=== PATIENT | female | born 1995 | race Caucasian/White ===

== ENCOUNTER 2023-01-29 16:23 | Emergency (ER) | payer OTHER, SELFPAY ==
[2023-01-29 16:30] VITALS: BP 129/72; PULSE 99; RESP 18; TEMP 36.5; O2SAT 100; BMI 31.0
--- NOTE | 2023-01-29 16:39 | ED_ITS ---
HPI - Ear Problem General Chief complaint: Ear Stated complaint: EAR PAIN Time Seen by Provider: 01/29/23 16:25 Source: patient Mode of arrival: walk-in History of Present Illness HPI Narrative: Patient is a 27-year-old female who presents to the emergency department for one day history of left ear pain. She states the area behind her left ear swollen. She has had no objective fevers or upper respiratory symptoms. There has been no drainage from the left ear. She states her pain is radiating into her jaw. She is currently breast-feeding. Related Data Previous Rx's Medication Instructions Recorded ibuprofen 800 mg tablet 800 mg PO Q8H PRN pain #15 tabs 01/29/23 Allergies Allergy/AdvReac Type Severity Reaction Status Date / Time No Known Drug Allergies Allergy Verified 01/29/23 16:30 Review of Systems ROS Constitutional Denies: fever or chills Ears, nose, mouth, and throat Denies: throat pain Cardiovascular Denies: chest pain Respiratory Denies: shortness of breath or cough Gastrointestinal Denies: nausea or vomiting Musculoskeletal Denies: back pain Integumentary/Breast Denies: rash Neurological Reports: headache Exam Narrative Exam Narrative: Gen.: Awake, alert, in no distress Head: Normocephalic, atraumatic ENT: Moist mucous membranes, small auricular lymph node noted, no overlying erythema or fluctuance. No mastoid tenderness. Bilateral tympanic membranes are clear, left external canal is tender and minimally edematous. No drainage noted. No bleeding noted. No visible dental abscess, pharynx is normal with uvula midline and clear speech. Respiratory: No respiratory distress Extremities: Moves extremities equally Psych: Normal mood and affect Neuro: No focal neuro deficit Skin: Warm, dry, intact Constitutional Vital Signs, click to edit/add: Last Vital Signs Temp 97.7 F 01/29/23 16:30 Pulse 99 H 01/29/23 16:30 Resp 18 01/29/23 16:30 BP 129/72 01/29/23 16:30 Pulse Ox 100 01/29/23 16:30 O2 Del Method Room Air 01/29/23 16:30 Course Vital Signs Vital signs: Vital Signs Temperature 97.7 F 01/29/23 16:30 Pulse Rate 99 H 01/29/23 16:30 Respiratory Rate 18 01/29/23 16:30 Blood Pressure 129/72 01/29/23 16:30 Pulse Oximetry 100 01/29/23 16:30 Oxygen Delivery Method Room Air 01/29/23 16:30 Temperature 97.7 F 01/29/23 16:30 Pulse Rate 99 H 01/29/23 16:30 Respiratory Rate 18 01/29/23 16:30 Blood Pressure 129/72 01/29/23 16:30 Pulse Oximetry 100 01/29/23 16:30 Oxygen Delivery Method Room Air 01/29/23 16:30 Medical Decision Making MDM Narrative Medical decision making narrative: Exam is consistent with a radicular lymphadenopathy and early otitis externa although at this time there is no severe infection or evidence of mastoiditis noted. Patient prescribed ibuprofen for pain and swelling as she is breast- feeding. Ciprodex drops given for the left ear. Follow-up with PCP and return to the Emergency Room if symptoms change or worsen. Medical Records Medical records reviewed: Yes I reviewed the patient's medical records Discharge Plan Discharge Chief Complaint: Ear Clinical Impression: Left otitis externa Patient Disposition: Home, Self-Care Time of Disposition Decision: 16:38 Condition: Good Prescriptions / Home Meds: New ibuprofen 800 mg tablet 800 mg PO Q8H PRN (Reason: pain) Qty: 15 0RF Instructions: [facility] (ED) Stand Alone Forms: Portal Instructions Referrals: DUARTE VALDERRAMA [Primary Care Provider] - 1 week
[2023-01-29] MEDS: CIPROFLOXACIN HCL/DEXAMETH 0.3%/0.1% OTIC SUSP 150 DROP/7.5 ML BOTTLE OT (16:48)
== END 2023-01-29 16:49 | disposition home or self-care (01) ==
PROVIDERS: Emergency Provider Student in an Organized Health Care Education/Training Program; PCP Nurse Practitioner Family
DX: H60.92 Unspecified otitis externa, left ear (principal)
CPT/HCPCS: 99282

== ENCOUNTER 2023-01-30 13:30 | Outpatient (OUT) | payer OTHER, SELFPAY ==
[2023-01-30 14:40] LABS: HCG Quantitative 1 mIU/mL
== END 2023-01-30 13:31 | disposition home or self-care (01) ==
LOC: LAB 13:33
PROVIDERS: PCP Nurse Practitioner Family; Visit Provider Obstetrics & Gynecology
DX: N92.6 Irregular menstruation, unspecified (principal)
CPT/HCPCS: 36415; 84702

== ENCOUNTER 2023-02-01 10:03 | Outpatient (OUT) | payer OTHER, SELFPAY ==
[2023-02-01 10:37] LABS: Bilirubin Urine NEGATIVE (NEGATIVE); Blood Urine TRACE-I (NEGATIVE); Clarity Urine CLEAR (CLEAR); Color Urine YELLOW (YELLOW); Glucose Urine UA NEGATIVE (NEGATIVE); Ketones Urine NEGATIVE (NEGATIVE); Leukocyte Esterase Urine NEGATIVE (NEGATIVE); Nitrite Urine POSITIVE (NEGATIVE); Protein Urine NEGATIVE (NEG/TRACE); Specific Gravity Urine 1.025 (1.005-1.025); pH Urine 6.5 (5.0-9.0)
[2023-02-01 10:41] LABS: Basophils Absolute Auto 0.1 10^3/uL (0.0-0.1); Eosinophils Absolute Auto 0.2 10^3/uL (0.0-0.7); Eosinophils Percent Auto 3.8 % (0.9-7.0); Immature Granulocytes Abs Auto 0.02 10^3/uL (0.00-0.03); Immature Granulocytes Pct Auto 0.3 % (0.0-0.5); Lymphocytes Absolute Auto 2.3 10^3/uL (1.2-3.8); Lymphocytes Percent Auto 36.9 % (20.5-60.0); Mean Corpuscular HGB Conc 33.3 g/dL (29.9-35.2); Mean Corpuscular Volume 87.1 fL (81.0-99.0); Mean Platelet Volume 9.5 fL (9.5-13.5); Monocytes Absolute Auto 0.5 10^3/uL (0.3-0.8); Monocytes Percent Auto 8.5 % (1.7-12.0); Neutrophils Percent Auto 49.5 % (43.0-75.0); Platelet Count 328 10^3/uL (150-450); Red Blood Count 4.48 10^6/uL (4.20-5.40); Red Cell Distribution Width 13.9 % (11.0-15.0); White Blood Count 6.1 10^3/uL (4.0-11.0)
[2023-02-01 10:57] LABS: Estimated Average Glucose 94 mg/dL; Glycohemoglobin A1C 4.9 % (4.5-6.2)
[2023-02-01 11:26] LABS: Alanine Aminotransferase 63 U/L (14-59); Albumin Globulin Ratio 1.1; Albumin Level 3.9 g/dL (3.4-5.0); Alkaline Phosphatase 124 U/L (46-116); Anion Gap 11.8; Aspartate Amino Transferase 28 U/L (15-37); BUN Creatinine Ratio 13.8; Bilirubin Total 0.9 mg/dL (0.2-1.0); Calcium 8.7 mg/dL (8.5-10.1); Carbon Dioxide 27.4 mmol/L (21.0-32.0); Chloride 105 mmol/L (98-107); Chol HDL Ratio 2.6; Cholesterol 176 mg/dL (<=200); Estimated GFR (African America >60 (>=60); Estimated GFR (Non-African Ame >60 (>=60); Free T3 2.97 pg/mL (2.18-3.98); Globulin 3.4 g/dL; Glucose 101 mg/dL (74-106); HDL Cholesterol 67 mg/dL (40-60); Potassium 4.2 mmol/L (3.5-5.1); Sodium 140 mmol/L (136-145); Thyroid Stimulating Hormone 1.714 uIU/mL (0.358-3.740); Total Protein 7.3 g/dL (6.4-8.2); Triglycerides 39 mg/dL (<=150); VLDL CHOLESTEROL 7.8 mg/dL
[2023-02-02 11:09] LABS: Insulin 14.2 uIU/mL (2.6-24.9)
== END 2023-02-01 10:04 | disposition home or self-care (01) ==
LOC: LAB 10:03
PROVIDERS: PCP Nurse Practitioner Family; Visit Provider Nurse Practitioner Family
DX: Z00.00 Encounter for general adult medical examination without abnormal findings (principal); R30.0 Dysuria; N92.6 Irregular menstruation, unspecified
CPT/HCPCS: 36415; 80053; 80061; 81003; 82306; 83036; 83525; 83540; 84436; 84443; 84481; 84702; 85025; 87086

== ENCOUNTER 2023-02-01 10:06 | Outpatient (OUT) | payer OTHER, SELFPAY ==
[2023-02-01 11:24] LABS: HCG Quantitative <1 mIU/mL
== END 2023-02-01 10:07 | disposition home or self-care (01) ==
PROVIDERS: PCP Nurse Practitioner Family; Visit Provider Obstetrics & Gynecology
DX: N92.6 Irregular menstruation, unspecified (principal)
CPT/HCPCS: 36415; 84702

== ENCOUNTER 2023-03-19 20:23 | Emergency (ER) | payer OTHER, SELFPAY ==
[2023-03-19 20:26] VITALS: BP 137/81; PULSE 100; RESP 18; TEMP 36.8; O2SAT 99; BMI 30.9
[2023-03-19 20:33] VITALS: O2SAT 99
--- NOTE | 2023-03-19 20:36 | US_ITS ---
The [address] [address] Patient Name: SANDY GODINEZ MRN: [id number] date: 1995 Sex: F Assigned Patient Location: ER Current Patient Location: ED.MAIN Accession/Order Number: [id number] Exam Date: 03/19/2023 20:59 Report Date: 03/19/2023 21:57 At the request of: DAYO ALVES Procedure: US pelvis transvaginal US pelvis transvaginal HISTORY: Left ovarian torsion COMPARISONS: CT pelvis dated 01/15/2022. TECHNIQUE: Transvaginal sonography of the pelvis was performed. FINDINGS: UTERUS: Normal in size and echogenicity. The uterus measures 8.3 x 4.1 x 4.3 cm. MYOMETRIUM:Unremarkable. ENDOMETRIUM: The endometrium is slightly thickened and heterogeneous in echogenicity measuring 1.77 cm. RIGHT OVARY: Within normal limits without suspicious masses or cyst. There is normal blood flow. The right ovary measures 1.9 x 1.6 x 1.4 cm. LEFT OVARY: Within normal limits without suspicious masses or cyst. There is normal blood flow. The left ovary measures 2.6 x 1.6 x 1.8 cm. OTHER:There is no significant free fluid in the pelvis. There are prominent vessels in the left adnexa. US/US pelvis transvaginal IMPRESSION: 1. No evidence of ovarian torsion. 2. Thickened endometrium demonstrating slight heterogeneity. 3. Prominent left adnexal vessels may be seen in a setting of pelvic congestion syndrome. Electronically authenticated by: NERI SPENCER Date: 03/19/2023 21:57
--- NOTE | 2023-03-19 20:39 | ED_ITS ---
HPI - Female Genitourinary General Chief complaint: Abdominal Pain Stated complaint: Cramping, Bleedling, Shooting pain down leg Time Seen by Provider: 03/19/23 20:25 Source: patient Mode of arrival: walk-in History of Present Illness HPI Narrative: patient is a 27-year-old female who presents to the emergency department for pelvic pain. Patient states she is five days late for her regular menstrual period. She states today she noticed brown spotting this morning and has now developed significant pelvic pain, primarily on the left side. She states the pain is shooting down her leg. She states she feels dizzy, nauseous and does not feel right. She is only noticing bleeding when she urinates, she has not had any dysuria. No fevers or vomiting. She is unsure if she may be . No medications taken prior to arrival. Related Data Previous Rx's Medication Instructions Recorded ibuprofen 800 mg tablet 800 mg PO Q8H PRN pain #15 tabs 01/29/23 ibuprofen 600 mg tablet 600 mg PO QID PRN pain #20 tabs 03/19/23 ondansetron 4 mg disintegrating 4 mg PO Q6H PRN nausea and 03/19/23 tablet vomiting #12 tabs Allergies Allergy/AdvReac Type Severity Reaction Status Date / Time No Known Drug Allergies Allergy Verified 01/29/23 16:30 Review of Systems ROS Constitutional Denies: fever or chills Cardiovascular Denies: chest pain Respiratory Denies: shortness of breath or cough Gastrointestinal Reports: abdominal pain and nausea; Denies: vomiting or diarrhea Genitourinary Denies: painful urination Musculoskeletal Denies: back pain Integumentary/Breast Denies: rash Neurological Reports: dizziness Hematologic/Lymphatic Denies: easy bruising Exam Narrative Exam Narrative: Gen.: Awake, alert, in no distress Head: Normocephalic, atraumatic ENT: Moist mucous membranes Respiratory: No respiratory distress Gastrointestinal: Abdomen is soft, nondistended and tender to palpation in the left lower quadrant, voluntary guarding with no rebound; no right lower quadrant tenderness or McBurney's point tenderness, no flank or CVA tenderness Extremities: Moves extremities equally Psych: Normal mood and affect Neuro: No focal neuro deficit Skin: Warm, dry, intact Constitutional Vital Signs, click to edit/add: Last Vital Signs Temp 98.3 F 03/19/23 20:26 Pulse 100 H 03/19/23 20:26 Resp 18 03/19/23 20:26 BP 137/81 03/19/23 20:26 Pulse Ox 99 03/19/23 20:33 O2 Del Method Room Air 03/19/23 20:33 Course Vital Signs Vital signs: Vital Signs Temperature 98.3 F 03/19/23 20:26 Pulse Rate 100 H 03/19/23 20:26 Respiratory Rate 18 03/19/23 20:26 Blood Pressure 137/81 03/19/23 20:26 Pulse Oximetry 99 03/19/23 20:26 Oxygen Delivery Method Room Air 03/19/23 20:26 Temperature 98.3 F 03/19/23 20:26 Pulse Rate 100 H 03/19/23 20:26 Respiratory Rate 18 03/19/23 20:26 Blood Pressure 137/81 03/19/23 20:26 Pulse Oximetry 99 03/19/23 20:33 Oxygen Delivery Method Room Air 03/19/23 20:33 MDM - Female Genitourinary MDM Narrative Medical decision making narrative: her patient was given IV fluids, she declined morphine and was given Toradol and Zofran. Lab studies are unremarkable, test is negative. Urine specimen shows blood with no evidence of infection. Ultrasound shows no evidence of ovarian torsion or ruptured cyst. 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 Zofran and ibuprofen given for home. Return to the Emergency Room if symptoms change or worsen. Medical Records Attestation: I reviewed the patient's medical records. Lab Data Attestation: I reviewed the patient's lab results. Labs: Lab Results 03/19/23 03/19/23 Range/Units 20:40 20:46 WBC 6.2 (4.0-11.0) 10^3/uL RBC 4.30 (4.20-5.40) 10^6/uL Hgb 12.5 (12.0-16.0) g/dL Hct 38.1 (36.0-48.0) % MCV 88.6 (81.0-99.0) fL MCH 29.1 (26.7-34.0) pg MCHC 32.8 (29.9-35.2) g/dL RDW 13.0 (11.0-15.0) % Plt Count 310 (150-450) 10^3/uL MPV 9.5 (9.5-13.5) fL Neut % (Auto) 60.3 (43.0-75.0) % Lymph % (Auto) 18.8 L (20.5-60.0) % [place] % (Auto) 16.1 H (1.7-12.0) % Eos % (Auto) 3.4 (0.9-7.0) % Baso % (Auto) 1.1 (0.2-2.0) % Neut # (Auto) 3.8 (1.4-6.5) 10^3/uL Lymph # (Auto) 1.2 (1.2-3.8) 10^3/uL [place] # (Auto) 1.0 H (0.3-0.8) 10^3/uL Eos # (Auto) 0.2 (0.0-0.7) 10^3/uL Baso # (Auto) 0.1 (0.0-0.1) 10^3/uL Abs Immat Gran (auto) 0.02 (0.00-0.03) 10^3/uL Imm/Tot Granulo (auto) 0.3 (0.0-0.5) % Sodium 136 (136-145) mmol/L Potassium 3.2 L (3.5-5.1) mmol/L Chloride 102 (98-107) mmol/L Carbon Dioxide 27.7 (21.0-32.0) mmol/L Anion Gap 9.5 BUN 7.0 (7.0-18.0) mg/dL Creatinine 0.69 (0.55-1.02) mg/dL Est GFR ( Amer) >60 (>=60) Est GFR (Non-Af Amer) >60 (>=60) BUN/Creatinine Ratio 10.1 Glucose 97 (74-106) mg/dL Calcium 8.9 (8.5-10.1) mg/dL Total Bilirubin 0.5 (0.2-1.0) mg/dL AST 15 (15-37) U/L ALT 32 (14-59) U/L Alkaline Phosphatase 114 (46-116) U/L Total Protein 7.6 (6.4-8.2) g/dL Albumin 3.9 (3.4-5.0) g/dL Globulin 3.7 g/dL Albumin/Globulin Ratio 1.1 Serum HCG, Qual Negative (NEGATIVE) Urine Color Lt. yellow (YELLOW) Urine Clarity Clear (CLEAR) Urine pH 7.0 (5.0-9.0) Ur Specific [place] <=1.005 A (1.005-1.025) Urine Protein Negative (NEG/TRACE) mg/dL Urine Glucose (UA) Negative (NEGATIVE) mg/dL Urine Ketones Negative (NEGATIVE) mg/dL Urine Occult Blood Large A (NEGATIVE) Urine Nitrite Negative (NEGATIVE) Urine Bilirubin Negative (NEGATIVE) Urine Urobilinogen 0.2 (0.2-1.0) EU/dL Ur Leukocyte Esterase Negative (NEGATIVE) Urine RBC 2-5 A (0-2) #/HPF Urine WBC 0-2 A (NONE SEEN) #/HPF Ur Squamous Epith Cells Few A (NONE/RARE) #/LPF Urine Crystals None seen (None Seen) #/HPF Urine Bacteria Small A (NONE SEEN) #/HPF Urine Casts None seen (NONE SEEN) #/LPF Urine Mucus None seen (NONE SEEN) Ur Culture Indicated? No Imaging Data US pelvis: Attestation: I have reviewed the pertinent imaging results. Discharge Plan Discharge Chief Complaint: Abdominal Pain Clinical Impression: Pelvic pain, Nausea Patient Disposition: Home, Self-Care Time of Disposition Decision: 21:51 Condition: Good Prescriptions / Home Meds: New ibuprofen 600 mg tablet 600 mg PO QID PRN (Reason: pain) Qty: 20 0RF ondansetron 4 mg tablet,disintegrating 4 mg PO Q6H PRN (Reason: nausea and vomiting) Qty: 12 0RF No Action ibuprofen 800 mg tablet 800 mg PO Q8H PRN (Reason: pain) Qty: 15 0RF Instructions: Pelvic Pain in Women (ED) Stand Alone Forms: Portal Instructions Referrals: Edward Campuzano DO [Physician] - 1 week DUARTE VALDERRAMA [Primary Care Provider] - 1 week
[2023-03-19] MEDS: ONDANSETRON PF 4 MG/2 ML VIAL IV (20:50)
[2023-03-19] MEDS: 0.9 % SODIUM CHLORIDE 1,000 ML 999 ML IV (20:54)
[2023-03-19 20:57] LABS: Basophils Absolute Auto 0.1 10^3/uL (0.0-0.1); Basophils Percent Auto 1.1 % (0.2-2.0); Eosinophils Absolute Auto 0.2 10^3/uL (0.0-0.7); Eosinophils Percent Auto 3.4 % (0.9-7.0); Hematocrit 38.1 % (36.0-48.0); Hemoglobin 12.5 g/dL (12.0-16.0); Immature Granulocytes Abs Auto 0.02 10^3/uL (0.00-0.03); Immature Granulocytes Pct Auto 0.3 % (0.0-0.5); Lymphocytes Absolute Auto 1.2 10^3/uL (1.2-3.8); Lymphocytes Percent Auto 18.8 % (20.5-60.0); Mean Corpuscular HGB Conc 32.8 g/dL (29.9-35.2); Mean Corpuscular Hemoglobin 29.1 pg (26.7-34.0); Mean Corpuscular Volume 88.6 fL (81.0-99.0); Mean Platelet Volume 9.5 fL (9.5-13.5); Monocytes Percent Auto 16.1 % (1.7-12.0); Neutrophils Absolute Auto 3.8 10^3/uL (1.4-6.5); Neutrophils Percent Auto 60.3 % (43.0-75.0); Platelet Count 310 10^3/uL (150-450); White Blood Count 6.2 10^3/uL (4.0-11.0)
[2023-03-19 20:58] LABS: Bilirubin Urine NEGATIVE (NEGATIVE); Blood Urine LARGE (NEGATIVE); Clarity Urine CLEAR (CLEAR); Color Urine LT. YELLOW (YELLOW); Glucose Urine UA NEGATIVE (NEGATIVE); Ketones Urine NEGATIVE (NEGATIVE); Leukocyte Esterase Urine NEGATIVE (NEGATIVE); Nitrite Urine NEGATIVE (NEGATIVE); Protein Urine NEGATIVE (NEG/TRACE); Specific Gravity Urine <=1.005 (1.005-1.025); Urobilinogen Urine 0.2 EU/dL (0.2-1.0)
[2023-03-19 20:59] LABS: Urine Microscopic Indicated YES
[2023-03-19 21:06] LABS: Bacteria Urine SMALL #/HPF (NONE SEEN); Cast Seen? NONE SEEN #/LPF (NONE SEEN); Crystals Seen? None Seen #/HPF (None Seen); Mucus Urine NONE SEEN (NONE SEEN); Squamous Epithelial Cell Urine FEW #/LPF (NONE/RARE); Urine Culture Indicated NO; WBC Urine 0-2 #/HPF (NONE SEEN)
[2023-03-19 21:07] LABS: HCG Qualitative NEGATIVE (NEGATIVE)
[2023-03-19 21:11] LABS: Alanine Aminotransferase 32 U/L (14-59); Albumin Globulin Ratio 1.1; Albumin Level 3.9 g/dL (3.4-5.0); Alkaline Phosphatase 114 U/L (46-116); Anion Gap 9.5; Aspartate Amino Transferase 15 U/L (15-37); BUN Creatinine Ratio 10.1; Bilirubin Total 0.5 mg/dL (0.2-1.0); Calcium 8.9 mg/dL (8.5-10.1); Carbon Dioxide 27.7 mmol/L (21.0-32.0); Chloride 102 mmol/L (98-107); Estimated GFR (African America >60 (>=60); Estimated GFR (Non-African Ame >60 (>=60); Globulin 3.7 g/dL; Glucose 97 mg/dL (74-106); Potassium 3.2 mmol/L (3.5-5.1); Sodium 136 mmol/L (136-145); Total Protein 7.6 g/dL (6.4-8.2)
[2023-03-19] MEDS: KETOROLAC TROMETHAMINE 30 MG/ML VIAL IVP (21:50)
[2023-03-19] MEDS: ACETAMINOPHEN 325 MG TABLET 650 MG PO (23:01)
[2023-03-19] MEDS: POTASSIUM CHLORIDE 10 MEQ ER TABLET 40 MEQ PO (23:02)
== END 2023-03-19 23:07 | disposition home or self-care (01) ==
PROVIDERS: Physician Assistant; Emergency Provider Student in an Organized Health Care Education/Training Program; PCP Nurse Practitioner Family
DX: R10.2 Pelvic and perineal pain (principal); R11.0 Nausea
CPT/HCPCS: 36415; 76830; 80053; 81001; 84703; 85025; 96361; 96374; 96375; 99285

== ENCOUNTER 2023-06-29 11:26 | Emergency (ER) | payer OTHER, SELFPAY ==
[2023-06-29 11:29] VITALS: BP 152/85; PULSE 89; RESP 18; TEMP 36.8; O2SAT 98; BMI 29.2
--- NOTE | 2023-06-29 11:48 | US_ITS ---
The [address] [address] Patient Name: SANDY GODINEZ MRN: [id number] date: 1995 Sex: F Assigned Patient Location: ER Current Patient Location: ER Accession/Order Number: [id number] Exam Date: 06/29/2023 12:11 Report Date: 06/29/2023 13:41 At the request of: MAYNOR REYES Procedure: US OB transvaginal EXAM: Ultrasound OB pelvis INDICATION: 27 years old Female presenting with left-sided pelvic pain x1 day. COMPARISON: Transvaginal ultrasound 03/19/2023 TECHNIQUE: Transvaginal Grayscale and color Doppler imaging of the pelvis. FINDINGS: No beta hCG value available at the time of this dictation. Anteflexed uterus. Normal appearing intrauterine gestational sac and yolk sac. MSD: 0.9 cm. No pole visualized. 1.2 x 1.5 x 0.7 cm subchorionic hematoma. Closed cervix 3.3 cm in length. Right ovary not visualized. Left ovary: 2.0 x 2.1 x 2.0 cm. No free fluid in the pelvis. US/US OB transvaginal IMPRESSION: 1. Single intrauterine gestational sac with small subchorionic hematoma. No pole visualized at this time likely secondary to early gestational age. Electronically authenticated by: JUDY TALLEY Date: 06/29/2023 13:41
[2023-06-29 12:01] LABS: Bilirubin Urine SMALL (NEGATIVE); Blood Urine SMALL (NEGATIVE); Clarity Urine SL CLOUDY (CLEAR); Color Urine YELLOW (YELLOW); Glucose Urine UA NEGATIVE (NEGATIVE); Ketones Urine TRACE mg/dL (NEGATIVE); Leukocyte Esterase Urine SMALL (NEGATIVE); Nitrite Urine NEGATIVE (NEGATIVE); Protein Urine NEGATIVE (NEG/TRACE); Specific Gravity Urine 1.025 (1.005-1.025)
[2023-06-29 12:02] LABS: Basophils Absolute Auto 0.1 10^3/uL (0.0-0.1); Basophils Percent Auto 1.1 % (0.2-2.0); Eosinophils Absolute Auto 0.2 10^3/uL (0.0-0.7); Eosinophils Percent Auto 3.1 % (0.9-7.0); Hematocrit 40.5 % (36.0-48.0); Hemoglobin 13.1 g/dL (12.0-16.0); Immature Granulocytes Abs Auto 0.03 10^3/uL (0.00-0.03); Immature Granulocytes Pct Auto 0.5 % (0.0-0.5); Lymphocytes Absolute Auto 2.1 10^3/uL (1.2-3.8); Lymphocytes Percent Auto 32.2 % (20.5-60.0); Mean Corpuscular HGB Conc 32.3 g/dL (29.9-35.2); Mean Corpuscular Hemoglobin 28.5 pg (26.7-34.0); Mean Platelet Volume 9.9 fL (9.5-13.5); Monocytes Absolute Auto 0.5 10^3/uL (0.3-0.8); Monocytes Percent Auto 8.1 % (1.7-12.0); Neutrophils Absolute Auto 3.5 10^3/uL (1.4-6.5); Platelet Count 308 10^3/uL (150-450); Red Cell Distribution Width 13.4 % (11.0-15.0); White Blood Count 6.4 10^3/uL (4.0-11.0)
[2023-06-29 12:04] LABS: Urine Microscopic Indicated YES
[2023-06-29] MEDS: ACETAMINOPHEN 325 MG TABLET 650 MG PO (12:04)
[2023-06-29 12:08] LABS: Bacteria Urine LARGE #/HPF (NONE SEEN); Cast Seen? NONE SEEN #/LPF (NONE SEEN); Crystals Seen? None Seen #/HPF (None Seen); Mucus Urine MODERATE (NONE SEEN); Squamous Epithelial Cell Urine MODERATE #/LPF (NONE/RARE); Urine Culture Indicated YES
[2023-06-29 12:16] LABS: Alanine Aminotransferase 126 U/L (14-59); Albumin Globulin Ratio 0.9; Albumin Level 3.6 g/dL (3.4-5.0); Alkaline Phosphatase 121 U/L (46-116); Anion Gap 13.4; Aspartate Amino Transferase 40 U/L (15-37); BUN Creatinine Ratio 10.1; Carbon Dioxide 25.2 mmol/L (21.0-32.0); Chloride 102 mmol/L (98-107); Estimated GFR (African America >60 (>=60); Estimated GFR (Non-African Ame >60 (>=60); Globulin 3.8 g/dL; Glucose 110 mg/dL (74-106); Potassium 3.6 mmol/L (3.5-5.1); Sodium 137 mmol/L (136-145); Total Protein 7.4 g/dL (6.4-8.2)
[2023-06-29 12:26] VITALS: BP 144/71
[2023-06-29 12:42] LABS: HCG Quantitative 16294 mIU/mL
--- NOTE | 2023-06-29 15:14 | ED.FEMALEGU1 ---
HPI - Female Genitourinary General Chief complaint: Urogenital-Female Stated complaint: PELVIC PAIN 6 WEEKS Time Seen by Provider: 06/29/23 11:48 Source: patient Mode of arrival: walk-in Limitations: no limitations History of Present Illness HPI Narrative: The patient is 6 weeks coming to the ER with a left groin pain she mentioned that this is her third and she did had some hip pain before with but not as much as today. No fever no chills no change in bowel movement no abdominal pain and she does have some nausea. She did not have her follow-up with the [employer] doctor yet. No vaginal bleeding and the patient is O- blood group Related Data Previous Rx's Medication Instructions Recorded amoxicillin 875 mg-potassium 1 tab PO Q12H #14 tabs 06/29/23 clavulanate 125 mg tablet Allergies Allergy/AdvReac Type Severity Reaction Status Date / Time No Known Drug Allergies Allergy Verified 01/29/23 16:30 Review of Systems ROS Status of ROS 10 or more systems reviewed and unremarkable except as noted in history and below PFSH [facility] Social History Smoking status: Never smoker Exam Narrative Exam Narrative: Nurses notes and vital signs reviewed and patient is not hypoxic. General: Well-appearing and in no apparent distress. Skin: Warm, dry, no pallor noted. No rash. Head: Normocephalic, atraumatic. Neck: Supple, non-tender. Eye: Pupils are equal, round and EOMI. No scleral icterus. Ears, Nose, Mouth, and Throat: TM are clear, no nasal mucosal hypertrophy. Oral mucosa is moist, no posterior oropharynx erythema, uvula is mid-line Cardiovascular: Regular Rate and Rhythm without murmur, gallop or rub. Respiratory: No accessory muscle use or respiratory distress. Lungs are clear to auscultation, no wheezing, rales or rhonchi Chest Wall: no tenderness Back: No midline thoracic or lumbar vertebral tenderness. No CVA tenderness Musculoskeletal: normal ROM, no calf or popliteal tenderness, no lower extremity edema/swelling, the patient have some left groin pain with no hernia or any swelling noted GI: Abdomen is soft, non-distended. Normal bowel sounds. No masses appreciated. No tenderness to palpation. No rebound, guarding, or rigidity noted. Neurological: A&O x4. No cranial nerve dysfunction observed. No truncal ataxia. Moves all extremities. Sensation intact. Psychiatric: Cooperative and interactive. Normal mood and affect. Constitutional Vital Signs, click to edit/add: Last Vital Signs Temp 98.2 F 06/29/23 11:29 Pulse 89 06/29/23 11:29 Resp 18 06/29/23 11:29 BP 144/71 H 06/29/23 12:26 Pulse Ox 98 06/29/23 11:29 O2 Del Method Room Air 06/29/23 11:29 Course Vital Signs Vital signs: Vital Signs Temperature 98.2 F 06/29/23 11:29 Pulse Rate 89 06/29/23 11:29 Respiratory Rate 18 06/29/23 11:29 Blood Pressure 152/85 H 06/29/23 11:29 Pulse Oximetry 98 06/29/23 11:29 Oxygen Delivery Method Room Air 06/29/23 11:29 Temperature 98.2 F 06/29/23 11:29 Pulse Rate 89 06/29/23 11:29 Respiratory Rate 18 06/29/23 11:29 Blood Pressure 144/71 H 06/29/23 12:26 Pulse Oximetry 98 06/29/23 11:29 Oxygen Delivery Method Room Air 06/29/23 11:29 MDM - Female Genitourinary MDM Narrative Medical decision making narrative: CBC and chemistry showed no acute significant pathology it was noted that the patient blood pressure was elevated mildly but when repeated reading it was normal. And also was noted that the patient liver enzymes were mildly elevated she was instructed that she need to follow-up with her primary care doctor for further evaluation of that in 1 week. The patient also had a ultrasound pelvic that shows that the patient have intrauterine with a small subchorionic hematoma I did speak with the OB compensation specialist Dr Campuzano , and he did not recommend any treatment with RhoGam . The patient urine shows some bacteriuria that would be covered with Augmentin and the patient will follow-up with her OB doctor within a week she will take Tylenol as supportive care and monitor her symptoms The patient is to follow up with primary care physician in next 2-3 days or to return to the emergency department should any of the signs or symptoms worsen or new symptoms develop. The patient agrees with the following Diagnosis and Treatment plan and the patient will be discharged home. Lab Data Labs: Lab Results 06/29/23 06/29/23 Range/Units 11:35 11:51 WBC 6.4 (4.0-11.0) 10^3/uL RBC 4.60 (4.20-5.40) 10^6/uL Hgb 13.1 (12.0-16.0) g/dL Hct 40.5 (36.0-48.0) % MCV 88.0 (81.0-99.0) fL MCH 28.5 (26.7-34.0) pg MCHC 32.3 (29.9-35.2) g/dL RDW 13.4 (11.0-15.0) % Plt Count 308 (150-450) 10^3/uL MPV 9.9 (9.5-13.5) fL Neut % (Auto) 55.0 (43.0-75.0) % Lymph % (Auto) 32.2 (20.5-60.0) % [place] % (Auto) 8.1 (1.7-12.0) % Eos % (Auto) 3.1 (0.9-7.0) % Baso % (Auto) 1.1 (0.2-2.0) % Neut # (Auto) 3.5 (1.4-6.5) 10^3/uL Lymph # (Auto) 2.1 (1.2-3.8) 10^3/uL [place] # (Auto) 0.5 (0.3-0.8) 10^3/uL Eos # (Auto) 0.2 (0.0-0.7) 10^3/uL Baso # (Auto) 0.1 (0.0-0.1) 10^3/uL Abs Immat Gran (auto) 0.03 (0.00-0.03) 10^3/uL Imm/Tot Granulo (auto) 0.5 (0.0-0.5) % Sodium 137 (136-145) mmol/L Potassium 3.6 (3.5-5.1) mmol/L Chloride 102 (98-107) mmol/L Carbon Dioxide 25.2 (21.0-32.0) mmol/L Anion Gap 13.4 BUN 7.0 (7.0-18.0) mg/dL Creatinine 0.69 (0.55-1.02) mg/dL Est GFR ( Amer) >60 (>=60) Est GFR (Non-Af Amer) >60 (>=60) BUN/Creatinine Ratio 10.1 Glucose 110 H (74-106) mg/dL Calcium 9.0 (8.5-10.1) mg/dL Total Bilirubin 1.0 (0.2-1.0) mg/dL AST 40 H (15-37) U/L ALT 126 H (14-59) U/L Alkaline Phosphatase 121 H (46-116) U/L Total Protein 7.4 (6.4-8.2) g/dL Albumin 3.6 (3.4-5.0) g/dL Globulin 3.8 g/dL Albumin/Globulin Ratio 0.9 HCG, Quant 74516 mIU/mL Urine Color Yellow (YELLOW) Urine Clarity Sl cloudy (CLEAR) Urine pH 6.0 (5.0-9.0) Ur Specific [place] 1.025 (1.005-1.025) Urine Protein Negative (NEG/TRACE) mg/dL Urine Glucose (UA) Negative (NEGATIVE) mg/dL Urine Ketones Trace A (NEGATIVE) mg/dL Urine Occult Blood Small A (NEGATIVE) Urine Nitrite Negative (NEGATIVE) Urine Bilirubin Small A (NEGATIVE) Urine Urobilinogen 1.0 (0.2-1.0) EU/dL Ur Leukocyte Esterase Small A (NEGATIVE) Urine RBC 2-5 A (0-2) #/HPF Urine WBC 5-10 A (NONE SEEN) #/HPF Ur Squamous Epith Cells Moderate A (NONE/RARE) #/LPF Urine Crystals None seen (None Seen) #/HPF Urine Bacteria Large A (NONE SEEN) #/HPF Urine Casts None seen (NONE SEEN) #/LPF Urine Mucus Moderate A (NONE SEEN) Ur Culture Indicated? Yes Discharge Plan Discharge Chief Complaint: Urogenital-Female Clinical Impression: Pelvic pain, Asymptomatic bacteriuria Patient Disposition: Home, Self-Care Time of Disposition Decision: 14:37 Condition: Good Mode of Transportation: Private Vehicle Prescriptions / Home Meds: New amoxicillin-pot clavulanate 875-125 mg tablet 1 tab PO Q12H Qty: 14 0RF Instructions: Urinary Tract Infection in (ED), Pelvic Pain (ED) Stand Alone Forms: Portal Instructions Referrals: Edward Campuzano DO [Physician] - 1 week DUARTE VALDERRAMA [Primary Care Provider] - 1 week Discharge Date/Time: 06/29/23 14:44
== END 2023-06-29 14:44 | disposition home or self-care (01) ==
PROVIDERS: Emergency Provider Emergency Medicine; PCP Nurse Practitioner Family
DX: O26.891 Other specified pregnancy related conditions, first trimester (principal); R10.2 Pelvic and perineal pain; R82.71 Bacteriuria; Z3A.01 Less than 8 weeks gestation of pregnancy
CPT/HCPCS: 36415; 76817; 80053; 81001; 84702; 85025; 87086; 99285

== ENCOUNTER 2023-07-19 08:27 | Outpatient (OUT) | payer OTHER, SELFPAY ==
--- NOTE | 2023-07-19 08:30 | US_ITS ---
[address] [address] Patient Name: SANDY GODINEZ MRN: [id number] date: 1995 Sex: F Assigned Patient Location: [facility] Current [facility] Accession/Order Number: [id number] Exam Date: 07/19/2023 08:30 Report Date: 07/19/2023 09:02 At the request of: JOSE MIGUEL BOATENG Procedure: US OB transvaginal EXAMINATION: US OB transvaginal HISTORY: MISSED MENSES COMPARISON: Ultrasound OB transvaginal 06/29/2023 FINDINGS: GESTATIONAL SAC: Present and normal appearing. YOLK SAC: Present and normal appearing. POLE: Present and normal appearing. CARDIAC: Present. UTERUS: Small subchorionic hematoma, 1.5 cm. OVARIES: Right: Normal. Left: Normal. CERVIX: 3.5 cm in length and closed. CUL-DE-SAC: Normal. OTHER: None. AGE BY LMP: 9 weeks 0 days NOVA BY LMP: 02/21/2024 AGE BY US CRL: 8 weeks 3 days NOVA BY US CRL: 02/25/2024 US/US OB transvaginal IMPRESSION: 1. Single live intrauterine . Electronically authenticated by: DAVID BLACKMON Date: 07/19/2023 09:02
--- OUTSIDE RECORDS SUMMARY | 2023-07-19 08:33 | XMS_ITS | CCD ---
Author Name Unknown Address [address] [address] [place] [address] Organization [facility] Care Team Providers Care Pest Technician Name Role Phone Farrah Garcia Primary Care Provider VIBHA JOHNSON Attending Unavailable VIBHA JOHNSON Referring Unavailable FARRAH GARCIA Primary Care Unavailable Kelli Oliver Primary Care Physician MISElias, DR LORENZANA Primary Care Unavailable MANOJ CUNNINGHAM Consulting Unavailable MANOJ CUNNINGHAM Admitting Unavailable MANOJ CUNNINGHAM Attending Unavailable ILIR JUAREZ Consulting Unavailable KILO, DR GILLESPIE Attending Unavailable KILO, DR GILLESPIE Admitting Unavailable KARBELIA, DR MIMS Consulting Unavailable REQUEST, NONE LISTED Primary Care Unavaila naina BOATENG, DR GILLESPIE Consulting Unavailable KILO, DR GILLESPIE Procedure Practitioner Unavailab KRISTINA Keller Attending Unavailable KRISTINA VELEZ Consulting Unavailable KRISTINA VELEZ Admitting Unavailable SHRUTI, DR LORENZANA Primary Care Unavailable DAMIAN, DR LYLA Sanchez Consulting Unavailable DAMIAN, DR LYLA Sanchez Admitting Unavailable DAMIAN, DR LYLA Sanchez Attending Unavailable REQUEST, NONE LISTED Primary Care UnavailGagandeep Faustin Consulting Unavailable KILO, DR GILLESPIE Consulting Unavailable MISElias, DR LORENZANA Primary Care Unavailable KILO, DR GILLESPIE Attending Unavailable KILO, DR GILLESPIE Admitting Unavailable MISElias, DR LORENZANA Primary Care Unavailable KRISTINA VELEZ Attending Unavailable KRISTINA VELEZ Consulting Unavailable KRISTINA VELEZ Admitting Unavailable KARASIMilka, DR MIMS Attending Unavailable KARASIK, DR MIMS Consulting Unavailable KARBELIA, DR MIMS Admitting Unavailable MISC, DR LORENZANA Primary Care Unavailable KILO, DR GILLESPIE Consulting Unavailable ZIEBER, DR DAVID Sanchez Consulting Unavailable NILL, DR GARLAND Consulting Unavailable IGOR DIAZ Consulting Unavailable TROTTI GIROLAADALID Consulting Unavailable KILO, DR GILLESPIE Consulting Unavailable KILO, DR GILLESPIE Admitting Unavailable KILO, DR GILLESPIE Attending Unavailable LAVELLE, DUARTE Primary Care Unavailable LAVELLE, DUARTE Attending Unavailable LAVELLE, DUARTE Consulting Unavailable LAVELLE, DUARTE Primary Care Unavailable LAVELLE, DUARTE Admitting Unavailable MISC, DR LORENZANA Primary Care Unavailable KILO, DR GILLESPIE Consulting Unavailable KILO, DR GILLESPIE Admitting Unavailable KILO, DR GILLESPIE Attending Unavailable MISC, DR LORENZANA Primary Care Unavailable KILO, DR GILLESPIE Consulting Unavailable KILO, DR GILLESPIE Attending Unavailable KILO, DR GILLESPIE Admitting Unavailable KARASIK, DR MIMS Attending Unavailable KARASIK, DR MIMS Consulting Unavailable KARASIK, DR MIMS Admitting Unavailable MISC, DR LORENZANA Primary Care Unavailable KARASIK, DR MIMS Attending Unavailable KARASIK, DR MIMS Consulting Unavailable KARASIK, DR MIMS Admitting Unavailable MISC, DR LORENZANA Primary Care Unavailable MISC, DR LORENZANA Primary Care Unavailable KARASIK, DR MIMS Consulting Unavailable KARASIK, DR MIMS Admitting Unavailable KARASIK, DR MIMS Attending Unavailable KILO, DR GILLESPIE Consulting Unavailable KILO, DR GILLESPIE Admitting Unavailable KILO, DR GILLESPIE Attending Unavailable REQUEST, DR NONE LISTED Primary Care Unavaila ble ZIEBER, DR DAVID Sanchez Consulting Unavailable MISC, DR LORENZANA Primary Care Unavailable KILO, DR GILLESPIE Consulting Unavailable KILO, DR GILLESPIE Admitting Unavailable KILO, DR GILLESPIE Attending Unavailable ZIEBER, DR DAVID Sanchez Consulting Unavailable KILO, DR GILLESPIE Consulting Unavailable KILO, DR GILLESPIE Admitting Unavailable KILO, DR GILLESPIE Attending Unavailable MISC, DR LORENZANA Primary Care Unavailable ILIR JUAREZ Consulting Unavailable ANN, ILIR Admitting Unavailable ILIR JUAREZ Attending Unavailable FARRAH GARCIA Primary Care Unavailable LAVELLE, DUARTE Consulting Unavailable LAVELLE, DUARTE Primary Care Unavailable LAVELLE, DUARTE Admitting Unavailable LAVELLE, DUARTE Attending Unavailable KILO, DR GILLESPIE Consulting Unavailable KILO, DR GILLESPIE Admitting Unavailable KILO, DR GILLESPIE Attending Unavailable REQUEST, DR NONE LISTED Primary Care Unavaila ble ZIEBJESS, DR DAVID Sanchez Consulting Unavailable KILO, DR GILLESPIE Attending Unavailable WEST, DR KIRK Johnosn Consulting Unavailable KILO, DR JOSE MIGUEL Admitting Unavailable DR HARRIETT BAHENA Primary Care Unavailable DR JOSE MIGUEL BOATENG Consulting Unavailable JOSE MIGUEL BOATENG Attending Unavailable Royer Simmons Attending Unavailab Royer Watts Admitting Unavailab [facility], Yasir Guillen Primary Care Unavailable Allergies Allergy Classification Reported Allergen(s) Allergy Type Date of Onset Reaction(s) Facility (1 source) Desonide Drug Allergy 08-24-2018 [facility] Medications Current Medications Medication Drug Class(es) Dates Sig (Normalized) Sig (Original) predniSONE (1 source) Start: 03-13-2013 predniSONE Ora l, Daily, Refills(s) 0 Start Date: 03/13/13 Status: Ordered Completed/Discontinued Medications Medication Drug Class(es) Dates Sig (Normalized) Sig (Original) cephalexin 500 mg oral capsule (1 source) Cephalosporin Antibacterial Start: 01-16-2021 take 1 capsule by mouth three times daily Keflex 500 mg Cap 500 mg = 1 cap(s), Oral, TID, Take one capsule by mouth three times a day for ten days, # 30 cap(s), Refills(s) 0 Start Date: 01/16/21 Status: Ordered naproxen 375 mg oral tablet (1 source) Nonsteroidal Anti-inflammatory Drug Start: 03-13-2013 take 1 tablet by mouth twice daily Naprosyn 375 mg Tab 375 mg = 1 tab(s), Oral, BID, Take one by mouth two times a day, # 21 tab(s), Refills(s) 0, 0, Print Requisition Start Date: 03/13/13 Status: Ordered Problems Active Problems Problem Classification Problem Date Documented Da te Episodic/Chronic Deficiency and other anemia (5 sources) Anemia, unspecified; 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: [ANEMIA UNSPECIFIED] Onset: 04-23-2022 Episodic Esophageal disorders (1 source) Gastro-esophageal reflux disease without esophagitis; 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: [GERD WITHOUT ESOPHAGITIS] Onset: 02-05-2022 Chronic Mood disorders (1 source) Bipolar disorder, unspecified; 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: [BIPOLAR DISORDER UNSPECIFIED] Onset: 02-05-2022 Chronic Other complications of (1 source) A/N care: poor obstetric history; 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: [Supervision of with other poor reproductive or obstetric history, unspecified trimester] Episodic Other screening for suspected conditions (not mental disorders or infectious disease) (13 sources) Encounter for screening for malignant neoplasm of cervix; 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: [Encounter for screening for diabetes mellitus] Onset: 09-28-2021 Episodic Spondylosis; intervertebral disc disorders; other back problems (1 source) Chronic low back pain; 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: [Chronic low back pain, unspecified back pain laterality, unspecified whether sciatica present] Episodic Unclassified (1 source) CONTACT W/AND (SUSP) EXPOS COVID-19; 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: [CONTACT W/AND (SUSP) EXPOS COVID-19] Onset: 02-15-2022 Past or Other Problems Problem Classification Problem Date Documented Date Episodic/Chronic Abdominal pain (6 sources) Left lower quadrant pain; 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: [Pelvic and perineal pain] Onset: 11-27-2021 Episodic Diabetes mellitus without complication (1 source) Other abnormal glucose; 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: [OTHER ABNORMAL GLUCOSE] Onset: 04-23-2022 Episodic E Codes: Fall (1 source) Fall (on) (from) unspecified stairs and steps, initial encounter; 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: [FALL ON FROM UNS STAIRS STEPS INIT] Onset: 09-18-2021 Episodic Early or threatened labor (9 sources) False labor at or after 37 completed weeks of gestation; 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: [ labor without delivery, third trimester] Onset: 12-30-2021 Episodic Immunizations and screening for infectious disease (5 sources) Encounter for screening for infections with a predominantly sexual mode of transmission; 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: [ENC SCREEN INFECTIONS SEXL TRANSMS] Onset: 10-26-2021 Episodic Influenza (1 source) Influenza due to other identified influenza virus with other respiratory manifestations; 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: [FLU D/T OTH ID FLU VIR OTH RSP MANF] Onset: 10-26-2021 Episodic Malaise and fatigue (4 sources) Other fatigue; 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: [OTHER FATIGUE] Onset: 04-18-2022 Episodic Nausea and vomiting (5 sources) Nausea; 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: [Nausea with vomiting, unspecified] Onset: 10-24-2021 Episodic Nonspecific chest pain (4 sources) Precordial pain; 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: [Chest pain, unspecified] Onset: 02-10-2022 Episodic OB-related trauma to perineum and vulva (1 source) First degree perineal laceration during delivery; 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: [FIRST DEG PERINEAL LAC DUR DELIV] Onset: 02-15-2022 Episodic Other aftercare (1 source) Other penitentiary (current) 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; 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: [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 THERAPY] Onset: 02-05-2022 Episodic Other complications of ; puerperium affecting management of mother (2 sources) Other complications of the puerperium, not elsewhere classified; 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: [OTHER COMPLICATIONS PUERPERIUM NEC] Onset: 02-13-2022 Episodic Other complications of (2 sources) Decreased movements, unspecified trimester, not applicable or unspecified; 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: [DECR MOVEMENTS UNS TRI NA/UNS] Onset: 02-08-2022 Episodic Other complications of (5 sources) Other specified related conditions, third trimester; 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: [OTH SPEC PREG RELATED COND 3RD TRI] Onset: 12-29-2021 Episodic Other complications of (3 sources) Decreased movements, third trimester, not applicable or unspecified; 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: [DECR MOVEMENTS 3RD TRI NA/UNS] Onset: 02-06-2022 Episodic Other complications of (5 sources) Other specified related conditions, second trimester; 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: [OTH SPEC PREG RELATED COND 2ND TRI] Onset: 10-26-2021 Episodic Other complications of (1 source) Other viral diseases complicating , second trimester; 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: [OTH VIRAL DZ COMP PREG SECOND TRI] Onset: 10-26-2021 Episodic Other complications of (1 source) Injury, poisoning and certain other consequences of external causes complicating , second trimester; 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: [INJ POISON OTH EXT COMP PG 2ND TRI] Onset: 09-18-2021 Episodic Other connective tissue disease (1 source) Fibromyalgia; 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: [FIBROMYALGIA] Onset: 02-05-2022 Episodic Other female genital disorders (5 sources) Other specified noninflammatory disorders of vagina; 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: [OTH SPEC NONINFLAMMATORY D/O VAGINA] Onset: 10-26-2021 Episodic Other inflammatory condition of skin (5 sources) Pruritus, unspecified; 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: [PRURITUS UNSPECIFIED] Onset: 10-31-2021 Episodic Other non-traumatic joint disorders (3 sources) Pain in right ankle and joints of right foot; 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: [PAIN IN RIGHT ANKLE] Onset: 09-16-2021 Episodic Other and delivery including normal (1 source) Single live ; 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: [SINGLE LIVE ] Onset: 02-15-2022 Episodic Other skin disorders (3 sources) Rash and other nonspecific skin eruption; 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: [RASH OTH NONSPECIFIC SKIN ERUPTION] Onset: 10-29-2021 Episodic Residual codes; unclassified (1 source) Type O blood, Rh negative; 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: [TYPE O BLOOD RH NEGATIVE] Onset: 02-15-2022 Episodic Residual codes; unclassified (1 source) 39 weeks gestation of ; 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: [39 WEEKS GESTATION OF ] Onset: 02-15-2022 Episodic Residual codes; unclassified (1 source) 38 weeks gestation of ; 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: [38 WEEKS GESTATION OF ] Onset: 02-06-2022 Episodic Residual codes; unclassified (1 source) 37 weeks gestation of ; 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: [37 WEEKS GESTATION OF ] Onset: 01-26-2022 Episodic Residual codes; unclassified (1 source) 35 weeks gestation of ; 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: [35 WEEKS GESTATION OF ] Onset: 01-22-2022 Episodic Residual codes; unclassified (1 source) 33 weeks gestation of ; 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: [33 WEEKS GESTATION OF ] Onset: 01-08-2022 Episodic Residual codes; unclassified (1 source) 31 weeks gestation of ; 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: [31 WEEKS GESTATION OF ] Onset: 12-22-2021 Episodic Residual codes; unclassified (1 source) Unspecified blood type, Rh negative; 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: [UNSPECIFIED BLOOD TYPE RH NEGATIVE] Onset: 11-29-2021 Episodic Residual codes; unclassified (1 source) 28 weeks gestation of ; 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: [28 WEEKS GESTATION OF ] Onset: 11-29-2021 Episodic Residual codes; unclassified (1 source) 27 weeks gestation of ; 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: [27 WEEKS GESTATION OF ] Onset: 11-27-2021 Episodic Residual codes; unclassified (1 source) 26 weeks gestation of ; 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: [26 WEEKS GESTATION OF ] Onset: 10-31-2021 Episodic Residual codes; unclassified (1 source) 23 weeks gestation of ; 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: [23 WEEKS GESTATION OF ] Onset: 10-26-2021 Episodic Residual codes; unclassified (1 source) 18 weeks gestation of ; 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: [18 WEEKS GESTATION OF ] Onset: 09-18-2021 Episodic Sprains and strains (1 source) Sprain of unspecified ligament of right ankle, initial encounter; 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: [SPRAIN UNS LIGAMENT RT ANKLE INIT] Onset: 09-18-2021 Episodic Results Test Name Value Interpretation Reference Range Facility In office Testingon 09-07-19 23 In office Testing [id number] 1.00CD:127 Normal [facility] CBC AUTO DIFFon 07-30-2022 BASO # 0.1 103/ul Normal 0.0-0.1 [facility] Comment on above: Performed By: #### U RCX #### [facility] [address] [place] [address] Dr. Caitlin Martinez Basophils/100 WBC (Bld) 1.1 % Normal 0.2-2.0 [facility] Comment on above: Performed By: #### U RCX #### [facility] [address] [place] [address] Dr. Caitlin Martinez EO # 0.3 103/ul Normal 0.0-0.7 [facility] Comment on above: Performed By: #### U RCX #### [facility] [address] [place] [address] Dr. Caitlin Martinez Eosinophils/100 WBC (Bld) 4.7 % Normal 0.9-7.0 [facility] Comment on above: Performed By: #### U RCX #### [facility] [address] [place] [address] Dr. Caitlin Martinez Erythrocyte distribution width (RBC) [Ratio] 14.7 % Normal 11.0-15.0 [facility] Comment on above: Performed By: #### U RCX #### [facility] [address] [place] [address] Dr. Caitlin Martinez Hematocrit (Bld) [Volume fraction] 39.3 % Normal 36.0-48.0 [facility] Comment on above: Performed By: #### U RCX #### [facility] [address] [place] [address] Dr. Caitlin Martinez Hemoglobin (Bld) [Mass/Vol] 12.7 g/dL Normal 12.0-16.0 [facility] Comment on above: Performed By: #### U RCX #### [facility] [address] [place] [address] Dr. Caitlin Martinez IG # 0.02 10e3/ul Normal 0.00-0.03 [facility] Comment on above: Performed By: #### U RCX #### [facility] [address] [place] [address] Dr. Caitlin Martinez IG % 0.3 % Normal 0.0-0.5 [facility] Comment on above: Performed By: #### U RCX #### [facility] [address] [place] [address] Dr. Caitlin Martinez LYMPH # 2.5 103/ul Normal 1.2-3.8 [facility] Comment on above: Performed By: #### U RCX #### [facility] [address] [place] [address] Dr. Caitlin Martinez Lymphocytes/100 WBC (Bld) 34.5 % Normal 20.5-60.0 [facility] Comment on above: Performed By: #### U RCX #### [facility] [address] [place] [address] Dr. Caitlin Martinez MANUAL DIFF REQ NO Normal [facility] Comment on above: Performed By: #### U RCX #### [facility] [address] [place] [address] Dr. Caitlin Martinez MCH (RBC) [Entitic mass] 27.3 pg Normal 26.7-34.0 [facility] Comment on above: Performed By: #### U RCX #### [facility] [address] [place] [address] Dr. Caitlin Martinez MCHC (RBC) [Mass/Vol] 32.3 g/dL Normal 29.9-35.2 [facility] Comment on above: Performed By: #### U RCX #### [facility] [address] [place] [address] Dr. Caitlin Martinez MCV (RBC) [Entitic vol] 84.5 fL Normal 81.0-99.0 [facility] Comment on above: Performed By: #### U RCX #### [facility] [address] [place] [address] Dr. Caitlin Martinez MONO # 0.5 103/ul Normal 0.3-0.8 [facility] Comment on above: Performed By: #### U RCX #### [facility] [address] [place] [address] Dr. Caitlin Martinez Monocytes/100 WBC (Bld) 7.3 % Normal 1.7-12.0 [facility] Comment on above: Performed By: #### U RCX #### [facility] [address] [place] [address] Dr. Caitlin Martinez NEUT # 3.8 103/ul Normal 1.4-6.5 [facility] Comment on above: Performed By: #### U RCX #### [facility] [address] [place] [address] Dr. Caitlin Martinez Neutrophils/100 WBC (Bld) 52.1 % Normal 43.0-75.0 [facility] Comment on above: Performed By: #### U RCX #### [facility] [address] [place] [address] Dr. Caitlin Martinez Platelet mean volume (Bld) [Entitic vol] 9.0 fL Critically low 9.5-13.5 [facility] Comment on above: Performed By: #### U RCX #### [facility] [address] [place] [address] Dr. Caitlin Martinez PLT 368 103/ul Normal 150-450 [facility] Comment on above: Performed By: #### U RCX #### [facility] [address] [place] [address] Dr. Caitlin Martinez RBC 4.65 106/ul Normal 4.20-5.40 [facility] Comment on above: Performed By: #### U RCX #### [facility] [address] [place] [address] Dr. Caitlin Martinez WBC 7.2 103/ul Normal 4.0-11.0 [facility] Comment on above: Performed By: #### U RCX #### [facility] [address] [address] [address] Caitlin Martinez IRONon 07-30-2022 Iron [Mass/Vol] 43.0 ug/dL Critically low 50.0-170.0 [facility] Comment on above: Performed By: #### U RCX #### [facility] [address] [place] [address] Dr. Caitlin Martinez PAP ACOG PANEL 2: 21 to 29on 07-30-2022 . . Normal [facility] Comment on above: Performed By: #### U RCX #### [facility] [address] [place] [address] Dr. Caitlin Martinez Age Gdln ACOG Testing [facility] Comment on above: Performed By: #### U RCX #### [facility] [address] [place] [address] Dr. Caitlin Martinez DIAGNOSIS: Comment [facility] Comment on above: Result Comment: NEGA TIVE FOR INTRAEPITHELIAL LESION OR MALIGNANCY. Performed By: #### U RCX #### [facility] [address] [place] [address] Dr. Caitlin Martinez Methodology: Comment [facility] Comment on above: Result Comment: This liquid based ThinPrep(R) pap test was screened with the use of an image guided system. Performed By: #### U RCX #### [facility] [address] [place] [address] Dr. Caitlin Martinez Note: Comment [facility] Comment on above: Result Comment: The Pap smear is a screening test designed to aid in the detection of premalignant and malignant conditions of the uterine cervix. It is not a diagnostic procedure and should not be used as the sole means of detecting cervical cancer. Both false-positive and false-negative reports do occur. . Performed By: #### U RCX #### [facility] [address] [place] [address] Dr. Caitlin Martinez Performed by: Comment Normal [facility] Comment on above: Result Comment: Bhavna Cormier, Connection Worker (ASCP) Performed By: #### U RCX #### [facility] [address] [place] [address] Dr. Caitlin Martinez Reflex Criteria: Comment Normal [facility] Comment on above: Result Comment: The HPV DNA reflex criteria were not met with this specimen result therefore, no HPV testing was performed. . Performed By: #### U RCX #### [facility] [address] [place] [address] Dr. Caitlin Martinez Specimen adequacy: Comment Normal [facility] Comment on above: Result Comment: Sati sfactory for evaluation. Endocervical and/or squamous metaplastic cells (endocervical component) are present. Performed By: #### U RCX #### [facility] [address] [place] [address] Dr. Caitlin Martinez INSULINon 04-19-2022 Insulin 9.1 uIU/mL Normal 2.6-24.9 [facility] Comment on above: Performed By: #### I HORACIO #### [facility] [address] [place] [address] Dr. Caitlin Martinez CBC AUTO DIFFon 04-18-2022 BASO # 0.1 103/ul Normal 0.0-0.1 [facility] Comment on above: Performed By: #### U RCX #### [facility] [address] [place] [address] Dr. Caitlin Martinez Basophils/100 WBC (Bld) 1.0 % Normal 0.2-2.0 [facility] Comment on above: Performed By: #### U RCX #### [facility] [address] [place] [address] Dr. Caitlin Martinez EO # 0.3 103/ul Normal 0.0-0.7 [facility] Comment on above: Performed By: #### U RCX #### [facility] [address] [place] [address] Dr. Caitlin Martinez Eosinophils/100 WBC (Bld) 4.1 % Normal 0.9-7.0 [facility] Comment on above: Performed By: #### U RCX #### [facility] [address] [address] [address] Caitlin Martinez Erythrocyte distribution width (RBC) [Ratio] 16.0 % Critically high 11.0-15.0 [facility] Comment on above: Performed By: #### U RCX #### [facility] [address] [address] [address] Caitlin Martinez Hematocrit (Bld) [Volume fraction] 35.7 % Critically low 36.0-48.0 [facility] Comment on above: Performed By: #### U RCX #### [facility] [address] [place] [address] Dr. Caitlin Martinez Hemoglobin (Bld) [Mass/Vol] 10.9 g/dL Critically low 12.0-16.0 [facility] Comment on above: Performed By: #### U RCX #### [facility] [address] [place] [address] Dr. Caitlin Martinez IG # 0.07 10e3/ul Critically high 0.00-0.03 [facility] Comment on above: Performed By: #### U RCX #### [facility] [address] [address] [address] Caitlin Martinez IG % 1.0 % Critically high 0.0-0.5 [facility] Comment on above: Performed By: #### U RCX #### [facility] [address] [place] [address] Dr. Caitlin Martinez LYMPH # 2.3 103/ul Normal 1.2-3.8 [facility] Comment on above: Performed By: #### U RCX #### [facility] [address] [place] [address] Dr. Cailtin Martinez Lymphocytes/100 WBC (Bld) 31.4 % Normal 20.5-60.0 [facility] Comment on above: Performed By: #### U RCX #### [facility] [address] [place] [address] Dr. Caitlin Martinez MANUAL DIFF REQ NO Normal [facility] Comment on above: Performed By: #### U RCX #### [facility] [address] [address] [address] Caitlin Martinez MCH (RBC) [Entitic mass] 24.8 pg Critically low 26.7-34.0 [facility] Comment on above: Performed By: #### U RCX #### [facility] [address] [place] [address] Dr. Caitlin Martinez MCHC (RBC) [Mass/Vol] 30.5 g/dL Normal 29.9-35.2 [facility] Comment on above: Performed By: #### U RCX #### [facility] [address] [place] [address] Dr. Caitlin Martinez MCV (RBC) [Entitic vol] 81.1 fL Normal 81.0-99.0 [facility] Comment on above: Performed By: #### U RCX #### [facility] [address] [place] [address] Dr. Caitlin Martinez MONO # 0.5 103/ul Normal 0.3-0.8 [facility] Comment on above: Performed By: #### U RCX #### [facility] [address] [place] [address] Dr. Caitlin Martinez Monocytes/100 WBC (Bld) 6.6 % Normal 1.7-12.0 [facility] Comment on above: Performed By: #### U RCX #### [facility] [address] [place] [address] Dr. Caitlin Martinez NEUT # 4.1 103/ul Normal 1.4-6.5 [facility] Comment on above: Performed By: #### U RCX #### [facility] [address] [place] [address] Dr. Caitlin Martinez Neutrophils/100 WBC (Bld) 55.9 % Normal 43.0-75.0 [facility] Comment on above: Performed By: #### U RCX #### [facility] [address] [place] [address] Dr. Caitlin Martinez Platelet mean volume (Bld) [Entitic vol] 9.4 fL Critically low 9.5-13.5 [facility] Comment on above: Performed By: #### U RCX #### [facility] [address] [address] [address] Caitlin Martinez PLT 369 103/ul Normal 150-450 [facility] Comment on above: Performed By: #### U RCX #### [facility] [address] [address] [address] Caitlin Martinez RBC 4.40 106/ul Normal 4.20-5.40 [facility] Comment on above: Performed By: #### U RCX #### [facility] [address] [address] [address] Caitlin Martinez WBC 7.3 103/ul Normal 4.0-11.0 [facility] Comment on above: Performed By: #### U RCX #### [facility] [address] [address] [address] Caitlin Martinez FREE THYROXINE INDEX T7on FTI 2.20 Normal 1.30-4.50 [facility] Comment on above: Performed By: #### I HORACIO #### [facility] [address] [address] [address] Caitlin Martinez T3U 29.0 % Critically low 30.0-39.0 [facility] Comment on above: Performed By: #### I HORACIO #### [facility] [address] [address] [address] Caitlin Martinez T4 [Mass/Vol] 7.60 ug/dL Normal 4.80-13.90 [facility] Comment on above: Performed By: #### I HORACIO #### [facility] [address] [address] [address] Caitlin Martinez GLYCOHEMOGLOBIN A1Con 2021 ADA RECOMMENDATION SEE BELOW Normal The [facility] Comment on above: Result Comment: ADA RECOMMENDED LIMIT 4.0 - 6.0 ADA THERAPEUTIC TARGET < 7.0 ACTION SUGGESTED > 7.0 Performed By: #### U RCX #### [facility] [address] [address] [address] Caitlin Martinez Glucose [Mass/Vol] 97 mg/dL Normal [facility] Comment on above: Performed By: #### U RCX #### [facility] [address] [address] [address] Caitlin Martinez HbA1c (Bld) [Mass fraction] 5.0 % Normal 4.5-6.2 [facility] Comment on above: Performed By: #### U RCX #### [facility] [address] [address] [address] Caitlin Martinez IRONon 04-18-2022 Iron [Mass/Vol] 35.0 ug/dL Critically low 50.0-170.0 [facility] Comment on above: Performed By: #### I HORACIO #### [facility] [address] [place] [address] Dr. Caitlin Martinez LIPID PROFILEon 04-18-2022 CHOL-HDL RATIO NORM SEE BELOW Normal [facility] Comment on above: Result Comment: 3.3 - 4.4 LOW RISK 4.4 - 7.1 AVERAGE RISK 7.1 - 11.0 MODERATE RISK >11.0 HIGH RISK Performed By: #### I HORACIO #### [facility] [address] [place] [address] Dr. Caitlin Martinez Cholesterol [Mass/Vol] 221 mg/dL Critically high <=200 [facility] Comment on above: Performed By: #### I HORACIO #### [facility] [address] [place] [address] Dr. Caitlin Martinez Cholesterol in HDL [Mass/Vol] 67 mg/dL Critically high 40-60 [facility] Comment on above: Performed By: #### I HORACIO #### [facility] [address] [address] [address] Caitlin Martinez Cholesterol in LDL [Mass/Vol] 142.4 mg/dL Normal [facility] Comment on above: Performed By: #### I HORACIO #### [facility] [address] [place] [address] Dr. Caitlin Martinez Cholesterol.total/Cho lesterol in HDL [Mass ratio] 3.3 {ratio} Normal [facility] Comment on above: Performed By: #### I HORACIO #### [facility] [address] [address] [address] Caitlin Martinez HDL NORMAL > or = 60 mg/dl - LO W CARDIOVASCULAR RISK <40 mg/dl - HIGH CARDIOVASCULAR RISK Normal [facility] Comment on above: Performed By: #### I HORACIO #### [facility] [address] [address] [address] Caitlin Martinez LDL CALC NORMAL SEE BELOW Normal [facility] Comment on above: Result Comment: <100 mg/dl OPTIMAL 100 - 129 mg/dl NEAR OR ABOVE OPTIMAL 130 - 159 mg/dl BORDERLINE HIGH 160 - 189 mg/dl HIGH >190 mg/dl VERY HIGH Performed By: #### I HORACIO #### [facility] [address] [address] [address] Caitlin Martinez Triglyceride [Mass/Vol] 58 mg/dL Normal <=150 [facility] Comment on above: Performed By: #### I HORACIO #### [facility] [address] [address] [address] Caitlin Martinez VLDL CALC 11.6 mg/dL Normal [facility] Comment on above: Performed By: #### I HORACIO #### [facility] [address] [address] [address] Caitlin Martinez PROF 14(COMP METB)on 022 Albumin [Mass/Vol] 3.8 g/dL Normal 3.4-5.0 [facility] Comment on above: Performed By: #### I HORACIO #### [facility] [address] [address] [address] Caitlin Martinez Albumin/Globulin [Mass ratio] 1.1 {ratio} Normal [facility] Comment on above: Performed By: #### I HORACIO #### [facility] [address] [address] [address] Caitlin Martinez ALP [Catalytic activity/Vol] 132 U/L Critically high 46-116 [facility] Comment on above: Performed By: #### I HORACIO #### [facility] [address] [place] [address] Dr. Caitlin Martinez ALT [Catalytic activity/Vol] 55 U/L Normal 14-59 [facility] Comment on above: Performed By: #### I HORACIO #### [facility] [address] [address] [address] Caitlin Martinez Anion gap [Moles/Vol] 12.6 mmol/L Normal [facility] Comment on above: Performed By: #### I HORACIO #### [facility] [address] [address] [address] Caitlin Martinez AST [Catalytic activity/Vol] 27 U/L Normal 15-37 [facility] Comment on above: Performed By: #### I HORACIO #### [facility] [address] [address] [address] Caitlin Martinez Bilirubin [Mass/Vol] 0.6 mg/dL Normal 0.2-1.0 [facility] Comment on above: Performed By: #### I HORACIO #### [facility] [address] [place] [address] Dr. Caitlin Martinez Calcium [Mass/Vol] 9.1 mg/dL Normal 8.5-10.1 [facility] Comment on above: Performed By: #### I HORACIO #### [facility] [address] [address] [address] Caitlin Martinez Chloride [Moles/Vol] 106 mmol/L Normal 98-107 [facility] Comment on above: Performed By: #### I HORACIO #### [facility] [address] [address] [address] Caitlin Martinez CO2 [Moles/Vol] 26.5 mmol/L Normal 21.0-32.0 [facility] Comment on above: Performed By: #### I HORACIO #### [facility] [address] [address] [address] Caitlin Martinez Creatinine [Mass/Vol] 0.63 mg/dL Normal 0.55-1.02 [facility] Comment on above: Performed By: #### I HORACIO #### [facility] [address] [address] [address] Caitlin Martinez EGFR-AF LIBERIAN >60 Normal >=60 [facility] Comment on above: Performed By: #### I HORACIO #### [facility] [address] [place] [address] Dr. Caitlin Martinez EGFR-NON AF LIBERIAN >60 Normal >=60 [facility] Comment on above: Performed By: #### I HORACIO #### [facility] [address] [place] [address] Dr. Caitlin Martinez Globulin (S) [Mass/Vol] 3.6 g/dL Normal [facility] Comment on above: Performed By: #### I HORACIO #### [facility] [address] [address] [address] Caitlin Martinez Glucose [Mass/Vol] 98 mg/dL Normal 74-106 [facility] Comment on above: Performed By: #### I HORACIO #### [facility] [address] [place] [address] Dr. Caitlin Martinez Potassium [Moles/Vol] 4.1 mmol/L Normal 3.5-5.1 [facility] Comment on above: Performed By: #### I HORACIO #### [facility] [address] [place] [address] Dr. Caitlin Martinez Protein [Mass/Vol] 7.4 g/dL Normal 6.4-8.2 [facility] Comment on above: Performed By: #### I HORACIO #### [facility] [address] [place] [address] Dr. Caitlin Martinez Sodium [Moles/Vol] 141 mmol/L Normal 136-145 [facility] Comment on above: Performed By: #### I HORACIO #### [facility] [address] [place] [address] Dr. Caitlin Martinez Urea nitrogen [Mass/Vol] 9.0 mg/dL Normal 7.0-18.0 [facility] Comment on above: Performed By: #### I HORACIO #### [facility] [address] [place] [address] Dr. Caitlin Martinez Urea nitrogen/Creatinine [Mass ratio] 14.3 mg/mg Normal [facility] Comment on above: Performed By: #### I HORACIO #### [facility] [address] [place] [address] Dr. Caitlin Martinez TSHon 04-18-2022 TSH 1.349 uIU/mL Normal 0.358-3.740 [facility] Comment on above: Performed By: #### I HORACIO #### [facility] [address] [place] [address] Dr. Caitlin Martinez ANTIBODY ID PANELon 02-15-20 22 ANTIBODY ID PANEL Antibody ID Anti-D Blood Bank Notes most likely due to Rhogam given on 12/01/21 [facility] Comment on above: Performed By: #### D IRCMB, ABID #### [facility] [address] [place] [address] Dr. Caitlin Martinez CTA CHEST WO W CONon 022 CTA CHEST WO W CON EXAM: CTA chest. CLINICAL SYMPTOMS: Female, 26 years, CHEST PAIN, UNSPECIFIED. COMPARISONS: Chest radiograph, same date. TECHNIQUE: Helical CTA of the pulmonary arteries was performed following rapid injection of intravenous contrast with coronal and sagittal MIP images following the administration of IV contrast. Dose reduction techniques were achieved by using automated exposure control and/or adjustment of mA and/or KVP according to patient size and/or use of iterative reconstruction technique. CTA: There are no filling defects identified in the pulmonary arteries to suggest pulmonary embolism. There is no thoracic aortic dissection or aneurysm identified. The thoracic aorta is normal. CT CHEST: The lung parenchyma is normal. There is no pleural effusion. No mediastinal or hilar adenopathy. Heart size is normal. The visualized portion of the abdomen is unremarkable. IMPRESSION: No evidence for pulmonary embolism or aortic dissection. The lungs are clear. Electronically authenticated by: GAGANDEEP WHEELER Date: 2022-02-10 22:55 Normal [facility] CBC AUTO DIFFon 02-10-2022 BASO # 0.1 103/ul Normal 0.0-0.1 [facility] Comment on above: Performed By: #### C BC #### [facility] [address] [place] [address] Dr. Caitlin Martinez Basophils/100 WBC (Bld) 0.4 % Normal 0.2-2.0 [facility] Comment on above: Performed By: #### C BC #### [facility] [address] [place] [address] Dr. Caitlin Martinez EO # 0.5 103/ul Normal 0.0-0.7 [facility] Comment on above: Performed By: #### C BC #### [facility] [address] [place] [address] Dr. Caitlin Martinez Eosinophils/100 WBC (Bld) 4.2 % Normal 0.9-7.0 [facility] Comment on above: Performed By: #### C BC #### [facility] [address] [place] [address] Dr. Caitlin Martinez Erythrocyte distribution width (RBC) [Ratio] 14.7 % Normal 11.0-15.0 [facility] Comment on above: Performed By: #### C BC #### [facility] [address] [place] [address] Dr. Caitlin Martinez Hematocrit (Bld) [Volume fraction] 31.1 % Critically low 36.0-48.0 [facility] Comment on above: Performed By: #### C BC #### [facility] [address] [place] [address] Dr. Caitlin Martinez Hemoglobin (Bld) [Mass/Vol] 9.6 g/dL Critically low 12.0-16.0 [facility] Comment on above: Performed By: #### C BC #### [facility] [address] [place] [address] Dr. Caitlin Martinez IG # 0.28 10e3/ul Critically high 0.00-0.03 [facility] Comment on above: Performed By: #### C BC #### [facility] [address] [place] [address] Dr. Caitlin Martinez IG % 2.3 % Critically high 0.0-0.5 [facility] Comment on above: Performed By: #### C BC #### [facility] [address] [place] [address] Dr. Caitlin Martinez LYMPH # 3.3 103/ul Normal 1.2-3.8 [facility] Comment on above: Performed By: #### C BC #### [facility] [address] [place] [address] Dr. Caitlin Martinez Lymphocytes/100 WBC (Bld) 26.9 % Normal 20.5-60.0 [facility] Comment on above: Performed By: #### C BC #### [facility] [address] [place] [address] Dr. Caitlin Martinez MANUAL DIFF REQ NO Normal [facility] Comment on above: Performed By: #### C BC #### [facility] [address] [place] [address] Dr. Caitlin Martinez MCH (RBC) [Entitic mass] 26.2 pg Critically low 26.7-34.0 [facility] Comment on above: Performed By: #### C BC #### [facility] [address] [place] [address] Dr. Caitlin Martinez MCHC (RBC) [Mass/Vol] 30.9 g/dL Normal 29.9-35.2 [facility] Comment on above: Performed By: #### C BC #### [facility] [address] [place] [address] Dr. Caitlin Martinez MCV (RBC) [Entitic vol] 84.7 fL Normal 81.0-99.0 [facility] Comment on above: Performed By: #### C BC #### [facility] [address] [place] [address] Dr. Caitlin Martinez MONO # 1.1 103/ul Critically high 0.3-0.8 [facility] Comment on above: Performed By: #### C BC #### [facility] [address] [place] [address] Dr. Caitlin Martinez Monocytes/100 WBC (Bld) 8.7 % Normal 1.7-12.0 [facility] Comment on above: Performed By: #### C BC #### [facility] [address] [place] [address] Dr. Caitlin Martinez NEUT # 7.0 103/ul Critically high 1.4-6.5 [facility] Comment on above: Performed By: #### C BC #### [facility] [address] [place] [address] Dr. Caitlin Martinez Neutrophils/100 WBC (Bld) 57.5 % Normal 43.0-75.0 [facility] Comment on above: Performed By: #### C BC #### [facility] [address] [place] [address] Dr. Caitlin Martinez Platelet mean volume (Bld) [Entitic vol] 9.1 fL Critically low 9.5-13.5 [facility] Comment on above: Performed By: #### C BC #### [facility] [address] [place] [address] Dr. Caitlin Martinez PLT 437 103/ul Normal 150-450 [facility] Comment on above: Performed By: #### C BC #### [facility] [address] [place] [address] Dr. Caitlin Martinez RBC 3.67 106/ul Critically low 4.20-5.40 [facility] Comment on above: Performed By: #### C BC #### [facility] [address] [place] [address] Dr. Caitlin Martinez WBC 12.3 103/ul Critically high 4.0-11.0 [facility] Comment on above: Performed By: #### C BC #### [facility] [address] [place] [address] Dr. Caitlin Martinez Covid-19 PCR ([facility])on 01-16 SARS-CoV-2 (COVID-19) RNA JONATAN+probe Ql (Unsp spec) Not detected Normal NOT DETECTED [facility] Comment on above: Result Comment: When diagnostic testing is negative, the possibility of a false negative should be considered in the context of a patient's recent exposures and the presence of clinical signs and symptoms consistent with SARS-CoV-2. This test is not yet approved or cleared by the [place] FDA. When there are no FDA-approved or cleared tests available, and other criteria are met, FDA can make tests available under an emergency access mechanism called an Emergency Use Authorization (EUA). The EUA for this test is supported by the [employer] Engine [employer] Manager of Health and Human Service's declaration that circumstances exist to justify the emergency use of in vitro diagnostics for the detection and/or diagnosis of the virus that causes COVID-19. This EUA will remain in effect for the duration of the COVID-19 declaration justifying emergency of IVDs, unless it is terminated or revoked by the FDA (after which the test may no longer be used). Performed By: #### C VDTBH #### [facility] [address] [place] [address] Dr. Caitlin Martinez PROF 14(COMP METB)on 022 Albumin [Mass/Vol] 2.1 g/dL Critically low 3.4-5.0 [facility] Comment on above: Performed By: #### U RCX #### [facility] [address] [place] [address] Dr. Caitlin Martinez Albumin/Globulin [Mass ratio] 0.5 {ratio} Normal [facility] Comment on above: Performed By: #### U RCX #### [facility] [address] [place] [address] Dr. Caitlin Martinez ALP [Catalytic activity/Vol] 202 U/L Critically high 46-116 [facility] Comment on above: Performed By: #### U RCX #### [facility] [address] [place] [address] Dr. Caitlin Martinez ALT [Catalytic activity/Vol] 20 U/L Normal 14-59 [facility] Comment on above: Performed By: #### U RCX #### [facility] [address] [place] [address] Dr. Caitlin Martinez Anion gap [Moles/Vol] 11.6 mmol/L Normal [facility] Comment on above: Performed By: #### U RCX #### [facility] [address] [place] [address] Dr. Caitlin Martinez AST [Catalytic activity/Vol] 17 U/L Normal 15-37 [facility] Comment on above: Performed By: #### U RCX #### [facility] [address] [place] [address] Dr. Caitlin Martinez Bilirubin [Mass/Vol] 0.3 mg/dL Normal 0.2-1.0 [facility] Comment on above: Performed By: #### U RCX #### [facility] [address] [address] [address] Caitlin Martinez Calcium [Mass/Vol] 9.2 mg/dL Normal 8.5-10.1 [facility] Comment on above: Performed By: #### U RCX #### [facility] [address] [address] [address] Caitlin Martinez Chloride [Moles/Vol] 104 mmol/L Normal 98-107 [facility] Comment on above: Performed By: #### U RCX #### [facility] [address] [address] [address] Caitlin Martinez CO2 [Moles/Vol] 26.9 mmol/L Normal 21.0-32.0 [facility] Comment on above: Performed By: #### U RCX #### [facility] [address] [place] [address] Dr. Caitlin Martinez Creatinine [Mass/Vol] 0.56 mg/dL Normal 0.55-1.02 [facility] Comment on above: Performed By: #### U RCX #### [facility] [address] [address] [address] Caitlin Martinez EGFR-AF LIBERIAN >60 Normal >=60 [facility] Comment on above: Performed By: #### U RCX #### [facility] [address] [place] [address] Dr. Caitlin Martinez EGFR-NON AF LIBERIAN >60 Normal >=60 [facility] Comment on above: Performed By: #### U RCX #### [facility] [address] [address] [address] Caitlin Martinez Globulin (S) [Mass/Vol] 4.4 g/dL Normal [facility] Comment on above: Performed By: #### U RCX #### [facility] [address] [place] [address] Dr. Caitlin Martinez Glucose [Mass/Vol] 108 mg/dL Critically high 74-106 [facility] Comment on above: Performed By: #### U RCX #### [facility] [address] [place] [address] Dr. Caitlin Martinez Potassium [Moles/Vol] 3.5 mmol/L Normal 3.5-5.1 [facility] Comment on above: Performed By: #### U RCX #### [facility] [address] [address] [address] Caitlin Martinez Protein [Mass/Vol] 6.5 g/dL Normal 6.4-8.2 [facility] Comment on above: Performed By: #### U RCX #### [facility] [address] [address] [address] Caitlin Martinez Sodium [Moles/Vol] 139 mmol/L Normal 136-145 [facility] Comment on above: Performed By: #### U RCX #### [facility] [address] [place] [address] Dr. Caitlin Martinez Urea nitrogen [Mass/Vol] 7.0 mg/dL Normal 7.0-18.0 [facility] Comment on above: Performed By: #### U RCX #### [facility] [address] [place] [address] Dr. Caitlin Martinez Urea nitrogen/Creatinine [Mass ratio] 12.5 mg/mg Normal [facility] Comment on above: Performed By: #### U RCX #### [facility] [address] [place] [address] Dr. Caitlin Martinez TROPONIN, HIGH SENSITIVITYon 02-10-2022 HSTROP <4.0 Normal 4.0-51.3 [facility] Comment on above: Result Comment: CUT- OFF POINTS HAVE BEEN ESTABLISHED BASED ON THE FOURTH UNIVERSAL DEFINITIONS OF MYOCARDIAL INFARCTION. THE UPPER REFERENCE LIMIT (URL) OF TROPONIN, DEFINED THE 99TH PERCENTILE OF cTnI DISTRIBUTION IN A REFERENCE POPULATION, HAS BEEN CONFIRMED THE DECISION THRESHOLD FOR VA DIAGNOSIS. Performed By: #### U RCX #### [facility] [address] [place] [address] Dr. Caitlin Martinez CBC AUTO DIFFon 02-09-2022 BASO # 0.1 103/ul Normal 0.0-0.1 [facility] Comment on above: Performed By: #### U RCX #### [facility] [address] [address] [address] Caitlin Martinez Basophils/100 WBC (Bld) 0.6 % Normal 0.2-2.0 [facility] Comment on above: Performed By: #### U RCX #### [facility] [address] [place] [address] Dr. Caitlin Martinez EO # 0.3 103/ul Normal 0.0-0.7 [facility] Comment on above: Performed By: #### U RCX #### [facility] [address] [place] [address] Dr. Caitlin Martinez Eosinophils/100 WBC (Bld) 2.3 % Normal 0.9-7.0 [facility] Comment on above: Performed By: #### U RCX #### [facility] [address] [place] [address] Dr. Caitlin Martinez Erythrocyte distribution width (RBC) [Ratio] 14.6 % Normal 11.0-15.0 [facility] Comment on above: Performed By: #### U RCX #### [facility] [address] [place] [address] Dr. Caitlin Martinez Hematocrit (Bld) [Volume fraction] 28.8 % Critically low 36.0-48.0 [facility] Comment on above: Performed By: #### U RCX #### [facility] [address] [place] [address] Dr. Caitlin Martinez Hemoglobin (Bld) [Mass/Vol] 9.0 g/dL Critically low 12.0-16.0 [facility] Comment on above: Performed By: #### U RCX #### [facility] [address] [place] [address] Dr. Caitlin Martinez IG # 0.20 10e3/ul Critically high 0.00-0.03 [facility] [place] Comment on above: Performed By: #### U RCX #### [facility] [address] [place] [address] Dr. Caitlin Martinez IG % 1.5 % Critically high 0.0-0.5 [facility] Comment on above: Performed By: #### U RCX #### [facility] [address] [address] [address] Caitlin Martinez LYMPH # 3.0 103/ul Normal 1.2-3.8 [facility] Comment on above: Performed By: #### U RCX #### [facility] [address] [address] [address] Caitlin Martinez Lymphocytes/100 WBC (Bld) 22.2 % Normal 20.5-60.0 [facility] Comment on above: Performed By: #### U RCX #### [facility] [address] [address] [address] Caitlin Martinez MANUAL DIFF REQ NO Normal [facility] Comment on above: Performed By: #### U RCX #### [facility] [address] [place] [address] Dr. Caitlin Martinez MCH (RBC) [Entitic mass] 26.2 pg Critically low 26.7-34.0 [facility] Comment on above: Performed By: #### U RCX #### [facility] [address] [place] [address] Dr. Caitlin Martinez MCHC (RBC) [Mass/Vol] 31.3 g/dL Normal 29.9-35.2 [facility] Comment on above: Performed By: #### U RCX #### [facility] [address] [place] [address] Dr. Caitlin Martinez MCV (RBC) [Entitic vol] 83.7 fL Normal 81.0-99.0 [facility] Comment on above: Performed By: #### U RCX #### [facility] [address] [address] [address] Caitlin Martinez MONO # 1.3 103/ul Critically high 0.3-0.8 [facility] Comment on above: Performed By: #### U RCX #### [facility] [address] [place] [address] Dr. Caitlin Martinez Monocytes/100 WBC (Bld) 9.8 % Normal 1.7-12.0 [facility] Comment on above: Performed By: #### U RCX #### [facility] [address] [address] [address] Caitlin Martinez NEUT # 8.5 103/ul Critically high 1.4-6.5 [facility] Comment on above: Performed By: #### U RCX #### [facility] [address] [address] [address] Caitlin Martinez Neutrophils/100 WBC (Bld) 63.6 % Normal 43.0-75.0 [facility] Comment on above: Performed By: #### U RCX #### [facility] [address] [address] [address] Caitlin Martinez Platelet mean volume (Bld) [Entitic vol] 9.1 fL Critically low 9.5-13.5 [facility] Comment on above: Performed By: #### U RCX #### [facility] [address] [place] [address] Dr. Caitlin Martinez PLT 355 103/ul Normal 150-450 [facility] Comment on above: Performed By: #### U RCX #### [facility] [address] [address] [address] Caitlin Martinez RBC 3.44 106/ul Critically low 4.20-5.40 [facility] Comment on above: Performed By: #### U RCX #### [facility] [address] [address] [address] Caitlin Martinez WBC 13.3 103/ul Critically high 4.0-11.0 [facility] Comment on above: Performed By: #### U RCX #### [facility] [address] [place] [address] Dr. Caitlin Martinez SCREENon 02-09-2022 SCREEN Negative Normal [facility] Comment on above: Performed By: #### F ETSCRN #### [facility] [address] [address] [address] Caitlin Martinez CBC AUTO DIFFon 02-08-2022 BASO # 0.1 103/ul Normal 0.0-0.1 [facility] Comment on above: Performed By: #### U RCX #### [facility] [address] [address] [address] Caitlin Martinez Basophils/100 WBC (Bld) 0.4 % Normal 0.2-2.0 [facility] Comment on above: Performed By: #### U RCX #### [facility] [address] [address] [address] Caitlin Martinez EO # 0.3 103/ul Normal 0.0-0.7 [facility] Comment on above: Performed By: #### U RCX #### [facility] [address] [place] [address] Dr. Caitlin Martinez Eosinophils/100 WBC (Bld) 2.6 % Normal 0.9-7.0 [facility] Comment on above: Performed By: #### U RCX #### [facility] [address] [place] [address] Dr. Caitlin Martinez Erythrocyte distribution width (RBC) [Ratio] 14.7 % Normal 11.0-15.0 [facility] Comment on above: Performed By: #### U RCX #### [facility] [address] [place] [address] Dr. Caitlin Martinez Hematocrit (Bld) [Volume fraction] 30.6 % Critically low 36.0-48.0 [facility] Comment on above: Performed By: #### U RCX #### [facility] [address] [place] [address] Dr. Caitlin Martinez Hemoglobin (Bld) [Mass/Vol] 9.7 g/dL Critically low 12.0-16.0 [facility] Comment on above: Performed By: #### U RCX #### [facility] [address] [place] [address] Dr. Caitlin Martinez IG # 0.15 10e3/ul Critically high 0.00-0.03 [facility] Comment on above: Performed By: #### U RCX #### [facility] [address] [place] [address] Dr. Caitlin Martinez IG % 1.3 % Critically high 0.0-0.5 [facility] Comment on above: Performed By: #### U RCX #### [facility] [address] [address] [address] Caitlin Martinez LYMPH # 2.8 103/ul Normal 1.2-3.8 [facility] Comment on above: Performed By: #### U RCX #### [facility] [address] [address] [address] Caitlin Martinez Lymphocytes/100 WBC (Bld) 24.8 % Normal 20.5-60.0 [facility] Comment on above: Performed By: #### U RCX #### [facility] [address] [address] [address] Caitlin Martinez MANUAL DIFF REQ NO Normal [facility] Comment on above: Performed By: #### U RCX #### [facility] [address] [place] [address] Dr. Caitlin Martinez MCH (RBC) [Entitic mass] 26.6 pg Critically low 26.7-34.0 [facility] Comment on above: Performed By: #### U RCX #### [facility] [address] [address] [address] Caitlin Martinez MCHC (RBC) [Mass/Vol] 31.7 g/dL Normal 29.9-35.2 [facility] Comment on above: Performed By: #### U RCX #### [facility] [address] [place] [address] Dr. Caitlin Martinez MCV (RBC) [Entitic vol] 83.8 fL Normal 81.0-99.0 [facility] Comment on above: Performed By: #### U RCX #### [facility] [address] [address] [address] Caitlin Martinez MONO # 1.0 103/ul Critically high 0.3-0.8 [facility] Comment on above: Performed By: #### U RCX #### [facility] [address] [address] [address] Caitlin Martinez Monocytes/100 WBC (Bld) 8.7 % Normal 1.7-12.0 [facility] Comment on above: Performed By: #### U RCX #### [facility] [address] [address] [address] Caitlin Martinez NEUT # 7.0 103/ul Critically high 1.4-6.5 [facility] Comment on above: Performed By: #### U RCX #### [facility] [address] [address] [address] Caitlin Martinez Neutrophils/100 WBC (Bld) 62.2 % Normal 43.0-75.0 [facility] Comment on above: Performed By: #### U RCX #### [facility] [address] [address] [address] Caitlin Martinez Platelet mean volume (Bld) [Entitic vol] 9.0 fL Critically low 9.5-13.5 [facility] Comment on above: Performed By: #### U RCX #### [facility] [address] [place] [address] Dr. Caitlin Martinez PLT 373 103/ul Normal 150-450 [facility] Comment on above: Performed By: #### U RCX #### [facility] [address] [address] [address] Caitlin Martinez RBC 3.65 106/ul Critically low 4.20-5.40 [facility] Comment on above: Performed By: #### U RCX #### [facility] [address] [place] [address] Dr. Caitlin Martinez WBC 11.3 103/ul Critically high 4.0-11.0 [facility] Comment on above: Performed By: #### U RCX #### [facility] [address] [place] [address] Dr. Caitlin Martinez Covid-19 PCR ([facility])on 01-16 SARS-CoV-2 (COVID-19) RNA JONATAN+probe Ql (Unsp spec) Not detected Normal NOT DETECTED [facility] Comment on above: Result Comment: When diagnostic testing is negative, the possibility of a false negative should be considered in the context of a patient's recent exposures and the presence of clinical signs and symptoms consistent with SARS-CoV-2. This test is not yet approved or cleared by the [place] FDA. When there are no FDA-approved or cleared tests available, and other criteria are met, FDA can make tests available under an emergency access mechanism called an Emergency Use Authorization (EUA). The EUA for this test is supported by the [employer] Manager of Health and Human Service's declaration that circumstances exist to justify the emergency use of in vitro diagnostics for the detection and/or diagnosis of the virus that causes COVID-19. This EUA will remain in effect for the duration of the COVID-19 declaration justifying emergency of IVDs, unless it is terminated or revoked by the FDA (after which the test may no longer be used). Performed By: #### C BC #### [facility] [address] [place] [address] Dr. Caitlin Martinez DIRECT COOMBSon 02-08-2022 DIRECT EDWINA Negative Normal [facility] Comment on above: Performed By: #### D IRCMB, ABID #### [facility] [address] [place] [address] Dr. Caitlin Martinez DRUG SCREEN RAPID (URINE)on 02-08-2022 AMP Negative Normal NEGATIVE [facility] Comment on above: Performed By: #### C BC #### [facility] [address] [place] [address] Dr. Caitlin Martinez BAR Negative Normal NEGATIVE [facility] Comment on above: Performed By: #### C BC #### [facility] [address] [place] [address] Dr. Caitlin Martinez BUP Negative Normal NEGATIVE [facility] Comment on above: Performed By: #### C BC #### [facility] [address] [place] [address] Dr. Caitlin Martinez BZO Negative Normal NEGATIVE [facility] Comment on above: Performed By: #### C BC #### [facility] [address] [place] [address] Dr. Caitlin Martinez JEANNA Negative Normal NEGATIVE [facility] Comment on above: Performed By: #### C BC #### [facility] [address] [place] [address] Dr. Caitlin Martinez CUT-OFFS SEE BELOW Normal [facility] Comment on above: Result Comment: AMP (Amphetamine): 500ng/mL, BAR (Barbituates): 200 ng/mL, BZO (Benzodiazepines): 150 ng/mL, BUP (Buprenorphine): 10 ng/mL, JEANNA (Cocaine): 150 ng/mL, mAMP (Methamphetamine): 500 ng/mL, MTD (Methadone): 200 ng/mL, OPI (Opiates): 100 ng/mL, OXY (Oxycodone): 100 ng/mL, PCP (Phencyclidine): 25 ng/mL, PPX (Propoxyphene): 300 ng/mL, THC (Cannabinoids): 50 ng/mL, TCA (Trycyclic Antidepressants): 300 ng/mL Performed By: #### C BC #### [facility] [address] [place] [address] Dr. Caitlin Martinez DRUG CUT HEADER DRUG CLASS TEST SYSTEM CUT-OFF CONCENTRATIONS ARE FOLLOWS: Normal [facility] Comment on above: Performed By: #### C BC #### [facility] [address] [place] [address] Dr. Caitlin Martinez mAMP Negative Normal NEGATIVE [facility] Comment on above: Performed By: #### C BC #### [facility] [address] [place] [address] Dr. Caitlin Martinez MTD Negative Normal NEGATIVE [facility] Comment on above: Performed By: #### C BC #### [facility] [address] [place] [address] Dr. Caitlin Martinez OPI Negative Normal NEGATIVE [facility] Comment on above: Performed By: #### C BC #### [facility] [address] [place] [address] Dr. Caitlin Martinez OXY Negative Normal NEGATIVE [facility] Comment on above: Performed By: #### C BC #### [facility] [address] [place] [address] Dr. Caitlin Martinez PCP Negative Normal NEGATIVE [facility] Comment on above: Performed By: #### C BC #### [facility] [address] [place] [address] Dr. Caitlin Martinez PPX Negative Normal NEGATIVE [facility] Comment on above: Performed By: #### C BC #### [facility] [address] [place] [address] Dr. Caitlin Martinez TCA Negative Normal NEGATIVE [facility] Comment on above: Performed By: #### C BC #### [facility] [address] [place] [address] Dr. Caitlin Martinez THC Negative Normal NEGATIVE [facility] Comment on above: Performed By: #### C BC #### [facility] [address] [place] [address] Dr. Caitlin Martinez TYPE AND SCREENon 02-08-2022 TYPE AND SCREEN Negative Normal [facility] Comment on above: Performed By: #### I HORACIO #### [facility] [address] [place] [address] Dr. Caitlin Martinez US PREG BIOPHY W NON STRESSo n 02-05-2022 US PREG BIOPHY W NON STRESS EXAMINATION: US PREG BIOPHY W NON STRESS HISTORY: Patient currently COMPARISON: Ultrasound the biophysical 01/16/2022 TECHNIQUE: Ultrasound biophysical profile was performed. FINDINGS: BREATHING MOVEMENTS: 2.0 GROSS BODY MOVEMENTS: 2.0 TONE: 2.0 QUALITATIVE AMNIOTIC FLUID VOLUME: 2.0 PRESENTATION: CEPHALIC HEART RATE: 126.8 bpm bpm. AMNIOTIC FLUID VOLUME: 19.0 cm GESTATIONAL AGE: 38 weeks 4 days CONCLUSION: Total biophysical profile score 8.0. Electronically authenticated by: DAVID BLACKMON Date: 2022-02-05 16:28 Normal [facility] AMNISUREon 01-25-2022 AMNISURE Negative Normal NEGATIVE [facility] Comment on above: Performed By: #### A MNI #### [facility] [address] [place] [address] Dr. Caitlin Martinez CULTURE URINEon 01-25-2022 CULTURE URINE Culture Observations : No growth Normal [facility] Comment on above: Performed By: #### U RCX #### [facility] [address] [place] [address] Dr. Caitlin Martinez UA (CLEAN/CATCH) HOSPITALITY JOB TITLES/MICRO I F IND.on 01-25-2022 Bilirubin Ql (U) Negative Normal NEGATIVE [facility] Comment on above: Performed By: #### C VDTBH #### [facility] [address] [place] [address] Dr. Caitlin Martinez Clarity (U) SL CLOUDY Abnormal CLEAR [facility] Comment on above: Performed By: #### C VDTBH #### [facility] [address] [place] [address] Dr. Caitlin Martinez Color (U) LT. YELLOW Normal YELLOW [facility] Comment on above: Performed By: #### C VDTBH #### [facility] [address] [place] [address] Dr. Caitlin Martinez Glucose Ql (U) Negative Normal NEGATIVE [facility] Comment on above: Performed By: #### C VDTBH #### [facility] [address] [place] [address] Dr. Caitlin Martinez Hemoglobin Ql (U) TRACE-INTACT Abnormal NEGATIVE [facility] Comment on above: Performed By: #### C VDTBH #### [facility] [address] [place] [address] Dr. Caitlin Martinez Ketones Ql (U) Negative Normal NEGATIVE [facility] Comment on above: Performed By: #### C VDTBH #### [facility] [address] [place] [address] Dr. Caitlin Martinez LEUKOCYTES TRACE Abnormal NEGATIVE [facility] Comment on above: Performed By: #### C VDTBH #### [facility] [address] [place] [address] Dr. Caitlin Martinez Nitrite Ql (U) Negative Normal NEGATIVE [facility] Comment on above: Performed By: #### C VDTBH #### [facility] [address] [place] [address] Dr. Caitlin Martinez pH (U) 6.5 [pH] Normal 5-9 [facility] Comment on above: Performed By: #### C VDTBH #### [facility] [address] [place] [address] Dr. Caitlin Martinez SPEC GRAVITY 1.020 Normal 1.005-<=1.025 [facility] Comment on above: Performed By: #### C VDTBH #### [facility] [address] [place] [address] Dr. Caitlin Martinez UA PROTEIN Negative Normal NEGATIVE/ TRACE [facility] Comment on above: Performed By: #### C VDTBH #### [facility] [address] [place] [address] Dr. Caitlin Martinez UR MICRO IND INDICATED Normal [facility] Comment on above: Performed By: #### C VDTBH #### [facility] [address] [place] [address] Dr. Caitlin Martinez Urobilinogen Qn (U) 0.2 {Barbara'U}/dL Normal 0.2 - 1. 0 [facility] Comment on above: Performed By: #### C VDTBH #### [facility] [address] [place] [address] Dr. Caitlin Martinez URINE MICROSCOPIC ONLYon BACTERIA MODERATE Abnormal NONE SEEN [facility] Comment on above: Performed By: #### C VDTBH #### [facility] [address] [place] [address] Dr. Caitlin Martinez Bacteria identified Cx Nom (U) INDICATED Normal [facility] Comment on above: Performed By: #### C VDTBH #### [facility] [address] [place] [address] Dr. Caitlin Martinez CAST NONE SEEN Normal NONE SEEN [facility] Comment on above: Performed By: #### C VDTBH #### [facility] [address] [place] [address] Dr. Caitlin Martinez Crystals LM Nom (Urine sed) NONE SEEN Normal NONE SEEN [facility] Comment on above: Performed By: #### C VDTBH #### [facility] [address] [place] [address] Dr. Caitlin Martinez Epithelial cells LM Ql (Urine sed) FEW Abnormal NONE SEEN /RARE [facility] Comment on above: Performed By: #### C VDTBH #### [facility] [address] [place] [address] Dr. Caitlin Martinez MUCOUS TRACE Abnormal NONE SEEN [facility] Comment on above: Performed By: #### C VDTBH #### [facility] [address] [place] [address] Dr. Caitlin Martinez RBC 2-5 Abnormal 0-2 [facility] Comment on above: Performed By: #### C VDTBH #### [facility] [address] [place] [address] Dr. Caitlin Martinez WBC 0-2 Abnormal NONE SEEN [facility] Comment on above: Performed By: #### C VDTBH #### [facility] [address] [place] [address] Dr. Caitlin Martinez AMYLASEon 01-16-2022 Amylase [Catalytic activity/Vol] 49 U/L Normal 25-115 [facility] Comment on above: Performed By: #### C VDTBH #### [facility] [address] [place] [address] Dr. Caitlin Martinez BUNon 01-16-2022 Urea nitrogen [Mass/Vol] 3.0 mg/dL Critically low 7.0-18.0 [facility] Comment on above: Performed By: #### C BC #### [facility] [address] [place] [address] Dr. Caitlin Martinez CBC AUTO DIFFon 01-16-2022 BASO # 0.1 103/ul Normal 0.0-0.1 [facility] Comment on above: Performed By: #### U RCX #### [facility] [address] [place] [address] Dr. Caitlin Martinez Basophils/100 WBC (Bld) 0.6 % Normal 0.2-2.0 [facility] Comment on above: Performed By: #### U RCX #### [facility] [address] [place] [address] Dr. Caitlin Martinez EO # 0.3 103/ul Normal 0.0-0.7 [facility] Comment on above: Performed By: #### U RCX #### [facility] [address] [place] [address] Dr. Caitlin Martinez Eosinophils/100 WBC (Bld) 2.6 % Normal 0.9-7.0 [facility] Comment on above: Performed By: #### U RCX #### [facility] [address] [address] [address] Caitlin Martinez Erythrocyte distribution width (RBC) [Ratio] 14.4 % Normal 11.0-15.0 [facility] Comment on above: Performed By: #### U RCX #### [facility] [address] [place] [address] Dr. Caitlin Martinez Hematocrit (Bld) [Volume fraction] 28.4 % Critically low 36.0-48.0 [facility] Comment on above: Performed By: #### U RCX #### [facility] [address] [place] [address] Dr. Caitlin Martinez Hemoglobin (Bld) [Mass/Vol] 9.0 g/dL Critically low 12.0-16.0 [facility] Comment on above: Performed By: #### U RCX #### [facility] [address] [place] [address] Dr. Caitlin Martinez IG # 0.11 10e3/ul Critically high 0.00-0.03 [facility] Comment on above: Performed By: #### U RCX #### [facility] [address] [place] [address] Dr. Caitlin Martinez IG % 1.1 % Critically high 0.0-0.5 [facility] Comment on above: Performed By: #### U RCX #### [facility] [address] [place] [address] Dr. Caitlin Martinez LYMPH # 2.2 103/ul Normal 1.2-3.8 [facility] Comment on above: Performed By: #### U RCX #### [facility] [address] [place] [address] Dr. Caitlin Martinez Lymphocytes/100 WBC (Bld) 21.0 % Normal 20.5-60.0 [facility] Comment on above: Performed By: #### U RCX #### [facility] [address] [place] [address] Dr. Caitlin Martinez MANUAL DIFF REQ NO Normal [facility] Comment on above: Performed By: #### U RCX #### [facility] [address] [address] [address] Caitlin Martinez MCH (RBC) [Entitic mass] 28.2 pg Normal 26.7-34.0 [facility] Comment on above: Performed By: #### U RCX #### [facility] [address] [place] [address] Dr. Caitlin Martinez MCHC (RBC) [Mass/Vol] 31.7 g/dL Normal 29.9-35.2 [facility] Comment on above: Performed By: #### U RCX #### [facility] [address] [address] [address] Caitlin Martinez MCV (RBC) [Entitic vol] 89.0 fL Normal 81.0-99.0 [facility] Comment on above: Performed By: #### U RCX #### [facility] [address] [place] [address] Dr. Caitlin Martinez MONO # 0.9 103/ul Critically high 0.3-0.8 [facility] Comment on above: Performed By: #### U RCX #### [facility] [address] [place] [address] Dr. Caitlin Martinez Monocytes/100 WBC (Bld) 8.9 % Normal 1.7-12.0 [facility] Comment on above: Performed By: #### U RCX #### [facility] [address] [place] [address] Dr. Caitlin Martinez NEUT # 6.8 103/ul Critically high 1.4-6.5 [facility] Comment on above: Performed By: #### U RCX #### [facility] [address] [address] [address] Ciatlin aMrtinez Neutrophils/100 WBC (Bld) 65.8 % Normal 43.0-75.0 [facility] Comment on above: Performed By: #### U RCX #### [facility] [address] [place] [address] Dr. Caitlin Martinez Platelet mean volume (Bld) [Entitic vol] 8.6 fL Critically low 9.5-13.5 [facility] Comment on above: Performed By: #### U RCX #### [facility] Laboratory [address] [place] [address] Dr. Caitlin Martinez PLT 322 103/ul Normal 150-450 [facility] Comment on above: Performed By: #### U RCX #### [facility] [address] [address] [address] Caitlin Martinez RBC 3.19 106/ul Critically low 4.20-5.40 [facility] Comment on above: Performed By: #### U RCX #### [facility] [address] [address] [address] Caitlin Martinez WBC 10.3 103/ul Normal 4.0-11.0 [facility] Comment on above: Performed By: #### U RCX #### [facility] [address] [place] [address] Dr. Caitlin Martinez CREATININEon 01-16-2022 Creatinine [Mass/Vol] 0.55 mg/dL Normal 0.55-1.02 [facility] Comment on above: Performed By: #### C VDTBH #### [facility] [address] [place] [address] Dr. Caitlin Martinez EGFR-AF LIBERIAN >60 Normal >=60 [facility] Comment on above: Performed By: #### C VDTBH #### [facility] [address] [place] [address] Dr. Caitlin Martinez EGFR-NON AF LIBERIAN >60 Normal >=60 [facility] Comment on above: Performed By: #### C VDTBH #### [facility] [address] [place] [address] Dr. Caitlin Martinez ELECTROLYTESon 01-16-2022 Anion gap [Moles/Vol] 13.6 mmol/L Normal [facility] Comment on above: Performed By: #### C VDTBH #### [facility] [address] [place] [address] Dr. Caitlin Martinez Chloride [Moles/Vol] 106 mmol/L Normal 98-107 [facility] Comment on above: Performed By: #### C VDTBH #### [facility] [address] [place] [address] Dr. Caitlin Martinez CO2 [Moles/Vol] 22.9 mmol/L Normal 21.0-32.0 [facility] Comment on above: Performed By: #### C VDTBH #### [facility] [address] [place] [address] Dr. Caitlin Martinez Potassium [Moles/Vol] 3.5 mmol/L Normal 3.5-5.1 [facility] Comment on above: Performed By: #### C VDTBH #### [facility] [address] [place] [address] Dr. Caitlin Martinez Sodium [Moles/Vol] 139 mmol/L Normal 136-145 [facility] Comment on above: Performed By: #### C VDTBH #### [facility] [address] [place] [address] Dr. Caitlin Martinez LIPASEon 01-16-2022 Lipase [Catalytic activity/Vol] 66.0 U/L Critically low 73.0-393.0 [facility] Comment on above: Performed By: #### C BC #### [facility] [address] [place] [address] Dr. Catilin Martinez SGOTon 01-16-2022 AST [Catalytic activity/Vol] 12 U/L Critically low 15-37 [facility] Comment on above: Performed By: #### C VDTBH #### [facility] [address] [place] [address] Dr. Caitlin Martinez SGPTon 01-16-2022 ALT [Catalytic activity/Vol] 9 U/L Critically low 14-59 [facility] Comment on above: Performed By: #### C VDTBH #### [facility] [address] [place] [address] Dr. Caitlin Martinez CBC AUTO DIFFon 01-15-2022 BASO # 0.1 103/ul Normal 0.0-0.1 [facility] Comment on above: Performed By: #### C VDTBH #### [facility] [address] [place] [address] Dr. Caitlin Martinez Basophils/100 WBC (Bld) 0.4 % Normal 0.2-2.0 [facility] Comment on above: Performed By: #### C VDTBH #### [facility] [address] [place] [address] Dr. Caitlin Martinez EO # 0.2 103/ul Normal 0.0-0.7 [facility] Comment on above: Performed By: #### C VDTBH #### [facility] [address] [place] [address] Dr. Caitlin Martinez Eosinophils/100 WBC (Bld) 1.4 % Normal 0.9-7.0 [facility] Comment on above: Performed By: #### C VDTBH #### [facility] [address] [place] [address] Dr. Caitlin Martinez Erythrocyte distribution width (RBC) [Ratio] 14.1 % Normal 11.0-15.0 [facility] Comment on above: Performed By: #### C VDTBH #### [facility] [address] [place] [address] Dr. Caitlin Martinez Hematocrit (Bld) [Volume fraction] 28.4 % Critically low 36.0-48.0 [facility] Comment on above: Performed By: #### C VDTBH #### [facility] [address] [place] [address] Dr. Caitlin Martinez Hemoglobin (Bld) [Mass/Vol] 9.0 g/dL Critically low 12.0-16.0 [facility] Comment on above: Performed By: #### C VDTBH #### [facility] [address] [place] [address] Dr. Caitlin Martinez IG # 0.18 10e3/ul Critically high 0.00-0.03 [facility] Comment on above: Performed By: #### C VDTBH #### [facility] [address] [place] [address] Dr. Caitlin Martinez IG % 1.3 % Critically high 0.0-0.5 [facility] Comment on above: Performed By: #### C VDTBH #### [facility] [address] [address] [address] Caitlin Martinez LYMPH # 2.4 103/ul Normal 1.2-3.8 [facility] Comment on above: Performed By: #### C VDTBH #### [facility] [address] [address] [address] Caitlin Martinez Lymphocytes/100 WBC (Bld) 16.8 % Critically low 20.5-60.0 [facility] Comment on above: Performed By: #### C VDTBH #### [facility] [address] [address] [address] Caitlin Martinez MANUAL DIFF REQ NO Normal [facility] Comment on above: Performed By: #### C VDTBH #### [facility] [address] [place] [address] Dr. Caitlin Martinez MCH (RBC) [Entitic mass] 27.9 pg Normal 26.7-34.0 [facility] Comment on above: Performed By: #### C VDTBH #### [facility] [address] [address] [address] Caitlin Martinez MCHC (RBC) [Mass/Vol] 31.7 g/dL Normal 29.9-35.2 [facility] Comment on above: Performed By: #### C VDTBH #### [facility] [address] [address] [address] Caitlin Martinez MCV (RBC) [Entitic vol] 87.9 fL Normal 81.0-99.0 [facility] Comment on above: Performed By: #### C VDTBH #### [facility] [address] [address] [address] Caitlin Martinez MONO # 0.9 103/ul Critically high 0.3-0.8 [facility] Comment on above: Performed By: #### C VDTBH #### [facility] [address] [address] [address] Caitlin Martinez Monocytes/100 WBC (Bld) 6.7 % Normal 1.7-12.0 [facility] Comment on above: Performed By: #### C VDTBH #### [facility] [address] [address] [address] Caitlin Martinez NEUT # 10.3 103/ul Critically high 1.4-6.5 [facility] Comment on above: Performed By: #### C VDTBH #### [facility] [address] [address] [address] Caitlin Martinez Neutrophils/100 WBC (Bld) 73.4 % Normal 43.0-75.0 [facility] Comment on above: Performed By: #### C VDTBH #### [facility] [address] [place] [address] Dr. Caitlin Martinez Platelet mean volume (Bld) [Entitic vol] 9.0 fL Critically low 9.5-13.5 [facility] Comment on above: Performed By: #### C VDTBH #### [facility] [address] [place] [address] Dr. Caitlin Martinez PLT 318 103/ul Normal 150-450 [facility] Comment on above: Performed By: #### C VDTBH #### [facility] [address] [place] [address] Dr. Catilin Martinez RBC 3.23 106/ul Critically low 4.20-5.40 [facility] Comment on above: Performed By: #### C VDTBH #### [facility] [address] [place] [address] Dr. Caitlin Martinez WBC 14.0 103/ul Critically high 4.0-11.0 [facility] Comment on above: Performed By: #### C VDTBH #### [facility] [address] [place] [address] ABD/PELVIS WO CONon 01-15 CT ABD/PELVIS WO CON EXAMINATION: CT ABD/PELVIS WO CON HISTORY: UNSPECIFIED ABDOMINAL PAIN , left lower quadrant pain COMPARISON: No relevant comparison available. TECHNIQUE: Axial, Coronal, and Sagittal images were created without IV contrast. Dose reduction techniques were achieved by using automated exposure control and/or adjustment of mA and/or kV according to patient size and/or use of iterative reconstruction technique. FINDINGS: LUNG BASES: No visible pulmonary or pleural disease. LIVER: No enlargement, atrophy, suspicious density, or significant focal lesion. BILIARY: Tiny stone within noninflamed gallbladder. PANCREAS: No lesion, fluid collection, or abnormal duct dilatation. SPLEEN: No enlargement or focal lesion. ADRENALS: No mass or enlargement. KIDNEYS: No mass, obstruction, or calcification. BOWEL/MESENTERY: No visible mass, obstruction, or bowel wall thickening. Normal appendix. AORTA/VASCULAR: No aneurysm or dissection. RETROPERITONEUM: No mass or adenopathy. LYMPH NODES: No adenopathy. URINARY BLADDER: No visible focal wall thickening, lesion, or calculus. PELVIC ORGANS: Patient is 35 weeks ; no appreciable abnormality. ABDOMINAL WALL: No mass or hernia. BONES: No bony lesion or fracture. OTHER: Negative. IMPRESSION: 1. Patient's 35 weeks . 2. No acute or suspicious findings to account for patient's left lower quadrant symptoms. 3. Normal appendix. Electronically authenticated by: DAVID BLACKMON Date: 2022-01-15 16:31 Normal [facility] CULTURE URINEon 01-15-2022 CULTURE URINE Culture Observations : LIGHT GROWTH OF MIXED GENITAL COSME. NO POTENTIAL PATHOGENS SEEN. Normal [facility] Comment on above: Performed By: #### U RCX #### [facility] [address] [place] [address] Dr. Caitlin Martinez UA (CLEAN/CATCH) HOSPITALITY JOB TITLES/MICRO I F IND.on 01-15-2022 Bilirubin Ql (U) Negative Normal NEGATIVE [facility] Comment on above: Performed By: #### C BC #### [facility] [address] [place] [address] Dr. Caitlin Martinez Clarity (U) CLEAR Normal CLEAR [facility] Comment on above: Performed By: #### C BC #### [facility] [address] [place] [address] Dr. Caitlin Martinez Color (U) LT. YELLOW Normal YELLOW [facility] Comment on above: Performed By: #### C BC #### [facility] [address] [place] [address] Dr. Caitlin Martinez Glucose Ql (U) Negative Normal NEGATIVE [facility] Comment on above: Performed By: #### C BC #### [facility] [address] [place] [address] Dr. Caitlin Mratinez Hemoglobin Ql (U) Negative Normal NEGATIVE [facility] Comment on above: Performed By: #### C BC #### [facility] [address] [place] [address] Dr. Caitlin Martinez Ketones Ql (U) Negative Normal NEGATIVE [facility] Comment on above: Performed By: #### C BC #### [facility] [address] [place] [address] Dr. Caitlin Martinez LEUKOCYTES TRACE Abnormal NEGATIVE [facility] Comment on above: Performed By: #### C BC #### [facility] [address] [place] [address] Dr. Caitlin Martinez Nitrite Ql (U) Negative Normal NEGATIVE [facility] Comment on above: Performed By: #### C BC #### [facility] [address] [place] [address] Dr. Caitlin Martinez pH (U) 7.0 [pH] Normal 5-9 [facility] Comment on above: Performed By: #### C BC #### [facility] [address] [place] [address] Dr. Caitlin Martinez SPEC GRAVITY 1.010 Normal 1.005-<=1.025 [facility] Comment on above: Performed By: #### C BC #### [facility] [address] [place] [address] Dr. Caitlin Martinez UA PROTEIN Negative Normal NEGATIVE/ TRACE [facility] Comment on above: Performed By: #### C BC #### [facility] [address] [place] [address] Dr. Caitlin Martinez UR MICRO IND INDICATED Normal [facility] Comment on above: Performed By: #### C BC #### [facility] [address] [place] [address] Dr. Caitlin Martinez Urobilinogen Qn (U) 0.2 {Barbara'U}/dL Normal 0.2 - 1. 0 [facility] Comment on above: Performed By: #### C BC #### [facility] [address] [place] [address] Dr. Caitlin Martinez URINE MICROSCOPIC ONLYon BACTERIA MODERATE Abnormal NONE SEEN [facility] Comment on above: Performed By: #### C BC #### [facility] [address] [place] [address] Dr. Caitlin Martinez Bacteria identified Cx Nom (U) INDICATED Normal [facility] Comment on above: Performed By: #### C BC #### [facility] [address] [place] [address] Dr. Caitlin Martinez CAST NONE SEEN Normal NONE SEEN [facility] Comment on above: Performed By: #### C BC #### [facility] [address] [place] [address] Dr. Caitlin Martinez Crystals LM Nom (Urine sed) NONE SEEN Normal NONE SEEN [facility] Comment on above: Performed By: #### C BC #### [facility] [address] [place] [address] Dr. Caitlin Martinez Epithelial cells LM Ql (Urine sed) MODERATE Abnormal NONE SEEN /RARE [facility] Comment on above: Performed By: #### C BC #### [facility] [address] [place] [address] Dr. Caitlin Martinez MUCOUS NONE SEEN Normal NONE SEEN [facility] Comment on above: Performed By: #### C BC #### [facility] [address] [place] [address] Dr. Caitlin Martinez RBC NONE SEEN Abnormal 0-2 [facility] Comment on above: Performed By: #### C BC #### [facility] [address] [place] [address] Dr. Caitlin Martinez WBC 2-5 Abnormal NONE SEEN [facility] Comment on above: Performed By: #### C BC #### [facility] [address] [place] [address] Dr. Caitlin Martinez US APPENDIXon 01-15-2022 US APPENDIX EXAM: US APPENDIX HISTORY: pain , contractions COMPARISON: None. TECHNIQUE: Transabdominal ultrasound evaluation of right lower quadrant. FINDINGS: No identifiable appendix, abnormally dilated bowel, free fluid, or enlarged lymph nodes. IMPRESSION: 1. The appendix could not be identified within the right lower quadrant. 2. No secondary suspicious findings to suggest appendicitis. Electronically authenticated by: DAVID BLACKMON Date: 2022-01-15 14:14 Normal [facility] US PREG GROWTHon 01-15-2022 US PREG GROWTH EXAMINATION: US PREG GROWTH HISTORY: pain COMPARISON: No relevant comparison available. FINDINGS: Heart Rate: 144.4 bpm Number: 1.0 Position: CEPHALIC Amniotic Fluid Volume: 11.9 cm Maximum Vertical Pocket: 5.2 cm BIOMETRY: BPD: 8.6 cm cm; 34 weeks 5 days; 32% HC: 32.4 cmcm; 36 weeks 5 days; 46% AC: 31.1 cm cm; 35 weeks 0 days; 42% FL: 6.5 cm cm; 33 weeks 4 days; 6 % EFW: 2511.7 grams; 27% FL/AC: 20.9 FL/BPD: 75.6 HC/AC: 1.0 GESTATIONAL AGE: Age by EDC: 35 weeks 4 days NOVA by EDC: 02/15/2022 Age by US: 35 weeks, 0 days NOVA by US: 02/19/2022 IMPRESSION: 1. Single live intrauterine with growth detailed above. 2. No suspicious findings to account for patient's symptoms. Electronically authenticated by: DAVID BLACKMON Date: 2022-01-15 10:59 Normal [facility] US PREG PLACENTAon US PREG PLACENTA EXAMINATION: US PREG PLACENTA HISTORY: pain ; left lower quadrant pain and contractions COMPARISON: Ultrasound anatomy 09/28/2021 FINDINGS: PLACENTA: Left lateral-anterior. No evidence of abruption or subchorionic hematoma. CERVIX LENGTH: Not measured. HEART RATE: 144 bpm Presentation: Cephalic OTHER: None. IMPRESSION: 1. Single live intrauterine . 2. No placental abruption or subchorionic hematoma. Electronically authenticated by: DAVID BLACKMON Date: 2022-01-15 10:57 Normal [facility] UA (CLEAN/CATCH) HOSPITALITY JOB TITLES/MICRO I F IND.on 12-29-2021 Bilirubin Ql (U) Negative Normal NEGATIVE [facility] Comment on above: Performed By: #### C BC #### [facility] [address] [place], [place] [id number] Dr. Caitlin Martinez Clarity (U) CLEAR Normal CLEAR [facility] Comment on above: Performed By: #### C BC #### [facility] [address] [place] [address] Dr. Caitlin Martinez Color (U) LT. YELLOW Normal YELLOW [facility] Comment on above: Performed By: #### C BC #### [facility] [address] [place] [address] Dr. Caitlin Martinez Glucose Ql (U) Negative Normal NEGATIVE [facility] Comment on above: Performed By: #### C BC #### [facility] [address] [place] [address] Dr. Caitlin Martinez Hemoglobin Ql (U) Negative Normal NEGATIVE [facility] Comment on above: Performed By: #### C BC #### [facility] [address] [place] [address] Dr. Caitlin Martinez Ketones Ql (U) Negative Normal NEGATIVE [facility] Comment on above: Performed By: #### C BC #### [facility] [address] [place] [address] Dr. Caitlin Martinez LEUKOCYTES Negative Normal NEGATIVE [facility] Comment on above: Performed By: #### C BC #### [facility] [address] [place] [address] Dr. Caitlin Martinez Nitrite Ql (U) Negative Normal NEGATIVE [facility] Comment on above: Performed By: #### C BC #### [facility] [address] [place] [address] Dr. Caitlin Martinez pH (U) 6.5 [pH] Normal 5-9 [facility] Comment on above: Performed By: #### C BC #### [facility] [address] [place] [address] Dr. Caitlin Martinez SPEC GRAVITY 1.020 Normal 1.005-<=1.025 [facility] Comment on above: Performed By: #### C BC #### [facility] [address] [place] [address] Dr. Caitlin Martinez UA PROTEIN Negative Normal NEGATIVE/ TRACE [facility] Comment on above: Performed By: #### C BC #### [facility] [address] [place] [address] Dr. Caitlin Martinez UR MICRO IND NOT INDICATED Normal [facility] Comment on above: Performed By: #### C BC #### [facility] [address] [place] [address] Dr. Caitlin Martinez Urobilinogen Qn (U) 1.0 {Barbara'U}/dL Normal 0.2 - 1. 0 [facility] Comment on above: Performed By: #### C BC #### [facility] [address] [place] [address] Dr. Caitlin Martinez US PREG CERVICAL LENGTHon US PREG CERVICAL LENGTH EXAMINATION: US PREG CERVICAL LENGTH HISTORY: Patient currently COMPARISON: No relevant comparison available. FINDINGS: position: Cephalic presentation, longitudinal lie Heart rate: 144 bpm Cervix: Closed, 3.2 cm. The cervix is stable with fundal pressure and Valsalva measuring 3.1 and 3.0 cm respectively IMPRESSION: Closed cervix measuring 3.2 cm in length Electronically authenticated by: KIRK OATES Date: 2021-12-29 15:53 Normal [facility] UA (CLEAN/CATCH) HOSPITALITY JOB TITLES/MICRO I F IND.on 12-18-2021 Bilirubin Ql (U) Negative Normal NEGATIVE [facility] Comment on above: Performed By: #### C BC #### [facility] [address] [place] [address] Dr. Caitlin Martinez Clarity (U) CLEAR Normal CLEAR [facility] Comment on above: Performed By: #### C BC #### [facility] [address] [place] [address] Dr. Caitlin Martinez Color (U) YELLOW Normal YELLOW [facility] Comment on above: Performed By: #### C BC #### [facility] [address] [place] [address] Dr. Caitlin Martinez Glucose Ql (U) Negative Normal NEGATIVE [facility] Comment on above: Performed By: #### C BC #### [facility] [address] [place] [address] Dr. Caitlin Martinez Hemoglobin Ql (U) Negative Normal NEGATIVE [facility] Comment on above: Performed By: #### C BC #### [facility] [address] [place] [address] Dr. Caitlin Martinez Ketones Ql (U) TRACE Abnormal NEGATIVE [facility] Comment on above: Performed By: #### C BC #### [facility] [address] [place] [address] Dr. Caitlin Martinez LEUKOCYTES Negative Normal NEGATIVE [facility] Comment on above: Performed By: #### C BC #### [facility] [address] [place] [address] Dr. Caitlin Martinez Nitrite Ql (U) Negative Normal NEGATIVE [facility] Comment on above: Performed By: #### C BC #### [facility] [address] [place] [address] Dr. Caitlin Martinez pH (U) 6.0 [pH] Normal 5-9 [facility] Comment on above: Performed By: #### C BC #### [facility] [address] [place] [address] Dr. Caitlin Martinez SPEC GRAVITY 1.025 Normal 1.005-<=1.025 [facility] Comment on above: Performed By: #### C BC #### [facility] [address] [place] [address] Dr. Caitlin Martinez UA PROTEIN Negative Normal NEGATIVE/ TRACE [facility] Comment on above: Performed By: #### C BC #### [facility] [address] [place] [address] Dr. Caitlin Martinez UR MICRO IND NOT INDICATED Normal [facility] Comment on above: Performed By: #### C BC #### [facility] [address] [place] [address] Dr. Caitlin Martinez Urobilinogen Qn (U) 4 {Barbara'U}/dL Abnormal 0.2 - 1.0 [facility] Comment on above: Performed By: #### C BC #### [facility] [address] [place] [address] Dr. Caitlin Martinez RHOGAMon 11-28-2021 RHOGAM Status Information Issued Quantity 1 Product ID Rh Immune Globulin Lot Number [id number] Issue Date/Time [id number] Normal [facility] Comment on above: Performed By: #### I HORACIO #### [facility] [address] [place] [address] Dr. Caitlin Martinez TYPE AND SCREENon 11-27-2021 TYPE AND SCREEN Negative Normal [facility] Comment on above: Performed By: #### T NS #### [facility] [address] [place] [address] Dr. Caitlin Martinez CULTURE URINEon 11-23-2021 CULTURE URINE Culture Observations : No growth Normal [facility] Comment on above: Performed By: #### I HORACIO #### [facility] [address] [place] [address] Dr. Caitlin Martinez UA (CLEAN/CATCH) HOSPITALITY JOB TITLES/MICRO I F IND.on 11-23-2021 Bilirubin Ql (U) Negative Normal NEGATIVE [facility] Comment on above: Performed By: #### U RCX #### [facility] [address] [place] [address] Dr. Caitlin Martinez Clarity (U) CLEAR Normal CLEAR [facility] Comment on above: Performed By: #### U RCX #### [facility] [address] [place] [address] Dr. Caitlin Martinez Color (U) LT. YELLOW Normal YELLOW [facility] Comment on above: Performed By: #### U RCX #### [facility] [address] [place] [address] Dr. Caitlin Martinez Glucose Ql (U) Negative Normal NEGATIVE [facility] Comment on above: Performed By: #### U RCX #### [facility] [address] [place] [address] Dr. Caitlin Martinez Hemoglobin Ql (U) Negative Normal NEGATIVE [facility] Comment on above: Performed By: #### U RCX #### [facility] [address] [place] [address] Dr. Caitlin Martinez Ketones Ql (U) Negative Normal NEGATIVE [facility] Comment on above: Performed By: #### U RCX #### [facility] [address] [address] [address] Caitlin Martinez LEUKOCYTES SMALL Abnormal NEGATIVE [facility] Comment on above: Performed By: #### U RCX #### [facility] [address] [address] [address] Caitlin Martinez Nitrite Ql (U) Negative Normal NEGATIVE [facility] Comment on above: Performed By: #### U RCX #### [facility] [address] [place] [address] Dr. Caitlin Martinez pH (U) 6.5 [pH] Normal 5-9 [facility] Comment on above: Performed By: #### U RCX #### [facility] [address] [place] [address] Dr. Caitlin Martinez SPEC GRAVITY 1.010 Normal 1.005-<=1.025 [facility] Comment on above: Performed By: #### U RCX #### [facility] [address] [place] [address] Dr. Caitlin Martinez UA PROTEIN Negative Normal NEGATIVE/ TRACE [facility] Comment on above: Performed By: #### U RCX #### [facility] [address] [place] [address] Dr. Caitlin Martinez UR MICRO IND INDICATED Normal [facility] Comment on above: Performed By: #### U RCX #### [facility] [address] [place] [address] Dr. Caitlin Martinez Urobilinogen Qn (U) 0.2 {Barbara'U}/dL Normal 0.2 - 1. 0 [facility] Comment on above: Performed By: #### U RCX #### [facility] [address] [place] [address] Dr. Caitlin Martinez URINE MICROSCOPIC ONLYon BACTERIA TRACE Abnormal NONE SEEN [facility] Comment on above: Performed By: #### U RCX #### [facility] [address] [place] [address] Dr. Caitlin Martinez Bacteria identified Cx Nom (U) INDICATED Normal [facility] Comment on above: Performed By: #### U RCX #### [facility] [address] [address] [address] Caitlin Martinez CAST SEEN Abnormal NONE SEEN [facility] Comment on above: Performed By: #### U RCX #### [facility] [address] [address] [address] Caitlin Martinez Crystals LM Nom (Urine sed) SEEN Abnormal NONE SEEN [facility] Comment on above: Performed By: #### U RCX #### [facility] [address] [place] [address] Dr. Caitlin Martinez Epithelial cells LM Ql (Urine sed) RARE Normal NONE SEEN /RARE [facility] Comment on above: Performed By: #### U RCX #### [facility] [address] [place] [address] Dr. Caitlin Martinez MUCOUS TRACE Abnormal NONE SEEN [facility] Comment on above: Performed By: #### U RCX #### [facility] [address] [place] [address] Dr. Caitlin Martinez RBC 0-2 Normal 0-2 [facility] Comment on above: Performed By: #### U RCX #### [facility] [address] [place] [address] Dr. Caitlin Martinez WBC 2-5 Abnormal NONE SEEN [facility] Comment on above: Performed By: #### U RCX #### [facility] [address] [place] [address] Dr. Caitlin Martinez GLUCOSE - 1HRon 11-06-2021 Glucose [Mass/Vol] 131 mg/dL Critically high 74-106 [facility] Comment on above: Performed By: #### I HORACIO #### [facility] [address] [place] [address] Dr. Caitlin Martinez HEMOGRAM AND PLATELon 2021 Hematocrit (Bld) [Volume fraction] 34.2 % Critically low 36.0-48.0 [facility] Comment on above: Performed By: #### C BC #### [facility] [address] [place] [address] Dr. Caitlin Martinez Hemoglobin (Bld) [Mass/Vol] 11.3 g/dL Critically low 12.0-16.0 [facility] Comment on above: Performed By: #### C BC #### [facility] [address] [place] [address] Dr. Caitlin Martinez MCH (RBC) [Entitic mass] 31.7 pg Normal 26.7-34.0 [facility] Comment on above: Performed By: #### C BC #### [facility] [address] [place] [address] Dr. Caitlin Martinez MCHC (RBC) [Mass/Vol] 33.0 g/dL Normal 29.9-35.2 [facility] Comment on above: Performed By: #### C BC #### [facility] [address] [place] [address] Dr. Caitlin Martinez MCV (RBC) [Entitic vol] 96.1 fL Normal 81.0-99.0 [facility] Comment on above: Performed By: #### C BC #### [facility] [address] [place] [address] Dr. Caitlin Martinez PLT 372 103/ul Normal 150-450 [facility] Comment on above: Performed By: #### C BC #### [facility] [address] [place] [address] Dr. Caitlin Martinez RBC 3.56 106/ul Critically low 4.20-5.40 [facility] Comment on above: Performed By: #### C BC #### [facility] [address] [place] [address] Dr. Caitlin Martinez WBC 10.1 103/ul Normal 4.0-11.0 [facility] Comment on above: Performed By: #### C BC #### [facility] [address] [place] [address] Dr. Caitlin Martinez CHLAMYDIA/GONOCOCCUS JONATAN ( AB/URINE/PAPon 10-31-2021 Chlamydia trachomatis, JONATAN Negative Normal Negative [facility] Comment on above: Performed By: #### C BC #### [facility] [address] [place] [address] Dr. Caitlin Martinez Neisseria gonorrhoeae, JONATAN Negative Normal Negative [facility] Comment on above: Performed By: #### C BC #### [facility] [address] [address] [address] Catilin Martinez VAGINITIS/VAGINOSIS DNA PROB Paramjit 10-29-2021 Selena species Negative Normal Negative [facility] Comment on above: Performed By: #### U RCX #### [facility] [address] [address] [address] Caitlin Martinez Gardnerella vaginalis Negative Normal Negative [facility] Comment on above: Performed By: #### U RCX #### [facility] [address] [address] [address] Caitlin Martinez Trichomonas vaginalis Negative Normal Negative [facility] Comment on above: Performed By: #### U RCX #### [facility] [address] [place] [address] Dr. Caitlin Martinez US PREG INCOMPLETE ANATOMYon 10-26-2021 US PREG INCOMPLETE ANATOMY EXAMINATION: US PREG INCOMPLETE ANATOMY HISTORY: screening COMPARISON: Ultrasound anatomy 09/28/2021 FINDINGS: Heart rate: 135 bpm Presentation: Cephalic Anatomy: Spine, lateral ventricles, cerebellum, and orbits evaluated; no appreciable abnormality. Gestational age: 24 weeks, 0 days NOVA: 02/15/2022 IMPRESSION: 1. Single live intrauterine . 2. Adequate visualization of the spine and intracranial structures; no appreciable abnormality. Electronically authenticated by: DAVID BLACKMON Date: 2021-10-26 12:05 Normal [facility] CBC W MANUAL DIFFon 10-25-19 22 ATYPICAL LYMPH # Normal [facility] Comment on above: Performed By: #### U RCX #### [facility] [address] [place] [address] Dr. Caitlin Martinez ATYPICAL LYMPH % Normal [facility] Comment on above: Performed By: #### U RCX #### [facility] [address] [place] [address] Dr. Caitlin Martinez BAND # 0.1 103/ul Normal 0.0-0.3 [facility] Comment on above: Performed By: #### U RCX #### [facility] [address] [place] [address] Dr. Caitlin Martinez BAND % 1 % Normal 0-5 [facility] Comment on above: Performed By: #### U RCX #### [facility] [address] [place] [address] Dr. Caitlin Martinez BASOM # 0.00 103/ul Normal 0.00-0.10 [facility] Comment on above: Performed By: #### U RCX #### [facility] [address] [place] [address] Dr. Caitlin Martinez BASOM % 0.0 % Critically low 0.2-2.0 [facility] Comment on above: Performed By: #### U RCX #### [facility] [address] [place] [address] Dr. Caitlin Martinez BLAST # Normal [facility] Comment on above: Performed By: #### U RCX #### [facility] [address] [place] [address] Dr. Caitlin Martinez BLAST % Normal [facility] Comment on above: Performed By: #### U RCX #### [facility] [address] [place] [address] Dr. Caitlin Martinez CORRECTED WBC Normal 4.0-11.0 [facility] Comment on above: Performed By: #### U RCX #### [facility] [address] [place] [address] Dr. Caitlin Martinez EOS # 0.12 103/ul Normal 0.00-0.70 [facility] Comment on above: Performed By: #### U RCX #### [facility] [address] [place] [address] Dr. Caitlin Martinez EOS% 1.0 % Normal 0.9-7.0 [facility] Comment on above: Performed By: #### U RCX #### [facility] [address] [place] [address] Dr. Caitlin Martinez HCT 31.5 % Critically low 36.0-48.0 [facility] Comment on above: Performed By: #### U RCX #### [facility] [address] [place] [address] Dr. Caitlin Martinez HGB 10.5 g/dl Critically low 12.0-16.0 [facility] Comment on above: Performed By: #### U RCX #### [facility] [address] [place] [address] Dr. Caitlin Martinez LYMPHM # 0.37 103/ul Critically low 1.20-3.80 [facility] Comment on above: Performed By: #### U RCX #### [facility] [address] [place] [address] Dr. Caitlin Martinez LYMPHM% 3.0 % Critically low 20.5-60.0 [facility] Comment on above: Performed By: #### U RCX #### [facility] [address] [place] [address] Dr. Caitlin Martinez MCH 31.8 pg Normal 26.7-34.0 [facility] Comment on above: Performed By: #### U RCX #### [facility] [address] [place] [address] Dr. Caitlin Martinez MCHC 33.3 g/dl Normal 29.9-35.2 [facility] Comment on above: Performed By: #### U RCX #### [facility] [address] [place] [address] Dr. Caitlin Martinez MCV 95.5 fL Normal 81.0-99.0 [facility] Comment on above: Performed By: #### U RCX #### [facility] [address] [place] [address] Dr. Caitlin Martinez METAMYELOCYTE # Normal [facility] Comment on above: Performed By: #### U RCX #### [facility] [address] [place] [address] Dr. Caitlin Martinez METAMYELOCYTE % Normal [facility] Comment on above: Performed By: #### U RCX #### [facility] [address] [place] [address] Dr. Caitlin Martinez MONOM# 0.73 103/ul Normal 0.30-0.80 [facility] Comment on above: Performed By: #### U RCX #### [facility] [address] [address] [address] Caitlin Martinez MONOM% 6.0 % Normal 1.7-12.0 [facility] Comment on above: Performed By: #### U RCX #### [facility] [address] [address] [address] Caitlin Martinez MPV 9.5 fL Normal 9.5-13.5 [facility] Comment on above: Performed By: #### U RCX #### [facility] [address] [address] [address] Caitlin Martinez MYELOCYTE # Normal [facility] Comment on above: Performed By: #### U RCX #### [facility] [address] [address] [address] Caitlin Martinez MYELOCYTE % Normal [facility] Comment on above: Performed By: #### U RCX #### [facility] [address] [place] [address] Dr. Caitlin Martinez NRBC Normal [facility] Comment on above: Performed By: #### U RCX #### [facility] [address] [address] [address] Caitlin Martinez PLT 275 103/ul Normal 150-450 [facility] Comment on above: Performed By: #### U RCX #### [facility] [address] [place] [address] Dr. Caitlin Martinez RBC 3.30 106/ul Critically low 4.20-5.40 [facility] Comment on above: Performed By: #### U RCX #### [facility] [address] [address] [address] Caitlin Martinez RDW 13.6 % Normal 11.0-15.0 [facility] Comment on above: Performed By: #### U RCX #### [facility] [address] [address] [address] Caitlin Martinez SEG # 10.86 103/ul Critically high 1.40-6.50 [facility] Comment on above: Performed By: #### U RCX #### [facility] [address] [place] [address] Dr. Caitlin Martinez SEG % 89.0 % Critically high 43.0-75.0 [facility] Comment on above: Performed By: #### U RCX #### [facility] [address] [place] [address] Dr. Caitlin Martinez WBC 12.2 103/ul Critically high 4.0-11.0 [facility] Comment on above: Performed By: #### U RCX #### [facility] [address] [place] [address] Dr. Caitlin Martinez ER URINE PROFILEon 2 Bilirubin Ql (U) Negative Normal NEGATIVE [facility] Comment on above: Performed By: #### C VDTBH #### [facility] [address] [place] [address] Dr. Caitlin Martinez Clarity (U) SL CLOUDY Abnormal CLEAR [facility] Comment on above: Performed By: #### C VDTBH #### [facility] [address] [place] [address] Dr. Caitlin Martinez Color (U) YELLOW Normal YELLOW [facility] Comment on above: Performed By: #### C VDTBH #### [facility] [address] [place] [address] Dr. Caitlin PRICE A micrscopic examination will be performed if indicated. Normal [facility] Comment on above: Performed By: #### C VDTBH #### [facility] [address] [place] [address] Dr. Caitlin Martinez Glucose Ql (U) Negative Normal NEGATIVE [facility] Comment on above: Performed By: #### C VDTBH #### [facility] [address] [place] [address] Dr. Caitlin Martinez Hemoglobin Ql (U) Negative Normal NEGATIVE [facility] Comment on above: Performed By: #### C VDTBH #### [facility] [address] [place] [address] Dr. Caitlin Martinez Ketones Ql (U) >=80 Abnormal NEGATIVE [facility] Comment on above: Performed By: #### C VDTBH #### [facility] [address] [place] [address] Dr. Caitlin Martinez LEUKOCYTES Negative Normal NEGATIVE [facility] Comment on above: Performed By: #### C VDTBH #### [facility] [address] [place] [address] Dr. Caitlin Martinez Nitrite Ql (U) Negative Normal NEGATIVE [facility] Comment on above: Performed By: #### C VDTBH #### [facility] [address] [place] [address] Dr. Caitlin Martinez pH (U) 6.0 [pH] Normal 5-9 [facility] Comment on above: Performed By: #### C VDTBH #### [facility] [address] [place] [address] Dr. Caitlin Martinez SPEC GRAVITY 1.020 Normal 1.005-<=1.025 [facility] Comment on above: Performed By: #### C VDTBH #### [facility] [address] [place] [address] Dr. Caitlin Martinez UA PROTEIN Negative Normal NEGATIVE/ TRACE [facility] Comment on above: Performed By: #### C VDTBH #### [facility] [address] [place] [address] Dr. Caitlin Martinez UR MICRO IND NOT INDICATED Normal [facility] Comment on above: Performed By: #### C VDTBH #### [facility] [address] [place] [address] Dr. Caitlin Martinez Urobilinogen Qn (U) 1.0 {Barbara'U}/dL Normal 0.2 - 1. 0 [facility] Comment on above: Performed By: #### C VDTBH #### [facility] [address] [place] [address] Dr. Caitlin Martinez INFLUENZA A AND B AGon 10-[facility] Normal [facility] Comment on above: Result Comment: Nega tive for Flu B protein antigen. Infection due to Flu B cannot be ruled out. Flu B antigen in the sample may be below the detection limit of the test. Performed By: #### C VDTBH #### [facility] [address] [address] [address] Caitlin Martinez INFLUENZA A AG Positive Abnormal NEGATIVE SEE COMMENT [facility] Comment on above: Performed By: #### C VDTBH #### [facility] [address] [address] [address] Caitlin Martinez INFLUENZA B AG Negative Normal NEGATIVE SEE COMMENT [facility] Comment on above: Performed By: #### C VDTBH #### [facility] [address] [place] [address] Dr. Caitlin Martinez INFLUPOSH SEE BELOW Normal [facility] Comment on above: Result Comment: NOTE : Live attenuated influenzae vaccine viruses can cause a positive result for a rapid influenza diagnostic test if administered up to 7 days prior to rapid testing. Performed By: #### C VDTBH #### [facility] [address] [place] [address] Dr. Caitlin Martinez INTERNAL CONTROLS Within Normal Limits Normal Wi thin Normal Limits [facility] Comment on above: Performed By: #### C VDTBH #### [facility] [address] [place] [address] Dr. Caitlin Martinez PROF CHEM 8 (BAS METB)on Anion gap [Moles/Vol] 14.4 mmol/L Normal [facility] Comment on above: Performed By: #### D IRCMB, ABID #### [facility] [address] [place] [address] Dr. Caitlin Martinez Calcium [Mass/Vol] 8.4 mg/dL Critically low 8.5-10.1 [facility] Comment on above: Performed By: #### D IRCMB, ABID #### [facility] [address] [place] [address] Dr. Caitlin Martinez Chloride [Moles/Vol] 101 mmol/L Normal 98-107 [facility] Comment on above: Performed By: #### D IRCMB, ABID #### [facility] [address] [place] [address] Dr. Caitlin Martinez CO2 [Moles/Vol] 19.7 mmol/L Critically low 21.0-32.0 [facility] Comment on above: Performed By: #### D IRCMB, ABID #### [facility] [address] [address] [address] Caitlin Martinez Creatinine [Mass/Vol] 0.55 mg/dL Normal 0.55-1.02 [facility] Comment on above: Performed By: #### D IRCMB, ABID #### [facility] [address] [address] [address] Caitlin Martinez EGFR-AF LIBERIAN >60 Normal >=60 [facility] Comment on above: Performed By: #### D IRCMB, ABID #### [facility] [address] [place] [address] Dr. Caitlin Martinez EGFR-NON AF LIBERIAN >60 Normal >=60 [facility] Comment on above: Performed By: #### D IRCMB, ABID #### [facility] [address] [place] [address] Dr. Caitlin Martinez Glucose [Mass/Vol] 91 mg/dL Normal 74-106 [facility] Comment on above: Performed By: #### D IRCMB, ABID #### [facility] [address] [place] [address] Dr. Caitlin Martinez Potassium [Moles/Vol] 3.1 mmol/L Critically low 3.5-5.1 [facility] Comment on above: Performed By: #### D IRCMB, ABID #### [facility] [address] [address] [address] Caitlin Martinez Sodium [Moles/Vol] 132 mmol/L Critically low 136-[address] [facility] Comment on above: Performed By: #### D IRCMB, ABID #### [facility] [address] [place] [address] Dr. Caitlin Martinez Urea nitrogen [Mass/Vol] 7.0 mg/dL Normal 7.0-18.0 [facility] Comment on above: Performed By: #### D IRCMB, ABID #### [facility] [address] [address] [address] Caitlin Martinez Urea nitrogen/Creatinine [Mass ratio] 12.7 mg/mg Normal [facility] Comment on above: Performed By: #### D IRCMB, ABID #### [facility] [address] [address] [address] Caitlin Martinez US PREG ANATOMY SINGLEon US PREG ANATOMY SINGLE EXAMINATION: US PREG ANATOMY SINGLE HISTORY: anatomy study COMPARISON: No relevant comparison available. TECHNIQUE: Transabdominal sonographic examination was performed for obstetrical and evaluation. FINDINGS: Number: 1 Heart Rate: 145.0 bpm H.B. /min Amniotic Fluid Volume: Subjectively normal Placental Location: POSTERIOR with lower margin 6.4 cm from os. Cervix Length: 4.2 cm; closed. ANATOMY: Normal Structures - Orbits, midline falx, hard palate, four-chamber heart, RVOT, LVOT, stomach, kidneys, bladder, umbilical cord insertion into abdomen, three-vessel cord, right upper extremity, left upper extremity, right lower extremity, left lower extremity. SUBOPTIMALLY SEEN: Lateral ventricles, cerebellum, posterior fossa, spine ABNORMALITIES: None BIOMETRY: BPD: 4.6 cm 19 weeks 5 days HC: 17.3 cm 19 weeks 6 days AC: 13.8 cm 19 weeks 2 days FL: 2.9 cm 18 weeks 5 days EFW:275.1 grams; 19% FL/AC: 20.7 FL/BPD: 62.7 HC/AC: 1.3 GESTATIONAL AGE: Age by EDC: 20 weeks 0 days NOVA by EDC: 02/15/2022 Age by current US: 19 weeks 3 days NOVA by current US: 02/19/2022 IMPRESSION: 1. Single live intrauterine with growth detailed above. 2. Suboptimal visualization of the head structures and spine due to active fetus and low position within the pelvis. Electronically authenticated by: DAVID BLACKMON Date: 2021-09-28 09:17 Normal [facility] CHEMISTRYOrdered By: SYSTEM SYSTEM on 06-21-2021 [place] [address] m[IU]/mL High 1 - 3 mIU/mL [facility] Remisol XR LUMBAR SPINE 2-3 VIEWS (S TANDARD)on 03-05-2020 XR LUMBAR SPINE 2-3 VIEWS (STANDARD) EXAMINATION: XR LUMBAR SPINE 2-3 VIEWS (STANDARD) 03/05/2020 2:46 pm HISTORY: ORDERING SYSTEM PROVIDED HISTORY: PAIN, TECHNOLOGIST PROVIDED HISTORY: Illness/Other Reason for exam: low back pain Cancer History: n Surgery, RadiationHistory: n Encounter Type: Initial Additional signs and symptoms: fibromyalgia ORDERING SYSTEM PROVIDED DIAGNOSIS CODES: M54.5 Chronic low back pain, unspecified back pain laterality, unspecified whether sciatica present G89.29 Chronic low back pain, unspecified back pain laterality, unspecified whether sciatica present COMPARISON: None FINDINGS: On the lateral view, the lumbar alignment is preserved. The vertebral body heights are grossly preserved. Minimal endplate deformity at L3 is likely related to prominent Schmorl node. No malalignment. No acute compression deformity. The bowel gas pattern is nonobstructive. There is a jjofecpo-[id number]-[id number] amount of stool burden. IMPRESSION: No malalignment. No acute compression deformity. Pgjcnbhg-[id number]-ylpsb amount of stool burden. Q-Bot Workstation ID: [id number] Dictated by: LUBA GARCÍA on [facility] Mar 05, 2020 4:09:51 PM EDT Transcribed by: KELVIN GUADALUPE on [facility] Mar 05, 2020 4:17:18 PM EDT Finalized by: LUBA GARCÍA on [facility] Mar 05, 2020 7:52:11 PM EDT [facility] Comment on above: Order Comment: Injur y/Trauma or Illness?:Illness/Other How long have you had these symptoms (acute/chronic)?:Chronic Reason for exam?:low back pain History of cancer?:n Surgeries, chemotherapy, or radiation?:n Type of Exam?:Initial Additional signs and symptoms?:fibromyalgia XR Lumbar Spine 2-3 Views (S tandard)on 03-05-2020 No malalignment. No acute compression deformity. Fwtxcycl-ok-rzjyv amount of stool burden. Q-Bot Workstation ID: [id number] [facility] EXAMINATION: XR LUMBAR SPINE 2-3 VIEWS (STANDARD) 03/05/2020 2:46 pm HISTORY: ORDERING SYSTEM PROVIDED HISTORY: PAIN, TECHNOLOGIST PROVIDED HISTORY: Illness/Other Reason for exam: low back pain Cancer History: n Surgery, RadiationHistory: n Encounter Type: Initial Additional signs and symptoms: fibromyalgia ORDERING SYSTEM PROVIDED DIAGNOSIS CODES: M54.5 Chronic low back pain, unspecified back pain laterality, unspecified whether sciatica present G89.29 Chronic low back pain, unspecified back pain laterality, unspecified whether sciatica present COMPARISON: None FINDINGS: On the lateral view, the lumbar alignment is preserved. The vertebral body heights are grossly preserved. Minimal endplate deformity at L3 is likely related to prominent Schmorl node. No malalignment. No acute compression deformity. The bowel gas pattern is nonobstructive. There is a xmsmbmid-ra-lbtkc amount of stool burden. [facility] Interface, Rad In Fuji Speechq - 03/05/2020 7:55 PM EDT EXAMINATION: XR LUMBAR SPINE 2-3 VIEWS (STANDARD) 03/05/2020 2:46 pm HISTORY: ORDERING SYSTEM PROVIDED HISTORY: PAIN, TECHNOLOGIST PROVIDED HISTORY: Illness/Other Reason for exam: low back pain Cancer History: n Surgery, RadiationHistory: n Encounter Type: Initial Additional signs and symptoms: fibromyalgia ORDERING SYSTEM PROVIDED DIAGNOSIS CODES: M54.5 Chronic low back pain, unspecified back pain laterality, unspecified whether sciatica present G89.29 Chronic low back pain, unspecified back pain laterality, unspecified whether sciatica present COMPARISON: None FINDINGS: On the lateral view, the lumbar alignment is preserved. The vertebral body heights are grossly preserved. Minimal endplate deformity at L3 is likely related to prominent Schmorl node. No malalignment. No acute compression deformity. The bowel gas pattern is nonobstructive. There is a oekorzuu-oh-lhvwa amount of stool burden. IMPRESSION: No malalignment. No acute compression deformity. Kqtknujs-ei-cxfvr amount of stool burden. Q-Bot Workstation ID: [id number] [facility] CNOVon 10-28-2018 CNOV Office Visit (VASSMN ) SANDY GODINEZ ([id number]) 1995 F Date Time Provider Department 10/28/18 12:00 PM WARREN RODRIGUEZ During your visit today, we recorded the following information about you: Temperature Pulse Respiration Blood pressure 98.8 degrees 101/minute 16/minute 116/64 Weight Height 59 kg 1.626 m Warren Rodriguez MD 10/29/2018 3:03 PM Signed VASCULAR SURGERY INITIAL CONSULT SERVICE DATE: 10/28/2018 SERVICE TIME: 12:44 PM PRIMARY CARE PHYSICIAN: Farrah Garcia MD REFERRING PROVIDER: Farrah Garcia MD [address] [facility] [address] Consult requested for an opinion regarding the evaluation and treatment of the above. My final impression and recommendations will be communicated back to the requesting physician by way of the shared medical record or letter via US mail. CHIEF COMPLAINT/HISTORY OF PRESENT ILLNESS: Chief Complaint: right carotid stenosis History of Present Illness: Sandy Godinez is a 23 year old right handed female 21 weeks presenting for evaluation of right carotid stenosis. Patient recently evaluated in OSH ED after she became dizzy and light headed while walking on 08/22/18 causing her to drop to her knee. Denies loss of consciousness. Denies head or neck trauma, states that she caught herself before hitting the ground. In the ED the physician heard a bruit on the right side of her neck. A carotid duplex was subsequently performed and demonstrated flow velocities to suggest 50-69% stenosis of proximal R ICA. No records or images available for review from OSH. Denies history of stroke, weakness, vision loss, aphasia, or sensory loss. No history of FMD or migraines. Was evaluated for dizziness about a year ago and was diagnosed with vertigo which resolved spontaneously. Denies history of smoking, DM, chest pain, or SOB. No known cardiac disease. No history of neck trauma. PAST MEDICAL/SURGICAL/FAMI LY/SOCIAL HISTORY No past medical history on file. PAST SURGICAL HISTORY Procedure Laterality Date - TONSILLECTOMY HX Bilateral 05/09/2015 No family history on file. SOCIAL HISTORYSocial History Socioeconomic History Marital status: Spouse name: Not on file Number of children: Not on file Years of education: Not on file Highest education level: Not on file Social Needs Financial resource strain: Not on file Food insecurity - worry: Not on file Food insecurity - inability: Not on file Transportation needs - medical: Not on file Transportation needs - non-medical: Not on file Occupational History Not on file Tobacco Use Smoking status: Passive Smoke Exposure - Never Smoker Smokeless tobacco: Never Used Tobacco comment: mom and dad in and outside Substance and Sexual Activity Alcohol use: Not on file Drug use: Not on file Sexual activity: Not on file Other Topics Concerns: Not on file Social History Narrative Not on file MEDICATIONS/ALLERGIES Current Outpatient Medications: VITAMIN PLUS LOW IRON 27 mg iron- 1 mg tab Take 1 tablet by mouth once daily. Disp: Rfl: 11 No current facility-administered medications for this visit. ALLERGIES No Known Allergies REVIEW OF SYSTEMS Constitutional: No weight loss, malaise or fevers. HEENT: Negative for frequent or significant headaches, No changes in hearing or vision, no nose bleeds or other nasal problems Respiratory: Negative for cough, wheezing, or shortness of breath Cardiovascular: Negative for chest pain, leg swelling or palpitations Gatrointestinal: Negative for abdominal discomfort, blood in stools or black stools or change in bowel habits Genitourinary: No history of dysuria, frequency, or incontinence Musculoskeletal: Negative for joint pain or swelling, back pain or muscle pain Endocrine: Negative for cold or heat intolerance, polyuria, polydipsia and goiter Hematology/Lymphatic: Negative for prolonged bleeding, bruising easily or swollen nodes. + bleeding during early Neurologic: No history or headaches, syncope, paralysis, seizures or tremors. + dizziness, + hx of vertigo Integumentary: Negative for lesions, rash, and itching. PHYSICAL EXAM VITALS: BP 116/64 Pulse 101 Temp (Src) 98.8 (Temporal) Resp 16 Ht 5' 4 (1.63m) Wt 130 lb (59.0kg) SpO2 99% BMI 22.30 kg/(m2). General: Alert and oriented, Healthy appearance Integumentary: Normal color, no rash, no lesions. HEENT: EOM, pupils equal, round and reactive. + Right neck bruit Cardiovascular: Normal S1 AND S2, no rubs, murmurs or gallops. No JVD., Pulse regular. Lungs: Normal breath sounds, no wheezes or crackles. Abdomen: , fundal height consistent with 21 wks gestation. Neurological: Normal cognition and motor skills. Gait normal. No weakness or sensory deficit. Vascular: bilateral radial palpable Carotid Duplex 10/28/18 RIGHT SIDE Common carotid artery: Origin: PSV: 183 cm/s. EDV: 23 cm/s. Proximal: PSV: 182 cm/s. EDV: 17 cm/s. Mid: PSV: 191 cm/s. EDV: 23 cm/s. Distal: PSV: 154 cm/s. EDV: 25 cm/s. ? Internal carotid artery: Origin: PSV: 128 cm/s. EDV: 23 cm/s. Proximal: PSV: 123 cm/s. EDV: 17 cm/s. Mid: PSV: 104 cm/s. EDV: 35 cm/s. Distal: PSV: 91 cm/s. EDV: 23 cm/s. RIGHT SIDE ? Internal carotid artery: Elevated velocities noted but no plaque is visualized; likely normal study. Velocities slightly elevated origin to proximal. ? Vertebral artery: Patent and antegrade flow noted. LEFT SIDE ? Internal carotid artery: Elevated velocities noted but no plaque is visualized; likely normal study. Velocities slightly elevated origin to proximal. ? Vertebral artery: Patent and antegrade flow noted. ASSESSMENT 23 year old healthy right handed female with no evidence of carotid disease. Diagnostic tests reviewed for today's visit: Most recent imaging Carotid Duplex PLAN/RECOMMENDATIONS - no indication for intervention - no contraindication to natural child from carotid artery standpoint - no follow up needed unless new issues arise SIGNATURE: Warren Rodriguez MD PATIENT NAME: Sandy Godinez DATE: October 28, 2018 TIME: 12:44 PM Referring Provider: FARRAH GARCIA [[id number]] Allergies As of Date: 10/28/2018 (No Known Allergies) Date Reviewed: 10/28/2018 Reviewed by: Eulalia Mcgovern LPN - Fully Assessed Reason for Visit: New Patient [172] Primary Visit Diagnosis:Spine pain [M54.9] Prescriptions as of 10/28/2018 Sig: VITAMINS PLUS LOW IR* Take 1 tablet by mouth once d* Problem List As Of Date 10/28/2018 Noted Resolved Spine pain [M54.9] INVALID FOR* Medications Discontinued During This Encounter ergocalciferol, vitamin D2, (VITAMIN* 8 ca* 0 02/25/2015 10/28/2018 Route: ORAL Sig: Take 1 capsule by mouth twice a week. With a meal Disc: Course of therapy completed vit,say 74/iron/folic (PREN* 10/28/2018 Class: Historical Med Route: ORAL Sig: Take by mouth once daily. Disc: Discontinued by another Health Care Provider Disposition: Return if symptoms worsen or fail to improve. Follow-up and Disposition History Recorded Encounter Status:Closed by WARREN RODRIGUEZ MD on 10/29/18 Normal [facility] PROGRESSon 10-28-2018 Protein mass conc HNO ID: [id number] Author: Warren Rodriguez Service: ? Author Type: Physician Type: Progress Notes Filed: 10/29/2018 3:03 PM Note Text: VASCULAR SURGERY INITIAL CONSULT SERVICE DATE: 10/28/2018 SERVICE TIME: 12:44 PM PRIMARY CARE PHYSICIAN: Farrah Garcia MD REFERRING PROVIDER: Farrah Garcia MD [address] [facility] [address] Consult requested for an opinion regarding the evaluation and treatment of the above. My final impression and recommendations will be communicated back to the requesting physician by way of the shared medical record or letter via US mail. CHIEF COMPLAINT/HISTORY OF PRESENT ILLNESS: Chief Complaint: right carotid stenosis History of Present Illness: Sandy Godinez is a 23 year old right handed female 21 weeks presenting for evaluation of right carotid stenosis. Patient recently evaluated in OSH ED after she became dizzy and light headed while walking on 08/22/18 causing her to drop to her knee. Denies loss of consciousness. Denies head or neck trauma, states that she caught herself before hitting the ground. In the ED the physician heard a bruit on the right side of her neck. A carotid duplex was subsequently performed and demonstrated flow velocities to suggest 50-69% stenosis of proximal R ICA. No records or images available for review from OSH. Denies history of stroke, weakness, vision loss, aphasia, or sensory loss. No history of FMD or migraines. Was evaluated for dizziness about a year ago and was diagnosed with vertigo which resolved spontaneously. Denies history of smoking, DM, chest pain, or SOB. No known cardiac disease. No history of neck trauma. PAST MEDICAL/SURGICAL/FAMI LY/SOCIAL HISTORY No past medical history on file. PAST SURGICAL HISTORY Procedure Laterality Date - TONSILLECTOMY HX Bilateral 05/09/2015 No family history on file. SOCIAL HISTORYSocial History Socioeconomic History Marital status: Spouse name: Not on file Number of children: Not on file Years of education: Not on file Highest education level: Not on file Social Needs Financial resource strain: Not on file Food insecurity - worry: Not on file Food insecurity - inability: Not on file Transportation needs - medical: Not on file Transportation needs - non-medical: Not on file Occupational History Not on file Tobacco Use Smoking status: Passive Smoke Exposure - Never Smoker Smokeless tobacco: Never Used Tobacco comment: mom and dad in and outside Substance and Sexual Activity Alcohol use: Not on file Drug use: Not on file Sexual activity: Not on file Other Topics Concerns: Not on file Social History Narrative Not on file MEDICATIONS/ALLERGIES Current Outpatient Medications: VITAMIN PLUS LOW IRON 27 mg iron- 1 mg tab Take 1 tablet by mouth once daily. Disp: Rfl: 11 No current facility-administered medications for this visit. ALLERGIES No Known Allergies REVIEW OF SYSTEMS Constitutional: No weight loss, malaise or fevers. HEENT: Negative for frequent or significant headaches, No changes in hearing or vision, no nose bleeds or other nasal problems Respiratory: Negative for cough, wheezing, or shortness of breath Cardiovascular: Negative for chest pain, leg swelling or palpitations Gatrointestinal: Negative for abdominal discomfort, blood in stools or black stools or change in bowel habits Genitourinary: No history of dysuria, frequency, or incontinence Musculoskeletal: Negative for joint pain or swelling, back pain or muscle pain Endocrine: Negative for cold or heat intolerance, polyuria, polydipsia and goiter Hematology/Lymphatic: Negative for prolonged bleeding, bruising easily or swollen nodes. + bleeding during early Neurologic: No history or headaches, syncope, paralysis, seizures or tremors. + dizziness, + hx of vertigo Integumentary: Negative for lesions, rash, and itching. PHYSICAL EXAM VITALS: BP 116/64 Pulse 101 Temp (Src) 98.8 (Temporal) Resp 16 Ht 5' 4 (1.63m) Wt 130 lb (59.0kg) SpO2 99% BMI 22.30 kg/(m2). General: Alert and oriented, Healthy appearance Integumentary: Normal color, no rash, no lesions. HEENT: EOM, pupils equal, round and reactive. + Right neck bruit Cardiovascular: Normal S1 AND S2, no rubs, murmurs or gallops. No JVD., Pulse regular. Lungs: Normal breath sounds, no wheezes or crackles. Abdomen: , fundal height consistent with 21 wks gestation. Neurological: Normal cognition and motor skills. Gait normal. No weakness or sensory deficit. Vascular: bilateral radial palpable Carotid Duplex 10/28/18 RIGHT SIDE Common carotid artery: Origin: PSV: 183 cm/s. EDV: 23 cm/s. Proximal: PSV: 182 cm/s. EDV: 17 cm/s. Mid: PSV: 191 cm/s. EDV: 23 cm/s. Distal: PSV: 154 cm/s. EDV: 25 cm/s. ? Internal carotid artery: Origin: PSV: 128 cm/s. EDV: 23 cm/s. Proximal: PSV: 123 cm/s. EDV: 17 cm/s. Mid: PSV: 104 cm/s. EDV: 35 cm/s. Distal: PSV: 91 cm/s. EDV: 23 cm/s. RIGHT SIDE ? Internal carotid artery: Elevated velocities noted but no plaque is visualized; likely normal study. Velocities slightly elevated origin to proximal. ? Vertebral artery: Patent and antegrade flow noted. LEFT SIDE ? Internal carotid artery: Elevated velocities noted but no plaque is visualized; likely normal study. Velocities slightly elevated origin to proximal. ? Vertebral artery: Patent and antegrade flow noted. ASSESSMENT 23 year old healthy right handed female with no evidence of carotid disease. Diagnostic tests reviewed for today's visit: Most recent imaging Carotid Duplex PLAN/RECOMMENDATIONS - no indication for intervention - no contraindication to natural child from carotid artery standpoint - no follow up needed unless new issues arise SIGNATURE: Warren Rodriguez MD PATIENT NAME: Sandy Godinez DATE: October 28, 2018 TIME: 12:44 PM Normal [facility] Encounters Encounter Date Encounter Type Care Provider Facility Start: 07-02-2023 End: 07-02-2023 ambulatory JOSE MIGUEL BOATENG Not Available Start: 05-02-2023 ambulatory Royer Layne acility:[facility] Start: 07-30-2022 End: 07-31-2022 ambulatory DUARTE VALDERRAMA Facility:[facility] Start: 07-23-2022 End: 07-23-[address] JOSE MIGUEL BOATENG Facility:[facility] Start: 04-18-2022 End: 04-19-2022 ambulatory DUARTE VALDERRAMA Facility:[facility] Start: 02-10-2022 End: 02-11-[address] LYLA SALGADO Facility:[facility] Start: 02-08-2022 End: 02-10-2022 Evaluation and management of inpatient DR JOSE MIGUEL BOATENG Facility:[facility] Start: 02-05-2022 End: 02-05-[address] JOSE MIGUEL BOATENG Facility:[facility] Start: 02-03-2022 End: 02-03-2022 ambulatory KRISTINA VELEZ Facility:[facility] Start: 01-25-2022 End: 01-26-[address] PRASANNA KAMINSKI Facility:[facility] Start: 01-15-2022 End: 01-17-[address] PRASANNA KAMINSKI Facility:[facility] Start: 12-30-2021 End: 12-30-[address] JOSE MIGUEL BOATENG Facility:[facility] Start: 12-29-2021 End: 12-29-[address] JOSE MIGUEL BOATENG Facility:[facility] Start: 12-18-2021 End: 12-18-[address] PRASANNA KAMINSKI Facility:[facility] Start: 11-27-2021 End: 11-28-[address] JOSE MIGUEL BOATENG Facility:[facility] Start: 11-23-2021 End: 11-23-[address] DOCTOR MAGANAC Facility:[facility] Start: 11-06-2021 End: 11-07-[address] LORENZANA MISC Facility:[facility] Start: 10-29-2021 End: 10-29-[address] LORENZANA MISC Facility:[facility] Start: 10-26-2021 End: 10-26-[address] MISC Facility:[facility] Start: 10-26-2021 End: 10-27-[address] DOCTOR MISC Facility:[facility] Start: 10-24-2021 End: 10-24-[address] LORENZANA MISC Facility:[facility] Start: 09-28-2021 End: 09-29-[address] JOSE MIGUEL BOATENG Facility:[facility] Start: 09-16-2021 End: 09-16-2021 ambulatory ILIR JUAREZ Facility:[facility] Start: 06-21-2021 End: 09-19-20[address] [facility] Start: 03-05-2020 End: 03-06-2020 Patient encounter procedure VIBAH JOHNSON [facility] Start: 03-05-2020 End: 03-05-2020 Subsequent hospital visit by physician Vibha Johnson Work Phone: [facility] Comment on above: Chronic low back sharon n, unspecified back pain laterality, unspecified whether sciatica present Procedures Date Procedure Procedure Detail Performing Clinician Start: 02-08-2022 Delivery of Products of Conception, External Approach DR DOCTOR BAHENA Start: 02-08-2022 Drainage of Amniotic Fluid, Therapeutic from Products of Conception, Via Natural or Artificial Opening DR DOCTOR BAHENA Start: 02-08-2022 Introduction of Othe r Hormone into Peripheral Vein, Percutaneous Approach DR DOCTOR BAHENA Start: 02-08-2022 Repair Perineum Skin , External Approach DR DOCTOR BAHENA Start: 03-05-2020 Radex spine lumbosac ral 2/3 views External Transcribed Plan of Treatment Date Care Activity Detail Author Start: 02-16-2020 Influenza vaccination given Se quential Influenza Vaccine (#1) [facility] Start: 2014 Hepatitis C antibody , confirmatory test Hepatitis C Screening [facility] Start: 08-31-2011 HIV screening HIV Screening [facility] Start: 08-31-2007 Vaccination for [place] papillomavirus HPV Vaccines (1 - 2-dose series) [facility] Start: 08-31-1999 History and physical examination, annual for health maintenance Wellness Visit [facility] Start: 1996 Screening for Chlamy tristan trachomatis Chlamydia Screening [facility] Start: 1996 Screening for malign ant neoplasm of cervix Pap Smear [facility] Start: 1996 Tetanus vaccination Tetanus: Every 1 0yrs [facility] Payers Date Payer Category Payer Self-pay 1995 Unknown [id number] 1996 Unknown [id number] 2..[id number] 1996 Unknown [id number] 2..840.1.062342.3.579.2.593 1996 Unknown [id number] 2.16.840.1.291387.3.579.2.593 1996 Unknown [id number] 2.16.840.1.244604.3.579.2.593 1996 Unknown [id number] 2.16.840.1.976272.3.579.2.593 1996 Unknown [id number] 2.16.840.1.648933.3.579.2.593 1996 Unknown [id number] 2.16.840.1.747385.3.579.2.593 1996 Unknown [id number] 2.16.840.1.049761.3.579.2.593 1996 Unknown [id number] 2.16.840.1.536979.3.579.2.593 1996 Unknown [id number] 2.16.840.1.024264.3.579.2.593 1996 Unknown [id number] 2.16.840.1.818975.3.579.2.593 1996 Unknown [id number] 2.16.840.1.217618.3.579.2.593 1996 Unknown [id number] 2.16.840.1.337770.3.579.2.593 1996 Unknown [id number] 2.16.840.1.758251.3.579.2.593 1996 Unknown [id number] 2.16.840.1.026800.3.579.2.593 1996 Unknown [id number] 2.16.840.1.644215.3.579.2.593 1996 Unknown [id number] 2.16.840.1.667200.3.579.2.593 1996 Unknown [id number] 2.16.840.1.518383.3.579.2.593 1996 Unknown [id number] 2.16.840.1.644682.3.579.2.593 1996 Unknown [id number] 2.16.840.1.397212.3.579.2.593 1996 Unknown [id number] 2.16.840.1.005926.3.579.2.593 1996 Unknown [id number] 2.16.840.1.930464.3.579.2.1259 1959 Unknown [id number] 1959 Unknown [id number] Unknown COMMERCIAL COMME RCIAL MISCELLANEOUS [id number] Effective for all dates [id number]. [id number] Unknown [id number] Unknown [id number] 2.16.840.1.079071.3.579.2.531 Social History Date Type Detail Facility Tobacco smoking status NHIS Unknown if ev er smoked [facility] Sex Assigned At Not on file [facility] Sex Assigned At Female [facility] Clinical Note 01-16-2022 Note Date & Type Note Facility 01-16-2022 Note OB ultrasound for bi ophysical profile and evaluation of the placenta, 01/16/2022 4:48 PM EDT COMPARISON: Placental ultrasound, 01/15/2022. CLINICAL HISTORY: GENERALIZED ABDOMINAL PAIN patient is approximately 35 weeks and 5 days . Biophysical profile ultrasound: Biophysical profile is scored: breathing score 2 out of 2. tone score 2 out of 2. movements score 2 out of 2. Qualitative amniotic fluid amount score 2 out of 2. reactivity was not performed or the results are not known at time of examination. This gives a total of 8 out of 8. The position is cephalic. The heart rate is 137 beats per minute. Amniotic fluid index is 10.9 cm. Deepest vertical pocket measures 3.7 cm. Placental ultrasound: position is cephalic with longitudinal lie. Placenta is located anteriorly and has a normal sonographic appearance with a grade of 1. IMPRESSION: 1. A score of 8 of 8 is noted. 2. The heart rate is 137 beats per minute. 3. The position is cephalic with longitudinal lie. Amniotic fluid index 10.9 cm. 4. Placenta is located anteriorly and has a normal sonographic appearance with a grade of 1. Electronically authenticated by: Cecelia FOOTE Date: 2022-01-16 21:33 [facility] Clinical Note 01-16-2022 Note Date & Type Note Facility 01-16-2022 Note OB ultrasound for bi ophysical profile and evaluation of the placenta, 01/16/2022 4:48 PM EDT COMPARISON: Placental ultrasound, 01/15/2022. CLINICAL HISTORY: GENERALIZED ABDOMINAL PAIN patient is approximately 35 weeks and 5 days . Biophysical profile ultrasound: Biophysical profile is scored: breathing score 2 out of 2. tone score 2 out of 2. movements score 2 out of 2. Qualitative amniotic fluid amount score 2 out of 2. reactivity was not performed or the results are not known at time of examination. This gives a total of 8 out of 8. The position is cephalic. The heart rate is 137 beats per minute. Amniotic fluid index is 10.9 cm. Deepest vertical pocket measures 3.7 cm. Placental ultrasound: position is cephalic with longitudinal lie. Placenta is located anteriorly and has a normal sonographic appearance with a grade of 1. IMPRESSION: 1. A score of 8 of 8 is noted. 2. The heart rate is 137 beats per minute. 3. The position is cephalic with longitudinal lie. Amniotic fluid index 10.9 cm. 4. Placenta is located anteriorly and has a normal sonographic appearance with a grade of 1. Electronically authenticated by: Cecelia FOOTE Date: 2022-01-16 21:33 [facility] Clinical Note 01-15-2022 Note Date & Type Note Facility 01-15-2022 Note PROCEDURE: US KIDNEY S, 01/15/2022, 7:44 AM EDT CLINICAL INDICATIONS: Left lower quadrant abdominal pain for one day, third trimester , 35 weeks 5 days, contractions. COMPARISON: None TECHNIQUE: Renal sonogram, grayscale and color assessment. FINDINGS: Right kidney: 12.0 x 5.1 x 5.5 cm Left kidney: 13.4 x 5.9 x 5.6 cm Prevoid bladder volume: 567 mL Postvoid bladder volume: 0 mL Renal parenchyma is normal in echogenicity and cortical thickness. Shadowing calculus or focal renal abnormality is not evident. There is mild left pelvocaliectasis, not significantly changed on post void evaluation. Urinary bladder abnormality is not evident. Ureteral jets intact bilaterally. IMPRESSION: 1. Mild left hydronephrosis or pelvocaliectasis. Ureteral jets are intact. No sign of complete obstructive uropathy is evident. Differential considerations include partial left obstructive uropathy versus physiologic distention of . 2. No shadowing calculus or focal renal abnormality. 3. No post void bladder residual. Electronically authenticated by: IGOR DIAZ Date: 2022-01-15 10:10 [facility] Evaluation + Plan note Note Date & Type Note Facility Evaluation + Plan note No data available for this section [facility] Hospital Discharge instructions Note Date & Type Note Facility Hospital Discharge instructions No data available for this section [facility] Summary Purpose Family History No Family History Records FoundNo Family History Records FoundNo Family History Records FoundNo Family History Records FoundNo Family History Records FoundNo Family History Records Found Advance Directives No Advanced Directives Records FoundDocuments on File Type Date Recorded Patient Issuer Expl anation Advance Directives and Livin g Will 03/05/2020 2:18 PM Assessments Diagnosis Chronic low back pain, unspecified back pain laterality, unspecified whether sciatica present Additional Source Comments INFORMATION SOURCE (unrecogn ized section and content) DATE CREATED AUTHOR 11/08/2018 [facility] DATE CREATED AUTHOR AUTHOR'S ORGANIZ ATION 03/21/2020 [facility] DATE CREATED AUTHOR AUTHOR'S ORGANIZ ATION 08/04/2022 [facility] DATE CREATED AUTHOR AUTHOR'S ORGANIZ ATION 09/06/2022 [facility] DATE CREATED AUTHOR AUTHOR'S ORGANIZ ATION 07/03/2023 [facility] DATE CREATED AUTHOR AUTHOR'S ORGANIZ ATION 07/13/2023 [facility] FOR RECORDS PERTAINING TO PATIENTS WHO ARE OR HAVE BEEN ENROLLED IN A CHEMICAL DEPENDENCY/SUBSTANCEABUSE PROGRAM, SOME INFORMATION MAY BE OMITTED. This clinical summary was aggregated from multiple sources. Caution should be exercised in using it in the provision of clinical care. This summary normalizes information from multiple sources, and as a consequence, information in this document may materially change the coding, format and clinical context of patient data. In addition, data may be omitted in some cases. CLINICAL DECISIONS SHOULD BE BASED ON THE PRIMARY CLINICAL RECORDS. [facility] [employer] [facility]. provides no warranty or guarantee of the accuracy or completeness of information in this document.
== END 2023-07-19 08:28 | disposition home or self-care (01) ==
LOC: NOMS 08:28
PROVIDERS: PCP Nurse Practitioner Family; Visit Provider Obstetrics & Gynecology
DX: Z34.91 Encounter for supervision of normal pregnancy, unspecified, first trimester (principal); Z3A.08 8 weeks gestation of pregnancy; N92.6 Irregular menstruation, unspecified
CPT/HCPCS: 76817

== ENCOUNTER 2023-07-25 15:37 | Outpatient (OUT) | payer OTHER, SELFPAY ==
--- OUTSIDE RECORDS SUMMARY | 2023-07-25 15:48 | XMS_ITS | CCD ---
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 Name Role Phone Farrah Garcia Primary Care Provider VIBHA JOHNSON Attending Unavailable VIBHA JOHNSON Referring Unavailable FARRAH GARCIA Primary Care Unavailable Kelli Oliver Primary Care Physician MISC, DR LORENZANA Primary Care Unavailable MANOJ CUNNINGHAM Consulting Unavailable MANOJ CUNNINGHAM Admitting Unavailable MANOJ CUNNINGHAM Attending Unavailable ILIR JUAREZ Consulting Unavailable JUSTEN, DR GILLESPIE Attending Unavailable JUSTEN, DR GILLESPIE Admitting Unavailable KARBELIA, DR MIMS Consulting Unavailable REQUEST, NONE LISTED Primary Care Unavaila naina CAMPUZANO, DR GILLESPIE Consulting Unavailable JUSTEN, DR GILLESPIE Procedure Practitioner Unavailab KRISTINA Keller Attending Unavailable KRISTINA VELEZ Consulting Unavailable KRISTINA VELEZ Admitting Unavailable HSRUTI, DR LORENZANA Primary Care Unavailable DAMIAN, DR LYLA Sanchez Consulting Unavailable DAMIAN, DR LYLA Sanchez Admitting Unavailable DAMIAN, DR LYLA Sanchez Attending Unavailable REQUEST, NONE LISTED Primary Care Unavaila Gagandeep Ferreira Consulting Unavailable JUSTEN, DR GILLESPIE Consulting Unavailable SHRUTI, DR LORENZANA Primary Care Unavailable JUSTEN, DR GILLESPIE Attending Unavailable JUSTEN, DR GILLESPIE Admitting Unavailable MISC, DR LORENZANA Primary Care Unavailable KRISTINA VELEZ Attending Unavailable KRISTINA VELEZ Consulting Unavailable KRISTINA VELEZ Admitting Unavailable KARASIK, DR MIMS Attending Unavailable KARASIK, DR MIMS Consulting Unavailable YAMILEX, DR MIMS Admitting Unavailable MISC, DR LORENZANA Primary Care Unavailable JUSTEN, DR GILLESPIE Consulting Unavailable ZIEBER, DR DAVID Sanchez Consulting Unavailable NILL, DR GARLAND Consulting Unavailable KONSTIGOR HERNANDEZ Consulting Unavailable TROTTI, LUISITO Consulting Unavailable JUSTEN, DR GILLESPIE Consulting Unavailable JUSTEN, DR GILLESPIE Admitting Unavailable JUSTEN, DR GILLESPIE Attending Unavailable LAVELLE, DUARTE Primary Care Unavailable LAVELLE, DUARTE Attending Unavailable LAVELLE, DUARTE Consulting Unavailable LAVELLE, DUARTE Primary Care Unavailable LAVELLE, DUARTE Admitting Unavailable MISC, DR LORENZANA Primary Care Unavailable JUSTEN, DR GILLESPIE Consulting Unavailable JUSTEN, DR GILLESPIE Admitting Unavailable JUSTEN, DR GILLESPIE Attending Unavailable MISC, DR LORENZANA Primary Care Unavailable JUSTEN, DR GILLESPIE Consulting Unavailable JUSTEN, DR GILLESPIE Attending Unavailable JUSTEN, DR GILLESPIE Admitting Unavailable KARASIK, DR MIMS [...] Admitting Unavailable KARASIK, DR MIMS Attending Unavailable JUSTEN, DR GILLESPIE Consulting Unavailable JUSTEN, DR GILLESPIE Admitting Unavailable JUSTEN, DR GILLESPIE Attending Unavailable REQUEST, DR NONE LISTED Primary Care Unavaila ble ZIEBER, DR DAVID Sanchez Consulting Unavailable MISC, DR LORENZANA Primary Care Unavailable JUSTEN, DR GILLESPIE Consulting Unavailable JUSTEN, DR GILLESPIE Admitting Unavailable JUSTEN, DR GILLESPIE Attending Unavailable ZIEBER, DR DAVID Sanchez Consulting Unavailable JUSTEN, DR GILLESPIE Consulting Unavailable JUSTEN, DR GILLESPIE Admitting Unavailable JUSTEN, DR GILLESPIE Attending Unavailable MISC, DR LORENZANA Primary Care Unavailable ILIR JUAREZ Consulting Unavailable ANN, ILIR Admitting Unavailable ILIR JUAREZ Attending Unavailable FARRAH GARCIA Primary Care Unavailable LAVELLE, DUARTE Consulting Unavailable LAVELLE, DUARTE Primary Care Unavailable LAVELLE, DUARTE Admitting Unavailable LAVELLE, DUARTE Attending Unavailable JUSTEN, DR GILLESPIE Consulting Unavailable JUSTEN, DR GILLESPIE Admitting Unavailable JUSTEN, DR GILLESPIE Attending Unavailable REQUEST, DR NONE LISTED Primary Care Unavaila ble ZIEBER, DR DAVID Sanchez Consulting Unavailable JUSTEN, DR JOSE MIGUEL Attending Unavailable [place], DR KIRK Johnson Consulting Unavailable DR JOSE MIGUEL CAMPUZANO Admitting Unavailable [facility] LORENZANA Primary Care Unavailable DR JOSE MIGUEL CAMPUZANO Consulting Unavailable Royer Simmons Attending Unavailab Royer Watts Admitting Unavailab [facility] Primary Care Unavailable Unavailable Primary Care Provider UnavailJOSE MIGUEL Barreto Attending Unavailable Allergies Allergy Classification Reported Allergen(s) Allergy Type Date of Onset Reaction(s) Facility (1 source) Desonide Drug Allergy 9 [facility] Repository (1 source) Wound Dressing Adhesive Drug Intolerance 2 Itching [facility] Work Phone: Medications Current Medications Medication Drug Class(es) Dates Sig (Normalized) Sig (Original) ferrous sulfate 325 mg oral tablet (1 source) Start: 09-27-2022 take 1 tablet by mouth in the morning ferrous sulfate 325 (65 Fe) MG tablet Take 1 tablet by mouth in the morning and 1 tablet before bedtime. 0 09/27/2022 Active ondansetron 4 mg disintegrating oral tablet (2 sources) Serotonin-3 Receptor Antagonist Start: 03-20-2023 End: 10-17-2023 take 1 tablet by mouth every six hours as needed for nausea and vomiting and nausea and nausea ondansetron ODT (Zofran-ODT) 4 MG disintegrating tablet Indications: Nausea Take 1 tablet (4 mg) by mouth every 6 (six) hours if needed for nausea or vomiting 30 tablet 2 07/19/2023 10/17/2023 Active predniSONE (1 source) Start: 03-13-2013 predniSONE Oral, Daily, Refills(s) 0 Start Date: 03/13/13 Status: Ordered valACYclovir 500 mg oral tablet (1 source) Herpesvirus Nucleoside Analog DNA Polymerase Inhibitor, Herpes Simplex Virus Nucleoside Analog DNA Polymerase Inhibitor, Herpes Zoster Virus Nucleoside Analog DNA Polymerase Inhibitor Start: 09-15-2022 take 1 tablet by mouth in the morning valACYclovir (Valtrex) 500 MG tablet Take 500 mg by mouth in the morning. 0 09/15/2022 Active Completed/Discontinued Medications Medication Drug Class(es) Dates Sig [...] 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: [GERD WITHOUT ESOPHAGITIS] Onset: 02-05-2022 Chronic Menstrual disorders (1 source) Missed period; 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: [Irregular menstruation, unspecified] 07-17-2023 Chronic Mood disorders (1 source) Bipolar disorder, unspecified; 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: [BIPOLAR DISORDER UNSPECIFIED] Onset: 02-05-2022 Chronic Nausea and vomiting (6 sources) Nausea; 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: [Nausea with vomiting, unspecified] Onset: 10-24-2021 Episodic Other complications of (1 source) A/N care: [...] fatigue; 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: [OTHER FATIGUE] Onset: 04-18-2022 Episodic Nonspecific chest pain (4 sources) Precordial pain; 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: [Chest pain, unspecified] Onset: 02-10-2022 Episodic OB-related trauma to perineum and vulva (1 source) First degree perineal laceration during delivery; 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: [FIRST DEG PERINEAL LAC DUR DELIV] Onset: 02-15-2022 Episodic Other aftercare (1 source) 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; 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: [OTH SKILLED NURSING CURRENT DRUG THERAPY] Onset: 02-05-2022 Episodic Other [...] Test Name Value Interpretation Reference Range Facility HCG ( test) Ql (U)o n 07-19-2023 Interpretation and review of laboratory results Abnormal [facility] Preg Test, Ur Positive [facility] Urinalysis macro (dipstick) panel (U)on 07-19-2023 Bilirubin, UA Negative Negative - 4(70) +++ mg/dL [facility] Blood, UA Positive Negative - 50 Anselmo/mcL [facility] Comment on above: moderate Clarity, UA Clear [facility] Color, UA [place] [facility] Glucose, UA Negative Negative - 1999(110) ++++ mg/dL [facility] Interpretation and review of laboratory results Abnormal [facility] Ketones, UA Positive Negative - 160(16) ++++ mg/dL [facility] Comment on above: trace Leukocytes, UA Positive Negative - 500+++ Monik/mcL [facility] Comment on above: small Nitrite, UA Negative Negative - Positive [facility] pH, UA 6.0 5 - 9 [facility] Protein, UA Positive Negative - 1999(20) ++++ mg/dL [facility] Comment on above: 30 Spec Grav, UA 1.030 1 - 1.03 [facility] Urobilinogen, UA 1.0 0.2 - 12 mg/dL [facility] In office Testingon 09-06- 23 In office Testing [id number] 1.00CD:[address] [facility] CBC AUTO DIFFon 07-30-2022 BASO # 0.1 103/ul Normal 0.0-0.1 [facility] Comment on above: Performed By: #### U RCX #### [facility] [address] [place] [address] Dr. Caitlin Martinez Basophils/100 WBC (Bld) 1.1 % Normal 0.2-2.0 [facility] Comment on above: Performed By: #### U RCX #### [facility] [address] [place] [address] Dr. Caitlin Martinez EO # 0.3 103/ul Normal 0.0-0.7 [facility] Comment on above: Performed By: #### U RCX #### [facility] [address] [address] [address] Caitlin Martinez Eosinophils/100 WBC (Bld) 4.7 % Normal 0.9-7.0 [facility] Comment on above: Performed By: #### U RCX #### [facility] [address] [place] [address] Dr. Caitlin Martinez Erythrocyte distribution width (RBC) [Ratio] 14.7 % Normal 11.0-15.0 [facility] Comment on above: Performed By: #### U RCX #### [facility] [address] [place] [address] Dr. Caitlin Martinez Hematocrit (Bld) [Volume fraction] 39.3 % Normal 36.0-48.0 [facility] Comment on above: Performed By: #### U RCX #### [facility] [address] [place] [address] Dr. Caitlin Martinez Hemoglobin (Bld) [Mass/Vol] 12.7 g/dL Normal 12.0-16.0 [facility] Comment on above: Performed By: #### U RCX #### [facility] [address] [place] [address] Dr. Caitlin Martinez IG # 0.02 10e3/ul Normal 0.00-0.03 [facility] Comment on above: Performed By: #### U RCX #### [facility] [address] [place] [address] Dr. Caitlin Martinez IG % 0.3 % Normal 0.0-0.5 [facility] Comment on above: Performed By: #### U RCX #### [facility] [address] [place] [address] Dr. Caitlin Martinez LYMPH # 2.5 103/ul Normal 1.2-3.8 [facility] Comment on above: Performed By: #### U RCX #### [facility] [address] [place] [address] Dr. Caitlin Martinez Lymphocytes/100 WBC (Bld) 34.5 % Normal 20.5-60.0 [facility] Comment on above: Performed By: #### U RCX #### [facility] [address] [place] [address] Dr. Caitlin Martinez MANUAL DIFF REQ NO Normal [facility] Comment on above: Performed By: #### U RCX #### [facility] [address] [place] [address] Dr. Caitlin Martinez MCH (RBC) [Entitic mass] 27.3 pg Normal 26.7-34.0 [facility] Comment on above: Performed By: #### U RCX #### [facility] [address] [address] [address] Caitlin Martinez MCHC (RBC) [Mass/Vol] 32.3 g/dL Normal 29.9-35.2 [facility] Comment on above: Performed By: #### U RCX #### [facility] [address] [address] [address] Caitlin Martinez MCV (RBC) [Entitic vol] 84.5 fL Normal 81.0-99.0 [facility] Comment on above: Performed By: #### U RCX #### [facility] [address] [place] [address] Dr. Caitlin Martinez MONO # 0.5 103/ul Normal 0.3-0.8 [facility] Comment on above: Performed By: #### U RCX #### [facility] [address] [place] [address] Dr. Caitlin Martinez Monocytes/100 WBC (Bld) 7.3 % Normal 1.7-12.0 [facility] Comment on above: Performed By: #### U RCX #### [facility] [address] [place] [address] Dr. Caitlin Martinez NEUT # 3.8 103/ul Normal 1.4-6.5 [facility] Comment on above: Performed By: #### U RCX #### [facility] [address] [place] [address] Dr. Caitlin Martinez Neutrophils/100 WBC (Bld) 52.1 % Normal 43.0-75.0 [facility] Comment on above: Performed By: #### U RCX #### [facility] [address] [place] [address] Dr. Caitlin Martinez Platelet mean volume (Bld) [Entitic vol] 9.0 fL Critically low 9.5-13.5 [facility] Comment on above: Performed By: #### U RCX #### [facility] [address] [place] [address] Dr. Caitlin Martinez PLT 368 103/ul Normal 150-450 [facility] Comment on above: Performed By: #### U RCX #### [facility] [address] [address] [address] Caitlin Martinez RBC 4.65 106/ul Normal 4.20-5.40 [facility] Comment on above: Performed By: #### U RCX #### [facility] [address] [address] [address] Caitlin Martinez WBC 7.2 103/ul Normal 4.0-11.0 [facility] Comment on above: Performed By: #### U RCX #### [facility] [address] [place] [address] Dr. Caitlin Martinez IRONon 07-30-2022 Iron [Mass/Vol] 43.0 ug/dL Critically low 50.0-170.0 [facility] Comment on above: Performed By: #### U RCX #### [facility] [address] [place] [address] Dr. Caitlin Martinez PAP ACOG PANEL 2: 21 to 30on 07-30-2022 . . Normal [facility] Comment on above: Performed By: #### U RCX #### [facility] [address] [place] [address] Dr. Caitlin Martinez Age Gdln ACOG Testing - [facility] Comment on above: Performed By: #### U RCX #### [facility] [address] [place] [address] Dr. Caitlin Martinez DIAGNOSIS: Comment Normal [facility] Comment on above: Result Comment: NEGA TIVE FOR INTRAEPITHELIAL LESION OR MALIGNANCY. Performed By: #### U RCX #### [facility] [address] [place] [address] Dr. Caitlin Martinez Methodology: Comment Normal [facility] Comment on above: Result Comment: This liquid based ThinPrep(R) pap test was screened with the use of an image guided system. Performed By: #### U RCX #### [facility] [address] [place] [address] Dr. Caitlin Martinez Note: Comment Normal [facility] Comment on above: Result Comment: The Pap smear is a screening test designed to aid in the detection of premalignant and malignant conditions of the uterine cervix. It is not a diagnostic procedure and should not be used as the sole means of detecting cervical cancer. Both false-positive and false-negative reports do occur. . Performed By: #### U RCX #### [facility] [address] [place] [address] Dr. Caitlin Martinez Performed by: Comment Normal [facility] Comment on above: Result Comment: Bhavna Cormier, Level Designer (ASCP) Performed By: #### U RCX #### [facility] [address] [place] [address] Dr. Caitlin Martinez Reflex Criteria: Comment Normal [facility] Comment on above: Result Comment: The HPV DNA reflex criteria were not met with this specimen result therefore, no HPV testing was performed. . Performed By: #### U RCX #### [facility] [address] [place] [address] Dr. Caitlin Martinez Specimen adequacy: Comment Normal [facility] Comment on above: Result Comment: Sati sfactory for evaluation. Endocervical and/or squamous metaplastic cells (endocervical component) are present. Performed By: #### U RCX #### [facility] [address] [place] [address] Dr. Caitlin Martinez INSULINon 04-19-2022 Insulin 9.1 uIU/mL Normal 2.6-24.9 [facility] Comment on above: Performed By: #### I HORACIO #### [facility] [address] [place] [address] Dr. Caitlin Martinez CBC AUTO DIFFon 04-18-2022 BASO # 0.1 103/ul Normal 0.0-0.1 [facility] Comment on above: Performed By: #### U RCX #### [facility] [address] [place] [address] Dr. Caitlin Martinez Basophils/100 WBC (Bld) 1.0 % Normal 0.2-2.0 [facility] Comment on above: Performed By: #### U RCX #### [facility] [address] [place] [address] Dr. Caitlin Martinez EO # 0.3 103/ul Normal 0.0-0.7 [facility] Comment on above: Performed By: #### U RCX #### [facility] [address] [place] [address] Dr. Caitlin Martinez Eosinophils/100 WBC (Bld) 4.1 % Normal 0.9-7.0 [facility] Comment on above: Performed By: #### U RCX #### [facility] [address] [place] [address] Dr. Caitlin Martinez Erythrocyte distribution width (RBC) [Ratio] 16.0 % Critically high 11.0-15.0 [facility] Comment on above: Performed By: #### U RCX #### [facility] [address] [place] [address] Dr. Caitlin Martinez Hematocrit (Bld) [Volume fraction] 35.7 % Critically low 36.0-48.0 [facility] Comment on above: Performed By: #### U RCX #### [facility] [address] [place] [address] Dr. Caitlin Martinez Hemoglobin (Bld) [Mass/Vol] 10.9 g/dL Critically low 12.0-16.0 [facility] Comment on above: Performed By: #### U RCX #### [facility] [address] [place] [address] Dr. Caitlin Martinez IG # 0.07 10e3/ul Critically high 0.00-0.03 [facility] Comment on above: Performed By: #### U RCX #### [facility] [address] [place] [address] Dr. Caitlin Martinez IG % 1.0 % Critically high 0.0-0.[address] [facility] Comment on above: Performed By: #### U RCX #### [facility] [address] [place] [address] Dr. Caitlin Martinez LYMPH # 2.3 103/ul Normal 1.2-3.8 [facility] Comment on above: Performed By: #### U RCX #### [facility] [address] [place] [address] Dr. Caitlin Martinez Lymphocytes/100 WBC (Bld) 31.4 % Normal 20.5-60.0 [facility] Comment on above: Performed By: #### U RCX #### [facility] [address] [place] [address] Dr. Caitlin Martinez MANUAL DIFF REQ NO Normal [facility] Comment on above: Performed By: #### U RCX #### [facility] [address] [place] [address] Dr. Caitlin Martinez MCH (RBC) [Entitic mass] 24.8 pg Critically low 26.7-34.0 [facility] Comment on above: Performed By: #### U RCX #### [facility] [address] [place] [address] Dr. Caitlin Martinez MCHC (RBC) [Mass/Vol] 30.5 g/dL Normal 29.9-35.2 [facility] Comment on above: Performed By: #### U RCX #### [facility] [address] [place] [address] Dr. Caitlin Martinez MCV (RBC) [Entitic vol] 81.1 fL Normal 81.0-99.0 [facility] Comment on above: Performed By: #### U RCX #### [facility] [address] [place] [address] Dr. Caitlin Martinez MONO # 0.5 103/ul Normal 0.3-0.8 [facility] Comment on above: Performed By: #### U RCX #### [facility] [address] [place] [address] Dr. Caitlin Martinez Monocytes/100 WBC (Bld) 6.6 % Normal 1.7-12.0 [facility] Comment on above: Performed By: #### U RCX #### [facility] [address] [place] [address] Dr. Caitlin Martinez NEUT # 4.1 103/ul Normal 1.4-6.5 [facility] Comment on above: Performed By: #### U RCX #### [facility] [address] [place] [address] Dr. Caitlin Martinez Neutrophils/100 WBC (Bld) 55.9 % Normal 43.0-75.0 [facility] Comment on above: Performed By: #### U RCX #### [facility] [address] [place] [address] Dr. Caitlin Martinez Platelet mean volume (Bld) [Entitic vol] 9.4 fL Critically low 9.5-13.5 [facility] Comment on above: Performed By: #### U RCX #### [facility] [address] [place] [address] Dr. Caitlin Martinez PLT 369 103/ul Normal 150-450 [facility] Comment on above: Performed By: #### U RCX #### [facility] [address] [place] [address] Dr. Caitlin Martinez RBC 4.40 106/ul Normal 4.20-5.40 [facility] Comment on above: Performed By: #### U RCX #### [facility] [address] [place] [address] Dr. Caitlin Martinez WBC 7.3 103/ul Normal 4.0-11.0 [facility] Comment on above: Performed By: #### U RCX #### [facility] [address] [place] [address] Dr. Caitlin Martinez FREE THYROXINE INDEX T7on FTI 2.20 Normal 1.30-4.50 [facility] Comment on above: Performed By: #### I HORACIO #### [facility] [address] [place] [address] Dr. Caitlin Martinez T3U 29.0 % Critically low 30.0-39.0 [facility] Comment on above: Performed By: #### I HORACIO #### [facility] [address] [place] [address] Dr. Caitlin Martinez T4 [Mass/Vol] 7.60 ug/dL Normal 4.80-13.90 [facility] Comment on above: Performed By: #### I HORACIO #### [facility] [address] [place] [address] Dr. Caitlin Martinez GLYCOHEMOGLOBIN A1Con 2021 ADA RECOMMENDATION SEE BELOW Normal [facility] Comment on above: Result Comment: ADA RECOMMENDED LIMIT 4.0 - 6.0 ADA THERAPEUTIC TARGET < 7.0 ACTION SUGGESTED > 7.0 Performed By: #### U RCX #### [facility] [address] [address] [address] Caitlin Martinez Glucose [Mass/Vol] 97 mg/dL Normal [facility] Comment on above: Performed By: #### U RCX #### [facility] [address] [address] [address] Caitlin Martinez HbA1c (Bld) [Mass fraction] 5.0 % Normal 4.5-6.2 [facility] Comment on above: Performed By: #### U RCX #### [facility] [address] [place] [address] Dr. Caitlin Martinez IRONon 04-18-2022 Iron [Mass/Vol] 35.0 ug/dL Critically low 50.0-170.0 [facility] Comment on above: Performed By: #### I HORACIO #### [facility] [address] [place] [address] Dr. Caitlin Martinez LIPID PROFILEon 04-18-2022 CHOL-HDL RATIO NORM SEE BELOW Normal [facility] Comment on above: Result Comment: 3.3 - 4.4 LOW RISK 4.4 - 7.1 AVERAGE RISK 7.1 - 11.0 MODERATE RISK >11.0 HIGH RISK Performed By: #### I HORACIO #### [facility] [address] [address] [address] Caitlin Martinez Cholesterol [Mass/Vol] 221 mg/dL Critically high <=200 [facility] Comment on above: Performed By: #### I HORACIO #### [facility] [address] [place] [address] Dr. Caitlin Martinez Cholesterol in HDL [Mass/Vol] 67 mg/dL Critically high 40-60 [facility] Comment on above: Performed By: #### I HORACIO #### [facility] [address] [address] [address] Caitlin Martinez Cholesterol in LDL [Mass/Vol] 142.4 mg/dL Normal [facility] Comment on above: Performed By: #### I HORACIO #### [facility] [address] [address] [address] Caitlin Martinez Cholesterol.total/Cho lesterol in HDL [Mass ratio] 3.3 {ratio} Normal [facility] Comment on above: Performed By: #### I HORACIO #### [facility] [address] [address] [address] Caitlin Martinez HDL NORMAL > or = 60 mg/dl - LO W CARDIOVASCULAR RISK <40 mg/dl - HIGH CARDIOVASCULAR RISK Normal [facility] Comment on above: Performed By: #### I HORACIO #### [facility] [address] [address] [address] Caitlin Martinez LDL CALC NORMAL SEE BELOW Normal [facility] Comment on above: Result Comment: <100 mg/dl OPTIMAL 100 - 129 mg/dl NEAR OR ABOVE OPTIMAL 130 - 159 mg/dl BORDERLINE HIGH 160 - 189 mg/dl HIGH >190 mg/dl VERY HIGH Performed By: #### I HORACIO #### [facility] [address] [address] [address] Caitlin Martinez Triglyceride [Mass/Vol] 58 mg/dL Normal <=150 [facility] Comment on above: Performed By: #### I HORACIO #### [facility] [address] [place] [address] Dr. Caitlin Martinez VLDL CALC 11.6 mg/dL Normal [facility] Comment on above: Performed By: #### I HORACIO #### [facility] [address] [place] [address] Dr. Caitlin Martinez PROF 14(COMP METB)on 022 Albumin [Mass/Vol] 3.8 g/dL Normal 3.4-5.0 [facility] Comment on above: Performed By: #### I HORACIO #### [facility] [address] [place] [address] Dr. Caitlin Martinez Albumin/Globulin [Mass ratio] 1.1 {ratio} Normal [facility] Comment on above: Performed By: #### I HORACIO #### [facility] [address] [address] [address] Caitlin Martinez ALP [Catalytic activity/Vol] 132 U/L Critically high 46-116 [facility] Comment on above: Performed By: #### I HORACIO #### [facility] [address] [place] [address] Dr. Caitlin Martinez ALT [Catalytic activity/Vol] 55 U/L Normal 14-59 [facility] Comment on above: Performed By: #### I HORACIO #### [facility] [address] [place] [address] Dr. Caitlin Martinez Anion gap [Moles/Vol] 12.6 mmol/L Normal [facility] Comment on above: Performed By: #### I HORACIO #### [facility] [address] [place] [address] Dr. Caitlin Martinez AST [Catalytic activity/Vol] 27 U/L Normal 15-37 [facility] Comment on above: Performed By: #### I HORACIO #### [facility] [address] [place] [address] Dr. Caitlin Martinez Bilirubin [Mass/Vol] 0.6 mg/dL Normal 0.2-1.0 [facility] Comment on above: Performed By: #### I HORACIO #### [facility] [address] [place] [address] Dr. Caitlin Martinez Calcium [Mass/Vol] 9.1 mg/dL Normal 8.5-10.1 [facility] Comment on above: Performed By: #### I HORACIO #### [facility] [address] [place] [address] Dr. Caitlin Martinez Chloride [Moles/Vol] 106 mmol/L Normal 98-107 [facility] Comment on above: Performed By: #### I HORACIO #### [facility] [address] [place] [address] Dr. Caitlin Martinez CO2 [Moles/Vol] 26.5 mmol/L Normal 21.0-32.0 [facility] Comment on above: Performed By: #### I HORACIO #### [facility] [address] [place] [address] Dr. Caitlin Martinez Creatinine [Mass/Vol] 0.63 mg/dL Normal 0.55-1.02 [facility] Comment on above: Performed By: #### I HORACIO #### [facility] [address] [address] [address] Caitlin Martinez EGFR-AF [place] >60 Normal >=60 [facility] Comment on above: Performed By: #### I HORACIO #### [facility] [address] [address] [address] Caitlin Martinez EGFR-NON AF [place] >60 Normal >=60 [facility] Comment on above: Performed By: #### I HORACIO #### [facility] [address] [address] [address] Caitlin Martinez Globulin (S) [Mass/Vol] 3.6 g/dL Normal [facility] Comment on above: Performed By: #### I HORACIO #### [facility] [address] [address] [address] Caitlin Martinez Glucose [Mass/Vol] 98 mg/dL Normal 74-106 [facility] Comment on above: Performed By: #### I HORACIO #### [facility] [address] [address] [address] Caitlin Martinez Potassium [Moles/Vol] 4.1 mmol/L Normal 3.5-5.1 [facility] Comment on above: Performed By: #### I HORACIO #### [facility] [address] [address] [address] Caitlin Martinez Protein [Mass/Vol] 7.4 g/dL Normal 6.4-8.2 [facility] Comment on above: Performed By: #### I HORACIO #### [facility] [address] [address] [address] Caitlin Martinez Sodium [Moles/Vol] 141 mmol/L Normal 136-145 [facility] Comment on above: Performed By: #### I HORACIO #### [facility] [address] [address] [address] Caitlin Martinez Urea nitrogen [Mass/Vol] 9.0 mg/dL Normal 7.0-18.0 [facility] Comment on above: Performed By: #### I HORACIO #### [facility] [address] [place], [place] [address] Dr. Caitlin Martinez Urea nitrogen/Creatinine [Mass ratio] 14.3 mg/mg Normal [facility] Comment on above: Performed By: #### I HORACIO #### [facility] [address] [place], [place] [address] Dr. Caitlin Martinez TSHon 04-18-2022 TSH 1.349 uIU/mL Normal 0.358-3.740 [facility] Comment on above: Performed By: #### I HORACIO #### [facility] [address] [address] [address] Caitlin Martinez ANTIBODY ID PANELon 02-15-20 22 ANTIBODY ID PANEL Antibody ID Anti-D Blood Bank Notes most likely due to Rhogam given on 12/01/21 Normal [facility] Comment on above: Performed By: #### D IRCMB, ABID #### [facility] [address] [address] [address] Caitlin Martinez CTA CHEST WO W [...] GAGANDEEP WHEELER Date: 2022-02-10 22:55 Normal [facility] CBC AUTO DIFFon 02-10-2022 BASO # 0.1 103/ul Normal 0.0-0.1 [facility] Comment on above: Performed By: #### C BC #### [facility] [address] [address] [address] Caitlin Martinez Basophils/100 WBC (Bld) 0.4 % Normal 0.2-2.0 [facility] Comment on above: Performed By: #### C BC #### [facility] [address] [address] [address] Caitlin Martinez EO # 0.5 103/ul Normal 0.0-0.7 [facility] Comment on above: Performed By: #### C BC #### [facility] [address] [address] [address] Caitlin Martinez Eosinophils/100 WBC (Bld) 4.2 % Normal 0.9-7.0 [facility] Comment on above: Performed By: #### C BC #### [facility] [address] [address] [address] Caitlin Martinez Erythrocyte distribution width (RBC) [Ratio] 14.7 % Normal 11.0-15.0 [facility] Comment on above: Performed By: #### C BC #### [facility] [address] [address] [address] Caitlin Martinez Hematocrit (Bld) [Volume fraction] 31.1 % Critically low 36.0-48.0 [facility] Comment on above: Performed By: #### C BC #### [facility] [address] [address] [address] Caitlin Martinez Hemoglobin (Bld) [Mass/Vol] 9.6 g/dL Critically low 12.0-16.0 [facility] Comment on above: Performed By: #### C BC #### [facility] [address] [address] [address] Caitlin Martinez IG # 0.28 10e3/ul Critically high 0.00-0.03 [facility] Comment on above: Performed By: #### C BC #### [facility] [address] [address] [address] Caitlin Martinez IG % 2.3 % Critically high 0.0-0.[address] [facility] Comment on above: Performed By: #### C BC #### [facility] [address] [address] [address] Caitlin Martinez LYMPH # 3.3 103/ul Normal 1.2-3.8 [facility] Comment on above: Performed By: #### C BC #### [facility] [address] [place] [address] Dr. Caitlin Martinez Lymphocytes/100 WBC (Bld) 26.9 % Normal 20.5-60.0 [facility] Comment on above: Performed By: #### C BC #### [facility] [address] [place] [address] Dr. Caitlin Martinez MANUAL DIFF REQ NO Normal [facility] Comment on above: Performed By: #### C BC #### [facility] [address] [place] [address] Dr. Caitlin Martinez MCH (RBC) [Entitic mass] 26.2 pg Critically low 26.7-34.0 [facility] Comment on above: Performed By: #### C BC #### [facility] [address] [place] [address] Dr. Caitlin Martinez MCHC (RBC) [Mass/Vol] 30.9 g/dL Normal 29.9-35.2 [facility] Comment on above: Performed By: #### C BC #### [facility] [address] [place] [address] Dr. Caitlin Martinez MCV (RBC) [Entitic vol] 84.7 fL Normal 81.0-99.0 [facility] Comment on above: Performed By: #### C BC #### [facility] [address] [place] [address] Dr. Caitlin Martinez MONO # 1.1 103/ul Critically high 0.3-0.[address] [facility] Comment on above: Performed By: #### C BC #### [facility] [address] [place] [address] Dr. Caitlin Martinez Monocytes/100 WBC (Bld) 8.7 % Normal 1.7-12.0 [facility] Comment on above: Performed By: #### C BC #### [facility] [address] [address] [address] Caitlin Martinez NEUT # 7.0 103/ul Critically high 1.4-6.5 [facility] Comment on above: Performed By: #### C BC #### [facility] [address] [address] [address] Caitlin Martinez Neutrophils/100 WBC (Bld) 57.5 % Normal 43.0-75.0 [facility] Comment on above: Performed By: #### C BC #### [facility] [address] [place] [address] Dr. Caitlin Martinez Platelet mean volume (Bld) [Entitic vol] 9.1 fL Critically low 9.5-13.5 [facility] Comment on above: Performed By: #### C BC #### [facility] [address] [place] [address] Dr. Caitlin Martinez PLT 437 103/ul Normal 150-450 [facility] Comment on above: Performed By: #### C BC #### [facility] [address] [place] [address] Dr. Caitlin Martinez RBC 3.67 106/ul Critically low 4.20-5.[address] [facility] Comment on above: Performed By: #### C BC #### [facility] [address] [place] [address] Dr. Caitlin Martinez WBC 12.3 103/ul Critically high 4.0-11.0 [facility] Comment on above: Performed By: #### C BC #### [facility] [address] [place] [address] Dr. Caitlin Martinez [facility]16 SARS-CoV-2 (COVID-19) RNA JONATAN+probe Ql (Unsp spec) Not detected Normal NOT DETECTED [facility] Comment on above: Result Comment: When [...] for this test is supported by the [employer] of [employer] and Human Service's declaration that [...] longer be used). Performed By: #### C VDTB #### [facility] [address] [place] [address] Dr. Caitlin Martinez PROF 14(COMP METB)on 022 Albumin [Mass/Vol] 2.1 g/dL Critically low 3.4-5.0 [facility] Comment on above: Performed By: #### U RCX #### [facility] [address] [place] [address] Dr. Caitlin Martinez Albumin/Globulin [Mass ratio] 0.5 {ratio} Normal [facility] Comment on above: Performed By: #### U RCX #### [facility] [address] [place] [address] Dr. Caitlin Martinez ALP [Catalytic activity/Vol] 202 U/L Critically high 46-116 [facility] Comment on above: Performed By: #### U RCX #### [facility] [address] [place] [address] Dr. Caitlin Martinez ALT [Catalytic activity/Vol] 20 U/L Normal 14-59 [facility] Comment on above: Performed By: #### U RCX #### [facility] [address] [place] [address] Dr. Caitlin Martinez Anion gap [Moles/Vol] 11.6 mmol/L Normal [facility] Comment on above: Performed By: #### U RCX #### [facility] [address] [place] [address] Dr. Caitlin Martinez AST [Catalytic activity/Vol] 17 U/L Normal 15-37 [facility] Comment on above: Performed By: #### U RCX #### [facility] [address] [place] [address] Dr. Caitlin Martinez Bilirubin [Mass/Vol] 0.3 mg/dL Normal 0.2-1.0 [facility] Comment on above: Performed By: #### U RCX #### [facility] [address] [place] [address] Dr. Caitlin Martinez Calcium [Mass/Vol] 9.2 mg/dL Normal 8.5-10.1 [facility] Comment on above: Performed By: #### U RCX #### [facility] [address] [place] [address] Dr. Caitlin Martinez Chloride [Moles/Vol] 104 mmol/L Normal 98-107 [facility] Comment on above: Performed By: #### U RCX #### [facility] [address] [place] [address] Dr. Caitlin Martinez CO2 [Moles/Vol] 26.9 mmol/L Normal 21.0-32.0 [facility] Comment on above: Performed By: #### U RCX #### [facility] [address] [place] [address] Dr. Caitlin Martinez Creatinine [Mass/Vol] 0.56 mg/dL Normal 0.55-1.02 [facility] Comment on above: Performed By: #### U RCX #### [facility] [address] [place] [address] Dr. Caitlin Martinez EGFR-AF [place] >60 Normal >=60 [facility] Comment on above: Performed By: #### U RCX #### [facility] [address] [place] [address] Dr. Caitlin Martinez EGFR-NON AF [place] >60 Normal >=60 [facility] Comment on above: Performed By: #### U RCX #### [facility] [address] [place] [address] Dr. Caitlin Martinez Globulin (S) [Mass/Vol] 4.4 g/dL Normal [facility] Comment on above: Performed By: #### U RCX #### [facility] [address] [address] [address] Caitlin Martinez Glucose [Mass/Vol] 108 mg/dL Critically high 74-106 [facility] Comment on above: Performed By: #### U RCX #### [facility] [address] [address] [address] Caitlin Martinez Potassium [Moles/Vol] 3.5 mmol/L Normal 3.5-5.1 [facility] Comment on above: Performed By: #### U RCX #### [facility] [address] [address] [address] Caitlin Martinez Protein [Mass/Vol] 6.5 g/dL Normal 6.4-8.2 [facility] Comment on above: Performed By: #### U RCX #### [facility] [address] [address] [address] Caitlin Martinez Sodium [Moles/Vol] 139 mmol/L Normal 136-145 [facility] Comment on above: Performed By: #### U RCX #### [facility] [address] [address] [address] Caitlin Martinez Urea nitrogen [Mass/Vol] 7.0 mg/dL Normal 7.0-18.0 [facility] Comment on above: Performed By: #### U RCX #### [facility] [address] [address] [address] Caitlin Martinez Urea nitrogen/Creatinine [Mass ratio] 12.5 mg/mg Normal [facility] Comment on above: Performed By: #### U RCX #### [facility] [address] [address] [address] Caitlin Martinez TROPONIN, HIGH SENSITIVITYon 02-10-2022 HSTROP <4.0 Normal 4.0-51.3 [facility] Comment on above: Result Comment: CUT- OFF POINTS HAVE BEEN ESTABLISHED BASED ON THE FOURTH UNIVERSAL DEFINITIONS OF MYOCARDIAL INFARCTION. THE UPPER REFERENCE LIMIT (URL) OF TROPONIN, DEFINED THE 99TH PERCENTILE OF cTnI DISTRIBUTION IN A REFERENCE POPULATION, HAS BEEN CONFIRMED THE DECISION THRESHOLD FOR WI DIAGNOSIS. Performed By: #### U RCX #### [facility] [address] [place] [address] Dr. Caitlin Martinez CBC AUTO DIFFon 02-09-2022 BASO # 0.1 103/ul Normal 0.0-0.1 [facility] Comment on above: Performed By: #### U RCX #### [facility] [address] [place] [address] Dr. Caitlin Martinez Basophils/100 WBC (Bld) 0.6 % Normal 0.2-2.0 [facility] Comment on above: Performed By: #### U RCX #### [facility] [address] [place] [address] Dr. Caitlin Martinez EO # 0.3 103/ul Normal 0.0-0.7 [facility] Comment on above: Performed By: #### U RCX #### [facility] [address] [place] [address] Dr. Caitlin Martinez Eosinophils/100 WBC (Bld) 2.3 % Normal 0.9-7.0 [facility] Comment on above: Performed By: #### U RCX #### [facility] [address] [place] [address] Dr. Caitlin Martinez Erythrocyte distribution width (RBC) [Ratio] 14.6 % Normal 11.0-15.0 [facility] Comment on above: Performed By: #### U RCX #### [facility] [address] [place] [address] Dr. Caitlin Martinez Hematocrit (Bld) [Volume fraction] 28.8 % Critically low 36.0-48.0 [facility] Comment on above: Performed By: #### U RCX #### [facility] [address] [place] [address] Dr. Caitlin Martinez Hemoglobin (Bld) [Mass/Vol] 9.0 g/dL Critically low 12.0-16.0 [facility] Comment on above: Performed By: #### U RCX #### [facility] [address] [place] [address] Dr. Caitlin Martinez IG # 0.20 10e3/ul Critically high 0.00-0.03 [facility] Comment on above: Performed By: #### U RCX #### [facility] [address] [place] [address] Dr. Caitlin Martinez IG % 1.5 % Critically high 0.0-0.5 [facility] Comment on above: Performed By: #### U RCX #### [facility] [address] [place] [address] Dr. Caitlin Martinez LYMPH # 3.0 103/ul Normal 1.2-3.8 [facility] Comment on above: Performed By: #### U RCX #### [facility] [address] [place] [address] Dr. Caitlin Martinez Lymphocytes/100 WBC (Bld) 22.2 % Normal 20.5-60.0 [facility] Comment on above: Performed By: #### U RCX #### [facility] [address] [place] [address] Dr. Caitlin Martinez MANUAL DIFF REQ NO Normal [facility] Comment on above: Performed By: #### U RCX #### [facility] [address] [place] [address] Dr. Caitlin Martinez MCH (RBC) [Entitic mass] 26.2 pg Critically low 26.7-34.0 [facility] Comment on above: Performed By: #### U RCX #### [facility] [address] [place] [address] Dr. Caitlin Martinez MCHC (RBC) [Mass/Vol] 31.3 g/dL Normal 29.9-35.2 [facility] Comment on above: Performed By: #### U RCX #### [facility] [address] [place] [address] Dr. Caitlin Martinez MCV (RBC) [Entitic vol] 83.7 fL Normal 81.0-99.0 [facility] Comment on above: Performed By: #### U RCX #### [facility] [address] [place] [address] Dr. Caitlin Martinez MONO # 1.3 103/ul Critically high 0.3-0.[address] [facility] Comment on above: Performed By: #### U RCX #### [facility] [address] [place] [address] Dr. Caitlin Martinez Monocytes/100 WBC (Bld) 9.8 % Normal 1.7-12.0 [facility] Comment on above: Performed By: #### U RCX #### [facility] [address] [place] [address] Dr. Caitlin Martinez NEUT # 8.5 103/ul Critically high 1.4-6.[address] [facility] Comment on above: Performed By: #### U RCX #### [facility] [address] [place] [address] Dr. Caitlin Martinez Neutrophils/100 WBC (Bld) 63.6 % Normal 43.0-75.0 [facility] Comment on above: Performed By: #### U RCX #### [facility] [address] [place] [address] Dr. Caitlin Martinez Platelet mean volume (Bld) [Entitic vol] 9.1 fL Critically low 9.5-13.5 [facility] Comment on above: Performed By: #### U RCX #### [facility] [address] [place] [address] Dr. Caitlin Martinez PLT 355 103/ul Normal 150-450 [facility] Comment on above: Performed By: #### U RCX #### [facility] [address] [place] [address] Dr. Caitlin Martinez RBC 3.44 106/ul Critically low 4.20-5.[address] [facility] Comment on above: Performed By: #### U RCX #### [facility] [address] [place] [address] Dr. Caitlin Martinez WBC 13.3 103/ul Critically high 4.0-11.0 [facility] Comment on above: Performed By: #### U RCX #### [facility] [address] [place] [address] Dr. Caitlin Martinez SCREENon 02-09-2022 SCREEN Negative Normal [facility] Comment on above: Performed By: #### F ETSCRN #### [facility] [address] [place] [address] Dr. Caitlin Martinez CBC AUTO DIFFon 02-08-2022 BASO # 0.1 103/ul Normal 0.0-0.1 [facility] Comment on above: Performed By: #### U RCX #### [facility] [address] [place] [address] Dr. Caitlin Martinez Basophils/100 WBC (Bld) 0.4 % Normal 0.2-2.0 [facility] Comment on above: Performed By: #### U RCX #### [facility] [address] [place] [address] Dr. Caitlin Martinez EO # 0.3 103/ul Normal 0.0-0.7 [facility] Comment on above: Performed By: #### U RCX #### [facility] [address] [place] [address] Dr. Caitlin Martinez Eosinophils/100 WBC (Bld) 2.6 % Normal 0.9-7.0 [facility] Comment on above: Performed By: #### U RCX #### [facility] [address] [place] [address] Dr. Caitlin Martinez Erythrocyte distribution width (RBC) [Ratio] 14.7 % Normal 11.0-15.0 [facility] Comment on above: Performed By: #### U RCX #### [facility] [address] [place] [address] Dr. Caitlin Martinez Hematocrit (Bld) [Volume fraction] 30.6 % Critically low 36.0-48.0 [facility] Comment on above: Performed By: #### U RCX #### [facility] [address] [place] [address] Dr. Caitlin Martinez Hemoglobin (Bld) [Mass/Vol] 9.7 g/dL Critically low 12.0-16.0 [facility] Comment on above: Performed By: #### U RCX #### [facility] [address] [place] [address] Dr. Caitlin Martinez IG # 0.15 10e3/ul Critically high 0.00-0.03 [facility] Comment on above: Performed By: #### U RCX #### [facility] [address] [place] [address] Dr. Caitlin Martinez IG % 1.3 % Critically high 0.0-0.5 [facility] Comment on above: Performed By: #### U RCX #### [facility] [address] [address] [address] Caitlin Martinez LYMPH # 2.8 103/ul Normal 1.2-3.8 [facility] Comment on above: Performed By: #### U RCX #### [facility] [address] [place] [address] Dr. Caitlin Martinez Lymphocytes/100 WBC (Bld) 24.8 % Normal 20.5-60.0 [facility] Comment on above: Performed By: #### U RCX #### [facility] [address] [place] [address] Dr. Caitlin Martinez MANUAL DIFF REQ NO Normal [facility] Comment on above: Performed By: #### U RCX #### [facility] [address] [place] [address] Dr. Caitlin Martinez MCH (RBC) [Entitic mass] 26.6 pg Critically low 26.7-34.0 [facility] Comment on above: Performed By: #### U RCX #### [facility] [address] [place] [address] Dr. Caitlin Martinez MCHC (RBC) [Mass/Vol] 31.7 g/dL Normal 29.9-35.2 [facility] Comment on above: Performed By: #### U RCX #### [facility] [address] [place] [address] Dr. Caitlin Martinez MCV (RBC) [Entitic vol] 83.8 fL Normal 81.0-99.0 [facility] Comment on above: Performed By: #### U RCX #### [facility] [address] [place] [address] Dr. Caitlin Martinez MONO # 1.0 103/ul Critically high 0.3-0.[address] [facility] Comment on above: Performed By: #### U RCX #### [facility] [address] [place] [address] Dr. Caitlin Martinez Monocytes/100 WBC (Bld) 8.7 % Normal 1.7-12.0 [facility] Comment on above: Performed By: #### U RCX #### [facility] [address] [place] [address] Dr. Caitlin Martinez NEUT # 7.0 103/ul Critically high 1.4-6.[address] [facility] Comment on above: Performed By: #### U RCX #### [facility] [address] [place] [address] Dr. Caitlin Martinez Neutrophils/100 WBC (Bld) 62.2 % Normal 43.0-75.0 [facility] Comment on above: Performed By: #### U RCX #### [facility] [address] [place] [address] Dr. Caitlin Martinez Platelet mean volume (Bld) [Entitic vol] 9.0 fL Critically low 9.5-13.5 [facility] Comment on above: Performed By: #### U RCX #### [facility] [address] [place] [address] Dr. Caitlin Martinez PLT 373 103/ul Normal 150-450 [facility] Comment on above: Performed By: #### U RCX #### [facility] [address] [place] [address] Dr. Caitlin Martinez RBC 3.65 106/ul Critically low 4.20-5.[address] [facility] Comment on above: Performed By: #### U RCX #### [facility] [address] [place] [address] Dr. Caitlin Martinez WBC 11.3 103/ul Critically high 4.0-11.0 [facility] Comment on above: Performed By: #### U RCX #### [facility] [address] [place] [address] Dr. Caitlin Martinez Covid-19 PCR (CVDTB)on 01-16 SARS-CoV-2 (COVID-19) RNA JONATAN+probe Ql (Unsp spec) Not detected Normal NOT DETECTED [facility] Comment on above: Result Comment: When [...] for this test is supported by the [place] of Health and Human Service's declaration that [...] used). Performed By: #### C BC #### [facility] [address] [place] [address] Dr. Caitlin Martinez DIRECT COOMBSon 02-08-2022 DIRECT EDWINA Negative Normal [facility] Comment on above: Performed By: #### D IRCMB, ABID #### [facility] [address] [address] [address] Caitlin Martinez DRUG SCREEN RAPID (URINE)on 02-08-2022 AMP Negative Normal NEGATIVE [facility] Comment on above: Performed By: #### C BC #### [facility] [address] [address] [address] Caitlin Martinez BAR Negative Normal NEGATIVE [facility] Comment on above: Performed By: #### C BC #### [facility] [address] [address] [address] Caitlin Martinez BUP Negative Normal NEGATIVE [facility] Comment on above: Performed By: #### C BC #### [facility] [address] [address] [address] Caitlin Martinez BZO Negative Normal NEGATIVE [facility] Comment on above: Performed By: #### C BC #### [facility] [address] [address] [address] Caitlin Martinez JEANNA Negative Normal NEGATIVE [facility] Comment on above: Performed By: #### C BC #### [facility] [address] [address] [address] Caitlin Martinez CUT-OFFS SEE BELOW Normal [facility] Comment on above: Result Comment: AMP [...] ng/mL Performed By: #### C BC #### [facility] [address] [place] [address] Dr. Caitlin Martinez DRUG CUT HEADER DRUG CLASS TEST SYSTEM CUT-OFF CONCENTRATIONS ARE FOLLOWS: Normal [facility] Comment on above: Performed By: #### C BC #### [facility] [address] [place] [address] Dr. Caitlin Martinez mAMP Negative Normal NEGATIVE [facility] Comment on above: Performed By: #### C BC #### [facility] [address] [address] [address] Caitlin Martinez MTD Negative Normal NEGATIVE [facility] Comment on above: Performed By: #### C BC #### [facility] [address] [place] [address] Dr. Caitlin Martinez OPI Negative Normal NEGATIVE [facility] Comment on above: Performed By: #### C BC #### [facility] [address] [place] [address] Dr. Caitlin Martinez OXY Negative Normal NEGATIVE [facility] Comment on above: Performed By: #### C BC #### [facility] [address] [address] [address] Caitlin Martinez PCP Negative Normal NEGATIVE [facility] Comment on above: Performed By: #### C BC #### [facility] [address] [address] [address] Caitlin Martinez PPX Negative Normal NEGATIVE [facility] Comment on above: Performed By: #### C BC #### [facility] [address] [address] [address] Caitlin Martinez TCA Negative Normal NEGATIVE [facility] Comment on above: Performed By: #### C BC #### [facility] [address] [place] [address] Dr. Caitlin Martinez THC Negative Normal NEGATIVE [facility] Comment on above: Performed By: #### C BC #### [facility] [address] [place] [address] Dr. Caitlin Martinez TYPE AND SCREENon 02-08-2022 TYPE AND SCREEN Negative Normal [facility] Comment on above: Performed By: #### I HORACIO #### [facility] [address] [place] [address] Dr. Caitlin Martinez US PREG BIOPHY W [...] DAVID BLACKMON Date: 2022-02-05 16:28 Normal [facility] AMNISUREon 01-25-2022 AMNISURE Negative Normal NEGATIVE [facility] Comment on above: Performed By: #### A MNI #### [facility] [address] [place] [address] Dr. Caitlin Martinez CULTURE URINEon 01-25-2022 CULTURE URINE Culture Observations : No growth Normal [facility] Comment on above: Performed By: #### U RCX #### [facility] [address] [place] [address] Dr. Caitlin Martinez UA (CLEAN/CATCH) MOBILE LAB TECHNICIAN/MICRO I F IND.on 01-25-2022 Bilirubin Ql (U) Negative Normal NEGATIVE [facility] Comment on above: Performed By: #### C VDTBH #### [facility] [address] [place] [address] Dr. Caitlin Martinez Clarity (U) SL CLOUDY Abnormal CLEAR [facility] Comment on above: Performed By: #### C VDTBH #### [facility] [address] [place] [address] Dr. Caitlin Martinez Color (U) LT. YELLOW Normal YELLOW [facility] Comment on above: Performed By: #### C VDTBH #### [facility] [address] [place] [address] Dr. Caitlin Martinez Glucose Ql (U) Negative Normal NEGATIVE [facility] Comment on above: Performed By: #### C VDTBH #### [facility] [address] [place] [address] Dr. Caitlin Martinez Hemoglobin Ql (U) TRACE-INTACT Abnormal NEGATIVE [facility] Comment on above: Performed By: #### C VDTBH #### [facility] [address] [place] [address] Dr. Caitlin Martinez Ketones Ql (U) Negative Normal NEGATIVE [facility] Comment on above: Performed By: #### C VDTBH #### [facility] [address] [place] [address] Dr. Caitlin Martinez LEUKOCYTES TRACE Abnormal NEGATIVE [facility] Comment on above: Performed By: #### C VDTBH #### [facility] [address] [place] [address] Dr. Caitlin Martinez Nitrite Ql (U) Negative Normal NEGATIVE [facility] Comment on above: Performed By: #### C VDTBH #### [facility] [address] [place] [address] Dr. Caitlin Martinez pH (U) 6.5 [pH] Normal 5-9 [facility] Comment on above: Performed By: #### C VDTBH #### [facility] [address] [place] [address] Dr. Caitlin Martinez SPEC GRAVITY 1.020 Normal 1.005-<=1.[address] [facility] Comment on above: Performed By: #### C VDTBH #### [facility] [address] [place] [address] Dr. Caitlin Martinez UA PROTEIN Negative Normal NEGATIVE/ TRACE [facility] Comment on above: Performed By: #### C VDTBH #### [facility] [address] [place] [address] Dr. Caitlin Martinez UR MICRO IND INDICATED Normal [facility] Comment on above: Performed By: #### C VDTBH #### [facility] [address] [place] [address] Dr. Caitlin Martinez Urobilinogen Qn (U) 0.2 {Barbara'U}/dL Normal 0.2 - 1. 0 [facility] Comment on above: Performed By: #### C VDTBH #### [facility] [address] [place] [address] Dr. Caitlin Martinez URINE MICROSCOPIC ONLYon BACTERIA MODERATE Abnormal NONE SEEN [facility] Comment on above: Performed By: #### C VDTBH #### [facility] [address] [place] [address] Dr. Caitlin Martinez Bacteria identified Cx Nom (U) INDICATED Normal [facility] Comment on above: Performed By: #### C VDTBH #### [facility] [address] [place] [address] Dr. Caitlin Martinez CAST NONE SEEN Normal NONE SEEN [facility] Comment on above: Performed By: #### C VDTBH #### [facility] [address] [place] [address] Dr. Caitlin Martinez Crystals LM Nom (Urine sed) NONE SEEN Normal NONE SEEN [facility] Comment on above: Performed By: #### C VDTBH #### [facility] [address] [place] [address] Dr. Caitlin Martinez Epithelial cells LM Ql (Urine sed) FEW Abnormal NONE SEEN /RARE [facility] Comment on above: Performed By: #### C VDTBH #### [facility] [address] [place] [address] Dr. Caitlin Martinez MUCOUS TRACE Abnormal NONE SEEN [facility] Comment on above: Performed By: #### C VDTBH #### [facility] [address] [place] [address] Dr. Caitlin Martinez RBC 2-5 Abnormal 0-2 [facility] Comment on above: Performed By: #### C VDTBH #### [facility] [address] [place] [address] Dr. Caitlin Martinez WBC 0-2 Abnormal NONE SEEN [facility] Comment on above: Performed By: #### C VDTBH #### [facility] [address] [place] [address] Dr. Caitlin Martinez AMYLASEon 01-16-2022 Amylase [Catalytic activity/Vol] 49 U/L Normal 25-115 [facility] Comment on above: Performed By: #### C VDTBH #### [facility] [address] [place] [address] Dr. Caitlin Martinez BUNon 01-16-2022 Urea nitrogen [Mass/Vol] 3.0 mg/dL Critically low 7.0-18.0 [facility] Comment on above: Performed By: #### C BC #### [facility] [address] [place] [address] Dr. Caitlin Martinez CBC AUTO DIFFon 01-16-2022 BASO # 0.1 103/ul Normal 0.0-0.1 [facility] Comment on above: Performed By: #### U RCX #### [facility] [address] [place] [address] Dr. Caitlin Martinez Basophils/100 WBC (Bld) 0.6 % Normal 0.2-2.0 [facility] Comment on above: Performed By: #### U RCX #### [facility] [address] [address] [address] Caitlin Martinez EO # 0.3 103/ul Normal 0.0-0.7 [facility] Comment on above: Performed By: #### U RCX #### [facility] [address] [place] [address] Dr. Caitlin Martinez Eosinophils/100 WBC (Bld) 2.6 % Normal 0.9-7.0 [facility] Comment on above: Performed By: #### U RCX #### [facility] [address] [place] [address] Dr. Caitlin Mratinez Erythrocyte distribution width (RBC) [Ratio] 14.4 % Normal 11.0-15.0 [facility] Comment on above: Performed By: #### U RCX #### [facility] [address] [place] [address] Dr. Caitlin Martinez Hematocrit (Bld) [Volume fraction] 28.4 % Critically low 36.0-48.0 [facility] Comment on above: Performed By: #### U RCX #### [facility] [address] [place] [address] Dr. Caitlin Martinez Hemoglobin (Bld) [Mass/Vol] 9.0 g/dL Critically low 12.0-16.0 [facility] Comment on above: Performed By: #### U RCX #### [facility] [address] [place] [address] Dr. Caitlin Martinez IG # 0.11 10e3/ul Critically high 0.00-0.03 [facility] Comment on above: Performed By: #### U RCX #### [facility] [address] [place] [address] Dr. Caitlin Martinez IG % 1.1 % Critically high 0.0-0.[address] [facility] Comment on above: Performed By: #### U RCX #### [facility] [address] [place] [address] Dr. Caitlin Martinez LYMPH # 2.2 103/ul Normal 1.2-3.8 [facility] Comment on above: Performed By: #### U RCX #### [facility] [address] [address] [address] Caitlin Martinez Lymphocytes/100 WBC (Bld) 21.0 % Normal 20.5-60.0 [facility] Comment on above: Performed By: #### U RCX #### [facility] [address] [address] [address] Caitlin Martinez MANUAL DIFF REQ NO Normal [facility] Comment on above: Performed By: #### U RCX #### [facility] [address] [address] [address] Caitlin Martinez MCH (RBC) [Entitic mass] 28.2 pg Normal 26.7-34.0 [facility] Comment on above: Performed By: #### U RCX #### [facility] [address] [place] [address] Dr. Caitlin Martinez MCHC (RBC) [Mass/Vol] 31.7 g/dL Normal 29.9-35.2 [facility] Comment on above: Performed By: #### U RCX #### [facility] [address] [place] [address] Dr. Caitlin Martinez MCV (RBC) [Entitic vol] 89.0 fL Normal 81.0-99.0 [facility] Comment on above: Performed By: #### U RCX #### [facility] [address] [place] [address] Dr. Caitlin Martinez MONO # 0.9 103/ul Critically high 0.3-0.[address] [facility] Comment on above: Performed By: #### U RCX #### [facility] [address] [place] [address] Dr. Caitlin Martinez Monocytes/100 WBC (Bld) 8.9 % Normal 1.7-12.0 [facility] Comment on above: Performed By: #### U RCX #### [facility] [address] [place] [address] Dr. Caitlin Martinez NEUT # 6.8 103/ul Critically high 1.4-6.[address] [facility] Comment on above: Performed By: #### U RCX #### [facility] [address] [address] [address] Caitlin Martinez Neutrophils/100 WBC (Bld) 65.8 % Normal 43.0-75.0 [facility] Comment on above: Performed By: #### U RCX #### [facility] [address] [address] [address] Caitlin Martinez Platelet mean volume (Bld) [Entitic vol] 8.6 fL Critically low 9.5-13.5 [facility] Comment on above: Performed By: #### U RCX #### [facility] [address] [address] [address] Caitlin Martinez PLT 322 103/ul Normal 150-450 [facility] Comment on above: Performed By: #### U RCX #### [facility] [address] [place] [address] Dr. Caitlin Martinez RBC 3.19 106/ul Critically low 4.20-5.[address] [facility] Comment on above: Performed By: #### U RCX #### [facility] [address] [place] [address] Dr. Caitlin Martinez WBC 10.3 103/ul Normal 4.0-11.0 [facility] Comment on above: Performed By: #### U RCX #### [facility] [address] [place] [address] Dr. Caitlin Martinez CREATININEon 01-16-2022 Creatinine [Mass/Vol] 0.55 mg/dL Normal 0.55-1.02 [facility] Comment on above: Performed By: #### C VDTBH #### [facility] [address] [place] [address] Dr. Caitlin Martinez EGFR-AF [place] >60 Normal >=60 [facility] Comment on above: Performed By: #### C VDTBH #### [facility] [address] [place] [address] Dr. Caitlin Martinez EGFR-NON AF [place] >60 Normal >=60 [facility] Comment on above: Performed By: #### C VDTBH #### [facility] [address] [address] [address] Caitlin Martinez ELECTROLYTESon 01-16-2022 Anion gap [Moles/Vol] 13.6 mmol/L Normal [facility] Comment on above: Performed By: #### C VDTBH #### [facility] [address] [place] [address] Dr. Caitlin Martinez Chloride [Moles/Vol] 106 mmol/L Normal 98-107 [facility] Comment on above: Performed By: #### C VDTBH #### [facility] [address] [place] [address] Dr. Caitlin Martinez CO2 [Moles/Vol] 22.9 mmol/L Normal 21.0-32.0 [facility] Comment on above: Performed By: #### C VDTBH #### [facility] [address] [place] [address] Dr. Caitlin Martinez Potassium [Moles/Vol] 3.5 mmol/L Normal 3.5-5.1 [facility] Comment on above: Performed By: #### C VDTBH #### [facility] [address] [place] [address] Dr. Caitlin Martinez Sodium [Moles/Vol] 139 mmol/L Normal 136-145 [facility] Comment on above: Performed By: #### C VDTBH #### [facility] [address] [place] [address] Dr. Caitlin Martinez LIPASEon 01-16-2022 Lipase [Catalytic activity/Vol] 66.0 U/L Critically low 73.0-393.0 [facility] Comment on above: Performed By: #### C BC #### [facility] [address] [place] [address] Dr. Caitlin Martinez SGOTon 01-16-2022 AST [Catalytic activity/Vol] 12 U/L Critically low 15-37 [facility] Comment on above: Performed By: #### C VDTBH #### [facility] [address] [place] [address] Dr. Caitlin Martinez SGPTon 01-16-2022 ALT [Catalytic activity/Vol] 9 U/L Critically low 14-59 [facility] Comment on above: Performed By: #### C VDTBH #### [facility] [address] [place] [address] Dr. Caitlin Mratinez CBC AUTO DIFFon 01-15-2022 BASO # 0.1 103/ul Normal 0.0-0.1 [facility] Comment on above: Performed By: #### C VDTBH #### [facility] [address] [place] [address] Dr. Caitlin Martinez Basophils/100 WBC (Bld) 0.4 % Normal 0.2-2.0 [facility] Comment on above: Performed By: #### C VDTBH #### [facility] [address] [place] [address] Dr. Caitlin Martinez EO # 0.2 103/ul Normal 0.0-0.7 [facility] Comment on above: Performed By: #### C VDTBH #### [facility] [address] [place] [address] Dr. Caitlin Martinez Eosinophils/100 WBC (Bld) 1.4 % Normal 0.9-7.0 [facility] Comment on above: Performed By: #### C VDTBH #### [facility] [address] [place] [address] Dr. Caitlin Martinez Erythrocyte distribution width (RBC) [Ratio] 14.1 % Normal 11.0-15.0 [facility] Comment on above: Performed By: #### C VDTBH #### [facility] [address] [place] [address] Dr. Caitlin Martinez Hematocrit (Bld) [Volume fraction] 28.4 % Critically low 36.0-48.0 [facility] Comment on above: Performed By: #### C VDTBH #### [facility] [address] [place] [address] Dr. Caitlin Martinez Hemoglobin (Bld) [Mass/Vol] 9.0 g/dL Critically low 12.0-16.0 [facility] Comment on above: Performed By: #### C VDTBH #### [facility] [address] [address] [address] Caitlin Martinez IG # 0.18 10e3/ul Critically high 0.00-0.03 [facility] Comment on above: Performed By: #### C VDTBH #### [facility] [address] [place] [address] Dr. Caitlin Martinez IG % 1.3 % Critically high 0.0-0.[address] [facility] Comment on above: Performed By: #### C VDTBH #### [facility] [address] [place] [address] Dr. Caitlin Martinez LYMPH # 2.4 103/ul Normal 1.2-3.8 [facility] Comment on above: Performed By: #### C VDTBH #### [facility] [address] [place] [address] Dr. Caitlin Martinez Lymphocytes/100 WBC (Bld) 16.8 % Critically low 20.5-60.0 [facility] Comment on above: Performed By: #### C VDTBH #### [facility] [address] [place] [address] Dr. Caitlin Martinez MANUAL DIFF REQ NO Normal [facility] Comment on above: Performed By: #### C VDTBH #### [facility] [address] [place] [address] Dr. Caitlin Martinez MCH (RBC) [Entitic mass] 27.9 pg Normal 26.7-34.0 [facility] Comment on above: Performed By: #### C VDTBH #### [facility] [address] [place] [address] Dr. Caitlin Martinez MCHC (RBC) [Mass/Vol] 31.7 g/dL Normal 29.9-35.2 [facility] Comment on above: Performed By: #### C VDTBH #### [facility] [address] [place] [address] Dr. Caitlin Martinez MCV (RBC) [Entitic vol] 87.9 fL Normal 81.0-99.0 [facility] Comment on above: Performed By: #### C VDTBH #### [facility] [address] [address] [address] Caitlin Martinez MONO # 0.9 103/ul Critically high 0.3-0.[address] [facility] Comment on above: Performed By: #### C VDTBH #### [facility] [address] [address] [address] Caitlin Martinez Monocytes/100 WBC (Bld) 6.7 % Normal 1.7-12.0 [facility] Comment on above: Performed By: #### C VDTBH #### [facility] [address] [address] [address] Caitlin Martinez NEUT # 10.3 103/ul Critically high 1.4-6.5 [facility] Comment on above: Performed By: #### C VDTBH #### [facility] [address] [place] [address] Dr. Caitlin Martinez Neutrophils/100 WBC (Bld) 73.4 % Normal 43.0-75.0 [facility] Comment on above: Performed By: #### C VDTBH #### [facility] [address] [place] [address] Dr. Caitlin Martinez Platelet mean volume (Bld) [Entitic vol] 9.0 fL Critically low 9.5-13.5 [facility] Comment on above: Performed By: #### C VDTBH #### [facility] [address] [place] [address] Dr. Caitlin Martinez PLT 318 103/ul Normal 150-450 [facility] Comment on above: Performed By: #### C VDTBH #### [facility] [address] [place] [address] Dr. Caitlin Martinez RBC 3.23 106/ul Critically low 4.20-5.[address] [facility] Comment on above: Performed By: #### C VDTBH #### [facility] [address] [place] [address] Dr. Caitlin Martinez WBC 14.0 103/ul Critically high 4.0-11.0 [facility] Comment on above: Performed By: #### C VDTBH #### [facility] [address] [address] [address] ABD/PELVIS WO CONon [...] DAVID BLACKMON Date: 2022-01-15 16:31 Normal [facility] CULTURE URINEon 01-15-2022 CULTURE URINE Culture Observations : LIGHT GROWTH OF MIXED GENITAL COSME. NO POTENTIAL PATHOGENS SEEN. Normal [facility] Comment on above: Performed By: #### U RCX #### [facility] [address] [address] [address] Caitlin Martinez UA (CLEAN/CATCH) MOBILE LAB TECHNICIAN/MICRO I F IND.on 01-15-2022 Bilirubin Ql (U) Negative Normal NEGATIVE [facility] Comment on above: Performed By: #### C BC #### [facility] [address] [address] [address] Caitlin Martinez Clarity (U) CLEAR Normal CLEAR [facility] Comment on above: Performed By: #### C BC #### [facility] [address] [place] [address] Dr. Caitlin Martinez Color (U) LT. YELLOW Normal YELLOW [facility] Comment on above: Performed By: #### C BC #### [facility] [address] [place] [address] Dr. Caitlin Martinez Glucose Ql (U) Negative Normal NEGATIVE [facility] Comment on above: Performed By: #### C BC #### [facility] [address] [place] [address] Dr. Caitlin Martinez Hemoglobin Ql (U) Negative Normal NEGATIVE [facility] Comment on above: Performed By: #### C BC #### [facility] [address] [place] [address] Dr. Caitlin Martinez Ketones Ql (U) Negative Normal NEGATIVE [facility] Comment on above: Performed By: #### C BC #### [facility] [address] [place] [address] Dr. Caitlin Martinez LEUKOCYTES TRACE Abnormal NEGATIVE [facility] Comment on above: Performed By: #### C BC #### [facility] [address] [place] [address] Dr. Caitlin Martinez Nitrite Ql (U) Negative Normal NEGATIVE [facility] Comment on above: Performed By: #### C BC #### [facility] [address] [place] [address] Dr. Caitlin Martinez pH (U) 7.0 [pH] Normal 5-9 [facility] Comment on above: Performed By: #### C BC #### [facility] [address] [place] [address] Dr. Caitlin Martinez SPEC GRAVITY 1.010 Normal 1.005-<=1.[address] [facility] Comment on above: Performed By: #### C BC #### [facility] [address] [place] [address] Dr. Caitlin Martinez UA PROTEIN Negative Normal NEGATIVE/ TRACE [facility] Comment on above: Performed By: #### C BC #### [facility] [address] [place] [address] Dr. Caitlin Martinez UR MICRO IND INDICATED Normal [facility] Comment on above: Performed By: #### C BC #### [facility] [address] [place] [address] Dr. Caitlin Martinez Urobilinogen Qn (U) 0.2 {Barbara'U}/dL Normal 0.2 - 1. 0 [facility] Comment on above: Performed By: #### C BC #### [facility] [address] [place] [address] Dr. Caitlin Martinez URINE MICROSCOPIC ONLYon BACTERIA MODERATE Abnormal NONE SEEN [facility] Comment on above: Performed By: #### C BC #### [facility] [address] [place] [address] Dr. Caitlin Martinez Bacteria identified Cx Nom (U) INDICATED Normal [facility] Comment on above: Performed By: #### C BC #### [facility] [address] [place] [address] Dr. Caitlin Martinez CAST NONE SEEN Normal NONE SEEN [facility] Comment on above: Performed By: #### C BC #### [facility] [address] [place] [address] Dr. Caitlin Martinez Crystals LM Nom (Urine sed) NONE SEEN Normal NONE SEEN [facility] Comment on above: Performed By: #### C BC #### [facility] [address] [place] [address] Dr. Caitlin Martinez Epithelial cells LM Ql (Urine sed) MODERATE Abnormal NONE SEEN /RARE [facility] Comment on above: Performed By: #### C BC #### [facility] [address] [place] [address] Dr. Caitlin Martinez MUCOUS NONE SEEN Normal NONE SEEN [facility] Comment on above: Performed By: #### C BC #### [facility] [address] [place] [address] Dr. Caitlin Martinez RBC NONE SEEN Abnormal 0-2 [facility] Comment on above: Performed By: #### C BC #### [facility] [address] [place] [address] Dr. Caitlin Martinez WBC 2-5 Abnormal NONE SEEN [facility] Comment on above: Performed By: #### C BC #### [facility] [address] [address] [address] Caitlin Martinez US APPENDIXon 01-15-2022 US [...] DAVID BLACKMON Date: 2022-01-15 14:14 Normal [facility] US PREG GROWTHon 01-15-2022 US PREG [...] DAVID BLACKMON Date: 2022-01-15 10:59 Normal [facility] US PREG PLACENTAon 2 US PREG PLACENTA EXAMINATION: US PREG PLACENTA HISTORY: pain ; left lower quadrant pain and contractions COMPARISON: Ultrasound anatomy 09/28/2021 FINDINGS: PLACENTA: Left lateral-anterior. No evidence of abruption or subchorionic hematoma. CERVIX LENGTH: Not measured. HEART RATE: 144 bpm Presentation: Cephalic OTHER: None. IMPRESSION: 1. Single live intrauterine . 2. No placental abruption or subchorionic hematoma. Electronically authenticated by: DAVID ZIABIJESS Date: 2022-01-15 10:57 Normal [facility] UA (CLEAN/CATCH) MOBILE LAB TECHNICIAN/MICRO I F IND.on 12-29-2021 Bilirubin Ql (U) Negative Normal NEGATIVE [facility] Comment on above: Performed By: #### C BC #### [facility] [address] [place] [address] Dr. Caitlin Martinez Clarity (U) CLEAR Normal CLEAR [facility] Comment on above: Performed By: #### C BC #### [facility] [address] [place] [address] Dr. Caitlin Martinez Color (U) LT. YELLOW Normal YELLOW [facility] Comment on above: Performed By: #### C BC #### [facility] [address] [place] [address] Dr. Caitlin Martinez Glucose Ql (U) Negative Normal NEGATIVE [facility] Comment on above: Performed By: #### C BC #### [facility] [address] [place] [address] Dr. Caitlin Martinez Hemoglobin Ql (U) Negative Normal NEGATIVE [facility] Comment on above: Performed By: #### C BC #### [facility] [address] [place] [address] Dr. Caitlin Martinez Ketones Ql (U) Negative Normal NEGATIVE [facility] Comment on above: Performed By: #### C BC #### [facility] [address] [place] [address] Dr. Caitlin Martinez LEUKOCYTES Negative Normal NEGATIVE [facility] Comment on above: Performed By: #### C BC #### [facility] [address] [place] [address] Dr. Caitlin Martinez Nitrite Ql (U) Negative Normal NEGATIVE [facility] Comment on above: Performed By: #### C BC #### [facility] [address] [place] [address] Dr. Caitlin Martinez pH (U) 6.5 [pH] Normal 5-9 [facility] Comment on above: Performed By: #### C BC #### [facility] [address] [place] [address] Dr. Caitlin Martinez SPEC GRAVITY 1.020 Normal 1.005-<=1.[address] [facility] Comment on above: Performed By: #### C BC #### [facility] [address] [place] [address] Dr. Caitlin Martinez UA PROTEIN Negative Normal NEGATIVE/ TRACE [facility] Comment on above: Performed By: #### C BC #### [facility] [address] [place] [address] Dr. Caitlin Martinez UR MICRO IND NOT INDICATED Normal [facility] Comment on above: Performed By: #### C BC #### [facility] [address] [place] [address] Dr. Caitlin Martinez Urobilinogen Qn (U) 1.0 {Barbara'U}/dL Normal 0.2 - 1. 0 [facility] Comment on above: Performed By: #### C BC #### [facility] [address] [place] [address] Dr. Caitlin Martinez US PREG CERVICAL LENGTHon [...] KIRK OATES Date: 2021-12-29 15:53 Normal [facility] UA (CLEAN/CATCH) MOBILE LAB TECHNICIAN/MICRO I F IND.on 12-18-2021 Bilirubin Ql (U) Negative Normal NEGATIVE [facility] Comment on above: Performed By: #### C BC #### [facility] [address] [place] [address] Dr. Caitlin Martinez Clarity (U) CLEAR Normal CLEAR [facility] Comment on above: Performed By: #### C BC #### [facility] [address] [place] [address] Dr. Caitlin Martinez Color (U) YELLOW Normal YELLOW [facility] Comment on above: Performed By: #### C BC #### [facility] [address] [address] [address] Caitlin Martinez Glucose Ql (U) Negative Normal NEGATIVE [facility] Comment on above: Performed By: #### C BC #### [facility] [address] [place] [address] Dr. Caitlin Martinez Hemoglobin Ql (U) Negative Normal NEGATIVE [facility] Comment on above: Performed By: #### C BC #### [facility] [address] [place] [address] Dr. Caitlin Martinez Ketones Ql (U) TRACE Abnormal NEGATIVE [facility] Comment on above: Performed By: #### C BC #### [facility] [address] [place] [address] Dr. Caitlin Martinez LEUKOCYTES Negative Normal NEGATIVE [facility] Comment on above: Performed By: #### C BC #### [facility] [address] [place] [address] Dr. Caitlin Martinez Nitrite Ql (U) Negative Normal NEGATIVE [facility] Comment on above: Performed By: #### C BC #### [facility] [address] [place] [address] Dr. Caitlin Martinez pH (U) 6.0 [pH] Normal 5-9 [facility] Comment on above: Performed By: #### C BC #### [facility] [address] [place] [address] Dr. Caitlin Martinez SPEC GRAVITY 1.025 Normal 1.005-<=1.[address] [facility] Comment on above: Performed By: #### C BC #### [facility] [address] [place] [address] Dr. Caitlin Martinez UA PROTEIN Negative Normal NEGATIVE/ TRACE [facility] Comment on above: Performed By: #### C BC #### [facility] [address] [place] [address] Dr. Caitlin Martinez UR MICRO IND NOT INDICATED Normal [facility] Comment on above: Performed By: #### C BC #### [facility] [address] [place] [address] Dr. Caitlin Martinez Urobilinogen Qn (U) 4 {Barbara'U}/dL Abnormal 0.2 - 1.0 [facility] Comment on above: Performed By: #### C BC #### [facility] [address] [place] [address] Dr. Caitlin Martinez RHOGAMon 11-28-2021 RHOGAM Status Information Issued Quantity 1 Product ID Rh Immune Globulin Lot Number [id number] Issue Date/Time [id number] Normal [facility] Comment on above: Performed By: #### I HORACIO #### [facility] [address] [place] [address] Dr. Caitlin Martinez TYPE AND SCREENon 11-27-2021 TYPE AND SCREEN Negative Normal [facility] Comment on above: Performed By: #### T NS #### [facility] [address] [place] [address] Dr. Caitlin Martinez CULTURE URINEon 11-23-2021 CULTURE URINE Culture Observations : No growth Normal [facility] Comment on above: Performed By: #### I HORACIO #### [facility] [address] [place] [address] Dr. Caitlin Martinez UA (CLEAN/CATCH) MOBILE LAB TECHNICIAN/MICRO I F IND.on 11-23-2021 Bilirubin Ql (U) Negative Normal NEGATIVE [facility] Comment on above: Performed By: #### U RCX #### [facility] [address] [place] [address] Dr. Caitlin Martinez Clarity (U) CLEAR Normal CLEAR [facility] Comment on above: Performed By: #### U RCX #### [facility] [address] [place] [address] Dr. Caitlin Martinez Color (U) LT. YELLOW Normal YELLOW [facility] Comment on above: Performed By: #### U RCX #### [facility] [address] [place] [address] Dr. Caitlin Martinez Glucose Ql (U) Negative Normal NEGATIVE [facility] Comment on above: Performed By: #### U RCX #### [facility] [address] [place] [address] Dr. Caitlin Martinez Hemoglobin Ql (U) Negative Normal NEGATIVE [facility] Comment on above: Performed By: #### U RCX #### [facility] [address] [address] [address] Caitlin Martinez Ketones Ql (U) Negative Normal NEGATIVE [facility] Comment on above: Performed By: #### U RCX #### [facility] [address] [address] [address] Caitlin Martinez LEUKOCYTES SMALL Abnormal NEGATIVE [facility] Comment on above: Performed By: #### U RCX #### [facility] [address] [address] [address] Caitlin Martinez Nitrite Ql (U) Negative Normal NEGATIVE [facility] Comment on above: Performed By: #### U RCX #### [facility] [address] [place] [address] Dr. Caitlin Martinez pH (U) 6.5 [pH] Normal 5-9 [facility] Comment on above: Performed By: #### U RCX #### [facility] [address] [place] [address] Dr. Caitlin Martinez SPEC GRAVITY 1.010 Normal 1.005-<=1.025 [facility] Comment on above: Performed By: #### U RCX #### [facility] [address] [place] [address] Dr. Caitlin Martinez UA PROTEIN Negative Normal NEGATIVE/ TRACE [facility] Comment on above: Performed By: #### U RCX #### [facility] [address] [place] [address] Dr. Caitlin Martinez UR MICRO IND INDICATED Normal [facility] Comment on above: Performed By: #### U RCX #### [facility] [address] [place] [address] Dr. Caitlin Martinez Urobilinogen Qn (U) 0.2 {Barbara'U}/dL Normal 0.2 - 1. 0 [facility] Comment on above: Performed By: #### U RCX #### [facility] [address] [place] [address] Dr. Caitlin Martinez URINE MICROSCOPIC ONLYon BACTERIA TRACE Abnormal NONE SEEN [facility] Comment on above: Performed By: #### U RCX #### [facility] [address] [place] [address] Dr. Caitlin Martinez Bacteria identified Cx Nom (U) INDICATED Normal [facility] Comment on above: Performed By: #### U RCX #### [facility] [address] [place] [address] Dr. Caitlin Martinez CAST SEEN Abnormal NONE SEEN [facility] Comment on above: Performed By: #### U RCX #### [facility] [address] [place] [address] Dr. Caitlin Martinez Crystals LM Nom (Urine sed) SEEN Abnormal NONE SEEN [facility] Comment on above: Performed By: #### U RCX #### [facility] [address] [place] [address] Dr. Caitlin Martinez Epithelial cells LM Ql (Urine sed) RARE Normal NONE SEEN /RARE [facility] Comment on above: Performed By: #### U RCX #### [facility] [address] [place] [address] Dr. Caitlin Martinez MUCOUS TRACE Abnormal NONE SEEN [facility] Comment on above: Performed By: #### U RCX #### [facility] [address] [place] [address] Dr. Caitlin Martinez RBC 0-2 Normal 0-2 [facility] Comment on above: Performed By: #### U RCX #### [facility] [address] [place] [address] Dr. Caitlin Martinez WBC 2-5 Abnormal NONE SEEN [facility] Comment on above: Performed By: #### U RCX #### [facility] [address] [place] [address] Dr. Caitlin Martinez GLUCOSE - 1HRon 11-06-2021 Glucose [Mass/Vol] 131 mg/dL Critically high 74-106 [facility] Comment on above: Performed By: #### I HORACIO #### [facility] [address] [place] [address] Dr. Caitlin Martinez HEMOGRAM AND PLATELon 2021 Hematocrit (Bld) [Volume fraction] 34.2 % Critically low 36.0-48.0 [facility] Comment on above: Performed By: #### C BC #### [facility] [address] [place] [address] Dr. Caitlin Martinez Hemoglobin (Bld) [Mass/Vol] 11.3 g/dL Critically low 12.0-16.0 [facility] Comment on above: Performed By: #### C BC #### [facility] [address] [place] [address] Dr. Caitlin Martinez MCH (RBC) [Entitic mass] 31.7 pg Normal 26.7-34.0 [facility] Comment on above: Performed By: #### C BC #### [facility] [address] [place] [address] Dr. Caitlin Martinez MCHC (RBC) [Mass/Vol] 33.0 g/dL Normal 29.9-35.2 [facility] Comment on above: Performed By: #### C BC #### [facility] [address] [place] [address] Dr. Caitlin Martinez MCV (RBC) [Entitic vol] 96.1 fL Normal 81.0-99.0 [facility] Comment on above: Performed By: #### C BC #### [facility] [address] [place] [address] Dr. Caitlin Martinez PLT 372 103/ul Normal 150-450 [facility] Comment on above: Performed By: #### C BC #### [facility] [address] [place] [address] Dr. Caitlin Martinez RBC 3.56 106/ul Critically low 4.20-5.[address] [facility] Comment on above: Performed By: #### C BC #### [facility] [address] [place] [address] Dr. Caitlin Martinez WBC 10.1 103/ul Normal 4.0-11.0 [facility] Comment on above: Performed By: #### C BC #### [facility] [address] [address] [address] Caitlin Martinez CHLAMYDIA/GONOCOCCUS JONATAN (SW AB/URINE/PAPon 10-31-2021 Chlamydia trachomatis, JONATAN Negative Normal Negative [facility] Comment on above: Performed By: #### C BC #### [facility] [address] [address] [address] Caitlin aMrtinez Neisseria gonorrhoeae, JONATAN Negative Normal Negative [facility] Comment on above: Performed By: #### C BC #### [facility] [address] [address] [address] Caitlin Martinez VAGINITIS/VAGINOSIS DNA PROB Paramjit 10-29-2021 Selena species Negative Normal Negative [facility] Comment on above: Performed By: #### U RCX #### [facility] [address] [place] [address] Dr. Caitlin Martinez Gardnerella vaginalis Negative Normal Negative [facility] Comment on above: Performed By: #### U RCX #### [facility] [address] [address] [address] Caitlin Martinez Trichomonas vaginalis Negative Normal Negative [facility] Comment on above: Performed By: #### U RCX #### [facility] [address] [place] [address] Dr. Caitlin Martinez US PREG INCOMPLETE ANATOMYon [...] DAVID BLACKMON Date: 2021-10-26 12:05 Normal [facility] CBC W MANUAL DIFFon 10-25-19 22 ATYPICAL LYMPH # Normal [facility] Comment on above: Performed By: #### U RCX #### [facility] [address] [place] [address] Dr. Caitlin Martinez ATYPICAL LYMPH % Normal [facility] Comment on above: Performed By: #### U RCX #### [facility] [address] [address] [address] Caitlin Martinez BAND # 0.1 103/ul Normal 0.0-0.3 [facility] Comment on above: Performed By: #### U RCX #### [facility] [address] [place] [address] Dr. Caitlin Martinez BAND % 1 % Normal 0-5 [facility] Comment on above: Performed By: #### U RCX #### [facility] [address] [place] [address] Dr. Caitlin Martinez BASOM # 0.00 103/ul Normal 0.00-0.10 [facility] Comment on above: Performed By: #### U RCX #### [facility] [address] [place] [address] Dr. Caitlin Martinez BASOM % 0.0 % Critically low 0.2-2.0 [facility] Comment on above: Performed By: #### U RCX #### [facility] [address] [place] [address] Dr. Caitlin Martinez BLAST # Normal [facility] Comment on above: Performed By: #### U RCX #### [facility] [address] [place] [address] Dr. Caitlin Martinez BLAST % Normal [facility] Comment on above: Performed By: #### U RCX #### [facility] [address] [place] [address] Dr. Caitlin Martinez CORRECTED WBC Normal 4.0-11.[address] [facility] Comment on above: Performed By: #### U RCX #### [facility] [address] [place] [address] Dr. Caitlin Martinez EOS # 0.12 103/ul Normal 0.00-0.70 [facility] Comment on above: Performed By: #### U RCX #### [facility] [address] [place] [address] Dr. Caitlin Martinez EOS% 1.0 % Normal 0.9-7.0 [facility] Comment on above: Performed By: #### U RCX #### [facility] [address] [address] [address] Caitlin Martinez HCT 31.5 % Critically low 36.0-48.0 [facility] Comment on above: Performed By: #### U RCX #### [facility] [address] [address] [address] Caitlin Martinez HGB 10.5 g/dl Critically low 12.0-16.0 [facility] Comment on above: Performed By: #### U RCX #### [facility] [address] [address] [address] Caitlin Martinez LYMPHM # 0.37 103/ul Critically low 1.20-3.80 [facility] Comment on above: Performed By: #### U RCX #### [facility] [address] [address] [address] Caitlin Martinez LYMPHM% 3.0 % Critically low 20.5-60.0 [facility] Comment on above: Performed By: #### U RCX #### [facility] [address] [address] [address] Caitlin Martinez MCH 31.8 pg Normal 26.7-34.0 [facility] Comment on above: Performed By: #### U RCX #### [facility] [address] [address] [address] Caitlin Martinez MCHC 33.3 g/dl Normal 29.9-35.2 [facility] Comment on above: Performed By: #### U RCX #### [facility] [address] [address] [address] Caitlin Martinez MCV 95.5 fL Normal 81.0-99.0 [facility] Comment on above: Performed By: #### U RCX #### [facility] [address] [address] [address] Caitlin Martinez METAMYELOCYTE # Normal [facility] Comment on above: Performed By: #### U RCX #### [facility] [address] [place] [address] Dr. Caitlin Martinez METAMYELOCYTE % Normal [facility] Comment on above: Performed By: #### U RCX #### [facility] [address] [place] [address] Dr. Caitlin Martinez MONOM# 0.73 103/ul Normal 0.30-0.80 [facility] Comment on above: Performed By: #### U RCX #### [facility] [address] [place] [address] Dr. Caitlin Martinez MONOM% 6.0 % Normal 1.7-12.0 [facility] Comment on above: Performed By: #### U RCX #### [facility] [address] [place] [address] Dr. Caitlin Martinez MPV 9.5 fL Normal 9.5-13.5 [facility] Comment on above: Performed By: #### U RCX #### [facility] [address] [place] [address] Dr. Caitlin Martinez MYELOCYTE # Normal [facility] Comment on above: Performed By: #### U RCX #### [facility] [address] [place] [address] Dr. Caitlin Martinez MYELOCYTE % Normal [facility] Comment on above: Performed By: #### U RCX #### [facility] [address] [place] [address] Dr. Caitlin Martinez NRBC Normal [facility] Comment on above: Performed By: #### U RCX #### [facility] [address] [place] [address] Dr. Caitlin Martinez PLT 275 103/ul Normal 150-450 [facility] Comment on above: Performed By: #### U RCX #### [facility] [address] [place] [address] Dr. Caitlin Martinez RBC 3.30 106/ul Critically low 4.20-5.40 [facility] Comment on above: Performed By: #### U RCX #### [facility] [address] [place] [address] Dr. Caitlin Martinez RDW 13.6 % Normal 11.0-15.0 [facility] Comment on above: Performed By: #### U RCX #### [facility] [address] [place] [address] Dr. Caitlin Martinez SEG # 10.86 103/ul Critically high 1.40-6.50 [facility] Comment on above: Performed By: #### U RCX #### [facility] [address] [place] [address] Dr. Caitlin Martinez SEG % 89.0 % Critically high 43.0-75.0 [facility] Comment on above: Performed By: #### U RCX #### [facility] [address] [place] [address] Dr. Caitlin Martinez WBC 12.2 103/ul Critically high 4.0-11.0 [facility] Comment on above: Performed By: #### U RCX #### [facility] [address] [place] [address] Dr. Caitlin Martinez ER URINE PROFILEon 2 Bilirubin Ql (U) Negative Normal NEGATIVE [facility] Comment on above: Performed By: #### C VDTBH #### [facility] [address] [place] [address] Dr. Caitlin Martinez Clarity (U) SL CLOUDY Abnormal CLEAR [facility] Comment on above: Performed By: #### C VDTBH #### [facility] [address] [place] [address] Dr. Caitlin Martinez Color (U) YELLOW Normal YELLOW [facility] Comment on above: Performed By: #### C VDTBH #### [facility] [address] [place] [address] Dr. Caitlin Martinez ERUAHD A micrscopic examination will be performed if indicated. Normal [facility] Comment on above: Performed By: #### C VDTBH #### [facility] [address] [place] [address] Dr. Caitlin Martinez Glucose Ql (U) Negative Normal NEGATIVE [facility] Comment on above: Performed By: #### C VDTBH #### [facility] [address] [place] [address] Dr. Caitlin Martinez Hemoglobin Ql (U) Negative Normal NEGATIVE [facility] Comment on above: Performed By: #### C VDTBH #### [facility] [address] [place] [address] Dr. Caitlin Martinez Ketones Ql (U) >=80 Abnormal NEGATIVE [facility] Comment on above: Performed By: #### C VDTBH #### [facility] [address] [place] [address] Dr. Caitlin Martinez LEUKOCYTES Negative Normal NEGATIVE [facility] Comment on above: Performed By: #### C VDTBH #### [facility] [address] [place] [address] Dr. Caitlin Martinez Nitrite Ql (U) Negative Normal NEGATIVE [facility] Comment on above: Performed By: #### C VDTBH #### [facility] [address] [place] [address] Dr. Caitlin Martinez pH (U) 6.0 [pH] Normal 5-9 [facility] Comment on above: Performed By: #### C VDTB #### [facility] [address] [place] [address] Dr. Caitlin Martinez SPEC GRAVITY 1.020 Normal 1.005-<=1.025 [facility] Comment on above: Performed By: #### C VDTB #### [facility] [address] [place] [address] Dr. Caitlin Martinez UA PROTEIN Negative Normal NEGATIVE/ TRACE [facility] Comment on above: Performed By: #### C VDTBH #### [facility] [address] [place] [address] Dr. Caitlin Martinez UR MICRO IND NOT INDICATED Normal [facility] Comment on above: Performed By: #### C VDTBH #### [facility] [address] [place] [address] Dr. Caitlin Martinez Urobilinogen Qn (U) 1.0 {Barbara'U}/dL Normal 0.2 - 1. 0 [facility] Comment on above: Performed By: #### C VDTBH #### [facility] [address] [place] [address] Dr. Caitlin Martinez INFL[facility]ENZA A [facility] Normal [facility] Comment on above: Result Comment: Nega tive for Flu B protein antigen. Infection due to Flu B cannot be ruled out. Flu B antigen in the sample may be below the detection limit of the test. Performed By: #### C VDTBH #### [facility] [address] [place] [address] Dr. Caitlin Martinez INFLUENZA A AG Positive Abnormal NEGATIVE SEE COMMENT [facility] Comment on above: Performed By: #### C VDTBH #### [facility] [address] [place] [address] Dr. Caitlin Martinez INFLUENZA B AG Negative Normal NEGATIVE SEE COMMENT [facility] Comment on above: Performed By: #### C VDTBH #### [facility] [address] [place] [address] Dr. Caitlin Martinez INFLUPOS SEE BELOW Normal [facility] Comment on above: Result Comment: NOTE : Live attenuated influenzae vaccine viruses can cause a positive result for a rapid influenza diagnostic test if administered up to 7 days prior to rapid testing. Performed By: #### C VDTBH #### [facility] [address] [place] [address] Dr. Caitlin Martinez INTERNAL CONTROLS Within Normal Limits Normal Wi thin Normal Limits [facility] Comment on above: Performed By: #### C VDTBH #### [facility] [address] [place] [address] Dr. Caitlin Martinez PROF CHEM 8 (BAS METB)on Anion gap [Moles/Vol] 14.4 mmol/L Normal Th [facility] Comment on above: Performed By: #### D IRCMB, ABID #### [facility] [address] [place] [address] Dr. Caitlin Martinez Calcium [Mass/Vol] 8.4 mg/dL Critically low 8.5-10.1 [facility] Comment on above: Performed By: #### D IRCMB, ABID #### [facility] [address] [address] [address] Caitlin Martinez Chloride [Moles/Vol] 101 mmol/L Normal 98-107 [facility] Comment on above: Performed By: #### D IRCMB, ABID #### [facility] [address] [address] [address] Caitlin Martinez CO2 [Moles/Vol] 19.7 mmol/L Critically low 21.0-32.0 [facility] Comment on above: Performed By: #### D IRCMB, ABID #### [facility] [address] [address] [address] Caitlin Martinez Creatinine [Mass/Vol] 0.55 mg/dL Normal 0.55-1.02 [facility] Comment on above: Performed By: #### D IRCMB, ABID #### [facility] [address] [address] [address] Caitlin Martinez EGFR-AF [place]IZ[place] >60 Normal >=60 [facility] Comment on above: Performed By: #### D IRCMB, ABID #### [facility] [address] [address] [address] Caitlin Martinez EGFR-NON AF [place]IZ[place] >60 Normal >=60 [facility] Comment on above: Performed By: #### D IRCMB, ABID #### [facility] [address] [address] [address] Caitlin Martinez Glucose [Mass/Vol] 91 mg/dL Normal 74-106 [facility] Comment on above: Performed By: #### D IRCMB, ABID #### [facility] [address] [address] [address] Caitlin Martinez Potassium [Moles/Vol] 3.1 mmol/L Critically low 3.5-5.1 [facility] Comment on above: Performed By: #### D IRCMB, ABID #### [facility] [address] [address] [address] Caitlin Martinez Sodium [Moles/Vol] 132 mmol/L Critically low 136-145 Th [facility] Comment on above: Performed By: #### D IRCMB, ABID #### [facility] [address] [place] [address] [address]. Caitlin Martinez Urea nitrogen [Mass/Vol] 7.0 mg/dL Normal 7.0-18.0 [facility] Comment on above: Performed By: #### D IRCMB, ABID #### [facility] [address] [id number] Caitlin Martinez Urea nitrogen/Creatinine [Mass ratio] 12.7 mg/mg Normal [facility] Comment on above: Performed By: #### D IRCMB, ABID #### [facility] [address] [address] [address] Caitlin Martinez US PREG ANATOMY SINGLEon [...] by: DAVID BLACKMON Date: 2021-09-28 09:17 Normal [facility] CHEMISTRYOrdered By: SYSTEM SYSTEM on 06-21-2021 [place] [address] m[IU]/mL High 1 - 3 mIU/mL [facility] Remisol XR LUMBAR SPINE 2-3 VIEWS (S [...] gas pattern is nonobstructive. There is a ntehhimz-hi-dxfvz amount of stool burden. IMPRESSION: No malalignment. No acute compression deformity. Naqtjxbh-qo-aqeku amount of stool burden. /formerly [facility] Workstation ID: [id number] Dictated by: LUBA GARCÍA on [facility] Mar 05, 2020 4:09:51 PM EDT Transcribed by: KELVIN GUADALUPE on [facility] Mar 05, 2020 4:17:18 PM EDT Finalized by: LUBA GARCÍA on [facility] Mar 05, 2020 7:52:11 PM EDT Normal [facility] Comment on above: Order Comment: Injur y/Trauma or Illness?:Illness/Other How long have you had these symptoms (acute/chronic)?:Chronic Reason for exam?:low back pain History of cancer?:n Surgeries, chemotherapy, or radiation?:n Type of Exam?:Initial Additional signs and symptoms?:fibromyalgia XR Lumbar Spine 2-3 Views (S tandard)on 03-05-2020 No malalignment. No acute compression deformity. Pqahazgb-ao-vyuuz amount of stool burden. [facility] Workstation ID: [id number] [facility] EXAMINATION: XR LUMBAR SPINE 2-3 VIEWS (STANDARD) [...] gas pattern is nonobstructive. There is a fwztcvjh-yp-pwtkv amount of stool burden. [facility], Rad In [facility] - 03/05/2020 7:55 PM EDT EXAMINATION: XR [...] gas pattern is nonobstructive. There is a cikvjzti-qq-kiwei amount of stool burden. IMPRESSION: No malalignment. No acute compression deformity. Xdlikbmb-qx-dpoxx amount of stool burden. [facility] Workstation ID: [id number] [facility] CNOVon 10-28-2018 CNOV Office Visit (VASSMN ) SANDY GODINEZ ([id number]) 1995 F Date Time Provider Department 10/28/18 [...] REFERRING PROVIDER: Farrah Garcia MD [address] [facility] [id number] Consult requested for an opinion regarding the [...] TIME: 12:44 PM Referring Provider: FARRAH GARCIA [[id number]] Allergies As of Date: 10/28/2018 (No Known [...] by WARREN RODRIGUEZ MD on 10/29/[address] [facility] PROGRESSon 10-28-2018 Protein mass conc HNO ID: [id number] Author: Warren Rodriguez Service: ? Author Type: Physician Type: Progress Notes Filed: 10/29/2018 3:03 PM Note Text: VASCULAR SURGERY INITIAL CONSULT SERVICE DATE: 10/28/2018 SERVICE TIME: 12:44 PM PRIMARY CARE PHYSICIAN: Farrah Garcia MD REFERRING PROVIDER: Farrah Garcia MD [address] [facility] [id number] Consult requested for an opinion regarding the [...] right carotid stenosis. Patient recently evaluated in [facility] ED after she became dizzy and light [...] October 28, 2018 TIME: 12:44 PM Normal [facility] Vital Signs Date Time Vital Sign Value Performing Clinician Faci nik 07-19-2023 09:31-0500 Body mass index (BMI) [Ratio] 26.79 kg/m2 [facility] 07-19-2023 09:31-0500 Body weight 73.03 kg [facility] 07-19-2023 09:31-0500 Diastolic blood pressure 72 mm[Hg] [facility] 07-19-2023 09:31-0500 Systolic blood pressure 118 mm[Hg] [facility] Encounters Encounter Date Encounter Type Care Provider Facility Start: 07-19-2023 End: 07-19-2023 ambulatory JOSE MIGUEL CAMPUZANO Not Available Start: 07-19-2023 End: 07-19-2023 Office outpatient visit 5 minutes [facility] Comment on above: GA: 9w0d Start: 07-02-2023 End: 07-02-2023 ambulatory JOSE MIGUEL CAMPUZANO Not Available Start: 05-02-2023 ambulatory Royer Layne acility:[facility] Start: 07-30-2022 End: 07-31-2022 ambulatory DUARTE VALDERRAMA Facility:[facility] Start: 07-23-2022 End: 07-23-[address] JOSE MIGUEL CAMPUZANO Facility:[facility] Start: 04-18-2022 End: 04-19-2022 ambulatory DUARTE VALDERRAMA Facility:[facility] Start: 02-10-2022 End: 02-11-[address] LYLA SALGADO Facility:[facility] Start: 02-08-2022 End: 02-10-2022 Evaluation and management of inpatient DR JOSE MIGUEL CAMPUZANO Facility:[facility] Start: 02-05-2022 End: 02-05-[address] JOSE MIGUEL CAMPUZANO Facility:[facility] Start: 02-03-2022 End: 02-03-2022 ambulatory KRISTINA VELEZ Facility:[facility] Start: 01-25-2022 End: 01-26-[address] PRASANNA KAMINSKI Facility:[facility] Start: 01-15-2022 End: 01-17-[address] PRASANNA KAMINSKI Facility:[facility] Start: 12-30-2021 End: 12-30-[address] JOSE MIGUEL CAMPUZANO Facility:[facility] Start: 12-29-2021 End: 12-29-[address] JOSE MIGUEL CAMPUZANO Facility:[facility] Start: 12-18-2021 End: 12-18-[address] PRASANNA KAMINSKI Facility:[facility] Start: 11-27-2021 End: 11-28-[address] JOSE MIGUEL CAMPUZANO Facility:[facility] Start: 11-23-2021 End: 11-23-[address] DOCTOR BAHENA Facility:[facility] Start: 11-06-2021 End: 11-07-[address] DOCTOR BAHENA Facility:[facility] Start: 10-29-2021 End: 10-29-[address] DOCTOR BAHENA Facility:[facility] Start: 10-26-2021 End: 10-26-[address] DOCTOR BAHENA Facility:[facility] Start: 10-26-2021 End: 10-27-[address] DOCTOR BAHENA Facility:[facility] Start: 10-24-2021 End: 10-24-[address] DOCTOR BAHENA Facility:[facility] Start: 09-28-2021 End: 09-29-[address] JOSE MIGUEL CAMPUZANO Facility:[facility] Start: 09-16-2021 End: 09-16-2021 ambulatory ILIR JUAREZ Facility:[facility] Start: 06-21-2021 End: 09-19-2021 Recurring Jose Miguel CAMPUZANO [facility] Start: 03-05-2020 End: 03-06-2020 Patient encounter procedure [facility] Start: 03-05-2020 End: 03-05-2020 Subsequent hospital visit by physician [facility] Work Phone: [facility] Comment on above: Chronic low back sharon n, unspecified back pain laterality, unspecified whether sciatica present Procedures Date Procedure Procedure Detail Performing Clinician Start: 07-19-2023 End: 07-19-2023 Urnls dip stick/tablet rgnt non-auto w/o micrscp Jose Miguel Campuzano DO Work Phone: Start: 02-08-2022 Delivery of Products of Conception, [...] Treatment Date Care Activity Detail Author Start: 08-19-2023 End: 08-19-2023 Patient encounter procedure 08/19/2023 11:10 AM EST Routine [facility] [address] [place] [id number] Jose Miguel Campuzano, DO [address] [place] [address] [facility] Start: 07-19-2023 End: 07-19-2024 ABO/Rh ABO/Rh Lab Routine Missed menses Expected: 07/19/2023 (Approximate), Expires: 07/19/2024 [facility] Comment on above: Expected: 07/19/2023 (Approximate), Expires: 07/19/2024 Start: 07-19-2023 End: 07-19-2024 Blood type and Indirect antibody screen panel - Blood Type and screen Lab Routine Missed menses Expected: 07/19/2023 (Approximate), Expires: 07/19/2024 [facility] Work Phone: Comment on above: Expected: 07/19/2023 (Approximate), Expires: 07/19/2024 Start: 07-19-2023 End: 07-19-2024 US Pelvis transvaginal US OB transvaginal Imaging Routine Missed menses Expected: 07/19/2023 (Approximate), Expires: 07/19/2024 [facility] Comment on above: Expected: 07/19/2023 (Approximate), Expires: 07/19/2024 Start: 02-16-2020 Influenza vaccinatio n given Sequential Influenza Vaccine (#1) [facility] Start: 2014 Hepatitis C antibody , confirmatory test Hepatitis C Screening [facility] Start: 08-31-2011 HIV screening HIV Screening [facility] Start: 08-31-2007 Vaccination for [place] papillomavirus HPV Vaccines (1 - 2-dose series) [facility] Start: 08-31-1999 History and physical examination, annual for health maintenance Wellness Visit [facility] Start: 1996 Screening for Chlamy tristan trachomatis Chlamydia Screening [facility] Start: 1996 Screening for malign ant neoplasm of cervix Pap Smear [facility] Start: 1996 Tetanus vaccination Tetanus: Every 1 0yrs [facility] Bacteria identified in Urine by Culture Urine culture Microbiology Routine Missed menses Ordered: 07/19/2023 [facility] Comment on above: Ordered: 07/19/2023 CBC W Auto Different ial panel - Blood CBC and differential Lab Routine Missed menses Ordered: 07/19/2023 [facility] Comment on above: Ordered: 07/19/2023 Hemoglobin A1c measurement Hemoglobin A1c Lab Routine Missed menses Ordered: 07/19/2023 [facility] Comment on above: Ordered: 07/19/2023 Hepatitis B virus knight rface Ag [Presence] in Serum or Plasma by Immunoassay Hepatitis B surface antigen Lab Routine Missed menses Ordered: 07/19/2023 [facility] Comment on above: Ordered: 07/19/2023 Hepatitis C virus Ab [Presence] in Serum or Plasma by Immunoassay Hepatitis C antibody Lab Routine Missed menses Ordered: 07/19/2023 [facility] Comment on above: Ordered: 07/19/2023 HIV-1/HIV-2 antigen/antibody combination immunoassay HIV-1 and HIV-2 antibodies Lab Routine Missed menses Ordered: 07/19/2023 [facility] Comment on above: Ordered: 07/19/2023 Reagin Ab [Presence] in Serum by RPR RPR Lab Routine Missed menses Ordered: 07/19/2023 [facility] Comment on above: Ordered: 07/19/2023 Rubella antibody, IgG Rubella an tibody, IgG Lab Routine Missed menses Ordered: 07/19/2023 [facility] Comment on above: Ordered: 07/19/2023 Payers Date Payer Category Payer Self-pay 2022 Medicaid [employer] [place] [id number] 2022-Present [address] [place] [address] [id number] 1995 Unknown [id number] [id number]3 1995 Unknown [id number] 2.16.840.1.333228.3.579.2.593 1996 Unknown [id number] 2.16.840.1.627017.3.579.2.593 1996 Unknown [id number] 2.16.840.1.132690.3.579.2.593 1996 Unknown [id number] 2.16.840.1.040891.3.579.2.593 1996 Unknown [id number] 2.16.840.1.816635.3.579.2.593 1996 Unknown [id number] 2.16.840.1.646699.3.579.2.593 1996 Unknown [id number] 2.16.840.1.710879.3.579.2.593 1996 Unknown [id number] 2.16.840.1.357965.3.579.2.593 1996 Unknown [id number] 2.16.840.1.541835.3.579.2.593 1996 Unknown [id number] 2.16.840.1.841219.3.579.2.593 1996 Unknown [id number] 2.16.840.1.918051.3.579.2.593 1996 Unknown [id number] 2.16.840.1.523035.3.579.2.593 1996 Unknown [id number] 2.16.840.1.435654.3.579.2.593 1996 Unknown [id number] 2.16.840.1.897172.3.579.2.593 1996 Unknown [id number] 2.16.840.1.690928.3.579.2.593 1996 Unknown [id number] 2.16.840.1.758744.3.579.2.593 1996 Unknown [id number] 2.16.840.1.664482.3.579.2.593 1996 Unknown [id number] 2.16.840.1.344224.3.579.2.593 1996 Unknown [id number] 2.16.840.1.730283.3.579.2.593 1996 Unknown [id number] 2.16.840.1.759523.3.579.2.593 1996 Unknown [id number] 2.16.840.1.231348.3.579.2.593 1996 Unknown [id number] 2.16.840.1.106904.3.579.2.1259 1996 Unknown [id number] 2.16.840.1.962229.3.579.2.1259 1959 Unknown [id number] 1959 Unknown [id number] Unknown COMMERCIAL COMME RCIAL MISCELLANEOUS [id number] Effective for all dates [id number]. [id number] Unknown [id number] Unknown [id number] 2.16.840.1.660484.3.579.2.531 Social History Date Type Detail Facility Tobacco smoking stat [facility] Unknown if ever smoked [facility] Sex Assigned At Not on file [facility] Start: 12-07-2022 Sex Assigned At Female [facility] Start: 12-07-2022 Tobacco smoking status PAIS Never smoked tobacco [facility] Start: 07-19-2023 Alcohol intake Current drinker of alcohol (finding) [facility] Start: 12-07-2022 History of Social function [facility] Start: 12-07-2022 Alcohol Comment 1-2 drinks less than monthly in the past year [facility] Start: 05-31-2023 [facility] Start: 1995 Sex Assigned At Female [facility] Start: 11-29-2022 Gender identity Identifies as female gender (finding) [facility] Start: 11-29-2022 Sexual orientation Heterosexual (finding) [facility] History of Present illness Narrative 07-19-2023 Cori DanielCELINA - 07/19/2023 9:00 AM EST Note Date & Type Note Facility 07-19-2023 History of Presen t illness Narrative Reason for Appointment: Patient ID: Sandy Godinez is a 27 y.o. female who presents for Initial Visit Patient presents today for a Nurse OB Intake appointment. Patient is 9w0d with a Estimated Date of Delivery: 02/21/24 OB History Para Term AB Living 4 2 1 2 SAB IAB Ectopic Multiple Live Births # Outcome Date GA Lbr Ricky/2nd Weight Sex Delivery Anes PTL Lv 4 Current 3 Para 02/08/22 6 lb 13 oz M Vag-Spont 2 Para 02/27/19 7 lb 3 oz F Vag-Spont 1 AB 07/2017 Comments: Blighted ovum . D/C with [facility] Comments Last pap smear 12/26/2020 neg Current Medications: has a current medication list which includes the following prescription(s): ferrous sulfate, ondansetron odt, and valacyclovir. Medical History: Active Ambulatory Problems Diagnosis Date Noted No Active Ambulatory Problems Resolved Ambulatory Problems Diagnosis Date Noted No Resolved Ambulatory Problems Past Medical History: Diagnosis Date 6 weeks follow-up Acute depression (CMS/HCC) BMI 30.0-30.9,adult Breast lump on right side at 7 o'clock position Fibromyalgia Genital herpes Hematuria Hip pain, right Insomnia, idiopathic Miscarriage 2018 Spondyloarthropathy Family History Problem Relation Name Age of Onset Hypertension Mother Cancer Mother either hodgkin's or non-hodgkin's lymphoma , thyroid cancer Mental illness Father ADD / ADHD Brother Hypertension Maternal Grandmother Heart disease Maternal Grandmother Hypertension Maternal Grandfather Hypertension Paternal Grandmother Mental illness Paternal Grandmother Social History Tobacco Use Smoking status: Never Smokeless tobacco: Not on file Substance Use Topics Alcohol use: Yes Comment: 1-2 drinks less than monthly in the past year Drug use: Never Past Surgical History: Procedure Laterality Date DILATION AND CURETTAGE 2018 RI TONSILLECTOMY & ADENOIDECTOMY AGE 13/> 2015 WISDOM TOOTH EXTRACTION Allergies Allergen Reactions Wound Dressing Adhesive Itching Vitals: Estimated body mass index is 27.46 kg/m as calculated from the following: Height as of 12/04/22: 5' 5 . Weight as of 07/02/23: 165 lb. BP: Patient's last menstrual period was 05/17/2023 (exact date). Assessment/Plan Diagnoses and all orders for this visit: Missed menses - Type and screen; Future - ABO/Rh; Future - CBC and differential - Hemoglobin A1c - RPR - Rubella antibody, IgG - Hepatitis B surface antigen - Hepatitis C antibody - HIV-1 and HIV-2 antibodies - Urine culture - US OB transvaginal; Future - POCT , urine manually resulted - POCT urinalysis dipstick manually resulted Nurse Note: Pt complaining of nausea and constipation. Pt was advised to drink 8+ glasses of water along with colace. Rx was sent for nausea to pharmacy. Pt desires [facility] and understands to have it done at 10 weeks along w/her labs. Follow Up: Patient is to have labs drawn at directed and return to office for initial OB appointment with provider. Patient may call office as needed with any concerns or questions. Nurse Visit Completed by: Cori Daniel MA documented in this encounter [facility] Clinical Note 01-16-2022 Note Date & [...] by: Cecelia FOOTE Date: 2022-01-16 21:33 [facility] Clinical Note 01-16-2022 Note Date & [...] by: Cecelia FOOTE Date: 2022-01-16 21:33 [facility] Clinical Note 01-15-2022 Note Date & [...] authenticated by: IGOR DIAZ Date: 2022-01-15 10:10 [facility] Evaluation + Plan note Note Date & Type Note Facility Evaluation + Plan note No data available for this section [facility] Evaluation note Note Date & Type Note Facility Evaluation note Diagnosis Missed menses Nausea Nausea alone documented in this encounter [facility] Hospital Discharge instructions Note Date & Type Note Facility Hospital Discharge instructions No data available for this section 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 DATE CREATED AUTHOR AUTHOR'S ORGANIZ ATION 03/21/2020 [facility] DATE CREATED AUTHOR AUTHOR'S ORGANIZ ATION 08/04/2022 [facility] DATE CREATED AUTHOR AUTHOR'S ORGANIZ ATION 09/06/2022 [facility] DATE CREATED AUTHOR AUTHOR'S ORGANIZ ATION 07/13/2023 [facility] DATE CREATED AUTHOR AUTHOR'S ORGANIZ ATION 07/20/2023 [facility] EPIC Reason for Visit (unrecogniz ed section and content) Reason Comments Initial Visit FOR RECORDS PERTAINING TO PATIENTS WHO ARE [...] BE BASED ON THE PRIMARY CLINICAL RECORDS. [facility] [employer] [facility]. provides no warranty or guarantee of the accuracy or completeness of information in this document.
[2023-07-25 16:14] LABS: Basophils Absolute Auto 0.1 10^3/uL (0.0-0.1); Basophils Percent Auto 0.7 % (0.2-2.0); Eosinophils Absolute Auto 0.2 10^3/uL (0.0-0.7); Eosinophils Percent Auto 2.6 % (0.9-7.0); Hemoglobin 12.8 g/dL (12.0-16.0); Immature Granulocytes Abs Auto 0.01 10^3/uL (0.00-0.03); Immature Granulocytes Pct Auto 0.1 % (0.0-0.5); Lymphocytes Absolute Auto 2.2 10^3/uL (1.2-3.8); Lymphocytes Percent Auto 26.1 % (20.5-60.0); Mean Corpuscular HGB Conc 32.8 g/dL (29.9-35.2); Mean Corpuscular Hemoglobin 28.6 pg (26.7-34.0); Mean Corpuscular Volume 87.2 fL (81.0-99.0); Mean Platelet Volume 10.1 fL (9.5-13.5); Monocytes Absolute Auto 0.5 10^3/uL (0.3-0.8); Monocytes Percent Auto 5.7 % (1.7-12.0); Neutrophils Absolute Auto 5.5 10^3/uL (1.4-6.5); Neutrophils Percent Auto 64.8 % (43.0-75.0); Platelet Count 340 10^3/uL (150-450); Red Blood Count 4.47 10^6/uL (4.20-5.40); Red Cell Distribution Width 13.4 % (11.0-15.0); White Blood Count 8.4 10^3/uL (4.0-11.0)
[2023-07-25 16:17] LABS: Estimated Average Glucose 97 mg/dL
[2023-07-25 16:40] LABS: Thyroid Stimulating Hormone 0.378 uIU/mL (0.358-3.740)
[2023-07-25 16:50] LABS: BOX Test Sent Out Y
[2023-07-27 08:11] LABS: HBsAg Screen Negative (Negative); HIV Ab/p24 Ag Screen Non Reactive (Non Reactive)
[2023-07-27 09:11] LABS: HCV Ab Non Reactive (Non Reactive)
[2023-07-27 10:11] LABS: Rapid Plasma Reagin, Quant Non Reactive titer (NonRea<1:1); Rubella Antibodies, IgG 6.21 index (Immune >0.99)
== END 2023-07-25 15:38 | disposition home or self-care (01) ==
LOC: LAB 15:39
PROVIDERS: PCP Nurse Practitioner Family; Visit Provider Obstetrics & Gynecology
DX: N92.6 Irregular menstruation, unspecified (principal); Z36.0 Encounter for antenatal screening for chromosomal anomalies
CPT/HCPCS: 36415; 83036; 84443; 85025; 86592; 86762; 86803; 86850; 86900; 86901; 87086; 87340; 87389

== ENCOUNTER 2023-08-01 14:30 | Emergency (ER) | payer OTHER, SELFPAY ==
[2023-08-01 14:43] VITALS: BP 132/71; PULSE 89; RESP 20; TEMP 36.8; O2SAT 99; BMI 28.2
--- NOTE | 2023-08-01 14:52 | ECG_ITS ---
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
--- NOTE | 2023-08-01 14:53 | ED_ITS ---
HPI - General Chief complaint: Abdominal Pain Stated complaint: DIZZINESS/BACK PAIN 11 WKS Time Seen by Provider: 08/01/23 14:36 Source: patient Mode of arrival: walk-in Limitations: no limitations History of Present Illness HPI Narrative: 27-year-old female presents for low back pain and dizziness. She has felt this way for 3 days. She is about 11 weeks and has had no vaginal bleeding. She does not complain of lower abdominal pain. No trauma or fever. No vomiting or diarrhea. Symptoms are continuous. She called her office services associate's office and they sent her here. Related Data Home Medications Medication Instructions Recorded Confirmed ondansetron 4 mg disintegrating 4 mg PO Q6H PRN nausea and vomiting 08/01/23 08/01/23 tablet Previous Rx's Medication Instructions Recorded amoxicillin 875 mg-potassium 1 tab PO Q12H #14 tabs 06/29/23 clavulanate 125 mg tablet Allergies Allergy/AdvReac Type Severity Reaction Status Date / Time No Known Drug Allergies Allergy Verified 01/29/23 16:30 Review of Systems ROS Narrative A ten point review of systems is negative except as noted above. PFSH PFSH Social History Smoking status: Never smoker Exam Narrative Exam Narrative: Nurses note and vital signs reviewed and patient is not hypoxic. General: The patient appears well and in no apparent distress. Patient is resting comfortably on cart. Skin: Warm, dry, no pallor noted. There is no rash noted. Head: Normocephalic, atraumatic Eye: Normal conjunctiva, no drainage Ears, Nose, Mouth, and Throat: oral mucosa is moist. Nares patent. Cardiovascular: Regular Rate and Rhythm Respiratory: Patient is in no distress, no accessory muscle use, lungs are clear to auscultation, no wheezing, rales or rhonchi Back: non-tender, no bruise or rash. No swelling in the pilonidal region. No erythema. GI: no tenderness to palpation, no masses appreciated. No rebound, guarding, or rigidity noted. Musculoskeletal: The patient has no evidence of calf tenderness, no pitting edema, symmetrical pulses noted bilaterally Neurological: A&O, normal speech Psychiatric: Cooperative Constitutional Vital Signs, click to edit/add: Last Vital Signs Temp 98.3 F 08/01/23 14:43 Pulse 89 08/01/23 14:43 Resp 20 08/01/23 14:43 BP 132/71 08/01/23 14:43 Pulse Ox 99 08/01/23 14:43 O2 Del Method Nasal Cannula 08/01/23 14:43 Course Vital Signs Vital signs: Vital Signs Temperature 98.3 F 08/01/23 14:43 Pulse Rate 89 08/01/23 14:43 Respiratory Rate 20 08/01/23 14:43 Blood Pressure 132/71 08/01/23 14:43 Pulse Oximetry 99 08/01/23 14:43 Oxygen Delivery Method Nasal Cannula 08/01/23 14:43 Temperature 98.3 F 08/01/23 14:43 Pulse Rate 89 08/01/23 14:43 Respiratory Rate 20 08/01/23 14:43 Blood Pressure 132/71 08/01/23 14:43 Pulse Oximetry 99 08/01/23 14:43 Oxygen Delivery Method Nasal Cannula 08/01/23 14:43 MDM - OB/Uterine Contractions MDM Narrative Medical decision making narrative: The workup here is negative. She has a normal physical exam and no evidence of UTI. There is no evidence of pilonidal abscess. I have discussed the case with Dr. Campuzano and his office will see her tomorrow. Treatment diagnosis and follow- up were discussed with the patient. She has no vaginal bleeding. She has had a previous ultrasound during this which showed a 1.5 cm subchorionic hematoma. There is no indication for emergent ultrasound. Differential Diagnosis Differential diagnosis: Likely other (Musculoskeletal pain, pilonidal abscess, UTI) Lab Data Attestation: I reviewed the patient's lab results. Labs: Lab Results 08/01/23 08/01/23 08/01/23 Range/Units 14:53 14:55 15:55 WBC 8.0 (4.0-11.0) 10^3/uL RBC 4.54 (4.20-5.40) 10^6/uL Hgb 13.1 (12.0-16.0) g/dL Hct 40.1 (36.0-48.0) % MCV 88.3 (81.0-99.0) fL MCH 28.9 (26.7-34.0) pg MCHC 32.7 (29.9-35.2) g/dL RDW 13.9 (11.0-15.0) % Plt Count 316 (150-450) 10^3/uL MPV 10.3 (9.5-13.5) fL Neut % (Auto) 57.4 (43.0-75.0) % Lymph % (Auto) 30.6 (20.5-60.0) % [place] % (Auto) 7.8 (1.7-12.0) % Eos % (Auto) 3.0 (0.9-7.0) % Baso % (Auto) 0.9 (0.2-2.0) % Neut # (Auto) 4.6 (1.4-6.5) 10^3/uL Lymph # (Auto) 2.4 (1.2-3.8) 10^3/uL [place] # (Auto) 0.6 (0.3-0.8) 10^3/uL Eos # (Auto) 0.2 (0.0-0.7) 10^3/uL Baso # (Auto) 0.1 (0.0-0.1) 10^3/uL Abs Immat Gran (auto) 0.02 (0.00-0.03) 10^3/uL Imm/Tot Granulo (auto) 0.3 (0.0-0.5) % Sodium 139 (136-145) mmol/L Potassium 3.7 (3.5-5.1) mmol/L Chloride 102 (98-107) mmol/L Carbon Dioxide 27.2 (21.0-32.0) mmol/L Anion Gap 13.5 BUN 4.0 L (7.0-18.0) mg/dL Creatinine 0.47 L (0.55-1.02) mg/dL Est GFR ( Amer) >60 (>=60) Est GFR (Non-Af Amer) >60 (>=60) BUN/Creatinine Ratio 8.5 Glucose 82 (74-106) mg/dL Calcium 9.2 (8.5-10.1) mg/dL Urine Color Lt. yellow (YELLOW) Urine Clarity Clear (CLEAR) Urine pH 6.5 (5.0-9.0) Ur Specific [place] 1.010 (1.005-1.025) Urine Protein Negative (NEG/TRACE) mg/dL Urine Glucose (UA) Negative (NEGATIVE) mg/dL Urine Ketones Negative (NEGATIVE) mg/dL Urine Occult Blood Trace-i (NEGATIVE) Urine Nitrite Negative (NEGATIVE) Urine Bilirubin Negative (NEGATIVE) Urine Urobilinogen 1.0 (0.2-1.0) EU/dL Ur Leukocyte Esterase Trace A (NEGATIVE) Urine RBC 0-2 (0-2) #/HPF Urine WBC None seen (NONE SEEN) #/HPF Ur Squamous Epith Cells Few A (NONE/RARE) #/LPF Urine Crystals None seen (None Seen) #/HPF Urine Bacteria Small A (NONE SEEN) #/HPF Urine Casts None seen (NONE SEEN) #/LPF Urine Mucus None seen (NONE SEEN) Influenza Type A Ag Negative Influenza Type B Ag Negative SARS-CoV-2 Ag (CV2AG) Negative (NEGATIVE) Discharge Plan Discharge Chief Complaint: Abdominal Pain Clinical Impression: Low back pain Patient Disposition: Home, Self-Care Time of Disposition Decision: 16:27 Condition: Good Mode of Transportation: Private Vehicle Prescriptions / Home Meds: No Action amoxicillin-pot clavulanate 875-125 mg tablet 1 tab PO Q12H Qty: 14 0RF ondansetron 4 mg tablet,disintegrating 4 mg PO Q6H PRN (Reason: nausea and vomiting) Instructions: Acute Low Back Pain (ED) Additional Instructions: Dr. Campuzano's office will see you tomorrow. Call to determine the time. Stand Alone Forms: Portal Instructions Referrals: DUARTE VALDERRAMA [Primary Care Provider] - 1 week
[2023-08-01] MEDS: 0.9 % SODIUM CHLORIDE 1,000 ML 1000 ML IV (15:13)
[2023-08-01 15:30] LABS: Basophils Absolute Auto 0.1 10^3/uL (0.0-0.1); Basophils Percent Auto 0.9 % (0.2-2.0); Eosinophils Absolute Auto 0.2 10^3/uL (0.0-0.7); Hematocrit 40.1 % (36.0-48.0); Hemoglobin 13.1 g/dL (12.0-16.0); Immature Granulocytes Abs Auto 0.02 10^3/uL (0.00-0.03); Immature Granulocytes Pct Auto 0.3 % (0.0-0.5); Lymphocytes Absolute Auto 2.4 10^3/uL (1.2-3.8); Lymphocytes Percent Auto 30.6 % (20.5-60.0); Mean Corpuscular HGB Conc 32.7 g/dL (29.9-35.2); Mean Corpuscular Hemoglobin 28.9 pg (26.7-34.0); Mean Corpuscular Volume 88.3 fL (81.0-99.0); Mean Platelet Volume 10.3 fL (9.5-13.5); Monocytes Absolute Auto 0.6 10^3/uL (0.3-0.8); Monocytes Percent Auto 7.8 % (1.7-12.0); Neutrophils Absolute Auto 4.6 10^3/uL (1.4-6.5); Neutrophils Percent Auto 57.4 % (43.0-75.0); Platelet Count 316 10^3/uL (150-450); Red Blood Count 4.54 10^6/uL (4.20-5.40); Red Cell Distribution Width 13.9 % (11.0-15.0)
[2023-08-01 15:32] VITALS: PULSE 79
[2023-08-01 15:38] LABS: Anion Gap 13.5; BUN Creatinine Ratio 8.5; Calcium 9.2 mg/dL (8.5-10.1); Carbon Dioxide 27.2 mmol/L (21.0-32.0); Chloride 102 mmol/L (98-107); Estimated GFR (African America >60 (>=60); Estimated GFR (Non-African Ame >60 (>=60); Glucose 82 mg/dL (74-106); Potassium 3.7 mmol/L (3.5-5.1); Sodium 139 mmol/L (136-145)
[2023-08-01 15:45] LABS: Bilirubin Urine NEGATIVE (NEGATIVE); Blood Urine TRACE-I (NEGATIVE); Clarity Urine CLEAR (CLEAR); Color Urine LT. YELLOW (YELLOW); Glucose Urine UA NEGATIVE (NEGATIVE); Ketones Urine NEGATIVE (NEGATIVE); Leukocyte Esterase Urine TRACE (NEGATIVE); Nitrite Urine NEGATIVE (NEGATIVE); Protein Urine NEGATIVE (NEG/TRACE); pH Urine 6.5 (5.0-9.0)
[2023-08-01 15:58] LABS: Bacteria Urine SMALL #/HPF (NONE SEEN); Cast Seen? NONE SEEN #/LPF (NONE SEEN); Crystals Seen? None Seen #/HPF (None Seen); Mucus Urine NONE SEEN (NONE SEEN); RBC Urine 0-2 #/HPF (0-2); Squamous Epithelial Cell Urine FEW #/LPF (NONE/RARE); WBC Urine NONE SEEN #/HPF (NONE SEEN)
[2023-08-01 16:14] LABS: Influenza Virus A Antigen Negative; Influenza Virus B Antigen Negative; Internal Control Within Normal Limits
[2023-08-01 16:15] LABS: SARS-CoV-2 Ag NEGATIVE (NEGATIVE)
== END 2023-08-01 16:36 | disposition home or self-care (01) ==
PROVIDERS: Emergency Provider Emergency Medicine; PCP Nurse Practitioner Family
DX: O26.891 Other specified pregnancy related conditions, first trimester (principal); M54.50 Low back pain, unspecified; Z3A.11 11 weeks gestation of pregnancy; Z20.822 Contact with and (suspected) exposure to COVID-19
CPT/HCPCS: 36415; 80048; 81001; 85025; 87804; 87811; 93005; 99285

== ENCOUNTER 2023-08-06 10:48 | Outpatient (OUT) | payer OTHER, SELFPAY ==
--- NOTE | 2023-08-06 10:51 | US_ITS ---
[address] [address] Patient Name: SANDY GODINEZ MRN: [id number] date: 1995 Sex: F Assigned Patient Location: US Current Patient Location: US Accession/Order Number: [id number] Exam Date: 08/06/2023 11:00 Report Date: 08/06/2023 11:31 At the request of: JOSE MIGUEL BOATENG Procedure: US OB transvaginal EXAMINATION: US OB transvaginal HISTORY: subchorionic hematoma in first trimester O41.8X10 COMPARISON: Ultrasound OB transvaginal 07/19/2023 TECHNIQUE: Transvaginal sonographic examination was performed for obstetrical and evaluation. FINDINGS: Number: 1 Heart Rate: 164.6 bpm Cervix Length: 4.0 cm, closed. Other: None GESTATIONAL AGE: Age by EDC: 11 weeks 4 days NOVA by EDC: 02/21/2024 US/US OB transvaginal IMPRESSION: 1. Single live intrauterine . 2. No subchorionic hematoma. Electronically authenticated by: DAVID BLACKMON Date: 08/06/2023 11:31
--- OUTSIDE RECORDS SUMMARY | 2023-08-06 10:53 | XMS_ITS | CCD ---
Author Name Unknown Address 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 Role Phone Farrah Garcia Primary Care [...] Care Unavailable JUSTEN, DR GILLESPIE Consulting Unavailable JSUTEN, DR GILLESPIE Admitting Unavailable JUSTEN, DR GILLESPIE [...] Unavailable JUSTEN, DR JOSE MIGUEL Attending Unavailable BUCHANAN DAM, DR KIRK Johnson Consulting Unavailable DR JOSE MIGUEL CAMPUZANO Admitting Unavailable [facility] [place] [place], DR LORENZANA Primary Care Unavailable DR JOSE MIGUEL CAMPUZANO Consulting Unavailable Royer Simmons Attending Unavailab Royer Watts Admitting Unavailab [facility] Primary Care Unavailable Unavailable Primary Care Provider UnavailJOSE MIGUEL Barreto Attending Unavailable Allergies Allergy Classification Reported Allergen(s) Allergy Type Date of Onset Reaction(s) Facility (1 source) Desonide Drug Allergy 9 [facility] Repository (2 sources) Wound Dressing Adhesive Drug Intolerance 2 Itching [facility] Work Phone: Medications Current Medications Medication Drug Class(es) Dates Sig (Normalized) Sig (Original) ferrous sulfate 325 mg oral tablet (2 sources) Start: 09-27-2022 take 1 tablet by mouth in the morning ferrous sulfate 325 (65 Fe) MG tablet Take 1 tablet by mouth in the morning and 1 tablet before bedtime. 0 09/27/2022 Active ondansetron 4 mg disintegrating oral tablet (4 sources) Serotonin-3 Receptor Antagonist Start: 03-20-2023 End: [...] Refills(s) 0 Start Date: 03/13/13 Status: Ordered terconazole 4 mg/ml vaginal cream (1 source) Azole Antifungal Start: 07-24-2023 End: 07-31-2023 terconazole (Terazol 7) 0.4 % vaginal cream Indications: Yeast infection Insert 1 applicator into the vagina at bedtime for 7 days 45 g 0 07/24/2023 07/31/2023 Active valACYclovir 500 mg oral tablet (2 sources) Herpesvirus Nucleoside Analog DNA Polymerase Inhibitor, Herpes [...] 02-15-2022 Episodic Other aftercare (1 source) Other jail (current) 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; 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: [OTH [employer]IL [employer] 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] Onset: 02-05-2022 Episodic Other [...] Test Name Value Interpretation Reference Range Facility ALL CBC WITH AUTO DIFFon BASOPHILS ABSOLUTE AUTO 0.1 [facility] Basophils/100 WBC (Bld) 0.7 % 0.2 - 2.0 % [facility] Eosinophils/100 WBC (Bld) 2.6 % 0.9 - 7.0 % [facility] Erythrocyte distribution width (RBC) [Ratio] 13.4 % 11.0 - 15.0 % [facility] Hematocrit (Bld) [Volume fraction] 39.0 % 36.0 - 48.0 % [facility] Hemoglobin (Bld) [Mass/Vol] 12.8 g/dL 12.0 - 16.0 g/dL [facility] IMMATURE GRANULOCYTES ABS AUTO 0.01 [facility] Immature granulocytes/100 WBC (Bld) 0.1 % 0.0 - 0.5 % [facility] LYMPHOCYTES ABSOLUTE AUTO 2.2 [facility] Lymphocytes/100 WBC (Bld) 26.1 % 20.5 - 60.0 % [facility] MCH (RBC) [Entitic mass] 28.6 pg 26.7 - 34.0 pg [facility] MCHC (RBC) [Mass/Vol] 32.8 g/dL 29.9 - 35.2 g/dL [facility] MCV (RBC) [Entitic vol] 87.2 fL 81.0 - 99.0 fL [facility] MONOCYTES ABSOLUTE AUTO 0.5 [facility] Monocytes/100 WBC (Bld) 5.7 % 1.7 - 12.0 % [facility] NEUTROPHILS ABSOLUTE AUTO 5.5 [facility] Neutrophils/100 WBC (Bld) 64.8 % 43.0 - 75.0 % [facility] Platelet mean volume (Bld) [Entitic vol] 10.1 fL 9.5 - 13.5 fL [facility] EO # 0.2 [facility] PLT 340 [facility] RBC 4.47 [facility] WBC 8.4 [facility] HCG ( test) Ql (U)o n 07-19-2023 Interpretation and review of laboratory results Abnormal [facility] Preg Test, Ur Positive Counts include 234 beds at the [facility] Urinalysis macro (dipstick) panel (U)on 07-19-2023 Bilirubin, UA Negative Negative - 4(70) +++ mg/dL [facility] Blood, UA Positive Negative - 50 Anselmo/mcL [facility] Comment on above: moderate Clarity, UA Clear [facility] Color, UA [place] [facility] Glucose, UA Negative Negative - 1999(110) ++++ mg/dL [facility] Interpretation and review of laboratory results Abnormal [facility] Ketones, UA Positive Negative - 160(16) ++++ mg/dL [facility] Comment on above: trace Leukocytes, UA Positive Negative - 500+++ Monik/mcL [facility] Comment on above: small Nitrite, UA Negative Negative - Positive [facility] pH, UA 6.0 5 - 9 [facility] Protein, UA Positive Negative - 1999(20) ++++ mg/dL [facility] Comment on above: 30 Spec Grav, UA 1.030 1 - 1.03 [facility] Urobilinogen, UA 1.0 0.2 - 12 mg/dL Counts include 234 beds at the [facility] In office Testingon 09-06- 23 In office Testing [id number]# 1.00CD:127 Normal [facility] CBC AUTO DIFFon 07-30-2022 BASO # 0.1 103/ul Normal 0.0-0.1 [facility] Comment on above: Performed By: #### U RCX #### [facility] [address] [place] [address] Dr. Caitlin Martinez Basophils/100 WBC (Bld) 1.1 % Normal 0.2-2.0 [facility] Comment on above: Performed By: #### U RCX #### [facility] [address] [place] [address] Dr. Caitlin Martinez EO # 0.3 103/ul Normal 0.0-0.7 [facility] Comment on above: Performed By: #### U RCX #### [facility] [address] [address] [address] Caitlin Martinez Eosinophils/100 WBC (Bld) 4.7 % Normal 0.9-7.0 [facility] Comment on above: Performed By: #### U RCX #### [facility] [address] [place] [address] Dr. Caitlin Martinez Erythrocyte distribution width (RBC) [Ratio] 14.7 % Normal 11.0-15.0 [facility] Comment on above: Performed By: #### U RCX #### [facility] [address] [address] [address] Caitlin Martinez Hematocrit (Bld) [Volume fraction] 39.3 % Normal 36.0-48.0 [facility] Comment on above: Performed By: #### U RCX #### [facility] [address] [address] [address] Caitlin Martinez Hemoglobin (Bld) [Mass/Vol] 12.7 g/dL Normal 12.0-16.0 [facility] Comment on above: Performed By: #### U RCX #### [facility] [address] [place] [address] Dr. Caitlin Martinez IG # 0.02 10e3/ul Normal 0.00-0.03 [facility] Comment on above: Performed By: #### U RCX #### [facility] [address] [place] [address] Dr. Caitlin Martinez IG % 0.3 % Normal 0.0-0.5 [facility] Comment on above: Performed By: #### U RCX #### [facility] [address] [place] [address] Dr. Caitlin Martinez LYMPH # 2.5 103/ul Normal 1.2-3.8 [facility] Comment on above: Performed By: #### U RCX #### [facility] [address] [place] [address] Dr. Caitlin Martinez Lymphocytes/100 WBC (Bld) 34.5 % Normal 20.5-60.0 [facility] Comment on above: Performed By: #### U RCX #### [facility] [address] [place] [address] Dr. Caitlin Martinez MANUAL DIFF REQ NO Normal [facility] Comment on above: Performed By: #### U RCX #### [facility] [address] [place] [address] Dr. Caitlin Martinez MCH (RBC) [Entitic mass] 27.3 pg Normal 26.7-34.0 [facility] Comment on above: Performed By: #### U RCX #### [facility] [address] [address] [address] Caitlin Martinez MCHC (RBC) [Mass/Vol] 32.3 g/dL Normal 29.9-35.2 [facility] Comment on above: Performed By: #### U RCX #### [facility] [address] [address] [address] Caitlin Martinez MCV (RBC) [Entitic vol] 84.5 fL Normal 81.0-99.0 [facility] Comment on above: Performed By: #### U RCX #### [facility] [address] [address] [address] Caitlin Martinez MONO # 0.5 103/ul Normal 0.3-0.8 [facility] Comment on above: Performed By: #### U RCX #### [facility] [address] [place] [address] Dr. Caitlin Martinez Monocytes/100 WBC (Bld) 7.3 % Normal 1.7-12.0 [facility] Comment on above: Performed By: #### U RCX #### [facility] [address] [place] [address] Dr. Caitlin Martinez NEUT # 3.8 103/ul Normal 1.4-6.5 [facility] Comment on above: Performed By: #### U RCX #### [facility] [address] [place] [address] Dr. Caitlin Martinez Neutrophils/100 WBC (Bld) 52.1 % Normal 43.0-75.0 [facility] Comment on above: Performed By: #### U RCX #### [facility] [address] [place] [address] Dr. Caitlin Martinez Platelet mean volume (Bld) [Entitic vol] 9.0 fL Critically low 9.5-13.5 [facility] Comment on above: Performed By: #### U RCX #### [facility] [address] [place] [address] Dr. Caitlin Martinez PLT 368 103/ul Normal 150-450 [facility] Comment on above: Performed By: #### U RCX #### [facility] [address] [address] [address] Caitlin Martinez RBC 4.65 106/ul Normal 4.20-5.40 [facility] Comment on above: Performed By: #### U RCX #### [facility] [address] [address] [address] Caitlin Martinez WBC 7.2 103/ul Normal 4.0-11.0 [facility] Comment on above: Performed By: #### U RCX #### [facility] [address] [place] [address] Dr. Caitlin Martinez IRONon 07-30-2022 Iron [Mass/Vol] 43.0 ug/dL Critically low 50.0-170.0 [facility] Comment on above: Performed By: #### U RCX #### [facility] [address] [place] [address] Dr. Caitlin Martinez PAP ACOG PANEL 2: 22 to on 07-30-2022 . . Normal [facility] Comment on above: Performed By: #### U RCX #### [facility] [address] [place] [address] Dr. Caitlin Martinez Age Gdln ACOG Testing - [facility] Comment on above: Performed By: #### U RCX #### [facility] [address] [place] [address] Dr. Caitlin Martinez DIAGNOSIS: Comment Normal [facility] Comment on above: Result Comment: NEGA TIVE FOR INTRAEPITHELIAL LESION OR MALIGNANCY. Performed By: #### U RCX #### [facility] [address] [place] [address] Dr. Caitlin Martinez Methodology: Comment Normal [facility] Comment on above: Result Comment: This liquid based ThinPrep(R) pap test was screened with the use of an image guided system. Performed By: #### U RCX #### [facility] [address] [place] [address] Dr. Caitlin Martinez Note: Comment Normal [facility] Comment on above: Result Comment: The Pap smear is a screening test designed to aid in the detection of premalignant and malignant conditions of the uterine cervix. It is not a diagnostic procedure and should not be used as the sole means of detecting cervical cancer. Both false-positive and false-negative reports do occur. . Performed By: #### U RCX #### [facility] [address] [place] [address] Dr. Caitlin Martinez Performed by: Comment Normal [facility] Comment on above: Result Comment: Bhavna Cormier, Circulation Tender (ASCP) Performed By: #### U RCX #### [facility] [address] [place] [address] Dr. Caitlin Martinez Reflex Criteria: Comment Normal [facility] Comment on above: Result Comment: The HPV DNA reflex criteria were not met with this specimen result therefore, no HPV testing was performed. . Performed By: #### U RCX #### [facility] [address] [place] [address] Dr. Caitlin Martinez Specimen adequacy: Comment Normal [facility] Comment on above: Result Comment: Sati sfactory for evaluation. Endocervical and/or squamous metaplastic cells (endocervical component) are present. Performed By: #### U RCX #### [facility] [address] [place] [address] Dr. Caitlin Martinez INSULINon 04-19-2022 Insulin 9.1 uIU/mL Normal 2.6-24.9 [facility] Comment on above: Performed By: #### I HORACIO #### [facility] [address] [place] [address] Dr. Caitlin Martinez CBC AUTO DIFFon 04-18-2022 BASO # 0.1 103/ul Normal 0.0-0.1 [facility] Comment on above: Performed By: #### U RCX #### [facility] [address] [place] [address] Dr. Caitlin Martinez Basophils/100 WBC (Bld) 1.0 % Normal 0.2-2.0 [facility] Comment on above: Performed By: #### U RCX #### [facility] [address] [place] [address] Dr. Caitlin Martinez EO # 0.3 103/ul Normal 0.0-0.7 [facility] Comment on above: Performed By: #### U RCX #### [facility] [address] [place] [address] Dr. Caitlin Martinez Eosinophils/100 WBC (Bld) 4.1 % Normal 0.9-7.0 [facility] Comment on above: Performed By: #### U RCX #### [facility] [address] [place] [address] Dr. Caitlin Martinez Erythrocyte distribution width (RBC) [Ratio] 16.0 % Critically high 11.0-15.0 [facility] Comment on above: Performed By: #### U RCX #### [facility] [address] [place] [address] Dr. Caitlin Martinez Hematocrit (Bld) [Volume fraction] 35.7 % Critically low 36.0-48.0 [facility] Comment on above: Performed By: #### U RCX #### [facility] [address] [place] [address] Dr. Caitlin Martinez Hemoglobin (Bld) [Mass/Vol] 10.9 g/dL Critically low 12.0-16.0 [facility] Comment on above: Performed By: #### U RCX #### [facility] [address] [place] [address] Dr. Caitlin Martinez IG # 0.07 10e3/ul Critically high 0.00-0.[address] [facility] Comment on above: Performed By: #### U RCX #### [facility] [address] [place] [address] Dr. Caitlin Martinez IG % 1.0 % Critically high 0.0-0.5 [facility] Comment on above: Performed By: #### U RCX #### [facility] [address] [place] [address] Dr. Caitlin Martinez LYMPH # 2.3 103/ul Normal 1.2-3.8 [facility] Comment on above: Performed By: #### U RCX #### [facility] [address] [place] [address] Dr. Caitlin Martinez Lymphocytes/100 WBC (Bld) 31.4 % Normal 20.5-60.0 [facility] Comment on above: Performed By: #### U RCX #### [facility] [address] [place] [address] Dr. Caitlin Martinez MANUAL DIFF REQ NO Normal [facility] Comment on above: Performed By: #### U RCX #### [facility] [address] [place] [address] Dr. Caitlin Martinez MCH (RBC) [Entitic mass] 24.8 pg Critically low 26.7-34.0 [facility] Comment on above: Performed By: #### U RCX #### [facility] [address] [place] [address] Dr. Caitlin Martinez MCHC (RBC) [Mass/Vol] 30.5 g/dL Normal 29.9-35.2 [facility] Comment on above: Performed By: #### U RCX #### [facility] [address] [place] [address] Dr. Caitlin Martinez MCV (RBC) [Entitic vol] 81.1 fL Normal 81.0-99.0 [facility] Comment on above: Performed By: #### U RCX #### [facility] [address] [place] [address] Dr. Caitlin Martinez MONO # 0.5 103/ul Normal 0.3-0.8 [facility] Comment on above: Performed By: #### U RCX #### [facility] [address] [place] [address] Dr. Caitlin Martinez Monocytes/100 WBC (Bld) 6.6 % Normal 1.7-12.0 [facility] Comment on above: Performed By: #### U RCX #### [facility] [address] [place] [address] Dr. Caitlin Martinez NEUT # 4.1 103/ul Normal 1.4-6.5 [facility] Comment on above: Performed By: #### U RCX #### [facility] [address] [place] [address] Dr. Caitlin Martinez Neutrophils/100 WBC (Bld) 55.9 % Normal 43.0-75.0 [facility] Comment on above: Performed By: #### U RCX #### [facility] [address] [place] [address] Dr. Caitlin Martinez Platelet mean volume (Bld) [Entitic vol] 9.4 fL Critically low 9.5-13.5 [facility] Comment on above: Performed By: #### U RCX #### [facility] [address] [place] [address] Dr. Caitlin Martinez PLT 369 103/ul Normal 150-450 [facility] Comment on above: Performed By: #### U RCX #### [facility] [address] [place] [address] Dr. Caitlin Martinez RBC 4.40 106/ul Normal 4.20-5.40 [facility] Comment on above: Performed By: #### U RCX #### [facility] [address] [place] [address] Dr. Caitlin Martinez WBC 7.3 103/ul Normal 4.0-11.0 [facility] Comment on above: Performed By: #### U RCX #### [facility] [address] [place] [address] Dr. Caitlin Martinez FREE THYROXINE INDEX T7on FTI 2.20 Normal 1.30-4.50 [facility] Comment on above: Performed By: #### I HORACIO #### [facility] [address] [place] [address] Dr. Caitlin Martinez T3U 29.0 % Critically low 30.0-39.[address] [facility] Comment on above: Performed By: #### I HORACIO #### [facility] [address] [place] [address] Dr. Caitlin Martinez T4 [Mass/Vol] 7.60 ug/dL Normal 4.80-13.90 [facility] Comment on above: Performed By: #### I HORACIO #### [facility] [address] [place] [address] Dr. Caitlin Martinez GLYCOHEMOGLOBIN A1Con 2021 ADA RECOMMENDATION SEE BELOW Normal [facility] Comment on above: Result Comment: ADA RECOMMENDED LIMIT 4.0 - 6.0 ADA THERAPEUTIC TARGET < 7.0 ACTION SUGGESTED > 7.0 Performed By: #### U RCX #### [facility] [address] [address] [address] Caitlin Martinez Glucose [Mass/Vol] 97 mg/dL Normal [facility] Comment on above: Performed By: #### U RCX #### [facility] [address] [address] [address] Caitlin Martinez HbA1c (Bld) [Mass fraction] 5.0 % Normal 4.5-6.2 [facility] Comment on above: Performed By: #### U RCX #### [facility] [address] [place] [address] Dr. Caitlin Martinez IRONon 04-18-2022 Iron [Mass/Vol] 35.0 ug/dL Critically low 50.0-170.0 [facility] Comment on above: Performed By: #### I HORACIO #### [facility] [address] [place] [address] Dr. Caitlin Martinez LIPID PROFILEon 04-18-2022 CHOL-HDL RATIO NORM SEE BELOW Normal [facility] Comment on above: Result Comment: 3.3 - 4.4 LOW RISK 4.4 - 7.1 AVERAGE RISK 7.1 - 11.0 MODERATE RISK >11.0 HIGH RISK Performed By: #### I HORACIO #### [facility] [address] [address] [address] Caitlin Martinez Cholesterol [Mass/Vol] 221 mg/dL Critically high <=200 [facility] Comment on above: Performed By: #### I HORACIO #### [facility] [address] [place] [address] Dr. Caitlin Martinez Cholesterol in HDL [Mass/Vol] 67 mg/dL Critically high 40-60 [facility] Comment on above: Performed By: #### I HORACIO #### [facility] [address] [address] [address] Caitlin Martinez Cholesterol in LDL [Mass/Vol] 142.4 mg/dL Normal [facility] Comment on above: Performed By: #### I HORACIO #### [facility] [address] [address] [address] Caitlin Martinze Cholesterol.total/Cho lesterol in HDL [Mass ratio] 3.3 {ratio} Normal [facility] Comment on above: Performed By: #### I HORACIO #### [facility] [address] [address] [address] Caitlin Martinez HDL NORMAL > or = 60 mg/dl - LO W CARDIOVASCULAR RISK <40 mg/dl - HIGH CARDIOVASCULAR RISK Normal [facility] Comment on above: Performed By: #### I HORACIO #### [facility] [address] [place] [address] Dr. Caitlin Martinez LDL CALC NORMAL SEE BELOW Normal [facility] Comment on above: Result Comment: <100 mg/dl OPTIMAL 100 - 129 mg/dl NEAR OR ABOVE OPTIMAL 130 - 159 mg/dl BORDERLINE HIGH 160 - 189 mg/dl HIGH >190 mg/dl VERY HIGH Performed By: #### I HORACIO #### [facility] [address] [place] [address] Dr. Caitiln Martinez Triglyceride [Mass/Vol] 58 mg/dL Normal <=150 [facility] Comment on above: Performed By: #### I HORACIO #### [facility] [address] [place] [address] Dr. Caitlin Martinez VLDL CALC 11.6 mg/dL Normal [facility] Comment on above: Performed By: #### I HORACIO #### [facility] [address] [address] [address] Caitlin Martinez PROF 14(COMP METB)on 022 Albumin [Mass/Vol] 3.8 g/dL Normal 3.4-5.0 [facility] Comment on above: Performed By: #### I HORACIO #### [facility] [address] [place] [address] Dr. Caitlin Martinez Albumin/Globulin [Mass ratio] 1.1 {ratio} Normal [facility] Comment on above: Performed By: #### I HORACIO #### [facility] [address] [place] [address] Dr. Caitlin Martinez ALP [Catalytic activity/Vol] 132 U/L Critically high 46-116 [facility] Comment on above: Performed By: #### I HORACIO #### [facility] [address] [place] [address] Dr. Caitlin Martinez ALT [Catalytic activity/Vol] 55 U/L Normal 14-59 [facility] Comment on above: Performed By: #### I HORACIO #### [facility] [address] [place] [address] Dr. Caitlin Martinez Anion gap [Moles/Vol] 12.6 mmol/L Normal [facility] Comment on above: Performed By: #### I HORACIO #### [facility] [address] [place] [address] Dr. Caitlin Martinez AST [Catalytic activity/Vol] 27 U/L Normal 15-37 [facility] Comment on above: Performed By: #### I HORACIO #### [facility] [address] [place] [address] Dr. Caitlin Martinez Bilirubin [Mass/Vol] 0.6 mg/dL Normal 0.2-1.0 [facility] Comment on above: Performed By: #### I HORACIO #### [facility] [address] [place] [address] Dr. Caitlin Martinez Calcium [Mass/Vol] 9.1 mg/dL Normal 8.5-10.1 [facility] Comment on above: Performed By: #### I HORACIO #### [facility] [address] [place] [address] Dr. Caitlin Martinez Chloride [Moles/Vol] 106 mmol/L Normal 98-107 [facility] Comment on above: Performed By: #### I HORACIO #### [facility] [address] [place] [address] Dr. Caitlin Martinez CO2 [Moles/Vol] 26.5 mmol/L Normal 21.0-32.0 [facility] Comment on above: Performed By: #### I HORACIO #### [facility] [address] [place] [address] Dr. Caitlin Martinze Creatinine [Mass/Vol] 0.63 mg/dL Normal 0.55-1.02 [facility] Comment on above: Performed By: #### I HORACIO #### [facility] [address] [address] [address] Caitlin Martinez EGFR-AF ALGERIAN >60 Normal >=60 [facility] Comment on above: Performed By: #### I HORACIO #### [facility] [address] [address] [address] Caitlin Martinez EGFR-NON AF ALGERIAN >60 Normal >=60 [facility] Comment on above: Performed By: #### I HORACIO #### [facility] [address] [address] [address] Caitlin Martinez Globulin (S) [Mass/Vol] 3.6 g/dL Normal [facility] Comment on above: Performed By: #### I HORACIO #### [facility] [address] [address] [address] Caitlin Martinez Glucose [Mass/Vol] 98 mg/dL Normal 74-106 [facility] Comment on above: Performed By: #### I HORACIO #### [facility] [address] [address] [address] Caitlin Martinez Potassium [Moles/Vol] 4.1 mmol/L Normal 3.5-5.1 [facility] Comment on above: Performed By: #### I HORACIO #### [facility] [address] [address] [address] Caitlin Martinez Protein [Mass/Vol] 7.4 g/dL Normal 6.4-8.2 [facility] Comment on above: Performed By: #### I HORACIO #### [facility] [address] [address] [address] Caitlin Martinez Sodium [Moles/Vol] 141 mmol/L Normal 136-145 [facility] Comment on above: Performed By: #### I HORACIO #### [facility] [address] [address] [address] Caitlin Martinez Urea nitrogen [Mass/Vol] 9.0 mg/dL Normal 7.0-18.0 [facility] Comment on above: Performed By: #### I HORACIO #### [facility] [address] [place], [place] [address] Dr. Caitlin Martinez Urea nitrogen/Creatinine [Mass ratio] 14.3 mg/mg Normal [facility] Comment on above: Performed By: #### I HORACIO #### [facility] [address] [place], [place] [address] Dr. Caitlin Martinez TSHon 04-18-2022 TSH 1.349 uIU/mL Normal 0.358-3.740 [facility] Comment on above: Performed By: #### I HORACIO #### [facility] [address] [address] [address] Caitlin Martinez ANTIBODY ID PANELon 02-15-20 22 ANTIBODY ID PANEL Antibody ID Anti-D Blood Bank Notes most likely due to Rhogam given on 12/01/21 Normal [facility] Comment on above: Performed By: #### D IRCMB, ABID #### [facility] [address] [address] [address] Caitlin Martinez CTA CHEST WO W [...] GAGANDEEP WHEELER Date: 2022-02-10 22:55 Normal [facility] CBC AUTO DIFFon 02-10-2022 BASO # 0.1 103/ul Normal 0.0-0.1 [facility] Comment on above: Performed By: #### C BC #### [facility] [address] [address] [address] Caitlin Martinez Basophils/100 WBC (Bld) 0.4 % Normal 0.2-2.0 [facility] Comment on above: Performed By: #### C BC #### [facility] [address] [address] [address] Caitlin Martinez EO # 0.5 103/ul Normal 0.0-0.7 [facility] Comment on above: Performed By: #### C BC #### [facility] [address] [address] [address] Caitlin Martinez Eosinophils/100 WBC (Bld) 4.2 % Normal 0.9-7.0 [facility] Comment on above: Performed By: #### C BC #### [facility] [address] [address] [address] Caitlin Martinez Erythrocyte distribution width (RBC) [Ratio] 14.7 % Normal 11.0-15.0 [facility] Comment on above: Performed By: #### C BC #### [facility] [address] [address] [address] Caitlin Martinez Hematocrit (Bld) [Volume fraction] 31.1 % Critically low 36.0-48.0 [facility] Comment on above: Performed By: #### C BC #### [facility] [address] [address] [address] Caitlin Martinez Hemoglobin (Bld) [Mass/Vol] 9.6 g/dL Critically low 12.0-16.0 [facility] Comment on above: Performed By: #### C BC #### [facility] [address] [address] [address] Caitlin Martinez IG # 0.28 10e3/ul Critically high 0.00-0.[address] [facility] Comment on above: Performed By: #### C BC #### [facility] [address] [address] [address] Caitlin Martinez IG % 2.3 % Critically high 0.0-0.5 [facility] Comment on above: Performed By: #### C BC #### [facility] [address] [address] [address] Caitlin Martinez LYMPH # 3.3 103/ul Normal 1.2-3.8 [facility] Comment on above: Performed By: #### C BC #### [facility] [address] [place] [address] Dr. Caitlin Martinez Lymphocytes/100 WBC (Bld) 26.9 % Normal 20.5-60.0 [facility] Comment on above: Performed By: #### C BC #### [facility] [address] [place] [address] Dr. Caitlin Martinez MANUAL DIFF REQ NO Normal [facility] Comment on above: Performed By: #### C BC #### [facility] [address] [place] [address] Dr. Caitlin Martinez MCH (RBC) [Entitic mass] 26.2 pg Critically low 26.7-34.0 [facility] Comment on above: Performed By: #### C BC #### [facility] [address] [place] [address] Dr. Caitlin Martinez MCHC (RBC) [Mass/Vol] 30.9 g/dL Normal 29.9-35.2 [facility] Comment on above: Performed By: #### C BC #### [facility] [address] [place] [address] Dr. Caitlin Martinez MCV (RBC) [Entitic vol] 84.7 fL Normal 81.0-99.0 [facility] Comment on above: Performed By: #### C BC #### [facility] [address] [place] [address] Dr. Caitlin Martinez MONO # 1.1 103/ul Critically high 0.3-0.8 [facility] Comment on above: Performed By: #### C BC #### [facility] [address] [place] [address] Dr. Caitlin Martinez Monocytes/100 WBC (Bld) 8.7 % Normal 1.7-12.0 [facility] Comment on above: Performed By: #### C BC #### [facility] [address] [address] [address] Caitlin Martinez NEUT # 7.0 103/ul Critically high 1.4-6.5 [facility] Comment on above: Performed By: #### C BC #### [facility] [address] [address] [address] Caitlin Martinez Neutrophils/100 WBC (Bld) 57.5 % Normal 43.0-75.0 [facility] Comment on above: Performed By: #### C BC #### [facility] [address] [place] [address] Dr. Caitlin Martinez Platelet mean volume (Bld) [Entitic vol] 9.1 fL Critically low 9.5-13.5 [facility] Comment on above: Performed By: #### C BC #### [facility] [address] [place] [address] Dr. Caitlin Martinez PLT 437 103/ul Normal 150-450 [facility] Comment on above: Performed By: #### C BC #### [facility] [address] [place] [address] Dr. Caitlin Martinez RBC 3.67 106/ul Critically low 4.20-5.40 [facility] Comment on above: Performed By: #### C BC #### [facility] [address] [place] [address] Dr. Caitlin Martinez WBC 12.3 103/ul Critically high 4.0-11.0 [facility] Comment on above: Performed By: #### C BC #### [facility] [address] [place] [address] Dr. Caitlin Martinez Covid-19 PCR ([facility])on 01-16 SARS-CoV-2 (COVID-19) RNA JONATAN+probe Ql (Unsp spec) Not detected Normal NOT DETECTED [facility] Comment on above: Result Comment: When [...] for this test is supported by the [employer]'s declaration that [...] used). Performed By: #### C VDTB #### [facility] [address] [place] [address] Dr. Caitlin Martinez PROF 14(COMP METB)on 022 Albumin [Mass/Vol] 2.1 g/dL Critically low 3.4-5.0 [facility] Comment on above: Performed By: #### U RCX #### [facility] [address] [place] [address] Dr. Caitlin Martinez Albumin/Globulin [Mass ratio] 0.5 {ratio} Normal [facility] Comment on above: Performed By: #### U RCX #### [facility] [address] [place] [address] Dr. Caitlin Martinez ALP [Catalytic activity/Vol] 202 U/L Critically high 46-116 [facility] Comment on above: Performed By: #### U RCX #### [facility] [address] [place] [address] Dr. Caitlin Martinez ALT [Catalytic activity/Vol] 20 U/L Normal 14-59 [facility] Comment on above: Performed By: #### U RCX #### [facility] [address] [place] [address] Dr. Caitlin Martinez Anion gap [Moles/Vol] 11.6 mmol/L Normal [facility] Comment on above: Performed By: #### U RCX #### [facility] [address] [place] [address] Dr. Caitlin Martinez AST [Catalytic activity/Vol] 17 U/L Normal 15-37 [facility] Comment on above: Performed By: #### U RCX #### [facility] [address] [place] [address] Dr. Caitlin Martinez Bilirubin [Mass/Vol] 0.3 mg/dL Normal 0.2-1.0 [facility] Comment on above: Performed By: #### U RCX #### [facility] [address] [place] [address] Dr. Caitlin Martinez Calcium [Mass/Vol] 9.2 mg/dL Normal 8.5-10.1 [facility] Comment on above: Performed By: #### U RCX #### [facility] [address] [place] [address] Dr. Caitlin Martinez Chloride [Moles/Vol] 104 mmol/L Normal 98-107 [facility] Comment on above: Performed By: #### U RCX #### [facility] [address] [place] [address] Dr. Caitlin Martinez CO2 [Moles/Vol] 26.9 mmol/L Normal 21.0-32.0 [facility] Comment on above: Performed By: #### U RCX #### [facility] [address] [place] [address] Dr. Caitlin Martinez Creatinine [Mass/Vol] 0.56 mg/dL Normal 0.55-1.02 [facility] Comment on above: Performed By: #### U RCX #### [facility] [address] [place] [address] Dr. Caitlin Martinez EGFR-AF ALGERIAN >60 Normal >=60 [facility] Comment on above: Performed By: #### U RCX #### [facility] [address] [place] [address] Dr. Caitlin Martinez EGFR-NON AF ALGERIAN >60 Normal >=60 [facility] Comment on above: Performed By: #### U RCX #### [facility] [address] [place] [address] Dr. Caitlin Martinez Globulin (S) [Mass/Vol] 4.4 g/dL Normal [facility] Comment on above: Performed By: #### U RCX #### [facility] [address] [address] [address] Caitlin Martinez Glucose [Mass/Vol] 108 mg/dL Critically high 74-106 [facility] Comment on above: Performed By: #### U RCX #### [facility] [address] [address] [address] Caitlin Martinez Potassium [Moles/Vol] 3.5 mmol/L Normal 3.5-5.1 [facility] Comment on above: Performed By: #### U RCX #### [facility] [address] [address] [address] Caitlin Martinez Protein [Mass/Vol] 6.5 g/dL Normal 6.4-8.2 [facility] Comment on above: Performed By: #### U RCX #### [facility] [address] [address] [address] Caitlin Martinez Sodium [Moles/Vol] 139 mmol/L Normal 136-145 [facility] Comment on above: Performed By: #### U RCX #### [facility] [address] [address] [address] Caitlin Martinez Urea nitrogen [Mass/Vol] 7.0 mg/dL Normal 7.0-18.0 [facility] Comment on above: Performed By: #### U RCX #### [facility] [address] [address] [address] Caitlin Martinez Urea nitrogen/Creatinine [Mass ratio] 12.5 mg/mg Normal [facility] Comment on above: Performed By: #### U RCX #### [facility] [address] [address] [address] Caitlin Martinez TROPONIN, HIGH SENSITIVITYon 02-10-2022 HSTROP <4.0 Normal 4.0-51.3 [facility] Comment on above: Result Comment: CUT- OFF POINTS HAVE BEEN ESTABLISHED BASED ON THE FOURTH UNIVERSAL DEFINITIONS OF MYOCARDIAL INFARCTION. THE UPPER REFERENCE LIMIT (URL) OF TROPONIN, DEFINED THE 99TH PERCENTILE OF cTnI DISTRIBUTION IN A REFERENCE POPULATION, HAS BEEN CONFIRMED THE DECISION THRESHOLD FOR IA DIAGNOSIS. Performed By: #### U RCX #### [facility] [address] [place] [address] Dr. Caitlin Martinez CBC AUTO DIFFon 02-09-2022 BASO # 0.1 103/ul Normal 0.0-0.1 [facility] Comment on above: Performed By: #### U RCX #### [facility] [address] [place] [address] Dr. Caitlin Martinez Basophils/100 WBC (Bld) 0.6 % Normal 0.2-2.0 [facility] Comment on above: Performed By: #### U RCX #### [facility] [address] [place] [address] Dr. Caitlin Martinez EO # 0.3 103/ul Normal 0.0-0.7 [facility] Comment on above: Performed By: #### U RCX #### [facility] [address] [place] [address] Dr. Caitlin Martinez Eosinophils/100 WBC (Bld) 2.3 % Normal 0.9-7.0 [facility] Comment on above: Performed By: #### U RCX #### [facility] [address] [place] [address] Dr. Caitlin Martinez Erythrocyte distribution width (RBC) [Ratio] 14.6 % Normal 11.0-15.0 [facility] Comment on above: Performed By: #### U RCX #### [facility] [address] [place] [address] Dr. Caitlin Martinez Hematocrit (Bld) [Volume fraction] 28.8 % Critically low 36.0-48.0 [facility] Comment on above: Performed By: #### U RCX #### [facility] [address] [place] [address] Dr. Caitlin Martinez Hemoglobin (Bld) [Mass/Vol] 9.0 g/dL Critically low 12.0-16.0 [facility] Comment on above: Performed By: #### U RCX #### [facility] [address] [place] [address] Dr. Caitlin Martinez IG # 0.20 10e3/ul Critically high 0.00-0.[address] [facility] Comment on above: Performed By: #### U RCX #### [facility] [address] [place] [address] Dr. Caitlin Martinez IG % 1.5 % Critically high 0.0-0.5 [facility] Comment on above: Performed By: #### U RCX #### [facility] [address] [place] [address] Dr. Caitlin Martinez LYMPH # 3.0 103/ul Normal 1.2-3.8 [facility] Comment on above: Performed By: #### U RCX #### [facility] [address] [place] [address] Dr. Caitlin Martinez Lymphocytes/100 WBC (Bld) 22.2 % Normal 20.5-60.0 [facility] Comment on above: Performed By: #### U RCX #### [facility] [address] [place] [address] Dr. Caitlin Martinez MANUAL DIFF REQ NO Normal [facility] Comment on above: Performed By: #### U RCX #### [facility] [address] [place] [address] Dr. Caitlin Martinez MCH (RBC) [Entitic mass] 26.2 pg Critically low 26.7-34.0 [facility] Comment on above: Performed By: #### U RCX #### [facility] [address] [place] [address] Dr. Caitlin Martinez MCHC (RBC) [Mass/Vol] 31.3 g/dL Normal 29.9-35.2 [facility] Comment on above: Performed By: #### U RCX #### [facility] [address] [place] [address] Dr. Caitlin Martinez MCV (RBC) [Entitic vol] 83.7 fL Normal 81.0-99.0 [facility] Comment on above: Performed By: #### U RCX #### [facility] [address] [place] [address] Dr. Caitlin Martinez MONO # 1.3 103/ul Critically high 0.3-0.8 [facility] Comment on above: Performed By: #### U RCX #### [facility] [address] [place] [address] Dr. Caitlin Martinez Monocytes/100 WBC (Bld) 9.8 % Normal 1.7-12.0 [facility] Comment on above: Performed By: #### U RCX #### [facility] [address] [place] [address] Dr. Caitlin Martinez NEUT # 8.5 103/ul Critically high 1.4-6.5 [facility] Comment on above: Performed By: #### U RCX #### [facility] [address] [place] [address] Dr. Caitlin Matrinez Neutrophils/100 WBC (Bld) 63.6 % Normal 43.0-75.0 [facility] Comment on above: Performed By: #### U RCX #### [facility] [address] [place] [address] Dr. Caitlin Martinez Platelet mean volume (Bld) [Entitic vol] 9.1 fL Critically low 9.5-13.5 [facility] Comment on above: Performed By: #### U RCX #### [facility] [address] [place] [address] Dr. Caitlin Martinez PLT 355 103/ul Normal 150-450 [facility] Comment on above: Performed By: #### U RCX #### [facility] [address] [place] [address] Dr. Caitlin Martinez RBC 3.44 106/ul Critically low 4.20-5.40 [facility] Comment on above: Performed By: #### U RCX #### [facility] [address] [place] [address] Dr. Caitlin Martinez WBC 13.3 103/ul Critically high 4.0-11.0 [facility] Comment on above: Performed By: #### U RCX #### [facility] [address] [place] [address] Dr. Caitlin Martinez SCREENon 02-09-2022 SCREEN Negative Normal [facility] Comment on above: Performed By: #### F ETSCRN #### [facility] [address] [place] [address] Dr. Caitlin Martinez CBC AUTO DIFFon 02-08-2022 BASO # 0.1 103/ul Normal 0.0-0.1 [facility] Comment on above: Performed By: #### U RCX #### [facility] [address] [place] [address] Dr. Caitlin Martinez Basophils/100 WBC (Bld) 0.4 % Normal 0.2-2.0 [facility] Comment on above: Performed By: #### U RCX #### [facility] [address] [place] [address] Dr. Caitlin Martinez EO # 0.3 103/ul Normal 0.0-0.7 [facility] Comment on above: Performed By: #### U RCX #### [facility] [address] [place] [address] Dr. Caitlin Martinez Eosinophils/100 WBC (Bld) 2.6 % Normal 0.9-7.0 [facility] Comment on above: Performed By: #### U RCX #### [facility] [address] [place] [address] Dr. Caitlin Martinez Erythrocyte distribution width (RBC) [Ratio] 14.7 % Normal 11.0-15.0 [facility] Comment on above: Performed By: #### U RCX #### [facility] [address] [place] [address] Dr. Caitlin Martinez Hematocrit (Bld) [Volume fraction] 30.6 % Critically low 36.0-48.0 [facility] Comment on above: Performed By: #### U RCX #### [facility] [address] [place] [address] Dr. Caitlin Martinez Hemoglobin (Bld) [Mass/Vol] 9.7 g/dL Critically low 12.0-16.0 [facility] Comment on above: Performed By: #### U RCX #### [facility] [address] [place] [address] Dr. Caitlin Martinez IG # 0.15 10e3/ul Critically high 0.00-0.[address] [facility] Comment on above: Performed By: #### U RCX #### [facility] [address] [place] [address] Dr. Caitlin Martinez IG % 1.3 % Critically high 0.0-0.5 [facility] Comment on above: Performed By: #### U RCX #### [facility] [address] [place] [address] Dr. Caitlin Martinez LYMPH # 2.8 103/ul Normal 1.2-3.8 [facility] Comment on above: Performed By: #### U RCX #### [facility] [address] [place] [address] Dr. Caitlin Martinez Lymphocytes/100 WBC (Bld) 24.8 % Normal 20.5-60.0 [facility] Comment on above: Performed By: #### U RCX #### [facility] [address] [place] [address] Dr. Caitlin Martinez MANUAL DIFF REQ NO Normal [facility] Comment on above: Performed By: #### U RCX #### [facility] [address] [place] [address] Dr. Caitlin Martinez MCH (RBC) [Entitic mass] 26.6 pg Critically low 26.7-34.0 [facility] Comment on above: Performed By: #### U RCX #### [facility] [address] [place] [address] Dr. Caitlin Martinez MCHC (RBC) [Mass/Vol] 31.7 g/dL Normal 29.9-35.2 [facility] Comment on above: Performed By: #### U RCX #### [facility] [address] [place] [address] Dr. Caitlin Martinez MCV (RBC) [Entitic vol] 83.8 fL Normal 81.0-99.0 [facility] Comment on above: Performed By: #### U RCX #### [facility] [address] [place] [address] Dr. Caitlin Martinez MONO # 1.0 103/ul Critically high 0.3-0.8 [facility] Comment on above: Performed By: #### U RCX #### [facility] [address] [place] [address] Dr. Caitlin Martinez Monocytes/100 WBC (Bld) 8.7 % Normal 1.7-12.0 [facility] Comment on above: Performed By: #### U RCX #### [facility] [address] [address] [address] Caitlin Martinez NEUT # 7.0 103/ul Critically high 1.4-6.5 [facility] Comment on above: Performed By: #### U RCX #### [facility] [address] [place] [address] Dr. Caitlin Martinez Neutrophils/100 WBC (Bld) 62.2 % Normal 43.0-75.0 [facility] Comment on above: Performed By: #### U RCX #### [facility] [address] [place] [address] Dr. Caitlin Martinez Platelet mean volume (Bld) [Entitic vol] 9.0 fL Critically low 9.5-13.5 [facility] Comment on above: Performed By: #### U RCX #### [facility] [address] [place] [address] Dr. Caitlin Martinez PLT 373 103/ul Normal 150-450 [facility] Comment on above: Performed By: #### U RCX #### [facility] [address] [place] [address] Dr. Caitlin Martinez RBC 3.65 106/ul Critically low 4.20-5.40 [facility] Comment on above: Performed By: #### U RCX #### [facility] [address] [place] [address] Dr. Caitlin Martinez WBC 11.3 103/ul Critically high 4.0-11.0 [facility] Comment on above: Performed By: #### U RCX #### [facility] [address] [place] [address] Dr. Caitlin Martinez Covid-19 PCR (CVDTBH)on 01-16 SARS-CoV-2 (COVID-19) RNA JONATAN+probe Ql (Unsp spec) Not detected Normal NOT DETECTED [facility] Comment on above: Result Comment: When [...] for this test is supported by the [employer] of [employer]'s declaration that [...] used). Performed By: #### C BC #### [facility] [address] [place] [address] Dr. Caitlin Martinez DIRECT COOMBSon 02-08-2022 DIRECT EDWINA Negative Normal [facility] Comment on above: Performed By: #### D IRCMB, ABID #### [facility] [address] [place] [address] Dr. Caitlin Martinez DRUG SCREEN RAPID (URINE)on 02-08-2022 AMP Negative Normal NEGATIVE [facility] Comment on above: Performed By: #### C BC #### [facility] [address] [place] [address] Dr. Caitlin Martinez BAR Negative Normal NEGATIVE [facility] Comment on above: Performed By: #### C BC #### [facility] [address] [place] [address] Dr. Caitlin Martinez BUP Negative Normal NEGATIVE [facility] Comment on above: Performed By: #### C BC #### [facility] [address] [place] [address] Dr. Caitlin Martinez BZO Negative Normal NEGATIVE [facility] Comment on above: Performed By: #### C BC #### [facility] [address] [address] [address] Caitlin Martinez JEANNA Negative Normal NEGATIVE [facility] Comment on above: Performed By: #### C BC #### [facility] [address] [address] [address] Caitlin Martinez CUT-OFFS SEE BELOW Normal [facility] Comment on above: Result Comment: AMP (Amphetamine): 500ng/mL, BAR (Barbituates): 200 ng/mL, BZO (Benzodiazepines): 150 ng/mL, BUP (Buprenorphine): 10 ng/mL, JEANNA (Cocaine): 150 ng/mL, mAMP (Methamphetamine): 500 ng/mL, MTD (Methadone): 200 ng/mL, OPI (Opiates): 100 ng/mL, OXY (Oxycodone): 100 ng/mL, PCP (Phencyclidine): 25 ng/mL, PPX (Propoxyphene): 300 ng/mL, THC (Cannabinoids): 50 ng/mL, TCA (Trycyclic Antidepressants): 300 ng/mL Performed By: #### C BC #### [facility] [address] [place] [address] Dr. Caitlin Martinez DRUG CUT HEADER DRUG CLASS TEST SYSTEM CUT-OFF CONCENTRATIONS ARE FOLLOWS: Normal [facility] Comment on above: Performed By: #### C BC #### [facility] [address] [place] [address] Dr. Caitlin Martinez mAMP Negative Normal NEGATIVE [facility] Comment on above: Performed By: #### C BC #### [facility] [address] [place] [address] Dr. Caitlin Martinez MTD Negative Normal NEGATIVE [facility] Comment on above: Performed By: #### C BC #### [facility] [address] [place] [address] Dr. Caitlin Martinez OPI Negative Normal NEGATIVE [facility] Comment on above: Performed By: #### C BC #### [facility] [address] [address] [address] Caitlin Martinez OXY Negative Normal NEGATIVE [facility] Comment on above: Performed By: #### C BC #### [facility] [address] [address] [address] Caitlin Martinez PCP Negative Normal NEGATIVE [facility] Comment on above: Performed By: #### C BC #### [facility] [address] [address] [address] Caitlin Martinez PPX Negative Normal NEGATIVE [facility] Comment on above: Performed By: #### C BC #### [facility] [address] [address] [address] Caitlin Martinez TCA Negative Normal NEGATIVE [facility] Comment on above: Performed By: #### C BC #### [facility] [address] [place] [address] Dr. Caitlin Martinez THC Negative Normal NEGATIVE [facility] Comment on above: Performed By: #### C BC #### [facility] [address] [place] [address] Dr. Caitlin Martinez TYPE AND SCREENon 02-08-2022 TYPE AND SCREEN Negative Normal [facility] Comment on above: Performed By: #### I HORACIO #### [facility] [address] [place] [address] Dr. Caitlin Martinez US PREG BIOPHY W [...] DAVID BLACKMON Date: 2022-02-05 16:28 Normal [facility] AMNISUREon 01-25-2022 AMNISURE Negative Normal NEGATIVE [facility] Comment on above: Performed By: #### A MNI #### [facility] [address] [place] [address] Dr. Caitlin Martinez CULTURE URINEon 01-25-2022 CULTURE URINE Culture Observations : No growth Normal [facility] Comment on above: Performed By: #### U RCX #### [facility] [address] [place] [address] Dr. Caitlin Martinez UA (CLEAN/CATCH) TEST DESK SUPERVISOR/MICRO I F IND.on 01-25-2022 Bilirubin Ql (U) Negative Normal NEGATIVE [facility] Comment on above: Performed By: #### C VDTBH #### [facility] [address] [place] [address] Dr. Caitlin Martinez Clarity (U) SL CLOUDY Abnormal CLEAR [facility] Comment on above: Performed By: #### C VDTBH #### [facility] [address] [place] [address] Dr. Caitlin Martinez Color (U) LT. YELLOW Normal YELLOW [facility] Comment on above: Performed By: #### C VDTBH #### [facility] [address] [place] [address] Dr. Caitlin Martinez Glucose Ql (U) Negative Normal NEGATIVE [facility] Comment on above: Performed By: #### C VDTBH #### [facility] [address] [place] [address] Dr. Caitlin Martinez Hemoglobin Ql (U) TRACE-INTACT Abnormal NEGATIVE [facility] Comment on above: Performed By: #### C VDTBH #### [facility] [address] [place] [address] Dr. Caitlin Martinez Ketones Ql (U) Negative Normal NEGATIVE [facility] Comment on above: Performed By: #### C VDTBH #### [facility] [address] [place] [address] Dr. Caitlin Martinez LEUKOCYTES TRACE Abnormal NEGATIVE [facility] Comment on above: Performed By: #### C VDTBH #### [facility] [address] [place] [address] Dr. Caitlin Martinez Nitrite Ql (U) Negative Normal NEGATIVE [facility] Comment on above: Performed By: #### C VDTBH #### [facility] [address] [place] [address] Dr. Caitlin Martinez pH (U) 6.5 [pH] Normal 5-9 [facility] Comment on above: Performed By: #### C VDTBH #### [facility] [address] [place] [address] Dr. Caitlin Martinez SPEC GRAVITY 1.020 Normal 1.005-<=1.025 [facility] Comment on above: Performed By: #### C VDTBH #### [facility] [address] [place] [address] Dr. Caitlin Martinez UA PROTEIN Negative Normal NEGATIVE/ TRACE [facility] Comment on above: Performed By: #### C VDTBH #### [facility] [address] [place] [address] Dr. Caitlin Martinez UR MICRO IND INDICATED Normal [facility] Comment on above: Performed By: #### C VDTBH #### [facility] [address] [place] [address] Dr. Caitlin Martinez Urobilinogen Qn (U) 0.2 {Barbara'U}/dL Normal 0.2 - 1. 0 [facility] Comment on above: Performed By: #### C VDTBH #### [facility] [address] [place] [address] Dr. Caitlin Martinez URINE MICROSCOPIC ONLYon BACTERIA MODERATE Abnormal NONE SEEN [facility] Comment on above: Performed By: #### C VDTBH #### [facility] [address] [place] [address] Dr. Caitlin Martinez Bacteria identified Cx Nom (U) INDICATED Normal [facility] Comment on above: Performed By: #### C VDTBH #### [facility] [address] [place] [address] Dr. Caitlin Martinez CAST NONE SEEN Normal NONE SEEN [facility] Comment on above: Performed By: #### C VDTBH #### [facility] [address] [place] [address] Dr. Caitlin Martinez Crystals LM Nom (Urine sed) NONE SEEN Normal NONE SEEN [facility] Comment on above: Performed By: #### C VDTBH #### [facility] [address] [place] [address] Dr. Caitlin Martinez Epithelial cells LM Ql (Urine sed) FEW Abnormal NONE SEEN /RARE [facility] Comment on above: Performed By: #### C VDTBH #### [facility] [address] [place] [address] Dr. Caitlin Martinez MUCOUS TRACE Abnormal NONE SEEN [facility] Comment on above: Performed By: #### C VDTBH #### [facility] [address] [place] [address] Dr. Caitlin Martinez RBC 2-5 Abnormal 0-2 [facility] Comment on above: Performed By: #### C VDTBH #### [facility] [address] [place] [address] Dr. Caitlin Martinez WBC 0-2 Abnormal NONE SEEN [facility] Comment on above: Performed By: #### C VDTBH #### [facility] [address] [place] [address] Dr. Caitlin Martinez AMYLASEon 01-16-2022 Amylase [Catalytic activity/Vol] 49 U/L Normal 25-115 [facility] Comment on above: Performed By: #### C VDTBH #### [facility] [address] [place] [address] Dr. Caitlin Martinez BUNon 01-16-2022 Urea nitrogen [Mass/Vol] 3.0 mg/dL Critically low 7.0-18.0 [facility] Comment on above: Performed By: #### C BC #### [facility] [address] [place] [address] Dr. Caitlin Martinez CBC AUTO DIFFon 01-16-2022 BASO # 0.1 103/ul Normal 0.0-0.1 [facility] Comment on above: Performed By: #### U RCX #### [facility] [address] [place] [address] Dr. Caitlin Martinez Basophils/100 WBC (Bld) 0.6 % Normal 0.2-2.0 [facility] Comment on above: Performed By: #### U RCX #### [facility] [address] [address] [address] Caitlin Martinez EO # 0.3 103/ul Normal 0.0-0.7 [facility] Comment on above: Performed By: #### U RCX #### [facility] [address] [address] [address] Caitlin Martinez Eosinophils/100 WBC (Bld) 2.6 % Normal 0.9-7.0 [facility] Comment on above: Performed By: #### U RCX #### [facility] [address] [place] [address] Dr. Caitlin Martinez Erythrocyte distribution width (RBC) [Ratio] 14.4 % Normal 11.0-15.0 [facility] Comment on above: Performed By: #### U RCX #### [facility] [address] [place] [address] Dr. Caitlin Martinez Hematocrit (Bld) [Volume fraction] 28.4 % Critically low 36.0-48.0 [facility] Comment on above: Performed By: #### U RCX #### [facility] [address] [place] [address] Dr. Caitlin Martinez Hemoglobin (Bld) [Mass/Vol] 9.0 g/dL Critically low 12.0-16.0 [facility] Comment on above: Performed By: #### U RCX #### [facility] [address] [place] [address] Dr. Caitlin Martinez IG # 0.11 10e3/ul Critically high 0.00-0.03 [facility] Comment on above: Performed By: #### U RCX #### [facility] [address] [place] [address] Dr. Caitlin Martinez IG % 1.1 % Critically high 0.0-0.5 [facility] Comment on above: Performed By: #### U RCX #### [facility] [address] [place] [address] Dr. Caitlin Martinez LYMPH # 2.2 103/ul Normal 1.2-3.8 [facility] Comment on above: Performed By: #### U RCX #### [facility] [address] [address] [address] Caitlin Martinez Lymphocytes/100 WBC (Bld) 21.0 % Normal 20.5-60.0 [facility] Comment on above: Performed By: #### U RCX #### [facility] [address] [address] [address] Caitlin Martinez MANUAL DIFF REQ NO Normal [facility] Comment on above: Performed By: #### U RCX #### [facility] [address] [address] [address] Caitlin Martinez MCH (RBC) [Entitic mass] 28.2 pg Normal 26.7-34.0 [facility] Comment on above: Performed By: #### U RCX #### [facility] [address] [place] [address] Dr. Caitlin Martinez MCHC (RBC) [Mass/Vol] 31.7 g/dL Normal 29.9-35.2 [facility] Comment on above: Performed By: #### U RCX #### [facility] [address] [address] [address] Caitlin Martinez MCV (RBC) [Entitic vol] 89.0 fL Normal 81.0-99.0 [facility] Comment on above: Performed By: #### U RCX #### [facility] [address] [address] [address] Caitlin Martinez MONO # 0.9 103/ul Critically high 0.3-0.8 [facility] Comment on above: Performed By: #### U RCX #### [facility] [address] [place] [address] Dr. Caitlin Matrinez Monocytes/100 WBC (Bld) 8.9 % Normal 1.7-12.0 [facility] Comment on above: Performed By: #### U RCX #### [facility] [address] [address] [address] Caitlin Martinez NEUT # 6.8 103/ul Critically high 1.4-6.5 [facility] Comment on above: Performed By: #### U RCX #### [facility] [address] [address] [address] Caitlin Martinez Neutrophils/100 WBC (Bld) 65.8 % Normal 43.0-75.0 [facility] Comment on above: Performed By: #### U RCX #### [facility] [address] [address] [address] Caitlin Martinez Platelet mean volume (Bld) [Entitic vol] 8.6 fL Critically low 9.5-13.5 [facility] Comment on above: Performed By: #### U RCX #### [facility] [address] [address] [address] Caitlin Martinez PLT 322 103/ul Normal 150-450 [facility] Comment on above: Performed By: #### U RCX #### [facility] [address] [place] [address] Dr. Caitlin Martinez RBC 3.19 106/ul Critically low 4.20-5.40 [facility] Comment on above: Performed By: #### U RCX #### [facility] [address] [place] [address] Dr. Caitlin Martinez WBC 10.3 103/ul Normal 4.0-11.0 [facility] Comment on above: Performed By: #### U RCX #### [facility] [address] [place] [address] Dr. Caitlin Martinez CREATININEon 01-16-2022 Creatinine [Mass/Vol] 0.55 mg/dL Normal 0.55-1.02 [facility] Comment on above: Performed By: #### C VDTBH #### [facility] [address] [place] [address] Dr. Caitlin Martinez EGFR-AF ALGERIAN >60 Normal >=60 [facility] Comment on above: Performed By: #### C VDTBH #### [facility] [address] [place] [address] Dr. Caitlin Martinez EGFR-NON AF ALGERIAN >60 Normal >=60 [facility] Comment on above: Performed By: #### C VDTBH #### [facility] [address] [place] [address] Dr. Caitlin Martinez ELECTROLYTESon 01-16-2022 Anion gap [Moles/Vol] 13.6 mmol/L Normal [facility] Comment on above: Performed By: #### C VDTBH #### [facility] [address] [place] [address] Dr. Caitlin Martinez Chloride [Moles/Vol] 106 mmol/L Normal 98-107 [facility] Comment on above: Performed By: #### C VDTBH #### [facility] [address] [place] [address] Dr. Caitlin Martinez CO2 [Moles/Vol] 22.9 mmol/L Normal 21.0-32.0 [facility] Comment on above: Performed By: #### C VDTBH #### [facility] [address] [place] [address] Dr. Caitlin Martinez Potassium [Moles/Vol] 3.5 mmol/L Normal 3.5-5.1 [facility] Comment on above: Performed By: #### C VDTBH #### [facility] [address] [address] [address] Caitlin Martinez Sodium [Moles/Vol] 139 mmol/L Normal 136-145 [facility] Comment on above: Performed By: #### C VDTBH #### [facility] [address] [place] [address] Dr. Caitlin Martinez LIPASEon 01-16-2022 Lipase [Catalytic activity/Vol] 66.0 U/L Critically low 73.0-393.0 [facility] Comment on above: Performed By: #### C BC #### [facility] [address] [address] [address] Caitlin Martinez SGOTon 01-16-2022 AST [Catalytic activity/Vol] 12 U/L Critically low 15-37 [facility] Comment on above: Performed By: #### C VDTBH #### [facility] [address] [place] [address] Dr. Caitlin Martinez SGPTon 01-16-2022 ALT [Catalytic activity/Vol] 9 U/L Critically low 14-59 [facility] Comment on above: Performed By: #### C VDTBH #### [facility] [address] [place] [address] Dr. Caitlin Martinez CBC AUTO DIFFon 01-15-2022 BASO # 0.1 103/ul Normal 0.0-0.1 [facility] Comment on above: Performed By: #### C VDTBH #### [facility] [address] [place] [address] Dr. Caitlin Martinez Basophils/100 WBC (Bld) 0.4 % Normal 0.2-2.0 [facility] Comment on above: Performed By: #### C VDTBH #### [facility] [address] [place] [address] Dr. Caitlin Martinez EO # 0.2 103/ul Normal 0.0-0.7 [facility] Comment on above: Performed By: #### C VDTBH #### [facility] [address] [place] [address] Dr. Caitlin Martinez Eosinophils/100 WBC (Bld) 1.4 % Normal 0.9-7.0 [facility] Comment on above: Performed By: #### C VDTBH #### [facility] [address] [place] [address] Dr. Caitlin Martinez Erythrocyte distribution width (RBC) [Ratio] 14.1 % Normal 11.0-15.0 [facility] Comment on above: Performed By: #### C VDTBH #### [facility] [address] [place] [address] Dr. Caitlin Martinez Hematocrit (Bld) [Volume fraction] 28.4 % Critically low 36.0-48.0 [facility] Comment on above: Performed By: #### C VDTBH #### [facility] [address] [place] [address] Dr. Caitlin Martinez Hemoglobin (Bld) [Mass/Vol] 9.0 g/dL Critically low 12.0-16.0 [facility] Comment on above: Performed By: #### C VDTBH #### [facility] [address] [place] [address] Dr. Caitlin Martinez IG # 0.18 10e3/ul Critically high 0.00-0.[address] [facility] Comment on above: Performed By: #### C VDTBH #### [facility] [address] [place] [address] Dr. Caitlin Martinez IG % 1.3 % Critically high 0.0-0.5 [facility] Comment on above: Performed By: #### C VDTBH #### [facility] [address] [address] [address] Caitlin Martinez LYMPH # 2.4 103/ul Normal 1.2-3.8 [facility] Comment on above: Performed By: #### C VDTBH #### [facility] [address] [place] [address] Dr. Caitlin Martinez Lymphocytes/100 WBC (Bld) 16.8 % Critically low 20.5-60.0 [facility] Comment on above: Performed By: #### C VDTBH #### [facility] [address] [place] [address] Dr. Caitlin Martinez MANUAL DIFF REQ NO Normal [facility] Comment on above: Performed By: #### C VDTBH #### [facility] [address] [place] [address] Dr. Caitlin Martinez MCH (RBC) [Entitic mass] 27.9 pg Normal 26.7-34.0 [facility] Comment on above: Performed By: #### C VDTBH #### [facility] [address] [address] [address] Caitlin Martinez MCHC (RBC) [Mass/Vol] 31.7 g/dL Normal 29.9-35.2 [facility] Comment on above: Performed By: #### C VDTBH #### [facility] [address] [place] [address] Dr. Caitlin Martinez MCV (RBC) [Entitic vol] 87.9 fL Normal 81.0-99.0 [facility] Comment on above: Performed By: #### C VDTBH #### [facility] [address] [address] [address] Caitlin Martinez MONO # 0.9 103/ul Critically high 0.3-0.8 [facility] Comment on above: Performed By: #### C VDTBH #### [facility] [address] [place] [address] Dr. Caitlin Martinez Monocytes/100 WBC (Bld) 6.7 % Normal 1.7-12.0 [facility] Comment on above: Performed By: #### C VDTBH #### [facility] [address] [place] [address] Dr. Caitlin Martinez NEUT # 10.3 103/ul Critically high 1.4-6.5 [facility] Comment on above: Performed By: #### C VDTBH #### [facility] [address] [place] [address] Dr. Caitlin Martinez Neutrophils/100 WBC (Bld) 73.4 % Normal 43.0-75.0 [facility] Comment on above: Performed By: #### C VDTBH #### [facility] [address] [place] [address] Dr. Caitlin Martinez Platelet mean volume (Bld) [Entitic vol] 9.0 fL Critically low 9.5-13.5 [facility] Comment on above: Performed By: #### C VDTBH #### [facility] [address] [place] [address] Dr. Caitlin Martinez PLT 318 103/ul Normal 150-450 [facility] Comment on above: Performed By: #### C VDTBH #### [facility] [address] [place] [address] Dr. Caitlin Martinez RBC 3.23 106/ul Critically low 4.20-5.40 [facility] Comment on above: Performed By: #### C VDTBH #### [facility] [address] [place] [address] Dr. Caitlin Martinez WBC 14.0 103/ul Critically high 4.0-11.0 [facility] Comment on above: Performed By: #### C VDTBH #### [facility] [address] [address] [address] ABD/PELVIS WO CONon [...] DAVID BLACKMON Date: 2022-01-15 16:31 Normal [facility] CULTURE URINEon 01-15-2022 CULTURE URINE Culture Observations : LIGHT GROWTH OF MIXED GENITAL COSME. NO POTENTIAL PATHOGENS SEEN. Normal [facility] Comment on above: Performed By: #### U RCX #### [facility] [address] [address] [address] Caitlin Martinez UA (CLEAN/CATCH) TEST DESK SUPERVISOR/MICRO I F IND.on 01-15-2022 Bilirubin Ql (U) Negative Normal NEGATIVE [facility] Comment on above: Performed By: #### C BC #### [facility] [address] [address] [address] Caitlin Martinez Clarity (U) CLEAR Normal CLEAR [facility] Comment on above: Performed By: #### C BC #### [facility] [address] [place] [address] Dr. Caitlin Martinez Color (U) LT. YELLOW Normal YELLOW [facility] Comment on above: Performed By: #### C BC #### [facility] [address] [place] [address] Dr. Caitlin Martinez Glucose Ql (U) Negative Normal NEGATIVE [facility] Comment on above: Performed By: #### C BC #### [facility] [address] [place] [address] Dr. Caitlin Martinez Hemoglobin Ql (U) Negative Normal NEGATIVE [facility] Comment on above: Performed By: #### C BC #### [facility] [address] [place] [address] Dr. Caitlin Martinez Ketones Ql (U) Negative Normal NEGATIVE [facility] Comment on above: Performed By: #### C BC #### [facility] [address] [place] [address] Dr. Caitlin Martinez LEUKOCYTES TRACE Abnormal NEGATIVE [facility] Comment on above: Performed By: #### C BC #### [facility] [address] [place] [address] Dr. Caitlin Martinez Nitrite Ql (U) Negative Normal NEGATIVE [facility] Comment on above: Performed By: #### C BC #### [facility] [address] [place] [address] Dr. Caitlin Martinez pH (U) 7.0 [pH] Normal 5-9 [facility] Comment on above: Performed By: #### C BC #### [facility] [address] [place] [address] Dr. Caitlin Martinez SPEC GRAVITY 1.010 Normal 1.005-<=1.025 [facility] Comment on above: Performed By: #### C BC #### [facility] [address] [place] [address] Dr. Caitlin Martinez UA PROTEIN Negative Normal NEGATIVE/ TRACE [facility] Comment on above: Performed By: #### C BC #### [facility] [address] [place] [address] Dr. Caitlin Martinez UR MICRO IND INDICATED Normal [facility] Comment on above: Performed By: #### C BC #### [facility] [address] [place] [address] Dr. Caitlin Martinez Urobilinogen Qn (U) 0.2 {Barbara'U}/dL Normal 0.2 - 1. 0 [facility] Comment on above: Performed By: #### C BC #### [facility] [address] [place] [address] Dr. Caitlin Martinez URINE MICROSCOPIC ONLYon BACTERIA MODERATE Abnormal NONE SEEN [facility] Comment on above: Performed By: #### C BC #### [facility] [address] [place] [address] Dr. Caitlin Martinez Bacteria identified Cx Nom (U) INDICATED Normal [facility] Comment on above: Performed By: #### C BC #### [facility] [address] [place] [address] Dr. Caitlin Martinez CAST NONE SEEN Normal NONE SEEN [facility] Comment on above: Performed By: #### C BC #### [facility] [address] [place] [address] Dr. Caitlin Martinez Crystals LM Nom (Urine sed) NONE SEEN Normal NONE SEEN [facility] Comment on above: Performed By: #### C BC #### [facility] [address] [place] [address] Dr. Caitlin Martinez Epithelial cells LM Ql (Urine sed) MODERATE Abnormal NONE SEEN /RARE [facility] Comment on above: Performed By: #### C BC #### [facility] [address] [place] [address] Dr. Caitlin Martinez MUCOUS NONE SEEN Normal NONE SEEN [facility] Comment on above: Performed By: #### C BC #### [facility] [address] [place] [address] Dr. Caitlin Martinez RBC NONE SEEN Abnormal 0-2 [facility] Comment on above: Performed By: #### C BC #### [facility] [address] [place] [address] Dr. Caitlin Martinez WBC 2-5 Abnormal NONE SEEN [facility] Comment on above: Performed By: #### C BC #### [facility] [address] [address] [address] Caitlin Martinez US APPENDIXon 01-15-2022 US [...] DAVID BLACKMON Date: 2022-01-15 14:14 Normal [facility] US PREG GROWTHon 01-15-2022 US PREG [...] DAVID BLACKMON Date: 2022-01-15 10:59 Normal [facility] US PREG PLACENTAon US PREG PLACENTA [...] DAVID BLACKMON Date: 2022-01-15 10:57 Normal [facility] UA (CLEAN/CATCH) TEST DESK SUPERVISOR/MICRO I F IND.on 12-29-2021 Bilirubin Ql (U) Negative Normal NEGATIVE [facility] Comment on above: Performed By: #### C BC #### [facility] [address] [place] [address] Dr. Caitlin Martinez Clarity (U) CLEAR Normal CLEAR [facility] Comment on above: Performed By: #### C BC #### [facility] [address] [place] [address] Dr. Caitlin Martinez Color (U) LT. YELLOW Normal YELLOW [facility] Comment on above: Performed By: #### C BC #### [facility] [address] [place] [address] Dr. Caitlin Martinez Glucose Ql (U) Negative Normal NEGATIVE [facility] Comment on above: Performed By: #### C BC #### [facility] [address] [place] [address] Dr. Caitlin Martinez Hemoglobin Ql (U) Negative Normal NEGATIVE [facility] Comment on above: Performed By: #### C BC #### [facility] [address] [place] [address] Dr. Caitlin Martinez Ketones Ql (U) Negative Normal NEGATIVE [facility] Comment on above: Performed By: #### C BC #### [facility] [address] [place] [address] Dr. Caitlin Martinez LEUKOCYTES Negative Normal NEGATIVE [facility] Comment on above: Performed By: #### C BC #### [facility] [address] [place] [address] Dr. Caitlin Martinez Nitrite Ql (U) Negative Normal NEGATIVE [facility] Comment on above: Performed By: #### C BC #### [facility] [address] [place] [address] Dr. Caitlin Martinez pH (U) 6.5 [pH] Normal 5-9 [facility] Comment on above: Performed By: #### C BC #### [facility] [address] [place] [address] Dr. Caitlin Martinez SPEC GRAVITY 1.020 Normal 1.005-<=1.025 [facility] Comment on above: Performed By: #### C BC #### [facility] [address] [place] [address] Dr. Caitlin Martinez UA PROTEIN Negative Normal NEGATIVE/ TRACE [facility] Comment on above: Performed By: #### C BC #### [facility] [address] [place] [address] Dr. Caitlin Martinez UR MICRO IND NOT INDICATED Normal [facility] Comment on above: Performed By: #### C BC #### [facility] [address] [place] [address] Dr. Caitlin Martinez Urobilinogen Qn (U) 1.0 {Barbara'U}/dL Normal 0.2 - 1. 0 [facility] Comment on above: Performed By: #### C BC #### [facility] [address] [place] [address] Dr. Caitlin Martinez US PREG CERVICAL LENGTHon [...] KIRK OATES Date: 2021-12-29 15:53 Normal [facility] UA (CLEAN/CATCH) TEST DESK SUPERVISOR/MICRO I F IND.on 12-18-2021 Bilirubin Ql (U) Negative Normal NEGATIVE [facility] Comment on above: Performed By: #### C BC #### [facility] [address] [place] [address] Dr. Caitlin Martinez Clarity (U) CLEAR Normal CLEAR [facility] Comment on above: Performed By: #### C BC #### [facility] [address] [place] [address] Dr. Caitlin Martinez Color (U) YELLOW Normal YELLOW [facility] Comment on above: Performed By: #### C BC #### [facility] [address] [address] [address] Caitlin Martinez Glucose Ql (U) Negative Normal NEGATIVE [facility] Comment on above: Performed By: #### C BC #### [facility] [address] [address] [address] Caitlin Martinez Hemoglobin Ql (U) Negative Normal NEGATIVE [facility] Comment on above: Performed By: #### C BC #### [facility] [address] [address] [address] Caitlin Martinez Ketones Ql (U) TRACE Abnormal NEGATIVE [facility] Comment on above: Performed By: #### C BC #### [facility] [address] [place] [address] Dr. Caitlin Martinez LEUKOCYTES Negative Normal NEGATIVE [facility] Comment on above: Performed By: #### C BC #### [facility] [address] [place] [address] Dr. Caitlin Martinez Nitrite Ql (U) Negative Normal NEGATIVE [facility] Comment on above: Performed By: #### C BC #### [facility] [address] [place] [address] Dr. Caitlin Martinez pH (U) 6.0 [pH] Normal 5-9 [facility] Comment on above: Performed By: #### C BC #### [facility] [address] [place] [address] Dr. Caitlin Martinez SPEC GRAVITY 1.025 Normal 1.005-<=1.025 [facility] Comment on above: Performed By: #### C BC #### [facility] [address] [place] [address] Dr. Caitlin Martinez UA PROTEIN Negative Normal NEGATIVE/ TRACE [facility] Comment on above: Performed By: #### C BC #### [facility] [address] [place] [address] Dr. Caitlin Martinez UR MICRO IND NOT INDICATED Normal [facility] Comment on above: Performed By: #### C BC #### [facility] [address] [place] [address] Dr. Caitlin Martinez Urobilinogen Qn (U) 4 {Barbara'U}/dL Abnormal 0.2 - 1.0 [facility] Comment on above: Performed By: #### C BC #### [facility] [address] [place] [address] Dr. Caitlin Martinez RHOGAMon 11-28-2021 RHOGAM Status Information Issued Quantity 1 Product ID Rh Immune Globulin Lot Number [id number] Issue Date/Time [id number] Normal [facility] Comment on above: Performed By: #### I HORACIO #### [facility] [address] [place] [address] Dr. Caitlin Martinez TYPE AND SCREENon 11-27-2021 TYPE AND SCREEN Negative Normal [facility] Comment on above: Performed By: #### T NS #### [facility] [address] [place] [address] Dr. Caitlin Martinez CULTURE URINEon 11-23-2021 CULTURE URINE Culture Observations : No growth Normal [facility] Comment on above: Performed By: #### I HORACIO #### [facility] [address] [place] [address] Dr. Caitlin Martinez UA (CLEAN/CATCH) TEST DESK SUPERVISOR/MICRO I F IND.on 11-23-2021 Bilirubin Ql (U) Negative Normal NEGATIVE [facility] Comment on above: Performed By: #### U RCX #### [facility] [address] [place] [address] Dr. Caitlin Martinez Clarity (U) CLEAR Normal CLEAR [facility] Comment on above: Performed By: #### U RCX #### [facility] [address] [place] [address] Dr. Caitlin Martinez Color (U) LT. YELLOW Normal YELLOW [facility] Comment on above: Performed By: #### U RCX #### [facility] [address] [place] [address] Dr. Caitlin Martinez Glucose Ql (U) Negative Normal NEGATIVE [facility] Comment on above: Performed By: #### U RCX #### [facility] [address] [place] [address] Dr. Caitlin Martinez Hemoglobin Ql (U) Negative Normal NEGATIVE [facility] Comment on above: Performed By: #### U RCX #### [facility] [address] [place] [address] Dr. Caitlin Martinez Ketones Ql (U) Negative Normal NEGATIVE [facility] Comment on above: Performed By: #### U RCX #### [facility] [address] [place] [address] Dr. Caitlin Martinez LEUKOCYTES SMALL Abnormal NEGATIVE [facility] Comment on above: Performed By: #### U RCX #### [facility] [address] [place] [address] Dr. Caitlin Martinez Nitrite Ql (U) Negative Normal NEGATIVE [facility] Comment on above: Performed By: #### U RCX #### [facility] [address] [place] [address] Dr. Caitlin Martinez pH (U) 6.5 [pH] Normal 5-9 [facility] Comment on above: Performed By: #### U RCX #### [facility] [address] [place] [address] Dr. Caitlin Martinez SPEC GRAVITY 1.010 Normal 1.005-<=1.025 [facility] Comment on above: Performed By: #### U RCX #### [facility] [address] [place] [address] Dr. Caitlin Martinez UA PROTEIN Negative Normal NEGATIVE/ TRACE [facility] Comment on above: Performed By: #### U RCX #### [facility] [address] [place] [address] Dr. Caitlin Martinez UR MICRO IND INDICATED Normal [facility] Comment on above: Performed By: #### U RCX #### [facility] [address] [place] [address] Dr. Caitlin Martinez Urobilinogen Qn (U) 0.2 {Barbara'U}/dL Normal 0.2 - 1. 0 [facility] Comment on above: Performed By: #### U RCX #### [facility] [address] [place] [address] Dr. Caitlin Martinez URINE MICROSCOPIC ONLYon BACTERIA TRACE Abnormal NONE SEEN [facility] Comment on above: Performed By: #### U RCX #### [facility] [address] [place] [address] Dr. Caitlin Martinez Bacteria identified Cx Nom (U) INDICATED Normal [facility] Comment on above: Performed By: #### U RCX #### [facility] [address] [place] [address] Dr. Caitlin Martinez CAST SEEN Abnormal NONE SEEN [facility] Comment on above: Performed By: #### U RCX #### [facility] [address] [place] [address] Dr. Caitlin Martinez Crystals LM Nom (Urine sed) SEEN Abnormal NONE SEEN [facility] Comment on above: Performed By: #### U RCX #### [facility] [address] [place] [address] Dr. Caitlin Martinez Epithelial cells LM Ql (Urine sed) RARE Normal NONE SEEN /RARE [facility] Comment on above: Performed By: #### U RCX #### [facility] [address] [place] [address] Dr. Caitlin Martinez MUCOUS TRACE Abnormal NONE SEEN [facility] Comment on above: Performed By: #### U RCX #### [facility] [address] [place] [address] Dr. Caitlin Martinez RBC 0-2 Normal 0-2 [facility] Comment on above: Performed By: #### U RCX #### [facility] [address] [place] [address] Dr. Caitlin Martinez WBC 2-5 Abnormal NONE SEEN [facility] Comment on above: Performed By: #### U RCX #### [facility] [address] [place] [address] Dr. Caitlin Martinez GLUCOSE - 1HRon 11-06-2021 Glucose [Mass/Vol] 131 mg/dL Critically high 74-106 T [facility] Comment on above: Performed By: #### I HORACIO #### [facility] [address] [place] [address] Dr. Caitlin Martinez HEMOGRAM AND PLATELon 2021 Hematocrit (Bld) [Volume fraction] 34.2 % Critically low 36.0-48.0 [facility] Comment on above: Performed By: #### C BC #### [facility] [address] [place] [address] Dr. Caitlin Martinez Hemoglobin (Bld) [Mass/Vol] 11.3 g/dL Critically low 12.0-16.0 [facility] Comment on above: Performed By: #### C BC #### [facility] [address] [place] [address] Dr. Caitlin Martinez MCH (RBC) [Entitic mass] 31.7 pg Normal 26.7-34.0 [facility] Comment on above: Performed By: #### C BC #### [facility] [address] [place] [address] Dr. Caitlin Martinez MCHC (RBC) [Mass/Vol] 33.0 g/dL Normal 29.9-35.2 [facility] Comment on above: Performed By: #### C BC #### [facility] [address] [place] [address] Dr. Caitlin Martinez MCV (RBC) [Entitic vol] 96.1 fL Normal 81.0-99.0 [facility] Comment on above: Performed By: #### C BC #### [facility] [address] [place] [address] Dr. Caitlin Martinez PLT 372 103/ul Normal 150-450 [facility] Comment on above: Performed By: #### C BC #### [facility] [address] [place] [address] Dr. Caitlin Martinez RBC 3.56 106/ul Critically low 4.20-5.40 [facility] Comment on above: Performed By: #### C BC #### [facility] [address] [place] [address] Dr. Caitlin Martinez WBC 10.1 103/ul Normal 4.0-11.0 [facility] Comment on above: Performed By: #### C BC #### [facility] [address] [place] [address] Dr. Caitlin Martinez CHLAMYDIA/GONOCOCCUS JONATAN (SW AB/URINE/PAPon 10-31-2021 Chlamydia trachomatis, JONATAN Negative Normal Negative [facility] Comment on above: Performed By: #### C BC #### [facility] [address] [address] [address] Caitlin Martinez Neisseria gonorrhoeae, JONATAN Negative Normal Negative [facility] Comment on above: Performed By: #### C BC #### [facility] [address] [address] [address] Caitlin Martinez VAGINITIS/VAGINOSIS DNA PROB Paramjit 10-29-2021 Selena species Negative Normal Negative [facility] Comment on above: Performed By: #### U RCX #### [facility] [address] [address] [address] Caitlin Martinez Gardnerella vaginalis Negative Normal Negative [facility] Comment on above: Performed By: #### U RCX #### [facility] [address] [address] [address] Caitlin Martinez Trichomonas vaginalis Negative Normal Negative [facility] Comment on above: Performed By: #### U RCX #### [facility] [address] [address] [address] Caitlin Martinez US PREG INCOMPLETE ANATOMYon [...] DAVID BLACKMON Date: 2021-10-26 12:05 Normal [facility] CBC W MANUAL DIFFon 10-25-19 22 ATYPICAL LYMPH # Normal [facility] Comment on above: Performed By: #### U RCX #### [facility] [address] [address] [address] Caitlin Martinez ATYPICAL LYMPH % Normal [facility] Comment on above: Performed By: #### U RCX #### [facility] [address] [address] [address] Caitlin Martinez BAND # 0.1 103/ul Normal 0.0-0.3 [facility] Comment on above: Performed By: #### U RCX #### [facility] [address] [address] [address] Caitlin Martinez BAND % 1 % Normal 0-5 [facility] Comment on above: Performed By: #### U RCX #### [facility] [address] [address] [address] Caitlin Martinez BASOM # 0.00 103/ul Normal 0.00-0.10 [facility] Comment on above: Performed By: #### U RCX #### [facility] [address] [place] [address] Dr. Caitlin Martinez BASOM % 0.0 % Critically low 0.2-2.0 [facility] Comment on above: Performed By: #### U RCX #### [facility] [address] [place] [address] Dr. Caitlin Martinez BLAST # Normal [facility] Comment on above: Performed By: #### U RCX #### [facility] [facility] [address] [place] [address] Dr. Caitlin Martinez BLAST % Normal [facility] Comment on above: Performed By: #### U RCX #### [facility] [address] [address] [address] Caitlin Martinez CORRECTED WBC Normal 4.0-11.0 [facility] Comment on above: Performed By: #### U RCX #### [facility] [address] [address] [address] Caitlin Martinez EOS # 0.12 103/ul Normal 0.00-0.70 [facility] Comment on above: Performed By: #### U RCX #### [facility] [address] [place] [address] Dr. Caitlin Martinez EOS% 1.0 % Normal 0.9-7.0 [facility] Comment on above: Performed By: #### U RCX #### [facility] [address] [address] [address] Caitlin Martinez HCT 31.5 % Critically low 36.0-48.0 [facility] Comment on above: Performed By: #### U RCX #### [facility] [address] [address] [address] Caitlin Martinez HGB 10.5 g/dl Critically low 12.0-16.0 [facility] Comment on above: Performed By: #### U RCX #### [facility] [address] [address] [address] Caitlin Martinez LYMPHM # 0.37 103/ul Critically low 1.20-3.80 [facility] Comment on above: Performed By: #### U RCX #### [facility] [address] [address] [address] Caitlin Martinez LYMPHM% 3.0 % Critically low 20.5-60.0 [facility] Comment on above: Performed By: #### U RCX #### [facility] [address] [address] [address] Caitlin Martinez MCH 31.8 pg Normal 26.7-34.0 [facility] Comment on above: Performed By: #### U RCX #### [facility] [address] [address] [address] Caitlin Martinez MCHC 33.3 g/dl Normal 29.9-35.2 [facility] Comment on above: Performed By: #### U RCX #### [facility] [address] [address] [address] Caitlin Martinez MCV 95.5 fL Normal 81.0-99.0 [facility] Comment on above: Performed By: #### U RCX #### [facility] [address] [address] [address] Caitlin Martinez METAMYELOCYTE # Normal [facility] Comment on above: Performed By: #### U RCX #### [facility] [address] [place] [address] Dr. Caitlin Martinez METAMYELOCYTE % Normal [facility] Comment on above: Performed By: #### U RCX #### [facility] [address] [place] [address] Dr. Caitlin Martinez MONOM# 0.73 103/ul Normal 0.30-0.80 [facility] Comment on above: Performed By: #### U RCX #### [facility] [address] [place] [address] Dr. Caitlin Martinez MONOM% 6.0 % Normal 1.7-12.0 [facility] Comment on above: Performed By: #### U RCX #### [facility] [address] [place] [address] Dr. Caitlin Martinez MPV 9.5 fL Normal 9.5-13.5 [facility] Comment on above: Performed By: #### U RCX #### [facility] [address] [place] [address] Dr. Caitlin Martinez MYELOCYTE # Normal [facility] Comment on above: Performed By: #### U RCX #### [facility] [address] [place] [address] Dr. Caitlin Martinez MYELOCYTE % Normal [facility] Comment on above: Performed By: #### U RCX #### [facility] [address] [place] [address] Dr. Caitlin Martinez NRBC Normal [facility] Comment on above: Performed By: #### U RCX #### [facility] [address] [place] [address] Dr. Caitlin Martinez PLT 275 103/ul Normal 150-450 [facility] Comment on above: Performed By: #### U RCX #### [facility] [address] [place] [address] Dr. Caitlin Martinez RBC 3.30 106/ul Critically low 4.20-5.40 [facility] Comment on above: Performed By: #### U RCX #### [facility] [address] [place] [address] Dr. Caitlin Martinez RDW 13.6 % Normal 11.0-15.0 [facility] Comment on above: Performed By: #### U RCX #### [facility] [address] [address] [address] Caitlin Martinez SEG # 10.86 103/ul Critically high 1.40-6.[address] [facility] Comment on above: Performed By: #### U RCX #### [facility] [address] [place] [address] Dr. Caitlin Martinez SEG % 89.0 % Critically high 43.0-75.0 [facility] Comment on above: Performed By: #### U RCX #### [facility] [address] [place] [address] Dr. Caitlin Martinez WBC 12.2 103/ul Critically high 4.0-11.0 [facility] Comment on above: Performed By: #### U RCX #### [facility] [address] [place] [address] Dr. Caitlin Martinez ER URINE PROFILEon 2 Bilirubin Ql (U) Negative Normal NEGATIVE [facility] Comment on above: Performed By: #### C VDTBH #### [facility] [address] [place] [address] Dr. Caitlin Martinez Clarity (U) SL CLOUDY Abnormal CLEAR [facility] Comment on above: Performed By: #### C VDTBH #### [facility] [address] [address] [address] Caitlin Martinez Color (U) YELLOW Normal YELLOW [facility] Comment on above: Performed By: #### C VDTBH #### [facility] [address] [place] [address] Dr. Caitlin Martinez ERUAHD A micrscopic examination will be performed if indicated. Normal [facility] Comment on above: Performed By: #### C VDTBH #### [facility] [address] [address] [address] Caitlin Martinez Glucose Ql (U) Negative Normal NEGATIVE The [facility] Comment on above: Performed By: #### C VDTBH #### [facility] [address] [place] [address] Dr. Caitlin Martinez Hemoglobin Ql (U) Negative Normal NEGATIVE [facility] Comment on above: Performed By: #### C VDTBH #### [facility] [address] [place] [address] Dr. Caitlin Martinez Ketones Ql (U) >=80 Abnormal NEGATIVE The [facility] Comment on above: Performed By: #### C VDTBH #### [facility] [address] [place] [address] Dr. Caitlin Martinez LEUKOCYTES Negative Normal NEGATIVE [facility] Comment on above: Performed By: #### C VDTBH #### [facility] [address] [place] [address] Dr. Caitlin Martinez Nitrite Ql (U) Negative Normal NEGATIVE [facility] Comment on above: Performed By: #### C VDTBH #### [facility] [address] [place] [address] Dr. Caitlin Martinez pH (U) 6.0 [pH] Normal 5-9 [facility] Comment on above: Performed By: #### C VDTBH #### [facility] [address] [place] [address] Dr. Caitlin Martinez SPEC GRAVITY 1.020 Normal 1.005-<=1.025 [facility] Comment on above: Performed By: #### C VDTBH #### [facility] [address] [place] [address] Dr. Caitlin Martinez UA PROTEIN Negative Normal NEGATIVE/ TRACE [facility] Comment on above: Performed By: #### C VDTBH #### [facility] [address] [place] [address] Dr. Caitlin Martinez UR MICRO IND NOT INDICATED Normal [facility] Comment on above: Performed By: #### C VDTBH #### [facility] [address] [place] [address] Dr. Caitlin Martinez Urobilinogen Qn (U) 1.0 {Barbara'U}/dL Normal 0.2 - 1. 0 [facility] Comment on above: Performed By: #### C VDTBH #### [facility] [address] [place] [address] Dr. Caitlin Martinez INFLUENZA A AND B [facility]on 10-[facility] Normal [facility] Comment on above: Result Comment: Nega tive for Flu B protein antigen. Infection due to Flu B cannot be ruled out. Flu B antigen in the sample may be below the detection limit of the test. Performed By: #### C VDTBH #### [facility] [address] [place] [address] Dr. Caitlin Martinez INFLUENZA A AG Positive Abnormal NEGATIVE SEE COMMENT [facility] Comment on above: Performed By: #### C VDTBH #### [facility] [address] [place] [address] Dr. Caitlin Martinez INFLUENZA B AG Negative Normal NEGATIVE SEE COMMENT [facility] Comment on above: Performed By: #### C VDTBH #### [facility] [address] [place] [address] Dr. Caitlin Martinez INFLUPOS SEE BELOW Normal [facility] Comment on above: Result Comment: NOTE : Live attenuated influenzae vaccine viruses can cause a positive result for a rapid influenza diagnostic test if administered up to 7 days prior to rapid testing. Performed By: #### C VDTBH #### [facility] [address] [place] [address] Dr. Caitlin Martinez INTERNAL CONTROLS Within Normal Limits Normal Wi thin Normal Limits [facility] Comment on above: Performed By: #### C VDTBH #### [facility] [address] [place] [address] Dr. Caitlin Martinez PROF CHEM 8 (BAS METB)on Anion gap [Moles/Vol] 14.4 mmol/L Normal [facility] Comment on above: Performed By: #### D IRCMB, ABID #### [facility] [address] [place] [address] Dr. Caitlin Martinez Calcium [Mass/Vol] 8.4 mg/dL Critically low 8.5-10.[address] [facility] Comment on above: Performed By: #### D IRCMRhina, ABID #### [facility] [address] [address] [address] Caitlin Martinez Chloride [Moles/Vol] 101 mmol/L Normal 98-107 [facility] Comment on above: Performed By: #### D IRCMB, ABID #### [facility] [address] [address] [address] Caitlin Martinez CO2 [Moles/Vol] 19.7 mmol/L Critically low 21.0-32.0 [facility] Comment on above: Performed By: #### D IRCMB, ABID #### [facility] [address] [address] [address] Caitlin Martinez Creatinine [Mass/Vol] 0.55 mg/dL Normal 0.55-1.02 [facility] Comment on above: Performed By: #### D IRCMB, ABID #### [facility] [address] [address] [address] Caitlin Martinez EGFR-AF ALGERIAN >60 Normal >=60 [facility] Comment on above: Performed By: #### D IRCMB, ABID #### [facility] [address] [address] [address] Caitlin Martinez EGFR-NON AF ALGERIAN >60 Normal >=60 [facility] Comment on above: Performed By: #### D IRCMB, ABID #### [facility] [address] [address] [address] Caitlin Martinez Glucose [Mass/Vol] 91 mg/dL Normal 74-106 [facility] Comment on above: Performed By: #### D IRCMB, ABID #### [facility] [address] [address] [address] Caitlin Martinez Potassium [Moles/Vol] 3.1 mmol/L Critically low 3.5-5.1 [facility] Comment on above: Performed By: #### D IRCMB, ABID #### [facility] [address] [address] [address] Caitlin Martinez Sodium [Moles/Vol] 132 mmol/L Critically low 136-[address] [facility] Comment on above: Performed By: #### D IRCMB, ABID #### [facility] [address] [place], [place] [address] Dr. Caitlin Martinez Urea nitrogen [Mass/Vol] 7.0 mg/dL Normal 7.0-18.0 [facility] Comment on above: Performed By: #### D IRCMB, ABID #### [facility] [address] [address] [address] Caitlin Martinez Urea nitrogen/Creatinine [Mass ratio] 12.7 mg/mg Normal [facility] Comment on above: Performed By: #### D IRCMB, ABID #### [facility] [address] [address] [address] Caitlin Martinez US PREG ANATOMY SINGLEon [...] DAVID BLACKMON Date: 2021-09-28 09:17 Normal [facility] CHEMISTRYOrdered By: SYSTEM SYSTEM on 06-21-2021 [place] [address] m[IU]/mL High 1 - 3 mIU/mL [facility] Remisol XR LUMBAR SPINE 2-3 VIEWS (S [...] gas pattern is nonobstructive. There is a hyuttkua-xl-padpw amount of stool burden. IMPRESSION: No malalignment. No acute compression deformity. Pavmfmzn-xb-akrzu amount of stool burden. [employer] Workstation ID: [id number] Dictated by: LUBA GARCÍA on [facility] Mar 05, 2020 4:09:51 PM EDT Transcribed by: KELVIN GUADALUPE on [facility] Mar 05, 2020 4:17:18 PM EDT Finalized by: LUBA GARCÍA on [facility] Mar 05, 2020 7:52:11 PM EDT Normal [facility] Comment on above: Order Comment: Injur y/Trauma or Illness?:Illness/Other How long have you had these symptoms (acute/chronic)?:Chronic Reason for exam?:low back pain History of cancer?:n Surgeries, chemotherapy, or radiation?:n Type of Exam?:Initial Additional signs and symptoms?:fibromyalgia XR Lumbar Spine 2-3 Views (S tandard)on 03-05-2020 No malalignment. No acute compression deformity. Utwqnade-iv-jngit amount of stool burden. [employer] Workstation ID: [id number] [facility] EXAMINATION: XR LUMBAR SPINE 2-3 VIEWS (STANDARD) [...] gas pattern is nonobstructive. There is a tytpiusg-gs-csblc amount of stool burden. [facility] In [facility] Speechq - 03/05/2020 7:55 PM EDT EXAMINATION: [...] gas pattern is nonobstructive. There is a cwftnwst-dw-bvmfg amount of stool burden. IMPRESSION: No malalignment. No acute compression deformity. Xoueltzq-vx-hmnoz amount of stool burden. [employer] Workstation ID: [id number] [facility] CNOVon 10-28-2018 CNOV Office Visit (VASSMN ) SANDY GODINEZ ([id number]) 1995 F Date Time Provider Department 10/28/18 [...] REFERRING PROVIDER: Farrah Garcia MD [address] [facility] [id number] Consult requested for an opinion regarding the [...] TIME: 12:44 PM Referring Provider: FARRAH GARCIA [[id number]] Allergies As of Date: 10/28/2018 (No Known [...] by WARREN RODRIGUEZ MD on 10/29/18 Normal [facility] PROGRESSon 10-28-2018 Protein mass conc HNO ID: [id number] Author: Warren Rodriguez Service: ? Author Type: Physician Type: Progress Notes Filed: 10/29/2018 3:03 PM Note Text: VASCULAR SURGERY INITIAL CONSULT SERVICE DATE: 10/28/2018 SERVICE TIME: 12:44 PM PRIMARY CARE PHYSICIAN: Farrah Garcia MD REFERRING PROVIDER: Farrah Garcia MD [address] [facility] [id number] Consult requested for an opinion regarding the [...] needed unless new issues arise SIGNATURE: Warren Rodrigeuz MD PATIENT NAME: Sandy Godinez DATE: October 28, 2018 TIME: 12:44 PM Normal [facility] Vital Signs Date Time Vital Sign Value Performing Clinician Faci christyy 07-19-2023 09:31-0500 Body mass index (BMI) [Ratio] 26.79 kg/m2 [facility] 07-19-2023 09:31-0500 Body weight 73.03 kg [facility] 07-19-2023 09:31-0500 Diastolic blood pressure 72 mm[Hg] [facility] 07-19-2023 09:31-0500 Systolic blood pressure 118 mm[Hg] [facility] Encounters Encounter Date Encounter Type Care Provider Facility Start: 07-25-2023 Clinisync Result Encounter Jose Miguel Justen DO Work Phone: [facility] Unsolicited Start: 07-25-2023 Clinisync Result Encounter Jose Miguel Justen DO Work Phone: [facility] Unsolicited Start: 07-19-2023 End: 07-19-2023 ambulatory JOSE MIGUEL JUSTEN Not Available Start: 07-19-2023 End: 07-19-2023 Office outpatient visit 5 minutes [facility] Justen Nurse [facility] Comment on above: GA: [id number] Start: 07-02-2023 End: 07-02-2023 ambulatory JOSE MIGUEL JUSTEN Not Available Start: 05-02-2023 ambulatory Royer Layne acility:[facility] Start: 07-30-2022 End: 07-31-2022 ambulatory DUARTE VALDERRAMA [...] Facility:[facility] Start: 10-26-2021 End: 10-26-[address] LORENZANA MISC Facility:[facility] Start: 10-26-2021 End: 10-27-[address] LORENZANA MISC Facility:[facility] Start: 10-24-2021 End: 10-24-[address] LORENZANA MISC Facility:[facility] Start: 09-28-2021 End: 09-29-[address] JOSE MIGUEL CAMPUZANO Facility:[facility] Start: 09-16-2021 End: 09-16-2021 ambulatory ILIR JUAREZ Facility:[facility] Start: 06-21-2021 End: 09-19-2021 Recurring Jose Miguel CAMPUZANO [facility] Start: 03-05-2020 End: 03-06-2020 Patient encounter procedure [facility] Start: 03-05-2020 End: 03-05-2020 Subsequent hospital visit by physician [facility] Work Phone: [facility] Comment on above: Chronic low back sharon n, unspecified back pain laterality, unspecified whether sciatica present Procedures Date Procedure Procedure Detail Performing Clinician Start: 07-25-2023 ALL CBC WITH AUTO DIFF Jose Miguel Campuzano DO Work Phone: Start: 07-19-2023 End: 07-19-2023 Urnls dip stick/tablet [...] encounter procedure 08/19/2023 11:10 AM EST Routine [facility] [address] [place] [place] [id number] Jose Miguel Campuzano, DO [address] [place] [address] [facility] Start: 07-19-2023 End: 07-19-2024 ABO/Rh ABO/Rh Lab Routine Missed menses Expected: 07/19/2023 (Approximate), Expires: 07/19/2024 [facility] Comment on above: Expected: 07/19/2023 (Approximate), Expires: 07/19/2024 Start: 07-19-2023 End: 07-19-2024 Blood type and Indirect antibody screen panel - Blood Type and screen Lab Routine Missed menses Expected: 07/19/2023 (Approximate), Expires: 07/19/2024 [facility] Work Phone: Comment on above: Expected: 07/19/2023 (Approximate), Expires: 07/19/2024 Start: 07-19-2023 End: 07-19-2024 US Pelvis transvaginal US OB transvaginal Imaging Routine Missed menses Expected: 07/19/2023 (Approximate), Expires: 07/19/2024 [facility] Comment on above: Expected: 07/19/2023 (Approximate), Expires: 07/19/2024 Start: 02-16-2020 Influenza vaccinatio n given Sequential Influenza Vaccine (#1) [facility] Start: 2014 Hepatitis C antibody , confirmatory test Hepatitis C Screening [facility] Start: 08-31-2011 HIV screening HIV Screening [facility] Start: 08-31-2007 Vaccination for [place] papillomavirus HPV Vaccines (1 - 2-dose series) [facility] Start: 08-31-1999 History and physical examination, annual for health maintenance Wellness Visit [facility] Start: 1996 Screening for Chlamy tristan trachomatis Chlamydia Screening [facility] Start: 1996 Screening for malign ant neoplasm of cervix Pap Smear [facility] Start: 1996 Tetanus vaccination Tetanus: Every 1 0yrs [facility] Bacteria identified in Urine by Culture Urine culture Microbiology Routine Missed menses Ordered: 07/19/2023 [facility] Comment on above: Ordered: 07/19/2023 CBC W Auto Different ial panel - Blood CBC and differential Lab Routine Missed menses Ordered: 07/19/2023 [facility] Comment on above: Ordered: 07/19/2023 Hemoglobin A1c measurement Hemoglobin A1c Lab Routine Missed menses Ordered: 07/19/2023 [facility] Comment on above: Ordered: 07/19/2023 Hepatitis B virus knight rface Ag [Presence] in Serum or Plasma by Immunoassay Hepatitis B surface antigen Lab Routine Missed menses Ordered: 07/19/2023 [facility] Comment on above: Ordered: 07/19/2023 Hepatitis C virus Ab [Presence] in Serum or Plasma by Immunoassay Hepatitis C antibody Lab Routine Missed menses Ordered: 07/19/2023 [facility] Comment on above: Ordered: 07/19/2023 HIV-1/HIV-2 antigen/antibody combination immunoassay HIV-1 and HIV-2 antibodies Lab Routine Missed menses Ordered: 07/19/2023 [facility] Comment on above: Ordered: 07/19/2023 Reagin Ab [Presence] in Serum by RPR RPR Lab Routine Missed menses Ordered: 07/19/2023 [facility] Comment on above: Ordered: 07/19/2023 Rubella antibody, IgG Rubella an tibody, IgG Lab Routine Missed menses Ordered: 07/19/2023 [facility] Comment on above: Ordered: 07/19/2023 Payers Date Payer Category Payer Self-pay 2022 Medicaid [employer] [place] [id number] 2022-Present [address] [place] [address] [id number] 1995 Unknown [id number] 2.16.840.1.519782.3.579.2.903 1996 Unknown [id number] 2.16.840.1.769045.3.579.2.593 1996 Unknown [id number] 2.16.840.1.065247.3.579.2.593 1996 Unknown [id number] 2.16.840.1.608793.3.579.2.593 1996 Unknown [id number] 2.16.840.1.527232.3.579.2.593 1996 Unknown [id number] 2.16.840.1.388796.3.579.2.593 1996 Unknown [id number] 2.16.840.1.634338.3.579.2.593 1996 Unknown [id number] 2.16.840.1.758714.3.579.2.593 1996 Unknown [id number] 2.16.840.1.020097.3.579.2.593 1996 Unknown [id number] 2.16.840.1.737713.3.579.2.593 1996 Unknown [id number] 2.16.840.1.483233.3.579.2.593 1996 Unknown [id number] 2.16.840.1.717718.3.579.2.593 1996 Unknown [id number] 2.16.840.1.788463.3.579.2.593 1996 Unknown [id number] 2.16.840.1.057960.3.579.2.593 1996 Unknown [id number] 2.16.840.1.306887.3.579.2.593 1996 Unknown [id number] 2.16.840.1.048682.3.579.2.593 1996 Unknown [id number] 2.16.840.1.974343.3.579.2.593 1996 Unknown [id number] 2.16.840.1.724945.3.579.2.593 1996 Unknown [id number] 2.16.840.1.297552.3.579.2.593 1996 Unknown [id number] 2.16.840.1.200843.3.579.2.593 1996 Unknown [id number] 2.16.840.1.985786.3.579.2.593 1996 Unknown [id number] 2.16.840.1.452822.3.579.2.593 1996 Unknown [id number] 2.16.840.1.541324.3.579.2.1259 1996 Unknown [id number] 2.16.840.1.906215.3.579.2.1259 1959 Unknown [id number] 1959 Unknown [id number] Unknown COMMERCIAL COMME RCIAL MISCELLANEOUS [id number] Effective for all dates [id number].7.3. [id number] Unknown [id number] Unknown [id number] 2.16.840.1.428138.3.579.2.531 Social History Date Type Detail Facility Tobacco smoking stat [facility] Unknown if ever smoked [facility] Sex Assigned At Not on file [facility] Start: 12-07-2022 Sex Assigned At Female Nixon Dory Gutierrez [facility] Start: 12-07-2022 Tobacco smoking status NHIS Never smoked tobacco [facility] Start: 07-19-2023 Alcohol intake Current drinker of alcohol (finding) [facility] Start: 12-07-2022 History of Social function [facility] Start: 12-07-2022 Alcohol Comment 1-2 drinks less than monthly in the past year [facility] Start: 05-31-2023 [facility] Start: 1995 Sex Assigned At Female [facility] Start: 11-29-2022 Gender identity Identifies as female gender (finding) [facility] Healthcare Start: 11-29-2022 Sexual orientation Heterosexual (finding) [facility] History of Present illness Narrative 07-19-2023 Cori Daniel MA - 07/19/2023 9:00 AM EST Note Date [...] Procedure Laterality Date DILATION AND CURETTAGE 2018 OR TONSILLECTOMY & ADENOIDECTOMY AGE 13/> 2015 WISDOM [...] sent for nausea to pharmacy. Pt desires [place] [address] and understands to have it done at 10 weeks along w/her labs. Follow Up: Patient is to have labs drawn at directed and return to office for initial OB appointment with provider. Patient may call office as needed with any concerns or questions. Nurse Visit Completed by: Cori Daniel MA documented in this encounter [facility] Clinical Note 01-16-2022 Note Date & Type [...] by: Cecelia FOOTE Date: 2022-01-16 21:33 [facility] Clinical Note 01-16-2022 Note Date & [...] by: Cecelia FOOTE Date: 2022-01-16 21:33 [facility] Clinical Note 01-15-2022 Note Date & [...] authenticated by: IGOR DIAZ Date: 2022-01-15 10:10 [facility] Evaluation + Plan note Note Date & Type Note Facility Evaluation + Plan note No data available for this section [facility] Evaluation note Note Date & Type Note Facility Evaluation note Diagnosis Missed menses Nausea Nausea alone documented in this encounter [facility] Discharge instructions Note Date & Type Note Facility Hospital Discharge instructions No data available for this section [facility] Summary Purpose Family History No Family History Records FoundNo Family History Records FoundNo Family History Records FoundNo Family History Records FoundNo Family History Records FoundNo Family History Records Found Advance Directives Documents on File Type Date Recorded 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 Advance Directives and Livin g Will 03/05/2020 2:18 PM Assessments Diagnosis Chronic low back pain, unspecified back pain laterality, unspecified whether sciatica present Additional Source Comments INFORMATION SOURCE (unrecogn ized section and content) DATE CREATED AUTHOR 11/08/2018 [facility] DATE CREATED AUTHOR AUTHOR'S ORGANIZ ATION 03/21/2020 [facility] DATE CREATED AUTHOR AUTHOR'S ORGANIZ ATION 08/04/2022 [facility] DATE CREATED AUTHOR AUTHOR'S ORGANIZ ATION 09/06/2022 [facility] DATE CREATED AUTHOR AUTHOR'S ORGANIZ ATION 07/13/2023 [facility] DATE CREATED AUTHOR AUTHOR'S ORGANIZ ATION 07/20/2023 [facility] EPIC Reason for Visit (unrecogniz [...] BE BASED ON THE PRIMARY CLINICAL RECORDS. [facility] [email or web address] [facility]. provides no warranty or guarantee of the accuracy or completeness of information in this document.
== END 2023-08-06 10:49 | disposition home or self-care (01) ==
LOC: US 10:48
PROVIDERS: PCP Nurse Practitioner Family; Visit Provider Obstetrics & Gynecology
DX: O41.8X10 Other specified disorders of amniotic fluid and membranes, first trimester, not applicable or unspecified (principal); O46.8X1 Other antepartum hemorrhage, first trimester; Z3A.11 11 weeks gestation of pregnancy
CPT/HCPCS: 76817

== ENCOUNTER 2023-08-20 14:20 | Outpatient (OUT) | payer OTHER, SELFPAY ==
--- NOTE | 2023-08-20 14:23 | US_ITS ---
[address] [address] Patient Name: SANDY GODINEZ MRN: [id number] date: 1995 Sex: F Assigned Patient Location: [facility] Current Patient Location: [facility] Accession/Order Number: [id number] Exam Date: 08/20/2023 14:24 Report Date: 08/20/2023 15:48 At the request of: JOSE MIGUEL BOATENG Procedure: US OB cervical length EXAMINATION: US OB cervical length HISTORY: VAGINAL DISCHARGE, HEMATURIA COMPARISON: No relevant comparison available. FINDINGS: The cervix is closed measuring 3.8 cm in length Heart rate: 150 beats minute Gestational age: 30 weeks 4 days US/US OB cervical length IMPRESSION: Closed cervix measuring 3.8 cm Electronically authenticated by: KIRK OATES Date: 08/20/2023 15:48
== END 2023-08-20 14:21 | disposition home or self-care (01) ==
LOC: NOMS 14:20
PROVIDERS: PCP Nurse Practitioner Family; Visit Provider Obstetrics & Gynecology
DX: Z36.86 Encounter for antenatal screening for cervical length (principal); Z3A.30 30 weeks gestation of pregnancy
CPT/HCPCS: 76817

== ENCOUNTER 2023-09-17 20:21 | Outpatient (REF) | payer OTHER, SELFPAY ==
--- OUTSIDE RECORDS SUMMARY | 2023-09-17 20:27 | XMS_ITS | CCD ---
Author Organization [facility] Care Team Providers Care Lead Electrical Engineer Name Role Phone Farrah Garcia Primary Care Provider VIBHA JOHNSON Attending Unavailable VIBHA JOHNSON Referring Unavailable FARRAH GARCIA Primary Care Unavailable Kelli Oliver Primary Care Physician MISC, DR LORENZANA Primary Care Unavailable MANOJ CUNNINGHAM Consulting Unavailable MANOJ CUNNINGHAM Admitting Unavailable MANOJ CUNNINGHAM Attending Unavailable ILIR JUAREZ Consulting Unavailable JUSTEN, DR GILLESPIE Attending Unavailable JUSTEN, DR GILLESPIE Admitting Unavailable KARASIK, DR MIMS Consulting Unavailable REQUEST, NONE LISTED Primary Care Unavaila ble JUSTEN, DR GILLESPIE Consulting Unavailable JUSTEN, DR GILLESPIE Procedure Practitioner Unavailab KRISTINA Keller Attending Unavailable KRISTINA VELEZ Consulting Unavailable KRISTINA VELEZ Admitting Unavailable MISC, DR LORENZANA Primary Care Unavailable DAMIAN, DR LYLA Sanchez Consulting Unavailable DAMIAN, DR LYLA Sanchez Admitting Unavailable DAMIAN, DR LYLA Sanchez Attending Unavailable REQUEST, NONE LISTED Primary Care Unavaila Gagandeep Ferreira Consulting Unavailable JUSTEN, DR GILLESPIE Consulting Unavailable MISC, DR LORENZANA Primary Care [...] GARLAND Consulting Unavailable IGOR DIAZ Consulting Unavailable TROTTI, GIROLAMO Consulting Unavailable JUSTEN, DR GILLESPIE Consulting Unavailable [...] Primary Care Unavailable ILIR JUAREZ Consulting Unavailable ILIR JUAREZ Admitting Unavailable ILIR JUAREZ Attending Unavailable FARRAH GARCIA Primary Care Unavailable LAVELLE, DUARTE Consulting Unavailable LAVELLE, DUARTE Primary Care Unavailable LAVELLE, DUARTE Admitting Unavailable LAVELLE, DUARTE Attending Unavailable JUSTEN, DR GILLESPIE Consulting Unavailable JUSTEN, DR GILLESPIE Admitting Unavailable JUSTEN, DR GILLESPIE Attending Unavailable REQUEST, DR NONE LISTED Primary Care Unavaila ble ZIEBJESS, DR DAVID Sanchez Consulting Unavailable JUSTEN, DR GILLESPIE Attending Unavailable WEST, DR KIRK Johnson Consulting Unavailable JUSTEN, DR GILLESPIE Admitting Unavailable MISDR HARRIETT Griffin Primary Care Unavailable DR JOSE MIGUEL CAMPUZANO Consulting Unavailable Royer Simmons Attending Unavailab Royer Watts Admitting [facility] Unavailable Unavailable Primary Care Provider UnavailJOSE MIGUEL Barreto Attending Unavailable JOSE MIGUEL CAMPUZANO Attending Unavailable Allergies Allergy Classification Reported Allergen(s) Allergy Type Date of Onset Reaction(s) Facility (1 source) Desonide Drug Allergy 9 [facility] Repository (2 sources) Wound Dressing Adhesive [...] Virus Nucleoside Analog DNA Polymerase Inhibitor Start: 04-01-2023 take 1 tablet by mouth in the [...] 02-15-2022 Episodic Other aftercare (1 source) Other fdc (current) 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; 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: [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] Onset: 02-05-2022 Episodic Other [...] WITH AUTO DIFFon BASOPHILS ABSOLUTE AUTO 0.1 [facility] Basophils/100 WBC (Bld) 0.7 % 0.2 - 2.0 % [facility] Eosinophils/100 WBC (Bld) 2.6 % 0.9 - 7.0 % [facility] Erythrocyte distribution width (RBC) [Ratio] 13.4 % 11.0 - 15.0 % [facility] Hematocrit (Bld) [Volume fraction] 39.0 % 36.0 - 48.0 % [facility] Hemoglobin (Bld) [Mass/Vol] 12.8 g/dL 12.0 - 16.0 g/dL [facility] IMMATURE GRANULOCYTES ABS AUTO 0.01 [facility] Immature granulocytes/100 WBC (Bld) 0.1 % 0.0 - 0.5 % [facility] LYMPHOCYTES ABSOLUTE AUTO 2.2 [facility] Lymphocytes/100 WBC (Bld) 26.1 % 20.5 - 60.0 % [facility] MCH (RBC) [Entitic mass] 28.6 pg 26.7 - 34.0 pg [facility] MCHC (RBC) [Mass/Vol] 32.8 g/dL 29.9 - 35.2 g/dL [facility] MCV (RBC) [Entitic vol] 87.2 fL 81.0 - 99.0 fL [facility] MONOCYTES ABSOLUTE AUTO 0.5 [facility] Monocytes/100 WBC (Bld) 5.7 % 1.7 - 12.0 % [facility] NEUTROPHILS ABSOLUTE AUTO 5.5 [facility] Neutrophils/100 WBC (Bld) 64.8 % 43.0 - 75.0 % [facility] Platelet mean volume (Bld) [Entitic vol] 10.1 fL 9.5 - 13.5 [facility]L [facility] PLT 340 [facility] RBC 4.47 [facility] WBC 8.4 [facility] HCG ( test) Ql (U)o n 07-19-2023 Interpretation and review of laboratory results Abnormal [facility] Preg Test, Ur Positive [facility] Urinalysis macro (dipstick) panel (U)on 07-19-2023 Bilirubin, UA Negative Negative - 4(70) +++ mg/dL [facility] Blood, UA Positive Negative - 50 Anselmo/mcL [facility] Comment on above: moderate Clarity, UA Clear [facility] Color, UA [place] [facility] Glucose, UA Negative Negative - 2000(110) ++++ mg/dL [facility] Interpretation and review of laboratory results Abnormal [facility] Ketones, UA Positive Negative - 160(16) ++++ mg/dL [facility] Comment on above: trace Leukocytes, UA Positive Negative - 500+++ Monik/mcL [facility] Comment on above: small Nitrite, UA Negative Negative - Positive [facility] pH, UA 6.0 5 - 9 [facility] Protein, UA Positive Negative - 2000(20) ++++ mg/dL [facility] Comment on above: 30 Spec Grav, UA 1.030 1 - 1.03 [facility] Urobilinogen, UA 1.0 0.2 - 12 mg/dL [facility] In office Testingon 09-07-19 23 In office Testing [id number] 0 [id number] 1.00CD:127 Normal [facility] CBC AUTO DIFFon 07-30-2022 BASO # 0.1 103/ul Normal 0.0-0.1 [facility] Comment on above: Performed By: #### U RCX #### [facility] [address] [place] [address] Dr. Caitlin Martinez Basophils/100 WBC (Bld) 1.1 % Normal 0.2-2.0 [facility] Comment on above: Performed By: #### U RCX #### [facility] [address] [place] [address] Dr. Caitlin Martinez EO # 0.3 103/ul Normal 0.0-0.7 [facility] Comment on above: Performed By: #### U RCX #### [facility] [address] [place] [address] Dr. Caitlin Martinez Eosinophils/100 WBC (Bld) 4.7 % Normal 0.9-7.0 [facility] Comment on above: Performed By: #### U RCX #### [facility] [address] [place] [address] Dr. Caitlin Martinez Erythrocyte distribution width (RBC) [Ratio] 14.7 % Normal 11.0-15.0 [facility] Comment on above: Performed By: #### U RCX #### [facility] [address] [place] [address] Dr. Caitlin Martinez Hematocrit (Bld) [Volume fraction] 39.3 % Normal 36.0-48.0 [facility] Comment on above: Performed By: #### U RCX #### [facility] [address] [place] [address] Dr. Caitlin Martinez Hemoglobin (Bld) [Mass/Vol] 12.7 g/dL Normal 12.0-16.0 [facility] Comment on above: Performed By: #### U RCX #### [facility] [address] [place] [address] Dr. Caitlin Martinez IG # 0.02 10e3/ul Normal 0.00-0.03 [facility] Comment on above: Performed By: #### U RCX #### [facility] [address] [place] [address] Dr. Caitlin Martinez IG % 0.3 % Normal 0.0-0.5 [facility] Comment on above: Performed By: #### U RCX #### [facility] [address] [place] [address] Dr. Caitlin Martinez LYMPH # 2.5 103/ul Normal 1.2-3.8 [facility] Comment on above: Performed By: #### U RCX #### [facility] [address] [place] [address] Dr. Caitlin Martinez Lymphocytes/100 WBC (Bld) 34.5 % Normal 20.5-60.0 [facility] Comment on above: Performed By: #### U RCX #### [facility] [address] [place] [address] Dr. Caitlin Martinez MANUAL DIFF REQ NO Normal [facility] Comment on above: Performed By: #### U RCX #### [facility] [address] [place] [address] Dr. Caitlin Martinez MCH (RBC) [Entitic mass] 27.3 pg Normal 26.7-34.0 [facility] Comment on above: Performed By: #### U RCX #### [facility] [address] [place] [address] Dr. Caitlin Martinez MCHC (RBC) [Mass/Vol] 32.3 g/dL Normal 29.9-35.2 [facility] Comment on above: Performed By: #### U RCX #### [facility] [address] [address] [address] Caitlin Martinez MCV (RBC) [Entitic vol] 84.5 fL Normal 81.0-99.0 [facility] Comment on above: Performed By: #### U RCX #### [facility] [address] [place] [address] Dr. Caitlin Martinez MONO # 0.5 103/ul Normal 0.3-0.8 [facility] Comment on above: Performed By: #### U RCX #### [facility] [address] [place] [address] Dr. Caitlin Martinez Monocytes/100 WBC (Bld) 7.3 % Normal 1.7-12.0 [facility] Comment on above: Performed By: #### U RCX #### [facility] [address] [place] [address] Dr. Caitlin Martinez NEUT # 3.8 103/ul Normal 1.4-6.5 [facility] Comment on above: Performed By: #### U RCX #### [facility] [address] [place] [address] Dr. Caitlin Martinez Neutrophils/100 WBC (Bld) 52.1 % Normal 43.0-75.0 [facility] Comment on above: Performed By: #### U RCX #### [facility] [address] [place] [address] Dr. Caitlin Martinez Platelet mean volume (Bld) [Entitic vol] 9.0 fL Critically low 9.5-13.5 [facility] Comment on above: Performed By: #### U RCX #### [facility] [address] [place] [address] Dr. Caitlin Martinez PLT 368 103/ul Normal 150-450 [facility] Comment on above: Performed By: #### U RCX #### [facility] [address] [place] [address] Dr. Caitlin Martinez RBC 4.65 106/ul Normal 4.20-5.40 [facility] Comment on above: Performed By: #### U RCX #### [facility] [address] [address] [address] Caitlin Martinez WBC 7.2 103/ul Normal 4.0-11.0 [facility] Comment on above: Performed By: #### U RCX #### [facility] [address] [place] [address] Dr. Caitlin Martinez IRONon 07-30-2022 Iron [Mass/Vol] 43.0 ug/dL Critically low 50.0-170.0 [facility] Comment on above: Performed By: #### U RCX #### [facility] [address] [place] [address] Dr. Caitlin Martinez PAP ACOG PANEL 2: 21 to 29on 07-30-2022 . . Normal [facility] Comment on above: Performed By: #### U RCX #### [facility] [address] [place] [address] Dr. Caitlin Martinez Age Gdln ACOG Testing - [facility] Comment on above: Performed By: #### U RCX #### [facility] [address] [place] [address] Dr. Caitlin Martinez DIAGNOSIS: Comment Normal [facility] Comment on above: Result Comment: NEGA TIVE FOR INTRAEPITHELIAL LESION OR MALIGNANCY. Performed By: #### U RCX #### [facility] [address] [place] [address] Dr. Caitlin Martinez Methodology: Comment Normal [facility] Comment on above: Result Comment: This liquid based ThinPrep(R) pap test was screened with the use of an image guided system. Performed By: #### U RCX #### [facility] [address] [place] [address] Dr. Caitlin Martinez Note: Comment Normal [facility] Comment on above: Result Comment: The Pap smear is a screening test designed to aid in the detection of premalignant and malignant conditions of the uterine cervix. It is not a diagnostic procedure and should not be used as the sole means of detecting cervical cancer. Both false-positive and false-negative reports do occur. . Performed By: #### U RCX #### [facility] [address] [place] [address] Dr. Caitlin Martinez Performed by: Comment Normal [facility] Comment on above: Result Comment: Bhavna Cormier, Cloth Washer Back Tender (ASCP) Performed By: #### U RCX #### [facility] [address] [place] [address] Dr. Caitlin Martinez Reflex Criteria: Comment Normal [facility] Comment on above: Result Comment: The HPV DNA reflex criteria were not met with this specimen result therefore, no HPV testing was performed. . Performed By: #### U RCX #### [facility] [address] [place] [address] Dr. Caitlin Martinez Specimen adequacy: Comment Normal [facility] Comment on above: Result Comment: Sati sfactory for evaluation. Endocervical and/or squamous metaplastic cells (endocervical component) are present. Performed By: #### U RCX #### [facility] [address] [place] [address] Dr. Caitlin Martinez INSULINon 04-19-2022 Insulin 9.1 uIU/mL Normal 2.6-24.9 [facility] Comment on above: Performed By: #### I HORACIO #### [facility] [address] [place] [address] Dr. Caitlin Martinez CBC AUTO DIFFon 04-18-2022 BASO # 0.1 103/ul Normal 0.0-0.1 [facility] Comment on above: Performed By: #### U RCX #### [facility] [address] [place] [address] Dr. Caitlin Martinez Basophils/100 WBC (Bld) 1.0 % Normal 0.2-2.0 [facility] Comment on above: Performed By: #### U RCX #### [facility] [address] [place] [address] Dr. Caitlin Martinez EO # 0.3 103/ul Normal 0.0-0.7 [facility] Comment on above: Performed By: #### U RCX #### [facility] [address] [address] [address] Caitlin Martinez Eosinophils/100 WBC (Bld) 4.1 % Normal 0.9-7.0 [facility] Comment on above: Performed By: #### U RCX #### [facility] [address] [address] [address] Caitlin Martinez Erythrocyte distribution width (RBC) [Ratio] 16.0 % Critically high 11.0-15.0 [facility] Comment on above: Performed By: #### U RCX #### [facility] [address] [place] [address] Dr. Caitlin Martinez Hematocrit (Bld) [Volume fraction] 35.7 % Critically low 36.0-48.0 [facility] Comment on above: Performed By: #### U RCX #### [facility] [address] [place] [address] Dr. Caitlin Martinez Hemoglobin (Bld) [Mass/Vol] 10.9 g/dL Critically low 12.0-16.0 [facility] Comment on above: Performed By: #### U RCX #### [facility] [address] [place] [address] Dr. Caitlin Martinez IG # 0.07 10e3/ul Critically high 0.00-0.03 [facility] Comment on above: Performed By: #### U RCX #### [facility] [address] [place] [address] Dr. Caitlin Martinez IG % 1.0 % Critically high 0.0-0.5 [facility] Comment on above: Performed By: #### U RCX #### [facility] [address] [place] [address] Dr. Caitlin Martinez LYMPH # 2.3 103/ul Normal 1.2-3.8 [facility] Comment on above: Performed By: #### U RCX #### [facility] [address] [place] [address] Dr. Caitlin Martinez Lymphocytes/100 WBC (Bld) 31.4 % Normal 20.5-60.0 [facility] Comment on above: Performed By: #### U RCX #### [facility] [address] [place] [address] Dr. Caitlin Martinez MANUAL DIFF REQ NO Normal [facility] Comment on above: Performed By: #### U RCX #### [facility] [address] [place] [address] Dr. Caitlin Martinez MCH (RBC) [Entitic mass] 24.8 pg Critically low 26.7-34.0 [facility] Comment on above: Performed By: #### U RCX #### [facility] [address] [place] [address] Dr. Caitlin Martinez MCHC (RBC) [Mass/Vol] 30.5 g/dL Normal 29.9-35.2 [facility] Comment on above: Performed By: #### U RCX #### [facility] [address] [place] [address] Dr. Caitlin Martinez MCV (RBC) [Entitic vol] 81.1 fL Normal 81.0-99.0 [facility] Comment on above: Performed By: #### U RCX #### [facility] [address] [place] [address] Dr. Caitlin Martinez MONO # 0.5 103/ul Normal 0.3-0.8 [facility] Comment on above: Performed By: #### U RCX #### [facility] [address] [place] [address] Dr. Caitlin Martinez Monocytes/100 WBC (Bld) 6.6 % Normal 1.7-12.0 [facility] Comment on above: Performed By: #### U RCX #### [facility] [address] [place] [address] Dr. Caitlin Martinez NEUT # 4.1 103/ul Normal 1.4-6.5 [facility] Comment on above: Performed By: #### U RCX #### [facility] [address] [place] [address] Dr. Caitlin Martinez Neutrophils/100 WBC (Bld) 55.9 % Normal 43.0-75.0 [facility] Comment on above: Performed By: #### U RCX #### [facility] [address] [address] [address] Caitlin Martinez Platelet mean volume (Bld) [Entitic vol] 9.4 fL Critically low 9.5-13.5 [facility] Comment on above: Performed By: #### U RCX #### [facility] [address] [address] [address] Caitlin Martinez PLT 369 103/ul Normal 150-450 [facility] Comment on above: Performed By: #### U RCX #### [facility] [address] [address] [address] Caitlin Martinez RBC 4.40 106/ul Normal 4.20-5.40 [facility] Comment on above: Performed By: #### U RCX #### [facility] [address] [address] [address] Caitlin Martinez WBC 7.3 103/ul Normal 4.0-11.0 [facility] Comment on above: Performed By: #### U RCX #### [facility] [address] [address] [address] Caitlin Martinez FREE THYROXINE INDEX T7on FTI 2.20 Normal 1.30-4.50 [facility] Comment on above: Performed By: #### I HORACIO #### [facility] [address] [place] [address] Dr. Caitlin Martinez T3U 29.0 % Critically low 30.0-39.0 [facility] Comment on above: Performed By: #### I HORACIO #### [facility] [address] [address] [address] Caitlin Martinez T4 [Mass/Vol] 7.60 ug/dL Normal 4.80-13.90 [facility] Comment on above: Performed By: #### I HORACIO #### [facility] [address] [place] [address] Dr. Caitlin Martinez GLYCOHEMOGLOBIN A1Con 2021 ADA RECOMMENDATION SEE BELOW Normal [facility] Comment on above: Result Comment: ADA RECOMMENDED LIMIT 4.0 - 6.0 ADA THERAPEUTIC TARGET < 7.0 ACTION SUGGESTED > 7.0 Performed By: #### U RCX #### [facility] [address] [place] [address] Dr. Caitlin Martinez Glucose [Mass/Vol] 97 mg/dL Normal [facility] Comment on above: Performed By: #### U RCX #### [facility] [address] [place] [address] Dr. Caitlin Martinez HbA1c (Bld) [Mass fraction] 5.0 % Normal 4.5-6.2 [facility] Comment on above: Performed By: #### U RCX #### [facility] [address] [place] [address] Dr. Caitlin Martinez IRONon 04-18-2022 Iron [Mass/Vol] 35.0 ug/dL Critically low 50.0-170.0 [facility] Comment on above: Performed By: #### I HORACIO #### [facility] [address] [place] [address] Dr. Caitlin Martinez LIPID PROFILEon 04-18-2022 CHOL-HDL RATIO NORM SEE BELOW Normal [facility] Comment on above: Result Comment: 3.3 - 4.4 LOW RISK 4.4 - 7.1 AVERAGE RISK 7.1 - 11.0 MODERATE RISK >11.0 HIGH RISK Performed By: #### I HORACIO #### [facility] [address] [place] [address] Dr. Caitlin Martinez Cholesterol [Mass/Vol] 221 mg/dL Critically high <=200 [facility] Comment on above: Performed By: #### I HORACIO #### [facility] [address] [place] [address] Dr. Caitlin Martinez Cholesterol in HDL [Mass/Vol] 67 mg/dL Critically high 40-60 [facility] Comment on above: Performed By: #### I HORACIO #### [facility] [address] [place] [address] Dr. Caitlin Martinez Cholesterol in LDL [Mass/Vol] 142.4 mg/dL Normal [facility] Comment on above: Performed By: #### I HORACIO #### [facility] [address] [address] [address] Caitlin Martinez Cholesterol.total/Cho lesterol in HDL [Mass ratio] 3.3 {ratio} Normal [facility] Comment on above: Performed By: #### I HORACIO #### [facility] [address] [address] [address] Caitlin Martinez HDL NORMAL > or = 60 mg/dl - LO W CARDIOVASCULAR RISK <40 mg/dl - HIGH CARDIOVASCULAR RISK Normal [facility] Comment on above: Performed By: #### I HORACIO #### [facility] [address] [address] [address] Caitlin Martinez LDL CALC NORMAL SEE BELOW Normal [facility] Comment on above: Result Comment: <100 mg/dl OPTIMAL 100 - 129 mg/dl NEAR OR ABOVE OPTIMAL 130 - 159 mg/dl BORDERLINE HIGH 160 - 189 mg/dl HIGH >190 mg/dl VERY HIGH Performed By: #### I HROACIO #### [facility] [address] [place] [address] Dr. Caitlin Martinez Triglyceride [Mass/Vol] 58 mg/dL Normal <=150 [facility] Comment on above: Performed By: #### I HORACIO #### [facility] [address] [address] [address] Caitlin Martinez VLDL CALC 11.6 mg/dL Normal [facility] Comment on above: Performed By: #### I HORACIO #### [facility] [address] [place] [address] Dr. Caitlin Martinez PROF 14(COMP METB)on 022 Albumin [Mass/Vol] 3.8 g/dL Normal 3.4-5.0 [facility] Comment on above: Performed By: #### I HORACIO #### [facility] [address] [place] [address] Dr. Caitlin Martinez Albumin/Globulin [Mass ratio] 1.1 {ratio} Normal [facility] Comment on above: Performed By: #### I HORACIO #### [facility] [address] [place] [address] Dr. Caitlin Martinez ALP [Catalytic activity/Vol] 132 U/L Critically high 46-116 [facility] Comment on above: Performed By: #### I HORACIO #### [facility] [address] [place] [address] Dr. Caitlin Martinez ALT [Catalytic activity/Vol] 55 U/L Normal 14-59 [facility] Comment on above: Performed By: #### I HORACIO #### [facility] [address] [address] [address] Caitlin Martinez Anion gap [Moles/Vol] 12.6 mmol/L Normal [facility] Comment on above: Performed By: #### I HORACIO #### [facility] [address] [place] [address] Dr. Caitlin Martinez AST [Catalytic activity/Vol] 27 U/L Normal 15-37 [facility] Comment on above: Performed By: #### I HORACIO #### [facility] [address] [place] [address] Dr. Caitlin Martinez Bilirubin [Mass/Vol] 0.6 mg/dL Normal 0.2-1.0 [facility] Comment on above: Performed By: #### I HORACIO #### [facility] [address] [place] [address] Dr. Caitlin Martinez Calcium [Mass/Vol] 9.1 mg/dL Normal 8.5-10.1 [facility] Comment on above: Performed By: #### I HORACIO #### [facility] [address] [place] [address] Dr. Caitlin Martinez Chloride [Moles/Vol] 106 mmol/L Normal 98-107 [facility] Comment on above: Performed By: #### I HORACIO #### [facility] [address] [place] [address] Dr. Caitlin Martinez CO2 [Moles/Vol] 26.5 mmol/L Normal 21.0-32.0 [facility] Comment on above: Performed By: #### I HORACIO #### [facility] [address] [place] [address] Dr. Caitlin Martinez Creatinine [Mass/Vol] 0.63 mg/dL Normal 0.55-1.02 [facility] Comment on above: Performed By: #### I HORACIO #### [facility] [address] [address] [address] Caitlin Martinez EGFR-AF MACANESE >60 Normal >=60 [facility] Comment on above: Performed By: #### I HORACIO #### [facility] [address] [address] [address] Caitlin Martinez EGFR-NON AF MACANESE >60 Normal >=60 [facility] Comment on above: Performed By: #### I HORACIO #### [facility] [address] [address] [address] Caitlin Martinez Globulin (S) [Mass/Vol] 3.6 g/dL Normal [facility] Comment on above: Performed By: #### I HORACIO #### [facility] [address] [place] [address] Dr. Caitlin Martinez Glucose [Mass/Vol] 98 mg/dL Normal 74-106 [facility] Comment on above: Performed By: #### I HORACIO #### [facility] [address] [address] [address] Caitlin Martinez Potassium [Moles/Vol] 4.1 mmol/L Normal 3.5-5.1 [facility] Comment on above: Performed By: #### I HORACIO #### [facility] [address] [place] [address] Dr. Caitlin Martinez Protein [Mass/Vol] 7.4 g/dL Normal 6.4-8.2 [facility] Comment on above: Performed By: #### I HORACIO #### [facility] [address] [address] [address] Caitlin Martinez Sodium [Moles/Vol] 141 mmol/L Normal 136-145 [facility] Comment on above: Performed By: #### I HORACIO #### [facility] [address] [address] [address] Caitlin Martinez Urea nitrogen [Mass/Vol] 9.0 mg/dL Normal 7.0-18.0 [facility] Comment on above: Performed By: #### I HORACIO #### [facility] [address] [address] [address] Caitlin Martinez Urea nitrogen/Creatinine [Mass ratio] 14.3 mg/mg Normal [facility] Comment on above: Performed By: #### I HORACIO #### [facility] [address] [address] [address] Caitlin Martinez TSHon 04-18-2022 TSH 1.349 uIU/mL Normal 0.358-3.740 [facility] Comment on above: Performed By: #### I HORACIO #### [facility] [address] [address] [address] Caitlin Martinez ANTIBODY ID PANELon 02-15-20 22 ANTIBODY ID PANEL Antibody ID Anti-D Blood Bank Notes most likely due to Rhogam given on 12/01/21 [facility] Comment on above: Performed By: #### D IRCMB, ABID #### [facility] [address] [address] [address] Caitlin Martinez CTA CHEST WO W [...] GAGANDEEP WHEELER Date: 2022-02-10 22:55 Normal [facility] CBC AUTO DIFFon 02-10-2022 BASO # 0.1 103/ul Normal 0.0-0.1 [facility] Comment on above: Performed By: #### C BC #### [facility] [address] [address] [address] Caitlin Martinez Basophils/100 WBC (Bld) 0.4 % Normal 0.2-2.0 [facility] Comment on above: Performed By: #### C BC #### [facility] [address] [address] [address] Caitlin Martinez EO # 0.5 103/ul Normal 0.0-0.7 [facility] Comment on above: Performed By: #### C BC #### [facility] [address] [address] [address] Caitlin Martinez Eosinophils/100 WBC (Bld) 4.2 % Normal 0.9-7.0 [facility] Comment on above: Performed By: #### C BC #### [facility] [address] [place] [address] Dr. Caitlin Martinez Erythrocyte distribution width (RBC) [Ratio] 14.7 % Normal 11.0-15.0 [facility] Comment on above: Performed By: #### C BC #### [facility] [address] [place] [address] Dr. Caitlin Martinez Hematocrit (Bld) [Volume fraction] 31.1 % Critically low 36.0-48.0 [facility] Comment on above: Performed By: #### C BC #### [facility] [address] [place] [address] Dr. Caitlin Martinez Hemoglobin (Bld) [Mass/Vol] 9.6 g/dL Critically low 12.0-16.0 [facility] Comment on above: Performed By: #### C BC #### [facility] [address] [address] [address] Caitlin Martinez IG # 0.28 10e3/ul Critically high 0.00-0.03 [facility] Comment on above: Performed By: #### C BC #### [facility] [address] [address] [address] Caitlin Martinez IG % 2.3 % Critically high 0.0-0.5 [facility] Comment on above: Performed By: #### C BC #### [facility] [address] [address] [address] Caitlin Martinez LYMPH # 3.3 103/ul Normal 1.2-3.8 [facility] Comment on above: Performed By: #### C BC #### [facility] [address] [address] [address] Caitlin Martinez Lymphocytes/100 WBC (Bld) 26.9 % Normal 20.5-60.0 [facility] Comment on above: Performed By: #### C BC #### [facility] [address] [place] [address] Dr. Caitlin Martinez MANUAL DIFF REQ NO Normal [facility] Comment on above: Performed By: #### C BC #### [facility] [address] [place] [address] Dr. Caitlin Martinez MCH (RBC) [Entitic mass] 26.2 pg Critically low 26.7-34.0 [facility] Comment on above: Performed By: #### C BC #### [facility] [address] [place] [address] Dr. Caitlin Martinez MCHC (RBC) [Mass/Vol] 30.9 g/dL Normal 29.9-35.2 [facility] Comment on above: Performed By: #### C BC #### [facility] [address] [place] [address] Dr. Caitlin Martinez MCV (RBC) [Entitic vol] 84.7 fL Normal 81.0-99.0 [facility] Comment on above: Performed By: #### C BC #### [facility] [address] [place] [address] Dr. Caitlin Martinez MONO # 1.1 103/ul Critically high 0.3-0.8 [facility] Comment on above: Performed By: #### C BC #### [facility] [address] [place] [address] Dr. Caitlin Martinez Monocytes/100 WBC (Bld) 8.7 % Normal 1.7-12.0 [facility] Comment on above: Performed By: #### C BC #### [facility] [address] [address] [address] Caitlin Martinez NEUT # 7.0 103/ul Critically high 1.4-6.5 [facility] Comment on above: Performed By: #### C BC #### [facility] [address] [address] [address] Caitlin Martinez Neutrophils/100 WBC (Bld) 57.5 % Normal 43.0-75.0 [facility] Comment on above: Performed By: #### C BC #### [facility] [address] [place] [address] Dr. Caitlin Martinez Platelet mean volume (Bld) [Entitic vol] 9.1 fL Critically low 9.5-13.5 [facility] Comment on above: Performed By: #### C BC #### [facility] [address] [place] [address] Dr. Caitlin Martinez PLT 437 103/ul Normal 150-450 [facility] Comment on above: Performed By: #### C BC #### [facility] [address] [place] [address] Dr. Caitlin Martinez RBC 3.67 106/ul Critically low 4.20-5.40 [facility] Comment on above: Performed By: #### C BC #### [facility] [address] [place] [address] Dr. Caitlin Martinez WBC 12.3 103/ul Critically high 4.0-11.0 [facility] Comment on above: Performed By: #### C BC #### [facility] [address] [place] [address] Dr. Caitlin Martinez [facility]16 SARS-CoV-2 (COVID-19) RNA JONATAN+probe Ql (Unsp spec) Not detected Normal NOT DETECTED [facility] Comment on above: Result Comment: When [...] for this test is supported by the Adjunct Instructor In [employer] of [employer] and Human Service's declaration that [...] used). Performed By: #### C VDTBH #### [facility] [address] [place] [address] Dr. Caitlin Martinez PROF 14(COMP METB)on 022 Albumin [Mass/Vol] 2.1 g/dL Critically low 3.4-5.0 [facility] Comment on above: Performed By: #### U RCX #### [facility] [address] [place] [address] Dr. Caitlin Martinez Albumin/Globulin [Mass ratio] 0.5 {ratio} Normal [facility] Comment on above: Performed By: #### U RCX #### [facility] [address] [place] [address] Dr. Caitlin Martinez ALP [Catalytic activity/Vol] 202 U/L Critically high 46-116 [facility] Comment on above: Performed By: #### U RCX #### [facility] [address] [place] [address] Dr. Caitlin Martinez ALT [Catalytic activity/Vol] 20 U/L Normal 14-59 [facility] Comment on above: Performed By: #### U RCX #### [facility] [address] [place] [address] Dr. Caitlin Martinez Anion gap [Moles/Vol] 11.6 mmol/L Normal [facility] Comment on above: Performed By: #### U RCX #### [facility] [address] [place] [address] Dr. Caitlin Martinez AST [Catalytic activity/Vol] 17 U/L Normal 15-37 [facility] Comment on above: Performed By: #### U RCX #### [facility] [address] [address] [address] Caitlin Martinez Bilirubin [Mass/Vol] 0.3 mg/dL Normal 0.2-1.0 [facility] Comment on above: Performed By: #### U RCX #### [facility] [address] [address] [address] Caitlin Martinez Calcium [Mass/Vol] 9.2 mg/dL Normal 8.5-10.1 [facility] Comment on above: Performed By: #### U RCX #### [facility] [address] [address] [address] Caitlin Martinez Chloride [Moles/Vol] 104 mmol/L Normal 98-107 [facility] Comment on above: Performed By: #### U RCX #### [facility] [address] [place] [address] Dr. Caitlin Martinez CO2 [Moles/Vol] 26.9 mmol/L Normal 21.0-32.0 [facility] Comment on above: Performed By: #### U RCX #### [facility] [address] [address] [address] Caitlin Martinez Creatinine [Mass/Vol] 0.56 mg/dL Normal 0.55-1.02 [facility] Comment on above: Performed By: #### U RCX #### [facility] [address] [address] [address] Caitlin Martinez EGFR-AF MACANESE >60 Normal >=60 [facility] Comment on above: Performed By: #### U RCX #### [facility] [address] [address] [address] Caitlin Martinez EGFR-NON AF MACANESE >60 Normal >=60 [facility] Comment on above: Performed By: #### U RCX #### [facility] [address] [place] [address] Dr. Caitlin Martinez Globulin (S) [Mass/Vol] 4.4 g/dL Normal [facility] Comment on above: Performed By: #### U RCX #### [facility] [address] [address] [address] Caitlin Martinez Glucose [Mass/Vol] 108 mg/dL Critically high 74-106 [facility] Comment on above: Performed By: #### U RCX #### [facility] [address] [address] [address] Caitlin Martinez Potassium [Moles/Vol] 3.5 mmol/L Normal 3.5-5.1 [facility] Comment on above: Performed By: #### U RCX #### [facility] [address] [address] [address] Caitlin Martinez Protein [Mass/Vol] 6.5 g/dL Normal 6.4-8.2 [facility] Comment on above: Performed By: #### U RCX #### [facility] [address] [address] [address] Caitlin Martinez Sodium [Moles/Vol] 139 mmol/L Normal 136-145 [facility] Comment on above: Performed By: #### U RCX #### [facility] [address] [address] [address] Caitlin Martinez Urea nitrogen [Mass/Vol] 7.0 mg/dL Normal 7.0-18.0 [facility] Comment on above: Performed By: #### U RCX #### [facility] [address] [address] [address] Caitlin Martinez Urea nitrogen/Creatinine [Mass ratio] 12.5 mg/mg Normal [facility] Comment on above: Performed By: #### U RCX #### [facility] [address] [address] [address] Caitlin Martinez TROPONIN, HIGH SENSITIVITYon 02-10-2022 HSTROP <4.0 Normal 4.0-51.3 [facility] Comment on above: Result Comment: CUT- OFF POINTS HAVE BEEN ESTABLISHED BASED ON THE FOURTH UNIVERSAL DEFINITIONS OF MYOCARDIAL INFARCTION. THE UPPER REFERENCE LIMIT (URL) OF TROPONIN, DEFINED THE 99TH PERCENTILE OF cTnI DISTRIBUTION IN A REFERENCE POPULATION, HAS BEEN CONFIRMED THE DECISION THRESHOLD FOR CT DIAGNOSIS. Performed By: #### U RCX #### [facility] [address] [address] [address] Caitlin Martinez CBC AUTO DIFFon 02-09-2022 BASO # 0.1 103/ul Normal 0.0-0.1 [facility] Comment on above: Performed By: #### U RCX #### [facility] [address] [place] [address] Dr. Caitlin Martinez Basophils/100 WBC (Bld) 0.6 % Normal 0.2-2.0 [facility] Comment on above: Performed By: #### U RCX #### [facility] [address] [place] [address] Dr. Caitlin Martinez EO # 0.3 103/ul Normal 0.0-0.7 [facility] Comment on above: Performed By: #### U RCX #### [facility] [address] [place] [address] Dr. Caitlin Martinez Eosinophils/100 WBC (Bld) 2.3 % Normal 0.9-7.0 [facility] Comment on above: Performed By: #### U RCX #### [facility] [address] [place] [address] Dr. Caitlin Martinez Erythrocyte distribution width (RBC) [Ratio] 14.6 % Normal 11.0-15.0 [facility] Comment on above: Performed By: #### U RCX #### [facility] [address] [place] [address] Dr. Caitlin Martinez Hematocrit (Bld) [Volume fraction] 28.8 % Critically low 36.0-48.0 [facility] Comment on above: Performed By: #### U RCX #### [facility] [address] [place] [address] Dr. Caitlin Martinez Hemoglobin (Bld) [Mass/Vol] 9.0 g/dL Critically low 12.0-16.0 [facility] Comment on above: Performed By: #### U RCX #### [facility] [address] [place] [address] Dr. Caitlin Martinez IG # 0.20 10e3/ul Critically high 0.00-0.03 [facility] Comment on above: Performed By: #### U RCX #### [facility] [address] [address] [address] Caitlin Martinez IG % 1.5 % Critically high 0.0-0.5 [facility] Comment on above: Performed By: #### U RCX #### [facility] [address] [address] [address] Caitlin Martinez LYMPH # 3.0 103/ul Normal 1.2-3.8 [facility] Comment on above: Performed By: #### U RCX #### [facility] [address] [address] [address] Caitlin Martinez Lymphocytes/100 WBC (Bld) 22.2 % Normal 20.5-60.0 [facility] Comment on above: Performed By: #### U RCX #### [facility] [address] [address] [address] Caitlin Martinez MANUAL DIFF REQ NO Normal [facility] Comment on above: Performed By: #### U RCX #### [facility] [address] [address] [address] Caitlin Martinez MCH (RBC) [Entitic mass] 26.2 pg Critically low 26.7-34.0 [facility] Comment on above: Performed By: #### U RCX #### [facility] [address] [address] [address] Caitlin Martinez MCHC (RBC) [Mass/Vol] 31.3 g/dL Normal 29.9-35.2 [facility] Comment on above: Performed By: #### U RCX #### [facility] [address] [address] [address] Caitlin Martinez MCV (RBC) [Entitic vol] 83.7 fL Normal 81.0-99.0 [facility] Comment on above: Performed By: #### U RCX #### [facility] [address] [address] [address] Caitlin Martinez MONO # 1.3 103/ul Critically high 0.3-0.8 [facility] Comment on above: Performed By: #### U RCX #### [facility] [address] [address] [address] Caitlin Martinez Monocytes/100 WBC (Bld) 9.8 % Normal 1.7-12.0 [facility] Comment on above: Performed By: #### U RCX #### [facility] [address] [address] [address] Caitlin Martinez NEUT # 8.5 103/ul Critically high 1.4-6.5 [facility] Comment on above: Performed By: #### U RCX #### [facility] [address] [address] [address] Caitlin Martinez Neutrophils/100 WBC (Bld) 63.6 % Normal 43.0-75.0 [facility] Comment on above: Performed By: #### U RCX #### [facility] [address] [address] [address] Caitlin Martinez Platelet mean volume (Bld) [Entitic vol] 9.1 fL Critically low 9.5-13.5 [facility] Comment on above: Performed By: #### U RCX #### [facility] [address] [address] [address] Caitlin Martinez PLT 355 103/ul Normal 150-450 [facility] Comment on above: Performed By: #### U RCX #### [facility] [address] [address] [address] Caitlin Martinez RBC 3.44 106/ul Critically low 4.20-5.40 [facility] Comment on above: Performed By: #### U RCX #### [facility] [address] [address] [address] Caitlin Martinez WBC 13.3 103/ul Critically high 4.0-11.0 [facility] Comment on above: Performed By: #### U RCX #### [facility] [address] [address] [address] Caitlin Martinez SCREENon 02-09-2022 SCREEN Negative Normal [facility] Comment on above: Performed By: #### F ETSCRN #### [facility] [address] [address] [address] Caitlin Martinez CBC AUTO DIFFon 02-08-2022 BASO # 0.1 103/ul Normal 0.0-0.1 [facility] Comment on above: Performed By: #### U RCX #### [facility] [address] [address] [address] Caitlin Martinez Basophils/100 WBC (Bld) 0.4 % Normal 0.2-2.0 [facility] Comment on above: Performed By: #### U RCX #### [facility] [address] [place] [address] Dr. Caitlin Martinez EO # 0.3 103/ul Normal 0.0-0.7 [facility] Comment on above: Performed By: #### U RCX #### [facility] [address] [place] [address] Dr. Caitlin Martinez Eosinophils/100 WBC (Bld) 2.6 % Normal 0.9-7.0 [facility] Comment on above: Performed By: #### U RCX #### [facility] [address] [place] [address] Dr. Caitlin Martinez Erythrocyte distribution width (RBC) [Ratio] 14.7 % Normal 11.0-15.0 [facility] Comment on above: Performed By: #### U RCX #### [facility] [address] [address] [address] Caitlin Martinez Hematocrit (Bld) [Volume fraction] 30.6 % Critically low 36.0-48.0 [facility] Comment on above: Performed By: #### U RCX #### [facility] [address] [address] [address] Caitlin Martinez Hemoglobin (Bld) [Mass/Vol] 9.7 g/dL Critically low 12.0-16.0 [facility] Comment on above: Performed By: #### U RCX #### [facility] [address] [address] [address] Caitlin Martinez IG # 0.15 10e3/ul Critically high 0.00-0.03 [facility] Comment on above: Performed By: #### U RCX #### [facility] [address] [address] [address] Caitlin Martinez IG % 1.3 % Critically high 0.0-0.5 [facility] Comment on above: Performed By: #### U RCX #### [facility] [address] [address] [address] Caitlin Martinez LYMPH # 2.8 103/ul Normal 1.2-3.8 [facility] Comment on above: Performed By: #### U RCX #### [facility] [address] [address] [address] Caitlin Martinez Lymphocytes/100 WBC (Bld) 24.8 % Normal 20.5-60.0 [facility] Comment on above: Performed By: #### U RCX #### [facility] [address] [place] [address] Dr. Caitlin Martinez MANUAL DIFF REQ NO Normal [facility] Comment on above: Performed By: #### U RCX #### [facility] [address] [address] [address] Caitlin Martinez MCH (RBC) [Entitic mass] 26.6 pg Critically low 26.7-34.0 [facility] Comment on above: Performed By: #### U RCX #### [facility] [address] [address] [address] Caitlin Martinez MCHC (RBC) [Mass/Vol] 31.7 g/dL Normal 29.9-35.2 [facility] Comment on above: Performed By: #### U RCX #### [facility] [address] [address] [address] Caitlin Martinez MCV (RBC) [Entitic vol] 83.8 fL Normal 81.0-99.0 [facility] Comment on above: Performed By: #### U RCX #### [facility] [address] [address] [address] Caitlin Martinez MONO # 1.0 103/ul Critically high 0.3-0.8 [facility] Comment on above: Performed By: #### U RCX #### [facility] [address] [address] [address] Caitlin Martinez Monocytes/100 WBC (Bld) 8.7 % Normal 1.7-12.0 [facility] Comment on above: Performed By: #### U RCX #### [facility] [address] [address] [address] Caitlin Martinez NEUT # 7.0 103/ul Critically high 1.4-6.5 [facility] Comment on above: Performed By: #### U RCX #### [facility] [address] [place] [address] Dr. Caitlin Martinez Neutrophils/100 WBC (Bld) 62.2 % Normal 43.0-75.0 [facility] Comment on above: Performed By: #### U RCX #### [facility] [address] [place] [address] Dr. Caitlin Martinez Platelet mean volume (Bld) [Entitic vol] 9.0 fL Critically low 9.5-13.5 [facility] Comment on above: Performed By: #### U RCX #### [facility] [address] [place] [address] Dr. Caitlin Martinez PLT 373 103/ul Normal 150-450 [facility] Comment on above: Performed By: #### U RCX #### [facility] [address] [place] [address] Dr. Caitlin Maritnez RBC 3.65 106/ul Critically low 4.20-5.40 [facility] Comment on above: Performed By: #### U RCX #### [facility] [address] [place] [address] Dr. Caitlin Martinez WBC 11.3 103/ul Critically high 4.0-11.0 [facility] Comment on above: Performed By: #### U RCX #### [facility] [address] [place] [address] Dr. Caitlin Martinez [facility]16 SARS-CoV-2 (COVID-19) RNA JONATAN+probe Ql (Unsp spec) Not detected Normal NOT DETECTED [facility] Comment on above: Result Comment: When [...] for this test is supported by the [place] of [employer] and Human Service's declaration that [...] used). Performed By: #### C BC #### [facility] [address] [place] [address] Dr. Caitlin Martinez DIRECT COOMBSon 02-08-2022 DIRECT EDWINA Negative Normal [facility] Comment on above: Performed By: #### D IRCMB, ABID #### [facility] [address] [place] [address] Dr. Caitlin Martinez DRUG SCREEN RAPID (URINE)on 02-08-2022 AMP Negative Normal NEGATIVE [facility] Comment on above: Performed By: #### C BC #### [facility] [address] [place] [address] Dr. Caitlin Martinez BAR Negative Normal NEGATIVE [facility] Comment on above: Performed By: #### C BC #### [facility] [address] [place] [address] Dr. Caitlin Martinez BUP Negative Normal NEGATIVE [facility] Comment on above: Performed By: #### C BC #### [facility] [address] [place] [address] Dr. Caitlin Martinez BZO Negative Normal NEGATIVE [facility] Comment on above: Performed By: #### C BC #### [facility] [address] [address] [address] Caitlin Martinez JEANNA Negative Normal NEGATIVE [facility] Comment on above: Performed By: #### C BC #### [facility] [address] [address] [address] Caitlin Martinez CUT-OFFS SEE BELOW Normal [facility] Comment on above: Result Comment: AMP (Amphetamine): 500ng/mL, BAR (Barbituates): 200 ng/mL, BZO (Benzodiazepines): 150 ng/mL, BUP (Buprenorphine): 10 ng/mL, JEANNA (Cocaine): 150 ng/mL, mAMP (Methamphetamine): 500 ng/mL, MTD (Methadone): 200 ng/mL, OPI (Opiates): 100 ng/mL, OXY (Oxycodone): 100 ng/mL, PCP (Phencyclidine): 25 ng/mL, PPX (Propoxyphene): 300 ng/mL, THC (Cannabinoids): 50 ng/mL, TCA (Trycyclic Antidepressants): 300 ng/mL Performed By: #### C BC #### [facility] [address] [place] [address] Dr. Caitlin Martinez DRUG CUT HEADER DRUG CLASS TEST SYSTEM CUT-OFF CONCENTRATIONS ARE FOLLOWS: Normal [facility] Comment on above: Performed By: #### C BC #### [facility] [address] [place] [address] Dr. Caitlin Martinez mAMP Negative Normal NEGATIVE [facility] Comment on above: Performed By: #### C BC #### [facility] [address] [address] [address] Caitlin Martinez MTD Negative Normal NEGATIVE [facility] Comment on above: Performed By: #### C BC #### [facility] [address] [address] [address] Caitlin Martinez OPI Negative Normal NEGATIVE [facility] Comment on above: Performed By: #### C BC #### [facility] [address] [address] [address] Caitlin Martinez OXY Negative Normal NEGATIVE [facility] Comment on above: Performed By: #### C BC #### [facility] [address] [address] [address] Caitlin Martinez PCP Negative Normal NEGATIVE [facility] Comment on above: Performed By: #### C BC #### [facility] [address] [address] [address] Caitlin Martinez PPX Negative Normal NEGATIVE [facility] Comment on above: Performed By: #### C BC #### [facility] [address] [place] [address] Dr. Caitlin Martinez TCA Negative Normal NEGATIVE [facility] Comment on above: Performed By: #### C BC #### [facility] [address] [place] [address] Dr. Caitlin Martinez THC Negative Normal NEGATIVE [facility] Comment on above: Performed By: #### C BC #### [facility] [address] [place] [address] Dr. Caitlin Martinez TYPE AND SCREENon 02-08-2022 TYPE AND SCREEN Negative Normal [facility] Comment on above: Performed By: #### I HORACIO #### [facility] [address] [place] [address] Dr. Caitlin Martinez US PREG BIOPHY W [...] DAVID BLACKMON Date: 2022-02-05 16:28 Normal [facility] AMNISUREon 01-25-2022 AMNISURE Negative Normal NEGATIVE [facility] Comment on above: Performed By: #### A MNI #### [facility] [address] [place] [address] Dr. Caitlin Martinez CULTURE URINEon 01-25-2022 CULTURE URINE Culture Observations : No growth Normal [facility] Comment on above: Performed By: #### U RCX #### [facility] [address] [place] [address] Dr. Caitlin Martinez UA (CLEAN/CATCH) SILVERWARE BUFFER/MICRO I F IND.on 01-25-2022 Bilirubin Ql (U) Negative Normal NEGATIVE [facility] Comment on above: Performed By: #### C VDTBH #### [facility] [address] [place] [address] Dr. Caitlin Martinez Clarity (U) SL CLOUDY Abnormal CLEAR [facility] Comment on above: Performed By: #### C VDTBH #### [facility] [address] [place] [address] Dr. Caitlin Martinez Color (U) LT. YELLOW Normal YELLOW [facility] Comment on above: Performed By: #### C VDTBH #### [facility] [address] [place] [address] Dr. Caitlin Martinez Glucose Ql (U) Negative Normal NEGATIVE [facility] Comment on above: Performed By: #### C VDTBH #### [facility] [address] [place] [address] Dr. Caitlin Martinez Hemoglobin Ql (U) TRACE-INTACT Abnormal NEGATIVE [facility] Comment on above: Performed By: #### C VDTBH #### [facility] [address] [place] [address] Dr. Caitlin Martinez Ketones Ql (U) Negative Normal NEGATIVE [facility] Comment on above: Performed By: #### C VDTBH #### [facility] [address] [place] [address] Dr. Caitlin Martinez LEUKOCYTES TRACE Abnormal NEGATIVE [facility] Comment on above: Performed By: #### C VDTBH #### [facility] [address] [place] [address] Dr. Caitlin Martinez Nitrite Ql (U) Negative Normal NEGATIVE [facility] Comment on above: Performed By: #### C VDTBH #### [facility] [address] [place] [address] Dr. Caitlin Martinez pH (U) 6.5 [pH] Normal 5-9 [facility] Comment on above: Performed By: #### C VDTBH #### [facility] [address] [place] [address] Dr. Caitlin Martinez SPEC GRAVITY 1.020 Normal 1.005-<=1.025 [facility] Comment on above: Performed By: #### C VDTBH #### [facility] [address] [place] [address] Dr. Caitlin Martinez UA PROTEIN Negative Normal NEGATIVE/ TRACE [facility] Comment on above: Performed By: #### C VDTBH #### [facility] [address] [place] [address] Dr. Caitlin Martinez UR MICRO IND INDICATED Normal [facility] Comment on above: Performed By: #### C VDTBH #### [facility] [address] [place] [address] Dr. Caitlin Martinez Urobilinogen Qn (U) 0.2 {Barbara'U}/dL Normal 0.2 - 1. 0 [facility] Comment on above: Performed By: #### C VDTBH #### [facility] [address] [place] [address] Dr. Caitlin Martinez URINE MICROSCOPIC ONLYon BACTERIA MODERATE Abnormal NONE SEEN [facility] Comment on above: Performed By: #### C VDTBH #### [facility] [address] [place] [address] Dr. Caitlin Martinez Bacteria identified Cx Nom (U) INDICATED Normal [facility] Comment on above: Performed By: #### C VDTBH #### [facility] [address] [place] [address] Dr. Caitlin Martinez CAST NONE SEEN Normal NONE SEEN [facility] Comment on above: Performed By: #### C VDTBH #### [facility] [address] [place] [address] Dr. Caitlin Martinez Crystals LM Nom (Urine sed) NONE SEEN Normal NONE SEEN [facility] Comment on above: Performed By: #### C VDTBH #### [facility] [address] [place] [address] Dr. Caitlin Martinez Epithelial cells LM Ql (Urine sed) FEW Abnormal NONE SEEN /RARE [facility] Comment on above: Performed By: #### C VDTBH #### [facility] [address] [place] [address] Dr. Caitlin Martinez MUCOUS TRACE Abnormal NONE SEEN [facility] Comment on above: Performed By: #### C VDTBH #### [facility] [address] [place] [address] Dr. Caitlin Martinez RBC 2-5 Abnormal 0-2 [facility] Comment on above: Performed By: #### C VDTBH #### [facility] [address] [place] [address] Dr. Caitlin Martinez WBC 0-2 Abnormal NONE SEEN [facility] Comment on above: Performed By: #### C VDTBH #### [facility] [address] [place] [address] Dr. Caitlin Martinez AMYLASEon 01-16-2022 Amylase [Catalytic activity/Vol] 49 U/L Normal 25-115 [facility] Comment on above: Performed By: #### C VDTBH #### [facility] [address] [place] [address] Dr. Caitlin Martinez BUNon 01-16-2022 Urea nitrogen [Mass/Vol] 3.0 mg/dL Critically low 7.0-18.0 [facility] Comment on above: Performed By: #### C BC #### [facility] [address] [place] [address] Dr. Caitlin Martinez CBC AUTO DIFFon 01-16-2022 BASO # 0.1 103/ul Normal 0.0-0.1 [facility] Comment on above: Performed By: #### U RCX #### [facility] [address] [place] [address] Dr. Caitlin Martinez Basophils/100 WBC (Bld) 0.6 % Normal 0.2-2.0 [facility] Comment on above: Performed By: #### U RCX #### [facility] [address] [place] [address] Dr. Caitlin Martinez EO # 0.3 103/ul Normal 0.0-0.7 [facility] Comment on above: Performed By: #### U RCX #### [facility] [address] [place] [address] Dr. Caitlin Martinez Eosinophils/100 WBC (Bld) 2.6 % Normal 0.9-7.0 [facility] Comment on above: Performed By: #### U RCX #### [facility] [address] [place] [address] Dr. Caitlin Martinez Erythrocyte distribution width (RBC) [Ratio] 14.4 % Normal 11.0-15.0 [facility] Comment on above: Performed By: #### U RCX #### [facility] [address] [place] [address] Dr. Caitlin Martinez Hematocrit (Bld) [Volume fraction] 28.4 % Critically low 36.0-48.0 [facility] Comment on above: Performed By: #### U RCX #### [facility] [address] [place] [address] Dr. Caitlin Martinez Hemoglobin (Bld) [Mass/Vol] 9.0 g/dL Critically low 12.0-16.0 [facility] Comment on above: Performed By: #### U RCX #### [facility] [address] [place] [address] Dr. Caitlin Martinez IG # 0.11 10e3/ul Critically high 0.00-0.03 [facility] Comment on above: Performed By: #### U RCX #### [facility] [address] [place] [address] Dr. Caitlin Martinez IG % 1.1 % Critically high 0.0-0.5 [facility] Comment on above: Performed By: #### U RCX #### [facility] [address] [place] [address] Dr. Caitlin Martinez LYMPH # 2.2 103/ul Normal 1.2-3.8 [facility] Comment on above: Performed By: #### U RCX #### [facility] [address] [place] [address] Dr. Caitlin Martinez Lymphocytes/100 WBC (Bld) 21.0 % Normal 20.5-60.0 [facility] Comment on above: Performed By: #### U RCX #### [facility] [address] [place] [address] Dr. Caitlin Martinez MANUAL DIFF REQ NO Normal [facility] Comment on above: Performed By: #### U RCX #### [facility] [address] [place] [address] Dr. Caitlin Martinez MCH (RBC) [Entitic mass] 28.2 pg Normal 26.7-34.0 [facility] Comment on above: Performed By: #### U RCX #### [facility] [address] [place] [address] Dr. Caitlin Martinez MCHC (RBC) [Mass/Vol] 31.7 g/dL Normal 29.9-35.2 [facility] Comment on above: Performed By: #### U RCX #### [facility] [address] [place] [address] Dr. Caitlin Martinez MCV (RBC) [Entitic vol] 89.0 fL Normal 81.0-99.0 [facility] Comment on above: Performed By: #### U RCX #### [facility] [address] [place] [address] Dr. Caitlin Martinez MONO # 0.9 103/ul Critically high 0.3-0.8 [facility] Comment on above: Performed By: #### U RCX #### [facility] [address] [place] [address] Dr. Caitlin Martinez Monocytes/100 WBC (Bld) 8.9 % Normal 1.7-12.0 [facility] Comment on above: Performed By: #### U RCX #### [facility] [address] [place] [address] Dr. Caitlin Martinez NEUT # 6.8 103/ul Critically high 1.4-6.5 [facility] Comment on above: Performed By: #### U RCX #### [facility] [address] [place] [address] Dr. Caitlin Martinez Neutrophils/100 WBC (Bld) 65.8 % Normal 43.0-75.0 [facility] Comment on above: Performed By: #### U RCX #### [facility] [address] [place] [address] Dr. Caitlin Martinez Platelet mean volume (Bld) [Entitic vol] 8.6 fL Critically low 9.5-13.5 [facility] Comment on above: Performed By: #### U RCX #### [facility] [address] [place] [address] Dr. Caitlin Martinez PLT 322 103/ul Normal 150-450 [facility] Comment on above: Performed By: #### U RCX #### [facility] [address] [place] [address] Dr. Caitlin Martinez RBC 3.19 106/ul Critically low 4.20-5.40 [facility] Comment on above: Performed By: #### U RCX #### [facility] [address] [place] [address] Dr. Caitlin Martinez WBC 10.3 103/ul Normal 4.0-11.0 [facility] Comment on above: Performed By: #### U RCX #### [facility] [address] [place] [address] Dr. Caitlin Martinez CREATININEon 01-16-2022 Creatinine [Mass/Vol] 0.55 mg/dL Normal 0.55-1.02 [facility] Comment on above: Performed By: #### C VDTBH #### [facility] [address] [place] [address] Dr. Caitlin Martinez EGFR-AF MACANESE >60 Normal >=60 [facility] Comment on above: Performed By: #### C VDTBH #### [facility] [address] [place] [address] Dr. Caitlin Martinez EGFR-NON AF MACANESE >60 Normal >=60 [facility] Comment on above: Performed By: #### C VDTBH #### [facility] [address] [place] [address] Dr. Caitlin Martinez ELECTROLYTESon 01-16-2022 Anion gap [Moles/Vol] 13.6 mmol/L Normal [facility] Comment on above: Performed By: #### C VDTBH #### [facility] [address] [place] [address] Dr. Caitlin Martinez Chloride [Moles/Vol] 106 mmol/L Normal 98-107 [facility] Comment on above: Performed By: #### C VDTBH #### [facility] [address] [place] [address] Dr. Caitlin Martinez CO2 [Moles/Vol] 22.9 mmol/L Normal 21.0-32.0 [facility] Comment on above: Performed By: #### C VDTBH #### [facility] [address] [place] [address] Dr. Caitlin Martinez Potassium [Moles/Vol] 3.5 mmol/L Normal 3.5-5.1 [facility] Comment on above: Performed By: #### C VDTBH #### [facility] [address] [place] [address] Dr. Caitlin Martinez Sodium [Moles/Vol] 139 mmol/L Normal 136-145 [facility] Comment on above: Performed By: #### C VDTBH #### [facility] [address] [place] [address] Dr. Caitlin Martinez LIPASEon 01-16-2022 Lipase [Catalytic activity/Vol] 66.0 U/L Critically low 73.0-393.0 [facility] Comment on above: Performed By: #### C BC #### [facility] [address] [place] [address] Dr. Caitlin Martinez SGOTon 01-16-2022 AST [Catalytic activity/Vol] 12 U/L Critically low 15-37 [facility] Comment on above: Performed By: #### C VDTBH #### [facility] [address] [place] [address] Dr. Caitlin Martinez SGPTon 01-16-2022 ALT [Catalytic activity/Vol] 9 U/L Critically low 14-59 [facility] Comment on above: Performed By: #### C VDTBH #### [facility] [address] [place] [address] Dr. Caitlin Martinez CBC AUTO DIFFon 01-15-2022 BASO # 0.1 103/ul Normal 0.0-0.1 [facility] Comment on above: Performed By: #### C VDTBH #### [facility] [address] [place] [address] Dr. Caitlin Martinez Basophils/100 WBC (Bld) 0.4 % Normal 0.2-2.0 [facility] Comment on above: Performed By: #### C VDTBH #### [facility] [address] [place] [address] Dr. Caitlin Martinez EO # 0.2 103/ul Normal 0.0-0.7 [facility] Comment on above: Performed By: #### C VDTBH #### [facility] [address] [place] [address] Dr. Caitlin Martinez Eosinophils/100 WBC (Bld) 1.4 % Normal 0.9-7.0 [facility] Comment on above: Performed By: #### C VDTBH #### [facility] [address] [place] [address] Dr. Caitlin Martinez Erythrocyte distribution width (RBC) [Ratio] 14.1 % Normal 11.0-15.0 [facility] Comment on above: Performed By: #### C VDTBH #### [facility] [address] [place] [address] Dr. Caitlin Martinez Hematocrit (Bld) [Volume fraction] 28.4 % Critically low 36.0-48.0 [facility] Comment on above: Performed By: #### C VDTBH #### [facility] [address] [place] [address] Dr. Caitlin Martinez Hemoglobin (Bld) [Mass/Vol] 9.0 g/dL Critically low 12.0-16.0 [facility] Comment on above: Performed By: #### C VDTBH #### [facility] [address] [place] [address] Dr. Caitlin Martinez IG # 0.18 10e3/ul Critically high 0.00-0.03 [facility] Comment on above: Performed By: #### C VDTBH #### [facility] [address] [place] [address] Dr. Caitlin Martinez IG % 1.3 % Critically high 0.0-0.5 [facility] Comment on above: Performed By: #### C VDTBH #### [facility] [address] [place] [address] Dr. Caitlin Martinez LYMPH # 2.4 103/ul Normal 1.2-3.8 [facility] Comment on above: Performed By: #### C VDTBH #### [facility] [address] [place] [address] Dr. Caitlin Martinez Lymphocytes/100 WBC (Bld) 16.8 % Critically low 20.5-60.0 [facility] Comment on above: Performed By: #### C VDTBH #### [facility] [address] [place] [address] Dr. Caitlin Martinez MANUAL DIFF REQ NO Normal [facility] Comment on above: Performed By: #### C VDTBH #### [facility] [address] [place] [address] Dr. Caitlin Martinez MCH (RBC) [Entitic mass] 27.9 pg Normal 26.7-34.0 [facility] Comment on above: Performed By: #### C VDTBH #### [facility] [address] [place] [address] Dr. Caitlin Martinez MCHC (RBC) [Mass/Vol] 31.7 g/dL Normal 29.9-35.2 [facility] Comment on above: Performed By: #### C VDTBH #### [facility] [address] [place] [address] Dr. Caitlin Martinez MCV (RBC) [Entitic vol] 87.9 fL Normal 81.0-99.0 [facility] Comment on above: Performed By: #### C VDTBH #### [facility] [address] [place] [address] Dr. Caitlin Martinez MONO # 0.9 103/ul Critically high 0.3-0.8 [facility] Comment on above: Performed By: #### C VDTBH #### [facility] [address] [place] [address] Dr. Caitlin Martinez Monocytes/100 WBC (Bld) 6.7 % Normal 1.7-12.0 [facility] Comment on above: Performed By: #### C VDTBH #### [facility] [address] [place] [address] Dr. Caitlin Martinez NEUT # 10.3 103/ul Critically high 1.4-6.5 [facility] Comment on above: Performed By: #### C VDTBH #### [facility] [facility] [address] [place] [address] Dr. Caitlin Martinez Neutrophils/100 WBC (Bld) 73.4 % Normal 43.0-75.0 [facility] Comment on above: Performed By: #### C VDTBH #### [facility] [address] [place] [address] Dr. Caitlin Martinez Platelet mean volume (Bld) [Entitic vol] 9.0 fL Critically low 9.5-13.5 [facility] Comment on above: Performed By: #### C VDTBH #### [facility] [address] [place] [address] Dr. Caitlin Martinez PLT 318 103/ul Normal 150-450 [facility] Comment on above: Performed By: #### C VDTBH #### [facility] [address] [place] [address] Dr. Caitlin Martinez RBC 3.23 106/ul Critically low 4.20-5.40 [facility] Comment on above: Performed By: #### C VDTBH #### [facility] [address] [place] [address] Dr. Caitlin Martinez WBC 14.0 103/ul Critically high 4.0-11.0 [facility] Comment on above: Performed By: #### C VDTBH #### [facility] [address] [place] [address] ABD/PELVIS WO CONon [...] DAVID BLACKMON Date: 2022-01-15 16:31 Normal [facility] CULTURE URINEon 01-15-2022 CULTURE URINE Culture Observations : LIGHT GROWTH OF MIXED GENITAL COSME. NO POTENTIAL PATHOGENS SEEN. Normal [facility] Comment on above: Performed By: #### U RCX #### [facility] [address] [address] [address] Caitlin Martinez UA (CLEAN/CATCH) SILVERWARE BUFFER/MICRO I F IND.on 01-15-2022 Bilirubin Ql (U) Negative Normal NEGATIVE [facility] Comment on above: Performed By: #### C BC #### [facility] [address] [place], [place] [address] Dr. Caitlin Martinez Clarity (U) CLEAR Normal CLEAR [facility] Comment on above: Performed By: #### C BC #### [facility] [address] [place] [address] Dr. Caitlin Martinez Color (U) LT. YELLOW Normal YELLOW [facility] Comment on above: Performed By: #### C BC #### [facility] [address] [place] [address] Dr. Caitlin Martinez Glucose Ql (U) Negative Normal NEGATIVE [facility] Comment on above: Performed By: #### C BC #### [facility] [address] [place] [address] Dr. Caitlin Martinez Hemoglobin Ql (U) Negative Normal NEGATIVE [facility] Comment on above: Performed By: #### C BC #### [facility] [address] [place] [address] Dr. Caitlin Martinez Ketones Ql (U) Negative Normal NEGATIVE [facility] Comment on above: Performed By: #### C BC #### [facility] [address] [place] [address] Dr. Caitlin Martinez LEUKOCYTES TRACE Abnormal NEGATIVE [facility] Comment on above: Performed By: #### C BC #### [facility] [address] [place] [address] Dr. Caitlin Martinez Nitrite Ql (U) Negative Normal NEGATIVE [facility] Comment on above: Performed By: #### C BC #### [facility] [address] [place] [address] Dr. Caitlin Martinez pH (U) 7.0 [pH] Normal 5-9 [facility] Comment on above: Performed By: #### C BC #### [facility] [address] [place] [address] Dr. Caitlin Martinez SPEC GRAVITY 1.010 Normal 1.005-<=1.025 [facility] Comment on above: Performed By: #### C BC #### [facility] [address] [place] [address] Dr. Caitlin Martinez UA PROTEIN Negative Normal NEGATIVE/ TRACE [facility] Comment on above: Performed By: #### C BC #### [facility] [address] [place] [address] Dr. Caitlin Martinez UR MICRO IND INDICATED Normal [facility] Comment on above: Performed By: #### C BC #### [facility] [address] [place] [address] Dr. Caitlin Martinez Urobilinogen Qn (U) 0.2 {Barbara'U}/dL Normal 0.2 - 1. 0 [facility] Comment on above: Performed By: #### C BC #### [facility] [address] [place] [address] Dr. Caitlin Martinez URINE MICROSCOPIC ONLYon BACTERIA MODERATE Abnormal NONE SEEN [facility] Comment on above: Performed By: #### C BC #### [facility] [address] [place] [address] Dr. Caitlin Martinez Bacteria identified Cx Nom (U) INDICATED Normal [facility] Comment on above: Performed By: #### C BC #### [facility] [address] [place] [address] Dr. Caitlin Martinez CAST NONE SEEN Normal NONE SEEN [facility] Comment on above: Performed By: #### C BC #### [facility] [address] [place] [address] Dr. Caitlin Martinez Crystals LM Nom (Urine sed) NONE SEEN Normal NONE SEEN [facility] Comment on above: Performed By: #### C BC #### [facility] [address] [place] [address] Dr. Caitlin Martinez Epithelial cells LM Ql (Urine sed) MODERATE Abnormal NONE SEEN /RARE [facility] Comment on above: Performed By: #### C BC #### [facility] [address] [place] [address] Dr. Caitlin Martinez MUCOUS NONE SEEN Normal NONE SEEN [facility] Comment on above: Performed By: #### C BC #### [facility] [address] [place] [address] Dr. Caitlin Martinez RBC NONE SEEN Abnormal 0-2 [facility] Comment on above: Performed By: #### C BC #### [facility] [address] [place] [address] Dr. Caitlin Martinez WBC 2-5 Abnormal NONE SEEN [facility] Comment on above: Performed By: #### C BC #### [facility] [address] [address] [address] Caitlin Martinez US APPENDIXon 01-15-2022 US [...] by: DAVID BLACKMON Date: 2022-01-15 14:14 Normal [facility] US PREG GROWTHon 01-15-2022 US PREG GROWTH [...] by: DAVID BLACKMON Date: 2022-01-15 10:59 Normal [facility] US PREG PLACENTAon US PREG PLACENTA EXAMINATION: [...] DAVID BLACKMON Date: 2022-01-15 10:57 Normal [facility] UA (CLEAN/CATCH) SILVERWARE BUFFER/MICRO I F IND.on 12-29-2021 Bilirubin Ql (U) Negative Normal NEGATIVE [facility] Comment on above: Performed By: #### C BC #### [facility] [address] [place] [address] Dr. Caitlin Martinez Clarity (U) CLEAR Normal CLEAR [facility] Comment on above: Performed By: #### C BC #### [facility] [address] [place] [address] Dr. Caitlin Martinez Color (U) LT. YELLOW Normal YELLOW [facility] Comment on above: Performed By: #### C BC #### [facility] [address] [place] [address] Dr. Caitlin Martinez Glucose Ql (U) Negative Normal NEGATIVE [facility] Comment on above: Performed By: #### C BC #### [facility] [address] [place] [address] Dr. Caitlin Martinez Hemoglobin Ql (U) Negative Normal NEGATIVE [facility] Comment on above: Performed By: #### C BC #### [facility] [address] [place] [address] Dr. Caitlin Martinez Ketones Ql (U) Negative Normal NEGATIVE [facility] Comment on above: Performed By: #### C BC #### [facility] [address] [place] [address] Dr. Caitlin Martinez LEUKOCYTES Negative Normal NEGATIVE [facility] Comment on above: Performed By: #### C BC #### [facility] [address] [place] [address] Dr. Caitlin Martinez Nitrite Ql (U) Negative Normal NEGATIVE [facility] Comment on above: Performed By: #### C BC #### [facility] [address] [place] [address] Dr. Caitlin Martinez pH (U) 6.5 [pH] Normal 5-9 [facility] Comment on above: Performed By: #### C BC #### [facility] [address] [place] [address] Dr. Caitlin Martinez SPEC GRAVITY 1.020 Normal 1.005-<=1.025 [facility] Comment on above: Performed By: #### C BC #### [facility] [address] [place] [address] Dr. Caitlin Martinez UA PROTEIN Negative Normal NEGATIVE/ TRACE [facility] Comment on above: Performed By: #### C BC #### [facility] [address] [place] [address] Dr. Caitlin Martinez UR MICRO IND NOT INDICATED Normal [facility] Comment on above: Performed By: #### C BC #### [facility] [address] [place] [address] Dr. Caitlin Martinez Urobilinogen Qn (U) 1.0 {Barbara'U}/dL Normal 0.2 - 1. 0 [facility] Comment on above: Performed By: #### C BC #### [facility] [address] [place] [address] Dr. Caitlin Martinez US PREG CERVICAL LENGTHon [...] KIRK OATES Date: 2021-12-29 15:53 Normal [facility] UA (CLEAN/CATCH) SILVERWARE BUFFER/MICRO I F IND.on 12-18-2021 Bilirubin Ql (U) Negative Normal NEGATIVE [facility] Comment on above: Performed By: #### C BC #### [facility] [address] [place] [address] Dr. Caitlin Martinez Clarity (U) CLEAR Normal CLEAR [facility] Comment on above: Performed By: #### C BC #### [facility] [address] [place] [address] Dr. Caitlin Martinez Color (U) YELLOW Normal YELLOW [facility] Comment on above: Performed By: #### C BC #### [facility] [address] [place] [address] Dr. Caitlin Martinez Glucose Ql (U) Negative Normal NEGATIVE The [facility] Comment on above: Performed By: #### C BC #### [facility] [address] [place] [address] Dr. Caitlin Martinez Hemoglobin Ql (U) Negative Normal NEGATIVE [facility] Comment on above: Performed By: #### C BC #### [facility] [address] [place] [address] Dr. Caitlin Martinez Ketones Ql (U) TRACE Abnormal NEGATIVE The [facility] Comment on above: Performed By: #### C BC #### [facility] [address] [place] [address] Dr. Caitlin Martinez LEUKOCYTES Negative Normal NEGATIVE [facility] Comment on above: Performed By: #### C BC #### [facility] [address] [place] [address] Dr. Caitlin Martinez Nitrite Ql (U) Negative Normal NEGATIVE [facility] Comment on above: Performed By: #### C BC #### [facility] [address] [place] [address] Dr. Caitlin Martinez pH (U) 6.0 [pH] Normal 5-9 [facility] Comment on above: Performed By: #### C BC #### [facility] [address] [place] [address] Dr. Caitlin Martinez SPEC GRAVITY 1.025 Normal 1.005-<=1.025 [facility] Comment on above: Performed By: #### C BC #### [facility] [address] [place] [address] Dr. Caitlin Martinez UA PROTEIN Negative Normal NEGATIVE/ TRACE [facility] Comment on above: Performed By: #### C BC #### [facility] [address] [place] [address] Dr. Caitlin Martinez UR MICRO IND NOT INDICATED Normal [facility] Comment on above: Performed By: #### C BC #### [facility] [address] [place] [address] Dr. Caitlin Martinez Urobilinogen Qn (U) 4 {Barbara'U}/dL Abnormal 0.2 - 1.0 [facility] Comment on above: Performed By: #### C BC #### [facility] [address] [place] [address] Dr. Caitlin Martinez RHOGAMon 11-28-2021 RHOGAM Status Information Issued Quantity 1 Product ID Rh Immune Globulin Lot Number [id number] Issue Date/Time [id number] Normal [facility] Comment on above: Performed By: #### I HORACIO #### [facility] [address] [place] [address] Dr. Caitlin Martinez TYPE AND SCREENon 11-27-2021 TYPE AND SCREEN Negative Normal [facility] Comment on above: Performed By: #### T NS #### [facility] [address] [place] [address] Dr. Caitlin Martinez CULTURE URINEon 11-23-2021 CULTURE URINE Culture Observations : No growth Normal [facility] Comment on above: Performed By: #### I HORACIO #### [facility] [address] [place] [address] Dr. Caitlin Martinez UA (CLEAN/CATCH) SILVERWARE BUFFER/MICRO I F IND.on 11-23-2021 Bilirubin Ql (U) Negative Normal NEGATIVE [facility] Comment on above: Performed By: #### U RCX #### [facility] [address] [place] [address] Dr. Caitlin Martinez Clarity (U) CLEAR Normal CLEAR [facility] Comment on above: Performed By: #### U RCX #### [facility] [address] [place] [address] Dr. Caitlin Martinez Color (U) LT. YELLOW Normal YELLOW [facility] Comment on above: Performed By: #### U RCX #### [facility] [address] [place] [address] Dr. Caitlin Martinez Glucose Ql (U) Negative Normal NEGATIVE The [facility] Comment on above: Performed By: #### U RCX #### [facility] [address] [place] [address] Dr. Caitlin Martinez Hemoglobin Ql (U) Negative Normal NEGATIVE [facility] Comment on above: Performed By: #### U RCX #### [facility] [address] [address] [address] Caitlin Martinez Ketones Ql (U) Negative Normal NEGATIVE The [facility] Comment on above: Performed By: #### U RCX #### [facility] [address] [place] [address] Dr. Caitlin Martinez LEUKOCYTES SMALL Abnormal NEGATIVE [facility] Comment on above: Performed By: #### U RCX #### [facility] [address] [address] [address] Caitlin Martinez Nitrite Ql (U) Negative Normal NEGATIVE The [facility] Comment on above: Performed By: #### U RCX #### [facility] [address] [place] [address] Dr. Caitlin Martinez pH (U) 6.5 [pH] Normal 5-9 [facility] Comment on above: Performed By: #### U RCX #### [facility] [address] [place] [address] Dr. Caitlin Martinez SPEC GRAVITY 1.010 Normal 1.005-<=1.025 [facility] Comment on above: Performed By: #### U RCX #### [facility] [address] [place] [address] Dr. Caitlin Martinez UA PROTEIN Negative Normal NEGATIVE/ TRACE [facility] Comment on above: Performed By: #### U RCX #### [facility] [address] [place] [address] Dr. Caitlin Martinez UR MICRO IND INDICATED Normal [facility] Comment on above: Performed By: #### U RCX #### [facility] [address] [place] [address] Dr. Caitlin Martinez Urobilinogen Qn (U) 0.2 {Barbara'U}/dL Normal 0.2 - 1. 0 [facility] Comment on above: Performed By: #### U RCX #### [facility] [address] [place] [address] Dr. Caitlin Martinez URINE MICROSCOPIC ONLYon BACTERIA TRACE Abnormal NONE SEEN [facility] Comment on above: Performed By: #### U RCX #### [facility] [address] [place] [address] Dr. Caitlin Martinez Bacteria identified Cx Nom (U) INDICATED Normal [facility] Comment on above: Performed By: #### U RCX #### [facility] [address] [place] [address] Dr. Caitlin Martinez CAST SEEN Abnormal NONE SEEN [facility] Comment on above: Performed By: #### U RCX #### [facility] [address] [place] [address] Dr. Caitlin Martinez Crystals LM Nom (Urine sed) SEEN Abnormal NONE SEEN [facility] Comment on above: Performed By: #### U RCX #### [facility] [address] [place] [address] Dr. Caitlin Martinez Epithelial cells LM Ql (Urine sed) RARE Normal NONE SEEN /RARE [facility] Comment on above: Performed By: #### U RCX #### [facility] [address] [place] [address] Dr. Caitlin Martinez MUCOUS TRACE Abnormal NONE SEEN [facility] Comment on above: Performed By: #### U RCX #### [facility] [address] [place] [address] Dr. Caitlin Martinez RBC 0-2 Normal 0-2 [facility] Comment on above: Performed By: #### U RCX #### [facility] [address] [place] [address] Dr. Caitlin Martinez WBC 2-5 Abnormal NONE SEEN [facility] Comment on above: Performed By: #### U RCX #### [facility] [address] [place] [address] Dr. Caitlin Martinez GLUCOSE - 1HRon 11-06-2021 Glucose [Mass/Vol] 131 mg/dL Critically high 74-106 [facility] Comment on above: Performed By: #### I HORACIO #### [facility] [address] [place] [address] Dr. Caitlin Martinez HEMOGRAM AND PLATELon 05-23- 2022 Hematocrit (Bld) [Volume fraction] 34.2 % Critically low 36.0-48.0 [facility] Comment on above: Performed By: #### C BC #### [facility] [address] [place] [address] Dr. Caitlin Martinez Hemoglobin (Bld) [Mass/Vol] 11.3 g/dL Critically low 12.0-16.0 [facility] Comment on above: Performed By: #### C BC #### [facility] [address] [place] [address] Dr. Caitlin Martinez MCH (RBC) [Entitic mass] 31.7 pg Normal 26.7-34.0 [facility] Comment on above: Performed By: #### C BC #### [facility] [address] [place] [address] Dr. Caitlin Martinez MCHC (RBC) [Mass/Vol] 33.0 g/dL Normal 29.9-35.2 [facility] Comment on above: Performed By: #### C BC #### [facility] [address] [place] [address] Dr. Caitlin Martinez MCV (RBC) [Entitic vol] 96.1 fL Normal 81.0-99.0 [facility] Comment on above: Performed By: #### C BC #### [facility] [address] [place] [address] Dr. Caitlin Martinez PLT 372 103/ul Normal 150-450 [facility] Comment on above: Performed By: #### C BC #### [facility] [address] [place] [address] Dr. Caitlin Martinez RBC 3.56 106/ul Critically low 4.20-5.40 [facility] Comment on above: Performed By: #### C BC #### [facility] [address] [place] [address] Dr. Caitlin Martinez WBC 10.1 103/ul Normal 4.0-11.0 [facility] Comment on above: Performed By: #### C BC #### [facility] [address] [place] [address] Dr. Caitlin Martinez CHLAMYDIA/GONOCOCCUS JONATAN (SW AB/URINE/PAPon 10-31-2021 Chlamydia trachomatis, JONATAN Negative Normal Negative [facility] Comment on above: Performed By: #### C BC #### [facility] [address] [place] [address] Dr. Caitlin Martinez Neisseria gonorrhoeae, JONATAN Negative Normal Negative [facility] Comment on above: Performed By: #### C BC #### [facility] [address] [place] [address] Dr. Caitlin Martinez VAGINITIS/VAGINOSIS DNA PROB Paramjit 10-29-2021 Selena species Negative Normal Negative [facility] Comment on above: Performed By: #### U RCX #### [facility] [address] [place] [address] Dr. Caitlin Martinez Gardnerella vaginalis Negative Normal Negative [facility] Comment on above: Performed By: #### U RCX #### [facility] [address] [place] [address] Dr. Caitlin Martinez Trichomonas vaginalis Negative Normal Negative [facility] Comment on above: Performed By: #### U RCX #### [facility] [address] [place] [address] Dr. Caitlin Martinez US PREG INCOMPLETE ANATOMYon 10-26-2021 PREG INCOMPLETE ANATOMY EXAMINATION: US PREG INCOMPLETE [...] DAVID BLACKMON Date: 2021-10-26 12:05 Normal [facility] CBC W MANUAL DIFFon 10-25-19 22 ATYPICAL LYMPH # Normal [facility] Comment on above: Performed By: #### U RCX #### [facility] [address] [place] [address] Dr. Caitlin Martinez ATYPICAL LYMPH % Normal [facility] Comment on above: Performed By: #### U RCX #### [facility] [address] [place] [address] Dr. Caitlin Martinez BAND # 0.1 103/ul Normal 0.0-0.3 [facility] Comment on above: Performed By: #### U RCX #### [facility] [address] [place] [address] Dr. Caitlin Martinez BAND % 1 % Normal 0-5 [facility] Comment on above: Performed By: #### U RCX #### [facility] [address] [place] [address] Dr. Caitlin Martinez BASOM # 0.00 103/ul Normal 0.00-0.10 [facility] Comment on above: Performed By: #### U RCX #### [facility] [address] [place] [address] Dr. Caitlin Martinez BASOM % 0.0 % Critically low 0.2-2.0 [facility] Comment on above: Performed By: #### U RCX #### [facility] [address] [place] [address] Dr. Caitlin Martinez BLAST # Normal [facility] Comment on above: Performed By: #### U RCX #### [facility] [address] [place] [address] Dr. Caitlin Martinez BLAST % Normal [facility] Comment on above: Performed By: #### U RCX #### [facility] [address] [place] [address] Dr. Caitlin Martinez CORRECTED WBC Normal 4.0-11.0 [facility] Comment on above: Performed By: #### U RCX #### [facility] [address] [place] [address] Dr. Caitlin Martinez EOS # 0.12 103/ul Normal 0.00-0.70 [facility] Comment on above: Performed By: #### U RCX #### [facility] [address] [place] [address] Dr. Caitlin Martinez EOS% 1.0 % Normal 0.9-7.0 [facility] Comment on above: Performed By: #### U RCX #### [facility] [address] [address] [address] Caitlin Martinez HCT 31.5 % Critically low 36.0-48.0 [facility] Comment on above: Performed By: #### U RCX #### [facility] [address] [address] Dr. Caitlin Martinez HGB 10.5 g/dl Critically low 12.0-16.0 The [facility] Comment on above: Performed By: #### U RCX #### [facility] [address] [address] [address] Caitlin Martinez LYMPHM # 0.37 103/ul Critically low 1.20-3.80 [facility] Comment on above: Performed By: #### U RCX #### [facility] [address] [place] [address] Dr. Caitlin Martinez LYMPHM% 3.0 % Critically low 20.5-60.0 [facility] Comment on above: Performed By: #### U RCX #### [facility] [address] [address] [address] Caitlin Martinez MCH 31.8 pg Normal 26.7-34.0 [facility] Comment on above: Performed By: #### U RCX #### [facility] [address] [address] [address] Caitlin Martinez MCHC 33.3 g/dl Normal 29.9-35.2 [facility] Comment on above: Performed By: #### U RCX #### [facility] [address] [address] [address] Caitlin Martinez MCV 95.5 fL Normal 81.0-99.0 [facility] Comment on above: Performed By: #### U RCX #### [facility] [address] [place] [address] Dr. Caitlin Martinez METAMYELOCYTE # Normal The [facility] Comment on above: Performed By: #### U RCX #### [facility] [address] [place] [address] Dr. Caitlin Martinez METAMYELOCYTE % Normal [facility] Comment on above: Performed By: #### U RCX #### [facility] [address] [address] [address] Caitlin Martinez MONOM# 0.73 103/ul Normal 0.30-0.80 [facility] Comment on above: Performed By: #### U RCX #### [facility] [address] [address] [address] Caitlin Martinez MONOM% 6.0 % Normal 1.7-12.0 [facility] Comment on above: Performed By: #### U RCX #### [facility] [address] [address] [address] Caitlin Martinez MPV 9.5 fL Normal 9.5-13.5 [facility] Comment on above: Performed By: #### U RCX #### [facility] [address] [place] [address] Dr. Caitlin Martinez MYELOCYTE # Normal [facility] Comment on above: Performed By: #### U RCX #### [facility] [address] [place] [address] Dr. Caitlin Martinez MYELOCYTE % Normal [facility] Comment on above: Performed By: #### U RCX #### [facility] [address] [place] [address] Dr. Caitlin Martinez NRBC Normal [facility] Comment on above: Performed By: #### U RCX #### [facility] [address] [place] [address] Dr. Caitlin Martinez PLT 275 103/ul Normal 150-450 [facility] Comment on above: Performed By: #### U RCX #### [facility] [address] [place] [address] Dr. Caitlin Martinez RBC 3.30 106/ul Critically low 4.20-5.40 [facility] Comment on above: Performed By: #### U RCX #### [facility] [address] [place] [address] Dr. Caitlin Martinez RDW 13.6 % Normal 11.0-15.0 [facility] Comment on above: Performed By: #### U RCX #### [facility] [address] [address] [address] Caitlin Martinez SEG # 10.86 103/ul Critically high 1.40-6.50 [facility] Comment on above: Performed By: #### U RCX #### [facility] [address] [place] [address] Dr. Caitlin Martinez SEG % 89.0 % Critically high 43.0-75.0 [facility] Comment on above: Performed By: #### U RCX #### [facility] [address] [address] [address] Caitlin Martinez WBC 12.2 103/ul Critically high 4.0-11.0 [facility] Comment on above: Performed By: #### U RCX #### [facility] [address] [place] [address] Dr. Caitlin Martinez ER URINE PROFILEon 2 Bilirubin Ql (U) Negative Normal NEGATIVE [facility] Comment on above: Performed By: #### C VDTBH #### [facility] [address] [place] [address] Dr. Caitlin Martinez Clarity (U) SL CLOUDY Abnormal CLEAR [facility] Comment on above: Performed By: #### C VDTBH #### [facility] [address] [place] [address] Dr. Caitlin Martinez Color (U) YELLOW Normal YELLOW [facility] Comment on above: Performed By: #### C VDTBH #### [facility] [address] [place] [address] Dr. Caitlin Martinez ERUAHNadine A micrscopic examination will be performed if indicated. Normal [facility] Comment on above: Performed By: #### C VDTBH #### [facility] [address] [place] [address] Dr. Caitlin Martinez Glucose Ql (U) Negative Normal NEGATIVE The [facility] Comment on above: Performed By: #### C VDTBH #### [facility] [address] [place] [address] Dr. Caitlin Martinez Hemoglobin Ql (U) Negative Normal NEGATIVE [facility] Comment on above: Performed By: #### C VDTBH #### [facility] [address] [place] [address] Dr. Caitlin Martinez Ketones Ql (U) >=80 Abnormal NEGATIVE The [facility] Comment on above: Performed By: #### C VDTBH #### [facility] [address] [place] [address] Dr. Caitlin Martinez LEUKOCYTES Negative Normal NEGATIVE [facility] Comment on above: Performed By: #### C VDTBH #### [facility] [address] [place] [address] Dr. Caitlin Martinez Nitrite Ql (U) Negative Normal NEGATIVE [facility] Comment on above: Performed By: #### C VDTBH #### [facility] [address] [place] [address] Dr. Caitlin Martinez pH (U) 6.0 [pH] Normal 5-9 [facility] Comment on above: Performed By: #### C VDTBH #### [facility] [address] [place] [address] Dr. Caitlin Martinez SPEC GRAVITY 1.020 Normal 1.005-<=1.025 [facility] Comment on above: Performed By: #### C VDTBH #### [facility] [address] [place] [address] Dr. Caitlin Martinez UA PROTEIN Negative Normal NEGATIVE/ TRACE [facility] Comment on above: Performed By: #### C VDTBH #### [facility] [address] [place] [address] Dr. Caitlin Martinez UR MICRO IND NOT INDICATED Normal [facility] Comment on above: Performed By: #### C VDTBH #### [facility] [address] [place] [address] Dr. Caitlin Martinez Urobilinogen Qn (U) 1.0 {Barbara'U}/dL Normal 0.2 - 1. 0 [facility] Comment on above: Performed By: #### C VDTBH #### [facility] [address] [place] [address] Dr. Caitlin Martinez INFLUENZA A AND B AGon 10-24 INFLUBNEG SEE BELOW Normal [facility] Comment on above: Result Comment: Nega tive for Flu B protein antigen. Infection due to Flu B cannot be ruled out. Flu B antigen in the sample may be below the detection limit of the test. Performed By: #### C VDTBH #### [facility] [address] [place] [address] Dr. Caitlin Martinez INFLUENZA A AG Positive Abnormal NEGATIVE SEE COMMENT [facility] Comment on above: Performed By: #### C VDTBH #### [facility] [address] [place] [address] Dr. Caitlin Martinez INFLUENZA B AG Negative Normal NEGATIVE SEE COMMENT [facility] Comment on above: Performed By: #### C VDTBH #### [facility] [address] [place] [address] Dr. Caitlin Martinez INFLUPOSH SEE BELOW Normal [facility] Comment on above: Result Comment: NOTE : Live attenuated influenzae vaccine viruses can cause a positive result for a rapid influenza diagnostic test if administered up to 7 days prior to rapid testing. Performed By: #### C VDTBH #### [facility] [address] [place] [address] Dr. Caitlin Martinez INTERNAL CONTROLS Within Normal Limits Normal Wi thin Normal Limits [facility] Comment on above: Performed By: #### C VDTBH #### [facility] [address] [place] [address] Dr. Caitlin Martinez PROF CHEM 8 (BAS METB)on Anion gap [Moles/Vol] 14.4 mmol/L Normal [facility] Comment on above: Performed By: #### D IRCMB, ABID #### [facility] [address] [place] [address] Dr. Caitlin Martinez Calcium [Mass/Vol] 8.4 mg/dL Critically low 8.5-10.1 [facility] Comment on above: Performed By: #### D IRCMRhina, ABID #### [facility] [address] [place] [address] Dr. Caitlin Martinez Chloride [Moles/Vol] 101 mmol/L Normal 98-107 [facility] Comment on above: Performed By: #### D IRCMB, ABID #### [facility] [address] [address] [address] Caitlin Martinez CO2 [Moles/Vol] 19.7 mmol/L Critically low 21.0-32.0 [facility] Comment on above: Performed By: #### D IRCMB, ABID #### [facility] [address] [address] [address] Caitlin Martinez Creatinine [Mass/Vol] 0.55 mg/dL Normal 0.55-1.02 [facility] Comment on above: Performed By: #### D IRCMB, ABID #### [facility] [address] [address] [address] Caitlin Martinez EGFR-AF MACANESE >60 Normal >=60 [facility] Comment on above: Performed By: #### D IRCMB, ABID #### [facility] [address] [place] [address] Dr. Caitlin Martinez EGFR-NON AF MACANESE >60 Normal >=60 [facility] Comment on above: Performed By: #### D IRCMB, ABID #### [facility] [address] [address] [address] Caitlin Martinez Glucose [Mass/Vol] 91 mg/dL Normal 74-106 [facility] Comment on above: Performed By: #### D IRCMB, ABID #### [facility] [address] [address] [address] Caitlin Martinez Potassium [Moles/Vol] 3.1 mmol/L Critically low 3.5-5.1 [facility] Comment on above: Performed By: #### D IRCMB, ABID #### [facility] [address] [address] [address] Caitlin Martinez Sodium [Moles/Vol] 132 mmol/L Critically low 136-145 [facility] Comment on above: Performed By: #### D IRCMB, ABID #### [facility] [address] [place], [place] [address] Dr. Caitlin Martinez Urea nitrogen [Mass/Vol] 7.0 mg/dL Normal 7.0-18.0 [facility] Comment on above: Performed By: #### D IRCMB, ABID #### [facility] [address] [place], [place] [address] Dr. Caitlin Martinez Urea nitrogen/Creatinine [Mass ratio] 12.7 mg/mg Normal [facility] Comment on above: Performed By: #### D IRCMB, ABID #### [facility] [address] [place], [place] [address] Dr. Caitlin Martinez US PREG ANATOMY SINGLEon [...] by: DAVID BLACKMON Date: 2021-09-28 09:17 Normal [facility] CHEMISTRYOrdered By: SYSTEM SYSTEM on 06-21-2021 [place] [address] m[IU]/mL High 1 - 3 mIU/mL [facility] Remisol XR LUMBAR SPINE 2-3 VIEWS (S [...] gas pattern is nonobstructive. There is a iqiykljd-ce-rldkj amount of stool burden. IMPRESSION: No malalignment. No acute compression deformity. Htvxcnuf-yh-pypbg amount of stool burden. [employer] Workstation ID: [id number] Dictated by: LUBA GARCÍA on [facility] Mar 05, 2020 4:09:51 PM EDT Transcribed by: KELVIN GUADALUPE on [facility] Mar 05, 2020 4:17:18 PM EDT Finalized by: LUBA GARCÍA on [facility] Mar 05, 2020 7:52:11 PM EDT Normal [facility] Comment on above: Order Comment: Injur y/Trauma or Illness?:Illness/Other How long have you had these symptoms (acute/chronic)?:Chronic Reason for exam?:low back pain History of cancer?:n Surgeries, chemotherapy, or radiation?:n Type of Exam?:Initial Additional signs and symptoms?:fibromyalgia XR Lumbar Spine 2-3 Views (S tandard)on 03-05-2020 No malalignment. No acute compression deformity. Fxhjphen-cg-bzpod amount of stool burden. [employer] Workstation ID: [id number] [facility] EXAMINATION: XR LUMBAR SPINE 2-3 VIEWS [...] gas pattern is nonobstructive. There is a tfdltghj-np-tbkze amount of stool burden. [facility] Interface, Rad In Jose Luis Speechq - 03/05/2020 7:55 PM EDT EXAMINATION: [...] gas pattern is nonobstructive. There is a lldlhghr-gb-iletq amount of stool burden. IMPRESSION: No malalignment. No acute compression deformity. Azesaqut-xz-cthnk amount of stool burden. [employer] Workstation ID: [id number] [facility] CNOVon 10-28-2018 CNOV Office Visit (VASSMN ) SANDY GODINEZ ([id number]) 1995 F Date Time Provider Department 10/28/18 [...] CARE PHYSICIAN: Farrah Garcia MD REFERRING PROVIDER: aFrrah Garcia MD [address] [id number] Consult requested for an opinion regarding the [...] TIME: 12:44 PM Referring Provider: FARRAH GARCIA [[id number]] Allergies As of Date: 10/28/2018 (No Known [...] by WARREN RODRIGUEZ MD on 10/29/18 Normal [facility] PROGRESSon 10-28-2018 Protein mass conc HNO ID: [id number] Author: Warren Rodriguez Service: ? Author Type: Physician Type: Progress Notes Filed: 10/29/2018 3:03 PM Note Text: VASCULAR SURGERY INITIAL CONSULT SERVICE DATE: 10/28/2018 SERVICE TIME: 12:44 PM PRIMARY CARE PHYSICIAN: Farrah Garcia MD REFERRING PROVIDER: Farrah Garcia MD [address] [id number] Consult requested for an opinion regarding the [...] October 28, 2018 TIME: 12:44 PM Normal [facility] Vital Signs Date Time Vital Sign Value Performing Clinician Faci lity 07-19-2023 09:31-0500 Body mass index (BMI) [Ratio] 26.79 kg/m2 [facility] Nurse [facility] 07-19-2023 09:31-0500 Body weight 73.03 kg [facility] 07-19-2023 [id number] Diastolic blood pressure 72 mm[Hg] [facility] 07-19-2023 [id number] Systolic blood pressure 118 mm[Hg] [facility] Encounters Encounter Date Encounter Type Care Provider Facility Start: 08-19-2023 End: 08-19-2023 ambulatory JOSE MIGUEL JUSTEN Not Available Start: 07-25-2023 Clinisync Result Encounter Jose Miguel [...] Not Available Start: 05-02-2023 ambulatory Royer Layne acility:[facility] Start: 07-30-2022 End: 07-31-2022 ambulatory DUARTE VALDERRAMA [...] Facility:[facility] Start: 11-23-2021 End: 11-23-[address] LORENZANA MISC Facility:[facility] Start: 11-06-2021 End: 11-07-[address] LORENZANA MISC Facility:[facility] Start: 10-29-2021 End: 10-29-2021 ambulatory DOCTOR MISC Facility:[facility] Start: 10-26-2021 End: 10-26-[address] LORENZANA MISC Facility:[facility] Start: 10-26-2021 End: 10-27-[address] LORENZANA MISC Facility:[facility] Start: 10-24-2021 End: 10-24-[address] LORENZANA MISC Facility:[facility] Start: 09-28-2021 End: 09-29-[address] JOSE MIGUEL CAMPUZANO Facility:[facility] Start: 09-16-2021 End: 09-16-2021 ambulatory ILIR JUAREZ Facility:[facility] Start: 06-21-2021 End: 09-19-2021 Recurring Jose Miguel CAMPUZANO [facility] Start: 03-05-2020 End: 03-06-2020 Patient encounter procedure [facility] Start: 03-05-2020 End: 03-05-2020 [facility] Work Phone: [facility] Comment on above: Chronic [...] encounter procedure 08/19/2023 11:10 AM EST Routine [facility] [address] [place] [id number] Jose Miguel Campuzano, DO [address] [place] [address] [facility] Start: 07-19-2023 End: 07-19-2024 ABO/Rh ABO/Rh Lab Routine Missed menses Expected: 07/19/2023 (Approximate), Expires: 07/19/2024 [facility] Comment on above: Expected: 07/19/2023 (Approximate), Expires: 07/19/2024 Start: 07-19-2023 End: 07-19-2024 Blood type and Indirect antibody screen panel - Blood Type and screen Lab Routine Missed menses Expected: 07/19/2023 (Approximate), Expires: 07/19/2024 [facility] Work Phone: Comment on above: Expected: 07/19/2023 (Approximate), Expires: 07/19/2024 Start: 07-19-2023 End: 07-19-2024 US Pelvis transvaginal US OB transvaginal Imaging Routine Missed menses Expected: 07/19/2023 (Approximate), Expires: 07/19/2024 [facility] Comment on above: Expected: 07/19/2023 (Approximate), Expires: 07/19/2024 Start: 02-16-2020 Influenza vaccinatio n given Sequential Influenza Vaccine (#1) [facility] Start: 2014 Hepatitis C antibody , confirmatory test Hepatitis C Screening [facility] Start: 08-31-2011 HIV screening HIV Screening [facility] Start: 08-31-2007 Vaccination for [place] papillomavirus HPV Vaccines (1 - 2-dose series) [facility] Start: 08-31-1999 History and physical examination, annual for health maintenance Wellness Visit [facility] Start: 1995 Screening for Chlamy tristan trachomatis Chlamydia Screening [facility] Start: 1996 Screening for malign ant neoplasm of cervix Pap Smear [facility] Start: 1996 Tetanus vaccination Tetanus: Every 1 0yrs [facility] Bacteria identified in Urine by Culture Urine culture Microbiology Routine Missed menses Ordered: 07/19/2023 [facility] Comment on above: Ordered: 07/19/2023 CBC W Auto Different ial panel - Blood CBC and differential Lab Routine Missed menses Ordered: 07/19/2023 [facility] Comment on above: Ordered: 07/19/2023 Hemoglobin A1c measurement Hemoglobin A1c Lab Routine Missed menses Ordered: 07/19/2023 [facility] Comment on above: Ordered: 07/19/2023 Hepatitis B virus knight rface Ag [Presence] in Serum or Plasma by Immunoassay Hepatitis B surface antigen Lab Routine Missed menses Ordered: 07/19/2023 [facility] Comment on above: Ordered: 07/19/2023 Hepatitis C virus Ab [Presence] in Serum or Plasma by Immunoassay Hepatitis C antibody Lab Routine Missed menses Ordered: 07/19/2023 [facility] Comment on above: Ordered: 07/19/2023 HIV-1/HIV-2 antigen/antibody combination immunoassay HIV-1 and HIV-2 antibodies Lab Routine Missed menses Ordered: 07/19/2023 [facility] Comment on above: Ordered: 07/19/2023 Reagin Ab [Presence] in Serum by RPR RPR Lab Routine Missed menses Ordered: 07/19/2023 [facility] Comment on above: Ordered: 07/19/2023 Rubella antibody, IgG Rubella an tibody, IgG Lab Routine Missed menses Ordered: 07/19/2023 [facility] Comment on above: Ordered: 07/19/2023 Payers Date Payer Category Payer Self-pay 2022 Medicaid [employer] [place] [id number] 2022-Present [address] [place] [address] [id number] 1995 Unknown [id number] 2.16.840.1.395308.3.579.2.903 1995 Unknown [id number] 2.16.840.1.788323.3.579.2.593 1996 Unknown [id number] 2.16.840.1.861903.3.579.2.593 1996 Unknown [id number] 2.16.840.1.628434.3.579.2.593 1996 Unknown [id number] 2.16.840.1.693102.3.579.2.593 1996 Unknown [id number] 2.16.840.1.971581.3.579.2.593 1996 Unknown [id number] 2.16.840.1.550934.3.579.2.593 1996 Unknown [id number] 2.16.840.1.413172.3.579.2.593 1996 Unknown [id number] 2.16.840.1.673228.3.579.2.593 1996 Unknown [id number] 2.16.840.1.024535.3.579.2.593 1996 Unknown [id number] 2.16.840.1.508024.3.579.2.593 1996 Unknown [id number] 2.16.840.1.759685.3.579.2.593 1996 Unknown [id number] 2.16.840.1.080240.3.579.2.593 1996 Unknown [id number] 2.16.840.1.369918.3.579.2.593 1996 Unknown [id number] 2.16.840.1.449332.3.579.2.593 1996 Unknown [id number] 2.16.840.1.780548.3.579.2.593 1996 Unknown [id number] 2.16.840.1.087760.3.579.2.593 1996 Unknown [id number] 2.16.840.1.817606.3.579.2.593 1996 Unknown [id number] 2.16.840.1.169023.3.579.2.593 1996 Unknown [id number] 2.16.840.1.540559.3.579.2.593 1996 Unknown [id number] 2.16.840.1.991536.3.579.2.593 1996 Unknown [id number] 2.16.840.1.443538.3.579.2.593 1996 Unknown [id number] 2.16.840.1.521761.3.579.2.1259 1996 Unknown [id number] 2.16.840.1.587085.3.579.2.1259 1996 Unknown [id number] 2.16.840.1.072519.3.579.2.1259 1959 Unknown [id number] 1959 Unknown [id number] Unknown COMMERCIAL COMME RCIAL MISCELLANEOUS [id number] Effective for all dates [id number] 1.2.840.714863.1.13.385.2.7.3. 284140.315 Unknown [id number] Unknown [id number] 2.16.840.1.777205.3.579.2.531 Social History Date Type Detail Facility Tobacco smoking stat us NHIS Unknown if ever smoked [facility] Sex Assigned At Not on file [facility] Start: 12-07-2022 Sex Assigned At Female Hussain Ngo [facility] Start: 12-07-2022 Tobacco smoking status NHIS Never smoked tobacco [facility] Start: 07-19-2023 Alcohol intake Current drinker of alcohol (finding) [facility] Start: 12-07-2022 History of Social function [facility] Start: 12-07-2022 Alcohol Comment 1-2 drinks less than monthly in the past year [facility] Start: 05-31-2023 [facility] Start: 1995 Sex Assigned At Female [facility] Start: 11-29-2022 Gender identity Identifies as female gender (finding) [facility] Start: 11-29-2022 Sexual orientation Heterosexual (finding) [facility] History of Present illness Narrative 07-19-2023 [...] Procedure Laterality Date DILATION AND CURETTAGE 2018 DE TONSILLECTOMY & ADENOIDECTOMY AGE 12/2014 WISDOM TOOTH EXTRACTION Allergies Allergen Reactions Wound [...] sent for nausea to pharmacy. Pt desires [place] [facility] and understands to have it done at 10 weeks along w/her labs. Follow Up: Patient is to have labs drawn at directed and return to office for initial OB appointment with provider. Patient may call office as needed with any concerns or questions. Nurse Visit Completed by: Cori Daniel MA documented in this encounter [facility] Clinical Note 01-16-2022 Note Date & [...] by: Cecelia FOOTE Date: 2022-01-16 21:33 [facility] Clinical Note 01-16-2022 Note Date & [...] by: Cecelia FOOTE Date: 2022-01-16 21:33 [facility] Clinical Note 01-15-2022 Note Date & [...] by: IGOR DIAZ Date: 2022-01-15 10:10 [facility] Evaluation + Plan note Note Date & Type Note Facility Evaluation + Plan note No data available for this section [facility] Evaluation note Note Date & Type Note Facility Evaluation note Diagnosis Missed menses Nausea Nausea alone documented in this encounter [facility] Hospital Discharge instructions Note Date & Type Note Facility Hospital Discharge instructions No data available for this section [facility] Summary Purpose Family History No Family History Records FoundNo Family History Records FoundNo Family History Records FoundNo Family History Records FoundNo Family History Records FoundNo Family History Records Found Advance Directives No Advanced Directives Records FoundDocuments on File Type Date Recorded Patient [employer] Expl anation Advance Directives and Rita torres Will 03/05/2020 2:18 PM Assessments Diagnosis Chronic low back pain, unspecified back pain laterality, unspecified whether sciatica present Additional Source Comments INFORMATION SOURCE (unrecogn ized section and content) DATE CREATED AUTHOR 11/08/2018 [facility] DATE CREATED AUTHOR AUTHOR'S ORGANIZ ATION 03/21/2020 [facility] DATE CREATED AUTHOR AUTHOR'S ORGANIZ ATION 08/04/2022 [facility] DATE CREATED AUTHOR AUTHOR'S ORGANIZ ATION 09/06/2022 Hussain Matt [facility] DATE CREATED AUTHOR AUTHOR'S ORGANIZ ATION 07/13/2023 [facility] DATE CREATED AUTHOR AUTHOR'S ORGANIZ ATION 08/19/2023 [facility] EPIC Reason for Visit [...] BE BASED ON THE PRIMARY CLINICAL RECORDS. [employer] provides no warranty or guarantee of the accuracy or completeness of information in this document.
[2023-09-23 12:09] LABS: Age Gdln ACOG Testing Note (.); IGP, rfx Aptima HPV ASCU Note (.)
== END 2023-09-17 20:22 | disposition home or self-care (01) ==
LOC: LAB 20:21
PROVIDERS: PCP Nurse Practitioner Family; Visit Provider Physician Assistant
DX: Z01.419 Encounter for gynecological examination (general) (routine) without abnormal findings (principal)
CPT/HCPCS: G0145

== ENCOUNTER 2023-10-15 08:29 | Outpatient (OUT) | payer OTHER, SELFPAY ==
--- NOTE | 2023-10-15 08:31 | US_ITS ---
[address] [address] Patient Name: SANDY GODINEZ MRN: [id number] date: 1995 Sex: F Assigned Patient Location: [facility] Current Patient Location: [facility] Accession/Order Number: [id number] Exam Date: 10/15/2023 08:32 Report Date: 10/15/2023 09:56 At the request of: JOSE MIGUEL BOATENG Procedure: US OB anatomy EXAMINATION: US OB cervical length, US OB anatomy HISTORY: CERVICAL LENGTH COMPARISON: No relevant comparison available. TECHNIQUE: Transabdominal sonographic examination was performed for obstetrical and evaluation. FINDINGS: Number: 1 Heart Rate: 145.0 bpm Amniotic Fluid Volume: Subjectively normal position: Cephalic presentation, longitudinal lie Placental Location: ANTERIOR, the placental edge is 7.0 cm from the internal os Cervix Length: 4.4 cm , closed Normal anatomy: Lateral ventricles, cerebellum, posterior fossa, nose, lips, orbits, four-chamber heart, RVOT, LVOT, diaphragm, stomach, kidneys, abdominal cord insertion, bladder, umbilical arteries, spine, extremities Abnormal anatomy: Two-vessel cord BIOMETRY: BPD: 5.1 cm 21 weeks 3 days , 39% HC: 18.8 cm 21 weeks 1 days, 21% AC: 15.8 cm 20 weeks 6 days, 23% FL: 3.5 cm 21 weeks 1 days , 25% EFW:394.3 grams; 14 ounces, 20% FL/AC: 22.3 FL/BPD: 69.4 HC/AC: 1.2 GESTATIONAL AGE: Age by EDC: 21 weeks 4 days NOVA by EDC: 02/21/2024 Age by current US: 21 weeks 1 days NOVA by current US: 02/24/2024 US/US OB anatomy IMPRESSION: 2 vessel umbilical cord Otherwise normal anatomy scan Closed cervix measuring 4.4 cm in length *Reference: [employer] Practice Guideline for the performance of Obstetric Ultrasound Examinations, March 17, 2007. Electronically authenticated by: KIRK OATES Date: 10/15/2023 09:56
--- NOTE | 2023-10-15 08:31 | US_ITS ---
[address] [address] Patient Name: SANDY GODINEZ MRN: [id number] date: 1995 Sex: F Assigned Patient Location: [facility] Current Patient Location: [facility] Accession/Order Number: [id number] Exam Date: 10/15/2023 08:32 Report Date: 10/15/2023 09:56 At the request of: JOSE MIGUEL BOATENG Procedure: US OB cervical length EXAMINATION: US OB cervical length, US OB anatomy HISTORY: CERVICAL LENGTH COMPARISON: No relevant comparison available. TECHNIQUE: Transabdominal sonographic examination was performed for obstetrical and evaluation. FINDINGS: Number: 1 Heart Rate: 145.0 bpm Amniotic Fluid Volume: Subjectively normal position: Cephalic presentation, longitudinal lie Placental Location: ANTERIOR, the placental edge is 7.0 cm from the internal os Cervix Length: 4.4 cm , closed Normal anatomy: Lateral ventricles, cerebellum, posterior fossa, nose, lips, orbits, four-chamber heart, RVOT, LVOT, diaphragm, stomach, kidneys, abdominal cord insertion, bladder, umbilical arteries, spine, extremities Abnormal anatomy: Two-vessel cord BIOMETRY: BPD: 5.1 cm 21 weeks 3 days , 39% HC: 18.8 cm 21 weeks 1 days, 21% AC: 15.8 cm 20 weeks 6 days, 23% FL: 3.5 cm 21 weeks 1 days , 25% EFW:394.3 grams; 14 ounces, 20% FL/AC: 22.3 FL/BPD: 69.4 HC/AC: 1.2 GESTATIONAL AGE: Age by EDC: 21 weeks 4 days NOVA by EDC: 02/21/2024 Age by current US: 21 weeks 1 days NOVA by current US: 02/24/2024 US/US OB cervical length IMPRESSION: 2 vessel umbilical cord Otherwise normal anatomy scan Closed cervix measuring 4.4 cm in length *Reference: [employer] Practice Guideline for the performance of Obstetric Ultrasound Examinations, March 17, 2007. Electronically authenticated by: KIRK OATES Date: 10/15/2023 09:56
== END 2023-10-15 08:30 | disposition home or self-care (01) ==
LOC: NOMS 08:29
PROVIDERS: PCP Nurse Practitioner Family; Visit Provider Obstetrics & Gynecology
DX: Z36.89 Encounter for other specified antenatal screening (principal); Z3A.21 21 weeks gestation of pregnancy
CPT/HCPCS: 76805; 76817

== ENCOUNTER 2023-11-03 19:44 | Observation (INO) | payer OTHER, SELFPAY ==
--- OUTSIDE RECORDS SUMMARY | 2023-11-03 19:49 | XMS_ITS | CCD ---
Author Organization [facility] Care Team Providers Care Cash Applications Coordinator Name Role Phone Farrah Garcia Primary Care Provider [phone] VIBHA JOHNSON Attending Unavailable VIBHA JOHNSON Referring Unavailable FARRAH GARCIA Primary Care Unavailable Kelli Oliver Primary Care Physician MISC, DR LORENZANA Primary Care Unavailable MANOJ CUNNINGHAM Consulting Unavailable MANOJ CUNNINGHAM Admitting Unavailable MANOJ CUNNINGHAM Attending Unavailable ILIR JUAREZ Consulting Unavailable JUSTEN, DR GILLESPIE Attending Unavailable JUSTEN, DR GILLESPIE Admitting Unavailable KARASIK, DR MIMS Consulting Unavailable REQUEST, DR NONE LISTED Primary Care Unavaila ble JUSTEN, DR GILLESPIE Consulting Unavailable JUSTEN, DR GILLESPIE Procedure Practitioner Unavailab KRISTINA Keller Attending Unavailable KRISTINA VELEZ Consulting Unavailable KRISTINA VELEZ Admitting Unavailable MISC, DR LORENZANA Primary Care Unavailable DAMIAN, DR LYLA Sanchez Consulting Unavailable DAMIAN, DR LYLA Sanchez Admitting Unavailable DAMIAN, DR LYLA Sanchez Attending Unavailable REQUEST, DR NONE LISTED Primary Care UnavailGagandeep Faustin Consulting Unavailable JUSTEN, DR GILLESPIE Consulting Unavailable MISC, DR LORENZANA Primary Care Unavailable JUSTEN, DR GILLESPIE Attending Unavailable JUSTEN, DR GILLESPIE Admitting Unavailable MISC, DR LORENZANA Primary Care Unavailable KRISTINA VELEZ Attending Unavailable KRISTINA VELEZ Consulting Unavailable KRISTINA VELEZ Admitting Unavailable KARASIK, DR MIMS Attending Unavailable KARBELIA, DR MIMS Consulting Unavailable YAMILEX, DR MIMS Admitting Unavailable MISC, DR LORENZANA Primary Care Unavailable JUSTEN, DR GILLESPIE Consulting Unavailable ZIEBER, DR DAVID Sanchez Consulting Unavailable NILL, DR GARLAND Consulting Unavailable IGOR DIAZ Consulting Unavailable LUISITO FOOTE Consulting Unavailable JUSTEN, DR GILLESPIE Consulting Unavailable [...] Unavailable MISC, DR LORENZANA Primary Care Unavailable JUSTNE, DR GILLESPIE Consulting Unavailable JUSTEN, DR GILLESPIE Admitting Unavailable JUSTEN, DR GILLESPIE Attending Unavailable ZIEBER, DR DAVID Sanchez Consulting Unavailable JUSTEN, DR GILLESPIE Consulting Unavailable JUSTEN, DR GILLESPIE Admitting Unavailable JUSTEN, DR GILLESPIE Attending Unavailable MISC, DR LORENZANA Primary Care Unavailable ILIR JUAREZ Consulting Unavailable ANN, ILIR Admitting Unavailable ANN, ILIR Attending Unavailable FARRAH GARCIA Primary Care Unavailable LAVELLE, DUARTE Consulting Unavailable LAVELLE, DUARTE Primary Care Unavailable LAVELLE, DUARTE Admitting Unavailable LAVELLE, DUARTE Attending Unavailable JUSTEN, DR GILLESPIE Consulting Unavailable JUSTEN, DR GILLESPIE Admitting Unavailable JUSTEN, DR GILLESPIE Attending Unavailable REQUEST, DR NONE LISTED Primary Care Unavaila ble ZIEBER, DR DAVID Sanchez Consulting Unavailable JUSTEN, DR GILLESPIE Attending Unavailable STOW, DR KIRK Johnson Consulting Unavailable JUSTEN, DR GILLESPIE Admitting Unavailable MISC, DR LORENZANA Primary Care Unavailable JUSTEN, DR GILLESPIE Consulting Unavailable Unavailable Primary Care Provider UnavailRoyer Thompson Attending Unavailab Royer Watts Admitting Unavailab [facility] Primary Care Unavailable JOSE MIGUEL CAMPUZANO Attending Unavailable JOSE MIGUEL CAMPUZANO Attending Unavailable MICHAEL CHAN Attending Unavailable JOSE MIGUEL CAMPUZANO Attending Unavailable Allergies Allergy Classification Reported Allergen(s) Allergy Type Date of Onset Reaction(s) Facility (1 source) Desonide Drug Allergy 9 [facility] Repository (2 sources) Wound Dressing Adhesive [...] 02-15-2022 Episodic Other aftercare (1 source) Other long-term (current) 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; 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: [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] Onset: 02-05-2022 Episodic Other [...] WITH AUTO DIFFon BASOPHILS ABSOLUTE AUTO 0.1 [facility] Basophils/100 WBC (Bld) 0.7 % 0.2 - 2.0 % [facility] Eosinophils/100 WBC (Bld) 2.6 % 0.9 - 7.0 % [facility] Erythrocyte distribution width (RBC) [Ratio] 13.4 % 11.0 - 15.0 % [facility] Hematocrit (Bld) [Volume fraction] 39.0 % 36.0 - 48.0 % [facility] Hemoglobin (Bld) [Mass/Vol] 12.8 g/dL 12.0 - 16.0 g/dL [facility] IMMATURE GRANULOCYTES ABS AUTO 0.01 [facility] Immature granulocytes/100 WBC (Bld) 0.1 % 0.0 - 0.5 % [facility] LYMPHOCYTES ABSOLUTE AUTO 2.2 [facility] Lymphocytes/100 WBC (Bld) 26.1 % 20.5 - 60.0 % [facility] MCH (RBC) [Entitic mass] 28.6 pg 26.7 - 34.0 pg [facility] MCHC (RBC) [Mass/Vol] 32.8 g/dL 29.9 - 35.2 g/dL [facility] MCV (RBC) [Entitic vol] 87.2 fL 81.0 - 99.0 fL [facility] MONOCYTES ABSOLUTE AUTO 0.5 [facility] Monocytes/100 WBC (Bld) 5.7 % 1.7 - 12.0 % [facility] NEUTROPHILS ABSOLUTE AUTO 5.5 [facility] Neutrophils/100 WBC (Bld) 64.8 % 43.0 - 75.0 % [facility] Platelet mean volume (Bld) [Entitic vol] 10.1 fL 9.5 - 13.5 [facility]L [facility]2 [facility] PLT 340 [facility] RBC 4.47 [facility] WBC 8.4 [facility] HCG ( test) Ql (U)o n 07-19-2023 Interpretation and review of laboratory results Abnormal [facility] Preg Test, Ur Positive [facility] Urinalysis macro (dipstick) panel (U)on 07-19-2023 Bilirubin, UA Negative Negative - 4(70) +++ mg/dL [facility] Blood, UA Positive Negative - 50 Anselmo/mcL [facility] Comment on above: moderate Clarity, UA Clear [facility] Color, UA [place] [facility] Glucose, UA Negative Negative - 2000(110) ++++ mg/dL [facility] Interpretation and review of laboratory results Abnormal [facility] Ketones, UA Positive Negative - 160(16) ++++ mg/dL [facility] Comment on above: trace Leukocytes, UA Positive Negative - 500+++ Monik/mcL [facility] Comment on above: small Nitrite, UA Negative Negative - Positive [facility] pH, UA 6.0 5 - 9 [facility] Protein, UA Positive Negative - 2000(20) ++++ mg/dL [facility] Comment on above: 30 Spec Grav, UA 1.030 1 - 1.03 [facility] Urobilinogen, UA 1.0 0.2 - 12 mg/dL [facility] In office Testingon 09-07-19 23 In office Testing [id number] 1.00CD:127 Normal [facility] CBC AUTO DIFFon 07-30-2022 BASO # 0.1 103/ul Normal 0.0-0.1 [facility] Comment on above: Performed By: #### U RCX #### [facility] [address] [place] [address] Dr. Caitlin Martinez Basophils/100 WBC (Bld) 1.1 % Normal 0.2-2.0 [facility] Comment on above: Performed By: #### U RCX #### [facility] [address] [place] [address] Dr. Caitlin Martinez EO # 0.3 103/ul Normal 0.0-0.7 [facility] Comment on above: Performed By: #### U RCX #### [facility] [address] [place] [address] Dr. Caitlin Martinez Eosinophils/100 WBC (Bld) 4.7 % Normal 0.9-7.0 [facility] Comment on above: Performed By: #### U RCX #### [facility] [address] [place] [address] Dr. Caitlin Martinez Erythrocyte distribution width (RBC) [Ratio] 14.7 % Normal 11.0-15.0 [facility] Comment on above: Performed By: #### U RCX #### [facility] [address] [place] [address] Dr. Caitlin Martinez Hematocrit (Bld) [Volume fraction] 39.3 % Normal 36.0-48.0 [facility] Comment on above: Performed By: #### U RCX #### [facility] [address] [place] [address] Dr. Caitlin Martinez Hemoglobin (Bld) [Mass/Vol] 12.7 g/dL Normal 12.0-16.0 [facility] Comment on above: Performed By: #### U RCX #### [facility] [address] [place] [address] Dr. Caitlin Martinez IG # 0.02 10e3/ul Normal 0.00-0.03 [facility] Comment on above: Performed By: #### U RCX #### [facility] [address] [place] [address] Dr. Caitlin Martinez IG % 0.3 % Normal 0.0-0.5 [facility] Comment on above: Performed By: #### U RCX #### [facility] [address] [place] [address] Dr. Caitlin Martinez LYMPH # 2.5 103/ul Normal 1.2-3.8 [facility] Comment on above: Performed By: #### U RCX #### [facility] [address] [place] [address] Dr. Caitlin Martinez Lymphocytes/100 WBC (Bld) 34.5 % Normal 20.5-60.0 [facility] Comment on above: Performed By: #### U RCX #### [facility] [address] [place] [address] Dr. Caitlin Martinez MANUAL DIFF REQ NO Normal [facility] Comment on above: Performed By: #### U RCX #### [facility] [address] [place] [address] Dr. Caitlin Martinez MCH (RBC) [Entitic mass] 27.3 pg Normal 26.7-34.0 [facility] Comment on above: Performed By: #### U RCX #### [facility] [address] [place] [address] Dr. Caitlin Martinez MCHC (RBC) [Mass/Vol] 32.3 g/dL Normal 29.9-35.2 [facility] Comment on above: Performed By: #### U RCX #### [facility] [address] [address] [address] Caitlin Martinez MCV (RBC) [Entitic vol] 84.5 fL Normal 81.0-99.0 [facility] Comment on above: Performed By: #### U RCX #### [facility] [address] [place] [address] Dr. Caitlin Martinez MONO # 0.5 103/ul Normal 0.3-0.8 [facility] Comment on above: Performed By: #### U RCX #### [facility] [address] [place] [address] Dr. Caitlin Martinez Monocytes/100 WBC (Bld) 7.3 % Normal 1.7-12.0 [facility] Comment on above: Performed By: #### U RCX #### [facility] [address] [place] [address] Dr. Caitlin Martinez NEUT # 3.8 103/ul Normal 1.4-6.5 [facility] Comment on above: Performed By: #### U RCX #### [facility] [address] [place] [address] Dr. Caitlin Martinez Neutrophils/100 WBC (Bld) 52.1 % Normal 43.0-75.0 [facility] Comment on above: Performed By: #### U RCX #### [facility] [address] [place] [address] Dr. Caitlin Martinez Platelet mean volume (Bld) [Entitic vol] 9.0 fL Critically low 9.5-13.5 [facility] Comment on above: Performed By: #### U RCX #### [facility] [address] [place] [address] Dr. Caitlin Martinez PLT 368 103/ul Normal 150-450 [facility] Comment on above: Performed By: #### U RCX #### [facility] [address] [place] [address] Dr. Caitlin Martinez RBC 4.65 106/ul Normal 4.20-5.40 [facility] Comment on above: Performed By: #### U RCX #### [facility] [address] [address] [address] Caitlin Martinez WBC 7.2 103/ul Normal 4.0-11.0 [facility] Comment on above: Performed By: #### U RCX #### [facility] [address] [place] [address] Dr. Caitlin Martinez IRONon 07-30-2022 Iron [Mass/Vol] 43.0 ug/dL Critically low 50.0-170.0 [facility] Comment on above: Performed By: #### U RCX #### [facility] [address] [place] [address] Dr. Caitlin Martinez PAP ACOG PANEL 2: 21 to 30on 07-30-2022 . . Normal [facility] Comment on above: Performed By: #### U RCX #### [facility] [address] [place] [address] Dr. Caitlin Martinez Age Gdln ACOG Testing - [facility] Comment on above: Performed By: #### U RCX #### [facility] [address] [place] [address] Dr. Caitlin Martinez DIAGNOSIS: Comment Normal [facility] Comment on above: Result Comment: NEGA TIVE FOR INTRAEPITHELIAL LESION OR MALIGNANCY. Performed By: #### U RCX #### [facility] [address] [place] [address] Dr. Caitlin Martinez Methodology: Comment Normal [facility] Comment on above: Result Comment: This liquid based ThinPrep(R) pap test was screened with the use of an image guided system. Performed By: #### U RCX #### [facility] [address] [place] [address] Dr. Caitlin Martinez Note: Comment Normal [facility] Comment on above: Result Comment: The Pap smear is a screening test designed to aid in the detection of premalignant and malignant conditions of the uterine cervix. It is not a diagnostic procedure and should not be used as the sole means of detecting cervical cancer. Both false-positive and false-negative reports do occur. . Performed By: #### U RCX #### [facility] [address] [place] [address] Dr. Caitlin Martinez Performed by: Comment Normal [facility] Comment on above: Result Comment: Bhavna Cormier, Wagon Driver Salesperson (ASCP) Performed By: #### U RCX #### [facility] [address] [place] [address] Dr. Caitlin Martinez Reflex Criteria: Comment Normal [facility] Comment on above: Result Comment: The HPV DNA reflex criteria were not met with this specimen result therefore, no HPV testing was performed. . Performed By: #### U RCX #### [facility] [address] [place] [address] Dr. Caitlin Martinez Specimen adequacy: Comment Normal [facility] Comment on above: Result Comment: Sati sfactory for evaluation. Endocervical and/or squamous metaplastic cells (endocervical component) are present. Performed By: #### U RCX #### [facility] [address] [place] [address] Dr. Caitlin Martinez INSULINon 04-19-2022 Insulin 9.1 uIU/mL Normal 2.6-24.9 [facility] Comment on above: Performed By: #### I HORACIO #### [facility] [address] [place] [address] Dr. Caitlin Martinez CBC AUTO DIFFon 04-18-2022 BASO # 0.1 103/ul Normal 0.0-0.1 [facility] Comment on above: Performed By: #### U RCX #### [facility] [address] [place] [address] Dr. Caitlin Martinez Basophils/100 WBC (Bld) 1.0 % Normal 0.2-2.0 [facility] Comment on above: Performed By: #### U RCX #### [facility] [address] [place] [address] Dr. Caitlin Martinez EO # 0.3 103/ul Normal 0.0-0.7 [facility] Comment on above: Performed By: #### U RCX #### [facility] [address] [address] [address] Caitlin Martinez Eosinophils/100 WBC (Bld) 4.1 % Normal 0.9-7.0 [facility] Comment on above: Performed By: #### U RCX #### [facility] [address] [address] [address] Caitlin Martinez Erythrocyte distribution width (RBC) [Ratio] 16.0 % Critically high 11.0-15.0 [facility] Comment on above: Performed By: #### U RCX #### [facility] [address] [place] [address] Dr. Caitlin Martinez Hematocrit (Bld) [Volume fraction] 35.7 % Critically low 36.0-48.0 [facility] Comment on above: Performed By: #### U RCX #### [facility] [address] [place] [address] Dr. Caitlin Martinez Hemoglobin (Bld) [Mass/Vol] 10.9 g/dL Critically low 12.0-16.0 [facility] Comment on above: Performed By: #### U RCX #### [facility] [address] [place] [address] Dr. Caitlin Martinez IG # 0.07 10e3/ul Critically high 0.00-0.03 [facility] Comment on above: Performed By: #### U RCX #### [facility] [address] [place] [address] Dr. Caitlin Martinez IG % 1.0 % Critically high 0.0-0.5 [facility] Comment on above: Performed By: #### U RCX #### [facility] [address] [place] [address] Dr. Caitlin Martinez LYMPH # 2.3 103/ul Normal 1.2-3.8 [facility] Comment on above: Performed By: #### U RCX #### [facility] [address] [place] [address] Dr. Caitlin Martinez Lymphocytes/100 WBC (Bld) 31.4 % Normal 20.5-60.0 [facility] Comment on above: Performed By: #### U RCX #### [facility] [address] [place] [address] Dr. Caitlin Martinez MANUAL DIFF REQ NO Normal [facility] Comment on above: Performed By: #### U RCX #### [facility] [address] [place] [address] Dr. Caitlin Martinez MCH (RBC) [Entitic mass] 24.8 pg Critically low 26.7-34.0 [facility] Comment on above: Performed By: #### U RCX #### [facility] [address] [place] [address] Dr. Caitlin Martinez MCHC (RBC) [Mass/Vol] 30.5 g/dL Normal 29.9-35.2 [facility] Comment on above: Performed By: #### U RCX #### [facility] [address] [place] [address] Dr. Caitlin Martinez MCV (RBC) [Entitic vol] 81.1 fL Normal 81.0-99.0 [facility] Comment on above: Performed By: #### U RCX #### [facility] [address] [place] [address] Dr. Caitlin Martinez MONO # 0.5 103/ul Normal 0.3-0.8 [facility] Comment on above: Performed By: #### U RCX #### [facility] [address] [place] [address] Dr. Caitlin Martinez Monocytes/100 WBC (Bld) 6.6 % Normal 1.7-12.0 [facility] Comment on above: Performed By: #### U RCX #### [facility] [address] [place] [address] Dr. Caitlin Martinez NEUT # 4.1 103/ul Normal 1.4-6.5 [facility] Comment on above: Performed By: #### U RCX #### [facility] [address] [place] [address] Dr. Caitlin Martinez Neutrophils/100 WBC (Bld) 55.9 % Normal 43.0-75.0 [facility] Comment on above: Performed By: #### U RCX #### [facility] [address] [address] [address] Caitlin Martinez Platelet mean volume (Bld) [Entitic vol] 9.4 fL Critically low 9.5-13.5 [facility] Comment on above: Performed By: #### U RCX #### [facility] [address] [address] [address] Caitlin Martinez PLT 369 103/ul Normal 150-450 [facility] Comment on above: Performed By: #### U RCX #### [facility] [address] [address] [address] Caitlin Martinez RBC 4.40 106/ul Normal 4.20-5.40 [facility] Comment on above: Performed By: #### U RCX #### [facility] [address] [address] [address] Caitlin Martinez WBC 7.3 103/ul Normal 4.0-11.0 [facility] Comment on above: Performed By: #### U RCX #### [facility] [address] [address] [address] Caitlin Martinez FREE THYROXINE INDEX T7on FTI 2.20 Normal 1.30-4.50 [facility] Comment on above: Performed By: #### I HORACIO #### [facility] [address] [place] [address] Dr. Caitlin Martinez T3U 29.0 % Critically low 30.0-39.0 [facility] Comment on above: Performed By: #### I HORACIO #### [facility] [address] [address] [address] Caitlin Martinez T4 [Mass/Vol] 7.60 ug/dL Normal 4.80-13.90 [facility] Comment on above: Performed By: #### I HORACIO #### [facility] [address] [place] [address] Dr. Caitlin Martinez GLYCOHEMOGLOBIN A1Con 2021 ADA RECOMMENDATION SEE BELOW Normal [facility] Comment on above: Result Comment: ADA RECOMMENDED LIMIT 4.0 - 6.0 ADA THERAPEUTIC TARGET < 7.0 ACTION SUGGESTED > 7.0 Performed By: #### U RCX #### [facility] [address] [place] [address] Dr. Caitlin Martinez Glucose [Mass/Vol] 97 mg/dL Normal [facility] Comment on above: Performed By: #### U RCX #### [facility] [address] [place] [address] Dr. Caitlin Martinez HbA1c (Bld) [Mass fraction] 5.0 % Normal 4.5-6.2 [facility] Comment on above: Performed By: #### U RCX #### [facility] [address] [place] [address] Dr. Caitlin Martinez IRONon 04-18-2022 Iron [Mass/Vol] 35.0 ug/dL Critically low 50.0-170.0 [facility] Comment on above: Performed By: #### I HORACIO #### [facility] [address] [place] [address] Dr. Caitlin Martinez LIPID PROFILEon 04-18-2022 CHOL-HDL RATIO NORM SEE BELOW Normal [facility] Comment on above: Result Comment: 3.3 - 4.4 LOW RISK 4.4 - 7.1 AVERAGE RISK 7.1 - 11.0 MODERATE RISK >11.0 HIGH RISK Performed By: #### I HORACIO #### [facility] [address] [place] [address] Dr. Caitlin Martinez Cholesterol [Mass/Vol] 221 mg/dL Critically high <=200 [facility] Comment on above: Performed By: #### I HORACIO #### [facility] [address] [place] [address] Dr. Caitlin Martinez Cholesterol in HDL [Mass/Vol] 67 mg/dL Critically high 40-60 [facility] Comment on above: Performed By: #### I HORACIO #### [facility] [address] [place] [address] Dr. Caitlin Martinez Cholesterol in LDL [Mass/Vol] 142.4 mg/dL Normal [facility] Comment on above: Performed By: #### I HORACIO #### [facility] [address] [address] [address] Caitlin Martinez Cholesterol.total/Cho lesterol in HDL [Mass ratio] 3.3 {ratio} Normal [facility] Comment on above: Performed By: #### I HORACIO #### [facility] [address] [address] [address] Caitlin Martinez HDL NORMAL > or = 60 mg/dl - LO W CARDIOVASCULAR RISK <40 mg/dl - HIGH CARDIOVASCULAR RISK Normal [facility] Comment on above: Performed By: #### I HORACIO #### [facility] [address] [address] [address] Caitlin Martinez LDL CALC NORMAL SEE BELOW Normal [facility] Comment on above: Result Comment: <100 mg/dl OPTIMAL 100 - 129 mg/dl NEAR OR ABOVE OPTIMAL 130 - 159 mg/dl BORDERLINE HIGH 160 - 189 mg/dl HIGH >190 mg/dl VERY HIGH Performed By: #### I HORACIO #### [facility] [address] [place] [address] Dr. Caitlin Martinez Triglyceride [Mass/Vol] 58 mg/dL Normal <=150 [facility] Comment on above: Performed By: #### I HORACIO #### [facility] [address] [address] [address] Caitlin Martinez VLDL CALC 11.6 mg/dL Normal [facility] Comment on above: Performed By: #### I HORACIO #### [facility] [address] [place] [address] Dr. Caitlin Martinez PROF 14(COMP METB)on 022 Albumin [Mass/Vol] 3.8 g/dL Normal 3.4-5.0 [facility] Comment on above: Performed By: #### I HORACIO #### [facility] [address] [place] [address] Dr. Caitlin Martinez Albumin/Globulin [Mass ratio] 1.1 {ratio} Normal [facility] Comment on above: Performed By: #### I HORACIO #### [facility] [address] [place] [address] Dr. Caitlin Martinez ALP [Catalytic activity/Vol] 132 U/L Critically high 46-116 [facility] Comment on above: Performed By: #### I HORACIO #### [facility] [address] [place] [address] Dr. Caitlin Martinez ALT [Catalytic activity/Vol] 55 U/L Normal 14-59 [facility] Comment on above: Performed By: #### I HORACIO #### [facility] [address] [address] [address] Caitlin Martinez Anion gap [Moles/Vol] 12.6 mmol/L Normal Th [facility] Comment on above: Performed By: #### I HORACIO #### [facility] [address] [place] [address] Dr. Caitlin Martinez AST [Catalytic activity/Vol] 27 U/L Normal 15-37 [facility] Comment on above: Performed By: #### I HORACIO #### [facility] [address] [place] [address] Dr. Caitlin Martinez Bilirubin [Mass/Vol] 0.6 mg/dL Normal 0.2-1.0 [facility] Comment on above: Performed By: #### I HORACIO #### [facility] [address] [place] [address] Dr. Caitlin Martinez Calcium [Mass/Vol] 9.1 mg/dL Normal 8.5-10.1 [facility] Comment on above: Performed By: #### I HORACIO #### [facility] [address] [place] [address] Dr. Caitlin Martinez Chloride [Moles/Vol] 106 mmol/L Normal 98-107 [facility] Comment on above: Performed By: #### I HORACIO #### [facility] [address] [place] [address] Dr. Caitlin Martinez CO2 [Moles/Vol] 26.5 mmol/L Normal 21.0-32.0 [facility] Comment on above: Performed By: #### I HORACIO #### [facility] [address] [place] [address] Dr. Caitlin Martinez Creatinine [Mass/Vol] 0.63 mg/dL Normal 0.55-1.02 [facility] Comment on above: Performed By: #### I HORACIO #### [facility] [address] [address] [address] Caitlin Martinez EGFR-AF EAST [place] >60 Normal >=60 [facility] Comment on above: Performed By: #### I HORACIO #### [facility] [address] [address] [address] Caitlin Martinez EGFR-NON AF EAST [place] >60 Normal >=60 [facility] Comment on above: Performed By: #### I HORACIO #### [facility] [address] [address] [address] Caitlin Martinez Globulin (S) [Mass/Vol] 3.6 g/dL Normal [facility] Comment on above: Performed By: #### I HORACIO #### [facility] [address] [place] [address] Dr. Caitlin Martinez Glucose [Mass/Vol] 98 mg/dL Normal 74-106 [facility] Comment on above: Performed By: #### I HORACIO #### [facility] [address] [address] [address] Caitlin Martinez Potassium [Moles/Vol] 4.1 mmol/L Normal 3.5-5.1 [facility] Comment on above: Performed By: #### I HORACIO #### [facility] [address] [place] [address] Dr. Caitlin Martinez Protein [Mass/Vol] 7.4 g/dL Normal 6.4-8.2 [facility] Comment on above: Performed By: #### I HORACIO #### [facility] [address] [address] [address] Caitlin Martinez Sodium [Moles/Vol] 141 mmol/L Normal 136-145 [facility] Comment on above: Performed By: #### I HORACIO #### [facility] [address] [address] [address] Caitlin Martinez Urea nitrogen [Mass/Vol] 9.0 mg/dL Normal 7.0-18.0 [facility] Comment on above: Performed By: #### I HORACIO #### [facility] [address] [address] [address] Caitlin Martinez Urea nitrogen/Creatinine [Mass ratio] 14.3 mg/mg Normal [facility] Comment on above: Performed By: #### I HORACIO #### [facility] [address] [address] [address] Caitlin Martinez TSHon 04-18-2022 TSH 1.349 uIU/mL Normal 0.358-3.740 [facility] Comment on above: Performed By: #### I HORACIO #### [facility] [address] [address] [address] Caitlin Martinez ANTIBODY ID PANELon 02-15-20 22 ANTIBODY ID PANEL Antibody ID Anti-D Blood Bank Notes most likely due to Rhogam given on 12/01/21 [facility] Comment on above: Performed By: #### D IRCMB, ABID #### [facility] [address] [address] [address] Caitlin Martinez CTA CHEST WO W [...] GAGANDEEP WHEELER Date: 2022-02-10 22:55 Normal [facility] CBC AUTO DIFFon 02-10-2022 BASO # 0.1 103/ul Normal 0.0-0.1 [facility] Comment on above: Performed By: #### C BC #### [facility] [address] [address] [address] Caitlin Martinez Basophils/100 WBC (Bld) 0.4 % Normal 0.2-2.0 [facility] Comment on above: Performed By: #### C BC #### [facility] [address] [address] [address] Caitlin Martinez EO # 0.5 103/ul Normal 0.0-0.7 [facility] Comment on above: Performed By: #### C BC #### [facility] [address] [address] [address] Caitlin Martinez Eosinophils/100 WBC (Bld) 4.2 % Normal 0.9-7.0 [facility] Comment on above: Performed By: #### C BC #### [facility] [address] [place] [address] Dr. Caitlin Martinez Erythrocyte distribution width (RBC) [Ratio] 14.7 % Normal 11.0-15.0 [facility] Comment on above: Performed By: #### C BC #### [facility] [address] [place] [address] Dr. Caitlin Martinez Hematocrit (Bld) [Volume fraction] 31.1 % Critically low 36.0-48.0 [facility] Comment on above: Performed By: #### C BC #### [facility] [address] [place] [address] Dr. Caitlin Martinez Hemoglobin (Bld) [Mass/Vol] 9.6 g/dL Critically low 12.0-16.0 [facility] Comment on above: Performed By: #### C BC #### [facility] [address] [address] [address] Caitlin Martinez IG # 0.28 10e3/ul Critically high 0.00-0.03 [facility] Comment on above: Performed By: #### C BC #### [facility] [address] [address] [address] Caitlin Martinez IG % 2.3 % Critically high 0.0-0.5 [facility] Comment on above: Performed By: #### C BC #### [facility] [address] [address] [address] Caitlin Martinez LYMPH # 3.3 103/ul Normal 1.2-3.8 [facility] Comment on above: Performed By: #### C BC #### [facility] [address] [address] [address] Caitlin Martinez Lymphocytes/100 WBC (Bld) 26.9 % Normal 20.5-60.0 [facility] Comment on above: Performed By: #### C BC #### [facility] [address] [place] [address] Dr. Caitlin Martinez MANUAL DIFF REQ NO Normal [facility] Comment on above: Performed By: #### C BC #### [facility] [address] [place] [address] Dr. Caitlin Martinez MCH (RBC) [Entitic mass] 26.2 pg Critically low 26.7-34.0 [facility] Comment on above: Performed By: #### C BC #### [facility] [address] [place] [address] Dr. Caitlin Martinez MCHC (RBC) [Mass/Vol] 30.9 g/dL Normal 29.9-35.2 [facility] Comment on above: Performed By: #### C BC #### [facility] [address] [place] [address] Dr. Caitlin Martinez MCV (RBC) [Entitic vol] 84.7 fL Normal 81.0-99.0 [facility] Comment on above: Performed By: #### C BC #### [facility] [address] [place] [address] Dr. Caitlin Martinez MONO # 1.1 103/ul Critically high 0.3-0.8 [facility] Comment on above: Performed By: #### C BC #### [facility] [address] [place] [address] Dr. Caitlin Martinez Monocytes/100 WBC (Bld) 8.7 % Normal 1.7-12.0 [facility] Comment on above: Performed By: #### C BC #### [facility] [address] [address] [address] Caitlin Martinez NEUT # 7.0 103/ul Critically high 1.4-6.5 [facility] Comment on above: Performed By: #### C BC #### [facility] [address] [address] [address] Caitlin Martinez Neutrophils/100 WBC (Bld) 57.5 % Normal 43.0-75.0 [facility] Comment on above: Performed By: #### C BC #### [facility] [address] [place] [address] Dr. Caitlin Martinez Platelet mean volume (Bld) [Entitic vol] 9.1 fL Critically low 9.5-13.5 [facility] Comment on above: Performed By: #### C BC #### [facility] [address] [place] [address] Dr. Caitlin Martinez PLT 437 103/ul Normal 150-450 [facility] Comment on above: Performed By: #### C BC #### [facility] [address] [place] [address] Dr. Caitlin Martinez RBC 3.67 106/ul Critically low 4.20-5.40 [facility] Comment on above: Performed By: #### C BC #### [facility] [address] [place] [address] Dr. Caitlin Martinez WBC 12.3 103/ul Critically high 4.0-11.0 [facility] Comment on above: Performed By: #### C BC #### [facility] [address] [place] [address] Dr. Caitlin Martinez [facility] SARS-CoV-2 (COVID-19) RNA JONATAN+probe Ql (Unsp spec) Not detected Normal NOT DETECTED [facility] Comment on above: Result Comment: When [...] for this test is supported by the [employer] Coordinator of Health and Human Service's declaration that [...] used). Performed By: #### C VDTBH #### [facility] [address] [place] [address] Dr. Caitlin Martinez PROF 14(COMP METB)on 022 Albumin [Mass/Vol] 2.1 g/dL Critically low 3.4-5.0 [facility] Comment on above: Performed By: #### U RCX #### [facility] [address] [place] [address] Dr. Caitlin Martinez Albumin/Globulin [Mass ratio] 0.5 {ratio} Normal [facility] Comment on above: Performed By: #### U RCX #### [facility] [address] [place] [address] Dr. Caitlin Martinez ALP [Catalytic activity/Vol] 202 U/L Critically high 46-116 [facility] Comment on above: Performed By: #### U RCX #### [facility] [address] [place] [address] Dr. Caitlin Martinez ALT [Catalytic activity/Vol] 20 U/L Normal 14-59 [facility] Comment on above: Performed By: #### U RCX #### [facility] [address] [place] [address] Dr. Caitlin Martinez Anion gap [Moles/Vol] 11.6 mmol/L Normal [facility] Comment on above: Performed By: #### U RCX #### [facility] [address] [place] [address] Dr. Caitlin Martinez AST [Catalytic activity/Vol] 17 U/L Normal 15-37 [facility] Comment on above: Performed By: #### U RCX #### [facility] [address] [address] [address] Caitlin Martinez Bilirubin [Mass/Vol] 0.3 mg/dL Normal 0.2-1.0 [facility] Comment on above: Performed By: #### U RCX #### [facility] [address] [address] [address] Caitlin Martinez Calcium [Mass/Vol] 9.2 mg/dL Normal 8.5-10.1 [facility] Comment on above: Performed By: #### U RCX #### [facility] [address] [address] [address] Caitlin Martinez Chloride [Moles/Vol] 104 mmol/L Normal 98-107 [facility] Comment on above: Performed By: #### U RCX #### [facility] [address] [place] [address] Dr. Caitlin Martinez CO2 [Moles/Vol] 26.9 mmol/L Normal 21.0-32.0 [facility] Comment on above: Performed By: #### U RCX #### [facility] [address] [address] [address] Caitlin Martinez Creatinine [Mass/Vol] 0.56 mg/dL Normal 0.55-1.02 [facility] Comment on above: Performed By: #### U RCX #### [facility] [address] [address] [address] Caitlin Martinez EGFR-AF [place] >60 Normal >=60 [facility] Comment on above: Performed By: #### U RCX #### [facility] [address] [address] [address] Caitlin Martinez EGFR-NON AF [place] >60 Normal >=60 [facility] Comment on above: Performed By: #### U RCX #### [facility] [address] [place] [address] Dr. Caitlin Martinez Globulin (S) [Mass/Vol] 4.4 g/dL Normal [facility] Comment on above: Performed By: #### U RCX #### [facility] [address] [address] [address] Caitlin Martinez Glucose [Mass/Vol] 108 mg/dL Critically high 74-106 [facility] Comment on above: Performed By: #### U RCX #### [facility] [address] [address] [address] Caitlin Martinez Potassium [Moles/Vol] 3.5 mmol/L Normal 3.5-5.1 [facility] Comment on above: Performed By: #### U RCX #### [facility] [address] [address] [address] Caitlin Martinez Protein [Mass/Vol] 6.5 g/dL Normal 6.4-8.2 [facility] Comment on above: Performed By: #### U RCX #### [facility] [address] [address] [address] Caitlin Martinez Sodium [Moles/Vol] 139 mmol/L Normal 136-145 [facility] Comment on above: Performed By: #### U RCX #### [facility] [address] [address] [address] Caitlin Martinez Urea nitrogen [Mass/Vol] 7.0 mg/dL Normal 7.0-18.0 [facility] Comment on above: Performed By: #### U RCX #### [facility] [address] [address] [address] Caitlin Martinez Urea nitrogen/Creatinine [Mass ratio] 12.5 mg/mg Normal [facility] Comment on above: Performed By: #### U RCX #### [facility] [address] [address] [address] Caitlin Martinez TROPONIN, HIGH SENSITIVITYon 02-10-2022 HSTROP <4.0 Normal 4.0-51.3 [facility] Comment on above: Result Comment: CUT- OFF POINTS HAVE BEEN ESTABLISHED BASED ON THE FOURTH UNIVERSAL DEFINITIONS OF MYOCARDIAL INFARCTION. THE UPPER REFERENCE LIMIT (URL) OF TROPONIN, DEFINED THE 99TH PERCENTILE OF cTnI DISTRIBUTION IN A REFERENCE POPULATION, HAS BEEN CONFIRMED THE DECISION THRESHOLD FOR OR DIAGNOSIS. Performed By: #### U RCX #### [facility] [address] [address] [address] Caitlin Martinez CBC AUTO DIFFon 02-09-2022 BASO # 0.1 103/ul Normal 0.0-0.1 [facility] Comment on above: Performed By: #### U RCX #### [facility] [address] [place] [address] Dr. Caitlin Martinez Basophils/100 WBC (Bld) 0.6 % Normal 0.2-2.0 [facility] Comment on above: Performed By: #### U RCX #### [facility] [address] [place] [address] Dr. Caitlin Martinez EO # 0.3 103/ul Normal 0.0-0.7 [facility] Comment on above: Performed By: #### U RCX #### [facility] [address] [place] [address] Dr. Caitlin Martinez Eosinophils/100 WBC (Bld) 2.3 % Normal 0.9-7.0 [facility] Comment on above: Performed By: #### U RCX #### [facility] [address] [place] [address] Dr. Caitlin Martinez Erythrocyte distribution width (RBC) [Ratio] 14.6 % Normal 11.0-15.0 [facility] Comment on above: Performed By: #### U RCX #### [facility] [address] [place] [address] Dr. Caitlin Martinez Hematocrit (Bld) [Volume fraction] 28.8 % Critically low 36.0-48.0 [facility] Comment on above: Performed By: #### U RCX #### [facility] [address] [place] [address] Dr. Caitlin Martinez Hemoglobin (Bld) [Mass/Vol] 9.0 g/dL Critically low 12.0-16.0 [facility] Comment on above: Performed By: #### U RCX #### [facility] [address] [place] [address] Dr. Caitlin Martinez IG # 0.20 10e3/ul Critically high 0.00-0.03 [facility] Comment on above: Performed By: #### U RCX #### [facility] [address] [address] [address] Caitlin Martinez IG % 1.5 % Critically high 0.0-0.5 [facility] Comment on above: Performed By: #### U RCX #### [facility] [address] [address] [address] Caitlin Martinez LYMPH # 3.0 103/ul Normal 1.2-3.8 [facility] Comment on above: Performed By: #### U RCX #### [facility] [address] [address] [address] Caitlin Martinez Lymphocytes/100 WBC (Bld) 22.2 % Normal 20.5-60.0 [facility] Comment on above: Performed By: #### U RCX #### [facility] [address] [address] [address] Caitlin Martinez MANUAL DIFF REQ NO Normal [facility] Comment on above: Performed By: #### U RCX #### [facility] [address] [address] [address] Caitlin Martinez MCH (RBC) [Entitic mass] 26.2 pg Critically low 26.7-34.0 [facility] Comment on above: Performed By: #### U RCX #### [facility] [address] [address] [address] Caitlin Martinez MCHC (RBC) [Mass/Vol] 31.3 g/dL Normal 29.9-35.2 [facility] Comment on above: Performed By: #### U RCX #### [facility] [address] [address] [address] Caitlin Martinez MCV (RBC) [Entitic vol] 83.7 fL Normal 81.0-99.0 [facility] Comment on above: Performed By: #### U RCX #### [facility] [address] [address] [address] Caitlin Martinez MONO # 1.3 103/ul Critically high 0.3-0.8 [facility] Comment on above: Performed By: #### U RCX #### [facility] [address] [address] [address] Caitlin Martinez Monocytes/100 WBC (Bld) 9.8 % Normal 1.7-12.0 [facility] Comment on above: Performed By: #### U RCX #### [facility] [address] [address] [address] Caitlin Martinez NEUT # 8.5 103/ul Critically high 1.4-6.5 [facility] Comment on above: Performed By: #### U RCX #### [facility] [address] [address] [address] Caitlin Martinez Neutrophils/100 WBC (Bld) 63.6 % Normal 43.0-75.0 [facility] Comment on above: Performed By: #### U RCX #### [facility] [address] [address] [address] Caitlin Martinez Platelet mean volume (Bld) [Entitic vol] 9.1 fL Critically low 9.5-13.5 [facility] Comment on above: Performed By: #### U RCX #### [facility] [address] [address] [address] Caitlin Martinez PLT 355 103/ul Normal 150-450 [facility] Comment on above: Performed By: #### U RCX #### [facility] [address] [address] [address] Caitlin Martinez RBC 3.44 106/ul Critically low 4.20-5.40 [facility] Comment on above: Performed By: #### U RCX #### [facility] [address] [address] [address] Caitlin Martinez WBC 13.3 103/ul Critically high 4.0-11.0 [facility] Comment on above: Performed By: #### U RCX #### [facility] [address] [address] [address] Caitlin Martinez SCREENon 02-09-2022 SCREEN Negative Normal [facility] Comment on above: Performed By: #### F ETSCRN #### [facility] [address] [address] [address] Caitlin Martinez CBC AUTO DIFFon 02-08-2022 BASO # 0.1 103/ul Normal 0.0-0.1 [facility] Comment on above: Performed By: #### U RCX #### [facility] [address] [address] [address] Caitlin Martinez Basophils/100 WBC (Bld) 0.4 % Normal 0.2-2.0 [facility] Comment on above: Performed By: #### U RCX #### [facility] [address] [place] [address] Dr. Caitlin Martinez EO # 0.3 103/ul Normal 0.0-0.7 [facility] Comment on above: Performed By: #### U RCX #### [facility] [address] [place] [address] Dr. Caitlin Martinez Eosinophils/100 WBC (Bld) 2.6 % Normal 0.9-7.0 [facility] Comment on above: Performed By: #### U RCX #### [facility] [address] [place] [address] Dr. Caitlin Martinez Erythrocyte distribution width (RBC) [Ratio] 14.7 % Normal 11.0-15.0 [facility] Comment on above: Performed By: #### U RCX #### [facility] [address] [address] [address] Caitlin Martinez Hematocrit (Bld) [Volume fraction] 30.6 % Critically low 36.0-48.0 [facility] Comment on above: Performed By: #### U RCX #### [facility] [address] [address] [address] Caitlin Martinez Hemoglobin (Bld) [Mass/Vol] 9.7 g/dL Critically low 12.0-16.0 [facility] Comment on above: Performed By: #### U RCX #### [facility] [address] [address] [address] Caitlin Martinez IG # 0.15 10e3/ul Critically high 0.00-0.03 [facility] Comment on above: Performed By: #### U RCX #### [facility] [address] [address] [address] Caitlin Martinez IG % 1.3 % Critically high 0.0-0.5 [facility] Comment on above: Performed By: #### U RCX #### [facility] [address] [address] [address] Caitlin Martinez LYMPH # 2.8 103/ul Normal 1.2-3.8 [facility] Comment on above: Performed By: #### U RCX #### [facility] [address] [address] [address] Caitlin Martinez Lymphocytes/100 WBC (Bld) 24.8 % Normal 20.5-60.0 [facility] Comment on above: Performed By: #### U RCX #### [facility] [address] [place] [address] Dr. Caitlin Martinez MANUAL DIFF REQ NO Normal [facility] Comment on above: Performed By: #### U RCX #### [facility] [address] [address] [address] Caitlin Martinez MCH (RBC) [Entitic mass] 26.6 pg Critically low 26.7-34.0 [facility] Comment on above: Performed By: #### U RCX #### [facility] [address] [address] [address] Caitlin Martinez MCHC (RBC) [Mass/Vol] 31.7 g/dL Normal 29.9-35.2 [facility] Comment on above: Performed By: #### U RCX #### [facility] [address] [address] [address] Caitlin Martinez MCV (RBC) [Entitic vol] 83.8 fL Normal 81.0-99.0 [facility] Comment on above: Performed By: #### U RCX #### [facility] [address] [address] [address] Caitlin Martinez MONO # 1.0 103/ul Critically high 0.3-0.8 [facility] Comment on above: Performed By: #### U RCX #### [facility] [address] [address] [address] Caitlin Martinez Monocytes/100 WBC (Bld) 8.7 % Normal 1.7-12.0 [facility] Comment on above: Performed By: #### U RCX #### [facility] [address] [address] [address] Caitlin Martinez NEUT # 7.0 103/ul Critically high 1.4-6.5 [facility] Comment on above: Performed By: #### U RCX #### [facility] [address] [place] [address] Dr. Caitlin Martinez Neutrophils/100 WBC (Bld) 62.2 % Normal 43.0-75.0 [facility] Comment on above: Performed By: #### U RCX #### [facility] [address] [place] [address] Dr. Caitlin Martinez Platelet mean volume (Bld) [Entitic vol] 9.0 fL Critically low 9.5-13.5 [facility] Comment on above: Performed By: #### U RCX #### [facility] [address] [place] [address] Dr. Caitlin Martinez PLT 373 103/ul Normal 150-450 [facility] Comment on above: Performed By: #### U RCX #### [facility] [address] [place] [place] [address] Dr. Caitlin Martinez RBC 3.65 106/ul Critically low 4.20-5.40 [facility] Comment on above: Performed By: #### U RCX #### [facility] [address] [place] [address] Dr. Caitlin Martinez WBC 11.3 103/ul Critically high 4.0-11.0 [facility] Comment on above: Performed By: #### U RCX #### [facility] [address] [place] [address] Dr. Caitlin Martinez [facility] SARS-CoV-2 (COVID-19) RNA JONATAN+probe Ql (Unsp spec) Not detected Normal NOT DETECTED [facility] Comment on above: Result Comment: When [...] for this test is supported by the [place] of Health and Human Service's declaration that [...] used). Performed By: #### C BC #### [facility] [address] [place] [address] Dr. Caitlin Martinez DIRECT COOMBSon 02-08-2022 DIRECT EDWINA Negative Normal [facility] Comment on above: Performed By: #### D IRCMB, ABID #### [facility] [address] [place] [address] Dr. Caitlin Martinez DRUG SCREEN RAPID (URINE)on 02-08-2022 AMP Negative Normal NEGATIVE [facility] Comment on above: Performed By: #### C BC #### [facility] [address] [place] [address] Dr. Caitlin Martinez BAR Negative Normal NEGATIVE [facility] Comment on above: Performed By: #### C BC #### [facility] [address] [place] [address] Dr. Caitlin Martinez BUP Negative Normal NEGATIVE [facility] Comment on above: Performed By: #### C BC #### [facility] [address] [place] [address] Dr. Caitlin Martinez BZO Negative Normal NEGATIVE [facility] Comment on above: Performed By: #### C BC #### [facility] [address] [address] [address] Caitlin Martinez JEANNA Negative Normal NEGATIVE [facility] Comment on above: Performed By: #### C BC #### [facility] [address] [address] [address] Caitlin Martinez CUT-OFFS SEE BELOW Normal [facility] Comment on above: Result Comment: AMP [...] ng/mL Performed By: #### C BC #### [facility] [address] [place] [address] Dr. Caitlin Martinez DRUG CUT HEADER DRUG CLASS TEST SYSTEM CUT-OFF CONCENTRATIONS ARE FOLLOWS: Normal [facility] Comment on above: Performed By: #### C BC #### [facility] [address] [place] [address] Dr. Caitlin Martinez mAMP Negative Normal NEGATIVE [facility] Comment on above: Performed By: #### C BC #### [facility] [address] [address] [address] Caitlin Martinez MTD Negative Normal NEGATIVE [facility] Comment on above: Performed By: #### C BC #### [facility] [address] [address] [address] Caitlin Martinez OPI Negative Normal NEGATIVE [facility] Comment on above: Performed By: #### C BC #### [facility] [address] [address] [address] Caitlin Martinez OXY Negative Normal NEGATIVE [facility] Comment on above: Performed By: #### C BC #### [facility] [address] [address] [address] Caitlin Martinez PCP Negative Normal NEGATIVE [facility] Comment on above: Performed By: #### C BC #### [facility] [address] [address] [address] Caitlin Martinez PPX Negative Normal NEGATIVE [facility] Comment on above: Performed By: #### C BC #### [facility] [address] [place] [address] Dr. Caitlin Martinez TCA Negative Normal NEGATIVE [facility] Comment on above: Performed By: #### C BC #### [facility] [address] [place] [address] Dr. Caitlin Martinez THC Negative Normal NEGATIVE [facility] Comment on above: Performed By: #### C BC #### [facility] [address] [place] [address] Dr. Caitlin Martinez TYPE AND SCREENon 02-08-2022 TYPE AND SCREEN Negative Normal [facility] Comment on above: Performed By: #### I HORACIO #### [facility] [address] [place] [address] Dr. Caitlin Martinez US PREG BIOPHY W [...] DAVID BLACKMON Date: 2022-02-05 16:28 Normal [facility] AMNISUREon 01-25-2022 AMNISURE Negative Normal NEGATIVE [facility] Comment on above: Performed By: #### A MNI #### [facility] [address] [place] [address] Dr. Caitlin Martinez CULTURE URINEon 01-25-2022 CULTURE URINE Culture Observations : No growth Normal [facility] Comment on above: Performed By: #### U RCX #### [facility] [address] [place] [address] Dr. Caitlin Martinez UA (CLEAN/CATCH) SURGERY NURSE/MICRO I F IND.on 01-25-2022 Bilirubin Ql (U) Negative Normal NEGATIVE [facility] Comment on above: Performed By: #### C VDTBH #### [facility] [address] [place] [address] Dr. Caitlin Martinez Clarity (U) SL CLOUDY Abnormal CLEAR [facility] Comment on above: Performed By: #### C VDTBH #### [facility] [address] [place] [address] Dr. Caitlin Martinez Color (U) LT. YELLOW Normal YELLOW [facility] Comment on above: Performed By: #### C VDTBH #### [facility] [address] [place] [address] Dr. Caitlin Martinez Glucose Ql (U) Negative Normal NEGATIVE [facility] Comment on above: Performed By: #### C VDTBH #### [facility] [address] [place] [address] Dr. Caitlin Martinez Hemoglobin Ql (U) TRACE-INTACT Abnormal NEGATIVE [facility] Comment on above: Performed By: #### C VDTBH #### [facility] [address] [place] [address] Dr. Caitlin Martinez Ketones Ql (U) Negative Normal NEGATIVE [facility] Comment on above: Performed By: #### C VDTBH #### [facility] [address] [place] [address] Dr. Caitlin Martinez LEUKOCYTES TRACE Abnormal NEGATIVE [facility] Comment on above: Performed By: #### C VDTBH #### [facility] [address] [place] [address] Dr. Caitlin Martinez Nitrite Ql (U) Negative Normal NEGATIVE [facility] Comment on above: Performed By: #### C VDTBH #### [facility] [address] [place] [address] Dr. Caitlin Martinez pH (U) 6.5 [pH] Normal 5-9 [facility] Comment on above: Performed By: #### C VDTBH #### [facility] [address] [place] [address] Dr. Caitlin Martinez SPEC GRAVITY 1.020 Normal 1.005-<=1.025 [facility] Comment on above: Performed By: #### C VDTBH #### [facility] [address] [place] [address] Dr. Caitlin Martinez UA PROTEIN Negative Normal NEGATIVE/ TRACE [facility] Comment on above: Performed By: #### C VDTBH #### [facility] [address] [place] [address] Dr. Caitlin Martinez UR MICRO IND INDICATED Normal [facility] Comment on above: Performed By: #### C VDTBH #### [facility] [address] [place] [address] Dr. Caitlin Martinez Urobilinogen Qn (U) 0.2 {Barbara'U}/dL Normal 0.2 - 1. 0 [facility] Comment on above: Performed By: #### C VDTBH #### [facility] [address] [place] [address] Dr. Caitlin Martinez URINE MICROSCOPIC ONLYon BACTERIA MODERATE Abnormal NONE SEEN [facility] Comment on above: Performed By: #### C VDTBH #### [facility] [address] [place] [address] Dr. Caitlin Martinez Bacteria identified Cx Nom (U) INDICATED Normal [facility] Comment on above: Performed By: #### C VDTBH #### [facility] [address] [place] [address] Dr. Caitlin Martinez CAST NONE SEEN Normal NONE SEEN [facility] Comment on above: Performed By: #### C VDTBH #### [facility] [address] [place] [address] Dr. Caitlin Martinez Crystals LM Nom (Urine sed) NONE SEEN Normal NONE SEEN [facility] Comment on above: Performed By: #### C VDTBH #### [facility] [address] [place] [address] Dr. Caitlin Martinez Epithelial cells LM Ql (Urine sed) FEW Abnormal NONE SEEN /RARE [facility] Comment on above: Performed By: #### C VDTBH #### [facility] [address] [place] [address] Dr. Caitlin Martinez MUCOUS TRACE Abnormal NONE SEEN [facility] Comment on above: Performed By: #### C VDTBH #### [facility] [address] [place] [address] Dr. Caitlin Martinez RBC 2-5 Abnormal 0-2 [facility] Comment on above: Performed By: #### C VDTBH #### [facility] [address] [place] [address] Dr. Caitlin Martinez WBC 0-2 Abnormal NONE SEEN [facility] Comment on above: Performed By: #### C VDTBH #### [facility] [address] [place] [address] Dr. Caitlin Martinez AMYLASEon 01-16-2022 Amylase [Catalytic activity/Vol] 49 U/L Normal 25-115 [facility] Comment on above: Performed By: #### C VDTBH #### [facility] [address] [place] [address] Dr. Caitlin Martinez BUNon 01-16-2022 Urea nitrogen [Mass/Vol] 3.0 mg/dL Critically low 7.0-18.0 [facility] Comment on above: Performed By: #### C BC #### [facility] [address] [place] [address] Dr. Caitlin Martinez CBC AUTO DIFFon 01-16-2022 BASO # 0.1 103/ul Normal 0.0-0.1 [facility] Comment on above: Performed By: #### U RCX #### [facility] [address] [place] [address] Dr. Caitlin Martinez Basophils/100 WBC (Bld) 0.6 % Normal 0.2-2.0 [facility] Comment on above: Performed By: #### U RCX #### [facility] [address] [place] [address] Dr. Caitlin Martinez EO # 0.3 103/ul Normal 0.0-0.7 [facility] Comment on above: Performed By: #### U RCX #### [facility] [address] [place] [address] Dr. Caitlin Martinez Eosinophils/100 WBC (Bld) 2.6 % Normal 0.9-7.0 [facility] Comment on above: Performed By: #### U RCX #### [facility] [address] [place] [address] Dr. Caitlin Martinez Erythrocyte distribution width (RBC) [Ratio] 14.4 % Normal 11.0-15.0 [facility] Comment on above: Performed By: #### U RCX #### [facility] [address] [place] [address] Dr. Caitlin Martinez Hematocrit (Bld) [Volume fraction] 28.4 % Critically low 36.0-48.0 [facility] Comment on above: Performed By: #### U RCX #### [facility] [address] [place] [address] Dr. Caitlin Martinez Hemoglobin (Bld) [Mass/Vol] 9.0 g/dL Critically low 12.0-16.0 [facility] Comment on above: Performed By: #### U RCX #### [facility] [address] [place] [address] Dr. Caitlin Martinez IG # 0.11 10e3/ul Critically high 0.00-0.03 [facility] Comment on above: Performed By: #### U RCX #### [facility] [address] [place] [address] Dr. Caitlin Martinez IG % 1.1 % Critically high 0.0-0.5 [facility] Comment on above: Performed By: #### U RCX #### [facility] [address] [place] [address] Dr. Caitlin Martinez LYMPH # 2.2 103/ul Normal 1.2-3.8 [facility] Comment on above: Performed By: #### U RCX #### [facility] [address] [place] [address] Dr. Caitlin Martinez Lymphocytes/100 WBC (Bld) 21.0 % Normal 20.5-60.0 [facility] Comment on above: Performed By: #### U RCX #### [facility] [address] [place] [address] Dr. Caitlin Martinez MANUAL DIFF REQ NO Normal [facility] Comment on above: Performed By: #### U RCX #### [facility] [address] [place] [address] Dr. Caitlin Martinez MCH (RBC) [Entitic mass] 28.2 pg Normal 26.7-34.0 [facility] Comment on above: Performed By: #### U RCX #### [facility] [address] [place] [address] Dr. Caitlin Martinez MCHC (RBC) [Mass/Vol] 31.7 g/dL Normal 29.9-35.2 [facility] Comment on above: Performed By: #### U RCX #### [facility] [address] [place] [address] Dr. Caitlin Martinez MCV (RBC) [Entitic vol] 89.0 fL Normal 81.0-99.0 [facility] Comment on above: Performed By: #### U RCX #### [facility] [address] [place] [address] Dr. Caitlin Martinez MONO # 0.9 103/ul Critically high 0.3-0.8 [facility] Comment on above: Performed By: #### U RCX #### [facility] [address] [place] [address] Dr. Caitlin Martinez Monocytes/100 WBC (Bld) 8.9 % Normal 1.7-12.0 [facility] Comment on above: Performed By: #### U RCX #### [facility] [address] [place] [address] Dr. Caitlin Martinez NEUT # 6.8 103/ul Critically high 1.4-6.5 [facility] Comment on above: Performed By: #### U RCX #### [facility] [address] [place] [address] Dr. Caitlin Martinez Neutrophils/100 WBC (Bld) 65.8 % Normal 43.0-75.0 [facility] Comment on above: Performed By: #### U RCX #### [facility] [address] [place] [address] Dr. Caitlin Martinez Platelet mean volume (Bld) [Entitic vol] 8.6 fL Critically low 9.5-13.5 [facility] Comment on above: Performed By: #### U RCX #### [facility] [address] [place] [address] Dr. Caitlin Martinez PLT 322 103/ul Normal 150-450 [facility] Comment on above: Performed By: #### U RCX #### [facility] [address] [place] [address] Dr. Caitlin Martinez RBC 3.19 106/ul Critically low 4.20-5.40 [facility] Comment on above: Performed By: #### U RCX #### [facility] [address] [place] [address] Dr. Caitlin Martinez WBC 10.3 103/ul Normal 4.0-11.0 [facility] Comment on above: Performed By: #### U RCX #### [facility] [address] [place] [address] Dr. Caitlin Martinez CREATININEon 01-16-2022 Creatinine [Mass/Vol] 0.55 mg/dL Normal 0.55-1.02 [facility] Comment on above: Performed By: #### C VDTBH #### [facility] [address] [place] [address] Dr. Caitlin Martinez EGFR-AF [place] >60 Normal >=60 [facility] Comment on above: Performed By: #### C VDTBH #### [facility] [address] [place] [address] Dr. Caitlin Martinez EGFR-NON AF [place] >60 Normal >=60 [facility] Comment on above: Performed By: #### C VDTBH #### [facility] [address] [place] [address] Dr. Caitlin Martinez ELECTROLYTESon 01-16-2022 Anion gap [Moles/Vol] 13.6 mmol/L Normal Th e [facility] Comment on above: Performed By: #### C VDTBH #### [facility] [address] [place] [address] Dr. Caitlin Martinez Chloride [Moles/Vol] 106 mmol/L Normal 98-107 [facility] Comment on above: Performed By: #### C VDTBH #### [facility] [address] [place] [address] Dr. Caitlin Martinez CO2 [Moles/Vol] 22.9 mmol/L Normal 21.0-32.0 [facility] Comment on above: Performed By: #### C VDTBH #### [facility] [address] [place] [address] Dr. Caitlin Martinez Potassium [Moles/Vol] 3.5 mmol/L Normal 3.5-5.1 [facility] Comment on above: Performed By: #### C VDTBH #### [facility] [address] [place] [address] Dr. Caitlin Martinez Sodium [Moles/Vol] 139 mmol/L Normal 136-145 [facility] Comment on above: Performed By: #### C VDTBH #### [facility] [address] [place] [address] Dr. Caitlin Martinez LIPASEon 01-16-2022 Lipase [Catalytic activity/Vol] 66.0 U/L Critically low 73.0-393.0 [facility] Comment on above: Performed By: #### C BC #### [facility] [address] [place] [address] Dr. Caitlin Martinez SGOTon 01-16-2022 AST [Catalytic activity/Vol] 12 U/L Critically low 15-37 [facility] Comment on above: Performed By: #### C VDTBH #### [facility] [address] [place] [address] Dr. Caitlin Martinez SGPTon 01-16-2022 ALT [Catalytic activity/Vol] 9 U/L Critically low 14-59 [facility] Comment on above: Performed By: #### C VDTBH #### [facility] [address] [place] [address] Dr. Caitlin Martinez CBC AUTO DIFFon 01-15-2022 BASO # 0.1 103/ul Normal 0.0-0.1 [facility] Comment on above: Performed By: #### C VDTBH #### [facility] [address] [place] [address] Dr. Caitlin Martinez Basophils/100 WBC (Bld) 0.4 % Normal 0.2-2.0 [facility] Comment on above: Performed By: #### C VDTBH #### [facility] [address] [place] [address] Dr. Caitlin Martinez EO # 0.2 103/ul Normal 0.0-0.7 [facility] Comment on above: Performed By: #### C VDTBH #### [facility] [address] [place] [address] Dr. Caitlin Martinez Eosinophils/100 WBC (Bld) 1.4 % Normal 0.9-7.0 [facility] Comment on above: Performed By: #### C VDTBH #### [facility] [address] [place] [address] Dr. Caitlin Martinez Erythrocyte distribution width (RBC) [Ratio] 14.1 % Normal 11.0-15.0 [facility] Comment on above: Performed By: #### C VDTBH #### [facility] [address] [place] [address] Dr. Caitlin Martinez Hematocrit (Bld) [Volume fraction] 28.4 % Critically low 36.0-48.0 [facility] Comment on above: Performed By: #### C VDTBH #### [facility] [address] [place] [address] Dr. Caitlin Martinez Hemoglobin (Bld) [Mass/Vol] 9.0 g/dL Critically low 12.0-16.0 [facility] Comment on above: Performed By: #### C VDTBH #### [facility] [address] [place] [address] Dr. Caitlin Martinez IG # 0.18 10e3/ul Critically high 0.00-0.03 [facility] Comment on above: Performed By: #### C VDTBH #### [facility] [address] [place] [address] Dr. Caitlin Martinez IG % 1.3 % Critically high 0.0-0.5 [facility] Comment on above: Performed By: #### C VDTBH #### [facility] [address] [place] [address] Dr. Caitlin Martinez LYMPH # 2.4 103/ul Normal 1.2-3.8 [facility] Comment on above: Performed By: #### C VDTBH #### [facility] [address] [place] [address] Dr. Caitlin Martinez Lymphocytes/100 WBC (Bld) 16.8 % Critically low 20.5-60.0 [facility] Comment on above: Performed By: #### C VDTBH #### [facility] [address] [place] [address] Dr. Caitlin Martinez MANUAL DIFF REQ NO Normal [facility] Comment on above: Performed By: #### C VDTBH #### [facility] [address] [place] [address] Dr. Caitlin Martinez MCH (RBC) [Entitic mass] 27.9 pg Normal 26.7-34.0 [facility] Comment on above: Performed By: #### C VDTBH #### [facility] [address] [place] [address] Dr. Caitlin Martinez MCHC (RBC) [Mass/Vol] 31.7 g/dL Normal 29.9-35.2 [facility] Comment on above: Performed By: #### C VDTBH #### [facility] [address] [place] [address] Dr. Caitlin Martinez MCV (RBC) [Entitic vol] 87.9 fL Normal 81.0-99.0 [facility] Comment on above: Performed By: #### C VDTBH #### [facility] [address] [place] [address] Dr. Caitlin Martinez MONO # 0.9 103/ul Critically high 0.3-0.8 [facility] Comment on above: Performed By: #### C VDTBH #### [facility] [address] [place] [address] Dr. Caitlin Martinez Monocytes/100 WBC (Bld) 6.7 % Normal 1.7-12.0 [facility] Comment on above: Performed By: #### C VDTBH #### [facility] [address] [place] [address] Dr. Caitlin Martinez NEUT # 10.3 103/ul Critically high 1.4-6.5 [facility] Comment on above: Performed By: #### C VDTBH #### [facility] [address] [place] [address] Dr. Caitlin Martinez Neutrophils/100 WBC (Bld) 73.4 % Normal 43.0-75.0 [facility] Comment on above: Performed By: #### C VDTBH #### [facility] [address] [place] [address] Dr. Caitlin Martinez Platelet mean volume (Bld) [Entitic vol] 9.0 fL Critically low 9.5-13.5 [facility] Comment on above: Performed By: #### C VDTBH #### [facility] [address] [place] [address] Dr. Caitlin Martinez PLT 318 103/ul Normal 150-450 [facility] Comment on above: Performed By: #### C VDTBH #### [facility] [address] [place] [address] Dr. Caitlin Martinez RBC 3.23 106/ul Critically low 4.20-5.40 [facility] Comment on above: Performed By: #### C VDTBH #### [facility] [address] [place] [address] Dr. Caitlin aMrtinez WBC 14.0 103/ul Critically high 4.0-11.0 [facility] Comment on above: Performed By: #### C VDTBH #### [facility] [address] [place] [address] ABD/PELVIS WO CONon [...] DAVID BLACKMON Date: 2022-01-15 16:31 Normal [facility] CULTURE URINEon 01-15-2022 CULTURE URINE Culture Observations : LIGHT GROWTH OF MIXED GENITAL COSME. NO POTENTIAL PATHOGENS SEEN. Normal [facility] Comment on above: Performed By: #### U RCX #### [facility] [address] [address] [address] Caitlin Martinez UA (CLEAN/CATCH) SURGERY NURSE/MICRO I F IND.on 01-15-2022 Bilirubin Ql (U) Negative Normal NEGATIVE [facility] Comment on above: Performed By: #### C BC #### [facility] [address] [place], [place] [address] Dr. Caitlin Martinez Clarity (U) CLEAR Normal CLEAR [facility] Comment on above: Performed By: #### C BC #### [facility] [address] [place] [address] Dr. Caitlin Martinez Color (U) LT. YELLOW Normal YELLOW [facility] Comment on above: Performed By: #### C BC #### [facility] [address] [place] [address] Dr. Caitlin Martinez Glucose Ql (U) Negative Normal NEGATIVE [facility] Comment on above: Performed By: #### C BC #### [facility] [address] [place] [address] Dr. Caitlin Martinez Hemoglobin Ql (U) Negative Normal NEGATIVE [facility] Comment on above: Performed By: #### C BC #### [facility] [address] [place] [address] Dr. Caitlin Martinez Ketones Ql (U) Negative Normal NEGATIVE [facility] Comment on above: Performed By: #### C BC #### [facility] [address] [place] [address] Dr. Caitlin Martinez LEUKOCYTES TRACE Abnormal NEGATIVE [facility] Comment on above: Performed By: #### C BC #### [facility] [address] [place] [address] Dr. Caitlin Martinez Nitrite Ql (U) Negative Normal NEGATIVE [facility] Comment on above: Performed By: #### C BC #### [facility] [address] [place] [address] Dr. Caitlin Martinez pH (U) 7.0 [pH] Normal 5-9 [facility] Comment on above: Performed By: #### C BC #### [facility] [address] [place] [address] Dr. Caitiln Martinez SPEC GRAVITY 1.010 Normal 1.005-<=1.025 [facility] Comment on above: Performed By: #### C BC #### [facility] [address] [place] [address] Dr. Caitlin Martinez UA PROTEIN Negative Normal NEGATIVE/ TRACE [facility] Comment on above: Performed By: #### C BC #### [facility] [address] [place] [address] Dr. Caitlin Martinez UR MICRO IND INDICATED Normal [facility] Comment on above: Performed By: #### C BC #### [facility] [address] [place] [address] Dr. Caitlin Martinez Urobilinogen Qn (U) 0.2 {Barbara'U}/dL Normal 0.2 - 1. 0 [facility] Comment on above: Performed By: #### C BC #### [facility] [address] [place] [address] Dr. Caitlin Martinez URINE MICROSCOPIC ONLYon BACTERIA MODERATE Abnormal NONE SEEN [facility] Comment on above: Performed By: #### C BC #### [facility] [address] [place] [address] Dr. Caitlin Martinez Bacteria identified Cx Nom (U) INDICATED Normal [facility] Comment on above: Performed By: #### C BC #### [facility] [address] [place] [address] Dr. Caitlin Martinez CAST NONE SEEN Normal NONE SEEN [facility] Comment on above: Performed By: #### C BC #### [facility] [address] [place] [address] Dr. Caitlin Martinez Crystals LM Nom (Urine sed) NONE SEEN Normal NONE SEEN [facility] Comment on above: Performed By: #### C BC #### [facility] [address] [place] [address] Dr. Caitlin Martinez Epithelial cells LM Ql (Urine sed) MODERATE Abnormal NONE SEEN /RARE [facility] Comment on above: Performed By: #### C BC #### [facility] [address] [place] [address] Dr. Caitlin Martinez MUCOUS NONE SEEN Normal NONE SEEN [facility] Comment on above: Performed By: #### C BC #### [facility] [address] [place] [address] Dr. Caitlin Martinez RBC NONE SEEN Abnormal 0-2 [facility] Comment on above: Performed By: #### C BC #### [facility] [address] [place] [address] Dr. Caitlin Martinez WBC 2-5 Abnormal NONE SEEN [facility] Comment on above: Performed By: #### C BC #### [facility] [address] [address] [address] Caitlin Martinez US APPENDIXon 01-15-2022 US [...] by: DAVID BLACKMON Date: 2022-01-15 14:14 Normal [facility] US PREG GROWTHon 01-15-2022 US PREG [...] by: DAVID BLACKMON Date: 2022-01-15 10:59 Normal [facility] US PREG PLACENTAon US PREG PLACENTA [...] DAVID BLACKMON Date: 2022-01-15 10:57 Normal [facility] UA (CLEAN/CATCH) SURGERY NURSE/MICRO I F IND.on 12-29-2021 Bilirubin Ql (U) Negative Normal NEGATIVE [facility] Comment on above: Performed By: #### C BC #### [facility] [address] [place] [address] Dr. Caitlin Martinez Clarity (U) CLEAR Normal CLEAR [facility] Comment on above: Performed By: #### C BC #### [facility] [address] [place] [address] Dr. Caitlin Martinez Color (U) LT. YELLOW Normal YELLOW [facility] Comment on above: Performed By: #### C BC #### [facility] [address] [place] [address] Dr. Caitlin Martinez Glucose Ql (U) Negative Normal NEGATIVE [facility] Comment on above: Performed By: #### C BC #### [facility] [address] [place] [address] Dr. Caitlin Martinez Hemoglobin Ql (U) Negative Normal NEGATIVE [facility] Comment on above: Performed By: #### C BC #### [facility] [address] [place] [address] Dr. Caitlin Martinez Ketones Ql (U) Negative Normal NEGATIVE [facility] Comment on above: Performed By: #### C BC #### [facility] [address] [place] [address] Dr. Caitlin Martinez LEUKOCYTES Negative Normal NEGATIVE [facility] Comment on above: Performed By: #### C BC #### [facility] [address] [place] [address] Dr. Caitlin Martinez Nitrite Ql (U) Negative Normal NEGATIVE [facility] Comment on above: Performed By: #### C BC #### [facility] [address] [place] [address] Dr. Caitlin Martinez pH (U) 6.5 [pH] Normal 5-9 [facility] Comment on above: Performed By: #### C BC #### [facility] [address] [place] [address] Dr. Caitlin Martinez SPEC GRAVITY 1.020 Normal 1.005-<=1.025 [facility] Comment on above: Performed By: #### C BC #### [facility] [address] [place] [address] Dr. Caitlin Martinez UA PROTEIN Negative Normal NEGATIVE/ TRACE [facility] Comment on above: Performed By: #### C BC #### [facility] [address] [place] [address] Dr. Caitlin Martinez UR MICRO IND NOT INDICATED Normal [facility] Comment on above: Performed By: #### C BC #### [facility] [address] [place] [address] Dr. Caitlin Martinez Urobilinogen Qn (U) 1.0 {Barbara'U}/dL Normal 0.2 - 1. 0 [facility] Comment on above: Performed By: #### C BC #### [facility] [address] [place] [address] Dr. Caitlin Martinez US PREG CERVICAL LENGTHon [...] KIRK OATES Date: 2021-12-29 15:53 Normal [facility] UA (CLEAN/CATCH) SURGERY NURSE/MICRO I F IND.on 12-18-2021 Bilirubin Ql (U) Negative Normal NEGATIVE [facility] Comment on above: Performed By: #### C BC #### [facility] [address] [place] [address] Dr. Caitlin Martinez Clarity (U) CLEAR Normal CLEAR [facility] Comment on above: Performed By: #### C BC #### [facility] [address] [place] [address] Dr. Caitlin Martinez Color (U) YELLOW Normal YELLOW [facility] Comment on above: Performed By: #### C BC #### [facility] [address] [place] [address] Dr. Caitlin Martinez Glucose Ql (U) Negative Normal NEGATIVE [facility] Comment on above: Performed By: #### C BC #### [facility] [address] [place] [address] Dr. Caitlin Martinez Hemoglobin Ql (U) Negative Normal NEGATIVE [facility] Comment on above: Performed By: #### C BC #### [facility] [address] [place] [address] Dr. Caitlin Martinez Ketones Ql (U) TRACE Abnormal NEGATIVE [facility] Comment on above: Performed By: #### C BC #### [facility] [address] [place] [address] Dr. Caitlin Martinez LEUKOCYTES Negative Normal NEGATIVE [facility] Comment on above: Performed By: #### C BC #### [facility] [address] [place] [address] Dr. Caitlin Martinez Nitrite Ql (U) Negative Normal NEGATIVE [facility] Comment on above: Performed By: #### C BC #### [facility] [address] [place] [address] Dr. Caitlin Martinez pH (U) 6.0 [pH] Normal 5-9 [facility] Comment on above: Performed By: #### C BC #### [facility] [address] [place] [address] Dr. Caitlin Martinez SPEC GRAVITY 1.025 Normal 1.005-<=1.025 [facility] Comment on above: Performed By: #### C BC #### [facility] [address] [place] [address] Dr. Caitlin Martinez UA PROTEIN Negative Normal NEGATIVE/ TRACE [facility] Comment on above: Performed By: #### C BC #### [facility] [address] [place] [address] Dr. Caitlin Martinez UR MICRO IND NOT INDICATED Normal [facility] Comment on above: Performed By: #### C BC #### [facility] [address] [place] [address] Dr. Caitlin Martinez Urobilinogen Qn (U) 4 {Barbara'U}/dL Abnormal 0.2 - 1.0 [facility] Comment on above: Performed By: #### C BC #### [facility] [address] [place] [address] Dr. Caitlin Martinez RHOGAMon 11-28-2021 RHOGAM Status Information Issued Quantity 1 Product ID Rh Immune Globulin Lot Number [id number] Issue Date/Time [id number] Normal [facility] Comment on above: Performed By: #### I HORACIO #### [facility] [address] [place] [address] Dr. Caitlin Martinez TYPE AND SCREENon 11-27-2021 TYPE AND SCREEN Negative Normal [facility] Comment on above: Performed By: #### T NS #### [facility] [address] [place] [address] Dr. Caitlin Martinez CULTURE URINEon 11-23-2021 CULTURE URINE Culture Observations : No growth Normal [facility] Comment on above: Performed By: #### I HORACIO #### [facility] [address] [place] [address] Dr. Caitlin Martinez UA (CLEAN/CATCH) SURGERY NURSE/MICRO I F IND.on 11-23-2021 Bilirubin Ql (U) Negative Normal NEGATIVE [facility] Comment on above: Performed By: #### U RCX #### [facility] [address] [place] [address] Dr. Caitlin Martinez Clarity (U) CLEAR Normal CLEAR [facility] Comment on above: Performed By: #### U RCX #### [facility] [address] [place] [address] Dr. Caitlin Martinez Color (U) LT. YELLOW Normal YELLOW [facility] Comment on above: Performed By: #### U RCX #### [facility] [address] [place] [address] Dr. Caitlin Martinez Glucose Ql (U) Negative Normal NEGATIVE [facility] Comment on above: Performed By: #### U RCX #### [facility] [address] [place] [address] Dr. Caitlin Martinez Hemoglobin Ql (U) Negative Normal NEGATIVE [facility] Comment on above: Performed By: #### U RCX #### [facility] [address] [address] [address] Caitlin Martinez Ketones Ql (U) Negative Normal NEGATIVE [facility] Comment on above: Performed By: #### U RCX #### [facility] [address] [place] [address] Dr. Caitlin Martinez LEUKOCYTES SMALL Abnormal NEGATIVE [facility] Comment on above: Performed By: #### U RCX #### [facility] [address] [address] [address] Caitlin Martinez Nitrite Ql (U) Negative Normal NEGATIVE [facility] Comment on above: Performed By: #### U RCX #### [facility] [address] [place] [address] Dr. Caitlin Martinez pH (U) 6.5 [pH] Normal 5-9 [facility] Comment on above: Performed By: #### U RCX #### [facility] [address] [place] [address] Dr. Caitlin Martinez SPEC GRAVITY 1.010 Normal 1.005-<=1.025 [facility] Comment on above: Performed By: #### U RCX #### [facility] [address] [place] [address] Dr. Caitlin Martinez UA PROTEIN Negative Normal NEGATIVE/ TRACE [facility] Comment on above: Performed By: #### U RCX #### [facility] [address] [place] [address] Dr. Caitlin Martinez UR MICRO IND INDICATED Normal [facility] Comment on above: Performed By: #### U RCX #### [facility] [address] [place] [address] Dr. Caitlin Martinez Urobilinogen Qn (U) 0.2 {Barbara'U}/dL Normal 0.2 - 1. 0 [facility] Comment on above: Performed By: #### U RCX #### [facility] [address] [place] [address] Dr. Caitlin Martinez URINE MICROSCOPIC ONLYon BACTERIA TRACE Abnormal NONE SEEN [facility] Comment on above: Performed By: #### U RCX #### [facility] [address] [place] [address] Dr. Caitlin Martinez Bacteria identified Cx Nom (U) INDICATED Normal [facility] Comment on above: Performed By: #### U RCX #### [facility] [address] [place] [address] Dr. Caitlin Martinez CAST SEEN Abnormal NONE SEEN [facility] Comment on above: Performed By: #### U RCX #### [facility] [address] [place] [address] Dr. Caitlin Martinez Crystals LM Nom (Urine sed) SEEN Abnormal NONE SEEN [facility] Comment on above: Performed By: #### U RCX #### [facility] [address] [place] [address] Dr. Caitlin Martinez Epithelial cells LM Ql (Urine sed) RARE Normal NONE SEEN /RARE [facility] Comment on above: Performed By: #### U RCX #### [facility] [address] [place] [address] Dr. Caitlin Martinez MUCOUS TRACE Abnormal NONE SEEN [facility] Comment on above: Performed By: #### U RCX #### [facility] [address] [place] [address] Dr. Caitlin Martinez RBC 0-2 Normal 0-2 [facility] Comment on above: Performed By: #### U RCX #### [facility] [address] [place] [address] Dr. Caitlin Martinez WBC 2-5 Abnormal NONE SEEN [facility] Comment on above: Performed By: #### U RCX #### [facility] [address] [place] [address] Dr. Caitlin Martinez GLUCOSE - 1HRon 11-06-2021 Glucose [Mass/Vol] 131 mg/dL Critically high 74-106 T [facility] Comment on above: Performed By: #### I HORACIO #### [facility] [address] [place] [address] Dr. Caitlin Martinez HEMOGRAM AND PLATELon 05-23- 2022 Hematocrit (Bld) [Volume fraction] 34.2 % Critically low 36.0-48.0 [facility] Comment on above: Performed By: #### C BC #### [facility] [address] [place] [address] Dr. Caitlin Martinez Hemoglobin (Bld) [Mass/Vol] 11.3 g/dL Critically low 12.0-16.0 [facility] Comment on above: Performed By: #### C BC #### [facility] [address] [place] [address] Dr. Caitlin Martinez MCH (RBC) [Entitic mass] 31.7 pg Normal 26.7-34.0 [facility] Comment on above: Performed By: #### C BC #### [facility] [address] [place] [address] Dr. Caitlin Martinez MCHC (RBC) [Mass/Vol] 33.0 g/dL Normal 29.9-35.2 [facility] Comment on above: Performed By: #### C BC #### [facility] [address] [place] [address] Dr. Caitlin Martinez MCV (RBC) [Entitic vol] 96.1 fL Normal 81.0-99.0 [facility] Comment on above: Performed By: #### C BC #### [facility] [address] [place] [address] Dr. Caitlin Martinez PLT 372 103/ul Normal 150-450 [facility] Comment on above: Performed By: #### C BC #### [facility] [address] [place] [address] Dr. Caitlin Martinez RBC 3.56 106/ul Critically low 4.20-5.40 [facility] Comment on above: Performed By: #### C BC #### [facility] [address] [place] [address] Dr. Caitlin Martinez WBC 10.1 103/ul Normal 4.0-11.0 [facility] Comment on above: Performed By: #### C BC #### [facility] [address] [place] [address] Dr. Caitlin Martinez CHLAMYDIA/GONOCOCCUS JONATAN (SW AB/URINE/PAPon 10-31-2021 Chlamydia trachomatis, JONATAN Negative Normal Negative [facility] Comment on above: Performed By: #### C BC #### [facility] [address] [place] [address] Dr. Caitlin Martinez Neisseria gonorrhoeae, JONATAN Negative Normal Negative [facility] Comment on above: Performed By: #### C BC #### [facility] [address] [place] [address] Dr. Caitlin Martinez VAGINITIS/VAGINOSIS DNA PROB Paramjit 10-29-2021 Selena species Negative Normal Negative [facility] Comment on above: Performed By: #### U RCX #### [facility] [address] [place] [address] Dr. Caitlin Martinez Gardnerella vaginalis Negative Normal Negative [facility] Comment on above: Performed By: #### U RCX #### [facility] [address] [place] [address] Dr. Caitlin Martinez Trichomonas vaginalis Negative Normal Negative [facility] Comment on above: Performed By: #### U RCX #### [facility] [address] [place] [address] Dr. Caitlin Martinez US PREG INCOMPLETE ANATOMYon [...] DAVID BLACKMON Date: 2021-10-26 12:05 Normal [facility] CBC W MANUAL DIFFon 10-25-19 22 ATYPICAL LYMPH # Normal [facility] Comment on above: Performed By: #### U RCX #### [facility] [address] [place] [address] Dr. Caitlin Martinez ATYPICAL LYMPH % Normal [facility] Comment on above: Performed By: #### U RCX #### [facility] [address] [place] [address] Dr. Caitlin Martinez BAND # 0.1 103/ul Normal 0.0-0.3 [facility] Comment on above: Performed By: #### U RCX #### [facility] [address] [place] [address] Dr. Caitlin Martinez BAND % 1 % Normal 0-5 [facility] Comment on above: Performed By: #### U RCX #### [facility] [address] [place] [address] Dr. Caitlin Martinez BASOM # 0.00 103/ul Normal 0.00-0.10 [facility] Comment on above: Performed By: #### U RCX #### [facility] [address] [place] [address] Dr. Caitlin Martinez BASOM % 0.0 % Critically low 0.2-2.0 [facility] Comment on above: Performed By: #### U RCX #### [facility] [address] [place] [address] Dr. Caitlin Martinez BLAST # Normal [facility] Comment on above: Performed By: #### U RCX #### [facility] [address] [place] [address] Dr. Caitlin Martinez BLAST % Normal [facility] Comment on above: Performed By: #### U RCX #### [facility] [address] [place] [address] Dr. Caitlin Martinez CORRECTED WBC Normal 4.0-11.0 [facility] Comment on above: Performed By: #### U RCX #### [facility] [address] [place] [address] Dr. Caitlin Martinez EOS # 0.12 103/ul Normal 0.00-0.70 [facility] Comment on above: Performed By: #### U RCX #### [facility] [address] [place] [address] Dr. Caitlin Martinez EOS% 1.0 % Normal 0.9-7.0 [facility] Comment on above: Performed By: #### U RCX #### [facility] [address] [address] [address] Caitlin Martinez HCT 31.5 % Critically low 36.0-48.0 [facility] Comment on above: Performed By: #### U RCX #### [facility] [address] [address] [address] Caitlin Martinez HGB 10.5 g/dl Critically low 12.0-16.0 [facility] Comment on above: Performed By: #### U RCX #### [facility] [address] [address] [address] Caitlin Martinez LYMPHM # 0.37 103/ul Critically low 1.20-3.80 [facility] Comment on above: Performed By: #### U RCX #### [facility] [address] [place] [address] Dr. Caitlin Martinez LYMPHM% 3.0 % Critically low 20.5-60.0 [facility] Comment on above: Performed By: #### U RCX #### [facility] [address] [address] [address] Caitlin Martinez MCH 31.8 pg Normal 26.7-34.0 [facility] Comment on above: Performed By: #### U RCX #### [facility] [address] [address] [address] Caitlin Martinez MCHC 33.3 g/dl Normal 29.9-35.2 [facility] Comment on above: Performed By: #### U RCX #### [facility] [address] [address] [address] Caitlin Martinez MCV 95.5 fL Normal 81.0-99.0 [facility] Comment on above: Performed By: #### U RCX #### [facility] [address] [place] [address] Dr. Caitlin Martinez METAMYELOCYTE # Normal [facility] Comment on above: Performed By: #### U RCX #### [facility] [address] [place] [address] Dr. Caitlin Martinez METAMYELOCYTE % Normal [facility] Comment on above: Performed By: #### U RCX #### [facility] [address] [address] [address] Caitlin Martinez MONOM# 0.73 103/ul Normal 0.30-0.80 [facility] Comment on above: Performed By: #### U RCX #### [facility] [address] [address] [address] Caitlin Martinez MONOM% 6.0 % Normal 1.7-12.0 [facility] Comment on above: Performed By: #### U RCX #### [facility] [address] [address] [address] Caitlin Martinez MPV 9.5 fL Normal 9.5-13.5 [facility] Comment on above: Performed By: #### U RCX #### [facility] [address] [place] [address] Dr. Caitlin Martinez MYELOCYTE # Normal [facility] Comment on above: Performed By: #### U RCX #### [facility] [address] [place] [address] Dr. Caitlin Martinez MYELOCYTE % Normal [facility] Comment on above: Performed By: #### U RCX #### [facility] [address] [place] [address] Dr. Caitlin Martinez NRBC Normal [facility] Comment on above: Performed By: #### U RCX #### [facility] [address] [place] [address] Dr. Caitlin Martinez PLT 275 103/ul Normal 150-450 [facility] Comment on above: Performed By: #### U RCX #### [facility] [address] [place] [address] Dr. Caitlin Martinez RBC 3.30 106/ul Critically low 4.20-5.40 [facility] Comment on above: Performed By: #### U RCX #### [facility] [address] [place] [address] Dr. Caitlin Martinez RDW 13.6 % Normal 11.0-15.0 [facility] Comment on above: Performed By: #### U RCX #### [facility] [address] [address] [address] Caitlin Martinez SEG # 10.86 103/ul Critically high 1.40-6.50 [facility] Comment on above: Performed By: #### U RCX #### [facility] [address] [place] [address] Dr. Caitlin Martinez SEG % 89.0 % Critically high 43.0-75.0 [facility] Comment on above: Performed By: #### U RCX #### [facility] [address] [address] [address] Caitlin Martinez WBC 12.2 103/ul Critically high 4.0-11.0 [facility] Comment on above: Performed By: #### U RCX #### [facility] [address] [place] [address] Dr. Caitlin Martinez ER URINE PROFILEon 2 Bilirubin Ql (U) Negative Normal NEGATIVE [facility] Comment on above: Performed By: #### C VDTBH #### [facility] [address] [place] [address] Dr. Caitlin Martinez Clarity (U) SL CLOUDY Abnormal CLEAR [facility] Comment on above: Performed By: #### C VDTBH #### [facility] [address] [place] [address] Dr. Caitlin Martinez Color (U) YELLOW Normal YELLOW [facility] Comment on above: Performed By: #### C VDTBH #### [facility] [address] [place] [address] Dr. Caitlin Martinez ERUAHNadine A micrscopic examination will be performed if indicated. Normal [facility] Comment on above: Performed By: #### C VDTBH #### [facility] [address] [place] [address] Dr. Caitlin Martinez Glucose Ql (U) Negative Normal NEGATIVE [facility] Comment on above: Performed By: #### C VDTBH #### [facility] [address] [place] [address] Dr. Caitlin Martinez Hemoglobin Ql (U) Negative Normal NEGATIVE [facility] Comment on above: Performed By: #### C VDTBH #### [facility] [address] [place] [address] Dr. Caitlin Martinez Ketones Ql (U) >=80 Abnormal NEGATIVE [facility] Comment on above: Performed By: #### C VDTBH #### [facility] [address] [place] [address] Dr. Caitlin Martinez LEUKOCYTES Negative Normal NEGATIVE [facility] Comment on above: Performed By: #### C VDTBH #### [facility] [address] [place] [address] Dr. Caitlin Martinez Nitrite Ql (U) Negative Normal NEGATIVE [facility] Comment on above: Performed By: #### C VDTBH #### [facility] [address] [place] [address] Dr. Caitlin Martinez pH (U) 6.0 [pH] Normal 5-9 [facility] Comment on above: Performed By: #### C VDTBH #### [facility] [address] [place] [address] Dr. Caitlin Martinez SPEC GRAVITY 1.020 Normal 1.005-<=1.025 [facility] Comment on above: Performed By: #### C VDTBH #### [facility] [address] [place] [address] Dr. Caitlin Martinez UA PROTEIN Negative Normal NEGATIVE/ TRACE [facility] Comment on above: Performed By: #### C VDTBH #### [facility] [address] [place] [address] Dr. Caitlin Martinez UR MICRO IND NOT INDICATED Normal [facility] Comment on above: Performed By: #### C VDTBH #### [facility] [address] [place] [address] Dr. Caitlin Martinez Urobilinogen Qn (U) 1.0 {Barbara'U}/dL Normal 0.2 - 1. 0 [facility] Comment on above: Performed By: #### C VDTBH #### [facility] [address] [place] [address] Dr. Caitlin Martinez INFLUENZA A AND B AGon 10-24 INFLUBNEG SEE BELOW Normal [facility] Comment on above: Result Comment: Nega tive for Flu B protein antigen. Infection due to Flu B cannot be ruled out. Flu B antigen in the sample may be below the detection limit of the test. Performed By: #### C VDTBH #### [facility] [address] [place] [address] Dr. Caitlin Martinez INFLUENZA A AG Positive Abnormal NEGATIVE SEE COMMENT [facility] Comment on above: Performed By: #### C VDTBH #### [facility] [address] [place] [address] Dr. Caitlin Martinez INFLUENZA B AG Negative Normal NEGATIVE SEE COMMENT [facility] Comment on above: Performed By: #### C VDTBH #### [facility] [address] [place] [address] Dr. Caitlin Martinez INFLUPOSH SEE BELOW Normal [facility] Comment on above: Result Comment: NOTE : Live attenuated influenzae vaccine viruses can cause a positive result for a rapid influenza diagnostic test if administered up to 7 days prior to rapid testing. Performed By: #### C VDTBH #### [facility] [address] [place] [address] Dr. Caitlin Martinez INTERNAL CONTROLS Within Normal Limits Normal Wi thin Normal Limits [facility] Comment on above: Performed By: #### C VDTBH #### [facility] [address] [place] [address] Dr. Caitlin Martinez PROF CHEM 8 (BAS METB)on Anion gap [Moles/Vol] 14.4 mmol/L Normal Th [facility] Comment on above: Performed By: #### D IRCMB, ABID #### [facility] [address] [place] [address] Dr. Caitlin Martinez Calcium [Mass/Vol] 8.4 mg/dL Critically low 8.5-10.1 Th [facility] Comment on above: Performed By: #### D IRCMRhina, ABID #### [facility] [address] [place] [address] Dr. Caitlin Martinez Chloride [Moles/Vol] 101 mmol/L Normal 98-107 [facility] Comment on above: Performed By: #### D IRCMB, ABID #### [facility] [address] [address] [address] Caitlin Martinez CO2 [Moles/Vol] 19.7 mmol/L Critically low 21.0-32.0 [facility] Comment on above: Performed By: #### D IRCMB, ABID #### [facility] [address] [address] [address] Caitlin Martinez Creatinine [Mass/Vol] 0.55 mg/dL Normal 0.55-1.02 [facility] Comment on above: Performed By: #### D IRCMB, ABID #### [facility] [address] [address] [address] Caitlin Martinez EGFR-AF [place] >60 Normal >=60 [facility] Comment on above: Performed By: #### D IRCMB, ABID #### [facility] [address] [place] [address] Dr. Caitlin Martinez EGFR-NON AF [place] >60 Normal >=60 [facility] Comment on above: Performed By: #### D IRCMB, ABID #### [facility] [address] [address] [address] Caitlin Martinez Glucose [Mass/Vol] 91 mg/dL Normal 74-106 [facility] Comment on above: Performed By: #### D IRCMB, ABID #### [facility] [address] [address] [address] Caitlin Martinez Potassium [Moles/Vol] 3.1 mmol/L Critically low 3.5-5.1 [facility] Comment on above: Performed By: #### D IRCMB, ABID #### [facility] [address] [address] [address] Caitlin Martinez Sodium [Moles/Vol] 132 mmol/L Critically low 136-145 Th [facility] Comment on above: Performed By: #### D IRCMB, ABID #### [facility] [address] [place], [place] [address] Dr. Caitlin Martinez Urea nitrogen [Mass/Vol] 7.0 mg/dL Normal 7.0-18.0 [facility] Comment on above: Performed By: #### D IRCMB, ABID #### [facility] [address] [place], [place] [address] Dr. Caitlin Martinez Urea nitrogen/Creatinine [Mass ratio] 12.7 mg/mg Normal [facility] Comment on above: Performed By: #### D IRCMB, ABID #### [facility] [address] [place], [place] [address] Dr. Caitlin Martinez US PREG ANATOMY SINGLEon [...] by: DAVID BLACKMON Date: 2021-09-28 09:17 Normal [facility] CHEMISTRYOrdered By: SYSTEM SYSTEM on 06-21-2021 [place] [address] m[IU]/mL High 1 - 3 mIU/mL [facility] [place]R LUMBAR SPINE 2-3 [...] gas pattern is nonobstructive. There is a wycxeqwb-bw-jsfzd amount of stool burden. IMPRESSION: No malalignment. No acute compression deformity. Jbbqkqvj-jj-tqqgl amount of stool burden. [employer] Workstation ID: [id number] Dictated by: LUBA GARCÍA on [facility] Mar 05, 2020 4:09:51 PM EDT Transcribed by: KELVIN GUADALUPE on [facility] Mar 05, 2020 4:17:18 PM EDT Finalized by: LUBA GARCÍA on [facility] Mar 05, 2020 7:52:11 PM EDT Normal [facility] Comment on above: Order Comment: Injur y/Trauma or Illness?:Illness/Other How long have you had these symptoms (acute/chronic)?:Chronic Reason for exam?:low back pain History of cancer?:n Surgeries, chemotherapy, or radiation?:n Type of Exam?:Initial Additional signs and symptoms?:fibromyalgia XR Lumbar Spine 2-3 Views (S tandard)on 03-05-2020 No malalignment. No acute compression deformity. Gptgbwpf-fc-krkox amount of stool burden. [employer] Workstation ID: [id number] [facility] EXAMINATION: XR LUMBAR SPINE 2-3 [...] gas pattern is nonobstructive. There is a puarlrfv-zw-lywws amount of stool burden. [facility] Interface, Rad In Jose Luis Speechq - [...] gas pattern is nonobstructive. There is a dzvxfled-vw-smfpy amount of stool burden. IMPRESSION: No malalignment. No acute compression deformity. Crzqfhje-le-vykmm amount of stool burden. [employer] Workstation ID: [id number] [facility] CNOVon 10-28-2018 CNOV Office Visit (VASSMN ) SANDY GODINEZ ([id number]) 1995 F Date Time Provider Department 10/28/18 [...] Garcia MD REFERRING PROVIDER: Farrah Garcia MD [address] [facility] [address] Consult requested for an opinion regarding the [...] TIME: 12:44 PM Referring Provider: FARRAH GARCIA [[id number]] Allergies As of Date: 10/28/2018 (No Known [...] by WARREN RODRIGUEZ MD on 10/29/18 Normal [facility] PROGRESSon 10-28-2018 Protein mass conc HNO ID: [id number] Author: Warren Rodriguez Service: ? Author Type: Physician Type: Progress Notes Filed: 10/29/2018 3:03 PM Note Text: VASCULAR SURGERY INITIAL CONSULT SERVICE DATE: 10/28/2018 SERVICE TIME: 12:44 PM PRIMARY CARE PHYSICIAN: Farrah Garcia MD REFERRING PROVIDER: Farrah Garcia MD [address] [facility] [address] Consult requested for an opinion regarding the [...] October 28, 2018 TIME: 12:44 PM Normal [facility] Vital Signs Date Time Vital Sign Value Performing Clinician Faci lity 07-19-2023 09:31-0500 Body mass index (BMI) [Ratio] 26.79 kg/m2 [facility] Nurse [facility] 07-19-2023 09:31-0500 Body weight 73.03 kg [facility] Nurse [facility] 07-19-2023 09:31-0500 Diastolic blood pressure 72 mm[Hg] [facility] Nurse [facility] 07-19-2023 09:31-0500 Systolic blood pressure 118 mm[Hg] [facility] Nurse [facility] Encounters Encounter Date Encounter Type Care Provider Facility Start: 10-15-2023 End: 10-15-2023 ambulatory JOSE MIGUEL JUSTEN Not Available Start: 09-17-2023 End: 09-17-2023 ambulatory MICHAEL CHAN Not Available Start: 08-19-2023 End: 08-19-2023 ambulatory JOSE MIGUEL [...] OB Comment on above: GA: 9w0d Start: 07-08-2023 ambulatory Royer Layne acility:[facility] Start: 07-02-2023 End: 07-02-2023 ambulatory JOSE MIGUEL JUSTEN Not Available Start: 07-30-2022 End: 07-31-2022 ambulatory DUARTE VALDERRAMA [...] Start: 10-26-2021 End: 10-26-[address] LORENZANA MISElias Facility:[facility] Start: 10-26-2021 End: 10-27-[address] LORENZANA MISC Facility:[facility] Start: 10-24-2021 End: 10-24-[address] LORENZANA MISC Facility:[facility] Start: 09-28-2021 End: 09-29-[address] JOSE MIGUEL CAMPUZANO Facility:[facility] Start: 09-16-2021 End: 09-16-2021 ambulatory ILIR JUAREZ Facility:[facility] Start: 06-21-2021 End: 09-19-2021 Recurring [facility] Start: 03-05-2020 End: 03-06-2020 Patient encounter procedure [facility] Start: 03-05-2020 End: 03-05-2020 [facility] Work Phone: [facility] Diagnostics Comment on above: Chronic [...] encounter procedure 08/19/2023 11:10 AM EST Routine [facility] [address] [place] [id number] Jose Miguel Campuzano, DO [address] [place] [address] [facility] Start: 07-19-2023 End: 07-19-2024 ABO/Rh ABO/Rh Lab Routine Missed menses Expected: 07/19/2023 (Approximate), Expires: 07/19/2024 [facility] Comment on above: Expected: 07/19/2023 (Approximate), Expires: 07/19/2024 Start: 07-19-2023 End: 07-19-2024 Blood type and Indirect antibody screen panel - Blood Type and screen Lab Routine Missed menses Expected: 07/19/2023 (Approximate), Expires: 07/19/2024 [facility] Work Phone: Comment on above: Expected: 07/19/2023 (Approximate), Expires: 07/19/2024 Start: 07-19-2023 End: 07-19-2024 US Pelvis transvaginal US OB transvaginal Imaging Routine Missed menses Expected: 07/19/2023 (Approximate), Expires: 07/19/2024 [facility] Comment on above: Expected: 07/19/2023 (Approximate), Expires: 07/19/2024 Start: 02-16-2020 Influenza vaccinatio n given Sequential Influenza Vaccine (#1) [facility] Start: 2014 Hepatitis C antibody , confirmatory test Hepatitis C Screening [facility] Start: 08-31-2011 HIV screening HIV Screening [facility] Start: 08-31-2007 Vaccination for [place] papillomavirus HPV Vaccines (1 - 2-dose series) [facility] Start: 08-31-1999 History and physical examination, annual for health maintenance Wellness Visit [facility] Start: 1996 Screening for Chlamy tristan trachomatis Chlamydia Screening [facility] Start: 1996 Screening for malign ant neoplasm of cervix Pap Smear [facility] Start: 1996 Tetanus vaccination Tetanus: Every 1 0yrs [facility] Bacteria identified in Urine by Culture Urine culture Microbiology Routine Missed menses Ordered: 07/19/2023 [facility] Comment on above: Ordered: 07/19/2023 CBC W Auto Different ial panel - Blood CBC and differential Lab Routine Missed menses Ordered: 07/19/2023 [facility] Comment on above: Ordered: 07/19/2023 Hemoglobin A1c measurement Hemoglobin A1c Lab Routine Missed menses Ordered: 07/19/2023 [facility] Comment on above: Ordered: 07/19/2023 Hepatitis B virus knight rface Ag [Presence] in Serum or Plasma by Immunoassay Hepatitis B surface antigen Lab Routine Missed menses Ordered: 07/19/2023 [facility] Comment on above: Ordered: 07/19/2023 Hepatitis C virus Ab [Presence] in Serum or Plasma by Immunoassay Hepatitis C antibody Lab Routine Missed menses Ordered: 07/19/2023 [facility] Comment on above: Ordered: 07/19/2023 HIV-1/HIV-2 antigen/antibody combination immunoassay HIV-1 and HIV-2 antibodies Lab Routine Missed menses Ordered: 07/19/2023 [facility] Comment on above: Ordered: 07/19/2023 Reagin Ab [Presence] in Serum by RPR RPR Lab Routine Missed menses Ordered: 07/19/2023 [facility] Comment on above: Ordered: 07/19/2023 Rubella antibody, IgG Rubella an tibody, IgG Lab Routine Missed menses Ordered: 07/19/2023 [facility] Comment on above: Ordered: 07/19/2023 Payers Date Payer Category Payer Self-pay 2022 Medicaid [employer] [place] [id number] 2022-Present [address] [place] [address] [id number] 1995 Unknown [id number] 2.16.840.1.296210.3.579.2.903 1995 Unknown [id number] 2.16.840.1.229533.3.579.2.593 1996 Unknown [id number] 2.16.840.1.298607.3.579.2.593 1996 Unknown [id number] 2.16.840.1.472998.3.579.2.593 1996 Unknown [id number] 2.16.840.1.348663.3.579.2.593 1996 Unknown [id number] 2.16.840.1.301385.3.579.2.593 1996 Unknown [id number] 2.16.840.1.740928.3.579.2.593 1996 Unknown [id number] 2.16.840.1.930866.3.579.2.593 1996 Unknown [id number] 2.16.840.1.833301.3.579.2.593 1996 Unknown [id number] 2.16.840.1.332027.3.579.2.593 1996 Unknown [id number] 2.16.840.1.371999.3.579.2.593 1996 Unknown [id number] 2.16.840.1.629768.3.579.2.593 1996 Unknown [id number] 2.16.840.1.227844.3.579.2.593 1996 Unknown [id number] 2.16.840.1.476625.3.579.2.593 1996 Unknown [id number] 2.16.840.1.159630.3.579.2.593 1996 Unknown [id number] 2.16.840.1.204303.3.579.2.593 1996 Unknown [id number] 2.16.840.1.824042.3.579.2.593 1996 Unknown [id number] 2.16.840.1.128303.3.579.2.593 1996 Unknown [id number] 2.16.840.1.502767.3.579.2.593 1996 Unknown [id number] 2.16.840.1.784094.3.579.2.593 1996 Unknown [id number] 2.16.840.1.375039.3.579.2.593 1996 Unknown [id number] 2.16.840.1.178095.3.579.2.593 1996 Unknown [id number] 2.16.840.1.790093.3.579.2.1259 1996 Unknown [id number] 2.16.840.1.936024.3.579.2.1259 1996 Unknown [id number] 2.16.840.1.201847.3.579.2.1259 1996 Unknown [id number] 2.16.840.1.438041.3.579.2.1259 1996 Unknown [id number] 2.16.840.1.942088.3.579.2.1259 1959 Unknown [id number] 1959 Unknown [id number] Unknown COMMERCIAL COMME RCIAL MISCELLANEOUS [id number] Effective for all dates [id number] 1.2.840.394764.1.13.385.2.7.3. [id number] Unknown [id number] Unknown [id number] 2.16.840.1.222632.3.579.2.531 Social History Date Type Detail Facility [facility] Start: 12-07-[facility]22 [facility] Start: 12-07-2022 Tobacco smoking status NHIS Never smoked tobacco [facility] Start: 07-19-2023 Alcohol intake Current drinker of alcohol (finding) [facility] Start: 12-07-2022 History of Social function [facility] Start: 12-07-2022 Alcohol Comment 1-2 drinks less than monthly in the past year [facility] Start: 05-31-2023 [facility] Start: 1995 Sex Assigned At Female [facility] Start: 11-29-2022 Gender identity Identifies as female gender (finding) [facility] Start: 11-29-2022 Sexual orientation Heterosexual (finding) [facility] History of Present illness Narrative 07-19-2023 Cori [...] Procedure Laterality Date DILATION AND CURETTAGE 2018 [place] TONSILLECTOMY & ADENOIDECTOMY AGE 13/> 2015 WISDOM [...] sent for nausea to pharmacy. Pt desires [place] [facility] and understands to have it done at 10 weeks along w/her labs. Follow Up: Patient is to have labs drawn at directed and return to office for initial OB appointment with provider. Patient may call office as needed with any concerns or questions. Nurse Visit Completed by: Cori Daniel MA documented in this encounter [facility] Clinical Note 01-16-2022 Note Date & [...] by: Cecelia FOOTE Date: 2022-01-16 21:33 [facility] Clinical Note 01-16-2022 Note Date & [...] by: Cecelia FOOTE Date: 2022-01-16 21:33 [facility] Clinical Note 01-15-2022 Note Date & [...] authenticated by: IGOR DIAZ Date: 2022-01-15 10:10 [facility] Evaluation + Plan note Note Date & Type Note Facility Evaluation + Plan note No data available for this [facility] Evaluation [facility] Note Date & Type Note Facility Evaluation note Diagnosis Missed menses Nausea Nausea alone documented in this encounter [facility] Hospital Discharge instructions Note Date & Type Note Facility Hospital Discharge instructions No data available for this [facility] Summary Purpose Family History No Family History Records FoundNo Family History Records FoundNo Family History Records FoundNo Family History Records FoundNo Family History Records FoundNo Family History Records Found Advance Directives No Advanced Directives Records FoundDocuments on File Type Date Recorded 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 DATE CREATED AUTHOR AUTHOR'S ORGANIZ ATION 09/17/2023 [facility] DATE CREATED AUTHOR AUTHOR'S ORGANIZ ATION 10/16/2023 [facility] EPIC Reason for [...] BE BASED ON THE PRIMARY CLINICAL RECORDS. [email or web address] provides no warranty or guarantee of the accuracy or completeness of information in this document.
[2023-11-03 20:02] LABS: Bilirubin Urine NEGATIVE (NEGATIVE); Blood Urine NEGATIVE (NEGATIVE); Clarity Urine CLEAR (CLEAR); Color Urine LT. YELLOW (YELLOW); Glucose Urine UA NEGATIVE (NEGATIVE); Ketones Urine NEGATIVE (NEGATIVE); Leukocyte Esterase Urine TRACE (NEGATIVE); Nitrite Urine NEGATIVE (NEGATIVE); Protein Urine NEGATIVE (NEG/TRACE)
[2023-11-03 20:03] VITALS: BP 127/69; PULSE 83; TEMP 36.8
[2023-11-03 20:03] LABS: Urine Microscopic Indicated YES
[2023-11-03 20:09] LABS: Amorphous Sediment Urine MANY; Bacteria Urine LARGE #/HPF (NONE SEEN); Cast Seen? NONE SEEN #/LPF (NONE SEEN); Crystals Seen? Seen #/HPF (None Seen); Mucus Urine NONE SEEN (NONE SEEN); RBC Urine 0-2 #/HPF (0-2); Squamous Epithelial Cell Urine FEW #/LPF (NONE/RARE); Urine Culture Indicated YES; WBC Urine 0-2 #/HPF (NONE SEEN)
== END 2023-11-03 20:35 | disposition home or self-care (01) ==
PROVIDERS: Admitting Provider Obstetrics & Gynecology Gynecology; PCP Nurse Practitioner Family; Visit Provider Obstetrics & Gynecology Gynecology
DX: O26.893 Other specified pregnancy related conditions, third trimester (principal); R10.9 Unspecified abdominal pain; Z3A.24 24 weeks gestation of pregnancy
CPT/HCPCS: 59025; 81001; 87086; G0378; G0379

== ENCOUNTER 2023-11-18 12:20 | Observation (INO) | payer OTHER, SELFPAY ==
[2023-11-18 12:50] VITALS: BP 108/61; PULSE 73
[2023-11-18 13:35] LABS: Bilirubin Urine NEGATIVE (NEGATIVE); Blood Urine NEGATIVE (NEGATIVE); Clarity Urine CLEAR (CLEAR); Color Urine LT. YELLOW (YELLOW); Glucose Urine UA NEGATIVE (NEGATIVE); Ketones Urine NEGATIVE (NEGATIVE); Leukocyte Esterase Urine SMALL (NEGATIVE); Nitrite Urine NEGATIVE (NEGATIVE); Protein Urine NEGATIVE (NEG/TRACE)
[2023-11-18 13:45] LABS: Urine Microscopic Indicated YES
[2023-11-18 13:46] LABS: Bacteria Urine MODERATE #/HPF (NONE SEEN); Mucus Urine NONE SEEN (NONE SEEN); RBC Urine NONE SEEN #/HPF (0-2); Squamous Epithelial Cell Urine FEW #/LPF (NONE/RARE)
[2023-11-18 13:47] LABS: Urine Culture Indicated YES
[2023-11-18] MEDS: 0.9 % SODIUM CHLORIDE 500 ML 1000 ML IV (14:39)
[2023-11-18] MEDS: CEFAZOLIN SODIUM/DEXTROSE,ISO 2 GM/50 ML PIGGYBACK IV (14:41)
--- NOTE | 2023-11-18 15:01 | PC.NURSE ---
Pt arrives to [facility] at this time c/o front abdominal pain that radiates into chest and heart at times. Pt states she experiences abdominal tightness with pain at times. Pt rates pain 5/10. Pt denies pain with palpation. Pt states she experiences the feeling like she is going to pass out and feels hot with pain. Pt denies current chest pain or SOB. Pt states pain comes and go but sometimes is every 10min. Pt last bowel movement was the AM. Sexual intercourse 2 days. Pt denies urinary s/s. Pt reports active movement. Pt denies cxt's, leaking of fluid, and denies vaginal bleeding.
[2023-11-18] MEDS: 0.9 % SODIUM CHLORIDE 1,000 ML 125 ML IV (15:11)
[2023-11-18 15:53] LABS: Basophils Absolute Auto 0.1 10^3/uL (0.0-0.1); Basophils Percent Auto 0.6 % (0.2-2.0); Eosinophils Absolute Auto 0.2 10^3/uL (0.0-0.7); Eosinophils Percent Auto 2.3 % (0.9-7.0); Hematocrit 31.8 % (36.0-48.0); Hemoglobin 10.5 g/dL (12.0-16.0); Immature Granulocytes Abs Auto 0.05 10^3/uL (0.00-0.03); Immature Granulocytes Pct Auto 0.6 % (0.0-0.5); Lymphocytes Percent Auto 22.4 % (20.5-60.0); Mean Corpuscular Hemoglobin 30.8 pg (26.7-34.0); Mean Corpuscular Volume 93.3 fL (81.0-99.0); Mean Platelet Volume 9.3 fL (9.5-13.5); Monocytes Absolute Auto 0.6 10^3/uL (0.3-0.8); Monocytes Percent Auto 6.1 % (1.7-12.0); Neutrophils Absolute Auto 6.1 10^3/uL (1.4-6.5); Platelet Count 289 10^3/uL (150-450); Red Blood Count 3.41 10^6/uL (4.20-5.40); Red Cell Distribution Width 13.5 % (11.0-15.0)
--- NOTE | 2023-11-18 16:39 | US_ITS ---
[address] [id number] Patient Name: SANDY GODINEZ MRN: [id number] date: 1995 Sex: F Assigned Patient Location: [facility] Current Patient Location: Accession/Order Number: [id number] Exam Date: 11/18/2023 17:30 Report Date: 11/18/2023 20:46 At the request of: JOSE MIGUEL BOATENG Procedure: US right upper quadrant EXAM: US right upper quadrant HISTORY: Right upper quadrant pain, 26 weeks TECHNIQUE: Ultrasound of the right upper quadrant abdomen. COMPARISON: CT abdomen and pelvis 01/15/2022 FINDINGS: Pancreas is not well visualized. Liver: Normal in size, contour and echogenicity. No intrahepatic biliary ductal dilatation. Main portal vein is patent with appropriate direction of flow. Gallbladder: There is a stone seen near the gallbladder neck measuring up to 0.9 centimeters. No associated wall thickening or pericholecystic fluid Common bile duct: Normal in diameter, measuring cm. Right kidney: Normal in size and echogenicity measuring 10.8 cm. No hydronephrosis or renal calculus. Miscellaneous:Sonographic Manning's sign is absent US/US right upper quadrant IMPRESSION: Stone seen near the gallbladder neck measuring up to 0.9 centimeters which may represent an impacted stone. No associated wall thickening or pericholecystic fluid. No sonographic Manning's sign. No convincing evidence of acute cholecystitis at this time. Recommend close clinical follow-up. Electronically authenticated by: CHYNA SANDOVAL Date: 11/18/2023 20:46
[2023-11-18 16:55] VITALS: BP 108/59; PULSE 67; TEMP 36.6
[2023-11-18] MEDS: ACETAMINOPHEN 500 MG TABLET 1000 MG PO (17:22)
== END 2023-11-18 19:29 | disposition home or self-care (01) ==
PROVIDERS: Admitting Provider Obstetrics & Gynecology; PCP Nurse Practitioner Family; Visit Provider Obstetrics & Gynecology
DX: O26.892 Other specified pregnancy related conditions, second trimester (principal); R10.9 Unspecified abdominal pain; Z3A.26 26 weeks gestation of pregnancy
CPT/HCPCS: 36415; 59025; 76705; 81001; 85025; 87086; 96365; G0378; G0379

== ENCOUNTER 2023-11-22 08:34 | Outpatient (OUT) | payer OTHER, SELFPAY ==
[2023-11-22 10:13] LABS: Basophils Absolute Auto 0.1 10^3/uL (0.0-0.1); Basophils Percent Auto 0.6 % (0.2-2.0); Eosinophils Absolute Auto 0.3 10^3/uL (0.0-0.7); Hematocrit 32.8 % (36.0-48.0); Hemoglobin 10.5 g/dL (12.0-16.0); Immature Granulocytes Abs Auto 0.06 10^3/uL (0.00-0.03); Immature Granulocytes Pct Auto 0.6 % (0.0-0.5); Lymphocytes Absolute Auto 2.3 10^3/uL (1.2-3.8); Lymphocytes Percent Auto 23.4 % (20.5-60.0); Mean Corpuscular Hemoglobin 29.6 pg (26.7-34.0); Mean Corpuscular Volume 92.4 fL (81.0-99.0); Mean Platelet Volume 9.6 fL (9.5-13.5); Monocytes Absolute Auto 0.7 10^3/uL (0.3-0.8); Neutrophils Absolute Auto 6.4 10^3/uL (1.4-6.5); Neutrophils Percent Auto 65.4 % (43.0-75.0); Platelet Count 339 10^3/uL (150-450); Red Blood Count 3.55 10^6/uL (4.20-5.40); Red Cell Distribution Width 13.3 % (11.0-15.0); White Blood Count 9.8 10^3/uL (4.0-11.0)
[2023-11-22 11:38] LABS: Glucose 1 Hour 113 mg/dL (<130)
== END 2023-11-22 08:35 | disposition home or self-care (01) ==
LOC: LAB 08:35
PROVIDERS: PCP Nurse Practitioner Family; Visit Provider Obstetrics & Gynecology
DX: Z13.1 Encounter for screening for diabetes mellitus (principal)
CPT/HCPCS: 36415; 82950; 85025

== ENCOUNTER 2023-11-29 07:38 | Outpatient (RCR) | payer OTHER, SELFPAY ==
[2023-11-29 11:10] VITALS: BP 114/67; PULSE 89; O2SAT 97
[2023-11-29] MEDS: RHO(D) IMMUNE GLOBULIN 1,500 UNIT SYRINGE 1500 UNIT IM (11:12)
--- NOTE | 2023-11-29 11:24 | PC.NURSE ---
Patient is here for Rhogam, Rh negative, vitals obtained and stable. She tolerated injection well and denies any issues or complaints. She was discharged home ambulatory.
== END 2023-11-29 11:27 | disposition home or self-care (01) ==
LOC: INF 07:38
PROVIDERS: PCP Nurse Practitioner Family; Visit Provider Obstetrics & Gynecology
DX: O26.893 Other specified pregnancy related conditions, third trimester (principal); Z67.91 Unspecified blood type, Rh negative; Z3A.00 Weeks of gestation of pregnancy not specified
CPT/HCPCS: 36415; 86850; 86900; 86901; 96372; J2790

== ENCOUNTER 2023-12-05 08:54 | Outpatient (OUT) | payer OTHER, SELFPAY ==
--- NOTE | 2023-12-05 08:57 | US_ITS ---
[address] [address] Patient Name: SANDY GODINEZ MRN: [id number] date: 1995 Sex: F Assigned Patient Location: [facility] Current Patient Location: [facility] Accession/Order Number: [id number] Exam Date: 12/05/2023 08:57 Report Date: 12/05/2023 13:40 At the request of: JOSE MIGUEL BOATENG Procedure: US OB growth EXAMINATION: US OB growth HISTORY: 2 VESSEL CORD COMPARISON: Ultrasound OB anatomy 10/15/2023 FINDINGS: Heart Rate: 130 bpm Amniotic Fluid Volume: 17.0 cm Number: 1 Position: Cephalic BIOMETRY: BPD: 7.0 cm; 28 weeks 1 day; 16% HC: 26.1 cm; 28 weeks 2 days; 9% AC: 23.9 cm; 28 weeks 1 day; 23% FL: 5.3 cm; 20 weeks 2 days; 20% EFW: 1192 g; 17.3% FL/AC: 22.35 FL/BPD: 76.25 HC/AC: 1.0 GESTATIONAL AGE: Age by EDC: 20 weeks 6 days NOVA by EDC: 02/21/2024 Age by US: 20 weeks 2 days NOVA by US: 02/25/2024 US/US OB growth IMPRESSION: 1. Single live intrauterine with growth detailed above. Electronically authenticated by: DAVID BLACKMON Date: 12/05/2023 13:40
--- OUTSIDE RECORDS SUMMARY | 2023-12-05 09:12 | XMS_ITS | CCD ---
Author Organization [facility] Care Team Providers Care State Historical [employer] Director Name Role Phone Farrah Garcia Primary Care [...] Admitting Unavailable KARASIMilka, DR MIMS Attending Unavailable KARASIMilka, DR MIMS Consulting Unavailable KARBELIA, DR MIMS Admitting Unavailable MISC, DR LORENZANA Primary Care Unavailable JUSTEN, DR GILLESPIE Consulting Unavailable ZIEBER, DR DAVID Sanchez Consulting Unavailable NILL, DR GARLAND Consulting Unavailable GIOR DIAZ Consulting Unavailable TROTTI, GIROLAMO Consulting Unavailable [...] DR LORENZANA Primary Care Unavailable JUSTEN, DR JOSE MIGUEL Consulting Unavailable Unavailable Primary Care Provider UnavailRoyer Thompson Attending Unavailab Royer Watts Admitting [facility]availab [facility] Unavailable JOSE MIGUEL CAMPUZANO Referring Unavailable BERT RDZ Attending Unavailable JOSE MIGUEL CAMPUZANO Referring Unavailable JOSE MIGUEL CAMPUZANO Attending Unavailable JOSE MIGUEL CAMPUZANO Attending Unavailable MICHAEL CHAN Attending Unavailable JOSE MIGUEL CAMPUZANO Attending Unavailable JOSE MIGUEL CAMPUZANO Attending Unavailable Allergies Allergy Classification Reported Allergen(s) Allergy Type Date of Onset Reaction(s) Facility Unclassified (1 source) ADHESIVE TAPE-SILICONES; 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: [ADHESIVE TAPE-SILICONES] Propensity to adverse reactions to drug (disorder) 4 [facility] (1 source) [facility] Drug Allergy 9 [facility] Repository (2 sources) Wound Dressing Adhesive Drug [...] Classification Problem Date Documented Da te Episodic/Chronic Cardiac and circulatory congenital anomalies (1 source) Congenital absence and hypoplasia of umbilical artery; 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 Deficiency and other anemia (5 sources) Anemia, [...] unspecified] Onset: 10-24-2021 Episodic Other complications of ; puerperium affecting management of mother (1 source) Maternal care for (suspected) abnormality and damage, unspecified, not applicable or unspecified; 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: [Maternal care for (suspected) abnormality and damage, unspecified, not applicable or unspecified] Onset: 11-07-2023 Episodic Other complications of (1 source) A/N care: poor obstetric history; 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: [Supervision of with other poor reproductive or obstetric history, unspecified trimester] Episodic Other complications of (1 source) Malformation of placenta, unspecified, unspecified trimester; 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: [Malformation of placenta, unspecified, unspecified trimester] Onset: 11-07-2023 Episodic Other screening for suspected conditions (not mental disorders or infectious disease) (14 sources) Encounter for screening for malignant neoplasm of cervix; 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: [Encounter for screening for diabetes mellitus] Onset: 09-28-2021 Episodic Residual codes; unclassified (1 source) 24 weeks gestation of ; 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: [24 weeks gestation of ] Onset: 11-07-2023 Episodic Residual codes; unclassified (1 source) Family history of other endocrine, nutritional and metabolic diseases; 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: [Family history of other endocrine, nutritional and metabolic diseases] Onset: 11-07-2023 Episodic Spondylosis; intervertebral disc disorders; other back problems (1 source) Chronic low back pain; 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: [Chronic low back pain, unspecified back pain laterality, unspecified whether sciatica present] Episodic Unclassified (1 source) CONTACT W/AND (SUSP) EXPOS COVID-19; 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: [CONTACT W/AND (SUSP) EXPOS COVID-19] Onset: 02-15-2022 Unclassified (1 source) Vessel cord Onset: 11-07-2023 Past or Other Problems Problem Classification Problem [...] 02-15-2022 Episodic Other aftercare (1 source) Other 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 (current) 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; 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] Onset: 02-05-2022 Episodic Other [...] WITH AUTO DIFFon BASOPHILS ABSOLUTE AUTO 0.1 [facility] Basophils/100 WBC (Bld) 0.7 % 0.2 - 2.0 % [facility] Eosinophils/100 WBC (Bld) 2.6 % 0.9 - 7.0 % [facility] Erythrocyte distribution width (RBC) [Ratio] 13.4 % 11.0 - 15.0 % [facility] Hematocrit (Bld) [Volume fraction] 39.0 % 36.0 - 48.0 % [facility] Hemoglobin (Bld) [Mass/Vol] 12.8 g/dL 12.0 - 16.0 g/dL [facility] IMMATURE GRANULOCYTES ABS AUTO 0.01 [facility] Immature granulocytes/100 WBC (Bld) 0.1 % 0.0 - 0.5 % [facility] LYMPHOCYTES ABSOLUTE AUTO 2.2 [facility] Lymphocytes/100 WBC (Bld) 26.1 % 20.5 - 60.0 % [facility] MCH (RBC) [Entitic mass] 28.6 pg 26.7 - 34.0 pg [facility] MCHC (RBC) [Mass/Vol] 32.8 g/dL 29.9 - 35.2 g/dL [facility] MCV (RBC) [Entitic vol] 87.2 fL 81.0 - 99.0 fL [facility] MONOCYTES ABSOLUTE AUTO 0.5 [facility] Monocytes/100 WBC (Bld) 5.7 % 1.7 - 12.0 % [facility] NEUTROPHILS ABSOLUTE AUTO 5.5 [facility] Neutrophils/100 WBC (Bld) 64.8 % 43.0 - 75.0 % [facility] Platelet mean volume (Bld) [Entitic vol] 10.1 fL 9.5 - 13.5 fL [facility] TBH EO # 0.2 [facility] PLT 340 [facility] RBC 4.47 [facility] WBC 8.4 [facility] HCG ( test) Ql (U)o n 07-19-2023 Interpretation and review of laboratory results Abnormal [facility] Preg Test, Ur Positive [facility] Urinalysis macro (dipstick) panel (U)on 07-19-2023 Bilirubin, UA Negative Negative - 4(70) +++ mg/dL [facility] Blood, UA Positive Negative - 50 Anselmo/mcL [facility] Comment on above: moderate Clarity, UA Clear [facility] Color, UA [place] [facility] Glucose, UA Negative Negative - 1999(110) ++++ mg/dL [facility] Interpretation and review of laboratory results Abnormal [facility] Ketones, UA Positive Negative - 160(16) ++++ mg/dL [facility] Comment on above: trace Leukocytes, UA Positive Negative - 500+++ Monik/mcL [facility] Comment on above: small Nitrite, UA Negative Negative - Positive [facility] pH, UA 6.0 5 - 9 [facility] Protein, UA Positive Negative - 1999(20) ++++ mg/dL [facility] Comment on above: 30 Spec Grav, UA 1.030 1 - 1.03 [facility] Urobilinogen, UA 1.0 0.2 - 12 mg/dL [facility] In office Testingon 09-07-19 23 In office Testing [id number]# 1.00CD:127 [facility] CBC AUTO DIFFon 07-30-2022 BASO # 0.1 103/ul Normal 0.0-0.1 [facility] Comment on above: Performed By: #### U RCX #### [facility] [address] [place] [address] Dr. Caitlin Martinez Basophils/100 WBC (Bld) 1.1 % Normal 0.2-2.0 [facility] Comment on above: Performed By: #### U RCX #### [facility] [address] [place] [address] Dr. Caitlin Martinez EO # 0.3 103/ul Normal 0.0-0.7 [facility] Comment on above: Performed By: #### U RCX #### [facility] [address] [place] [address] Dr. Caitlin Martinez Eosinophils/100 WBC (Bld) 4.7 % Normal 0.9-7.0 [facility] Comment on above: Performed By: #### U RCX #### [facility] [address] [place] [address] Dr. Caitlin Martinez Erythrocyte distribution width (RBC) [Ratio] 14.7 % Normal 11.0-15.0 [facility] Comment on above: Performed By: #### U RCX #### [facility] [address] [place] [address] Dr. Caitlin Martinez Hematocrit (Bld) [Volume fraction] 39.3 % Normal 36.0-48.0 [facility] Comment on above: Performed By: #### U RCX #### [facility] [address] [place] [address] Dr. Caitlin Martinez Hemoglobin (Bld) [Mass/Vol] 12.7 g/dL Normal 12.0-16.0 [facility] Comment on above: Performed By: #### U RCX #### [facility] [address] [place] [address] Dr. Caitlin Martinez IG # 0.02 10e3/ul Normal 0.00-0.03 [facility] Comment on above: Performed By: #### U RCX #### [facility] [address] [place] [address] Dr. Caitlin Martinez IG % 0.3 % Normal 0.0-0.5 [facility] Comment on above: Performed By: #### U RCX #### [facility] [address] [address] [address] Caitlin Martinez LYMPH # 2.5 103/ul Normal 1.2-3.8 [facility] Comment on above: Performed By: #### U RCX #### [facility] [address] [place] [address] Dr. Caitlin Martinez Lymphocytes/100 WBC (Bld) 34.5 % Normal 20.5-60.0 [facility] Comment on above: Performed By: #### U RCX #### [facility] [address] [place] [address] Dr. Caitlin Martinez MANUAL DIFF REQ NO Normal [facility] Comment on above: Performed By: #### U RCX #### [facility] [address] [place] [address] Dr. Caitlin Martinez MCH (RBC) [Entitic mass] 27.3 pg Normal 26.7-34.0 [facility] Comment on above: Performed By: #### U RCX #### [facility] [address] [place] [address] Dr. Caitlin Martinez MCHC (RBC) [Mass/Vol] 32.3 g/dL Normal 29.9-35.2 [facility] Comment on above: Performed By: #### U RCX #### [facility] [address] [place] [address] Dr. Caitlin Martinez MCV (RBC) [Entitic vol] 84.5 fL Normal 81.0-99.0 [facility] Comment on above: Performed By: #### U RCX #### [facility] [address] [place] [address] Dr. Caitlin Martinez MONO # 0.5 103/ul Normal 0.3-0.8 [facility] Comment on above: Performed By: #### U RCX #### [facility] [address] [address] [address] Caitlin Martinez Monocytes/100 WBC (Bld) 7.3 % Normal 1.7-12.0 [facility] Comment on above: Performed By: #### U RCX #### [facility] [address] [address] [address] Caitlin Martinez NEUT # 3.8 103/ul Normal 1.4-6.5 [facility] Comment on above: Performed By: #### U RCX #### [facility] [address] [address] [address] Caitlin Martinez Neutrophils/100 WBC (Bld) 52.1 % Normal 43.0-75.0 [facility] Comment on above: Performed By: #### U RCX #### [facility] [address] [place] [address] Dr. Caitlin Martinez Platelet mean volume (Bld) [Entitic vol] 9.0 fL Critically low 9.5-13.5 [facility] Comment on above: Performed By: #### U RCX #### [facility] [address] [place] [address] Dr. Caitlin Martinez PLT 368 103/ul Normal 150-450 [facility] Comment on above: Performed By: #### U RCX #### [facility] [address] [place] [address] Dr. Caitlin Martinez RBC 4.65 106/ul Normal 4.20-5.40 [facility] Comment on above: Performed By: #### U RCX #### [facility] [address] [place] [address] Dr. Caitlin Martinez WBC 7.2 103/ul Normal 4.0-11.0 [facility] Comment on above: Performed By: #### U RCX #### [facility] [address] [place] [address] Dr. Caitlin Martinez IRONon 07-30-2022 Iron [Mass/Vol] 43.0 ug/dL Critically low 50.0-170.0 [facility] Comment on above: Performed By: #### U RCX #### [facility] [address] [address] [address] Caitlin Martinez PAP ACOG PANEL 2: 21 to 30on 07-30-2022 . . Normal [facility] Comment on above: Performed By: #### U RCX #### [facility] [address] [address] [address] Caitlin Martinez Age Gdln ACOG Testing 21-29 [facility] Comment on above: Performed By: #### U RCX #### [facility] [address] [address] [address] Caitlin Martinez DIAGNOSIS: Comment [facility] Comment on above: Result Comment: NEGA TIVE FOR INTRAEPITHELIAL LESION OR MALIGNANCY. Performed By: #### U RCX #### [facility] [address] [place] [address] Dr. Caitlin Martinez Methodology: Comment [facility] Comment on above: Result Comment: This liquid based ThinPrep(R) pap test was screened with the use of an image guided system. Performed By: #### U RCX #### [facility] [address] [place] [address] Dr. Caitlin Martinez Note: Comment [facility] Comment on above: Result Comment: The Pap smear is a screening test designed to aid in the detection of premalignant and malignant conditions of the uterine cervix. It is not a diagnostic procedure and should not be used as the sole means of detecting cervical cancer. Both false-positive and false-negative reports do occur. . Performed By: #### U RCX #### [facility] [address] [address] [address] Caitlin Martinez Performed by: Comment Normal [facility] Comment on above: Result Comment: Bhavna Cormier, Bilingual Instructor (ASCP) Performed By: #### U RCX #### [facility] [address] [place] [address] Dr. Caitlin Martinez Reflex Criteria: Comment [facility] Comment on above: Result Comment: The HPV DNA reflex criteria were not met with this specimen result therefore, no HPV testing was performed. . Performed By: #### U RCX #### [facility] [address] [place] [address] Dr. Caitlin Martinez Specimen adequacy: Comment Normal [facility] Comment on above: Result Comment: Sati sfactory for evaluation. Endocervical and/or squamous metaplastic cells (endocervical component) are present. Performed By: #### U RCX #### [facility] [address] [place] [address] Dr. Caitlin Martinez INSULINon 04-19-2022 Insulin 9.1 uIU/mL Normal 2.6-24.9 [facility] Comment on above: Performed By: #### I HORACIO #### [facility] [address] [place] [address] Dr. Caitlin Martinez CBC AUTO DIFFon 04-18-2022 BASO # 0.1 103/ul Normal 0.0-0.1 [facility] Comment on above: Performed By: #### U RCX #### [facility] [address] [place] [address] Dr. Caitlin Martinez Basophils/100 WBC (Bld) 1.0 % Normal 0.2-2.0 [facility] Comment on above: Performed By: #### U RCX #### [facility] [address] [place] [address] Dr. Caitlin Martinez EO # 0.3 103/ul Normal 0.0-0.7 [facility] Comment on above: Performed By: #### U RCX #### [facility] [address] [place] [address] Dr. Caitlin Martinez Eosinophils/100 WBC (Bld) 4.1 % Normal 0.9-7.0 [facility] Comment on above: Performed By: #### U RCX #### [facility] [address] [place] [address] Dr. Caitlin Martinez Erythrocyte distribution width (RBC) [Ratio] 16.0 % Critically high 11.0-15.0 [facility] Comment on above: Performed By: #### U RCX #### [facility] [address] [place] [address] Dr. Caitlin Martinez Hematocrit (Bld) [Volume fraction] 35.7 % Critically low 36.0-48.0 [facility] Comment on above: Performed By: #### U RCX #### [facility] [address] [place] [address] Dr. Caitlin Martinez Hemoglobin (Bld) [Mass/Vol] 10.9 g/dL Critically low 12.0-16.0 [facility] Comment on above: Performed By: #### U RCX #### [facility] [address] [address] [address] Caitlin Martinez IG # 0.07 10e3/ul Critically high 0.00-0.03 [facility] Comment on above: Performed By: #### U RCX #### [facility] [address] [place] [address] Dr. Caitlin Martinez IG % 1.0 % Critically high 0.0-0.5 [facility] Comment on above: Performed By: #### U RCX #### [facility] [address] [place] [address] Dr. Caitlin Martinez LYMPH # 2.3 103/ul Normal 1.2-3.8 [facility] Comment on above: Performed By: #### U RCX #### [facility] [address] [place] [address] Dr. Caitlin Martinez Lymphocytes/100 WBC (Bld) 31.4 % Normal 20.5-60.0 [facility] Comment on above: Performed By: #### U RCX #### [facility] [address] [place] [address] Dr. Caitlin Martinez MANUAL DIFF REQ NO Normal [facility] Comment on above: Performed By: #### U RCX #### [facility] [address] [place] [address] Dr. Caitlin Martinez MCH (RBC) [Entitic mass] 24.8 pg Critically low 26.7-34.0 [facility] Comment on above: Performed By: #### U RCX #### [facility] [address] [place] [address] Dr. Caitlin Martinez MCHC (RBC) [Mass/Vol] 30.5 g/dL Normal 29.9-35.2 [facility] Comment on above: Performed By: #### U RCX #### [facility] [address] [place] [address] Dr. Caitlin Martinez MCV (RBC) [Entitic vol] 81.1 fL Normal 81.0-99.0 [facility] Comment on above: Performed By: #### U RCX #### [facility] [address] [place] [address] Dr. Caitlin Martinez MONO # 0.5 103/ul Normal 0.3-0.8 [facility] Comment on above: Performed By: #### U RCX #### [facility] [address] [place] [address] Dr. Caitlin Martinez Monocytes/100 WBC (Bld) 6.6 % Normal 1.7-12.0 [facility] Comment on above: Performed By: #### U RCX #### [facility] [address] [place] [address] Dr. Caitlin Martinez NEUT # 4.1 103/ul Normal 1.4-6.5 [facility] Comment on above: Performed By: #### U RCX #### [facility] [address] [place] [address] Dr. Caitlin Martinez Neutrophils/100 WBC (Bld) 55.9 % Normal 43.0-75.0 [facility] Comment on above: Performed By: #### U RCX #### [facility] [address] [place] [address] Dr. Catilin Martinez Platelet mean volume (Bld) [Entitic vol] 9.4 fL Critically low 9.5-13.5 [facility] Comment on above: Performed By: #### U RCX #### [facility] [address] [place] [address] Dr. Caitlin Martinez PLT 369 103/ul Normal 150-450 [facility] Comment on above: Performed By: #### U RCX #### [facility] [address] [place] [address] Dr. Caitlin Martinez RBC 4.40 106/ul Normal 4.20-5.40 [facility] Comment on above: Performed By: #### U RCX #### [facility] [address] [place] [address] Dr. Caitlin Martinez WBC 7.3 103/ul Normal 4.0-11.0 [facility] Comment on above: Performed By: #### U RCX #### [facility] [address] [place] [address] Dr. Caitlin Martinez FREE THYROXINE INDEX T7on FTI 2.20 Normal 1.30-4.50 [facility] Comment on above: Performed By: #### I HORACIO #### [facility] [address] [place] [address] Dr. Caitlin Martinez T3U 29.0 % Critically low 30.0-39.[address] [facility] Comment on above: Performed By: #### I HORACIO #### [facility] [address] [place] [address] Dr. Caitlin Martinez T4 [Mass/Vol] 7.60 ug/dL Normal 4.80-13.90 [facility] Comment on above: Performed By: #### I HORACIO #### [facility] [address] [place] [address] Dr. Caitlin Martinez GLYCOHEMOGLOBIN A1Con 2021 ADA RECOMMENDATION SEE BELOW Normal [facility] Comment on above: Result Comment: ADA RECOMMENDED LIMIT 4.0 - 6.0 ADA THERAPEUTIC TARGET < 7.0 ACTION SUGGESTED > 7.0 Performed By: #### U RCX #### [facility] [address] [place] [address] Dr. Caitlin Martinez Glucose [Mass/Vol] 97 mg/dL Normal [facility] Comment on above: Performed By: #### U RCX #### [facility] [address] [place] [address] Dr. Caitlin Martinez HbA1c (Bld) [Mass fraction] 5.0 % Normal 4.5-6.2 [facility] Comment on above: Performed By: #### U RCX #### [facility] [address] [address] [address] Caitlin Martinez IRONon 04-18-2022 Iron [Mass/Vol] 35.0 ug/dL Critically low 50.0-170.0 [facility] Comment on above: Performed By: #### I HORACIO #### [facility] [address] [address] [address] Caitlin Martinez LIPID PROFILEon 04-18-2022 CHOL-HDL RATIO NORM SEE BELOW Normal [facility] Comment on above: Result Comment: 3.3 - 4.4 LOW RISK 4.4 - 7.1 AVERAGE RISK 7.1 - 11.0 MODERATE RISK >11.0 HIGH RISK Performed By: #### I HORACIO #### [facility] [address] [address] [address] Caitlin Martinez Cholesterol [Mass/Vol] 221 mg/dL Critically high <=200 [facility] Comment on above: Performed By: #### I HORACIO #### [facility] [address] [address] [address] Caitlin Martinez Cholesterol in HDL [Mass/Vol] 67 mg/dL Critically high 40-60 [facility] Comment on above: Performed By: #### I HORACIO #### [facility] [address] [address] [address] Caitlin Martinez Cholesterol in LDL [Mass/Vol] 142.4 mg/dL Normal [facility] Comment on above: Performed By: #### I HORACIO #### [facility] [address] [address] [address] Caitlin Martinez Cholesterol.total/Cho lesterol in HDL [Mass ratio] 3.3 {ratio} Normal [facility] Comment on above: Performed By: #### I HORACIO #### [facility] [address] [address] [address] Caitlin Martinez HDL NORMAL > or = 60 mg/dl - LO W CARDIOVASCULAR RISK <40 mg/dl - HIGH CARDIOVASCULAR RISK Normal [facility] Comment on above: Performed By: #### I HORACIO #### [facility] [address] [address] [address] Caitlin Martinez LDL CALC NORMAL SEE BELOW Normal [facility] Comment on above: Result Comment: <100 mg/dl OPTIMAL 100 - 129 mg/dl NEAR OR ABOVE OPTIMAL 130 - 159 mg/dl BORDERLINE HIGH 160 - 189 mg/dl HIGH >190 mg/dl VERY HIGH Performed By: #### I HORACIO #### [facility] [address] [address] [address] Caitlin Martinez Triglyceride [Mass/Vol] 58 mg/dL Normal <=150 [facility] Comment on above: Performed By: #### I HORACIO #### [facility] [address] [address] [address] Caitlin Martinez VLDL CALC 11.6 mg/dL Normal [facility] Comment on above: Performed By: #### I HORACIO #### [facility] [address] [place] [address] Dr. Caitlin Martinez PROF 14(COMP METB)on 022 Albumin [Mass/Vol] 3.8 g/dL Normal 3.4-5.0 [facility] Comment on above: Performed By: #### I HORACIO #### [facility] [address] [place] [address] Dr. Caitlin Martinez Albumin/Globulin [Mass ratio] 1.1 {ratio} Normal [facility] Comment on above: Performed By: #### I HORACIO #### [facility] [address] [place] [address] Dr. Caitlin Martinez ALP [Catalytic activity/Vol] 132 U/L Critically high 46-116 [facility] Comment on above: Performed By: #### I HORACIO #### [facility] [address] [place] [address] Dr. Caitlin Martinez ALT [Catalytic activity/Vol] 55 U/L Normal 14-59 [facility] Comment on above: Performed By: #### I HORACIO #### [facility] [address] [place] [address] Dr. Caitlin Martinez Anion gap [Moles/Vol] 12.6 mmol/L Normal [place] Comment on above: Performed By: #### I HORACIO #### [facility] [address] [place] [address] Dr. Caitlin Martinez AST [Catalytic activity/Vol] 27 U/L Normal 15-37 [facility] Comment on above: Performed By: #### I HORACIO #### [facility] [address] [address] [address] Caitlin Martinez Bilirubin [Mass/Vol] 0.6 mg/dL Normal 0.2-1.0 [facility] Comment on above: Performed By: #### I HORACIO #### [facility] [address] [address] [address] Caitlin Martinez Calcium [Mass/Vol] 9.1 mg/dL Normal 8.5-10.1 [facility] Comment on above: Performed By: #### I HORACIO #### [facility] [address] [place] [address] Dr. Caitlin Martinez Chloride [Moles/Vol] 106 mmol/L Normal 98-107 [facility] Comment on above: Performed By: #### I HORACIO #### [facility] [address] [place] [address] Dr. Caitlin Martinez CO2 [Moles/Vol] 26.5 mmol/L Normal 21.0-32.0 [facility] Comment on above: Performed By: #### I HORACIO #### [facility] [address] [place] [address] Dr. Caitlin Martinez Creatinine [Mass/Vol] 0.63 mg/dL Normal 0.55-1.02 [facility] Comment on above: Performed By: #### I HORACIO #### [facility] [address] [place] [address] Dr. Caitlin Martinez EGFR-AF BARBADIAN >60 Normal >=60 [facility] Comment on above: Performed By: #### I HORACIO #### [facility] [address] [place] [address] Dr. Caitlin Martinez EGFR-NON AF BARBADIAN >60 Normal >=60 [facility] Comment on above: Performed By: #### I HORACIO #### [facility] [address] [place] [address] Dr. Caitlin Martinez Globulin (S) [Mass/Vol] 3.6 g/dL Normal [facility] Comment on above: Performed By: #### I HORACIO #### [facility] [address] [address] [address] Caitlin Martinez Glucose [Mass/Vol] 98 mg/dL Normal 74-106 [facility] Comment on above: Performed By: #### I HORACIO #### [facility] [address] [address] [address] Caitlin Martinez Potassium [Moles/Vol] 4.1 mmol/L Normal 3.5-5.1 [facility] Comment on above: Performed By: #### I HORACIO #### [facility] [address] [address] [address] Caitlin Martinez Protein [Mass/Vol] 7.4 g/dL Normal 6.4-8.2 [facility] Comment on above: Performed By: #### I HORACIO #### [facility] [address] [address] [address] Caitlin Martinez Sodium [Moles/Vol] 141 mmol/L Normal 136-145 [facility] Comment on above: Performed By: #### I HORACIO #### [facility] [address] [address] [address] Caitlin Martinez Urea nitrogen [Mass/Vol] 9.0 mg/dL Normal 7.0-18.0 [facility] Comment on above: Performed By: #### I HORACIO #### [facility] [address] [address] [address] Caitlin Martinez Urea nitrogen/Creatinine [Mass ratio] 14.3 mg/mg Normal [facility] Comment on above: Performed By: #### I HORACIO #### [facility] [address] [address] [address] Caitlin Martinez TSHon 04-18-2022 TSH 1.349 uIU/mL Normal 0.358-3.740 [facility] Comment on above: Performed By: #### I HORACIO #### [facility] [address] [address] [address] Caitlin Martinez ANTIBODY ID PANELon 02-15-20 22 ANTIBODY ID PANEL Antibody ID Anti-D Blood Bank Notes most likely due to Rhogam given on 12/01/21 Normal [facility] Comment on above: Performed By: #### D IRCMB, ABID #### [facility] [address] [place] [address] Dr. Caitlin Martinez CTA CHEST WO W [...] GAGANDEEP WHEELER Date: 2022-02-10 22:55 Normal [facility] CBC AUTO DIFFon 02-10-2022 BASO # 0.1 103/ul Normal 0.0-0.1 [facility] Comment on above: Performed By: #### C BC #### [facility] [address] [place] [address] Dr. Caitlin Martinez Basophils/100 WBC (Bld) 0.4 % Normal 0.2-2.0 [facility] Comment on above: Performed By: #### C BC #### [facility] [id number] Caitlin Martinez EO # 0.5 103/ul Normal 0.0-0.7 [facility] Comment on above: Performed By: #### C BC #### [facility] [address] [place] [address] Dr. Caitlin Martinez Eosinophils/100 WBC (Bld) 4.2 % Normal 0.9-7.0 [facility] Comment on above: Performed By: #### C BC #### [facility] [address] [address] [address] Caitlin Martinez Erythrocyte distribution width (RBC) [Ratio] 14.7 % Normal 11.0-15.0 [facility] Comment on above: Performed By: #### C BC #### [facility] [address] [place] [address] Dr. Caitlin Matrinez Hematocrit (Bld) [Volume fraction] 31.1 % Critically low 36.0-48.0 [facility] Comment on above: Performed By: #### C BC #### [facility] [address] [place] [address] Dr. Caitlin Martinez Hemoglobin (Bld) [Mass/Vol] 9.6 g/dL Critically low 12.0-16.0 [facility] Comment on above: Performed By: #### C BC #### [facility] [address] [place] [address] Dr. Caitlin Martinez IG # 0.28 10e3/ul Critically high 0.00-0.03 [facility] Comment on above: Performed By: #### C BC #### [facility] [address] [place] [address] Dr. Caitlin Martinez IG % 2.3 % Critically high 0.0-0.5 [facility] Comment on above: Performed By: #### C BC #### [facility] [address] [place] [address] Dr. Caitlin Martinez LYMPH # 3.3 103/ul Normal 1.2-3.8 [facility] Comment on above: Performed By: #### C BC #### [facility] [address] [place] [address] Dr. Caitlin Martinez Lymphocytes/100 WBC (Bld) 26.9 % Normal 20.5-60.0 [facility] Comment on above: Performed By: #### C BC #### [facility] [address] [place] [address] Dr. Caitlin Martinez MANUAL DIFF REQ NO Normal [facility] Comment on above: Performed By: #### C BC #### [facility] [address] [address] [address] Caitlin Martinez MCH (RBC) [Entitic mass] 26.2 pg Critically low 26.7-34.0 [facility] Comment on above: Performed By: #### C BC #### [facility] [address] [place] [address] Dr. Caitlin Martinez MCHC (RBC) [Mass/Vol] 30.9 g/dL Normal 29.9-35.2 [facility] Comment on above: Performed By: #### C BC #### [facility] [address] [place] [address] Dr. Caitlin Martinez MCV (RBC) [Entitic vol] 84.7 fL Normal 81.0-99.0 [facility] Comment on above: Performed By: #### C BC #### [facility] [address] [place] [address] Dr. Caitlin Martinez MONO # 1.1 103/ul Critically high 0.3-0.8 [facility] Comment on above: Performed By: #### C BC #### [facility] [address] [place] [address] Dr. Caitlin Martinez Monocytes/100 WBC (Bld) 8.7 % Normal 1.7-12.0 [facility] Comment on above: Performed By: #### C BC #### [facility] [address] [place] [address] Dr. Caitlin Martinez NEUT # 7.0 103/ul Critically high 1.4-6.5 [facility] Comment on above: Performed By: #### C BC #### [facility] [address] [place] [address] Dr. Caitlin Martinez Neutrophils/100 WBC (Bld) 57.5 % Normal 43.0-75.0 [facility] Comment on above: Performed By: #### C BC #### [facility] [address] [place] [address] Dr. Caitlin Martinez Platelet mean volume (Bld) [Entitic vol] 9.1 fL Critically low 9.5-13.5 [facility] Comment on above: Performed By: #### C BC #### [facility] [address] [address] [address] Caitlin Martinez PLT 437 103/ul Normal 150-450 [facility] Comment on above: Performed By: #### C BC #### [facility] [id number] Caitlin Martinez RBC 3.67 106/ul Critically low 4.20-5.40 [facility] Comment on above: Performed By: #### C BC #### [facility] [id number] Caitlin Martinez WBC 12.3 103/ul Critically high 4.0-11.0 [facility] Comment on above: Performed By: #### C BC #### [facility] [address] [address] [address] Caitlin Martinez Covid-19 PCR (CVDTB)on 01-16 SARS-CoV-2 (COVID-19) RNA JONATAN+probe Ql (Unsp spec) Not detected Normal NOT DETECTED [facility] Comment on above: Result Comment: When diagnostic [...] for this test is supported by the Supervisor [employer] Service's declaration that [...] used). Performed By: #### C VDTBH #### [facility] [address] [address] [address] Caitlin Martinez PROF 14(COMP METB)on 022 Albumin [Mass/Vol] 2.1 g/dL Critically low 3.4-5.0 [place] Comment on above: Performed By: #### U RCX #### [facility] [address] [place] [address] Dr. Caitlin Martinez Albumin/Globulin [Mass ratio] 0.5 {ratio} Normal [facility] Comment on above: Performed By: #### U RCX #### [facility] [address] [address] [address] Caitlin Martinez ALP [Catalytic activity/Vol] 202 U/L Critically high 46-116 [facility] Comment on above: Performed By: #### U RCX #### [facility] [address] [place] [address] Dr. Caitlin Martinez ALT [Catalytic activity/Vol] 20 U/L Normal 14-59 [facility] Comment on above: Performed By: #### U RCX #### [facility] [address] [place] [address] Dr. Caitlin Martinez Anion gap [Moles/Vol] 11.6 mmol/L Normal [place] Comment on above: Performed By: #### U RCX #### [facility] [address] [place] [address] Dr. Caitlin Martinez AST [Catalytic activity/Vol] 17 U/L Normal 15-37 [facility] Comment on above: Performed By: #### U RCX #### [facility] [address] [place] [address] Dr. Caitlin Martinez Bilirubin [Mass/Vol] 0.3 mg/dL Normal 0.2-1.0 [facility] Comment on above: Performed By: #### U RCX #### [facility] [address] [place] [address] Dr. Caitlin Martinez Calcium [Mass/Vol] 9.2 mg/dL Normal 8.5-10.1 [facility] Comment on above: Performed By: #### U RCX #### [facility] [address] [place] [address] Dr. Caitlin Martinez Chloride [Moles/Vol] 104 mmol/L Normal 98-107 [facility] Comment on above: Performed By: #### U RCX #### [facility] [address] [address] [address] Caitlin Martinez CO2 [Moles/Vol] 26.9 mmol/L Normal 21.0-32.0 [facility] Comment on above: Performed By: #### U RCX #### [facility] [address] [address] [address] Caitlin Martinez Creatinine [Mass/Vol] 0.56 mg/dL Normal 0.55-1.02 [facility] Comment on above: Performed By: #### U RCX #### [facility] [address] [address] [address] Caitlin Martinez EGFR-AF BARBADIAN >60 Normal >=60 [facility] Comment on above: Performed By: #### U RCX #### [facility] [address] [address] [address] Caitlin Martinez EGFR-NON AF BARBADIAN >60 Normal >=60 [facility] Comment on above: Performed By: #### U RCX #### [facility] [address] [address] [address] Caitlin Martinez Globulin (S) [Mass/Vol] 4.4 g/dL Normal [facility] Comment on above: Performed By: #### U RCX #### [facility] [address] [address] [address] Caitlin Martinez Glucose [Mass/Vol] 108 mg/dL Critically high 74-106 [facility] Comment on above: Performed By: #### U RCX #### [facility] [address] [address] [address] Caitlin Martinez Potassium [Moles/Vol] 3.5 mmol/L Normal 3.5-5.1 [facility] Comment on above: Performed By: #### U RCX #### [facility] [address] [address] [address] Caitlin Martinez Protein [Mass/Vol] 6.5 g/dL Normal 6.4-8.2 [facility] Comment on above: Performed By: #### U RCX #### [facility] [address] [address] [address] Caitlin Martinez Sodium [Moles/Vol] 139 mmol/L Normal 136-145 [facility] Comment on above: Performed By: #### U RCX #### [facility] [address] [address] [address] Caitlin Martinez Urea nitrogen [Mass/Vol] 7.0 mg/dL Normal 7.0-18.0 [facility] Comment on above: Performed By: #### U RCX #### [facility] [address] [address] [address] Caitlin Martinez Urea nitrogen/Creatinine [Mass ratio] 12.5 mg/mg Normal [facility] Comment on above: Performed By: #### U RCX #### [facility] [address] [address] [address] Caitlin Martinez TROPONIN, HIGH SENSITIVITYon 02-10-2022 HSTROP <4.0 Normal 4.0-51.3 [facility] Comment on above: Result Comment: CUT- OFF POINTS HAVE BEEN ESTABLISHED BASED ON THE FOURTH UNIVERSAL DEFINITIONS OF MYOCARDIAL INFARCTION. THE UPPER REFERENCE LIMIT (URL) OF TROPONIN, DEFINED THE 99TH PERCENTILE OF cTnI DISTRIBUTION IN A REFERENCE POPULATION, HAS BEEN CONFIRMED THE DECISION THRESHOLD FOR MO DIAGNOSIS. Performed By: #### U RCX #### [facility] [address] [place] [address] Dr. Caitlin Martinez CBC AUTO DIFFon 02-09-2022 BASO # 0.1 103/ul Normal 0.0-0.1 [facility] Comment on above: Performed By: #### U RCX #### [facility] [address] [address] [address] Caitlin Martinez Basophils/100 WBC (Bld) 0.6 % Normal 0.2-2.0 [facility] Comment on above: Performed By: #### U RCX #### [facility] [address] [address] [address] Caitlin Martinez EO # 0.3 103/ul Normal 0.0-0.7 [facility] Comment on above: Performed By: #### U RCX #### [facility] [address] [address] [address] Caitlin Martinez Eosinophils/100 WBC (Bld) 2.3 % Normal 0.9-7.0 [facility] Comment on above: Performed By: #### U RCX #### [facility] [address] [place] [address] Dr. Caitlin Martinez Erythrocyte distribution width (RBC) [Ratio] 14.6 % Normal 11.0-15.0 [facility] Comment on above: Performed By: #### U RCX #### [facility] [address] [place] [address] Dr. Caitlin Martinez Hematocrit (Bld) [Volume fraction] 28.8 % Critically low 36.0-48.0 [facility] Comment on above: Performed By: #### U RCX #### [facility] [address] [place] [address] Dr. Caitlin Martinez Hemoglobin (Bld) [Mass/Vol] 9.0 g/dL Critically low 12.0-16.0 [facility] Comment on above: Performed By: #### U RCX #### [facility] [address] [place] [address] Dr. Caitlin Martinez IG # 0.20 10e3/ul Critically high 0.00-0.03 [facility] Comment on above: Performed By: #### U RCX #### [facility] [address] [place] [address] Dr. Caitlin Martinez IG % 1.5 % Critically high 0.0-0.5 [facility] Comment on above: Performed By: #### U RCX #### [facility] [address] [place] [address] Dr. Caitlin Martinez LYMPH # 3.0 103/ul Normal 1.2-3.8 [facility] Comment on above: Performed By: #### U RCX #### [facility] [address] [place] [address] Dr. Caitlin Martinez Lymphocytes/100 WBC (Bld) 22.2 % Normal 20.5-60.0 [facility] Comment on above: Performed By: #### U RCX #### [facility] [address] [place] [address] Dr. Caitlin Martinez MANUAL DIFF REQ NO Normal [facility] Comment on above: Performed By: #### U RCX #### [facility] [address] [place] [address] Dr. Caitlin Martinez MCH (RBC) [Entitic mass] 26.2 pg Critically low 26.7-34.0 [facility] Comment on above: Performed By: #### U RCX #### [facility] [address] [place] [address] Dr. Caitlin Martinez MCHC (RBC) [Mass/Vol] 31.3 g/dL Normal 29.9-35.2 [facility] Comment on above: Performed By: #### U RCX #### [facility] [address] [place] [address] Dr. Caitlin Martinez MCV (RBC) [Entitic vol] 83.7 fL Normal 81.0-99.0 [facility] Comment on above: Performed By: #### U RCX #### [facility] [address] [place] [address] Dr. Caitlin Martinez MONO # 1.3 103/ul Critically high 0.3-0.8 [facility] Comment on above: Performed By: #### U RCX #### [facility] [address] [place] [address] Dr. Caitlin Martinez Monocytes/100 WBC (Bld) 9.8 % Normal 1.7-12.0 [facility] Comment on above: Performed By: #### U RCX #### [facility] [address] [place] [address] Dr. Caitlin Martinez NEUT # 8.5 103/ul Critically high 1.4-6.5 [facility] Comment on above: Performed By: #### U RCX #### [facility] [address] [place] [address] Dr. Caitlin Martinez Neutrophils/100 WBC (Bld) 63.6 % Normal 43.0-75.0 [facility] Comment on above: Performed By: #### U RCX #### [facility] [address] [place] [address] Dr. Caitlin Martinez Platelet mean volume (Bld) [Entitic vol] 9.1 fL Critically low 9.5-13.5 [facility] Comment on above: Performed By: #### U RCX #### [facility] [address] [place] [address] Dr. Caitlin Martinez PLT 355 103/ul Normal 150-450 [facility] Comment on above: Performed By: #### U RCX #### [facility] [address] [place] [address] Dr. Caitlin Martinez RBC 3.44 106/ul Critically low 4.20-5.40 [facility] Comment on above: Performed By: #### U RCX #### [facility] [address] [place] [address] Dr. Caitlin Martinez WBC 13.3 103/ul Critically high 4.0-11.0 [facility] Comment on above: Performed By: #### U RCX #### [facility] [address] [place] [address] Dr. Caitlin Martinez SCREENon 02-09-2022 SCREEN Negative Normal [facility] Comment on above: Performed By: #### F ETSCRN #### [facility] [address] [place] [address] Dr. Caitlin Martinez CBC AUTO DIFFon 02-08-2022 BASO # 0.1 103/ul Normal 0.0-0.1 [facility] Comment on above: Performed By: #### U RCX #### [facility] [address] [place] [address] Dr. Caitlin Martinez Basophils/100 WBC (Bld) 0.4 % Normal 0.2-2.0 [facility] Comment on above: Performed By: #### U RCX #### [facility] [address] [place] [address] Dr. Caitlin Martinez EO # 0.3 103/ul Normal 0.0-0.7 [facility] Comment on above: Performed By: #### U RCX #### [facility] [address] [place] [address] Dr. Caitlin Martinez Eosinophils/100 WBC (Bld) 2.6 % Normal 0.9-7.0 [facility] Comment on above: Performed By: #### U RCX #### [facility] [address] [place] [address] Dr. Caitlin Martinez Erythrocyte distribution width (RBC) [Ratio] 14.7 % Normal 11.0-15.0 [facility] Comment on above: Performed By: #### U RCX #### [facility] [address] [place] [address] Dr. Caitlin Martinez Hematocrit (Bld) [Volume fraction] 30.6 % Critically low 36.0-48.0 [facility] Comment on above: Performed By: #### U RCX #### [facility] [address] [place] [address] Dr. Caitlin Martinez Hemoglobin (Bld) [Mass/Vol] 9.7 g/dL Critically low 12.0-16.0 [facility] Comment on above: Performed By: #### U RCX #### [facility] [address] [place] [address] Dr. Caitlin Martinez IG # 0.15 10e3/ul Critically high 0.00-0.03 [facility] Comment on above: Performed By: #### U RCX #### [facility] [address] [place] [address] Dr. Caitlin Martinez IG % 1.3 % Critically high 0.0-0.5 [facility] Comment on above: Performed By: #### U RCX #### [facility] [address] [place] [address] Dr. Caitlin Martinez LYMPH # 2.8 103/ul Normal 1.2-3.8 [facility] Comment on above: Performed By: #### U RCX #### [facility] [address] [place] [address] Dr. Caitlin Martinez Lymphocytes/100 WBC (Bld) 24.8 % Normal 20.5-60.0 [facility] Comment on above: Performed By: #### U RCX #### [facility] [address] [place] [address] Dr. Caitlin Martinez MANUAL DIFF REQ NO Normal [facility] Comment on above: Performed By: #### U RCX #### [facility] [address] [place] [address] Dr. Caitlin Martinez MCH (RBC) [Entitic mass] 26.6 pg Critically low 26.7-34.0 [facility] Comment on above: Performed By: #### U RCX #### [facility] [address] [place] [address] Dr. Caitlin Martinez MCHC (RBC) [Mass/Vol] 31.7 g/dL Normal 29.9-35.2 [facility] Comment on above: Performed By: #### U RCX #### [facility] [address] [place] [address] Dr. Caitlin Martinez MCV (RBC) [Entitic vol] 83.8 fL Normal 81.0-99.0 [facility] Comment on above: Performed By: #### U RCX #### [facility] [facility] [address] [place] [address] Dr. Caitlin Martinez MONO # 1.0 103/ul Critically high 0.3-0.8 [facility] Comment on above: Performed By: #### U RCX #### [facility] [address] [place] [address] Dr. Caitlin Martinez Monocytes/100 WBC (Bld) 8.7 % Normal 1.7-12.0 [facility] Comment on above: Performed By: #### U RCX #### [facility] [address] [place] [address] Dr. Caitlin Martinez NEUT # 7.0 103/ul Critically high 1.4-6.5 [facility] Comment on above: Performed By: #### U RCX #### [facility] [address] [place] [address] Dr. Caitlin Martinez Neutrophils/100 WBC (Bld) 62.2 % Normal 43.0-75.0 [facility] Comment on above: Performed By: #### U RCX #### [facility] [address] [place] [address] Dr. Caitlin Martinez Platelet mean volume (Bld) [Entitic vol] 9.0 fL Critically low 9.5-13.5 [facility] Comment on above: Performed By: #### U RCX #### [facility] [address] [address] [address] Caitlin Martinez PLT 373 103/ul Normal 150-450 [facility] Comment on above: Performed By: #### U RCX #### [facility] [address] [place] [address] Dr. Caitlin Martinez RBC 3.65 106/ul Critically low 4.20-5.40 [facility] Comment on above: Performed By: #### U RCX #### [facility] [address] [address] [address] Caitlin Martinez WBC 11.3 103/ul Critically high 4.0-11.0 [facility] Comment on above: Performed By: #### U RCX #### [facility] [address] [place] [address] Dr. Caitlin Martinez Covid-19 PCR ([facility])on 01-16 SARS-CoV-2 (COVID-19) RNA JONATAN+probe Ql (Unsp spec) Not detected Normal NOT DETECTED [facility] Comment on above: Result Comment: When diagnostic [...] for this test is supported by the [place] of Health and Human Service's declaration that [...] used). Performed By: #### C BC #### [facility] [address] [place] [address] Dr. Caitlin Martinez DIRECT COOMBSon 02-08-2022 DIRECT EDWINA Negative Normal [facility] Comment on above: Performed By: #### D IRCMB, ABID #### [facility] [address] [place] [address] Dr. Caitlin Martinez DRUG SCREEN RAPID (URINE)on 02-08-2022 AMP Negative Normal NEGATIVE [facility] Comment on above: Performed By: #### C BC #### [facility] [address] [place] [address] Dr. Caitlin Martinez BAR Negative Normal NEGATIVE [facility] Comment on above: Performed By: #### C BC #### [facility] [address] [place] [address] Dr. Caitlin Martinez BUP Negative Normal NEGATIVE [facility] Comment on above: Performed By: #### C BC #### [facility] [address] [place] [address] Dr. Caitlin Martinez BZO Negative Normal NEGATIVE [facility] Comment on above: Performed By: #### C BC #### [facility] [address] [place] [address] Dr. Caitlin Martinez JEANNA Negative Normal NEGATIVE [facility] Comment on above: Performed By: #### C BC #### [facility] [address] [place] [address] Dr. Caitlin Martinez CUT-OFFS SEE BELOW Normal [facility] Comment on above: Result Comment: AMP (Amphetamine): 500ng/mL, BAR (Barbituates): 200 ng/mL, BZO (Benzodiazepines): 150 ng/mL, BUP (Buprenorphine): 10 ng/mL, JEANNA (Cocaine): 150 ng/mL, mAMP (Methamphetamine): 500 ng/mL, MTD (Methadone): 200 ng/mL, OPI (Opiates): 100 ng/mL, OXY (Oxycodone): 100 ng/mL, PCP (Phencyclidine): 25 ng/mL, PPX (Propoxyphene): 300 ng/mL, THC (Cannabinoids): 50 ng/mL, TCA (Trycyclic Antidepressants): 300 ng/mL Performed By: #### C BC #### [facility] [address] [place] [address] Dr. Caitlin Martinez DRUG CUT HEADER DRUG CLASS TEST SYSTEM CUT-OFF CONCENTRATIONS ARE FOLLOWS: Normal [facility] Comment on above: Performed By: #### C BC #### [facility] [address] [place] [address] Dr. Caitlin Martinez mAMP Negative Normal NEGATIVE [facility] Comment on above: Performed By: #### C BC #### [facility] [address] [place] [address] Dr. Caitlin Martinez MTD Negative Normal NEGATIVE [facility] Comment on above: Performed By: #### C BC #### [facility] [address] [place] [address] Dr. Caitlin Martinez OPI Negative Normal NEGATIVE [facility] Comment on above: Performed By: #### C BC #### [facility] [address] [place] [address] Dr. Caitlin Martinez OXY Negative Normal NEGATIVE [facility] Comment on above: Performed By: #### C BC #### [facility] [address] [place] [address] Dr. Caitlin Martinez PCP Negative Normal NEGATIVE [facility] Comment on above: Performed By: #### C BC #### [facility] [address] [place] [address] Dr. Caitlin Martinez PPX Negative Normal NEGATIVE [facility] Comment on above: Performed By: #### C BC #### [facility] [address] [place] [address] Dr. Caitlin Martinez TCA Negative Normal NEGATIVE [facility] Comment on above: Performed By: #### C BC #### [facility] [address] [place] [address] Dr. Caitlin Martinez THC Negative Normal NEGATIVE [facility] Comment on above: Performed By: #### C BC #### [facility] [address] [place] [address] Dr. Caitlin Martinez TYPE AND SCREENon 02-08-2022 TYPE AND SCREEN Negative Normal [facility] Comment on above: Performed By: #### I HORACIO #### [facility] [address] [place] [address] Dr. Caitlin Martinez US PREG BIOPHY W [...] DAVID BLACKMON Date: 2022-02-05 16:28 Normal [facility] AMNISUREon 01-25-2022 AMNISURE Negative Normal NEGATIVE [facility] Comment on above: Performed By: #### A MNI #### [facility] [address] [place] [address] Dr. Caitlin Martinez CULTURE URINEon 01-25-2022 CULTURE URINE Culture Observations : No growth Normal [facility] Comment on above: Performed By: #### U RCX #### [facility] [address] [place] [address] Dr. Caitlin Martinez UA (CLEAN/CATCH) FLAMER SEALER/MICRO I F IND.on 01-25-2022 Bilirubin Ql (U) Negative Normal NEGATIVE [facility] Comment on above: Performed By: #### C VDTBH #### [facility] [address] [place] [address] Dr. Caitlin Martinez Clarity (U) SL CLOUDY Abnormal CLEAR [facility] Comment on above: Performed By: #### C VDTBH #### [facility] [address] [place] [address] Dr. Caitlin Martinez Color (U) LT. YELLOW Normal YELLOW [facility] Comment on above: Performed By: #### C VDTBH #### [facility] [address] [place] [address] Dr. Caitlin Martinez Glucose Ql (U) Negative Normal NEGATIVE [facility] Comment on above: Performed By: #### C VDTBH #### [facility] [address] [place] [address] Dr. Caitlin Martinez Hemoglobin Ql (U) TRACE-INTACT Abnormal NEGATIVE [facility] Comment on above: Performed By: #### C VDTBH #### [facility] [address] [place] [address] Dr. Caitlin Martinez Ketones Ql (U) Negative Normal NEGATIVE [facility] Comment on above: Performed By: #### C VDTBH #### [facility] [address] [place] [address] Dr. Caitlin Martinez LEUKOCYTES TRACE Abnormal NEGATIVE [facility] Comment on above: Performed By: #### C VDTBH #### [facility] [address] [place] [address] Dr. Caitlin Martinez Nitrite Ql (U) Negative Normal NEGATIVE [facility] Comment on above: Performed By: #### C VDTBH #### [facility] [address] [place] [address] Dr. Caitlin Martinez pH (U) 6.5 [pH] Normal 5-9 [facility] Comment on above: Performed By: #### C VDTBH #### [facility] [address] [place] [address] Dr. Caitlin Martinez SPEC GRAVITY 1.020 Normal 1.005-<=1.025 [facility] Comment on above: Performed By: #### C VDTBH #### [facility] [address] [place] [address] Dr. Caitlin Martinez UA PROTEIN Negative Normal NEGATIVE/ TRACE [facility] Comment on above: Performed By: #### C VDTBH #### [facility] [address] [place] [address] Dr. Caitlin Martinez UR MICRO IND INDICATED Normal [facility] Comment on above: Performed By: #### C VDTBH #### [facility] [address] [place] [address] Dr. Caitlin Martinez Urobilinogen Qn (U) 0.2 {Barbara'U}/dL Normal 0.2 - 1. 0 [facility] Comment on above: Performed By: #### C VDTBH #### [facility] [address] [place] [address] Dr. Caitlin Martinez URINE MICROSCOPIC ONLYon BACTERIA MODERATE Abnormal NONE SEEN [facility] Comment on above: Performed By: #### C VDTBH #### [facility] [address] [place] [address] Dr. Caitlin Martinez Bacteria identified Cx Nom (U) INDICATED Normal [facility] Comment on above: Performed By: #### C VDTBH #### [facility] [address] [place] [address] Dr. Caitlin Martinez CAST NONE SEEN Normal NONE SEEN [facility] Comment on above: Performed By: #### C VDTBH #### [facility] [address] [place] [address] Dr. Caitlin Martinez Crystals LM Nom (Urine sed) NONE SEEN Normal NONE SEEN [facility] Comment on above: Performed By: #### C VDTBH #### [facility] [address] [place] [address] Dr. Caitlin Martinez Epithelial cells LM Ql (Urine sed) FEW Abnormal NONE SEEN /RARE [facility] Comment on above: Performed By: #### C VDTBH #### [facility] [address] [place] [address] Dr. Caitlin Martinez MUCOUS TRACE Abnormal NONE SEEN [facility] Comment on above: Performed By: #### C VDTBH #### [facility] [address] [place] [address] Dr. Caitlin Martinez RBC 2-5 Abnormal 0-2 [facility] Comment on above: Performed By: #### C VDTBH #### [facility] [address] [place] [address] Dr. Caitlin Martinez WBC 0-2 Abnormal NONE SEEN [facility] Comment on above: Performed By: #### C VDTBH #### [facility] [address] [place] [address] Dr. Caitlin Martinez AMYLASEon 01-16-2022 Amylase [Catalytic activity/Vol] 49 U/L Normal 25-115 [facility] Comment on above: Performed By: #### C VDTBH #### [facility] [address] [place] [address] Dr. Caitlin Martinez BUNon 01-16-2022 Urea nitrogen [Mass/Vol] 3.0 mg/dL Critically low 7.0-18.0 [facility] Comment on above: Performed By: #### C BC #### [facility] [address] [place] [address] Dr. Caitlin Martinez CBC AUTO DIFFon 01-16-2022 BASO # 0.1 103/ul Normal 0.0-0.1 [facility] Comment on above: Performed By: #### U RCX #### [facility] [address] [place] [address] Dr. Caitlin Martinez Basophils/100 WBC (Bld) 0.6 % Normal 0.2-2.0 [facility] Comment on above: Performed By: #### U RCX #### [facility] [address] [place] [address] Dr. Caitlin Martinez EO # 0.3 103/ul Normal 0.0-0.7 [facility] Comment on above: Performed By: #### U RCX #### [facility] [address] [place] [address] Dr. Caitlin Martinez Eosinophils/100 WBC (Bld) 2.6 % Normal 0.9-7.0 [facility] Comment on above: Performed By: #### U RCX #### [facility] [address] [place] [address] Dr. Caitlin Martinez Erythrocyte distribution width (RBC) [Ratio] 14.4 % Normal 11.0-15.0 [facility] Comment on above: Performed By: #### U RCX #### [facility] [address] [address] [address] Caitlin Martinez Hematocrit (Bld) [Volume fraction] 28.4 % Critically low 36.0-48.0 [facility] Comment on above: Performed By: #### U RCX #### [facility] [address] [place] [address] Dr. Caitlin Martinez Hemoglobin (Bld) [Mass/Vol] 9.0 g/dL Critically low 12.0-16.0 [facility] Comment on above: Performed By: #### U RCX #### [facility] [address] [address] [address] Caitlin Martinez IG # 0.11 10e3/ul Critically high 0.00-0.03 [facility] Comment on above: Performed By: #### U RCX #### [facility] [address] [place] [address] Dr. Caitlin Martinez IG % 1.1 % Critically high 0.0-0.5 [facility] Comment on above: Performed By: #### U RCX #### [facility] [address] [place] [address] Dr. Caitlin Martinez LYMPH # 2.2 103/ul Normal 1.2-3.8 [facility] Comment on above: Performed By: #### U RCX #### [facility] [address] [place] [address] Dr. Caitlin Martinez Lymphocytes/100 WBC (Bld) 21.0 % Normal 20.5-60.0 [facility] Comment on above: Performed By: #### U RCX #### [facility] [address] [place] [address] Dr. Caitlin Martinez MANUAL DIFF REQ NO Normal [facility] Comment on above: Performed By: #### U RCX #### [facility] [address] [place] [address] Dr. Caitlin Martinez MCH (RBC) [Entitic mass] 28.2 pg Normal 26.7-34.0 [facility] Comment on above: Performed By: #### U RCX #### [facility] [address] [place], [place] [id number] Dr. Caitlin Martinez MCHC (RBC) [Mass/Vol] 31.7 g/dL Normal 29.9-35.2 [facility] Comment on above: Performed By: #### U RCX #### [facility] [address] [place] [address] Dr. Caitlin Martinez MCV (RBC) [Entitic vol] 89.0 fL Normal 81.0-99.0 [facility] Comment on above: Performed By: #### U RCX #### [facility] [address] [address] [address] Caitlin Martinez MONO # 0.9 103/ul Critically high 0.3-0.8 [facility] Comment on above: Performed By: #### U RCX #### [facility] [address] [place] [address] Dr. Caitlin Martinez Monocytes/100 WBC (Bld) 8.9 % Normal 1.7-12.0 [facility] Comment on above: Performed By: #### U RCX #### [facility] [address] [address] [address] Caitlin Martinez NEUT # 6.8 103/ul Critically high 1.4-6.5 [facility] Comment on above: Performed By: #### U RCX #### [facility] [address] [place] [address] Dr. Caitlin Martinez Neutrophils/100 WBC (Bld) 65.8 % Normal 43.0-75.0 [facility] Comment on above: Performed By: #### U RCX #### [facility] [address] [address] [address] Caitlin Martinez Platelet mean volume (Bld) [Entitic vol] 8.6 fL Critically low 9.5-13.5 [facility] Comment on above: Performed By: #### U RCX #### [facility] [address] [address] [address] Caitlin Martinez PLT 322 103/ul Normal 150-450 [facility] Comment on above: Performed By: #### U RCX #### [facility] [address] [address] [address] Caitlin Martinez RBC 3.19 106/ul Critically low 4.20-5.40 [facility] Comment on above: Performed By: #### U RCX #### [facility] [address] [place] [address] Dr. Caitlin Martinez WBC 10.3 103/ul Normal 4.0-11.0 [facility] Comment on above: Performed By: #### U RCX #### [facility] [address] [place] [address] Dr. Caitlin Martinez CREATININEon 01-16-2022 Creatinine [Mass/Vol] 0.55 mg/dL Normal 0.55-1.02 [facility] Comment on above: Performed By: #### C VDTBH #### [facility] [address] [place] [address] Dr. Caitlin Martinez EGFR-AF BARBADIAN >60 Normal >=60 [facility] Comment on above: Performed By: #### C VDTBH #### [facility] [address] [place] [address] Dr. Caitlin Martinez EGFR-NON AF BARBADIAN >60 Normal >=60 [facility] Comment on above: Performed By: #### C VDTBH #### [facility] [address] [place] [address] Dr. Caitlin Martinez ELECTROLYTESon 01-16-2022 Anion gap [Moles/Vol] 13.6 mmol/L Normal [place] Comment on above: Performed By: #### C VDTBH #### [facility] [address] [place] [address] Dr. Caitlin Martinez Chloride [Moles/Vol] 106 mmol/L Normal 98-107 [facility] Comment on above: Performed By: #### C VDTBH #### [facility] [address] [place] [address] Dr. Caitlin Martinez CO2 [Moles/Vol] 22.9 mmol/L Normal 21.0-32.0 [facility] Comment on above: Performed By: #### C VDTBH #### [facility] [address] [place] [address] Dr. Caitlin Martinez Potassium [Moles/Vol] 3.5 mmol/L Normal 3.5-5.1 [facility] Comment on above: Performed By: #### C VDTBH #### [facility] [address] [place] [address] Dr. Caitlin Martinez Sodium [Moles/Vol] 139 mmol/L Normal 136-145 [facility] Comment on above: Performed By: #### C VDTBH #### [facility] [address] [place] [address] Dr. Caitlin Martinez LIPASEon 01-16-2022 Lipase [Catalytic activity/Vol] 66.0 U/L Critically low 73.0-393.0 [facility] Comment on above: Performed By: #### C BC #### [facility] [address] [place] [address] Dr. Caitlin Martinez SGOTon 01-16-2022 AST [Catalytic activity/Vol] 12 U/L Critically low 15-37 [facility] Comment on above: Performed By: #### C VDTBH #### [facility] [address] [place] [address] Dr. Caitlin Martinez SGPTon 01-16-2022 ALT [Catalytic activity/Vol] 9 U/L Critically low 14-59 [facility] Comment on above: Performed By: #### C VDTBH #### [facility] [address] [place] [address] Dr. Caitlin Martinez CBC AUTO DIFFon 01-15-2022 BASO # 0.1 103/ul Normal 0.0-0.1 [facility] Comment on above: Performed By: #### C VDTBH #### [facility] [address] [place] [address] Dr. Caitlin Martinez Basophils/100 WBC (Bld) 0.4 % Normal 0.2-2.0 [facility] Comment on above: Performed By: #### C VDTBH #### [facility] [address] [place] [address] Dr. Caitlin Martinez EO # 0.2 103/ul Normal 0.0-0.7 [facility] Comment on above: Performed By: #### C VDTBH #### [facility] [address] [place] [address] Dr. Caitlin Martinez Eosinophils/100 WBC (Bld) 1.4 % Normal 0.9-7.0 [facility] Comment on above: Performed By: #### C VDTBH #### [facility] [address] [place] [address] Dr. Caitlin Martinez Erythrocyte distribution width (RBC) [Ratio] 14.1 % Normal 11.0-15.0 [facility] Comment on above: Performed By: #### C VDTBH #### [facility] [address] [place] [address] Dr. Caitlin Martinez Hematocrit (Bld) [Volume fraction] 28.4 % Critically low 36.0-48.0 [facility] Comment on above: Performed By: #### C VDTBH #### [facility] [address] [place] [address] Dr. Caitlin Martinez Hemoglobin (Bld) [Mass/Vol] 9.0 g/dL Critically low 12.0-16.0 [facility] Comment on above: Performed By: #### C VDTBH #### [facility] [address] [place] [address] Dr. Caitlin Martinez IG # 0.18 10e3/ul Critically high 0.00-0.03 [facility] Comment on above: Performed By: #### C VDTBH #### [facility] [address] [place] [address] Dr. Caitlin Martinez IG % 1.3 % Critically high 0.0-0.5 [facility] Comment on above: Performed By: #### C VDTBH #### [facility] [address] [place] [address] Dr. Caitlin Martinez LYMPH # 2.4 103/ul Normal 1.2-3.8 [facility] Comment on above: Performed By: #### C VDTBH #### [facility] [address] [place] [address] Dr. Caitlin Martinez Lymphocytes/100 WBC (Bld) 16.8 % Critically low 20.5-60.0 [facility] Comment on above: Performed By: #### C VDTBH #### [facility] [address] [place] [address] Dr. Caitlin Martinez MANUAL DIFF REQ NO Normal [facility] Comment on above: Performed By: #### C VDTBH #### [facility] [address] [place] [address] Dr. Ciatlin Martinez MCH (RBC) [Entitic mass] 27.9 pg Normal 26.7-34.0 [facility] Comment on above: Performed By: #### C VDTBH #### [facility] [address] [place] [address] Dr. Caitlin Martinez MCHC (RBC) [Mass/Vol] 31.7 g/dL Normal 29.9-35.2 [facility] Comment on above: Performed By: #### C VDTBH #### [facility] [address] [place] [address] Dr. Caitlin Martinez MCV (RBC) [Entitic vol] 87.9 fL Normal 81.0-99.0 [facility] Comment on above: Performed By: #### C VDTBH #### [facility] [address] [place] [address] Dr. Caitlin Martinez MONO # 0.9 103/ul Critically high 0.3-0.8 [facility] Comment on above: Performed By: #### C VDTBH #### [facility] [address] [place] [address] Dr. Caitlin Martinez Monocytes/100 WBC (Bld) 6.7 % Normal 1.7-12.0 [facility] Comment on above: Performed By: #### C VDTBH #### [facility] [address] [place] [address] Dr. Caitlin Martinez NEUT # 10.3 103/ul Critically high 1.4-6.5 [facility] Comment on above: Performed By: #### C VDTBH #### [facility] [address] [address] [address] Caitlin Martinez Neutrophils/100 WBC (Bld) 73.4 % Normal 43.0-75.0 [facility] Comment on above: Performed By: #### C VDTBH #### [facility] [address] [address] [address] Caitlin Martinez Platelet mean volume (Bld) [Entitic vol] 9.0 fL Critically low 9.5-13.5 [facility] Comment on above: Performed By: #### C VDTBH #### [facility] [address] [address] [address] Caitlin Martinez PLT 318 103/ul Normal 150-450 [facility] Comment on above: Performed By: #### C VDTBH #### [facility] [address] [address] [address] Caitlin Martinez RBC 3.23 106/ul Critically low 4.20-5.40 [facility] Comment on above: Performed By: #### C VDTBH #### [facility] [address] [address] [address] Caitlin Martinez WBC 14.0 103/ul Critically high 4.0-11.0 [facility] Comment on above: Performed By: #### C VDTBH #### [facility] [address] [address] [address] ABD/PELVIS WO CONon [...] DAVID BLACKMON Date: 2022-01-15 16:31 Normal [facility] CULTURE URINEon 01-15-2022 CULTURE URINE Culture Observations : LIGHT GROWTH OF MIXED GENITAL COSME. NO POTENTIAL PATHOGENS SEEN. Normal [facility] Comment on above: Performed By: #### U RCX #### [facility] [address] [place] [address] Dr. Caitlin Martinez UA (CLEAN/CATCH) FLAMER SEALER/MICRO I F IND.on 01-15-2022 Bilirubin Ql (U) Negative Normal NEGATIVE [facility] Comment on above: Performed By: #### C BC #### [facility] [address] [place] [address] Dr. Caitlin Martinez Clarity (U) CLEAR Normal CLEAR [facility] Comment on above: Performed By: #### C BC #### [facility] [address] [place] [address] Dr. Caitlin Martinez Color (U) LT. YELLOW Normal YELLOW [facility] Comment on above: Performed By: #### C BC #### [facility] [address] [place] [address] Dr. Caitlin Martinez Glucose Ql (U) Negative Normal NEGATIVE [facility] Comment on above: Performed By: #### C BC #### [facility] [address] [place] [address] Dr. Caitlin Martinez Hemoglobin Ql (U) Negative Normal NEGATIVE [facility] Comment on above: Performed By: #### C BC #### [facility] [address] [place] [address] Dr. Caitlin Martinez Ketones Ql (U) Negative Normal NEGATIVE [facility] Comment on above: Performed By: #### C BC #### [facility] [address] [place] [address] Dr. Caitlin Martinez LEUKOCYTES TRACE Abnormal NEGATIVE [facility] Comment on above: Performed By: #### C BC #### [facility] [address] [place] [address] Dr. Caitlin Martinez Nitrite Ql (U) Negative Normal NEGATIVE [facility] Comment on above: Performed By: #### C BC #### [facility] [address] [place] [address] Dr. Caitlin Martinez pH (U) 7.0 [pH] Normal 5-9 [facility] Comment on above: Performed By: #### C BC #### [facility] [address] [place] [address] Dr. Caitlin Martinez SPEC GRAVITY 1.010 Normal 1.005-<=1.025 [facility] Comment on above: Performed By: #### C BC #### [facility] [address] [place] [address] Dr. Caitlin Martinez UA PROTEIN Negative Normal NEGATIVE/ TRACE [facility] Comment on above: Performed By: #### C BC #### [facility] [address] [place] [address] Dr. Caitlin Martinez UR MICRO IND INDICATED Normal [facility] Comment on above: Performed By: #### C BC #### [facility] [address] [place] [address] Dr. Caitlin Martinez Urobilinogen Qn (U) 0.2 {Barbara'U}/dL Normal 0.2 - 1. 0 [facility] Comment on above: Performed By: #### C BC #### [facility] [address] [place] [address] Dr. Caitlin Martinez URINE MICROSCOPIC ONLYon BACTERIA MODERATE Abnormal NONE SEEN [facility] Comment on above: Performed By: #### C BC #### [facility] [address] [place] [address] Dr. Caitlin Martinez Bacteria identified Cx Nom (U) INDICATED Normal [facility] Comment on above: Performed By: #### C BC #### [facility] [address] [place] [address] Dr. Caitlin Martinez CAST NONE SEEN Normal NONE SEEN [facility] Comment on above: Performed By: #### C BC #### [facility] [address] [place] [address] Dr. Caitlin Martinez Crystals LM Nom (Urine sed) NONE SEEN Normal NONE SEEN [facility] Comment on above: Performed By: #### C BC #### [facility] [address] [place] [address] Dr. Caitlin Martinez Epithelial cells LM Ql (Urine sed) MODERATE Abnormal NONE SEEN /RARE [facility] Comment on above: Performed By: #### C BC #### [facility] [address] [place] [address] Dr. Caitlin Martinez MUCOUS NONE SEEN Normal NONE SEEN [facility] Comment on above: Performed By: #### C BC #### [facility] [address] [place] [address] Dr. Caitlin Martinez RBC NONE SEEN Abnormal 0-2 [facility] Comment on above: Performed By: #### C BC #### [facility] [address] [place] [address] Dr. Caitlin Martinez WBC 2-5 Abnormal NONE SEEN [facility] Comment on above: Performed By: #### C BC #### [facility] [address] [place] [address] Dr. Caitlin Martinez US APPENDIXon 01-15-2022 US [...] DAVID BLACKMON Date: 2022-01-15 14:14 Normal [facility] US PREG GROWTHon 01-15-2022 US PREG GROWTH [...] DAVID BLACKMON Date: 2022-01-15 10:59 Normal [facility] US PREG PLACENTAon US PREG PLACENTA EXAMINATION: [...] DAVID BLACKMON Date: 2022-01-15 10:57 Normal [facility] UA (CLEAN/CATCH) FLAMER SEALER/MICRO I F IND.on 12-29-2021 Bilirubin Ql (U) Negative Normal NEGATIVE [facility] Comment on above: Performed By: #### C BC #### [facility] [address] [address] [address] Caitlin Martinez Clarity (U) CLEAR Normal CLEAR [facility] Comment on above: Performed By: #### C BC #### [facility] [address] [address] [address] Caitlin Martinez Color (U) LT. YELLOW Normal YELLOW [facility] Comment on above: Performed By: #### C BC #### [facility] [address] [place] [address] Dr. Caitlin Martinez Glucose Ql (U) Negative Normal NEGATIVE [facility] Comment on above: Performed By: #### C BC #### [facility] [address] [place] [address] Dr. Caitlin Martinez Hemoglobin Ql (U) Negative Normal NEGATIVE [facility] Comment on above: Performed By: #### C BC #### [facility] [address] [place] [address] Dr. Caitlin Martinez Ketones Ql (U) Negative Normal NEGATIVE [facility] Comment on above: Performed By: #### C BC #### [facility] [address] [place] [address] Dr. Caitlin Martinez LEUKOCYTES Negative Normal NEGATIVE [facility] Comment on above: Performed By: #### C BC #### [facility] [address] [place] [address] Dr. Caitlin Martinez Nitrite Ql (U) Negative Normal NEGATIVE [facility] Comment on above: Performed By: #### C BC #### [facility] [address] [place] [address] Dr. Caitlin Martinez pH (U) 6.5 [pH] Normal 5-9 [facility] Comment on above: Performed By: #### C BC #### [facility] [address] [place] [address] Dr. Caitlin Martinez SPEC GRAVITY 1.020 Normal 1.005-<=1.025 [facility] Comment on above: Performed By: #### C BC #### [facility] [address] [place] [address] Dr. Caitlin Martinez UA PROTEIN Negative Normal NEGATIVE/ TRACE [facility] Comment on above: Performed By: #### C BC #### [facility] [address] [place] [address] Dr. Caitlin Martinez UR MICRO IND NOT INDICATED Normal [facility] Comment on above: Performed By: #### C BC #### [facility] [address] [place] [address] Dr. Caitlin Martinez Urobilinogen Qn (U) 1.0 {Barbara'U}/dL Normal 0.2 - 1. 0 [facility] Comment on above: Performed By: #### C BC #### [facility] [address] [place] [address] Dr. Caitlin Martinez US PREG CERVICAL LENGTHon [...] KIRK OATES Date: 2021-12-29 15:53 Normal [facility] UA (CLEAN/CATCH) FLAMER SEALER/MICRO I F IND.on 12-18-2021 Bilirubin Ql (U) Negative Normal NEGATIVE [facility] Comment on above: Performed By: #### C BC #### [facility] [address] [place] [address] Dr. Caitlin Martinez Clarity (U) CLEAR Normal CLEAR [facility] Comment on above: Performed By: #### C BC #### [facility] [address] [place] [address] Dr. Caitlin Martinez Color (U) YELLOW Normal YELLOW [facility] Comment on above: Performed By: #### C BC #### [facility] [address] [place] [address] Dr. Caitlin Martinez Glucose Ql (U) Negative Normal NEGATIVE [facility] Comment on above: Performed By: #### C BC #### [facility] [address] [place] [address] Dr. Caitlin Martinez Hemoglobin Ql (U) Negative Normal NEGATIVE [facility] Comment on above: Performed By: #### C BC #### [facility] [address] [place] [address] Dr. Caitlin Martinez Ketones Ql (U) TRACE Abnormal NEGATIVE [facility] Comment on above: Performed By: #### C BC #### [facility] [address] [place] [address] Dr. Caitlin Martinez LEUKOCYTES Negative Normal NEGATIVE [facility] Comment on above: Performed By: #### C BC #### [facility] [address] [place] [address] Dr. Caitlin Martinez Nitrite Ql (U) Negative Normal NEGATIVE [facility] Comment on above: Performed By: #### C BC #### [facility] [address] [place] [address] Dr. Caitlin Martinez pH (U) 6.0 [pH] Normal 5-9 [facility] Comment on above: Performed By: #### C BC #### [facility] [address] [place] [address] Dr. Caitlin Martinez SPEC GRAVITY 1.025 Normal 1.005-<=1.025 [facility] Comment on above: Performed By: #### C BC #### [facility] [address] [place] [address] Dr. Caitlin Martinez UA PROTEIN Negative Normal NEGATIVE/ TRACE [facility] Comment on above: Performed By: #### C BC #### [facility] [address] [place] [address] Dr. Caitlin Martinez UR MICRO IND NOT INDICATED Normal [facility] Comment on above: Performed By: #### C BC #### [facility] [address] [place] [address] Dr. Caitlin Martinez Urobilinogen Qn (U) 4 {Barbara'U}/dL Abnormal 0.2 - 1.0 [facility] Comment on above: Performed By: #### C BC #### [facility] [address] [place] [address] Dr. Caitlin Martinez RHOGAMon 11-28-2021 RHOGAM Status Information Issued Quantity 1 Product ID Rh Immune Globulin Lot Number [id number] Issue Date/Time [id number] Normal [facility] Comment on above: Performed By: #### I HORACIO #### [facility] [address] [place] [address] Dr. Caitlin Martinez TYPE AND SCREENon 11-27-2021 TYPE AND SCREEN Negative Normal [facility] Comment on above: Performed By: #### T NS #### [facility] [address] [place] [address] Dr. Caitlin Martinez CULTURE URINEon 11-23-2021 CULTURE URINE Culture Observations : No growth Normal [facility] Comment on above: Performed By: #### I HORACIO #### [facility] [address] [place] [address] Dr. Caitlin Martinez UA (CLEAN/CATCH) FLAMER SEALER/MICRO I F IND.on 11-23-2021 Bilirubin Ql (U) Negative Normal NEGATIVE [facility] Comment on above: Performed By: #### U RCX #### [facility] [address] [place] [address] Dr. Caitlin Martinez Clarity (U) CLEAR Normal CLEAR [facility] Comment on above: Performed By: #### U RCX #### [facility] [address] [place] [address] Dr. Caitlin Martinez Color (U) LT. YELLOW Normal YELLOW [facility] Comment on above: Performed By: #### U RCX #### [facility] [address] [place] [address] Dr. Caitlin Martinez Glucose Ql (U) Negative Normal NEGATIVE [facility] Comment on above: Performed By: #### U RCX #### [facility] [address] [place] [address] Dr. Caitlin Martinez Hemoglobin Ql (U) Negative Normal NEGATIVE [facility] Comment on above: Performed By: #### U RCX #### [facility] [address] [place] [address] Dr. Caitlin Martinez Ketones Ql (U) Negative Normal NEGATIVE [facility] Comment on above: Performed By: #### U RCX #### [facility] [address] [place] [address] Dr. Caitlin Martinez LEUKOCYTES SMALL Abnormal NEGATIVE [facility] Comment on above: Performed By: #### U RCX #### [facility] [address] [place] [address] Dr. Caitlin Martinez Nitrite Ql (U) Negative Normal NEGATIVE [facility] Comment on above: Performed By: #### U RCX #### [facility] [address] [place] [address] Dr. Caitlin Martinez pH (U) 6.5 [pH] Normal 5-9 [facility] Comment on above: Performed By: #### U RCX #### [facility] [address] [place] [address] Dr. Caitlin Martinez SPEC GRAVITY 1.010 Normal 1.005-<=1.025 [facility] Comment on above: Performed By: #### U RCX #### [facility] [address] [place] [address] Dr. Caitlin Martinez UA PROTEIN Negative Normal NEGATIVE/ TRACE [facility] Comment on above: Performed By: #### U RCX #### [facility] [address] [place] [address] Dr. Caitlin Martinez UR MICRO IND INDICATED Normal [facility] Comment on above: Performed By: #### U RCX #### [facility] [address] [place] [address] Dr. Caitlin Martinez Urobilinogen Qn (U) 0.2 {Barbara'U}/dL Normal 0.2 - 1. 0 [facility] Comment on above: Performed By: #### U RCX #### [facility] [address] [place] [address] Dr. Caitlin Martinez URINE MICROSCOPIC ONLYon BACTERIA TRACE Abnormal NONE SEEN [facility] Comment on above: Performed By: #### U RCX #### [facility] [address] [place] [address] Dr. Caitlin Martinez Bacteria identified Cx Nom (U) INDICATED Normal [facility] Comment on above: Performed By: #### U RCX #### [facility] [address] [place] [address] Dr. Caitlin Martinez CAST SEEN Abnormal NONE SEEN [facility] Comment on above: Performed By: #### U RCX #### [facility] [address] [place] [address] Dr. Caitlin Martinez Crystals LM Nom (Urine sed) SEEN Abnormal NONE SEEN [facility] Comment on above: Performed By: #### U RCX #### [facility] [address] [place] [address] Dr. Caitlin Martinez Epithelial cells LM Ql (Urine sed) RARE Normal NONE SEEN /RARE [facility] Comment on above: Performed By: #### U RCX #### [facility] [address] [place] [address] Dr. Caitlin Martinez MUCOUS TRACE Abnormal NONE SEEN [facility] Comment on above: Performed By: #### U RCX #### [facility] [address] [place] [address] Dr. Caitlin Martinez RBC 0-2 Normal 0-2 [facility] Comment on above: Performed By: #### U RCX #### [facility] [address] [place] [address] Dr. Caitlin Martinez WBC 2-5 Abnormal NONE SEEN [facility] Comment on above: Performed By: #### U RCX #### [facility] [address] [place] [address] Dr. Caitlin Martinez GLUCOSE - 1HRon 11-06-2021 Glucose [Mass/Vol] 131 mg/dL Critically high 74-106 [facility] Comment on above: Performed By: #### I HORACIO #### [facility] [address] [place] [address] Dr. Caitlin Martienz HEMOGRAM AND PLATELon 2021 Hematocrit (Bld) [Volume fraction] 34.2 % Critically low 36.0-48.0 [facility] Comment on above: Performed By: #### C BC #### [facility] [address] [place] [address] Dr. Caitlin Martinez Hemoglobin (Bld) [Mass/Vol] 11.3 g/dL Critically low 12.0-16.0 [facility] Comment on above: Performed By: #### C BC #### [facility] [address] [place] [address] Dr. Caitlin Martinez MCH (RBC) [Entitic mass] 31.7 pg Normal 26.7-34.0 [facility] Comment on above: Performed By: #### C BC #### [facility] [address] [place] [address] Dr. Caitlin Martinez MCHC (RBC) [Mass/Vol] 33.0 g/dL Normal 29.9-35.2 [facility] Comment on above: Performed By: #### C BC #### [facility] [address] [place] [address] Dr. Caitlin Martinez MCV (RBC) [Entitic vol] 96.1 fL Normal 81.0-99.0 [facility] Comment on above: Performed By: #### C BC #### [facility] [address] [place] [address] Dr. Caitlin Martinez PLT 372 103/ul Normal 150-450 [facility] Comment on above: Performed By: #### C BC #### [facility] [address] [place] [address] Dr. Caitlin Martinez RBC 3.56 106/ul Critically low 4.20-5.40 [facility] Comment on above: Performed By: #### C BC #### [facility] [address] [place] [address] Dr. Caitlin Martinez WBC 10.1 103/ul Normal 4.0-11.0 [facility] Comment on above: Performed By: #### C BC #### [facility] [address] [place] [address] Dr. Caitlin Martinez CHLAMYDIA/GONOCOCCUS JONATAN ( AB/URINE/PAPon 10-31-2021 Chlamydia trachomatis, JONATAN Negative Normal Negative [facility] Comment on above: Performed By: #### C BC #### [facility] [address] [place] [address] Dr. Caitlin Martinez Neisseria gonorrhoeae, JONATAN Negative Normal Negative [facility] Comment on above: Performed By: #### C BC #### [facility] [address] [place] [address] Dr. Caitlin Martinez VAGINITIS/VAGINOSIS DNA PROB Paramjit 10-29-2021 Selena species Negative Normal Negative [facility] Comment on above: Performed By: #### U RCX #### [facility] [address] [place], [place] [id number] Dr. Caitlin Martinez Gardnerella vaginalis Negative Normal Negative [facility] Comment on above: Performed By: #### U RCX #### [facility] [address] [place] [address] Dr. Caitlin Martinez Trichomonas vaginalis Negative Normal Negative [facility] Comment on above: Performed By: #### U RCX #### [facility] [address] [place] [address] Dr. Caitlin Martienz US PREG INCOMPLETE ANATOMYon 10-26-2021 US PREG [...] DAVID BLACKMON Date: 2021-10-26 12:05 Normal [facility] CBC W MANUAL DIFFon 10-25-19 22 ATYPICAL LYMPH # Normal [facility] Comment on above: Performed By: #### U RCX #### [facility] [address] [place] [address] Dr. Caitlin Martinez ATYPICAL LYMPH % Normal [facility] Comment on above: Performed By: #### U RCX #### [facility] [address] [place] [address] Dr. Caitlin Martinez BAND # 0.1 103/ul Normal 0.0-0.3 [facility] Comment on above: Performed By: #### U RCX #### [facility] [address] [place] [address] Dr. Caitlin Martinez BAND % 1 % Normal 0-5 [facility] Comment on above: Performed By: #### U RCX #### [facility] [address] [place] [address] Dr. Caitlin Martinez BASOM # 0.00 103/ul Normal 0.00-0.10 [facility] Comment on above: Performed By: #### U RCX #### [facility] [address] [address] [address] Caitlin Martinez BASOM % 0.0 % Critically low 0.2-2.[address] [facility] Comment on above: Performed By: #### U RCX #### [facility] [address] [address] [address] Caitlin Martinez BLAST # Normal [facility] Comment on above: Performed By: #### U RCX #### [facility] [address] [address] [address] Caitlin Martinez BLAST % Normal [facility] Comment on above: Performed By: #### U RCX #### [facility] [address] [place] [address] Dr. Caitlin Martinez CORRECTED WBC Normal 4.0-11.0 [facility] Comment on above: Performed By: #### U RCX #### [facility] [address] [place] [address] Dr. Caitlin Martinez EOS # 0.12 103/ul Normal 0.00-0.70 [facility] Comment on above: Performed By: #### U RCX #### [facility] [address] [place] [address] Dr. Caitlin Martinez EOS% 1.0 % Normal 0.9-7.0 [facility] Comment on above: Performed By: #### U RCX #### [facility] [address] [place] [address] Dr. Caitlin Martinez HCT 31.5 % Critically low 36.0-48.0 [facility] Comment on above: Performed By: #### U RCX #### [facility] [address] [address] [address] Caitlin Martinez HGB 10.5 g/dl Critically low 12.0-16.[address] [facility] Comment on above: Performed By: #### U RCX #### [facility] [address] [place] [address] Dr. Caitlin Martinez LYMPHM # 0.37 103/ul Critically low 1.20-3.80 [facility] Comment on above: Performed By: #### U RCX #### [facility] [address] [address] [address] Caitlin Martinez LYMPHM% 3.0 % Critically low 20.5-60.0 [facility] Comment on above: Performed By: #### U RCX #### [facility] [address] [address] [address] Caitlin Martinez MCH 31.8 pg Normal 26.7-34.0 [facility] Comment on above: Performed By: #### U RCX #### [facility] [address] [address] [address] Caitlin Martinez MCHC 33.3 g/dl Normal 29.9-35.2 [facility] Comment on above: Performed By: #### U RCX #### [facility] [address] [place] [address] Dr. Caitlin Martinez MCV 95.5 fL Normal 81.0-99.0 [facility] Comment on above: Performed By: #### U RCX #### [facility] [address] [address] [address] Caitlin Martinez METAMYELOCYTE # Normal [facility] Comment on above: Performed By: #### U RCX #### [facility] [address] [place] [address] Dr. Caitlin Martinez METAMYELOCYTE % Normal [facility] Comment on above: Performed By: #### U RCX #### [facility] [address] [address] [address] Caitlin Martinez MONOM# 0.73 103/ul Normal 0.30-0.80 [facility] Comment on above: Performed By: #### U RCX #### [facility] [address] [place] [address] Dr. Caitlin Martinez MONOM% 6.0 % Normal 1.7-12.0 [facility] Comment on above: Performed By: #### U RCX #### [facility] [address] [place] [address] Dr. Caitlin Martinez MPV 9.5 fL Normal 9.5-13.5 [facility] Comment on above: Performed By: #### U RCX #### [facility] [address] [place] [address] Dr. Caitlin Martinez MYELOCYTE # Normal [facility] Comment on above: Performed By: #### U RCX #### [facility] [address] [place] [address] Dr. Caitlin Martinez MYELOCYTE % Normal [facility] Comment on above: Performed By: #### U RCX #### [facility] [address] [address] [address] Caitlin Martinez NRBC Normal [facility] Comment on above: Performed By: #### U RCX #### [facility] [address] [place] [address] Dr. Caitlin Martinez PLT 275 103/ul Normal 150-450 [facility] Comment on above: Performed By: #### U RCX #### [facility] [address] [place] [address] Dr. Caitlin Martinez RBC 3.30 106/ul Critically low 4.20-5.40 [facility] Comment on above: Performed By: #### U RCX #### [facility] [address] [place] [address] Dr. Caitlin Martinez RDW 13.6 % Normal 11.0-15.0 [facility] Comment on above: Performed By: #### U RCX #### [facility] [address] [place] [address] Dr. Caitlin Martinez SEG # 10.86 103/ul Critically high 1.40-6.50 [facility] Comment on above: Performed By: #### U RCX #### [facility] [address] [place] [address] Dr. Caitlin Martinez SEG % 89.0 % Critically high 43.0-75.0 [facility] Comment on above: Performed By: #### U RCX #### [facility] [address] [address] [address] Caitlin Martinez WBC 12.2 103/ul Critically high 4.0-11.0 [facility] Comment on above: Performed By: #### U RCX #### [facility] [address] [address] [address] Caitlin MERCADO URINE PROFILEon 2 Bilirubin Ql (U) Negative Normal NEGATIVE [facility] Comment on above: Performed By: #### C VDTBH #### [facility] [address] [place] [address] Dr. Caitlin Martinez Clarity (U) SL CLOUDY Abnormal CLEAR [facility] Comment on above: Performed By: #### C VDTBH #### [facility] [address] [place] [address] Dr. Caitlin Martinez Color (U) YELLOW Normal YELLOW [facility] Comment on above: Performed By: #### C VDTBH #### [facility] [address] [place] [address] Dr. Caitlin Martinez ERUAHNadine A micrscopic examination will be performed if indicated. Normal [facility] Comment on above: Performed By: #### C VDTBH #### [facility] [address] [place] [address] Dr. Caitlin Martinez Glucose Ql (U) Negative Normal NEGATIVE [facility] Comment on above: Performed By: #### C VDTBH #### [facility] [address] [place] [address] Dr. Caitlin Martinez Hemoglobin Ql (U) Negative Normal NEGATIVE [facility] Comment on above: Performed By: #### C VDTBH #### [facility] [address] [place] [address] Dr. Caitlin Martinez Ketones Ql (U) >=80 Abnormal NEGATIVE [facility] Comment on above: Performed By: #### C VDTBH #### [facility] [address] [place] [address] Dr. Caitlin Martinez LEUKOCYTES Negative Normal NEGATIVE [facility] Comment on above: Performed By: #### C VDTBH #### [facility] [address] [place] [address] Dr. Caitlin Martinez Nitrite Ql (U) Negative Normal NEGATIVE [facility] Comment on above: Performed By: #### C VDTBH #### [facility] [address] [place] [address] Dr. Caitlin Martinez pH (U) 6.0 [pH] Normal 5-9 [facility] Comment on above: Performed By: #### C VDTBH #### [facility] [address] [place] [address] Dr. Caitlin Martinez SPEC GRAVITY 1.020 Normal 1.005-<=1.025 [facility] Comment on above: Performed By: #### C VDTBH #### [facility] [address] [place] [address] Dr. Caitlin Martinez UA PROTEIN Negative Normal NEGATIVE/ TRACE [facility] Comment on above: Performed By: #### C VDTBH #### [facility] [address] [place] [address] Dr. Caitlin Martinez UR MICRO IND NOT INDICATED Normal [facility] Comment on above: Performed By: #### C VDTBH #### [facility] [address] [place] [address] Dr. Caitlin Martinez Urobilinogen Qn (U) 1.0 {Barbara'U}/dL Normal 0.2 - 1. 0 [facility] Comment on above: Performed By: #### C VDTBH #### [facility] [address] [place] [address] Dr. Caitlin Martinez INFLUENZA A AND B AGon 10-24 [facility] SEE BELOW Normal [facility] Comment on above: Result Comment: Nega tive for Flu B protein antigen. Infection due to Flu B cannot be ruled out. Flu B antigen in the sample may be below the detection limit of the test. Performed By: #### C VDTBH #### [facility] [address] [place] [address] Dr. Caitlin Martinez INFLUENZA A AG Positive Abnormal NEGATIVE SEE COMMENT [facility] Comment on above: Performed By: #### C VDTBH #### [facility] [address] [place] [address] Dr. Caitlin Martinez INFLUENZA B AG Negative Normal NEGATIVE SEE COMMENT [facility] Comment on above: Performed By: #### C VDTBH #### [facility] [address] [place] [address] Dr. Caitlin Martinez INFLUPOSH SEE BELOW Normal [facility] Comment on above: Result Comment: NOTE : Live attenuated influenzae vaccine viruses can cause a positive result for a rapid influenza diagnostic test if administered up to 7 days prior to rapid testing. Performed By: #### C VDTBH #### [facility] [address] [place] [address] Dr. Caitlin Matrinez INTERNAL CONTROLS Within Normal Limits Normal Wi thin Normal Limits [facility] Comment on above: Performed By: #### C VDTBH #### [facility] [address] [place] [address] Dr. Caitlin Martinez PROF CHEM 8 (BAS METB)on Anion gap [Moles/Vol] 14.4 mmol/L Normal [place] Comment on above: Performed By: #### D IRCMB, ABID #### [facility] [address] [place] [address] Dr. Caitlin Martinez Calcium [Mass/Vol] 8.4 mg/dL Critically low 8.5-10.1 [facility] Comment on above: Performed By: #### D IRCMB, ABID #### [facility] [address] [place] [address] Dr. Caitlin Martinez Chloride [Moles/Vol] 101 mmol/L Normal 98-107 [facility] Comment on above: Performed By: #### D IRCMB, ABID #### [facility] [address] [place] [address] Dr. Caitlin Martinez CO2 [Moles/Vol] 19.7 mmol/L Critically low 21.0-32.0 [facility] Comment on above: Performed By: #### D IRCMB, ABID #### [facility] [address] [place] [address] Dr. Caitlin Martinez Creatinine [Mass/Vol] 0.55 mg/dL Normal 0.55-1.02 [facility] Comment on above: Performed By: #### D IRCMB, ABID #### [facility] [address] [address] [address] Caitlin Martinez EGFR-AF BARBADIAN >60 Normal >=60 [facility] Comment on above: Performed By: #### D IRCMB, ABID #### [facility] [address] [address] [address] Caitlin Martinez EGFR-NON AF BARBADIAN >60 Normal >=60 [facility] Comment on above: Performed By: #### D IRCMB, ABID #### [facility] [address] [address] [address] Caitlin Martinez Glucose [Mass/Vol] 91 mg/dL Normal 74-106 [facility] Comment on above: Performed By: #### D IRCMB, ABID #### [facility] [address] [address] [address] Caitlin Martinez Potassium [Moles/Vol] 3.1 mmol/L Critically low 3.5-5.1 [facility] Comment on above: Performed By: #### D IRCMB, ABID #### [facility] [address] [address] [address] Caitlin Martinez Sodium [Moles/Vol] 132 mmol/L Critically low 136-145 [facility] Comment on above: Performed By: #### D IRCMB, ABID #### [facility] [address] [address] [address] Caitlin Martinez Urea nitrogen [Mass/Vol] 7.0 mg/dL Normal 7.0-18.0 [facility] Comment on above: Performed By: #### D IRCMB, ABID #### [facility] [address] [address] [address] Caitlin Martinez Urea nitrogen/Creatinine [Mass ratio] 12.7 mg/mg [facility] Comment on above: Performed By: #### D IRCMB, ABID #### [facility] [address] [address] [address] Caitlin Martinez US PREG ANATOMY SINGLEon 04- 14-2022 US PREG ANATOMY SINGLE EXAMINATION: US PREG [...] by: DAVID BLACKMON Date: 2021-09-28 09:17 Normal [facility] CHEMISTRYOrdered By: SYSTEM SYSTEM on 06-21-2021 [place] [address] m[IU]/mL High 1 - 3 mIU/mL [facility] Remisol XR LUMBAR SPINE 2-3 VIEWS (S [...] gas pattern is nonobstructive. There is a xsvhgozl-ya-yhzcv amount of stool burden. IMPRESSION: No malalignment. No acute compression deformity. Vhnwqmgz-dx-evizi amount of stool burden. [employer] Workstation ID: [id number] Dictated by: LUBA GARCÍA on [facility] Mar 05, 2020 4:09:51 PM EDT Transcribed by: KELVIN GUADALUPE on [facility] Mar 05, 2020 4:17:18 PM EDT Finalized by: LUBA GARCÍA on [facility] Mar 05, 2020 7:52:11 PM EDT [facility] Comment on above: Order Comment: Injur y/Trauma or Illness?:Illness/Other How long have you had these symptoms (acute/chronic)?:Chronic Reason for exam?:low back pain History of cancer?:n Surgeries, chemotherapy, or radiation?:n Type of Exam?:Initial Additional signs and symptoms?:fibromyalgia XR Lumbar Spine 2-3 Views (S tandard)on 03-05-2020 No malalignment. No acute compression deformity. Bcabmjaf-qk-ojnvr amount of stool burden. [employer] Workstation ID: [id number] [facility] EXAMINATION: XR LUMBAR SPINE 2-3 VIEWS [...] gas pattern is nonobstructive. There is a syngygqf-px-iaaxc amount of stool burden. [facility] Interface, Rad In Jose Luis Speechq [...] gas pattern is nonobstructive. There is a nuexuvre-je-ojvgu amount of stool burden. IMPRESSION: No malalignment. No acute compression deformity. Jdevbrgk-zz-ucgto amount of stool burden. [employer] Workstation ID: [id number] [facility] CNOVon 10-28-2018 CNOV Office Visit (VASSMN ) SANDY GODINEZ ([id number]) 1995 F Date Time Provider Department 10/28/18 [...] REFERRING PROVIDER: Farrah Garcia [facility] [address] [facility] [address] Consult requested for an opinion regarding the [...] TIME: 12:44 PM Referring Provider: FARRAH GARCIA [[id number]] Allergies As of Date: 10/28/2018 (No Known [...] by WARREN RODRIGUEZ MD on 10/29/18 Normal [facility] PROGRESSon 10-28-2018 Protein mass conc HNO ID: [id number] Author: Warren Rodriguez Service: ? Author Type: Physician Type: Progress Notes Filed: 10/29/2018 3:03 PM Note Text: VASCULAR SURGERY INITIAL CONSULT SERVICE DATE: 10/28/2018 SERVICE TIME: 12:44 PM PRIMARY CARE PHYSICIAN: Farrah Garcia MD REFERRING PROVIDER: Farrah Garcia MD [address] [place] [address] Consult requested for an opinion regarding the [...] October 28, 2018 TIME: 12:44 PM Normal [facility] Vital Signs Date Time Vital Sign Value Performing Clinician Chiquis zaragoza 07-19-2023 09:31-0500 Body mass index (BMI) [Ratio] 26.79 kg/m2 Nom Nurse [facility] 07-19-2023 09:31-0500 Body weight 73.03 kg Noms Nurse [facility] 07-19-2023 09:31-0500 Diastolic blood pressure 72 mm[Hg] [facility] Nurse [facility] 07-19-2023 09:31-0500 Systolic blood pressure 118 mm[Hg] [facility] Nurse [facility] Healthcare Encounters Encounter Date Encounter Type Care Provider Facility Start: 11-12-2023 End: 11-12-2023 ambulatory JOSE MIGUEL JUSTEN Not Available Start: 11-07-2023 End: 11-08-2023 ambulatory JOSE MIGUEL CAMPUZANO [facility] Start: 10-15-2023 End: 10-15-2023 ambulatory JOSE MIGUEL CAMPUZANO Not Available Start: 09-17-2023 End: 09-17-2023 ambulatory MICHAEL CHAN Not Available Start: 08-19-2023 End: 08-19-2023 ambulatory JOSE MIGUEL LORAO Not Available Start: 07-25-2023 Clinisync Result Encounter [...] GA: 9w0d Start: 07-08-2023 ambulatory Royer Layne acility:[facility] Start: 07-02-2023 End: 07-02-2023 ambulatory JOSE MIGUEL [...] 06-21-2021 End: 09-19-2021 Recurring Jose Miguel CAMPUZANO [facility] Start: 03-05-2020 End: 03-06-2020 Patient encounter procedure [facility] Start: 03-05-2020 End: 03-05-2020 Subsequent hospital visit by physician [facility] Work Phone: [facility] Comment on above: Chronic [...] encounter procedure 08/19/2023 11:10 AM EST Routine [facility] [address] [id number] Jose Miguel Campuzano, DO [address] [place] [address] [facility] Start: 07-19-2023 End: 07-19-2024 ABO/Rh ABO/Rh Lab Routine Missed menses Expected: 07/19/2023 (Approximate), Expires: 07/19/2024 [facility] Comment on above: Expected: 07/19/2023 (Approximate), Expires: 07/19/2024 Start: 07-19-2023 End: 07-19-2024 Blood type and Indirect antibody screen panel - Blood Type and screen Lab Routine Missed menses Expected: 07/19/2023 (Approximate), Expires: 07/19/2024 [facility] Work Phone: Comment on above: Expected: 07/19/2023 (Approximate), Expires: 07/19/2024 Start: 07-19-2023 End: 07-19-2024 US Pelvis transvaginal US OB transvaginal Imaging Routine Missed menses Expected: 07/19/2023 (Approximate), Expires: 07/19/2024 [facility] Comment on above: Expected: 07/19/2023 (Approximate), Expires: 07/19/2024 Start: 02-16-2020 Influenza vaccinatio n given Sequential Influenza Vaccine (#1) [facility] Start: 2014 Hepatitis C antibody , confirmatory test Hepatitis C Screening [facility] Start: 08-31-2011 HIV screening HIV Screening [facility] Start: 08-31-2007 Vaccination for [place] papillomavirus HPV Vaccines (1 - 2-dose series) [facility] Start: 08-31-1999 History and physical examination, annual for health maintenance Wellness Visit [facility] Start: 1996 Screening for Chlamy tristan trachomatis Chlamydia Screening [facility] Start: 1996 Screening for malign ant neoplasm of cervix Pap Smear [facility] Start: 1996 Tetanus vaccination Tetanus: Every 1 0yrs [facility] Bacteria identified in Urine by Culture Urine culture Microbiology Routine Missed menses Ordered: 07/19/2023 [facility] Comment on above: Ordered: 07/19/2023 CBC W Auto Different ial panel - Blood CBC and differential Lab Routine Missed menses Ordered: 07/19/2023 [facility] Comment on above: Ordered: 07/19/2023 Hemoglobin A1c measurement Hemoglobin A1c Lab Routine Missed menses Ordered: 07/19/2023 [facility] Comment on above: Ordered: 07/19/2023 Hepatitis B virus knight rface Ag [Presence] in Serum or Plasma by Immunoassay Hepatitis B surface antigen Lab Routine Missed menses Ordered: 07/19/2023 [facility] Comment on above: Ordered: 07/19/2023 Hepatitis C virus Ab [Presence] in Serum or Plasma by Immunoassay Hepatitis C antibody Lab Routine Missed menses Ordered: 07/19/2023 [facility] Comment on above: Ordered: 07/19/2023 HIV-1/HIV-2 antigen/antibody combination immunoassay HIV-1 and HIV-2 antibodies Lab Routine Missed menses Ordered: 07/19/2023 [facility] Comment on above: Ordered: 07/19/2023 Reagin Ab [Presence] in Serum by RPR RPR Lab Routine Missed menses Ordered: 07/19/2023 [facility] Comment on above: Ordered: 07/19/2023 Rubella antibody, IgG Rubella an tibody, IgG Lab Routine Missed menses Ordered: 07/19/2023 [facility] Comment on above: Ordered: 07/19/2023 Payers Date Payer Category Payer Self-pay 2022 Medicaid [employer] [place] [id number] 2022-Present [address] [place] [address] [id number] 1995 Unknown [id number] 2.16.840.1.675565.3.579.2.903 1995 Unknown [id number] 2.16.840.1.191044.3.579.2.593 1996 Unknown [id number] 2.16.840.1.239828.3.579.2.593 1996 Unknown [id number] 2.16.840.1.949402.3.579.2.593 1996 Unknown [id number] 2.16.840.1.091482.3.579.2.593 1996 Unknown [id number] 2.16.840.1.020947.3.579.2.593 1996 Unknown [id number] 2.16.840.1.354643.3.579.2.593 1996 Unknown [id number] 2.16.840.1.771854.3.579.2.593 1996 Unknown [id number] 2.16.840.1.584710.3.579.2.593 1996 Unknown [id number] 2.16.840.1.485220.3.579.2.593 1996 Unknown [id number] 2.16.840.1.068080.3.579.2.593 1996 Unknown [id number] 2.16.840.1.618157.3.579.2.593 1996 Unknown [id number] 2.16.840.1.753909.3.579.2.593 1996 Unknown [id number] 2.16.840.1.970522.3.579.2.593 1996 Unknown [id number] 2.16.840.1.932273.3.579.2.593 1996 Unknown [id number] 2.16.840.1.294132.3.579.2.593 1996 Unknown [id number] 2.16.840.1.482072.3.579.2.593 1996 Unknown [id number] 2.16.840.1.846297.3.579.2.593 1996 Unknown [id number] 2.16.840.1.304082.3.579.2.593 1996 Unknown [id number] 2.16.840.1.685748.3.579.2.593 1996 Unknown [id number] 2.16.840.1.143355.3.579.2.593 1996 Unknown [id number] 2.16.840.1.581393.3.579.2.593 1996 Unknown [id number] 2.16.840.1.819542.3.579.2.1286 1996 Unknown [id number] 2.16.840.1.929360.3.579.2.1286 1996 Unknown [id number] 2.16.840.1.807299.3.579.2.1259 1996 Unknown [id number] 2.16.840.1.012714.3.579.2.1259 1996 Unknown [id number] 2.16.840.1.191634.3.579.2.1259 1996 Unknown [id number] 2.16.840.1.448198.3.579.2.1259 1996 Unknown [id number] 2.16.840.1.129686.3.579.2.9 1996 Unknown [id number] 2.16.840.1.379038.3.579.2.1259 1959 Unknown [id number] 1959 Unknown [id number] Unknown [employer]ERCIAL [employer]ME RCIAL MISCELLANEOUS [id number] Effective for all dates [id number] 1.2.840.944519.1.13.385.2.7.3. [id number] Unknown [id number] Unknown [id number] 2.16.840.1.306907.3.579.2.531 Social History Date Type Detail Facility Tobacco smoking stat us [facility]igned At Not on file [facility] Start: 12-07-2022 Sex Assigned At Female [facility] Start: 12-07-2022 Tobacco smoking status NHIS Never smoked tobacco [facility] Start: 07-19-2023 Alcohol intake Current drinker of alcohol (finding) [facility] Start: 12-07-2022 History of Social function [facility] Start: 12-07-2022 Alcohol Comment 1-2 drinks less than monthly in the past year [facility] Start: 05-31-2023 [facility] Start: 1995 Sex Assigned At Female [facility] Start: 11-29-2022 Gender identity Identifies as female gender (finding) [facility] Start: 11-29-2022 Sexual orientation Heterosexual (finding) [facility] History of Present illness Narrative [...] Procedure Laterality Date DILATION AND CURETTAGE 2018 [place] TONSILLECTOMY & ADENOIDECTOMY AGE 13/> 2014 WISDOM TOOTH EXTRACTION Allergies Allergen Reactions Wound [...] sent for nausea to pharmacy. Pt desires [place] [address] and understands to have it done at 10 weeks along w/her labs. Follow Up: Patient is to have labs drawn at directed and return to office for initial OB appointment with provider. Patient may call office as needed with any concerns or questions. Nurse Visit Completed by: Cori Daniel MA documented in this encounter [facility] Clinical Note 01-16-2022 Note Date & [...] by: Cecelia FOOTE Date: 2022-01-16 21:33 [facility] Clinical Note 01-16-2022 Note Date & Type [...] by: Cecelia FOOTE Date: 2022-01-16 21:33 [facility] Clinical Note 01-15-2022 Note Date & Type [...] by: IGOR DIAZ Date: 2022-01-15 10:10 [facility] Evaluation + Plan note Note Date & Type Note Facility Evaluation + Plan note No data available for this section [facility] Evaluation note Note Date & Type Note Facility Evaluation note Diagnosis Missed menses Nausea Nausea alone documented in this encounter [facility] Hospital Discharge instructions Note Date & Type Note Facility Hospital Discharge instructions No data available for this section [facility] Summary Purpose Family History No Family History Records FoundNo Family History Records FoundNo Family History Records FoundNo Family History Records FoundNo Family History Records FoundNo Family History Records FoundNo Family History Records Found Advance Directives No Advanced Directives Records FoundDocuments on File Type Date Recorded 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 Advance Directives and Rita torres Will 03/05/2020 2:18 PM Assessments Diagnosis Chronic low back pain, unspecified back pain laterality, unspecified whether sciatica present Additional Source Comments INFORMATION SOURCE (unrecogn ized section and content) DATE CREATED AUTHOR 11/08/2018 [facility] DATE CREATED AUTHOR AUTHOR'S ORGANIZ ATION 03/21/2020 [facility] DATE CREATED AUTHOR AUTHOR'S ORGANIZ ATION 08/04/2022 [facility] DATE CREATED AUTHOR AUTHOR'S ORGANIZ ATION 09/06/2022 [facility] DATE CREATED AUTHOR AUTHOR'S ORGANIZ ATION 09/17/2023 [facility] DATE CREATED AUTHOR AUTHOR'S ORGANIZ ATION 11/09/2023 [facility] DATE CREATED AUTHOR AUTHOR'S ORGANIZ ATION 11/12/2023 [facility] EPIC Reason for Visit (unrecogniz ed [...] BE BASED ON THE PRIMARY CLINICAL RECORDS. [employer] provides no warranty or guarantee of the accuracy or completeness of information in this document.
== END 2023-12-05 08:55 | disposition home or self-care (01) ==
LOC: NOMS 08:55
PROVIDERS: PCP Nurse Practitioner Family; Visit Provider Obstetrics & Gynecology
DX: O43.112 Circumvallate placenta, second trimester (principal); Q27.0 Congenital absence and hypoplasia of umbilical artery; Z3A.20 20 weeks gestation of pregnancy
CPT/HCPCS: 76816

== ENCOUNTER 2023-12-07 10:35 | Emergency (ER) | payer OTHER, SELFPAY ==
[2023-12-07 10:42] VITALS: BP 121/83; PULSE 90; TEMP 36.7; O2SAT 100; BMI 32.2
--- NOTE | 2023-12-07 10:42 | XR_ITS ---
The [address] [address] Patient Name: SANDY GODINEZ MRN: [id number] date: 1995 Sex: F Assigned Patient Location: ED.MAIN Current Patient Location: Accession/Order Number: [id number] Exam Date: 12/07/2023 11:06 Report Date: 12/07/2023 12:12 At the request of: MARGI ZULUAGA Procedure: XR ankle LT min 3V EXAM: XR ankle LT min 3V HISTORY: Trauma; technologist notes state lateral ankle pain following a sprain falling off of a curb. COMPARISON: None. TECHNIQUE: AP, mortise and lateral views of the left ankle performed. FINDINGS: The bony alignment and mineralization are within normal limits. There is no fracture. The plafond and talar dome are smoothly marginated. The ankle mortise is anatomic. The joint spaces are normal. There is mild soft tissue prominence at the ankle. Correlate with the clinical examination to differentiate the patient's body habitus from soft tissue swelling. XR/XR ankle LT min 3V IMPRESSION: There is no acute fracture or malalignment. Mild soft tissue prominence at the ankle. Correlate with the clinical examination to differentiate the patient's body habitus from soft tissue swelling. Electronically authenticated by: YONATAN SULLIVAN Date: 12/07/2023 12:12
--- NOTE | 2023-12-07 10:43 | ED.LOWEXI1 ---
HPI HPI - Extremity Injury (Lower) General Chief Complaint: Extremity Injury, Lower Stated Complaint: LOWER EXTREMITY INJURY Time Seen by Provider: 12/07/23 10:42 History of Present Illness HPI Narrative: Patient is here complaining of injuring her ankle. Injury occurred just shortly before arrival here today. She is 29 weeks but denies any abdominal or pelvic discomfort since her fall. She has a minor abrasion over the right knee but says it really does not hurt. She does have pain over the lateral aspect of her left ankle. She has no pain over the lateral knee or the left knee at all it is asymptomatic. She was evaluated by myself on arrival here and the only imaging that is necessary would be her left ankle. Related Data Home Medications ?Medication ?Instructions ?Recorded ?Confirmed ondansetron 4 mg disintegrating 4 mg PO Q6H PRN nausea and vomiting 08/01/23 08/01/23 tablet Previous Rx's ?Medication ?Instructions ?Recorded amoxicillin 875 mg-potassium 1 tab PO Q12H #14 tabs 06/29/23 clavulanate 125 mg tablet Allergies Allergy/AdvReac Type Severity Reaction Status Date / Time No Known Drug Allergies Allergy Verified 01/29/23 16:30 Opioid HPI Opioid Management Most Recent Pain and Opioid Data: Last Pain Scale 6 12/07/23 10:54 Last ED Pain Assessment 12/07/23 10:53 PFSH PFS Social History Smoking status: Never smoker Exam Narrative Exam Narrative: Awake alert pleasant. Vitals as noted. Her right knee has complete unrestricted range of motion with no tenderness over the bony landmarks and there is extremely minor abrasion. Moving to her left ankle most of her discomfort is over the lateral malleolus and fifth metatarsal. She has no obvious effusion ecchymosis or hematomas are not seen at this time. She has no discomfort in her left knee. She has no complaints of abdominal discomfort. MDM - Extremity Injury (Lower) MDM Narrative Medical decision making narrative: My preliminary review of the ankle x-ray shows no acute bony abnormality. These findings are consistent with a grade 2 ankle sprain. She is not so we will consider use of crutches to help facilitate her ambulatory activities at home. Nothing other than ice elevation rest and Tylenol were advised Discharge Plan Discharge Stand Alone Forms: Portal Instructions Chief Complaint: Extremity Injury, Lower Clinical Impression: Ankle sprain and strain Patient Disposition: Home, Self-Care Time of Disposition Decision: 11:30 Prescriptions / Home Meds: No Action amoxicillin-pot clavulanate 875-125 mg tablet 1 tab PO Q12H Qty: 14 0RF ondansetron 4 mg tablet,disintegrating 4 mg PO Q6H PRN (Reason: nausea and vomiting) Print Language: Luxembourgish Additional Instructions: Ice elevate crutches Referrals: DUARTE VALDERRAMA [Primary Care Provider] - 1 week
--- OUTSIDE RECORDS SUMMARY | 2023-12-07 10:47 | XMS_ITS | CCD ---
Author Organization [facility] Care Team Providers Care Adolescent Psychiatrist Name Role Phone Farrah Garcia Primary Care Provider VIBHA JOHNSON Attending Unavailable VIBHA JOHNSON Referring Unavailable FARRAH GARCIA Primary Care Unavailable Kelli Oliver Primary Care Physician MISC, DR LORENZANA Primary Care Unavailable MANOJ CUNNINGHAM Consulting Unavailable MANOJ CUNNINGHAM Admitting Unavailable MANOJ CUNNINGHAM Attending Unavailable ILIR JUAERZ Consulting Unavailable JUSTEN, DR GILLESPIE Attending Unavailable [...] [facility] Unavailable JUSTEN, JOSE MIGUEL R Referring Unavailable BERT RDZ Attending Unavailable JUSTEN, JOSE MIGUEL R Referring Unavailable JUSTEN, JOSE MIGUEL Attending Unavailable JUSTEN, JOSE MIGUEL Attending Unavailable MICHAEL CHAN Attending Unavailable JUSTEN, JOSE MIGUEL Attending Unavailable JUSTEN, JOSE MIGUEL Attending Unavailable JUSTEN, JOSE MIGUEL Attending Unavailable JUSTEN, JOSE MIGUEL Attending Unavailable Allergies Allergy Classification Reported Allergen(s) Allergy Type Date of Onset Reaction(s) Facility Unclassified (1 source) ADHESIVE TAPE-SILICONES; 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: [ADHESIVE TAPE-SILICONES] Propensity to adverse reactions to drug (disorder) 4 [facility] (1 source) [facility] Allergy 9 [facility] (2 sources) Wound Dressing Adhesive Drug [...] 02-15-2022 Episodic Other aftercare (1 source) Other fci (current) 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; 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: [OTH METAL OFF BEARER CURRENT DRUG THERAPY] Onset: 02-05-2022 Episodic Other [...] WITH AUTO DIFFon BASOPHILS ABSOLUTE AUTO 0.1 [facility] Basophils/100 WBC (Bld) 0.7 % 0.2 - 2.0 % [facility] Eosinophils/100 WBC (Bld) 2.6 % 0.9 - 7.0 % [facility] Erythrocyte distribution width (RBC) [Ratio] 13.4 % 11.0 - 15.0 % [facility] Hematocrit (Bld) [Volume fraction] 39.0 % 36.0 - 48.0 % [facility] Hemoglobin (Bld) [Mass/Vol] 12.8 g/dL 12.0 - 16.0 g/dL [facility] IMMATURE GRANULOCYTES ABS AUTO 0.01 [facility] Immature granulocytes/100 WBC (Bld) 0.1 % 0.0 - 0.5 % [facility] LYMPHOCYTES ABSOLUTE AUTO 2.2 [facility] Lymphocytes/100 WBC (Bld) 26.1 % 20.5 - 60.0 % [facility] MCH (RBC) [Entitic mass] 28.6 pg 26.7 - 34.0 pg [facility] MCHC (RBC) [Mass/Vol] 32.8 g/dL 29.9 - 35.2 g/dL [facility] MCV (RBC) [Entitic vol] 87.2 fL 81.0 - 99.0 fL [facility] MONOCYTES ABSOLUTE AUTO 0.5 [facility] Monocytes/100 WBC (Bld) 5.7 % 1.7 - 12.0 % [facility] NEUTROPHILS ABSOLUTE AUTO 5.5 [facility] Neutrophils/100 WBC (Bld) 64.8 % 43.0 - 75.0 % [facility] Platelet mean volume (Bld) [Entitic vol] 10.1 fL 9.5 - 13.5 fL [facility] TBH EO # 0.2 [facility] PLT 340 [facility] RBC 4.47 [facility] WBC 8.4 [facility] HCG ( test) Ql (U)o n 07-19-2023 Interpretation and review of laboratory results Abnormal [facility] Preg Test, Ur Positive [facility] Urinalysis macro (dipstick) panel (U)on 07-19-2023 Bilirubin, UA Negative Negative - 4(70) +++ mg/dL [facility] Blood, UA Positive Negative - 50 Anselmo/mcL [facility] Comment on above: moderate Clarity, UA Clear [facility] Color, UA Sharp [facility] Glucose, UA Negative Negative - 2000(110) ++++ mg/dL [facility] Interpretation and review of laboratory results Abnormal [facility] Ketones, UA Positive Negative - 160(16) ++++ mg/dL [facility] Comment on above: trace Leukocytes, UA Positive Negative - 500+++ Monik/mcL [facility] Comment on above: small Nitrite, UA Negative Negative - Positive [facility] pH, UA 6.0 5 - 9 [facility] Protein, UA Positive Negative - 1999(20) ++++ mg/dL [facility] Comment on above: 30 Spec Grav, UA 1.030 1 - 1.03 [facility] Urobilinogen, UA 1.0 0.2 - 12 mg/dL [facility] In office Testingon 09-06-20 23 In office Testing [id number] 1.00CD:127 Normal [facility] CBC AUTO DIFFon 07-30-2022 BASO # 0.1 103/ul Normal 0.0-0.1 [facility] Comment on above: Performed By: #### U RCX #### [facility] [address] [address] [address] Caitlin Martinez Basophils/100 WBC (Bld) 1.1 % Normal 0.2-2.0 [facility] Comment on above: Performed By: #### U RCX #### [facility] [address] [address] [address] Caitlin Martinez EO # 0.3 103/ul Normal 0.0-0.7 [facility] Comment on above: Performed By: #### U RCX #### [facility] [address] [place] [address] Dr. Caitlin Martinez Eosinophils/100 WBC (Bld) 4.7 % Normal 0.9-7.0 [facility] Comment on above: Performed By: #### U RCX #### [facility] [address] [place] [address] Dr. Caitlin Martinez Erythrocyte distribution width (RBC) [Ratio] 14.7 % Normal 11.0-15.0 [facility] Comment on above: Performed By: #### U RCX #### [facility] [address] [place] [address] Dr. Caitlin Martinez Hematocrit (Bld) [Volume fraction] 39.3 % Normal 36.0-48.0 [facility] Comment on above: Performed By: #### U RCX #### [facility] [address] [address] [address] Caitlin Martinez Hemoglobin (Bld) [Mass/Vol] 12.7 g/dL Normal 12.0-16.0 [facility] Comment on above: Performed By: #### U RCX #### [facility] [address] [place] [address] Dr. Caitlin Martinez IG # 0.02 10e3/ul Normal 0.00-0.03 [facility] Comment on above: Performed By: #### U RCX #### [facility] [address] [place] [address] Dr. Caitlin Martinez IG % 0.3 % Normal 0.0-0.5 [facility] Comment on above: Performed By: #### U RCX #### [facility] [address] [address] [address] Caitlin Martinez LYMPH # 2.5 103/ul Normal 1.2-3.8 [facility] Comment on above: Performed By: #### U RCX #### [facility] [address] [place] [address] Dr. Caitlin Martinez Lymphocytes/100 WBC (Bld) 34.5 % Normal 20.5-60.0 [facility] Comment on above: Performed By: #### U RCX #### [facility] [address] [place] [address] Dr. Caitlin Martinez MANUAL DIFF REQ NO Normal [facility] Comment on above: Performed By: #### U RCX #### [facility] [address] [place] [address] Dr. Caitlin Martinez MCH (RBC) [Entitic mass] 27.3 pg Normal 26.7-34.0 [facility] Comment on above: Performed By: #### U RCX #### [facility] [address] [place] [address] Dr. Caitlin Martinez MCHC (RBC) [Mass/Vol] 32.3 g/dL Normal 29.9-35.2 [facility] Comment on above: Performed By: #### U RCX #### [facility] [address] [place] [address] Dr. Caitlin Martinez MCV (RBC) [Entitic vol] 84.5 fL Normal 81.0-99.0 [facility] Comment on above: Performed By: #### U RCX #### [facility] [address] [place] [address] Dr. Caitlin Martinez MONO # 0.5 103/ul Normal 0.3-0.8 [facility] Comment on above: Performed By: #### U RCX #### [facility] [address] [address] [address] Caitlin Martinez Monocytes/100 WBC (Bld) 7.3 % Normal 1.7-12.0 [facility] Comment on above: Performed By: #### U RCX #### [facility] [address] [address] [address] Caitlin Martinez NEUT # 3.8 103/ul Normal 1.4-6.5 [facility] Comment on above: Performed By: #### U RCX #### [facility] [address] [address] [address] Caitlin Martinez Neutrophils/100 WBC (Bld) 52.1 % Normal 43.0-75.0 [facility] Comment on above: Performed By: #### U RCX #### [facility] [address] [place] [address] Dr. Caitlin Martinez Platelet mean volume (Bld) [Entitic vol] 9.0 fL Critically low 9.5-13.5 [facility] Comment on above: Performed By: #### U RCX #### [facility] [address] [place] [address] Dr. Caitlin Martinez PLT 368 103/ul Normal 150-450 [facility] Comment on above: Performed By: #### U RCX #### [facility] [address] [address] [address] Caitlin Martinez RBC 4.65 106/ul Normal 4.20-5.40 [facility] Comment on above: Performed By: #### U RCX #### [facility] [address] [address] [address] Caitlin Martinez WBC 7.2 103/ul Normal 4.0-11.0 [facility] Comment on above: Performed By: #### U RCX #### [facility] [address] [place] [address] Dr. Caitlin Martinez IRONon 07-30-2022 Iron [Mass/Vol] 43.0 ug/dL Critically low 50.0-170.0 [facility] Comment on above: Performed By: #### U RCX #### [facility] [address] [address] [address] Caitlin Martinez PAP ACOG PANEL 2: 22 to 30on 07-30-2022 . . Normal [facility] Comment on above: Performed By: #### U RCX #### [facility] [address] [address] [address] Caitlin Martinez Age Gdln ACOG Testing 22- [facility] Comment on above: Performed By: #### U RCX #### [facility] [address] [address] [address] Caitlin Martinez DIAGNOSIS: Comment [facility] Comment on above: Result Comment: NEGA TIVE FOR INTRAEPITHELIAL LESION OR MALIGNANCY. Performed By: #### U RCX #### [facility] [address] [place] [address] Dr. Caitlin Martinez Methodology: Comment [facility] Comment on above: Result Comment: This liquid based ThinPrep(R) pap test was screened with the use of an image guided system. Performed By: #### U RCX #### [facility] [address] [place] [address] Dr. Caitlin Martinez Note: Comment [facility] Comment on above: Result Comment: The Pap smear is a screening test designed to aid in the detection of premalignant and malignant conditions of the uterine cervix. It is not a diagnostic procedure and should not be used as the sole means of detecting cervical cancer. Both false-positive and false-negative reports do occur. . Performed By: #### U RCX #### [facility] [address] [address] [address] Caitlin Martinez Performed by: Comment Normal [facility] Comment on above: Result Comment: Bhavna Cormier, Nephrology Nurse (ASCP) Performed By: #### U RCX #### [facility] [address] [address] [address] Caitlin Martinez Reflex Criteria: Comment [facility] Comment on above: Result Comment: The HPV DNA reflex criteria were not met with this specimen result therefore, no HPV testing was performed. . Performed By: #### U RCX #### [facility] [address] [place] [address] Dr. Caitlin Martinez Specimen adequacy: Comment Normal [facility] Comment on above: Result Comment: Sati sfactory for evaluation. Endocervical and/or squamous metaplastic cells (endocervical component) are present. Performed By: #### U RCX #### [facility] [address] [place] [address] Dr. Caitlin Martinez INSULINon 04-19-2022 Insulin 9.1 uIU/mL Normal 2.6-24.9 [facility] Comment on above: Performed By: #### I HORACIO #### [facility] [address] [place] [address] Dr. Caitlin Martinez CBC AUTO DIFFon 04-18-2022 BASO # 0.1 103/ul Normal 0.0-0.1 [facility] Comment on above: Performed By: #### U RCX #### [facility] [address] [place] [address] Dr. Caitlin Martinez Basophils/100 WBC (Bld) 1.0 % Normal 0.2-2.0 [facility] Comment on above: Performed By: #### U RCX #### [facility] [address] [place] [address] Dr. Caitlin Martinez EO # 0.3 103/ul Normal 0.0-0.7 [facility] Comment on above: Performed By: #### U RCX #### [facility] [address] [place] [address] Dr. Caitlin Martinez Eosinophils/100 WBC (Bld) 4.1 % Normal 0.9-7.0 [facility] Comment on above: Performed By: #### U RCX #### [facility] [address] [place] [address] Dr. Caitlin Martinez Erythrocyte distribution width (RBC) [Ratio] 16.0 % Critically high 11.0-15.0 [facility] Comment on above: Performed By: #### U RCX #### [facility] [address] [address] [address] Caitlin Martinez Hematocrit (Bld) [Volume fraction] 35.7 % Critically low 36.0-48.0 [facility] Comment on above: Performed By: #### U RCX #### [facility] [address] [address] [address] Caitlin Martinez Hemoglobin (Bld) [Mass/Vol] 10.9 g/dL Critically low 12.0-16.0 [facility] Comment on above: Performed By: #### U RCX #### [facility] [address] [address] [address] Caitlin Martinez IG # 0.07 10e3/ul Critically high 0.00-0.03 [facility] Comment on above: Performed By: #### U RCX #### [facility] [address] [place] [address] Dr. Caitlin Martinez IG % 1.0 % Critically high 0.0-0.5 [facility] Comment on above: Performed By: #### U RCX #### [facility] [address] [place] [address] Dr. Caitlin Martinez LYMPH # 2.3 103/ul Normal 1.2-3.8 [facility] Comment on above: Performed By: #### U RCX #### [facility] [address] [place] [address] Dr. Caitlin Martinez Lymphocytes/100 WBC (Bld) 31.4 % Normal 20.5-60.0 [facility] Comment on above: Performed By: #### U RCX #### [facility] [address] [place] [address] Dr. Caitlin Martinez MANUAL DIFF REQ NO Normal [facility] Comment on above: Performed By: #### U RCX #### [facility] [address] [place] [address] Dr. Caitlin Martinez MCH (RBC) [Entitic mass] 24.8 pg Critically low 26.7-34.0 [facility] Comment on above: Performed By: #### U RCX #### [facility] [address] [address] [address] Caitlin Martinez MCHC (RBC) [Mass/Vol] 30.5 g/dL Normal 29.9-35.2 [facility] Comment on above: Performed By: #### U RCX #### [facility] [address] [address] [address] Caitlin Martinez MCV (RBC) [Entitic vol] 81.1 fL Normal 81.0-99.0 [facility] Comment on above: Performed By: #### U RCX #### [facility] [address] [address] [address] Caitlin Martinez MONO # 0.5 103/ul Normal 0.3-0.8 [facility] Comment on above: Performed By: #### U RCX #### [facility] [address] [place] [address] Dr. Caitlin Martinez Monocytes/100 WBC (Bld) 6.6 % Normal 1.7-12.0 [facility] Comment on above: Performed By: #### U RCX #### [facility] [address] [address] [address] Caitlin Martinez NEUT # 4.1 103/ul Normal 1.4-6.5 [facility] Comment on above: Performed By: #### U RCX #### [facility] [address] [place] [address] Dr. Caitlin Martinez Neutrophils/100 WBC (Bld) 55.9 % Normal 43.0-75.0 [facility] Comment on above: Performed By: #### U RCX #### [facility] [address] [address] [address] Caitlin Martinez Platelet mean volume (Bld) [Entitic vol] 9.4 fL Critically low 9.5-13.5 [facility] Comment on above: Performed By: #### U RCX #### [facility] [address] [place] [address] Dr. Caitlin Martinez PLT 369 103/ul Normal 150-450 [facility] Comment on above: Performed By: #### U RCX #### [facility] [address] [address] [address] Caitlin Martinez RBC 4.40 106/ul Normal 4.20-5.40 [facility] Comment on above: Performed By: #### U RCX #### [facility] [address] [address] [address] Caitlin Martinez WBC 7.3 103/ul Normal 4.0-11.0 [facility] Comment on above: Performed By: #### U RCX #### [facility] [address] [address] [address] Caitlin Martinez FREE THYROXINE INDEX T7on FTI 2.20 Normal 1.30-4.50 [facility] Comment on above: Performed By: #### I HORACIO #### [facility] [address] [place] [address] Dr. Caitlin Martinez T3U 29.0 % Critically low 30.0-39.0 [facility] Comment on above: Performed By: #### I HORACIO #### [facility] [address] [place] [address] Dr. Caitlin Martinez T4 [Mass/Vol] 7.60 ug/dL Normal 4.80-13.90 [facility] Comment on above: Performed By: #### I HORACIO #### [facility] [address] [place] [address] Dr. Caitlin Martinez GLYCOHEMOGLOBIN A1Con 2021 ADA RECOMMENDATION SEE BELOW Normal [facility] Comment on above: Result Comment: ADA RECOMMENDED LIMIT 4.0 - 6.0 ADA THERAPEUTIC TARGET < 7.0 ACTION SUGGESTED > 7.0 Performed By: #### U RCX #### [facility] [address] [place] [address] Dr. Caitlin Martinez Glucose [Mass/Vol] 97 mg/dL Normal [facility] Comment on above: Performed By: #### U RCX #### [facility] [address] [place] [address] Dr. Caitlin Martinez HbA1c (Bld) [Mass fraction] 5.0 % Normal 4.5-6.2 [facility] Comment on above: Performed By: #### U RCX #### [facility] [address] [address] [address] Caitlin Martinez IRONon 04-18-2022 Iron [Mass/Vol] 35.0 ug/dL Critically low 50.0-170.0 [facility] Comment on above: Performed By: #### I HORACIO #### [facility] [address] [address] [address] Caitlin Martinez LIPID PROFILEon 04-18-2022 CHOL-HDL RATIO NORM SEE BELOW Normal [facility] Comment on above: Result Comment: 3.3 - 4.4 LOW RISK 4.4 - 7.1 AVERAGE RISK 7.1 - 11.0 MODERATE RISK >11.0 HIGH RISK Performed By: #### I HORACIO #### [facility] [address] [place] [address] Dr. Caitlin Martinez Cholesterol [Mass/Vol] 221 mg/dL Critically high <=200 [facility] Comment on above: Performed By: #### I HORACIO #### [facility] [address] [place] [address] Dr. Caitlin Matrinez Cholesterol in HDL [Mass/Vol] 67 mg/dL Critically high 40-60 [facility] Comment on above: Performed By: #### I HORACIO #### [facility] [address] [place] [address] Dr. Caitlin Martinez Cholesterol in LDL [Mass/Vol] 142.4 mg/dL Normal [facility] Comment on above: Performed By: #### I HORACIO #### [facility] [address] [address] [address] Caitlin Martinez Cholesterol.total/Cho lesterol in HDL [Mass ratio] 3.3 {ratio} Normal [facility] Comment on above: Performed By: #### I HORACIO #### [facility] [address] [place] [address] Dr. Caitlin Martinez HDL NORMAL > or = 60 mg/dl - LO W CARDIOVASCULAR RISK <40 mg/dl - HIGH CARDIOVASCULAR RISK Normal [facility] Comment on above: Performed By: #### I HORACIO #### [facility] [address] [place] [address] Dr. Caitlin Martinez LDL CALC NORMAL SEE BELOW Normal [facility] Comment on above: Result Comment: <100 mg/dl OPTIMAL 100 - 129 mg/dl NEAR OR ABOVE OPTIMAL 130 - 159 mg/dl BORDERLINE HIGH 160 - 189 mg/dl HIGH >190 mg/dl VERY HIGH Performed By: #### I HORACIO #### [facility] [address] [address] [address] Caitlin Martinez Triglyceride [Mass/Vol] 58 mg/dL Normal <=150 [facility] Comment on above: Performed By: #### I HORACIO #### [facility] [address] [address] [address] Caitlin Martinez VLDL CALC 11.6 mg/dL Normal [facility] Comment on above: Performed By: #### I HORACIO #### [facility] [address] [address] [address] Caitlin Martinez PROF 14(COMP METB)on 022 Albumin [Mass/Vol] 3.8 g/dL Normal 3.4-5.0 [facility] Comment on above: Performed By: #### I HORACIO #### [facility] [address] [address] [address] Caitlin Martinez Albumin/Globulin [Mass ratio] 1.1 {ratio} Normal [facility] Comment on above: Performed By: #### I HORACIO #### [facility] [address] [address] [address] Caitlin Martinez ALP [Catalytic activity/Vol] 132 U/L Critically high 46-116 [facility] Comment on above: Performed By: #### I HORACIO #### [facility] [address] [address] [address] Caitlin Martinez ALT [Catalytic activity/Vol] 55 U/L Normal 14-59 [facility] Comment on above: Performed By: #### I HORACIO #### [facility] [address] [address] [address] Caitlin Martinez Anion gap [Moles/Vol] 12.6 mmol/L Normal [facility] Comment on above: Performed By: #### I HORACIO #### [facility] [address] [place] [address] Dr. Caitlin Martinez AST [Catalytic activity/Vol] 27 U/L Normal 15-37 [facility] Comment on above: Performed By: #### I HORACIO #### [facility] [address] [place] [address] Dr. Caitlin Martinez Bilirubin [Mass/Vol] 0.6 mg/dL Normal 0.2-1.0 [facility] Comment on above: Performed By: #### I HORACIO #### [facility] [address] [place] [address] Dr. Caitlin Martinez Calcium [Mass/Vol] 9.1 mg/dL Normal 8.5-10.1 [facility] Comment on above: Performed By: #### I HORACIO #### [facility] [address] [place] [address] Dr. Caitlin Martinez Chloride [Moles/Vol] 106 mmol/L Normal 98-107 [facility] Comment on above: Performed By: #### I HORACIO #### [facility] [address] [place] [address] Dr. Caitlin Martinez CO2 [Moles/Vol] 26.5 mmol/L Normal 21.0-32.0 [facility] Comment on above: Performed By: #### I HORACIO #### [facility] [address] [place] [address] Dr. Caitlin Martinez Creatinine [Mass/Vol] 0.63 mg/dL Normal 0.55-1.02 [facility] Comment on above: Performed By: #### I HORACIO #### [facility] [address] [place] [address] Dr. Caitlin Martinez EGFR-AF JAPANESE >60 Normal >=60 [facility] Comment on above: Performed By: #### I HORACIO #### [facility] [address] [place] [address] Dr. Caitlin Martinez EGFR-NON AF JAPANESE >60 Normal >=60 [facility] Comment on above: Performed By: #### I HORACIO #### [facility] [address] [place] [address] Dr. Caitlin Martinez Globulin (S) [Mass/Vol] 3.6 g/dL Normal [facility] Comment on above: Performed By: #### I HORACIO #### [facility] [address] [place] [address] Dr. Caitlin Martinez Glucose [Mass/Vol] 98 mg/dL Normal 74-106 [facility] Comment on above: Performed By: #### I HORACIO #### [facility] [address] [address] [address] Caitlin Martinez Potassium [Moles/Vol] 4.1 mmol/L Normal 3.5-5.1 [facility] Comment on above: Performed By: #### I HORACIO #### [facility] [address] [place] [address] Dr. Caitlin Martinez Protein [Mass/Vol] 7.4 g/dL Normal 6.4-8.2 [facility] Comment on above: Performed By: #### I HORACIO #### The [facility] [address] [place] [address] Dr. Caitlin Martinze Sodium [Moles/Vol] 141 mmol/L Normal 136-145 [facility] Comment on above: Performed By: #### I HORACIO #### [facility] [address] [place] [address] Dr. Caitlin Martinez Urea nitrogen [Mass/Vol] 9.0 mg/dL Normal 7.0-18.0 [facility] Comment on above: Performed By: #### I HORACIO #### [facility] [address] [place] [address] Dr. Caitlin Martinez Urea nitrogen/Creatinine [Mass ratio] 14.3 mg/mg Normal [facility] Comment on above: Performed By: #### I HORACIO #### [facility] [address] [place] [address] Dr. Caitlin Martinez TSHon 04-18-2022 TSH 1.349 uIU/mL Normal 0.358-3.740 [facility] Comment on above: Performed By: #### I HORACIO #### [facility] [address] [place] [address] Dr. Caitlin Martinez ANTIBODY ID PANELon 02-15-20 22 ANTIBODY ID PANEL Antibody ID Anti-D Blood Bank Notes most likely due to Rhogam given on 12/01/21 Normal The [facility] Comment on above: Performed By: #### D IRCMBTRACY #### [facility] [address] [place] [address] Dr. Caitlin Martinez CTA CHEST WO W [...] GAGANDEEP WHEELER Date: 2022-02-10 22:55 Normal The [facility] CBC AUTO DIFFon 02-10-2022 BASO # 0.1 103/ul Normal 0.0-0.1 [facility] Comment on above: Performed By: #### C BC #### [facility] [address] [place] [address] Dr. Caitlin Martinez Basophils/100 WBC (Bld) 0.4 % Normal 0.2-2.0 [facility] Comment on above: Performed By: #### C BC #### [facility] [address] [place] [address] Dr. Caitlin Martinez EO # 0.5 103/ul Normal 0.0-0.7 [facility] Comment on above: Performed By: #### C BC #### [facility] [address] [place] [address] Dr. Caitlin Martinez Eosinophils/100 WBC (Bld) 4.2 % Normal 0.9-7.0 [facility] Comment on above: Performed By: #### C BC #### [facility] [address] [place] [address] Dr. Caitlin Martinez Erythrocyte distribution width (RBC) [Ratio] 14.7 % Normal 11.0-15.0 [facility] Comment on above: Performed By: #### C BC #### [facility] [address] [place] [address] Dr. Caitlin Martinez Hematocrit (Bld) [Volume fraction] 31.1 % Critically low 36.0-48.0 [facility] Comment on above: Performed By: #### C BC #### [facility] [address] [place] [address] Dr. Caitlin Martinez Hemoglobin (Bld) [Mass/Vol] 9.6 g/dL Critically low 12.0-16.0 [facility] Comment on above: Performed By: #### C BC #### [facility] [address] [place] [address] Dr. Caitlin Martinez IG # 0.28 10e3/ul Critically high 0.00-0.03 [facility] Comment on above: Performed By: #### C BC #### [facility] [address] [place] [address] Dr. Caitlin Martinez IG % 2.3 % Critically high 0.0-0.5 [facility] Comment on above: Performed By: #### C BC #### [facility] [address] [place] [address] Dr. Caitlin Martinez LYMPH # 3.3 103/ul Normal 1.2-3.8 [facility] Comment on above: Performed By: #### C BC #### [facility] [address] [place] [address] Dr. Caitlin Martinez Lymphocytes/100 WBC (Bld) 26.9 % Normal 20.5-60.0 [facility] Comment on above: Performed By: #### C BC #### [facility] [address] [place] [address] Dr. Caitlin Martinez MANUAL DIFF REQ NO Normal [facility] Comment on above: Performed By: #### C BC #### [facility] [address] [address] [address] Caitlin Martinez MCH (RBC) [Entitic mass] 26.2 pg Critically low 26.7-34.0 [facility] Comment on above: Performed By: #### C BC #### [facility] [address] [place] [address] Dr. Caitlin Martinez MCHC (RBC) [Mass/Vol] 30.9 g/dL Normal 29.9-35.2 [facility] Comment on above: Performed By: #### C BC #### [facility] [address] [place] [address] Dr. Caitlin Martinez MCV (RBC) [Entitic vol] 84.7 fL Normal 81.0-99.0 [facility] Comment on above: Performed By: #### C BC #### [facility] [address] [place] [address] Dr. Caitlin Martinez MONO # 1.1 103/ul Critically high 0.3-0.8 [facility] Comment on above: Performed By: #### C BC #### [facility] [address] [place] [address] Dr. Caitlin Martinez Monocytes/100 WBC (Bld) 8.7 % Normal 1.7-12.0 [facility] Comment on above: Performed By: #### C BC #### [facility] [address] [place] [address] Dr. Caitlin Martinez NEUT # 7.0 103/ul Critically high 1.4-6.5 [facility] Comment on above: Performed By: #### C BC #### [facility] [address] [place] [address] Dr. Caitlin Martinez Neutrophils/100 WBC (Bld) 57.5 % Normal 43.0-75.0 [facility] Comment on above: Performed By: #### C BC #### [facility] [address] [place] [address] Dr. Caitlin Martinez Platelet mean volume (Bld) [Entitic vol] 9.1 fL Critically low 9.5-13.5 [facility] Comment on above: Performed By: #### C BC #### [facility] [address] [address] [address] Caitlin Martinez PLT 437 103/ul Normal 150-450 [facility] Comment on above: Performed By: #### C BC #### [facility] [address] [address] [address] Caitlin Martinez RBC 3.67 106/ul Critically low 4.20-5.40 [facility] Comment on above: Performed By: #### C BC #### [facility] [address] [address] [address] Caitlin Martinez WBC 12.3 103/ul Critically high 4.0-11.0 [facility] Comment on above: Performed By: #### C BC #### [facility] [address] [place] [address] Dr. Caitlin Martinez Covid-19 PCR ([facility])on 01-16 SARS-CoV-2 (COVID-19) RNA JONATAN+probe Ql (Unsp spec) Not detected Normal NOT DETECTED The [facility] Comment on above: Result Comment: When diagnostic [...] for this test is supported by the [employer] of [employer] and Human Service's declaration that [...] used). Performed By: #### C VDTBH #### [facility] [address] [place] [address] Dr. Caitlin Martinez PROF 14(COMP METB)on 022 Albumin [Mass/Vol] 2.1 g/dL Critically low 3.4-5.0 [facility] Comment on above: Performed By: #### U RCX #### [facility] [address] [place] [address] Dr. Caitlin Martinez Albumin/Globulin [Mass ratio] 0.5 {ratio} Normal [facility] Comment on above: Performed By: #### U RCX #### [facility] [address] [place] [address] Dr. Caitlin Martinez ALP [Catalytic activity/Vol] 202 U/L Critically high 46-116 [facility] Comment on above: Performed By: #### U RCX #### [facility] [address] [place] [address] Dr. Caitlin Martinez ALT [Catalytic activity/Vol] 20 U/L Normal 14-59 [facility] Comment on above: Performed By: #### U RCX #### [facility] [address] [place] [address] Dr. Caitlin Martinez Anion gap [Moles/Vol] 11.6 mmol/L Normal [facility] Comment on above: Performed By: #### U RCX #### [facility] [address] [place] [address] Dr. Caitlin Martinez AST [Catalytic activity/Vol] 17 U/L Normal 15-37 [facility] Comment on above: Performed By: #### U RCX #### [facility] [address] [place] [address] Dr. Caitlin Martinez Bilirubin [Mass/Vol] 0.3 mg/dL Normal 0.2-1.0 [facility] Comment on above: Performed By: #### U RCX #### [facility] [address] [place] [address] Dr. Caitlin Martinez Calcium [Mass/Vol] 9.2 mg/dL Normal 8.5-10.1 [facility] Comment on above: Performed By: #### U RCX #### [facility] [address] [place] [address] Dr. Caitlin Martinez Chloride [Moles/Vol] 104 mmol/L Normal 98-107 [facility] Comment on above: Performed By: #### U RCX #### [facility] [address] [address] [address] Caitlin Martinez CO2 [Moles/Vol] 26.9 mmol/L Normal 21.0-32.0 [facility] Comment on above: Performed By: #### U RCX #### [facility] [address] [address] [address] Caitlin Martinez Creatinine [Mass/Vol] 0.56 mg/dL Normal 0.55-1.02 [facility] Comment on above: Performed By: #### U RCX #### [facility] [address] [place] [address] Dr. Caitlin Martinez EGFR-AF JAPANESE >60 Normal >=60 [facility] Comment on above: Performed By: #### U RCX #### [facility] [address] [place] [address] Dr. Caitlin Martinez EGFR-NON AF JAPANESE >60 Normal >=60 [facility] Comment on above: Performed By: #### U RCX #### [facility] [address] [place] [address] Dr. Caitlin Martinez Globulin (S) [Mass/Vol] 4.4 g/dL Normal [facility] Comment on above: Performed By: #### U RCX #### [facility] [address] [place] [address] Dr. Caitlin Martinez Glucose [Mass/Vol] 108 mg/dL Critically high 74-106 [facility] Comment on above: Performed By: #### U RCX #### [facility] [address] [address] [address] Caitlin Martinez Potassium [Moles/Vol] 3.5 mmol/L Normal 3.5-5.1 [facility] Comment on above: Performed By: #### U RCX #### [facility] [address] [place] [address] Dr. Caitlin Martinez Protein [Mass/Vol] 6.5 g/dL Normal 6.4-8.2 [facility] Comment on above: Performed By: #### U RCX #### [facility] [address] [place] [address] Dr. Caitlin Martinez Sodium [Moles/Vol] 139 mmol/L Normal 136-[address] [facility] Comment on above: Performed By: #### U RCX #### [facility] [address] [place] [address] Dr. Caitlin Martinez Urea nitrogen [Mass/Vol] 7.0 mg/dL Normal 7.0-18.0 [facility] Comment on above: Performed By: #### U RCX #### [facility] [address] [place] [address] Dr. Caitlin Martinez Urea nitrogen/Creatinine [Mass ratio] 12.5 mg/mg Normal [facility] Comment on above: Performed By: #### U RCX #### [facility] [address] [place] [address] Dr. Caitlin Martinez TROPONIN, HIGH SENSITIVITYon 02-10-2022 HSTROP <4.0 Normal 4.0-51.3 [facility] Comment on above: Result Comment: CUT- OFF POINTS HAVE BEEN ESTABLISHED BASED ON THE FOURTH UNIVERSAL DEFINITIONS OF MYOCARDIAL INFARCTION. THE UPPER REFERENCE LIMIT (URL) OF TROPONIN, DEFINED THE 99TH PERCENTILE OF cTnI DISTRIBUTION IN A REFERENCE POPULATION, HAS BEEN CONFIRMED THE DECISION THRESHOLD FOR CA DIAGNOSIS. Performed By: #### U RCX #### [facility] [address] [place] [address] Dr. Caitlin Martinez CBC AUTO DIFFon 02-09-2022 BASO # 0.1 103/ul Normal 0.0-0.1 [facility] Comment on above: Performed By: #### U RCX #### [facility] [address] [place] [address] Dr. Caitlin Martinez Basophils/100 WBC (Bld) 0.6 % Normal 0.2-2.0 [facility] Comment on above: Performed By: #### U RCX #### [facility] [address] [place] [address] Dr. Caitlin Martinez EO # 0.3 103/ul Normal 0.0-0.7 [facility] Comment on above: Performed By: #### U RCX #### [facility] [address] [place] [address] Dr. Caitlin Martinez Eosinophils/100 WBC (Bld) 2.3 % Normal 0.9-7.0 [facility] Comment on above: Performed By: #### U RCX #### [facility] [address] [place] [address] Dr. Caitlin Martinez Erythrocyte distribution width (RBC) [Ratio] 14.6 % Normal 11.0-15.0 [facility] Comment on above: Performed By: #### U RCX #### [facility] [address] [place] [address] Dr. Caitlin Martinez Hematocrit (Bld) [Volume fraction] 28.8 % Critically low 36.0-48.0 [facility] Comment on above: Performed By: #### U RCX #### [facility] [address] [place] [address] Dr. Caitlin Martinez Hemoglobin (Bld) [Mass/Vol] 9.0 g/dL Critically low 12.0-16.0 [facility] Comment on above: Performed By: #### U RCX #### [facility] [address] [place] [address] Dr. Caitlin Martinez IG # 0.20 10e3/ul Critically high 0.00-0.03 [facility] Comment on above: Performed By: #### U RCX #### [facility] [address] [place] [address] Dr. Caitlin Martinez IG % 1.5 % Critically high 0.0-0.5 [facility] Comment on above: Performed By: #### U RCX #### [facility] [address] [place] [address] Dr. Caitlin Martinez LYMPH # 3.0 103/ul Normal 1.2-3.8 The [facility] Comment on above: Performed By: #### U RCX #### [facility] [address] [place] [address] Dr. Caitlin Martinez Lymphocytes/100 WBC (Bld) 22.2 % Normal 20.5-60.0 The [facility] Comment on above: Performed By: #### U RCX #### [facility] [address] [place] [address] Dr. Caitlin Martinez MANUAL DIFF REQ NO Normal [facility] Comment on above: Performed By: #### U RCX #### [facility] [address] [place] [address] Dr. Caitlin Martinez MCH (RBC) [Entitic mass] 26.2 pg Critically low 26.7-34.0 The [facility] Comment on above: Performed By: #### U RCX #### [facility] [address] [place] [address] Dr. Caitlin Martinez MCHC (RBC) [Mass/Vol] 31.3 g/dL Normal 29.9-35.2 The [facility] Comment on above: Performed By: #### U RCX #### [facility] [address] [place] [address] Dr. Caitlin Martinez MCV (RBC) [Entitic vol] 83.7 fL Normal 81.0-99.0 The [facility] Comment on above: Performed By: #### U RCX #### [facility] [address] [place] [address] Dr. Caitlin Martinez MONO # 1.3 103/ul Critically high 0.3-0.8 [facility] Comment on above: Performed By: #### U RCX #### [facility] [address] [place] [address] Dr. Caitlin Martinez Monocytes/100 WBC (Bld) 9.8 % Normal 1.7-12.0 The [facility] Comment on above: Performed By: #### U RCX #### [facility] [address] [place] [address] Dr. Caitlin Martinez NEUT # 8.5 103/ul Critically high 1.4-6.5 [facility] Comment on above: Performed By: #### U RCX #### [facility] [address] [place] [address] Dr. Caitlin Martinez Neutrophils/100 WBC (Bld) 63.6 % Normal 43.0-75.0 [facility] Comment on above: Performed By: #### U RCX #### [facility] [address] [place] [address] Dr. Caitlin Martinez Platelet mean volume (Bld) [Entitic vol] 9.1 fL Critically low 9.5-13.5 The [facility] Comment on above: Performed By: #### U RCX #### [facility] [address] [place] [address] Dr. Caitlin Martinez PLT 355 103/ul Normal 150-450 [facility] Comment on above: Performed By: #### U RCX #### [facility] [address] [place] [address] Dr. Caitlin Martinez RBC 3.44 106/ul Critically low 4.20-5.40 [facility] Comment on above: Performed By: #### U RCX #### [facility] [address] [place] [address] Dr. Caitlin Martinez WBC 13.3 103/ul Critically high 4.0-11.0 The [facility] Comment on above: Performed By: #### U RCX #### [facility] [address] [place] [address] Dr. Caitlin Martinez SCREENon 02-09-2022 SCREEN Negative Normal [facility] Comment on above: Performed By: #### F ETSCRN #### [facility] [address] [place] [address] Dr. Caitlin Martinez CBC AUTO DIFFon 02-08-2022 BASO # 0.1 103/ul Normal 0.0-0.1 [facility] Comment on above: Performed By: #### U RCX #### [facility] [address] [place] [address] Dr. Caitlin Martinez Basophils/100 WBC (Bld) 0.4 % Normal 0.2-2.0 The [facility] Comment on above: Performed By: #### U RCX #### [facility] [address] [place] [address] Dr. Caitlin Martinez EO # 0.3 103/ul Normal 0.0-0.7 [facility] Comment on above: Performed By: #### U RCX #### [facility] [address] [address] [address] Caitlin Martinez Eosinophils/100 WBC (Bld) 2.6 % Normal 0.9-7.0 [facility] Comment on above: Performed By: #### U RCX #### [facility] [address] [address] [address] Caitlin Martinez Erythrocyte distribution width (RBC) [Ratio] 14.7 % Normal 11.0-15.0 [facility] Comment on above: Performed By: #### U RCX #### [facility] [address] [place] [address] Dr. Caitlin Martinez Hematocrit (Bld) [Volume fraction] 30.6 % Critically low 36.0-48.0 [facility] Comment on above: Performed By: #### U RCX #### [facility] [address] [place] [address] Dr. Caitlin Martinez Hemoglobin (Bld) [Mass/Vol] 9.7 g/dL Critically low 12.0-16.0 [facility] Comment on above: Performed By: #### U RCX #### [facility] [address] [place] [address] Dr. Caitlin Martinez IG # 0.15 10e3/ul Critically high 0.00-0.03 [facility] Comment on above: Performed By: #### U RCX #### [facility] [address] [place] [address] Dr. Caitlin Martinez IG % 1.3 % Critically high 0.0-0.5 [facility] Comment on above: Performed By: #### U RCX #### [facility] [address] [place] [address] Dr. Caitlin Martinez LYMPH # 2.8 103/ul Normal 1.2-3.8 The [facility] Comment on above: Performed By: #### U RCX #### [facility] [address] [place] [address] Dr. Caitlin Martinez Lymphocytes/100 WBC (Bld) 24.8 % Normal 20.5-60.0 The [facility] Comment on above: Performed By: #### U RCX #### [facility] [address] [place] [address] Dr. Caitlin Martinez MANUAL DIFF REQ NO Normal [facility] Comment on above: Performed By: #### U RCX #### [facility] [address] [address] [address] Caitlin Martinez MCH (RBC) [Entitic mass] 26.6 pg Critically low 26.7-34.0 The [facility] Comment on above: Performed By: #### U RCX #### [facility] [address] [place] [address] Dr. Caitlin Martinez MCHC (RBC) [Mass/Vol] 31.7 g/dL Normal 29.9-35.2 The [facility] Comment on above: Performed By: #### U RCX #### [facility] [address] [place] [address] Dr. Caitlin Martinez MCV (RBC) [Entitic vol] 83.8 fL Normal 81.0-99.0 The [facility] Comment on above: Performed By: #### U RCX #### [facility] [address] [place] [address] Dr. Caitlin Martinez MONO # 1.0 103/ul Critically high 0.3-0.8 [facility] Comment on above: Performed By: #### U RCX #### [facility] [address] [place] [address] Dr. Caitlin Martinez Monocytes/100 WBC (Bld) 8.7 % Normal 1.7-12.0 The [facility] Comment on above: Performed By: #### U RCX #### [facility] [address] [place] [address] Dr. Caitlin Martinez NEUT # 7.0 103/ul Critically high 1.4-6.5 [facility] Comment on above: Performed By: #### U RCX #### [facility] [address] [address] [address] Caitlin Martinez Neutrophils/100 WBC (Bld) 62.2 % Normal 43.0-75.0 [facility] Comment on above: Performed By: #### U RCX #### [facility] [address] [address] [address] Caitlin Martinez Platelet mean volume (Bld) [Entitic vol] 9.0 fL Critically low 9.5-13.5 [facility] Comment on above: Performed By: #### U RCX #### [facility] [address] [address] [address] Caitlin Martinez PLT 373 103/ul Normal 150-450 [facility] Comment on above: Performed By: #### U RCX #### [facility] [address] [address] [address] Caitlin Martinez RBC 3.65 106/ul Critically low 4.20-5.40 [facility] Comment on above: Performed By: #### U RCX #### [facility] [address] [address] [address] Caitlin Martinez WBC 11.3 103/ul Critically high 4.0-11.0 [facility] Comment on above: Performed By: #### U RCX #### [facility] [address] [address] [address] Caitlin Martinez [facility] SARS-CoV-2 (COVID-19) RNA JONATAN+probe Ql (Unsp spec) Not detected Normal NOT DETECTED The [facility] Comment on above: Result Comment: When diagnostic [...] for this test is supported by the [employer] of [employer] and Human Service's declaration that [...] used). Performed By: #### C BC #### [facility] [address] [place] [address] Dr. Caitlin Martinez DIRECT COOMBSon 02-08-2022 DIRECT EDWINA Negative Normal [facility] Comment on above: Performed By: #### D IRCMB, ABID #### [facility] [address] [place] [address] Dr. Caitlin Martinez DRUG SCREEN RAPID (URINE)on 02-08-2022 AMP Negative Normal NEGATIVE [facility] Comment on above: Performed By: #### C BC #### [facility] [address] [place] [address] Dr. Caitlin Martinez BAR Negative Normal NEGATIVE [facility] Comment on above: Performed By: #### C BC #### [facility] [address] [place] [address] Dr. Caitlin Martinez BUP Negative Normal NEGATIVE [facility] Comment on above: Performed By: #### C BC #### [facility] [address] [place] [address] Dr. Caitlin Martinez BZO Negative Normal NEGATIVE [facility] Comment on above: Performed By: #### C BC #### [facility] [address] [place] [address] Dr. Caitlin Martinez JEANNA Negative Normal NEGATIVE [facility] Comment on above: Performed By: #### C BC #### [facility] [address] [place] [address] Dr. Caitlin Martinez CUT-OFFS SEE BELOW Normal [facility] Comment on above: Result Comment: AMP [...] ng/mL Performed By: #### C BC #### [facility] [address] [place] [address] Dr. Caitlin Martinez DRUG CUT HEADER DRUG CLASS TEST SYSTEM CUT-OFF CONCENTRATIONS ARE FOLLOWS: Normal [facility] Comment on above: Performed By: #### C BC #### [facility] [address] [place] [address] Dr. Caitlin Martinez mAMP Negative Normal NEGATIVE [facility] Comment on above: Performed By: #### C BC #### [facility] [address] [place] [address] Dr. Caitlin Martinez MTD Negative Normal NEGATIVE [facility] Comment on above: Performed By: #### C BC #### [facility] [address] [place] [address] Dr. Caitlin Martinez OPI Negative Normal NEGATIVE [facility] Comment on above: Performed By: #### C BC #### [facility] [address] [place] [address] Dr. Caitlin Martinez OXY Negative Normal NEGATIVE [facility] Comment on above: Performed By: #### C BC #### [facility] [address] [place] [address] Dr. Caitlin Martinez PCP Negative Normal NEGATIVE [facility] Comment on above: Performed By: #### C BC #### [facility] [address] [place] [address] Dr. Caitlin Martinez PPX Negative Normal NEGATIVE [facility] Comment on above: Performed By: #### C BC #### [facility] [address] [place] [address] Dr. Caitlin Martinez TCA Negative Normal NEGATIVE [facility] Comment on above: Performed By: #### C BC #### [facility] [address] [place] [address] Dr. Caitlin Martinez THC Negative Normal NEGATIVE [facility] Comment on above: Performed By: #### C BC #### [facility] [address] [place] [address] Dr. Caitlin Martinez TYPE AND SCREENon 02-08-2022 TYPE AND SCREEN Negative Normal [facility] Comment on above: Performed By: #### I HORACIO #### [facility] [address] [place] [address] Dr. Caitlin Martinez US PREG BIOPHY W [...] DAVID BLACKMON Date: 2022-02-05 16:28 Normal The [facility] AMNISUREon 01-25-2022 AMNISURE Negative Normal NEGATIVE [facility] Comment on above: Performed By: #### A MNI #### [facility] [address] [place] [address] Dr. Caitlin Martinez CULTURE URINEon 01-25-2022 CULTURE URINE Culture Observations : No growth Normal [facility] Comment on above: Performed By: #### U RCX #### [facility] [address] [place] [address] Dr. Caitlin Martinez UA (CLEAN/CATCH) COMMUNITY EDUCATION COORDINATOR/MICRO I F IND.on 01-25-2022 Bilirubin Ql (U) Negative Normal NEGATIVE The [facility] Comment on above: Performed By: #### C VDTBH #### [facility] [address] [place] [address] Dr. Caitlin Martinez Clarity (U) SL CLOUDY Abnormal CLEAR [facility] Comment on above: Performed By: #### C VDTBH #### [facility] [address] [place] [address] Dr. Caitlin Martinez Color (U) LT. YELLOW Normal YELLOW [facility] Comment on above: Performed By: #### C VDTBH #### [facility] [address] [place] [address] Dr. Caitlin Martinez Glucose Ql (U) Negative Normal NEGATIVE [facility] Comment on above: Performed By: #### C VDTBH #### [facility] [address] [place] [address] Dr. Caitlin Martinez Hemoglobin Ql (U) TRACE-INTACT Abnormal NEGATIVE [facility] Comment on above: Performed By: #### C VDTBH #### [facility] [address] [place] [address] Dr. Caitlin Martinez Ketones Ql (U) Negative Normal NEGATIVE [facility] Comment on above: Performed By: #### C VDTBH #### [facility] [address] [place] [address] Dr. Caitlin Martinez LEUKOCYTES TRACE Abnormal NEGATIVE [facility] Comment on above: Performed By: #### C VDTBH #### [facility] [address] [place] [address] Dr. Caitlin Martinez Nitrite Ql (U) Negative Normal NEGATIVE [facility] Comment on above: Performed By: #### C VDTBH #### [facility] [address] [place] [address] Dr. Caitlin Martinez pH (U) 6.5 [pH] Normal 5-9 [facility] Comment on above: Performed By: #### C VDTBH #### [facility] [address] [place] [address] Dr. Caitlin Martinez SPEC GRAVITY 1.020 Normal 1.005-<=1.025 [facility] Comment on above: Performed By: #### C VDTBH #### [facility] [address] [place] [address] Dr. Caitlin Martinez UA PROTEIN Negative Normal NEGATIVE/ TRACE [facility] Comment on above: Performed By: #### C VDTBH #### [facility] [address] [place] [address] Dr. Caitlin Martinez UR MICRO IND INDICATED Normal [facility] Comment on above: Performed By: #### C VDTBH #### [facility] [address] [place] [address] Dr. Caitlin Martinez Urobilinogen Qn (U) 0.2 {Barbara'U}/dL Normal 0.2 - 1. 0 The [facility] Comment on above: Performed By: #### C VDTBH #### [facility] [address] [place] [address] Dr. Caitlin Martinez URINE MICROSCOPIC ONLYon BACTERIA MODERATE Abnormal NONE SEEN The [facility] Comment on above: Performed By: #### C VDTBH #### [facility] [address] [place] [address] Dr. Caitlin Martinez Bacteria identified Cx Nom (U) INDICATED Normal [facility] Comment on above: Performed By: #### C VDTBH #### [facility] [address] [place] [address] Dr. Caitlin Martinez CAST NONE SEEN Normal NONE SEEN [facility] Comment on above: Performed By: #### C VDTBH #### [facility] [address] [place] [address] Dr. Caitlin Martinez Crystals LM Nom (Urine sed) NONE SEEN Normal NONE SEEN The [facility] Comment on above: Performed By: #### C VDTBH #### [facility] [address] [place] [address] Dr. Caitlin Martinez Epithelial cells LM Ql (Urine sed) FEW Abnormal NONE SEEN /RARE [facility] Comment on above: Performed By: #### C VDTBH #### [facility] [address] [place] [address] Dr. Caitlin Martinez MUCOUS TRACE Abnormal NONE SEEN The [facility] Comment on above: Performed By: #### C VDTBH #### [facility] [address] [place] [address] Dr. Caitlin Martinez RBC 2-5 Abnormal 0-2 [facility] Comment on above: Performed By: #### C VDTBH #### [facility] [address] [place] [address] Dr. Caitlin Martinez WBC 0-2 Abnormal NONE SEEN The [facility] Comment on above: Performed By: #### C VDTBH #### [facility] [address] [place] [address] Dr. Caitlin Martinez AMYLASEon 01-16-2022 Amylase [Catalytic activity/Vol] 49 U/L Normal 25-115 [facility] Comment on above: Performed By: #### C VDTBH #### [facility] [address] [place] [address] Dr. Caitlin Martinez BUNon 01-16-2022 Urea nitrogen [Mass/Vol] 3.0 mg/dL Critically low 7.0-18.0 [facility] Comment on above: Performed By: #### C BC #### [facility] [address] [place] [address] Dr. Caitlin Martinez CBC AUTO DIFFon 01-16-2022 BASO # 0.1 103/ul Normal 0.0-0.1 [facility] Comment on above: Performed By: #### U RCX #### [facility] [address] [place] [address] Dr. Caitlin Martinez Basophils/100 WBC (Bld) 0.6 % Normal 0.2-2.0 [facility] Comment on above: Performed By: #### U RCX #### [facility] [address] [place] [address] Dr. Caitlin Martinez EO # 0.3 103/ul Normal 0.0-0.7 [facility] Comment on above: Performed By: #### U RCX #### [facility] [address] [place] [address] Dr. Caitlin Martinez Eosinophils/100 WBC (Bld) 2.6 % Normal 0.9-7.0 [facility] Comment on above: Performed By: #### U RCX #### [facility] [address] [place] [address] Dr. Caitlin Martinez Erythrocyte distribution width (RBC) [Ratio] 14.4 % Normal 11.0-15.0 [facility] Comment on above: Performed By: #### U RCX #### [facility] [address] [address] [address] Caitlin Martinez Hematocrit (Bld) [Volume fraction] 28.4 % Critically low 36.0-48.0 [facility] Comment on above: Performed By: #### U RCX #### [facility] [address] [place] [address] Dr. Caitlin Martinez Hemoglobin (Bld) [Mass/Vol] 9.0 g/dL Critically low 12.0-16.0 [facility] Comment on above: Performed By: #### U RCX #### [facility] [address] [place] [address] Dr. Caitlin Martinez IG # 0.11 10e3/ul Critically high 0.00-0.03 [facility] Comment on above: Performed By: #### U RCX #### [facility] [address] [place] [address] Dr. Caitlin Martinez IG % 1.1 % Critically high 0.0-0.5 [facility] Comment on above: Performed By: #### U RCX #### [facility] [address] [address] [address] Caitlin Martinez LYMPH # 2.2 103/ul Normal 1.2-3.8 [facility] Comment on above: Performed By: #### U RCX #### [facility] [address] [place] [address] Dr. Caitlin Martinez Lymphocytes/100 WBC (Bld) 21.0 % Normal 20.5-60.0 [facility] Comment on above: Performed By: #### U RCX #### [facility] [address] [place] [address] Dr. Caitlin Martinez MANUAL DIFF REQ NO Normal [facility] Comment on above: Performed By: #### U RCX #### [facility] [address] [place] [address] Dr. Caitlin Martinez MCH (RBC) [Entitic mass] 28.2 pg Normal 26.7-34.0 [facility] Comment on above: Performed By: #### U RCX #### [facility] [address] [address] [address] Caitlin Martinez MCHC (RBC) [Mass/Vol] 31.7 g/dL Normal 29.9-35.2 [facility] Comment on above: Performed By: #### U RCX #### [facility] [address] [address] [address] Caitlin Martinez MCV (RBC) [Entitic vol] 89.0 fL Normal 81.0-99.0 [facility] Comment on above: Performed By: #### U RCX #### [facility] [address] [address] [address] Caitlin Martinez MONO # 0.9 103/ul Critically high 0.3-0.8 [facility] Comment on above: Performed By: #### U RCX #### [facility] [address] [place] [address] Dr. Caitlin Martinez Monocytes/100 WBC (Bld) 8.9 % Normal 1.7-12.0 [facility] Comment on above: Performed By: #### U RCX #### [facility] [address] [address] [address] Caitlin Martinez NEUT # 6.8 103/ul Critically high 1.4-6.5 [facility] Comment on above: Performed By: #### U RCX #### [facility] [address] [place] [address] Dr. Caitlin Martinez Neutrophils/100 WBC (Bld) 65.8 % Normal 43.0-75.0 The [facility] Comment on above: Performed By: #### U RCX #### [facility] [address] [address] [address] Caitlin Martinez Platelet mean volume (Bld) [Entitic vol] 8.6 fL Critically low 9.5-13.5 [facility] Comment on above: Performed By: #### U RCX #### [facility] [address] [address] [address] Caitlin Martinez PLT 322 103/ul Normal 150-450 [facility] Comment on above: Performed By: #### U RCX #### [facility] [address] [address] [address] Caitlin Martinez RBC 3.19 106/ul Critically low 4.20-5.40 [facility] Comment on above: Performed By: #### U RCX #### [facility] [address] [place] [address] Dr. Caitlin Martinez WBC 10.3 103/ul Normal 4.0-11.0 [facility] Comment on above: Performed By: #### U RCX #### [facility] [address] [address] [address] Caitlin Martinez CREATININEon 01-16-2022 Creatinine [Mass/Vol] 0.55 mg/dL Normal 0.55-1.02 [facility] Comment on above: Performed By: #### C VDTBH #### [facility] [address] [place] [address] Dr. Caitlin Martinez EGFR-AF JAPANESE >60 Normal >=60 [facility] Comment on above: Performed By: #### C VDTBH #### [facility] [address] [place] [address] Dr. Caitlin Martinez EGFR-NON AF JAPANESE >60 Normal >=60 [facility] Comment on above: Performed By: #### C VDTBH #### [facility] [address] [place] [address] Dr. Caitlin Martinez ELECTROLYTESon 01-16-2022 Anion gap [Moles/Vol] 13.6 mmol/L Normal [facility] Comment on above: Performed By: #### C VDTBH #### [facility] [address] [place] [address] Dr. Caitlin Martinez Chloride [Moles/Vol] 106 mmol/L Normal 98-107 [facility] Comment on above: Performed By: #### C VDTBH #### [facility] [address] [place] [address] Dr. Caitlin Martinez CO2 [Moles/Vol] 22.9 mmol/L Normal 21.0-32.0 [facility] Comment on above: Performed By: #### C VDTBH #### [facility] [address] [place] [address] Dr. Caitlin Martinez Potassium [Moles/Vol] 3.5 mmol/L Normal 3.5-5.1 [facility] Comment on above: Performed By: #### C VDTBH #### [facility] [address] [place] [address] Dr. Caitlin Martinez Sodium [Moles/Vol] 139 mmol/L Normal 136-145 [facility] Comment on above: Performed By: #### C VDTBH #### [facility] [address] [place] [address] Dr. Caitlin Martinez LIPASEon 01-16-2022 Lipase [Catalytic activity/Vol] 66.0 U/L Critically low 73.0-393.0 [facility] Comment on above: Performed By: #### C BC #### [facility] [address] [place] [address] Dr. Caitlin Martinez SGOTon 01-16-2022 AST [Catalytic activity/Vol] 12 U/L Critically low 15-37 [facility] Comment on above: Performed By: #### C VDTBH #### [facility] [address] [place] [address] Dr. Caitlin Martinez SGPTon 01-16-2022 ALT [Catalytic activity/Vol] 9 U/L Critically low 14-59 [facility] Comment on above: Performed By: #### C VDTBH #### [facility] [address] [place] [address] Dr. Caitlin Martinez CBC AUTO DIFFon 01-15-2022 BASO # 0.1 103/ul Normal 0.0-0.1 [facility] Comment on above: Performed By: #### C VDTBH #### [facility] [address] [place] [address] Dr. Caitlin Martinez Basophils/100 WBC (Bld) 0.4 % Normal 0.2-2.0 [facility] Comment on above: Performed By: #### C VDTBH #### [facility] [address] [place] [address] Dr. Caitlin Martinez EO # 0.2 103/ul Normal 0.0-0.7 [facility] Comment on above: Performed By: #### C VDTBH #### [facility] [address] [place] [address] Dr. Caitlin Martinez Eosinophils/100 WBC (Bld) 1.4 % Normal 0.9-7.0 [facility] Comment on above: Performed By: #### C VDTBH #### [facility] [address] [place] [address] Dr. Caitlin Martinez Erythrocyte distribution width (RBC) [Ratio] 14.1 % Normal 11.0-15.0 [facility] Comment on above: Performed By: #### C VDTBH #### [facility] [address] [place] [address] Dr. Caitlin Martinez Hematocrit (Bld) [Volume fraction] 28.4 % Critically low 36.0-48.0 [facility] Comment on above: Performed By: #### C VDTBH #### [facility] [address] [place] [address] Dr. Caitlin Martinez Hemoglobin (Bld) [Mass/Vol] 9.0 g/dL Critically low 12.0-16.0 [facility] Comment on above: Performed By: #### C VDTBH #### [facility] [address] [place] [address] Dr. Caitlin Martinez IG # 0.18 10e3/ul Critically high 0.00-0.03 [facility] Comment on above: Performed By: #### C VDTBH #### [facility] [address] [place] [address] Dr. Caitlin Martinez IG % 1.3 % Critically high 0.0-0.5 [facility] Comment on above: Performed By: #### C VDTBH #### [facility] [address] [place] [address] Dr. Caitlin Martinez LYMPH # 2.4 103/ul Normal 1.2-3.8 [facility] Comment on above: Performed By: #### C VDTBH #### [facility] [address] [place] [address] Dr. Caitlin Martinez Lymphocytes/100 WBC (Bld) 16.8 % Critically low 20.5-60.0 [facility] Comment on above: Performed By: #### C VDTBH #### [facility] [address] [place] [address] Dr. Caitlin Martinez MANUAL DIFF REQ NO Normal [facility] Comment on above: Performed By: #### C VDTBH #### [facility] [address] [place] [address] Dr. Caitlin Martinez MCH (RBC) [Entitic mass] 27.9 pg Normal 26.7-34.0 [facility] Comment on above: Performed By: #### C VDTBH #### [facility] [address] [place] [address] Dr. Caitlin Martinez MCHC (RBC) [Mass/Vol] 31.7 g/dL Normal 29.9-35.2 [facility] Comment on above: Performed By: #### C VDTBH #### [facility] [address] [place] [address] Dr. Caitlin Martinez MCV (RBC) [Entitic vol] 87.9 fL Normal 81.0-99.0 [facility] Comment on above: Performed By: #### C VDTBH #### [facility] [address] [place] [address] Dr. Caitlin Martinez MONO # 0.9 103/ul Critically high 0.3-0.8 [facility] Comment on above: Performed By: #### C VDTBH #### [facility] [address] [place] [address] Dr. Caitlin Martinez Monocytes/100 WBC (Bld) 6.7 % Normal 1.7-12.0 [facility] Comment on above: Performed By: #### C VDTBH #### [facility] [address] [place] [address] Dr. Caitlin Martinez NEUT # 10.3 103/ul Critically high 1.4-6.5 [facility] Comment on above: Performed By: #### C VDTBH #### [facility] [address] [address] [address] Caitlin Martinez Neutrophils/100 WBC (Bld) 73.4 % Normal 43.0-75.0 [facility] Comment on above: Performed By: #### C VDTBH #### [facility] [address] [address] [address] Caitlin Martinez Platelet mean volume (Bld) [Entitic vol] 9.0 fL Critically low 9.5-13.5 [facility] Comment on above: Performed By: #### C VDTBH #### [facility] [address] [address] [address] Caitlin Martinez PLT 318 103/ul Normal 150-450 [facility] Comment on above: Performed By: #### C VDTBH #### [facility] [address] [address] [address] Caitlin Martinez RBC 3.23 106/ul Critically low 4.20-5.40 [facility] Comment on above: Performed By: #### C VDTBH #### [facility] [address] [address] [address] Caitlin Martinez WBC 14.0 103/ul Critically high 4.0-11.0 [facility] Comment on above: Performed By: #### C VDTBH #### [facility] [address] [address] [address] ABD/PELVIS WO CONon [...] DAVID BLACKMON Date: 2022-01-15 16:31 Normal The [facility] CULTURE URINEon 01-15-2022 CULTURE URINE Culture Observations : LIGHT GROWTH OF MIXED GENITAL COSME. NO POTENTIAL PATHOGENS SEEN. Normal The [facility] Comment on above: Performed By: #### U RCX #### [facility] [address] [place] [address] Dr. Caitlin Martniez UA (CLEAN/CATCH) COMMUNITY EDUCATION COORDINATOR/MICRO I F IND.on 01-15-2022 Bilirubin Ql (U) Negative Normal NEGATIVE [facility] Comment on above: Performed By: #### C BC #### [facility] [address] [place] [address] Dr. Caitlin Martinez Clarity (U) CLEAR Normal CLEAR [facility] Comment on above: Performed By: #### C BC #### [facility] [address] [place] [address] Dr. Caitlin Martinez Color (U) LT. YELLOW Normal YELLOW [facility] Comment on above: Performed By: #### C BC #### [facility] [address] [place] [address] Dr. Caitlin Martinez Glucose Ql (U) Negative Normal NEGATIVE [facility] Comment on above: Performed By: #### C BC #### [facility] [address] [place] [address] Dr. Caitlin Martinez Hemoglobin Ql (U) Negative Normal NEGATIVE [facility] Comment on above: Performed By: #### C BC #### [facility] [address] [place] [address] Dr. Caitlin Martinez Ketones Ql (U) Negative Normal NEGATIVE [facility] Comment on above: Performed By: #### C BC #### [facility] [address] [place] [address] Dr. Caitlin Martinez LEUKOCYTES TRACE Abnormal NEGATIVE The [facility] Comment on above: Performed By: #### C BC #### [facility] [address] [place] [address] Dr. Caitlin Martinez Nitrite Ql (U) Negative Normal NEGATIVE [facility] Comment on above: Performed By: #### C BC #### [facility] [address] [place] [address] Dr. Caitlin Martinez pH (U) 7.0 [pH] Normal 5-9 [facility] Comment on above: Performed By: #### C BC #### [facility] [address] [place] [address] Dr. Caitlin Martinez SPEC GRAVITY 1.010 Normal 1.005-<=1.025 [facility] Comment on above: Performed By: #### C BC #### [facility] [address] [place] [address] Dr. Caitlin Martinez UA PROTEIN Negative Normal NEGATIVE/ TRACE [facility] Comment on above: Performed By: #### C BC #### [facility] [address] [place] [address] Dr. Caitlin Martinez UR MICRO IND INDICATED Normal [facility] Comment on above: Performed By: #### C BC #### [facility] [address] [place] [address] Dr. Caitlin Martinez Urobilinogen Qn (U) 0.2 {Barbara'U}/dL Normal 0.2 - 1. 0 The [facility] Comment on above: Performed By: #### C BC #### [facility] [address] [place] [address] Dr. Caitlin Martinez URINE MICROSCOPIC ONLYon BACTERIA MODERATE Abnormal NONE SEEN The [facility] Comment on above: Performed By: #### C BC #### [facility] [address] [place] [address] Dr. Caitlin Martinez Bacteria identified Cx Nom (U) INDICATED Normal [facility] Comment on above: Performed By: #### C BC #### [facility] [address] [place] [address] Dr. Caitlin Martinez CAST NONE SEEN Normal NONE SEEN The [facility] Comment on above: Performed By: #### C BC #### [facility] [address] [place] [address] Dr. Caitlin Martinez Crystals LM Nom (Urine sed) NONE SEEN Normal NONE SEEN The [facility] Comment on above: Performed By: #### C BC #### [facility] [address] [place] [address] Dr. Caitlin Martinez Epithelial cells LM Ql (Urine sed) MODERATE Abnormal NONE SEEN /RARE The [facility] Comment on above: Performed By: #### C BC #### [facility] [address] [place] [address] Dr. Caitlin Martinez MUCOUS NONE SEEN Normal NONE SEEN The [facility] Comment on above: Performed By: #### C BC #### [facility] [address] [place] [address] Dr. Caitlin Martinez RBC NONE SEEN Abnormal 0-2 [facility] Comment on above: Performed By: #### C BC #### [facility] [address] [place] [address] Dr. Caitlin Martinez WBC 2-5 Abnormal NONE SEEN The [facility] Comment on above: Performed By: #### C BC #### [facility] [address] [place] [address] Dr. Caitlin Martinez US APPENDIXon 01-15-2022 US APPENDIX EXAM: US APPENDIX HISTORY: pain , contractions COMPARISON: None. TECHNIQUE: Transabdominal ultrasound evaluation of right lower quadrant. FINDINGS: No identifiable appendix, abnormally dilated bowel, free fluid, or enlarged lymph nodes. IMPRESSION: 1. The appendix could not be identified within the right lower quadrant. 2. No secondary suspicious findings to suggest appendicitis. Electronically authenticated by: ADVID BLACKMON Date: 2022-01-15 14:14 Normal The [facility] US PREG GROWTHon 01-15-2022 US PREG GROWTH [...] DAVID BLACKMON Date: 2022-01-15 10:59 Normal The [facility] US PREG PLACENTAon 2 US PREG PLACENTA [...] DAVID BLACKMON Date: 2022-01-15 10:57 Normal The [facility] UA (CLEAN/CATCH) COMMUNITY EDUCATION COORDINATOR/MICRO I F IND.on 12-29-2021 Bilirubin Ql (U) Negative Normal NEGATIVE The [facility] Comment on above: Performed By: #### C BC #### [facility] [address] [address] [address] Caitlin Martinze Clarity (U) CLEAR Normal CLEAR The [facility] Comment on above: Performed By: #### C BC #### [facility] [address], [place] [address] Dr. Caitlin Martinez Color (U) LT. YELLOW Normal YELLOW The [facility] Comment on above: Performed By: #### C BC #### [facility] [address] [address] [address] Caitlin Martinez Glucose Ql (U) Negative Normal NEGATIVE [facility] Comment on above: Performed By: #### C BC #### [facility] [address] [address] [address] Caitlin Martinez Hemoglobin Ql (U) Negative Normal NEGATIVE [facility] Comment on above: Performed By: #### C BC #### [facility] [address] [place] [address] Dr. Caitlin Martinez Ketones Ql (U) Negative Normal NEGATIVE [facility] Comment on above: Performed By: #### C BC #### [facility] [address] [place] [address] Dr. Caitlin Martinez LEUKOCYTES Negative Normal NEGATIVE [facility] Comment on above: Performed By: #### C BC #### [facility] [address] [place] [address] Dr. Caitlin Martinez Nitrite Ql (U) Negative Normal NEGATIVE [facility] Comment on above: Performed By: #### C BC #### [facility] [address] [place] [address] Dr. Caitlin Martinez pH (U) 6.5 [pH] Normal 5-9 [facility] Comment on above: Performed By: #### C BC #### [facility] [address] [place] [address] Dr. Caitlin Martinez SPEC GRAVITY 1.020 Normal 1.005-<=1.025 [facility] Comment on above: Performed By: #### C BC #### [facility] [address] [place] [address] Dr. Caitlin Martinez UA PROTEIN Negative Normal NEGATIVE/ TRACE The [facility] Comment on above: Performed By: #### C BC #### [facility] [address] [place] [address] Dr. Caitlin Martinez UR MICRO IND NOT INDICATED Normal [facility] Comment on above: Performed By: #### C BC #### [facility] [address] [place] [address] Dr. Caitlin Martinez Urobilinogen Qn (U) 1.0 {Barbara'U}/dL Normal 0.2 - 1. 0 [facility] Comment on above: Performed By: #### C BC #### [facility] [address] [place] [address] Dr. Caitlin Martinez US PREG CERVICAL LENGTHon [...] KIRK OATES Date: 2021-12-29 15:53 Normal The [facility] UA (CLEAN/CATCH) COMMUNITY EDUCATION COORDINATOR/MICRO I F IND.on 12-18-2021 Bilirubin Ql (U) Negative Normal NEGATIVE The [facility] Comment on above: Performed By: #### C BC #### [facility] [address] [place] [address] Dr. Caitlin Martinez Clarity (U) CLEAR Normal CLEAR [facility] Comment on above: Performed By: #### C BC #### [facility] [address] [place] [address] Dr. Caitlin Martienz Color (U) YELLOW Normal YELLOW The [facility] Comment on above: Performed By: #### C BC #### [facility] [address] [place] [address] Dr. Caitlin Martinez Glucose Ql (U) Negative Normal NEGATIVE [facility] Comment on above: Performed By: #### C BC #### [facility] [address] [place] [address] Dr. Caitlin Martinez Hemoglobin Ql (U) Negative Normal NEGATIVE The [facility] Comment on above: Performed By: #### C BC #### [facility] [address] [place] [address] Dr. Caitlin Martinez Ketones Ql (U) TRACE Abnormal NEGATIVE [facility] Comment on above: Performed By: #### C BC #### [facility] [address] [place] [address] Dr. Caitlin Martinez LEUKOCYTES Negative Normal NEGATIVE [facility] Comment on above: Performed By: #### C BC #### [facility] [address] [place] [address] Dr. Caitlin Martinez Nitrite Ql (U) Negative Normal NEGATIVE [facility] Comment on above: Performed By: #### C BC #### [facility] [address] [place] [address] Dr. Caitlin Martinez pH (U) 6.0 [pH] Normal 5-9 [facility] Comment on above: Performed By: #### C BC #### [facility] [address] [place] [address] Dr. Caitlin Martinez SPEC GRAVITY 1.025 Normal 1.005-<=1.025 [facility] Comment on above: Performed By: #### C BC #### [facility] [address] [place] [address] Dr. Caitlin Martinez UA PROTEIN Negative Normal NEGATIVE/ TRACE The [facility] Comment on above: Performed By: #### C BC #### [facility] [address] [place] [address] Dr. Caitlin Martinez UR MICRO IND NOT INDICATED Normal [facility] Comment on above: Performed By: #### C BC #### [facility] [address] [place] [address] Dr. Caitlin Martinez Urobilinogen Qn (U) 4 {Barbara'U}/dL Abnormal 0.2 - 1.0 [facility] Comment on above: Performed By: #### C BC #### [facility] [address] [place] [address] Dr. Caitlin Martinez RHOGAMon 11-28-2021 RHOGAM Status Information Issued Quantity 1 Product ID Rh Immune Globulin Lot Number [id number] Issue Date/Time [id number] Normal [facility] Comment on above: Performed By: #### I HORACIO #### [facility] [address] [place] [address] Dr. Caitlin Martinez TYPE AND SCREENon 11-27-2021 TYPE AND SCREEN Negative Normal [facility] Comment on above: Performed By: #### T NS #### [facility] [address] [place] [address] Dr. Caitlin Martinez CULTURE URINEon 11-23-2021 CULTURE URINE Culture Observations : No growth Normal [facility] Comment on above: Performed By: #### I HORACIO #### [facility] [address] [place] [address] Dr. Caitlin Martinez UA (CLEAN/CATCH) COMMUNITY EDUCATION COORDINATOR/MICRO I F IND.on 11-23-2021 Bilirubin Ql (U) Negative Normal NEGATIVE [facility] Comment on above: Performed By: #### U RCX #### [facility] [address] [place] [address] Dr. Caitlin Martinez Clarity (U) CLEAR Normal CLEAR [facility] Comment on above: Performed By: #### U RCX #### [facility] [address] [place] [address] Dr. Caitlin Martinez Color (U) LT. YELLOW Normal YELLOW [facility] Comment on above: Performed By: #### U RCX #### [facility] [address] [place] [address] Dr. Caitlin Martinez Glucose Ql (U) Negative Normal NEGATIVE [facility] Comment on above: Performed By: #### U RCX #### [facility] [address] [place] [address] Dr. Caitlin Martinez Hemoglobin Ql (U) Negative Normal NEGATIVE [facility] Comment on above: Performed By: #### U RCX #### [facility] [address] [place] [address] Dr. Caitlin Martinez Ketones Ql (U) Negative Normal NEGATIVE [facility] Comment on above: Performed By: #### U RCX #### [facility] [address] [place] [address] Dr. Caitlin Martinez LEUKOCYTES SMALL Abnormal NEGATIVE [facility] Comment on above: Performed By: #### U RCX #### [facility] [address] [place] [address] Dr. Caitlin Martinez Nitrite Ql (U) Negative Normal NEGATIVE [facility] Comment on above: Performed By: #### U RCX #### [facility] [address] [address] [address] Caitlin Martinez pH (U) 6.5 [pH] Normal 5-9 The [facility] Comment on above: Performed By: #### U RCX #### [facility] [address] [place] [address] Dr. Caitlin Martinez SPEC GRAVITY 1.010 Normal 1.005-<=1.025 [facility] Comment on above: Performed By: #### U RCX #### [facility] [address] [place] [address] Dr. Caitlin Martinez UA PROTEIN Negative Normal NEGATIVE/ TRACE The [facility] Comment on above: Performed By: #### U RCX #### [facility] [address] [place] [address] Dr. Caitlin Martinez UR MICRO IND INDICATED Normal The [facility] Comment on above: Performed By: #### U RCX #### [facility] [address] [place] [address] Dr. Caitlin Martinez Urobilinogen Qn (U) 0.2 {Barbara'U}/dL Normal 0.2 - 1. 0 [facility] Comment on above: Performed By: #### U RCX #### [facility] [address] [place] [address] Dr. Caitlin Martinez URINE MICROSCOPIC ONLYon BACTERIA TRACE Abnormal NONE SEEN The [facility] Comment on above: Performed By: #### U RCX #### [facility] [address] [place] [address] Dr. Caitlin Martinez Bacteria identified Cx Nom (U) INDICATED Normal [facility] Comment on above: Performed By: #### U RCX #### [facility] [address] [place] [address] Dr. Caitlin Martinez CAST SEEN Abnormal NONE SEEN The [facility] Comment on above: Performed By: #### U RCX #### [facility] [address] [place] [address] Dr. Caitlin Martinez Crystals LM Nom (Urine sed) SEEN Abnormal NONE SEEN The [facility] Comment on above: Performed By: #### U RCX #### [facility] [address] [place] [address] Dr. Caitlin Martinez Epithelial cells LM Ql (Urine sed) RARE Normal NONE SEEN /RARE The [facility] Comment on above: Performed By: #### U RCX #### [facility] [address] [place] [address] Dr. Caitlin Martinez MUCOUS TRACE Abnormal NONE SEEN The [facility] Comment on above: Performed By: #### U RCX #### [facility] [address] [place] [address] Dr. Caitlin Martinez RBC 0-2 Normal 0-2 [facility] Comment on above: Performed By: #### U RCX #### [facility] [address] [place] [address] Dr. Caitlin Martinez WBC 2-5 Abnormal NONE SEEN The [facility] Comment on above: Performed By: #### U RCX #### [facility] [address] [place] [address] Dr. Caitlin Martinez GLUCOSE - 1HRon 11-06-2021 Glucose [Mass/Vol] 131 mg/dL Critically high 74-106 T [facility] Comment on above: Performed By: #### I HORACIO #### [facility] [address] [place] [address] Dr. Caitlin Martinez HEMOGRAM AND PLATELon 2021 Hematocrit (Bld) [Volume fraction] 34.2 % Critically low 36.0-48.0 [facility] Comment on above: Performed By: #### C BC #### [facility] [address] [place] [address] Dr. Caitlin Martinez Hemoglobin (Bld) [Mass/Vol] 11.3 g/dL Critically low 12.0-16.0 [facility] Comment on above: Performed By: #### C BC #### [facility] [address] [place] [address] Dr. Caitlin Martinez MCH (RBC) [Entitic mass] 31.7 pg Normal 26.7-34.0 [facility] Comment on above: Performed By: #### C BC #### [facility] [address] [place] [address] Dr. Caitlin Martinez MCHC (RBC) [Mass/Vol] 33.0 g/dL Normal 29.9-35.2 [facility] Comment on above: Performed By: #### C BC #### [facility] [address] [place] [address] Dr. Caitlin Martinez MCV (RBC) [Entitic vol] 96.1 fL Normal 81.0-99.0 [facility] Comment on above: Performed By: #### C BC #### [facility] [address] [place] [address] Dr. Caitlin Martinez PLT 372 103/ul Normal 150-450 [facility] Comment on above: Performed By: #### C BC #### [facility] [address] [place] [address] Dr. Caitlin Martinez RBC 3.56 106/ul Critically low 4.20-5.40 [facility] Comment on above: Performed By: #### C BC #### [facility] [address] [place] [address] Dr. Caitlin Martinez WBC 10.1 103/ul Normal 4.0-11.0 [facility] Comment on above: Performed By: #### C BC #### [facility] [address] [place] [address] Dr. Caitlin Martinez CHLAMYDIA/GONOCOCCUS JONATAN ( AB/URINE/PAPon 10-31-2021 Chlamydia trachomatis, JONATAN Negative Normal Negative The [facility] Comment on above: Performed By: #### C BC #### [facility] [address] [place] [address] Dr. Caitlin Martinez Neisseria gonorrhoeae, JONATAN Negative Normal Negative The [facility] Comment on above: Performed By: #### C BC #### [facility] [address] [place] [address] Dr. Caitlin Martinez VAGINITIS/VAGINOSIS DNA PROB Paramjit 10-29-2021 Selena species Negative Normal Negative [facility] Comment on above: Performed By: #### U RCX #### [facility] [address] [place] [address] Dr. Caitlin Martinez Gardnerella vaginalis Negative Normal Negative The [facility] Comment on above: Performed By: #### U RCX #### [facility] [address] [place] [address] Dr. Caitlin Martinez Trichomonas vaginalis Negative Normal Negative The [facility] Comment on above: Performed By: #### U RCX #### [facility] [address] [place] [address] Dr. Caitlin Martinez US PREG INCOMPLETE ANATOMYon [...] DAVID BLACKMON Date: 2021-10-26 12:05 Normal The [facility] CBC W MANUAL DIFFon 10-25-19 22 ATYPICAL LYMPH # Normal [facility] Comment on above: Performed By: #### U RCX #### [facility] [address] [place] [address] Dr. Caitlin Martinez ATYPICAL LYMPH % Normal [facility] Comment on above: Performed By: #### U RCX #### [facility] [address] [place] [address] Dr. Caitlin Martinez BAND # 0.1 103/ul Normal 0.0-0.3 The [facility] Comment on above: Performed By: #### U RCX #### [facility] [address] [place] [address] Dr. Caitlin Martinez BAND % 1 % Normal 0-5 The [facility] Comment on above: Performed By: #### U RCX #### [facility] [address] [place] [address] Dr. Caitlin Martinez BASOM # 0.00 103/ul Normal 0.00-0.10 The [facility] Comment on above: Performed By: #### U RCX #### [facility] [address] [address] [address] Caitlin Martinez BASOM % 0.0 % Critically low 0.2-2.0 [facility] Comment on above: Performed By: #### U RCX #### [facility] [address] [address] [address] Caitlin Martinez BLAST # Normal [facility] Comment on above: Performed By: #### U RCX #### [facility] [address] [address] [address] Caitlin Martinez BLAST % Normal [facility] Comment on above: Performed By: #### U RCX #### [facility] [address] [place] [address] Dr. Caitlin Martinez CORRECTED WBC Normal 4.0-11.0 [facility] Comment on above: Performed By: #### U RCX #### [facility] [address] [place] [address] Dr. Caitlin Martinez EOS # 0.12 103/ul Normal 0.00-0.70 [facility] Comment on above: Performed By: #### U RCX #### [facility] [address] [place] [address] Dr. Caitlin Martinez EOS% 1.0 % Normal 0.9-7.0 [facility] Comment on above: Performed By: #### U RCX #### [facility] [address] [place] [address] Dr. Caitlin Martinez HCT 31.5 % Critically low 36.0-48.0 [facility] Comment on above: Performed By: #### U RCX #### [facility] [address] [place] [address] Dr. Caitlin Martinez HGB 10.5 g/dl Critically low 12.0-16.0 [facility] Comment on above: Performed By: #### U RCX #### [facility] [address] [place] [address] Dr. Caitlin Martinez LYMPHM # 0.37 103/ul Critically low 1.20-3.80 [facility] Comment on above: Performed By: #### U RCX #### [facility] [address] [place] [address] Dr. Caitlin Martinez LYMPHM% 3.0 % Critically low 20.5-60.0 [facility] Comment on above: Performed By: #### U RCX #### [facility] [address] [place] [address] Dr. Caitlin Martinez MCH 31.8 pg Normal 26.7-34.0 [facility] Comment on above: Performed By: #### U RCX #### [facility] [address] [place] [address] Dr. Caitlin Martinez MCHC 33.3 g/dl Normal 29.9-35.2 [facility] Comment on above: Performed By: #### U RCX #### [facility] [address] [place] [address] Dr. Caitlin Martinez MCV 95.5 fL Normal 81.0-99.0 [facility] Comment on above: Performed By: #### U RCX #### [facility] [address] [place] [address] Dr. Caitlin Martinez METAMYELOCYTE # Normal [facility] Comment on above: Performed By: #### U RCX #### [facility] [address] [place] [address] Dr. Caitlin Martinez METAMYELOCYTE % Normal [facility] Comment on above: Performed By: #### U RCX #### [facility] [address] [place] [address] Dr. Caitlin Martinez MONOM# 0.73 103/ul Normal 0.30-0.80 [facility] Comment on above: Performed By: #### U RCX #### [facility] [address] [place] [address] Dr. Caitlin Martinez MONOM% 6.0 % Normal 1.7-12.0 [facility] Comment on above: Performed By: #### U RCX #### [facility] [address] [place], [place] [id number] Dr. Caitlin Martinez MPV 9.5 fL Normal 9.5-13.5 [facility] Comment on above: Performed By: #### U RCX #### [facility] [address] [place] [address] Dr. Ciatlin Martinez MYELOCYTE # Normal [facility] Comment on above: Performed By: #### U RCX #### [facility] [address] [place] [address] Dr. Caitlin Martinez MYELOCYTE % Normal [facility] Comment on above: Performed By: #### U RCX #### [facility] [address] [place] [address] Dr. Caitlin Martinez NRBC Normal [facility] Comment on above: Performed By: #### U RCX #### [facility] [address] [place] [address] Dr. Caitlin Martinez PLT 275 103/ul Normal 150-450 [facility] Comment on above: Performed By: #### U RCX #### [facility] [address] [place] [address] Dr. Caitlin Martinez RBC 3.30 106/ul Critically low 4.20-5.40 [facility] Comment on above: Performed By: #### U RCX #### [facility] [address] [place] [address] Dr. Caitlin Martinez RDW 13.6 % Normal 11.0-15.0 [facility] Comment on above: Performed By: #### U RCX #### [facility] [address] [place] [address] Dr. Caitlin Martinez SEG # 10.86 103/ul Critically high 1.40-6.50 [facility] Comment on above: Performed By: #### U RCX #### [facility] [address] [place] [address] Dr. Caitlin Martinez SEG % 89.0 % Critically high 43.0-75.0 [facility] Comment on above: Performed By: #### U RCX #### [facility] [address] [place] [address] Dr. Caitlin Martinez WBC 12.2 103/ul Critically high 4.0-11.0 [facility] Comment on above: Performed By: #### U RCX #### [facility] [address] [place] [address] Dr. Caitlin Martinez ER URINE PROFILEon 2 Bilirubin Ql (U) Negative Normal NEGATIVE [facility] Comment on above: Performed By: #### C VDTBH #### [facility] [address] [address] [address] Caitlin Martinez Clarity (U) SL CLOUDY Abnormal CLEAR The [facility] Comment on above: Performed By: #### C VDTBH #### [facility] [address] [place] [address] Dr. Caitlin Martinez Color (U) YELLOW Normal YELLOW [facility] Comment on above: Performed By: #### C VDTBH #### [facility] [address] [place] [address] Dr. Caitlin PRICE A micrscopic examination will be performed if indicated. Normal The [facility] Comment on above: Performed By: #### C VDTBH #### [facility] [address] [place] [address] Dr. Caitlin Martinez Glucose Ql (U) Negative Normal NEGATIVE [facility] Comment on above: Performed By: #### C VDTBH #### [facility] [address] [place] [address] Dr. Caitlin Martinez Hemoglobin Ql (U) Negative Normal NEGATIVE [facility] Comment on above: Performed By: #### C VDTBH #### [facility] [address] [place] [address] Dr. Caitlin Martinez Ketones Ql (U) >=80 Abnormal NEGATIVE [facility] Comment on above: Performed By: #### C VDTBH #### [facility] [address] [place] [address] Dr. Caitlin Martinez LEUKOCYTES Negative Normal NEGATIVE [facility] Comment on above: Performed By: #### C VDTBH #### [facility] [address] [place] [address] Dr. Caitlin Martinez Nitrite Ql (U) Negative Normal NEGATIVE [facility] Comment on above: Performed By: #### C VDTBH #### [facility] [address] [place] [address] Dr. Caitlin Martinez pH (U) 6.0 [pH] Normal 5-9 [facility] Comment on above: Performed By: #### C VDTBH #### [facility] [address] [place] [address] Dr. Caitlin Martinez SPEC GRAVITY 1.020 Normal 1.005-<=1.025 [facility] Comment on above: Performed By: #### C VDTBH #### [facility] [address] [place] [address] Dr. Caitlin Martinez UA PROTEIN Negative Normal NEGATIVE/ TRACE The [facility] Comment on above: Performed By: #### C VDTBH #### [facility] [address] [place] [address] Dr. Caitlin Martinez UR MICRO IND NOT INDICATED Normal [facility] Comment on above: Performed By: #### C VDTBH #### [facility] [address] [place] [address] Dr. Caitlin Martinez Urobilinogen Qn (U) 1.0 {Barbara'U}/dL Normal 0.2 - 1. 0 [facility] Comment on above: Performed By: #### C VDTBH #### [facility] [address] [place] [address] Dr. Caitlin Martinez INFLUENZA A AND B AGon 10-24 INFLUBNEG SEE BELOW Normal [facility] Comment on above: Result Comment: Nega tive for Flu B protein antigen. Infection due to Flu B cannot be ruled out. Flu B antigen in the sample may be below the detection limit of the test. Performed By: #### C VDTBH #### [facility] [address] [place] [address] Dr. Caitlin Martinez INFLUENZA A AG Positive Abnormal NEGATIVE SEE COMMENT [facility] Comment on above: Performed By: #### C VDTBH #### [facility] [address] [address] [address] Caitlin Martinez INFLUENZA B AG Negative Normal NEGATIVE SEE COMMENT The [facility] Comment on above: Performed By: #### C VDTBH #### [facility] [address] [place] [address] Dr. Caitlin Martinez INFLUPOSH SEE BELOW Normal [facility] [facility] Comment on above: Result Comment: NOTE : Live attenuated influenzae vaccine viruses can cause a positive result for a rapid influenza diagnostic test if administered up to 7 days prior to rapid testing. Performed By: #### C VDTBH #### [facility] [address] [place] [address] Dr. Caitlin Martinez INTERNAL CONTROLS Within Normal Limits Normal Wi thin Normal Limits [facility] Comment on above: Performed By: #### C VDTBH #### [facility] [address] [place] [address] Dr. Caitlin Martinez PROF CHEM 8 (BAS METB)on Anion gap [Moles/Vol] 14.4 mmol/L Normal [facility] Comment on above: Performed By: #### D IRCMB, ABID #### [facility] [address] [place] [address] Dr. Caitlin Martinez Calcium [Mass/Vol] 8.4 mg/dL Critically low 8.5-10.1 [facility] Comment on above: Performed By: #### D IRCMB, ABID #### [facility] [address] [place] [address] Dr. Caitlin Martinez Chloride [Moles/Vol] 101 mmol/L Normal 98-107 [facility] Comment on above: Performed By: #### D IRCMB, ABID #### [facility] [address] [place] [address] Dr. Caitlin Martinez CO2 [Moles/Vol] 19.7 mmol/L Critically low 21.0-32.0 [facility] Comment on above: Performed By: #### D IRCMB, ABID #### [facility] [address] [place] [address] Dr. Caitlin Martinez Creatinine [Mass/Vol] 0.55 mg/dL Normal 0.55-1.02 [facility] Comment on above: Performed By: #### D IRCMB, ABID #### [facility] [address] [place] [address] Dr. Caitlin Martinez EGFR-AF JAPANESE >60 Normal >=60 [facility] Comment on above: Performed By: #### D IRCMB, ABID #### [facility] [address] [place] [address] Dr. Caitlin Martinez EGFR-NON AF JAPANESE >60 Normal >=60 [facility] Comment on above: Performed By: #### D IRCMB, ABID #### [facility] [address] [place] [address] Dr. Caitlin Martinez Glucose [Mass/Vol] 91 mg/dL Normal 74-106 [facility] Comment on above: Performed By: #### D IRCMB, ABID #### [facility] [address] [place] [address] Dr. Caitlin Martinez Potassium [Moles/Vol] 3.1 mmol/L Critically low 3.5-5.1 [facility] Comment on above: Performed By: #### D IRCMB, ABID #### [facility] [address] [place] [address] Dr. Caitlin Martinez Sodium [Moles/Vol] 132 mmol/L Critically low 136-145 [facility] Comment on above: Performed By: #### D IRCMB, ABID #### [facility] [address] [place] [address] Dr. Caitlin Martinez Urea nitrogen [Mass/Vol] 7.0 mg/dL Normal 7.0-18.0 [facility] Comment on above: Performed By: #### D IRCMB, ABID #### [facility] [address] [place] [address] Dr. Caitlin Martinez Urea nitrogen/Creatinine [Mass ratio] 12.7 mg/mg Normal [facility] Comment on above: Performed By: #### D IRCMB, ABID #### [facility] [address] [place] [address] Dr. Caitlin Martinez US PREG ANATOMY SINGLEon [...] by: DAVID BLACKMON Date: 2021-09-28 09:17 Normal [facility] CHEMISTRYOrdered By: SYSTEM SYSTEM on 06-21-2021 [place] [address] m[IU]/mL High 1 - 3 mIU/mL [facility] Remisol XR LUMBAR SPINE [...] gas pattern is nonobstructive. There is a bjdidrib-ag-apbar amount of stool burden. IMPRESSION: No malalignment. No acute compression deformity. Gtmliyie-pm-eeysp amount of stool burden. [employer] Workstation ID: [id number] Dictated by: LUBA GARCÍA on [facility] Mar 05, 2020 4:09:51 PM EDT Transcribed by: KELVIN GUADALUPE on [facility] Mar 05, 2020 4:17:18 PM EDT Finalized by: LUBA GARCÍA on [facility] Mar 05, 2020 7:52:11 PM EDT [facility] Comment on above: Order Comment: Injur y/Trauma or Illness?:Illness/Other How long have you had these symptoms (acute/chronic)?:Chronic Reason for exam?:low back pain History of cancer?:n Surgeries, chemotherapy, or radiation?:n Type of Exam?:Initial Additional signs and symptoms?:fibromyalgia XR Lumbar Spine 2-3 Views (S tandard)on 03-05-2020 No malalignment. No acute compression deformity. Stinrpif-ix-yvuow amount of stool burden. [employer] Workstation ID: [id number] [facility] EXAMINATION: XR LUMBAR SPINE 2-3 [...] gas pattern is nonobstructive. There is a bqhrhtof-gv-dmkkr amount of stool burden. [facility] Interface, Rad In [place] Speechq - 03/05/2020 7:55 PM EDT EXAMINATION: [...] gas pattern is nonobstructive. There is a wpinytal-jl-gnkqu amount of stool burden. IMPRESSION: No malalignment. No acute compression deformity. Cdcjgfkw-tj-xawnr amount of stool burden. [employer] Workstation ID: [id number] [facility] CNOVon 10-28-2018 CNOV Office Visit (LOUN ) SANDY GODINEZ ([id number]) 1995 F Date Time Provider Department 10/28/18 [...] Farrah Garcia MD [address] [place] [address] Consult requested for an opinion regarding the [...] TIME: 12:44 PM Referring Provider: FARRAH GARCIA [[id number]] Allergies As of Date: 10/28/2018 (No Known [...] by WARREN RODRIGUEZ MD on 10/29/18 Normal [facility] PROGRESSon 10-28-2018 Protein mass conc HNO ID: [id number] Author: Warren Rodriguez Service: ? Author Type: Physician Type: Progress Notes Filed: 10/29/2018 3:03 PM Note Text: VASCULAR SURGERY INITIAL CONSULT SERVICE DATE: 10/28/2018 SERVICE TIME: 12:44 PM PRIMARY CARE PHYSICIAN: Farrah Garcia MD REFERRING PROVIDER: Farrah Garcia MD [address] [place] [address] Consult requested for an opinion regarding the [...] October 28, 2018 TIME: 12:44 PM Normal [facility] Vital Signs Date Time Vital Sign Value Performing Clinician Chiquis zaragoza 07-19-2023 09:31-0500 Body mass index (BMI) [Ratio] 26.79 kg/m2 [facility] 07-19-2023 09:31-0500 Body weight 73.03 kg [facility] 07-19-2023 09:31-0500 Diastolic blood pressure 72 mm[Hg] [facility] 07-19-2023 09:31-0500 Systolic blood pressure 118 mm[Hg] [facility] Nurse [facility] Encounters Encounter Date Encounter Type Care Provider Facility Start: 12-05-2023 End: 12-05-2023 ambulatory JOSE MIGUEL JUSTEN Not Available Start: 11-25-2023 End: 11-25-2023 ambulatory JOSE MIGUEL JUSTEN Not Available Start: 11-12-2023 End: 11-12-2023 ambulatory JOSE MIGUEL JUSTEN Not Available Start: 11-07-2023 End: 11-08-2023 ambulatory JOSE MIGUEL Laura CAMPUZANO [facility] Start: 10-15-2023 End: 10-15-2023 ambulatory [...] External Department Unsolicited Start: 07-19-2023 End: 07-19-2023 Office outpatient visit 5 minutes [facility] Comment on above: GA: 9w0d Start: 07-19-2023 End: 07-19-2023 ambulatory JOSE MIGUEL JUSTEN Not Available Start: 07-08-2023 ambulatory Royer Layne acility:[facility] Start: 07-02-2023 End: 07-02-2023 ambulatory JOSE MIGUEL LORAO Not Available Start: 07-30-2022 End: 07-31-2022 ambulatory [...] Miguel CAMPUZANO [facility] Start: 03-05-2020 End: 03-06-2020 Patient encounter procedure [facility] Start: 03-05-2020 End: 03-05-2020 Subsequent hospital visit by physician [facility] Work Phone: [facility] Comment on above: Chronic low back [...] encounter procedure 08/19/2023 11:10 AM EST Routine [facility] [address] [place] [id number] Jose Miguel Campuzano, DO [address] [place] [address] [facility] Start: 07-19-2023 End: 07-19-2024 ABO/Rh ABO/Rh Lab Routine Missed menses Expected: 07/19/2023 (Approximate), Expires: 07/19/2024 [facility] Comment on above: Expected: 07/19/2023 (Approximate), Expires: 07/19/2024 Start: 07-19-2023 End: 07-19-2024 Blood type and Indirect antibody screen panel - Blood Type and screen Lab Routine Missed menses Expected: 07/19/2023 (Approximate), Expires: 07/19/2024 [facility] Work Phone: Comment on above: Expected: 07/19/2023 (Approximate), Expires: 07/19/2024 Start: 07-19-2023 End: 07-19-2024 US Pelvis transvaginal US OB transvaginal Imaging Routine Missed menses Expected: 07/19/2023 (Approximate), Expires: 07/19/2024 [facility] Comment on above: Expected: 07/19/2023 (Approximate), Expires: 07/19/2024 Start: 02-16-2020 Influenza vaccinatio n given Sequential Influenza Vaccine (#1) [facility] Start: 2014 Hepatitis C antibody , confirmatory test Hepatitis C Screening [facility] Start: 08-31-2011 HIV screening HIV Screening [facility] Start: 08-31-2007 Vaccination for [place] papillomavirus HPV Vaccines (1 - 2-dose series) [facility] Start: 08-31-1999 History and physical examination, annual for health maintenance Wellness Visit [facility] Start: 1996 Screening for Chlamy tristan trachomatis Chlamydia Screening [facility] Start: 1996 Screening for malign ant neoplasm of cervix Pap Smear [facility] Start: 1996 Tetanus vaccination Tetanus: Every 1 0yrs [facility] Bacteria identified in Urine by Culture Urine culture Microbiology Routine Missed menses Ordered: 07/19/2023 [facility] Comment on above: Ordered: 07/19/2023 CBC W Auto Different ial panel - Blood CBC and differential Lab Routine Missed menses Ordered: 07/19/2023 [facility] Comment on above: Ordered: 07/19/2023 Hemoglobin A1c measurement Hemoglobin A1c Lab Routine Missed menses Ordered: 07/19/2023 [facility] Comment on above: Ordered: 07/19/2023 Hepatitis B virus knight rface Ag [Presence] in Serum or Plasma by Immunoassay Hepatitis B surface antigen Lab Routine Missed menses Ordered: 07/19/2023 [facility] Comment on above: Ordered: 07/19/2023 Hepatitis C virus Ab [Presence] in Serum or Plasma by Immunoassay Hepatitis C antibody Lab Routine Missed menses Ordered: 07/19/2023 [facility] Comment on above: Ordered: 07/19/2023 HIV-1/HIV-2 antigen/antibody combination immunoassay HIV-1 and HIV-2 antibodies Lab Routine Missed menses Ordered: 07/19/2023 [facility] Comment on above: Ordered: 07/19/2023 Reagin Ab [Presence] in Serum by RPR RPR Lab Routine Missed menses Ordered: 07/19/2023 [facility] Comment on above: Ordered: 07/19/2023 Rubella antibody, IgG Rubella an tibody, IgG Lab Routine Missed menses Ordered: 07/19/2023 [facility] Comment on above: Ordered: 07/19/2023 Payers Date Payer Category Payer Self-pay 2022 Medicaid [employer] [place] [id number] 2022-Present [address] [place] [address] [id number] 1995 Unknown [id number] 2.16.840.1.712192.3.579.2.903 1995 Unknown [id number] 2.16.840.1.560260.3.579.2.593 1996 Unknown [id number] 2.16.840.1.990877.3.579.2.593 1996 Unknown [id number] 2.16.840.1.945188.3.579.2.593 1996 Unknown [id number] 2.16.840.1.145621.3.579.2.593 1996 Unknown [id number] 2.16.840.1.994207.3.579.2.593 1996 Unknown [id number] 2.16.840.1.825196.3.579.2.593 1996 Unknown [id number] 2.16.840.1.173465.3.579.2.593 1996 Unknown [id number] 2.16.840.1.848936.3.579.2.593 1996 Unknown [id number] 2.16.840.1.796682.3.579.2.593 1996 Unknown [id number] 2.16.840.1.217847.3.579.2.593 1996 Unknown [id number] 2.16.840.1.916614.3.579.2.593 1996 Unknown [id number] 2.16.840.1.404906.3.579.2.593 1996 Unknown [id number] 2.16.840.1.942890.3.579.2.593 1996 Unknown [id number] 2.16.840.1.382036.3.579.2.593 1996 Unknown [id number] 2.16.840.1.680868.3.579.2.593 1996 Unknown [id number] 2.16.840.1.680505.3.579.2.593 1996 Unknown [id number] 2.16.840.1.353818.3.579.2.593 1996 Unknown [id number] 2.16.840.1.953640.3.579.2.593 1996 Unknown [id number] 2.16.840.1.998081.3.579.2.593 1996 Unknown [id number] 2.16.840.1.410255.3.579.2.593 1996 Unknown [id number] 2.16.840.1.768553.3.579.2.593 1996 Unknown [id number] 2.16.840.1.613909.3.579.2.1286 1996 Unknown [id number] 2.16.840.1.621914.3.579.2.1286 1996 Unknown [id number] 2.16.840.1.370981.3.579.2.1259 1996 Unknown [id number] 2.16.840.1.034070.3.579.2.1259 1996 Unknown [id number] 2.16.840.1.858918.3.579.2.1259 1996 Unknown [id number] 2.16.840.1.257872.3.579.2.1259 1996 Unknown [id number] 2.16.840.1.551069.3.579.2.1259 1996 Unknown [id number] 2.16.840.1.695953.3.579.2.1259 1996 Unknown [id number] 2.16.840.1.452856.3.579.2.1259 1996 Unknown [id number] 2.16.840.1.788122.3.579.2.1259 1959 Unknown [id number] 1959 Unknown [id number] Unknown COMMERCIAL [employer]ME RCIAL MISCELLANEOUS [id number] Effective for all dates [id number] 1.2.840.027900.1.13.385.2.7.3. 803306.315 Unknown [id number] Unknown [id number] 2.16.840.1.202428.3.579.2.531 Social History Date Type Detail Facility Tobacco smoking stat [facility] Unknown if ever smoked [facility] Sex Assigned At Not on file [facility] Start: 12-07-2022 Sex Assigned At Female [facility] Start: 12-07-2022 Tobacco smoking status NHIS Never smoked tobacco [facility] Start: 07-19-2023 Alcohol intake Current drinker of alcohol (finding) [facility] Start: 12-07-2022 History of Social function [facility] Start: 12-07-2022 Alcohol Comment 1-2 drinks less than monthly in the past year [facility] Start: 05-31-2023 [facility] Start: 1995 Sex Assigned At Female [facility] Start: 11-29-2022 Gender identity Identifies as female gender (finding) [facility] Start: 11-29-2022 Sexual orientation Heterosexual (finding) [facility] History of Present illness Narrative 07-19-2023 [...] Procedure Laterality Date DILATION AND CURETTAGE 2018 CA TONSILLECTOMY & ADENOIDECTOMY AGE 13/> 2015 WISDOM [...] sent for nausea to pharmacy. Pt desires [facility] and understands to have it done at 10 weeks along w/her labs. Follow Up: Patient is to have labs drawn at directed and return to office for initial OB appointment with provider. Patient may call office as needed with any concerns or questions. Nurse Visit Completed by: Cori Daniel MA documented in this encounter [facility] Clinical Note 01-16-2022 Note Date & [...] by: Cecelia FOOTE Date: 2022-01-16 21:33 [facility] Note 01-16-2022 Note Date & Type [...] authenticated by: Cecelia FOOTE Date: 2022-01-16 21:33 [facility] Clinical Note 01-15-2022 Note Date & [...] by: IGOR DIAZ Date: 2022-01-15 10:10 [facility] Evaluation + Plan note Note Date & Type Note Facility Evaluation + Plan note No data available for this section [facility] Evaluation note Note Date & Type Note Facility Evaluation note Diagnosis Missed menses Nausea Nausea alone documented in this encounter [facility] Hospital Discharge instructions Note Date & Type Note Facility Hospital Discharge instructions No data available for this section [facility] Summary Purpose Family History No Family History Records FoundNo Family History Records FoundNo Family History Records FoundNo Family History Records FoundNo Family History Records FoundNo Family History Records FoundNo Family History Records Found Advance Directives No Advanced Directives Records FoundDocuments on File Type Date Recorded 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 Advance Directives and Livin g Will 03/05/2020 2:18 PM Assessments Diagnosis Chronic low back pain, unspecified back pain laterality, unspecified whether sciatica present Additional Source Comments INFORMATION SOURCE (unrecogn ized section and content) DATE CREATED AUTHOR 11/08/2018 [facility] DATE CREATED AUTHOR AUTHOR'S ORGANIZ ATION 03/21/2020 [facility] DATE CREATED AUTHOR AUTHOR'S ORGANIZ ATION 08/04/2022 [facility] DATE CREATED AUTHOR AUTHOR'S ORGANIZ ATION 09/06/2022 [facility] DATE CREATED AUTHOR AUTHOR'S ORGANIZ ATION 09/17/2023 [facility] DATE CREATED AUTHOR AUTHOR'S ORGANIZ ATION 11/09/2023 [facility] DATE CREATED AUTHOR AUTHOR'S ORGANIZ ATION 12/06/2023 [facility] EPIC Reason for Visit (unrecogniz [...] BE BASED ON THE PRIMARY CLINICAL RECORDS. [employer] provides no warranty or guarantee of the accuracy or completeness of information in this document.
== END 2023-12-07 11:53 | disposition home or self-care (01) ==
PROVIDERS: Emergency Provider Emergency Medicine Emergency Medical Services; PCP Nurse Practitioner Family
DX: O9A.213 Injury, poisoning and certain other consequences of external causes complicating pregnancy, third trimester (principal); S93.402A Sprain of unspecified ligament of left ankle, initial encounter; S96.912A Strain of unspecified muscle and tendon at ankle and foot level, left foot, initial encounter; Z3A.29 29 weeks gestation of pregnancy; W10.1XXA Fall (on)(from) sidewalk curb, initial encounter
CPT/HCPCS: 73610; 99283

== ENCOUNTER 2023-12-17 22:29 | Observation (INO) | payer OTHER, SELFPAY ==
--- OUTSIDE RECORDS SUMMARY | 2023-12-17 22:36 | XMS_ITS | CCD ---
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; 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: [OTH LONGTERM CURRENT DRUG THERAPY] Onset: 02-05-2022 Episodic Other [...] WITH AUTO DIFFon BASOPHILS ABSOLUTE AUTO 0.1 [facility] Basophils/100 WBC (Bld) 0.7 % 0.2 - 2.0 % [facility] Eosinophils/100 WBC (Bld) 2.6 % 0.9 - 7.0 % [facility] Erythrocyte distribution width (RBC) [Ratio] 13.4 % 11.0 - 15.0 % [facility] Hematocrit (Bld) [Volume fraction] 39.0 % 36.0 - 48.0 % [facility] Hemoglobin (Bld) [Mass/Vol] 12.8 g/dL 12.0 - 16.0 g/dL [facility] IMMATURE GRANULOCYTES ABS AUTO 0.01 [facility] Immature granulocytes/100 WBC (Bld) 0.1 % 0.0 - 0.5 % [facility] LYMPHOCYTES ABSOLUTE AUTO 2.2 [facility] Lymphocytes/100 WBC (Bld) 26.1 % 20.5 - 60.0 % [facility] MCH (RBC) [Entitic mass] 28.6 pg 26.7 - 34.0 pg [facility] MCHC (RBC) [Mass/Vol] 32.8 g/dL 29.9 - 35.2 g/dL [facility] MCV (RBC) [Entitic vol] 87.2 fL 81.0 - 99.0 fL [facility] MONOCYTES ABSOLUTE AUTO 0.5 [facility] Monocytes/100 WBC (Bld) 5.7 % 1.7 - 12.0 % [facility] NEUTROPHILS ABSOLUTE AUTO 5.5 [facility] Neutrophils/100 WBC (Bld) 64.8 % 43.0 - 75.0 % [facility] Platelet mean volume (Bld) [Entitic vol] 10.1 fL 9.5 - 13.5 fL [facility] TBH EO # 0.2 [facility] PLT 340 [facility] RBC 4.47 [facility] WBC 8.4 [facility] HCG ( test) Ql (U)o n 07-19-2023 Interpretation and review of laboratory results Abnormal [facility] Preg Test, Ur Positive [facility] Urinalysis macro (dipstick) panel (U)on 07-19-2023 Bilirubin, UA Negative Negative - 4(70) +++ mg/dL [facility] Blood, UA Positive Negative - 50 Anselmo/mcL [facility] Comment on above: moderate Clarity, UA Clear [facility] Color, UA [place] [facility] Glucose, UA Negative Negative - 2000(110) ++++ mg/dL [facility] Interpretation and review of laboratory results Abnormal [facility] Ketones, UA Positive Negative - 160(16) ++++ mg/dL [facility] Comment on above: trace Leukocytes, UA Positive Negative - 500+++ Monik/mcL [facility] Comment on above: small Nitrite, UA Negative Negative - Positive [facility] pH, UA 6.0 5 - 9 [facility] Protein, UA Positive Negative - 1999(20) ++++ mg/dL [facility] Comment on above: 30 Spec Grav, UA 1.030 1 - 1.03 [facility] Urobilinogen, UA 1.0 0.2 - 12 mg/dL [facility] In office Testingon 09-06-20 23 In office Testing [id number] 1.00CD:127 Normal [facility] CBC AUTO DIFFon 07-30-2022 BASO # 0.1 103/ul Normal 0.0-0.1 [facility] Comment on above: Performed By: #### U RCX #### [facility] [address] [address] [address] Caitlin Martinez Basophils/100 WBC (Bld) 1.1 % Normal 0.2-2.0 [facility] Comment on above: Performed By: #### U RCX #### [facility] [address] [address] [address] Caitlin Martinez EO # 0.3 103/ul Normal 0.0-0.7 [facility] Comment on above: Performed By: #### U RCX #### [facility] [address] [place] [address] Dr. Caitlin Martinez Eosinophils/100 WBC (Bld) 4.7 % Normal 0.9-7.0 [facility] Comment on above: Performed By: #### U RCX #### [facility] [address] [place] [address] Dr. Caitlin Martinez Erythrocyte distribution width (RBC) [Ratio] 14.7 % Normal 11.0-15.0 [facility] Comment on above: Performed By: #### U RCX #### [facility] [address] [place] [address] Dr. Caitlin Martinez Hematocrit (Bld) [Volume fraction] 39.3 % Normal 36.0-48.0 [facility] Comment on above: Performed By: #### U RCX #### [facility] [address] [address] [address] Caitlin Martinez Hemoglobin (Bld) [Mass/Vol] 12.7 g/dL Normal 12.0-16.0 [facility] Comment on above: Performed By: #### U RCX #### [facility] [address] [place] [address] Dr. Caitlin Martinez IG # 0.02 10e3/ul Normal 0.00-0.03 [facility] Comment on above: Performed By: #### U RCX #### [facility] [address] [place] [address] Dr. Caitlin Martinez IG % 0.3 % Normal 0.0-0.5 [facility] Comment on above: Performed By: #### U RCX #### [facility] [address] [address] [address] Caitlin Martinez LYMPH # 2.5 103/ul Normal 1.2-3.8 [facility] Comment on above: Performed By: #### U RCX #### [facility] [address] [place] [address] Dr. Caitlin Martinez Lymphocytes/100 WBC (Bld) 34.5 % Normal 20.5-60.0 [facility] Comment on above: Performed By: #### U RCX #### [facility] [address] [place] [address] Dr. Caitlin Martinez MANUAL DIFF REQ NO Normal [facility] Comment on above: Performed By: #### U RCX #### [facility] [address] [place] [address] Dr. Caitlin Martinez MCH (RBC) [Entitic mass] 27.3 pg Normal 26.7-34.0 [facility] Comment on above: Performed By: #### U RCX #### [facility] [address] [place] [address] Dr. Caitlin Martinez MCHC (RBC) [Mass/Vol] 32.3 g/dL Normal 29.9-35.2 [facility] Comment on above: Performed By: #### U RCX #### [facility] [address] [place] [address] Dr. Caitlin Martinez MCV (RBC) [Entitic vol] 84.5 fL Normal 81.0-99.0 [facility] Comment on above: Performed By: #### U RCX #### [facility] [address] [place] [address] Dr. Caitlin Martinez MONO # 0.5 103/ul Normal 0.3-0.8 [facility] Comment on above: Performed By: #### U RCX #### [facility] [address] [address] [address] Caitlin Martinez Monocytes/100 WBC (Bld) 7.3 % Normal 1.7-12.0 [facility] Comment on above: Performed By: #### U RCX #### [facility] [address] [address] [address] Caitlin Martinez NEUT # 3.8 103/ul Normal 1.4-6.5 [facility] Comment on above: Performed By: #### U RCX #### [facility] [address] [address] [address] Caitlin Martinez Neutrophils/100 WBC (Bld) 52.1 % Normal 43.0-75.0 [facility] Comment on above: Performed By: #### U RCX #### [facility] [address] [place] [address] Dr. Caitlin Martinez Platelet mean volume (Bld) [Entitic vol] 9.0 fL Critically low 9.5-13.5 [facility] Comment on above: Performed By: #### U RCX #### [facility] [address] [place] [address] Dr. Caitlin Martinez PLT 368 103/ul Normal 150-450 [facility] Comment on above: Performed By: #### U RCX #### [facility] [address] [address] [address] Caitlin Martinez RBC 4.65 106/ul Normal 4.20-5.40 [facility] Comment on above: Performed By: #### U RCX #### [facility] [address] [address] [address] Caitlin Martinez WBC 7.2 103/ul Normal 4.0-11.0 [facility] Comment on above: Performed By: #### U RCX #### [facility] [address] [place] [address] Dr. Caitlin Martinez IRONon 07-30-2022 Iron [Mass/Vol] 43.0 ug/dL Critically low 50.0-170.0 [facility] Comment on above: Performed By: #### U RCX #### [facility] [address] [address] [address] Caitlin Martinez PAP ACOG PANEL 2: 22 to 30on 07-30-2022 . . Normal [facility] Comment on above: Performed By: #### U RCX #### [facility] [address] [address] [address] Caitlin Martinez Age Gdln ACOG Testing 22- [facility] Comment on above: Performed By: #### U RCX #### [facility] [address] [address] [address] Caitlin Martinez DIAGNOSIS: Comment [facility] Comment on above: Result Comment: NEGA TIVE FOR INTRAEPITHELIAL LESION OR MALIGNANCY. Performed By: #### U RCX #### [facility] [address] [place] [address] Dr. Caitlin Martinez Methodology: Comment [facility] Comment on above: Result Comment: This liquid based ThinPrep(R) pap test was screened with the use of an image guided system. Performed By: #### U RCX #### [facility] [address] [place] [address] Dr. Caitlin Martinez Note: Comment [facility] Comment on above: Result Comment: The Pap smear is a screening test designed to aid in the detection of premalignant and malignant conditions of the uterine cervix. It is not a diagnostic procedure and should not be used as the sole means of detecting cervical cancer. Both false-positive and false-negative reports do occur. . Performed By: #### U RCX #### [facility] [address] [address] [address] Caitlin Martinez Performed by: Comment Normal [facility] Comment on above: Result Comment: Bhavna Cormier, Pattern Worker (ASCP) Performed By: #### U RCX #### [facility] [address] [address] [address] Caitlin Martinez Reflex Criteria: Comment [facility] Comment on above: Result Comment: The HPV DNA reflex criteria were not met with this specimen result therefore, no HPV testing was performed. . Performed By: #### U RCX #### [facility] [address] [place] [address] Dr. Caitlin Martinez Specimen adequacy: Comment Normal [facility] Comment on above: Result Comment: Sati sfactory for evaluation. Endocervical and/or squamous metaplastic cells (endocervical component) are present. Performed By: #### U RCX #### [facility] [address] [place] [address] Dr. Caitlin Martinez INSULINon 04-19-2022 Insulin 9.1 uIU/mL Normal 2.6-24.9 [facility] Comment on above: Performed By: #### I HORACIO #### [facility] [address] [place] [address] Dr. Caitlin Martinez CBC AUTO DIFFon 04-18-2022 BASO # 0.1 103/ul Normal 0.0-0.1 [facility] Comment on above: Performed By: #### U RCX #### [facility] [address] [place] [address] Dr. Caitlin Martinez Basophils/100 WBC (Bld) 1.0 % Normal 0.2-2.0 [facility] Comment on above: Performed By: #### U RCX #### [facility] [address] [place] [address] Dr. Caitlin Martinez EO # 0.3 103/ul Normal 0.0-0.7 [facility] Comment on above: Performed By: #### U RCX #### [facility] [address] [place] [address] Dr. Caitlin Martinez Eosinophils/100 WBC (Bld) 4.1 % Normal 0.9-7.0 [facility] Comment on above: Performed By: #### U RCX #### [facility] [address] [place] [address] Dr. Caitlin Martinez Erythrocyte distribution width (RBC) [Ratio] 16.0 % Critically high 11.0-15.0 [facility] Comment on above: Performed By: #### U RCX #### [facility] [address] [address] [address] Caitlin Martinez Hematocrit (Bld) [Volume fraction] 35.7 % Critically low 36.0-48.0 [facility] Comment on above: Performed By: #### U RCX #### [facility] [address] [address] [address] Caitlin Martinez Hemoglobin (Bld) [Mass/Vol] 10.9 g/dL Critically low 12.0-16.0 [facility] Comment on above: Performed By: #### U RCX #### [facility] [address] [address] [address] Caitlin Martinez IG # 0.07 10e3/ul Critically high 0.00-0.03 [facility] Comment on above: Performed By: #### U RCX #### [facility] [address] [place] [address] Dr. Caitlin Martinez IG % 1.0 % Critically high 0.0-0.5 [facility] Comment on above: Performed By: #### U RCX #### [facility] [address] [place] [address] Dr. Caitlin Martinez LYMPH # 2.3 103/ul Normal 1.2-3.8 [facility] Comment on above: Performed By: #### U RCX #### [facility] [address] [place] [address] Dr. Caitlin Martinez Lymphocytes/100 WBC (Bld) 31.4 % Normal 20.5-60.0 [facility] Comment on above: Performed By: #### U RCX #### [facility] [address] [place] [address] Dr. Caitlin Martinez MANUAL DIFF REQ NO Normal [facility] Comment on above: Performed By: #### U RCX #### [facility] [address] [place] [address] Dr. Caitlin Martinez MCH (RBC) [Entitic mass] 24.8 pg Critically low 26.7-34.0 [facility] Comment on above: Performed By: #### U RCX #### [facility] [address] [address] [address] Caitlin Martinez MCHC (RBC) [Mass/Vol] 30.5 g/dL Normal 29.9-35.2 [facility] Comment on above: Performed By: #### U RCX #### [facility] [address] [address] [address] Caitlin Martinez MCV (RBC) [Entitic vol] 81.1 fL Normal 81.0-99.0 [facility] Comment on above: Performed By: #### U RCX #### [facility] [address] [address] [address] Caitlin Martinez MONO # 0.5 103/ul Normal 0.3-0.8 [facility] Comment on above: Performed By: #### U RCX #### [facility] [address] [place] [address] Dr. Caitlin Martinez Monocytes/100 WBC (Bld) 6.6 % Normal 1.7-12.0 [facility] Comment on above: Performed By: #### U RCX #### [facility] [address] [address] [address] Caitlin Martinez NEUT # 4.1 103/ul Normal 1.4-6.5 [facility] Comment on above: Performed By: #### U RCX #### [facility] [address] [place] [address] Dr. Caitlin Martinez Neutrophils/100 WBC (Bld) 55.9 % Normal 43.0-75.0 [facility] Comment on above: Performed By: #### U RCX #### [facility] [address] [address] [address] Caitlin Martienz Platelet mean volume (Bld) [Entitic vol] 9.4 fL Critically low 9.5-13.5 [facility] Comment on above: Performed By: #### U RCX #### [facility] [address] [place] [address] Dr. Caitlin Martinez PLT 369 103/ul Normal 150-450 [facility] Comment on above: Performed By: #### U RCX #### [facility] [address] [address] [address] Caitlin Martinez RBC 4.40 106/ul Normal 4.20-5.40 [facility] Comment on above: Performed By: #### U RCX #### [facility] [address] [address] [address] Caitlin Martinez WBC 7.3 103/ul Normal 4.0-11.0 [facility] Comment on above: Performed By: #### U RCX #### [facility] [address] [address] [address] Caitlni Martinez FREE THYROXINE INDEX T7on FTI 2.20 Normal 1.30-4.50 [facility] Comment on above: Performed By: #### I HORACIO #### [facility] [address] [place] [address] Dr. Caitlin Martinez T3U 29.0 % Critically low 30.0-39.0 [facility] Comment on above: Performed By: #### I HORACIO #### [facility] [address] [place] [address] Dr. Caitlin Martinez T4 [Mass/Vol] 7.60 ug/dL Normal 4.80-13.90 [facility] Comment on above: Performed By: #### I HORACIO #### [facility] [address] [place] [address] Dr. Caitlin Martinez GLYCOHEMOGLOBIN A1Con 2021 ADA RECOMMENDATION SEE BELOW Normal [facility] Comment on above: Result Comment: ADA RECOMMENDED LIMIT 4.0 - 6.0 ADA THERAPEUTIC TARGET < 7.0 ACTION SUGGESTED > 7.0 Performed By: #### U RCX #### [facility] [address] [place] [address] Dr. Caitlin Martinez Glucose [Mass/Vol] 97 mg/dL Normal [facility] Comment on above: Performed By: #### U RCX #### [facility] [address] [place] [address] Dr. Caitlin Martinez HbA1c (Bld) [Mass fraction] 5.0 % Normal 4.5-6.2 [facility] Comment on above: Performed By: #### U RCX #### [facility] [address] [address] [address] Caitlin Martinez IRONon 04-18-2022 Iron [Mass/Vol] 35.0 ug/dL Critically low 50.0-170.0 [facility] Comment on above: Performed By: #### I HORACIO #### [facility] [address] [address] [address] Caitlin Mratinez LIPID PROFILEon 04-18-2022 CHOL-HDL RATIO NORM SEE BELOW Normal [facility] Comment on above: Result Comment: 3.3 - 4.4 LOW RISK 4.4 - 7.1 AVERAGE RISK 7.1 - 11.0 MODERATE RISK >11.0 HIGH RISK Performed By: #### I HORACIO #### [facility] [address] [place] [address] Dr. Caitlin Martinez Cholesterol [Mass/Vol] 221 mg/dL Critically high <=200 [facility] Comment on above: Performed By: #### I HORACIO #### [facility] [address] [place] [address] Dr. Caitlin Martinez Cholesterol in HDL [Mass/Vol] 67 mg/dL Critically high 40-60 [facility] Comment on above: Performed By: #### I HORACIO #### [facility] [address] [place] [address] Dr. Caitlin Martinez Cholesterol in LDL [Mass/Vol] 142.4 mg/dL Normal [facility] Comment on above: Performed By: #### I HORACIO #### [facility] [address] [address] [address] Caitlin Martinez Cholesterol.total/Cho lesterol in HDL [Mass ratio] 3.3 {ratio} Normal [facility] Comment on above: Performed By: #### I HORACIO #### [facility] [address] [place] [address] Dr. Caitlin Martinez HDL NORMAL > or = 60 mg/dl - LO W CARDIOVASCULAR RISK <40 mg/dl - HIGH CARDIOVASCULAR RISK Normal [facility] Comment on above: Performed By: #### I HORACIO #### [facility] [address] [place] [address] Dr. Caitlin Martinez LDL CALC NORMAL SEE BELOW Normal [facility] Comment on above: Result Comment: <100 mg/dl OPTIMAL 100 - 129 mg/dl NEAR OR ABOVE OPTIMAL 130 - 159 mg/dl BORDERLINE HIGH 160 - 189 mg/dl HIGH >190 mg/dl VERY HIGH Performed By: #### I HORACIO #### [facility] [address] [address] [address] Caitlin Martinez Triglyceride [Mass/Vol] 58 mg/dL Normal <=150 [facility] Comment on above: Performed By: #### I HORACIO #### [facility] [address] [address] [address] Caitlin Martinez VLDL CALC 11.6 mg/dL Normal [facility] Comment on above: Performed By: #### I HORACIO #### [facility] [address] [address] [address] Caitlin Martinez PROF 14(COMP METB)on 022 Albumin [Mass/Vol] 3.8 g/dL Normal 3.4-5.0 [facility] Comment on above: Performed By: #### I HORACIO #### [facility] [address] [address] [address] aCitlin Martinez Albumin/Globulin [Mass ratio] 1.1 {ratio} Normal [facility] Comment on above: Performed By: #### I HORACIO #### [facility] [address] [address] [address] Caitlin Martinez ALP [Catalytic activity/Vol] 132 U/L Critically high 46-116 [facility] Comment on above: Performed By: #### I HORACIO #### [facility] [address] [address] [address] Caitlin Martinez ALT [Catalytic activity/Vol] 55 U/L Normal 14-59 [facility] Comment on above: Performed By: #### I HORACIO #### [facility] [address] [address] [address] Caitlin Martinez Anion gap [Moles/Vol] 12.6 mmol/L Normal [facility] Comment on above: Performed By: #### I HORACIO #### [facility] [address] [place] [address] Dr. Caitlin Martinez AST [Catalytic activity/Vol] 27 U/L Normal 15-37 [facility] Comment on above: Performed By: #### I HORACIO #### [facility] [address] [place] [address] Dr. Caitlin Martinez Bilirubin [Mass/Vol] 0.6 mg/dL Normal 0.2-1.0 [facility] Comment on above: Performed By: #### I HORACIO #### [facility] [address] [place] [address] Dr. Caitlin Martinez Calcium [Mass/Vol] 9.1 mg/dL Normal 8.5-10.1 [facility] Comment on above: Performed By: #### I HORACIO #### [facility] [address] [place] [address] Dr. Caitlin Martinez Chloride [Moles/Vol] 106 mmol/L Normal 98-107 [facility] Comment on above: Performed By: #### I HORACIO #### [facility] [address] [place] [address] Dr. Caitlin Martinez CO2 [Moles/Vol] 26.5 mmol/L Normal 21.0-32.0 [facility] Comment on above: Performed By: #### I HORACIO #### [facility] [address] [place] [address] Dr. Caitlin Martinez Creatinine [Mass/Vol] 0.63 mg/dL Normal 0.55-1.02 [facility] Comment on above: Performed By: #### I HORACIO #### [facility] [address] [place] [address] Dr. Caitlin Martinez EGFR-AF MALDIVIAN >60 Normal >=60 [facility] Comment on above: Performed By: #### I HORACIO #### [facility] [address] [place] [address] Dr. Caitlin Martinez EGFR-NON AF MALDIVIAN >60 Normal >=60 [facility] Comment on above: Performed By: #### I HORACIO #### [facility] [address] [place] [address] Dr. Caitlin Martinez Globulin (S) [Mass/Vol] 3.6 g/dL Normal [facility] Comment on above: Performed By: #### I HORACIO #### [facility] [address] [place] [address] Dr. Caitlin Martinez Glucose [Mass/Vol] 98 mg/dL Normal 74-106 [facility] Comment on above: Performed By: #### I HORACIO #### [facility] [address] [address] [address] Caitlin Martinez Potassium [Moles/Vol] 4.1 mmol/L Normal 3.5-5.1 [facility] Comment on above: Performed By: #### I HORACIO #### [facility] [address] [place] [address] Dr. Caitlin Martinez Protein [Mass/Vol] 7.4 g/dL Normal 6.4-8.2 [facility] Comment on above: Performed By: #### I HORACIO #### [facility] [address] [place] [address] Dr. Caitlin Martinez Sodium [Moles/Vol] 141 mmol/L Normal 136-145 [facility] Comment on above: Performed By: #### I HORACIO #### [facility] [address] [place] [address] Dr. Caitlin Martinez Urea nitrogen [Mass/Vol] 9.0 mg/dL Normal 7.0-18.0 [facility] Comment on above: Performed By: #### I HORACIO #### [facility] [address] [place] [address] Dr. Caitlin Martinez Urea nitrogen/Creatinine [Mass ratio] 14.3 mg/mg Normal [facility] Comment on above: Performed By: #### I HORACIO #### [facility] [address] [place] [address] Dr. Caitlin Martinez TSHon 04-18-2022 TSH 1.349 uIU/mL Normal 0.358-3.740 [facility] Comment on above: Performed By: #### I HORACIO #### [facility] [address] [place] [address] Dr. Caitlin Martinez ANTIBODY ID PANELon 02-15-20 22 ANTIBODY ID PANEL Antibody ID Anti-D Blood Bank Notes most likely due to Rhogam given on 12/01/21 Normal [facility] Comment on above: Performed By: #### D IRCMBTRACY #### [facility] [address] [place] [address] Dr. Caitlin Martinez CTA CHEST WO W [...] GAGANDEEP WHEELER Date: 2022-02-10 22:55 Normal [facility] CBC AUTO DIFFon 02-10-2022 BASO # 0.1 103/ul Normal 0.0-0.1 [facility] Comment on above: Performed By: #### C BC #### [facility] [address] [place] [address] Dr. Caitlin Martinez Basophils/100 WBC (Bld) 0.4 % Normal 0.2-2.0 [facility] Comment on above: Performed By: #### C BC #### [facility] [address] [place] [address] Dr. Caitlin Martinez EO # 0.5 103/ul Normal 0.0-0.7 [facility] Comment on above: Performed By: #### C BC #### [facility] [address] [place] [address] Dr. Caitlin Martinez Eosinophils/100 WBC (Bld) 4.2 % Normal 0.9-7.0 [facility] Comment on above: Performed By: #### C BC #### [facility] [address] [place] [address] Dr. Caitlin Martinez Erythrocyte distribution width (RBC) [Ratio] 14.7 % Normal 11.0-15.0 [facility] Comment on above: Performed By: #### C BC #### [facility] [address] [place] [address] Dr. Caitlin Martinez Hematocrit (Bld) [Volume fraction] 31.1 % Critically low 36.0-48.0 [facility] Comment on above: Performed By: #### C BC #### [facility] [address] [place] [address] Dr. Caitlin Martinez Hemoglobin (Bld) [Mass/Vol] 9.6 g/dL Critically low 12.0-16.0 [facility] Comment on above: Performed By: #### C BC #### [facility] [address] [place] [address] Dr. Caitlin Martinez IG # 0.28 10e3/ul Critically high 0.00-0.03 [facility] Comment on above: Performed By: #### C BC #### [facility] [address] [place] [address] Dr. Caitlin Martinez IG % 2.3 % Critically high 0.0-0.5 [facility] Comment on above: Performed By: #### C BC #### [facility] [address] [place] [address] Dr. Caitlin Martinez LYMPH # 3.3 103/ul Normal 1.2-3.8 [facility] Comment on above: Performed By: #### C BC #### [facility] [address] [place] [address] Dr. Caitlin Martinez Lymphocytes/100 WBC (Bld) 26.9 % Normal 20.5-60.0 [facility] Comment on above: Performed By: #### C BC #### [facility] [address] [place] [address] Dr. Caitlin Martinez MANUAL DIFF REQ NO Normal [facility] Comment on above: Performed By: #### C BC #### [facility] [address] [address] [address] Caitlin Martinez MCH (RBC) [Entitic mass] 26.2 pg Critically low 26.7-34.0 [facility] Comment on above: Performed By: #### C BC #### [facility] [address] [place] [address] Dr. Caitlin Martinez MCHC (RBC) [Mass/Vol] 30.9 g/dL Normal 29.9-35.2 [facility] Comment on above: Performed By: #### C BC #### [facility] [address] [place] [address] Dr. Caitlin Martinez MCV (RBC) [Entitic vol] 84.7 fL Normal 81.0-99.0 [facility] Comment on above: Performed By: #### C BC #### [facility] [address] [place] [address] Dr. Caitlin Martinez MONO # 1.1 103/ul Critically high 0.3-0.8 [facility] Comment on above: Performed By: #### C BC #### [facility] [address] [place] [address] Dr. Caitlin Martinez Monocytes/100 WBC (Bld) 8.7 % Normal 1.7-12.0 [facility] Comment on above: Performed By: #### C BC #### [facility] [address] [place] [address] Dr. Caitlin Martinez NEUT # 7.0 103/ul Critically high 1.4-6.5 [facility] Comment on above: Performed By: #### C BC #### [facility] [address] [place] [address] Dr. Caitlin Martinez Neutrophils/100 WBC (Bld) 57.5 % Normal 43.0-75.0 [facility] Comment on above: Performed By: #### C BC #### [facility] [address] [place] [address] Dr. Caitlin Martinez Platelet mean volume (Bld) [Entitic vol] 9.1 fL Critically low 9.5-13.5 [facility] Comment on above: Performed By: #### C BC #### [facility] [address] [address] [address] Caitlin Martinez PLT 437 103/ul Normal 150-450 [facility] Comment on above: Performed By: #### C BC #### [facility] [address] [address] [address] Caitlin Martinez RBC 3.67 106/ul Critically low 4.20-5.40 [facility] Comment on above: Performed By: #### C BC #### [facility] [address] [address] [address] Caitlin Martinez WBC 12.3 103/ul Critically high 4.0-11.0 [facility] Comment on above: Performed By: #### C BC #### [facility] [address] [place] [address] Dr. Caitlin Martinez Covid-19 PCR ([facility])on 01-16 SARS-CoV-2 (COVID-19) RNA JONATAN+probe Ql (Unsp spec) Not detected Normal NOT DETECTED [facility] Comment on above: Result Comment: When [...] for this test is supported by the Lapper of Health and Human Service's declaration that [...] used). Performed By: #### C VDTBH #### [facility] [address] [place] [address] Dr. Caitlin Martinez PROF 14(COMP METB)on 022 Albumin [Mass/Vol] 2.1 g/dL Critically low 3.4-5.0 [facility] Comment on above: Performed By: #### U RCX #### [facility] [address] [place] [address] Dr. Caitlin Martinez Albumin/Globulin [Mass ratio] 0.5 {ratio} Normal [facility] Comment on above: Performed By: #### U RCX #### [facility] [address] [place] [address] Dr. Caitlin Martinez ALP [Catalytic activity/Vol] 202 U/L Critically high 46-116 [facility] Comment on above: Performed By: #### U RCX #### [facility] [address] [place] [address] Dr. Caitlin Martinez ALT [Catalytic activity/Vol] 20 U/L Normal 14-59 [facility] Comment on above: Performed By: #### U RCX #### [facility] [address] [place] [address] Dr. Caitlin Martinez Anion gap [Moles/Vol] 11.6 mmol/L Normal [facility] Comment on above: Performed By: #### U RCX #### [facility] [address] [place] [address] Dr. Caitlin Martinez AST [Catalytic activity/Vol] 17 U/L Normal 15-37 [facility] Comment on above: Performed By: #### U RCX #### [facility] [address] [place] [address] Dr. Caitlin Martinez Bilirubin [Mass/Vol] 0.3 mg/dL Normal 0.2-1.0 [facility] Comment on above: Performed By: #### U RCX #### [facility] [address] [place] [address] Dr. Caitlin Martinez Calcium [Mass/Vol] 9.2 mg/dL Normal 8.5-10.1 [facility] Comment on above: Performed By: #### U RCX #### [facility] [address] [place] [address] Dr. Caitlin Martinez Chloride [Moles/Vol] 104 mmol/L Normal 98-107 [facility] Comment on above: Performed By: #### U RCX #### [facility] [address] [address] [address] Caitlin Martinez CO2 [Moles/Vol] 26.9 mmol/L Normal 21.0-32.0 [facility] Comment on above: Performed By: #### U RCX #### [facility] [address] [address] [address] Caitlin Martinez Creatinine [Mass/Vol] 0.56 mg/dL Normal 0.55-1.02 [facility] Comment on above: Performed By: #### U RCX #### [facility] [address] [place] [address] Dr. Caitlin Martinez EGFR-AF MALDIVIAN >60 Normal >=60 [facility] Comment on above: Performed By: #### U RCX #### [facility] [address] [place] [address] Dr. Caitlin Martinez EGFR-NON AF MALDIVIAN >60 Normal >=60 [facility] Comment on above: Performed By: #### U RCX #### [facility] [address] [place] [address] Dr. Caitlin Martinez Globulin (S) [Mass/Vol] 4.4 g/dL Normal [facility] Comment on above: Performed By: #### U RCX #### [facility] [address] [place] [address] Dr. Caitlin Martinez Glucose [Mass/Vol] 108 mg/dL Critically high 74-106 [facility] Comment on above: Performed By: #### U RCX #### [facility] [address] [address] [address] Caitlin Martinez Potassium [Moles/Vol] 3.5 mmol/L Normal 3.5-5.1 [facility] Comment on above: Performed By: #### U RCX #### [facility] [address] [place] [address] Dr. Caitlin Martinez Protein [Mass/Vol] 6.5 g/dL Normal 6.4-8.2 [facility] Comment on above: Performed By: #### U RCX #### [facility] [address] [place] [address] Dr. Caitlin Martinez Sodium [Moles/Vol] 139 mmol/L Normal 136-145 [facility] Comment on above: Performed By: #### U RCX #### [facility] [address] [place] [address] Dr. Caitlin Martinez Urea nitrogen [Mass/Vol] 7.0 mg/dL Normal 7.0-18.0 [facility] Comment on above: Performed By: #### U RCX #### [facility] [address] [place] [address] Dr. Caitlin Martinez Urea nitrogen/Creatinine [Mass ratio] 12.5 mg/mg Normal [facility] Comment on above: Performed By: #### U RCX #### [facility] [address] [place] [address] Dr. Caitlin Martinez TROPONIN, HIGH SENSITIVITYon 02-10-2022 HSTROP <4.0 Normal 4.0-51.3 [facility] Comment on above: Result Comment: CUT- OFF POINTS HAVE BEEN ESTABLISHED BASED ON THE FOURTH UNIVERSAL DEFINITIONS OF MYOCARDIAL INFARCTION. THE UPPER REFERENCE LIMIT (URL) OF TROPONIN, DEFINED THE 99TH PERCENTILE OF cTnI DISTRIBUTION IN A REFERENCE POPULATION, HAS BEEN CONFIRMED THE DECISION THRESHOLD FOR LA DIAGNOSIS. Performed By: #### U RCX #### [facility] [address] [place] [address] Dr. Caitlin Martinez CBC AUTO DIFFon 02-09-2022 BASO # 0.1 103/ul Normal 0.0-0.1 [facility] Comment on above: Performed By: #### U RCX #### [facility] [address] [place] [address] Dr. Caitlin Martinez Basophils/100 WBC (Bld) 0.6 % Normal 0.2-2.0 [facility] Comment on above: Performed By: #### U RCX #### [facility] [address] [place] [address] Dr. Caitlin Martinez EO # 0.3 103/ul Normal 0.0-0.7 [facility] Comment on above: Performed By: #### U RCX #### [facility] [address] [place] [address] Dr. Caitlin Martinez Eosinophils/100 WBC (Bld) 2.3 % Normal 0.9-7.0 [facility] Comment on above: Performed By: #### U RCX #### [facility] [address] [place] [address] Dr. Caitlin Martinez Erythrocyte distribution width (RBC) [Ratio] 14.6 % Normal 11.0-15.0 [facility] Comment on above: Performed By: #### U RCX #### [facility] [address] [place] [address] Dr. Caitlin Martinez Hematocrit (Bld) [Volume fraction] 28.8 % Critically low 36.0-48.0 [facility] Comment on above: Performed By: #### U RCX #### [facility] [address] [place] [address] Dr. Caitlin Martinez Hemoglobin (Bld) [Mass/Vol] 9.0 g/dL Critically low 12.0-16.0 [facility] Comment on above: Performed By: #### U RCX #### [facility] [address] [place] [address] Dr. Caitlin Martinez IG # 0.20 10e3/ul Critically high 0.00-0.03 [facility] Comment on above: Performed By: #### U RCX #### [facility] [address] [place] [address] Dr. Caitlin Martinez IG % 1.5 % Critically high 0.0-0.5 [facility] Comment on above: Performed By: #### U RCX #### [facility] [address] [place] [address] Dr. Caitlin Martinez LYMPH # 3.0 103/ul Normal 1.2-3.8 [facility] Comment on above: Performed By: #### U RCX #### [facility] [address] [place] [address] Dr. Caitlin Martinez Lymphocytes/100 WBC (Bld) 22.2 % Normal 20.5-60.0 [facility] Comment on above: Performed By: #### U RCX #### [facility] [address] [place] [address] Dr. Caitlin Martinez MANUAL DIFF REQ NO Normal [facility] Comment on above: Performed By: #### U RCX #### [facility] [address] [place] [address] Dr. Caitlin Martinez MCH (RBC) [Entitic mass] 26.2 pg Critically low 26.7-34.0 [facility] Comment on above: Performed By: #### U RCX #### [facility] [address] [place] [address] Dr. Caitlin Martinez MCHC (RBC) [Mass/Vol] 31.3 g/dL Normal 29.9-35.2 [facility] Comment on above: Performed By: #### U RCX #### [facility] [address] [place] [address] Dr. Caitlin Martinez MCV (RBC) [Entitic vol] 83.7 fL Normal 81.0-99.0 [facility] Comment on above: Performed By: #### U RCX #### [facility] [address] [place] [address] Dr. Caitlin Martinez MONO # 1.3 103/ul Critically high 0.3-0.8 [facility] Comment on above: Performed By: #### U RCX #### [facility] [address] [place] [address] Dr. Caitlin Martinez Monocytes/100 WBC (Bld) 9.8 % Normal 1.7-12.0 [facility] Comment on above: Performed By: #### U RCX #### [facility] [address] [place] [address] Dr. Caitlin Martinez NEUT # 8.5 103/ul Critically high 1.4-6.5 [facility] Comment on above: Performed By: #### U RCX #### [facility] [address] [place] [address] Dr. Caitlin Martinez Neutrophils/100 WBC (Bld) 63.6 % Normal 43.0-75.0 [facility] Comment on above: Performed By: #### U RCX #### [facility] [address] [place] [address] Dr. Caitlin Martinez Platelet mean volume (Bld) [Entitic vol] 9.1 fL Critically low 9.5-13.5 [facility] Comment on above: Performed By: #### U RCX #### [facility] [address] [place] [address] Dr. Caitlin Martinez PLT 355 103/ul Normal 150-450 [facility] Comment on above: Performed By: #### U RCX #### [facility] [address] [place] [address] Dr. Caitlin Martinez RBC 3.44 106/ul Critically low 4.20-5.40 [facility] Comment on above: Performed By: #### U RCX #### [facility] [address] [place] [address] Dr. Caitlin Martinez WBC 13.3 103/ul Critically high 4.0-11.0 [facility] Comment on above: Performed By: #### U RCX #### [facility] [address] [place] [address] Dr. Caitlin Martinez SCREENon 02-09-2022 SCREEN Negative Normal [facility] Comment on above: Performed By: #### F ETSCRN #### [facility] [address] [place] [address] Dr. Caitlin Martinez CBC AUTO DIFFon 02-08-2022 BASO # 0.1 103/ul Normal 0.0-0.1 [facility] Comment on above: Performed By: #### U RCX #### [facility] [address] [place] [address] Dr. Caitlin Martinez Basophils/100 WBC (Bld) 0.4 % Normal 0.2-2.0 [facility] Comment on above: Performed By: #### U RCX #### [facility] [address] [place] [address] Dr. Caitlin Martinez EO # 0.3 103/ul Normal 0.0-0.7 [facility] Comment on above: Performed By: #### U RCX #### [facility] [address] [address] [address] Caitlin Martinez Eosinophils/100 WBC (Bld) 2.6 % Normal 0.9-7.0 [facility] Comment on above: Performed By: #### U RCX #### [facility] [address] [address] [address] Caitlin Martinez Erythrocyte distribution width (RBC) [Ratio] 14.7 % Normal 11.0-15.0 [facility] Comment on above: Performed By: #### U RCX #### [facility] [address] [place] [address] Dr. Caitlin Martinez Hematocrit (Bld) [Volume fraction] 30.6 % Critically low 36.0-48.0 [facility] Comment on above: Performed By: #### U RCX #### [facility] [address] [place] [address] Dr. Caitlin Martinez Hemoglobin (Bld) [Mass/Vol] 9.7 g/dL Critically low 12.0-16.0 [facility] Comment on above: Performed By: #### U RCX #### [facility] [address] [place] [address] Dr. Caitlin Martinez IG # 0.15 10e3/ul Critically high 0.00-0.03 [facility] Comment on above: Performed By: #### U RCX #### [facility] [address] [place] [address] Dr. Caitlin Martinez IG % 1.3 % Critically high 0.0-0.5 [facility] Comment on above: Performed By: #### U RCX #### [facility] [address] [place] [address] Dr. Caitlin Martinez LYMPH # 2.8 103/ul Normal 1.2-3.8 [facility] Comment on above: Performed By: #### U RCX #### [facility] [address] [place] [address] Dr. Caitlin Martinez Lymphocytes/100 WBC (Bld) 24.8 % Normal 20.5-60.0 [facility] Comment on above: Performed By: #### U RCX #### [facility] [address] [place] [address] Dr. Caitlin Martinez MANUAL DIFF REQ NO Normal [facility] Comment on above: Performed By: #### U RCX #### [facility] [address] [address] [address] Caitlin Martinez MCH (RBC) [Entitic mass] 26.6 pg Critically low 26.7-34.0 [facility] Comment on above: Performed By: #### U RCX #### [facility] [address] [place] [address] Dr. Caitlin Martinez MCHC (RBC) [Mass/Vol] 31.7 g/dL Normal 29.9-35.2 [facility] Comment on above: Performed By: #### U RCX #### [facility] [address] [place] [address] Dr. Caitlin Martinez MCV (RBC) [Entitic vol] 83.8 fL Normal 81.0-99.0 [facility] Comment on above: Performed By: #### U RCX #### [facility] [address] [place] [address] Dr. Caitlin Martinez MONO # 1.0 103/ul Critically high 0.3-0.8 [facility] Comment on above: Performed By: #### U RCX #### [facility] [address] [place] [address] Dr. Caitlin Martinez Monocytes/100 WBC (Bld) 8.7 % Normal 1.7-12.0 [facility] Comment on above: Performed By: #### U RCX #### [facility] [address] [place] [address] Dr. Caitlin Martinez NEUT # 7.0 103/ul Critically high 1.4-6.5 [facility] Comment on above: Performed By: #### U RCX #### [facility] [address] [address] [address] Caitlin Martinez Neutrophils/100 WBC (Bld) 62.2 % Normal 43.0-75.0 [facility] Comment on above: Performed By: #### U RCX #### [facility] [address] [address] [address] Caitlin Martinez Platelet mean volume (Bld) [Entitic vol] 9.0 fL Critically low 9.5-13.5 [facility] Comment on above: Performed By: #### U RCX #### [facility] [address] [address] [address] Caitlin Martinez PLT 373 103/ul Normal 150-450 [facility] Comment on above: Performed By: #### U RCX #### [facility] [address] [address] [address] Caitlin Martinez RBC 3.65 106/ul Critically low 4.20-5.40 [facility] [facility] Comment on above: Performed By: #### U RCX #### [facility] [address] [address] [address] Caitlin Martinez WBC 11.3 103/ul Critically high 4.0-11.0 [facility] Comment on above: Performed By: #### U RCX #### [facility] [address] [address] [address] Caitlin Martinez [facility]16 SARS-CoV-2 (COVID-19) RNA JONATAN+probe Ql (Unsp spec) Not detected Normal NOT DETECTED [facility] Comment on above: Result Comment: When [...] for this test is supported by the [place] [employer] and Human Service's declaration that [...] used). Performed By: #### C BC #### [facility] [address] [place] [address] Dr. Caitlin Martinez DIRECT COOMBSon 02-08-2022 DIRECT EDWINA Negative Normal [facility] Comment on above: Performed By: #### D IRCMB, ABID #### [facility] [address] [place] [address] Dr. Caitlin Martinez DRUG SCREEN RAPID (URINE)on 02-08-2022 AMP Negative Normal NEGATIVE [facility] Comment on above: Performed By: #### C BC #### [facility] [address] [place] [address] Dr. Caitlin Martinez BAR Negative Normal NEGATIVE [facility] Comment on above: Performed By: #### C BC #### [facility] [address] [place] [address] Dr. Caitlin Martinez BUP Negative Normal NEGATIVE [facility] Comment on above: Performed By: #### C BC #### [facility] [address] [place] [address] Dr. Caitlin Martinez BZO Negative Normal NEGATIVE [facility] Comment on above: Performed By: #### C BC #### [facility] [address] [place] [address] Dr. Caitlin Martinez JEANNA Negative Normal NEGATIVE [facility] Comment on above: Performed By: #### C BC #### [facility] [address] [place] [address] Dr. Caitlin Martinez CUT-OFFS SEE BELOW Normal [facility] Comment on above: Result Comment: AMP (Amphetamine): 500ng/mL, BAR (Barbituates): 200 ng/mL, BZO (Benzodiazepines): 150 ng/mL, BUP (Buprenorphine): 10 ng/mL, JEANNA (Cocaine): 150 ng/mL, mAMP (Methamphetamine): 500 ng/mL, MTD (Methadone): 200 ng/mL, OPI (Opiates): 100 ng/mL, OXY (Oxycodone): 100 ng/mL, PCP (Phencyclidine): 25 ng/mL, PPX (Propoxyphene): 300 ng/mL, THC (Cannabinoids): 50 ng/mL, TCA (Trycyclic Antidepressants): 300 ng/mL Performed By: #### C BC #### [facility] [address] [place] [address] Dr. Caitlin Martinez DRUG CUT HEADER DRUG CLASS TEST SYSTEM CUT-OFF CONCENTRATIONS ARE FOLLOWS: Normal [facility] Comment on above: Performed By: #### C BC #### [facility] [address] [place] [address] Dr. Caitlin Martinez mAMP Negative Normal NEGATIVE [facility] Comment on above: Performed By: #### C BC #### [facility] [address] [place] [address] Dr. Caitlin Martinez MTD Negative Normal NEGATIVE [facility] Comment on above: Performed By: #### C BC #### [facility] [address] [place] [address] Dr. Caitlin Martinez OPI Negative Normal NEGATIVE [facility] Comment on above: Performed By: #### C BC #### [facility] [address] [place] [address] Dr. Caitlin Martinez OXY Negative Normal NEGATIVE [facility] Comment on above: Performed By: #### C BC #### [facility] [address] [place] [address] Dr. Caitlin Martinez PCP Negative Normal NEGATIVE [facility] Comment on above: Performed By: #### C BC #### [facility] [address] [place] [address] Dr. Caitlin Martinez PPX Negative Normal NEGATIVE [facility] Comment on above: Performed By: #### C BC #### [facility] [address] [place] [address] Dr. Caitlin Martinez TCA Negative Normal NEGATIVE [facility] Comment on above: Performed By: #### C BC #### [facility] [address] [place] [address] Dr. Caitlin Martinez THC Negative Normal NEGATIVE [facility] Comment on above: Performed By: #### C BC #### [facility] [address] [place] [address] Dr. Caitlin Martinez TYPE AND SCREENon 02-08-2022 TYPE AND SCREEN Negative Normal [facility] Comment on above: Performed By: #### I HORACIO #### [facility] [address] [place] [address] Dr. Caitlin Martinez US PREG BIOPHY W [...] DAVID BLACKMON Date: 2022-02-05 16:28 Normal [facility] AMNISUREon 01-25-2022 AMNISURE Negative Normal NEGATIVE [facility] Comment on above: Performed By: #### A MNI #### [facility] [address] [place] [address] Dr. Caitlin Martinez CULTURE URINEon 01-25-2022 CULTURE URINE Culture Observations : No growth Normal [facility] Comment on above: Performed By: #### U RCX #### [facility] [address] [place] [address] Dr. Caitlin Martinez UA (CLEAN/CATCH) VALVER/MICRO I F IND.on 01-25-2022 Bilirubin Ql (U) Negative Normal NEGATIVE [facility] Comment on above: Performed By: #### C VDTBH #### [facility] [address] [place] [address] Dr. Caitlin Martinez Clarity (U) SL CLOUDY Abnormal CLEAR [facility] Comment on above: Performed By: #### C VDTBH #### [facility] [address] [place] [address] Dr. Caitlin Martinez Color (U) LT. YELLOW Normal YELLOW [facility] Comment on above: Performed By: #### C VDTBH #### [facility] [address] [place] [address] Dr. Caitlin Martinez Glucose Ql (U) Negative Normal NEGATIVE [facility] Comment on above: Performed By: #### C VDTBH #### [facility] [address] [place] [address] Dr. Caitlin Martinez Hemoglobin Ql (U) TRACE-INTACT Abnormal NEGATIVE [facility] Comment on above: Performed By: #### C VDTBH #### [facility] [address] [place] [address] Dr. Caitlin Martinez Ketones Ql (U) Negative Normal NEGATIVE [facility] Comment on above: Performed By: #### C VDTBH #### [facility] [address] [place] [address] Dr. Caitlin Martinez LEUKOCYTES TRACE Abnormal NEGATIVE [facility] Comment on above: Performed By: #### C VDTBH #### [facility] [address] [place] [address] Dr. Caitlin Martinez Nitrite Ql (U) Negative Normal NEGATIVE [facility] Comment on above: Performed By: #### C VDTBH #### [facility] [address] [place] [address] Dr. Caitlin Martinez pH (U) 6.5 [pH] Normal 5-9 [facility] Comment on above: Performed By: #### C VDTBH #### [facility] [address] [place] [address] Dr. Caitlin Martinez SPEC GRAVITY 1.020 Normal 1.005-<=1.025 [facility] Comment on above: Performed By: #### C VDTBH #### [facility] [address] [place] [address] Dr. Caitlin Martinez UA PROTEIN Negative Normal NEGATIVE/ TRACE [facility] Comment on above: Performed By: #### C VDTBH #### [facility] [address] [place] [address] Dr. Caitlin Martinez UR MICRO IND INDICATED Normal [facility] Comment on above: Performed By: #### C VDTBH #### [facility] [address] [place] [address] Dr. Caitlin Martinez Urobilinogen Qn (U) 0.2 {Barbara'U}/dL Normal 0.2 - 1. 0 [facility] Comment on above: Performed By: #### C VDTBH #### [facility] [address] [place] [address] Dr. Caitlin Martinez URINE MICROSCOPIC ONLYon BACTERIA MODERATE Abnormal NONE SEEN [facility] Comment on above: Performed By: #### C VDTBH #### [facility] [address] [place] [address] Dr. Caitlin Martinez Bacteria identified Cx Nom (U) INDICATED Normal [facility] Comment on above: Performed By: #### C VDTBH #### [facility] [address] [place] [address] Dr. Caitlin Martinez CAST NONE SEEN Normal NONE SEEN [facility] Comment on above: Performed By: #### C VDTBH #### [facility] [address] [place] [address] Dr. Caitlin Martinez Crystals LM Nom (Urine sed) NONE SEEN Normal NONE SEEN [facility] Comment on above: Performed By: #### C VDTBH #### [facility] [address] [place] [address] Dr. Caitlin Martinez Epithelial cells LM Ql (Urine sed) FEW Abnormal NONE SEEN /RARE [facility] Comment on above: Performed By: #### C VDTBH #### [facility] [address] [place] [address] Dr. Caitlin Martinez MUCOUS TRACE Abnormal NONE SEEN [facility] Comment on above: Performed By: #### C VDTBH #### [facility] [address] [place] [address] Dr. Caitlin Martinez RBC 2-5 Abnormal 0-2 [facility] Comment on above: Performed By: #### C VDTBH #### [facility] [address] [place] [address] Dr. Caitlin Martinez WBC 0-2 Abnormal NONE SEEN [facility] Comment on above: Performed By: #### C VDTBH #### [facility] [address] [place] [address] Dr. Caitlin Martinez AMYLASEon 01-16-2022 Amylase [Catalytic activity/Vol] 49 U/L Normal 25-115 [facility] Comment on above: Performed By: #### C VDTBH #### [facility] [address] [place] [address] Dr. Caitlin Martinez BUNon 01-16-2022 Urea nitrogen [Mass/Vol] 3.0 mg/dL Critically low 7.0-18.0 [facility] Comment on above: Performed By: #### C BC #### [facility] [address] [place] [address] Dr. Caitlin Martinez CBC AUTO DIFFon 01-16-2022 BASO # 0.1 103/ul Normal 0.0-0.1 [facility] Comment on above: Performed By: #### U RCX #### [facility] [address] [place] [address] Dr. Caitlin Martinez Basophils/100 WBC (Bld) 0.6 % Normal 0.2-2.0 [facility] Comment on above: Performed By: #### U RCX #### [facility] [address] [place] [address] Dr. Caitlin Martinez EO # 0.3 103/ul Normal 0.0-0.7 [facility] Comment on above: Performed By: #### U RCX #### [facility] [address] [place] [address] Dr. Caitlin Martinez Eosinophils/100 WBC (Bld) 2.6 % Normal 0.9-7.0 [facility] Comment on above: Performed By: #### U RCX #### [facility] [address] [place] [address] Dr. Caitlin Martinez Erythrocyte distribution width (RBC) [Ratio] 14.4 % Normal 11.0-15.0 [facility] Comment on above: Performed By: #### U RCX #### [facility] [address] [address] [address] Caitlin Martinez Hematocrit (Bld) [Volume fraction] 28.4 % Critically low 36.0-48.0 [facility] Comment on above: Performed By: #### U RCX #### [facility] [address] [place] [address] Dr. Caitlin Martinez Hemoglobin (Bld) [Mass/Vol] 9.0 g/dL Critically low 12.0-16.0 [facility] Comment on above: Performed By: #### U RCX #### [facility] [address] [place] [address] Dr. Caitlin Martinez IG # 0.11 10e3/ul Critically high 0.00-0.03 [facility] Comment on above: Performed By: #### U RCX #### [facility] [address] [place] [address] Dr. Caitlin Martinez IG % 1.1 % Critically high 0.0-0.5 [facility] Comment on above: Performed By: #### U RCX #### [facility] [address] [address] [address] Caitlin Martinez LYMPH # 2.2 103/ul Normal 1.2-3.8 [facility] Comment on above: Performed By: #### U RCX #### [facility] [address] [place] [address] Dr. Caitlin Martinez Lymphocytes/100 WBC (Bld) 21.0 % Normal 20.5-60.0 [facility] Comment on above: Performed By: #### U RCX #### [facility] [address] [place] [address] Dr. Caitlin Martinez MANUAL DIFF REQ NO Normal [facility] Comment on above: Performed By: #### U RCX #### [facility] [address] [place] [address] Dr. Caitlin Martinez MCH (RBC) [Entitic mass] 28.2 pg Normal 26.7-34.0 [facility] Comment on above: Performed By: #### U RCX #### [facility] [address] [address] [address] Caitlin Martinez MCHC (RBC) [Mass/Vol] 31.7 g/dL Normal 29.9-35.2 [facility] Comment on above: Performed By: #### U RCX #### [facility] [address] [address] [address] Caitlin Martinez MCV (RBC) [Entitic vol] 89.0 fL Normal 81.0-99.0 [facility] Comment on above: Performed By: #### U RCX #### [facility] [address] [address] [address] Caitlin Martinez MONO # 0.9 103/ul Critically high 0.3-0.8 [facility] Comment on above: Performed By: #### U RCX #### [facility] [address] [place] [address] Dr. Caitlin Martinez Monocytes/100 WBC (Bld) 8.9 % Normal 1.7-12.0 [facility] Comment on above: Performed By: #### U RCX #### [facility] [address] [address] [address] Caitlin Martinez NEUT # 6.8 103/ul Critically high 1.4-6.5 [facility] Comment on above: Performed By: #### U RCX #### [facility] [address] [place] [address] Dr. Caitlin Martinez Neutrophils/100 WBC (Bld) 65.8 % Normal 43.0-75.0 [facility] Comment on above: Performed By: #### U RCX #### [facility] [address] [address] [address] Caitlin Martinez Platelet mean volume (Bld) [Entitic vol] 8.6 fL Critically low 9.5-13.5 [facility] Comment on above: Performed By: #### U RCX #### [facility] [address] [address] [address] Caitlin Martinez PLT 322 103/ul Normal 150-450 [facility] Comment on above: Performed By: #### U RCX #### [facility] [address] [address] [address] Caitlin Martinez RBC 3.19 106/ul Critically low 4.20-5.40 [facility] Comment on above: Performed By: #### U RCX #### [facility] [address] [place] [address] Dr. Caitlin Martinez WBC 10.3 103/ul Normal 4.0-11.0 [facility] Comment on above: Performed By: #### U RCX #### [facility] [address] [address] [address] Caitlin Martinez CREATININEon 01-16-2022 Creatinine [Mass/Vol] 0.55 mg/dL Normal 0.55-1.02 [facility] Comment on above: Performed By: #### C VDTBH #### [facility] [address] [place] [address] Dr. Caitlin Martinez EGFR-AF MALDIVIAN >60 Normal >=60 [facility] Comment on above: Performed By: #### C VDTBH #### [facility] [address] [place] [address] Dr. Caitlin Martinez EGFR-NON AF MALDIVIAN >60 Normal >=60 [facility] Comment on above: Performed By: #### C VDTBH #### [facility] [address] [place] [address] Dr. Caitlin Martinez ELECTROLYTESon 01-16-2022 Anion gap [Moles/Vol] 13.6 mmol/L Normal [facility] Comment on above: Performed By: #### C VDTBH #### [facility] [address] [place] [address] Dr. Caitlin Martinez Chloride [Moles/Vol] 106 mmol/L Normal 98-107 [facility] Comment on above: Performed By: #### C VDTBH #### [facility] [address] [place] [address] Dr. Caitlin Mratinez CO2 [Moles/Vol] 22.9 mmol/L Normal 21.0-32.0 [facility] Comment on above: Performed By: #### C VDTBH #### [facility] [address] [place] [address] Dr. Caitlin Martinez Potassium [Moles/Vol] 3.5 mmol/L Normal 3.5-5.1 [facility] Comment on above: Performed By: #### C VDTBH #### [facility] [address] [place] [address] Dr. Caitlin Martinez Sodium [Moles/Vol] 139 mmol/L Normal 136-145 [facility] Comment on above: Performed By: #### C VDTBH #### [facility] [address] [place] [address] Dr. Caitlin Martinez LIPASEon 01-16-2022 Lipase [Catalytic activity/Vol] 66.0 U/L Critically low 73.0-393.0 [facility] Comment on above: Performed By: #### C BC #### [facility] [address] [place] [address] Dr. Caitlin Martinez SGOTon 01-16-2022 AST [Catalytic activity/Vol] 12 U/L Critically low 15-37 [facility] Comment on above: Performed By: #### C VDTBH #### [facility] [address] [place] [address] Dr. Caitlin Martinez SGPTon 01-16-2022 ALT [Catalytic activity/Vol] 9 U/L Critically low 14-59 [facility] Comment on above: Performed By: #### C VDTBH #### [facility] [address] [place] [address] Dr. Caitlin Martinez CBC AUTO DIFFon 01-15-2022 BASO # 0.1 103/ul Normal 0.0-0.1 [facility] Comment on above: Performed By: #### C VDTBH #### [facility] [address] [place] [address] Dr. Caitlin Martinez Basophils/100 WBC (Bld) 0.4 % Normal 0.2-2.0 [facility] Comment on above: Performed By: #### C VDTBH #### [facility] [address] [place] [address] Dr. Caitlin Martinez EO # 0.2 103/ul Normal 0.0-0.7 [facility] Comment on above: Performed By: #### C VDTBH #### [facility] [address] [place] [address] Dr. Caitlin Martinez Eosinophils/100 WBC (Bld) 1.4 % Normal 0.9-7.0 [facility] Comment on above: Performed By: #### C VDTBH #### [facility] [address] [place] [address] Dr. Caitlin Martinez Erythrocyte distribution width (RBC) [Ratio] 14.1 % Normal 11.0-15.0 [facility] Comment on above: Performed By: #### C VDTBH #### [facility] [address] [place] [address] Dr. Caitlin Martinez Hematocrit (Bld) [Volume fraction] 28.4 % Critically low 36.0-48.0 [facility] Comment on above: Performed By: #### C VDTBH #### [facility] [address] [place] [address] Dr. Caitlin Martinez Hemoglobin (Bld) [Mass/Vol] 9.0 g/dL Critically low 12.0-16.0 [facility] Comment on above: Performed By: #### C VDTBH #### [facility] [address] [place] [address] Dr. Caitlin Martinez IG # 0.18 10e3/ul Critically high 0.00-0.03 [facility] Comment on above: Performed By: #### C VDTBH #### [facility] [address] [place] [address] Dr. Caitlin Martinez IG % 1.3 % Critically high 0.0-0.5 [facility] Comment on above: Performed By: #### C VDTBH #### [facility] [address] [place] [address] Dr. Caitlin Martinez LYMPH # 2.4 103/ul Normal 1.2-3.8 [facility] Comment on above: Performed By: #### C VDTBH #### [facility] [address] [place] [address] Dr. Caitlin Martinez Lymphocytes/100 WBC (Bld) 16.8 % Critically low 20.5-60.0 [facility] Comment on above: Performed By: #### C VDTBH #### [facility] [address] [place] [address] Dr. Caitlin Martinez MANUAL DIFF REQ NO Normal [facility] Comment on above: Performed By: #### C VDTBH #### [facility] [address] [place] [address] Dr. Caitlin Martinez MCH (RBC) [Entitic mass] 27.9 pg Normal 26.7-34.0 [facility] Comment on above: Performed By: #### C VDTBH #### [facility] [address] [place] [address] Dr. Caitlin Martinez MCHC (RBC) [Mass/Vol] 31.7 g/dL Normal 29.9-35.2 [facility] Comment on above: Performed By: #### C VDTBH #### [facility] [address] [place] [address] Dr. Caitlin Martinez MCV (RBC) [Entitic vol] 87.9 fL Normal 81.0-99.0 [facility] Comment on above: Performed By: #### C VDTBH #### [facility] [address] [place] [address] Dr. Caitlin Martinez MONO # 0.9 103/ul Critically high 0.3-0.8 [facility] Comment on above: Performed By: #### C VDTBH #### [facility] [address] [place] [address] Dr. Caitlin Martinez Monocytes/100 WBC (Bld) 6.7 % Normal 1.7-12.0 [facility] Comment on above: Performed By: #### C VDTBH #### [facility] [address] [place] [address] Dr. Caitlin Martinez NEUT # 10.3 103/ul Critically high 1.4-6.5 [facility] Comment on above: Performed By: #### C VDTBH #### [facility] [address] [address] [address] Caitlin Martinez Neutrophils/100 WBC (Bld) 73.4 % Normal 43.0-75.0 [facility] Comment on above: Performed By: #### C VDTBH #### [facility] [address] [address] [address] Caitlin Martinez Platelet mean volume (Bld) [Entitic vol] 9.0 fL Critically low 9.5-13.5 [facility] Comment on above: Performed By: #### C VDTBH #### [facility] [address] [address] [address] Caitlin Martinez PLT 318 103/ul Normal 150-450 [facility] Comment on above: Performed By: #### C VDTBH #### [facility] [address] [address] [address] Caitlin Martinez RBC 3.23 106/ul Critically low 4.20-5.40 [facility] Comment on above: Performed By: #### C VDTBH #### [facility] [address] [address] [address] Caitlin Martinez WBC 14.0 103/ul Critically high 4.0-11.0 [facility] Comment on above: Performed By: #### C VDTBH #### [facility] [address] [address] [address] ABD/PELVIS WO CONon [...] DAVID BLACKMON Date: 2022-01-15 16:31 Normal [facility] CULTURE URINEon 01-15-2022 CULTURE URINE Culture Observations : LIGHT GROWTH OF MIXED GENITAL COSME. NO POTENTIAL PATHOGENS SEEN. Normal [facility] Comment on above: Performed By: #### U RCX #### [facility] [address] [place] [address] Dr. Caitlin Martinez UA (CLEAN/CATCH) VALVER/MICRO I F IND.on 01-15-2022 Bilirubin Ql (U) Negative Normal NEGATIVE [facility] Comment on above: Performed By: #### C BC #### [facility] [address] [place] [address] Dr. Caitlin Martinez Clarity (U) CLEAR Normal CLEAR [facility] Comment on above: Performed By: #### C BC #### [facility] [address] [place] [address] Dr. Caitlin Martinez Color (U) LT. YELLOW Normal YELLOW [facility] Comment on above: Performed By: #### C BC #### [facility] [address] [place] [address] Dr. Caitlin Martinez Glucose Ql (U) Negative Normal NEGATIVE [facility] Comment on above: Performed By: #### C BC #### [facility] [address] [place] [address] Dr. Caitlin Martinez Hemoglobin Ql (U) Negative Normal NEGATIVE [facility] Comment on above: Performed By: #### C BC #### [facility] [address] [place] [address] Dr. Caitlin Martinez Ketones Ql (U) Negative Normal NEGATIVE [facility] Comment on above: Performed By: #### C BC #### [facility] [address] [place] [address] Dr. Caitlin Martinez LEUKOCYTES TRACE Abnormal NEGATIVE [facility] Comment on above: Performed By: #### C BC #### [facility] [address] [place] [address] Dr. Caitlin Martinez Nitrite Ql (U) Negative Normal NEGATIVE [facility] Comment on above: Performed By: #### C BC #### [facility] [address] [place] [address] Dr. Caitlin Martinez pH (U) 7.0 [pH] Normal 5-9 [facility] Comment on above: Performed By: #### C BC #### [facility] [address] [place] [address] Dr. aCitlin Martinez SPEC GRAVITY 1.010 Normal 1.005-<=1.025 [facility] Comment on above: Performed By: #### C BC #### [facility] [address] [place] [address] Dr. Caitlin Martinez UA PROTEIN Negative Normal NEGATIVE/ TRACE [facility] Comment on above: Performed By: #### C BC #### [facility] [address] [place] [address] Dr. Caitlin Martinez UR MICRO IND INDICATED Normal [facility] Comment on above: Performed By: #### C BC #### [facility] [address] [place] [address] Dr. Caitlin Martinez Urobilinogen Qn (U) 0.2 {Barbara'U}/dL Normal 0.2 - 1. 0 [facility] Comment on above: Performed By: #### C BC #### [facility] [address] [place] [address] Dr. Caitlin Martinez URINE MICROSCOPIC ONLYon BACTERIA MODERATE Abnormal NONE SEEN [facility] Comment on above: Performed By: #### C BC #### [facility] [address] [place] [address] Dr. Caitlin Martinez Bacteria identified Cx Nom (U) INDICATED Normal [facility] Comment on above: Performed By: #### C BC #### [facility] [address] [place] [address] Dr. Caitlin Martinez CAST NONE SEEN Normal NONE SEEN [facility] Comment on above: Performed By: #### C BC #### [facility] [address] [place] [address] Dr. Caitlin Martinez Crystals LM Nom (Urine sed) NONE SEEN Normal NONE SEEN [facility] Comment on above: Performed By: #### C BC #### [facility] [address] [place] [address] Dr. Caitlin Martinez Epithelial cells LM Ql (Urine sed) MODERATE Abnormal NONE SEEN /RARE [facility] Comment on above: Performed By: #### C BC #### [facility] [address] [place] [address] Dr. Caitlin Martinez MUCOUS NONE SEEN Normal NONE SEEN [facility] Comment on above: Performed By: #### C BC #### [facility] [address] [place] [address] Dr. Caitlin Martinez RBC NONE SEEN Abnormal 0-2 [facility] Comment on above: Performed By: #### C BC #### [facility] [address] [place] [address] Dr. Caitlin Martinez WBC 2-5 Abnormal NONE SEEN [facility] Comment on above: Performed By: #### C BC #### [facility] [address] [place] [address] Dr. Caitlin Martinez US APPENDIXon 01-15-2022 US [...] DAVID BLACKMON Date: 2022-01-15 14:14 Normal [facility] US PREG GROWTHon 01-15-2022 US PREG [...] DAVID BLACKMON Date: 2022-01-15 10:59 Normal [facility] US PREG PLACENTAon 2 US PREG [...] DAVID BLACKMON Date: 2022-01-15 10:57 Normal [facility] UA (CLEAN/CATCH) VALVER/MICRO I F IND.on 12-29-2021 Bilirubin Ql (U) Negative Normal NEGATIVE [facility] Comment on above: Performed By: #### C BC #### [facility] [address] [address] [address] Caitlin Martinez Clarity (U) CLEAR Normal CLEAR [facility] Comment on above: Performed By: #### C BC #### [facility] [address] [place], [place] [address] Dr. Caitlin Martinez Color (U) LT. YELLOW Normal YELLOW [facility] Comment on above: Performed By: #### C BC #### [facility] [address] [address] [address] Caitlin Martinez Glucose Ql (U) Negative Normal NEGATIVE [facility] Comment on above: Performed By: #### C BC #### [facility] [address] [address] [address] Caitlin Martinez Hemoglobin Ql (U) Negative Normal NEGATIVE [facility] Comment on above: Performed By: #### C BC #### [facility] [address] [place] [address] Dr. Caitlin Martinez Ketones Ql (U) Negative Normal NEGATIVE [facility] Comment on above: Performed By: #### C BC #### [facility] [address] [place] [address] Dr. Caitlin Martinez LEUKOCYTES Negative Normal NEGATIVE [facility] Comment on above: Performed By: #### C BC #### [facility] [address] [place] [address] Dr. Caitlin Martinez Nitrite Ql (U) Negative Normal NEGATIVE [facility] Comment on above: Performed By: #### C BC #### [facility] [address] [place] [address] Dr. Caitlin Martinez pH (U) 6.5 [pH] Normal 5-9 [facility] Comment on above: Performed By: #### C BC #### [facility] [address] [place] [address] Dr. Caitlin Martinez SPEC GRAVITY 1.020 Normal 1.005-<=1.025 [facility] Comment on above: Performed By: #### C BC #### [facility] [address] [place] [address] Dr. Caitlin Martinez UA PROTEIN Negative Normal NEGATIVE/ TRACE [facility] Comment on above: Performed By: #### C BC #### [facility] [address] [place] [address] Dr. Caitlin Martinez UR MICRO IND NOT INDICATED Normal [facility] Comment on above: Performed By: #### C BC #### [facility] [address] [place] [address] Dr. Caitlin Martinez Urobilinogen Qn (U) 1.0 {Barbara'U}/dL Normal 0.2 - 1. 0 [facility] Comment on above: Performed By: #### C BC #### [facility] [address] [place] [address] Dr. Caitlin Martinez US PREG CERVICAL LENGTHon [...] KIRK OATES Date: 2021-12-29 15:53 Normal [facility] UA (CLEAN/CATCH) VALVER/MICRO I F IND.on 12-18-2021 Bilirubin Ql (U) Negative Normal NEGATIVE [facility] Comment on above: Performed By: #### C BC #### [facility] [address] [place] [address] Dr. Caitlin Martinez Clarity (U) CLEAR Normal CLEAR [facility] Comment on above: Performed By: #### C BC #### [facility] [address] [place] [address] Dr. Caitlin Martinez Color (U) YELLOW Normal YELLOW [facility] Comment on above: Performed By: #### C BC #### [facility] [address] [place] [address] Dr. Caitlin Martinez Glucose Ql (U) Negative Normal NEGATIVE [facility] Comment on above: Performed By: #### C BC #### [facility] [address] [place] [address] Dr. Caitlin Martinez Hemoglobin Ql (U) Negative Normal NEGATIVE [facility] Comment on above: Performed By: #### C BC #### [facility] [address] [place] [address] Dr. Caitlin Martinez Ketones Ql (U) TRACE Abnormal NEGATIVE [facility] Comment on above: Performed By: #### C BC #### [facility] [address] [place] [address] Dr. Caitlin Martinez LEUKOCYTES Negative Normal NEGATIVE [facility] Comment on above: Performed By: #### C BC #### [facility] [address] [place] [address] Dr. Caitlin Martinez Nitrite Ql (U) Negative Normal NEGATIVE [facility] Comment on above: Performed By: #### C BC #### [facility] [address] [place] [address] Dr. Caitlin Martinez pH (U) 6.0 [pH] Normal 5-9 [facility] Comment on above: Performed By: #### C BC #### [facility] [address] [place] [address] Dr. Caitlin Martinez SPEC GRAVITY 1.025 Normal 1.005-<=1.025 [facility] Comment on above: Performed By: #### C BC #### [facility] [address] [place] [address] Dr. Caitlin Martinez UA PROTEIN Negative Normal NEGATIVE/ TRACE [facility] Comment on above: Performed By: #### C BC #### [facility] [address] [place] [address] Dr. Caitlin Martinez UR MICRO IND NOT INDICATED Normal [facility] Comment on above: Performed By: #### C BC #### [facility] [address] [place] [address] Dr. Caitlin Martinez Urobilinogen Qn (U) 4 {Barbara'U}/dL Abnormal 0.2 - 1.0 [facility] Comment on above: Performed By: #### C BC #### [facility] [address] [place] [address] Dr. Caitlin Martinez RHOGAMon 11-28-2021 RHOGAM Status Information Issued Quantity 1 Product ID Rh Immune Globulin Lot Number [id number] Issue Date/Time [id number] Normal [facility] Comment on above: Performed By: #### I HORACIO #### [facility] [address] [place] [address] Dr. Caitlin Martinez TYPE AND SCREENon 11-27-2021 TYPE AND SCREEN Negative Normal [facility] Comment on above: Performed By: #### T NS #### [facility] [address] [place] [address] Dr. Caitlin Martinez CULTURE URINEon 11-23-2021 CULTURE URINE Culture Observations : No growth Normal [facility] Comment on above: Performed By: #### I HORACIO #### [facility] [address] [place] [address] Dr. Caitlin Martinez UA (CLEAN/CATCH) VALVER/MICRO I F IND.on 11-23-2021 Bilirubin Ql (U) Negative Normal NEGATIVE [facility] Comment on above: Performed By: #### U RCX #### [facility] [address] [place] [address] Dr. Caitlin Martinez Clarity (U) CLEAR Normal CLEAR [facility] Comment on above: Performed By: #### U RCX #### [facility] [address] [place] [address] Dr. Caitlin Martinez Color (U) LT. YELLOW Normal YELLOW [facility] Comment on above: Performed By: #### U RCX #### [facility] [address] [place] [address] Dr. Caitlin Martinez Glucose Ql (U) Negative Normal NEGATIVE [facility] Comment on above: Performed By: #### U RCX #### [facility] [address] [place] [address] Dr. Caitlin Martinez Hemoglobin Ql (U) Negative Normal NEGATIVE [facility] Comment on above: Performed By: #### U RCX #### [facility] [address] [place] [address] Dr. Caitlin Martinez Ketones Ql (U) Negative Normal NEGATIVE [facility] Comment on above: Performed By: #### U RCX #### [facility] [address] [place] [address] Dr. Caitlin Martinez LEUKOCYTES SMALL Abnormal NEGATIVE [facility] Comment on above: Performed By: #### U RCX #### [facility] [address] [place] [address] Dr. Caitlin Martinez Nitrite Ql (U) Negative Normal NEGATIVE [facility] Comment on above: Performed By: #### U RCX #### [facility] [address] [address] [address] Caitlin Martinez pH (U) 6.5 [pH] Normal 5-9 [facility] Comment on above: Performed By: #### U RCX #### [facility] [address] [place] [address] Dr. Caitlin Martinez SPEC GRAVITY 1.010 Normal 1.005-<=1.025 [facility] Comment on above: Performed By: #### U RCX #### [facility] [address] [place] [address] Dr. Caitlin Martinez UA PROTEIN Negative Normal NEGATIVE/ TRACE [facility] Comment on above: Performed By: #### U RCX #### [facility] [address] [place] [address] Dr. Caitlin Martinez UR MICRO IND INDICATED Normal [facility] Comment on above: Performed By: #### U RCX #### [facility] [address] [place] [address] Dr. Caitlin Martinez Urobilinogen Qn (U) 0.2 {Barbara'U}/dL Normal 0.2 - 1. 0 [facility] Comment on above: Performed By: #### U RCX #### [facility] [address] [place] [address] Dr. Caitlin Martinez URINE MICROSCOPIC ONLYon BACTERIA TRACE Abnormal NONE SEEN [facility] Comment on above: Performed By: #### U RCX #### [facility] [address] [place] [address] Dr. Caitlin Martinez Bacteria identified Cx Nom (U) INDICATED Normal [facility] Comment on above: Performed By: #### U RCX #### [facility] [address] [place] [address] Dr. Caitlin Martinez CAST SEEN Abnormal NONE SEEN [facility] Comment on above: Performed By: #### U RCX #### [facility] [address] [place] [address] Dr. Caitlin Martinez Crystals LM Nom (Urine sed) SEEN Abnormal NONE SEEN [facility] Comment on above: Performed By: #### U RCX #### [facility] [address] [place] [address] Dr. Caitlin Martinez Epithelial cells LM Ql (Urine sed) RARE Normal NONE SEEN /RARE [facility] Comment on above: Performed By: #### U RCX #### [facility] [address] [place] [address] Dr. Caitlin Martinez MUCOUS TRACE Abnormal NONE SEEN [facility] Comment on above: Performed By: #### U RCX #### [facility] [address] [place] [address] Dr. Caitlin Martinez RBC 0-2 Normal 0-2 [facility] Comment on above: Performed By: #### U RCX #### [facility] [address] [place] [address] Dr. Caitlin Martinez WBC 2-5 Abnormal NONE SEEN [facility] Comment on above: Performed By: #### U RCX #### [facility] [address] [place] [address] Dr. Caitlin Martinez GLUCOSE - 1HRon 11-06-2021 Glucose [Mass/Vol] 131 mg/dL Critically high 74-106 [facility] Comment on above: Performed By: #### I HORACIO #### [facility] [address] [place] [address] Dr. Caitlin Martinez HEMOGRAM AND PLATELon 2021 Hematocrit (Bld) [Volume fraction] 34.2 % Critically low 36.0-48.0 [facility] Comment on above: Performed By: #### C BC #### [facility] [address] [place] [address] Dr. Caitlin Martinez Hemoglobin (Bld) [Mass/Vol] 11.3 g/dL Critically low 12.0-16.0 [facility] Comment on above: Performed By: #### C BC #### [facility] [address] [place] [address] Dr. Caitlin Martinez MCH (RBC) [Entitic mass] 31.7 pg Normal 26.7-34.0 [facility] Comment on above: Performed By: #### C BC #### [facility] [address] [place] [address] Dr. Caitlin Martinez MCHC (RBC) [Mass/Vol] 33.0 g/dL Normal 29.9-35.2 [facility] Comment on above: Performed By: #### C BC #### [facility] [address] [place] [address] Dr. Caitlin Martinez MCV (RBC) [Entitic vol] 96.1 fL Normal 81.0-99.0 [facility] Comment on above: Performed By: #### C BC #### [facility] [address] [place] [address] Dr. Caitlin Martinez PLT 372 103/ul Normal 150-450 [facility] Comment on above: Performed By: #### C BC #### [facility] [address] [place] [address] Dr. Caitlin Martinez RBC 3.56 106/ul Critically low 4.20-5.40 [facility] Comment on above: Performed By: #### C BC #### [facility] [address] [place] [address] Dr. Caitlin Martinez WBC 10.1 103/ul Normal 4.0-11.0 [facility] Comment on above: Performed By: #### C BC #### [facility] [address] [place] [address] Dr. Caitlin Martinez CHLAMYDIA/GONOCOCCUS JONATAN ( AB/URINE/PAPon 10-31-2021 Chlamydia trachomatis, JONATAN Negative Normal Negative [facility] Comment on above: Performed By: #### C BC #### [facility] [address] [place] [address] Dr. Caitlin Martinez Neisseria gonorrhoeae, JONATAN Negative Normal Negative [facility] Comment on above: Performed By: #### C BC #### [facility] [address] [place] [address] Dr. Caitlin Martinez VAGINITIS/VAGINOSIS DNA PROB Paramjit 10-29-2021 Selena species Negative Normal Negative [facility] Comment on above: Performed By: #### U RCX #### [facility] [address] [place] [address] Dr. Caitlin Martinez Gardnerella vaginalis Negative Normal Negative [facility] Comment on above: Performed By: #### U RCX #### [facility] [address] [place] [address] Dr. Caitlin Martinez Trichomonas vaginalis Negative Normal Negative [facility] Comment on above: Performed By: #### U RCX #### [facility] [address] [place] [address] Dr. Caitlin Martinez US PREG INCOMPLETE ANATOMYon [...] DAVID BLACKMON Date: 2021-10-26 12:05 Normal [facility] CBC W MANUAL DIFFon 10-25-19 22 ATYPICAL LYMPH # Normal [facility] Comment on above: Performed By: #### U RCX #### [facility] [address] [place] [address] Dr. Caitlin Martinez ATYPICAL LYMPH % Normal [facility] Comment on above: Performed By: #### U RCX #### [facility] [address] [place] [address] Dr. Caitlin Martinez BAND # 0.1 103/ul Normal 0.0-0.3 [facility] Comment on above: Performed By: #### U RCX #### [facility] [address] [place] [address] Dr. Caitlin Martinez BAND % 1 % Normal 0-5 [facility] Comment on above: Performed By: #### U RCX #### [facility] [address] [place] [address] Dr. Caitlin Martinez BASOM # 0.00 103/ul Normal 0.00-0.10 [facility] Comment on above: Performed By: #### U RCX #### [facility] [address] [address] [address] Caitlin Martinez BASOM % 0.0 % Critically low 0.2-2.0 [facility] Comment on above: Performed By: #### U RCX #### [facility] [address] [address] [address] Caitlin Martinez BLAST # Normal [facility] Comment on above: Performed By: #### U RCX #### [facility] [address] [address] [address] Caitlin Martinez BLAST % Normal [facility] Comment on above: Performed By: #### U RCX #### [facility] [address] [place] [address] Dr. Caitlin Martinez CORRECTED WBC Normal 4.0-11.0 [facility] Comment on above: Performed By: #### U RCX #### [facility] [address] [place] [address] Dr. Caitlin Martinez EOS # 0.12 103/ul Normal 0.00-0.70 [facility] Comment on above: Performed By: #### U RCX #### [facility] [address] [place] [address] Dr. Caitlin Martinez EOS% 1.0 % Normal 0.9-7.0 [facility] Comment on above: Performed By: #### U RCX #### [facility] [address] [place] [address] Dr. Caitlin Martinez HCT 31.5 % Critically low 36.0-48.0 [facility] Comment on above: Performed By: #### U RCX #### [facility] [address] [place] [address] Dr. Caitlin Martinez HGB 10.5 g/dl Critically low 12.0-16.0 [facility] Comment on above: Performed By: #### U RCX #### [facility] [address] [place] [address] Dr. Caitlin Martinez LYMPHM # 0.37 103/ul Critically low 1.20-3.80 [facility] Comment on above: Performed By: #### U RCX #### [facility] [address] [place] [address] Dr. Caitlin Martinez LYMPHM% 3.0 % Critically low 20.5-60.0 [facility] Comment on above: Performed By: #### U RCX #### [facility] [address] [place] [address] Dr. Caitlin Martinez MCH 31.8 pg Normal 26.7-34.0 [facility] Comment on above: Performed By: #### U RCX #### [facility] [address] [place] [address] Dr. Caitlin Martinez MCHC 33.3 g/dl Normal 29.9-35.2 [facility] Comment on above: Performed By: #### U RCX #### [facility] [address] [place] [address] Dr. Caitlin Martinez MCV 95.5 fL Normal 81.0-99.0 [facility] Comment on above: Performed By: #### U RCX #### [facility] [address] [place] [address] Dr. Caitlin Martinez METAMYELOCYTE # Normal [facility] Comment on above: Performed By: #### U RCX #### [facility] [address] [place] [address] Dr. Caitlin Martinez METAMYELOCYTE % Normal [facility] Comment on above: Performed By: #### U RCX #### [facility] [address] [place] [address] Dr. Caitlin Martinez MONOM# 0.73 103/ul Normal 0.30-0.80 [facility] Comment on above: Performed By: #### U RCX #### [facility] [address] [place] [address] Dr. Caitlin Martinez MONOM% 6.0 % Normal 1.7-12.0 [facility] Comment on above: Performed By: #### U RCX #### [facility] [address] [place], [place] [id number] Dr. Caitlin Martinez MPV 9.5 fL Normal 9.5-13.5 [facility] Comment on above: Performed By: #### U RCX #### [facility] [address] [place] [address] Dr. Caitlin Martinez MYELOCYTE # Normal [facility] Comment on above: Performed By: #### U RCX #### [facility] [address] [place] [address] Dr. Caitlin Martinez MYELOCYTE % Normal [facility] Comment on above: Performed By: #### U RCX #### [facility] [address] [place] [address] Dr. Caitlin Martinez NRBC Normal [facility] Comment on above: Performed By: #### U RCX #### [facility] [address] [place] [address] Dr. Caitlin Martinez PLT 275 103/ul Normal 150-450 [facility] Comment on above: Performed By: #### U RCX #### [facility] [address] [place] [address] Dr. Caitlin Martinez RBC 3.30 106/ul Critically low 4.20-5.40 [facility] Comment on above: Performed By: #### U RCX #### [facility] [address] [place] [address] Dr. Caitlin Martinez RDW 13.6 % Normal 11.0-15.0 [facility] Comment on above: Performed By: #### U RCX #### [facility] [address] [place] [address] Dr. Caitlin Martinez SEG # 10.86 103/ul Critically high 1.40-6.50 [facility] Comment on above: Performed By: #### U RCX #### [facility] [address] [place] [address] Dr. Caitlin Martinez SEG % 89.0 % Critically high 43.0-75.0 [facility] Comment on above: Performed By: #### U RCX #### [facility] [address] [place] [address] Dr. Caitlin Martinez WBC 12.2 103/ul Critically high 4.0-11.0 [facility] Comment on above: Performed By: #### U RCX #### [facility] [address] [place] [address] Dr. Caitlin Martinez ER URINE PROFILEon 2 Bilirubin Ql (U) Negative Normal NEGATIVE [facility] Comment on above: Performed By: #### C VDTBH #### [facility] [address] [address] [address] Caitlin Martinez Clarity (U) SL CLOUDY Abnormal CLEAR [facility] Comment on above: Performed By: #### C VDTBH #### [facility] [address] [place] [address] Dr. Caitlin Martinez Color (U) YELLOW Normal YELLOW [facility] Comment on above: Performed By: #### C VDTBH #### [facility] [address] [place] [address] Dr. Caitlin PRICE A micrscopic examination will be performed if indicated. Normal [facility] Comment on above: Performed By: #### C VDTBH #### [facility] [address] [place] [address] Dr. Caitlin Martinez Glucose Ql (U) Negative Normal NEGATIVE [facility] Comment on above: Performed By: #### C VDTBH #### [facility] [address] [place] [address] Dr. Caitlin Martinez Hemoglobin Ql (U) Negative Normal NEGATIVE [facility] Comment on above: Performed By: #### C VDTBH #### [facility] [address] [place] [address] Dr. Caitiln Martinez Ketones Ql (U) >=80 Abnormal NEGATIVE [facility] Comment on above: Performed By: #### C VDTBH #### [facility] [address] [place] [address] Dr. Caitlin Martinez LEUKOCYTES Negative Normal NEGATIVE [facility] Comment on above: Performed By: #### C VDTBH #### [facility] [address] [place] [address] Dr. Caitlin Martinez Nitrite Ql (U) Negative Normal NEGATIVE [facility] Comment on above: Performed By: #### C VDTBH #### [facility] [address] [place] [address] Dr. Caitlin Martinez pH (U) 6.0 [pH] Normal 5-9 [facility] Comment on above: Performed By: #### C VDTBH #### [facility] [address] [place] [address] Dr. Caitlin Martinez SPEC GRAVITY 1.020 Normal 1.005-<=1.025 [facility] Comment on above: Performed By: #### C VDTBH #### [facility] [address] [place] [address] Dr. Caitlin Martinez UA PROTEIN Negative Normal NEGATIVE/ TRACE [facility] Comment on above: Performed By: #### C VDTBH #### [facility] [address] [place] [address] Dr. Caitlin Martinez UR MICRO IND NOT INDICATED Normal [facility] Comment on above: Performed By: #### C VDTBH #### [facility] [address] [place] [address] Dr. Caitlin Martinez Urobilinogen Qn (U) 1.0 {Barbara'U}/dL Normal 0.2 - 1. 0 [facility] Comment on above: Performed By: #### C VDTBH #### [facility] [address] [place] [address] Dr. Caitlin Martinez INFLUENZA A AND B AGon 10-24 INFLUBNEG SEE BELOW Normal [facility] Comment on above: Result Comment: Nega tive for Flu B protein antigen. Infection due to Flu B cannot be ruled out. Flu B antigen in the sample may be below the detection limit of the test. Performed By: #### C VDTBH #### [facility] [address] [place] [address] Dr. Caitlin Martinez INFLUENZA A AG Positive Abnormal NEGATIVE SEE COMMENT [facility] Comment on above: Performed By: #### C VDTBH #### [facility] [address] [address] [address] Caitlin Martinez INFLUENZA B AG Negative Normal NEGATIVE SEE COMMENT [facility] Comment on above: Performed By: #### C VDTBH #### [facility] [address] [place] [address] Dr. Caitlin Martinez INFLUPOSH SEE BELOW Normal [facility] Comment on above: Result Comment: NOTE : Live attenuated influenzae vaccine viruses can cause a positive result for a rapid influenza diagnostic test if administered up to 7 days prior to rapid testing. Performed By: #### C VDTBH #### [facility] [address] [place] [address] Dr. Caitlin Martinez INTERNAL CONTROLS Within Normal Limits Normal Wi thin Normal Limits [facility] Comment on above: Performed By: #### C VDTBH #### [facility] [address] [place] [address] Dr. Caitlin Martinez PROF CHEM 8 (BAS METB)on Anion gap [Moles/Vol] 14.4 mmol/L Normal [facility] Comment on above: Performed By: #### D IRCMB, ABID #### [facility] [address] [place] [address] Dr. Caitlin Martinez Calcium [Mass/Vol] 8.4 mg/dL Critically low 8.5-10.1 [facility] Comment on above: Performed By: #### D IRCMB, ABID #### [facility] [address] [place] [address] Dr. Caitlin Martinez Chloride [Moles/Vol] 101 mmol/L Normal 98-107 [facility] Comment on above: Performed By: #### D IRCMB, ABID #### [facility] [address] [place] [address] Dr. Caitlin Martinez CO2 [Moles/Vol] 19.7 mmol/L Critically low 21.0-32.0 [facility] Comment on above: Performed By: #### D IRCMB, ABID #### [facility] [address] [place] [address] Dr. Caitlin Martinez Creatinine [Mass/Vol] 0.55 mg/dL Normal 0.55-1.02 [facility] Comment on above: Performed By: #### D IRCMB, ABID #### [facility] [address] [place] [address] Dr. Caitlin Martinez EGFR-AF MALDIVIAN >60 Normal >=60 [facility] Comment on above: Performed By: #### D IRCMB, ABID #### [facility] [address] [place] [address] Dr. Caitlin Martinez EGFR-NON AF MALDIVIAN >60 Normal >=60 [facility] Comment on above: Performed By: #### D IRCMB, ABID #### [facility] [address] [place] [address] Dr. Caitlin Martinez Glucose [Mass/Vol] 91 mg/dL Normal 74-106 [facility] Comment on above: Performed By: #### D IRCMB, ABID #### [facility] [address] [place] [address] Dr. Caitlin Martinez Potassium [Moles/Vol] 3.1 mmol/L Critically low 3.5-5.1 [facility] Comment on above: Performed By: #### D IRCMB, ABID #### [facility] [address] [place] [address] Dr. Caitlin Martinez Sodium [Moles/Vol] 132 mmol/L Critically low 136-145 [facility] Comment on above: Performed By: #### D IRCMB, ABID #### [facility] [address] [place] [address] Dr. Caitlin Martinez Urea nitrogen [Mass/Vol] 7.0 mg/dL Normal 7.0-18.0 [facility] Comment on above: Performed By: #### D IRCMB, ABID #### [facility] [address] [place] [address] Dr. Caitlin Martinez Urea nitrogen/Creatinine [Mass ratio] 12.7 mg/mg Normal [facility] Comment on above: Performed By: #### D IRCMB, ABID #### [facility] [address] [place] [address] Dr. Caitlin Martinez US PREG ANATOMY SINGLEon [...] BLACKMON Date: 2021-09-28 09:17 Normal [facility] CHEMISTRYOrdered By: SYSTEM SYSTEM on 06-21-2021 [place] [address] m[IU]/mL High 1 - 3 mIU/mL [facility] Remisol XR LUMBAR SPINE 2-3 VIEWS (S [...] gas pattern is nonobstructive. There is a wynmnoky-mr-lidwl amount of stool burden. IMPRESSION: No malalignment. No acute compression deformity. Vpfuhiwz-pa-xxwyi amount of stool burden. [employer] Workstation ID: [id number] Dictated by: LUBA GARCÍA on [facility] Mar 05, 2020 4:09:51 PM EDT Transcribed by: KELVIN GUADALUPE on [facility] Mar 05, 2020 4:17:18 PM EDT Finalized by: LUBA GARCÍA on [facility] Mar 05, 2020 7:52:11 PM EDT [facility] Comment on above: Order Comment: Injur y/Trauma or Illness?:Illness/Other How long have you had these symptoms (acute/chronic)?:Chronic Reason for exam?:low back pain History of cancer?:n Surgeries, chemotherapy, or radiation?:n Type of Exam?:Initial Additional signs and symptoms?:fibromyalgia XR Lumbar Spine 2-3 Views (S tandard)on 03-05-2020 No malalignment. No acute compression deformity. Zxcoexys-du-qwvcg amount of stool burden. [employer] Workstation ID: [id number] [facility] EXAMINATION: XR LUMBAR SPINE 2-3 VIEWS [...] gas pattern is nonobstructive. There is a hsgzxhdg-bl-vkuet amount of stool burden. [facility] Interface, Rad In [place] Speechq - 03/05/2020 [...] gas pattern is nonobstructive. There is a ycuxyqxj-mi-njzqb amount of stool burden. IMPRESSION: No malalignment. No acute compression deformity. Qwbgtbbc-km-fwfia amount of stool burden. [employer] Workstation ID: [id number] [facility] CNOVon 10-28-2018 CNOV Office Visit (LOUN ) SANDY GODINEZ ([id number]) 1995 F Date Time Provider Department 10/28/18 [...] Farrah Garcia MD [address] [place] [address] Consult requested for an opinion regarding the [...] TIME: 12:44 PM Referring Provider: FARRAH GARCIA [[id number]] Allergies As of Date: 10/28/2018 (No Known [...] by WARREN RODRIGUEZ MD on 10/29/18 Normal [facility] PROGRESSon 10-28-2018 Protein mass conc HNO ID: [id number] Author: Warren Rodriguez Service: ? Author Type: Physician Type: Progress Notes Filed: 10/29/2018 3:03 PM Note Text: VASCULAR SURGERY INITIAL CONSULT SERVICE DATE: 10/28/2018 SERVICE TIME: 12:44 PM PRIMARY CARE PHYSICIAN: Farrah Garcia MD REFERRING PROVIDER: Farrah Garcia MD [address] [place] [address] Consult requested for an opinion regarding the [...] October 28, 2018 TIME: 12:44 PM Normal [facility] Vital Signs Date Time Vital Sign Value Performing Clinician Chiquis zaragoza 07-19-2023 09:31-0500 Body mass index (BMI) [Ratio] 26.79 kg/m2 [facility] 07-19-2023 09:31-0500 Body weight 73.03 kg [facility] 07-19-2023 09:31-0500 Diastolic blood pressure 72 mm[Hg] [facility] 07-19-2023 09:31-0500 Systolic blood pressure 118 mm[Hg] [facility] Nurse [facility] Encounters Encounter Date Encounter Type Care Provider Facility Start: 12-05-2023 End: 12-05-2023 ambulatory JOSE MIGUEL JUSTEN Not Available Start: 11-25-2023 End: 11-25-2023 ambulatory JOSE MIGUEL JUSTEN Not Available Start: 11-12-2023 End: 11-12-2023 ambulatory JOSE MIGUEL JUSTEN Not Available Start: 11-07-2023 End: 11-08-2023 ambulatory JOSE MIGUEL Laura CAMPUZANO [facility] Start: 10-15-2023 End: 10-15-2023 ambulatory JOSE MIGUEL [...] Not Available Start: 07-08-2023 ambulatory Royer Layne acility:[facility] Start: 07-02-2023 End: 07-02-2023 ambulatory JOSE [...] Facility:[facility] Start: 10-24-2021 End: 10-24-[address] LROENZANA MISC Facility:[facility] Start: 09-28-2021 End: 09-29-[address] JOSE MIGUEL CAMPUZANO Facility:[facility] Start: 09-16-2021 End: 09-16-2021 ambulatory ILIR JUAREZ Facility:[facility] Start: 06-21-2021 End: 09-19-2021 Recurring Jose Miguel CAMPUZANO [facility] Start: 03-05-2020 End: 03-06-2020 Patient encounter procedure [facility] Start: 03-05-2020 End: 03-05-2020 Subsequent hospital visit by physician [facility] Work Phone: [facility] Comment on above: Chronic low back [...] encounter procedure 08/19/2023 11:10 AM EST Routine [facility] B[facility] OB [address] [id number] Jose Miguel Campuzano, DO [address] [place] [address] [facility] OB Start: 07-19-2023 End: 07-19-2024 ABO/Rh ABO/Rh Lab Routine Missed menses Expected: 07/19/2023 (Approximate), Expires: 07/19/2024 [facility] Comment on above: Expected: 07/19/2023 (Approximate), Expires: 07/19/2024 Start: 07-19-2023 End: 07-19-2024 Blood type and Indirect antibody screen panel - Blood Type and screen Lab Routine Missed menses Expected: 07/19/2023 (Approximate), Expires: 07/19/2024 [facility] Work Phone: Comment on above: Expected: 07/19/2023 (Approximate), Expires: 07/19/2024 Start: 07-19-2023 End: 07-19-2024 US Pelvis transvaginal US OB transvaginal Imaging Routine Missed menses Expected: 07/19/2023 (Approximate), Expires: 07/19/2024 [facility] Comment on above: Expected: 07/19/2023 (Approximate), Expires: 07/19/2024 Start: 02-16-2020 Influenza vaccinatio n given Sequential Influenza Vaccine (#1) [facility] Start: 2014 Hepatitis C antibody , confirmatory test Hepatitis C Screening [facility] Start: 08-31-2011 HIV screening HIV Screening [facility] Start: 08-31-2007 Vaccination for [place] papillomavirus HPV Vaccines (1 - 2-dose series) [facility] Start: 08-31-1999 History and physical examination, annual for health maintenance Wellness Visit [facility] Start: 1996 Screening for Chlamy tristan trachomatis Chlamydia Screening [facility] Start: 1996 Screening for malign ant neoplasm of cervix Pap Smear [facility] Start: 1996 Tetanus vaccination Tetanus: Every 1 0yrs [facility] Bacteria identified in Urine by Culture Urine culture Microbiology Routine Missed menses Ordered: 07/19/2023 [facility] Comment on above: Ordered: 07/19/2023 CBC W Auto Different ial panel - Blood CBC and differential Lab Routine Missed menses Ordered: 07/19/2023 [facility] Comment on above: Ordered: 07/19/2023 Hemoglobin A1c measurement Hemoglobin A1c Lab Routine Missed menses Ordered: 07/19/2023 [facility] Comment on above: Ordered: 07/19/2023 Hepatitis B virus knight rface Ag [Presence] in Serum or Plasma by Immunoassay Hepatitis B surface antigen Lab Routine Missed menses Ordered: 07/19/2023 [facility] Comment on above: Ordered: 07/19/2023 Hepatitis C virus Ab [Presence] in Serum or Plasma by Immunoassay Hepatitis C antibody Lab Routine Missed menses Ordered: 07/19/2023 [facility] Comment on above: Ordered: 07/19/2023 HIV-1/HIV-2 antigen/antibody combination immunoassay HIV-1 and HIV-2 antibodies Lab Routine Missed menses Ordered: 07/19/2023 [facility] Comment on above: Ordered: 07/19/2023 Reagin Ab [Presence] in Serum by RPR RPR Lab Routine Missed menses Ordered: 07/19/2023 [facility] Comment on above: Ordered: 07/19/2023 Rubella antibody, IgG Rubella an tibody, IgG Lab Routine Missed menses Ordered: 07/19/2023 [facility] Comment on above: Ordered: 07/19/2023 Payers Date Payer Category Payer Self-pay 2022 Medicaid [employer] [place] [id number] 2022-Present [address] [place] [address] [id number] 1995 Unknown [id number] 2.16.840.1.739996.3.579.2.903 1995 Unknown [id number] 2.16.840.1.173285.3.579.2.593 1996 Unknown [id number] 2.16.840.1.525175.3.579.2.593 1996 Unknown [id number] 2.16.840.1.274941.3.579.2.593 1996 Unknown [id number] 2.16.840.1.317870.3.579.2.593 1996 Unknown [id number] 2.16.840.1.132571.3.579.2.593 1996 Unknown [id number] 2.16.840.1.650282.3.579.2.593 1996 Unknown [id number] 2.16.840.1.838714.3.579.2.593 1996 Unknown [id number] 2.16.840.1.218883.3.579.2.593 1996 Unknown [id number] 2.16.840.1.191595.3.579.2.593 1996 Unknown [id number] 2.16.840.1.016353.3.579.2.593 1996 Unknown [id number] 2.16.840.1.896749.3.579.2.593 1996 Unknown [id number] 2.16.840.1.392313.3.579.2.593 1996 Unknown [id number] 2.16.840.1.916429.3.579.2.593 1996 Unknown [id number] 2.16.840.1.474429.3.579.2.593 1996 Unknown [id number] 2.16.840.1.157093.3.579.2.593 1996 Unknown [id number] 2.16.840.1.449483.3.579.2.593 1996 Unknown [id number] 2.16.840.1.860914.3.579.2.593 1996 Unknown [id number] 2.16.840.1.106273.3.579.2.593 1996 Unknown [id number] 2.16.840.1.741583.3.579.2.593 1996 Unknown [id number] 2.16.840.1.679425.3.579.2.593 1996 Unknown [id number] 2.16.840.1.202717.3.579.2.593 1996 Unknown [id number] 2.16.840.1.246717.3.579.2.1286 1996 Unknown [id number] 2.16.840.1.373514.3.579.2.1286 1996 Unknown [id number] 2.16.840.1.813582.3.579.2.1259 1996 Unknown [id number] 2.16.840.1.421870.3.579.2.1259 1996 Unknown [id number] 2.16.840.1.072296.3.579.2.1259 1996 Unknown [id number] 2.16.840.1.850373.3.579.2.1259 1996 Unknown [id number] 2.16.840.1.379412.3.579.2.1259 1996 Unknown [id number] 2.16.840.1.025133.3.579.2.1259 1996 Unknown [id number] 2.16.840.1.824373.3.579.2.1259 1996 Unknown [id number] 2.16.840.1.677415.3.579.2.1259 1959 Unknown [id number] 1959 Unknown [id number] Unknown COMMERCIAL COMME RCIAL MISCELLANEOUS [id number] Effective for all dates [id number] 1.2.840.847012.1.13.385.2.7.3. [id number] Unknown [id number] Unknown [id number] 2.16.840.1.018903.3.579.2.531 Social History Date Type Detail Facility Tobacco smoking stat [facility] Unknown if ever smoked [facility] Sex Assigned At Not on file [facility] Start: 12-07-2022 Sex Assigned At Female [facility] Start: 12-07-2022 Tobacco smoking status NHIS Never smoked tobacco [facility] Start: 07-19-2023 Alcohol intake Current drinker of alcohol (finding) [facility] Start: 12-07-2022 History of Social function [facility] Start: 12-07-2022 Alcohol Comment 1-2 drinks less than monthly in the past year [facility] Start: 05-31-2023 [facility] Start: 1995 Sex Assigned At Female [facility] Start: 11-29-2022 Gender identity Identifies as female gender (finding) [facility] Start: 11-29-2022 Sexual orientation Heterosexual (finding) [facility] History of Present illness [...] Procedure Laterality Date DILATION AND CURETTAGE 2018 [place] TONSILLECTOMY & ADENOIDECTOMY AGE 13/> 2015 WISDOM [...] sent for nausea to pharmacy. Pt desires [place] 22 and understands to have it done at 10 weeks along w/her labs. Follow Up: Patient is to have labs drawn at directed and return to office for initial OB appointment with provider. Patient may call office as needed with any concerns or questions. Nurse Visit Completed by: Cori Daniel MA documented in this encounter [facility] Clinical Note 01-16-2022 Note Date & [...] by: Cecelia FOOTE Date: 2022-01-16 21:33 [facility] Clinical Note 01-16-2022 Note Date & [...] authenticated by: Cecelia FOOTE Date: 2022-01-16 21:33 [facility] Clinical Note 01-15-2022 Note Date & Type [...] by: IGOR DIAZ Date: 2022-01-15 10:10 [facility] Evaluation + Plan note Note Date & Type Note Facility Evaluation + Plan note No data available for this section [facility] Evaluation note Note Date & Type Note Facility Evaluation note Diagnosis Missed menses Nausea Nausea alone documented in this encounter [facility] Hospital Discharge instructions Note Date & Type Note Facility Hospital Discharge instructions No data available for this section [facility] Summary Purpose Family History No Family History Records FoundNo Family History Records FoundNo Family History Records FoundNo Family History Records FoundNo Family History Records FoundNo Family History Records FoundNo Family History Records Found Advance Directives No Advanced Directives Records FoundDocuments on File Type Date Recorded 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 Advance Directives and Livin g Will 03/05/2020 2:18 PM Assessments Diagnosis Chronic low back pain, unspecified back pain laterality, unspecified whether sciatica present Additional Source Comments INFORMATION SOURCE (unrecogn ized section and content) DATE CREATED AUTHOR 11/08/2018 [facility] DATE CREATED AUTHOR AUTHOR'S ORGANIZ ATION 03/21/2020 [facility] DATE CREATED AUTHOR AUTHOR'S ORGANIZ ATION 08/04/2022 [facility] DATE CREATED AUTHOR AUTHOR'S ORGANIZ ATION 09/06/2022 [facility] DATE CREATED AUTHOR AUTHOR'S ORGANIZ ATION 09/17/2023 [facility] DATE CREATED AUTHOR AUTHOR'S ORGANIZ ATION 11/09/2023 [facility] DATE CREATED AUTHOR AUTHOR'S ORGANIZ ATION 12/06/2023 [facility] EPIC Reason for Visit [...] BE BASED ON THE PRIMARY CLINICAL RECORDS. [employer] provides no warranty or guarantee of the accuracy or completeness of information in this document.
[2023-12-17 22:53] VITALS: BP 123/64; PULSE 90
[2023-12-17 22:58] LABS: Bilirubin Urine NEGATIVE (NEGATIVE); Blood Urine NEGATIVE (NEGATIVE); Clarity Urine CLEAR (CLEAR); Color Urine LT. YELLOW (YELLOW); Glucose Urine UA NEGATIVE (NEGATIVE); Ketones Urine NEGATIVE (NEGATIVE); Leukocyte Esterase Urine TRACE (NEGATIVE); Nitrite Urine NEGATIVE (NEGATIVE); Protein Urine NEGATIVE (NEG/TRACE); pH Urine 7.5 (5.0-9.0)
[2023-12-17 22:59] LABS: Urine Microscopic Indicated YES
[2023-12-17 23:04] LABS: Bacteria Urine TRACE #/HPF (NONE SEEN); Mucus Urine NONE SEEN (NONE SEEN); RBC Urine NONE SEEN #/HPF (0-2); WBC Urine 0-2 #/HPF (NONE SEEN)
[2023-12-17 23:05] LABS: Amorphous Sediment Urine MANY; Cast Seen? NONE SEEN #/LPF (NONE SEEN); Crystals Seen? None Seen #/HPF (None Seen); Squamous Epithelial Cell Urine MODERATE #/LPF (NONE/RARE); Urine Culture Indicated NO
[2023-12-18 00:16] VITALS: BP 123/64
[2023-12-18] MEDS: NIFEdipine 10 MG CAPSULE 20 MG PO (00:16)
[2023-12-18] MEDS: 0.9 % SODIUM CHLORIDE 1,000 ML 999 ML IV (00:19)
== END 2023-12-18 01:40 | disposition home or self-care (01) ==
PROVIDERS: Admitting Provider Obstetrics & Gynecology; PCP Nurse Practitioner Family; Visit Provider Obstetrics & Gynecology
DX: O47.03 False labor before 37 completed weeks of gestation, third trimester (principal); Z3A.30 30 weeks gestation of pregnancy
CPT/HCPCS: 59025; 81001; G0378; G0379

== ENCOUNTER 2023-12-24 11:54 | Outpatient (OUT) | payer OTHER, SELFPAY ==
--- NOTE | 2023-12-24 11:57 | US_ITS ---
[address] [address] Patient Name: SANDY GODINEZ MRN: [id number] date: 1995 Sex: F Assigned Patient Location: US Current Patient Location: Accession/Order Number: [id number] Exam Date: 12/24/2023 12:00 Report Date: 12/24/2023 12:20 At the request of: JOSE MIGUEL BOATENG Procedure: US OB cervical length EXAMINATION: US OB cervical length HISTORY: Pelvic Pain In COMPARISON: 12/05/2023 FINDINGS: position: Cephalic presentation, longitudinal lie Amniotic fluid volume: Subjectively normal Heart rate 155 beats minute Cervix: 3.6 cm in length, closed Clinical age: 31 weeks 4 days Clinical NOVA: 02/21/2024 US/US OB cervical length IMPRESSION: Closed cervix measuring 3.6 cm in length Electronically authenticated by: KIRK OATES Date: 12/24/2023 12:20
== END 2023-12-24 11:55 | disposition home or self-care (01) ==
LOC: US 11:54
PROVIDERS: PCP Nurse Practitioner Family; Visit Provider Obstetrics & Gynecology
DX: O26.893 Other specified pregnancy related conditions, third trimester (principal); Z36.86 Encounter for antenatal screening for cervical length; R10.2 Pelvic and perineal pain; Z3A.31 31 weeks gestation of pregnancy
CPT/HCPCS: 76817

== ENCOUNTER 2023-12-30 07:11 | Outpatient (OUT) | payer OTHER, SELFPAY ==
--- NOTE | 2023-12-30 10:51 | US_ITS ---
[place] [id number] Patient Name: SANDY GODINEZ MRN: [id number] date: 1995 Sex: F Assigned Patient Location: US Current Patient Location: Accession/Order Number: [id number] Exam Date: 12/30/2023 10:52 Report Date: 12/30/2023 12:39 At the request of: JOSE MIGUEL BOATENG Procedure: US OB BPP w non-stress EXAMINATION: US OB BPP w non-stress HISTORY: Circumvallate placenta O43.112 COMPARISON: No relevant comparison available. TECHNIQUE: Ultrasound biophysical profile was performed in the radiology department. FINDINGS: BREATHING MOVEMENTS: 2 GROSS BODY MOVEMENTS: 2 TONE: 2 QUALITATIVE AMNIOTIC FLUID VOLUME: 2 PRESENTATION: Cephalic HEART RATE: 136 AMNIOTIC FLUID VOLUME: 14.8 GESTATIONAL AGE: 22 weeks 3 days US/US OB BPP w non-stress IMPRESSION: Total biophysical profile score: 8/8 Electronically authenticated by: KIRK OATES Date: 12/30/2023 12:39
--- NOTE | 2023-12-30 10:51 | US_ITS ---
[address] [address] Patient Name: SANDY GODINEZ MRN: [id number] date: 1995 Sex: F Assigned Patient Location: [facility] Current Patient Location: [facility] Accession/Order Number: [id number] Exam Date: 12/30/2023 10:52 Report Date: 12/30/2023 12:40 At the request of: JOSE MIGUEL BOATENG Procedure: US OB growth EXAMINATION: US OB growth HISTORY: Circumvallate placenta O43.112 COMPARISON: No relevant comparison available. FINDINGS: Heart Rate: 135.68 bpm Amniotic Fluid Volume: 14.8 cm, largest fluid pocket 5.1 cm Number: 1 Position: Cephalic presentation, longitudinal lie BIOMETRY: BPD: 8.19 cm cm; 32 weeks 6 days; 56.80 %% HC: 29.74 cm cm; 32 weeks 6 days; 24.80 %% AC: 26.64 cm cm; 30 weeks 5 days; 9.30 %% FL: 5.89 cm cm; 30 weeks 5 days; 5.90 %% EFW: 1706.20 g; 9.80 %, 3 lbs. 12 oz. FL/AC: 22.12 FL/BPD: 71.99 HC/AC: 1.12 GESTATIONAL AGE: Age by EDC: 32 weeks 3 days NOVA by EDC: 2024-02-21 Age by US: 31 weeks 6 days NOVA by US: 2024-02-25 US/US OB growth IMPRESSION: Estimated weight 10th percentile Electronically authenticated by: KIRK OATES Date: 12/30/2023 12:40
[2023-12-30 11:24] VITALS: BP 108/65; PULSE 88
--- NOTE | 2023-12-30 12:10 | US_ITS ---
[address] [address] Patient Name: SANDY GODINEZ MRN: [id number] date: 1995 Sex: F Assigned Patient Location: [facility] Current Patient Location: Accession/Order Number: [id number] Exam Date: 12/30/2023 12:15 Report Date: 12/30/2023 13:17 At the request of: JOSE MIGUEL BOATENG Procedure: US OB umbilical artery EXAMINATION: US OB umbilical artery HISTORY: 2 vessel cord COMPARISON: No relevant comparison available. TECHNIQUE: Duplex Doppler evaluation of the umbilical arteries. FINDINGS: Gestational age: 32 weeks 3 days Heart rate: 146 beats minute Proximal umbilical artery: PSV/EDV 133/51 cm/s. Resistive index 0.62. Ratio 2.6 Mid umbilical artery PSV/EDV 114/52 cm/s. Resistive index 0.55. Ratio 2.2 Distal umbilical artery PSV/EDV: 85/43 cm/s. Resistive index 0.49. Ratio 2.0 Forward flow identified throughout diastole US/US OB umbilical artery IMPRESSION: Normal exam. Class 0 Umbilical Artery: Class 0 = Normal umbilical artery blood velocity Class I = increased RI or PI, but still forward flow in diastole Class II = Absent end diastolic flow (AEDF) Class III = Reversal of end diastolic flow (REDF) Resistive Index (RI)<1 Systolic/Diastolic ratio (S:D): An S:D ratio of 2-3 after 34 wks is normal Systolic/Diastolic ratio (S:D): Age 16: 3.01 for the 10th percentile, 4.25 for the 50th percentile, 6.07 for the 90th percentile Age 20: 3.16 for the 10th percentile, 4.04 for the 50th percentile, 5.24 for the 90th percentile Age 24: 2.70 for the 10th percentile, 3.50 for the 50th percentile, 4.75 for the 90th percentile Age 28: 2.41 for the 10th percentile, 3.02 for the 50th percentile, 3.97 for the 90th percentile Age 30: 2.43 for the 10th percentile, 3.04 for the 50th percentile, 3.80 for the 90th percentile Age 32: 2.27 for the 10th percentile, 2.73 for the 50th percentile, 3.57 for the 90th percentile Age 34: 2.08 for the 10th percentile, 2.52 for the 50th percentile, 3.41 for the 90th percentile Age 36: 1.96 for the 10th percentile, 2.35 for the 50th percentile, 3.15 for the 90th percentile Age 38: 1.89 for the 10th percentile, 2.24 for the 50th percentile, 3.10 for the 90th percentile Age 40: 1.88 for the 10th percentile, 2.22 for the 50th percentile, 2.68 for the 90th percentile Age 41: 1.93 for the 10th percentile, 2.21 for the 50th percentile, 2.55 for the 90th percentile Age 42: 1.91 for the 10th percentile, 2.51 for the 50th percentile, 3.21 for the 90th percentile Uteroplacental Artery: Resistive Index (RI): Normal=<0.55 High Resistance=Bilateral notches (after 26 wks) and RI>0.55. Unilateral notches (after 26 wks) and RI>0.65 Systolic/Diastolic ratio (S:D) = 2-3 is normal after 32 weeks. Electronically authenticated by: KIRK OATES Date: 12/30/2023 13:17
== END 2023-12-30 13:06 | disposition home or self-care (01) ==
LOC: US 07:11 → FBC 10:44
PROVIDERS: PCP Nurse Practitioner Family; Visit Provider Obstetrics & Gynecology
DX: O43.113 Circumvallate placenta, third trimester (principal); Q27.0 Congenital absence and hypoplasia of umbilical artery; Z3A.32 32 weeks gestation of pregnancy
CPT/HCPCS: 76816; 76818; 76820

== ENCOUNTER 2024-01-02 07:01 | Outpatient (OUT) | payer OTHER, SELFPAY ==
--- OUTSIDE RECORDS SUMMARY | 2024-01-02 07:03 | XMS_ITS | CCD ---
Author Organization [facility] Care Team Providers Care Exhibit Artist Name Role Phone Farrah Garcia Primary Care Provider [phone] VIBHA JOHNSON Attending Unavailable VIBHA JOHNSON Referring Unavailable FARRAH GARCIA Primary Care Unavailable Kelli Oliver Primary Care Physician [phone] MISC, DR LORENZANA Primary Care Unavailable MANOJ [...] JUSTEN, DR GILLESPIE Consulting Unavailable JUSTEN, DR GILLSEPIE Admitting Unavailable JUSTEN, DR GILLESPIE Attending Unavailable [...] [facility]onide Drug Allergy 9 [facility] Repository (2 sources) Wound Dressing Adhesive [...] 02-15-2022 Episodic Other aftercare (1 source) 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; 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] Onset: 02-05-2022 Episodic Other [...] WITH AUTO DIFFon BASOPHILS ABSOLUTE AUTO 0.1 [facility] Basophils/100 WBC (Bld) 0.7 % 0.2 - 2.0 % [facility] Eosinophils/100 WBC (Bld) 2.6 % 0.9 - 7.0 % [facility] Erythrocyte distribution width (RBC) [Ratio] 13.4 % 11.0 - 15.0 % [facility] Hematocrit (Bld) [Volume fraction] 39.0 % 36.0 - 48.0 % [facility] Hemoglobin (Bld) [Mass/Vol] 12.8 g/dL 12.0 - 16.0 g/dL [facility] IMMATURE GRANULOCYTES ABS AUTO 0.01 [facility] Immature granulocytes/100 WBC (Bld) 0.1 % 0.0 - 0.5 % [facility] LYMPHOCYTES ABSOLUTE AUTO 2.2 [facility] Lymphocytes/100 WBC (Bld) 26.1 % 20.5 - 60.0 % [facility] MCH (RBC) [Entitic mass] 28.6 pg 26.7 - 34.0 pg [facility] MCHC (RBC) [Mass/Vol] 32.8 g/dL 29.9 - 35.2 g/dL [facility] MCV (RBC) [Entitic vol] 87.2 fL 81.0 - 99.0 fL [facility] MONOCYTES ABSOLUTE AUTO 0.5 [facility] Monocytes/100 WBC (Bld) 5.7 % 1.7 - 12.0 % [facility] NEUTROPHILS ABSOLUTE AUTO 5.5 [facility] Neutrophils/100 WBC (Bld) 64.8 % 43.0 - 75.0 % [facility] Platelet mean volume (Bld) [Entitic vol] 10.1 fL 9.5 - 13.5 fL [facility] TBH EO # 0.2 [facility] PLT 340 [facility] RBC 4.47 [facility] WBC 8.4 [facility] HCG ( test) Ql (U)o n 07-19-2023 Interpretation and review of laboratory results Abnormal [facility] Preg Test, Ur Positive [facility] Urinalysis macro (dipstick) panel (U)on 07-19-2023 Bilirubin, UA Negative Negative - 4(70) +++ mg/dL [facility] Blood, UA Positive Negative - 50 Anselmo/mcL [facility] Comment on above: moderate Clarity, UA Clear [facility] Color, UA [place]ether [facility] Glucose, UA Negative Negative - 1999(110) ++++ mg/dL [facility] Interpretation and review of laboratory results Abnormal [facility] Ketones, UA Positive Negative - 160(16) ++++ mg/dL [facility] Comment on above: trace Leukocytes, UA Positive Negative - 500+++ Monik/mcL [facility] Comment on above: small Nitrite, UA Negative Negative - Positive [facility] pH, UA 6.0 5 - 9 [facility] Protein, UA Positive Negative - 1999(20) ++++ mg/dL [facility] Comment on above: 30 Spec Grav, UA 1.030 1 - 1.03 [facility] Urobilinogen, UA 1.0 0.2 - 12 mg/dL [facility] In office Testingon 03-23-20 23 In office Testing [id number] 1.00CD:[address] [facility] CBC AUTO DIFFon 07-30-2022 BASO # 0.1 103/ul Normal 0.0-0.1 [facility] Comment on above: Performed By: #### U RCX #### [facility] [address] [place] [address] Dr. Caitlin Martinez Basophils/100 WBC (Bld) 1.1 % Normal 0.2-2.0 [facility] Comment on above: Performed By: #### U RCX #### [facility] [address] [place] [address] Dr. Caitlin Martinez EO # 0.3 103/ul Normal 0.0-0.7 [facility] Comment on above: Performed By: #### U RCX #### [facility] [address] [place] [address] Dr. Catilin Martinez Eosinophils/100 WBC (Bld) 4.7 % Normal 0.9-7.0 [facility] Comment on above: Performed By: #### U RCX #### [facility] [address] [place] [address] Dr. Caitlin Martinez Erythrocyte distribution width (RBC) [Ratio] 14.7 % Normal 11.0-15.0 [facility] Comment on above: Performed By: #### U RCX #### [facility] [address] [place] [address] Dr. Caitlin Martinez Hematocrit (Bld) [Volume fraction] 39.3 % Normal 36.0-48.0 [facility] Comment on above: Performed By: #### U RCX #### [facility] [address] [place] [address] Dr. Caitlin Martinez Hemoglobin (Bld) [Mass/Vol] 12.7 g/dL Normal 12.0-16.0 [facility] Comment on above: Performed By: #### U RCX #### [facility] [address] [place] [address] Dr. Caitlin Martinez IG # 0.02 10e3/ul Normal 0.00-0.03 [facility] Comment on above: Performed By: #### U RCX #### [facility] [address] [place] [address] Dr. Caitlin Martinez IG % 0.3 % Normal 0.0-0.5 [facility] Comment on above: Performed By: #### U RCX #### [facility] [address] [place] [address] Dr. Caitlin Martinez LYMPH # 2.5 103/ul Normal 1.2-3.8 [facility] Comment on above: Performed By: #### U RCX #### [facility] [address] [place] [address] Dr. Caitlin Martinez Lymphocytes/100 WBC (Bld) 34.5 % Normal 20.5-60.0 [facility] Comment on above: Performed By: #### U RCX #### [facility] [address] [place] [address] Dr. Caitlin Martinez MANUAL DIFF REQ NO Normal [facility] Comment on above: Performed By: #### U RCX #### [facility] [address] [place] [address] Dr. Caitlin Martinez MCH (RBC) [Entitic mass] 27.3 pg Normal 26.7-34.0 [facility] Comment on above: Performed By: #### U RCX #### [facility] [address] [place] [address] Dr. Caitlin Martinez MCHC (RBC) [Mass/Vol] 32.3 g/dL Normal 29.9-35.2 [facility] Comment on above: Performed By: #### U RCX #### [facility] [address] [place] [address] Dr. Caitlin Martinez MCV (RBC) [Entitic vol] 84.5 fL Normal 81.0-99.0 [facility] Comment on above: Performed By: #### U RCX #### [facility] [address] [place] [address] Dr. Caitlin Martinez MONO # 0.5 103/ul Normal 0.3-0.8 [facility] Comment on above: Performed By: #### U RCX #### [facility] [address] [place] [address] Dr. Caitlin Martinez Monocytes/100 WBC (Bld) 7.3 % Normal 1.7-12.0 [facility] Comment on above: Performed By: #### U RCX #### [facility] [address] [place] [address] Dr. Caitlin Martinez NEUT # 3.8 103/ul Normal 1.4-6.5 [facility] Comment on above: Performed By: #### U RCX #### [facility] [address] [place] [address] Dr. Caitlin Martniez Neutrophils/100 WBC (Bld) 52.1 % Normal 43.0-75.0 [facility] Comment on above: Performed By: #### U RCX #### [facility] [address] [place] [address] Dr. Caitlin Martinez Platelet mean volume (Bld) [Entitic vol] 9.0 fL Critically low 9.5-13.5 [facility] Comment on above: Performed By: #### U RCX #### [facility] [address] [place] [address] Dr. Caitlin Martinez PLT 368 103/ul Normal 150-450 [facility] Comment on above: Performed By: #### U RCX #### [facility] [address] [place] [address] Dr. Caitlin Martinez RBC 4.65 106/ul Normal 4.20-5.40 [facility] Comment on above: Performed By: #### U RCX #### [facility] [address] [place] [address] Dr. Caitlin Martinez WBC 7.2 103/ul Normal 4.0-11.0 [facility] Comment on above: Performed By: #### U RCX #### [facility] [address] [place] [address] Dr. Caitlin Martinez IRONon 07-30-2022 Iron [Mass/Vol] 43.0 ug/dL Critically low 50.0-170.0 [facility] Comment on above: Performed By: #### U RCX #### [facility] [address] [place] [address] Dr. Caitlin Martinez PAP ACOG PANEL 2: 21 to 30on 07-30-2022 . . Normal [facility] Comment on above: Performed By: #### U RCX #### [facility] [address] [place] [address] Dr. Caitlin Martinez Age Gdln ACOG Testing - [facility] Comment on above: Performed By: #### U RCX #### [facility] [address] [address] [address] Caitlin Martinez DIAGNOSIS: Comment [facility] Comment on above: Result Comment: NEGA TIVE FOR INTRAEPITHELIAL LESION OR MALIGNANCY. Performed By: #### U RCX #### [facility] [address] [place] [address] Dr. Caitlin Martinez Methodology: Comment [facility] Comment on above: Result Comment: This liquid based ThinPrep(R) pap test was screened with the use of an image guided system. Performed By: #### U RCX #### [facility] [address] [place] [address] Dr. Caitlin Martinez Note: Comment [facility] Comment on above: Result Comment: The Pap smear is a screening test designed to aid in the detection of premalignant and malignant conditions of the uterine cervix. It is not a diagnostic procedure and should not be used as the sole means of detecting cervical cancer. Both false-positive and false-negative reports do occur. . Performed By: #### U RCX #### [facility] [address] [place] [address] Dr. Caitlin Martinez Performed by: Comment Normal [facility] Comment on above: Result Comment: Bhavna Cormier, [employer] Certified Supervisor (ASCP) Performed By: #### U RCX #### [facility] [address] [place] [address] Dr. Caitlin Martinez Reflex Criteria: Comment Normal [facility] Comment on above: Result Comment: The HPV DNA reflex criteria were not met with this specimen result therefore, no HPV testing was performed. . Performed By: #### U RCX #### [facility] [address] [place] [address] Dr. Caitlin Martinez Specimen adequacy: Comment Normal [facility] Comment on above: Result Comment: Sati sfactory for evaluation. Endocervical and/or squamous metaplastic cells (endocervical component) are present. Performed By: #### U RCX #### [facility] [address] [place] [address] Dr. Caitlin Martinez INSULINon 04-19-2022 Insulin 9.1 uIU/mL Normal 2.6-24.9 [facility] Comment on above: Performed By: #### I HORACIO #### [facility] [address] [place] [address] Dr. Caitlin Martinez CBC AUTO DIFFon 04-18-2022 BASO # 0.1 103/ul Normal 0.0-0.1 [facility] Comment on above: Performed By: #### U RCX #### [facility] [address] [place] [address] Dr. Caitlin Martinez Basophils/100 WBC (Bld) 1.0 % Normal 0.2-2.0 [facility] Comment on above: Performed By: #### U RCX #### [facility] [address] [place] [address] Dr. Caitlin Martinez EO # 0.3 103/ul Normal 0.0-0.7 [facility] Comment on above: Performed By: #### U RCX #### [facility] [address] [place] [address] Dr. Caitlin Martinez Eosinophils/100 WBC (Bld) 4.1 % Normal 0.9-7.0 [facility] Comment on above: Performed By: #### U RCX #### [facility] [address] [place] [address] Dr. Caitlin Martinez Erythrocyte distribution width (RBC) [Ratio] 16.0 % Critically high 11.0-15.0 [facility] Comment on above: Performed By: #### U RCX #### [facility] [address] [place] [address] Dr. Caitlin Martinez Hematocrit (Bld) [Volume fraction] 35.7 % Critically low 36.0-48.0 [facility] Comment on above: Performed By: #### U RCX #### [facility] [address] [place] [address] Dr. Caitlin Martinez Hemoglobin (Bld) [Mass/Vol] 10.9 g/dL Critically low 12.0-16.0 [facility] Comment on above: Performed By: #### U RCX #### [facility] [address] [place] [address] Dr. Caitlin Martinez IG # 0.07 10e3/ul Critically high 0.00-0.03 [facility] Comment on above: Performed By: #### U RCX #### [facility] [address] [place] [address] Dr. Caitlin Martinez IG % 1.0 % Critically high 0.0-0.5 [facility] Comment on above: Performed By: #### U RCX #### [facility] [address] [place] [address] Dr. Caitlin Martinez LYMPH # 2.3 103/ul Normal 1.2-3.8 [facility] Comment on above: Performed By: #### U RCX #### [facility] [address] [place] [address] Dr. Caitlin Martinez Lymphocytes/100 WBC (Bld) 31.4 % Normal 20.5-60.0 [facility] Comment on above: Performed By: #### U RCX #### [facility] [address] [place] [address] Dr. Caitlin Martinez MANUAL DIFF REQ NO Normal [facility] Comment on above: Performed By: #### U RCX #### [facility] [address] [place] [address] Dr. Caitlin Martinez MCH (RBC) [Entitic mass] 24.8 pg Critically low 26.7-34.0 [facility] Comment on above: Performed By: #### U RCX #### [facility] [address] [address] [address] Caitlin Martinez MCHC (RBC) [Mass/Vol] 30.5 g/dL Normal 29.9-35.2 [facility] Comment on above: Performed By: #### U RCX #### [facility] [address] [address] [address] Caitlin Martinez MCV (RBC) [Entitic vol] 81.1 fL Normal 81.0-99.0 [facility] Comment on above: Performed By: #### U RCX #### [facility] [address] [address] [address] Caitlin Martinez MONO # 0.5 103/ul Normal 0.3-0.8 [facility] Comment on above: Performed By: #### U RCX #### [facility] [address] [place] [address] Dr. Caitlin Martinez Monocytes/100 WBC (Bld) 6.6 % Normal 1.7-12.0 [facility] Comment on above: Performed By: #### U RCX #### [facility] [address] [place] [address] Dr. Caitlin Martinez NEUT # 4.1 103/ul Normal 1.4-6.5 [facility] Comment on above: Performed By: #### U RCX #### [facility] [address] [place] [address] Dr. Caitlin Martinez Neutrophils/100 WBC (Bld) 55.9 % Normal 43.0-75.0 [facility] Comment on above: Performed By: #### U RCX #### [facility] [address] [place] [address] Dr. Caitlin Martinez Platelet mean volume (Bld) [Entitic vol] 9.4 fL Critically low 9.5-13.5 [facility] Comment on above: Performed By: #### U RCX #### [facility] [address] [place] [address] Dr. Caitlin Martinez PLT 369 103/ul Normal 150-450 [facility] Comment on above: Performed By: #### U RCX #### [facility] [address] [address] [address] Caitlin Martinez RBC 4.40 106/ul Normal 4.20-5.40 [facility] Comment on above: Performed By: #### U RCX #### [facility] [address] [address] [address] Caitlin Martinez WBC 7.3 103/ul Normal 4.0-11.0 [facility] Comment on above: Performed By: #### U RCX #### [facility] [address] [address] [address] Caitlin Martinez FREE THYROXINE INDEX T7on FTI 2.20 Normal 1.30-4.50 [facility] Comment on above: Performed By: #### I HORACIO #### [facility] [address] [address] [address] Caitlin Martinez T3U 29.0 % Critically low 30.0-39.0 [facility] Comment on above: Performed By: #### I HORACIO #### [facility] [address] [address] [address] Caitlin Martinez T4 [Mass/Vol] 7.60 ug/dL Normal 4.80-13.90 [facility] Comment on above: Performed By: #### I HORACIO #### [facility] [address] [address] [address] Caitlin Martinez GLYCOHEMOGLOBIN A1Con 2021 ADA RECOMMENDATION SEE BELOW Normal [facility] Comment on above: Result Comment: ADA RECOMMENDED LIMIT 4.0 - 6.0 ADA THERAPEUTIC TARGET < 7.0 ACTION SUGGESTED > 7.0 Performed By: #### U RCX #### [facility] [address] [address] [address] Caitlin Martinez Glucose [Mass/Vol] 97 mg/dL Normal [facility] Comment on above: Performed By: #### U RCX #### [facility] [address] [address] [address] Caitlin Martinez HbA1c (Bld) [Mass fraction] 5.0 % Normal 4.5-6.2 [facility] Comment on above: Performed By: #### U RCX #### [facility] [address] [address] [address] Caitlin Martinez IRONon 04-18-2022 Iron [Mass/Vol] 35.0 ug/dL Critically low 50.0-170.0 [facility] Comment on above: Performed By: #### I HORACIO #### [facility] [address] [address] [address] Caitlin Martinez LIPID PROFILEon 04-18-2022 CHOL-HDL RATIO NORM SEE BELOW Normal [facility] Comment on above: Result Comment: 3.3 - 4.4 LOW RISK 4.4 - 7.1 AVERAGE RISK 7.1 - 11.0 MODERATE RISK >11.0 HIGH RISK Performed By: #### I HORACIO #### [facility] [address] [place] [address] Dr. Caitlin Martinez Cholesterol [Mass/Vol] 221 mg/dL Critically high <=200 [facility] Comment on above: Performed By: #### I HORACIO #### [facility] [address] [address] [address] Caitlin Martinez Cholesterol in HDL [Mass/Vol] 67 mg/dL Critically high 40-60 [facility] Comment on above: Performed By: #### I HORACIO #### [facility] [address] [place] [address] Dr. Caitlin Martinez Cholesterol in LDL [Mass/Vol] 142.4 mg/dL Normal [facility] Comment on above: Performed By: #### I HORACIO #### [facility] [address] [address] [address] Caitlin Martinez Cholesterol.total/Cho lesterol in HDL [Mass ratio] 3.3 {ratio} Normal [facility] Comment on above: Performed By: #### I HORACIO #### [facility] [address] [place] [address] Dr. Caitlin Martinez HDL NORMAL > or = 60 mg/dl - LO W CARDIOVASCULAR RISK <40 mg/dl - HIGH CARDIOVASCULAR RISK Normal [facility] Comment on above: Performed By: #### I HORACIO #### [facility] [address] [address] [address] Caitlin Martinez LDL CALC NORMAL SEE BELOW Normal [facility] Comment on above: Result Comment: <100 mg/dl OPTIMAL 100 - 129 mg/dl NEAR OR ABOVE OPTIMAL 130 - 159 mg/dl BORDERLINE HIGH 160 - 189 mg/dl HIGH >190 mg/dl VERY HIGH Performed By: #### I HORACIO #### [facility] [address] [address] [address] Caitlin Martinez Triglyceride [Mass/Vol] 58 mg/dL Normal <=150 [facility] Comment on above: Performed By: #### I HORACIO #### [facility] [address] [address] [address] Caitlin Martinez VLDL CALC 11.6 mg/dL Normal [facility] Comment on above: Performed By: #### I HORACIO #### [facility] [address] [place] [address] Dr. Caitlin Martinez PROF 14(COMP METB)on 022 Albumin [Mass/Vol] 3.8 g/dL Normal 3.4-5.0 [facility] Comment on above: Performed By: #### I HORACIO #### [facility] [address] [place] [address] Dr. Caitlin Martinez Albumin/Globulin [Mass ratio] 1.1 {ratio} Normal [facility] Comment on above: Performed By: #### I HORACIO #### [facility] [address] [address] [address] Caitlin Martinez ALP [Catalytic activity/Vol] 132 U/L Critically high 46-116 [facility] Comment on above: Performed By: #### I HORACIO #### [facility] [address] [address] [address] Caitlin Martinez ALT [Catalytic activity/Vol] 55 U/L Normal 14-59 [facility] Comment on above: Performed By: #### I HORACIO #### [facility] [address] [place] [address] Dr. Caitlin Martinez Anion gap [Moles/Vol] 12.6 mmol/L Normal [facility] Comment on above: Performed By: #### I HORACIO #### [facility] [address] [address] [address] Caitlin Martinez AST [Catalytic activity/Vol] 27 U/L Normal 15-37 [facility] Comment on above: Performed By: #### I HORACIO #### [facility] [address] [address] [address] Caitlin Martinez Bilirubin [Mass/Vol] 0.6 mg/dL Normal 0.2-1.0 [facility] Comment on above: Performed By: #### I HORACIO #### [facility] [address] [address] [address] Caitlin Martinez Calcium [Mass/Vol] 9.1 mg/dL Normal 8.5-10.1 [facility] Comment on above: Performed By: #### I HORACIO #### [facility] [address] [address] [address] Caitlin Martinez Chloride [Moles/Vol] 106 mmol/L Normal 98-107 [facility] Comment on above: Performed By: #### I HORACIO #### [facility] [address] [address] [address] Caitlin Martinez CO2 [Moles/Vol] 26.5 mmol/L Normal 21.0-32.0 [facility] Comment on above: Performed By: #### I HORACIO #### [facility] [address] [address] [address] Caitlin Martinez Creatinine [Mass/Vol] 0.63 mg/dL Normal 0.55-1.02 [facility] Comment on above: Performed By: #### I HORACIO #### [facility] [address] [address] [address] Caitlin Martinez EGFR-AF WELSH >60 Normal >=60 [facility] Comment on above: Performed By: #### I HORACIO #### [facility] [address] [address] [address] Caitlin Martinez EGFR-NON AF WELSH >60 Normal >=60 [facility] Comment on above: Performed By: #### I HORACIO #### [facility] [address] [address] [address] Caitlin Martinez Globulin (S) [Mass/Vol] 3.6 g/dL Normal [facility] Comment on above: Performed By: #### I HORACIO #### [facility] [address] [address] [address] Caitlin Martinez Glucose [Mass/Vol] 98 mg/dL Normal 74-106 [facility] Comment on above: Performed By: #### I HORACIO #### [facility] [address] [place] [address] Dr. Caitlin Martinez Potassium [Moles/Vol] 4.1 mmol/L Normal 3.5-5.1 [facility] Comment on above: Performed By: #### I HORACIO #### [facility] [address] [place] [address] Dr. Caitlin Martinez Protein [Mass/Vol] 7.4 g/dL Normal 6.4-8.2 [facility] Comment on above: Performed By: #### I HORACIO #### [facility] [address] [place] [address] Dr. Caitlin Martinez Sodium [Moles/Vol] 141 mmol/L Normal 136-145 [facility] Comment on above: Performed By: #### I HORACIO #### [facility] [address] [place] [address] Dr. Caitlin Martinez Urea nitrogen [Mass/Vol] 9.0 mg/dL Normal 7.0-18.0 [facility] Comment on above: Performed By: #### I HORACIO #### [facility] [address] [place] [address] Dr. Caitlin Martinez Urea nitrogen/Creatinine [Mass ratio] 14.3 mg/mg Normal [facility] Comment on above: Performed By: #### I HORACIO #### [facility] [address] [place] [address] Dr. Caitlin Martinez TSHon 04-18-2022 TSH 1.349 uIU/mL Normal 0.358-3.740 [facility] Comment on above: Performed By: #### I HORACIO #### [facility] [address] [place] [address] Dr. Caitlin Martinez ANTIBODY ID PANELon 02-15-20 22 ANTIBODY ID PANEL Antibody ID Anti-D Blood Bank Notes most likely due to Rhogam given on 12/01/21 Normal [facility] Comment on above: Performed By: #### D IRCMB, ABINadine #### [facility] [address] [place] [address] [id number] [address] Caitlin Martinez CTA CHEST WO W [...] Date: 2022-02-10 22:55 Normal [facility] CBC AUTO DIFFon 02-10-2022 BASO # 0.1 103/ul Normal 0.0-0.1 [facility] Comment on above: Performed By: #### C BC #### [facility] [address] [place] [address] Dr. Caitlin Martinez Basophils/100 WBC (Bld) 0.4 % Normal 0.2-2.0 [facility] Comment on above: Performed By: #### C BC #### [facility] [address] [place] [address] Dr. Caitlin Martinez EO # 0.5 103/ul Normal 0.0-0.7 [facility] Comment on above: Performed By: #### C BC #### [facility] [address] [place] [address] Dr. Caitlin Martinez Eosinophils/100 WBC (Bld) 4.2 % Normal 0.9-7.0 [facility] Comment on above: Performed By: #### C BC #### [facility] [address] [place] [address] Dr. Caitlin Martinez Erythrocyte distribution width (RBC) [Ratio] 14.7 % Normal 11.0-15.0 [facility] Comment on above: Performed By: #### C BC #### [facility] [address] [place] [address] Dr. Caitlin Martinez Hematocrit (Bld) [Volume fraction] 31.1 % Critically low 36.0-48.0 [facility] Comment on above: Performed By: #### C BC #### [facility] [address] [place] [address] Dr. Caitlin Martinez Hemoglobin (Bld) [Mass/Vol] 9.6 g/dL Critically low 12.0-16.0 [facility] Comment on above: Performed By: #### C BC #### [facility] [address] [place] [address] Dr. Caitlin Martinez IG # 0.28 10e3/ul Critically high 0.00-0.03 [facility] Comment on above: Performed By: #### C BC #### [facility] [address] [place] [address] Dr. Caitlin Martinez IG % 2.3 % Critically high 0.0-0.5 [facility] Comment on above: Performed By: #### C BC #### [facility] [address] [place] [address] Dr. Caitlin Martinez LYMPH # 3.3 103/ul Normal 1.2-3.8 [facility] Comment on above: Performed By: #### C BC #### [facility] [address] [place] [address] Dr. Caitlin Martinez Lymphocytes/100 WBC (Bld) 26.9 % Normal 20.5-60.0 [facility] Comment on above: Performed By: #### C BC #### [facility] [address] [place] [address] Dr. Caitiln Martinez MANUAL DIFF REQ NO Normal [facility] Comment on above: Performed By: #### C BC #### [facility] [address] [place] [address] Dr. Caitlin Martinez MCH (RBC) [Entitic mass] 26.2 pg Critically low 26.7-34.0 [facility] Comment on above: Performed By: #### C BC #### [facility] [address] [place] [address] Dr. Caitlin Martinez MCHC (RBC) [Mass/Vol] 30.9 g/dL Normal 29.9-35.2 [facility] Comment on above: Performed By: #### C BC #### [facility] [address] [place] [address] Dr. Caitlin Martinez MCV (RBC) [Entitic vol] 84.7 fL Normal 81.0-99.0 [facility] Comment on above: Performed By: #### C BC #### [facility] [address] [place] [address] Dr. Caitlin Martinez MONO # 1.1 103/ul Critically high 0.3-0.8 [facility] Comment on above: Performed By: #### C BC #### [facility] [address] [place] [address] Dr. Caitlin Martinez Monocytes/100 WBC (Bld) 8.7 % Normal 1.7-12.0 [facility] Comment on above: Performed By: #### C BC #### [facility] [address] [place] [address] Dr. Caitlin Martinez NEUT # 7.0 103/ul Critically high 1.4-6.5 [facility] Comment on above: Performed By: #### C BC #### [facility] [address] [place] [address] Dr. Caitlin Martinez Neutrophils/100 WBC (Bld) 57.5 % Normal 43.0-75.0 [facility] Comment on above: Performed By: #### C BC #### [facility] [address] [place] [address] Dr. Caitlin Martinez Platelet mean volume (Bld) [Entitic vol] 9.1 fL Critically low 9.5-13.5 [facility] Comment on above: Performed By: #### C BC #### [facility] [address] [address] [address] Caitlin Martinez PLT 437 103/ul Normal 150-450 [facility] Comment on above: Performed By: #### C BC #### [facility] [address] [address] [address] Caitlin Martinez RBC 3.67 106/ul Critically low 4.20-5.40 [facility] Comment on above: Performed By: #### C BC #### [facility] [address] [address] [address] Caitlin Martinez WBC 12.3 103/ul Critically high 4.0-11.0 [facility] Comment on above: Performed By: #### C BC #### [facility] [address] [place] [address] Dr. Caitlin Martinez Covid-19 PCR (CVDTB)on 01-16 SARS-CoV-2 (COVID-19) RNA JONATAN+probe Ql (Unsp spec) Not detected Normal NOT DETECTED [facility] Comment on above: Result Comment: When [...] for this test is supported by the [place] of Health and Human Service's declaration that [...] used). Performed By: #### C VDTBH #### [facility] [address] [address] [address] Caitlin Martinez PROF 14(COMP METB)on 022 Albumin [Mass/Vol] 2.1 g/dL Critically low 3.4-5.0 [facility] Comment on above: Performed By: #### U RCX #### [facility] [address] [place] [address] Dr. Caitlin Martinez Albumin/Globulin [Mass ratio] 0.5 {ratio} Normal [facility] Comment on above: Performed By: #### U RCX #### [facility] [address] [place] [address] Dr. Caitlin Martinez ALP [Catalytic activity/Vol] 202 U/L Critically high 46-116 [facility] Comment on above: Performed By: #### U RCX #### [facility] [address] [place] [address] Dr. Caitlin Martinez ALT [Catalytic activity/Vol] 20 U/L Normal 14-59 [facility] Comment on above: Performed By: #### U RCX #### [facility] [address] [place] [address] Dr. Caitlin Martinez Anion gap [Moles/Vol] 11.6 mmol/L Normal [facility] Comment on above: Performed By: #### U RCX #### [facility] [address] [place] [address] Dr. Caitlin Martinez AST [Catalytic activity/Vol] 17 U/L Normal 15-37 [facility] Comment on above: Performed By: #### U RCX #### [facility] [address] [place] [address] Dr. Caitlin Martinez Bilirubin [Mass/Vol] 0.3 mg/dL Normal 0.2-1.0 [facility] Comment on above: Performed By: #### U RCX #### [facility] [address] [place] [address] Dr. Caitlin Martinez Calcium [Mass/Vol] 9.2 mg/dL Normal 8.5-10.1 [facility] Comment on above: Performed By: #### U RCX #### [facility] [address] [address] [address] Caitlin Martienz Chloride [Moles/Vol] 104 mmol/L Normal 98-107 [facility] Comment on above: Performed By: #### U RCX #### [facility] [address] [place] [address] Dr. Caitlin Martinez CO2 [Moles/Vol] 26.9 mmol/L Normal 21.0-32.0 [facility] Comment on above: Performed By: #### U RCX #### [facility] [address] [address] [address] Caitlin Martinez Creatinine [Mass/Vol] 0.56 mg/dL Normal 0.55-1.02 [facility] Comment on above: Performed By: #### U RCX #### [facility] [address] [place] [address] Dr. Caitlin Martinez EGFR-AF WELSH >60 Normal >=60 [facility] Comment on above: Performed By: #### U RCX #### [facility] [address] [place] [address] Dr. Caitlin Martinez EGFR-NON AF WELSH >60 Normal >=60 [facility] Comment on above: Performed By: #### U RCX #### [facility] [address] [address] [address] Caitlin Martinez Globulin (S) [Mass/Vol] 4.4 g/dL Normal [facility] Comment on above: Performed By: #### U RCX #### [facility] [address] [address] [address] Caitlin Martinez Glucose [Mass/Vol] 108 mg/dL Critically high 74-106 [facility] Comment on above: Performed By: #### U RCX #### [facility] [address] [place] [address] Dr. Caitlin Martinez Potassium [Moles/Vol] 3.5 mmol/L Normal 3.5-5.1 [facility] Comment on above: Performed By: #### U RCX #### [facility] [address] [place] [address] Dr. Caitlin Martinez Protein [Mass/Vol] 6.5 g/dL Normal 6.4-8.2 [facility] Comment on above: Performed By: #### U RCX #### [facility] [address] [place] [address] Dr. Caitlin Martinez Sodium [Moles/Vol] 139 mmol/L Normal 136-145 [facility] Comment on above: Performed By: #### U RCX #### [facility] [address] [address] [address] Caitlin Martinez Urea nitrogen [Mass/Vol] 7.0 mg/dL Normal 7.0-18.0 [facility] Comment on above: Performed By: #### U RCX #### [facility] [address] [place] [address] Dr. Caitlin Martinez Urea nitrogen/Creatinine [Mass ratio] 12.5 mg/mg Normal [facility] Comment on above: Performed By: #### U RCX #### [facility] [address] [place] [address] Dr. Caitlin Martinez TROPONIN, HIGH SENSITIVITYon 02-10-2022 HSTROP <4.0 Normal 4.0-51.3 [facility] Comment on above: Result Comment: CUT- OFF POINTS HAVE BEEN ESTABLISHED BASED ON THE FOURTH UNIVERSAL DEFINITIONS OF MYOCARDIAL INFARCTION. THE UPPER REFERENCE LIMIT (URL) OF TROPONIN, DEFINED THE 99TH PERCENTILE OF cTnI DISTRIBUTION IN A REFERENCE POPULATION, HAS BEEN CONFIRMED THE DECISION THRESHOLD FOR NM DIAGNOSIS. Performed By: #### U RCX #### [facility] [address] [place] [address] Dr. Caitlin Martinez CBC AUTO DIFFon 02-09-2022 BASO # 0.1 103/ul Normal 0.0-0.1 [facility] Comment on above: Performed By: #### U RCX #### [facility] [address] [place] [address] Dr. Caitlin Martinez Basophils/100 WBC (Bld) 0.6 % Normal 0.2-2.0 [facility] Comment on above: Performed By: #### U RCX #### [facility] [address] [place] [address] Dr. Caitlin Martinez EO # 0.3 103/ul Normal 0.0-0.7 [facility] Comment on above: Performed By: #### U RCX #### [facility] [address] [address] [address] Caitlin Martinez Eosinophils/100 WBC (Bld) 2.3 % Normal 0.9-7.0 [facility] Comment on above: Performed By: #### U RCX #### [facility] [address] [address] [address] Caitlin Martinez Erythrocyte distribution width (RBC) [Ratio] 14.6 % Normal 11.0-15.0 [facility] Comment on above: Performed By: #### U RCX #### [facility] [address] [place] [address] Dr. Caitlin Martinez Hematocrit (Bld) [Volume fraction] 28.8 % Critically low 36.0-48.0 [facility] Comment on above: Performed By: #### U RCX #### [facility] [address] [place] [address] Dr. Caitlin Martinez Hemoglobin (Bld) [Mass/Vol] 9.0 g/dL Critically low 12.0-16.0 [facility] Comment on above: Performed By: #### U RCX #### [facility] [address] [place] [address] Dr. Caitlin Martinez IG # 0.20 10e3/ul Critically high 0.00-0.03 [facility] Comment on above: Performed By: #### U RCX #### [facility] [address] [place] [address] Dr. Caitlin Martinez IG % 1.5 % Critically high 0.0-0.5 [facility] Comment on above: Performed By: #### U RCX #### [facility] [address] [place] [address] Dr. Caitlin Martinez LYMPH # 3.0 103/ul Normal 1.2-3.8 [facility] Comment on above: Performed By: #### U RCX #### [facility] [address] [place] [address] Dr. Caitlin Martinez Lymphocytes/100 WBC (Bld) 22.2 % Normal 20.5-60.0 [facility] Comment on above: Performed By: #### U RCX #### [facility] [address] [place] [address] Dr. Caitlin Martinez MANUAL DIFF REQ NO Normal [facility] Comment on above: Performed By: #### U RCX #### [facility] [address] [place] [address] Dr. Caitlin Martinez MCH (RBC) [Entitic mass] 26.2 pg Critically low 26.7-34.0 [facility] Comment on above: Performed By: #### U RCX #### [facility] [address] [place] [address] Dr. Caitlin Martinez MCHC (RBC) [Mass/Vol] 31.3 g/dL Normal 29.9-35.2 [facility] Comment on above: Performed By: #### U RCX #### [facility] [address] [place] [address] Dr. Caitlin Martinez MCV (RBC) [Entitic vol] 83.7 fL Normal 81.0-99.0 [facility] Comment on above: Performed By: #### U RCX #### [facility] [address] [place] [address] Dr. Caitlin Martinez MONO # 1.3 103/ul Critically high 0.3-0.8 [facility] Comment on above: Performed By: #### U RCX #### [facility] [address] [place] [address] Dr. Caitlin Martinez Monocytes/100 WBC (Bld) 9.8 % Normal 1.7-12.0 [facility] Comment on above: Performed By: #### U RCX #### [facility] [address] [place] [address] Dr. Caitlin Martinez NEUT # 8.5 103/ul Critically high 1.4-6.5 [facility] Comment on above: Performed By: #### U RCX #### [facility] [address] [address] [address] Caitlin Martinez Neutrophils/100 WBC (Bld) 63.6 % Normal 43.0-75.0 [facility] Comment on above: Performed By: #### U RCX #### [facility] [address] [address] [address] Caitlin Martinez Platelet mean volume (Bld) [Entitic vol] 9.1 fL Critically low 9.5-13.5 [facility] Comment on above: Performed By: #### U RCX #### [facility] [address] [address] [address] Caitlin Martinez PLT 355 103/ul Normal 150-450 [facility] Comment on above: Performed By: #### U RCX #### [facility] [address] [place] [address] Dr. Caitlin Martinez RBC 3.44 106/ul Critically low 4.20-5.40 [facility] Comment on above: Performed By: #### U RCX #### [facility] [address] [address] [address] Caitlin Martinez WBC 13.3 103/ul Critically high 4.0-11.0 [facility] Comment on above: Performed By: #### U RCX #### [facility] [address] [place] [address] Dr. Caitlin Martinez SCREENon 02-09-2022 SCREEN Negative Normal [facility] Comment on above: Performed By: #### F ETSCRN #### [facility] [address] [address] [address] Caitlin Martinez CBC AUTO DIFFon 02-08-2022 BASO # 0.1 103/ul Normal 0.0-0.1 [facility] Comment on above: Performed By: #### U RCX #### [facility] [address] [address] [address] Caitlin Martinez Basophils/100 WBC (Bld) 0.4 % Normal 0.2-2.0 [facility] Comment on above: Performed By: #### U RCX #### [facility] [address] [address] [address] Caitlin Martinez EO # 0.3 103/ul Normal 0.0-0.7 [facility] Comment on above: Performed By: #### U RCX #### [facility] [address] [place] [address] Dr. Caitlin Martinez Eosinophils/100 WBC (Bld) 2.6 % Normal 0.9-7.0 [facility] Comment on above: Performed By: #### U RCX #### [facility] [address] [place] [address] Dr. Caitlin Martinez Erythrocyte distribution width (RBC) [Ratio] 14.7 % Normal 11.0-15.0 [facility] Comment on above: Performed By: #### U RCX #### [facility] [address] [place] [address] Dr. Caitlin Martinez Hematocrit (Bld) [Volume fraction] 30.6 % Critically low 36.0-48.0 [facility] Comment on above: Performed By: #### U RCX #### [facility] [address] [place] [address] Dr. Caitlin Martinez Hemoglobin (Bld) [Mass/Vol] 9.7 g/dL Critically low 12.0-16.0 [facility] Comment on above: Performed By: #### U RCX #### [facility] [address] [place] [address] Dr. Caitlin Martinez IG # 0.15 10e3/ul Critically high 0.00-0.03 [facility] Comment on above: Performed By: #### U RCX #### [facility] [address] [place] [address] Dr. Caitlin Martinez IG % 1.3 % Critically high 0.0-0.5 [facility] Comment on above: Performed By: #### U RCX #### [facility] [address] [place] [address] Dr. Caitlin Martinez LYMPH # 2.8 103/ul Normal 1.2-3.8 [facility] Comment on above: Performed By: #### U RCX #### [facility] [address] [address] [address] Caitlin Martinez Lymphocytes/100 WBC (Bld) 24.8 % Normal 20.5-60.0 [facility] Comment on above: Performed By: #### U RCX #### [facility] [address] [address] [address] Caitlin Martinez MANUAL DIFF REQ NO Normal [facility] Comment on above: Performed By: #### U RCX #### [facility] [address] [address] [address] Caitlin Martinez MCH (RBC) [Entitic mass] 26.6 pg Critically low 26.7-34.0 [facility] Comment on above: Performed By: #### U RCX #### [facility] [address] [place] [address] Dr. Caitlin Martinez MCHC (RBC) [Mass/Vol] 31.7 g/dL Normal 29.9-35.2 [facility] Comment on above: Performed By: #### U RCX #### [facility] [address] [place] [address] Dr. Caitlin Martinez MCV (RBC) [Entitic vol] 83.8 fL Normal 81.0-99.0 [facility] Comment on above: Performed By: #### U RCX #### [facility] [address] [place] [address] Dr. Caitlin Martinez MONO # 1.0 103/ul Critically high 0.3-0.8 [facility] Comment on above: Performed By: #### U RCX #### [facility] [address] [place] [address] Dr. Caitlin Martinez Monocytes/100 WBC (Bld) 8.7 % Normal 1.7-12.0 [facility] Comment on above: Performed By: #### U RCX #### [facility] [address] [place] [address] Dr. Caitlin Martinez NEUT # 7.0 103/ul Critically high 1.4-6.5 [facility] Comment on above: Performed By: #### U RCX #### [facility] [address] [address] [address] Caitlin Martinez Neutrophils/100 WBC (Bld) 62.2 % Normal 43.0-75.0 [facility] Comment on above: Performed By: #### U RCX #### [facility] [address] [address] [address] Caitlin Martinez Platelet mean volume (Bld) [Entitic vol] 9.0 fL Critically low 9.5-13.5 [facility] Comment on above: Performed By: #### U RCX #### [facility] [address] [address] [address] Caitlin Martinez PLT 373 103/ul Normal 150-450 [facility] Comment on above: Performed By: #### U RCX #### [facility] [address] [place] [address] Dr. Caitlin Martinez RBC 3.65 106/ul Critically low 4.20-5.40 [facility] Comment on above: Performed By: #### U RCX #### [facility] [address] [address] [address] Caitlin Martinez WBC 11.3 103/ul Critically high 4.0-11.0 [facility] Comment on above: Performed By: #### U RCX #### [facility] [address] [place] [address] Dr. Caitlin Martinez Covid-19 PCR ([facility]on 01-16 SARS-CoV-2 (COVID-19) RNA JONATAN+probe Ql (Unsp spec) Not detected Normal NOT DETECTED [facility] Comment on above: Result Comment: When [...] for this test is supported by the [place] [place] of Health and Human Service's declaration that [...] By: #### C BC #### [facility] [address] [place] [address] Dr. Caitlin Martinez DIRECT COOMBSon 02-08-2022 DIRECT EDWINA Negative Normal [facility] Comment on above: Performed By: #### D IRCMB, ABID #### [facility] [address] [place] [address] Dr. Caitlin Martinez DRUG SCREEN RAPID (URINE)on 02-08-2022 AMP Negative Normal NEGATIVE [facility] Comment on above: Performed By: #### C BC #### [facility] [address] [place] [address] Dr. Caitlin Martinez BAR Negative Normal NEGATIVE [facility] Comment on above: Performed By: #### C BC #### [facility] [address] [place] [address] Dr. Caitlin Martinez BUP Negative Normal NEGATIVE [facility] Comment on above: Performed By: #### C BC #### [facility] [address] [place] [address] Dr. Caitlin Martinez BZO Negative Normal NEGATIVE [facility] Comment on above: Performed By: #### C BC #### [facility] [address] [place] [address] Dr. Caitlin Martinez JEANNA Negative Normal NEGATIVE [facility] Comment on above: Performed By: #### C BC #### [facility] [address] [place] [address] Dr. Caitlin Martinez CUT-OFFS SEE BELOW Normal [facility] Comment on above: Result Comment: AMP [...] By: #### C BC #### [facility] [address] [place] [address] Dr. Caitlin Martinez DRUG CUT HEADER DRUG CLASS TEST SYSTEM CUT-OFF CONCENTRATIONS ARE FOLLOWS: Normal [facility] Comment on above: Performed By: #### C BC #### [facility] [address] [place] [address] Dr. Caitlin Martinez mAMP Negative Normal NEGATIVE [facility] Comment on above: Performed By: #### C BC #### [facility] [address] [place] [address] Dr. Caitlin Martinez MTD Negative Normal NEGATIVE [facility] Comment on above: Performed By: #### C BC #### [facility] [address] [place] [address] Dr. Caitlin Martinez OPI Negative Normal NEGATIVE [facility] Comment on above: Performed By: #### C BC #### [facility] [address] [place] [address] Dr. Caitlin Martinez OXY Negative Normal NEGATIVE [facility] Comment on above: Performed By: #### C BC #### [facility] [address] [place] [address] Dr. Caitlin Martinez PCP Negative Normal NEGATIVE [facility] Comment on above: Performed By: #### C BC #### [facility] [address] [place] [address] Dr. Caitlin Martinez PPX Negative Normal NEGATIVE [facility] Comment on above: Performed By: #### C BC #### [facility] [address] [place] [address] Dr. Caitlin Martinez TCA Negative Normal NEGATIVE [facility] Comment on above: Performed By: #### C BC #### [facility] [address] [place] [address] Dr. Caitlin Martinez THC Negative Normal NEGATIVE [facility] Comment on above: Performed By: #### C BC #### [facility] [address] [place] [address] Dr. Caitlin Martinez TYPE AND SCREENon 02-08-2022 TYPE AND SCREEN Negative Normal [facility] Comment on above: Performed By: #### I HORACIO #### [facility] [address] [place] [address] Dr. Caitlin Martinez US PREG BIOPHY W [...] Date: 2022-02-05 16:28 Normal [facility] AMNISUREon 01-25-2022 AMNISURE Negative Normal NEGATIVE [facility] Comment on above: Performed By: #### A MNI #### [facility] [address] [place] [address] Dr. Caitlin Martinez CULTURE URINEon 01-25-2022 CULTURE URINE Culture Observations : No growth Normal [facility] Comment on above: Performed By: #### U RCX #### [facility] [address] [place] [address] Dr. Caitlin Martinez UA (CLEAN/CATCH) SOFTWARE SUPPORT ENGINEER/MICRO I F IND.on 01-25-2022 Bilirubin Ql (U) Negative Normal NEGATIVE [facility] Comment on above: Performed By: #### C VDTBH #### [facility] [address] [place] [address] Dr. Caitlin Martinez Clarity (U) SL CLOUDY Abnormal CLEAR [facility] Comment on above: Performed By: #### C VDTBH #### [facility] [address] [address] [address] Caitlin Martinez Color (U) LT. YELLOW Normal YELLOW [facility] Comment on above: Performed By: #### C VDTBH #### [facility] [address] [place] [address] Dr. Caitlin Martinez Glucose Ql (U) Negative Normal NEGATIVE [facility] Comment on above: Performed By: #### C VDTBH #### [facility] [address] [address] [address] Caitlin Martinez Hemoglobin Ql (U) TRACE-INTACT Abnormal NEGATIVE [facility] Comment on above: Performed By: #### C VDTBH #### [facility] [address] [place] [address] Dr. Caitlin Martinez Ketones Ql (U) Negative Normal NEGATIVE [facility] Comment on above: Performed By: #### C VDTBH #### [facility] [address] [place] [address] Dr. Caitlin Martinez LEUKOCYTES TRACE Abnormal NEGATIVE [facility] Comment on above: Performed By: #### C VDTBH #### [facility] [address] [place] [address] Dr. Caitlin Martinez Nitrite Ql (U) Negative Normal NEGATIVE [facility] Comment on above: Performed By: #### C VDTBH #### [facility] [address] [place] [address] Dr. Caitlin Martinez pH (U) 6.5 [pH] Normal 5-9 [facility] Comment on above: Performed By: #### C VDTBH #### [facility] [address] [place] [address] Dr. Caitlin Martinez SPEC GRAVITY 1.020 Normal 1.005-<=1.025 [facility] Comment on above: Performed By: #### C VDTBH #### [facility] [address] [place] [address] Dr. Caitlin Martinez UA PROTEIN Negative Normal NEGATIVE/ TRACE [facility] Comment on above: Performed By: #### C VDTBH #### [facility] [address] [place] [address] Dr. Caitlin Martinez UR MICRO IND INDICATED Normal [facility] Comment on above: Performed By: #### C VDTBH #### [facility] [address] [place] [address] Dr. Caitlin Martinez Urobilinogen Qn (U) 0.2 {Barbara'U}/dL Normal 0.2 - 1. 0 [facility] Comment on above: Performed By: #### C VDTBH #### [facility] [address] [place] [address] Dr. Caitlin Martinez URINE MICROSCOPIC ONLYon BACTERIA MODERATE Abnormal NONE SEEN [facility] Comment on above: Performed By: #### C VDTBH #### [facility] [address] [place] [address] Dr. Caitlin Martinez Bacteria identified Cx Nom (U) INDICATED Normal [facility] Comment on above: Performed By: #### C VDTBH #### [facility] [address] [place] [address] Dr. Caitlin Martinez CAST NONE SEEN Normal NONE SEEN [facility] Comment on above: Performed By: #### C VDTBH #### [facility] [address] [place] [address] Dr. Caitlin Martinez Crystals LM Nom (Urine sed) NONE SEEN Normal NONE SEEN [facility] Comment on above: Performed By: #### C VDTBH #### [facility] [address] [place] [address] Dr. Caitlin Martinez Epithelial cells LM Ql (Urine sed) FEW Abnormal NONE SEEN /RARE [facility] Comment on above: Performed By: #### C VDTBH #### [facility] [address] [place] [address] Dr. Caitlin Martinez MUCOUS TRACE Abnormal NONE SEEN [facility] Comment on above: Performed By: #### C VDTBH #### [facility] [address] [place] [address] Dr. Caitlin Martinez RBC 2-5 Abnormal 0-2 [facility] Comment on above: Performed By: #### C VDTBH #### [facility] [address] [place] [address] Dr. Caitlin Martinez WBC 0-2 Abnormal NONE SEEN [facility] Comment on above: Performed By: #### C VDTBH #### [facility] [address] [place] [address] Dr. Caitlin Martinez AMYLASEon 01-16-2022 Amylase [Catalytic activity/Vol] 49 U/L Normal 25-115 [facility] Comment on above: Performed By: #### C VDTBH #### [facility] [address] [place] [address] Dr. Caitlin Martinez BUNon 01-16-2022 Urea nitrogen [Mass/Vol] 3.0 mg/dL Critically low 7.0-18.0 [facility] Comment on above: Performed By: #### C BC #### [facility] [address] [place] [address] Dr. Caitlin Martinez CBC AUTO DIFFon 01-16-2022 BASO # 0.1 103/ul Normal 0.0-0.1 [facility] Comment on above: Performed By: #### U RCX #### [facility] [address] [place] [address] Dr. Caitlin Martinez Basophils/100 WBC (Bld) 0.6 % Normal 0.2-2.0 [facility] Comment on above: Performed By: #### U RCX #### [facility] [address] [place] [address] Dr. Caitlin Martinez EO # 0.3 103/ul Normal 0.0-0.7 [facility] Comment on above: Performed By: #### U RCX #### [facility] [address] [place] [address] Dr. Caitlin Martinez Eosinophils/100 WBC (Bld) 2.6 % Normal 0.9-7.0 [facility] Comment on above: Performed By: #### U RCX #### [facility] [address] [place] [address] Dr. Caitlin Martinez Erythrocyte distribution width (RBC) [Ratio] 14.4 % Normal 11.0-15.0 [facility] Comment on above: Performed By: #### U RCX #### [facility] [address] [address] [address] Caitlin Martinez Hematocrit (Bld) [Volume fraction] 28.4 % Critically low 36.0-48.0 [facility] Comment on above: Performed By: #### U RCX #### [facility] [address] [address] [address] Caitlin Martinez Hemoglobin (Bld) [Mass/Vol] 9.0 g/dL Critically low 12.0-16.0 [facility] Comment on above: Performed By: #### U RCX #### [facility] [address] [place] [address] Dr. Caitlin Martinez IG # 0.11 10e3/ul Critically high 0.00-0.03 [facility] Comment on above: Performed By: #### U RCX #### [facility] [address] [place] [address] Dr. Caitlin Martinez IG % 1.1 % Critically high 0.0-0.5 [facility] Comment on above: Performed By: #### U RCX #### [facility] [address] [place] [address] Dr. Caitlin Martinez LYMPH # 2.2 103/ul Normal 1.2-3.8 [facility] Comment on above: Performed By: #### U RCX #### [facility] [address] [place] [address] Dr. Caitlin Martinez Lymphocytes/100 WBC (Bld) 21.0 % Normal 20.5-60.0 [facility] Comment on above: Performed By: #### U RCX #### [facility] [address] [place] [address] Dr. Caitlin Martinez MANUAL DIFF REQ NO Normal [facility] Comment on above: Performed By: #### U RCX #### [facility] [address] [place] [address] Dr. Caitlin Martinez MCH (RBC) [Entitic mass] 28.2 pg Normal 26.7-34.0 [facility] Comment on above: Performed By: #### U RCX #### [facility] [address] [address] [address] Caitlin Martinez MCHC (RBC) [Mass/Vol] 31.7 g/dL Normal 29.9-35.2 [facility] Comment on above: Performed By: #### U RCX #### [facility] [address] [address] [address] Caitlin Martinez MCV (RBC) [Entitic vol] 89.0 fL Normal 81.0-99.0 [facility] Comment on above: Performed By: #### U RCX #### [facility] [address] [address] [address] Caitlin Martinez MONO # 0.9 103/ul Critically high 0.3-0.8 [facility] Comment on above: Performed By: #### U RCX #### [facility] [address] [address] [address] Caitlin Martinez Monocytes/100 WBC (Bld) 8.9 % Normal 1.7-12.0 [facility] Comment on above: Performed By: #### U RCX #### [facility] [address] [address] [address] Caitlin Martinez NEUT # 6.8 103/ul Critically high 1.4-6.5 [facility] Comment on above: Performed By: #### U RCX #### [facility] [address] [address] [address] Caitlin Martinez Neutrophils/100 WBC (Bld) 65.8 % Normal 43.0-75.0 [facility] Comment on above: Performed By: #### U RCX #### [facility] [address] [address] [address] Caitlin Martinez Platelet mean volume (Bld) [Entitic vol] 8.6 fL Critically low 9.5-13.5 [facility] Comment on above: Performed By: #### U RCX #### [facility] [address] [address] [address] Caitlin Martinez PLT 322 103/ul Normal 150-450 [facility] Comment on above: Performed By: #### U RCX #### [facility] [address] [address] [address] Caitlin Martinez RBC 3.19 106/ul Critically low 4.20-5.40 [facility] Comment on above: Performed By: #### U RCX #### [facility] [address] [address] [address] Caitlin Martinez WBC 10.3 103/ul Normal 4.0-11.0 [facility] Comment on above: Performed By: #### U RCX #### [facility] [address] [address] [address] Caitlin Martinez CREATININEon 01-16-2022 Creatinine [Mass/Vol] 0.55 mg/dL Normal 0.55-1.02 [facility] Comment on above: Performed By: #### C VDTBH #### [facility] [address] [address] [address] Caitlin Martinez EGFR-AF WELSH >60 Normal >=60 [facility] Comment on above: Performed By: #### C VDTBH #### [facility] [address] [address] [address] Caitlin Martinez EGFR-NON AF WELSH >60 Normal >=60 [facility] Comment on above: Performed By: #### C VDTBH #### [facility] [address] [address] [address] Caitlin Martinez ELECTROLYTESon 01-16-2022 Anion gap [Moles/Vol] 13.6 mmol/L Normal [facility] Comment on above: Performed By: #### C VDTBH #### [facility] [address] [address] [address] Caitlin Martinez Chloride [Moles/Vol] 106 mmol/L Normal 98-107 [facility] Comment on above: Performed By: #### C VDTBH #### [facility] [address] [address] [address] Caitlin Martinez CO2 [Moles/Vol] 22.9 mmol/L Normal 21.0-32.0 [facility] Comment on above: Performed By: #### C VDTBH #### [facility] [address] [place] [address] Dr. Caitlin Martinez Potassium [Moles/Vol] 3.5 mmol/L Normal 3.5-5.1 [facility] Comment on above: Performed By: #### C VDTBH #### [facility] [address] [place] [address] Dr. Caitlin Martinez Sodium [Moles/Vol] 139 mmol/L Normal 136-145 [facility] Comment on above: Performed By: #### C VDTBH #### [facility] [address] [place] [address] Dr. Caitlin Martinez LIPASEon 01-16-2022 Lipase [Catalytic activity/Vol] 66.0 U/L Critically low 73.0-393.0 [facility] Comment on above: Performed By: #### C BC #### [facility] [address] [place] [address] Dr. Caitlin Martinez SGOTon 01-16-2022 AST [Catalytic activity/Vol] 12 U/L Critically low 15-37 [facility] Comment on above: Performed By: #### C VDTBH #### [facility] [address] [place] [address] Dr. Caitlin Martinez SGPTon 01-16-2022 ALT [Catalytic activity/Vol] 9 U/L Critically low 14-59 [facility] Comment on above: Performed By: #### C VDTBH #### [facility] [address] [place] [address] Dr. Caitlin Martinez CBC AUTO DIFFon 01-15-2022 BASO # 0.1 103/ul Normal 0.0-0.1 [facility] Comment on above: Performed By: #### C VDTBH #### [facility] [address] [place] [address] Dr. Caitlin Martinez Basophils/100 WBC (Bld) 0.4 % Normal 0.2-2.0 [facility] Comment on above: Performed By: #### C VDTBH #### [facility] [address] [place] [address] Dr. Caitlin Martinez EO # 0.2 103/ul Normal 0.0-0.7 [facility] Comment on above: Performed By: #### C VDTBH #### [facility] [address] [place] [address] Dr. Caitlin Martinez Eosinophils/100 WBC (Bld) 1.4 % Normal 0.9-7.0 [facility] Comment on above: Performed By: #### C VDTBH #### [facility] [address] [place] [address] Dr. Caitlin Martinez Erythrocyte distribution width (RBC) [Ratio] 14.1 % Normal 11.0-15.0 [facility] Comment on above: Performed By: #### C VDTBH #### [facility] [address] [place] [address] Dr. Caitlin Martinez Hematocrit (Bld) [Volume fraction] 28.4 % Critically low 36.0-48.0 [facility] Comment on above: Performed By: #### C VDTBH #### [facility] [address] [place] [address] Dr. Caitlin Martinez Hemoglobin (Bld) [Mass/Vol] 9.0 g/dL Critically low 12.0-16.0 [facility] Comment on above: Performed By: #### C VDTBH #### [facility] [address] [place] [address] Dr. Caitlin Martinez IG # 0.18 10e3/ul Critically high 0.00-0.03 [facility] Comment on above: Performed By: #### C VDTBH #### [facility] [address] [place] [address] Dr. Caitlin Martinez IG % 1.3 % Critically high 0.0-0.5 [facility] Comment on above: Performed By: #### C VDTBH #### [facility] [address] [place] [address] Dr. Caitlin Martinez LYMPH # 2.4 103/ul Normal 1.2-3.8 [facility] Comment on above: Performed By: #### C VDTBH #### [facility] [address] [place] [address] Dr. Caitlin Martinez Lymphocytes/100 WBC (Bld) 16.8 % Critically low 20.5-60.0 [facility] Comment on above: Performed By: #### C VDTBH #### [facility] [address] [place] [address] Dr. Caitlin Martinez MANUAL DIFF REQ NO Normal [facility] Comment on above: Performed By: #### C VDTBH #### [facility] [address] [place] [address] Dr. Caitlin Martinez MCH (RBC) [Entitic mass] 27.9 pg Normal 26.7-34.0 [facility] Comment on above: Performed By: #### C VDTBH #### [facility] [address] [place] [address] Dr. Caitlin Martinez MCHC (RBC) [Mass/Vol] 31.7 g/dL Normal 29.9-35.2 [facility] Comment on above: Performed By: #### C VDTBH #### [facility] [address] [place] [address] Dr. Caitlin Martinez MCV (RBC) [Entitic vol] 87.9 fL Normal 81.0-99.0 [facility] Comment on above: Performed By: #### C VDTBH #### [facility] [address] [place] [address] Dr. Caitlin Martinez MONO # 0.9 103/ul Critically high 0.3-0.8 [facility] Comment on above: Performed By: #### C VDTBH #### [facility] [address] [place] [address] Dr. Caitlin Martinez Monocytes/100 WBC (Bld) 6.7 % Normal 1.7-12.0 [facility] Comment on above: Performed By: #### C VDTBH #### [facility] [address] [place] [address] Dr. Caitlin Martinez NEUT # 10.3 103/ul Critically high 1.4-6.5 [facility] Comment on above: Performed By: #### C VDTBH #### [facility] [address] [address] [address] Caitlin Martinez Neutrophils/100 WBC (Bld) 73.4 % Normal 43.0-75.0 [facility] Comment on above: Performed By: #### C VDTBH #### [facility] [address] [address] [address] Caitlin Martinez Platelet mean volume (Bld) [Entitic vol] 9.0 fL Critically low 9.5-13.5 [facility] Comment on above: Performed By: #### C VDTBH #### [facility] [address] [address] [address] Caitlin Martinez PLT 318 103/ul Normal 150-450 [facility] Comment on above: Performed By: #### C VDTBH #### [facility] [address] [address] [address] Caitlin Martinez RBC 3.23 106/ul Critically low 4.20-5.40 [facility] Comment on above: Performed By: #### C VDTBH #### [facility] [address] [address] [address] Caitlin Martinez WBC 14.0 103/ul Critically high 4.0-11.0 [facility] Comment on above: Performed By: #### C VDTBH #### [facility] [address] [address] [address] ABD/PELVIS WO CONon [...] Date: 2022-01-15 16:31 Normal [facility] CULTURE URINEon 01-15-2022 CULTURE URINE Culture Observations : LIGHT GROWTH OF MIXED GENITAL COSME. NO POTENTIAL PATHOGENS SEEN. Normal [facility] Comment on above: Performed By: #### U RCX #### [facility] [address] [place] [address] Dr. Caitlin Martinez UA (CLEAN/CATCH) SOFTWARE SUPPORT ENGINEER/MICRO I F IND.on 01-15-2022 Bilirubin Ql (U) Negative Normal NEGATIVE [facility] Comment on above: Performed By: #### C BC #### [facility] [address] [place] [address] Dr. Caitlin Martinez Clarity (U) CLEAR Normal CLEAR [facility] Comment on above: Performed By: #### C BC #### [facility] [address] [place] [address] Dr. Caitlin Martinez Color (U) LT. YELLOW Normal YELLOW [facility] Comment on above: Performed By: #### C BC #### [facility] [address] [place] [address] Dr. Caitlin Martinez Glucose Ql (U) Negative Normal NEGATIVE [facility] Comment on above: Performed By: #### C BC #### [facility] [address] [place] [address] Dr. Caitlin Martinez Hemoglobin Ql (U) Negative Normal NEGATIVE [facility] Comment on above: Performed By: #### C BC #### [facility] [address] [place] [address] Dr. Caitlin Martinez Ketones Ql (U) Negative Normal NEGATIVE [facility] Comment on above: Performed By: #### C BC #### [facility] [address] [place] [address] Dr. Caitlin Martinez LEUKOCYTES TRACE Abnormal NEGATIVE [facility] Comment on above: Performed By: #### C BC #### [facility] [address] [place] [address] Dr. Caitlin Martinze Nitrite Ql (U) Negative Normal NEGATIVE [facility] Comment on above: Performed By: #### C BC #### [facility] [address] [place] [address] Dr. Caitlin Martinez pH (U) 7.0 [pH] Normal 5-9 [facility] Comment on above: Performed By: #### C BC #### [facility] [address] [place] [address] Dr. Caitlin Martinez SPEC GRAVITY 1.010 Normal 1.005-<=1.025 [facility] Comment on above: Performed By: #### C BC #### [facility] [address] [place] [address] Dr. Caitlin Martinez UA PROTEIN Negative Normal NEGATIVE/ TRACE [facility] Comment on above: Performed By: #### C BC #### [facility] [address] [place] [address] Dr. Caitlin Martinez UR MICRO IND INDICATED Normal [facility] Comment on above: Performed By: #### C BC #### [facility] [address] [place] [address] Dr. Caitlin Martinez Urobilinogen Qn (U) 0.2 {Barbara'U}/dL Normal 0.2 - 1. 0 [facility] Comment on above: Performed By: #### C BC #### [facility] [address] [place] [address] Dr. Caitlin Martinez URINE MICROSCOPIC ONLYon BACTERIA MODERATE Abnormal NONE SEEN [facility] Comment on above: Performed By: #### C BC #### [facility] [address] [place] [address] Dr. Caitlin Martinez Bacteria identified Cx Nom (U) INDICATED Normal [facility] Comment on above: Performed By: #### C BC #### [facility] [facility] [address] [place] [address] Dr. Caitlin Martinez CAST NONE SEEN Normal NONE SEEN [facility] Comment on above: Performed By: #### C BC #### [facility] [address] [place] [address] Dr. Caitlin Martinez Crystals LM Nom (Urine sed) NONE SEEN Normal NONE SEEN [facility] Comment on above: Performed By: #### C BC #### [facility] [address] [place] [address] Dr. Caitlin Martinez Epithelial cells LM Ql (Urine sed) MODERATE Abnormal NONE SEEN /RARE [facility] Comment on above: Performed By: #### C BC #### [facility] [address] [place] [address] Dr. Caitlin Martinez MUCOUS NONE SEEN Normal NONE SEEN [facility] Comment on above: Performed By: #### C BC #### [facility] [address] [place] [address] Dr. Caitlin Martinez RBC NONE SEEN Abnormal 0-2 [facility] Comment on above: Performed By: #### C BC #### [facility] [address] [place] [address] Dr. Caitlin Martinez WBC 2-5 Abnormal NONE SEEN [facility] Comment on above: Performed By: #### C BC #### [facility] [address] [place] [address] Dr. Caitlin Martinez US APPENDIXon 01-15-2022 US [...] Date: 2022-01-15 14:14 Normal [facility] US PREG GROWTHon 01-15-2022 US PREG [...] Date: 2022-01-15 10:59 Normal [facility] US PREG PLACENTAon US PREG PLACENTA [...] DAVID BLACKMON Date: 2022-01-15 10:57 Normal [facility] UA (CLEAN/CATCH) SOFTWARE SUPPORT ENGINEER/MICRO I F IND.on 12-29-2021 Bilirubin Ql (U) Negative Normal NEGATIVE [facility] Comment on above: Performed By: #### C BC #### [facility] [address] [place] [address] Dr. Caitlin Martinez Clarity (U) CLEAR Normal CLEAR [facility] Comment on above: Performed By: #### C BC #### [facility] [address] [place], [place] [address] Dr. Caitlin Martinez Color (U) LT. YELLOW Normal YELLOW [facility] Comment on above: Performed By: #### C BC #### [facility] [address] [address] [address] Caitlin Martinez Glucose Ql (U) Negative Normal NEGATIVE [facility] Comment on above: Performed By: #### C BC #### [facility] [address] [place] [address] Dr. Caitlin Martinez Hemoglobin Ql (U) Negative Normal NEGATIVE [facility] Comment on above: Performed By: #### C BC #### [facility] [address] [address] [address] Caitlin Martinez Ketones Ql (U) Negative Normal NEGATIVE [facility] Comment on above: Performed By: #### C BC #### [facility] [address] [place] [address] Dr. Caitlin Martinez LEUKOCYTES Negative Normal NEGATIVE [facility] Comment on above: Performed By: #### C BC #### [facility] [address] [place] [address] Dr. Caitlin Martinez Nitrite Ql (U) Negative Normal NEGATIVE [facility] Comment on above: Performed By: #### C BC #### [facility] [address] [place] [address] Dr. Caitlin Martinez pH (U) 6.5 [pH] Normal 5-9 [facility] Comment on above: Performed By: #### C BC #### [facility] [address] [place] [address] Dr. Caitlin Martinez SPEC GRAVITY 1.020 Normal 1.005-<=1.025 [facility] Comment on above: Performed By: #### C BC #### [facility] [address] [place] [address] Dr. Caitlin Martinez UA PROTEIN Negative Normal NEGATIVE/ TRACE [facility] Comment on above: Performed By: #### C BC #### [facility] [address] [place] [address] Dr. Caitlin Martinez UR MICRO IND NOT INDICATED Normal [facility] Comment on above: Performed By: #### C BC #### [facility] [address] [place] [address] Dr. Caitlin Martinez Urobilinogen Qn (U) 1.0 {Barbara'U}/dL Normal 0.2 - 1. 0 [facility] Comment on above: Performed By: #### C BC #### [facility] [address] [place] [address] Dr. Caitlin Martinez US PREG CERVICAL LENGTHon [...] Date: 2021-12-29 15:53 Normal [facility] UA (CLEAN/CATCH) SOFTWARE SUPPORT ENGINEER/MICRO I F IND.on 12-18-2021 Bilirubin Ql (U) Negative Normal NEGATIVE [facility] Comment on above: Performed By: #### C BC #### [facility] [address] [place] [address] Dr. Caitlin Martinez Clarity (U) CLEAR Normal CLEAR [facility] Comment on above: Performed By: #### C BC #### [facility] [address] [place] [address] Dr. Caitlin Martinez Color (U) YELLOW Normal YELLOW [facility] Comment on above: Performed By: #### C BC #### [facility] [address] [place] [address] Dr. Caitlin Martinez Glucose Ql (U) Negative Normal NEGATIVE [facility] Comment on above: Performed By: #### C BC #### [facility] [address] [place] [address] Dr. Caitlin Martinez Hemoglobin Ql (U) Negative Normal NEGATIVE [facility] Comment on above: Performed By: #### C BC #### [facility] [address] [place] [address] Dr. Caitlin Martinez Ketones Ql (U) TRACE Abnormal NEGATIVE [facility] Comment on above: Performed By: #### C BC #### [facility] [address] [place] [address] Dr. Caitlin Martinez LEUKOCYTES Negative Normal NEGATIVE [facility] Comment on above: Performed By: #### C BC #### [facility] [address] [place] [address] Dr. Caitlin Martinez Nitrite Ql (U) Negative Normal NEGATIVE [facility] Comment on above: Performed By: #### C BC #### [facility] [address] [place] [address] Dr. Caitlin Martinez pH (U) 6.0 [pH] Normal 5-9 [facility] Comment on above: Performed By: #### C BC #### [facility] [address] [place] [address] Dr. Caitlin Martinez SPEC GRAVITY 1.025 Normal 1.005-<=1.025 [facility] Comment on above: Performed By: #### C BC #### [facility] [address] [place] [address] Dr. Caitlin Martinez UA PROTEIN Negative Normal NEGATIVE/ TRACE [facility] Comment on above: Performed By: #### C BC #### [facility] [address] [place] [address] Dr. Caitlin Martinez UR MICRO IND NOT INDICATED Normal [facility] Comment on above: Performed By: #### C BC #### [facility] [address] [place] [address] Dr. Caitlin Martinez Urobilinogen Qn (U) 4 {Barbara'U}/dL Abnormal 0.2 - 1.0 [facility] Comment on above: Performed By: #### C BC #### [facility] [address] [place] [address] Dr. Caitlin Martinez RHOGAMon 11-28-2021 RHOGAM Status Information Issued Quantity 1 Product ID Rh Immune Globulin Lot Number [id number] Issue Date/Time [id number] Normal [facility] Comment on above: Performed By: #### I HORACIO #### [facility] [address] [place] [address] Dr. Caitlin Martinez TYPE AND SCREENon 11-27-2021 TYPE AND SCREEN Negative Normal [facility] Comment on above: Performed By: #### T NS #### [facility] [address] [place] [address] Dr. Caitlin Martinez CULTURE URINEon 11-23-2021 CULTURE URINE Culture Observations : No growth Normal [facility] Comment on above: Performed By: #### I HORACIO #### [facility] [address] [place] [address] Dr. Caitlin Martinez UA (CLEAN/CATCH) SOFTWARE SUPPORT ENGINEER/MICRO I F IND.on 11-23-2021 Bilirubin Ql (U) Negative Normal NEGATIVE [facility] Comment on above: Performed By: #### U RCX #### [facility] [address] [place] [address] Dr. Caitlin Martinez Clarity (U) CLEAR Normal CLEAR [facility] Comment on above: Performed By: #### U RCX #### [facility] [address] [place] [address] Dr. Caitlin Martinez Color (U) LT. YELLOW Normal YELLOW [facility] Comment on above: Performed By: #### U RCX #### [facility] [address] [place] [address] Dr. Caitlin Martinez Glucose Ql (U) Negative Normal NEGATIVE [facility] Comment on above: Performed By: #### U RCX #### [facility] [address] [place] [address] Dr. Caitlin Martinez Hemoglobin Ql (U) Negative Normal NEGATIVE [facility] Comment on above: Performed By: #### U RCX #### [facility] [address] [place] [address] Dr. Caitlin Martinez Ketones Ql (U) Negative Normal NEGATIVE [facility] Comment on above: Performed By: #### U RCX #### [facility] [address] [place] [address] Dr. Caitlin Martinez LEUKOCYTES SMALL Abnormal NEGATIVE [facility] Comment on above: Performed By: #### U RCX #### [facility] [address] [place] [address] Dr. Caitlin Martinez Nitrite Ql (U) Negative Normal NEGATIVE [facility] Comment on above: Performed By: #### U RCX #### [facility] [address] [place] [address] Dr. Caitlin Martinez pH (U) 6.5 [pH] Normal 5-9 [facility] Comment on above: Performed By: #### U RCX #### [facility] [address] [place] [address] Dr. Caitlin Matrinez SPEC GRAVITY 1.010 Normal 1.005-<=1.025 [facility] Comment on above: Performed By: #### U RCX #### [facility] [address] [place] [address] Dr. Caitlin Martinez UA PROTEIN Negative Normal NEGATIVE/ TRACE [facility] Comment on above: Performed By: #### U RCX #### [facility] [address] [place] [address] Dr. Caitlin Martinez UR MICRO IND INDICATED Normal [facility] Comment on above: Performed By: #### U RCX #### [facility] [address] [place] [address] Dr. Caitlin Martinez Urobilinogen Qn (U) 0.2 {Barbara'U}/dL Normal 0.2 - 1. 0 [facility] Comment on above: Performed By: #### U RCX #### [facility] [address] [place] [address] Dr. Caitlin Martinez URINE MICROSCOPIC ONLYon BACTERIA TRACE Abnormal NONE SEEN [facility] Comment on above: Performed By: #### U RCX #### [facility] [address] [place] [address] Dr. Caitlin Martinez Bacteria identified Cx Nom (U) INDICATED Normal [facility] Comment on above: Performed By: #### U RCX #### [facility] [address] [place] [address] Dr. Caitlin Martinez CAST SEEN Abnormal NONE SEEN [facility] Comment on above: Performed By: #### U RCX #### [facility] [address] [place] [address] Dr. Catilin Martinez Crystals LM Nom (Urine sed) SEEN Abnormal NONE SEEN [facility] Comment on above: Performed By: #### U RCX #### [facility] [address] [place] [address] Dr. Caitlin Martinez Epithelial cells LM Ql (Urine sed) RARE Normal NONE SEEN /RARE [facility] Comment on above: Performed By: #### U RCX #### [facility] [address] [place] [address] Dr. Caitlin Martinez MUCOUS TRACE Abnormal NONE SEEN [facility] Comment on above: Performed By: #### U RCX #### [facility] [address] [place] [address] Dr. Caitlin Martinez RBC 0-2 Normal 0-2 [facility] Comment on above: Performed By: #### U RCX #### [facility] [address] [place] [address] Dr. Caitlin Martinez WBC 2-5 Abnormal NONE SEEN [facility] Comment on above: Performed By: #### U RCX #### [facility] [address] [place] [address] Dr. Caitlin Martinez GLUCOSE - 1HRon 11-06-2021 Glucose [Mass/Vol] 131 mg/dL Critically high 74-106 [facility] Comment on above: Performed By: #### I HORACIO #### [facility] [address] [place] [address] Dr. Caitlin Martinez HEMOGRAM AND PLATELon 2021 Hematocrit (Bld) [Volume fraction] 34.2 % Critically low 36.0-48.0 [facility] Comment on above: Performed By: #### C BC #### [facility] [address] [place] [address] Dr. Caitlin Martinez Hemoglobin (Bld) [Mass/Vol] 11.3 g/dL Critically low 12.0-16.0 [facility] Comment on above: Performed By: #### C BC #### [facility] [address] [place] [address] Dr. Caitlin Martinez MCH (RBC) [Entitic mass] 31.7 pg Normal 26.7-34.0 [facility] Comment on above: Performed By: #### C BC #### [facility] [address] [place] [address] Dr. Caitlin Martinez MCHC (RBC) [Mass/Vol] 33.0 g/dL Normal 29.9-35.2 [facility] Comment on above: Performed By: #### C BC #### [facility] [address] [place] [address] Dr. Caitlin Martinez MCV (RBC) [Entitic vol] 96.1 fL Normal 81.0-99.0 [facility] Comment on above: Performed By: #### C BC #### [facility] [address] [place] [address] Dr. Caitlin Martinez PLT 372 103/ul Normal 150-450 [facility] Comment on above: Performed By: #### C BC #### [facility] [address] [place] [address] Dr. Caitlin Martinez RBC 3.56 106/ul Critically low 4.20-5.40 [facility] Comment on above: Performed By: #### C BC #### [facility] [address] [place] [address] Dr. Caitlin Martinez WBC 10.1 103/ul Normal 4.0-11.0 [facility] Comment on above: Performed By: #### C BC #### [facility] [address] [place] [address] Dr. Caitlin Martinez CHLAMYDIA/GONOCOCCUS JONATAN (SW AB/URINE/PAPon 10-31-2021 Chlamydia trachomatis, JONATAN Negative Normal Negative [facility] Comment on above: Performed By: #### C BC #### [facility] [address] [place] [address] Dr. Caitlin Martinez Neisseria gonorrhoeae, JONATAN Negative Normal Negative [facility] Comment on above: Performed By: #### C BC #### [facility] [address] [place] [address] Dr. Caitlin Martinez VAGINITIS/VAGINOSIS DNA PROB Paramjit 10-29-2021 Selena species Negative Normal Negative [facility] Comment on above: Performed By: #### U RCX #### [facility] [address] [address] [address] Caitlin Martinez Gardnerella vaginalis Negative Normal Negative [facility] Comment on above: Performed By: #### U RCX #### [facility] [address] [place] [address] Dr. Caitlin Martinez Trichomonas vaginalis Negative Normal Negative [facility] Comment on above: Performed By: #### U RCX #### [facility] [address] [place] [address] Dr. Caitlin Martinez US PREG INCOMPLETE ANATOMYon [...] Date: 2021-10-26 12:05 Normal [facility] CBC W MANUAL DIFFon 10-25-19 22 ATYPICAL LYMPH # Normal [facility] Comment on above: Performed By: #### U RCX #### [facility] [address] [place] [address] Dr. Caitlin Martinez ATYPICAL LYMPH % Normal [facility] Comment on above: Performed By: #### U RCX #### [facility] [address] [place] [address] Dr. Caitlin Martinez BAND # 0.1 103/ul Normal 0.0-0.3 [facility] Comment on above: Performed By: #### U RCX #### [facility] [address] [place] [address] Dr. Caitlin Martinez BAND % 1 % Normal 0-5 [facility] Comment on above: Performed By: #### U RCX #### [facility] [address] [place] [address] Dr. Caitlin Martinez BASOM # 0.00 103/ul Normal 0.00-0.10 [facility] Comment on above: Performed By: #### U RCX #### [facility] [address] [place] [address] Dr. Caitlin Martinez BASOM % 0.0 % Critically low 0.2-2.0 [facility] Comment on above: Performed By: #### U RCX #### [facility] [address] [place] [address] Dr. Caitlin Martinez BLAST # Normal [facility] Comment on above: Performed By: #### U RCX #### [facility] [address] [place] [address] Dr. Caitlin Martinez BLAST % Normal [facility] Comment on above: Performed By: #### U RCX #### [facility] [address] [place] [address] Dr. Caitlin Martinez CORRECTED WBC Normal 4.0-11.0 [facility] Comment on above: Performed By: #### U RCX #### [facility] [address] [place] [address] Dr. Caitlin Martinez EOS # 0.12 103/ul Normal 0.00-0.70 [facility] Comment on above: Performed By: #### U RCX #### [facility] [address] [place] [address] Dr. Caitlin Martinez EOS% 1.0 % Normal 0.9-7.0 [facility] Comment on above: Performed By: #### U RCX #### [facility] [address] [place] [address] Dr. Caitlin Martinez HCT 31.5 % Critically low 36.0-48.0 [facility] Comment on above: Performed By: #### U RCX #### [facility] [address] [place] [address] Dr. Caitlin Martinez HGB 10.5 g/dl Critically low 12.0-16.0 [facility] Comment on above: Performed By: #### U RCX #### [facility] [address] [place] [address] Dr. Caitlin Martinez LYMPHM # 0.37 103/ul Critically low 1.20-3.80 [facility] Comment on above: Performed By: #### U RCX #### [facility] [address] [place] [address] Dr. Caitlin Martinez LYMPHM% 3.0 % Critically low 20.5-60.0 [facility] Comment on above: Performed By: #### U RCX #### [facility] [address] [place] [address] Dr. Caitlin Martinez MCH 31.8 pg Normal 26.7-34.0 [facility] Comment on above: Performed By: #### U RCX #### [facility] [address] [place] [address] Dr. Caitlin Martinez MCHC 33.3 g/dl Normal 29.9-35.2 [facility] Comment on above: Performed By: #### U RCX #### [facility] [address] [place] [address] Dr. Caitlin Martinez MCV 95.5 fL Normal 81.0-99.0 [facility] Comment on above: Performed By: #### U RCX #### [facility] [address] [place] [address] Dr. Caitlin Martinez METAMYELOCYTE # Normal [facility] Comment on above: Performed By: #### U RCX #### [facility] [address] [place] [address] Dr. Caitlin Martinez METAMYELOCYTE % Normal [facility] Comment on above: Performed By: #### U RCX #### [facility] [address] [place] [address] Dr. Caitlin Martinez MONOM# 0.73 103/ul Normal 0.30-0.80 [facility] Comment on above: Performed By: #### U RCX #### [facility] [address] [place] [address] Dr. Caitlin Martinez MONOM% 6.0 % Normal 1.7-12.0 [facility] Comment on above: Performed By: #### U RCX #### [facility] [address] [address] [address] Caitlin Martinez MPV 9.5 fL Normal 9.5-13.5 [facility] Comment on above: Performed By: #### U RCX #### [facility] [address] [place] [address] Dr. Caitlin Martinez MYELOCYTE # Normal [facility] Comment on above: Performed By: #### U RCX #### [facility] [address] [address] [address] Caitlin Martinez MYELOCYTE % Normal [facility] Comment on above: Performed By: #### U RCX #### [facility] [address] [address] [address] Caitlin Martinez NRBC Normal [facility] Comment on above: Performed By: #### U RCX #### [facility] [address] [place] [address] Dr. Caitlin Martinez PLT 275 103/ul Normal 150-450 [facility] Comment on above: Performed By: #### U RCX #### [facility] [address] [place] [address] Dr. Caitlin Martinez RBC 3.30 106/ul Critically low 4.20-5.40 [facility] Comment on above: Performed By: #### U RCX #### [facility] [address] [place] [address] Dr. Caitlin Martinez RDW 13.6 % Normal 11.0-15.0 [facility] Comment on above: Performed By: #### U RCX #### [facility] [address] [place] [address] Dr. Caitlin Martinez SEG # 10.86 103/ul Critically high 1.40-6.50 [facility] Comment on above: Performed By: #### U RCX #### [facility] [address] [place] [address] Dr. Caitlin Martinez SEG % 89.0 % Critically high 43.0-75.0 [facility] Comment on above: Performed By: #### U RCX #### [facility] [address] [place] [address] Dr. Caitlin Martinez WBC 12.2 103/ul Critically high 4.0-11.0 [facility] Comment on above: Performed By: #### U RCX #### [facility] [address] [place] [address] Dr. Caitlin Martinez ER URINE PROFILEon 2 Bilirubin Ql (U) Negative Normal NEGATIVE [facility] Comment on above: Performed By: #### C VDTBH #### [facility] [address] [place] [address] Dr. Caitlin Martinez Clarity (U) SL CLOUDY Abnormal CLEAR [facility] Comment on above: Performed By: #### C VDTBH #### [facility] [address] [place] [address] Dr. Cailtin Martinez Color (U) YELLOW Normal YELLOW [facility] Comment on above: Performed By: #### C VDTBH #### [facility] [address] [place] [address] Dr. Caitlin Martinez ERUAHNadine A micrscopic examination will be performed if indicated. Normal [facility] Comment on above: Performed By: #### C VDTBH #### [facility] [address] [place] [address] Dr. Caitlin Martinez Glucose Ql (U) Negative Normal NEGATIVE [facility] Comment on above: Performed By: #### C VDTBH #### [facility] [address] [place] [address] Dr. Caitlin Martinez Hemoglobin Ql (U) Negative Normal NEGATIVE [facility] Comment on above: Performed By: #### C VDTBH #### [facility] [address] [place] [address] Dr. Caitlin Martinez Ketones Ql (U) >=80 Abnormal NEGATIVE [facility] Comment on above: Performed By: #### C VDTBH #### [facility] [facility] [address] [place] [address] Dr. Caitlin Martinez LEUKOCYTES Negative Normal NEGATIVE [facility] Comment on above: Performed By: #### C VDTBH #### [facility] [address] [place] [address] Dr. Caitlin Martinez Nitrite Ql (U) Negative Normal NEGATIVE [facility] Comment on above: Performed By: #### C VDTBH #### [facility] [address] [place] [address] Dr. Caitlin Martinez pH (U) 6.0 [pH] Normal 5-9 [facility] Comment on above: Performed By: #### C VDTBH #### [facility] [address] [place] [address] Dr. Caitlin Martinez SPEC GRAVITY 1.020 Normal 1.005-<=1.025 [facility] Comment on above: Performed By: #### C VDTBH #### [facility] [address] [place] [address] Dr. Caitlin Martinez UA PROTEIN Negative Normal NEGATIVE/ TRACE [facility] Comment on above: Performed By: #### C VDTBH #### [facility] [address] [place] [address] Dr. Caitlin Martinez UR MICRO IND NOT INDICATED Normal [facility] Comment on above: Performed By: #### C VDTBH #### [facility] [address] [place] [address] Dr. Caitlin Martinez Urobilinogen Qn (U) 1.0 {Barbara'U}/dL Normal 0.2 - 1. 0 [facility] Comment on above: Performed By: #### C VDTBH #### [facility] [address] [place] [address] Dr. Caitlin Martinez INFLUENZA A AND B AGon 10-24 INFLUBNEG SEE BELOW Normal [facility] Comment on above: Result Comment: Nega tive for Flu B protein antigen. Infection due to Flu B cannot be ruled out. Flu B antigen in the sample may be below the detection limit of the test. Performed By: #### C VDTBH #### [facility] [address] [place] [address] Dr. Caitlin Martinez INFLUENZA A AG Positive Abnormal NEGATIVE SEE COMMENT [facility] Comment on above: Performed By: #### C VDTBH #### [facility] [address] [place] [address] Dr. Caitlin Martinez INFLUENZA B AG Negative Normal NEGATIVE SEE COMMENT [facility] Comment on above: Performed By: #### C VDTBH #### [facility] [address] [place] [address] Dr. Caitlin Martinez INFLUPOSH SEE BELOW Normal [facility] Comment on above: Result Comment: NOTE : Live attenuated influenzae vaccine viruses can cause a positive result for a rapid influenza diagnostic test if administered up to 7 days prior to rapid testing. Performed By: #### C VDTBH #### [facility] [address] [place] [address] Dr. Caitlin Martinez INTERNAL CONTROLS Within Normal Limits Normal Wi thin Normal Limits [facility] Comment on above: Performed By: #### C VDTBH #### [facility] [address] [place] [address] Dr. Caitlin Martinez PROF CHEM 8 (BAS METB)on Anion gap [Moles/Vol] 14.4 mmol/L Normal [facility] Comment on above: Performed By: #### D IRCMB, ABID #### [facility] [address] [place] [address] Dr. Caitlin Martinez Calcium [Mass/Vol] 8.4 mg/dL Critically low 8.5-10.1 [facility] Comment on above: Performed By: #### D IRCMB, ABID #### [facility] [address] [place] [address] Dr. Caitlin Martinez Chloride [Moles/Vol] 101 mmol/L Normal 98-107 [facility] Comment on above: Performed By: #### D IRCMB, ABID #### [facility] [address] [place] [address] Dr. Caitlin Martinez CO2 [Moles/Vol] 19.7 mmol/L Critically low 21.0-32.0 [facility] Comment on above: Performed By: #### D IRCMB, ABID #### [facility] [address] [place] [address] Dr. Caitlin Martinez Creatinine [Mass/Vol] 0.55 mg/dL Normal 0.55-1.02 [facility] Comment on above: Performed By: #### D IRCMB, ABID #### [facility] [address] [place] [address] Dr. Caitlin Martinez EGFR-AF WELSH >60 Normal >=60 [facility] Comment on above: Performed By: #### D IRCMB, ABID #### [facility] [address] [place] [address] Dr. Caitlin Martinez EGFR-NON AF WELSH >60 Normal >=60 [facility] Comment on above: Performed By: #### D IRCMB, ABID #### [facility] [address] [place] [address] Dr. Caitlin Martinez Glucose [Mass/Vol] 91 mg/dL Normal 74-106 [facility] Comment on above: Performed By: #### D IRCMB, ABID #### [facility] [address] [place] [address] Dr. Caitlin Martinez Potassium [Moles/Vol] 3.1 mmol/L Critically low 3.5-5.1 [facility] Comment on above: Performed By: #### D IRCMB, ABID #### [facility] [address] [place] [address] Dr. Caitlin Martinez Sodium [Moles/Vol] 132 mmol/L Critically low 136-145 [facility] Comment on above: Performed By: #### D IRCMB, ABID #### [facility] [address] [place] [address] Dr. Caitlin Martinez Urea nitrogen [Mass/Vol] 7.0 mg/dL Normal 7.0-18.0 [facility] Comment on above: Performed By: #### D IRCMB, ABID #### [facility] [address] [place] [address] Dr. Caitlin Martinez Urea nitrogen/Creatinine [Mass ratio] 12.7 mg/mg Normal [facility] Comment on above: Performed By: #### D IRCMB, ABID #### [facility] [address] [place] [address] Dr. Caitlin Martinez US PREG ANATOMY SINGLEon [...] by: DAVID BLACKMON Date: 2021-09-28 09:17 Normal [facility] CHEMISTRYOrdered By: SYSTEM SYSTEM on 06-21-2021 [place] [address] m[IU]/mL High 1 - 3 mIU/mL [facility] Remisol XR LUMBAR SPINE 2-3 VIEWS (S [...] gas pattern is nonobstructive. There is a wjgteova-ao-sbixe amount of stool burden. IMPRESSION: No malalignment. No acute compression deformity. Ulovhkrn-bv-rbafr amount of stool burden. [employer] Workstation ID: [id number] Dictated by: LUBA GARCÍA on [facility] Mar 05, 2020 4:09:51 PM EDT Transcribed by: KELVIN GUADALUPE on [facility] Mar 05, 2020 4:17:18 PM EDT Finalized by: LUBA GARCÍA on [facility] Mar 05, 2020 7:52:11 PM EDT [facility] Comment on above: Order Comment: Injur y/Trauma or Illness?:Illness/Other How long have you had these symptoms (acute/chronic)?:Chronic Reason for exam?:low back pain History of cancer?:n Surgeries, chemotherapy, or radiation?:n Type of Exam?:Initial Additional signs and symptoms?:fibromyalgia XR Lumbar Spine 2-3 Views (S tandard)on 03-05-2020 No malalignment. No acute compression deformity. Scmfyvbn-vk-muudf amount of stool burden. [employer] Workstation ID: [id number] [facility] EXAMINATION: XR LUMBAR SPINE 2-3 VIEWS (STANDARD) [...] gas pattern is nonobstructive. There is a robxyfdv-vm-juyzk amount of stool burden. [facility] Interface, Rad In Jose Luis Speechq - [...] gas pattern is nonobstructive. There is a ofghwodu-xn-nrwru amount of stool burden. IMPRESSION: No malalignment. No acute compression deformity. Xueajgnv-re-zvkvx amount of stool burden. [employer] Workstation ID: [id number] [facility] CNOVon 10-28-2018 CNOV Office Visit (LOUN ) SANDY GODINEZ ([id number]) 1995 F Date Time Provider Department 10/28/18 [...] PROVIDER: Farrah Garcia MD [address] [facility] [id number] Consult requested for an opinion regarding the [...] TIME: 12:44 PM Referring Provider: FARRAH GARCIA [[id number]] Allergies As of Date: 10/28/2018 (No Known [...] PROGRESSon 10-28-2018 Protein mass conc HNO ID: [id number] Author: Warren Rodriguez Service: ? Author Type: Physician Type: Progress Notes Filed: 10/29/2018 3:03 PM Note Text: VASCULAR SURGERY INITIAL CONSULT SERVICE DATE: 10/28/2018 SERVICE TIME: 12:44 PM PRIMARY CARE PHYSICIAN: Farrah Garcia MD REFERRING PROVIDER: Farrah Garcia MD [address] [facility] [id number] Consult requested for an opinion regarding the [...] index (BMI) [Ratio] 26.79 kg/m2 Nom Nurse [facility] 07-19-2023 09:31-0500 Body weight 73.03 kg Nom Nurse [facility] 07-19-2023 09:31-0500 Diastolic blood pressure 72 mm[Hg] Noms Nurse [facility] 07-19-2023 09:31-0500 Systolic blood pressure 118 mm[Hg] [facility] Nurse [facility] Healthcare Encounters Encounter Date Encounter Type Care Provider Facility Start: 12-23-2023 End: 12-23-2023 ambulatory JOSE MIGUEL JUSTEN Not Available Start: 12-05-2023 End: 12-05-2023 ambulatory JOSE MIGUEL JUSTEN Not Available Start: 11-25-2023 End: 11-25-2023 ambulatory JOSE MIGUEL JUSTEN Not Available Start: 11-12-2023 End: 11-12-2023 ambulatory JOSE MIGUEL JUSTEN Not Available Start: 11-07-2023 End: 11-08-2023 ambulatory JOSE MIGUEL R JUSTEN [facility] Start: 10-15-2023 End: 10-15-2023 ambulatory JOSE MIGUEL JUTSEN Not Available Start: 09-17-2023 End: 09-17-2023 ambulatory [...] Not Available Start: 07-08-2023 ambulatory Royer Layne acility:[facility] Start: 07-02-2023 End: 07-02-2023 ambulatory JOSE [...] 09-19-2021 Recurring Jose Miguel CAMPUZANO [facility] Start: 03-05-2020 End: 03-06-2020 Patient encounter procedure [facility] Start: 03-05-2020 End: 03-05-2020 Subsequent hospital visit by physician Vibha Johnson Work Phone: [facility] Comment on above: Chronic low [...] encounter procedure 08/19/2023 11:10 AM EST Routine [facility] [address] [place] [id number] Jose Miguel Campuzano, DO [address] [place] [address] [facility] Start: 07-19-2023 End: 07-19-2024 ABO/Rh ABO/Rh Lab Routine Missed menses Expected: 07/19/2023 (Approximate), Expires: 07/19/2024 [facility] Comment on above: Expected: 07/19/2023 (Approximate), Expires: 07/19/2024 Start: 07-19-2023 End: 07-19-2024 Blood type and Indirect antibody screen panel - Blood Type and screen Lab Routine Missed menses Expected: 07/19/2023 (Approximate), Expires: 07/19/2024 [facility] Work Phone: Comment on above: Expected: 07/19/2023 (Approximate), Expires: 07/19/2024 Start: 07-19-2023 End: 07-19-2024 US Pelvis transvaginal US OB transvaginal Imaging Routine Missed menses Expected: 07/19/2023 (Approximate), Expires: 07/19/2024 [facility] Comment on above: Expected: 07/19/2023 (Approximate), Expires: 07/19/2024 Start: 02-16-2020 Influenza vaccinatio n given Sequential Influenza Vaccine (#1) [facility] Start: 2014 Hepatitis C antibody , confirmatory test Hepatitis C Screening [facility] Start: 08-31-2011 HIV screening HIV Screening [facility] Start: 08-31-2007 Vaccination for [place] papillomavirus HPV Vaccines (1 - 2-dose series) [facility] Start: 08-31-1999 History and physical examination, annual for health maintenance Wellness Visit [facility] Start: 1996 Screening for Chlamy tristan trachomatis Chlamydia Screening [facility] Start: 1996 Screening for malign ant neoplasm of cervix Pap Smear [facility] Start: 1996 Tetanus vaccination Tetanus: Every 1 0yrs [facility] Bacteria identified in Urine by Culture Urine culture Microbiology Routine Missed menses Ordered: 07/19/2023 [facility] Comment on above: Ordered: 07/19/2023 CBC W Auto Different ial panel - Blood CBC and differential Lab Routine Missed menses Ordered: 07/19/2023 [facility] Comment on above: Ordered: 07/19/2023 Hemoglobin A1c measurement Hemoglobin A1c Lab Routine Missed menses Ordered: 07/19/2023 [facility] Comment on above: Ordered: 07/19/2023 Hepatitis B virus knight rface Ag [Presence] in Serum or Plasma by Immunoassay Hepatitis B surface antigen Lab Routine Missed menses Ordered: 07/19/2023 [facility] Comment on above: Ordered: 07/19/2023 Hepatitis C virus Ab [Presence] in Serum or Plasma by Immunoassay Hepatitis C antibody Lab Routine Missed menses Ordered: 07/19/2023 [facility] Comment on above: Ordered: 07/19/2023 HIV-1/HIV-2 antigen/antibody combination immunoassay HIV-1 and HIV-2 antibodies Lab Routine Missed menses Ordered: 07/19/2023 [facility] Comment on above: Ordered: 07/19/2023 Reagin Ab [Presence] in Serum by RPR RPR Lab Routine Missed menses Ordered: 07/19/2023 [facility] Comment on above: Ordered: 07/19/2023 Rubella antibody, IgG Rubella an tibody, IgG Lab Routine Missed menses Ordered: 07/19/2023 [facility] Comment on above: Ordered: 07/19/2023 Payers Date Payer Category Payer Self-pay 2022 Medicaid [employer] [place] [id number] 2022-Present [address] [place] [address] [id number] 1995 Unknown [id number] 2.16.840.1.003894.3.579.2.903 1995 Unknown [id number] 2.16.840.1.237617.3.579.2.593 1996 Unknown [id number] 2.16.840.1.488712.3.579.2.593 1996 Unknown [id number] 2.16.840.1.924451.3.579.2.593 1996 Unknown [id number] 2.16.840.1.021439.3.579.2.593 1996 Unknown [id number] 2.16.840.1.143086.3.579.2.593 1996 Unknown [id number] 2.16.840.1.559264.3.579.2.593 1996 Unknown [id number] 2.16.840.1.953016.3.579.2.593 1996 Unknown [id number] 2.16.840.1.977275.3.579.2.593 1996 Unknown [id number] 2.16.840.1.636649.3.579.2.593 1996 Unknown [id number] 2.16.840.1.130732.3.579.2.593 1996 Unknown [id number] 2.16.840.1.711692.3.579.2.593 1996 Unknown [id number] 2.16.840.1.486148.3.579.2.593 1996 Unknown [id number] 2.16.840.1.260801.3.579.2.593 1996 Unknown [id number] 2.16.840.1.261184.3.579.2.593 1996 Unknown [id number] 2.16.840.1.854599.3.579.2.593 1996 Unknown [id number] 2.16.840.1.879149.3.579.2.593 1996 Unknown [id number] 2.16.840.1.484726.3.579.2.593 1996 Unknown [id number] 2.16.840.1.553939.3.579.2.593 1996 Unknown [id number] 2.16.840.1.367510.3.579.2.593 1996 Unknown [id number] 2.16.840.1.050242.3.579.2.593 1996 Unknown [id number] 2.16.840.1.886552.3.579.2.593 1996 Unknown [id number] 2.16.840.1.631533.3.579.2.1286 1996 Unknown [id number] 2.16.840.1.413134.3.579.2.1286 1996 Unknown [id number] 2.16.840.1.877209.3.579.2.1259 1996 Unknown [id number] 2.16.840.1.697765.3.579.2.1259 1996 Unknown [id number] 2.16.840.1.007414.3.579.2.1259 1996 Unknown [id number] 2.16.840.1.620520.3.579.2.1259 1996 Unknown [id number] 2.16.840.1.072331.3.579.2.1259 1996 Unknown [id number] 2.16840.1.453238.3.579.2.9 1996 Unknown [id number] 2.16840.1.602341.3.579.2.1259 1996 Unknown [id number] 2.16840.1.689012.3.579.2.9 1996 Unknown [id number] 2.16840.1.504994.3.579.2.1259 1959 Unknown [id number] 1959 Unknown [id number] Unknown COMMERCIAL COMME RCIAL MISCELLANEOUS [id number] Effective for all dates [id number] 1.2.840.157255.1.13.385.2.7.3. 631420.315 Unknown [id number] Unknown [id number] 2..840.1.761413.3.579.2.531 Social History Date Type Detail Facility Tobacco smoking stat [facility] Unknown if ever smoked [facility] Sex Assigned At Not on file [facility] Start: 12-07-2022 Sex Assigned At Female [facility] Start: 12-07-2022 Tobacco smoking status CAIS Never smoked tobacco [facility] Start: 07-19-2023 Alcohol intake Current drinker of alcohol (finding) [facility] Start: 12-07-2022 History of Social function [facility] Start: 12-07-2022 Alcohol Comment 1-2 drinks less than monthly in the past year [facility] Start: 05-31-2023 [facility] Start: 1995 Sex Assigned At Female [facility] Start: 11-29-2022 Gender identity Identifies as female gender (finding) [facility] Start: 11-29-2022 Sexual orientation Heterosexual (finding) [facility] History of Present illness Narrative 07-19-2023 [...] Procedure Laterality Date DILATION AND CURETTAGE 2018 CT TONSILLECTOMY & ADENOIDECTOMY AGE 13/> 2015 WISDOM [...] sent for nausea to pharmacy. Pt desires [place] [facility] and understands to have it done at 10 weeks along w/her labs. Follow Up: Patient is to have labs drawn at directed and return to office for initial OB appointment with provider. Patient may call office as needed with any concerns or questions. Nurse Visit Completed by: Cori Daniel MA documented in this encounter [facility] Clinical Note 01-16-2022 Note Date & Type [...] authenticated by: Cecelia FOOTE Date: 2022-01-16 21:33 [facility] Clinical Note 01-16-2022 Note Date [...] authenticated by: Cecelia FOOTE Date: 2022-01-16 21:33 [facility] Clinical Note 01-15-2022 Note Date & [...] by: IGOR DIAZ Date: 2022-01-15 10:10 [facility] Evaluation + Plan note Note Date & Type Note Facility Evaluation + Plan note No data available for this section [facility] Evaluation note Note Date & Type Note Facility Evaluation note Diagnosis Missed menses Nausea Nausea alone documented in this encounter [facility] Hospital Discharge instructions Note Date & Type Note Facility Hospital Discharge instructions No data available for this section [facility] Summary Purpose Family History No Family History Records FoundNo Family History Records FoundNo Family History Records FoundNo Family History Records FoundNo Family History Records FoundNo Family History Records FoundNo Family History Records Found Advance Directives No Advanced Directives Records FoundDocuments on File Type Date Recorded Patient Chipper Expl anation Advance Directives and Livin g Will 03/05/2020 2:18 PM Assessments Diagnosis Chronic low back pain, unspecified back pain laterality, unspecified whether sciatica present Additional Source Comments INFORMATION SOURCE (unrecogn ized section and content) DATE CREATED AUTHOR 11/08/2018 [facility] DATE CREATED AUTHOR AUTHOR'S ORGANIZ ATION 03/21/2020 [facility] DATE CREATED AUTHOR AUTHOR'S ORGANIZ ATION 08/04/2022 [facility] DATE CREATED AUTHOR AUTHOR'S ORGANIZ ATION 09/06/2022 [facility] DATE CREATED AUTHOR AUTHOR'S ORGANIZ ATION 09/17/2023 [facility] DATE CREATED AUTHOR AUTHOR'S ORGANIZ ATION 11/09/2023 [facility] DATE CREATED AUTHOR AUTHOR'S ORGANIZ ATION 12/23/2023 [facility] EPIC Reason for Visit (unrecogniz ed [...] BE BASED ON THE PRIMARY CLINICAL RECORDS. [employer] [facility]. provides no warranty or guarantee of the accuracy or completeness of information in this document.
== END 2024-01-02 11:36 | disposition home or self-care (01) ==
LOC: FBCO 07:01 → FBC 11:03
PROVIDERS: PCP Nurse Practitioner Family; Visit Provider Obstetrics & Gynecology
DX: O43.899 Other placental disorders, unspecified trimester (principal)
CPT/HCPCS: 59025

== ENCOUNTER 2024-01-04 12:37 | Outpatient (OUT) | payer OTHER, SELFPAY ==
--- OUTSIDE RECORDS SUMMARY | 2024-01-04 12:41 | XMS_ITS | CCD ---
Author Organization [facility] Care Team Providers Care Pipelaying Fitter Name Role Phone Farrah Garcia Primary Care Provider [phone] VIBHA JOHNSON Attending Unavailable VIBHA JOHNSON Referring Unavailable FARRAH GARCIA Primary Care Unavailable Kelli Oliver Primary Care Physician [phone] MISC, DR LORENZANA Primary Care Unavailable MANOJ [...] Consulting Unavailable JUSTEN, DR GILLESPIE Consulting Unavailable JUSTNE, DR GILLESPIE Admitting Unavailable JUSTEN, DR GILLESPIE [...] (1 source) Desonide Drug Allergy 9 [facility] Repository (2 sources) Wound Dressing Adhesive [...] 02-15-2022 Episodic Other aftercare (1 source) 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 Basophils/100 WBC (Bld) 0.7 % 0.2 - 2.0 % [facility] Eosinophils/100 WBC (Bld) 2.6 % 0.9 - 7.0 % [facility] Erythrocyte distribution width (RBC) [Ratio] 13.4 % 11.0 - 15.0 % [facility] Hematocrit (Bld) [Volume fraction] 39.0 % 36.0 - 48.0 % [facility] Hemoglobin (Bld) [Mass/Vol] 12.8 g/dL 12.0 - 16.0 g/dL [facility] IMMATURE GRANULOCYTES ABS AUTO 0.[address] [facility] Immature granulocytes/100 WBC (Bld) 0.1 % 0.0 - 0.5 % [facility] LYMPHOCYTES ABSOLUTE AUTO 2.[address] [facility] Lymphocytes/100 WBC (Bld) 26.1 % 20.5 - 60.0 % [facility] MCH (RBC) [Entitic mass] 28.6 pg 26.7 - 34.[address] [facility] MCHC (RBC) [Mass/Vol] 32.8 g/dL 29.9 - 35.2 g/dL [facility] MCV (RBC) [Entitic vol] 87.2 fL 81.0 - 99.[address] [facility] MONOCYTES ABSOLUTE AUTO 0.[address] [facility] Monocytes/100 WBC (Bld) 5.7 % 1.7 - 12.0 % [facility] NEUTROPHILS ABSOLUTE AUTO 5.[address] [facility] Neutrophils/100 WBC (Bld) 64.8 % 43.0 - 75.0 % [facility] Platelet mean volume (Bld) [Entitic vol] 10.1 fL 9.5 - 13.[address] [facility] TBH EO # 0.2 [facility] PLT 340 [facility] RBC 4.47 [facility] WBC 8.[address] [facility] HCG ( test) Ql (U)o n 07-19-2023 Interpretation and review of laboratory results Abnormal [facility] Preg Test, Ur Positive [facility] Urinalysis macro (dipstick) panel (U)on 07-19-2023 Bilirubin, UA Negative Negative - 4(70) +++ mg/dL [facility] Blood, UA Positive Negative - 50 Anselmo/mcL [facility] Comment on above: moderate Clarity, UA Clear [facility] Color, UA [place] [facility] Glucose, UA Negative Negative - 1999(110) ++++ mg/dL [facility] Interpretation and review of laboratory results Abnormal [facility] Ketones, UA Positive Negative - 160(16) ++++ mg/dL [facility] Comment on above: trace Leukocytes, UA Positive Negative - 500+++ Monik/mcL [facility] Comment on above: small Nitrite, UA Negative Negative - Positive [facility] pH, UA 6.0 5 - [address] [facility] Protein, UA Positive Negative - 1999(20) ++++ mg/dL [facility] Comment on above: 30 Spec Grav, UA 1.030 1 - 1.[address] [facility] Urobilinogen, UA 1.0 0.2 - 12 mg/dL [facility] In office Testingon 03-23-20 23 In office Testing [id number]# 1.00CD:127 Normal [facility] [place] CBC AUTO DIFFon 07-30-2022 BASO # 0.1 103/ul Normal 0.0-0.1 [facility] Comment on above: Performed By: #### U RCX #### [facility] [address] [place] [address] Dr. Caitlin Martinez Basophils/100 WBC (Bld) 1.1 % Normal 0.2-2.0 [facility] Comment on above: Performed By: #### U RCX #### [facility] [address] [place] [address] Dr. Caitlin Martinez EO # 0.3 103/ul Normal 0.0-0.7 [facility] Comment on above: Performed By: #### U RCX #### [facility] [address] [place] [address] Dr. Caitlin Martinez Eosinophils/100 WBC (Bld) 4.7 % Normal 0.9-7.0 [facility] Comment on above: Performed By: #### U RCX #### [facility] [address] [place] [address] Dr. Caitlin Martinez Erythrocyte distribution width (RBC) [Ratio] 14.7 % Normal 11.0-15.0 [facility] Comment on above: Performed By: #### U RCX #### [facility] [address] [place] [address] Dr. Caitlin Martinez Hematocrit (Bld) [Volume fraction] 39.3 % Normal 36.0-48.0 [facility] Comment on above: Performed By: #### U RCX #### [facility] [address] [place] [address] Dr. Caitlin Martinez Hemoglobin (Bld) [Mass/Vol] 12.7 g/dL Normal 12.0-16.0 [facility] Comment on above: Performed By: #### U RCX #### [facility] [address] [place] [address] Dr. Caitlin Martinez IG # 0.02 10e3/ul Normal 0.00-0.03 [facility] Comment on above: Performed By: #### U RCX #### [facility] [address] [place] [address] Dr. Caitlin Martinez IG % 0.3 % Normal 0.0-0.5 [facility] Comment on above: Performed By: #### U RCX #### [facility] [address] [place] [address] Dr. Caitlin Martinez LYMPH # 2.5 103/ul Normal 1.2-3.8 [facility] Comment on above: Performed By: #### U RCX #### [facility] [address] [place] [address] Dr. Caitlin Martinez Lymphocytes/100 WBC (Bld) 34.5 % Normal 20.5-60.0 [facility] Comment on above: Performed By: #### U RCX #### [facility] [address] [place] [address] Dr. Caitlin Martinez MANUAL DIFF REQ NO Normal [facility] Comment on above: Performed By: #### U RCX #### [facility] [address] [place] [address] Dr. Caitlin Martinez MCH (RBC) [Entitic mass] 27.3 pg Normal 26.7-34.0 [facility] Comment on above: Performed By: #### U RCX #### [facility] [address] [place] [address] Dr. Caitlin Martinez MCHC (RBC) [Mass/Vol] 32.3 g/dL Normal 29.9-35.2 [facility] Comment on above: Performed By: #### U RCX #### [facility] [address] [place] [address] Dr. Caitlin Martinez MCV (RBC) [Entitic vol] 84.5 fL Normal 81.0-99.0 [facility] Comment on above: Performed By: #### U RCX #### [facility] [address] [place] [address] Dr. Caitlin Martinez MONO # 0.5 103/ul Normal 0.3-0.8 [facility] Comment on above: Performed By: #### U RCX #### [facility] [address] [place] [address] Dr. Caitlin Martinez Monocytes/100 WBC (Bld) 7.3 % Normal 1.7-12.0 [facility] Comment on above: Performed By: #### U RCX #### [facility] [address] [place] [address] Dr. Caitlin Martinez NEUT # 3.8 103/ul Normal 1.4-6.5 [facility] Comment on above: Performed By: #### U RCX #### [facility] [address] [place] [address] Dr. Caitlin Martinez Neutrophils/100 WBC (Bld) 52.1 % Normal 43.0-75.0 [facility] Comment on above: Performed By: #### U RCX #### [facility] [address] [place] [address] Dr. Caitlin Martinez Platelet mean volume (Bld) [Entitic vol] 9.0 fL Critically low 9.5-13.5 [facility] Comment on above: Performed By: #### U RCX #### [facility] [address] [place] [address] Dr. Caitlin Martinez PLT 368 103/ul Normal 150-450 [facility] Comment on above: Performed By: #### U RCX #### [facility] [address] [place] [address] Dr. Caitlin Martinez RBC 4.65 106/ul Normal 4.20-5.40 [facility] Comment on above: Performed By: #### U RCX #### [facility] [address] [place] [address] Dr. Caitlin Martinez WBC 7.2 103/ul Normal 4.0-11.0 [facility] Comment on above: Performed By: #### U RCX #### [facility] [address] [place] [address] Dr. Caitlin Martinez IRONon 07-30-2022 Iron [Mass/Vol] 43.0 ug/dL Critically low 50.0-170.0 [facility] Comment on above: Performed By: #### U RCX #### [facility] [address] [place] [address] Dr. Caitlin Martinez PAP ACOG PANEL 2: 21 to 30on 07-30-2022 . . Normal [facility] Comment on above: Performed By: #### U RCX #### [facility] [address] [place] [address] Dr. Caitlin Martinez Age Gdln ACOG Testing - [facility] Comment on above: Performed By: #### U RCX #### [facility] [address] [address] [address] Caitlin Martinez DIAGNOSIS: Comment [facility] Comment on above: Result Comment: NEGA TIVE FOR INTRAEPITHELIAL LESION OR MALIGNANCY. Performed By: #### U RCX #### [facility] [address] [place] [address] Dr. Caitlin Martinez Methodology: Comment [facility] Comment on above: Result Comment: This liquid based ThinPrep(R) pap test was screened with the use of an image guided system. Performed By: #### U RCX #### [facility] [address] [place] [address] Dr. Caitlin Martinez Note: Comment [facility] Comment on above: Result Comment: The Pap smear is a screening test designed to aid in the detection of premalignant and malignant conditions of the uterine cervix. It is not a diagnostic procedure and should not be used as the sole means of detecting cervical cancer. Both false-positive and false-negative reports do occur. . Performed By: #### U RCX #### [facility] [address] [place] [address] Dr. Caitlin Martinez Performed by: Comment Normal [facility] Comment on above: Result Comment: Bhavna Cormier, [employer] Administrator (ASCP) Performed By: #### U RCX #### [facility] [address] [place] [address] Dr. Caitlin Martinez Reflex Criteria: Comment Normal [facility] Comment on above: Result Comment: The HPV DNA reflex criteria were not met with this specimen result therefore, no HPV testing was performed. . Performed By: #### U RCX #### [facility] [address] [place] [address] Dr. Caitlin Martinez Specimen adequacy: Comment Normal [facility] Comment on above: Result Comment: Sati sfactory for evaluation. Endocervical and/or squamous metaplastic cells (endocervical component) are present. Performed By: #### U RCX #### [facility] [address] [place] [address] Dr. Caitlin Martinez INSULINon 04-19-2022 Insulin 9.1 uIU/mL Normal 2.6-24.9 [facility] Comment on above: Performed By: #### I HORACIO #### [facility] [address] [place] [address] Dr. Caitlin Martinez CBC AUTO DIFFon 04-18-2022 BASO # 0.1 103/ul Normal 0.0-0.1 [facility] Comment on above: Performed By: #### U RCX #### [facility] [address] [place] [address] Dr. Caitlin Martinez Basophils/100 WBC (Bld) 1.0 % Normal 0.2-2.0 [facility] Comment on above: Performed By: #### U RCX #### [facility] [address] [place] [address] Dr. Caitlin Martinez EO # 0.3 103/ul Normal 0.0-0.7 [facility] Comment on above: Performed By: #### U RCX #### [facility] [address] [place] [address] Dr. Caitlin Martinez Eosinophils/100 WBC (Bld) 4.1 % Normal 0.9-7.0 [facility] Comment on above: Performed By: #### U RCX #### [facility] [address] [place] [address] Dr. Caitlin Martinez Erythrocyte distribution width (RBC) [Ratio] 16.0 % Critically high 11.0-15.0 [facility] Comment on above: Performed By: #### U RCX #### [facility] [address] [place] [address] Dr. Caitlin Martinez Hematocrit (Bld) [Volume fraction] 35.7 % Critically low 36.0-48.0 [facility] Comment on above: Performed By: #### U RCX #### [facility] [address] [place] [address] Dr. Caitlin Martinez Hemoglobin (Bld) [Mass/Vol] 10.9 g/dL Critically low 12.0-16.0 [facility] Comment on above: Performed By: #### U RCX #### [facility] [address] [place] [address] Dr. Caitlin Martinez IG # 0.07 10e3/ul Critically high 0.00-0.03 [facility] Comment on above: Performed By: #### U RCX #### [facility] [address] [place] [address] Dr. Caitlin Martinez IG % 1.0 % Critically high 0.0-0.5 [facility] Comment on above: Performed By: #### U RCX #### [facility] [address] [place] [address] Dr. Caitlin Martinez LYMPH # 2.3 103/ul Normal 1.2-3.8 [facility] Comment on above: Performed By: #### U RCX #### [facility] [address] [place] [address] Dr. Caitlin Martinez Lymphocytes/100 WBC (Bld) 31.4 % Normal 20.5-60.0 [facility] Comment on above: Performed By: #### U RCX #### [facility] [address] [place] [address] Dr. Caitlin Martinez MANUAL DIFF REQ NO Normal [facility] Comment on above: Performed By: #### U RCX #### [facility] [address] [place] [address] Dr. Caitlin Martinez MCH (RBC) [Entitic mass] 24.8 pg Critically low 26.7-34.0 [facility] Comment on above: Performed By: #### U RCX #### [facility] [address] [address] [address] Caitlin Martinez MCHC (RBC) [Mass/Vol] 30.5 g/dL Normal 29.9-35.2 [facility] Comment on above: Performed By: #### U RCX #### [facility] [address] [address] [address] Caitlin Martinez MCV (RBC) [Entitic vol] 81.1 fL Normal 81.0-99.0 [facility] Comment on above: Performed By: #### U RCX #### [facility] [address] [address] [address] Caitlin Martinez MONO # 0.5 103/ul Normal 0.3-0.8 [facility] Comment on above: Performed By: #### U RCX #### [facility] [address] [place] [address] Dr. Caitlin Martinez Monocytes/100 WBC (Bld) 6.6 % Normal 1.7-12.0 [facility] Comment on above: Performed By: #### U RCX #### [facility] [address] [place] [address] Dr. Caitlin Martinez NEUT # 4.1 103/ul Normal 1.4-6.5 [facility] Comment on above: Performed By: #### U RCX #### [facility] [address] [place] [address] Dr. Caitlin Martinez Neutrophils/100 WBC (Bld) 55.9 % Normal 43.0-75.0 [facility] Comment on above: Performed By: #### U RCX #### [facility] [address] [place] [address] Dr. Caitlin Martinez Platelet mean volume (Bld) [Entitic vol] 9.4 fL Critically low 9.5-13.5 [facility] Comment on above: Performed By: #### U RCX #### [facility] [address] [place] [address] Dr. Caitlin Martinez PLT 369 103/ul Normal 150-450 [facility] Comment on above: Performed By: #### U RCX #### [facility] [address] [address] [address] Caitlin Martinez RBC 4.40 106/ul Normal 4.20-5.40 [facility] Comment on above: Performed By: #### U RCX #### [facility] [address] [address] [address] Caitlin Martinez WBC 7.3 103/ul Normal 4.0-11.0 [facility] Comment on above: Performed By: #### U RCX #### [facility] [address] [address] [address] Caitlin Martinez FREE THYROXINE INDEX T7on FTI 2.20 Normal 1.30-4.50 [facility] Comment on above: Performed By: #### I HORACIO #### [facility] [address] [address] [address] Caitlin Martinez T3U 29.0 % Critically low 30.0-39.0 [facility] Comment on above: Performed By: #### I HORACIO #### [facility] [address] [address] [address] Caitlin Martinez T4 [Mass/Vol] 7.60 ug/dL Normal 4.80-13.90 [facility] Comment on above: Performed By: #### I HORACIO #### [facility] [address] [address] [address] Caitlin Martinez GLYCOHEMOGLOBIN A1Con 2021 ADA RECOMMENDATION SEE BELOW Normal [facility] Comment on above: Result Comment: ADA RECOMMENDED LIMIT 4.0 - 6.0 ADA THERAPEUTIC TARGET < 7.0 ACTION SUGGESTED > 7.0 Performed By: #### U RCX #### [facility] [address] [address] [address] Caitlin Martinez Glucose [Mass/Vol] 97 mg/dL Normal [facility] Comment on above: Performed By: #### U RCX #### [facility] [address] [address] [address] Caitlin Martinez HbA1c (Bld) [Mass fraction] 5.0 % Normal 4.5-6.2 [facility] Comment on above: Performed By: #### U RCX #### [facility] [address] [address] [address] Caitlin Martinez IRONon 04-18-2022 Iron [Mass/Vol] 35.0 ug/dL Critically low 50.0-170.0 [facility] Comment on above: Performed By: #### I HORACIO #### [facility] [address] [address] [address] Caitlin Martinez LIPID PROFILEon 04-18-2022 CHOL-HDL RATIO NORM SEE BELOW Normal [facility] Comment on above: Result Comment: 3.3 - 4.4 LOW RISK 4.4 - 7.1 AVERAGE RISK 7.1 - 11.0 MODERATE RISK >11.0 HIGH RISK Performed By: #### I HORACIO #### [facility] [address] [place] [address] Dr. Caitlin Martinez Cholesterol [Mass/Vol] 221 mg/dL Critically high <=200 [facility] Comment on above: Performed By: #### I HORACIO #### [facility] [address] [address] [address] Caitlin Martinez Cholesterol in HDL [Mass/Vol] 67 mg/dL Critically high 40-60 [facility] Comment on above: Performed By: #### I HORACIO #### [facility] [address] [place] [address] Dr. Caitlin Martinez Cholesterol in LDL [Mass/Vol] 142.4 mg/dL Normal [facility] Comment on above: Performed By: #### I HORACIO #### [facility] [address] [address] [address] Caitlin Martinez Cholesterol.total/Cho lesterol in HDL [Mass ratio] 3.3 {ratio} Normal [facility] Comment on above: Performed By: #### I HORACIO #### [facility] [address] [place] [address] Dr. Caitlin Martinez HDL NORMAL > or = 60 mg/dl - LO W CARDIOVASCULAR RISK <40 mg/dl - HIGH CARDIOVASCULAR RISK Normal [facility] Comment on above: Performed By: #### I HORACIO #### [facility] [address] [address] [address] Caitlin Martinez LDL CALC NORMAL SEE BELOW Normal [facility] Comment on above: Result Comment: <100 mg/dl OPTIMAL 100 - 129 mg/dl NEAR OR ABOVE OPTIMAL 130 - 159 mg/dl BORDERLINE HIGH 160 - 189 mg/dl HIGH >190 mg/dl VERY HIGH Performed By: #### I HORACIO #### [facility] [address] [address] [address] Caitlin Martinez Triglyceride [Mass/Vol] 58 mg/dL Normal <=150 [facility] Comment on above: Performed By: #### I HORACIO #### [facility] [address] [address] [address] Caitlin Martinez VLDL CALC 11.6 mg/dL Normal [facility] Comment on above: Performed By: #### I HORACIO #### [facility] [address] [place] [address] Dr. Caitlin Martinez PROF 14(COMP METB)on 022 Albumin [Mass/Vol] 3.8 g/dL Normal 3.4-5.0 [facility] Comment on above: Performed By: #### I HORACIO #### [facility] [address] [place] [address] Dr. Caitlin Martinez Albumin/Globulin [Mass ratio] 1.1 {ratio} Normal [facility] Comment on above: Performed By: #### I HORACIO #### [facility] [address] [address] [address] Caitlin Martinez ALP [Catalytic activity/Vol] 132 U/L Critically high 46-116 [facility] Comment on above: Performed By: #### I HORACIO #### [facility] [address] [address] [address] Caitlin Martinez ALT [Catalytic activity/Vol] 55 U/L Normal 14-59 [facility] Comment on above: Performed By: #### I HORACIO #### [facility] [address] [place] [address] Dr. Caitlin Martinez Anion gap [Moles/Vol] 12.6 mmol/L Normal [facility] Comment on above: Performed By: #### I HORACIO #### [facility] [address] [address] [address] Caitlin Martinez AST [Catalytic activity/Vol] 27 U/L Normal 15-37 [facility] Comment on above: Performed By: #### I HORACIO #### [facility] [address] [address] [address] Caitlin Martinez Bilirubin [Mass/Vol] 0.6 mg/dL Normal 0.2-1.0 [facility] Comment on above: Performed By: #### I HORACIO #### [facility] [address] [address] [address] Caitlin Martinez Calcium [Mass/Vol] 9.1 mg/dL Normal 8.5-10.1 [facility] Comment on above: Performed By: #### I HORACIO #### [facility] [address] [address] [address] Caitlin Martinez Chloride [Moles/Vol] 106 mmol/L Normal 98-107 [facility] Comment on above: Performed By: #### I HORACIO #### [facility] [address] [address] [address] Caitlin Martinez CO2 [Moles/Vol] 26.5 mmol/L Normal 21.0-32.0 [facility] Comment on above: Performed By: #### I HORACIO #### [facility] [address] [address] [address] Caitlin Martinez Creatinine [Mass/Vol] 0.63 mg/dL Normal 0.55-1.02 [facility] Comment on above: Performed By: #### I HORACIO #### [facility] [address] [address] [address] Caitlin Martinez EGFR-AF OMANI >60 Normal >=60 [facility] Comment on above: Performed By: #### I HORACIO #### [facility] [address] [address] [address] Caitlin Martinez EGFR-NON AF OMANI >60 Normal >=60 [facility] Comment on above: Performed By: #### I HORACIO #### [facility] [address] [address] [address] Caitlin Martinez Globulin (S) [Mass/Vol] 3.6 g/dL Normal [facility] Comment on above: Performed By: #### I HORACIO #### [facility] [address] [address] [address] Caitlin Martinez Glucose [Mass/Vol] 98 mg/dL Normal 74-106 [facility] Comment on above: Performed By: #### I HORACIO #### [facility] [address] [place] [address] Dr. Caitlin Martinez Potassium [Moles/Vol] 4.1 mmol/L Normal 3.5-5.1 [facility] Comment on above: Performed By: #### I HORACIO #### [facility] [address] [place] [address] Dr. Caitlin Martinez Protein [Mass/Vol] 7.4 g/dL Normal 6.4-8.2 [facility] [facility] Comment on above: Performed By: #### I HORACIO #### [facility] [address] [place] [address] Dr. Caitlin Martinez Sodium [Moles/Vol] 141 mmol/L Normal 136-145 [facility] Comment on above: Performed By: #### I HORACIO #### [facility] [address] [place] [address] Dr. Caitlin Martinez Urea nitrogen [Mass/Vol] 9.0 mg/dL Normal 7.0-18.0 [facility] Comment on above: Performed By: #### I HORACIO #### [facility] [address] [place] [address] Dr. Caitlin Martinez Urea nitrogen/Creatinine [Mass ratio] 14.3 mg/mg Normal [facility] Comment on above: Performed By: #### I HORACIO #### [facility] [address] [place] [address] Dr. Caitlin Martinez TSHon 04-18-2022 TSH 1.349 uIU/mL Normal 0.358-3.740 [facility] Comment on above: Performed By: #### I HORACIO #### [facility] [address] [place] [address] Dr. Caitlin Martinez ANTIBODY ID PANELon 02-15-20 22 ANTIBODY ID PANEL Antibody ID Anti-D Blood Bank Notes most likely due to Rhogam given on 12/01/21 Normal [facility] Comment on above: Performed By: #### D IRCMB, ABINadine #### [facility] [address] [place] [address] [id number] [address] Caitlin Martinez CTA CHEST WO W [...] GAGANDEEP WHEELER Date: 2022-02-10 22:55 Normal [facility] CBC AUTO DIFFon 02-10-2022 BASO # 0.1 103/ul Normal 0.0-0.1 [facility] Comment on above: Performed By: #### C BC #### [facility] [address] [place] [address] Dr. Caitlin Martinez Basophils/100 WBC (Bld) 0.4 % Normal 0.2-2.0 [facility] Comment on above: Performed By: #### C BC #### [facility] [address] [place] [address] Dr. Caitlin Martinez EO # 0.5 103/ul Normal 0.0-0.7 [facility] Comment on above: Performed By: #### C BC #### [facility] [address] [place] [address] Dr. Caitlin Martinez Eosinophils/100 WBC (Bld) 4.2 % Normal 0.9-7.0 [facility] Comment on above: Performed By: #### C BC #### [facility] [address] [place] [address] Dr. Caitlin Martinez Erythrocyte distribution width (RBC) [Ratio] 14.7 % Normal 11.0-15.0 [facility] Comment on above: Performed By: #### C BC #### [facility] [address] [place] [address] Dr. Caitlin Martinez Hematocrit (Bld) [Volume fraction] 31.1 % Critically low 36.0-48.0 [facility] Comment on above: Performed By: #### C BC #### [facility] [address] [place] [address] Dr. Caitlin Martinez Hemoglobin (Bld) [Mass/Vol] 9.6 g/dL Critically low 12.0-16.0 [facility] Comment on above: Performed By: #### C BC #### [facility] [address] [place] [address] Dr. Caitlin Martinez IG # 0.28 10e3/ul Critically high 0.00-0.03 [facility] Comment on above: Performed By: #### C BC #### [facility] [address] [place] [address] Dr. Caitlin Martinez IG % 2.3 % Critically high 0.0-0.5 [facility] Comment on above: Performed By: #### C BC #### [facility] [address] [place] [address] Dr. Caitlin Martinez LYMPH # 3.3 103/ul Normal 1.2-3.8 [facility] Comment on above: Performed By: #### C BC #### [facility] [address] [place] [address] Dr. Caitlin Martinez Lymphocytes/100 WBC (Bld) 26.9 % Normal 20.5-60.0 [facility] Comment on above: Performed By: #### C BC #### [facility] [address] [place] [address] Dr. Caitlin Martinez MANUAL DIFF REQ NO Normal [facility] Comment on above: Performed By: #### C BC #### [facility] [address] [place] [address] Dr. Caitlin Martinez MCH (RBC) [Entitic mass] 26.2 pg Critically low 26.7-34.0 [facility] Comment on above: Performed By: #### C BC #### [facility] [address] [place] [address] Dr. Caitiln Martinez MCHC (RBC) [Mass/Vol] 30.9 g/dL Normal 29.9-35.2 [facility] Comment on above: Performed By: #### C BC #### [facility] [address] [place] [address] Dr. Caitlin Martinez MCV (RBC) [Entitic vol] 84.7 fL Normal 81.0-99.0 [facility] Comment on above: Performed By: #### C BC #### [facility] [address] [place] [address] Dr. Caitlin Martinez MONO # 1.1 103/ul Critically high 0.3-0.8 [facility] Comment on above: Performed By: #### C BC #### [facility] [address] [place] [address] Dr. Caitlin Martinez Monocytes/100 WBC (Bld) 8.7 % Normal 1.7-12.0 [facility] Comment on above: Performed By: #### C BC #### [facility] [address] [place] [address] Dr. Caitlin Martinez NEUT # 7.0 103/ul Critically high 1.4-6.5 [facility] Comment on above: Performed By: #### C BC #### [facility] [address] [place] [address] Dr. Caitlin Martinez Neutrophils/100 WBC (Bld) 57.5 % Normal 43.0-75.0 [facility] Comment on above: Performed By: #### C BC #### [facility] [address] [place] [address] Dr. Caitlin Martinez Platelet mean volume (Bld) [Entitic vol] 9.1 fL Critically low 9.5-13.5 [facility] Comment on above: Performed By: #### C BC #### [facility] [address] [address] [address] Caitlin Martinez PLT 437 103/ul Normal 150-450 [facility] Comment on above: Performed By: #### C BC #### [facility] [address] [address] [address] Caitlin Martinez RBC 3.67 106/ul Critically low 4.20-5.40 [facility] Comment on above: Performed By: #### C BC #### [facility] [address] [address] [address] Caitlin Martinez WBC 12.3 103/ul Critically high 4.0-11.0 [facility] Comment on above: Performed By: #### C BC #### [facility] [address] [place] [address] Dr. Caitlin Martinez Covid-19 PCR (CVDTB)on 01-16 SARS-CoV-2 (COVID-19) RNA JONATAN+probe Ql (Unsp spec) Not detected Normal NOT DETECTED [facility] Comment on above: Result Comment: When [...] for this test is supported by the [place] of [employer] and Human Service's declaration that [...] used). Performed By: #### C VDTBH #### [facility] [address] [address] [address] Caitlin Martinez PROF 14(COMP METB)on 022 Albumin [Mass/Vol] 2.1 g/dL Critically low 3.4-5.0 [facility] Comment on above: Performed By: #### U RCX #### [facility] [address] [place] [address] Dr. Caitlin Martinez Albumin/Globulin [Mass ratio] 0.5 {ratio} Normal [facility] Comment on above: Performed By: #### U RCX #### [facility] [address] [place] [address] Dr. Caitlin Martinez ALP [Catalytic activity/Vol] 202 U/L Critically high 46-116 [facility] Comment on above: Performed By: #### U RCX #### [facility] [address] [place] [address] Dr. Caitlin Martinez ALT [Catalytic activity/Vol] 20 U/L Normal 14-59 [facility] Comment on above: Performed By: #### U RCX #### [facility] [address] [place] [address] Dr. Caitlin Martinez Anion gap [Moles/Vol] 11.6 mmol/L Normal [facility] Comment on above: Performed By: #### U RCX #### [facility] [address] [place] [address] Dr. Caitlin Martinez AST [Catalytic activity/Vol] 17 U/L Normal 15-37 [facility] Comment on above: Performed By: #### U RCX #### [facility] [address] [place] [address] Dr. Caitlin Martinez Bilirubin [Mass/Vol] 0.3 mg/dL Normal 0.2-1.0 [facility] Comment on above: Performed By: #### U RCX #### [facility] [address] [place] [address] Dr. Caitlin Martinez Calcium [Mass/Vol] 9.2 mg/dL Normal 8.5-10.1 [facility] Comment on above: Performed By: #### U RCX #### [facility] [address] [address] [address] Caitlin Martinez Chloride [Moles/Vol] 104 mmol/L Normal 98-107 [facility] Comment on above: Performed By: #### U RCX #### [facility] [address] [place] [address] Dr. Caitlin Martinez CO2 [Moles/Vol] 26.9 mmol/L Normal 21.0-32.0 [facility] Comment on above: Performed By: #### U RCX #### [facility] [address] [address] [address] Caitlin Martinez Creatinine [Mass/Vol] 0.56 mg/dL Normal 0.55-1.02 [facility] Comment on above: Performed By: #### U RCX #### [facility] [address] [place] [address] Dr. Caitlin Martinez EGFR-AF OMANI >60 Normal >=60 [facility] Comment on above: Performed By: #### U RCX #### [facility] [address] [place] [address] Dr. Caitlin Martinez EGFR-NON AF OMANI >60 Normal >=60 [facility] Comment on above: Performed By: #### U RCX #### [facility] [address] [address] [address] Caitlin Martinez Globulin (S) [Mass/Vol] 4.4 g/dL Normal [facility] Comment on above: Performed By: #### U RCX #### [facility] [address] [address] [address] Caitlin Martinez Glucose [Mass/Vol] 108 mg/dL Critically high 74-106 [facility] Comment on above: Performed By: #### U RCX #### [facility] [address] [place] [address] Dr. Caitlin Martinez Potassium [Moles/Vol] 3.5 mmol/L Normal 3.5-5.1 [facility] Comment on above: Performed By: #### U RCX #### [facility] [address] [place] [address] Dr. Caitlin Martinez Protein [Mass/Vol] 6.5 g/dL Normal 6.4-8.2 [facility] Comment on above: Performed By: #### U RCX #### [facility] [address] [place] [address] Dr. Caitlin Martinez Sodium [Moles/Vol] 139 mmol/L Normal 136-145 [facility] Comment on above: Performed By: #### U RCX #### [facility] [address] [address] [address] Caitlin Martinez Urea nitrogen [Mass/Vol] 7.0 mg/dL Normal 7.0-18.0 [facility] Comment on above: Performed By: #### U RCX #### [facility] [address] [place] [address] Dr. Caitlin Martinez Urea nitrogen/Creatinine [Mass ratio] 12.5 mg/mg Normal [facility] Comment on above: Performed By: #### U RCX #### [facility] [address] [place] [address] Dr. Caitlin Martinez TROPONIN, HIGH SENSITIVITYon 02-10-2022 HSTROP <4.0 Normal 4.0-51.3 [facility] Comment on above: Result Comment: CUT- OFF POINTS HAVE BEEN ESTABLISHED BASED ON THE FOURTH UNIVERSAL DEFINITIONS OF MYOCARDIAL INFARCTION. THE UPPER REFERENCE LIMIT (URL) OF TROPONIN, DEFINED THE 99TH PERCENTILE OF cTnI DISTRIBUTION IN A REFERENCE POPULATION, HAS BEEN CONFIRMED THE DECISION THRESHOLD FOR DE DIAGNOSIS. Performed By: #### U RCX #### [facility] [address] [place] [address] Dr. Caitlin Martinez CBC AUTO DIFFon 02-09-2022 BASO # 0.1 103/ul Normal 0.0-0.1 [facility] Comment on above: Performed By: #### U RCX #### [facility] [address] [place] [address] Dr. Caitlin Martinez Basophils/100 WBC (Bld) 0.6 % Normal 0.2-2.0 [facility] Comment on above: Performed By: #### U RCX #### [facility] [address] [place] [address] Dr. Caitlin Martinez EO # 0.3 103/ul Normal 0.0-0.7 [facility] Comment on above: Performed By: #### U RCX #### [facility] [address] [address] [address] Caitlin Martinez Eosinophils/100 WBC (Bld) 2.3 % Normal 0.9-7.0 [facility] Comment on above: Performed By: #### U RCX #### [facility] [address] [address] [address] Caitlin Martinez Erythrocyte distribution width (RBC) [Ratio] 14.6 % Normal 11.0-15.0 [facility] Comment on above: Performed By: #### U RCX #### [facility] [address] [place] [address] Dr. Caitlin Martinez Hematocrit (Bld) [Volume fraction] 28.8 % Critically low 36.0-48.0 [facility] Comment on above: Performed By: #### U RCX #### [facility] [address] [place] [address] Dr. Caitlin Martinez Hemoglobin (Bld) [Mass/Vol] 9.0 g/dL Critically low 12.0-16.0 [facility] Comment on above: Performed By: #### U RCX #### [facility] [address] [place] [address] Dr. Caitlin Martinez IG # 0.20 10e3/ul Critically high 0.00-0.03 [facility] Comment on above: Performed By: #### U RCX #### [facility] [address] [place] [address] Dr. Caitlin Martinez IG % 1.5 % Critically high 0.0-0.5 [facility] Comment on above: Performed By: #### U RCX #### [facility] [address] [place] [address] Dr. Caitlin Martinez LYMPH # 3.0 103/ul Normal 1.2-3.8 [facility] Comment on above: Performed By: #### U RCX #### [facility] [address] [place] [address] Dr. Caitlin Martinez Lymphocytes/100 WBC (Bld) 22.2 % Normal 20.5-60.0 [facility] Comment on above: Performed By: #### U RCX #### [facility] [address] [place] [address] Dr. Caitlin Martinez MANUAL DIFF REQ NO Normal [facility] Comment on above: Performed By: #### U RCX #### [facility] [address] [place] [address] Dr. Caitlin Martinez MCH (RBC) [Entitic mass] 26.2 pg Critically low 26.7-34.0 [facility] Comment on above: Performed By: #### U RCX #### [facility] [address] [place] [address] Dr. Caitlin Martinez MCHC (RBC) [Mass/Vol] 31.3 g/dL Normal 29.9-35.2 [facility] Comment on above: Performed By: #### U RCX #### [facility] [address] [place] [address] Dr. Caitlin Martinez MCV (RBC) [Entitic vol] 83.7 fL Normal 81.0-99.0 [facility] Comment on above: Performed By: #### U RCX #### [facility] [address] [place] [address] Dr. Caitlin Martinez MONO # 1.3 103/ul Critically high 0.3-0.8 [facility] Comment on above: Performed By: #### U RCX #### [facility] [address] [place] [address] Dr. Caitlin Martinez Monocytes/100 WBC (Bld) 9.8 % Normal 1.7-12.0 [facility] Comment on above: Performed By: #### U RCX #### [facility] [address] [place] [address] Dr. Caitlin Martinez NEUT # 8.5 103/ul Critically high 1.4-6.5 [facility] Comment on above: Performed By: #### U RCX #### [facility] [address] [address] [address] Caitlin Martinez Neutrophils/100 WBC (Bld) 63.6 % Normal 43.0-75.0 [facility] Comment on above: Performed By: #### U RCX #### [facility] [address] [address] [address] Caitlin Martinez Platelet mean volume (Bld) [Entitic vol] 9.1 fL Critically low 9.5-13.5 [facility] Comment on above: Performed By: #### U RCX #### [facility] [address] [address] [address] Caitlin Martinez PLT 355 103/ul Normal 150-450 [facility] Comment on above: Performed By: #### U RCX #### [facility] [address] [place] [address] Dr. Caitlin Martinez RBC 3.44 106/ul Critically low 4.20-5.40 [facility] Comment on above: Performed By: #### U RCX #### [facility] [address] [address] [address] Caitlin Martinez WBC 13.3 103/ul Critically high 4.0-11.0 [facility] Comment on above: Performed By: #### U RCX #### [facility] [address] [place] [address] Dr. Caitlin Martinez SCREENon 02-09-2022 SCREEN Negative Normal [facility] Comment on above: Performed By: #### F ETSCRN #### [facility] [address] [address] [address] Caitlin Martinez CBC AUTO DIFFon 02-08-2022 BASO # 0.1 103/ul Normal 0.0-0.1 [facility] Comment on above: Performed By: #### U RCX #### [facility] [address] [address] [address] Caitlin Martinez Basophils/100 WBC (Bld) 0.4 % Normal 0.2-2.0 [facility] Comment on above: Performed By: #### U RCX #### [facility] [address] [address] [address] Caitlin Martinez EO # 0.3 103/ul Normal 0.0-0.7 [facility] Comment on above: Performed By: #### U RCX #### [facility] [address] [place] [address] Dr. Caitlin Martinez Eosinophils/100 WBC (Bld) 2.6 % Normal 0.9-7.0 [facility] Comment on above: Performed By: #### U RCX #### [facility] [address] [place] [address] Dr. Caitlin Martinez Erythrocyte distribution width (RBC) [Ratio] 14.7 % Normal 11.0-15.0 [facility] Comment on above: Performed By: #### U RCX #### [facility] [address] [place] [address] Dr. Caitlin Martinez Hematocrit (Bld) [Volume fraction] 30.6 % Critically low 36.0-48.0 [facility] Comment on above: Performed By: #### U RCX #### [facility] [address] [place] [address] Dr. Caitlin Martinez Hemoglobin (Bld) [Mass/Vol] 9.7 g/dL Critically low 12.0-16.0 [facility] Comment on above: Performed By: #### U RCX #### [facility] [address] [place] [address] Dr. Caitlin Martinez IG # 0.15 10e3/ul Critically high 0.00-0.03 [facility] Comment on above: Performed By: #### U RCX #### [facility] [address] [place] [address] Dr. Caitlin Martinez IG % 1.3 % Critically high 0.0-0.5 [facility] Comment on above: Performed By: #### U RCX #### [facility] [address] [place] [address] Dr. Caitlin Martinez LYMPH # 2.8 103/ul Normal 1.2-3.8 [facility] Comment on above: Performed By: #### U RCX #### [facility] [address] [address] [address] Caitlin Martinez Lymphocytes/100 WBC (Bld) 24.8 % Normal 20.5-60.0 [facility] Comment on above: Performed By: #### U RCX #### [facility] [address] [address] [address] Caitlin Martienz MANUAL DIFF REQ NO Normal [facility] Comment on above: Performed By: #### U RCX #### [facility] [address] [address] [address] Caitlin Martinez MCH (RBC) [Entitic mass] 26.6 pg Critically low 26.7-34.0 [facility] Comment on above: Performed By: #### U RCX #### [facility] [address] [place] [address] Dr. Caitlin Martinez MCHC (RBC) [Mass/Vol] 31.7 g/dL Normal 29.9-35.2 [facility] Comment on above: Performed By: #### U RCX #### [facility] [address] [place] [address] Dr. Caitlin Martinez MCV (RBC) [Entitic vol] 83.8 fL Normal 81.0-99.0 [facility] Comment on above: Performed By: #### U RCX #### [facility] [address] [place] [address] Dr. Caitlin Martinez MONO # 1.0 103/ul Critically high 0.3-0.8 [facility] Comment on above: Performed By: #### U RCX #### [facility] [address] [place] [address] Dr. Caitlin Martinez Monocytes/100 WBC (Bld) 8.7 % Normal 1.7-12.0 [facility] Comment on above: Performed By: #### U RCX #### [facility] [address] [place] [address] Dr. Caitlin Martinez NEUT # 7.0 103/ul Critically high 1.4-6.5 [facility] Comment on above: Performed By: #### U RCX #### [facility] [address] [address] [address] Caitlin Martinez Neutrophils/100 WBC (Bld) 62.2 % Normal 43.0-75.0 [facility] Comment on above: Performed By: #### U RCX #### [facility] [address] [address] [address] Caitlin Martinez Platelet mean volume (Bld) [Entitic vol] 9.0 fL Critically low 9.5-13.5 [facility] Comment on above: Performed By: #### U RCX #### [facility] [address] [address] [address] Caitlin Martinez PLT 373 103/ul Normal 150-450 [facility] Comment on above: Performed By: #### U RCX #### [facility] [address] [place] [address] Dr. Caitlin Martinez RBC 3.65 106/ul Critically low 4.20-5.40 [facility] Comment on above: Performed By: #### U RCX #### [facility] [address] [address] [address] Caitlin Martinez WBC 11.3 103/ul Critically high 4.0-11.0 [facility] Comment on above: Performed By: #### U RCX #### [facility] [address] [place] [address] Dr. Caitlin Martinez [facility] SARS-CoV-2 (COVID-19) RNA JONATAN+probe Ql (Unsp spec) Not detected Normal NOT DETECTED [facility] Comment on above: Result Comment: When [...] for this test is supported by the [employer] of Health and Human Service's declaration [...] used). Performed By: #### C BC #### [facility] [address] [place] [address] Dr. Caitlin Martinez DIRECT COOMBSon 02-08-2022 DIRECT EDWINA Negative Normal [facility] Comment on above: Performed By: #### D IRCMB, ABID #### [facility] [address] [place] [address] Dr. Caitlin Martinez DRUG SCREEN RAPID (URINE)on 02-08-2022 AMP Negative Normal NEGATIVE [facility] Comment on above: Performed By: #### C BC #### [facility] [address] [place] [address] Dr. Caitlin Martinez BAR Negative Normal NEGATIVE [facility] Comment on above: Performed By: #### C BC #### [facility] [address] [place] [address] Dr. Caitlin Martinez BUP Negative Normal NEGATIVE [facility] Comment on above: Performed By: #### C BC #### [facility] [address] [place] [address] Dr. Caitlin Martinez BZO Negative Normal NEGATIVE [facility] Comment on above: Performed By: #### C BC #### [facility] [address] [place] [address] Dr. Caitlin Martinez JEANNA Negative Normal NEGATIVE [facility] Comment on above: Performed By: #### C BC #### [facility] [address] [place] [address] Dr. Caitlin Martinez CUT-OFFS SEE BELOW Normal [facility] Comment on above: Result Comment: AMP [...] ng/mL Performed By: #### C BC #### [facility] [address] [place] [address] Dr. Caitlin Martinez DRUG CUT HEADER DRUG CLASS TEST SYSTEM CUT-OFF CONCENTRATIONS ARE FOLLOWS: Normal [facility] Comment on above: Performed By: #### C BC #### [facility] [address] [place] [address] Dr. Caitlin Martinez mAMP Negative Normal NEGATIVE [facility] Comment on above: Performed By: #### C BC #### [facility] [address] [place] [address] Dr. Caitlin Martinez MTD Negative Normal NEGATIVE [facility] Comment on above: Performed By: #### C BC #### [facility] [address] [place] [address] Dr. Caitlin Martinez OPI Negative Normal NEGATIVE [facility] Comment on above: Performed By: #### C BC #### [facility] [address] [place] [address] Dr. aCitlin Martinez OXY Negative Normal NEGATIVE [facility] Comment on above: Performed By: #### C BC #### [facility] [address] [place] [address] Dr. Caitlin Martinez PCP Negative Normal NEGATIVE [facility] Comment on above: Performed By: #### C BC #### [facility] [address] [place] [address] Dr. Caitlin Martinez PPX Negative Normal NEGATIVE [facility] Comment on above: Performed By: #### C BC #### [facility] [address] [place] [address] Dr. Caitlin Martinez TCA Negative Normal NEGATIVE [facility] Comment on above: Performed By: #### C BC #### [facility] [address] [place] [address] Dr. Caitlin Martinez THC Negative Normal NEGATIVE [facility] Comment on above: Performed By: #### C BC #### [facility] [address] [place] [address] Dr. Caitlin Martinez TYPE AND SCREENon 02-08-2022 TYPE AND SCREEN Negative Normal [facility] Comment on above: Performed By: #### I HORACIO #### [facility] [address] [place] [address] Dr. Caitlin Martinez US PREG BIOPHY W [...] DAVID BLACKMON Date: 2022-02-05 16:28 Normal [facility] AMNISUREon 01-25-2022 AMNISURE Negative Normal NEGATIVE [facility] Comment on above: Performed By: #### A MNI #### [facility] [address] [place] [address] Dr. Caitlin Martinez CULTURE URINEon 01-25-2022 CULTURE URINE Culture Observations : No growth Normal [facility] Comment on above: Performed By: #### U RCX #### [facility] [address] [place] [address] Dr. Caitlin Martinez UA (CLEAN/CATCH) ONCOLOGY SOCIAL WORK/MICRO I F IND.on 01-25-2022 Bilirubin Ql (U) Negative Normal NEGATIVE [facility] Comment on above: Performed By: #### C VDTBH #### [facility] [address] [place] [address] Dr. Caitlin Martinez Clarity (U) SL CLOUDY Abnormal CLEAR [facility] Comment on above: Performed By: #### C VDTBH #### [facility] [address] [address] [address] Caitlin Martinez Color (U) LT. YELLOW Normal YELLOW [facility] Comment on above: Performed By: #### C VDTBH #### [facility] [address] [place] [address] Dr. Caitlin Martinez Glucose Ql (U) Negative Normal NEGATIVE [facility] Comment on above: Performed By: #### C VDTBH #### [facility] [address] [address] [address] Caitlin Martinez Hemoglobin Ql (U) TRACE-INTACT Abnormal NEGATIVE [facility] Comment on above: Performed By: #### C VDTBH #### [facility] [address] [place] [address] Dr. Caitlin Martinez Ketones Ql (U) Negative Normal NEGATIVE [facility] Comment on above: Performed By: #### C VDTBH #### [facility] [address] [place] [address] Dr. Caitlin Martinez LEUKOCYTES TRACE Abnormal NEGATIVE [facility] Comment on above: Performed By: #### C VDTBH #### [facility] [address] [place] [address] Dr. Caitlin Martinez Nitrite Ql (U) Negative Normal NEGATIVE [facility] Comment on above: Performed By: #### C VDTBH #### [facility] [address] [place] [address] Dr. Caitlin Martinez pH (U) 6.5 [pH] Normal 5-9 [facility] Comment on above: Performed By: #### C VDTBH #### [facility] [address] [place] [address] Dr. Caitlin Martinez SPEC GRAVITY 1.020 Normal 1.005-<=1.025 [facility] Comment on above: Performed By: #### C VDTBH #### [facility] [address] [place] [address] Dr. Caitlin Martinez UA PROTEIN Negative Normal NEGATIVE/ TRACE [facility] Comment on above: Performed By: #### C VDTBH #### [facility] [address] [place] [address] Dr. Caitlin Martinez UR MICRO IND INDICATED Normal [facility] Comment on above: Performed By: #### C VDTBH #### [facility] [address] [place] [address] Dr. Caitlin Martinez Urobilinogen Qn (U) 0.2 {Barbara'U}/dL Normal 0.2 - 1. 0 [facility] Comment on above: Performed By: #### C VDTBH #### [facility] [address] [place] [address] Dr. Caitlin Martinez URINE MICROSCOPIC ONLYon BACTERIA MODERATE Abnormal NONE SEEN [facility] Comment on above: Performed By: #### C VDTBH #### [facility] [address] [place] [address] Dr. Caitlin Martinez Bacteria identified Cx Nom (U) INDICATED Normal [facility] Comment on above: Performed By: #### C VDTBH #### [facility] [address] [place] [address] Dr. Caitlin Martinez CAST NONE SEEN Normal NONE SEEN [facility] Comment on above: Performed By: #### C VDTBH #### [facility] [address] [place] [address] Dr. Caitlin Martinez Crystals LM Nom (Urine sed) NONE SEEN Normal NONE SEEN [facility] Comment on above: Performed By: #### C VDTBH #### [facility] [address] [place] [address] Dr. Caitlin Martinez Epithelial cells LM Ql (Urine sed) FEW Abnormal NONE SEEN /RARE [facility] Comment on above: Performed By: #### C VDTBH #### [facility] [address] [place] [address] Dr. Caitlin Martinez MUCOUS TRACE Abnormal NONE SEEN [facility] Comment on above: Performed By: #### C VDTBH #### [facility] [address] [place] [address] Dr. Caitlin Martinez RBC 2-5 Abnormal 0-2 [facility] Comment on above: Performed By: #### C VDTBH #### [facility] [address] [place] [address] Dr. Caitlin Martinez WBC 0-2 Abnormal NONE SEEN [facility] Comment on above: Performed By: #### C VDTBH #### [facility] [address] [place] [address] Dr. Caitlin Martinez AMYLASEon 01-16-2022 Amylase [Catalytic activity/Vol] 49 U/L Normal 25-115 [facility] Comment on above: Performed By: #### C VDTBH #### [facility] [address] [place] [address] Dr. Caitlin Martinez BUNon 01-16-2022 Urea nitrogen [Mass/Vol] 3.0 mg/dL Critically low 7.0-18.0 [facility] Comment on above: Performed By: #### C BC #### [facility] [address] [place] [address] Dr. Caitlin Martinez CBC AUTO DIFFon 01-16-2022 BASO # 0.1 103/ul Normal 0.0-0.1 [facility] Comment on above: Performed By: #### U RCX #### [facility] [address] [place] [address] Dr. Caitlin Martinez Basophils/100 WBC (Bld) 0.6 % Normal 0.2-2.0 [facility] Comment on above: Performed By: #### U RCX #### [facility] [address] [place] [address] Dr. Caitlin Martinez EO # 0.3 103/ul Normal 0.0-0.7 [facility] Comment on above: Performed By: #### U RCX #### [facility] [address] [place] [address] Dr. Caitlin Martinez Eosinophils/100 WBC (Bld) 2.6 % Normal 0.9-7.0 [facility] Comment on above: Performed By: #### U RCX #### [facility] [address] [place] [address] Dr. Caitlin Martinez Erythrocyte distribution width (RBC) [Ratio] 14.4 % Normal 11.0-15.0 [facility] Comment on above: Performed By: #### U RCX #### [facility] [address] [address] [address] Caitlin Martinez Hematocrit (Bld) [Volume fraction] 28.4 % Critically low 36.0-48.0 [facility] Comment on above: Performed By: #### U RCX #### [facility] [address] [address] [address] Caitlin Martinez Hemoglobin (Bld) [Mass/Vol] 9.0 g/dL Critically low 12.0-16.0 [facility] Comment on above: Performed By: #### U RCX #### [facility] [address] [place] [address] Dr. Caitlin Martinez IG # 0.11 10e3/ul Critically high 0.00-0.03 [facility] Comment on above: Performed By: #### U RCX #### [facility] [address] [place] [address] Dr. Caitlin Martinez IG % 1.1 % Critically high 0.0-0.5 [facility] Comment on above: Performed By: #### U RCX #### [facility] [address] [place] [address] Dr. Caitlin Martinez LYMPH # 2.2 103/ul Normal 1.2-3.8 [facility] Comment on above: Performed By: #### U RCX #### [facility] [address] [place] [address] Dr. Caitlin Martinez Lymphocytes/100 WBC (Bld) 21.0 % Normal 20.5-60.0 [facility] Comment on above: Performed By: #### U RCX #### [facility] [address] [place] [address] Dr. Caitlin Martinez MANUAL DIFF REQ NO Normal [facility] Comment on above: Performed By: #### U RCX #### [facility] [address] [place] [address] Dr. Caitlin Martinez MCH (RBC) [Entitic mass] 28.2 pg Normal 26.7-34.0 [facility] Comment on above: Performed By: #### U RCX #### [facility] [address] [address] [address] Caitlin Martinez MCHC (RBC) [Mass/Vol] 31.7 g/dL Normal 29.9-35.2 [facility] Comment on above: Performed By: #### U RCX #### [facility] [address] [address] [address] Caitlin Martinez MCV (RBC) [Entitic vol] 89.0 fL Normal 81.0-99.0 [facility] Comment on above: Performed By: #### U RCX #### [facility] [address] [address] [address] Caitlin Martinez MONO # 0.9 103/ul Critically high 0.3-0.8 [facility] Comment on above: Performed By: #### U RCX #### [facility] [address] [address] [address] Caitlin Martinez Monocytes/100 WBC (Bld) 8.9 % Normal 1.7-12.0 [facility] Comment on above: Performed By: #### U RCX #### [facility] [address] [address] [address] Caitlin Martinez NEUT # 6.8 103/ul Critically high 1.4-6.5 [facility] Comment on above: Performed By: #### U RCX #### [facility] [address] [address] [address] Caitlin Martinez Neutrophils/100 WBC (Bld) 65.8 % Normal 43.0-75.0 [facility] Comment on above: Performed By: #### U RCX #### [facility] [address] [address] [address] Caitlin Martinez Platelet mean volume (Bld) [Entitic vol] 8.6 fL Critically low 9.5-13.5 [facility] Comment on above: Performed By: #### U RCX #### [facility] [address] [address] [address] Caitlin Martinez PLT 322 103/ul Normal 150-450 [facility] Comment on above: Performed By: #### U RCX #### [facility] [address] [address] [address] Caitlin Martinez RBC 3.19 106/ul Critically low 4.20-5.40 [facility] Comment on above: Performed By: #### U RCX #### [facility] [address] [address] [address] Caitlin Martinez WBC 10.3 103/ul Normal 4.0-11.0 [facility] Comment on above: Performed By: #### U RCX #### [facility] [address] [address] [address] Caitlin Martinez CREATININEon 01-16-2022 Creatinine [Mass/Vol] 0.55 mg/dL Normal 0.55-1.02 [facility] Comment on above: Performed By: #### C VDTBH #### [facility] [address] [address] [address] Caitlin Martinez EGFR-AF OMANI >60 Normal >=60 [facility] Comment on above: Performed By: #### C VDTBH #### [facility] [address] [address] [address] Caitlin Martinez EGFR-NON AF OMANI >60 Normal >=60 [facility] Comment on above: Performed By: #### C VDTBH #### [facility] [address] [address] [address] Caitlin Martinez ELECTROLYTESon 01-16-2022 Anion gap [Moles/Vol] 13.6 mmol/L Normal [facility] Comment on above: Performed By: #### C VDTBH #### [facility] [address] [address] [address] Caitlin Martinez Chloride [Moles/Vol] 106 mmol/L Normal 98-107 [facility] Comment on above: Performed By: #### C VDTBH #### [facility] [address] [address] [address] Caitlin Martinez CO2 [Moles/Vol] 22.9 mmol/L Normal 21.0-32.0 [facility] Comment on above: Performed By: #### C VDTBH #### [facility] [address] [place] [address] Dr. Caitlin Martinez Potassium [Moles/Vol] 3.5 mmol/L Normal 3.5-5.1 [facility] Comment on above: Performed By: #### C VDTBH #### [facility] [address] [place] [address] Dr. Caitlin Martinez Sodium [Moles/Vol] 139 mmol/L Normal 136-145 [facility] Comment on above: Performed By: #### C VDTBH #### [facility] [address] [place] [address] Dr. Caitlin Martinez LIPASEon 01-16-2022 Lipase [Catalytic activity/Vol] 66.0 U/L Critically low 73.0-393.0 [facility] Comment on above: Performed By: #### C BC #### [facility] [address] [place] [address] Dr. Caitlin Martinez SGOTon 01-16-2022 AST [Catalytic activity/Vol] 12 U/L Critically low 15-37 [facility] Comment on above: Performed By: #### C VDTBH #### [facility] [address] [place] [address] Dr. Caitlin Martinez SGPTon 01-16-2022 ALT [Catalytic activity/Vol] 9 U/L Critically low 14-59 [facility] Comment on above: Performed By: #### C VDTBH #### [facility] [address] [place] [address] Dr. Caitlin Martinez CBC AUTO DIFFon 01-15-2022 BASO # 0.1 103/ul Normal 0.0-0.1 [facility] Comment on above: Performed By: #### C VDTBH #### [facility] [address] [place] [address] Dr. Caitlin Martinez Basophils/100 WBC (Bld) 0.4 % Normal 0.2-2.0 [facility] Comment on above: Performed By: #### C VDTBH #### [facility] [address] [place] [address] Dr. Caitlin Martinez EO # 0.2 103/ul Normal 0.0-0.7 [facility] Comment on above: Performed By: #### C VDTBH #### [facility] [address] [place] [address] Dr. Caitlin Martinez Eosinophils/100 WBC (Bld) 1.4 % Normal 0.9-7.0 [facility] Comment on above: Performed By: #### C VDTBH #### [facility] [address] [place] [address] Dr. Caitlin Martinez Erythrocyte distribution width (RBC) [Ratio] 14.1 % Normal 11.0-15.0 [facility] Comment on above: Performed By: #### C VDTBH #### [facility] [address] [place] [address] Dr. Caitlin Martinez Hematocrit (Bld) [Volume fraction] 28.4 % Critically low 36.0-48.0 [facility] Comment on above: Performed By: #### C VDTBH #### [facility] [address] [place] [address] Dr. Caitlin Martinez Hemoglobin (Bld) [Mass/Vol] 9.0 g/dL Critically low 12.0-16.0 [facility] Comment on above: Performed By: #### C VDTBH #### [facility] [address] [place] [address] Dr. Caitlin Martinez IG # 0.18 10e3/ul Critically high 0.00-0.03 [facility] Comment on above: Performed By: #### C VDTBH #### [facility] [address] [place] [address] Dr. Caitlin Martinez IG % 1.3 % Critically high 0.0-0.5 [facility] Comment on above: Performed By: #### C VDTBH #### [facility] [address] [place] [address] Dr. Caitlin Martinez LYMPH # 2.4 103/ul Normal 1.2-3.8 [facility] Comment on above: Performed By: #### C VDTBH #### [facility] [address] [place] [address] Dr. Caitlin Martinez Lymphocytes/100 WBC (Bld) 16.8 % Critically low 20.5-60.0 [facility] Comment on above: Performed By: #### C VDTBH #### [facility] [address] [place] [address] Dr. Caitlin Martinez MANUAL DIFF REQ NO Normal [facility] Comment on above: Performed By: #### C VDTBH #### [facility] [address] [place] [address] Dr. Caitlin Martinez MCH (RBC) [Entitic mass] 27.9 pg Normal 26.7-34.0 [facility] Comment on above: Performed By: #### C VDTBH #### [facility] [address] [place] [address] Dr. Caitlin Martinez MCHC (RBC) [Mass/Vol] 31.7 g/dL Normal 29.9-35.2 [facility] Comment on above: Performed By: #### C VDTBH #### [facility] [address] [place] [address] Dr. Caitlin Martinez MCV (RBC) [Entitic vol] 87.9 fL Normal 81.0-99.0 [facility] Comment on above: Performed By: #### C VDTBH #### [facility] [address] [place] [address] Dr. Caitlin Martinez MONO # 0.9 103/ul Critically high 0.3-0.8 [facility] Comment on above: Performed By: #### C VDTBH #### [facility] [address] [place] [address] Dr. Caitlin Martinez Monocytes/100 WBC (Bld) 6.7 % Normal 1.7-12.0 [facility] Comment on above: Performed By: #### C VDTBH #### [facility] [address] [place] [address] Dr. Caitlin Martinez NEUT # 10.3 103/ul Critically high 1.4-6.5 [facility] Comment on above: Performed By: #### C VDTBH #### [facility] [address] [address] [address] Caitlin Martinez Neutrophils/100 WBC (Bld) 73.4 % Normal 43.0-75.0 [facility] Comment on above: Performed By: #### C VDTBH #### [facility] [address] [address] [address] Caitlin Martinez Platelet mean volume (Bld) [Entitic vol] 9.0 fL Critically low 9.5-13.5 [facility] Comment on above: Performed By: #### C VDTBH #### [facility] [address] [address] [address] Caitlin Martinez PLT 318 103/ul Normal 150-450 [facility] Comment on above: Performed By: #### C VDTBH #### [facility] [address] [address] [address] Caitlin Martinez RBC 3.23 106/ul Critically low 4.20-5.40 [facility] Comment on above: Performed By: #### C VDTBH #### [facility] [address] [address] [address] Caitlin Martinez WBC 14.0 103/ul Critically high 4.0-11.0 [facility] Comment on above: Performed By: #### C VDTBH #### [facility] [address] [address] [address] ABD/PELVIS WO CONon [...] DAVID BLACKMON Date: 2022-01-15 16:31 Normal [facility] CULTURE URINEon 01-15-2022 CULTURE URINE Culture Observations : LIGHT GROWTH OF MIXED GENITAL COSME. NO POTENTIAL PATHOGENS SEEN. Normal [facility] Comment on above: Performed By: #### U RCX #### [facility] [address] [place] [address] Dr. Caitlin Martinez UA (CLEAN/CATCH) ONCOLOGY SOCIAL WORK/MICRO I F IND.on 01-15-2022 Bilirubin Ql (U) Negative Normal NEGATIVE [facility] Comment on above: Performed By: #### C BC #### [facility] [address] [place] [address] Dr. Caitlin Martinez Clarity (U) CLEAR Normal CLEAR [facility] Comment on above: Performed By: #### C BC #### [facility] [address] [place] [address] Dr. Caitlin Martinez Color (U) LT. YELLOW Normal YELLOW [facility] Comment on above: Performed By: #### C BC #### [facility] [address] [place] [address] Dr. Caitlin Martinez Glucose Ql (U) Negative Normal NEGATIVE [facility] Comment on above: Performed By: #### C BC #### [facility] [address] [place] [address] Dr. Caitlin Martinez Hemoglobin Ql (U) Negative Normal NEGATIVE [facility] Comment on above: Performed By: #### C BC #### [facility] [address] [place] [address] Dr. Caitlin Martinez Ketones Ql (U) Negative Normal NEGATIVE [facility] Comment on above: Performed By: #### C BC #### [facility] [address] [place] [address] Dr. Caitlin Martinez LEUKOCYTES TRACE Abnormal NEGATIVE [facility] Comment on above: Performed By: #### C BC #### [facility] [address] [place] [address] Dr. Caitlin Martinez Nitrite Ql (U) Negative Normal NEGATIVE [facility] Comment on above: Performed By: #### C BC #### [facility] [address] [place] [address] Dr. Caitlin Martinez pH (U) 7.0 [pH] Normal 5-9 [facility] Comment on above: Performed By: #### C BC #### [facility] [address] [place] [address] Dr. Caitlin Martinez SPEC GRAVITY 1.010 Normal 1.005-<=1.025 [facility] Comment on above: Performed By: #### C BC #### [facility] [address] [place] [address] Dr. Caitlin Martinez UA PROTEIN Negative Normal NEGATIVE/ TRACE [facility] Comment on above: Performed By: #### C BC #### [facility] [address] [place] [address] Dr. Caitlin Martinez UR MICRO IND INDICATED Normal [facility] Comment on above: Performed By: #### C BC #### [facility] [address] [place] [address] Dr. Caitlin Martinez Urobilinogen Qn (U) 0.2 {Barbara'U}/dL Normal 0.2 - 1. 0 [facility] Comment on above: Performed By: #### C BC #### [facility] [address] [place] [address] Dr. Caitlin Martinez URINE MICROSCOPIC ONLYon BACTERIA MODERATE Abnormal NONE SEEN [facility] Comment on above: Performed By: #### C BC #### [facility] [address] [place] [address] Dr. Caitlin Martinez Bacteria identified Cx Nom (U) INDICATED Normal [facility] Comment on above: Performed By: #### C BC #### [facility] [address] [place] [address] Dr. Caitlin Martinez CAST NONE SEEN Normal NONE SEEN [facility] [facility] Comment on above: Performed By: #### C BC #### [facility] [address] [place] [address] Dr. Caitlin Martinez Crystals LM Nom (Urine sed) NONE SEEN Normal NONE SEEN [facility] Comment on above: Performed By: #### C BC #### [facility] [address] [place] [address] Dr. Caitlin Martinez Epithelial cells LM Ql (Urine sed) MODERATE Abnormal NONE SEEN /RARE [facility] Comment on above: Performed By: #### C BC #### [facility] [address] [place] [address] Dr. Caitlin Martinez MUCOUS NONE SEEN Normal NONE SEEN [facility] Comment on above: Performed By: #### C BC #### [facility] [address] [place] [address] Dr. Caitlin Martinez RBC NONE SEEN Abnormal 0-2 [facility] Comment on above: Performed By: #### C BC #### [facility] [address] [place] [address] Dr. Caitlin Martinez WBC 2-5 Abnormal NONE SEEN [facility] Comment on above: Performed By: #### C BC #### [facility] [address] [place] [address] Dr. Caitlin Martinez US APPENDIXon 01-15-2022 US [...] DAVID BLACKMON Date: 2022-01-15 14:14 Normal [facility] US PREG GROWTHon 01-15-2022 US PREG [...] DAVID BLACKMON Date: 2022-01-15 10:59 Normal [facility] US PREG PLACENTAon US PREG PLACENTA [...] DAVID BLACKMON Date: 2022-01-15 10:57 Normal [facility] UA (CLEAN/CATCH) ONCOLOGY SOCIAL WORK/MICRO I F IND.on 12-29-2021 Bilirubin Ql (U) Negative Normal NEGATIVE [facility] Comment on above: Performed By: #### C BC #### [facility] [address] [place] [address] Dr. Caitlin Martinez Clarity (U) CLEAR Normal CLEAR [facility] Comment on above: Performed By: #### C BC #### [facility] [address] [place], [place] [address] Dr. Caitlin Martinez Color (U) LT. YELLOW Normal YELLOW [facility] Comment on above: Performed By: #### C BC #### [facility] [address] [address] [address] Caitlin Martinez Glucose Ql (U) Negative Normal NEGATIVE [facility] Comment on above: Performed By: #### C BC #### [facility] [address] [place] [address] Dr. Caitlin Martinez Hemoglobin Ql (U) Negative Normal NEGATIVE [facility] Comment on above: Performed By: #### C BC #### [facility] [address] [address] [address] Caitlin Martniez Ketones Ql (U) Negative Normal NEGATIVE [facility] Comment on above: Performed By: #### C BC #### [facility] [address] [place] [address] Dr. Caitlin Martinez LEUKOCYTES Negative Normal NEGATIVE [facility] Comment on above: Performed By: #### C BC #### [facility] [address] [place] [address] Dr. Caitlin Martinez Nitrite Ql (U) Negative Normal NEGATIVE [facility] Comment on above: Performed By: #### C BC #### [facility] [address] [place] [address] Dr. Caitlin Martinez pH (U) 6.5 [pH] Normal 5-9 [facility] Comment on above: Performed By: #### C BC #### [facility] [address] [place] [address] Dr. Caitlin Martinez SPEC GRAVITY 1.020 Normal 1.005-<=1.025 [facility] Comment on above: Performed By: #### C BC #### [facility] [address] [place] [address] Dr. Caitlin Martinez UA PROTEIN Negative Normal NEGATIVE/ TRACE [facility] Comment on above: Performed By: #### C BC #### [facility] [address] [place] [address] Dr. Caitlin Martinez UR MICRO IND NOT INDICATED Normal [facility] Comment on above: Performed By: #### C BC #### [facility] [address] [place] [address] Dr. Caitlin Martinez Urobilinogen Qn (U) 1.0 {Barbara'U}/dL Normal 0.2 - 1. 0 [facility] Comment on above: Performed By: #### C BC #### [facility] [address] [place] [address] Dr. Caitlin Martinez US PREG CERVICAL LENGTHon [...] KIRK OATES Date: 2021-12-29 15:53 Normal [facility] UA (CLEAN/CATCH) ONCOLOGY SOCIAL WORK/MICRO I F IND.on 12-18-2021 Bilirubin Ql (U) Negative Normal NEGATIVE [facility] Comment on above: Performed By: #### C BC #### [facility] [address] [place] [address] Dr. Caitlin Martinez Clarity (U) CLEAR Normal CLEAR [facility] Comment on above: Performed By: #### C BC #### [facility] [address] [place] [address] Dr. Caitlin Martinez Color (U) YELLOW Normal YELLOW [facility] Comment on above: Performed By: #### C BC #### [facility] [address] [place] [address] Dr. Caitlin Martinez Glucose Ql (U) Negative Normal NEGATIVE [facility] Comment on above: Performed By: #### C BC #### [facility] [address] [place] [address] Dr. Caitlin Martinez Hemoglobin Ql (U) Negative Normal NEGATIVE [facility] Comment on above: Performed By: #### C BC #### [facility] [address] [place] [address] Dr. Caitlin Martinez Ketones Ql (U) TRACE Abnormal NEGATIVE [facility] Comment on above: Performed By: #### C BC #### [facility] [address] [place] [address] Dr. Caitlin Martinez LEUKOCYTES Negative Normal NEGATIVE [facility] Comment on above: Performed By: #### C BC #### [facility] [address] [place] [address] Dr. Caitlin Martinez Nitrite Ql (U) Negative Normal NEGATIVE [facility] Comment on above: Performed By: #### C BC #### [facility] [address] [place] [address] Dr. Caitlin Martinez pH (U) 6.0 [pH] Normal 5-9 [facility] Comment on above: Performed By: #### C BC #### [facility] [address] [place] [address] Dr. Caitlin Martinez SPEC GRAVITY 1.025 Normal 1.005-<=1.025 [facility] Comment on above: Performed By: #### C BC #### [facility] [address] [place] [address] Dr. Caitlin Martinez UA PROTEIN Negative Normal NEGATIVE/ TRACE [facility] Comment on above: Performed By: #### C BC #### [facility] [address] [place] [address] Dr. Caitlin Martinez UR MICRO IND NOT INDICATED Normal [facility] Comment on above: Performed By: #### C BC #### [facility] [address] [place] [address] Dr. Caitlin Martinez Urobilinogen Qn (U) 4 {Barbara'U}/dL Abnormal 0.2 - 1.0 [facility] Comment on above: Performed By: #### C BC #### [facility] [address] [place] [address] Dr. Caitlin Martinez RHOGAMon 11-28-2021 RHOGAM Status Information Issued Quantity 1 Product ID Rh Immune Globulin Lot Number [id number] Issue Date/Time [id number] Normal [facility] Comment on above: Performed By: #### I HORACIO #### [facility] [address] [place] [address] Dr. Caitlin Martinez TYPE AND SCREENon 11-27-2021 TYPE AND SCREEN Negative Normal [facility] Comment on above: Performed By: #### T NS #### [facility] [address] [place] [address] Dr. Caitlin Martinez CULTURE URINEon 11-23-2021 CULTURE URINE Culture Observations : No growth Normal [facility] Comment on above: Performed By: #### I HORACIO #### [facility] [address] [place] [address] Dr. Caitlin Martinez UA (CLEAN/CATCH) ONCOLOGY SOCIAL WORK/MICRO I F IND.on 11-23-2021 Bilirubin Ql (U) Negative Normal NEGATIVE [facility] Comment on above: Performed By: #### U RCX #### [facility] [address] [place] [address] Dr. Caitlin Martinez Clarity (U) CLEAR Normal CLEAR [facility] Comment on above: Performed By: #### U RCX #### [facility] [address] [place] [address] Dr. Caitlin Martinez Color (U) LT. YELLOW Normal YELLOW [facility] Comment on above: Performed By: #### U RCX #### [facility] [address] [place] [address] Dr. Caitlin Martniez Glucose Ql (U) Negative Normal NEGATIVE [facility] Comment on above: Performed By: #### U RCX #### [facility] [address] [place] [address] Dr. Caitlin Martinez Hemoglobin Ql (U) Negative Normal NEGATIVE [facility] Comment on above: Performed By: #### U RCX #### [facility] [address] [place] [address] Dr. Caitlin Martinez Ketones Ql (U) Negative Normal NEGATIVE [facility] Comment on above: Performed By: #### U RCX #### [facility] [address] [place] [address] Dr. Caitlin Martinez LEUKOCYTES SMALL Abnormal NEGATIVE [facility] Comment on above: Performed By: #### U RCX #### [facility] [address] [place] [address] Dr. Caitlin Martinez Nitrite Ql (U) Negative Normal NEGATIVE [facility] Comment on above: Performed By: #### U RCX #### [facility] [address] [place] [address] Dr. Caitlin Martinez pH (U) 6.5 [pH] Normal 5-9 [facility] Comment on above: Performed By: #### U RCX #### [facility] [address] [place] [address] Dr. Caitlin Martinez SPEC GRAVITY 1.010 Normal 1.005-<=1.025 [facility] Comment on above: Performed By: #### U RCX #### [facility] [address] [place] [address] Dr. Caitlin Martinez UA PROTEIN Negative Normal NEGATIVE/ TRACE [facility] Comment on above: Performed By: #### U RCX #### [facility] [address] [place] [address] Dr. Caitlin Martinez UR MICRO IND INDICATED Normal [facility] Comment on above: Performed By: #### U RCX #### [facility] [address] [place] [address] Dr. Caitlin Martinez Urobilinogen Qn (U) 0.2 {Barbara'U}/dL Normal 0.2 - 1. 0 [facility] Comment on above: Performed By: #### U RCX #### [facility] [address] [place] [address] Dr. Caitlin Martinez URINE MICROSCOPIC ONLYon BACTERIA TRACE Abnormal NONE SEEN [facility] Comment on above: Performed By: #### U RCX #### [facility] [address] [place] [address] Dr. Caitlin Martinez Bacteria identified Cx Nom (U) INDICATED Normal [facility] Comment on above: Performed By: #### U RCX #### [facility] [address] [place] [address] Dr. Caitlin Martinez CAST SEEN Abnormal NONE SEEN [facility] Comment on above: Performed By: #### U RCX #### [facility] [address] [place] [address] Dr. Caitlin Martinez Crystals LM Nom (Urine sed) SEEN Abnormal NONE SEEN [facility] Comment on above: Performed By: #### U RCX #### [facility] [address] [place] [address] Dr. Caitlin Martinez Epithelial cells LM Ql (Urine sed) RARE Normal NONE SEEN /RARE [facility] Comment on above: Performed By: #### U RCX #### [facility] [address] [place] [address] Dr. Caitlin Martinez MUCOUS TRACE Abnormal NONE SEEN [facility] Comment on above: Performed By: #### U RCX #### [facility] [address] [place] [address] Dr. Caitlin Martinez RBC 0-2 Normal 0-2 [facility] Comment on above: Performed By: #### U RCX #### [facility] [address] [place] [address] Dr. Caitlin Martinez WBC 2-5 Abnormal NONE SEEN [facility] Comment on above: Performed By: #### U RCX #### [facility] [address] [place] [address] Dr. Caitlin Martinez GLUCOSE - 1HRon 11-06-2021 Glucose [Mass/Vol] 131 mg/dL Critically high 74-106 [facility] Comment on above: Performed By: #### I HORACIO #### [facility] [address] [place] [address] Dr. Caitlin Martinez HEMOGRAM AND PLATELon 2021 Hematocrit (Bld) [Volume fraction] 34.2 % Critically low 36.0-48.0 [facility] Comment on above: Performed By: #### C BC #### [facility] [address] [place] [address] Dr. Caitlin Martinez Hemoglobin (Bld) [Mass/Vol] 11.3 g/dL Critically low 12.0-16.0 [facility] Comment on above: Performed By: #### C BC #### [facility] [address] [place] [address] Dr. Caitlin Martinez MCH (RBC) [Entitic mass] 31.7 pg Normal 26.7-34.0 [facility] Comment on above: Performed By: #### C BC #### [facility] [address] [place] [address] Dr. Caitlin Martinez MCHC (RBC) [Mass/Vol] 33.0 g/dL Normal 29.9-35.2 [facility] Comment on above: Performed By: #### C BC #### [facility] [address] [place] [address] Dr. Caitlin Martinez MCV (RBC) [Entitic vol] 96.1 fL Normal 81.0-99.0 [facility] Comment on above: Performed By: #### C BC #### [facility] [address] [place] [address] Dr. Caitlin Martinez PLT 372 103/ul Normal 150-450 [facility] Comment on above: Performed By: #### C BC #### [facility] [address] [place] [address] Dr. Caitlin Martinez RBC 3.56 106/ul Critically low 4.20-5.40 [facility] Comment on above: Performed By: #### C BC #### [facility] [address] [place] [address] Dr. Caitlin Martinez WBC 10.1 103/ul Normal 4.0-11.0 [facility] Comment on above: Performed By: #### C BC #### [facility] [address] [place] [address] Dr. Caitlin Martinez CHLAMYDIA/GONOCOCCUS JONATAN (SW AB/URINE/PAPon 10-31-2021 Chlamydia trachomatis, JONATAN Negative Normal Negative [facility] Comment on above: Performed By: #### C BC #### [facility] [address] [place] [address] Dr. Caitlin Martinez Neisseria gonorrhoeae, JONATAN Negative Normal Negative [facility] Comment on above: Performed By: #### C BC #### [facility] [address] [place] [address] Dr. Caitlin Martinez VAGINITIS/VAGINOSIS DNA PROB Paramjit 10-29-2021 Selena species Negative Normal Negative [facility] Comment on above: Performed By: #### U RCX #### [facility] [address] [address] [address] Caitlin Martinez Gardnerella vaginalis Negative Normal Negative [facility] Comment on above: Performed By: #### U RCX #### [facility] [address] [place] [address] Dr. Caitlin Martinez Trichomonas vaginalis Negative Normal Negative [facility] Comment on above: Performed By: #### U RCX #### [facility] [address] [place] [address] Dr. Caitlin Martinez US PREG INCOMPLETE ANATOMYon [...] DAVID BLACKMON Date: 2021-10-26 12:05 Normal [facility] CBC W MANUAL DIFFon 10-25-19 22 ATYPICAL LYMPH # Normal [facility] Comment on above: Performed By: #### U RCX #### [facility] [address] [place] [address] Dr. Caitlin Martinez ATYPICAL LYMPH % Normal [facility] Comment on above: Performed By: #### U RCX #### [facility] [address] [place] [address] Dr. Caitlin Martinez BAND # 0.1 103/ul Normal 0.0-0.3 [facility] Comment on above: Performed By: #### U RCX #### [facility] [address] [place] [address] Dr. Caitlin Martinez BAND % 1 % Normal 0-5 [facility] Comment on above: Performed By: #### U RCX #### [facility] [address] [place] [address] Dr. Caitlin Martinez BASOM # 0.00 103/ul Normal 0.00-0.10 [facility] Comment on above: Performed By: #### U RCX #### [facility] [address] [place] [address] Dr. Caitlin Martinez BASOM % 0.0 % Critically low 0.2-2.0 [facility] Comment on above: Performed By: #### U RCX #### [facility] [address] [place] [address] Dr. Caitlin Martinez BLAST # Normal [facility] Comment on above: Performed By: #### U RCX #### [facility] [address] [place] [address] Dr. Caitlin Martienz BLAST % Normal [facility] Comment on above: Performed By: #### U RCX #### [facility] [address] [place] [address] Dr. Caitlin Martinez CORRECTED WBC Normal 4.0-11.0 [facility] Comment on above: Performed By: #### U RCX #### [facility] [address] [place] [address] Dr. Caitlin Martinez EOS # 0.12 103/ul Normal 0.00-0.70 [facility] Comment on above: Performed By: #### U RCX #### [facility] [address] [place] [address] Dr. Caitlin Martinez EOS% 1.0 % Normal 0.9-7.0 [facility] Comment on above: Performed By: #### U RCX #### [facility] [address] [place] [address] Dr. Caitlin Martinez HCT 31.5 % Critically low 36.0-48.0 [facility] Comment on above: Performed By: #### U RCX #### [facility] [address] [place] [address] Dr. Caitlin Martinez HGB 10.5 g/dl Critically low 12.0-16.0 [facility] Comment on above: Performed By: #### U RCX #### [facility] [address] [place] [address] Dr. Caitlin Martinez LYMPHM # 0.37 103/ul Critically low 1.20-3.80 [facility] Comment on above: Performed By: #### U RCX #### [facility] [address] [place] [address] Dr. Caitlin Martinez LYMPHM% 3.0 % Critically low 20.5-60.0 [facility] Comment on above: Performed By: #### U RCX #### [facility] [address] [place] [address] Dr. Caitlin Martinez MCH 31.8 pg Normal 26.7-34.0 [facility] Comment on above: Performed By: #### U RCX #### [facility] [address] [place] [address] Dr. Caitlin Martinez MCHC 33.3 g/dl Normal 29.9-35.2 [facility] Comment on above: Performed By: #### U RCX #### [facility] [address] [place] [address] Dr. Caitlin Martinez MCV 95.5 fL Normal 81.0-99.0 [facility] Comment on above: Performed By: #### U RCX #### [facility] [address] [place] [address] Dr. Caitlin Martinez METAMYELOCYTE # Normal [facility] Comment on above: Performed By: #### U RCX #### [facility] [address] [place] [address] Dr. Caitlin Martinez METAMYELOCYTE % Normal [facility] Comment on above: Performed By: #### U RCX #### [facility] [address] [place] [address] Dr. Caitlin Martinez MONOM# 0.73 103/ul Normal 0.30-0.80 [facility] Comment on above: Performed By: #### U RCX #### [facility] [address] [place] [address] Dr. Caitlin Martinez MONOM% 6.0 % Normal 1.7-12.0 [facility] Comment on above: Performed By: #### U RCX #### [facility] [address] [address] [address] Caitlin Martinez MPV 9.5 fL Normal 9.5-13.5 [facility] Comment on above: Performed By: #### U RCX #### [facility] [address] [place] [address] Dr. Caitlin Martinez MYELOCYTE # Normal [facility] Comment on above: Performed By: #### U RCX #### [facility] [address] [address] [address] Caitlin Martinez MYELOCYTE % Normal [facility] Comment on above: Performed By: #### U RCX #### [facility] [address] [address] [address] Caitlin Martinez NRBC Normal [facility] Comment on above: Performed By: #### U RCX #### [facility] [address] [place] [address] Dr. Caitlin Martinez PLT 275 103/ul Normal 150-450 [facility] Comment on above: Performed By: #### U RCX #### [facility] [address] [place] [address] Dr. Caitlin Martinez RBC 3.30 106/ul Critically low 4.20-5.40 [facility] Comment on above: Performed By: #### U RCX #### [facility] [address] [place] [address] Dr. Caitlin Martinez RDW 13.6 % Normal 11.0-15.0 [facility] Comment on above: Performed By: #### U RCX #### [facility] [address] [place] [address] Dr. Caitlin Martinez SEG # 10.86 103/ul Critically high 1.40-6.50 [facility] Comment on above: Performed By: #### U RCX #### [facility] [address] [place] [address] Dr. Caitlin Martinez SEG % 89.0 % Critically high 43.0-75.0 [facility] Comment on above: Performed By: #### U RCX #### [facility] [address] [place] [address] Dr. Caitlin Martinez WBC 12.2 103/ul Critically high 4.0-11.0 [facility] Comment on above: Performed By: #### U RCX #### [facility] [address] [place] [address] Dr. Caitlin Martinez ER URINE PROFILEon 2 Bilirubin Ql (U) Negative Normal NEGATIVE [facility] Comment on above: Performed By: #### C VDTBH #### [facility] [address] [place] [address] Dr. Caitlin Martinez Clarity (U) SL CLOUDY Abnormal CLEAR [facility] Comment on above: Performed By: #### C VDTBH #### [facility] [address] [place] [address] Dr. Caitlin Martinez Color (U) YELLOW Normal YELLOW [facility] Comment on above: Performed By: #### C VDTBH #### [facility] [address] [place] [address] Dr. Caitlin Martinez ERUAHNadine A micrscopic examination will be performed if indicated. Normal [facility] Comment on above: Performed By: #### C VDTBH #### [facility] [address] [place] [address] Dr. Caitlin Martinez Glucose Ql (U) Negative Normal NEGATIVE [facility] Comment on above: Performed By: #### C VDTBH #### [facility] [address] [place] [address] Dr. Caitlin Martinez Hemoglobin Ql (U) Negative Normal NEGATIVE [facility] Comment on above: Performed By: #### C VDTBH #### [facility] [address] [place] [address] Dr. Caitlin Martinez Ketones Ql (U) >=80 Abnormal NEGATIVE [facility] Comment on above: Performed By: #### C VDTBH #### [facility] [address] [place] [address] Dr. Caitlin Martinez LEUKOCYTES Negative Normal NEGATIVE [facility] Comment on above: Performed By: #### C VDTBH #### [facility] [address] [place] [address] Dr. Caitlin Martinez Nitrite Ql (U) Negative Normal NEGATIVE [facility] Comment on above: Performed By: #### C VDTBH #### [facility] [address] [place] [address] Dr. Caitlin Martinez pH (U) 6.0 [pH] Normal 5-9 [facility] Comment on above: Performed By: #### C VDTBH #### [facility] [address] [place] [address] Dr. Caitlin Martinez SPEC GRAVITY 1.020 Normal 1.005-<=1.025 [facility] Comment on above: Performed By: #### C VDTBH #### [facility] [address] [place] [address] Dr. Caitlin Martinez UA PROTEIN Negative Normal NEGATIVE/ TRACE [facility] Comment on above: Performed By: #### C VDTBH #### [facility] [address] [place] [address] Dr. Caitlin Martinez UR MICRO IND NOT INDICATED Normal [facility] Comment on above: Performed By: #### C VDTBH #### [facility] [address] [place] [address] Dr. Caitlin Martinez Urobilinogen Qn (U) 1.0 {Barbara'U}/dL Normal 0.2 - 1. 0 [facility] Comment on above: Performed By: #### C VDTBH #### [facility] [address] [place] [address] Dr. Caitlin Martinez INFLUENZA A AND B AGon 10-24 INFLUBNEG SEE BELOW Normal [facility] Comment on above: Result Comment: Nega tive for Flu B protein antigen. Infection due to Flu B cannot be ruled out. Flu B antigen in the sample may be below the detection limit of the test. Performed By: #### C VDTBH #### [facility] [address] [place] [address] Dr. Caitlin Martinez INFLUENZA A AG Positive Abnormal NEGATIVE SEE COMMENT [facility] Comment on above: Performed By: #### C VDTBH #### [facility] [address] [place] [address] Dr. Caitlin Martinez INFLUENZA B AG Negative Normal NEGATIVE SEE COMMENT [facility] Comment on above: Performed By: #### C VDTBH #### [facility] [address] [place] [address] Dr. Caitlin Martinez INFLUPOSH SEE BELOW Normal [facility] Comment on above: Result Comment: NOTE : Live attenuated influenzae vaccine viruses can cause a positive result for a rapid influenza diagnostic test if administered up to 7 days prior to rapid testing. Performed By: #### C VDTBH #### [facility] [address] [place] [address] Dr. Caitlin Martinez INTERNAL CONTROLS Within Normal Limits Normal Wi thin Normal Limits [facility] Comment on above: Performed By: #### C VDTBH #### [facility] [address] [place] [address] Dr. Caitlin Martinez PROF CHEM 8 (BAS METB)on Anion gap [Moles/Vol] 14.4 mmol/L Normal [facility] Comment on above: Performed By: #### D IRCMB, ABID #### [facility] [address] [place] [address] Dr. Catilin Martinez Calcium [Mass/Vol] 8.4 mg/dL Critically low 8.5-10.1 [facility] Comment on above: Performed By: #### D IRCMB, ABID #### [facility] [address] [place] [address] Dr. Caitlin Martinez Chloride [Moles/Vol] 101 mmol/L Normal 98-107 [facility] Comment on above: Performed By: #### D IRCMB, ABID #### [facility] [address] [place] [address] Dr. Caitlin Martinez CO2 [Moles/Vol] 19.7 mmol/L Critically low 21.0-32.0 [facility] Comment on above: Performed By: #### D IRCMB, ABID #### [facility] [address] [place] [address] Dr. Caitlin Martinez Creatinine [Mass/Vol] 0.55 mg/dL Normal 0.55-1.02 [facility] Comment on above: Performed By: #### D IRCMB, ABID #### [facility] [address] [place] [address] Dr. Caitlin Martinez EGFR-AF OMANI >60 Normal >=60 [facility] Comment on above: Performed By: #### D IRCMB, ABID #### [facility] [address] [place] [address] Dr. Caitlin Martinez EGFR-NON AF OMANI >60 Normal >=60 [facility] Comment on above: Performed By: #### D IRCMB, ABID #### [facility] [address] [place] [address] Dr. Caitlin Martinez Glucose [Mass/Vol] 91 mg/dL Normal 74-106 [facility] Comment on above: Performed By: #### D IRCMB, ABID #### [facility] [address] [place] [address] Dr. Caitlin Martinez Potassium [Moles/Vol] 3.1 mmol/L Critically low 3.5-5.1 [facility] Comment on above: Performed By: #### D IRCMB, ABID #### [facility] [address] [place] [address] Dr. Caitlin Martinez Sodium [Moles/Vol] 132 mmol/L Critically low 136-145 [facility] Comment on above: Performed By: #### D IRCMB, ABID #### [facility] [address] [place] [address] Dr. Caitlin Martinez Urea nitrogen [Mass/Vol] 7.0 mg/dL Normal 7.0-18.0 [facility] Comment on above: Performed By: #### D IRCMB, ABID #### [facility] [address] [place] [address] Dr. Caitlin Martinez Urea nitrogen/Creatinine [Mass ratio] 12.7 mg/mg Normal [facility] Comment on above: Performed By: #### D IRCMB, ABID #### [facility] [address] [place] [address] Dr. Caitlin Martinez US PREG ANATOMY SINGLEon [...] DAVID BLACKMON Date: 2021-09-28 09:17 Normal [facility] CHEMISTRYOrdered By: SYSTEM SYSTEM on 06-21-2021 [place] [address] m[IU]/mL High 1 - 3 mIU/mL [facility] Remisol XR LUMBAR SPINE 2-3 VIEWS (S [...] gas pattern is nonobstructive. There is a htxexjet-cs-alaco amount of stool burden. IMPRESSION: No malalignment. No acute compression deformity. Eokkgxxt-hx-qfyjg amount of stool burden. [employer] Workstation ID: [id number] Dictated by: LUBA GARCÍA on [facility] Mar 05, 2020 4:09:51 PM EDT Transcribed by: KELVIN GUADALUPE on [facility] Mar 05, 2020 4:17:18 PM EDT Finalized by: LUBA GRACÍA on [facility] Mar 05, 2020 7:52:11 PM EDT [facility] Comment on above: Order Comment: Injur y/Trauma or Illness?:Illness/Other How long have you had these symptoms (acute/chronic)?:Chronic Reason for exam?:low back pain History of cancer?:n Surgeries, chemotherapy, or radiation?:n Type of Exam?:Initial Additional signs and symptoms?:fibromyalgia XR Lumbar Spine 2-3 Views (S tandard)on 03-05-2020 No malalignment. No acute compression deformity. Frkajfpm-ad-urowx amount of stool burden. [employer] Workstation ID: [id number] [facility] EXAMINATION: XR LUMBAR SPINE 2-3 VIEWS (STANDARD) [...] gas pattern is nonobstructive. There is a uqttqfro-ns-lnggx amount of stool burden. [facility] Interface, Rad In Jose Luis Speechq - [...] gas pattern is nonobstructive. There is a qtrfzopz-ct-fovlo amount of stool burden. IMPRESSION: No malalignment. No acute compression deformity. Cxprocrj-uu-zihhk amount of stool burden. [employer] Workstation ID: [id number] [facility] CNOVon 10-28-2018 CNOV Office Visit (LOUN ) SANDY GODINEZ ([id number]) 1995 F Date Time Provider Department 10/28/18 [...] Farrah Garcia MD [address] [facility] [address] Consult requested for an opinion regarding the [...] TIME: 12:44 PM Referring Provider: FARRAH GARCIA [[id number]] Allergies As of Date: 10/28/2018 (No Known [...] by WARREN RODRIGUEZ MD on 10/29/18 Normal [facility] PROGRESSon 10-28-2018 Protein mass conc HNO ID: [id number] Author: Warren Rodriguez Service: ? Author Type: Physician Type: Progress Notes Filed: 10/29/2018 3:03 PM Note Text: VASCULAR SURGERY INITIAL CONSULT SERVICE DATE: 10/28/2018 SERVICE TIME: 12:44 PM PRIMARY CARE PHYSICIAN: Farrah Garcia MD REFERRING PROVIDER: Farrah Garcia MD [address] [facility] [id number] Consult requested for an opinion regarding the [...] October 28, 2018 TIME: 12:44 PM Normal [facility] Vital Signs Date Time Vital Sign Value Performing Clinician Chiquis zaragoza 07-19-2023 09:31-0500 Body mass index (BMI) [Ratio] 26.79 kg/m2 Nom Nurse [facility] 07-19-2023 09:31-0500 Body weight 73.03 kg Nom Nurse [facility] 07-19-2023 09:31-0500 Diastolic blood pressure 72 mm[Hg] Noms Nurse [facility] 07-19-2023 09:31-0500 Systolic blood pressure 118 mm[Hg] [facility] Nurse [facility] Healthcare Encounters Encounter Date Encounter Type Care Provider Facility Start: 12-23-2023 End: 12-23-2023 ambulatory JOSE MIGUEL JUSTEN Not Available Start: 12-05-2023 End: 12-05-2023 ambulatory JOSE MIGUEL JUSTEN Not Available Start: 11-25-2023 End: 11-25-2023 ambulatory JOSE MIGUEL JUSTEN Not Available Start: 11-12-2023 End: 11-12-2023 ambulatory JOSE MIGUEL JUSTEN Not Available Start: 11-07-2023 End: 11-08-2023 ambulatory JOSE MIGUEL R JUSTEN [facility] Start: 10-15-2023 End: 10-15-2023 [...] Not Available Start: 07-08-2023 ambulatory Royer Layne acility:[facility] Start: 07-02-2023 End: 07-02-2023 ambulatory [...] Start: 03-05-2020 End: 03-06-2020 Patient encounter procedure [facility] Start: 03-05-2020 End: 03-05-2020 Subsequent hospital visit by physician Vibha Johnson Work Phone: [facility] Comment on above: Chronic [...] encounter procedure 08/19/2023 11:10 AM EST Routine [facility] OB [address] [id number] Jose Miguel Campuzano, DO [address] [place] [address] [facility] OB Start: 07-19-2023 End: 07-19-2024 ABO/Rh ABO/Rh Lab Routine Missed menses Expected: 07/19/2023 (Approximate), Expires: 07/19/[address] [facility] Comment on above: Expected: 07/19/2023 (Approximate), Expires: 07/19/2024 Start: 07-19-2023 End: 07-19-2024 Blood type and Indirect antibody screen panel - Blood Type and screen Lab Routine Missed menses Expected: 07/19/2023 (Approximate), Expires: 07/19/[address] [facility] Work Phone: Comment on above: Expected: 07/19/2023 (Approximate), Expires: 07/19/2024 Start: 07-19-2023 End: 07-19-2024 US Pelvis transvaginal US OB transvaginal Imaging Routine Missed menses Expected: 07/19/2023 (Approximate), Expires: 07/19/[address] [facility] Comment on above: Expected: 07/19/2023 (Approximate), Expires: 07/19/2024 Start: 02-16-2020 Influenza vaccinatio n given Sequential Influenza Vaccine (#1) [facility] Start: 2014 Hepatitis C antibody , confirmatory test Hepatitis C Screening [facility] Start: 08-31-2011 HIV screening HIV Screening [facility] Start: 08-31-2007 Vaccination for [place] papillomavirus HPV Vaccines (1 - 2-dose series) [facility] Start: 08-31-1999 History and physical examination, annual for health maintenance Wellness Visit [facility] Start: 1996 Screening for Chlamy tristan trachomatis Chlamydia Screening [facility] Start: 1996 Screening for malign ant neoplasm of cervix Pap Smear [facility] Start: 1996 Tetanus vaccination Tetanus: Every 1 0yrs [facility] Bacteria identified in Urine by Culture Urine culture Microbiology Routine Missed menses Ordered: 07/19/[address] [facility] Comment on above: Ordered: 07/19/2023 CBC W Auto Different ial panel - Blood CBC and differential Lab Routine Missed menses Ordered: 07/19/[address] [facility] Comment on above: Ordered: 07/19/2023 Hemoglobin A1c measurement Hemoglobin A1c Lab Routine Missed menses Ordered: 07/19/[address] [facility] Comment on above: Ordered: 07/19/2023 Hepatitis B virus knight rface Ag [Presence] in Serum or Plasma by Immunoassay Hepatitis B surface antigen Lab Routine Missed menses Ordered: 07/19/[address] [facility] Comment on above: Ordered: 07/19/2023 Hepatitis C virus Ab [Presence] in Serum or Plasma by Immunoassay Hepatitis C antibody Lab Routine Missed menses Ordered: 07/19/[address] [facility] Comment on above: Ordered: 07/19/2023 HIV-1/HIV-2 antigen/antibody combination immunoassay HIV-1 and HIV-2 antibodies Lab Routine Missed menses Ordered: 07/19/[address] [facility] Comment on above: Ordered: 07/19/2023 Reagin Ab [Presence] in Serum by RPR RPR Lab Routine Missed menses Ordered: 07/19/[address] [facility] Comment on above: Ordered: 07/19/2023 Rubella antibody, IgG Rubella an tibody, IgG Lab Routine Missed menses Ordered: 07/19/[address] [facility] Comment on above: Ordered: 07/19/2023 Payers Date Payer Category Payer Self-pay 2022 Medicaid [employer] [place] [id number] 2022-Present [address] [place] [address] [id number] 1995 Unknown [id number] 2.16.840.1.675010.3.579.2.903 1995 Unknown [id number] 2.16.840.1.776086.3.579.2.593 1996 Unknown [id number] 2.16.840.1.059937.3.579.2.593 1996 Unknown [id number] 2.16.840.1.129433.3.579.2.593 1996 Unknown [id number] 2.16.840.1.589037.3.579.2.593 1996 Unknown [id number] 2.16.840.1.443275.3.579.2.593 1996 Unknown [id number] 2.16.840.1.862209.3.579.2.593 1996 Unknown [id number] 2.16.840.1.114276.3.579.2.593 1996 Unknown [id number] 2.16.840.1.396364.3.579.2.593 1996 Unknown [id number] 2.16.840.1.833356.3.579.2.593 1996 Unknown [id number] 2.16.840.1.884487.3.579.2.593 1996 Unknown [id number] 2.16.840.1.235222.3.579.2.593 1996 Unknown [id number] 2.16.840.1.217772.3.579.2.593 1996 Unknown [id number] 2.16.840.1.193570.3.579.2.593 1996 Unknown [id number] 2.16.840.1.297997.3.579.2.593 1996 Unknown [id number] 2.16.840.1.174439.3.579.2.593 1996 Unknown [id number] 2.16.840.1.446423.3.579.2.593 1996 Unknown [id number] 2.16.840.1.951290.3.579.2.593 1996 Unknown [id number] 2.16.840.1.415134.3.579.2.593 1996 Unknown [id number] 2.16.840.1.859492.3.579.2.593 1996 Unknown [id number] 2.16.840.1.629054.3.579.2.593 1996 Unknown [id number] 2.16.840.1.778084.3.579.2.593 1996 Unknown [id number] 2.16.840.1.688432.3.579.2.1286 1996 Unknown [id number] 2.16.840.1.586779.3.579.2.1286 1996 Unknown [id number] 2.16.840.1.048559.3.579.2.1259 1996 Unknown [id number] 2.16.840.1.912078.3.579.2.1259 1996 Unknown [id number] 2.16.840.1.268943.3.579.2.1259 1996 Unknown [id number] 2.16.840.1.851063.3.579.2.1259 1996 Unknown [id number] 2.16.840.1.678186.3.579.2.1259 1996 Unknown [id number] 2.16840.1.780231.3.579.2.9 1996 Unknown [id number] 2.16840.1.525438.3.579.2.1259 1996 Unknown [id number] 2.16840.1.345354.3.579.2.9 1996 Unknown [id number] 2.16840.1.955858.3.579.2.1259 1959 Unknown [id number] 1959 Unknown [id number] Unknown COMMERCIAL COMME RCIAL MISCELLANEOUS [id number] Effective for all dates [id number] 1.2.840.952406.1.13.385.2.7.3. 610534.315 Unknown [id number] Unknown [id number] 2..840.1.293373.3.579.2.531 Social History Date Type Detail Facility Tobacco smoking stat [facility] Unknown if ever smoked [facility] Sex Assigned At Not on file [facility] Start: 12-07-2022 Sex Assigned At Female [facility] Start: 12-07-2022 Tobacco smoking status SCIS Never smoked tobacco [facility] Start: 07-19-2023 Alcohol intake Current drinker of alcohol (finding) [facility] Start: 12-07-2022 History of Social function [facility] Start: 12-07-2022 Alcohol Comment 1-2 drinks less than monthly in the past year [facility] Start: 05-31-2023 [facility] Start: 1995 Sex Assigned At Female [facility] Start: 11-29-2022 Gender identity Identifies [...] Procedure Laterality Date DILATION AND CURETTAGE 2018 NE TONSILLECTOMY & ADENOIDECTOMY AGE 13/> 2015 WISDOM [...] sent for nausea to pharmacy. Pt desires [place] 22 and understands to have it done at 10 weeks along w/her labs. Follow Up: Patient is to have labs drawn at directed and return to office for initial OB appointment with provider. Patient may call office as needed with any concerns or questions. Nurse Visit Completed by: Cori Daniel MA documented in this encounter [facility] Clinical Note 01-16-2022 Note Date & Type [...] by: Cecelia FOOTE Date: 2022-01-16 21:33 [facility] Clinical Note 01-16-2022 Note Date & [...] by: Cecelia FOOTE Date: 2022-01-16 21:33 [facility] Clinical Note 01-15-2022 Note Date & [...] by: IGOR DIAZ Date: 2022-01-15 10:10 [facility] Evaluation + Plan note Note Date & Type Note Facility Evaluation + Plan note No data available for this section [facility] Evaluation note Note Date & Type Note Facility Evaluation note Diagnosis Missed menses Nausea Nausea alone documented in this encounter [facility] Discharge instructions Note Date & Type [...] FoundDocuments on File Type Date Recorded Patient Head Of History Expl anation Advance Directives and Livin g Will 03/05/2020 2:18 PM Assessments Diagnosis Chronic low back pain, unspecified back pain laterality, unspecified whether sciatica present Additional Source Comments INFORMATION SOURCE (unrecogn ized section and content) DATE CREATED AUTHOR 11/08/2018 [facility] DATE CREATED AUTHOR AUTHOR'S ORGANIZ ATION 03/21/2020 [facility] DATE CREATED AUTHOR AUTHOR'S ORGANIZ ATION 08/04/2022 [facility] DATE CREATED AUTHOR AUTHOR'S ORGANIZ ATION 09/06/2022 [facility] DATE CREATED AUTHOR AUTHOR'S ORGANIZ ATION 09/17/2023 [facility] DATE CREATED AUTHOR AUTHOR'S ORGANIZ ATION 11/09/2023 [facility] DATE CREATED AUTHOR AUTHOR'S ORGANIZ ATION 12/23/2023 [facility] EPIC Reason for Visit (unrecogniz ed [...] BE BASED ON THE PRIMARY CLINICAL RECORDS. [facility]. provides no warranty or guarantee of the accuracy or completeness of information in this document.
[2024-01-04 13:01] VITALS: BP 129/75; PULSE 97
[2024-01-04 13:24] LABS: Bilirubin Urine NEGATIVE (NEGATIVE); Blood Urine NEGATIVE (NEGATIVE); Clarity Urine CLEAR (CLEAR); Color Urine LT. YELLOW (YELLOW); Glucose Urine UA NEGATIVE (NEGATIVE); Ketones Urine NEGATIVE (NEGATIVE); Leukocyte Esterase Urine TRACE (NEGATIVE); Nitrite Urine NEGATIVE (NEGATIVE); Protein Urine NEGATIVE (NEG/TRACE); Urobilinogen Urine 0.2 EU/dL (0.2-1.0); pH Urine 7.5 (5.0-9.0)
[2024-01-04 13:25] LABS: Urine Microscopic Indicated YES
[2024-01-04 13:35] LABS: Bacteria Urine SMALL #/HPF (NONE SEEN); Cast Seen? NONE SEEN #/LPF (NONE SEEN); Crystals Seen? None Seen #/HPF (None Seen); Mucus Urine NONE SEEN (NONE SEEN); RBC Urine 0-2 #/HPF (0-2); Squamous Epithelial Cell Urine FEW #/LPF (NONE/RARE); Urine Culture Indicated YES; WBC Urine 0-2 #/HPF (NONE SEEN)
== END 2024-01-04 14:26 | disposition home or self-care (01) ==
LOC: FBCO 12:38 → FBC 12:39
PROVIDERS: PCP Nurse Practitioner Family; Visit Provider Obstetrics & Gynecology
DX: O60.03 Preterm labor without delivery, third trimester (principal); M54.50 Low back pain, unspecified; Z3A.33 33 weeks gestation of pregnancy
CPT/HCPCS: 59025; 81001; 87086

== ENCOUNTER 2024-01-06 07:45 | Outpatient (OUT) | payer OTHER, SELFPAY ==
--- OUTSIDE RECORDS SUMMARY | 2024-01-06 07:52 | XMS_ITS | CCD ---
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; 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: [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] Onset: 02-05-2022 Episodic Other [...] WITH AUTO DIFFon BASOPHILS ABSOLUTE AUTO 0.1 [facility] Basophils/100 WBC (Bld) 0.7 % 0.2 - 2.0 % [facility] Eosinophils/100 WBC (Bld) 2.6 % 0.9 - 7.0 % [facility] Erythrocyte distribution width (RBC) [Ratio] 13.4 % 11.0 - 15.0 % [facility] Hematocrit (Bld) [Volume fraction] 39.0 % 36.0 - 48.0 % [facility] Hemoglobin (Bld) [Mass/Vol] 12.8 g/dL 12.0 - 16.0 g/dL [facility] IMMATURE GRANULOCYTES ABS AUTO 0.01 [facility] Immature granulocytes/100 WBC (Bld) 0.1 % 0.0 - 0.5 % [facility] LYMPHOCYTES ABSOLUTE AUTO 2.2 [facility] Lymphocytes/100 WBC (Bld) 26.1 % 20.5 - 60.0 % [facility] MCH (RBC) [Entitic mass] 28.6 pg 26.7 - 34.0 pg [facility] MCHC (RBC) [Mass/Vol] 32.8 g/dL 29.9 - 35.2 g/dL [facility] MCV (RBC) [Entitic vol] 87.2 fL 81.0 - 99.0 fL [facility] MONOCYTES ABSOLUTE AUTO 0.5 [facility] Monocytes/100 WBC (Bld) 5.7 % 1.7 - 12.0 % [facility] NEUTROPHILS ABSOLUTE AUTO 5.5 [facility] Neutrophils/100 WBC (Bld) 64.8 % 43.0 - 75.0 % [facility] Platelet mean volume (Bld) [Entitic vol] 10.1 fL 9.5 - 13.5 fL [facility]H EO # 0.2 [facility] PLT 340 [facility] RBC 4.47 [facility] WBC 8.4 [facility] HCG ( test) Ql (U)o n 07-19-2023 Interpretation and review of laboratory results Abnormal [facility] Preg Test, Ur Positive [facility] Urinalysis macro (dipstick) panel (U)on 07-19-2023 Bilirubin, UA Negative Negative - 4(70) +++ mg/dL [facility] Blood, UA Positive Negative - 50 Anselmo/mcL [facility] Comment on above: moderate Clarity, UA Clear [facility] Color, UA [place] [facility] Glucose, UA Negative Negative - 1999(110) ++++ mg/dL [facility] Interpretation and review of laboratory results Abnormal [facility] Ketones, UA Positive Negative - 160(16) ++++ mg/dL [facility] Comment on above: trace Leukocytes, UA Positive Negative - 500+++ Monik/mcL [facility] Comment on above: small Nitrite, UA Negative Negative - Positive [facility] pH, UA 6.0 5 - 9 [facility] Protein, UA Positive Negative - 1999(20) ++++ mg/dL [facility] Comment on above: 30 Spec Grav, UA 1.030 1 - 1.03 [facility] Urobilinogen, UA 1.0 0.2 - 12 mg/dL [facility] In office Testingon 03-23-20 23 In office Testing [id number]# 1.00CD:127 Normal [facility] CBC AUTO DIFFon 07-30-2022 BASO # 0.1 103/ul Normal 0.0-0.1 [facility] Comment on above: Performed By: #### U RCX #### [facility] [address] [place] [address] Dr. Caitlin Martinez Basophils/100 WBC (Bld) 1.1 % Normal 0.2-2.0 [facility] Comment on above: Performed By: #### U RCX #### [facility] [address] [place] [address] Dr. Caitlin Martinez EO # 0.3 103/ul Normal 0.0-0.7 [facility] Comment on above: Performed By: #### U RCX #### [facility] [address] [place] [address] Dr. Caitlin Martinez Eosinophils/100 WBC (Bld) 4.7 % Normal 0.9-7.0 [facility] Comment on above: Performed By: #### U RCX #### [facility] [address] [place] [address] Dr. Caitlin Martinez Erythrocyte distribution width (RBC) [Ratio] 14.7 % Normal 11.0-15.0 [facility] Comment on above: Performed By: #### U RCX #### [facility] [address] [place] [address] Dr. Caitlin Martinez Hematocrit (Bld) [Volume fraction] 39.3 % Normal 36.0-48.0 [facility] Comment on above: Performed By: #### U RCX #### [facility] [address] [place] [address] Dr. Caitlin Martinez Hemoglobin (Bld) [Mass/Vol] 12.7 g/dL Normal 12.0-16.0 [facility] Comment on above: Performed By: #### U RCX #### [facility] [address] [place] [address] Dr. Caitlin Martinez IG # 0.02 10e3/ul Normal 0.00-0.03 [facility] Comment on above: Performed By: #### U RCX #### [facility] [address] [place] [address] Dr. Caitlin Martinze IG % 0.3 % Normal 0.0-0.5 [facility] Comment on above: Performed By: #### U RCX #### [facility] [address] [place] [address] Dr. Caitlin Martinez LYMPH # 2.5 103/ul Normal 1.2-3.8 [facility] Comment on above: Performed By: #### U RCX #### [facility] [address] [place] [address] Dr. Caitlin Martinez Lymphocytes/100 WBC (Bld) 34.5 % Normal 20.5-60.0 [facility] Comment on above: Performed By: #### U RCX #### [facility] [address] [place] [address] Dr. Caitlin Martinez MANUAL DIFF REQ NO Normal [facility] Comment on above: Performed By: #### U RCX #### [facility] [address] [place] [address] Dr. Caitlin Martinez MCH (RBC) [Entitic mass] 27.3 pg Normal 26.7-34.0 [facility] Comment on above: Performed By: #### U RCX #### [facility] [address] [place] [address] Dr. Caitlin Martinez MCHC (RBC) [Mass/Vol] 32.3 g/dL Normal 29.9-35.2 [facility] Comment on above: Performed By: #### U RCX #### [facility] [address] [place] [address] Dr. Caitlin Martinez MCV (RBC) [Entitic vol] 84.5 fL Normal 81.0-99.0 [facility] Comment on above: Performed By: #### U RCX #### [facility] [address] [place] [address] Dr. Caitlin Martinez MONO # 0.5 103/ul Normal 0.3-0.8 [facility] Comment on above: Performed By: #### U RCX #### [facility] [address] [place] [address] Dr. Caitlin Martinez Monocytes/100 WBC (Bld) 7.3 % Normal 1.7-12.0 [facility] Comment on above: Performed By: #### U RCX #### [facility] [address] [place] [address] Dr. Caitlin Martinez NEUT # 3.8 103/ul Normal 1.4-6.5 [facility] Comment on above: Performed By: #### U RCX #### [facility] [address] [place] [address] Dr. Caitlin Martinez Neutrophils/100 WBC (Bld) 52.1 % Normal 43.0-75.0 [facility] Comment on above: Performed By: #### U RCX #### [facility] [address] [place] [address] Dr. Caitlin Martinez Platelet mean volume (Bld) [Entitic vol] 9.0 fL Critically low 9.5-13.5 [facility] Comment on above: Performed By: #### U RCX #### [facility] [address] [place] [address] Dr. Caitlin Martinez PLT 368 103/ul Normal 150-450 [facility] Comment on above: Performed By: #### U RCX #### [facility] [address] [place] [address] Dr. Caitlin Martinez RBC 4.65 106/ul Normal 4.20-5.40 [facility] Comment on above: Performed By: #### U RCX #### [facility] [address] [place] [address] Dr. Caitlin Martinez WBC 7.2 103/ul Normal 4.0-11.0 [facility] Comment on above: Performed By: #### U RCX #### [facility] [address] [place] [address] Dr. Caitlin Martinez IRONon 07-30-2022 Iron [Mass/Vol] 43.0 ug/dL Critically low 50.0-170.0 [facility] Comment on above: Performed By: #### U RCX #### [facility] [address] [place] [address] Dr. Caitlin Martinez PAP ACOG PANEL 2: 21 to 30on 07-30-2022 . . Normal [facility] Comment on above: Performed By: #### U RCX #### [facility] [address] [place] [address] Dr. Caitlin Martinez Age Gdln ACOG Testing - [facility] Comment on above: Performed By: #### U RCX #### [facility] [address] [address] [address] Caitlin Martinez DIAGNOSIS: Comment [facility] Comment on above: Result Comment: NEGA TIVE FOR INTRAEPITHELIAL LESION OR MALIGNANCY. Performed By: #### U RCX #### [facility] [address] [place] [address] Dr. Caitlin Martinez Methodology: Comment [facility] Comment on above: Result Comment: This liquid based ThinPrep(R) pap test was screened with the use of an image guided system. Performed By: #### U RCX #### [facility] [address] [place] [address] Dr. Caitlin Martinez Note: Comment [facility] Comment on above: Result Comment: The Pap smear is a screening test designed to aid in the detection of premalignant and malignant conditions of the uterine cervix. It is not a diagnostic procedure and should not be used as the sole means of detecting cervical cancer. Both false-positive and false-negative reports do occur. . Performed By: #### U RCX #### [facility] [address] [place] [address] Dr. Caitlin Martinez Performed by: Comment Normal [facility] Comment on above: Result Comment: Bhavna Cormier, Designer Architect (ASCP) Performed By: #### U RCX #### [facility] [address] [place] [address] Dr. Caitlin Martinez Reflex Criteria: Comment Normal [facility] Comment on above: Result Comment: The HPV DNA reflex criteria were not met with this specimen result therefore, no HPV testing was performed. . Performed By: #### U RCX #### [facility] [address] [place] [address] Dr. Caitlin Martinez Specimen adequacy: Comment Normal [facility] Comment on above: Result Comment: Sati sfactory for evaluation. Endocervical and/or squamous metaplastic cells (endocervical component) are present. Performed By: #### U RCX #### [facility] [address] [place] [address] Dr. Caitlin Martinez INSULINon 04-19-2022 Insulin 9.1 uIU/mL Normal 2.6-24.9 [facility] Comment on above: Performed By: #### I HORACIO #### [facility] [address] [place] [address] Dr. Caitlin Martinez CBC AUTO DIFFon 04-18-2022 BASO # 0.1 103/ul Normal 0.0-0.1 [facility] Comment on above: Performed By: #### U RCX #### [facility] [address] [place] [address] Dr. Caitlin Martinez Basophils/100 WBC (Bld) 1.0 % Normal 0.2-2.0 [facility] Comment on above: Performed By: #### U RCX #### [facility] [address] [place] [address] Dr. Caitlin Martinez EO # 0.3 103/ul Normal 0.0-0.7 [facility] Comment on above: Performed By: #### U RCX #### [facility] [address] [place] [address] Dr. Caitlin Martinez Eosinophils/100 WBC (Bld) 4.1 % Normal 0.9-7.0 [facility] Comment on above: Performed By: #### U RCX #### [facility] [address] [place] [address] Dr. Caitlin Martinez Erythrocyte distribution width (RBC) [Ratio] 16.0 % Critically high 11.0-15.0 [facility] Comment on above: Performed By: #### U RCX #### [facility] [address] [place] [address] Dr. Caitlin Martinez Hematocrit (Bld) [Volume fraction] 35.7 % Critically low 36.0-48.0 [facility] Comment on above: Performed By: #### U RCX #### [facility] [address] [place] [address] Dr. Caitlin Martinez Hemoglobin (Bld) [Mass/Vol] 10.9 g/dL Critically low 12.0-16.0 [facility] Comment on above: Performed By: #### U RCX #### [facility] [address] [place] [address] Dr. Caitlin Martinez IG # 0.07 10e3/ul Critically high 0.00-0.03 [facility] Comment on above: Performed By: #### U RCX #### [facility] [address] [place] [address] Dr. Caitlin Martinez IG % 1.0 % Critically high 0.0-0.5 [facility] Comment on above: Performed By: #### U RCX #### [facility] [address] [place] [address] Dr. Caitlin Martinez LYMPH # 2.3 103/ul Normal 1.2-3.8 [facility] Comment on above: Performed By: #### U RCX #### [facility] [address] [place] [address] Dr. Caitlin Martinez Lymphocytes/100 WBC (Bld) 31.4 % Normal 20.5-60.0 [facility] Comment on above: Performed By: #### U RCX #### [facility] [address] [place] [address] Dr. Caitlin Martinez MANUAL DIFF REQ NO Normal [facility] Comment on above: Performed By: #### U RCX #### [facility] [address] [place] [address] Dr. Caitlin Martinez MCH (RBC) [Entitic mass] 24.8 pg Critically low 26.7-34.0 [facility] Comment on above: Performed By: #### U RCX #### [facility] [address] [address] [address] Caitlin Martinez MCHC (RBC) [Mass/Vol] 30.5 g/dL Normal 29.9-35.2 [facility] Comment on above: Performed By: #### U RCX #### [facility] [address] [address] [address] Caitlin Martinez MCV (RBC) [Entitic vol] 81.1 fL Normal 81.0-99.0 [facility] Comment on above: Performed By: #### U RCX #### [facility] [address] [address] [address] Caitlin Martinez MONO # 0.5 103/ul Normal 0.3-0.8 [facility] Comment on above: Performed By: #### U RCX #### [facility] [address] [place] [address] Dr. Caitlin Martinez Monocytes/100 WBC (Bld) 6.6 % Normal 1.7-12.0 [facility] Comment on above: Performed By: #### U RCX #### [facility] [address] [place] [address] Dr. Caitlin Martinez NEUT # 4.1 103/ul Normal 1.4-6.5 [facility] Comment on above: Performed By: #### U RCX #### [facility] [address] [place] [address] Dr. Caitlin Martinez Neutrophils/100 WBC (Bld) 55.9 % Normal 43.0-75.0 [facility] Comment on above: Performed By: #### U RCX #### [facility] [address] [place] [address] Dr. Caitlin Martinez Platelet mean volume (Bld) [Entitic vol] 9.4 fL Critically low 9.5-13.5 [facility] Comment on above: Performed By: #### U RCX #### [facility] [address] [place] [address] Dr. Caitlin Martinez PLT 369 103/ul Normal 150-450 [facility] Comment on above: Performed By: #### U RCX #### [facility] [address] [address] [address] Caitlin Martinez RBC 4.40 106/ul Normal 4.20-5.40 [facility] Comment on above: Performed By: #### U RCX #### [facility] [address] [address] [address] Caitlin Martinez WBC 7.3 103/ul Normal 4.0-11.0 [facility] Comment on above: Performed By: #### U RCX #### [facility] [address] [address] [address] Caitlin Martinez FREE THYROXINE INDEX T7on FTI 2.20 Normal 1.30-4.50 [facility] Comment on above: Performed By: #### I HORACIO #### [facility] [address] [address] [address] Caitlin Martinez T3U 29.0 % Critically low 30.0-39.0 [facility] Comment on above: Performed By: #### I HORACIO #### [facility] [address] [address] [address] Caitlin Martinez T4 [Mass/Vol] 7.60 ug/dL Normal 4.80-13.90 [facility] Comment on above: Performed By: #### I HORACIO #### [facility] [address] [address] [address] Caitlin Martinez GLYCOHEMOGLOBIN A1Con 2021 ADA RECOMMENDATION SEE BELOW Normal [facility] Comment on above: Result Comment: ADA RECOMMENDED LIMIT 4.0 - 6.0 ADA THERAPEUTIC TARGET < 7.0 ACTION SUGGESTED > 7.0 Performed By: #### U RCX #### [facility] [address] [address] [address] Caitlin Martinez Glucose [Mass/Vol] 97 mg/dL Normal [facility] Comment on above: Performed By: #### U RCX #### [facility] [address] [address] [address] Caitlin Martinez HbA1c (Bld) [Mass fraction] 5.0 % Normal 4.5-6.2 [facility] Comment on above: Performed By: #### U RCX #### [facility] [address] [address] [address] Caitlin Martinez IRONon 04-18-2022 Iron [Mass/Vol] 35.0 ug/dL Critically low 50.0-170.0 [facility] Comment on above: Performed By: #### I HORACIO #### [facility] [address] [address] [address] Caitlin Martinez LIPID PROFILEon 04-18-2022 CHOL-HDL RATIO NORM SEE BELOW Normal [facility] Comment on above: Result Comment: 3.3 - 4.4 LOW RISK 4.4 - 7.1 AVERAGE RISK 7.1 - 11.0 MODERATE RISK >11.0 HIGH RISK Performed By: #### I HORACIO #### [facility] [address] [place] [address] Dr. Caitlin Martinez Cholesterol [Mass/Vol] 221 mg/dL Critically high <=200 [facility] Comment on above: Performed By: #### I HORACIO #### [facility] [address] [address] [address] Caitlin Martinez Cholesterol in HDL [Mass/Vol] 67 mg/dL Critically high 40-60 [facility] Comment on above: Performed By: #### I HORACIO #### [facility] [address] [place] [address] Dr. Caitlin Martinez Cholesterol in LDL [Mass/Vol] 142.4 mg/dL Normal [facility] Comment on above: Performed By: #### I HORACIO #### [facility] [address] [address] [address] Caitlin Martinez Cholesterol.total/Cho lesterol in HDL [Mass ratio] 3.3 {ratio} Normal [facility] Comment on above: Performed By: #### I HORACIO #### [facility] [address] [place] [address] Dr. Caitlin Martinez HDL NORMAL > or = 60 mg/dl - LO W CARDIOVASCULAR RISK <40 mg/dl - HIGH CARDIOVASCULAR RISK Normal [facility] Comment on above: Performed By: #### I HORACIO #### [facility] [address] [address] [address] Caitlin Martinez LDL CALC NORMAL SEE BELOW Normal [facility] Comment on above: Result Comment: <100 mg/dl OPTIMAL 100 - 129 mg/dl NEAR OR ABOVE OPTIMAL 130 - 159 mg/dl BORDERLINE HIGH 160 - 189 mg/dl HIGH >190 mg/dl VERY HIGH Performed By: #### I HORACIO #### [facility] [address] [address] [address] Caitlin Martinez Triglyceride [Mass/Vol] 58 mg/dL Normal <=150 [facility] Comment on above: Performed By: #### I HORACIO #### [facility] [address] [address] [address] Caitlin Martinez VLDL CALC 11.6 mg/dL Normal [facility] Comment on above: Performed By: #### I HORACIO #### [facility] [address] [place] [address] Dr. Caitlin Martinez PROF 14(COMP METB)on 022 Albumin [Mass/Vol] 3.8 g/dL Normal 3.4-5.0 [facility] Comment on above: Performed By: #### I HORACIO #### [facility] [address] [place] [address] Dr. Caitlin Martinez Albumin/Globulin [Mass ratio] 1.1 {ratio} Normal [facility] Comment on above: Performed By: #### I HORACIO #### [facility] [address] [address] [address] Caitlin Martinez ALP [Catalytic activity/Vol] 132 U/L Critically high 46-116 [facility] Comment on above: Performed By: #### I HORACIO #### [facility] [address] [address] [address] Caitlin Martinez ALT [Catalytic activity/Vol] 55 U/L Normal 14-59 [facility] Comment on above: Performed By: #### I HORACIO #### [facility] [address] [place] [address] Dr. Caitlin Martinez Anion gap [Moles/Vol] 12.6 mmol/L Normal [facility] Comment on above: Performed By: #### I HORACIO #### [facility] [address] [address] [address] Caitlin Martinez AST [Catalytic activity/Vol] 27 U/L Normal 15-37 [facility] Comment on above: Performed By: #### I HORACIO #### [facility] [address] [address] [address] Caitlin Martinez Bilirubin [Mass/Vol] 0.6 mg/dL Normal 0.2-1.0 [facility] Comment on above: Performed By: #### I HORACIO #### [facility] [address] [address] [address] Caitlin Martinez Calcium [Mass/Vol] 9.1 mg/dL Normal 8.5-10.1 [facility] Comment on above: Performed By: #### I HORACIO #### [facility] [address] [address] [address] Caitlin Martinez Chloride [Moles/Vol] 106 mmol/L Normal 98-107 [facility] Comment on above: Performed By: #### I HORACIO #### [facility] [address] [address] [address] Caitlin Martinez CO2 [Moles/Vol] 26.5 mmol/L Normal 21.0-32.0 [facility] Comment on above: Performed By: #### I HORACIO #### [facility] [address] [address] [address] Caitlin Martinez Creatinine [Mass/Vol] 0.63 mg/dL Normal 0.55-1.02 [facility] Comment on above: Performed By: #### I HORACIO #### [facility] [address] [address] [address] Caitlin Martinez EGFR-AF ANDORRAN >60 Normal >=60 [facility] Comment on above: Performed By: #### I HORACIO #### [facility] [address] [address] [address] Caitlin Martinez EGFR-NON AF ANDORRAN >60 Normal >=60 [facility] Comment on above: Performed By: #### I HORACIO #### [facility] [address] [address] [address] Caitlin Martinez Globulin (S) [Mass/Vol] 3.6 g/dL Normal [facility] Comment on above: Performed By: #### I HORACIO #### [facility] [address] [address] [address] Caitlin Martinez Glucose [Mass/Vol] 98 mg/dL Normal 74-106 [facility] Comment on above: Performed By: #### I HORACIO #### [facility] [address] [place] [address] Dr. Caitlin Martinez Potassium [Moles/Vol] 4.1 mmol/L Normal 3.5-5.1 [facility] Comment on above: Performed By: #### I HORACIO #### [facility] [address] [place] [address] Dr. Caitlin Martinez Protein [Mass/Vol] 7.4 g/dL Normal 6.4-8.2 [facility] Comment on above: Performed By: #### I HORACIO #### [facility] [address] [place] [address] Dr. Caitlin Martinez Sodium [Moles/Vol] 141 mmol/L Normal 136-145 [facility] Comment on above: Performed By: #### I HORACIO #### [facility] [address] [place] [address] Dr. Caitlin Martinez Urea nitrogen [Mass/Vol] 9.0 mg/dL Normal 7.0-18.0 [facility] Comment on above: Performed By: #### I HORACIO #### [facility] [address] [place] [address] Dr. Caitlin Martinez Urea nitrogen/Creatinine [Mass ratio] 14.3 mg/mg Normal [facility] Comment on above: Performed By: #### I HORACIO #### [facility] [address] [place] [address] Dr. Caitlin Martinez TSHon 04-18-2022 TSH 1.349 uIU/mL Normal 0.358-3.740 [facility] Comment on above: Performed By: #### I HORACIO #### [facility] [address] [place] [address] Dr. Caitlin Martinez ANTIBODY ID PANELon 02-15-20 22 ANTIBODY ID PANEL Antibody ID Anti-D Blood Bank Notes most likely due to Rhogam given on 12/01/21 Normal [facility] Comment on above: Performed By: #### D IRCMB, ABINadine #### [facility] [address] [place] [id number] Caitlin Martinez CTA CHEST WO W [...] GAGANDEEP WHEELER Date: 2022-02-10 22:55 Normal [facility] CBC AUTO DIFFon 02-10-2022 BASO # 0.1 103/ul Normal 0.0-0.1 [facility] Comment on above: Performed By: #### C BC #### [facility] [address] [place] [address] Dr. Caitlin Martinez Basophils/100 WBC (Bld) 0.4 % Normal 0.2-2.0 [facility] Comment on above: Performed By: #### C BC #### [facility] [address] [place] [address] Dr. Caitlin Martinez EO # 0.5 103/ul Normal 0.0-0.7 [facility] Comment on above: Performed By: #### C BC #### [facility] [address] [place] [address] Dr. Caitlin Martinez Eosinophils/100 WBC (Bld) 4.2 % Normal 0.9-7.0 [facility] Comment on above: Performed By: #### C BC #### [facility] [address] [place] [address] Dr. Caitlin Martinez Erythrocyte distribution width (RBC) [Ratio] 14.7 % Normal 11.0-15.0 [facility] Comment on above: Performed By: #### C BC #### [facility] [address] [place] [address] Dr. Caitlin Martinez Hematocrit (Bld) [Volume fraction] 31.1 % Critically low 36.0-48.0 [facility] Comment on above: Performed By: #### C BC #### [facility] [address] [place] [address] Dr. Caitlin Martinez Hemoglobin (Bld) [Mass/Vol] 9.6 g/dL Critically low 12.0-16.0 [facility] Comment on above: Performed By: #### C BC #### [facility] [address] [place] [address] Dr. Caitlin Martinez IG # 0.28 10e3/ul Critically high 0.00-0.03 [facility] Comment on above: Performed By: #### C BC #### [facility] [address] [place] [address] Dr. Caitlin Martinez IG % 2.3 % Critically high 0.0-0.5 [facility] Comment on above: Performed By: #### C BC #### [facility] [address] [place] [address] Dr. Caitlin Martinez LYMPH # 3.3 103/ul Normal 1.2-3.8 [facility] Comment on above: Performed By: #### C BC #### [facility] [address] [place] [address] Dr. Caitlin Martinez Lymphocytes/100 WBC (Bld) 26.9 % Normal 20.5-60.0 [facility] Comment on above: Performed By: #### C BC #### [facility] [address] [place] [address] Dr. Caitlin Martinez MANUAL DIFF REQ NO Normal [facility] Comment on above: Performed By: #### C BC #### [facility] [address] [place] [address] Dr. Caitlin Martinez MCH (RBC) [Entitic mass] 26.2 pg Critically low 26.7-34.0 [facility] Comment on above: Performed By: #### C BC #### [facility] [address] [place] [address] Dr. Caitlin Martinez MCHC (RBC) [Mass/Vol] 30.9 g/dL Normal 29.9-35.2 [facility] Comment on above: Performed By: #### C BC #### [facility] [address] [place] [address] Dr. Caitlin Martinez MCV (RBC) [Entitic vol] 84.7 fL Normal 81.0-99.0 [facility] Comment on above: Performed By: #### C BC #### [facility] [address] [place] [address] Dr. Caitlin Martinez MONO # 1.1 103/ul Critically high 0.3-0.8 [facility] Comment on above: Performed By: #### C BC #### [facility] [address] [place] [address] Dr. Caitlin Martinez Monocytes/100 WBC (Bld) 8.7 % Normal 1.7-12.0 [facility] Comment on above: Performed By: #### C BC #### [facility] [address] [place] [address] Dr. Caitlin Martinez NEUT # 7.0 103/ul Critically high 1.4-6.5 [facility] Comment on above: Performed By: #### C BC #### [facility] [address] [place] [address] Dr. Caitlin Martinez Neutrophils/100 WBC (Bld) 57.5 % Normal 43.0-75.0 [facility] Comment on above: Performed By: #### C BC #### [facility] [address] [place] [address] Dr. Caitlin Martinez Platelet mean volume (Bld) [Entitic vol] 9.1 fL Critically low 9.5-13.5 [facility] Comment on above: Performed By: #### C BC #### [facility] [address] [address] [address] Caitlin Martinez PLT 437 103/ul Normal 150-450 [facility] Comment on above: Performed By: #### C BC #### [facility] [address] [address] [address] Caitlin Martinez RBC 3.67 106/ul Critically low 4.20-5.40 [facility] Comment on above: Performed By: #### C BC #### [facility] [address] [address] [address] Caitlin Martinez WBC 12.3 103/ul Critically high 4.0-11.0 [facility] Comment on above: Performed By: #### C BC #### [facility] [address] [place] [address] Dr. Caitlin Martinez Covid-19 PCR (CVDTB)on 01-16 SARS-CoV-2 (COVID-19) RNA JONATAN+probe Ql (Unsp spec) Not detected Normal NOT DETECTED [facility] Comment on above: Result Comment: When [...] for this test is supported by the [place] of [employer] and Human [employer]'s declaration that [...] used). Performed By: #### C VDTBH #### [facility] [address] [address] [address] Caitlin Martinez PROF 14(COMP METB)on 022 Albumin [Mass/Vol] 2.1 g/dL Critically low 3.4-5.0 [facility] Comment on above: Performed By: #### U RCX #### [facility] [address] [place] [address] Dr. Caitlin Martinez Albumin/Globulin [Mass ratio] 0.5 {ratio} Normal [facility] Comment on above: Performed By: #### U RCX #### [facility] [address] [place] [address] Dr. Caitlin Martinez ALP [Catalytic activity/Vol] 202 U/L Critically high 46-116 [facility] Comment on above: Performed By: #### U RCX #### [facility] [address] [place] [address] Dr. Caitlin Martinez ALT [Catalytic activity/Vol] 20 U/L Normal 14-59 [facility] Comment on above: Performed By: #### U RCX #### [facility] [address] [place] [address] Dr. Caitlin Martinez Anion gap [Moles/Vol] 11.6 mmol/L Normal [facility] Comment on above: Performed By: #### U RCX #### [facility] [address] [place] [address] Dr. Caitlin Martinez AST [Catalytic activity/Vol] 17 U/L Normal 15-37 [facility] Comment on above: Performed By: #### U RCX #### [facility] [address] [place] [address] Dr. Caitlin Martinez Bilirubin [Mass/Vol] 0.3 mg/dL Normal 0.2-1.0 [facility] Comment on above: Performed By: #### U RCX #### [facility] [address] [place] [address] Dr. Caitlin Martinez Calcium [Mass/Vol] 9.2 mg/dL Normal 8.5-10.1 [facility] Comment on above: Performed By: #### U RCX #### [facility] [address] [address] [address] Caitlin Martinez Chloride [Moles/Vol] 104 mmol/L Normal 98-107 [facility] Comment on above: Performed By: #### U RCX #### [facility] [address] [place] [address] Dr. Caitlin Martinez CO2 [Moles/Vol] 26.9 mmol/L Normal 21.0-32.0 [facility] Comment on above: Performed By: #### U RCX #### [facility] [address] [address] [address] Caitlin Martinez Creatinine [Mass/Vol] 0.56 mg/dL Normal 0.55-1.02 [facility] Comment on above: Performed By: #### U RCX #### [facility] [address] [place] [address] Dr. Caitlin Martinez EGFR-AF ANDORRAN >60 Normal >=60 [facility] Comment on above: Performed By: #### U RCX #### [facility] [address] [place] [address] Dr. Caitlin Martinez EGFR-NON AF ANDORRAN >60 Normal >=60 [facility] Comment on above: Performed By: #### U RCX #### [facility] [address] [address] [address] Caitlin Martinez Globulin (S) [Mass/Vol] 4.4 g/dL Normal [facility] Comment on above: Performed By: #### U RCX #### [facility] [address] [address] [address] Caitlin Martinez Glucose [Mass/Vol] 108 mg/dL Critically high 74-106 [facility] Comment on above: Performed By: #### U RCX #### [facility] [address] [place] [address] Dr. Caitlin Martinez Potassium [Moles/Vol] 3.5 mmol/L Normal 3.5-5.1 [facility] Comment on above: Performed By: #### U RCX #### [facility] [address] [place] [address] Dr. Caitlin Martinez Protein [Mass/Vol] 6.5 g/dL Normal 6.4-8.2 [facility] Comment on above: Performed By: #### U RCX #### [facility] [address] [place] [address] Dr. Caitlin Martinez Sodium [Moles/Vol] 139 mmol/L Normal 136-145 [facility] Comment on above: Performed By: #### U RCX #### [facility] [address] [address] [address] Caitlin Martinez Urea nitrogen [Mass/Vol] 7.0 mg/dL Normal 7.0-18.0 [facility] Comment on above: Performed By: #### U RCX #### [facility] [address] [place] [address] Dr. Caitlin Martinez Urea nitrogen/Creatinine [Mass ratio] 12.5 mg/mg Normal [facility] Comment on above: Performed By: #### U RCX #### [facility] [address] [place] [address] Dr. Caitlin Martinez TROPONIN, HIGH SENSITIVITYon 02-10-2022 HSTROP <4.0 Normal 4.0-51.3 [facility] Comment on above: Result Comment: CUT- OFF POINTS HAVE BEEN ESTABLISHED BASED ON THE FOURTH UNIVERSAL DEFINITIONS OF MYOCARDIAL INFARCTION. THE UPPER REFERENCE LIMIT (URL) OF TROPONIN, DEFINED THE 99TH PERCENTILE OF cTnI DISTRIBUTION IN A REFERENCE POPULATION, HAS BEEN CONFIRMED THE DECISION THRESHOLD FOR UT DIAGNOSIS. Performed By: #### U RCX #### [facility] [address] [place] [address] Dr. Caitlin Martinez CBC AUTO DIFFon 02-09-2022 BASO # 0.1 103/ul Normal 0.0-0.1 [facility] Comment on above: Performed By: #### U RCX #### [facility] [address] [place] [address] Dr. Caitlin Martinez Basophils/100 WBC (Bld) 0.6 % Normal 0.2-2.0 [facility] Comment on above: Performed By: #### U RCX #### [facility] [address] [place] [address] Dr. Caitlin Martinez EO # 0.3 103/ul Normal 0.0-0.7 [facility] Comment on above: Performed By: #### U RCX #### [facility] [address] [address] [address] Caitlin Martinez Eosinophils/100 WBC (Bld) 2.3 % Normal 0.9-7.0 [facility] Comment on above: Performed By: #### U RCX #### [facility] [address] [address] [address] Caitlin Martinez Erythrocyte distribution width (RBC) [Ratio] 14.6 % Normal 11.0-15.0 [facility] Comment on above: Performed By: #### U RCX #### [facility] [address] [place] [address] Dr. Caitlin Martinez Hematocrit (Bld) [Volume fraction] 28.8 % Critically low 36.0-48.0 [facility] Comment on above: Performed By: #### U RCX #### [facility] [address] [place] [address] Dr. Caitlin Martinez Hemoglobin (Bld) [Mass/Vol] 9.0 g/dL Critically low 12.0-16.0 [facility] Comment on above: Performed By: #### U RCX #### [facility] [address] [place] [address] Dr. Caitlin Martinez IG # 0.20 10e3/ul Critically high 0.00-0.03 [facility] Comment on above: Performed By: #### U RCX #### [facility] [address] [place] [address] Dr. Caitlin Martinez IG % 1.5 % Critically high 0.0-0.5 [facility] Comment on above: Performed By: #### U RCX #### [facility] [address] [place] [address] Dr. Caitlin Martinez LYMPH # 3.0 103/ul Normal 1.2-3.8 [facility] Comment on above: Performed By: #### U RCX #### [facility] [address] [place] [address] Dr. Caitlin Martinez Lymphocytes/100 WBC (Bld) 22.2 % Normal 20.5-60.0 [facility] Comment on above: Performed By: #### U RCX #### [facility] [address] [place] [address] Dr. Caitlin Martinez MANUAL DIFF REQ NO Normal [facility] Comment on above: Performed By: #### U RCX #### [facility] [address] [place] [address] Dr. Caitlin Martinez MCH (RBC) [Entitic mass] 26.2 pg Critically low 26.7-34.0 [facility] Comment on above: Performed By: #### U RCX #### [facility] [address] [place] [address] Dr. Caitlin Martinez MCHC (RBC) [Mass/Vol] 31.3 g/dL Normal 29.9-35.2 [facility] Comment on above: Performed By: #### U RCX #### [facility] [address] [place] [address] Dr. Caitlin Martinez MCV (RBC) [Entitic vol] 83.7 fL Normal 81.0-99.0 [facility] Comment on above: Performed By: #### U RCX #### [facility] [address] [place] [address] Dr. Caitlin Martinez MONO # 1.3 103/ul Critically high 0.3-0.8 [facility] Comment on above: Performed By: #### U RCX #### [facility] [address] [place] [address] Dr. Caitlin Martinez Monocytes/100 WBC (Bld) 9.8 % Normal 1.7-12.0 [facility] Comment on above: Performed By: #### U RCX #### [facility] [address] [place] [address] Dr. Caitlin Martinez NEUT # 8.5 103/ul Critically high 1.4-6.5 [facility] Comment on above: Performed By: #### U RCX #### [facility] [address] [address] [address] Caitlin Martinez Neutrophils/100 WBC (Bld) 63.6 % Normal 43.0-75.0 [facility] Comment on above: Performed By: #### U RCX #### [facility] [address] [address] [address] Caitlin Martinez Platelet mean volume (Bld) [Entitic vol] 9.1 fL Critically low 9.5-13.5 [facility] Comment on above: Performed By: #### U RCX #### [facility] [address] [address] [address] Caitlin Martinez PLT 355 103/ul Normal 150-450 [facility] Comment on above: Performed By: #### U RCX #### [facility] [address] [place] [address] Dr. Caitlin Martinez RBC 3.44 106/ul Critically low 4.20-5.40 [facility] Comment on above: Performed By: #### U RCX #### [facility] [address] [address] [address] Caitlin Martinez WBC 13.3 103/ul Critically high 4.0-11.0 [facility] Comment on above: Performed By: #### U RCX #### [facility] [address] [place] [address] Dr. Caitlin Martinez SCREENon 02-09-2022 SCREEN Negative Normal [facility] Comment on above: Performed By: #### F ETSCRN #### [facility] [address] [address] [address] Caitlin Martinez CBC AUTO DIFFon 02-08-2022 BASO # 0.1 103/ul Normal 0.0-0.1 [facility] Comment on above: Performed By: #### U RCX #### [facility] [address] [address] [address] Caitlin Martinez Basophils/100 WBC (Bld) 0.4 % Normal 0.2-2.0 [facility] Comment on above: Performed By: #### U RCX #### [facility] [address] [address] [address] Caitlin Martinez EO # 0.3 103/ul Normal 0.0-0.7 [facility] Comment on above: Performed By: #### U RCX #### [facility] [address] [place] [address] Dr. Caitlin Martinez Eosinophils/100 WBC (Bld) 2.6 % Normal 0.9-7.0 [facility] Comment on above: Performed By: #### U RCX #### [facility] [address] [place] [address] Dr. Caitlin Martinez Erythrocyte distribution width (RBC) [Ratio] 14.7 % Normal 11.0-15.0 [facility] Comment on above: Performed By: #### U RCX #### [facility] [address] [place] [address] Dr. Caitlin Martinez Hematocrit (Bld) [Volume fraction] 30.6 % Critically low 36.0-48.0 [facility] Comment on above: Performed By: #### U RCX #### [facility] [address] [place] [address] Dr. Caitlin Martinez Hemoglobin (Bld) [Mass/Vol] 9.7 g/dL Critically low 12.0-16.0 [facility] Comment on above: Performed By: #### U RCX #### [facility] [address] [place] [address] Dr. Caitlin Martinez IG # 0.15 10e3/ul Critically high 0.00-0.03 [facility] Comment on above: Performed By: #### U RCX #### [facility] [address] [place] [address] Dr. Caitlin Martinez IG % 1.3 % Critically high 0.0-0.5 [facility] Comment on above: Performed By: #### U RCX #### [facility] [address] [place] [address] Dr. Caitlin Martinez LYMPH # 2.8 103/ul Normal 1.2-3.8 [facility] Comment on above: Performed By: #### U RCX #### [facility] [address] [address] [address] Caitlin Martinez Lymphocytes/100 WBC (Bld) 24.8 % Normal 20.5-60.0 [facility] Comment on above: Performed By: #### U RCX #### [facility] [address] [address] [address] Caitlin Martinze MANUAL DIFF REQ NO Normal [facility] Comment on above: Performed By: #### U RCX #### [facility] [address] [address] [address] Caitlin Martinez MCH (RBC) [Entitic mass] 26.6 pg Critically low 26.7-34.0 [facility] Comment on above: Performed By: #### U RCX #### [facility] [address] [place] [address] Dr. Caitlin Martinez MCHC (RBC) [Mass/Vol] 31.7 g/dL Normal 29.9-35.2 [facility] Comment on above: Performed By: #### U RCX #### [facility] [address] [place] [address] Dr. Caitlin Martinez MCV (RBC) [Entitic vol] 83.8 fL Normal 81.0-99.0 [facility] Comment on above: Performed By: #### U RCX #### [facility] [address] [place] [address] Dr. Caitlin Martinez MONO # 1.0 103/ul Critically high 0.3-0.8 [facility] Comment on above: Performed By: #### U RCX #### [facility] [address] [place] [address] Dr. Caitlin Martinez Monocytes/100 WBC (Bld) 8.7 % Normal 1.7-12.0 [facility] Comment on above: Performed By: #### U RCX #### [facility] [address] [place] [address] Dr. Caitlin Martinez NEUT # 7.0 103/ul Critically high 1.4-6.5 [facility] Comment on above: Performed By: #### U RCX #### [facility] [address] [address] [address] Caitlin Martinez Neutrophils/100 WBC (Bld) 62.2 % Normal 43.0-75.0 [facility] Comment on above: Performed By: #### U RCX #### [facility] [address] [address] [address] Caitlin Martinez Platelet mean volume (Bld) [Entitic vol] 9.0 fL Critically low 9.5-13.5 [facility] Comment on above: Performed By: #### U RCX #### [facility] [address] [address] [address] Caitlin Martinez PLT 373 103/ul Normal 150-450 [facility] Comment on above: Performed By: #### U RCX #### [facility] [address] [place] [address] Dr. Caitlin Martinez RBC 3.65 106/ul Critically low 4.20-5.40 [facility] Comment on above: Performed By: #### U RCX #### [facility] [address] [address] [address] Caitlin Martinez WBC 11.3 103/ul Critically high 4.0-11.0 [facility] Comment on above: Performed By: #### U RCX #### [facility] [address] [place] [address] Dr. Caitlin Martinez [facility] SARS-CoV-2 (COVID-19) RNA JONATAN+probe Ql (Unsp spec) Not detected Normal NOT DETECTED [facility] Comment on above: Result Comment: When [...] for this test is supported by the [facility] of [facility] and Human Service's declaration that [...] used). Performed By: #### C BC #### [facility] [address] [place] [address] Dr. Caitlin Martinez DIRECT COOMBSon 02-08-2022 DIRECT EDWINA Negative Normal [facility] Comment on above: Performed By: #### D IRCMB, ABID #### [facility] [address] [place] [address] Dr. Caitlin Martinez DRUG SCREEN RAPID (URINE)on 02-08-2022 AMP Negative Normal NEGATIVE [facility] Comment on above: Performed By: #### C BC #### [facility] [address] [place] [address] Dr. Caitlin Martinez BAR Negative Normal NEGATIVE [facility] Comment on above: Performed By: #### C BC #### [facility] [address] [place] [address] Dr. Caitlin Martinez BUP Negative Normal NEGATIVE [facility] Comment on above: Performed By: #### C BC #### [facility] [address] [place] [address] Dr. Caitlin Martinez BZO Negative Normal NEGATIVE [facility] Comment on above: Performed By: #### C BC #### [facility] [address] [place] [address] Dr. Caitlin Martinez JEANNA Negative Normal NEGATIVE [facility] Comment on above: Performed By: #### C BC #### [facility] [address] [place] [address] Dr. Caitlin Martinez CUT-OFFS SEE BELOW Normal [facility] Comment on above: Result Comment: AMP [...] ng/mL Performed By: #### C BC #### [facility] [address] [place] [address] Dr. Caitlin Martinez DRUG CUT HEADER DRUG CLASS TEST SYSTEM CUT-OFF CONCENTRATIONS ARE FOLLOWS: Normal [facility] Comment on above: Performed By: #### C BC #### [facility] [address] [place] [address] Dr. Caitlin Martinez mAMP Negative Normal NEGATIVE [facility] Comment on above: Performed By: #### C BC #### [facility] [address] [place] [address] Dr. Caitlin Martinez MTD Negative Normal NEGATIVE [facility] Comment on above: Performed By: #### C BC #### [facility] [address] [place] [address] Dr. Caitlin Martinez OPI Negative Normal NEGATIVE [facility] Comment on above: Performed By: #### C BC #### [facility] [address] [place] [address] Dr. Caitlin Martinez OXY Negative Normal NEGATIVE [facility] Comment on above: Performed By: #### C BC #### [facility] [address] [place] [address] Dr. Caitlin Martinez PCP Negative Normal NEGATIVE [facility] Comment on above: Performed By: #### C BC #### [facility] [address] [place] [address] Dr. Caitlin Martinez PPX Negative Normal NEGATIVE [facility] Comment on above: Performed By: #### C BC #### [facility] [address] [place] [address] Dr. Caitlin Martinez TCA Negative Normal NEGATIVE [facility] Comment on above: Performed By: #### C BC #### [facility] [address] [place] [address] Dr. Caitlin Martinez THC Negative Normal NEGATIVE [facility] Comment on above: Performed By: #### C BC #### [facility] [address] [place] [address] Dr. Caitlin Martinez TYPE AND SCREENon 02-08-2022 TYPE AND SCREEN Negative Normal [facility] Comment on above: Performed By: #### I HORACIO #### [facility] [address] [place] [address] Dr. Caitlin Martinez US PREG BIOPHY W [...] DAVID BLACKMON Date: 2022-02-05 16:28 Normal [facility] AMNISUREon 01-25-2022 AMNISURE Negative Normal NEGATIVE [facility] Comment on above: Performed By: #### A MNI #### [facility] [address] [place] [address] Dr. Caitlin Martinez CULTURE URINEon 01-25-2022 CULTURE URINE Culture Observations : No growth Normal [facility] Comment on above: Performed By: #### U RCX #### [facility] [address] [place] [address] Dr. Caitlin Martinez UA (CLEAN/CATCH) DIRECT SUPPORT STAFF/MICRO I F IND.on 01-25-2022 Bilirubin Ql (U) Negative Normal NEGATIVE [facility] Comment on above: Performed By: #### C VDTBH #### [facility] [address] [place] [address] Dr. Caitlin Martinez Clarity (U) SL CLOUDY Abnormal CLEAR [facility] Comment on above: Performed By: #### C VDTBH #### [facility] [address] [address] [address] Caitlin Martinez Color (U) LT. YELLOW Normal YELLOW [facility] Comment on above: Performed By: #### C VDTBH #### [facility] [address] [place] [address] Dr. Caitlin Martinez Glucose Ql (U) Negative Normal NEGATIVE [facility] Comment on above: Performed By: #### C VDTBH #### [facility] [address] [address] [address] Caitlin Martinez Hemoglobin Ql (U) TRACE-INTACT Abnormal NEGATIVE [facility] Comment on above: Performed By: #### C VDTBH #### [facility] [address] [place] [address] Dr. Caitlin Martinez Ketones Ql (U) Negative Normal NEGATIVE [facility] Comment on above: Performed By: #### C VDTBH #### [facility] [address] [place] [address] Dr. Caitlin Martinez LEUKOCYTES TRACE Abnormal NEGATIVE [facility] Comment on above: Performed By: #### C VDTBH #### [facility] [address] [place] [address] Dr. Caitlin Martinez Nitrite Ql (U) Negative Normal NEGATIVE [facility] Comment on above: Performed By: #### C VDTBH #### [facility] [address] [place] [address] Dr. Caitlin Martinez pH (U) 6.5 [pH] Normal 5-9 [facility] Comment on above: Performed By: #### C VDTBH #### [facility] [address] [place] [address] Dr. Caitlin Martinez SPEC GRAVITY 1.020 Normal 1.005-<=1.025 [facility] Comment on above: Performed By: #### C VDTBH #### [facility] [address] [place] [address] Dr. Caitlin Martinez UA PROTEIN Negative Normal NEGATIVE/ TRACE [facility] Comment on above: Performed By: #### C VDTBH #### [facility] [address] [place] [address] Dr. Caitlin Martinez UR MICRO IND INDICATED Normal [facility] Comment on above: Performed By: #### C VDTBH #### [facility] [address] [place] [address] Dr. Caitlin Martinez Urobilinogen Qn (U) 0.2 {Barbara'U}/dL Normal 0.2 - 1. 0 [facility] Comment on above: Performed By: #### C VDTBH #### [facility] [address] [place] [address] Dr. Caitlin Martinez URINE MICROSCOPIC ONLYon BACTERIA MODERATE Abnormal NONE SEEN [facility] Comment on above: Performed By: #### C VDTBH #### [facility] [address] [place] [address] Dr. Caitlin Martinez Bacteria identified Cx Nom (U) INDICATED Normal [facility] Comment on above: Performed By: #### C VDTBH #### [facility] [address] [place] [address] Dr. Caitlin Martinez CAST NONE SEEN Normal NONE SEEN [facility] Comment on above: Performed By: #### C VDTBH #### [facility] [address] [place] [address] Dr. Caitlin Martinez Crystals LM Nom (Urine sed) NONE SEEN Normal NONE SEEN [facility] Comment on above: Performed By: #### C VDTBH #### [facility] [address] [place] [address] Dr. Caitlin Martinez Epithelial cells LM Ql (Urine sed) FEW Abnormal NONE SEEN /RARE [facility] Comment on above: Performed By: #### C VDTBH #### [facility] [address] [place] [address] Dr. Caitlin Martinez MUCOUS TRACE Abnormal NONE SEEN [facility] Comment on above: Performed By: #### C VDTBH #### [facility] [address] [place] [address] Dr. Caitlin Martinez RBC 2-5 Abnormal 0-2 [facility] Comment on above: Performed By: #### C VDTBH #### [facility] [address] [place] [address] Dr. Caitlin Martinez WBC 0-2 Abnormal NONE SEEN [facility] Comment on above: Performed By: #### C VDTBH #### [facility] [address] [place] [address] Dr. Caitlin Martinez AMYLASEon 01-16-2022 Amylase [Catalytic activity/Vol] 49 U/L Normal 25-115 [facility] Comment on above: Performed By: #### C VDTBH #### [facility] [address] [place] [address] Dr. Caitlin Martinez BUNon 01-16-2022 Urea nitrogen [Mass/Vol] 3.0 mg/dL Critically low 7.0-18.0 [facility] Comment on above: Performed By: #### C BC #### [facility] [address] [place] [address] Dr. Caitlin Martinez CBC AUTO DIFFon 01-16-2022 BASO # 0.1 103/ul Normal 0.0-0.1 [facility] Comment on above: Performed By: #### U RCX #### [facility] [address] [place] [address] Dr. Caitlin Martinez Basophils/100 WBC (Bld) 0.6 % Normal 0.2-2.0 [facility] Comment on above: Performed By: #### U RCX #### [facility] [address] [place] [address] Dr. Caitlin Martinez EO # 0.3 103/ul Normal 0.0-0.7 [facility] Comment on above: Performed By: #### U RCX #### [facility] [address] [place] [address] Dr. Caitlin aMrtinez Eosinophils/100 WBC (Bld) 2.6 % Normal 0.9-7.0 [facility] Comment on above: Performed By: #### U RCX #### [facility] [address] [place] [address] Dr. Caitlin Martinez Erythrocyte distribution width (RBC) [Ratio] 14.4 % Normal 11.0-15.0 [facility] Comment on above: Performed By: #### U RCX #### [facility] [address] [address] [address] Caitlin Martinez Hematocrit (Bld) [Volume fraction] 28.4 % Critically low 36.0-48.0 [facility] Comment on above: Performed By: #### U RCX #### [facility] [address] [address] [address] Caitlin Martinez Hemoglobin (Bld) [Mass/Vol] 9.0 g/dL Critically low 12.0-16.0 [facility] Comment on above: Performed By: #### U RCX #### [facility] [address] [place] [address] Dr. Caitlin Martinez IG # 0.11 10e3/ul Critically high 0.00-0.03 [facility] Comment on above: Performed By: #### U RCX #### [facility] [address] [place] [address] Dr. Caitlin Martinez IG % 1.1 % Critically high 0.0-0.5 [facility] Comment on above: Performed By: #### U RCX #### [facility] [address] [place] [address] Dr. Caitlin Martinez LYMPH # 2.2 103/ul Normal 1.2-3.8 [facility] Comment on above: Performed By: #### U RCX #### [facility] [address] [place] [address] Dr. Caitlin Martinez Lymphocytes/100 WBC (Bld) 21.0 % Normal 20.5-60.0 [facility] Comment on above: Performed By: #### U RCX #### [facility] [address] [place] [address] Dr. Caitlin Martinez MANUAL DIFF REQ NO Normal [facility] Comment on above: Performed By: #### U RCX #### [facility] [address] [place] [address] Dr. Caitlin Martinez MCH (RBC) [Entitic mass] 28.2 pg Normal 26.7-34.0 [facility] Comment on above: Performed By: #### U RCX #### [facility] [address] [address] [address] Caitlin Martinez MCHC (RBC) [Mass/Vol] 31.7 g/dL Normal 29.9-35.2 [facility] Comment on above: Performed By: #### U RCX #### [facility] [address] [address] [address] Caitlin Martinez MCV (RBC) [Entitic vol] 89.0 fL Normal 81.0-99.0 [facility] Comment on above: Performed By: #### U RCX #### [facility] [address] [address] [address] Caitlin Martinez MONO # 0.9 103/ul Critically high 0.3-0.8 [facility] Comment on above: Performed By: #### U RCX #### [facility] [address] [address] [address] Caitlin Martinez Monocytes/100 WBC (Bld) 8.9 % Normal 1.7-12.0 [facility] Comment on above: Performed By: #### U RCX #### [facility] [address] [address] [address] Caitlin Martinez NEUT # 6.8 103/ul Critically high 1.4-6.5 [facility] Comment on above: Performed By: #### U RCX #### [facility] [address] [address] [address] Caitlin Martinez Neutrophils/100 WBC (Bld) 65.8 % Normal 43.0-75.0 [facility] Comment on above: Performed By: #### U RCX #### [facility] [address] [address] [address] Caitlin Martinez Platelet mean volume (Bld) [Entitic vol] 8.6 fL Critically low 9.5-13.5 [facility] Comment on above: Performed By: #### U RCX #### [facility] [address] [address] [address] Caitlin Martinez PLT 322 103/ul Normal 150-450 [facility] Comment on above: Performed By: #### U RCX #### [facility] [address] [address] [address] Caitlin Martinez RBC 3.19 106/ul Critically low 4.20-5.40 [facility] Comment on above: Performed By: #### U RCX #### [facility] [address] [address] [address] Caitlin Martinez WBC 10.3 103/ul Normal 4.0-11.0 [facility] Comment on above: Performed By: #### U RCX #### [facility] [address] [address] [address] Caitlin Martinez CREATININEon 01-16-2022 Creatinine [Mass/Vol] 0.55 mg/dL Normal 0.55-1.02 [facility] Comment on above: Performed By: #### C VDTBH #### [facility] [address] [address] [address] Caitlin Martinez EGFR-AF ANDORRAN >60 Normal >=60 [facility] Comment on above: Performed By: #### C VDTBH #### [facility] [address] [address] [address] Caitlin Martinez EGFR-NON AF ANDORRAN >60 Normal >=60 [facility] Comment on above: Performed By: #### C VDTBH #### [facility] [address] [address] [address] Caitlin Martinez ELECTROLYTESon 01-16-2022 Anion gap [Moles/Vol] 13.6 mmol/L Normal [facility] Comment on above: Performed By: #### C VDTBH #### [facility] [address] [address] [address] Caitlin Martinez Chloride [Moles/Vol] 106 mmol/L Normal 98-107 [facility] Comment on above: Performed By: #### C VDTBH #### [facility] [address] [address] [address] Caitlin Martinez CO2 [Moles/Vol] 22.9 mmol/L Normal 21.0-32.0 [facility] Comment on above: Performed By: #### C VDTBH #### [facility] [address] [place] [address] Dr. Caitlin Martinez Potassium [Moles/Vol] 3.5 mmol/L Normal 3.5-5.1 [facility] Comment on above: Performed By: #### C VDTBH #### [facility] [address] [place] [address] Dr. Caitlin Martinez Sodium [Moles/Vol] 139 mmol/L Normal 136-145 [facility] Comment on above: Performed By: #### C VDTBH #### [facility] [address] [place] [address] Dr. Caitlin Martinez LIPASEon 01-16-2022 Lipase [Catalytic activity/Vol] 66.0 U/L Critically low 73.0-393.0 [facility] Comment on above: Performed By: #### C BC #### [facility] [address] [place] [address] Dr. Caitlin Martinez SGOTon 01-16-2022 AST [Catalytic activity/Vol] 12 U/L Critically low 15-37 [facility] Comment on above: Performed By: #### C VDTBH #### [facility] [address] [place] [address] Dr. Caitlin Martinez SGPTon 01-16-2022 ALT [Catalytic activity/Vol] 9 U/L Critically low 14-59 [facility] Comment on above: Performed By: #### C VDTBH #### [facility] [address] [place] [address] Dr. Caitlin Martinez CBC AUTO DIFFon 01-15-2022 BASO # 0.1 103/ul Normal 0.0-0.1 [facility] Comment on above: Performed By: #### C VDTBH #### [facility] [address] [place] [address] Dr. Caitlin Martinez Basophils/100 WBC (Bld) 0.4 % Normal 0.2-2.0 [facility] Comment on above: Performed By: #### C VDTBH #### [facility] [address] [place] [address] Dr. Caitlin Martinez EO # 0.2 103/ul Normal 0.0-0.7 [facility] Comment on above: Performed By: #### C VDTBH #### [facility] [address] [place] [address] Dr. Caitlin Martinez Eosinophils/100 WBC (Bld) 1.4 % Normal 0.9-7.0 [facility] Comment on above: Performed By: #### C VDTBH #### [facility] [address] [place] [address] Dr. Caitlin Martinez Erythrocyte distribution width (RBC) [Ratio] 14.1 % Normal 11.0-15.0 [facility] Comment on above: Performed By: #### C VDTBH #### [facility] [address] [place] [address] Dr. Caitlin Martinez Hematocrit (Bld) [Volume fraction] 28.4 % Critically low 36.0-48.0 [facility] Comment on above: Performed By: #### C VDTBH #### [facility] [address] [place] [address] Dr. Caitlin Martinez Hemoglobin (Bld) [Mass/Vol] 9.0 g/dL Critically low 12.0-16.0 [facility] Comment on above: Performed By: #### C VDTBH #### [facility] [address] [place] [address] Dr. Caitlin Martinez IG # 0.18 10e3/ul Critically high 0.00-0.03 [facility] Comment on above: Performed By: #### C VDTBH #### [facility] [address] [place] [address] Dr. Caitlin Martinez IG % 1.3 % Critically high 0.0-0.5 [facility] Comment on above: Performed By: #### C VDTBH #### [facility] [address] [place] [address] Dr. Caitlin Martinez LYMPH # 2.4 103/ul Normal 1.2-3.8 [facility] Comment on above: Performed By: #### C VDTBH #### [facility] [address] [place] [address] Dr. Caitlin Martinez Lymphocytes/100 WBC (Bld) 16.8 % Critically low 20.5-60.0 [facility] Comment on above: Performed By: #### C VDTBH #### [facility] [address] [place] [address] Dr. Caitlin Martinez MANUAL DIFF REQ NO Normal [facility] Comment on above: Performed By: #### C VDTBH #### [facility] [address] [place] [address] Dr. Caitlin Martinez MCH (RBC) [Entitic mass] 27.9 pg Normal 26.7-34.0 [facility] Comment on above: Performed By: #### C VDTBH #### [facility] [address] [place] [address] Dr. Caitlin Martinez MCHC (RBC) [Mass/Vol] 31.7 g/dL Normal 29.9-35.2 [facility] Comment on above: Performed By: #### C VDTBH #### [facility] [address] [place] [address] Dr. Caitlin Martinez MCV (RBC) [Entitic vol] 87.9 fL Normal 81.0-99.0 [facility] Comment on above: Performed By: #### C VDTBH #### [facility] [address] [place] [address] Dr. Caitlin Martinze MONO # 0.9 103/ul Critically high 0.3-0.8 [facility] Comment on above: Performed By: #### C VDTBH #### [facility] [address] [place] [address] Dr. Caitlin Martinez Monocytes/100 WBC (Bld) 6.7 % Normal 1.7-12.0 [facility] Comment on above: Performed By: #### C VDTBH #### [facility] [address] [place] [address] Dr. Caitlin Martinez NEUT # 10.3 103/ul Critically high 1.4-6.5 [facility] Comment on above: Performed By: #### C VDTBH #### [facility] [address] [address] [address] Caitlin Martinez Neutrophils/100 WBC (Bld) 73.4 % Normal 43.0-75.0 [facility] Comment on above: Performed By: #### C VDTBH #### [facility] [address] [address] [address] Ciatlin Martinez Platelet mean volume (Bld) [Entitic vol] 9.0 fL Critically low 9.5-13.5 [facility] Comment on above: Performed By: #### C VDTBH #### [facility] [address] [address] [address] Caitlin Martinez PLT 318 103/ul Normal 150-450 [facility] Comment on above: Performed By: #### C VDTBH #### [facility] [address] [address] [address] Caitlin Martinez RBC 3.23 106/ul Critically low 4.20-5.40 [facility] Comment on above: Performed By: #### C VDTBH #### [facility] [address] [address] [address] Caitlin Martinez WBC 14.0 103/ul Critically high 4.0-11.0 [facility] Comment on above: Performed By: #### C VDTBH #### [facility] [address] [address] [address] ABD/PELVIS WO CONon [...] DAVID BLACKMON Date: 2022-01-15 16:31 Normal [facility] CULTURE URINEon 01-15-2022 CULTURE URINE Culture Observations : LIGHT GROWTH OF MIXED GENITAL COSME. NO POTENTIAL PATHOGENS SEEN. Normal [facility] Comment on above: Performed By: #### U RCX #### [facility] [address] [place] [address] Dr. Caitlin Martinez UA (CLEAN/CATCH) DIRECT SUPPORT STAFF/MICRO I F IND.on 01-15-2022 Bilirubin Ql (U) Negative Normal NEGATIVE [facility] Comment on above: Performed By: #### C BC #### [facility] [address] [place] [address] Dr. Caitlin Martinez Clarity (U) CLEAR Normal CLEAR [facility] Comment on above: Performed By: #### C BC #### [facility] [address] [place] [address] Dr. Caitlin Martinez Color (U) LT. YELLOW Normal YELLOW [facility] Comment on above: Performed By: #### C BC #### [facility] [address] [place] [address] Dr. Caitlin Martinez Glucose Ql (U) Negative Normal NEGATIVE [facility] Comment on above: Performed By: #### C BC #### [facility] [address] [place] [address] Dr. Caitlin Martinez Hemoglobin Ql (U) Negative Normal NEGATIVE [facility] Comment on above: Performed By: #### C BC #### [facility] [address] [place] [address] Dr. Caitlin Martinez Ketones Ql (U) Negative Normal NEGATIVE [facility] Comment on above: Performed By: #### C BC #### [facility] [address] [place] [address] Dr. Caitlin Martinez LEUKOCYTES TRACE Abnormal NEGATIVE [facility] Comment on above: Performed By: #### C BC #### [facility] [address] [place] [address] Dr. Caitlin Martinez Nitrite Ql (U) Negative Normal NEGATIVE [facility] Comment on above: Performed By: #### C BC #### [facility] [address] [place] [address] Dr. Caitlin Martinez pH (U) 7.0 [pH] Normal 5-9 [facility] Comment on above: Performed By: #### C BC #### [facility] [address] [place] [address] Dr. Caitlin Martinez SPEC GRAVITY 1.010 Normal 1.005-<=1.025 [facility] Comment on above: Performed By: #### C BC #### [facility] [address] [place] [address] Dr. Caitlin Martinez UA PROTEIN Negative Normal NEGATIVE/ TRACE [facility] Comment on above: Performed By: #### C BC #### [facility] [address] [place] [address] Dr. Caitlin Martinez UR MICRO IND INDICATED Normal [facility] Comment on above: Performed By: #### C BC #### [facility] [address] [place] [address] Dr. Caitlin Martinez Urobilinogen Qn (U) 0.2 {Barbara'U}/dL Normal 0.2 - 1. 0 [facility] Comment on above: Performed By: #### C BC #### [facility] [address] [place] [address] Dr. Caitlin Martinez URINE MICROSCOPIC ONLYon BACTERIA MODERATE Abnormal NONE SEEN [facility] Comment on above: Performed By: #### C BC #### [facility] [address] [place] [address] Dr. Caitlin Martinez Bacteria identified Cx Nom (U) INDICATED Normal [facility] Comment on above: Performed By: #### C BC #### [facility] [address] [place] [address] Dr. Caitlin Martinez CAST NONE SEEN Normal NONE SEEN [facility] Comment on above: Performed By: #### C BC #### [facility] [address] [place] [address] Dr. Caitlin Martinez Crystals LM Nom (Urine sed) NONE SEEN Normal NONE SEEN [facility] Comment on above: Performed By: #### C BC #### [facility] [address] [place] [address] Dr. Caitlin Martinez Epithelial cells LM Ql (Urine sed) MODERATE Abnormal NONE SEEN /RARE [facility] Comment on above: Performed By: #### C BC #### [facility] [address] [place] [address] Dr. Caitlin Martinez MUCOUS NONE SEEN Normal NONE SEEN [facility] Comment on above: Performed By: #### C BC #### [facility] [address] [place] [address] Dr. Caitlin Martinez RBC NONE SEEN Abnormal 0-2 [facility] Comment on above: Performed By: #### C BC #### [facility] [address] [place] [address] Dr. Caitlin Martinez WBC 2-5 Abnormal NONE SEEN [facility] Comment on above: Performed By: #### C BC #### [facility] [address] [place] [address] Dr. Caitlin Martinez US APPENDIXon 01-15-2022 US [...] DAVID BLACKMON Date: 2022-01-15 14:14 Normal [facility] US PREG GROWTHon 01-15-2022 US PREG [...] DAVID BLACKMON Date: 2022-01-15 10:59 Normal [facility] US PREG PLACENTAon US PREG PLACENTA [...] DAVID BLACKMON Date: 2022-01-15 10:57 Normal [facility] UA (CLEAN/CATCH) DIRECT SUPPORT STAFF/MICRO I F IND.on 12-29-2021 Bilirubin Ql (U) Negative Normal NEGATIVE [facility] Comment on above: Performed By: #### C BC #### [facility] [address] [place] [address] Dr. Caitlin Martinez Clarity (U) CLEAR Normal CLEAR [facility] Comment on above: Performed By: #### C BC #### [facility] [address], [place] [address] Dr. Caitlin Martinez Color (U) LT. YELLOW Normal YELLOW [facility] Comment on above: Performed By: #### C BC #### [facility] [address] [address] [address] Caitlin Martinez Glucose Ql (U) Negative Normal NEGATIVE [facility] Comment on above: Performed By: #### C BC #### [facility] [address] [place] [address] Dr. Caitlin Martinez Hemoglobin Ql (U) Negative Normal NEGATIVE [facility] Comment on above: Performed By: #### C BC #### [facility] [address] [address] [address] Caitlin Martinez Ketones Ql (U) Negative Normal NEGATIVE [facility] Comment on above: Performed By: #### C BC #### [facility] [address] [place] [address] Dr. Caitlin Martinez LEUKOCYTES Negative Normal NEGATIVE [facility] Comment on above: Performed By: #### C BC #### [facility] [address] [place] [address] Dr. Caitlin Martinez Nitrite Ql (U) Negative Normal NEGATIVE [facility] Comment on above: Performed By: #### C BC #### [facility] [address] [place] [address] Dr. Caitlin Martinez pH (U) 6.5 [pH] Normal 5-9 [facility] Comment on above: Performed By: #### C BC #### [facility] [address] [place] [address] Dr. Caitlin Martinez SPEC GRAVITY 1.020 Normal 1.005-<=1.025 [facility] Comment on above: Performed By: #### C BC #### [facility] [address] [place] [address] Dr. Caitlin Martinez UA PROTEIN Negative Normal NEGATIVE/ TRACE [facility] Comment on above: Performed By: #### C BC #### [facility] [address] [place] [address] Dr. Caitlin Maritnez UR MICRO IND NOT INDICATED Normal [facility] Comment on above: Performed By: #### C BC #### [facility] [address] [place] [address] Dr. Caitlin Martinez Urobilinogen Qn (U) 1.0 {Barbara'U}/dL Normal 0.2 - 1. 0 [facility] Comment on above: Performed By: #### C BC #### [facility] [address] [place] [address] Dr. Caitlin Martinez US PREG CERVICAL LENGTHon [...] KIRK OATES Date: 2021-12-29 15:53 Normal [facility] UA (CLEAN/CATCH) DIRECT SUPPORT STAFF/MICRO I F IND.on 12-18-2021 Bilirubin Ql (U) Negative Normal NEGATIVE [facility] Comment on above: Performed By: #### C BC #### [facility] [address] [place] [address] Dr. Caitlin Martinez Clarity (U) CLEAR Normal CLEAR [facility] Comment on above: Performed By: #### C BC #### [facility] [address] [place] [address] Dr. Caitlin Martinez Color (U) YELLOW Normal YELLOW [facility] Comment on above: Performed By: #### C BC #### [facility] [address] [place] [address] Dr. Caitlin Martinez Glucose Ql (U) Negative Normal NEGATIVE [facility] Comment on above: Performed By: #### C BC #### [facility] [address] [place] [address] Dr. Caitlin Martinez Hemoglobin Ql (U) Negative Normal NEGATIVE [facility] Comment on above: Performed By: #### C BC #### [facility] [address] [place] [address] Dr. Caitlin Martinez Ketones Ql (U) TRACE Abnormal NEGATIVE [facility] Comment on above: Performed By: #### C BC #### [facility] [address] [place] [address] Dr. Caitlin Martinez LEUKOCYTES Negative Normal NEGATIVE [facility] Comment on above: Performed By: #### C BC #### [facility] [address] [place] [address] Dr. Caitlin Martinez Nitrite Ql (U) Negative Normal NEGATIVE [facility] Comment on above: Performed By: #### C BC #### [facility] [address] [place] [address] Dr. Caitlin Martinez pH (U) 6.0 [pH] Normal 5-9 [facility] Comment on above: Performed By: #### C BC #### [facility] [address] [place] [address] Dr. Caitlin Martinez SPEC GRAVITY 1.025 Normal 1.005-<=1.025 [facility] Comment on above: Performed By: #### C BC #### [facility] [address] [place] [address] Dr. Caitlin Martinez UA PROTEIN Negative Normal NEGATIVE/ TRACE [facility] Comment on above: Performed By: #### C BC #### [facility] [address] [place] [address] Dr. Caitlin Martinez UR MICRO IND NOT INDICATED Normal [facility] Comment on above: Performed By: #### C BC #### [facility] [address] [place] [address] Dr. Caitlin Martinez Urobilinogen Qn (U) 4 {Barbara'U}/dL Abnormal 0.2 - 1.0 [facility] Comment on above: Performed By: #### C BC #### [facility] [address] [place] [address] Dr. Caitlin Martinez RHOGAMon 11-28-2021 RHOGAM Status Information Issued Quantity 1 Product ID Rh Immune Globulin Lot Number [id number] Issue Date/Time [id number] Normal [facility] Comment on above: Performed By: #### I HORACIO #### [facility] [address] [place] [address] Dr. Caitlin Martinez TYPE AND SCREENon 11-27-2021 TYPE AND SCREEN Negative Normal [facility] Comment on above: Performed By: #### T NS #### [facility] [address] [place] [address] Dr. Caitlin Martinez CULTURE URINEon 11-23-2021 CULTURE URINE Culture Observations : No growth Normal [facility] Comment on above: Performed By: #### I HORACIO #### [facility] [address] [place] [address] Dr. Caitlin Martinez UA (CLEAN/CATCH) DIRECT SUPPORT STAFF/MICRO I F IND.on 11-23-2021 Bilirubin Ql (U) Negative Normal NEGATIVE [facility] Comment on above: Performed By: #### U RCX #### [facility] [address] [place] [address] Dr. Caitlin Martinez Clarity (U) CLEAR Normal CLEAR [facility] Comment on above: Performed By: #### U RCX #### [facility] [address] [place] [address] Dr. Caitlin Martinez Color (U) LT. YELLOW Normal YELLOW [facility] Comment on above: Performed By: #### U RCX #### [facility] [address] [place] [address] Dr. Caitlin Martinez Glucose Ql (U) Negative Normal NEGATIVE [facility] Comment on above: Performed By: #### U RCX #### [facility] [address] [place] [address] Dr. Caitlin Martinez Hemoglobin Ql (U) Negative Normal NEGATIVE [facility] Comment on above: Performed By: #### U RCX #### [facility] [address] [place] [address] Dr. Caitlin Martinez Ketones Ql (U) Negative Normal NEGATIVE [facility] Comment on above: Performed By: #### U RCX #### [facility] [address] [place] [address] Dr. Caitlin Martinez LEUKOCYTES SMALL Abnormal NEGATIVE [facility] Comment on above: Performed By: #### U RCX #### [facility] [address] [place] [address] Dr. Caitlin Martinez Nitrite Ql (U) Negative Normal NEGATIVE [facility] Comment on above: Performed By: #### U RCX #### [facility] [address] [place] [address] Dr. Caitlin Martinez pH (U) 6.5 [pH] Normal 5-9 [facility] Comment on above: Performed By: #### U RCX #### [facility] [address] [place] [address] Dr. Caitlin Martinez SPEC GRAVITY 1.010 Normal 1.005-<=1.025 [facility] Comment on above: Performed By: #### U RCX #### [facility] [address] [place] [address] Dr. Caitlin Martinez UA PROTEIN Negative Normal NEGATIVE/ TRACE [facility] Comment on above: Performed By: #### U RCX #### [facility] [address] [place] [address] Dr. Caitlin Martinez UR MICRO IND INDICATED Normal [facility] Comment on above: Performed By: #### U RCX #### [facility] [address] [place] [address] Dr. Caitlin Martinez Urobilinogen Qn (U) 0.2 {Barbara'U}/dL Normal 0.2 - 1. 0 [facility] Comment on above: Performed By: #### U RCX #### [facility] [address] [place] [address] Dr. Caitlin Martinez URINE MICROSCOPIC ONLYon BACTERIA TRACE Abnormal NONE SEEN [facility] Comment on above: Performed By: #### U RCX #### [facility] [address] [place] [address] Dr. Caitlin Martinez Bacteria identified Cx Nom (U) INDICATED Normal [facility] Comment on above: Performed By: #### U RCX #### [facility] [address] [place] [address] Dr. Caitlin Martinez CAST SEEN Abnormal NONE SEEN [facility] Comment on above: Performed By: #### U RCX #### [facility] [address] [place] [address] Dr. Caitlin Martinez Crystals LM Nom (Urine sed) SEEN Abnormal NONE SEEN [facility] Comment on above: Performed By: #### U RCX #### [facility] [address] [place] [address] Dr. Caitlin Martinez Epithelial cells LM Ql (Urine sed) RARE Normal NONE SEEN /RARE [facility] Comment on above: Performed By: #### U RCX #### [facility] [address] [place] [address] Dr. Caitlin Martinez MUCOUS TRACE Abnormal NONE SEEN [facility] Comment on above: Performed By: #### U RCX #### [facility] [address] [place] [address] Dr. Caitlin Martinez RBC 0-2 Normal 0-2 [facility] Comment on above: Performed By: #### U RCX #### [facility] [address] [place] [address] Dr. Caitlin Martinez WBC 2-5 Abnormal NONE SEEN [facility] Comment on above: Performed By: #### U RCX #### [facility] [address] [place] [address] Dr. Caitlin Martinez GLUCOSE - 1HRon 11-06-2021 Glucose [Mass/Vol] 131 mg/dL Critically high 74-106 T [facility] Comment on above: Performed By: #### I HORACIO #### [facility] [address] [place] [address] Dr. Caitlin Martinez HEMOGRAM AND PLATELon 2021 Hematocrit (Bld) [Volume fraction] 34.2 % Critically low 36.0-48.0 [facility] Comment on above: Performed By: #### C BC #### [facility] [address] [place] [address] Dr. Caitlin Martinez Hemoglobin (Bld) [Mass/Vol] 11.3 g/dL Critically low 12.0-16.0 [facility] Comment on above: Performed By: #### C BC #### [facility] [address] [place] [address] Dr. Caitlin Martinez MCH (RBC) [Entitic mass] 31.7 pg Normal 26.7-34.0 [facility] Comment on above: Performed By: #### C BC #### [facility] [address] [place] [address] Dr. Caitlin Martinez MCHC (RBC) [Mass/Vol] 33.0 g/dL Normal 29.9-35.2 [facility] Comment on above: Performed By: #### C BC #### [facility] [address] [place] [address] Dr. Caitlin Martinez MCV (RBC) [Entitic vol] 96.1 fL Normal 81.0-99.0 [facility] Comment on above: Performed By: #### C BC #### [facility] [address] [place] [address] Dr. Caitlin Martinez PLT 372 103/ul Normal 150-450 [facility] Comment on above: Performed By: #### C BC #### [facility] [address] [place] [address] Dr. Caitlin Martinez RBC 3.56 106/ul Critically low 4.20-5.40 [facility] Comment on above: Performed By: #### C BC #### [facility] [address] [place] [address] Dr. Caitlin Martinez WBC 10.1 103/ul Normal 4.0-11.0 [facility] Comment on above: Performed By: #### C BC #### [facility] [address] [place] [address] Dr. Caitlin Martinez CHLAMYDIA/GONOCOCCUS JONATAN (SW AB/URINE/PAPon 10-31-2021 Chlamydia trachomatis, JONATAN Negative Normal Negative [facility] Comment on above: Performed By: #### C BC #### [facility] [address] [place] [address] Dr. Caitlin Martinez Neisseria gonorrhoeae, JONATAN Negative Normal Negative [facility] Comment on above: Performed By: #### C BC #### [facility] [address] [place] [address] Dr. Caitlin Martinez VAGINITIS/VAGINOSIS DNA PROB Paramjit 10-29-2021 Selena species Negative Normal Negative [facility] Comment on above: Performed By: #### U RCX #### [facility] [address] [address] [address] Caitlin Martinez Gardnerella vaginalis Negative Normal Negative [facility] Comment on above: Performed By: #### U RCX #### [facility] [address] [place] [address] Dr. Caitlin Martinez Trichomonas vaginalis Negative Normal Negative [facility] Comment on above: Performed By: #### U RCX #### [facility] [address] [place] [address] Dr. Caitlin Martinez US PREG INCOMPLETE ANATOMYon [...] DAVID BLACKMON Date: 2021-10-26 12:05 Normal [facility] CBC W MANUAL DIFFon 10-25-19 22 ATYPICAL LYMPH # Normal [facility] Comment on above: Performed By: #### U RCX #### [facility] [address] [place] [address] Dr. Caitlin Martinez ATYPICAL LYMPH % Normal [facility] Comment on above: Performed By: #### U RCX #### [facility] [address] [place] [address] Dr. Caitlin Martinez BAND # 0.1 103/ul Normal 0.0-0.3 [facility] Comment on above: Performed By: #### U RCX #### [facility] [address] [place] [address] Dr. Caitlin Martinez BAND % 1 % Normal 0-5 [facility] Comment on above: Performed By: #### U RCX #### [facility] [address] [place] [address] Dr. Caitlin Martinez BASOM # 0.00 103/ul Normal 0.00-0.10 [facility] Comment on above: Performed By: #### U RCX #### [facility] [address] [place] [address] Dr. Caitlin Martinez BASOM % 0.0 % Critically low 0.2-2.0 [facility] Comment on above: Performed By: #### U RCX #### [facility] [address] [place] [address] Dr. Caitlin Martinez BLAST # Normal [facility] Comment on above: Performed By: #### U RCX #### [facility] [address] [place] [address] Dr. Caitlin Martinez BLAST % Normal [facility] Comment on above: Performed By: #### U RCX #### [facility] [address] [place] [address] Dr. Caitlin Martinez CORRECTED WBC Normal 4.0-11.0 [facility] Comment on above: Performed By: #### U RCX #### [facility] [address] [place] [address] Dr. Caitlin Martinez EOS # 0.12 103/ul Normal 0.00-0.70 [facility] Comment on above: Performed By: #### U RCX #### [facility] [address] [place] [address] Dr. Caitlin Martinez EOS% 1.0 % Normal 0.9-7.0 [facility] Comment on above: Performed By: #### U RCX #### [facility] [address] [place] [address] Dr. Caitlin Martinez HCT 31.5 % Critically low 36.0-48.0 [facility] Comment on above: Performed By: #### U RCX #### [facility] [address] [place] [address] Dr. Caitlin Martinez HGB 10.5 g/dl Critically low 12.0-16.0 [facility] Comment on above: Performed By: #### U RCX #### [facility] [address] [place] [address] Dr. Caitlin Martinez LYMPHM # 0.37 103/ul Critically low 1.20-3.80 [facility] Comment on above: Performed By: #### U RCX #### [facility] [address] [place] [address] Dr. Caitlin Martinez LYMPHM% 3.0 % Critically low 20.5-60.0 [facility] Comment on above: Performed By: #### U RCX #### [facility] [address] [place] [address] Dr. Caitlin Martinez MCH 31.8 pg Normal 26.7-34.0 [facility] Comment on above: Performed By: #### U RCX #### [facility] [address] [place] [address] Dr. Caitlin Martinez MCHC 33.3 g/dl Normal 29.9-35.2 [facility] Comment on above: Performed By: #### U RCX #### [facility] [address] [place] [address] Dr. Caitlin Martinez MCV 95.5 fL Normal 81.0-99.0 [facility] Comment on above: Performed By: #### U RCX #### [facility] [address] [place] [address] Dr. Caitlin Martinez METAMYELOCYTE # Normal [facility] Comment on above: Performed By: #### U RCX #### [facility] [address] [place] [address] Dr. Caitlin Martinez METAMYELOCYTE % Normal [facility] Comment on above: Performed By: #### U RCX #### [facility] [address] [place] [address] Dr. Caitlin Martinez MONOM# 0.73 103/ul Normal 0.30-0.80 [facility] Comment on above: Performed By: #### U RCX #### [facility] [address] [place] [address] Dr. Caitlin Martinez MONOM% 6.0 % Normal 1.7-12.0 [facility] Comment on above: Performed By: #### U RCX #### [facility] [address] [address] [address] Caitlin Martinez MPV 9.5 fL Normal 9.5-13.5 [facility] Comment on above: Performed By: #### U RCX #### [facility] [address] [place] [address] Dr. Caitlin Martinez MYELOCYTE # Normal [facility] Comment on above: Performed By: #### U RCX #### [facility] [address] [address] [address] Caitlin Martinez MYELOCYTE % Normal [facility] Comment on above: Performed By: #### U RCX #### [facility] [address] [address] [address] Caitlin Martinez NRBC Normal [facility] Comment on above: Performed By: #### U RCX #### [facility] [address] [place] [address] Dr. Caitlin Martinez PLT 275 103/ul Normal 150-450 [facility] Comment on above: Performed By: #### U RCX #### [facility] [address] [place] [address] Dr. Caitlin Martinez RBC 3.30 106/ul Critically low 4.20-5.40 [facility] Comment on above: Performed By: #### U RCX #### [facility] [address] [place] [address] Dr. Caitlin Martinez RDW 13.6 % Normal 11.0-15.0 [facility] Comment on above: Performed By: #### U RCX #### [facility] [address] [place] [address] Dr. Caitlin Martinez SEG # 10.86 103/ul Critically high 1.40-6.50 [facility] Comment on above: Performed By: #### U RCX #### [facility] [address] [place] [address] Dr. Caitlin Martinez SEG % 89.0 % Critically high 43.0-75.0 [facility] Comment on above: Performed By: #### U RCX #### [facility] [address] [place] [address] Dr. Caitlin Martinez WBC 12.2 103/ul Critically high 4.0-11.0 [facility] Comment on above: Performed By: #### U RCX #### [facility] [address] [place] [address] Dr. Caitlin Martinez ER URINE PROFILEon 2 Bilirubin Ql (U) Negative Normal NEGATIVE [facility] Comment on above: Performed By: #### C VDTBH #### [facility] [address] [place] [address] Dr. Caitlin Martinez Clarity (U) SL CLOUDY Abnormal CLEAR [facility] Comment on above: Performed By: #### C VDTBH #### [facility] [address] [place] [address] Dr. Caitlin Martinez Color (U) YELLOW Normal YELLOW [facility] Comment on above: Performed By: #### C VDTBH #### [facility] [address] [place] [address] Dr. Caitlin Martinez ERUAHNadine A micrscopic examination will be performed if indicated. Normal [facility] Comment on above: Performed By: #### C VDTBH #### [facility] [address] [place] [address] Dr. Caitlin Martinez Glucose Ql (U) Negative Normal NEGATIVE [facility] Comment on above: Performed By: #### C VDTBH #### [facility] [address] [place] [address] Dr. Caitlin Martinez Hemoglobin Ql (U) Negative Normal NEGATIVE [facility] Comment on above: Performed By: #### C VDTBH #### [facility] [address] [place] [address] Dr. Caitlin Martinez Ketones Ql (U) >=80 Abnormal NEGATIVE [facility] Comment on above: Performed By: #### C VDTBH #### [facility] [address] [place] [address] Dr. Caitlin Martinez LEUKOCYTES Negative Normal NEGATIVE [facility] Comment on above: Performed By: #### C VDTBH #### [facility] [address] [place] [address] Dr. Caitlin Martinez Nitrite Ql (U) Negative Normal NEGATIVE [facility] Comment on above: Performed By: #### C VDTBH #### [facility] [address] [place] [address] Dr. Caitlin Martinez pH (U) 6.0 [pH] Normal 5-9 [facility] Comment on above: Performed By: #### C VDTBH #### [facility] [address] [place] [address] Dr. Caitlin Martinez SPEC GRAVITY 1.020 Normal 1.005-<=1.025 [facility] Comment on above: Performed By: #### C VDTBH #### [facility] [address] [place] [address] Dr. Caitlin Martinez UA PROTEIN Negative Normal NEGATIVE/ TRACE [facility] Comment on above: Performed By: #### C VDTBH #### [facility] [address] [place] [address] Dr. Caitlin Martinez UR MICRO IND NOT INDICATED Normal [facility] Comment on above: Performed By: #### C VDTBH #### [facility] [address] [place] [address] Dr. Caitlin Martinez Urobilinogen Qn (U) 1.0 {Barbara'U}/dL Normal 0.2 - 1. 0 [facility] Comment on above: Performed By: #### C VDTBH #### [facility] [address] [place] [address] Dr. Caitlin Martinez INFLUENZA A AND B AGon 10-24 INFLUBNEG SEE BELOW Normal [facility] Comment on above: Result Comment: Nega tive for Flu B protein antigen. Infection due to Flu B cannot be ruled out. Flu B antigen in the sample may be below the detection limit of the test. Performed By: #### C VDTBH #### [facility] [address] [place] [address] Dr. Caitlin Martinez INFLUENZA A AG Positive Abnormal NEGATIVE SEE COMMENT [facility] Comment on above: Performed By: #### C VDTBH #### [facility] [address] [place] [address] Dr. Caitlin Martinez INFLUENZA B AG Negative Normal NEGATIVE SEE COMMENT [facility] Comment on above: Performed By: #### C VDTBH #### [facility] [address] [place] [address] Dr. Caitlin Martinez INFLUPOSH SEE BELOW Normal [facility] Comment on above: Result Comment: NOTE : Live attenuated influenzae vaccine viruses can cause a positive result for a rapid influenza diagnostic test if administered up to 7 days prior to rapid testing. Performed By: #### C VDTBH #### [facility] [address] [place] [address] Dr. Caitlin Martinez INTERNAL CONTROLS Within Normal Limits Normal Wi thin Normal Limits [facility] Comment on above: Performed By: #### C VDTBH #### [facility] [address] [place] [address] Dr. Caitlin Martinez PROF CHEM 8 (BAS METB)on Anion gap [Moles/Vol] 14.4 mmol/L Normal [facility] Comment on above: Performed By: #### D IRCMB, ABID #### [facility] [address] [place] [address] Dr. Caitlin Martinez Calcium [Mass/Vol] 8.4 mg/dL Critically low 8.5-10.1 [facility] Comment on above: Performed By: #### D IRCMB, ABID #### [facility] [address] [place] [address] Dr. Caitlin Martinez Chloride [Moles/Vol] 101 mmol/L Normal 98-107 [facility] Comment on above: Performed By: #### D IRCMB, ABID #### [facility] [address] [place] [address] Dr. Catilin Martinez CO2 [Moles/Vol] 19.7 mmol/L Critically low 21.0-32.0 [facility] Comment on above: Performed By: #### D IRCMB, ABID #### [facility] [address] [place] [address] Dr. Caitlin Martinez Creatinine [Mass/Vol] 0.55 mg/dL Normal 0.55-1.02 [facility] Comment on above: Performed By: #### D IRCMB, ABID #### [facility] [address] [place] [address] Dr. Caitlin Martinez EGFR-AF ANDORRAN >60 Normal >=60 [facility] Comment on above: Performed By: #### D IRCMB, ABID #### [facility] [address] [place] [address] Dr. Caitlin Martinez EGFR-NON AF ANDORRAN >60 Normal >=60 [facility] Comment on above: Performed By: #### D IRCMB, ABID #### [facility] [address] [place] [address] Dr. Caitlin Martinez Glucose [Mass/Vol] 91 mg/dL Normal 74-106 [facility] Comment on above: Performed By: #### D IRCMB, ABID #### [facility] [address] [place] [address] Dr. Caitlin Martinez Potassium [Moles/Vol] 3.1 mmol/L Critically low 3.5-5.1 [facility] Comment on above: Performed By: #### D IRCMB, ABID #### [facility] [address] [place] [address] Dr. Caitlin Martinez Sodium [Moles/Vol] 132 mmol/L Critically low 136-145 [facility] Comment on above: Performed By: #### D IRCMB, ABID #### [facility] [address] [place] [address] Dr. Caitlin Martinez Urea nitrogen [Mass/Vol] 7.0 mg/dL Normal 7.0-18.0 [facility] Comment on above: Performed By: #### D IRCMB, ABID #### [facility] [address] [place] [address] Dr. Caitlin Martinez Urea nitrogen/Creatinine [Mass ratio] 12.7 mg/mg Normal [facility] Comment on above: Performed By: #### D IRCMB, ABID #### [facility] [address] [place] [address] Dr. Caitlin Martinez US PREG ANATOMY SINGLEon [...] by: DAVID BLACKMON Date: 2021-09-28 09:17 Normal [facility] CHEMISTRYOrdered By: SYSTEM SYSTEM on 06-21-2021 [place] [address] m[IU]/mL High 1 - 3 mIU/mL [facility] Remisol XR LUMBAR SPINE 2-3 VIEWS [...] gas pattern is nonobstructive. There is a dprljxmf-wp-wzgol amount of stool burden. IMPRESSION: No malalignment. No acute compression deformity. Ajabmkwb-lw-zylzg amount of stool burden. [employer] Workstation ID: [id number] Dictated by: LUBA GARCÍA on [facility] Mar 05, 2020 4:09:51 PM EDT Transcribed by: KELVIN GUADALUPE on [facility] Mar 05, 2020 4:17:18 PM EDT Finalized by: LUBA GARCÍA on [facility] Mar 05, 2020 7:52:11 PM EDT [facility] Comment on above: Order Comment: Injur y/Trauma or Illness?:Illness/Other How long have you had these symptoms (acute/chronic)?:Chronic Reason for exam?:low back pain History of cancer?:n Surgeries, chemotherapy, or radiation?:n Type of Exam?:Initial Additional signs and symptoms?:fibromyalgia XR Lumbar Spine 2-3 Views (S tandard)on 03-05-2020 No malalignment. No acute compression deformity. Uwqpxbqi-vm-akpky amount of stool burden. [employer] Workstation ID: [id number] [facility] [...] gas pattern is nonobstructive. There is a lbhtqgty-qm-glcpa amount of stool burden. [facility] [...] gas pattern is nonobstructive. There is a qwzyiphk-ro-xjzog amount of stool burden. IMPRESSION: No malalignment. No acute compression deformity. Kdhibtpm-na-xjded amount of stool burden. [employer] Workstation ID: [id number] [facility] CNOVon 10-28-2018 CNOV Office Visit (LOUN ) SANDY GODINEZ ([id number]) 1995 F Date Time Provider Department 10/28/18 [...] Farrah Garcia MD [address] [facility] [phone] Consult requested for an opinion regarding the [...] TIME: 12:44 PM Referring Provider: FARRAH GARCIA [[id number]] Allergies As of Date: 10/28/2018 (No Known [...] by WARREN RODRIGUEZ MD on 10/29/18 Normal [facility] PROGRESSon 10-28-2018 Protein mass conc HNO ID: [id number] Author: Warren Rodriguez Service: ? Author Type: Physician Type: Progress Notes Filed: 10/29/2018 3:03 PM Note Text: VASCULAR SURGERY INITIAL CONSULT SERVICE DATE: 10/28/2018 SERVICE TIME: 12:44 PM PRIMARY CARE PHYSICIAN: Farrah Garcia MD REFERRING PROVIDER: Farrah Garcia MD [address] [facility] [phone] Consult requested for an opinion regarding the [...] October 28, 2018 TIME: 12:44 PM Normal [facility] Vital Signs Date Time Vital Sign Value Performing Clinician Chiquis zaragoza 07-19-2023 09:31-0500 Body mass index (BMI) [Ratio] 26.79 kg/m2 [facility] 07-19-2023 09:31-0500 Body weight 73.03 kg Nom [facility] 07-19-2023 09:31-0500 Diastolic blood pressure 72 mm[Hg] Noms Nurse [facility] 07-19-2023 09:31-0500 Systolic blood pressure 118 mm[Hg] [facility] Nurse [facility] Healthcare Encounters Encounter Date Encounter Type Care Provider Facility Start: 12-23-2023 End: 12-23-2023 ambulatory JOSE MIGUEL JUSTEN Not Available Start: 12-05-2023 End: 12-05-2023 ambulatory JOSE MIGUEL JUSTEN Not Available Start: 11-25-2023 End: 11-25-2023 ambulatory JOSE MIGUEL JUSTEN Not Available Start: 11-12-2023 End: 11-12-2023 ambulatory JOSE MIGUEL JUSTEN Not Available Start: 11-07-2023 End: 11-08-2023 ambulatory JOSE MIGUEL R JUSTEN [facility] Start: 10-15-2023 End: 10-15-2023 ambulatory [...] Not Available Start: 07-08-2023 ambulatory Royer Layne acility:[facility] Start: 07-02-2023 End: 07-02-2023 ambulatory JOSE MIGUEL [...] Recurring Jose Miguel CAMPUZANO [facility] Start: 03-05-2020 End: 03-06-2020 Patient encounter procedure [facility] Start: 03-05-2020 End: 03-05-2020 Subsequent hospital visit by physician Vibha Johnson Work Phone: [facility] Comment on above: Chronic low back [...] encounter procedure 08/19/2023 11:10 AM EST Routine [facility] [address] [place] [id number] Jose Miguel Campuzano, DO [address] [place] [address] [facility] Start: 07-19-2023 End: 07-19-2024 ABO/Rh ABO/Rh Lab Routine Missed menses Expected: 07/19/2023 (Approximate), Expires: 07/19/2024 [facility] Comment on above: Expected: 07/19/2023 (Approximate), Expires: 07/19/2024 Start: 07-19-2023 End: 07-19-2024 Blood type and Indirect antibody screen panel - Blood Type and screen Lab Routine Missed menses Expected: 07/19/2023 (Approximate), Expires: 07/19/2024 [facility] Work Phone: Comment on above: Expected: 07/19/2023 (Approximate), Expires: 07/19/2024 Start: 07-19-2023 End: 07-19-2024 US Pelvis transvaginal US OB transvaginal Imaging Routine Missed menses Expected: 07/19/2023 (Approximate), Expires: 07/19/2024 [facility] Comment on above: Expected: 07/19/2023 (Approximate), Expires: 07/19/2024 Start: 02-16-2020 Influenza vaccinatio n given Sequential Influenza Vaccine (#1) [facility] Start: 2014 Hepatitis C antibody , confirmatory test Hepatitis C Screening [facility] Start: 08-31-2011 HIV screening HIV Screening [facility] Start: 08-31-2007 Vaccination for [place] [...] culture Microbiology Routine Missed menses Ordered: 07/19/2023 [facility] Comment on above: Ordered: 07/19/2023 CBC W Auto Different ial panel - Blood CBC and differential Lab Routine Missed menses Ordered: 07/19/2023 [facility] Comment on above: Ordered: 07/19/2023 Hemoglobin A1c measurement Hemoglobin A1c Lab Routine Missed menses Ordered: 07/19/2023 [facility] Comment on above: Ordered: 07/19/2023 Hepatitis B virus knight rface Ag [Presence] in Serum or Plasma by Immunoassay Hepatitis B surface antigen Lab Routine Missed menses Ordered: 07/19/2023 [facility] Comment on above: Ordered: 07/19/2023 Hepatitis C virus Ab [Presence] in Serum or Plasma by Immunoassay Hepatitis C antibody Lab Routine Missed menses Ordered: 07/19/2023 [facility] Comment on above: Ordered: 07/19/2023 HIV-1/HIV-2 antigen/antibody combination immunoassay HIV-1 and HIV-2 antibodies Lab Routine Missed menses Ordered: 07/19/2023 [facility] Comment on above: Ordered: 07/19/2023 Reagin Ab [Presence] in Serum by RPR RPR Lab Routine Missed menses Ordered: 07/19/2023 [facility] Comment on above: Ordered: 07/19/2023 Rubella antibody, IgG Rubella an tibody, IgG Lab Routine Missed menses Ordered: 07/19/2023 [facility] Comment on above: Ordered: 07/19/2023 Payers Date Payer Category Payer Self-pay 2022 Medicaid [employer] [place] [id number] 2022-Present [address] [place] [address] [id number] 1995 Unknown [id number] 2.16.840.1.404152.3.579.2.903 1995 Unknown [id number] 2.16.840.1.634185.3.579.2.593 1996 Unknown [id number] 2.16.840.1.641300.3.579.2.593 1996 Unknown [id number] 2.16.840.1.177858.3.579.2.593 1996 Unknown [id number] 2.16.840.1.270945.3.579.2.593 1996 Unknown [id number] 2.16.840.1.896553.3.579.2.593 1996 Unknown [id number] 2.16.840.1.147408.3.579.2.593 1996 Unknown [id number] 2.16.840.1.192080.3.579.2.593 1996 Unknown [id number] 2.16.840.1.141967.3.579.2.593 1996 Unknown [id number] 2.16.840.1.686695.3.579.2.593 1996 Unknown [id number] 2.16.840.1.557100.3.579.2.593 1996 Unknown [id number] 2.16.840.1.367307.3.579.2.593 1996 Unknown [id number] 2.16.840.1.665190.3.579.2.593 1996 Unknown [id number] 2.16.840.1.167232.3.579.2.593 1996 Unknown [id number] 2.16.840.1.104946.3.579.2.593 1996 Unknown [id number] 2.16.840.1.496148.3.579.2.593 1996 Unknown [id number] 2.16.840.1.954581.3.579.2.593 1996 Unknown [id number] 2.16.840.1.110374.3.579.2.593 1996 Unknown [id number] 2.16.840.1.314546.3.579.2.593 1996 Unknown [id number] 2.16.840.1.967348.3.579.2.593 1996 Unknown [id number] 2.16.840.1.646772.3.579.2.593 1996 Unknown [id number] 2.16.840.1.012409.3.579.2.593 1996 Unknown [id number] 2.16.840.1.852374.3.579.2.1286 1996 Unknown [id number] 2.16.840.1.373843.3.579.2.1286 1996 Unknown [id number] 2.16.840.1.358499.3.579.2.1259 1996 Unknown [id number] 2.16.840.1.204991.3.579.2.1259 1996 Unknown [id number] 2.16.840.1.441295.3.579.2.1259 1996 Unknown [id number] 2.16.840.1.546899.3.579.2.1259 1996 Unknown [id number] 2.16.840.1.126173.3.579.2.1259 1996 Unknown [id number] 2.16840.1.508945.3.579.2.9 1996 Unknown [id number] 2.16840.1.681890.3.579.2.1259 1996 Unknown [id number] 2.16840.1.346767.3.579.2.9 1996 Unknown [id number] 2.16840.1.630427.3.579.2.1259 1959 Unknown [id number] 1959 Unknown [id number] Unknown COMMERCIAL COMME RCIAL MISCELLANEOUS [id number] Effective for all dates [id number] 1.2.840.839531.1.13.385.2.7.3. 493082.315 Unknown [id number] Unknown [id number] 2..840.1.593215.3.579.2.531 Social History Date Type Detail Facility Tobacco smoking stat [facility] Unknown if ever smoked [facility] Sex Assigned At Not on file [facility] Start: 12-07-2022 Sex Assigned At Female [facility] Start: 12-07-2022 Tobacco smoking status RIIS Never smoked tobacco [facility] Start: 07-19-2023 Alcohol intake Current drinker of alcohol (finding) [facility] Start: 12-07-2022 History of Social function [facility] Start: 12-07-2022 Alcohol Comment 1-2 drinks less than monthly in the past year [facility] Start: 05-31-2023 [facility] Start: 1995 Sex Assigned At Female [facility] Start: 11-29-2022 Gender identity Identifies [...] Procedure Laterality Date DILATION AND CURETTAGE 2018 MI TONSILLECTOMY & ADENOIDECTOMY AGE 13/> 2015 WISDOM [...] sent for nausea to pharmacy. Pt desires [facility] and understands to have it done at 10 weeks along w/her labs. Follow Up: Patient is to have labs drawn at directed and return to office for initial OB appointment with provider. Patient may call office as needed with any concerns or questions. Nurse Visit Completed by: Cori Daniel MA documented in this encounter [facility] Clinical Note 01-16-2022 Note Date & Type [...] authenticated by: Cecelia FOOTE Date: 2022-01-16 21:33 [facility] Clinical Note 01-16-2022 [...] authenticated by: Cecelia FOOTE Date: 2022-01-16 21:33 [facility] Clinical Note 01-15-2022 [...] by: IGOR DIAZ Date: 2022-01-15 10:10 [facility] Evaluation + Plan note Note Date & Type Note Facility Evaluation + Plan note No data available for this section [facility] Evaluation note Note Date & Type Note Facility Evaluation note Diagnosis Missed menses Nausea Nausea alone documented in this encounter [facility] Discharge instructions Note Date & Type Note Facility Hospital Discharge instructions No data available for this section 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 Advance Directives and Livin g Will 03/05/2020 2:18 PM Assessments Diagnosis Chronic low back pain, unspecified back pain laterality, unspecified whether sciatica present Additional Source Comments INFORMATION SOURCE (unrecogn ized section and content) DATE CREATED AUTHOR 11/08/2018 [facility] DATE CREATED AUTHOR AUTHOR'S ORGANIZ ATION 03/21/2020 [facility] DATE CREATED AUTHOR AUTHOR'S ORGANIZ ATION 08/04/2022 [facility] DATE CREATED AUTHOR AUTHOR'S ORGANIZ ATION 09/06/2022 [facility] DATE CREATED AUTHOR AUTHOR'S ORGANIZ ATION 09/17/2023 [facility] DATE CREATED AUTHOR AUTHOR'S ORGANIZ ATION 11/09/2023 [facility] DATE CREATED AUTHOR AUTHOR'S ORGANIZ ATION 12/23/2023 [facility] EPIC Reason for Visit (unrecogniz ed [...] BE BASED ON THE PRIMARY CLINICAL RECORDS. [facility]. provides no warranty or guarantee of the accuracy or completeness of information in this document.
--- NOTE | 2024-01-06 10:57 | US_ITS ---
[address] [address] Patient Name: SANDY GODINEZ MRN: [id number] date: 1995 Sex: F Assigned Patient Location: [facility] Current Patient Location: Accession/Order Number: [id number] Exam Date: 01/06/2024 11:06 Report Date: 01/06/2024 12:45 At the request of: JOSE MIGUEL BOATENG Procedure: US OB BPP w non-stress EXAMINATION: US OB BPP w non-stress HISTORY: CIRCUMVALLATE PLACENTA O43.112 COMPARISON: No relevant comparison available. TECHNIQUE: Ultrasound biophysical profile was performed in the radiology department. non-reactive stress testing was performed by nursing staff in the birthing center. FINDINGS: BREATHING MOVEMENTS: 2 GROSS BODY MOVEMENTS: 2 TONE: 2 QUALITATIVE AMNIOTIC FLUID VOLUME: 2 PRESENTATION: Cephalic HEART RATE: 137 bpm AMNIOTIC FLUID VOLUME: 21.7 cm GESTATIONAL AGE: 33 weeks 3 days US/US OB BPP w non-stress IMPRESSION: Total biophysical profile score: 8/8 Electronically authenticated by: KIRK OATES Date: 01/06/2024 12:45
[2024-01-06 11:40] VITALS: BP 123/68; PULSE 91
--- NOTE | 2024-01-06 11:41 | US_ITS ---
[address] [address] Patient Name: SANDY GODINEZ MRN: [id number] date: 1995 Sex: F Assigned Patient Location: [facility] Current Patient Location: Accession/Order Number: [id number] Exam Date: 01/06/2024 11:41 Report Date: 01/06/2024 12:56 At the request of: JOSE MIGUEL BOATENG Procedure: US OB umbilical artery EXAMINATION: US OB umbilical artery HISTORY: SINGLE VESSEL OF UMBILICAL CORD Q27.0 COMPARISON: No relevant comparison available. TECHNIQUE: Duplex Doppler evaluation of the umbilical arteries. FINDINGS: position: Cephalic presentation, longitudinal lie Amniotic fluid volume: 21.7 cm, normal Largest fluid pocket: 6 cm Heart rate: 137 bpm Proximal umbilical artery PSV/EDV: 159/62 cm/s, resistive index 0.61. Ratio 2.6 Mid umbilical artery PSV/EDV: 86/48 cm/s. Resistive index 0.44. Ratio 1.8 Distal umbilical artery PSV/EDV: 97/51 cm/s, resistive index 0.4. Ratio 1.9 Forefoot identified throughout diastole Clinical age: 33 weeks 3 days US/US OB umbilical artery IMPRESSION: Normal exam. Class 0 Umbilical Artery: Class 0 = Normal umbilical artery blood velocity Class I = increased RI or PI, but still forward flow in diastole Class II = Absent end diastolic flow (AEDF) Class III = Reversal of end diastolic flow (REDF) Resistive Index (RI)<1 Systolic/Diastolic ratio (S:D): An S:D ratio of 2-3 after 34 wks is normal Systolic/Diastolic ratio (S:D): Age 16: 3.01 for the 10th percentile, 4.25 for the 50th percentile, 6.07 for the 90th percentile Age 20: 3.16 for the 10th percentile, 4.04 for the 50th percentile, 5.24 for the 90th percentile Age 24: 2.70 for the 10th percentile, 3.50 for the 50th percentile, 4.75 for the 90th percentile Age 28: 2.41 for the 10th percentile, 3.02 for the 50th percentile, 3.97 for the 90th percentile Age 30: 2.43 for the 10th percentile, 3.04 for the 50th percentile, 3.80 for the 90th percentile Age 32: 2.27 for the 10th percentile, 2.73 for the 50th percentile, 3.57 for the 90th percentile Age 34: 2.08 for the 10th percentile, 2.52 for the 50th percentile, 3.41 for the 90th percentile Age 36: 1.96 for the 10th percentile, 2.35 for the 50th percentile, 3.15 for the 90th percentile Age 38: 1.89 for the 10th percentile, 2.24 for the 50th percentile, 3.10 for the 90th percentile Age 40: 1.88 for the 10th percentile, 2.22 for the 50th percentile, 2.68 for the 90th percentile Age 41: 1.93 for the 10th percentile, 2.21 for the 50th percentile, 2.55 for the 90th percentile Age 42: 1.91 for the 10th percentile, 2.51 for the 50th percentile, 3.21 for the 90th percentile Uteroplacental Artery: Resistive Index (RI): Normal=<0.55 High Resistance=Bilateral notches (after 26 wks) and RI>0.55. Unilateral notches (after 26 wks) and RI>0.65 Systolic/Diastolic ratio (S:D) = 2-3 is normal after 32 weeks. Electronically authenticated by: KIRK OATES Date: 01/06/2024 12:56
== END 2024-01-06 12:03 | disposition home or self-care (01) ==
LOC: US 07:45 → FBC 10:50
PROVIDERS: PCP Nurse Practitioner Family; Visit Provider Obstetrics & Gynecology
DX: O09.893 Supervision of other high risk pregnancies, third trimester (principal); Z3A.33 33 weeks gestation of pregnancy
CPT/HCPCS: 76818; 76820

== ENCOUNTER 2024-01-09 07:18 | Outpatient (OUT) | payer OTHER, SELFPAY ==
--- OUTSIDE RECORDS SUMMARY | 2024-01-09 07:21 | XMS_ITS | CCD ---
Author Organization [facility] Care Team Providers Care Meter Repairer Name Role Phone Farrah Garcia Primary Care Provider [phone] VIBHA JOHNSON Attending Unavailable VIBHA JOHNSON Referring [...] Attending Unavailable KARASIMilka, DR MIMS Consulting Unavailable YAMILEX, DR MIMS [...] MIGUEL Attending Unavailable MICHAEL CHAN Attending Unavailable Allergies Allergy Classification Reported Allergen(s) Allergy Type Date of Onset Reaction(s) Facility Unclassified (1 source) ADHESIVE TAPE-SILICONES; 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: [ADHESIVE TAPE-SILICONES] Propensity to adverse reactions to drug (disorder) 4 [facility] Repository (1 source) [facility] Drug Allergy 9 [facility] Repository (2 sources) Wound Dressing Adhesive [...] 02-15-2022 Episodic Other aftercare (1 source) Other [facility] (current) 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; 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: [OTH HALFWAY CURRENT DRUG THERAPY] Onset: 02-05-2022 Episodic Other [...] AUTO DIFFon BASOPHILS ABSOLUTE AUTO 0.1 [facility] Basophils/100 WBC (Bld) 0.7 % 0.2 - 2.0 % [facility] Eosinophils/100 WBC (Bld) 2.6 % 0.9 - 7.0 % [facility] Erythrocyte distribution width (RBC) [Ratio] 13.4 % 11.0 - 15.0 % [facility] Hematocrit (Bld) [Volume fraction] 39.0 % 36.0 - 48.0 % [facility] Hemoglobin (Bld) [Mass/Vol] 12.8 g/dL 12.0 - 16.0 g/dL [facility] IMMATURE GRANULOCYTES ABS AUTO 0.01 [facility] Immature granulocytes/100 WBC (Bld) 0.1 % 0.0 - 0.5 % [facility] LYMPHOCYTES ABSOLUTE AUTO 2.2 [facility] Lymphocytes/100 WBC (Bld) 26.1 % 20.5 - 60.0 % [facility] MCH (RBC) [Entitic mass] 28.6 pg 26.7 - 34.0 pg [facility] MCHC (RBC) [Mass/Vol] 32.8 g/dL 29.9 - 35.2 g/dL [facility] MCV (RBC) [Entitic vol] 87.2 fL 81.0 - 99.0 fL [facility] MONOCYTES ABSOLUTE AUTO 0.5 [facility] Monocytes/100 WBC (Bld) 5.7 % 1.7 - 12.0 % [facility] NEUTROPHILS ABSOLUTE AUTO 5.5 [facility] Neutrophils/100 WBC (Bld) 64.8 % 43.0 - 75.0 % [facility] Platelet mean volume (Bld) [Entitic vol] 10.1 fL 9.5 - 13.5 fL [facility] TBH EO # 0.2 [facility] PLT 340 [facility] RBC 4.47 [facility] WBC 8.4 [facility] HCG ( test) Ql (U)o n 07-19-2023 Interpretation and review of laboratory results Abnormal [facility] Preg Test, Ur Positive [facility] Urinalysis macro (dipstick) panel (U)on 07-19-2023 Bilirubin, UA Negative Negative - 4(70) +++ mg/dL [facility] Blood, UA Positive Negative - 50 Anselmo/mcL [facility] Comment on above: moderate Clarity, UA Clear [facility] Color, UA Kittson [facility] Glucose, UA Negative Negative - 1999(110) ++++ mg/dL [facility] Interpretation and review of laboratory results Abnormal [facility] Ketones, UA Positive Negative - 160(16) ++++ mg/dL [facility] Comment on above: trace Leukocytes, UA Positive Negative - 500+++ Monik/mcL [facility] Comment on above: small Nitrite, UA Negative Negative - Positive [facility] pH, UA 6.0 5 - 9 [facility] Protein, UA Positive Negative - 1999(20) ++++ mg/dL [facility] Comment on above: 30 Spec Grav, UA 1.030 1 - 1.03 [facility] Urobilinogen, UA 1.0 0.2 - 12 mg/dL [facility] In office Testingon 09-07-19 23 In office Testing [id number] 1.00CD:127 Normal [facility] CBC AUTO DIFFon 07-30-2022 BASO # 0.1 103/ul Normal 0.0-0.1 [facility] Comment on above: Performed By: #### U RCX #### [facility] [address] [place] [address] Dr. Caitlin Martinez Basophils/100 WBC (Bld) 1.1 % Normal 0.2-2.0 [facility] Comment on above: Performed By: #### U RCX #### [facility] [address] [place] [address] Dr. Caitlin Martinez EO # 0.3 103/ul Normal 0.0-0.7 [facility] Comment on above: Performed By: #### U RCX #### [facility] [address] [place] [address] Dr. Caitlin Martinez Eosinophils/100 WBC (Bld) 4.7 % Normal 0.9-7.0 [facility] Comment on above: Performed By: #### U RCX #### [facility] [address] [place] [address] Dr. Caitlin Martinez Erythrocyte distribution width (RBC) [Ratio] 14.7 % Normal 11.0-15.0 [facility] Comment on above: Performed By: #### U RCX #### [facility] [address] [place] [address] Dr. Caitlin Martinez Hematocrit (Bld) [Volume fraction] 39.3 % Normal 36.0-48.0 [facility] Comment on above: Performed By: #### U RCX #### [facility] [address] [place] [address] Dr. Caitlin Martinez Hemoglobin (Bld) [Mass/Vol] 12.7 g/dL Normal 12.0-16.0 [facility] Comment on above: Performed By: #### U RCX #### [facility] [address] [place] [address] Dr. Caitlin Martinez IG # 0.02 10e3/ul Normal 0.00-0.03 [facility] Comment on above: Performed By: #### U RCX #### [facility] [address] [place] [address] Dr. Caitlin Martinez IG % 0.3 % Normal 0.0-0.5 [facility] Comment on above: Performed By: #### U RCX #### [facility] [address] [place] [address] Dr. Caitlin Martinez LYMPH # 2.5 103/ul Normal 1.2-3.8 [facility] Comment on above: Performed By: #### U RCX #### [facility] [address] [place] [address] Dr. Caitlin Martinez Lymphocytes/100 WBC (Bld) 34.5 % Normal 20.5-60.0 [facility] Comment on above: Performed By: #### U RCX #### [facility] [address] [place] [address] Dr. Caitlin Martinez MANUAL DIFF REQ NO Normal [facility] Comment on above: Performed By: #### U RCX #### [facility] [address] [place] [address] Dr. Caitlin Martinez MCH (RBC) [Entitic mass] 27.3 pg Normal 26.7-34.0 [facility] Comment on above: Performed By: #### U RCX #### [facility] [address] [place] [address] Dr. Caitlin Martinez MCHC (RBC) [Mass/Vol] 32.3 g/dL Normal 29.9-35.2 [facility] Comment on above: Performed By: #### U RCX #### [facility] [address] [place] [address] Dr. Caitlin Martinez MCV (RBC) [Entitic vol] 84.5 fL Normal 81.0-99.0 [facility] Comment on above: Performed By: #### U RCX #### [facility] [address] [place] [address] Dr. Caitlin Martinez MONO # 0.5 103/ul Normal 0.3-0.8 [facility] Comment on above: Performed By: #### U RCX #### [facility] [address] [place] [address] Dr. Caitlin Martinez Monocytes/100 WBC (Bld) 7.3 % Normal 1.7-12.0 [facility] Comment on above: Performed By: #### U RCX #### [facility] [address] [place] [address] Dr. Caitlin Martinez NEUT # 3.8 103/ul Normal 1.4-6.5 [facility] Comment on above: Performed By: #### U RCX #### [facility] [address] [place] [address] Dr. Caitlin Martinez Neutrophils/100 WBC (Bld) 52.1 % Normal 43.0-75.0 [facility] Comment on above: Performed By: #### U RCX #### [facility] [address] [place] [address] Dr. Caitlin Martinez Platelet mean volume (Bld) [Entitic vol] 9.0 fL Critically low 9.5-13.5 [facility] Comment on above: Performed By: #### U RCX #### [facility] [address] [place] [address] Dr. Caitlin Martinez PLT 368 103/ul Normal 150-450 [facility] Comment on above: Performed By: #### U RCX #### [facility] [address] [place] [address] Dr. Caitiln Martinez RBC 4.65 106/ul Normal 4.20-5.40 [facility] Comment on above: Performed By: #### U RCX #### [facility] [address] [place] [address] Dr. Caitlin Martinez WBC 7.2 103/ul Normal 4.0-11.0 [facility] Comment on above: Performed By: #### U RCX #### [facility] [address] [place] [address] Dr. Caitlin Martinez IRONon 07-30-2022 Iron [Mass/Vol] 43.0 ug/dL Critically low 50.0-170.0 [facility] Comment on above: Performed By: #### U RCX #### [facility] [address] [place] [address] Dr. Caitlin Martinez PAP ACOG PANEL 2: 21 to 30on 07-30-2022 . . Normal [facility] Comment on above: Performed By: #### U RCX #### [facility] [address] [place] [address] Dr. Caitlin Martinez Age Gdln ACOG Testing - [facility] Comment on above: Performed By: #### U RCX #### [facility] [address] [place] [address] Dr. Caitlin Martinez DIAGNOSIS: Comment [facility] Comment on above: Result Comment: NEGA TIVE FOR INTRAEPITHELIAL LESION OR MALIGNANCY. Performed By: #### U RCX #### [facility] [address] [place] [address] Dr. Caitlin Martinez Methodology: Comment [facility] Comment on above: Result Comment: This liquid based ThinPrep(R) pap test was screened with the use of an image guided system. Performed By: #### U RCX #### [facility] [address] [place] [address] Dr. Caitlin Martinez Note: Comment [facility] Comment on above: Result Comment: [...] By: #### U RCX #### [facility] [address] [place] [address] Dr. Caitlin Martinez Performed by: Comment [facility] Comment on above: Result Comment: Bhavna Cormier, [employer]othermal Powerplant Mechanic (ASCP) Performed By: #### U RCX #### [facility] [address] [place] [address] Dr. Caitlin Martinez Reflex Criteria: Comment [facility] Comment on above: Result Comment: The HPV DNA reflex criteria were not met with this specimen result therefore, no HPV testing was performed. . Performed By: #### U RCX #### [facility] [address] [place] [address] Dr. Caitlin Martinez Specimen adequacy: Comment Normal [facility] Comment on above: Result Comment: Sati sfactory for evaluation. Endocervical and/or squamous metaplastic cells (endocervical component) are present. Performed By: #### U RCX #### [facility] [address] [place] [address] Dr. Caitlin Martinez INSULINon 04-19-2022 Insulin 9.1 uIU/mL Normal 2.6-24.9 [facility] Comment on above: Performed By: #### I HORACIO #### [facility] [address] [place] [address] Dr. Caitlin Martinez CBC AUTO DIFFon 04-18-2022 BASO # 0.1 103/ul Normal 0.0-0.1 [facility] Comment on above: Performed By: #### U RCX #### [facility] [address] [place] [address] Dr. Caitlin Martinez Basophils/100 WBC (Bld) 1.0 % Normal 0.2-2.0 [facility] Comment on above: Performed By: #### U RCX #### [facility] [address] [place] [address] Dr. Caitlin Martinez EO # 0.3 103/ul Normal 0.0-0.7 [facility] Comment on above: Performed By: #### U RCX #### [facility] [address] [place] [address] Dr. Caitlin Martinez Eosinophils/100 WBC (Bld) 4.1 % Normal 0.9-7.0 [facility] Comment on above: Performed By: #### U RCX #### [facility] [address] [place] [address] Dr. Caitlin Martinez Erythrocyte distribution width (RBC) [Ratio] 16.0 % Critically high 11.0-15.0 [facility] Comment on above: Performed By: #### U RCX #### [facility] [address] [address] [address] Caitlin Martinez Hematocrit (Bld) [Volume fraction] 35.7 % Critically low 36.0-48.0 [facility] Comment on above: Performed By: #### U RCX #### [facility] [address] [place] [address] Dr. Caitlin Martinez Hemoglobin (Bld) [Mass/Vol] 10.9 g/dL Critically low 12.0-16.0 [facility] Comment on above: Performed By: #### U RCX #### [facility] [address] [address] [address] Caitlin Martinez IG # 0.07 10e3/ul Critically high 0.00-0.03 [facility] Comment on above: Performed By: #### U RCX #### [facility] [address] [place] [address] Dr. Caitlin Martinez IG % 1.0 % Critically high 0.0-0.5 [facility] Comment on above: Performed By: #### U RCX #### [facility] [address] [address] [address] Caitlin Martinez LYMPH # 2.3 103/ul Normal 1.2-3.8 [facility] Comment on above: Performed By: #### U RCX #### [facility] [address] [place] [address] Dr. Caitlin Martinez Lymphocytes/100 WBC (Bld) 31.4 % Normal 20.5-60.0 [facility] Comment on above: Performed By: #### U RCX #### [facility] [address] [place] [address] Dr. Caitlin Martinez MANUAL DIFF REQ NO Normal [facility] Comment on above: Performed By: #### U RCX #### [facility] [address] [place] [address] Dr. Caitlin Martinez MCH (RBC) [Entitic mass] 24.8 pg Critically low 26.7-34.0 [facility] Comment on above: Performed By: #### U RCX #### [facility] [address] [address] [address] Caitlin Martinez MCHC (RBC) [Mass/Vol] 30.5 g/dL Normal 29.9-35.2 [facility] Comment on above: Performed By: #### U RCX #### [facility] [address] [address] [address] Caitlin Martinez MCV (RBC) [Entitic vol] 81.1 fL Normal 81.0-99.0 [facility] Comment on above: Performed By: #### U RCX #### [facility] [address] [place] [address] Dr. Caitlin Martinez MONO # 0.5 103/ul Normal 0.3-0.8 [facility] Comment on above: Performed By: #### U RCX #### [facility] [address] [place] [address] Dr. Caitlin Martinez Monocytes/100 WBC (Bld) 6.6 % Normal 1.7-12.0 [facility] Comment on above: Performed By: #### U RCX #### [facility] [address] [place] [address] Dr. Caitlin Martinez NEUT # 4.1 103/ul Normal 1.4-6.5 [facility] Comment on above: Performed By: #### U RCX #### [facility] [address] [place] [address] Dr. Caitlin Martinez Neutrophils/100 WBC (Bld) 55.9 % Normal 43.0-75.0 [facility] Comment on above: Performed By: #### U RCX #### [facility] [address] [place] [address] Dr. Caitlin Martinez Platelet mean volume (Bld) [Entitic vol] 9.4 fL Critically low 9.5-13.5 [facility] Comment on above: Performed By: #### U RCX #### [facility] [address] [place] [address] Dr. Caitlin Martinez PLT 369 103/ul Normal 150-450 [facility] Comment on above: Performed By: #### U RCX #### [facility] [address] [address] [address] Caitlin Martinez RBC 4.40 106/ul Normal 4.20-5.40 [facility] Comment on above: Performed By: #### U RCX #### [facility] [address] [address] [address] Caitlin Martinez WBC 7.3 103/ul Normal 4.0-11.0 [facility] Comment on above: Performed By: #### U RCX #### [facility] [address] [address] [address] Caitlin Martinez FREE THYROXINE INDEX T7on FTI 2.20 Normal 1.30-4.50 [facility] Comment on above: Performed By: #### I HORACIO #### [facility] [address] [place] [address] Dr. Caitlin Martinez T3U 29.0 % Critically low 30.0-39.0 [facility] Comment on above: Performed By: #### I HORACIO #### [facility] [address] [address] [address] Caitlin Martinez T4 [Mass/Vol] 7.60 ug/dL Normal 4.80-13.90 [facility] Comment on above: Performed By: #### I HORACIO #### [facility] [address] [place] [address] Dr. Caitlin Martinez GLYCOHEMOGLOBIN A1Con 2021 ADA RECOMMENDATION SEE BELOW Normal [facility] Comment on above: Result Comment: ADA RECOMMENDED LIMIT 4.0 - 6.0 ADA THERAPEUTIC TARGET < 7.0 ACTION SUGGESTED > 7.0 Performed By: #### U RCX #### [facility] [address] [address] [address] Caitlin Martinez Glucose [Mass/Vol] 97 mg/dL Normal [facility] Comment on above: Performed By: #### U RCX #### [facility] [address] [address] [address] Caitlin Martinez HbA1c (Bld) [Mass fraction] 5.0 % Normal 4.5-6.2 [facility] Comment on above: Performed By: #### U RCX #### [facility] [address] [address] [address] Caitlin Martinez IRONon 04-18-2022 Iron [Mass/Vol] 35.0 ug/dL Critically low 50.0-170.0 [facility] Comment on above: Performed By: #### I HORACIO #### [facility] [address] [address] [address] Caitlin Martinez LIPID PROFILEon 04-18-2022 CHOL-HDL RATIO NORM SEE BELOW Normal [facility] Comment on above: Result Comment: 3.3 - 4.4 LOW RISK 4.4 - 7.1 AVERAGE RISK 7.1 - 11.0 MODERATE RISK >11.0 HIGH RISK Performed By: #### I HORACIO #### [facility] [address] [place] [address] Dr. Caitlin Martinez Cholesterol [Mass/Vol] 221 mg/dL Critically high <=200 [facility] Comment on above: Performed By: #### I HORACIO #### [facility] [address] [place] [address] Dr. Caitlin Martinez Cholesterol in HDL [Mass/Vol] 67 mg/dL Critically high 40-60 [facility] Comment on above: Performed By: #### I HORACIO #### [facility] [address] [place] [address] Dr. Caitlin Martinez Cholesterol in LDL [Mass/Vol] 142.4 mg/dL Normal [facility] Comment on above: Performed By: #### I HORACIO #### [facility] [address] [place] [address] Dr. Caitlin Martinez Cholesterol.total/Cho lesterol in HDL [Mass ratio] 3.3 {ratio} Normal [facility] Comment on above: Performed By: #### I HORACIO #### [facility] [address] [place] [address] Dr. Caitlin Martinez HDL NORMAL > or = 60 mg/dl - LO W CARDIOVASCULAR RISK <40 mg/dl - HIGH CARDIOVASCULAR RISK Normal [facility] Comment on above: Performed By: #### I HORACIO #### [facility] [address] [address] [address] Caitlin Martinez LDL CALC NORMAL SEE BELOW Normal [facility] Comment on above: Result Comment: <100 mg/dl OPTIMAL 100 - 129 mg/dl NEAR OR ABOVE OPTIMAL 130 - 159 mg/dl BORDERLINE HIGH 160 - 189 mg/dl HIGH >190 mg/dl VERY HIGH Performed By: #### I HORACIO #### [facility] [address] [address] [address] Caitlin Martinez Triglyceride [Mass/Vol] 58 mg/dL Normal <=150 [facility] Comment on above: Performed By: #### I HORACIO #### [facility] [address] [address] [address] Caitlin Martinez VLDL CALC 11.6 mg/dL Normal [facility] Comment on above: Performed By: #### I HORACIO #### [facility] [address] [place] [address] Dr. Caitlin Martinez PROF 14(COMP METB)on 022 Albumin [Mass/Vol] 3.8 g/dL Normal 3.4-5.0 [facility] Comment on above: Performed By: #### I HORACIO #### [facility] [address] [place] [address] Dr. Caitlin Martinez Albumin/Globulin [Mass ratio] 1.1 {ratio} Normal [facility] Comment on above: Performed By: #### I HORACIO #### [facility] [address] [place] [address] Dr. Caitlin Martinez ALP [Catalytic activity/Vol] 132 U/L Critically high 46-116 [facility] Comment on above: Performed By: #### I HORACIO #### [facility] [address] [address] [address] Caitlin aMrtinez ALT [Catalytic activity/Vol] 55 U/L Normal 14-59 [facility] Comment on above: Performed By: #### I HORACIO #### [facility] [address] [place] [address] Dr. Caitlin Martinez Anion gap [Moles/Vol] 12.6 mmol/L Normal [facility] Comment on above: Performed By: #### I HORACIO #### [facility] [address] [address] [address] Caitlin Martinez AST [Catalytic activity/Vol] 27 U/L Normal 15-37 [facility] Comment on above: Performed By: #### I HORACIO #### [facility] [address] [address] [address] Caitlin Martinez Bilirubin [Mass/Vol] 0.6 mg/dL Normal 0.2-1.0 [facility] Comment on above: Performed By: #### I HORACIO #### [facility] [address] [address] [address] Caitlin Martinez Calcium [Mass/Vol] 9.1 mg/dL Normal 8.5-10.1 [facility] Comment on above: Performed By: #### I HORACIO #### [facility] [address] [place] [address] Dr. Caitlin Martinez Chloride [Moles/Vol] 106 mmol/L Normal 98-107 [facility] Comment on above: Performed By: #### I HORACIO #### [facility] [address] [address] [address] Caitlin Martinez CO2 [Moles/Vol] 26.5 mmol/L Normal 21.0-32.0 [facility] Comment on above: Performed By: #### I HORACIO #### [facility] [address] [place] [address] Dr. Caitlin Martinez Creatinine [Mass/Vol] 0.63 mg/dL Normal 0.55-1.02 [facility] Comment on above: Performed By: #### I HORACIO #### [facility] [address] [address] [address] Caitlin Martinez EGFR-AF [place] >60 Normal >=60 [facility] Comment on above: Performed By: #### I HORACIO #### [facility] [address] [address] [address] Caitlin Martinez EGFR-NON AF [place] >60 Normal >=60 [facility] Comment on above: Performed By: #### I HORACIO #### [facility] [address] [address] [address] Caitlin Martinez Globulin (S) [Mass/Vol] 3.6 g/dL Normal [facility] Comment on above: Performed By: #### I HORACIO #### [facility] [address] [address] [address] Caitlin Martinez Glucose [Mass/Vol] 98 mg/dL Normal 74-106 [facility] Comment on above: Performed By: #### I HORACIO #### [facility] [address] [address] [address] Caitlin Martinez Potassium [Moles/Vol] 4.1 mmol/L Normal 3.5-5.1 [facility] Comment on above: Performed By: #### I HORACIO #### [facility] [address] [place] [address] Dr. Caitlin Martinez Protein [Mass/Vol] 7.4 g/dL Normal 6.4-8.2 [facility] Comment on above: Performed By: #### I HORACIO #### [facility] [address] [place] [address] Dr. Caitlin Martinez Sodium [Moles/Vol] 141 mmol/L Normal 136-145 [facility] Comment on above: Performed By: #### I HORACIO #### [facility] [address] [place] [address] Dr. Caitlin Martinez Urea nitrogen [Mass/Vol] 9.0 mg/dL Normal 7.0-18.0 [facility] Comment on above: Performed By: #### I HORACIO #### [facility] [address] [place] [address] Dr. Caitlin Martinez Urea nitrogen/Creatinine [Mass ratio] 14.3 mg/mg Normal [facility] Comment on above: Performed By: #### I HORACIO #### [facility] [address] [place] [address] Dr. Caitlin Martinez TSHon 04-18-2022 TSH 1.349 uIU/mL Normal 0.358-3.740 [facility] Comment on above: Performed By: #### I HORACIO #### [facility] [address] [place] [address] Dr. Caitlin Martinez ANTIBODY ID PANELon 02-15-20 22 ANTIBODY ID PANEL Antibody ID Anti-D Blood Bank Notes most likely due to Rhogam given on 12/01/21 Normal [facility] Comment on above: Performed By: #### D IRCMB, ABID #### [facility] [address] [place] [address] Dr. Caitlin Martinez CTA CHEST WO W [...] by: GAGANDEEP WHEELER Date: 2022-02-10 22:55 Normal [facility] CBC AUTO DIFFon 02-10-2022 BASO # 0.1 103/ul Normal 0.0-0.1 [facility] Comment on above: Performed By: #### C BC #### [facility] [address] [place] [address] Dr. Caitlin Martinez Basophils/100 WBC (Bld) 0.4 % Normal 0.2-2.0 [facility] Comment on above: Performed By: #### C BC #### [facility] [address] [place] [address] Dr. Caitlin Martinez EO # 0.5 103/ul Normal 0.0-0.7 [facility] Comment on above: Performed By: #### C BC #### [facility] [address] [place] [address] Dr. Caitlin Martinez Eosinophils/100 WBC (Bld) 4.2 % Normal 0.9-7.0 [facility] Comment on above: Performed By: #### C BC #### [facility] [address] [place] [address] Dr. Caitlin Martinez Erythrocyte distribution width (RBC) [Ratio] 14.7 % Normal 11.0-15.0 [facility] Comment on above: Performed By: #### C BC #### [facility] [address] [place] [address] Dr. Caitlin Martinez Hematocrit (Bld) [Volume fraction] 31.1 % Critically low 36.0-48.0 [facility] Comment on above: Performed By: #### C BC #### [facility] [address] [place] [address] Dr. Caitlin Martinez Hemoglobin (Bld) [Mass/Vol] 9.6 g/dL Critically low 12.0-16.0 [facility] Comment on above: Performed By: #### C BC #### [facility] [address] [place] [address] Dr. Caitlin Martinez IG # 0.28 10e3/ul Critically high 0.00-0.03 [facility] Comment on above: Performed By: #### C BC #### [facility] [address] [place] [address] Dr. Caitlin Martinez IG % 2.3 % Critically high 0.0-0.5 [facility] Comment on above: Performed By: #### C BC #### [facility] [address] [place] [address] Dr. Caitlin Martinez LYMPH # 3.3 103/ul Normal 1.2-3.8 [facility] Comment on above: Performed By: #### C BC #### [facility] [address] [place] [address] Dr. Caitlin Martinez Lymphocytes/100 WBC (Bld) 26.9 % Normal 20.5-60.0 [facility] Comment on above: Performed By: #### C BC #### [facility] [address] [place] [address] Dr. Caitlin Martinez MANUAL DIFF REQ NO Normal [facility] Comment on above: Performed By: #### C BC #### [facility] [address] [place] [address] Dr. Caitlin Martinez MCH (RBC) [Entitic mass] 26.2 pg Critically low 26.7-34.0 [facility] Comment on above: Performed By: #### C BC #### [facility] [address] [place] [address] Dr. Caitlin Martinez MCHC (RBC) [Mass/Vol] 30.9 g/dL Normal 29.9-35.2 [facility] Comment on above: Performed By: #### C BC #### [facility] [address] [place] [address] Dr. Caitlin Martinez MCV (RBC) [Entitic vol] 84.7 fL Normal 81.0-99.0 [facility] Comment on above: Performed By: #### C BC #### [facility] [address] [place] [address] Dr. Caitlin Martinez MONO # 1.1 103/ul Critically high 0.3-0.8 [facility] Comment on above: Performed By: #### C BC #### [facility] [address] [place] [address] Dr. Caitlin Martinez Monocytes/100 WBC (Bld) 8.7 % Normal 1.7-12.0 [facility] Comment on above: Performed By: #### C BC #### [facility] [address] [place] [address] Dr. Caitlin Martinez NEUT # 7.0 103/ul Critically high 1.4-6.5 [facility] Comment on above: Performed By: #### C BC #### [facility] [address] [place] [address] Dr. Caitlin Martinez Neutrophils/100 WBC (Bld) 57.5 % Normal 43.0-75.0 [facility] Comment on above: Performed By: #### C BC #### [facility] [address] [place] [address] Dr. Caitlin Martinez Platelet mean volume (Bld) [Entitic vol] 9.1 fL Critically low 9.5-13.5 [facility] Comment on above: Performed By: #### C BC #### [facility] [address] [place] [address] Dr. Caitlin Martinez PLT 437 103/ul Normal 150-450 [facility] Comment on above: Performed By: #### C BC #### [facility] [address] [place] [address] Dr. Caitlin Martinez RBC 3.67 106/ul Critically low 4.20-5.40 [facility] Comment on above: Performed By: #### C BC #### [facility] [address] [place] [address] Dr. Caitlin Martinez WBC 12.3 103/ul Critically high 4.0-11.0 [facility] Comment on above: Performed By: #### C BC #### [facility] [address] [place] [address] Dr. Caitlin Martinez Covid-19 PCR ([facility])on 01-16 SARS-CoV-2 (COVID-19) RNA JONATAN+probe Ql (Unsp spec) Not detected Normal NOT DETECTED [facility] Comment on above: Result Comment: When [...] for this test is supported by the Appeals Coordinator of Health and Human Service's declaration [...] By: #### C VDTBH #### [facility] [address] [place] [address] Dr. Caitlin Martinez PROF 14(COMP METB)on 022 Albumin [Mass/Vol] 2.1 g/dL Critically low 3.4-5.0 [facility] Comment on above: Performed By: #### U RCX #### [facility] [address] [place] [address] Dr. Caitlin Martinez Albumin/Globulin [Mass ratio] 0.5 {ratio} Normal [facility] Comment on above: Performed By: #### U RCX #### [facility] [address] [place] [address] Dr. Caitlin Martinez ALP [Catalytic activity/Vol] 202 U/L Critically high 46-116 [facility] Comment on above: Performed By: #### U RCX #### [facility] [address] [place] [address] Dr. Caitlin Martinez ALT [Catalytic activity/Vol] 20 U/L Normal 14-59 [facility] Comment on above: Performed By: #### U RCX #### [facility] [address] [place] [address] Dr. Caitlin Martinez Anion gap [Moles/Vol] 11.6 mmol/L Normal [facility] Comment on above: Performed By: #### U RCX #### [facility] [address] [place] [address] Dr. Caitlin Martinez AST [Catalytic activity/Vol] 17 U/L Normal 15-37 [facility] Comment on above: Performed By: #### U RCX #### [facility] [address] [place] [address] Dr. Caitlin Martinez Bilirubin [Mass/Vol] 0.3 mg/dL Normal 0.2-1.0 [facility] Comment on above: Performed By: #### U RCX #### [facility] [address] [place] [address] Dr. Caitlin Martinez Calcium [Mass/Vol] 9.2 mg/dL Normal 8.5-10.1 [facility] Comment on above: Performed By: #### U RCX #### [facility] [address] [address] [address] Caitlin Martinez Chloride [Moles/Vol] 104 mmol/L Normal 98-107 [facility] Comment on above: Performed By: #### U RCX #### [facility] [address] [address] [address] Caitlin Martinez CO2 [Moles/Vol] 26.9 mmol/L Normal 21.0-32.0 [facility] Comment on above: Performed By: #### U RCX #### [facility] [address] [address] [address] Caitlin Martinez Creatinine [Mass/Vol] 0.56 mg/dL Normal 0.55-1.02 [facility] Comment on above: Performed By: #### U RCX #### [facility] [address] [place] [address] Dr. Caitlin Martinez EGFR-AF [place] >60 Normal >=60 [facility] Comment on above: Performed By: #### U RCX #### [facility] [address] [address] [address] Caitlin Martinez EGFR-NON AF [place] >60 Normal >=60 [facility] Comment on above: Performed By: #### U RCX #### [facility] [address] [place] [address] Dr. Caitlin Martinez Globulin (S) [Mass/Vol] 4.4 g/dL Normal [facility] Comment on above: Performed By: #### U RCX #### [facility] [address] [address] [address] Caitlin Martinez Glucose [Mass/Vol] 108 mg/dL Critically high 74-106 [facility] Comment on above: Performed By: #### U RCX #### [facility] [address] [address] [address] Caitlin Martinez Potassium [Moles/Vol] 3.5 mmol/L Normal 3.5-5.1 [facility] Comment on above: Performed By: #### U RCX #### [facility] [address] [place] [address] Dr. Caitlin Martinez Protein [Mass/Vol] 6.5 g/dL Normal 6.4-8.2 [facility] Comment on above: Performed By: #### U RCX #### [facility] [address] [address] [address] Caitlin Martinez Sodium [Moles/Vol] 139 mmol/L Normal 136-145 [facility] Comment on above: Performed By: #### U RCX #### [facility] [address] [address] [address] Caitlin Martinez Urea nitrogen [Mass/Vol] 7.0 mg/dL Normal 7.0-18.0 [facility] Comment on above: Performed By: #### U RCX #### [facility] [address] [place] [address] Dr. Caitlin Martinez Urea nitrogen/Creatinine [Mass ratio] 12.5 mg/mg Normal [facility] Comment on above: Performed By: #### U RCX #### [facility] [address] [place] [address] Dr. Caitlin Martinez TROPONIN, HIGH SENSITIVITYon 02-10-2022 HSTROP <4.0 Normal 4.0-51.3 [facility] Comment on above: Result Comment: CUT- OFF POINTS HAVE BEEN ESTABLISHED BASED ON THE FOURTH UNIVERSAL DEFINITIONS OF MYOCARDIAL INFARCTION. THE UPPER REFERENCE LIMIT (URL) OF TROPONIN, DEFINED THE 99TH PERCENTILE OF cTnI DISTRIBUTION IN A REFERENCE POPULATION, HAS BEEN CONFIRMED THE DECISION THRESHOLD FOR WA DIAGNOSIS. Performed By: #### U RCX #### [facility] [address] [place] [address] Dr. Caitlin Martinez CBC AUTO DIFFon 02-09-2022 BASO # 0.1 103/ul Normal 0.0-0.1 [facility] Comment on above: Performed By: #### U RCX #### [facility] [address] [place] [address] Dr. Caitlin Martinez Basophils/100 WBC (Bld) 0.6 % Normal 0.2-2.0 [facility] Comment on above: Performed By: #### U RCX #### [facility] [address] [address] [address] Caitlin Martinez EO # 0.3 103/ul Normal 0.0-0.7 [facility] Comment on above: Performed By: #### U RCX #### [facility] [address] [place] [address] Dr. Caitlin Martinez Eosinophils/100 WBC (Bld) 2.3 % Normal 0.9-7.0 [facility] Comment on above: Performed By: #### U RCX #### [facility] [address] [place] [address] Dr. Caitlin Martinez Erythrocyte distribution width (RBC) [Ratio] 14.6 % Normal 11.0-15.0 [facility] Comment on above: Performed By: #### U RCX #### [facility] [address] [place] [address] Dr. Caitlin Martinez Hematocrit (Bld) [Volume fraction] 28.8 % Critically low 36.0-48.0 [facility] Comment on above: Performed By: #### U RCX #### [facility] [address] [place] [address] Dr. Caitlin Martinez Hemoglobin (Bld) [Mass/Vol] 9.0 g/dL Critically low 12.0-16.0 [facility] Comment on above: Performed By: #### U RCX #### [facility] [address] [place] [address] Dr. Caitlin Martinez IG # 0.20 10e3/ul Critically high 0.00-0.03 [facility] Comment on above: Performed By: #### U RCX #### [facility] [address] [place] [address] Dr. Caitlin Martinez IG % 1.5 % Critically high 0.0-0.5 [facility] Comment on above: Performed By: #### U RCX #### [facility] [address] [place] [address] Dr. Caitlin Martinez LYMPH # 3.0 103/ul Normal 1.2-3.8 [facility] Comment on above: Performed By: #### U RCX #### [facility] [address] [address] [address] Caitlin Martinez Lymphocytes/100 WBC (Bld) 22.2 % Normal 20.5-60.0 [facility] Comment on above: Performed By: #### U RCX #### [facility] [address] [address] [address] Caitlin Martinez MANUAL DIFF REQ NO Normal [facility] Comment on above: Performed By: #### U RCX #### [facility] [address] [address] [address] Caitlin Martinez MCH (RBC) [Entitic mass] 26.2 pg Critically low 26.7-34.0 [facility] Comment on above: Performed By: #### U RCX #### [facility] [address] [place] [address] Dr. Caitlin Martinez MCHC (RBC) [Mass/Vol] 31.3 g/dL Normal 29.9-35.2 [facility] Comment on above: Performed By: #### U RCX #### [facility] [address] [place] [address] Dr. Caitlin Martinez MCV (RBC) [Entitic vol] 83.7 fL Normal 81.0-99.0 [facility] Comment on above: Performed By: #### U RCX #### [facility] [address] [place] [address] Dr. Caitlin Martinez MONO # 1.3 103/ul Critically high 0.3-0.8 [facility] Comment on above: Performed By: #### U RCX #### [facility] [address] [place] [address] Dr. Caitlin Martinez Monocytes/100 WBC (Bld) 9.8 % Normal 1.7-12.0 [facility] Comment on above: Performed By: #### U RCX #### [facility] [address] [place] [address] Dr. Caitlin Martinez NEUT # 8.5 103/ul Critically high 1.4-6.5 [facility] Comment on above: Performed By: #### U RCX #### [facility] [address] [address] [address] Caitlin Martinez Neutrophils/100 WBC (Bld) 63.6 % Normal 43.0-75.0 [facility] Comment on above: Performed By: #### U RCX #### [facility] [address] [address] [address] Caitlin Martinez Platelet mean volume (Bld) [Entitic vol] 9.1 fL Critically low 9.5-13.5 [facility] Comment on above: Performed By: #### U RCX #### [facility] [address] [address] [address] Caitlin Martinez PLT 355 103/ul Normal 150-450 [facility] Comment on above: Performed By: #### U RCX #### [facility] [address] [place] [address] Dr. Caitlin Martinez RBC 3.44 106/ul Critically low 4.20-5.40 [facility] Comment on above: Performed By: #### U RCX #### [facility] [address] [place] [address] Dr. Caitlin Martinez WBC 13.3 103/ul Critically high 4.0-11.0 [facility] Comment on above: Performed By: #### U RCX #### [facility] [address] [place] [address] Dr. Caitlin Martinez SCREENon 02-09-2022 SCREEN Negative Normal [facility] Comment on above: Performed By: #### F ETSCRN #### [facility] [address] [place] [address] Dr. Caitlin Martinez CBC AUTO DIFFon 02-08-2022 BASO # 0.1 103/ul Normal 0.0-0.1 [facility] Comment on above: Performed By: #### U RCX #### [facility] [address] [place] [address] Dr. Caitlin Martinez Basophils/100 WBC (Bld) 0.4 % Normal 0.2-2.0 [facility] Comment on above: Performed By: #### U RCX #### [facility] [address] [address] [address] Caitlin Martinez EO # 0.3 103/ul Normal 0.0-0.7 [facility] Comment on above: Performed By: #### U RCX #### [facility] [address] [address] [address] Caitlin Martinez Eosinophils/100 WBC (Bld) 2.6 % Normal 0.9-7.0 [facility] Comment on above: Performed By: #### U RCX #### [facility] [address] [place] [address] Dr. Caitlin Martinez Erythrocyte distribution width (RBC) [Ratio] 14.7 % Normal 11.0-15.0 [facility] Comment on above: Performed By: #### U RCX #### [facility] [address] [place] [address] Dr. Caitlin Martinez Hematocrit (Bld) [Volume fraction] 30.6 % Critically low 36.0-48.0 [facility] Comment on above: Performed By: #### U RCX #### [facility] [address] [place] [address] Dr. Caitlin Martinez Hemoglobin (Bld) [Mass/Vol] 9.7 g/dL Critically low 12.0-16.0 [facility] Comment on above: Performed By: #### U RCX #### [facility] [address] [place] [address] Dr. Caitlin Martinez IG # 0.15 10e3/ul Critically high 0.00-0.03 [facility] Comment on above: Performed By: #### U RCX #### [facility] [address] [place] [address] Dr. Caitlin Martinez IG % 1.3 % Critically high 0.0-0.5 [facility] Comment on above: Performed By: #### U RCX #### [facility] [address] [place] [address] Dr. Caitlin Martinez LYMPH # 2.8 103/ul Normal 1.2-3.8 [facility] Comment on above: Performed By: #### U RCX #### [facility] [address] [place] [address] Dr. Caitlin Martinez Lymphocytes/100 WBC (Bld) 24.8 % Normal 20.5-60.0 [facility] Comment on above: Performed By: #### U RCX #### [facility] [address] [place] [address] Dr. Caitlin Martinez MANUAL DIFF REQ NO Normal [facility] Comment on above: Performed By: #### U RCX #### [facility] [address] [place] [address] Dr. Caitlin Martinez MCH (RBC) [Entitic mass] 26.6 pg Critically low 26.7-34.0 [facility] Comment on above: Performed By: #### U RCX #### [facility] [address] [place] [address] Dr. Caitlin Martinez MCHC (RBC) [Mass/Vol] 31.7 g/dL Normal 29.9-35.2 [facility] Comment on above: Performed By: #### U RCX #### [facility] [address] [place] [address] Dr. Caitlin Martinez MCV (RBC) [Entitic vol] 83.8 fL Normal 81.0-99.0 [facility] Comment on above: Performed By: #### U RCX #### [facility] [address] [place] [address] Dr. Caitlin Martinez MONO # 1.0 103/ul Critically high 0.3-0.8 [facility] Comment on above: Performed By: #### U RCX #### [facility] [address] [place] [address] Dr. Caitlin Martinez Monocytes/100 WBC (Bld) 8.7 % Normal 1.7-12.0 [facility] Comment on above: Performed By: #### U RCX #### [facility] [address] [place] [address] Dr. Caitlin Martinez NEUT # 7.0 103/ul Critically high 1.4-6.5 [facility] Comment on above: Performed By: #### U RCX #### [facility] [address] [address] [address] Caitlin Martinez Neutrophils/100 WBC (Bld) 62.2 % Normal 43.0-75.0 [facility] Comment on above: Performed By: #### U RCX #### [facility] [address] [address] [address] Caitlin Martinez Platelet mean volume (Bld) [Entitic vol] 9.0 fL Critically low 9.5-13.5 [facility] [facility] Comment on above: Performed By: #### U RCX #### [facility] [address] [address] [address] Caitlin Martinez PLT 373 103/ul Normal 150-450 [facility] Comment on above: Performed By: #### U RCX #### [facility] [address] [place] [address] Dr. Caitlin Martinez RBC 3.65 106/ul Critically low 4.20-5.40 [facility] Comment on above: Performed By: #### U RCX #### [facility] [address] [address] [address] Caitlin Martinez WBC 11.3 103/ul Critically high 4.0-11.0 [facility] Comment on above: Performed By: #### U RCX #### [facility] [address] [place] [address] Dr. Caitlin Martinez [facility] SARS-CoV-2 (COVID-19) RNA JONATAN+probe Ql (Unsp spec) Not detected Normal NOT DETECTED [facility] Comment on above: Result Comment: When [...] for this test is supported by the Appeals Coordinator of Health and Human Service's declaration [...] By: #### C BC #### [facility] [address] [place] [address] Dr. Caitlin Martinez DIRECT COOMBSon 02-08-2022 DIRECT EDWINA Negative Normal [facility] Comment on above: Performed By: #### D IRCMB, ABID #### [facility] [address] [place] [address] Dr. Caitlin Martinez DRUG SCREEN RAPID (URINE)on 02-08-2022 AMP Negative Normal NEGATIVE [facility] Comment on above: Performed By: #### C BC #### [facility] [address] [place] [address] Dr. Caitlin Martinez BAR Negative Normal NEGATIVE [facility] Comment on above: Performed By: #### C BC #### [facility] [address] [place] [address] Dr. Caitlin Martinez BUP Negative Normal NEGATIVE [facility] Comment on above: Performed By: #### C BC #### [facility] [address] [place] [address] Dr. Caitlin Martinez BZO Negative Normal NEGATIVE [facility] Comment on above: Performed By: #### C BC #### [facility] [address] [place] [address] Dr. Caitlin Martinez JEANNA Negative Normal NEGATIVE [facility] Comment on above: Performed By: #### C BC #### [facility] [address] [place] [address] Dr. Caitlin Martinez CUT-OFFS SEE BELOW Normal [facility] Comment on above: Result Comment: AMP [...] By: #### C BC #### [facility] [address] [place] [address] Dr. Caitlin Martinez DRUG CUT HEADER DRUG CLASS TEST SYSTEM CUT-OFF CONCENTRATIONS ARE FOLLOWS: Normal [facility] Comment on above: Performed By: #### C BC #### [facility] [address] [place] [address] Dr. Caitlin Martinez mAMP Negative Normal NEGATIVE [facility] Comment on above: Performed By: #### C BC #### [facility] [address] [place] [address] Dr. Caitlin Martinez MTD Negative Normal NEGATIVE [facility] Comment on above: Performed By: #### C BC #### [facility] [address] [place] [address] Dr. Caitlin Martinez OPI Negative Normal NEGATIVE [facility] Comment on above: Performed By: #### C BC #### [facility] [address] [place] [address] Dr. Caitlin Martinez OXY Negative Normal NEGATIVE [facility] Comment on above: Performed By: #### C BC #### [facility] [address] [place] [address] Dr. Caitlin Martinez PCP Negative Normal NEGATIVE [facility] Comment on above: Performed By: #### C BC #### [facility] [address] [place] [address] Dr. Caitlin Martinez PPX Negative Normal NEGATIVE [facility] Comment on above: Performed By: #### C BC #### [facility] [address] [place] [address] Dr. Caitlin Martinez TCA Negative Normal NEGATIVE [facility] Comment on above: Performed By: #### C BC #### [facility] [address] [place] [address] Dr. Caitlin Martinez THC Negative Normal NEGATIVE [facility] Comment on above: Performed By: #### C BC #### [facility] [address] [place] [address] Dr. Caitlin Martinez TYPE AND SCREENon 02-08-2022 TYPE AND SCREEN Negative Normal [facility] Comment on above: Performed By: #### I HORACIO #### [facility] [address] [place] [address] Dr. Caitlin Martinez US PREG BIOPHY W [...] Date: 2022-02-05 16:28 Normal [facility] AMNISUREon 01-25-2022 AMNISURE Negative Normal NEGATIVE [facility] Comment on above: Performed By: #### A MNI #### [facility] [address] [place] [address] Dr. Caitlin Martinez CULTURE URINEon 01-25-2022 CULTURE URINE Culture Observations : No growth Normal [facility] Comment on above: Performed By: #### U RCX #### [facility] [address] [place] [address] Dr. Caitlin Martinez UA (CLEAN/CATCH) BIOLOGY RESEARCH ASSISTANT/MICRO I F IND.on 01-25-2022 Bilirubin Ql (U) Negative Normal NEGATIVE [facility] Comment on above: Performed By: #### C VDTBH #### [facility] [address] [place] [address] Dr. Caitlin Martinez Clarity (U) SL CLOUDY Abnormal CLEAR [facility] Comment on above: Performed By: #### C VDTBH #### [facility] [address] [address] [address] Caitlin Martinez Color (U) LT. YELLOW Normal YELLOW [facility] Comment on above: Performed By: #### C VDTBH #### [facility] [address] [address] [address] Caitlin Martinez Glucose Ql (U) Negative Normal NEGATIVE [facility] Comment on above: Performed By: #### C VDTBH #### [facility] [address] [address] [address] Caitlin Martinez Hemoglobin Ql (U) TRACE-INTACT Abnormal NEGATIVE [facility] Comment on above: Performed By: #### C VDTBH #### [facility] [address] [place] [address] Dr. Caitlin Martinez Ketones Ql (U) Negative Normal NEGATIVE [facility] Comment on above: Performed By: #### C VDTBH #### [facility] [address] [place] [address] Dr. Caitlin Martinez LEUKOCYTES TRACE Abnormal NEGATIVE [facility] Comment on above: Performed By: #### C VDTBH #### [facility] [address] [place] [address] Dr. Caitlin Martinez Nitrite Ql (U) Negative Normal NEGATIVE [facility] Comment on above: Performed By: #### C VDTBH #### [facility] [address] [place] [address] Dr. Caitlin Martinez pH (U) 6.5 [pH] Normal 5-9 [facility] Comment on above: Performed By: #### C VDTBH #### [facility] [address] [place] [address] Dr. Caitlin Martinez SPEC GRAVITY 1.020 Normal 1.005-<=1.025 [facility] Comment on above: Performed By: #### C VDTBH #### [facility] [address] [place] [address] Dr. Caitlin Martinez UA PROTEIN Negative Normal NEGATIVE/ TRACE [facility] Comment on above: Performed By: #### C VDTBH #### [facility] [address] [place] [address] Dr. Caitlin Martinez UR MICRO IND INDICATED Normal [facility] Comment on above: Performed By: #### C VDTBH #### [facility] [address] [place] [address] Dr. Caitlin Martinez Urobilinogen Qn (U) 0.2 {Barbara'U}/dL Normal 0.2 - 1. 0 [facility] Comment on above: Performed By: #### C VDTBH #### [facility] [address] [place] [address] Dr. Caitlin Martinez URINE MICROSCOPIC ONLYon BACTERIA MODERATE Abnormal NONE SEEN [facility] Comment on above: Performed By: #### C VDTBH #### [facility] [address] [place] [address] Dr. Caitlin Martinez Bacteria identified Cx Nom (U) INDICATED Normal [facility] Comment on above: Performed By: #### C VDTBH #### [facility] [address] [place] [address] Dr. Caitlin Martinez CAST NONE SEEN Normal NONE SEEN [facility] Comment on above: Performed By: #### C VDTBH #### [facility] [address] [place] [address] Dr. Caitlin Martinez Crystals LM Nom (Urine sed) NONE SEEN Normal NONE SEEN [facility] Comment on above: Performed By: #### C VDTBH #### [facility] [address] [place] [address] Dr. Caitlin Martinez Epithelial cells LM Ql (Urine sed) FEW Abnormal NONE SEEN /RARE [facility] Comment on above: Performed By: #### C VDTBH #### [facility] [address] [place] [address] Dr. Caitlin Martinez MUCOUS TRACE Abnormal NONE SEEN [facility] Comment on above: Performed By: #### C VDTBH #### [facility] [address] [place] [address] Dr. Caitlin Martinez RBC 2-5 Abnormal 0-2 [facility] Comment on above: Performed By: #### C VDTBH #### [facility] [address] [place] [address] Dr. Caitlin Martinez WBC 0-2 Abnormal NONE SEEN [facility] Comment on above: Performed By: #### C VDTBH #### [facility] [address] [place] [address] Dr. Caitlin Martinez AMYLASEon 01-16-2022 Amylase [Catalytic activity/Vol] 49 U/L Normal 25-115 [facility] Comment on above: Performed By: #### C VDTBH #### [facility] [address] [place] [address] Dr. Caitlin Martinez BUNon 01-16-2022 Urea nitrogen [Mass/Vol] 3.0 mg/dL Critically low 7.0-18.0 [facility] Comment on above: Performed By: #### C BC #### [facility] [address] [place] [address] Dr. Caitlin Martinez CBC AUTO DIFFon 01-16-2022 BASO # 0.1 103/ul Normal 0.0-0.1 [facility] Comment on above: Performed By: #### U RCX #### [facility] [address] [place] [address] Dr. Caitlin Martinez Basophils/100 WBC (Bld) 0.6 % Normal 0.2-2.0 [facility] Comment on above: Performed By: #### U RCX #### [facility] [address] [place] [address] Dr. Caitlin Martinez EO # 0.3 103/ul Normal 0.0-0.7 [facility] Comment on above: Performed By: #### U RCX #### [facility] [address] [place] [address] Dr. Caitlin Martinez Eosinophils/100 WBC (Bld) 2.6 % Normal 0.9-7.0 [facility] Comment on above: Performed By: #### U RCX #### [facility] [address] [place] [address] Dr. Caitlin Martinez Erythrocyte distribution width (RBC) [Ratio] 14.4 % Normal 11.0-15.0 [facility] Comment on above: Performed By: #### U RCX #### [facility] [address] [address] [address] Caitlin Martinez Hematocrit (Bld) [Volume fraction] 28.4 % Critically low 36.0-48.0 [facility] Comment on above: Performed By: #### U RCX #### [facility] [address] [place] [address] Dr. Caitlin Martinez Hemoglobin (Bld) [Mass/Vol] 9.0 g/dL Critically low 12.0-16.0 [facility] Comment on above: Performed By: #### U RCX #### [facility] [address] [place] [address] Dr. Caitlin Martinez IG # 0.11 10e3/ul Critically high 0.00-0.03 [facility] Comment on above: Performed By: #### U RCX #### [facility] [address] [place] [address] Dr. Caitlin Martinez IG % 1.1 % Critically high 0.0-0.5 [facility] Comment on above: Performed By: #### U RCX #### [facility] [address] [place] [address] Dr. Caitlin Martinez LYMPH # 2.2 103/ul Normal 1.2-3.8 [facility] Comment on above: Performed By: #### U RCX #### [facility] [address] [place] [address] Dr. Caitlin Martinez Lymphocytes/100 WBC (Bld) 21.0 % Normal 20.5-60.0 [facility] Comment on above: Performed By: #### U RCX #### [facility] [address] [place] [address] Dr. Caitlin Martinez MANUAL DIFF REQ NO Normal [facility] Comment on above: Performed By: #### U RCX #### [facility] [address] [place] [address] Dr. Caitlin Martinez MCH (RBC) [Entitic mass] 28.2 pg Normal 26.7-34.0 [facility] Comment on above: Performed By: #### U RCX #### [facility] [address] [address] [address] Caitlin Martinez MCHC (RBC) [Mass/Vol] 31.7 g/dL Normal 29.9-35.2 [facility] Comment on above: Performed By: #### U RCX #### [facility] [address] [place] [address] Dr. Caitlin Martinez MCV (RBC) [Entitic vol] 89.0 fL Normal 81.0-99.0 [facility] Comment on above: Performed By: #### U RCX #### [facility] [address] [place] [address] Dr. Caitlin Martinez MONO # 0.9 103/ul Critically high 0.3-0.8 [facility] Comment on above: Performed By: #### U RCX #### [facility] [address] [place] [address] Dr. Caitlin Martinez Monocytes/100 WBC (Bld) 8.9 % Normal 1.7-12.0 [facility] Comment on above: Performed By: #### U RCX #### [facility] [address] [place] [address] Dr. Caitlin Martinez NEUT # 6.8 103/ul Critically high 1.4-6.5 [facility] Comment on above: Performed By: #### U RCX #### [facility] [address] [place] [address] Dr. Caitlin Martinez Neutrophils/100 WBC (Bld) 65.8 % Normal 43.0-75.0 [facility] Comment on above: Performed By: #### U RCX #### [facility] [address] [place] [address] Dr. Caitlin Martinez Platelet mean volume (Bld) [Entitic vol] 8.6 fL Critically low 9.5-13.5 [facility] Comment on above: Performed By: #### U RCX #### [facility] [address] [place] [address] Dr. Caitlin Martinez PLT 322 103/ul Normal 150-450 [facility] Comment on above: Performed By: #### U RCX #### [facility] [address] [address] [address] Caitlin Martinez RBC 3.19 106/ul Critically low 4.20-5.40 [facility] Comment on above: Performed By: #### U RCX #### [facility] [address] [address] [address] Caitiln Martinez WBC 10.3 103/ul Normal 4.0-11.0 [facility] Comment on above: Performed By: #### U RCX #### [facility] [address] [address] [address] Caitlin Martinez CREATININEon 01-16-2022 Creatinine [Mass/Vol] 0.55 mg/dL Normal 0.55-1.02 [facility] Comment on above: Performed By: #### C VDTBH #### [facility] [address] [place] [address] Dr. Caitlin Martinez EGFR-AF [place] >60 Normal >=60 [facility] Comment on above: Performed By: #### C VDTBH #### [facility] [address] [place] [address] Dr. Caitlin Martinez EGFR-NON AF [place] >60 Normal >=60 [facility] Comment on above: Performed By: #### C VDTBH #### [facility] [address] [address] [address] Caitlin Martinez ELECTROLYTESon 01-16-2022 Anion gap [Moles/Vol] 13.6 mmol/L Normal [facility] Comment on above: Performed By: #### C VDTBH #### [facility] [address] [address] [address] Caitlin Martinez Chloride [Moles/Vol] 106 mmol/L Normal 98-107 [facility] Comment on above: Performed By: #### C VDTBH #### [facility] [address] [place] [address] Dr. Caitlin Martinez CO2 [Moles/Vol] 22.9 mmol/L Normal 21.0-32.0 [facility] Comment on above: Performed By: #### C VDTBH #### [facility] [address] [place] [address] Dr. Caitlin Martinez Potassium [Moles/Vol] 3.5 mmol/L Normal 3.5-5.1 [facility] Comment on above: Performed By: #### C VDTBH #### [facility] [address] [place] [address] Dr. Caitlin Martinez Sodium [Moles/Vol] 139 mmol/L Normal 136-145 [facility] Comment on above: Performed By: #### C VDTBH #### [facility] [address] [place] [address] Dr. Caitlin Martinez LIPASEon 01-16-2022 Lipase [Catalytic activity/Vol] 66.0 U/L Critically low 73.0-393.0 [facility] Comment on above: Performed By: #### C BC #### [facility] [address] [place] [address] Dr. Caitlin Martinez SGOTon 01-16-2022 AST [Catalytic activity/Vol] 12 U/L Critically low 15-37 [facility] Comment on above: Performed By: #### C VDTBH #### [facility] [address] [place] [address] Dr. Caitlin Martinez SGPTon 01-16-2022 ALT [Catalytic activity/Vol] 9 U/L Critically low 14-59 [facility] Comment on above: Performed By: #### C VDTBH #### [facility] [address] [place] [address] Dr. Caitlin Martinez CBC AUTO DIFFon 01-15-2022 BASO # 0.1 103/ul Normal 0.0-0.1 [facility] Comment on above: Performed By: #### C VDTBH #### [facility] [address] [place] [address] Dr. Caitlin Martinez Basophils/100 WBC (Bld) 0.4 % Normal 0.2-2.0 [facility] Comment on above: Performed By: #### C VDTBH #### [facility] [address] [address] [address] Caitlin Martinez EO # 0.2 103/ul Normal 0.0-0.7 [facility] Comment on above: Performed By: #### C VDTBH #### [facility] [address] [address] [address] Caitlin Martinez Eosinophils/100 WBC (Bld) 1.4 % Normal 0.9-7.0 [facility] Comment on above: Performed By: #### C VDTBH #### [facility] [address] [place] [address] Dr. Caitlin Martinze Erythrocyte distribution width (RBC) [Ratio] 14.1 % Normal 11.0-15.0 [facility] Comment on above: Performed By: #### C VDTBH #### [facility] [address] [place] [address] Dr. Caitlin Martinez Hematocrit (Bld) [Volume fraction] 28.4 % Critically low 36.0-48.0 [facility] Comment on above: Performed By: #### C VDTBH #### [facility] [address] [place] [address] Dr. Caitlin Martinez Hemoglobin (Bld) [Mass/Vol] 9.0 g/dL Critically low 12.0-16.0 [facility] Comment on above: Performed By: #### C VDTBH #### [facility] [address] [place] [address] Dr. Caitlin Martinez IG # 0.18 10e3/ul Critically high 0.00-0.03 [facility] Comment on above: Performed By: #### C VDTBH #### [facility] [address] [place] [address] Dr. Caitlin Martinez IG % 1.3 % Critically high 0.0-0.5 [facility] Comment on above: Performed By: #### C VDTBH #### [facility] [address] [place] [address] Dr. Caitlin Martinez LYMPH # 2.4 103/ul Normal 1.2-3.8 [facility] Comment on above: Performed By: #### C VDTBH #### [facility] [address] [address] [address] Caitlin Martinez Lymphocytes/100 WBC (Bld) 16.8 % Critically low 20.5-60.0 [facility] Comment on above: Performed By: #### C VDTBH #### [facility] [address] [place] [address] Dr. Caitlin Martinez MANUAL DIFF REQ NO Normal [facility] Comment on above: Performed By: #### C VDTBH #### [facility] [address] [place] [address] Dr. Caitlin Martinez MCH (RBC) [Entitic mass] 27.9 pg Normal 26.7-34.0 [facility] Comment on above: Performed By: #### C VDTBH #### [facility] [address] [place] [address] Dr. Caitlin Martinez MCHC (RBC) [Mass/Vol] 31.7 g/dL Normal 29.9-35.2 [facility] Comment on above: Performed By: #### C VDTBH #### [facility] [address] [place] [address] Dr. Caitlin Martinez MCV (RBC) [Entitic vol] 87.9 fL Normal 81.0-99.0 [facility] Comment on above: Performed By: #### C VDTBH #### [facility] [address] [place] [address] Dr. Caitlin Martinez MONO # 0.9 103/ul Critically high 0.3-0.8 [facility] Comment on above: Performed By: #### C VDTBH #### [facility] [address] [place] [address] Dr. Caitlin Martinez Monocytes/100 WBC (Bld) 6.7 % Normal 1.7-12.0 [facility] Comment on above: Performed By: #### C VDTBH #### [facility] [address] [place] [address] Dr. Caitlin Martinez NEUT # 10.3 103/ul Critically high 1.4-6.5 [facility] Comment on above: Performed By: #### C VDTBH #### [facility] [address] [address] [address] Caitlin Martinez Neutrophils/100 WBC (Bld) 73.4 % Normal 43.0-75.0 [facility] Comment on above: Performed By: #### C VDTBH #### [facility] [address] [address] [address] Caitlin Martinez Platelet mean volume (Bld) [Entitic vol] 9.0 fL Critically low 9.5-13.5 [facility] Comment on above: Performed By: #### C VDTBH #### [facility] [address] [place] [address] Dr. Caitlin Martinez PLT 318 103/ul Normal 150-450 [facility] Comment on above: Performed By: #### C VDTBH #### [facility] [address] [place] [address] Dr. Caitlin Martinez RBC 3.23 106/ul Critically low 4.20-5.40 [facility] [facility] Comment on above: Performed By: #### C VDTBH #### [facility] [address] [place] [address] Dr. Caitlin Martinez WBC 14.0 103/ul Critically high 4.0-11.0 [facility] Comment on above: Performed By: #### C VDTBH #### [facility] [address] [place] [address] ABD/PELVIS WO CONon [...] Date: 2022-01-15 16:31 Normal [facility] CULTURE URINEon 01-15-2022 CULTURE URINE Culture Observations : LIGHT GROWTH OF MIXED GENITAL COSME. NO POTENTIAL PATHOGENS SEEN. Normal [facility] Comment on above: Performed By: #### U RCX #### [facility] [address] [place] [address] Dr. Caitlin Martinez UA (CLEAN/CATCH) BIOLOGY RESEARCH ASSISTANT/MICRO I F IND.on 01-15-2022 Bilirubin Ql (U) Negative Normal NEGATIVE [facility] Comment on above: Performed By: #### C BC #### [facility] [address] [place] [address] Dr. Caitlin Martinez Clarity (U) CLEAR Normal CLEAR [facility] Comment on above: Performed By: #### C BC #### [facility] [address] [place] [address] Dr. Caitlin Martinez Color (U) LT. YELLOW Normal YELLOW [facility] Comment on above: Performed By: #### C BC #### [facility] [address] [place] [address] Dr. Caitlin Martinez Glucose Ql (U) Negative Normal NEGATIVE [facility] Comment on above: Performed By: #### C BC #### [facility] [address] [place] [address] Dr. Caitlin Martinez Hemoglobin Ql (U) Negative Normal NEGATIVE [facility] Comment on above: Performed By: #### C BC #### [facility] [address] [place] [address] Dr. Caitlin Martinez Ketones Ql (U) Negative Normal NEGATIVE [facility] Comment on above: Performed By: #### C BC #### [facility] [address] [place] [address] Dr. Caitlin Martinez LEUKOCYTES TRACE Abnormal NEGATIVE [facility] Comment on above: Performed By: #### C BC #### [facility] [address] [place] [address] Dr. Caitlin Martinez Nitrite Ql (U) Negative Normal NEGATIVE [facility] Comment on above: Performed By: #### C BC #### [facility] [address] [place] [address] Dr. Caitlin Martinez pH (U) 7.0 [pH] Normal 5-9 [facility] Comment on above: Performed By: #### C BC #### [facility] [address] [place] [address] Dr. Caitlin Martinez SPEC GRAVITY 1.010 Normal 1.005-<=1.025 [facility] Comment on above: Performed By: #### C BC #### [facility] [address] [place] [address] Dr. Caitlin Martinez UA PROTEIN Negative Normal NEGATIVE/ TRACE [facility] Comment on above: Performed By: #### C BC #### [facility] [address] [place] [address] Dr. Caitlin Martinez UR MICRO IND INDICATED Normal [facility] Comment on above: Performed By: #### C BC #### [facility] [address] [place] [address] Dr. Caitlin Martinez Urobilinogen Qn (U) 0.2 {Barbara'U}/dL Normal 0.2 - 1. 0 [facility] Comment on above: Performed By: #### C BC #### [facility] [address] [place] [address] Dr. Caitlin Martinez URINE MICROSCOPIC ONLYon BACTERIA MODERATE Abnormal NONE SEEN [facility] Comment on above: Performed By: #### C BC #### [facility] [address] [place] [address] Dr. Caitlin Martinez Bacteria identified Cx Nom (U) INDICATED Normal [facility] Comment on above: Performed By: #### C BC #### [facility] [address] [place] [address] Dr. Caitlin Martinez CAST NONE SEEN Normal NONE SEEN [facility] Comment on above: Performed By: #### C BC #### [facility] [address] [place] [address] Dr. Caitlin Martinez Crystals LM Nom (Urine sed) NONE SEEN Normal NONE SEEN [facility] Comment on above: Performed By: #### C BC #### [facility] [address] [place] [address] Dr. Caitlin Martinez Epithelial cells LM Ql (Urine sed) MODERATE Abnormal NONE SEEN /RARE [facility] Comment on above: Performed By: #### C BC #### [facility] [address] [place] [address] Dr. Caitlin Martinez MUCOUS NONE SEEN Normal NONE SEEN [facility] Comment on above: Performed By: #### C BC #### [facility] [address] [place] [address] Dr. Caitlin Martinez RBC NONE SEEN Abnormal 0-2 [facility] Comment on above: Performed By: #### C BC #### [facility] [address] [place] [address] Dr. Caitlin Martinez WBC 2-5 Abnormal NONE SEEN [facility] Comment on above: Performed By: #### C BC #### [facility] [address] [place] [address] Dr. Caitlin Martinez US APPENDIXon 01-15-2022 US [...] DAVID BLACKMON Date: 2022-01-15 14:14 Normal [facility] US PREG GROWTHon 01-15-2022 US PREG [...] DAVID BLACKMON Date: 2022-01-15 10:59 Normal [facility] US PREG PLACENTAon US PREG PLACENTA [...] Date: 2022-01-15 10:57 Normal [facility] UA (CLEAN/CATCH) BIOLOGY RESEARCH ASSISTANT/MICRO I F IND.on 12-29-2021 Bilirubin Ql (U) Negative Normal NEGATIVE [facility] Comment on above: Performed By: #### C BC #### [facility] [address] [place] [address] Dr. Caitlin Martinez Clarity (U) CLEAR Normal CLEAR [facility] Comment on above: Performed By: #### C BC #### [facility] [address] [place] [address] Dr. Caitlin Martinez Color (U) LT. YELLOW Normal YELLOW [facility] Comment on above: Performed By: #### C BC #### [facility] [address] [place] [address] Dr. Caitlin Martinez Glucose Ql (U) Negative Normal NEGATIVE [facility] Comment on above: Performed By: #### C BC #### [facility] [address] [place] [address] Dr. Caitlin Martinez Hemoglobin Ql (U) Negative Normal NEGATIVE [facility] Comment on above: Performed By: #### C BC #### [facility] [address] [place] [address] Dr. Caitlin Martinez Ketones Ql (U) Negative Normal NEGATIVE [facility] Comment on above: Performed By: #### C BC #### [facility] [address] [place] [address] Dr. Caitlin Martinez LEUKOCYTES Negative Normal NEGATIVE [facility] Comment on above: Performed By: #### C BC #### [facility] [address] [place] [address] Dr. Caitlin Martinez Nitrite Ql (U) Negative Normal NEGATIVE [facility] Comment on above: Performed By: #### C BC #### [facility] [address] [place] [address] Dr. Caitlin Martinez pH (U) 6.5 [pH] Normal 5-9 [facility] Comment on above: Performed By: #### C BC #### [facility] [address] [place] [address] Dr. Caitlin Martinez SPEC GRAVITY 1.020 Normal 1.005-<=1.025 [facility] Comment on above: Performed By: #### C BC #### [facility] [address] [place] [address] Dr. Caitlin Martinez UA PROTEIN Negative Normal NEGATIVE/ TRACE [facility] Comment on above: Performed By: #### C BC #### [facility] [address] [place] [address] Dr. Caitlin Martinez UR MICRO IND NOT INDICATED Normal [facility] Comment on above: Performed By: #### C BC #### [facility] [address] [place] [address] Dr. Caitlin Martinez Urobilinogen Qn (U) 1.0 {Barbara'U}/dL Normal 0.2 - 1. 0 [facility] Comment on above: Performed By: #### C BC #### [facility] [address] [place] [address] Dr. Caitlin Martinez US PREG CERVICAL LENGTHon [...] Date: 2021-12-29 15:53 Normal [facility] UA (CLEAN/CATCH) BIOLOGY RESEARCH ASSISTANT/MICRO I F IND.on 12-18-2021 Bilirubin Ql (U) Negative Normal NEGATIVE [facility] Comment on above: Performed By: #### C BC #### [facility] [address] [place] [address] Dr. Caitlin Martinez Clarity (U) CLEAR Normal CLEAR [facility] Comment on above: Performed By: #### C BC #### [facility] [address] [place] [address] Dr. Caitlin Martinez Color (U) YELLOW Normal YELLOW [facility] Comment on above: Performed By: #### C BC #### [facility] [address] [place] [address] Dr. Caitlin Martinez Glucose Ql (U) Negative Normal NEGATIVE [facility] Comment on above: Performed By: #### C BC #### [facility] [address] [place] [address] Dr. Caitlin Martinez Hemoglobin Ql (U) Negative Normal NEGATIVE [facility] Comment on above: Performed By: #### C BC #### [facility] [address] [place] [address] Dr. Caitlin Martinez Ketones Ql (U) TRACE Abnormal NEGATIVE [facility] Comment on above: Performed By: #### C BC #### [facility] [address] [place] [address] Dr. Caitlin Martinez LEUKOCYTES Negative Normal NEGATIVE [facility] Comment on above: Performed By: #### C BC #### [facility] [address] [place] [address] Dr. Caitlin Martinez Nitrite Ql (U) Negative Normal NEGATIVE [facility] Comment on above: Performed By: #### C BC #### [facility] [address] [place] [address] Dr. Caitlin Martinez pH (U) 6.0 [pH] Normal 5-9 [facility] Comment on above: Performed By: #### C BC #### [facility] [address] [place] [address] Dr. Caitlin Martinez SPEC GRAVITY 1.025 Normal 1.005-<=1.025 [facility] Comment on above: Performed By: #### C BC #### [facility] [address] [place] [address] Dr. Caitlin Martinez UA PROTEIN Negative Normal NEGATIVE/ TRACE [facility] Comment on above: Performed By: #### C BC #### [facility] [address] [place] [address] Dr. Caitlin Martinez UR MICRO IND NOT INDICATED Normal [facility] Comment on above: Performed By: #### C BC #### [facility] [address] [place] [address] Dr. Caitlin Martinez Urobilinogen Qn (U) 4 {Barbara'U}/dL Abnormal 0.2 - 1.0 [facility] Comment on above: Performed By: #### C BC #### [facility] [address] [place] [address] Dr. Caitlin Martinez RHOGAMon 11-28-2021 RHOGAM Status Information Issued Quantity 1 Product ID Rh Immune Globulin Lot Number [id number] Issue Date/Time [id number] Normal [facility] Comment on above: Performed By: #### I HORACIO #### [facility] [address] [place] [address] Dr. Caitlin Martinez TYPE AND SCREENon 11-27-2021 TYPE AND SCREEN Negative Normal [facility] Comment on above: Performed By: #### T NS #### [facility] [address] [place] [address] Dr. Caitlin Martinez CULTURE URINEon 11-23-2021 CULTURE URINE Culture Observations : No growth Normal [facility] Comment on above: Performed By: #### I HORACIO #### [facility] [address] [place] [address] Dr. Caitlin Martinez UA (CLEAN/CATCH) BIOLOGY RESEARCH ASSISTANT/MICRO I F IND.on 11-23-2021 Bilirubin Ql (U) Negative Normal NEGATIVE [facility] Comment on above: Performed By: #### U RCX #### [facility] [address] [place] [address] Dr. Caitlin Martinez Clarity (U) CLEAR Normal CLEAR [facility] Comment on above: Performed By: #### U RCX #### [facility] [address] [place] [address] Dr. Caitlin Martinez Color (U) LT. YELLOW Normal YELLOW [facility] Comment on above: Performed By: #### U RCX #### [facility] [address] [place] [address] Dr. Caitlin Martinez Glucose Ql (U) Negative Normal NEGATIVE [facility] Comment on above: Performed By: #### U RCX #### [facility] [address] [place] [address] Dr. Caitlin Martinez Hemoglobin Ql (U) Negative Normal NEGATIVE [facility] Comment on above: Performed By: #### U RCX #### [facility] [address] [place] [address] Dr. Caitlin Martinez Ketones Ql (U) Negative Normal NEGATIVE [facility] Comment on above: Performed By: #### U RCX #### [facility] [address] [place] [address] Dr. Caitlin Martinez LEUKOCYTES SMALL Abnormal NEGATIVE [facility] Comment on above: Performed By: #### U RCX #### [facility] [address] [place] [address] Dr. Caitlin Martinez Nitrite Ql (U) Negative Normal NEGATIVE [facility] Comment on above: Performed By: #### U RCX #### [facility] [address] [place] [address] Dr. Caitlin Martinez pH (U) 6.5 [pH] Normal 5-9 [facility] Comment on above: Performed By: #### U RCX #### [facility] [address] [place] [address] Dr. Caitlin Martinez SPEC GRAVITY 1.010 Normal 1.005-<=1.025 [facility] Comment on above: Performed By: #### U RCX #### [facility] [address] [place] [address] Dr. Caitlin Martinez UA PROTEIN Negative Normal NEGATIVE/ TRACE [facility] Comment on above: Performed By: #### U RCX #### [facility] [address] [place] [address] Dr. Caitlin Martinez UR MICRO IND INDICATED Normal [facility] Comment on above: Performed By: #### U RCX #### [facility] [address] [place] [address] Dr. Caitlin Martinez Urobilinogen Qn (U) 0.2 {Barbara'U}/dL Normal 0.2 - 1. 0 [facility] Comment on above: Performed By: #### U RCX #### [facility] [address] [place] [address] Dr. Caitlin Martinez URINE MICROSCOPIC ONLYon BACTERIA TRACE Abnormal NONE SEEN [facility] Comment on above: Performed By: #### U RCX #### [facility] [address] [place] [address] Dr. Caitlin Martinez Bacteria identified Cx Nom (U) INDICATED Normal [facility] Comment on above: Performed By: #### U RCX #### [facility] [address] [place] [address] Dr. Caitlin Martinez CAST SEEN Abnormal NONE SEEN [facility] Comment on above: Performed By: #### U RCX #### [facility] [address] [place] [address] Dr. Caitlin Martinez Crystals LM Nom (Urine sed) SEEN Abnormal NONE SEEN [facility] Comment on above: Performed By: #### U RCX #### [facility] [address] [place] [address] Dr. Caitlin Martinez Epithelial cells LM Ql (Urine sed) RARE Normal NONE SEEN /RARE [facility] Comment on above: Performed By: #### U RCX #### [facility] [address] [place] [address] Dr. Caitlin Martinez MUCOUS TRACE Abnormal NONE SEEN [facility] Comment on above: Performed By: #### U RCX #### [facility] [address] [place] [address] Dr. Caitlin Martinez RBC 0-2 Normal 0-2 [facility] Comment on above: Performed By: #### U RCX #### [facility] [address] [place] [address] Dr. Caitlin Martinez WBC 2-5 Abnormal NONE SEEN [facility] Comment on above: Performed By: #### U RCX #### [facility] [address] [place] [address] Dr. Caitlin Martinez GLUCOSE - 1HRon 11-06-2021 Glucose [Mass/Vol] 131 mg/dL Critically high 74-106 [facility] Comment on above: Performed By: #### I HORACIO #### [facility] [address] [place] [address] Dr. Caitlin Martinez HEMOGRAM AND PLATELon 2021 Hematocrit (Bld) [Volume fraction] 34.2 % Critically low 36.0-48.0 [facility] Comment on above: Performed By: #### C BC #### [facility] [address] [place] [address] Dr. Caitlin Martinez Hemoglobin (Bld) [Mass/Vol] 11.3 g/dL Critically low 12.0-16.0 [facility] Comment on above: Performed By: #### C BC #### [facility] [address] [place] [address] Dr. Caitlin Martinez MCH (RBC) [Entitic mass] 31.7 pg Normal 26.7-34.0 [facility] Comment on above: Performed By: #### C BC #### [facility] [address] [place] [address] Dr. Caitlin Martinez MCHC (RBC) [Mass/Vol] 33.0 g/dL Normal 29.9-35.2 [facility] Comment on above: Performed By: #### C BC #### [facility] [address] [place] [address] Dr. Caitlin Martinez MCV (RBC) [Entitic vol] 96.1 fL Normal 81.0-99.0 [facility] Comment on above: Performed By: #### C BC #### [facility] [address] [place] [address] Dr. Caitlin Martinez PLT 372 103/ul Normal 150-450 [facility] Comment on above: Performed By: #### C BC #### [facility] [address] [place] [address] Dr. Caitlin Martinez RBC 3.56 106/ul Critically low 4.20-5.40 [facility] Comment on above: Performed By: #### C BC #### [facility] [address] [place] [address] Dr. Caitlin Martinez WBC 10.1 103/ul Normal 4.0-11.0 [facility] Comment on above: Performed By: #### C BC #### [facility] [address] [place] [address] Dr. Caitlin Martinez CHLAMYDIA/GONOCOCCUS JONATAN (SW AB/URINE/PAPon 10-31-2021 Chlamydia trachomatis, JONATAN Negative Normal Negative [facility] Comment on above: Performed By: #### C BC #### [facility] [address] [place] [address] Dr. Caitlin Martinez Neisseria gonorrhoeae, JONATAN Negative Normal Negative [facility] Comment on above: Performed By: #### C BC #### [facility] [address] [place] [address] Dr. Caitlin Martinez VAGINITIS/VAGINOSIS DNA PROB Paramjit 10-29-2021 Selena species Negative Normal Negative [facility] Comment on above: Performed By: #### U RCX #### [facility] [address] [address] [address] Caitlin Martinez Gardnerella vaginalis Negative Normal Negative [facility] Comment on above: Performed By: #### U RCX #### [facility] [address] [address] [address] Caitlin Martinez Trichomonas vaginalis Negative Normal Negative [facility] Comment on above: Performed By: #### U RCX #### [facility] [address] [place] [address] Dr. Caitlin Martinez US PREG INCOMPLETE ANATOMYon [...] Date: 2021-10-26 12:05 Normal [facility] CBC W MANUAL DIFFon 10-25-19 22 ATYPICAL LYMPH # Normal [facility] Comment on above: Performed By: #### U RCX #### [facility] [address] [place] [address] Dr. Caitlin Martinez ATYPICAL LYMPH % Normal [facility] Comment on above: Performed By: #### U RCX #### [facility] [address] [place] [address] Dr. Caitlin Martinez BAND # 0.1 103/ul Normal 0.0-0.3 [facility] Comment on above: Performed By: #### U RCX #### [facility] [address] [place] [address] Dr. Caitlin Martinez BAND % 1 % Normal 0-5 [facility] Comment on above: Performed By: #### U RCX #### [facility] [address] [place] [address] Dr. Caitlin Martinez BASOM # 0.00 103/ul Normal 0.00-0.10 [facility] Comment on above: Performed By: #### U RCX #### [facility] [address] [place] [address] Dr. Caitlin Martinez BASOM % 0.0 % Critically low 0.2-2.0 [facility] Comment on above: Performed By: #### U RCX #### [facility] [address] [place] [address] Dr. Caitlin Martinez BLAST # Normal [facility] Comment on above: Performed By: #### U RCX #### [facility] [address] [place] [address] Dr. Caitlin Martinez BLAST % Normal [facility] Comment on above: Performed By: #### U RCX #### [facility] [address] [place] [address] Dr. Caitlin Martinez CORRECTED WBC Normal 4.0-11.0 [facility] Comment on above: Performed By: #### U RCX #### [facility] [address] [place] [address] Dr. Caitlin Martinez EOS # 0.12 103/ul Normal 0.00-0.70 [facility] Comment on above: Performed By: #### U RCX #### [facility] [address] [place] [address] Dr. Caitlin Martinez EOS% 1.0 % Normal 0.9-7.0 [facility] Comment on above: Performed By: #### U RCX #### [facility] [address] [place] [address] Dr. Caitlin Martinez HCT 31.5 % Critically low 36.0-48.0 [facility] Comment on above: Performed By: #### U RCX #### [facility] [address] [place] [address] Dr. Caitlin Martinez HGB 10.5 g/dl Critically low 12.0-16.0 [facility] Comment on above: Performed By: #### U RCX #### [facility] [address] [place] [address] Dr. Caitlin Martinez LYMPHM # 0.37 103/ul Critically low 1.20-3.80 [facility] Comment on above: Performed By: #### U RCX #### [facility] [address] [address] [address] Caitlin Martinez LYMPHM% 3.0 % Critically low 20.5-60.0 The [facility] Comment on above: Performed By: #### U RCX #### [facility] [address] [address] [address] Caitlin Martinez MCH 31.8 pg Normal 26.7-34.0 [facility] Comment on above: Performed By: #### U RCX #### [facility] [address] [place] [address] Dr. Caitlin Martinez MCHC 33.3 g/dl Normal 29.9-35.2 [facility] Comment on above: Performed By: #### U RCX #### [facility] [address] [place] [address] Dr. Caitlin Martinez MCV 95.5 fL Normal 81.0-99.0 [facility] Comment on above: Performed By: #### U RCX #### [facility] [address] [place] [address] Dr. Caitlin Martinez METAMYELOCYTE # Normal [facility] Comment on above: Performed By: #### U RCX #### [facility] [address] [place] [address] Dr. Caitlin Martinez METAMYELOCYTE % Normal [facility] Comment on above: Performed By: #### U RCX #### [facility] [address] [place] [address] Dr. Caitlin Martinez MONOM# 0.73 103/ul Normal 0.30-0.80 [facility] Comment on above: Performed By: #### U RCX #### [facility] [address] [place] [address] Dr. Caitlin Martinez MONOM% 6.0 % Normal 1.7-12.0 [facility] Comment on above: Performed By: #### U RCX #### [facility] [address] [address] [address] Caitlin Martinez MPV 9.5 fL Normal 9.5-13.5 [facility] Comment on above: Performed By: #### U RCX #### [facility] [address] [address] [address] Caitlin Martinez MYELOCYTE # Normal [facility] Comment on above: Performed By: #### U RCX #### [facility] [address] [address] [address] Caitlin Martinez MYELOCYTE % Normal [facility] Comment on above: Performed By: #### U RCX #### [facility] [address] [place] [address] Dr. Caitlin Martinez NRBC Normal [facility] Comment on above: Performed By: #### U RCX #### [facility] [address] [place] [address] Dr. Caitlin Martinez PLT 275 103/ul Normal 150-450 [facility] Comment on above: Performed By: #### U RCX #### [facility] [address] [address] [address] Caitlin Martinez RBC 3.30 106/ul Critically low 4.20-5.40 [facility] Comment on above: Performed By: #### U RCX #### [facility] [address] [place] [address] Dr. Caitlin Martinez RDW 13.6 % Normal 11.0-15.0 [facility] Comment on above: Performed By: #### U RCX #### [facility] [address] [address] [address] Caitlin Martinez SEG # 10.86 103/ul Critically high 1.40-6.50 [facility] Comment on above: Performed By: #### U RCX #### [facility] [address] [place] [address] Dr. Caitlin Martinez SEG % 89.0 % Critically high 43.0-75.0 [facility] Comment on above: Performed By: #### U RCX #### [facility] [address] [place] [address] Dr. Caitlin Martinez WBC 12.2 103/ul Critically high 4.0-11.0 [facility] Comment on above: Performed By: #### U RCX #### [facility] [address] [place] [address] Dr. Caitlin Martinez ER URINE PROFILEon 2 Bilirubin Ql (U) Negative Normal NEGATIVE [facility] Comment on above: Performed By: #### C VDTBH #### [facility] [address] [place] [address] Dr. Caitlin Martinez Clarity (U) SL CLOUDY Abnormal CLEAR [facility] Comment on above: Performed By: #### C VDTBH #### [facility] [address] [place] [address] Dr. Caitlin Martinez Color (U) YELLOW Normal YELLOW [facility] Comment on above: Performed By: #### C VDTBH #### [facility] [address] [place] [address] Dr. Caitlin Martinez ERUAHNadine A micrscopic examination will be performed if indicated. Normal [facility] Comment on above: Performed By: #### C VDTBH #### [facility] [address] [place] [address] Dr. Caitlin Martinez Glucose Ql (U) Negative Normal NEGATIVE [facility] Comment on above: Performed By: #### C VDTBH #### [facility] [address] [place] [address] Dr. Caitlin Martinez Hemoglobin Ql (U) Negative Normal NEGATIVE [facility] Comment on above: Performed By: #### C VDTBH #### [facility] [address] [place] [address] Dr. Caitlin Maritnez Ketones Ql (U) >=80 Abnormal NEGATIVE [facility] Comment on above: Performed By: #### C VDTBH #### [facility] [address] [place] [address] Dr. Caitlin Martinez LEUKOCYTES Negative Normal NEGATIVE [facility] Comment on above: Performed By: #### C VDTBH #### [facility] [address] [place] [address] Dr. Caitlin Martinez Nitrite Ql (U) Negative Normal NEGATIVE [facility] Comment on above: Performed By: #### C VDTBH #### [facility] [address] [place] [address] Dr. Caitlin Martinez pH (U) 6.0 [pH] Normal 5-9 [facility] Comment on above: Performed By: #### C VDTB #### [facility] [address] [place] [address] Dr. Caitlin Martinez SPEC GRAVITY 1.020 Normal 1.005-<=1.025 [facility] Comment on above: Performed By: #### C VDTB #### [facility] [address] [place] [address] Dr. Caitlin Martinez UA PROTEIN Negative Normal NEGATIVE/ TRACE [facility] Comment on above: Performed By: #### C VDTBH #### [facility] [address] [place] [address] Dr. Caitlin Martinez UR MICRO IND NOT INDICATED Normal [facility] Comment on above: Performed By: #### C VDTBH #### [facility] [address] [place] [address] Dr. Caitlin Martinez Urobilinogen Qn (U) 1.0 {Barbara'U}/dL Normal 0.2 - 1. 0 [facility] Comment on above: Performed By: #### C VDTBH #### [facility] [address] [place] [address] Dr. Caitlin Martinez INFLUENZA A AND B AGon 10-24 INFLUBNFORMERLY [facility] SEE BELOW Normal [facility] Comment on above: Result Comment: Nega tive for Flu B protein antigen. Infection due to Flu B cannot be ruled out. Flu B antigen in the sample may be below the detection limit of the test. Performed By: #### C VDTBH #### [facility] [address] [place] [address] Dr. Caitlin Martinez INFLUENZA A AG Positive Abnormal NEGATIVE SEE COMMENT [facility] Comment on above: Performed By: #### C VDTBH #### [facility] [address] [place] [address] Dr. Caitlin Martinez INFLUENZA B AG Negative Normal NEGATIVE SEE COMMENT [facility] Comment on above: Performed By: #### C VDTBH #### [facility] [address] [place] [address] Dr. Caitlin Martinez INFLUPOSH SEE BELOW Normal [facility] Comment on above: Result Comment: NOTE : Live attenuated influenzae vaccine viruses can cause a positive result for a rapid influenza diagnostic test if administered up to 7 days prior to rapid testing. Performed By: #### C VDTBH #### [facility] [address] [place] [address] Dr. Caitlin Martinez INTERNAL CONTROLS Within Normal Limits Normal Wi thin Normal Limits [facility] Comment on above: Performed By: #### C VDTBH #### [facility] [address] [place] [address] Dr. Caitlin Martinez PROF CHEM 8 (BAS METB)on Anion gap [Moles/Vol] 14.4 mmol/L Normal [facility] Comment on above: Performed By: #### D IRCMB, ABID #### [facility] [address] [place] [address] Dr. Caitlin Martinez Calcium [Mass/Vol] 8.4 mg/dL Critically low 8.5-10.1 [facility] Comment on above: Performed By: #### D IRCMB, ABID #### [facility] [address] [place] [address] Dr. Caitlin Martinez Chloride [Moles/Vol] 101 mmol/L Normal 98-107 [facility] Comment on above: Performed By: #### D IRCMB, ABID #### [facility] [address] [place] [address] Dr. Caitlni Martinez CO2 [Moles/Vol] 19.7 mmol/L Critically low 21.0-32.0 [facility] Comment on above: Performed By: #### D IRCMB, ABID #### [facility] [address] [place] [address] Dr. Caitlin Maritnez Creatinine [Mass/Vol] 0.55 mg/dL Normal 0.55-1.02 [facility] Comment on above: Performed By: #### D IRCMB, ABID #### [facility] [address] [address] [address] Caitlin Martinez EGFR-AF [place] >60 Normal >=60 [facility] Comment on above: Performed By: #### D IRCMB, ABID #### [facility] [address] [address] [address] Caitlin Martinez EGFR-NON AF [place] >60 Normal >=60 [facility] Comment on above: Performed By: #### D IRCMB, ABID #### [facility] [address] [place] [address] Dr. Caitlin Martinez Glucose [Mass/Vol] 91 mg/dL Normal 74-106 [facility] Comment on above: Performed By: #### D IRCMB, ABID #### [facility] [address] [place] [address] Dr. Caitlin Martinez Potassium [Moles/Vol] 3.1 mmol/L Critically low 3.5-5.1 [facility] Comment on above: Performed By: #### D IRCMB, ABID #### [facility] [address] [place] [address] Dr. Caitlin Martinez Sodium [Moles/Vol] 132 mmol/L Critically low 136-145 [facility] Comment on above: Performed By: #### D IRCMB, ABID #### [facility] [address] [place] [address] Dr. Caitlin Martinez Urea nitrogen [Mass/Vol] 7.0 mg/dL Normal 7.0-18.0 [facility] Comment on above: Performed By: #### D IRCMB, ABID #### [facility] [address] [place] [address] Dr. Caitlin Martinez Urea nitrogen/Creatinine [Mass ratio] 12.7 mg/mg Normal [facility] Comment on above: Performed By: #### D IRCMB, ABID #### [facility] [address] [address] [address] Caitlin Martinez US PREG ANATOMY SINGLEon [...] BLACKMON Date: 2021-09-28 09:17 Normal [facility] CHEMISTRYOrdered By: SYSTEM SYSTEM on 06-21-2021 [place] [address] m[IU]/mL High 1 - 3 mIU/mL [facility] Remisol XR LUMBAR [...] gas pattern is nonobstructive. There is a pxxahgzz-wr-wklld amount of stool burden. IMPRESSION: No malalignment. No acute compression deformity. Rprajsed-ld-sivzs amount of stool burden. [employer] Workstation ID: [id number] Dictated by: LUBA GARCÍA on [facility] Mar 05, 2020 4:09:51 PM EDT Transcribed by: KELVIN GUADALUPE on [facility] Mar 05, 2020 4:17:18 PM EDT Finalized by: LUBA GARCÍA on [facility] Mar 05, 2020 7:52:11 PM EDT [facility] Comment on above: Order Comment: Injur y/Trauma or Illness?:Illness/Other How long have you had these symptoms (acute/chronic)?:Chronic Reason for exam?:low back pain History of cancer?:n Surgeries, chemotherapy, or radiation?:n Type of Exam?:Initial Additional signs and symptoms?:fibromyalgia XR Lumbar Spine 2-3 Views (S tandard)on 03-05-2020 No malalignment. No acute compression deformity. Mxuantzu-qm-beovm amount of stool burden. [employer] Workstation ID: [id number] [facility] EXAMINATION: XR LUMBAR SPINE 2-3 [...] gas pattern is nonobstructive. There is a mivobpdu-wb-iwrqj amount of stool burden. [facility] Interface, Rad In Jose Luis [...] gas pattern is nonobstructive. There is a goisdfgm-zb-jfoox amount of stool burden. IMPRESSION: No malalignment. No acute compression deformity. Bqqvgofu-sb-vleor amount of stool burden. [employer] Workstation ID: [id number] [facility] CNOVon 10-28-2018 CNOV Office Visit (OLVIN ) SANDY GODINEZ ([id number]) 1995 F Date Time Provider Department 10/28/18 [...] Garcia MD REFERRING PROVIDER: Farrah Garcia MD [address] [facility] [id number] Consult requested for an opinion regarding the [...] TIME: 12:44 PM Referring Provider: FARRAH GARCIA [[id number]] Allergies As of Date: 10/28/2018 (No Known [...] by WARREN RODRIGUEZ MD on 10/29/18 Normal [facility] PROGRESSon 10-28-2018 Protein mass conc HNO ID: [id number] Author: Warren Reddy Esa Service: ? Author Type: Physician Type: Progress Notes Filed: 10/29/2018 3:03 PM Note Text: VASCULAR SURGERY INITIAL CONSULT SERVICE DATE: 10/28/2018 SERVICE TIME: 12:44 PM PRIMARY CARE PHYSICIAN: Farrah Garcia MD REFERRING PROVIDER: Farrah Garcia MD [address] [facility] [phone] Consult requested for an opinion regarding the [...] October 28, 2018 TIME: 12:44 PM Normal [facility] Vital Signs Date Time Vital Sign Value Performing Clinician Cihquis zaragoza 07-19-2023 09:31-0500 Body mass index (BMI) [Ratio] 26.79 kg/m2 [facility] Nurse [facility] 07-19-2023 09:31-0500 Body weight 73.03 kg [facility] Nurse [facility] 07-19-2023 09:31-0500 Diastolic blood pressure 72 mm[Hg] [facility] Nurse [facility] 07-19-2023 09:31-0500 Systolic blood pressure 118 mm[Hg] [facility] Nurse [facility] Encounters Encounter Date Encounter Type Care Provider Facility Start: 01-06-2024 End: 01-06-2024 ambulatory MICHAEL CHAN Not Available Start: 12-23-2023 End: 12-23-2023 ambulatory JOSE MIGUEL JUSTEN Not Available Start: 12-05-2023 End: 12-05-2023 ambulatory JOSE MIGUEL JUSTEN Not Available Start: 11-25-2023 End: 11-25-2023 ambulatory JOSE MIGUEL JUSTEN Not Available Start: 11-12-2023 End: 11-12-2023 ambulatory JOSE MIGUEL JUSTEN Not Available Start: 11-07-2023 End: 11-08-2023 ambulatory JOSE MIGUEL R JUSTEN [facility] Start: 10-15-2023 End: 10-15-2023 ambulatory JOSE MIGUEL [...] Not Available Start: 07-08-2023 ambulatory Royer Layne acility:[facility] Start: 07-02-2023 End: 07-02-2023 ambulatory JOSE MIGUEL [...] 09-28-2021 End: 09-29-[address] JOSE MIGUEL CAMPUAZNO Facility:[facility] Start: 09-16-2021 End: 09-16-2021 ambulatory ILIR JUAREZ Facility:[facility] Start: 06-21-2021 End: 09-19-2021 Recurring Jose Miguel CAMPUZANO [facility] Start: 03-05-2020 End: 03-06-2020 Patient encounter procedure [facility] Start: 03-05-2020 End: 03-05-2020 Subsequent hospital visit by physician [facility] Work Phone: [facility] Comment on above: Chronic low [...] encounter procedure 08/19/2023 11:10 AM EST Routine [facility] [address] [place] [id number] Jose Miguel Campuzano, DO [address] [place] [address] [facility] Start: 07-19-2023 End: 07-19-2024 ABO/Rh ABO/Rh Lab Routine Missed menses Expected: 07/19/2023 (Approximate), Expires: 07/19/2024 [facility] Comment on above: Expected: 07/19/2023 (Approximate), Expires: 07/19/2024 Start: 07-19-2023 End: 07-19-2024 Blood type and Indirect antibody screen panel - Blood Type and screen Lab Routine Missed menses Expected: 07/19/2023 (Approximate), Expires: 07/19/2024 [facility] Work Phone: Comment on above: Expected: 07/19/2023 (Approximate), Expires: 07/19/2024 Start: 07-19-2023 End: 07-19-2024 US Pelvis transvaginal US OB transvaginal Imaging Routine Missed menses Expected: 07/19/2023 (Approximate), Expires: 07/19/2024 [facility] Comment on above: Expected: 07/19/2023 (Approximate), Expires: 07/19/2024 Start: 02-16-2020 Influenza vaccinatio n given Sequential Influenza Vaccine (#1) [facility] Start: 2014 Hepatitis C antibody , confirmatory test Hepatitis C Screening [facility] Start: 08-31-2011 HIV screening HIV Screening [facility] Start: 08-31-2007 Vaccination for [place] papillomavirus HPV Vaccines (1 - 2-dose series) [facility] Start: 08-31-1999 History and physical examination, annual for health maintenance Wellness Visit [facility] Start: 1996 Screening for Chlamy tristan trachomatis Chlamydia Screening [facility] Start: 1996 Screening for malign ant neoplasm of cervix Pap Smear [facility] Start: 1996 Tetanus vaccination Tetanus: Every 1 0yrs [facility] Bacteria identified in Urine by Culture Urine culture Microbiology Routine Missed menses Ordered: 07/19/2023 [facility] Comment on above: Ordered: 07/19/2023 CBC W Auto Different ial panel - Blood CBC and differential Lab Routine Missed menses Ordered: 07/19/2023 [facility] Comment on above: Ordered: 07/19/2023 Hemoglobin A1c measurement Hemoglobin A1c Lab Routine Missed menses Ordered: 07/19/2023 [facility] Comment on above: Ordered: 07/19/2023 Hepatitis B virus knight rface Ag [Presence] in Serum or Plasma by Immunoassay Hepatitis B surface antigen Lab Routine Missed menses Ordered: 07/19/2023 [facility] Comment on above: Ordered: 07/19/2023 Hepatitis C virus Ab [Presence] in Serum or Plasma by Immunoassay Hepatitis C antibody Lab Routine Missed menses Ordered: 07/19/2023 [facility] Comment on above: Ordered: 07/19/2023 HIV-1/HIV-2 antigen/antibody combination immunoassay HIV-1 and HIV-2 antibodies Lab Routine Missed menses Ordered: 07/19/2023 [facility] Comment on above: Ordered: 07/19/2023 Reagin Ab [Presence] in Serum by RPR RPR Lab Routine Missed menses Ordered: 07/19/2023 [facility] Comment on above: Ordered: 07/19/2023 Rubella antibody, IgG Rubella an tibody, IgG Lab Routine Missed menses Ordered: 07/19/2023 [facility] Comment on above: Ordered: 07/19/2023 Payers Date Payer Category Payer Self-pay 2022 Medicaid [employer] [place] [id number] 2022-Present [address] [place] [address] [id number] 1995 Unknown [id number] 2.16.840.1.019993.3.579.2.903 1996 Unknown [id number] 2.16.840.1.713958.3.579.2.593 1996 Unknown [id number] 2.16.840.1.089687.3.579.2.593 1996 Unknown [id number] 2.16.840.1.301585.3.579.2.593 1996 Unknown [id number] 2.16.840.1.505078.3.579.2.593 1996 Unknown [id number] 2.16.840.1.142669.3.579.2.593 1996 Unknown [id number] 2.16.840.1.260877.3.579.2.593 1996 Unknown [id number] 2.16.840.1.422025.3.579.2.593 1996 Unknown [id number] 2.16.840.1.690296.3.579.2.593 1996 Unknown [id number] 2.16.840.1.535175.3.579.2.593 1996 Unknown [id number] 2.16.840.1.356252.3.579.2.593 1996 Unknown [id number] 2.16.840.1.609913.3.579.2.593 1996 Unknown [id number] 2.16.840.1.020874.3.579.2.593 1996 Unknown [id number] 2.16.840.1.654515.3.579.2.593 1996 Unknown [id number] 2.16.840.1.330733.3.579.2.593 1996 Unknown [id number] 2.16.840.1.599204.3.579.2.593 1996 Unknown [id number] 2.16.840.1.555693.3.579.2.593 1996 Unknown [id number] 2.16.840.1.908244.3.579.2.593 1996 Unknown [id number] 2.16.840.1.814328.3.579.2.593 1996 Unknown [id number] 2.16.840.1.413869.3.579.2.593 1996 Unknown [id number] 2.16.840.1.661546.3.579.2.593 1996 Unknown [id number] 2.16.840.1.256659.3.579.2.593 1996 Unknown [id number] 2.16.840.1.488962.3.579.2.1286 1996 Unknown [id number] 2.16.840.1.788794.3.579.2.1286 1996 Unknown [id number] 2.16.840.1.366490.3.579.2.1259 1996 Unknown [id number] 2.16.840.1.695101.3.579.2.1259 1996 Unknown [id number] 2.16.840.1.456070.3.579.2.1259 1996 Unknown [id number] 2.16.840.1.830319.3.579.2.9 1996 Unknown [id number] 2.16.840.1.989368.3.579.2.9 1996 Unknown [id number] 2.16.840.1.982185.3.579.2.1258 1996 Unknown [id number] 2.16.840.1.734203.3.579.2.1258 1996 Unknown [id number] 2.16.840.1.426058.3.579.2.1258 1996 Unknown [id number] 2.16.840.1.045881.3.579.2.1258 1996 Unknown [id number] 2.16.840.1.587926.3.579.2.1259 1959 Unknown [id number] 1959 Unknown [id number] Unknown COMMERCIAL COMME RCIAL MISCELLANEOUS [id number] Effective for all dates [id number] 1.2.840.208194.1.13.385.2.7.3. [id number] Unknown [id number] Unknown [id number] 2.16.840.1.549499.3.579.2.531 Social History Date Type Detail Facility Tobacco smoking stat [facility] Unknown if ever smoked [facility] Sex Assigned At Not on file [facility] Start: 12-07-2022 Sex Assigned At [facility] Start: 12-07-2022 Tobacco smoking status NHIS Never smoked tobacco [facility] Start: 07-19-2023 Alcohol intake Current drinker of alcohol (finding) [facility] Start: 12-07-2022 History of Social function [facility] Start: 12-07-2022 Alcohol Comment 1-2 drinks less than monthly in the past year [facility] Start: 05-31-2023 [facility] Start: 1995 Sex Assigned At Female [facility] Start: 11-29-2022 Gender identity Identifies as female gender (finding) [facility] Start: 11-29-2022 Sexual orientation Heterosexual (finding) [facility] History of Present illness Narrative [...] CURETTAGE 2018 DE TONSILLECTOMY & ADENOIDECTOMY AGE 13/> 2015 WISDOM [...] sent for nausea to pharmacy. Pt desires Chamisal 21 and understands to have it done at 10 weeks along w/her labs. Follow Up: Patient is to have labs drawn at directed and return to office for initial OB appointment with provider. Patient may call office as needed with any concerns or questions. Nurse Visit Completed by: Cori Daniel MA documented in this encounter [facility] Clinical Note 01-16-2022 Note Date & Type [...] Cecelia FOOTE Date: 2022-01-16 21:33 [facility] Clinical Note 01-16-2022 Note Date & [...] Cecelia FOOTE Date: 2022-01-16 21:33 [facility] Clinical Note 01-15-2022 Note Date & [...] by: IGOR DIAZ Date: 2022-01-15 10:10 [facility] Evaluation + Plan note Note Date & Type Note Facility Evaluation + Plan note No data available for this section [facility] Evaluation note Note Date & Type Note Facility Evaluation note Diagnosis Missed menses Nausea Nausea alone documented in this encounter [facility] Discharge instructions Note Date & Type Note Facility Hospital Discharge instructions No data available for this section [facility] Summary Purpose Family History No Family History Records FoundNo Family History Records FoundNo Family History Records FoundNo Family History Records FoundNo Family History Records FoundNo Family History Records FoundNo Family History Records Found Advance Directives No Advanced Directives Records FoundDocuments on File Type Date Recorded 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 Advance Directives and Livin g Will 03/05/2020 2:18 PM Assessments Diagnosis Chronic low back pain, unspecified back pain laterality, unspecified whether sciatica present Additional Source Comments INFORMATION SOURCE (unrecogn ized section and content) DATE CREATED AUTHOR 11/08/2018 [facility] DATE CREATED AUTHOR AUTHOR'S ORGANIZ ATION 03/21/2020 [facility] DATE CREATED AUTHOR AUTHOR'S ORGANIZ ATION 08/04/2022 [facility] DATE CREATED AUTHOR AUTHOR'S ORGANIZ ATION 09/06/2022 [facility] DATE CREATED AUTHOR AUTHOR'S ORGANIZ ATION 09/17/2023 [facility] DATE CREATED AUTHOR AUTHOR'S ORGANIZ ATION 11/09/2023 [facility] DATE CREATED AUTHOR AUTHOR'S ORGANIZ ATION 01/09/2024 [facility] Reason for Visit (unrecogniz ed section and [...] BE BASED ON THE PRIMARY CLINICAL RECORDS. [facility] [email or web address] [facility] provides no warranty or guarantee of the accuracy or completeness of information in this document.
[2024-01-09 10:43] VITALS: BP 128/84; PULSE 106
== END 2024-01-09 11:35 ==
LOC: FBCO 07:18 → FBC 10:36
PROVIDERS: PCP Nurse Practitioner Family; Visit Provider Obstetrics & Gynecology
DX: O43.899 Other placental disorders, unspecified trimester (principal)
CPT/HCPCS: 59025

== ENCOUNTER 2024-01-11 20:30 | Observation (INO) | payer OTHER, SELFPAY ==
--- OUTSIDE RECORDS SUMMARY | 2024-01-11 20:35 | XMS_ITS | CCD ---
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 Name Role Phone Farrah Garcia Primary [...] Unavailable MISC, DR LORENZANA Primary Care Unavailable DAMINA, DR LYLA Sanchez Consulting Unavailable DAMIAN, DR [...] DUARTE Attending Unavailable LAVELLE, DUARTE Consulting Unavailable LAVELEL, DUARTE Primary Care Unavailable LAVELLE, DUARTE Admitting [...] JUSTEN, JOSE MIGUEL R Referring Unavailable BERT RZD Attending Unavailable JUSTEN, JOSE MIGUEL R Referring [...] (1 source) Desonide Drug Allergy 9 [facility] (2 sources) Wound Dressing Adhesive Drug [...] 02-15-2022 Episodic Other aftercare (1 source) Other intermediate (current) 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; 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: [OTH PENITENTIARY CURRENT DRUG THERAPY] Onset: 02-05-2022 Episodic Other [...] WITH AUTO DIFFon BASOPHILS ABSOLUTE AUTO 0.1 [facility] Basophils/100 WBC (Bld) 0.7 % 0.2 - 2.0 % [facility] Eosinophils/100 WBC (Bld) 2.6 % 0.9 - 7.0 % [facility] Erythrocyte distribution width (RBC) [Ratio] 13.4 % 11.0 - 15.0 % [facility] Hematocrit (Bld) [Volume fraction] 39.0 % 36.0 - 48.0 % [facility] Hemoglobin (Bld) [Mass/Vol] 12.8 g/dL 12.0 - 16.0 g/dL [facility] IMMATURE GRANULOCYTES ABS AUTO 0.01 [facility] Immature granulocytes/100 WBC (Bld) 0.1 % 0.0 - 0.5 % [facility] LYMPHOCYTES ABSOLUTE AUTO 2.2 [facility] Lymphocytes/100 WBC (Bld) 26.1 % 20.5 - 60.0 % [facility] MCH (RBC) [Entitic mass] 28.6 pg 26.7 - 34.0 pg [facility] MCHC (RBC) [Mass/Vol] 32.8 g/dL 29.9 - 35.2 g/dL [facility] MCV (RBC) [Entitic vol] 87.2 fL 81.0 - 99.0 fL [facility] MONOCYTES ABSOLUTE AUTO 0.5 [facility] Monocytes/100 WBC (Bld) 5.7 % 1.7 - 12.0 % [facility] NEUTROPHILS ABSOLUTE AUTO 5.5 [facility] Neutrophils/100 WBC (Bld) 64.8 % 43.0 - 75.0 % [facility] Platelet mean volume (Bld) [Entitic vol] 10.1 fL 9.5 - 13.5 fL [facility] TBH EO # 0.2 [facility] PLT 340 [facility] RBC 4.47 [facility] WBC 8.4 [facility] HCG ( test) Ql (U)o n 07-19-2023 Interpretation and review of laboratory results Abnormal [facility] Preg Test, Ur Positive [facility] Urinalysis macro (dipstick) panel (U)on 07-19-2023 Bilirubin, UA Negative Negative - 4(70) +++ mg/dL [facility] Blood, UA Positive Negative - 50 Anselmo/mcL [facility] Comment on above: moderate Clarity, UA Clear [facility] Color, UA [place] [facility] Glucose, UA Negative Negative - 1999(110) ++++ mg/dL [facility] Interpretation and review of laboratory results Abnormal [facility] Ketones, UA Positive Negative - 160(16) ++++ mg/dL [facility] Comment on above: trace Leukocytes, UA Positive Negative - 500+++ Monik/mcL [facility] Comment on above: small Nitrite, UA Negative Negative - Positive [facility] pH, UA 6.0 5 - 9 [facility] Protein, UA Positive Negative - 1999(20) ++++ mg/dL [facility] Comment on above: 30 Spec Grav, UA 1.030 1 - 1.03 [facility] Urobilinogen, UA 1.0 0.2 - 12 mg/dL [facility] In office Testingon 09-07-19 23 In office Testing [id number]# 1.00CD:127 Normal [facility] CBC AUTO DIFFon 07-30-2022 BASO # 0.1 103/ul Normal 0.0-0.1 [facility] Comment on above: Performed By: #### U RCX #### [facility] [address] [place] [address] Dr. Caitlin Martinez Basophils/100 WBC (Bld) 1.1 % Normal 0.2-2.0 [facility] Comment on above: Performed By: #### U RCX #### [facility] [address] [place] [address] Dr. Caitlin Martinez EO # 0.3 103/ul Normal 0.0-0.7 [facility] Comment on above: Performed By: #### U RCX #### [facility] [address] [place] [address] Dr. Caitlin Martinez Eosinophils/100 WBC (Bld) 4.7 % Normal 0.9-7.0 [facility] Comment on above: Performed By: #### U RCX #### [facility] [address] [place] [address] Dr. Caitlin Martinez Erythrocyte distribution width (RBC) [Ratio] 14.7 % Normal 11.0-15.0 [facility] Comment on above: Performed By: #### U RCX #### [facility] [address] [place] [address] Dr. Caitlin Martinez Hematocrit (Bld) [Volume fraction] 39.3 % Normal 36.0-48.0 [facility] Comment on above: Performed By: #### U RCX #### [facility] [address] [place] [address] Dr. Caitlin Martinez Hemoglobin (Bld) [Mass/Vol] 12.7 g/dL Normal 12.0-16.0 [facility] Comment on above: Performed By: #### U RCX #### [facility] [address] [place] [address] Dr. Caitlin Martinez IG # 0.02 10e3/ul Normal 0.00-0.03 [facility] Comment on above: Performed By: #### U RCX #### [facility] [address] [place] [address] Dr. Caitlin Martinez IG % 0.3 % Normal 0.0-0.5 [facility] Comment on above: Performed By: #### U RCX #### [facility] [address] [place] [address] Dr. Caitlin Martinez LYMPH # 2.5 103/ul Normal 1.2-3.8 [facility] Comment on above: Performed By: #### U RCX #### [facility] [address] [place] [address] Dr. Caitlin Martinez Lymphocytes/100 WBC (Bld) 34.5 % Normal 20.5-60.0 [facility] Comment on above: Performed By: #### U RCX #### [facility] [address] [place] [address] Dr. Caitlin Martinez MANUAL DIFF REQ NO Normal [facility] Comment on above: Performed By: #### U RCX #### [facility] [address] [place] [address] Dr. Caitlin Martinez MCH (RBC) [Entitic mass] 27.3 pg Normal 26.7-34.0 [facility] Comment on above: Performed By: #### U RCX #### [facility] [address] [place] [address] Dr. Caitlin Martinez MCHC (RBC) [Mass/Vol] 32.3 g/dL Normal 29.9-35.2 [facility] Comment on above: Performed By: #### U RCX #### [facility] [address] [place] [address] Dr. Caitlin Martinez MCV (RBC) [Entitic vol] 84.5 fL Normal 81.0-99.0 [facility] Comment on above: Performed By: #### U RCX #### [facility] [address] [place] [address] Dr. Caitlin Martinez MONO # 0.5 103/ul Normal 0.3-0.8 [facility] Comment on above: Performed By: #### U RCX #### [facility] [address] [place] [address] Dr. Caitlin Martinez Monocytes/100 WBC (Bld) 7.3 % Normal 1.7-12.0 [facility] Comment on above: Performed By: #### U RCX #### [facility] [address] [place] [address] Dr. Caitlin Martinez NEUT # 3.8 103/ul Normal 1.4-6.5 [facility] Comment on above: Performed By: #### U RCX #### [facility] [address] [place] [address] Dr. Caitlin Martinez Neutrophils/100 WBC (Bld) 52.1 % Normal 43.0-75.0 [facility] Comment on above: Performed By: #### U RCX #### [facility] [address] [place] [address] Dr. Caitlin Martinez Platelet mean volume (Bld) [Entitic vol] 9.0 fL Critically low 9.5-13.5 [facility] Comment on above: Performed By: #### U RCX #### [facility] [address] [place] [address] Dr. Caitlin Martinez PLT 368 103/ul Normal 150-450 [facility] Comment on above: Performed By: #### U RCX #### [facility] [address] [place] [address] Dr. Caitlin Martinez RBC 4.65 106/ul Normal 4.20-5.40 [facility] Comment on above: Performed By: #### U RCX #### [facility] [address] [place] [address] Dr. Caitlin Martinez WBC 7.2 103/ul Normal 4.0-11.0 [facility] Comment on above: Performed By: #### U RCX #### [facility] [address] [place] [address] Dr. Caitlin Martinez IRONon 07-30-2022 Iron [Mass/Vol] 43.0 ug/dL Critically low 50.0-170.0 [facility] Comment on above: Performed By: #### U RCX #### [facility] [address] [place] [address] Dr. Caitlin Martinez PAP ACOG PANEL 2: 22 to 30on 07-30-[address] [facility] Comment on above: Performed By: #### U RCX #### [facility] [address] [place] [address] Dr. Caitlin Martinez Age Gdln ACOG Testing - [facility] Comment on above: Performed By: #### U RCX #### [facility] [address] [place] [address] Dr. Caitlin Martinez DIAGNOSIS: Comment [facility] Comment on above: Result Comment: NEGA TIVE FOR INTRAEPITHELIAL LESION OR MALIGNANCY. Performed By: #### U RCX #### [facility] [address] [place] [address] Dr. Caitlin Martinez Methodology: Comment [facility] Comment on above: Result Comment: This liquid based ThinPrep(R) pap test was screened with the use of an image guided system. Performed By: #### U RCX #### [facility] [address] [place] [address] Dr. Caitlin Martinez Note: Comment [facility] Comment on above: Result Comment: The Pap smear is a screening test designed to aid in the detection of premalignant and malignant conditions of the uterine cervix. It is not a diagnostic procedure and should not be used as the sole means of detecting cervical cancer. Both false-positive and false-negative reports do occur. . Performed By: #### U RCX #### [facility] [address] [place] [address] Dr. Caitlin Martinez Performed by: Comment [facility] Comment on above: Result Comment: Bhavna Cormier, Ct Manager (ASCP) Performed By: #### U RCX #### [facility] [address] [place] [address] Dr. Caitlin Martinez Reflex Criteria: Comment [facility] Comment on above: Result Comment: The HPV DNA reflex criteria were not met with this specimen result therefore, no HPV testing was performed. . Performed By: #### U RCX #### [facility] [address] [place] [address] Dr. Caitlin Martinez Specimen adequacy: Comment Normal [facility] Comment on above: Result Comment: Sati sfactory for evaluation. Endocervical and/or squamous metaplastic cells (endocervical component) are present. Performed By: #### U RCX #### [facility] [address] [place] [address] Dr. Caitlin Martinez INSULINon 04-19-2022 Insulin 9.1 uIU/mL Normal 2.6-24.9 [facility] Comment on above: Performed By: #### I HORACIO #### [facility] [address] [place] [address] Dr. Caitlin Martinez CBC AUTO DIFFon 04-18-2022 BASO # 0.1 103/ul Normal 0.0-0.1 [facility] Comment on above: Performed By: #### U RCX #### [facility] [address] [place] [address] Dr. Caitlin Martinez Basophils/100 WBC (Bld) 1.0 % Normal 0.2-2.0 [facility] Comment on above: Performed By: #### U RCX #### [facility] [address] [place] [address] Dr. Caitlin Martinez EO # 0.3 103/ul Normal 0.0-0.7 [facility] Comment on above: Performed By: #### U RCX #### [facility] [address] [place] [address] Dr. Caitlin Martinez Eosinophils/100 WBC (Bld) 4.1 % Normal 0.9-7.0 [facility] Comment on above: Performed By: #### U RCX #### [facility] [address] [place] [address] Dr. Caitlin Martinez Erythrocyte distribution width (RBC) [Ratio] 16.0 % Critically high 11.0-15.0 [facility] Comment on above: Performed By: #### U RCX #### [facility] [address] [address] [address] Caitlin Martinez Hematocrit (Bld) [Volume fraction] 35.7 % Critically low 36.0-48.0 [facility] Comment on above: Performed By: #### U RCX #### [facility] [address] [place] [address] Dr. Caitlin Martinez Hemoglobin (Bld) [Mass/Vol] 10.9 g/dL Critically low 12.0-16.0 [facility] Comment on above: Performed By: #### U RCX #### [facility] [address] [address] [address] Caitlin Martinez IG # 0.07 10e3/ul Critically high 0.00-0.03 [facility] Comment on above: Performed By: #### U RCX #### [facility] [address] [place] [address] Dr. Caitlin Martinez IG % 1.0 % Critically high 0.0-0.5 [facility] Comment on above: Performed By: #### U RCX #### [facility] [address] [address] [address] Caitlin Martinez LYMPH # 2.3 103/ul Normal 1.2-3.8 [facility] Comment on above: Performed By: #### U RCX #### [facility] [address] [place] [address] Dr. Caitlin Martinez Lymphocytes/100 WBC (Bld) 31.4 % Normal 20.5-60.0 [facility] Comment on above: Performed By: #### U RCX #### [facility] [address] [place] [address] Dr. Caitlin Martinez MANUAL DIFF REQ NO Normal [facility] Comment on above: Performed By: #### U RCX #### [facility] [address] [place] [address] Dr. Caitlin Martinez MCH (RBC) [Entitic mass] 24.8 pg Critically low 26.7-34.0 [facility] Comment on above: Performed By: #### U RCX #### [facility] [address] [address] [address] Caitlin Martinez MCHC (RBC) [Mass/Vol] 30.5 g/dL Normal 29.9-35.2 [facility] Comment on above: Performed By: #### U RCX #### [facility] [address] [address] [address] Caitlin Martinez MCV (RBC) [Entitic vol] 81.1 fL Normal 81.0-99.0 [facility] Comment on above: Performed By: #### U RCX #### [facility] [address] [place] [address] Dr. Caitlin Martinez MONO # 0.5 103/ul Normal 0.3-0.8 [facility] Comment on above: Performed By: #### U RCX #### [facility] [address] [place] [address] Dr. Caitlin Martinez Monocytes/100 WBC (Bld) 6.6 % Normal 1.7-12.0 [facility] Comment on above: Performed By: #### U RCX #### [facility] [address] [place] [address] Dr. Caitlin Martinez NEUT # 4.1 103/ul Normal 1.4-6.5 [facility] Comment on above: Performed By: #### U RCX #### [facility] [address] [place] [address] Dr. Caitlin Martinez Neutrophils/100 WBC (Bld) 55.9 % Normal 43.0-75.0 [facility] Comment on above: Performed By: #### U RCX #### [facility] [address] [place] [address] Dr. Caitlin Martinez Platelet mean volume (Bld) [Entitic vol] 9.4 fL Critically low 9.5-13.5 [facility] Comment on above: Performed By: #### U RCX #### [facility] [address] [place] [address] Dr. Caitlin Martinez PLT 369 103/ul Normal 150-450 [facility] Comment on above: Performed By: #### U RCX #### [facility] [address] [address] [address] Caitlin Martienz RBC 4.40 106/ul Normal 4.20-5.40 [facility] Comment on above: Performed By: #### U RCX #### [facility] [address] [address] [address] Caitlin Martinez WBC 7.3 103/ul Normal 4.0-11.0 [facility] Comment on above: Performed By: #### U RCX #### [facility] [address] [address] [address] Caitlin Martinez FREE THYROXINE INDEX T7on FTI 2.20 Normal 1.30-4.50 [facility] Comment on above: Performed By: #### I HORACIO #### [facility] [address] [place] [address] Dr. Caitlin Martinez T3U 29.0 % Critically low 30.0-39.0 [facility] Comment on above: Performed By: #### I HORACIO #### [facility] [address] [address] [address] Caitlin Martinez T4 [Mass/Vol] 7.60 ug/dL Normal 4.80-13.90 [facility] Comment on above: Performed By: #### I HORACIO #### [facility] [address] [place] [address] Dr. Caitlin Martinez GLYCOHEMOGLOBIN A1Con 2021 ADA RECOMMENDATION SEE BELOW Normal [facility] Comment on above: Result Comment: ADA RECOMMENDED LIMIT 4.0 - 6.0 ADA THERAPEUTIC TARGET < 7.0 ACTION SUGGESTED > 7.0 Performed By: #### U RCX #### [facility] [address] [address] [address] Caitlin Martinez Glucose [Mass/Vol] 97 mg/dL Normal [facility] Comment on above: Performed By: #### U RCX #### [facility] [address] [address] [address] Caitlin Martinez HbA1c (Bld) [Mass fraction] 5.0 % Normal 4.5-6.2 [facility] Comment on above: Performed By: #### U RCX #### [facility] [address] [address] [address] Caitlin Martinez IRONon 04-18-2022 Iron [Mass/Vol] 35.0 ug/dL Critically low 50.0-170.0 [facility] Comment on above: Performed By: #### I HORACIO #### [facility] [address] [address] [address] Caitlin Martinez LIPID PROFILEon 04-18-2022 CHOL-HDL RATIO NORM SEE BELOW Normal [facility] Comment on above: Result Comment: 3.3 - 4.4 LOW RISK 4.4 - 7.1 AVERAGE RISK 7.1 - 11.0 MODERATE RISK >11.0 HIGH RISK Performed By: #### I HORACIO #### [facility] [address] [place] [address] Dr. Caitlin Martinez Cholesterol [Mass/Vol] 221 mg/dL Critically high <=200 [facility] Comment on above: Performed By: #### I HORACIO #### [facility] [address] [place] [address] Dr. Caitlin Martinez Cholesterol in HDL [Mass/Vol] 67 mg/dL Critically high 40-60 [facility] Comment on above: Performed By: #### I HORACIO #### [facility] [address] [place] [address] Dr. Caitlin Martinez Cholesterol in LDL [Mass/Vol] 142.4 mg/dL Normal [facility] Comment on above: Performed By: #### I HORACIO #### [facility] [address] [place] [address] Dr. Caitlin Martinez Cholesterol.total/Cho lesterol in HDL [Mass ratio] 3.3 {ratio} Normal [facility] Comment on above: Performed By: #### I HORACIO #### [facility] [address] [place] [address] Dr. Caitlin Martinez HDL NORMAL > or = 60 mg/dl - LO W CARDIOVASCULAR RISK <40 mg/dl - HIGH CARDIOVASCULAR RISK Normal [facility] Comment on above: Performed By: #### I HORACIO #### [facility] [address] [address] [address] Caitlin Martinez LDL CALC NORMAL SEE BELOW Normal [facility] Comment on above: Result Comment: <100 mg/dl OPTIMAL 100 - 129 mg/dl NEAR OR ABOVE OPTIMAL 130 - 159 mg/dl BORDERLINE HIGH 160 - 189 mg/dl HIGH >190 mg/dl VERY HIGH Performed By: #### I HORACIO #### [facility] [address] [address] [address] Caitlin Martinez Triglyceride [Mass/Vol] 58 mg/dL Normal <=150 [facility] Comment on above: Performed By: #### I HORACIO #### [facility] [address] [address] [address] Caitlin Martinez VLDL CALC 11.6 mg/dL Normal [facility] Comment on above: Performed By: #### I HORACIO #### [facility] [address] [place] [address] Dr. Caitlin Martinez PROF 14(COMP METB)on 022 Albumin [Mass/Vol] 3.8 g/dL Normal 3.4-5.0 [facility] Comment on above: Performed By: #### I HORACIO #### [facility] [address] [place] [address] Dr. Caitlin Martinez Albumin/Globulin [Mass ratio] 1.1 {ratio} Normal [facility] Comment on above: Performed By: #### I HORACIO #### [facility] [address] [place] [address] Dr. Caitlin Martinez ALP [Catalytic activity/Vol] 132 U/L Critically high 46-116 [facility] Comment on above: Performed By: #### I HORACIO #### [facility] [address] [address] [address] Caitlin Martinez ALT [Catalytic activity/Vol] 55 U/L Normal 14-59 [facility] Comment on above: Performed By: #### I HORACIO #### [facility] [address] [place] [address] Dr. Caitlin Martinez Anion gap [Moles/Vol] 12.6 mmol/L Normal [facility] Comment on above: Performed By: #### I HORACIO #### [facility] [address] [address] [address] Caitlin Martinez AST [Catalytic activity/Vol] 27 U/L Normal 15-37 [facility] Comment on above: Performed By: #### I HORACIO #### [facility] [address] [address] [address] Caitlin Martinez Bilirubin [Mass/Vol] 0.6 mg/dL Normal 0.2-1.0 [facility] Comment on above: Performed By: #### I HORACIO #### [facility] [address] [address] [address] Caitlin Martinez Calcium [Mass/Vol] 9.1 mg/dL Normal 8.5-10.1 [facility] Comment on above: Performed By: #### I HORACIO #### [facility] [address] [place] [address] Dr. Caitlin Martniez Chloride [Moles/Vol] 106 mmol/L Normal 98-107 [facility] Comment on above: Performed By: #### I HORACIO #### [facility] [address] [address] [address] Caitlin Martinez CO2 [Moles/Vol] 26.5 mmol/L Normal 21.0-32.0 [facility] Comment on above: Performed By: #### I HORACIO #### [facility] [address] [place] [address] Dr. Caitlin Martinez Creatinine [Mass/Vol] 0.63 mg/dL Normal 0.55-1.02 [facility] Comment on above: Performed By: #### I HORACIO #### [facility] [address] [address] [address] Caitlin Martinez EGFR-AF ZIMBABWEAN >60 Normal >=60 [facility] Comment on above: Performed By: #### I HORACIO #### [facility] [address] [address] [address] Caitlin Martinez EGFR-NON AF ZIMBABWEAN >60 Normal >=60 [facility] Comment on above: Performed By: #### I HORACIO #### [facility] [address] [address] [address] Caitlin Martinez Globulin (S) [Mass/Vol] 3.6 g/dL Normal [facility] Comment on above: Performed By: #### I HORACIO #### [facility] [address] [address] [address] Caitlin Martinez Glucose [Mass/Vol] 98 mg/dL Normal 74-106 [facility] Comment on above: Performed By: #### I HORACIO #### [facility] [address] [address] [address] Caitlin Martinez Potassium [Moles/Vol] 4.1 mmol/L Normal 3.5-5.1 [facility] Comment on above: Performed By: #### I HORACIO #### [facility] [address] [place] [address] Dr. Caitlin Martinez Protein [Mass/Vol] 7.4 g/dL Normal 6.4-8.2 [facility] Comment on above: Performed By: #### I HORACIO #### [facility] [address] [place] [address] Dr. Caitlin Martinez Sodium [Moles/Vol] 141 mmol/L Normal 136-145 [facility] Comment on above: Performed By: #### I HORACIO #### [facility] [address] [place] [address] Dr. Caitlin Martinez Urea nitrogen [Mass/Vol] 9.0 mg/dL Normal 7.0-18.0 [facility] Comment on above: Performed By: #### I HORACIO #### [facility] [address] [place] [address] Dr. Caitlin Martinez Urea nitrogen/Creatinine [Mass ratio] 14.3 mg/mg Normal [facility] Comment on above: Performed By: #### I HORACIO #### [facility] [address] [place] [address] Dr. Caitlin Martinez TSHon 04-18-2022 TSH 1.349 uIU/mL Normal 0.358-3.740 [facility] Comment on above: Performed By: #### I HORACIO #### [facility] [address] [place] [address] Dr. Caitlin Martinez ANTIBODY ID PANELon 02-15-20 22 ANTIBODY ID PANEL Antibody ID Anti-D Blood Bank Notes most likely due to Rhogam given on 12/01/[address] [facility] Comment on above: Performed By: #### D IRCMB, ABID #### [facility] [address] [place] [address] Dr. Caitlin Martinez CTA CHEST WO W [...] by: GAGANDEEP WHEELER Date: 2022-02-10 22:[address] [facility] CBC AUTO DIFFon 02-10-2022 BASO # 0.1 103/ul Normal 0.0-0.1 [facility] Comment on above: Performed By: #### C BC #### [facility] [address] [place] [address] Dr. Caitlin Martinez Basophils/100 WBC (Bld) 0.4 % Normal 0.2-2.0 [facility] Comment on above: Performed By: #### C BC #### [facility] [address] [place] [address] Dr. Caitlin Martinez EO # 0.5 103/ul Normal 0.0-0.7 [facility] Comment on above: Performed By: #### C BC #### [facility] [address] [place] [address] Dr. Caitlin Martinez Eosinophils/100 WBC (Bld) 4.2 % Normal 0.9-7.0 [facility] Comment on above: Performed By: #### C BC #### [facility] [address] [place] [address] Dr. Caitlin Martinez Erythrocyte distribution width (RBC) [Ratio] 14.7 % Normal 11.0-15.0 [facility] Comment on above: Performed By: #### C BC #### [facility] [address] [place] [address] Dr. Caitlin Martinez Hematocrit (Bld) [Volume fraction] 31.1 % Critically low 36.0-48.0 [facility] Comment on above: Performed By: #### C BC #### [facility] [address] [place] [address] Dr. Caitlin Martinez Hemoglobin (Bld) [Mass/Vol] 9.6 g/dL Critically low 12.0-16.0 [facility] Comment on above: Performed By: #### C BC #### [facility] [address] [place] [address] Dr. Caitlin Martinez IG # 0.28 10e3/ul Critically high 0.00-0.03 [facility] Comment on above: Performed By: #### C BC #### [facility] [address] [place] [address] Dr. Caitlin Martinez IG % 2.3 % Critically high 0.0-0.5 [facility] Comment on above: Performed By: #### C BC #### [facility] [address] [place] [address] Dr. Caitlin Martinez LYMPH # 3.3 103/ul Normal 1.2-3.8 [facility] Comment on above: Performed By: #### C BC #### [facility] [address] [place] [address] Dr. Caitlin Martinez Lymphocytes/100 WBC (Bld) 26.9 % Normal 20.5-60.0 [facility] Comment on above: Performed By: #### C BC #### [facility] [address] [place] [address] Dr. Caitlin Martinez MANUAL DIFF REQ NO Normal [facility] Comment on above: Performed By: #### C BC #### [facility] [address] [place] [address] Dr. Caitlin Martinez MCH (RBC) [Entitic mass] 26.2 pg Critically low 26.7-34.0 [facility] Comment on above: Performed By: #### C BC #### [facility] [address] [place] [address] Dr. Caitlin Martinez MCHC (RBC) [Mass/Vol] 30.9 g/dL Normal 29.9-35.2 [facility] Comment on above: Performed By: #### C BC #### [facility] [address] [place] [address] Dr. Caitlin Martinez MCV (RBC) [Entitic vol] 84.7 fL Normal 81.0-99.0 [facility] Comment on above: Performed By: #### C BC #### [facility] [address] [place] [address] Dr. Caitlin Martinez MONO # 1.1 103/ul Critically high 0.3-0.8 [facility] Comment on above: Performed By: #### C BC #### [facility] [address] [place] [address] Dr. Caitlin Martinez Monocytes/100 WBC (Bld) 8.7 % Normal 1.7-12.0 [facility] Comment on above: Performed By: #### C BC #### [facility] [address] [place] [address] Dr. Caitlin Martinez NEUT # 7.0 103/ul Critically high 1.4-6.5 [facility] Comment on above: Performed By: #### C BC #### [facility] [address] [place] [address] Dr. Caitlin Martinez Neutrophils/100 WBC (Bld) 57.5 % Normal 43.0-75.0 [facility] Comment on above: Performed By: #### C BC #### [facility] [address] [place] [address] Dr. Caitlin Martinez Platelet mean volume (Bld) [Entitic vol] 9.1 fL Critically low 9.5-13.5 [facility] Comment on above: Performed By: #### C BC #### [facility] [address] [place] [address] Dr. Caitlin Martinez PLT 437 103/ul Normal 150-450 [facility] Comment on above: Performed By: #### C BC #### [facility] [address] [place] [address] Dr. Caitlin Martinez RBC 3.67 106/ul Critically low 4.20-5.40 [facility] Comment on above: Performed By: #### C BC #### [facility] [address] [place] [address] Dr. Caitlin Martinez WBC 12.3 103/ul Critically high 4.0-11.0 [facility] Comment on above: Performed By: #### C BC #### [facility] [address] [place] [address] Dr. Caitlin Martinez Covid-19 PCR ([facility])on 01-16 SARS-CoV-2 (COVID-19) RNA JONATAN+probe Ql (Unsp spec) Not detected Normal NOT DETECTED [facility] Comment on above: Result Comment: When diagnostic [...] for this test is supported by the [employer]'s declaration that [...] used). Performed By: #### C VDTBH #### [facility] [address] [place] [address] Dr. Caitlin Martinez PROF 14(COMP METB)on 022 Albumin [Mass/Vol] 2.1 g/dL Critically low 3.4-5.0 [facility] Comment on above: Performed By: #### U RCX #### [facility] [address] [place] [address] Dr. Caitlin Martinez Albumin/Globulin [Mass ratio] 0.5 {ratio} Normal [facility] Comment on above: Performed By: #### U RCX #### [facility] [address] [place] [address] Dr. Caitlin Martinez ALP [Catalytic activity/Vol] 202 U/L Critically high 46-116 [facility] Comment on above: Performed By: #### U RCX #### [facility] [address] [place] [address] Dr. Caitlin Martinez ALT [Catalytic activity/Vol] 20 U/L Normal 14-59 [facility] Comment on above: Performed By: #### U RCX #### [facility] [address] [place] [address] Dr. Caitlin Martinez Anion gap [Moles/Vol] 11.6 mmol/L Normal [facility] Comment on above: Performed By: #### U RCX #### [facility] [address] [place] [address] Dr. Caitlin Martinez AST [Catalytic activity/Vol] 17 U/L Normal 15-37 [facility] Comment on above: Performed By: #### U RCX #### [facility] [address] [place] [address] Dr. Caitlin Martinez Bilirubin [Mass/Vol] 0.3 mg/dL Normal 0.2-1.0 [facility] Comment on above: Performed By: #### U RCX #### [facility] [address] [place] [address] Dr. Caitlin Martinez Calcium [Mass/Vol] 9.2 mg/dL Normal 8.5-10.1 [facility] Comment on above: Performed By: #### U RCX #### [facility] [address] [address] [address] Caitlin Martinez Chloride [Moles/Vol] 104 mmol/L Normal 98-107 [facility] Comment on above: Performed By: #### U RCX #### [facility] [address] [address] [address] Caitlin Martinez CO2 [Moles/Vol] 26.9 mmol/L Normal 21.0-32.0 [facility] Comment on above: Performed By: #### U RCX #### [facility] [address] [address] [address] Caitlin Martinez Creatinine [Mass/Vol] 0.56 mg/dL Normal 0.55-1.02 [facility] Comment on above: Performed By: #### U RCX #### [facility] [address] [place] [address] Dr. Caitlin Martinez EGFR-AF ZIMBABWEAN >60 Normal >=60 [facility] Comment on above: Performed By: #### U RCX #### [facility] [address] [address] [address] Caitlin Martinez EGFR-NON AF ZIMBABWEAN >60 Normal >=60 [facility] Comment on above: Performed By: #### U RCX #### [facility] [address] [place] [address] Dr. Caitlin Martinez Globulin (S) [Mass/Vol] 4.4 g/dL Normal [facility] Comment on above: Performed By: #### U RCX #### [facility] [address] [address] [address] Caitlin Martinez Glucose [Mass/Vol] 108 mg/dL Critically high 74-106 [facility] Comment on above: Performed By: #### U RCX #### [facility] [address] [address] [address] Caitlin Martinez Potassium [Moles/Vol] 3.5 mmol/L Normal 3.5-5.1 [facility] Comment on above: Performed By: #### U RCX #### [facility] [address] [place] [address] Dr. Caitlin Martinez Protein [Mass/Vol] 6.5 g/dL Normal 6.4-8.2 [facility] Comment on above: Performed By: #### U RCX #### [facility] [address] [address] [address] Caitlin Martinez Sodium [Moles/Vol] 139 mmol/L Normal 136-145 [facility] Comment on above: Performed By: #### U RCX #### [facility] [address] [address] [address] Caitlin Martinez Urea nitrogen [Mass/Vol] 7.0 mg/dL Normal 7.0-18.0 [facility] Comment on above: Performed By: #### U RCX #### [facility] [address] [place] [address] Dr. Caitlin Martinez Urea nitrogen/Creatinine [Mass ratio] 12.5 mg/mg Normal [facility] Comment on above: Performed By: #### U RCX #### [facility] [address] [place] [address] Dr. Caitlin Martinez TROPONIN, HIGH SENSITIVITYon 02-10-2022 HSTROP <4.0 Normal 4.0-51.3 [facility] Comment on above: Result Comment: CUT- OFF POINTS HAVE BEEN ESTABLISHED BASED ON THE FOURTH UNIVERSAL DEFINITIONS OF MYOCARDIAL INFARCTION. THE UPPER REFERENCE LIMIT (URL) OF TROPONIN, DEFINED THE 99TH PERCENTILE OF cTnI DISTRIBUTION IN A REFERENCE POPULATION, HAS BEEN CONFIRMED THE DECISION THRESHOLD FOR UT DIAGNOSIS. Performed By: #### U RCX #### [facility] [address] [place] [address] Dr. Caitlin Martinez CBC AUTO DIFFon 02-09-2022 BASO # 0.1 103/ul Normal 0.0-0.1 [facility] Comment on above: Performed By: #### U RCX #### [facility] [address] [place] [address] Dr. Caitlin Martinez Basophils/100 WBC (Bld) 0.6 % Normal 0.2-2.0 [facility] Comment on above: Performed By: #### U RCX #### [facility] [address] [address] [address] Caitlin Martinez EO # 0.3 103/ul Normal 0.0-0.7 [facility] Comment on above: Performed By: #### U RCX #### [facility] [address] [place] [address] Dr. Caitlin Martinez Eosinophils/100 WBC (Bld) 2.3 % Normal 0.9-7.0 [facility] Comment on above: Performed By: #### U RCX #### [facility] [address] [place] [address] Dr. Caitlin Martinez Erythrocyte distribution width (RBC) [Ratio] 14.6 % Normal 11.0-15.0 [facility] Comment on above: Performed By: #### U RCX #### [facility] [address] [place] [address] Dr. Caitlin Martinez Hematocrit (Bld) [Volume fraction] 28.8 % Critically low 36.0-48.0 [facility] Comment on above: Performed By: #### U RCX #### [facility] [address] [place] [address] Dr. Caitlin Martinez Hemoglobin (Bld) [Mass/Vol] 9.0 g/dL Critically low 12.0-16.0 [facility] Comment on above: Performed By: #### U RCX #### [facility] [address] [place] [address] Dr. Caitlin Martinez IG # 0.20 10e3/ul Critically high 0.00-0.03 [facility] Comment on above: Performed By: #### U RCX #### [facility] [address] [place] [address] Dr. Caitlin Martinez IG % 1.5 % Critically high 0.0-0.5 [facility] Comment on above: Performed By: #### U RCX #### [facility] [address] [place] [address] Dr. Caitlin Martinez LYMPH # 3.0 103/ul Normal 1.2-3.8 [facility] Comment on above: Performed By: #### U RCX #### [facility] [address] [address] [address] Caitlin Martinez Lymphocytes/100 WBC (Bld) 22.2 % Normal 20.5-60.0 [facility] Comment on above: Performed By: #### U RCX #### [facility] [address] [address] [address] Caitlin Martinez MANUAL DIFF REQ NO Normal [facility] Comment on above: Performed By: #### U RCX #### [facility] [address] [address] [address] Caitlin Martinez MCH (RBC) [Entitic mass] 26.2 pg Critically low 26.7-34.0 [facility] Comment on above: Performed By: #### U RCX #### [facility] [address] [place] [address] Dr. Caitlin Martinez MCHC (RBC) [Mass/Vol] 31.3 g/dL Normal 29.9-35.2 [facility] Comment on above: Performed By: #### U RCX #### [facility] [address] [place] [address] Dr. Caitlin Martinez MCV (RBC) [Entitic vol] 83.7 fL Normal 81.0-99.0 [facility] Comment on above: Performed By: #### U RCX #### [facility] [address] [place] [address] Dr. Caitlin Martinez MONO # 1.3 103/ul Critically high 0.3-0.8 [facility] Comment on above: Performed By: #### U RCX #### [facility] [address] [place] [address] Dr. Caitlin Martinez Monocytes/100 WBC (Bld) 9.8 % Normal 1.7-12.0 [facility] Comment on above: Performed By: #### U RCX #### [facility] [address] [place] [address] Dr. Caitlin Martinez NEUT # 8.5 103/ul Critically high 1.4-6.5 [facility] Comment on above: Performed By: #### U RCX #### [facility] [address] [address] [address] Caitlin Martinez Neutrophils/100 WBC (Bld) 63.6 % Normal 43.0-75.0 [facility] Comment on above: Performed By: #### U RCX #### [facility] [address] [address] [address] Caitlin Martinez Platelet mean volume (Bld) [Entitic vol] 9.1 fL Critically low 9.5-13.5 [facility] Comment on above: Performed By: #### U RCX #### [facility] [address] [address] [address] Caitlin Martinez PLT 355 103/ul Normal 150-450 [facility] Comment on above: Performed By: #### U RCX #### [facility] [address] [place] [address] Dr. Caitlin Martinez RBC 3.44 106/ul Critically low 4.20-5.40 [facility] Comment on above: Performed By: #### U RCX #### [facility] [address] [place] [address] Dr. Caitlin Martinez WBC 13.3 103/ul Critically high 4.0-11.0 [facility] Comment on above: Performed By: #### U RCX #### [facility] [address] [place] [address] Dr. Caitlin Martinez SCREENon 02-09-2022 SCREEN Negative Normal [facility] Comment on above: Performed By: #### F ETSCRN #### [facility] [address] [place] [address] Dr. Caitlin Martinez CBC AUTO DIFFon 02-08-2022 BASO # 0.1 103/ul Normal 0.0-0.1 [facility] Comment on above: Performed By: #### U RCX #### [facility] [address] [place] [address] Dr. Caitlin Martinez Basophils/100 WBC (Bld) 0.4 % Normal 0.2-2.0 [facility] Comment on above: Performed By: #### U RCX #### [facility] [address] [address] [address] Caitlin Martinez EO # 0.3 103/ul Normal 0.0-0.7 [facility] Comment on above: Performed By: #### U RCX #### [facility] [address] [address] [address] Caitlin Martinez Eosinophils/100 WBC (Bld) 2.6 % Normal 0.9-7.0 [facility] Comment on above: Performed By: #### U RCX #### [facility] [address] [place] [address] Dr. Caitlin Martinez Erythrocyte distribution width (RBC) [Ratio] 14.7 % Normal 11.0-15.0 [facility] Comment on above: Performed By: #### U RCX #### [facility] [address] [place] [address] Dr. Caitlin Martinez Hematocrit (Bld) [Volume fraction] 30.6 % Critically low 36.0-48.0 [facility] Comment on above: Performed By: #### U RCX #### [facility] [address] [place] [address] Dr. Caitlin Martinez Hemoglobin (Bld) [Mass/Vol] 9.7 g/dL Critically low 12.0-16.0 [facility] Comment on above: Performed By: #### U RCX #### [facility] [address] [place] [address] Dr. Caitlin Martinez IG # 0.15 10e3/ul Critically high 0.00-0.03 [facility] Comment on above: Performed By: #### U RCX #### [facility] [address] [place] [address] Dr. Caitlin Martinez IG % 1.3 % Critically high 0.0-0.5 [facility] Comment on above: Performed By: #### U RCX #### [facility] [address] [place] [address] Dr. Caitlin Martinez LYMPH # 2.8 103/ul Normal 1.2-3.8 [facility] Comment on above: Performed By: #### U RCX #### [facility] [address] [place] [address] Dr. Caitlin Martinez Lymphocytes/100 WBC (Bld) 24.8 % Normal 20.5-60.0 [facility] Comment on above: Performed By: #### U RCX #### [facility] [address] [place] [address] Dr. Caitlin Martinez MANUAL DIFF REQ NO Normal [facility] Comment on above: Performed By: #### U RCX #### [facility] [address] [place] [address] Dr. Caitlin Martinez MCH (RBC) [Entitic mass] 26.6 pg Critically low 26.7-34.0 [facility] Comment on above: Performed By: #### U RCX #### [facility] [address] [place] [address] Dr. Caitlin Martinez MCHC (RBC) [Mass/Vol] 31.7 g/dL Normal 29.9-35.2 [facility] Comment on above: Performed By: #### U RCX #### [facility] [address] [place] [address] Dr. Caitlin Martinez MCV (RBC) [Entitic vol] 83.8 fL Normal 81.0-99.0 [facility] Comment on above: Performed By: #### U RCX #### [facility] [address] [place] [address] Dr. Caitlin Martinez MONO # 1.0 103/ul Critically high 0.3-0.8 [facility] Comment on above: Performed By: #### U RCX #### [facility] [address] [place] [address] Dr. Caitlin Martinez Monocytes/100 WBC (Bld) 8.7 % Normal 1.7-12.0 [facility] Comment on above: Performed By: #### U RCX #### [facility] [address] [place] [address] Dr. Caitlin Martinez NEUT # 7.0 103/ul Critically high 1.4-6.5 [facility] Comment on above: Performed By: #### U RCX #### [facility] [address] [address] [address] Caitlin Martinez Neutrophils/100 WBC (Bld) 62.2 % Normal 43.0-75.0 [facility] Comment on above: Performed By: #### U RCX #### [facility] [address] [address] [address] Caitlin Martinez Platelet mean volume (Bld) [Entitic vol] 9.0 fL Critically low 9.5-13.5 [facility] Comment on above: Performed By: #### U RCX #### [facility] [address] [address] [address] Caitlin Martinez PLT 373 103/ul Normal 150-450 [facility] Comment on above: Performed By: #### U RCX #### [facility] [address] [place] [address] Dr. Caitlin Martinez RBC 3.65 106/ul Critically low 4.20-5.40 [facility] Comment on above: Performed By: #### U RCX #### [facility] [address] [address] [address] Caitlin Martinez WBC 11.3 103/ul Critically high 4.0-11.0 [facility] Comment on above: Performed By: #### U RCX #### [facility] [address] [place] [address] Dr. Caitlin Martinez [facility] SARS-CoV-2 (COVID-19) RNA JONATAN+probe Ql (Unsp spec) Not detected Normal NOT DETECTED [facility] Comment on above: Result Comment: When diagnostic [...] for this test is supported by the [employer] and [employer]'s declaration that [...] used). Performed By: #### C BC #### [facility] [address] [place] [address] Dr. Caitlin Martinez DIRECT COOMBSon 02-08-2022 DIRECT EDWINA Negative Normal [facility] Comment on above: Performed By: #### D IRCMB, ABID #### [facility] [address] [place] [address] Dr. Caitlin Martinez DRUG SCREEN RAPID (URINE)on 02-08-2022 AMP Negative Normal NEGATIVE [facility] Comment on above: Performed By: #### C BC #### [facility] [address] [place] [address] Dr. Caitlin Martinez BAR Negative Normal NEGATIVE [facility] Comment on above: Performed By: #### C BC #### [facility] [address] [place] [address] Dr. Caitlin Martinez BUP Negative Normal NEGATIVE [facility] Comment on above: Performed By: #### C BC #### [facility] [address] [place] [address] Dr. Caitlin Martinez BZO Negative Normal NEGATIVE [facility] Comment on above: Performed By: #### C BC #### [facility] [address] [place] [address] Dr. Caitlin Martinez JEANNA Negative Normal NEGATIVE [facility] Comment on above: Performed By: #### C BC #### [facility] [address] [place] [address] Dr. Caitlin Martinez CUT-OFFS SEE BELOW Normal [facility] Comment on above: Result Comment: AMP [...] ng/mL Performed By: #### C BC #### [facility] [address] [place] [address] Dr. Caitlin Martinez DRUG CUT HEADER DRUG CLASS TEST SYSTEM CUT-OFF CONCENTRATIONS ARE FOLLOWS: Normal [facility] Comment on above: Performed By: #### C BC #### [facility] [address] [place] [address] Dr. Caitlin Martinez mAMP Negative Normal NEGATIVE [facility] Comment on above: Performed By: #### C BC #### [facility] [address] [place] [address] Dr. Caitlin Martinez MTD Negative Normal NEGATIVE [facility] Comment on above: Performed By: #### C BC #### [facility] [address] [place] [address] Dr. Caitlin Martinez OPI Negative Normal NEGATIVE [facility] Comment on above: Performed By: #### C BC #### [facility] [address] [place] [address] Dr. Caitlin Martinez OXY Negative Normal NEGATIVE [facility] Comment on above: Performed By: #### C BC #### [facility] [address] [place] [address] Dr. Caitlin Martinez PCP Negative Normal NEGATIVE [facility] Comment on above: Performed By: #### C BC #### [facility] [address] [place] [address] Dr. Caitlin Martinez PPX Negative Normal NEGATIVE [facility] Comment on above: Performed By: #### C BC #### [facility] [address] [place] [address] Dr. Caitlin Martinez TCA Negative Normal NEGATIVE [facility] Comment on above: Performed By: #### C BC #### [facility] [address] [place] [address] Dr. Caitlin Martinez THC Negative Normal NEGATIVE [facility] Comment on above: Performed By: #### C BC #### [facility] [address] [place] [address] Dr. Caitlin Martinez TYPE AND SCREENon 02-08-2022 TYPE AND SCREEN Negative Normal [facility] Comment on above: Performed By: #### I HORACIO #### [facility] [address] [place] [address] Dr. Caitlin Martinez US PREG BIOPHY W [...] DAVID BLACKMON Date: 2022-02-05 16:28 Normal [facility] AMNISUREon 01-25-2022 AMNISURE Negative Normal NEGATIVE [facility] Comment on above: Performed By: #### A MNI #### [facility] [address] [place] [address] Dr. Caitlin Martinez CULTURE URINEon 01-25-2022 CULTURE URINE Culture Observations : No growth Normal [facility] Comment on above: Performed By: #### U RCX #### [facility] [address] [place] [address] Dr. Caitlin Martinez UA (CLEAN/CATCH) UPWARD BOUND DIRECTOR/MICRO I F IND.on 01-25-2022 Bilirubin Ql (U) Negative Normal NEGATIVE [facility] Comment on above: Performed By: #### C VDTBH #### [facility] [address] [place] [address] Dr. Caitlin Martinez Clarity (U) SL CLOUDY Abnormal CLEAR [facility] Comment on above: Performed By: #### C VDTBH #### [facility] [address] [address] [address] Caitlin Martinez Color (U) LT. YELLOW Normal YELLOW [facility] Comment on above: Performed By: #### C VDTBH #### [facility] [address] [address] [address] Caitlin Martinez Glucose Ql (U) Negative Normal NEGATIVE [facility] Comment on above: Performed By: #### C VDTBH #### [facility] [address] [place] [address] Dr. Caitlin Martinez Hemoglobin Ql (U) TRACE-INTACT Abnormal NEGATIVE [facility] Comment on above: Performed By: #### C VDTBH #### [facility] [address] [place] [address] Dr. Caitlin Martinez Ketones Ql (U) Negative Normal NEGATIVE [facility] Comment on above: Performed By: #### C VDTBH #### [facility] [address] [place] [address] Dr. Caitlin Martinez LEUKOCYTES TRACE Abnormal NEGATIVE [facility] Comment on above: Performed By: #### C VDTBH #### [facility] [address] [place] [address] Dr. Caitlin Martinez Nitrite Ql (U) Negative Normal NEGATIVE [facility] Comment on above: Performed By: #### C VDTBH #### [facility] [address] [place] [address] Dr. Caitlin Martinez pH (U) 6.5 [pH] Normal 5-9 [facility] Comment on above: Performed By: #### C VDTBH #### [facility] [address] [place] [address] Dr. Caitlin Martinez SPEC GRAVITY 1.020 Normal 1.005-<=1.025 [facility] Comment on above: Performed By: #### C VDTBH #### [facility] [address] [place] [address] Dr. Caitlin Martinez UA PROTEIN Negative Normal NEGATIVE/ TRACE [facility] Comment on above: Performed By: #### C VDTBH #### [facility] [address] [place] [address] Dr. Caitlin Martinez UR MICRO IND INDICATED Normal [facility] Comment on above: Performed By: #### C VDTBH #### [facility] [address] [place] [address] Dr. Caitlin Martinez Urobilinogen Qn (U) 0.2 {Barbara'U}/dL Normal 0.2 - 1. 0 [facility] Comment on above: Performed By: #### C VDTBH #### [facility] [address] [place] [address] Dr. Caitlin Martinez URINE MICROSCOPIC ONLYon BACTERIA MODERATE Abnormal NONE SEEN [facility] Comment on above: Performed By: #### C VDTBH #### [facility] [address] [place] [address] Dr. Caitlin Martinez Bacteria identified Cx Nom (U) INDICATED Normal [facility] Comment on above: Performed By: #### C VDTBH #### [facility] [address] [place] [address] Dr. Caitlin Martinez CAST NONE SEEN Normal NONE SEEN [facility] Comment on above: Performed By: #### C VDTBH #### [facility] [address] [place] [address] Dr. Caitlin Martinez Crystals LM Nom (Urine sed) NONE SEEN Normal NONE SEEN [facility] Comment on above: Performed By: #### C VDTBH #### [facility] [address] [place] [address] Dr. Caitlin Martinez Epithelial cells LM Ql (Urine sed) FEW Abnormal NONE SEEN /RARE [facility] Comment on above: Performed By: #### C VDTBH #### [facility] [address] [place] [address] Dr. Caitlin Martinez MUCOUS TRACE Abnormal NONE SEEN [facility] Comment on above: Performed By: #### C VDTBH #### [facility] [address] [place] [address] Dr. Caitlin Martinez RBC 2-5 Abnormal 0-2 [facility] Comment on above: Performed By: #### C VDTBH #### [facility] [address] [place] [address] Dr. Caitlin Martinez WBC 0-2 Abnormal NONE SEEN [facility] Comment on above: Performed By: #### C VDTBH #### [facility] [address] [place] [address] Dr. Caitlin Martinez AMYLASEon 01-16-2022 Amylase [Catalytic activity/Vol] 49 U/L Normal 25-115 [facility] Comment on above: Performed By: #### C VDTBH #### [facility] [address] [place] [address] Dr. Caitlin Martinez BUNon 01-16-2022 Urea nitrogen [Mass/Vol] 3.0 mg/dL Critically low 7.0-18.0 [facility] Comment on above: Performed By: #### C BC #### [facility] [address] [place] [address] Dr. Caitlin Martinez CBC AUTO DIFFon 01-16-2022 BASO # 0.1 103/ul Normal 0.0-0.1 [facility] Comment on above: Performed By: #### U RCX #### [facility] [address] [place] [address] Dr. Caitlin Martinez Basophils/100 WBC (Bld) 0.6 % Normal 0.2-2.0 [facility] Comment on above: Performed By: #### U RCX #### [facility] [address] [place] [address] Dr. Caitlin Martinez EO # 0.3 103/ul Normal 0.0-0.7 [facility] Comment on above: Performed By: #### U RCX #### [facility] [address] [place] [address] Dr. Caitlin Martinez Eosinophils/100 WBC (Bld) 2.6 % Normal 0.9-7.0 [facility] Comment on above: Performed By: #### U RCX #### [facility] [address] [place] [address] Dr. Caitlin Martinez Erythrocyte distribution width (RBC) [Ratio] 14.4 % Normal 11.0-15.0 [facility] Comment on above: Performed By: #### U RCX #### [facility] [address] [place] [address] [address] Caitlin Martinez Hematocrit (Bld) [Volume fraction] 28.4 % Critically low 36.0-48.0 [facility] Comment on above: Performed By: #### U RCX #### [facility] [address] [place] [address] Dr. Caitlin Martinez Hemoglobin (Bld) [Mass/Vol] 9.0 g/dL Critically low 12.0-16.0 [facility] Comment on above: Performed By: #### U RCX #### [facility] [address] [place] [address] Dr. Caitlin Martinez IG # 0.11 10e3/ul Critically high 0.00-0.03 [facility] Comment on above: Performed By: #### U RCX #### [facility] [address] [place] [address] Dr. Caitlin Martinez IG % 1.1 % Critically high 0.0-0.5 [facility] Comment on above: Performed By: #### U RCX #### [facility] [address] [place] [address] Dr. Caitlin Martinez LYMPH # 2.2 103/ul Normal 1.2-3.8 [facility] Comment on above: Performed By: #### U RCX #### [facility] [address] [place] [address] Dr. Caitlin Martinez Lymphocytes/100 WBC (Bld) 21.0 % Normal 20.5-60.0 [facility] Comment on above: Performed By: #### U RCX #### [facility] [address] [place] [address] Dr. Caitlin Martinez MANUAL DIFF REQ NO Normal [facility] Comment on above: Performed By: #### U RCX #### [facility] [address] [place] [address] Dr. Caitlin Martinez MCH (RBC) [Entitic mass] 28.2 pg Normal 26.7-34.0 [facility] Comment on above: Performed By: #### U RCX #### [facility] [address] [place] [address] [address] Caitlin Martinez MCHC (RBC) [Mass/Vol] 31.7 g/dL Normal 29.9-35.2 [facility] Comment on above: Performed By: #### U RCX #### [facility] [address] [place] [address] Dr. Caitlin Martinez MCV (RBC) [Entitic vol] 89.0 fL Normal 81.0-99.0 [facility] Comment on above: Performed By: #### U RCX #### [facility] [address] [place] [address] Dr. Caitlin Martinez MONO # 0.9 103/ul Critically high 0.3-0.8 [facility] Comment on above: Performed By: #### U RCX #### [facility] [address] [place] [address] Dr. Caitlin Martinez Monocytes/100 WBC (Bld) 8.9 % Normal 1.7-12.0 [facility] Comment on above: Performed By: #### U RCX #### [facility] [address] [place] [address] Dr. Caitlin Martinez NEUT # 6.8 103/ul Critically high 1.4-6.5 [facility] Comment on above: Performed By: #### U RCX #### [facility] [address] [place] [address] Dr. Caitlin Martinez Neutrophils/100 WBC (Bld) 65.8 % Normal 43.0-75.0 [facility] Comment on above: Performed By: #### U RCX #### [facility] [address] [place] [address] Dr. Caitlin Martinez Platelet mean volume (Bld) [Entitic vol] 8.6 fL Critically low 9.5-13.5 [facility] Comment on above: Performed By: #### U RCX #### [facility] [address] [place] [address] Dr. Caitlin Martinez PLT 322 103/ul Normal 150-450 [facility] Comment on above: Performed By: #### U RCX #### [facility] [address] [place] [address] [address] Caitlin Martinez RBC 3.19 106/ul Critically low 4.20-5.40 [facility] Comment on above: Performed By: #### U RCX #### [facility] [address] [place] [address] [address] Caitlin Martinez WBC 10.3 103/ul Normal 4.0-11.0 [facility] Comment on above: Performed By: #### U RCX #### [facility] [address] [place] [address] [address] Caitlin Martinez CREATININEon 01-16-2022 Creatinine [Mass/Vol] 0.55 mg/dL Normal 0.55-1.02 [facility] Comment on above: Performed By: #### C VDTBH #### [facility] [address] [place] [address] Dr. Caitlin Martinez EGFR-AF ZIMBABWEAN >60 Normal >=60 [facility] Comment on above: Performed By: #### C VDTBH #### [facility] [address] [place] [address] Dr. Caitlin Martinez EGFR-NON AF ZIMBABWEAN >60 Normal >=60 [facility] Comment on above: Performed By: #### C VDTBH #### [facility] [address] [place] [address] [address] Caitlin Martinez ELECTROLYTESon 01-16-2022 Anion gap [Moles/Vol] 13.6 mmol/L Normal [facility] Comment on above: Performed By: #### C VDTBH #### [facility] [address] [place] [address] [address] Caitlin Martinez Chloride [Moles/Vol] 106 mmol/L Normal 98-107 [facility] Comment on above: Performed By: #### C VDTBH #### [facility] [address] [place] [address] Dr. Caitlin Martinez CO2 [Moles/Vol] 22.9 mmol/L Normal 21.0-32.0 [facility] Comment on above: Performed By: #### C VDTBH #### [facility] [address] [place] [address] Dr. Caitlin Martinez Potassium [Moles/Vol] 3.5 mmol/L Normal 3.5-5.1 [facility] Comment on above: Performed By: #### C VDTBH #### [facility] [address] [place] [address] Dr. Caitlin Martinez Sodium [Moles/Vol] 139 mmol/L Normal 136-145 [facility] Comment on above: Performed By: #### C VDTBH #### [facility] [address] [place] [address] Dr. Caitlin Martinez LIPASEon 01-16-2022 Lipase [Catalytic activity/Vol] 66.0 U/L Critically low 73.0-393.0 [facility] Comment on above: Performed By: #### C BC #### [facility] [address] [place] [address] Dr. Caitlin Martinez SGOTon 01-16-2022 AST [Catalytic activity/Vol] 12 U/L Critically low 15-37 [facility] Comment on above: Performed By: #### C VDTBH #### [facility] [address] [place] [address] Dr. Caitlin Martinez SGPTon 01-16-2022 ALT [Catalytic activity/Vol] 9 U/L Critically low 14-59 [facility] Comment on above: Performed By: #### C VDTBH #### [facility] [address] [place] [address] Dr. Caitlin Martinez CBC AUTO DIFFon 01-15-2022 BASO # 0.1 103/ul Normal 0.0-0.1 [facility] Comment on above: Performed By: #### C VDTBH #### [facility] [address] [place] [address] Dr. Caitlin Martinez Basophils/100 WBC (Bld) 0.4 % Normal 0.2-2.0 [facility] Comment on above: Performed By: #### C VDTBH #### [facility] [address] [place] [address] [address] Caitlin Martinez EO # 0.2 103/ul Normal 0.0-0.7 [facility] Comment on above: Performed By: #### C VDTBH #### [facility] [address] [place] [address] [address] Caitlin Martinez Eosinophils/100 WBC (Bld) 1.4 % Normal 0.9-7.0 [facility] Comment on above: Performed By: #### C VDTBH #### [facility] [address] [place] [address] Dr. Caitlin Martinez Erythrocyte distribution width (RBC) [Ratio] 14.1 % Normal 11.0-15.0 [facility] Comment on above: Performed By: #### C VDTBH #### [facility] [address] [place] [address] Dr. Caitlin Martinez Hematocrit (Bld) [Volume fraction] 28.4 % Critically low 36.0-48.0 [facility] Comment on above: Performed By: #### C VDTBH #### [facility] [address] [place] [address] Dr. Caitlin Martinez Hemoglobin (Bld) [Mass/Vol] 9.0 g/dL Critically low 12.0-16.0 [facility] Comment on above: Performed By: #### C VDTBH #### [facility] [address] [place] [address] Dr. Caitlin Martinez IG # 0.18 10e3/ul Critically high 0.00-0.03 [facility] Comment on above: Performed By: #### C VDTBH #### [facility] [address] [place] [address] Dr. Caitlin Martinez IG % 1.3 % Critically high 0.0-0.5 [facility] Comment on above: Performed By: #### C VDTBH #### [facility] [address] [place] [address] Dr. Caitlin Martinez LYMPH # 2.4 103/ul Normal 1.2-3.8 [facility] Comment on above: Performed By: #### C VDTBH #### [facility] [address] [place] [address] [address] Caitlin Martinez Lymphocytes/100 WBC (Bld) 16.8 % Critically low 20.5-60.0 [facility] Comment on above: Performed By: #### C VDTBH #### [facility] [address] [place] [address] Dr. Caitlin Martinez MANUAL DIFF REQ NO Normal [facility] Comment on above: Performed By: #### C VDTBH #### [facility] [address] [place] [address] Dr. Caitlin Martinez MCH (RBC) [Entitic mass] 27.9 pg Normal 26.7-34.0 [facility] Comment on above: Performed By: #### C VDTBH #### [facility] [address] [place] [address] Dr. Caitlin Martinez MCHC (RBC) [Mass/Vol] 31.7 g/dL Normal 29.9-35.2 [facility] Comment on above: Performed By: #### C VDTBH #### [facility] [address] [place] [address] Dr. Caitlin Martinez MCV (RBC) [Entitic vol] 87.9 fL Normal 81.0-99.0 [facility] Comment on above: Performed By: #### C VDTBH #### [facility] [address] [place] [address] Dr. Caitlin Martinez MONO # 0.9 103/ul Critically high 0.3-0.8 [facility] Comment on above: Performed By: #### C VDTBH #### [facility] [address] [place] [address] Dr. Caitlin Martinez Monocytes/100 WBC (Bld) 6.7 % Normal 1.7-12.0 [facility] Comment on above: Performed By: #### C VDTBH #### [facility] [address] [place] [address] Dr. Caitlin Martinez NEUT # 10.3 103/ul Critically high 1.4-6.5 [facility] Comment on above: Performed By: #### C VDTBH #### [facility] [address] [place] [address] [address] Caitlin Martinez Neutrophils/100 WBC (Bld) 73.4 % Normal 43.0-75.0 [facility] Comment on above: Performed By: #### C VDTBH #### [facility] [address] [place] [address] [address] Caitlin Martinez Platelet mean volume (Bld) [Entitic vol] 9.0 fL Critically low 9.5-13.5 [facility] Comment on above: Performed By: #### C VDTBH #### [facility] [address] [place] [address] Dr. Caitlin Martinez PLT 318 103/ul Normal 150-450 [facility] Comment on above: Performed By: #### C VDTBH #### [facility] [address] [place] [address] Dr. Caitlin Martinez RBC 3.23 106/ul Critically low 4.20-5.40 [facility] Comment on above: Performed By: #### C VDTBH #### [facility] [address] [place] [address] Dr. Caitlin Martinez WBC 14.0 103/ul Critically high 4.0-11.0 [facility] Comment on above: Performed By: #### C VDTBH #### [facility] [address] [place] [address] ABD/PELVIS WO CONon [...] DAVID BLACKMON Date: 2022-01-15 16:31 Normal [facility] CULTURE URINEon 01-15-2022 CULTURE URINE Culture Observations : LIGHT GROWTH OF MIXED GENITAL COSME. NO POTENTIAL PATHOGENS SEEN. Normal [facility] Comment on above: Performed By: #### U RCX #### [facility] [address] [place] [address] Dr. Caitlin Martinez UA (CLEAN/CATCH) UPWARD BOUND DIRECTOR/MICRO I F IND.on 01-15-2022 Bilirubin Ql (U) Negative Normal NEGATIVE [facility] Comment on above: Performed By: #### C BC #### [facility] [address] [place] [address] Dr. Caitlin Martinez Clarity (U) CLEAR Normal CLEAR [facility] Comment on above: Performed By: #### C BC #### [facility] [address] [place] [address] Dr. Caitlin Martinez Color (U) LT. YELLOW Normal YELLOW [facility] Comment on above: Performed By: #### C BC #### [facility] [address] [place] [address] Dr. Caitlin Martinez Glucose Ql (U) Negative Normal NEGATIVE [facility] Comment on above: Performed By: #### C BC #### [facility] [address] [place] [address] Dr. Caitlin Martinez Hemoglobin Ql (U) Negative Normal NEGATIVE [facility] Comment on above: Performed By: #### C BC #### [facility] [address] [place] [address] Dr. Caitlin Martinez Ketones Ql (U) Negative Normal NEGATIVE [facility] Comment on above: Performed By: #### C BC #### [facility] [address] [place] [address] Dr. Caitlin Martinez LEUKOCYTES TRACE Abnormal NEGATIVE [facility] Comment on above: Performed By: #### C BC #### [facility] [address] [place] [address] Dr. Caitlin Martinez Nitrite Ql (U) Negative Normal NEGATIVE [facility] Comment on above: Performed By: #### C BC #### [facility] [address] [place] [address] Dr. Caitlin Martinez pH (U) 7.0 [pH] Normal 5-9 [facility] Comment on above: Performed By: #### C BC #### [facility] [address] [place] [address] Dr. Caitlin Martinez SPEC GRAVITY 1.010 Normal 1.005-<=1.025 [facility] Comment on above: Performed By: #### C BC #### [facility] [address] [place] [address] Dr. Caitlin Martinez UA PROTEIN Negative Normal NEGATIVE/ TRACE [facility] Comment on above: Performed By: #### C BC #### [facility] [address] [place] [address] Dr. Caitlin Martinez UR MICRO IND INDICATED Normal [facility] Comment on above: Performed By: #### C BC #### [facility] [address] [place] [address] Dr. Caitlin Martinez Urobilinogen Qn (U) 0.2 {Barbara'U}/dL Normal 0.2 - 1. 0 [facility] Comment on above: Performed By: #### C BC #### [facility] [address] [place] [address] Dr. Caitlin Martinez URINE MICROSCOPIC ONLYon BACTERIA MODERATE Abnormal NONE SEEN [facility] Comment on above: Performed By: #### C BC #### [facility] [address] [place] [address] Dr. Caitlin Martinez Bacteria identified Cx Nom (U) INDICATED Normal [facility] Comment on above: Performed By: #### C BC #### [facility] [address] [place] [address] Dr. Caitlin Martinez CAST NONE SEEN Normal NONE SEEN [facility] Comment on above: Performed By: #### C BC #### [facility] [address] [place] [address] Dr. Caitlin Martinez Crystals LM Nom (Urine sed) NONE SEEN Normal NONE SEEN [facility] Comment on above: Performed By: #### C BC #### [facility] [address] [place] [address] Dr. Caitlin Martinez Epithelial cells LM Ql (Urine sed) MODERATE Abnormal NONE SEEN /RARE [facility] Comment on above: Performed By: #### C BC #### [facility] [address] [place] [address] Dr. Caitlin Martinez MUCOUS NONE SEEN Normal NONE SEEN [facility] Comment on above: Performed By: #### C BC #### [facility] [address] [place] [address] Dr. Caitlin Martinez RBC NONE SEEN Abnormal 0-2 [facility] Comment on above: Performed By: #### C BC #### [facility] [address] [place] [address] Dr. Caitlin Martinez WBC 2-[address] [facility] Comment on above: Performed By: #### C BC #### [facility] [address] [place] [address] Dr. Caitlin Martinez US APPENDIXon 01-15-2022 US [...] DAVID BLACKMON Date: 2022-01-15 14:14 Normal [facility] US PREG GROWTHon 01-15-2022 US PREG GROWTH [...] DAVID BLACKMON Date: 2022-01-15 10:59 Normal [facility] US PREG PLACENTAon US PREG PLACENTA EXAMINATION: [...] DAVID BLACKMON Date: 2022-01-15 10:57 Normal [facility] UA (CLEAN/CATCH) UPWARD BOUND DIRECTOR/MICRO I F IND.on 12-29-2021 Bilirubin Ql (U) Negative Normal NEGATIVE [facility] Comment on above: Performed By: #### C BC #### [facility] [address] [place] [address] Dr. Caitlin Martinez Clarity (U) CLEAR Normal CLEAR [facility] Comment on above: Performed By: #### C BC #### [facility] [address] [place] [address] Dr. Caitlin Martinez Color (U) LT. YELLOW Normal YELLOW [facility] Comment on above: Performed By: #### C BC #### [facility] [address] [place] [address] Dr. Caitlin Martinez Glucose Ql (U) Negative Normal NEGATIVE [facility] Comment on above: Performed By: #### C BC #### [facility] [address] [place] [address] Dr. Caitlin Martinez Hemoglobin Ql (U) Negative Normal NEGATIVE [facility] Comment on above: Performed By: #### C BC #### [facility] [address] [place] [address] Dr. Caitlin Martinez Ketones Ql (U) Negative Normal NEGATIVE [facility] Comment on above: Performed By: #### C BC #### [facility] [address] [place] [address] Dr. Caitlin Martinez LEUKOCYTES Negative Normal NEGATIVE [facility] Comment on above: Performed By: #### C BC #### [facility] [address] [place] [address] Dr. Caitlin Martinez Nitrite Ql (U) Negative Normal NEGATIVE [facility] Comment on above: Performed By: #### C BC #### [facility] [address] [place] [address] Dr. Caitlin Martinez pH (U) 6.5 [pH] Normal 5-9 [facility] Comment on above: Performed By: #### C BC #### [facility] [address] [place] [address] Dr. Caitlin Martinez SPEC GRAVITY 1.020 Normal 1.005-<=1.025 [facility] Comment on above: Performed By: #### C BC #### [facility] [address] [place] [address] Dr. Caitlin Martinez UA PROTEIN Negative Normal NEGATIVE/ TRACE [facility] Comment on above: Performed By: #### C BC #### [facility] [address] [place] [address] Dr. Caitlin Martinez UR MICRO IND NOT INDICATED Normal [facility] Comment on above: Performed By: #### C BC #### [facility] [address] [place] [address] Dr. Caitlin Martinez Urobilinogen Qn (U) 1.0 {Barbara'U}/dL Normal 0.2 - 1. 0 [facility] Comment on above: Performed By: #### C BC #### [facility] [address] [place] [address] Dr. Caitlin Martinez US PREG CERVICAL LENGTHon [...] KIRK OATES Date: 2021-12-29 15:53 Normal [facility] UA (CLEAN/CATCH) UPWARD BOUND DIRECTOR/MICRO I F IND.on 12-18-2021 Bilirubin Ql (U) Negative Normal NEGATIVE [facility] Comment on above: Performed By: #### C BC #### [facility] [address] [place] [address] Dr. Caitlin Martinez Clarity (U) CLEAR Normal CLEAR [facility] Comment on above: Performed By: #### C BC #### [facility] [address] [place] [address] Dr. Caitlin Martinez Color (U) YELLOW Normal YELLOW [facility] Comment on above: Performed By: #### C BC #### [facility] [address] [place] [address] Dr. Caitlin Martinez Glucose Ql (U) Negative Normal NEGATIVE [facility] Comment on above: Performed By: #### C BC #### [facility] [address] [place] [address] Dr. Caitlin Martinez Hemoglobin Ql (U) Negative Normal NEGATIVE [facility] Comment on above: Performed By: #### C BC #### [facility] [address] [place] [address] Dr. Caitlin Martinez Ketones Ql (U) TRACE Abnormal NEGATIVE [facility] Comment on above: Performed By: #### C BC #### [facility] [address] [place] [address] Dr. Caitlin Martinez LEUKOCYTES Negative Normal NEGATIVE [facility] Comment on above: Performed By: #### C BC #### [facility] [address] [place] [address] Dr. Caitlin Martinez Nitrite Ql (U) Negative Normal NEGATIVE [facility] Comment on above: Performed By: #### C BC #### [facility] [address] [place] [address] Dr. Caitlin Martinez pH (U) 6.0 [pH] Normal 5-9 [facility] Comment on above: Performed By: #### C BC #### [facility] [address] [place] [address] Dr. Caitlin Martinez SPEC GRAVITY 1.025 Normal 1.005-<=1.025 [facility] Comment on above: Performed By: #### C BC #### [facility] [address] [place] [address] Dr. Caitlin Martinez UA PROTEIN Negative Normal NEGATIVE/ TRACE [facility] Comment on above: Performed By: #### C BC #### [facility] [address] [place] [address] Dr. Caitlin aMrtinez UR MICRO IND NOT INDICATED Normal [facility] Comment on above: Performed By: #### C BC #### [facility] [address] [place] [address] Dr. Caitlin Martinez Urobilinogen Qn (U) 4 {Barbara'U}/dL Abnormal 0.2 - 1.0 [facility] Comment on above: Performed By: #### C BC #### [facility] [address] [place] [address] Dr. Caitlin Martinez RHOGAMon 11-28-2021 RHOGAM Status Information Issued Quantity 1 Product ID Rh Immune Globulin Lot Number [id number] Issue Date/Time [id number] Normal [facility] Comment on above: Performed By: #### I HORACIO #### [facility] [address] [place] [address] Dr. Caitlin Martinez TYPE AND SCREENon 11-27-2021 TYPE AND SCREEN Negative Normal [facility] Comment on above: Performed By: #### T NS #### [facility] [address] [place] [address] Dr. Caitlin Martinez CULTURE URINEon 11-23-2021 CULTURE URINE Culture Observations : No growth Normal [facility] Comment on above: Performed By: #### I HORACIO #### [facility] [address] [place] [address] Dr. Caitlin Martinez UA (CLEAN/CATCH) UPWARD BOUND DIRECTOR/MICRO I F IND.on 11-23-2021 Bilirubin Ql (U) Negative Normal NEGATIVE [facility] Comment on above: Performed By: #### U RCX #### [facility] [address] [place] [address] Dr. Caitlin Martinez Clarity (U) CLEAR Normal CLEAR [facility] Comment on above: Performed By: #### U RCX #### [facility] [address] [place] [address] Dr. Caitlin Martinez Color (U) LT. YELLOW Normal YELLOW [facility] Comment on above: Performed By: #### U RCX #### [facility] [address] [place] [address] Dr. Caitlin Martinez Glucose Ql (U) Negative Normal NEGATIVE [facility] Comment on above: Performed By: #### U RCX #### [facility] [address] [place] [address] Dr. Caitlin Martinez Hemoglobin Ql (U) Negative Normal NEGATIVE [facility] Comment on above: Performed By: #### U RCX #### [facility] [address] [place] [address] Dr. Catilin Martinez Ketones Ql (U) Negative Normal NEGATIVE [facility] Comment on above: Performed By: #### U RCX #### [facility] [address] [place] [address] Dr. Caitlin Martinez LEUKOCYTES SMALL Abnormal NEGATIVE [facility] Comment on above: Performed By: #### U RCX #### [facility] [address] [place] [address] Dr. Caitlin Martinez Nitrite Ql (U) Negative Normal NEGATIVE [facility] Comment on above: Performed By: #### U RCX #### [facility] [address] [place] [address] Dr. Caitlin Martinez pH (U) 6.5 [pH] Normal 5-9 [facility] Comment on above: Performed By: #### U RCX #### [facility] [address] [place] [address] Dr. Caitlin Martinez SPEC GRAVITY 1.010 Normal 1.005-<=1.025 [facility] Comment on above: Performed By: #### U RCX #### [facility] [address] [place] [address] Dr. Caitlin Martinez UA PROTEIN Negative Normal NEGATIVE/ TRACE [facility] Comment on above: Performed By: #### U RCX #### [facility] [address] [place] [address] Dr. Caitlin Martinez UR MICRO IND INDICATED Normal [facility] Comment on above: Performed By: #### U RCX #### [facility] [address] [place] [address] Dr. Caitlin Martinez Urobilinogen Qn (U) 0.2 {Barbara'U}/dL Normal 0.2 - 1. 0 [facility] Comment on above: Performed By: #### U RCX #### [facility] [address] [place] [address] Dr. Caitlin Martinez URINE MICROSCOPIC ONLYon BACTERIA TRACE Abnormal NONE SEEN [facility] Comment on above: Performed By: #### U RCX #### [facility] [address] [place] [address] Dr. Caitlin Martinez Bacteria identified Cx Nom (U) INDICATED Normal [facility] Comment on above: Performed By: #### U RCX #### [facility] [address] [place] [address] Dr. Caitlin Martinez CAST SEEN Abnormal NONE SEEN [facility] Comment on above: Performed By: #### U RCX #### [facility] [address] [place] [address] Dr. Caitlin Martinez Crystals LM Nom (Urine sed) SEEN Abnormal NONE SEEN [facility] Comment on above: Performed By: #### U RCX #### [facility] [address] [place] [address] Dr. Caitlin Martinez Epithelial cells LM Ql (Urine sed) RARE Normal NONE SEEN /RARE [facility] Comment on above: Performed By: #### U RCX #### [facility] [address] [place] [address] Dr. Caitlin Martinez MUCOUS TRACE Abnormal NONE SEEN [facility] Comment on above: Performed By: #### U RCX #### [facility] [address] [place] [address] Dr. Caitlin Martinez RBC 0-2 Normal 0-2 [facility] Comment on above: Performed By: #### U RCX #### [facility] [address] [place] [address] Dr. Caitlin Martinez WBC 2-[address] [facility] Comment on above: Performed By: #### U RCX #### [facility] [address] [place] [address] Dr. Caitlin Martinez GLUCOSE - 1HRon 11-06-2021 Glucose [Mass/Vol] 131 mg/dL Critically high 74-106 [facility] Comment on above: Performed By: #### I HORACIO #### [facility] [address] [place] [address] Dr. Caitlin Martinez HEMOGRAM AND PLATELon 2021 Hematocrit (Bld) [Volume fraction] 34.2 % Critically low 36.0-48.0 [facility] Comment on above: Performed By: #### C BC #### [facility] [address] [place] [address] Dr. Caitlin Martinez Hemoglobin (Bld) [Mass/Vol] 11.3 g/dL Critically low 12.0-16.0 [facility] Comment on above: Performed By: #### C BC #### [facility] [address] [place] [address] Dr. Caitlin Martinez MCH (RBC) [Entitic mass] 31.7 pg Normal 26.7-34.0 [facility] Comment on above: Performed By: #### C BC #### [facility] [address] [place] [address] Dr. Caitlin Martinez MCHC (RBC) [Mass/Vol] 33.0 g/dL Normal 29.9-35.2 [facility] Comment on above: Performed By: #### C BC #### [facility] [address] [place] [address] Dr. Caitlin Martinez MCV (RBC) [Entitic vol] 96.1 fL Normal 81.0-99.0 [facility] Comment on above: Performed By: #### C BC #### [facility] [address] [place] [address] Dr. Caitlin Martinez PLT 372 103/ul Normal 150-450 [facility] Comment on above: Performed By: #### C BC #### [facility] [address] [place] [address] Dr. Caitlin Martinez RBC 3.56 106/ul Critically low 4.20-5.40 [facility] Comment on above: Performed By: #### C BC #### [facility] [address] [place] [address] Dr. Caitlin Martinez WBC 10.1 103/ul Normal 4.0-11.0 [facility] Comment on above: Performed By: #### C BC #### [facility] [address] [place] [address] Dr. Caitlin Martinez CHLAMYDIA/GONOCOCCUS JONATAN (SW AB/URINE/PAPon 10-31-2021 Chlamydia trachomatis, JONATAN Negative Normal Negative [facility] Comment on above: Performed By: #### C BC #### [facility] [address] [place] [address] Dr. Caitlin Martinez Neisseria gonorrhoeae, JONATAN Negative Normal Negative [facility] Comment on above: Performed By: #### C BC #### [facility] [address] [place] [address] Dr. Caitlin Martinez VAGINITIS/VAGINOSIS DNA PROB Paramjit 10-29-2021 Selena species Negative Normal Negative [facility] Comment on above: Performed By: #### U RCX #### [facility] [address] [address] [address] Caitlin Martinez Gardnerella vaginalis Negative Normal Negative [facility] Comment on above: Performed By: #### U RCX #### [facility] [address] [address] [address] Caitlin Martinez Trichomonas vaginalis Negative Normal Negative [facility] Comment on above: Performed By: #### U RCX #### [facility] [address] [place] [address] Dr. Caitlin Martinez US PREG INCOMPLETE ANATOMYon [...] DAVID BLACKMON Date: 2021-10-26 12:05 Normal [facility] CBC W MANUAL DIFFon 10-25-19 22 ATYPICAL LYMPH # Normal [facility] Comment on above: Performed By: #### U RCX #### [facility] [address] [place] [address] Dr. Caitlin Martinez ATYPICAL LYMPH % Normal [facility] Comment on above: Performed By: #### U RCX #### [facility] [address] [place] [address] Dr. Caitlin Martinez BAND # 0.1 103/ul Normal 0.0-0.3 [facility] Comment on above: Performed By: #### U RCX #### [facility] [address] [place] [address] Dr. Caitlin Martinez BAND % 1 % Normal 0-5 [facility] Comment on above: Performed By: #### U RCX #### [facility] [address] [place] [address] Dr. Caitlin Martinez BASOM # 0.00 103/ul Normal 0.00-0.10 [facility] Comment on above: Performed By: #### U RCX #### [facility] [address] [place] [address] Dr. Caitlin Martinez BASOM % 0.0 % Critically low 0.2-2.0 [facility] Comment on above: Performed By: #### U RCX #### [facility] [address] [place] [address] Dr. Caitlin Martinez BLAST # Normal [facility] Comment on above: Performed By: #### U RCX #### [facility] [address] [place] [address] Dr. Caitlin Martinez BLAST % Normal [facility] Comment on above: Performed By: #### U RCX #### [facility] [address] [place] [address] Dr. Caitlin Martinez CORRECTED WBC Normal 4.0-11.0 [facility] Comment on above: Performed By: #### U RCX #### [facility] [address] [place] [address] Dr. Caitlin Martinez EOS # 0.12 103/ul Normal 0.00-0.70 [facility] Comment on above: Performed By: #### U RCX #### [facility] [address] [place] [address] Dr. Caitlin Martinez EOS% 1.0 % Normal 0.9-7.0 [facility] Comment on above: Performed By: #### U RCX #### [facility] [address] [place] [address] Dr. Caitlin Martinez HCT 31.5 % Critically low 36.0-48.0 [facility] Comment on above: Performed By: #### U RCX #### [facility] [address] [place] [address] Dr. Caitlin Martinez HGB 10.5 g/dl Critically low 12.0-16.0 [facility] Comment on above: Performed By: #### U RCX #### [facility] [address] [place] [address] Dr. Caitlin Martinez LYMPHM # 0.37 103/ul Critically low 1.20-3.80 [facility] Comment on above: Performed By: #### U RCX #### [facility] [address] [address] [address] Caitlin Martinez LYMPHM% 3.0 % Critically low 20.5-60.0 [facility] Comment on above: Performed By: #### U RCX #### [facility] [address] [address] [address] Caitlin Martinez MCH 31.8 pg Normal 26.7-34.0 [facility] Comment on above: Performed By: #### U RCX #### [facility] [address] [place] [address] Dr. Caitlin Martinez MCHC 33.3 g/dl Normal 29.9-35.2 [facility] Comment on above: Performed By: #### U RCX #### [facility] [address] [place] [address] Dr. Caitlin Martinez MCV 95.5 fL Normal 81.0-99.0 [facility] Comment on above: Performed By: #### U RCX #### [facility] [address] [place] [address] Dr. Caitlin Martinez METAMYELOCYTE # Normal [facility] Comment on above: Performed By: #### U RCX #### [facility] [address] [place] [address] Dr. Caitlin Martinez METAMYELOCYTE % Normal [facility] Comment on above: Performed By: #### U RCX #### [facility] [address] [place] [address] Dr. Caitlin Martinez MONOM# 0.73 103/ul Normal 0.30-0.80 [facility] Comment on above: Performed By: #### U RCX #### [facility] [address] [place] [address] Dr. Caitlin Martinez MONOM% 6.0 % Normal 1.7-12.0 [facility] Comment on above: Performed By: #### U RCX #### [facility] [address] [address] [address] Caitlin Martinez MPV 9.5 fL Normal 9.5-13.5 [facility] Comment on above: Performed By: #### U RCX #### [facility] [address] [address] [address] Caitlin Martinez MYELOCYTE # Normal [facility] Comment on above: Performed By: #### U RCX #### [facility] [address] [address] [address] Caitlin Martinez MYELOCYTE % Normal [facility] Comment on above: Performed By: #### U RCX #### [facility] [address] [place] [address] Dr. Caitlin Martinez NRBC Normal [facility] Comment on above: Performed By: #### U RCX #### [facility] [address] [place] [address] Dr. Caitlin Martinez PLT 275 103/ul Normal 150-450 [facility] Comment on above: Performed By: #### U RCX #### [facility] [address] [address] [address] Caitlin Martinez RBC 3.30 106/ul Critically low 4.20-5.40 [facility] Comment on above: Performed By: #### U RCX #### [facility] [address] [place] [address] Dr. Caitlin Martinez RDW 13.6 % Normal 11.0-15.0 [facility] Comment on above: Performed By: #### U RCX #### [facility] [address] [address] [address] Caitlin Martinez SEG # 10.86 103/ul Critically high 1.40-6.50 [facility] Comment on above: Performed By: #### U RCX #### [facility] [address] [place] [address] Dr. Caitlin Martinez SEG % 89.0 % Critically high 43.0-75.0 [facility] Comment on above: Performed By: #### U RCX #### [facility] [address] [place] [address] Dr. Caitlin Martinez WBC 12.2 103/ul Critically high 4.0-11.0 [facility] Comment on above: Performed By: #### U RCX #### [facility] [address] [place] [address] Dr. Caitlin Martinez ER URINE PROFILEon 2 Bilirubin Ql (U) Negative Normal NEGATIVE [facility] Comment on above: Performed By: #### C VDTBH #### [facility] [address] [place] [address] Dr. Caitlin Martinez Clarity (U) SL CLOUDY Abnormal CLEAR [facility] Comment on above: Performed By: #### C VDTBH #### [facility] [address] [place] [address] Dr. Caitlin Martinez Color (U) YELLOW Normal YELLOW [facility] Comment on above: Performed By: #### C VDTBH #### [facility] [address] [place] [address] Dr. Caitlin Martinez ERUAHNadine A micrscopic examination will be performed if indicated. Normal [facility] Comment on above: Performed By: #### C VDTBH #### [facility] [address] [place] [address] Dr. Caitlin Martinez Glucose Ql (U) Negative Normal NEGATIVE [facility] Comment on above: Performed By: #### C VDTBH #### [facility] [address] [place] [address] Dr. Caitlin Martinez Hemoglobin Ql (U) Negative Normal NEGATIVE [facility] Comment on above: Performed By: #### C VDTBH #### [facility] [address] [place] [address] Dr. Caitlin Martinez Ketones Ql (U) >=80 Abnormal NEGATIVE [facility] Comment on above: Performed By: #### C VDTBH #### [facility] [address] [place] [address] Dr. Caitlin Martinez LEUKOCYTES Negative Normal NEGATIVE [facility] Comment on above: Performed By: #### C VDTBH #### [facility] [address] [place] [address] Dr. Caitlin Martinez Nitrite Ql (U) Negative Normal NEGATIVE [facility] Comment on above: Performed By: #### C VDTBH #### [facility] [address] [place] [address] Dr. Caitlin Martinez pH (U) 6.0 [pH] Normal 5-9 [facility] Comment on above: Performed By: #### C VDTB #### [facility] [address] [place] [address] Dr. Caitlin Martinez SPEC GRAVITY 1.020 Normal 1.005-<=1.025 [facility] Comment on above: Performed By: #### C VDTB #### [facility] [address] [place] [address] Dr. Caitlin Martinez UA PROTEIN Negative Normal NEGATIVE/ TRACE [facility] Comment on above: Performed By: #### C VDTBH #### [facility] [address] [place] [address] Dr. Caitlin Martinez UR MICRO IND NOT INDICATED Normal [facility] Comment on above: Performed By: #### C VDTBH #### [facility] [address] [place] [address] Dr. Caitlin Martinez Urobilinogen Qn (U) 1.0 {Barbara'U}/dL Normal 0.2 - 1. 0 [facility] Comment on above: Performed By: #### C VDTBH #### [facility] [address] [place] [address] Dr. Caitlin Martinez INFLUENZA A AND B [facility]on 10[facility] Normal [facility] Comment on above: Result Comment: Nega tive for Flu B protein antigen. Infection due to Flu B cannot be ruled out. Flu B antigen in the sample may be below the detection limit of the test. Performed By: #### C VDTBH #### [facility] [address] [place] [address] Dr. Caitlin Martinez INFLUENZA A AG Positive Abnormal NEGATIVE SEE COMMENT [facility] Comment on above: Performed By: #### C VDTBH #### [facility] [address] [place] [address] Dr. Caitlin Martinez INFLUENZA B AG Negative Normal NEGATIVE SEE COMMENT [facility] Comment on above: Performed By: #### C VDTBH #### [facility] [address] [place] [address] Dr. Caitlin Martinez INFLUPOSH SEE BELOW Normal [facility] Comment on above: Result Comment: NOTE : Live attenuated influenzae vaccine viruses can cause a positive result for a rapid influenza diagnostic test if administered up to 7 days prior to rapid testing. Performed By: #### C VDTBH #### [facility] [address] [place] [address] Dr. Caitlin Martinez INTERNAL CONTROLS Within Normal Limits Normal Wi thin Normal Limits [facility] Comment on above: Performed By: #### C VDTBH #### [facility] [address] [place] [address] Dr. Caitlin Martinez PROF CHEM 8 (BAS METB)on Anion gap [Moles/Vol] 14.4 mmol/L Normal [facility] Comment on above: Performed By: #### D IRCMB, ABID #### [facility] [address] [place] [address] Dr. Caitlin Martinez Calcium [Mass/Vol] 8.4 mg/dL Critically low 8.5-10.1 [facility] Comment on above: Performed By: #### D IRCMB, ABID #### [facility] [address] [place] [address] Dr. Caitlin Martinez Chloride [Moles/Vol] 101 mmol/L Normal 98-107 [facility] Comment on above: Performed By: #### D IRCMB, ABID #### [facility] [address] [place] [address] Dr. Caitlin Martinez CO2 [Moles/Vol] 19.7 mmol/L Critically low 21.0-32.0 [facility] Comment on above: Performed By: #### D IRCMB, ABID #### [facility] [address] [place] [address] Dr. Caitlin Martinez Creatinine [Mass/Vol] 0.55 mg/dL Normal 0.55-1.02 [facility] Comment on above: Performed By: #### D IRCMB, ABID #### [facility] [address] [address] [address] Caitlin Martinez EGFR-AF ZIMBABWEAN >60 Normal >=60 [facility] Comment on above: Performed By: #### D IRCMB, ABID #### [facility] [address] [address] [address] Caitlin Martinez EGFR-NON AF ZIMBABWEAN >60 Normal >=60 [facility] Comment on above: Performed By: #### D IRCMB, ABID #### [facility] [address] [place] [address] Dr. Caitlin Martinez Glucose [Mass/Vol] 91 mg/dL Normal 74-106 [facility] Comment on above: Performed By: #### D IRCMB, ABID #### [facility] [address] [place] [address] Dr. Caitlin Martinez Potassium [Moles/Vol] 3.1 mmol/L Critically low 3.5-5.1 [facility] Comment on above: Performed By: #### D IRCMB, ABID #### [facility] [address] [place] [address] Dr. Caitlin Martinez Sodium [Moles/Vol] 132 mmol/L Critically low 136-145 [facility] Comment on above: Performed By: #### D IRCMB, ABID #### [facility] [address] [place] [address] Dr. Caitlin Martinez Urea nitrogen [Mass/Vol] 7.0 mg/dL Normal 7.0-18.0 [facility] Comment on above: Performed By: #### D IRCMB, ABID #### [facility] [address] [place] [address] Dr. Caitlin Martinez Urea nitrogen/Creatinine [Mass ratio] 12.7 mg/mg Normal [facility] Comment on above: Performed By: #### D IRCMB, ABID #### [facility] [address] [address] [address] Caitlin Martinez US PREG ANATOMY SINGLEon [...] by: DAVID BLACKMON Date: 2021-09-28 09:[address] [facility] CHEMISTRYOrdered By: SYSTEM SYSTEM on 06-21-2021 [place] [address] m[IU]/mL High 1 - 3 mIU/mL [facility] Remisol XR LUMBAR SPINE 2-3 VIEWS (S [...] gas pattern is nonobstructive. There is a cyvoavgp-nk-ifvgm amount of stool burden. IMPRESSION: No malalignment. No acute compression deformity. Aqcknqvo-qx-spugl amount of stool burden. [employer] Workstation ID: [id number] Dictated by: LUBA GARCÍA on [facility] Mar 05, 2020 4:09:51 PM EDT Transcribed by: KELVIN GUADALUPE on [facility] Mar 05, 2020 4:17:18 PM EDT Finalized by: LUBA GARCÍA on [facility] Mar 05, 2020 7:52:11 PM EDT [facility] Comment on above: Order Comment: Injur y/Trauma or Illness?:Illness/Other How long have you had these symptoms (acute/chronic)?:Chronic Reason for exam?:low back pain History of cancer?:n Surgeries, chemotherapy, or radiation?:n Type of Exam?:Initial Additional signs and symptoms?:fibromyalgia XR Lumbar Spine 2-3 Views (S tandard)on 03-05-2020 No malalignment. No acute compression deformity. Ajpszqek-xu-jiexw amount of stool burden. [employer] Workstation ID: [id number] [facility] EXAMINATION: XR LUMBAR SPINE 2-3 VIEWS [...] gas pattern is nonobstructive. There is a yyqutctb-of-rpycx amount of stool burden. [facility] Interface, Rad In [place] Speechq [...] gas pattern is nonobstructive. There is a enxcykue-zo-sraen amount of stool burden. IMPRESSION: No malalignment. No acute compression deformity. Zzlhcqxr-ei-osymh amount of stool burden. [employer] Workstation ID: [id number] [facility] CNOVon 10-28-2018 CNOV Office Visit (OLVIN ) SANDY GODINEZ ([id number]) 1995 F Date Time Provider Department 10/28/18 [...] Garcia MD REFERRING PROVIDER: Farrah Garcia MD [address] [facility] [id number] Consult requested for an opinion regarding the [...] TIME: 12:44 PM Referring Provider: FARRAH GARCIA [[id number]] Allergies As of Date: 10/28/2018 (No Known [...] by WARREN RODRIGUEZ MD on 10/29/18 Normal [facility] PROGRESSon 10-28-2018 Protein mass conc HNO ID: [id number] Author: Warren Reddy Esa Service: ? Author Type: Physician Type: Progress Notes Filed: 10/29/2018 3:03 PM Note Text: VASCULAR SURGERY INITIAL CONSULT SERVICE DATE: 10/28/2018 SERVICE TIME: 12:44 PM PRIMARY CARE PHYSICIAN: Farrah Garcia MD REFERRING PROVIDER: Farrah Garcia MD [address] [facility] [id number] Consult requested for an opinion regarding the [...] October 28, 2018 TIME: 12:44 PM Normal [facility] Vital Signs Date Time Vital Sign Value Performing Clinician Chiquis zaragoza 07-19-2023 09:31-0500 Body mass index (BMI) [Ratio] 26.79 kg/m2 [facility] Nurse [facility] 07-19-2023 09:31-0500 Body weight 73.03 kg [facility] Nurse [facility] 07-19-2023 09:31-0500 Diastolic blood pressure 72 mm[Hg] [facility] Nurse [facility] 07-19-2023 09:31-0500 Systolic blood pressure 118 mm[Hg] [facility] Nurse [facility] Encounters Encounter Date Encounter Type Care Provider [...] End: 11-08-2023 ambulatory JOSE MIGUEL R JUSTEN [facility] Start: 10-15-2023 End: 10-15-2023 ambulatory JOSE MIGUEL [...] Not Available Start: 07-08-2023 ambulatory Royer Layne acility:[facility] Start: 07-02-2023 End: 07-02-2023 ambulatory JOSE MIGUEL [...] 06-21-2021 End: 09-19-2021 Recurring Jose Miguel CAMPUZANO [facility] Start: 03-05-2020 End: 03-06-2020 Patient encounter procedure [facility] Start: 03-05-2020 End: 03-05-2020 Subsequent hospital visit by physician [facility] Work Phone: [facility] Comment on above: Chronic low back [...] encounter procedure 08/19/2023 11:10 AM EST Routine [facility] [address] [place] [id number] Jose Miguel Campuzano, DO [address] [place] [address] [facility] Start: 07-19-2023 End: 07-19-2024 ABO/Rh ABO/Rh Lab Routine Missed menses Expected: 07/19/2023 (Approximate), Expires: 07/19/2024 [facility] Comment on above: Expected: 07/19/2023 (Approximate), Expires: 07/19/2024 Start: 07-19-2023 End: 07-19-2024 Blood type and Indirect antibody screen panel - Blood Type and screen Lab Routine Missed menses Expected: 07/19/2023 (Approximate), Expires: 07/19/2024 [facility] Work Phone: Comment on above: Expected: 07/19/2023 (Approximate), Expires: 07/19/2024 Start: 07-19-2023 End: 07-19-2024 US Pelvis transvaginal US OB transvaginal Imaging Routine Missed menses Expected: 07/19/2023 (Approximate), Expires: 07/19/2024 [facility] Comment on above: Expected: 07/19/2023 (Approximate), Expires: 07/19/2024 Start: 02-16-2020 Influenza vaccinatio n given Sequential Influenza Vaccine (#1) [facility] Start: 2014 Hepatitis C antibody , confirmatory test Hepatitis C Screening [facility] Start: 08-31-2011 HIV screening HIV Screening [facility] Start: 08-31-2007 Vaccination for [place] papillomavirus HPV Vaccines (1 - 2-dose series) [facility] Start: 08-31-1999 History and physical examination, annual for health maintenance Wellness Visit [facility] Start: 1996 Screening for Chlamy tristan trachomatis Chlamydia Screening [facility] Start: 1996 Screening for malign ant neoplasm of cervix Pap Smear [facility] Start: 1996 Tetanus vaccination Tetanus: Every 1 0yrs [facility] Bacteria identified in Urine by Culture Urine culture Microbiology Routine Missed menses Ordered: 07/19/2023 [facility] Comment on above: Ordered: 07/19/2023 CBC W Auto Different ial panel - Blood CBC and differential Lab Routine Missed menses Ordered: 07/19/2023 [facility] Comment on above: Ordered: 07/19/2023 Hemoglobin A1c measurement Hemoglobin A1c Lab Routine Missed menses Ordered: 07/19/2023 [facility] Comment on above: Ordered: 07/19/2023 Hepatitis B virus knight rface Ag [Presence] in Serum or Plasma by Immunoassay Hepatitis B surface antigen Lab Routine Missed menses Ordered: 07/19/2023 [facility] Comment on above: Ordered: 07/19/2023 Hepatitis C virus Ab [Presence] in Serum or Plasma by Immunoassay Hepatitis C antibody Lab Routine Missed menses Ordered: 07/19/2023 [facility] Comment on above: Ordered: 07/19/2023 HIV-1/HIV-2 antigen/antibody combination immunoassay HIV-1 and HIV-2 antibodies Lab Routine Missed menses Ordered: 07/19/2023 [facility] Comment on above: Ordered: 07/19/2023 Reagin Ab [Presence] in Serum by RPR RPR Lab Routine Missed menses Ordered: 07/19/2023 [facility] Comment on above: Ordered: 07/19/2023 Rubella antibody, IgG Rubella an tibody, IgG Lab Routine Missed menses Ordered: 07/19/2023 [facility] Comment on above: Ordered: 07/19/2023 Payers Date Payer Category Payer Self-pay 2022 Medicaid [employer] [place] [id number] 2022-Present [address] [place] [address] [id number]. [id number] 1995 Unknown [id number] 2.16.840.1.288962.3.579.2.903 1995 Unknown [id number] 2.16.840.1.356695.3.579.2.593 1996 Unknown [id number] 2.16.840.1.755406.3.579.2.593 1996 Unknown [id number] 2.16.840.1.731212.3.579.2.593 1996 Unknown [id number] 2.16.840.1.433453.3.579.2.593 1996 Unknown [id number] 2.16.840.1.554567.3.579.2.593 1996 Unknown [id number] 2.16.840.1.909778.3.579.2.593 1996 Unknown [id number] 2.16.840.1.308263.3.579.2.593 1996 Unknown [id number] 2.16.840.1.140807.3.579.2.593 1996 Unknown [id number] 2.16.840.1.547858.3.579.2.593 1996 Unknown [id number] 2.16.840.1.401465.3.579.2.593 1996 Unknown [id number] 2.16.840.1.580096.3.579.2.593 1996 Unknown [id number] 2.16.840.1.074055.3.579.2.593 1996 Unknown [id number] 2.16.840.1.382811.3.579.2.593 1996 Unknown [id number] 2.16.840.1.925217.3.579.2.593 1996 Unknown [id number] 2.16.840.1.421123.3.579.2.593 1996 Unknown [id number] 2.16.840.1.972339.3.579.2.593 1996 Unknown [id number] 2.16.840.1.477867.3.579.2.593 1996 Unknown [id number] 2.16.840.1.803819.3.579.2.593 1996 Unknown [id number] 2.16.840.1.196954.3.579.2.593 1996 Unknown [id number] 2.16.840.1.399136.3.579.2.593 1996 Unknown [id number] 2.16.840.1.727035.3.579.2.593 1996 Unknown [id number] 2.16.840.1.131298.3.579.2.1286 1996 Unknown [id number] 2.16.840.1.524779.3.579.2.1286 1996 Unknown [id number] 2.16.840.1.865388.3.579.2.1259 1996 Unknown [id number] 2.16.840.1.113945.3.579.2.1259 1996 Unknown [id number] 2.16.840.1.434773.3.579.2.1259 1996 Unknown [id number] 2.16.840.1.534094.3.579.2.9 1996 Unknown [id number] 2.16.840.1.446409.3.579.2.9 1996 Unknown [id number] 2.16.840.1.238021.3.579.2.1258 1996 Unknown [id number] 2.16.840.1.975963.3.579.2.1258 1996 Unknown [id number] 2.16.840.1.029536.3.579.2.1258 1996 Unknown [id number] 2.16.840.1.075386.3.579.2.1258 1996 Unknown [id number] 2.16.840.1.897311.3.579.2.1259 1959 Unknown [id number] 1959 Unknown [id number] Unknown COMMERCIAL COMME RCIAL MISCELLANEOUS [id number] Effective for all dates [id number] 1.2.840.147073.1.13.385.2.7.3. 806806.315 Unknown [id number] Unknown [id number] 2.16.840.1.354026.3.579.2.531 Social History Date Type Detail Facility Tobacco smoking stat [facility] Unknown if ever smoked [facility] Sex Assigned At Not on file [facility] Start: 12-07-2022 Sex Assigned At Female [facility] Start: 12-07-2022 Tobacco smoking status NHIS Never smoked tobacco [facility] Start: 07-19-2023 Alcohol intake Current drinker of alcohol (finding) [facility] Start: 12-07-2022 History of Social function [facility] Start: 12-07-2022 Alcohol Comment 1-2 drinks less than monthly in the past year [facility] Start: 05-31-2023 [facility] Start: 1995 Sex Assigned At Female [facility] Start: 11-29-2022 Gender identity Identifies as female gender (finding) [facility] Start: 11-29-2022 Sexual orientation Heterosexual (finding) [facility] History of Present illness Narrative [...] Procedure Laterality Date DILATION AND CURETTAGE 2018 [place] TONSILLECTOMY & ADENOIDECTOMY AGE 13/> 2015 WISDOM [...] sent for nausea to pharmacy. Pt desires [place] [address] and understands to have it done at 10 weeks along w/her labs. Follow Up: Patient is to have labs drawn at directed and return to office for initial OB appointment with provider. Patient may call office as needed with any concerns or questions. Nurse Visit Completed by: Cori Daniel MA documented in this encounter [facility] Clinical Note 01-16-2022 Note Date & [...] authenticated by: Cecelia FOOTE Date: 2022-01-16 21:33 [facility] Clinical Note 01-16-2022 Note Date & [...] authenticated by: Cecelia FOOTE Date: 2022-01-16 21:33 [facility] Clinical Note 01-15-2022 Note Date & [...] by: IGOR DIAZ Date: 2022-01-15 10:10 [facility] Evaluation + Plan note Note Date & Type Note Facility Evaluation + Plan note No data available for this section [facility] Evaluation note Note Date & Type Note Facility Evaluation note Diagnosis Missed menses Nausea Nausea alone documented in this encounter [facility] Hospital Discharge instructions Note Date & Type Note Facility Hospital Discharge instructions No data available for this section [facility] Summary Purpose Family History No Family History Records FoundNo Family History Records FoundNo Family History Records FoundNo Family History Records FoundNo Family History Records FoundNo Family History Records FoundNo Family History Records Found Advance Directives No Advanced Directives Records FoundDocuments on File Type Date Recorded Patient [facility] Expl anation Advance Directives and Livin g Will 03/05/2020 2:18 PM Assessments Diagnosis Chronic low back pain, unspecified back pain laterality, unspecified whether sciatica present Additional Source Comments INFORMATION SOURCE (unrecogn ized section and content) DATE CREATED AUTHOR 11/08/2018 [facility] DATE CREATED AUTHOR AUTHOR'S ORGANIZ ATION 03/21/2020 [facility] DATE CREATED AUTHOR AUTHOR'S ORGANIZ ATION 08/04/2022 [facility] DATE CREATED AUTHOR AUTHOR'S ORGANIZ ATION 09/06/2022 [facility] DATE CREATED AUTHOR AUTHOR'S ORGANIZ ATION 09/17/2023 [facility] DATE CREATED AUTHOR AUTHOR'S ORGANIZ ATION 11/09/2023 [facility] DATE CREATED AUTHOR AUTHOR'S ORGANIZ ATION 01/09/2024 [facility] Special[facility] Reason for Visit (unrecogniz ed section and [...] BE BASED ON THE PRIMARY CLINICAL RECORDS. [facility] provides no warranty or guarantee of the accuracy or completeness of information in this document.
[2024-01-11 20:47] VITALS: BP 130/71; PULSE 109; TEMP 36.5
[2024-01-11 20:59] LABS: Bilirubin Urine NEGATIVE (NEGATIVE); Blood Urine NEGATIVE (NEGATIVE); Clarity Urine CLEAR (CLEAR); Color Urine YELLOW (YELLOW); Glucose Urine UA NEGATIVE (NEGATIVE); Ketones Urine NEGATIVE (NEGATIVE); Leukocyte Esterase Urine NEGATIVE (NEGATIVE); Nitrite Urine NEGATIVE (NEGATIVE); Protein Urine NEGATIVE (NEG/TRACE); Specific Gravity Urine >=1.030 (1.005-1.025); Urine Microscopic Indicated NO
== END 2024-01-11 21:35 | disposition home or self-care (01) ==
LOC: FBC 20:32
PROVIDERS: Admitting Provider Obstetrics & Gynecology; PCP Nurse Practitioner Family; Visit Provider Obstetrics & Gynecology
DX: O47.03 False labor before 37 completed weeks of gestation, third trimester (principal); Z3A.34 34 weeks gestation of pregnancy
CPT/HCPCS: 59025; 81003; G0378; G0379

== ENCOUNTER 2024-01-13 07:02 | Outpatient (OUT) | payer OTHER, SELFPAY ==
--- NOTE | 2024-01-13 | US_ITS ---
[address] [address] Patient Name: SANDY GODINEZ MRN: [id number] date: 1995 Sex: F Assigned Patient Location: US Current Patient Location: Accession/Order Number: [id number] Exam Date: 01/13/2024 11:40 Report Date: 01/13/2024 14:44 At the request of: JOSE MIGUEL BOATENG Procedure: US OB umbilical artery EXAMINATION: US OB umbilical artery HISTORY: Two vessel cord O09.899 COMPARISON: No relevant comparison available. TECHNIQUE: Duplex Doppler evaluation of the umbilical arteries. FINDINGS: HEART RATE: 139 bpm UMBILICAL ARTERIES: 1 GESTATIONAL AGE: 34 weeks 3 days WAVEFORM: Normal upstroke. No notching. Forward flow in diastole. PEAK SYSTOLIC VELOCITY: 126 cm/s END DIASTOLIC VELOCITY: 59 cm/s SYST/DIAST RATIO (S:D): 2.2 RESISTIVE INDEX: 0.53 US/US OB umbilical artery IMPRESSION: 1. Class 0 = Normal umbilical artery blood velocity Electronically authenticated by: DAVID BLACKMON Date: 01/13/2024 14:44
--- OUTSIDE RECORDS SUMMARY | 2024-01-13 07:06 | XMS_ITS | CCD ---
Author Organization [facility] Care Team Providers Care Flight Crew Time Clerk Name Role Phone Farrah Garcia Primary Care [...] (1 source) Desonide Drug Allergy 9 [facility] Repository (2 sources) Wound Dressing Adhesive Drug [...] 02-15-2022 Episodic Other aftercare (1 source) Other fpc (current) 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; 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: [[facility] CURRENT DRUG THERAPY] Onset: 02-05-2022 Episodic Other [...] WITH AUTO DIFFon BASOPHILS ABSOLUTE AUTO 0.1 [facility] Basophils/100 WBC (Bld) 0.7 % 0.2 - 2.0 % [facility] Eosinophils/100 WBC (Bld) 2.6 % 0.9 - 7.0 % [facility] Erythrocyte distribution width (RBC) [Ratio] 13.4 % 11.0 - 15.0 % [facility] Hematocrit (Bld) [Volume fraction] 39.0 % 36.0 - 48.0 % [facility] Hemoglobin (Bld) [Mass/Vol] 12.8 g/dL 12.0 - 16.0 g/dL [facility] IMMATURE GRANULOCYTES ABS AUTO 0.01 [facility] Immature granulocytes/100 WBC (Bld) 0.1 % 0.0 - 0.5 % [facility] LYMPHOCYTES ABSOLUTE AUTO 2.2 [facility] Lymphocytes/100 WBC (Bld) 26.1 % 20.5 - 60.0 % [facility] MCH (RBC) [Entitic mass] 28.6 pg 26.7 - 34.0 pg [facility] MCHC (RBC) [Mass/Vol] 32.8 g/dL 29.9 - 35.2 g/dL [facility] MCV (RBC) [Entitic vol] 87.2 fL 81.0 - 99.0 fL [facility] MONOCYTES ABSOLUTE AUTO 0.5 [facility] Monocytes/100 WBC (Bld) 5.7 % 1.7 - 12.0 % [facility] NEUTROPHILS ABSOLUTE AUTO 5.5 [facility] Neutrophils/100 WBC (Bld) 64.8 % 43.0 - 75.0 % [facility] Platelet mean volume (Bld) [Entitic vol] 10.1 fL 9.5 - 13.5 fL [facility] TBH EO # 0.2 [facility] PLT 340 [facility] RBC 4.47 [facility] WBC 8.4 [facility] HCG ( test) Ql (U)o n 07-19-2023 Interpretation and review of laboratory results Abnormal [facility] Preg Test, Ur Positive [facility] Urinalysis macro (dipstick) panel (U)on 07-19-2023 Bilirubin, UA Negative Negative - 4(70) +++ mg/dL [facility] Blood, UA Positive Negative - 50 Anselmo/mcL [facility] Comment on above: moderate Clarity, UA Clear [facility] Color, UA Rich [facility] Glucose, UA Negative Negative - 1999(110) ++++ mg/dL [facility] Interpretation and review of laboratory results Abnormal [facility] Ketones, UA Positive Negative - 160(16) ++++ mg/dL [facility] Comment on above: trace Leukocytes, UA Positive Negative - 500+++ Monik/mcL [facility] Comment on above: small Nitrite, UA Negative Negative - Positive [facility] pH, UA 6.0 5 - 9 [facility] Protein, UA Positive Negative - 1999(20) ++++ mg/dL [facility] Comment on above: 30 Spec Grav, UA 1.030 1 - 1.03 [facility] Urobilinogen, UA 1.0 0.2 - 12 mg/dL [facility] In office Testingon 09-07-19 23 In office Testing [id number]# 1.00CD:127 Normal [facility] CBC AUTO DIFFon 07-30-2022 BASO # 0.1 103/ul Normal 0.0-0.1 [facility] Comment on above: Performed By: #### U RCX #### [facility] [address] [place] [address] Dr. Caitlin Martinez Basophils/100 WBC (Bld) 1.1 % Normal 0.2-2.0 [facility] Comment on above: Performed By: #### U RCX #### [facility] [address] [place] [address] Dr. Caitlin Martinez EO # 0.3 103/ul Normal 0.0-0.7 [facility] Comment on above: Performed By: #### U RCX #### [facility] [address] [place] [address] Dr. Caitlin Martinez Eosinophils/100 WBC (Bld) 4.7 % Normal 0.9-7.0 [facility] Comment on above: Performed By: #### U RCX #### [facility] [address] [place] [address] Dr. Caitlin Martinez Erythrocyte distribution width (RBC) [Ratio] 14.7 % Normal 11.0-15.0 [facility] Comment on above: Performed By: #### U RCX #### [facility] [address] [place] [address] Dr. Caitlin aMrtinez Hematocrit (Bld) [Volume fraction] 39.3 % Normal 36.0-48.0 [facility] Comment on above: Performed By: #### U RCX #### [facility] [address] [place] [address] Dr. Caitlin Martinez Hemoglobin (Bld) [Mass/Vol] 12.7 g/dL Normal 12.0-16.0 [facility] Comment on above: Performed By: #### U RCX #### [facility] [address] [place] [address] Dr. Caitlin Martinez IG # 0.02 10e3/ul Normal 0.00-0.03 [facility] Comment on above: Performed By: #### U RCX #### [facility] [address] [place] [address] Dr. Caitlin Martinez IG % 0.3 % Normal 0.0-0.5 [facility] Comment on above: Performed By: #### U RCX #### [facility] [address] [place] [address] Dr. Caitlin Martinez LYMPH # 2.5 103/ul Normal 1.2-3.8 [facility] Comment on above: Performed By: #### U RCX #### [facility] [address] [place] [address] Dr. Caitlin Martinez Lymphocytes/100 WBC (Bld) 34.5 % Normal 20.5-60.0 [facility] Comment on above: Performed By: #### U RCX #### [facility] [address] [place] [address] Dr. Caitlin Martinez MANUAL DIFF REQ NO Normal [facility] Comment on above: Performed By: #### U RCX #### [facility] [address] [place] [address] Dr. Caitlin Martinez MCH (RBC) [Entitic mass] 27.3 pg Normal 26.7-34.0 [facility] Comment on above: Performed By: #### U RCX #### [facility] [address] [place] [address] Dr. Caitlin Martinez MCHC (RBC) [Mass/Vol] 32.3 g/dL Normal 29.9-35.2 [facility] Comment on above: Performed By: #### U RCX #### [facility] [address] [place] [address] Dr. Caitlin Martinez MCV (RBC) [Entitic vol] 84.5 fL Normal 81.0-99.0 [facility] Comment on above: Performed By: #### U RCX #### [facility] [address] [place] [address] Dr. Caitlin Martinez MONO # 0.5 103/ul Normal 0.3-0.8 [facility] Comment on above: Performed By: #### U RCX #### [facility] [address] [place] [address] Dr. Caitlin Martinez Monocytes/100 WBC (Bld) 7.3 % Normal 1.7-12.0 [facility] Comment on above: Performed By: #### U RCX #### [facility] [address] [place] [address] Dr. Caitlin Martinez NEUT # 3.8 103/ul Normal 1.4-6.5 [facility] Comment on above: Performed By: #### U RCX #### [facility] [address] [place] [address] Dr. Caitlin Martinez Neutrophils/100 WBC (Bld) 52.1 % Normal 43.0-75.0 [facility] Comment on above: Performed By: #### U RCX #### [facility] [address] [place] [address] Dr. Caitlin Martinez Platelet mean volume (Bld) [Entitic vol] 9.0 fL Critically low 9.5-13.5 [facility] Comment on above: Performed By: #### U RCX #### [facility] [address] [place] [address] Dr. Caitlin Martinez PLT 368 103/ul Normal 150-450 [facility] Comment on above: Performed By: #### U RCX #### [facility] [address] [place] [address] Dr. Caitlin Martinez RBC 4.65 106/ul Normal 4.20-5.40 [facility] Comment on above: Performed By: #### U RCX #### [facility] [address] [place] [address] Dr. Caitlin Martinez WBC 7.2 103/ul Normal 4.0-11.0 [facility] Comment on above: Performed By: #### U RCX #### [facility] [address] [place] [address] Dr. Caitlin Martinez IRONon 07-30-2022 Iron [Mass/Vol] 43.0 ug/dL Critically low 50.0-170.0 [facility] Comment on above: Performed By: #### U RCX #### [facility] [address] [place] [address] Dr. Caitlin Martinez PAP ACOG PANEL 2: 22 to 30on 07-30-2022 . . Normal [facility] Comment on above: Performed By: #### U RCX #### [facility] [address] [place] [address] Dr. Caitlin Martinez Age Gdln ACOG Testing - [facility] Comment on above: Performed By: #### U RCX #### [facility] [address] [place] [address] Dr. Caitlin Martinez DIAGNOSIS: Comment [facility] Comment on above: Result Comment: NEGA TIVE FOR INTRAEPITHELIAL LESION OR MALIGNANCY. Performed By: #### U RCX #### [facility] [address] [place] [address] Dr. Caitlin Martinez Methodology: Comment [facility] Comment on above: Result Comment: This liquid based ThinPrep(R) pap test was screened with the use of an image guided system. Performed By: #### U RCX #### [facility] [address] [place] [address] Dr. Caitlin Martinez Note: Comment [facility] Comment on above: Result Comment: The Pap smear is a screening test designed to aid in the detection of premalignant and malignant conditions of the uterine cervix. It is not a diagnostic procedure and should not be used as the sole means of detecting cervical cancer. Both false-positive and false-negative reports do occur. . Performed By: #### U RCX #### [facility] [address] [place] [address] Dr. Caitlin Martinez Performed by: Comment [facility] Comment on above: Result Comment: Bhavna Cormier, Floor Covering Contractor (ASCP) Performed By: #### U RCX #### [facility] [address] [place] [address] Dr. Caitlin Martinez Reflex Criteria: Comment [facility] Comment on above: Result Comment: The HPV DNA reflex criteria were not met with this specimen result therefore, no HPV testing was performed. . Performed By: #### U RCX #### [facility] [address] [place] [address] Dr. Caitlin Martinez Specimen adequacy: Comment Normal [facility] Comment on above: Result Comment: Sati sfactory for evaluation. Endocervical and/or squamous metaplastic cells (endocervical component) are present. Performed By: #### U RCX #### [facility] [address] [place] [address] Dr. Caitlin Martinez INSULINon 04-19-2022 Insulin 9.1 uIU/mL Normal 2.6-24.9 [facility] Comment on above: Performed By: #### I HORACIO #### [facility] [address] [place] [address] Dr. Caitlin Martinez CBC AUTO DIFFon 04-18-2022 BASO # 0.1 103/ul Normal 0.0-0.1 [facility] Comment on above: Performed By: #### U RCX #### [facility] [address] [place] [address] Dr. Caitlin Martinez Basophils/100 WBC (Bld) 1.0 % Normal 0.2-2.0 [facility] Comment on above: Performed By: #### U RCX #### [facility] [address] [place] [address] Dr. Caitlin Martinez EO # 0.3 103/ul Normal 0.0-0.7 [facility] Comment on above: Performed By: #### U RCX #### [facility] [address] [place] [address] Dr. Caitlin Martinez Eosinophils/100 WBC (Bld) 4.1 % Normal 0.9-7.0 [facility] Comment on above: Performed By: #### U RCX #### [facility] [address] [place] [address] Dr. Caitlin Martinez Erythrocyte distribution width (RBC) [Ratio] 16.0 % Critically high 11.0-15.0 [facility] Comment on above: Performed By: #### U RCX #### [facility] [address] [address] [address] Caitlin Martinez Hematocrit (Bld) [Volume fraction] 35.7 % Critically low 36.0-48.0 [facility] Comment on above: Performed By: #### U RCX #### [facility] [address] [place] [address] Dr. Caitlin Martinez Hemoglobin (Bld) [Mass/Vol] 10.9 g/dL Critically low 12.0-16.0 [facility] Comment on above: Performed By: #### U RCX #### [facility] [address] [address] [address] Caitlin Martinez IG # 0.07 10e3/ul Critically high 0.00-0.03 [facility] Comment on above: Performed By: #### U RCX #### [facility] [address] [place] [address] Dr. Caitlin Martinez IG % 1.0 % Critically high 0.0-0.5 [facility] Comment on above: Performed By: #### U RCX #### [facility] [address] [address] [address] Caitlin Martinez LYMPH # 2.3 103/ul Normal 1.2-3.8 [facility] Comment on above: Performed By: #### U RCX #### [facility] [address] [place] [address] Dr. Caitlin Martinez Lymphocytes/100 WBC (Bld) 31.4 % Normal 20.5-60.0 [facility] Comment on above: Performed By: #### U RCX #### [facility] [address] [place] [address] Dr. Caitlin Martinez MANUAL DIFF REQ NO Normal [facility] Comment on above: Performed By: #### U RCX #### [facility] [address] [place] [address] Dr. Caitlin Martinez MCH (RBC) [Entitic mass] 24.8 pg Critically low 26.7-34.0 [facility] Comment on above: Performed By: #### U RCX #### [facility] [address] [address] [address] Caitlin Martinez MCHC (RBC) [Mass/Vol] 30.5 g/dL Normal 29.9-35.2 [facility] Comment on above: Performed By: #### U RCX #### [facility] [address] [address] [address] Caitlin Martinez MCV (RBC) [Entitic vol] 81.1 fL Normal 81.0-99.0 [facility] Comment on above: Performed By: #### U RCX #### [facility] [address] [place] [address] Dr. Caitlin Martinez MONO # 0.5 103/ul Normal 0.3-0.8 [facility] Comment on above: Performed By: #### U RCX #### [facility] [address] [place] [address] Dr. Caitlin Martinez Monocytes/100 WBC (Bld) 6.6 % Normal 1.7-12.0 [facility] Comment on above: Performed By: #### U RCX #### [facility] [address] [place] [address] Dr. Caitlin Martinez NEUT # 4.1 103/ul Normal 1.4-6.5 [facility] Comment on above: Performed By: #### U RCX #### [facility] [address] [place] [address] Dr. Caitlin Martinez Neutrophils/100 WBC (Bld) 55.9 % Normal 43.0-75.0 [facility] Comment on above: Performed By: #### U RCX #### [facility] [address] [place] [address] Dr. Caitlin Martinez Platelet mean volume (Bld) [Entitic vol] 9.4 fL Critically low 9.5-13.5 [facility] Comment on above: Performed By: #### U RCX #### [facility] [address] [place] [address] Dr. Caitlin Martinez PLT 369 103/ul Normal 150-450 [facility] Comment on above: Performed By: #### U RCX #### [facility] [address] [address] [address] Caitlin Martinez RBC 4.40 106/ul Normal 4.20-5.40 [facility] Comment on above: Performed By: #### U RCX #### [facility] [address] [address] [address] Caitlin Martinez WBC 7.3 103/ul Normal 4.0-11.0 [facility] Comment on above: Performed By: #### U RCX #### [facility] [address] [address] [address] Caitlin Martinez FREE THYROXINE INDEX T7on FTI 2.20 Normal 1.30-4.50 [facility] Comment on above: Performed By: #### I HORACIO #### [facility] [address] [place] [address] Dr. Caitlin Martinez T3U 29.0 % Critically low 30.0-39.0 [facility] Comment on above: Performed By: #### I HORACIO #### [facility] [address] [address] [address] Caitlin Martinez T4 [Mass/Vol] 7.60 ug/dL Normal 4.80-13.90 [facility] Comment on above: Performed By: #### I HORACIO #### [facility] [address] [place] [address] Dr. Caitlin Martinez GLYCOHEMOGLOBIN A1Con 2021 ADA RECOMMENDATION SEE BELOW Normal [facility] Comment on above: Result Comment: ADA RECOMMENDED LIMIT 4.0 - 6.0 ADA THERAPEUTIC TARGET < 7.0 ACTION SUGGESTED > 7.0 Performed By: #### U RCX #### [facility] [address] [address] [address] Caitlin Martinez Glucose [Mass/Vol] 97 mg/dL Normal [facility] Comment on above: Performed By: #### U RCX #### [facility] [address] [address] [address] Caitlin Martinez HbA1c (Bld) [Mass fraction] 5.0 % Normal 4.5-6.2 [facility] Comment on above: Performed By: #### U RCX #### [facility] [address] [address] [address] Caitlin Martinez IRONon 04-18-2022 Iron [Mass/Vol] 35.0 ug/dL Critically low 50.0-170.0 [facility] Comment on above: Performed By: #### I HORACIO #### [facility] [address] [address] [address] Caitlin Martinez LIPID PROFILEon 04-18-2022 CHOL-HDL RATIO NORM SEE BELOW Normal [facility] Comment on above: Result Comment: 3.3 - 4.4 LOW RISK 4.4 - 7.1 AVERAGE RISK 7.1 - 11.0 MODERATE RISK >11.0 HIGH RISK Performed By: #### I HORACIO #### [facility] [address] [place] [address] Dr. Caitlin Martinez Cholesterol [Mass/Vol] 221 mg/dL Critically high <=200 [facility] Comment on above: Performed By: #### I HORACIO #### [facility] [address] [place] [address] Dr. Caitlin Martinez Cholesterol in HDL [Mass/Vol] 67 mg/dL Critically high 40-60 [facility] Comment on above: Performed By: #### I HORACIO #### [facility] [address] [place] [address] Dr. Caitlin Martinez Cholesterol in LDL [Mass/Vol] 142.4 mg/dL Normal [facility] Comment on above: Performed By: #### I HORACIO #### [facility] [address] [place] [address] Dr. Caitlin Martinez Cholesterol.total/Cho lesterol in HDL [Mass ratio] 3.3 {ratio} Normal [facility] Comment on above: Performed By: #### I HORACIO #### [facility] [address] [place] [address] Dr. Caitlin Martinez HDL NORMAL > or = 60 mg/dl - LO W CARDIOVASCULAR RISK <40 mg/dl - HIGH CARDIOVASCULAR RISK Normal [facility] Comment on above: Performed By: #### I HORACIO #### [facility] [address] [address] [address] Caitlin Martinez LDL CALC NORMAL SEE BELOW Normal [facility] Comment on above: Result Comment: <100 mg/dl OPTIMAL 100 - 129 mg/dl NEAR OR ABOVE OPTIMAL 130 - 159 mg/dl BORDERLINE HIGH 160 - 189 mg/dl HIGH >190 mg/dl VERY HIGH Performed By: #### I HORACIO #### [facility] [address] [address] [address] Caitlin Martinez Triglyceride [Mass/Vol] 58 mg/dL Normal <=150 [facility] Comment on above: Performed By: #### I HORACIO #### [facility] [address] [address] [address] Caitlin Martinez VLDL CALC 11.6 mg/dL Normal [facility] Comment on above: Performed By: #### I HORACIO #### [facility] [address] [place] [address] Dr. Caitlin Martinez PROF 14(COMP METB)on 022 Albumin [Mass/Vol] 3.8 g/dL Normal 3.4-5.0 [facility] Comment on above: Performed By: #### I HORACIO #### [facility] [address] [place] [address] Dr. Caitlin Martinez Albumin/Globulin [Mass ratio] 1.1 {ratio} Normal [facility] Comment on above: Performed By: #### I HORACIO #### [facility] [address] [place] [address] Dr. Caitlin Martinez ALP [Catalytic activity/Vol] 132 U/L Critically high 46-116 [facility] Comment on above: Performed By: #### I HORACIO #### [facility] [address] [address] [address] Caitlin Matrinez ALT [Catalytic activity/Vol] 55 U/L Normal 14-59 [facility] Comment on above: Performed By: #### I HORACIO #### [facility] [address] [place] [address] Dr. Caitlin Martinez Anion gap [Moles/Vol] 12.6 mmol/L Normal [facility] Comment on above: Performed By: #### I HORACIO #### [facility] [address] [address] [address] Caitlin Martinez AST [Catalytic activity/Vol] 27 U/L Normal 15-37 [facility] Comment on above: Performed By: #### I HORACIO #### [facility] [address] [address] [address] Caitlin Martinez Bilirubin [Mass/Vol] 0.6 mg/dL Normal 0.2-1.0 [facility] Comment on above: Performed By: #### I HORACIO #### [facility] [address] [address] [address] Caitlin Martinez Calcium [Mass/Vol] 9.1 mg/dL Normal 8.5-10.1 [facility] Comment on above: Performed By: #### I HORACIO #### [facility] [address] [place] [address] Dr. Caitlin Martinez Chloride [Moles/Vol] 106 mmol/L Normal 98-107 [facility] Comment on above: Performed By: #### I HORACIO #### [facility] [address] [address] [address] Caitlin Martinez CO2 [Moles/Vol] 26.5 mmol/L Normal 21.0-32.0 [facility] Comment on above: Performed By: #### I HORACIO #### [facility] [address] [place] [address] Dr. Caitlin Martinez Creatinine [Mass/Vol] 0.63 mg/dL Normal 0.55-1.02 [facility] Comment on above: Performed By: #### I HORACIO #### [facility] [address] [address] [address] Caitlin Martinez EGFR-AF PARAGUAYAN >60 Normal >=60 [facility] Comment on above: Performed By: #### I HORACIO #### [facility] [address] [address] [address] Caitlin Martinez EGFR-NON AF PARAGUAYAN >60 Normal >=60 [facility] [facility] Comment on above: Performed By: #### I HORACIO #### [facility] [address] [address] [address] Caitlin Martinez Globulin (S) [Mass/Vol] 3.6 g/dL Normal [facility] Comment on above: Performed By: #### I HORACIO #### [facility] [address] [address] [address] Caitlin Martinez Glucose [Mass/Vol] 98 mg/dL Normal 74-106 [facility] Comment on above: Performed By: #### I HORACIO #### [facility] [address] [address] [address] Caitlin Martinez Potassium [Moles/Vol] 4.1 mmol/L Normal 3.5-5.1 [facility] Comment on above: Performed By: #### I HORACIO #### [facility] [address] [place] [address] Dr. Caitlin Martinez Protein [Mass/Vol] 7.4 g/dL Normal 6.4-8.2 [facility] Comment on above: Performed By: #### I HORACIO #### [facility] [address] [place] [address] Dr. Caitlin Martinez Sodium [Moles/Vol] 141 mmol/L Normal 136-145 [facility] Comment on above: Performed By: #### I HORACIO #### [facility] [address] [place] [address] Dr. Caitlin Martinez Urea nitrogen [Mass/Vol] 9.0 mg/dL Normal 7.0-18.0 [facility] Comment on above: Performed By: #### I HORACIO #### [facility] [address] [place] [address] Dr. Caitlin Martinez Urea nitrogen/Creatinine [Mass ratio] 14.3 mg/mg Normal [facility] Comment on above: Performed By: #### I HORACIO #### [facility] [address] [place] [address] Dr. Caitlin Martinez TSHon 04-18-2022 TSH 1.349 uIU/mL Normal 0.358-3.740 [facility] Comment on above: Performed By: #### I HORACIO #### [facility] [address] [place] [address] Dr. Caitlin Martinez ANTIBODY ID PANELon 02-15-20 22 ANTIBODY ID PANEL Antibody ID Anti-D Blood Bank Notes most likely due to Rhogam given on 12/01/21 Normal [facility] Comment on above: Performed By: #### D IRCMB, ABID #### [facility] [address] [place] [address] Dr. Caitlin Martinez CTA CHEST WO W [...] by: GAGANDEEP WHEELER Date: 2022-02-10 22:55 Normal [facility] CBC AUTO DIFFon 02-10-2022 BASO # 0.1 103/ul Normal 0.0-0.1 [facility] Comment on above: Performed By: #### C BC #### [facility] [address] [place] [address] Dr. Caitlin Martinez Basophils/100 WBC (Bld) 0.4 % Normal 0.2-2.0 [facility] Comment on above: Performed By: #### C BC #### [facility] [address] [place] [address] Dr. Caitlin Martinez EO # 0.5 103/ul Normal 0.0-0.7 [facility] Comment on above: Performed By: #### C BC #### [facility] [address] [place] [address] Dr. Caitlin Martinez Eosinophils/100 WBC (Bld) 4.2 % Normal 0.9-7.0 [facility] Comment on above: Performed By: #### C BC #### [facility] [address] [place] [address] Dr. Caitlin Martinez Erythrocyte distribution width (RBC) [Ratio] 14.7 % Normal 11.0-15.0 [facility] Comment on above: Performed By: #### C BC #### [facility] [address] [place] [address] Dr. Caitlin Martinez Hematocrit (Bld) [Volume fraction] 31.1 % Critically low 36.0-48.0 [facility] Comment on above: Performed By: #### C BC #### [facility] [address] [place] [address] Dr. Caitlin Martinez Hemoglobin (Bld) [Mass/Vol] 9.6 g/dL Critically low 12.0-16.0 [facility] Comment on above: Performed By: #### C BC #### [facility] [address] [place] [address] Dr. Caitlin Martinez IG # 0.28 10e3/ul Critically high 0.00-0.03 [facility] Comment on above: Performed By: #### C BC #### [facility] [address] [place] [address] Dr. Caitlin Martinez IG % 2.3 % Critically high 0.0-0.5 [facility] Comment on above: Performed By: #### C BC #### [facility] [address] [place] [address] Dr. Caitlin Martinez LYMPH # 3.3 103/ul Normal 1.2-3.8 [facility] Comment on above: Performed By: #### C BC #### [facility] [address] [place] [address] Dr. Caitlin Martinez Lymphocytes/100 WBC (Bld) 26.9 % Normal 20.5-60.0 [facility] Comment on above: Performed By: #### C BC #### [facility] [address] [place] [address] Dr. Caitlin Martinez MANUAL DIFF REQ NO Normal [facility] Comment on above: Performed By: #### C BC #### [facility] [address] [place] [address] Dr. Caitlin Martinez MCH (RBC) [Entitic mass] 26.2 pg Critically low 26.7-34.0 [facility] Comment on above: Performed By: #### C BC #### [facility] [address] [place] [address] Dr. Caitlin Martinez MCHC (RBC) [Mass/Vol] 30.9 g/dL Normal 29.9-35.2 [facility] Comment on above: Performed By: #### C BC #### [facility] [address] [place] [address] Dr. Caitlin Martinez MCV (RBC) [Entitic vol] 84.7 fL Normal 81.0-99.0 [facility] Comment on above: Performed By: #### C BC #### [facility] [address] [place] [address] Dr. Caitlin Martinez MONO # 1.1 103/ul Critically high 0.3-0.8 [facility] Comment on above: Performed By: #### C BC #### [facility] [address] [place] [address] Dr. Caitlin Martinez Monocytes/100 WBC (Bld) 8.7 % Normal 1.7-12.0 [facility] Comment on above: Performed By: #### C BC #### [facility] [address] [place] [address] Dr. Caitlin Martinez NEUT # 7.0 103/ul Critically high 1.4-6.5 [facility] Comment on above: Performed By: #### C BC #### [facility] [address] [place] [address] Dr. Caitlin Martinez Neutrophils/100 WBC (Bld) 57.5 % Normal 43.0-75.0 [facility] Comment on above: Performed By: #### C BC #### [facility] [address] [place] [address] Dr. Caitlin Martinez Platelet mean volume (Bld) [Entitic vol] 9.1 fL Critically low 9.5-13.5 [facility] Comment on above: Performed By: #### C BC #### [facility] [address] [place] [address] Dr. Caitlin Martinez PLT 437 103/ul Normal 150-450 [facility] Comment on above: Performed By: #### C BC #### [facility] [address] [place] [address] Dr. Caitlin Martinez RBC 3.67 106/ul Critically low 4.20-5.40 [facility] Comment on above: Performed By: #### C BC #### [facility] [address] [place] [address] Dr. Caitlin Martinez WBC 12.3 103/ul Critically high 4.0-11.0 [facility] Comment on above: Performed By: #### C BC #### [facility] [address] [place] [address] Dr. Caitlin Martinez Covid-19 PCR ([facility])on 01-16 SARS-CoV-2 (COVID-19) RNA JONATAN+probe Ql (Unsp spec) Not detected Normal NOT DETECTED [facility] Comment on above: Result Comment: When diagnostic [...] for this test is supported by the Mobile Battery Technician of Health and Human Service's declaration that [...] used). Performed By: #### C VDTBH #### [facility] [address] [place] [address] Dr. Caitlin Martinez PROF 14(COMP METB)on 022 Albumin [Mass/Vol] 2.1 g/dL Critically low 3.4-5.0 [facility] Comment on above: Performed By: #### U RCX #### [facility] [address] [place] [address] Dr. Caitlin Martinez Albumin/Globulin [Mass ratio] 0.5 {ratio} Normal [facility] Comment on above: Performed By: #### U RCX #### [facility] [address] [place] [address] Dr. Caitlin Martinez ALP [Catalytic activity/Vol] 202 U/L Critically high 46-116 [facility] Comment on above: Performed By: #### U RCX #### [facility] [address] [place] [address] Dr. Caitlin Martinez ALT [Catalytic activity/Vol] 20 U/L Normal 14-59 [facility] Comment on above: Performed By: #### U RCX #### [facility] [address] [place] [address] Dr. Caitlin Martinez Anion gap [Moles/Vol] 11.6 mmol/L Normal [facility] Comment on above: Performed By: #### U RCX #### [facility] [address] [place] [address] Dr. Caitlin Martinez AST [Catalytic activity/Vol] 17 U/L Normal 15-37 [facility] Comment on above: Performed By: #### U RCX #### [facility] [address] [place] [address] Dr. Caitlin Martinez Bilirubin [Mass/Vol] 0.3 mg/dL Normal 0.2-1.0 [facility] Comment on above: Performed By: #### U RCX #### [facility] [address] [place] [address] Dr. Caitlin Martinez Calcium [Mass/Vol] 9.2 mg/dL Normal 8.5-10.1 [facility] Comment on above: Performed By: #### U RCX #### [facility] [address] [address] [address] Caitlin Martinez Chloride [Moles/Vol] 104 mmol/L Normal 98-107 [facility] Comment on above: Performed By: #### U RCX #### [facility] [address] [address] [address] Caitlin Martinez CO2 [Moles/Vol] 26.9 mmol/L Normal 21.0-32.0 [facility] Comment on above: Performed By: #### U RCX #### [facility] [address] [address] [address] Caitlin Martinez Creatinine [Mass/Vol] 0.56 mg/dL Normal 0.55-1.02 [facility] Comment on above: Performed By: #### U RCX #### [facility] [address] [place] [address] Dr. Caitlin Martinez EGFR-AF PARAGUAYAN >60 Normal >=60 [facility] Comment on above: Performed By: #### U RCX #### [facility] [address] [address] [address] Caitlin Martinez EGFR-NON AF PARAGUAYAN >60 Normal >=60 [facility] Comment on above: Performed By: #### U RCX #### [facility] [address] [place] [address] Dr. Caitlin Martinez Globulin (S) [Mass/Vol] 4.4 g/dL Normal [facility] Comment on above: Performed By: #### U RCX #### [facility] [address] [address] [address] Caitlin Martinez Glucose [Mass/Vol] 108 mg/dL Critically high 74-106 [facility] Comment on above: Performed By: #### U RCX #### [facility] [address] [address] [address] Caitlin Martinez Potassium [Moles/Vol] 3.5 mmol/L Normal 3.5-5.1 [facility] Comment on above: Performed By: #### U RCX #### [facility] [address] [place] [address] Dr. Caitlin Martinez Protein [Mass/Vol] 6.5 g/dL Normal 6.4-8.2 [facility] Comment on above: Performed By: #### U RCX #### [facility] [address] [address] [address] Caitlin Martinez Sodium [Moles/Vol] 139 mmol/L Normal 136-145 [facility] Comment on above: Performed By: #### U RCX #### [facility] [address] [address] [address] Caitlin Martinez Urea nitrogen [Mass/Vol] 7.0 mg/dL Normal 7.0-18.0 [facility] Comment on above: Performed By: #### U RCX #### [facility] [address] [place] [address] Dr. Caitlin Martinez Urea nitrogen/Creatinine [Mass ratio] 12.5 mg/mg Normal [facility] Comment on above: Performed By: #### U RCX #### [facility] [address] [place] [address] Dr. Caitlin Martinez TROPONIN, HIGH SENSITIVITYon 02-10-2022 HSTROP <4.0 Normal 4.0-51.3 [facility] Comment on above: Result Comment: CUT- OFF POINTS HAVE BEEN ESTABLISHED BASED ON THE FOURTH UNIVERSAL DEFINITIONS OF MYOCARDIAL INFARCTION. THE UPPER REFERENCE LIMIT (URL) OF TROPONIN, DEFINED THE 99TH PERCENTILE OF cTnI DISTRIBUTION IN A REFERENCE POPULATION, HAS BEEN CONFIRMED THE DECISION THRESHOLD FOR [place] DIAGNOSIS. Performed By: #### U RCX #### [facility] [address] [place] [address] Dr. Caitlin Martinez CBC AUTO DIFFon 02-09-2022 BASO # 0.1 103/ul Normal 0.0-0.1 [facility] Comment on above: Performed By: #### U RCX #### [facility] [address] [place] [address] Dr. Caitlin Martinez Basophils/100 WBC (Bld) 0.6 % Normal 0.2-2.0 [facility] Comment on above: Performed By: #### U RCX #### [facility] [address] [address] [address] Caitlin Martinez EO # 0.3 103/ul Normal 0.0-0.7 [facility] Comment on above: Performed By: #### U RCX #### [facility] [address] [place] [address] Dr. Caitlin Martinez Eosinophils/100 WBC (Bld) 2.3 % Normal 0.9-7.0 [facility] Comment on above: Performed By: #### U RCX #### [facility] [address] [place] [address] Dr. Caitlin Martinez Erythrocyte distribution width (RBC) [Ratio] 14.6 % Normal 11.0-15.0 [facility] Comment on above: Performed By: #### U RCX #### [facility] [address] [place] [address] Dr. Caitlin Martinez Hematocrit (Bld) [Volume fraction] 28.8 % Critically low 36.0-48.0 [facility] Comment on above: Performed By: #### U RCX #### [facility] [address] [place] [address] Dr. Caitlin Martinez Hemoglobin (Bld) [Mass/Vol] 9.0 g/dL Critically low 12.0-16.0 [facility] Comment on above: Performed By: #### U RCX #### [facility] [address] [place] [address] Dr. Caitlin Martinez IG # 0.20 10e3/ul Critically high 0.00-0.03 [facility] Comment on above: Performed By: #### U RCX #### [facility] [address] [place] [address] Dr. Caitlin Martinez IG % 1.5 % Critically high 0.0-0.5 [facility] Comment on above: Performed By: #### U RCX #### [facility] [address] [place] [address] Dr. Caitlin Martinez LYMPH # 3.0 103/ul Normal 1.2-3.8 [facility] Comment on above: Performed By: #### U RCX #### [facility] [address] [address] [address] Caitlin Martinez Lymphocytes/100 WBC (Bld) 22.2 % Normal 20.5-60.0 [facility] Comment on above: Performed By: #### U RCX #### [facility] [address] [address] [address] Caitlin Martinez MANUAL DIFF REQ NO Normal [facility] Comment on above: Performed By: #### U RCX #### [facility] [address] [address] [address] Caitlin Martinez MCH (RBC) [Entitic mass] 26.2 pg Critically low 26.7-34.0 [facility] Comment on above: Performed By: #### U RCX #### [facility] [address] [place] [address] Dr. Caitlin Martinez MCHC (RBC) [Mass/Vol] 31.3 g/dL Normal 29.9-35.2 [facility] Comment on above: Performed By: #### U RCX #### [facility] [address] [place] [address] Dr. Caitlin Martinez MCV (RBC) [Entitic vol] 83.7 fL Normal 81.0-99.0 [facility] Comment on above: Performed By: #### U RCX #### [facility] [address] [place] [address] Dr. Caitlin Martinez MONO # 1.3 103/ul Critically high 0.3-0.8 [facility] Comment on above: Performed By: #### U RCX #### [facility] [address] [place] [address] Dr. Caitlin Martinez Monocytes/100 WBC (Bld) 9.8 % Normal 1.7-12.0 [facility] Comment on above: Performed By: #### U RCX #### [facility] [address] [place] [address] Dr. Caitlin Martinez NEUT # 8.5 103/ul Critically high 1.4-6.5 [facility] Comment on above: Performed By: #### U RCX #### [facility] [address] [address] [address] Caitlin Martinez Neutrophils/100 WBC (Bld) 63.6 % Normal 43.0-75.0 [facility] Comment on above: Performed By: #### U RCX #### [facility] [address] [address] [address] Caitlin Martinez Platelet mean volume (Bld) [Entitic vol] 9.1 fL Critically low 9.5-13.5 [facility] Comment on above: Performed By: #### U RCX #### [facility] [address] [address] [address] Caitlin Martinez PLT 355 103/ul Normal 150-450 [facility] Comment on above: Performed By: #### U RCX #### [facility] [address] [place] [address] Dr. Caitlin Martinez RBC 3.44 106/ul Critically low 4.20-5.40 [facility] Comment on above: Performed By: #### U RCX #### [facility] [address] [place] [address] Dr. Caitlin Martinez WBC 13.3 103/ul Critically high 4.0-11.0 [facility] Comment on above: Performed By: #### U RCX #### [facility] [address] [place] [address] Dr. Caitlin Martinez SCREENon 02-09-2022 SCREEN Negative Normal [facility] Comment on above: Performed By: #### F ETSCRN #### [facility] [address] [place] [address] Dr. Caitlin Martinez CBC AUTO DIFFon 02-08-2022 BASO # 0.1 103/ul Normal 0.0-0.1 [facility] Comment on above: Performed By: #### U RCX #### [facility] [address] [place] [address] Dr. Caitlin Martinez Basophils/100 WBC (Bld) 0.4 % Normal 0.2-2.0 [facility] Comment on above: Performed By: #### U RCX #### [facility] [address] [address] [address] Caitlin Martinez EO # 0.3 103/ul Normal 0.0-0.7 [facility] Comment on above: Performed By: #### U RCX #### [facility] [address] [address] [address] Caitlin Martinez Eosinophils/100 WBC (Bld) 2.6 % Normal 0.9-7.0 [facility] Comment on above: Performed By: #### U RCX #### [facility] [address] [place] [address] Dr. Caitlin Martinez Erythrocyte distribution width (RBC) [Ratio] 14.7 % Normal 11.0-15.0 [facility] Comment on above: Performed By: #### U RCX #### [facility] [address] [place] [address] Dr. Caitlin Martinez Hematocrit (Bld) [Volume fraction] 30.6 % Critically low 36.0-48.0 [facility] Comment on above: Performed By: #### U RCX #### [facility] [address] [place] [address] Dr. Caitlin Martinez Hemoglobin (Bld) [Mass/Vol] 9.7 g/dL Critically low 12.0-16.0 [facility] Comment on above: Performed By: #### U RCX #### [facility] [address] [place] [address] Dr. Caitlin Martinez IG # 0.15 10e3/ul Critically high 0.00-0.03 [facility] Comment on above: Performed By: #### U RCX #### [facility] [address] [place] [address] Dr. Caitlin Martinez IG % 1.3 % Critically high 0.0-0.5 [facility] Comment on above: Performed By: #### U RCX #### [facility] [address] [place] [address] Dr. Caitlin Martinez LYMPH # 2.8 103/ul Normal 1.2-3.8 [facility] Comment on above: Performed By: #### U RCX #### [facility] [address] [place] [address] Dr. Caitlin Martinez Lymphocytes/100 WBC (Bld) 24.8 % Normal 20.5-60.0 [facility] Comment on above: Performed By: #### U RCX #### [facility] [address] [place] [address] Dr. Caitlin Martinez MANUAL DIFF REQ NO Normal [facility] Comment on above: Performed By: #### U RCX #### [facility] [address] [place] [address] Dr. Caitlin Martinez MCH (RBC) [Entitic mass] 26.6 pg Critically low 26.7-34.0 [facility] Comment on above: Performed By: #### U RCX #### [facility] [address] [place] [address] Dr. Caitlin Martinez MCHC (RBC) [Mass/Vol] 31.7 g/dL Normal 29.9-35.2 [facility] Comment on above: Performed By: #### U RCX #### [facility] [address] [place] [address] Dr. Caitlin Martinez MCV (RBC) [Entitic vol] 83.8 fL Normal 81.0-99.0 [facility] Comment on above: Performed By: #### U RCX #### [facility] [address] [place] [address] Dr. Caitlin Martinez MONO # 1.0 103/ul Critically high 0.3-0.8 [facility] Comment on above: Performed By: #### U RCX #### [facility] [address] [place] [address] Dr. Caitlin Martinez Monocytes/100 WBC (Bld) 8.7 % Normal 1.7-12.0 [facility] Comment on above: Performed By: #### U RCX #### [facility] [address] [place] [address] Dr. Caitlin Martinez NEUT # 7.0 103/ul Critically high 1.4-6.5 [facility] Comment on above: Performed By: #### U RCX #### [facility] [address] [address] [address] Caitlin Martinez Neutrophils/100 WBC (Bld) 62.2 % Normal 43.0-75.0 [facility] Comment on above: Performed By: #### U RCX #### [facility] [address] [address] [address] Caitlin Martinez Platelet mean volume (Bld) [Entitic vol] 9.0 fL Critically low 9.5-13.5 [facility] Comment on above: Performed By: #### U RCX #### [facility] [address] [address] [address] Caitlin Martinez PLT 373 103/ul Normal 150-450 [facility] Comment on above: Performed By: #### U RCX #### [facility] Laboratory [address] [place] [address] Dr. Caitlin Martinez RBC 3.65 106/ul Critically low 4.20-5.40 [facility] Comment on above: Performed By: #### U RCX #### [facility] Laboratory [address] [address] [address] Caitlin Martinez WBC 11.3 103/ul Critically high 4.0-11.0 [facility] Comment on above: Performed By: #### U RCX #### [facility] Laboratory [address] [place] [address] Dr. Caitlin Martinez [facility]16 SARS-CoV-2 (COVID-19) RNA JONATAN+probe Ql (Unsp spec) Not detected Normal NOT DETECTED [facility] Comment on above: Result Comment: When diagnostic [...] for this test is supported by the Mobile Battery Technician of Health and Human Service's declaration that [...] used). Performed By: #### C BC #### [facility] Laboratory [address] [place] [address] Dr. Caitlin Martinez DIRECT COOMBSon 02-08-2022 DIRECT EDWINA Negative Normal [facility] Comment on above: Performed By: #### D IRCMB, ABID #### [facility] Laboratory [address] [place] [address] Dr. Caitlin Martinez DRUG SCREEN RAPID (URINE)on 02-08-2022 AMP Negative Normal NEGATIVE [facility] Comment on above: Performed By: #### C BC #### [facility] Laboratory [address] [place] [address] Dr. Caitlin Martinez BAR Negative Normal NEGATIVE [facility] Comment on above: Performed By: #### C BC #### [facility] [address] [place] [address] Dr. Caitlin Martinez BUP Negative Normal NEGATIVE [facility] Comment on above: Performed By: #### C BC #### [facility] Laboratory [address] [place] [address] Dr. Caitlin Martinez BZO Negative Normal NEGATIVE [facility] Comment on above: Performed By: #### C BC #### [facility] [address] [place] [address] Dr. Caitlin Martinez JEANNA Negative Normal NEGATIVE [facility] Comment on above: Performed By: #### C BC #### [facility] [address] [place] [address] Dr. Caitlin Martinez CUT-OFFS SEE BELOW Normal [facility] Comment [...] ng/mL Performed By: #### C BC #### [facility] Laboratory [address] [place] [address] Dr. Caitlin Martinez DRUG CUT HEADER DRUG CLASS TEST SYSTEM CUT-OFF CONCENTRATIONS ARE FOLLOWS: Normal [facility] Comment on above: Performed By: #### C BC #### [facility] Laboratory [address] [place] [address] Dr. Caitlin Martinez mAMP Negative Normal NEGATIVE [facility] Comment on above: Performed By: #### C BC #### [facility] [address] [place] [address] Dr. Caitlin Martinez MTD Negative Normal NEGATIVE [facility] Comment on above: Performed By: #### C BC #### [facility] [address] [place] [address] Dr. Caitlin Martinez OPI Negative Normal NEGATIVE [facility] Comment on above: Performed By: #### C BC #### [facility] [address] [place] [address] Dr. Caitlin Martinez OXY Negative Normal NEGATIVE [facility] Comment on above: Performed By: #### C BC #### [facility] [address] [place] [address] Dr. Caitlin Martinez PCP Negative Normal NEGATIVE [facility] Comment on above: Performed By: #### C BC #### [facility] [address] [place] [address] Dr. Caitlin Martinez PPX Negative Normal NEGATIVE [facility] Comment on above: Performed By: #### C BC #### [facility] [address] [place] [address] Dr. Caitlin Martinez TCA Negative Normal NEGATIVE [facility] Comment on above: Performed By: #### C BC #### [facility] [address] [place] [address] Dr. Caitlin Martinez THC Negative Normal NEGATIVE [facility] Comment on above: Performed By: #### C BC #### [facility] [address] [place] [address] Dr. Caitlin Martinez TYPE AND SCREENon 02-08-2022 TYPE AND SCREEN Negative Normal [facility] Comment on above: Performed By: #### I HORACIO #### [facility] Laboratory [address] [place] [address] Dr. Caitlin Martinez US PREG BIOPHY W [...] DAVID BLACKMON Date: 2022-02-05 16:28 Normal [facility] AMNISUREon 01-25-2022 AMNISURE Negative Normal NEGATIVE [facility] Comment on above: Performed By: #### A MNI #### [facility] Laboratory [address] [place] [address] Dr. Caitlin Martinez CULTURE URINEon 01-25-2022 CULTURE URINE Culture Observations : No growth Normal [facility] Comment on above: Performed By: #### U RCX #### [facility] [address] [place] [address] Dr. Caitlin Martinez UA (CLEAN/CATCH) GERMAN TUTOR/MICRO I F IND.on 01-25-2022 Bilirubin Ql (U) Negative Normal NEGATIVE [facility] Comment on above: Performed By: #### C VDTBH #### [facility] [address] [place] [address] Dr. Caitlin Martinez Clarity (U) SL CLOUDY Abnormal CLEAR [facility] Comment on above: Performed By: #### C VDTBH #### [facility] [address] [address] [address] Caitlin Martinez Color (U) LT. YELLOW Normal YELLOW [facility] Comment on above: Performed By: #### C VDTBH #### [facility] [address] [address] [address] Caitlin Martinez Glucose Ql (U) Negative Normal NEGATIVE [facility] Comment on above: Performed By: #### C VDTBH #### [facility] [address] [address] [address] Caitlin Martinez Hemoglobin Ql (U) TRACE-INTACT Abnormal NEGATIVE [facility] Comment on above: Performed By: #### C VDTBH #### [facility] [address] [place] [address] Dr. Caitlin Martinez Ketones Ql (U) Negative Normal NEGATIVE [facility] Comment on above: Performed By: #### C VDTBH #### [facility] [address] [place] [address] Dr. Caitlin Martinez LEUKOCYTES TRACE Abnormal NEGATIVE [facility] Comment on above: Performed By: #### C VDTBH #### [facility] [address] [place] [address] Dr. Caitlin Martinez Nitrite Ql (U) Negative Normal NEGATIVE [facility] Comment on above: Performed By: #### C VDTBH #### [facility] [address] [place] [address] Dr. Caitlin Martinez pH (U) 6.5 [pH] Normal 5-9 [facility] Comment on above: Performed By: #### C VDTBH #### [facility] [address] [place] [address] Dr. Caitlin Martinez SPEC GRAVITY 1.020 Normal 1.005-<=1.025 [facility] Comment on above: Performed By: #### C VDTBH #### [facility] [address] [place] [address] Dr. Caitlin Martinez UA PROTEIN Negative Normal NEGATIVE/ TRACE [facility] Comment on above: Performed By: #### C VDTBH #### [facility] [address] [place] [address] Dr. Caitlin Martinez UR MICRO IND INDICATED Normal [facility] Comment on above: Performed By: #### C VDTBH #### [facility] [address] [place] [address] Dr. Caitlin Martinez Urobilinogen Qn (U) 0.2 {Barbara'U}/dL Normal 0.2 - 1. 0 [facility] Comment on above: Performed By: #### C VDTBH #### [facility] [address] [place] [address] Dr. Caitlin Martinez URINE MICROSCOPIC ONLYon BACTERIA MODERATE Abnormal NONE SEEN [facility] Comment on above: Performed By: #### C VDTBH #### [facility] [address] [place] [address] Dr. Caitlin Martinez Bacteria identified Cx Nom (U) INDICATED Normal [facility] Comment on above: Performed By: #### C VDTBH #### [facility] [address] [place] [address] Dr. Caitlin Martinez CAST NONE SEEN Normal NONE SEEN [facility] Comment on above: Performed By: #### C VDTBH #### [facility] [address] [place] [address] Dr. Caitlin Martinez Crystals LM Nom (Urine sed) NONE SEEN Normal NONE SEEN [facility] Comment on above: Performed By: #### C VDTBH #### [facility] [address] [place] [address] Dr. Caitlin Martinez Epithelial cells LM Ql (Urine sed) FEW Abnormal NONE SEEN /RARE [facility] Comment on above: Performed By: #### C VDTBH #### [facility] [address] [place] [address] Dr. Caitlin Martinez MUCOUS TRACE Abnormal NONE SEEN [facility] Comment on above: Performed By: #### C VDTBH #### [facility] [address] [place] [address] Dr. Caitlin Martinez RBC 2-5 Abnormal 0-2 [facility] Comment on above: Performed By: #### C VDTBH #### [facility] [address] [place] [address] Dr. Caitlin Martinez WBC 0-2 Abnormal NONE SEEN [facility] Comment on above: Performed By: #### C VDTBH #### [facility] [address] [place] [address] Dr. Caitlin Martinez AMYLASEon 01-16-2022 Amylase [Catalytic activity/Vol] 49 U/L Normal 25-115 [facility] Comment on above: Performed By: #### C VDTBH #### [facility] [address] [place] [address] Dr. Caitlin Martinez BUNon 01-16-2022 Urea nitrogen [Mass/Vol] 3.0 mg/dL Critically low 7.0-18.0 [facility] Comment on above: Performed By: #### C BC #### [facility] [address] [place] [address] Dr. Caitlin Martinez CBC AUTO DIFFon 01-16-2022 BASO # 0.1 103/ul Normal 0.0-0.1 [facility] Comment on above: Performed By: #### U RCX #### [facility] [address] [place] [address] Dr. Caitlin Martinez Basophils/100 WBC (Bld) 0.6 % Normal 0.2-2.0 [facility] Comment on above: Performed By: #### U RCX #### [facility] [address] [place] [address] Dr. Caitlin Martinez EO # 0.3 103/ul Normal 0.0-0.7 [facility] Comment on above: Performed By: #### U RCX #### [facility] [address] [place] [address] Dr. Caitlin Martinez Eosinophils/100 WBC (Bld) 2.6 % Normal 0.9-7.0 [facility] Comment on above: Performed By: #### U RCX #### [facility] [address] [place] [address] Dr. Caitlin Martinez Erythrocyte distribution width (RBC) [Ratio] 14.4 % Normal 11.0-15.0 [facility] Comment on above: Performed By: #### U RCX #### [facility] [address] [address] [address] Caitlin Martinez Hematocrit (Bld) [Volume fraction] 28.4 % Critically low 36.0-48.0 [facility] Comment on above: Performed By: #### U RCX #### [facility] [address] [place] [address] Dr. Caitlin Martinez Hemoglobin (Bld) [Mass/Vol] 9.0 g/dL Critically low 12.0-16.0 [facility] Comment on above: Performed By: #### U RCX #### [facility] [address] [place] [address] Dr. Caitlin Martinez IG # 0.11 10e3/ul Critically high 0.00-0.03 [facility] Comment on above: Performed By: #### U RCX #### [facility] [address] [place] [address] Dr. Caitlin Martinez IG % 1.1 % Critically high 0.0-0.5 [facility] Comment on above: Performed By: #### U RCX #### [facility] [address] [place] [address] Dr. Caitlin Martinez LYMPH # 2.2 103/ul Normal 1.2-3.8 [facility] Comment on above: Performed By: #### U RCX #### [facility] [address] [place] [address] Dr. Caitlin Martinez Lymphocytes/100 WBC (Bld) 21.0 % Normal 20.5-60.0 [facility] Comment on above: Performed By: #### U RCX #### [facility] [address] [place] [address] Dr. Caitlin Martinez MANUAL DIFF REQ NO Normal [facility] Comment on above: Performed By: #### U RCX #### [facility] [address] [place] [address] Dr. Caitlin Martinez MCH (RBC) [Entitic mass] 28.2 pg Normal 26.7-34.0 [facility] Comment on above: Performed By: #### U RCX #### [facility] [address] [address] [address] Caitlin Martinez MCHC (RBC) [Mass/Vol] 31.7 g/dL Normal 29.9-35.2 [facility] Comment on above: Performed By: #### U RCX #### [facility] [address] [place] [address] Dr. Caitlin Martinez MCV (RBC) [Entitic vol] 89.0 fL Normal 81.0-99.0 [facility] Comment on above: Performed By: #### U RCX #### [facility] [address] [place] [address] Dr. Caitlin Martinez MONO # 0.9 103/ul Critically high 0.3-0.8 [facility] Comment on above: Performed By: #### U RCX #### [facility] [address] [place] [address] Dr. Caitlin Martinez Monocytes/100 WBC (Bld) 8.9 % Normal 1.7-12.0 [facility] Comment on above: Performed By: #### U RCX #### [facility] [address] [place] [address] Dr. Caitlin Martinez NEUT # 6.8 103/ul Critically high 1.4-6.5 [facility] Comment on above: Performed By: #### U RCX #### [facility] [address] [place] [address] Dr. Caitlin Martinez Neutrophils/100 WBC (Bld) 65.8 % Normal 43.0-75.0 [facility] Comment on above: Performed By: #### U RCX #### [facility] [address] [place] [address] Dr. Caitlin Martinez Platelet mean volume (Bld) [Entitic vol] 8.6 fL Critically low 9.5-13.5 [facility] Comment on above: Performed By: #### U RCX #### [facility] [address] [place] [address] Dr. Caitlin Martinez PLT 322 103/ul Normal 150-450 [facility] Comment on above: Performed By: #### U RCX #### [facility] [address] [address] [address] Caitlin Martinez RBC 3.19 106/ul Critically low 4.20-5.40 [facility] Comment on above: Performed By: #### U RCX #### [facility] [address] [address] [address] Caitlin Martinez WBC 10.3 103/ul Normal 4.0-11.0 [facility] Comment on above: Performed By: #### U RCX #### [facility] [address] [address] [address] Caitlin Martinez CREATININEon 01-16-2022 Creatinine [Mass/Vol] 0.55 mg/dL Normal 0.55-1.02 [facility] Comment on above: Performed By: #### C VDTBH #### [facility] [address] [place] [address] Dr. Caitlin Martinez EGFR-AF PARAGUAYAN >60 Normal >=60 [facility] Comment on above: Performed By: #### C VDTBH #### [facility] [address] [place] [address] Dr. Caitlin Martinez EGFR-NON AF PARAGUAYAN >60 Normal >=60 [facility] Comment on above: Performed By: #### C VDTBH #### [facility] [address] [address] [address] Caitlin Martinez ELECTROLYTESon 01-16-2022 Anion gap [Moles/Vol] 13.6 mmol/L Normal [facility] Comment on above: Performed By: #### C VDTBH #### [facility] [address] [address] [address] Caitlin Martinez Chloride [Moles/Vol] 106 mmol/L Normal 98-107 [facility] Comment on above: Performed By: #### C VDTBH #### [facility] [address] [place] [address] Dr. Caitlin Martinez CO2 [Moles/Vol] 22.9 mmol/L Normal 21.0-32.0 [facility] Comment on above: Performed By: #### C VDTBH #### [facility] [address] [place] [address] Dr. Caitlin Martinez Potassium [Moles/Vol] 3.5 mmol/L Normal 3.5-5.1 [facility] Comment on above: Performed By: #### C VDTBH #### [facility] [address] [place] [address] Dr. Caitlin Martinez Sodium [Moles/Vol] 139 mmol/L Normal 136-145 [facility] Comment on above: Performed By: #### C VDTBH #### [facility] [address] [place] [address] Dr. Caitlin Martinez LIPASEon 01-16-2022 Lipase [Catalytic activity/Vol] 66.0 U/L Critically low 73.0-393.0 [facility] Comment on above: Performed By: #### C BC #### [facility] [address] [place] [address] Dr. Caitlin Martinez SGOTon 01-16-2022 AST [Catalytic activity/Vol] 12 U/L Critically low 15-37 [facility] Comment on above: Performed By: #### C VDTBH #### [facility] [address] [place] [address] Dr. Caitlin Martinez SGPTon 01-16-2022 ALT [Catalytic activity/Vol] 9 U/L Critically low 14-59 [facility] Comment on above: Performed By: #### C VDTBH #### [facility] [address] [place] [address] Dr. Caitlin Martinez CBC AUTO DIFFon 01-15-2022 BASO # 0.1 103/ul Normal 0.0-0.1 [facility] Comment on above: Performed By: #### C VDTBH #### [facility] [address] [place] [address] Dr. Caitlin Martinez Basophils/100 WBC (Bld) 0.4 % Normal 0.2-2.0 [facility] Comment on above: Performed By: #### C VDTBH #### [facility] [address] [address] [address] Caitlin Martinez EO # 0.2 103/ul Normal 0.0-0.7 [facility] Comment on above: Performed By: #### C VDTBH #### [facility] [address] [address] [address] Caitlin Martinez Eosinophils/100 WBC (Bld) 1.4 % Normal 0.9-7.0 [facility] Comment on above: Performed By: #### C VDTBH #### [facility] [address] [place] [address] Dr. Caitlin Martinez Erythrocyte distribution width (RBC) [Ratio] 14.1 % Normal 11.0-15.0 [facility] Comment on above: Performed By: #### C VDTBH #### [facility] [address] [place] [address] Dr. Caitlin Martinez Hematocrit (Bld) [Volume fraction] 28.4 % Critically low 36.0-48.0 [facility] Comment on above: Performed By: #### C VDTBH #### [facility] [address] [place] [address] Dr. Caitlin Martinez Hemoglobin (Bld) [Mass/Vol] 9.0 g/dL Critically low 12.0-16.0 [facility] Comment on above: Performed By: #### C VDTBH #### [facility] [address] [place] [address] Dr. Caitlin Martinez IG # 0.18 10e3/ul Critically high 0.00-0.03 [facility] Comment on above: Performed By: #### C VDTBH #### [facility] [address] [place] [address] Dr. Caitlin Martinez IG % 1.3 % Critically high 0.0-0.5 [facility] Comment on above: Performed By: #### C VDTBH #### [facility] [address] [place] [address] Dr. Caitlin Martinez LYMPH # 2.4 103/ul Normal 1.2-3.8 [facility] Comment on above: Performed By: #### C VDTBH #### [facility] [address] [address] [address] Caitlin Martinez Lymphocytes/100 WBC (Bld) 16.8 % Critically low 20.5-60.0 [facility] Comment on above: Performed By: #### C VDTBH #### [facility] [address] [place] [address] Dr. Caitlin Martinez MANUAL DIFF REQ NO Normal [facility] Comment on above: Performed By: #### C VDTBH #### [facility] [address] [place] [address] Dr. Caitlin Martinez MCH (RBC) [Entitic mass] 27.9 pg Normal 26.7-34.0 [facility] Comment on above: Performed By: #### C VDTBH #### [facility] [address] [place] [address] Dr. Caitiln Martinez MCHC (RBC) [Mass/Vol] 31.7 g/dL Normal 29.9-35.2 [facility] Comment on above: Performed By: #### C VDTBH #### [facility] [address] [place] [address] Dr. Caitlin Martinez MCV (RBC) [Entitic vol] 87.9 fL Normal 81.0-99.0 [facility] Comment on above: Performed By: #### C VDTBH #### [facility] [address] [place] [address] Dr. Caitlin Martinez MONO # 0.9 103/ul Critically high 0.3-0.8 [facility] Comment on above: Performed By: #### C VDTBH #### [facility] [address] [place] [address] Dr. Caitlin Martinez Monocytes/100 WBC (Bld) 6.7 % Normal 1.7-12.0 [facility] Comment on above: Performed By: #### C VDTBH #### [facility] [address] [place] [address] Dr. Caitlin Martinez NEUT # 10.3 103/ul Critically high 1.4-6.5 [facility] Comment on above: Performed By: #### C VDTBH #### [facility] [address] [address] [address] Caitlin Martinez Neutrophils/100 WBC (Bld) 73.4 % Normal 43.0-75.0 [facility] Comment on above: Performed By: #### C VDTBH #### [facility] [address] [address] [address] Caitlin Martinez Platelet mean volume (Bld) [Entitic vol] 9.0 fL Critically low 9.5-13.5 [facility] Comment on above: Performed By: #### C VDTBH #### [facility] [address] [place] [address] Dr. Caitlin Martinez PLT 318 103/ul Normal 150-450 [facility] Comment on above: Performed By: #### C VDTBH #### [facility] [address] [place] [address] Dr. Caitlin Martinez RBC 3.23 106/ul Critically low 4.20-5.40 [facility] Comment on above: Performed By: #### C VDTBH #### [facility] [address] [place] [address] Dr. Caitlin Martinez WBC 14.0 103/ul Critically high 4.0-11.0 [facility] Comment on above: Performed By: #### C VDTBH #### [facility] [address] [place] [address] ABD/PELVIS WO CONon [...] DAVID BLACKMON Date: 2022-01-15 16:31 Normal [facility] CULTURE URINEon 01-15-2022 CULTURE URINE Culture Observations : LIGHT GROWTH OF MIXED GENITAL COSME. NO POTENTIAL PATHOGENS SEEN. Normal [facility] Comment on above: Performed By: #### U RCX #### [facility] [address] [place] [address] Dr. Caitlin Martinez UA (CLEAN/CATCH) GERMAN TUTOR/MICRO I F IND.on 01-15-2022 Bilirubin Ql (U) Negative Normal NEGATIVE [facility] Comment on above: Performed By: #### C BC #### [facility] [address] [place] [address] Dr. Caitlin Martinez Clarity (U) CLEAR Normal CLEAR [facility] Comment on above: Performed By: #### C BC #### [facility] [address] [place] [address] Dr. Caitlin Martinez Color (U) LT. YELLOW Normal YELLOW [facility] Comment on above: Performed By: #### C BC #### [facility] [address] [place] [address] Dr. Caitlin Martinez Glucose Ql (U) Negative Normal NEGATIVE [facility] Comment on above: Performed By: #### C BC #### [facility] [address] [place] [address] Dr. Caitlin Martinez Hemoglobin Ql (U) Negative Normal NEGATIVE [facility] Comment on above: Performed By: #### C BC #### [facility] [address] [place] [address] Dr. Caitlin Martinez Ketones Ql (U) Negative Normal NEGATIVE [facility] Comment on above: Performed By: #### C BC #### [facility] [address] [place] [address] Dr. Caitlin Martinez LEUKOCYTES TRACE Abnormal NEGATIVE [facility] Comment on above: Performed By: #### C BC #### [facility] [address] [place] [address] Dr. Caitlin Martinez Nitrite Ql (U) Negative Normal NEGATIVE [facility] Comment on above: Performed By: #### C BC #### [facility] [address] [place] [address] Dr. Caitlin Martinez pH (U) 7.0 [pH] Normal 5-9 [facility] Comment on above: Performed By: #### C BC #### [facility] [address] [place] [address] Dr. Caitlin Martinez SPEC GRAVITY 1.010 Normal 1.005-<=1.025 [facility] Comment on above: Performed By: #### C BC #### [facility] [address] [place] [address] Dr. Caitlin Martinez UA PROTEIN Negative Normal NEGATIVE/ TRACE [facility] Comment on above: Performed By: #### C BC #### [facility] [address] [place] [address] Dr. Caitlin Martinez UR MICRO IND INDICATED Normal [facility] Comment on above: Performed By: #### C BC #### [facility] [address] [place] [address] Dr. Caitlin Martinez Urobilinogen Qn (U) 0.2 {Barbara'U}/dL Normal 0.2 - 1. 0 [facility] Comment on above: Performed By: #### C BC #### [facility] [address] [place] [address] Dr. Caitlin Martinez URINE MICROSCOPIC ONLYon BACTERIA MODERATE Abnormal NONE SEEN [facility] Comment on above: Performed By: #### C BC #### [facility] [address] [place] [address] Dr. Caitlin Martinez Bacteria identified Cx Nom (U) INDICATED Normal [facility] Comment on above: Performed By: #### C BC #### [facility] [address] [place] [address] Dr. Caitlin Martinez CAST NONE SEEN Normal NONE SEEN [facility] Comment on above: Performed By: #### C BC #### [facility] [address] [place] [address] Dr. Caitlin Martinez Crystals LM Nom (Urine sed) NONE SEEN Normal NONE SEEN [facility] Comment on above: Performed By: #### C BC #### [facility] [address] [place] [address] Dr. Caitlin Martinez Epithelial cells LM Ql (Urine sed) MODERATE Abnormal NONE SEEN /RARE [facility] Comment on above: Performed By: #### C BC #### [facility] [address] [place] [address] Dr. Caitlin Martinez MUCOUS NONE SEEN Normal NONE SEEN [facility] Comment on above: Performed By: #### C BC #### [facility] [address] [place] [address] Dr. Caitlin Martinez RBC NONE SEEN Abnormal 0-2 [facility] Comment on above: Performed By: #### C BC #### [facility] [address] [place] [address] Dr. Caitlin Martinez WBC 2-5 Abnormal NONE SEEN [facility] Comment on above: Performed By: #### C BC #### [facility] [address] [place] [address] Dr. Caitlin Martinez US APPENDIXon 01-15-2022 US [...] DAVID BLACKMON Date: 2022-01-15 14:14 Normal [facility] US PREG GROWTHon 01-15-2022 US PREG GROWTH [...] DAVID BLACKMON Date: 2022-01-15 10:59 Normal [facility] US PREG PLACENTAon US PREG PLACENTA EXAMINATION: [...] DAVID BLACKMON Date: 2022-01-15 10:57 Normal [facility] UA (CLEAN/CATCH) GERMAN TUTOR/MICRO I F IND.on 12-29-2021 Bilirubin Ql (U) Negative Normal NEGATIVE [facility] Comment on above: Performed By: #### C BC #### [facility] [address] [place] [address] Dr. Caitlin Martinez Clarity (U) CLEAR Normal CLEAR [facility] Comment on above: Performed By: #### C BC #### [facility] [address] [place] [address] Dr. Caitlin Martinez Color (U) LT. YELLOW Normal YELLOW [facility] Comment on above: Performed By: #### C BC #### [facility] [address] [place] [address] Dr. Caitlin Martinez Glucose Ql (U) Negative Normal NEGATIVE [facility] Comment on above: Performed By: #### C BC #### [facility] [address] [place] [address] Dr. Caitlin Martinez Hemoglobin Ql (U) Negative Normal NEGATIVE [facility] Comment on above: Performed By: #### C BC #### [facility] [address] [place] [address] Dr. Caitlin Martinez Ketones Ql (U) Negative Normal NEGATIVE [facility] Comment on above: Performed By: #### C BC #### [facility] [address] [place] [address] Dr. Caitlin Martinez LEUKOCYTES Negative Normal NEGATIVE [facility] Comment on above: Performed By: #### C BC #### [facility] [address] [place] [address] Dr. Caitlin Martinez Nitrite Ql (U) Negative Normal NEGATIVE [facility] Comment on above: Performed By: #### C BC #### [facility] [address] [place] [address] Dr. Caitlin Martinez pH (U) 6.5 [pH] Normal 5-9 [facility] Comment on above: Performed By: #### C BC #### [facility] [address] [place] [address] Dr. Caitlin Martinez SPEC GRAVITY 1.020 Normal 1.005-<=1.025 [facility] Comment on above: Performed By: #### C BC #### [facility] [address] [place] [address] Dr. Caitlin Martinez UA PROTEIN Negative Normal NEGATIVE/ TRACE [facility] Comment on above: Performed By: #### C BC #### [facility] [address] [place] [address] Dr. Caitlin Martinez UR MICRO IND NOT INDICATED Normal [facility] Comment on above: Performed By: #### C BC #### [facility] [address] [place] [address] Dr. Caitlin Martinez Urobilinogen Qn (U) 1.0 {Barbara'U}/dL Normal 0.2 - 1. 0 [facility] Comment on above: Performed By: #### C BC #### [facility] [address] [place] [address] Dr. Caitlin Martinez US PREG CERVICAL LENGTHon [...] KIRK OATES Date: 2021-12-29 15:53 Normal [facility] UA (CLEAN/CATCH) GERMAN TUTOR/MICRO I F IND.on 12-18-2021 Bilirubin Ql (U) Negative Normal NEGATIVE [facility] Comment on above: Performed By: #### C BC #### [facility] [address] [place] [address] Dr. Caitlin Martinez Clarity (U) CLEAR Normal CLEAR [facility] Comment on above: Performed By: #### C BC #### [facility] [address] [place] [address] Dr. Caitlin Martinez Color (U) YELLOW Normal YELLOW [facility] Comment on above: Performed By: #### C BC #### [facility] [address] [place] [address] Dr. Caitlin Martinez Glucose Ql (U) Negative Normal NEGATIVE [facility] Comment on above: Performed By: #### C BC #### [facility] [address] [place] [address] Dr. Caitlin Martinez Hemoglobin Ql (U) Negative Normal NEGATIVE [facility] Comment on above: Performed By: #### C BC #### [facility] [address] [place] [address] Dr. Caitlin Martinez Ketones Ql (U) TRACE Abnormal NEGATIVE [facility] Comment on above: Performed By: #### C BC #### [facility] [address] [place] [address] Dr. Caitlin Martinez LEUKOCYTES Negative Normal NEGATIVE [facility] Comment on above: Performed By: #### C BC #### [facility] [address] [place] [address] Dr. Caitlin Martinez Nitrite Ql (U) Negative Normal NEGATIVE [facility] Comment on above: Performed By: #### C BC #### [facility] [address] [place] [address] Dr. Caitlin Martinez pH (U) 6.0 [pH] Normal 5-9 [facility] Comment on above: Performed By: #### C BC #### [facility] [address] [place] [address] Dr. Caitlin Mratinez SPEC GRAVITY 1.025 Normal 1.005-<=1.025 [facility] Comment on above: Performed By: #### C BC #### [facility] [address] [place] [address] Dr. Caitlin Martinez UA PROTEIN Negative Normal NEGATIVE/ TRACE [facility] Comment on above: Performed By: #### C BC #### [facility] [address] [place] [address] Dr. Caitlin Martinez UR MICRO IND NOT INDICATED Normal [facility] Comment on above: Performed By: #### C BC #### [facility] [address] [place] [address] Dr. Caitlin Martinez Urobilinogen Qn (U) 4 {Barbara'U}/dL Abnormal 0.2 - 1.0 [facility] Comment on above: Performed By: #### C BC #### [facility] [address] [place] [address] Dr. Caitlin Martinez RHOGAMon 11-28-2021 RHOGAM Status Information Issued Quantity 1 Product ID Rh Immune Globulin Lot Number [id number] Issue Date/Time [id number] Normal [facility] Comment on above: Performed By: #### I HORACIO #### [facility] [address] [place] [address] Dr. Caitlin Martinez TYPE AND SCREENon 11-27-2021 TYPE AND SCREEN Negative Normal [facility] Comment on above: Performed By: #### T NS #### [facility] [address] [place] [address] Dr. Caitlin Martinez CULTURE URINEon 11-23-2021 CULTURE URINE Culture Observations : No growth Normal [facility] Comment on above: Performed By: #### I HORACIO #### [facility] [address] [place] [address] Dr. Caitlin Martinez UA (CLEAN/CATCH) GERMAN TUTOR/MICRO I F IND.on 11-23-2021 Bilirubin Ql (U) Negative Normal NEGATIVE [facility] Comment on above: Performed By: #### U RCX #### [facility] [address] [place] [address] Dr. Caitlin Martinez Clarity (U) CLEAR Normal CLEAR [facility] Comment on above: Performed By: #### U RCX #### [facility] [address] [place] [address] Dr. Caitlin Martinez Color (U) LT. YELLOW Normal YELLOW [facility] Comment on above: Performed By: #### U RCX #### [facility] [address] [place] [address] Dr. Caitlin Martinez Glucose Ql (U) Negative Normal NEGATIVE [facility] Comment on above: Performed By: #### U RCX #### [facility] [address] [place] [address] Dr. Caitlin Martinez Hemoglobin Ql (U) Negative Normal NEGATIVE [facility] Comment on above: Performed By: #### U RCX #### [facility] [address] [place] [address] Dr. Caitlin Martinez Ketones Ql (U) Negative Normal NEGATIVE [facility] Comment on above: Performed By: #### U RCX #### [facility] [address] [place] [address] Dr. Caitlin Martinez LEUKOCYTES SMALL Abnormal NEGATIVE [facility] Comment on above: Performed By: #### U RCX #### [facility] [address] [place] [address] Dr. Caitlin Martinez Nitrite Ql (U) Negative Normal NEGATIVE [facility] Comment on above: Performed By: #### U RCX #### [facility] [address] [place] [address] Dr. Caitlin Martinez pH (U) 6.5 [pH] Normal 5-9 [facility] Comment on above: Performed By: #### U RCX #### [facility] [address] [place] [address] Dr. Caitlin Martinez SPEC GRAVITY 1.010 Normal 1.005-<=1.025 [facility] Comment on above: Performed By: #### U RCX #### [facility] [address] [place] [address] Dr. Caitlin Martinez UA PROTEIN Negative Normal NEGATIVE/ TRACE [facility] Comment on above: Performed By: #### U RCX #### [facility] [address] [place] [address] Dr. Caitlin Martinez UR MICRO IND INDICATED Normal [facility] Comment on above: Performed By: #### U RCX #### [facility] [address] [place] [address] Dr. Caitlin Martinez Urobilinogen Qn (U) 0.2 {Barbara'U}/dL Normal 0.2 - 1. 0 [facility] Comment on above: Performed By: #### U RCX #### [facility] [address] [place] [address] Dr. Caitlin Martinez URINE MICROSCOPIC ONLYon BACTERIA TRACE Abnormal NONE SEEN [facility] Comment on above: Performed By: #### U RCX #### [facility] [address] [place] [address] Dr. Caitlin Martinez Bacteria identified Cx Nom (U) INDICATED Normal [facility] Comment on above: Performed By: #### U RCX #### [facility] [address] [place] [address] Dr. Caitlin Martinez CAST SEEN Abnormal NONE SEEN [facility] Comment on above: Performed By: #### U RCX #### [facility] [address] [place] [address] Dr. Caitlin Martinez Crystals LM Nom (Urine sed) SEEN Abnormal NONE SEEN [facility] Comment on above: Performed By: #### U RCX #### [facility] [address] [place] [address] Dr. Caitlin Martinez Epithelial cells LM Ql (Urine sed) RARE Normal NONE SEEN /RARE [facility] Comment on above: Performed By: #### U RCX #### [facility] [address] [place] [address] Dr. Caitlin Martinez MUCOUS TRACE Abnormal NONE SEEN [facility] Comment on above: Performed By: #### U RCX #### [facility] [address] [place] [address] Dr. Caitlin Martinez RBC 0-2 Normal 0-2 [facility] Comment on above: Performed By: #### U RCX #### [facility] [address] [place] [address] Dr. Caitlin Martinez WBC 2-5 Abnormal NONE SEEN [facility] Comment on above: Performed By: #### U RCX #### [facility] [address] [place] [address] Dr. Caitlin Martinez GLUCOSE - 1HRon 11-06-2021 Glucose [Mass/Vol] 131 mg/dL Critically high 74-106 T [facility] Comment on above: Performed By: #### I HORACIO #### [facility] [address] [place] [address] Dr. Caitlin Martinez HEMOGRAM AND PLATELon 2021 Hematocrit (Bld) [Volume fraction] 34.2 % Critically low 36.0-48.0 [facility] Comment on above: Performed By: #### C BC #### [facility] [address] [place] [address] Dr. Caitlin Martinez Hemoglobin (Bld) [Mass/Vol] 11.3 g/dL Critically low 12.0-16.0 [facility] Comment on above: Performed By: #### C BC #### [facility] [address] [place] [address] Dr. Caitlin Martinez MCH (RBC) [Entitic mass] 31.7 pg Normal 26.7-34.0 [facility] Comment on above: Performed By: #### C BC #### [facility] [address] [place] [address] Dr. Caitlin Martinez MCHC (RBC) [Mass/Vol] 33.0 g/dL Normal 29.9-35.2 [facility] Comment on above: Performed By: #### C BC #### [facility] [address] [place] [address] Dr. Caitlin Martinez MCV (RBC) [Entitic vol] 96.1 fL Normal 81.0-99.0 [facility] Comment on above: Performed By: #### C BC #### [facility] [address] [place] [address] Dr. Caitlin Martinez PLT 372 103/ul Normal 150-450 [facility] Comment on above: Performed By: #### C BC #### [facility] [address] [place] [address] Dr. Caitlin Martinez RBC 3.56 106/ul Critically low 4.20-5.40 [facility] Comment on above: Performed By: #### C BC #### [facility] [address] [place] [address] Dr. Caitlin Martinez WBC 10.1 103/ul Normal 4.0-11.0 [facility] Comment on above: Performed By: #### C BC #### [facility] [address] [place] [address] Dr. Caitlin Martinez CHLAMYDIA/GONOCOCCUS JONATAN (SW AB/URINE/PAPon 10-31-2021 Chlamydia trachomatis, JONATAN Negative Normal Negative [facility] Comment on above: Performed By: #### C BC #### [facility] [address] [place] [address] Dr. Caitlin Martinez Neisseria gonorrhoeae, JONATAN Negative Normal Negative [facility] Comment on above: Performed By: #### C BC #### [facility] [address] [place] [address] Dr. Caitlin Martinez VAGINITIS/VAGINOSIS DNA PROB Paramjit 10-29-2021 Selena species Negative Normal Negative [facility] Comment on above: Performed By: #### U RCX #### [facility] [address] [address] [address] Caitlin Martinez Gardnerella vaginalis Negative Normal Negative [facility] Comment on above: Performed By: #### U RCX #### [facility] [address] [address] [address] Caitlin Martinez Trichomonas vaginalis Negative Normal Negative [facility] Comment on above: Performed By: #### U RCX #### [facility] [address] [place] [address] Dr. Caitlin Martinez US PREG INCOMPLETE ANATOMYon [...] DAVID BLACKMON Date: 2021-10-26 12:05 Normal [facility] CBC W MANUAL DIFFon 10-25-19 22 ATYPICAL LYMPH # Normal [facility] Comment on above: Performed By: #### U RCX #### [facility] [address] [place] [address] Dr. Caitlin Martinez ATYPICAL LYMPH % Normal [facility] Comment on above: Performed By: #### U RCX #### [facility] [address] [place] [address] Dr. Caitlin Martinez BAND # 0.1 103/ul Normal 0.0-0.3 [facility] Comment on above: Performed By: #### U RCX #### [facility] [address] [place] [address] Dr. Caitlin Martinez BAND % 1 % Normal 0-5 [facility] Comment on above: Performed By: #### U RCX #### [facility] [address] [place] [address] Dr. Caitlin Martinez BASOM # 0.00 103/ul Normal 0.00-0.10 [facility] Comment on above: Performed By: #### U RCX #### [facility] [address] [place] [address] Dr. Caitlin Martinez BASOM % 0.0 % Critically low 0.2-2.0 [facility] Comment on above: Performed By: #### U RCX #### [facility] [address] [place] [address] Dr. Caitlin Martinez BLAST # Normal [facility] Comment on above: Performed By: #### U RCX #### [facility] [address] [place] [address] Dr. Caitlin Martinez BLAST % Normal [facility] Comment on above: Performed By: #### U RCX #### [facility] [address] [place] [address] Dr. Caitlin Martinez CORRECTED WBC Normal 4.0-11.0 [facility] Comment on above: Performed By: #### U RCX #### [facility] [address] [place] [address] Dr. Caitlin Martinez EOS # 0.12 103/ul Normal 0.00-0.70 [facility] Comment on above: Performed By: #### U RCX #### [facility] [address] [place] [address] Dr. Caitlin Martinez EOS% 1.0 % Normal 0.9-7.0 [facility] Comment on above: Performed By: #### U RCX #### [facility] [address] [place] [address] Dr. Caitlin Martinez HCT 31.5 % Critically low 36.0-48.0 [facility] Comment on above: Performed By: #### U RCX #### [facility] [address] [place] [address] Dr. Caitlin Martinez HGB 10.5 g/dl Critically low 12.0-16.0 [facility] Comment on above: Performed By: #### U RCX #### [facility] [address] [place] [address] Dr. Caitlin Martinez LYMPHM # 0.37 103/ul Critically low 1.20-3.80 [facility] Comment on above: Performed By: #### U RCX #### [facility] [address] [address] [address] Caitlin Martinez LYMPHM% 3.0 % Critically low 20.5-60.0 [facility] Comment on above: Performed By: #### U RCX #### [facility] [address] [address] [address] Caitlin Martinez MCH 31.8 pg Normal 26.7-34.0 [facility] Comment on above: Performed By: #### U RCX #### [facility] [address] [place] [address] Dr. Caitlin Martinez MCHC 33.3 g/dl Normal 29.9-35.2 [facility] Comment on above: Performed By: #### U RCX #### [facility] [address] [place] [address] Dr. Caitlin Martinez MCV 95.5 fL Normal 81.0-99.0 [facility] Comment on above: Performed By: #### U RCX #### [facility] [address] [place] [address] Dr. Caitlin Martinez METAMYELOCYTE # Normal [facility] Comment on above: Performed By: #### U RCX #### [facility] [address] [place] [address] Dr. Caitlin Martinez METAMYELOCYTE % Normal [facility] Comment on above: Performed By: #### U RCX #### [facility] [address] [place] [address] Dr. Caitlin Martinez MONOM# 0.73 103/ul Normal 0.30-0.80 [facility] Comment on above: Performed By: #### U RCX #### [facility] [address] [place] [address] Dr. Caitlin Martinez MONOM% 6.0 % Normal 1.7-12.0 [facility] Comment on above: Performed By: #### U RCX #### [facility] [address] [address] [address] Caitlin Martinez MPV 9.5 fL Normal 9.5-13.5 [facility] Comment on above: Performed By: #### U RCX #### [facility] [address] [address] [address] Caitlin Martinez MYELOCYTE # Normal [facility] Comment on above: Performed By: #### U RCX #### [facility] [address] [address] [address] Caitlin Martinez MYELOCYTE % Normal [facility] Comment on above: Performed By: #### U RCX #### [facility] [address] [place] [address] Dr. Caitlin Martinez NRBC Normal [facility] Comment on above: Performed By: #### U RCX #### [facility] [address] [place] [address] Dr. Caitlin Martinez PLT 275 103/ul Normal 150-450 [facility] Comment on above: Performed By: #### U RCX #### [facility] [address] [address] [address] Caitlin Martinez RBC 3.30 106/ul Critically low 4.20-5.40 [facility] Comment on above: Performed By: #### U RCX #### [facility] [address] [place] [address] Dr. Caitlin Martinez RDW 13.6 % Normal 11.0-15.0 [facility] Comment on above: Performed By: #### U RCX #### [facility] [address] [address] [address] Caitlin Martinez SEG # 10.86 103/ul Critically high 1.40-6.50 [facility] Comment on above: Performed By: #### U RCX #### [facility] [address] [place] [address] Dr. Caitlin Martinez SEG % 89.0 % Critically high 43.0-75.0 [facility] Comment on above: Performed By: #### U RCX #### [facility] [address] [place] [address] Dr. Caitlin Martinez WBC 12.2 103/ul Critically high 4.0-11.0 [facility] Comment on above: Performed By: #### U RCX #### [facility] [address] [place] [address] Dr. Caitlin Martinez ER URINE PROFILEon 2 Bilirubin Ql (U) Negative Normal NEGATIVE [facility] Comment on above: Performed By: #### C VDTBH #### [facility] [address] [place] [address] Dr. Caitlin Martinez Clarity (U) SL CLOUDY Abnormal CLEAR [facility] Comment on above: Performed By: #### C VDTBH #### [facility] [address] [place] [address] Dr. Caitlin Martinez Color (U) YELLOW Normal YELLOW [facility] Comment on above: Performed By: #### C VDTBH #### [facility] [address] [place] [address] Dr. Caitlin Martinez ERUAHNadine A micrscopic examination will be performed if indicated. Normal [facility] Comment on above: Performed By: #### C VDTBH #### [facility] [address] [place] [address] Dr. Caitlin Martinez Glucose Ql (U) Negative Normal NEGATIVE [facility] Comment on above: Performed By: #### C VDTBH #### [facility] [address] [place] [address] Dr. Caitlin Martinez Hemoglobin Ql (U) Negative Normal NEGATIVE [facility] Comment on above: Performed By: #### C VDTBH #### [facility] [address] [place] [address] Dr. Caitlin Martinez Ketones Ql (U) >=80 Abnormal NEGATIVE [facility] Comment on above: Performed By: #### C VDTBH #### [facility] [address] [place] [address] Dr. Caitlin Martinez LEUKOCYTES Negative Normal NEGATIVE [facility] Comment on above: Performed By: #### C VDTBH #### [facility] [address] [place] [address] Dr. Caitlin Martinez Nitrite Ql (U) Negative Normal NEGATIVE [facility] Comment on above: Performed By: #### C VDTBH #### [facility] [address] [place] [address] Dr. Caitlin Martinez pH (U) 6.0 [pH] Normal 5-9 [facility] Comment on above: Performed By: #### C VDTB #### [facility] [address] [place] [address] Dr. Caitlin Martinez SPEC GRAVITY 1.020 Normal 1.005-<=1.025 [facility] Comment on above: Performed By: #### C VDTB #### [facility] [address] [place] [address] Dr. Caitlin Martinez UA PROTEIN Negative Normal NEGATIVE/ TRACE [facility] Comment on above: Performed By: #### C VDTBH #### [facility] [address] [place] [address] Dr. Caitlin Martinez UR MICRO IND NOT INDICATED Normal [facility] Comment on above: Performed By: #### C VDTBH #### [facility] [address] [place] [address] Dr. Caitlin Martinez Urobilinogen Qn (U) 1.0 {Barbara'U}/dL Normal 0.2 - 1. 0 [facility] Comment on above: Performed By: #### C VDTBH #### [facility] [address] [place] [address] Dr. Caitlin Martinez INFLUENZA A AND B [facility] 10[facility] Normal [facility] Comment on above: Result Comment: Nega tive for Flu B protein antigen. Infection due to Flu B cannot be ruled out. Flu B antigen in the sample may be below the detection limit of the test. Performed By: #### C VDTBH #### [facility] [address] [place] [address] Dr. Caitlin Martinez INFLUENZA A AG Positive Abnormal NEGATIVE SEE COMMENT [facility] Comment on above: Performed By: #### C VDTBH #### [facility] [address] [place] [address] Dr. Caitlin Martinez INFLUENZA B AG Negative Normal NEGATIVE SEE COMMENT [facility] Comment on above: Performed By: #### C VDTBH #### [facility] [address] [place] [address] Dr. Caitlin Martinez INFLUPOSH SEE BELOW Normal [facility] Comment on above: Result Comment: NOTE : Live attenuated influenzae vaccine viruses can cause a positive result for a rapid influenza diagnostic test if administered up to 7 days prior to rapid testing. Performed By: #### C VDTBH #### [facility] [address] [place] [address] Dr. Caitlin Martinez INTERNAL CONTROLS Within Normal Limits Normal Wi thin Normal Limits [facility] Comment on above: Performed By: #### C VDTBH #### [facility] [address] [place] [address] Dr. Caitlin Martinez PROF CHEM 8 (BAS METB)on Anion gap [Moles/Vol] 14.4 mmol/L Normal [facility] Comment on above: Performed By: #### D IRCMB, ABID #### [facility] [address] [place] [address] Dr. Caitlin Martinez Calcium [Mass/Vol] 8.4 mg/dL Critically low 8.5-10.1 [facility] Comment on above: Performed By: #### D IRCMB, ABID #### [facility] [address] [place] [address] Dr. Caitlin Martinez Chloride [Moles/Vol] 101 mmol/L Normal 98-107 [facility] Comment on above: Performed By: #### D IRCMB, ABID #### [facility] [address] [place] [address] Dr. Caitlin Martinez CO2 [Moles/Vol] 19.7 mmol/L Critically low 21.0-32.0 [facility] Comment on above: Performed By: #### D IRCMB, ABID #### [facility] [address] [place] [address] Dr. Caitlin Martinez Creatinine [Mass/Vol] 0.55 mg/dL Normal 0.55-1.02 [facility] Comment on above: Performed By: #### D IRCMB, ABID #### [facility] [address] [address] [address] Caitlin Martinez EGFR-AF PARAGUAYAN >60 Normal >=60 [facility] Comment on above: Performed By: #### D IRCMB, ABID #### [facility] [address] [address] [address] Caitlin Martinez EGFR-NON AF PARAGUAYAN >60 Normal >=60 [facility] Comment on above: Performed By: #### D IRCMB, ABID #### [facility] [address] [place] [address] Dr. Caitlin Martinez Glucose [Mass/Vol] 91 mg/dL Normal 74-106 [facility] Comment on above: Performed By: #### D IRCMB, ABID #### [facility] [address] [place] [address] Dr. Caitlin Martinez Potassium [Moles/Vol] 3.1 mmol/L Critically low 3.5-5.1 [facility] Comment on above: Performed By: #### D IRCMB, ABID #### [facility] [address] [place] [address] Dr. Caitlin Martinez Sodium [Moles/Vol] 132 mmol/L Critically low 136-[address] [facility] Comment on above: Performed By: #### D IRCMB, ABID #### [facility] [address] [place] [address] Dr. Caitlin Martinez Urea nitrogen [Mass/Vol] 7.0 mg/dL Normal 7.0-18.0 [facility] Comment on above: Performed By: #### D IRCMB, ABID #### [facility] [address] [place] [address] Dr. Caitlin Martinez Urea nitrogen/Creatinine [Mass ratio] 12.7 mg/mg Normal [facility] Comment on above: Performed By: #### D IRCMB, ABID #### [facility] [address] [address] [address] Caitlin Martinez US PREG ANATOMY SINGLEon [...] by: DAVID BLACKMON Date: 2021-09-28 09:17 Normal [facility] CHEMISTRYOrdered By: SYSTEM SYSTEM on 06-21-2021 [place] [address] m[IU]/mL High 1 - 3 mIU/mL [facility] Remisol XR LUMBAR SPINE 2-3 VIEWS (S [...] gas pattern is nonobstructive. There is a uqwbzake-gg-cvrhj amount of stool burden. IMPRESSION: No malalignment. No acute compression deformity. Bntlornu-vf-ffqlt amount of stool burden. [employer] Workstation ID: [id number] Dictated by: LUBA GARCÍA on [facility] Mar 05, 2020 4:09:51 PM EDT Transcribed by: KELVIN GUADALUPE on [facility] Mar 05, 2020 4:17:18 PM EDT Finalized by: LUBA GARCÍA on [facility] Mar 05, 2020 7:52:11 PM EDT [facility] Comment on above: Order Comment: Injur y/Trauma or Illness?:Illness/Other How long have you had these symptoms (acute/chronic)?:Chronic Reason for exam?:low back pain History of cancer?:n Surgeries, chemotherapy, or radiation?:n Type of Exam?:Initial Additional signs and symptoms?:fibromyalgia XR Lumbar Spine 2-3 Views (S tandard)on 03-05-2020 No malalignment. No acute compression deformity. Tzpbzigc-me-ynmkg amount of stool burden. [employer] Workstation ID: [id number] [facility] EXAMINATION: XR LUMBAR SPINE 2-3 VIEWS (STANDARD) [...] gas pattern is nonobstructive. There is a apxmkwav-tf-muzmx amount of stool burden. [facility] Interface, Rad In Jose Luis Speechq - [...] gas pattern is nonobstructive. There is a kircjebi-uh-qxroz amount of stool burden. IMPRESSION: No malalignment. No acute compression deformity. Hptyuios-es-ehydq amount of stool burden. [employer] Workstation ID: [id number] [facility] CNOVon 10-28-2018 CNOV Office Visit (OLVIN ) SANDY GODINEZ ([id number]) 1995 F Date Time Provider Department 10/28/18 [...] Garcia MD REFERRING PROVIDER: Farrah Garcia MD [address] [facility] [place] [address] Consult requested for an opinion regarding the [...] TIME: 12:44 PM Referring Provider: FARRAH GARCIA [[id number]] Allergies As of Date: 10/28/2018 (No Known [...] by WARREN RODRIGUEZ MD on 10/29/[address] [facility] PROGRESSon 10-28-2018 Protein mass conc HNO ID: [id number] Author: Warren Reddy Esa Service: ? Author Type: Physician Type: Progress Notes Filed: 10/29/2018 3:03 PM Note Text: VASCULAR SURGERY INITIAL CONSULT SERVICE DATE: 10/28/2018 SERVICE TIME: 12:44 PM PRIMARY CARE PHYSICIAN: Farrah Garcia MD REFERRING PROVIDER: Farrah Garcia MD [address] [facility] [id number] Consult requested for an opinion regarding the [...] October 28, 2018 TIME: 12:[address] [facility] Vital Signs Date Time Vital Sign Value Performing Clinician Chiquis zaragoza 07-19-2023 09:31-0500 Body mass index (BMI) [Ratio] 26.79 kg/m2 [facility] Nurse [facility] 07-19-2023 09:31-0500 Body weight 73.03 kg [facility] Nurse [facility] 07-19-2023 09:31-0500 Diastolic blood pressure 72 mm[Hg] [facility] Nurse [facility] 07-19-2023 09:31-0500 Systolic blood pressure 118 mm[Hg] [facility] Nurse [facility] Encounters Encounter Date Encounter Type [...] End: 11-08-2023 ambulatory JOSE MIGUEL R JUSTEN [facility] Start: 10-15-2023 End: 10-15-2023 ambulatory JOSE MIGUEL JUSTEN Not Available Start: 09-17-2023 End: 09-17-2023 ambulatory MICHAEL CHAN Not Available Start: 08-19-2023 End: 08-19-2023 ambulatory JOSE MIGUEL JUSTEN Not Available Start: 07-25-2023 Clinisync Result Encounter Joes Miguel Justen DO Work Phone: [facility] Unsolicited Start: 07-25-2023 Clinisync Result Encounter Jose Miguel Justen DO Work Phone: [facility] Unsolicited Start: 07-19-2023 End: 07-19-2023 Office outpatient visit 5 minutes [facility] Justen Nurse [facility] Comment on above: GA: [id number] Start: 07-19-2023 End: 07-19-2023 ambulatory JOSE MIGUEL JUSTEN Not Available Start: 07-08-2023 ambulatory Royer Layne acility:[facility] Start: 07-02-2023 End: 07-02-2023 ambulatory [...] 06-21-2021 End: 09-19-2021 Recurring Jose Miguel CAMPUZANO [facility] Start: 03-05-2020 End: 03-06-2020 Patient encounter procedure [facility] Start: 03-05-2020 End: 03-05-2020 Subsequent hospital visit by physician [facility] Work Phone: [facility] Comment on above: Chronic low [...] encounter procedure 08/19/2023 11:10 AM EST Routine [facility] [address] [place] [id number] Jose Miguel Campuzano, DO [address] [place] [address] [facility] Start: 07-19-2023 End: 07-19-2024 ABO/Rh ABO/Rh Lab Routine Missed menses Expected: 07/19/2023 (Approximate), Expires: 07/19/2024 [facility] Comment on above: Expected: 07/19/2023 (Approximate), Expires: 07/19/2024 Start: 07-19-2023 End: 07-19-2024 Blood type and Indirect antibody screen panel - Blood Type and screen Lab Routine Missed menses Expected: 07/19/2023 (Approximate), Expires: 07/19/2024 [facility] Work Phone: Comment on above: Expected: 07/19/2023 (Approximate), Expires: 07/19/2024 Start: 07-19-2023 End: 07-19-2024 US Pelvis transvaginal US OB transvaginal Imaging Routine Missed menses Expected: 07/19/2023 (Approximate), Expires: 07/19/2024 [facility] Comment on above: Expected: 07/19/2023 (Approximate), Expires: 07/19/2024 Start: 02-16-2020 Influenza vaccinatio n given Sequential Influenza Vaccine (#1) [facility] Start: 2014 Hepatitis C antibody , confirmatory test Hepatitis C Screening [facility] Start: 08-31-2011 HIV screening HIV Screening [facility] Start: 08-31-2007 Vaccination for [place] papillomavirus HPV Vaccines (1 - 2-dose series) [facility] Start: 08-31-1999 History and physical examination, annual for health maintenance Wellness Visit [facility] Start: 1996 Screening for Chlamy tristan trachomatis Chlamydia Screening [facility] Start: 1996 Screening for malign ant neoplasm of cervix Pap Smear [facility] Start: 1996 Tetanus vaccination Tetanus: Every 1 0yrs [facility] Bacteria identified in Urine by Culture Urine culture Microbiology Routine Missed menses Ordered: 07/19/2023 [facility] Comment on above: Ordered: 07/19/2023 CBC W Auto Different ial panel - Blood CBC and differential Lab Routine Missed menses Ordered: 07/19/2023 [facility] Comment on above: Ordered: 07/19/2023 Hemoglobin A1c measurement Hemoglobin A1c Lab Routine Missed menses Ordered: 07/19/2023 [facility] Comment on above: Ordered: 07/19/2023 Hepatitis B virus knight rface Ag [Presence] in Serum or Plasma by Immunoassay Hepatitis B surface antigen Lab Routine Missed menses Ordered: 07/19/2023 [facility] Comment on above: Ordered: 07/19/2023 Hepatitis C virus Ab [Presence] in Serum or Plasma by Immunoassay Hepatitis C antibody Lab Routine Missed menses Ordered: 07/19/2023 [facility] Comment on above: Ordered: 07/19/2023 HIV-1/HIV-2 antigen/antibody combination immunoassay HIV-1 and HIV-2 antibodies Lab Routine Missed menses Ordered: 07/19/2023 [facility] Comment on above: Ordered: 07/19/2023 Reagin Ab [Presence] in Serum by RPR RPR Lab Routine Missed menses Ordered: 07/19/2023 [facility] Comment on above: Ordered: 07/19/2023 Rubella antibody, IgG Rubella an tibody, IgG Lab Routine Missed menses Ordered: 07/19/2023 [facility] Comment on above: Ordered: 07/19/2023 Payers Date Payer Category Payer Self-pay 2022 Medicaid [employer] [place] [id number] 2022-Present [address] [place] [address] [id number] 1995 Unknown [id number] 2.16.840.1.750777.3.579.2.903 1996 Unknown [id number] 2.16.840.1.514195.3.579.2.593 1996 Unknown [id number] 2.16.840.1.327011.3.579.2.593 1996 Unknown [id number] 2.16.840.1.391517.3.579.2.593 1996 Unknown [id number] 2.16.840.1.013029.3.579.2.593 1996 Unknown [id number] 2.16.840.1.224862.3.579.2.593 1996 Unknown [id number] 2.16.840.1.312040.3.579.2.593 1996 Unknown [id number] 2.16.840.1.112552.3.579.2.593 1996 Unknown [id number] 2.16.840.1.325757.3.579.2.593 1996 Unknown [id number] 2.16.840.1.813429.3.579.2.593 1996 Unknown [id number] 2.16.840.1.516081.3.579.2.593 1996 Unknown [id number] 2.16.840.1.447916.3.579.2.593 1996 Unknown [id number] 2.16.840.1.961740.3.579.2.593 1996 Unknown [id number] 2.16.840.1.717082.3.579.2.593 1996 Unknown [id number] 2.16.840.1.310824.3.579.2.593 1996 Unknown [id number] 2.16.840.1.262942.3.579.2.593 1996 Unknown [id number] 2.16.840.1.530000.3.579.2.593 1996 Unknown [id number] 2.16.840.1.640454.3.579.2.593 1996 Unknown [id number] 2.16.840.1.288871.3.579.2.593 1996 Unknown [id number] 2.16.840.1.501450.3.579.2.593 1996 Unknown [id number] 2.16.840.1.207910.3.579.2.593 1996 Unknown [id number] 2.16.840.1.662297.3.579.2.593 1996 Unknown [id number] 2.16.840.1.884576.3.579.2.1286 1996 Unknown [id number] 2.16.840.1.770851.3.579.2.1286 1996 Unknown [id number] 2.16.840.1.739618.3.579.2.1259 1996 Unknown [id number] 2.16.840.1.884784.3.579.2.1259 1996 Unknown [id number] 2.16.840.1.054221.3.579.2.1259 1996 Unknown [id number] 2.16.840.1.183976.3.579.2.9 1996 Unknown [id number] 2.16.840.1.118729.3.579.2.9 1996 Unknown [id number] 2.16.840.1.417765.3.579.2.1258 1996 Unknown [id number] 2.16.840.1.984850.3.579.2.1258 1996 Unknown [id number] 2.16.840.1.585839.3.579.2.1258 1996 Unknown [id number] 2.16.840.1.192968.3.579.2.1258 1996 Unknown [id number] 2.16.840.1.423144.3.579.2.1259 1959 Unknown [id number] 1959 Unknown [id number] Unknown COMMERCIAL COMME RCIAL MISCELLANEOUS [id number] Effective for all dates [id number] 1.2.840.292782.1.13.385.2.7.3. 432197.315 Unknown [id number] Unknown [id number] 2.16.840.1.832689.3.579.2.531 Social History Date Type Detail Facility Tobacco smoking stat [facility] Unknown if ever smoked [facility] Sex Assigned At Not on file [facility] Start: 12-07-2022 [facility]igned At [facility] Start: 12-07-2022 Tobacco smoking status NHIS Never smoked tobacco [facility] Start: 07-19-2023 Alcohol intake Current drinker of alcohol (finding) [facility] Start: 12-07-2022 History of Social function [facility] Start: 12-07-2022 Alcohol Comment 1-2 drinks less than monthly in the past year [facility] Start: 05-31-2023 [facility] Start: 1995 Sex Assigned At Female [facility] Start: 11-29-2022 Gender identity Identifies as female gender (finding) [facility] Start: 11-29-2022 Sexual orientation Heterosexual (finding) [facility] History of Present illness Narrative [...] Procedure Laterality Date DILATION AND CURETTAGE 2018 LA TONSILLECTOMY & ADENOIDECTOMY AGE 13/> 2015 WISDOM [...] sent for nausea to pharmacy. Pt desires Page 21 and understands to have it done at 10 weeks along w/her labs. Follow Up: Patient is to have labs drawn at directed and return to office for initial OB appointment with provider. Patient may call office as needed with any concerns or questions. Nurse Visit Completed by: Cori Daniel MA documented in this encounter [facility] Clinical Note 01-16-2022 Note Date [...] authenticated by: Cecelia FOOTE Date: 2022-01-16 21:33 [facility] Clinical Note 01-16-2022 Note Date [...] authenticated by: Cecelia FOOTE Date: 2022-01-16 21:33 [facility] Clinical Note 01-15-2022 Note Date [...] by: IGOR DIAZ Date: 2022-01-15 10:10 [facility] Evaluation + Plan note Note Date & Type Note Facility Evaluation + Plan note No data available for this section [facility] Evaluation note Note Date & Type Note Facility Evaluation note Diagnosis Missed menses Nausea Nausea alone documented in this encounter [facility] Hospital Discharge instructions Note Date & Type Note Facility Hospital Discharge instructions No data available for this section [facility] Summary Purpose Family History No Family History Records FoundNo Family History Records FoundNo Family History Records FoundNo Family History Records FoundNo Family History Records FoundNo Family History Records FoundNo Family History Records Found Advance Directives No Advanced Directives Records FoundDocuments on File Type Date Recorded 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 DATE CREATED AUTHOR AUTHOR'S ORGANIZ ATION 03/21/2020 [facility] DATE CREATED AUTHOR AUTHOR'S ORGANIZ ATION 08/04/2022 [facility] DATE CREATED AUTHOR AUTHOR'S ORGANIZ ATION 09/06/2022 [facility] DATE CREATED AUTHOR AUTHOR'S ORGANIZ ATION 09/17/2023 [facility] DATE CREATED AUTHOR AUTHOR'S ORGANIZ ATION 11/09/2023 [facility] DATE CREATED AUTHOR AUTHOR'S ORGANIZ ATION 01/09/2024 [facility] Reason for Visit (unrecogniz ed section [...] BE BASED ON THE PRIMARY CLINICAL RECORDS. [facility]. provides no warranty or guarantee of the accuracy or completeness of information in this document.
--- NOTE | 2024-01-13 10:56 | US_ITS ---
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 BREATHING MOVEMENTS: 2 GROSS BODY MOVEMENTS: 2 TONE: 2 QUALITATIVE AMNIOTIC FLUID VOLUME: 2 PRESENTATION: CEPHALIC HEART RATE: 152.54 bpm AMNIOTIC FLUID VOLUME: 16.55 cm GESTATIONAL AGE: 34 weeks 3 days US/US OB BPP w non-stress IMPRESSION: Total biophysical profile score: 8 Electronically authenticated by: DAVID BLACKMON Date: 01/13/2024 12:00
[2024-01-13 11:14] VITALS: TEMP 36.3
[2024-01-13 11:15] VITALS: BP 122/63; PULSE 101
== END 2024-01-13 12:04 | disposition home or self-care (01) ==
LOC: US 07:03 → FBC 10:54
PROVIDERS: PCP Nurse Practitioner Family; Visit Provider Obstetrics & Gynecology
DX: O43.113 Circumvallate placenta, third trimester (principal); O09.899 Supervision of other high risk pregnancies, unspecified trimester; Z3A.34 34 weeks gestation of pregnancy
CPT/HCPCS: 76818; 76820

== ENCOUNTER 2024-01-16 07:11 | Outpatient (OUT) | payer OTHER, SELFPAY ==
--- OUTSIDE RECORDS SUMMARY | 2024-01-16 07:14 | XMS_ITS | CCD ---
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; 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: [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] Onset: 02-05-2022 Episodic Other [...] WITH AUTO DIFFon BASOPHILS ABSOLUTE AUTO 0.1 [facility] Basophils/100 WBC (Bld) 0.7 % 0.2 - 2.0 % [facility] Eosinophils/100 WBC (Bld) 2.6 % 0.9 - 7.0 % [facility] Erythrocyte distribution width (RBC) [Ratio] 13.4 % 11.0 - 15.0 % [facility] Hematocrit (Bld) [Volume fraction] 39.0 % 36.0 - 48.0 % [facility] Hemoglobin (Bld) [Mass/Vol] 12.8 g/dL 12.0 - 16.0 g/dL [facility] IMMATURE GRANULOCYTES ABS AUTO 0.01 [facility] Immature granulocytes/100 WBC (Bld) 0.1 % 0.0 - 0.5 % [facility] LYMPHOCYTES ABSOLUTE AUTO 2.2 [facility] Lymphocytes/100 WBC (Bld) 26.1 % 20.5 - 60.0 % [facility] MCH (RBC) [Entitic mass] 28.6 pg 26.7 - 34.0 pg [facility] MCHC (RBC) [Mass/Vol] 32.8 g/dL 29.9 - 35.2 g/dL [facility] MCV (RBC) [Entitic vol] 87.2 fL 81.0 - 99.0 fL [facility] MONOCYTES ABSOLUTE AUTO 0.5 [facility] Monocytes/100 WBC (Bld) 5.7 % 1.7 - 12.0 % [facility] NEUTROPHILS ABSOLUTE AUTO 5.5 [facility] Neutrophils/100 WBC (Bld) 64.8 % 43.0 - 75.0 % [facility] Platelet mean volume (Bld) [Entitic vol] 10.1 fL 9.5 - 13.5 fL [facility] TBH EO # 0.2 [facility] PLT 340 [facility] RBC 4.47 [facility] WBC 8.4 [facility] HCG ( test) Ql (U)o n 07-19-2023 Interpretation and review of laboratory results Abnormal [facility] Preg Test, Ur Positive [facility] Urinalysis macro (dipstick) panel (U)on 07-19-2023 Bilirubin, UA Negative Negative - 4(70) +++ mg/dL [facility] Blood, UA Positive Negative - 50 Anselmo/mcL [facility] Comment on above: moderate Clarity, UA Clear [facility] Color, UA [place] [facility] Glucose, UA Negative Negative - 1999(110) ++++ mg/dL [facility] Interpretation and review of laboratory results Abnormal [facility] Ketones, UA Positive Negative - 160(16) ++++ mg/dL [facility] Comment on above: trace Leukocytes, UA Positive Negative - 500+++ Monik/mcL [facility] Comment on above: small Nitrite, UA Negative Negative - Positive [facility] pH, UA 6.0 5 - 9 [facility] Protein, UA Positive Negative - 1999(20) ++++ mg/dL [facility] Comment on above: 30 Spec Grav, UA 1.030 1 - 1.03 [facility] Urobilinogen, UA 1.0 0.2 - 12 mg/dL [facility] In office Testingon 09-07-19 23 In office Testing [id number] 1.00CD:127 Normal [facility] CBC AUTO DIFFon 07-30-2022 BASO # 0.1 103/ul Normal 0.0-0.1 [facility] Comment on above: Performed By: #### U RCX #### [facility] [address] [place] [address] Dr. Caitlin Martinez Basophils/100 WBC (Bld) 1.1 % Normal 0.2-2.0 [facility] Comment on above: Performed By: #### U RCX #### [facility] [address] [place] [address] Dr. Caitlin Martinez EO # 0.3 103/ul Normal 0.0-0.7 [facility] Comment on above: Performed By: #### U RCX #### [facility] [address] [place] [address] Dr. Caitlin Martinez Eosinophils/100 WBC (Bld) 4.7 % Normal 0.9-7.0 [facility] Comment on above: Performed By: #### U RCX #### [facility] [address] [place] [address] Dr. Caitlin Martinez Erythrocyte distribution width (RBC) [Ratio] 14.7 % Normal 11.0-15.0 [facility] Comment on above: Performed By: #### U RCX #### [facility] [address] [place] [address] Dr. Caitlin Martinez Hematocrit (Bld) [Volume fraction] 39.3 % Normal 36.0-48.0 [facility] Comment on above: Performed By: #### U RCX #### [facility] [address] [place] [address] Dr. Caitlin Martinez Hemoglobin (Bld) [Mass/Vol] 12.7 g/dL Normal 12.0-16.0 [facility] Comment on above: Performed By: #### U RCX #### [facility] [address] [place] [address] Dr. Caitlin Martinez IG # 0.02 10e3/ul Normal 0.00-0.03 [facility] Comment on above: Performed By: #### U RCX #### [facility] [address] [place] [address] Dr. Caitlin Martinez IG % 0.3 % Normal 0.0-0.5 [facility] Comment on above: Performed By: #### U RCX #### [facility] [address] [place] [address] Dr. Caitlin Martinez LYMPH # 2.5 103/ul Normal 1.2-3.8 [facility] Comment on above: Performed By: #### U RCX #### [facility] [address] [place] [address] Dr. Caitlin Martinez Lymphocytes/100 WBC (Bld) 34.5 % Normal 20.5-60.0 [facility] Comment on above: Performed By: #### U RCX #### [facility] [address] [place] [address] Dr. Caitlin Martinez MANUAL DIFF REQ NO Normal [facility] Comment on above: Performed By: #### U RCX #### [facility] [address] [place] [address] Dr. Caitlin Martinez MCH (RBC) [Entitic mass] 27.3 pg Normal 26.7-34.0 [facility] Comment on above: Performed By: #### U RCX #### [facility] [address] [place] [address] Dr. Caitlin Martinez MCHC (RBC) [Mass/Vol] 32.3 g/dL Normal 29.9-35.2 [facility] Comment on above: Performed By: #### U RCX #### [facility] [address] [place] [address] Dr. Caitlin Martinez MCV (RBC) [Entitic vol] 84.5 fL Normal 81.0-99.0 [facility] Comment on above: Performed By: #### U RCX #### [facility] [address] [place] [address] Dr. Caitlin Martinez MONO # 0.5 103/ul Normal 0.3-0.8 [facility] Comment on above: Performed By: #### U RCX #### [facility] [address] [place] [address] Dr. Caitlin Martinez Monocytes/100 WBC (Bld) 7.3 % Normal 1.7-12.0 [facility] Comment on above: Performed By: #### U RCX #### [facility] [address] [place] [address] Dr. Caitlin Martinez NEUT # 3.8 103/ul Normal 1.4-6.5 [facility] Comment on above: Performed By: #### U RCX #### [facility] [address] [place] [address] Dr. Caitlin Martinez Neutrophils/100 WBC (Bld) 52.1 % Normal 43.0-75.0 [facility] Comment on above: Performed By: #### U RCX #### [facility] [address] [place] [address] Dr. Caitlin Martinez Platelet mean volume (Bld) [Entitic vol] 9.0 fL Critically low 9.5-13.5 [facility] Comment on above: Performed By: #### U RCX #### [facility] [address] [place] [address] Dr. Caitlin Martinez PLT 368 103/ul Normal 150-450 [facility] Comment on above: Performed By: #### U RCX #### [facility] [address] [place] [address] Dr. Caitlin Martinez RBC 4.65 106/ul Normal 4.20-5.40 [facility] Comment on above: Performed By: #### U RCX #### [facility] [address] [place] [address] Dr. Caitlin Martinez WBC 7.2 103/ul Normal 4.0-11.0 [facility] Comment on above: Performed By: #### U RCX #### [facility] [address] [place] [address] Dr. Caitlin Martinez IRONon 07-30-2022 Iron [Mass/Vol] 43.0 ug/dL Critically low 50.0-170.0 [facility] Comment on above: Performed By: #### U RCX #### [facility] [address] [place] [address] Dr. Caitlin Martinez PAP ACOG PANEL 2: 21 to 30on 07-30-2022 . . Normal [facility] Comment on above: Performed By: #### U RCX #### [facility] [address] [place] [address] Dr. Caitlin Martinez Age Gdln ACOG Testing - [facility] Comment on above: Performed By: #### U RCX #### [facility] [address] [place] [address] Dr. Caitlin Martinez DIAGNOSIS: Comment [facility] Comment on above: Result Comment: NEGA TIVE FOR INTRAEPITHELIAL LESION OR MALIGNANCY. Performed By: #### U RCX #### [facility] [address] [place] [address] Dr. Caitlin Martinez Methodology: Comment [facility] Comment on above: Result Comment: This liquid based ThinPrep(R) pap test was screened with the use of an image guided system. Performed By: #### U RCX #### [facility] [address] [place] [address] Dr. Ciatlin Martinez Note: Comment [facility] Comment on above: Result Comment: The Pap smear is a screening test designed to aid in the detection of premalignant and malignant conditions of the uterine cervix. It is not a diagnostic procedure and should not be used as the sole means of detecting cervical cancer. Both false-positive and false-negative reports do occur. . Performed By: #### U RCX #### [facility] [address] [place] [address] Dr. Caitlin Martinez Performed by: Comment [facility] Comment on above: Result Comment: Bhavna Cormier, Establishment Guide (ASCP) Performed By: #### U RCX #### [facility] [address] [place] [address] Dr. Caitlin Martinez Reflex Criteria: Comment [facility] Comment on above: Result Comment: The HPV DNA reflex criteria were not met with this specimen result therefore, no HPV testing was performed. . Performed By: #### U RCX #### [facility] [address] [place] [address] Dr. Caitlin Martinez Specimen adequacy: Comment Normal [facility] Comment on above: Result Comment: Sati sfactory for evaluation. Endocervical and/or squamous metaplastic cells (endocervical component) are present. Performed By: #### U RCX #### [facility] [address] [place] [address] Dr. Caitlin Martinez INSULINon 04-19-2022 Insulin 9.1 uIU/mL Normal 2.6-24.9 [facility] Comment on above: Performed By: #### I HORACIO #### [facility] [address] [place] [address] Dr. Caitlin Martinez CBC AUTO DIFFon 04-18-2022 BASO # 0.1 103/ul Normal 0.0-0.1 [facility] Comment on above: Performed By: #### U RCX #### [facility] [address] [place] [address] Dr. Caitlin Martinez Basophils/100 WBC (Bld) 1.0 % Normal 0.2-2.0 [facility] Comment on above: Performed By: #### U RCX #### [facility] [address] [place] [address] Dr. Caitlin Martinez EO # 0.3 103/ul Normal 0.0-0.7 [facility] Comment on above: Performed By: #### U RCX #### [facility] [address] [place] [address] Dr. Caitlin Martinez Eosinophils/100 WBC (Bld) 4.1 % Normal 0.9-7.0 [facility] Comment on above: Performed By: #### U RCX #### [facility] [address] [place] [address] Dr. Caitlin Martinez Erythrocyte distribution width (RBC) [Ratio] 16.0 % Critically high 11.0-15.0 [facility] Comment on above: Performed By: #### U RCX #### [facility] [address] [address] [address] Caitlin Martinez Hematocrit (Bld) [Volume fraction] 35.7 % Critically low 36.0-48.0 [facility] Comment on above: Performed By: #### U RCX #### [facility] [address] [place] [address] Dr. Caitlin Martinez Hemoglobin (Bld) [Mass/Vol] 10.9 g/dL Critically low 12.0-16.0 [facility] Comment on above: Performed By: #### U RCX #### [facility] [address] [address] [address] Caitlin Martinez IG # 0.07 10e3/ul Critically high 0.00-0.03 [facility] Comment on above: Performed By: #### U RCX #### [facility] [address] [place] [address] Dr. Caitlin Martinez IG % 1.0 % Critically high 0.0-0.5 [facility] Comment on above: Performed By: #### U RCX #### [facility] [address] [address] [address] Caitlin Martinez LYMPH # 2.3 103/ul Normal 1.2-3.8 [facility] Comment on above: Performed By: #### U RCX #### [facility] [address] [place] [address] Dr. Caitlin Martinez Lymphocytes/100 WBC (Bld) 31.4 % Normal 20.5-60.0 [facility] Comment on above: Performed By: #### U RCX #### [facility] [address] [place] [address] Dr. Caitlin Martinez MANUAL DIFF REQ NO Normal [facility] Comment on above: Performed By: #### U RCX #### [facility] [address] [place] [address] Dr. Caitlin Martinez MCH (RBC) [Entitic mass] 24.8 pg Critically low 26.7-34.0 [facility] Comment on above: Performed By: #### U RCX #### [facility] [address] [address] [address] Caitlin Martinez MCHC (RBC) [Mass/Vol] 30.5 g/dL Normal 29.9-35.2 [facility] Comment on above: Performed By: #### U RCX #### [facility] [address] [address] [address] Caitlin Martinez MCV (RBC) [Entitic vol] 81.1 fL Normal 81.0-99.0 [facility] Comment on above: Performed By: #### U RCX #### [facility] [address] [place] [address] Dr. Caitlin Martinez MONO # 0.5 103/ul Normal 0.3-0.8 [facility] Comment on above: Performed By: #### U RCX #### [facility] [address] [place] [address] Dr. Caitlin Martinez Monocytes/100 WBC (Bld) 6.6 % Normal 1.7-12.0 [facility] Comment on above: Performed By: #### U RCX #### [facility] [address] [place] [address] Dr. Caitlin Martinez NEUT # 4.1 103/ul Normal 1.4-6.5 [facility] Comment on above: Performed By: #### U RCX #### [facility] [address] [place] [address] Dr. Caitlin Martinez Neutrophils/100 WBC (Bld) 55.9 % Normal 43.0-75.0 [facility] Comment on above: Performed By: #### U RCX #### [facility] [address] [place] [address] Dr. Caitiln Martinez Platelet mean volume (Bld) [Entitic vol] 9.4 fL Critically low 9.5-13.5 [facility] Comment on above: Performed By: #### U RCX #### [facility] [address] [place] [address] Dr. Caitlin Martinez PLT 369 103/ul Normal 150-450 [facility] Comment on above: Performed By: #### U RCX #### [facility] [address] [address] [address] Caitlin Martinez RBC 4.40 106/ul Normal 4.20-5.40 [facility] Comment on above: Performed By: #### U RCX #### [facility] [address] [address] [address] Caitlin Martinez WBC 7.3 103/ul Normal 4.0-11.0 [facility] Comment on above: Performed By: #### U RCX #### [facility] [address] [address] [address] Caitlin Martinez FREE THYROXINE INDEX T7on FTI 2.20 Normal 1.30-4.50 [facility] Comment on above: Performed By: #### I HORACIO #### [facility] [address] [place] [address] Dr. Caitlin Martinez T3U 29.0 % Critically low 30.0-39.0 [facility] Comment on above: Performed By: #### I HORACIO #### [facility] [address] [address] [address] Caitlin Martinez T4 [Mass/Vol] 7.60 ug/dL Normal 4.80-13.90 [facility] Comment on above: Performed By: #### I HORACIO #### [facility] [address] [place] [address] Dr. Caitlin Martinez GLYCOHEMOGLOBIN A1Con 2021 ADA RECOMMENDATION SEE BELOW Normal [facility] Comment on above: Result Comment: ADA RECOMMENDED LIMIT 4.0 - 6.0 ADA THERAPEUTIC TARGET < 7.0 ACTION SUGGESTED > 7.0 Performed By: #### U RCX #### [facility] [address] [address] [address] Caitlin Martinez Glucose [Mass/Vol] 97 mg/dL Normal [facility] Comment on above: Performed By: #### U RCX #### [facility] [address] [address] [address] Caitlin Martinez HbA1c (Bld) [Mass fraction] 5.0 % Normal 4.5-6.2 [facility] Comment on above: Performed By: #### U RCX #### [facility] [address] [address] [address] Caitlin Martinez IRONon 04-18-2022 Iron [Mass/Vol] 35.0 ug/dL Critically low 50.0-170.0 [facility] Comment on above: Performed By: #### I HORACIO #### [facility] [address] [address] [address] Caitlin Martinez LIPID PROFILEon 04-18-2022 CHOL-HDL RATIO NORM SEE BELOW Normal [facility] Comment on above: Result Comment: 3.3 - 4.4 LOW RISK 4.4 - 7.1 AVERAGE RISK 7.1 - 11.0 MODERATE RISK >11.0 HIGH RISK Performed By: #### I HORACIO #### [facility] [address] [place] [address] Dr. Caitlin Martinez Cholesterol [Mass/Vol] 221 mg/dL Critically high <=200 [facility] Comment on above: Performed By: #### I HORACIO #### [facility] [address] [place] [address] Dr. Caitlin Martinez Cholesterol in HDL [Mass/Vol] 67 mg/dL Critically high 40-60 [facility] Comment on above: Performed By: #### I HORACIO #### [facility] [address] [place] [address] Dr. Caitlin Martinez Cholesterol in LDL [Mass/Vol] 142.4 mg/dL Normal [facility] Comment on above: Performed By: #### I HORACIO #### [facility] [address] [place] [address] Dr. Caitlin Martinez Cholesterol.total/Cho lesterol in HDL [Mass ratio] 3.3 {ratio} Normal [facility] Comment on above: Performed By: #### I HORACIO #### [facility] [address] [place] [address] Dr. Caitlin Martinez HDL NORMAL > or = 60 mg/dl - LO W CARDIOVASCULAR RISK <40 mg/dl - HIGH CARDIOVASCULAR RISK Normal [facility] Comment on above: Performed By: #### I HORACIO #### [facility] [address] [address] [address] Caitlin Martinez LDL CALC NORMAL SEE BELOW Normal [facility] Comment on above: Result Comment: <100 mg/dl OPTIMAL 100 - 129 mg/dl NEAR OR ABOVE OPTIMAL 130 - 159 mg/dl BORDERLINE HIGH 160 - 189 mg/dl HIGH >190 mg/dl VERY HIGH Performed By: #### I HORACIO #### [facility] [address] [address] [address] Caitlin Martinez Triglyceride [Mass/Vol] 58 mg/dL Normal <=150 [facility] Comment on above: Performed By: #### I HORACIO #### [facility] [address] [address] [address] Caitlin Martinez VLDL CALC 11.6 mg/dL Normal [facility] Comment on above: Performed By: #### I HORACIO #### [facility] [address] [place] [address] Dr. Caitlin Martinez PROF 14(COMP METB)on 022 Albumin [Mass/Vol] 3.8 g/dL Normal 3.4-5.0 [facility] Comment on above: Performed By: #### I HORACIO #### [facility] [address] [place] [address] Dr. Caitlin Martinez Albumin/Globulin [Mass ratio] 1.1 {ratio} Normal [facility] Comment on above: Performed By: #### I HORACIO #### [facility] [address] [place] [address] Dr. Caitlin Martinez ALP [Catalytic activity/Vol] 132 U/L Critically high 46-116 [facility] Comment on above: Performed By: #### I HORACIO #### [facility] [address] [address] [address] Caitlin Martinez ALT [Catalytic activity/Vol] 55 U/L Normal 14-59 [facility] Comment on above: Performed By: #### I HORACIO #### [facility] [address] [place] [address] Dr. Caitlin Martinez Anion gap [Moles/Vol] 12.6 mmol/L Normal [facility] Comment on above: Performed By: #### I HORACIO #### [facility] [address] [address] [address] Caitlin Martinez AST [Catalytic activity/Vol] 27 U/L Normal 15-37 [facility] Comment on above: Performed By: #### I HORACIO #### [facility] [address] [address] [address] Caitlin Martinez Bilirubin [Mass/Vol] 0.6 mg/dL Normal 0.2-1.0 [facility] Comment on above: Performed By: #### I HORACIO #### [facility] [address] [address] [address] Caitlin Martinez Calcium [Mass/Vol] 9.1 mg/dL Normal 8.5-10.1 [facility] Comment on above: Performed By: #### I HORACIO #### [facility] [address] [place] [address] Dr. Caitlin Martinez Chloride [Moles/Vol] 106 mmol/L Normal 98-107 [facility] Comment on above: Performed By: #### I HORACIO #### [facility] [address] [address] [address] Caitlin Martinez CO2 [Moles/Vol] 26.5 mmol/L Normal 21.0-32.0 [facility] Comment on above: Performed By: #### I HORACIO #### [facility] [address] [place] [address] Dr. Caitlin Martinez Creatinine [Mass/Vol] 0.63 mg/dL Normal 0.55-1.02 [facility] Comment on above: Performed By: #### I HORACIO #### [facility] [address] [address] [address] Caitlin Mratinez EGFR-AF [place] >60 Normal >=60 [facility] Comment on above: Performed By: #### I HORACIO #### [facility] [address] [address] [address] Caitlin Martinez EGFR-NON AF [place] >60 Normal >=60 [facility] Comment on above: Performed By: #### I HORACIO #### [facility] [address] [address] [address] Caitlin Martinez Globulin (S) [Mass/Vol] 3.6 g/dL Normal [facility] Comment on above: Performed By: #### I HORACIO #### [facility] [address] [address] [address] Caitlin Martinez Glucose [Mass/Vol] 98 mg/dL Normal 74-106 [facility] Comment on above: Performed By: #### I HORACIO #### [facility] [address] [address] [address] Caitlin Martinez Potassium [Moles/Vol] 4.1 mmol/L Normal 3.5-5.1 [facility] Comment on above: Performed By: #### I HORACIO #### [facility] [address] [place] [address] Dr. Caitlin Martinez Protein [Mass/Vol] 7.4 g/dL Normal 6.4-8.2 [facility] Comment on above: Performed By: #### I HORACIO #### [facility] [address] [place] [address] Dr. Caitlin Martinez Sodium [Moles/Vol] 141 mmol/L Normal 136-145 [facility] Comment on above: Performed By: #### I HORACIO #### [facility] [address] [place] [address] Dr. Caitlin Martinez Urea nitrogen [Mass/Vol] 9.0 mg/dL Normal 7.0-18.0 [facility] Comment on above: Performed By: #### I HORACIO #### [facility] [address] [place] [address] Dr. Caitlin Martinez Urea nitrogen/Creatinine [Mass ratio] 14.3 mg/mg Normal [facility] Comment on above: Performed By: #### I HORACIO #### [facility] [address] [place] [address] Dr. Caitlin Martinez TSHon 04-18-2022 TSH 1.349 uIU/mL Normal 0.358-3.740 [facility] Comment on above: Performed By: #### I HORACIO #### [facility] [address] [place] [address] Dr. Caitlin Martinez ANTIBODY ID PANELon 02-15-20 22 ANTIBODY ID PANEL Antibody ID Anti-D Blood Bank Notes most likely due to Rhogam given on 12/01/21 Normal [facility] Comment on above: Performed By: #### D IRCMB, ABID #### [facility] [address] [place] [address] Dr. Caitlin Martinez CTA CHEST WO W [...] by: GAGANDEEP WHEELER Date: 2022-02-10 22:55 Normal [facility] CBC AUTO DIFFon 02-10-2022 BASO # 0.1 103/ul Normal 0.0-0.1 [facility] Comment on above: Performed By: #### C BC #### [facility] [address] [place] [address] Dr. Caitlin Martinez Basophils/100 WBC (Bld) 0.4 % Normal 0.2-2.0 [facility] Comment on above: Performed By: #### C BC #### [facility] [address] [place] [address] Dr. Caitlin Martinez EO # 0.5 103/ul Normal 0.0-0.7 [facility] Comment on above: Performed By: #### C BC #### [facility] [address] [place] [address] Dr. Caitlin Martinez Eosinophils/100 WBC (Bld) 4.2 % Normal 0.9-7.0 [facility] Comment on above: Performed By: #### C BC #### [facility] [address] [place] [address] Dr. Caitlin Martinez Erythrocyte distribution width (RBC) [Ratio] 14.7 % Normal 11.0-15.0 [facility] Comment on above: Performed By: #### C BC #### [facility] [address] [place] [address] Dr. Caitlin Martinez Hematocrit (Bld) [Volume fraction] 31.1 % Critically low 36.0-48.0 [facility] Comment on above: Performed By: #### C BC #### [facility] [address] [place] [address] Dr. Caitlin Martinez Hemoglobin (Bld) [Mass/Vol] 9.6 g/dL Critically low 12.0-16.0 [facility] Comment on above: Performed By: #### C BC #### [facility] [address] [place] [address] Dr. Caitlin Martinez IG # 0.28 10e3/ul Critically high 0.00-0.03 [facility] Comment on above: Performed By: #### C BC #### [facility] [address] [place] [address] Dr. Caitlin Martinez IG % 2.3 % Critically high 0.0-0.5 [facility] Comment on above: Performed By: #### C BC #### [facility] [address] [place] [address] Dr. Caitlin Martinez LYMPH # 3.3 103/ul Normal 1.2-3.8 [facility] Comment on above: Performed By: #### C BC #### [facility] [address] [place] [address] Dr. Caitlin Martinez Lymphocytes/100 WBC (Bld) 26.9 % Normal 20.5-60.0 [facility] Comment on above: Performed By: #### C BC #### [facility] [address] [place] [address] Dr. Caitlin Martinez MANUAL DIFF REQ NO Normal [facility] Comment on above: Performed By: #### C BC #### [facility] [address] [place] [address] Dr. Caitlin Martinez MCH (RBC) [Entitic mass] 26.2 pg Critically low 26.7-34.0 [facility] Comment on above: Performed By: #### C BC #### [facility] [address] [place] [address] Dr. Caitlin Martinez MCHC (RBC) [Mass/Vol] 30.9 g/dL Normal 29.9-35.2 [facility] Comment on above: Performed By: #### C BC #### [facility] [address] [place] [address] Dr. Caitlin Martinez MCV (RBC) [Entitic vol] 84.7 fL Normal 81.0-99.0 [facility] Comment on above: Performed By: #### C BC #### [facility] [address] [place] [address] Dr. Caitlin Martinez MONO # 1.1 103/ul Critically high 0.3-0.8 [facility] Comment on above: Performed By: #### C BC #### [facility] [address] [place] [address] Dr. Caitlin Martinez Monocytes/100 WBC (Bld) 8.7 % Normal 1.7-12.0 [facility] Comment on above: Performed By: #### C BC #### [facility] [address] [place] [address] Dr. Caitlin Martinez NEUT # 7.0 103/ul Critically high 1.4-6.5 [facility] Comment on above: Performed By: #### C BC #### [facility] [address] [place] [address] Dr. Caitlin Martinez Neutrophils/100 WBC (Bld) 57.5 % Normal 43.0-75.0 [facility] Comment on above: Performed By: #### C BC #### [facility] [address] [place] [address] Dr. Caitlin Martinez Platelet mean volume (Bld) [Entitic vol] 9.1 fL Critically low 9.5-13.5 [facility] Comment on above: Performed By: #### C BC #### [facility] [address] [place] [address] Dr. Caitlin Martinez PLT 437 103/ul Normal 150-450 [facility] Comment on above: Performed By: #### C BC #### [facility] [address] [place] [address] Dr. Caitlin Martinez RBC 3.67 106/ul Critically low 4.20-5.40 [facility] Comment on above: Performed By: #### C BC #### [facility] [address] [place] [address] Dr. Caitlin Martinez WBC 12.3 103/ul Critically high 4.0-11.0 [facility] Comment on above: Performed By: #### C BC #### [facility] [address] [place] [address] Dr. Caitlin Martinez Covid-19 PCR ([facility])on 01-16 SARS-CoV-2 (COVID-19) RNA JONATAN+probe Ql (Unsp spec) Not detected Normal NOT DETECTED [facility] Comment on above: Result Comment: When diagnostic [...] for this test is supported by the [place] of Health and Human Service's declaration that [...] used). Performed By: #### C VDTBH #### [facility] [address] [place] [address] Dr. Caitlin Martinez PROF 14(COMP METB)on 022 Albumin [Mass/Vol] 2.1 g/dL Critically low 3.4-5.0 [facility] Comment on above: Performed By: #### U RCX #### [facility] [address] [place] [address] Dr. Caitlin Martinez Albumin/Globulin [Mass ratio] 0.5 {ratio} Normal [facility] Comment on above: Performed By: #### U RCX #### [facility] [address] [place] [address] Dr. Caitlin Martinez ALP [Catalytic activity/Vol] 202 U/L Critically high 46-116 [facility] Comment on above: Performed By: #### U RCX #### [facility] [address] [place] [address] Dr. Caitlin Martinez ALT [Catalytic activity/Vol] 20 U/L Normal 14-59 [facility] Comment on above: Performed By: #### U RCX #### [facility] [address] [place] [address] Dr. Caitlin Martinez Anion gap [Moles/Vol] 11.6 mmol/L Normal [facility] Comment on above: Performed By: #### U RCX #### [facility] [address] [place] [address] Dr. Caitlin Martinez AST [Catalytic activity/Vol] 17 U/L Normal 15-37 [facility] Comment on above: Performed By: #### U RCX #### [facility] [address] [place] [address] Dr. Caitlin Martinez Bilirubin [Mass/Vol] 0.3 mg/dL Normal 0.2-1.0 [facility] Comment on above: Performed By: #### U RCX #### [facility] [address] [place] [address] Dr. Caitlin Martinez Calcium [Mass/Vol] 9.2 mg/dL Normal 8.5-10.1 [facility] Comment on above: Performed By: #### U RCX #### [facility] [address] [address] [address] Caitlin Martinez Chloride [Moles/Vol] 104 mmol/L Normal 98-107 [facility] Comment on above: Performed By: #### U RCX #### [facility] [address] [address] [address] Caitlin Martinez CO2 [Moles/Vol] 26.9 mmol/L Normal 21.0-32.0 [facility] Comment on above: Performed By: #### U RCX #### [facility] [address] [address] [address] Caitlin Martinez Creatinine [Mass/Vol] 0.56 mg/dL Normal 0.55-1.02 [facility] Comment on above: Performed By: #### U RCX #### [facility] [address] [place] [address] Dr. Caitlin Martinez EGFR-AF [place] >60 Normal >=60 [facility] Comment on above: Performed By: #### U RCX #### [facility] [address] [address] [address] Caitlin Martinez EGFR-NON AF [place] >60 Normal >=60 [facility] Comment on above: Performed By: #### U RCX #### [facility] [address] [place] [address] Dr. Caitlin Martinez Globulin (S) [Mass/Vol] 4.4 g/dL Normal [facility] Comment on above: Performed By: #### U RCX #### [facility] [address] [address] [address] Caitlin Martinez Glucose [Mass/Vol] 108 mg/dL Critically high 74-106 [facility] Comment on above: Performed By: #### U RCX #### [facility] [address] [address] [address] Caitlin Martinez Potassium [Moles/Vol] 3.5 mmol/L Normal 3.5-5.1 [facility] Comment on above: Performed By: #### U RCX #### [facility] [address] [place] [address] Dr. Caitlin Martinez Protein [Mass/Vol] 6.5 g/dL Normal 6.4-8.2 The [facility] Comment on above: Performed By: #### U RCX #### [facility] [address] [address] [address] Caitlin Martinez Sodium [Moles/Vol] 139 mmol/L Normal 136-145 The [facility] Comment on above: Performed By: #### U RCX #### [facility] [address] [address] [address] aCitlin Martinez Urea nitrogen [Mass/Vol] 7.0 mg/dL Normal 7.0-18.0 [facility] Comment on above: Performed By: #### U RCX #### [facility] [address] [place] [address] Dr. Caitlin Martinez Urea nitrogen/Creatinine [Mass ratio] 12.5 mg/mg Normal [facility] Comment on above: Performed By: #### U RCX #### [facility] [address] [place] [address] Dr. Caitlin Martinez TROPONIN, HIGH SENSITIVITYon 02-10-2022 HSTROP <4.0 Normal 4.0-51.3 [facility] Comment on above: Result Comment: CUT- OFF POINTS HAVE BEEN ESTABLISHED BASED ON THE FOURTH UNIVERSAL DEFINITIONS OF MYOCARDIAL INFARCTION. THE UPPER REFERENCE LIMIT (URL) OF TROPONIN, DEFINED THE 99TH PERCENTILE OF cTnI DISTRIBUTION IN A REFERENCE POPULATION, HAS BEEN CONFIRMED THE DECISION THRESHOLD FOR AK DIAGNOSIS. Performed By: #### U RCX #### [facility] [address] [place] [address] Dr. Caitlin Martinez CBC AUTO DIFFon 02-09-2022 BASO # 0.1 103/ul Normal 0.0-0.1 [facility] Comment on above: Performed By: #### U RCX #### [facility] [address] [place] [address] Dr. Caitlin Martinez Basophils/100 WBC (Bld) 0.6 % Normal 0.2-2.0 [facility] Comment on above: Performed By: #### U RCX #### [facility] [address] [address] [address] Caitlin Martinez EO # 0.3 103/ul Normal 0.0-0.7 [facility] Comment on above: Performed By: #### U RCX #### [facility] [address] [place] [address] Dr. Caitlin Martinez Eosinophils/100 WBC (Bld) 2.3 % Normal 0.9-7.0 [facility] Comment on above: Performed By: #### U RCX #### [facility] [address] [place] [address] Dr. Caitlin Martinez Erythrocyte distribution width (RBC) [Ratio] 14.6 % Normal 11.0-15.0 [facility] Comment on above: Performed By: #### U RCX #### [facility] [address] [place] [address] Dr. Caitlin Martinez Hematocrit (Bld) [Volume fraction] 28.8 % Critically low 36.0-48.0 [facility] Comment on above: Performed By: #### U RCX #### [facility] [address] [place] [address] Dr. Caitlin Martinez Hemoglobin (Bld) [Mass/Vol] 9.0 g/dL Critically low 12.0-16.0 [facility] Comment on above: Performed By: #### U RCX #### [facility] [address] [place] [address] Dr. Caitlin Martinez IG # 0.20 10e3/ul Critically high 0.00-0.03 [facility] Comment on above: Performed By: #### U RCX #### [facility] [address] [place] [address] Dr. Caitlin Martinez IG % 1.5 % Critically high 0.0-0.5 [facility] Comment on above: Performed By: #### U RCX #### [facility] [address] [place] [address] Dr. Caitlin Martinez LYMPH # 3.0 103/ul Normal 1.2-3.8 [facility] Comment on above: Performed By: #### U RCX #### [facility] [address] [address] [address] Caitlin Martinez Lymphocytes/100 WBC (Bld) 22.2 % Normal 20.5-60.0 [facility] Comment on above: Performed By: #### U RCX #### [facility] [address] [address] [address] Caitlin Martinez MANUAL DIFF REQ NO Normal [facility] Comment on above: Performed By: #### U RCX #### [facility] [address] [address] [address] Caitlin Martinez MCH (RBC) [Entitic mass] 26.2 pg Critically low 26.7-34.0 [facility] Comment on above: Performed By: #### U RCX #### [facility] [address] [place] [address] Dr. Caitlin Martinez MCHC (RBC) [Mass/Vol] 31.3 g/dL Normal 29.9-35.2 [facility] Comment on above: Performed By: #### U RCX #### [facility] [address] [place] [address] Dr. Caitlin Martinez MCV (RBC) [Entitic vol] 83.7 fL Normal 81.0-99.0 [facility] Comment on above: Performed By: #### U RCX #### [facility] [address] [place] [address] Dr. Caitlin Martinez MONO # 1.3 103/ul Critically high 0.3-0.8 [facility] Comment on above: Performed By: #### U RCX #### [facility] [address] [place] [address] Dr. Caitlin Martinez Monocytes/100 WBC (Bld) 9.8 % Normal 1.7-12.0 [facility] Comment on above: Performed By: #### U RCX #### [facility] [address] [place] [address] Dr. Caitlin Martinez NEUT # 8.5 103/ul Critically high 1.4-6.5 [facility] Comment on above: Performed By: #### U RCX #### [facility] [address] [address] [address] Caitlin aMrtinez Neutrophils/100 WBC (Bld) 63.6 % Normal 43.0-75.0 [facility] Comment on above: Performed By: #### U RCX #### [facility] [address] [address] [address] Caitlin Martinez Platelet mean volume (Bld) [Entitic vol] 9.1 fL Critically low 9.5-13.5 [facility] Comment on above: Performed By: #### U RCX #### [facility] [address] [address] [address] Caitlin Martinez PLT 355 103/ul Normal 150-450 [facility] Comment on above: Performed By: #### U RCX #### [facility] [address] [place] [address] Dr. Caitlin Martinez RBC 3.44 106/ul Critically low 4.20-5.40 [facility] Comment on above: Performed By: #### U RCX #### [facility] [address] [place] [address] Dr. Caitlin Martinez WBC 13.3 103/ul Critically high 4.0-11.0 [facility] Comment on above: Performed By: #### U RCX #### [facility] [address] [place] [address] Dr. Caitlin Martinez SCREENon 02-09-2022 SCREEN Negative Normal [facility] Comment on above: Performed By: #### F ETSCRN #### [facility] [address] [place] [address] Dr. Caitlin Martinez CBC AUTO DIFFon 02-08-2022 BASO # 0.1 103/ul Normal 0.0-0.1 [facility] Comment on above: Performed By: #### U RCX #### [facility] [address] [place] [address] Dr. Caitlin Martinez Basophils/100 WBC (Bld) 0.4 % Normal 0.2-2.0 [facility] Comment on above: Performed By: #### U RCX #### [facility] [address] [address] [address] Caitlin Martinez EO # 0.3 103/ul Normal 0.0-0.7 [facility] Comment on above: Performed By: #### U RCX #### [facility] [address] [address] [address] Caitlin Martinez Eosinophils/100 WBC (Bld) 2.6 % Normal 0.9-7.0 [facility] Comment on above: Performed By: #### U RCX #### [facility] [address] [place] [address] Dr. Caitlin Martinez Erythrocyte distribution width (RBC) [Ratio] 14.7 % Normal 11.0-15.0 [facility] Comment on above: Performed By: #### U RCX #### [facility] [address] [place] [address] Dr. Caitlin Martinez Hematocrit (Bld) [Volume fraction] 30.6 % Critically low 36.0-48.0 [facility] Comment on above: Performed By: #### U RCX #### [facility] [address] [place] [address] Dr. Caitlin Martinez Hemoglobin (Bld) [Mass/Vol] 9.7 g/dL Critically low 12.0-16.0 [facility] Comment on above: Performed By: #### U RCX #### [facility] [address] [place] [address] Dr. Caitlin Martinez IG # 0.15 10e3/ul Critically high 0.00-0.03 [facility] Comment on above: Performed By: #### U RCX #### [facility] [address] [place] [address] Dr. Caitlin Martinez IG % 1.3 % Critically high 0.0-0.5 [facility] Comment on above: Performed By: #### U RCX #### [facility] [address] [place] [address] Dr. Caitlin Martinez LYMPH # 2.8 103/ul Normal 1.2-3.8 [facility] Comment on above: Performed By: #### U RCX #### [facility] [address] [place] [address] Dr. Caitlin Martinez Lymphocytes/100 WBC (Bld) 24.8 % Normal 20.5-60.0 [facility] Comment on above: Performed By: #### U RCX #### [facility] [address] [place] [address] Dr. Caitlin Martinez MANUAL DIFF REQ NO Normal [facility] Comment on above: Performed By: #### U RCX #### [facility] [address] [place] [address] Dr. Caitlin Martinez MCH (RBC) [Entitic mass] 26.6 pg Critically low 26.7-34.0 [facility] Comment on above: Performed By: #### U RCX #### [facility] [address] [place] [address] Dr. Caitlin Martinez MCHC (RBC) [Mass/Vol] 31.7 g/dL Normal 29.9-35.2 [facility] Comment on above: Performed By: #### U RCX #### [facility] [address] [place] [address] Dr. Caitlin Martinez MCV (RBC) [Entitic vol] 83.8 fL Normal 81.0-99.0 [facility] Comment on above: Performed By: #### U RCX #### [facility] [address] [place] [address] Dr. Caitlin Martinez MONO # 1.0 103/ul Critically high 0.3-0.8 [facility] Comment on above: Performed By: #### U RCX #### [facility] [address] [place] [address] Dr. Caitlin Martinez Monocytes/100 WBC (Bld) 8.7 % Normal 1.7-12.0 [facility] Comment on above: Performed By: #### U RCX #### [facility] [address] [place] [address] Dr. Caitlin Martinez NEUT # 7.0 103/ul Critically high 1.4-6.5 [facility] Comment on above: Performed By: #### U RCX #### [facility] [address] [address] [address] Caitlin Martinez Neutrophils/100 WBC (Bld) 62.2 % Normal 43.0-75.0 [facility] Comment on above: Performed By: #### U RCX #### [facility] [address] [address] [address] Caitlin Martinez Platelet mean volume (Bld) [Entitic vol] 9.0 fL Critically low 9.5-13.5 [facility] Comment on above: Performed By: #### U RCX #### [facility] [address] [address] [address] Caitlin Martinez PLT 373 103/ul Normal 150-450 [facility] Comment on above: Performed By: #### U RCX #### [facility] [address] [place] [address] Dr. Caitlin Martinez RBC 3.65 106/ul Critically low 4.20-5.40 [facility] Comment on above: Performed By: #### U RCX #### [facility] [address] [address] [address] Caitlin Martinez WBC 11.3 103/ul Critically high 4.0-11.0 [facility] Comment on above: Performed By: #### U RCX #### [facility] [address] [place] [address] Dr. Caitlin Martinez [facility]on [facility] SARS-CoV-2 (COVID-19) RNA JONATAN+probe Ql (Unsp spec) Not detected Normal NOT DETECTED [facility] Comment on above: Result Comment: When diagnostic [...] for this test is supported by the [employer] of Health and Human Service's declaration that [...] used). Performed By: #### C BC #### [facility] [address] [place] [address] Dr. Caitlin Martinez DIRECT COOMBSon 02-08-2022 DIRECT EDWINA Negative Normal [facility] Comment on above: Performed By: #### D IRCMB, ABID #### [facility] [address] [place] [address] Dr. Caitlin Martinez DRUG SCREEN RAPID (URINE)on 02-08-2022 AMP Negative Normal NEGATIVE [facility] Comment on above: Performed By: #### C BC #### [facility] [address] [place] [address] Dr. Caitlin Matrinez BAR Negative Normal NEGATIVE [facility] Comment on above: Performed By: #### C BC #### [facility] [address] [place] [address] Dr. Caitlin Martinez BUP Negative Normal NEGATIVE [facility] Comment on above: Performed By: #### C BC #### [facility] [address] [place] [address] Dr. Caitlin Martinez BZO Negative Normal NEGATIVE [facility] Comment on above: Performed By: #### C BC #### [facility] [address] [place] [address] Dr. Caitlin Martinez JEANNA Negative Normal NEGATIVE [facility] Comment on above: Performed By: #### C BC #### [facility] [address] [place] [address] Dr. Caitlin Martinez CUT-OFFS SEE BELOW Normal [facility] [...] ng/mL Performed By: #### C BC #### [facility] [address] [place] [address] Dr. Caitlin Martinez DRUG CUT HEADER DRUG CLASS TEST SYSTEM CUT-OFF CONCENTRATIONS ARE FOLLOWS: Normal [facility] Comment on above: Performed By: #### C BC #### [facility] [address] [place] [address] Dr. Caitlin Martinez mAMP Negative Normal NEGATIVE [facility] Comment on above: Performed By: #### C BC #### [facility] [address] [place] [address] Dr. Caitlin Martinez MTD Negative Normal NEGATIVE [facility] Comment on above: Performed By: #### C BC #### [facility] [address] [place] [address] Dr. Caitlin Martinez OPI Negative Normal NEGATIVE [facility] [facility] Comment on above: Performed By: #### C BC #### [facility] [address] [place] [address] Dr. Caitlin Martinez OXY Negative Normal NEGATIVE [facility] Comment on above: Performed By: #### C BC #### [facility] [address] [place] [address] Dr. Caitlin Martinez PCP Negative Normal NEGATIVE [facility] Comment on above: Performed By: #### C BC #### [facility] [address] [place] [address] Dr. Caitlin Martinez PPX Negative Normal NEGATIVE [facility] Comment on above: Performed By: #### C BC #### [facility] [address] [place] [address] Dr. Caitlin Martinez TCA Negative Normal NEGATIVE [facility] Comment on above: Performed By: #### C BC #### [facility] [address] [place] [address] Dr. Caitlin Martinez THC Negative Normal NEGATIVE [facility] Comment on above: Performed By: #### C BC #### [facility] [address] [place] [address] Dr. Caitlin Martinez TYPE AND SCREENon 02-08-2022 TYPE AND SCREEN Negative Normal [facility] Comment on above: Performed By: #### I HORACIO #### [facility] [address] [place] [address] Dr. Caitlin Martinez US PREG BIOPHY W [...] DAVID BLACKMON Date: 2022-02-05 16:28 Normal [facility] AMNISUREon 01-25-2022 AMNISURE Negative Normal NEGATIVE [facility] Comment on above: Performed By: #### A MNI #### [facility] [address] [place] [address] Dr. Caitlin Martinez CULTURE URINEon 01-25-2022 CULTURE URINE Culture Observations : No growth Normal [facility] Comment on above: Performed By: #### U RCX #### [facility] [address] [place] [address] Dr. Caitlin Martinez UA (CLEAN/CATCH) DIGITAL PRODUCER/MICRO I F IND.on 01-25-2022 Bilirubin Ql (U) Negative Normal NEGATIVE [facility] Comment on above: Performed By: #### C VDTBH #### [facility] [address] [place] [address] Dr. Caitlin Martinez Clarity (U) SL CLOUDY Abnormal CLEAR [facility] Comment on above: Performed By: #### C VDTBH #### [facility] [address] [address] [address] Caitlin Martinez Color (U) LT. YELLOW Normal YELLOW [facility] Comment on above: Performed By: #### C VDTBH #### [facility] [address] [address] [address] Caitlin Martinez Glucose Ql (U) Negative Normal NEGATIVE [facility] Comment on above: Performed By: #### C VDTBH #### [facility] [address] [address] [address] Caitlin Martinez Hemoglobin Ql (U) TRACE-INTACT Abnormal NEGATIVE [facility] Comment on above: Performed By: #### C VDTBH #### [facility] [address] [place] [address] Dr. Caitlin Martinez Ketones Ql (U) Negative Normal NEGATIVE [facility] Comment on above: Performed By: #### C VDTBH #### [facility] [address] [place] [address] Dr. Caitlin Martinez LEUKOCYTES TRACE Abnormal NEGATIVE [facility] Comment on above: Performed By: #### C VDTBH #### [facility] [address] [place] [address] Dr. Caitlin Martinez Nitrite Ql (U) Negative Normal NEGATIVE [facility] Comment on above: Performed By: #### C VDTBH #### [facility] [address] [place] [address] Dr. Caitlin Martinez pH (U) 6.5 [pH] Normal 5-9 [facility] Comment on above: Performed By: #### C VDTBH #### [facility] [address] [place] [address] Dr. Caitlin Martinez SPEC GRAVITY 1.020 Normal 1.005-<=1.025 [facility] Comment on above: Performed By: #### C VDTBH #### [facility] [address] [place] [address] Dr. Caitlin Martinez UA PROTEIN Negative Normal NEGATIVE/ TRACE [facility] Comment on above: Performed By: #### C VDTBH #### [facility] [address] [place] [address] Dr. Caitlin Martinez UR MICRO IND INDICATED Normal [facility] Comment on above: Performed By: #### C VDTBH #### [facility] [address] [place] [address] Dr. Caitlin Martinez Urobilinogen Qn (U) 0.2 {Barbara'U}/dL Normal 0.2 - 1. 0 [facility] Comment on above: Performed By: #### C VDTBH #### [facility] [address] [place] [address] Dr. Caitlin Martinez URINE MICROSCOPIC ONLYon BACTERIA MODERATE Abnormal NONE SEEN [facility] Comment on above: Performed By: #### C VDTBH #### [facility] [address] [place] [address] Dr. Caitlin Martinez Bacteria identified Cx Nom (U) INDICATED Normal [facility] Comment on above: Performed By: #### C VDTBH #### [facility] [address] [place] [address] Dr. Caitlin Martinez CAST NONE SEEN Normal NONE SEEN [facility] Comment on above: Performed By: #### C VDTBH #### [facility] [address] [place] [address] Dr. Caitlin Martinez Crystals LM Nom (Urine sed) NONE SEEN Normal NONE SEEN [facility] Comment on above: Performed By: #### C VDTBH #### [facility] [address] [place] [address] Dr. Caitlin Martinez Epithelial cells LM Ql (Urine sed) FEW Abnormal NONE SEEN /RARE [facility] Comment on above: Performed By: #### C VDTBH #### [facility] [address] [place] [address] Dr. Caitlin Martinez MUCOUS TRACE Abnormal NONE SEEN [facility] Comment on above: Performed By: #### C VDTBH #### [facility] [address] [place] [address] Dr. Caitlin Martinez RBC 2-5 Abnormal 0-2 [facility] Comment on above: Performed By: #### C VDTBH #### [facility] [address] [place] [address] Dr. Caitlin Martinez WBC 0-2 Abnormal NONE SEEN [facility] Comment on above: Performed By: #### C VDTBH #### [facility] [address] [place] [address] Dr. Caitlin Martinez AMYLASEon 01-16-2022 Amylase [Catalytic activity/Vol] 49 U/L Normal 25-115 [facility] Comment on above: Performed By: #### C VDTBH #### [facility] [address] [place] [address] Dr. Caitlin Martinez BUNon 01-16-2022 Urea nitrogen [Mass/Vol] 3.0 mg/dL Critically low 7.0-18.0 [facility] Comment on above: Performed By: #### C BC #### [facility] [address] [place] [address] Dr. Caitlin Martinez CBC AUTO DIFFon 01-16-2022 BASO # 0.1 103/ul Normal 0.0-0.1 [facility] Comment on above: Performed By: #### U RCX #### [facility] [address] [place] [address] Dr. Caitlin Martinez Basophils/100 WBC (Bld) 0.6 % Normal 0.2-2.0 [facility] Comment on above: Performed By: #### U RCX #### [facility] [address] [place] [address] Dr. Caitlin Martinez EO # 0.3 103/ul Normal 0.0-0.7 [facility] Comment on above: Performed By: #### U RCX #### [facility] [address] [place] [address] Dr. Caitlin Martinez Eosinophils/100 WBC (Bld) 2.6 % Normal 0.9-7.0 [facility] Comment on above: Performed By: #### U RCX #### [facility] [address] [place] [address] Dr. Caitlin Martinez Erythrocyte distribution width (RBC) [Ratio] 14.4 % Normal 11.0-15.0 [facility] Comment on above: Performed By: #### U RCX #### [facility] [address] [address] [address] Caitlin Martinez Hematocrit (Bld) [Volume fraction] 28.4 % Critically low 36.0-48.0 [facility] Comment on above: Performed By: #### U RCX #### [facility] [address] [place] [address] Dr. Caitlin Martinez Hemoglobin (Bld) [Mass/Vol] 9.0 g/dL Critically low 12.0-16.0 [facility] Comment on above: Performed By: #### U RCX #### [facility] [address] [place] [address] Dr. Caitlin Martinez IG # 0.11 10e3/ul Critically high 0.00-0.03 [facility] Comment on above: Performed By: #### U RCX #### [facility] [address] [place] [address] Dr. Caitlin Martinez IG % 1.1 % Critically high 0.0-0.5 [facility] Comment on above: Performed By: #### U RCX #### [facility] [address] [place] [address] Dr. Caitlin Martinez LYMPH # 2.2 103/ul Normal 1.2-3.8 [facility] Comment on above: Performed By: #### U RCX #### [facility] [address] [place] [address] Dr. Caitlin Martinez Lymphocytes/100 WBC (Bld) 21.0 % Normal 20.5-60.0 [facility] Comment on above: Performed By: #### U RCX #### [facility] [address] [place] [address] Dr. Caitlin Martinez MANUAL DIFF REQ NO Normal [facility] Comment on above: Performed By: #### U RCX #### [facility] [address] [place] [address] Dr. Caitlin Martinez MCH (RBC) [Entitic mass] 28.2 pg Normal 26.7-34.0 [facility] Comment on above: Performed By: #### U RCX #### [facility] [address] [address] [address] Caitlin Martinez MCHC (RBC) [Mass/Vol] 31.7 g/dL Normal 29.9-35.2 [facility] Comment on above: Performed By: #### U RCX #### [facility] [address] [place] [address] Dr. Caitlin Martinez MCV (RBC) [Entitic vol] 89.0 fL Normal 81.0-99.0 [facility] Comment on above: Performed By: #### U RCX #### [facility] [address] [place] [address] Dr. Caitlin Martinez MONO # 0.9 103/ul Critically high 0.3-0.8 [facility] Comment on above: Performed By: #### U RCX #### [facility] [address] [place] [address] Dr. Caitlin Martinez Monocytes/100 WBC (Bld) 8.9 % Normal 1.7-12.0 [facility] Comment on above: Performed By: #### U RCX #### [facility] [address] [place] [address] Dr. Caitlin Martinez NEUT # 6.8 103/ul Critically high 1.4-6.5 [facility] Comment on above: Performed By: #### U RCX #### [facility] [address] [place] [address] Dr. Caitlin Martinez Neutrophils/100 WBC (Bld) 65.8 % Normal 43.0-75.0 [facility] Comment on above: Performed By: #### U RCX #### [facility] [address] [place] [address] Dr. Caitlin Martinez Platelet mean volume (Bld) [Entitic vol] 8.6 fL Critically low 9.5-13.5 [facility] Comment on above: Performed By: #### U RCX #### [facility] [address] [place] [address] Dr. Caitlin Martinez PLT 322 103/ul Normal 150-450 [facility] Comment on above: Performed By: #### U RCX #### [facility] [address] [address] [address] Caitlin Martinez RBC 3.19 106/ul Critically low 4.20-5.40 [facility] Comment on above: Performed By: #### U RCX #### [facility] [address] [address] [address] Caitlin Martinez WBC 10.3 103/ul Normal 4.0-11.0 [facility] Comment on above: Performed By: #### U RCX #### [facility] [address] [address] [address] Caitlin Martinez CREATININEon 01-16-2022 Creatinine [Mass/Vol] 0.55 mg/dL Normal 0.55-1.02 [facility] Comment on above: Performed By: #### C VDTBH #### [facility] [address] [place] [address] Dr. Caitlin Martinez EGFR-AF [place] >60 Normal >=60 [facility] Comment on above: Performed By: #### C VDTBH #### [facility] [address] [place] [address] Dr. Caitlin Martinez EGFR-NON AF [place] >60 Normal >=60 [facility] Comment on above: Performed By: #### C VDTBH #### [facility] [address] [address] [address] Caitlin Martinez ELECTROLYTESon 01-16-2022 Anion gap [Moles/Vol] 13.6 mmol/L Normal [facility] Comment on above: Performed By: #### C VDTBH #### [facility] [address] [address] [address] Caitlin Martinez Chloride [Moles/Vol] 106 mmol/L Normal 98-107 [facility] Comment on above: Performed By: #### C VDTBH #### [facility] [address] [place] [address] Dr. Caitlin Martinez CO2 [Moles/Vol] 22.9 mmol/L Normal 21.0-32.0 [facility] Comment on above: Performed By: #### C VDTBH #### [facility] [address] [place] [address] Dr. Caitlin Martinez Potassium [Moles/Vol] 3.5 mmol/L Normal 3.5-5.1 [facility] Comment on above: Performed By: #### C VDTBH #### [facility] [address] [place] [address] Dr. Caitlin Martinez Sodium [Moles/Vol] 139 mmol/L Normal 136-145 [facility] Comment on above: Performed By: #### C VDTBH #### [facility] [address] [place] [address] Dr. Caitlin Martinez LIPASEon 01-16-2022 Lipase [Catalytic activity/Vol] 66.0 U/L Critically low 73.0-393.0 [facility] Comment on above: Performed By: #### C BC #### [facility] [address] [place] [address] Dr. Caitlin Martinez SGOTon 01-16-2022 AST [Catalytic activity/Vol] 12 U/L Critically low 15-37 [facility] Comment on above: Performed By: #### C VDTBH #### [facility] [address] [place] [address] Dr. Caitlin Martinez SGPTon 01-16-2022 ALT [Catalytic activity/Vol] 9 U/L Critically low 14-59 [facility] Comment on above: Performed By: #### C VDTBH #### [facility] [address] [place] [address] Dr. Caitlin Martinez CBC AUTO DIFFon 01-15-2022 BASO # 0.1 103/ul Normal 0.0-0.1 [facility] Comment on above: Performed By: #### C VDTBH #### [facility] [address] [place] [address] Dr. Caitlin Martinez Basophils/100 WBC (Bld) 0.4 % Normal 0.2-2.0 [facility] Comment on above: Performed By: #### C VDTBH #### [facility] [address] [address] [address] Caitlin Martinez EO # 0.2 103/ul Normal 0.0-0.7 [facility] Comment on above: Performed By: #### C VDTBH #### [facility] [address] [address] [address] Caitlin Martinez Eosinophils/100 WBC (Bld) 1.4 % Normal 0.9-7.0 [facility] Comment on above: Performed By: #### C VDTBH #### [facility] [address] [place] [address] Dr. Caitlin Martinez Erythrocyte distribution width (RBC) [Ratio] 14.1 % Normal 11.0-15.0 [facility] Comment on above: Performed By: #### C VDTBH #### [facility] [address] [place] [address] Dr. Caitlin Martinez Hematocrit (Bld) [Volume fraction] 28.4 % Critically low 36.0-48.0 [facility] Comment on above: Performed By: #### C VDTBH #### [facility] [address] [place] [address] Dr. Caitlin Martinez Hemoglobin (Bld) [Mass/Vol] 9.0 g/dL Critically low 12.0-16.0 [facility] Comment on above: Performed By: #### C VDTBH #### [facility] [address] [place] [address] Dr. Caitlin Martinez IG # 0.18 10e3/ul Critically high 0.00-0.03 [facility] Comment on above: Performed By: #### C VDTBH #### [facility] [address] [place] [address] Dr. Caitlin Martinez IG % 1.3 % Critically high 0.0-0.5 [facility] Comment on above: Performed By: #### C VDTBH #### [facility] [address] [place] [address] Dr. Caitlin Martinez LYMPH # 2.4 103/ul Normal 1.2-3.8 [facility] Comment on above: Performed By: #### C VDTBH #### [facility] [address] [address] [address] Caitlin Martinez Lymphocytes/100 WBC (Bld) 16.8 % Critically low 20.5-60.0 [facility] Comment on above: Performed By: #### C VDTBH #### [facility] [address] [place] [address] Dr. Caitlin Martinez MANUAL DIFF REQ NO Normal [facility] Comment on above: Performed By: #### C VDTBH #### [facility] [address] [place] [address] Dr. Caitlin Martinez MCH (RBC) [Entitic mass] 27.9 pg Normal 26.7-34.0 [facility] Comment on above: Performed By: #### C VDTBH #### [facility] [address] [place] [address] Dr. Caitlin Martinez MCHC (RBC) [Mass/Vol] 31.7 g/dL Normal 29.9-35.2 [facility] Comment on above: Performed By: #### C VDTBH #### [facility] [address] [place] [address] Dr. Caitlin Martinez MCV (RBC) [Entitic vol] 87.9 fL Normal 81.0-99.0 [facility] Comment on above: Performed By: #### C VDTBH #### [facility] [address] [place] [address] Dr. Caitlin Martinez MONO # 0.9 103/ul Critically high 0.3-0.8 [facility] Comment on above: Performed By: #### C VDTBH #### [facility] [address] [place] [address] Dr. Caitlin Martinez Monocytes/100 WBC (Bld) 6.7 % Normal 1.7-12.0 [facility] Comment on above: Performed By: #### C VDTBH #### [facility] [address] [place] [address] Dr. Caitlin Martinez NEUT # 10.3 103/ul Critically high 1.4-6.5 [facility] Comment on above: Performed By: #### C VDTBH #### [facility] [address] [address] [address] Caitlin Martinez Neutrophils/100 WBC (Bld) 73.4 % Normal 43.0-75.0 [facility] Comment on above: Performed By: #### C VDTBH #### [facility] [address] [address] [address] Caitlin Martinez Platelet mean volume (Bld) [Entitic vol] 9.0 fL Critically low 9.5-13.5 [facility] Comment on above: Performed By: #### C VDTBH #### [facility] [address] [place] [address] Dr. Caitlin Martinez PLT 318 103/ul Normal 150-450 [facility] Comment on above: Performed By: #### C VDTBH #### [facility] [address] [place] [address] Dr. Caitlin Martinez RBC 3.23 106/ul Critically low 4.20-5.40 [facility] Comment on above: Performed By: #### C VDTBH #### [facility] [address] [place] [address] Dr. Caitlin Martinez WBC 14.0 103/ul Critically high 4.0-11.0 [facility] Comment on above: Performed By: #### C VDTBH #### [facility] [address] [place] [address] ABD/PELVIS WO CONon [...] DAVID BLACKMON Date: 2022-01-15 16:31 Normal [facility] CULTURE URINEon 01-15-2022 CULTURE URINE Culture Observations : LIGHT GROWTH OF MIXED GENITAL COSME. NO POTENTIAL PATHOGENS SEEN. Normal [facility] Comment on above: Performed By: #### U RCX #### [facility] [address] [place] [address] Dr. Caitlin Martinez UA (CLEAN/CATCH) DIGITAL PRODUCER/MICRO I F IND.on 01-15-2022 Bilirubin Ql (U) Negative Normal NEGATIVE [facility] Comment on above: Performed By: #### C BC #### [facility] [address] [place] [address] Dr. Caitlin Martinez Clarity (U) CLEAR Normal CLEAR [facility] Comment on above: Performed By: #### C BC #### [facility] [address] [place] [address] Dr. Caitlin Martinez Color (U) LT. YELLOW Normal YELLOW [facility] Comment on above: Performed By: #### C BC #### [facility] [address] [place] [address] Dr. Caitlin Martinez Glucose Ql (U) Negative Normal NEGATIVE [facility] Comment on above: Performed By: #### C BC #### [facility] [address] [place] [address] Dr. Caitlin Martinez Hemoglobin Ql (U) Negative Normal NEGATIVE [facility] Comment on above: Performed By: #### C BC #### [facility] [address] [place] [address] Dr. Caitlin Martinez Ketones Ql (U) Negative Normal NEGATIVE [facility] Comment on above: Performed By: #### C BC #### [facility] [address] [place] [address] Dr. Caitlin Martinez LEUKOCYTES TRACE Abnormal NEGATIVE [facility] Comment on above: Performed By: #### C BC #### [facility] [address] [place] [address] Dr. Caitlin Martinez Nitrite Ql (U) Negative Normal NEGATIVE [facility] Comment on above: Performed By: #### C BC #### [facility] [address] [place] [address] Dr. Caitlin Martinez pH (U) 7.0 [pH] Normal 5-9 [facility] Comment on above: Performed By: #### C BC #### [facility] [address] [place] [address] Dr. Caitlin Martinez SPEC GRAVITY 1.010 Normal 1.005-<=1.025 [facility] Comment on above: Performed By: #### C BC #### [facility] [address] [place] [address] Dr. Caitlin Martinez UA PROTEIN Negative Normal NEGATIVE/ TRACE [facility] Comment on above: Performed By: #### C BC #### [facility] [address] [place] [address] Dr. Caitlin Martinez UR MICRO IND INDICATED Normal [facility] Comment on above: Performed By: #### C BC #### [facility] [address] [place] [address] Dr. Caitlin Martinez Urobilinogen Qn (U) 0.2 {Barbara'U}/dL Normal 0.2 - 1. 0 [facility] Comment on above: Performed By: #### C BC #### [facility] [address] [place] [address] Dr. Caitlin Martinez URINE MICROSCOPIC ONLYon BACTERIA MODERATE Abnormal NONE SEEN [facility] Comment on above: Performed By: #### C BC #### [facility] [address] [place] [address] Dr. Caitlin Martinez Bacteria identified Cx Nom (U) INDICATED Normal [facility] Comment on above: Performed By: #### C BC #### [facility] [address] [place] [address] Dr. Caitlin Martinez CAST NONE SEEN Normal NONE SEEN [facility] Comment on above: Performed By: #### C BC #### [facility] [address] [place] [address] Dr. Caitlin Martinez Crystals LM Nom (Urine sed) NONE SEEN Normal NONE SEEN [facility] Comment on above: Performed By: #### C BC #### [facility] [address] [place] [address] Dr. Caitlin Martinez Epithelial cells LM Ql (Urine sed) MODERATE Abnormal NONE SEEN /RARE [facility] Comment on above: Performed By: #### C BC #### [facility] [address] [place] [address] Dr. Caitlin Martinez MUCOUS NONE SEEN Normal NONE SEEN [facility] Comment on above: Performed By: #### C BC #### [facility] [address] [place] [address] Dr. Caitlin Martinez RBC NONE SEEN Abnormal 0-2 [facility] Comment on above: Performed By: #### C BC #### [facility] [address] [place] [address] Dr. Caitlin Martinez WBC 2-5 Abnormal NONE SEEN [facility] Comment on above: Performed By: #### C BC #### [facility] [address] [place] [address] Dr. Caitlin Martinez US APPENDIXon 01-15-2022 US [...] DAVID BLACKMON Date: 2022-01-15 14:14 Normal The [facility] US PREG GROWTHon 01-15-2022 US PREG GROWTH [...] DAVID BLACKMON Date: 2022-01-15 10:59 Normal The [facility] US PREG PLACENTAon US PREG PLACENTA EXAMINATION: [...] DAVID BLACKMON Date: 2022-01-15 10:57 Normal The [facility] UA (CLEAN/CATCH) DIGITAL PRODUCER/MICRO I F IND.on 12-29-2021 Bilirubin Ql (U) Negative Normal NEGATIVE The [facility] Comment on above: Performed By: #### C BC #### [facility] [address] [place] [address] Dr. Caitlin Martinez Clarity (U) CLEAR Normal CLEAR [facility] Comment on above: Performed By: #### C BC #### [facility] [address] [place] [address] Dr. Caitlin Martinez Color (U) LT. YELLOW Normal YELLOW [facility] Comment on above: Performed By: #### C BC #### [facility] [address] [place] [address] Dr. Caitlin Martinez Glucose Ql (U) Negative Normal NEGATIVE [facility] Comment on above: Performed By: #### C BC #### [facility] [address] [place] [address] Dr. Caitlin Martinez Hemoglobin Ql (U) Negative Normal NEGATIVE [facility] Comment on above: Performed By: #### C BC #### [facility] [address] [place] [address] Dr. Caitlin Martinez Ketones Ql (U) Negative Normal NEGATIVE [facility] Comment on above: Performed By: #### C BC #### [facility] [address] [place] [address] Dr. Caitlin Martinez LEUKOCYTES Negative Normal NEGATIVE [facility] Comment on above: Performed By: #### C BC #### [facility] [address] [place] [address] Dr. Caitlin Martinez Nitrite Ql (U) Negative Normal NEGATIVE [facility] Comment on above: Performed By: #### C BC #### [facility] [address] [place] [address] Dr. Caitlin Martinez pH (U) 6.5 [pH] Normal 5-9 [facility] Comment on above: Performed By: #### C BC #### [facility] [address] [place] [address] Dr. Caitlin Martinez SPEC GRAVITY 1.020 Normal 1.005-<=1.025 [facility] Comment on above: Performed By: #### C BC #### [facility] [address] [place] [address] Dr. Caitlin Martinez UA PROTEIN Negative Normal NEGATIVE/ TRACE [facility] Comment on above: Performed By: #### C BC #### [facility] [address] [place] [address] Dr. Caitlin Martinez UR MICRO IND NOT INDICATED Normal [facility] Comment on above: Performed By: #### C BC #### [facility] [address] [place] [address] Dr. Caitlin Martinez Urobilinogen Qn (U) 1.0 {Barbara'U}/dL Normal 0.2 - 1. 0 [facility] Comment on above: Performed By: #### C BC #### [facility] [address] [place] [address] Dr. Caitlin Martinez US PREG CERVICAL LENGTHon [...] KIRK OATES Date: 2021-12-29 15:53 Normal The [facility] UA (CLEAN/CATCH) DIGITAL PRODUCER/MICRO I F IND.on 12-18-2021 Bilirubin Ql (U) Negative Normal NEGATIVE [facility] Comment on above: Performed By: #### C BC #### [facility] [address] [place] [address] Dr. Caitlin Martinez Clarity (U) CLEAR Normal CLEAR [facility] Comment on above: Performed By: #### C BC #### [facility] [address] [place] [address] Dr. Caitlin Martinez Color (U) YELLOW Normal YELLOW [facility] Comment on above: Performed By: #### C BC #### [facility] [address] [place] [address] Dr. Caitlin Martinez Glucose Ql (U) Negative Normal NEGATIVE [facility] Comment on above: Performed By: #### C BC #### [facility] [address] [place] [address] Dr. Caitlin Martinez Hemoglobin Ql (U) Negative Normal NEGATIVE [facility] Comment on above: Performed By: #### C BC #### [facility] [address] [place] [address] Dr. Caitlin Martinez Ketones Ql (U) TRACE Abnormal NEGATIVE [facility] Comment on above: Performed By: #### C BC #### [facility] [address] [place] [address] Dr. Caitlin Martinez LEUKOCYTES Negative Normal NEGATIVE [facility] Comment on above: Performed By: #### C BC #### [facility] [address] [place] [address] Dr. Caitlin Martinez Nitrite Ql (U) Negative Normal NEGATIVE [facility] Comment on above: Performed By: #### C BC #### [facility] [address] [place] [address] Dr. Caitlin Martinez pH (U) 6.0 [pH] Normal 5-9 [facility] Comment on above: Performed By: #### C BC #### [facility] [address] [place] [address] Dr. Caitlin Martinez SPEC GRAVITY 1.025 Normal 1.005-<=1.025 [facility] Comment on above: Performed By: #### C BC #### [facility] [address] [place] [address] Dr. Caitlin Martinez UA PROTEIN Negative Normal NEGATIVE/ TRACE [facility] Comment on above: Performed By: #### C BC #### [facility] [address] [place] [address] Dr. Caitlin Martinez UR MICRO IND NOT INDICATED Normal [facility] Comment on above: Performed By: #### C BC #### [facility] [address] [place] [address] Dr. Caitlin Martinez Urobilinogen Qn (U) 4 {Barbara'U}/dL Abnormal 0.2 - 1.0 [facility] Comment on above: Performed By: #### C BC #### [facility] [address] [place] [address] Dr. Caitlin Martinez RHOGAMon 11-28-2021 RHOGAM Status Information Issued Quantity 1 Product ID Rh Immune Globulin Lot Number [id number] Issue Date/Time [id number] Normal [facility] Comment on above: Performed By: #### I HORACIO #### [facility] [address] [place] [address] Dr. Caitlin Martinez TYPE AND SCREENon 11-27-2021 TYPE AND SCREEN Negative Normal [facility] Comment on above: Performed By: #### T NS #### [facility] [address] [place] [address] Dr. Caitlin Martinez CULTURE URINEon 11-23-2021 CULTURE URINE Culture Observations : No growth Normal [facility] Comment on above: Performed By: #### I HORACIO #### [facility] [address] [place] [address] Dr. Caitlin Martinez UA (CLEAN/CATCH) DIGITAL PRODUCER/MICRO I F IND.on 11-23-2021 Bilirubin Ql (U) Negative Normal NEGATIVE [facility] Comment on above: Performed By: #### U RCX #### [facility] [address] [place] [address] Dr. Caitlin Martinez Clarity (U) CLEAR Normal CLEAR [facility] Comment on above: Performed By: #### U RCX #### [facility] [address] [place] [address] Dr. Caitlin Martinez Color (U) LT. YELLOW Normal YELLOW [facility] Comment on above: Performed By: #### U RCX #### [facility] [address] [place] [address] Dr. Caitlin Martinez Glucose Ql (U) Negative Normal NEGATIVE [facility] Comment on above: Performed By: #### U RCX #### [facility] [address] [place] [address] Dr. Caitlin Martinez Hemoglobin Ql (U) Negative Normal NEGATIVE [facility] Comment on above: Performed By: #### U RCX #### [facility] [address] [place] [address] Dr. Caitlin Martinez Ketones Ql (U) Negative Normal NEGATIVE [facility] Comment on above: Performed By: #### U RCX #### [facility] [address] [place] [address] Dr. Caitlin Martinez LEUKOCYTES SMALL Abnormal NEGATIVE [facility] Comment on above: Performed By: #### U RCX #### [facility] [address] [place] [address] Dr. Caitlin Martinez Nitrite Ql (U) Negative Normal NEGATIVE [facility] Comment on above: Performed By: #### U RCX #### [facility] [address] [place] [address] Dr. Caitlin Martinez pH (U) 6.5 [pH] Normal 5-9 [facility] Comment on above: Performed By: #### U RCX #### [facility] [address] [place] [address] Dr. Caitlin Martinez SPEC GRAVITY 1.010 Normal 1.005-<=1.025 [facility] Comment on above: Performed By: #### U RCX #### [facility] [address] [place] [address] Dr. Caitlin Martinez UA PROTEIN Negative Normal NEGATIVE/ TRACE [facility] Comment on above: Performed By: #### U RCX #### [facility] [address] [place] [address] Dr. Caitlin Martinez UR MICRO IND INDICATED Normal [facility] Comment on above: Performed By: #### U RCX #### [facility] [address] [place] [address] Dr. Caitlin Martinez Urobilinogen Qn (U) 0.2 {Barbara'U}/dL Normal 0.2 - 1. 0 [facility] Comment on above: Performed By: #### U RCX #### [facility] [address] [place] [address] Dr. Caitlin Martinez URINE MICROSCOPIC ONLYon BACTERIA TRACE Abnormal NONE SEEN [facility] Comment on above: Performed By: #### U RCX #### [facility] [address] [place] [address] Dr. Caitlin Martinez Bacteria identified Cx Nom (U) INDICATED Normal [facility] Comment on above: Performed By: #### U RCX #### [facility] [address] [place] [address] Dr. Caitlin Martinez CAST SEEN Abnormal NONE SEEN [facility] Comment on above: Performed By: #### U RCX #### [facility] [address] [place] [address] Dr. Caitlin Martinez Crystals LM Nom (Urine sed) SEEN Abnormal NONE SEEN [facility] Comment on above: Performed By: #### U RCX #### [facility] [address] [place] [address] Dr. Caitlin Martinez Epithelial cells LM Ql (Urine sed) RARE Normal NONE SEEN /RARE [facility] Comment on above: Performed By: #### U RCX #### [facility] [address] [place] [address] Dr. Caitlin Martinez MUCOUS TRACE Abnormal NONE SEEN [facility] Comment on above: Performed By: #### U RCX #### [facility] [address] [place] [address] Dr. Caitlin Martinez RBC 0-2 Normal 0-2 [facility] Comment on above: Performed By: #### U RCX #### [facility] [address] [place] [address] Dr. Caitlin Martinez WBC 2-5 Abnormal NONE SEEN [facility] Comment on above: Performed By: #### U RCX #### [facility] [address] [place] [address] Dr. Caitlin Martinez GLUCOSE - 1HRon 11-06-2021 Glucose [Mass/Vol] 131 mg/dL Critically high 74-106 [facility] Comment on above: Performed By: #### I HORACIO #### [facility] [address] [place] [address] Dr. Caitlin Martinez HEMOGRAM AND PLATELon 2021 Hematocrit (Bld) [Volume fraction] 34.2 % Critically low 36.0-48.0 [facility] Comment on above: Performed By: #### C BC #### [facility] [address] [place] [address] Dr. Caitlin Martinez Hemoglobin (Bld) [Mass/Vol] 11.3 g/dL Critically low 12.0-16.0 [facility] Comment on above: Performed By: #### C BC #### [facility] [address] [place] [address] Dr. Caitlin Martinez MCH (RBC) [Entitic mass] 31.7 pg Normal 26.7-34.0 [facility] Comment on above: Performed By: #### C BC #### [facility] [address] [place] [address] Dr. Caitlin Martinez MCHC (RBC) [Mass/Vol] 33.0 g/dL Normal 29.9-35.2 [facility] Comment on above: Performed By: #### C BC #### [facility] [address] [place] [address] Dr. Caitlin Martinez MCV (RBC) [Entitic vol] 96.1 fL Normal 81.0-99.0 [facility] Comment on above: Performed By: #### C BC #### [facility] [address] [place] [address] Dr. Caitlin Martinez PLT 372 103/ul Normal 150-450 [facility] Comment on above: Performed By: #### C BC #### [facility] [address] [place] [address] Dr. Caitlin Martinez RBC 3.56 106/ul Critically low 4.20-5.40 [facility] Comment on above: Performed By: #### C BC #### [facility] [address] [place] [address] Dr. Caitlin Martinez WBC 10.1 103/ul Normal 4.0-11.0 [facility] Comment on above: Performed By: #### C BC #### [facility] [address] [place] [address] Dr. Caitlin Martinez CHLAMYDIA/GONOCOCCUS JONATAN (SW AB/URINE/PAPon 10-31-2021 Chlamydia trachomatis, JONATAN Negative Normal Negative [facility] Comment on above: Performed By: #### C BC #### [facility] [address] [place] [address] Dr. Caitlin Martinez Neisseria gonorrhoeae, JONATAN Negative Normal Negative [facility] Comment on above: Performed By: #### C BC #### [facility] [address] [place] [address] Dr. Caitlin Martinez VAGINITIS/VAGINOSIS DNA PROB Paramjit 10-29-2021 Selena species Negative Normal Negative [facility] Comment on above: Performed By: #### U RCX #### [facility] [address] [address] [address] Caitlin Martinez Gardnerella vaginalis Negative Normal Negative [facility] Comment on above: Performed By: #### U RCX #### [facility] [address] [address] [address] Caitlin Martinez Trichomonas vaginalis Negative Normal Negative [facility] Comment on above: Performed By: #### U RCX #### [facility] [address] [place] [address] Dr. Caitlin Martinez US PREG INCOMPLETE ANATOMYon [...] DAVID BLACKMON Date: 2021-10-26 12:05 Normal [facility] CBC W MANUAL DIFFon 10-25-19 22 ATYPICAL LYMPH # Normal [facility] Comment on above: Performed By: #### U RCX #### [facility] [address] [place] [address] Dr. Caitlin Martinez ATYPICAL LYMPH % Normal [facility] Comment on above: Performed By: #### U RCX #### [facility] [address] [place] [address] Dr. Caitlin Martinez BAND # 0.1 103/ul Normal 0.0-0.3 [facility] Comment on above: Performed By: #### U RCX #### [facility] [address] [place] [address] Dr. Caitlin Martinez BAND % 1 % Normal 0-5 [facility] Comment on above: Performed By: #### U RCX #### [facility] [address] [place] [address] Dr. Caitlin Martinez BASOM # 0.00 103/ul Normal 0.00-0.10 [facility] Comment on above: Performed By: #### U RCX #### [facility] [address] [place] [address] Dr. Caitlin Martinez BASOM % 0.0 % Critically low 0.2-2.0 [facility] Comment on above: Performed By: #### U RCX #### [facility] [address] [place] [address] Dr. Caitlin Martinez BLAST # Normal [facility] Comment on above: Performed By: #### U RCX #### [facility] [address] [place] [address] Dr. Caitlin Martinez BLAST % Normal [facility] Comment on above: Performed By: #### U RCX #### [facility] [address] [place] [address] Dr. Caitlin Martinez CORRECTED WBC Normal 4.0-11.0 [facility] Comment on above: Performed By: #### U RCX #### [facility] [address] [place] [address] Dr. Caitlin Martinez EOS # 0.12 103/ul Normal 0.00-0.70 [facility] Comment on above: Performed By: #### U RCX #### [facility] [address] [place] [address] Dr. Caitlin Martinez EOS% 1.0 % Normal 0.9-7.0 [facility] Comment on above: Performed By: #### U RCX #### [facility] [address] [place] [address] Dr. Caitlin Martinez HCT 31.5 % Critically low 36.0-48.0 [facility] Comment on above: Performed By: #### U RCX #### [facility] [address] [place] [address] Dr. Caitlin Martinez HGB 10.5 g/dl Critically low 12.0-16.0 [facility] Comment on above: Performed By: #### U RCX #### [facility] [address] [place] [address] Dr. Caitlin Martinez LYMPHM # 0.37 103/ul Critically low 1.20-3.80 [facility] Comment on above: Performed By: #### U RCX #### [facility] [address] [address] [address] Caitlin Martinez LYMPHM% 3.0 % Critically low 20.5-60.0 [facility] Comment on above: Performed By: #### U RCX #### [facility] [address] [address] [address] Caitlin Martinez MCH 31.8 pg Normal 26.7-34.0 [facility] Comment on above: Performed By: #### U RCX #### [facility] [address] [place] [address] Dr. Caitlin Martinez MCHC 33.3 g/dl Normal 29.9-35.2 [facility] Comment on above: Performed By: #### U RCX #### [facility] [address] [place] [address] Dr. Caitlin Martinez MCV 95.5 fL Normal 81.0-99.0 [facility] Comment on above: Performed By: #### U RCX #### [facility] [address] [place] [address] Dr. Caitlin Martinez METAMYELOCYTE # Normal [facility] Comment on above: Performed By: #### U RCX #### [facility] [address] [place] [address] Dr. Caitlin Martinez METAMYELOCYTE % Normal [facility] Comment on above: Performed By: #### U RCX #### [facility] [address] [place] [address] Dr. Caitlin Martinez MONOM# 0.73 103/ul Normal 0.30-0.80 [facility] Comment on above: Performed By: #### U RCX #### [facility] [address] [place] [address] Dr. Caitlin Martinez MONOM% 6.0 % Normal 1.7-12.0 [facility] Comment on above: Performed By: #### U RCX #### [facility] [address] [address] [address] Caitlin Martinez MPV 9.5 fL Normal 9.5-13.5 [facility] Comment on above: Performed By: #### U RCX #### [facility] [address] [address] [address] Caitlin Martinez MYELOCYTE # Normal [facility] Comment on above: Performed By: #### U RCX #### [facility] [address] [address] [address] Caitlin Martinez MYELOCYTE % Normal [facility] Comment on above: Performed By: #### U RCX #### [facility] [address] [place] [address] Dr. Caitlin Martinez NRBC Normal [facility] Comment on above: Performed By: #### U RCX #### [facility] [address] [place] [address] Dr. Caitlin Martinez PLT 275 103/ul Normal 150-450 [facility] Comment on above: Performed By: #### U RCX #### [facility] [address] [address] [address] Caitlin Martinez RBC 3.30 106/ul Critically low 4.20-5.40 [facility] Comment on above: Performed By: #### U RCX #### [facility] [address] [place] [address] Dr. Caitlin Martinez RDW 13.6 % Normal 11.0-15.0 [facility] Comment on above: Performed By: #### U RCX #### [facility] [address] [address] [address] Caitlin Martinez SEG # 10.86 103/ul Critically high 1.40-6.50 [facility] Comment on above: Performed By: #### U RCX #### [facility] [address] [place] [address] Dr. Caitlin Martinez SEG % 89.0 % Critically high 43.0-75.0 [facility] Comment on above: Performed By: #### U RCX #### [facility] [address] [place] [address] Dr. Caitlin Martinez WBC 12.2 103/ul Critically high 4.0-11.0 [facility] Comment on above: Performed By: #### U RCX #### [facility] [address] [place] [address] Dr. Caitlin Martinez ER URINE PROFILEon 2 Bilirubin Ql (U) Negative Normal NEGATIVE [facility] Comment on above: Performed By: #### C VDTBH #### [facility] [address] [place] [address] Dr. Caitlin Martinez Clarity (U) SL CLOUDY Abnormal CLEAR [facility] Comment on above: Performed By: #### C VDTBH #### [facility] [address] [place] [address] Dr. Caitlin Martinez Color (U) YELLOW Normal YELLOW [facility] Comment on above: Performed By: #### C VDTBH #### [facility] [address] [place] [address] Dr. Caitlin Martinez ERUAHNadine A micrscopic examination will be performed if indicated. Normal [facility] Comment on above: Performed By: #### C VDTBH #### [facility] [address] [place] [address] Dr. Caitlin Martinez Glucose Ql (U) Negative Normal NEGATIVE [facility] Comment on above: Performed By: #### C VDTBH #### [facility] [address] [place] [address] Dr. Caitlin Martinez Hemoglobin Ql (U) Negative Normal NEGATIVE [facility] Comment on above: Performed By: #### C VDTBH #### [facility] [address] [place] [address] Dr. Caitlin Martinez Ketones Ql (U) >=80 Abnormal NEGATIVE [facility] Comment on above: Performed By: #### C VDTBH #### [facility] [address] [place] [address] Dr. Caitlin Martinez LEUKOCYTES Negative Normal NEGATIVE [facility] Comment on above: Performed By: #### C VDTBH #### [facility] [address] [place] [address] Dr. Caitlin Martinez Nitrite Ql (U) Negative Normal NEGATIVE [facility] Comment on above: Performed By: #### C VDTBH #### [facility] [address] [place] [address] Dr. Caitlin Martinez pH (U) 6.0 [pH] Normal 5-9 [facility] Comment on above: Performed By: #### C VDTB #### [facility] [address] [place] [address] Dr. Caitlin Martinez SPEC GRAVITY 1.020 Normal 1.005-<=1.025 [facility] Comment on above: Performed By: #### C VDTB #### [facility] [address] [place] [address] Dr. Caitlin Martinez UA PROTEIN Negative Normal NEGATIVE/ TRACE [facility] Comment on above: Performed By: #### C VDTBH #### [facility] [address] [place] [address] Dr. Caitlin Martinez UR MICRO IND NOT INDICATED Normal [facility] Comment on above: Performed By: #### C VDTBH #### [facility] [address] [place] [address] Dr. Caitlin Martinez Urobilinogen Qn (U) 1.0 {Barbara'U}/dL Normal 0.2 - 1. 0 [facility] Comment on above: Performed By: #### C VDTBH #### [facility] [address] [place] [address] Dr. Caitlin Martinez INFLUENZA A AND B [facility]on 10-[facility] Normal [facility] Comment on above: Result Comment: Nega tive for Flu B protein antigen. Infection due to Flu B cannot be ruled out. Flu B antigen in the sample may be below the detection limit of the test. Performed By: #### C VDTBH #### [facility] [address] [place] [address] Dr. Caitlin Martinez INFLUENZA A AG Positive Abnormal NEGATIVE SEE COMMENT [facility] Comment on above: Performed By: #### C VDTBH #### [facility] [address] [place] [address] Dr. Caitlin Martinez INFLUENZA B AG Negative Normal NEGATIVE SEE COMMENT [facility] Comment on above: Performed By: #### C VDTBH #### [facility] [address] [place] [address] Dr. Caitlin Martinez INFLUPOSH SEE BELOW Normal [facility] Comment on above: Result Comment: NOTE : Live attenuated influenzae vaccine viruses can cause a positive result for a rapid influenza diagnostic test if administered up to 7 days prior to rapid testing. Performed By: #### C VDTBH #### [facility] [address] [place] [address] Dr. Caitlin Martinez INTERNAL CONTROLS Within Normal Limits Normal Wi thin Normal Limits [facility] Comment on above: Performed By: #### C VDTBH #### [facility] [address] [place] [address] Dr. Caitlin Martinez PROF CHEM 8 (BAS METB)on Anion gap [Moles/Vol] 14.4 mmol/L Normal [facility] Comment on above: Performed By: #### D IRCMB, ABID #### [facility] [address] [place] [address] Dr. Caitlin Martinez Calcium [Mass/Vol] 8.4 mg/dL Critically low 8.5-10.1 [facility] Comment on above: Performed By: #### D IRCMB, ABID #### [facility] [address] [place] [address] Dr. Caitlin Martinez Chloride [Moles/Vol] 101 mmol/L Normal 98-107 [facility] Comment on above: Performed By: #### D IRCMB, ABID #### [facility] [address] [place] [address] Dr. Caitlin Martinez CO2 [Moles/Vol] 19.7 mmol/L Critically low 21.0-32.0 [facility] Comment on above: Performed By: #### D IRCMB, ABID #### [facility] [address] [place] [address] Dr. Caitlin Martinez Creatinine [Mass/Vol] 0.55 mg/dL Normal 0.55-1.02 [facility] Comment on above: Performed By: #### D IRCMB, ABID #### [facility] [address] [address] [address] Caitlin Martinez EGFR-AF [place]IZ[place] >60 Normal >=60 [facility] Comment on above: Performed By: #### D IRCMB, ABID #### [facility] [address] [address] [address] Caitlin Martinez EGFR-NON AF [place]IZ[place] >60 Normal >=60 [facility] Comment on above: Performed By: #### D IRCMB, ABID #### [facility] [address] [place] [address] Dr. Caitlin Martinez Glucose [Mass/Vol] 91 mg/dL Normal 74-106 [facility] Comment on above: Performed By: #### D IRCMB, ABID #### [facility] [address] [place] [address] Dr. Caitlin Martinez Potassium [Moles/Vol] 3.1 mmol/L Critically low 3.5-5.1 [facility] Comment on above: Performed By: #### D IRCMB, ABID #### [facility] [address] [place] [address] Dr. Caitlin Martinez Sodium [Moles/Vol] 132 mmol/L Critically low 136-145 [facility] Comment on above: Performed By: #### D IRCMB, ABID #### [facility] [address] [place] [address] Dr. Caitlin Martinez Urea nitrogen [Mass/Vol] 7.0 mg/dL Normal 7.0-18.0 [facility] Comment on above: Performed By: #### D IRCMB, ABID #### [facility] [address] [place] [address] Dr. Caitlin Martinez Urea nitrogen/Creatinine [Mass ratio] 12.7 mg/mg Normal [facility] Comment on above: Performed By: #### D IRCMB, ABID #### [facility] [address] [address] [address] Caitlin Martinez US PREG ANATOMY SINGLEon [...] by: DAVID BLACKMON Date: 2021-09-28 09:17 Normal [facility] CHEMISTRYOrdered By: SYSTEM SYSTEM on 06-21-2021 [place] [address] m[IU]/mL High 1 - 3 mIU/mL [facility] [place] XR LUMBAR SPINE [...] gas pattern is nonobstructive. There is a lnrddxlb-mt-ospgr amount of stool burden. IMPRESSION: No malalignment. No acute compression deformity. Jevgdxkt-gt-nqtsn amount of stool burden. [employer] Workstation ID: [id number] Dictated by: LUBA GARCÍA on [facility] Mar 05, 2020 4:09:51 PM EDT Transcribed by: KELVIN GUADALUPE on [facility] Mar 05, 2020 4:17:18 PM EDT Finalized by: LUBA GARCÍA on [facility] Mar 05, 2020 7:52:11 PM EDT [facility] Comment on above: Order Comment: Injur y/Trauma or Illness?:Illness/Other How long have you had these symptoms (acute/chronic)?:Chronic Reason for exam?:low back pain History of cancer?:n Surgeries, chemotherapy, or radiation?:n Type of Exam?:Initial Additional signs and symptoms?:fibromyalgia XR Lumbar Spine 2-3 Views (S tandard)on 03-05-2020 No malalignment. No acute compression deformity. Qqdswuck-hv-wukdg amount of stool burden. [employer] Workstation ID: [id number] [facility] EXAMINATION: XR LUMBAR SPINE 2-3 VIEWS [...] gas pattern is nonobstructive. There is a bbqwyknn-nx-efrrt amount of stool burden. [facility] Interface, Rad In Jose Luis Speechq [...] gas pattern is nonobstructive. There is a uofggrsp-ve-pcbgi amount of stool burden. IMPRESSION: No malalignment. No acute compression deformity. Hdjznyow-wj-fiuaq amount of stool burden. [employer] Workstation ID: [id number] [facility] CNOVon 10-28-2018 CNOV Office Visit (OLVIN ) SANDY GODINEZ ([id number]) 1995 F Date Time Provider Department 10/28/18 [...] Garcia MD REFERRING PROVIDER: Farrah Garcia MD [address] [facility] [address] Consult requested for an opinion regarding the [...] TIME: 12:44 PM Referring Provider: FARRAH GARCIA [[id number]] Allergies As of Date: 10/28/2018 (No Known [...] RODRIGUEZ MD on 10/29/18 Normal [facility] PROGRESSon 10-28-2018 Protein mass conc HNO ID: [id number] Author: Warren Reddy Esa Service: ? Author Type: Physician Type: Progress Notes Filed: 10/29/2018 3:03 PM Note Text: VASCULAR SURGERY INITIAL CONSULT SERVICE DATE: 10/28/2018 SERVICE TIME: 12:44 PM PRIMARY CARE PHYSICIAN: Farrah Garcia MD REFERRING PROVIDER: Farrah Garcia MD [address] [facility] [address] Consult requested for an opinion regarding the [...] 2018 TIME: 12:44 PM Normal [facility] Vital Signs Date Time Vital Sign Value Performing Clinician Chiquis zaragoza 07-19-2023 09:31-0500 Body mass index (BMI) [Ratio] 26.79 kg/m2 [facility] Nurse [facility] 07-19-2023 09:31-0500 Body weight 73.03 kg [facility] Nurse [facility] 07-19-2023 09:31-0500 Diastolic blood pressure 72 mm[Hg] [facility] Nurse [facility] 07-19-2023 09:31-0500 Systolic blood pressure 118 mm[Hg] [facility] Nurse [facility] Encounters Encounter Date Encounter Type Care Provider [...] End: 11-08-2023 ambulatory JOSE MIGUEL R JUSTEN [facility] Start: 10-15-2023 End: 10-15-2023 ambulatory JOSE [...] 07-08-2023 ambulatory Royer Layne acility:[facility] Start: 07-02-2023 End: 07-02-2023 ambulatory [...] 06-21-2021 End: 09-19-2021 Recurring Jose Miguel CAMPUZANO [facility] Start: 03-05-2020 End: 03-06-2020 Patient encounter procedure [facility] Start: 03-05-2020 End: 03-05-2020 Subsequent hospital visit by physician [facility] Work Phone: [facility] Comment on above: Chronic low [...] encounter procedure 08/19/2023 11:10 AM EST Routine [facility] [address] [place] [id number] Jose Miguel Campuzano, DO [address] [place] [address] [facility] Start: 07-19-2023 End: 07-19-2024 ABO/Rh ABO/Rh Lab Routine Missed menses Expected: 07/19/2023 (Approximate), Expires: 07/19/2024 [facility] Comment on above: Expected: 07/19/2023 (Approximate), Expires: 07/19/2024 Start: 07-19-2023 End: 07-19-2024 Blood type and Indirect antibody screen panel - Blood Type and screen Lab Routine Missed menses Expected: 07/19/2023 (Approximate), Expires: 07/19/2024 [facility] Work Phone: Comment on above: Expected: 07/19/2023 (Approximate), Expires: 07/19/2024 Start: 07-19-2023 End: 07-19-2024 US Pelvis transvaginal US OB transvaginal Imaging Routine Missed menses Expected: 07/19/2023 (Approximate), Expires: 07/19/2024 [facility] Comment on above: Expected: 07/19/2023 (Approximate), Expires: 07/19/2024 Start: 02-16-2020 Influenza vaccinatio n given Sequential Influenza Vaccine (#1) [facility] Start: 2014 Hepatitis C antibody , confirmatory test Hepatitis C Screening [facility] Start: 08-31-2011 HIV screening HIV Screening [facility] Start: 08-31-2007 Vaccination for [place] papillomavirus HPV Vaccines (1 - 2-dose series) [facility] Start: 08-31-1999 History and physical examination, annual for health maintenance Wellness Visit [facility] Start: 1996 Screening for Chlamy tristan trachomatis Chlamydia Screening [facility] Start: 1996 Screening for malign ant neoplasm of cervix Pap Smear [facility] Start: 1996 Tetanus vaccination Tetanus: Every 1 0yrs [facility] Bacteria identified in Urine by Culture Urine culture Microbiology Routine Missed menses Ordered: 07/19/2023 [facility] Comment on above: Ordered: 07/19/2023 CBC W Auto Different ial panel - Blood CBC and differential Lab Routine Missed menses Ordered: 07/19/2023 [facility] Comment on above: Ordered: 07/19/2023 Hemoglobin A1c measurement Hemoglobin A1c Lab Routine Missed menses Ordered: 07/19/2023 [facility] Comment on above: Ordered: 07/19/2023 Hepatitis B virus knight rface Ag [Presence] in Serum or Plasma by Immunoassay Hepatitis B surface antigen Lab Routine Missed menses Ordered: 07/19/2023 [facility] Comment on above: Ordered: 07/19/2023 Hepatitis C virus Ab [Presence] in Serum or Plasma by Immunoassay Hepatitis C antibody Lab Routine Missed menses Ordered: 07/19/2023 [facility] Comment on above: Ordered: 07/19/2023 HIV-1/HIV-2 antigen/antibody combination immunoassay HIV-1 and HIV-2 antibodies Lab Routine Missed menses Ordered: 07/19/2023 [facility] Comment on above: Ordered: 07/19/2023 Reagin Ab [Presence] in Serum by RPR RPR Lab Routine Missed menses Ordered: 07/19/2023 [facility] Comment on above: Ordered: 07/19/2023 Rubella antibody, IgG Rubella an tibody, IgG Lab Routine Missed menses Ordered: 07/19/2023 [facility] Comment on above: Ordered: 07/19/2023 Payers Date Payer Category Payer Self-pay 2022 Medicaid [employer] [place] [id number] 2022-Present [address] [place] [address] [id number] 1995 Unknown [id number] 2.16.840.1.486723.3.579.2.903 1996 Unknown [id number] 2.16.840.1.013389.3.579.2.593 1996 Unknown [id number] 2.16.840.1.364913.3.579.2.593 1996 Unknown [id number] 2.16.840.1.202820.3.579.2.593 1996 Unknown [id number] 2.16.840.1.463888.3.579.2.593 1996 Unknown [id number] 2.16.840.1.316056.3.579.2.593 1996 Unknown [id number] 2.16.840.1.626119.3.579.2.593 1996 Unknown [id number] 2.16.840.1.100265.3.579.2.593 1996 Unknown [id number] 2.16.840.1.222155.3.579.2.593 1996 Unknown [id number] 2.16.840.1.625722.3.579.2.593 1996 Unknown [id number] 2.16.840.1.830535.3.579.2.593 1996 Unknown [id number] 2.16.840.1.085771.3.579.2.593 1996 Unknown [id number] 2.16.840.1.033945.3.579.2.593 1996 Unknown [id number] 2.16.840.1.535522.3.579.2.593 1996 Unknown [id number] 2.16.840.1.562076.3.579.2.593 1996 Unknown [id number] 2.16.840.1.124828.3.579.2.593 1996 Unknown [id number] 2.16.840.1.239587.3.579.2.593 1996 Unknown [id number] 2.16.840.1.119870.3.579.2.593 1996 Unknown [id number] 2.16.840.1.859527.3.579.2.593 1996 Unknown [id number] 2.16.840.1.075881.3.579.2.593 1996 Unknown [id number] 2.16.840.1.432436.3.579.2.593 1996 Unknown [id number] 2.16.840.1.509599.3.579.2.593 1996 Unknown [id number] 2.16.840.1.429886.3.579.2.1286 1996 Unknown [id number] 2.16.840.1.881882.3.579.2.1286 1996 Unknown [id number] 2.16.840.1.823781.3.579.2.1259 1996 Unknown [id number] 2.16.840.1.367979.3.579.2.1259 1996 Unknown [id number] 2.16.840.1.045322.3.579.2.1259 1996 Unknown [id number] 2.16.840.1.594761.3.579.2.9 1996 Unknown [id number] 2.16.840.1.195061.3.579.2.9 1996 Unknown [id number] 2.16.840.1.144346.3.579.2.1258 1996 Unknown [id number] 2.16.840.1.579939.3.579.2.1258 1996 Unknown [id number] 2.16.840.1.845338.3.579.2.1258 1996 Unknown [id number] 2.16.840.1.789737.3.579.2.1258 1996 Unknown [id number] 2.16.840.1.289213.3.579.2.1259 1959 Unknown [id number] 1959 Unknown [id number] Unknown COMMERCIAL COMME RCIAL MISCELLANEOUS [id number] Effective for all dates [id number] 1.2.840.733255.1.13.385.2.7.3. 901164.315 Unknown [id number] Unknown [id number] 2.16.840.1.081800.3.579.2.531 Social History Date Type Detail Facility Tobacco smoking stat [facility] Unknown if ever smoked [facility] Sex Assigned At Not on file [facility] Start: 12-07-2022 Sex Assigned At Female [facility] Start: 12-07-2022 Tobacco smoking status NHIS Never smoked tobacco [facility] Start: 07-19-2023 Alcohol intake Current drinker of alcohol (finding) [facility] Start: 12-07-2022 History of Social function [facility] Start: 12-07-2022 Alcohol Comment 1-2 drinks less than monthly in the past year [facility] Start: 05-31-2023 [facility] Start: 1995 Sex Assigned At Female [facility] Start: 11-29-2022 Gender identity Identifies as female gender (finding) [facility] Start: 11-29-2022 Sexual orientation Heterosexual (finding) [facility] History of Present illness Narrative [...] sent for nausea to pharmacy. Pt desires [place] [facility] and understands to have it done at 10 weeks along w/her labs. Follow Up: Patient is to have labs drawn at directed and return to office for initial OB appointment with provider. Patient may call office as needed with any concerns or questions. Nurse Visit Completed by: Cori Daniel MA documented in this encounter [facility] Clinical Note 01-16-2022 Note Date & Type [...] authenticated by: Cecelia FOOTE Date: 2022-01-16 21:33 [facility] Clinical Note 01-16-2022 Note Date [...] authenticated by: Cecelia FOOTE Date: 2022-01-16 21:33 [facility] Clinical Note 01-15-2022 Note Date & Type [...] by: IGOR DIAZ Date: 2022-01-15 10:10 [facility] Evaluation + Plan note Note Date & Type Note Facility Evaluation + Plan note No data available for this section [facility] Evaluation note Note Date & Type Note Facility Evaluation note Diagnosis Missed menses Nausea Nausea alone documented in this encounter [facility] Discharge instructions Note Date & Type Note Facility Hospital Discharge instructions No data available for this section [facility] Summary Purpose Family History No Family History Records FoundNo Family History Records FoundNo Family History Records FoundNo Family History Records FoundNo Family History Records FoundNo Family History Records FoundNo Family History Records Found Advance Directives No Advanced Directives Records FoundDocuments on File Type Date Recorded 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 Advance Directives and Livin g Will 03/05/2020 2:18 PM Assessments Diagnosis Chronic low back pain, unspecified back pain laterality, unspecified whether sciatica present Additional Source Comments INFORMATION SOURCE (unrecogn ized section and content) DATE CREATED AUTHOR 11/08/2018 [facility] DATE CREATED AUTHOR AUTHOR'S ORGANIZ ATION 03/21/2020 [facility] DATE CREATED AUTHOR AUTHOR'S ORGANIZ ATION 08/04/2022 [facility] DATE CREATED AUTHOR AUTHOR'S ORGANIZ ATION 09/06/2022 [facility] DATE CREATED AUTHOR AUTHOR'S ORGANIZ ATION 09/17/2023 [facility] DATE CREATED AUTHOR AUTHOR'S ORGANIZ ATION 11/09/2023 [facility] DATE CREATED AUTHOR AUTHOR'S ORGANIZ ATION 01/09/2024 [facility] Reason for Visit (unrecogniz ed section [...] BASED ON THE PRIMARY CLINICAL RECORDS. [facility] [employer] [facility]. provides no warranty or guarantee of the accuracy or completeness of information in this document.
[2024-01-16 11:02] VITALS: BP 118/62; PULSE 93
== END 2024-01-16 11:49 | disposition home or self-care (01) ==
LOC: FBCO 07:11 → FBC 10:50
PROVIDERS: PCP Nurse Practitioner Family; Visit Provider Obstetrics & Gynecology
DX: O43.899 Other placental disorders, unspecified trimester (principal)
CPT/HCPCS: 59025

== ENCOUNTER 2024-01-20 06:59 | Outpatient (OUT) | payer OTHER, SELFPAY ==
--- NOTE | 2024-01-20 | US_ITS ---
[address] [address] Patient Name: SANDY GODINEZ MRN: [id number] date: 1995 Sex: F Assigned Patient Location: [facility] Current Patient Location: Accession/Order Number: [id number] Exam Date: 01/20/2024 10:58 Report Date: 01/21/2024 05:43 At the request of: JOSE MIGUEL BOATENG Procedure: US OB umbilical artery EXAMINATION: US OB umbilical artery HISTORY: Single vessel of umbilical cord Q27.0 COMPARISON: Ultrasound available artery 01/13/2024 TECHNIQUE: Duplex Doppler evaluation of the umbilical arteries. FINDINGS: HEART RATE: 137 bpm UMBILICAL ARTERIES: 1 GESTATIONAL AGE: 35 weeks 3 days WAVEFORM: Normal upstroke. No notching. Forward flow in diastole. PEAK SYSTOLIC VELOCITY: 85 cm/s END DIASTOLIC VELOCITY: 37 cm/s SYST/DIAST RATIO (S:D): 2.3 RESISTIVE INDEX: 0.56 US/US OB umbilical artery IMPRESSION: 1. Class 0 = Normal umbilical artery blood velocity Electronically authenticated by: DAVID BLACKMON Date: 01/21/2024 05:43
--- OUTSIDE RECORDS SUMMARY | 2024-01-20 07:03 | XMS_ITS | CCD ---
Author Organization [facility] Care Team Providers Care Rat Poisoner Name Role Phone Farrah Garcia Primary Care [...] (1 source) [facility] Drug Allergy [address] 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] Onset: 02-05-2022 Episodic Other [...] AUTO DIFFon BASOPHILS ABSOLUTE AUTO 0.1 [facility] Basophils/100 WBC (Bld) 0.7 % 0.2 - 2.0 % [facility] Eosinophils/100 WBC (Bld) 2.6 % 0.9 - 7.0 % [facility] Erythrocyte distribution width (RBC) [Ratio] 13.4 % 11.0 - 15.0 % [facility] Hematocrit (Bld) [Volume fraction] 39.0 % 36.0 - 48.0 % [facility] Hemoglobin (Bld) [Mass/Vol] 12.8 g/dL 12.0 - 16.0 g/dL [facility] IMMATURE GRANULOCYTES ABS AUTO 0.01 [facility] Immature granulocytes/100 WBC (Bld) 0.1 % 0.0 - 0.5 % [facility] LYMPHOCYTES ABSOLUTE AUTO 2.2 [facility] Lymphocytes/100 WBC (Bld) 26.1 % 20.5 - 60.0 % [facility] MCH (RBC) [Entitic mass] 28.6 pg 26.7 - 34.0 pg [facility] MCHC (RBC) [Mass/Vol] 32.8 g/dL 29.9 - 35.2 g/dL [facility] MCV (RBC) [Entitic vol] 87.2 fL 81.0 - 99.0 fL [facility] MONOCYTES ABSOLUTE AUTO 0.5 [facility] Monocytes/100 WBC (Bld) 5.7 % 1.7 - 12.0 % [facility] NEUTROPHILS ABSOLUTE AUTO 5.5 [facility] Neutrophils/100 WBC (Bld) 64.8 % 43.0 - 75.0 % [facility] Platelet mean volume (Bld) [Entitic vol] 10.1 fL 9.5 - 13.5 fL [facility] TBH EO # 0.2 [facility] PLT 340 [facility] RBC 4.47 [facility] WBC 8.4 [facility] HCG ( test) Ql (U)o n 07-19-2023 Interpretation and review of laboratory results Abnormal [facility] Preg Test, Ur Positive [facility] Urinalysis macro (dipstick) panel (U)on 07-19-2023 Bilirubin, UA Negative Negative - 4(70) +++ mg/dL [facility] Blood, UA Positive Negative - 50 Anselmo/mcL [facility] Comment on above: moderate Clarity, UA Clear [facility] Color, UA [place] [facility] Glucose, UA Negative Negative - 1999(110) ++++ mg/dL [facility] Interpretation and review of laboratory results Abnormal [facility] Ketones, UA Positive Negative - 160(16) ++++ mg/dL [facility] Comment on above: trace Leukocytes, UA Positive Negative - 500+++ Monik/mcL [facility] Comment on above: small Nitrite, UA Negative Negative - Positive [facility] pH, UA 6.0 5 - 9 [facility] Protein, UA Positive Negative - 1999(20) ++++ mg/dL [facility] Comment on above: 30 Spec Grav, UA 1.030 1 - 1.03 [facility] Urobilinogen, UA 1.0 0.2 - 12 mg/dL [facility] In office Testingon 09-07-19 23 In office Testing [id number]# 1.00CD:127 Normal [facility] CBC AUTO DIFFon 07-30-2022 BASO # 0.1 103/ul Normal 0.0-0.1 [facility] Comment on above: Performed By: #### U RCX #### [facility] [address] [place] [address] Dr. Caitlin Martinez Basophils/100 WBC (Bld) 1.1 % Normal 0.2-2.0 [facility] Comment on above: Performed By: #### U RCX #### [facility] [address] [place] [address] Dr. Caitlin Martinez EO # 0.3 103/ul Normal 0.0-0.7 [facility] Comment on above: Performed By: #### U RCX #### [facility] [address] [place] [address] Dr. Caitlin Martinez Eosinophils/100 WBC (Bld) 4.7 % Normal 0.9-7.0 [facility] Comment on above: Performed By: #### U RCX #### [facility] [address] [place] [address] Dr. Caitlin Martinez Erythrocyte distribution width (RBC) [Ratio] 14.7 % Normal 11.0-15.0 [facility] Comment on above: Performed By: #### U RCX #### [facility] [address] [place] [address] Dr. Caitlin Martinez Hematocrit (Bld) [Volume fraction] 39.3 % Normal 36.0-48.0 [facility] Comment on above: Performed By: #### U RCX #### [facility] [address] [place] [address] Dr. Caitlin Martinez Hemoglobin (Bld) [Mass/Vol] 12.7 g/dL Normal 12.0-16.0 [facility] Comment on above: Performed By: #### U RCX #### [facility] [address] [place] [address] Dr. Caitlin aMrtinez IG # 0.02 10e3/ul Normal 0.00-0.03 [facility] Comment on above: Performed By: #### U RCX #### [facility] [address] [place] [address] Dr. Caitlin Martinez IG % 0.3 % Normal 0.0-0.5 [facility] Comment on above: Performed By: #### U RCX #### [facility] [address] [place] [address] Dr. Caitlin Martinez LYMPH # 2.5 103/ul Normal 1.2-3.8 [facility] Comment on above: Performed By: #### U RCX #### [facility] [address] [place] [address] Dr. Caitlin Martinez Lymphocytes/100 WBC (Bld) 34.5 % Normal 20.5-60.0 [facility] Comment on above: Performed By: #### U RCX #### [facility] [address] [place] [address] Dr. Caitlin Martinez MANUAL DIFF REQ NO Normal [facility] Comment on above: Performed By: #### U RCX #### [facility] [address] [place] [address] Dr. Caitlin Martinez MCH (RBC) [Entitic mass] 27.3 pg Normal 26.7-34.0 [facility] Comment on above: Performed By: #### U RCX #### [facility] [address] [place] [address] Dr. Caitlin Martinez MCHC (RBC) [Mass/Vol] 32.3 g/dL Normal 29.9-35.2 [facility] Comment on above: Performed By: #### U RCX #### [facility] [address] [place] [address] Dr. Caitlin Martinez MCV (RBC) [Entitic vol] 84.5 fL Normal 81.0-99.0 [facility] Comment on above: Performed By: #### U RCX #### [facility] [address] [place] [address] Dr. Caitlin Martinez MONO # 0.5 103/ul Normal 0.3-0.8 [facility] Comment on above: Performed By: #### U RCX #### [facility] [address] [place] [address] Dr. Caitlin Martinez Monocytes/100 WBC (Bld) 7.3 % Normal 1.7-12.0 [facility] Comment on above: Performed By: #### U RCX #### [facility] [address] [place] [address] Dr. Caitlin Martinez NEUT # 3.8 103/ul Normal 1.4-6.5 [facility] Comment on above: Performed By: #### U RCX #### [facility] [address] [place] [address] Dr. Caitlin Martinez Neutrophils/100 WBC (Bld) 52.1 % Normal 43.0-75.0 [facility] Comment on above: Performed By: #### U RCX #### [facility] [address] [place] [address] Dr. Caitlin Martinez Platelet mean volume (Bld) [Entitic vol] 9.0 fL Critically low 9.5-13.5 [facility] Comment on above: Performed By: #### U RCX #### [facility] [address] [place] [address] Dr. Caitlin Martinez PLT 368 103/ul Normal 150-[address] [facility] Comment on above: Performed By: #### U RCX #### [facility] [address] [place] [address] Dr. Caitlin Martinez RBC 4.65 106/ul Normal 4.20-5.[address] [facility] Comment on above: Performed By: #### U RCX #### [facility] [address] [place] [address] Dr. Caitlin Martinez WBC 7.2 103/ul Normal 4.0-11.[address] [facility] Comment on above: Performed By: #### U RCX #### [facility] [address] [place] [address] Dr. Caitlin Martinez IRONon 07-30-2022 Iron [Mass/Vol] 43.0 ug/dL Critically low 50.0-170.0 [facility] Comment on above: Performed By: #### U RCX #### [facility] [address] [place] [address] Dr. Caitlin Martinez PAP ACOG PANEL 2: 22 to 30on 07-30-2022 . . Normal [facility] Comment on above: Performed By: #### U RCX #### [facility] [address] [place] [address] Dr. Caitlin Martinez Age Gdln ACOG Testing - [facility] Comment on above: Performed By: #### U RCX #### [facility] [address] [place] [address] Dr. Caitlin Martinez DIAGNOSIS: Comment [facility] Comment on above: Result Comment: NEGA TIVE FOR INTRAEPITHELIAL LESION OR MALIGNANCY. Performed By: #### U RCX #### [facility] [address] [place] [address] Dr. Caitlin Martinez Methodology: Comment [facility] Comment on above: Result Comment: This liquid based ThinPrep(R) pap test was screened with the use of an image guided system. Performed By: #### U RCX #### [facility] [address] [place] [address] Dr. Caitlin Martinez Note: Comment [facility] Comment on above: Result Comment: The Pap smear is a screening test designed to aid in the detection of premalignant and malignant conditions of the uterine cervix. It is not a diagnostic procedure and should not be used as the sole means of detecting cervical cancer. Both false-positive and false-negative reports do occur. . Performed By: #### U RCX #### [facility] [address] [place] [address] Dr. Caitlin Martinez Performed by: Comment [facility] Comment on above: Result Comment: Bhavna Cormier, Nuclear Plant Operator (ASCP) Performed By: #### U RCX #### [facility] [address] [place] [address] Dr. Caitlin Martinez Reflex Criteria: Comment [facility] Comment on above: Result Comment: The HPV DNA reflex criteria were not met with this specimen result therefore, no HPV testing was performed. . Performed By: #### U RCX #### [facility] [address] [place] [address] Dr. Caitlin Martinez Specimen adequacy: Comment Normal [facility] Comment on above: Result Comment: Sati sfactory for evaluation. Endocervical and/or squamous metaplastic cells (endocervical component) are present. Performed By: #### U RCX #### [facility] [address] [place] [address] Dr. Caitlin Martinez INSULINon 04-19-2022 Insulin 9.1 uIU/mL Normal 2.6-24.9 [facility] Comment on above: Performed By: #### I HORACIO #### [facility] [address] [place] [address] Dr. Caitlin Martinez CBC AUTO DIFFon 04-18-2022 BASO # 0.1 103/ul Normal 0.0-0.1 [facility] Comment on above: Performed By: #### U RCX #### [facility] [address] [place] [address] Dr. Caitlin Martinez Basophils/100 WBC (Bld) 1.0 % Normal 0.2-2.0 [facility] Comment on above: Performed By: #### U RCX #### [facility] [address] [place] [address] Dr. Caitlin Martinez EO # 0.3 103/ul Normal 0.0-0.7 [facility] Comment on above: Performed By: #### U RCX #### [facility] [address] [place] [address] Dr. Caitlin Martinez Eosinophils/100 WBC (Bld) 4.1 % Normal 0.9-7.0 [facility] Comment on above: Performed By: #### U RCX #### [facility] [address] [place] [address] Dr. Caitlin Martinez Erythrocyte distribution width (RBC) [Ratio] 16.0 % Critically high 11.0-15.0 [facility] Comment on above: Performed By: #### U RCX #### [facility] [address] [address] [address] Caitlin Martinez Hematocrit (Bld) [Volume fraction] 35.7 % Critically low 36.0-48.0 [facility] Comment on above: Performed By: #### U RCX #### [facility] [address] [place] [address] Dr. Caitlin Martinez Hemoglobin (Bld) [Mass/Vol] 10.9 g/dL Critically low 12.0-16.0 [facility] Comment on above: Performed By: #### U RCX #### [facility] [address] [address] [address] Caitlin Martinez IG # 0.07 10e3/ul Critically high 0.00-0.03 [facility] Comment on above: Performed By: #### U RCX #### [facility] [address] [place] [address] Dr. Caitlin Martinez IG % 1.0 % Critically high 0.0-0.5 [facility] Comment on above: Performed By: #### U RCX #### [facility] [address] [address] [address] Caitlin Martinez LYMPH # 2.3 103/ul Normal 1.2-3.8 [facility] Comment on above: Performed By: #### U RCX #### [facility] [address] [place] [address] Dr. Caitlin Martinez Lymphocytes/100 WBC (Bld) 31.4 % Normal 20.5-60.0 [facility] Comment on above: Performed By: #### U RCX #### [facility] [address] [place] [address] Dr. Caitlin Martinez MANUAL DIFF REQ NO Normal [facility] Comment on above: Performed By: #### U RCX #### [facility] [address] [place] [address] Dr. Caitlin Martinez MCH (RBC) [Entitic mass] 24.8 pg Critically low 26.7-34.0 [facility] Comment on above: Performed By: #### U RCX #### [facility] [address] [address] [address] Caitlin Martinez MCHC (RBC) [Mass/Vol] 30.5 g/dL Normal 29.9-35.2 [facility] Comment on above: Performed By: #### U RCX #### [facility] [address] [address] [address] Caitlin Martinez MCV (RBC) [Entitic vol] 81.1 fL Normal 81.0-99.[address] [facility] Comment on above: Performed By: #### U RCX #### [facility] [address] [place] [address] Dr. Caitlin Martinez MONO # 0.5 103/ul Normal 0.3-0.8 [facility] Comment on above: Performed By: #### U RCX #### [facility] [address] [place] [address] Dr. Caitlin Martinez Monocytes/100 WBC (Bld) 6.6 % Normal 1.7-12.0 [facility] Comment on above: Performed By: #### U RCX #### [facility] [address] [place] [address] Dr. Caitlin Martinez NEUT # 4.1 103/ul Normal 1.4-6.5 [facility] Comment on above: Performed By: #### U RCX #### [facility] [address] [place] [address] Dr. Caitlin Martinez Neutrophils/100 WBC (Bld) 55.9 % Normal 43.0-75.[address] [facility] Comment on above: Performed By: #### U RCX #### [facility] [address] [place] [address] Dr. Caitlin Martinez Platelet mean volume (Bld) [Entitic vol] 9.4 fL Critically low 9.5-13.5 [facility] Comment on above: Performed By: #### U RCX #### [facility] [address] [place] [address] Dr. Caitlin Martinez PLT 369 103/ul Normal 150-[address] [facility] Comment on above: Performed By: #### U RCX #### [facility] [address] [address] [address] Caitlin Martinez RBC 4.40 106/ul Normal 4.20-5.40 [facility] Comment on above: Performed By: #### U RCX #### [facility] [address] [address] [address] Caitlin Martinez WBC 7.3 103/ul Normal 4.0-11.0 [facility] Comment on above: Performed By: #### U RCX #### [facility] [address] [address] [address] Caitlin Martinez FREE THYROXINE INDEX T7on FTI 2.20 Normal 1.30-4.50 [facility] Comment on above: Performed By: #### I HORACIO #### [facility] [address] [place] [address] Dr. Caitlin Martinez T3U 29.0 % Critically low 30.0-39.0 [facility] Comment on above: Performed By: #### I HORACIO #### [facility] [address] [address] [address] Caitlin Martinez T4 [Mass/Vol] 7.60 ug/dL Normal 4.80-13.90 [facility] Comment on above: Performed By: #### I HORACIO #### [facility] [address] [place] [address] Dr. Caitlin Martinez GLYCOHEMOGLOBIN A1Con 2021 ADA RECOMMENDATION SEE BELOW Normal [facility] Comment on above: Result Comment: ADA RECOMMENDED LIMIT 4.0 - 6.0 ADA THERAPEUTIC TARGET < 7.0 ACTION SUGGESTED > 7.0 Performed By: #### U RCX #### [facility] [address] [address] [address] Caitlin Martinez Glucose [Mass/Vol] 97 mg/dL Normal [facility] Comment on above: Performed By: #### U RCX #### [facility] [address] [address] [address] Caitlin Martinez HbA1c (Bld) [Mass fraction] 5.0 % Normal 4.5-6.2 [facility] Comment on above: Performed By: #### U RCX #### [facility] [address] [address] [address] Caitlin Martinez IRONon 04-18-2022 Iron [Mass/Vol] 35.0 ug/dL Critically low 50.0-170.0 [facility] Comment on above: Performed By: #### I HORACIO #### [facility] [address] [address] [address] Caitlin Martinez LIPID PROFILEon 04-18-2022 CHOL-HDL RATIO NORM SEE BELOW Normal [facility] Comment on above: Result Comment: 3.3 - 4.4 LOW RISK 4.4 - 7.1 AVERAGE RISK 7.1 - 11.0 MODERATE RISK >11.0 HIGH RISK Performed By: #### I HORACIO #### [facility] [address] [place] [address] Dr. Caitlin Martinez Cholesterol [Mass/Vol] 221 mg/dL Critically high <=200 [facility] Comment on above: Performed By: #### I HORACIO #### [facility] [address] [place] [address] Dr. Caitlin Martinez Cholesterol in HDL [Mass/Vol] 67 mg/dL Critically high 40-60 [facility] Comment on above: Performed By: #### I HORACIO #### [facility] [address] [place] [address] Dr. Caitlin Martinez Cholesterol in LDL [Mass/Vol] 142.4 mg/dL Normal [facility] Comment on above: Performed By: #### I HORACIO #### [facility] [address] [place] [address] Dr. Caitlin Martinez Cholesterol.total/Cho lesterol in HDL [Mass ratio] 3.3 {ratio} Normal [facility] Comment on above: Performed By: #### I HORACIO #### [facility] [address] [place] [address] Dr. Caitlin Martinez HDL NORMAL > or = 60 mg/dl - LO W CARDIOVASCULAR RISK <40 mg/dl - HIGH CARDIOVASCULAR RISK Normal [facility] Comment on above: Performed By: #### I HORACIO #### [facility] [address] [address] [address] Caitlin Martinez LDL CALC NORMAL SEE BELOW Normal [facility] Comment on above: Result Comment: <100 mg/dl OPTIMAL 100 - 129 mg/dl NEAR OR ABOVE OPTIMAL 130 - 159 mg/dl BORDERLINE HIGH 160 - 189 mg/dl HIGH >190 mg/dl VERY HIGH Performed By: #### I HORACIO #### [facility] [address] [address] [address] Caitlin Martinez Triglyceride [Mass/Vol] 58 mg/dL Normal <=150 [facility] Comment on above: Performed By: #### I HORACIO #### [facility] [address] [address] [address] Caitlin Martinez VLDL CALC 11.6 mg/dL Normal [facility] Comment on above: Performed By: #### I HORACIO #### [facility] [address] [place] [address] Dr. Caitlin Martinez PROF 14(COMP METB)on 022 Albumin [Mass/Vol] 3.8 g/dL Normal 3.4-5.0 [facility] Comment on above: Performed By: #### I HORACIO #### [facility] [address] [place] [address] Dr. Caitlin Martinez Albumin/Globulin [Mass ratio] 1.1 {ratio} Normal [facility] Comment on above: Performed By: #### I HORACIO #### [facility] [address] [place] [address] Dr. Caitlin Martinez ALP [Catalytic activity/Vol] 132 U/L Critically high 46-116 [facility] Comment on above: Performed By: #### I HORACIO #### [facility] [address] [address] [address] Caitlin Martinez ALT [Catalytic activity/Vol] 55 U/L Normal 14-59 [facility] Comment on above: Performed By: #### I HORACIO #### [facility] [address] [place] [address] Dr. Caitlin Martinez Anion gap [Moles/Vol] 12.6 mmol/L Normal [facility] Comment on above: Performed By: #### I HORACIO #### [facility] [address] [address] [address] Caitlin Martinez AST [Catalytic activity/Vol] 27 U/L Normal 15-37 [facility] Comment on above: Performed By: #### I HORACIO #### [facility] [address] [address] [address] Caitlin Martinez Bilirubin [Mass/Vol] 0.6 mg/dL Normal 0.2-1.0 [facility] Comment on above: Performed By: #### I HORACIO #### [facility] [address] [address] [address] Caitlin Martinez Calcium [Mass/Vol] 9.1 mg/dL Normal 8.5-10.1 [facility] Comment on above: Performed By: #### I HORACIO #### [facility] [address] [place] [address] Dr. Caitlin Martinez Chloride [Moles/Vol] 106 mmol/L Normal 98-107 [facility] Comment on above: Performed By: #### I HORACIO #### [facility] [address] [address] [address] Caitlin Martinez CO2 [Moles/Vol] 26.5 mmol/L Normal 21.0-32.0 [facility] Comment on above: Performed By: #### I HORACIO #### [facility] [address] [place] [address] Dr. Caitlin Martinez Creatinine [Mass/Vol] 0.63 mg/dL Normal 0.55-1.02 [facility] Comment on above: Performed By: #### I HORACIO #### [facility] [address] [address] [address] Caitlin Martinez EGFR-AF [place] >60 Normal >=60 [facility] Comment on above: Performed By: #### I HORACIO #### [facility] [address] [address] [address] Caitlin Martinez EGFR-NON AF [place] >60 Normal >=60 [facility] Comment on above: Performed By: #### I HORACIO #### [facility] [address] [address] [address] Caitlin Martinez Globulin (S) [Mass/Vol] 3.6 g/dL Normal [facility] Comment on above: Performed By: #### I HORACIO #### [facility] [address] [address] [address] Caitlin Martinez Glucose [Mass/Vol] 98 mg/dL Normal 74-106 [facility] Comment on above: Performed By: #### I HORACIO #### [facility] [address] [address] [address] Caitlin Martinez Potassium [Moles/Vol] 4.1 mmol/L Normal 3.5-5.1 [facility] Comment on above: Performed By: #### I HORACIO #### [facility] [address] [place] [address] Dr. Caitlin Martinez Protein [Mass/Vol] 7.4 g/dL Normal 6.4-8.2 [facility] Comment on above: Performed By: #### I HORACIO #### [facility] [address] [place] [address] Dr. Caitlin Martinez Sodium [Moles/Vol] 141 mmol/L Normal 136-145 [facility] Comment on above: Performed By: #### I HORACIO #### [facility] [address] [place] [address] Dr. Caitlin Martinez Urea nitrogen [Mass/Vol] 9.0 mg/dL Normal 7.0-18.0 [facility] Comment on above: Performed By: #### I HORACIO #### [facility] [address] [place] [address] Dr. Caitlin Martinez Urea nitrogen/Creatinine [Mass ratio] 14.3 mg/mg Normal [facility] Comment on above: Performed By: #### I HORACIO #### [facility] [address] [place] [address] Dr. Caitlin Martinez TSHon 04-18-2022 TSH 1.349 uIU/mL Normal 0.358-3.740 [facility] Comment on above: Performed By: #### I HORACIO #### [facility] [address] [place] [address] Dr. Caitlin Martinez ANTIBODY ID PANELon 02-15-20 22 ANTIBODY ID PANEL Antibody ID Anti-D Blood Bank Notes most likely due to Rhogam given on 12/01/21 Normal [facility] Comment on above: Performed By: #### D IRCMB, ABID #### [facility] [address] [place] [address] Dr. Caitlin Martinez CTA CHEST WO W [...] by: GAGANDEEP WHEELER Date: 2022-02-10 22:55 Normal [facility] CBC AUTO DIFFon 02-10-2022 BASO # 0.1 103/ul Normal 0.0-0.1 [facility] Comment on above: Performed By: #### C BC #### [facility] [address] [place] [address] Dr. Caitlin Martinez Basophils/100 WBC (Bld) 0.4 % Normal 0.2-2.0 [facility] Comment on above: Performed By: #### C BC #### [facility] [address] [place] [address] Dr. Caitlin Martinez EO # 0.5 103/ul Normal 0.0-0.7 [facility] Comment on above: Performed By: #### C BC #### [facility] [address] [place] [address] Dr. Caitlin Martinez Eosinophils/100 WBC (Bld) 4.2 % Normal 0.9-7.0 [facility] [facility] Comment on above: Performed By: #### C BC #### [facility] [address] [place] [address] Dr. Caitlin Martinez Erythrocyte distribution width (RBC) [Ratio] 14.7 % Normal 11.0-15.0 [facility] Comment on above: Performed By: #### C BC #### [facility] [address] [place] [address] Dr. Caitlin Martinez Hematocrit (Bld) [Volume fraction] 31.1 % Critically low 36.0-48.0 [facility] Comment on above: Performed By: #### C BC #### [facility] [address] [place] [address] Dr. Caitlin Martinez Hemoglobin (Bld) [Mass/Vol] 9.6 g/dL Critically low 12.0-16.0 [facility] Comment on above: Performed By: #### C BC #### [facility] [address] [place] [address] Dr. Caitlin Martinez IG # 0.28 10e3/ul Critically high 0.00-0.03 [facility] Comment on above: Performed By: #### C BC #### [facility] [address] [place] [address] Dr. Caitlin Martinez IG % 2.3 % Critically high 0.0-0.5 [facility] Comment on above: Performed By: #### C BC #### [facility] [address] [place] [address] Dr. Caitlin Martinez LYMPH # 3.3 103/ul Normal 1.2-3.[address] [facility] Comment on above: Performed By: #### C BC #### [facility] [address] [place] [address] Dr. Caitlin Martinez Lymphocytes/100 WBC (Bld) 26.9 % Normal 20.5-60.0 [facility] Comment on above: Performed By: #### C BC #### [facility] [address] [place] [address] Dr. Caitlin Martinez MANUAL DIFF REQ NO Normal [facility] Comment on above: Performed By: #### C BC #### [facility] [address] [place] [address] Dr. Caitlin Martinez MCH (RBC) [Entitic mass] 26.2 pg Critically low 26.7-34.0 [facility] Comment on above: Performed By: #### C BC #### [facility] [address] [place] [address] Dr. Caitlin Martinez MCHC (RBC) [Mass/Vol] 30.9 g/dL Normal 29.9-35.[address] [facility] Comment on above: Performed By: #### C BC #### [facility] [address] [place] [address] Dr. Caitlin Martinez MCV (RBC) [Entitic vol] 84.7 fL Normal 81.0-99.0 [facility] Comment on above: Performed By: #### C BC #### [facility] [address] [place] [address] Dr. Caitlin Martinez MONO # 1.1 103/ul Critically high 0.3-0.8 [facility] Comment on above: Performed By: #### C BC #### [facility] [address] [place] [address] Dr. Caitlin Martinez Monocytes/100 WBC (Bld) 8.7 % Normal 1.7-12.0 [facility] Comment on above: Performed By: #### C BC #### [facility] [address] [place] [address] Dr. Caitlin Martinez NEUT # 7.0 103/ul Critically high 1.4-6.5 [facility] Comment on above: Performed By: #### C BC #### [facility] [address] [place] [address] Dr. Caitlin Martinez Neutrophils/100 WBC (Bld) 57.5 % Normal 43.0-75.[address] [facility] Comment on above: Performed By: #### C BC #### [facility] [address] [place] [address] Dr. Caitlin Martinez Platelet mean volume (Bld) [Entitic vol] 9.1 fL Critically low 9.5-13.[address] [facility] Comment on above: Performed By: #### C BC #### [facility] [address] [place] [address] Dr. Caitlin Martinez PLT 437 103/ul Normal 150-[address] [facility] Comment on above: Performed By: #### C BC #### [facility] [address] [place] [address] Dr. Caitlin Martinez RBC 3.67 106/ul Critically low 4.20-5.40 [facility] Comment on above: Performed By: #### C BC #### [facility] [address] [place] [address] Dr. Caitlin Martinez WBC 12.3 103/ul Critically high 4.0-11.0 [facility] Comment on above: Performed By: #### C BC #### [facility] [address] [place] [address] Dr. Caitlin Martinez Covid-19 PCR ([facility]on 01-16 SARS-CoV-2 (COVID-19) RNA JONATAN+probe Ql (Unsp spec) Not detected Normal NOT DETECTED [facility] Comment on above: Result Comment: When [...] for this test is supported by the [place] of Health and Human Service's declaration that [...] used). Performed By: #### C VDTBH #### [facility] [address] [place] [address] Dr. Caitlin Martinez PROF 14(COMP METB)on 022 Albumin [Mass/Vol] 2.1 g/dL Critically low 3.4-5.0 [facility] Comment on above: Performed By: #### U RCX #### [facility] [address] [place] [address] Dr. Caitlin Martinez Albumin/Globulin [Mass ratio] 0.5 {ratio} Normal [facility] Comment on above: Performed By: #### U RCX #### [facility] [address] [place] [address] Dr. Caitlin Martinez ALP [Catalytic activity/Vol] 202 U/L Critically high 46-116 [facility] Comment on above: Performed By: #### U RCX #### [facility] [address] [place] [address] Dr. Caitlin Martinez ALT [Catalytic activity/Vol] 20 U/L Normal 14-59 [facility] Comment on above: Performed By: #### U RCX #### [facility] [address] [place] [address] Dr. Caitlin Martinez Anion gap [Moles/Vol] 11.6 mmol/L Normal [facility] Comment on above: Performed By: #### U RCX #### [facility] [address] [place] [address] Dr. Caitlin Martinez AST [Catalytic activity/Vol] 17 U/L Normal 15-37 [facility] Comment on above: Performed By: #### U RCX #### [facility] [address] [place] [address] Dr. Caitlin Martinez Bilirubin [Mass/Vol] 0.3 mg/dL Normal 0.2-1.0 [facility] Comment on above: Performed By: #### U RCX #### [facility] [address] [place] [address] Dr. Caitlin Martinez Calcium [Mass/Vol] 9.2 mg/dL Normal 8.5-10.1 [facility] Comment on above: Performed By: #### U RCX #### [facility] [address] [address] [address] Caitlin Matrinez Chloride [Moles/Vol] 104 mmol/L Normal 98-107 [facility] Comment on above: Performed By: #### U RCX #### [facility] [address] [address] [address] Caitlin Martinez CO2 [Moles/Vol] 26.9 mmol/L Normal 21.0-32.0 [facility] Comment on above: Performed By: #### U RCX #### [facility] [address] [address] [address] Caitlin Martinez Creatinine [Mass/Vol] 0.56 mg/dL Normal 0.55-1.02 [facility] Comment on above: Performed By: #### U RCX #### [facility] [address] [place] [address] Dr. Caitlin Martinez EGFR-AF [place] >60 Normal >=60 [facility] Comment on above: Performed By: #### U RCX #### [facility] [address] [address] [address] Caitlin Martinez EGFR-NON AF [place] >60 Normal >=60 [facility] Comment on above: Performed By: #### U RCX #### [facility] [address] [place] [address] Dr. Caitlin Martinez Globulin (S) [Mass/Vol] 4.4 g/dL Normal [facility] Comment on above: Performed By: #### U RCX #### [facility] [address] [address] [address] Caitlin Martinez Glucose [Mass/Vol] 108 mg/dL Critically high 74-106 [facility] [place] Comment on above: Performed By: #### U RCX #### [facility] [address] [address] [address] Caitlin Martinez Potassium [Moles/Vol] 3.5 mmol/L Normal 3.5-5.1 [facility] Comment on above: Performed By: #### U RCX #### [facility] [address] [place] [address] Dr. Caitlin Martinez Protein [Mass/Vol] 6.5 g/dL Normal 6.4-8.2 [facility] Comment on above: Performed By: #### U RCX #### [facility] [address] [address] [address] Caitlin Martinez Sodium [Moles/Vol] 139 mmol/L Normal 136-145 [facility] Comment on above: Performed By: #### U RCX #### [facility] [address] [address] [address] Caitlin Martinez Urea nitrogen [Mass/Vol] 7.0 mg/dL Normal 7.0-18.0 [facility] Comment on above: Performed By: #### U RCX #### [facility] [address] [place] [address] Dr. Caitlin Martinez Urea nitrogen/Creatinine [Mass ratio] 12.5 mg/mg Normal [facility] Comment on above: Performed By: #### U RCX #### [facility] [address] [place] [address] Dr. Caitlin Martinez TROPONIN, HIGH SENSITIVITYon 02-10-2022 HSTROP <4.0 Normal 4.0-51.[address] [facility] Comment on above: Result Comment: CUT- OFF POINTS HAVE BEEN ESTABLISHED BASED ON THE FOURTH UNIVERSAL DEFINITIONS OF MYOCARDIAL INFARCTION. THE UPPER REFERENCE LIMIT (URL) OF TROPONIN, DEFINED THE 99TH PERCENTILE OF cTnI DISTRIBUTION IN A REFERENCE POPULATION, HAS BEEN CONFIRMED THE DECISION THRESHOLD FOR DC DIAGNOSIS. Performed By: #### U RCX #### [facility] [address] [place] [address] Dr. Caitlin Martinez CBC AUTO DIFFon 02-09-2022 BASO # 0.1 103/ul Normal 0.0-0.1 [facility] Comment on above: Performed By: #### U RCX #### [facility] [address] [place] [address] Dr. Caitlin Martinez Basophils/100 WBC (Bld) 0.6 % Normal 0.2-2.0 [facility] Comment on above: Performed By: #### U RCX #### [facility] [address] [address] [address] Caitlin Martinez EO # 0.3 103/ul Normal 0.0-0.[address] [facility] Comment on above: Performed By: #### U RCX #### [facility] [address] [place] [address] Dr. Caitlin Martinez Eosinophils/100 WBC (Bld) 2.3 % Normal 0.9-7.[address] [facility] Comment on above: Performed By: #### U RCX #### [facility] [address] [place] [address] Dr. Caitlin Martinez Erythrocyte distribution width (RBC) [Ratio] 14.6 % Normal 11.0-15.0 [facility] Comment on above: Performed By: #### U RCX #### [facility] [address] [place] [address] Dr. Caitlin Martinez Hematocrit (Bld) [Volume fraction] 28.8 % Critically low 36.0-48.0 [facility] Comment on above: Performed By: #### U RCX #### [facility] [address] [place] [address] Dr. Caitlin Martinez Hemoglobin (Bld) [Mass/Vol] 9.0 g/dL Critically low 12.0-16.0 [facility] Comment on above: Performed By: #### U RCX #### [facility] [address] [place] [address] Dr. Ciatlin Martinez IG # 0.20 10e3/ul Critically high 0.00-0.03 [facility] Comment on above: Performed By: #### U RCX #### [facility] [address] [place] [address] Dr. Caitlin Martinez IG % 1.5 % Critically high 0.0-0.5 [facility] Comment on above: Performed By: #### U RCX #### [facility] [address] [place] [address] Dr. Caitlin Martinez LYMPH # 3.0 103/ul Normal 1.2-3.[address] [facility] Comment on above: Performed By: #### U RCX #### [facility] [address] [address] [address] Caitlin Martinez Lymphocytes/100 WBC (Bld) 22.2 % Normal 20.5-60.[address] [facility] Comment on above: Performed By: #### U RCX #### [facility] [address] [address] [address] Caitlin Martinez MANUAL DIFF REQ NO Normal [facility] Comment on above: Performed By: #### U RCX #### [facility] [address] [address] [address] Caitlin Martinez MCH (RBC) [Entitic mass] 26.2 pg Critically low 26.7-34.[address] [facility] Comment on above: Performed By: #### U RCX #### [facility] [address] [place] [address] Dr. Caitlin Martinez MCHC (RBC) [Mass/Vol] 31.3 g/dL Normal 29.9-35.[address] [facility] Comment on above: Performed By: #### U RCX #### [facility] [address] [place] [address] Dr. Caitlin Martinez MCV (RBC) [Entitic vol] 83.7 fL Normal 81.0-99.[address] [facility] Comment on above: Performed By: #### U RCX #### [facility] [address] [place] [address] Dr. Caitlin Martinez MONO # 1.3 103/ul Critically high 0.3-0.8 [facility] Comment on above: Performed By: #### U RCX #### [facility] [address] [place] [address] Dr. Caitlin Martinez Monocytes/100 WBC (Bld) 9.8 % Normal 1.7-12.[address] [facility] Comment on above: Performed By: #### U RCX #### [facility] [address] [place] [address] Dr. Caitlin Martinez NEUT # 8.5 103/ul Critically high 1.4-6.5 [facility] Comment on above: Performed By: #### U RCX #### [facility] [address] [address] [address] Caitlin Martinez Neutrophils/100 WBC (Bld) 63.6 % Normal 43.0-75.[address] [facility] Comment on above: Performed By: #### U RCX #### [facility] [address] [address] [address] Caitlin Martinez Platelet mean volume (Bld) [Entitic vol] 9.1 fL Critically low 9.5-13.[address] [facility] Comment on above: Performed By: #### U RCX #### [facility] [address] [address] [address] Caitlin Martinez PLT 355 103/ul Normal 150-[address] [facility] Comment on above: Performed By: #### U RCX #### [facility] [address] [place] [address] Dr. Caitlin Martinez RBC 3.44 106/ul Critically low 4.20-5.40 [facility] Comment on above: Performed By: #### U RCX #### [facility] [address] [place] [address] Dr. Caitlin Martinez WBC 13.3 103/ul Critically high 4.0-11.0 [facility] Comment on above: Performed By: #### U RCX #### [facility] [address] [place] [address] Dr. Caitlin Martinez SCREENon 02-09-2022 SCREEN Negative Normal [facility] Comment on above: Performed By: #### F ETSCRN #### [facility] [address] [place] [address] Dr. Caitlin Martinez CBC AUTO DIFFon 02-08-2022 BASO # 0.1 103/ul Normal 0.0-0.[address] [facility] Comment on above: Performed By: #### U RCX #### [facility] [address] [place] [address] Dr. Caitlin Martinez Basophils/100 WBC (Bld) 0.4 % Normal 0.2-2.[address] [facility] Comment on above: Performed By: #### U RCX #### [facility] [address] [address] [address] Caitlin Martinez EO # 0.3 103/ul Normal 0.0-0.7 [facility] Comment on above: Performed By: #### U RCX #### [facility] [address] [address] [address] Caitlin Martinez Eosinophils/100 WBC (Bld) 2.6 % Normal 0.9-7.0 [facility] Comment on above: Performed By: #### U RCX #### [facility] [address] [place] [address] Dr. Caitlin Martinez Erythrocyte distribution width (RBC) [Ratio] 14.7 % Normal 11.0-15.0 [facility] Comment on above: Performed By: #### U RCX #### [facility] [address] [place] [address] Dr. Caitlin Martinez Hematocrit (Bld) [Volume fraction] 30.6 % Critically low 36.0-48.0 [facility] Comment on above: Performed By: #### U RCX #### [facility] [address] [place] [address] Dr. Caitlin Martinez Hemoglobin (Bld) [Mass/Vol] 9.7 g/dL Critically low 12.0-16.0 [facility] Comment on above: Performed By: #### U RCX #### [facility] [address] [place] [address] Dr. Caitlin Martinez IG # 0.15 10e3/ul Critically high 0.00-0.03 [facility] Comment on above: Performed By: #### U RCX #### [facility] [address] [place] [address] Dr. Caitlin Martinez IG % 1.3 % Critically high 0.0-0.5 [facility] Comment on above: Performed By: #### U RCX #### [facility] [address] [place] [address] Dr. Caitlin Martinez LYMPH # 2.8 103/ul Normal 1.2-3.[address] [facility] Comment on above: Performed By: #### U RCX #### [facility] [address] [place] [address] Dr. Caitlin Martinez Lymphocytes/100 WBC (Bld) 24.8 % Normal 20.5-60.0 [facility] Comment on above: Performed By: #### U RCX #### [facility] [address] [place] [address] Dr. Caitlin Martinez MANUAL DIFF REQ NO Normal [facility] Comment on above: Performed By: #### U RCX #### [facility] [address] [place] [address] Dr. Caitlin Martinez MCH (RBC) [Entitic mass] 26.6 pg Critically low 26.7-34.[address] [facility] Comment on above: Performed By: #### U RCX #### [facility] [address] [place] [address] Dr. Caitlin Martinez MCHC (RBC) [Mass/Vol] 31.7 g/dL Normal 29.9-35.[address] [facility] Comment on above: Performed By: #### U RCX #### [facility] [address] [place] [address] Dr. Caitlin Martinez MCV (RBC) [Entitic vol] 83.8 fL Normal 81.0-99.0 [facility] Comment on above: Performed By: #### U RCX #### [facility] [address] [place] [address] Dr. Caitlin Martinez MONO # 1.0 103/ul Critically high 0.3-0.8 [facility] Comment on above: Performed By: #### U RCX #### [facility] [address] [place] [address] Dr. Caitlin Martinez Monocytes/100 WBC (Bld) 8.7 % Normal 1.7-12.[address] [facility] Comment on above: Performed By: #### U RCX #### [facility] [address] [place] [address] Dr. Caitlin Martinez NEUT # 7.0 103/ul Critically high 1.4-6.5 [facility] Comment on above: Performed By: #### U RCX #### [facility] [address] [address] [address] Caitlin Martinez Neutrophils/100 WBC (Bld) 62.2 % Normal 43.0-75.0 [facility] Comment on above: Performed By: #### U RCX #### [facility] [address] [address] [address] Caitlin Martinez Platelet mean volume (Bld) [Entitic vol] 9.0 fL Critically low 9.5-13.5 [facility] Comment on above: Performed By: #### U RCX #### [facility] [address] [address] [address] Caitlin Martinez PLT 373 103/ul Normal 150-450 [facility] Comment on above: Performed By: #### U RCX #### [facility] [address] [place] [address] Dr. Caitlin Martinez RBC 3.65 106/ul Critically low 4.20-5.40 [facility] Comment on above: Performed By: #### U RCX #### [facility] [address] [address] [address] Caitlin Martinez WBC 11.3 103/ul Critically high 4.0-11.0 [facility] Comment on above: Performed By: #### U RCX #### [facility] [address] [place] [address] Dr. Caitlin Martinez [facility] SARS-CoV-2 (COVID-19) RNA JONATAN+probe Ql (Unsp spec) Not detected Normal NOT DETECTED [facility] Comment on above: Result Comment: When [...] for this test is supported by the [employer] of [employer] and Human Service's declaration that [...] used). Performed By: #### C BC #### [facility] [address] [place] [address] Dr. Caitlin Martinez DIRECT COOMBSon 02-08-2022 DIRECT EDWINA Negative Normal [facility] Comment on above: Performed By: #### D IRCMB, ABID #### [facility] [address] [place] [address] Dr. Caitlin Martinez DRUG SCREEN RAPID (URINE)on 02-08-2022 AMP Negative Normal NEGATIVE [facility] Comment on above: Performed By: #### C BC #### [facility] [address] [place] [address] Dr. Caitlin Martinez BAR Negative Normal NEGATIVE [facility] Comment on above: Performed By: #### C BC #### [facility] [address] [place] [address] Dr. Caitlin Martinez BUP Negative Normal NEGATIVE [facility] Comment on above: Performed By: #### C BC #### [facility] [address] [place] [address] Dr. Caitlin Martinez BZO Negative Normal NEGATIVE [facility] Comment on above: Performed By: #### C BC #### [facility] [address] [place] [address] Dr. Caitlin Martinez JEANNA Negative Normal NEGATIVE [facility] Comment on above: Performed By: #### C BC #### [facility] [address] [place] [address] Dr. Caitlin Martinez CUT-OFFS SEE BELOW Normal [facility] Comment on above: Result Comment: AMP [...] ng/mL Performed By: #### C BC #### [facility] [address] [place] [address] Dr. Caitlin Martinez DRUG CUT HEADER DRUG CLASS TEST SYSTEM CUT-OFF CONCENTRATIONS ARE FOLLOWS: Normal [facility] Comment on above: Performed By: #### C BC #### [facility] [address] [place] [address] Dr. Caitlin Martinez mAMP Negative Normal NEGATIVE [facility] Comment on above: Performed By: #### C BC #### [facility] [address] [place] [address] Dr. Caitlin Martinez MTD Negative Normal NEGATIVE [facility] Comment on above: Performed By: #### C BC #### [facility] [address] [place] [address] Dr. Caitlin Martinez OPI Negative Normal NEGATIVE [facility] Comment on above: Performed By: #### C BC #### [facility] [address] [place] [address] Dr. Caitlin Martinez OXY Negative Normal NEGATIVE [facility] Comment on above: Performed By: #### C BC #### [facility] [address] [place] [address] Dr. Caitlin Martinez PCP Negative Normal NEGATIVE [facility] Comment on above: Performed By: #### C BC #### [facility] [address] [place] [address] Dr. Caitlin Martinez PPX Negative Normal NEGATIVE [facility] Comment on above: Performed By: #### C BC #### [facility] [address] [place] [address] Dr. Caitlin Martinez TCA Negative Normal NEGATIVE [facility] Comment on above: Performed By: #### C BC #### [facility] [address] [place] [address] Dr. Caitlin Martinez THC Negative Normal NEGATIVE [facility] Comment on above: Performed By: #### C BC #### [facility] [address] [place] [address] Dr. Caitlin Martinez TYPE AND SCREENon 02-08-2022 TYPE AND SCREEN Negative Normal [facility] Comment on above: Performed By: #### I HORACIO #### [facility] [address] [place] [address] Dr. Caitlin Martinez US PREG BIOPHY W [...] DAVID BLACKMON Date: 2022-02-05 16:[address] [facility] AMNISUREon 01-25-2022 AMNISURE Negative Normal NEGATIVE [facility] Comment on above: Performed By: #### A MNI #### [facility] [address] [place] [address] Dr. Caitlin Martinez CULTURE URINEon 01-25-2022 CULTURE URINE Culture Observations : No growth Normal [facility] Comment on above: Performed By: #### U RCX #### [facility] [address] [place] [address] Dr. Caitlin Martinez UA (CLEAN/CATCH) FOOD SAFETY MANAGER/MICRO I F IND.on 01-25-2022 Bilirubin Ql (U) Negative Normal NEGATIVE [facility] Comment on above: Performed By: #### C VDTBH #### [facility] [address] [place] [address] Dr. Caitlin Martinez Clarity (U) SL CLOUDY Abnormal CLEAR [facility] Comment on above: Performed By: #### C VDTBH #### [facility] [address] [address] [address] Caitlin Martinez Color (U) LT. YELLOW Normal YELLOW [facility] Comment on above: Performed By: #### C VDTBH #### [facility] [address] [address] [address] Caitlin Martinez Glucose Ql (U) Negative Normal NEGATIVE [facility] Comment on above: Performed By: #### C VDTBH #### [facility] [address] [address] [address] Caitlin Martinez Hemoglobin Ql (U) TRACE-INTACT Abnormal NEGATIVE [facility] Comment on above: Performed By: #### C VDTBH #### [facility] [address] [place] [address] Dr. Caitlin Martinez Ketones Ql (U) Negative Normal NEGATIVE [facility] Comment on above: Performed By: #### C VDTBH #### [facility] [address] [place] [address] Dr. Caitlin Martinez LEUKOCYTES TRACE Abnormal NEGATIVE [facility] Comment on above: Performed By: #### C VDTBH #### [facility] [address] [place] [address] Dr. Caitlin Martinez Nitrite Ql (U) Negative Normal NEGATIVE [facility] Comment on above: Performed By: #### C VDTBH #### [facility] [address] [place] [address] Dr. Caitlin Martinez pH (U) 6.5 [pH] Normal 5-9 [facility] Comment on above: Performed By: #### C VDTBH #### [facility] [address] [place] [address] Dr. Caitlin Martinez SPEC GRAVITY 1.020 Normal 1.005-<=1.025 [facility] Comment on above: Performed By: #### C VDTBH #### [facility] [address] [place] [address] Dr. Caitlin Martinez UA PROTEIN Negative Normal NEGATIVE/ TRACE [facility] Comment on above: Performed By: #### C VDTBH #### [facility] [address] [place] [address] Dr. Caitlin Martinez UR MICRO IND INDICATED Normal [facility] Comment on above: Performed By: #### C VDTBH #### [facility] [address] [place] [address] Dr. Caitlin Martinez Urobilinogen Qn (U) 0.2 {Barbara'U}/dL Normal 0.2 - 1. [address] [facility] Comment on above: Performed By: #### C VDTBH #### [facility] [address] [place] [address] Dr. Caitlin Martinez URINE MICROSCOPIC ONLYon BACTERIA MODERATE Abnormal NONE SEEN [facility] Comment on above: Performed By: #### C VDTBH #### [facility] [address] [place] [address] Dr. Caitlin Martinez Bacteria identified Cx Nom (U) INDICATED Normal [facility] Comment on above: Performed By: #### C VDTBH #### [facility] [address] [place] [address] Dr. Caitlin Martinez CAST NONE SEEN Normal NONE SEEN [facility] Comment on above: Performed By: #### C VDTBH #### [facility] [address] [place] [address] Dr. Caitlin Martinez Crystals LM Nom (Urine sed) NONE SEEN Normal NONE SEEN [facility] Comment on above: Performed By: #### C VDTBH #### [facility] [address] [place] [address] Dr. Caitlin Martinez Epithelial cells LM Ql (Urine sed) FEW Abnormal NONE SEEN /RARE [facility] Comment on above: Performed By: #### C VDTBH #### [facility] [address] [place] [address] Dr. Caitlin Martinez MUCOUS TRACE Abnormal NONE SEEN [facility] Comment on above: Performed By: #### C VDTBH #### [facility] [address] [place] [address] Dr. Caitlin Martinez RBC 2-5 Abnormal 0-[address] [facility] Comment on above: Performed By: #### C VDTBH #### [facility] [address] [place] [address] Dr. Caitlin Martinez WBC 0-2 Abnormal NONE SEEN [facility] Comment on above: Performed By: #### C VDTBH #### [facility] [address] [place] [address] Dr. Caitlin Martinez AMYLASEon 01-16-2022 Amylase [Catalytic activity/Vol] 49 U/L Normal 25-[address] [facility] Comment on above: Performed By: #### C VDTBH #### [facility] [address] [place] [address] Dr. Caitlin Martinez BUNon 01-16-2022 Urea nitrogen [Mass/Vol] 3.0 mg/dL Critically low 7.0-18.0 [facility] Comment on above: Performed By: #### C BC #### [facility] [address] [place] [address] Dr. Caitlin Martinez CBC AUTO DIFFon 01-16-2022 BASO # 0.1 103/ul Normal 0.0-0.1 [facility] Comment on above: Performed By: #### U RCX #### [facility] [address] [place] [address] Dr. Caitlin Martinez Basophils/100 WBC (Bld) 0.6 % Normal 0.2-2.0 [facility] Comment on above: Performed By: #### U RCX #### [facility] [address] [place] [address] Dr. Caitlin Martinez EO # 0.3 103/ul Normal 0.0-0.[address] [facility] Comment on above: Performed By: #### U RCX #### [facility] [address] [place] [address] Dr. Caitlin Martinez Eosinophils/100 WBC (Bld) 2.6 % Normal 0.9-7.[address] [facility] Comment on above: Performed By: #### U RCX #### [facility] [address] [place] [address] Dr. Caitlin Martinez Erythrocyte distribution width (RBC) [Ratio] 14.4 % Normal 11.0-15.[address] [facility] Comment on above: Performed By: #### U RCX #### [facility] [address] [address] [address] Caitlin Martinez Hematocrit (Bld) [Volume fraction] 28.4 % Critically low 36.0-48.0 [facility] Comment on above: Performed By: #### U RCX #### [facility] [address] [place] [address] Dr. Caitlin Martinez Hemoglobin (Bld) [Mass/Vol] 9.0 g/dL Critically low 12.0-16.0 [facility] Comment on above: Performed By: #### U RCX #### [facility] [address] [place] [address] Dr. Caitlin Martinez IG # 0.11 10e3/ul Critically high 0.00-0.03 [facility] Comment on above: Performed By: #### U RCX #### [facility] [address] [place] [address] Dr. Caitlin Martinez IG % 1.1 % Critically high 0.0-0.5 [facility] Comment on above: Performed By: #### U RCX #### [facility] [address] [place] [address] Dr. Caitlin Martinez LYMPH # 2.2 103/ul Normal 1.2-3.8 [facility] Comment on above: Performed By: #### U RCX #### [facility] [address] [place] [address] Dr. Caitlin Martinez Lymphocytes/100 WBC (Bld) 21.0 % Normal 20.5-60.0 [facility] Comment on above: Performed By: #### U RCX #### [facility] [address] [place] [address] Dr. Caitlin Martinez MANUAL DIFF REQ NO Normal [facility] Comment on above: Performed By: #### U RCX #### [facility] [address] [place] [address] Dr. Caitlin Martinez MCH (RBC) [Entitic mass] 28.2 pg Normal 26.7-34.0 [facility] Comment on above: Performed By: #### U RCX #### [facility] [address] [address] [address] Caitlin Martinez MCHC (RBC) [Mass/Vol] 31.7 g/dL Normal 29.9-35.[address] [facility] Comment on above: Performed By: #### U RCX #### [facility] [address] [place] [address] Dr. Caitlin Martinez MCV (RBC) [Entitic vol] 89.0 fL Normal 81.0-99.0 [facility] Comment on above: Performed By: #### U RCX #### [facility] [address] [place] [address] Dr. Caitlin Martinez MONO # 0.9 103/ul Critically high 0.3-0.8 [facility] Comment on above: Performed By: #### U RCX #### [facility] [address] [place] [address] Dr. Caitlin Martinez Monocytes/100 WBC (Bld) 8.9 % Normal 1.7-12.0 [facility] Comment on above: Performed By: #### U RCX #### [facility] [address] [place] [address] Dr. Caitlin Martinez NEUT # 6.8 103/ul Critically high 1.4-6.5 [facility] Comment on above: Performed By: #### U RCX #### [facility] [address] [place] [address] Dr. Caitlin Martinez Neutrophils/100 WBC (Bld) 65.8 % Normal 43.0-75.[address] [facility] Comment on above: Performed By: #### U RCX #### [facility] [address] [place] [address] Dr. Caitlin Martinez Platelet mean volume (Bld) [Entitic vol] 8.6 fL Critically low 9.5-13.5 [facility] Comment on above: Performed By: #### U RCX #### [facility] [address] [place] [address] Dr. Caitlin Martinez PLT 322 103/ul Normal 150-450 [facility] Comment on above: Performed By: #### U RCX #### [facility] [address] [address] [address] Caitlin Martinez RBC 3.19 106/ul Critically low 4.20-5.40 [facility] Comment on above: Performed By: #### U RCX #### [facility] [address] [address] [address] Caitlin Martinez WBC 10.3 103/ul Normal 4.0-11.0 [facility] Comment on above: Performed By: #### U RCX #### [facility] [address] [address] [address] Caitlin Martinez CREATININEon 01-16-2022 Creatinine [Mass/Vol] 0.55 mg/dL Normal 0.55-1.02 [facility] Comment on above: Performed By: #### C VDTBH #### [facility] [address] [place] [address] Dr. Caitlin Martinez EGFR-AF [place] >60 Normal >=60 [facility] Comment on above: Performed By: #### C VDTBH #### [facility] [address] [place] [address] Dr. Caitlin Martinez EGFR-NON AF [place] >60 Normal >=60 [facility] Comment on above: Performed By: #### C VDTBH #### [facility] [address] [address] [address] Caitlin Martinez ELECTROLYTESon 01-16-2022 Anion gap [Moles/Vol] 13.6 mmol/L Normal [facility] Comment on above: Performed By: #### C VDTBH #### [facility] [address] [address] [address] Caitlin Martinez Chloride [Moles/Vol] 106 mmol/L Normal 98-107 [facility] Comment on above: Performed By: #### C VDTBH #### [facility] [address] [place] [address] Dr. Caitlin Martinez CO2 [Moles/Vol] 22.9 mmol/L Normal 21.0-32.0 [facility] Comment on above: Performed By: #### C VDTBH #### [facility] [address] [place] [address] Dr. Caitlin Martinez Potassium [Moles/Vol] 3.5 mmol/L Normal 3.5-5.1 [facility] Comment on above: Performed By: #### C VDTBH #### [facility] [address] [place] [address] Dr. Caitlin Martinez Sodium [Moles/Vol] 139 mmol/L Normal 136-145 [facility] Comment on above: Performed By: #### C VDTBH #### [facility] [address] [place] [address] Dr. Caitlin Martinez LIPASEon 01-16-2022 Lipase [Catalytic activity/Vol] 66.0 U/L Critically low 73.0-393.0 [facility] Comment on above: Performed By: #### C BC #### [facility] [address] [place] [address] Dr. Caitlin Martinez SGOTon 01-16-2022 AST [Catalytic activity/Vol] 12 U/L Critically low 15-37 [facility] Comment on above: Performed By: #### C VDTBH #### [facility] [address] [place] [address] Dr. Caitlin Martinez SGPTon 01-16-2022 ALT [Catalytic activity/Vol] 9 U/L Critically low 14-59 [facility] Comment on above: Performed By: #### C VDTBH #### [facility] [address] [place] [address] Dr. Caitlin Martinez CBC AUTO DIFFon 01-15-2022 BASO # 0.1 103/ul Normal 0.0-0.1 [facility] Comment on above: Performed By: #### C VDTBH #### [facility] [address] [place] [address] Dr. Caitlin Martinez Basophils/100 WBC (Bld) 0.4 % Normal 0.2-2.0 [facility] Comment on above: Performed By: #### C VDTBH #### [facility] [address] [address] [address] Caitlin Martinez EO # 0.2 103/ul Normal 0.0-0.7 [facility] Comment on above: Performed By: #### C VDTBH #### [facility] [address] [address] [address] Caitlin Martinez Eosinophils/100 WBC (Bld) 1.4 % Normal 0.9-7.0 [facility] Comment on above: Performed By: #### C VDTBH #### [facility] [address] [place] [address] Dr. Caitlin Martinez Erythrocyte distribution width (RBC) [Ratio] 14.1 % Normal 11.0-15.0 [facility] Comment on above: Performed By: #### C VDTBH #### [facility] [address] [place] [address] Dr. Caitlin Martinez Hematocrit (Bld) [Volume fraction] 28.4 % Critically low 36.0-48.0 [facility] Comment on above: Performed By: #### C VDTBH #### [facility] [address] [place] [address] Dr. Caitlin Martinez Hemoglobin (Bld) [Mass/Vol] 9.0 g/dL Critically low 12.0-16.0 [facility] Comment on above: Performed By: #### C VDTBH #### [facility] [address] [place] [address] Dr. Caitlin Martinez IG # 0.18 10e3/ul Critically high 0.00-0.03 [facility] Comment on above: Performed By: #### C VDTBH #### [facility] [address] [place] [address] Dr. Caitlin Martinez IG % 1.3 % Critically high 0.0-0.5 [facility] Comment on above: Performed By: #### C VDTBH #### [facility] [address] [place] [address] Dr. Caitlin Martinez LYMPH # 2.4 103/ul Normal 1.2-3.8 [facility] Comment on above: Performed By: #### C VDTBH #### [facility] [address] [address] [address] Caitlin Martinez Lymphocytes/100 WBC (Bld) 16.8 % Critically low 20.5-60.0 [facility] Comment on above: Performed By: #### C VDTBH #### [facility] [address] [place] [address] Dr. Caitlin Martinez MANUAL DIFF REQ NO Normal [facility] Comment on above: Performed By: #### C VDTBH #### [facility] [address] [place] [address] Dr. Caitlin Martinez MCH (RBC) [Entitic mass] 27.9 pg Normal 26.7-34.0 [facility] Comment on above: Performed By: #### C VDTBH #### [facility] [address] [place] [address] Dr. Caitlin Martinez MCHC (RBC) [Mass/Vol] 31.7 g/dL Normal 29.9-35.2 [facility] Comment on above: Performed By: #### C VDTBH #### [facility] [address] [place] [address] Dr. Caitlin Martinez MCV (RBC) [Entitic vol] 87.9 fL Normal 81.0-99.0 [facility] Comment on above: Performed By: #### C VDTBH #### [facility] [address] [place] [address] Dr. Caitlin Martinez MONO # 0.9 103/ul Critically high 0.3-0.8 [facility] Comment on above: Performed By: #### C VDTBH #### [facility] [address] [place] [address] Dr. Caitlin Martinez Monocytes/100 WBC (Bld) 6.7 % Normal 1.7-12.0 [facility] Comment on above: Performed By: #### C VDTBH #### [facility] [address] [place] [address] Dr. Caitlin Martinez NEUT # 10.3 103/ul Critically high 1.4-6.5 [facility] Comment on above: Performed By: #### C VDTBH #### [facility] [address] [address] [address] Caitlin Martinez Neutrophils/100 WBC (Bld) 73.4 % Normal 43.0-75.0 [facility] Comment on above: Performed By: #### C VDTBH #### [facility] [address] [address] [address] Caitlin Martinez Platelet mean volume (Bld) [Entitic vol] 9.0 fL Critically low 9.5-13.5 [facility] Comment on above: Performed By: #### C VDTBH #### [facility] [address] [place] [address] Dr. Caitlin Martinez PLT 318 103/ul Normal 150-450 [facility] Comment on above: Performed By: #### C VDTBH #### [facility] [address] [place] [address] Dr. Caitlin Martinez RBC 3.23 106/ul Critically low 4.20-5.40 [facility] Comment on above: Performed By: #### C VDTBH #### [facility] [address] [place] [address] Dr. Caitlin Martinez WBC 14.0 103/ul Critically high 4.0-11.0 [facility] Comment on above: Performed By: #### C VDTBH #### [facility] [address] [place] [address] ABD/PELVIS WO CONon 01-15 CT [...] DAVID BLACKMON Date: 2022-01-15 16:[address] [facility] CULTURE URINEon 01-15-2022 CULTURE URINE Culture Observations : LIGHT GROWTH OF MIXED GENITAL COSME. NO POTENTIAL PATHOGENS SEEN. Normal [facility] Comment on above: Performed By: #### U RCX #### [facility] [address] [place] [address] Dr. Caitlin Martinez UA (CLEAN/CATCH) FOOD SAFETY MANAGER/MICRO I F IND.on 01-15-2022 Bilirubin Ql (U) Negative Normal NEGATIVE [facility] Comment on above: Performed By: #### C BC #### [facility] [address] [place] [address] Dr. Caitlin Martinez Clarity (U) CLEAR Normal CLEAR [facility] Comment on above: Performed By: #### C BC #### [facility] [address] [place] [address] Dr. Caitlin Martinez Color (U) LT. YELLOW Normal YELLOW [facility] Comment on above: Performed By: #### C BC #### [facility] [address] [place] [address] Dr. Caitlin Martinez Glucose Ql (U) Negative Normal NEGATIVE [facility] Comment on above: Performed By: #### C BC #### [facility] [address] [place] [address] Dr. Caitlin Martinez Hemoglobin Ql (U) Negative Normal NEGATIVE [facility] Comment on above: Performed By: #### C BC #### [facility] [address] [place] [address] Dr. Caitlin Martinez Ketones Ql (U) Negative Normal NEGATIVE [facility] Comment on above: Performed By: #### C BC #### [facility] [address] [place] [address] Dr. Caitlin Martinez LEUKOCYTES TRACE Abnormal NEGATIVE [facility] Comment on above: Performed By: #### C BC #### [facility] [address] [place] [address] Dr. Caitlin Martinez Nitrite Ql (U) Negative Normal NEGATIVE [facility] Comment on above: Performed By: #### C BC #### [facility] [address] [place] [address] Dr. Caitlin Martinez pH (U) 7.0 [pH] Normal 5-9 [facility] Comment on above: Performed By: #### C BC #### [facility] [address] [place] [address] Dr. Caitlin Martinez SPEC GRAVITY 1.010 Normal 1.005-<=1.025 [facility] Comment on above: Performed By: #### C BC #### [facility] [address] [place] [address] Dr. Caitlin Martinez UA PROTEIN Negative Normal NEGATIVE/ TRACE [facility] Comment on above: Performed By: #### C BC #### [facility] [address] [place] [address] Dr. Caitlin Martinez UR MICRO IND INDICATED Normal [facility] Comment on above: Performed By: #### C BC #### [facility] [address] [place] [address] Dr. Caitlin Martinez Urobilinogen Qn (U) 0.2 {Barbara'U}/dL Normal 0.2 - 1. 0 [facility] Comment on above: Performed By: #### C BC #### [facility] [address] [place] [address] Dr. Caitlin Martinez URINE MICROSCOPIC ONLYon BACTERIA MODERATE Abnormal NONE SEEN [facility] Comment on above: Performed By: #### C BC #### [facility] [address] [place] [address] Dr. Caitlin Martinez Bacteria identified Cx Nom (U) INDICATED Normal [facility] Comment on above: Performed By: #### C BC #### [facility] [address] [place] [address] Dr. Caitlin Martinez CAST NONE SEEN Normal NONE SEEN [facility] Comment on above: Performed By: #### C BC #### [facility] [address] [place] [address] Dr. Caitlin Martinez Crystals LM Nom (Urine sed) NONE SEEN Normal NONE SEEN [facility] Comment on above: Performed By: #### C BC #### [facility] [address] [place] [address] Dr. Caitlin Martinez Epithelial cells LM Ql (Urine sed) MODERATE Abnormal NONE SEEN /RARE [facility] Comment on above: Performed By: #### C BC #### [facility] [address] [place] [address] Dr. Caitlin Martinez MUCOUS NONE SEEN Normal NONE SEEN [facility] Comment on above: Performed By: #### C BC #### [facility] [address] [place] [address] Dr. Caitlin Martinez RBC NONE SEEN Abnormal 0-[address] [facility] Comment on above: Performed By: #### C BC #### [facility] [address] [place] [address] Dr. Caitlni Martinez WBC 2-5 Abnormal NONE SEEN [facility] Comment on above: Performed By: #### C BC #### [facility] [address] [place] [address] Dr. Caitlin Martinez US APPENDIXon 01-15-2022 US [...] DAVID BLACKMON Date: 2022-01-15 14:[address] [facility] US PREG GROWTHon 01-15-2022 US PREG [...] DAVID BLACKMON Date: 2022-01-15 10:[address] [facility] US PREG PLACENTAon US PREG PLACENTA [...] DAVID BLACKMON Date: 2022-01-15 10:[address] [facility] UA (CLEAN/CATCH) FOOD SAFETY MANAGER/MICRO I F IND.on 12-29-2021 Bilirubin Ql (U) Negative Normal NEGATIVE [facility] Comment on above: Performed By: #### C BC #### [facility] [address] [place] [address] Dr. Caitlin Martinez Clarity (U) CLEAR Normal CLEAR [facility] Comment on above: Performed By: #### C BC #### [facility] [address] [place] [address] Dr. Caitlin Martinez Color (U) LT. YELLOW Normal YELLOW [facility] Comment on above: Performed By: #### C BC #### [facility] [address] [place] [address] Dr. Caitlin Martinez Glucose Ql (U) Negative Normal NEGATIVE [facility] Comment on above: Performed By: #### C BC #### [facility] [address] [place] [address] Dr. Caitlin Martinez Hemoglobin Ql (U) Negative Normal NEGATIVE [facility] Comment on above: Performed By: #### C BC #### [facility] [address] [place] [address] Dr. Caitlin Martinez Ketones Ql (U) Negative Normal NEGATIVE [facility] Comment on above: Performed By: #### C BC #### [facility] [address] [place] [address] Dr. Caitlin Martinez LEUKOCYTES Negative Normal NEGATIVE [facility] Comment on above: Performed By: #### C BC #### [facility] [address] [place] [address] Dr. Caitlin Martinez Nitrite Ql (U) Negative Normal NEGATIVE [facility] Comment on above: Performed By: #### C BC #### [facility] [address] [place] [address] Dr. Caitlin Martinez pH (U) 6.5 [pH] Normal 5-9 [facility] Comment on above: Performed By: #### C BC #### [facility] [address] [place] [address] Dr. Caitlin Martinez SPEC GRAVITY 1.020 Normal 1.005-<=1.025 [facility] Comment on above: Performed By: #### C BC #### [facility] [address] [place] [address] Dr. Caitlin Martinez UA PROTEIN Negative Normal NEGATIVE/ TRACE [facility] Comment on above: Performed By: #### C BC #### [facility] [address] [place] [address] Dr. Caitlin Martinez UR MICRO IND NOT INDICATED Normal [facility] Comment on above: Performed By: #### C BC #### [facility] [address] [place] [address] Dr. Caitlin Martinez Urobilinogen Qn (U) 1.0 {Barbara'U}/dL Normal 0.2 - 1. 0 [facility] Comment on above: Performed By: #### C BC #### [facility] [address] [place] [address] Dr. Caitlin Martinez US PREG CERVICAL LENGTHon [...] KIRK OATES Date: 2021-12-29 15:[address] [facility] UA (CLEAN/CATCH) FOOD SAFETY MANAGER/MICRO I F IND.on 12-18-2021 Bilirubin Ql (U) Negative Normal NEGATIVE [facility] Comment on above: Performed By: #### C BC #### [facility] [address] [place] [address] Dr. Caitlin Martinez Clarity (U) CLEAR Normal CLEAR [facility] Comment on above: Performed By: #### C BC #### [facility] [address] [place] [address] Dr. Caitlin Martinez Color (U) YELLOW Normal YELLOW [facility] Comment on above: Performed By: #### C BC #### [facility] [address] [place] [address] Dr. Caitlin Martinez Glucose Ql (U) Negative Normal NEGATIVE [facility] Comment on above: Performed By: #### C BC #### [facility] [address] [place] [address] Dr. Caitlin Martinez Hemoglobin Ql (U) Negative Normal NEGATIVE [facility] Comment on above: Performed By: #### C BC #### [facility] [address] [place] [address] Dr. Caitlin Martinez Ketones Ql (U) TRACE Abnormal NEGATIVE [facility] Comment on above: Performed By: #### C BC #### [facility] [address] [place] [address] Dr. Caitlin Martinez LEUKOCYTES Negative Normal NEGATIVE [facility] Comment on above: Performed By: #### C BC #### [facility] [address] [place] [address] Dr. Caitlin Martinez Nitrite Ql (U) Negative Normal NEGATIVE [facility] Comment on above: Performed By: #### C BC #### [facility] [address] [place] [address] Dr. Caitlin Martinez pH (U) 6.0 [pH] Normal 5-9 [facility] Comment on above: Performed By: #### C BC #### [facility] [address] [place] [address] Dr. Caitlin Martinez SPEC GRAVITY 1.025 Normal 1.005-<=1.025 [facility] Comment on above: Performed By: #### C BC #### [facility] [address] [place] [address] Dr. Caitlin Martinez UA PROTEIN Negative Normal NEGATIVE/ TRACE [facility] Comment on above: Performed By: #### C BC #### [facility] [address] [place] [address] Dr. Caitlin Martinez UR MICRO IND NOT INDICATED Normal [facility] Comment on above: Performed By: #### C BC #### [facility] [address] [place] [address] Dr. Caitlin Martinez Urobilinogen Qn (U) 4 {Barbara'U}/dL Abnormal 0.2 - 1.0 [facility] Comment on above: Performed By: #### C BC #### [facility] [address] [place] [address] Dr. Caitlin Martinez RHOGAMon 11-28-2021 RHOGAM Status Information Issued Quantity 1 Product ID Rh Immune Globulin Lot Number [id number] Issue Date/Time [id number] Normal [facility] Comment on above: Performed By: #### I HORACIO #### [facility] [address] [place] [address] Dr. Caitlin Martinez TYPE AND SCREENon 11-27-2021 TYPE AND SCREEN Negative Normal [facility] Comment on above: Performed By: #### T NS #### [facility] [address] [place] [address] Dr. Caitlin Martienz CULTURE URINEon 11-23-2021 CULTURE URINE Culture Observations : No growth Normal [facility] Comment on above: Performed By: #### I HORACIO #### [facility] [address] [place] [address] Dr. Caitlin Martinez UA (CLEAN/CATCH) FOOD SAFETY MANAGER/MICRO I F IND.on 11-23-2021 Bilirubin Ql (U) Negative Normal NEGATIVE [facility] Comment on above: Performed By: #### U RCX #### [facility] [address] [place] [address] Dr. Caitlin Martinez Clarity (U) CLEAR Normal CLEAR [facility] Comment on above: Performed By: #### U RCX #### [facility] [address] [place] [address] Dr. Caitlin Martinez Color (U) LT. YELLOW Normal YELLOW [facility] Comment on above: Performed By: #### U RCX #### [facility] [address] [place] [address] Dr. Caitlin Martinez Glucose Ql (U) Negative Normal NEGATIVE [facility] Comment on above: Performed By: #### U RCX #### [facility] [address] [place] [address] Dr. Caitlin Martinez Hemoglobin Ql (U) Negative Normal NEGATIVE [facility] Comment on above: Performed By: #### U RCX #### [facility] [address] [place] [address] Dr. Caitlin Martinez Ketones Ql (U) Negative Normal NEGATIVE [facility] Comment on above: Performed By: #### U RCX #### [facility] [address] [place] [address] Dr. Caitlin Martinez LEUKOCYTES SMALL Abnormal NEGATIVE [facility] Comment on above: Performed By: #### U RCX #### [facility] [address] [place] [address] Dr. Caitlin Martinez Nitrite Ql (U) Negative Normal NEGATIVE [facility] Comment on above: Performed By: #### U RCX #### [facility] [address] [place] [address] Dr. Caitlin Martinez pH (U) 6.5 [pH] Normal 5-9 [facility] Comment on above: Performed By: #### U RCX #### [facility] [address] [place] [address] Dr. Caitlin Martinez SPEC GRAVITY 1.010 Normal 1.005-<=1.025 [facility] Comment on above: Performed By: #### U RCX #### [facility] [address] [place] [address] Dr. Caitlin Martinez UA PROTEIN Negative Normal NEGATIVE/ TRACE [facility] Comment on above: Performed By: #### U RCX #### [facility] [address] [place] [address] Dr. Caitlin Martinez UR MICRO IND INDICATED Normal [facility] Comment on above: Performed By: #### U RCX #### [facility] [address] [place] [address] Dr. Caitlin Martinez Urobilinogen Qn (U) 0.2 {Barbara'U}/dL Normal 0.2 - 1. 0 [facility] Comment on above: Performed By: #### U RCX #### [facility] [address] [place] [address] Dr. Caitlin Martinez URINE MICROSCOPIC ONLYon BACTERIA TRACE Abnormal NONE SEEN [facility] Comment on above: Performed By: #### U RCX #### [facility] [address] [place] [address] Dr. Caitlin Martinez Bacteria identified Cx Nom (U) INDICATED Normal [facility] Comment on above: Performed By: #### U RCX #### [facility] [address] [place] [address] Dr. Caitlin Martinez CAST SEEN Abnormal NONE SEEN [facility] Comment on above: Performed By: #### U RCX #### [facility] [address] [place] [address] Dr. Caitlin Martinez Crystals LM Nom (Urine sed) SEEN Abnormal NONE SEEN [facility] Comment on above: Performed By: #### U RCX #### [facility] [address] [place] [address] Dr. Caitlin Martinez Epithelial cells LM Ql (Urine sed) RARE Normal NONE SEEN /RARE [facility] Comment on above: Performed By: #### U RCX #### [facility] [address] [place] [address] Dr. Caitlin Martinez MUCOUS TRACE Abnormal NONE SEEN [facility] Comment on above: Performed By: #### U RCX #### [facility] [address] [place] [address] Dr. Caitlin Martinez RBC 0-2 Normal 0-2 [facility] Comment on above: Performed By: #### U RCX #### [facility] [address] [place] [address] Dr. Caitlin Martinez WBC 2-5 Abnormal NONE SEEN [facility] Comment on above: Performed By: #### U RCX #### [facility] [address] [place] [address] Dr. Caitlin Martinez GLUCOSE - 1HRon 11-06-2021 Glucose [Mass/Vol] 131 mg/dL Critically high 74-106 [facility] [place] Comment on above: Performed By: #### I HORACIO #### [facility] [address] [place] [address] Dr. Caitlin Martinez HEMOGRAM AND PLATELon 2021 Hematocrit (Bld) [Volume fraction] 34.2 % Critically low 36.0-48.0 [facility] Comment on above: Performed By: #### C BC #### [facility] [address] [place] [address] Dr. Caitlin Martinez Hemoglobin (Bld) [Mass/Vol] 11.3 g/dL Critically low 12.0-16.0 [facility] Comment on above: Performed By: #### C BC #### [facility] [address] [place] [address] Dr. Caitlin Martinez MCH (RBC) [Entitic mass] 31.7 pg Normal 26.7-34.0 [facility] Comment on above: Performed By: #### C BC #### [facility] [address] [place] [address] Dr. Caitlin Martinez MCHC (RBC) [Mass/Vol] 33.0 g/dL Normal 29.9-35.[address] [facility] Comment on above: Performed By: #### C BC #### [facility] [address] [place] [address] Dr. Caitlin Martinez MCV (RBC) [Entitic vol] 96.1 fL Normal 81.0-99.0 [facility] Comment on above: Performed By: #### C BC #### [facility] [address] [place] [address] Dr. Caitlin Martinez PLT 372 103/ul Normal 150-450 [facility] Comment on above: Performed By: #### C BC #### [facility] [address] [place] [address] Dr. Caitlin Martinez RBC 3.56 106/ul Critically low 4.20-5.40 [facility] Comment on above: Performed By: #### C BC #### [facility] [address] [place] [address] Dr. Caitlin Martinez WBC 10.1 103/ul Normal 4.0-11.0 [facility] Comment on above: Performed By: #### C BC #### [facility] [address] [place] [address] Dr. Caitlin Martinez CHLAMYDIA/GONOCOCCUS JONATAN (SW AB/URINE/PAPon 10-31-2021 Chlamydia trachomatis, JONATAN Negative Normal Negative [facility] Comment on above: Performed By: #### C BC #### [facility] [address] [place] [address] Dr. Caitlin Martinez Neisseria gonorrhoeae, JONATAN Negative Normal Negative [facility] Comment on above: Performed By: #### C BC #### [facility] [address] [place] [address] Dr. Caitlin Martinez VAGINITIS/VAGINOSIS DNA PROB Paramjit 10-29-2021 Selena species Negative Normal Negative [facility] Comment on above: Performed By: #### U RCX #### [facility] [address] [address] [address] Caitlin Martinez Gardnerella vaginalis Negative Normal Negative [facility] Comment on above: Performed By: #### U RCX #### [facility] [address] [address] [address] Caitlin Martinez Trichomonas vaginalis Negative Normal Negative [facility] Comment on above: Performed By: #### U RCX #### [facility] [address] [place] [address] Dr. Caitlin Martinez US PREG INCOMPLETE ANATOMYon [...] DAVID BLACKMON Date: 2021-10-26 12:[address] [facility] CBC W MANUAL DIFFon 10-25-19 22 ATYPICAL LYMPH # Normal [facility] Comment on above: Performed By: #### U RCX #### [facility] [address] [place] [address] Dr. Caitlin Martinez ATYPICAL LYMPH % Normal [facility] Comment on above: Performed By: #### U RCX #### [facility] [address] [place] [address] Dr. Caitlin Martinez BAND # 0.1 103/ul Normal 0.0-0.[address] [facility] Comment on above: Performed By: #### U RCX #### [facility] [address] [place] [address] Dr. Caitlin Martinez BAND % 1 % Normal 0-[address] [facility] Comment on above: Performed By: #### U RCX #### [facility] [address] [place] [address] Dr. Caitlin Martinez BASOM # 0.00 103/ul Normal 0.00-0.10 [facility] Comment on above: Performed By: #### U RCX #### [facility] [address] [place] [address] Dr. Caitlin Martinez BASOM % 0.0 % Critically low 0.2-2.0 [facility] Comment on above: Performed By: #### U RCX #### [facility] [address] [place] [address] Dr. Caitlin Martinez BLAST # Normal [facility] Comment on above: Performed By: #### U RCX #### [facility] [address] [place] [address] Dr. Caitlin Martinez BLAST % Normal [facility] Comment on above: Performed By: #### U RCX #### [facility] [address] [place] [address] Dr. Caitlin Martinez CORRECTED WBC Normal 4.0-11.0 [facility] Comment on above: Performed By: #### U RCX #### [facility] [address] [place] [address] Dr. Caitlin Martinez EOS # 0.12 103/ul Normal 0.00-0.70 [facility] Comment on above: Performed By: #### U RCX #### [facility] [address] [place] [address] Dr. Caitlin Martinez EOS% 1.0 % Normal 0.9-7.0 [facility] Comment on above: Performed By: #### U RCX #### [facility] [address] [place] [address] Dr. Caitlin Martinez HCT 31.5 % Critically low 36.0-48.0 [facility] Comment on above: Performed By: #### U RCX #### [facility] [address] [place] [address] Dr. Caitlin Martinez HGB 10.5 g/dl Critically low 12.0-16.0 [facility] Comment on above: Performed By: #### U RCX #### [facility] [address] [place] [address] Dr. Caitlin Martinez LYMPHM # 0.37 103/ul Critically low 1.20-3.80 [facility] Comment on above: Performed By: #### U RCX #### [facility] [address] [address] [address] Caitlin Martinez LYMPHM% 3.0 % Critically low 20.5-60.0 [facility] Comment on above: Performed By: #### U RCX #### [facility] [address] [address] [address] Caitlin Martinez MCH 31.8 pg Normal 26.7-34.0 [facility] Comment on above: Performed By: #### U RCX #### [facility] [address] [place] [address] Dr. Caitlin Martinez MCHC 33.3 g/dl Normal 29.9-35.[address] [facility] Comment on above: Performed By: #### U RCX #### [facility] [address] [place] [address] Dr. Caitlin Martinez MCV 95.5 fL Normal 81.0-99.0 [facility] Comment on above: Performed By: #### U RCX #### [facility] [address] [place] [address] Dr. Caitlin Martinez METAMYELOCYTE # Normal [facility] Comment on above: Performed By: #### U RCX #### [facility] [address] [place] [address] Dr. Caitlin Martinez METAMYELOCYTE % Normal [facility] Comment on above: Performed By: #### U RCX #### [facility] [address] [place] [address] Dr. Caitlin Martinez MONOM# 0.73 103/ul Normal 0.30-0.[address] [facility] Comment on above: Performed By: #### U RCX #### [facility] [address] [place] [address] Dr. Caitlin Martinez MONOM% 6.0 % Normal 1.7-12.0 [facility] Comment on above: Performed By: #### U RCX #### [facility] [address] [address] [address] Caitlin Martinez MPV 9.5 fL Normal 9.5-13.5 [facility] Comment on above: Performed By: #### U RCX #### [facility] [address] [address] [address] Caitlin Martinez MYELOCYTE # Normal [facility] Comment on above: Performed By: #### U RCX #### [facility] [address] [address] [address] Caitlin Martinez MYELOCYTE % Normal [facility] Comment on above: Performed By: #### U RCX #### [facility] [address] [place] [address] Dr. Caitlin Martinez NRBC Normal [facility] Comment on above: Performed By: #### U RCX #### [facility] [address] [place] [address] Dr. Caitlin Martinez PLT 275 103/ul Normal 150-450 [facility] Comment on above: Performed By: #### U RCX #### [facility] [address] [address] [address] Caitlin Martinez RBC 3.30 106/ul Critically low 4.20-5.40 [facility] Comment on above: Performed By: #### U RCX #### [facility] [address] [place] [address] Dr. Caitlin Martinez RDW 13.6 % Normal 11.0-15.[address] [facility] Comment on above: Performed By: #### U RCX #### [facility] [address] [address] [address] Caitlin Martinez SEG # 10.86 103/ul Critically high 1.40-6.50 [facility] Comment on above: Performed By: #### U RCX #### [facility] [address] [place] [address] Dr. Caitlin Martinez SEG % 89.0 % Critically high 43.0-75.0 [facility] Comment on above: Performed By: #### U RCX #### [facility] [address] [place] [address] Dr. Caitlin Martinez WBC 12.2 103/ul Critically high 4.0-11.0 [facility] Comment on above: Performed By: #### U RCX #### [facility] [address] [place] [address] Dr. Caitlin Martinez ER URINE PROFILEon 2 Bilirubin Ql (U) Negative Normal NEGATIVE [facility] Comment on above: Performed By: #### C VDTBH #### [facility] [address] [place] [address] Dr. Caitlin Martinez Clarity (U) SL CLOUDY Abnormal CLEAR [facility] Comment on above: Performed By: #### C VDTBH #### [facility] [address] [place] [address] Dr. Caitlin Martinez Color (U) YELLOW Normal YELLOW [facility] Comment on above: Performed By: #### C VDTBH #### [facility] [address] [place] [address] Dr. Caitlin Martinez ERUAHNadine A micrscopic examination will be performed if indicated. Normal [facility] Comment on above: Performed By: #### C VDTBH #### [facility] [address] [place] [address] Dr. Caitlin Martinez Glucose Ql (U) Negative Normal NEGATIVE [facility] Comment on above: Performed By: #### C VDTBH #### [facility] [address] [place] [address] Dr. Caitlin Martinez Hemoglobin Ql (U) Negative Normal NEGATIVE [facility] Comment on above: Performed By: #### C VDTBH #### [facility] [address] [place] [address] Dr. Caitlin Martinez Ketones Ql (U) >=80 Abnormal NEGATIVE [facility] Comment on above: Performed By: #### C VDTBH #### [facility] [address] [place] [address] Dr. Caitlin Martinez LEUKOCYTES Negative Normal NEGATIVE [facility] Comment on above: Performed By: #### C VDTBH #### [facility] [address] [place] [address] Dr. Caitlin Martinez Nitrite Ql (U) Negative Normal NEGATIVE [facility] Comment on above: Performed By: #### C VDTBH #### [facility] [address] [place] [address] Dr. Caitlin Martinez pH (U) 6.0 [pH] Normal 5-[address] [facility] Comment on above: Performed By: #### C VDTB #### [facility] [address] [place] [address] Dr. Caitlin Martinez SPEC GRAVITY 1.020 Normal 1.005-<=1.025 [facility] Comment on above: Performed By: #### C VDTB #### [facility] [address] [place] [address] Dr. Caitlin Martinez UA PROTEIN Negative Normal NEGATIVE/ TRACE [facility] Comment on above: Performed By: #### C VDTBH #### [facility] [address] [place] [address] Dr. Caitlin Martinez UR MICRO IND NOT INDICATED Normal [facility] Comment on above: Performed By: #### C VDTBH #### [facility] [address] [place] [address] Dr. Caitlin Martinez Urobilinogen Qn (U) 1.0 {Barbara'U}/dL Normal 0.2 - 1. 0 [facility] Comment on above: Performed By: #### C VDTBH #### [facility] [address] [place] [address] Dr. Caitlin Martinez INFLUENZA A AND B AGon 10-[facility]OW Normal [facility] Comment on above: Result Comment: Nega tive for Flu B protein antigen. Infection due to Flu B cannot be ruled out. Flu B antigen in the sample may be below the detection limit of the test. Performed By: #### C VDTBH #### [facility] [address] [place] [address] Dr. Caitlin Martinez INFLUENZA A AG Positive Abnormal NEGATIVE SEE COMMENT [facility] Comment on above: Performed By: #### C VDTBH #### [facility] [address] [place] [address] Dr. Caitlin Martinez INFLUENZA B AG Negative Normal NEGATIVE SEE COMMENT [facility] Comment on above: Performed By: #### C VDTBH #### [facility] [address] [place] [address] Dr. Caitlin Martinez INFLUPOSH SEE BELOW Normal [facility] Comment on above: Result Comment: NOTE : Live attenuated influenzae vaccine viruses can cause a positive result for a rapid influenza diagnostic test if administered up to 7 days prior to rapid testing. Performed By: #### C VDTBH #### [facility] [address] [place] [address] Dr. Caitlin Martinez INTERNAL CONTROLS Within Normal Limits Normal Wi thin Normal Limits [facility] Comment on above: Performed By: #### C VDTBH #### [facility] [address] [place] [address] Dr. Caitlin Martinez PROF CHEM 8 (BAS METB)on Anion gap [Moles/Vol] 14.4 mmol/L Normal [facility] Comment on above: Performed By: #### D IRCMB, ABID #### [facility] [address] [place] [address] Dr. Caitlin Martinez Calcium [Mass/Vol] 8.4 mg/dL Critically low 8.5-10.1 [facility] Comment on above: Performed By: #### D IRCMB, ABID #### [facility] [address] [place] [address] Dr. Caitlin Martinez Chloride [Moles/Vol] 101 mmol/L Normal 98-107 [facility] Comment on above: Performed By: #### D IRCMB, ABID #### [facility] [address] [place] [address] Dr. Caitlin Martinez CO2 [Moles/Vol] 19.7 mmol/L Critically low 21.0-32.0 [facility] Comment on above: Performed By: #### D IRCMB, ABID #### [facility] [address] [place] [address] Dr. Caitlin Martinez Creatinine [Mass/Vol] 0.55 mg/dL Normal 0.55-1.02 [facility] Comment on above: Performed By: #### D IRCMB, ABID #### [facility] [address] [address] [address] Caitlin Martinez EGFR-AF [place] >60 Normal >=60 [facility] Comment on above: Performed By: #### D IRCMB, ABID #### [facility] [address] [address] [address] Caitlin Martinez EGFR-NON AF [place] >60 Normal >=60 [facility] Comment on above: Performed By: #### D IRCMB, ABID #### [facility] [address] [place] [address] Dr. Caitlin Martinez Glucose [Mass/Vol] 91 mg/dL Normal 74-106 [facility] Comment on above: Performed By: #### D IRCMB, ABID #### [facility] [address] [place] [address] Dr. Caitlin Martinez Potassium [Moles/Vol] 3.1 mmol/L Critically low 3.5-5.1 [facility] Comment on above: Performed By: #### D IRCMB, ABID #### [facility] [address] [place] [address] Dr. Caitlin Martinez Sodium [Moles/Vol] 132 mmol/L Critically low 136-145 Th [facility] Comment on above: Performed By: #### D IRCMB, ABID #### [facility] [address] [place] [address] Dr. Caitlin Martinez Urea nitrogen [Mass/Vol] 7.0 mg/dL Normal 7.0-18.0 [facility] Comment on above: Performed By: #### D IRCMB, ABID #### [facility] [address] [place] [address] Dr. Caitlin Martinez Urea nitrogen/Creatinine [Mass ratio] 12.7 mg/mg Normal [facility] Comment on above: Performed By: #### D IRCMB, ABID #### [facility] [address] [address] Dr. Caitlin Martinez US PREG ANATOMY SINGLEon [...] by: DAVID BLACKMON Date: 2021-09-28 09:17 Normal [facility] CHEMISTRYOrdered By: SYSTEM SYSTEM on 06-21-2021 [place] [address] m[IU]/mL High 1 - 3 mIU/mL [facility] Remisol XR LUMBAR [...] gas pattern is nonobstructive. There is a xtjswvwc-lz-tohcf amount of stool burden. IMPRESSION: No malalignment. No acute compression deformity. Djfhtihb-bf-txnta amount of stool burden. [employer] Workstation ID: [id number] Dictated by: LUBA GARCÍA on [facility] Mar 05, 2020 4:09:51 PM EDT Transcribed by: KELVIN GUADALUPE on [facility] Mar 05, 2020 4:17:18 PM EDT Finalized by: LUBA GARCÍA on [facility] Mar 05, 2020 7:52:11 PM EDT [facility] Comment on above: Order Comment: Injur y/Trauma or Illness?:Illness/Other How long have you had these symptoms (acute/chronic)?:Chronic Reason for exam?:low back pain History of cancer?:n Surgeries, chemotherapy, or radiation?:n Type of Exam?:Initial Additional signs and symptoms?:fibromyalgia XR Lumbar Spine 2-3 Views (S tandard)on 03-05-2020 No malalignment. No acute compression deformity. Jlrrtkrg-fq-ufbyv amount of stool burden. [employer] Workstation ID: [id number] [facility] EXAMINATION: XR LUMBAR SPINE 2-3 [...] gas pattern is nonobstructive. There is a xturrjja-ie-qnclt amount of stool burden. [facility] Interface, Rad In Jose Luis Speechq [...] gas pattern is nonobstructive. There is a luthifow-zf-sahie amount of stool burden. IMPRESSION: No malalignment. No acute compression deformity. Cmcutzqu-do-jvpbv amount of stool burden. [employer] Workstation ID: [id number] [facility] CNOVon 10-28-2018 CNOV Office Visit (OLVIN ) SANDY GODINEZ ([id number]) 1995 F Date Time Provider Department 10/28/18 [...] Garcia MD REFERRING PROVIDER: Farrah Garcia MD [address] [facility] [id number] Consult requested for an opinion regarding the [...] TIME: 12:44 PM Referring Provider: FARRAH GARCIA [[id number]] Allergies As of Date: 10/28/2018 (No Known [...] RODRIGUEZ MD on 10/29/18 Normal [facility] PROGRESSon 10-28-2018 Protein mass conc HNO ID: [id number] Author: Warren Reddy Esa Service: ? Author Type: Physician Type: Progress Notes Filed: 10/29/2018 3:03 PM Note Text: VASCULAR SURGERY INITIAL CONSULT SERVICE DATE: 10/28/2018 SERVICE TIME: 12:44 PM PRIMARY CARE PHYSICIAN: Farrah Garcia MD REFERRING PROVIDER: Farrah Garcia MD [address] [facility] [address] Consult requested for an opinion regarding the [...] 2018 TIME: 12:44 PM Normal [facility] Vital Signs Date Time Vital Sign Value Performing Clinician Chiquis zaragoza 07-19-2023 09:31-0500 Body mass index (BMI) [Ratio] 26.79 kg/m2 [facility] Nurse [facility] 07-19-2023 09:31-0500 Body weight 73.03 kg [facility] Nurse [facility] 07-19-2023 09:31-0500 Diastolic blood pressure 72 mm[Hg] [facility] Nurse [facility] 07-19-2023 09:31-0500 Systolic blood pressure 118 mm[Hg] [facility] Encounters Encounter Date Encounter Type Care Provider [...] End: 11-08-2023 ambulatory JOSE MIGUEL R JUSTEN [facility] Start: 10-15-2023 End: 10-15-2023 ambulatory JOSE [...] Not Available Start: 07-08-2023 ambulatory Royer Layne acility:[facility] Start: 07-02-2023 End: 07-02-2023 ambulatory [...] 06-21-2021 End: 09-19-2021 Recurring Jose Miguel CAMPUZANO [place] Start: 03-05-2020 End: 03-06-2020 Patient encounter procedure [facility] Start: 03-05-2020 End: 03-05-2020 Subsequent hospital visit by physician [facility] Work Phone: [facility] Diagnostics [...] encounter procedure 08/19/2023 11:10 AM EST Routine [facility] [address] [place] [id number] Jose Miguel Campuzano, DO [address] [place] [address] [facility] Start: 07-19-2023 End: 07-19-2024 ABO/Rh ABO/Rh Lab Routine Missed menses Expected: 07/19/2023 (Approximate), Expires: 07/19/2024 [facility] Comment on above: Expected: 07/19/2023 (Approximate), Expires: 07/19/2024 Start: 07-19-2023 End: 07-19-2024 Blood type and Indirect antibody screen panel - Blood Type and screen Lab Routine Missed menses Expected: 07/19/2023 (Approximate), Expires: 07/19/2024 [facility] Work Phone: Comment on above: Expected: 07/19/2023 (Approximate), Expires: 07/19/2024 Start: 07-19-2023 End: 07-19-2024 US Pelvis transvaginal US OB transvaginal Imaging Routine Missed menses Expected: 07/19/2023 (Approximate), Expires: 07/19/2024 [facility] Comment on above: Expected: 07/19/2023 (Approximate), Expires: 07/19/2024 Start: 02-16-2020 Influenza vaccinatio n given Sequential Influenza Vaccine (#1) [facility] Start: 2014 Hepatitis C antibody , confirmatory test Hepatitis C Screening [facility] Start: 08-31-2011 HIV screening HIV Screening [facility] Start: 08-31-2007 Vaccination for [place] papillomavirus HPV Vaccines (1 - 2-dose series) [facility] Start: 08-31-1999 History and physical examination, annual for health maintenance Wellness Visit [facility] Start: 1996 Screening for Chlamy tristan trachomatis Chlamydia Screening [facility] Start: 1996 Screening for malign ant neoplasm of cervix Pap Smear [facility] Start: 1996 Tetanus vaccination Tetanus: Every 1 0yrs [facility] Bacteria identified in Urine by Culture Urine culture Microbiology Routine Missed menses Ordered: 07/19/2023 [facility] Comment on above: Ordered: 07/19/2023 CBC W Auto Different ial panel - Blood CBC and differential Lab Routine Missed menses Ordered: 07/19/2023 [facility] Comment on above: Ordered: 07/19/2023 Hemoglobin A1c measurement Hemoglobin A1c Lab Routine Missed menses Ordered: 07/19/2023 [facility] Comment on above: Ordered: 07/19/2023 Hepatitis B virus knight rface Ag [Presence] in Serum or Plasma by Immunoassay Hepatitis B surface antigen Lab Routine Missed menses Ordered: 07/19/2023 [facility] Comment on above: Ordered: 07/19/2023 Hepatitis C virus Ab [Presence] in Serum or Plasma by Immunoassay Hepatitis C antibody Lab Routine Missed menses Ordered: 07/19/2023 [facility] Comment on above: Ordered: 07/19/2023 HIV-1/HIV-2 antigen/antibody combination immunoassay HIV-1 and HIV-2 antibodies Lab Routine Missed menses Ordered: 07/19/2023 [facility] Comment on above: Ordered: 07/19/2023 Reagin Ab [Presence] in Serum by RPR RPR Lab Routine Missed menses Ordered: 07/19/2023 [facility] Comment on above: Ordered: 07/19/2023 Rubella antibody, IgG Rubella an tibody, IgG Lab Routine Missed menses Ordered: 07/19/2023 [facility] Comment on above: Ordered: 07/19/2023 Payers Date Payer Category Payer Self-pay 2022 Medicaid [employer] [place] [id number] 2022-Present [address] [place] [address] [id number]. [id number] 1996 Unknown [id number] 2.16.840.1.528113.3.579.2.903 1996 Unknown [id number] 2.16.840.1.618928.3.579.2.593 1996 Unknown [id number] 2.16.840.1.633450.3.579.2.593 1996 Unknown [id number] 2.16.840.1.806275.3.579.2.593 1996 Unknown [id number] 2.16.840.1.688606.3.579.2.593 1996 Unknown [id number] 2.16.840.1.160661.3.579.2.593 1996 Unknown [id number] 2.16.840.1.789736.3.579.2.593 1996 Unknown [id number] 2.16.840.1.245811.3.579.2.593 1996 Unknown [id number] 2.16.840.1.470498.3.579.2.593 1996 Unknown [id number] 2.16.840.1.132736.3.579.2.593 1996 Unknown [id number] 2.16.840.1.286162.3.579.2.593 1996 Unknown [id number] 2.16.840.1.767145.3.579.2.593 1996 Unknown [id number] 2.16.840.1.201115.3.579.2.593 1996 Unknown [id number] 2.16.840.1.862911.3.579.2.593 1996 Unknown [id number] 2.16.840.1.703710.3.579.2.593 1996 Unknown [id number] 2.16.840.1.123126.3.579.2.593 1996 Unknown [id number] 2.16.840.1.905473.3.579.2.593 1996 Unknown [id number] 2.16.840.1.723577.3.579.2.593 1996 Unknown [id number] 2.16.840.1.609472.3.579.2.593 1996 Unknown [id number] 2.16.840.1.910613.3.579.2.593 1996 Unknown [id number] 2.16.840.1.199129.3.579.2.593 1996 Unknown [id number] 2.16.840.1.878954.3.579.2.593 1996 Unknown [id number] 2.16.840.1.037493.3.579.2.1286 1996 Unknown [id number] 2.16.840.1.054600.3.579.2.1286 1996 Unknown [id number] 2.16.840.1.876825.3.579.2.1259 1996 Unknown [id number] 2.16.840.1.472509.3.579.2.1259 1996 Unknown [id number] 2.16.840.1.283592.3.579.2.1259 1996 Unknown [id number] 2.16.840.1.376104.3.579.2.9 1996 Unknown [id number] 2.16.840.1.681628.3.579.2.9 1996 Unknown [id number] 2.16.840.1.330020.3.579.2.1258 1996 Unknown [id number] 2.16.840.1.825518.3.579.2.1258 1996 Unknown [id number] 2.16.840.1.611771.3.579.2.1258 1996 Unknown [id number] 2.16.840.1.918974.3.579.2.1258 1996 Unknown [id number] 2.16.840.1.267147.3.579.2.1259 1959 Unknown [id number] 1959 Unknown [id number] Unknown [employer]ERCIAL [employer]ME RCIAL MISCELLANEOUS [id number] Effective for all dates [id number] 1.2.840.993331.1.13.385.2.7.3. 990697.315 Unknown [id number] Unknown [id number] 2.16.840.1.580554.3.579.2.531 Social History Date Type Detail Facility Tobacco smoking stat [facility] Unknown if ever smoked [facility] Sex Assigned At Not on file [facility] Start: 12-07-2022 [facility] Start: 12-07-2022 Tobacco smoking status [...] Healthcare Start: 11-29-2022 Sexual orientation Heterosexual (finding) [facility] History of Present illness [...] Procedure Laterality Date DILATION AND CURETTAGE 2018 [place] TONSILLECTOMY & ADENOIDECTOMY AGE 13/> 2015 WISDOM [...] sent for nausea to pharmacy. Pt desires [place] [facility] and understands to have it done at 10 weeks along w/her labs. Follow Up: Patient is to have labs drawn at directed and return to office for initial OB appointment with provider. Patient may call office as needed with any concerns or questions. Nurse Visit Completed by: Cori Daniel MA documented in this encounter [facility] Clinical Note 01-16-2022 Note Date & Type [...] authenticated by: Cecelia FOOTE Date: 2022-01-16 21:33 [facility] Clinical Note 01-16-2022 Note Date & [...] authenticated by: Cecelia FOOTE Date: 2022-01-16 21:33 [facility] Clinical Note 01-15-2022 Note Date & [...] by: IGOR DIAZ Date: 2022-01-15 10:[address] [facility] Evaluation + Plan note Note Date & Type Note Facility Evaluation + Plan note No data available for this section [place] Evaluation note Note Date & Type Note Facility Evaluation note Diagnosis Missed menses Nausea Nausea alone documented in this encounter [facility] Discharge instructions Note Date & Type Note Facility Hospital Discharge instructions No data available for this section [place] Summary Purpose Family History No Family History Records FoundNo Family History Records FoundNo Family History Records FoundNo Family History Records FoundNo Family History Records FoundNo Family History Records FoundNo Family History Records Found Advance Directives No Advanced Directives Records FoundDocuments on File Type Date Recorded Patient Improvement Manager Expl anation Advance Directives and Livin g Will 03/05/2020 2:18 PM Assessments Diagnosis Chronic low back pain, unspecified back pain laterality, unspecified whether sciatica present Additional Source Comments INFORMATION SOURCE (unrecogn ized section and content) DATE CREATED AUTHOR 11/08/2018 [facility] DATE CREATED AUTHOR AUTHOR'S ORGANIZ ATION 03/21/2020 [facility] DATE CREATED AUTHOR AUTHOR'S ORGANIZ ATION 08/04/2022 [facility] DATE CREATED AUTHOR AUTHOR'S ORGANIZ ATION 09/06/2022 [facility] DATE CREATED AUTHOR AUTHOR'S ORGANIZ ATION 09/17/2023 [facility] DATE CREATED AUTHOR AUTHOR'S ORGANIZ ATION 11/09/2023 [facility] DATE CREATED AUTHOR AUTHOR'S ORGANIZ ATION 01/09/2024 [facility] Reason for Visit (unrecogniz ed [...] BE BASED ON THE PRIMARY CLINICAL RECORDS. [facility] [employer] [facility]. provides no warranty or guarantee of the accuracy or completeness of information in this document.
--- NOTE | 2024-01-20 10:57 | US_ITS ---
[address] [address] Patient Name: SANDY GODINEZ MRN: [id number] date: 1995 Sex: F Assigned Patient Location: US Current Patient Location: Accession/Order Number: [id number] Exam Date: 01/20/2024 10:58 Report Date: 01/20/2024 14:53 At the request of: JOSE MIGUEL BOATENG Procedure: US OB BPP w non-stress EXAMINATION: US OB BPP w non-stress HISTORY:Single vessel of umbilical cord Q27.0 COMPARISON: Ultrasound OB biophysical 01/13/2024 TECHNIQUE: Ultrasound biophysical profile was performed in the radiology department. BREATHING MOVEMENTS: 2 GROSS BODY MOVEMENTS: 2 TONE: 2 QUALITATIVE AMNIOTIC FLUID VOLUME: 2 PRESENTATION: Cephalic HEART RATE: 137 bpm AMNIOTIC FLUID VOLUME: 13.5 cm; normal range GESTATIONAL AGE: 35 weeks 3 days US/US OB BPP w non-stress IMPRESSION: Total biophysical profile score: 8 Electronically authenticated by: DAVID BLACKMON Date: 01/20/2024 14:53
--- NOTE | 2024-01-20 11:05 | US_ITS ---
[address] [address] Patient Name: SANDY GODINEZ MRN: [id number] date: 1995 Sex: F Assigned Patient Location: US Current Patient Location: Accession/Order Number: [id number] Exam Date: 01/20/2024 10:55 Report Date: 01/21/2024 08:10 At the request of: JOSE MIGUEL BOATENG Procedure: US OB growth EXAMINATION: US OB growth HISTORY: Single vessel umbilical cord Q27.0 COMPARISON: Ultrasound OB growth 12/30/2023 FINDINGS: Heart Rate: 137 bpm Amniotic Fluid Volume: 13.5 cm; normal range Number: One Position: Cephalic BIOMETRY: BPD: 8.6 cm; 34 weeks 4 days; 32% HC: 31.5 cm; 35 weeks 2 days; 17% AC: 31.2 cm; 35 weeks 1 day; 49% FL: 6.6 cm; 34 weeks 0 days; 12% EFW: 2513 g; 30% FL/AC: 21.15 FL/BPD: 76.72 HC/AC: 1.01 GESTATIONAL AGE: Age by EDC: 35 weeks 3 days NOVA by EDC: 02/21/2024 Age by US: 34 weeks 5 days NOVA by US: 02/26/2024 US/US OB growth IMPRESSION: 1. Single live intrauterine with growth detailed above. 2. Known two-vessel umbilical cord. Electronically authenticated by: DAVID BLACKMON Date: 01/21/2024 08:10
[2024-01-20 11:31] VITALS: BP 120/67; PULSE 85
== END 2024-01-20 12:01 | disposition home or self-care (01) ==
LOC: US 06:59 → FBC 10:55
PROVIDERS: PCP Nurse Practitioner Family; Visit Provider Obstetrics & Gynecology
DX: O43.113 Circumvallate placenta, third trimester (principal); O09.899 Supervision of other high risk pregnancies, unspecified trimester; O26.843 Uterine size-date discrepancy, third trimester; Q27.0 Congenital absence and hypoplasia of umbilical artery; Z3A.34 34 weeks gestation of pregnancy
CPT/HCPCS: 76816; 76818; 76820

== ENCOUNTER 2024-01-22 15:41 | Observation (INO) | payer OTHER, SELFPAY ==
[2024-01-22 16:00] VITALS: BP 116/71; PULSE 101; TEMP 36.9
[2024-01-22 17:03] LABS: Bilirubin Urine NEGATIVE (NEGATIVE); Blood Urine NEGATIVE (NEGATIVE); Clarity Urine CLEAR (CLEAR); Color Urine LT. YELLOW (YELLOW); Glucose Urine UA NEGATIVE (NEGATIVE); Ketones Urine NEGATIVE (NEGATIVE); Leukocyte Esterase Urine NEGATIVE (NEGATIVE); Nitrite Urine NEGATIVE (NEGATIVE); Protein Urine NEGATIVE (NEG/TRACE); Specific Gravity Urine 1.015 (1.005-1.025); pH Urine 7.5 (5.0-9.0)
[2024-01-22 17:06] LABS: Urine Microscopic Indicated NO
== END 2024-01-22 20:10 | disposition home or self-care (01) ==
PROVIDERS: Admitting Provider Obstetrics & Gynecology; PCP Nurse Practitioner Family; Visit Provider Obstetrics & Gynecology
DX: O47.9 False labor, unspecified (principal); Z3A.00 Weeks of gestation of pregnancy not specified
CPT/HCPCS: 59025; 81003; G0378; G0379

== ENCOUNTER 2024-01-27 07:38 | Outpatient (OUT) | payer OTHER, SELFPAY ==
--- NOTE | 2024-01-27 10:55 | US_ITS ---
[address] [address] Patient Name: SANDY GODINEZ MRN: [id number] date: 1995 Sex: F Assigned Patient Location: [facility] Current Patient Location: Accession/Order Number: [id number] Exam Date: 01/27/2024 11:00 Report Date: 01/27/2024 13:23 At the request of: JOSE MIGUEL BOATENG Procedure: US OB umbilical artery EXAMINATION: US OB umbilical artery HISTORY: Two vessel umbilical cord COMPARISON: No relevant comparison available. TECHNIQUE: Duplex Doppler evaluation of the umbilical arteries. FINDINGS: Umbilical arteries: 1 position: Cephalic presentation, longitudinal lie Heart rate: 160 bpm Proximal umbilical artery: 82/40 cm/s. Resistive index 0.51. Ratio 2.0 Mid umbilical artery: 110/56 cm/s. Resistive index 0.49. Ratio 2.0 Distal umbilical artery: 69/36 cm/s. Resistive index 0.48. Ratio 1.9 Forward flow identified throughout diastole Clinical age: 36 weeks 3 days US/US OB umbilical artery IMPRESSION: Normal exam. Class 0 Umbilical Artery: Class 0 = Normal umbilical artery blood velocity Class I = increased RI or PI, but still forward flow in diastole Class II = Absent end diastolic flow (AEDF) Class III = Reversal of end diastolic flow (REDF) Resistive Index (RI)<1 Systolic/Diastolic ratio (S:D): An S:D ratio of 2-3 after 34 wks is normal Systolic/Diastolic ratio (S:D): Age 16: 3.01 for the 10th percentile, 4.25 for the 50th percentile, 6.07 for the 90th percentile Age 20: 3.16 for the 10th percentile, 4.04 for the 50th percentile, 5.24 for the 90th percentile Age 24: 2.70 for the 10th percentile, 3.50 for the 50th percentile, 4.75 for the 90th percentile Age 28: 2.41 for the 10th percentile, 3.02 for the 50th percentile, 3.97 for the 90th percentile Age 30: 2.43 for the 10th percentile, 3.04 for the 50th percentile, 3.80 for the 90th percentile Age 32: 2.27 for the 10th percentile, 2.73 for the 50th percentile, 3.57 for the 90th percentile Age 34: 2.08 for the 10th percentile, 2.52 for the 50th percentile, 3.41 for the 90th percentile Age 36: 1.96 for the 10th percentile, 2.35 for the 50th percentile, 3.15 for the 90th percentile Age 38: 1.89 for the 10th percentile, 2.24 for the 50th percentile, 3.10 for the 90th percentile Age 40: 1.88 for the 10th percentile, 2.22 for the 50th percentile, 2.68 for the 90th percentile Age 41: 1.93 for the 10th percentile, 2.21 for the 50th percentile, 2.55 for the 90th percentile Age 42: 1.91 for the 10th percentile, 2.51 for the 50th percentile, 3.21 for the 90th percentile Uteroplacental Artery: Resistive Index (RI): Normal=<0.55 High Resistance=Bilateral notches (after 26 wks) and RI>0.55. Unilateral notches (after 26 wks) and RI>0.65 Systolic/Diastolic ratio (S:D) = 2-3 is normal after 32 weeks. Electronically authenticated by: KIRK OATES Date: 01/27/2024 13:23
--- NOTE | 2024-01-27 10:55 | US_ITS ---
[address] [address] Patient Name: SANDY GODINEZ MRN: [id number] date: 1995 Sex: F Assigned Patient Location: [facility] Current Patient Location: [facility] Accession/Order Number: [id number] Exam Date: 01/27/2024 11:00 Report Date: 01/27/2024 11:43 At the request of: JOSE MIGUEL BOATENG Procedure: US OB BPP w non-stress EXAMINATION: US OB BPP w non-stress HISTORY: Two vessel umbilical cord COMPARISON: No relevant comparison available. TECHNIQUE: Ultrasound biophysical profile was performed in the radiology department. non-reactive stress testing was performed by nursing staff in the birthing center. FINDINGS: BREATHING MOVEMENTS: 2 GROSS BODY MOVEMENTS: 2 TONE: 2 QUALITATIVE AMNIOTIC FLUID VOLUME: 2 PRESENTATION: CEPHALIC HEART RATE: 145.16 bpm AMNIOTIC FLUID VOLUME: 17.3 cm GESTATIONAL AGE: 36 weeks 3 days US/US OB BPP w non-stress IMPRESSION: Total biophysical profile score: 8 Electronically authenticated by: KIRK OATES Date: 01/27/2024 11:43
[2024-01-27 11:30] VITALS: BP 103/59; PULSE 89; TEMP 37
== END 2024-01-27 12:24 | disposition home or self-care (01) ==
LOC: US 07:38 → FBC 10:48
PROVIDERS: PCP Nurse Practitioner Family; Visit Provider Obstetrics & Gynecology
DX: O09.899 Supervision of other high risk pregnancies, unspecified trimester (principal); Z3A.36 36 weeks gestation of pregnancy
CPT/HCPCS: 36415; 76818; 76820; 87081; 87150

== ENCOUNTER 2024-01-27 19:38 | Outpatient (REF) | payer OTHER, SELFPAY ==
--- OUTSIDE RECORDS SUMMARY | 2024-01-27 19:42 | XMS_ITS | CCD ---
Author Organization [facility] Care Team Providers Care [place] Archeology Professor Name Role Phone Farrah Garcia Primary Care [...] Unavailable LAVELLE, DUARTE Primary Care Unavailable LAVELLE, DUARET Admitting Unavailable LAVELLE, DUARTE Attending Unavailable JUSTEN, [...] Thompson Attending Unavailab Royer Watts Admitting [facility]ailab [facility] Unavailable JUSTEN, JOSE [...] (1 source) Desonide Drug Allergy 9 The Repository (2 sources) Wound Dressing Adhesive Drug [...] 02-15-2022 Episodic Other aftercare (1 source) Other correction (current) 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; 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: [OTH CORRECTION CURRENT DRUG THERAPY] Onset: 02-05-2022 Episodic Other [...] WITH AUTO DIFFon BASOPHILS ABSOLUTE AUTO 0.1 [facility] Basophils/100 WBC (Bld) 0.7 % 0.2 - 2.0 % [facility] Eosinophils/100 WBC (Bld) 2.6 % 0.9 - 7.0 % [facility] Erythrocyte distribution width (RBC) [Ratio] 13.4 % 11.0 - 15.0 % [facility] Hematocrit (Bld) [Volume fraction] 39.0 % 36.0 - 48.0 % [facility] Hemoglobin (Bld) [Mass/Vol] 12.8 g/dL 12.0 - 16.0 g/dL [facility] IMMATURE GRANULOCYTES ABS AUTO 0.01 [facility] Immature granulocytes/100 WBC (Bld) 0.1 % 0.0 - 0.5 % [facility] LYMPHOCYTES ABSOLUTE AUTO 2.2 [facility] Lymphocytes/100 WBC (Bld) 26.1 % 20.5 - 60.0 % [facility] MCH (RBC) [Entitic mass] 28.6 pg 26.7 - 34.0 pg [facility] MCHC (RBC) [Mass/Vol] 32.8 g/dL 29.9 - 35.2 g/dL [facility] MCV (RBC) [Entitic vol] 87.2 fL 81.0 - 99.0 fL [facility] MONOCYTES ABSOLUTE AUTO 0.5 [facility] Monocytes/100 WBC (Bld) 5.7 % 1.7 - 12.0 % [facility] NEUTROPHILS ABSOLUTE AUTO 5.5 [facility] Neutrophils/100 WBC (Bld) 64.8 % 43.0 - 75.0 % [facility] Platelet mean volume (Bld) [Entitic vol] 10.1 fL 9.5 - 13.5 fL [facility] TBH EO # 0.2 [facility] PLT 340 [facility] RBC 4.47 [facility] WBC 8.4 [facility] HCG ( test) Ql (U)o n 07-19-2023 Interpretation and review of laboratory results Abnormal [facility] Preg Test, Ur Positive [facility] Urinalysis macro (dipstick) panel (U)on 07-19-2023 Bilirubin, UA Negative Negative - 4(70) +++ mg/dL [facility] Blood, UA Positive Negative - 50 Anselmo/mcL [facility] Comment on above: moderate Clarity, UA Clear [facility] Color, UA Sedan [facility] Glucose, UA Negative Negative - 1999(110) ++++ mg/dL [facility] Interpretation and review of laboratory results Abnormal [facility] Ketones, UA Positive Negative - 160(16) ++++ mg/dL [facility] Comment on above: trace Leukocytes, UA Positive Negative - 500+++ Monik/mcL [facility] Comment on above: small Nitrite, UA Negative Negative - Positive [facility] pH, UA 6.0 5 - 9 [facility] Protein, UA Positive Negative - 1999(20) ++++ mg/dL [facility] Comment on above: 30 Spec Grav, UA 1.030 1 - 1.03 [facility] Urobilinogen, UA 1.0 0.2 - 12 mg/dL [facility] In office Testingon 09-07-19 23 In office Testing [id number] 0 [id number] 1.00CD:127 Normal [facility] CBC AUTO DIFFon 07-30-2022 BASO # 0.1 103/ul Normal 0.0-0.1 [facility] Comment on above: Performed By: #### U RCX #### Laboratory [address] [place] [address] Dr. Caitlin Martinez Basophils/100 WBC (Bld) 1.1 % Normal 0.2-2.0 [facility] Comment on above: Performed By: #### U RCX #### Laboratory [address] [place] [address] Dr. Caitlin Martinez EO # 0.3 103/ul Normal 0.0-0.7 [facility] Comment on above: Performed By: #### U RCX #### Laboratory [address] [place] [address] Dr. Caitlin Martinez Eosinophils/100 WBC (Bld) 4.7 % Normal 0.9-7.0 [facility] Comment on above: Performed By: #### U RCX #### Laboratory [address] [place] [address] Dr. Caitlin Martinez Erythrocyte distribution width (RBC) [Ratio] 14.7 % Normal 11.0-15.0 [facility] Comment on above: Performed By: #### U RCX #### Laboratory [address] [place] [address] Dr. Caitlin Martinez Hematocrit (Bld) [Volume fraction] 39.3 % Normal 36.0-48.0 [facility] Comment on above: Performed By: #### U RCX #### Laboratory [address] [place] [address] Dr. Caitlin Martinez Hemoglobin (Bld) [Mass/Vol] 12.7 g/dL Normal 12.0-16.0 [facility] Comment on above: Performed By: #### U RCX #### Laboratory [address] [place], [place] [id number] Dr. Caitlin Martinez IG # 0.02 10e3/ul Normal 0.00-0.03 [facility] Comment on above: Performed By: #### U RCX #### Laboratory [address] [place] [address] Dr. Caitlin Martinez IG % 0.3 % Normal 0.0-0.5 [facility] Comment on above: Performed By: #### U RCX #### Laboratory [address] [place] [address] Dr. Caitlin Martinez LYMPH # 2.5 103/ul Normal 1.2-3.8 [facility] Comment on above: Performed By: #### U RCX #### Laboratory [address] [place] [address] Dr. Caitlin Martinez Lymphocytes/100 WBC (Bld) 34.5 % Normal 20.5-60.0 [facility] Comment on above: Performed By: #### U RCX #### Laboratory [address] [place] [address] Dr. Caitlin Martinez MANUAL DIFF REQ NO Normal [facility] Comment on above: Performed By: #### U RCX #### Laboratory [address] [place] [address] Dr. Caitlin Martinez MCH (RBC) [Entitic mass] 27.3 pg Normal 26.7-34.0 [facility] Comment on above: Performed By: #### U RCX #### Laboratory [address] [place] [address] Dr. Caitlin Martinez MCHC (RBC) [Mass/Vol] 32.3 g/dL Normal 29.9-35.2 The Comment on above: Performed By: #### U RCX #### Laboratory [address] [place] [address] Dr. Caitlin Martinez MCV (RBC) [Entitic vol] 84.5 fL Normal 81.0-99.0 [facility] Comment on above: Performed By: #### U RCX #### Laboratory [address] [place] [address] Dr. Caitlin Martinez MONO # 0.5 103/ul Normal 0.3-0.8 [facility] Comment on above: Performed By: #### U RCX #### Laboratory [address] [place] [address] Dr. Caitlin Martinez Monocytes/100 WBC (Bld) 7.3 % Normal 1.7-12.0 [facility] Comment on above: Performed By: #### U RCX #### Laboratory [address] [place] [address] Dr. Caitlin Martinez NEUT # 3.8 103/ul Normal 1.4-6.5 [facility] Comment on above: Performed By: #### U RCX #### Laboratory [address] [place] [address] Dr. Caitlin Martinez Neutrophils/100 WBC (Bld) 52.1 % Normal 43.0-75.0 [facility] Comment on above: Performed By: #### U RCX #### Laboratory [address] [place] [address] Dr. Caitlin Martinez Platelet mean volume (Bld) [Entitic vol] 9.0 fL Critically low 9.5-13.5 [facility] Comment on above: Performed By: #### U RCX #### Laboratory [address] [place] [address] Dr. Caitlin Martinez PLT 368 103/ul Normal 150-450 The Comment on above: Performed By: #### U RCX #### Laboratory [address] [place] [address] Dr. Caitlin Martinez RBC 4.65 106/ul Normal 4.20-5.40 The Comment on above: Performed By: #### U RCX #### Laboratory [address] [place] [address] Dr. Caitlin Martinez WBC 7.2 103/ul Normal 4.0-11.0 The Comment on above: Performed By: #### U RCX #### Laboratory [address] [place] [address] Dr. Caitlin Martinez IRONon 07-30-2022 Iron [Mass/Vol] 43.0 ug/dL Critically low 50.0-170.[address] [facility] Comment on above: Performed By: #### U RCX #### Laboratory [address] [place] [address] Dr. Caitlin Martinez PAP ACOG PANEL 2: 22 to 30on 07-30-2022 . . Normal [facility] Comment on above: Performed By: #### U RCX #### Laboratory [address] [address] [address] Caitlin Martinez Age Gdln ACOG Testing - [facility] Comment on above: Performed By: #### U RCX #### Laboratory [address] [place] [address] Dr. Caitlin Martinez DIAGNOSIS: Comment [facility] Comment on above: Result Comment: NEGA TIVE FOR INTRAEPITHELIAL LESION OR MALIGNANCY. Performed By: #### U RCX #### Laboratory [address] [place] [address] Dr. Caitlin Martinez Methodology: Comment [facility] Comment on above: Result Comment: This liquid based ThinPrep(R) pap test was screened with the use of an image guided system. Performed By: #### U RCX #### Laboratory [address] [place] [address] Dr. Caitlin Martinez Note: Comment [facility] Comment on above: Result Comment: The Pap smear is a screening test designed to aid in the detection of premalignant and malignant conditions of the uterine cervix. It is not a diagnostic procedure and should not be used as the sole means of detecting cervical cancer. Both false-positive and false-negative reports do occur. . Performed By: #### U RCX #### Laboratory [address] [address] [address] Caitlin Martinez Performed by: Comment [facility] Comment on above: Result Comment: Bhavna Cormier, Hogshead Inspector (ASCP) Performed By: #### U RCX #### Laboratory [address] [place] [address] Dr. Caitlin Martinez Reflex Criteria: Comment [facility] Comment on above: Result Comment: The HPV DNA reflex criteria were not met with this specimen result therefore, no HPV testing was performed. . Performed By: #### U RCX #### Laboratory [address] [place] [address] Dr. Caitlin Martinez Specimen adequacy: Comment Normal [facility] Comment on above: Result Comment: Sati sfactory for evaluation. Endocervical and/or squamous metaplastic cells (endocervical component) are present. Performed By: #### U RCX #### Laboratory [address] [place] [address] Dr. Caitlin Martinez INSULINon 04-19-2022 Insulin 9.1 uIU/mL Normal 2.6-24.9 [facility] Comment on above: Performed By: #### I HORACIO #### Laboratory [address] [place] [address] Dr. Caitlin Martinez CBC AUTO DIFFon 04-18-2022 BASO # 0.1 103/ul Normal 0.0-0.1 [facility] Comment on above: Performed By: #### U RCX #### Laboratory [address] [place] [address] Dr. Caitlin Martinez Basophils/100 WBC (Bld) 1.0 % Normal 0.2-2.0 [facility] Comment on above: Performed By: #### U RCX #### Laboratory [address] [place] [address] Dr. Caitlin Martinez EO # 0.3 103/ul Normal 0.0-0.7 [facility] Comment on above: Performed By: #### U RCX #### Laboratory [address] [place] [address] Dr. Caitlin Martinez Eosinophils/100 WBC (Bld) 4.1 % Normal 0.9-7.0 [facility] Comment on above: Performed By: #### U RCX #### Laboratory [address] [place] [address] Dr. Caitlin Martinez Erythrocyte distribution width (RBC) [Ratio] 16.0 % Critically high 11.0-15.0 [facility] Comment on above: Performed By: #### U RCX #### Laboratory [address] [address] [address] Caitlin Martinez Hematocrit (Bld) [Volume fraction] 35.7 % Critically low 36.0-48.0 [facility] Comment on above: Performed By: #### U RCX #### Laboratory [address] [address] [address] Caitlin Martinez Hemoglobin (Bld) [Mass/Vol] 10.9 g/dL Critically low 12.0-16.0 [facility] Comment on above: Performed By: #### U RCX #### Laboratory [address] [address] [address] Caitlin Martinez IG # 0.07 10e3/ul Critically high 0.00-0.03 [facility] Comment on above: Performed By: #### U RCX #### Laboratory [address] [place] [address] Dr. Caitlin Martinez IG % 1.0 % Critically high 0.0-0.5 [facility] Comment on above: Performed By: #### U RCX #### Laboratory [address] [address] [address] Caitlin Martinez LYMPH # 2.3 103/ul Normal 1.2-3.8 [facility] Comment on above: Performed By: #### U RCX #### Laboratory [address] [address] [address] Caitlin Martinez Lymphocytes/100 WBC (Bld) 31.4 % Normal 20.5-60.0 [facility] Comment on above: Performed By: #### U RCX #### Laboratory [address] [address] [address] Caitlin Martinez MANUAL DIFF REQ NO Normal [facility] Comment on above: Performed By: #### U RCX #### Laboratory [address] [place] [address] Dr. Caitlin Martinez MCH (RBC) [Entitic mass] 24.8 pg Critically low 26.7-34.0 [facility] Comment on above: Performed By: #### U RCX #### Laboratory [address] [address] [address] Caitlin Martinez MCHC (RBC) [Mass/Vol] 30.5 g/dL Normal 29.9-35.2 [facility] Comment on above: Performed By: #### U RCX #### Laboratory [address] [address] [address] Caitlin Martinez MCV (RBC) [Entitic vol] 81.1 fL Normal 81.0-99.0 [facility] Comment on above: Performed By: #### U RCX #### Laboratory [address] [address] [address] Caitlin Martinez MONO # 0.5 103/ul Normal 0.3-0.8 [facility] Comment on above: Performed By: #### U RCX #### Laboratory [address] [address] [address] Caitlin Martinez Monocytes/100 WBC (Bld) 6.6 % Normal 1.7-12.0 [facility] Comment on above: Performed By: #### U RCX #### Laboratory [address] [place] [address] Dr. Caitlin Martinez NEUT # 4.1 103/ul Normal 1.4-6.5 [facility] Comment on above: Performed By: #### U RCX #### Laboratory [address] [address] [address] Caitlin Martinez Neutrophils/100 WBC (Bld) 55.9 % Normal 43.0-75.0 The Comment on above: Performed By: #### U RCX #### Laboratory [address] [address] [address] Ciatlin Martinez Platelet mean volume (Bld) [Entitic vol] 9.4 fL Critically low 9.5-13.5 [facility] Comment on above: Performed By: #### U RCX #### Laboratory [address] [address] [address] Caitlin Martinez PLT 369 103/ul Normal 150-450 The Comment on above: Performed By: #### U RCX #### Laboratory [address] [address] [address] Caitlin Martinez RBC 4.40 106/ul Normal 4.20-5.40 [facility] Comment on above: Performed By: #### U RCX #### Laboratory [address] [address] [address] Caitlin Martinez WBC 7.3 103/ul Normal 4.0-11.0 [facility] Comment on above: Performed By: #### U RCX #### Laboratory [address] [address] [address] Caitlin Martinez FREE THYROXINE INDEX T7on FTI 2.20 Normal 1.30-4.50 [facility] Comment on above: Performed By: #### I HORACIO #### Laboratory [address] [place] [address] Dr. Caitlin Martinez T3U 29.0 % Critically low 30.0-39.0 [facility] Comment on above: Performed By: #### I HORACIO #### Laboratory [address] [address] [address] Caitlin Martinez T4 [Mass/Vol] 7.60 ug/dL Normal 4.80-13.90 [facility] Comment on above: Performed By: #### I HORACIO #### Laboratory [address] [address] [address] Caitlin Martinez GLYCOHEMOGLOBIN A1Con 2021 ADA RECOMMENDATION SEE BELOW Normal [facility] Comment on above: Result Comment: ADA RECOMMENDED LIMIT 4.0 - 6.0 ADA THERAPEUTIC TARGET < 7.0 ACTION SUGGESTED > 7.0 Performed By: #### U RCX #### Laboratory [address] [address] [address] Caitlin Martinez Glucose [Mass/Vol] 97 mg/dL Normal [facility] Comment on above: Performed By: #### U RCX #### Laboratory [address] [address] [address] Caitlin Martinez HbA1c (Bld) [Mass fraction] 5.0 % Normal 4.5-6.2 [facility] Comment on above: Performed By: #### U RCX #### Laboratory [address] [address] [address] Caitlin Martinez IRONon 04-18-2022 Iron [Mass/Vol] 35.0 ug/dL Critically low 50.0-170.[address] [facility] Comment on above: Performed By: #### I HORACIO #### Laboratory [address] [address] [address] Caitlin Martinez LIPID PROFILEon 04-18-2022 CHOL-HDL RATIO NORM SEE BELOW Normal [facility] Comment on above: Result Comment: 3.3 - 4.4 LOW RISK 4.4 - 7.1 AVERAGE RISK 7.1 - 11.0 MODERATE RISK >11.0 HIGH RISK Performed By: #### I HORACIO #### Laboratory [address] [address] [address] Caitlin Martinez Cholesterol [Mass/Vol] 221 mg/dL Critically high <=200 [facility] Comment on above: Performed By: #### I HORACIO #### Laboratory [address] [address] [address] Caitlin Martinez Cholesterol in HDL [Mass/Vol] 67 mg/dL Critically high 40-60 [facility] Comment on above: Performed By: #### I HORACIO #### Laboratory [address] [address] [address] Caitlin Martinez Cholesterol in LDL [Mass/Vol] 142.4 mg/dL Normal [facility] Comment on above: Performed By: #### I HORACIO #### Laboratory [address] [address] [address] Caitlin Martinez Cholesterol.total/Cho lesterol in HDL [Mass ratio] 3.3 {ratio} Normal [facility] Comment on above: Performed By: #### I HORACIO #### Laboratory [address] [address] [address] Caitlin Martinez HDL NORMAL > or = 60 mg/dl - LO W CARDIOVASCULAR RISK <40 mg/dl - HIGH CARDIOVASCULAR RISK Normal [facility] Comment on above: Performed By: #### I HORACIO #### Laboratory [address] [address] [address] Caitlin Martinez LDL CALC NORMAL SEE BELOW Normal [facility] Comment on above: Result Comment: <100 mg/dl OPTIMAL 100 - 129 mg/dl NEAR OR ABOVE OPTIMAL 130 - 159 mg/dl BORDERLINE HIGH 160 - 189 mg/dl HIGH >190 mg/dl VERY HIGH Performed By: #### I HORACIO #### Laboratory [address] [address] [address] Caitlin Martinez Triglyceride [Mass/Vol] 58 mg/dL Normal <=150 [facility] Comment on above: Performed By: #### I HORACIO #### Laboratory [address] [address] [address] Caitlin Martinez VLDL CALC 11.6 mg/dL Normal [facility] Comment on above: Performed By: #### I HORACIO #### Laboratory [address] [place] [address] Dr. Caitlin Martinez PROF 14(COMP METB)on 022 Albumin [Mass/Vol] 3.8 g/dL Normal 3.4-5.0 [facility] Comment on above: Performed By: #### I HORACIO #### Laboratory [address] [place] [address] Dr. Caitlin Martinez Albumin/Globulin [Mass ratio] 1.1 {ratio} Normal [facility] Comment on above: Performed By: #### I HORACIO #### Laboratory [address] [place] [address] Dr. Caitlin Martinez ALP [Catalytic activity/Vol] 132 U/L Critically high 46-116 [facility] Comment on above: Performed By: #### I HORACIO #### Laboratory [address] [address] [address] Caitlin Martinez ALT [Catalytic activity/Vol] 55 U/L Normal 14-59 [facility] Comment on above: Performed By: #### I HORACIO #### Laboratory [address] [address] [address] Caitlin Martinez Anion gap [Moles/Vol] 12.6 mmol/L Normal [facility] Comment on above: Performed By: #### I HORACIO #### Laboratory [address] [address] [address] Caitlin Martinez AST [Catalytic activity/Vol] 27 U/L Normal 15-37 [facility] Comment on above: Performed By: #### I HORACIO #### Laboratory [address] [address] [address] Caitlin Martinez Bilirubin [Mass/Vol] 0.6 mg/dL Normal 0.2-1.0 [facility] Comment on above: Performed By: #### I HORACIO #### Laboratory [address] [address] [address] Caitlin Martinez Calcium [Mass/Vol] 9.1 mg/dL Normal 8.5-10.1 [facility] Comment on above: Performed By: #### I HORACIO #### Laboratory [address] [address] [address] Caitlin Martinez Chloride [Moles/Vol] 106 mmol/L Normal 98-107 [facility] Comment on above: Performed By: #### I HORACIO #### Laboratory [address] [address] [address] Caitlin Martinez CO2 [Moles/Vol] 26.5 mmol/L Normal 21.0-32.0 [facility] Comment on above: Performed By: #### I HORACIO #### Laboratory [address] [address] [address] Caitlin Martinez Creatinine [Mass/Vol] 0.63 mg/dL Normal 0.55-1.02 [facility] Comment on above: Performed By: #### I HORACIO #### Laboratory [address] [address] [address] Caitlin Martinez EGFR-AF WELSH >60 Normal >=60 [facility] Comment on above: Performed By: #### I HORACIO #### Laboratory [address] [address] [address] Caitlin Martinez EGFR-NON AF WELSH >60 Normal >=60 [facility] Comment on above: Performed By: #### I HORACIO #### Laboratory [address] [address] [address] Caitlin Martinez Globulin (S) [Mass/Vol] 3.6 g/dL Normal [facility] Comment on above: Performed By: #### I HORACIO #### Laboratory [address] [place] [address] Dr. Caitlin Martinez Glucose [Mass/Vol] 98 mg/dL Normal 74-106 [facility] Comment on above: Performed By: #### I HORACIO #### Laboratory [address] [place] [address] Dr. Caitlin Martinez Potassium [Moles/Vol] 4.1 mmol/L Normal 3.5-5.1 [facility] Comment on above: Performed By: #### I HORACIO #### Laboratory [address] [place] [address] Dr. Caitlin Martinez Protein [Mass/Vol] 7.4 g/dL Normal 6.4-8.2 [facility] Comment on above: Performed By: #### I HORACIO #### Laboratory [address] [place] [address] Dr. Caitlin Martinez Sodium [Moles/Vol] 141 mmol/L Normal 136-145 [facility] Comment on above: Performed By: #### I HORACIO #### Laboratory [address] [place] [address] Dr. Caitlin Martinez Urea nitrogen [Mass/Vol] 9.0 mg/dL Normal 7.0-18.0 [facility] Comment on above: Performed By: #### I HORACIO #### Laboratory [address] [place] [address] Dr. Caitlin Martinez Urea nitrogen/Creatinine [Mass ratio] 14.3 mg/mg Normal [facility] Comment on above: Performed By: #### I HORACIO #### Laboratory [address] [place] [address] Dr. Caitlin Martinez TSHon 04-18-2022 TSH 1.349 uIU/mL Normal 0.358-3.740 [facility] Comment on above: Performed By: #### I HORACIO #### Laboratory [address] [place] [address] Dr. Caitlin Martinez ANTIBODY ID PANELon 02-15-20 22 ANTIBODY ID PANEL Antibody ID Anti-D Blood Bank Notes most likely due to Rhogam given on 12/01/21 Normal The Comment on above: Performed By: #### D IRCMB, ABID #### Laboratory [address] [place] [address] Dr. Caitlin Martinez CTA CHEST WO W [...] GAGANDEEP WHEELER Date: 2022-02-10 22:55 Normal The CBC AUTO DIFFon 02-10-2022 BASO # 0.1 103/ul Normal 0.0-0.1 [facility] Comment on above: Performed By: #### C BC #### Laboratory [address] [place] [address] Dr. Caitlin Martinez Basophils/100 WBC (Bld) 0.4 % Normal 0.2-2.0 [facility] Comment on above: Performed By: #### C BC #### Laboratory [address] [place] [address] Dr. Caitlin Martinez EO # 0.5 103/ul Normal 0.0-0.7 [facility] Comment on above: Performed By: #### C BC #### Laboratory [address] [place] [address] Dr. Caitlin Martinez Eosinophils/100 WBC (Bld) 4.2 % Normal 0.9-7.0 [facility] Comment on above: Performed By: #### C BC #### Laboratory [address] [address] [address] Caitlin Martinez Erythrocyte distribution width (RBC) [Ratio] 14.7 % Normal 11.0-15.0 [facility] Comment on above: Performed By: #### C BC #### Laboratory [address] [address] [address] Caitlin Martinez Hematocrit (Bld) [Volume fraction] 31.1 % Critically low 36.0-48.0 [facility] Comment on above: Performed By: #### C BC #### Laboratory [address] [place] [address] Dr. Caitlin Martinez Hemoglobin (Bld) [Mass/Vol] 9.6 g/dL Critically low 12.0-16.0 [facility] Comment on above: Performed By: #### C BC #### Laboratory [address] [address] [address] Caitlin Martinez IG # 0.28 10e3/ul Critically high 0.00-0.03 [facility] Comment on above: Performed By: #### C BC #### Laboratory [address] [address] [address] Caitlin Martinez IG % 2.3 % Critically high 0.0-0.5 [facility] Comment on above: Performed By: #### C BC #### Laboratory [address] [place] [address] Dr. Caitlin Martinez LYMPH # 3.3 103/ul Normal 1.2-3.8 The Comment on above: Performed By: #### C BC #### Laboratory [address] [address] [address] Caitlin Martinez Lymphocytes/100 WBC (Bld) 26.9 % Normal 20.5-60.0 [facility] Comment on above: Performed By: #### C BC #### Laboratory [address] [place] [address] Dr. Caitlin Martinez MANUAL DIFF REQ NO Normal [facility] Comment on above: Performed By: #### C BC #### Laboratory [address] [place] [address] Dr. Caitlin Martinez MCH (RBC) [Entitic mass] 26.2 pg Critically low 26.7-34.0 [facility] Comment on above: Performed By: #### C BC #### Laboratory [address] [place] [address] Dr. Caitlin Martinez MCHC (RBC) [Mass/Vol] 30.9 g/dL Normal 29.9-35.2 The Comment on above: Performed By: #### C BC #### Laboratory [address] [place] [address] Dr. Caitlin Martinez MCV (RBC) [Entitic vol] 84.7 fL Normal 81.0-99.0 [facility] Comment on above: Performed By: #### C BC #### Laboratory [address] [place] [address] Dr. Ciatlin Martinez MONO # 1.1 103/ul Critically high 0.3-0.8 [facility] Comment on above: Performed By: #### C BC #### Laboratory [address] [place] [address] Dr. Caitlin Martinez Monocytes/100 WBC (Bld) 8.7 % Normal 1.7-12.0 The Comment on above: Performed By: #### C BC #### Laboratory [address] [place] [address] Dr. Caitlin Martinez NEUT # 7.0 103/ul Critically high 1.4-6.5 [facility] Comment on above: Performed By: #### C BC #### Laboratory [address] [place] [address] Dr. Caitlin Martinez Neutrophils/100 WBC (Bld) 57.5 % Normal 43.0-75.0 The Comment on above: Performed By: #### C BC #### Laboratory [address] [place] [address] Dr. Caitlin Martinez Platelet mean volume (Bld) [Entitic vol] 9.1 fL Critically low 9.5-13.5 The Comment on above: Performed By: #### C BC #### Laboratory [address] [address] [address] Caitlin Martinez PLT 437 103/ul Normal 150-450 The Comment on above: Performed By: #### C BC #### Laboratory [address] [address] [address] Caitlin Martinez RBC 3.67 106/ul Critically low 4.20-5.40 [facility] Comment on above: Performed By: #### C BC #### Laboratory [address] [place] [address] Dr. Caitlin Martinez WBC 12.3 103/ul Critically high 4.0-11.0 [facility] Comment on above: Performed By: #### C BC #### Laboratory [address] [address] [address] Caitlin Martinez Covid-19 PCR (CVDTB)on 01-16 SARS-CoV-2 (COVID-19) RNA JONATAN+probe Ql (Unsp spec) Not detected Normal NOT DETECTED The Comment on above: Result Comment: When diagnostic [...] for this test is supported by the [place] [employer] Health and Human Service's declaration that [...] used). Performed By: #### C VDTBH #### Laboratory [address] [address] [address] Caitlin Martinez PROF 14(COMP METB)on 022 Albumin [Mass/Vol] 2.1 g/dL Critically low 3.4-5.0 [facility] Comment on above: Performed By: #### U RCX #### Laboratory [address] [address] [address] Caitlin Martinez Albumin/Globulin [Mass ratio] 0.5 {ratio} Normal [facility] Comment on above: Performed By: #### U RCX #### Laboratory [address] [place] [address] Dr. Caitlin Martinez ALP [Catalytic activity/Vol] 202 U/L Critically high 46-116 [facility] Comment on above: Performed By: #### U RCX #### Laboratory [address] [place] [address] Dr. Caitlin Martinez ALT [Catalytic activity/Vol] 20 U/L Normal 14-59 [facility] Comment on above: Performed By: #### U RCX #### Laboratory [address] [place] [address] Dr. Caitlin Martinez Anion gap [Moles/Vol] 11.6 mmol/L Normal [facility] Comment on above: Performed By: #### U RCX #### Laboratory [address] [place] [address] Dr. Caitlin Martinez AST [Catalytic activity/Vol] 17 U/L Normal 15-37 [facility] Comment on above: Performed By: #### U RCX #### Laboratory [address] [place] [address] Dr. Caitlin Martinez Bilirubin [Mass/Vol] 0.3 mg/dL Normal 0.2-1.0 [facility] Comment on above: Performed By: #### U RCX #### Laboratory [address] [place] [address] Dr. Caitlin Martinez Calcium [Mass/Vol] 9.2 mg/dL Normal 8.5-10.1 [facility] Comment on above: Performed By: #### U RCX #### Laboratory [address] [address] [address] Caitlin Martinez Chloride [Moles/Vol] 104 mmol/L Normal 98-107 [facility] Comment on above: Performed By: #### U RCX #### Laboratory [address] [address] [address] Caitlin Mratinez CO2 [Moles/Vol] 26.9 mmol/L Normal 21.0-32.0 [facility] Comment on above: Performed By: #### U RCX #### Laboratory [address] [address] [address] Caitlin Martinez Creatinine [Mass/Vol] 0.56 mg/dL Normal 0.55-1.02 [facility] Comment on above: Performed By: #### U RCX #### Laboratory [address] [place] [address] Dr. aCitlin Martinez EGFR-AF WELSH >60 Normal >=60 [facility] Comment on above: Performed By: #### U RCX #### Laboratory [address] [address] [address] Caitlin Martinez EGFR-NON AF WELSH >60 Normal >=60 [facility] Comment on above: Performed By: #### U RCX #### Laboratory [address] [place] [address] Dr. Caitlin Martinez Globulin (S) [Mass/Vol] 4.4 g/dL Normal [facility] Comment on above: Performed By: #### U RCX #### Laboratory [address] [address] [address] Caitlin Martinez Glucose [Mass/Vol] 108 mg/dL Critically high 74-106 [facility] Comment on above: Performed By: #### U RCX #### Laboratory [address] [address] [address] Caitlin Martinez Potassium [Moles/Vol] 3.5 mmol/L Normal 3.5-5.1 [facility] Comment on above: Performed By: #### U RCX #### Laboratory [address] [address] [address] Caitlin Martinez Protein [Mass/Vol] 6.5 g/dL Normal 6.4-8.2 [facility] Comment on above: Performed By: #### U RCX #### Laboratory [address] [place] [address] Dr. Caitlin Martinez Sodium [Moles/Vol] 139 mmol/L Normal 136-145 [facility] Comment on above: Performed By: #### U RCX #### Laboratory [address] [place] [address] Dr. Caitlin Martinez Urea nitrogen [Mass/Vol] 7.0 mg/dL Normal 7.0-18.0 [facility] Comment on above: Performed By: #### U RCX #### Laboratory [address] [place] [address] Dr. Caitlin Martinez Urea nitrogen/Creatinine [Mass ratio] 12.5 mg/mg Normal [facility] Comment on above: Performed By: #### U RCX #### Laboratory [address] [place] [address] Dr. Caitlin Martinez TROPONIN, HIGH SENSITIVITYon 02-10-2022 HSTROP <4.0 Normal 4.0-51.3 The Comment on above: Result Comment: CUT- OFF POINTS HAVE BEEN ESTABLISHED BASED ON THE FOURTH UNIVERSAL DEFINITIONS OF MYOCARDIAL INFARCTION. THE UPPER REFERENCE LIMIT (URL) OF TROPONIN, DEFINED THE 99TH PERCENTILE OF cTnI DISTRIBUTION IN A REFERENCE POPULATION, HAS BEEN CONFIRMED THE DECISION THRESHOLD FOR [place] DIAGNOSIS. Performed By: #### U RCX #### Laboratory [address] [place] [address] Dr. Caitlin Martinez CBC AUTO DIFFon 02-09-2022 BASO # 0.1 103/ul Normal 0.0-0.1 The Comment on above: Performed By: #### U RCX #### Laboratory [address] [place] [address] Dr. Caitiln Martinez Basophils/100 WBC (Bld) 0.6 % Normal 0.2-2.0 [facility] Comment on above: Performed By: #### U RCX #### Laboratory [address] [address] [address] Caitlin Martinez EO # 0.3 103/ul Normal 0.0-0.7 [facility] Comment on above: Performed By: #### U RCX #### Laboratory [address] [address] [address] Caitlin Martinez Eosinophils/100 WBC (Bld) 2.3 % Normal 0.9-7.0 [facility] Comment on above: Performed By: #### U RCX #### Laboratory [address] [place] [address] Dr. Caitlin Martinez Erythrocyte distribution width (RBC) [Ratio] 14.6 % Normal 11.0-15.0 [facility] Comment on above: Performed By: #### U RCX #### Laboratory [address] [place] [address] Dr. Caitlin Martinez Hematocrit (Bld) [Volume fraction] 28.8 % Critically low 36.0-48.0 [facility] Comment on above: Performed By: #### U RCX #### Laboratory [address] [place] [address] Dr. Caitlin Martinez Hemoglobin (Bld) [Mass/Vol] 9.0 g/dL Critically low 12.0-16.0 [facility] Comment on above: Performed By: #### U RCX #### Laboratory [address] [place] [address] Dr. Caitlin Martinez IG # 0.20 10e3/ul Critically high 0.00-0.03 [facility] Comment on above: Performed By: #### U RCX #### Laboratory [address] [place] [address] Dr. Caitlin Martinez IG % 1.5 % Critically high 0.0-0.5 [facility] Comment on above: Performed By: #### U RCX #### Laboratory [address] [place] [address] Dr. Caitlin Martinez LYMPH # 3.0 103/ul Normal 1.2-3.8 The Comment on above: Performed By: #### U RCX #### Laboratory [address] [place] [address] Dr. Caitlin Martinez Lymphocytes/100 WBC (Bld) 22.2 % Normal 20.5-60.0 [facility] Comment on above: Performed By: #### U RCX #### Laboratory [address] [place] [address] Dr. Caitlin Martinez MANUAL DIFF REQ NO Normal [facility] Comment on above: Performed By: #### U RCX #### Laboratory [address] [place] [address] Dr. Caitlin Martinez MCH (RBC) [Entitic mass] 26.2 pg Critically low 26.7-34.0 The Comment on above: Performed By: #### U RCX #### Laboratory [address] [place] [address] Dr. Caitlin Martinez MCHC (RBC) [Mass/Vol] 31.3 g/dL Normal 29.9-35.2 [facility] Comment on above: Performed By: #### U RCX #### Laboratory [address] [place] [address] Dr. Caitlin Martinez MCV (RBC) [Entitic vol] 83.7 fL Normal 81.0-99.0 [facility] Comment on above: Performed By: #### U RCX #### Laboratory [address] [place] [address] Dr. Caitlin Martinez MONO # 1.3 103/ul Critically high 0.3-0.8 [facility] Comment on above: Performed By: #### U RCX #### Laboratory [address] [place] [address] Dr. Caitlin Martinez Monocytes/100 WBC (Bld) 9.8 % Normal 1.7-12.0 The Comment on above: Performed By: #### U RCX #### Laboratory [address] [place] [address] Dr. Caitlin Martinez NEUT # 8.5 103/ul Critically high 1.4-6.5 [facility] Comment on above: Performed By: #### U RCX #### Laboratory [address] [address] [address] Caitlin Martinez Neutrophils/100 WBC (Bld) 63.6 % Normal 43.0-75.0 [facility] Comment on above: Performed By: #### U RCX #### Laboratory [address] [address] [address] Caitlin Martinez Platelet mean volume (Bld) [Entitic vol] 9.1 fL Critically low 9.5-13.5 [facility] Comment on above: Performed By: #### U RCX #### Laboratory [address] [address] [address] Caitlin Martinez PLT 355 103/ul Normal 150-450 [facility] Comment on above: Performed By: #### U RCX #### Laboratory [address] [place] [address] Dr. Caitlin Martinez RBC 3.44 106/ul Critically low 4.20-5.40 [facility] Comment on above: Performed By: #### U RCX #### Laboratory [address] [place] [address] Dr. Caitlin Martinez WBC 13.3 103/ul Critically high 4.0-11.0 [facility] Comment on above: Performed By: #### U RCX #### Laboratory [address] [place] [address] Dr. Caitlin Martinez SCREENon 02-09-2022 SCREEN Negative Normal The Comment on above: Performed By: #### F ETSCRN #### Laboratory [address] [place] [address] Dr. Caitlin Martinez CBC AUTO DIFFon 02-08-2022 BASO # 0.1 103/ul Normal 0.0-0.1 [facility] Comment on above: Performed By: #### U RCX #### Laboratory [address] [address] [address] Caitlin Martinez Basophils/100 WBC (Bld) 0.4 % Normal 0.2-2.0 [facility] Comment on above: Performed By: #### U RCX #### Laboratory [address] [address] [address] Caitlin Martinez EO # 0.3 103/ul Normal 0.0-0.7 [facility] Comment on above: Performed By: #### U RCX #### Laboratory [address] [address] [address] Caitlin Martinez Eosinophils/100 WBC (Bld) 2.6 % Normal 0.9-7.0 [facility] Comment on above: Performed By: #### U RCX #### Laboratory [address] [place] [address] Dr. Caitlin Martinez Erythrocyte distribution width (RBC) [Ratio] 14.7 % Normal 11.0-15.0 [facility] Comment on above: Performed By: #### U RCX #### Laboratory [address] [place] [address] Dr. Caitlin Martinez Hematocrit (Bld) [Volume fraction] 30.6 % Critically low 36.0-48.0 [facility] Comment on above: Performed By: #### U RCX #### Laboratory [address] [place] [address] Dr. Caitlin Martinez Hemoglobin (Bld) [Mass/Vol] 9.7 g/dL Critically low 12.0-16.0 [facility] Comment on above: Performed By: #### U RCX #### Laboratory [address] [place] [address] Dr. Caitlin Martinez IG # 0.15 10e3/ul Critically high 0.00-0.03 [facility] Comment on above: Performed By: #### U RCX #### Laboratory [address] [address] [address] Caitlin Martinez IG % 1.3 % Critically high 0.0-0.5 [facility] Comment on above: Performed By: #### U RCX #### Laboratory [address] [place] [address] Dr. Caitlin Martinez LYMPH # 2.8 103/ul Normal 1.2-3.8 [facility] Comment on above: Performed By: #### U RCX #### Laboratory [address] [address] [address] Caitlin Martinez Lymphocytes/100 WBC (Bld) 24.8 % Normal 20.5-60.0 [facility] Comment on above: Performed By: #### U RCX #### Laboratory [address] [address] [address] Caitlin Martinez MANUAL DIFF REQ NO Normal [facility] Comment on above: Performed By: #### U RCX #### Laboratory [address] [address] [address] Caitlin Martinez MCH (RBC) [Entitic mass] 26.6 pg Critically low 26.7-34.0 [facility] Comment on above: Performed By: #### U RCX #### Laboratory [address] [place] [address] Dr. Caitlin Martinez MCHC (RBC) [Mass/Vol] 31.7 g/dL Normal 29.9-35.2 [facility] Comment on above: Performed By: #### U RCX #### Laboratory [address] [address] [address] Caitlin Martinez MCV (RBC) [Entitic vol] 83.8 fL Normal 81.0-99.0 [facility] Comment on above: Performed By: #### U RCX #### Laboratory [address] [address] [address] Caitlin Martinez MONO # 1.0 103/ul Critically high 0.3-0.8 [facility] Comment on above: Performed By: #### U RCX #### Laboratory [address] [address] [address] Caitlin Martinez Monocytes/100 WBC (Bld) 8.7 % Normal 1.7-12.0 [facility] Comment on above: Performed By: #### U RCX #### Laboratory [address] [address] [address] Caitlin Martinez NEUT # 7.0 103/ul Critically high 1.4-6.5 [facility] Comment on above: Performed By: #### U RCX #### Laboratory [address] [address] [address] Caitlin Martinez Neutrophils/100 WBC (Bld) 62.2 % Normal 43.0-75.0 [facility] Comment on above: Performed By: #### U RCX #### Laboratory [address] [address] [address] Caitlin Martinez Platelet mean volume (Bld) [Entitic vol] 9.0 fL Critically low 9.5-13.5 [facility] Comment on above: Performed By: #### U RCX #### Laboratory [address] [address] [address] Caitlin Martinez PLT 373 103/ul Normal 150-450 [facility] Comment on above: Performed By: #### U RCX #### Laboratory [address] [address] [address] Caitlin Martinez RBC 3.65 106/ul Critically low 4.20-5.40 [facility] Comment on above: Performed By: #### U RCX #### Laboratory [address] [address] [address] Caitlin Martinez WBC 11.3 103/ul Critically high 4.0-11.0 [facility] Comment on above: Performed By: #### U RCX #### Laboratory [address] [address] [address] Caitlin Martinez Covid-19 PCR ([facility])on 01-16 SARS-CoV-2 (COVID-19) RNA JONATAN+probe Ql (Unsp spec) Not detected Normal NOT DETECTED The Comment on above: Result Comment: When diagnostic [...] for this test is supported by the [place] [employer] Health and Human Service's declaration that [...] used). Performed By: #### C BC #### Laboratory [address] [place] [address] Dr. Caitlin Martinez DIRECT COOMBSon 02-08-2022 DIRECT EDWINA Negative Normal [facility] Comment on above: Performed By: #### D IRCMB, ABID #### Laboratory [address] [place] [address] Dr. Caitlin Martinez DRUG SCREEN RAPID (URINE)on 02-08-2022 AMP Negative Normal NEGATIVE [facility] Comment on above: Performed By: #### C BC #### Laboratory [address] [place] [address] Dr. Caitlin Martinez BAR Negative Normal NEGATIVE [facility] Comment on above: Performed By: #### C BC #### Laboratory [address] [place] [address] Dr. Caitlin Martinez BUP Negative Normal NEGATIVE [facility] Comment on above: Performed By: #### C BC #### Laboratory [address] [place] [address] Dr. Caitlin Martinez BZO Negative Normal NEGATIVE [facility] Comment on above: Performed By: #### C BC #### Laboratory [address] [place] [address] Dr. Caitlin Martinez JEANNA Negative Normal NEGATIVE [facility] Comment on above: Performed By: #### C BC #### Laboratory [address] [place] [address] Dr. Caitlin Martinez CUT-OFFS SEE BELOW Normal [facility] Comment on above: Result Comment: AMP (Amphetamine): 500ng/mL, BAR (Barbituates): 200 ng/mL, BZO (Benzodiazepines): 150 ng/mL, BUP (Buprenorphine): 10 ng/mL, JEANNA (Cocaine): 150 ng/mL, mAMP (Methamphetamine): 500 ng/mL, MTD (Methadone): 200 ng/mL, OPI (Opiates): 100 ng/mL, OXY (Oxycodone): 100 ng/mL, PCP (Phencyclidine): 25 ng/mL, PPX (Propoxyphene): 300 ng/mL, THC (Cannabinoids): 50 ng/mL, TCA (Trycyclic Antidepressants): 300 ng/mL Performed By: #### C BC #### Laboratory [address] [place] [address] Dr. Caitlin Martinez DRUG CUT HEADER DRUG CLASS TEST SYSTEM CUT-OFF CONCENTRATIONS ARE FOLLOWS: Normal [facility] Comment on above: Performed By: #### C BC #### Laboratory [address] [place] [address] Dr. Caitlin Martinez mAMP Negative Normal NEGATIVE [facility] Comment on above: Performed By: #### C BC #### Laboratory [address] [place] [address] Dr. Caitlin Martinez MTD Negative Normal NEGATIVE [facility] Comment on above: Performed By: #### C BC #### Laboratory [address] [place] [address] Dr. Caitlin Martinez OPI Negative Normal NEGATIVE [facility] Comment on above: Performed By: #### C BC #### Laboratory [address] [place] [address] Dr. Caitlin Martinez OXY Negative Normal NEGATIVE [facility] Comment on above: Performed By: #### C BC #### Laboratory [address] [place] [address] Dr. Caitlin Martinez PCP Negative Normal NEGATIVE [facility] Comment on above: Performed By: #### C BC #### Laboratory [address] [place] [address] Dr. Caitlin Martinez PPX Negative Normal NEGATIVE [facility] Comment on above: Performed By: #### C BC #### Laboratory [address] [place] [address] Dr. Caitlin Martinez TCA Negative Normal NEGATIVE [facility] Comment on above: Performed By: #### C BC #### Laboratory [address] [place] [address] Dr. Caitlin Martinez THC Negative Normal NEGATIVE [facility] Comment on above: Performed By: #### C BC #### Laboratory [address] [place] [address] Dr. Caitlin Martinez TYPE AND SCREENon 02-08-2022 TYPE AND SCREEN Negative Normal [facility] Comment on above: Performed By: #### I HORACIO #### Laboratory [address] [place] [address] Dr. Caitlin Martinez US PREG BIOPHY W [...] DAVID BLACKMON Date: 2022-02-05 16:28 Normal The AMNISUREon 01-25-2022 AMNISURE Negative Normal NEGATIVE The Comment on above: Performed By: #### A MNI #### Laboratory [address] [place] [address] Dr. Caitlin Martinez CULTURE URINEon 01-25-2022 CULTURE URINE Culture Observations : No growth Normal The Comment on above: Performed By: #### U RCX #### Laboratory [address] [place] [address] Dr. Caitlin Martinez UA (CLEAN/CATCH) GENERAL MERCHANDISE SALESPERSON/MICRO I F IND.on 01-25-2022 Bilirubin Ql (U) Negative Normal NEGATIVE [facility] Comment on above: Performed By: #### C VDTBH #### Laboratory [address] [place] [address] Dr. Caitlin Martinez Clarity (U) SL CLOUDY Abnormal CLEAR [facility] Comment on above: Performed By: #### C VDTBH #### Laboratory [address] [place] [address] Dr. Caitlin Martinez Color (U) LT. YELLOW Normal YELLOW [facility] Comment on above: Performed By: #### C VDTBH #### Laboratory [address] [place] [address] Dr. Caitlin Martinez Glucose Ql (U) Negative Normal NEGATIVE [facility] Comment on above: Performed By: #### C VDTBH #### Laboratory [address] [place] [address] Dr. Caitlin Martinez Hemoglobin Ql (U) TRACE-INTACT Abnormal NEGATIVE [facility] Comment on above: Performed By: #### C VDTBH #### Laboratory [address] [place] [address] Dr. Caitlin Martinez Ketones Ql (U) Negative Normal NEGATIVE [facility] Comment on above: Performed By: #### C VDTBH #### Laboratory [address] [place] [address] Dr. Caitlin Martinez LEUKOCYTES TRACE Abnormal NEGATIVE [facility] Comment on above: Performed By: #### C VDTBH #### Laboratory [address] [place] [address] Dr. Caitlin Martinez Nitrite Ql (U) Negative Normal NEGATIVE [facility] Comment on above: Performed By: #### C VDTBH #### Laboratory [address] [place] [address] Dr. Caitlin Martinez pH (U) 6.5 [pH] Normal 5-9 [facility] Comment on above: Performed By: #### C VDTBH #### Laboratory [address] [place] [address] Dr. Caitlin Martinze SPEC GRAVITY 1.020 Normal 1.005-<=1.025 [facility] Comment on above: Performed By: #### C VDTBH #### Laboratory [address] [place] [address] Dr. Caitlin Martinez UA PROTEIN Negative Normal NEGATIVE/ TRACE The Comment on above: Performed By: #### C VDTBH #### Laboratory [address] [place] [address] Dr. Caitlin Martinez UR MICRO IND INDICATED Normal The Comment on above: Performed By: #### C VDTBH #### Laboratory [address] [place] [address] Dr. Caitlin Martinez Urobilinogen Qn (U) 0.2 {Barbara'U}/dL Normal 0.2 - 1. 0 The Comment on above: Performed By: #### C VDTBH #### Laboratory [address] [place] [address] Dr. Caitlin Martinez URINE MICROSCOPIC ONLYon BACTERIA MODERATE Abnormal NONE SEEN The Comment on above: Performed By: #### C VDTBH #### Laboratory [address] [place] [address] Dr. Caitlin Martinez Bacteria identified Cx Nom (U) INDICATED Normal The Comment on above: Performed By: #### C VDTBH #### Laboratory [address] [place] [address] Dr. Caitlin Martinez CAST NONE SEEN Normal NONE SEEN [facility] Comment on above: Performed By: #### C VDTBH #### Laboratory [address] [place] [address] Dr. Caitlin Martinez Crystals LM Nom (Urine sed) NONE SEEN Normal NONE SEEN The Comment on above: Performed By: #### C VDTBH #### Laboratory [address] [place] [address] Dr. Caitlin Martinez Epithelial cells LM Ql (Urine sed) FEW Abnormal NONE SEEN /RARE The Comment on above: Performed By: #### C VDTBH #### Laboratory [address] [place] [address] Dr. Caitlin Martinez MUCOUS TRACE Abnormal NONE SEEN The Comment on above: Performed By: #### C VDTBH #### Laboratory [address] [place] [address] Dr. Caitlin Martinez RBC 2-5 Abnormal 0-2 The Comment on above: Performed By: #### C VDTBH #### Laboratory [address] [place] [address] Dr. Caitlin Martinez WBC 0-2 Abnormal NONE SEEN The Comment on above: Performed By: #### C VDTBH #### Laboratory [address] [place] [address] Dr. Caitlin Martinez AMYLASEon 01-16-2022 Amylase [Catalytic activity/Vol] 49 U/L Normal 25-115 The Comment on above: Performed By: #### C VDTBH #### Laboratory [address] [place] [address] Dr. Caitlin Martinez BUNon 01-16-2022 Urea nitrogen [Mass/Vol] 3.0 mg/dL Critically low 7.0-18.0 [facility] Comment on above: Performed By: #### C BC #### Laboratory [address] [place] [address] Dr. Caitlin Martinez CBC AUTO DIFFon 01-16-2022 BASO # 0.1 103/ul Normal 0.0-0.1 [facility] Comment on above: Performed By: #### U RCX #### Laboratory [address] [place] [address] Dr. Caitlin Martinez Basophils/100 WBC (Bld) 0.6 % Normal 0.2-2.0 [facility] Comment on above: Performed By: #### U RCX #### Laboratory [address] [place] [address] Dr. Caitlin Martinez EO # 0.3 103/ul Normal 0.0-0.7 [facility] Comment on above: Performed By: #### U RCX #### Laboratory [address] [place] [address] Dr. Caitlin Martinez Eosinophils/100 WBC (Bld) 2.6 % Normal 0.9-7.0 [facility] Comment on above: Performed By: #### U RCX #### Laboratory [address] [place] [address] Dr. Caitlin Martinez Erythrocyte distribution width (RBC) [Ratio] 14.4 % Normal 11.0-15.0 [facility] Comment on above: Performed By: #### U RCX #### Laboratory [address] [place] [address] Dr. Caitlin Martinez Hematocrit (Bld) [Volume fraction] 28.4 % Critically low 36.0-48.0 [facility] Comment on above: Performed By: #### U RCX #### Laboratory [address] [place] [address] Dr. Caitlin Martinez Hemoglobin (Bld) [Mass/Vol] 9.0 g/dL Critically low 12.0-16.0 [facility] Comment on above: Performed By: #### U RCX #### Laboratory [address] [place] [address] Dr. Caitlin Martinez IG # 0.11 10e3/ul Critically high 0.00-0.03 [facility] Comment on above: Performed By: #### U RCX #### Laboratory [address] [place] [address] Dr. Caitlin Martinez IG % 1.1 % Critically high 0.0-0.5 [facility] Comment on above: Performed By: #### U RCX #### Laboratory [address] [place] [address] Dr. Caitlin Martinez LYMPH # 2.2 103/ul Normal 1.2-3.8 [facility] Comment on above: Performed By: #### U RCX #### Laboratory [address] [place] [address] Dr. Caitlin Martinez Lymphocytes/100 WBC (Bld) 21.0 % Normal 20.5-60.0 [facility] Comment on above: Performed By: #### U RCX #### Laboratory [address] [place] [address] Dr. Caitlin Martinez MANUAL DIFF REQ NO Normal [facility] Comment on above: Performed By: #### U RCX #### Laboratory [address] [place] [address] Dr. Caitlin Martinez MCH (RBC) [Entitic mass] 28.2 pg Normal 26.7-34.0 [facility] Comment on above: Performed By: #### U RCX #### Laboratory [address] [place] [address] Dr. Caitlin Martinez MCHC (RBC) [Mass/Vol] 31.7 g/dL Normal 29.9-35.2 The Comment on above: Performed By: #### U RCX #### Laboratory [address] [place] [address] Dr. Caitlin Martinez MCV (RBC) [Entitic vol] 89.0 fL Normal 81.0-99.0 [facility] Comment on above: Performed By: #### U RCX #### Laboratory [address] [place] [address] Dr. Caitlin Martinez MONO # 0.9 103/ul Critically high 0.3-0.8 [facility] Comment on above: Performed By: #### U RCX #### Laboratory [address] [place] [address] Dr. Caitlin Martinez Monocytes/100 WBC (Bld) 8.9 % Normal 1.7-12.0 [facility] Comment on above: Performed By: #### U RCX #### Laboratory [address] [place] [address] Dr. Caitlin Martinez NEUT # 6.8 103/ul Critically high 1.4-6.5 [facility] Comment on above: Performed By: #### U RCX #### Laboratory [address] [place] [address] Dr. Caitlin Martinez Neutrophils/100 WBC (Bld) 65.8 % Normal 43.0-75.0 The Comment on above: Performed By: #### U RCX #### Laboratory [address] [place] [address] Dr. Caitlin Martinez Platelet mean volume (Bld) [Entitic vol] 8.6 fL Critically low 9.5-13.5 [facility] Comment on above: Performed By: #### U RCX #### Laboratory [address] [place] [address] Dr. Caitlin Martinez PLT 322 103/ul Normal 150-450 [facility] Comment on above: Performed By: #### U RCX #### Laboratory [address] [place] [address] Dr. Caitlin Martinez RBC 3.19 106/ul Critically low 4.20-5.40 [facility] Comment on above: Performed By: #### U RCX #### Laboratory [address] [place] [address] Dr. Caitlin Martinez WBC 10.3 103/ul Normal 4.0-11.0 [facility] Comment on above: Performed By: #### U RCX #### Laboratory [address] [place] [address] Dr. Caitlin Martinez CREATININEon 01-16-2022 Creatinine [Mass/Vol] 0.55 mg/dL Normal 0.55-1.02 [facility] Comment on above: Performed By: #### C VDTBH #### Laboratory [address] [place] [address] Dr. Caitlin Martinez EGFR-AF WELSH >60 Normal >=60 [facility] Comment on above: Performed By: #### C VDTBH #### Laboratory [address] [place] [address] Dr. Caitlin Martinez EGFR-NON AF WELSH >60 Normal >=60 [facility] Comment on above: Performed By: #### C VDTBH #### Laboratory [address] [place] [address] Dr. Caitlin Martinez ELECTROLYTESon 01-16-2022 Anion gap [Moles/Vol] 13.6 mmol/L Normal [facility] Comment on above: Performed By: #### C VDTBH #### Laboratory [address] [place] [address] Dr. Caitlin Martinez Chloride [Moles/Vol] 106 mmol/L Normal 98-107 [facility] Comment on above: Performed By: #### C VDTBH #### Laboratory [address] [place] [address] Dr. Caitlin Martinez CO2 [Moles/Vol] 22.9 mmol/L Normal 21.0-32.0 [facility] Comment on above: Performed By: #### C VDTBH #### Laboratory [address] [place] [address] Dr. Caitlin Martinez Potassium [Moles/Vol] 3.5 mmol/L Normal 3.5-5.1 [facility] Comment on above: Performed By: #### C VDTBH #### Laboratory [address] [place] [address] Dr. Caitlin Martinez Sodium [Moles/Vol] 139 mmol/L Normal 136-145 [facility] Comment on above: Performed By: #### C VDTBH #### Laboratory [address] [place] [address] Dr. Caitlin Martinez LIPASEon 01-16-2022 Lipase [Catalytic activity/Vol] 66.0 U/L Critically low 73.0-393.0 [facility] Comment on above: Performed By: #### C BC #### Laboratory [address] [place] [address] Dr. Caitlin Martinez SGOTon 01-16-2022 AST [Catalytic activity/Vol] 12 U/L Critically low 15-37 [facility] Comment on above: Performed By: #### C VDTBH #### Laboratory [address] [place] [address] Dr. Caitlin Martinez SGPTon 01-16-2022 ALT [Catalytic activity/Vol] 9 U/L Critically low 14-59 [facility] Comment on above: Performed By: #### C VDTBH #### Laboratory [address] [place] [address] Dr. Caitlin Martinez CBC AUTO DIFFon 01-15-2022 BASO # 0.1 103/ul Normal 0.0-0.1 [facility] Comment on above: Performed By: #### C VDTBH #### Laboratory [address] [place] [address] Dr. Caitlin Martinez Basophils/100 WBC (Bld) 0.4 % Normal 0.2-2.0 The Comment on above: Performed By: #### C VDTBH #### Laboratory [address] [place] [address] Dr. Caitlin Martinez EO # 0.2 103/ul Normal 0.0-0.7 [facility] Comment on above: Performed By: #### C VDTBH #### Laboratory [address] [place] [address] Dr. Caitlin Martinez Eosinophils/100 WBC (Bld) 1.4 % Normal 0.9-7.0 [facility] Comment on above: Performed By: #### C VDTBH #### Laboratory [address] [place] [address] Dr. Caitlin Martinez Erythrocyte distribution width (RBC) [Ratio] 14.1 % Normal 11.0-15.0 [facility] Comment on above: Performed By: #### C VDTBH #### Laboratory [address] [place] [address] Dr. Caitlin Martinez Hematocrit (Bld) [Volume fraction] 28.4 % Critically low 36.0-48.0 [facility] Comment on above: Performed By: #### C VDTBH #### Laboratory [address] [place] [address] Dr. Caitlin Martinez Hemoglobin (Bld) [Mass/Vol] 9.0 g/dL Critically low 12.0-16.0 [facility] Comment on above: Performed By: #### C VDTBH #### Laboratory [address] [place] [address] Dr. Caitlin Martinez IG # 0.18 10e3/ul Critically high 0.00-0.03 [facility] Comment on above: Performed By: #### C VDTBH #### Laboratory [address] [place] [address] Dr. Caitlin Martinez IG % 1.3 % Critically high 0.0-0.5 [facility] Comment on above: Performed By: #### C VDTBH #### Laboratory [address] [place] [address] Dr. Caitlin Martinez LYMPH # 2.4 103/ul Normal 1.2-3.8 [facility] Comment on above: Performed By: #### C VDTBH #### Laboratory [address] [place] [address] Dr. Caitlin Martinez Lymphocytes/100 WBC (Bld) 16.8 % Critically low 20.5-60.0 [facility] Comment on above: Performed By: #### C VDTBH #### Laboratory [address] [place] [address] Dr. Caitlin Martinez MANUAL DIFF REQ NO Normal [facility] Comment on above: Performed By: #### C VDTBH #### Laboratory [address] [place] [address] Dr. Caitlin Martinez MCH (RBC) [Entitic mass] 27.9 pg Normal 26.7-34.0 [facility] Comment on above: Performed By: #### C VDTBH #### Laboratory [address] [place] [address] Dr. Caitlin Martinez MCHC (RBC) [Mass/Vol] 31.7 g/dL Normal 29.9-35.2 [facility] Comment on above: Performed By: #### C VDTBH #### Laboratory [address] [place] [address] Dr. Caitlin Martinez MCV (RBC) [Entitic vol] 87.9 fL Normal 81.0-99.0 [facility] Comment on above: Performed By: #### C VDTBH #### Laboratory [address] [place] [address] Dr. Caitlin Martinez MONO # 0.9 103/ul Critically high 0.3-0.8 [facility] Comment on above: Performed By: #### C VDTBH #### Laboratory [address] [place] [address] Dr. Caitlin Martinez Monocytes/100 WBC (Bld) 6.7 % Normal 1.7-12.0 [facility] Comment on above: Performed By: #### C VDTBH #### Laboratory [address] [place] [address] Dr. Caitlin Martinez NEUT # 10.3 103/ul Critically high 1.4-6.5 [facility] Comment on above: Performed By: #### C VDTBH #### Laboratory [address] [place] [address] Dr. Caitlin Martinez Neutrophils/100 WBC (Bld) 73.4 % Normal 43.0-75.0 [facility] Comment on above: Performed By: #### C VDTBH #### Laboratory [address] [place] [address] Dr. Caitlin Martinez Platelet mean volume (Bld) [Entitic vol] 9.0 fL Critically low 9.5-13.5 [facility] Comment on above: Performed By: #### C VDTBH #### Laboratory [address] [place] [address] Dr. Caitlin Martinez PLT 318 103/ul Normal 150-450 The Comment on above: Performed By: #### C VDTBH #### Laboratory [address] [place] [address] Dr. Caitlin Martinez RBC 3.23 106/ul Critically low 4.20-5.40 [facility] Comment on above: Performed By: #### C VDTBH #### Laboratory [address] [place] [address] Dr. Caitlin Martinez WBC 14.0 103/ul Critically high 4.0-11.0 [facility] Comment on above: Performed By: #### C VDTBH #### Laboratory [address] [place] [address] ABD/PELVIS WO CONon [...] DAVID BLACKMON Date: 2022-01-15 16:31 Normal The CULTURE URINEon 01-15-2022 CULTURE URINE Culture Observations : LIGHT GROWTH OF MIXED GENITAL COSME. NO POTENTIAL PATHOGENS SEEN. Normal The Comment on above: Performed By: #### U RCX #### Laboratory [address] [place] [address] Dr. Caitlin Martinez UA (CLEAN/CATCH) GENERAL MERCHANDISE SALESPERSON/MICRO I F IND.on 01-15-2022 Bilirubin Ql (U) Negative Normal NEGATIVE [facility] Comment on above: Performed By: #### C BC #### Laboratory [address] [place] [address] Dr. Caitlin Martinez Clarity (U) CLEAR Normal CLEAR [facility] Comment on above: Performed By: #### C BC #### Laboratory [address] [place] [address] Dr. Caitlin Martinez Color (U) LT. YELLOW Normal YELLOW [facility] Comment on above: Performed By: #### C BC #### Laboratory [address] [place] [address] Dr. Caitlin Martinez Glucose Ql (U) Negative Normal NEGATIVE [facility] Comment on above: Performed By: #### C BC #### Laboratory [address] [place] [address] Dr. Caitlin Martinez Hemoglobin Ql (U) Negative Normal NEGATIVE [facility] Comment on above: Performed By: #### C BC #### Laboratory [address] [place] [address] Dr. Caitlin Martinez Ketones Ql (U) Negative Normal NEGATIVE [facility] Comment on above: Performed By: #### C BC #### Laboratory [address] [place] [address] Dr. Caitlin Martinez LEUKOCYTES TRACE Abnormal NEGATIVE The Comment on above: Performed By: #### C BC #### Laboratory [address] [place] [address] Dr. Caitlin Martinez Nitrite Ql (U) Negative Normal NEGATIVE [facility] Comment on above: Performed By: #### C BC #### Laboratory [address] [place] [address] Dr. Caitlin Martinez pH (U) 7.0 [pH] Normal 5-9 [facility] Comment on above: Performed By: #### C BC #### Laboratory [address] [place] [address] Dr. Caitlin Martinez SPEC GRAVITY 1.010 Normal 1.005-<=1.025 [facility] Comment on above: Performed By: #### C BC #### Laboratory [address] [place] [address] Dr. Caitlin Martinez UA PROTEIN Negative Normal NEGATIVE/ TRACE The Comment on above: Performed By: #### C BC #### Laboratory [address] [place] [address] Dr. Caitlin Martinez UR MICRO IND INDICATED Normal The Comment on above: Performed By: #### C BC #### Laboratory [address] [place] [address] Dr. Caitlin Martinez Urobilinogen Qn (U) 0.2 {Barbara'U}/dL Normal 0.2 - 1. 0 [facility] Comment on above: Performed By: #### C BC #### Laboratory [address] [place] [address] Dr. Caitlin Martinez URINE MICROSCOPIC ONLYon BACTERIA MODERATE Abnormal NONE SEEN The Comment on above: Performed By: #### C BC #### Laboratory [address] [place] [address] Dr. Caitlin Martinez Bacteria identified Cx Nom (U) INDICATED Normal The Comment on above: Performed By: #### C BC #### Laboratory [address] [place] [address] Dr. Caitlin Martinez CAST NONE SEEN Normal NONE SEEN [facility] Comment on above: Performed By: #### C BC #### Laboratory [address] [place] [address] Dr. Caitlin Martinez Crystals LM Nom (Urine sed) NONE SEEN Normal NONE SEEN [facility] Comment on above: Performed By: #### C BC #### Laboratory [address] [place] [address] Dr. Caitlin Martinez Epithelial cells LM Ql (Urine sed) MODERATE Abnormal NONE SEEN /RARE The Comment on above: Performed By: #### C BC #### Laboratory [address] [place] [address] Dr. Caitlin Martinez MUCOUS NONE SEEN Normal NONE SEEN The Comment on above: Performed By: #### C BC #### Laboratory [address] [place] [address] Dr. Caitlin Martinez RBC NONE SEEN Abnormal 0-2 The Comment on above: Performed By: #### C BC #### Laboratory [address] [place] [address] Dr. Caitlin Martinez WBC 2-5 Abnormal NONE SEEN [facility] Comment on above: Performed By: #### C BC #### Laboratory [address] [place] [address] Dr. Caitlin Martinez US APPENDIXon 01-15-2022 US [...] DAVID BLACKMON Date: 2022-01-15 14:14 Normal The [place] PREG GROWTHon 01-15-2022 US PREG GROWTH [...] DAVID BLACKMON Date: 2022-01-15 10:59 Normal The US PREG PLACENTAon US PREG PLACENTA EXAMINATION: [...] DAVID BLACKMON Date: 2022-01-15 10:57 Normal The UA (CLEAN/CATCH) GENERAL MERCHANDISE SALESPERSON/MICRO I F IND.on 12-29-2021 Bilirubin Ql (U) Negative Normal NEGATIVE [facility] Comment on above: Performed By: #### C BC #### Laboratory [address] [place] [address] Dr. Caitlin Martinez Clarity (U) CLEAR Normal CLEAR The Comment on above: Performed By: #### C BC #### Laboratory [address] [address] [address] Caitlin Martinez Color (U) LT. YELLOW Normal YELLOW [facility] Comment on above: Performed By: #### C BC #### Laboratory [address] [place] [address] Dr. Caitlin Martinez Glucose Ql (U) Negative Normal NEGATIVE [facility] Comment on above: Performed By: #### C BC #### Laboratory [address] [place] [address] Dr. Caitlin Martinez Hemoglobin Ql (U) Negative Normal NEGATIVE [facility] Comment on above: Performed By: #### C BC #### Laboratory [address] [place] [address] Dr. Caitlin Martinez Ketones Ql (U) Negative Normal NEGATIVE [facility] Comment on above: Performed By: #### C BC #### Laboratory [address] [place] [address] Dr. Caitlin Martinez LEUKOCYTES Negative Normal NEGATIVE [facility] Comment on above: Performed By: #### C BC #### Laboratory [address] [place] [address] Dr. Caitlin Martinez Nitrite Ql (U) Negative Normal NEGATIVE [facility] Comment on above: Performed By: #### C BC #### Laboratory [address] [place] [address] Dr. Caitlin Martinez pH (U) 6.5 [pH] Normal 5-9 [facility] Comment on above: Performed By: #### C BC #### Laboratory [address] [place] [address] Dr. Caitlin Martinez SPEC GRAVITY 1.020 Normal 1.005-<=1.025 [facility] Comment on above: Performed By: #### C BC #### Laboratory [address] [place] [address] Dr. Caitlin Martinez UA PROTEIN Negative Normal NEGATIVE/ TRACE The Comment on above: Performed By: #### C BC #### Laboratory [address] [place] [address] Dr. Caitlin Martinez UR MICRO IND NOT INDICATED Normal [facility] Comment on above: Performed By: #### C BC #### Laboratory [address] [place] [address] Dr. Caitlin Martinez Urobilinogen Qn (U) 1.0 {Barbara'U}/dL Normal 0.2 - 1. 0 [facility] Comment on above: Performed By: #### C BC #### Laboratory [address] [place] [address] Dr. Caitlin Martinez US PREG CERVICAL LENGTHon [...] KIRK OATES Date: 2021-12-29 15:53 Normal The UA (CLEAN/CATCH) GENERAL MERCHANDISE SALESPERSON/MICRO I F IND.on 12-18-2021 Bilirubin Ql (U) Negative Normal NEGATIVE [facility] Comment on above: Performed By: #### C BC #### Laboratory [address] [place] [address] Dr. Caitlin Martinez Clarity (U) CLEAR Normal CLEAR The Comment on above: Performed By: #### C BC #### Laboratory [address] [place] [address] Dr. Caitlin Martinez Color (U) YELLOW Normal YELLOW [facility] Comment on above: Performed By: #### C BC #### Laboratory [address] [place] [address] Dr. Caitlin Martinez Glucose Ql (U) Negative Normal NEGATIVE [facility] Comment on above: Performed By: #### C BC #### Laboratory [address] [place] [address] Dr. Caitlin Martinez Hemoglobin Ql (U) Negative Normal NEGATIVE [facility] Comment on above: Performed By: #### C BC #### Laboratory [address] [place] [address] Dr. aCitlin Martinez Ketones Ql (U) TRACE Abnormal NEGATIVE [facility] Comment on above: Performed By: #### C BC #### Laboratory [address] [place] [address] Dr. Caitlin Martinez LEUKOCYTES Negative Normal NEGATIVE [facility] Comment on above: Performed By: #### C BC #### Laboratory [address] [place] [address] Dr. Caitlin Martinez Nitrite Ql (U) Negative Normal NEGATIVE [facility] Comment on above: Performed By: #### C BC #### Laboratory [address] [place] [address] Dr. Caitlin Martinez pH (U) 6.0 [pH] Normal 5-9 [facility] Comment on above: Performed By: #### C BC #### Laboratory [address] [place] [address] Dr. Caitlin Martinez SPEC GRAVITY 1.025 Normal 1.005-<=1.025 [facility] Comment on above: Performed By: #### C BC #### Laboratory [address] [place] [address] Dr. Caitlin Martinez UA PROTEIN Negative Normal NEGATIVE/ TRACE [facility] Comment on above: Performed By: #### C BC #### Laboratory [address] [place] [address] Dr. Caitlin Martinez UR MICRO IND NOT INDICATED Normal [facility] Comment on above: Performed By: #### C BC #### Laboratory [address] [place] [address] Dr. Caitlin Martinez Urobilinogen Qn (U) 4 {Barbara'U}/dL Abnormal 0.2 - 1.0 [facility] Comment on above: Performed By: #### C BC #### Laboratory [address] [place] [address] Dr. Caitlin Martinez RHOGAMon 11-28-2021 RHOGAM Status Information Issued Quantity 1 Product ID Rh Immune Globulin Lot Number [id number] Issue Date/Time [id number] Normal [facility] Comment on above: Performed By: #### I HORACIO #### Laboratory [address] [place] [address] Dr. Caitlin Martinez TYPE AND SCREENon 11-27-2021 TYPE AND SCREEN Negative Normal [facility] Comment on above: Performed By: #### T NS #### Laboratory [address] [place] [address] Dr. Caitlin Martinez CULTURE URINEon 11-23-2021 CULTURE URINE Culture Observations : No growth Normal [facility] Comment on above: Performed By: #### I HORACIO #### Laboratory [address] [address] [address] Caitlin Martinez UA (CLEAN/CATCH) GENERAL MERCHANDISE SALESPERSON/MICRO I F IND.on 11-23-2021 Bilirubin Ql (U) Negative Normal NEGATIVE [facility] Comment on above: Performed By: #### U RCX #### Laboratory [address] [place] [address] Dr. Caitlin Martinez Clarity (U) CLEAR Normal CLEAR [facility] Comment on above: Performed By: #### U RCX #### Laboratory [address] [place] [address] Dr. Caitlin Martinez Color (U) LT. YELLOW Normal YELLOW The Comment on above: Performed By: #### U RCX #### Laboratory [address] [place] [address] Dr. Caitlin Martinez Glucose Ql (U) Negative Normal NEGATIVE [facility] Comment on above: Performed By: #### U RCX #### Laboratory [address] [place] [address] Dr. Caitlin Martinez Hemoglobin Ql (U) Negative Normal NEGATIVE [facility] Comment on above: Performed By: #### U RCX #### Laboratory [address] [place] [address] Dr. Caitlin Martinez Ketones Ql (U) Negative Normal NEGATIVE [facility] Comment on above: Performed By: #### U RCX #### Laboratory [address] [place] [address] Dr. Caitlin Martinez LEUKOCYTES SMALL Abnormal NEGATIVE [facility] Comment on above: Performed By: #### U RCX #### Laboratory [address] [address] [address] Caitlin Martinez Nitrite Ql (U) Negative Normal NEGATIVE [facility] Comment on above: Performed By: #### U RCX #### Laboratory [address] [place] [address] Dr. Caitlin Martinez pH (U) 6.5 [pH] Normal 5-9 The Comment on above: Performed By: #### U RCX #### Laboratory [address] [place] [address] Dr. Caitlin Martinez SPEC GRAVITY 1.010 Normal 1.005-<=1.025 [facility] Comment on above: Performed By: #### U RCX #### Laboratory [address] [place] [address] Dr. Caitlin Martinez UA PROTEIN Negative Normal NEGATIVE/ TRACE The Comment on above: Performed By: #### U RCX #### Laboratory [address] [place] [address] Dr. Caitlin Martinez UR MICRO IND INDICATED Normal The Comment on above: Performed By: #### U RCX #### Laboratory [address] [place] [address] Dr. Caitlin Martinez Urobilinogen Qn (U) 0.2 {Barbara'U}/dL Normal 0.2 - 1. 0 [facility] Comment on above: Performed By: #### U RCX #### Laboratory [address] [place] [address] Dr. Caitlin Martinez URINE MICROSCOPIC ONLYon BACTERIA TRACE Abnormal NONE SEEN [facility] Comment on above: Performed By: #### U RCX #### Laboratory [address] [place] [address] Dr. Caitlin Martinez Bacteria identified Cx Nom (U) INDICATED Normal The Comment on above: Performed By: #### U RCX #### Laboratory [address] [place] [address] Dr. Caitlin Martinez CAST SEEN Abnormal NONE SEEN [facility] Comment on above: Performed By: #### U RCX #### Laboratory [address] [place] [address] Dr. Caitlin Martinez Crystals LM Nom (Urine sed) SEEN Abnormal NONE SEEN [facility] Comment on above: Performed By: #### U RCX #### Laboratory [address] [place] [address] Dr. Caitlin Martinez Epithelial cells LM Ql (Urine sed) RARE Normal NONE SEEN /RARE The Comment on above: Performed By: #### U RCX #### Laboratory [address] [place] [address] Dr. Caitlin Martinez MUCOUS TRACE Abnormal NONE SEEN The Comment on above: Performed By: #### U RCX #### Laboratory [address] [place] [address] Dr. Caitlin Martinez RBC 0-2 Normal 0-2 [facility] Comment on above: Performed By: #### U RCX #### Laboratory [address] [place] [address] Dr. Caitlin Martinez WBC 2-5 Abnormal NONE SEEN The Comment on above: Performed By: #### U RCX #### Laboratory [address] [place] [address] Dr. Caitlin Martinez GLUCOSE - 1HRon 11-06-2021 Glucose [Mass/Vol] 131 mg/dL Critically high 74-106 [facility] Comment on above: Performed By: #### I HORACIO #### Laboratory [address] [place] [address] Dr. Caitlin Martinez HEMOGRAM AND PLATELon 2021 Hematocrit (Bld) [Volume fraction] 34.2 % Critically low 36.0-48.0 [facility] Comment on above: Performed By: #### C BC #### Laboratory [address] [place] [address] Dr. Caitlin Martinez Hemoglobin (Bld) [Mass/Vol] 11.3 g/dL Critically low 12.0-16.0 [facility] Comment on above: Performed By: #### C BC #### Laboratory [address] [place] [address] Dr. Caitlin Martinez MCH (RBC) [Entitic mass] 31.7 pg Normal 26.7-34.0 [facility] Comment on above: Performed By: #### C BC #### Laboratory [address] [place] [address] Dr. Caitlin Martinez MCHC (RBC) [Mass/Vol] 33.0 g/dL Normal 29.9-35.2 The Comment on above: Performed By: #### C BC #### Laboratory [address] [place] [address] Dr. Caitlin Martinez MCV (RBC) [Entitic vol] 96.1 fL Normal 81.0-99.0 The Comment on above: Performed By: #### C BC #### Laboratory [address] [place] [address] Dr. Caitlin Martinez PLT 372 103/ul Normal 150-450 The Comment on above: Performed By: #### C BC #### Laboratory [address] [place] [address] Dr. Caitlin Martinez RBC 3.56 106/ul Critically low 4.20-5.40 [facility] Comment on above: Performed By: #### C BC #### Laboratory [address] [place] [address] Dr. Caitlin Martinez WBC 10.1 103/ul Normal 4.0-11.0 The Comment on above: Performed By: #### C BC #### Laboratory [address] [place] [address] Dr. Caitlin Martinez CHLAMYDIA/GONOCOCCUS JONATAN (SW AB/URINE/PAPon 10-31-2021 Chlamydia trachomatis, JONATAN Negative Normal Negative The Comment on above: Performed By: #### C BC #### Laboratory [address] [place] [address] Dr. Caitlin Martinez Neisseria gonorrhoeae, JONATAN Negative Normal Negative The Comment on above: Performed By: #### C BC #### Laboratory [address] [place] [address] Dr. Caitlin Martinez VAGINITIS/VAGINOSIS DNA PROB Paramjit 10-29-2021 Selena species Negative Normal Negative [facility] Comment on above: Performed By: #### U RCX #### Laboratory [address] [address] [address] Caitlin Martinez Gardnerella vaginalis Negative Normal Negative The Comment on above: Performed By: #### U RCX #### Laboratory [address] [address] [address] Caitlin Martinez Trichomonas vaginalis Negative Normal Negative The Comment on above: Performed By: #### U RCX #### Laboratory [address] [address] [address] Caitlin Martinez US PREG INCOMPLETE ANATOMYon [...] DAVID BLACKMON Date: 2021-10-26 12:05 Normal The CBC W MANUAL DIFFon 10-25-19 22 ATYPICAL LYMPH # Normal [facility] Comment on above: Performed By: #### U RCX #### Laboratory [address] [place] [address] Dr. Caitlin Martinez ATYPICAL LYMPH % Normal [facility] Comment on above: Performed By: #### U RCX #### Laboratory [address] [place] [address] Dr. Caitlin Martinez BAND # 0.1 103/ul Normal 0.0-0.3 The Comment on above: Performed By: #### U RCX #### Laboratory [address] [place] [address] Dr. Caitlin Martinez BAND % 1 % Normal 0-5 The Comment on above: Performed By: #### U RCX #### Laboratory [address] [place] [address] Dr. Caitlin Martinez BASOM # 0.00 103/ul Normal 0.00-0.10 [facility] Comment on above: Performed By: #### U RCX #### Laboratory [address] [address] [address] Caitlin Martinez BASOM % 0.0 % Critically low 0.2-2.0 [facility] Comment on above: Performed By: #### U RCX #### Laboratory [address] [address] [address] Caitlin Martinez BLAST # Normal [facility] Comment on above: Performed By: #### U RCX #### Laboratory [address] [place] [address] Dr. Caitlin Martinez BLAST % Normal [facility] Comment on above: Performed By: #### U RCX #### Laboratory [address] [place] [address] Dr. Caitlin Martinez CORRECTED WBC Normal 4.0-11.0 [facility] Comment on above: Performed By: #### U RCX #### Laboratory [address] [place] [address] Dr. Caitlin Martinez EOS # 0.12 103/ul Normal 0.00-0.70 [facility] Comment on above: Performed By: #### U RCX #### Laboratory [address] [place] [address] Dr. Caitlin aMrtinez EOS% 1.0 % Normal 0.9-7.0 The Comment on above: Performed By: #### U RCX #### Laboratory [address] [place] [address] Dr. Caitlin Martinez HCT 31.5 % Critically low 36.0-48.0 [facility] Comment on above: Performed By: #### U RCX #### Laboratory [address] [place] [address] Dr. Caitlin Martinez HGB 10.5 g/dl Critically low 12.0-16.0 [facility] Comment on above: Performed By: #### U RCX #### Laboratory [address] [place] [address] Dr. Caitlin Martinez LYMPHM # 0.37 103/ul Critically low 1.20-3.80 [facility] Comment on above: Performed By: #### U RCX #### Laboratory [address] [place] [address] Dr. Caitlin Martinez LYMPHM% 3.0 % Critically low 20.5-60.0 [facility] Comment on above: Performed By: #### U RCX #### Laboratory [address] [place] [address] Dr. Caitlin Martinez MCH 31.8 pg Normal 26.7-34.0 [facility] Comment on above: Performed By: #### U RCX #### Laboratory [address] [place] [address] Dr. Caitlin Martinez MCHC 33.3 g/dl Normal 29.9-35.2 The Comment on above: Performed By: #### U RCX #### Laboratory [address] [place] [address] Dr. Caitlin Martinez MCV 95.5 fL Normal 81.0-99.0 The Comment on above: Performed By: #### U RCX #### Laboratory [address] [place] [address] Dr. Caitlin Martinez METAMYELOCYTE # Normal [facility] Comment on above: Performed By: #### U RCX #### Laboratory [address] [place] [address] Dr. Caitlin Martinez METAMYELOCYTE % Normal [facility] Comment on above: Performed By: #### U RCX #### Laboratory [address] [place] [address] Dr. Caitlin Martinez MONOM# 0.73 103/ul Normal 0.30-0.80 The Comment on above: Performed By: #### U RCX #### Laboratory [address] [place] [address] Dr. Caitlin Martinez MONOM% 6.0 % Normal 1.7-12.0 The Comment on above: Performed By: #### U RCX #### Laboratory [address] [address] [address] Caitlin Martinez MPV 9.5 fL Normal 9.5-13.5 [facility] Comment on above: Performed By: #### U RCX #### Laboratory [address] [address] [address] Caitlin Martinez MYELOCYTE # Normal [facility] Comment on above: Performed By: #### U RCX #### Laboratory [address] [address] [address] Caitlin Martinez MYELOCYTE % Normal [facility] Comment on above: Performed By: #### U RCX #### Laboratory [address] [address] [address] Caitlin Martinez NRBC Normal [facility] Comment on above: Performed By: #### U RCX #### Laboratory [address] [address] [address] Caitlin Martinez PLT 275 103/ul Normal 150-450 [facility] Comment on above: Performed By: #### U RCX #### Laboratory [address] [address] [address] Caitlin Martinez RBC 3.30 106/ul Critically low 4.20-5.40 [facility] Comment on above: Performed By: #### U RCX #### Laboratory [address] [address] [address] Caitlin Martinez RDW 13.6 % Normal 11.0-15.0 [facility] Comment on above: Performed By: #### U RCX #### Laboratory [address] [address] [address] Caitlin Martinez SEG # 10.86 103/ul Critically high 1.40-6.50 [facility] Comment on above: Performed By: #### U RCX #### Laboratory [address] [address] [address] Caitlin Martinez SEG % 89.0 % Critically high 43.0-75.0 [facility] Comment on above: Performed By: #### U RCX #### Laboratory [address] [address] [address] Caitlin Martinez WBC 12.2 103/ul Critically high 4.0-11.0 [facility] Comment on above: Performed By: #### U RCX #### Laboratory [address] [place] [address] Dr. Caitlin Martinez ER URINE PROFILEon 2 Bilirubin Ql (U) Negative Normal NEGATIVE [facility] Comment on above: Performed By: #### C VDTBH #### Laboratory [address] [place] [address] Dr. Caitlin Martinez Clarity (U) SL CLOUDY Abnormal CLEAR The Comment on above: Performed By: #### C VDTBH #### Laboratory [address] [place] [address] Dr. Caitlin Martinez Color (U) YELLOW Normal YELLOW [facility] Comment on above: Performed By: #### C VDTBH #### Laboratory [address] [place] [address] Dr. Caitlin PRICE A micrscopic examination will be performed if indicated. Normal The Comment on above: Performed By: #### C VDTBH #### Laboratory [address] [place] [address] Dr. Caitlin Martinez Glucose Ql (U) Negative Normal NEGATIVE [facility] Comment on above: Performed By: #### C VDTBH #### Laboratory [address] [place] [address] Dr. Caitlin Martinez Hemoglobin Ql (U) Negative Normal NEGATIVE [facility] Comment on above: Performed By: #### C VDTBH #### Laboratory [address] [place] [address] Dr. Caitlin Martinez Ketones Ql (U) >=80 Abnormal NEGATIVE [facility] Comment on above: Performed By: #### C VDTBH #### Laboratory [address] [place] [address] Dr. Caitlin Martinez LEUKOCYTES Negative Normal NEGATIVE [facility] Comment on above: Performed By: #### C VDTBH #### Laboratory [address] [place] [address] Dr. Caitlin Martinez Nitrite Ql (U) Negative Normal NEGATIVE [facility] Comment on above: Performed By: #### C VDTBH #### Laboratory [address] [place] [address] Dr. Caitlin Martinez pH (U) 6.0 [pH] Normal 5-9 The Comment on above: Performed By: #### C VDTBH #### Laboratory [address] [place] [address] Dr. Caitlin Martinez SPEC GRAVITY 1.020 Normal 1.005-<=1.025 [facility] Comment on above: Performed By: #### C VDTBH #### Laboratory [address] [place] [address] Dr. Caitlin Martinez UA PROTEIN Negative Normal NEGATIVE/ TRACE The Comment on above: Performed By: #### C VDTBH #### Laboratory [address] [place] [address] Dr. Caitlin Martinez UR MICRO IND NOT INDICATED Normal [facility] Comment on above: Performed By: #### C VDTBH #### Laboratory [address] [place] [address] Dr. Caitlin Martinez Urobilinogen Qn (U) 1.0 {Barbara'U}/dL Normal 0.2 - 1. 0 [facility] Comment on above: Performed By: #### C VDTBH #### Laboratory [address] [place] [address] Dr. Caitlin Martinez INFLUENZA A AND B [facility] 10[facility] Normal The Comment on above: Result Comment: Nega tive for Flu B protein antigen. Infection due to Flu B cannot be ruled out. Flu B antigen in the sample may be below the detection limit of the test. Performed By: #### C VDTBH #### Laboratory [address] [place] [address] Dr. Caitlin Martinez INFLUENZA A AG Positive Abnormal NEGATIVE SEE COMMENT The Comment on above: Performed By: #### C VDTBH #### Laboratory [address] [place] [address] Dr. Caitlin Martinez INFLUENZA B AG Negative Normal NEGATIVE SEE COMMENT The Comment on above: Performed By: #### C VDTBH #### Laboratory [address] [address] [address] Caitlin Martinez INFLUPOSH SEE BELOW Normal [facility] Comment on above: Result Comment: NOTE : Live attenuated influenzae vaccine viruses can cause a positive result for a rapid influenza diagnostic test if administered up to 7 days prior to rapid testing. Performed By: #### C VDTBH #### Laboratory [address] [place] [address] Dr. Caitlin Martinez INTERNAL CONTROLS Within Normal Limits Normal Wi thin Normal Limits [facility] Comment on above: Performed By: #### C VDTBH #### Laboratory [address] [place] [address] Dr. Caitlin Martinez PROF CHEM 8 (BAS METB)on Anion gap [Moles/Vol] 14.4 mmol/L Normal [facility] Comment on above: Performed By: #### D TRACY MELGOZA #### Laboratory [address] [place] [address] Dr. Cailtin Martinez Calcium [Mass/Vol] 8.4 mg/dL Critically low 8.5-10.1 [facility] Comment on above: Performed By: #### TRACY TIRADO #### Laboratory [address] [place] [address] Dr. Caitlin Martinez Chloride [Moles/Vol] 101 mmol/L Normal 98-107 [facility] Comment on above: Performed By: #### D AMRIT MELGOZAD #### Laboratory [address] [place] [address] Dr. Caitlin Martinez CO2 [Moles/Vol] 19.7 mmol/L Critically low 21.0-32.0 [facility] Comment on above: Performed By: #### D RHONA ABINadine #### Laboratory [address] [place] [address] Dr. Caitlin Martinez Creatinine [Mass/Vol] 0.55 mg/dL Normal 0.55-1.02 [facility] Comment on above: Performed By: #### D IRCMB, ABID #### Laboratory [address] [address] [address] Caitlin Martinez EGFR-AF WELSH >60 Normal >=60 [facility] Comment on above: Performed By: #### D IRCMB, ABID #### Laboratory [address] [address] [address] Caitlin Martinez EGFR-NON AF WELSH >60 Normal >=60 [facility] Comment on above: Performed By: #### D IRCMB, ABID #### Laboratory [address] [address] [address] Caitlin Martinez Glucose [Mass/Vol] 91 mg/dL Normal 74-106 [facility] Comment on above: Performed By: #### D IRCMB, ABID #### Laboratory [address] [place] [address] Dr. Caitlin Martinez Potassium [Moles/Vol] 3.1 mmol/L Critically low 3.5-5.1 [facility] Comment on above: Performed By: #### D IRCMB, ABID #### Laboratory [address] [place] [address] Dr. Caitlin Martinez Sodium [Moles/Vol] 132 mmol/L Critically low 136-145 [facility] Comment on above: Performed By: #### D IRCMB, ABID #### Laboratory [address] [place] [address] Dr. Caitlin Martinez Urea nitrogen [Mass/Vol] 7.0 mg/dL Normal 7.0-18.0 [facility] Comment on above: Performed By: #### D IRCMB, ABID #### Laboratory [address] [place] [address] Dr. Caitlin Martinez Urea nitrogen/Creatinine [Mass ratio] 12.7 mg/mg Normal [facility] Comment on above: Performed By: #### D IRCMB, ABID #### Laboratory [address] [address] [address] Caitlin Martinez US PREG ANATOMY SINGLEon [...] BLACKMON Date: 2021-09-28 09:17 Normal [facility] CHEMISTRYOrdered By: SYSTEM SYSTEM on 06-21-2021 [place] [address] m[IU]/mL High 1 - 3 mIU/mL [facility] Remisol XR LUMBAR SPINE 2-3 VIEWS (S [...] gas pattern is nonobstructive. There is a jykkabav-bb-uogfo amount of stool burden. IMPRESSION: No malalignment. No acute compression deformity. Ychfudmm-xx-sveby amount of stool burden. [employer] Workstation ID: [id number] Dictated by: LUBA GARCÍA on [facility] Mar 05, 2020 4:09:51 PM EDT Transcribed by: KELVIN GUADALUPE on [facility] Mar 05, 2020 4:17:18 PM EDT Finalized by: LUBA GARCÍA on [facility] Mar 05, 2020 7:52:11 PM EDT [facility] Comment on above: Order Comment: Injur y/Trauma or Illness?:Illness/Other How long have you had these symptoms (acute/chronic)?:Chronic Reason for exam?:low back pain History of cancer?:n Surgeries, chemotherapy, or radiation?:n Type of Exam?:Initial Additional signs and symptoms?:fibromyalgia XR Lumbar Spine 2-3 Views (S tandard)on 03-05-2020 No malalignment. No acute compression deformity. Thpeldoy-fg-mvpgq amount of stool burden. [employer] Workstation ID: [id number] [facility] EXAMINATION: XR LUMBAR SPINE 2-3 VIEWS [...] gas pattern is nonobstructive. There is a yukkvnfq-nv-omwzm amount of stool burden. [facility] Interface, Rad In Jose Luis Speechq [...] gas pattern is nonobstructive. There is a tmybrihx-kw-fnzif amount of stool burden. IMPRESSION: No malalignment. No acute compression deformity. Juemzruv-bg-akjeb amount of stool burden. [employer] Workstation ID: [id number] [facility] CNOVon 10-28-2018 CNOV Office Visit (OLVIN ) SANDY GODINEZ ([id number]) 1995 F Date Time Provider Department 10/28/18 [...] Farrah Garcia MD [address] [id number] Consult requested for an opinion regarding the [...] TIME: 12:44 PM Referring Provider: FARRAH GARCIA [[id number]] Allergies As of Date: 10/28/2018 (No Known [...] RODRIGUEZ MD on 10/29/18 Normal [facility] 10-28-2018 Protein mass conc HNO ID: [id number] Author: Warren Rodriguez Service: ? Author Type: Physician Type: Progress Notes Filed: 10/29/2018 3:03 PM Note Text: VASCULAR SURGERY INITIAL CONSULT SERVICE DATE: 10/28/2018 SERVICE TIME: 12:44 PM PRIMARY CARE PHYSICIAN: Farrah Garcia MD REFERRING PROVIDER: Farrah Garcia MD [address] [facility] [id number] Consult requested for an opinion regarding the [...] October 28, 2018 TIME: 12:44 PM Normal [facility] Vital Signs Date Time Vital Sign Value Performing Clinician Faci lity 07-19-2023 09:31-0500 Body mass index (BMI) [Ratio] 26.79 kg/m2 [facility] Nurse [facility] 07-19-2023 09:31-0500 Body weight 73.03 kg [facility] Nurse [facility] 07-19-2023 09:31-0500 Diastolic blood pressure 72 mm[Hg] [facility] Nurse [facility] 07-19-2023 09:31-0500 Systolic blood pressure 118 mm[Hg] [facility] Nurse [facility] Encounters Encounter Date Encounter Type Care Provider Facility Start: 01-20-2024 End: 01-20-2024 ambulatory JOSE MIGUEL CAMPUZANO Not Available Start: 01-06-2024 End: 01-06-2024 ambulatory MICHAEL CHAN Not Available Start: 12-23-2023 End: 12-23-2023 ambulatory JOSE MIGUEL JUSTEN Not Available Start: 12-05-2023 End: 12-05-2023 ambulatory JOSE MIGUEL JUSTEN Not Available Start: 11-25-2023 End: 11-25-2023 ambulatory JOSE MIGUEL JUSTEN Not Available Start: 11-12-2023 End: 11-12-2023 ambulatory JOSE MIGUEL JUSTEN Not Available Start: 11-07-2023 End: 11-08-2023 ambulatory JOSE MIGUEL R JUSTEN [facility] Start: 10-15-2023 End: 10-15-2023 ambulatory JOSE MIGUEL [...] Not Available Start: 07-08-2023 ambulatory Royer Layne acility:[facility] [...] 06-21-2021 End: 09-19-2021 Recurring Jose Miguel CAMPUZANO [facility] Start: 03-05-2020 End: 03-06-2020 Patient encounter procedure [facility] Start: 03-05-2020 End: 03-05-2020 Subsequent hospital visit by physician Vibha Johnson Work Phone: [facility] Comment on above: Chronic low [...] encounter procedure 08/19/2023 11:10 AM EST Routine [facility] [address] [place] [id number] Jose Miguel Campuzano, DO [address] [place] [address] [facility] Start: 07-19-2023 End: 07-19-2024 ABO/Rh [...] Missed menses Expected: 07/19/2023 (Approximate), Expires: 07/19/2024 [facility] Comment on above: Expected: 07/19/2023 (Approximate), Expires: 07/19/2024 Start: 02-16-2020 Influenza vaccinatio n given Sequential Influenza Vaccine (#1) [facility] Start: 2014 Hepatitis C antibody , confirmatory test Hepatitis C Screening [facility] Start: 08-31-2011 HIV screening HIV Screening [facility] Start: 08-31-2007 Vaccination for [place] papillomavirus HPV Vaccines (1 - 2-dose series) [facility] Start: 08-31-1999 History and physical examination, annual for health maintenance Wellness Visit [facility] Start: 1996 Screening for Chlamy tristan trachomatis Chlamydia Screening [facility] Start: 1996 Screening for malign ant neoplasm of cervix Pap Smear [facility] Start: 1996 Tetanus vaccination Tetanus: Every [address] [facility] Bacteria identified in Urine by Culture Urine culture Microbiology Routine Missed menses Ordered: 07/19/2023 [facility] Comment on above: Ordered: 07/19/2023 CBC W Auto Different ial panel - Blood CBC and differential Lab Routine Missed menses Ordered: 07/19/2023 [facility] Comment on above: Ordered: 07/19/2023 Hemoglobin A1c measurement Hemoglobin A1c Lab Routine Missed menses Ordered: 07/19/2023 [facility] Comment on above: Ordered: 07/19/2023 Hepatitis B virus knight rface Ag [Presence] in Serum or Plasma by Immunoassay Hepatitis B surface antigen Lab Routine Missed menses Ordered: 07/19/2023 [facility] Comment on above: Ordered: 07/19/2023 Hepatitis C virus Ab [Presence] in Serum or Plasma by Immunoassay Hepatitis C antibody Lab Routine Missed menses Ordered: 07/19/2023 [facility] Comment on above: Ordered: 07/19/2023 HIV-1/HIV-2 antigen/antibody combination immunoassay HIV-1 and HIV-2 antibodies Lab Routine Missed menses Ordered: 07/19/2023 [facility] Comment on above: Ordered: 07/19/2023 Reagin Ab [Presence] in Serum by RPR RPR Lab Routine Missed menses Ordered: 07/19/2023 [facility] Comment on above: Ordered: 07/19/2023 Rubella antibody, IgG Rubella an tibody, IgG Lab Routine Missed menses Ordered: 07/19/2023 [facility] Comment on above: Ordered: 07/19/2023 Payers Date Payer Category Payer Self-pay 2022 Medicaid [employer] [place] [id number] 2022-Present [address] [place] [address] [id number] 1996 Unknown [id number] 2.16.840.1.909334.3.579.2.903 1996 Unknown [id number] 2.16.840.1.080816.3.579.2.593 1996 Unknown [id number] 2.16.840.1.396215.3.579.2.593 1996 Unknown [id number] 2.16.840.1.522884.3.579.2.593 1996 Unknown [id number] 2.16.840.1.893309.3.579.2.593 1996 Unknown [id number] 2.16.840.1.869970.3.579.2.593 1996 Unknown [id number] 2.16.840.1.986443.3.579.2.593 1996 Unknown [id number] 2.16.840.1.851930.3.579.2.593 1996 Unknown [id number] 2.16.840.1.327800.3.579.2.593 1996 Unknown [id number] 2.16.840.1.515372.3.579.2.593 1996 Unknown [id number] 2.16.840.1.029967.3.579.2.593 1996 Unknown [id number] 2.16.840.1.748266.3.579.2.593 1996 Unknown [id number] 2.16.840.1.978702.3.579.2.593 1996 Unknown [id number] 2.16.840.1.533486.3.579.2.593 1996 Unknown [id number] 2.16.840.1.585411.3.579.2.593 1996 Unknown [id number] 2.16.840.1.801926.3.579.2.593 1996 Unknown [id number] 2.16.840.1.472625.3.579.2.593 1996 Unknown [id number] 2.16.840.1.898707.3.579.2.593 1996 Unknown [id number] 2.16.840.1.701731.3.579.2.593 1996 Unknown [id number] 2.16.840.1.863818.3.579.2.593 1996 Unknown [id number] 2.16.840.1.668593.3.579.2.593 1996 Unknown [id number] 2.16.840.1.565844.3.579.2.593 1996 Unknown [id number] 2.16.840.1.056575.3.579.2.1286 1996 Unknown [id number] 2.16.840.1.036074.3.579.2.1286 1996 Unknown [id number] 2.16.840.1.902530.3.579.2.1259 1996 Unknown [id number] 2.16.840.1.643028.3.579.2.1259 1996 Unknown [id number] 2.16.840.1.986806.3.579.2.1258 1996 Unknown [id number] 2.16.840.1.753269.3.579.2.1258 1996 Unknown [id number] 2.16.840.1.946526.3.579.2.1258 1996 Unknown [id number] 2.16.840.1.861496.3.579.2.1258 1996 Unknown [id number] 2.16.840.1.281840.3.579.2.1258 1996 Unknown [id number] 2.16840.1.269944.3.579.2.1258 1996 Unknown [id number] 2.16840.1.478144.3.579.2.1258 1996 Unknown [id number] 2.16840.1.367119.3.579.2.1258 1996 Unknown [id number] 2.16.840.1.391902.3.579.2.9 1959 Unknown [id number] 1959 Unknown [id number] Unknown [employer] RCIAL MISCELLANEOUS [id number] Effective for all dates [id number] 1.2.840.112064.1.13.385.2.7.3. 247331.315 Unknown [id number] Unknown [id number] 2.16.840.1.420646.3.579.2.531 Social History Date Type Detail Facility [facility] Sex Assigned At Not on file [facility] Start: 12-07-2022 Sex Assigned At Female [facility] Start: 12-07-2022 Tobacco smoking status NHIS Never smoked tobacco [facility] Start: 07-19-2023 Alcohol intake Current drinker of alcohol (finding) [facility] Start: 12-07-2022 History of Social function [facility] Start: 12-07-2022 Alcohol Comment 1-2 drinks less than monthly in the past year [facility] Start: 05-31-2023 [facility] Start: 1995 Sex Assigned At Female [facility] Start: 11-29-2022 Gender identity Identifies as female gender (finding) [facility] Healthcare Start: 11-29-2022 Sexual orientation Heterosexual (finding) [facility] History of Present illness Narrative 07-19-2023 [...] Procedure Laterality Date DILATION AND CURETTAGE 2018 MS TONSILLECTOMY & ADENOIDECTOMY AGE 12/ 2015 WISDOM TOOTH EXTRACTION Allergies Allergen Reactions [...] sent for nausea to pharmacy. Pt desires [place] [address] and understands to have it done at 10 weeks along w/her labs. Follow Up: Patient is to have labs drawn at directed and return to office for initial OB appointment with provider. Patient may call office as needed with any concerns or questions. Nurse Visit Completed by: Cori Daniel MA documented in this encounter [facility] Clinical Note 01-16-2022 Note [...] Cecelia FOOTE Date: 2022-01-16 21:33 [facility] Clinical Note 01-16-2022 Note Date & Type [...] Cecelia FOOTE Date: 2022-01-16 21:33 [facility] Clinical Note 01-15-2022 Note Date & Type [...] authenticated by: IGOR DIAZ Date: 2022-01-15 10:10 [facility] Evaluation + Plan note Note Date & Type Note Facility Evaluation + Plan note No data available for this section [facility] Evaluation note Note Date & Type Note Facility Evaluation note Diagnosis Missed menses Nausea Nausea alone documented in this encounter [facility] Hospital Discharge instructions Note Date & Type Note Facility Hospital Discharge instructions No data available for this section [facility] Summary Purpose Family History No Family History Records FoundNo Family History Records FoundNo Family History Records FoundNo Family History Records FoundNo Family History Records FoundNo Family History Records FoundNo Family History Records Found Advance Directives No Advanced Directives Records FoundDocuments on File Type Date Recorded 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 Advance Directives and Livin g Will 03/05/2020 2:18 PM Assessments Diagnosis Chronic low back pain, unspecified back pain laterality, unspecified whether sciatica present Additional Source Comments INFORMATION SOURCE (unrecogn ized section and content) DATE CREATED AUTHOR 11/08/2018 [facility] DATE CREATED AUTHOR AUTHOR'S ORGANIZ ATION 03/21/2020 [facility] DATE CREATED AUTHOR AUTHOR'S ORGANIZ ATION 08/04/2022 [facility] DATE CREATED AUTHOR AUTHOR'S ORGANIZ ATION 09/06/2022 [facility] DATE CREATED AUTHOR AUTHOR'S ORGANIZ ATION 09/17/2023 [facility] DATE CREATED AUTHOR AUTHOR'S ORGANIZ ATION 11/09/2023 [facility] DATE CREATED AUTHOR AUTHOR'S ORGANIZ ATION 01/22/[address] [facility] EPIC Reason for Visit [...] BE BASED ON THE PRIMARY CLINICAL RECORDS. [employer] provides no warranty or guarantee of the accuracy or completeness of information in this document.
== END 2024-01-27 19:39 | disposition home or self-care (01) ==
LOC: LAB 19:38
PROVIDERS: PCP Nurse Practitioner Family; Visit Provider Obstetrics & Gynecology
DX: Z34.93 Encounter for supervision of normal pregnancy, unspecified, third trimester (principal); Z3A.36 36 weeks gestation of pregnancy
CPT/HCPCS: 36415; 87081; 87150

== ENCOUNTER 2024-01-29 16:22 | Observation (INO) | payer OTHER, SELFPAY ==
[2024-01-29 16:36] VITALS: BP 118/83; PULSE 100
[2024-01-29 16:59] LABS: Bilirubin Urine NEGATIVE (NEGATIVE); Blood Urine NEGATIVE (NEGATIVE); Clarity Urine CLEAR (CLEAR); Color Urine LT. YELLOW (YELLOW); Glucose Urine UA NEGATIVE (NEGATIVE); Ketones Urine NEGATIVE (NEGATIVE); Leukocyte Esterase Urine TRACE (NEGATIVE); Nitrite Urine NEGATIVE (NEGATIVE); Protein Urine NEGATIVE (NEG/TRACE); Urobilinogen Urine 0.2 EU/dL (0.2-1.0)
[2024-01-29 17:09] LABS: Urine Microscopic Indicated YES
[2024-01-29] MEDS: FLUCONAZOLE 150 MG TABLET PO (17:28)
[2024-01-29 17:30] LABS: Bacteria Urine MODERATE #/HPF (NONE SEEN); Cast Seen? NONE SEEN #/LPF (NONE SEEN); Crystals Seen? None Seen #/HPF (None Seen); Mucus Urine TRACE (NONE SEEN); RBC Urine 0-2 #/HPF (0-2); Squamous Epithelial Cell Urine FEW #/LPF (NONE/RARE); Transitional Epi Cells Urine RARE #/LPF (NONE SEEN); Urine Culture Indicated YES
[2024-01-29] MEDS: ACETAMINOPHEN 500 MG TABLET 1000 MG PO (19:15)
== END 2024-01-29 20:55 | disposition home or self-care (01) ==
LOC: FBC 16:24
PROVIDERS: Admitting Provider Obstetrics & Gynecology; PCP Nurse Practitioner Family; Visit Provider Obstetrics & Gynecology
DX: O47.03 False labor before 37 completed weeks of gestation, third trimester (principal); Z3A.36 36 weeks gestation of pregnancy
CPT/HCPCS: 59025; 81001; 87086; G0378; G0379

== ENCOUNTER 2024-02-03 07:09 | Outpatient (OUT) | payer OTHER, SELFPAY ==
--- NOTE | 2024-02-03 | US_ITS ---
[address] [address] Patient Name: SANDY GODINEZ MRN: [id number] date: 1995 Sex: F Assigned Patient Location: [facility] Current Patient Location: Accession/Order Number: [id number] Exam Date: 02/03/2024 11:30 Report Date: 02/03/2024 16:27 At the request of: JOSE MIGUEL BOATENG Procedure: US OB umbilical artery EXAMINATION: US OB umbilical artery HISTORY: Two vessel umbilical cord COMPARISON: No relevant comparison available. TECHNIQUE: Duplex Doppler evaluation of the umbilical arteries. FINDINGS: Single umbilical artery position: Cephalic presentation, longitudinal lie Amniotic fluid: 14.0 cm, largest fluid pocket 5.7 cm Proximal umbilical artery: 82/48 cm/s. Resistive index 0.41. Ratio 1.7 Mid umbilical artery: 151, 68 cm/s. Resistive index 0.55. Ratio 2.2 Distal umbilical artery: 89/39 cm/s. Resistive index 0.56. Ratio 2.2 Forward flow identified throughout diastole US/US OB umbilical artery IMPRESSION: Class 0 Single umbilical artery Umbilical Artery: Class 0 = Normal umbilical artery blood velocity Class I = increased RI or PI, but still forward flow in diastole Class II = Absent end diastolic flow (AEDF) Class III = Reversal of end diastolic flow (REDF) Resistive Index (RI)<1 Systolic/Diastolic ratio (S:D): An S:D ratio of 2-3 after 34 wks is normal Systolic/Diastolic ratio (S:D): Age 16: 3.01 for the 10th percentile, 4.25 for the 50th percentile, 6.07 for the 90th percentile Age 20: 3.16 for the 10th percentile, 4.04 for the 50th percentile, 5.24 for the 90th percentile Age 24: 2.70 for the 10th percentile, 3.50 for the 50th percentile, 4.75 for the 90th percentile Age 28: 2.41 for the 10th percentile, 3.02 for the 50th percentile, 3.97 for the 90th percentile Age 30: 2.43 for the 10th percentile, 3.04 for the 50th percentile, 3.80 for the 90th percentile Age 32: 2.27 for the 10th percentile, 2.73 for the 50th percentile, 3.57 for the 90th percentile Age 34: 2.08 for the 10th percentile, 2.52 for the 50th percentile, 3.41 for the 90th percentile Age 36: 1.96 for the 10th percentile, 2.35 for the 50th percentile, 3.15 for the 90th percentile Age 38: 1.89 for the 10th percentile, 2.24 for the 50th percentile, 3.10 for the 90th percentile Age 40: 1.88 for the 10th percentile, 2.22 for the 50th percentile, 2.68 for the 90th percentile Age 41: 1.93 for the 10th percentile, 2.21 for the 50th percentile, 2.55 for the 90th percentile Age 42: 1.91 for the 10th percentile, 2.51 for the 50th percentile, 3.21 for the 90th percentile Uteroplacental Artery: Resistive Index (RI): Normal=<0.55 High Resistance=Bilateral notches (after 26 wks) and RI>0.55. Unilateral notches (after 26 wks) and RI>0.65 Systolic/Diastolic ratio (S:D) = 2-3 is normal after 32 weeks. Electronically authenticated by: KIRK OATES Date: 02/03/2024 16:27
--- OUTSIDE RECORDS SUMMARY | 2024-02-03 07:13 | XMS_ITS ---
Author Name Auto Generated Organization OHIP Support Name Relationship Address Phone PRADIP LINDQUIST Next of Kin [address] [place] [phone] + ALONSO GODINEZ Next of Kin [address] [place] [address] + PRADIP LINDQUIST Next of Kin [address] [place] [phone] + WOOD, ALONSO Next of Kin [address] [place] [address] [place] [address] + PRADIP LINDQUIST Next of Kin [address] [place] [address] + WOOD, ALONSO Next of Kin [address] [place] [address] [place] [address] + PRADIP LINDQUIST Next of Kin [address] [place] [address] [place] [address] + WOOD, ALONSO Next of Kin [address] [place] [address], [place] [address] + PRADIP LINDQUIST Next of Kin [address] [place] [address] [place] [address] + WOOD, ALONSO Next of Kin [address] [place] [address] [place] [address] + PRADIP LINDQUIST Next of Kin [address] [place] [address] [place] [address] + WOOD, ALONSO Next of Kin [address] [place] [address] [place] [address] + PRADIP LINDQUIST Next of Kin [address] [place] [address] [place] [address] + WOOD, ALONSO Next of Kin [address] [place] [address] [place] [address] + PRADIP LINDQUIST Next of Kin Unknown Unavailable PRADIP LINDQUIST Next of Kin Unknown Unavailable WOOD, ALONSO Next of Kin Unknown Unavailable PRADIP LINDQUIST Next of Kin Unknown Unavailable PRADIP LINDQUIST Next of Kin Unknown Unavailable ALONSO GODINEZ Next of Kin Unknown Unavailable PRADIP LINDQUIST Next of Kin [address] [facility] [place] [address] + ALONSO GODINEZ Next of Kin [address] [place] [address] + PRADIP LINDQUIST Next of Kin [address] [facility] [place] [address] + ALONSO GODINEZ Next of Kin [address] [place] [address] + PRADIP LINDQUIST Next of Kin [address] [facility] [place] [address] + ALONSO GODINEZ Next of Kin [address] [place] [address] + PRADIP LINDQUIST Next of Kin [address] [facility] [place] [address] + ALONSO GODINEZ Next of Kin [address] [place] [address] + Pradip Lindquist Next of Kin [address] [place] [address] + Alonso Godinez Next of Kin [address] [place] [address] + PRADIP LINDQUIST Next of Kin [address] [facility] [place] [address] + ALONSO GODINEZ Next of Kin [address] [place] [address] + Care Team Providers Care Glass Sander Name Role Phone Royer Simmons Attending Unavailab le Royer Simmons Admitting Unavailab le Health Dept, Yasir Guillen Primary Care Unavailable JOSE MIGUEL BOATENG R Referring Unavailable BERT RDZ Attending Unavailable JOSE MIGUEL BOATENG R Referring Unavailable KILODONNIEY Attending Unavailable KILO, JOSE MIGUEL Attending Unavailable MICHAEL CHAN Attending Unavailable KILO, JOSE MIGUEL Attending Unavailable KILO, JOSE MIGUEL Attending Unavailable KILO, JOSE MIGUEL Attending Unavailable KILO, JOSE MIGUEL Attending Unavailable KILO, JOSE MIGUEL Attending Unavailable MICHAEL CHAN Attending Unavailable KILO, JOSE MIGUEL Attending Unavailable KILO, JOSE MIGUEL Attending Unavailable PROBLEMS DATE TYPE CONDITION / CODE ATTENDING STATUS [facility] 11/07/2023 Unknown Encounter for ot her specified screening / Z36.89(ICD-10) NA 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 06/10/2017 Drug Allergy/40664357 2(SNOMED CT) No Known Allergies/[id number] (RXNORM) Unknown [facility] ENCOUNTERS ADMIT/DISCHARGE ACCOUNT NUMBER ADMITTING ENCOUNTER CLASS LOCATION SOURCE 01/27/2024/ 024 [id number] Ambulatory Building:[facility] 01/20/2024/ 024 [id number] Ambulatory Building:[facility] 01/06/2024/ 024 [id number] Ambulatory [facility] 12/23/2023/ 024 [id number] Ambulatory Building:[facility] 12/05/2023/ 024 [id number] Ambulatory Building:NOM S [facility] 11/25/2023/ 024 [id number] Ambulatory Building:NOM S [facility] 11/12/2023/ 024 [id number] Ambulatory Building:NOM S [facility] 11/07/2023/ 024 [id number] Ambulatory Building:PTH _MFMUS [facility] 11/07/2023/ 024 [id number] Buildin 4 [facility] 10/15/2023/ 024 [id number] Ambulatory Building:NOM S [facility] 09/17/2023/ 024 [id number] Ambulatory Building:NOM S [facility] 08/19/2023/ 024 [id number] Ambulatory Building:NOM S [facility] 07/19/2023/ 024 [id number] Ambulatory Building:NOM S [facility] 07/08/2023 [id number] [facility] 07/02/2023/ 024 [id number] Ambulatory Building:NOM S [facility] EPIC PAYERS ENCOUNTER GUARANTOR PAYER SUBSCRIBER SOURCE 01/27/2024 SANDY ACEVEDO: [place] [address]Bxc: (HP) Primary Insurance:[employer] MEDICAIDPolicy Number: [id number] Date:2022-02-22 SANDY ACEVEDO: [id number] [place] [address] [facility] 01/20/2024 SANDY ACEVEDO: [place] [address]Vzs: (HP) Primary Insurance:[facility] MEDICAIDPolicy Number: [id number] Date:2022-02-22 FRANCIAJESE GODINEZDOB: [id number] [place] [address] [facility] 01/06/2024 FRANCIAJESE Reddy WOODDOB: [place] [address]Ndw: (HP) Primary Insurance:[facility] MEDICAIDPolicy Number: [id number] Date:2022-02-22 FARNCIAJESE Reddy WOODDOB: [id number] [place] [address] [facility] EPIC 12/23/2023 SANDY Reddy WOODDOB: [place] [address]Ksz: (HP) [facility] MEDICAIDPolicy Number: [id number] Date:2022-02-22 FRANCIAJESE GODINEZDOB: [id number] [place] [address] [facility] EPIC 12/05/2023 SANDY Reddy HERBERTDOB: [place] [address]Xop: (HP) Primary Insurance:[facility] MEDICAIDPolicy Number: [id number] Date:2022-02-22 FRANCIAJESE Barry WOODDOB: [id number] [place] [address] [facility] EPIC 11/25/2023 SANDY Reddy WOODDOB: [place] [address]Jhs: (HP) Primary Insurance:[facility] MEDICAIDPolicy Number: [id number] Date:2022-02-22 SANDY Reddy WOODDOB: [id number] [place] [address] [facility] EPIC 11/12/2023 SANDY Reddy HERBERTB: [place] [address]Yan: (HP) [facility] MEDICAIDJeanes Hospitaly Number: [id number] Date:2022-02-22 FRANCIAJESE GODINEZB: [id number] [place] [address] [facility] EP[facility] 11/07/2023 SANDY TERRE HAUTEB: [place], [place] [address]Wto: (HP) Primary Insurance:[facility] MEDICAID [facility]: [id number] Date:2023-10-16 FRANCIAJESE GODINEZB: [id number] [place], [place] [address]Jcf: (HP) [facility] 11/07/2023 SANDY CRUZB: [place], [place] [address]Gdd: (HP) Primary Insurance:[facility] Number: [id number] Date:2023-10-16 FRANCIAJESE GODINEZB: [id number] [place], [place] [address]Ioi: (HP) [facility] 10/15/2023 SANDY CRUZB: [place] [address]Swb: (HP) Primary Insurance:[facility] MEDICAIDPolicy Number: [id number] Date:2022-02-22 FRANCIAJESE Barry CRUZB: [id number] [place] [address] [facility] 09/17/2023 SANDY CRUZB: [place] [address]Ezf: (HP) Primary Insurance:[employer] MEDICAIDPolicy Number: [id number] Date:2022-02-22 SANDY CRUZB: [id number] [place] [address] [facility] 08/19/2023 SANDY ACEVEDO: [place] [address]Kxu: (HP) Primary Insurance:[employer] MEDICAIDPolicy Number: [id number] Date:2022-02-22 SANDY ACEVEDO: [id number] [place] [address] [facility] 07/19/2023 SANDY ACEVEDO: [place] [address]Pmb: (HP) [place] Insurance:[place] MEDICAIDPolicy Number: [id number] Date:2022-02-22 SANDY CRUZB: [id number] [place] [address] [facility] EP[facility] 07/08/2023 Sandy Godinez[address] [place], [place] [address]Hap: (HP) Primary Insurance:Self PayPolicy Number: Effective Date:2022-10-18 [facility] 07/02/2023 SANDY ACEVEDO: [place] [address]Rux: (HP) Primary Insurance:[employer] MEDICAIDPolicy Number: [id number] Date:2022-02-22 SANDY ACEVEDO: [id number] [place] [address] [facility] EPIC
--- NOTE | 2024-02-03 11:29 | US_ITS ---
[address] [address] Patient Name: SANDY GODINEZ MRN: [id number] date: 1995 Sex: F Assigned Patient Location: US Current Patient Location: Accession/Order Number: [id number] Exam Date: 02/03/2024 11:30 Report Date: 02/03/2024 13:18 At the request of: JOSE MIGUEL BOATENG Procedure: US OB BPP w non-stress EXAMINATION: US OB BPP w non-stress HISTORY: Two vessel umbilical cord COMPARISON: No relevant comparison available. TECHNIQUE: Ultrasound biophysical profile was performed in the radiology department. non-reactive stress testing was performed by nursing staff in the birthing center. FINDINGS: BREATHING MOVEMENTS: 2 GROSS BODY MOVEMENTS: 2 TONE: 2 QUALITATIVE AMNIOTIC FLUID VOLUME: 2 PRESENTATION: Cephalic HEART RATE: 134 AMNIOTIC FLUID VOLUME: 14.0 cm GESTATIONAL AGE: Recent weeks 3 days US/US OB BPP w non-stress IMPRESSION: Total biophysical profile score: 8/8 Electronically authenticated by: KIRK OATES Date: 02/03/2024 13:18
[2024-02-03 11:52] VITALS: BP 117/66; PULSE 91
== END 2024-02-03 12:25 | disposition home or self-care (01) ==
LOC: US 07:09 → FBC 11:27
PROVIDERS: PCP Nurse Practitioner Family; Visit Provider Obstetrics & Gynecology
DX: O09.899 Supervision of other high risk pregnancies, unspecified trimester (principal)
CPT/HCPCS: 76818; 76820

== ENCOUNTER 2024-02-06 04:31 | Inpatient (IN) | payer OTHER, SELFPAY ==
[2024-02-06] VITALS (19 sets, daily range): BP systolic 95–125; BP diastolic 50–75; PULSE 66–99; TEMP 36.4
--- OUTSIDE RECORDS SUMMARY | 2024-02-06 04:34 | XMS_ITS | CCD ---
Author Organization [facility] Care Team Providers Care Razor Sharpener Name Role Phone Farrah Garcia Primary Care Provider VIBHA JOHNSON Attending Unavailable VIBHA JOHNSON Referring Unavailable FARRAH GARCIA Primary Care Unavailable Kelli Oliver Primary Care Physician [phone] MISC, DR LORENZANA Primary Care Unavailable MANOJ [...] Primary Care Provider UnavailRoyer Thompson Attending Unavailab oRyer Watts Admitting Unavailab [facility] Dept[facility] Primary [...] Attending Unavailable JUSTEN, JOSE MIGUEL Attending Unavailable ROCIO, MICHAEL Attending Unavailable JUSTEN, JOSE MIGUEL Attending Unavailable JUSTEN, JOSE MIGUEL Attending Unavailable JUSTEN, JOSE MIGUEL Attending Unavailable Allergies Allergy Classification Reported Allergen(s) Allergy Type Date of Onset Reaction(s) Facility Unclassified (1 source) ADHESIVE TAPE-SILICONES; 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: [ADHESIVE TAPE-SILICONES] Propensity to adverse reactions to drug (disorder) 4 [facility] (1 source) [facility]onide Drug Allergy 9 [facility] (2 sources) Wound Dressing Adhesive [...] 02-15-2022 Episodic Other aftercare (1 source) Other care home (current) 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; 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: [OTH [facility] CURRENT DRUG THERAPY] Onset: 02-05-2022 Episodic Other [...] WITH AUTO DIFFon BASOPHILS ABSOLUTE AUTO 0.1 [facility] Basophils/100 WBC (Bld) 0.7 % 0.2 - 2.0 % [facility] Eosinophils/100 WBC (Bld) 2.6 % 0.9 - 7.0 % [facility] Erythrocyte distribution width (RBC) [Ratio] 13.4 % 11.0 - 15.0 % [facility] Hematocrit (Bld) [Volume fraction] 39.0 % 36.0 - 48.0 % [facility] Hemoglobin (Bld) [Mass/Vol] 12.8 g/dL 12.0 - 16.0 g/dL [facility] IMMATURE GRANULOCYTES ABS AUTO 0.01 [facility] Immature granulocytes/100 WBC (Bld) 0.1 % 0.0 - 0.5 % [facility] LYMPHOCYTES ABSOLUTE AUTO 2.2 [facility] Lymphocytes/100 WBC (Bld) 26.1 % 20.5 - 60.0 % [facility] MCH (RBC) [Entitic mass] 28.6 pg 26.7 - 34.[address] [facility] MCHC (RBC) [Mass/Vol] 32.8 g/dL 29.9 - 35.2 g/dL [facility] MCV (RBC) [Entitic vol] 87.2 fL 81.0 - 99.[address] [facility] MONOCYTES ABSOLUTE AUTO 0.5 [facility] Monocytes/100 WBC (Bld) 5.7 % 1.7 - 12.0 % [facility] NEUTROPHILS ABSOLUTE AUTO 5.5 [facility] Neutrophils/100 WBC (Bld) 64.8 % 43.0 - 75.0 % [facility] Platelet mean volume (Bld) [Entitic vol] 10.1 fL 9.5 - 13.[address] [facility] TBH EO # 0.2 [facility] PLT 340 [facility] RBC 4.47 [facility] WBC 8.4 [facility] HCG ( test) Ql (U)o n 07-19-2023 Interpretation and review of laboratory results Abnormal [facility] Preg Test, Ur Positive [facility] Urinalysis macro (dipstick) panel (U)on 07-19-2023 Bilirubin, UA Negative Negative - 4(70) +++ mg/dL [facility] Blood, UA Positive Negative - 50 Anselmo/mcL [facility] Comment on above: moderate Clarity, UA Clear [facility] Color, UA [facility]uck[place] [facility] Glucose, UA Negative Negative - 1999(110) ++++ mg/dL [facility] Interpretation and review of laboratory results Abnormal [facility] Ketones, UA Positive Negative - 160(16) ++++ mg/dL [facility] Comment on above: trace Leukocytes, UA Positive Negative - 500+++ Monik/mcL [facility] Comment on above: small Nitrite, UA Negative Negative - Positive [facility] pH, UA 6.0 5 - 9 [facility] Protein, UA Positive Negative - 1999(20) ++++ mg/dL [facility] Comment on above: 30 Spec Grav, UA 1.030 1 - 1.03 [facility] Urobilinogen, UA 1.0 0.2 - 12 mg/dL [facility] In office Testingon 09-07-19 23 In office Testing [id number] 1.00CD:127 Normal [facility] CBC AUTO DIFFon 07-30-2022 BASO # 0.1 103/ul Normal 0.0-0.1 [facility] Comment on above: Performed By: #### U RCX #### [facility] [address] [address] [address] Caitlin Martinez Basophils/100 WBC (Bld) 1.1 % Normal 0.2-2.0 [facility] Comment on above: Performed By: #### U RCX #### [facility] [address] [place] [address] Dr. Caitlin Martinez EO # 0.3 103/ul Normal 0.0-0.7 [facility] Comment on above: Performed By: #### U RCX #### [facility] [address] [address] [address] Caitlin Martinez Eosinophils/100 WBC (Bld) 4.7 % Normal 0.9-7.0 [facility] Comment on above: Performed By: #### U RCX #### [facility] [address] [place] [address] Dr. Caitlin Martinez Erythrocyte distribution width (RBC) [Ratio] 14.7 % Normal 11.0-15.0 [facility] Comment on above: Performed By: #### U RCX #### [facility] [address] [place] [address] Dr. Ciatlin Martinez Hematocrit (Bld) [Volume fraction] 39.3 % Normal 36.0-48.0 [facility] Comment on above: Performed By: #### U RCX #### [facility] [address] [place] [address] Dr. Caitlin Martinez Hemoglobin (Bld) [Mass/Vol] 12.7 g/dL Normal 12.0-16.0 [facility] Comment on above: Performed By: #### U RCX #### [facility] [address] [address] [address] Caitlin Martinez IG # 0.02 10e3/ul Normal 0.00-0.03 [facility] Comment on above: Performed By: #### U RCX #### [facility] [address] [address] [address] Caitlin Martinez IG % 0.3 % Normal 0.0-0.5 [facility] Comment on above: Performed By: #### U RCX #### [facility] [address] [address] [address] Caitlin Martinez LYMPH # 2.5 103/ul Normal 1.2-3.8 [facility] Comment on above: Performed By: #### U RCX #### [facility] [address] [place] [address] Dr. Caitlin Martinez Lymphocytes/100 WBC (Bld) 34.5 % Normal 20.5-60.0 [facility] Comment on above: Performed By: #### U RCX #### [facility] [address] [place] [address] Dr. Caitlin Martinez MANUAL DIFF REQ NO Normal [facility] Comment on above: Performed By: #### U RCX #### [facility] [address] [place] [address] Dr. Caitlin Martinez MCH (RBC) [Entitic mass] 27.3 pg Normal 26.7-34.0 [facility] Comment on above: Performed By: #### U RCX #### [facility] [address] [place] [address] Dr. Caitlin Martinez MCHC (RBC) [Mass/Vol] 32.3 g/dL Normal 29.9-35.2 [facility] Comment on above: Performed By: #### U RCX #### [facility] [address] [place] [address] Dr. Caitlin Martinez MCV (RBC) [Entitic vol] 84.5 fL Normal 81.0-99.0 [facility] Comment on above: Performed By: #### U RCX #### [facility] [address] [address] [address] Caitlin Maritnez MONO # 0.5 103/ul Normal 0.3-0.8 [facility] Comment on above: Performed By: #### U RCX #### [facility] [address] [place] [address] Dr. Caitlin Martinez Monocytes/100 WBC (Bld) 7.3 % Normal 1.7-12.0 [facility] Comment on above: Performed By: #### U RCX #### [facility] [address] [place] [address] Dr. Caitlin Martinez NEUT # 3.8 103/ul Normal 1.4-6.5 [facility] Comment on above: Performed By: #### U RCX #### [facility] [address] [place] [address] Dr. Caitlin Martinez Neutrophils/100 WBC (Bld) 52.1 % Normal 43.0-75.0 [facility] Comment on above: Performed By: #### U RCX #### [facility] [address] [place] [address] Dr. Caitlin Martinez Platelet mean volume (Bld) [Entitic vol] 9.0 fL Critically low 9.5-13.5 [facility] Comment on above: Performed By: #### U RCX #### [facility] [address] [place] [address] Dr. Caitlin Martinez PLT 368 103/ul Normal 150-450 [facility] Comment on above: Performed By: #### U RCX #### [facility] [address] [place] [address] Dr. Caitlin Martinez RBC 4.65 106/ul Normal 4.20-5.40 [facility] Comment on above: Performed By: #### U RCX #### [facility] [address] [place] [address] Dr. Caitlin Martinez WBC 7.2 103/ul Normal 4.0-11.0 [facility] Comment on above: Performed By: #### U RCX #### [facility] [address] [place] [address] Dr. Caitlin Martinez IRONon 07-30-2022 Iron [Mass/Vol] 43.0 ug/dL Critically low 50.0-170.0 [facility] Comment on above: Performed By: #### U RCX #### [facility] [address] [address] [address] Caitlin Martinez PAP ACOG PANEL 2: 22 to 30on 07-30-[address] [facility] Comment on above: Performed By: #### U RCX #### [facility] [address] [address] [address] Caitlin Martinez Age Gdln ACOG Testing - [facility] Comment on above: Performed By: #### U RCX #### [facility] [address] [place] [address] Dr. Caitlin Martinez DIAGNOSIS: Comment [facility] Comment on above: Result Comment: NEGA TIVE FOR INTRAEPITHELIAL LESION OR MALIGNANCY. Performed By: #### U RCX #### [facility] [address] [place] [address] Dr. Caitlin Martinez Methodology: Comment [facility] Comment on above: Result Comment: This liquid based ThinPrep(R) pap test was screened with the use of an image guided system. Performed By: #### U RCX #### [facility] [address] [place] [address] Dr. Caitlin Martinez Note: Comment [facility] Comment on above: Result Comment: [...] #### U RCX #### [facility] [address] [address] [address] Caitlin Martinez Performed by: Comment Normal [facility] Comment on above: Result Comment: Bhavna Cormier, Enrichment Assistant (ASCP) Performed By: #### U RCX #### [facility] [address] [address] [address] Caitlin Martinez Reflex Criteria: Comment Normal [facility] Comment on above: Result Comment: The HPV DNA reflex criteria were not met with this specimen result therefore, no HPV testing was performed. . Performed By: #### U RCX #### [facility] [address] [place] [address] Dr. Caitlin Martinez Specimen adequacy: Comment Normal [facility] Comment on above: Result Comment: Sati sfactory for evaluation. Endocervical and/or squamous metaplastic cells (endocervical component) are present. Performed By: #### U RCX #### [facility] [address] [place] [address] Dr. Caitlin Martinez INSULINon 04-19-2022 Insulin 9.1 uIU/mL Normal 2.6-24.9 [facility] Comment on above: Performed By: #### I HORACIO #### [facility] [address] [place] [address] Dr. Caitlin Martinez CBC AUTO DIFFon 04-18-2022 BASO # 0.1 103/ul Normal 0.0-0.1 [facility] Comment on above: Performed By: #### U RCX #### [facility] [address] [place] [address] Dr. Caitlin Martinez Basophils/100 WBC (Bld) 1.0 % Normal 0.2-2.0 [facility] Comment on above: Performed By: #### U RCX #### [facility] [address] [place] [address] Dr. Caitlin Martinez EO # 0.3 103/ul Normal 0.0-0.7 [facility] Comment on above: Performed By: #### U RCX #### [facility] [address] [place] [address] Dr. Caitlin Martinez Eosinophils/100 WBC (Bld) 4.1 % Normal 0.9-7.0 [facility] Comment on above: Performed By: #### U RCX #### [facility] [address] [place] [address] Dr. Caitlin Martinez Erythrocyte distribution width (RBC) [Ratio] 16.0 % Critically high 11.0-15.0 [facility] Comment on above: Performed By: #### U RCX #### [facility] [address] [place] [address] Dr. Caitlin Martinez Hematocrit (Bld) [Volume fraction] 35.7 % Critically low 36.0-48.0 [facility] Comment on above: Performed By: #### U RCX #### [facility] [address] [place] [address] Dr. Caitlin Martinez Hemoglobin (Bld) [Mass/Vol] 10.9 g/dL Critically low 12.0-16.0 [facility] Comment on above: Performed By: #### U RCX #### [facility] [address] [place] [address] Dr. Caitlin Martinez IG # 0.07 10e3/ul Critically high 0.00-0.03 [facility] Comment on above: Performed By: #### U RCX #### [facility] [address] [place] [address] Dr. Caitlin Martinez IG % 1.0 % Critically high 0.0-0.5 [facility] Comment on above: Performed By: #### U RCX #### [facility] [address] [place] [address] Dr. Caitlin Martinez LYMPH # 2.3 103/ul Normal 1.2-3.8 [facility] Comment on above: Performed By: #### U RCX #### [facility] [address] [place] [address] Dr. Caitlin Martinez Lymphocytes/100 WBC (Bld) 31.4 % Normal 20.5-60.0 [facility] Comment on above: Performed By: #### U RCX #### [facility] [address] [place] [address] Dr. Caitlin Martinez MANUAL DIFF REQ NO Normal [facility] Comment on above: Performed By: #### U RCX #### [facility] [address] [place] [address] Dr. Caitlin Martinez MCH (RBC) [Entitic mass] 24.8 pg Critically low 26.7-34.0 [facility] Comment on above: Performed By: #### U RCX #### [facility] [address] [place] [address] Dr. Caitlin Martinez MCHC (RBC) [Mass/Vol] 30.5 g/dL Normal 29.9-35.2 [facility] Comment on above: Performed By: #### U RCX #### [facility] [address] [place] [address] Dr. Caitlin Martinez MCV (RBC) [Entitic vol] 81.1 fL Normal 81.0-99.0 [facility] Comment on above: Performed By: #### U RCX #### [facility] [address] [place] [address] Dr. Caitlin Martinez MONO # 0.5 103/ul Normal 0.3-0.8 [facility] Comment on above: Performed By: #### U RCX #### [facility] [address] [place] [address] Dr. Caitlin Martinez Monocytes/100 WBC (Bld) 6.6 % Normal 1.7-12.0 [facility] Comment on above: Performed By: #### U RCX #### [facility] [address] [place] [address] Dr. Caitlin Martinez NEUT # 4.1 103/ul Normal 1.4-6.5 [facility] Comment on above: Performed By: #### U RCX #### [facility] [address] [place] [address] Dr. Caitlin Martinez Neutrophils/100 WBC (Bld) 55.9 % Normal 43.0-75.0 [facility] Comment on above: Performed By: #### U RCX #### [facility] [address] [place] [address] Dr. Caitlin Martinez Platelet mean volume (Bld) [Entitic vol] 9.4 fL Critically low 9.5-13.5 [facility] Comment on above: Performed By: #### U RCX #### [facility] [address] [place] [address] Dr. Caitlin Martinez PLT 369 103/ul Normal 150-450 [facility] Comment on above: Performed By: #### U RCX #### [facility] [address] [place] [address] Dr. Caitlin Martinez RBC 4.40 106/ul Normal 4.20-5.40 [facility] Comment on above: Performed By: #### U RCX #### [facility] [address] [address] [address] Caitlin Martinez WBC 7.3 103/ul Normal 4.0-11.0 [facility] Comment on above: Performed By: #### U RCX #### [facility] [address] [place] [address] Dr. Caitlin Martinez FREE THYROXINE INDEX T7on FTI 2.20 Normal 1.30-4.50 [facility] Comment on above: Performed By: #### I HORACIO #### [facility] [address] [place] [address] Dr. Caitlin Martinez T3U 29.0 % Critically low 30.0-39.0 [facility] Comment on above: Performed By: #### I HORACIO #### [facility] [address] [place] [address] Dr. Caitlin Martinez T4 [Mass/Vol] 7.60 ug/dL Normal 4.80-13.90 [facility] Comment on above: Performed By: #### I HORACIO #### [facility] [address] [place] [address] Dr. Caitlin Martinez GLYCOHEMOGLOBIN A1Con 2021 ADA RECOMMENDATION SEE BELOW Normal [facility] Comment on above: Result Comment: ADA RECOMMENDED LIMIT 4.0 - 6.0 ADA THERAPEUTIC TARGET < 7.0 ACTION SUGGESTED > 7.0 Performed By: #### U RCX #### [facility] [address] [place] [address] Dr. Caitlin Martinez Glucose [Mass/Vol] 97 mg/dL Normal [facility] Comment on above: Performed By: #### U RCX #### [facility] [address] [place] [address] Dr. Caitlin Martinez HbA1c (Bld) [Mass fraction] 5.0 % Normal 4.5-6.2 [facility] Comment on above: Performed By: #### U RCX #### [facility] [address] [address] [address] Caitlin Martinez IRONon 04-18-2022 Iron [Mass/Vol] 35.0 ug/dL Critically low 50.0-170.0 [facility] Comment on above: Performed By: #### I HORACIO #### [facility] [address] [place] [address] Dr. Caitlin Martinez LIPID PROFILEon 04-18-2022 CHOL-HDL RATIO NORM SEE BELOW Normal [facility] Comment on above: Result Comment: 3.3 - 4.4 LOW RISK 4.4 - 7.1 AVERAGE RISK 7.1 - 11.0 MODERATE RISK >11.0 HIGH RISK Performed By: #### I HORACIO #### [facility] [address] [place] [address] Dr. Caitlin Martinez Cholesterol [Mass/Vol] 221 mg/dL Critically high <=200 [facility] Comment on above: Performed By: #### I HORACIO #### [facility] [address] [place] [address] Dr. Caitlin Martinez Cholesterol in HDL [Mass/Vol] 67 mg/dL Critically high 40-60 [facility] Comment on above: Performed By: #### I HORACIO #### [facility] [address] [address] [address] Caitlin Martinez Cholesterol in LDL [Mass/Vol] 142.4 mg/dL Normal [facility] Comment on above: Performed By: #### I HORACIO #### [facility] [address] [address] [address] Caitlin Martinez Cholesterol.total/Cho lesterol in HDL [Mass ratio] 3.3 {ratio} Normal [facility] Comment on above: Performed By: #### I HORACIO #### [facility] [address] [place] [address] Dr. Caitlin Martinez HDL NORMAL > or = 60 mg/dl - LO W CARDIOVASCULAR RISK <40 mg/dl - HIGH CARDIOVASCULAR RISK Normal [facility] Comment on above: Performed By: #### I HORACIO #### [facility] [address] [address] [address] Caitlin Martinez LDL CALC NORMAL SEE BELOW Normal [facility] Comment on above: Result Comment: <100 mg/dl OPTIMAL 100 - 129 mg/dl NEAR OR ABOVE OPTIMAL 130 - 159 mg/dl BORDERLINE HIGH 160 - 189 mg/dl HIGH >190 mg/dl VERY HIGH Performed By: #### I HORACIO #### [facility] [address] [place] [address] Dr. Caitlin Martinez Triglyceride [Mass/Vol] 58 mg/dL Normal <=150 [facility] Comment on above: Performed By: #### I HORACIO #### [facility] [address] [place] [address] Dr. Caitlin Martinez VLDL CALC 11.6 mg/dL Normal [facility] Comment on above: Performed By: #### I HORACIO #### [facility] [address] [place] [address] Dr. Caitlin Martinez PROF 14(COMP METB)on 022 Albumin [Mass/Vol] 3.8 g/dL Normal 3.4-5.0 [facility] Comment on above: Performed By: #### I HORACIO #### [facility] [address] [place] [address] Dr. Caitlin Martinez Albumin/Globulin [Mass ratio] 1.1 {ratio} Normal [facility] Comment on above: Performed By: #### I HORACIO #### [facility] [address] [place] [address] Dr. Caitlin Martinez ALP [Catalytic activity/Vol] 132 U/L Critically high 46-116 [facility] Comment on above: Performed By: #### I HORACIO #### [facility] [address] [place] [address] Dr. Caitlin Martinez ALT [Catalytic activity/Vol] 55 U/L Normal 14-59 [facility] Comment on above: Performed By: #### I HORACIO #### [facility] [address] [place] [address] Dr. Caitlin Martinez Anion gap [Moles/Vol] 12.6 mmol/L Normal [facility] Comment on above: Performed By: #### I HORACIO #### [facility] [address] [place] [address] Dr. Caitlin Martinez AST [Catalytic activity/Vol] 27 U/L Normal 15-37 [facility] Comment on above: Performed By: #### I HORACIO #### [facility] [address] [place] [address] Dr. Caitlin Martinez Bilirubin [Mass/Vol] 0.6 mg/dL Normal 0.2-1.0 [facility] Comment on above: Performed By: #### I HORACIO #### [facility] [address] [place] [address] Dr. Caitlin Martinez Calcium [Mass/Vol] 9.1 mg/dL Normal 8.5-10.1 [facility] Comment on above: Performed By: #### I HORACIO #### [facility] [address] [place] [address] Dr. Caitlin Martinez Chloride [Moles/Vol] 106 mmol/L Normal 98-107 [facility] Comment on above: Performed By: #### I HORACIO #### [facility] [address] [place] [address] Dr. Caitlin Martinez CO2 [Moles/Vol] 26.5 mmol/L Normal 21.0-32.0 [facility] Comment on above: Performed By: #### I HORACIO #### [facility] [address] [place] [address] Dr. Caitlin Martinez Creatinine [Mass/Vol] 0.63 mg/dL Normal 0.55-1.02 [facility] Comment on above: Performed By: #### I HORACIO #### [facility] [address] [place] [address] Dr. Caitlin Martinez EGFR-AF ARMENIAN >60 Normal >=60 [facility] Comment on above: Performed By: #### I HORACIO #### [facility] [address] [place] [address] Dr. Caitlin Martinez EGFR-NON AF ARMENIAN >60 Normal >=60 [facility] Comment on above: Performed By: #### I HORACIO #### [facility] [address] [address] [address] Caitlin Martinez Globulin (S) [Mass/Vol] 3.6 g/dL Normal [facility] Comment on above: Performed By: #### I HORACIO #### [facility] [address] [place] [address] Dr. Caitlin Martinez Glucose [Mass/Vol] 98 mg/dL Normal 74-106 [facility] Comment on above: Performed By: #### I HORACIO #### [facility] [address] [address] [address] Caitlin Martinez Potassium [Moles/Vol] 4.1 mmol/L Normal 3.5-5.1 [facility] Comment on above: Performed By: #### I HORACIO #### [facility] [address] [place] [address] Dr. Caitlin Martinez Protein [Mass/Vol] 7.4 g/dL Normal 6.4-8.2 [facility] Comment on above: Performed By: #### I HORACIO #### [facility] [address] [place] [address] Dr. Caitlin Martinez Sodium [Moles/Vol] 141 mmol/L Normal 136-145 [facility] Comment on above: Performed By: #### I HORACIO #### [facility] [address] [place] [address] Dr. Caitlin Martinez Urea nitrogen [Mass/Vol] 9.0 mg/dL Normal 7.0-18.0 [facility] Comment on above: Performed By: #### I HORACIO #### [facility] [address] [place] [address] Dr. Caitlin Martinez Urea nitrogen/Creatinine [Mass ratio] 14.3 mg/mg Normal [facility] Comment on above: Performed By: #### I HORACIO #### [facility] [address] [place] [address] Dr. Caitlin Martinez TSHon 04-18-2022 TSH 1.349 uIU/mL Normal 0.358-3.740 [facility] Comment on above: Performed By: #### I HORACIO #### [facility] [address] [place] [address] Dr. Caitlin Martinez ANTIBODY ID PANELon 02-15-20 22 ANTIBODY ID PANEL Antibody ID Anti-D Blood Bank Notes most likely due to Rhogam given on 12/01/21 Normal [facility] Comment on above: Performed By: #### D IRCMB, ABID #### [facility] [address] [place] [address] Dr. Caitlin Martinez CTA CHEST WO W [...] 2022-02-10 22:55 Normal [facility] CBC AUTO DIFFon 02-10-2022 BASO # 0.1 103/ul Normal 0.0-0.1 [facility] Comment on above: Performed By: #### C BC #### [facility] [address] [place] [address] Dr. Caitlin Martinez Basophils/100 WBC (Bld) 0.4 % Normal 0.2-2.0 [facility] Comment on above: Performed By: #### C BC #### [facility] [address] [place] [address] Dr. Caitlin Martinez EO # 0.5 103/ul Normal 0.0-0.7 [facility] Comment on above: Performed By: #### C BC #### [facility] [address] [address] [address] Caitlin Martinez Eosinophils/100 WBC (Bld) 4.2 % Normal 0.9-7.0 [facility] Comment on above: Performed By: #### C BC #### [facility] [address] [address] [address] Caitlin Martinez Erythrocyte distribution width (RBC) [Ratio] 14.7 % Normal 11.0-15.0 [facility] Comment on above: Performed By: #### C BC #### [facility] [address] [place] [address] Dr. Caitlin Martinez Hematocrit (Bld) [Volume fraction] 31.1 % Critically low 36.0-48.0 [facility] Comment on above: Performed By: #### C BC #### [facility] [address] [place] [address] Dr. Caitlin Martinez Hemoglobin (Bld) [Mass/Vol] 9.6 g/dL Critically low 12.0-16.0 [facility] Comment on above: Performed By: #### C BC #### [facility] [address] [place] [address] Dr. Caitlin Martinez IG # 0.28 10e3/ul Critically high 0.00-0.03 [facility] Comment on above: Performed By: #### C BC #### [facility] [address] [place] [address] Dr. Caitlin Martinez IG % 2.3 % Critically high 0.0-0.5 [facility] Comment on above: Performed By: #### C BC #### [facility] [address] [place] [address] Dr. Caitlin Martinez LYMPH # 3.3 103/ul Normal 1.2-3.8 [facility] Comment on above: Performed By: #### C BC #### [facility] [address] [place] [address] Dr. Caitlin Martinez Lymphocytes/100 WBC (Bld) 26.9 % Normal 20.5-60.0 [facility] Comment on above: Performed By: #### C BC #### [facility] [address] [place] [address] Dr. Caitlin Martinez MANUAL DIFF REQ NO Normal [facility] Comment on above: Performed By: #### C BC #### [facility] [address] [place] [address] Dr. Caitlin Martinez MCH (RBC) [Entitic mass] 26.2 pg Critically low 26.7-34.0 [facility] Comment on above: Performed By: #### C BC #### [facility] [address] [place] [address] Dr. Caitlin Martinez MCHC (RBC) [Mass/Vol] 30.9 g/dL Normal 29.9-35.2 [facility] Comment on above: Performed By: #### C BC #### [facility] [address] [place] [address] Dr. Caitlin Martinez MCV (RBC) [Entitic vol] 84.7 fL Normal 81.0-99.0 [facility] Comment on above: Performed By: #### C BC #### [facility] [address] [place] [address] Dr. Caitlin Martinez MONO # 1.1 103/ul Critically high 0.3-0.8 [facility] Comment on above: Performed By: #### C BC #### [facility] [address] [place] [address] Dr. Caitlin Martinez Monocytes/100 WBC (Bld) 8.7 % Normal 1.7-12.0 [facility] Comment on above: Performed By: #### C BC #### [facility] [address] [place] [address] Dr. Caitlin Martinez NEUT # 7.0 103/ul Critically high 1.4-6.5 [facility] Comment on above: Performed By: #### C BC #### [facility] [address] [place] [address] Dr. Caitlin Martinez Neutrophils/100 WBC (Bld) 57.5 % Normal 43.0-75.0 [facility] Comment on above: Performed By: #### C BC #### [facility] [address] [address] [address] Caitlin Martinez Platelet mean volume (Bld) [Entitic vol] 9.1 fL Critically low 9.5-13.5 [facility] Comment on above: Performed By: #### C BC #### [facility] [address] [address] [address] Caitlin Martinez PLT 437 103/ul Normal 150-450 [facility] Comment on above: Performed By: #### C BC #### [facility] [address] [address] [address] Caitlin Martinez RBC 3.67 106/ul Critically low 4.20-5.40 [facility] Comment on above: Performed By: #### C BC #### [facility] [address] [address] [address] Caitlin Martinez WBC 12.3 103/ul Critically high 4.0-11.0 [facility] Comment on above: Performed By: #### C BC #### [facility] [address] [address] [address] Caitlin Martinez Covid-19 PCR ([facility])on 01-16 SARS-CoV-2 (COVID-19) RNA JONATAN+probe Ql (Unsp spec) Not detected Normal NOT DETECTED [facility] Comment on above: Result Comment: When [...] for this test is supported by the [place] of Health and Human Service's declaration that [...] #### C VDTBH #### [facility] [address] [place] [address] Dr. Caitlin Martinez PROF 14(COMP METB)on 022 Albumin [Mass/Vol] 2.1 g/dL Critically low 3.4-5.0 [facility] Comment on above: Performed By: #### U RCX #### [facility] [address] [place] [address] Dr. Caitlin Martinez Albumin/Globulin [Mass ratio] 0.5 {ratio} Normal [facility] Comment on above: Performed By: #### U RCX #### [facility] [address] [place] [address] Dr. Caitlin Martinez ALP [Catalytic activity/Vol] 202 U/L Critically high 46-116 [facility] Comment on above: Performed By: #### U RCX #### [facility] [address] [place] [address] Dr. Caitlin Martinez ALT [Catalytic activity/Vol] 20 U/L Normal 14-59 [facility] Comment on above: Performed By: #### U RCX #### [facility] [address] [place] [address] Dr. Caitlin Martinez Anion gap [Moles/Vol] 11.6 mmol/L Normal [facility] Comment on above: Performed By: #### U RCX #### [facility] [address] [place] [address] Dr. Caitlin Martinez AST [Catalytic activity/Vol] 17 U/L Normal 15-37 [facility] Comment on above: Performed By: #### U RCX #### [facility] [address] [place] [address] Dr. Caitlin Martinez Bilirubin [Mass/Vol] 0.3 mg/dL Normal 0.2-1.0 [facility] Comment on above: Performed By: #### U RCX #### [facility] [address] [place] [address] Dr. Caitlin Martinez Calcium [Mass/Vol] 9.2 mg/dL Normal 8.5-10.1 [facility] Comment on above: Performed By: #### U RCX #### [facility] [address] [address] [address] Caitlin Martinez Chloride [Moles/Vol] 104 mmol/L Normal 98-107 [facility] Comment on above: Performed By: #### U RCX #### [facility] [address] [address] [address] Caitlin Martinez CO2 [Moles/Vol] 26.9 mmol/L Normal 21.0-32.0 [facility] Comment on above: Performed By: #### U RCX #### [facility] [address] [address] [address] Caitlin Martinez Creatinine [Mass/Vol] 0.56 mg/dL Normal 0.55-1.02 [facility] Comment on above: Performed By: #### U RCX #### [facility] [address] [place] [address] Dr. Caitlin Martinez EGFR-AF ARMENIAN >60 Normal >=60 [facility] Comment on above: Performed By: #### U RCX #### [facility] [address] [address] [address] Caitlin Martinez EGFR-NON AF ARMENIAN >60 Normal >=60 [facility] Comment on above: Performed By: #### U RCX #### [facility] [address] [place] [address] Dr. Caitlin Martinez Globulin (S) [Mass/Vol] 4.4 g/dL Normal [facility] Comment on above: Performed By: #### U RCX #### [facility] [address] [address] [address] Caitlin Martinez Glucose [Mass/Vol] 108 mg/dL Critically high 74-106 [facility] Comment on above: Performed By: #### U RCX #### [facility] [address] [address] [address] Caitlin Martinez Potassium [Moles/Vol] 3.5 mmol/L Normal 3.5-5.1 [facility] Comment on above: Performed By: #### U RCX #### [facility] [address] [address] [address] Caitlin Martinez Protein [Mass/Vol] 6.5 g/dL Normal 6.4-8.2 [facility] Comment on above: Performed By: #### U RCX #### [facility] [address] [address] [address] Caitlin Martinez Sodium [Moles/Vol] 139 mmol/L Normal 136-145 [facility] Comment on above: Performed By: #### U RCX #### [facility] [address] [address] [address] Caitlin Martinez Urea nitrogen [Mass/Vol] 7.0 mg/dL Normal 7.0-18.0 [facility] Comment on above: Performed By: #### U RCX #### [facility] [address] [place] [address] Dr. Caitlin Martinez Urea nitrogen/Creatinine [Mass ratio] 12.5 mg/mg Normal [facility] Comment on above: Performed By: #### U RCX #### [facility] [address] [place] [address] Dr. Caitlin Martinez TROPONIN, HIGH SENSITIVITYon 02-10-2022 HSTROP <4.0 Normal 4.0-51.3 [facility] Comment on above: Result Comment: CUT- OFF POINTS HAVE BEEN ESTABLISHED BASED ON THE FOURTH UNIVERSAL DEFINITIONS OF MYOCARDIAL INFARCTION. THE UPPER REFERENCE LIMIT (URL) OF TROPONIN, DEFINED THE 99TH PERCENTILE OF cTnI DISTRIBUTION IN A REFERENCE POPULATION, HAS BEEN CONFIRMED THE DECISION THRESHOLD FOR GA DIAGNOSIS. Performed By: #### U RCX #### [facility] [address] [place] [address] Dr. Caitlin Martinez CBC AUTO DIFFon 02-09-2022 BASO # 0.1 103/ul Normal 0.0-0.1 [facility] Comment on above: Performed By: #### U RCX #### [facility] [address] [place] [address] Dr. Caitlin Martinez Basophils/100 WBC (Bld) 0.6 % Normal 0.2-2.0 [facility] Comment on above: Performed By: #### U RCX #### [facility] [address] [address] [address] Caitlin Martinez EO # 0.3 103/ul Normal 0.0-0.7 [facility] Comment on above: Performed By: #### U RCX #### [facility] [address] [address] [address] Caitlin Martinez Eosinophils/100 WBC (Bld) 2.3 % Normal 0.9-7.0 [facility] Comment on above: Performed By: #### U RCX #### [facility] [address] [address] [address] Caitlin Martinez Erythrocyte distribution width (RBC) [Ratio] 14.6 % Normal 11.0-15.0 [facility] Comment on above: Performed By: #### U RCX #### [facility] [address] [place] [address] Dr. Caitlin Martinez Hematocrit (Bld) [Volume fraction] 28.8 % Critically low 36.0-48.0 [facility] Comment on above: Performed By: #### U RCX #### [facility] [address] [place] [address] Dr. Caitlin Martinez Hemoglobin (Bld) [Mass/Vol] 9.0 g/dL Critically low 12.0-16.0 [facility] Comment on above: Performed By: #### U RCX #### [facility] [address] [address] [address] Caitlin Martinez IG # 0.20 10e3/ul Critically high 0.00-0.03 [facility] Comment on above: Performed By: #### U RCX #### [facility] [address] [address] [address] Caitlin Martinez IG % 1.5 % Critically high 0.0-0.5 [facility] Comment on above: Performed By: #### U RCX #### [facility] [address] [address] [address] Caitlin Martinez LYMPH # 3.0 103/ul Normal 1.2-3.8 [facility] Comment on above: Performed By: #### U RCX #### [facility] [address] [address] [address] Caitlin Martinez Lymphocytes/100 WBC (Bld) 22.2 % Normal 20.5-60.0 [facility] Comment on above: Performed By: #### U RCX #### [facility] [address] [address] [address] Caitlin Martinez MANUAL DIFF REQ NO Normal [facility] Comment on above: Performed By: #### U RCX #### [facility] [address] [address] [address] Caitlin Martinez MCH (RBC) [Entitic mass] 26.2 pg Critically low 26.7-34.0 [facility] Comment on above: Performed By: #### U RCX #### [facility] [address] [place] [address] Dr. Caitlin Martinez MCHC (RBC) [Mass/Vol] 31.3 g/dL Normal 29.9-35.2 [facility] Comment on above: Performed By: #### U RCX #### [facility] [address] [address] [address] Caitlin Martinez MCV (RBC) [Entitic vol] 83.7 fL Normal 81.0-99.0 [facility] Comment on above: Performed By: #### U RCX #### [facility] [address] [place] [address] Dr. Caitlin Martinez MONO # 1.3 103/ul Critically high 0.3-0.8 [facility] Comment on above: Performed By: #### U RCX #### [facility] [address] [address] [address] Caitlin Martinez Monocytes/100 WBC (Bld) 9.8 % Normal 1.7-12.0 [facility] Comment on above: Performed By: #### U RCX #### [facility] [address] [address] [address] Caitlin Martinez NEUT # 8.5 103/ul Critically high 1.4-6.5 [facility] Comment on above: Performed By: #### U RCX #### [facility] [address] [address] [address] Caitlin Martinez Neutrophils/100 WBC (Bld) 63.6 % Normal 43.0-75.0 [facility] Comment on above: Performed By: #### U RCX #### [facility] [address] [address] [address] Caitlin Martinez Platelet mean volume (Bld) [Entitic vol] 9.1 fL Critically low 9.5-13.5 [facility] Comment on above: Performed By: #### U RCX #### [facility] [address] [place] [address] Dr. Caitlin Martinez PLT 355 103/ul Normal 150-450 [facility] Comment on above: Performed By: #### U RCX #### [facility] [address] [place] [address] Dr. Caitlin Martinez RBC 3.44 106/ul Critically low 4.20-5.40 [facility] Comment on above: Performed By: #### U RCX #### [facility] [address] [place] [address] Dr. Caitlin Martinez WBC 13.3 103/ul Critically high 4.0-11.0 [facility] Comment on above: Performed By: #### U RCX #### [facility] [address] [place] [address] Dr. Caitlin Martinez SCREENon 02-09-2022 SCREEN Negative Normal [facility] Comment on above: Performed By: #### F ETSCRN #### [facility] [address] [place] [address] Dr. Caitlin Martinez CBC AUTO DIFFon 02-08-2022 BASO # 0.1 103/ul Normal 0.0-0.1 [facility] Comment on above: Performed By: #### U RCX #### [facility] [address] [address] [address] Caitlin Martinez Basophils/100 WBC (Bld) 0.4 % Normal 0.2-2.0 [facility] Comment on above: Performed By: #### U RCX #### [facility] [address] [place] [address] Dr. Caitlin Martinez EO # 0.3 103/ul Normal 0.0-0.7 [facility] Comment on above: Performed By: #### U RCX #### [facility] [address] [place] [address] Dr. Caitlin Martinez Eosinophils/100 WBC (Bld) 2.6 % Normal 0.9-7.0 [facility] Comment on above: Performed By: #### U RCX #### [facility] [address] [place] [address] Dr. Caitlin Martinez Erythrocyte distribution width (RBC) [Ratio] 14.7 % Normal 11.0-15.0 [facility] Comment on above: Performed By: #### U RCX #### [facility] [address] [place] [address] Dr. Caitlin Martinez Hematocrit (Bld) [Volume fraction] 30.6 % Critically low 36.0-48.0 [facility] Comment on above: Performed By: #### U RCX #### [facility] [address] [place] [address] Dr. Caitlin Martinez Hemoglobin (Bld) [Mass/Vol] 9.7 g/dL Critically low 12.0-16.0 [facility] Comment on above: Performed By: #### U RCX #### [facility] [address] [place] [address] Dr. Caitlin Martinez IG # 0.15 10e3/ul Critically high 0.00-0.03 [facility] Comment on above: Performed By: #### U RCX #### [facility] [address] [place] [address] Dr. Caitlin Martinez IG % 1.3 % Critically high 0.0-0.5 [facility] Comment on above: Performed By: #### U RCX #### [facility] [address] [place] [address] Dr. Caitlin Martinez LYMPH # 2.8 103/ul Normal 1.2-3.8 [facility] Comment on above: Performed By: #### U RCX #### [facility] [address] [place] [address] Dr. Caitlin Martinez Lymphocytes/100 WBC (Bld) 24.8 % Normal 20.5-60.0 [facility] Comment on above: Performed By: #### U RCX #### [facility] [address] [place] [address] Dr. Caitlin Martinez MANUAL DIFF REQ NO Normal [facility] Comment on above: Performed By: #### U RCX #### [facility] [address] [place] [address] Dr. Caitlin Martinez MCH (RBC) [Entitic mass] 26.6 pg Critically low 26.7-34.0 [facility] Comment on above: Performed By: #### U RCX #### [facility] [address] [place] [address] Dr. Caitlin Martinez MCHC (RBC) [Mass/Vol] 31.7 g/dL Normal 29.9-35.2 [facility] Comment on above: Performed By: #### U RCX #### [facility] [address] [place] [address] Dr. Caitlin Martinez MCV (RBC) [Entitic vol] 83.8 fL Normal 81.0-99.0 [facility] Comment on above: Performed By: #### U RCX #### [facility] [address] [place] [address] Dr. Caitlin Martinez MONO # 1.0 103/ul Critically high 0.3-0.8 [facility] Comment on above: Performed By: #### U RCX #### [facility] [address] [place] [address] Dr. Caitlin Martinez Monocytes/100 WBC (Bld) 8.7 % Normal 1.7-12.0 [facility] Comment on above: Performed By: #### U RCX #### [facility] [address] [place] [address] Dr. Caitlin Martinez NEUT # 7.0 103/ul Critically high 1.4-6.5 [facility] Comment on above: Performed By: #### U RCX #### [facility] [address] [place] [address] Dr. Caitlin Martinez Neutrophils/100 WBC (Bld) 62.2 % Normal 43.0-75.0 [facility] Comment on above: Performed By: #### U RCX #### [facility] [address] [place] [address] Dr. Caitlin Martinez Platelet mean volume (Bld) [Entitic vol] 9.0 fL Critically low 9.5-13.5 [facility] Comment on above: Performed By: #### U RCX #### [facility] [address] [place] [address] Dr. Caitlin Martinez PLT 373 103/ul Normal 150-450 [facility] Comment on above: Performed By: #### U RCX #### [facility] [address] [place] [address] Dr. Caitlin Martinez RBC 3.65 106/ul Critically low 4.20-5.40 [facility] Comment on above: Performed By: #### U RCX #### [facility] [address] [place] [address] Dr. Caitlin Martienz WBC 11.3 103/ul Critically high 4.0-11.0 [facility] Comment on above: Performed By: #### U RCX #### [facility] [address] [place] [address] Dr. Caitlin Martinez Covid-19 PCR ([facility])on 01-16 SARS-CoV-2 (COVID-19) RNA JONATAN+probe Ql (Unsp spec) Not detected Normal NOT DETECTED [facility] Comment on above: Result Comment: When [...] for this test is supported by the [employer] of Health and Human Service's declaration that [...] #### C BC #### [facility] [address] [place] [address] Dr. Caitlin Martinez DIRECT COOMBSon 02-08-2022 DIRECT EDWINA Negative Normal [facility] Comment on above: Performed By: #### D IRCMB, ABID #### [facility] [address] [place] [address] Dr. Caitlin Martinez DRUG SCREEN RAPID (URINE)on 02-08-2022 AMP Negative Normal NEGATIVE [facility] Comment on above: Performed By: #### C BC #### [facility] [address] [place] [address] Dr. Caitlin Martinez BAR Negative Normal NEGATIVE [facility] Comment on above: Performed By: #### C BC #### [facility] [address] [place] [address] Dr. Caitlin Martinez BUP Negative Normal NEGATIVE [facility]. [facility] Comment on above: Performed By: #### C BC #### [facility] [address] [place] [address] Dr. Caitlin Martinez BZO Negative Normal NEGATIVE [facility] Comment on above: Performed By: #### C BC #### [facility] [address] [place] [address] Dr. Caitlin Martinez JEANNA Negative Normal NEGATIVE [facility] Comment on above: Performed By: #### C BC #### [facility] [address] [place] [address] Dr. Caitlin Martinez CUT-OFFS SEE BELOW Normal [facility] Comment on above: Result Comment: AMP [...] #### C BC #### [facility] [address] [place] [address] Dr. Caitlin Martinez DRUG CUT HEADER DRUG CLASS TEST SYSTEM CUT-OFF CONCENTRATIONS ARE FOLLOWS: Normal [facility] Comment on above: Performed By: #### C BC #### [facility] [address] [place] [address] Dr. Caitlin Martinez mAMP Negative Normal NEGATIVE [facility] Comment on above: Performed By: #### C BC #### [facility] [address] [place] [address] Dr. Caitlin Martinez MTD Negative Normal NEGATIVE [facility] Comment on above: Performed By: #### C BC #### [facility] [address] [place] [address] Dr. Caitlin Martinez OPI Negative Normal NEGATIVE [facility] Comment on above: Performed By: #### C BC #### [facility] [address] [place] [address] Dr. Caitlin Martinez OXY Negative Normal NEGATIVE [facility] Comment on above: Performed By: #### C BC #### [facility] [address] [place] [address] Dr. Caitlin Martinez PCP Negative Normal NEGATIVE [facility] Comment on above: Performed By: #### C BC #### [facility] [address] [place] [address] Dr. Caitlin Martinez PPX Negative Normal NEGATIVE [facility] Comment on above: Performed By: #### C BC #### [facility] [address] [place] [address] Dr. Caitlin Martinez TCA Negative Normal NEGATIVE [facility] Comment on above: Performed By: #### C BC #### [facility] [address] [address] [address] Caitlin Martinez THC Negative Normal NEGATIVE [facility] Comment on above: Performed By: #### C BC #### [facility] [address] [place] [address] Dr. Caitlin Martinez TYPE AND SCREENon 02-08-2022 TYPE AND SCREEN Negative Normal [facility] Comment on above: Performed By: #### I HORACIO #### [facility] [address] [place] [address] Dr. Caitlin Martinez US PREG BIOPHY W [...] 2022-02-05 16:28 Normal [facility] AMNISUREon 01-25-2022 AMNISURE Negative Normal NEGATIVE [facility] Comment on above: Performed By: #### A MNI #### [facility] [address] [place] [address] Dr. Caitlin Martinez CULTURE URINEon 01-25-2022 CULTURE URINE Culture Observations : No growth Normal [facility] Comment on above: Performed By: #### U RCX #### [facility] [address] [place] [address] Dr. Caitlin Martinez UA (CLEAN/CATCH) MANAGER FRAUD/MICRO I F IND.on 01-25-2022 Bilirubin Ql (U) Negative Normal NEGATIVE [facility] Comment on above: Performed By: #### C VDTBH #### [facility] [address] [place] [address] Dr. Caitlin Martinez Clarity (U) SL CLOUDY Abnormal CLEAR [facility] Comment on above: Performed By: #### C VDTBH #### [facility] [address] [place] [address] Dr. Caitlin Martinez Color (U) LT. YELLOW Normal YELLOW [facility] Comment on above: Performed By: #### C VDTBH #### [facility] [address] [place] [address] Dr. Caitlin Martinez Glucose Ql (U) Negative Normal NEGATIVE [facility] Comment on above: Performed By: #### C VDTBH #### [facility] [address] [place] [address] Dr. Caitlin Martinez Hemoglobin Ql (U) TRACE-INTACT Abnormal NEGATIVE [facility] Comment on above: Performed By: #### C VDTBH #### [facility] [address] [place] [address] Dr. Caitlin Martinez Ketones Ql (U) Negative Normal NEGATIVE [facility] Comment on above: Performed By: #### C VDTBH #### [facility] [address] [place] [address] Dr. Caitlin Martinez LEUKOCYTES TRACE Abnormal NEGATIVE [facility] Comment on above: Performed By: #### C VDTBH #### [facility] [address] [place] [address] Dr. Caitlin Martinez Nitrite Ql (U) Negative Normal NEGATIVE [facility] Comment on above: Performed By: #### C VDTBH #### [facility] [address] [place] [address] Dr. Caitlin Martinez pH (U) 6.5 [pH] Normal 5-9 [facility] Comment on above: Performed By: #### C VDTBH #### [facility] [address] [place] [address] Dr. Caitlin Martinez SPEC GRAVITY 1.020 Normal 1.005-<=1.025 [facility] Comment on above: Performed By: #### C VDTBH #### [facility] [address] [place] [address] Dr. Caitlin Martinez UA PROTEIN Negative Normal NEGATIVE/ TRACE [facility] Comment on above: Performed By: #### C VDTBH #### [facility] [address] [place] [address] Dr. Caitlin Martinez UR MICRO IND INDICATED Normal [facility] Comment on above: Performed By: #### C VDTBH #### [facility] [address] [place] [address] Dr. Ciatlin Martinez Urobilinogen Qn (U) 0.2 {Barbara'U}/dL Normal 0.2 - 1. 0 [facility] Comment on above: Performed By: #### C VDTBH #### [facility] [address] [place] [address] Dr. Caitlin Martinez URINE MICROSCOPIC ONLYon BACTERIA MODERATE Abnormal NONE SEEN [facility] Comment on above: Performed By: #### C VDTBH #### [facility] [address] [place] [address] Dr. Caitlin Martinez Bacteria identified Cx Nom (U) INDICATED Normal [facility] Comment on above: Performed By: #### C VDTBH #### [facility] [address] [place] [address] Dr. Caitlin Martinez CAST NONE SEEN Normal NONE SEEN [facility] Comment on above: Performed By: #### C VDTBH #### [facility] [address] [place] [address] Dr. Caitlin Martinez Crystals LM Nom (Urine sed) NONE SEEN Normal NONE SEEN [facility] Comment on above: Performed By: #### C VDTBH #### [facility] [address] [place] [address] Dr. Caitlin Martinez Epithelial cells LM Ql (Urine sed) FEW Abnormal NONE SEEN /RARE [facility] Comment on above: Performed By: #### C VDTBH #### [facility] [address] [place] [address] Dr. Caitlin Martinez MUCOUS TRACE Abnormal NONE SEEN [facility] Comment on above: Performed By: #### C VDTBH #### [facility] [address] [place] [address] Dr. Caitlin Martinez RBC 2-5 Abnormal 0-2 [facility] Comment on above: Performed By: #### C VDTBH #### [facility] [address] [place] [address] Dr. Caitlin Martinez WBC 0-2 Abnormal NONE SEEN [facility] Comment on above: Performed By: #### C VDTBH #### [facility] [address] [place] [address] Dr. Caitlin Martinez AMYLASEon 01-16-2022 Amylase [Catalytic activity/Vol] 49 U/L Normal 25-115 [facility] Comment on above: Performed By: #### C VDTBH #### [facility] [address] [place] [address] Dr. Caitlin Martinez BUNon 01-16-2022 Urea nitrogen [Mass/Vol] 3.0 mg/dL Critically low 7.0-18.0 [facility] Comment on above: Performed By: #### C BC #### [facility] [address] [place] [address] Dr. Caitlin Martinez CBC AUTO DIFFon 01-16-2022 BASO # 0.1 103/ul Normal 0.0-0.1 [facility] Comment on above: Performed By: #### U RCX #### [facility] [address] [place] [address] Dr. Caitlin Martinez Basophils/100 WBC (Bld) 0.6 % Normal 0.2-2.0 [facility] Comment on above: Performed By: #### U RCX #### [facility] [address] [place] [address] Dr. Caitlin Martinez EO # 0.3 103/ul Normal 0.0-0.7 [facility] Comment on above: Performed By: #### U RCX #### [facility] [address] [place] [address] Dr. Caitlin Martinez Eosinophils/100 WBC (Bld) 2.6 % Normal 0.9-7.0 [facility] Comment on above: Performed By: #### U RCX #### [facility] [address] [place] [address] Dr. Caitlin Martinez Erythrocyte distribution width (RBC) [Ratio] 14.4 % Normal 11.0-15.0 [facility] Comment on above: Performed By: #### U RCX #### [facility] [address] [place] [address] Dr. Caitlin Martinez Hematocrit (Bld) [Volume fraction] 28.4 % Critically low 36.0-48.0 [facility] Comment on above: Performed By: #### U RCX #### [facility] [address] [place] [address] Dr. Caitlin Martinez Hemoglobin (Bld) [Mass/Vol] 9.0 g/dL Critically low 12.0-16.0 [facility] Comment on above: Performed By: #### U RCX #### [facility] [address] [place] [address] Dr. Caitlin Martinez IG # 0.11 10e3/ul Critically high 0.00-0.03 [facility] Comment on above: Performed By: #### U RCX #### [facility] [address] [place] [address] Dr. Caitlin Martinez IG % 1.1 % Critically high 0.0-0.5 [facility] Comment on above: Performed By: #### U RCX #### [facility] [address] [place] [address] Dr. Caitlin Martinez LYMPH # 2.2 103/ul Normal 1.2-3.8 [facility] Comment on above: Performed By: #### U RCX #### [facility] [address] [place] [address] Dr. Caitlin Martinez Lymphocytes/100 WBC (Bld) 21.0 % Normal 20.5-60.0 [facility] Comment on above: Performed By: #### U RCX #### [facility] [address] [place] [address] Dr. Caitlin Martinez MANUAL DIFF REQ NO Normal [facility] Comment on above: Performed By: #### U RCX #### [facility] [address] [place] [address] Dr. Caitlin Martinez MCH (RBC) [Entitic mass] 28.2 pg Normal 26.7-34.0 [facility] Comment on above: Performed By: #### U RCX #### [facility] [address] [address] [address] Caitlin Martinez MCHC (RBC) [Mass/Vol] 31.7 g/dL Normal 29.9-35.2 [facility] Comment on above: Performed By: #### U RCX #### [facility] [address] [address] [address] Caitlin Martinez MCV (RBC) [Entitic vol] 89.0 fL Normal 81.0-99.0 [facility] Comment on above: Performed By: #### U RCX #### [facility] [address] [place] [address] Dr. Caitlin Martinez MONO # 0.9 103/ul Critically high 0.3-0.8 [facility] Comment on above: Performed By: #### U RCX #### [facility] [address] [place] [address] Dr. Caitlin Martinez Monocytes/100 WBC (Bld) 8.9 % Normal 1.7-12.0 [facility] Comment on above: Performed By: #### U RCX #### [facility] [address] [place] [address] Dr. Caitlin Martinez NEUT # 6.8 103/ul Critically high 1.4-6.5 [facility] Comment on above: Performed By: #### U RCX #### [facility] [address] [place] [address] Dr. Caitlin Martinez Neutrophils/100 WBC (Bld) 65.8 % Normal 43.0-75.0 [facility] Comment on above: Performed By: #### U RCX #### [facility] [address] [place] [address] Dr. Caitlin Martinez Platelet mean volume (Bld) [Entitic vol] 8.6 fL Critically low 9.5-13.5 [facility] Comment on above: Performed By: #### U RCX #### [facility] [address] [place] [address] Dr. Caitlin Martinez PLT 322 103/ul Normal 150-450 [facility] Comment on above: Performed By: #### U RCX #### [facility] [address] [place] [address] Dr. Caitlin Martinez RBC 3.19 106/ul Critically low 4.20-5.40 [facility] Comment on above: Performed By: #### U RCX #### [facility] [address] [address] [address] Caitlin Martinez WBC 10.3 103/ul Normal 4.0-11.0 [facility] Comment on above: Performed By: #### U RCX #### [facility] [address] [place] [address] Dr. Caitlin Martinez CREATININEon 01-16-2022 Creatinine [Mass/Vol] 0.55 mg/dL Normal 0.55-1.02 [facility] Comment on above: Performed By: #### C VDTBH #### [facility] [address] [place] [address] Dr. Caitlin Martinez EGFR-AF ARMENIAN >60 Normal >=60 [facility] Comment on above: Performed By: #### C VDTBH #### [facility] [address] [place] [address] Dr. Caitlin Martinez EGFR-NON AF ARMENIAN >60 Normal >=60 [facility] Comment on above: Performed By: #### C VDTBH #### [facility] [address] [place] [address] Dr. Caitlin Martinez ELECTROLYTESon 01-16-2022 Anion gap [Moles/Vol] 13.6 mmol/L Normal [facility] Comment on above: Performed By: #### C VDTBH #### [facility] [address] [place] [address] Dr. Caitlin Martinez Chloride [Moles/Vol] 106 mmol/L Normal 98-107 [facility] Comment on above: Performed By: #### C VDTBH #### [facility] [address] [place] [address] Dr. Caitlin Martinez CO2 [Moles/Vol] 22.9 mmol/L Normal 21.0-32.0 [facility] Comment on above: Performed By: #### C VDTBH #### [facility] [address] [place] [address] Dr. Caitlin Martinez Potassium [Moles/Vol] 3.5 mmol/L Normal 3.5-5.1 [facility] Comment on above: Performed By: #### C VDTBH #### [facility] [address] [place] [address] Dr. Caitlin Martinez Sodium [Moles/Vol] 139 mmol/L Normal 136-145 [facility] Comment on above: Performed By: #### C VDTBH #### [facility] [address] [place] [address] Dr. Caitlin Martinez LIPASEon 01-16-2022 Lipase [Catalytic activity/Vol] 66.0 U/L Critically low 73.0-393.0 [facility] Comment on above: Performed By: #### C BC #### [facility] [address] [place] [address] Dr. Caitlin Martinez SGOTon 01-16-2022 AST [Catalytic activity/Vol] 12 U/L Critically low 15-37 [facility] Comment on above: Performed By: #### C VDTBH #### [facility] [address] [place] [address] Dr. Caitlin Martinez SGPTon 01-16-2022 ALT [Catalytic activity/Vol] 9 U/L Critically low 14-59 [facility] Comment on above: Performed By: #### C VDTBH #### [facility] [address] [place] [address] Dr. Caitlin Martinez CBC AUTO DIFFon 01-15-2022 BASO # 0.1 103/ul Normal 0.0-0.1 [facility] Comment on above: Performed By: #### C VDTBH #### [facility] [address] [place] [address] Dr. Caitlin Martinez Basophils/100 WBC (Bld) 0.4 % Normal 0.2-2.0 [facility] Comment on above: Performed By: #### C VDTBH #### [facility] [address] [place] [address] Dr. Caitlin Martinez EO # 0.2 103/ul Normal 0.0-0.7 [facility] Comment on above: Performed By: #### C VDTBH #### [facility] [address] [place] [address] Dr. Caitlin Martinez Eosinophils/100 WBC (Bld) 1.4 % Normal 0.9-7.0 [facility] Comment on above: Performed By: #### C VDTBH #### [facility] [address] [place] [address] Dr. Caitlin Martinez Erythrocyte distribution width (RBC) [Ratio] 14.1 % Normal 11.0-15.0 [facility] Comment on above: Performed By: #### C VDTBH #### [facility] [address] [place] [address] Dr. Caitlin Martinez Hematocrit (Bld) [Volume fraction] 28.4 % Critically low 36.0-48.0 [facility] Comment on above: Performed By: #### C VDTBH #### [facility] [address] [place] [address] Dr. Caitlin Martinez Hemoglobin (Bld) [Mass/Vol] 9.0 g/dL Critically low 12.0-16.0 [facility] Comment on above: Performed By: #### C VDTBH #### [facility] [address] [place] [address] Dr. Caitlin Martinez IG # 0.18 10e3/ul Critically high 0.00-0.03 [facility] Comment on above: Performed By: #### C VDTBH #### [facility] [address] [place] [address] Dr. Caitlin Martinez IG % 1.3 % Critically high 0.0-0.5 [facility] Comment on above: Performed By: #### C VDTBH #### [facility] [address] [place] [address] Dr. Caitlin Martinez LYMPH # 2.4 103/ul Normal 1.2-3.8 [facility] Comment on above: Performed By: #### C VDTBH #### [facility] [address] [place] [address] Dr. Caitlin Martinez Lymphocytes/100 WBC (Bld) 16.8 % Critically low 20.5-60.0 [facility] Comment on above: Performed By: #### C VDTBH #### [facility] [address] [place] [address] Dr. Caitlin Martinez MANUAL DIFF REQ NO Normal [facility] Comment on above: Performed By: #### C VDTBH #### [facility] [address] [place] [address] Dr. Caitlin Martinez MCH (RBC) [Entitic mass] 27.9 pg Normal 26.7-34.0 [facility] Comment on above: Performed By: #### C VDTBH #### [facility] [address] [place] [address] Dr. Caitlin Martinez MCHC (RBC) [Mass/Vol] 31.7 g/dL Normal 29.9-35.2 [facility] Comment on above: Performed By: #### C VDTBH #### [facility] [address] [place] [address] Dr. Caitlin Martinez MCV (RBC) [Entitic vol] 87.9 fL Normal 81.0-99.0 [facility] Comment on above: Performed By: #### C VDTBH #### [facility] [address] [place] [address] Dr. Caitlin Martinez MONO # 0.9 103/ul Critically high 0.3-0.8 [facility] Comment on above: Performed By: #### C VDTBH #### [facility] [address] [place] [address] Dr. Caitlin Martinez Monocytes/100 WBC (Bld) 6.7 % Normal 1.7-12.0 [facility] Comment on above: Performed By: #### C VDTBH #### [facility] [address] [place] [address] Dr. Caitlin Martinez NEUT # 10.3 103/ul Critically high 1.4-6.5 [facility] Comment on above: Performed By: #### C VDTBH #### [facility] [address] [place] [address] Dr. Caitlin Martinez Neutrophils/100 WBC (Bld) 73.4 % Normal 43.0-75.0 [facility] Comment on above: Performed By: #### C VDTBH #### [facility] [address] [place] [address] Dr. Caitlin Martinez Platelet mean volume (Bld) [Entitic vol] 9.0 fL Critically low 9.5-13.5 [facility] Comment on above: Performed By: #### C VDTBH #### [facility] [address] [place] [address] Dr. Caitlin Martinez PLT 318 103/ul Normal 150-450 [facility] Comment on above: Performed By: #### C VDTBH #### [facility] [address] [place] [address] Dr. Caitlin Martinez RBC 3.23 106/ul Critically low 4.20-5.40 [facility] Comment on above: Performed By: #### C VDTBH #### [facility] [address] [place] [address] Dr. Caitlin Martinez WBC 14.0 103/ul Critically high 4.0-11.0 [facility] Comment on above: Performed By: #### C VDTBH #### [facility] [address] [place] [address] ABD/PELVIS WO CONon [...] 2022-01-15 16:31 Normal [facility] CULTURE URINEon 01-15-2022 CULTURE URINE Culture Observations : LIGHT GROWTH OF MIXED GENITAL COSME. NO POTENTIAL PATHOGENS SEEN. Normal [facility] Comment on above: Performed By: #### U RCX #### [facility] [address] [place] [address] Dr. Caitlin Martinez UA (CLEAN/CATCH) MANAGER FRAUD/MICRO I F IND.on 01-15-2022 Bilirubin Ql (U) Negative Normal NEGATIVE [facility] Comment on above: Performed By: #### C BC #### [facility] [address] [place] [address] Dr. Caitlin Martinez Clarity (U) CLEAR Normal CLEAR [facility] Comment on above: Performed By: #### C BC #### [facility] [address] [place] [address] Dr. Caitlin Martinez Color (U) LT. YELLOW Normal YELLOW [facility] Comment on above: Performed By: #### C BC #### [facility] [address] [place] [address] Dr. Caitlin Martinez Glucose Ql (U) Negative Normal NEGATIVE [facility] Comment on above: Performed By: #### C BC #### [facility] [address] [place] [address] Dr. Caitlin Martinez Hemoglobin Ql (U) Negative Normal NEGATIVE [facility] Comment on above: Performed By: #### C BC #### [facility] [address] [place] [address] Dr. Caitlin Martinez Ketones Ql (U) Negative Normal NEGATIVE [facility] Comment on above: Performed By: #### C BC #### [facility] [address] [place] [address] Dr. Caitlin Martinez LEUKOCYTES TRACE Abnormal NEGATIVE [facility] Comment on above: Performed By: #### C BC #### [facility] [address] [place] [address] Dr. Caitlin Martinez Nitrite Ql (U) Negative Normal NEGATIVE [facility] Comment on above: Performed By: #### C BC #### [facility] [address] [place] [address] Dr. Caitlin Martinez pH (U) 7.0 [pH] Normal 5-9 [facility] Comment on above: Performed By: #### C BC #### [facility] [address] [place] [address] Dr. Caitlin Martinez SPEC GRAVITY 1.010 Normal 1.005-<=1.025 [facility] Comment on above: Performed By: #### C BC #### [facility] [address] [place] [address] Dr. Caitlin Martinez UA PROTEIN Negative Normal NEGATIVE/ TRACE [facility] Comment on above: Performed By: #### C BC #### [facility] [address] [place] [address] Dr. Caitlin Martinez UR MICRO IND INDICATED Normal [facility] Comment on above: Performed By: #### C BC #### [facility] [address] [place] [address] Dr. Caitlin Martinez Urobilinogen Qn (U) 0.2 {Barbara'U}/dL Normal 0.2 - 1. 0 [facility] Comment on above: Performed By: #### C BC #### [facility] [address] [place] [address] Dr. Caitlin Martinez URINE MICROSCOPIC ONLYon BACTERIA MODERATE Abnormal NONE SEEN [facility] Comment on above: Performed By: #### C BC #### [facility] [address] [place] [address] Dr. Caitlin Martinez Bacteria identified Cx Nom (U) INDICATED Normal [facility] Comment on above: Performed By: #### C BC #### [facility] [address] [place] [address] Dr. Caitlin Martinez CAST NONE SEEN Normal NONE SEEN [facility] Comment on above: Performed By: #### C BC #### [facility] [address] [place] [address] Dr. Caitlin Martinez Crystals LM Nom (Urine sed) NONE SEEN Normal NONE SEEN [facility] Comment on above: Performed By: #### C BC #### [facility] [address] [place] [address] Dr. Caitlin Martinez Epithelial cells LM Ql (Urine sed) MODERATE Abnormal NONE SEEN /RARE [facility] Comment on above: Performed By: #### C BC #### [facility] [address] [place] [address] Dr. Caitlin Martinez MUCOUS NONE SEEN Normal NONE SEEN [facility] Comment on above: Performed By: #### C BC #### [facility] [address] [place] [address] Dr. Caitlin Martinez RBC NONE SEEN Abnormal 0-2 [facility] Comment on above: Performed By: #### C BC #### [facility] [address] [place] [address] Dr. Caitlin Martinez WBC 2-5 Abnormal NONE SEEN [facility] Comment on above: Performed By: #### C BC #### [facility] [address] [place] [address] Dr. Caitlin Martinez US APPENDIXon 01-15-2022 US [...] 2022-01-15 14:14 Normal [facility] US PREG GROWTHon 01-15-2022 US PREG [...] 2022-01-15 10:59 Normal [facility] US PREG PLACENTAon US PREG PLACENTA [...] 2022-01-15 10:57 Normal [facility] UA (CLEAN/CATCH) MANAGER FRAUD/MICRO I F IND.on 12-29-2021 Bilirubin Ql (U) Negative Normal NEGATIVE [facility] Comment on above: Performed By: #### C BC #### [facility] [address] [place] [address] Dr. Caitlin Martinez Clarity (U) CLEAR Normal CLEAR [facility] Comment on above: Performed By: #### C BC #### [facility] [address] [place] [address] Dr. Cailtin Martinez Color (U) LT. YELLOW Normal YELLOW [facility] Comment on above: Performed By: #### C BC #### [facility] [address] [place] [address] Dr. Caitlin Martinez Glucose Ql (U) Negative Normal NEGATIVE [facility] Comment on above: Performed By: #### C BC #### [facility] [address] [place] [address] Dr. Caitlin Martinez Hemoglobin Ql (U) Negative Normal NEGATIVE [facility] Comment on above: Performed By: #### C BC #### [facility] [address] [place] [address] Dr. Caitlin Martinez Ketones Ql (U) Negative Normal NEGATIVE [facility] Comment on above: Performed By: #### C BC #### [facility] [address] [place] [address] Dr. Caitlin Martinez LEUKOCYTES Negative Normal NEGATIVE [facility] Comment on above: Performed By: #### C BC #### [facility] [address] [place] [address] Dr. Caitlin Martinez Nitrite Ql (U) Negative Normal NEGATIVE [facility] Comment on above: Performed By: #### C BC #### [facility] [address] [place] [address] Dr. Caitlin Martinez pH (U) 6.5 [pH] Normal 5-9 [facility] Comment on above: Performed By: #### C BC #### [facility] [address] [place] [address] Dr. Caitlin Martinez SPEC GRAVITY 1.020 Normal 1.005-<=1.025 [facility] Comment on above: Performed By: #### C BC #### [facility] [address] [place] [address] Dr. Caitlin Martinez UA PROTEIN Negative Normal NEGATIVE/ TRACE [facility] Comment on above: Performed By: #### C BC #### [facility] [address] [place] [address] Dr. Caitlin Martinez UR MICRO IND NOT INDICATED Normal [facility] Comment on above: Performed By: #### C BC #### [facility] [address] [place] [address] Dr. Caitlin Martinez Urobilinogen Qn (U) 1.0 {Barbara'U}/dL Normal 0.2 - 1. 0 [facility] Comment on above: Performed By: #### C BC #### [facility] [address] [place] [address] Dr. Caitlin Martinez US PREG CERVICAL LENGTHon [...] 2021-12-29 15:53 Normal [facility] UA (CLEAN/CATCH) MANAGER FRAUD/MICRO I F IND.on 12-18-2021 Bilirubin Ql (U) Negative Normal NEGATIVE [facility] Comment on above: Performed By: #### C BC #### [facility] [address] [place] [address] Dr. Caitlin Martinez Clarity (U) CLEAR Normal CLEAR [facility] Comment on above: Performed By: #### C BC #### [facility] [address] [place] [address] Dr. Caitlin Martinez Color (U) YELLOW Normal YELLOW [facility] Comment on above: Performed By: #### C BC #### [facility] [address] [place] [address] Dr. Caitlin Martinez Glucose Ql (U) Negative Normal NEGATIVE [facility] Comment on above: Performed By: #### C BC #### [facility] [address] [place] [address] Dr. Caitlin Martinez Hemoglobin Ql (U) Negative Normal NEGATIVE [facility] Comment on above: Performed By: #### C BC #### [facility] [address] [place] [address] Dr. Caitlin Martinez Ketones Ql (U) TRACE Abnormal NEGATIVE [facility] Comment on above: Performed By: #### C BC #### [facility] [address] [place] [address] Dr. Caitlin Martinez LEUKOCYTES Negative Normal NEGATIVE [facility] Comment on above: Performed By: #### C BC #### [facility] [address] [place] [address] Dr. Caitlin Martinez Nitrite Ql (U) Negative Normal NEGATIVE [facility] Comment on above: Performed By: #### C BC #### [facility] [address] [place] [address] Dr. Caitlin Martinez pH (U) 6.0 [pH] Normal 5-9 [facility] Comment on above: Performed By: #### C BC #### [facility] [address] [place] [address] Dr. Caitlin Martinez SPEC GRAVITY 1.025 Normal 1.005-<=1.025 [facility] Comment on above: Performed By: #### C BC #### [facility] [address] [place] [address] Dr. Caitlin Martinez UA PROTEIN Negative Normal NEGATIVE/ TRACE [facility] Comment on above: Performed By: #### C BC #### [facility] [address] [place] [address] Dr. Caitlin Martinez UR MICRO IND NOT INDICATED Normal [facility] Comment on above: Performed By: #### C BC #### [facility] [address] [place] [address] Dr. Caitlin Martinez Urobilinogen Qn (U) 4 {Barbara'U}/dL Abnormal 0.2 - 1.0 [facility] Comment on above: Performed By: #### C BC #### [facility] [address] [place] [address] Dr. Caitlin Martinez RHOGAMon 11-28-2021 RHOGAM Status Information Issued Quantity 1 Product ID Rh Immune Globulin Lot Number [id number] Issue Date/Time [id number] Normal [facility] Comment on above: Performed By: #### I HORACIO #### [facility] [address] [place] [address] Dr. Caitlin Martinez TYPE AND SCREENon 11-27-2021 TYPE AND SCREEN Negative Normal [facility] Comment on above: Performed By: #### T NS #### [facility] [address] [place] [address] Dr. Caitlin Martinez CULTURE URINEon 11-23-2021 CULTURE URINE Culture Observations : No growth Normal [facility] Comment on above: Performed By: #### I HORACIO #### [facility] [address] [place] [address] Dr. Caitlin Martinez UA (CLEAN/CATCH) MANAGER FRAUD/MICRO I F IND.on 11-23-2021 Bilirubin Ql (U) Negative Normal NEGATIVE [facility] Comment on above: Performed By: #### U RCX #### [facility] [address] [place] [address] Dr. Caitlin Martinez Clarity (U) CLEAR Normal CLEAR [facility] Comment on above: Performed By: #### U RCX #### [facility] [address] [place] [address] Dr. Caitlin Martinez Color (U) LT. YELLOW Normal YELLOW [facility] Comment on above: Performed By: #### U RCX #### [facility] [address] [place] [address] Dr. Caitlin Martinez Glucose Ql (U) Negative Normal NEGATIVE [facility] Comment on above: Performed By: #### U RCX #### [facility] [address] [place] [address] Dr. Caitlin Martinez Hemoglobin Ql (U) Negative Normal NEGATIVE [facility] Comment on above: Performed By: #### U RCX #### [facility] [address] [place] [address] Dr. Caitlin Martinez Ketones Ql (U) Negative Normal NEGATIVE [facility] Comment on above: Performed By: #### U RCX #### [facility] [address] [place] [address] Dr. Caitlin Martinez LEUKOCYTES SMALL Abnormal NEGATIVE [facility] Comment on above: Performed By: #### U RCX #### [facility] [address] [place] [address] Dr. Caitlin Martinez Nitrite Ql (U) Negative Normal NEGATIVE [facility] Comment on above: Performed By: #### U RCX #### [facility] [address] [place] [address] Dr. Caitlin Martinez pH (U) 6.5 [pH] Normal 5-9 [facility] Comment on above: Performed By: #### U RCX #### [facility] [address] [place] [address] Dr. Caitlin Martinez SPEC GRAVITY 1.010 Normal 1.005-<=1.025 [facility] Comment on above: Performed By: #### U RCX #### [facility] [address] [place] [address] Dr. Caitlin Martinez UA PROTEIN Negative Normal NEGATIVE/ TRACE [facility] Comment on above: Performed By: #### U RCX #### [facility] [address] [place] [address] Dr. Caitlin Martinez UR MICRO IND INDICATED Normal [facility] Comment on above: Performed By: #### U RCX #### [facility] [address] [place] [address] Dr. Caitlin Martinez Urobilinogen Qn (U) 0.2 {Barbara'U}/dL Normal 0.2 - 1. 0 [facility] Comment on above: Performed By: #### U RCX #### [facility] [address] [place] [address] Dr. Caitlin Martinez URINE MICROSCOPIC ONLYon BACTERIA TRACE Abnormal NONE SEEN [facility] Comment on above: Performed By: #### U RCX #### [facility] [address] [place] [address] Dr. Caitlin Martinez Bacteria identified Cx Nom (U) INDICATED Normal [facility] Comment on above: Performed By: #### U RCX #### [facility] [address] [place] [address] Dr. Caitlin Martinez CAST SEEN Abnormal NONE SEEN [facility] Comment on above: Performed By: #### U RCX #### [facility] [address] [place] [address] Dr. Caitlin Martinez Crystals LM Nom (Urine sed) SEEN Abnormal NONE SEEN [facility] Comment on above: Performed By: #### U RCX #### [facility] [address] [place] [address] Dr. Caitlin Martinez Epithelial cells LM Ql (Urine sed) RARE Normal NONE SEEN /RARE [facility] Comment on above: Performed By: #### U RCX #### [facility] [address] [place] [address] Dr. Caitlin Martinez MUCOUS TRACE Abnormal NONE SEEN [facility] Comment on above: Performed By: #### U RCX #### [facility] [address] [place] [address] Dr. Caitlin Martinez RBC 0-2 Normal 0-2 [facility] Comment on above: Performed By: #### U RCX #### [facility] [address] [place] [address] Dr. Caitlin Martinez WBC 2-[address] [facility] Comment on above: Performed By: #### U RCX #### [facility] [address] [place] [address] Dr. Caitlin Martinez GLUCOSE - 1HRon 11-06-2021 Glucose [Mass/Vol] 131 mg/dL Critically high 74-106 [facility] Comment on above: Performed By: #### I HORACIO #### [facility] [address] [place] [address] Dr. Caitlin Martinez HEMOGRAM AND PLATELon 2021 Hematocrit (Bld) [Volume fraction] 34.2 % Critically low 36.0-48.0 [facility] Comment on above: Performed By: #### C BC #### [facility] [address] [place] [address] Dr. Caitlin Martinez Hemoglobin (Bld) [Mass/Vol] 11.3 g/dL Critically low 12.0-16.0 [facility] Comment on above: Performed By: #### C BC #### [facility] [address] [place] [address] Dr. Caitlin Martinez MCH (RBC) [Entitic mass] 31.7 pg Normal 26.7-34.0 [facility] Comment on above: Performed By: #### C BC #### [facility] [address] [place] [address] Dr. Caitlin Martinez MCHC (RBC) [Mass/Vol] 33.0 g/dL Normal 29.9-35.2 [facility] Comment on above: Performed By: #### C BC #### [facility] [address] [place] [address] Dr. Caitlin Martinez MCV (RBC) [Entitic vol] 96.1 fL Normal 81.0-99.0 [facility] Comment on above: Performed By: #### C BC #### [facility] [address] [place] [address] Dr. Caitlin Martinez PLT 372 103/ul Normal 150-450 [facility] Comment on above: Performed By: #### C BC #### [facility] [address] [place] [address] Dr. Caitlin Martinez RBC 3.56 106/ul Critically low 4.20-5.40 [facility] Comment on above: Performed By: #### C BC #### [facility] [address] [place] [address] Dr. Caitlin Martinez WBC 10.1 103/ul Normal 4.0-11.0 [facility] Comment on above: Performed By: #### C BC #### [facility] [address] [place] [address] Dr. Caitlin Martinez CHLAMYDIA/GONOCOCCUS JONATAN ( AB/URINE/PAPon 10-31-2021 Chlamydia trachomatis, JONATAN Negative Normal Negative [facility] Comment on above: Performed By: #### C BC #### [facility] [address] [place] [address] Dr. Caitlin Martinez Neisseria gonorrhoeae, JONATAN Negative Normal Negative [facility] Comment on above: Performed By: #### C BC #### [facility] [address] [place] [address] Dr. Caitlin Martinez VAGINITIS/VAGINOSIS DNA PROB Paramjit 10-29-2021 Selena species Negative Normal Negative [facility] Comment on above: Performed By: #### U RCX #### [facility] [address] [address] [address] Caitlin Martinez Gardnerella vaginalis Negative Normal Negative [facility] Comment on above: Performed By: #### U RCX #### [facility] [address] [place] [address] Dr. Caitlin Martinez Trichomonas vaginalis Negative Normal Negative [facility] Comment on above: Performed By: #### U RCX #### [facility] [address] [address] [address] Caitlin Martinez US PREG INCOMPLETE ANATOMYon [...] 2021-10-26 12:05 Normal [facility] CBC W MANUAL DIFFon 10-25-19 22 ATYPICAL LYMPH # Normal [facility] Comment on above: Performed By: #### U RCX #### [facility] [address] [place] [address] Dr. Caitlin Martinez ATYPICAL LYMPH % Normal [facility] Comment on above: Performed By: #### U RCX #### [facility] [address] [place] [address] Dr. Caitlin Martinez BAND # 0.1 103/ul Normal 0.0-0.3 [facility] Comment on above: Performed By: #### U RCX #### [facility] [address] [place] [address] Dr. Caitlin Martinez BAND % 1 % Normal 0-5 [facility] Comment on above: Performed By: #### U RCX #### [facility] [address] [address] [address] Caitlin Martinez BASOM # 0.00 103/ul Normal 0.00-0.10 [facility] Comment on above: Performed By: #### U RCX #### [facility] [address] [address] [address] Caitlin Martinez BASOM % 0.0 % Critically low 0.2-2.0 [facility] Comment on above: Performed By: #### U RCX #### [facility] [address] [address] [address] Caitlin Martinez BLAST # Normal [facility] Comment on above: Performed By: #### U RCX #### [facility] [address] [place] [address] Dr. Caitlin Martinez BLAST % Normal [facility] Comment on above: Performed By: #### U RCX #### [facility] [address] [place] [address] Dr. Caitlin Martinez CORRECTED WBC Normal 4.0-11.0 [facility] Comment on above: Performed By: #### U RCX #### [facility] [address] [address] [address] Caitlin Martinez EOS # 0.12 103/ul Normal 0.00-0.70 [facility] Comment on above: Performed By: #### U RCX #### [facility] [address] [place] [address] Dr. Caitlin Martinez EOS% 1.0 % Normal 0.9-7.0 [facility] Comment on above: Performed By: #### U RCX #### [facility] [address] [place] [address] Dr. Caitlin Martinez HCT 31.5 % Critically low 36.0-48.0 [facility] Comment on above: Performed By: #### U RCX #### [facility] [address] [place] [address] Dr. Caitlin Martinez HGB 10.5 g/dl Critically low 12.0-16.0 [facility] Comment on above: Performed By: #### U RCX #### [facility] [address] [address] [address] Caitlin Martinez LYMPHM # 0.37 103/ul Critically low 1.20-3.80 [facility] Comment on above: Performed By: #### U RCX #### [facility] [address] [address] [address] Caitlin Martinez LYMPHM% 3.0 % Critically low 20.5-60.0 [facility] Comment on above: Performed By: #### U RCX #### [facility] [address] [address] [address] Caitlin Martinez MCH 31.8 pg Normal 26.7-34.0 [facility] Comment on above: Performed By: #### U RCX #### [facility] [address] [place] [address] Dr. Caitlin Martinez MCHC 33.3 g/dl Normal 29.9-35.2 [facility] Comment on above: Performed By: #### U RCX #### [facility] [address] [place] [address] Dr. Caitlin Martinez MCV 95.5 fL Normal 81.0-99.0 [facility] Comment on above: Performed By: #### U RCX #### [facility] [address] [place] [address] Dr. Caitlin Martinez METAMYELOCYTE # Normal [facility] Comment on above: Performed By: #### U RCX #### [facility] [address] [address] [address] Caitlin Martinez METAMYELOCYTE % Normal [facility] Comment on above: Performed By: #### U RCX #### [facility] [address] [place] [address] Dr. Caitlin Martinez MONOM# 0.73 103/ul Normal 0.30-0.80 [facility] Comment on above: Performed By: #### U RCX #### [facility] [address] [address] [address] Caitlin Martinez MONOM% 6.0 % Normal 1.7-12.0 [facility] Comment on above: Performed By: #### U RCX #### [facility] [address] [address] [address] Caitlin Martinez MPV 9.5 fL Normal 9.5-13.5 [facility] Comment on above: Performed By: #### U RCX #### [facility] [address] [address] [address] Caitlin Martinez MYELOCYTE # Normal [facility] Comment on above: Performed By: #### U RCX #### [facility] [address] [address] [address] Caitlin Martinez MYELOCYTE % Normal [facility] Comment on above: Performed By: #### U RCX #### [facility] [address] [place] [address] Dr. Caitlin Martinez NRBC Normal [facility] Comment on above: Performed By: #### U RCX #### [facility] [address] [place] [address] Dr. Caitlin Martinez PLT 275 103/ul Normal 150-450 [facility] Comment on above: Performed By: #### U RCX #### [facility] [address] [place] [address] Dr. Caitlin Martinez RBC 3.30 106/ul Critically low 4.20-5.40 [facility] Comment on above: Performed By: #### U RCX #### [facility] [address] [place] [address] Dr. Caitlin Martinez RDW 13.6 % Normal 11.0-15.0 [facility] Comment on above: Performed By: #### U RCX #### [facility] [address] [address] [address] Caitlin Martinez SEG # 10.86 103/ul Critically high 1.40-6.50 [facility] Comment on above: Performed By: #### U RCX #### [facility] [address] [place] [address] Dr. Caitlin Martinez SEG % 89.0 % Critically high 43.0-75.0 [facility] Comment on above: Performed By: #### U RCX #### [facility] [address] [address] [address] Caitlin Martinez WBC 12.2 103/ul Critically high 4.0-11.0 [facility] Comment on above: Performed By: #### U RCX #### [facility] [address] [address] [address] Caitlin Martinez ER URINE PROFILEon 2 Bilirubin Ql (U) Negative Normal NEGATIVE [facility] Comment on above: Performed By: #### C VDTBH #### [facility] [address] [address] [address] Caitlin Martinez Clarity (U) SL CLOUDY Abnormal CLEAR [facility] Comment on above: Performed By: #### C VDTBH #### [facility] [address] [place] [address] Dr. Caitlin Martinez Color (U) YELLOW Normal YELLOW [facility] Comment on above: Performed By: #### C VDTBH #### [facility] [address] [place] [address] Dr. Caitlin Martinez ERUNadine A micrscopic examination will be performed if indicated. Normal [facility] Comment on above: Performed By: #### C VDTBH #### [facility] [address] [place] [address] Dr. Caitlin Martinez Glucose Ql (U) Negative Normal NEGATIVE [facility] Comment on above: Performed By: #### C VDTBH #### [facility] [address] [address] [address] Caitlin Martinez Hemoglobin Ql (U) Negative Normal NEGATIVE [facility] Comment on above: Performed By: #### C VDTBH #### [facility] [address] [place] [address] Dr. Caitlin Martinez Ketones Ql (U) >=80 Abnormal NEGATIVE [facility] Comment on above: Performed By: #### C VDTBH #### [facility] [address] [place] [address] Dr. Caitlin Martinez LEUKOCYTES Negative Normal NEGATIVE [facility] Comment on above: Performed By: #### C VDTBH #### [facility] [address] [place] [address] Dr. Caitlin Martinez Nitrite Ql (U) Negative Normal NEGATIVE [facility] Comment on above: Performed By: #### C VDTBH #### [facility] [address] [place] [address] Dr. Caitlin Martinez pH (U) 6.0 [pH] Normal 5-9 [facility] Comment on above: Performed By: #### C VDTBH #### [facility] [address] [place] [address] Dr. Caitlin Martinez SPEC GRAVITY 1.020 Normal 1.005-<=1.025 [facility] Comment on above: Performed By: #### C VDTBH #### [facility] [address] [place] [address] Dr. Caitlin Martinez UA PROTEIN Negative Normal NEGATIVE/ TRACE [facility] Comment on above: Performed By: #### C VDTBH #### [facility] [address] [place] [address] Dr. Caitlin Martinez UR MICRO IND NOT INDICATED Normal The [facility] Comment on above: Performed By: #### C VDTBH #### [facility] [address] [place] [address] Dr. Caitlin Martinez Urobilinogen Qn (U) 1.0 {Barbara'U}/dL Normal 0.2 - 1. 0 [facility] Comment on above: Performed By: #### C VDTBH #### [facility] [address] [place] [address] Dr. Caitlin Martinez INFLUENZA A AND B AGon 10-24 [facility] Normal [facility] Comment on above: Result Comment: Nega tive for Flu B protein antigen. Infection due to Flu B cannot be ruled out. Flu B antigen in the sample may be below the detection limit of the test. Performed By: #### C VDTBH #### [facility] [address] [place] [address] Dr. Caitlin Martinez INFLUENZA A AG Positive Abnormal NEGATIVE SEE COMMENT [facility] Comment on above: Performed By: #### C VDTBH #### [facility] [address] [place] [address] Dr. Caitlin Martinez INFLUENZA B AG Negative Normal NEGATIVE SEE COMMENT [facility] Comment on above: Performed By: #### C VDTBH #### [facility] [address] [place] [address] Dr. Caitlin Martinez INFLUPOSH SEE BELOW Normal [facility] Comment on above: Result Comment: NOTE : Live attenuated influenzae vaccine viruses can cause a positive result for a rapid influenza diagnostic test if administered up to 7 days prior to rapid testing. Performed By: #### C VDTBH #### [facility] [address] [place] [address] Dr. Caitlin Martinez INTERNAL CONTROLS Within Normal Limits Normal Wi thin Normal Limits [facility] Comment on above: Performed By: #### C VDTBH #### [facility] [address] [place] [address] Dr. Caitlin Martinez PROF CHEM 8 (BAS METB)on Anion gap [Moles/Vol] 14.4 mmol/L Normal [facility] Comment on above: Performed By: #### D RHONA, ABID #### [facility] [address] [place] [address] Dr. Caitlin Martinez Calcium [Mass/Vol] 8.4 mg/dL Critically low 8.5-10.1 [facility] Comment on above: Performed By: #### D RHONA, ABID #### [facility] [address] [place] [address] Dr. Caitlin Martinez Chloride [Moles/Vol] 101 mmol/L Normal 98-107 [facility] Comment on above: Performed By: #### D RHONA, ABID #### [facility] [address] [place] [address] Dr. Caitlin Martinez CO2 [Moles/Vol] 19.7 mmol/L Critically low 21.0-32.0 [facility] Comment on above: Performed By: #### D RHONA, ABID #### [facility] [address] [address] [address] Caitlin Martinez Creatinine [Mass/Vol] 0.55 mg/dL Normal 0.55-1.02 [facility] Comment on above: Performed By: #### D IRCMB, ABID #### [facility] [address] [address] [address] Caitlin Martinez EGFR-AF ARMENIAN >60 Normal >=60 [facility] Comment on above: Performed By: #### D IRCMB, ABID #### [facility] [address] [address] [address] Caitlin Martinez EGFR-NON AF ARMENIAN >60 Normal >=60 [facility] Comment on above: Performed By: #### D IRCMB, ABID #### [facility] [address] [address] [address] Caitlin Martinez Glucose [Mass/Vol] 91 mg/dL Normal 74-106 [facility] Comment on above: Performed By: #### D IRCMB, ABID #### [facility] [address] [address] [address] Caitlin Martinez Potassium [Moles/Vol] 3.1 mmol/L Critically low 3.5-5.1 [facility] Comment on above: Performed By: #### D IRCMB, ABID #### [facility] [address] [address] [address] Caitlin Martinez Sodium [Moles/Vol] 132 mmol/L Critically low 136-145 [facility] Comment on above: Performed By: #### D IRCMB, ABID #### [facility] [address] [address] [address] Caitlin Martinez Urea nitrogen [Mass/Vol] 7.0 mg/dL Normal 7.0-18.0 [facility] Comment on above: Performed By: #### D IRCMB, ABID #### [facility] [address] [address] [address] Caitlin Martinez Urea nitrogen/Creatinine [Mass ratio] 12.7 mg/mg Normal [facility] Comment on above: Performed By: #### D IRCMB, ABID #### [facility] [address] [address] [address] Caitlin Martinez US PREG ANATOMY SINGLEon [...] by: DAVID BLACKMON Date: 2021-09-28 09:17 Normal [facility] CHEMISTRYOrdered By: SYSTEM SYSTEM on 06-21-2021 [place] [address] m[IU]/mL High 1 - 3 mIU/mL [facility] [...] gas pattern is nonobstructive. There is a xeefdsci-ks-yguil amount of stool burden. IMPRESSION: No malalignment. No acute compression deformity. Ehdprtsv-xl-byysl amount of stool burden. [employer] Workstation ID: [id number] Dictated by: LUBA GARCÍA on [facility] Mar 05, 2020 4:09:51 PM EDT Transcribed by: KELVIN GUADALUPE on [facility] Mar 05, 2020 4:17:18 PM EDT Finalized by: LUBA GARCÍA on [facility] Mar 05, 2020 7:52:11 PM EDT Normal [facility] Comment on above: Order Comment: Injur y/Trauma or Illness?:Illness/Other How long have you had these symptoms (acute/chronic)?:Chronic Reason for exam?:low back pain History of cancer?:n Surgeries, chemotherapy, or radiation?:n Type of Exam?:Initial Additional signs and symptoms?:fibromyalgia XR Lumbar Spine 2-3 Views (S tandard)on 03-05-2020 No malalignment. No acute compression deformity. Sxobyjtp-nr-ayvgh amount of stool burden. [employer] Workstation ID: [id number] [facility] EXAMINATION: XR LUMBAR SPINE 2-3 VIEWS [...] gas pattern is nonobstructive. There is a lmlybcmp-sw-dcdgv amount of stool burden. [facility] Interface, Rad In Jose Luis Speechq [...] gas pattern is nonobstructive. There is a nljvwsof-vg-bkcgc amount of stool burden. IMPRESSION: No malalignment. No acute compression deformity. Xyugisrg-ue-ajykm amount of stool burden. [employer] Workstation ID: [id number] [facility] CNOVon 10-28-2018 CNOV Office Visit (OLVIN ) SANDY GODINEZ ([id number]) 1995 F Date Time Provider Department 10/28/18 [...] Farrah Garcia MD [address] [place] [address] Consult requested for an opinion regarding the [...] TIME: 12:44 PM Referring Provider: FARRAH GARCIA [[id number]] Allergies As of Date: 10/28/2018 (No Known [...] by WARREN RODRIGUEZ MD on 10/29/18 Normal [facility] PROGRESSon 10-28-2018 Protein mass conc HNO ID: [id number] Author: Warren Rodriguez Service: ? Author Type: Physician Type: Progress Notes Filed: 10/29/2018 3:03 PM Note Text: VASCULAR SURGERY INITIAL CONSULT SERVICE DATE: 10/28/2018 SERVICE TIME: 12:44 PM PRIMARY CARE PHYSICIAN: Farrah Garcia MD REFERRING PROVIDER: Farrah Garcia MD [address] [facility] [facility] [address] Consult requested for an opinion regarding the [...] October 28, 2018 TIME: 12:44 PM Normal [facility] Vital Signs Date Time Vital Sign Value Performing Clinician Chiquis zaragoza 07-19-2023 09:31-0500 Body mass index (BMI) [Ratio] 26.79 kg/m2 [facility] Nurse [facility] 07-19-2023 09:31-0500 Body weight 73.03 kg [facility] Nurse [facility] 07-19-2023 09:31-0500 Diastolic blood pressure 72 mm[Hg] [facility] Nurse [facility] 07-19-2023 09:31-0500 Systolic blood pressure 118 mm[Hg] [facility] Nurse [facility] Encounters Encounter Date Encounter Type Care Provider Facility Start: 02-03-2024 End: 02-03-2024 ambulatory JOSE MIGUEL JUSTEN Not Available Start: 01-27-2024 End: 01-27-2024 ambulatory JOSE MIGUEL JUSTEN Not Available Start: 01-20-2024 End: 01-20-2024 ambulatory JOSE MIGUEL JUSTEN Not Available Start: 01-06-2024 End: 01-06-2024 ambulatory MICHAEL CHAN Not Available Start: 12-23-2023 End: 12-23-2023 ambulatory JOSE MIGUEL JUSTEN Not Available Start: 12-05-2023 End: 12-05-2023 ambulatory JOSE MIGUEL JUSTEN Not Available Start: 11-25-2023 End: 11-25-2023 ambulatory JOSE MIGUEL JUSTEN Not Available Start: 11-12-2023 End: 11-12-2023 ambulatory JOSE MIGUEL JUSTEN Not Available Start: 11-07-2023 End: 11-08-2023 ambulatory JOSE MIGUEL R JUSTEN [facility] Start: 10-15-2023 End: 10-15-2023 ambulatory JOSE [...] Not Available Start: 07-08-2023 ambulatory Royer Layne acility:[facility] Start: 07-02-2023 End: 07-02-2023 ambulatory JOSE MIGUEL [...] Start: 10-26-2021 End: 10-26-[address] DOCTOR MISC Facility:[facility] Start: 10-26-2021 End: 10-27-[address] DOCTOR MISC Facility:[facility] Start: 10-24-2021 End: 10-24-[address] LORENZANA MISC Facility:[facility] Start: 09-28-2021 End: 09-29-[address] JOSE MIGUEL CAMPUZANO Facility:[facility] Start: 09-16-2021 End: 09-16-2021 ambulatory ILIR JUAREZ Facility:[facility] Start: 06-21-2021 End: 09-19-2021 Recurring Jose Miguel CAMPUZANO [facility] Start: 03-05-2020 End: 03-06-2020 Patient encounter procedure VIBHA JOHNSON [facility] Start: 03-05-2020 End: 03-05-2020 Subsequent hospital visit by physician Vibha Johnson Work Phone: [facility] Comment on above: Chronic low [...] AM EST Routine [facility] [address] [place] [id number] Jose Miguel Campuzano, DO [address] [place] [address] [facility] Start: 07-19-2023 End: 07-19-2024 ABO/Rh ABO/Rh Lab Routine Missed menses Expected: 07/19/2023 (Approximate), Expires: 07/19/2024 [facility] Comment on above: Expected: 07/19/2023 (Approximate), Expires: 07/19/2024 Start: 07-19-2023 End: 07-19-2024 Blood type and Indirect antibody screen panel - Blood Type and screen Lab Routine Missed menses Expected: 07/19/2023 (Approximate), Expires: 07/19/2024 [facility] Work Phone: Comment on above: Expected: 07/19/2023 (Approximate), Expires: 07/19/2024 Start: 07-19-2023 End: 07-19-2024 US Pelvis transvaginal US OB transvaginal Imaging Routine Missed menses Expected: 07/19/2023 (Approximate), Expires: 07/19/2024 [facility] Comment on above: Expected: 07/19/2023 (Approximate), Expires: 07/19/2024 Start: 02-16-2020 Influenza vaccinatio n given Sequential Influenza Vaccine (#1) [facility] Start: 2014 Hepatitis C antibody , confirmatory test Hepatitis C Screening [facility] Start: 08-31-2011 HIV screening HIV Screening [facility] Start: 08-31-2007 Vaccination for [place] papillomavirus HPV Vaccines (1 - 2-dose series) [facility] Start: 08-31-1999 History and physical examination, annual for health maintenance Wellness Visit [facility] Start: 1996 Screening for Chlamy tristan trachomatis Chlamydia Screening [facility] Start: 1996 Screening for malign ant neoplasm of cervix Pap Smear [facility] Start: 1996 Tetanus vaccination Tetanus: Every 1 0yrs [facility] Bacteria identified in Urine by Culture Urine culture Microbiology Routine Missed menses Ordered: 07/19/2023 [facility] Comment on above: Ordered: 07/19/2023 CBC W Auto Different ial panel - Blood CBC and differential Lab Routine Missed menses Ordered: 07/19/2023 [facility] Comment on above: Ordered: 07/19/2023 Hemoglobin A1c measurement Hemoglobin A1c Lab Routine Missed menses Ordered: 07/19/2023 [facility] Comment on above: Ordered: 07/19/2023 Hepatitis B virus knight rface Ag [Presence] in Serum or Plasma by Immunoassay Hepatitis B surface antigen Lab Routine Missed menses Ordered: 07/19/2023 [facility] Comment on above: Ordered: 07/19/2023 Hepatitis C virus Ab [Presence] in Serum or Plasma by Immunoassay Hepatitis C antibody Lab Routine Missed menses Ordered: 07/19/2023 [facility] Comment on above: Ordered: 07/19/2023 HIV-1/HIV-2 antigen/antibody combination immunoassay HIV-1 and HIV-2 antibodies Lab Routine Missed menses Ordered: 07/19/2023 [facility] Comment on above: Ordered: 07/19/2023 Reagin Ab [Presence] in Serum by RPR RPR Lab Routine Missed menses Ordered: 07/19/2023 [facility] Comment on above: Ordered: 07/19/2023 Rubella antibody, IgG Rubella an tibody, IgG Lab Routine Missed menses Ordered: 07/19/2023 [facility] Comment on above: Ordered: 07/19/2023 Payers Date Payer Category Payer Self-pay 2022 Medicaid [employer] [place] [id number] 2022-Present [address] [place] [address] [id number] 1996 Unknown [id number] 2.16.840.1.568291.3.579.2.903 1996 Unknown [id number] 2.16.840.1.888278.3.579.2.593 1996 Unknown [id number] 2.16.840.1.880035.3.579.2.593 1996 Unknown [id number] 2.16.840.1.525727.3.579.2.593 1996 Unknown [id number] 2.16.840.1.678794.3.579.2.593 1996 Unknown [id number] 2.16.840.1.818476.3.579.2.593 1996 Unknown [id number] 2.16.840.1.117853.3.579.2.593 1996 Unknown [id number] 2.16.840.1.353195.3.579.2.593 1996 Unknown [id number] 2.16.840.1.030276.3.579.2.593 1996 Unknown [id number] 2.16.840.1.768912.3.579.2.593 1996 Unknown [id number] 2.16.840.1.677278.3.579.2.593 1996 Unknown [id number] 2.16.840.1.121319.3.579.2.593 1996 Unknown [id number] 2.16.840.1.777830.3.579.2.593 1996 Unknown [id number] 2.16.840.1.396565.3.579.2.593 1996 Unknown [id number] 2.16.840.1.958870.3.579.2.593 1996 Unknown [id number] 2.16.840.1.330230.3.579.2.593 1996 Unknown [id number] 2.16.840.1.439954.3.579.2.593 1996 Unknown [id number] 2.16.840.1.903065.3.579.2.593 1996 Unknown [id number] 2.16.840.1.162788.3.579.2.593 1996 Unknown [id number] 2.16.840.1.184402.3.579.2.593 1996 Unknown [id number] 2.16.840.1.069153.3.579.2.593 1996 Unknown [id number] 2.16.840.1.187728.3.579.2.593 1996 Unknown [id number] 2.16.840.1.812057.3.579.2.1286 1996 Unknown [id number] 2.16.840.1.990187.3.579.2.1286 1996 Unknown [id number] 2.16.840.1.756349.3.579.2.1258 1996 Unknown [id number] 2.16840.1.344949.3.579.2.1258 1996 Unknown [id number] 2.16840.1.785287.3.579.2.1258 1996 Unknown [id number] 2.16840.1.044780.3.579.2.1258 1996 Unknown [id number] 2.16840.1.338282.3.579.2.1258 1996 Unknown [id number] 2.840.1.390904.3.579.2.1258 1996 Unknown [id number] 2.840.1.029472.3.579.2.1258 1996 Unknown [id number] 2.840.1.102677.3.579.2.1258 1996 Unknown [id number] 2.16840.1.436199.3.579.2.1258 1996 Unknown [id number] 2.16840.1.163947.3.579.2.1258 1996 Unknown [id number] 2.840.1.154336.3.579.2.1258 1996 Unknown [id number] 2.840.1.606299.3.579.2.1258 1996 Unknown [id number] 2.840.1.525586.3.579.2.1258 1959 Unknown [id number] 1959 Unknown [id number] Unknown COMMERCIAL COMME RCIAL MISCELLANEOUS [id number] Effective for all dates [id number] 1.2.840.849561.1.13.385.2.7.3. 993779.315 Unknown [id number] Unknown [id number] 840.1.859512.3.579.2.531 Social History Date Type Detail Facility Tobacco smoking stat us NHIS Unknown if ever smoked [facility] Sex Assigned At Not on file [facility] Start: 12-07-2022 Sex Assigned At Female Hussain Ngo [facility] Start: 12-07-2022 Tobacco smoking status NHIS Never smoked tobacco [facility] Start: 07-19-2023 Alcohol intake Current drinker of alcohol (finding) [facility] Start: 12-07-2022 History of Social function [facility] Start: 12-07-2022 Alcohol Comment 1-2 drinks less than monthly in the past year [facility] Start: 05-31-2023 [facility] Start: 1995 Sex Assigned At Female [facility] Start: 11-29-2022 Gender identity Identifies as female gender (finding) [facility] Start: 11-29-2022 Sexual orientation Heterosexual (finding) [facility] History of Present illness Narrative 07-19-2023 [...] sent for nausea to pharmacy. Pt desires [place] [address] and understands to have it done at 10 weeks along w/her labs. Follow Up: Patient is to have labs drawn at directed and return to office for initial OB appointment with provider. Patient may call office as needed with any concerns or questions. Nurse Visit Completed by: Cori Daniel MA documented in this encounter [facility] Clinical Note 01-16-2022 Note Date [...] Date: 2022-01-16 21:33 [facility] Note 01-16-2022 Note Date & [...] Date: 2022-01-16 21:33 [facility] Note 01-15-2022 Note Date & [...] Date: 2022-01-15 10:10 [facility] Evaluation + Plan note Note Date & Type Note Facility Evaluation + Plan note No data available for this section [facility] Evaluation note Note Date & Type Note Facility Evaluation note Diagnosis Missed menses Nausea Nausea alone documented in this encounter 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 DATE CREATED AUTHOR AUTHOR'S ORGANIZ ATION 09/17/2023 [facility] DATE CREATED AUTHOR AUTHOR'S ORGANIZ ATION 11/09/2023 [facility] DATE CREATED AUTHOR AUTHOR'S ORGANIZ ATION 02/03/2024 [facility] EPIC Reason for Visit (unrecogniz ed [...] CLINICAL RECORDS. [facility] [employer] provides no warranty or guarantee of the accuracy or completeness of information in this document.
[2024-02-06] MEDS: 0.9 % SODIUM CHLORIDE 1,000 ML 125 ML IV (05:40)
[2024-02-06 05:49] LABS: Hematocrit 31.2 % (36.0-48.0); Hemoglobin 9.8 g/dL (12.0-16.0); Mean Corpuscular HGB Conc 31.4 g/dL (29.9-35.2); Mean Corpuscular Hemoglobin 27.3 pg (26.7-34.0); Mean Corpuscular Volume 86.9 fL (81.0-99.0); Mean Platelet Volume 9.6 fL (9.5-13.5); Platelet Count 342 10^3/uL (150-450); Red Blood Count 3.59 10^6/uL (4.20-5.40); Red Cell Distribution Width 15.2 % (11.0-15.0); White Blood Count 10.7 10^3/uL (4.0-11.0)
[2024-02-06] MEDS: OXYTOCIN/0.9 % SODIUM CHLORIDE 10 UNITS/500 ML PLAST..BAG 6 UNIT IV (06:00)
[2024-02-06 08:04] LABS: Amphetamine Screen Urine NEGATIVE (NEGATIVE); Barbiturates Screen Urine NEGATIVE (NEGATIVE); Benzodiazepines Screen Urine NEGATIVE (NEGATIVE); Buprenorphine Screen Urine NEGATIVE (NEGATIVE); Cannabinoid Screen Urine NEGATIVE (NEGATIVE); Cocaine Screen Urine NEGATIVE (NEGATIVE); Methadone Screen Urine NEGATIVE (NEGATIVE); Methamphetamines Screen Urine NEGATIVE (NEGATIVE); Opiate Screen Urine NEGATIVE (NEGATIVE); Oxycodone Screen Urine NEGATIVE (NEGATIVE); Phencyclidine Screen Urine NEGATIVE (NEGATIVE); Tricyclic Antidepressant Urine NEGATIVE (NEGATIVE)
[2024-02-06] MEDS: NALBUPHINE HCL 10 MG/ML AMPULE IV (08:54)
--- NOTE | 2024-02-06 12:56 | PM.OBPRCVD ---
Procedure Intrapartal events: None Induction method: per pitocin protocol Delivery augmentation: rupture of membranes and pitocin Delivery monitor: external FHT and external uterine Route of delivery: Episiotomy Description: none L&D Laceration Description: perineal - 1st degree Delivery repair: Vicryl Estimated blood loss (mL): 300 Anesthesia type: Epidural Disposition: PACU Delivery date: 02/06/24 Gender: male presentation: vertex Placental delivery description: Spontaneous cord description: 3 Vessels
[2024-02-06] MEDS: OXYTOCIN/0.9 % SODIUM CHLORIDE 20 UNITS/1,000 ML PLAST..BAG 125 UNIT IV (13:25)
[2024-02-06] MEDS: IBUPROFEN 600 MG TABLET PO ×2 (13:53→23:36)
[2024-02-06] MEDS: GLYCERIN/WITCH HAZEL PADS 1 PAD TOPICAL (16:04)
[2024-02-06] MEDS: BENZOCAINE/MENTHOL 85 GRAM SPRAY BOTTLE 1 APPLIC TOPICAL (16:05)
[2024-02-07] MEDS: ACETAMINOPHEN 325 MG TABLET 650 MG PO ×3 (04:32→20:58)
[2024-02-07 07:02] LABS: Basophils Absolute Auto 0.1 10^3/uL (0.0-0.1); Basophils Percent Auto 0.5 % (0.2-2.0); Eosinophils Absolute Auto 0.2 10^3/uL (0.0-0.7); Eosinophils Percent Auto 1.8 % (0.9-7.0); Hematocrit 28.8 % (36.0-48.0); Hemoglobin 9.1 g/dL (12.0-16.0); Immature Granulocytes Abs Auto 0.14 10^3/uL (0.00-0.03); Immature Granulocytes Pct Auto 1.1 % (0.0-0.5); Lymphocytes Absolute Auto 2.7 10^3/uL (1.2-3.8); Lymphocytes Percent Auto 20.5 % (20.5-60.0); Mean Corpuscular HGB Conc 31.6 g/dL (29.9-35.2); Mean Corpuscular Hemoglobin 27.2 pg (26.7-34.0); Mean Platelet Volume 9.6 fL (9.5-13.5); Monocytes Absolute Auto 1.1 10^3/uL (0.3-0.8); Monocytes Percent Auto 8.8 % (1.7-12.0); Neutrophils Absolute Auto 8.8 10^3/uL (1.4-6.5); Neutrophils Percent Auto 67.3 % (43.0-75.0); Platelet Count 324 10^3/uL (150-450); Red Blood Count 3.35 10^6/uL (4.20-5.40); Red Cell Distribution Width 15.2 % (11.0-15.0)
--- NOTE | 2024-02-07 07:48 | PM.OBPN ---
OB - PN: Subj Subjective Patient comments: no complaints and pain well controlled [place] status: doing well Exam Constitutional Vital Signs, click to edit/add: Last Vital Signs Temp 97.6 F 02/06/24 23:42 Pulse 74 02/06/24 23:42 Resp 16 02/06/24 06:57 BP 106/66 02/06/24 23:42 O2 Del Method Room Air 02/06/24 06:57 Documenting provider has reviewed patient's vital signs: yes Common normals: no apparent distress Respiratory Common normals: normal respiratory effort and clear to auscultation bilaterally Cardio Common normals: regular rate and regular rhythm GI Common normals: Normal to inspection, nondistended, normoactive bowel sounds present Extremity Common normals: no clubbing, cyanosis or edema Results Labs Labs: Short CBC 02/07/24 Range/Units 05:56 WBC 13.0 H (4.0-11.0) 10^3/uL Hgb 9.1 L (12.0-16.0) g/dL Hct 28.8 L (36.0-48.0) % Plt Count 324 (150-450) 10^3/uL OB - PN: A/P Plan - Vaginal Delivery day: 1 Plan: routine care Time Spent with Patient Time: Total time spent is greater than 50% in coordination of care (as documented) at patient's floor/unit and/or counseling patient: Total time spent with greater than 50% in coordination of care (as documented) at patient's floor/unit and/or counseling patient: less than 15 minutes
[2024-02-07 08:10] VITALS: BP 105/59; PULSE 78; TEMP 36.8
[2024-02-07] MEDS: IBUPROFEN 600 MG TABLET PO ×2 (08:11→16:37)
[2024-02-07 08:13] VITALS: BP 105/59; PULSE 78
[2024-02-07] MEDS: DOCUSATE SODIUM 100 MG CAPSULE PO ×2 (08:23→20:58)
[2024-02-07] MEDS: RHO(D) IMMUNE GLOBULIN 1,500 UNIT SYRINGE 1500 UNIT IV (10:14)
[2024-02-07 16:34] VITALS: BP 123/73; PULSE 84
[2024-02-07 16:35] VITALS: BP 123/73; PULSE 84
[2024-02-08 00:21] VITALS: BP 108/56; PULSE 72; PULSE 84; TEMP 36.6
[2024-02-08] MEDS: IBUPROFEN 600 MG TABLET PO ×2 (02:52→08:30)
--- NOTE | 2024-02-08 07:18 | PC.NURSE ---
Report given to Cooper Navarro RN
[2024-02-08] MEDS: DOCUSATE SODIUM 100 MG CAPSULE PO (08:30)
[2024-02-08] MEDS: ACETAMINOPHEN 325 MG TABLET 650 MG PO (08:31)
[2024-02-08 09:10] VITALS: BP 117/66; PULSE 82
[2024-02-08 09:27] VITALS: TEMP 36.6
--- NOTE | 2024-02-08 10:47 | PM.OBPN ---
OB - PN: Subj Subjective Patient comments: no complaints [place] status: doing well Exam Constitutional Vital Signs, click to edit/add: Last Vital Signs Temp 97.8 F 02/08/24 09:27 Pulse 82 02/08/24 09:10 Resp 16 02/08/24 00:21 BP 117/66 02/08/24 09:10 O2 Del Method Room Air 02/08/24 00:21 Documenting provider has reviewed patient's vital signs: yes Common normals: no apparent distress and oriented x3 General appearance: cooperative and comfortable HENMT Common normals: normocephalic Eye Common normals: EOMs intact bilaterally General eye: normal appearance of both eyes Neck & C-Spine Common normals: full ROM and no lymphadenopathy General: normal visual inspection Lymph Lymphatic: no lymphadenopathy noted Chest Common normals: inspection of chest normal Respiratory Common normals: normal respiratory effort and no retractions Effort & inspection: able to speak in complete sentences Cardio Common normals: regular rate and regular rhythm Rate: regular rate Rhythm: regular rhythm GI Common normals: Normal to inspection, nondistended, normoactive bowel sounds present Auscultation: normoactive bowel sounds Palpation: soft Common normals: no CVA tenderness Back & Pelvis Common normals: no CVA tenderness Pelvis: other (patient c/o hemorrhoid pain ) Extremity Common normals: normal to inspection Neuro Common normals: oriented x3 Sensorium/orientation: awake, alert, oriented to person, oriented to place and oriented to time Psych Common normals: mental status grossly normal, thought process normal, cooperative, affect normal, speech normal, activity/motor behavior normal, denies hallucinations, denies homicidal ideation and denies suicidal ideation OB - PN: A/P Plan - Vaginal Delivery day: 2 Plan: discharge home Time Spent with Patient Time: Total time spent is greater than 50% in coordination of care (as documented) at patient's floor/unit and/or counseling patient: Total time spent with greater than 50% in coordination of care (as documented) at patient's floor/unit and/or counseling patient: less than 15 minutes
== END 2024-02-08 13:32 | disposition home or self-care (01) | DRG 560 ==
PROVIDERS: Admitting Provider Obstetrics & Gynecology; PCP Nurse Practitioner Family; Visit Provider Obstetrics & Gynecology
DX: O43.113 Circumvallate placenta, third trimester (principal); O69.89X0 Labor and delivery complicated by other cord complications, not applicable or unspecified; O70.0 First degree perineal laceration during delivery; Z3A.37 37 weeks gestation of pregnancy; Z37.0 Single live birth; O26.893 Other specified pregnancy related conditions, third trimester; Z67.41 Type O blood, Rh negative
CPT/HCPCS: 36415; 59050; 59410; 76818; 76820; 80307; 85025; 85027; 85461; 86850; 86900; 86901; 96365; 96366; 96372; 96375; J2300; J2791

== ENCOUNTER 2024-03-01 07:32 | Emergency (ER) | payer OTHER, SELFPAY ==
[2024-03-01 07:36] VITALS: BP 145/96; PULSE 62; TEMP 36.5; O2SAT 97; BMI 26.6
--- OUTSIDE RECORDS SUMMARY | 2024-03-01 07:38 | XMS_ITS | CCD ---
Author Organization [facility] Care Team Providers Care Environmental Department Manager Name Role Phone Farrah Garcia Primary Care Provider [phone] VIBHA JOHNSON Attending Unavailable VIBHA JOHNSON Referring [...] Repository (1 source) [facility] Drug Allergy [address] 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] Onset: 02-05-2022 Episodic Other [...] WITH AUTO DIFFon BASOPHILS ABSOLUTE AUTO 0.1 [facility] Basophils/100 WBC (Bld) 0.7 % 0.2 - 2.0 % [facility] Eosinophils/100 WBC (Bld) 2.6 % 0.9 - 7.0 % [facility] Erythrocyte distribution width (RBC) [Ratio] 13.4 % 11.0 - 15.0 % [facility] Hematocrit (Bld) [Volume fraction] 39.0 % 36.0 - 48.0 % [facility] Hemoglobin (Bld) [Mass/Vol] 12.8 g/dL 12.0 - 16.0 g/dL [facility] IMMATURE GRANULOCYTES ABS AUTO 0.01 [facility] Immature granulocytes/100 WBC (Bld) 0.1 % 0.0 - 0.5 % [facility] LYMPHOCYTES ABSOLUTE AUTO 2.2 [facility] Lymphocytes/100 WBC (Bld) 26.1 % 20.5 - 60.0 % [facility] MCH (RBC) [Entitic mass] 28.6 pg 26.7 - 34.0 pg [facility] MCHC (RBC) [Mass/Vol] 32.8 g/dL 29.9 - 35.2 g/dL [facility] MCV (RBC) [Entitic vol] 87.2 fL 81.0 - 99.0 fL [facility] MONOCYTES ABSOLUTE AUTO 0.5 [facility] Monocytes/100 WBC (Bld) 5.7 % 1.7 - 12.0 % [facility] NEUTROPHILS ABSOLUTE AUTO 5.5 [facility] Neutrophils/100 WBC (Bld) 64.8 % 43.0 - 75.0 % [facility] Platelet mean volume (Bld) [Entitic vol] 10.1 fL 9.5 - 13.5 fL [facility] TBH EO # 0.2 [facility] PLT 340 [facility] RBC 4.47 [facility] WBC 8.4 [facility] HCG ( test) Ql (U)o n 07-19-2023 Interpretation and review of laboratory results Abnormal [facility] Preg Test, Ur Positive [facility] Urinalysis macro (dipstick) panel (U)on 07-19-2023 Bilirubin, UA Negative Negative - 4(70) +++ mg/dL [facility] Blood, UA Positive Negative - 50 Anselmo/mcL [facility] Comment on above: moderate Clarity, UA Clear [facility] Color, UA [place] [facility] Glucose, UA Negative Negative - 1999(110) ++++ mg/dL [facility] Interpretation and review of laboratory results Abnormal [facility] Ketones, UA Positive Negative - 160(16) ++++ mg/dL [facility] Comment on above: trace Leukocytes, UA Positive Negative - 500+++ Monik/mcL [facility] Comment on above: small Nitrite, UA Negative Negative - Positive [facility] pH, UA 6.0 5 - 9 [facility] Protein, UA Positive Negative - 1999(20) ++++ mg/dL [facility] Comment on above: 30 Spec Grav, UA 1.030 1 - 1.03 [facility] Urobilinogen, UA 1.0 0.2 - 12 mg/dL [facility] In office Testingon 09-07-19 23 In office Testing [id number] 1.00CD:127 Normal [facility] CBC AUTO DIFFon 07-30-2022 BASO # 0.1 103/ul Normal 0.0-0.[address] [facility] Comment on above: Performed By: #### U RCX #### [facility] [address] [address] [address] Caitlin Martinez Basophils/100 WBC (Bld) 1.1 % Normal 0.2-2.[address] [facility] Comment on above: Performed By: #### U RCX #### [facility] [address] [place] [address] Dr. Caitlin Martinez EO # 0.3 103/ul Normal 0.0-0.[address] [facility] Comment on above: Performed By: #### U RCX #### [facility] [address] [address] [address] Caitlin Martinez Eosinophils/100 WBC (Bld) 4.7 % Normal 0.9-7.[address] [facility] Comment on above: Performed By: #### U RCX #### [facility] [address] [place] [address] Dr. Caitlin Martinez Erythrocyte distribution width (RBC) [Ratio] 14.7 % Normal 11.0-15.[address] [facility] Comment on above: Performed By: #### U RCX #### [facility] [address] [place] [address] Dr. Caitlin Martinez Hematocrit (Bld) [Volume fraction] 39.3 % Normal 36.0-48.[address] [facility] Comment on above: Performed By: #### U RCX #### [facility] [address] [place] [address] Dr. Caitlin Martinez Hemoglobin (Bld) [Mass/Vol] 12.7 g/dL Normal 12.0-16.[address] [facility] Comment on above: Performed By: #### U RCX #### [facility] [address] [address] [address] Caitlin Martinez IG # 0.02 10e3/ul Normal 0.00-0.[address] [facility] Comment on above: Performed By: #### U RCX #### [facility] [address] [address] [address] Caitlin Martinez IG % 0.3 % Normal 0.0-0.5 [facility] Comment on above: Performed By: #### U RCX #### [facility] [address] [address] [address] Caitlin Martinez LYMPH # 2.5 103/ul Normal 1.2-3.8 [facility] Comment on above: Performed By: #### U RCX #### [facility] [address] [place] [address] Dr. Caitlin Martinez Lymphocytes/100 WBC (Bld) 34.5 % Normal 20.5-60.[address] [facility] Comment on above: Performed By: #### U RCX #### [facility] [address] [place] [address] Dr. Caitlin Martinez MANUAL DIFF REQ NO Normal [facility] Comment on above: Performed By: #### U RCX #### [facility] [address] [place] [address] Dr. Caitlin Martinez MCH (RBC) [Entitic mass] 27.3 pg Normal 26.7-34.[address] [facility] Comment on above: Performed By: #### U RCX #### [facility] [address] [place] [address] Dr. Caitlin Martinez MCHC (RBC) [Mass/Vol] 32.3 g/dL Normal 29.9-35.2 [facility] Comment on above: Performed By: #### U RCX #### [facility] [address] [place] [address] Dr. Caitlin Martinez MCV (RBC) [Entitic vol] 84.5 fL Normal 81.0-99.[address] [facility] Comment on above: Performed By: #### U RCX #### [facility] [address] [address] [address] Caitlin Martinez MONO # 0.5 103/ul Normal 0.3-0.8 [facility] Comment on above: Performed By: #### U RCX #### [facility] [address] [place] [address] Dr. Caitlin Martinez Monocytes/100 WBC (Bld) 7.3 % Normal 1.7-12.0 [facility] Comment on above: Performed By: #### U RCX #### [facility] [address] [place] [address] Dr. Caitlin Matrinez NEUT # 3.8 103/ul Normal 1.4-6.5 [facility] Comment on above: Performed By: #### U RCX #### [facility] [address] [place] [address] Dr. Caitlin Martinez Neutrophils/100 WBC (Bld) 52.1 % Normal 43.0-75.0 [facility] Comment on above: Performed By: #### U RCX #### [facility] [address] [place] [address] Dr. Caitlin Martinez Platelet mean volume (Bld) [Entitic vol] 9.0 fL Critically low 9.5-13.5 [facility] Comment on above: Performed By: #### U RCX #### [facility] [address] [place] [address] Dr. Caitlin Martinez PLT 368 103/ul Normal 150-450 [facility] Comment on above: Performed By: #### U RCX #### [facility] [address] [place] [address] Dr. Caitlin Martinez RBC 4.65 106/ul Normal 4.20-5.40 [facility] Comment on above: Performed By: #### U RCX #### [facility] [address] [place] [address] Dr. Caitlin Martinez WBC 7.2 103/ul Normal 4.0-11.0 [facility] Comment on above: Performed By: #### U RCX #### [facility] [address] [place] [address] Dr. Caitlin Martinez IRONon 07-30-2022 Iron [Mass/Vol] 43.0 ug/dL Critically low 50.0-170.0 [facility] Comment on above: Performed By: #### U RCX #### [facility] [address] [address] [address] Caitlin Martinez PAP ACOG PANEL 2: 22 to 30on 07-30-2022 . . Normal [facility] Comment on above: Performed By: #### U RCX #### [facility] [address] [address] [address] Caitlin Martinez Age Gdln ACOG Testing - [facility] Comment on above: Performed By: #### U RCX #### [facility] [address] [place] [address] Dr. Caitlin Martinez DIAGNOSIS: Comment [facility] Comment on above: Result Comment: NEGA TIVE FOR INTRAEPITHELIAL LESION OR MALIGNANCY. Performed By: #### U RCX #### [facility] [address] [place] [address] Dr. Caitlin Martinez Methodology: Comment [facility] Comment on above: Result Comment: This liquid based ThinPrep(R) pap test was screened with the use of an image guided system. Performed By: #### U RCX #### [facility] [address] [place] [address] Dr. Caitlin Martinez Note: Comment [facility] Comment on above: Result Comment: The Pap smear is a screening test designed to aid in the detection of premalignant and malignant conditions of the uterine cervix. It is not a diagnostic procedure and should not be used as the sole means of detecting cervical cancer. Both false-positive and false-negative reports do occur. . Performed By: #### U RCX #### [facility] [address] [address] [address] Caitlin Martinez Performed by: Comment Normal [facility] Comment on above: Result Comment: Bhavna Cormier, Warble Saw Operator (ASCP) Performed By: #### U RCX #### [facility] [address] [address] [address] Caitlin Martinez Reflex Criteria: Comment Normal [facility] Comment on above: Result Comment: The HPV DNA reflex criteria were not met with this specimen result therefore, no HPV testing was performed. . Performed By: #### U RCX #### [facility] [address] [place] [address] Dr. Caitlin Martinez Specimen adequacy: Comment Normal [facility] Comment on above: Result Comment: Sati sfactory for evaluation. Endocervical and/or squamous metaplastic cells (endocervical component) are present. Performed By: #### U RCX #### [facility] [address] [place] [address] Dr. Caitlin Martinez INSULINon 04-19-2022 Insulin 9.1 uIU/mL Normal 2.6-24.[address] [facility] Comment on above: Performed By: #### I HORACIO #### [facility] [address] [place] [address] Dr. Caitlin Martinez CBC AUTO DIFFon 04-18-2022 BASO # 0.1 103/ul Normal 0.0-0.[address] [facility] Comment on above: Performed By: #### U RCX #### [facility] [address] [place] [address] Dr. Caitlin Martinez Basophils/100 WBC (Bld) 1.0 % Normal 0.2-2.[address] [facility] Comment on above: Performed By: #### U RCX #### [facility] [address] [place] [address] Dr. Caitlin Martinez EO # 0.3 103/ul Normal 0.0-0.[address] [facility] Comment on above: Performed By: #### U RCX #### [facility] [address] [place] [address] Dr. Caitlin Martinez Eosinophils/100 WBC (Bld) 4.1 % Normal 0.9-7.[address] [facility] Comment on above: Performed By: #### U RCX #### [facility] [address] [place] [address] Dr. Caitlin Martinez Erythrocyte distribution width (RBC) [Ratio] 16.0 % Critically high 11.0-15.[address] [facility] Comment on above: Performed By: #### U RCX #### [facility] [address] [place] [address] Dr. Caitlin Martinez Hematocrit (Bld) [Volume fraction] 35.7 % Critically low 36.0-48.[address] [facility] Comment on above: Performed By: #### U RCX #### [facility] [address] [place] [address] Dr. Caitlin Martinez Hemoglobin (Bld) [Mass/Vol] 10.9 g/dL Critically low 12.0-16.[address] [facility] Comment on above: Performed By: #### U RCX #### [facility] [address] [place] [address] Dr. Caitlin Martinez IG # 0.07 10e3/ul Critically high 0.00-0.03 [facility] Comment on above: Performed By: #### U RCX #### [facility] [address] [place] [address] Dr. Caitlin Martinez IG % 1.0 % Critically high 0.0-0.5 [facility] Comment on above: Performed By: #### U RCX #### [facility] [address] [place] [address] Dr. Caitlin Martinez LYMPH # 2.3 103/ul Normal 1.2-3.[address] [facility] Comment on above: Performed By: #### U RCX #### [facility] [address] [place] [address] Dr. Caitlin Martinez Lymphocytes/100 WBC (Bld) 31.4 % Normal 20.5-60.[address] [facility] Comment on above: Performed By: #### U RCX #### [facility] [address] [place] [address] Dr. Caitlin Martinez MANUAL DIFF REQ NO Normal [facility] Comment on above: Performed By: #### U RCX #### [facility] [address] [place] [address] Dr. Caitlin Martinez MCH (RBC) [Entitic mass] 24.8 pg Critically low 26.7-34.[address] [facility] Comment on above: Performed By: #### U RCX #### [facility] [address] [place] [address] Dr. Caitlin Martinez MCHC (RBC) [Mass/Vol] 30.5 g/dL Normal 29.9-35.[address] [facility] Comment on above: Performed By: #### U RCX #### [facility] [address] [place] [address] Dr. Caitlin Martinez MCV (RBC) [Entitic vol] 81.1 fL Normal 81.0-99.0 [facility] Comment on above: Performed By: #### U RCX #### [facility] [address] [place] [address] Dr. Caitlin Martinez MONO # 0.5 103/ul Normal 0.3-0.[address] [facility] Comment on above: Performed By: #### U RCX #### [facility] [address] [place] [address] Dr. Caitlin Martinez Monocytes/100 WBC (Bld) 6.6 % Normal 1.7-12.[address] [facility] Comment on above: Performed By: #### U RCX #### [facility] [address] [place] [address] Dr. Caitlin Martinez NEUT # 4.1 103/ul Normal 1.4-6.[address] [facility] Comment on above: Performed By: #### U RCX #### [facility] [address] [place] [address] Dr. Caitlin Martinez Neutrophils/100 WBC (Bld) 55.9 % Normal 43.0-75.0 [facility] Comment on above: Performed By: #### U RCX #### [facility] [address] [place] [address] Dr. Caitlin Martinez Platelet mean volume (Bld) [Entitic vol] 9.4 fL Critically low 9.5-13.[address] [facility] Comment on above: Performed By: #### U RCX #### [facility] [address] [place] [address] Dr. Caitlin Martinez PLT 369 103/ul Normal 150-[address] [facility] Comment on above: Performed By: #### U RCX #### [facility] [address] [place] [address] Dr. Caitlin Martinez RBC 4.40 106/ul Normal 4.20-5.[address] [facility] Comment on above: Performed By: #### U RCX #### [facility] [address] [address] [address] Caitlin Martinez WBC 7.3 103/ul Normal 4.0-11.[address] [facility] Comment on above: Performed By: #### U RCX #### [facility] [address] [place] [address] Dr. Caitlin Martinez FREE THYROXINE INDEX T7on FTI 2.20 Normal 1.30-4.[address] [facility] Comment on above: Performed By: #### I HORACIO #### [facility] [address] [place] [address] Dr. Caitlin Martinez T3U 29.0 % Critically low 30.0-39.0 [facility] Comment on above: Performed By: #### I HORACIO #### [facility] [address] [place] [address] Dr. Caitlin Martinez T4 [Mass/Vol] 7.60 ug/dL Normal 4.80-13.90 [facility] Comment on above: Performed By: #### I HORACIO #### [facility] [address] [place] [address] Dr. Caitlin Martinez GLYCOHEMOGLOBIN A1Con 2021 ADA RECOMMENDATION SEE BELOW Normal [facility] Comment on above: Result Comment: ADA RECOMMENDED LIMIT 4.0 - 6.0 ADA THERAPEUTIC TARGET < 7.0 ACTION SUGGESTED > 7.0 Performed By: #### U RCX #### [facility] [address] [place] [address] Dr. Caitlin Martinez Glucose [Mass/Vol] 97 mg/dL Normal [facility] Comment on above: Performed By: #### U RCX #### [facility] [address] [place] [address] Dr. Caitlin Martinez HbA1c (Bld) [Mass fraction] 5.0 % Normal 4.5-6.[address] [facility] Comment on above: Performed By: #### U RCX #### [facility] [address] [address] [address] Caitlin Martinez IRONon 04-18-2022 Iron [Mass/Vol] 35.0 ug/dL Critically low 50.0-170.0 [facility] Comment on above: Performed By: #### I HORACIO #### [facility] [address] [place] [address] Dr. Caitlin Martinez LIPID PROFILEon 04-18-2022 CHOL-HDL RATIO NORM SEE BELOW Normal [facility] Comment on above: Result Comment: 3.3 - 4.4 LOW RISK 4.4 - 7.1 AVERAGE RISK 7.1 - 11.0 MODERATE RISK >11.0 HIGH RISK Performed By: #### I HORACIO #### [facility] [address] [place] [address] Dr. Caitlin Martinez Cholesterol [Mass/Vol] 221 mg/dL Critically high <=[address] [facility] Comment on above: Performed By: #### I HORACIO #### [facility] [address] [place] [address] Dr. Caitlin Martinez Cholesterol in HDL [Mass/Vol] 67 mg/dL Critically high 40-[address] [facility] Comment on above: Performed By: #### I HORACIO #### [facility] [address] [address] [address] Caitlin Martinez Cholesterol in LDL [Mass/Vol] 142.4 mg/dL Normal [facility] Comment on above: Performed By: #### I HORACIO #### [facility] [address] [address] [address] Caitlin Martinez Cholesterol.total/Cho lesterol in HDL [Mass ratio] 3.3 {ratio} Normal [facility] Comment on above: Performed By: #### I HORACIO #### [facility] [address] [place] [address] Dr. Caitlin Martinez HDL NORMAL > or = 60 mg/dl - LO W CARDIOVASCULAR RISK <40 mg/dl - HIGH CARDIOVASCULAR RISK Normal [facility] Comment on above: Performed By: #### I HORACIO #### [facility] [address] [address] [address] Caitlin Martinez LDL CALC NORMAL SEE BELOW Normal [facility] Comment on above: Result Comment: <100 mg/dl OPTIMAL 100 - 129 mg/dl NEAR OR ABOVE OPTIMAL 130 - 159 mg/dl BORDERLINE HIGH 160 - 189 mg/dl HIGH >190 mg/dl VERY HIGH Performed By: #### I HORACIO #### [facility] [address] [place] [address] Dr. Caitlin Martinez Triglyceride [Mass/Vol] 58 mg/dL Normal <=[address] [facility] Comment on above: Performed By: #### I HORACIO #### [facility] [address] [place] [address] Dr. Caitlin Martinez VLDL CALC 11.6 mg/dL Normal [facility] Comment on above: Performed By: #### I HORACIO #### [facility] [address] [place] [address] Dr. Caitlin Martinez PROF 14(COMP METB)on 022 Albumin [Mass/Vol] 3.8 g/dL Normal 3.4-5.0 [facility] Comment on above: Performed By: #### I HORACIO #### [facility] [address] [place] [address] Dr. Caitlin Martinez Albumin/Globulin [Mass ratio] 1.1 {ratio} Normal [facility] Comment on above: Performed By: #### I HORACIO #### [facility] [address] [place] [address] Dr. Caitlin Martinez ALP [Catalytic activity/Vol] 132 U/L Critically high 46-116 [facility] Comment on above: Performed By: #### I HORACIO #### [facility] [address] [place] [address] Dr. Caitlin Martinez ALT [Catalytic activity/Vol] 55 U/L Normal 14-[address] [facility] Comment on above: Performed By: #### I HORACIO #### [facility] [address] [place] [address] Dr. Caitlin Martinez Anion gap [Moles/Vol] 12.6 mmol/L Normal [facility] Comment on above: Performed By: #### I HORACIO #### [facility] [address] [place] [address] Dr. Caitlin Martinez AST [Catalytic activity/Vol] 27 U/L Normal 15-[address] [facility] Comment on above: Performed By: #### I HORACIO #### [facility] [address] [place] [address] Dr. Caitlin Martinez Bilirubin [Mass/Vol] 0.6 mg/dL Normal 0.2-1.[address] [facility] Comment on above: Performed By: #### I HORACIO #### [facility] [address] [place] [address] Dr. Caitlin Martinez Calcium [Mass/Vol] 9.1 mg/dL Normal 8.5-10.1 [facility] Comment on above: Performed By: #### I HORACIO #### [facility] [address] [place] [address] Dr. Caitlin Martinez Chloride [Moles/Vol] 106 mmol/L Normal 98-[address] [facility] Comment on above: Performed By: #### I HORACIO #### [facility] [address] [place] [address] Dr. Caitlin Martinez CO2 [Moles/Vol] 26.5 mmol/L Normal 21.0-32.0 [facility] Comment on above: Performed By: #### I HORACIO #### [facility] [address] [place] [address] Dr. Caitlin Martinez Creatinine [Mass/Vol] 0.63 mg/dL Normal 0.55-1.[address] [facility] Comment on above: Performed By: #### I HORACIO #### [facility] [address] [place] [address] Dr. Caitlin Martinez EGFR-AF BELGIAN >60 Normal >=60 [facility] Comment on above: Performed By: #### I HORACIO #### [facility] [address] [place] [address] Dr. Caitlin Martinez EGFR-NON AF BELGIAN >60 Normal >=[address] [facility] Comment on above: Performed By: #### I HORACIO #### [facility] [address] [address] [address] Caitlin Martinez Globulin (S) [Mass/Vol] 3.6 g/dL Normal [facility] Comment on above: Performed By: #### I HORACIO #### [facility] [address] [id number] Dr. Caitlin Martinez Glucose [Mass/Vol] 98 mg/dL Normal 74-106 [facility] Comment on above: Performed By: #### I HORACIO #### [facility] [address] [address] [address] Caitlin Martinez Potassium [Moles/Vol] 4.1 mmol/L Normal 3.5-5.[address] [facility] Comment on above: Performed By: #### I HORACIO #### [facility] [address] [place] [address] Dr. Caitlin Martinez Protein [Mass/Vol] 7.4 g/dL Normal 6.4-8.2 [facility] Comment on above: Performed By: #### I HORACIO #### [facility] [address] [place] [address] Dr. Caitlin Martienz Sodium [Moles/Vol] 141 mmol/L Normal 136-145 [facility] Comment on above: Performed By: #### I HORACIO #### [facility] [address] [place] [address] Dr. Caitlin Martinez Urea nitrogen [Mass/Vol] 9.0 mg/dL Normal 7.0-18.[address] [facility] Comment on above: Performed By: #### I HORACIO #### [facility] [address] [place] [address] Dr. Caitlin Martinez Urea nitrogen/Creatinine [Mass ratio] 14.3 mg/mg Normal [facility] Comment on above: Performed By: #### I HORACIO #### [facility] [address] [place] [address] Dr. Caitlin Martinez TSHon 04-18-2022 TSH 1.349 uIU/mL Normal 0.358-3.740 [facility] Comment on above: Performed By: #### I HORACIO #### [facility] [address] [place] [address] Dr. Caitlin Martinez ANTIBODY ID PANELon 02-15-20 22 ANTIBODY ID PANEL Antibody ID Anti-D Blood Bank Notes most likely due to Rhogam given on 12/01/21 Normal [facility] Comment on above: Performed By: #### D IRCMB, ABID #### [facility] [address] [place] [address] Dr. Caitlin Martinez CTA CHEST WO W [...] GAGANDEEP WHEELER Date: 2022-02-10 22:55 Normal [facility] CBC AUTO DIFFon 02-10-2022 BASO # 0.1 103/ul Normal 0.0-0.[address] [facility] Comment on above: Performed By: #### C BC #### [facility] [address] [place] [address] Dr. Caitlin Martinez Basophils/100 WBC (Bld) 0.4 % Normal 0.2-2.[address] [facility] Comment on above: Performed By: #### C BC #### [facility] [address] [place] [address] Dr. Caitlin Martinez EO # 0.5 103/ul Normal 0.0-0.[address] [facility] Comment on above: Performed By: #### C BC #### [facility] [address] [address] [address] Caitlin Martinez Eosinophils/100 WBC (Bld) 4.2 % Normal 0.9-7.[address] [facility] Comment on above: Performed By: #### C BC #### [facility] [address] [address] [address] Caitlin Martinez Erythrocyte distribution width (RBC) [Ratio] 14.7 % Normal 11.0-15.[address] [facility] Comment on above: Performed By: #### C BC #### [facility] [address] [place] [address] Dr. Caitlin Martinez Hematocrit (Bld) [Volume fraction] 31.1 % Critically low 36.0-48.[address] [facility] Comment on above: Performed By: #### C BC #### [facility] [address] [place] [address] Dr. Caitlin Martinez Hemoglobin (Bld) [Mass/Vol] 9.6 g/dL Critically low 12.0-16.[address] [facility] Comment on above: Performed By: #### C BC #### [facility] [address] [place] [address] Dr. Caitlin Martinez IG # 0.28 10e3/ul Critically high 0.00-0.03 [facility] Comment on above: Performed By: #### C BC #### [facility] [address] [place] [address] Dr. Caitlin Martinez IG % 2.3 % Critically high 0.0-0.5 [facility] Comment on above: Performed By: #### C BC #### [facility] [address] [place] [address] Dr. Caitlin Martinez LYMPH # 3.3 103/ul Normal 1.2-3.8 [facility] Comment on above: Performed By: #### C BC #### [facility] [address] [place] [address] Dr. Caitlin Martinez Lymphocytes/100 WBC (Bld) 26.9 % Normal 20.5-60.[address] [facility] Comment on above: Performed By: #### C BC #### [facility] [address] [place] [address] Dr. Caitlin Martinez MANUAL DIFF REQ NO Normal [facility] Comment on above: Performed By: #### C BC #### [facility] [address] [place] [address] Dr. Caitlin Martinez MCH (RBC) [Entitic mass] 26.2 pg Critically low 26.7-34.[address] [facility] Comment on above: Performed By: #### C BC #### [facility] [address] [place] [address] Dr. Caitlin Martinez MCHC (RBC) [Mass/Vol] 30.9 g/dL Normal 29.9-35.[address] [facility] Comment on above: Performed By: #### C BC #### [facility] [address] [place] [address] Dr. Caitlin Martinez MCV (RBC) [Entitic vol] 84.7 fL Normal 81.0-99.[address] [facility] Comment on above: Performed By: #### C BC #### [facility] [address] [place] [address] Dr. Caitlin Martinez MONO # 1.1 103/ul Critically high 0.3-0.8 [facility] Comment on above: Performed By: #### C BC #### [facility] [address] [place] [address] Dr. Caitlin Martinez Monocytes/100 WBC (Bld) 8.7 % Normal 1.7-12.0 [facility] Comment on above: Performed By: #### C BC #### [facility] [address] [place] [address] Dr. Caitlin Martinez NEUT # 7.0 103/ul Critically high 1.4-6.5 [facility] Comment on above: Performed By: #### C BC #### [facility] [address] [place] [address] Dr. Caitlin Martinez Neutrophils/100 WBC (Bld) 57.5 % Normal 43.0-75.0 [facility] Comment on above: Performed By: #### C BC #### [facility] [address] [address] [address] Caitlin Martinez Platelet mean volume (Bld) [Entitic vol] 9.1 fL Critically low 9.5-13.5 [facility] Comment on above: Performed By: #### C BC #### [facility] [address] [address] [address] Caitlin Martinez PLT 437 103/ul Normal 150-450 [facility] Comment on above: Performed By: #### C BC #### [facility] [address] [address] [address] Caitlin Martinez RBC 3.67 106/ul Critically low 4.20-5.40 [facility] Comment on above: Performed By: #### C BC #### [facility] [address] [address] [address] Caitlin Martinez WBC 12.3 103/ul Critically high 4.0-11.0 [facility] Comment on above: Performed By: #### C BC #### [facility] [address] [address] [address] Caitlin Martinez Covid-19 PCR ([facility])on 01-16 SARS-CoV-2 (COVID-19) RNA JONATAN+probe Ql (Unsp spec) Not detected Normal NOT DETECTED [facility] Comment on above: Result Comment: [...] for this test is supported by the [employer] of Health and Human Service's declaration that [...] used). Performed By: #### C VDTBH #### [facility] [address] [place] [address] Dr. Caitlin Martinez PROF 14(COMP METB)on 022 Albumin [Mass/Vol] 2.1 g/dL Critically low 3.4-5.0 [facility] Comment on above: Performed By: #### U RCX #### [facility] [address] [place] [address] Dr. Caitlin Martinez Albumin/Globulin [Mass ratio] 0.5 {ratio} Normal [facility] Comment on above: Performed By: #### U RCX #### [facility] [address] [place] [address] Dr. Caitlin Martinez ALP [Catalytic activity/Vol] 202 U/L Critically high 46-[address] [facility] Comment on above: Performed By: #### U RCX #### [facility] [address] [place] [address] Dr. Caitlin Martinez ALT [Catalytic activity/Vol] 20 U/L Normal 14-[address] [facility] Comment on above: Performed By: #### U RCX #### [facility] [address] [place] [address] Dr. Caitlin Martinez Anion gap [Moles/Vol] 11.6 mmol/L Normal [facility] Comment on above: Performed By: #### U RCX #### [facility] [address] [place] [address] Dr. Caitlin Martinez AST [Catalytic activity/Vol] 17 U/L Normal 15-[address] [facility] Comment on above: Performed By: #### U RCX #### [facility] [address] [place] [address] Dr. Caitlin Martinez Bilirubin [Mass/Vol] 0.3 mg/dL Normal 0.2-1.[address] [facility] Comment on above: Performed By: #### U RCX #### [facility] [address] [place] [address] Dr. Caitlin Martinez Calcium [Mass/Vol] 9.2 mg/dL Normal 8.5-10.1 [facility] Comment on above: Performed By: #### U RCX #### [facility] [address] [address] [address] Caitlin Martinez Chloride [Moles/Vol] 104 mmol/L Normal 98-[address] [facility] Comment on above: Performed By: #### U RCX #### [facility] [address] [address] [address] Caitlin Martinez CO2 [Moles/Vol] 26.9 mmol/L Normal 21.0-32.0 [facility] Comment on above: Performed By: #### U RCX #### [facility] [address] [address] [address] Caitlin Martinez Creatinine [Mass/Vol] 0.56 mg/dL Normal 0.55-1.[address] [facility] Comment on above: Performed By: #### U RCX #### [facility] [address] [place] [address] Dr. Caitlin Martinez EGFR-AF BELGIAN >60 Normal >=60 [facility] Comment on above: Performed By: #### U RCX #### [facility] [address] [address] [address] Caitlin Martinez EGFR-NON AF BELGIAN >60 Normal >=[address] [facility] Comment on above: Performed By: #### U RCX #### [facility] [address] [place] [address] Dr. Caitlin Martinez Globulin (S) [Mass/Vol] 4.4 g/dL Normal [facility] Comment on above: Performed By: #### U RCX #### [facility] [address] [address] [address] Caitlin Martinez Glucose [Mass/Vol] 108 mg/dL Critically high 74-106 [facility] Comment on above: Performed By: #### U RCX #### [facility] [address] [address] [address] Caitlin Martinez Potassium [Moles/Vol] 3.5 mmol/L Normal 3.5-5.[address] [facility] Comment on above: Performed By: #### U RCX #### [facility] [address] [address] [address] Caitlin Martinez Protein [Mass/Vol] 6.5 g/dL Normal 6.4-8.2 [facility] Comment on above: Performed By: #### U RCX #### [facility] [address] [address] [address] Caitlin Martinez Sodium [Moles/Vol] 139 mmol/L Normal 136-145 [facility] Comment on above: Performed By: #### U RCX #### [facility] [address] [address] [address] Caitlin Martinez Urea nitrogen [Mass/Vol] 7.0 mg/dL Normal 7.0-18.[address] [facility] Comment on above: Performed By: #### U RCX #### [facility] [address] [place] [address] Dr. Caitlin Martinez Urea nitrogen/Creatinine [Mass ratio] 12.5 mg/mg Normal [facility] Comment on above: Performed By: #### U RCX #### [facility] [address] [place] [address] Dr. Caitlin Martinez TROPONIN, HIGH SENSITIVITYon 02-10-2022 HSTROP <4.0 Normal 4.0-51.[address] [facility] Comment on above: Result Comment: CUT- OFF POINTS HAVE BEEN ESTABLISHED BASED ON THE FOURTH UNIVERSAL DEFINITIONS OF MYOCARDIAL INFARCTION. THE UPPER REFERENCE LIMIT (URL) OF TROPONIN, DEFINED THE 99TH PERCENTILE OF cTnI DISTRIBUTION IN A REFERENCE POPULATION, HAS BEEN CONFIRMED THE DECISION THRESHOLD FOR AK DIAGNOSIS. Performed By: #### U RCX #### [facility] [address] [place] [address] Dr. Caitlin Martinez CBC AUTO DIFFon 02-09-2022 BASO # 0.1 103/ul Normal 0.0-0.[address] [facility] Comment on above: Performed By: #### U RCX #### [facility] [address] [place] [address] Dr. Caitlin Martinez Basophils/100 WBC (Bld) 0.6 % Normal 0.2-2.[address] [facility] Comment on above: Performed By: #### U RCX #### [facility] [address] [address] [address] Caitlin Martinez EO # 0.3 103/ul Normal 0.0-0.[address] [facility] Comment on above: Performed By: #### U RCX #### [facility] [address] [address] [address] Caitlin Martinez Eosinophils/100 WBC (Bld) 2.3 % Normal 0.9-7.[address] [facility] Comment on above: Performed By: #### U RCX #### [facility] [address] [address] [address] Caitlin Martinez Erythrocyte distribution width (RBC) [Ratio] 14.6 % Normal 11.0-15.[address] [facility] Comment on above: Performed By: #### U RCX #### [facility] [address] [place] [address] Dr. Caitlin Martinez Hematocrit (Bld) [Volume fraction] 28.8 % Critically low 36.0-48.[address] [facility] Comment on above: Performed By: #### U RCX #### [facility] [address] [place] [address] Dr. Caitlin Martinez Hemoglobin (Bld) [Mass/Vol] 9.0 g/dL Critically low 12.0-16.[address] [facility] Comment on above: Performed By: #### U RCX #### [facility] [address] [address] [address] Caitlin Martinez IG # 0.20 10e3/ul Critically high 0.00-0.03 [facility] Comment on above: Performed By: #### U RCX #### [facility] [address] [address] [address] Caitlin Martinez IG % 1.5 % Critically high 0.0-0.5 [facility] Comment on above: Performed By: #### U RCX #### [facility] [address] [address] [address] Caitlin Martinez LYMPH # 3.0 103/ul Normal 1.2-3.8 [facility] Comment on above: Performed By: #### U RCX #### [facility] [address] [address] [address] Caitlin Martinez Lymphocytes/100 WBC (Bld) 22.2 % Normal 20.5-60.[address] [facility] Comment on above: Performed By: #### U RCX #### [facility] [address] [address] [address] Caitlin Martinez MANUAL DIFF REQ NO Normal [facility] Comment on above: Performed By: #### U RCX #### [facility] [address] [address] [address] Caitlin Martinez MCH (RBC) [Entitic mass] 26.2 pg Critically low 26.7-34.[address] [facility] Comment on above: Performed By: #### U RCX #### [facility] [address] [place] [address] Dr. Caitlin Martinez MCHC (RBC) [Mass/Vol] 31.3 g/dL Normal 29.9-35.[address] [facility] Comment on above: Performed By: #### U RCX #### [facility] [address] [address] [address] Caitlin Martinez MCV (RBC) [Entitic vol] 83.7 fL Normal 81.0-99.[address] [facility] Comment on above: Performed By: #### U RCX #### [facility] [address] [place] [address] Dr. Caitlin Martinez MONO # 1.3 103/ul Critically high 0.3-0.8 [facility] Comment on above: Performed By: #### U RCX #### [facility] [address] [address] [address] Caitlin Martinez Monocytes/100 WBC (Bld) 9.8 % Normal 1.7-12.[address] [facility] Comment on above: Performed By: #### U RCX #### [facility] [address] [address] [address] Caitlin Martinez NEUT # 8.5 103/ul Critically high 1.4-6.5 [facility] Comment on above: Performed By: #### U RCX #### [facility] [address] [address] [address] Caitlin Martinez Neutrophils/100 WBC (Bld) 63.6 % Normal 43.0-75.[address] [facility] Comment on above: Performed By: #### U RCX #### [facility] [address] [address] [address] Caitlin Martinez Platelet mean volume (Bld) [Entitic vol] 9.1 fL Critically low 9.5-13.5 [facility] Comment on above: Performed By: #### U RCX #### [facility] [address] [place] [address] Dr. Caitlin Martinez PLT 355 103/ul Normal 150-450 [facility] Comment on above: Performed By: #### U RCX #### [facility] [address] [place] [address] Dr. Caitlin Martinez RBC 3.44 106/ul Critically low 4.20-5.40 [facility] Comment on above: Performed By: #### U RCX #### [facility] [address] [place] [address] Dr. Caitlin Martinez WBC 13.3 103/ul Critically high 4.0-11.0 [facility] Comment on above: Performed By: #### U RCX #### [facility] [address] [place] [address] Dr. Caitlin Martinez SCREENon 02-09-2022 SCREEN Negative Normal [facility] Comment on above: Performed By: #### F ETSCRN #### [facility] [address] [place] [address] Dr. Caitlin Martinez CBC AUTO DIFFon 02-08-2022 BASO # 0.1 103/ul Normal 0.0-0.[address] [facility] Comment on above: Performed By: #### U RCX #### [facility] [address] [address] [address] Caitlin Martinez Basophils/100 WBC (Bld) 0.4 % Normal 0.2-2.[address] [facility] Comment on above: Performed By: #### U RCX #### [facility] [address] [place] [address] Dr. Caitlin Martinez EO # 0.3 103/ul Normal 0.0-0.[address] [facility] Comment on above: Performed By: #### U RCX #### [facility] [address] [place] [address] Dr. Caitlin Martinez Eosinophils/100 WBC (Bld) 2.6 % Normal 0.9-7.[address] [facility] Comment on above: Performed By: #### U RCX #### [facility] [address] [place] [address] Dr. Caitlin Martinez Erythrocyte distribution width (RBC) [Ratio] 14.7 % Normal 11.0-15.[address] [facility] Comment on above: Performed By: #### U RCX #### [facility] [address] [place] [address] Dr. Caitlin Martinez Hematocrit (Bld) [Volume fraction] 30.6 % Critically low 36.0-48.[address] [facility] Comment on above: Performed By: #### U RCX #### [facility] [address] [place] [address] Dr. Caitlin Martinez Hemoglobin (Bld) [Mass/Vol] 9.7 g/dL Critically low 12.0-16.[address] [facility] Comment on above: Performed By: #### U RCX #### [facility] [address] [place] [address] Dr. Caitlin Martinez IG # 0.15 10e3/ul Critically high 0.00-0.03 [facility] Comment on above: Performed By: #### U RCX #### [facility] [address] [place] [address] Dr. Caitlin Martinez IG % 1.3 % Critically high 0.0-0.5 [facility] Comment on above: Performed By: #### U RCX #### [facility] [address] [place] [address] Dr. Caitlin Martinez LYMPH # 2.8 103/ul Normal 1.2-3.[address] [facility] Comment on above: Performed By: #### U RCX #### [facility] [address] [place] [address] Dr. Caitlin Martinez Lymphocytes/100 WBC (Bld) 24.8 % Normal 20.5-60.[address] [facility] Comment on above: Performed By: #### U RCX #### [facility] [address] [place] [address] Dr. Caitlin Martinez MANUAL DIFF REQ NO Normal [facility] Comment on above: Performed By: #### U RCX #### [facility] [address] [place] [address] Dr. Caitlin Martinez MCH (RBC) [Entitic mass] 26.6 pg Critically low 26.7-34.[address] [facility] Comment on above: Performed By: #### U RCX #### [facility] [address] [place] [address] Dr. Caitlin Martinez MCHC (RBC) [Mass/Vol] 31.7 g/dL Normal 29.9-35.[address] [facility] Comment on above: Performed By: #### U RCX #### [facility] [address] [place] [address] Dr. Caitlin aMrtinez MCV (RBC) [Entitic vol] 83.8 fL Normal 81.0-99.[address] [facility] Comment on above: Performed By: #### U RCX #### [facility] [address] [place] [address] Dr. Caitlin Martinez MONO # 1.0 103/ul Critically high 0.3-0.8 [facility] Comment on above: Performed By: #### U RCX #### [facility] [address] [place] [address] Dr. Caitlin Martinez Monocytes/100 WBC (Bld) 8.7 % Normal 1.7-12.[address] [facility] Comment on above: Performed By: #### U RCX #### [facility] [address] [place] [address] Dr. Caitlin Martinez NEUT # 7.0 103/ul Critically high 1.4-6.5 [facility] Comment on above: Performed By: #### U RCX #### [facility] [address] [place] [address] Dr. Caitlin Martinez Neutrophils/100 WBC (Bld) 62.2 % Normal 43.0-75.[address] [facility] Comment on above: Performed By: #### U RCX #### [facility] [address] [place] [address] Dr. Caitlin Martinez Platelet mean volume (Bld) [Entitic vol] 9.0 fL Critically low 9.5-13.5 [facility] Comment on above: Performed By: #### U RCX #### [facility] [address] [place] [address] Dr. Caitlin Martinez PLT 373 103/ul Normal 150-450 [facility] Comment on above: Performed By: #### U RCX #### [facility] [address] [place] [address] Dr. Caitlin Martinez RBC 3.65 106/ul Critically low 4.20-5.40 [facility] Comment on above: Performed By: #### U RCX #### [facility] [address] [place] [address] Dr. Caitlin Martinez WBC 11.3 103/ul Critically high 4.0-11.0 [facility] Comment on above: Performed By: #### U RCX #### [facility] [address] [place] [address] Dr. Caitlin Martinez Covid-19 PCR ([facility])on 01-16 SARS-CoV-2 (COVID-19) RNA JONATAN+probe Ql (Unsp spec) Not detected Normal NOT DETECTED [facility] Comment on above: Result Comment: [...] for this test is supported by the [place] of Health and Human Service's declaration that [...] used). Performed By: #### C BC #### [facility] [address] [place] [address] Dr. Caitlin Martinez DIRECT COOMBSon 02-08-2022 DIRECT EDWINA Negative Normal [facility] Comment on above: Performed By: #### D IRCMB, ABID #### [facility] [address] [place] [address] Dr. Caitlin Martinez DRUG SCREEN RAPID (URINE)on 02-08-2022 AMP Negative Normal NEGATIVE [facility] Comment on above: Performed By: #### C BC #### [facility] [address] [place] [address] Dr. Caitlin Martinez BAR Negative Normal NEGATIVE [facility] Comment on above: Performed By: #### C BC #### [facility] [address] [place] [address] Dr. Caitlin Martinez BUP Negative Normal NEGATIVE [facility] Comment on above: Performed By: #### C BC #### [facility] [address] [place] [address] Dr. Caitlin Martinez BZO Negative Normal NEGATIVE [facility] Comment on above: Performed By: #### C BC #### [facility] [address] [place] [address] Dr. Caitlin Martinez JEANNA Negative Normal NEGATIVE [facility] Comment on above: Performed By: #### C BC #### [facility] [address] [place] [address] Dr. Caitlin Martinez CUT-OFFS SEE BELOW Normal [facility] Comment on above: Result Comment: [...] ng/mL Performed By: #### C BC #### [facility] [address] [place] [address] Dr. Caitlin Martinez DRUG CUT HEADER DRUG CLASS TEST SYSTEM CUT-OFF CONCENTRATIONS ARE FOLLOWS: Normal [facility] Comment on above: Performed By: #### C BC #### [facility] [address] [place] [address] Dr. Caitlin Martinez mAMP Negative Normal NEGATIVE [facility] Comment on above: Performed By: #### C BC #### [facility] [address] [place] [address] Dr. Caitlin Martinez MTD Negative Normal NEGATIVE [facility] Comment on above: Performed By: #### C BC #### [facility] [address] [place] [address] Dr. Caitlin Martinez OPI Negative Normal NEGATIVE [facility] Comment on above: Performed By: #### C BC #### [facility] [address] [place] [address] Dr. Caitlin Martinez OXY Negative Normal NEGATIVE [facility] Comment on above: Performed By: #### C BC #### [facility] [address] [place] [address] Dr. Caitlin Martinez PCP Negative Normal NEGATIVE [facility] Comment on above: Performed By: #### C BC #### [facility] [address] [place] [address] Dr. Caitlin Martinez PPX Negative Normal NEGATIVE [facility] Comment on above: Performed By: #### C BC #### [facility] [address] [place] [address] Dr. Caitlin Martinez TCA Negative Normal NEGATIVE [facility] Comment on above: Performed By: #### C BC #### [facility] [address] [address] [address] Caitlin Martinez THC Negative Normal NEGATIVE [facility] Comment on above: Performed By: #### C BC #### [facility] [address] [place] [address] Dr. Caitlin Martinez TYPE AND SCREENon 02-08-2022 TYPE AND SCREEN Negative Normal [facility] Comment on above: Performed By: #### I HORACIO #### [facility] [address] [place] [address] Dr. Caitlin Martinez US PREG BIOPHY W [...] DAVID BLACKMON Date: 2022-02-05 16:28 Normal [facility] AMNISUREon 01-25-2022 AMNISURE Negative Normal NEGATIVE [facility] Comment on above: Performed By: #### A MNI #### [facility] [address] [place] [address] Dr. Caitlin Martinez CULTURE URINEon 01-25-2022 CULTURE URINE Culture Observations : No growth Normal [facility] Comment on above: Performed By: #### U RCX #### [facility] [address] [place] [address] Dr. Caitlin Martinez UA (CLEAN/CATCH) INJECTION MOLDER/MICRO I F IND.on 01-25-2022 Bilirubin Ql (U) Negative Normal NEGATIVE [facility] Comment on above: Performed By: #### C VDTBH #### [facility] [address] [place] [address] Dr. Caitlin Martinez Clarity (U) SL CLOUDY Abnormal CLEAR [facility] Comment on above: Performed By: #### C VDTBH #### [facility] [address] [place] [address] Dr. Caitlin Martinez Color (U) LT. YELLOW Normal YELLOW [facility] Comment on above: Performed By: #### C VDTBH #### [facility] [address] [place] [address] Dr. Caitlin Martinez Glucose Ql (U) Negative Normal NEGATIVE [facility] Comment on above: Performed By: #### C VDTBH #### [facility] [address] [place] [address] Dr. Caitlin Martinez Hemoglobin Ql (U) TRACE-INTACT Abnormal NEGATIVE [facility] Comment on above: Performed By: #### C VDTBH #### [facility] [address] [place] [address] Dr. Caitlin Martinez Ketones Ql (U) Negative Normal NEGATIVE [facility] Comment on above: Performed By: #### C VDTBH #### [facility] [address] [place] [address] Dr. Caitlin Martinez LEUKOCYTES TRACE Abnormal NEGATIVE [facility] Comment on above: Performed By: #### C VDTBH #### [facility] [address] [place] [address] Dr. Caitlni Martinez Nitrite Ql (U) Negative Normal NEGATIVE [facility] Comment on above: Performed By: #### C VDTBH #### [facility] [address] [place] [address] Dr. Caitlin Martinez pH (U) 6.5 [pH] Normal 5-[address] [facility] Comment on above: Performed By: #### C VDTBH #### [facility] [address] [place] [address] Dr. Caitlin Martinez SPEC GRAVITY 1.020 Normal 1.005-<=1.025 [facility] Comment on above: Performed By: #### C VDTBH #### [facility] [address] [place] [address] Dr. Caitlin Martinez UA PROTEIN Negative Normal NEGATIVE/ TRACE [facility] Comment on above: Performed By: #### C VDTBH #### [facility] [address] [place] [address] Dr. Caitlin Martinez UR MICRO IND INDICATED Normal [facility] Comment on above: Performed By: #### C VDTBH #### [facility] [address] [place] [address] Dr. Caitlin Martinez Urobilinogen Qn (U) 0.2 {Barbara'U}/dL Normal 0.2 - 1. 0 [facility] Comment on above: Performed By: #### C VDTBH #### [facility] [address] [place] [address] Dr. Caitlin Martinez URINE MICROSCOPIC ONLYon BACTERIA MODERATE Abnormal NONE SEEN [facility] Comment on above: Performed By: #### C VDTBH #### [facility] [address] [place] [address] Dr. Caitlin Martinez Bacteria identified Cx Nom (U) INDICATED Normal [facility] Comment on above: Performed By: #### C VDTBH #### [facility] [address] [place] [address] Dr. Caitlin Martinez CAST NONE SEEN Normal NONE SEEN [facility] Comment on above: Performed By: #### C VDTBH #### [facility] [address] [place] [address] Dr. Caitlin Martinez Crystals LM Nom (Urine sed) NONE SEEN Normal NONE SEEN [facility] Comment on above: Performed By: #### C VDTBH #### [facility] [address] [place] [address] Dr. Caitlin Martinez Epithelial cells LM Ql (Urine sed) FEW Abnormal NONE SEEN /RARE [facility] Comment on above: Performed By: #### C VDTBH #### [facility] [address] [place] [address] Dr. Caitlin Martinez MUCOUS TRACE Abnormal NONE SEEN [facility] Comment on above: Performed By: #### C VDTBH #### [facility] [address] [place] [address] Dr. Caitlin Martinez RBC 2-5 Abnormal 0-[address] [facility] Comment on above: Performed By: #### C VDTBH #### [facility] [address] [place] [address] Dr. Caitlin Martinez WBC 0-2 Abnormal NONE SEEN [facility] Comment on above: Performed By: #### C VDTBH #### [facility] [address] [place] [address] Dr. Caitlin Martinez AMYLASEon 01-16-2022 Amylase [Catalytic activity/Vol] 49 U/L Normal 25-115 [facility] Comment on above: Performed By: #### C VDTBH #### [facility] [address] [place] [address] Dr. Caitlin Martinez BUNon 01-16-2022 Urea nitrogen [Mass/Vol] 3.0 mg/dL Critically low 7.0-18.[address] [facility] Comment on above: Performed By: #### C BC #### [facility] [address] [place] [address] Dr. Caitlin Martinez CBC AUTO DIFFon 01-16-2022 BASO # 0.1 103/ul Normal 0.0-0.[address] [facility] Comment on above: Performed By: #### U RCX #### [facility] [address] [place] [address] Dr. Caitlin Martinez Basophils/100 WBC (Bld) 0.6 % Normal 0.2-2.[address] [facility] Comment on above: Performed By: #### U RCX #### [facility] [address] [place] [address] Dr. Caitlin Martinez EO # 0.3 103/ul Normal 0.0-0.7 [facility] Comment on above: Performed By: #### U RCX #### [facility] [address] [place] [address] Dr. Caitlin Martinez Eosinophils/100 WBC (Bld) 2.6 % Normal 0.9-7.[address] [facility] Comment on above: Performed By: #### U RCX #### [facility] [address] [place] [address] Dr. Caitlin Martinez Erythrocyte distribution width (RBC) [Ratio] 14.4 % Normal 11.0-15.[address] [facility] Comment on above: Performed By: #### U RCX #### [facility] [address] [place] [address] Dr. Caitlin Martinez Hematocrit (Bld) [Volume fraction] 28.4 % Critically low 36.0-48.[address] [facility] Comment on above: Performed By: #### U RCX #### [facility] [address] [place] [address] Dr. Caitlin Martinez Hemoglobin (Bld) [Mass/Vol] 9.0 g/dL Critically low 12.0-16.[address] [facility] Comment on above: Performed By: #### U RCX #### [facility] [address] [place] [address] Dr. Caitlin Martinez IG # 0.11 10e3/ul Critically high 0.00-0.03 [facility] Comment on above: Performed By: #### U RCX #### [facility] [address] [place] [address] Dr. Caitlin Martinez IG % 1.1 % Critically high 0.0-0.5 [facility] Comment on above: Performed By: #### U RCX #### [facility] [address] [place] [address] Dr. Caitlin Martinez LYMPH # 2.2 103/ul Normal 1.2-3.[address] [facility] Comment on above: Performed By: #### U RCX #### [facility] [address] [place] [address] Dr. Caitlin Martinez Lymphocytes/100 WBC (Bld) 21.0 % Normal 20.5-60.[address] [facility] Comment on above: Performed By: #### U RCX #### [facility] [address] [place] [address] Dr. Caitlin Martinez MANUAL DIFF REQ NO Normal [facility] Comment on above: Performed By: #### U RCX #### [facility] [address] [place] [address] Dr. Caitlin Martinez MCH (RBC) [Entitic mass] 28.2 pg Normal 26.7-34.0 [facility] Comment on above: Performed By: #### U RCX #### [facility] [address] [address] [address] Caitlin Martinez MCHC (RBC) [Mass/Vol] 31.7 g/dL Normal 29.9-35.2 [facility] Comment on above: Performed By: #### U RCX #### [facility] [address] [address] [address] Caitlin Martinez MCV (RBC) [Entitic vol] 89.0 fL Normal 81.0-99.0 [facility] Comment on above: Performed By: #### U RCX #### [facility] [address] [place] [address] Dr. Caitlin Martinez MONO # 0.9 103/ul Critically high 0.3-0.8 [facility] Comment on above: Performed By: #### U RCX #### [facility] [address] [place] [address] Dr. Caitlin Martinez Monocytes/100 WBC (Bld) 8.9 % Normal 1.7-12.0 [facility] Comment on above: Performed By: #### U RCX #### [facility] [address] [place] [address] Dr. Caitlin Martinez NEUT # 6.8 103/ul Critically high 1.4-6.5 [facility] Comment on above: Performed By: #### U RCX #### [facility] [address] [place] [address] Dr. Caitlin Martinez Neutrophils/100 WBC (Bld) 65.8 % Normal 43.0-75.0 [facility] Comment on above: Performed By: #### U RCX #### [facility] [address] [place] [address] Dr. Caitlin Martinez Platelet mean volume (Bld) [Entitic vol] 8.6 fL Critically low 9.5-13.5 [facility] Comment on above: Performed By: #### U RCX #### [facility] [address] [place] [address] Dr. Caitlin Martinez PLT 322 103/ul Normal 150-450 [facility] Comment on above: Performed By: #### U RCX #### [facility] [address] [place] [address] Dr. Caitlin Martinez RBC 3.19 106/ul Critically low 4.20-5.40 [facility] Comment on above: Performed By: #### U RCX #### [facility] [address] [address] [address] Caitlin Martinez WBC 10.3 103/ul Normal 4.0-11.[address] [facility] Comment on above: Performed By: #### U RCX #### [facility] [address] [place] [address] Dr. Caitlin Martinez CREATININEon 01-16-2022 Creatinine [Mass/Vol] 0.55 mg/dL Normal 0.55-1.[address] [facility] Comment on above: Performed By: #### C VDTBH #### [facility] [address] [place] [address] Dr. Caitlin Martinez EGFR-AF BELGIAN >60 Normal >=60 [facility] Comment on above: Performed By: #### C VDTBH #### [facility] [address] [place] [address] Dr. Caitlin Martinez EGFR-NON AF BELGIAN >60 Normal >=[address] [facility] Comment on above: Performed By: #### C VDTBH #### [facility] [address] [place] [address] Dr. Caitlin Martinez ELECTROLYTESon 01-16-2022 Anion gap [Moles/Vol] 13.6 mmol/L Normal [facility] Comment on above: Performed By: #### C VDTBH #### [facility] [address] [place] [address] Dr. Caitlin Martinez Chloride [Moles/Vol] 106 mmol/L Normal 98-[address] [facility] Comment on above: Performed By: #### C VDTBH #### [facility] [address] [place] [address] Dr. Caitlin Martinez CO2 [Moles/Vol] 22.9 mmol/L Normal 21.0-32.0 [facility] Comment on above: Performed By: #### C VDTBH #### [facility] [address] [place] [address] Dr. Caitlin Martinez Potassium [Moles/Vol] 3.5 mmol/L Normal 3.5-5.[address] [facility] Comment on above: Performed By: #### C VDTBH #### [facility] [address] [place] [address] Dr. Caitlin Martinez Sodium [Moles/Vol] 139 mmol/L Normal 136-145 [facility] Comment on above: Performed By: #### C VDTBH #### [facility] [address] [place] [address] Dr. Caitlin Martinez LIPASEon 01-16-2022 Lipase [Catalytic activity/Vol] 66.0 U/L Critically low 73.0-393.[address] [facility] Comment on above: Performed By: #### C BC #### [facility] [address] [place] [address] Dr. Caitlin Martinez SGOTon 01-16-2022 AST [Catalytic activity/Vol] 12 U/L Critically low 15-[address] [facility] Comment on above: Performed By: #### C VDTBH #### [facility] [address] [place] [address] Dr. Caitlin Martinez SGPTon 01-16-2022 ALT [Catalytic activity/Vol] 9 U/L Critically low 14-[address] [facility] Comment on above: Performed By: #### C VDTBH #### [facility] [address] [place] [address] Dr. Caitlin Martinez CBC AUTO DIFFon 01-15-2022 BASO # 0.1 103/ul Normal 0.0-0.[address] [facility] Comment on above: Performed By: #### C VDTBH #### [facility] [address] [place] [address] Dr. Caitlin Martinez Basophils/100 WBC (Bld) 0.4 % Normal 0.2-2.[address] [facility] Comment on above: Performed By: #### C VDTBH #### [facility] [address] [place] [address] Dr. Caitlin Martinez EO # 0.2 103/ul Normal 0.0-0.[address] [facility] Comment on above: Performed By: #### C VDTBH #### [facility] [address] [place] [address] Dr. Caitlin Martinez Eosinophils/100 WBC (Bld) 1.4 % Normal 0.9-7.[address] [facility] Comment on above: Performed By: #### C VDTBH #### [facility] [address] [place] [address] Dr. Caitlin Martinez Erythrocyte distribution width (RBC) [Ratio] 14.1 % Normal 11.0-15.[address] [facility] Comment on above: Performed By: #### C VDTBH #### [facility] [address] [place] [address] Dr. Caitlin Martinez Hematocrit (Bld) [Volume fraction] 28.4 % Critically low 36.0-48.[address] [facility] Comment on above: Performed By: #### C VDTBH #### [facility] [address] [place] [address] Dr. Caitlin Martinez Hemoglobin (Bld) [Mass/Vol] 9.0 g/dL Critically low 12.0-16.[address] [facility] Comment on above: Performed By: #### C VDTBH #### [facility] [address] [place] [address] Dr. Caitlin Martinez IG # 0.18 10e3/ul Critically high 0.00-0.03 [facility] Comment on above: Performed By: #### C VDTBH #### [facility] [address] [place] [address] Dr. Caitlin Martinez IG % 1.3 % Critically high 0.0-0.5 [facility] Comment on above: Performed By: #### C VDTBH #### [facility] [address] [place] [address] Dr. Caitlin Martinez LYMPH # 2.4 103/ul Normal 1.2-3.8 [facility] Comment on above: Performed By: #### C VDTBH #### [facility] [address] [place] [address] Dr. Caitlin Martinez Lymphocytes/100 WBC (Bld) 16.8 % Critically low 20.5-60.[address] [facility] Comment on above: Performed By: #### C VDTBH #### [facility] [address] [place] [address] Dr. Caitlin Martinez MANUAL DIFF REQ NO Normal [facility] Comment on above: Performed By: #### C VDTBH #### [facility] [address] [place] [address] Dr. Caitlin Martinez MCH (RBC) [Entitic mass] 27.9 pg Normal 26.7-34.[address] [facility] Comment on above: Performed By: #### C VDTBH #### [facility] [address] [place] [address] Dr. Caitlin Martinez MCHC (RBC) [Mass/Vol] 31.7 g/dL Normal 29.9-35.[address] [facility] Comment on above: Performed By: #### C VDTBH #### [facility] [address] [place] [address] Dr. Caitlin Martinez MCV (RBC) [Entitic vol] 87.9 fL Normal 81.0-99.[address] [facility] Comment on above: Performed By: #### C VDTBH #### [facility] [address] [place] [address] Dr. Caitlin Martinez MONO # 0.9 103/ul Critically high 0.3-0.8 [facility] Comment on above: Performed By: #### C VDTBH #### [facility] [address] [place] [address] Dr. Caitlin Martinez Monocytes/100 WBC (Bld) 6.7 % Normal 1.7-12.[address] [facility] Comment on above: Performed By: #### C VDTBH #### [facility] [address] [place] [address] Dr. Caitlin Martinez NEUT # 10.3 103/ul Critically high 1.4-6.5 [facility] Comment on above: Performed By: #### C VDTBH #### [facility] [address] [place] [address] Dr. Caitlin Martinez Neutrophils/100 WBC (Bld) 73.4 % Normal 43.0-75.[address] [facility] Comment on above: Performed By: #### C VDTBH #### [facility] [address] [place] [address] Dr. Caitlin Martinez Platelet mean volume (Bld) [Entitic vol] 9.0 fL Critically low 9.5-13.5 [facility] Comment on above: Performed By: #### C VDTBH #### [facility] [address] [place] [address] Dr. Caitlin Martinez PLT 318 103/ul Normal 150-450 [facility] Comment on above: Performed By: #### C VDTBH #### [facility] [address] [place] [address] Dr. Caitlin Martinez RBC 3.23 106/ul Critically low 4.20-5.40 [facility] Comment on above: Performed By: #### C VDTBH #### [facility] [address] [place] [address] Dr. Caitlin Martinez WBC 14.0 103/ul Critically high 4.0-11.0 [facility] Comment on above: Performed By: #### C VDTBH #### [facility] [address] [place] [address] ABD/PELVIS WO CONon [...] DAVID BLACKMON Date: 2022-01-15 16:31 Normal [facility] CULTURE URINEon 01-15-2022 CULTURE URINE Culture Observations : LIGHT GROWTH OF MIXED GENITAL COSME. NO POTENTIAL PATHOGENS SEEN. Normal [facility] Comment on above: Performed By: #### U RCX #### [facility] [address] [place] [address] Dr. Caitlin Martinez UA (CLEAN/CATCH) INJECTION MOLDER/MICRO I F IND.on 01-15-2022 Bilirubin Ql (U) Negative Normal NEGATIVE [facility] Comment on above: Performed By: #### C BC #### [facility] [address] [place] [address] Dr. Caitlin Martinez Clarity (U) CLEAR Normal CLEAR [facility] Comment on above: Performed By: #### C BC #### [facility] [address] [place] [address] Dr. Caitlin Martinez Color (U) LT. YELLOW Normal YELLOW [facility] Comment on above: Performed By: #### C BC #### [facility] [address] [place] [address] Dr. Caitlin Martinez Glucose Ql (U) Negative Normal NEGATIVE [facility] Comment on above: Performed By: #### C BC #### [facility] [address] [place] [address] Dr. Caitlin Martinez Hemoglobin Ql (U) Negative Normal NEGATIVE [facility] Comment on above: Performed By: #### C BC #### [facility] [address] [place] [address] Dr. Caitlin Martinez Ketones Ql (U) Negative Normal NEGATIVE [facility] Comment on above: Performed By: #### C BC #### [facility] [address] [place] [address] Dr. Caitlin Martinez LEUKOCYTES TRACE Abnormal NEGATIVE [facility] Comment on above: Performed By: #### C BC #### [facility] [address] [place] [address] Dr. Caitlin Martinez Nitrite Ql (U) Negative Normal NEGATIVE [facility] Comment on above: Performed By: #### C BC #### [facility] [address] [place] [address] Dr. Caitlin Martinez pH (U) 7.0 [pH] Normal 5-[address] [facility] Comment on above: Performed By: #### C BC #### [facility] [address] [place] [address] Dr. Caitlin Martinez SPEC GRAVITY 1.010 Normal 1.005-<=1.025 [facility] Comment on above: Performed By: #### C BC #### [facility] [address] [place] [address] Dr. Caitlin Martinez UA PROTEIN Negative Normal NEGATIVE/ TRACE [facility] Comment on above: Performed By: #### C BC #### [facility] [address] [place] [address] Dr. Caitlin Martinez UR MICRO IND INDICATED Normal [facility] Comment on above: Performed By: #### C BC #### [facility] [address] [place] [address] Dr. Caitlin Martinez Urobilinogen Qn (U) 0.2 {Barbara'U}/dL Normal 0.2 - 1. [address] [facility] Comment on above: Performed By: #### C BC #### [facility] [address] [place] [address] Dr. Caitlin Martinez URINE MICROSCOPIC ONLYon BACTERIA MODERATE Abnormal NONE SEEN [facility] Comment on above: Performed By: #### C BC #### [facility] [address] [place] [address] Dr. Caitlin Martinez Bacteria identified Cx Nom (U) INDICATED Normal [facility] Comment on above: Performed By: #### C BC #### [facility] [address] [place] [address] Dr. Caitlin Martinez CAST NONE SEEN Normal NONE SEEN [facility] Comment on above: Performed By: #### C BC #### [facility] [address] [place] [address] Dr. Caitlin Martinez Crystals LM Nom (Urine sed) NONE SEEN Normal NONE SEEN [facility] Comment on above: Performed By: #### C BC #### [facility] [address] [place] [address] Dr. Caitlin Martinez Epithelial cells LM Ql (Urine sed) MODERATE Abnormal NONE SEEN /RARE [facility] Comment on above: Performed By: #### C BC #### [facility] [address] [place] [address] Dr. Caitlin Martinez MUCOUS NONE SEEN Normal NONE SEEN [facility] Comment on above: Performed By: #### C BC #### [facility] [address] [place] [address] Dr. Caitlin Martinez RBC NONE SEEN Abnormal 0-2 [facility] Comment on above: Performed By: #### C BC #### [facility] [address] [place] [address] Dr. Caitlin Martinez WBC 2-5 Abnormal NONE SEEN [facility] Comment on above: Performed By: #### C BC #### [facility] [address] [place] [address] Dr. Caitlin Martinez US APPENDIXon 01-15-2022 US [...] DAVID BLACKMON Date: 2022-01-15 14:14 Normal [facility] US PREG GROWTHon 01-15-2022 US [...] DAVID BLACKMON Date: 2022-01-15 10:59 Normal [facility] US PREG PLACENTAon US PREG [...] DAVID BLACKMON Date: 2022-01-15 10:57 Normal [facility] UA (CLEAN/CATCH) INJECTION MOLDER/MICRO I F IND.on 12-29-2021 Bilirubin Ql (U) Negative Normal NEGATIVE [facility] Comment on above: Performed By: #### C BC #### [facility] [address] [place] [address] Dr. Caitlin Martinez Clarity (U) CLEAR Normal CLEAR [facility] Comment on above: Performed By: #### C BC #### [facility] [address] [place] [address] Dr. Caitlin Martinez Color (U) LT. YELLOW Normal YELLOW [facility] Comment on above: Performed By: #### C BC #### [facility] [address] [place] [address] Dr. Caitlin Martinez Glucose Ql (U) Negative Normal NEGATIVE [facility] Comment on above: Performed By: #### C BC #### [facility] [address] [place] [address] Dr. Caitlin Martinez Hemoglobin Ql (U) Negative Normal NEGATIVE [facility] Comment on above: Performed By: #### C BC #### [facility] [address] [place] [address] Dr. Caitlin Martinez Ketones Ql (U) Negative Normal NEGATIVE [facility] Comment on above: Performed By: #### C BC #### [facility] [address] [place] [address] Dr. Caitlin Martinez LEUKOCYTES Negative Normal NEGATIVE [facility] Comment on above: Performed By: #### C BC #### [facility] [address] [place] [address] Dr. Caitlin Martinez Nitrite Ql (U) Negative Normal NEGATIVE [facility] Comment on above: Performed By: #### C BC #### [facility] [address] [place] [address] Dr. Caitlin Martinez pH (U) 6.5 [pH] Normal 5-[address] [facility] Comment on above: Performed By: #### C BC #### [facility] [address] [place] [address] Dr. Caitlin Martinez SPEC GRAVITY 1.020 Normal 1.005-<=1.025 [facility] Comment on above: Performed By: #### C BC #### [facility] [address] [place] [address] Dr. Caitlin Martinez UA PROTEIN Negative Normal NEGATIVE/ TRACE [facility] Comment on above: Performed By: #### C BC #### [facility] [address] [place] [address] Dr. Caitlin Martinez UR MICRO IND NOT INDICATED Normal [facility] Comment on above: Performed By: #### C BC #### [facility] [address] [place] [address] Dr. Caitlin Martinez Urobilinogen Qn (U) 1.0 {Barbara'U}/dL Normal 0.2 - 1. [address] [facility] Comment on above: Performed By: #### C BC #### [facility] [address] [place] [address] Dr. Caitlin Martinez US PREG CERVICAL LENGTHon [...] KIRK OATES Date: 2021-12-29 15:53 Normal [facility] UA (CLEAN/CATCH) INJECTION MOLDER/MICRO I F IND.on 12-18-2021 Bilirubin Ql (U) Negative Normal NEGATIVE [facility] Comment on above: Performed By: #### C BC #### [facility] [address] [place] [address] Dr. Caitlin Martinez Clarity (U) CLEAR Normal CLEAR [facility] Comment on above: Performed By: #### C BC #### [facility] [address] [place] [address] Dr. Caitlin Martinez Color (U) YELLOW Normal YELLOW [facility] Comment on above: Performed By: #### C BC #### [facility] [address] [place] [address] Dr. Caitlin Martinez Glucose Ql (U) Negative Normal NEGATIVE [facility] Comment on above: Performed By: #### C BC #### [facility] [address] [place] [address] Dr. Caitlin Martinez Hemoglobin Ql (U) Negative Normal NEGATIVE [facility] Comment on above: Performed By: #### C BC #### [facility] [address] [place] [address] Dr. Caitlin Martinez Ketones Ql (U) TRACE Abnormal NEGATIVE [facility] Comment on above: Performed By: #### C BC #### [facility] [address] [place] [address] Dr. Caitlin Martinez LEUKOCYTES Negative Normal NEGATIVE [facility] Comment on above: Performed By: #### C BC #### [facility] [address] [place] [address] Dr. Caitlin Martinez Nitrite Ql (U) Negative Normal NEGATIVE [facility] Comment on above: Performed By: #### C BC #### [facility] [address] [place] [address] Dr. Caitlin Martinez pH (U) 6.0 [pH] Normal 5-[address] [facility] Comment on above: Performed By: #### C BC #### [facility] [address] [place] [address] Dr. Caitlin Martinez SPEC GRAVITY 1.025 Normal 1.005-<=1.025 [facility] Comment on above: Performed By: #### C BC #### [facility] [address] [place] [address] Dr. Caitlin Martinez UA PROTEIN Negative Normal NEGATIVE/ TRACE [facility] Comment on above: Performed By: #### C BC #### [facility] [address] [place] [address] Dr. Caitlin Martinez UR MICRO IND NOT INDICATED Normal [facility] Comment on above: Performed By: #### C BC #### [facility] [address] [place] [address] Dr. Caitlin Martinez Urobilinogen Qn (U) 4 {Barbara'U}/dL Abnormal 0.2 - 1.[address] [facility] Comment on above: Performed By: #### C BC #### [facility] [address] [place] [address] Dr. Caitlin Martinez RHOGAMon 11-28-2021 RHOGAM Status Information Issued Quantity 1 Product ID Rh Immune Globulin Lot Number [id number] Issue Date/Time [id number] Normal [facility] Comment on above: Performed By: #### I HORACIO #### [facility] [address] [place] [address] Dr. Caitlin Martinez TYPE AND SCREENon 11-27-2021 TYPE AND SCREEN Negative Normal [facility] Comment on above: Performed By: #### T NS #### [facility] [address] [place] [address] Dr. Caitlin Martinez CULTURE URINEon 11-23-2021 CULTURE URINE Culture Observations : No growth Normal [facility] Comment on above: Performed By: #### I HORACIO #### [facility] [address] [place] [address] Dr. Caitlin Martinez UA (CLEAN/CATCH) INJECTION MOLDER/MICRO I F IND.on 11-23-2021 Bilirubin Ql (U) Negative Normal NEGATIVE [facility] Comment on above: Performed By: #### U RCX #### [facility] [address] [place] [address] Dr. Caitlin Martinez Clarity (U) CLEAR Normal CLEAR [facility] Comment on above: Performed By: #### U RCX #### [facility] [address] [place] [address] Dr. Caitlin Martinez Color (U) LT. YELLOW Normal YELLOW [facility] Comment on above: Performed By: #### U RCX #### [facility] [address] [place] [address] Dr. Caitlin Martinez Glucose Ql (U) Negative Normal NEGATIVE [facility] Comment on above: Performed By: #### U RCX #### [facility] [address] [place] [address] Dr. Caitlin Martinez Hemoglobin Ql (U) Negative Normal NEGATIVE [facility] Comment on above: Performed By: #### U RCX #### [facility] [address] [place] [address] Dr. Caitlin Martinez Ketones Ql (U) Negative Normal NEGATIVE [facility] Comment on above: Performed By: #### U RCX #### [facility] [address] [place] [address] Dr. Caitlin Martinez LEUKOCYTES SMALL Abnormal NEGATIVE [facility] Comment on above: Performed By: #### U RCX #### [facility] [address] [place] [address] Dr. Caitlin Martinez Nitrite Ql (U) Negative Normal NEGATIVE [facility] Comment on above: Performed By: #### U RCX #### [facility] [address] [place] [address] Dr. Caitlin Martinez pH (U) 6.5 [pH] Normal 5-9 [facility] Comment on above: Performed By: #### U RCX #### [facility] [address] [place] [address] Dr. Caitlin Martinez SPEC GRAVITY 1.010 Normal 1.005-<=1.025 [facility] Comment on above: Performed By: #### U RCX #### [facility] [address] [place] [address] Dr. Caitlin Martinez UA PROTEIN Negative Normal NEGATIVE/ TRACE [facility] Comment on above: Performed By: #### U RCX #### [facility] [address] [place] [address] Dr. Caitlin Martinez UR MICRO IND INDICATED Normal [facility] Comment on above: Performed By: #### U RCX #### [facility] [address] [place] [address] Dr. Caitlin Martinez Urobilinogen Qn (U) 0.2 {Barbara'U}/dL Normal 0.2 - 1. [address] [facility] Comment on above: Performed By: #### U RCX #### [facility] [address] [place] [address] Dr. Caitlin Martinez URINE MICROSCOPIC ONLYon BACTERIA TRACE Abnormal NONE SEEN [facility] Comment on above: Performed By: #### U RCX #### [facility] [address] [place] [address] Dr. Catilin Martinez Bacteria identified Cx Nom (U) INDICATED Normal [facility] Comment on above: Performed By: #### U RCX #### [facility] [address] [place] [address] Dr. Caitlin Martinez CAST SEEN Abnormal NONE SEEN [facility] Comment on above: Performed By: #### U RCX #### [facility] [address] [place] [address] Dr. Caitlin Martinez Crystals LM Nom (Urine sed) SEEN Abnormal NONE SEEN [facility] Comment on above: Performed By: #### U RCX #### [facility] [address] [place] [address] Dr. Caitlin Martinez Epithelial cells LM Ql (Urine sed) RARE Normal NONE SEEN /RARE [facility] Comment on above: Performed By: #### U RCX #### [facility] [address] [place] [address] Dr. Caitlin Martinez MUCOUS TRACE Abnormal NONE SEEN [facility] Comment on above: Performed By: #### U RCX #### [facility] [address] [place] [address] Dr. Caitlin Martinez RBC 0-2 Normal 0-[address] [facility] Comment on above: Performed By: #### U RCX #### [facility] [address] [place] [address] Dr. Caitlin Martinez WBC 2-5 Abnormal NONE SEEN [facility] Comment on above: Performed By: #### U RCX #### [facility] [address] [place] [address] Dr. Caitlin Martinez GLUCOSE - 1HRon 11-06-2021 Glucose [Mass/Vol] 131 mg/dL Critically high 74-106 T [facility] Comment on above: Performed By: #### I HORACIO #### [facility] [address] [place] [address] Dr. Caitlin Martinez HEMOGRAM AND PLATELon 2021 Hematocrit (Bld) [Volume fraction] 34.2 % Critically low 36.0-48.[address] [facility] Comment on above: Performed By: #### C BC #### [facility] [address] [place] [address] Dr. Caitlin Martinez Hemoglobin (Bld) [Mass/Vol] 11.3 g/dL Critically low 12.0-16.[address] [facility] Comment on above: Performed By: #### C BC #### [facility] [address] [place] [address] Dr. Caitlin Martinez MCH (RBC) [Entitic mass] 31.7 pg Normal 26.7-34.0 [facility] Comment on above: Performed By: #### C BC #### [facility] [address] [place] [address] Dr. Caitlin Martinez MCHC (RBC) [Mass/Vol] 33.0 g/dL Normal 29.9-35.2 [facility] Comment on above: Performed By: #### C BC #### [facility] [address] [place] [address] Dr. Caitlin Martinez MCV (RBC) [Entitic vol] 96.1 fL Normal 81.0-99.0 [facility] Comment on above: Performed By: #### C BC #### [facility] [address] [place] [address] Dr. Caitlin Martinez PLT 372 103/ul Normal 150-450 [facility] Comment on above: Performed By: #### C BC #### [facility] [address] [place] [address] Dr. Caitlin Martinez RBC 3.56 106/ul Critically low 4.20-5.40 [facility] Comment on above: Performed By: #### C BC #### [facility] [address] [place] [address] Dr. Caitlin Martinez WBC 10.1 103/ul Normal 4.0-11.0 [facility] Comment on above: Performed By: #### C BC #### [facility] [address] [place] [address] Dr. Caitlin Martinez CHLAMYDIA/GONOCOCCUS JONATAN ( AB/URINE/PAPon 10-31-2021 Chlamydia trachomatis, JONATAN Negative Normal Negative [facility] Comment on above: Performed By: #### C BC #### [facility] [address] [place] [address] Dr. Caitlin Martinez Neisseria gonorrhoeae, JONATAN Negative Normal Negative [facility] Comment on above: Performed By: #### C BC #### [facility] [address] [place] [address] Dr. Caitlin Martinez VAGINITIS/VAGINOSIS DNA PROB Paramjit 10-29-2021 Selena species Negative Normal Negative [facility] Comment on above: Performed By: #### U RCX #### [facility] [address] [address] [address] Caitlin Martinez Gardnerella vaginalis Negative Normal Negative [facility] Comment on above: Performed By: #### U RCX #### [facility] [address] [place] [address] Dr. Caitlin Martinze Trichomonas vaginalis Negative Normal Negative [facility] Comment on above: Performed By: #### U RCX #### [facility] [address] [address] [address] Caitlin Martinez US PREG INCOMPLETE ANATOMYon [...] DAVID BLACKMON Date: 2021-10-26 12:05 Normal [facility] CBC W MANUAL DIFFon 10-25-19 22 ATYPICAL LYMPH # Normal [facility] Comment on above: Performed By: #### U RCX #### [facility] [address] [place] [address] Dr. Caitlin Martinez ATYPICAL LYMPH % Normal [facility] Comment on above: Performed By: #### U RCX #### [facility] [address] [place] [address] Dr. Caitlin Martinez BAND # 0.1 103/ul Normal 0.0-0.3 [facility] Comment on above: Performed By: #### U RCX #### [facility] [address] [place] [address] Dr. Caitlin Martinez BAND % 1 % Normal 0-5 [facility] Comment on above: Performed By: #### U RCX #### [facility] [address] [address] [address] Caitlin Martinez BASOM # 0.00 103/ul Normal 0.00-0.[address] [facility] Comment on above: Performed By: #### U RCX #### [facility] [address] [address] [address] Caitlin Martinez BASOM % 0.0 % Critically low 0.2-2.0 [facility] Comment on above: Performed By: #### U RCX #### [facility] [address] [address] [address] Caitlin Martinez BLAST # Normal [facility] Comment on above: Performed By: #### U RCX #### [facility] [address] [place] [address] Dr. Caitlin Martinez BLAST % Normal [facility] Comment on above: Performed By: #### U RCX #### [facility] [address] [place] [address] Dr. Caitlin Martinez CORRECTED WBC Normal 4.0-11.0 [facility] Comment on above: Performed By: #### U RCX #### [facility] [address] [address] [address] Caitlin Martinez EOS # 0.12 103/ul Normal 0.00-0.[address] [facility] Comment on above: Performed By: #### U RCX #### [facility] [address] [place] [address] Dr. Caitlin Martinez EOS% 1.0 % Normal 0.9-7.[address] [facility] Comment on above: Performed By: #### U RCX #### [facility] [address] [place] [address] Dr. Caitlin Martinez HCT 31.5 % Critically low 36.0-48.0 [facility] Comment on above: Performed By: #### U RCX #### [facility] [address] [place] [address] Dr. Caitlin Martinez HGB 10.5 g/dl Critically low 12.0-16.0 [facility] Comment on above: Performed By: #### U RCX #### [facility] [address] [address] [address] Caitlin Martinez LYMPHM # 0.37 103/ul Critically low 1.20-3.80 [facility] Comment on above: Performed By: #### U RCX #### [facility] [address] [address] [address] Caitlin Martinez LYMPHM% 3.0 % Critically low 20.5-60.0 [facility] Comment on above: Performed By: #### U RCX #### [facility] [address] [address] [address] Caitlin Martinez MCH 31.8 pg Normal 26.7-34.[address] [facility] Comment on above: Performed By: #### U RCX #### [facility] [address] [place] [address] Dr. Caitlin Martinez MCHC 33.3 g/dl Normal 29.9-35.[address] [facility] Comment on above: Performed By: #### U RCX #### [facility] [address] [place] [address] Dr. Caitlin Martinez MCV 95.5 fL Normal 81.0-99.[address] [facility] Comment on above: Performed By: #### U RCX #### [facility] [address] [place] [address] Dr. Caitlin Martinez METAMYELOCYTE # Normal [facility] Comment on above: Performed By: #### U RCX #### [facility] [address] [address] [address] Caitlin Martinez METAMYELOCYTE % Normal [facility] Comment on above: Performed By: #### U RCX #### [facility] [address] [place] [address] Dr. Caitlin Martinez MONOM# 0.73 103/ul Normal 0.30-0.[address] [facility] Comment on above: Performed By: #### U RCX #### [facility] [address] [address] [address] Caitlin Martinez MONOM% 6.0 % Normal 1.7-12.[address] [facility] Comment on above: Performed By: #### U RCX #### [facility] [address] [address] [address] Caitlin Martinez MPV 9.5 fL Normal 9.5-13.[address] [facility] Comment on above: Performed By: #### U RCX #### [facility] [address] [address] [address] Caitlin Martinez MYELOCYTE # Normal [facility] Comment on above: Performed By: #### U RCX #### [facility] [address] [address] [address] Caitlin Martinez MYELOCYTE % Normal [facility] Comment on above: Performed By: #### U RCX #### [facility] [address] [place] [address] Dr. Caitlin Martinez NRBC Normal [facility] Comment on above: Performed By: #### U RCX #### [facility] [address] [place] [address] Dr. Caitlin Martinez PLT 275 103/ul Normal 150-[address] [facility] Comment on above: Performed By: #### U RCX #### [facility] [address] [place] [address] Dr. Caitlin Martinez RBC 3.30 106/ul Critically low 4.20-5.40 [facility] Comment on above: Performed By: #### U RCX #### [facility] [address] [place] [address] Dr. Caitlin Martinez RDW 13.6 % Normal 11.0-15.[address] [facility] Comment on above: Performed By: #### U RCX #### [facility] [address] [address] [address] Caitlin Martinez SEG # 10.86 103/ul Critically high 1.40-6.50 [facility] Comment on above: Performed By: #### U RCX #### [facility] [address] [place] [address] Dr. Caitlin Martinez SEG % 89.0 % Critically high 43.0-75.0 [facility] Comment on above: Performed By: #### U RCX #### [facility] [address] [place] [address] Dr. Caitlin Martinez WBC 12.2 103/ul Critically high 4.0-11.0 [facility] Comment on above: Performed By: #### U RCX #### [facility] [address] [address] [address] Caitlin Martinez ER URINE PROFILEon 2 Bilirubin Ql (U) Negative Normal NEGATIVE [facility] Comment on above: Performed By: #### C VDTBH #### [facility] [address] [address] [address] Caitlin Martinez Clarity (U) SL CLOUDY Abnormal CLEAR [facility] Comment on above: Performed By: #### C VDTBH #### [facility] [address] [place] [address] Dr. Caitlin Martinez Color (U) YELLOW Normal YELLOW [facility] Comment on above: Performed By: #### C VDTBH #### [facility] [address] [place] [address] Dr. Caitlin Martinez ERUNadine A micrscopic examination will be performed if indicated. Normal [facility] Comment on above: Performed By: #### C VDTBH #### [facility] [address] [place] [address] Dr. Caitlin Martinez Glucose Ql (U) Negative Normal NEGATIVE The [facility] Comment on above: Performed By: #### C VDTBH #### [facility] [address] [address] [address] Caitlin Martinez Hemoglobin Ql (U) Negative Normal NEGATIVE [facility] Comment on above: Performed By: #### C VDTBH #### [facility] [address] [place] [address] Dr. Caitlin Martinez Ketones Ql (U) >=80 Abnormal NEGATIVE [facility] Comment on above: Performed By: #### C VDTBH #### [facility] [address] [place] [address] Dr. Caitlin Martinez LEUKOCYTES Negative Normal NEGATIVE [facility] Comment on above: Performed By: #### C VDTBH #### [facility] [address] [place] [address] Dr. Caitlin Martinez Nitrite Ql (U) Negative Normal NEGATIVE [facility] Comment on above: Performed By: #### C VDTBH #### [facility] [address] [place] [address] Dr. Caitlin Martinez pH (U) 6.0 [pH] Normal 5-[address] [facility] Comment on above: Performed By: #### C VDTBH #### [facility] [address] [place] [address] Dr. Caitlin Martinez SPEC GRAVITY 1.020 Normal 1.005-<=1.025 [facility] Comment on above: Performed By: #### C VDTBH #### [facility] [address] [place] [address] Dr. Caitlin Martinez UA PROTEIN Negative Normal NEGATIVE/ TRACE [facility] Comment on above: Performed By: #### C VDTBH #### [facility] [address] [place] [address] Dr. Caitlin Martinez UR MICRO IND NOT INDICATED Normal The [facility] Comment on above: Performed By: #### C VDTBH #### [facility] [address] [place] [address] Dr. Caitlin Martinez Urobilinogen Qn (U) 1.0 {Barbara'U}/dL Normal 0.2 - 1. [address] [facility] Comment on above: Performed By: #### C VDTBH #### [facility] [address] [place] [address] Dr. Caitlin Martinez INFLUENZA A AND B AGon 10-24 INFLUHU [facility] SEE BELOW Normal [facility] Comment on above: Result Comment: Nega tive for Flu B protein antigen. Infection due to Flu B cannot be ruled out. Flu B antigen in the sample may be below the detection limit of the test. Performed By: #### C VDTBH #### [facility] [address] [place] [address] Dr. Caitlin Martinez INFLUENZA A AG Positive Abnormal NEGATIVE SEE COMMENT [facility] Comment on above: Performed By: #### C VDTBH #### [facility] [address] [place] [address] Dr. Caitlin Martinez INFLUENZA B AG Negative Normal NEGATIVE SEE COMMENT [facility] Comment on above: Performed By: #### C VDTBH #### [facility] [address] [place] [address] Dr. Caitlin Martinez INFLUPOSH SEE BELOW Normal [facility] Comment on above: Result Comment: NOTE : Live attenuated influenzae vaccine viruses can cause a positive result for a rapid influenza diagnostic test if administered up to 7 days prior to rapid testing. Performed By: #### C VDTBH #### [facility] [address] [place] [address] Dr. Caitlin Martinez INTERNAL CONTROLS Within Normal Limits Normal Wi thin Normal Limits [facility] Comment on above: Performed By: #### C VDTBH #### [facility] [address] [place] [address] Dr. Caitlin Martinez PROF CHEM 8 (BAS METB)on Anion gap [Moles/Vol] 14.4 mmol/L Normal [facility] Comment on above: Performed By: #### D RHONA, ABID #### [facility] [address] [place] [address] Dr. Caitlin Martinez Calcium [Mass/Vol] 8.4 mg/dL Critically low 8.5-10.1 [facility] Comment on above: Performed By: #### D RHONA, ABID #### [facility] [address] [place] [address] Dr. Caitlin Martinez Chloride [Moles/Vol] 101 mmol/L Normal 98-[address] [facility] Comment on above: Performed By: #### D RHONA, ABID #### [facility] [address] [place] [address] Dr. Caitlin Martinez CO2 [Moles/Vol] 19.7 mmol/L Critically low 21.0-32.[address] [facility] Comment on above: Performed By: #### D RHONA, ABID #### [facility] [address] [address] [address] Caitlin Martinez Creatinine [Mass/Vol] 0.55 mg/dL Normal 0.55-1.[address] [facility] Comment on above: Performed By: #### D IRCMB, ABID #### [facility] [address] [address] [address] Caitlin Martinez EGFR-AF BELGIAN >60 Normal >=60 [facility] Comment on above: Performed By: #### D IRCMB, ABID #### [facility] [address] [address] [address] Caitlin Martinez EGFR-NON AF BELGIAN >60 Normal >=[address] [facility] Comment on above: Performed By: #### D IRCMB, ABID #### [facility] [address] [address] [address] Caitlin Martinez Glucose [Mass/Vol] 91 mg/dL Normal 74-106 [facility] Comment on above: Performed By: #### D IRCMB, ABID #### [facility] [address] [address] [address] Caitlin Martinez Potassium [Moles/Vol] 3.1 mmol/L Critically low 3.5-5.[address] [facility] Comment on above: Performed By: #### D IRCMB, ABID #### [facility] [address] [address] [address] Caitlin Martinez Sodium [Moles/Vol] 132 mmol/L Critically low 136-145 [facility] Comment on above: Performed By: #### D IRCMB, ABID #### [facility] [address] [address] [address] Caitlin Martinez Urea nitrogen [Mass/Vol] 7.0 mg/dL Normal 7.0-18.[address] [facility] Comment on above: Performed By: #### D IRCMB, ABID #### [facility] [address] [address] [address] Caitlin Martinez Urea nitrogen/Creatinine [Mass ratio] 12.7 mg/mg Normal [facility] Comment on above: Performed By: #### D IRCMB, ABID #### [facility] [address] [address] [address] Caitlin Martinez US PREG ANATOMY SINGLEon [...] DAVID BLACKMON Date: 2021-09-28 09:17 Normal [facility] CHEMISTRYOrdered By: SYSTEM SYSTEM on 06-21-2021 [place] [address] m[IU]/mL High 1 - 3 mIU/mL [facility] [...] gas pattern is nonobstructive. There is a zaojvudb-ul-ytmbt amount of stool burden. IMPRESSION: No malalignment. No acute compression deformity. Umkaplac-zy-listd amount of stool burden. [employer] Workstation ID: [id number] Dictated by: LUBA GARCÍA on [facility] Mar 05, 2020 4:09:51 PM EDT Transcribed by: KELVIN GUADALUPE on [facility] Mar 05, 2020 4:17:18 PM EDT Finalized by: LUBA GARCÍA on [facility] Mar 05, 2020 7:52:11 PM EDT Normal [facility] Comment on above: Order Comment: Injur y/Trauma or Illness?:Illness/Other How long have you had these symptoms (acute/chronic)?:Chronic Reason for exam?:low back pain History of cancer?:n Surgeries, chemotherapy, or radiation?:n Type of Exam?:Initial Additional signs and symptoms?:fibromyalgia XR Lumbar Spine 2-3 Views (S tandard)on 03-05-2020 No malalignment. No acute compression deformity. Ydqxfkoz-ll-qblkk amount of stool burden. [employer] Workstation ID: [id number] [facility] EXAMINATION: XR LUMBAR SPINE 2-3 VIEWS [...] gas pattern is nonobstructive. There is a ztbclxvk-an-ldsdl amount of stool burden. [facility] Interface, Rad In Jose Luis Speechq [...] gas pattern is nonobstructive. There is a xxnbptwf-oz-jlzmj amount of stool burden. IMPRESSION: No malalignment. No acute compression deformity. Hsignbjq-lx-cflll amount of stool burden. [employer] Workstation ID: [id number] [facility] CNOVon 10-28-2018 CNOV Office Visit (OLVIN ) SANDY GODINEZ ([id number]) 1995 F Date Time Provider Department 10/28/18 [...] Farrah Garcia MD [address] [place] [address] Consult requested for an opinion regarding the [...] TIME: 12:44 PM Referring Provider: FARRAH GARCIA [[id number]] Allergies As of Date: 10/28/2018 (No Known [...] by WARREN RODRIGUEZ MD on 10/29/18 Normal [facility] PROGRESSon 10-28-2018 Protein mass conc HNO ID: [id number] Author: Warren Rodriguez Service: ? Author Type: Physician Type: Progress Notes Filed: 10/29/2018 3:03 PM Note Text: VASCULAR SURGERY INITIAL CONSULT SERVICE DATE: 10/28/2018 SERVICE TIME: 12:44 PM PRIMARY CARE PHYSICIAN: Farrah Garcia MD REFERRING PROVIDER: Farrah Garcia MD [address] [facility] [id number] Consult requested for an opinion regarding the [...] October 28, 2018 TIME: 12:44 PM Normal [facility] Vital Signs Date Time Vital Sign Value Performing Clinician Chiquis zaragoza 07-19-2023 09:31-0500 Body mass index (BMI) [Ratio] 26.79 kg/m2 [facility] Nurse [facility] 07-19-2023 09:31-0500 Body weight 73.03 kg [facility] Nurse [facility] 07-19-2023 09:31-0500 Diastolic blood pressure 72 mm[Hg] [facility] Nurse [facility] 07-19-2023 09:31-0500 Systolic blood pressure 118 mm[Hg] [facility] Nurse [facility] Encounters Encounter Date Encounter Type Care Provider [...] End: 11-08-2023 ambulatory JOSE MIGUEL R JUSTEN [facility] Start: 10-15-2023 End: 10-15-2023 ambulatory [...] Not Available Start: 07-08-2023 ambulatory Royer Layne acility:[facility] Start: 07-02-2023 End: 07-02-2023 ambulatory [...] 06-21-2021 End: 09-19-2021 Recurring Jose Miguel CAMPUZANO [facility] Start: 03-05-2020 End: 03-06-2020 Patient encounter procedure VIBHA JOHNSON [facility] Start: 03-05-2020 End: 03-05-2020 Subsequent hospital visit by physician Vibha Johnson Work Phone: [facility] Comment on above: Chronic low back [...] AM EST Routine [facility] [address] [facility] [place] [id number] Jose Miguel Campuzano, DO [address] [place] [address] [facility] Start: 07-19-2023 End: 07-19-2024 ABO/Rh ABO/Rh Lab Routine Missed menses Expected: 07/19/2023 (Approximate), Expires: 07/19/2024 [facility] Comment on above: Expected: 07/19/2023 (Approximate), Expires: 07/19/2024 Start: 07-19-2023 End: 07-19-2024 Blood type and Indirect antibody screen panel - Blood Type and screen Lab Routine Missed menses Expected: 07/19/2023 (Approximate), Expires: 07/19/2024 [facility] Work Phone: Comment on above: Expected: 07/19/2023 (Approximate), Expires: 07/19/2024 Start: 07-19-2023 End: 07-19-2024 US Pelvis transvaginal US OB transvaginal Imaging Routine Missed menses Expected: 07/19/2023 (Approximate), Expires: 07/19/2024 [facility] Comment on above: Expected: 07/19/2023 (Approximate), Expires: 07/19/2024 Start: 02-16-2020 Influenza vaccinatio n given Sequential Influenza Vaccine (#1) [facility] Start: 2014 Hepatitis C antibody , confirmatory test Hepatitis C Screening [facility] Start: 08-31-2011 HIV screening HIV Screening [facility] Start: 08-31-2007 Vaccination for [place] papillomavirus HPV Vaccines (1 - 2-dose series) [facility] Start: 08-31-1999 History and physical examination, annual for health maintenance Wellness Visit [facility] Start: 1996 Screening for Chlamy tristan trachomatis Chlamydia Screening [facility] Start: 1996 Screening for malign ant neoplasm of cervix Pap Smear [facility] Start: 1996 Tetanus vaccination Tetanus: Every 1 0yrs [facility] Bacteria identified in Urine by Culture Urine culture Microbiology Routine Missed menses Ordered: 07/19/2023 [facility] Comment on above: Ordered: 07/19/2023 CBC W Auto Different ial panel - Blood CBC and differential Lab Routine Missed menses Ordered: 07/19/2023 [facility] Comment on above: Ordered: 07/19/2023 Hemoglobin A1c measurement Hemoglobin A1c Lab Routine Missed menses Ordered: 07/19/2023 [facility] Comment on above: Ordered: 07/19/2023 Hepatitis B virus knight rface Ag [Presence] in Serum or Plasma by Immunoassay Hepatitis B surface antigen Lab Routine Missed menses Ordered: 07/19/2023 [facility] Comment on above: Ordered: 07/19/2023 Hepatitis C virus Ab [Presence] in Serum or Plasma by Immunoassay Hepatitis C antibody Lab Routine Missed menses Ordered: 07/19/2023 [facility] Comment on above: Ordered: 07/19/2023 HIV-1/HIV-2 antigen/antibody combination immunoassay HIV-1 and HIV-2 antibodies Lab Routine Missed menses Ordered: 07/19/2023 [facility] Comment on above: Ordered: 07/19/2023 Reagin Ab [Presence] in Serum by RPR RPR Lab Routine Missed menses Ordered: 07/19/2023 [facility] Comment on above: Ordered: 07/19/2023 Rubella antibody, IgG Rubella an tibody, IgG Lab Routine Missed menses Ordered: 07/19/2023 [facility] Comment on above: Ordered: 07/19/2023 Payers Date Payer Category Payer Self-pay 2022 Medicaid [employer] [place] [id number] 2022-Present [address] [place] [address] [id number] 1996 Unknown [id number] 2.16.840.1.888302.3.579.2.903 1996 Unknown [id number] 2.16.840.1.748435.3.579.2.593 1996 Unknown [id number] 2.16.840.1.648427.3.579.2.593 1996 Unknown [id number] 2.16.840.1.222269.3.579.2.593 1996 Unknown [id number] 2.16.840.1.573016.3.579.2.593 1996 Unknown [id number] 2.16.840.1.385472.3.579.2.593 1996 Unknown [id number] 2.16.840.1.255409.3.579.2.593 1996 Unknown [id number] 2.16.840.1.575395.3.579.2.593 1996 Unknown [id number] 2.16.840.1.954787.3.579.2.593 1996 Unknown [id number] 2.16.840.1.651386.3.579.2.593 1996 Unknown [id number] 2.16.840.1.908067.3.579.2.593 1996 Unknown [id number] 2.16.840.1.072219.3.579.2.593 1996 Unknown [id number] 2.16.840.1.157623.3.579.2.593 1996 Unknown [id number] 2.16.840.1.624899.3.579.2.593 1996 Unknown [id number] 2.16.840.1.736646.3.579.2.593 1996 Unknown [id number] 2.16.840.1.112013.3.579.2.593 1996 Unknown [id number] 2.16.840.1.224421.3.579.2.593 1996 Unknown [id number] 2.16.840.1.518864.3.579.2.593 1996 Unknown [id number] 2.16.840.1.780792.3.579.2.593 1996 Unknown [id number] 2.16.840.1.872022.3.579.2.593 1996 Unknown [id number] 2.16.840.1.233506.3.579.2.593 1996 Unknown [id number] 2.16.840.1.268816.3.579.2.593 1996 Unknown [id number] 2.16.840.1.081029.3.579.2.1286 1996 Unknown [id number] 2.16.840.1.842201.3.579.2.1286 1996 Unknown [id number] 2.16.840.1.997299.3.579.2.1258 1996 Unknown [id number] 2.16840.1.761570.3.579.2.1258 1996 Unknown [id number] 2.16840.1.217804.3.579.2.1258 1996 Unknown [id number] 2.16840.1.241248.3.579.2.1258 1996 Unknown [id number] 2.16840.1.760238.3.579.2.1258 1996 Unknown [id number] 2.840.1.251796.3.579.2.1258 1996 Unknown [id number] 2.840.1.935458.3.579.2.1258 1996 Unknown [id number] 2.840.1.781088.3.579.2.1258 1996 Unknown [id number] 2.16840.1.757170.3.579.2.1258 1996 Unknown [id number] 2.16840.1.279396.3.579.2.1258 1996 Unknown [id number] 2.840.1.840055.3.579.2.1258 1996 Unknown [id number] 2.840.1.071722.3.579.2.1258 1996 Unknown [id number] 2.840.1.830166.3.579.2.1258 1959 Unknown [id number] 1959 Unknown [id number] Unknown [employer]ERCIAL [employer]ME RCIAL MISCELLANEOUS [id number] Effective for all dates [id number] 1.2.840.196006.1.13.385.2.7.3. 093451.315 Unknown [id number] Unknown [id number] 840.1.431318.3.579.2.531 Social History Date Type Detail Facility Tobacco smoking stat us NHIS Unknown if [facility] Sex Assigned At Not on file [facility] Start: 12-07-2022 Sex Assigned At Female Hussain Ngo [facility] Start: 12-07-2022 Tobacco smoking status NHIS Never smoked tobacco [facility] Start: 07-19-2023 Alcohol intake Current drinker of alcohol (finding) [facility] Start: 12-07-2022 History of Social function [facility] Start: 12-07-2022 Alcohol Comment 1-2 drinks less than monthly in the past year [facility] Start: 05-31-2023 [facility] Start: 1995 Sex Assigned At Female [facility] Start: 11-29-2022 Gender identity Identifies as female gender (finding) [facility] Start: 11-29-2022 Sexual orientation Heterosexual (finding) [facility] History of Present illness [...] Procedure Laterality Date DILATION AND CURETTAGE 2018 HI TONSILLECTOMY & ADENOIDECTOMY AGE 13/> 2015 WISDOM [...] sent for nausea to pharmacy. Pt desires [place] [facility] and understands to have it done at 10 weeks along w/her labs. Follow Up: Patient is to have labs drawn at directed and return to office for initial OB appointment with provider. Patient may call office as needed with any concerns or questions. Nurse Visit Completed by: Cori Daniel MA documented in this encounter [facility] Clinical Note 01-16-2022 Note Date & Type [...] by: Cecelia FOOTE Date: 2022-01-16 21:33 [facility] Clinical Note 01-16-2022 Note Date [...] by: Cecelia FOOTE Date: 2022-01-16 21:33 [facility] Note 01-15-2022 Note Date [...] by: IGOR DIAZ Date: 2022-01-15 10:10 [facility] Evaluation + Plan note Note Date & Type Note Facility Evaluation + Plan note No data available for this section [facility] Evaluation note Note Date & Type Note Facility Evaluation note Diagnosis Missed menses Nausea Nausea alone documented in this encounter [facility] Discharge instructions Note Date & Type Note Facility Hospital Discharge instructions No data available for this section [facility] Summary Purpose Family History No Family History Records FoundNo Family History Records FoundNo Family History Records FoundNo Family History Records FoundNo Family History Records FoundNo Family History Records FoundNo Family History Records Found Advance Directives No Advanced Directives Records FoundDocuments on File Type Date Recorded 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 Advance Directives and Rita torres Will 03/05/2020 2:18 PM Assessments Diagnosis Chronic low back pain, unspecified back pain laterality, unspecified whether sciatica present Additional Source Comments INFORMATION SOURCE (unrecogn ized section and content) DATE CREATED AUTHOR 11/08/2018 [facility] DATE CREATED AUTHOR AUTHOR'S ORGANIZ ATION 03/21/2020 [facility] DATE CREATED AUTHOR AUTHOR'S ORGANIZ ATION 08/04/2022 [facility] DATE CREATED AUTHOR AUTHOR'S ORGANIZ ATION 09/06/2022 [facility] DATE CREATED AUTHOR AUTHOR'S ORGANIZ ATION 09/17/2023 [facility] DATE CREATED AUTHOR AUTHOR'S ORGANIZ ATION 11/09/2023 [facility] DATE CREATED AUTHOR AUTHOR'S ORGANIZ ATION 02/03/2024 [facility] dicnv Specialists EPIC Reason for Visit (unrecogniz ed [...] BE BASED ON THE PRIMARY CLINICAL RECORDS. [facility] [employer] provides no warranty or guarantee of the accuracy or completeness of information in this document.
[2024-03-01] MEDS: ONDANSETRON PF 4 MG/2 ML VIAL IV (08:00)
[2024-03-01] MEDS: HYDROMORPHONE HCL 1 MG/ML CARTRIDGE IV (08:01)
[2024-03-01] MEDS: 0.9 % SODIUM CHLORIDE 1,000 ML 1000 ML IV (08:12)
[2024-03-01] MEDS: KETOROLAC TROMETHAMINE 30 MG/ML VIAL IVP (08:12)
[2024-03-01 08:14] LABS: Basophils Absolute Auto 0.1 10^3/uL (0.0-0.1); Basophils Percent Auto 0.8 % (0.2-2.0); Eosinophils Absolute Auto 0.4 10^3/uL (0.0-0.7); Eosinophils Percent Auto 4.2 % (0.9-7.0); Hematocrit 39.2 % (36.0-48.0); Hemoglobin 11.9 g/dL (12.0-16.0); Immature Granulocytes Abs Auto 0.05 10^3/uL (0.00-0.03); Immature Granulocytes Pct Auto 0.5 % (0.0-0.5); Lymphocytes Absolute Auto 3.5 10^3/uL (1.2-3.8); Lymphocytes Percent Auto 34.7 % (20.5-60.0); Mean Corpuscular HGB Conc 30.4 g/dL (29.9-35.2); Mean Corpuscular Hemoglobin 26.2 pg (26.7-34.0); Mean Corpuscular Volume 86.2 fL (81.0-99.0); Mean Platelet Volume 9.7 fL (9.5-13.5); Monocytes Absolute Auto 0.7 10^3/uL (0.3-0.8); Monocytes Percent Auto 6.9 % (1.7-12.0); Neutrophils Absolute Auto 5.4 10^3/uL (1.4-6.5); Neutrophils Percent Auto 52.9 % (43.0-75.0); Platelet Count 406 10^3/uL (150-450); Red Blood Count 4.55 10^6/uL (4.20-5.40); Red Cell Distribution Width 14.9 % (11.0-15.0); White Blood Count 10.1 10^3/uL (4.0-11.0)
[2024-03-01 08:18] VITALS: BP 124/81; PULSE 68; O2SAT 98
--- NOTE | 2024-03-01 08:24 | ED.ABDPAIN1 ---
HPI - Abdominal Pain General Chief Complaint: Abdominal Pain Stated Complaint: ABDOMINAL PAIN Time Seen by Provider: 03/01/24 07:48 Source: patient Mode of arrival: walk-in Limitations: no limitations History of Present Illness HPI narrative: Is patient is here with her has been complaining of severe abdominal pain. She recently delivered a baby approximately 2 to 3 weeks ago without complications. During her however they discovered because of her recurring abdominal pain that she has known gallstones and biliary dysfunction. She is actually scheduled to see her surgeon this coming Saturday to discuss elective cholecystectomy. She is breast-feeding but does have milk at home to feed the baby. Did not take any pain medications before coming here. She is not running a fever. She said the pain woke her up from her sleep this morning is quite intense and severe. She has no shortness of breath or chest pain. She had some nausea and dry heaves. Related Data Home Medications ?Medication ?Instructions ?Recorded ?Confirmed valacyclovir 500 mg tablet 500 mg PO DAILY 03/01/24 03/01/24 Previous Rx's ?Medication ?Instructions ?Recorded ibuprofen 800 mg tablet 800 mg PO Q8H PRN Moderate Pain 02/08/24 #60 tabs phenylephrine 0.25 %-mineral oil 1 applic NM BID PRN rectal 02/08/24 14 %-petrolatm 74.9 % rectal discomfort 14 days #28 grams ointment (Preparation H) Allergies Allergy/AdvReac Type Severity Reaction Status Date / Time No Known Drug Allergies Allergy Verified 01/29/23 16:30 PFSH PFSH Social History Smoking status: Never smoker Little interest or pleasure in doing things: not at all Feeling down, depressed, or hopeless: not at all Exam Narrative Exam Narrative: Patient is awake alert appears to be uncomfortable. Signs are stable and she is afebrile. Holding her upper epigastric area. HEENT examination she has no conjunctivitis or scleral icterus or jaundice. She has no respiratory distress cough or congestion. She has no chest pain. Her pulse is regular. Most of her discomfort is in the epigastric and right upper quadrant area with no peritoneal findings. Extremities are unremarkable. She was medicated shortly after arrival here. Constitutional Vital Signs, click to edit/add: Last Vital Signs Temp 97.7 F 03/01/24 07:36 Pulse 68 03/01/24 08:18 Resp 18 03/01/24 08:18 BP 124/81 03/01/24 08:18 Pulse Ox 98 03/01/24 08:18 O2 Del Method Room Air 03/01/24 07:36 Course Vital Signs Vital signs: Vital Signs Temperature 97.7 F 03/01/24 07:36 Pulse Rate 62 03/01/24 07:36 Respiratory Rate 18 03/01/24 07:36 Blood Pressure 145/96 H 03/01/24 07:36 Pulse Oximetry 97 03/01/24 07:36 Oxygen Delivery Method Room Air 03/01/24 07:36 Temperature 97.7 F 03/01/24 07:36 Pulse Rate 68 03/01/24 08:18 Respiratory Rate 18 03/01/24 08:18 Blood Pressure 124/81 03/01/24 08:18 Pulse Oximetry 98 03/01/24 08:18 Oxygen Delivery Method Room Air 03/01/24 07:36 MDM - Abdominal Pain MDM Narrative Medical decision making narrative: Laboratory testing show a normal white blood cell count and no elevation of her total bilirubin or liver function test. I reviewed her ultrasound that she had done in November and it does not fact confirm a stone in the neck of the gallbladder. The patient had excellent relief of her symptoms with medications. I spoke with her surgeon Dr. Rollins and he does not feel she needs to be admitted at this time and he will be glad to see her as scheduled on Saturday. She was advised to completely avoid all fatty greasy type foods. Today she should be on a clear liquid diet only. Lab Data Labs: Lab Results 03/01/24 Range/Units 07:41 WBC 10.1 (4.0-11.0) 10^3/uL RBC 4.55 (4.20-5.40) 10^6/uL Hgb 11.9 L (12.0-16.0) g/dL Hct 39.2 (36.0-48.0) % MCV 86.2 (81.0-99.0) fL MCH 26.2 L (26.7-34.0) pg MCHC 30.4 (29.9-35.2) g/dL RDW 14.9 (11.0-15.0) % Plt Count 406 (150-450) 10^3/uL MPV 9.7 (9.5-13.5) fL Neut % (Auto) 52.9 (43.0-75.0) % Lymph % (Auto) 34.7 (20.5-60.0) % [place] % (Auto) 6.9 (1.7-12.0) % Eos % (Auto) 4.2 (0.9-7.0) % Baso % (Auto) 0.8 (0.2-2.0) % Neut # (Auto) 5.4 (1.4-6.5) 10^3/uL Lymph # (Auto) 3.5 (1.2-3.8) 10^3/uL [place] # (Auto) 0.7 (0.3-0.8) 10^3/uL Eos # (Auto) 0.4 (0.0-0.7) 10^3/uL Baso # (Auto) 0.1 (0.0-0.1) 10^3/uL Abs Immat Gran (auto) 0.05 H (0.00-0.03) 10^3/uL Imm/Tot Granulo (auto) 0.5 (0.0-0.5) % Sodium 142 (136-145) mmol/L Potassium 4.0 (3.5-5.1) mmol/L Chloride 105 (98-107) mmol/L Carbon Dioxide 27.1 (21.0-32.0) mmol/L Anion Gap 13.9 BUN 9.0 (7.0-18.0) mg/dL Creatinine 0.65 (0.55-1.02) mg/dL Est GFR ( Amer) >60 (>=60) Est GFR (Non-Af Amer) >60 (>=60) BUN/Creatinine Ratio 13.8 Glucose 106 (74-106) mg/dL Calcium 9.0 (8.5-10.1) mg/dL Total Bilirubin 0.6 (0.2-1.0) mg/dL AST 16 (15-37) U/L ALT 23 (14-59) U/L Alkaline Phosphatase 126 H (46-116) U/L Total Protein 7.0 (6.4-8.2) g/dL Albumin 3.2 L (3.4-5.0) g/dL Globulin 3.8 g/dL Albumin/Globulin Ratio 0.8 Lipase 40.0 (16.0-77.0) U/L Discharge Plan Discharge Chief Complaint: Abdominal Pain Clinical Impression: Gallbladder attack Patient Disposition: Home, Self-Care Time of Disposition Decision: 09:09 Prescriptions / Home Meds: No Action valacyclovir 500 mg tablet 500 mg PO DAILY Preparation H 0.25-14-74.9 % ointment 1 applic NM BID PRN (Reason: rectal discomfort) 14 Days Qty: 28 2RF ibuprofen 800 mg tablet 800 mg PO Q8H PRN (Reason: Moderate Pain) Qty: 60 1RF Print Language: Japanese Additional Instructions: See your surgeon Saturday as scheduled. Return for fever or worse pain. Avoid all fatty greasy foods as discussed. Clear fluids only today Referrals: DUARTE VALDERRAMA [Primary Care Provider] - 1 week
[2024-03-01 08:26] LABS: Alanine Aminotransferase 23 U/L (14-59); Albumin Globulin Ratio 0.8; Albumin Level 3.2 g/dL (3.4-5.0); Alkaline Phosphatase 126 U/L (46-116); Anion Gap 13.9; Aspartate Amino Transferase 16 U/L (15-37); BUN Creatinine Ratio 13.8; Bilirubin Total 0.6 mg/dL (0.2-1.0); Carbon Dioxide 27.1 mmol/L (21.0-32.0); Chloride 105 mmol/L (98-107); Estimated GFR (African America >60 (>=60); Estimated GFR (Non-African Ame >60 (>=60); Globulin 3.8 g/dL; Glucose 106 mg/dL (74-106); Sodium 142 mmol/L (136-145)
[2024-03-01 09:18] VITALS: BP 122/82; PULSE 72; O2SAT 98
== END 2024-03-01 09:19 | disposition home or self-care (01) ==
PROVIDERS: Emergency Provider Emergency Medicine Emergency Medical Services; PCP Nurse Practitioner Family
DX: O99.63 Diseases of the digestive system complicating the puerperium (principal); K82.8 Other specified diseases of gallbladder
CPT/HCPCS: 36415; 80053; 83690; 85025; 96374; 96375; 99284; J1170; J1885; J2405

== ENCOUNTER 2024-03-04 12:12 | Outpatient (OUT) | payer OTHER, SELFPAY ==
--- OUTSIDE RECORDS SUMMARY | 2024-03-04 12:25 | XMS_ITS | CCD ---
Author Organization [facility] Care Team Providers Care Director Business Development Name Role Phone Farrah Garcia Primary Care Provider [phone] VIBHA JOHNSON Attending Unavailable VIBHA JOHNSON Referring Unavailable FARRAH GARCIA Primary Care Unavailable Kelli Oliver Primary Care Physician [phone] MISC, DR LORENZANA Primary Care Unavailable MANOJ [...] DR LORENZANA Primary Care Unavailable DAMIAN, DR LYAL Sanchez Consulting Unavailable DAMIAN, DR LYLA Sanchez [...] JUSTEN, JOSE MIGUEL Attending Unavailable JUSTEN, JOSE IMGUEL Attending Unavailable JUSTEN, JOSE MIGUEL Attending Unavailable JUSTEN, JOSE MIGUEL Attending Unavailable JUSTEN, JOSE MIGUEL Attending Unavailable MICHAEL CHAN Attending Unavailable JUSTEN, JOSE MIGUEL Attending Unavailable JUSTEN, JOSE MIGUEL Attending Unavailable JUSTEN, JOSE MIGUEL Attending Unavailable JANIE THEODORE Attending Unavailable Allergies Allergy Classification Reported Allergen(s) Allergy Type Date of Onset Reaction(s) Facility Unclassified (1 source) ADHESIVE TAPE-SILICONES; 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: [ADHESIVE TAPE-SILICONES] Propensity to adverse reactions to drug (disorder) 4 [facility] Repository (1 source) [facility] Drug Allergy 9 [facility] Repository (2 sources) Wound Dressing Adhesive Drug [...] 02-15-2022 Episodic Other aftercare (1 source) Other assisted (current) 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; 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: [OTH [facility] CURRENT DRUG THERAPY] Onset: 02-05-2022 Episodic Other [...] WITH AUTO DIFFon BASOPHILS ABSOLUTE AUTO 0.1 [facility] Basophils/100 WBC (Bld) 0.7 % 0.2 - 2.0 % [facility] Eosinophils/100 WBC (Bld) 2.6 % 0.9 - 7.0 % [facility] Erythrocyte distribution width (RBC) [Ratio] 13.4 % 11.0 - 15.0 % [facility] Hematocrit (Bld) [Volume fraction] 39.0 % 36.0 - 48.0 % [facility] Hemoglobin (Bld) [Mass/Vol] 12.8 g/dL 12.0 - 16.0 g/dL [facility] IMMATURE GRANULOCYTES ABS AUTO 0.01 [facility] Immature granulocytes/100 WBC (Bld) 0.1 % 0.0 - 0.5 % [facility] LYMPHOCYTES ABSOLUTE AUTO 2.2 [facility] Lymphocytes/100 WBC (Bld) 26.1 % 20.5 - 60.0 % [facility] MCH (RBC) [Entitic mass] 28.6 pg 26.7 - 34.0 pg [facility] MCHC (RBC) [Mass/Vol] 32.8 g/dL 29.9 - 35.2 g/dL [facility] MCV (RBC) [Entitic vol] 87.2 fL 81.0 - 99.0 fL [facility] MONOCYTES ABSOLUTE AUTO 0.5 [facility] Monocytes/100 WBC (Bld) 5.7 % 1.7 - 12.0 % [facility] NEUTROPHILS ABSOLUTE AUTO 5.5 [facility] Neutrophils/100 WBC (Bld) 64.8 % 43.0 - 75.0 % [facility] Platelet mean volume (Bld) [Entitic vol] 10.1 fL 9.5 - 13.5 fL [facility] TBH EO # 0.2 [facility] PLT 340 [facility] RBC 4.47 [facility] WBC 8.4 [facility] HCG ( test) Ql (U)o n 07-19-2023 Interpretation and review of laboratory results Abnormal [facility] Preg Test, Ur Positive [facility] Urinalysis macro (dipstick) panel (U)on 07-19-2023 Bilirubin, UA Negative Negative - 4(70) +++ mg/dL [facility] Blood, UA Positive Negative - 50 Anselmo/mcL [facility] Comment on above: moderate Clarity, UA Clear [facility] Color, UA Collin [facility] Glucose, UA Negative Negative - 1999(110) ++++ mg/dL [facility] Interpretation and review of laboratory results Abnormal [facility] Ketones, UA Positive Negative - 160(16) ++++ mg/dL [facility] Comment on above: trace Leukocytes, UA Positive Negative - 500+++ Monik/mcL [facility] Comment on above: small Nitrite, UA Negative Negative - Positive [facility] pH, UA 6.0 5 - 9 [facility] Protein, UA Positive Negative - 1999(20) ++++ mg/dL [facility] Comment on above: 30 Spec Grav, UA 1.030 1 - 1.03 [facility] Urobilinogen, UA 1.0 0.2 - 12 mg/dL [facility] In office Testingon 09-07-19 In office Testing [id number] 0 [id number]# 1.00CD:127 Normal [facility] CBC AUTO DIFFon 07-30-2022 BASO # 0.1 103/ul Normal 0.0-0.1 [facility] Comment on above: Performed By: #### U RCX #### [facility] Laboratory [address] [place] [address] Dr. Caitlin Martinez Basophils/100 WBC (Bld) 1.1 % Normal 0.2-2.0 [facility] Comment on above: Performed By: #### U RCX #### [facility] Laboratory [address] [place] [address] Dr. Caitlin Martinez EO # 0.3 103/ul Normal 0.0-0.7 [facility] Comment on above: Performed By: #### U RCX #### [facility] Laboratory [address] [place] [address] Dr. Caitlin Martinez Eosinophils/100 WBC (Bld) 4.7 % Normal 0.9-7.0 [facility] Comment on above: Performed By: #### U RCX #### [facility] Laboratory [address] [place] [address] Dr. Caitlin Martinez Erythrocyte distribution width (RBC) [Ratio] 14.7 % Normal 11.0-15.0 [facility] Comment on above: Performed By: #### U RCX #### [facility] Laboratory [address] [place] [address] Dr. Caitlin Martinez Hematocrit (Bld) [Volume fraction] 39.3 % Normal 36.0-48.0 [facility] Comment on above: Performed By: #### U RCX #### [facility] Laboratory [address] [place] [address] Dr. Caitlin Martinez Hemoglobin (Bld) [Mass/Vol] 12.7 g/dL Normal 12.0-16.0 [facility] Comment on above: Performed By: #### U RCX #### [facility] Laboratory [address] [address] [address] Caitlin Martinez IG # 0.02 10e3/ul Normal 0.00-0.03 [facility] Comment on above: Performed By: #### U RCX #### [facility] Laboratory [address] [place] [address] Dr. Caitlin Martinez IG % 0.3 % Normal 0.0-0.5 [facility] Comment on above: Performed By: #### U RCX #### [facility] Laboratory [address] [place] [address] Dr. Caitlin Martinez LYMPH # 2.5 103/ul Normal 1.2-3.8 [facility] Comment on above: Performed By: #### U RCX #### [facility] Laboratory [address] [place] [address] Dr. Caitlin Martinez Lymphocytes/100 WBC (Bld) 34.5 % Normal 20.5-60.0 [facility] Comment on above: Performed By: #### U RCX #### [facility] Laboratory [address] [place] [address] Dr. Caitlin Martinez MANUAL DIFF REQ NO Normal [facility] Comment on above: Performed By: #### U RCX #### [facility] Laboratory [address] [place] [address] Dr. Caitlin Martinez MCH (RBC) [Entitic mass] 27.3 pg Normal 26.7-34.0 [facility] Comment on above: Performed By: #### U RCX #### [facility] Laboratory [address] [place] [address] Dr. Caitlin Martinez MCHC (RBC) [Mass/Vol] 32.3 g/dL Normal 29.9-35.2 [facility] Comment on above: Performed By: #### U RCX #### [facility] Laboratory [address] [place] [address] Dr. Caitlin Martinez MCV (RBC) [Entitic vol] 84.5 fL Normal 81.0-99.0 [facility] Comment on above: Performed By: #### U RCX #### [facility] Laboratory [address] [address] [address] Caitlin Martinez MONO # 0.5 103/ul Normal 0.3-0.8 [facility] Comment on above: Performed By: #### U RCX #### [facility] Laboratory [address] [address] [address] Caitiln Martinez Monocytes/100 WBC (Bld) 7.3 % Normal 1.7-12.0 [facility] Comment on above: Performed By: #### U RCX #### [facility] Laboratory [address] [place] [address] Dr. Caitlin Martinez NEUT # 3.8 103/ul Normal 1.4-6.5 [facility] Comment on above: Performed By: #### U RCX #### [facility] Laboratory [address] [place] [address] Dr. Caitlin Martinez Neutrophils/100 WBC (Bld) 52.1 % Normal 43.0-75.0 [facility] Comment on above: Performed By: #### U RCX #### [facility] Laboratory [address] [place] [address] Dr. Caitlin Martinez Platelet mean volume (Bld) [Entitic vol] 9.0 fL Critically low 9.5-13.5 [facility] Comment on above: Performed By: #### U RCX #### [facility] Laboratory [address] [place] [address] Dr. Caitlin Martinez PLT 368 103/ul Normal 150-450 [facility] Comment on above: Performed By: #### U RCX #### [facility] Laboratory [address] [place] [address] Dr. Caitlin Martinez RBC 4.65 106/ul Normal 4.20-5.40 [facility] Comment on above: Performed By: #### U RCX #### [facility] Laboratory [address] [place] [address] Dr. Caitlin Martinez WBC 7.2 103/ul Normal 4.0-11.0 [facility] Comment on above: Performed By: #### U RCX #### [facility] Laboratory [address] [address] [address] Caitlin Martinez IRONon 07-30-2022 Iron [Mass/Vol] 43.0 ug/dL Critically low 50.0-170.0 [facility] Comment on above: Performed By: #### U RCX #### [facility] Laboratory [address] [place] [address] Dr. Caitlin Martinez PAP ACOG PANEL 2: 21 to 30on 07-30-2022 . . Normal [facility] Comment on above: Performed By: #### U RCX #### [facility] Laboratory [address] [place] [address] Dr. Caitlin Martinez Age Gdln ACOG Testing - [facility] Comment on above: Performed By: #### U RCX #### [facility] Laboratory [address] [place] [address] Dr. Caitlin Martinez DIAGNOSIS: Comment [facility] Comment on above: Result Comment: NEGA TIVE FOR INTRAEPITHELIAL LESION OR MALIGNANCY. Performed By: #### U RCX #### [facility] Laboratory [address] [place] [address] Dr. Caitlin Martinez Methodology: Comment [facility] Comment on above: Result Comment: This liquid based ThinPrep(R) pap test was screened with the use of an image guided system. Performed By: #### U RCX #### [facility] Laboratory [address] [place] [address] Dr. Caitlin Martinez Note: Comment [facility] Comment on above: Result Comment: The Pap smear is a screening test designed to aid in the detection of premalignant and malignant conditions of the uterine cervix. It is not a diagnostic procedure and should not be used as the sole means of detecting cervical cancer. Both false-positive and false-negative reports do occur. . Performed By: #### U RCX #### [facility] Laboratory [address] [place] [address] Dr. Caitlin Martinez Performed by: Comment Normal [facility] Comment on above: Result Comment: Bhavna Cormier, Container Filler (ASCP) Performed By: #### U RCX #### [facility] Laboratory [address] [place] [address] Dr. Caitlin Martinez Reflex Criteria: Comment Normal [facility] Comment on above: Result Comment: The HPV DNA reflex criteria were not met with this specimen result therefore, no HPV testing was performed. . Performed By: #### U RCX #### [facility] Laboratory [address] [place] [address] Dr. Caitlin Martinez Specimen adequacy: Comment Normal [facility] Comment on above: Result Comment: Sati sfactory for evaluation. Endocervical and/or squamous metaplastic cells (endocervical component) are present. Performed By: #### U RCX #### [facility] Laboratory [address] [place] [address] Dr. Caitlin Martinez INSULINon 04-19-2022 Insulin 9.1 uIU/mL Normal 2.6-24.9 [facility] Comment on above: Performed By: #### I HORACIO #### [facility] Laboratory [address] [place] [address] Dr. Caitlin Martinez CBC AUTO DIFFon 04-18-2022 BASO # 0.1 103/ul Normal 0.0-0.1 [facility] Comment on above: Performed By: #### U RCX #### [facility] [address] [place] [address] Dr. Caitlin Martinez Basophils/100 WBC (Bld) 1.0 % Normal 0.2-2.0 [facility] Comment on above: Performed By: #### U RCX #### [facility] Laboratory [address] [place] [address] Dr. Caitlin Martinez EO # 0.3 103/ul Normal 0.0-0.7 [facility] Comment on above: Performed By: #### U RCX #### [facility] [address] [place] [address] Dr. Caitlin Martinez Eosinophils/100 WBC (Bld) 4.1 % Normal 0.9-7.0 [facility] Comment on above: Performed By: #### U RCX #### [facility] Laboratory [address] [place] [address] Dr. Caitlin Martinez Erythrocyte distribution width (RBC) [Ratio] 16.0 % Critically high 11.0-15.0 [facility] Comment on above: Performed By: #### U RCX #### [facility] Laboratory [address] [place] [address] Dr. Caitlin Martinez Hematocrit (Bld) [Volume fraction] 35.7 % Critically low 36.0-48.0 [facility] Comment on above: Performed By: #### U RCX #### [facility] [address] [place] [address] Dr. Caitlin Martinez Hemoglobin (Bld) [Mass/Vol] 10.9 g/dL Critically low 12.0-16.0 [facility] Comment on above: Performed By: #### U RCX #### [facility] Laboratory [address] [place] [address] Dr. Caitlin Martinez IG # 0.07 10e3/ul Critically high 0.00-0.[address] [facility] Comment on above: Performed By: #### U RCX #### [facility] Laboratory [address] [place] [address] Dr. Caitlin Martinez IG % 1.0 % Critically high 0.0-0.5 [facility] Comment on above: Performed By: #### U RCX #### [facility] Laboratory [address] [place] [address] Dr. Caitlin Martinez LYMPH # 2.3 103/ul Normal 1.2-3.8 [facility] Comment on above: Performed By: #### U RCX #### [facility] [address] [place] [address] Dr. Caitlin Martinez Lymphocytes/100 WBC (Bld) 31.4 % Normal 20.5-60.0 [facility] Comment on above: Performed By: #### U RCX #### [facility] Laboratory [address] [place] [address] Dr. Caitlin Martinez MANUAL DIFF REQ NO Normal [facility] Comment on above: Performed By: #### U RCX #### [facility] [address] [place] [address] Dr. Caitlin Martinez MCH (RBC) [Entitic mass] 24.8 pg Critically low 26.7-34.0 [facility] Comment on above: Performed By: #### U RCX #### [facility] Laboratory [address] [place] [address] Dr. Caitlin Martinez MCHC (RBC) [Mass/Vol] 30.5 g/dL Normal 29.9-35.2 [facility] Comment on above: Performed By: #### U RCX #### [facility] Laboratory [address] [place] [address] Dr. Caitlin Martinez MCV (RBC) [Entitic vol] 81.1 fL Normal 81.0-99.0 [facility] Comment on above: Performed By: #### U RCX #### [facility] Laboratory [address] [place] [address] Dr. Caitlin Martinez MONO # 0.5 103/ul Normal 0.3-0.8 [facility] Comment on above: Performed By: #### U RCX #### [facility] Laboratory [address] [place] [address] Dr. Caitlin Martinez Monocytes/100 WBC (Bld) 6.6 % Normal 1.7-12.0 [facility] Comment on above: Performed By: #### U RCX #### [facility] [address] [place] [address] Dr. Caitlin Martinez NEUT # 4.1 103/ul Normal 1.4-6.5 [facility] Comment on above: Performed By: #### U RCX #### [facility] Laboratory [address] [place] [address] Dr. Caitlin Martinez Neutrophils/100 WBC (Bld) 55.9 % Normal 43.0-75.0 [facility] Comment on above: Performed By: #### U RCX #### [facility] Laboratory [address] [place] [address] Dr. Caitlin Martinez Platelet mean volume (Bld) [Entitic vol] 9.4 fL Critically low 9.5-13.5 [facility] Comment on above: Performed By: #### U RCX #### [facility] Laboratory [address] [place] [address] Dr. Caitlin Martinez PLT 369 103/ul Normal 150-450 [facility] Comment on above: Performed By: #### U RCX #### [facility] Laboratory [address] [place] [address] Dr. Caitlin Martinez RBC 4.40 106/ul Normal 4.20-5.40 [facility] Comment on above: Performed By: #### U RCX #### [facility] Laboratory [address] [address] [address] Caitlin Martinez WBC 7.3 103/ul Normal 4.0-11.0 [facility] Comment on above: Performed By: #### U RCX #### [facility] Laboratory [address] [place] [address] Dr. Caitlin Martinez FREE THYROXINE INDEX T7on FTI 2.20 Normal 1.30-4.50 [facility] Comment on above: Performed By: #### I HORACIO #### [facility] Laboratory [address] [place] [address] Dr. Caitlin Martinez T3U 29.0 % Critically low 30.0-39.0 [facility] Comment on above: Performed By: #### I HORACIO #### [facility] Laboratory [address] [place] [address] Dr. Caitlin Martinez T4 [Mass/Vol] 7.60 ug/dL Normal 4.80-13.90 [facility] Comment on above: Performed By: #### I HORACIO #### [facility] Laboratory [address] [place] [address] Dr. Caitlin Martinez GLYCOHEMOGLOBIN A1Con 2021 ADA RECOMMENDATION SEE BELOW Normal [facility] Comment on above: Result Comment: ADA RECOMMENDED LIMIT 4.0 - 6.0 ADA THERAPEUTIC TARGET < 7.0 ACTION SUGGESTED > 7.0 Performed By: #### U RCX #### [facility] Laboratory [address] [place] [address] Dr. Caitlin Martinez Glucose [Mass/Vol] 97 mg/dL Normal [facility] Comment on above: Performed By: #### U RCX #### [facility] Laboratory [address] [address] [address] Caitlin Martinez HbA1c (Bld) [Mass fraction] 5.0 % Normal 4.5-6.2 [facility] Comment on above: Performed By: #### U RCX #### [facility] Laboratory [address] [place] [address] Dr. Caitlin Martinez IRONon 04-18-2022 Iron [Mass/Vol] 35.0 ug/dL Critically low 50.0-170.0 [facility] Comment on above: Performed By: #### I HORACIO #### [facility] Laboratory [address] [address] [address] Caitlin Martinez LIPID PROFILEon 04-18-2022 CHOL-HDL RATIO NORM SEE BELOW Normal [facility] Comment on above: Result Comment: 3.3 - 4.4 LOW RISK 4.4 - 7.1 AVERAGE RISK 7.1 - 11.0 MODERATE RISK >11.0 HIGH RISK Performed By: #### I HORACIO #### [facility] Laboratory [address] [place] [address] Dr. Caitlin Martinez Cholesterol [Mass/Vol] 221 mg/dL Critically high <=200 [facility] Comment on above: Performed By: #### I HORACIO #### [facility] Laboratory [address] [place] [address] Dr. Caitlin Martinez Cholesterol in HDL [Mass/Vol] 67 mg/dL Critically high 40-60 [facility] Comment on above: Performed By: #### I HORACIO #### [facility] [address] [address] [address] Caitlin Martinez Cholesterol in LDL [Mass/Vol] 142.4 mg/dL Normal [facility] Comment on above: Performed By: #### I HORACIO #### [facility] Laboratory [address] [address] [address] Caitlin Martinez Cholesterol.total/Cho lesterol in HDL [Mass ratio] 3.3 {ratio} Normal [facility] Comment on above: Performed By: #### I HORACIO #### [facility] [address] [address] [address] Caitlin Martinez HDL NORMAL > or = 60 mg/dl - LO W CARDIOVASCULAR RISK <40 mg/dl - HIGH CARDIOVASCULAR RISK Normal [facility] Comment on above: Performed By: #### I HORACIO #### [facility] [address] [place] [address] Dr. Caitlin Martinez LDL CALC NORMAL SEE BELOW Normal [facility] Comment on above: Result Comment: <100 mg/dl OPTIMAL 100 - 129 mg/dl NEAR OR ABOVE OPTIMAL 130 - 159 mg/dl BORDERLINE HIGH 160 - 189 mg/dl HIGH >190 mg/dl VERY HIGH Performed By: #### I HORACIO #### [facility] [address] [address] [address] Caitlin Martinez Triglyceride [Mass/Vol] 58 mg/dL Normal <=150 [facility] Comment on above: Performed By: #### I HORACIO #### [facility] [address] [place] [address] Dr. Caitlin Martinez VLDL CALC 11.6 mg/dL Normal [facility] Comment on above: Performed By: #### I HORACIO #### [facility] [address] [place] [address] Dr. Caitlin Martinez PROF 14(COMP METB)on 022 Albumin [Mass/Vol] 3.8 g/dL Normal 3.4-5.[address] [facility] Comment on above: Performed By: #### I HORACIO #### [facility] [address] [place] [address] Dr. Caitlin Martinez Albumin/Globulin [Mass ratio] 1.1 {ratio} Normal [facility] Comment on above: Performed By: #### I HORACIO #### [facility] [address] [place] [address] Dr. Caitlin Martinez ALP [Catalytic activity/Vol] 132 U/L Critically high 46-116 [facility] Comment on above: Performed By: #### I HORACIO #### [facility] [address] [place] [address] Dr. Caitlin Martinez ALT [Catalytic activity/Vol] 55 U/L Normal 14-59 [facility] Comment on above: Performed By: #### I HORACIO #### [facility] [address] [place] [address] Dr. Caitlin Martinez Anion gap [Moles/Vol] 12.6 mmol/L Normal [facility] Comment on above: Performed By: #### I HORACIO #### [facility] [address] [address] [address] Caitlin Martinez AST [Catalytic activity/Vol] 27 U/L Normal 15-37 [facility] Comment on above: Performed By: #### I HORACIO #### [facility] [address] [address] [address] Caitlin Martinez Bilirubin [Mass/Vol] 0.6 mg/dL Normal 0.2-1.0 [facility] Comment on above: Performed By: #### I HORACIO #### [facility] [facility] [address] [place] [address] Dr. Caitlin Martinez Calcium [Mass/Vol] 9.1 mg/dL Normal 8.5-10.[address] [facility] Comment on above: Performed By: #### I HORACIO #### [facility] [address] [address] [address] Caitlin Martinez Chloride [Moles/Vol] 106 mmol/L Normal 98-107 [facility] Comment on above: Performed By: #### I HORACIO #### [facility] [address] [address] [address] Caitlin Martinez CO2 [Moles/Vol] 26.5 mmol/L Normal 21.0-32.0 [facility] Comment on above: Performed By: #### I HORACIO #### [facility] [address] [address] [address] Caitlin Martinez Creatinine [Mass/Vol] 0.63 mg/dL Normal 0.55-1.02 [facility] Comment on above: Performed By: #### I HORACIO #### [facility] [address] [place] [address] Dr. Caitlin Martinez EGFR-AF GERMAN >60 Normal >=60 [facility] Comment on above: Performed By: #### I HORACIO #### [facility] [address] [address] [address] Caitlin Martinez EGFR-NON AF GERMAN >60 Normal >=60 [facility] Comment on above: Performed By: #### I HORACIO #### [facility] [address] [address] [address] Caitlin Martinez Globulin (S) [Mass/Vol] 3.6 g/dL Normal [facility] Comment on above: Performed By: #### I HORACIO #### [facility] [address] [address] [address] Caitlin Martinez Glucose [Mass/Vol] 98 mg/dL Normal 74-[address] [facility] Comment on above: Performed By: #### I HOARCIO #### [facility] [address] [address] [address] Caitlin Martinez Potassium [Moles/Vol] 4.1 mmol/L Normal 3.5-5.1 [facility] Comment on above: Performed By: #### I HORACIO #### [facility] [address] [place] [address] Dr. Caitlin Martinez Protein [Mass/Vol] 7.4 g/dL Normal 6.4-8.2 [facility] Comment on above: Performed By: #### I HORACIO #### [facility] [address] [address] [address] Caitlin Martinez Sodium [Moles/Vol] 141 mmol/L Normal 136-[address] [facility] Comment on above: Performed By: #### I HORACIO #### [facility] [address] [address] [address] Caitlin Martinez Urea nitrogen [Mass/Vol] 9.0 mg/dL Normal 7.0-18.0 [facility] Comment on above: Performed By: #### I HORACIO #### [facility] [address] [address] [address] Caitlin Martinez Urea nitrogen/Creatinine [Mass ratio] 14.3 mg/mg Normal [facility] Comment on above: Performed By: #### I HORACIO #### [facility] [address] [address] [address] Caitlin Martinez TSHon 04-18-2022 TSH 1.349 uIU/mL Normal 0.358-3.740 [facility] Comment on above: Performed By: #### I HORACIO #### [facility] [address] [place] [address] Dr. Caitlin Martinez ANTIBODY ID PANELon 02-15-20 22 ANTIBODY ID PANEL Antibody ID Anti-D Blood Bank Notes most likely due to Rhogam given on 12/01/21 Normal [facility] Comment on above: Performed By: #### D IRCMB, ABID #### [facility] [address] [address] [address] Caitlin Martinez CTA CHEST WO W [...] GAGANDEEP WHEELER Date: 2022-02-10 22:55 Normal [facility] CBC AUTO DIFFon 02-10-2022 BASO # 0.1 103/ul Normal 0.0-0.1 [facility] Comment on above: Performed By: #### C BC #### [facility] [address] [place] [address] Dr. Caitlin Martinez Basophils/100 WBC (Bld) 0.4 % Normal 0.2-2.0 [facility] Comment on above: Performed By: #### C BC #### [facility] [address] [place] [address] Dr. Caitlin Martinez EO # 0.5 103/ul Normal 0.0-0.7 [facility] Comment on above: Performed By: #### C BC #### [facility] [address] [address] [address] Caitlin Martinez Eosinophils/100 WBC (Bld) 4.2 % Normal 0.9-7.0 [facility] Comment on above: Performed By: #### C BC #### [facility] [address] [address] [address] Caitlin Martinez Erythrocyte distribution width (RBC) [Ratio] 14.7 % Normal 11.0-15.0 [facility] Comment on above: Performed By: #### C BC #### [facility] [address] [place] [address] Dr. Caitlin Martinez Hematocrit (Bld) [Volume fraction] 31.1 % Critically low 36.0-48.0 [facility] Comment on above: Performed By: #### C BC #### [facility] [address] [place] [address] Dr. Caitlin Martinez Hemoglobin (Bld) [Mass/Vol] 9.6 g/dL Critically low 12.0-16.0 [facility] Comment on above: Performed By: #### C BC #### [facility] [address] [place] [address] Dr. Caitlin Martinez IG # 0.28 10e3/ul Critically high 0.00-0.[address] [facility] Comment on above: Performed By: #### C BC #### [facility] [address] [place] [address] Dr. Caitlin Martinez IG % 2.3 % Critically high 0.0-0.5 [facility] Comment on above: Performed By: #### C BC #### [facility] [address] [place] [address] Dr. Caitlin Martinez LYMPH # 3.3 103/ul Normal 1.2-3.8 [facility] Comment on above: Performed By: #### C BC #### [facility] [address] [place] [address] Dr. Caitlin Martinez Lymphocytes/100 WBC (Bld) 26.9 % Normal 20.5-60.0 [facility] Comment on above: Performed By: #### C BC #### [facility] [address] [place] [address] Dr. Caitlin Martinez MANUAL DIFF REQ NO Normal [facility] Comment on above: Performed By: #### C BC #### [facility] [address] [place] [address] Dr. Caitlin Martinez MCH (RBC) [Entitic mass] 26.2 pg Critically low 26.7-34.0 [facility] Comment on above: Performed By: #### C BC #### [facility] [address] [place] [address] Dr. Caitlin Martinez MCHC (RBC) [Mass/Vol] 30.9 g/dL Normal 29.9-35.2 [facility] Comment on above: Performed By: #### C BC #### [facility] [address] [place] [address] Dr. Caitlin Martinez MCV (RBC) [Entitic vol] 84.7 fL Normal 81.0-99.0 [facility] Comment on above: Performed By: #### C BC #### [facility] [address] [place] [address] Dr. Caitlin Martinez MONO # 1.1 103/ul Critically high 0.3-0.8 [facility] Comment on above: Performed By: #### C BC #### [facility] [address] [place] [address] Dr. Caitlin Martinez Monocytes/100 WBC (Bld) 8.7 % Normal 1.7-12.0 [facility] Comment on above: Performed By: #### C BC #### [facility] [address] [place] [address] Dr. Caitlin Martinez NEUT # 7.0 103/ul Critically high 1.4-6.5 [facility] Comment on above: Performed By: #### C BC #### [facility] [address] [place] [address] Dr. Caitlin Martinez Neutrophils/100 WBC (Bld) 57.5 % Normal 43.0-75.0 [facility] Comment on above: Performed By: #### C BC #### [facility] [address] [address] [address] Caitlin Martinez Platelet mean volume (Bld) [Entitic vol] 9.1 fL Critically low 9.5-13.5 [facility] Comment on above: Performed By: #### C BC #### [facility] [address] [address] [address] Caitlin Martinez PLT 437 103/ul Normal 150-450 [facility] Comment on above: Performed By: #### C BC #### [facility] [address] [address] [address] Caitlin Martinez RBC 3.67 106/ul Critically low 4.20-5.40 [facility] Comment on above: Performed By: #### C BC #### [facility] [address] [address] [address] Caitlin Martinez WBC 12.3 103/ul Critically high 4.0-11.0 [facility] Comment on above: Performed By: #### C BC #### [facility] [address] [address] [address] Caitlin Martinez Covid-19 PCR ([facility])on 01-16 SARS-CoV-2 (COVID-19) RNA JONATAN+probe Ql (Unsp spec) Not detected Normal NOT DETECTED [facility] Comment on above: Result Comment: When diagnostic [...] for this test is supported by the Student Officer of Health and Human Service's declaration that [...] used). Performed By: #### C VDTB #### [facility] [address] [place] [address] Dr. Caitlin Martinez PROF 14(COMP METB)on 022 Albumin [Mass/Vol] 2.1 g/dL Critically low 3.4-5.0 [facility] Comment on above: Performed By: #### U RCX #### [facility] [address] [place] [address] Dr. Caitlin Martinez Albumin/Globulin [Mass ratio] 0.5 {ratio} Normal [facility] Comment on above: Performed By: #### U RCX #### [facility] [address] [place] [address] Dr. Caitlin Martinez ALP [Catalytic activity/Vol] 202 U/L Critically high 46-116 [facility] Comment on above: Performed By: #### U RCX #### [facility] [address] [place] [address] Dr. Caitlin Martinez ALT [Catalytic activity/Vol] 20 U/L Normal 14-59 [facility] Comment on above: Performed By: #### U RCX #### [facility] [address] [place] [address] Dr. Caitlin Martinez Anion gap [Moles/Vol] 11.6 mmol/L Normal [facility] Comment on above: Performed By: #### U RCX #### [facility] [address] [place] [address] Dr. Caitlin Martinez AST [Catalytic activity/Vol] 17 U/L Normal 15-37 [facility] Comment on above: Performed By: #### U RCX #### [facility] [address] [place] [address] Dr. Caitlin Martinez Bilirubin [Mass/Vol] 0.3 mg/dL Normal 0.2-1.0 [facility] Comment on above: Performed By: #### U RCX #### [facility] [address] [place] [address] Dr. Caitlin Martinez Calcium [Mass/Vol] 9.2 mg/dL Normal 8.5-10.[address] [facility] Comment on above: Performed By: #### U RCX #### [facility] [address] [place] [address] Dr. Caitlin Martinez Chloride [Moles/Vol] 104 mmol/L Normal 98-107 [facility] Comment on above: Performed By: #### U RCX #### [facility] [address] [place] [address] Dr. Caitlin Martinez CO2 [Moles/Vol] 26.9 mmol/L Normal 21.0-32.0 [facility] Comment on above: Performed By: #### U RCX #### [facility] [address] [place] [address] Dr. Caitlin Martinez Creatinine [Mass/Vol] 0.56 mg/dL Normal 0.55-1.02 [facility] Comment on above: Performed By: #### U RCX #### [facility] [address] [place] [address] Dr. Caitlin Martinez EGFR-AF GERMAN >60 Normal >=60 [facility] Comment on above: Performed By: #### U RCX #### [facility] [address] [place] [address] Dr. Caitlin Martinez EGFR-NON AF GERMAN >60 Normal >=60 [facility] Comment on above: Performed By: #### U RCX #### [facility] [address] [place] [address] Dr. Caitlin Martinez Globulin (S) [Mass/Vol] 4.4 g/dL Normal [facility] Comment on above: Performed By: #### U RCX #### [facility] [address] [place] [address] Dr. Caitlin Martinez Glucose [Mass/Vol] 108 mg/dL Critically high 74-106 [facility] Comment on above: Performed By: #### U RCX #### [facility] [address] [place] [address] Dr. Caitlin Martinez Potassium [Moles/Vol] 3.5 mmol/L Normal 3.5-5.1 [facility] Comment on above: Performed By: #### U RCX #### [facility] [address] [address] [address] Caitlin Martinez Protein [Mass/Vol] 6.5 g/dL Normal 6.4-8.2 [facility] Comment on above: Performed By: #### U RCX #### [facility] [address] [address] [address] Caitlin Martinez Sodium [Moles/Vol] 139 mmol/L Normal 136-145 [facility] Comment on above: Performed By: #### U RCX #### [facility] [address] [address] [address] Caitlin Martinez Urea nitrogen [Mass/Vol] 7.0 mg/dL Normal 7.0-18.0 [facility] Comment on above: Performed By: #### U RCX #### [facility] [address] [address] [address] Caitlin Martinez Urea nitrogen/Creatinine [Mass ratio] 12.5 mg/mg Normal [facility] Comment on above: Performed By: #### U RCX #### [facility] [address] [address] [address] Caitlin Martinez TROPONIN, HIGH SENSITIVITYon 02-10-2022 HSTROP <4.0 Normal 4.0-51.3 [facility] Comment on above: Result Comment: CUT- OFF POINTS HAVE BEEN ESTABLISHED BASED ON THE FOURTH UNIVERSAL DEFINITIONS OF MYOCARDIAL INFARCTION. THE UPPER REFERENCE LIMIT (URL) OF TROPONIN, DEFINED THE 99TH PERCENTILE OF cTnI DISTRIBUTION IN A REFERENCE POPULATION, HAS BEEN CONFIRMED THE DECISION THRESHOLD FOR RI DIAGNOSIS. Performed By: #### U RCX #### [facility] [address] [address] [address] Caitlin Martinez CBC AUTO DIFFon 02-09-2022 BASO # 0.1 103/ul Normal 0.0-0.1 [facility] Comment on above: Performed By: #### U RCX #### [facility] [address] [address] [address] Caitlin Martinez Basophils/100 WBC (Bld) 0.6 % Normal 0.2-2.0 [facility] Comment on above: Performed By: #### U RCX #### [facility] [address] [place] [address] Dr. Caitlin Martinez EO # 0.3 103/ul Normal 0.0-0.7 [facility] Comment on above: Performed By: #### U RCX #### [facility] [address] [place] [address] Dr. Caitlin Martinez Eosinophils/100 WBC (Bld) 2.3 % Normal 0.9-7.0 [facility] Comment on above: Performed By: #### U RCX #### [facility] [address] [place] [address] Dr. Caitlin Martinez Erythrocyte distribution width (RBC) [Ratio] 14.6 % Normal 11.0-15.0 [facility] Comment on above: Performed By: #### U RCX #### [facility] [address] [place] [address] Dr. Caitlin Martinez Hematocrit (Bld) [Volume fraction] 28.8 % Critically low 36.0-48.0 [facility] Comment on above: Performed By: #### U RCX #### [facility] [address] [place] [address] Dr. Caitlin Martinez Hemoglobin (Bld) [Mass/Vol] 9.0 g/dL Critically low 12.0-16.0 [facility] Comment on above: Performed By: #### U RCX #### [facility] [address] [place] [address] Dr. Caitlin Martinez IG # 0.20 10e3/ul Critically high 0.00-0.[address] [facility] Comment on above: Performed By: #### U RCX #### [facility] [address] [place] [address] Dr. Caitlin Martinez IG % 1.5 % Critically high 0.0-0.5 [facility] Comment on above: Performed By: #### U RCX #### [facility] [address] [place] [address] Dr. Caitlin Martinez LYMPH # 3.0 103/ul Normal 1.2-3.8 [facility] Comment on above: Performed By: #### U RCX #### [facility] [address] [place] [address] Dr. Caitlin Martinez Lymphocytes/100 WBC (Bld) 22.2 % Normal 20.5-60.0 [facility] Comment on above: Performed By: #### U RCX #### [facility] [address] [place] [address] Dr. Caitlin Martinez MANUAL DIFF REQ NO Normal [facility] Comment on above: Performed By: #### U RCX #### [facility] [address] [place] [address] Dr. Caitlin Martinez MCH (RBC) [Entitic mass] 26.2 pg Critically low 26.7-34.0 [facility] Comment on above: Performed By: #### U RCX #### [facility] [address] [place] [address] Dr. Caitlin Martinez MCHC (RBC) [Mass/Vol] 31.3 g/dL Normal 29.9-35.2 [facility] Comment on above: Performed By: #### U RCX #### [facility] [address] [place] [address] Dr. Caitlin Martinez MCV (RBC) [Entitic vol] 83.7 fL Normal 81.0-99.0 [facility] Comment on above: Performed By: #### U RCX #### [facility] [address] [place] [address] Dr. Caitlin Martinez MONO # 1.3 103/ul Critically high 0.3-0.8 [facility] Comment on above: Performed By: #### U RCX #### [facility] [address] [place] [address] Dr. Caitlin Martinez Monocytes/100 WBC (Bld) 9.8 % Normal 1.7-12.0 [facility] Comment on above: Performed By: #### U RCX #### [facility] [address] [place] [address] Dr. Caitlin Martinez NEUT # 8.5 103/ul Critically high 1.4-6.5 [facility] Comment on above: Performed By: #### U RCX #### [facility] [address] [place] [address] Dr. Caitlin Martinez Neutrophils/100 WBC (Bld) 63.6 % Normal 43.0-75.0 [facility] Comment on above: Performed By: #### U RCX #### [facility] [address] [place] [address] Dr. Caitlin Martinez Platelet mean volume (Bld) [Entitic vol] 9.1 fL Critically low 9.5-13.5 [facility] Comment on above: Performed By: #### U RCX #### [facility] [address] [place] [address] Dr. Caitlin Martinez PLT 355 103/ul Normal 150-450 [facility] Comment on above: Performed By: #### U RCX #### [facility] [address] [place] [address] Dr. Caitlin Martinez RBC 3.44 106/ul Critically low 4.20-5.40 [facility] Comment on above: Performed By: #### U RCX #### [facility] [address] [place] [address] Dr. Caitlin Martinez WBC 13.3 103/ul Critically high 4.0-11.0 [facility] Comment on above: Performed By: #### U RCX #### [facility] [address] [place] [address] Dr. Caitlin Martinez SCREENon 02-09-2022 SCREEN Negative Normal [facility] Comment on above: Performed By: #### F ETSCRN #### [facility] [address] [place] [address] Dr. Caitlin Martinez CBC AUTO DIFFon 02-08-2022 BASO # 0.1 103/ul Normal 0.0-0.1 [facility] Comment on above: Performed By: #### U RCX #### [facility] [address] [place] [address] Dr. Caitlin Martinez Basophils/100 WBC (Bld) 0.4 % Normal 0.2-2.0 [facility] Comment on above: Performed By: #### U RCX #### [facility] [address] [place] [address] Dr. Caitlin Martinez EO # 0.3 103/ul Normal 0.0-0.7 [facility] Comment on above: Performed By: #### U RCX #### [facility] [address] [place] [address] Dr. Caitlin Martinez Eosinophils/100 WBC (Bld) 2.6 % Normal 0.9-7.0 [facility] Comment on above: Performed By: #### U RCX #### [facility] [address] [place] [address] Dr. Caitlin Martinez Erythrocyte distribution width (RBC) [Ratio] 14.7 % Normal 11.0-15.0 [facility] Comment on above: Performed By: #### U RCX #### [facility] [address] [place] [address] Dr. Caitlin Martinez Hematocrit (Bld) [Volume fraction] 30.6 % Critically low 36.0-48.0 [facility] Comment on above: Performed By: #### U RCX #### [facility] [address] [place] [address] Dr. Caitlin Martinez Hemoglobin (Bld) [Mass/Vol] 9.7 g/dL Critically low 12.0-16.0 [facility] Comment on above: Performed By: #### U RCX #### [facility] [address] [place] [address] Dr. Caitlin Martinez IG # 0.15 10e3/ul Critically high 0.00-0.[address] [facility] Comment on above: Performed By: #### U RCX #### [facility] [address] [place] [address] Dr. Caitlin Martinez IG % 1.3 % Critically high 0.0-0.5 [facility] Comment on above: Performed By: #### U RCX #### [facility] [address] [place] [address] Dr. Caitlin Martinez LYMPH # 2.8 103/ul Normal 1.2-3.8 [facility] Comment on above: Performed By: #### U RCX #### [facility] [address] [place] [address] Dr. Caitlin Martinez Lymphocytes/100 WBC (Bld) 24.8 % Normal 20.5-60.0 [facility] Comment on above: Performed By: #### U RCX #### [facility] [address] [place] [address] Dr. Caitlin Martinez MANUAL DIFF REQ NO Normal [facility] Comment on above: Performed By: #### U RCX #### [facility] [address] [place] [address] Dr. Caitlin Martinez MCH (RBC) [Entitic mass] 26.6 pg Critically low 26.7-34.0 [facility] Comment on above: Performed By: #### U RCX #### [facility] [address] [place] [address] Dr. Caitlin Martinez MCHC (RBC) [Mass/Vol] 31.7 g/dL Normal 29.9-35.2 [facility] Comment on above: Performed By: #### U RCX #### [facility] [address] [place] [address] Dr. Caitlin Martinez MCV (RBC) [Entitic vol] 83.8 fL Normal 81.0-99.0 [facility] Comment on above: Performed By: #### U RCX #### [facility] [facility] [address] [place] [address] Dr. Caitlin Martinez MONO # 1.0 103/ul Critically high 0.3-0.8 [facility] Comment on above: Performed By: #### U RCX #### [facility] [address] [place] [address] Dr. Caitlin Martinez Monocytes/100 WBC (Bld) 8.7 % Normal 1.7-12.0 [facility] Comment on above: Performed By: #### U RCX #### [facility] [address] [place] [address] Dr. Caitlin Martinez NEUT # 7.0 103/ul Critically high 1.4-6.5 [facility] Comment on above: Performed By: #### U RCX #### [facility] [address] [place] [address] Dr. Caitlin Martinez Neutrophils/100 WBC (Bld) 62.2 % Normal 43.0-75.0 [facility] Comment on above: Performed By: #### U RCX #### [facility] [address] [place] [address] Dr. Caitlin Martinez Platelet mean volume (Bld) [Entitic vol] 9.0 fL Critically low 9.5-13.5 [facility] Comment on above: Performed By: #### U RCX #### [facility] [address] [place] [address] Dr. Caitlin Martinez PLT 373 103/ul Normal 150-450 [facility] Comment on above: Performed By: #### U RCX #### [facility] [address] [place] [address] Dr. Caitlin Martinez RBC 3.65 106/ul Critically low 4.20-5.40 [facility] Comment on above: Performed By: #### U RCX #### [facility] [address] [place] [address] Dr. Caitlin Martinez WBC 11.3 103/ul Critically high 4.0-11.0 [facility] Comment on above: Performed By: #### U RCX #### [facility] [address] [place] [address] Dr. Caitlin Martinez Covid-19 PCR ([facility])on 01-16 SARS-CoV-2 (COVID-19) RNA JONATAN+probe Ql (Unsp spec) Not detected Normal NOT DETECTED [facility] Comment on above: Result Comment: When diagnostic [...] for this test is supported by the [place] of Health and Human Service's declaration that [...] used). Performed By: #### C BC #### [facility] [address] [place] [address] Dr. Caitlin Martinez DIRECT COOMBSon 02-08-2022 DIRECT EDWINA Negative Normal [facility] Comment on above: Performed By: #### D IRCMB, ABID #### [facility] [address] [place] [address] Dr. Caitlin Martinez DRUG SCREEN RAPID (URINE)on 02-08-2022 AMP Negative Normal NEGATIVE [facility] Comment on above: Performed By: #### C BC #### [facility] [address] [place] [address] Dr. Caitlin Martinez BAR Negative Normal NEGATIVE [facility] Comment on above: Performed By: #### C BC #### [facility] [address] [place] [address] Dr. Caitlin Martinez BUP Negative Normal NEGATIVE [facility] Comment on above: Performed By: #### C BC #### [facility] [address] [place] [address] Dr. Caitlin Martinez BZO Negative Normal NEGATIVE [facility] Comment on above: Performed By: #### C BC #### [facility] [address] [place] [address] Dr. Caitlin Martinez JEANNA Negative Normal NEGATIVE [facility] Comment on above: Performed By: #### C BC #### [facility] [address] [place] [address] Dr. Caitlin Martinez CUT-OFFS SEE BELOW Normal [facility] Comment on above: Result Comment: AMP [...] ng/mL Performed By: #### C BC #### [facility] [address] [place] [address] Dr. Caitlin Martinez DRUG CUT HEADER DRUG CLASS TEST SYSTEM CUT-OFF CONCENTRATIONS ARE FOLLOWS: Normal [facility] Comment on above: Performed By: #### C BC #### [facility] [address] [place] [address] Dr. Caitlin Martinez mAMP Negative Normal NEGATIVE [facility] Comment on above: Performed By: #### C BC #### [facility] [address] [place] [address] Dr. Caitlin Martinez MTD Negative Normal NEGATIVE [facility] Comment on above: Performed By: #### C BC #### [facility] [address] [place] [address] Dr. Caitlin Martinez OPI Negative Normal NEGATIVE [facility] Comment on above: Performed By: #### C BC #### [facility] [address] [place] [address] Dr. Caitlin Martinez OXY Negative Normal NEGATIVE [facility] Comment on above: Performed By: #### C BC #### [facility] [address] [place] [address] Dr. Caitlin Martinez PCP Negative Normal NEGATIVE [facility] Comment on above: Performed By: #### C BC #### [facility] [address] [place] [address] Dr. Caitlin Martinez PPX Negative Normal NEGATIVE [facility] Comment on above: Performed By: #### C BC #### [facility] [address] [place] [address] Dr. Caitlin Martinez TCA Negative Normal NEGATIVE [facility] Comment on above: Performed By: #### C BC #### [facility] [address] [place] [address] Dr. Caitlin Martinez THC Negative Normal NEGATIVE [facility] Comment on above: Performed By: #### C BC #### [facility] [address] [place] [address] Dr. Caitlin Martinez TYPE AND SCREENon 02-08-2022 TYPE AND SCREEN Negative Normal [facility] Comment on above: Performed By: #### I HORACIO #### [facility] [address] [place] [address] Dr. Caitlin Martinez US PREG BIOPHY W [...] DAVID BLACKMON Date: 2022-02-05 16:28 Normal [facility] AMNISUREon 01-25-2022 AMNISURE Negative Normal NEGATIVE [facility] Comment on above: Performed By: #### A MNI #### [facility] [address] [place] [address] Dr. Caitlin Martinez CULTURE URINEon 01-25-2022 CULTURE URINE Culture Observations : No growth Normal [facility] Comment on above: Performed By: #### U RCX #### [facility] [address] [place] [address] Dr. Caitlin Martinez UA (CLEAN/CATCH) CHILD CARE LEAD TEACHER/MICRO I F IND.on 01-25-2022 Bilirubin Ql (U) Negative Normal NEGATIVE [facility] Comment on above: Performed By: #### C VDTBH #### [facility] [address] [place] [address] Dr. Caitlin Martinez Clarity (U) SL CLOUDY Abnormal CLEAR [facility] Comment on above: Performed By: #### C VDTBH #### [facility] [address] [place] [address] Dr. Caitlin Martinez Color (U) LT. YELLOW Normal YELLOW [facility] Comment on above: Performed By: #### C VDTBH #### [facility] [address] [place] [address] Dr. Caitlin Martinez Glucose Ql (U) Negative Normal NEGATIVE [facility] Comment on above: Performed By: #### C VDTBH #### [facility] [address] [place] [address] Dr. Caitlin Martinez Hemoglobin Ql (U) TRACE-INTACT Abnormal NEGATIVE [facility] Comment on above: Performed By: #### C VDTBH #### [facility] [address] [place] [address] Dr. Caitlin Martinez Ketones Ql (U) Negative Normal NEGATIVE [facility] Comment on above: Performed By: #### C VDTBH #### [facility] [address] [place] [address] Dr. Caitlin Martinez LEUKOCYTES TRACE Abnormal NEGATIVE [facility] Comment on above: Performed By: #### C VDTBH #### [facility] [address] [place] [address] Dr. Caitlin Martinez Nitrite Ql (U) Negative Normal NEGATIVE [facility] Comment on above: Performed By: #### C VDTBH #### [facility] [address] [place] [address] Dr. Caitlin Martinez pH (U) 6.5 [pH] Normal 5-9 [facility] Comment on above: Performed By: #### C VDTBH #### [facility] [address] [place] [address] Dr. Caitlin Martinez SPEC GRAVITY 1.020 Normal 1.005-<=1.025 [facility] Comment on above: Performed By: #### C VDTBH #### [facility] [address] [place] [address] Dr. Caitlin Martinez UA PROTEIN Negative Normal NEGATIVE/ TRACE [facility] Comment on above: Performed By: #### C VDTBH #### [facility] [address] [place] [address] Dr. Caitlin Martinez UR MICRO IND INDICATED Normal [facility] Comment on above: Performed By: #### C VDTBH #### [facility] [address] [place] [address] Dr. Caitlin Martinez Urobilinogen Qn (U) 0.2 {Barbara'U}/dL Normal 0.2 - 1. 0 [facility] Comment on above: Performed By: #### C VDTBH #### [facility] [address] [place] [address] Dr. Caitlin Martinez URINE MICROSCOPIC ONLYon BACTERIA MODERATE Abnormal NONE SEEN [facility] Comment on above: Performed By: #### C VDTBH #### [facility] [address] [place] [address] Dr. Caitlin Martinez Bacteria identified Cx Nom (U) INDICATED Normal [facility] Comment on above: Performed By: #### C VDTBH #### [facility] [address] [place] [address] Dr. Caitlin Martinez CAST NONE SEEN Normal NONE SEEN [facility] Comment on above: Performed By: #### C VDTBH #### [facility] [address] [place] [address] Dr. Caitlin Martinez Crystals LM Nom (Urine sed) NONE SEEN Normal NONE SEEN [facility] Comment on above: Performed By: #### C VDTBH #### [facility] [address] [place] [address] Dr. Caitlin Martinez Epithelial cells LM Ql (Urine sed) FEW Abnormal NONE SEEN /RARE [facility] Comment on above: Performed By: #### C VDTBH #### [facility] [address] [place] [address] Dr. Caitlin Martinez MUCOUS TRACE Abnormal NONE SEEN [facility] Comment on above: Performed By: #### C VDTBH #### [facility] [address] [place] [address] Dr. Caitlin Martinez RBC 2-5 Abnormal 0-2 [facility] Comment on above: Performed By: #### C VDTBH #### [facility] [address] [place] [address] Dr. Caitlin Martinez WBC 0-2 Abnormal NONE SEEN [facility] Comment on above: Performed By: #### C VDTBH #### [facility] [address] [place] [address] Dr. Caitlin Martinez AMYLASEon 01-16-2022 Amylase [Catalytic activity/Vol] 49 U/L Normal 25-115 [facility] Comment on above: Performed By: #### C VDTBH #### [facility] [address] [place] [address] Dr. Caitlin Martinez BUNon 01-16-2022 Urea nitrogen [Mass/Vol] 3.0 mg/dL Critically low 7.0-18.0 [facility] Comment on above: Performed By: #### C BC #### [facility] [address] [place] [address] Dr. Caitlin Martinez CBC AUTO DIFFon 01-16-2022 BASO # 0.1 103/ul Normal 0.0-0.1 [facility] Comment on above: Performed By: #### U RCX #### [facility] [address] [place] [address] Dr. Caitlin Martinez Basophils/100 WBC (Bld) 0.6 % Normal 0.2-2.0 [facility] Comment on above: Performed By: #### U RCX #### [facility] [address] [place] [address] Dr. Caitlin Martinez EO # 0.3 103/ul Normal 0.0-0.7 [facility] Comment on above: Performed By: #### U RCX #### [facility] [address] [place] [address] Dr. Caitlin Martinez Eosinophils/100 WBC (Bld) 2.6 % Normal 0.9-7.0 [facility] Comment on above: Performed By: #### U RCX #### [facility] [address] [place] [address] Dr. Caitlin Martinez Erythrocyte distribution width (RBC) [Ratio] 14.4 % Normal 11.0-15.0 [facility] Comment on above: Performed By: #### U RCX #### [facility] [address] [place] [address] Dr. Caitlin Martinez Hematocrit (Bld) [Volume fraction] 28.4 % Critically low 36.0-48.0 [facility] Comment on above: Performed By: #### U RCX #### [facility] [address] [place] [address] Dr. Caitlin Martinez Hemoglobin (Bld) [Mass/Vol] 9.0 g/dL Critically low 12.0-16.0 [facility] Comment on above: Performed By: #### U RCX #### [facility] [address] [place] [address] Dr. Caitlin Martinez IG # 0.11 10e3/ul Critically high 0.00-0.[address] [facility] Comment on above: Performed By: #### U RCX #### [facility] [address] [place] [address] Dr. Caitlin Martinez IG % 1.1 % Critically high 0.0-0.5 [facility] Comment on above: Performed By: #### U RCX #### [facility] [address] [place] [address] Dr. Caitlin Martinez LYMPH # 2.2 103/ul Normal 1.2-3.8 [facility] Comment on above: Performed By: #### U RCX #### [facility] [address] [place] [address] Dr. Caitlin Martinez Lymphocytes/100 WBC (Bld) 21.0 % Normal 20.5-60.0 [facility] Comment on above: Performed By: #### U RCX #### [facility] [address] [place] [address] Dr. Caitlin Martinez MANUAL DIFF REQ NO Normal [facility] Comment on above: Performed By: #### U RCX #### [facility] [address] [place] [address] Dr. Caitlin Martinez MCH (RBC) [Entitic mass] 28.2 pg Normal 26.7-34.0 [facility] Comment on above: Performed By: #### U RCX #### [facility] [address] [address] [address] Caitlin Martinez MCHC (RBC) [Mass/Vol] 31.7 g/dL Normal 29.9-35.2 [facility] Comment on above: Performed By: #### U RCX #### [facility] [address] [place] [address] Dr. Caitlin Martinez MCV (RBC) [Entitic vol] 89.0 fL Normal 81.0-99.0 [facility] Comment on above: Performed By: #### U RCX #### [facility] [address] [place] [address] Dr. Caitlin Martinez MONO # 0.9 103/ul Critically high 0.3-0.8 [facility] Comment on above: Performed By: #### U RCX #### [facility] [address] [place] [address] Dr. Caitlin Martinez Monocytes/100 WBC (Bld) 8.9 % Normal 1.7-12.0 [facility] Comment on above: Performed By: #### U RCX #### [facility] [address] [place] [address] Dr. Caitlin Martinez NEUT # 6.8 103/ul Critically high 1.4-6.5 [facility] Comment on above: Performed By: #### U RCX #### [facility] [address] [place] [address] Dr. Caitlin Martinez Neutrophils/100 WBC (Bld) 65.8 % Normal 43.0-75.0 [facility] Comment on above: Performed By: #### U RCX #### [facility] [address] [place] [address] Dr. Caitlin Martinez Platelet mean volume (Bld) [Entitic vol] 8.6 fL Critically low 9.5-13.5 [facility] Comment on above: Performed By: #### U RCX #### [facility] [address] [address] [address] Caitlin Martinez PLT 322 103/ul Normal 150-450 [facility] Comment on above: Performed By: #### U RCX #### [facility] [address] [place] [address] Dr. Caitlin Martinez RBC 3.19 106/ul Critically low 4.20-5.40 [facility] Comment on above: Performed By: #### U RCX #### [facility] [address] [place] [address] Dr. Caitlin Martinez WBC 10.3 103/ul Normal 4.0-11.0 [facility] Comment on above: Performed By: #### U RCX #### [facility] [address] [place] [address] Dr. Caitlin Martinez CREATININEon 01-16-2022 Creatinine [Mass/Vol] 0.55 mg/dL Normal 0.55-1.02 [facility] Comment on above: Performed By: #### C VDTBH #### [facility] [address] [place] [address] Dr. Caitlin Martinez EGFR-AF GERMAN >60 Normal >=60 [facility] Comment on above: Performed By: #### C VDTBH #### [facility] [address] [place] [address] Dr. Caitlin Martinez EGFR-NON AF GERMAN >60 Normal >=60 [facility] Comment on above: Performed By: #### C VDTBH #### [facility] [address] [place] [address] Dr. Caitlin Martinez ELECTROLYTESon 01-16-2022 Anion gap [Moles/Vol] 13.6 mmol/L Normal [facility] Comment on above: Performed By: #### C VDTBH #### [facility] [address] [place] [address] Dr. Caitlin Martinez Chloride [Moles/Vol] 106 mmol/L Normal 98-107 [facility] Comment on above: Performed By: #### C VDTBH #### [facility] [address] [place] [address] Dr. Caitlin Martinez CO2 [Moles/Vol] 22.9 mmol/L Normal 21.0-32.0 [facility] Comment on above: Performed By: #### C VDTBH #### [facility] [address] [place] [address] Dr. Caitlin Martinez Potassium [Moles/Vol] 3.5 mmol/L Normal 3.5-5.1 [facility] Comment on above: Performed By: #### C VDTBH #### [facility] [address] [place] [address] Dr. Caitlin Martinez Sodium [Moles/Vol] 139 mmol/L Normal 136-[address] [facility] Comment on above: Performed By: #### C VDTBH #### [facility] [address] [place] [address] Dr. Caitlin Martinez LIPASEon 01-16-2022 Lipase [Catalytic activity/Vol] 66.0 U/L Critically low 73.0-393.0 [facility] Comment on above: Performed By: #### C BC #### [facility] [address] [place] [address] Dr. Caitlin RHODESOTon 01-16-2022 AST [Catalytic activity/Vol] 12 U/L Critically low 15-37 [facility] Comment on above: Performed By: #### C VDTBH #### [facility] [address] [place] [address] Dr. Caitlin Martinez SGPTon 01-16-2022 ALT [Catalytic activity/Vol] 9 U/L Critically low 14-59 [facility] Comment on above: Performed By: #### C VDTBH #### [facility] [address] [place] [address] Dr. Caitlin Martinez CBC AUTO DIFFon 01-15-2022 BASO # 0.1 103/ul Normal 0.0-0.1 [facility] Comment on above: Performed By: #### C VDTBH #### [facility] [address] [place] [address] Dr. Caitlin Martinez Basophils/100 WBC (Bld) 0.4 % Normal 0.2-2.0 [facility] Comment on above: Performed By: #### C VDTBH #### [facility] [address] [place] [address] Dr. Caitlin Martinez EO # 0.2 103/ul Normal 0.0-0.7 [facility] Comment on above: Performed By: #### C VDTBH #### [facility] [address] [place] [address] Dr. Caitlin Martinez Eosinophils/100 WBC (Bld) 1.4 % Normal 0.9-7.0 [facility] Comment on above: Performed By: #### C VDTBH #### [facility] [address] [place] [address] Dr. Caitlin Martinez Erythrocyte distribution width (RBC) [Ratio] 14.1 % Normal 11.0-15.0 [facility] Comment on above: Performed By: #### C VDTBH #### [facility] [address] [place] [address] Dr. Caitlin Martinez Hematocrit (Bld) [Volume fraction] 28.4 % Critically low 36.0-48.0 [facility] Comment on above: Performed By: #### C VDTBH #### [facility] [address] [place] [address] Dr. Caitlin Martinez Hemoglobin (Bld) [Mass/Vol] 9.0 g/dL Critically low 12.0-16.0 [facility] Comment on above: Performed By: #### C VDTBH #### [facility] [address] [place] [address] Dr. Caitlin Martinez IG # 0.18 10e3/ul Critically high 0.00-0.[address] [facility] Comment on above: Performed By: #### C VDTBH #### [facility] [address] [place] [address] Dr. Caitlin Martinez IG % 1.3 % Critically high 0.0-0.5 [facility] Comment on above: Performed By: #### C VDTBH #### [facility] [address] [place] [address] Dr. Caitlin Martinez LYMPH # 2.4 103/ul Normal 1.2-3.8 [facility] Comment on above: Performed By: #### C VDTBH #### [facility] [address] [place] [address] Dr. Caitlin Martinez Lymphocytes/100 WBC (Bld) 16.8 % Critically low 20.5-60.0 [facility] Comment on above: Performed By: #### C VDTBH #### [facility] [address] [place] [address] Dr. Caitlin Martinez MANUAL DIFF REQ NO Normal [facility] Comment on above: Performed By: #### C VDTBH #### [facility] [address] [place] [address] Dr. Caitlin Martinez MCH (RBC) [Entitic mass] 27.9 pg Normal 26.7-34.0 The [facility] Comment on above: Performed By: #### C VDTBH #### [facility] [address] [place] [address] Dr. Caitlin Martinez MCHC (RBC) [Mass/Vol] 31.7 g/dL Normal 29.9-35.2 The [facility] Comment on above: Performed By: #### C VDTBH #### [facility] [address] [place] [address] Dr. Caitlin Martinez MCV (RBC) [Entitic vol] 87.9 fL Normal 81.0-99.0 The [facility] Comment on above: Performed By: #### C VDTBH #### [facility] [address] [place] [address] Dr. Caitlin Martinez MONO # 0.9 103/ul Critically high 0.3-0.8 The [facility] Comment on above: Performed By: #### C VDTBH #### [facility] [address] [place] [address] Dr. Caitlin Martinez Monocytes/100 WBC (Bld) 6.7 % Normal 1.7-12.0 [facility] Comment on above: Performed By: #### C VDTBH #### [facility] [address] [address] [address] Caitlin Martinez NEUT # 10.3 103/ul Critically high 1.4-6.5 [facility] Comment on above: Performed By: #### C VDTBH #### [facility] [address] [place] [address] Dr. Caitlin Martinez Neutrophils/100 WBC (Bld) 73.4 % Normal 43.0-75.0 [facility] Comment on above: Performed By: #### C VDTBH #### [facility] [address] [place] [address] Dr. Caitlin Martinez Platelet mean volume (Bld) [Entitic vol] 9.0 fL Critically low 9.5-13.5 The [facility] Comment on above: Performed By: #### C VDTBH #### [facility] [address] [place] [address] Dr. Caitlin Martinez PLT 318 103/ul Normal 150-450 [facility] Comment on above: Performed By: #### C VDTBH #### [facility] [address] [place] [address] Dr. Caitlin Martinez RBC 3.23 106/ul Critically low 4.20-5.40 [facility] Comment on above: Performed By: #### C VDTBH #### [facility] [address] [place] [address] Dr. Caitlin Martinez WBC 14.0 103/ul Critically high 4.0-11.0 [facility] Comment on above: Performed By: #### C VDTBH #### [facility] [address] [place] [address] ABD/PELVIS WO CONon [...] DAVID BLACKMON Date: 2022-01-15 16:31 Normal The [facility] CULTURE URINEon 01-15-2022 CULTURE URINE Culture Observations : LIGHT GROWTH OF MIXED GENITAL COSME. NO POTENTIAL PATHOGENS SEEN. Normal The [facility] Comment on above: Performed By: #### U RCX #### [facility] [address] [place] [address] Dr. Caitlin Martinez UA (CLEAN/CATCH) CHILD CARE LEAD TEACHER/MICRO I F IND.on 01-15-2022 Bilirubin Ql (U) Negative Normal NEGATIVE [facility] Comment on above: Performed By: #### C BC #### [facility] [address] [place] [address] Dr. Caitlin Martinez Clarity (U) CLEAR Normal CLEAR [facility] Comment on above: Performed By: #### C BC #### [facility] [address] [place] [address] Dr. Caitlin Martinez Color (U) LT. YELLOW Normal YELLOW [facility] Comment on above: Performed By: #### C BC #### [facility] [address] [place] [address] Dr. Caitlin Martinez Glucose Ql (U) Negative Normal NEGATIVE [facility] Comment on above: Performed By: #### C BC #### [facility] [address] [place], [place] [id number] Dr. Caitlin Martinez Hemoglobin Ql (U) Negative Normal NEGATIVE [facility] Comment on above: Performed By: #### C BC #### [facility] [address] [place] [address] Dr. Caitlin Martinez Ketones Ql (U) Negative Normal NEGATIVE [facility] Comment on above: Performed By: #### C BC #### [facility] [address] [place] [address] Dr. Caitlin Martinez LEUKOCYTES TRACE Abnormal NEGATIVE [facility] Comment on above: Performed By: #### C BC #### [facility] [address] [place] [address] Dr. Caitlin Martinez Nitrite Ql (U) Negative Normal NEGATIVE [facility] Comment on above: Performed By: #### C BC #### [facility] [address] [place] [address] Dr. Caitlin Martinez pH (U) 7.0 [pH] Normal 5-9 [facility] Comment on above: Performed By: #### C BC #### [facility] [address] [place] [address] Dr. Caitlin Martinez SPEC GRAVITY 1.010 Normal 1.005-<=1.025 [facility] Comment on above: Performed By: #### C BC #### [facility] [address] [place] [address] Dr. Caitlin Martinez UA PROTEIN Negative Normal NEGATIVE/ TRACE The [facility] Comment on above: Performed By: #### C BC #### [facility] [address] [place] [address] Dr. Caitlin Martinez UR MICRO IND INDICATED Normal [facility] Comment on above: Performed By: #### C BC #### [facility] [address] [place] [address] Dr. Caitlin Martinez Urobilinogen Qn (U) 0.2 {Barbara'U}/dL Normal 0.2 - 1. 0 [facility] Comment on above: Performed By: #### C BC #### [facility] [address] [place] [address] Dr. Caitlin Martinez URINE MICROSCOPIC ONLYon BACTERIA MODERATE Abnormal NONE SEEN The [facility] Comment on above: Performed By: #### C BC #### [facility] [address] [place] [address] Dr. Caitlin Martinez Bacteria identified Cx Nom (U) INDICATED Normal The [facility] Comment on above: Performed By: #### C BC #### [facility] [address] [place] [address] Dr. aCitlin Martinez CAST NONE SEEN Normal NONE SEEN The [facility] Comment on above: Performed By: #### C BC #### [facility] [address] [place] [address] Dr. Caitlin Martinez Crystals LM Nom (Urine sed) NONE SEEN Normal NONE SEEN The [facility] Comment on above: Performed By: #### C BC #### [facility] [address] [place] [address] Dr. Caitlin Martinez Epithelial cells LM Ql (Urine sed) MODERATE Abnormal NONE SEEN /RARE The [facility] Comment on above: Performed By: #### C BC #### [facility] [address] [place] [address] Dr. Caitlin Martinez MUCOUS NONE SEEN Normal NONE SEEN The [facility] Comment on above: Performed By: #### C BC #### [facility] [address] [place] [address] Dr. Caitlin Martinez RBC NONE SEEN Abnormal 0-2 The [facility] Comment on above: Performed By: #### C BC #### [facility] [address] [place] [address] Dr. Caitlin Martinez WBC 2-5 Abnormal NONE SEEN The [facility] Comment on above: Performed By: #### C BC #### [facility] [address] [place] [address] Dr. Caitlin Martinez US APPENDIXon 01-15-2022 US [...] DAVID BLACKMON Date: 2022-01-15 14:14 Normal The [facility] US PREG GROWTHon 01-15-2022 US PREG GROWTH [...] DAVID BLACKMON Date: 2022-01-15 10:59 Normal The [facility] US PREG PLACENTAon US PREG PLACENTA EXAMINATION: [...] DAVID BLACKMON Date: 2022-01-15 10:57 Normal The [facility] UA (CLEAN/CATCH) CHILD CARE LEAD TEACHER/MICRO I F IND.on 12-29-2021 Bilirubin Ql (U) Negative Normal NEGATIVE [facility] Comment on above: Performed By: #### C BC #### [facility] [address] [place] [address] Dr. Caitlin Martinez Clarity (U) CLEAR Normal CLEAR The [facility] Comment on above: Performed By: #### C BC #### [facility] [address] [place] [address] Dr. Caitlin Martinez Color (U) LT. YELLOW Normal YELLOW [facility] Comment on above: Performed By: #### C BC #### [facility] [address] [place] [address] Dr. Caitlin Martinez Glucose Ql (U) Negative Normal NEGATIVE [facility] Comment on above: Performed By: #### C BC #### [facility] [address] [place] [address] Dr. Caitlin Martinez Hemoglobin Ql (U) Negative Normal NEGATIVE [facility] Comment on above: Performed By: #### C BC #### [facility] [address] [place] [address] Dr. Caitlin Martinez Ketones Ql (U) Negative Normal NEGATIVE [facility] Comment on above: Performed By: #### C BC #### [facility] [address] [place] [address] Dr. Caitlin Martinez LEUKOCYTES Negative Normal NEGATIVE [facility] Comment on above: Performed By: #### C BC #### [facility] [address] [place] [address] Dr. Caitlin Martinez Nitrite Ql (U) Negative Normal NEGATIVE [facility] Comment on above: Performed By: #### C BC #### [facility] [address] [place] [address] Dr. Caitlin Martinez pH (U) 6.5 [pH] Normal 5-9 [facility] Comment on above: Performed By: #### C BC #### [facility] [address] [place] [address] Dr. Caitlin Martinez SPEC GRAVITY 1.020 Normal 1.005-<=1.025 [facility] Comment on above: Performed By: #### C BC #### [facility] [address] [place] [address] Dr. Caitlin Martinez UA PROTEIN Negative Normal NEGATIVE/ TRACE The [facility] Comment on above: Performed By: #### C BC #### [facility] [address] [place] [address] Dr. Caitlin Martinez UR MICRO IND NOT INDICATED Normal [facility] Comment on above: Performed By: #### C BC #### [facility] [address] [place] [address] Dr. Caitlin Martinez Urobilinogen Qn (U) 1.0 {Barbara'U}/dL Normal 0.2 - 1. 0 [facility] Comment on above: Performed By: #### C BC #### [facility] [address] [place] [address] Dr. Caitlin Martinez US PREG CERVICAL LENGTHon [...] KIRK OATES Date: 2021-12-29 15:53 Normal [facility] UA (CLEAN/CATCH) CHILD CARE LEAD TEACHER/MICRO I F IND.on 12-18-2021 Bilirubin Ql (U) Negative Normal NEGATIVE [facility] Comment on above: Performed By: #### C BC #### [facility] [address] [place] [address] Dr. Caitlin Martinez Clarity (U) CLEAR Normal CLEAR [facility] Comment on above: Performed By: #### C BC #### [facility] [address] [place] [address] Dr. Caitlin Martinez Color (U) YELLOW Normal YELLOW [facility] Comment on above: Performed By: #### C BC #### [facility] [address] [place] [address] Dr. Caitlin Martinez Glucose Ql (U) Negative Normal NEGATIVE [facility] Comment on above: Performed By: #### C BC #### [facility] [address] [place] [address] Dr. Caitlin Martinez Hemoglobin Ql (U) Negative Normal NEGATIVE [facility] Comment on above: Performed By: #### C BC #### [facility] [address] [place] [address] Dr. Caitlin Martinez Ketones Ql (U) TRACE Abnormal NEGATIVE [facility] Comment on above: Performed By: #### C BC #### [facility] [address] [place] [address] Dr. Caitlin Martinez LEUKOCYTES Negative Normal NEGATIVE [facility] Comment on above: Performed By: #### C BC #### [facility] [address] [place] [address] Dr. Caitlin Martinez Nitrite Ql (U) Negative Normal NEGATIVE [facility] Comment on above: Performed By: #### C BC #### [facility] [address] [place] [address] Dr. Caitlin Martinez pH (U) 6.0 [pH] Normal 5-9 [facility] Comment on above: Performed By: #### C BC #### [facility] [address] [place] [address] Dr. Caitlin Martinez SPEC GRAVITY 1.025 Normal 1.005-<=1.025 [facility] Comment on above: Performed By: #### C BC #### [facility] [address] [place] [address] Dr. Caitlin Martinez UA PROTEIN Negative Normal NEGATIVE/ TRACE [facility] Comment on above: Performed By: #### C BC #### [facility] [address] [place] [address] Dr. Caitlin Martinez UR MICRO IND NOT INDICATED Normal [facility] Comment on above: Performed By: #### C BC #### [facility] [address] [place] [address] Dr. Caitlin Martinez Urobilinogen Qn (U) 4 {Barbara'U}/dL Abnormal 0.2 - 1.0 [facility] Comment on above: Performed By: #### C BC #### [facility] [address] [place] [address] Dr. Caitlin Martinez RHOGAMon 11-28-2021 RHOGAM Status Information Issued Quantity 1 Product ID Rh Immune Globulin Lot Number [id number] Issue Date/Time [id number] Normal [facility] Comment on above: Performed By: #### I HORACIO #### [facility] [address] [place] [address] Dr. Caitlin Martinez TYPE AND SCREENon 11-27-2021 TYPE AND SCREEN Negative Normal [facility] Comment on above: Performed By: #### T NS #### [facility] [address] [place] [address] Dr. Caitlin Martinez CULTURE URINEon 11-23-2021 CULTURE URINE Culture Observations : No growth Normal [facility] Comment on above: Performed By: #### I HORACIO #### [facility] [address] [place] [address] Dr. Caitlin Martinez UA (CLEAN/CATCH) CHILD CARE LEAD TEACHER/MICRO I F IND.on 11-23-2021 Bilirubin Ql (U) Negative Normal NEGATIVE [facility] Comment on above: Performed By: #### U RCX #### [facility] [address] [place] [address] Dr. Caitlin Martinez Clarity (U) CLEAR Normal CLEAR [facility] Comment on above: Performed By: #### U RCX #### [facility] [address] [place] [address] Dr. Caitlin Martinez Color (U) LT. YELLOW Normal YELLOW [facility] Comment on above: Performed By: #### U RCX #### [facility] [address] [place] [address] Dr. Caitlin Martinez Glucose Ql (U) Negative Normal NEGATIVE [facility] Comment on above: Performed By: #### U RCX #### [facility] [address] [place] [address] Dr. Caitlin Martinez Hemoglobin Ql (U) Negative Normal NEGATIVE [facility] Comment on above: Performed By: #### U RCX #### [facility] [address] [place] [address] Dr. Caitlin Martinez Ketones Ql (U) Negative Normal NEGATIVE [facility] Comment on above: Performed By: #### U RCX #### [facility] [address] [place] [address] Dr. Caitlin Martinez LEUKOCYTES SMALL Abnormal NEGATIVE [facility] Comment on above: Performed By: #### U RCX #### [facility] [address] [place] [address] Dr. Caitlin Martinez Nitrite Ql (U) Negative Normal NEGATIVE [facility] Comment on above: Performed By: #### U RCX #### [facility] [address] [place] [address] Dr. Caitlin Martinez pH (U) 6.5 [pH] Normal 5-9 [facility] Comment on above: Performed By: #### U RCX #### [facility] [address] [place] [address] Dr. Caitlin Martinez SPEC GRAVITY 1.010 Normal 1.005-<=1.025 [facility] Comment on above: Performed By: #### U RCX #### [facility] [address] [place] [address] Dr. Caitlin Martinez UA PROTEIN Negative Normal NEGATIVE/ TRACE [facility] Comment on above: Performed By: #### U RCX #### [facility] [address] [place] [address] Dr. Caitlin Martinez UR MICRO IND INDICATED Normal [facility] Comment on above: Performed By: #### U RCX #### [facility] [address] [place] [address] Dr. Caitlin Martinez Urobilinogen Qn (U) 0.2 {Barbara'U}/dL Normal 0.2 - 1. 0 [facility] Comment on above: Performed By: #### U RCX #### [facility] [address] [place] [address] Dr. Caitlin Martinez URINE MICROSCOPIC ONLYon BACTERIA TRACE Abnormal NONE SEEN The [facility] Comment on above: Performed By: #### U RCX #### [facility] [address] [place] [address] Dr. Caitlin Martinez Bacteria identified Cx Nom (U) INDICATED Normal [facility] Comment on above: Performed By: #### U RCX #### [facility] [address] [place] [address] Dr. Caitlin Martinez CAST SEEN Abnormal NONE SEEN [facility] Comment on above: Performed By: #### U RCX #### [facility] [address] [place] [address] Dr. Caitlin Martinez Crystals LM Nom (Urine sed) SEEN Abnormal NONE SEEN [facility] Comment on above: Performed By: #### U RCX #### [facility] [address] [place] [address] Dr. Caitlin Martinez Epithelial cells LM Ql (Urine sed) RARE Normal NONE SEEN /RARE [facility] Comment on above: Performed By: #### U RCX #### [facility] [address] [place] [address] Dr. Caitlin Martinez MUCOUS TRACE Abnormal NONE SEEN [facility] Comment on above: Performed By: #### U RCX #### [facility] [address] [place] [address] Dr. Caitlin Martinez RBC 0-2 Normal 0-2 [facility] Comment on above: Performed By: #### U RCX #### [facility] [address] [place] [address] Dr. Caitlin Martinez WBC 2-5 Abnormal NONE SEEN [facility] Comment on above: Performed By: #### U RCX #### [facility] [address] [place] [address] Dr. Caitlin Martinez GLUCOSE - 1HRon 11-06-2021 Glucose [Mass/Vol] 131 mg/dL Critically high 74-106 T [facility] Comment on above: Performed By: #### I HORACIO #### [facility] [address] [place] [address] Dr. Caitlin Martinez HEMOGRAM AND PLATELon 2021 Hematocrit (Bld) [Volume fraction] 34.2 % Critically low 36.0-48.0 [facility] Comment on above: Performed By: #### C BC #### [facility] [address] [place] [address] Dr. Caitlin Martinez Hemoglobin (Bld) [Mass/Vol] 11.3 g/dL Critically low 12.0-16.0 [facility] Comment on above: Performed By: #### C BC #### [facility] [address] [place] [address] Dr. Caitlin Martinez MCH (RBC) [Entitic mass] 31.7 pg Normal 26.7-34.0 [facility] Comment on above: Performed By: #### C BC #### [facility] [address] [place] [address] Dr. Caitlin Martinez MCHC (RBC) [Mass/Vol] 33.0 g/dL Normal 29.9-35.2 [facility] Comment on above: Performed By: #### C BC #### [facility] [address] [place] [address] Dr. Caitlin Martinez MCV (RBC) [Entitic vol] 96.1 fL Normal 81.0-99.0 [facility] Comment on above: Performed By: #### C BC #### [facility] [address] [place] [address] Dr. Caitlin Martinez PLT 372 103/ul Normal 150-450 [facility] Comment on above: Performed By: #### C BC #### [facility] [address] [place] [address] Dr. Caitlin Martinez RBC 3.56 106/ul Critically low 4.20-5.40 [facility] Comment on above: Performed By: #### C BC #### [facility] [address] [place] [address] Dr. Caitlin Martinez WBC 10.1 103/ul Normal 4.0-11.0 [facility] Comment on above: Performed By: #### C BC #### [facility] [address] [place] [address] Dr. Caitlin Martinez CHLAMYDIA/GONOCOCCUS JONATAN ( AB/URINE/PAPon 10-31-2021 Chlamydia trachomatis, JONATAN Negative Normal Negative [facility] Comment on above: Performed By: #### C BC #### [facility] Laboratory [address] [place] [address] Dr. Caitlin Martinez Neisseria gonorrhoeae, JONATAN Negative Normal Negative [facility] Comment on above: Performed By: #### C BC #### [facility] Laboratory [address] [place] [address] Dr. Caitlin Martinez VAGINITIS/VAGINOSIS DNA PROB Paramjit 10-29-2021 Selena species Negative Normal Negative The [facility] Comment on above: Performed By: #### U RCX #### [facility] Laboratory [address] [place] [address] Dr. Caitlin Martinez Gardnerella vaginalis Negative Normal Negative [facility] Comment on above: Performed By: #### U RCX #### [facility] Laboratory [address] [place] [address] Dr. Caitlin Martinez Trichomonas vaginalis Negative Normal Negative [facility] Comment on above: Performed By: #### U RCX #### [facility] Laboratory [address] [place] [address] Dr. Caitlin Martinez US PREG INCOMPLETE ANATOMYon [...] DAVID BLACKMON Date: 2021-10-26 12:05 Normal [facility] CBC W MANUAL DIFFon 10-25-19 22 ATYPICAL LYMPH # Normal [facility] Comment on above: Performed By: #### U RCX #### [facility] Laboratory [address] [place] [address] Dr. Caitlin Martinez ATYPICAL LYMPH % Normal [facility] Comment on above: Performed By: #### U RCX #### [facility] Laboratory [address] [place] [address] Dr. Caitlin Martinez BAND # 0.1 103/ul Normal 0.0-0.3 [facility] Comment on above: Performed By: #### U RCX #### [facility] Laboratory [address] [place] [address] Dr. Caitlin Martinez BAND % 1 % Normal 0-5 [facility] Comment on above: Performed By: #### U RCX #### [facility] Laboratory [address] [address] [address] Caitlin Martinez BASOM # 0.00 103/ul Normal 0.00-0.10 [facility] Comment on above: Performed By: #### U RCX #### [facility] Laboratory [address] [address] [address] Caitlin Martinez BASOM % 0.0 % Critically low 0.2-2.0 [facility] Comment on above: Performed By: #### U RCX #### [facility] [address] [address] [address] Caitlin Martinez BLAST # Normal [facility] Comment on above: Performed By: #### U RCX #### [facility] Laboratory [address] [place] [address] Dr. Caitlin Martinez BLAST % Normal [facility] Comment on above: Performed By: #### U RCX #### [facility] Laboratory [address] [place] [address] Dr. Caitlin Martinez CORRECTED WBC Normal 4.0-11.0 [facility] Comment on above: Performed By: #### U RCX #### [facility] Laboratory [address] [place] [address] Dr. Caitlin Martinez EOS # 0.12 103/ul Normal 0.00-0.70 [facility] Comment on above: Performed By: #### U RCX #### [facility] Laboratory [address] [place] [address] Dr. Caitlin Martinez EOS% 1.0 % Normal 0.9-7.0 [facility] Comment on above: Performed By: #### U RCX #### [facility] Laboratory [address] [address] [address] Caitlin Martinez HCT 31.5 % Critically low 36.0-48.0 [facility] Comment on above: Performed By: #### U RCX #### [facility] Laboratory [address] [place] [address] Dr. Caitlin Martinez HGB 10.5 g/dl Critically low 12.0-16.0 [facility] Comment on above: Performed By: #### U RCX #### [facility] Laboratory [address] [address] [address] Caitlin Martinez LYMPHM # 0.37 103/ul Critically low 1.20-3.80 [facility] Comment on above: Performed By: #### U RCX #### [facility] Laboratory [address] [address] [address] Caitlin Martinez LYMPHM% 3.0 % Critically low 20.5-60.0 [facility] Comment on above: Performed By: #### U RCX #### [facility] Laboratory [address] [address] [address] Caitlin Martinez MCH 31.8 pg Normal 26.7-34.0 [facility] Comment on above: Performed By: #### U RCX #### [facility] Laboratory [address] [place] [address] Dr. Caitlin Martinez MCHC 33.3 g/dl Normal 29.9-35.2 [facility] Comment on above: Performed By: #### U RCX #### [facility] Laboratory [address] [place] [address] Dr. Caitlin Martinez MCV 95.5 fL Normal 81.0-99.0 [facility] Comment on above: Performed By: #### U RCX #### [facility] Laboratory [address] [place] [address] Dr. Caitlin Martinez METAMYELOCYTE # Normal [facility] Comment on above: Performed By: #### U RCX #### [facility] Laboratory [address] [place] [address] Dr. Caitlin Martinez METAMYELOCYTE % Normal [facility] Comment on above: Performed By: #### U RCX #### [facility] Laboratory [address] [place] [address] Dr. Caitlin Martinez MONOM# 0.73 103/ul Normal 0.30-0.80 [facility] Comment on above: Performed By: #### U RCX #### [facility] Laboratory [address] [place] [address] Dr. Caitlin Martinez MONOM% 6.0 % Normal 1.7-12.0 [facility] Comment on above: Performed By: #### U RCX #### [facility] Laboratory [address] [place] [address] Dr. Caitlin Martinez MPV 9.5 fL Normal 9.5-13.5 [facility] Comment on above: Performed By: #### U RCX #### [facility] Laboratory [address] [place] [address] Dr. Caitlin Martinez MYELOCYTE # Normal [facility] Comment on above: Performed By: #### U RCX #### [facility] Laboratory [address] [place] [address] Dr. Caitlin Martinez MYELOCYTE % Normal [facility] Comment on above: Performed By: #### U RCX #### [facility] Laboratory [address] [place] [address] Dr. Caitlin Martinez NRBC Normal [facility] Comment on above: Performed By: #### U RCX #### [facility] Laboratory [address] [place] [address] Dr. Caitlin Martinez PLT 275 103/ul Normal 150-450 [facility] Comment on above: Performed By: #### U RCX #### [facility] Laboratory [address] [place] [address] Dr. Caitlin Martinez RBC 3.30 106/ul Critically low 4.20-5.40 [facility] Comment on above: Performed By: #### U RCX #### [facility] Laboratory [address] [place] [address] Dr. Caitlin Martinez RDW 13.6 % Normal 11.0-15.0 [facility] Comment on above: Performed By: #### U RCX #### [facility] Laboratory [address] [place] [address] Dr. Caitlin Martinez SEG # 10.86 103/ul Critically high 1.40-6.[address] [facility] Comment on above: Performed By: #### U RCX #### [facility] Laboratory [address] [place] [address] Dr. Caitlin Martinez SEG % 89.0 % Critically high 43.0-75.0 [facility] Comment on above: Performed By: #### U RCX #### [facility] Laboratory [address] [address] [address] Caitlin Martinez WBC 12.2 103/ul Critically high 4.0-11.0 [facility] Comment on above: Performed By: #### U RCX #### [facility] Laboratory [address] [address] [address] Caitlin Martinez ER URINE PROFILEon 2 Bilirubin Ql (U) Negative Normal NEGATIVE [facility] Comment on above: Performed By: #### C VDTBH #### [facility] Laboratory [address] [place] [address] Dr. Caitlin Martinez Clarity (U) SL CLOUDY Abnormal CLEAR [facility] Comment on above: Performed By: #### C VDTBH #### [facility] Laboratory [address] [place] [address] Dr. Caitlin Martinez Color (U) YELLOW Normal YELLOW [facility] Comment on above: Performed By: #### C VDTBH #### [facility] Laboratory [address] [place] [address] Dr. Caitlin Martinez ERUNadine A micrscopic examination will be performed if indicated. Normal [facility] Comment on above: Performed By: #### C VDTBH #### [facility] Laboratory [address] [place] [address] Dr. Caitlin Martinez Glucose Ql (U) Negative Normal NEGATIVE [facility] Comment on above: Performed By: #### C VDTBH #### [facility] Laboratory [address] [place] [address] Dr. Caitlin Martinez Hemoglobin Ql (U) Negative Normal NEGATIVE [facility] Comment on above: Performed By: #### C VDTBH #### [facility] Laboratory [address] [place] [address] Dr. Caitlin Martinez Ketones Ql (U) >=80 Abnormal NEGATIVE [facility] Comment on above: Performed By: #### C VDTBH #### [facility] Laboratory [address] [place] [address] Dr. Caitlin Martinez LEUKOCYTES Negative Normal NEGATIVE [facility] Comment on above: Performed By: #### C VDTBH #### [facility] Laboratory [address] [place] [address] Dr. Caitlin Martinez Nitrite Ql (U) Negative Normal NEGATIVE [facility] Comment on above: Performed By: #### C VDTBH #### [facility] Laboratory [address] [place] [address] Dr. Caitlin Martinez pH (U) 6.0 [pH] Normal 5-9 [facility] Comment on above: Performed By: #### C VDTBH #### [facility] Laboratory [address] [place] [address] Dr. Caitlin Martinez SPEC GRAVITY 1.020 Normal 1.005-<=1.025 [facility] Comment on above: Performed By: #### C VDTBH #### [facility] Laboratory [address] [place] [address] Dr. Caitlin Martinez UA PROTEIN Negative Normal NEGATIVE/ TRACE [facility] Comment on above: Performed By: #### C VDTBH #### [facility] Laboratory [address] [place] [address] Dr. Caitlin Martinez UR MICRO IND NOT INDICATED Normal [facility] Comment on above: Performed By: #### C VDTBH #### [facility] Laboratory [address] [place] [address] Dr. Caitlin Martinez Urobilinogen Qn (U) 1.0 {Barbara'U}/dL Normal 0.2 - 1. 0 [facility] Comment on above: Performed By: #### C VDTBH #### [facility] Laboratory [address] [place] [address] Dr. Caitlin Martinez INFLUENZA A AND B AGon 10-24 INFLUBNEG SEE BELOW Normal [facility] Comment on above: Result Comment: Nega tive for Flu B protein antigen. Infection due to Flu B cannot be ruled out. Flu B antigen in the sample may be below the detection limit of the test. Performed By: #### C VDTBH #### [facility] Laboratory [address] [place] [address] Dr. Caitlin Martinez INFLUENZA A AG Positive Abnormal NEGATIVE SEE COMMENT [facility] Comment on above: Performed By: #### C VDTBH #### [facility] Laboratory [address] [place] [address] Dr. Caitlin Martinez INFLUENZA B AG Negative Normal NEGATIVE SEE COMMENT [facility] Comment on above: Performed By: #### C VDTBH #### [facility] Laboratory [address] [place] [address] Dr. Caitlin Martinez INFLUPOSH SEE BELOW Normal [facility] Comment on above: Result Comment: NOTE : Live attenuated influenzae vaccine viruses can cause a positive result for a rapid influenza diagnostic test if administered up to 7 days prior to rapid testing. Performed By: #### C VDTBH #### [facility] Laboratory [address] [place] [address] Dr. Caitlin Martinez INTERNAL CONTROLS Within Normal Limits Normal Wi thin Normal Limits [facility] Comment on above: Performed By: #### C VDTBH #### [facility] Laboratory [address] [place] [address] Dr. Caitlin Martinez PROF CHEM 8 (BAS METB)on Anion gap [Moles/Vol] 14.4 mmol/L Normal [facility] Comment on above: Performed By: #### D RHONA, ABINadine #### [facility] Laboratory [address] [place] [address] Dr. Caitlin Martinez Calcium [Mass/Vol] 8.4 mg/dL Critically low 8.5-10.1 [facility] Comment on above: Performed By: #### D RHONA, ABID #### [facility] Laboratory [address] [place] [address] Dr. Caitlin Martinez Chloride [Moles/Vol] 101 mmol/L Normal 98-107 [facility] Comment on above: Performed By: #### D RHONA, ABID #### [facility] Laboratory [address] [place] [address] Dr. Caitlin Martinez CO2 [Moles/Vol] 19.7 mmol/L Critically low 21.0-32.0 [facility] Comment on above: Performed By: #### D RHONA ABID #### [facility] Laboratory [address] [address] [address] Caitlin Martinez Creatinine [Mass/Vol] 0.55 mg/dL Normal 0.55-1.02 [facility] Comment on above: Performed By: #### D IRCMB, ABID #### [facility] Laboratory [address] [address] [address] Caitlin Martinez EGFR-AF GERMAN >60 Normal >=60 [facility] Comment on above: Performed By: #### D IRCMB, ABID #### [facility] Laboratory [address] [address] [address] Catilin Martinez EGFR-NON AF GERMAN >60 Normal >=60 [facility] Comment on above: Performed By: #### D IRCMB, ABID #### [facility] Laboratory [address] [address] [address] Caitlin Martinez Glucose [Mass/Vol] 91 mg/dL Normal 74-[address] [facility] Comment on above: Performed By: #### D IRCMB, ABID #### [facility] Laboratory [address] [address] [address] Caitlin Martinez Potassium [Moles/Vol] 3.1 mmol/L Critically low 3.5-5.1 [facility] Comment on above: Performed By: #### D IRCMB, ABID #### [facility] Laboratory [address] [address] [address] Caitlin Martinez Sodium [Moles/Vol] 132 mmol/L Critically low 136-145 [facility] Comment on above: Performed By: #### D IRCMB, ABID #### [facility] Laboratory [address] [address] [address] Caitlin Martinez Urea nitrogen [Mass/Vol] 7.0 mg/dL Normal 7.0-18.0 [facility] Comment on above: Performed By: #### D IRCMB, ABID #### [facility] Laboratory [address] [address] [address] Caitlin Martinez Urea nitrogen/Creatinine [Mass ratio] 12.7 mg/mg Normal [facility] Comment on above: Performed By: #### D IRCMB, ABID #### [facility] Laboratory [address] [address] [address] Caitlin Martinez US PREG ANATOMY SINGLEon [...] by: DAVID BLACKMON Date: 2021-09-28 09:17 Normal [facility] CHEMISTRYOrdered By: SYSTEM SYSTEM on 06-21-2021 [place] [id number] m[IU]/mL High 1 - 3 mIU/mL [facility] [...] gas pattern is nonobstructive. There is a xrnosqoh-jc-auayk amount of stool burden. IMPRESSION: No malalignment. No acute compression deformity. Aaaixcdq-ji-avfui amount of stool burden. [employer] Workstation ID: [id number] Dictated by: LUBA GARCÍA on [facility] Mar 05, 2020 4:09:51 PM EDT Transcribed by: KELVIN GUADALUPE on [facility] Mar 05, 2020 4:17:18 PM EDT Finalized by: LUBA GARCÍA on [facility] Mar 05, 2020 7:52:11 PM EDT [facility] Comment on above: Order Comment: Injur y/Trauma or Illness?:Illness/Other How long have you had these symptoms (acute/chronic)?:Chronic Reason for exam?:low back pain History of cancer?:n Surgeries, chemotherapy, or radiation?:n Type of Exam?:Initial Additional signs and symptoms?:fibromyalgia XR Lumbar Spine 2-3 Views (S tandard)on 03-05-2020 No malalignment. No acute compression deformity. Wkdyxojp-pp-twmbd amount of stool burden. [employer] Workstation ID: [id number] [facility] EXAMINATION: XR LUMBAR SPINE 2-3 VIEWS [...] gas pattern is nonobstructive. There is a gwuoamxp-zn-pccbj amount of stool burden. [facility] Interface, Rad In [place] Speechq - [...] gas pattern is nonobstructive. There is a rclqqaog-qs-rpgti amount of stool burden. IMPRESSION: No malalignment. No acute compression deformity. Rwngedyl-zc-fizqj amount of stool burden. [employer] Workstation ID: [id number] [facility] CNOVon 10-28-2018 CNOV Office Visit (OLVIN ) SANDY GODINEZ ([id number]) 1995 F Date Time Provider Department 10/28/18 [...] Farrah Garcia MD [address] [place] [address] Consult requested for an opinion regarding the [...] TIME: 12:44 PM Referring Provider: FARRAH GARCIA [[id number]] Allergies As of Date: 10/28/2018 (No Known [...] by WARREN RODRIGUEZ MD on 10/29/18 [facility]-28-2018 Protein mass conc HNO ID: [id number] Author: Warren Rodriguez Service: ? Author Type: Physician Type: Progress Notes Filed: 10/29/2018 3:03 PM Note Text: VASCULAR SURGERY INITIAL CONSULT SERVICE DATE: 10/28/2018 SERVICE TIME: 12:44 PM PRIMARY CARE PHYSICIAN: Farrah Garcia MD REFERRING PROVIDER: Farrah Garcia MD [address] [facility] [address] Consult requested for an opinion regarding the [...] October 28, 2018 TIME: 12:44 PM Normal [facility] Vital Signs Date Time Vital Sign Value Performing Clinician Chiquis zaragoza 07-19-2023 09:31-0500 Body mass index (BMI) [Ratio] 26.79 kg/m2 [facility] Nurse [facility] 07-19-2023 09:31-0500 Body weight 73.03 kg [facility] Nurse [facility] 07-19-2023 09:31-0500 Diastolic blood pressure 72 mm[Hg] [facility] Nurse [facility] 07-19-2023 09:31-0500 Systolic blood pressure 118 mm[Hg] [facility] Nurse [facility] Encounters Encounter Date Encounter Type Care Provider Facility Start: 03-02-2024 End: 03-02-2024 ambulatory JANIE THEODORE Not Available Start: 02-03-2024 End: 02-03-2024 ambulatory JOSE MIGUEL [...] End: 11-08-2023 ambulatory JOSE MIGUEL R JUSTEN [facility] Start: 10-15-2023 End: 10-15-2023 ambulatory [...] Not Available Start: 07-08-2023 ambulatory Royer Layne acility:[facility] Start: 07-02-2023 End: 07-02-2023 ambulatory [...] Start: 10-29-2021 End: 10-29-[address] DOCTOR MISC Facility:[facility] Start: 10-26-2021 End: 10-26-[address] DOCTOR MISC Facility:[facility] Start: 10-26-2021 End: 10-27-[address] DOCTOR MISC Facility:[facility] Start: 10-24-2021 End: 10-24-[address] LROENZANA MISC Facility:[facility] Start: 09-28-2021 End: 09-29-[address] JOSE MIGUEL CAMPUZANO Facility:[facility] Start: 09-16-2021 End: 09-16-2021 ambulatory ILIR JUAREZ Facility:[facility] Start: 06-21-2021 End: 09-19-2021 Recurring Jose Miguel CAMPUZANO [facility] Start: 03-05-2020 End: 03-06-2020 [facility] Start: 03-05-2020 End: 03-05-2020 Subsequent hospital visit by physician Vibha Johnson Work Phone: [facility] Comment on above: Chronic low back [...] AM EST Routine [facility] [address] [place] [address] Jose Miguel Campuzano, DO [address] [place] [address] [facility] Start: 07-19-2023 End: 07-19-2024 ABO/Rh ABO/Rh Lab Routine Missed menses Expected: 07/19/2023 (Approximate), Expires: 07/19/2024 [facility] Comment on above: Expected: 07/19/2023 (Approximate), Expires: 07/19/2024 Start: 07-19-2023 End: 07-19-2024 Blood type and Indirect antibody screen panel - Blood Type and screen Lab Routine Missed menses Expected: 07/19/2023 (Approximate), Expires: 07/19/2024 [facility] Work Phone: Comment on above: Expected: 07/19/2023 (Approximate), Expires: 07/19/2024 Start: 07-19-2023 End: 07-19-2024 US Pelvis transvaginal US OB transvaginal Imaging Routine Missed menses Expected: 07/19/2023 (Approximate), Expires: 07/19/2024 [facility] Comment on above: Expected: 07/19/2023 (Approximate), Expires: 07/19/2024 Start: 02-16-2020 Influenza vaccinatio n given Sequential Influenza Vaccine (#1) [facility] Start: 2014 Hepatitis C antibody , confirmatory test Hepatitis C Screening [facility] Start: 08-31-2011 HIV screening HIV Screening [facility] Start: 08-31-2007 Vaccination for [place] papillomavirus HPV Vaccines (1 - 2-dose series) [facility] Start: 08-31-1999 History and physical examination, annual for health maintenance Wellness Visit [facility] Start: 1996 Screening for Chlamy tristan trachomatis Chlamydia Screening [facility] Start: 1996 Screening for malign ant neoplasm of cervix Pap Smear [facility] Start: 1996 Tetanus vaccination Tetanus: Every 1 0yrs [facility] Bacteria identified in Urine by Culture Urine culture Microbiology Routine Missed menses Ordered: 07/19/2023 [facility] Comment on above: Ordered: 07/19/2023 CBC W Auto Different ial panel - Blood CBC and differential Lab Routine Missed menses Ordered: 07/19/2023 [facility] Comment on above: Ordered: 07/19/2023 Hemoglobin A1c measurement Hemoglobin A1c Lab Routine Missed menses Ordered: 07/19/2023 [facility] Comment on above: Ordered: 07/19/2023 Hepatitis B virus knight rface Ag [Presence] in Serum or Plasma by Immunoassay Hepatitis B surface antigen Lab Routine Missed menses Ordered: 07/19/2023 [facility] Comment on above: Ordered: 07/19/2023 Hepatitis C virus Ab [Presence] in Serum or Plasma by Immunoassay Hepatitis C antibody Lab Routine Missed menses Ordered: 07/19/2023 [facility] Comment on above: Ordered: 07/19/2023 HIV-1/HIV-2 antigen/antibody combination immunoassay HIV-1 and HIV-2 antibodies Lab Routine Missed menses Ordered: 07/19/2023 [facility] Comment on above: Ordered: 07/19/2023 Reagin Ab [Presence] in Serum by RPR RPR Lab Routine Missed menses Ordered: 07/19/2023 [facility] Comment on above: Ordered: 07/19/2023 Rubella antibody, IgG Rubella an tibody, IgG Lab Routine Missed menses Ordered: 07/19/2023 [facility] Comment on above: Ordered: 07/19/2023 Payers Date Payer Category Payer Self-pay 2022 Medicaid [employer] [place] [id number] 2022-Present [address] [place] [address] [id number] 1995 Unknown [id number] 1995 Unknown [id number] 1995 Unknown [id number] 1995 Unknown [id number] 1995 Unknown [id number] 2.16.840.1.373575.3.579.2.593 1996 Unknown [id number] 2.16.840.1.443264.3.579.2.593 1996 Unknown [id number] 2.16.840.1.541077.3.579.2.59 1996 Unknown [id number] 2.16.840.1.043179.3.579.2.593 1996 Unknown [id number] 2.16.840.1.378824.3.579.2.593 1996 Unknown [id number] 2.16.840.1.947451.3.579.2.593 1996 Unknown [id number] 2.16.840.1.016785.3.579.2.593 1996 Unknown [id number] 2.16.840.1.510135.3.579.2.593 1996 Unknown [id number] 2.16.840.1.263833.3.579.2.593 1996 Unknown [id number] 2.16.840.1.636092.3.579.2.593 1996 Unknown [id number] 2.16.840.1.528978.3.579.2.593 1996 Unknown [id number] 2.16.840.1.521773.3.579.2.593 1996 Unknown [id number] 2.16.840.1.205110.3.579.2.593 1996 Unknown [id number] 2.16.840.1.441266.3.579.2.593 1996 Unknown [id number] 2.16.840.1.654062.3.579.2.593 1996 Unknown [id number] 2.16.840.1.429475.3.579.2.593 1996 Unknown [id number] 2.16.840.1.714093.3.579.2.593 1996 Unknown [id number] 2.16.840.1.053194.3.579.2.593 1996 Unknown [id number] 2.16.840.1.208789.3.579.2.1286 1996 Unknown [id number] 2.16.840.1.873375.3.579.2.6 1996 Unknown [id number] 2.16.840.1.291499.3.579.2.1258 1996 Unknown [id number] 2.16.840.1.854535.3.579.2.1258 1996 Unknown [id number] 2.16.840.1.817700.3.579.2.1258 1996 Unknown [id number] 2.16.840.1.755024.3.579.2.1258 1996 Unknown [id number] 2.16.840.1.501203.3.579.2.1258 1996 Unknown [id number] 2.16.840.1.651578.3.579.2.1258 1996 Unknown [id number] 2.16.840.1.182808.3.579.2.1258 1996 Unknown [id number] 2.16.840.1.015191.3.579.2.1258 1996 Unknown [id number] 2.16.840.1.804758.3.579.2.1258 1996 Unknown [id number] 2.16.840.1.784821.3.579.2.1258 1996 Unknown [id number] 2.16.840.1.697876.3.579.2.1258 1996 Unknown [id number] 2.16.840.1.607224.3.579.2.1258 1996 Unknown [id number] 2.16.840.1.725675.3.579.2.1258 1996 Unknown [id number] 2.16.840.1.748083.3.579.2.1258 1959 Unknown [id number] 1959 Unknown [id number] Unknown COMMERCIAL COMME RCIAL MISCELLANEOUS [id number] Effective for all dates [id number] 1.2.840.732851.1.13.385.2.7.3. 201494.315 Unknown [id number] Unknown [id number] 2.16.840.1.880893.3.579.2.531 Social History Date Type Detail Facility Tobacco smoking stat us NHIS Unknown if ever smoked [facility] Sex Assigned At Not on file [facility] Start: 12-07-2022 Sex Assigned At Female [facility] Start: 12-07-2022 Tobacco smoking status NHIS Never smoked tobacco [facility] Start: 07-19-2023 Alcohol intake Current drinker of alcohol (finding) [facility] Start: 12-07-2022 History of Social function [facility] Start: 12-07-2022 Alcohol Comment 1-2 drinks less than monthly in the past year [facility] Start: 05-31-2023 [facility] Start: 1996 Sex Assigned At Female [facility] Start: 11-29-2022 Gender identity Identifies as female gender (finding) [facility] Start: 11-29-2022 Sexual orientation Heterosexual (finding) [facility] History of Present illness [...] 2018 [place] TONSILLECTOMY & ADENOIDECTOMY AGE 13/> 2014 WISDOM [...] sent for nausea to pharmacy. Pt desires [place] [facility] and understands to have it done at 10 weeks along w/her labs. Follow Up: Patient is to have labs drawn at directed and return to office for initial OB appointment with provider. Patient may call office as needed with any concerns or questions. Nurse Visit Completed by: Cori Daniel MA documented in this encounter [facility] Clinical Note 01-16-2022 Note Date [...] by: Cecelia FOOTE Date: 2022-01-16 21:33 [facility] Clinical Note 01-16-2022 Note Date & Type [...] by: Cecelia FOOTE Date: 2022-01-16 21:33 [facility] Clinical Note 01-15-2022 Note Date & Type [...] by: IGOR DIAZ Date: 2022-01-15 10:10 [facility] Evaluation + Plan note Note Date & Type Note Facility Evaluation + Plan note No data available for this section [facility] Evaluation note Note Date & Type Note Facility Evaluation note Diagnosis Missed menses Nausea Nausea alone documented in this encounter [facility] Discharge instructions Note Date & Type Note Facility Hospital Discharge instructions No data available for this section [facility] Summary Purpose Family History No Family History Records FoundNo Family History Records FoundNo Family History Records FoundNo Family History Records FoundNo Family History Records FoundNo Family History Records FoundNo Family History Records Found Advance Directives No Advanced Directives Records FoundDocuments on File Type Date Recorded 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 Advance Directives and Rita torres Will 03/05/2020 2:18 PM Assessments Diagnosis Chronic low back pain, unspecified back pain laterality, unspecified whether sciatica present Additional Source Comments INFORMATION SOURCE (unrecogn ized section and content) DATE CREATED AUTHOR 11/08/2018 [facility] DATE CREATED AUTHOR AUTHOR'S ORGANIZ ATION 03/21/2020 [facility] DATE CREATED AUTHOR AUTHOR'S ORGANIZ ATION 08/04/2022 [facility] DATE CREATED AUTHOR AUTHOR'S ORGANIZ ATION 09/06/2022 [facility] DATE CREATED AUTHOR AUTHOR'S ORGANIZ ATION 09/17/2023 [facility] DATE CREATED AUTHOR AUTHOR'S ORGANIZ ATION 11/09/2023 [facility] DATE CREATED AUTHOR AUTHOR'S ORGANIZ ATION 03/03/2024 [facility] EPIC Reason for Visit (unrecogniz ed [...] BE BASED ON THE PRIMARY CLINICAL RECORDS. [employer] provides no warranty or guarantee of the accuracy or completeness of information in this document.
== END 2024-03-04 12:13 | disposition home or self-care (01) ==
PROVIDERS: PCP Nurse Practitioner Family; Visit Provider Surgery
DX: Z01.818 Encounter for other preprocedural examination (principal); K80.20 Calculus of gallbladder without cholecystitis without obstruction

== ENCOUNTER 2024-03-10 06:35 | Day surgery (SDC) | payer OTHER, SELFPAY ==
[2024-03-04 12:51] VITALS: BP 117/76; PULSE 69; TEMP 36.5; O2SAT 99; BMI 32.3
[2024-03-10] VITALS (17 sets, daily range): BP systolic 103–138; BP diastolic 59–93; PULSE 74–102; TEMP 36.1–36.4; O2SAT 93–99; BMI 32.5
--- OUTSIDE RECORDS SUMMARY | 2024-03-10 06:38 | XMS_ITS | CCD ---
Author Organization [facility] Care Team Providers Care Community Reinvestment Act Officer Name Role Phone Farrah Garcia Primary Care Provider [phone] VIBHA JOHNSON Attending Unavailable VIBHA JOHNSON Referring [...] ble ZIEBER, DR DAVID Sanchez Consulting Unavailable JUSETN, DR GILLESPIE Attending Unavailable WEST, DR KIRK [...] (1 source) [facility]onide Drug Allergy 9 [facility] Repository (2 sources) Wound Dressing Adhesive [...] Other [facility] (current) 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; 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: [OTH INTERMEDIATE CURRENT DRUG THERAPY] Onset: 02-05-2022 Episodic Other [...] DIFFon BASOPHILS ABSOLUTE AUTO 0.1 [facility] Basophils/100 WBC (Bld) 0.7 % 0.2 - 2.0 % [facility] Eosinophils/100 WBC (Bld) 2.6 % 0.9 - 7.0 % [facility] Erythrocyte distribution width (RBC) [Ratio] 13.4 % 11.0 - 15.0 % [facility] Hematocrit (Bld) [Volume fraction] 39.0 % 36.0 - 48.0 % [facility] Hemoglobin (Bld) [Mass/Vol] 12.8 g/dL 12.0 - 16.0 g/dL [facility] IMMATURE GRANULOCYTES ABS AUTO 0.01 [facility] Immature granulocytes/100 WBC (Bld) 0.1 % 0.0 - 0.5 % [facility] LYMPHOCYTES ABSOLUTE AUTO 2.2 [facility] Lymphocytes/100 WBC (Bld) 26.1 % 20.5 - 60.0 % [facility] MCH (RBC) [Entitic mass] 28.6 pg 26.7 - 34.0 pg [facility] MCHC (RBC) [Mass/Vol] 32.8 g/dL 29.9 - 35.2 g/dL [facility] MCV (RBC) [Entitic vol] 87.2 fL 81.0 - 99.0 fL [facility] MONOCYTES ABSOLUTE AUTO 0.5 [facility] Monocytes/100 WBC (Bld) 5.7 % 1.7 - 12.0 % [facility] NEUTROPHILS ABSOLUTE AUTO 5.5 [facility] Neutrophils/100 WBC (Bld) 64.8 % 43.0 - 75.0 % [facility] Platelet mean volume (Bld) [Entitic vol] 10.1 fL 9.5 - 13.5 fL [facility] TBH EO # 0.2 [facility] PLT 340 [facility] RBC 4.47 [facility] WBC 8.4 [facility] HCG ( test) Ql (U)o n 07-19-2023 Interpretation and review of laboratory results Abnormal [facility] Preg Test, Ur Positive [facility] Urinalysis macro (dipstick) panel (U)on 07-19-2023 Bilirubin, UA Negative Negative - 4(70) +++ mg/dL [facility] Blood, UA Positive Negative - 50 Anselmo/mcL [facility] Comment on above: moderate Clarity, UA Clear [facility] Color, UA [place] [facility] Glucose, UA Negative Negative - 1999(110) ++++ mg/dL [facility] Interpretation and review of laboratory results Abnormal [facility] Ketones, UA Positive Negative - 160(16) ++++ mg/dL [facility] Comment on above: trace Leukocytes, UA Positive Negative - 500+++ Monik/mcL [facility] Comment on above: small Nitrite, UA Negative Negative - Positive [facility] pH, UA 6.0 5 - 9 [facility] Protein, UA Positive Negative - 1999(20) ++++ mg/dL [facility] Comment on above: 30 Spec Grav, UA 1.030 1 - 1.03 [facility] Urobilinogen, UA 1.0 0.2 - 12 mg/dL [facility] In office Testingon 09-07-19 In office Testing [id number] 1.00CD:127 Normal [facility] CBC AUTO DIFFon 07-30-2022 BASO # 0.1 103/ul Normal 0.0-0.1 [facility] Comment on above: Performed By: #### U RCX #### [facility] [address] [place] [address] Dr. Caitlin Martinez Basophils/100 WBC (Bld) 1.1 % Normal 0.2-2.0 [facility] Comment on above: Performed By: #### U RCX #### [facility] [address] [place] [address] Dr. Caitlin Martinez EO # 0.3 103/ul Normal 0.0-0.7 [facility] Comment on above: Performed By: #### U RCX #### [facility] [address] [place] [address] Dr. Caitlin Martinez Eosinophils/100 WBC (Bld) 4.7 % Normal 0.9-7.0 [facility] Comment on above: Performed By: #### U RCX #### [facility] [address] [place] [address] Dr. Caitlin Martinez Erythrocyte distribution width (RBC) [Ratio] 14.7 % Normal 11.0-15.0 [facility] Comment on above: Performed By: #### U RCX #### [facility] [address] [place] [address] Dr. Caitlin Martinez Hematocrit (Bld) [Volume fraction] 39.3 % Normal 36.0-48.0 [facility] Comment on above: Performed By: #### U RCX #### [facility] [address] [place] [address] Dr. Caitlin Martinez Hemoglobin (Bld) [Mass/Vol] 12.7 g/dL Normal 12.0-16.0 [facility] Comment on above: Performed By: #### U RCX #### [facility] [address] [address] [address] Caitlin Martinez IG # 0.02 10e3/ul Normal 0.00-0.03 [facility] Comment on above: Performed By: #### U RCX #### [facility] [address] [place] [address] Dr. Caitlin Martinez IG % 0.3 % Normal 0.0-0.5 [facility] Comment on above: Performed By: #### U RCX #### [facility] [address] [place] [address] Dr. Caitlin Martinez LYMPH # 2.5 103/ul Normal 1.2-3.8 [facility] Comment on above: Performed By: #### U RCX #### [facility] [address] [place] [address] Dr. Caitlin Martinez Lymphocytes/100 WBC (Bld) 34.5 % Normal 20.5-60.0 [facility] Comment on above: Performed By: #### U RCX #### [facility] [address] [place] [address] Dr. Caitlin Martinez MANUAL DIFF REQ NO Normal [facility] Comment on above: Performed By: #### U RCX #### [facility] [address] [place] [address] Dr. Caitlin Martinez MCH (RBC) [Entitic mass] 27.3 pg Normal 26.7-34.0 [facility] Comment on above: Performed By: #### U RCX #### [facility] [address] [place] [address] Dr. Caitlin Martinez MCHC (RBC) [Mass/Vol] 32.3 g/dL Normal 29.9-35.2 [facility] Comment on above: Performed By: #### U RCX #### [facility] [address] [place] [address] Dr. Caitlin Martinez MCV (RBC) [Entitic vol] 84.5 fL Normal 81.0-99.0 [facility] Comment on above: Performed By: #### U RCX #### [facility] [address] [address] [address] Caitlin Martinez MONO # 0.5 103/ul Normal 0.3-0.8 [facility] Comment on above: Performed By: #### U RCX #### [facility] [address] [address] [address] Caitlin Martinez Monocytes/100 WBC (Bld) 7.3 % Normal 1.7-12.0 [facility] Comment on above: Performed By: #### U RCX #### [facility] [address] [place] [address] Dr. Caitlin Martinez NEUT # 3.8 103/ul Normal 1.4-6.5 [facility] Comment on above: Performed By: #### U RCX #### [facility] [address] [place] [address] Dr. Caitlin Martinez Neutrophils/100 WBC (Bld) 52.1 % Normal 43.0-75.0 [facility] Comment on above: Performed By: #### U RCX #### [facility] [address] [place] [address] Dr. Caitlin Martinez Platelet mean volume (Bld) [Entitic vol] 9.0 fL Critically low 9.5-13.5 [facility] Comment on above: Performed By: #### U RCX #### [facility] [address] [place] [address] Dr. Caitlin Martinez PLT 368 103/ul Normal 150-450 [facility] Comment on above: Performed By: #### U RCX #### [facility] [address] [place] [address] Dr. Caitlin Martinez RBC 4.65 106/ul Normal 4.20-5.40 [facility] Comment on above: Performed By: #### U RCX #### [facility] [address] [place] [address] Dr. Caitlin Martinez WBC 7.2 103/ul Normal 4.0-11.0 [facility] Comment on above: Performed By: #### U RCX #### [facility] [address] [address] [address] Caitlin Martinez IRONon 07-30-2022 Iron [Mass/Vol] 43.0 ug/dL Critically low 50.0-170.0 [facility] Comment on above: Performed By: #### U RCX #### [facility] [address] [place] [address] Dr. Caitlin Martinez PAP ACOG PANEL 2: 21 to 29on 07-30-2022 . . Normal [facility] Comment on above: Performed By: #### U RCX #### [facility] [address] [place] [address] Dr. Caitlin Martinez Age Gdln ACOG Testing - [facility] Comment on above: Performed By: #### U RCX #### [facility] [address] [place] [address] Dr. Caitlin Martinez DIAGNOSIS: Comment [facility] Comment on above: Result Comment: NEGA TIVE FOR INTRAEPITHELIAL LESION OR MALIGNANCY. Performed By: #### U RCX #### [facility] [address] [place] [address] Dr. Caitlin Martinez Methodology: Comment [facility] Comment on above: Result Comment: This liquid based ThinPrep(R) pap test was screened with the use of an image guided system. Performed By: #### U RCX #### [facility] [address] [place] [address] Dr. Caitlin Martinez Note: Comment [facility] [...] . Performed By: #### U RCX #### [facility] [address] [place] [address] Dr. Caitlin Martinez Performed by: Comment Normal [facility] Comment on above: Result Comment: Bhavna Cormier, Enterprise Systems Architect (ASCP) Performed By: #### U RCX #### [facility] [address] [place] [address] Dr. Caitlin Martinez Reflex Criteria: Comment Normal [facility] Comment on above: Result Comment: The HPV DNA reflex criteria were not met with this specimen result therefore, no HPV testing was performed. . Performed By: #### U RCX #### [facility] [address] [place] [address] Dr. Caitlin Martinez Specimen adequacy: Comment Normal [facility] Comment on above: Result Comment: Sati sfactory for evaluation. Endocervical and/or squamous metaplastic cells (endocervical component) are present. Performed By: #### U RCX #### [facility] [address] [place] [address] Dr. Caitlin Maritnez INSULINon 04-19-2022 Insulin 9.1 uIU/mL Normal 2.6-24.9 [facility] Comment on above: Performed By: #### I HORACIO #### [facility] [address] [place] [address] Dr. Caitlin Martinez CBC AUTO DIFFon 04-18-2022 BASO # 0.1 103/ul Normal 0.0-0.1 [facility] Comment on above: Performed By: #### U RCX #### [facility] [address] [place] [address] Dr. Caitlin Martinez Basophils/100 WBC (Bld) 1.0 % Normal 0.2-2.0 [facility] Comment on above: Performed By: #### U RCX #### [facility] [address] [place] [address] Dr. Caitlin Martinez EO # 0.3 103/ul Normal 0.0-0.7 [facility] Comment on above: Performed By: #### U RCX #### [facility] [address] [place] [address] Dr. Caitlin Martinez Eosinophils/100 WBC (Bld) 4.1 % Normal 0.9-7.0 [facility] Comment on above: Performed By: #### U RCX #### [facility] [address] [place] [address] Dr. Caitlin Martinez Erythrocyte distribution width (RBC) [Ratio] 16.0 % Critically high 11.0-15.0 [facility] Comment on above: Performed By: #### U RCX #### [facility] [address] [place] [address] Dr. Caitlin Martinez Hematocrit (Bld) [Volume fraction] 35.7 % Critically low 36.0-48.0 [facility] Comment on above: Performed By: #### U RCX #### [facility] [address] [place] [address] Dr. Caitlin Martinez Hemoglobin (Bld) [Mass/Vol] 10.9 g/dL Critically low 12.0-16.0 [facility] Comment on above: Performed By: #### U RCX #### [facility] [address] [place] [address] Dr. Caitlin Martinez IG # 0.07 10e3/ul Critically high 0.00-0.03 [facility] Comment on above: Performed By: #### U RCX #### [facility] [address] [place] [address] Dr. Caitlin Martinez IG % 1.0 % Critically high 0.0-0.5 [facility] Comment on above: Performed By: #### U RCX #### [facility] [address] [place] [address] Dr. Caitlin Martinez LYMPH # 2.3 103/ul Normal 1.2-3.8 [facility] Comment on above: Performed By: #### U RCX #### [facility] [address] [place] [address] Dr. Caitlin Martinez Lymphocytes/100 WBC (Bld) 31.4 % Normal 20.5-60.0 [facility] Comment on above: Performed By: #### U RCX #### [facility] [address] [place] [address] Dr. Caitlin Martinez MANUAL DIFF REQ NO Normal [facility] Comment on above: Performed By: #### U RCX #### [facility] [address] [place] [address] Dr. Caitlin Martinez MCH (RBC) [Entitic mass] 24.8 pg Critically low 26.7-34.0 [facility] Comment on above: Performed By: #### U RCX #### [facility] [address] [place] [address] Dr. Caitlin Martinez MCHC (RBC) [Mass/Vol] 30.5 g/dL Normal 29.9-35.2 [facility] Comment on above: Performed By: #### U RCX #### [facility] [address] [place] [address] Dr. Caitlin Martinez MCV (RBC) [Entitic vol] 81.1 fL Normal 81.0-99.0 [facility] Comment on above: Performed By: #### U RCX #### [facility] [address] [place] [address] Dr. Caitlin Martinez MONO # 0.5 103/ul Normal 0.3-0.8 [facility] Comment on above: Performed By: #### U RCX #### [facility] [address] [place] [address] Dr. Caitlin Martinez Monocytes/100 WBC (Bld) 6.6 % Normal 1.7-12.0 [facility] Comment on above: Performed By: #### U RCX #### [facility] [address] [place] [address] Dr. Caitlin Martinez NEUT # 4.1 103/ul Normal 1.4-6.5 [facility] Comment on above: Performed By: #### U RCX #### [facility] [address] [place] [address] Dr. Caitlin Martinez Neutrophils/100 WBC (Bld) 55.9 % Normal 43.0-75.0 [facility] Comment on above: Performed By: #### U RCX #### [facility] [address] [place] [address] Dr. Caitlin Martinez Platelet mean volume (Bld) [Entitic vol] 9.4 fL Critically low 9.5-13.5 [facility] Comment on above: Performed By: #### U RCX #### [facility] [address] [place] [address] Dr. Caitlin Martinez PLT 369 103/ul Normal 150-450 [facility] Comment on above: Performed By: #### U RCX #### [facility] [address] [place] [address] Dr. Caitlin Martinez RBC 4.40 106/ul Normal 4.20-5.40 [facility] Comment on above: Performed By: #### U RCX #### [facility] [address] [address] [address] Caitlin Martinez WBC 7.3 103/ul Normal 4.0-11.0 [facility] Comment on above: Performed By: #### U RCX #### [facility] [address] [place] [address] Dr. Caitlin Martinez FREE THYROXINE INDEX T7on FTI 2.20 Normal 1.30-4.50 [facility] Comment on above: Performed By: #### I HORACIO #### [facility] [address] [place] [address] Dr. Caitlin Martinez T3U 29.0 % Critically low 30.0-39.0 [facility] Comment on above: Performed By: #### I HORACIO #### [facility] [address] [place] [address] Dr. Caitlin Martinez T4 [Mass/Vol] 7.60 ug/dL Normal 4.80-13.90 [facility] Comment on above: Performed By: #### I HORACIO #### [facility] [address] [place] [address] Dr. Caitlin Martinez GLYCOHEMOGLOBIN A1Con 2021 ADA RECOMMENDATION SEE BELOW Normal [facility] Comment on above: Result Comment: ADA RECOMMENDED LIMIT 4.0 - 6.0 ADA THERAPEUTIC TARGET < 7.0 ACTION SUGGESTED > 7.0 Performed By: #### U RCX #### [facility] [address] [place] [address] Dr. Caitlin Martinez Glucose [Mass/Vol] 97 mg/dL Normal [facility] Comment on above: Performed By: #### U RCX #### [facility] [address] [address] [address] Caitlin Martinez HbA1c (Bld) [Mass fraction] 5.0 % Normal 4.5-6.2 [facility] Comment on above: Performed By: #### U RCX #### [facility] [address] [place] [address] Dr. Caitlin Martinez IRONon 04-18-2022 Iron [Mass/Vol] 35.0 ug/dL Critically low 50.0-170.0 [facility] Comment on above: Performed By: #### I HORACIO #### [facility] [address] [address] [address] Caitlin Martinez LIPID PROFILEon 04-18-2022 CHOL-HDL RATIO NORM SEE BELOW Normal [facility] Comment on above: Result Comment: 3.3 - 4.4 LOW RISK 4.4 - 7.1 AVERAGE RISK 7.1 - 11.0 MODERATE RISK >11.0 HIGH RISK Performed By: #### I HORACIO #### [facility] [address] [place] [address] Dr. Caitlin Martinez Cholesterol [Mass/Vol] 221 mg/dL Critically high <=200 [facility] Comment on above: Performed By: #### I HORACIO #### [facility] [address] [place] [address] Dr. Caitlin Martinez Cholesterol in HDL [Mass/Vol] 67 mg/dL Critically high 40-60 [facility] Comment on above: Performed By: #### I HORACIO #### [facility] [address] [address] [address] Caitlin Martinez Cholesterol in LDL [Mass/Vol] 142.4 mg/dL Normal [facility] Comment on above: Performed By: #### I HORACIO #### [facility] [address] [address] [address] Caitlin Martinez Cholesterol.total/Cho lesterol in HDL [Mass ratio] 3.3 {ratio} Normal [facility] Comment on above: Performed By: #### I HORACIO #### [facility] [address] [address] [address] Caitlin Martinez HDL NORMAL > or = 60 mg/dl - LO W CARDIOVASCULAR RISK <40 mg/dl - HIGH CARDIOVASCULAR RISK Normal [facility] Comment on above: Performed By: #### I HORACIO #### [facility] [address] [place] [address] Dr. Caitlin Martinez LDL CALC NORMAL SEE BELOW Normal [facility] Comment on above: Result Comment: <100 mg/dl OPTIMAL 100 - 129 mg/dl NEAR OR ABOVE OPTIMAL 130 - 159 mg/dl BORDERLINE HIGH 160 - 189 mg/dl HIGH >190 mg/dl VERY HIGH Performed By: #### I HORACIO #### [facility] [address] [address] [address] Caitlin Martinez Triglyceride [Mass/Vol] 58 mg/dL Normal <=150 [facility] Comment on above: Performed By: #### I HORACIO #### [facility] [address] [place] [address] Dr. Caitlin Martinez VLDL CALC 11.6 mg/dL Normal [facility] Comment on above: Performed By: #### I HORACIO #### [facility] [address] [place] [address] Dr. Caitlin Martinez PROF 14(COMP METB)on 022 Albumin [Mass/Vol] 3.8 g/dL Normal 3.4-5.0 [facility] Comment on above: Performed By: #### I HORACIO #### [facility] [address] [place] [address] Dr. Caitlin Martinez Albumin/Globulin [Mass ratio] 1.1 {ratio} Normal [facility] Comment on above: Performed By: #### I HORACIO #### [facility] [address] [place] [address] Dr. Caitlin Martinez ALP [Catalytic activity/Vol] 132 U/L Critically high 46-116 [facility] Comment on above: Performed By: #### I HORACIO #### [facility] [address] [place] [address] Dr. Caitlin Martinez ALT [Catalytic activity/Vol] 55 U/L Normal 14-59 [facility] Comment on above: Performed By: #### I HORACIO #### [facility] [address] [place] [address] Dr. Caitlin Martinez Anion gap [Moles/Vol] 12.6 mmol/L Normal [facility] Comment on above: Performed By: #### I HORACIO #### [facility] [address] [address] [address] Caitlin Martinez AST [Catalytic activity/Vol] 27 U/L Normal 15-37 [facility] Comment on above: Performed By: #### I HORACIO #### [facility] [address] [address] [address] Caitlin Martinez Bilirubin [Mass/Vol] 0.6 mg/dL Normal 0.2-1.0 [facility] Comment on above: Performed By: #### I HORACIO #### [facility] [address] [place] [address] Dr. Caitlin Martinez Calcium [Mass/Vol] 9.1 mg/dL Normal 8.5-10.1 [facility] Comment on above: Performed By: #### I HORACIO #### [facility] [address] [address] [address] Caitlin Martinez Chloride [Moles/Vol] 106 mmol/L Normal 98-107 [facility] Comment on above: Performed By: #### I HORACIO #### [facility] [address] [address] [address] Caitlin Martinez CO2 [Moles/Vol] 26.5 mmol/L Normal 21.0-32.0 [facility] Comment on above: Performed By: #### I HORACIO #### [facility] [address] [address] [address] Caitlin Martinez Creatinine [Mass/Vol] 0.63 mg/dL Normal 0.55-1.02 [facility] Comment on above: Performed By: #### I HORACIO #### [facility] [address] [place] [address] Dr. Caitlin Martinez EGFR-AF MOLDOVAN >60 Normal >=60 [facility] Comment on above: Performed By: #### I HORACIO #### [facility] [address] [address] [address] Caitlin Martinez EGFR-NON AF MOLDOVAN >60 Normal >=60 [facility] Comment on above: Performed By: #### I HORACIO #### [facility] [address] [address] [address] Caitlin Martinez Globulin (S) [Mass/Vol] 3.6 g/dL Normal [facility] Comment on above: Performed By: #### I HORACIO #### [facility] [address] [address] [address] Caitlin Martinez Glucose [Mass/Vol] 98 mg/dL Normal 74-106 [facility] Comment on above: Performed By: #### I HORACIO #### [facility] [address] [address] [address] Caitlin Martinez Potassium [Moles/Vol] 4.1 mmol/L Normal 3.5-5.1 [facility] Comment on above: Performed By: #### I HORACIO #### [facility] [address] [place] [address] Dr. Caitlin Martinez Protein [Mass/Vol] 7.4 g/dL Normal 6.4-8.2 [facility] Comment on above: Performed By: #### I HORACIO #### [facility] [address] [address] [address] Caitlin Martinez Sodium [Moles/Vol] 141 mmol/L Normal 136-145 [facility] Comment on above: Performed By: #### I HORACIO #### [facility] [address] [address] [address] Caitlin Martinez Urea nitrogen [Mass/Vol] 9.0 mg/dL Normal 7.0-18.0 [facility] Comment on above: Performed By: #### I HORACIO #### [facility] [address] [address] [address] Caitlin Martinez Urea nitrogen/Creatinine [Mass ratio] 14.3 mg/mg Normal [facility] Comment on above: Performed By: #### I HORACIO #### [facility] [address] [address] [address] Caitlin Martinez TSHon 04-18-2022 TSH 1.349 uIU/mL Normal 0.358-3.740 [facility] Comment on above: Performed By: #### I HORACIO #### [facility] [address] [place] [address] Dr. Caitlin Martinez ANTIBODY ID PANELon 02-15-20 22 ANTIBODY ID PANEL Antibody ID Anti-D Blood Bank Notes most likely due to Rhogam given on 12/01/21 Normal [facility] Comment on above: Performed By: #### D IRCMB, ABID #### [facility] [address] [address] [address] Caitlin Martinez CTA CHEST WO W [...] GAGANDEEP WHEELER Date: 2022-02-10 22:55 Normal [facility] CBC AUTO DIFFon 02-10-2022 BASO # 0.1 103/ul Normal 0.0-0.1 [facility] Comment on above: Performed By: #### C BC #### [facility] [address] [place] [address] Dr. Caitlin Martinez Basophils/100 WBC (Bld) 0.4 % Normal 0.2-2.0 [facility] Comment on above: Performed By: #### C BC #### [facility] [address] [place] [address] Dr. Caitlin Martinez EO # 0.5 103/ul Normal 0.0-0.7 [facility] Comment on above: Performed By: #### C BC #### [facility] [address] [address] [address] Caitlin Martinez Eosinophils/100 WBC (Bld) 4.2 % Normal 0.9-7.0 [facility] Comment on above: Performed By: #### C BC #### [facility] [address] [address] [address] Caitlin Martinez Erythrocyte distribution width (RBC) [Ratio] 14.7 % Normal 11.0-15.0 [facility] Comment on above: Performed By: #### C BC #### [facility] [address] [place] [address] Dr. Caitlin Martinez Hematocrit (Bld) [Volume fraction] 31.1 % Critically low 36.0-48.0 [facility] Comment on above: Performed By: #### C BC #### [facility] [address] [place] [address] Dr. Caitlin Martinez Hemoglobin (Bld) [Mass/Vol] 9.6 g/dL Critically low 12.0-16.0 [facility] Comment on above: Performed By: #### C BC #### [facility] [address] [place] [address] Dr. Caitlin Martinez IG # 0.28 10e3/ul Critically high 0.00-0.03 [facility] Comment on above: Performed By: #### C BC #### [facility] [address] [place] [address] Dr. Caitlin Martinez IG % 2.3 % Critically high 0.0-0.5 [facility] Comment on above: Performed By: #### C BC #### [facility] [address] [place] [address] Dr. Caitlin Martinez LYMPH # 3.3 103/ul Normal 1.2-3.8 [facility] Comment on above: Performed By: #### C BC #### [facility] [address] [place] [address] Dr. Caitlin Mratinez Lymphocytes/100 WBC (Bld) 26.9 % Normal 20.5-60.0 [facility] Comment on above: Performed By: #### C BC #### [facility] [address] [place] [address] Dr. Caitlin Martinez MANUAL DIFF REQ NO Normal [facility] Comment on above: Performed By: #### C BC #### [facility] [address] [place] [address] Dr. Caitlin Martinez MCH (RBC) [Entitic mass] 26.2 pg Critically low 26.7-34.0 [facility] Comment on above: Performed By: #### C BC #### [facility] [address] [place] [address] Dr. Caitlin Martinez MCHC (RBC) [Mass/Vol] 30.9 g/dL Normal 29.9-35.2 [facility] Comment on above: Performed By: #### C BC #### [facility] [address] [place] [address] Dr. Caitlin Martinez MCV (RBC) [Entitic vol] 84.7 fL Normal 81.0-99.0 [facility] Comment on above: Performed By: #### C BC #### [facility] [address] [place] [address] Dr. Caitlin Martinez MONO # 1.1 103/ul Critically high 0.3-0.8 [facility] Comment on above: Performed By: #### C BC #### [facility] [address] [place] [address] Dr. Caitlin Martinez Monocytes/100 WBC (Bld) 8.7 % Normal 1.7-12.0 [facility] Comment on above: Performed By: #### C BC #### [facility] [address] [place] [address] Dr. Caitlin Martinez NEUT # 7.0 103/ul Critically high 1.4-6.[address] [facility] Comment on above: Performed By: #### C BC #### [facility] [address] [place] [address] Dr. Caitlin Martinez Neutrophils/100 WBC (Bld) 57.5 % Normal 43.0-75.0 [facility] Comment on above: Performed By: #### C BC #### [facility] [address] [address] [address] Caitlin Martinez Platelet mean volume (Bld) [Entitic vol] 9.1 fL Critically low 9.5-13.5 [facility] Comment on above: Performed By: #### C BC #### [facility] [address] [address] [address] Caitlin Martinez PLT 437 103/ul Normal 150-450 [facility] Comment on above: Performed By: #### C BC #### [facility] [address] [address] [address] Caitlin Martinez RBC 3.67 106/ul Critically low 4.20-5.40 [facility] Comment on above: Performed By: #### C BC #### [facility] [address] [address] [address] Caitlin Martinez WBC 12.3 103/ul Critically high 4.0-11.0 [facility] Comment on above: Performed By: #### C BC #### [facility] [address] [address] [address] Caitlin Martinez Covid-19 PCR ([facility])on 01-16 SARS-CoV-2 (COVID-19) RNA JONATAN+probe Ql (Unsp spec) Not detected Normal NOT DETECTED [facility] Comment on above: Result Comment: When [...] for this test is supported by the [place] of Health and Human Service's declaration [...] used). Performed By: #### C VDTB #### [facility] [address] [place] [address] Dr. Caitlin Martinez PROF 14(COMP METB)on 022 Albumin [Mass/Vol] 2.1 g/dL Critically low 3.4-5.0 [facility] Comment on above: Performed By: #### U RCX #### [facility] [address] [place] [address] Dr. Caitlin Martinez Albumin/Globulin [Mass ratio] 0.5 {ratio} Normal [facility] Comment on above: Performed By: #### U RCX #### [facility] [address] [place] [address] Dr. Caitlin Martinez ALP [Catalytic activity/Vol] 202 U/L Critically high 46-116 [facility] Comment on above: Performed By: #### U RCX #### [facility] [address] [place] [address] Dr. Caitlin Martinez ALT [Catalytic activity/Vol] 20 U/L Normal 14-59 [facility] Comment on above: Performed By: #### U RCX #### [facility] [address] [place] [address] Dr. Caitlin Martinez Anion gap [Moles/Vol] 11.6 mmol/L Normal [facility] Comment on above: Performed By: #### U RCX #### [facility] [address] [place] [address] Dr. Caitlin Martinez AST [Catalytic activity/Vol] 17 U/L Normal 15-37 [facility] Comment on above: Performed By: #### U RCX #### [facility] [address] [place] [address] Dr. Caitlin Martinez Bilirubin [Mass/Vol] 0.3 mg/dL Normal 0.2-1.0 [facility] Comment on above: Performed By: #### U RCX #### [facility] [address] [place] [address] Dr. Caitlin Martinez Calcium [Mass/Vol] 9.2 mg/dL Normal 8.5-10.1 [facility] Comment on above: Performed By: #### U RCX #### [facility] [address] [place] [address] Dr. Caitlin Martinez Chloride [Moles/Vol] 104 mmol/L Normal 98-107 [facility] Comment on above: Performed By: #### U RCX #### [facility] [address] [place] [address] Dr. Caitiln Martinez CO2 [Moles/Vol] 26.9 mmol/L Normal 21.0-32.0 [facility] Comment on above: Performed By: #### U RCX #### [facility] [address] [place] [address] Dr. Caitlin Martinez Creatinine [Mass/Vol] 0.56 mg/dL Normal 0.55-1.02 [facility] Comment on above: Performed By: #### U RCX #### [facility] [address] [place] [address] Dr. Caitlin Martinez EGFR-AF MOLDOVAN >60 Normal >=60 [facility] Comment on above: Performed By: #### U RCX #### [facility] [address] [place] [address] Dr. Caitlin Martinez EGFR-NON AF MOLDOVAN >60 Normal >=60 [facility] Comment on above: Performed By: #### U RCX #### [facility] [address] [place] [address] Dr. Caitlin Martinez Globulin (S) [Mass/Vol] 4.4 g/dL Normal [facility] Comment on above: Performed By: #### U RCX #### [facility] [address] [place] [address] Dr. Caitlin Martinez Glucose [Mass/Vol] 108 mg/dL Critically high 74-106 [facility] Comment on above: Performed By: #### U RCX #### [facility] [address] [place] [address] Dr. Caitlin Martinez Potassium [Moles/Vol] 3.5 mmol/L Normal 3.5-5.1 [facility] Comment on above: Performed By: #### U RCX #### [facility] [address] [address] [address] Caitlin Martinez Protein [Mass/Vol] 6.5 g/dL Normal 6.4-8.2 [facility] Comment on above: Performed By: #### U RCX #### [facility] [address] [address] [address] Caitlin Martinez Sodium [Moles/Vol] 139 mmol/L Normal 136-145 [facility] Comment on above: Performed By: #### U RCX #### [facility] [address] [address] [address] Caitlin Martinez Urea nitrogen [Mass/Vol] 7.0 mg/dL Normal 7.0-18.0 [facility] Comment on above: Performed By: #### U RCX #### [facility] [address] [address] [address] Caitlin Martinez Urea nitrogen/Creatinine [Mass ratio] 12.5 mg/mg Normal [facility] Comment on above: Performed By: #### U RCX #### [facility] [address] [address] [address] Caitlin Martinez TROPONIN, HIGH SENSITIVITYon 02-10-2022 HSTROP <4.0 Normal 4.0-51.3 [facility] Comment on above: Result Comment: CUT- OFF POINTS HAVE BEEN ESTABLISHED BASED ON THE FOURTH UNIVERSAL DEFINITIONS OF MYOCARDIAL INFARCTION. THE UPPER REFERENCE LIMIT (URL) OF TROPONIN, DEFINED THE 99TH PERCENTILE OF cTnI DISTRIBUTION IN A REFERENCE POPULATION, HAS BEEN CONFIRMED THE DECISION THRESHOLD FOR IA DIAGNOSIS. Performed By: #### U RCX #### [facility] [address] [address] [address] Caitlin Martinez CBC AUTO DIFFon 02-09-2022 BASO # 0.1 103/ul Normal 0.0-0.1 [facility] Comment on above: Performed By: #### U RCX #### [facility] [address] [address] [address] Caitlin Martinez Basophils/100 WBC (Bld) 0.6 % Normal 0.2-2.0 [facility] Comment on above: Performed By: #### U RCX #### [facility] [address] [place] [address] Dr. Caitlin Martinez EO # 0.3 103/ul Normal 0.0-0.7 [facility] Comment on above: Performed By: #### U RCX #### [facility] [address] [place] [address] Dr. Caitlin Martinez Eosinophils/100 WBC (Bld) 2.3 % Normal 0.9-7.0 [facility] Comment on above: Performed By: #### U RCX #### [facility] [address] [place] [address] Dr. Caitlin Martinez Erythrocyte distribution width (RBC) [Ratio] 14.6 % Normal 11.0-15.0 [facility] Comment on above: Performed By: #### U RCX #### [facility] [address] [place] [address] Dr. Caitlin Martinez Hematocrit (Bld) [Volume fraction] 28.8 % Critically low 36.0-48.0 [facility] Comment on above: Performed By: #### U RCX #### [facility] [address] [place] [address] Dr. Caitlin Martinez Hemoglobin (Bld) [Mass/Vol] 9.0 g/dL Critically low 12.0-16.0 [facility] Comment on above: Performed By: #### U RCX #### [facility] [address] [place] [address] Dr. Caitlin Martinez IG # 0.20 10e3/ul Critically high 0.00-0.03 [facility] Comment on above: Performed By: #### U RCX #### [facility] [address] [place] [address] Dr. Caitlin Martinez IG % 1.5 % Critically high 0.0-0.5 [facility] Comment on above: Performed By: #### U RCX #### [facility] [address] [place] [address] Dr. Caitlin Martinez LYMPH # 3.0 103/ul Normal 1.2-3.8 [facility] Comment on above: Performed By: #### U RCX #### [facility] [address] [place] [address] Dr. Caitlin Martinez Lymphocytes/100 WBC (Bld) 22.2 % Normal 20.5-60.0 [facility] Comment on above: Performed By: #### U RCX #### [facility] [address] [place] [address] Dr. Caitlin Martinez MANUAL DIFF REQ NO Normal [facility] Comment on above: Performed By: #### U RCX #### [facility] [address] [place] [address] Dr. Caitlin Martinez MCH (RBC) [Entitic mass] 26.2 pg Critically low 26.7-34.0 [facility] Comment on above: Performed By: #### U RCX #### [facility] [address] [place] [address] Dr. Caitlin Martinez MCHC (RBC) [Mass/Vol] 31.3 g/dL Normal 29.9-35.2 [facility] Comment on above: Performed By: #### U RCX #### [facility] [address] [place] [address] Dr. Caitlin Martinez MCV (RBC) [Entitic vol] 83.7 fL Normal 81.0-99.0 [facility] Comment on above: Performed By: #### U RCX #### [facility] [address] [place] [address] Dr. Caitlin Martinez MONO # 1.3 103/ul Critically high 0.3-0.8 [facility] Comment on above: Performed By: #### U RCX #### [facility] [address] [place] [address] Dr. Caitlin Martinez Monocytes/100 WBC (Bld) 9.8 % Normal 1.7-12.0 [facility] Comment on above: Performed By: #### U RCX #### [facility] [address] [place] [address] Dr. Caitlin Martinez NEUT # 8.5 103/ul Critically high 1.4-6.5 [facility] Comment on above: Performed By: #### U RCX #### [facility] [address] [place] [address] Dr. Caitlin Martinez Neutrophils/100 WBC (Bld) 63.6 % Normal 43.0-75.0 [facility] Comment on above: Performed By: #### U RCX #### [facility] [address] [place] [address] Dr. Caitlin Martinez Platelet mean volume (Bld) [Entitic vol] 9.1 fL Critically low 9.5-13.5 [facility] Comment on above: Performed By: #### U RCX #### [facility] [address] [place] [address] Dr. Caitlin Martinez PLT 355 103/ul Normal 150-450 [facility] Comment on above: Performed By: #### U RCX #### [facility] [address] [place] [address] Dr. Caitlin Martinez RBC 3.44 106/ul Critically low 4.20-5.[address] [facility] Comment on above: Performed By: #### U RCX #### [facility] [address] [place] [address] Dr. Caitlin Martinez WBC 13.3 103/ul Critically high 4.0-11.0 [facility] Comment on above: Performed By: #### U RCX #### [facility] [address] [place] [address] Dr. Caitlin Martinez SCREENon 02-09-2022 SCREEN Negative Normal [facility] Comment on above: Performed By: #### F ETSCRN #### [facility] [address] [place] [address] Dr. Caitlin Martinez CBC AUTO DIFFon 02-08-2022 BASO # 0.1 103/ul Normal 0.0-0.1 [facility] Comment on above: Performed By: #### U RCX #### [facility] [address] [place] [address] Dr. Caitlin Martinez Basophils/100 WBC (Bld) 0.4 % Normal 0.2-2.0 [facility] Comment on above: Performed By: #### U RCX #### [facility] [address] [place] [address] Dr. Caitlin Martinez EO # 0.3 103/ul Normal 0.0-0.7 [facility] Comment on above: Performed By: #### U RCX #### [facility] [address] [place] [address] Dr. Caitlin Martinez Eosinophils/100 WBC (Bld) 2.6 % Normal 0.9-7.0 [facility] Comment on above: Performed By: #### U RCX #### [facility] [address] [place] [address] Dr. Caitlin Martinez Erythrocyte distribution width (RBC) [Ratio] 14.7 % Normal 11.0-15.0 [facility] Comment on above: Performed By: #### U RCX #### [facility] [address] [place] [address] Dr. Caitlin Martinez Hematocrit (Bld) [Volume fraction] 30.6 % Critically low 36.0-48.0 [facility] Comment on above: Performed By: #### U RCX #### [facility] [address] [place] [address] Dr. Caitlin Martinez Hemoglobin (Bld) [Mass/Vol] 9.7 g/dL Critically low 12.0-16.0 [facility] Comment on above: Performed By: #### U RCX #### [facility] [address] [place] [address] Dr. Caitlin Martinez IG # 0.15 10e3/ul Critically high 0.00-0.03 [facility] Comment on above: Performed By: #### U RCX #### [facility] [address] [place] [address] Dr. Caitlin Martinez IG % 1.3 % Critically high 0.0-0.5 [facility] Comment on above: Performed By: #### U RCX #### [facility] [address] [place] [address] Dr. Caitlin Martinez LYMPH # 2.8 103/ul Normal 1.2-3.8 [facility] Comment on above: Performed By: #### U RCX #### [facility] [address] [place] [address] Dr. Caitlin Martinez Lymphocytes/100 WBC (Bld) 24.8 % Normal 20.5-60.0 [facility] Comment on above: Performed By: #### U RCX #### [facility] [address] [place] [address] Dr. Caitlin Martinez MANUAL DIFF REQ NO Normal [facility] Comment on above: Performed By: #### U RCX #### [facility] [address] [place] [address] Dr. Caitlin Martinez MCH (RBC) [Entitic mass] 26.6 pg Critically low 26.7-34.0 [facility] Comment on above: Performed By: #### U RCX #### [facility] [address] [place] [address] Dr. Caitlin Martinez MCHC (RBC) [Mass/Vol] 31.7 g/dL Normal 29.9-35.2 [facility] Comment on above: Performed By: #### U RCX #### [facility] [address] [place] [address] Dr. Caitlin Martinez MCV (RBC) [Entitic vol] 83.8 fL Normal 81.0-99.0 [facility] Comment on above: Performed By: #### U RCX #### [facility] [address] [place] [address] Dr. Caitlin Martinez MONO # 1.0 103/ul Critically high 0.3-0.8 [facility] Comment on above: Performed By: #### U RCX #### [facility] [address] [place] [address] Dr. Caitlin Martinez Monocytes/100 WBC (Bld) 8.7 % Normal 1.7-12.0 [facility] Comment on above: Performed By: #### U RCX #### [facility] [address] [place] [address] Dr. Caitlin Martinez NEUT # 7.0 103/ul Critically high 1.4-6.[address] [facility] Comment on above: Performed By: #### U RCX #### [facility] [address] [place] [address] Dr. Caitlin Martinez Neutrophils/100 WBC (Bld) 62.2 % Normal 43.0-75.0 [facility] Comment on above: Performed By: #### U RCX #### [facility] [address] [place] [address] Dr. Caitlin Martinez Platelet mean volume (Bld) [Entitic vol] 9.0 fL Critically low 9.5-13.5 [facility] Comment on above: Performed By: #### U RCX #### [facility] [address] [place] [address] Dr. Caitlin Martinez PLT 373 103/ul Normal 150-450 [facility] Comment on above: Performed By: #### U RCX #### [facility] [address] [place] [address] Dr. Caitlin Martinez RBC 3.65 106/ul Critically low 4.20-5.[address] [facility] Comment on above: Performed By: #### U RCX #### [facility] [address] [place] [address] Dr. Caitlin Martinez WBC 11.3 103/ul Critically high 4.0-11.0 [facility] Comment on above: Performed By: #### U RCX #### [facility] [address] [place] [address] Dr. Caitlin Martinez Covid-19 PCR ([facility])on 01-16 SARS-CoV-2 (COVID-19) RNA JONATAN+probe Ql (Unsp spec) Not detected Normal NOT DETECTED [facility] Comment on above: Result Comment: When [...] for this test is supported by the [place] of Health and Human Service's declaration that [...] used). Performed By: #### C BC #### [facility] [address] [place] [address] Dr. Caitlin Martinez DIRECT COOMBSon 02-08-2022 DIRECT EDWINA Negative Normal [facility] Comment on above: Performed By: #### D IRCMB, ABID #### [facility] [address] [place] [address] Dr. Caitlin Martinez DRUG SCREEN RAPID (URINE)on 02-08-2022 AMP Negative Normal NEGATIVE [facility] Comment on above: Performed By: #### C BC #### [facility] [address] [place] [address] Dr. Caitlin Martinez BAR Negative Normal NEGATIVE [facility] Comment on above: Performed By: #### C BC #### [facility] [address] [place] [address] Dr. Caitlin Martinez BUP Negative Normal NEGATIVE [facility] Comment on above: Performed By: #### C BC #### [facility] [address] [place] [address] Dr. Caitlin Martinez BZO Negative Normal NEGATIVE [facility] Comment on above: Performed By: #### C BC #### [facility] [address] [place] [address] Dr. Caitlin Martinez JEANNA Negative Normal NEGATIVE [facility] Comment on above: Performed By: #### C BC #### [facility] [address] [place] [address] Dr. Caitlin Martinez CUT-OFFS SEE BELOW Normal [facility] Comment on above: Result [...] ng/mL Performed By: #### C BC #### [facility] [address] [place] [address] Dr. Caitlin Martinez DRUG CUT HEADER DRUG CLASS TEST SYSTEM CUT-OFF CONCENTRATIONS ARE FOLLOWS: Normal [facility] Comment on above: Performed By: #### C BC #### [facility] [address] [place] [address] Dr. Caitlin Martinez mAMP Negative Normal NEGATIVE [facility] Comment on above: Performed By: #### C BC #### [facility] [address] [place] [address] Dr. Caitlin Martinez MTD Negative Normal NEGATIVE [facility] Comment on above: Performed By: #### C BC #### [facility] [address] [place] [address] Dr. Caitlin Martinez OPI Negative Normal NEGATIVE [facility] Comment on above: Performed By: #### C BC #### [facility] [address] [place] [address] Dr. Caitlin Martinez OXY Negative Normal NEGATIVE [facility] Comment on above: Performed By: #### C BC #### [facility] [address] [place] [address] Dr. Caitlin Martinez PCP Negative Normal NEGATIVE [facility] Comment on above: Performed By: #### C BC #### [facility] [address] [place] [address] Dr. Caitlin Martinez PPX Negative Normal NEGATIVE [facility] Comment on above: Performed By: #### C BC #### [facility] [address] [place] [address] Dr. Caitlin Martinez TCA Negative Normal NEGATIVE [facility] Comment on above: Performed By: #### C BC #### [facility] [address] [place] [address] Dr. Caitlin Martinez THC Negative Normal NEGATIVE [facility] Comment on above: Performed By: #### C BC #### [facility] [address] [place] [address] Dr. Caitlin Martinez TYPE AND SCREENon 02-08-2022 TYPE AND SCREEN Negative Normal [facility] Comment on above: Performed By: #### I HORACIO #### [facility] [address] [place] [address] Dr. Caitlin Martinez US PREG BIOPHY W [...] profile score 8.0. Electronically authenticated by: DAVID BLCAKMON Date: 2022-02-05 16:28 Normal [facility] AMNISUREon 01-25-2022 AMNISURE Negative Normal NEGATIVE [facility] Comment on above: Performed By: #### A MNI #### [facility] [address] [place] [address] Dr. Caitlin Martinez CULTURE URINEon 01-25-2022 CULTURE URINE Culture Observations : No growth Normal [facility] Comment on above: Performed By: #### U RCX #### [facility] [address] [place] [address] Dr. Caitlin Martinez UA (CLEAN/CATCH) FAMILY SERVICE COUNSELOR/MICRO I F IND.on 01-25-2022 Bilirubin Ql (U) Negative Normal NEGATIVE [facility] Comment on above: Performed By: #### C VDTBH #### [facility] [address] [place] [address] Dr. Caitlin Martinez Clarity (U) SL CLOUDY Abnormal CLEAR [facility] Comment on above: Performed By: #### C VDTBH #### [facility] [address] [place] [address] Dr. Caitlin Martinez Color (U) LT. YELLOW Normal YELLOW [facility] Comment on above: Performed By: #### C VDTBH #### [facility] [address] [place] [address] Dr. Caitlin Martinez Glucose Ql (U) Negative Normal NEGATIVE [facility] Comment on above: Performed By: #### C VDTBH #### [facility] [address] [place] [address] Dr. Caitlin Martinez Hemoglobin Ql (U) TRACE-INTACT Abnormal NEGATIVE [facility] Comment on above: Performed By: #### C VDTBH #### [facility] [address] [place] [address] Dr. Caitlin Martinez Ketones Ql (U) Negative Normal NEGATIVE [facility] Comment on above: Performed By: #### C VDTBH #### [facility] [address] [place] [address] Dr. Caitlin Martinez LEUKOCYTES TRACE Abnormal NEGATIVE [facility] Comment on above: Performed By: #### C VDTBH #### [facility] [address] [place] [address] Dr. Caitlin Martinez Nitrite Ql (U) Negative Normal NEGATIVE [facility] Comment on above: Performed By: #### C VDTBH #### [facility] [address] [place] [address] Dr. Caitlin Martinez pH (U) 6.5 [pH] Normal 5-9 [facility] Comment on above: Performed By: #### C VDTBH #### [facility] [address] [place] [address] Dr. Caitlin Martinez SPEC GRAVITY 1.020 Normal 1.005-<=1.025 [facility] Comment on above: Performed By: #### C VDTBH #### [facility] [address] [place] [address] Dr. Caitlin Martinez UA PROTEIN Negative Normal NEGATIVE/ TRACE [facility] Comment on above: Performed By: #### C VDTBH #### [facility] [address] [place] [address] Dr. Caitlin Martinez UR MICRO IND INDICATED Normal [facility] Comment on above: Performed By: #### C VDTBH #### [facility] [address] [place] [address] Dr. Caitlin Martinez Urobilinogen Qn (U) 0.2 {Barbara'U}/dL Normal 0.2 - 1. 0 [facility] Comment on above: Performed By: #### C VDTBH #### [facility] [address] [place] [address] Dr. Caitlin Martinez URINE MICROSCOPIC ONLYon BACTERIA MODERATE Abnormal NONE SEEN [facility] Comment on above: Performed By: #### C VDTBH #### [facility] [address] [place] [address] Dr. Caitlin Martinez Bacteria identified Cx Nom (U) INDICATED Normal [facility] Comment on above: Performed By: #### C VDTBH #### [facility] [address] [place] [address] Dr. Caitlin Martinez CAST NONE SEEN Normal NONE SEEN [facility] Comment on above: Performed By: #### C VDTBH #### [facility] [address] [place] [address] Dr. Caitlin Martinez Crystals LM Nom (Urine sed) NONE SEEN Normal NONE SEEN [facility] Comment on above: Performed By: #### C VDTBH #### [facility] [address] [place] [address] Dr. Caitlin Martinez Epithelial cells LM Ql (Urine sed) FEW Abnormal NONE SEEN /RARE [facility] Comment on above: Performed By: #### C VDTBH #### [facility] [address] [place] [address] Dr. Caitlin Martinez MUCOUS TRACE Abnormal NONE SEEN [facility] Comment on above: Performed By: #### C VDTBH #### [facility] [address] [place] [address] Dr. Caitlin Martinez RBC 2-5 Abnormal 0-2 [facility] Comment on above: Performed By: #### C VDTBH #### [facility] [address] [place] [address] Dr. Caitlin Martinez WBC 0-2 Abnormal NONE SEEN [facility] Comment on above: Performed By: #### C VDTBH #### [facility] [address] [place] [address] Dr. Caitlin Martinez AMYLASEon 01-16-2022 Amylase [Catalytic activity/Vol] 49 U/L Normal 25-115 [facility] Comment on above: Performed By: #### C VDTBH #### [facility] [address] [place] [address] Dr. Caitlin Martinez BUNon 01-16-2022 Urea nitrogen [Mass/Vol] 3.0 mg/dL Critically low 7.0-18.0 [facility] Comment on above: Performed By: #### C BC #### [facility] [address] [place] [address] Dr. Caitlin Martinez CBC AUTO DIFFon 01-16-2022 BASO # 0.1 103/ul Normal 0.0-0.1 [facility] Comment on above: Performed By: #### U RCX #### [facility] [address] [place] [address] Dr. Caitlin Martinez Basophils/100 WBC (Bld) 0.6 % Normal 0.2-2.0 [facility] Comment on above: Performed By: #### U RCX #### [facility] [address] [place] [address] Dr. Caitlin Martinez EO # 0.3 103/ul Normal 0.0-0.7 [facility] Comment on above: Performed By: #### U RCX #### [facility] [address] [place] [address] Dr. Caitlin Martinez Eosinophils/100 WBC (Bld) 2.6 % Normal 0.9-7.0 [facility] Comment on above: Performed By: #### U RCX #### [facility] [address] [place] [address] Dr. Caitlin Martinez Erythrocyte distribution width (RBC) [Ratio] 14.4 % Normal 11.0-15.0 [facility] Comment on above: Performed By: #### U RCX #### [facility] [address] [place] [address] Dr. Caitlin Martinez Hematocrit (Bld) [Volume fraction] 28.4 % Critically low 36.0-48.0 [facility] Comment on above: Performed By: #### U RCX #### [facility] [address] [place] [address] Dr. Caitlin Martinez Hemoglobin (Bld) [Mass/Vol] 9.0 g/dL Critically low 12.0-16.0 [facility] Comment on above: Performed By: #### U RCX #### [facility] [address] [place] [address] Dr. Caitlin Martinez IG # 0.11 10e3/ul Critically high 0.00-0.03 [facility] Comment on above: Performed By: #### U RCX #### [facility] [address] [place] [address] Dr. Caitlin Martinez IG % 1.1 % Critically high 0.0-0.5 [facility] Comment on above: Performed By: #### U RCX #### [facility] [address] [place] [address] Dr. Caitlin Martinez LYMPH # 2.2 103/ul Normal 1.2-3.8 [facility] Comment on above: Performed By: #### U RCX #### [facility] [address] [place] [address] Dr. Caitlin Martinez Lymphocytes/100 WBC (Bld) 21.0 % Normal 20.5-60.0 [facility] Comment on above: Performed By: #### U RCX #### [facility] [address] [place] [address] Dr. Caitlin Martinez MANUAL DIFF REQ NO Normal [facility] Comment on above: Performed By: #### U RCX #### [facility] [address] [place] [address] Dr. Caitlin Martinez MCH (RBC) [Entitic mass] 28.2 pg Normal 26.7-34.0 [facility] Comment on above: Performed By: #### U RCX #### [facility] [address] [address] [address] Caitlin Martinez MCHC (RBC) [Mass/Vol] 31.7 g/dL Normal 29.9-35.2 [facility] Comment on above: Performed By: #### U RCX #### [facility] [address] [place] [address] Dr. Caitlin Martinez MCV (RBC) [Entitic vol] 89.0 fL Normal 81.0-99.0 [facility] Comment on above: Performed By: #### U RCX #### [facility] [address] [place] [address] Dr. Caitlin Martinez MONO # 0.9 103/ul Critically high 0.3-0.[address] [facility] Comment on above: Performed By: #### U RCX #### [facility] [address] [place] [address] Dr. Caitlin Martinez Monocytes/100 WBC (Bld) 8.9 % Normal 1.7-12.0 [facility] Comment on above: Performed By: #### U RCX #### [facility] [address] [place] [address] Dr. Caitlin Martinez NEUT # 6.8 103/ul Critically high 1.4-6.[address] [facility] Comment on above: Performed By: #### U RCX #### [facility] [address] [place] [address] Dr. Caitlin Martinez Neutrophils/100 WBC (Bld) 65.8 % Normal 43.0-75.0 [facility] Comment on above: Performed By: #### U RCX #### [facility] [address] [place] [address] Dr. Caitlin Martinez Platelet mean volume (Bld) [Entitic vol] 8.6 fL Critically low 9.5-13.5 [facility] Comment on above: Performed By: #### U RCX #### [facility] [address] [address] [address] Caitlin Martinez PLT 322 103/ul Normal 150-450 [facility] Comment on above: Performed By: #### U RCX #### [facility] [address] [place] [address] Dr. Caitlin Martinez RBC 3.19 106/ul Critically low 4.20-5.[address] [facility] Comment on above: Performed By: #### U RCX #### [facility] [address] [place] [address] Dr. Caitlin Martinez WBC 10.3 103/ul Normal 4.0-11.0 [facility] Comment on above: Performed By: #### U RCX #### [facility] [address] [place] [address] Dr. Caitlin Martinez CREATININEon 01-16-2022 Creatinine [Mass/Vol] 0.55 mg/dL Normal 0.55-1.02 [facility] Comment on above: Performed By: #### C VDTBH #### [facility] [address] [place] [address] Dr. Caitlin Martinez EGFR-AF MOLDOVAN >60 Normal >=60 [facility] Comment on above: Performed By: #### C VDTBH #### [facility] [address] [place] [address] Dr. Caitlin Martinez EGFR-NON AF MOLDOVAN >60 Normal >=60 [facility] Comment on above: Performed By: #### C VDTBH #### [facility] [address] [place] [address] Dr. Caitlin Martinez ELECTROLYTESon 01-16-2022 Anion gap [Moles/Vol] 13.6 mmol/L Normal [facility] Comment on above: Performed By: #### C VDTBH #### [facility] [address] [place] [address] Dr. Caitlin Martinez Chloride [Moles/Vol] 106 mmol/L Normal 98-107 [facility] Comment on above: Performed By: #### C VDTBH #### [facility] [address] [place] [address] Dr. Caitlin Martinez CO2 [Moles/Vol] 22.9 mmol/L Normal 21.0-32.0 [facility] Comment on above: Performed By: #### C VDTBH #### [facility] [address] [place] [address] Dr. Caitlin Martinez Potassium [Moles/Vol] 3.5 mmol/L Normal 3.5-5.1 [facility] Comment on above: Performed By: #### C VDTBH #### [facility] [address] [place] [address] Dr. Caitlin Martinez Sodium [Moles/Vol] 139 mmol/L Normal 136-145 [facility] Comment on above: Performed By: #### C VDTBH #### [facility] [address] [place] [address] Dr. Caitlin Martinez LIPASEon 01-16-2022 Lipase [Catalytic activity/Vol] 66.0 U/L Critically low 73.0-393.0 [facility] Comment on above: Performed By: #### C BC #### [facility] [address] [place] [address] Dr. Caitlin RHODESOTon 01-16-2022 AST [Catalytic activity/Vol] 12 U/L Critically low 15-37 [facility] Comment on above: Performed By: #### C VDTBH #### [facility] [address] [place] [address] Dr. Caitlin Martinez SGPTon 01-16-2022 ALT [Catalytic activity/Vol] 9 U/L Critically low 14-59 [facility] Comment on above: Performed By: #### C VDTBH #### [facility] [address] [place] [address] Dr. Caitlin Martinez CBC AUTO DIFFon 01-15-2022 BASO # 0.1 103/ul Normal 0.0-0.1 [facility] Comment on above: Performed By: #### C VDTBH #### [facility] [address] [place] [address] Dr. Caitlin Martinez Basophils/100 WBC (Bld) 0.4 % Normal 0.2-2.0 [facility] Comment on above: Performed By: #### C VDTBH #### [facility] [address] [place] [address] Dr. Caitlin Martinez EO # 0.2 103/ul Normal 0.0-0.7 [facility] Comment on above: Performed By: #### C VDTBH #### [facility] [address] [place] [address] Dr. Caitlin Martinez Eosinophils/100 WBC (Bld) 1.4 % Normal 0.9-7.0 [facility] Comment on above: Performed By: #### C VDTBH #### [facility] [address] [place] [address] Dr. Caitlin Martinez Erythrocyte distribution width (RBC) [Ratio] 14.1 % Normal 11.0-15.0 [facility] Comment on above: Performed By: #### C VDTBH #### [facility] [address] [place] [address] Dr. Caitlin Martinez Hematocrit (Bld) [Volume fraction] 28.4 % Critically low 36.0-48.0 [facility] Comment on above: Performed By: #### C VDTBH #### [facility] [address] [place] [address] Dr. Caitlin Martinez Hemoglobin (Bld) [Mass/Vol] 9.0 g/dL Critically low 12.0-16.0 [facility] Comment on above: Performed By: #### C VDTBH #### [facility] [address] [place] [address] Dr. Caitlin Martinez IG # 0.18 10e3/ul Critically high 0.00-0.03 [facility] Comment on above: Performed By: #### C VDTBH #### [facility] [address] [place] [address] Dr. Caitlin Martinez IG % 1.3 % Critically high 0.0-0.5 [facility] Comment on above: Performed By: #### C VDTBH #### [facility] [address] [place] [address] Dr. Caitlin Martinez LYMPH # 2.4 103/ul Normal 1.2-3.8 [facility] Comment on above: Performed By: #### C VDTBH #### [facility] [address] [place] [address] Dr. Caitlin Martinez Lymphocytes/100 WBC (Bld) 16.8 % Critically low 20.5-60.0 [facility] Comment on above: Performed By: #### C VDTBH #### [facility] [address] [place] [address] Dr. Caitlin Martinez MANUAL DIFF REQ NO Normal [facility] Comment on above: Performed By: #### C VDTBH #### [facility] [address] [place] [address] Dr. Caitlin Martinez MCH (RBC) [Entitic mass] 27.9 pg Normal 26.7-34.0 [facility] Comment on above: Performed By: #### C VDTBH #### [facility] [address] [place] [address] Dr. Caitlin Martinez MCHC (RBC) [Mass/Vol] 31.7 g/dL Normal 29.9-35.2 [facility] Comment on above: Performed By: #### C VDTBH #### [facility] [address] [place] [address] Dr. Caitlin Martinez MCV (RBC) [Entitic vol] 87.9 fL Normal 81.0-99.0 [facility] Comment on above: Performed By: #### C VDTBH #### [facility] [address] [place] [address] Dr. Caitlin Martinez MONO # 0.9 103/ul Critically high 0.3-0.[address] [facility] Comment on above: Performed By: #### C VDTBH #### [facility] [address] [place] [address] Dr. Caitlin Martinez Monocytes/100 WBC (Bld) 6.7 % Normal 1.7-12.0 [facility] Comment on above: Performed By: #### C VDTBH #### [facility] [address] [address] [address] Caitlin Martinez NEUT # 10.3 103/ul Critically high 1.4-6.5 [facility] Comment on above: Performed By: #### C VDTBH #### [facility] [address] [place] [address] Dr. Caitlin Martinez Neutrophils/100 WBC (Bld) 73.4 % Normal 43.0-75.0 [facility] Comment on above: Performed By: #### C VDTBH #### [facility] [address] [place] [address] Dr. Caitlin Martinez Platelet mean volume (Bld) [Entitic vol] 9.0 fL Critically low 9.5-13.5 [facility] Comment on above: Performed By: #### C VDTBH #### [facility] [address] [place] [address] Dr. Caitlin Martinez PLT 318 103/ul Normal 150-450 [facility] Comment on above: Performed By: #### C VDTBH #### [facility] [address] [place] [address] Dr. Caitlin Martinez RBC 3.23 106/ul Critically low 4.20-5.[address] [facility] Comment on above: Performed By: #### C VDTBH #### [facility] [address] [place] [address] Dr. Caitlin Martinez WBC 14.0 103/ul Critically high 4.0-11.0 [facility] Comment on above: Performed By: #### C VDTBH #### [facility] [address] [place] [address] ABD/PELVIS WO CONon [...] DAVID BLACKMON Date: 2022-01-15 16:31 Normal [facility] CULTURE URINEon 01-15-2022 CULTURE URINE Culture Observations : LIGHT GROWTH OF MIXED GENITAL COSME. NO POTENTIAL PATHOGENS SEEN. Normal [facility] Comment on above: Performed By: #### U RCX #### [facility] [address] [place] [address] Dr. Caitlin Martinez UA (CLEAN/CATCH) FAMILY SERVICE COUNSELOR/MICRO I F IND.on 01-15-2022 Bilirubin Ql (U) Negative Normal NEGATIVE [facility] Comment on above: Performed By: #### C BC #### [facility] [address] [place] [address] Dr. Caitlin Martinez Clarity (U) CLEAR Normal CLEAR [facility] Comment on above: Performed By: #### C BC #### [facility] [address] [place] [address] Dr. Caitlin Martinez Color (U) LT. YELLOW Normal YELLOW [facility] Comment on above: Performed By: #### C BC #### [facility] [address] [place] [address] Dr. Caitlin Martinez Glucose Ql (U) Negative Normal NEGATIVE [facility] Comment on above: Performed By: #### C BC #### [facility] [address] [place], [place] [id number] Dr. Caitlin Martinez Hemoglobin Ql (U) Negative Normal NEGATIVE [facility] Comment on above: Performed By: #### C BC #### [facility] [address] [place] [address] Dr. Caitlin Martinez Ketones Ql (U) Negative Normal NEGATIVE [facility] Comment on above: Performed By: #### C BC #### [facility] [address] [place] [address] Dr. Caitlin Martinez LEUKOCYTES TRACE Abnormal NEGATIVE [facility] Comment on above: Performed By: #### C BC #### [facility] [address] [place] [address] Dr. Caitlin Martinez Nitrite Ql (U) Negative Normal NEGATIVE [facility] Comment on above: Performed By: #### C BC #### [facility] [address] [place] [address] Dr. Caitlin Martinez pH (U) 7.0 [pH] Normal 5-9 [facility] Comment on above: Performed By: #### C BC #### [facility] [address] [place] [address] Dr. Caitlin Martinez SPEC GRAVITY 1.010 Normal 1.005-<=1.025 [facility] Comment on above: Performed By: #### C BC #### [facility] [address] [place] [address] Dr. Caitlin Martinez UA PROTEIN Negative Normal NEGATIVE/ TRACE [facility] Comment on above: Performed By: #### C BC #### [facility] [address] [place] [address] Dr. Caitlin Martinez UR MICRO IND INDICATED Normal [facility] Comment on above: Performed By: #### C BC #### [facility] [address] [place] [address] Dr. Caitlin Martinez Urobilinogen Qn (U) 0.2 {Barbara'U}/dL Normal 0.2 - 1. 0 [facility] Comment on above: Performed By: #### C BC #### [facility] [address] [place] [address] Dr. Caitlin Martinez URINE MICROSCOPIC ONLYon BACTERIA MODERATE Abnormal NONE SEEN [facility] Comment on above: Performed By: #### C BC #### [facility] [address] [place] [address] Dr. Caitlin Martinez Bacteria identified Cx Nom (U) INDICATED Normal [facility] Comment on above: Performed By: #### C BC #### [facility] [address] [place] [address] Dr. Caitlin Martinez CAST NONE SEEN Normal NONE SEEN [facility] Comment on above: Performed By: #### C BC #### [facility] [address] [place] [address] Dr. Caitlin Martinez Crystals LM Nom (Urine sed) NONE SEEN Normal NONE SEEN [facility] Comment on above: Performed By: #### C BC #### [facility] [address] [place] [address] Dr. Caitlin Martinez Epithelial cells LM Ql (Urine sed) MODERATE Abnormal NONE SEEN /RARE [facility] Comment on above: Performed By: #### C BC #### [facility] [address] [place] [address] Dr. Caitlin Martinez MUCOUS NONE SEEN Normal NONE SEEN [facility] Comment on above: Performed By: #### C BC #### [facility] [address] [place] [address] Dr. Caitlin Martinez RBC NONE SEEN Abnormal 0-2 [facility] Comment on above: Performed By: #### C BC #### [facility] [address] [place] [address] Dr. Caitlin Martinez WBC 2-5 Abnormal NONE SEEN [facility] Comment on above: Performed By: #### C BC #### [facility] [address] [place] [address] Dr. Caitlin Martinez US APPENDIXon 01-15-2022 US [...] DAVID BLACKMON Date: 2022-01-15 14:14 Normal [facility] US PREG GROWTHon 01-15-2022 US PREG [...] DAVID BLACKMON Date: 2022-01-15 10:59 Normal [facility] US PREG PLACENTAon US PREG PLACENTA [...] DAVID BLACKMON Date: 2022-01-15 10:57 Normal [facility] UA (CLEAN/CATCH) FAMILY SERVICE COUNSELOR/MICRO I F IND.on 12-29-2021 Bilirubin Ql (U) Negative Normal NEGATIVE [facility] Comment on above: Performed By: #### C BC #### [facility] [address] [place] [address] Dr. Caitlin Martinez Clarity (U) CLEAR Normal CLEAR [facility] Comment on above: Performed By: #### C BC #### [facility] [address] [place] [address] Dr. Caitlin Martinez Color (U) LT. YELLOW Normal YELLOW [facility] Comment on above: Performed By: #### C BC #### [facility] [address] [place] [address] Dr. Caitlin Martinez Glucose Ql (U) Negative Normal NEGATIVE [facility] Comment on above: Performed By: #### C BC #### [facility] [address] [place] [address] Dr. Ciatlin Martinez Hemoglobin Ql (U) Negative Normal NEGATIVE [facility] Comment on above: Performed By: #### C BC #### [facility] [address] [place] [address] Dr. Caitlin Martinez Ketones Ql (U) Negative Normal NEGATIVE [facility] Comment on above: Performed By: #### C BC #### [facility] [address] [place] [address] Dr. Caitlin Martinez LEUKOCYTES Negative Normal NEGATIVE [facility] Comment on above: Performed By: #### C BC #### [facility] [address] [place] [address] Dr. Caitlin Martinez Nitrite Ql (U) Negative Normal NEGATIVE [facility] Comment on above: Performed By: #### C BC #### [facility] [address] [place] [address] Dr. Caitlin Martinez pH (U) 6.5 [pH] Normal 5-9 [facility] Comment on above: Performed By: #### C BC #### [facility] [address] [place] [address] Dr. Caitlin Martinez SPEC GRAVITY 1.020 Normal 1.005-<=1.[address] [facility] Comment on above: Performed By: #### C BC #### [facility] [address] [place] [address] Dr. Caitlin Martinez UA PROTEIN Negative Normal NEGATIVE/ TRACE [facility] Comment on above: Performed By: #### C BC #### [facility] [address] [place] [address] Dr. Caitlin Martinez UR MICRO IND NOT INDICATED Normal [facility] Comment on above: Performed By: #### C BC #### [facility] [address] [place] [address] Dr. Caitlin Martinez Urobilinogen Qn (U) 1.0 {Barbara'U}/dL Normal 0.2 - 1. 0 [facility] Comment on above: Performed By: #### C BC #### [facility] [address] [place] [address] Dr. Caitlin Martinez US PREG CERVICAL LENGTHon [...] KIRK OATES Date: 2021-12-29 15:53 Normal [facility] UA (CLEAN/CATCH) FAMILY SERVICE COUNSELOR/MICRO I F IND.on 12-18-2021 Bilirubin Ql (U) Negative Normal NEGATIVE [facility] Comment on above: Performed By: #### C BC #### [facility] [address] [place] [address] Dr. Caitlin Martinez Clarity (U) CLEAR Normal CLEAR [facility] Comment on above: Performed By: #### C BC #### [facility] [address] [place] [address] Dr. Caitlin Martinez Color (U) YELLOW Normal YELLOW [facility] Comment on above: Performed By: #### C BC #### [facility] [address] [place] [address] Dr. Caitlin Martinez Glucose Ql (U) Negative Normal NEGATIVE [facility] Comment on above: Performed By: #### C BC #### [facility] [address] [place] [address] Dr. Caitlin Martinez Hemoglobin Ql (U) Negative Normal NEGATIVE [facility] Comment on above: Performed By: #### C BC #### [facility] [address] [place] [address] Dr. Caitlin Martinez Ketones Ql (U) TRACE Abnormal NEGATIVE [facility] Comment on above: Performed By: #### C BC #### [facility] [address] [place] [address] Dr. Caitlin Martinez LEUKOCYTES Negative Normal NEGATIVE [facility] Comment on above: Performed By: #### C BC #### [facility] [address] [place] [address] Dr. Caitlin Martinez Nitrite Ql (U) Negative Normal NEGATIVE [facility] Comment on above: Performed By: #### C BC #### [facility] [address] [place] [address] Dr. Caitlin Martinez pH (U) 6.0 [pH] Normal 5-9 [facility] Comment on above: Performed By: #### C BC #### [facility] [address] [place] [address] Dr. Caitlin Martinez SPEC GRAVITY 1.025 Normal 1.005-<=1.025 [facility] Comment on above: Performed By: #### C BC #### [facility] [address] [place] [address] Dr. Caitlin Martinez UA PROTEIN Negative Normal NEGATIVE/ TRACE [facility] Comment on above: Performed By: #### C BC #### [facility] [address] [place] [address] Dr. Caitlin Martinez UR MICRO IND NOT INDICATED Normal [facility] Comment on above: Performed By: #### C BC #### [facility] [address] [place] [address] Dr. Caitlin Martinez Urobilinogen Qn (U) 4 {Barbara'U}/dL Abnormal 0.2 - 1.0 [facility] Comment on above: Performed By: #### C BC #### [facility] [address] [place] [address] Dr. Caitlin Martinez RHOGAMon 11-28-2021 RHOGAM Status Information Issued Quantity 1 Product ID Rh Immune Globulin Lot Number [id number] Issue Date/Time [id number] Normal [facility] Comment on above: Performed By: #### I HORACIO #### [facility] [address] [place] [address] Dr. Caitlin Martinez TYPE AND SCREENon 11-27-2021 TYPE AND SCREEN Negative Normal [facility] Comment on above: Performed By: #### T NS #### [facility] [address] [place] [address] Dr. Caitlin Martinez CULTURE URINEon 11-23-2021 CULTURE URINE Culture Observations : No growth Normal [facility] Comment on above: Performed By: #### I HORACIO #### [facility] [address] [place] [address] Dr. Caitlin Martinez UA (CLEAN/CATCH) FAMILY SERVICE COUNSELOR/MICRO I F IND.on 11-23-2021 Bilirubin Ql (U) Negative Normal NEGATIVE [facility] Comment on above: Performed By: #### U RCX #### [facility] [address] [place] [address] Dr. Caitlin Martinez Clarity (U) CLEAR Normal CLEAR [facility] Comment on above: Performed By: #### U RCX #### [facility] [address] [place] [address] Dr. Caitlin Martinez Color (U) LT. YELLOW Normal YELLOW [facility] Comment on above: Performed By: #### U RCX #### [facility] [address] [place] [address] Dr. Caitlin Martinez Glucose Ql (U) Negative Normal NEGATIVE [facility] Comment on above: Performed By: #### U RCX #### [facility] [address] [place] [address] Dr. Caitlin Martinez Hemoglobin Ql (U) Negative Normal NEGATIVE [facility] Comment on above: Performed By: #### U RCX #### [facility] [address] [place] [address] Dr. Caitlin Martinez Ketones Ql (U) Negative Normal NEGATIVE [facility] Comment on above: Performed By: #### U RCX #### [facility] [address] [place] [address] Dr. Caitlin Martinez LEUKOCYTES SMALL Abnormal NEGATIVE [facility] Comment on above: Performed By: #### U RCX #### [facility] [address] [place] [address] Dr. Caitlin Martinez Nitrite Ql (U) Negative Normal NEGATIVE [facility] Comment on above: Performed By: #### U RCX #### [facility] [address] [place] [address] Dr. Caitlin Martinez pH (U) 6.5 [pH] Normal 5-9 [facility] Comment on above: Performed By: #### U RCX #### [facility] [address] [place] [address] Dr. Caitlin Martinez SPEC GRAVITY 1.010 Normal 1.005-<=1.[address] [facility] Comment on above: Performed By: #### U RCX #### [facility] [address] [place] [address] Dr. Caitlin Martinez UA PROTEIN Negative Normal NEGATIVE/ TRACE [facility] Comment on above: Performed By: #### U RCX #### [facility] [address] [place] [address] Dr. Caitlin Martinez UR MICRO IND INDICATED Normal [facility] Comment on above: Performed By: #### U RCX #### [facility] [address] [place] [address] Dr. Caitlin Martinez Urobilinogen Qn (U) 0.2 {Barbara'U}/dL Normal 0.2 - 1. 0 [facility] Comment on above: Performed By: #### U RCX #### [facility] [address] [place] [address] Dr. Caitlin Martinez URINE MICROSCOPIC ONLYon BACTERIA TRACE Abnormal NONE SEEN [facility] Comment on above: Performed By: #### U RCX #### [facility] [address] [place] [address] Dr. Caitlin Martinez Bacteria identified Cx Nom (U) INDICATED Normal [facility] Comment on above: Performed By: #### U RCX #### [facility] [address] [place] [address] Dr. Caitlin Martinez CAST SEEN Abnormal NONE SEEN [facility] Comment on above: Performed By: #### U RCX #### [facility] [address] [place] [address] Dr. Caitlin Martinez Crystals LM Nom (Urine sed) SEEN Abnormal NONE SEEN [facility] Comment on above: Performed By: #### U RCX #### [facility] [address] [place] [address] Dr. Caitlin Martinez Epithelial cells LM Ql (Urine sed) RARE Normal NONE SEEN /RARE [facility] Comment on above: Performed By: #### U RCX #### [facility] [address] [place] [address] Dr. Caitlin Martinez MUCOUS TRACE Abnormal NONE SEEN [facility] Comment on above: Performed By: #### U RCX #### [facility] [address] [place] [address] Dr. Caitlin Martinez RBC 0-2 Normal 0-2 [facility] Comment on above: Performed By: #### U RCX #### [facility] [address] [place] [address] Dr. Caitlin Martinez WBC 2-5 Abnormal NONE SEEN [facility] Comment on above: Performed By: #### U RCX #### [facility] [address] [place] [address] Dr. Caitlin Martinez GLUCOSE - 1HRon 11-06-2021 Glucose [Mass/Vol] 131 mg/dL Critically high 74-106 T [facility] Comment on above: Performed By: #### I HORACIO #### [facility] [address] [place] [address] Dr. Caitlin Martinez HEMOGRAM AND PLATELon 2021 Hematocrit (Bld) [Volume fraction] 34.2 % Critically low 36.0-48.0 [facility] Comment on above: Performed By: #### C BC #### [facility] [address] [place] [address] Dr. Caitlin Martinez Hemoglobin (Bld) [Mass/Vol] 11.3 g/dL Critically low 12.0-16.0 [facility] Comment on above: Performed By: #### C BC #### [facility] [address] [place] [address] Dr. Caitlin Martinez MCH (RBC) [Entitic mass] 31.7 pg Normal 26.7-34.0 [facility] Comment on above: Performed By: #### C BC #### [facility] [address] [place] [address] Dr. Caitlin Martinez MCHC (RBC) [Mass/Vol] 33.0 g/dL Normal 29.9-35.2 [facility] Comment on above: Performed By: #### C BC #### [facility] [address] [place] [address] Dr. Caitlin Martinez MCV (RBC) [Entitic vol] 96.1 fL Normal 81.0-99.0 [facility] Comment on above: Performed By: #### C BC #### [facility] [address] [place] [address] Dr. Caitlin Martinez PLT 372 103/ul Normal 150-450 [facility] Comment on above: Performed By: #### C BC #### [facility] [address] [place] [address] Dr. Caitlin Martinez RBC 3.56 106/ul Critically low 4.20-5.40 [facility] Comment on above: Performed By: #### C BC #### [facility] [address] [place] [address] Dr. Caitlin Martinez WBC 10.1 103/ul Normal 4.0-11.0 [facility] Comment on above: Performed By: #### C BC #### [facility] [address] [place] [address] Dr. Caitlin Martinez CHLAMYDIA/GONOCOCCUS JONATAN ( AB/URINE/PAPon 10-31-2021 Chlamydia trachomatis, JONATAN Negative Normal Negative [facility] Comment on above: Performed By: #### C BC #### [facility] [address] [place] [address] Dr. Caitlin Martinez Neisseria gonorrhoeae, JONATAN Negative Normal Negative [facility] Comment on above: Performed By: #### C BC #### [facility] [address] [place] [address] Dr. Caitlin Martinez VAGINITIS/VAGINOSIS DNA PROB Paramjit 10-29-2021 Selena species Negative Normal Negative [facility] Comment on above: Performed By: #### U RCX #### [facility] [address] [place] [address] Dr. Caitlin Martinez Gardnerella vaginalis Negative Normal Negative [facility] Comment on above: Performed By: #### U RCX #### [facility] [address] [place] [address] Dr. Caitlin Martinez Trichomonas vaginalis Negative Normal Negative [facility] Comment on above: Performed By: #### U RCX #### [facility] [address] [place] [address] Dr. Caitlin Martinez US PREG INCOMPLETE ANATOMYon [...] DAVID BLACKMON Date: 2021-10-26 12:05 Normal [facility] CBC W MANUAL DIFFon 10-25-19 22 ATYPICAL LYMPH # Normal [facility] Comment on above: Performed By: #### U RCX #### [facility] [address] [place] [address] Dr. Caitlin Maritnez ATYPICAL LYMPH % Normal [facility] Comment on above: Performed By: #### U RCX #### [facility] [address] [place] [address] Dr. Caitlin Martinez BAND # 0.1 103/ul Normal 0.0-0.3 [facility] Comment on above: Performed By: #### U RCX #### [facility] [address] [place] [address] Dr. Caitlin Martinez BAND % 1 % Normal 0-5 [facility] Comment on above: Performed By: #### U RCX #### [facility] [address] [address] [address] Caitlin Martinez BASOM # 0.00 103/ul Normal 0.00-0.10 [facility] Comment on above: Performed By: #### U RCX #### [facility] [address] [address] [address] Caitlin Martinez BASOM % 0.0 % Critically low 0.2-2.0 [facility] Comment on above: Performed By: #### U RCX #### [facility] [address] [address] [address] Caitlin Martinez BLAST # Normal [facility] Comment on above: Performed By: #### U RCX #### [facility] [address] [place] [address] Dr. Caitlin Martinez BLAST % Normal [facility] Comment on above: Performed By: #### U RCX #### [facility] [address] [place] [address] Dr. Caitlin Martinez CORRECTED WBC Normal 4.0-11.0 [facility] Comment on above: Performed By: #### U RCX #### [facility] [address] [place] [address] Dr. Caitlin Martinez EOS # 0.12 103/ul Normal 0.00-0.70 [facility] Comment on above: Performed By: #### U RCX #### [facility] [address] [place] [address] Dr. Caitlin Martinez EOS% 1.0 % Normal 0.9-7.0 [facility] Comment on above: Performed By: #### U RCX #### [facility] [address] [address] [address] Caitlin Martinez HCT 31.5 % Critically low 36.0-48.0 [facility] Comment on above: Performed By: #### U RCX #### [facility] [address] [place] [address] Dr. Caitlin Martinez HGB 10.5 g/dl Critically low 12.0-16.0 [facility] Comment on above: Performed By: #### U RCX #### [facility] [address] [address] [address] Caitlin Martinez LYMPHM # 0.37 103/ul Critically low 1.20-3.80 [facility] Comment on above: Performed By: #### U RCX #### [facility] [address] [address] [address] Caitlin Martinez LYMPHM% 3.0 % Critically low 20.5-60.0 [facility] Comment on above: Performed By: #### U RCX #### [facility] [address] [address] [address] Caitlin Martinez MCH 31.8 pg Normal 26.7-34.0 [facility] Comment on above: Performed By: #### U RCX #### [facility] [address] [place] [address] Dr. Caitlin Martinez MCHC 33.3 g/dl Normal 29.9-35.2 [facility] Comment on above: Performed By: #### U RCX #### [facility] [address] [place] [address] Dr. Caitlin Martinez MCV 95.5 fL Normal 81.0-99.0 [facility] Comment on above: Performed By: #### U RCX #### [facility] [address] [place] [address] Dr. Caitlin Martniez METAMYELOCYTE # Normal [facility] Comment on above: Performed By: #### U RCX #### [facility] [address] [place] [address] Dr. Caitlin Martinez METAMYELOCYTE % Normal [facility] Comment on above: Performed By: #### U RCX #### [facility] [address] [place] [address] Dr. Caitlin Martinez MONOM# 0.73 103/ul Normal 0.30-0.80 [facility] Comment on above: Performed By: #### U RCX #### [facility] [address] [place] [address] Dr. Caitlin Martinez MONOM% 6.0 % Normal 1.7-12.0 [facility] Comment on above: Performed By: #### U RCX #### [facility] [address] [place] [address] Dr. Caitlin Martinez MPV 9.5 fL Normal 9.5-13.5 [facility] Comment on above: Performed By: #### U RCX #### [facility] [address] [place] [address] Dr. Caitlin Martinez MYELOCYTE # Normal [facility] Comment on above: Performed By: #### U RCX #### [facility] [address] [place] [address] Dr. Caitlin Martinez MYELOCYTE % Normal [facility] Comment on above: Performed By: #### U RCX #### [facility] [address] [place] [address] Dr. Caitlin Martinez NRBC Normal [facility] Comment on above: Performed By: #### U RCX #### [facility] [address] [place] [address] Dr. Caitlin Martinez PLT 275 103/ul Normal 150-450 [facility] Comment on above: Performed By: #### U RCX #### [facility] [address] [place] [address] Dr. Caitlin Martinez RBC 3.30 106/ul Critically low 4.20-5.40 [facility] Comment on above: Performed By: #### U RCX #### [facility] [address] [place] [address] Dr. Caitlin Martinez RDW 13.6 % Normal 11.0-15.0 [facility] Comment on above: Performed By: #### U RCX #### [facility] [address] [place] [address] Dr. Caitlin Martinez SEG # 10.86 103/ul Critically high 1.40-6.50 [facility] Comment on above: Performed By: #### U RCX #### [facility] [address] [place] [address] Dr. Caitlin Martinez SEG % 89.0 % Critically high 43.0-75.0 [facility] Comment on above: Performed By: #### U RCX #### [facility] [address] [address] [address] Caitlin Martinez WBC 12.2 103/ul Critically high 4.0-11.0 [facility] Comment on above: Performed By: #### U RCX #### [facility] [address] [address] [address] Caitlin Martinez ER URINE PROFILEon 2 Bilirubin Ql (U) Negative Normal NEGATIVE [facility] Comment on above: Performed By: #### C VDTBH #### [facility] [address] [place] [address] Dr. Caitlin Martinez Clarity (U) SL CLOUDY Abnormal CLEAR [facility] Comment on above: Performed By: #### C VDTBH #### [facility] [address] [place] [address] Dr. Caitlin Martinez Color (U) YELLOW Normal YELLOW [facility] Comment on above: Performed By: #### C VDTBH #### [facility] [address] [place] [address] Dr. Caitlin Martinez ERUNadine A micrscopic examination will be performed if indicated. Normal [facility] Comment on above: Performed By: #### C VDTBH #### [facility] [address] [place] [address] Dr. Caitlin Martinez Glucose Ql (U) Negative Normal NEGATIVE [facility] Comment on above: Performed By: #### C VDTBH #### [facility] [address] [place] [address] Dr. Caitlin Martinez Hemoglobin Ql (U) Negative Normal NEGATIVE [facility] Comment on above: Performed By: #### C VDTBH #### [facility] [address] [place] [address] Dr. Caitlin Martinez Ketones Ql (U) >=80 Abnormal NEGATIVE [facility] Comment on above: Performed By: #### C VDTBH #### [facility] [address] [place] [address] Dr. Caitlin Martinez LEUKOCYTES Negative Normal NEGATIVE [facility] Comment on above: Performed By: #### C VDTBH #### [facility] [address] [place] [address] Dr. Caitlin Martinez Nitrite Ql (U) Negative Normal NEGATIVE [facility] Comment on above: Performed By: #### C VDTBH #### [facility] [address] [place] [address] Dr. Caitlin Martinez pH (U) 6.0 [pH] Normal 5-9 [facility] Comment on above: Performed By: #### C VDTBH #### [facility] [address] [place] [address] Dr. Caitlin Martinez SPEC GRAVITY 1.020 Normal 1.005-<=1.025 [facility] Comment on above: Performed By: #### C VDTBH #### [facility] [address] [place] [address] Dr. Caitlin Martinez UA PROTEIN Negative Normal NEGATIVE/ TRACE [facility] Comment on above: Performed By: #### C VDTBH #### [facility] [address] [place] [address] Dr. Caitlin Martinez UR MICRO IND NOT INDICATED Normal [facility] Comment on above: Performed By: #### C VDTBH #### [facility] [address] [place] [address] Dr. Caitlin Martinez Urobilinogen Qn (U) 1.0 {Barbara'U}/dL Normal 0.2 - 1. 0 [facility] Comment on above: Performed By: #### C VDTBH #### [facility] [address] [place] [address] Dr. Caitlin Martinez INFLUENZA A AND B AGon 10-24 INFLUBNEG SEE BELOW Normal [facility] Comment on above: Result Comment: Nega tive for Flu B protein antigen. Infection due to Flu B cannot be ruled out. Flu B antigen in the sample may be below the detection limit of the test. Performed By: #### C VDTBH #### [facility] [address] [place] [address] Dr. Caitlin Martinez INFLUENZA A AG Positive Abnormal NEGATIVE SEE COMMENT [facility] Comment on above: Performed By: #### C VDTBH #### [facility] [address] [place] [address] Dr. Caitlin Martinez INFLUENZA B AG Negative Normal NEGATIVE SEE COMMENT [facility] Comment on above: Performed By: #### C VDTBH #### [facility] [address] [place] [address] Dr. Caitlin Martinez INFLUPOSH SEE BELOW Normal [facility] Comment on above: Result Comment: NOTE : Live attenuated influenzae vaccine viruses can cause a positive result for a rapid influenza diagnostic test if administered up to 7 days prior to rapid testing. Performed By: #### C VDTBH #### [facility] [address] [place] [address] Dr. Caitlin Martinez INTERNAL CONTROLS Within Normal Limits Normal Wi thin Normal Limits [facility] Comment on above: Performed By: #### C VDTBH #### [facility] [address] [place] [address] Dr. Caitlin Martinez PROF CHEM 8 (BAS METB)on Anion gap [Moles/Vol] 14.4 mmol/L Normal [facility] Comment on above: Performed By: #### D RHONA, ABINadine #### [facility] [address] [place] [address] Dr. Caitlin Martinez Calcium [Mass/Vol] 8.4 mg/dL Critically low 8.5-10.1 [facility] Comment on above: Performed By: #### D RHONA, ABID #### [facility] [address] [place] [address] Dr. Caitlin Martinez Chloride [Moles/Vol] 101 mmol/L Normal 98-107 [facility] Comment on above: Performed By: #### D RHONA, ABID #### [facility] [address] [place] [address] Dr. Caitlin Martinez CO2 [Moles/Vol] 19.7 mmol/L Critically low 21.0-32.0 [facility] Comment on above: Performed By: #### D RHONA ABID #### [facility] [address] [address] [address] Caitlin Martinez Creatinine [Mass/Vol] 0.55 mg/dL Normal 0.55-1.02 [facility] Comment on above: Performed By: #### D IRCMB, ABID #### [facility] [address] [address] [address] Caitlin Martinez EGFR-AF MOLDOVAN >60 Normal >=60 [facility] Comment on above: Performed By: #### D IRCMB, ABID #### [facility] [address] [address] [address] Caitlin Martinez EGFR-NON AF MOLDOVAN >60 Normal >=60 [facility] Comment on above: Performed By: #### D IRCMB, ABID #### [facility] [address] [address] [address] Caitlin Martinez Glucose [Mass/Vol] 91 mg/dL Normal 74-106 [facility] Comment on above: Performed By: #### D IRCMB, ABID #### [facility] [address] [address] [address] Caitlin Martinez Potassium [Moles/Vol] 3.1 mmol/L Critically low 3.5-5.1 [facility] Comment on above: Performed By: #### D IRCMB, ABID #### [facility] [address] [address] [address] Caitlin Martinez Sodium [Moles/Vol] 132 mmol/L Critically low 136-145 [facility] Comment on above: Performed By: #### D IRCMB, ABID #### [facility] [address] [address] [address] Caitlin Martinez Urea nitrogen [Mass/Vol] 7.0 mg/dL Normal 7.0-18.0 [facility] Comment on above: Performed By: #### D IRCMB, ABID #### [facility] [address] [address] [address] Caitlin Martinez Urea nitrogen/Creatinine [Mass ratio] 12.7 mg/mg Normal [facility] Comment on above: Performed By: #### D IRCMB, ABID #### [facility] [address] [address] [address] Caitlin Martinez US PREG ANATOMY SINGLEon [...] by: DAVID BLACKMON Date: 2021-09-28 09:17 Normal [facility] CHEMISTRYOrdered By: SYSTEM SYSTEM on 06-21-2021 [place] [address] m[IU]/mL High 1 - 3 mIU/mL [facility] [...] gas pattern is nonobstructive. There is a xnsjfhkt-ff-prsfs amount of stool burden. IMPRESSION: No malalignment. No acute compression deformity. Lippvgfn-lz-ajrkc amount of stool burden. [employer] Workstation ID: [id number] Dictated by: LUBA GARCÍA on [facility] Mar 05, 2020 4:09:51 PM EDT Transcribed by: KELVIN GUADALUPE on [facility] Mar 05, 2020 4:17:18 PM EDT Finalized by: LUBA GARCÍA on [facility] Mar 05, 2020 7:52:[address] [facility] Comment on above: Order Comment: Injur y/Trauma or Illness?:Illness/Other How long have you had these symptoms (acute/chronic)?:Chronic Reason for exam?:low back pain History of cancer?:n Surgeries, chemotherapy, or radiation?:n Type of Exam?:Initial Additional signs and symptoms?:fibromyalgia XR Lumbar Spine 2-3 Views (S tandard)on 03-05-2020 No malalignment. No acute compression deformity. Jybshwxj-fz-stane amount of stool burden. [employer] Workstation ID: [id number] [facility] EXAMINATION: XR LUMBAR SPINE 2-3 [...] gas pattern is nonobstructive. There is a kcoxvpht-hl-lkslk amount of stool burden. [facility] Interface, Rad In [place] Speechq - [...] gas pattern is nonobstructive. There is a qvwzxhay-jk-icoou amount of stool burden. IMPRESSION: No malalignment. No acute compression deformity. Jtpolpyi-wi-pjfir amount of stool burden. [employer] Workstation ID: [id number] [facility] CNOVon 10-28-2018 CNOV Office Visit (OLVIN ) SANDY GODINEZ ([id number]) 1995 F Date Time Provider Department 10/28/18 [...] Farrah Garcia MD [address] [place] [address] Consult requested for an opinion regarding the [...] TIME: 12:44 PM Referring Provider: FARRAH GARCIA [[id number]] Allergies As of Date: 10/28/2018 (No Known [...] by WARREN RODRIGUEZ MD on 10/29/18 [facility] PROGRESS[facility] 10-28-2018 Protein mass conc HNO ID: [id number] Author: Warren Rodriguez Service: ? Author Type: Physician Type: Progress Notes Filed: 10/29/2018 3:03 PM Note Text: VASCULAR SURGERY INITIAL CONSULT SERVICE DATE: 10/28/2018 SERVICE TIME: 12:44 PM PRIMARY CARE PHYSICIAN: Farrah Garcia MD REFERRING PROVIDER: Farrah Garcia MD [address] [facility] [address] Consult requested for an opinion regarding the [...] October 28, 2018 TIME: 12:44 PM Normal [facility] Vital Signs Date Time Vital Sign Value Performing Clinician Chiquis zaragoza 07-19-2023 09:31-0500 Body mass index (BMI) [Ratio] 26.79 kg/m2 [facility] Nurse [facility] 07-19-2023 09:31-0500 Body weight 73.03 kg [facility] Nurse [facility] 07-19-2023 09:31-0500 Diastolic blood pressure 72 mm[Hg] [facility] Nurse [facility] 07-19-2023 09:31-0500 Systolic blood pressure 118 mm[Hg] [facility] Nurse [facility] Encounters Encounter Date Encounter Type Care [...] End: 11-08-2023 ambulatory JOSE MIGUEL R JUSTEN [facility] Start: 10-15-2023 End: 10-15-2023 ambulatory [...] Not Available Start: 07-08-2023 ambulatory Royer Layne acility:[facility] Start: 07-02-2023 End: 07-02-2023 ambulatory JOSE [...] 09-19-2021 Recurring Jose Miguel CAMPUZANO [facility] Start: 03-05-2020 End: 03-06-2020 [facility] Start: 03-05-2020 End: 03-05-2020 Subsequent hospital visit by physician Vibha Johnson Work Phone: [facility] Comment on above: Chronic low back [...] Routine [facility] [address] [place] [address] Jose Miguel Campuzano, DO [address] [place] [address] [facility] Start: 07-19-2023 End: 07-19-2024 ABO/Rh ABO/Rh Lab Routine Missed menses Expected: 07/19/2023 (Approximate), Expires: 07/19/2024 [facility] Comment on above: Expected: 07/19/2023 (Approximate), Expires: 07/19/2024 Start: 07-19-2023 End: 07-19-2024 Blood type and Indirect antibody screen panel - Blood Type and screen Lab Routine Missed menses Expected: 07/19/2023 (Approximate), Expires: 07/19/2024 [facility] Work Phone: Comment on above: Expected: 07/19/2023 (Approximate), Expires: 07/19/2024 Start: 07-19-2023 End: 07-19-2024 US Pelvis transvaginal US OB transvaginal Imaging Routine Missed menses Expected: 07/19/2023 (Approximate), Expires: 07/19/2024 [facility] Comment on above: Expected: 07/19/2023 (Approximate), Expires: 07/19/2024 Start: 02-16-2020 Influenza vaccinatio n given Sequential Influenza Vaccine (#1) [facility] Start: 2014 Hepatitis C antibody , confirmatory test Hepatitis C Screening [facility] Start: 08-31-2011 HIV screening HIV Screening [facility] Start: 08-31-2007 Vaccination for [place] papillomavirus HPV Vaccines (1 - 2-dose series) [facility] Start: 08-31-1999 History and physical examination, annual for health maintenance Wellness Visit [facility] Start: 1996 Screening for Chlamy tristan trachomatis Chlamydia Screening [facility] Start: 1996 Screening for malign ant neoplasm of cervix Pap Smear [facility] Start: 1996 Tetanus vaccination Tetanus: Every 1 0yrs [facility] Bacteria identified in Urine by Culture Urine culture Microbiology Routine Missed menses Ordered: 07/19/2023 [facility] Comment on above: Ordered: 07/19/2023 CBC W Auto Different ial panel - Blood CBC and differential Lab Routine Missed menses Ordered: 07/19/2023 [facility] Comment on above: Ordered: 07/19/2023 Hemoglobin A1c measurement Hemoglobin A1c Lab Routine Missed menses Ordered: 07/19/2023 [facility] Comment on above: Ordered: 07/19/2023 Hepatitis B virus knight rface Ag [Presence] in Serum or Plasma by Immunoassay Hepatitis B surface antigen Lab Routine Missed menses Ordered: 07/19/2023 [facility] Comment on above: Ordered: 07/19/2023 Hepatitis C virus Ab [Presence] in Serum or Plasma by Immunoassay Hepatitis C antibody Lab Routine Missed menses Ordered: 07/19/2023 [facility] Comment on above: Ordered: 07/19/2023 HIV-1/HIV-2 antigen/antibody combination immunoassay HIV-1 and HIV-2 antibodies Lab Routine Missed menses Ordered: 07/19/2023 [facility] Comment on above: Ordered: 07/19/2023 Reagin Ab [Presence] in Serum by RPR RPR Lab Routine Missed menses Ordered: 07/19/2023 [facility] Comment on above: Ordered: 07/19/2023 Rubella antibody, IgG Rubella an tibody, IgG Lab Routine Missed menses Ordered: 07/19/2023 [facility] Comment on above: Ordered: 07/19/2023 Payers Date Payer Category Payer Self-pay 2022 Medicaid [employer] [place] [id number] 2022-Present [address] [place] [address] [id number] 1995 Unknown [id number] 2.16.840.1.467279.3.579.2.903 1996 Unknown [id number] 2.16.840.1.752089.3.579.2.593 1996 Unknown [id number] 2.16.840.1.603010.3.579.2.593 1996 Unknown [id number] 2.16.840.1.827028.3.579.2.593 1996 Unknown [id number] 2.16.840.1.629802.3.579.2.593 1996 Unknown [id number] 2.16.840.1.707266.3.579.2.593 1996 Unknown [id number] 2.16.840.1.604623.3.579.2.59 1996 Unknown [id number] 2.16.840.1.651392.3.579.2.593 1996 Unknown [id number] 2.16.840.1.250569.3.579.2.593 1996 Unknown [id number] 2.16.840.1.571554.3.579.2.593 1996 Unknown [id number] 2.16.840.1.811464.3.579.2.593 1996 Unknown [id number] 2.16.840.1.779448.3.579.2.593 1996 Unknown [id number] 2.16.840.1.839432.3.579.2.593 1996 Unknown [id number] 2.16.840.1.496419.3.579.2.593 1996 Unknown [id number] 2.16.840.1.792004.3.579.2.593 1996 Unknown [id number] 2.16.840.1.788377.3.579.2.593 1996 Unknown [id number] 2.16.840.1.515551.3.579.2.593 1996 Unknown [id number] 2.16.840.1.038900.3.579.2.593 1996 Unknown [id number] 2.16.840.1.006448.3.579.2.593 1996 Unknown [id number] 2.16.840.1.251729.3.579.2.593 1996 Unknown [id number] 2.16.840.1.917261.3.579.2.593 1996 Unknown [id number] 2.16.840.1.808641.3.579.2.593 1996 Unknown [id number] 2.16.840.1.861034.3.579.2.1286 1996 Unknown [id number] 2.16.840.1.918452.3.579.2.6 1996 Unknown [id number] 2.16.840.1.071527.3.579.2.1258 1996 Unknown [id number] 2.16.840.1.963986.3.579.2.1258 1996 Unknown [id number] 2.16.840.1.751795.3.579.2.1258 1996 Unknown [id number] 2.16.840.1.464887.3.579.2.1258 1996 Unknown [id number] 2.16.840.1.062516.3.579.2.1258 1996 Unknown [id number] 2.16.840.1.793004.3.579.2.1258 1996 Unknown [id number] 2.16.840.1.205795.3.579.2.1258 1996 Unknown [id number] 2.16.840.1.781905.3.579.2.1258 1996 Unknown [id number] 2.16.840.1.998540.3.579.2.1258 1996 Unknown [id number] 2.16.840.1.128404.3.579.2.1258 1996 Unknown [id number] 2.16.840.1.195765.3.579.2.1258 1996 Unknown [id number] 2.16.840.1.273672.3.579.2.1258 1996 Unknown [id number] 2.16.840.1.252431.3.579.2.1258 1996 Unknown [id number] 2.16.840.1.430014.3.579.2.1258 1959 Unknown [id number] 1959 Unknown [id number] Unknown COMMERCIAL COMME RCIAL MISCELLANEOUS [id number] Effective for all dates [id number] 1.2.840.063515.1.13.385.2.7.3. 520306.315 Unknown [id number] Unknown [id number] 2.16.840.1.107798.3.579.2.531 Social History Date Type Detail Facility Tobacco smoking stat us NHIS Unknown if ever smoked [facility] Sex Assigned At Not on file [facility] Start: 12-07-2022 Sex Assigned At Female [facility] Start: 12-07-2022 Tobacco smoking status NHIS Never smoked tobacco [facility] Start: 07-19-2023 Alcohol intake Current drinker of alcohol (finding) [facility] Start: 12-07-2022 History of Social function [facility] Start: 12-07-2022 Alcohol Comment 1-2 drinks less than monthly in the past year [facility] Start: 05-31-2023 [facility] Start: 1995 Sex Assigned At Female [facility] Start: 11-29-2022 Gender identity Identifies as female gender (finding) [facility] Start: 11-29-2022 Sexual orientation Heterosexual [...] sent for nausea to pharmacy. Pt desires [facility] [address] and understands to have it done at 10 weeks along w/her labs. Follow Up: Patient is to have labs drawn at directed and return to office for initial OB appointment with provider. Patient may call office as needed with any concerns or questions. Nurse Visit Completed by: Cori Daniel MA documented in this encounter [facility] Clinical Note 01-16-2022 Note Date & [...] by: Cecelia FOOTE Date: 2022-01-16 21:33 [facility] Note 01-16-2022 Note Date & [...] by: Cecelia FOOTE Date: 2022-01-16 21:33 [facility] Note 01-15-2022 Note Date & [...] by: IGOR DIAZ Date: 2022-01-15 10:10 [facility] Evaluation + Plan note Note Date & Type Note Facility Evaluation + Plan note No data available for this section [facility] Evaluation note Note Date & Type Note Facility Evaluation note Diagnosis Missed menses Nausea Nausea alone documented in this encounter [facility] Hospital Discharge instructions Note Date & Type Note Facility Hospital Discharge instructions No data available for this section [facility] Summary Purpose Family History No Family History Records FoundNo Family History Records FoundNo Family History Records FoundNo Family History Records FoundNo Family History Records FoundNo Family History Records FoundNo Family History Records Found Advance Directives No Advanced Directives Records FoundDocuments on File Type Date Recorded 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 Advance Directives and Rita torres Will 03/05/2020 2:18 PM Assessments Diagnosis Chronic low back pain, unspecified back pain laterality, unspecified whether sciatica present Additional Source Comments INFORMATION SOURCE (unrecogn ized section and content) DATE CREATED AUTHOR 11/08/2018 [facility] DATE CREATED AUTHOR AUTHOR'S ORGANIZ ATION 03/21/2020 [facility] DATE CREATED AUTHOR AUTHOR'S ORGANIZ ATION 08/04/2022 [facility] DATE CREATED AUTHOR AUTHOR'S ORGANIZ ATION 09/06/2022 [facility] DATE CREATED AUTHOR AUTHOR'S ORGANIZ ATION 09/17/2023 [facility] DATE CREATED AUTHOR AUTHOR'S ORGANIZ ATION 11/09/2023 [facility] DATE CREATED AUTHOR AUTHOR'S ORGANIZ ATION 03/03/2024 [facility] EPIC Reason for Visit (unrecogniz ed [...] BE BASED ON THE PRIMARY CLINICAL RECORDS. [employer] provides no warranty or guarantee of the accuracy or completeness of information in this document.
[2024-03-10 07:09] LABS: HCG Qualitative NEGATIVE (NEGATIVE); Internal Control Within Normal Limits
[2024-03-10] MEDS: LACTATED RINGER'S SOLUTION 1,000 ML 50 ML IV ×2 (07:28→09:55)
[2024-03-10] MEDS: INDOCYANINE GREEN 25 MG VIAL 5 MG INJ (07:29)
[2024-03-10] MEDS: D5W IV (08:42)
[2024-03-10] MEDS: CLINDAMYCIN PHOS IV (08:42)
--- NOTE | 2024-03-10 08:51 | P.ON_ITS ---
Date of procedure: 03/10/24 Pre-op diagnosis: symptomatic cholelithiasis Post-op diagnosis: same as pre-op Procedure: Procedure: Robotic assisted laparoscopic cholecystectomy with RICCO block The patient was brought to the operating room and placed supine on the operating room table. Cardiopulmonary monitoring was initiated. General anesthesia was induced without any complication. A time-out was performed. Pre-operative antibiotics were given. EPC cuffs were on the lower extremities. The abdomen was prepped and draped in the usual sterile fashion. The abdomen was entered approximately 12-14 cm distal to the xyophoid process and to the left of the midline. To do this a skin incision was made. A 5mm 0 degree laparoscope was then introduced using an optical access trocar. Pneumoperitoneum was then established through this trocar. Once pneumoperitoneum was created 2 additional 8 mm Da Tracy ports were placed under direct visualization in the mid left and left lateral abdomen along the same line of the umbilicus. A 4th 8mm RUQ port was placed then as well under direct visualization. The 5mm optiview port was then upsized to a 12mm robotic port under direct visualization. Prior to proceeding with the operation, an intraoperative TAP block was performed. ?Under visualization with the laparoscope, a needle was inserted percutaneously and, confirming that I was in the right plane, 30 mL of a mixture of Ropivacaine and Decadron were injected on both sides for a total of 60 ml. ?Good separation of the muscle planes was seen bilaterally indicating good placement of the anesthetic solution. The da Tracy machine was then docked and a camera placed without complication. A monopolar hook was then placed in the right arm and a fenestrated bipolar grasper was placed in the left arm.? Filmy adhesions between the gallbladder and the omentum were lysed carefully with electrocautery.? The fundus of the gallbladder was grasped and directed towards the patient's right shoulder.? The infundibulum of the gallbladder was grasped with a bipolar grasper.? The gallbladder was positioned so that the cystic duct was at a right angle to the common bile duct in order to expose Calot's triangle. The peritoneum between the gallbladder and the liver was taken down by electrocautery to further mobilize the triangle.? The fibrous tissue was hooked with meticulous electrocautery.? Hook electrocautery was used to identify the cystic duct. The cystic duct was skeletonized with electrocautery.? Dissection was continued to locate the cystic artery.? The cystic artery was skeletonized with electrocautery. Critical view was obtained in the anterior and posterior window.? All fat and fibrous tissue was dissected from the cystohepatic triangle with careful hook electrocautery. The cystic plate of the liver was skeletonized with hook electrocautery.? Both the cystic duct and cystic artery were the only structures visualized entering into the gallbladder. Firefly was used to confirm identification of the cystic duct.? The critical view of safety was confirmed. The cystic duct was ligated with double Hemoclips, and then divided with Endoshears. The cystic artery was ligated with a Hemoclip and divided with Endoshears. The gallbladder was dissected from the liver bed with electrocautery. There was some mild clear fluid that was noted coming from the gallbladder. This was collected/soaked up via a sponge which was removed from the abdomen after use.? The gallbladder was then placed into the Endopouch and delivered from the body at the umbilicus incision.? The bed was then inspected.? Hemostasis was achieved with electro cautery. The cystic duct and artery stumps were identified. All clips remained on both the cystic artery and the cystic duct stump.? No sign of bile leak or bleeding from the duct or artery stump. The da Tracy was undocked from the patient.?The camera and the left umbilical port were removed from the abdomen. The umbilical fascia was closed with an 0 Vicryl suture with a needle nose suture passer and a Jose-Celso needle under direct visualization.? Working ports were removed.? All incisions were cleansed with Betadine for the spillage of clear bile from the gallbladder and closed with simple subcuticular 4-0 Monocryl sutures.? Incisions were cleaned and dressed with Dermabond. All sponge, needle and instrument counts were correct prior to closure and the patient tolerated the procedure well without any apparent complication. The patient was extubated and then taken to recovery in stable condition Anesthesia: NIRMALA Surgeon: Feliciano Rollins Estimated blood loss (mL): 5 Pathology: other (gallbladder and contents ) Condition: stable Disposition: PACU
[2024-03-10] MEDS: 0.9 % SODIUM CHLORIDE 10 ML VIAL 20 ML IV (09:30)
[2024-03-10] MEDS: BUPIVACAINE LIPOSOME/PF 266 MG/13.3 ML VIAL INJ (09:30)
[2024-03-10] MEDS: BUPIVACAINE HCL 0.25% PF 25 MG/10 ML VIAL 20 ML INJ (09:30)
[2024-03-10] MEDS: HYDROMORPHONE HCL 0.5 MG/0.5 ML SYRINGE IV ×2 (10:58→11:13)
[2024-03-10] MEDS: OXYCODONE HCL/ACETAMINOPHEN 5MG/325MG 1 TAB PO (11:10)
[2024-03-10] MEDS: ONDANSETRON PF 4 MG/2 ML VIAL IV (12:16)
== END 2024-03-10 13:00 | disposition home or self-care (01) ==
PROVIDERS: PCP Nurse Practitioner Family; Visit Provider Surgery
PROC: (CPT 790; principal; 2024-03-10 08:20)
DX: K80.12 Calculus of gallbladder with acute and chronic cholecystitis without obstruction (principal); M79.7 Fibromyalgia
CPT/HCPCS: 47562; 36415; 84703; 88304; J0131; J0665; J1100; J1170; J1885; J2250; J2405; J2704; J3010

== ENCOUNTER 2024-08-12 08:44 | Outpatient (OUT) | payer OTHER, SELFPAY ==
--- OUTSIDE RECORDS SUMMARY | 2024-08-12 09:03 | XMS_ITS | CCD ---
Author Organization [facility] Care Team Providers Care Style Advisor Name Role Phone Rebecca Lange Primary Care Provider VIBHA JOHNSON Attending Unavailable VIBHA JOHNSON Referring Unavailable REBECCA LANGE Primary Care Unavailable Kelli Oliver Primary Care Physician [phone] MISC, DR LORENZANA Primary Care Unavailable MANOJ [...] Attending Unavailable REQUEST, NONE LISTED Primary Care UnavailPilar Faustin Consulting Unavailable JUSTEN, DR GILLESPIE Consulting [...] ILIR Admitting Unavailable ILIR JUAREZ Attending Unavailable REBECCA LANGE Primary Care Unavailable LAVELEL, DUARTE Consulting Unavailable LAVELLE, DUARTE Primary Care [...] DR LORENZANA Primary Care Unavailable JUSTEN, DR EDWARD Consulting Unavailable Unavailable Primary Care Provider Unavailabl e JUSTEN, EDWARD R Referring Unavailable MITUL RDZ Attending Unavailable JUSTEN, EDWARD R Referring Unavailable DO Janie Theodore Attending Provider Raudel Osborne MD Primary Care Provider MD Igor Becerra Attending Provider Edward Campuzano DO Unavailable Janie Theodore Admitting Unavailable Janie Theodore Attending Unavailable Igor Becerra Admitting Unavailable Igor Becerra Attending Unavailable Royer Simmons Admitting Unavailab Royer Watts Attending [facility]ailab [facility] Guill[facility] Primary Care Unavailable Raudel Osborne Primary Care Physician [phone] LEYDI JEFFERS Attending Unavailable JUSTEN, EDWARD Attending Unavailable JUSTEN, EDWARD Attending Unavailable ROCIO, BETSY Attending Unavailable JUSTEN, EDWARD Attending Unavailable JUSTEN, EDWARD Attending Unavailable JUSTEN, EDWARD Attending Unavailable JUSTEN, EDWARD Attending Unavailable JUSTEN, EDWARD Attending Unavailable ROCIO, BETSY Attending Unavailable JUSTEN, EDWARD Attending Unavailable JUSTEN, EDWARD Attending Unavailable JUSTEN, EDWARD Attending Unavailable JANIE THEODORE Attending Unavailable ROCIO, BETSY Attending Unavailable JUSTEN, EDWARD Attending Unavailable ROCIO, BETSY Attending Unavailable Unavailable Primary Care Provider Unavailabl e Allergies Allergy Classification Reported Allergen(s) Allergy Type Date of Onset Reaction(s) Facility (1 source) Desonide Drug Allergy 9 [facility] Repository (19 sources) Wound Dressing Adhesive Drug Intolerance 2 Itching [facility] Work Phone: (6 sources) ADHESIVE TAPE-SILICONES; 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: [ADHESIVE TAPE-SILICONES] Propensity to adverse reactions to drug (disorder) 4 Itching [facility] Repository Medications Current Medications Medication Drug Class(es) Dates Sig (Normalized) Sig (Original) clindamycin 300 mg oral capsule (2 sources) Lincosamide Antibacterial Start: 04-21-2024 End: 05-01-2024 clindamycin (Cleocin) 300 MG capsule Indications: Recurrent UTI Take 1 capsule (300 mg) by mouth in the morning and 1 capsule (300 mg) at noon and 1 capsule (300 mg) in the evening and 1 capsule (300 mg) before bedtime. Do all this for 10 days. 40 capsule 04/21/2024 05/01/2024 Active ferrous sulfate 325 mg oral tablet (7 sources) Start: 09-27-2022 take 1 tablet by mouth in the morning ferrous sulfate 325 (65 Fe) MG tablet Take 1 tablet by mouth in the morning and 1 tablet before bedtime. 0 09/27/2022 Active nitrofurantoin, macrocrystals 25 mg / nitrofurantoin, monohydrate 75 mg oral capsule (2 sources) Nitrofuran Antibacterial Start: 02-18-2024 End: 03-02-2024 take 1 capsule by mouth in the morning nitrofurantoin, macrocrystal-monohydr ate, (Macrobid) 100 MG capsule Indications: UTI symptoms Take 1 capsule (100 mg) by mouth in the morning and 1 capsule (100 mg) before bedtime. Do all this for 7 days. 14 capsule 02/18/2024 03/02/2024 Discontinued (Therapy completed) omeprazole 20 mg delayed release oral capsule (13 sources) Proton Pump Inhibitor Start: 12-05-2023 End: 02-23-2025 take 1 capsule by mouth before mealtime omeprazole (PriLOSEC) [address] capsule Indications: Gastroesophageal Reflux Disease , Heartburn Take 1 capsule (20 mg) by mouth in the morning. Take before meals. Do not crush or chew.. 30 capsule 11 02/24/2024 02/23/2025 Active ondansetron 4 mg disintegrating oral tablet (9 sources) Serotonin-3 Receptor Antagonist Start: 03-20-2023 End: 10-17-2023 take 1 tablet by mouth every six hours as needed for nausea and vomiting and nausea and nausea ondansetron ODT (Zofran-ODT) 4 MG disintegrating tablet Indications: Nausea Take 1 tablet (4 mg) by mouth every 6 (six) hours if needed for nausea or vomiting 30 tablet 2 07/19/2023 10/17/2023 Active take 1 tablet by penny th every eight hours as needed for nausea and vomiting ondansetron ODT (ZOFRAN ODT) 4 mg disintegrating tablet Dissolve 1 tablet (4 mg total) on tongue every 8 (eight) hours as needed for nausea or vomiting. Active PNV no.[id number]-ciy-oyei 400 mcg-35 mg- 25 mg-5 mg tablet,chewable (3 sources) Start: 11-07-2023 PNV no.760-[id number]-zkt-vml-zabq 400 mcg-35 mg- 25 mg-5 mg tablet,chewable Indications: 24 weeks gestation of , Single umbilical artery Take 2 gummies daily during the 60 tablet 6 11/07/2023 Active Gan416-Wshieju Fumarate-Fa () 28-800 mg-mcg Tablet (2 sources) Start: 06-10-2017 take 1 tablet by mouth once daily Nxf863-Utuyevm Fumarate-Fa () 28-800 mg-mcg Tablet Active 1 TAB PO Daily June 10, 2017 1:00am predniSONE (1 source) Start: 03-13-2013 predniSONE Oral, Daily, Refills(s) 0 Start Date: 03/13/13 Status: Ordered MV & Min w/FA-DHA ( Gummies) 0.18-25 MG chewable tablet (17 sources) MV & Mi n w/FA-DHA ( Gummies) 0.18-25 MG chewable tablet Chew 1 each Daily Active terconazole 4 mg/ml vaginal cream (4 sources) Azole Antifungal Start: 05-28-2024 End: 06-04-2024 terconazole (Terazol 7) 0.4 % vaginal cream Indications: Yeast infection Insert 1 applicator into the vagina at bedtime for 7 days 45 g 05/28/2024 06/04/2024 Active Start: 07-24-2023 End: 07-31-2023 terconazole (Terazol 7) 0.4 % vaginal cream Indications: Yeast infection Insert 1 applicator into the vagina at bedtime for 7 days 45 g 0 07/24/2023 07/31/2023 Active valACYclovir 500 mg oral tablet (20 sources) Herpesvirus Nucleoside Analog DNA Polymerase Inhibitor, Herpes Simplex Virus Nucleoside Analog DNA Polymerase Inhibitor, Herpes Zoster Virus Nucleoside Analog DNA Polymerase Inhibitor Start: 09-15-2022 End: 02-23-2024 take 1 tablet by mouth once daily valACYclovir (Valtrex) 500 MG tablet Indications: H/O herpes genitalis TAKE 1 TABLET BY MOUTH EVERY DAY 90 tablet 1 02/24/2024 Active Completed/Discontinued Medications Medication Drug Class(es) Dates Sig (Normalized) Sig (Original) acetaminophen 500 mg oral tablet (2 sources) Start: 07-16-2017 End: 07-20-2017 take 1 tablet by mouth every six hours Acetaminophen (Tylenol Extra Strength) 500 mg tablet Discontinued 500 MG PO Q6H July 16, 2017 1:00am July 20, 2017 10:58pm cephalexin 500 mg oral capsule (1 source) Cephalosporin Antibacterial Start: 01-16-2021 take 1 capsule by mouth three times daily Keflex 500 mg Cap 500 mg = 1 cap(s), Oral, TID, Take one capsule by mouth three times a day for ten days, # 30 cap(s), Refills(s) 0 Start Date: 01/16/21 Status: Ordered fluconazole 150 mg oral tablet (2 sources) Azole Antifungal Start: 04-21-2024 End: 04-21-2024 take 1 tablet by mouth once, then take 1 tablet by mouth once fluconazole (Diflucan) 150 MG tablet Indications: Yeast infection Take 1 tablet (150 mg) by mouth 1 (one) time for 1 dose This is a 1 time dose, take single tablet by mouth. 1 tablet 1 04/21/2024 04/21/2024 gabapentin 300 mg oral capsule (2 sources) Anti-epileptic Agent Start: 06-10-2017 End: 07-16-2017 take 300 mg by mouth twice daily Gabapentin Discontinued 300 MG PO Twice daily June 10, 2017 1:00am July 16, 2017 7:14pm naproxen 375 mg oral tablet (1 source) Nonsteroidal Anti-inflammatory Drug Start: 03-13-2013 take 1 tablet by mouth twice daily Naprosyn 375 mg Tab 375 mg = 1 tab(s), Oral, BID, Take one by mouth two times a day, # 21 tab(s), Refills(s) 0, 0, Print Requisition Start Date: 03/13/13 Status: Ordered Problems Active Problems Problem Classification Problem Date Documented Date Episodic/Chronic Biliary tract disease (2 sources) Biliary calculus; 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: [Calculus of gallbladder without cholecystitis without obstruction] 03-02-2024 Episodic Cardiac and circulatory congenital anomalies (5 sources) Congenital absence and hypoplasia of umbilical artery; 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] Onset: 11-07-2023 11-07-2023 Chronic Contraceptive and procreative management (2 sources) Patient encounter status; 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: [Encounter for other procreative management] 04-21-2024 Episodic Deficiency and other anemia (5 sources) Anemia, unspecified; 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: [ANEMIA UNSPECIFIED] Onset: 04-23-2022 Episodic Esophageal disorders (1 source) Gastro-esophageal reflux disease without esophagitis; 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: [GERD WITHOUT ESOPHAGITIS] Onset: 02-05-2022 Chronic Fluid and electrolyte disorders (2 sources) Dehydration; 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: [Dehydration] 06-10-2017 Episodic Hemorrhage during ; abruptio placenta; placenta previa (2 sources) Threatened miscarriage in first trimester; 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: [Threatened ] 07-21-2017 Episodic Menstrual disorders (1 source) Missed period; 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: [Irregular menstruation, unspecified] 07-17-2023 Chronic Mood disorders (1 source) Bipolar disorder, unspecified; 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: [BIPOLAR DISORDER UNSPECIFIED] Onset: 02-05-2022 Chronic Mycoses (4 sources) Mycosis; 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: [Candidiasis, unspecified] 04-21-2024 Episodic Nausea and vomiting (8 sources) Nausea; 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: [Nausea with vomiting, unspecified] [...] unspecified, unspecified trimester] Onset: 11-07-2023 Episodic Other connective tissue disease (1 source) Myalgia, unspecified site; 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: [Myalgia, unspecified site] Onset: 04-16-2024 Episodic Other and delivery including normal (3 sources) Single live ; 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: [ care status] Onset: 02-15-2022 03-23-2024 Episodic Residual codes; unclassified (1 source) 24 [...] Unclassified (1 source) Vessel cord Onset: 11-07-2023 Urinary tract infections (4 sources) Recurrent urinary tract infection; 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: [Urinary tract infection, site not specified] Onset: 05-07-2024 04-21-2024 Episodic Viral infection (2 sources) Viral disease; 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: [Viral infection, unspecified] 07-16-2017 Episodic Past or Other Problems Problem Classification Problem [...] without delivery, third trimester] Onset: 12-30-2021 Episodic Genitourinary symptoms and ill-defined conditions (20 sources) Urinary symptoms ; 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: [Unspecified symptoms and signs involving the genitourinary system] Onset: 08-19-2023 08-19-2023 Episodic Immunizations and screening for infectious disease [...] 02-15-2022 Episodic Other aftercare (1 source) 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; 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: [OTH RETIREMENT CURRENT DRUG THERAPY] Onset: 02-05-2022 Episodic Other [...] PG 2ND TRI] Onset: 09-18-2021 Episodic Other complications of (4 sources) Placenta circumvallata; 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: [Circumvallate placenta, second trimester] Onset: 11-07-2023 11-07-2023 Episodic Other connective tissue disease (1 source) Fibromyalgia; 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: [FIBROMYALGIA] Onset: 02-05-2022 Episodic Other female genital disorders (5 sources) Other specified noninflammatory disorders of vagina; 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: [OTH SPEC NONINFLAMMATORY D/O VAGINA] Onset: 10-26-2021 Episodic Other female genital disorders (17 sources) Vaginal discharge; 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: [Other specified noninflammatory disorders of vagina] Onset: 08-19-2023 08-19-2023 Episodic Other inflammatory condition of skin (5 sources) Pruritus, unspecified; 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: [PRURITUS UNSPECIFIED] Onset: 10-31-2021 Episodic Other non-traumatic joint disorders (3 sources) Pain in right ankle and joints of right foot; 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: [PAIN IN RIGHT ANKLE] Onset: 09-16-2021 Episodic Other screening for suspected conditions (not mental disorders or infectious disease) (20 sources) Encounter for screening for malignant neoplasm of cervix; 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: [Encounter for screening for diabetes mellitus] Onset: 09-28-2021 Episodic Other skin disorders (3 sources) Rash [...] WEEKS GESTATION OF ] Onset: 09-18-2021 Episodic Residual codes; unclassified (4 sources) Gestation period, 24 weeks; 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: [24 weeks gestation of ] Onset: 11-07-2023 11-07-2023 Episodic Residual codes; unclassified (4 sources) Family history of cystic fibrosis; 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: [Family history of other endocrine, nutritional and metabolic diseases] Onset: 11-07-2023 11-07-2023 Episodic Sprains and strains (1 source) Sprain of unspecified ligament of right ankle, initial encounter; 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: [SPRAIN UNS LIGAMENT RT ANKLE INIT] Onset: 09-18-2021 Episodic Results Test Name Value Interpretation Reference Range Facility URINARY TRACT INFECTION (HTR X)on 05-30-2024 ACINETOBACTER BAUMANII 0 [facility] ACINETOBACTER BAUMANII Not detected [facility] SHANNON ALBICANS, PARAPSILOSIS, TROPICALIS 0 [facility] SHANNON ALBICANS, PARAPSILOSIS, TROPICALIS Not detected [facility] SHANNON GLABRATA 0 [facility] SHANNON GLABRATA Not detected [facility] SHANNON KRUSEI 0 [facility] SHANNON KRUSEI Not detected [facility] CITROBACTER FREUNDII 0 [facility] CITROBACTER FREUNDII Not detected [facility] ENTEROBACTER AEROGENES, CLOACAE 0 [facility] ENTEROBACTER AEROGENES, CLOACAE Not detected [facility] ENTEROCOCCUS FAECALIS, FAECIUM 0 [facility] ENTEROCOCCUS FAECALIS, FAECIUM Not detected [facility] ESCHERICHIA COLI 0 [facility] ESCHERICHIA COLI Not detected [facility] Interpretation and review of laboratory results Abnormal [facility] KLEBSIELLA PNEUMONIAE, OXYTOCA 0 [facility] KLEBSIELLA PNEUMONIAE, OXYTOCA Not detected [facility] MORGANELLA MORGANII 0 [facility] MORGANELLA MORGANII Not detected [facility] PROTEUS MIRABILIS, VULGARIS 0 [facility] PROTEUS MIRABILIS, VULGARIS Not detected [facility] PSEUDOMONAS AERUGINOSA 0 [facility] PSEUDOMONAS AERUGINOSA Not detected [facility] SERRATIA MARCESCENS 0 [facility] SERRATIA MARCESCENS Not detected [facility] STAPHYLOCOCCUS AUREUS 0 [facility] STAPHYLOCOCCUS AUREUS Not detected [facility] STAPHYLOCOCCUS EPIDERMIDIS, HAEMOLYTICUS, LUGDUNENSIS, SAPROPHYTICUS (URINA 0 [facility] STAPHYLOCOCCUS EPIDERMIDIS, HAEMOLYTICUS, LUGDUNENSIS, SAPROPHYTICUS (URINA Not detected [facility] STAPHYLOCOCCUS EPIDERMIDIS, HAEMOLYTICUS, LUGDUNENSIS, SAPROPHYTICUS (URINA 29.998 Abnormal [facility] STAPHYLOCOCCUS EPIDERMIDIS, HAEMOLYTICUS, LUGDUNENSIS, SAPROPHYTICUS (URINA Detected Abnormal [facility] STREPTOCOCCUS AGALACTIAE (GROUP B STREP) 0 [facility] STREPTOCOCCUS AGALACTIAE (GROUP B STREP) Not detected [facility] STREPTOCOCCUS PYOGENES (GROUP A STREP) 0 [facility] STREPTOCOCCUS PYOGENES (GROUP A STREP) Not detected [facility] HCG ( test) Ql (U)o n 05-28-2024 Interpretation and review of laboratory results Normal [facility] Preg Test, Ur Negative Negative [facility] Urinalysis macro (dipstick) panel (U)on 05-28-2024 Bilirubin, UA Negative Negative - 4(70) +++ mg/dL [facility] Blood, UA Positive Negative - 50 Anselmo/mcL [facility] Comment on above: trace Clarity, UA Clear [facility] Color, UA Yellow [facility] Glucose, UA Negative Negative - 2000(110) ++++ mg/dL [facility] Interpretation and review of laboratory results Abnormal [facility] Ketones, UA Negative Negative - 160(16) ++++ mg/dL [facility] Leukocytes, UA Trace Negative - 500+++ Monik/mcL [facility] Nitrite, UA Negative Negative - Positive [facility] pH, UA 6.5 5 - 9 [facility] Protein, UA Negative Negative - 1999(20) ++++ mg/dL [facility] Spec Grav, UA 1.025 1 - 1.03 [facility] Urobilinogen, UA 0.2 0.2 - 12 mg/dL [facility] Urology Office/Clinic Noteon 05-07-2024 Urology Office/Clinic Note Urology Office/Clinic Note Chief Complaint recurrent utis [facility] 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 Pt states she has UTI issues since she was a little girl. Dysuria: no Incomplete bladder emptying: at times Hematuria: no Frequency: q1-2 hrs Urgency: yes Nocturia: 2x Stream: normal Leaking: no Post void dripping: no Wearing pads/ Depends: no Urge incontinence: no Stress incontinence: yes Incontinence without Sensory Awareness: no Abdominal pain: no Flank pain: no Sexual complaints: _ Review of Systems PHQ Score Initial Depression Screen Score: 4 SCORE no fever, chills, malaise, myalgia. no rash/lesions. no chest pain, palpitations, or SOB. no abdominal pain, nausea, vomiting. Physical Exam Vitals & Measurements HR: 96(Peripheral) BP: 134/82 HT: 63 in HT: 160 cm WT: 84 kg WT: 185.188 lb BMI: 32.81 General: nontoxic, NAD Mouth: moist mucosa Lungs: normal respiratory effort Cardio: regular rate, good distal perfusion Abdomen: nondistended Neurologic: Grossly normal Skin: No rashes or suspicious lesions Assessment/Plan 1. Frequent UTI (N39.0: Urinary tract infection, site not specified) 06/29/23 - Augmentin x 7d 08/19/23 - Macrobid x 7d 11/03/23 - UA only trace leuk est 11/18/23 - Keflex x 7d 01/04/24 - Acinetobacter + Staph 01/11/24 - UA neg 01/29/24 - Cx neg 02/18/24 - Macrobid x 7d 04/21/24 - Clinda x 10d + Diflucan 5 rounds abx this year. Only 1 +cx. UA IO today shows trace-int hgb, sm leuk, neg nit. BBSQ 9 very good control. Had UTIs often as a child but never saw urology. Denies any botheresome baseline sx. No flank pain. No gross hematuria. No urgency/frequency. Over last few years, every time she is at a doctor's office they have her give a urine sample and every time it shows an infection. Pt denies any UTI symptoms during these times. No change in anything while taking abx or after taking abx. Had long conversation about asymptomatic bacteruria. Recommend she not submit urine sample unless she's having UTI sx. Caveat being . Pt has been all year (baby is 3 mos old) and has 3 other kids at home. So I explained that due to the increased risk during , she should continue to give UA and treat positive urine cultures only during . Hold off on further eval for now. If gets true culture-proven UTIs, then can consider upper tract imaging, cysto, etc. Call our office w any UTI sx. Otherwise f/u PRN. Ordered: [id number] Measure Post Void residual urine and/or bladder capacity by US- non-imaging E&M of New Patient Moderate 45-59 Min 29353 Urnls Dip Stick Auto w/o Microscopy POC [id number] Follow-up With When Contact Information ZEYAD LEO, LEYDI Londono, URL Only if needed [address] [place] [address] [employer] (1) Additional Instructions: Patient Education Antibiotic Medicine, Adult Problem List/Past Medical History Ongoing Frequent UTI Historical No qualifying data Medications Valtrex 500 mg Tab, 1 mg, Oral, qPM Allergies No Known Allergies Social History Alcohol - Denies Alcohol Use, 03/13/2013 Never., 05/07/2024 Substance Abuse - Denies Substance Abuse, 03/13/2013 Never., 05/07/2024 Tobacco - Denies Tobacco Use, 03/13/2013 Never (less than 100 in lifetime) Tobacco Use:., 05/07/2024 Lab Results Ambulatory Point of Care Results Bilirubin Urine Dipstick: Negative (05/07/24 14:28:00) Blood Urine Dipstick: Trace-intact (05/07/24 14:28:00) Glucose Urine Dipstick: Negative (05/07/24 14:28:00) Ketones Urine Dipstick: Negative (05/07/24 14:28:00) Leukocytes Urine Dipstick: 1+ Small (05/07/24 14:28:00) Nitrite Urine Dipstick: Negative (05/07/24 14:28:00) Protein Urine Dipstick: Trace (05/07/24 14:28:00) Specific [place] Urine Dipstick: >=1.030 (05/07/24 14:28:00) Urine Appearance Urine Dipstick: Clear (05/07/24 14:28:00) Urine Color Urine Dipstick: Yellow (05/07/24 14:28:00) Urobilinogen Urine Dipstick: Normal 0.2-1 EU/dl (05/07/24 14:28:00) pH Urine Dipstick: 7 (05/07/24 14:28:00) Normal [facility] Comment on above: Result Comment: Elec tronically Signed By: ZEYAD LEO, LEYDI Londono\.br\Date and Time Signed: 05/07/24 15:26 EST Urinalysis macro (dipstick) panel (U)on 04-21-2024 Bilirubin, UA Negative Negative - 4(70) +++ mg/dL [facility] Blood, UA Positive Negative - 50 Anselmo/mcL [facility] Clarity, UA Clear [facility] Color, UA Yellow [facility] Glucose, UA Negative Negative - 2000(110) ++++ mg/dL [facility] Interpretation and review of laboratory results Abnormal [facility] Ketones, UA Negative Negative - 160(16) ++++ mg/dL [facility] Leukocytes, UA Trace Negative - 500+++ Monik/mcL [facility] Nitrite, UA Negative Negative - Positive [facility] pH, UA 5.5 5 - 9 [facility] Protein, UA Negative Negative - 2000(20) ++++ mg/dL [facility] Spec Grav, UA 1.025 1 - 1.03 [facility] Urobilinogen, UA 1.0 0.2 - 12 mg/dL [facility] Antinuclear Antibodieson 04-16-2024 Antinuclear Abs, IFA Positive Critically abnormal . [facility] Comment on above: Result Comment: Nega tive <1:80 Borderline 1:80 Positive >1:80 Performed By: #### C K #### [address] #### COLE #### [facility] , Note 1 Comment Normal . [facility] Comment on above: Result Comment: Kaleigh vasquez Potential Disease Association Homogeneous Systemic Lupus Erythematosus, Drug Induced Systemic Lupus Erythematosus, Chronic Autoimmune hepatitis, Juvenile Idiopathic Arthritis Speckled Sjogren Syndrome, Systemic Lupus Erythematosus, Subacute Cutaneous Lupus, Lupus, Congenital Heart Block, Mixed Connective Tissue Disease, Scleroderma-diffuse, Scleroderma-Autoimmune Myositis Overlap Syndrome, Systemic Lupus Uxcchcuhqexjd-Qxfzheqsoba-Zhzcoyjghy Myositis Overlap Syndrome, Systemic Autoimmune Rheumatic Disease, Undifferentiated Connective Tissue Disease Nucleolar Systemic Sclerosis, Scleroderma-Autoimmune Myositis Overlap Syndrome, Sjogren Syndrome, Raynaud phenomenon, Pulmonary Arterial Hypertension, Systemic Autoimmune Rheumatic Disease, Cancer Centromere Scleroderma-CREST, Limited Cutaneous SSc, Raynaud's Phenomenon, Primary Biliary Cholangitis Nuclear Dot Primary Biliary Cholangitis Nuclear Primary Biliary Cholangitis, Autoimmune Membrane Hepatitis/Liver disease, Systemic Autoimmune Rheumatic Disease, Autoimmune Cytopenias, Linear Scleroderma, Antiphospholipid Syndrome Performed at: [facility] [id number] Hydraulic Press Servicer: Chiki Santoyo PhD, Phone: [phone] PERFORMED BY: [place] [id number] PATHOLOGIST COOK HELPER DESSERT BRAD LINDSEY M.D. Performed By: #### C K #### [address] #### COLE #### [facility] , Nuclear Dot Pattern 1:1280 High . [facility] Comment on above: Result Comment: ICAP nomenclature: AC-6,7 Performed By: #### C K #### [address] #### COLE #### [facility] , Speckled Pattern 1:320 High . [facility] Comment on above: Result Comment: Dens e Fine Speckled pattern is noted. This pattern suggests the presence of DFS70 antibody which has a low prevalence in systemic autoimmune rheumatic diseases. ICAP nomenclature: AC-2,4,5,29 Performed By: #### C K #### [place] [address] [place] #### COLE #### [facility] , Creatine kinase [Enzymatic a ctivity/volume] in Serum or PlasmaOrdered By: Igor Becerra on 04-16-2024 CK [Catalytic activity/Vol] 47 U/L Normal 30-223 [facility] Comment on above: Result Comment: PERF ORMED BY: [address] [place] [address] PATHOLOGIST COOK HELPER DESSERT BRAD LINDSEY M.D. Performed By: #### C K #### [place] [address] [place] #### COLE #### [facility] , HCG QUALITATIVE*on 4 [facility] , QUAL Negative NEGATIVE [facility] [place] 03-10-2024 L Specimen: [id number] Received: 03/10/24 Status: ADRIANNE Cyr Num: [id number] Spec Type: Surgical Subm Dr: Janie Theodore DO Tissues: A Gallbladder (GALLBLADDER) Procedures: HE, Gross/Micro L3 Age/ Patient Sex Location Account Attending Physician Michelle Godinez 28/F [facility] [id number] Janie Theodore DO SPEC NUM: [id number] RECD: 03/10/24 STATUS: ADRIANNE CYR NUM: [id number] DOE: 03/10/[address]: Janie Theodore DO ENTERED: 03/10/24 [facility] DR: Peng Noyola SPEC TYPE: Surgical DEPT: FARHANA LOPEZ ENTERED BY: [id number] RECV BY: [id number] ORDERED: HE, Gross/Micro L3 ORDERED: HE, Gross/Micro L3 Pathological Diagnosis Gallbladder, cholecystectomy: -Mild to moderate cholelithiasis -Moderate calculus chronic and subacute cholecystitis, including patchy moderately admixed eosinophils within the inflammatory infiltrate -Incidental at least patchy mild cholesterolosis -Patchy mild reactive glandular epithelial atypia, otherwise without malignancy, intestinal metaplasia, or glandular dysplasia identified Clinical Information Symptomatic cholelithiasis Gross Description The specimen was received in formalin with the patient's name and gallbladder and consists of a vann-pink intact gallbladder measuring 8.0 x 2.5 x 2.5 cm. The serosal surface is pink and smooth. The wall the gallbladder measures 0.2 cm in thickness. The gallbladder is filled with a green mucus. 2 yellow cholesterol calculi are identified measuring 0.8 and 0.9 cm in greatest dimension. The mucosal surface is vann-pink with yellow reticulation. The cystic duct is compacted with a calculus. Clerical Associate sections are submitted in cassette A1. DM Specimen: [id number] Received: 03/10/24 Status: ADRIANNE Cyr Num: [id number] Spec Type: Surgical Subm Dr: Janie Theodore DO Tissues: A Gallbladder (GALLBLADDER) Procedures: Corky WILLIS/Jaquelin L3 Patient: Michelle Godinez [id number] (Continued) Specimen: [id number] Received: 03/10/241514 (Continued) Signed (signature on file) Tali Martinez MD 03/16/241921 Specimen: [id number] Received: 03/10/24 Status: ADRIANNE Cyr Num: [id number] Spec Type: Surgical Subm Dr: Janie Theodore DO Tissues: A Gallbladder (GALLBLADDER) Procedures: Corky WILLIS/Jauqelin L3 Patient: Michelle Godinez [id number] (Continued) Specimen: [id number] Received: 03/10/24 (Continued) Microscopic Description Microscopic examinations are performed supporting the above interpretation CPT Codes 23142 Specimen: [id number] Received: 03/10/24 Status: ADRIANNE Cyr Num: [id number] Spec Type: Surgical Subm Dr: Janie Theodore DO Tissues: A Gallbladder (GALLBLADDER) Procedures: Corky WILLIS/Jaquelin L3 Patient: Michelle Godinez [id number] (Continued) Signed (signature on file) Tali Martinez MD 03/16/241921 Normal [facility] ALL CBC WITH AUTO DIFFon BASOPHILS ABSOLUTE AUTO 0.1 [facility] Basophils/100 WBC (Bld) 0.5 % 0.2 - 2.0 % [facility] Eosinophils/100 WBC (Bld) 1.8 % 0.9 - 7.0 % [facility] Erythrocyte distribution width (RBC) [Ratio] 15.2 % High 11.0 - 15.0 % [facility] Hematocrit (Bld) [Volume fraction] 28.8 % Low 36.0 - 48.0 % [facility] Hemoglobin (Bld) [Mass/Vol] 9.1 g/dL Low 12.0 - 16.0 g/dL [facility] IMMATURE GRANULOCYTES ABS AUTO 0.14 High [facility] Immature granulocytes/100 WBC (Bld) 1.1 % High 0.0 - 0.5 % [facility] Interpretation and review of laboratory results Abnormal [facility] LYMPHOCYTES ABSOLUTE AUTO 2.7 [facility] Lymphocytes/100 WBC (Bld) 20.5 % 20.5 - 60.0 % [facility] MCH (RBC) [Entitic mass] 27.2 pg 26.7 - 34.0 pg [facility] MCHC (RBC) [Mass/Vol] 31.6 g/dL 29.9 - 35.2 g/dL [facility] MCV (RBC) [Entitic vol] 86.0 fL 81.0 - 99.0 fL [facility] MONOCYTES ABSOLUTE AUTO 1.1 High [facility] Monocytes/100 WBC (Bld) 8.8 % 1.7 - 12.0 % [facility] NEUTROPHILS ABSOLUTE AUTO 8.8 High [facility] Neutrophils/100 WBC (Bld) 67.3 % 43.0 - 75.0 % [facility] Platelet mean volume (Bld) [Entitic vol] 9.6 fL 9.5 - 13.5 fL [facility] TBH EO # 0.2 [facility] PLT 324 [facility] RBC 3.35 Low [facility] WBC 13.0 High [facility] WITH PLATELET NO DI FFERENTIALon 02-06-2024 Erythrocyte distribution width (RBC) [Ratio] 15.2 % High 11.0 - 15.0 % [facility] Hematocrit (Bld) [Volume fraction] 31.2 % Low 36.0 - 48.0 % [facility] Hemoglobin (Bld) [Mass/Vol] 9.8 g/dL Low 12.0 - 16.0 g/dL [facility] Interpretation and review of laboratory results Abnormal [facility] MCH (RBC) [Entitic mass] 27.3 pg 26.7 - 34.0 pg [facility] MCHC (RBC) [Mass/Vol] 31.4 g/dL 29.9 - 35.2 g/dL [facility] MCV (RBC) [Entitic vol] 86.9 fL 81.0 - 99.0 fL [facility] Platelet mean volume (Bld) [Entitic vol] 9.6 fL 9.5 - 13.5 fL [facility] PLT 342 [facility] RBC 3.59 Low [facility] WBC 10.7 [facility] ALL CBC WITH AUTO DIFFon BASOPHILS ABSOLUTE AUTO 0.1 [facility] Basophils/100 WBC (Bld) 0.7 % 0.2 - 2.0 % [facility] Eosinophils/100 WBC (Bld) 2.6 % 0.9 - 7.0 % [facility] Erythrocyte distribution width (RBC) [Ratio] 13.4 % 11.0 - 15.0 % [facility] Hematocrit (Bld) [Volume fraction] 39.0 % 36.0 - 48.0 % [facility] Hemoglobin (Bld) [Mass/Vol] 12.8 g/dL 12.0 - 16.0 g/dL [facility] IMMATURE GRANULOCYTES ABS AUTO 0.01 [facility] Immature granulocytes/100 WBC (Bld) 0.1 % 0.0 - 0.5 % [facility] LYMPHOCYTES ABSOLUTE AUTO 2.2 [facility] Lymphocytes/100 WBC (Bld) 26.1 % 20.5 - 60.0 % [facility] MCH (RBC) [Entitic mass] 28.6 pg 26.7 - 34.0 pg [facility] MCHC (RBC) [Mass/Vol] 32.8 g/dL 29.9 - 35.2 g/dL [facility] MCV (RBC) [Entitic vol] 87.2 fL 81.0 - 99.0 fL [facility] MONOCYTES ABSOLUTE AUTO 0.5 [facility] Monocytes/100 WBC (Bld) 5.7 % 1.7 - 12.0 % [facility] NEUTROPHILS ABSOLUTE AUTO 5.5 [facility] Neutrophils/100 WBC (Bld) 64.8 % 43.0 - 75.0 % [facility] Platelet mean volume (Bld) [Entitic vol] 10.1 fL 9.5 - 13.5 fL [facility] EO # 0.2 [facility] PLT 340 [facility] RBC 4.47 [facility] WBC 8.4 [facility] HCG ( test) Ql (U)o n 07-19-2023 Interpretation and review of laboratory results Abnormal [facility] Preg Test, Ur Positive [facility] Urinalysis macro (dipstick) panel (U)on 07-19-2023 Bilirubin, UA Negative Negative - 4(70) +++ mg/dL [facility] Blood, UA Positive Negative - 50 Anselmo/mcL [facility] Comment on above: moderate Clarity, UA Clear [facility] Color, UA Umbarger [facility] Glucose, UA Negative Negative - 2000(110) ++++ mg/dL [facility] Interpretation and review of laboratory results Abnormal [facility] Ketones, UA Positive Negative - 160(16) ++++ mg/dL [facility] Comment on above: trace Leukocytes, UA Positive Negative - 500+++ Monik/mcL [facility] Comment on above: small Nitrite, UA Negative Negative - Positive [facility] pH, UA 6.0 5 - 9 [facility] Protein, UA Positive Negative - 2000(20) ++++ mg/dL [facility] Comment on above: 30 Spec Grav, UA 1.030 1 - 1.03 [facility] Urobilinogen, UA 1.0 0.2 - 12 mg/dL [facility] CBC AUTO DIFFon 07-30-2022 BASO # 0.1 103/ul Normal 0.0-0.1 [facility] Comment on above: Performed By: #### U RCX #### [facility] [address] [place] [address] Dr. Caitlin Martinez Basophils/100 WBC (Bld) 1.1 % Normal 0.2-2.0 [facility] Comment on above: Performed By: #### U RCX #### [facility] [address] [place] [address] Dr. Caitlin Martinez EO # 0.3 103/ul Normal 0.0-0.7 [facility] Comment on above: Performed By: #### U RCX #### [facility] [address] [address] [address] Caitlin Martinez Eosinophils/100 WBC (Bld) 4.7 % Normal 0.9-7.0 [facility] Comment on above: Performed By: #### U RCX #### [facility] [address] [place] [address] Dr. Caitlin Martinez Erythrocyte distribution width (RBC) [Ratio] 14.7 % Normal 11.0-15.0 [facility] Comment on above: Performed By: #### U RCX #### [facility] [address] [address] [address] Caitlin Martinez Hematocrit (Bld) [Volume fraction] 39.3 % Normal 36.0-48.0 [facility] Comment on above: Performed By: #### U RCX #### [facility] [address] [address] [address] Caitlin Martinez Hemoglobin (Bld) [Mass/Vol] 12.7 g/dL Normal 12.0-16.0 [facility] Comment on above: Performed By: #### U RCX #### [facility] [address] [address] [address] Caitlin Martinez IG # 0.02 10e3/ul Normal 0.00-0.03 [facility] Comment on above: Performed By: #### U RCX #### [facility] [address] [place] [address] Dr. Caitlin Martinez IG % 0.3 % Normal 0.0-0.5 [facility] Comment on above: Performed By: #### U RCX #### [facility] [address] [place] [address] Dr. Caitlin Martinez LYMPH # 2.5 103/ul Normal 1.2-3.8 [facility] Comment on above: Performed By: #### U RCX #### [facility] [address] [place] [address] Dr. Caitlin Martinez Lymphocytes/100 WBC (Bld) 34.5 % Normal 20.5-60.0 [facility] Comment on above: Performed By: #### U RCX #### [facility] [address] [place] [address] Dr. Caitlin Martinez MANUAL DIFF REQ NO Normal [facility] Comment on above: Performed By: #### U RCX #### [facility] [address] [place] [address] Dr. Caitlin Martinez MCH (RBC) [Entitic mass] 27.3 pg Normal 26.7-34.0 [facility] Comment on above: Performed By: #### U RCX #### [facility] [address] [place] [address] Dr. Caitlin Martinez MCHC (RBC) [Mass/Vol] 32.3 g/dL Normal 29.9-35.2 [facility] Comment on above: Performed By: #### U RCX #### [facility] [address] [address] [address] Caitlin Martinez MCV (RBC) [Entitic vol] 84.5 fL Normal 81.0-99.0 [facility] Comment on above: Performed By: #### U RCX #### [facility] [address] [address] [address] Caitlin Martinez MONO # 0.5 103/ul Normal 0.3-0.8 [facility] Comment on above: Performed By: #### U RCX #### [facility] [address] [place] [address] Dr. Caitlin aMrtinez Monocytes/100 WBC (Bld) 7.3 % Normal 1.7-12.0 [facility] Comment on above: Performed By: #### U RCX #### [facility] [address] [place] [address] Dr. Caitlin Martinez NEUT # 3.8 103/ul Normal 1.4-6.5 [facility] Comment on above: Performed By: #### U RCX #### [facility] [address] [place] [address] Dr. Caitlin Martinez Neutrophils/100 WBC (Bld) 52.1 % Normal 43.0-75.0 [facility] Comment on above: Performed By: #### U RCX #### [facility] [address] [address] [address] Caitlin Martinez Platelet mean volume (Bld) [Entitic vol] 9.0 fL Critically low 9.5-13.5 [facility] Comment on above: Performed By: #### U RCX #### [facility] [address] [place] [address] Dr. Caitlin Martinez PLT 368 103/ul Normal 150-450 [facility] Comment on above: Performed By: #### U RCX #### [facility] [address] [address] [address] Caitlin Martinez RBC 4.65 106/ul Normal 4.20-5.40 [facility] Comment on above: Performed By: #### U RCX #### [facility] [address] [address] [address] Caitlin Martinez WBC 7.2 103/ul Normal 4.0-11.0 [facility] Comment on above: Performed By: #### U RCX #### [facility] [address] [place] [address] Dr. Caitlin Martinez IRONon 07-30-2022 Iron [Mass/Vol] 43.0 ug/dL Critically low 50.0-170.0 [facility] Comment on above: Performed By: #### U RCX #### [facility] [address] [place] [address] Dr. Caitlin Martinez PAP ACOG PANEL 2: 21 to 29on 07-30-2022 . . Normal [facility] Comment on above: Performed By: #### U RCX #### [facility] [address] [place] [address] Dr. Caitlin Martinez Age Gdln ACOG Testing - [facility] Comment on above: Performed By: #### U RCX #### [facility] [address] [place] [address] Dr. Caitlin Martinez DIAGNOSIS: Comment Normal [facility] Comment on above: Result Comment: NEGA TIVE FOR INTRAEPITHELIAL LESION OR MALIGNANCY. Performed By: #### U RCX #### [facility] [address] [place] [address] Dr. Caitlin Martinez Methodology: Comment Normal [facility] Comment on above: Result Comment: This liquid based ThinPrep(R) pap test was screened with the use of an image guided system. Performed By: #### U RCX #### [facility] [address] [place] [address] Dr. Caitlin Martinez Note: Comment Normal [facility] Comment on above: Result Comment: The Pap smear is a screening test designed to aid in the detection of premalignant and malignant conditions of the uterine cervix. It is not a diagnostic procedure and should not be used as the sole means of detecting cervical cancer. Both false-positive and false-negative reports do occur. . Performed By: #### U RCX #### [facility] [address] [place] [address] Dr. Caitlin Martinez Performed by: Comment Normal [facility] Comment on above: Result Comment: Bhavna Cormier, Petroleum Laboratory Technician (ASCP) Performed By: #### U RCX #### [facility] [address] [place] [address] Dr. Caitlin Martinez Reflex Criteria: Comment Normal [facility] Comment on above: Result Comment: The HPV DNA reflex criteria were not met with this specimen result therefore, no HPV testing was performed. . Performed By: #### U RCX #### [facility] [address] [place] [address] Dr. Caitlin Martinez Specimen adequacy: Comment Normal [facility] Comment on above: Result Comment: Sati sfactory for evaluation. Endocervical and/or squamous metaplastic cells (endocervical component) are present. Performed By: #### U RCX #### [facility] [address] [place] [address] Dr. Caitlin Martinez INSULINon 04-19-2022 Insulin 9.1 uIU/mL Normal 2.6-24.9 [facility] Comment on above: Performed By: #### I HORACIO #### [facility] [address] [place] [address] Dr. Caitlin Martinez CBC AUTO DIFFon 04-18-2022 BASO # 0.1 103/ul Normal 0.0-0.1 [facility] Comment on above: Performed By: #### U RCX #### [facility] [address] [place] [address] Dr. Caitlin Martinez Basophils/100 WBC (Bld) 1.0 % Normal 0.2-2.0 [facility] Comment on above: Performed By: #### U RCX #### [facility] [address] [place] [address] Dr. Caitlin Martinez EO # 0.3 103/ul Normal 0.0-0.7 [facility] Comment on above: Performed By: #### U RCX #### [facility] [address] [address] [address] Caitlin Martinez Eosinophils/100 WBC (Bld) 4.1 % Normal 0.9-7.0 [facility] Comment on above: Performed By: #### U RCX #### [facility] [address] [place] [address] Dr. Caitlin Martinez Erythrocyte distribution width (RBC) [Ratio] 16.0 % Critically high 11.0-15.0 [facility] Comment on above: Performed By: #### U RCX #### [facility] [address] [place] [address] Dr. Caitlin Martinez Hematocrit (Bld) [Volume fraction] 35.7 % Critically low 36.0-48.0 [facility] Comment on above: Performed By: #### U RCX #### [facility] [address] [place] [address] Dr. Caitlin Martinez Hemoglobin (Bld) [Mass/Vol] 10.9 g/dL Critically low 12.0-16.0 [facility] Comment on above: Performed By: #### U RCX #### [facility] [address] [place] [address] Dr. Caitlin Martinez IG # 0.07 10e3/ul Critically high 0.00-0.03 [facility] Comment on above: Performed By: #### U RCX #### [facility] [address] [place] [address] Dr. Caitlin Martinez IG % 1.0 % Critically high 0.0-0.5 [facility] Comment on above: Performed By: #### U RCX #### [facility] [address] [place] [address] Dr. Caitlin Martinez LYMPH # 2.3 103/ul Normal 1.2-3.8 [facility] Comment on above: Performed By: #### U RCX #### [facility] [address] [place] [address] Dr. Caitlin Martinez Lymphocytes/100 WBC (Bld) 31.4 % Normal 20.5-60.0 [facility] Comment on above: Performed By: #### U RCX #### [facility] [address] [place] [address] Dr. Caitlin Martinez MANUAL DIFF REQ NO Normal [facility] Comment on above: Performed By: #### U RCX #### [facility] [address] [place] [address] Dr. Caitlin Martinez MCH (RBC) [Entitic mass] 24.8 pg Critically low 26.7-34.0 [facility] Comment on above: Performed By: #### U RCX #### [facility] [address] [place] [address] Dr. Caitlin Martinez MCHC (RBC) [Mass/Vol] 30.5 g/dL Normal 29.9-35.2 [facility] Comment on above: Performed By: #### U RCX #### [facility] [address] [place] [address] Dr. Caitlin Martinez MCV (RBC) [Entitic vol] 81.1 fL Normal 81.0-99.0 [facility] Comment on above: Performed By: #### U RCX #### [facility] [address] [place] [address] Dr. Caitlin Martinez MONO # 0.5 103/ul Normal 0.3-0.8 [facility] Comment on above: Performed By: #### U RCX #### [facility] [address] [place] [address] Dr. Caitlin Martinez Monocytes/100 WBC (Bld) 6.6 % Normal 1.7-12.0 [facility] Comment on above: Performed By: #### U RCX #### [facility] [address] [place] [address] Dr. Caitlin Martinez NEUT # 4.1 103/ul Normal 1.4-6.5 [facility] Comment on above: Performed By: #### U RCX #### [facility] [address] [place] [address] Dr. Caitlin Martinez Neutrophils/100 WBC (Bld) 55.9 % Normal 43.0-75.0 [facility] Comment on above: Performed By: #### U RCX #### [facility] [address] [place] [address] Dr. Caitlin Martinez Platelet mean volume (Bld) [Entitic vol] 9.4 fL Critically low 9.5-13.5 [facility] Comment on above: Performed By: #### U RCX #### [facility] [address] [address] [address] Caitlin Martinez PLT 369 103/ul Normal 150-450 [facility] Comment on above: Performed By: #### U RCX #### [facility] [address] [place] [address] Dr. Caitlin Martinez RBC 4.40 106/ul Normal 4.20-5.40 [facility] Comment on above: Performed By: #### U RCX #### [facility] [address] [place] [address] Dr. Caitlin Martinez WBC 7.3 103/ul Normal 4.0-11.0 [facility] Comment on above: Performed By: #### U RCX #### [facility] [address] [place] [address] Dr. Caitlin Martinez FREE THYROXINE INDEX T7on FTI 2.20 Normal 1.30-4.50 [facility] Comment on above: Performed By: #### I HORACIO #### [facility] [address] [place] [address] Dr. Caitlin Martinez T3U 29.0 % Critically low 30.0-39.0 [facility] Comment on above: Performed By: #### I HORACIO #### [facility] [address] [place] [address] Dr. Caitlin Martinez T4 [Mass/Vol] 7.60 ug/dL Normal 4.80-13.90 [facility] Comment on above: Performed By: #### I HORACIO #### [facility] [address] [place] [address] Dr. Caitlin Martinez GLYCOHEMOGLOBIN A1Con 2021 ADA RECOMMENDATION SEE BELOW Normal [facility] Comment on above: Result Comment: ADA RECOMMENDED LIMIT 4.0 - 6.0 ADA THERAPEUTIC TARGET < 7.0 ACTION SUGGESTED > 7.0 Performed By: #### U RCX #### [facility] [address] [place] [address] Dr. Ciatlin Martinez Glucose [Mass/Vol] 97 mg/dL Normal [facility] Comment on above: Performed By: #### U RCX #### [facility] [address] [address] [address] Caitlin Martinez HbA1c (Bld) [Mass fraction] 5.0 % Normal 4.5-6.2 [facility] Comment on above: Performed By: #### U RCX #### [facility] [address] [place] [address] Dr. Caitlin Martinez IRONon 04-18-2022 Iron [Mass/Vol] 35.0 ug/dL Critically low 50.0-170.0 [facility] Comment on above: Performed By: #### I HORACIO #### [facility] [address] [place] [address] Dr. Caitlin Martinez LIPID PROFILEon 04-18-2022 CHOL-HDL RATIO NORM SEE BELOW Normal [facility] Comment on above: Result Comment: 3.3 - 4.4 LOW RISK 4.4 - 7.1 AVERAGE RISK 7.1 - 11.0 MODERATE RISK >11.0 HIGH RISK Performed By: #### I HORACIO #### [facility] [address] [place] [address] Dr. Caitlin Martinez Cholesterol [Mass/Vol] 221 mg/dL Critically high <=200 [facility] Comment on above: Performed By: #### I HORACIO #### [facility] [address] [address] [address] aCitlin Martinez Cholesterol in HDL [Mass/Vol] 67 mg/dL Critically high 40-60 [facility] Comment on above: Performed By: #### I HORACIO #### [facility] [address] [address] [address] Caitlin Martinez Cholesterol in LDL [Mass/Vol] 142.4 mg/dL Normal [facility] Comment on above: Performed By: #### I HORACIO #### [facility] [address] [address] [address] Caitlin Martinez Cholesterol.total/Ch olesterol in HDL [Mass ratio] 3.3 {ratio} Normal [facility] Comment on above: Performed By: #### I HORACIO #### [facility] [address] [address] [address] Caitlin Martinez HDL NORMAL > or = 60 mg/dl - LOW CARDIOVASCULAR RISK <40 mg/dl - HIGH CARDIOVASCULAR RISK Normal [facility] Comment on above: Performed By: #### I HORACIO #### [facility] [address] [address] [address] Caitlin Martinez LDL CALC NORMAL SEE BELOW Normal [facility] Comment on above: Result Comment: <100 mg/dl OPTIMAL 100 - 129 mg/dl NEAR OR ABOVE OPTIMAL 130 - 159 mg/dl BORDERLINE HIGH 160 - 189 mg/dl HIGH >190 mg/dl VERY HIGH Performed By: #### I HORACIO #### [facility] [address] [address] [address] Caitlin Martinez Triglyceride [Mass/Vol] 58 mg/dL Normal <=150 [facility] Comment on above: Performed By: #### I HORACIO #### [facility] [address] [place] [address] Dr. Caitlin Martinez VLDL CALC 11.6 mg/dL Normal [facility] Comment on above: Performed By: #### I HORACIO #### [facility] [address] [address] [address] Caitlin Martinez PROF 14(COMP METB)on 022 Albumin [Mass/Vol] 3.8 g/dL Normal 3.4-5.0 [facility] Comment on above: Performed By: #### I HORACIO #### [facility] [address] [place] [address] Dr. Caitlin Martinez Albumin/Globulin [Mass ratio] 1.1 {ratio} Normal [facility] Comment on above: Performed By: #### I HORACIO #### [facility] [address] [place] [address] Dr. Caitlin Martinez ALP [Catalytic activity/Vol] 132 U/L Critically high 46-116 [facility] Comment on above: Performed By: #### I HORACIO #### [facility] [address] [address] [address] Caitlin Martinez ALT [Catalytic activity/Vol] 55 U/L Normal 14-59 [facility] Comment on above: Performed By: #### I HORACIO #### [facility] [address] [address] [address] Caitlin Martinez Anion gap [Moles/Vol] 12.6 mmol/L Normal [facility] Comment on above: Performed By: #### I HORACIO #### [facility] [address] [place] [address] Dr. Caitlin Martinez AST [Catalytic activity/Vol] 27 U/L Normal 15-37 [facility] Comment on above: Performed By: #### I HORACIO #### [facility] [address] [place] [address] Dr. Caitlin Martinez Bilirubin [Mass/Vol] 0.6 mg/dL Normal 0.2-1.0 [facility] Comment on above: Performed By: #### I HORACIO #### [facility] [address] [place] [address] Dr. Caitlin Martinez Calcium [Mass/Vol] 9.1 mg/dL Normal 8.5-10.1 [facility] Comment on above: Performed By: #### I HORACIO #### [facility] [address] [place] [address] Dr. Caitlin Martinez Chloride [Moles/Vol] 106 mmol/L Normal 98-107 [facility] Comment on above: Performed By: #### I HORACIO #### [facility] [address] [address] [address] Caitlin Martinez CO2 [Moles/Vol] 26.5 mmol/L Normal 21.0-32.0 [facility] Comment on above: Performed By: #### I HORACIO #### [facility] [address] [place] [address] Dr. Caitlin Martinez Creatinine [Mass/Vol] 0.63 mg/dL Normal 0.55-1.02 [facility] Comment on above: Performed By: #### I HORACIO #### [facility] [address] [address] [address] Caitlin Martinez EGFR-AF BARBADIAN >60 Normal >=60 [facility] Comment on above: Performed By: #### I HORACIO #### [facility] [address] [address] [address] Caitlin Martinez EGFR-NON AF BARBADIAN >60 Normal >=60 [facility] Comment on above: Performed By: #### I HORACIO #### [facility] [address] [address] [address] Caitlin Martinez Globulin (S) [Mass/Vol] 3.6 g/dL Normal [facility] Comment on above: Performed By: #### I HORACIO #### [facility] [address] [place] [address] Dr. Caitlin Martinez Glucose [Mass/Vol] 98 mg/dL Normal 74-106 [facility] Comment on above: Performed By: #### I HORACIO #### [facility] [address] [address] [address] Caitlin Martinez Potassium [Moles/Vol] 4.1 mmol/L Normal 3.5-5.1 [facility] Comment on above: Performed By: #### I HORACIO #### [facility] [address] [place] [address] Dr. Caitlin Martinez Protein [Mass/Vol] 7.4 g/dL Normal 6.4-8.2 [facility] Comment on above: Performed By: #### I HORACIO #### [facility] [address] [address] [address] Caitlin Martinez Sodium [Moles/Vol] 141 mmol/L Normal 136-145 [facility] Comment on above: Performed By: #### I HORACIO #### [facility] [address] [address] [address] Caitlin Martinez Urea nitrogen [Mass/Vol] 9.0 mg/dL Normal 7.0-18.0 [facility] Comment on above: Performed By: #### I HORACIO #### [facility] [address] [place], [place] [address] Dr. Caitlin Martinez Urea nitrogen/Creatinine [Mass ratio] 14.3 mg/mg Normal [facility] Comment on above: Performed By: #### I HORACIO #### [facility] [address] [place], [place] [address] Dr. Caitlin Martinez TSHon 04-18-2022 TSH 1.349 uIU/mL Normal 0.358-3.740 [facility] Comment on above: Performed By: #### I HORACIO #### [facility] [address] [address] [address] Caitlin Martinez ANTIBODY ID PANELon 02-15-20 22 ANTIBODY ID PANEL Antibody ID Anti-D Blood Bank Notes most likely due to Rhogam given on 12/01/21 Normal [facility] Comment on above: Performed By: #### D IRCMB, ABID #### [facility] [address] [place] [address] Dr. Caitlin Martinez CTA CHEST WO W [...] The lungs are clear. Electronically authenticated by: PILAR WHEELER Date: 2022-02-10 22:55 Normal [facility] CBC AUTO DIFFon 02-10-2022 BASO # 0.1 103/ul Normal 0.0-0.1 [facility] Comment on above: Performed By: #### C BC #### [facility] [address] [address] [address] Caitlin Martinez Basophils/100 WBC (Bld) 0.4 % Normal 0.2-2.0 [facility] Comment on above: Performed By: #### C BC #### [facility] [address] [address] [address] Caitlin Martinez EO # 0.5 103/ul Normal 0.0-0.7 [facility] Comment on above: Performed By: #### C BC #### [facility] [address] [address] [address] Caitlin Martinez Eosinophils/100 WBC (Bld) 4.2 % Normal 0.9-7.0 [facility] Comment on above: Performed By: #### C BC #### [facility] [address] [place] [address] Dr. Caitlin Martinez Erythrocyte distribution width (RBC) [Ratio] 14.7 % Normal 11.0-15.0 [facility] Comment on above: Performed By: #### C BC #### [facility] [address] [place] [address] Dr. Caitlin Martinez Hematocrit (Bld) [Volume fraction] 31.1 % Critically low 36.0-48.0 [facility] Comment on above: Performed By: #### C BC #### [facility] [address] [place] [address] Dr. Caitlin Martinez Hemoglobin (Bld) [Mass/Vol] 9.6 g/dL Critically low 12.0-16.0 [facility] Comment on above: Performed By: #### C BC #### [facility] [address] [place] [address] Dr. Caitlin Martinez IG # 0.28 10e3/ul Critically high 0.00-0.03 [facility] Comment on above: Performed By: #### C BC #### [facility] [address] [place] [address] Dr. Caitlin Martinez IG % 2.3 % Critically high 0.0-0.5 [facility] Comment on above: Performed By: #### C BC #### [facility] [address] [address] [address] Caitlin Martinez LYMPH # 3.3 103/ul Normal 1.2-3.8 [facility] Comment on above: Performed By: #### C BC #### [facility] [address] [address] [address] Caitlin Martinez Lymphocytes/100 WBC (Bld) 26.9 % Normal 20.5-60.0 [facility] Comment on above: Performed By: #### C BC #### [facility] [address] [place] [address] Dr. Caitlin Martinez MANUAL DIFF REQ NO Normal [facility] Comment on above: Performed By: #### C BC #### [facility] [address] [place] [address] Dr. Caitlin Martinez MCH (RBC) [Entitic mass] 26.2 pg Critically low 26.7-34.0 [facility] Comment on above: Performed By: #### C BC #### [facility] [address] [place] [address] Dr. Caitlin Martinez MCHC (RBC) [Mass/Vol] 30.9 g/dL Normal 29.9-35.2 [facility] Comment on above: Performed By: #### C BC #### [facility] [address] [place] [address] Dr. Caitlin Martinez MCV (RBC) [Entitic vol] 84.7 fL Normal 81.0-99.0 [facility] Comment on above: Performed By: #### C BC #### [facility] [address] [place] [address] Dr. Caitlin Martinez MONO # 1.1 103/ul Critically high 0.3-0.8 [facility] Comment on above: Performed By: #### C BC #### [facility] [address] [place] [address] Dr. Caitlin Martinez Monocytes/100 WBC (Bld) 8.7 % Normal 1.7-12.0 [facility] Comment on above: Performed By: #### C BC #### [facility] [address] [address] [address] Caitlin Martinez NEUT # 7.0 103/ul Critically high 1.4-6.5 [facility] Comment on above: Performed By: #### C BC #### [facility] [address] [id number] Caitlin Martinez Neutrophils/100 WBC (Bld) 57.5 % Normal 43.0-75.0 [facility] Comment on above: Performed By: #### C BC #### [facility] [address] [address] [address] Caitlin Martinez Platelet mean volume (Bld) [Entitic vol] 9.1 fL Critically low 9.5-13.5 [facility] Comment on above: Performed By: #### C BC #### [facility] [address] [place] [address] Dr. Caitlin Martinez PLT 437 103/ul Normal 150-450 [facility] Comment on above: Performed By: #### C BC #### [facility] [address] [place] [address] Dr. Caitlin Martinez RBC 3.67 106/ul Critically low 4.20-5.40 [facility] Comment on above: Performed By: #### C BC #### [facility] [address] [place] [address] Dr. Caitlin Martinez WBC 12.3 103/ul Critically high 4.0-11.0 [facility] Comment on above: Performed By: #### C BC #### [facility] [address] [place] [address] Dr. Caitlin Martinez [facility] SARS-CoV-2 (COVID-19) RNA JONATAN+probe Ql (Unsp spec) Not detected Normal NOT DETECTED [facility] Comment on [...] for this test is supported by the [place] of [employer] and Human Service's declaration that [...] used). Performed By: #### C VDTBH #### [facility] [address] [place] [address] Dr. Caitlin Martinez PROF 14(COMP METB)on 022 Albumin [Mass/Vol] 2.1 g/dL Critically low 3.4-5.0 [facility] Comment on above: Performed By: #### U RCX #### [facility] [address] [place] [address] Dr. Caitlin Martinez Albumin/Globulin [Mass ratio] 0.5 {ratio} Normal [facility] Comment on above: Performed By: #### U RCX #### [facility] [address] [place] [address] Dr. Caitlin Martinez ALP [Catalytic activity/Vol] 202 U/L Critically high 46-116 [facility] Comment on above: Performed By: #### U RCX #### [facility] [address] [place] [address] Dr. Caitlin Martinez ALT [Catalytic activity/Vol] 20 U/L Normal 14-59 [facility] Comment on above: Performed By: #### U RCX #### [facility] [address] [place] [address] Dr. Caitlin Martinez Anion gap [Moles/Vol] 11.6 mmol/L Normal [facility] Comment on above: Performed By: #### U RCX #### [facility] [address] [place] [address] Dr. Caitlin Martinez AST [Catalytic activity/Vol] 17 U/L Normal 15-37 [facility] Comment on above: Performed By: #### U RCX #### [facility] [address] [address] [address] Caitlin Martinez Bilirubin [Mass/Vol] 0.3 mg/dL Normal 0.2-1.0 [facility] Comment on above: Performed By: #### U RCX #### [facility] [address] [address] [address] Caitlin Martinez Calcium [Mass/Vol] 9.2 mg/dL Normal 8.5-10.1 [facility] Comment on above: Performed By: #### U RCX #### [facility] [address] [address] [address] Caitlin Martinez Chloride [Moles/Vol] 104 mmol/L Normal 98-107 [facility] Comment on above: Performed By: #### U RCX #### [facility] [address] [address] [address] Caitlin Martinez CO2 [Moles/Vol] 26.9 mmol/L Normal 21.0-32.0 [facility] Comment on above: Performed By: #### U RCX #### [facility] [address] [address] [address] Caitlin Martinez Creatinine [Mass/Vol] 0.56 mg/dL Normal 0.55-1.02 [facility] Comment on above: Performed By: #### U RCX #### [facility] [address] [address] [address] Caitlin Martinez EGFR-AF BARBADIAN >60 Normal >=60 [facility] Comment on above: Performed By: #### U RCX #### [facility] [address] [address] [address] Caitlin Martinez EGFR-NON AF BARBADIAN >60 Normal >=60 [facility] Comment on above: Performed By: #### U RCX #### [facility] [address] [address] [address] Caitlin Martinez Globulin (S) [Mass/Vol] 4.4 g/dL Normal [facility] Comment on above: Performed By: #### U RCX #### [facility] [address] [address] [address] Caitlin Martinez Glucose [Mass/Vol] 108 mg/dL Critically high 74-106 [facility] Comment on above: Performed By: #### U RCX #### [facility] [address] [address] [address] Caitlin Martinez Potassium [Moles/Vol] 3.5 mmol/L Normal 3.5-5.1 [facility] Comment on above: Performed By: #### U RCX #### [facility] [address] [address] [address] Caitlin Martinez Protein [Mass/Vol] 6.5 g/dL Normal 6.4-8.2 [facility] Comment on above: Performed By: #### U RCX #### [facility] [address] [place] [address] Dr. Caitlin Martinez Sodium [Moles/Vol] 139 mmol/L Normal 136-145 [facility] Comment on above: Performed By: #### U RCX #### [facility] [address] [address] [address] Caitlin Martinez Urea nitrogen [Mass/Vol] 7.0 mg/dL Normal 7.0-18.0 [facility] Comment on above: Performed By: #### U RCX #### [facility] [address] [place] [address] Dr. Caitlin Martinez Urea nitrogen/Creatinine [Mass ratio] 12.5 mg/mg Normal [facility] Comment on above: Performed By: #### U RCX #### [facility] [address] [place] [address] Dr. Caitlin Martinez TROPONIN, HIGH SENSITIVITYon 02-10-2022 HSTROP <4.0 Normal 4.0-51.3 [facility] Comment on above: Result Comment: CUT- OFF POINTS HAVE BEEN ESTABLISHED BASED ON THE FOURTH UNIVERSAL DEFINITIONS OF MYOCARDIAL INFARCTION. THE UPPER REFERENCE LIMIT (URL) OF TROPONIN, DEFINED THE 99TH PERCENTILE OF cTnI DISTRIBUTION IN A REFERENCE POPULATION, HAS BEEN CONFIRMED THE DECISION THRESHOLD FOR [place] DIAGNOSIS. Performed By: #### U RCX #### [facility] [address] [address] [address] Caitlin Martinez CBC AUTO DIFFon 02-09-2022 BASO # 0.1 103/ul Normal 0.0-0.1 [facility] Comment on above: Performed By: #### U RCX #### [facility] [address] [address] [address] Caitlin Martinez Basophils/100 WBC (Bld) 0.6 % Normal 0.2-2.0 [facility] Comment on above: Performed By: #### U RCX #### [facility] [address] [address] [address] Caitlin Martinez EO # 0.3 103/ul Normal 0.0-0.7 [facility] Comment on above: Performed By: #### U RCX #### [facility] [address] [place] [address] Dr. Caitlin Martinez Eosinophils/100 WBC (Bld) 2.3 % Normal 0.9-7.0 [facility] Comment on above: Performed By: #### U RCX #### [facility] [address] [address] [address] Caitlin Martinez Erythrocyte distribution width (RBC) [Ratio] 14.6 % Normal 11.0-15.0 [facility] Comment on above: Performed By: #### U RCX #### [facility] [address] [address] [address] Caitlin Martinez Hematocrit (Bld) [Volume fraction] 28.8 % Critically low 36.0-48.0 [facility] Comment on above: Performed By: #### U RCX #### [facility] [address] [address] [address] Caitlin Martinez Hemoglobin (Bld) [Mass/Vol] 9.0 g/dL Critically low 12.0-16.0 [facility] Comment on above: Performed By: #### U RCX #### [facility] [address] [address] [address] Caitlin Martinez IG # 0.20 10e3/ul Critically high 0.00-0.03 [facility] Comment on above: Performed By: #### U RCX #### [facility] [address] [address] [address] Caitlin Martinez IG % 1.5 % Critically high 0.0-0.5 [facility] Comment on above: Performed By: #### U RCX #### [facility] [address] [address] [address] Caitlin Martinez LYMPH # 3.0 103/ul Normal 1.2-3.8 [facility] Comment on above: Performed By: #### U RCX #### [facility] [address] [address] [address] Caitlin Martinez Lymphocytes/100 WBC (Bld) 22.2 % Normal 20.5-60.0 [facility] Comment on above: Performed By: #### U RCX #### [facility] [address] [address] [address] Caitlin Martinez MANUAL DIFF REQ NO Normal [facility] Comment on above: Performed By: #### U RCX #### [facility] [address] [address] [address] Caitlin Martinez MCH (RBC) [Entitic mass] 26.2 pg Critically low 26.7-34.0 [facility] Comment on above: Performed By: #### U RCX #### [facility] [address] [address] [address] Caitlin Martinez MCHC (RBC) [Mass/Vol] 31.3 g/dL Normal 29.9-35.2 [facility] Comment on above: Performed By: #### U RCX #### [facility] [address] [address] [address] Caitlin Martinez MCV (RBC) [Entitic vol] 83.7 fL Normal 81.0-99.0 [facility] Comment on above: Performed By: #### U RCX #### [facility] [address] [address] [address] Caitlin Martinez MONO # 1.3 103/ul Critically high 0.3-0.8 [facility] Comment on above: Performed By: #### U RCX #### [facility] [address] [address] [address] Caitlin Martinez Monocytes/100 WBC (Bld) 9.8 % Normal 1.7-12.0 [facility] Comment on above: Performed By: #### U RCX #### [facility] [address] [address] [address] Caitlin Martinez NEUT # 8.5 103/ul Critically high 1.4-6.5 [facility] Comment on above: Performed By: #### U RCX #### [facility] [address] [address] [address] Caitlin Martinez Neutrophils/100 WBC (Bld) 63.6 % Normal 43.0-75.0 [facility] Comment on above: Performed By: #### U RCX #### [facility] [address] [place] [address] Dr. Caitlin Martinez Platelet mean volume (Bld) [Entitic vol] 9.1 fL Critically low 9.5-13.5 [facility] Comment on above: Performed By: #### U RCX #### [facility] [address] [place] [address] Dr. Caitlin Martinez PLT 355 103/ul Normal 150-450 [facility] Comment on above: Performed By: #### U RCX #### [facility] [address] [address] [address] Caitlin Martinez RBC 3.44 106/ul Critically low 4.20-5.40 [facility] Comment on above: Performed By: #### U RCX #### [facility] [address] [address] [address] Caitlin Martinez WBC 13.3 103/ul Critically high 4.0-11.0 [facility] Comment on above: Performed By: #### U RCX #### [facility] [address] [place] [address] Dr. Caitlin Martinez SCREENon 02-09-2022 SCREEN Negative Normal [facility] Comment on above: Performed By: #### F ETSCRN #### [facility] [address] [address] [address] Caitlin Martinez CBC AUTO DIFFon 02-08-2022 BASO # 0.1 103/ul Normal 0.0-0.1 [facility] Comment on above: Performed By: #### U RCX #### [facility] [address] [address] [address] Caitlin Martinez Basophils/100 WBC (Bld) 0.4 % Normal 0.2-2.0 [facility] Comment on above: Performed By: #### U RCX #### [facility] [address] [place] [address] Dr. Caitlin Martinez EO # 0.3 103/ul Normal 0.0-0.7 [facility] Comment on above: Performed By: #### U RCX #### [facility] [address] [place] [address] Dr. Caitlin Martinez Eosinophils/100 WBC (Bld) 2.6 % Normal 0.9-7.0 [facility] Comment on above: Performed By: #### U RCX #### [facility] [address] [place] [address] Dr. Caitlin Martinez Erythrocyte distribution width (RBC) [Ratio] 14.7 % Normal 11.0-15.0 [facility] Comment on above: Performed By: #### U RCX #### [facility] [address] [place] [address] Dr. Caitlin Martinez Hematocrit (Bld) [Volume fraction] 30.6 % Critically low 36.0-48.0 [facility] Comment on above: Performed By: #### U RCX #### [facility] [address] [place] [address] Dr. Caitlin Martinez Hemoglobin (Bld) [Mass/Vol] 9.7 g/dL Critically low 12.0-16.0 [facility] Comment on above: Performed By: #### U RCX #### [facility] [address] [place] [address] Dr. Caitlin Martinez IG # 0.15 10e3/ul Critically high 0.00-0.03 [facility] Comment on above: Performed By: #### U RCX #### [facility] [address] [place] [address] Dr. Caitlin Martinez IG % 1.3 % Critically high 0.0-0.5 [facility] Comment on above: Performed By: #### U RCX #### [facility] [address] [place] [address] Dr. Caitlin Martinez LYMPH # 2.8 103/ul Normal 1.2-3.8 [facility] Comment on above: Performed By: #### U RCX #### [facility] [address] [place] [address] Dr. Caitlin Martinez Lymphocytes/100 WBC (Bld) 24.8 % Normal 20.5-60.0 [facility] Comment on above: Performed By: #### U RCX #### [facility] [address] [place] [address] Dr. Caitlin Martinez MANUAL DIFF REQ NO Normal [facility] Comment on above: Performed By: #### U RCX #### [facility] [address] [place] [address] Dr. Caitlin Martinez MCH (RBC) [Entitic mass] 26.6 pg Critically low 26.7-34.0 [facility] Comment on above: Performed By: #### U RCX #### [facility] [address] [place] [address] Dr. Caitlin Martinez MCHC (RBC) [Mass/Vol] 31.7 g/dL Normal 29.9-35.2 [facility] Comment on above: Performed By: #### U RCX #### [facility] [address] [place] [address] Dr. Caitlin Martinez MCV (RBC) [Entitic vol] 83.8 fL Normal 81.0-99.0 [facility] Comment on above: Performed By: #### U RCX #### [facility] [address] [place] [address] Dr. Caitlin Martinez MONO # 1.0 103/ul Critically high 0.3-0.8 [facility] Comment on above: Performed By: #### U RCX #### [facility] [address] [place] [address] Dr. Caitlin Martinez Monocytes/100 WBC (Bld) 8.7 % Normal 1.7-12.0 [facility] Comment on above: Performed By: #### U RCX #### [facility] [address] [place] [address] Dr. Caitlin Martinez NEUT # 7.0 103/ul Critically high 1.4-6.5 [facility] Comment on above: Performed By: #### U RCX #### [facility] [address] [place] [address] Dr. Caitlin Martinez Neutrophils/100 WBC (Bld) 62.2 % Normal 43.0-75.0 [facility] Comment on above: Performed By: #### U RCX #### [facility] [address] [place] [address] Dr. Caitlin Martinez Platelet mean volume (Bld) [Entitic vol] 9.0 fL Critically low 9.5-13.5 [facility] Comment on above: Performed By: #### U RCX #### [facility] [address] [place] [address] Dr. Caitlin Martinez PLT 373 103/ul Normal 150-450 [facility] Comment on above: Performed By: #### U RCX #### [facility] [address] [place] [address] Dr. Caitlin Martinez RBC 3.65 106/ul Critically low 4.20-5.40 [facility] Comment on above: Performed By: #### U RCX #### [facility] [address] [place] [address] Dr. Caitlin Martinez WBC 11.3 103/ul Critically high 4.0-11.0 [facility] Comment on above: Performed By: #### U RCX #### [facility] [address] [place] [address] Dr. Caitlin Martinez Covid-19 PCR ([facility])on 01-16 SARS-CoV-2 (COVID-19) RNA JONATAN+probe Ql (Unsp spec) Not detected Normal NOT DETECTED [facility] Comment on [...] for this test is supported by the [place] [employer] and [employer]'s declaration that [...] used). Performed By: #### C BC #### [facility] [address] [place] [address] Dr. Caitlin Martinez DIRECT COOMBSon 02-08-2022 DIRECT EDWINA Negative Normal [facility] [place] Comment on above: Performed By: #### D IRCMB, ABID #### [facility] [address] [place] [address] Dr. Caitlin Martinez DRUG SCREEN RAPID (URINE)on 02-08-2022 AMP Negative Normal NEGATIVE [facility] Comment on above: Performed By: #### C BC #### [facility] [address] [place] [address] Dr. Caitlin Martinez BAR Negative Normal NEGATIVE [facility] Comment on above: Performed By: #### C BC #### [facility] [address] [place] [address] Dr. Caitlin Martinez BUP Negative Normal NEGATIVE [facility] Comment on above: Performed By: #### C BC #### [facility] [address] [place] [address] Dr. Caitlin Martinez BZO Negative Normal NEGATIVE [facility] Comment on above: Performed By: #### C BC #### [facility] [address] [place] [address] Dr. Caitlin Martinez JEANNA Negative Normal NEGATIVE [facility] Comment on above: Performed By: #### C BC #### [facility] [address] [place] [address] Dr. Caitlin Martinez CUT-OFFS SEE BELOW Normal [facility] Comment on above: Result Comment: AMP [...] ng/mL Performed By: #### C BC #### [facility] [address] [place] [address] Dr. Caitlin Martinez DRUG CUT HEADER DRUG CLASS TEST SYSTEM CUT-OFF CONCENTRATIONS ARE FOLLOWS: Normal [facility] Comment on above: Performed By: #### C BC #### [facility] [address] [place] [address] Dr. Caitlin Martinez mAMP Negative Normal NEGATIVE [facility] Comment on above: Performed By: #### C BC #### [facility] [address] [place] [address] Dr. Caitlin Martinez MTD Negative Normal NEGATIVE [facility] Comment on above: Performed By: #### C BC #### [facility] [address] [place] [address] Dr. Caitlin Martinez OPI Negative Normal NEGATIVE [facility] Comment on above: Performed By: #### C BC #### [facility] [address] [place] [address] Dr. Caitlin Martinez OXY Negative Normal NEGATIVE [facility] Comment on above: Performed By: #### C BC #### [facility] [address] [address] [address] Caitlin Martinez PCP Negative Normal NEGATIVE [facility] Comment on above: Performed By: #### C BC #### [facility] [address] [address] [address] Caitlin Martinez PPX Negative Normal NEGATIVE [facility] Comment on above: Performed By: #### C BC #### [facility] [address] [address] [address] Caitlin Martinez TCA Negative Normal NEGATIVE [facility] Comment on above: Performed By: #### C BC #### [facility] [address] [place] [address] Dr. Caitlin Martinez THC Negative Normal NEGATIVE [facility] Comment on above: Performed By: #### C BC #### [facility] [address] [place] [address] Dr. Caitlin Martinez TYPE AND SCREENon 02-08-2022 TYPE AND SCREEN Negative Normal [facility] Comment on above: Performed By: #### I HORACIO #### [facility] [address] [place] [address] Dr. Caitlin Martinez US PREG BIOPHY W [...] DAVID BLACKMON Date: 2022-02-05 16:28 Normal [facility] AMNISUREon 01-25-2022 AMNISURE Negative Normal NEGATIVE [facility] Comment on above: Performed By: #### A MNI #### [facility] [address] [place] [address] Dr. Caitlin Martinez CULTURE URINEon 01-25-2022 CULTURE URINE Culture Observations: No growth Normal [facility] Comment on above: Performed By: #### U RCX #### [facility] [address] [place] [address] Dr. Caitlin Martinez UA (CLEAN/CATCH) ERRAND RUNNER/MICRO I F IND.on 01-25-2022 Bilirubin Ql (U) Negative Normal NEGATIVE [facility] Comment on above: Performed By: #### C VDTBH #### [facility] [address] [place] [address] Dr. Caitlin Martinez Clarity (U) SL CLOUDY Abnormal CLEAR [facility] Comment on above: Performed By: #### C VDTBH #### [facility] [address] [place] [address] Dr. Caitlin Martinez Color (U) LT. YELLOW Normal YELLOW [facility] Comment on above: Performed By: #### C VDTBH #### [facility] [address] [place] [address] Dr. Caitlin Martinez Glucose Ql (U) Negative Normal NEGATIVE [facility] Comment on above: Performed By: #### C VDTBH #### [facility] [address] [place] [address] Dr. Caitlin Martinez Hemoglobin Ql (U) TRACE-INTACT Abnormal NEGATIVE [facility] Comment on above: Performed By: #### C VDTBH #### [facility] [address] [place] [address] Dr. Caitlin Martinez Ketones Ql (U) Negative Normal NEGATIVE [facility] Comment on above: Performed By: #### C VDTBH #### [facility] [address] [place] [address] Dr. Caitlin Martinez LEUKOCYTES TRACE Abnormal NEGATIVE [facility] Comment on above: Performed By: #### C VDTBH #### [facility] [address] [place] [address] Dr. Caitlin Martinez Nitrite Ql (U) Negative Normal NEGATIVE [facility] Comment on above: Performed By: #### C VDTBH #### [facility] [address] [place] [address] Dr. Caitlin Martinez pH (U) 6.5 [pH] Normal 5-9 [facility] Comment on above: Performed By: #### C VDTBH #### [facility] [address] [place] [address] Dr. Caitlin Martinez SPEC GRAVITY 1.020 Normal 1.005-<=1.025 [facility] Comment on above: Performed By: #### C VDTBH #### [facility] [address] [place] [address] Dr. Caitlin Martinez UA PROTEIN Negative Normal NEGATIVE/ TRACE [facility] Comment on above: Performed By: #### C VDTBH #### [facility] [address] [place] [address] Dr. Caitlin Martinez UR MICRO IND INDICATED Normal [facility] Comment on above: Performed By: #### C VDTBH #### [facility] [address] [place] [address] Dr. Caitlin Martinez Urobilinogen Qn (U) 0.2 {Barbara'U}/dL Normal 0.2 - 1. 0 [facility] Comment on above: Performed By: #### C VDTBH #### [facility] [address] [place] [address] Dr. Caitlin Martinez URINE MICROSCOPIC ONLYon BACTERIA MODERATE Abnormal NONE SEEN [facility] Comment on above: Performed By: #### C VDTBH #### [facility] [address] [place] [address] Dr. Caitlin Martinez Bacteria identified Cx Nom (U) INDICATED Normal [facility] Comment on above: Performed By: #### C VDTBH #### [facility] [address] [place] [address] Dr. Caitlin Martinez CAST NONE SEEN Normal NONE SEEN [facility] Comment on above: Performed By: #### C VDTBH #### [facility] [address] [place] [address] Dr. Caitlin Martinez Crystals LM Nom (Urine sed) NONE SEEN Normal NONE SEEN [facility] Comment on above: Performed By: #### C VDTBH #### [facility] [address] [place] [address] Dr. Caitlin Martinez Epithelial cells LM Ql (Urine sed) FEW Abnormal NONE SEEN /RARE [facility] Comment on above: Performed By: #### C VDTBH #### [facility] [address] [place] [address] Dr. Caitlin Martinez MUCOUS TRACE Abnormal NONE SEEN [facility] Comment on above: Performed By: #### C VDTBH #### [facility] [address] [place] [address] Dr. Caitlin Martinez RBC 2-5 Abnormal 0-2 [facility] Comment on above: Performed By: #### C VDTBH #### [facility] [address] [place] [address] Dr. Caitlin Martinez WBC 0-2 Abnormal NONE SEEN [facility] Comment on above: Performed By: #### C VDTBH #### [facility] [address] [place] [address] Dr. Caitlin Martinez AMYLASEon 01-16-2022 Amylase [Catalytic activity/Vol] 49 U/L Normal 25-115 [facility] Comment on above: Performed By: #### C VDTBH #### [facility] [address] [place] [address] Dr. Caitlin Martinez BUNon 01-16-2022 Urea nitrogen [Mass/Vol] 3.0 mg/dL Critically low 7.0-18.0 [facility] Comment on above: Performed By: #### C BC #### [facility] [address] [place] [address] Dr. Caitlin Martinez CBC AUTO DIFFon 01-16-2022 BASO # 0.1 103/ul Normal 0.0-0.1 [facility] Comment on above: Performed By: #### U RCX #### [facility] [address] [place] [address] Dr. Caitlin Martinez Basophils/100 WBC (Bld) 0.6 % Normal 0.2-2.0 [facility] Comment on above: Performed By: #### U RCX #### [facility] [address] [place] [address] Dr. Caitlin Martinez EO # 0.3 103/ul Normal 0.0-0.7 [facility] Comment on above: Performed By: #### U RCX #### [facility] [address] [place] [address] Dr. Caitlin Martinez Eosinophils/100 WBC (Bld) 2.6 % Normal 0.9-7.0 [facility] Comment on above: Performed By: #### U RCX #### [facility] [address] [place] [address] Dr. Caitlin Martinez Erythrocyte distribution width (RBC) [Ratio] 14.4 % Normal 11.0-15.0 [facility] Comment on above: Performed By: #### U RCX #### [facility] [address] [place] [address] Dr. Caitlin Martinez Hematocrit (Bld) [Volume fraction] 28.4 % Critically low 36.0-48.0 [facility] Comment on above: Performed By: #### U RCX #### [facility] [address] [place] [address] Dr. Caitlin Martinez Hemoglobin (Bld) [Mass/Vol] 9.0 g/dL Critically low 12.0-16.0 [facility] Comment on above: Performed By: #### U RCX #### [facility] [address] [place] [address] Dr. Caitlin Martinez IG # 0.11 10e3/ul Critically high 0.00-0.03 [facility] Comment on above: Performed By: #### U RCX #### [facility] [address] [place] [address] Dr. Caitlin Martinez IG % 1.1 % Critically high 0.0-0.5 [facility] Comment on above: Performed By: #### U RCX #### [facility] [address] [place] [address] Dr. Caitlin Martinez LYMPH # 2.2 103/ul Normal 1.2-3.8 [facility] Comment on above: Performed By: #### U RCX #### [facility] [address] [place] [address] Dr. Caitlin Martinez Lymphocytes/100 WBC (Bld) 21.0 % Normal 20.5-60.0 [facility] Comment on above: Performed By: #### U RCX #### [facility] [address] [place] [address] Dr. Caitlin Martinez MANUAL DIFF REQ NO Normal [facility] Comment on above: Performed By: #### U RCX #### [facility] [address] [place] [address] Dr. Caitlin Martinez MCH (RBC) [Entitic mass] 28.2 pg Normal 26.7-34.0 [facility] Comment on above: Performed By: #### U RCX #### [facility] [address] [place] [address] Dr. Caitlin Martinez MCHC (RBC) [Mass/Vol] 31.7 g/dL Normal 29.9-35.2 [facility] Comment on above: Performed By: #### U RCX #### [facility] [address] [place] [address] Dr. Caitlin Martinez MCV (RBC) [Entitic vol] 89.0 fL Normal 81.0-99.0 [facility] Comment on above: Performed By: #### U RCX #### [facility] [address] [place] [address] Dr. Caitlin Martinez MONO # 0.9 103/ul Critically high 0.3-0.8 [facility] Comment on above: Performed By: #### U RCX #### [facility] [address] [place] [address] Dr. Caitlin Martinez Monocytes/100 WBC (Bld) 8.9 % Normal 1.7-12.0 [facility] Comment on above: Performed By: #### U RCX #### [facility] [address] [place] [address] Dr. Caitlin Martinez NEUT # 6.8 103/ul Critically high 1.4-6.5 [facility] Comment on above: Performed By: #### U RCX #### [facility] [address] [place] [address] Dr. Caitlin Martinez Neutrophils/100 WBC (Bld) 65.8 % Normal 43.0-75.0 [facility] Comment on above: Performed By: #### U RCX #### [facility] [address] [place] [address] Dr. Caitlin Martinez Platelet mean volume (Bld) [Entitic vol] 8.6 fL Critically low 9.5-13.5 [facility] Comment on above: Performed By: #### U RCX #### [facility] [address] [place] [address] Dr. Caitlin Martinez PLT 322 103/ul Normal 150-450 [facility] Comment on above: Performed By: #### U RCX #### [facility] [address] [place] [address] Dr. Caitlin Martinez RBC 3.19 106/ul Critically low 4.20-5.40 [facility] Comment on above: Performed By: #### U RCX #### [facility] [address] [place] [address] Dr. Cailtin Martinez WBC 10.3 103/ul Normal 4.0-11.0 [facility] Comment on above: Performed By: #### U RCX #### [facility] [address] [place] [address] Dr. Caitlin Martinez CREATININEon 01-16-2022 Creatinine [Mass/Vol] 0.55 mg/dL Normal 0.55-1.02 [facility] Comment on above: Performed By: #### C VDTBH #### [facility] [address] [place] [address] Dr. Caitlin Martinez EGFR-AF BARBADIAN >60 Normal >=60 [facility] Comment on above: Performed By: #### C VDTBH #### [facility] [address] [place] [address] Dr. Caitlin Martinez EGFR-NON AF BARBADIAN >60 Normal >=60 [facility] Comment on above: Performed By: #### C VDTBH #### [facility] [address] [place] [address] Dr. Caitlin Martinez ELECTROLYTESon 01-16-2022 Anion gap [Moles/Vol] 13.6 mmol/L Normal [facility] Comment on above: Performed By: #### C VDTBH #### [facility] [address] [place] [address] Dr. Caitlin Martinez Chloride [Moles/Vol] 106 mmol/L Normal 98-107 [facility] Comment on above: Performed By: #### C VDTBH #### [facility] [address] [place] [address] Dr. Caitlin Martinez CO2 [Moles/Vol] 22.9 mmol/L Normal 21.0-32.0 [facility] Comment on above: Performed By: #### C VDTBH #### [facility] [address] [place] [address] Dr. Caitlin Martinez Potassium [Moles/Vol] 3.5 mmol/L Normal 3.5-5.1 [facility] Comment on above: Performed By: #### C VDTBH #### [facility] [address] [place] [address] Dr. Caitlin Martinez Sodium [Moles/Vol] 139 mmol/L Normal 136-145 [facility] Comment on above: Performed By: #### C VDTBH #### [facility] [address] [place] [address] Dr. Caitlin Martinez LIPASEon 01-16-2022 Lipase [Catalytic activity/Vol] 66.0 U/L Critically low 73.0-393.0 [facility] Comment on above: Performed By: #### C BC #### [facility] [address] [place] [address] Dr. Caitlin Martinez SGOTon 01-16-2022 AST [Catalytic activity/Vol] 12 U/L Critically low 15-37 [facility] Comment on above: Performed By: #### C VDTBH #### [facility] [address] [place] [address] Dr. Caitlin Martinez SGPTon 01-16-2022 ALT [Catalytic activity/Vol] 9 U/L Critically low 14-59 [facility] Comment on above: Performed By: #### C VDTBH #### [facility] [address] [place] [address] Dr. Caitlin Martinez CBC AUTO DIFFon 01-15-2022 BASO # 0.1 103/ul Normal 0.0-0.1 [facility] Comment on above: Performed By: #### C VDTBH #### [facility] [address] [place] [address] Dr. Caitlin Martinez Basophils/100 WBC (Bld) 0.4 % Normal 0.2-2.0 [facility] Comment on above: Performed By: #### C VDTBH #### [facility] [address] [place] [address] Dr. Caitlin Martinez EO # 0.2 103/ul Normal 0.0-0.7 [facility] Comment on above: Performed By: #### C VDTBH #### [facility] [address] [place] [address] Dr. Caitlin Martinez Eosinophils/100 WBC (Bld) 1.4 % Normal 0.9-7.0 [facility] Comment on above: Performed By: #### C VDTBH #### [facility] [address] [place] [address] Dr. Caitlin Martinez Erythrocyte distribution width (RBC) [Ratio] 14.1 % Normal 11.0-15.0 [facility] Comment on above: Performed By: #### C VDTBH #### [facility] [address] [place] [address] Dr. Caitlin Martinez Hematocrit (Bld) [Volume fraction] 28.4 % Critically low 36.0-48.0 [facility] Comment on above: Performed By: #### C VDTBH #### [facility] [address] [place] [place] [address] Dr. Caitlin Martinez Hemoglobin (Bld) [Mass/Vol] 9.0 g/dL Critically low 12.0-16.0 [facility] Comment on above: Performed By: #### C VDTBH #### [facility] [address] [place] [address] Dr. Caitlin Martinez IG # 0.18 10e3/ul Critically high 0.00-0.03 [facility] Comment on above: Performed By: #### C VDTBH #### [facility] [address] [place] [address] Dr. Caitlin Martinez IG % 1.3 % Critically high 0.0-0.5 [facility] Comment on above: Performed By: #### C VDTBH #### [facility] [address] [place] [address] Dr. Caitlin Martinez LYMPH # 2.4 103/ul Normal 1.2-3.8 [facility] Comment on above: Performed By: #### C VDTBH #### [facility] [address] [place] [address] Dr. Caitlin Martinez Lymphocytes/100 WBC (Bld) 16.8 % Critically low 20.5-60.0 [facility] Comment on above: Performed By: #### C VDTBH #### [facility] [address] [place] [address] Dr. Caitlin Martinez MANUAL DIFF REQ NO Normal [facility] Comment on above: Performed By: #### C VDTBH #### [facility] [address] [place] [address] Dr. Caitlin Martinez MCH (RBC) [Entitic mass] 27.9 pg Normal 26.7-34.0 [facility] Comment on above: Performed By: #### C VDTBH #### [facility] [address] [place] [address] Dr. Caitlin Martinez MCHC (RBC) [Mass/Vol] 31.7 g/dL Normal 29.9-35.2 [facility] Comment on above: Performed By: #### C VDTBH #### [facility] [address] [place] [address] Dr. Caitlin Martinez MCV (RBC) [Entitic vol] 87.9 fL Normal 81.0-99.0 [facility] Comment on above: Performed By: #### C VDTBH #### [facility] [address] [place] [address] Dr. Caitlin Martinez MONO # 0.9 103/ul Critically high 0.3-0.8 [facility] Comment on above: Performed By: #### C VDTBH #### [facility] [address] [place] [address] Dr. Caitlin Martinez Monocytes/100 WBC (Bld) 6.7 % Normal 1.7-12.0 [facility] Comment on above: Performed By: #### C VDTBH #### [facility] [address] [place] [address] Dr. Caitlin Martinez NEUT # 10.3 103/ul Critically high 1.4-6.5 [facility] Comment on above: Performed By: #### C VDTBH #### [facility] [address] [place] [address] Dr. Caitlin Martinez Neutrophils/100 WBC (Bld) 73.4 % Normal 43.0-75.0 [facility] Comment on above: Performed By: #### C VDTBH #### [facility] [address] [place] [address] Dr. Caitlin Martinez Platelet mean volume (Bld) [Entitic vol] 9.0 fL Critically low 9.5-13.5 [facility] Comment on above: Performed By: #### C VDTBH #### [facility] [address] [place] [address] Dr. Caitlin Martinez PLT 318 103/ul Normal 150-450 [facility] Comment on above: Performed By: #### C VDTBH #### [facility] [address] [place] [address] Dr. Caitlin Martinez RBC 3.23 106/ul Critically low 4.20-5.40 [facility] Comment on above: Performed By: #### C VDTBH #### [facility] [address] [place] [address] Dr. Caitlin Martinez WBC 14.0 103/ul Critically high 4.0-11.0 [facility] Comment on above: Performed By: #### C VDTBH #### [facility] [address] [place] [address] ABD/PELVIS WO CONon [...] DAVID BLACKMON Date: 2022-01-15 16:31 Normal [facility] CULTURE URINEon 01-15-2022 CULTURE URINE Culture Observations: LIGHT GROWTH OF MIXED GENITAL COSME. NO POTENTIAL PATHOGENS SEEN. Normal [facility] Comment on above: Performed By: #### U RCX #### [facility] [address] [place], [place] [address] Dr. Caitlin Martinez UA (CLEAN/CATCH) ERRAND RUNNER/MICRO I F IND.on 01-15-2022 Bilirubin Ql (U) Negative Normal NEGATIVE [facility] Comment on above: Performed By: #### C BC #### [facility] [address] [place] [address] [id number] [address] Caitlin Martinez Clarity (U) CLEAR Normal CLEAR [facility] Comment on above: Performed By: #### C BC #### [facility] [address] [place] [address] [address] Caitlin Martinez Color (U) LT. YELLOW Normal YELLOW [facility] Comment on above: Performed By: #### C BC #### [facility] [address] [place] [address] Dr. Caitlin Martinez Glucose Ql (U) Negative Normal NEGATIVE [facility] Comment on above: Performed By: #### C BC #### [facility] [address] [place] [address] Dr. Caitlin Martinez Hemoglobin Ql (U) Negative Normal NEGATIVE [facility] Comment on above: Performed By: #### C BC #### [facility] [address] [place] [address] Dr. Caitlin Martinez Ketones Ql (U) Negative Normal NEGATIVE [facility] Comment on above: Performed By: #### C BC #### [facility] [address] [place] [address] Dr. Caitlin Martinez LEUKOCYTES TRACE Abnormal NEGATIVE [facility] Comment on above: Performed By: #### C BC #### [facility] [address] [place] [address] Dr. Caitlin Martinez Nitrite Ql (U) Negative Normal NEGATIVE [facility] Comment on above: Performed By: #### C BC #### [facility] [address] [place] [address] Dr. Caitlin Martinez pH (U) 7.0 [pH] Normal 5-9 [facility] Comment on above: Performed By: #### C BC #### [facility] [address] [place] [address] Dr. Caitlin Martinez SPEC GRAVITY 1.010 Normal 1.005-<=1.025 [facility] Comment on above: Performed By: #### C BC #### [facility] [address] [place] [address] Dr. Caitlin Martinez UA PROTEIN Negative Normal NEGATIVE/ TRACE [facility] Comment on above: Performed By: #### C BC #### [facility] [address] [place] [address] Dr. Caitlin Martinez UR MICRO IND INDICATED Normal [facility] Comment on above: Performed By: #### C BC #### [facility] [address] [place] [address] Dr. Caitlin Martinez Urobilinogen Qn (U) 0.2 {Barbara'U}/dL Normal 0.2 - 1. 0 [facility] Comment on above: Performed By: #### C BC #### [facility] [address] [place] [address] Dr. Caitlin Martinez URINE MICROSCOPIC ONLYon BACTERIA MODERATE Abnormal NONE SEEN [facility] Comment on above: Performed By: #### C BC #### [facility] [address] [place] [address] Dr. Caitlin Martinez Bacteria identified Cx Nom (U) INDICATED Normal [facility] Comment on above: Performed By: #### C BC #### [facility] [address] [place] [address] Dr. Caitlin Martinez CAST NONE SEEN Normal NONE SEEN [facility] Comment on above: Performed By: #### C BC #### [facility] [address] [place] [address] Dr. Caitlin Martinez Crystals LM Nom (Urine sed) NONE SEEN Normal NONE SEEN [facility] Comment on above: Performed By: #### C BC #### [facility] [address] [place] [address] Dr. Caitlin Martinez Epithelial cells LM Ql (Urine sed) MODERATE Abnormal NONE SEEN /RARE [facility] Comment on above: Performed By: #### C BC #### [facility] [address] [place] [address] Dr. Caitlin Martinez MUCOUS NONE SEEN Normal NONE SEEN [facility] Comment on above: Performed By: #### C BC #### [facility] [address] [place] [address] Dr. Caitlin Martinez RBC NONE SEEN Abnormal 0-2 [facility] Comment on above: Performed By: #### C BC #### [facility] [address] [place] [address] Dr. Caitlin Martinez WBC 2-5 Abnormal NONE SEEN [facility] Comment on above: Performed By: #### C BC #### [facility] [address] [place] [address] [address] Caitlin Martinez US APPENDIXon 01-15-2022 US [...] by: DAVID BLACKMON Date: 2022-01-15 14:14 Normal [facility] US PREG GROWTHon 01-15-2022 US PREG [...] by: DAVID BLACKMON Date: 2022-01-15 10:59 Normal [facility] US PREG PLACENTAon US PREG PLACENTA [...] or subchorionic hematoma. Electronically authenticated by: DAVID FINLEYEBJESS Date: 2022-01-15 10:57 Normal [facility] UA (CLEAN/CATCH) ERRAND RUNNER/MICRO I F IND.on 12-29-2021 Bilirubin Ql (U) Negative Normal NEGATIVE [facility] Comment on above: Performed By: #### C BC #### [facility] [address] [place] [address] Dr. Caitlin Martinez Clarity (U) CLEAR Normal CLEAR [facility] Comment on above: Performed By: #### C BC #### [facility] [address] [place] [address] Dr. Caitlin Martinez Color (U) LT. YELLOW Normal YELLOW [facility] Comment on above: Performed By: #### C BC #### [facility] [address] [place] [address] Dr. Caitlin Martinez Glucose Ql (U) Negative Normal NEGATIVE [facility] Comment on above: Performed By: #### C BC #### [facility] [address] [place] [address] Dr. Caitlin Martinez Hemoglobin Ql (U) Negative Normal NEGATIVE [facility] Comment on above: Performed By: #### C BC #### [facility] [address] [place] [address] Dr. Caitlin Martinez Ketones Ql (U) Negative Normal NEGATIVE [facility] Comment on above: Performed By: #### C BC #### [facility] [address] [place] [address] Dr. Caitlin Martinez LEUKOCYTES Negative Normal NEGATIVE [facility] Comment on above: Performed By: #### C BC #### [facility] [address] [place] [address] Dr. Caitlin Martinez Nitrite Ql (U) Negative Normal NEGATIVE [facility] Comment on above: Performed By: #### C BC #### [facility] [address] [place] [address] Dr. Caitlin Martinez pH (U) 6.5 [pH] Normal 5-9 [facility] Comment on above: Performed By: #### C BC #### [facility] [address] [place] [address] Dr. Caitlin Martinez SPEC GRAVITY 1.020 Normal 1.005-<=1.025 [facility] Comment on above: Performed By: #### C BC #### [facility] [address] [place] [address] Dr. Caitlin Martinez UA PROTEIN Negative Normal NEGATIVE/ TRACE [facility] Comment on above: Performed By: #### C BC #### [facility] [address] [place] [address] Dr. Caitlin Martinez UR MICRO IND NOT INDICATED Normal [facility] Comment on above: Performed By: #### C BC #### [facility] [address] [place] [address] Dr. Caitlin Martinez Urobilinogen Qn (U) 1.0 {Barbara'U}/dL Normal 0.2 - 1. 0 [facility] Comment on above: Performed By: #### C BC #### [facility] [address] [place] [address] Dr. Caitlin Martinez US PREG CERVICAL LENGTHon [...] KIRK OATES Date: 2021-12-29 15:53 Normal [facility] UA (CLEAN/CATCH) ERRAND RUNNER/MICRO I F IND.on 12-18-2021 Bilirubin Ql (U) Negative Normal NEGATIVE [facility] Comment on above: Performed By: #### C BC #### [facility] [address] [place] [address] Dr. Caitlin Martinez Clarity (U) CLEAR Normal CLEAR [facility] Comment on above: Performed By: #### C BC #### [facility] [address] [place] [address] Dr. Caitlin Martinez Color (U) YELLOW Normal YELLOW [facility] Comment on above: Performed By: #### C BC #### [facility] [address] [place] [address] Dr. Caitlin Martinez Glucose Ql (U) Negative Normal NEGATIVE [facility] Comment on above: Performed By: #### C BC #### [facility] [address] [place] [address] Dr. Caitlin Martinez Hemoglobin Ql (U) Negative Normal NEGATIVE [facility] Comment on above: Performed By: #### C BC #### [facility] [address] [place] [address] Dr. Caitlin Martinez Ketones Ql (U) TRACE Abnormal NEGATIVE [facility] Comment on above: Performed By: #### C BC #### [facility] [address] [place] [address] Dr. Caitlin Martinez LEUKOCYTES Negative Normal NEGATIVE [facility] Comment on above: Performed By: #### C BC #### [facility] [address] [place] [address] Dr. Caitlin Martinez Nitrite Ql (U) Negative Normal NEGATIVE [facility] Comment on above: Performed By: #### C BC #### [facility] [address] [place] [address] Dr. Caitlin Martinez pH (U) 6.0 [pH] Normal 5-9 [facility] Comment on above: Performed By: #### C BC #### [facility] [address] [place] [address] Dr. Caitlin Martinez SPEC GRAVITY 1.025 Normal 1.005-<=1.025 [facility] Comment on above: Performed By: #### C BC #### [facility] [address] [place] [address] Dr. Caitlin Martinez UA PROTEIN Negative Normal NEGATIVE/ TRACE [facility] Comment on above: Performed By: #### C BC #### [facility] [address] [place] [address] Dr. Caitlin Martinez UR MICRO IND NOT INDICATED Normal [facility] Comment on above: Performed By: #### C BC #### [facility] [address] [place] [address] Dr. Caitlin Martinez Urobilinogen Qn (U) 4 {Barbara'U}/dL Abnormal 0.2 - 1.0 [facility] Comment on above: Performed By: #### C BC #### [facility] [address] [place] [address] Dr. Caitlin Martinez RHOGAMon 11-28-2021 RHOGAM Status Information Issued Quantity 1 Product ID Rh Immune Globulin Lot Number [id number] Issue Date/Time [id number] Normal [facility] Comment on above: Performed By: #### I HORACIO #### [facility] [address] [place] [address] Dr. Caitlin Martinez TYPE AND SCREENon 11-27-2021 TYPE AND SCREEN Negative Normal [facility] Comment on above: Performed By: #### T NS #### [facility] [address] [place] [address] Dr. Caitlin Martinez CULTURE URINEon 11-23-2021 CULTURE URINE Culture Observations: No growth Normal [facility] Comment on above: Performed By: #### I HORACIO #### [facility] [address] [place] [address] Dr. Caitlin Martinez UA (CLEAN/CATCH) ERRAND RUNNER/MICRO I F IND.on 11-23-2021 Bilirubin Ql (U) Negative Normal NEGATIVE [facility] Comment on above: Performed By: #### U RCX #### [facility] [address] [place] [address] Dr. Caitlin Martinez Clarity (U) CLEAR Normal CLEAR [facility] Comment on above: Performed By: #### U RCX #### [facility] [address] [place] [address] Dr. Caitlin Martinez Color (U) LT. YELLOW Normal YELLOW [facility] Comment on above: Performed By: #### U RCX #### [facility] [address] [place] [address] Dr. Caitlin Martinez Glucose Ql (U) Negative Normal NEGATIVE [facility] Comment on above: Performed By: #### U RCX #### [facility] [address] [place] [address] Dr. Caitlin Martinez Hemoglobin Ql (U) Negative Normal NEGATIVE [facility] Comment on above: Performed By: #### U RCX #### [facility] [address] [address] [address] Caitlin Martinez Ketones Ql (U) Negative Normal NEGATIVE [facility] Comment on above: Performed By: #### U RCX #### [facility] [address] [place] [address] Dr. Caitlin Martinez LEUKOCYTES SMALL Abnormal NEGATIVE [facility] Comment on above: Performed By: #### U RCX #### [facility] [address] [address] [address] Caitlin Martinez Nitrite Ql (U) Negative Normal NEGATIVE [facility] Comment on above: Performed By: #### U RCX #### [facility] [address] [place] [address] Dr. Caitlin Martinez pH (U) 6.5 [pH] Normal 5-9 [facility] Comment on above: Performed By: #### U RCX #### [facility] [address] [place] [address] Dr. Caitlin Martinez SPEC GRAVITY 1.010 Normal 1.005-<=1.025 [facility] Comment on above: Performed By: #### U RCX #### [facility] [address] [place] [address] Dr. Caitlin Martinez UA PROTEIN Negative Normal NEGATIVE/ TRACE [facility] Comment on above: Performed By: #### U RCX #### [facility] [address] [place] [address] [address] Caitlin Martinez UR MICRO IND INDICATED Normal [facility] Comment on above: Performed By: #### U RCX #### [facility] [address] [place] [address] Dr. Caitlin Martinez Urobilinogen Qn (U) 0.2 {Barbara'U}/dL Normal 0.2 - 1. 0 [facility] Comment on above: Performed By: #### U RCX #### [facility] [address] [place] [address] Dr. Caitlin Martinez URINE MICROSCOPIC ONLYon BACTERIA TRACE Abnormal NONE SEEN [facility] Comment on above: Performed By: #### U RCX #### [facility] [address] [place] [address] Dr. Caitlin Martinez Bacteria identified Cx Nom (U) INDICATED Normal [facility] Comment on above: Performed By: #### U RCX #### [facility] [address] [place] [address] Dr. Caitlin Martinez CAST SEEN Abnormal NONE SEEN [facility] Comment on above: Performed By: #### U RCX #### [facility] [address] [place] [address] Dr. Caitlin Martinez Crystals LM Nom (Urine sed) SEEN Abnormal NONE SEEN [facility] Comment on above: Performed By: #### U RCX #### [facility] [address] [place] [address] Dr. Caitlin Martinez Epithelial cells LM Ql (Urine sed) RARE Normal NONE SEEN /RARE [facility] Comment on above: Performed By: #### U RCX #### [facility] [address] [place] [address] Dr. Caitlin Martinez MUCOUS TRACE Abnormal NONE SEEN [facility] Comment on above: Performed By: #### U RCX #### [facility] [address] [place] [address] Dr. Caitlin Martinez RBC 0-2 Normal 0-2 [facility] Comment on above: Performed By: #### U RCX #### [facility] [address] [place] [address] Dr. Caitlin Martinez WBC 2-5 Abnormal NONE SEEN [facility] Comment on above: Performed By: #### U RCX #### [facility] [address] [place] [address] Dr. Caitlin Martinez GLUCOSE - 1HRon 11-06-2021 Glucose [Mass/Vol] 131 mg/dL Critically high 74-106 T [facility] Comment on above: Performed By: #### I HORACIO #### [facility] [address] [place] [address] Dr. Caitlin Martinez HEMOGRAM AND PLATELon 2021 Hematocrit (Bld) [Volume fraction] 34.2 % Critically low 36.0-48.0 [facility] Comment on above: Performed By: #### C BC #### [facility] [address] [place] [address] Dr. Caitlin Martinez Hemoglobin (Bld) [Mass/Vol] 11.3 g/dL Critically low 12.0-16.0 [facility] Comment on above: Performed By: #### C BC #### [facility] [address] [place] [address] Dr. Caitlin Martinez MCH (RBC) [Entitic mass] 31.7 pg Normal 26.7-34.0 [facility] Comment on above: Performed By: #### C BC #### [facility] [address] [place] [address] Dr. Caitlin Martinez MCHC (RBC) [Mass/Vol] 33.0 g/dL Normal 29.9-35.2 [facility] Comment on above: Performed By: #### C BC #### [facility] [address] [place] [address] Dr. Caitlin Martinez MCV (RBC) [Entitic vol] 96.1 fL Normal 81.0-99.0 [facility] Comment on above: Performed By: #### C BC #### [facility] [address] [place] [address] Dr. Caitlin Martinez PLT 372 103/ul Normal 150-450 [facility] Comment on above: Performed By: #### C BC #### [facility] [address] [place] [address] Dr. Caitlin Martinez RBC 3.56 106/ul Critically low 4.20-5.40 [facility] Comment on above: Performed By: #### C BC #### [facility] [address] [place] [address] Dr. Caitlin Martinez WBC 10.1 103/ul Normal 4.0-11.0 [facility] Comment on above: Performed By: #### C BC #### [facility] [address] [place] [address] Dr. Caitlin Martinez CHLAMYDIA/GONOCOCCUS JONATAN (SW AB/URINE/PAPon 10-31-2021 Chlamydia trachomatis, JONATAN Negative Normal Negative [facility] Comment on above: Performed By: #### C BC #### [facility] [address] [place] [address] Dr. Caitlin Martinez Neisseria gonorrhoeae, JONATAN Negative Normal Negative [facility] Comment on above: Performed By: #### C BC #### [facility] [address] [address] [address] Caitlin Martinez VAGINITIS/VAGINOSIS DNA PROB Paramjit 10-29-2021 Shannon species Negative Normal Negative [facility] Comment on above: Performed By: #### U RCX #### [facility] [address] [place] [address] Dr. Caitlin Martinez Gardnerella vaginalis Negative Normal Negative [facility] [facility] Comment on above: Performed By: #### U RCX #### [facility] [address] [place] [address] Dr. Caitlin Martinez Trichomonas vaginalis Negative Normal Negative [facility] Comment on above: Performed By: #### U RCX #### [facility] [address] [place] [address] Dr. Caitlin Martinez US PREG INCOMPLETE ANATOMYon [...] DAVID BLACKMON Date: 2021-10-26 12:05 Normal [facility] CBC W MANUAL DIFFon 10-25-19 22 ATYPICAL LYMPH # Normal The [facility] Comment on above: Performed By: #### U RCX #### [facility] [address] [place] [address] Dr. Caitlin Martinez ATYPICAL LYMPH % Normal [facility] Comment on above: Performed By: #### U RCX #### [facility] [address] [place] [address] Dr. Caitlin Martinez BAND # 0.1 103/ul Normal 0.0-0.3 [facility] Comment on above: Performed By: #### U RCX #### [facility] [address] [place] [address] Dr. Caitlin Martinez BAND % 1 % Normal 0-5 [facility] Comment on above: Performed By: #### U RCX #### [facility] [address] [place] [address] Dr. Caitlin Martinez BASOM # 0.00 103/ul Normal 0.00-0.10 [facility] Comment on above: Performed By: #### U RCX #### [facility] [address] [place] [address] Dr. Caitlin Martinez BASOM % 0.0 % Critically low 0.2-2.0 The [facility] Comment on above: Performed By: #### U RCX #### [facility] [address] [place] [address] Dr. Caitlin Martinez BLAST # Normal [facility] Comment on above: Performed By: #### U RCX #### [facility] [address] [place] [address] Dr. Caitlin Martinez BLAST % Normal [facility] Comment on above: Performed By: #### U RCX #### [facility] [address] [place] [address] Dr. Caitlin Martinez CORRECTED WBC Normal 4.0-11.0 The [place] Comment on above: Performed By: #### U RCX #### [facility] [address] [place] [address] Dr. Caitlin Martinez EOS # 0.12 103/ul Normal 0.00-0.70 [facility] Comment on above: Performed By: #### U RCX #### [facility] [address] [place] [address] Dr. Caitlin Martinez EOS% 1.0 % Normal 0.9-7.0 [facility] Comment on above: Performed By: #### U RCX #### [facility] [address] [address] [address] Caitlin Martinez HCT 31.5 % Critically low 36.0-48.0 [facility] Comment on above: Performed By: #### U RCX #### [facility] [address] [address] [address] Caitlin Martinez HGB 10.5 g/dl Critically low 12.0-16.0 [facility] Comment on above: Performed By: #### U RCX #### [facility] [address] [address] [address] Caitlin Martinez LYMPHM # 0.37 103/ul Critically low 1.20-3.80 [facility] Comment on above: Performed By: #### U RCX #### [facility] [address] [place] [address] Dr. Caitlin Martinez LYMPHM% 3.0 % Critically low 20.5-60.0 [facility] Comment on above: Performed By: #### U RCX #### [facility] [address] [address] [address] Caitlin Martinez MCH 31.8 pg Normal 26.7-34.0 [facility] Comment on above: Performed By: #### U RCX #### [facility] [address] [address] [address] Caitlin Martinez MCHC 33.3 g/dl Normal 29.9-35.2 [facility] Comment on above: Performed By: #### U RCX #### [facility] [address] [address] [address] Caitlin Martinez MCV 95.5 fL Normal 81.0-99.0 [facility] Comment on above: Performed By: #### U RCX #### [facility] [address] [address] [address] Caitlin Martinez METAMYELOCYTE # Normal [facility] Comment on above: Performed By: #### U RCX #### [facility] [address] [place] [address] Dr. Caitlin Martinez METAMYELOCYTE % Normal [facility] Comment on above: Performed By: #### U RCX #### [facility] [address] [address] [address] Caitlin Martinez MONOM# 0.73 103/ul Normal 0.30-0.80 [facility] Comment on above: Performed By: #### U RCX #### [facility] [address] [address] [address] Caitlin Martinez MONOM% 6.0 % Normal 1.7-12.0 [facility] Comment on above: Performed By: #### U RCX #### [facility] [address] [address] [address] Caitlin Martinez MPV 9.5 fL Normal 9.5-13.5 [facility] Comment on above: Performed By: #### U RCX #### [facility] [address] [place] [address] Dr. Caitlin Martinez MYELOCYTE # Normal [facility] Comment on above: Performed By: #### U RCX #### [facility] [address] [address] [address] Caitlin Martinez MYELOCYTE % Normal [facility] Comment on above: Performed By: #### U RCX #### [facility] [address] [place] [address] Dr. Caitlin Martinez NRBC Normal [facility] Comment on above: Performed By: #### U RCX #### [facility] [address] [address] [address] Caitlin Martinez PLT 275 103/ul Normal 150-450 [facility] Comment on above: Performed By: #### U RCX #### [facility] [address] [address] [address] Caitlin Martinez RBC 3.30 106/ul Critically low 4.20-5.40 [facility] Comment on above: Performed By: #### U RCX #### [facility] [address] [address] [address] Caitlin Martinez RDW 13.6 % Normal 11.0-15.0 [facility] Comment on above: Performed By: #### U RCX #### [facility] [address] [address] [address] Caitlin Martinez SEG # 10.86 103/ul Critically high 1.40-6.50 [facility] Comment on above: Performed By: #### U RCX #### [facility] [address] [address] [address] Caitlin Martinez SEG % 89.0 % Critically high 43.0-75.0 [facility] Comment on above: Performed By: #### U RCX #### [facility] [address] [address] [address] Caitlin Martinez WBC 12.2 103/ul Critically high 4.0-11.0 [facility] Comment on above: Performed By: #### U RCX #### [facility] [address] [place] [address] Dr. Caitlin Martinez ER URINE PROFILEon 2 Bilirubin Ql (U) Negative Normal NEGATIVE [facility] Comment on above: Performed By: #### C VDTBH #### [facility] [address] [address] [address] Caitlin Martinez Clarity (U) SL CLOUDY Abnormal CLEAR [facility] Comment on above: Performed By: #### C VDTBH #### [facility] [address] [place] [address] Dr. Caitlin Martinez Color (U) YELLOW Normal YELLOW [facility] Comment on above: Performed By: #### C VDTBH #### [facility] [address] [place] [address] Dr. Caitlin PENNNadine A micrscopic examination will be performed if indicated. Normal [facility] Comment on above: Performed By: #### C VDTBH #### [facility] [address] [place] [address] Dr. Caitlin Martinez Glucose Ql (U) Negative Normal NEGATIVE [facility] Comment on above: Performed By: #### C VDTBH #### [facility] [address] [place] [address] Dr. Caitlin Martinez Hemoglobin Ql (U) Negative Normal NEGATIVE [facility] Comment on above: Performed By: #### C VDTBH #### [facility] [address] [place] [address] Dr. Caitlin Martinez Ketones Ql (U) >=80 Abnormal NEGATIVE [facility] Comment on above: Performed By: #### C VDTBH #### [facility] [address] [place] [address] Dr. Caitlin Martinez LEUKOCYTES Negative Normal NEGATIVE [facility] Comment on above: Performed By: #### C VDTBH #### [facility] [address] [place] [address] Dr. Caitlin Martinez Nitrite Ql (U) Negative Normal NEGATIVE [facility] Comment on above: Performed By: #### C VDTBH #### [facility] [address] [place] [address] Dr. Caitlin Martinez pH (U) 6.0 [pH] Normal 5-9 [facility] Comment on above: Performed By: #### C VDTBH #### [facility] [address] [place] [address] Dr. Caitlin Martinez SPEC GRAVITY 1.020 Normal 1.005-<=1.025 [facility] Comment on above: Performed By: #### C VDTBH #### [facility] [address] [place] [address] Dr. Caitlin Martinez UA PROTEIN Negative Normal NEGATIVE/ TRACE [facility] Comment on above: Performed By: #### C VDTBH #### [facility] [address] [place] [address] Dr. Caitlin Martinez UR MICRO IND NOT INDICATED Normal [facility] Comment on above: Performed By: #### C VDTBH #### [facility] [address] [place] [address] Dr. Caitlin Martinez Urobilinogen Qn (U) 1.0 {Barbara'U}/dL Normal 0.2 - 1. 0 [facility] Comment on above: Performed By: #### C VDTBH #### [facility] [address] [place] [address] Dr. Caitlin Martinez INFLUENZA A AND B AGon 10-24 INFLUBNEG SEE BELOW Normal [facility] Comment on above: Result Comment: Nega tive for Flu B protein antigen. Infection due to Flu B cannot be ruled out. Flu B antigen in the sample may be below the detection limit of the test. Performed By: #### C VDTBH #### [facility] [address] [place] [address] Dr. Caitlin Martinez INFLUENZA A AG Positive Abnormal NEGATIVE SEE COMMENT [facility] Comment on above: Performed By: #### C VDTBH #### [facility] [address] [place] [address] Dr. Caitlin Martinez INFLUENZA B AG Negative Normal NEGATIVE SEE COMMENT [facility] Comment on above: Performed By: #### C VDTBH #### [facility] [address] [place] [address] Dr. Caitlin Martinez INFLUPOS SEE BELOW Normal [facility] Comment on above: Result Comment: NOTE : Live attenuated influenzae vaccine viruses can cause a positive result for a rapid influenza diagnostic test if administered up to 7 days prior to rapid testing. Performed By: #### C VDTBH #### [facility] [address] [place] [address] Dr. Caitlin Martinez INTERNAL CONTROLS Within Normal Limits Normal Wi thin Normal Limits [facility] Comment on above: Performed By: #### C VDTBH #### [facility] [address] [place] [address] Dr. Caitlin Martinez PROF CHEM 8 (BAS METB)on Anion gap [Moles/Vol] 14.4 mmol/L Normal [facility] Comment on above: Performed By: #### D IRCMB, ABID #### [facility] [address] [place] [address] Dr. Caitlin Martinez Calcium [Mass/Vol] 8.4 mg/dL Critically low 8.5-10.1 Th e [facility] Comment on above: Performed By: #### D IRCMB, ABID #### [facility] [address] [place], [place] [id number] Dr. Caitlin Martinez Chloride [Moles/Vol] 101 mmol/L Normal 98-107 [facility] Comment on above: Performed By: #### D IRCMB, ABID #### [facility] [address] [address] [address] Caitlin Martinez CO2 [Moles/Vol] 19.7 mmol/L Critically low 21.0-32.0 [facility] Comment on above: Performed By: #### D IRCMB, ABID #### [facility] [address] [address] [address] Caitlin Martinez Creatinine [Mass/Vol] 0.55 mg/dL Normal 0.55-1.02 [facility] Comment on above: Performed By: #### D IRCMB, ABID #### [facility] [address] [place] [address] Dr. Caitlin Martinez EGFR-AF BARBADIAN >60 Normal >=60 [facility] Comment on above: Performed By: #### D IRCMB, ABID #### [facility] [address] [place] [address] Dr. Caitlin Martinez EGFR-NON AF BARBADIAN >60 Normal >=60 [facility] Comment on above: Performed By: #### D IRCMB, ABID #### [facility] [address] [place] [address] Dr. Caitlin Martinez Glucose [Mass/Vol] 91 mg/dL Normal 74-106 [facility] Comment on above: Performed By: #### D IRCMB, ABID #### [facility] [address] [place] [address] Dr. Caitlin Martinez Potassium [Moles/Vol] 3.1 mmol/L Critically low 3.5-5.1 [facility] Comment on above: Performed By: #### D IRCMB, ABID #### [facility] [address] [address] [address] Caitlin Martinez Sodium [Moles/Vol] 132 mmol/L Critically low 136-145 [facility] Comment on above: Performed By: #### D IRCMB, ABID #### [facility] [address] [place], [place] [address] Dr. Caitlin Martinez Urea nitrogen [Mass/Vol] 7.0 mg/dL Normal 7.0-18.0 [facility] Comment on above: Performed By: #### D IRCMB, ABID #### [facility] [address] [place], [place] [address] Dr. Caitlin Martinez Urea nitrogen/Creatinine [Mass ratio] 12.7 mg/mg Normal [facility] Comment on above: Performed By: #### D IRCMB, ABID #### [facility] [address] [place], [place] [address] Dr. Caitlin Martinez US PREG ANATOMY SINGLEon [...] by: DAVID BLACKMON Date: 2021-09-28 09:17 Normal [facility] CHEMISTRYOrdered By: SYSTEM SYSTEM on 06-21-2021 [place] [address] m[IU]/mL High 1 - 3 mIU/mL [facility] Remisol XR LUMBAR SPINE 2-3 [...] gas pattern is nonobstructive. There is a rjmcxtgq-xq-umjwi amount of stool burden. IMPRESSION: No malalignment. No acute compression deformity. Jmmzkwfm-og-bcpok amount of stool burden. [employer] Workstation ID: [id number] Dictated by: LUBA GARCÍA on [facility] Mar 05, 2020 4:09:51 PM EDT Transcribed by: KELVIN GUADALUPE on [facility] Mar 05, 2020 4:17:18 PM EDT Finalized by: LUBA GARCÍA on [facility] Mar 05, 2020 7:52:11 PM EDT Normal [facility] Comment on above: Order Comment: Injur y/Trauma or Illness?:Illness/Other How long have you had these symptoms (acute/chronic)?:Chronic Reason for exam?:low back pain History of cancer?:n Surgeries, chemotherapy, or radiation?:n Type of Exam?:Initial Additional signs and symptoms?:fibromyalgia XR Lumbar Spine 2-3 Views (S tandard)on 03-05-2020 No malalignment. No acute compression deformity. Qhnqgjbs-cp-kkmqp amount of stool burden. [employer] Workstation ID: [id number] EXAMINATION: XR LUMBAR SPINE 2-3 [...] gas pattern is nonobstructive. There is a twmoynfc-vd-nfysh amount of stool burden. [facility] Interface, Rad In Vanessa Speechq - 03/05/2020 7:55 PM EDT EXAMINATION: [...] gas pattern is nonobstructive. There is a toclxsbo-ki-fsomx amount of stool burden. IMPRESSION: No malalignment. No acute compression deformity. Oawfezhk-ir-wrhhg amount of stool burden. [employer] Workstation ID: [id number] [facility] CNOVon 10-28-2018 CNOV Office Visit (VASSMN) MICHELLE GODINEZ ([id number]) 1995 F Date Time Provider Department 10/28/18 12:00 PM YOAN RODRIGUEZ During your visit today, we recorded the following information about you: Temperature Pulse Respiration Blood pressure 98.8 degrees 101/minute 16/minute 116/64 Weight Height 59 kg 1.626 m Yoan Rodriguez MD 10/29/2018 3:03 PM Signed VASCULAR SURGERY INITIAL CONSULT SERVICE DATE: 10/28/2018 SERVICE TIME: 12:44 PM PRIMARY CARE PHYSICIAN: Rebecca Lange MD REFERRING PROVIDER: Rebecca Lange MD [address] [facility] [phone] Consult requested for an opinion regarding the evaluation and treatment of the above. My final impression and recommendations will be communicated back to the requesting physician by way of the shared medical record or letter via US mail. CHIEF COMPLAINT/HISTORY OF PRESENT ILLNESS: Chief Complaint: right carotid stenosis History of Present Illness: Michelle Godinez is a 23 year old right [...] disease. No history of neck trauma. PAST MEDICAL/SURGICAL/FAM ALLI/SOCIAL HISTORY No past medical history on file. [...] file Social History Narrative Not on file MEDICATIONS/ALLERGIE S Current Outpatient Medications: VITAMIN PLUS LOW IRON 27 mg iron- 1 mg tab Take 1 tablet by mouth once daily. Disp: Rfl: 11 No current facility-administere d medications for this visit. ALLERGIES No Known [...] or heat intolerance, polyuria, polydipsia and goiter Hematology/Lymphatic : Negative for prolonged bleeding, bruising easily or [...] up needed unless new issues arise SIGNATURE: Yoan Rodriguez MD PATIENT NAME: Michelle Godinez DATE: October 28, 2018 TIME: 12:44 PM Referring Provider: REBECCA LANGE [[id number]] Allergies As of Date: 10/28/2018 (No Known [...] and Disposition History Recorded Encounter Status:Closed by YOAN RODRIGUEZ MD on 10/29/18 Normal [facility] PROGRESSon 10-28-2018 Protein mass conc HNO ID: [id number] Author: Yoan Rodriguez Service: ? Author Type: Physician Type: Progress Notes Filed: 10/29/2018 3:03 PM Note Text: VASCULAR SURGERY INITIAL CONSULT SERVICE DATE: 10/28/2018 SERVICE TIME: 12:44 PM PRIMARY CARE PHYSICIAN: Rebecca Lange MD REFERRING PROVIDER: Rebecca Lange MD [address] [facility] [phone] Consult requested for an opinion regarding the evaluation and treatment of the above. My final impression and recommendations will be communicated back to the requesting physician by way of the shared medical record or letter via US mail. CHIEF COMPLAINT/HISTORY OF PRESENT ILLNESS: Chief Complaint: right carotid stenosis History of Present Illness: Michelle Godinez is a 23 year old right [...] disease. No history of neck trauma. PAST MEDICAL/SURGICAL/FAM ALLI/SOCIAL HISTORY No past medical history on file. [...] file Social History Narrative Not on file MEDICATIONS/ALLERGIE S Current Outpatient Medications: VITAMIN PLUS LOW IRON 27 mg iron- 1 mg tab Take 1 tablet by mouth once daily. Disp: Rfl: 11 No current facility-administere d medications for this visit. ALLERGIES No Known [...] or heat intolerance, polyuria, polydipsia and goiter Hematology/Lymphatic : Negative for prolonged bleeding, bruising easily or [...] up needed unless new issues arise SIGNATURE: Yoan Rodriguez MD PATIENT NAME: Michelle Godinez DATE: October 28, 2018 TIME: 12:44 PM Normal [facility] Vital Signs Date Time Vital Sign Value Performing Clinician Facility 05-07-2024 14:16-0500 Blood Pressure Location LEYDIKYLEE JEFFERS [facility] 05-07-2024 14:16-0500 Diastolic blood pressure 82 mm[Hg] LEYDI JEFFERS [facility] 05-07-2024 14:16-0500 Heart rate 96 /min LEYDI JEFFERS [facility] 05-07-2024 14:16-0500 Systolic blood pressure 134 mm[Hg] LEYDI JEFFERS [facility] 04-21-2024 14:26-0500 Body mass index (BMI) [Ratio] 32.62 kg/m2 Edward Justen DO Work Phone: [facility] 04-21-2024 14:26-0500 Body weight 83.52 kg Edward Justen DO Work Phone: [facility] 04-21-2024 14:26-0500 Diastolic blood pressure 64 mm[Hg] Edward Justen DO Work Phone: [facility] 04-21-2024 14:26-0500 Systolic blood pressure 104 mm[Hg] Edward Justen DO Work Phone: [facility] 03-23-2024 11:38-0400 Body mass index (BMI) [Ratio] 32.24 kg/m2 Betsy BUCHANAN Work Phone: [facility] 03-23-2024 11:38-0400 Body weight 82.56 kg Betsy BUCHANAN Work Phone: [facility] 03-23-2024 11:38-0400 Diastolic blood pressure 64 mm[Hg] Betsy BUCHANAN Work Phone: [facility] 03-23-2024 11:38-0400 Systolic blood pressure 114 mm[Hg] Betsy BUCHANAN Work Phone: [facility] 03-02-2024 10:24-0400 Body height 160 cm Janie Theodore DO Work Phone: [facility] 03-02-2024 10:24-0400 Body mass index (BMI) [Ratio] 34.19 kg/m2 Janie Theodore DO Work Phone: [facility] 03-02-2024 10:24-0400 Body weight 87.54 kg Janie Theodore DO Work Phone: [facility] 03-02-2024 10:24-0400 Diastolic blood pressure 68 mm[Hg] Janie Theodore DO Work Phone: [facility] 03-02-2024 10:24-0400 Heart rate 74 /min Janie Theodore DO Work Phone: [facility] 03-02-2024 10:24-0400 Respiratory rate 12 /min Janie Theodore DO Work Phone: [facility] 03-02-2024 10:24-0400 SaO2% (BldA) [Mass fraction] 99 % Janie Theodore DO Work Phone: [facility] 03-02-2024 10:24-0400 Systolic blood pressure 118 mm[Hg] Janie Theodore DO Work Phone: [facility] 11-07-2023 13:01-0400 Body weight 76.77 kg Mitul Rdz MD Work Phone: [facility] 11-07-2023 13:01-0400 Diastolic blood pressure 53 mm[Hg] Mitul Rdz MD Work Phone: [facility] 11-07-2023 13:01-0400 Heart rate 66 /min Mitul Rdz MD Work Phone: [facility] 11-07-2023 13:01-0400 Systolic blood pressure 107 mm[Hg] Mitul Rdz MD Work Phone: [facility] 07-19-2023 09:31-0500 Body mass index (BMI) [Ratio] 26.79 kg/m2 [facility] Nurse [facility] 07-19-2023 09:31-0500 Body weight 73.03 kg Noms Nurse [facility] 07-19-2023 09:31-0500 Diastolic blood pressure 72 mm[Hg] [facility] Nurse [facility] 07-19-2023 09:31-0500 Systolic blood pressure 118 mm[Hg] [facility] Nurse [facility] Encounters Encounter Date Encounter Type Care Provider Facility Start: 05-28-2024 End: 05-28-2024 Office outpatient visit 15 minutes Betsy BUCHANAN Work Phone: [facility] Comment on above: Yeast infection Start: 05-28-2024 End: 05-28-2024 ambulatory BETSY GOODWIN Not Available Start: 05-28-2024 End: 05-28-2024 Bamboo flowsheet Betsy BUCHANAN Work Phone: [facility] Start: 05-28-2024 End: 05-30-2024 Bamboo flowsheet Betsy BUCHANAN Work Phone: [facility] Start: 05-28-2024 End: 05-30-2024 External Result Encounter Betsy BUCHANAN Work Phone: [facility] External Department Unsolicited Start: 05-07-2024 End: 05-07-2024 ambulatory LEYDI JEFFERS Facility:[facility] Start: 05-07-2024 End: 05-07-2024 Patient encounter procedure LEYDI JEFFERS [facility] Start: 04-24-2024 ambulatory LEYDI JEFFERS Facility :[facility] Start: 04-21-2024 End: 04-21-2024 Bamboo flowsheet Edward Justen DO Work Phone: [facility] Start: 04-21-2024 End: 04-21-2024 Bamboo flowsheet Edward Justen DO Work Phone: [facility] Start: 04-21-2024 End: 04-21-2024 ambulatory EDWARD JUSTEN Not Available Start: 04-21-2024 End: 04-21-2024 Office outpatient visit 15 minutes Edward Campuzano DO Work Phone: [facility] Comment on above: Yeast infection; Encounter for fertility planning; Recurrent UTI Start: 04-16-2024 End: 04-16-2024 Patient encounter procedure DO Janie Theodore Work Phone: [facility] [address] Work Phone: Start: 04-16-2024 End: 04-16-2024 ambulatory Igor Becerra [facility] Work Phone: Start: 03-23-2024 End: 03-23-2024 care visit Betsy BUCHANAN Work Phone: [facility] Comment on above: 6 weeks f ollow-up Start: 03-23-2024 End: 03-23-2024 ambulatory BETSY GOODWIN Not Available Start: 03-10-2024 End: 03-10-2024 Clinisync Result Encounter Janie Theodore DO Work Phone: [facility] Unsolicited Start: 03-10-2024 End: 03-10-2024 Clinisync Result Encounter Janie Theodore DO Work Phone: [facility] Unsolicited Start: 03-10-2024 End: 03-10-2024 ambulatory Janie Theodore [facility] Work Phone: Start: 03-10-2024 End: 03-10-2024 Departed Referred DO Janie Theodore Work Phone: [facility] Start: 03-04-2024 End: 03-05-2024 Telephone encounter Janie Theodore DO Work Phone: [facility] Comment on above: Abdominal Pain (Teresa ent scheduled for surgery on 03/10. Patient is complaining of pain radiating from breast bone to belly button and asking if this is normal.) Start: 03-02-2024 End: 03-02-2024 Bamboo flowsheet Janie Theodore DO Work Phone: [facility] Start: 03-02-2024 End: 03-02-2024 Bamboo flowsheet Janiemargarita Theodore DO Work Phone: [facility] Start: 03-02-2024 End: 03-02-2024 Office outpatient new 45 minutes Janiemargarita Theodore DO Work Phone: [facility] Comment on above: Symptomatic cholelit hiasis (Primary Dx) Start: 03-02-2024 End: 03-02-2024 ambulatory JANIE ARBEN Not Available Start: 02-07-2024 End: 02-07-2024 Clinisync Result Encounter Edward Justen DO Work Phone: [facility] Unsolicited Start: 02-07-2024 End: 02-07-2024 Clinisync Result Encounter Edward Justen DO Work Phone: [facility] Unsolicited Start: 02-06-2024 End: 02-06-2024 Clinisync Result Encounter Edward Justen DO Work Phone: [facility] Unsolicited Start: 02-06-2024 End: 02-06-2024 Clinisync Result Encounter Edward Justen DO Work Phone: [facility] Unsolicited Start: 02-03-2024 End: 02-03-2024 ambulatory EDWARD JUSTEN Not Available Start: 01-27-2024 End: 01-27-2024 ambulatory EDWARD JUSTEN Not Available Start: 01-20-2024 End: 01-20-2024 ambulatory EDWARD JUSTEN Not Available Start: 01-06-2024 End: 01-06-2024 ambulatory BETSY ROCIO Not Available Start: 12-23-2023 End: 12-23-2023 ambulatory EDWARD JUSTEN Not Available Start: 12-05-2023 End: 12-05-2023 ambulatory EDWARD JUSTEN Not Available Start: 11-25-2023 End: 11-25-2023 ambulatory EDWARD JUSTEN Not Available Start: 11-20-2023 End: 11-26-2023 Telephone encounter Jennifer Smiley RN M[facility]- Medicine at [facility] Start: 11-12-2023 End: 11-12-2023 ambulatory EDWARD JUSTEN Not Available Start: 11-07-2023 End: 11-08-2023 [facility] Start: 11-07-2023 End: 11-07-2023 Office consultation new/estab patient 60 min Mitul Rdz MD Work Phone: [facility]- Medicine at [facility] Comment on above: 24 weeks gestation o f (Primary Dx); Single umbilical artery; Circumvallate placenta during in second trimester, antepartum; Family history of cystic fibrosis Start: 10-23-2023 End: 10-23-2023 Chart abstracting Scanning Provider External [facility]- Medicine at [facility] Start: 10-22-2023 End: 10-23-2023 Chart abstracting Mitul Rdz MD Work Phone: [facility]- Medicine at [facility] Start: 10-15-2023 End: 10-15-2023 ambulatory EDWARD JUSTEN Not Available Start: 09-17-2023 End: 09-17-2023 ambulatory BETSY GOODWIN Not Available Start: 08-19-2023 End: 08-19-2023 ambulatory EDWARD JUSTEN Not Available Start: 07-25-2023 Clinisync Result Encounter Edward Justen DO Work Phone: [facility] Unsolicited Start: 07-25-2023 Clinisync Result Encounter Edward Justen DO Work Phone: [facility] Department Unsolicited Start: 07-19-2023 End: 07-19-2023 Office outpatient visit 5 minutes [facility] Justen Nurse [facility] Comment on above: GA: 9w0d Start: 07-19-2023 End: 07-19-2023 ambulatory EDWARD JUSTEN Not Available Start: 07-08-2023 ambulatory Royer Layne acility:[facility] Start: 07-02-2023 End: 07-02-2023 ambulatory EDWARD JUSTEN Not Available Start: 07-30-2022 End: 07-31-2022 ambulatory DUARTE VALDERRAMA Facility:[facility] Start: 07-23-2022 End: 07-23-[address] EDWARD CAMPUZANO Facility:[facility] Start: 04-18-2022 End: 04-19-2022 ambulatory DUARTE VALDERRAMA Facility:[facility] Start: 02-10-2022 End: 02-11-[address] LYLA SALGADO Facility:[facility] Start: 02-08-2022 End: 02-10-2022 Evaluation and management of inpatient DR EDWARD CAMPUZANO Facility:[facility] Start: 02-05-2022 End: 02-05-[address] EDWARD CAMPUZANO Facility:[facility] Start: 02-03-2022 End: 02-03-2022 ambulatory KRISTINA VELEZ Facility:[facility] Start: 01-25-2022 End: 01-26-[address] PRASANNA KAMINSKI Facility:[facility] Start: 01-15-2022 End: 01-17-[address] PRASANNA KAMINSKI Facility:[facility] Start: 12-30-2021 End: 12-30-[address] EDWARD CAMPUZANO Facility:[facility] Start: 12-29-2021 End: 12-29-[address] EDWARD CAMPUZANO Facility:[facility] Start: 12-18-2021 End: 12-18-[address] PRASANNA KAMINSKI Facility:[facility] Start: 11-27-2021 End: 11-28-[address] EDWARD CAMPUZANO Facility:[facility] Start: 11-23-2021 End: 11-23-[address] DOCTOR MISC Facility:[facility] Start: 11-06-2021 End: 11-07-[address] DOCTOR MISC Facility:[facility] Start: 10-29-2021 End: 10-29-[address] DOCTOR MISC Facility:[facility] Start: 10-26-2021 End: 10-26-[address] DOCTOR MISC Facility:[facility] Start: 10-26-2021 End: 10-27-[address] DOCTOR MISC Facility:[facility] Start: 10-24-2021 End: 10-24-[address] DOCTOR MISC Facility:[facility] Start: 09-28-2021 End: 09-29-[address] EDWARD CAMPUZANO Facility:[facility] Start: 09-16-2021 End: 09-16-2021 ambulatory ILIR ANN Facility:[facility] Start: 06-21-2021 End: 09-19-2021 Recurring Edward CAMPUZANO [facility] Start: 03-05-2020 End: 03-06-2020 Patient encounter procedure [facility] Start: 03-05-2020 End: 03-05-2020 [facility] Work Phone: [facility] Comment on above: Chronic low back sharon n, unspecified back pain laterality, unspecified whether sciatica present Procedures Date Procedure Procedure Detail Performing Clinician Start: 05-28-2024 URINARY TRACT INFECT ION (HTRX) Betsy BUCHANAN Work Phone: Start: 05-28-2024 End: 05-28-2024 Urnls dip stick/tablet rgnt non-auto w/o micrscp Betsy BUCHANAN Work Phone: Start: 04-21-2024 Urnls dip stick/tabl et rgnt non-auto w/o micrscp Edward Justen DO Work Phone: Start: 03-10-2024 HCG QUALITATIVE* Janie Mccoy uckett DO Work Phone: Start: 02-07-2024 ALL CBC WITH AUTO DIFF Edward Justen DO Work Phone: Start: 02-06-2024 HMHP CBC WITH PLATEL ET NO DIFFERENTIAL Edward Justen DO Work Phone: Start: 09-17-2023 Microscopic observat ion [Identifier] in Cervix by Cyto stain Mitul Rdz MD Work Phone: Start: 07-25-2023 ALL CBC WITH AUTO DIFF Edward Justen DO Work Phone: Start: 07-19-2023 End: 07-19-2023 Urnls dip stick/tablet rgnt non-auto w/o micrscp Edward Campuzano DO Work Phone: Start: 02-08-2022 Delivery [...] Treatment Date Care Activity Detail Author Start: 02-11-2032 DTaP,Tdap and Td Vac cines (8 - Td or Tdap) DTaP,Tdap and Td Vaccines (8 - Td or Tdap) [facility] Start: 09-16-2026 Screening for malign ant neoplasm of cervix Pap Smear [facility] Start: 11-06-2024 Tobacco Screening Tobacco Screening [facility] Start: 10-19-2024 End: 10-19-2024 Patient encounter procedure 10/19/2024 1:00 PM EDT Office Visit [facility] [address] [place] [address] Edward Campuzano DO [address], [facility] Start: 05-28-2024 End: 05-28-2024 Patient encounter procedure 05/28/2024 2:50 PM EST Office Visit [facility] [address] [place] [address] Betsy Goodwin PA [address] [place] [address] Arrived [facility] Comment on above: Arrived Start: 04-21-2024 End: 04-21-2024 Patient encounter procedure 04/21/2024 1:50 PM EST Office Visit [facility] [address] [place] [address] Edward Campuzano, DO [address] [place] [address] [facility] Start: 04-16-2024 [facility] Start: 03-23-2024 End: 03-23-2024 ambulatory 03/23/2024 11:30 AM EDT Visit [facility] [address] [place] [id number] Betsy Goodwin PA [address] [place] [address] [facility] Start: 03-10-2024 End: 03-10-2024 Patient encounter procedure 03/10/2024 7:30 AM EDT Procedure Visit [facility] ArbenJanie, [address] [place] [address] [facility] Start: 03-02-2024 End: 03-02-2024 Patient encounter procedure 03/02/2024 10:15 AM EDT Office Visit [facility] [address] [place] [address] ArebnJanie, [address] [place] [address] Arrived [facility] Comment on above: Arrived Start: 02-16-2024 Influenza vaccination N [facility] Start: 12-05-2023 End: 12-05-2023 Telemedicine consultation with patient 12/05/2023 3:00 PM EDT Telemedicine Maternal- Medicine at [facility] [address] [place] [id number] Gabriella Caballero, [facility] [address] [place] [address] Maternal- Medicine at [facility] Start: 11-07-2023 End: 11-07-2023 Patient encounter procedure [facility] - [facility] Start: 08-19-2023 End: 08-19-2023 Patient encounter procedure 08/19/2023 11:10 AM EST Routine [facility] [address] [place] [address] Edward Campuzano, DO [address] [place] [address] [facility] Start: 07-19-2023 End: 07-19-2024 ABO/Rh ABO/Rh Lab Routine Missed menses Expected: 07/19/2023 (Approximate), Expires: 07/19/2024 [facility] Comment on above: Expected: [...] Influenza Vaccine (#1) [facility] Start: 08-31-2015 DTaP,Tdap and Td Vac cines (1 - Tdap) DTaP,Tdap and Td Vaccines (1 - Tdap) [facility] Start: 2014 Adult BMI Screening Adult BMI Screen ing [facility] Start: 2014 Hepatitis C antibody , confirmatory test Hepatitis C Screening [facility] Start: 08-31-2011 HIV screening HIV Screening [facility] Start: 2008 Depression Screening Depression Scre ening [facility] Start: 2008 Tobacco Screening Tobacco Screening [facility] Start: 08-31-2007 Vaccination for [...] Routine Missed menses Ordered: 07/19/2023 [facility] Comment on above: Ordered: 07/19/2023 Bacteria identified in Urine by Culture Urine culture Microbiology Routine Yeast infection Ordered: 05/28/2024 [facility] Work Phone: Comment on above: Ordered: 05/28/2024 CBC W Auto Different ial panel - Blood CBC and differential Lab Routine Missed menses Ordered: 07/19/2023 [facility] Comment on above: Ordered: 07/19/2023 CHLAMYDIA TRACHOMATI S (GENITO/STI) CHLAMYDIA TRACHOMATIS (GENITO/STI) Lab Routine Yeast infection Ordered: 05/28/2024 [facility] Comment on above: Ordered: 05/28/2024 Hemoglobin A1c measurement Hemoglobin A1c Lab Routine Missed menses Ordered: 07/19/2023 [facility] Comment on above: Ordered: 07/19/2023 Hepatitis B virus knight rface Ag [Presence] in Serum or Plasma by Immunoassay Hepatitis B surface antigen Lab Routine Missed menses Ordered: 07/19/2023 [facility] Comment on above: Ordered: 07/19/2023 Hepatitis C virus Ab [Presence] in Serum or Plasma by Immunoassay Hepatitis C antibody Lab Routine Missed menses Ordered: 07/19/2023 [facility] Comment on above: Ordered: 07/19/2023 HIV-1/HIV-2 antigen/antibody combination immunoassay HIV-1 and HIV-2 antibodies Lab Routine Missed menses Ordered: 07/19/2023 [facility] Comment on above: Ordered: 07/19/2023 Homogenous nuclear A b pattern [Titer] in Serum [facility] Neisseria gonorrhoea e DNA [Presence] in Unspecified specimen by JONATAN with probe detection Neisseria gonorrhea DNA probe, direct Lab Routine Yeast infection Ordered: 05/28/2024 [facility] Comment on above: Ordered: 05/28/2024 Nuclear Ab [Titer] i n Serum [facility] Reagin Ab [Presence] in Serum by RPR RPR Lab Routine Missed menses Ordered: 07/19/2023 [facility] Comment on above: Ordered: 07/19/2023 Rubella antibody, IgG Rubella an tibody, IgG Lab Routine Missed menses Ordered: 07/19/2023 [facility] Comment on above: Ordered: 07/19/2023 SURESWAB(R) ADVANCED VAGINITIS PLUS, TMA SURESWAB(R) ADVANCED VAGINITIS PLUS, TMA Pathology and Cytology Routine Yeast infection Ordered: 05/28/2024 [facility] Comment on above: Ordered: 05/28/2024 End: 11-06-2024 Unlisted Lab Test Unlisted Lab Test Lab Routine 24 weeks gestation of Single umbilical artery 1 Occurrences starting 11/07/2023 until 11/06/2024 [facility] Work Phone: Comment on above: 1 Occurrences starti ng 11/07/2023 until 11/06/2024 Payers Date Payer Category Payer Self-pay [id number] 2022 Medicaid [id number] 2022 Private Health Insurance [facility] [id number] 1996 Unknown [id number] 2.16.840.1.028920.3.579.2. 903 1996 Unknown [id number] 2.16.840.1.008571.3.579.2. 593 1996 Unknown [id number] 2.16.840.1.541795.3.579.2. 593 1996 Unknown [id number] 2.16.840.1.811740.3.579.2. 593 1996 Unknown [id number] 2.16.840.1.496885.3.579.2. 593 1996 Unknown [id number] 2.16.840.1.650147.3.579.2. 593 1996 Unknown [id number] 2.16.840.1.931729.3.579.2. 593 1996 Unknown [id number] 2.16.840.1.654554.3.579.2. 593 1996 Unknown [id number] 2.16.840.1.279471.3.579.2. 593 1996 Unknown [id number] 2.16.840.1.826869.3.579.2. 593 1996 Unknown [id number] 2.16.840.1.502003.3.579.2. 593 1996 Unknown [id number] 2.16.840.1.979162.3.579.2. 593 1996 Unknown [id number] 2.16.840.1.147075.3.579.2. 593 1996 Unknown [id number] 2.16.840.1.771592.3.579.2. 593 1996 Unknown [id number] 2.16.840.1.899714.3.579.2. 593 1996 Unknown [id number] 2.16.840.1.746361.3.579.2. 593 1996 Unknown [id number] 2.16.840.1.484393.3.579.2. 593 1996 Unknown [id number] 2.16.840.1.891161.3.579.2. 593 1996 Unknown [id number] 2.16.840.1.796516.3.579.2. 593 1996 Unknown [id number] 2.16.840.1.928576.3.579.2. 593 1996 Unknown [id number] 2.16.840.1.298552.3.579.2. 593 1996 Unknown [id number] 2.16.840.1.052492.3.579.2. 593 1996 Unknown [id number] 2.16.840.1.855771.3.579.2. 1286 1996 Unknown [id number] 2.16.840.1.701003.3.579.2. 1286 1996 Unknown [id number] 2.16.840.1.672985.3.579.2. 727 1996 Unknown [id number] 2.16.840.1.621555.3.579.2. 727 1996 Unknown [id number] 2.16.840.1.077905.3.579.2. 125 1996 Unknown [id number] 2.16.840.1.171619.3.579.2. 1259 1996 Unknown [id number] 2.16.840.1.827036.3.579.2. 1259 1996 Unknown [id number] 2.16.840.1.128731.3.579.2. 1258 1996 Unknown [id number] 2.16.840.1.606303.3.579.2. 1259 1996 Unknown [id number] 2.16.840.1.963754.3.579.2. 1259 1996 Unknown [id number] 2.16.840.1.114585.3.579.2. 1258 1996 Unknown [id number] 2.16.840.1.963137.3.579.2. 1258 1996 Unknown [id number] 2.16.840.1.994578.3.579.2. 1258 1996 Unknown [id number] 2.16.840.1.903006.3.579.2. 1258 1996 Unknown [id number] 2.16.840.1.468325.3.579.2. 1258 1996 Unknown [id number] 2.16.840.1.177397.3.579.2. 1258 1996 Unknown [id number] 2.16.840.1.591700.3.579.2. 1258 1996 Unknown [id number] 2.840.1.137471.3.579.2. 1258 1996 Unknown [id number] 2.16.840.1.772454.3.579.2. 1258 1996 Unknown [id number] 2.16.840.1.945524.3.579.2. 1258 1996 Unknown [id number] 2.16.840.1.543675.3.579.2. 1258 1959 Unknown [id number] 1959 Unknown [id number] Unknown COMMERCIAL COMME RCIAL MISCELLANEOUS [id number] Effective for all dates [id number] 1.2.840.732218.1.13.385.2. 7.3.692374.315 Unknown [id number] Unknown [id number] 2.16840.1.664433.3.579.2. 531 Unknown [id number] 2.840.1.204485.3.579.2. 531 Unknown [id number] 2.840.1.805944.3.579.2. 531 Social History Date Type Detail Facility Tobacco smoking stat us NHIS Unknown if ever smoked [facility] Start: 1996 Sex Assigned At Not on file [facility] Start: 07-28-2020 End: 12-07-2022 Sex Assigned At Female [facility] Start: 12-07-2022 End: 10-22-2023 Tobacco smoking status NHIS Never smoked tobacco [facility] Start: 07-19-2023 End: 11-07-2023 Alcohol intake Current drinker of alcohol (finding) [facility] Start: 07-28-2020 End: 12-07-2022 History of Social function [facility] Start: 11-29-2022 Sexual orientation Heterosexual (finding) [facility] Childcare Unknown [facility] Functional Status Date Assessment Result Facility 05-07-2024 Functional Status Yes [facility] Clinical Notes 01-15-2022 to 05-28-2024 CHANEL Mims - 05/28/2024 2:50 PM Nedra Yoon LPN - 04/21/2024 1:50 PM CHANEL Crowe - 03/23/2024 11:30 AM Ana Theodore DO - 03/02/2024 10:15 AM Karen Smiley RN - 11/07/2023 2:30 PM EDT Note Date & Type Note Facility 05-28-2024 History of Present illness Narrative Reason for Appointment: Patient ID: Michelle Godinez is a 28 y.o. female who presents for No chief complaint on file. Patient presents today for Consult appointment. MEDICATIONS Current Outpatient Medications Medication Instructions MV & Min w/FA-DHA ( Gummies) 0.18-25 MG chewable tablet 1 each, Oral, Daily valACYclovir (VALTREX) 500 mg, Oral, Daily ALLERGIES Allergies Allergen Reactions Wound Dressing Adhesive Itching PROBLEMS Active Ambulatory Problems Diagnosis Date Noted UTI symptoms 08/19/2023 Vaginal discharge 08/19/2023 Encounter for screening for cervical length 08/19/2023 Hematuria 08/19/2023 Resolved Ambulatory Problems Diagnosis Date Noted No Resolved Ambulatory Problems Past Medical History: Diagnosis Date 6 weeks follow-up Acute depression (CMS/[facility]) BMI 30.0-30.9,adult Breast lump on right side at 7 o'clock position Fibromyalgia Gallstones Genital herpes Hip pain, right Insomnia, idiopathic Miscarriage 2018 Spondyloarthropathy HISTORY PAST MEDICAL HISTORY SOCIAL HISTORY Past Medical History: Diagnosis Date 6 weeks follow-up Acute depression (CMS/HCC) BMI 30.0-30.9,adult Breast lump on right side at 7 o'clock position Fibromyalgia Gallstones Genital herpes Hematuria Hip pain, right Insomnia, idiopathic Miscarriage 2018 Spondyloarthropathy Social History Tobacco Use Smoking status: Never Smokeless tobacco: Not on file Substance Use Topics Alcohol use: Yes Comment: 1-2 drinks less than monthly in the past year Drug use: Never FAMILY HISTORY Family History Problem Relation Name Age of Onset Hypertension Mother Cancer Mother either hodgkin's or non-hodgkin's lymphoma , thyroid cancer Mental illness Father ADD / ADHD Brother Hypertension Maternal Grandmother Heart disease Maternal Grandmother Hypertension Maternal Grandfather Hypertension Paternal Grandmother Mental illness Paternal Grandmother SURGICAL HISTORY Past Surgical History: Procedure Laterality Date DILATION AND CURETTAGE 2018 UT TONSILLECTOMY & ADENOIDECTOMY AGE 13/> 2015 WISDOM TOOTH EXTRACTION REVIEW OF SYSTEMS Review of Systems: Review of Systems Constitutional: Negative. HENT: Negative. Eyes: Negative. Respiratory: Negative. Cardiovascular: Negative. Gastrointestinal: Negative. Genitourinary: Positive for vaginal discharge. Musculoskeletal: Negative. Skin: Negative. Neurological: Negative. All other systems reviewed and are negative. Hematological: Negative. Endocrine: Negative. Allergic/Immunologic: Negative. OBJECTIVE Objective: Physical Exam Constitutional: Appearance: Normal appearance. She is well-developed. Genitourinary: Vulva normal. Cardiovascular: Rate and Rhythm: Normal rate and regular rhythm. Pulmonary: Effort: Pulmonary effort is normal. Breath sounds: Normal breath sounds. Abdominal: General: Bowel sounds are normal. There is no distension. Palpations: Abdomen is soft. Tenderness: There is no abdominal tenderness. There is no guarding or rebound. Musculoskeletal: General: No swelling. Normal range of motion. Right lower leg: No edema. Left lower leg: No edema. Neurological: Mental Status: She is alert and oriented to person, place, and time. Skin: General: Skin is warm and dry. Psychiatric: Mood and Affect: Mood normal. Behavior: Behavior normal. Vitals and nursing note reviewed. Exam conducted with a bisque kiln drawer present. Vitals: Estimated body mass index is 32.62 kg/m as calculated from the following: Height as of 03/02/24: 5' 3 . Weight as of 04/21/24: 184 lb 1.9 oz. BP: No LMP recorded. ASSESSMENT & PLAN Patient presents for vaginal discharge. Patient voiced that she has a jackson green/slime discharge on/off since delivery. Patient voiced this happens with wiping. Obtained vaginal cultures without difficulty and urine will also be sent out for culture. Terazol 7 sent to patients pharmacy to be used internally and externally. Patient will await results for further treatment if needed. Documented by Eloisa Mondragon LPN on behalf of: CHANEL Mims documented in this encounter [facility] 05-07-2024 Hospital Discharge instructions Patient Education 05/07/2024 15:25:22 Antibiotic Medicine, Adult Antibiotic Medicine, Adult Antibiotic medicines are used to treat infections caused by bacteria. These medicines do not work for illnesses caused by viruses. Antibiotics work by killing the bacteria that are making you sick, but they can also have serious side effects. Antibiotics must be used safely and only when needed. When do I need to take antibiotics? You may need antibiotics for: A urinary tract infection (UTI). Strep throat. Bacterial sinus infection. Meningitis. Serious lung infections. Your health care provider may start you on antibiotics while you are waiting for test results. Tests may include a culture of the throat, urine, blood, or mucus. Your health care provider may change or stop your antibiotic depending on your test results. When are antibiotics not needed? You do not need antibiotics for most common illnesses. These illnesses may be caused by a virus, not by bacteria. You do not need antibiotics for: The common cold. The flu (influenza). Sore throat. Discolored mucus. Bronchitis. Antibiotics are not always needed for all infections caused by bacteria. Many of these infections clear up on their own. Do not take antibiotics when they are not needed. How long should I take my antibiotic? You must take the entire amount prescribed to you. Take your antibiotics as told by your health care provider. Do not stop taking your antibiotics even if you start to feel better. If you stop taking them too soon: You may feel sick again. Your infection may get harder to treat. Each course of antibiotics needs a different length of time to work. The length of time may vary from a few days to a few weeks. What if I miss a dose? Try not to miss any doses of medicine. If you miss a dose, call your health care provider or pharmacist for help. Sometimes, it is okay to take the missed dose as soon as possible. Do not take double or extra doses. What are the risks of taking antibiotics? Antibiotics can cause: Allergic reactions. Nausea. Yeast infections. Liver problems. Antibiotics can also cause an infection called Clostridioides difficile (C. difficile or C. diff), which causes severe diarrhea. This infection happens when the antibiotics kill the healthy bacteria in your intestines. This allows C. diff to grow. C. diff needs to be treated right away. Let your health care provider know if: You have diarrhea while taking an antibiotic. You have diarrhea after you stop taking an antibiotic. C. diff infection can start weeks after stopping the antibiotic. Taking an antibiotic also puts you at risk for getting sick in the future with bacteria that do not respond to medicine (antibiotic-resistant infection). Antibiotics can cause bacteria to change so that if the antibiotic is taken again, the medicine cannot kill the bacteria. These infections can be more serious because they are hard, or sometimes impossible, to treat. Do antibiotics affect control? control pills may not work while you are taking antibiotics. If you are taking control pills: Keep taking them as usual. Use a second form of control, such as a condom, to avoid unwanted . Do this for as long as told by your health care provider. What else should I know about taking antibiotics? Take antibiotics exactly as told. Take the correct amount of medicine at the same time each day. Ask your health care provider: ?How long to wait between doses. ?If you should take your antibiotic with food or water. ?If you should avoid certain foods, drinks, or medicines while taking your antibiotics. ?If you need to watch for any side effects. Use only the antibiotics prescribed to you by your health care provider. Do not use antibiotics prescribed for someone else. Drink a large glass of water when taking your antibiotics unless told otherwise. Drink enough fluid to keep your urine pale yellow. Ask your pharmacist for a dosage syringe, cup, or spoon that correctly measures your antibiotics. Ask your pharmacist or health care provider how to safely get rid of leftover medicine. Follow these instructions at home: Take your antibiotics as told by your health care provider. Do not stop taking your antibiotics even if you start to feel better. Return to your normal activities as told by your health care provider. Ask your health care provider what activities are safe for you. Contact a health care provider if: Your symptoms get worse. You have new joint pain or muscle aches that begin after starting your antibiotic. You have side effects from your antibiotic, such as: ?Stomach pain. ?Diarrhea. ?Nausea. ?White patches in your mouth or throat. Get help right away if: You have signs of a severe allergic reaction to antibiotics. If you have any of these signs, stop taking the antibiotic right away. Signs may include: ?Raised, itchy, red bumps on your skin (hives). ?Skin rash. ?Trouble breathing. ?High-pitched whistling sounds when you breathe, most often when you breathe out (wheezing). ?Swelling anywhere on your body. ?Feeling dizzy. ?Vomiting. You have signs of liver problems, such as: ?Dark or blood-colored urine. ?Yellow color to your skin. ?Bruising or bleeding easily. You have severe diarrhea, bloody diarrhea, or stomach cramps. You have a severe headache. These symptoms may be an emergency. Get help right away. Call 911. Do not wait to see if the symptoms will go away. Do not drive yourself to the hospital. This information is not intended to replace advice given to you by your health care provider. Make sure you discuss any questions you have with your health care provider. Document Revised: 01/01/2023 Document Reviewed: 01/01/2023 [employer] Patient Education 2023 [employer]. Follow Up Care 04/24/2024 09:40:34 With:LEYDI JEFFERS PA-C, URL Address: [address] [place] [address] Business (1) When: only if needed [facility] 05-07-2024 Note Patient Education Caregiving Antibiotic Medicine, Adult Antibiotic medicines are used to treat infections caused by bacteria. These medicines do not work for illnesses caused by viruses. Antibiotics work by killing the bacteria that are making you sick, but they can also have serious side effects. Antibiotics must be used safely and only when needed. When do I need to take antibiotics? You may need antibiotics for: ??? A urinary tract infection (UTI). ??? Strep throat. ??? Bacterial sinus infection. ??? Meningitis. ??? Serious lung infections. Your health care provider may start you on antibiotics while you are waiting for test results. Tests may include a culture of the throat, urine, blood, or mucus. Your health care provider may change or stop your antibiotic depending on your test results. When are antibiotics not needed? You do not need antibiotics for most common illnesses. These illnesses may be caused by a virus, not by bacteria. You do not need antibiotics for: ??? The common cold. ??? The flu (influenza). ??? Sore throat. ??? Discolored mucus. ??? Bronchitis. Antibiotics are not always needed for all infections caused by bacteria. Many of these infections clear up on their own. Do not take antibiotics when they are not needed. How long should I take my antibiotic? You must take the entire amount prescribed to you. Take your antibiotics as told by your health care provider. Do not stop taking your antibiotics even if you start to feel better. If you stop taking them too soon: ??? You may feel sick again. ??? Your infection may get harder to treat. Each course of antibiotics needs a different length of time to work. The length of time may vary from a few days to a few weeks. What if I miss a dose? Try not to miss any doses of medicine. If you miss a dose, call your health care provider or pharmacist for help. Sometimes, it is okay to take the missed dose as soon as possible. Do not take double or extra doses. What are the risks of taking antibiotics? Antibiotics can cause: ??? Allergic reactions. ??? Nausea. ??? Yeast infections. ??? Liver problems. Antibiotics can also cause an infection called Clostridioides difficile (C. difficile or C. diff), which causes severe diarrhea. This infection happens when the antibiotics kill the healthy bacteria in your intestines. This allows C. diff to grow. C. diff needs to be treated right away. Let your health care provider know if: ??? You have diarrhea while taking an antibiotic. ??? You have diarrhea after you stop taking an antibiotic. C. diff infection can start weeks after stopping the antibiotic. Taking an antibiotic also puts you at risk for getting sick in the future with bacteria that do not respond to medicine (antibiotic-resistant infection). Antibiotics can cause bacteria to change so that if the antibiotic is taken again, the medicine cannot kill the bacteria. These infections can be more serious because they are hard, or sometimes impossible, to treat. Do antibiotics affect control? control pills may not work while you are taking antibiotics. If you are taking control pills: ??? Keep taking them as usual. ??? Use a second form of control, such as a condom, to avoid unwanted . Do this for as long as told by your health care provider. What else should I know about taking antibiotics? Take antibiotics exactly as told. ??? Take the correct amount of medicine at the same time each day. ??? Ask your health care provider: ? How long to wait between doses. ? If you should take your antibiotic with food or water. ? If you should avoid certain foods, drinks, or medicines while taking your antibiotics. ? If you need to watch for any side effects. ??? Use only the antibiotics prescribed to you by your health care provider. Do not use antibiotics prescribed for someone else. ??? Drink a large glass of water when taking your antibiotics unless told otherwise. Drink enough fluid to keep your urine pale yellow. ??? Ask your pharmacist for a dosage syringe, cup, or spoon that correctly measures your antibiotics. ??? Ask your pharmacist or health care provider how to safely get rid of leftover medicine. Follow these instructions at home: ??? Take your antibiotics as told by your health care provider. Do not stop taking your antibiotics even if you start to feel better. ??? Return to your normal activities as told by your health care provider. Ask your health care provider what activities are safe for you. Contact a health care provider if: ??? Your symptoms get worse. ??? You have new joint pain or muscle aches that begin after starting your antibiotic. ??? You have side effects from your antibiotic, such as: ? Stomach pain. ? Diarrhea. ? Nausea. ? White patches in your mouth or throat. Get help right away if: ??? You have sig (more content not included)... [facility] 04-21-2024 History of Present illness Narrative Reason for Appointment: Patient ID: Michelle Godinez is a 28 y.o. female who presents for Discuss future children Patient presents today for Acute Visit. MEDICATIONS Current Outpatient Medications Medication Instructions fluconazole (DIFLUCAN) 150 mg, Oral, Once, This is a 1 time dose, take single tablet by mouth. MV & Min w/FA-DHA ( Gummies) 0.18-25 MG chewable tablet 1 each, Oral, Daily valACYclovir (VALTREX) 500 mg, Oral, Daily ALLERGIES Allergies Allergen Reactions Wound Dressing Adhesive Itching PROBLEMS Active Ambulatory Problems Diagnosis Date Noted UTI symptoms 08/19/2023 Vaginal discharge 08/19/2023 Encounter for screening for cervical length 08/19/2023 Hematuria 08/19/2023 Resolved Ambulatory Problems Diagnosis Date Noted No Resolved Ambulatory Problems Past Medical History: Diagnosis Date 6 weeks follow-up Acute depression (CMS/HCC) BMI 30.0-30.9,adult Breast lump on right side at 7 o'clock position Fibromyalgia Gallstones Genital herpes Hip pain, right Insomnia, idiopathic Miscarriage 2018 Spondyloarthropathy HISTORY PAST MEDICAL HISTORY SOCIAL HISTORY Past Medical History: Diagnosis Date 6 weeks follow-up Acute depression (CMS/HCC) BMI 30.0-30.9,adult Breast lump on right side at 7 o'clock position Fibromyalgia Gallstones Genital herpes Hematuria Hip pain, right Insomnia, idiopathic Miscarriage 2018 Spondyloarthropathy Social History Tobacco Use Smoking status: Never Smokeless tobacco: Not on file Substance Use Topics Alcohol use: Yes Comment: 1-2 drinks less than monthly in the past year Drug use: Never FAMILY HISTORY Family History Problem Relation Name Age of Onset Hypertension Mother Cancer Mother either hodgkin's or non-hodgkin's lymphoma , thyroid cancer Mental illness Father ADD / ADHD Brother Hypertension Maternal Grandmother Heart disease Maternal Grandmother Hypertension Maternal Grandfather Hypertension Paternal Grandmother Mental illness Paternal Grandmother SURGICAL HISTORY Past Surgical History: Procedure Laterality Date DILATION AND CURETTAGE 2018 UT TONSILLECTOMY & ADENOIDECTOMY AGE 13/> 2015 WISDOM TOOTH EXTRACTION REVIEW OF SYSTEMS Review of Systems: Review of Systems OBJECTIVE Objective: OBGyn Exam Vitals: Estimated body mass index is 32.62 kg/m as calculated from the following: Height as of 24: 5' 3 . Weight as of this encounter: 184 lb 1.9 oz. BP: 104/64 No LMP recorded. ASSESSMENT & PLAN ICD-10-CM 1. Yeast infection B37.9 fluconazole (Diflucan) 150 MG tablet 2. Encounter for fertility planning Z31.89 3. Recurrent UTI N39.0 Urine dip Pt having recurrent UTIs rx for cleocin faxed to pharmacy along with diflucan. Pt to be referred to urology. Documented by Piedad Yoon LPN on behalf of: Edward Campuzano DO documented in this encounter [facility] 03-23-2024 History of Present illness Narrative Reason for Appointment: Patient ID: Michelle Godinez is a 28 y.o. female who presents for Care (Pt present today for a 6 week post visit. Pt delivered on 02/06/2024 vaginal w/a 1st degree laceration (perineal).) Patient presents today for Post Follow Up appointment. MEDICATIONS Current Outpatient Medications Medication Instructions omeprazole (PRILOSEC) 20 mg, Oral, Daily before breakfast, Do not crush or chew. MV & Min w/FA-DHA ( Gummies) 0.18-25 MG chewable tablet 1 each, Oral, Daily valACYclovir (VALTREX) 500 mg, Oral, Daily ALLERGIES Allergies Allergen Reactions Wound Dressing Adhesive Itching PROBLEMS Active Ambulatory Problems Diagnosis Date Noted UTI symptoms 08/19/2023 Vaginal discharge 08/19/2023 Encounter for screening for cervical length 08/19/2023 Hematuria 08/19/2023 Resolved Ambulatory Problems Diagnosis Date Noted No Resolved Ambulatory Problems Past Medical History: Diagnosis Date 6 weeks follow-up Acute depression (CMS/HCC) BMI 30.0-30.9,adult Breast lump on right side at 7 o'clock position Fibromyalgia Gallstones Genital herpes Hip pain, right Insomnia, idiopathic Miscarriage 2018 Spondyloarthropathy HISTORY PAST MEDICAL HISTORY SOCIAL HISTORY Past Medical History: Diagnosis Date 6 weeks follow-up Acute depression (CMS/HCC) BMI 30.0-30.9,adult Breast lump on right side at 7 o'clock position Fibromyalgia Gallstones Genital herpes Hematuria Hip pain, right Insomnia, idiopathic Miscarriage 2018 Spondyloarthropathy Social History Tobacco Use Smoking status: Never Smokeless tobacco: Not on file Substance Use Topics Alcohol use: Yes Comment: 1-2 drinks less than monthly in the past year Drug use: Never FAMILY HISTORY Family History Problem Relation Name Age of Onset Hypertension Mother Cancer Mother either hodgkin's or non-hodgkin's lymphoma , thyroid cancer Mental illness Father ADD / ADHD Brother Hypertension Maternal Grandmother Heart disease Maternal Grandmother Hypertension Maternal Grandfather Hypertension Paternal Grandmother Mental illness Paternal Grandmother SURGICAL HISTORY Past Surgical History: Procedure Laterality Date DILATION AND CURETTAGE 2018 UT TONSILLECTOMY & ADENOIDECTOMY AGE 13/> 2014 WISDOM TOOTH EXTRACTION REVIEW OF SYSTEMS Review of Systems: Review of Systems OBJECTIVE Objective: OBGyn Exam Vitals: Estimated body mass index is 32.24 kg/m as calculated from the following: Height as of 24: 5' 3 . Weight as of this encounter: 182 lb. BP: 114/64 Patient's last menstrual period was 05/17/2023 (exact date). ASSESSMENT & PLAN ICD-10-CM 1. 6 weeks follow-up Z39.2 Post Follow Up: Patient is doing well but has complaints of healing from her gallbladder surgery she just had a few weeks ago. Pt is wanting to discuss future fertility plans w/next , a telephone visit will be scheduled w/Dr. Campuzano. Patient presents today for 6 week visit. Patient is s/p Vaginal delivery. Patient states depression but denies suicidal and homicidal ideations. All options were discussed with the patient regarding control and patient desires none at this time. Follow Up: Patient is to return for annual unless needed otherwise. Documented by Cori Daniel MA on behalf of: CHANEL Mims documented in this encounter [facility] 03-02-2024 History of Present illness Narrative General Surgery H&P Michelle Godinez 1995 Michelle Godinez is a 28 y.o. female presents with chief complaint of Cholelithiasis (Pt states that she has had pain in her abdomen and in the center of her chest for a few months now. She states that Dr. Campuzano ordered an ultrasound in November and they saw she had gallstones, but she was at the time. She states that she was at [facility] ER yesterday due to the pain and they gave her pain medicine. ) + abdominal pain after fatty/greasy meals. Denies hx of excessive weight loss. Denies fevers, chills, or sweats. Denies nausea or vomiting. Discussed surgery and risks for laparoscopic cholecystectomy robotic assisted procedure. Patient would like to proceed with surgery. Imaging reviewed of RUQ US discussed and explained to patient. SUBJECTIVE: MEDICATIONS: ALLERGIES Current Outpatient Medications Medication Instructions omeprazole (PRILOSEC) 20 mg, Oral, Daily before breakfast, Do not crush or chew. MV & Min w/FA-DHA ( Gummies) 0.18-25 MG chewable tablet 1 each, Oral, Daily valACYclovir (VALTREX) 500 mg, Oral, Daily Allergies Allergen Reactions Wound Dressing Adhesive Itching PAST MEDICAL HISTORY: SOCIAL HISTORY SURGICAL HISTORY: Past Medical History: Diagnosis Date 6 weeks follow-up Acute depression (CMS/HCC) BMI 30.0-30.9,adult Breast lump on right side at 7 o'clock position Fibromyalgia Gallstones Genital herpes Hematuria Hip pain, right Insomnia, idiopathic Miscarriage 2018 Spondyloarthropathy Social History Tobacco Use Smoking status: Never Substance Use Topics Alcohol use: Yes Comment: 1-2 drinks less than monthly in the past year Drug use: Never Past Surgical History: Procedure Laterality Date DILATION AND CURETTAGE 2018 UT TONSILLECTOMY & ADENOIDECTOMY AGE 13/> 2015 WISDOM TOOTH EXTRACTION Family History Problem Relation Name Age of Onset Hypertension Mother Cancer Mother either hodgkin's or non-hodgkin's lymphoma , thyroid cancer Mental illness Father ADD / ADHD Brother Hypertension Maternal Grandmother Heart disease Maternal Grandmother Hypertension Maternal Grandfather Hypertension Paternal Grandmother Mental illness Paternal Grandmother Allergies Allergen Reactions Wound Dressing Adhesive Itching Past Surgical History: Procedure Laterality Date DILATION AND CURETTAGE 2018 UT TONSILLECTOMY & ADENOIDECTOMY AGE 13/> 2015 WISDOM TOOTH EXTRACTION Tobacco Use: Unknown (11/07/2023) [facility] [facility] Patient History Smoking Tobacco Use: Never Smokeless Tobacco Use: Unknown Passive Exposure: Not on file Alcohol Use: Not on file Depression: Not on file Physical Activity: Not on file REVIEW OF SYMPTOMS: Review of Systems All other systems reviewed and are negative. 10 systems were reviewed. Positives noted above. Remainder are negative per CMS guidelines OBJECTIVE: Visit Vitals BP 118/68 Pulse 74 Resp 12 Ht 5' 3 Wt 193 lb LMP 05/17/2023 (Exact Date) SpO2 99% BMI 34.19 kg/m OB Status Smoking Status Never BSA 1.97 m Physical Exam Vitals reviewed. General: AAOx3, NAD Head: atraumatic normocephalic Neck: trachea midline. No masses or lymphadenopathy Heart: Regular rate and rhythm Lungs: equal chest rise and fall, non labored breathing Abdomen: soft, nontender, and non distended Ext: motor 5/5 all extremities with no gross deformities Psych: alert and oriented, behavior appropriate Imaging reviewed RUQ US ASSESSMENT AND PLAN: Assessment/Plan Diagnoses and all orders for this visit: Symptomatic cholelithiasis Patient informed of the risks of laparoscopic cholecystectomy robotic assisted procedure which include but not limited to bleeding, scarring, damage to nearby structures, chronic pain, wound healing issues, possible need for more procedures and risks of anesthesia. Patient understood risks and signed informed consent. Will schedule at patient's earliest convenience. Thank you, Milka Theodore DO documented in this encounter [facility] 11-20-2023 Miscellaneous Notes Spoke with michelle and fern (spouse) about process for carrier screening for FOB. Both agreeable. Michelle was able to send copy of fern's insurance for the carrier order to be placed. Lexi Caballero aware of plan. Patient to see Lexi on 12/04 documented in this encounter [facility]23 Telephone encounter Note Spoke with michelle and fern (spouse) about process for carrier screening for FOB. Both agreeable. Michelle was able to send copy of fern's insurance for the carrier order to be placed. Lexi Federico aware of plan. Patient to see Lexi on 12/04 [facility] 11-20-2023 Miscellaneous Notes Images from the original note were not included. Called patient with results of her carrier screen She herself does not have a hearing loss Phenotype and genotype of the condition were discussed Partner screening recommended We reviewed amniocentesis she declines She has a scheduled appointment with the genetic counselor on 12/05/23 We will attempt to arrange for partner screening prior to that documented in this encounter [facility] 11-20-2023 Telephone encounter Note Images from the original note were not included. Called patient with results of her carrier screen She herself does not have a hearing loss Phenotype and genotype of the condition were discussed Partner screening recommended We reviewed amniocentesis she declines She has a scheduled appointment with the genetic counselor on 12/05/23 We will attempt to arrange for partner screening prior to that [facility] 11-07-2023 History of Present illness Narrative [facility] Maternal- Medicine Consult Note Reason For Consult: Single umbilical artery HPI: Michelle Godinez is a 28 y.o. at 24w6d with Estimated Date of Delivery: 02/21/24 who presented for consultation from Edward Dixon DO regarding Chief Complaint Patient presents with Vessel cord I have reviewed the pertinent available patient records including but not limited to notes, labs and images Presents with her mother. She reports that she is doing well. She reports normal movements and she denies leakage of fluid, contractions or vaginal bleeding. She denies fever, chills, nausea, vomiting, shortness of breath, chest pain, headache, blurry vision, right upper quadrant pain or edema. Complications: Single umbilical artery Circumvallate placenta Depression - mood stable. no SI Obesity History of herpes History of breast lumps she tells me that she has been seen before for that and has a follow-up Hematuria per patient resovled Low risk cell free DNA No carrier screen The patient mother tells me that she has a carrier for cystic fibrosis and they are some family members with the condition. The patient herself has not been screen Both her and the father of the baby report history of learning difficulty at school where the required additional assistance. No history of autism FOB paternal aunt paternal grandfather ? [id number] syndrome Denies smoking, alcohol or other substance use in Recent hospitalization: no Review of systems: Review of systems was noncontributory OB Hx: OB History Para Term AB Living 4 2 1 2 SAB IAB Ectopic Multiple Live Births 1 2 # Outcome Date GA Lbr Ricky/2nd Weight Sex Type Anes PTL Lv 4 Current 3 Para 02/08/22 3.09 kg M Vag-Spont JAM 2 Para 02/27/19 3.26 kg F Vag-Spont JAM 1 SAB 07/2017 SAB PMH: Past Medical History: Diagnosis Date Depression Fibromyalgia Hematuria Insomnia, idiopathic Spondyloarthropathy PSHIST: Past Surgical History: Procedure Laterality Date ADENOIDECTOMY DILATION AND CURETTAGE OF UTERUS TONSILLECTOMY WISDOM TOOTH EXTRACTION Allergies: Allergies Allergen Reactions Adhesive Tape-Silicones Itching Meds: Prior to Admission medications Medication Sig Start Date End Date Taking? Authorizing Provider ferrous sulfate 325 (65 FE) mg tablet Take 1 tablet (325 mg total) by mouth daily with breakfast. Not In System Ref Prov ondansetron ODT (ZOFRAN ODT) 4 mg disintegrating tablet Dissolve 1 tablet (4 mg total) on tongue every 8 (eight) hours as needed for nausea or vomiting. Not In System Ref Prov valACYclovir (VALTREX) 500 mg tablet Take 1 tablet (500 mg total) by mouth in the morning and 1 tablet (500 mg total) before bedtime. Not In System Ref Prov SH: Social History Socioeconomic History Marital status: Spouse name: Not on file Number of children: Not on file Years of education: Not on file Highest education level: Not on file Occupational History Not on file Tobacco Use Smoking status: Never Smokeless tobacco: Not on file Substance and Sexual Activity Alcohol use: Yes Drug use: Never Sexual activity: Yes Other Topics Concern Not on file Social History Narrative Not on file Social Determinants of Health Financial Resource Strain: Not on file Food Insecurity: No Food Insecurity (11/07/2023) Hunger Screening Food Insecurity - Worry: Never True Food Insecurity - Inability: Never True Transportation Needs: Not on file Physical Activity: Not on file Stress: Not on file Social Connections: Not on file Interpersonal Safety: Not on file Housing Instability: Not on file Physical Exam: Vital Signs Vitals: 11/07/23 1301 BP: 107/53 BP Site: Left Arm BP Postition: Lying Pulse: 66 Weight: 76.8 kg (169 lb 4 oz) Physical Exam: Gen: Not in acute distress, alert and oriented. Eyes: Pupils equal and reactive Chest: Nonlabored breathing Cardiac: Pulse was regular on vital signs assessment Abdomen: Gravid Skin/extremities: Appears intact. No visible lesions MS:no visible edema Neuro: No focal deficits Notes/Imaging/Labs reviewed No visits with results within 1 Month(s) from this visit. Latest known visit with results is: No results found for any previous visit. Ultrasound findings Pertinent Ultrasound findings are see report. IMPRESSION: 1. Single intrauterine with size consistent with dates. 2. Amniotic fluid volume assessment (DVP) is normal. 3. Single umbilical artery identified, absent right. 4. No sonographic evidence of any other gross structural abnormality identified Assessment/Plan 28 y.o. @ at 24w6d with Estimated Date of Delivery: 02/21/24 here for consultation regardin. 24 weeks gestation of - PNV no.[id number] 400 mcg-35 mg- 25 mg-5 mg tablet,chewable; Take 2 gummies daily during the Dispense: 60 tablet; Refill: 6 - Unlisted Lab Test; Future 2. Single umbilical artery - PNV no.[id number]-[id number] 400 mcg-35 mg- 25 mg-5 mg tablet,chewable; Take 2 gummies daily during the Dispense: 60 tablet; Refill: 6 - Unlisted Lab Test; Future The incidence of SUA is 0.25% to 1% of all martinez pregnancies and up to 4.6% of twin gestations. An isolated SUA with no other structural or chromosomal abnormalities should be distinguished from an SUA that is present with other abnormalities. The rate of associated structural anomalies when an SUA is detected has been reported to range from 13% to 56%. The most common associated anomalies have been noted to occur in the renal, cardiovascular, gastrointestinal, and central nervous systems. Genetic syndromes that may feature an SUA include VATER complex (a group of congenital anomalies consisting of vertebral defects, imperforate anus, tracheoesophageal fistula, and radial and renal dysplasia), Meckel-Loly, and Zellweger. Teratogenic exposures such as maternal hyperglycemia and phenytoin have also been associated with SUA. When other abnormalities are present, there is an increased likelihood of chromosomal abnormalities as well as other syndromes. Aneuploidy occurs in about 9% (range, 0%-26%) of fetuses with SUA when it is associated with other anomalies. Trisomies 21 and 18 have been reported in case series of SUA, but Mcdaniel syndrome, triploidy, and chromosomal deletions and rearrangements have also been reported in babies with SUA. An isolated SUA has been suggested to increase the risk of morbidity, such as intrauterine growth restriction and possibly mortality. Despite all of these associations, the finding of an SUA is nonspecific and is most commonly seen in a normal fetus. Growth ultrasounds and surveillance recommended 3. Circumvallate placenta during in second trimester, antepartum Today there is a circumvallate placenta I reviewed with the patient that circumvallate placenta can be associated with adverse outcomes such as growth restriction, placental abruption and stillbirth. Candidate for growth ultrasounds and surveillance 4. Family history of cystic fibrosis I reviewed with the patient that I would recommend that she gets screened for cystic fibrosis. In addition we reviewed expanded carrier screen for autosomal recessive conditions and excellent disorders and limitations of this test was reviewed. Phenotype and genotype of cystic fibrosis was discussed and we also reviewed pattern of inheritance. She desires to be screen and have an expanded carrier screen performed There is also some family history of learning difficulties she has never been given a formal diagnosis neither the father of the baby. Risk of recurrence for learning difficulties was overall reviewed and we discussed various causes and multifactorial nature. In addition on the father of the baby side there is a concern for a history of Skmbkzqq-jyc-cobmq syndrome. This can be an autosomal dominant condition. She tells me that the father of the baby does not have the condition however he has not also been tested. Ejunirah-iqv-gvjyj syndrome can present with a variable degree of penetrance and therefore I would recommend that she has a genetic consultation. I reviewed amniocentesis with her. We reviewed in detail amniocentesis for genetic testing. Risks of the procedure were discussed including risk of loss 1 in 800, infection, bleeding, rupture of membranes. The patient declines amniocentesis. They desire evaluation if needed. They are interested in having a genetic consultation to further discussed risks. Recommendations: Declined amniocentesis Expanded carrier screen ordered Genetic referral consultation we will schedule Serial growth ultrasounds every 4 weeks after the anatomy scan through OB office testing to be initiated at 32 weeks weekly NST and DVP through OB office Delivery recommended at 39 weeks or sooner if an indication arises Please monitor patient mood Please notify the leisure studies professor about the family history. I also recommended to the patient to notify the leisure studies professor about her other children so they can be examined and further tested if indicated Plan reviewed with patient. She vocalized understanding all questions answered. The patient is to continue with routine care in your office Thank you for allowing me to participate in her care. Please contact me if you have any concerns. Mitul Rdz MD, FACOG (she/hers) Maternal- Medicine [facility] [address] [place] [address] [facility], the CDC, and other organizations representing maternal and public health professionals recommend that , , and lactating people and those considering receive the COVID-19 vaccination. Vaccination is the best method to reduce maternal and complications of SARS-CoV-2 infection. This document was created with [employer] technology. Though I make every effort to review the dictation as it is transcribed, on occasion the spoken word can be misinterpreted by the technology leading to inappropriate words, phrases, or sentences. This note is addressed to the requesting provider as a consultation for clinical guidance. Specific medical abbreviations are occasionally used and those are generally approved by the [place]?Board of?Obstetrics and?Gynecology?as well as?Trace owens abbreviations. The above plan of care was based solely on the diagnoses for which a consultation was requested. ?More frequent testing may be indicated based on her other medical/obstetrical conditions. The management of other or medical conditions is beyond the scope of requested consultation and will continue to be followed by the primary credit support specialist or primary care provider. Note to patient: The Cures Act makes medical notes like these available to patients in the interest of transparency. However, be advised this is a medical document. It is intended as peer to peer communication. It is written in medical language and may contain abbreviations or verbiage that are unfamiliar. It may appear blunt or direct. Medical documents are intended to carry relevant information, facts as evident, and the clinical opinion of the practitioner. Headache/epigastric pain/blurry vision/swelling? no Cramping/contractions? yes Abnormal vaginal discharge? no Spotting/vaginal bleeding? no Loss of fluid like your water may have broken? no Cats in the home? no Do you change the litter box? N/a Flu vaccine? no Genetic testing done this here or other office? yes Have you been seen here at [facility] in a previous ? no Recent ER visits or hospitalizations? Patient was seen on Saturday or Saturday for consistent contractions that have since resolved. Patient was told there were no changes to the cervix. Bring blood sugar log or meter with you today? (Please bring them with you for every visit at [facility]) Traveled outside the country in the past 6 month no Any concerns that you would like me to mention to the provider today? no Blood drawn for carrier screening testing. Patient tolerated well. Specimen sent to lab documented in this encounter [employer] 07-19-2023 History of Present illness Narrative Reason for Appointment: Patient ID: Michelle Godinez is a 27 y.o. female who [...] Procedure Laterality Date DILATION AND CURETTAGE 2018 UT TONSILLECTOMY & ADENOIDECTOMY AGE 13/> 2015 WISDOM [...] sent for nausea to pharmacy. Pt desires [place] [facility] and understands to have it done at 10 weeks along w/her labs. Follow Up: Patient is to have labs drawn at directed and return to office for initial OB appointment with provider. Patient may call office as needed with any concerns or questions. Nurse Visit Completed by: Cori Daniel MA documented in this encounter [facility] 01-16-2022 Note OB ultrasound for bi ophysical [...] by: Cecelia FOOTE Date: 2022-01-16 21:33 [facility] 01-16-2022 Note OB ultrasound for bi ophysical [...] by: Cecelia FOOTE Date: 2022-01-16 21:33 [facility] 01-15-2022 Note PROCEDURE: US KIDNEY S, 01/15/2022, [...] by: IGOR DIAZ Date: 2022-01-15 10:10 [facility] Evaluation + Plan note No data available for this section [facility] Evaluation note Diagnosis Missed menses Nausea Nausea alone documented in this encounter [facility] HealthcareEvaluation noteNo assessment information availableM[facility] Work Phone: Evaluation note* Diagnosis 6 weeks follow-up documented in this encounter [facility] HealthcareEvaluation note* Diagnosis Yeast infection Encounter for fertility planning Recurrent UTI Urinary tract infection, site not specified documented in this encounter [facility] HealthcareEvaluation note* Diagnosis Symptomatic cholelithiasis- Primary documented in this encounter [facility] HealthcareEvaluation note* Diagnosis Yeast infection documented in this encounter [facility] HealthcareEvaluation note* Diagnosis 24 weeks gestation of - 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 Advance Directives and Livin g Will 03/05/2020 2:18 PM Advance Directive Response Recorded Date/ Time Advance Directives No February 09, 2017 9:35am Assessments Diagnosis Chronic low back pain, unspecified back pain laterality, unspecified whether sciatica present Additional Source Comments INFORMATION SOURCE (unrecogn ized section and content) DATE CREATED AUTHOR 11/08/2018 [facility] DATE CREATED AUTHOR AUTHOR'S ORGANIZ ATION 03/21/2020 [facility] DATE CREATED AUTHOR AUTHOR'S ORGANIZ ATION 08/04/2022 [facility] DATE CREATED AUTHOR AUTHOR'S ORGANIZ ATION 11/09/2023 [facility] DATE CREATED AUTHOR AUTHOR'S ORGANIZ ATION 04/27/2024 [facility] DATE CREATED AUTHOR AUTHOR'S ORGANIZ ATION 05/10/2024 [place] [facility] DATE CREATED AUTHOR AUTHOR'S ORGANIZ ATION 05/31/2024 [facility] EPIC Reason for Visit (unrecogniz ed section and content) Reason Comments Initial Visit Reason Comments Care Pt present today for a 6 week post visit. Pt delivered on 02/06/2024 vaginal w/a 1st degree laceration (perineal). Reason Comments Discuss future children Reason Comments Cholelithiasis Pt states that she h as had pain in her abdomen and in the center of her chest for a few months now. She states that Dr. Campuzano ordered an ultrasound in November and they saw she had gallstones, but she was at the time. She states that she was at [facility] ER yesterday due to the pain and they gave her pain medicine. Reason Onset Date Comments Abdominal Pain 03/04/2024 Patient schedule d for surgery on 03/10. Patient is complaining of pain radiating from breast bone to belly button and asking if this is normal. Reason Comments Vessel cord Care Teams (unrecognized sec tion and content) Team Status: Inactive Member Role Status Dates Janie Theodore DO Attending Provider Active Star t: March 10, 2024 End: March 10, 2024 Style Advisor Relationship Specialty Start Date End Date Raudel Osborne MD [address] [facility] [place] [id number] PCP - General Family Medicine 03/02/24 Team Status: Inactive Member Role Status Dates Igor Becerra MD Attending Provider Active St art: April 16, 2024 End: April 16, 2024 Style Advisor Relationship Specialty Start Date End Date Raudel Osborne MD [address] [facility] [place] [address] PCP - General Family Medicine 03/02/24 Style Advisor Relationship Specialty Start Date End Date Raudel Osborne MD [address] [facility] [place] [address] PCP - General Family Medicine 03/02/24 Edward Campuzano DO [address] [place] [address] [place] [address] PCP - [facility] 03/17/24 Style Advisor Relationship Specialty Start Date End Date Raudel Osborne MD [address] [facility] [place] [address] PCP - General Family Medicine 03/02/24 Style Advisor Relationship Specialty Start Date End Date Raudel Osborne MD [address] [facility] [place] [address] PCP - General Family Medicine 03/02/24 Style Advisor Relationship Specialty Start Date End Date Raudel Osborne MD [address] [facility] [place] [address] PCP - General Family Medicine 03/02/24 Edward Campuzano DO [address] [place] [address] [place] [address] PCP - [facility] 03/17/24 Style Advisor Relationship Specialty Start Date End Date Raudel Osborne MD [address] [facility] [place] [address] PCP - General Family [facility] 03/02/24 Edward Campuzano DO [address] [place] [address] PCP - [facility] 03/17/24 Style Advisor Relationship Specialty Start Date End Date Raudel Osborne MD [address] [place] [address] PCP - [facility] 03/02/24 Edward Campuzano DO [address] [place] [address] PCP - [facility] 03/17/24 Style Advisor Relationship Specialty Start Date End Date Raudel Osborne MD [address] [place] [address] PCP - [facility] 03/02/24 Goals (unrecognized section and content) Goals may be documented in a n alternate section FOR RECORDS PERTAINING TO PATIENTS WHO ARE [...] BE BASED ON THE PRIMARY CLINICAL RECORDS. [facility]. provides no warranty or guarantee of the accuracy or completeness of information in this document.
[2024-08-12 09:06] LABS: Basophils Absolute Auto 0.1 10^3/uL (0.0-0.1); Eosinophils Absolute Auto 0.3 10^3/uL (0.0-0.7); Eosinophils Percent Auto 3.7 % (0.9-7.0); Hematocrit 39.5 % (36.0-48.0); Hemoglobin 12.6 g/dL (12.0-16.0); Immature Granulocytes Abs Auto 0.01 10^3/uL (0.00-0.03); Immature Granulocytes Pct Auto 0.1 % (0.0-0.5); Lymphocytes Absolute Auto 2.4 10^3/uL (1.2-3.8); Lymphocytes Percent Auto 33.3 % (20.5-60.0); Mean Corpuscular HGB Conc 31.9 g/dL (29.9-35.2); Mean Corpuscular Hemoglobin 27.5 pg (26.7-34.0); Mean Corpuscular Volume 86.2 fL (81.0-99.0); Mean Platelet Volume 9.5 fL (9.5-13.5); Monocytes Absolute Auto 0.6 10^3/uL (0.3-0.8); Monocytes Percent Auto 8.2 % (1.7-12.0); Neutrophils Absolute Auto 3.9 10^3/uL (1.4-6.5); Neutrophils Percent Auto 53.7 % (43.0-75.0); Platelet Count 334 10^3/uL (150-450); Red Blood Count 4.58 10^6/uL (4.20-5.40); Red Cell Distribution Width 14.4 % (11.0-15.0); White Blood Count 7.3 10^3/uL (4.0-11.0)
[2024-08-12 11:18] LABS: Estimated Average Glucose 100 mg/dL; Glycohemoglobin A1C 5.1 % (4.5-6.2)
[2024-08-12 11:27] LABS: Alanine Aminotransferase 75 U/L (14-59); Albumin Globulin Ratio 1.1; Albumin Level 3.8 g/dL (3.4-5.0); Alkaline Phosphatase 138 U/L (46-116); Anion Gap 11.7; Aspartate Amino Transferase 33 U/L (15-37); BUN Creatinine Ratio 17.1; Bilirubin Total 0.6 mg/dL (0.2-1.0); Calcium 9.6 mg/dL (8.5-10.1); Carbon Dioxide 29.5 mmol/L (21.0-32.0); Chloride 103 mmol/L (98-107); Chol HDL Ratio 2.9; Cholesterol 178 mg/dL (<=200); Estimated GFR (African America >60 (>=60 mL/min/1.73m^2); Estimated GFR (Non-African Ame >60 (>=60 mL/min/1.73m^2); Free T3 2.58 pg/mL (2.18-3.98); Globulin 3.5 g/dL; Glucose 99 mg/dL (74-106); HDL Cholesterol 61 mg/dL (40-60); Potassium 4.2 mmol/L (3.5-5.1); Sodium 140 mmol/L (136-145); Thyroid Stimulating Hormone 1.122 uIU/mL (0.358-3.740); Total Protein 7.3 g/dL (6.4-8.2); Triglycerides 73 mg/dL (<=150); VLDL CHOLESTEROL 14.6 mg/dL
[2024-08-13 04:07] LABS: Vitamin B12 447 pg/mL (232-1245)
[2024-08-13 06:07] LABS: Insulin 13.6 uIU/mL (2.6-24.9)
== END 2024-08-12 08:45 | disposition home or self-care (01) ==
LOC: LAB 08:44
PROVIDERS: PCP Nurse Practitioner Family; Visit Provider Nurse Practitioner Family
DX: R53.83 Other fatigue (principal)
CPT/HCPCS: 36415; 80053; 80061; 82306; 82607; 83036; 83525; 83540; 84436; 84443; 84481; 85025

== ENCOUNTER 2024-09-15 12:31 | Outpatient (OUT) | payer OTHER, SELFPAY ==
--- NOTE | 2024-09-15 12:34 | US_ITS ---
[address] [address] Patient Name: SANDY GODINEZ MRN: [id number] date: 1995 Sex: F Assigned Patient Location: US Current Patient Location: US Accession/Order Number: [id number] Exam Date: 09/15/2024 13:45 Report Date: 09/15/2024 13:47 At the request of: JOSE MIGUEL BOATENG DO Procedure: US pelvis transvaginal Transvaginal pelvic ultrasound HISTORY: Left pelvic pain for 2 months. Uterus anteverted. No uterine mass. Uterus measures 6.8 x 3.8 x 3.0 cm. Endometrium has a total combined thickness of 1.7 cm. Right ovary measures 1.4 x 1.6 x 2.7 cm. The resistive index of the right ovary 0.5. Left ovary measures 2.3 x 1.9 x 1.8 cm and has a resistive index of 0.5. Color-flow both ovaries. No adnexal mass. No free fluid. US/US pelvis transvaginal IMPRESSION: Unremarkable exam. Impression dictated by: Vinicio Loyd M.D.09/15/2024 1:47 PM Dictation Location: [place] [address] Electronically authenticated by: [id number] Y Date: 09/15/2024 13:47
== END 2024-09-15 12:32 | disposition home or self-care (01) ==
LOC: US 12:32
PROVIDERS: PCP Nurse Practitioner Family; Visit Provider Obstetrics & Gynecology
DX: R10.2 Pelvic and perineal pain (principal)
CPT/HCPCS: 76830

== ENCOUNTER 2024-10-06 10:37 | Outpatient (OUT) | payer OTHER, SELFPAY ==
[2024-10-06 11:22] LABS: Alanine Aminotransferase 76 U/L (14-59); Albumin Level 3.6 g/dL (3.4-5.0); Alkaline Phosphatase 154 U/L (46-116); Anion Gap 11.7; Aspartate Amino Transferase 23 U/L (15-37); BUN Creatinine Ratio 15.4; Bilirubin Total 0.7 mg/dL (0.2-1.0); Carbon Dioxide 30.4 mmol/L (21.0-32.0); Chloride 104 mmol/L (98-107); Estimated GFR (African America >60 (>=60 mL/min/1.73m^2); Estimated GFR (Non-African Ame >60 (>=60 mL/min/1.73m^2); Globulin 3.5 g/dL; Glucose 101 mg/dL (74-106); Potassium 4.1 mmol/L (3.5-5.1); Sodium 142 mmol/L (136-145); Total Protein 7.1 g/dL (6.4-8.2)
== END 2024-10-06 10:38 | disposition home or self-care (01) ==
LOC: LAB 10:40
PROVIDERS: PCP Nurse Practitioner Family; Visit Provider Nurse Practitioner Family
DX: R74.8 Abnormal levels of other serum enzymes (principal)
CPT/HCPCS: 36415; 80053

== ENCOUNTER 2024-10-08 07:19 | Outpatient (OUT) | payer OTHER, SELFPAY ==
--- NOTE | 2024-10-08 07:21 | US_ITS ---
The [address] [address] Patient Name: SANDY GODINEZ MRN: [id number] date: 1995 Sex: F Assigned Patient Location: US Current Patient Location: US Accession/Order Number: [id number] Exam Date: 10/08/2024 13:05 Report Date: 10/08/2024 13:07 At the request of: DUARTE VALDERRAMA Procedure: US right upper quadrant LIMITED ABDOMINAL ULTRASOUND: CLINICAL HISTORY: Abnormal liver function COMPARISON: None TECHNIQUE: Grayscale and color Doppler images of the right upper quadrant organs were obtained. FINDINGS: Pancreas: Visualized portions appear unremarkable. Liver: Fatty infiltration with a potential hypoechoic lesion left lobe of the liver measuring 1.7 x 1.5 x 1.3 cm. Gallbladder: Lobe. CBD: 3.2 mm RT KIDNEY: No hydronephrosis. US/US right upper quadrant IMPRESSION: FATTY INFILTRATION OF LIVER POTENTIAL HYPOECHOIC LESION INVOLVING THE LEFT LOBE LIVER MEASURING 1.7 X 1.5 X 1.3 CM. COMPLETE EVALUATION WITH LIVER CT WITH AND WITHOUT IV CONTRAST IS RECOMMENDED.. Impression dictated by: Pk Frost Jr., D.O.10/08/2024 1:07 PM Dictation Location: [place] [address] Electronically authenticated by: [id number] Y Date: 10/08/2024 13:07
== END 2024-10-08 07:20 | disposition home or self-care (01) ==
LOC: US 07:19
PROVIDERS: PCP Nurse Practitioner Family; Visit Provider Nurse Practitioner Family
DX: K76.89 Other specified diseases of liver (principal)
CPT/HCPCS: 76705

== ENCOUNTER 2024-10-19 20:01 | Outpatient (REF) | payer OTHER, SELFPAY ==
[2024-10-22 10:08] LABS: Age Gdln ACOG Testing Note (.); IGP, rfx Aptima HPV ASCU Note (.)
== END 2024-10-19 20:02 | disposition home or self-care (01) ==
LOC: LAB 20:01
PROVIDERS: PCP Nurse Practitioner Family; Visit Provider Obstetrics & Gynecology
DX: Z01.419 Encounter for gynecological examination (general) (routine) without abnormal findings (principal)
CPT/HCPCS: 88175

== ENCOUNTER 2024-10-27 08:28 | Outpatient (OUT) | payer OTHER, SELFPAY ==
--- NOTE | 2024-10-27 08:31 | CT_ITS ---
The [address] [address] Patient Name: SANDY GODINEZ MRN: [id number] date: 1995 Sex: F Assigned Patient Location: CT Current Patient Location: CT Accession/Order Number: [id number] Exam Date: 10/27/2024 10:32 Report Date: 10/27/2024 10:48 At the request of: DUARTE VALDERRAMA Procedure: CT abdomen wo/w con CT ABDOMEN WITHOUT AND WITH INTRAVENOUS CONTRAST CLINICAL DATA: Fatty liver and left hepatic lesion on ultrasound. COMPARISON: Ultrasound 10/08/[address] abdomen 01/15/[address] chest 02/10/2022 Spiral images were obtained through the abdomen before and after intravenous administration of 100 mL of Omnipaque 300. This CT exam was performed using one or more following dose reduction techniques: Automated exposure control, adjustment of the mA and/or kV according to patient size, or use of iterative reconstruction technique. Limited cuts through the lung bases show no contributory findings. There is fatty infiltration of the liver. There is also additional focal fat near the fossa of the ligamentum teres. A subtle 2 cm enhancing area is seen toward the left hepatic dome. This might correlate with the area seen on ultrasound since no additional focal lesions are noted. Although subtle, this was seen on the comparison CTA chest from 2021 and is therefore likely benign. The gallbladder is surgically absent. No common duct stones are seen. The spleen, pancreas and adrenal glands show no acute findings. There are symmetric renal nephrograms, without hydronephrosis. The abdominal aorta is normal caliber. Tiny lymph nodes are present. No ascites is seen. There is a small umbilical hernia containing fat. There are normal caliber small bowel loops. There is a small amount of colonic stool. There is subtle dextroscoliotic curvature. CT/CT abdomen wo/w con IMPRESSION: FATTY LIVER. SUBTLE ENHANCING AREA AT THE LEFT HEPATIC DOME. ALTHOUGH INDETERMINATE, THIS WAS SEEN IN 2021 AND IS THEREFORE LIKELY BENIGN. UMBILICAL HERNIA CONTAINING FAT. NO OTHER ACUTE FINDINGS. Impression dictated by: Piedad Trujillo M.D. 10/27/2024 10:48 AM Dictation Location: [place] [address] Electronically authenticated by: [id number] Y Date: 10/27/2024 10:48
--- OUTSIDE RECORDS SUMMARY | 2024-10-27 08:34 | XMS_ITS | CCD ---
Author Organization [facility] Care Team Providers Care Archivist Political History Name Role Phone Rebecca Lange Primary Care Provider VIBHA JOHNSON Attending Unavailable VIBHA JOHNSON Referring Unavailable REBECCA LANGE Primary Care Unavailable Kelli Oliver Primary Care Physician [phone] MISC, DR LORENZANA Primary Care Unavailable MANOJ [...] Primary Care Unavailable KRISTINA VELEZ Attending Unavailable KRISITNA VELEZ Consulting Unavailable KRISTINA VELEZ Admitting Unavailable [...] Attending Unavailable REBECCA LANGE Primary Care Unavailable LAVELLE, DUARTE Consulting Unavailable [...] GILLESPIE Consulting Unavailable Unavailable Primary Care Provider Unavailabl e JUSTEN, EDWARD R Referring Unavailable MITUL RDZ Attending Unavailable JUSTEN, EDWARD R Referring Unavailable DO Janie Theodore Attending Provider Raudel Osborne MD Primary Care Provider [phone] MD Igor Becerra Attending Provider Edward Campuzano DO Unavailable Janie Theodore Admitting Unavailable Janie Theodore Attending Unavailable Igor Becerra Admitting Unavailable Igor Becerra Attending Unavailable Royer Simmons Admitting Unavailab Royer Watts [facility]availab [facility] Unavailable Raudel Osborne Primary Care Physician LEYDI JEFFERS Attending Unavailable Unavailable Primary Care Provider UnavailRaudel Ann MD Primary Care Provider [phone] JUSTEN, EDWARD Attending Unavailable CHRISTA, BETSY Attending Unavailable JUSTEN, EDWARD Attending Unavailable JUSTEN, EDWARD Attending Unavailable JUSTEN, EDWARD Attending Unavailable JUSTEN, EDWARD Attending Unavailable JUSTEN, EDWARD Attending Unavailable JUSTEN, EDWARD Attending Unavailable CHRISTA, BETSY Attending Unavailable JUSTEN, EDWARD Attending Unavailable JUSTEN, EDWARD Attending Unavailable JUSTEN, EDWARD Attending Unavailable JANIE THEODORE Attending Unavailable CHRISTA, BETSY Attending Unavailable JUSTEN, EDWARD Attending Unavailable CHRISTA, BETSY Attending Unavailable Allergies Allergy Classification Reported Allergen(s) Allergy Type Date of Onset Reaction(s) Facility (1 source) Desonide Drug Allergy 9 [facility] Repository (20 sources) Wound Dressing Adhesive Drug Intolerance 2 Itching [facility] Work Phone: (6 sources) ADHESIVE TAPE-SILICONES; 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: [ADHESIVE TAPE-SILICONES] Propensity to adverse reactions to drug (disorder) 4 Itching [facility] Repository Medications Current Medications Medication Drug Class(es) Dates Sig (Normalized) Sig (Original) cholecalciferol 0.025 mg oral tablet (12 sources) Vitamin D Start: 08-12-2024 take 1 tablet by mouth once daily cholecalciferol (Vitamin D3) 25 MCG (1000 UT) tablet Take 1 tablet by mouth Daily 08/12/2024 Active clindamycin 300 mg oral capsule (2 sources) [...] capsule by mouth in the morning nitrofurantoin, macrocrystal-monohyd rate, (Macrobid) 100 MG capsule Indications: UTI symptoms [...] needed for nausea or vomiting. Active PNV no.191-ZZ-nc1-hhg-ixp-ncge 400 mcg-35 mg- 25 mg-5 mg tablet,chewable (3 sources) Start: 11-07-2023 PNV no.156-AF-fr9-lja-vim-xphz 400 mcg-35 mg- 25 mg-5 mg tablet,chewable Indications: 24 weeks gestation of , Single umbilical artery Take 2 gummies daily during the 60 tablet 6 11/07/2023 Active Knp343-Noqobvr Fumarate-Fa () 28-800 mg-mcg Tablet (2 sources) Start: 06-10-2017 take 1 tablet by mouth once daily Bgu421-Njqjeqk Fumarate-Fa () 28-800 mg-mcg Tablet Active 1 TAB PO Daily June 10, 2017 1:00am predniSONE (1 source) Start: 03-13-2013 predniSONE Oral, Daily, Refills(s) 0 Start Date: 03/13/13 Status: Ordered MV & Min w/FA-DHA ( Gummies) 0.18-25 MG chewable tablet (20 sources) MV & Mi n w/FA-DHA ( [...] 10, 2017 1:00am July 16, 2017 7:14pm metroNIDAZOLE 0.0075 mg/mg vaginal gel (7 sources) Nitroimidazole Antimicrobial Start: 10-01-2024 End: 10-08-2024 take 1 tablet by mouth in the morning metroNIDAZOLE (Flagyl) 500 MG tablet Indications: Vaginal discharge , BV (bacterial vaginosis) Take 1 tablet (500 mg) by mouth in the morning and 1 tablet (500 mg) before bedtime. Do all this for 7 days. Do not drink alcohol while taking this medication. 14 tablet 10/01/2024 10/08/2024 Active Start: 10-01-2024 End: 10-31-2024 metroNIDAZOLE (Metrogel) 0.7 5 % vaginal gel Indications: Vaginal discharge , BV (bacterial vaginosis) Insert into the vagina 2 (two) times a week 70 g 2 10/01/2024 10/19/2024 Discontinued (Therapy completed) naproxen 375 mg oral tablet (1 source) Nonsteroidal Anti-inflammatory Drug Start: 03-13-2013 take 1 tablet by mouth twice daily Naprosyn 375 mg Tab 375 mg = 1 tab(s), Oral, BID, Take one by mouth two times a day, # 21 tab(s), Refills(s) 0, 0, Print Requisition Start Date: 03/13/13 Status: Ordered Problems Active Problems Problem Classification Problem Date Documented Date Episodic/Chronic Abdominal pain (8 sources) Left lower quadrant pain; 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: [Pelvic and perineal pain] Onset: 11-27-2021 Episodic Biliary tract disease (2 sources) Biliary calculus; [...] first trimester; 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: [Threatened ] 07-21-2017 Episodic Immunizations and screening for infectious disease (7 sources) Encounter for screening for infections with a predominantly sexual mode of transmission; 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: [Exposure to sexually transmissible disorder] Onset: 10-26-2021 Episodic Inflammatory diseases of female pelvic organs (2 sources) Bacterial vaginosis; 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: [Acute vaginitis] 10-01-2024 Episodic Menstrual disorders (1 source) Missed period; [...] Problem Classification Problem Date Documented Date Episodic/Chronic Diabetes mellitus without complication (1 source) Other [...] the genitourinary system] Onset: 08-19-2023 08-19-2023 Episodic Influenza (1 source) Influenza due to [...] 02-15-2022 Episodic Other aftercare (1 source) Other [place] [facility] (current) 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; 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: [OTH HALFWAY CURRENT [...] Onset: 10-26-2021 Episodic Other female genital disorders (20 sources) Vaginal discharge; 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: [Other specified noninflammatory [...] Test Name Value Interpretation Reference Range Facility IGP,APTIMA HPV,AGE GDLNon AGE GDLN ACOG TESTING Note . [facility] Comment on above: TESTS RESULT FLAG UN ITS REF RANGE LAB Clinician Provided Cytology Information Source.............Cervix;Endocervix No. of containers..01 ThinPrep Vial Age Algo ACOG Ela... 01 FLAG LEGEND: L-Low Normal,H-High Normal,LL-Alert Low,HH-Alert High <-Panic Low,>-Panic High,A-Abnormal,AA-Critical Abnormal Performed at: 01 =G [facility] [address] [place] [address] Katherine Thomason MD, IGP, RFX APTIMA HPV ASCU Note . [facility] Comment on above: TESTS RESULT FLAG UN ITS REF RANGE LAB DIAGNOSIS: 02 NEGATIVE FOR INTRAEPITHELIAL LESION OR MALIGNANCY. Specimen adequacy: 02 Satisfactory for evaluation. Endocervical and/or squamous metaplastic cells (endocervical component) are present. Performed by: 02 Monalisa Murillo, Pan Cleaner ([facility]) . 02 Note: Note 02 The Pap smear is a screening test designed to aid in the detection of premalignant and malignant conditions of the uterine cervix. It is not a diagnostic procedure and should not be used as the sole means of detecting cervical cancer. Both false-positive and false-negative reports do occur. Test Methodology: Note 02 This liquid based ThinPrep(R) pap test was screened with the use of an image guided system. . 02 The HPV DNA reflex criteria were not met with this specimen result therefore, no HPV testing was performed. FLAG LEGEND: L-Low Normal,H-High Normal,LL-Alert Low,HH-Alert High <-Panic Low,>-Panic High,A-Abnormal,AA-Critical Abnormal Performed at: [address] [facility] [place] [address] Katherine Thomason MD, Performed at: =G - [facility] [id number] Ticketing Agent: Katherine Thomason MD, Phone: [phone] Performed at: - [facility] [id number] Ticketing Agent: Katherine Thomason MD, Phone: [phone] BRUSH-SPATULA CERVIX ENDOCERVIX [facility] HCG ( test) Ql (U)o n 10-19-2024 Interpretation and review of laboratory results Normal [facility] Preg Test, Ur Negative Negative [facility] Urinalysis macro (dipstick) panel (U)on 10-19-2024 Bilirubin, UA Negative Negative - 4(70) +++ mg/dL [facility] Blood, UA Positive Negative - 50 Anselmo/mcL [facility] Comment on above: small Clarity, UA Clear [facility] Color, UA Yellow [facility] Glucose, UA Negative Negative - 2000(110) ++++ mg/dL [facility] Interpretation and review of laboratory results Abnormal [facility] Ketones, UA Negative Negative - 160(16) ++++ mg/dL [facility] Leukocytes, UA Trace Negative - 500+++ Monik/mcL [facility] Nitrite, UA Negative Negative - Positive [facility] pH, UA 7 5 - 9 [facility] Protein, UA Negative Negative - 2000(20) ++++ mg/dL [facility] Spec Grav, UA 1.025 1 - 1.03 [facility] Urobilinogen, UA 0.2 0.2 - 12 mg/dL [facility] RECURRENT VAGINITIS (HTRX)on 09-16-2024 ATOPOBIUM VAGINAE 0 [facility] ATOPOBIUM VAGINAE Not detected [facility] BVAB 2,3 (BACTERIAL VAGINOSIS ASSOCIATED BACTERIA 2, 3); MOBILUNCUS SPP 0 [facility] BVAB 2,3 (BACTERIAL VAGINOSIS ASSOCIATED BACTERIA 2, 3); MOBILUNCUS SPP Not detected [facility] SHANNON ALBICANS, PARAPSILOSIS, TROPICALIS 0 [facility] SHANNON ALBICANS, PARAPSILOSIS, TROPICALIS Not detected [facility] SHANNON GLABRATA 0 [facility] SHANNON GLABRATA Not detected [facility] SH[facility] KRUSEI 0 [facility] SHANNON KRUSEI Not detected [facility] CHLAMYDIA TRACHOMATIS 0 [facility] CHLAMYDIA TRACHOMATIS Not detected [facility] GARDNERELLA VAGINALIS 0 [facility] GARDNERELLA VAGINALIS Not detected [facility] MEGASPHAERA (TYPES 1, 2) 0 [facility] MEGASPHAERA (TYPES 1, 2) Not detected [facility] MYCOPLASMA GENITALIUM 0 [facility] MYCOPLASMA GENITALIUM Not detected [facility] NEISSERIA GONORRHOEAE 0 [facility] NEISSERIA GONORRHOEAE Not detected [facility] TRICHOMONAS VAGINALIS 0 [facility] TRICHOMONAS VAGINALIS Not detected [facility] HCG ( test) Ql (U)o n 09-15-2024 Interpretation and review of laboratory results Normal [facility] Preg Test, Ur Negative Negative [facility] [place] [address] Ultrasound Report Signed Patient: MICHELLE GODINEZ MR#: [id number] : 1995 Acct:[id number] Age/Sex: 29 / F ADM Date: 09/15/24 Loc: US Attending Dr: Edward Campuzano D.O. Ordering Physician: Edward Campuzano D.O. Date of Service: 09/15/24 Procedure(s): US pelvis transvaginal Accession Number(s): [id number] cc: DUARTE VALDERRAMA ; Edward Campuzano D.O. [place] [address] Patient Name: MICHELLE GODINEZ MRN: [id number] date: 1995 Sex: F Assigned Patient Location: US Current Patient Location: US Accession/Order Number: [id number] Exam Date: 09/15/2024 13:45 Report Date: 09/15/2024 13:47 At the request of: EDWARD CAMPUZANO DO Procedure: US pelvis transvaginal Transvaginal pelvic ultrasound HISTORY: Left pelvic pain for 2 months. Uterus anteverted. No uterine mass. Uterus measures 6.8 x 3.8 x 3.0 cm. Endometrium has a total combined thickness of 1.7 cm. Right ovary measures 1.4 x 1.6 x 2.7 cm. The resistive index of the right ovary 0.5. Left ovary measures 2.3 x 1.9 x 1.8 cm and has a resistive index of 0.5. Color-flow both ovaries. No adnexal mass. No free fluid. US/US pelvis transvaginal IMPRESSION: Unremarkable exam. Impression dictated by: Vinicio Loyd M.D.09/15/2024 1:47 PM Dictation Location: [place] [address] Electronically authenticated by: [id number] Y Date: 09/15/2024 13:47 Dictated By: Vinicio Loyd D.O. Signed By: 09/15/24 1353 DD/ 1341 TD/TT: Blue Cr[employer]ber: [facility] Radiology, Radiologist, MD - 09/15/2024 [place] [address] Ultrasound Report Signed Patient: MICHELLE GODINEZ MR#: [id number] : 1995 Acct:[id number] Age/Sex: 29 / F ADM Date: 09/15/24 Loc: US Attending Dr: Edward Campuzano D.O. Ordering Physician: Edward Campuzano D.O. Date of Service: 09/15/24 Procedure(s): US pelvis transvaginal Accession Number(s): [id number] cc: DUARTE VALDERRAMA ; Edward Campuzano D.O. [place] [address] Patient Name: MICHELLE GODINEZ MRN: [facility]:[id number] date: 1995 Sex: F Assigned Patient Location: US Current Patient Location: US Accession/Order Number: [id number] Exam Date: 09/15/2024 13:45 Report Date: 09/15/2024 13:47 At the request of: EDWARD CAMPUZANO DO Procedure: US pelvis transvaginal Transvaginal pelvic ultrasound HISTORY: Left pelvic pain for 2 months. Uterus anteverted. No uterine mass. Uterus measures 6.8 x 3.8 x 3.0 cm. Endometrium has a total combined thickness of 1.7 cm. Right ovary measures 1.4 x 1.6 x 2.7 cm. The resistive index of the right ovary 0.5. Left ovary measures 2.3 x 1.9 x 1.8 cm and has a resistive index of 0.5. Color-flow both ovaries. No adnexal mass. No free fluid. US/US pelvis transvaginal IMPRESSION: Unremarkable exam. Impression dictated by: Vinicio Loyd M.D.09/15/2024 1:47 PM Dictation [facility] Electronically authenticated by: [id number] Y Date: 09/15/2024 13:47 Dictated By: Vinicio Loyd D.O. Signed By: 09/15/24 1353 DD/ 1347 TD/TT: Blue Crabber: [facility] Radiology Study observation (narrative) [facility] US PELVIS TRANSVAGINALOrdere d By: Radiologist Radiology on 09-15-2024 [facility] Work Phone: Urinalysis macro (dipstick) panel (U)on 09-15-2024 Bilirubin, UA Negative Negative - 4(70) +++ mg/dL [facility] Blood, UA Positive Negative - 50 Anselmo/mcL [facility] Comment on above: trace-lysed Clarity, UA Clear [facility] Color, UA Yellow [facility] Glucose, UA Negative Negative - 1999(110) ++++ mg/dL [facility] Interpretation and review of laboratory results Abnormal [facility] Ketones, UA Negative Negative - 160(16) ++++ mg/dL [facility] Leukocytes, UA Positive Negative - 500+++ Monik/mcL [facility] Comment on above: small Nitrite, UA Negative Negative - Positive [facility] pH, UA 7.5 5 - 9 [facility] Protein, UA Trace Negative - 2000(20) ++++ mg/dL [facility] Spec Grav, UA 1.02 1 - 1.03 [facility] Urobilinogen, UA 0.2 0.2 - 12 mg/dL [facility] URINARY TRACT INFECTION (HTR X)on 05-30-2024 ACINETOBACTER BAUMANII 0 NO [facility] ACINETOBACTER BAUMANII Not detected [facility] SHANNON ALBICANS, PARAPSILOSIS, TROPICALIS 0 [facility] SHANNON ALBICANS, PARAPSILOSIS, TROPICALIS Not detected [facility] SHANNON GLABRATA 0 [facility] SHANNON GLABRATA Not detected [facility] SHANNON KRUSEI 0 [facility] SHANNON KRUSEI Not detected [facility] CITROBACTER FREUNDII 0 [facility] CITROBACTER FREUNDII Not detected [facility] ENTEROBACTER AEROGENES, CLOACAE 0 [facility] ENTEROBACTER AEROGENES, CLOACAE Not detected [facility] ENTEROCOCCUS FAECALIS, FAECIUM 0 [facility] ENTEROCOCCUS FAECALIS, FAECIUM Not detected [facility] ESCHERICHIA COLI 0 [facility] ESCHERICHIA COLI Not detected [facility] Interpretation and review of laboratory results Abnormal [facility] KLEBSIELLA PNEUMONIAE, OXYTOCA 0 [facility] KLEBSIELLA PNEUMONIAE, OXYTOCA Not detected [facility] MORGANELLA MORGANII 0 [facility] MORGANELLA MORGANII Not detected [facility] PROTEUS MIRABILIS, VULGARIS 0 [facility] PROTEUS MIRABILIS, VULGARIS Not detected [facility] PSEUDOMONAS AERUGINOSA 0 [facility] PSEUDOMONAS AERUGINOSA Not detected [facility] SERRATIA MARCESCENS 0 [facility] SERRATIA MARCESCENS Not detected [facility] STAPHYLOCOCCUS AUREUS 0 [facility] STAPHYLOCOCCUS AUREUS Not detected [facility] STAPHYLOCOCCUS EPIDERMIDIS, HAEMOLYTICUS, LUGDUNENSIS, SAPROPHYTICUS (URINA 0 [facility] STAPHYLOCOCCUS EPIDERMIDIS, HAEMOLYTICUS, LUGDUNENSIS, SAPROPHYTICUS (URINA Not detected [facility] STAPHYLOCOCCUS EPIDERMIDIS, HAEMOLYTICUS, LUGDUNENSIS, SAPROPHYTICUS (URINA 29.998 Abnormal [facility] STAPHYLOCOCCUS EPIDERMIDIS, HAEMOLYTICUS, LUGDUNENSIS, SAPROPHYTICUS (URINA Detected Abnormal [facility] STREPTOCOCCUS AGALACTIAE (GROUP B STREP) 0 [facility] STREPTOCOCCUS AGALACTIAE (GROUP B STREP) Not detected [facility] STREPTOCOCCUS PYOGENES (GROUP A STREP) 0 [facility] STREPTOCOCCUS PYOGENES (GROUP A STREP) Not detected [facility] HCG ( test) Ql (U)o n 05-28-2024 Interpretation and review of laboratory results Normal [facility] Preg Test, Ur Negative Negative [facility] Urinalysis macro (dipstick) panel (U)on 05-28-2024 Bilirubin, UA Negative Negative - 4(70) +++ mg/dL [facility] Blood, UA Positive Negative - 50 Anselmo/mcL [facility] Comment on above: trace Clarity, UA Clear [facility] Color, UA Yellow [facility] Glucose, UA Negative Negative - 2000(110) ++++ mg/dL [facility] Interpretation and review of laboratory results Abnormal [facility] Ketones, UA Negative Negative - 160(16) ++++ mg/dL [facility] Leukocytes, UA Trace Negative - 500+++ Monik/mcL [facility] Nitrite, UA Negative Negative - Positive [facility] pH, UA 6.5 5 - 9 [facility] Protein, UA Negative Negative - 2000(20) ++++ mg/dL [facility] Spec Grav, UA 1.025 1 - 1.03 [facility] Urobilinogen, UA 0.2 0.2 - 12 mg/dL [facility] Urology Office/Clinic Noteon 05-07-2024 Urology Office/Clinic Note Urology Office/Clinic Note Chief Complaint recurrent utis [facility] 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 Otherwise f/u PRN. Ordered: 95415 Measure Post Void residual urine and/or bladder capacity by US- non-imaging E&M of New Patient Moderate 45-59 Min 32856 Urnls Dip Stick Auto w/o Microscopy POC 04400 Follow-up With When Contact Information ZEYAD LEO, LEYDI E, URL Only if needed [address] [place] [address] [place] (1) Additional Instructions: Patient Education Antibiotic Medicine, [...] Protein Urine Dipstick: Trace (05/07/24 14:28:00) Specific [place] Urine Dipstick: >=1.030 (05/07/24 14:28:00) Urine Appearance Urine Dipstick: Clear (05/07/24 14:28:00) Urine Color Urine Dipstick: Yellow (05/07/24 14:28:00) Urobilinogen Urine Dipstick: Normal 0.2-1 EU/dl (05/07/24 14:28:00) pH Urine Dipstick: 7 (05/07/24 14:28:00) Normal [facility] Comment on above: Result Comment: Elec tronically Signed By: LEYDI JEFFERS PA-C\Magdybr\Date and Time Signed: 05/07/24 15:26 EST Urinalysis macro (dipstick) panel (U)on 04-21-2024 Bilirubin, UA Negative Negative - 4(70) +++ mg/dL [facility] Blood, UA Positive Negative - 50 Anselmo/mcL [facility] Clarity, UA Clear [facility] Color, UA Yellow [facility] Glucose, UA Negative Negative - 1999(110) ++++ mg/dL [facility] Interpretation and review of laboratory results Abnormal [facility] Ketones, UA Negative Negative - 160(16) ++++ mg/dL [facility] Leukocytes, UA Trace Negative - 500+++ Monik/mcL [facility] Nitrite, UA Negative Negative - Positive [facility] pH, UA 5.5 5 - 9 [facility] Protein, UA Negative Negative - 1999(20) ++++ mg/dL [facility] Spec Grav, UA 1.025 1 - 1.03 [facility] Urobilinogen, UA 1.0 0.2 - 12 mg/dL [facility] COLE Antinuclear Antibodieson 04-16-2024 Antinuclear Abs, IFA Positive Critically abnormal . [facility] Comment on above: Result Comment: Nega tive <1:80 Borderline 1:80 Positive >1:80 Performed By: #### C K #### [address] #### COLE #### [facility] , Note 1 Comment Normal . [facility] Comment on above: Result Comment: Kaleigh vasquez Potential Disease Association Homogeneous Systemic Lupus Erythematosus, Drug Induced Systemic Lupus Erythematosus, Chronic Autoimmune hepatitis, Juvenile Idiopathic Arthritis Speckled Sjogren Syndrome, Systemic Lupus Erythematosus, Subacute Cutaneous Lupus, Lupus, Congenital Heart Block, Mixed Connective Tissue Disease, Scleroderma-diffuse, Scleroderma-Autoimmune Myositis Overlap Syndrome, Systemic Lupus Gdibclptltoih-Kxscqkembpd-Afbzevjmpw Myositis Overlap Syndrome, Systemic Autoimmune Rheumatic Disease, [...] Cytopenias, Linear Scleroderma, Antiphospholipid Syndrome Performed at: [facility] [employer] [address] [id number] Ticketing Agent: Chiki Santoyo PhD, Phone: [phone] PERFORMED BY: [place] [address] PATHOLOGIST MOTOR VEHICLE ASSEMBLER BRAD LINDSEY M.D. Performed By: #### C K #### [address] #### COLE #### [facility] , Nuclear Dot Pattern 1:1280 High . [facility] Comment on above: Result Comment: ICAP nomenclature: AC-6,7 Performed By: #### C K #### [address] #### COLE #### [facility] , Speckled Pattern 1:320 High . [facility] Comment on above: Result Comment: Dens e Fine Speckled pattern is noted. This pattern suggests the presence of DFS70 antibody which has a low prevalence in systemic autoimmune rheumatic diseases. ICAP nomenclature: AC-2,4,5,29 Performed By: #### C K #### [facility] [address] [place] [address] #### COLE #### [facility] , Creatine kinase [Enzymatic a ctivity/volume] in Serum or PlasmaOrdered By: Igor Becerra on 04-16-2024 CK [Catalytic activity/Vol] 47 U/L Normal 30-223 [facility] Comment on above: Result Comment: PERF ORMED BY: [place] [address] PATHOLOGIST MOTOR VEHICLE ASSEMBLER BRAD LINDSEY M.D. Performed By: #### C K #### [facility] [address] [place] [address] #### COLE #### [facility] , HCG QUALITATIVE*on 4 [facility] , QUAL Negative NEGATIVE [facility] 03-10-2024 L Specimen: [id number] Received: 03/10/24 Status: ADRIANNE Cyr Num: [id number] Spec Type: Surgical Subm Dr: Janie Theodore DO Tissues: A Gallbladder (GALLBLADDER) Procedures: HE, Gross/Micro L3 Age/ Patient Sex Location Account Attending Physician Michelle Godinez 28/F [facility] [id number] Janie Theodore DO SPEC NUM: [id number] RECD: 03/10/24 STATUS: ADRIANNE CYR NUM: [id number] DOE: 03/10/[address]: Janie Theodore DO ENTERED: 03/10/24 [facility] DR: Peng Noyola SPEC TYPE: Surgical DEPT: FARHANA LOPEZ ENTERED BY: [id number] RECV BY: [id number] ORDERED: HE, Gross/Micro L3 ORDERED: HE, Gross/Micro [...] cystic duct is compacted with a calculus. Digital Photographic Printer sections are submitted in cassette A1. DM Specimen: [id number] Received: 03/10/24 Status: ADRIANNE Cyr Num: [id number] Spec Type: Surgical Subm Dr: Janie Theodore DO Tissues: A Gallbladder (GALLBLADDER) Procedures: Corky WILLIS/Jaquelin L3 Patient: Michelle Godinez [id number] (Continued) Specimen: [id number] Received: 03/10/24 (Continued) Signed (signature on file) Tlai Martinez MD 03/16/241921 Specimen: [id number] Received: 03/10/24 Status: ADRIANNE Choudharyrosalio Num: [id number] Spec Type: Surgical Subm Dr: Janie Theodore DO Tissues: A Gallbladder (GALLBLADDER) Procedures: Corky WILLIS/Jaquelin L3 Patient: Michelle Godinez [id number] (Continued) Specimen: [id number] Received: 03/10/24 (Continued) Microscopic Description Microscopic examinations are performed supporting the above interpretation CPT Codes 00866 Specimen: [id number] Received: 03/10/24 Status: ADRIANNE Cyr Num: [id number] Spec Type: Surgical Subm Dr: Janie Theodore DO Tissues: A Gallbladder (GALLBLADDER) Procedures: Corky WILLIS/Jaquelin L3 Patient: Michelle Godinez [id number] (Continued) Signed (signature on file) Tali Martinez MD 03/16/241921 Normal [facility] ALL CBC WITH AUTO DIFFon BASOPHILS ABSOLUTE AUTO 0.1 [facility] Basophils/100 WBC (Bld) 0.5 % 0.2 - 2.0 % [facility] Eosinophils/100 WBC (Bld) 1.8 % 0.9 - 7.0 % [facility] Erythrocyte distribution width (RBC) [Ratio] 15.2 % High 11.0 - 15.0 % [facility] Hematocrit (Bld) [Volume fraction] 28.8 % Low 36.0 - 48.0 % [facility] Hemoglobin (Bld) [Mass/Vol] 9.1 g/dL Low 12.0 - 16.0 g/dL [facility] IMMATURE GRANULOCYTES ABS AUTO 0.14 High [facility] Immature granulocytes/100 WBC (Bld) 1.1 % High 0.0 - 0.5 % [facility] Interpretation and review of laboratory results Abnormal [facility] LYMPHOCYTES ABSOLUTE AUTO 2.7 [facility] Lymphocytes/100 WBC (Bld) 20.5 % 20.5 - 60.0 % [facility] MCH (RBC) [Entitic mass] 27.2 pg 26.7 - 34.0 pg [facility] MCHC (RBC) [Mass/Vol] 31.6 g/dL 29.9 - 35.2 g/dL [facility] MCV (RBC) [Entitic vol] 86.0 fL 81.0 - 99.0 fL [facility] MONOCYTES ABSOLUTE AUTO 1.1 High [facility] Monocytes/100 WBC (Bld) 8.8 % 1.7 - 12.0 % [facility] NEUTROPHILS ABSOLUTE AUTO 8.8 High [facility] Neutrophils/100 WBC (Bld) 67.3 % 43.0 - 75.0 % [facility] Platelet mean volume (Bld) [Entitic vol] 9.6 fL 9.5 - 13.5 fL [facility] TBH EO # 0.2 [facility] TB PLT [address] [facility] RBC 3.35 Low [facility] WBC 13.0 High [facility] WITH [facility]ATELET NO DI FFERENTIALon 02-06-2024 Erythrocyte distribution width (RBC) [Ratio] 15.2 % High 11.0 - 15.0 % [facility] Hematocrit (Bld) [Volume fraction] 31.2 % Low 36.0 - 48.0 % [facility] Hemoglobin (Bld) [Mass/Vol] 9.8 g/dL Low 12.0 - 16.0 g/dL [facility] Interpretation and review of laboratory results Abnormal [facility] MCH (RBC) [Entitic mass] 27.3 pg 26.7 - 34.0 pg [facility] MCHC (RBC) [Mass/Vol] 31.4 g/dL 29.9 - 35.2 g/dL [facility] MCV (RBC) [Entitic vol] 86.9 fL 81.0 - 99.0 fL [facility] Platelet mean volume (Bld) [Entitic vol] 9.6 fL 9.5 - 13.5 fL [facility] PLT 342 [facility] TB RBC 3.59 Low [facility] TB WBC 10.7 [facility] ALL CBC WITH AUTO DIFFon BASOPHILS ABSOLUTE AUTO 0.1 [facility] Basophils/100 WBC (Bld) 0.7 % 0.2 - 2.0 % [facility] Eosinophils/100 WBC (Bld) 2.6 % 0.9 - 7.0 % [facility] Erythrocyte distribution width (RBC) [Ratio] 13.4 % 11.0 - 15.0 % [facility] Hematocrit (Bld) [Volume fraction] 39.0 % 36.0 - 48.0 % [facility] Hemoglobin (Bld) [Mass/Vol] 12.8 g/dL 12.0 - 16.0 g/dL [facility] IMMATURE GRANULOCYTES ABS AUTO 0.01 [facility] Immature granulocytes/100 WBC (Bld) 0.1 % 0.0 - 0.5 % [facility] LYMPHOCYTES ABSOLUTE AUTO 2.2 [facility] Lymphocytes/100 WBC (Bld) 26.1 % 20.5 - 60.0 % [facility] MCH (RBC) [Entitic mass] 28.6 pg 26.7 - 34.0 pg [facility] MCHC (RBC) [Mass/Vol] 32.8 g/dL 29.9 - 35.2 g/dL [facility] MCV (RBC) [Entitic vol] 87.2 fL 81.0 - 99.0 fL [facility] MONOCYTES ABSOLUTE AUTO 0.5 [facility] Monocytes/100 WBC (Bld) 5.7 % 1.7 - 12.0 % [facility] NEUTROPHILS ABSOLUTE AUTO 5.5 [facility] Neutrophils/100 WBC (Bld) 64.8 % 43.0 - 75.0 % [facility] Platelet mean volume (Bld) [Entitic vol] 10.1 fL 9.5 - 13.5 fL [facility] TBH EO # 0.2 [facility] PLT 340 [facility] RBC 4.47 [facility] WBC 8.4 [facility] HCG ( test) Ql (U)o n 02-02-2024 Interpretation and review of laboratory results Abnormal [facility] Preg Test, Ur Positive [facility] Urinalysis macro (dipstick) panel (U)on 07-19-2023 Bilirubin, UA Negative Negative - 4(70) +++ mg/dL [facility] Blood, UA Positive Negative - 50 Anselmo/mcL [facility] Comment on above: moderate Clarity, UA Clear [facility] Color, UA Converse [facility] Glucose, UA Negative Negative - 2000(110) ++++ mg/dL [facility] Interpretation and review of laboratory results Abnormal [facility] Ketones, UA Positive Negative - 160(16) ++++ mg/dL [facility] Comment on above: trace Leukocytes, UA Positive Negative - 500+++ Monik/mcL [facility] Comment on above: small Nitrite, UA Negative Negative - Positive [facility] pH, UA 6.0 5 - 9 [facility] Protein, UA Positive Negative - 2000(20) ++++ mg/dL [facility] Comment on above: 30 Spec Grav, UA 1.030 1 - 1.03 [facility] Urobilinogen, UA 1.0 0.2 - 12 mg/dL [facility] CBC AUTO DIFFon 07-30-2022 BASO # 0.1 103/ul Normal 0.0-0.1 [facility] [place] Comment on above: Performed By: #### U RCX #### [facility] [address] [place] [address] Dr. Caitlin Martinez Basophils/100 WBC (Bld) 1.1 % Normal 0.2-2.0 [facility] Comment on above: Performed By: #### U RCX #### [facility] [address] [place] [address] Dr. Caitlin Martinez EO # 0.3 103/ul Normal 0.0-0.7 [facility] Comment on above: Performed By: #### U RCX #### [facility] [address] [place] [address] Dr. Caitlin Martinez Eosinophils/100 WBC (Bld) 4.7 % Normal 0.9-7.0 [facility] Comment on above: Performed By: #### U RCX #### [facility] [address] [place] [address] Dr. Caitlin Martinez Erythrocyte distribution width (RBC) [Ratio] 14.7 % Normal 11.0-15.0 [facility] Comment on above: Performed By: #### U RCX #### [facility] [address] [place] [address] Dr. Caitlin Martinez Hematocrit (Bld) [Volume fraction] 39.3 % Normal 36.0-48.0 [facility] Comment on above: Performed By: #### U RCX #### [facility] [address] [place] [address] Dr. Caitlin Martinez Hemoglobin (Bld) [Mass/Vol] 12.7 g/dL Normal 12.0-16.0 [facility] Comment on above: Performed By: #### U RCX #### [facility] [address] [place] [address] Dr. Caitlin Martinez IG # 0.02 10e3/ul Normal 0.00-0.03 [facility] [place] Comment on above: Performed By: #### U RCX #### [facility] [address] [place] [address] Dr. Caitlin Martinez IG % 0.3 % Normal 0.0-0.5 [facility] [place] Comment on above: Performed By: #### U RCX #### [facility] [address] [place] [address] Dr. Caitlin Martinez LYMPH # 2.5 103/ul Normal 1.2-3.8 [facility] Comment on above: Performed By: #### U RCX #### [facility] [address] [place] [address] Dr. Caitlin Martinez Lymphocytes/100 WBC (Bld) 34.5 % Normal 20.5-60.0 [facility] Comment on above: Performed By: #### U RCX #### [facility] [address] [place] [address] Dr. Caitlin Martinez MANUAL DIFF REQ NO Normal [facility] Comment on above: Performed By: #### U RCX #### [facility] [address] [place] [address] Dr. Caitlin Martinez MCH (RBC) [Entitic mass] 27.3 pg Normal 26.7-34.0 [facility] Comment on above: Performed By: #### U RCX #### [facility] [address] [address] [address] Caitlin Martinez MCHC (RBC) [Mass/Vol] 32.3 g/dL Normal 29.9-35.2 [facility] Comment on above: Performed By: #### U RCX #### [facility] [address] [address] [address] Caitlin Martinez MCV (RBC) [Entitic vol] 84.5 fL Normal 81.0-99.0 [facility] Comment on above: Performed By: #### U RCX #### [facility] [address] [place] [address] Dr. Caitlin Martinez MONO # 0.5 103/ul Normal 0.3-0.8 [facility] [place] Comment on above: Performed By: #### U RCX #### [facility] [address] [place] [address] Dr. Caitlin Martinez Monocytes/100 WBC (Bld) 7.3 % Normal 1.7-12.0 [facility] Comment on above: Performed By: #### U RCX #### [facility] [address] [place] [address] Dr. Caitlin Martinez NEUT # 3.8 103/ul Normal 1.4-6.5 [facility] [place] Comment on above: Performed By: #### U RCX #### [facility] [address] [place] [address] Dr. Caitlin Martinez Neutrophils/100 WBC (Bld) 52.1 % Normal 43.0-75.0 [facility] [place] Comment on above: Performed By: #### U RCX #### [facility] [address] [place] [address] Dr. Caitlin Martinez Platelet mean volume (Bld) [Entitic vol] 9.0 fL Critically low 9.5-13.5 [facility] Comment on above: Performed By: #### U RCX #### [facility] [address] [address] [address] Caitlin Martinez PLT 368 103/ul Normal 150-450 [facility] Comment on above: Performed By: #### U RCX #### [facility] [address] [place] [address] Dr. Caitlin Martinez RBC 4.65 106/ul Normal 4.20-5.40 [facility] [place] Comment on above: Performed By: #### U RCX #### [facility] [address] [address] [address] Caitlin Martinez WBC 7.2 103/ul Normal 4.0-11.0 [facility] Comment on above: Performed By: #### U RCX #### [facility] [address] [place] [address] Dr. Caitlin Martinez IRONon 07-30-2022 Iron [Mass/Vol] 43.0 ug/dL Critically low 50.0-170.0 [facility] Comment on above: Performed By: #### U RCX #### [facility] [address] [place] [address] Dr. Caitlin Martinez PAP ACOG PANEL 2: 21 to 29on 07-30-2022 . . Normal [facility] Comment on above: Performed By: #### U RCX #### [facility] [address] [place] [address] Dr. Caitlin Martinez Age Gdln ACOG Testing 21-29 Normal [facility] Comment on above: Performed By: #### U RCX #### [facility] [address] [place] [address] Dr. Caitlin Martinez DIAGNOSIS: Comment Normal [facility] Comment on above: Result Comment: NEGA TIVE FOR INTRAEPITHELIAL LESION OR MALIGNANCY. Performed By: #### U RCX #### [facility] [address] [place] [address] Dr. Caitlin Martinez Methodology: Comment Normal [facility] Comment on above: Result Comment: This liquid based ThinPrep(R) pap test was screened with the use of an image guided system. Performed By: #### U RCX #### [facility] [address] [place] [address] Dr. Caitlin Martinez Note: Comment Normal [facility] Comment on above: Result Comment: The Pap smear is a screening test designed to aid in the detection of premalignant and malignant conditions of the uterine cervix. It is not a diagnostic procedure and should not be used as the sole means of detecting cervical cancer. Both false-positive and false-negative reports do occur. . Performed By: #### U RCX #### [facility] [address] [address] [address] Caitlin Martinez Performed by: Comment Normal [facility] Comment on above: Result Comment: Bhavna Cormier, [employer] Adf Developer (ASCP) Performed By: #### U RCX #### [facility] [address] [place] [address] Dr. Caitlin Martinez Reflex Criteria: Comment Normal [facility] Comment on above: Result Comment: The HPV DNA reflex criteria were not met with this specimen result therefore, no HPV testing was performed. . Performed By: #### U RCX #### [facility] [address] [place] [address] Dr. Caitlin Martinez Specimen adequacy: Comment Normal [facility] Comment on above: Result Comment: Sati sfactory for evaluation. Endocervical and/or squamous metaplastic cells (endocervical component) are present. Performed By: #### U RCX #### [facility] [address] [place] [address] Dr. Caitlin Martinez INSULINon 04-19-2022 Insulin 9.1 uIU/mL Normal 2.6-24.9 [facility] Comment on above: Performed By: #### I HORACIO #### [facility] [address] [place] [address] Dr. Caitlin Martinez CBC AUTO DIFFon 04-18-2022 BASO # 0.1 103/ul Normal 0.0-0.1 [facility] Comment on above: Performed By: #### U RCX #### [facility] [address] [place] [address] Dr. Caitlin Martinez Basophils/100 WBC (Bld) 1.0 % Normal 0.2-2.0 [facility] Comment on above: Performed By: #### U RCX #### [facility] [address] [place] [address] Dr. Caitlin Martinez EO # 0.3 103/ul Normal 0.0-0.7 [facility] Comment on above: Performed By: #### U RCX #### [facility] [address] [place] [address] Dr. Caitlin Martinez Eosinophils/100 WBC (Bld) 4.1 % Normal 0.9-7.0 [facility] Comment on above: Performed By: #### U RCX #### [facility] [address] [place] [address] Dr. Caitlin Martinez Erythrocyte distribution width (RBC) [Ratio] 16.0 % Critically high 11.0-15.0 [facility] Comment on above: Performed By: #### U RCX #### [facility] [address] [place] [address] Dr. Caitlin Martinez Hematocrit (Bld) [Volume fraction] 35.7 % Critically low 36.0-48.0 [facility] Comment on above: Performed By: #### U RCX #### [facility] [address] [place] [address] Dr. Caitlin Martinez Hemoglobin (Bld) [Mass/Vol] 10.9 g/dL Critically low 12.0-16.0 [facility] Comment on above: Performed By: #### U RCX #### [facility] [address] [place] [address] Dr. Caitlin Martinez IG # 0.07 10e3/ul Critically high 0.00-0.03 [facility] Comment on above: Performed By: #### U RCX #### [facility] [address] [place] [address] Dr. Caitlin Martinez IG % 1.0 % Critically high 0.0-0.5 [facility] Comment on above: Performed By: #### U RCX #### [facility] [address] [place] [address] Dr. Caitlin Martinez LYMPH # 2.3 103/ul Normal 1.2-3.8 [facility] Comment on above: Performed By: #### U RCX #### [facility] [address] [place] [address] Dr. Caitlin Martinez Lymphocytes/100 WBC (Bld) 31.4 % Normal 20.5-60.0 [facility] Comment on above: Performed By: #### U RCX #### [facility] [address] [place] [address] Dr. Caitlin Martinez MANUAL DIFF REQ NO Normal [facility] Comment on above: Performed By: #### U RCX #### [facility] [address] [place] [address] Dr. Caitlin Martinez MCH (RBC) [Entitic mass] 24.8 pg Critically low 26.7-34.0 [facility] Comment on above: Performed By: #### U RCX #### [facility] [address] [place] [address] Dr. Caitlin Martinez MCHC (RBC) [Mass/Vol] 30.5 g/dL Normal 29.9-35.2 [facility] Comment on above: Performed By: #### U RCX #### [facility] [address] [place] [address] Dr. Caitlin Martinez MCV (RBC) [Entitic vol] 81.1 fL Normal 81.0-99.0 [facility] Comment on above: Performed By: #### U RCX #### [facility] [address] [place] [address] Dr. Caitlin Martinez MONO # 0.5 103/ul Normal 0.3-0.8 [facility] Comment on above: Performed By: #### U RCX #### [facility] [address] [place] [address] Dr. Caitlin Martinez Monocytes/100 WBC (Bld) 6.6 % Normal 1.7-12.0 [facility] Comment on above: Performed By: #### U RCX #### [facility] [address] [place] [address] Dr. Caitlin Martinez NEUT # 4.1 103/ul Normal 1.4-6.5 [facility] Comment on above: Performed By: #### U RCX #### [facility] [address] [place] [address] Dr. Caitlin Martinez Neutrophils/100 WBC (Bld) 55.9 % Normal 43.0-75.0 [facility] Comment on above: Performed By: #### U RCX #### [facility] [address] [place] [address] Dr. Caitlin Martinez Platelet mean volume (Bld) [Entitic vol] 9.4 fL Critically low 9.5-13.5 [facility] Comment on above: Performed By: #### U RCX #### [facility] [address] [place] [address] Dr. Caitlin Martinez PLT 369 103/ul Normal 150-450 [facility] Comment on above: Performed By: #### U RCX #### [facility] [address] [place] [address] Dr. Caitlin Maritnez RBC 4.40 106/ul Normal 4.20-5.40 [facility] Comment on above: Performed By: #### U RCX #### [facility] [address] [place] [address] Dr. Caitlin Martinez WBC 7.3 103/ul Normal 4.0-11.0 [facility] Comment on above: Performed By: #### U RCX #### [facility] [address] [place] [address] Dr. Caitlin Martinez FREE THYROXINE INDEX T7on FTI 2.20 Normal 1.30-4.50 [facility] Comment on above: Performed By: #### I HORACIO #### [facility] [address] [place] [address] Dr. Caitlin Martinez T3U 29.0 % Critically low 30.0-39.0 [facility] Comment on above: Performed By: #### I HORACIO #### [facility] [address] [place] [address] Dr. Caitlin Martinez T4 [Mass/Vol] 7.60 ug/dL Normal 4.80-13.90 [facility] Comment on above: Performed By: #### I HORACIO #### [facility] [address] [address] [address] Caitlin Martinez GLYCOHEMOGLOBIN A1Con 2021 ADA RECOMMENDATION SEE BELOW Normal [facility] Comment on above: Result Comment: ADA RECOMMENDED LIMIT 4.0 - 6.0 ADA THERAPEUTIC TARGET < 7.0 ACTION SUGGESTED > 7.0 Performed By: #### U RCX #### [facility] [address] [address] [address] Caitlin Martinez Glucose [Mass/Vol] 97 mg/dL Normal [facility] Comment on above: Performed By: #### U RCX #### [facility] [address] [place] [address] Dr. Caitlin Martinez HbA1c (Bld) [Mass fraction] 5.0 % Normal 4.5-6.2 [facility] Comment on above: Performed By: #### U RCX #### [facility] [address] [place] [address] Dr. Caitlin Martinez IRONon 04-18-2022 Iron [Mass/Vol] 35.0 ug/dL Critically low 50.0-170.0 [facility] Comment on above: Performed By: #### I HORACIO #### [facility] [address] [place] [address] Dr. Caitlin Martinez LIPID PROFILEon 04-18-2022 CHOL-HDL RATIO NORM SEE BELOW Normal [facility] Comment on above: Result Comment: 3.3 - 4.4 LOW RISK 4.4 - 7.1 AVERAGE RISK 7.1 - 11.0 MODERATE RISK >11.0 HIGH RISK Performed By: #### I HORACIO #### [facility] [address] [place] [address] Dr. Caitlin Martinez Cholesterol [Mass/Vol] 221 mg/dL Critically high <=200 [facility] Comment on above: Performed By: #### I HORACIO #### [facility] [address] [place] [address] Dr. Caitlin Martinez Cholesterol in HDL [Mass/Vol] 67 mg/dL Critically high 40-60 [facility] Comment on above: Performed By: #### I HORACIO #### [facility] [address] [address] [address] Caitlin Martinez Cholesterol in LDL [Mass/Vol] 142.4 mg/dL Normal [facility] Comment on above: Performed By: #### I HORACIO #### [facility] [address] [address] [address] Caitlin Martinez Cholesterol.total/Geeta sterol in HDL [Mass ratio] 3.3 {ratio} Normal [facility] [place] Comment on above: Performed By: #### I HORACIO #### [facility] [address] [address] [address] Caitlin Martinez HDL NORMAL > or = 60 mg/dl - LOW CARDIOVASCULAR RISK <40 mg/dl - HIGH CARDIOVASCULAR RISK Normal [facility] [place] Comment on above: Performed By: #### I HORACIO #### [facility] [address] [place] [address] Dr. Caitlin Martinez LDL CALC NORMAL SEE BELOW Normal [facility] Comment on above: Result Comment: <100 mg/dl OPTIMAL 100 - 129 mg/dl NEAR OR ABOVE OPTIMAL 130 - 159 mg/dl BORDERLINE HIGH 160 - 189 mg/dl HIGH >190 mg/dl VERY HIGH Performed By: #### I HORACIO #### [facility] [address] [place] [address] Dr. Caitlin Martinez Triglyceride [Mass/Vol] 58 mg/dL Normal <=150 T [facility] Comment on above: Performed By: #### I HORACIO #### [facility] [address] [place] [address] Dr. Caitlin Martinez VLDL CALC 11.6 mg/dL Normal [facility] [place] Comment on above: Performed By: #### I HORACIO #### [facility] [address] [place] [address] Dr. Caitlin Martinez PROF 14(COMP METB)on 022 Albumin [Mass/Vol] 3.8 g/dL Normal 3.4-5.0 [facility] Comment on above: Performed By: #### I HORACIO #### [facility] [address] [place] [address] Dr. Caitlin Martinez Albumin/Globulin [Mass ratio] 1.1 {ratio} Normal [facility] [place] Comment on above: Performed By: #### I HORACIO #### [facility] [address] [place] [address] Dr. Caitlin Martinez ALP [Catalytic activity/Vol] 132 U/L Critically high 46-116 [facility] [place] Comment on above: Performed By: #### I HORACIO #### [facility] [address] [place] [address] Dr. Caitlin Martinez ALT [Catalytic activity/Vol] 55 U/L Normal 14-59 [facility] [place] Comment on above: Performed By: #### I HORACIO #### [facility] [address] [place] [address] Dr. Caitlin Martinez Anion gap [Moles/Vol] 12.6 mmol/L Normal [facility] Comment on above: Performed By: #### I HORACIO #### [facility] [address] [place] [address] Dr. Caitlin Martinez AST [Catalytic activity/Vol] 27 U/L Normal 15-37 [facility] [place] Comment on above: Performed By: #### I HORACIO #### [facility] [address] [place] [address] Dr. Caitlin Martinez Bilirubin [Mass/Vol] 0.6 mg/dL Normal 0.2-1.0 [facility] [place] Comment on above: Performed By: #### I HORACIO #### [facility] [address] [place] [address] Dr. Caitlin Martinez Calcium [Mass/Vol] 9.1 mg/dL Normal 8.5-10.1 [facility] Comment on above: Performed By: #### I HORACIO #### [facility] [address] [place] [address] Dr. Caitlin Martinez Chloride [Moles/Vol] 106 mmol/L Normal 98-107 [facility] [place] Comment on above: Performed By: #### I HORACIO #### [facility] [address] [place] [address] Dr. Caitlin Martinez CO2 [Moles/Vol] 26.5 mmol/L Normal 21.0-32.0 [facility] Comment on above: Performed By: #### I HORACIO #### [facility] [address] [place] [address] Dr. Caitlin Martinez Creatinine [Mass/Vol] 0.63 mg/dL Normal 0.55-1.02 [facility] [place] Comment on above: Performed By: #### I HORACIO #### [facility] [address] [place] [address] Dr. Caitlin Martinez EGFR-AF S[place] >60 Normal >=60 [facility] Comment on above: Performed By: #### I HORACIO #### [facility] [address] [place] [address] Dr. Caitlin Martinez EGFR-NON AF [place] >60 Normal >=60 [facility] [place] Comment on above: Performed By: #### I HORACIO #### [facility] [address] [place] [address] Dr. Caitlin Martinez Globulin (S) [Mass/Vol] 3.6 g/dL Normal [facility] Comment on above: Performed By: #### I HORACIO #### [facility] [address] [place] [address] Dr. Caitlin Martinez Glucose [Mass/Vol] 98 mg/dL Normal 74-106 [facility] Comment on above: Performed By: #### I HORACIO #### [facility] [address] [place] [address] Dr. Caitlin Martinez Potassium [Moles/Vol] 4.1 mmol/L Normal 3.5-5.1 [facility] Comment on above: Performed By: #### I HORACIO #### [facility] [address] [place] [address] Dr. Caitlin Martinez Protein [Mass/Vol] 7.4 g/dL Normal 6.4-8.2 [facility] Comment on above: Performed By: #### I HORACIO #### [facility] [address] [place] [address] Dr. Caitlin Martinez Sodium [Moles/Vol] 141 mmol/L Normal 136-145 [facility] Comment on above: Performed By: #### I HORACIO #### [facility] [address] [address] [address] Caitlin Martinez Urea nitrogen [Mass/Vol] 9.0 mg/dL Normal 7.0-18.0 [facility] [place] Comment on above: Performed By: #### I HORACIO #### [facility] [address] [address] [address] Caitlin Martinez Urea nitrogen/Creatinine [Mass ratio] 14.3 mg/mg Normal [facility] [place] Comment on above: Performed By: #### I HORACIO #### [facility] [address] [address] [address] Caitlin Martinez TSHon 04-18-2022 TSH 1.349 uIU/mL Normal 0.358-3.740 [facility] Comment on above: Performed By: #### I HORACIO #### [facility] [address] [place] [address] Dr. Caitlin Martinez ANTIBODY ID PANELon 02-15-20 ANTIBODY ID PANEL Antibody ID Anti-D Blood Bank Notes most likely due to Rhogam given on 12/01/21 Normal [facility] [place] Comment on above: Performed By: #### D IRCMB, ABID #### [facility] [address] [place] [address] Dr. Caitlin Martinez CTA CHEST WO W [...] PILAR WHEELER Date: 2022-02-10 22:55 Normal [facility] CBC AUTO DIFFon 02-10-2022 BASO # 0.1 103/ul Normal 0.0-0.1 [facility] [place] Comment on above: Performed By: #### C BC #### [facility] [address] [address] [address] Caitlin Martinez Basophils/100 WBC (Bld) 0.4 % Normal 0.2-2.0 [facility] Comment on above: Performed By: #### C BC #### [facility] [address] [address] [address] Caitlin Martinez EO # 0.5 103/ul Normal 0.0-0.7 [facility] [place] Comment on above: Performed By: #### C BC #### [facility] [address] [place] [address] Dr. Caitlin Martinez Eosinophils/100 WBC (Bld) 4.2 % Normal 0.9-7.0 [facility] [place] Comment on above: Performed By: #### C BC #### [facility] [address] [address] [address] Caitlin Martinez Erythrocyte distribution width (RBC) [Ratio] 14.7 % Normal 11.0-15.0 [facility] [place] Comment on above: Performed By: #### C BC #### [facility] [address] [place] [address] Dr. Caitlin Martinez Hematocrit (Bld) [Volume fraction] 31.1 % Critically low 36.0-48.0 [facility] [place] Comment on above: Performed By: #### C BC #### [facility] [address] [address] [address] Caitlin Martinez Hemoglobin (Bld) [Mass/Vol] 9.6 g/dL Critically low 12.0-16.0 [facility] [place] Comment on above: Performed By: #### C BC #### [facility] [address] [place] [address] Dr. Caitlin Martinez IG # 0.28 10e3/ul Critically high 0.00-0.03 [facility] Comment on above: Performed By: #### C BC #### [facility] [address] [place] [address] Dr. Caitlin Martinez IG % 2.3 % Critically high 0.0-0.5 [facility] Comment on above: Performed By: #### C BC #### [facility] [address] [place] [address] Dr. Caitlin Martinez LYMPH # 3.3 103/ul Normal 1.2-3.8 [facility] [place] Comment on above: Performed By: #### C BC #### [facility] [address] [place] [address] Dr. Caitlin Martinez Lymphocytes/100 WBC (Bld) 26.9 % Normal 20.5-60.0 [facility] [place] Comment on above: Performed By: #### C BC #### [facility] [address] [place] [address] Dr. Caitlin Martinez MANUAL DIFF REQ NO Normal [facility] Comment on above: Performed By: #### C BC #### [facility] [address] [place] [address] Dr. Caitlin Martinez MCH (RBC) [Entitic mass] 26.2 pg Critically low 26.7-34.0 [facility] [place] Comment on above: Performed By: #### C BC #### [facility] [address] [place] [address] Dr. Caitlin Martinez MCHC (RBC) [Mass/Vol] 30.9 g/dL Normal 29.9-35.2 [facility] [place] Comment on above: Performed By: #### C BC #### [facility] [address] [place] [address] Dr. Caitlin Martinez MCV (RBC) [Entitic vol] 84.7 fL Normal 81.0-99.0 [facility] Comment on above: Performed By: #### C BC #### [facility] [address] [place] [address] Dr. Caitlin Martinez MONO # 1.1 103/ul Critically high 0.3-0.8 [facility] Comment on above: Performed By: #### C BC #### [facility] [address] [address] [address] Caitlin Martinez Monocytes/100 WBC (Bld) 8.7 % Normal 1.7-12.0 [facility] Comment on above: Performed By: #### C BC #### [facility] [address] [address] [address] Caitlin Martinez NEUT # 7.0 103/ul Critically high 1.4-6.5 [facility] Comment on above: Performed By: #### C BC #### [facility] [address] [address] [address] Caitlin Martinez Neutrophils/100 WBC (Bld) 57.5 % Normal 43.0-75.0 [facility] [place] Comment on above: Performed By: #### C BC #### [facility] [address] [place] [address] Dr. Caitlin Martinez Platelet mean volume (Bld) [Entitic vol] 9.1 fL Critically low 9.5-13.5 [facility] [place] Comment on above: Performed By: #### C BC #### [facility] [address] [place] [address] Dr. Caitlin Martinez PLT 437 103/ul Normal 150-450 [facility] [place] Comment on above: Performed By: #### C BC #### [facility] [address] [place] [address] Dr. Caitlin Martinez RBC 3.67 106/ul Critically low 4.20-5.40 [facility] Comment on above: Performed By: #### C BC #### [facility] [address] [place] [address] Dr. Caitlin Martinez WBC 12.3 103/ul Critically high 4.0-11.0 [facility] Comment on above: Performed By: #### C BC #### [facility] [address] [place] [address] Dr. Caitlin Martinez Covid-19 PCR (CVDTB)on 01-16 SARS-CoV-2 (COVID-19) RNA JONATAN+probe Ql (Unsp spec) Not detected Normal NOT DETECTED [facility] Comment on above: Result Comment: When [...] for this test is supported by the Rail [employer] of Health and Human Service's declaration that [...] Performed By: #### C VDTBH #### [facility] [address] [place] [address] Dr. Caitlin Martinez PROF 14(COMP METB)on 022 Albumin [Mass/Vol] 2.1 g/dL Critically low 3.4-5.0 [facility] Comment on above: Performed By: #### U RCX #### [facility] [address] [place] [address] Dr. Caitlin Martinez Albumin/Globulin [Mass ratio] 0.5 {ratio} Normal [facility] [place] Comment on above: Performed By: #### U RCX #### [facility] [address] [place] [address] Dr. Caitlin Martinez ALP [Catalytic activity/Vol] 202 U/L Critically high 46-116 [facility] [place] Comment on above: Performed By: #### U RCX #### [facility] [address] [place] [address] Dr. Caitlin Martinez ALT [Catalytic activity/Vol] 20 U/L Normal 14-59 [facility] [place] Comment on above: Performed By: #### U RCX #### [facility] [address] [place] [address] Dr. Caitlin Martinez Anion gap [Moles/Vol] 11.6 mmol/L Normal [facility] Comment on above: Performed By: #### U RCX #### [facility] [address] [address] [address] Caitlin Martinez AST [Catalytic activity/Vol] 17 U/L Normal 15-37 [facility] [place] Comment on above: Performed By: #### U RCX #### [facility] [address] [address] [address] Caitlin Martinez Bilirubin [Mass/Vol] 0.3 mg/dL Normal 0.2-1.0 [facility] [place] Comment on above: Performed By: #### U RCX #### [facility] [address] [place] [address] Dr. Caitlin Martinez Calcium [Mass/Vol] 9.2 mg/dL Normal 8.5-10.1 [facility] Comment on above: Performed By: #### U RCX #### [facility] [address] [place] [address] Dr. Caitlin Martinez Chloride [Moles/Vol] 104 mmol/L Normal 98-107 [facility] [place] Comment on above: Performed By: #### U RCX #### [facility] [address] [place] [address] Dr. Caitlin Martinez CO2 [Moles/Vol] 26.9 mmol/L Normal 21.0-32.0 [facility] Comment on above: Performed By: #### U RCX #### [facility] [address] [place] [address] Dr. Caitlin Martinez Creatinine [Mass/Vol] 0.56 mg/dL Normal 0.55-1.02 [facility] [place] Comment on above: Performed By: #### U RCX #### [facility] [address] [place] [address] Dr. Caitlin Martinez EGFR-AF [place] >60 Normal >=60 [facility] Comment on above: Performed By: #### U RCX #### [facility] [address] [place] [address] Dr. Caitlin Martinez EGFR-NON AF [place] >60 Normal >=60 [facility] [place] Comment on above: Performed By: #### U RCX #### [facility] [address] [address] [address] Caitlin Martinez Globulin (S) [Mass/Vol] 4.4 g/dL Normal [facility] Comment on above: Performed By: #### U RCX #### [facility] [address] [address] [address] Caitlin Martinez Glucose [Mass/Vol] 108 mg/dL Critically high 74-106 [facility] Comment on above: Performed By: #### U RCX #### [facility] [address] [address] [address] Caitlin Martinez Potassium [Moles/Vol] 3.5 mmol/L Normal 3.5-5.1 [facility] [place] Comment on above: Performed By: #### U RCX #### [facility] [address] [address] [address] Caitlin Martinez Protein [Mass/Vol] 6.5 g/dL Normal 6.4-8.2 [facility] Comment on above: Performed By: #### U RCX #### [facility] [address] [address] [address] Caitlin Martinez Sodium [Moles/Vol] 139 mmol/L Normal 136-145 [facility] Comment on above: Performed By: #### U RCX #### [facility] [address] [address] [address] Caitlin Martinez Urea nitrogen [Mass/Vol] 7.0 mg/dL Normal 7.0-18.0 [facility] [place] Comment on above: Performed By: #### U RCX #### [facility] [address] [address] [address] Caitlin Martinez Urea nitrogen/Creatinine [Mass ratio] 12.5 mg/mg Normal [facility] [place] Comment on above: Performed By: #### U RCX #### [facility] [address] [address] [address] Caitlin Martinez TROPONIN, HIGH SENSITIVITYon 02-10-2022 HSTROP <4.0 Normal 4.0-51.3 [facility] [place] Comment on above: Result Comment: CUT- OFF POINTS HAVE BEEN ESTABLISHED BASED ON THE FOURTH UNIVERSAL DEFINITIONS OF MYOCARDIAL INFARCTION. THE UPPER REFERENCE LIMIT (URL) OF TROPONIN, DEFINED THE 99TH PERCENTILE OF cTnI DISTRIBUTION IN A REFERENCE POPULATION, HAS BEEN CONFIRMED THE DECISION THRESHOLD FOR CO DIAGNOSIS. Performed By: #### U RCX #### [facility] [address] [place] [address] Dr. Caitlin Martinez CBC AUTO DIFFon 02-09-2022 BASO # 0.1 103/ul Normal 0.0-0.1 [facility] [place] Comment on above: Performed By: #### U RCX #### [facility] [address] [place] [address] Dr. Caitlin Martinez Basophils/100 WBC (Bld) 0.6 % Normal 0.2-2.0 [facility] Comment on above: Performed By: #### U RCX #### [facility] [address] [place] [address] Dr. Caitlin Martinez EO # 0.3 103/ul Normal 0.0-0.7 [facility] [place] Comment on above: Performed By: #### U RCX #### [facility] [address] [place] [address] Dr. Caitlin Martinez Eosinophils/100 WBC (Bld) 2.3 % Normal 0.9-7.0 [facility] [place] Comment on above: Performed By: #### U RCX #### [facility] [address] [place] [address] Dr. Caitlin Martinez Erythrocyte distribution width (RBC) [Ratio] 14.6 % Normal 11.0-15.0 [facility] [place] Comment on above: Performed By: #### U RCX #### [facility] [address] [place] [address] Dr. Caitlin Martinez Hematocrit (Bld) [Volume fraction] 28.8 % Critically low 36.0-48.0 [facility] [place] Comment on above: Performed By: #### U RCX #### [facility] [address] [place] [address] Dr. Caitlin Martinez Hemoglobin (Bld) [Mass/Vol] 9.0 g/dL Critically low 12.0-16.0 [facility] [place] Comment on above: Performed By: #### U RCX #### [facility] [address] [place] [address] Dr. Caitlin Martinez IG # 0.20 10e3/ul Critically high 0.00-0.03 [facility] Comment on above: Performed By: #### U RCX #### [facility] [address] [place] [address] Dr. Caitlin Martinez IG % 1.5 % Critically high 0.0-0.5 [facility] Comment on above: Performed By: #### U RCX #### [facility] [address] [place] [address] Dr. Caitlin Martinez LYMPH # 3.0 103/ul Normal 1.2-3.8 [facility] [place] Comment on above: Performed By: #### U RCX #### [facility] [address] [place] [address] Dr. Caitlin Martinez Lymphocytes/100 WBC (Bld) 22.2 % Normal 20.5-60.0 [facility] [place] Comment on above: Performed By: #### U RCX #### [facility] [address] [place] [address] Dr. Caitlin Martinez MANUAL DIFF REQ NO Normal [facility] Comment on above: Performed By: #### U RCX #### [facility] [address] [place] [address] Dr. Caitlin Martinez MCH (RBC) [Entitic mass] 26.2 pg Critically low 26.7-34.0 [facility] [place] Comment on above: Performed By: #### U RCX #### [facility] [address] [place] [address] Dr. Caitlin Martinez MCHC (RBC) [Mass/Vol] 31.3 g/dL Normal 29.9-35.2 [facility] [place] Comment on above: Performed By: #### U RCX #### [facility] [address] [place] [address] Dr. Caitlin Martinez MCV (RBC) [Entitic vol] 83.7 fL Normal 81.0-99.0 [facility] Comment on above: Performed By: #### U RCX #### [facility] [address] [place] [address] Dr. Caitlin Martinez MONO # 1.3 103/ul Critically high 0.3-0.8 [facility] Comment on above: Performed By: #### U RCX #### [facility] [address] [place] [address] Dr. Caitlin Martinez Monocytes/100 WBC (Bld) 9.8 % Normal 1.7-12.0 [facility] Comment on above: Performed By: #### U RCX #### [facility] [address] [place] [address] Dr. Caitlin Martinez NEUT # 8.5 103/ul Critically high 1.4-6.5 [facility] Comment on above: Performed By: #### U RCX #### [facility] [address] [place] [address] Dr. Caitlin Martinez Neutrophils/100 WBC (Bld) 63.6 % Normal 43.0-75.0 [facility] [place] Comment on above: Performed By: #### U RCX #### [facility] [address] [place] [address] Dr. Caitlin Martinez Platelet mean volume (Bld) [Entitic vol] 9.1 fL Critically low 9.5-13.5 [facility] [place] Comment on above: Performed By: #### U RCX #### [facility] [address] [place] [address] Dr. Caitlin Martinez PLT 355 103/ul Normal 150-450 [facility] Comment on above: Performed By: #### U RCX #### [facility] [address] [place] [address] Dr. Caitlin Martinez RBC 3.44 106/ul Critically low 4.20-5.40 [facility] Comment on above: Performed By: #### U RCX #### [facility] [address] [place] [address] Dr. Caitlin Martinez WBC 13.3 103/ul Critically high 4.0-11.0 [facility] Comment on above: Performed By: #### U RCX #### [facility] [address] [place] [address] Dr. Caitlin Martinez SCREENon 02-09-2022 SCREEN Negative Normal [facility] [place] Comment on above: Performed By: #### F ETSCRN #### [facility] [address] [place] [address] Dr. Caitlin Martinez CBC AUTO DIFFon 02-08-2022 BASO # 0.1 103/ul Normal 0.0-0.1 [facility] [place] Comment on above: Performed By: #### U RCX #### [facility] [address] [place] [address] Dr. Caitlin Martinez Basophils/100 WBC (Bld) 0.4 % Normal 0.2-2.0 [facility] Comment on above: Performed By: #### U RCX #### [facility] [address] [place] [address] Dr. Caitlin Martinez EO # 0.3 103/ul Normal 0.0-0.7 [facility] [place] Comment on above: Performed By: #### U RCX #### [facility] [address] [place], [place] [address] Dr. Caitlin Martinez Eosinophils/100 WBC (Bld) 2.6 % Normal 0.9-7.0 [facility] [place] Comment on above: Performed By: #### U RCX #### [facility] [address] [place] [address] Dr. Caitlin Martinez Erythrocyte distribution width (RBC) [Ratio] 14.7 % Normal 11.0-15.0 [facility] [place] Comment on above: Performed By: #### U RCX #### [facility] [address] [place] [address] Dr. Caitlin Martinez Hematocrit (Bld) [Volume fraction] 30.6 % Critically low 36.0-48.0 [facility] [place] Comment on above: Performed By: #### U RCX #### [facility] [address] [place] [address] Dr. Caitlin Martinez Hemoglobin (Bld) [Mass/Vol] 9.7 g/dL Critically low 12.0-16.0 [facility] [place] Comment on above: Performed By: #### U RCX #### [facility] [address] [place] [address] Dr. Caitlin Martinez IG # 0.15 10e3/ul Critically high 0.00-0.03 [facility] Comment on above: Performed By: #### U RCX #### [facility] [address] [address] [address] Caitlin Martinez IG % 1.3 % Critically high 0.0-0.5 [facility] Comment on above: Performed By: #### U RCX #### [facility] [address] [place] [address] Dr. Caitlin Martinez LYMPH # 2.8 103/ul Normal 1.2-3.8 [facility] [place] Comment on above: Performed By: #### U RCX #### [facility] [address] [place] [address] Dr. Caitlin Martinez Lymphocytes/100 WBC (Bld) 24.8 % Normal 20.5-60.0 [facility] [place] Comment on above: Performed By: #### U RCX #### [facility] [address] [place] [address] Dr. Caitlin Martinez MANUAL DIFF REQ NO Normal [facility] Comment on above: Performed By: #### U RCX #### [facility] [address] [place] [address] Dr. Caitlin Martinez MCH (RBC) [Entitic mass] 26.6 pg Critically low 26.7-34.0 [facility] [place] Comment on above: Performed By: #### U RCX #### [facility] [address] [place] [address] Dr. Caitlin Martinez MCHC (RBC) [Mass/Vol] 31.7 g/dL Normal 29.9-35.2 [facility] [place] Comment on above: Performed By: #### U RCX #### [facility] [address] [place] [address] Dr. Caitlin Martinez MCV (RBC) [Entitic vol] 83.8 fL Normal 81.0-99.0 [facility] Comment on above: Performed By: #### U RCX #### [facility] [address] [place] [address] Dr. Caitlin Martinez MONO # 1.0 103/ul Critically high 0.3-0.8 [facility] Comment on above: Performed By: #### U RCX #### [facility] [address] [place] [address] Dr. Caitlin Martinez Monocytes/100 WBC (Bld) 8.7 % Normal 1.7-12.0 [facility] Comment on above: Performed By: #### U RCX #### [facility] [address] [place] [address] Dr. Caitlin Martinez NEUT # 7.0 103/ul Critically high 1.4-6.5 [facility] Comment on above: Performed By: #### U RCX #### [facility] [address] [place] [address] Dr. Caitlin Martinez Neutrophils/100 WBC (Bld) 62.2 % Normal 43.0-75.0 [facility] [place] Comment on above: Performed By: #### U RCX #### [facility] [address] [place] [address] Dr. Caitlin Martinez Platelet mean volume (Bld) [Entitic vol] 9.0 fL Critically low 9.5-13.5 [facility] [place] Comment on above: Performed By: #### U RCX #### [facility] [address] [place] [address] Dr. Caitlin Martinez PLT 373 103/ul Normal 150-450 [facility] Comment on above: Performed By: #### U RCX #### [facility] [address] [place] [address] Dr. Caitlin Martinez RBC 3.65 106/ul Critically low 4.20-5.40 [facility] Comment on above: Performed By: #### U RCX #### [facility] [address] [place] [address] Dr. Caitlin Martinez WBC 11.3 103/ul Critically high 4.0-11.0 [facility] Comment on above: Performed By: #### U RCX #### [facility] [address] [place] [address] Dr. Caitlin Martinez Covid-19 PCR ([facility])on 01-16 SARS-CoV-2 (COVID-19) RNA JONATAN+probe Ql (Unsp spec) Not detected Normal NOT DETECTED [facility] Comment on above: Result Comment: When [...] for this test is supported by the [place] of Health and Human Service's declaration that [...] Performed By: #### C BC #### [facility] [address] [place] [address] Dr. Caitlin Martinez DIRECT COOMBSon 02-08-2022 DIRECT EDWINA Negative Normal [facility] Comment on above: Performed By: #### D IRCMB, ABID #### [facility] [address] [place] [address] Dr. Caitlin Martinez DRUG SCREEN RAPID (URINE)on 02-08-2022 AMP Negative Normal NEGATIVE [facility] Comment on above: Performed By: #### C BC #### [facility] [address] [place] [address] Dr. Caitlin Martinez BAR Negative Normal NEGATIVE [facility] Comment on above: Performed By: #### C BC #### [facility] [address] [place] [address] Dr. Caitlin Martinez BUP Negative Normal NEGATIVE [facility] [place] Comment on above: Performed By: #### C BC #### [facility] [address] [address] [address] Caitlin Martinez BZO Negative Normal NEGATIVE [facility] [place] Comment on above: Performed By: #### C BC #### [facility] [address] [address] [address] Caitlin Martinez JEANNA Negative Normal NEGATIVE [facility] [place] Comment on above: Performed By: #### C BC #### [facility] [address] [address] [address] Caitlin Martinez CUT-OFFS SEE BELOW Normal [facility] [place] Comment on above: Result Comment: AMP (Amphetamine): 500ng/mL, BAR (Barbituates): 200 ng/mL, BZO (Benzodiazepines): 150 ng/mL, BUP (Buprenorphine): 10 ng/mL, EJANNA (Cocaine): 150 ng/mL, mAMP (Methamphetamine): 500 ng/mL, MTD (Methadone): 200 ng/mL, OPI (Opiates): 100 ng/mL, OXY (Oxycodone): 100 ng/mL, PCP (Phencyclidine): 25 ng/mL, PPX (Propoxyphene): 300 ng/mL, THC (Cannabinoids): 50 ng/mL, TCA (Trycyclic Antidepressants): 300 ng/mL Performed By: #### C BC #### [facility] [address] [place] [address] Dr. Caitlin Martinez DRUG CUT HEADER DRUG CLASS TEST SYSTEM CUT-OFF CONCENTRATIONS ARE FOLLOWS: Normal [facility] [place] Comment on above: Performed By: #### C BC #### [facility] [address] [place] [address] Dr. Caitlin Martinez mAMP Negative Normal NEGATIVE [facility] [place] Comment on above: Performed By: #### C BC #### [facility] [address] [place] [address] Dr. Caitlin Martinez MTD Negative Normal NEGATIVE [facility] [place] Comment on above: Performed By: #### C BC #### [facility] [address] [place] [address] Dr. Caitlin Martinez OPI Negative Normal NEGATIVE [facility] [place] Comment on above: Performed By: #### C BC #### [facility] [address] [address] [address] Caitlin Martinez OXY Negative Normal NEGATIVE [facility] [place] Comment on above: Performed By: #### C BC #### [facility] [address] [address] [address] Caitlin Martinez PCP Negative Normal NEGATIVE [facility] [place] Comment on above: Performed By: #### C BC #### [facility] [address] [address] [address] Caitlin Martinez PPX Negative Normal NEGATIVE [facility] [place] Comment on above: Performed By: #### C BC #### [facility] [address] [place] [address] Dr. Caitlin Martinez TCA Negative Normal NEGATIVE [facility] [place] Comment on above: Performed By: #### C BC #### [facility] [address] [place] [address] Dr. Caitlin Martinez THC Negative Normal NEGATIVE [facility] [place] Comment on above: Performed By: #### C BC #### [facility] [address] [place] [address] Dr. Caitlin Martinez TYPE AND SCREENon 02-08-2022 TYPE AND SCREEN Negative Normal [facility] Comment on above: Performed By: #### I HORACIO #### [facility] [address] [place] [address] Dr. Caitlin Martinez US PREG BIOPHY W [...] BLACKMON Date: 2022-02-05 16:28 Normal [facility] AMNISUREon 01-25-2022 AMNISURE Negative Normal NEGATIVE [facility] [place] Comment on above: Performed By: #### A MNI #### [facility] [address] [place] [address] Dr. Caitlin Martinez CULTURE URINEon 01-25-2022 CULTURE URINE Culture Observations: No growth Normal [facility] [place] Comment on above: Performed By: #### U RCX #### [facility] [address] [place] [address] Dr. Caitlin Martinez UA (CLEAN/CATCH) L[employer]ER/MICRO I F IND.on 01-25-2022 Bilirubin Ql (U) Negative Normal NEGATIVE [facility] Comment on above: Performed By: #### C VDTBH #### [facility] [address] [place] [address] Dr. Caitlin Martinez Clarity (U) SL CLOUDY Abnormal CLEAR [facility] [place] Comment on above: Performed By: #### C VDTBH #### [facility] [address] [place] [address] Dr. Caitlin Martinez Color (U) LT. YELLOW Normal YELLOW [facility] [place] Comment on above: Performed By: #### C VDTBH #### [facility] [address] [place] [address] Dr. Caitlin Martinez Glucose Ql (U) Negative Normal NEGATIVE [facility] Comment on above: Performed By: #### C VDTBH #### [facility] [address] [place] [address] Dr. Caitlin Martinez Hemoglobin Ql (U) TRACE-INTACT Abnormal NEGATIVE [facility] Comment on above: Performed By: #### C VDTBH #### [facility] [address] [place] [address] Dr. Caitlin Martinez Ketones Ql (U) Negative Normal NEGATIVE [facility] Comment on above: Performed By: #### C VDTBH #### [facility] [address] [place] [address] Dr. Caitlin Martinez LEUKOCYTES TRACE Abnormal NEGATIVE [facility] [place] Comment on above: Performed By: #### C VDTBH #### [facility] [address] [place] [address] Dr. Caitlin Martinez Nitrite Ql (U) Negative Normal NEGATIVE [facility] Comment on above: Performed By: #### C VDTBH #### [facility] [address] [place] [address] Dr. Caitlin Martinez pH (U) 6.5 [pH] Normal 5-9 [facility] [place] Comment on above: Performed By: #### C VDTBH #### [facility] [address] [place] [address] Dr. Caitlin Martinez SPEC GRAVITY 1.020 Normal 1.005-<=1.02 5 [facility] [place] Comment on above: Performed By: #### C VDTBH #### [facility] [address] [place] [address] Dr. Caitlin Martinez UA PROTEIN Negative Normal NEGATIVE/ TRACE [facility] [place] Comment on above: Performed By: #### C VDTBH #### [facility] [address] [place] [address] Dr. Caitlin Martinez UR MICRO IND INDICATED Normal [facility] [place] Comment on above: Performed By: #### C VDTBH #### [facility] [address] [place] [address] Dr. Caitlin Martinez Urobilinogen Qn (U) 0.2 {Barbara'U}/dL Normal 0.2 - 1. 0 [facility] [place] Comment on above: Performed By: #### C VDTBH #### [facility] [address] [place] [address] Dr. Caitlin Martinez URINE MICROSCOPIC ONLYon BACTERIA MODERATE Abnormal NONE SEEN [facility] [place] Comment on above: Performed By: #### C VDTBH #### [facility] [address] [place] [address] Dr. Caitlin Martinez Bacteria identified Cx Nom (U) INDICATED Normal [facility] [place] Comment on above: Performed By: #### C VDTBH #### [facility] [address] [place] [address] Dr. Caitlin Martinez CAST NONE SEEN Normal NONE SEEN [facility] [place] Comment on above: Performed By: #### C VDTBH #### [facility] [address] [place] [address] Dr. Caitlin Martinez Crystals LM Nom (Urine sed) NONE SEEN Normal NONE SEEN [facility] [place] Comment on above: Performed By: #### C VDTBH #### [facility] [address] [place] [address] Dr. Caitlin Martinez Epithelial cells LM Ql (Urine sed) FEW Abnormal NONE SEEN /RARE [facility] Comment on above: Performed By: #### C VDTBH #### [facility] [address] [place] [address] Dr. Caitlin Martinez MUCOUS TRACE Abnormal NONE SEEN [facility] Comment on above: Performed By: #### C VDTBH #### [facility] [address] [place] [address] Dr. Caitlin Martinez RBC 2-5 Abnormal 0-2 [facility] [place] Comment on above: Performed By: #### C VDTBH #### [facility] [address] [place] [address] Dr. Caitlin Martinez WBC 0-2 Abnormal NONE SEEN [facility] Comment on above: Performed By: #### C VDTBH #### [facility] [address] [place] [address] Dr. Caitlin Martinez AMYLASEon 01-16-2022 Amylase [Catalytic activity/Vol] 49 U/L Normal 25-115 [facility] [place] Comment on above: Performed By: #### C VDTBH #### [facility] [address] [place] [address] Dr. Caitlin Martinez BUNon 01-16-2022 Urea nitrogen [Mass/Vol] 3.0 mg/dL Critically low 7.0-18.0 [facility] [place] Comment on above: Performed By: #### C BC #### [facility] [address] [place] [address] Dr. Caitlin Martinez CBC AUTO DIFFon 01-16-2022 BASO # 0.1 103/ul Normal 0.0-0.1 [facility] [place] Comment on above: Performed By: #### U RCX #### [facility] [address] [address] [address] Caitlin Martinez Basophils/100 WBC (Bld) 0.6 % Normal 0.2-2.0 [facility] Comment on above: Performed By: #### U RCX #### [facility] [address] [place] [address] Dr. Caitlin Martinez EO # 0.3 103/ul Normal 0.0-0.7 [facility] [place] Comment on above: Performed By: #### U RCX #### [facility] [address] [place] [address] Dr. Caitlin Martinez Eosinophils/100 WBC (Bld) 2.6 % Normal 0.9-7.0 [facility] [place] Comment on above: Performed By: #### U RCX #### [facility] [address] [place] [address] Dr. Caitlin Martinez Erythrocyte distribution width (RBC) [Ratio] 14.4 % Normal 11.0-15.0 [facility] [place] Comment on above: Performed By: #### U RCX #### [facility] [address] [place] [address] Dr. Caitlin Martinez Hematocrit (Bld) [Volume fraction] 28.4 % Critically low 36.0-48.0 [facility] [place] Comment on above: Performed By: #### U RCX #### [facility] [address] [place] [address] Dr. Caitlin Martinez Hemoglobin (Bld) [Mass/Vol] 9.0 g/dL Critically low 12.0-16.0 [facility] [place] Comment on above: Performed By: #### U RCX #### [facility] [address] [place] [address] Dr. Caitlin Martinez IG # 0.11 10e3/ul Critically high 0.00-0.03 [facility] Comment on above: Performed By: #### U RCX #### [facility] [address] [place] [address] Dr. Caitlin Martinez IG % 1.1 % Critically high 0.0-0.5 [facility] Comment on above: Performed By: #### U RCX #### [facility] [address] [address] [address] Caitlin Martinez LYMPH # 2.2 103/ul Normal 1.2-3.8 [facility] [place] Comment on above: Performed By: #### U RCX #### [facility] [address] [address] [address] Caitlin Martinez Lymphocytes/100 WBC (Bld) 21.0 % Normal 20.5-60.0 [facility] [place] Comment on above: Performed By: #### U RCX #### [facility] [address] [address] [address] Caitlin Martinez MANUAL DIFF REQ NO Normal [facility] Comment on above: Performed By: #### U RCX #### [facility] [address] [place] [address] Dr. Caitlin Martinez MCH (RBC) [Entitic mass] 28.2 pg Normal 26.7-34.0 [facility] [place] Comment on above: Performed By: #### U RCX #### [facility] [address] [place] [address] Dr. Caitlin Martinez MCHC (RBC) [Mass/Vol] 31.7 g/dL Normal 29.9-35.2 [facility] [place] Comment on above: Performed By: #### U RCX #### [facility] [address] [place] [address] Dr. Caitlin Martinez MCV (RBC) [Entitic vol] 89.0 fL Normal 81.0-99.0 [facility] Comment on above: Performed By: #### U RCX #### [facility] [address] [place] [address] Dr. Caitlin Martinez MONO # 0.9 103/ul Critically high 0.3-0.8 [facility] Comment on above: Performed By: #### U RCX #### [facility] [address] [place] [address] Dr. Caitlin Martinez Monocytes/100 WBC (Bld) 8.9 % Normal 1.7-12.0 [facility] Comment on above: Performed By: #### U RCX #### [facility] [address] [address] [address] Caitlin Martinez NEUT # 6.8 103/ul Critically high 1.4-6.5 [facility] Comment on above: Performed By: #### U RCX #### [facility] [address] [address] [address] Caitlin Martinez Neutrophils/100 WBC (Bld) 65.8 % Normal 43.0-75.0 [facility] Comment on above: Performed By: #### U RCX #### [facility] [address] [address] [address] Caitlin Martinez Platelet mean volume (Bld) [Entitic vol] 8.6 fL Critically low 9.5-13.5 [facility] Comment on above: Performed By: #### U RCX #### [facility] [address] [place] [address] Dr. Caitlin Martinez PLT 322 103/ul Normal 150-450 [facility] Comment on above: Performed By: #### U RCX #### [facility] [address] [address] [address] Caitlin Martinez RBC 3.19 106/ul Critically low 4.20-5.40 [facility] Comment on above: Performed By: #### U RCX #### [facility] [address] [address] [address] Caitlin Martinez WBC 10.3 103/ul Normal 4.0-11.0 [facility] Comment on above: Performed By: #### U RCX #### [facility] [address] [address] [address] Caitlin Martinez CREATININEon 01-16-2022 Creatinine [Mass/Vol] 0.55 mg/dL Normal 0.55-1.02 [facility] [place] Comment on above: Performed By: #### C VDTBH #### [facility] [address] [address] [address] Caitlin Martinez EGFR-AF [place] >60 Normal >=60 [facility] Comment on above: Performed By: #### C VDTBH #### [facility] [address] [address] [address] Caitlin Martinez EGFR-NON AF [place] >60 Normal >=60 [facility] [place] Comment on above: Performed By: #### C VDTBH #### [facility] [address] [place] [address] Dr. Caitlin Martinez ELECTROLYTESon 01-16-2022 Anion gap [Moles/Vol] 13.6 mmol/L Normal Th [facility] Comment on above: Performed By: #### C VDTBH #### [facility] [address] [place] [address] Dr. Caitlin Martinez Chloride [Moles/Vol] 106 mmol/L Normal 98-107 [facility] [place] Comment on above: Performed By: #### C VDTBH #### [facility] [address] [place] [address] Dr. Caitlin Martinez CO2 [Moles/Vol] 22.9 mmol/L Normal 21.0-32.0 [facility] Comment on above: Performed By: #### C VDTBH #### [facility] [address] [place] [address] Dr. Caitlin Martinez Potassium [Moles/Vol] 3.5 mmol/L Normal 3.5-5.1 [facility] [place] Comment on above: Performed By: #### C VDTBH #### [facility] [address] [place] [address] Dr. Caitlin Martinez Sodium [Moles/Vol] 139 mmol/L Normal 136-145 [facility] Comment on above: Performed By: #### C VDTBH #### [facility] [address] [place] [address] Dr. Caitlin Martinez LIPASEon 01-16-2022 Lipase [Catalytic activity/Vol] 66.0 U/L Critically low 73.0-393.0 [facility] [place] Comment on above: Performed By: #### C BC #### [facility] [address] [place] [address] Dr. Caitlin Martinez SGOTon 01-16-2022 AST [Catalytic activity/Vol] 12 U/L Critically low 15-37 [facility] [place] Comment on above: Performed By: #### C VDTBH #### [facility] [address] [place] [address] Dr. Caitlin Martinez PTon 01-16-2022 ALT [Catalytic activity/Vol] 9 U/L Critically low 14-59 [facility] [place] Comment on above: Performed By: #### C VDTBH #### [facility] [address] [place] [address] Dr. Caitlin Martinez CBC AUTO DIFFon 01-15-2022 BASO # 0.1 103/ul Normal 0.0-0.1 [facility] [place] Comment on above: Performed By: #### C VDTBH #### [facility] [address] [place] [address] Dr. Caitlin Martinez Basophils/100 WBC (Bld) 0.4 % Normal 0.2-2.0 [facility] Comment on above: Performed By: #### C VDTBH #### [facility] [address] [place] [address] Dr. Caitlin Martinez EO # 0.2 103/ul Normal 0.0-0.7 [facility] [facility] [place] Comment on above: Performed By: #### C VDTBH #### [facility] [address] [place] [address] Dr. Caitlin Martinez Eosinophils/100 WBC (Bld) 1.4 % Normal 0.9-7.0 [facility] [place] Comment on above: Performed By: #### C VDTBH #### [facility] [address] [place] [address] Dr. Caitlin Martinez Erythrocyte distribution width (RBC) [Ratio] 14.1 % Normal 11.0-15.0 [facility] [place] Comment on above: Performed By: #### C VDTBH #### [facility] [address] [place] [address] Dr. Caitlin Martinez Hematocrit (Bld) [Volume fraction] 28.4 % Critically low 36.0-48.0 [facility] [place] Comment on above: Performed By: #### C VDTBH #### [facility] [address] [place] [address] Dr. Caitlin Martinez Hemoglobin (Bld) [Mass/Vol] 9.0 g/dL Critically low 12.0-16.0 [facility] Comment on above: Performed By: #### C VDTBH #### [facility] [address] [place] [address] Dr. Caitlin Martinez IG # 0.18 10e3/ul Critically high 0.00-0.[address] [facility] Comment on above: Performed By: #### C VDTBH #### [facility] [address] [place] [address] Dr. Caitlin Martinez IG % 1.3 % Critically high 0.0-0.5 [facility] Comment on above: Performed By: #### C VDTBH #### [facility] [address] [place] [address] Dr. Caitlin Martinez LYMPH # 2.4 103/ul Normal 1.2-3.8 [facility] Comment on above: Performed By: #### C VDTBH #### [facility] [address] [place] [address] Dr. Caitlin Martinez Lymphocytes/100 WBC (Bld) 16.8 % Critically low 20.5-60.0 [facility] Comment on above: Performed By: #### C VDTBH #### [facility] [address] [place] [address] Dr. Caitlin Martinez MANUAL DIFF REQ NO Normal [facility] Comment on above: Performed By: #### C VDTBH #### [facility] [address] [place] [address] Dr. Caitlin Martinez MCH (RBC) [Entitic mass] 27.9 pg Normal 26.7-34.0 [facility] [place] Comment on above: Performed By: #### C VDTBH #### [facility] [address] [place] [address] Dr. Caitlin Martinez MCHC (RBC) [Mass/Vol] 31.7 g/dL Normal 29.9-35.2 [facility] Comment on above: Performed By: #### C VDTBH #### [facility] [address] [place] [address] Dr. Caitlin Martinez MCV (RBC) [Entitic vol] 87.9 fL Normal 81.0-99.0 [facility] Comment on above: Performed By: #### C VDTBH #### [facility] [address] [place] [address] Dr. Caitlin Martinez MONO # 0.9 103/ul Critically high 0.3-0.8 [facility] Comment on above: Performed By: #### C VDTBH #### [facility] [address] [place] [address] Dr. Caitlin Martinez Monocytes/100 WBC (Bld) 6.7 % Normal 1.7-12.0 [facility] Comment on above: Performed By: #### C VDTBH #### [facility] [address] [place] [address] Dr. Caitlin Martinez NEUT # 10.3 103/ul Critically high 1.4-6.5 [facility] Comment on above: Performed By: #### C VDTBH #### [facility] [address] [place] [address] Dr. Caitlin Martinez Neutrophils/100 WBC (Bld) 73.4 % Normal 43.0-75.0 [facility] [place] Comment on above: Performed By: #### C VDTBH #### [facility] [address] [place] [address] Dr. Caitlin Martinez Platelet mean volume (Bld) [Entitic vol] 9.0 fL Critically low 9.5-13.5 [facility] [place] Comment on above: Performed By: #### C VDTBH #### [facility] [address] [place] [address] Dr. Caitlin Martinez PLT 318 103/ul Normal 150-450 [facility] [place] Comment on above: Performed By: #### C VDTBH #### [facility] [address] [place] [address] Dr. Caitlin Martinez RBC 3.23 106/ul Critically low 4.20-5.40 [facility] Comment on above: Performed By: #### C VDTBH #### [facility] [address] [place], [place] [address] Dr. Caitlin Martinez WBC 14.0 103/ul Critically high 4.0-11.0 The [facility] Comment on above: Performed By: #### C VDTBH #### [facility] [address] [place], [place] [address] ABD/PELVIS WO CONon [...] BLACKMON Date: 2022-01-15 16:31 Normal [facility] CULTURE URINEon 01-15-2022 CULTURE URINE Culture Observations: LIGHT GROWTH OF MIXED GENITAL COSME. NO POTENTIAL PATHOGENS SEEN. Normal [facility] Comment on above: Performed By: #### U RCX #### [facility] [address] [place] [address] [id number] [address] Caitlin Martinez UA (CLEAN/CATCH) LOOSE HAND PACKER/MICRO I F IND.on 01-15-2022 Bilirubin Ql (U) Negative Normal NEGATIVE [facility] Comment on above: Performed By: #### C BC #### [facility] [address] [place] [address] Dr. Caitlin Martinez Clarity (U) CLEAR Normal CLEAR [facility] [place] Comment on above: Performed By: #### C BC #### [facility] [address] [place] [address] Dr. Caitlin Martinez Color (U) LT. YELLOW Normal YELLOW [facility] [place] Comment on above: Performed By: #### C BC #### [facility] [address] [place] [address] Dr. Caitlin Martinez Glucose Ql (U) Negative Normal NEGATIVE [facility] Comment on above: Performed By: #### C BC #### [facility] [address] [place] [address] Dr. Caitlin Martinez Hemoglobin Ql (U) Negative Normal NEGATIVE [facility] Comment on above: Performed By: #### C BC #### [facility] [address] [place] [address] Dr. Caitlin Martinez Ketones Ql (U) Negative Normal NEGATIVE [facility] Comment on above: Performed By: #### C BC #### [facility] [address] [place] [address] Dr. Caitlin Martinez LEUKOCYTES TRACE Abnormal NEGATIVE [facility] [place] Comment on above: Performed By: #### C BC #### [facility] [address] [place] [address] Dr. Caitlin Martinez Nitrite Ql (U) Negative Normal NEGATIVE [facility] Comment on above: Performed By: #### C BC #### [facility] [address] [place] [address] Dr. Caitlin Martinez pH (U) 7.0 [pH] Normal 5-9 [facility] [place] Comment on above: Performed By: #### C BC #### [facility] [address] [place] [address] Dr. Caitlin Martinez SPEC GRAVITY 1.010 Normal 1.005-<=1.02 5 [facility] [place] Comment on above: Performed By: #### C BC #### [facility] [address] [place] [address] Dr. Caitlin Martinez UA PROTEIN Negative Normal NEGATIVE/ TRACE [facility] Comment on above: Performed By: #### C BC #### [facility] [address] [place] [address] Dr. Caitlin Martinez UR MICRO IND INDICATED Normal [facility] Comment on above: Performed By: #### C BC #### [facility] [address] [place] [address] Dr. Caitlin Martinez Urobilinogen Qn (U) 0.2 {Barbara'U}/dL Normal 0.2 - 1. 0 [facility] Comment on above: Performed By: #### C BC #### [facility] [address] [place] [address] Dr. Caitlin Martinez URINE MICROSCOPIC ONLYon BACTERIA MODERATE Abnormal NONE SEEN [facility] Comment on above: Performed By: #### C BC #### [facility] [address] [place] [address] Dr. Caitlin Martinez Bacteria identified Cx Nom (U) INDICATED Normal [facility] Comment on above: Performed By: #### C BC #### [facility] [address] [place] [address] Dr. Caitlin Martinez CAST NONE SEEN Normal NONE SEEN [facility] [place] Comment on above: Performed By: #### C BC #### [facility] [address] [place] [address] Dr. Caitlin Martinez Crystals LM Nom (Urine sed) NONE SEEN Normal NONE SEEN [facility] Comment on above: Performed By: #### C BC #### [facility] [address] [place] [address] Dr. Caitlin Martinez Epithelial cells LM Ql (Urine sed) MODERATE Abnormal NONE SEEN /RARE [facility] Comment on above: Performed By: #### C BC #### [facility] [address] [place] [address] Dr. Caitlin Martinez MUCOUS NONE SEEN Normal NONE SEEN [facility] Comment on above: Performed By: #### C BC #### [facility] [address] [place] [address] Dr. Caitlin Martinez RBC NONE SEEN Abnormal 0-2 [facility] Comment on above: Performed By: #### C BC #### [facility] [address] [place] [address] [address] Caitlin Martinez WBC 2-5 Abnormal NONE SEEN [facility] Comment on above: Performed By: #### C BC #### [facility] [address] [place] [address] [address] Caitlin Martinez US APPENDIXon 01-15-2022 US [...] DAVID BLACKMON Date: 2022-01-15 14:14 Normal [facility] US PREG GROWTHon 01-15-2022 US PREG [...] BLACKMON Date: 2022-01-15 10:59 Normal [facility] US PREG PLACENTAon US PREG PLACENTA [...] BLACKMON Date: 2022-01-15 10:57 Normal [facility] UA (CLEAN/CATCH) LOOSE HAND PACKER/MICRO I F IND.on 12-29-2021 Bilirubin Ql (U) Negative Normal NEGATIVE [facility] Comment on above: Performed By: #### C BC #### [facility] [address] [place] [address] Dr. Caitlin Martinez Clarity (U) CLEAR Normal CLEAR [facility] [place] Comment on above: Performed By: #### C BC #### [facility] [address] [place] [address] Dr. Caitlin Martinez Color (U) LT. YELLOW Normal YELLOW [facility] [place] Comment on above: Performed By: #### C BC #### [facility] [address] [place] [address] Dr. Caitlin Martinez Glucose Ql (U) Negative Normal NEGATIVE [facility] Comment on above: Performed By: #### C BC #### [facility] [address] [place] [address] Dr. Caitlin Martinez Hemoglobin Ql (U) Negative Normal NEGATIVE [facility] Comment on above: Performed By: #### C BC #### [facility] [address] [place] [address] Dr. Caitlin Martinez Ketones Ql (U) Negative Normal NEGATIVE [facility] Comment on above: Performed By: #### C BC #### [facility] [address] [place] [address] Dr. Caitlin Martinez LEUKOCYTES Negative Normal NEGATIVE [facility] [place] Comment on above: Performed By: #### C BC #### [facility] [address] [place] [address] Dr. Caitlin Martinez Nitrite Ql (U) Negative Normal NEGATIVE [facility] Comment on above: Performed By: #### C BC #### [facility] [address] [place] [address] Dr. Caitlin Martinez pH (U) 6.5 [pH] Normal 5-9 [facility] [place] Comment on above: Performed By: #### C BC #### [facility] [address] [place] [address] Dr. Caitlin Martinez SPEC GRAVITY 1.020 Normal 1.005-<=1.02 5 [facility] Comment on above: Performed By: #### C BC #### [facility] [address] [place] [address] Dr. Caitlin Martinez UA PROTEIN Negative Normal NEGATIVE/ TRACE [facility] Comment on above: Performed By: #### C BC #### [facility] [address] [place] [address] Dr. Caitlin Martinez UR MICRO IND NOT INDICATED Normal [facility] Comment on above: Performed By: #### C BC #### [facility] [address] [place] [address] Dr. Caitlin Martinez Urobilinogen Qn (U) 1.0 {Barbara'U}/dL Normal 0.2 - 1. 0 [facility] Comment on above: Performed By: #### C BC #### [facility] [address] [place] [address] Dr. Caitlin Martinez US PREG CERVICAL LENGTHon [...] OATES Date: 2021-12-29 15:53 Normal [facility] UA (CLEAN/CATCH) LOOSE HAND PACKER/MICRO I F IND.on 12-18-2021 Bilirubin Ql (U) Negative Normal NEGATIVE [facility] Comment on above: Performed By: #### C BC #### [facility] [address] [place] [address] Dr. Caitlin Martinez Clarity (U) CLEAR Normal CLEAR [facility] [place] Comment on above: Performed By: #### C BC #### [facility] [address] [place] [address] Dr. Caitlin Martinez Color (U) YELLOW Normal YELLOW [facility] [place] Comment on above: Performed By: #### C BC #### [facility] [address] [place] [address] Dr. Caitlin Martinez Glucose Ql (U) Negative Normal NEGATIVE [facility] Comment on above: Performed By: #### C BC #### [facility] [address] [place] [address] Dr. Caitlin Martinez Hemoglobin Ql (U) Negative Normal NEGATIVE [facility] Comment on above: Performed By: #### C BC #### [facility] [address] [place] [address] Dr. Caitlin Martinez Ketones Ql (U) TRACE Abnormal NEGATIVE [facility] Comment on above: Performed By: #### C BC #### [facility] [address] [place] [address] Dr. Caitlin Martinez LEUKOCYTES Negative Normal NEGATIVE [facility] [place] Comment on above: Performed By: #### C BC #### [facility] [address] [place] [address] Dr. Caitlin Martinez Nitrite Ql (U) Negative Normal NEGATIVE [facility] Comment on above: Performed By: #### C BC #### [facility] [address] [place] [address] Dr. Caitlin Martinez pH (U) 6.0 [pH] Normal 5-9 [facility] [place] Comment on above: Performed By: #### C BC #### [facility] [address] [place] [address] Dr. Caitlin Martinez SPEC GRAVITY 1.025 Normal 1.005-<=1.02 5 [facility] [place] Comment on above: Performed By: #### C BC #### [facility] [address] [place] [address] Dr. Caitlin Martinez UA PROTEIN Negative Normal NEGATIVE/ TRACE [facility] Comment on above: Performed By: #### C BC #### [facility] [address] [place] [address] Dr. Caitlin Martinez UR MICRO IND NOT INDICATED Normal [facility] Comment on above: Performed By: #### C BC #### [facility] [address] [place] [address] Dr. Caitlin Martinez Urobilinogen Qn (U) 4 {Barbara'U}/dL Abnormal 0.2 - 1.0 [facility] [place] Comment on above: Performed By: #### C BC #### [facility] [address] [place] [address] Dr. Caitlin Martinez RHOGAMon 11-28-2021 RHOGAM Status Information Issued Quantity 1 Product ID Rh Immune Globulin Lot Number [id number] Issue Date/Time [id number] Normal [facility] [place] Comment on above: Performed By: #### I HORACIO #### [facility] [address] [place] [address] Dr. Caitlin Martinez TYPE AND SCREENon 11-27-2021 TYPE AND SCREEN Negative Normal [facility] Comment on above: Performed By: #### T NS #### [facility] [address] [place] [address] Dr. Caitlin Martinez CULTURE URINEon 11-23-2021 CULTURE URINE Culture Observations: No growth Normal [facility] [place] Comment on above: Performed By: #### I HORACIO #### [facility] [address] [place] [address] Dr. Caitlin Martinez UA (CLEAN/CATCH) LOOSE HAND PACKER/MICRO I F IND.on 11-23-2021 Bilirubin Ql (U) Negative Normal NEGATIVE [facility] Comment on above: Performed By: #### U RCX #### [facility] [address] [place] [address] Dr. Caitlin Martinez Clarity (U) CLEAR Normal CLEAR [facility] [place] Comment on above: Performed By: #### U RCX #### [facility] [address] [place] [address] Dr. Caitlin Martinez Color (U) LT. YELLOW Normal YELLOW [facility] [place] Comment on above: Performed By: #### U RCX #### [facility] [address] [address] [address] Caitlin Martinez Glucose Ql (U) Negative Normal NEGATIVE [facility] Comment on above: Performed By: #### U RCX #### [facility] [address] [address] [address] Caitlin Martinez Hemoglobin Ql (U) Negative Normal NEGATIVE [facility] Comment on above: Performed By: #### U RCX #### [facility] [address] [place] [address] [address] Caitlin Martinez Ketones Ql (U) Negative Normal NEGATIVE [facility] Comment on above: Performed By: #### U RCX #### [facility] [address] [place] [address] Dr. Caitlin Martinez LEUKOCYTES SMALL Abnormal NEGATIVE [facility] [place] Comment on above: Performed By: #### U RCX #### [facility] [address] [place] [address] Dr. Caitlin Martinez Nitrite Ql (U) Negative Normal NEGATIVE [facility] Comment on above: Performed By: #### U RCX #### [facility] [address] [place] [address] Dr. Caitlin Martinez pH (U) 6.5 [pH] Normal 5-9 [facility] [place] Comment on above: Performed By: #### U RCX #### [facility] [address] [place] [address] Dr. Caitlin Martinez SPEC GRAVITY 1.010 Normal 1.005-<=1.02 5 [facility] [place] Comment on above: Performed By: #### U RCX #### [facility] [address] [place] [address] Dr. Caitlin Martinez UA PROTEIN Negative Normal NEGATIVE/ TRACE [facility] Comment on above: Performed By: #### U RCX #### [facility] [address] [place] [address] Dr. Caitlin Martinez UR MICRO IND INDICATED Normal [facility] [place] Comment on above: Performed By: #### U RCX #### [facility] [address] [place] [address] Dr. Caitlin Martinez Urobilinogen Qn (U) 0.2 {Barbara'U}/dL Normal 0.2 - 1. 0 [facility] Comment on above: Performed By: #### U RCX #### [facility] [address] [place] [address] Dr. Caitlin Martinez URINE MICROSCOPIC ONLYon BACTERIA TRACE Abnormal NONE SEEN [facility] Comment on above: Performed By: #### U RCX #### [facility] [address] [place] [address] Dr. Caitlin Martinez Bacteria identified Cx Nom (U) INDICATED Normal [facility] Comment on above: Performed By: #### U RCX #### [facility] [address] [place] [address] Dr. Caitlin Martinez CAST SEEN Abnormal NONE SEEN [facility] Comment on above: Performed By: #### U RCX #### [facility] [address] [place] [address] Dr. Caitlin Martinez Crystals LM Nom (Urine sed) SEEN Abnormal NONE SEEN [facility] Comment on above: Performed By: #### U RCX #### [facility] [address] [place] [address] Dr. Caitlin Martinez Epithelial cells LM Ql (Urine sed) RARE Normal NONE SEEN /RARE [facility] Comment on above: Performed By: #### U RCX #### [facility] [address] [place] [address] Dr. Caitlin Martinez MUCOUS TRACE Abnormal NONE SEEN [facility] Comment on above: Performed By: #### U RCX #### [facility] [address] [place] [address] Dr. Caitlin Martinez RBC 0-2 Normal 0-2 [facility] Comment on above: Performed By: #### U RCX #### [facility] [address] [place] [address] Dr. Caitlin Martinez WBC 2-5 Abnormal NONE SEEN [facility] Comment on above: Performed By: #### U RCX #### [facility] [address] [place] [address] Dr. Caitlin Martinez GLUCOSE - 1HRon 11-06-2021 Glucose [Mass/Vol] 131 mg/dL Critically high 74-106 [facility] Comment on above: Performed By: #### I HORACIO #### [facility] [address] [place] [address] Dr. Caitlin Martinez HEMOGRAM AND PLATELon 2021 Hematocrit (Bld) [Volume fraction] 34.2 % Critically low 36.0-48.0 [facility] [place] Comment on above: Performed By: #### C BC #### [facility] [address] [place] [address] Dr. Caitlin Martinez Hemoglobin (Bld) [Mass/Vol] 11.3 g/dL Critically low 12.0-16.0 [facility] [place] Comment on above: Performed By: #### C BC #### [facility] [address] [place] [address] Dr. Caitlin Martinez MCH (RBC) [Entitic mass] 31.7 pg Normal 26.7-34.0 [facility] [place] Comment on above: Performed By: #### C BC #### [facility] [address] [place] [address] Dr. Caitlin Martinez MCHC (RBC) [Mass/Vol] 33.0 g/dL Normal 29.9-35.2 [facility] [place] Comment on above: Performed By: #### C BC #### [facility] [address] [place] [address] Dr. Caitlin Martinez MCV (RBC) [Entitic vol] 96.1 fL Normal 81.0-99.0 [facility] Comment on above: Performed By: #### C BC #### [facility] [address] [place] [address] Dr. Caitlin Martinez PLT 372 103/ul Normal 150-450 [facility] Comment on above: Performed By: #### C BC #### [facility] [address] [place] [address] Dr. Caitlin Martinez RBC 3.56 106/ul Critically low 4.20-5.40 [facility] Comment on above: Performed By: #### C BC #### [facility] [address] [address] [address] Caitlin Martinez WBC 10.1 103/ul Normal 4.0-11.0 [facility] [place] Comment on above: Performed By: #### C BC #### [facility] [address] [address] [address] Caitlin Martinez CHLAMYDIA/GONOCOCCUS JONATAN (SW AB/URINE/PAPon 10-31-2021 Chlamydia trachomatis, JONATAN Negative Normal Negative [facility] [place] Comment on above: Performed By: #### C BC #### [facility] [address] [address] [address] Caitlin Martinez Neisseria gonorrhoeae, JONATAN Negative Normal Negative [facility] [place] Comment on above: Performed By: #### C BC #### [facility] [address] [place] [address] Dr. Caitlin Martinez VAGINITIS/VAGINOSIS DNA PROB Paramjit 10-29-2021 Shannon species Negative Normal Negative [facility] Comment on above: Performed By: #### U RCX #### [facility] [address] [place] [address] Dr. Caitlin Martinez Gardnerella vaginalis Negative Normal Negative [facility] Comment on above: Performed By: #### U RCX #### [facility] [address] [place] [address] Dr. Caitlin Martinez Trichomonas vaginalis Negative Normal Negative [facility] Comment on above: Performed By: #### U RCX #### [facility] [address] [place] [address] Dr. Caitlin Martinez US PREG INCOMPLETE ANATOMYon [...] by: DAVID BLACKMON Date: 2021-10-26 12:05 Normal [facility] CBC W MANUAL DIFFon 10-25-19 22 ATYPICAL LYMPH # Normal [facility] Comment on above: Performed By: #### U RCX #### [facility] [address] [place] [address] Dr. Caitlin Martinez ATYPICAL LYMPH % Normal [facility] Comment on above: Performed By: #### U RCX #### [facility] [address] [address] [address] Caitlin Martinez BAND # 0.1 103/ul Normal 0.0-0.3 [facility] Comment on above: Performed By: #### U RCX #### [facility] [address] [place] [address] Dr. Caitlin Martinez BAND % 1 % Normal 0-5 [facility] [place] Comment on above: Performed By: #### U RCX #### [facility] [address] [place] [address] Dr. Caitlin Martinez BASOM # 0.00 103/ul Normal 0.00-0.10 [facility] Comment on above: Performed By: #### U RCX #### [facility] [address] [place] [address] Dr. Caitlin Martinez BASOM % 0.0 % Critically low 0.2-2.0 [facility] Comment on above: Performed By: #### U RCX #### [facility] [address] [place] [address] Dr. Caitlin Martinez BLAST # Normal [facility] Comment on above: Performed By: #### U RCX #### [facility] [address] [place] [address] Dr. Caitlin Martinez BLAST % Normal [facility] Comment on above: Performed By: #### U RCX #### [facility] [address] [place] [address] Dr. Caitlin Martinez CORRECTED WBC Normal 4.0-11.0 [facility] Comment on above: Performed By: #### U RCX #### [facility] [address] [place] [address] Dr. Caitlin Martinez EOS # 0.12 103/ul Normal 0.00-0.70 [facility] Comment on above: Performed By: #### U RCX #### [facility] [address] [address] [address] Caitlin Martinez EOS% 1.0 % Normal 0.9-7.0 [facility] Comment on above: Performed By: #### U RCX #### [facility] [address] [address] [address] Caitlin Martinez HCT 31.5 % Critically low 36.0-48.0 [facility] Comment on above: Performed By: #### U RCX #### [facility] [address] [address] [address] Caitlin Martinez HGB 10.5 g/dl Critically low 12.0-16.0 [facility] Comment on above: Performed By: #### U RCX #### [facility] [address] [address] [address] Caitlin Martinez LYMPHM # 0.37 103/ul Critically low 1.20-3.80 [facility] Comment on above: Performed By: #### U RCX #### [facility] [address] [place] [address] Dr. Caitlin Martinez LYMPHM% 3.0 % Critically low 20.5-60.0 [facility] Comment on above: Performed By: #### U RCX #### [facility] [address] [address] [address] Caitlin Martinez MCH 31.8 pg Normal 26.7-34.0 [facility] [place] Comment on above: Performed By: #### U RCX #### [facility] [address] [address] [address] Caitlin Martinez MCHC 33.3 g/dl Normal 29.9-35.2 [facility] Comment on above: Performed By: #### U RCX #### [facility] [address] [place] [address] Dr. Caitlin Martinez MCV 95.5 fL Normal 81.0-99.0 [facility] Comment on above: Performed By: #### U RCX #### [facility] [address] [place] [address] Dr. Caitlin Martinez METAMYELOCYTE # Normal [facility] Comment on above: Performed By: #### U RCX #### [facility] [address] [place] [address] Dr. Caitlin Martinez METAMYELOCYTE % Normal [facility] Comment on above: Performed By: #### U RCX #### [facility] [address] [address] [address] Caitlin Martinez MONOM# 0.73 103/ul Normal 0.30-0.80 [facility] Comment on above: Performed By: #### U RCX #### [facility] [address] [place] [address] Dr. Caitlin Martinez MONOM% 6.0 % Normal 1.7-12.0 [facility] Comment on above: Performed By: #### U RCX #### [facility] [address] [place] [address] Dr. Caitlin Martinez MPV 9.5 fL Normal 9.5-13.5 [facility] Comment on above: Performed By: #### U RCX #### [facility] [address] [place] [address] Dr. Caitlin Martinez MYELOCYTE # Normal [facility] Comment on above: Performed By: #### U RCX #### [facility] [address] [place] [address] Dr. Caitlin Martinez MYELOCYTE % Normal [facility] Comment on above: Performed By: #### U RCX #### [facility] [address] [place] [address] Dr. Caitlin Martinez NRBC Normal [facility] Comment on above: Performed By: #### U RCX #### [facility] [address] [place] [address] Dr. Caitlin Martinez PLT 275 103/ul Normal 150-450 [facility] Comment on above: Performed By: #### U RCX #### [facility] [address] [place] [address] Dr. Caitlin Martinez RBC 3.30 106/ul Critically low 4.20-5.40 [facility] Comment on above: Performed By: #### U RCX #### [facility] [address] [place] [address] Dr. Caitlin Martinez RDW 13.6 % Normal 11.0-15.0 [facility] Comment on above: Performed By: #### U RCX #### [facility] [address] [place] [address] Dr. Caitlin Martinez SEG # 10.86 103/ul Critically high 1.40-6.50 [facility] Comment on above: Performed By: #### U RCX #### [facility] [address] [place] [address] Dr. Caitlin Martinez SEG % 89.0 % Critically high 43.0-75.0 [facility] Comment on above: Performed By: #### U RCX #### [facility] [address] [place] [address] Dr. Caitlin Martinez WBC 12.2 103/ul Critically high 4.0-11.0 [facility] Comment on above: Performed By: #### U RCX #### [facility] [address] [place] [address] Dr. Caitlin Martinez ER URINE PROFILEon 2 Bilirubin Ql (U) Negative Normal NEGATIVE [facility] Comment on above: Performed By: #### C VDTBH #### [facility] [address] [place] [address] Dr. Caitlin Martinez Clarity (U) SL CLOUDY Abnormal CLEAR [facility] Comment on above: Performed By: #### C VDTBH #### [facility] [address] [place] [address] Dr. Caitlin Martinez Color (U) YELLOW Normal YELLOW [facility] Comment on above: Performed By: #### C VDTBH #### [facility] [address] [place] [address] Dr. Caitlin Martinez ERUAHNadine A micrscopic examination will be performed if indicated. Normal [facility] Comment on above: Performed By: #### C VDTBH #### [facility] [address] [address] [address] Caitlin Martinez Glucose Ql (U) Negative Normal NEGATIVE [facility] Comment on above: Performed By: #### C VDTBH #### [facility] [address] [place] [address] Dr. Caitlin Martinez Hemoglobin Ql (U) Negative Normal NEGATIVE [facility] Comment on above: Performed By: #### C VDTBH #### [facility] [address] [place] [address] Dr. Caitlin Martinez Ketones Ql (U) >=[address] [facility] Comment on above: Performed By: #### C VDTBH #### [facility] [address] [place] [address] Dr. Caitlin Martinez LEUKOCYTES Negative Normal NEGATIVE [facility] Comment on above: Performed By: #### C VDTBH #### [facility] [address] [place] [address] Dr. Caitlin Martinez Nitrite Ql (U) Negative Normal NEGATIVE [facility] Comment on above: Performed By: #### C VDTBH #### [facility] [address] [place] [address] Dr. Caitlin Martinez pH (U) 6.0 [pH] Normal 5-9 [facility] Comment on above: Performed By: #### C VDTBH #### [facility] [address] [place] [address] Dr. Caitlin Martinez SPEC GRAVITY 1.020 Normal 1.005-<=1.02 5 [facility] Comment on above: Performed By: #### C VDTBH #### [facility] [address] [place] [address] Dr. Caitlin Martinez UA PROTEIN Negative Normal NEGATIVE/ TRACE [facility] Comment on above: Performed By: #### C VDTBH #### [facility] [address] [place] [address] Dr. Caitlin Martinez UR MICRO IND NOT INDICATED Normal [facility] Comment on above: Performed By: #### C VDTBH #### [facility] [address] [place] [address] Dr. Caitlin Martinez Urobilinogen Qn (U) 1.0 {Barbara'U}/dL Normal 0.2 - 1. 0 [facility] Comment on above: Performed By: #### C VDTBH #### [facility] [address] [place] [address] Dr. Caitlin Martinez INFLUENZA A AND B AGon 10-24 INFLUBNEG SEE BELOW Normal [facility] Comment on above: Result Comment: Nega tive for Flu B protein antigen. Infection due to Flu B cannot be ruled out. Flu B antigen in the sample may be below the detection limit of the test. Performed By: #### C VDTBH #### [facility] [address] [place] [address] Dr. Caitlin Martinez INFLUENZA A AG Positive Abnormal NEGATIVE SEE COMMENT [facility] Comment on above: Performed By: #### C VDTBH #### [facility] [address] [place] [address] Dr. Caitlin Martinez INFLUENZA B AG Negative Normal NEGATIVE SEE COMMENT [facility] Comment on above: Performed By: #### C VDTBH #### [facility] [address] [place] [address] Dr. Caitlin Martinez INFLUPOS SEE BELOW Normal [facility] Comment on above: Result Comment: NOTE : Live attenuated influenzae vaccine viruses can cause a positive result for a rapid influenza diagnostic test if administered up to 7 days prior to rapid testing. Performed By: #### C VDTBH #### [facility] [address] [place] [address] Dr. Caitlin Martinez INTERNAL CONTROLS Within Normal Limits Normal Wi thin Normal Limits [facility] Comment on above: Performed By: #### C VDTBH #### [facility] [address] [place] [address] Dr. Caitlin Martinez PROF CHEM 8 (BAS METB)on Anion gap [Moles/Vol] 14.4 mmol/L Normal Th [facility] Comment on above: Performed By: #### D IRCMB, ABID #### [facility] [address] [address] [address] Caitlin Martinez Calcium [Mass/Vol] 8.4 mg/dL Critically low 8.5-10.1 Th [facility] Comment on above: Performed By: #### D IRCMB, ABID #### [facility] [address] [address] [address] Caitlin Martinez Chloride [Moles/Vol] 101 mmol/L Normal 98-107 [facility] Comment on above: Performed By: #### D IRCMB, ABID #### [facility] [address] [address] [address] Caitlin Martinez CO2 [Moles/Vol] 19.7 mmol/L Critically low 21.0-32.0 [facility] Comment on above: Performed By: #### D IRCMB, ABID #### [facility] [address] [address] [address] Caitlin Martinez Creatinine [Mass/Vol] 0.55 mg/dL Normal 0.55-1.02 [facility] Comment on above: Performed By: #### D IRCMB, ABID #### [facility] [address] [address] [address] Caitlin Martinez EGFR-AF [place] >60 Normal >=60 [facility] Comment on above: Performed By: #### D IRCMB, ABID #### [facility] [address] [address] [address] Caitlin Martinez EGFR-NON AF [place] >60 Normal >=60 [facility] Comment on above: Performed By: #### D IRCMB, ABID #### [facility] [address] [address] [address] Caitlin Martinez Glucose [Mass/Vol] 91 mg/dL Normal 74-106 [facility] Comment on above: Performed By: #### D IRCMB, ABID #### [facility] [address] [address] [address] Caitlin Martinez Potassium [Moles/Vol] 3.1 mmol/L Critically low 3.5-5.1 [facility] Comment on above: Performed By: #### D IRCMB, ABID #### [facility] [address] [address] [address] Caitlin Martinez Sodium [Moles/Vol] 132 mmol/L Critically low 136-145 Th [facility] Comment on above: Performed By: #### D IRCMB, ABID #### [facility] [address] [address] [address] Caitlin Martinez Urea nitrogen [Mass/Vol] 7.0 mg/dL Normal 7.0-18.0 [facility] Comment on above: Performed By: #### D IRCMB, ABID #### [facility] [address] [address] [address] Caitlin Martinez Urea nitrogen/Creatinine [Mass ratio] 12.7 mg/mg Normal [facility] Comment on above: Performed By: #### D IRCMB, ABID #### [facility] [address] [place] [address] Dr. Caitlin Martinez US PREG ANATOMY SINGLEon US PREG ANATOMY SINGLE EXAMINATION: US P REG ANATOMY SINGLE HISTORY: anatomy study COMPARISON: No [...] BLACKMON Date: 2021-09-28 09:17 Normal [facility] CHEMISTRYOrdered By: SYSTEM SYSTEM on 06-21-2021 [place] [address] m[IU]/mL High 1 - 3 mIU/mL [facility] Remisol XR LUMBAR [...] gas pattern is nonobstructive. There is a msmjcbwt-hv-nygri amount of stool burden. IMPRESSION: No malalignment. No acute compression deformity. Ewgymjrt-dr-wxbbt amount of stool burden. [employer] Workstation ID: [id number] Dictated by: LUBA GARCÍA on Sat Mar 05, 2020 4:09:51 PM EDT Transcribed by: KELVIN GUADALUPE on Sat Mar 05, 2020 4:17:18 PM EDT Finalized by: LUBA GARCÍA on Sat Mar 05, 2020 7:52:11 PM EDT Normal [facility] Comment on above: Order Comment: Injur y/Trauma or Illness?:Illness/Other How long have you had these symptoms (acute/chronic)?:Chronic Reason for exam?:low back pain History of cancer?:n Surgeries, chemotherapy, or radiation?:n Type of Exam?:Initial Additional signs and symptoms?:fibromyalgia XR Lumbar Spine 2-3 Views (S tandard)on 03-05-2020 No malalignment. No acute compression deformity. Crcsdmbq-pg-srxni amount of stool burden. [employer] Workstation ID: [id number] [facility] EXAMINATION: XR LUMBAR SPINE 2-3 VIEWS [...] gas pattern is nonobstructive. There is a rozgiikd-mm-spxvp amount of stool burden. [facility] Interface, Rad In Jose Luis Speechq [...] gas pattern is nonobstructive. There is a hjssyivk-mm-yssqn amount of stool burden. IMPRESSION: No malalignment. No acute compression deformity. Nsifvxib-mc-rbpxt amount of stool burden. [employer] Workstation ID: [id number] [facility] CNOVon 10-28-2018 CNOV Office Visit (OLVIN) MICHELLE GODINEZ ([id number]) 1995 F Date Time Provider Department 10/28/18 [...] REFERRING PROVIDER: Rebecca Lange MD [address] [facility] [id number] Consult requested for an opinion regarding the [...] TIME: 12:44 PM Referring Provider: REBECCA LANGE [[id number]] Allergies As of Date: 10/28/2018 (No Known [...] Status:Closed by YOAN RODRIGUEZ MD on 10/29/18 [facility] PROGRESSon 10-28-2018 Protein mass conc HNO ID: [id number] Author: Yoan Rodriguez Service: ? Author Type: Physician Type: Progress Notes Filed: 10/29/2018 3:03 PM Note Text: VASCULAR SURGERY INITIAL CONSULT SERVICE DATE: 10/28/2018 SERVICE TIME: 12:44 PM PRIMARY CARE PHYSICIAN: Rebecca Lange MD REFERRING PROVIDER: Rebecca Lange MD [address] [facility] [id number] Consult requested for an opinion regarding the [...] right carotid stenosis. Patient recently evaluated in [facility] ED after she became dizzy and light [...] 2018 TIME: 12:44 PM Normal [facility] Vital Signs Date Time Vital Sign Value Performing Clinician Facility 10-19-2024 13:21-0400 Body mass index (BMI) [Ratio] 32.42 kg/m2 Edward Justen DO Work Phone: [facility] 10-19-2024 13:21-0400 Body weight 83.01 kg Edward Justen DO Work Phone: [facility] 10-19-2024 13:21-0400 Diastolic blood pressure 72 mm[Hg] Edward Justen DO Work Phone: [facility] 10-19-2024 13:21-0400 Systolic blood pressure 118 mm[Hg] Edward Justen DO Work Phone: [facility] 09-15-2024 11:48-0400 Body mass index (BMI) [Ratio] 32.74 kg/m2 Edward Justen DO Work Phone: [facility] 09-15-2024 11:48-0400 Body weight 83.83 kg Edward Justen DO Work Phone: [facility] 09-15-2024 11:48-0400 Diastolic blood pressure 70 mm[Hg] Edward Justen DO Work Phone: [facility] 09-15-2024 11:48-0400 Systolic blood pressure 112 mm[Hg] Edward Justen DO Work Phone: [facility] 05-07-2024 14:16-0500 Blood Pressure Location LEYDIRUTH JEFFERS [facility] 05-07-2024 14:16-0500 Diastolic blood pressure 82 mm[Hg] LEYDI JEFFERS [facility] 05-07-2024 14:16-0500 Heart rate 96 /min LEYDI JEFFERS [facility] 05-07-2024 14:16-0500 Systolic blood pressure 134 mm[Hg] LEYDI JEFFERS [facility] 04-21-2024 14:26-0500 Body mass index (BMI) [Ratio] 32.62 kg/m2 Edward Justen DO Work Phone: [facility] 04-21-2024 14:26-0500 Body weight 83.52 kg Edward Justen DO Work Phone: [facility] 04-21-2024 14:26-0500 Diastolic blood pressure 64 mm[Hg] Edward Justen DO Work Phone: [facility] 04-21-2024 14:26-0500 Systolic blood pressure 104 mm[Hg] Edward Justen DO Work Phone: [facility] 03-23-2024 11:38-0400 Body mass index (BMI) [Ratio] 32.24 kg/m2 [facility] Work Phone: [facility] 03-23-2024 11:38-0400 Body weight 82.56 kg [facility] Work Phone: [facility] 03-23-2024 11:38-0400 Diastolic blood pressure 64 mm[Hg] [facility] Work Phone: [facility] 03-23-2024 11:38-0400 Systolic blood pressure 114 mm[Hg] Betsy Christa PA Work Phone: [facility] 03-02-2024 10:24-0400 Body height 160 cm Janie Ria DO Work Phone: [facility] 03-02-2024 10:24-0400 Body mass index (BMI) [Ratio] 34.19 kg/m2 Janie Ria DO Work Phone: [facility] 03-02-2024 10:24-0400 Body weight 87.54 kg Janie Ria DO Work Phone: [facility] 03-02-2024 10:24-0400 Diastolic blood pressure 68 mm[Hg] Janie Theodore DO Work Phone: [facility] 03-02-2024 10:24-0400 Heart rate 74 /min Janie Theodore DO Work Phone: [facility] 03-02-2024 10:24-0400 Respiratory rate 12 /min Janie Theodore DO Work Phone: [facility] 03-02-2024 10:24-0400 SaO2% (BldA) [Mass fraction] 99 % Janie Theodore DO Work Phone: [facility] 03-02-2024 10:24-0400 Systolic blood pressure 118 mm[Hg] Janie Theodore DO Work Phone: [facility] 11-07-2023 13:01-0400 Body weight 76.77 kg Mitul Rdz MD Work Phone: [facility] 11-07-2023 13:01-0400 Diastolic blood pressure 53 mm[Hg] Mitul Rdz MD Work Phone: [facility] 11-07-2023 13:01-0400 Heart rate 66 /min Mitul Rdz MD Work Phone: [facility] 11-07-2023 13:01-0400 Systolic blood pressure 107 mm[Hg] Mitul Rdz MD Work Phone: [facility] 07-19-2023 09:31-0500 Body mass index (BMI) [Ratio] 26.79 kg/m2 [facility] Nurse [facility] 07-19-2023 09:31-0500 Body weight 73.03 kg [facility] Nurse [facility] 07-19-2023 09:31-0500 Diastolic blood pressure 72 mm[Hg] [facility] Nurse [facility] 07-19-2023 09:31-0500 Systolic blood pressure 118 mm[Hg] [facility] Nurse [facility] Healthcare Encounters Encounter Date Encounter Type Care Provider Facility Start: 10-19-2024 End: 10-19-2024 Bamboo flowsheet Edward Justen DO Work Phone: [facility] Start: 10-19-2024 End: 10-22-2024 Bamboo flowsheet Edward Jsuten DO Work Phone: [facility] Start: 10-19-2024 End: 10-22-2024 Clinisync Result Encounter Edward Justen DO Work Phone: [facility] Department Unsolicited Start: 10-19-2024 End: 10-19-2024 Patient encounter procedure Edward Justen DO Work Phone: [facility] Start: 10-19-2024 End: 10-19-2024 Periodic preventive med est patient 18-39 yrs Edward Justen DO Work Phone: [facility] Comment on above: Well woman exam with routine gynecological exam Start: 10-19-2024 End: 10-19-2024 ambulatory EDWARD JUSTEN Not Available Start: 10-01-2024 End: 10-01-2024 Bamboo flowsheet Edward Justen DO Work Phone: [facility] Start: 10-01-2024 End: 10-01-2024 Bamboo flowsheet Edward Justen DO Work Phone: [facility] Start: 10-01-2024 End: 10-01-2024 Office outpatient visit 15 minutes Edward Justen DO Work Phone: [facility] Comment on above: Vaginal discharge; BV (bacterial vaginosis) Start: 10-01-2024 End: 10-01-2024 ambulatory EDWARD JUSTEN Not Available Start: 09-23-2024 End: 09-23-2024 Bamboo flowsheet Betsy BUCHANAN Work Phone: [facility] Start: 09-23-2024 End: 09-23-2024 Bamboo flowsheet Betsy BUCHANAN Work Phone: [facility] Start: 09-23-2024 End: 09-23-2024 ambulatory BETSY GOODWIN Not Available Start: 09-15-2024 End: 09-15-2024 Bamboo flowsheet Edward Justen DO Work Phone: [facility] Start: 09-15-2024 End: 09-16-2024 Bamboo flowsheet Edward Justen DO Work Phone: [facility] Start: 09-15-2024 End: 09-15-2024 Clinisync Result Encounter Edward Justen DO Work Phone: [facility] Unsolicited Start: 09-15-2024 End: 09-16-2024 External Result Encounter Edward Justen DO Work Phone: [facility] External [facility] Unsolicited Start: 09-15-2024 End: 09-15-2024 Office outpatient visit 15 minutes Edward Justen DO Work Phone: [facility] Comment on above: Pelvic pain in femal e; Exposure to STD; Vaginal discharge Start: 09-15-2024 End: 09-15-2024 ambulatory EDWARD JUSTEN Not Available Start: 05-28-2024 End: 05-28-2024 Office outpatient visit 15 minutes Betsy BUCHANAN Work Phone: [facility] Comment on above: Yeast infection Start: 05-28-2024 End: 05-28-2024 ambulatory BETSY GOODWIN Not Available Start: 05-28-2024 End: 05-28-2024 Bamboo flowsheet Betsy BUCHANAN Work Phone: [facility] Start: 05-28-2024 End: 05-30-2024 Bamboo flowsheet Betsy Goodwin PA Work Phone: [facility] Start: 05-28-2024 End: 05-30-2024 External Result Encounter Betsy BUCHANAN Work Phone: [facility] External Department Unsolicited Start: 05-07-2024 End: 05-07-2024 ambulatory LEYDI JEFFERS Facility:[facility] Start: 05-07-2024 End: 05-07-2024 Patient encounter procedure LEYDI JEFFERS [facility] Start: 04-24-2024 ambulatory [facility] Start: 04-21-2024 End: 04-21-2024 Bamboo flowsheet Edward Justen DO Work Phone: [facility] Start: 04-21-2024 End: 04-21-2024 Bamboo flowsheet Edward Justen DO Work Phone: [facility] Start: 04-21-2024 End: 04-21-2024 ambulatory EDWARD JUSTEN Not Available Start: 04-21-2024 End: 04-21-2024 Office outpatient visit 15 minutes Edward Justen DO Work Phone: [facility] Comment on above: Yeast infection; Encounter for fertility planning; Recurrent UTI Start: 04-16-2024 End: 04-16-2024 Patient encounter procedure DO Janie Theodore Work Phone: [facility] [address] Work Phone: Start: 04-16-2024 End: 04-16-2024 ambulatory Igor Becerra [facility] Work Phone: Start: 03-23-2024 End: [...] Start: 03-10-2024 End: 03-10-2024 ambulatory Janie Theodore [facility] Work Phone: Start: 03-10-2024 End: 03-10-2024 Departed Referred DO Janie Theodore Work Phone: [facility] Start: 03-04-2024 End: 03-05-2024 Telephone encounter Janie Theodore DO Work Phone: [facility] Comment on above: Abdominal Pain (Teresa ent scheduled for surgery on 03/10. Patient is complaining of pain radiating from breast bone to belly button and asking if this is normal.) Start: 03-02-2024 End: 03-02-2024 Bamboo flowsheet Janie Theodore DO Work Phone: [facility] [employer] Start: 03-02-2024 End: 03-02-2024 Bamboo flowsheet Janie Theodore DO Work Phone: [facility] Start: 03-02-2024 End: 03-02-2024 Office outpatient new 45 minutes Janie Theodore DO Work Phone: [facility] [employer] [facility] Comment on above: Symptomatic cholelit hiasis (Primary Dx) Start: 03-02-2024 End: 03-02-2024 ambulatory JANIE THEODORE Not Available Start: 02-07-2024 End: 02-07-2024 Clinisync [...] Available Start: 01-06-2024 End: 01-06-2024 ambulatory BETSY GOODWIN Not Available Start: 12-23-2023 End: 12-23-2023 ambulatory EDWARD JUSTEN Not Available Start: 12-05-2023 End: 12-05-2023 ambulatory EDWARD JUSTEN Not Available Start: 11-25-2023 End: 11-25-2023 ambulatory EDWARD JUSTEN Not Available Start: 11-20-2023 End: 11-26-2023 Telephone encounter Jennifer Smiley RN [facility] Start: 11-12-2023 End: 11-12-2023 ambulatory EDWARD JUSTEN Not Available Start: 11-07-2023 End: 11-08-2023 ambulatory EDWARD R JUSTEN [facility] Start: 11-07-2023 End: 11-07-2023 Office consultation new/estab patient 60 min Mitul Rdz MD Work Phone: [facility] Comment on above: 24 weeks gestation o f (Primary Dx); Single umbilical artery; Circumvallate placenta during in second trimester, antepartum; Family history of cystic fibrosis Start: 10-23-2023 End: 10-23-2023 Chart abstracting Scanning Provider External [facility] Start: 10-22-2023 End: 10-23-2023 Chart abstracting Mitul Rdz MD Work Phone: [facility] Start: 07-25-2023 Clinisync Result Encounter Edward Justen DO Work Phone: [facility] External Department Unsolicited Start: 07-25-2023 Clinisync Result Encounter Edward Justen DO Work Phone: [facility] External Department Unsolicited Start: 07-19-2023 End: 07-19-2023 Office outpatient visit 5 minutes [facility] Justen Nurse [facility] Comment on above: GA: 9w0d Start: 07-08-2023 ambulatory Royer Layne acility:[facility] Start: 07-30-2022 End: 07-31-2022 ambulatory DUARTE [...] Start: 06-21-2021 End: 09-19-2021 Recurring Edward CAMPUZANO [facility] Start: 03-05-2020 End: 03-06-2020 Patient encounter procedure [facility] Start: 03-05-2020 End: 03-05-2020 Subsequent hospital visit by physician [facility] Work Phone: [facility] Comment on above: Chronic low back sharon n, unspecified back pain laterality, unspecified whether sciatica present Procedures Date Procedure Procedure Detail Performing Clinician Start: 10-19-2024 End: 10-19-2024 Urnls dip stick/tablet rgnt non-auto w/o micrscp Edward Justen DO Work Phone: Start: 10-19-2024 IGP,APTIMA HPV,AGE GDLN Edward Justen DO Work Phone: Start: 09-15-2024 US PELVIS TRANSVAGINAL Edward Justen DO Work Phone: Start: 09-15-2024 RECURRENT VAGINITIS (HTRX) Edward Justen DO Work Phone: Start: 09-15-2024 End: 09-15-2024 Urnls dip stick/tablet rgnt non-auto w/o micrscp Edward Justen DO Work Phone: Start: 05-28-2024 URINARY TRACT INFECT ION (HTRX) Betsy BUCHANAN Work Phone: Start: 05-28-2024 End: 05-28-2024 Urnls dip stick/tablet rgnt non-auto w/o micrscp Betsy BUCHANAN Work Phone: Start: 04-21-2024 Urnls dip stick/tabl et rgnt non-auto w/o micrscp Edward Justen DO Work Phone: Start: 03-10-2024 HCG QUALITATIVE* Janie Mccoy smitamanny DO Work Phone: Start: 02-07-2024 ALL CBC [...] dip stick/tablet rgnt non-auto w/o micrscp Edward Justen DO Work Phone: Start: 02-08-2022 Delivery of [...] Detail Author Start: 02-11-2032 DTaP,Tdap and Td Vaccines (8 - Td or Tdap) DTaP,Tdap and Td Vaccines (8 - Td or Tdap) [facility] Start: 09-16-2026 Screening for malign ant neoplasm of cervix Pap Smear [facility] Start: 02-15-2025 Influenza vaccination Influenz a Vaccine (Season Ended) [facility] Start: 11-30-2024 End: 11-30-2024 Patient encounter procedure 11/30/2024 10:50 AM EDT Consult [facility] [address] [place] [phone] Edward Campuzano, [address] [place] [address] [facility] Start: 11-06-2024 Tobacco Screening Tobacco Screening [facility] Start: 10-19-2024 End: 10-19-2024 Patient encounter procedure [facility] Comment on above: Arrived Start: 10-01-2024 End: 10-01-2024 Patient encounter procedure [facility] Comment on above: Arrived Start: 09-23-2024 End: 09-23-2024 Patient encounter procedure 09/23/2024 10:20 AM EDT Office Visit [facility] [address] [facility] [phone] Betsy Goodwin PA [address] [place] [address] [facility] Start: 09-15-2024 End: 09-15-2025 US Pelvis US Pelvis w/ TV Imaging Routine Pelvic pain in female Expected: 09/15/2024 (Approximate), Expires: 09/15/2025 [facility] Comment on above: Expected: 09/15/2024 (Approximate), Expires: 09/15/2025 Start: 09-15-2024 End: 09-15-2024 Patient encounter procedure 09/15/2024 11:40 AM EDT Office Visit [facility] [address] [place] [phone] Edward Campuzano, [address] [place] [address] Arrived [facility] Comment on above: Arrived Start: 05-28-2024 End: 05-28-2024 Patient encounter procedure 05/28/2024 2:50 PM EST Office Visit [facility] [address] [place] [address] Betsy Goodwin, PA [address] [place] [address] Arrived [facility] Comment on above: Arrived Start: 04-21-2024 End: 04-21-2024 Patient encounter procedure 04/21/2024 1:50 PM EST Office Visit [facility] [address] [place] [phone] Edward Camupzano, DO [address] [place] [address] [facility] Start: 04-16-2024 [facility] Start: 03-23-2024 End: 03-23-2024 ambulatory 03/23/2024 11:30 AM EDT Visit [facility] [address] [place] [phone] Betsy Goodwin, PA [address] [place] [address] [facility] Start: 03-10-2024 End: 03-10-2024 Patient encounter procedure 03/10/2024 7:30 AM EDT Procedure Visit [facility] Janie Theodore, DO [address] [place] [phone] [facility] Start: 03-02-2024 End: 03-02-2024 Patient encounter procedure 03/02/2024 10:15 AM EDT Office Visit [facility] [address] [place] [address] Ria Janie, DO [address] [place] [address] Arrived [facility] Comment on above: Arrived Start: 02-16-2024 Influenza vaccination [facility] Start: 12-05-2023 End: 12-05-2023 Telemedicine consultation with patient 12/05/2023 3:00 PM EDT Telemedicine [facility] [address] [place] [address] [facility] [address] [facility] [facility] [address] [facility] Start: 11-07-2023 End: 11-07-2023 Patient encounter procedure [facility] Start: 08-19-2023 End: 08-19-2023 Patient encounter procedure 08/19/2023 11:10 AM EST Routine [facility] [address] [place] [phone] Edward Campuzano DO [address] [place] [address] [facility] Start: 07-19-2023 End: 07-19-2024 ABO/Rh ABO/Rh Lab Routine Missed menses Expected: 07/19/2023 (Approximate), Expires: 07/19/2024 [facility] Comment on above: Expected: 07/19/2023 (Approximate), Expires: 07/19/2024 Start: 07-19-2023 End: 07-19-2024 Blood type and Indirect antibody screen panel - Blood Type and screen Lab Routine Missed menses Expected: 07/19/2023 (Approximate), Expires: 07/19/2024 [facility] Work Phone: Comment on above: Expected: 07/19/2023 (Approximate), Expires: 07/19/2024 Start: 07-19-2023 End: 07-19-2024 US Pelvis transvaginal US OB transvaginal Imaging Routine Missed menses Expected: 07/19/2023 (Approximate), Expires: 07/19/2024 [facility] Comment on above: Expected: 07/19/2023 (Approximate), Expires: 07/19/2024 Start: 02-16-2020 Influenza vaccinatio n given Sequential Influenza Vaccine (#1) [facility] Start: 08-31-2015 DTaP,Tdap and Td Vaccines (1 - Tdap) DTaP,Tdap and Td Vaccines (1 - Tdap) [facility] Start: 2014 Adult BMI Screening Adult BMI Screen ing [facility] Start: 2014 Hepatitis C antibody , confirmatory test Hepatitis C Screening [facility] Start: 08-31-2011 HIV screening HIV Screening [facility] Start: 2008 Depression Screening Depression Scre ening [facility] Start: 2008 Tobacco Screening Tobacco Screening [facility] Start: 08-31-2007 Vaccination for [place] papillomavirus HPV Vaccines (1 - 2-dose series) [facility] Start: 08-31-1999 History and physical examination, annual for health maintenance Wellness Visit [facility] Start: 1996 Screening for Chlamy tristan trachomatis Chlamydia Screening [facility] Start: 1996 Screening for malign ant neoplasm of cervix Pap Smear [facility] Start: 1996 Tetanus vaccination Tetanus: Every 1 0yrs [facility] Bacteria identified in Urine by Culture Urine culture Microbiology Routine Missed menses Ordered: 07/19/2023 [facility] Comment on above: Ordered: 07/19/2023 Bacteria identified in Urine by Culture Urine culture Microbiology Routine Yeast infection Ordered: 05/28/2024 [facility] Work Phone: Comment on above: Ordered: 05/28/2024 CBC W Auto Different ial panel - Blood CBC and differential Lab Routine Missed menses Ordered: 07/19/2023 [facility] Comment on above: Ordered: 07/19/2023 CHLAMYDIA TRACHOMATI S (GENITO/STI) CHLAMYDIA TRACHOMATIS (GENITO/STI) Lab Routine Yeast infection Ordered: 05/28/2024 [facility] Comment on above: Ordered: 05/28/2024 CHLAMYDIA TRACHOMATI S (GENITO/STI) CHLAMYDIA TRACHOMATIS (GENITO/STI) Lab Routine Pelvic pain in female Exposure to STD Vaginal discharge Ordered: 09/15/2024 [facility] Comment on above: Ordered: 09/15/2024 Cytology Cervical or vaginal smear or scraping study Pap Smear Pathology and Cytology Routine Well woman exam with routine gynecological exam Ordered: 10/19/2024 [facility] Work Phone: Comment on above: Ordered: 10/19/2024 Hemoglobin A1c measurement Hemoglobin A1c Lab Routine Missed menses Ordered: 07/19/2023 [facility] Comment on above: Ordered: 07/19/2023 Hepatitis B virus surface Ag [Presence] in Serum or Plasma by Immunoassay Hepatitis B surface antigen Lab Routine Missed menses Ordered: 07/19/2023 [facility] Comment on above: Ordered: 07/19/2023 Hepatitis C virus Ab [Presence] in Serum or Plasma by Immunoassay Hepatitis C antibody Lab Routine Missed menses Ordered: 07/19/2023 [facility] Comment on above: Ordered: 07/19/2023 HIV-1/HIV-2 antigen/antibody combination immunoassay HIV-1 and HIV-2 antibodies Lab Routine Missed menses Ordered: 07/19/2023 [facility] Comment on above: Ordered: 07/19/2023 Homogenous nuclear A b pattern [Titer] in Serum [facility] Neisseria gonorrhoea e DNA [Presence] in Unspecified specimen by JONATAN with probe detection Neisseria gonorrhea DNA probe, direct Lab Routine Yeast infection Ordered: 05/28/2024 [facility] Comment on above: Ordered: 05/28/2024 Neisseria gonorrhoea e DNA [Presence] in Unspecified specimen by JONATAN with probe detection Neisseria gonorrhea DNA probe, direct Lab Routine Pelvic pain in female Exposure to STD Vaginal discharge Ordered: 09/15/2024 [facility] Comment on above: Ordered: 09/15/2024 Nuclear Ab [Titer] i n Serum [facility] Reagin Ab [Presence] in Serum by RPR RPR Lab Routine Missed menses Ordered: 07/19/2023 [facility] Comment on above: Ordered: 07/19/2023 Rubella antibody, IgG Rubella an tibody, IgG Lab Routine Missed menses Ordered: 07/19/2023 [facility] Comment on above: Ordered: 07/19/2023 SURESWAB(R) ADVANCED VAGINITIS PLUS, TMA SURESWAB(R) ADVANCED VAGINITIS PLUS, TMA Pathology and Cytology Routine Yeast infection Ordered: 05/28/2024 [facility] Comment on above: Ordered: 05/28/2024 SURESWAB(R) ADVANCED VAGINITIS PLUS, TMA SURESWAB(R) ADVANCED VAGINITIS PLUS, TMA Pathology and Cytology Routine Pelvic pain in female Exposure to STD Vaginal discharge Ordered: 09/15/2024 [facility] Work Phone: Comment on above: Ordered: 09/15/2024 End: 11-06-2024 Unlisted Lab Test Unlisted Lab Test Lab Routine 24 weeks gestation of Single umbilical artery 1 Occurrences starting 11/07/2023 until 11/06/2024 [facility] Work Phone: Comment on above: 1 Occurrences starti ng 11/07/2023 until 11/06/2024 Payers Date Payer Category Payer Self-pay [id number] 2022 Medicaid [id number] 2022 Private Health Insurance [facility] [id number] 1996 Unknown [id number] 2.16.840.1.288226.3.579.2. 903 1996 Unknown [id number] 2.16.840.1.533764.3.579.2. 593 1996 Unknown [id number] 2.16.840.1.415844.3.579.2. 593 1996 Unknown [id number] 2.16.840.1.497806.3.579.2. 593 1996 Unknown [id number] 2.16.840.1.029175.3.579.2. 593 1996 Unknown [id number] 2.16.840.1.666111.3.579.2. 593 1996 Unknown [id number] 2.16.840.1.719859.3.579.2. 593 1996 Unknown [id number] 2.16.840.1.572800.3.579.2. 593 1996 Unknown [id number] 2.16.840.1.296628.3.579.2. 593 1996 Unknown [id number] 2.16.840.1.531729.3.579.2. 593 1996 Unknown [id number] 2.16.840.1.578352.3.579.2. 593 1996 Unknown [id number] 2.16.840.1.443369.3.579.2. 593 1996 Unknown [id number] 2.16.840.1.972935.3.579.2. 593 1996 Unknown [id number] 2.16.840.1.888748.3.579.2. 593 1996 Unknown [id number] 2.16.840.1.778732.3.579.2. 593 1996 Unknown [id number] 2.16.840.1.035014.3.579.2. 593 1996 Unknown [id number] 2.16.840.1.630762.3.579.2. 593 1996 Unknown [id number] 2.16.840.1.752042.3.579.2. 593 1996 Unknown [id number] 2.16.840.1.821138.3.579.2. 593 1996 Unknown [id number] 2.16.840.1.517292.3.579.2. 593 1996 Unknown [id number] 2.16.840.1.150140.3.579.2. 593 1996 Unknown [id number] 2.16.840.1.593802.3.579.2. 593 1996 Unknown [id number] 2.16.840.1.007571.3.579.2. 1286 1996 Unknown [id number] 2.16.840.1.728668.3.579.2. 1286 1996 Unknown [id number] 2.16.840.1.859670.3.579.2. 727 1996 Unknown [id number] 2.16.840.1.922620.3.579.2. 727 1996 Unknown [id number] 2.16.840.1.058663.3.579.2. 1258 1996 Unknown [id number] 2.16.840.1.035930.3.579.2. 1258 1996 Unknown [id number] 2.16.840.1.121598.3.579.2. 1258 1996 Unknown [id number] 2.16.840.1.188093.3.579.2. 1258 1996 Unknown [id number] 2.16.840.1.166087.3.579.2. 125 1996 Unknown [id number] 2.16.840.1.470378.3.579.2. 1258 1996 Unknown [id number] 2.16.840.1.279852.3.579.2. 125 1996 Unknown [id number] 2.16.840.1.544901.3.579.2. 1258 1996 Unknown [id number] 2.16.840.1.115271.3.579.2. 1258 1996 Unknown [id number] 2.16.840.1.221263.3.579.2. 1259 1996 Unknown [id number] 2.16840.1.861359.3.579.2. 9 1996 Unknown [id number] 2.16840.1.974673.3.579.2. 1258 1996 Unknown [id number] 2.16840.1.897348.3.579.2. 1258 1996 Unknown [id number] 2.16840.1.551275.3.579.2. 1258 1996 Unknown [id number] 2.840.1.667345.3.579.2. 1258 1996 Unknown [id number] 2.840.1.408639.3.579.2. 1259 1959 Unknown [id number] 1959 Unknown [id number] Unknown COMMERCIAL COMME RCIAL MISCELLANEOUS [id number] Effective for all dates [id number] 1.2.840.277054.1.13.385.2. 7.3.165980.315 Unknown [id number] Unknown [id number] 840.1.772565.3.579.2. 531 Unknown [id number] 2840.1.630558.3.579.2. 531 Unknown [id number] 2.840.1.038921.3.579.2. 531 Social History Date Type Detail Facility Tobacco smoking stat [facility] Unknown if ever smoked [facility] Start: 1996 Sex Assigned At Not on file [facility] Start: 12-07-2022 End: 11-12-2023 [facility] Start: 12-07-2022 End: 10-22-2023 Tobacco smoking status HIIS Never smoked tobacco [facility] Start: 07-19-2023 End: 10-19-2024 Alcohol intake Current drinker of alcohol (finding) [facility] Start: 12-07-2022 End: 11-12-2023 History of Social function [facility] Start: 12-07-2022 Alcohol Comment 1-2 drinks less than monthly in the past year [facility] Start: 05-31-2023 [facility] Start: 1996 Sex Assigned At Female [facility] Start: 11-29-2022 Gender identity Identifies as female gender (finding) [facility] Start: 11-29-2022 Sexual orientation Heterosexual (finding) [facility] Childcare Unknown [facility] Functional Status Date Assessment Result Facility 05-07-2024 Functional Status Yes [facility] Clinical Notes 01-15-2022 to 10-19-2024 Eloisa Mondragon, DISABILITY AIDE - 10/19/2024 1:00 PM Olivia Mondragon, DISABILITY AIDE - 10/01/2024 10:20 AM Fatou Yoon, [facility] - 09/15/2024 11:40 AM CHANEL Peralta - 05/28/2024 2:50 PM EST Note Date & Type Note Facility 10-19-2024 History of Present illness Narrative Reason for Appointment: Patient ID: Michelle Godinez is a 29 y.o. female who presents for Gynecologic Exam Patient presents today for Annual Exam. MEDICATIONS Current Outpatient Medications Medication Instructions cholecalciferol (Vitamin D3) 25 MCG (1000 UT) tablet 1 tablet, Daily MV & Min w/FA-DHA ( Gummies) 0.18-25 MG chewable tablet 1 each, Daily valACYclovir (VALTREX) 500 mg, Oral, Daily [...] Procedure Laterality Date DILATION AND CURETTAGE 2018 ME TONSILLECTOMY & ADENOIDECTOMY AGE 13/> 2015 WISDOM TOOTH EXTRACTION REVIEW OF SYSTEMS Review of Systems: Review of Systems Constitutional: Negative. HENT: Negative. Eyes: Negative. Respiratory: Negative. Cardiovascular: Negative. Gastrointestinal: Negative. Genitourinary: Positive for pelvic pain. Musculoskeletal: Negative. Skin: Negative. Neurological: Negative. All other systems reviewed and are negative. Hematological: Negative. Endocrine: Negative. Allergic/Immunologic: Negative. OBJECTIVE Objective: Physical Exam Genitourinary: Breasts: Breasts are soft. Right: Normal. Left: Normal. Vitals: Estimated body mass index is 32.42 kg/m as calculated from the following: Height as of 03/02/24: 5' 3 . Weight as of this encounter: 183 lb. BP: 118/72 No LMP recorded (lmp unknown). ASSESSMENT & PLAN ICD-10-CM 1. Well woman exam with routine gynecological exam Z01.419 Pap Smear POCT , urine manually resulted POCT urinalysis dipstick manually resulted Annual Exam: Patient presents today for an annual exam. Patient states she is doing well and has continued complaints of pelvic pain. Pap was obtained without difficulty. Patient has since had workup for spots on liver, but patient will be scheduled for Diagnostic Lap with possible ADINA, possible FOE to see cause of pelvic pain. Patient scheduled for Dx Lap with Possible ADINA/ possible FOE on 12/25/2024. Patient will schedule pre-op appointment prior to leaving office today. Orders Placed This Encounter Procedures POCT , urine manually resulted POCT urinalysis dipstick manually resulted Follow Up: Patient is to return in one year for annual unless needed otherwise. Patient to RTC for Pre-op appointment. Documented by Eloisa Mondragon LPN on behalf of: Edward Campuzano DO documented in this encounter [facility] 10-01-2024 History of Present illness Narrative Reason for Appointment: Patient ID: Michelle Godinez is a 29 y.o. female who presents for Follow-up Patient presents today for Consult appointment. MEDICATIONS Current Outpatient Medications Medication Instructions cholecalciferol (Vitamin D3) 25 MCG (1000 UT) tablet 1 tablet, Daily metroNIDAZOLE (FLAGYL) 500 mg, Oral, 2 times daily, Do not drink alcohol while taking this medication metroNIDAZOLE (Metrogel) 0.75 % vaginal gel Vaginal, 2 times weekly MV & Min w/FA-DHA ( Gummies) 0.18-25 MG chewable tablet 1 each, Daily valACYclovir (VALTREX) 500 mg, Oral, Daily [...] Procedure Laterality Date DILATION AND CURETTAGE 2018 ME TONSILLECTOMY & ADENOIDECTOMY AGE 13/> 2015 WISDOM TOOTH EXTRACTION REVIEW OF SYSTEMS Review of Systems: Review of Systems Constitutional: Negative. HENT: Negative. Eyes: Negative. Respiratory: Negative. Cardiovascular: Negative. Gastrointestinal: Negative. Genitourinary: Positive for pelvic pain and vaginal discharge. Musculoskeletal: Negative. Skin: Negative. Neurological: Negative. All other systems reviewed and are negative. Hematological: Negative. Endocrine: Negative. Allergic/Immunologic: Negative. OBJECTIVE Objective: Physical Exam Constitutional: Appearance: Normal appearance. She is well-developed. Cardiovascular: Rate and Rhythm: Normal rate and [...] nursing note reviewed. Exam conducted with a grants and contracts assistant present. Vitals: Estimated body mass index is 32.74 kg/m as calculated from the following: Height as of 03/02/24: 5' 3 . Weight as of 09/15/24: 184 lb 12.8 oz. BP: No LMP recorded. ASSESSMENT & PLAN ICD-10-CM 1. Vaginal discharge N89.8 metroNIDAZOLE (Flagyl) 500 MG tablet metroNIDAZOLE (Metrogel) 0.75 % vaginal gel 2. BV (bacterial vaginosis) N76.0 metroNIDAZOLE (Flagyl) 500 MG tablet B96.89 metroNIDAZOLE (Metrogel) 0.75 % vaginal gel Patient presents to office to review results from recent US. Patient VU and was given conservative verses surgical management for pelvic pain. Patient will consider surgical options in the future & this can be discussed further at annual appointment. Patient also has complaints of recurrent BV. Patient will be prescribed Flagyl PO for 7 days as well as Metro Gel to be used twice weekly for 3-6 months. Medications sent to [facility] in [place] and pharmacy note added that if patient needs medication further than the first 3 months then more refills will be sent as 3 month supply has currently been sent. Patient to ensure she is scheduled for her annual appointment prior to leaving office today. Documented by Eloisa Mondragon LPN on behalf of: Edward Campuzano DO documented in this encounter [facility] 09-15-2024 History of Present illness Narrative Reason for Appointment: Patient ID: Michelle Godinez is a 29 y.o. female who presents for pelvic pain Patient presents today for Acute Visit. and STD Check. MEDICATIONS Current Outpatient Medications Medication Instructions cholecalciferol (Vitamin D3) 25 MCG (1000 UT) tablet 1 tablet, Daily MV & Min w/FA-DHA ( Gummies) 0.18-25 MG chewable tablet 1 each, Daily valACYclovir (VALTREX) 500 mg, Oral, Daily [...] Procedure Laterality Date DILATION AND CURETTAGE 2018 ME TONSILLECTOMY & ADENOIDECTOMY AGE 13/> 2015 WISDOM TOOTH EXTRACTION REVIEW OF SYSTEMS Review of Systems: Review of Systems Constitutional: Negative. HENT: Negative. Eyes: Negative. Respiratory: Negative. Cardiovascular: Negative. Gastrointestinal: Negative. Genitourinary: Positive for pelvic pain. Musculoskeletal: Negative. Skin: Negative. Neurological: Negative. All [...] nursing note reviewed. Exam conducted with a grants and contracts assistant present. Vitals: Estimated body mass index is 32.74 kg/m as calculated from the following: Height as of 03/02/24: 5' 3 . Weight as of this encounter: 184 lb 12.8 oz. BP: 112/70 No LMP recorded. ASSESSMENT & PLAN ICD-10-CM 1. Pelvic pain in female R10.2 POCT urinalysis dipstick manually resulted POCT , urine manually resulted SURESWAB(R) ADVANCED VAGINITIS PLUS, TMA CHLAMYDIA TRACHOMATIS (GENITO/STI) Neisseria gonorrhea DNA probe, direct CANCELED: POCT , urine manually resulted CANCELED: POCT urinalysis dipstick manually resulted 2. Exposure to STD Z20.2 POCT , urine manually resulted SURESWAB(R) ADVANCED VAGINITIS PLUS, TMA CHLAMYDIA TRACHOMATIS (GENITO/STI) Neisseria gonorrhea DNA probe, direct CANCELED: POCT urinalysis dipstick manually resulted 3. Vaginal discharge N89.8 POCT , urine manually resulted SURESWAB(R) ADVANCED VAGINITIS PLUS, TMA CHLAMYDIA TRACHOMATIS (GENITO/STI) Neisseria gonorrhea DNA probe, direct CANCELED: POCT urinalysis dipstick manually resulted Pt presents with pelvic pain and discharge. Cultures obtained. Pt treated with Nuvessa, sample given. Pt ultrasound order was given. Pt voiced understanding. Pt to return for annual. Return to see Justen to review ultrasound Pt states she is having continued left lower quadrant pelvic pain. We will order US. She will schedule telehealth with me in 2 weeks and follow up with DR Campuzano Documented by Piedad Yoon LPN on behalf of: Edward Campuzano DO documented in this encounter [facility] 05-28-2024 History of Present illness Narrative Reason [...] Procedure Laterality Date DILATION AND CURETTAGE 2018 ME TONSILLECTOMY & ADENOIDECTOMY AGE 13/> 2014 WISDOM [...] nursing note reviewed. Exam conducted with a grants and contracts assistant present. Vitals: Estimated body mass index is 32.62 kg/m as calculated from the following: Height as of 03/02/24: 5' 3 . Weight as of 04/21/24: 184 lb 1.9 oz. BP: No LMP recorded. ASSESSMENT & PLAN Patient presents for vaginal discharge. Patient voiced that she has a sun'aq green/slime discharge on/off since delivery. Patient voiced this happens with wiping. Obtained vaginal cultures without difficulty and urine will also be sent out for culture. Terazol 7 sent to patients pharmacy to be used internally and externally. Patient will await results for further treatment if needed. Documented by Eloisa Mondragon LPN on behalf of: CHANEL Mims documented in this encounter [facility] 05-07-2024 Hospital Discharge instructions Patient Education 05/07/2024 [...] provider. Document Revised: 01/01/2023 Document Reviewed: 01/01/2023 statusboom Patient Education 2023 [employer]. Follow Up Care 04/24/2024 09:40:34 With:ZEYAD LEO, LEYDI Londono, URL Address: [address] [facility] [place] [address] Business (1) When: only if needed [facility] 05-07-2024 Note Patient Education Caregiving Antibiotic Medicine, [...] You have sig (more content not included)... [facility] 04-21-2024 History of Present illness Narrative Reason [...] Diagnosis Date 6 weeks follow-up Acute depression ([facility]) BMI 30.0-30.9,adult Breast lump on right side at 7 o'clock position Fibromyalgia Gallstones Genital herpes Hip pain, right Insomnia, idiopathic Miscarriage 2018 Spondyloarthropathy HISTORY PAST MEDICAL HISTORY SOCIAL HISTORY Past Medical History: Diagnosis Date 6 weeks follow-up Acute depression ([facility]) BMI 30.0-30.9,adult Breast [...] Procedure Laterality Date DILATION AND CURETTAGE 2018 ME TONSILLECTOMY & ADENOIDECTOMY AGE 13/> 2015 WISDOM TOOTH EXTRACTION REVIEW OF SYSTEMS Review of Systems: Review of Systems OBJECTIVE Objective: OBGyn Exam Vitals: Estimated body mass index is 32.62 kg/m as calculated from the following: Height as of 03/02/24: 5' 3 . Weight as of this [...] Edward Campuzano DO documented in this encounter [facility] 03-23-2024 History of Present illness Narrative Reason [...] Procedure Laterality Date DILATION AND CURETTAGE 2018 ME TONSILLECTOMY & ADENOIDECTOMY AGE 13/> 2015 WISDOM TOOTH EXTRACTION REVIEW OF SYSTEMS Review of Systems: Review of Systems OBJECTIVE Objective: OBGyn Exam Vitals: Estimated body mass index is 32.24 kg/m as calculated from the following: Height as of 03/02/24: 5' 3 . Weight as of this [...] of: CHANEL Mims documented in this encounter [facility] 03-02-2024 History of Present illness Narrative General [...] time. She states that she was at [facility] ER yesterday due to the pain [...] Procedure Laterality Date DILATION AND CURETTAGE 2018 ME TONSILLECTOMY & ADENOIDECTOMY AGE [age] WISDOM TOOTH EXTRACTION Family History Problem Relation [...] Procedure Laterality Date DILATION AND CURETTAGE 2018 ME TONSILLECTOMY & ADENOIDECTOMY AGE 132014 WISDOM TOOTH EXTRACTION Tobacco Use: Unknown (11/07/2023) Received from [facility] Patient History Smoking Tobacco Use: Never Smokeless [...] Milka Theodore DO documented in this encounter [facility] 11-20-2023 Miscellaneous Notes Spoke with michelle and fern (spouse) about process for carrier screening for FOB. Both agreeable. Michelle was able to send copy of fern's insurance for the carrier order to be placed. Lexi Caballero aware of plan. Patient to see Lexi on 12/04 documented in this encounter [facility] [employer] 11-20-2023 Telephone encounter Note Spoke with michelle and fern (spouse) about process for carrier screening for FOB. Both agreeable. Michelle was able to send copy of fern's insurance for the carrier order to be placed. Lexi Caballero aware of plan. Patient to see Lexi on 12/04 [facility] 11-20-2023 Miscellaneous Notes Images from the original [...] prior to that documented in this encounter [facility] 11-20-2023 Telephone encounter Note Images from the [...] arrange for partner screening prior to that [facility] 11-07-2023 History of Present illness Narrative [facility] Maternal- Medicine Consult Note Reason For Consult: [...] autism FOB paternal aunt paternal grandfather ? Oemwwslr-gje-trrbu syndrome Denies smoking, alcohol or other substance [...] regardin. 24 weeks gestation of - PNV no.[id number] 400 mcg-35 mg- 25 mg-5 mg tablet,chewable; Take 2 gummies daily during the Dispense: 60 tablet; Refill: 6 - Unlisted Lab Test; Future 2. Single umbilical artery - PNV no.016-[id number]-hmx-lceu 400 mcg-35 mg- 25 mg-5 mg tablet,chewable; [...] is a concern for a history of Otzhyahm-ghm-njyqe syndrome. This can be an autosomal dominant condition. She tells me that the father of the baby does not have the condition however he has not also been tested. Ztguarht-iks-hfihe syndrome can present with a variable degree [...] Please monitor patient mood Please notify the systems qa analyst about the family history. I also recommended to the patient to notify the systems qa analyst about her other children so they can be examined and further tested if indicated Plan reviewed with patient. She vocalized understanding all questions answered. The patient is to continue with routine care in your office Thank you for allowing me to participate in her care. Please contact me if you have any concerns. Mitul Rdz MD, FACOG (she/hers) Maternal- Medicine [facility] [address] [place] [address] [facility], the CDC, and other organizations representing maternal and public health professionals recommend that , , and lactating people and those considering receive the COVID-19 vaccination. Vaccination is the best method to reduce maternal and complications of SARS-CoV-2 infection. This document was created with [employer] technology. Though I make every effort to review the dictation as it is transcribed, on occasion the spoken word can be misinterpreted by the technology leading to inappropriate words, phrases, or sentences. This note is addressed to the requesting provider as a consultation for clinical guidance. Specific medical abbreviations are occasionally used and those are generally approved by the [place]?Board of?Obstetrics and?Gynecology?as well as?Trace s abbreviations. The above plan of care was based solely on the diagnoses for which a consultation was requested. ?More frequent testing may be indicated based on her other medical/obstetrical conditions. The management of other or medical conditions is beyond the scope of requested consultation and will continue to be followed by the primary cord cutter or primary care provider. Note to patient: The Century Cures Act makes medical notes like these [...] yes Have you been seen here at [facility] in a previous ? no Recent ER visits or hospitalizations? Patient was seen on Saturday or Saturday for consistent contractions that have since resolved. Patient was told there were no changes to the cervix. Bring blood sugar log or meter with you today? (Please bring them with you for every visit at [facility]) Traveled outside the country in the past 6 month no Any concerns that you would like me to mention to the provider today? no Blood drawn for carrier screening testing. Patient tolerated well. Specimen sent to lab documented in this encounter [facility] 07-19-2023 History of Present illness Narrative Reason [...] Procedure Laterality Date DILATION AND CURETTAGE 2018 ME TONSILLECTOMY & ADENOIDECTOMY AGE 12/2014 WISDOM TOOTH [...] sent for nausea to pharmacy. Pt desires [place] [facility] and understands to have it done at 10 weeks along w/her labs. Follow Up: Patient is to have labs drawn at directed and return to office for initial OB appointment with provider. Patient may call office as needed with any concerns or questions. Nurse Visit Completed by: Cori Daniel MA documented in this encounter [facility] 01-16-2022 Note OB ultrasound for bi ophysical [...] Cecelia FOOTE Date: 2022-01-16 21:33 [facility] 01-16-2022 Note OB ultrasound for bi ophysical [...] Cecelia FOOTE Date: 2022-01-16 21:33 [facility] 01-15-2022 Note PROCEDURE: US KIDNEY S, 01/15/2022, [...] authenticated by: IGOR DIAZ Date: 2022-01-15 10:10 [facility] Evaluation + Plan note No data available for this section [facility] Evaluation note Diagnosis Missed menses Nausea Nausea alone documented in this encounter [facility] HealthcareEvaluation noteNo assessment information availableC[facility] Work Phone: Evaluation note* Diagnosis 6 weeks follow-up documented in this encounter [facility] HealthcareEvaluation note* Diagnosis Yeast infection Encounter for fertility planning Recurrent UTI Urinary tract infection, site not specified documented [facility] encounter [facility]* Diagnosis Symptomatic cholelithiasis- Primary documented in this encounter [facility]* Diagnosis Yeast infection documented in this encounter [facility] HealthcareEvaluation note* Diagnosis 24 weeks gestation of - 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 Circumvallate placenta during in second trimester, antepartum Family history of cystic fibrosis Family history of other endocrine and metabolic diseases documented in this [facility]* Diagnosis Pelvic pain in female Unspecified symptom associated with female genital organs Exposure to STD Vaginal discharge Leukorrhea, not specified as infective documented in this encounter [facility] HealthcareEvaluation note* Diagnosis Vaginal discharge Leukorrhea, not specified as infective BV (bacterial vaginosis) Unspecified vaginitis and vulvovaginitis documented in this encounter [facility] HealthcareEvaluation note* Diagnosis Well woman exam with routine gynecological exam Routine gynecological examination documented in this encounter [facility] HealthcareHospital Discharge instructions No data available for this section [facility] Center[facility]ructionsNot on filedocumented in this encounter [facility] SystemInstructionsNot on filedocumented in this encounter [facility]* Attachments The following attachments cannot be sent through Care Everywhere. * Preeclampsia (Italian) * Movement (Italian) [facility] No data available for this section [facility] [place] Summary Purpose Family History No Family History Records FoundNo Family History Records FoundNo Family History Records FoundNo Family History Records FoundNo Family History Records Found No data available for this section No Family History Records FoundNo Family History Records Found Advance Directives No Advanced Directives Records FoundDocuments on File Type Date Recorded 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 Advance Directives and Livin g Will 03/05/2020 2:18 PM Advance Directive Response Recorded Date/ Time Advance Directives No February 09, 2017 9:35am Assessments Diagnosis Chronic low back pain, unspecified back pain laterality, unspecified whether sciatica present Additional Source Comments INFORMATION SOURCE (unrecogn ized section and content) DATE CREATED AUTHOR 11/08/2018 [facility] DATE CREATED AUTHOR AUTHOR'S ORGANIZ ATION 03/21/2020 [facility] DATE CREATED AUTHOR AUTHOR'S ORGANIZ ATION 08/04/2022 [facility] DATE CREATED AUTHOR AUTHOR'S ORGANIZ ATION 11/09/2023 [facility] DATE CREATED AUTHOR AUTHOR'S ORGANIZ ATION 04/27/2024 [facility] DATE CREATED AUTHOR AUTHOR'S ORGANIZ ATION 05/10/2024 [facility] DATE CREATED AUTHOR AUTHOR'S ORGANIZ ATION 10/22/2024 [facility] EPIC Reason for Visit (unrecogniz [...] time. She states that she was at [facility] ER yesterday due to the pain and they gave her pain medicine. Reason Onset Date Comments Abdominal Pain 03/04/2024 Patient schedule d for surgery on 03/10. Patient is complaining of pain radiating from breast bone to belly button and asking if this is normal. Reason Comments Vessel cord Reason Comments pelvic pain Reason Comments Follow-up Reason Comments Gynecologic Exam Care Teams (unrecognized sec tion and content) Team Status: Inactive Member Role Status Dates Janie Theodore DO Attending Provider Active Star t: March 10, 2024 End: March 10, 2024 Archivist Political History Relationship Specialty Start Date End Date Raudel Osborne MD [address] [place] [address] PCP - General Family Medicine 03/02/24 Team Status: Inactive Member Role Status Dates Igor Becerra MD Attending Provider Active St art: April 16, 2024 End: April 16, 2024 Archivist Political History Relationship Specialty Start Date End Date Raudel Osborne MD [address] [place] [address] PCP - General Family Medicine 03/02/24 Archivist Political History Relationship Specialty Start Date End Date Raudel Osborne MD [address] [facility] [place] [address] PCP - General Family Medicine 03/02/24 Edward Campuzano DO [facility] [address] [place] [address] PCP - [facility] 03/17/24 Archivist Political History Relationship Specialty Start Date End Date Raudel Osborne MD [address] [facility] [place] [address] PCP - [facility] 03/02/24 Archivist Political History Relationship Specialty Start Date End Date Raudel Osborne MD [address] [facility] [place] [address] PCP - General [facility] 03/02/24 Archivist Political History Relationship Specialty Start Date End Date Raudel Osborne MD [address] [facility] [place] [address] PCP - General Family Medicine 03/02/24 Edward Campuzano DO [facility] [address] [place] [address] PCP - [facility] 03/17/24 Archivist Political History Relationship Specialty Start Date End Date Raudel Osborne MD [address] [facility] [place] [address] PCP - General Family Medicine 03/02/24 Edward Campuzano DO [facility] [address] [place] [address] PCP - [facility] 03/17/24 Archivist Political History Relationship Specialty Start Date End Date Raudel Osborne MD [address] [facility] [place] [address] PCP - General Family Medicine 03/02/24 Edward Campuzano DO [address] [place], [place] [address] [facility] PCP - [facility] 03/17/24 Archivist Political History Relationship Specialty Start Date End Date Raudel Osborne MD [address] [place] [address] PCP - [facility] 03/02/24 Archivist Political History Relationship Specialty Start Date End Date Raudel Osborne MD [address] [facility] [address] PCP - General [facility] 03/02/24 Edward Campuzano DO [address] [place], [place] [address] [place] [id number] PCP - [facility] 03/17/24 Archivist Political History Relationship Specialty Start Date End Date Raudel Osborne MD [address] [place] [address] PCP - General Family Medicine 03/02/24 Edward Campuzano DO [facility] [address] [place] [address] PCP - [facility] 03/17/24 Archivist Political History Relationship Specialty Start Date End Date Raudel Osborne MD [address] [facility] [place] [address] PCP - General Family [facility] 03/02/24 Edward Campuzano DO [address] [place] [address] PCP - [facility] 03/17/24 Archivist Political History Relationship Specialty Start Date End Date Raudel Osborne MD PCP - [facility] 03/02/24 Edward Campuzano DO [address] [place] [address] PCP - [facility] 03/17/24 Archivist Political History Relationship Specialty Start Date End Date Raudel Osborne MD PCP - [facility] 03/02/24 Edward Campuzano DO [address] [place] [address] [facility] 03/17/24 Goals (unrecognized section and content) Goals may [...] BE BASED ON THE PRIMARY CLINICAL RECORDS. [facility]. provides no warranty or guarantee of the accuracy or completeness of information in this document.
== END 2024-10-27 08:29 | disposition home or self-care (01) ==
LOC: CT 08:28
PROVIDERS: PCP Nurse Practitioner Family; Visit Provider Nurse Practitioner Family
DX: K76.0 Fatty (change of) liver, not elsewhere classified (principal); K42.9 Umbilical hernia without obstruction or gangrene
CPT/HCPCS: 74170; Q9967

== ENCOUNTER 2024-11-05 12:58 | Outpatient (OUT) | payer OTHER, SELFPAY ==
--- OUTSIDE RECORDS SUMMARY | 2024-10-19 12:57 | XMS_ITS ---
Author Name Auto Generated Organization OHIP Support Name Relationship Address Phone PRADIP LINDQUIST Next of Kin [address] [place] [address] + WESTLEY GODINEZER Next of Kin [address] [facility] [place] [address] + PRADIP LINDQUIST Next of Kin [address] [place] [address], [place] [address] + WOOD, ALONSO Next of Kin [address] [place] [address], [place] [address] + PRADIP LINDQUIST Next of Kin [address] [place] [address], [place] [address] + WOOD, ALONSO Next of Kin [address] [facility] [place] [address] + PRADIP LINDQUIST Next of Kin [address] [facility] [place] [address] + WOOD, ALONSO Next of Kin [address] [facility] [place] [address] + PRADIP LINDQUIST Next of Kin [address] [place] [address], [place] [address] + HERBERT, ALONSO Next of Kin [address] [facility] [place] [address] + PRADIP LINDQUIST Next of Kin [address] [facility] [place] [address] + WOOD, ALONSO Next of Kin [address] [facility] [place] [address] + Pradip Lindquist Next of Kin [address] [facility] [place] [address] + Wood, Alonso Next of Kin [address] [place] [address] + PRADIP LINDQUIST Next of Kin [address] [facility] [place] [address] + WOOD, ALONSO Next of Kin [address] [facility] [place] [address] + Hay, Pradip Next of Kin [address] [place] [facility] [address] + Wood, Alonso Next of Kin [address] [place] [address] + HAY, PRADIP Next of Kin [address] [facility] [place] [address] + WOOD, ALONSO Next of Kin [address] [facility] [place] [address] + HAY, PRADIP Next of Kin [address] [facility] [place] [address] + WOOD, ALONSO Next of Kin [address] [facility] [place] [address] + HAY, PRADIP Next of Kin [address] [place] [address], [place] [address] + WOOD, ALONSO Next of Kin [address] [facility] [place] [address] + HAY, PRADIP Next of Kin [address] [facility] [place] [address] + WOOD, ALONSO Next of Kin [address] [facility] [place] [address] + HAY, PRADIP Next of Kin [address] [facility] [place] [address] + WOOD, ALONSO Next of Kin [address] [place] [address], [place] [address] + HAY, PRADIP Next of Kin [address] [facility] [place] [address] + WOOD, ALONSO Next of Kin [address] [facility] [place] [address] + HAY, PRADIP Next of Kin [address] [facility] [place] [address] + WOOD, ALONSO Next of Kin [address] [facility] [place] [address] + HAY, PRADIP Next of Kin [address] [place] [address], [place] [address] + WOOD, ALONSO Next of Kin [address] [place] [address] + PRADIP LINDQUIST Next of Kin [address] [place] [address] + ALONSO GODINEZ Next of Kin [address] [place] [address] + PRADIP LINDQUIST Next of Kin Unknown Unavailable AMEENA, PRADIP Next of Kin Unknown Unavailable ALONSO GODINEZ Next of Kin Unknown Unavailable PRADIP LINDQUIST Next of Kin Unknown Unavailable AMEENA, PRADIP Next of Kin Unknown Unavailable ALONSO GODINEZ Next of Kin Unknown Unavailable Care Team Providers Care Manager Child Name Role Phone DONNIE CAMPUZANOY R Referring Unavailable EBRT RDZ Attending Unavailable JOSE MIGUEL CAMPUZANO Referring Unavailable Feliciano Rollins Attending Unavailable Feliciano Rollins Admitting Unavailable Fernando Becerra Admitting Unavailable Hernan, Fernando Attending Unavailable FELIPA JEFFERS Attending Unavailab le KILO, JOSE MIGUEL Attending Unavailable ROCIO, MICHAEL Attending Unavailable KILO, JOSE MIGUEL Attending Unavailable KILO, JOSE MIGUEL Attending Unavailable KILO, JOSE MIGUEL Attending Unavailable KILO, JOSE MIGUEL Attending Unavailable KILO, JOSE MIGUEL Attending Unavailable KILO, JOSE MIGUEL Attending Unavailable ROCIO, MICHAEL Attending Unavailable KILO, JOSE MIGUEL Attending Unavailable KILO, JOSE MIGUEL Attending Unavailable KILO, JOSE MIGUEL Attending Unavailable ARBEN, FELICIANO Attending Unavailable ROCIO, MICHAEL Attending Unavailable KILO, JOSE MIGUEL Attending Unavailable ROCIO, MICHAEL Attending Unavailable PROBLEMS DATE TYPE CONDITION / CODE ATTENDING STATUS [facility] 04/16/2024 Unknown Myalgia, unspeci fied site / M79.10(ICD-10) Fernando Becerra [facility] 11/07/2023 Unknown Encounter for ot her specified screening / Z36.89(ICD-10) [facility] 11/07/2023 Unknown Maternal care fo r (suspected) abnormality and damage, unspecified, not applicable or unspecified / O35.9XX0(ICD-10) [facility] 11/07/2023 Unknown Malformation of placenta, unspecified, 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(ICD-10) [facility] 11/07/2023 Unknown 24 weeks gestati on of / Z3A.24(ICD-10) [facility] 11/07/2023 Unknown 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) [facility] Unknown Family history o f other endocrine, nutritional and metabolic diseases / Z83.49(ICD-10) [facility] 11/07/2023 Unknown Vessel cord / UNK(Unknown) [facility] PROCEDURES No Procedure Records Found RESULTS UROLOGY OFFICE/CLINIC NOTE Observed: 3:25 PM Status: F Source: [facility] Urology Office/Clinic Note Chief Complaint recurrent utis HPI Staff 28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 Otherwise f/u PRN. Ordered: 19310 Measure Post Void residual urine and/or bladder capacity by US- non- imaging E&M of New Patient Moderate 45-59 Min 62477 Urnls Dip Stick Auto w/o Microscopy POC 66707 Follow-up With When Contact Information LEYDI JEFFERS PA-C E, URL Only if needed [address] [place] [address] Business (1) Additional Instructions: Patient Education Antibiotic Medicine, [...] Protein Urine Dipstick: Trace (05/07/24 14:28:00) Specific [place] Urine Dipstick: >=1.030 (05/07/24 14:28:00) Urine Appearance Urine Dipstick: Clear (05/07/24 14:28:00) Urine Color Urine Dipstick: Yellow (05/07/24 14:28:00) Urobilinogen Urine Dipstick: Normal 0.2-1 EU/dl (05/07/24 14:28:00) pH Urine Dipstick: 7 (05/07/24 14:28:00) Result Comment: Electronical ly Signed By: LEYDI JEFFERS PA-C.br\Date and Time Signed: 05/07/24 15:26 EST PATIENT EDUCATION Observed: 05/07/2024 3:25 PM Status: F Source: [facility] Patient Education Caregiving Antibiotic Medicine, Adult Antibiotic [...] help right away if: ??? You have signs of a severe allergic reaction to antibiotics. If you have any of these signs, stop taking the antibiotic right away. Signs may include: ? Raised, itchy, red bumps on your skin (hives). ? Skin rash. ? Trouble breathing. ? High-pitched whistling sounds when you breathe, most often when you breathe out (wheezing). ? Swelling anywhere on your body. ? Feeling dizzy. ? Vomiting. ??? You have signs of liver problems, such as: ? Dark or blood-colored urine. ? Yellow color to your skin. ? Bruising or bleeding easily. ??? You have severe diarrhea, bloody diarrhea, or stomach cramps. ??? You have a severe headache. These symptoms may be an emergency. Get help right away. Call 911. ??? Do not wait to see if the symptoms will go away. ??? Do not drive yourself to the hospital. This information is not intended to replace advice given to you by your health care provider. Make sure you discuss any questions you have with your health care provider. Document Revised: 01/01/2023 Document Reviewed: 01/01/2023 ArriveBefore Patient Education ? 2023 [employer]. CREATINE KINASE Collected: 04/16/2024 3:52 PM Status : F Source: [facility] TYPE CODE TESTS RESULT OUT OF RANGE REFERENCE UNITS LAB CK Creatine Kinase 47 Normal 30-223 U/L Result Comment: PERFORMED BY : [place] [address] PATHOLOGIST PHOTOCOMPOSING MACHINE OPERATOR BRAD LINDSEY M.D. Performed By: #### CK #### [address] #### COLE #### [facility] , COLE ANTINUCLEAR ANTIBODIES Collected: 1 3:52 PM Status: F Source: [facility] TYPE CODE TESTS RESULT OUT OF RANGE REFERENCE UNITS LAB ANAIFAX Antinuclear Abs, IFA Positive Abnormal Alert . Result Comment: Negative <1 :80 Borderline 1:80 Positive >1:80 LAB SPECKLE Speckled Pattern 1:320 High . Result Comment: Dense Fine S peckled pattern is noted. This pattern suggests the presence of DFS70 antibody which has a low prevalence in systemic autoimmune rheumatic diseases. ICAP nomenclature: AC-2,4,5,29 LAB NUC DOT PAT Nuclear Dot Pattern 1:1280 High . Result Comment: ICAP nomencl ature: AC-6,7 LAB COLE IFA NOTE1 Note 1 Comment . Result Comment: Pattern Pote ntial Disease Association Homogeneous Systemic Lupus Erythematosus, Drug Induced Systemic Lupus Erythematosus, Chronic Autoimmune hepatitis, Juvenile Idiopathic Arthritis Speckled Sjogren Syndrome, Systemic Lupus Erythematosus, Subacute Cutaneous Lupus, Lupus, Congenital Heart Block, Mixed Connective Tissue Disease, Scleroderma-diffuse, Scleroderma-Autoimmune Myositis Overlap Syndrome, Systemic Lupus Evvwrzjajeasa-Mvoylizijrz-Uvxodmypei Myositis Overlap Syndrome, Systemic Autoimmune Rheumatic Disease, [...] Cytopenias, Linear Scleroderma, Antiphospholipid Syndrome Performed at: - [facility] [address] [id number] Audio Engineer: Chiki Santoyo PhD, Phone: [phone] PERFORMED BY: [place] [address] PATHOLOGIST PHOTOCOMPOSING MACHINE OPERATOR BRAD LINDSEY M.D. Performed By: #### CK #### [address] #### COLE #### [facility] , L Observed: 03/10/2024 10:12 AM Status: F Source: [facility] Specimen: [id number] Received: 03/10/24 Status: ADRIANNE Wilks Num: [id number] Spec Type: Surgical Subm Dr: Feliciano Rollins DO Tissues: A Gallbladder (GALLBLADDER) Procedures: HE, Gross/Micro L3 Age/ Patient Sex Location Account Attending Physician Sandy Godinez 28/F [facility] [id number] Feliciano Rollins DO SPEC NUM: [id number] RECD: 03/10/24 STATUS: ADRIANNE WILKS NUM: [id number] DOE: 03/10/[address]: Feliciano Rollins DO ENTERED: 03/10/[address] [facility] [address]: Peng Noyola SPEC TYPE: Surgical DEPT: FARHANA LOPEZ ENTERED BY: [id number] RECV BY: [id number] ORDERED: HE, Gross/Micro L3 ORDERED: HE, Gross/Micro [...] cystic duct is compacted with a calculus. Loading Dock Hand sections are submitted in cassette A1. DM ----- ------- Specimen: [id number] Received: 03/10/24 Status: ADRIANNE Wilks Num: [id number] Spec Type: Surgical Subm Dr: Feliciano Rollins DO Tissues: A Gallbladder (GALLBLADDER) Procedures: Corky WILLIS/Jaquelin L3 ----- ------- Patient: Sandy Godinez [id number] (Continued) ----- ------- Specimen: [id number] Received: 03/10/24 (Continued) Signed (signature on file) Tali Martinez MD 03/16/241921 ----- ------- Specimen: [id number] Received: 03/10/24 Status: ADRIANNE Wilks Num: [id number] Spec Type: Surgical Subm Dr: Feliciano Rollins DO Tissues: A Gallbladder (GALLBLADDER) Procedures: Corky WILLIS/Jaquelin L3 ----- ------- Patient: Sandy Godinez [id number] (Continued) ----- ------- Specimen: [id number] Received: 03/10/24 (Continued) Microscopic Description Microscopic examinations are performed supporting the above interpretation CPT Codes 33973 ----- ------- ----- ------- Specimen: [id number] Received: 03/10/24 Status: ADRIANNE Wilks Num: [id number] Spec Type: Surgical Subm Dr: Feliciano Rollins DO Tissues: A Gallbladder (GALLBLADDER) Procedures: Corky WILLIS/Jaquelin L3 ----- ------- Patient: Sandy Godinez [id number] (Continued) ----- ------- Signed (signature on file) Tali Martinez MD 03/16/241921 ALLERGIES DATE TYPE / CODE NAME / CODE REACTION SEVERITY SOURCE 10/22/2023 DRUG/[id number](S NOMED CT) ADHESIVE TAPE-SILICONES Itching [facility] 06/10/2017 Drug Allergy/54466878 2(SNOMED CT) No Known Allergies/F448857868 (RXNORM) [facility] /164244154(SNO MED CT) No Known Allergies [facility] ENCOUNTERS ADMIT/DISCHARGE ACCOUNT NUMBER ADMITTING ENCOUNTER CLASS LOCATION SOURCE 10/19/2024/10/20/19 [id number] Ambulatory Building:NOM S [facility] OB [facility] 10/01/2024/10/02/19 [id number] Ambulatory Building:NOM S [facility] OB [facility] 09/23/2024/09/24/19 [id number] Ambulatory Building:NOM S [facility] 09/15/2024/09/16/19 25 [id number] Ambulatory Building:NOM S [facility] 05/28/2024/05/28/20 24 [id number] Ambulatory Building:NOM S [facility] 05/07/2024/05/07/20 24 [id number] Ambulatory [facility] [place] : Exam 1 [facility] 04/24/2024 [id number] Ambulatory EU [place]:EU [place] [facility] 04/21/2024/04/21/20 24 [id number] Ambulatory Building:NOM S [facility] 04/16/2024/04/16/20 24 [id number] [facility]03/23/20 24 [id number] Ambulatory Building:NOM S [facility] 03/10/2024/03/10/20 24 [id number] [facility]o Rollins [facility] 03/02/2024/03/02/20 24 [id number] Ambulatory Building:[facility] 02/03/2024/02/03/20 24 [id number] Ambulatory Building:NOM S [facility] 01/27/2024/01/27/20 24 [id number] Ambulatory Building:NOM S [facility] 01/20/2024/01/20/20 24 [id number] Ambulatory Building:NOM S [facility] 01/06/2024/01/06/20 24 [id number] Ambulatory Building:NOM S [facility] 12/23/2023/12/23/19 24 [id number] Ambulatory Building:NOM S [facility] 12/05/2023/12/05/19 24 [id number] Ambulatory Building:NOM S [facility] 11/25/2023/11/25/19 24 [id number] Ambulatory Building:NOM S [facility] 11/12/2023/11/12/19 [id number] Ambulatory Building:NOM S [facility] 11/07/2023/11/07/19 [id number] Ambulatory Building:PTH _MFMUS [facility] 11/07/2023/11/07/19 [id number] Ambulatory Buildin 4 [facility] PAYERS ENCOUNTER GUARANTOR PAYER SUBSCRIBER SOURCE 10/19/2024 SANDY ACEVEDO: [place] [address]Iis: (HP) Primary Insurance:[facility] MEDICA[facility]Policy Number: [id number] Date:2022-02-22 SANDY CRUZB: [id number] [place] [address] [facility] 10/01/2024 SANDY CRUZB: [place] [address]Tel: (HP) Primary Insurance:[facility] [place] MEDICA[place]Policy Number: [id number] Date:2022-02-22 SANDY CRUZB: [id number] [place] [address] [facility] 09/23/2024 SANDY CRUZB: [place] [address]Tel: (HP) Primary Insurance:[employer] MEDICAIDPolicy Number: [id number] Date:2022-02-22 SANDY CRUZB: [id number] [place] [address] [facility] 09/15/2024 SANDY CRUZB: [place] [address]Rlq: (HP) Primary Insurance:[employer] MEDICAIDPolicy Number: [id number] Date:2022-02-22 SANDY CRUZB: [id number] [place] [address] [facility] 05/28/2024 SANDY CRUZB: [place] [address]Qfu: (HP) Primary Insurance:[facility] [place] MEDICAIDPolicy Number: [id number] Date:2022-02-22 SANDY GODINEZDOB: [id number] [place] [address] [facility] 05/07/2024 KARENJESE GODINEZB: [facility]el: ~~(4 1 (HP) Primary Insurance:CARESOURCEPo licy Number: [id number] Date:[id number] [address] [address]IG: [facility] 04/24/2024 SANDY GODINEZDOB: [facility]Tel: ~~(4 1 (HP) Primary Insurance:CARESOURCEPo licy Number: [id number] Date:[id number] [address]HG: [facility]dy [facility] 04/21/2024 SANDY GODINEZDOB: [place] [address]Klw: (HP) Primary Insurance:[facility] [place] MEDICAIDPolicy Number: [id number] Date:2022-02-22 SANDY GODINEZDOB: [id number] [place] [address] [facility] 04/16/2024 Karenjese Godinez[address] [place] [address]Kjw: (HP) Primary Insurance:CaresourcePo licy Number: [id number] Date:[id number] [address]RZ: Sandy CruzB: [id number] [place] [address]Zui: (HP) [facility] 04/16/2024 Secondary Insurance:Self PayPolicy Number: Effective Date:2024-04-16 NOT GIVENUNK [facility] 03/23/2024 SANDY ACEVEDO: [place] [address]Plc: (HP) Primary Insurance:[employer] MEDICAIDPolicy Number: [id number] Date:2022-02-22 SANDY CRUZB: [id number] [place] [address] [facility] 03/10/2024 Sandy Godinez[address] [place], [place] [address]Cic: (HP) Primary Insurance:Self PayPolicy Number: Effective Date:2024-03-10 NOT GIVENUNK [facility] 03/02/2024 SANDY CRUZB: [place] [address]Qzy: (HP) Primary Insurance:[employer] MEDICAIDPolicy Number: [id number] Date:2022-02-22 SANDY CRUZB: [id number] [place] [address] [facility] 02/03/2024 SANDY CRUZB: [place] [address]Doj: (HP) Primary Insurance:[employer] MEDICAIDPolicy Number: [id number] Date:2022-02-22 SANDY CRUZB: [id number] [place] [address] [facility] 01/27/2024 KARENJESE Barry HERBERTDOB: [place] [address]Jgx: (HP) Primary Insurance:[facility] MEDICAIDPolicy Number: [id number] Date:2022-02-22 KARENJESE Barry GODINEZDOB: [id number] [place] [address] [facility] 01/20/2024 SANDY GODINEZDOB: [place] [address]Gxb: (HP) Primary Insurance:[facility] MEDICAIDPolicy Number: [id number] Date:2022-02-22 KARENJESE Barry HERBERTDOB: [id number] [place] [address] [facility] 01/06/2024 SANDY GODINEZDOB: [place] [address]Nqn: (HP) Primary Insurance:[facility] MEDICAIDPolicy Number: [id number] Date:2022-02-22 KARENJESE Barry HERBERTDOB: [id number] [place] [address] [facility] 12/23/2023 SANDY GODINEZDOB: [place] [address]Sye: (HP) Primary Insurance:[facility] [place] MEDICAIDPolicy Number: [id number] Date:2022-02-22 SANDY GODINEZDOB: [id number] [place] [address] [facility] 12/05/2023 SANDY GODINEZDOB: [place] [address]Gso: (HP) Primary Insurance:[facility] [place] MEDICAIDPolicy Number: [id number] Date:2022-02-22 SANDY GODINEZDOB: [id number] [place] [address] [facility] 11/25/2023 SANDY GODINEZDOB: [place] [address]Ocq: (HP) Primary Insurance:[facility] [place] MEDICAIDPolicy Number: [id number] Date:2022-02-22 [facility] COUNTY[facility] Reddy WOODDOB: [id number] [place] [address] [facility] 11/12/2023 [facility] COUNTYJESE GODINEZDOB: [place] [address]Itr: (HP) Primary Insurance:[facility] [place] MEDICAIDPolicy Number: [id number] Date:2022-02-22 [facility] COUNTYJESE GODINEZDOB: [id number] [place] [address] [facility] 11/07/2023 [facility] COUNTYJESE TALCODOB: [place], [place] [address]Hzd: (HP) Primary Insurance:[facility] MEDICA[facility] OPolicy Number: [id number] Date:2023-10-16 KARENJESE WOODDOB: [id number] [place], [place] [address]Tqj: (HP) [facility] 11/07/2023 [facility] COUNTYJESE TALCODOB: [place], [place] [address]Bkg: (HP) Primary Insurance:[facility] OPolicy Number: [id number] Date:2023-10-16 KARENJESE TALCODOB: [id number] [place], [place] [address]Ptf: () [facility]
--- NOTE | 2024-11-05 13:07 | XR_ITS ---
[facility] [place] [id number] Patient Name: SANDY GODINEZ MRN: [id number] date: 1995 Sex: F Assigned Patient Location: [facility] Current Patient Location: [facility] Accession/Order Number: [id number] Exam Date: 11/05/2024 14:59 Report Date: 11/05/2024 15:02 At the request of: DUARTE VALDERRAMA Procedure: XR scoliosis survey Plain films scoliosis survey A frontal imaging with outside bending performed. There is a minimal lateral curvature of the thoracic spine with concavity to the left. This is less than 5 degrees. There is no hypermobility with sidebending. No acute chest or abdominal findings. Visualized pelvis symmetric. No vertebral abnormality identified. XR/XR scoliosis survey IMPRESSION: Mild lateral curvature of the thoracic spine with concavity to the left. No hypermobility. Impression dictated by: Vinicio Loyd M.D. 11/05/2024 3:02 PM Dictation Location: [employer] Electronically authenticated by: [id number] Date: 11/05/2024 15:02
== END 2024-11-05 12:59 | disposition home or self-care (01) ==
LOC: RAD 13:00
PROVIDERS: PCP Nurse Practitioner Family; Visit Provider Nurse Practitioner Family
DX: M54.9 Dorsalgia, unspecified (principal)
CPT/HCPCS: 72082

== ENCOUNTER 2024-11-15 19:29 | Emergency (ER) | payer OTHER, SELFPAY ==
[2024-11-15 19:35] VITALS: BP 169/82; PULSE 84; TEMP 36.9; O2SAT 98; BMI 31.9
--- OUTSIDE RECORDS SUMMARY | 2024-11-15 19:35 | XMS_ITS | CCD ---
Author Organization [facility] Care Team Providers Care Loom Control Chain Builder Name Role Phone Rebecca Lange Primary Care Provider [phone] VIBHA JOHNSON Attending Unavailable VIBHA JOHNSON Referring [...] DR LYLA Sanchez Admitting Unavailable DAMIAN, DR LLYA Sanchez Attending Unavailable REQUEST, NONE LISTED Primary [...] Referring Unavailable DO Janie Theodore Attending Provider [phone] Raudel Osborne MD Primary Care Provider [phone] MD Igor Becerra Attending Provider Edward Campuzano DO Unavailable Janie Theodore Admitting Unavailable Janie Theodore Attending Unavailable Igor Becerra Admitting Unavailable Igor Becerra Attending Unavailable Royer Simmons Admitting Unavailab Royer Watts Attending [facility]ab [facility] Unavailable Raudel Osborne Primary Care Physician LEYDI JEFFERS Attending Unavailable Unavailable Primary Care Provider UnavailRaudel Ann MD Primary Care Provider [phone] JUSTEN, EDWARD Attending Unavailable CHRISTA, BETSY Attending [...] [facility] Drug Allergy [address] [facility] Repository (20 sources) Wound Dressing Adhesive [...] needed for nausea or vomiting. Active PNV no.230-OC-fu4-dns-cid-xghy 400 mcg-35 mg- 25 mg-5 mg tablet,chewable (3 sources) Start: 11-07-2023 PNV no.874-OE-nb3-qnl-iic-ymdu 400 mcg-35 mg- 25 mg-5 mg tablet,chewable Indications: 24 weeks gestation of , Single umbilical artery Take 2 gummies daily during the 60 tablet 6 11/07/2023 Active Vka706-Racevyd Fumarate-Fa () 28-800 mg-mcg Tablet (2 sources) Start: 06-10-2017 take 1 tablet by mouth once daily Vds196-Wpfgepc Fumarate-Fa () 28-800 mg-mcg Tablet Active 1 [...] 02-15-2022 Episodic Other aftercare (1 source) Other skilled nursing (current) 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; 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: [OTH [facility] CURRENT DRUG THERAPY] Onset: 02-05-2022 Episodic Other [...] High,A-Abnormal,AA-Critical Abnormal Performed at: 01 =G [facility] [address] [place] [address] Katherine Thomason MD, IGP, RFX APTIMA HPV ASCU Note . [facility] Comment on above: TESTS RESULT FLAG UN ITS REF RANGE LAB DIAGNOSIS: 02 NEGATIVE FOR INTRAEPITHELIAL LESION OR MALIGNANCY. Specimen adequacy: 02 Satisfactory for evaluation. Endocervical and/or squamous metaplastic cells (endocervical component) are present. Performed by: 02 Monalisa Murillo, Certified Professional Coder ([facility]) . 02 Note: Note 02 The Pap [...] Low,>-Panic High,A-Abnormal,AA-Critical Abnormal Performed at: [address] [facility] [place] [address] Katherine Thomason MD, Performed at: =G - [facility] [id number] Pure Culture Operator: Katherine Thomason MD, Phone: [phone] Performed at: - [facility] [id number] Pure Culture Operator: Katherine Thomason MD, Phone: [phone] [facility] HCG ( test) Ql (U)o n 10-19-2024 Interpretation and review of laboratory results Normal [facility] Preg Test, Ur Negative Negative [facility] Urinalysis macro (dipstick) panel (U)on 10-19-2024 Bilirubin, UA Negative Negative - 4(70) +++ mg/dL [facility] Blood, UA Positive Negative - 50 Anselmo/mcL [facility] Comment on above: small Clarity, UA Clear [facility] Color, UA Yellow [facility] Glucose, UA Negative Negative - 2000(110) ++++ mg/dL [facility] Interpretation and review of laboratory results Abnormal [facility] Ketones, UA Negative Negative - 160(16) ++++ mg/dL [facility] Leukocytes, UA Trace Negative - 500+++ Monik/mcL [facility] Nitrite, UA Negative Negative - Positive [facility] pH, UA 7 5 - 9 [facility] Protein, UA Negative Negative - 2000(20) ++++ mg/dL [facility] Spec Grav, UA 1.025 1 - 1.03 [facility] Urobilinogen, UA 0.2 0.2 - 12 mg/dL [facility] RECURRENT VAGINITIS (HTRX)on 09-16-2024 ATOPOBIUM VAGINAE 0 [facility] ATOPOBIUM VAGINAE Not detected [facility] BVAB 2,3 (BACTERIAL VAGINOSIS ASSOCIATED BACTERIA 2, 3); MOBILUNCUS SPP 0 [facility] BVAB 2,3 (BACTERIAL VAGINOSIS ASSOCIATED BACTERIA 2, 3); MOBILUNCUS SPP Not detected [facility] SHANNON ALBICANS, PARAPSILOSIS, TROPICALIS 0 [facility] SHANNON ALBICANS, PARAPSILOSIS, TROPICALIS Not detected [facility] SHANNON GLABRATA 0 [facility] SHANNON GLABRATA Not detected [facility] SH[facility] KRUSEI 0 [facility] SHANNON KRUSEI Not detected [facility] CHLAMYDIA TRACHOMATIS 0 [facility] CHLAMYDIA TRACHOMATIS Not detected [facility] [...] [facility] [place] [address] Ultrasound Report Signed Patient: MICHELLE GODINEZ MR#: [id number] : 1995 Acct:[id number] Age/Sex: 29 / F ADM Date: 09/15/24 Loc: US Attending Dr: Edward Campuzano D.O. Ordering Physician: Edward Campuzano D.O. Date of Service: 09/15/24 Procedure(s): US pelvis transvaginal Accession Number(s): [id number] cc: DUARTE VALDERRAMA ; Edward Campuzano D.O. [place] [address] Patient Name: MICHELLE GODINEZ MRN: [id number] date: 1995 Sex: F Assigned Patient Location: US Current Patient Location: US Accession/Order Number: [id number] Exam Date: 09/15/2024 13:45 Report Date: 09/15/2024 [...] Vinicio Loyd M.D.09/15/2024 1:47 PM Dictation Location: [place] [address] Electronically authenticated by: [id number] Y Date: 09/15/2024 13:47 Dictated By: Vinicio Loyd D.O. Signed By: 09/15/24 1358 DD/ 1344 TD/TT: Linter Drier Operator: [facility] Radiology, Radiologist, MD - 09/15/2024 [place] [address] Ultrasound Report Signed Patient: MICHELLE GODINEZ MR#: [id number] : 1995 Acct:[id number] Age/Sex: 29 / F ADM Date: 09/15/24 Loc: US Attending Dr: Edward Campuzano D.O. Ordering Physician: Edward Campuzano D.O. Date of Service: 09/15/24 Procedure(s): US pelvis transvaginal Accession Number(s): [id number] cc: DUARTE VALDERRAMA ; Edward Campuzano D.O. The [place] [address] Patient Name: MICHELLE GODINEZ MRN: [facility]:[id number] date: 1995 Sex: F Assigned Patient Location: US Current Patient Location: US Accession/Order Number: [id number] Exam Date: 09/15/2024 13:45 Report Date: 09/15/2024 [...] Vinicio Loyd M.D.09/15/2024 1:47 PM Dictation [facility] Electronically authenticated by: [id number] Y Date: 09/15/2024 13:47 Dictated By: Vinicio Loyd D.O. Signed By: 09/15/24 1359 DD/ 1347 TD/TT: Linter Drier Operator: [facility] Radiology Study observation (narrative) [facility] US PELVIS TRANSVAGINALOrdere d By: Radiologist Radiology on 09-15-2024 [facility] Work Phone: Urinalysis macro (dipstick) panel (U)on 09-15-2024 Bilirubin, UA Negative Negative - 4(70) +++ mg/dL [facility] Blood, UA Positive Negative - 50 Anselmo/mcL [facility] Comment on above: trace-lysed Clarity, UA Clear [facility] Color, UA Yellow [facility] Glucose, UA Negative Negative - 1999(110) ++++ mg/dL [facility] Interpretation and review of laboratory results Abnormal [facility] Ketones, UA Negative Negative - 160(16) ++++ mg/dL [facility] Leukocytes, UA Positive Negative - 500+++ Monik/mcL [facility] Comment on above: small Nitrite, UA Negative Negative - Positive [facility] pH, UA 7.5 5 - 9 [facility] Protein, UA Trace Negative - 2000(20) ++++ mg/dL [facility] Spec Grav, UA 1.02 1 - 1.03 [facility] Urobilinogen, UA 0.2 0.2 - 12 mg/dL [facility] URINARY TRACT INFECTION (HTR X)on 05-30-2024 ACINETOBACTER BAUMANII 0 NO [facility] ACINETOBACTER BAUMANII Not detected [facility] SHANNON ALBICANS, PARAPSILOSIS, TROPICALIS 0 [facility] SHANNON ALBICANS, PARAPSILOSIS, TROPICALIS Not detected [facility] SHANNON GLABRATA 0 [facility] SHANNON GLABRATA Not detected [facility] SHANNON KRUSEI 0 [facility] SHANONN KRUSEI Not detected [facility] CITROBACTER FREUNDII 0 [facility] CITROBACTER FREUNDII Not detected [facility] ENTEROBACTER AEROGENES, CLOACAE 0 [facility] ENTEROBACTER AEROGENES, CLOACAE Not detected [facility] ENTEROCOCCUS FAECALIS, FAECIUM 0 [facility] ENTEROCOCCUS FAECALIS, FAECIUM Not detected [facility] ESCHERICHIA COLI 0 [facility] ESCHERICHIA COLI Not detected [facility] Interpretation and review of laboratory results Abnormal [...] EPIDERMIDIS, HAEMOLYTICUS, LUGDUNENSIS, SAPROPHYTICUS (URINA 0 [facility] STAPHYLOCOCCUS EPIDERMIDIS, HAEMOLYTICUS, LUGDUNENSIS, SAPROPHYTICUS (URINA Not detected [facility] STAPHYLOCOCCUS EPIDERMIDIS, HAEMOLYTICUS, LUGDUNENSIS, SAPROPHYTICUS (URINA 29.998 Abnormal [facility] STAPHYLOCOCCUS EPIDERMIDIS, HAEMOLYTICUS, LUGDUNENSIS, SAPROPHYTICUS (URINA Detected Abnormal [facility] STREPTOCOCCUS AGALACTIAE (GROUP B STREP) 0 [facility] STREPTOCOCCUS AGALACTIAE (GROUP B STREP) Not detected [facility] STREPTOCOCCUS PYOGENES (GROUP A STREP) 0 [facility] STREPTOCOCCUS PYOGENES (GROUP A STREP) Not detected [facility] HCG ( test) Ql (U)o n 05-28-2024 Interpretation and review of laboratory results Normal [facility] Preg Test, Ur Negative Negative [facility] Urinalysis macro (dipstick) panel (U)on 05-28-2024 Bilirubin, UA Negative Negative - 4(70) +++ mg/dL [facility] Blood, UA Positive Negative - 50 Anselmo/mcL [facility] Comment on above: trace Clarity, UA Clear [facility] Color, UA Yellow [facility] Glucose, UA Negative Negative - 2000(110) ++++ mg/dL [facility] Interpretation and review of laboratory results Abnormal [facility] Ketones, UA Negative Negative - 160(16) ++++ mg/dL [facility] Leukocytes, UA Trace Negative - 500+++ Monik/mcL [facility] Nitrite, UA Negative Negative - Positive [facility] pH, UA 6.5 5 - 9 [facility] Protein, UA Negative Negative - 2000(20) ++++ mg/dL [facility] Spec Grav, UA 1.025 1 - 1.03 [facility] Urobilinogen, UA 0.2 0.2 - 12 mg/dL [facility] Urology Office/Clinic Noteon 05-07-2024 Urology Office/Clinic Note Urology Office/Clinic Note Chief Complaint recurrent utis [facility] 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 Otherwise f/u PRN. Ordered: 92876 Measure Post Void residual urine and/or bladder capacity by US- non-imaging E&M of New Patient Moderate 45-59 Min 45205 Urnls Dip Stick Auto w/o Microscopy POC 01613 Follow-up With When Contact Information ZEYAD LEO, LEYDI E, URL Only if needed [address] [place] [address] [employer] (1) Additional Instructions: Patient Education Antibiotic Medicine, [...] Protein Urine Dipstick: Trace (05/07/24 14:28:00) Specific [place] Urine Dipstick: >=1.030 (05/07/24 14:28:00) Urine Appearance [...] UA Negative Negative - 4(70) +++ mg/dL [facility] Blood, UA Positive Negative - 50 Anselmo/mcL [facility] Clarity, UA Clear [facility] Color, UA Yellow [facility] Glucose, UA Negative Negative - 1999(110) ++++ mg/dL [facility] Interpretation and review of laboratory results Abnormal [facility] Ketones, UA Negative Negative - 160(16) ++++ mg/dL [facility] Leukocytes, UA Trace Negative - 500+++ Monik/mcL [facility] Nitrite, UA Negative Negative - Positive [facility] pH, UA 5.5 5 - 9 [facility] Protein, UA Negative Negative - 1999(20) ++++ mg/dL [facility] Spec Grav, UA 1.025 1 - 1.03 [facility] Urobilinogen, UA 1.0 0.2 - 12 mg/dL [facility] COLE Antinuclear Antibodieson 04-16-2024 Antinuclear Abs, IFA Positive Critically abnormal . [facility] Comment on above: Result Comment: Nega tive <1:80 Borderline 1:80 Positive >1:80 Performed By: #### C K #### [address] #### COLE #### [facility] , Note 1 Comment Normal . [facility] Comment on above: Result Comment: Kaleigh vasquez Potential Disease Association Homogeneous Systemic Lupus Erythematosus, Drug Induced Systemic Lupus Erythematosus, Chronic Autoimmune hepatitis, Juvenile Idiopathic Arthritis Speckled Sjogren Syndrome, Systemic Lupus Erythematosus, Subacute Cutaneous Lupus, Lupus, Congenital Heart Block, Mixed Connective Tissue Disease, Scleroderma-diffuse, Scleroderma-Autoimmune Myositis Overlap Syndrome, Systemic Lupus Wpicwkmxeiqbn-Vearluyunvd-Vtcvazllew Myositis Overlap Syndrome, Systemic Autoimmune Rheumatic Disease, [...] Cytopenias, Linear Scleroderma, Antiphospholipid Syndrome Performed at: [facility] [address] [id number] Pure Culture Operator: Chiki Santoyo PhD, Phone: [phone] PERFORMED BY: [place] [address] PATHOLOGIST AIR CONDITIONING INSTALLER SUPERVISOR BRAD LINDSEY M.D. Performed By: #### C K #### [address] #### COLE #### [facility] , Nuclear Dot Pattern 1:1280 High . [facility] Comment on above: Result Comment: ICAP nomenclature: AC-6,7 Performed By: #### C K #### [address] #### COLE #### [facility] , Speckled Pattern 1:320 High . [facility] Comment on above: Result Comment: Dens e Fine Speckled pattern is noted. This pattern suggests the presence of DFS70 antibody which has a low prevalence in systemic autoimmune rheumatic diseases. ICAP nomenclature: AC-2,4,5,29 Performed By: #### C K #### [facility] [address] [place] [address] #### COLE #### [facility] , Creatine kinase [Enzymatic a ctivity/volume] in Serum or PlasmaOrdered By: Igor Becerra on 04-16-2024 CK [Catalytic activity/Vol] 47 U/L Normal 30-223 [facility] Comment on above: Result Comment: PERF ORMED BY: [place] [address] PATHOLOGIST AIR CONDITIONING INSTALLER SUPERVISOR BRAD LINDSEY M.D. Performed By: #### C K #### [facility] [address] [place] [address] #### COLE #### [facility] , HCG QUALITATIVE*on 4 [facility] , QUAL Negative NEGATIVE [facility] [place] 03-10-2024 L Specimen: [id number] Received: 03/10/24 Status: ADRIANNE Cyr Num: [id number] Spec Type: Surgical Subm Dr: Janie Theodore DO Tissues: A Gallbladder (GALLBLADDER) Procedures: HE, Gross/Micro L3 Age/ Patient Sex Location Account Attending Physician Michelle Godinez 28/F [facility] [id number] Janie Theodore DO SPEC NUM: [id number] RECD: 03/10/24 STATUS: ADRIANNE CYR NUM: [id number] DOE: 03/10/[address]: Janie Theodore DO ENTERED: 03/10/[address] [facility] DR: Peng Noyola SPEC TYPE: Surgical DEPT: FARHANA LOPEZ ENTERED BY: [id number] RECV BY: [id number] ORDERED: HE, Gross/Micro L3 ORDERED: HE, Gross/Micro [...] cystic duct is compacted with a calculus. Electrical And Instrumentation Manager sections are submitted in cassette A1. DM Specimen: [id number] Received: 03/10/24 Status: ADRIANNE Cyr Num: [id number] Spec Type: Surgical Subm Dr: Janie Theodore DO Tissues: A Gallbladder (GALLBLADDER) Procedures: Corky WILLIS/Jaquelin L3 Patient: Michelle Godinez [id number] (Continued) Specimen: [id number] Received: 03/10/24 (Continued) Signed (signature on file) Tali Martinez MD 03/16/241921 Specimen: [id number] Received: 03/10/24 Status: ADRIANNE Choudharyrosalio Num: [id number] Spec Type: Surgical Subm Dr: Janie Theodore DO Tissues: A Gallbladder (GALLBLADDER) Procedures: Corky WILLIS/Jaquelin L3 Patient: Michelle Godinez [id number] (Continued) Specimen: [id number] Received: 03/10/24 (Continued) Microscopic Description Microscopic examinations are performed supporting the above interpretation CPT Codes 30629 Specimen: [id number] Received: 03/10/24 Status: ADRIANNE Cyr Num: [id number] Spec Type: Surgical Subm Dr: Janie Theodore DO Tissues: A Gallbladder (GALLBLADDER) Procedures: Corky WILLIS/Jaquelin L3 Patient: Michelle Godinez [id number] (Continued) Signed (signature on file) Tali Martinez MD 03/16/241921 Normal [facility] ALL CBC WITH AUTO DIFFon BASOPHILS ABSOLUTE AUTO 0.1 [facility] Basophils/100 WBC (Bld) 0.5 % 0.2 - 2.0 % [facility] Eosinophils/100 WBC (Bld) 1.8 % 0.9 - 7.0 % [facility] Erythrocyte distribution width (RBC) [Ratio] 15.2 % High 11.0 - 15.0 % [facility] Hematocrit (Bld) [Volume fraction] 28.8 % Low 36.0 - 48.0 % [facility] Hemoglobin (Bld) [Mass/Vol] 9.1 g/dL Low 12.0 - 16.0 g/dL [facility] IMMATURE GRANULOCYTES ABS AUTO 0.14 High [facility] Immature granulocytes/100 WBC (Bld) 1.1 % High 0.0 - 0.5 % [facility] Interpretation and review of laboratory results Abnormal [facility] LYMPHOCYTES ABSOLUTE AUTO 2.7 [facility] Lymphocytes/100 WBC (Bld) 20.5 % 20.5 - 60.0 % [facility] MCH (RBC) [Entitic mass] 27.2 pg 26.7 - 34.0 pg [facility] MCHC (RBC) [Mass/Vol] 31.6 g/dL 29.9 - 35.2 g/dL [facility] MCV (RBC) [Entitic vol] 86.0 fL 81.0 - 99.0 fL [facility] MONOCYTES ABSOLUTE AUTO 1.1 High N [facility] Monocytes/100 WBC (Bld) 8.8 % 1.7 - 12.0 % [facility] NEUTROPHILS ABSOLUTE AUTO 8.8 High [facility] Neutrophils/100 WBC (Bld) 67.3 % 43.0 - 75.0 % [facility] Platelet mean volume (Bld) [Entitic vol] 9.6 fL 9.5 - 13.5 fL [facility] TBH EO # 0.2 [facility] TB PLT 324 [facility] RBC 3.35 Low [facility] WBC 13.0 High [facility] WITH PLATELET NO DI FFERENTIALon 02-06-2024 Erythrocyte distribution width (RBC) [Ratio] 15.2 % High 11.0 - 15.0 % [facility] Hematocrit (Bld) [Volume fraction] 31.2 % Low 36.0 - 48.0 % [facility] Hemoglobin (Bld) [Mass/Vol] 9.8 g/dL Low 12.0 - 16.0 g/dL [facility] Interpretation and review of laboratory results Abnormal [facility] MCH (RBC) [Entitic mass] 27.3 pg 26.7 - 34.0 pg [facility] MCHC (RBC) [Mass/Vol] 31.4 g/dL 29.9 - 35.2 g/dL [facility] MCV (RBC) [Entitic vol] 86.9 fL 81.0 - 99.0 fL [facility] Platelet mean volume (Bld) [Entitic vol] 9.6 fL 9.5 - 13.5 fL [facility] PLT 342 [facility] TB RBC 3.59 Low [facility] TB WBC 10.7 [facility] ALL CBC WITH AUTO DIFFon BASOPHILS ABSOLUTE AUTO 0.1 N [facility] Basophils/100 WBC (Bld) 0.7 % 0.2 - 2.0 % [facility] Eosinophils/100 WBC (Bld) 2.6 % 0.9 - 7.0 % [facility] Erythrocyte distribution width (RBC) [Ratio] 13.4 % 11.0 - 15.0 % [facility] Hematocrit (Bld) [Volume fraction] 39.0 % 36.0 - 48.0 % [facility] Hemoglobin (Bld) [Mass/Vol] 12.8 g/dL 12.0 - 16.0 g/dL [facility] IMMATURE GRANULOCYTES ABS AUTO 0.01 [facility] Immature granulocytes/100 WBC (Bld) 0.1 % 0.0 - 0.5 % [facility] LYMPHOCYTES ABSOLUTE AUTO 2.2 [facility] Lymphocytes/100 WBC (Bld) 26.1 % 20.5 - 60.0 % [facility] MCH (RBC) [Entitic mass] 28.6 pg 26.7 - 34.0 pg [facility] MCHC (RBC) [Mass/Vol] 32.8 g/dL 29.9 - 35.2 g/dL [facility] MCV (RBC) [Entitic vol] 87.2 fL 81.0 - 99.0 fL [facility] MONOCYTES ABSOLUTE AUTO 0.5 N [facility] Monocytes/100 WBC (Bld) 5.7 % 1.7 - 12.0 % [facility] NEUTROPHILS ABSOLUTE AUTO 5.5 [facility] Neutrophils/100 WBC (Bld) 64.8 % 43.0 - 75.0 % [facility] Platelet mean volume (Bld) [Entitic vol] 10.1 fL 9.5 - 13.5 fL [facility] TBH EO # 0.2 [facility] PLT 340 [facility] RBC 4.47 [facility] WBC 8.4 [facility] HCG ( test) Ql (U)o n 02-02-2024 Interpretation and review of laboratory results Abnormal [facility] Preg Test, Ur Positive [facility] Urinalysis macro (dipstick) panel (U)on 07-19-2023 Bilirubin, UA Negative Negative - 4(70) +++ mg/dL [facility] Blood, UA Positive Negative - 50 Anselmo/mcL [facility] Comment on above: moderate Clarity, UA Clear [facility] Color, UA [place] [facility] Glucose, UA Negative Negative - 2000(110) ++++ mg/dL [facility] Interpretation and review of laboratory results Abnormal [facility] Ketones, UA Positive Negative - 160(16) ++++ mg/dL [facility] Comment on above: trace Leukocytes, UA Positive Negative - 500+++ Monik/mcL [facility] Comment on above: small Nitrite, UA Negative Negative - Positive [facility] pH, UA 6.0 5 - 9 [facility] Protein, UA Positive Negative - 2000(20) ++++ mg/dL [facility] Comment on above: 30 Spec Grav, UA 1.030 1 - 1.03 [facility] Urobilinogen, UA 1.0 0.2 - 12 mg/dL [facility] CBC AUTO DIFFon 07-30-2022 BASO # 0.1 103/ul Normal 0.0-0.1 [facility] Comment on above: Performed By: #### U RCX #### [facility] [address] [place] [address] Dr. Caitlin Martinez Basophils/100 WBC (Bld) 1.1 % Normal 0.2-2.0 [facility] Comment on above: Performed By: #### U RCX #### [facility] [address] [place] [address] Dr. Caitlin Martinez EO # 0.3 103/ul Normal 0.0-0.7 [facility] Comment on above: Performed By: #### U RCX #### [facility] [address] [place] [address] Dr. Caitlin Martinez Eosinophils/100 WBC (Bld) 4.7 % Normal 0.9-7.0 [facility] Comment on above: Performed By: #### U RCX #### [facility] [address] [place] [address] Dr. Caitlin Martinez Erythrocyte distribution width (RBC) [Ratio] 14.7 % Normal 11.0-15.0 [facility] Comment on above: Performed By: #### U RCX #### [facility] [address] [place] [address] Dr. Caitlin Martinez Hematocrit (Bld) [Volume fraction] 39.3 % Normal 36.0-48.0 [facility] Comment on above: Performed By: #### U RCX #### [facility] [address] [place] [address] Dr. Caitlin Martinez Hemoglobin (Bld) [Mass/Vol] 12.7 g/dL Normal 12.0-16.[address] [facility] Comment on above: Performed By: #### U RCX #### [facility] [address] [place] [address] Dr. Caitlin Martinez IG # 0.02 10e3/ul Normal 0.00-0.03 [facility] Comment on above: Performed By: #### U RCX #### [facility] [address] [place] [address] Dr. Caitlin Martinez IG % 0.3 % Normal 0.0-0.5 [facility] Comment on above: Performed By: #### U RCX #### [facility] [address] [place] [address] Dr. Caitlin Martinez LYMPH # 2.5 103/ul Normal 1.2-3.[address] [facility] Comment on above: Performed By: #### U RCX #### [facility] [address] [place] [address] Dr. Caitlin Martinez Lymphocytes/100 WBC (Bld) 34.5 % Normal 20.5-60.[address] [facility] Comment on above: Performed By: #### U RCX #### [facility] [address] [place] [address] Dr. Caitlin Martinez MANUAL DIFF REQ NO Normal [facility] Comment on above: Performed By: #### U RCX #### [facility] [address] [place] [address] Dr. Caitlin Martinez MCH (RBC) [Entitic mass] 27.3 pg Normal 26.7-34.0 [facility] Comment on above: Performed By: #### U RCX #### [facility] [address] [address] [address] Caitlin Martinez MCHC (RBC) [Mass/Vol] 32.3 g/dL Normal 29.9-35.2 [facility] Comment on above: Performed By: #### U RCX #### [facility] [address] [address] [address] Caitlin Martinez MCV (RBC) [Entitic vol] 84.5 fL Normal 81.0-99.0 [facility] Comment on above: Performed By: #### U RCX #### [facility] [address] [place] [address] Dr. Caitlin Martinez MONO # 0.5 103/ul Normal 0.3-0.8 [facility] Comment on above: Performed By: #### U RCX #### [facility] [address] [place] [address] Dr. Caitlin Martinez Monocytes/100 WBC (Bld) 7.3 % Normal 1.7-12.0 [facility] Comment on above: Performed By: #### U RCX #### [facility] [address] [place] [address] Dr. Caitlin Martinez NEUT # 3.8 103/ul Normal 1.4-6.5 [facility] Comment on above: Performed By: #### U RCX #### [facility] [address] [place] [address] Dr. Caitlin Martinez Neutrophils/100 WBC (Bld) 52.1 % Normal 43.0-75.0 [facility] Comment on above: Performed By: #### U RCX #### [facility] [address] [place] [address] Dr. Caitlin Martinez Platelet mean volume (Bld) [Entitic vol] 9.0 fL Critically low 9.5-13.5 [facility] Comment on above: Performed By: #### U RCX #### [facility] [address] [address] [address] Caitlin Martinez PLT 368 103/ul Normal 150-[address] [facility] Comment on above: Performed By: #### U RCX #### [facility] [address] [place] [address] Dr. Caitlin Martinez RBC 4.65 106/ul Normal 4.20-5.40 [facility] Comment on above: Performed By: #### U RCX #### [facility] [address] [address] [address] Caitlin Martinez WBC 7.2 103/ul Normal 4.0-11.0 [facility] Comment on above: Performed By: #### U RCX #### [facility] [address] [place] [address] Dr. Caitlin Martinez IRONon 07-30-2022 Iron [Mass/Vol] 43.0 ug/dL Critically low 50.0-170.0 [facility] Comment on above: Performed By: #### U RCX #### [facility] [address] [place] [address] Dr. Caitlin Martinez PAP ACOG PANEL 2: 21 to 29on 07-30-2022 . . Normal [facility] Comment on above: Performed By: #### U RCX #### [facility] [address] [place] [address] Dr. Caitlin Martinez Age Gdln ACOG Testing 21-29 Normal [facility] Comment on above: Performed By: #### U RCX #### [facility] [address] [place] [address] Dr. Caitlin Martinez DIAGNOSIS: Comment Normal [facility] Comment on above: Result Comment: NEGA TIVE FOR INTRAEPITHELIAL LESION OR MALIGNANCY. Performed By: #### U RCX #### [facility] [address] [place] [address] Dr. Caitlin Martinez Methodology: Comment Normal [facility] Comment on above: Result Comment: This liquid based ThinPrep(R) pap test was screened with the use of an image guided system. Performed By: #### U RCX #### [facility] [address] [place] [address] Dr. Caitlin Martinez Note: Comment Normal [facility] Comment on above: Result Comment: The Pap smear is a screening test designed to aid in the detection of premalignant and malignant conditions of the uterine cervix. It is not a diagnostic procedure and should not be used as the sole means of detecting cervical cancer. Both false-positive and false-negative reports do occur. . Performed By: #### U RCX #### [facility] [address] [address] [address] Caitlin Martinez Performed by: Comment Normal [facility] Comment on above: Result Comment: Bhavna Cormier, Agent Contract Clerk (ASCP) Performed By: #### U RCX #### [facility] [address] [place] [address] Dr. Caitlin Martinez Reflex Criteria: Comment Normal [facility] Comment on above: Result Comment: The HPV DNA reflex criteria were not met with this specimen result therefore, no HPV testing was performed. . Performed By: #### U RCX #### [facility] [address] [place] [address] Dr. Caitlin Martinez Specimen adequacy: Comment Normal [facility] Comment on above: Result Comment: Sati sfactory for evaluation. Endocervical and/or squamous metaplastic cells (endocervical component) are present. Performed By: #### U RCX #### [facility] [address] [place] [address] Dr. Caitlin Martinez INSULINon 04-19-2022 Insulin 9.1 uIU/mL Normal 2.6-24.9 [facility] Comment on above: Performed By: #### I HORACIO #### [facility] [address] [place] [address] Dr. Caitlin Martinez CBC AUTO DIFFon 04-18-2022 BASO # 0.1 103/ul Normal 0.0-0.1 [facility] Comment on above: Performed By: #### U RCX #### [facility] [address] [place] [address] Dr. Caitlin Martinez Basophils/100 WBC (Bld) 1.0 % Normal 0.2-2.0 [facility] Comment on above: Performed By: #### U RCX #### [facility] [address] [place] [address] Dr. Caitlin Martinez EO # 0.3 103/ul Normal 0.0-0.7 [facility] Comment on above: Performed By: #### U RCX #### [facility] [address] [place] [address] Dr. Caitlin Martinez Eosinophils/100 WBC (Bld) 4.1 % Normal 0.9-7.0 [facility] Comment on above: Performed By: #### U RCX #### [facility] [address] [place] [address] Dr. Caitlin Martinez Erythrocyte distribution width (RBC) [Ratio] 16.0 % Critically high 11.0-15.0 [facility] Comment on above: Performed By: #### U RCX #### [facility] [address] [place] [address] Dr. Caitlin Martinez Hematocrit (Bld) [Volume fraction] 35.7 % Critically low 36.0-48.0 [facility] Comment on above: Performed By: #### U RCX #### [facility] [address] [place] [address] Dr. Caitlin Martinez Hemoglobin (Bld) [Mass/Vol] 10.9 g/dL Critically low 12.0-16.0 [facility] Comment on above: Performed By: #### U RCX #### [facility] [address] [place] [address] Dr. Caitlin Martinez IG # 0.07 10e3/ul Critically high 0.00-0.03 [facility] Comment on above: Performed By: #### U RCX #### [facility] [address] [place] [address] Dr. Caitlin Martinez IG % 1.0 % Critically high 0.0-0.5 [facility] Comment on above: Performed By: #### U RCX #### [facility] [address] [place] [address] Dr. Caitlin Martinez LYMPH # 2.3 103/ul Normal 1.2-3.8 [facility] Comment on above: Performed By: #### U RCX #### [facility] [address] [place] [address] Dr. Caitlin Martinez Lymphocytes/100 WBC (Bld) 31.4 % Normal 20.5-60.0 [facility] Comment on above: Performed By: #### U RCX #### [facility] [address] [place] [address] Dr. Caitlin Martinez MANUAL DIFF REQ NO Normal [facility] Comment on above: Performed By: #### U RCX #### [facility] [address] [place] [address] Dr. Caitlin Martinez MCH (RBC) [Entitic mass] 24.8 pg Critically low 26.7-34.0 [facility] Comment on above: Performed By: #### U RCX #### [facility] [address] [place] [address] Dr. Caitlin Martinez MCHC (RBC) [Mass/Vol] 30.5 g/dL Normal 29.9-35.2 [facility] Comment on above: Performed By: #### U RCX #### [facility] [address] [place] [address] Dr. Caitlin Martinez MCV (RBC) [Entitic vol] 81.1 fL Normal 81.0-99.0 [facility] Comment on above: Performed By: #### U RCX #### [facility] [address] [place] [address] Dr. Caitlin Martinez MONO # 0.5 103/ul Normal 0.3-0.8 [facility] Comment on above: Performed By: #### U RCX #### [facility] [address] [place] [address] Dr. Caitlin Martinez Monocytes/100 WBC (Bld) 6.6 % Normal 1.7-12.0 [facility] Comment on above: Performed By: #### U RCX #### [facility] [address] [place] [address] Dr. Caitlin Martinez NEUT # 4.1 103/ul Normal 1.4-6.5 [facility] Comment on above: Performed By: #### U RCX #### [facility] [address] [place] [address] Dr. Caitlin Martinez Neutrophils/100 WBC (Bld) 55.9 % Normal 43.0-75.0 [facility] Comment on above: Performed By: #### U RCX #### [facility] [address] [place] [address] Dr. Caitlin Martinez Platelet mean volume (Bld) [Entitic vol] 9.4 fL Critically low 9.5-13.5 [facility] Comment on above: Performed By: #### U RCX #### [facility] [address] [place] [address] Dr. Caitlin Martinez PLT 369 103/ul Normal 150-450 [facility] Comment on above: Performed By: #### U RCX #### [facility] [address] [place] [address] Dr. Caitlin Martinez RBC 4.40 106/ul Normal 4.20-5.[address] [facility] Comment on above: Performed By: #### U RCX #### [facility] [address] [place] [address] Dr. Caitlin Martinez WBC 7.3 103/ul Normal 4.0-11.0 [facility] Comment on above: Performed By: #### U RCX #### [facility] [address] [place] [address] Dr. Caitlin Martinez FREE THYROXINE INDEX T7on FTI 2.20 Normal 1.30-4.[address] [facility] Comment on above: Performed By: #### I HORACIO #### [facility] [address] [place] [address] Dr. Caitlin Martinez T3U 29.0 % Critically low 30.0-39.0 [facility] Comment on above: Performed By: #### I HORACIO #### [facility] [address] [place] [address] Dr. Caitlin Martinez T4 [Mass/Vol] 7.60 ug/dL Normal 4.80-13.90 [facility] Comment on above: Performed By: #### I HORACIO #### [facility] [address] [address] [address] Caitlin Martinez GLYCOHEMOGLOBIN A1Con 2021 ADA RECOMMENDATION SEE BELOW Normal [facility] Comment on above: Result Comment: ADA RECOMMENDED LIMIT 4.0 - 6.0 ADA THERAPEUTIC TARGET < 7.0 ACTION SUGGESTED > 7.0 Performed By: #### U RCX #### [facility] [address] [address] [address] Caitlin Martinez Glucose [Mass/Vol] 97 mg/dL Normal [facility] Comment on above: Performed By: #### U RCX #### [facility] [address] [place] [address] Dr. Caitlin Martinez HbA1c (Bld) [Mass fraction] 5.0 % Normal 4.5-6.2 [facility] Comment on above: Performed By: #### U RCX #### [facility] [address] [place] [address] Dr. Caitlin Martinez IRONon 04-18-2022 Iron [Mass/Vol] 35.0 ug/dL Critically low 50.0-170.0 [facility] Comment on above: Performed By: #### I HORACIO #### [facility] [address] [place] [address] Dr. Caitlin Martinez LIPID PROFILEon 04-18-2022 CHOL-HDL RATIO NORM SEE BELOW Normal [facility] Comment on above: Result Comment: 3.3 - 4.4 LOW RISK 4.4 - 7.1 AVERAGE RISK 7.1 - 11.0 MODERATE RISK >11.0 HIGH RISK Performed By: #### I HORACIO #### [facility] [address] [place] [address] Dr. Caitlin Martinez Cholesterol [Mass/Vol] 221 mg/dL Critically high <=[address] [facility] Comment on above: Performed By: #### I HORACIO #### [facility] [address] [place] [address] Dr. Caitlin Martinez Cholesterol in HDL [Mass/Vol] 67 mg/dL Critically high 40-60 [facility] Comment on above: Performed By: #### I HORACIO #### [facility] [address] [address] [address] Caitlin Martinez Cholesterol in LDL [Mass/Vol] 142.4 mg/dL Normal [facility] Comment on above: Performed By: #### I HORACIO #### [facility] [address] [address] [address] Caitlin Martinez Cholesterol.total/Geeta sterol in HDL [Mass ratio] 3.3 {ratio} Normal [facility] Comment on above: Performed By: #### I HORACIO #### [facility] [address] [address] [address] Caitlin Martinez HDL NORMAL > or = 60 mg/dl - LOW CARDIOVASCULAR RISK <40 mg/dl - HIGH CARDIOVASCULAR RISK Normal [facility] Comment on above: Performed By: #### I HORACIO #### [facility] [address] [place] [address] Dr. Caitlin Martinez LDL CALC NORMAL SEE BELOW Normal [facility] Comment on above: Result Comment: <100 mg/dl OPTIMAL 100 - 129 mg/dl NEAR OR ABOVE OPTIMAL 130 - 159 mg/dl BORDERLINE HIGH 160 - 189 mg/dl HIGH >190 mg/dl VERY HIGH Performed By: #### I HORACIO #### [facility] [address] [place] [address] Dr. Caitlin Martinez Triglyceride [Mass/Vol] 58 mg/dL Normal <=150 T [facility] Comment on above: Performed By: #### I HORACIO #### [facility] [address] [place] [address] Dr. Caitlin Martinez VLDL CALC 11.6 mg/dL Normal [facility] Comment on above: Performed By: #### I HORACIO #### [facility] [address] [place] [address] Dr. Caitlin Martinez PROF 14(COMP METB)on 022 Albumin [Mass/Vol] 3.8 g/dL Normal 3.4-5.0 [facility] Comment on above: Performed By: #### I HORACIO #### [facility] [address] [place] [address] Dr. Caitlin Martinez Albumin/Globulin [Mass ratio] 1.1 {ratio} Normal [facility] Comment on above: Performed By: #### I HORACIO #### [facility] [address] [place] [address] Dr. Caitlin Martinez ALP [Catalytic activity/Vol] 132 U/L Critically high 46-116 [facility] Comment on above: Performed By: #### I HORACIO #### [facility] [address] [place] [address] Dr. Caitlin Martinez ALT [Catalytic activity/Vol] 55 U/L Normal 14-59 [facility] Comment on above: Performed By: #### I HORACIO #### [facility] [address] [place] [address] Dr. Caitlin Martinez Anion gap [Moles/Vol] 12.6 mmol/L Normal [facility] Comment on above: Performed By: #### I HORACIO #### [facility] [address] [place] [address] Dr. Caitlin Martinez AST [Catalytic activity/Vol] 27 U/L Normal 15-37 [facility] Comment on above: Performed By: #### I HORACIO #### [facility] [address] [place] [address] Dr. Caitlin Martinez Bilirubin [Mass/Vol] 0.6 mg/dL Normal 0.2-1.0 [facility] Comment on above: Performed By: #### I HORACIO #### [facility] [address] [place] [address] Dr. Caitlin Martinez Calcium [Mass/Vol] 9.1 mg/dL Normal 8.5-10.1 [facility] Comment on above: Performed By: #### I HORACIO #### [facility] [address] [place] [address] Dr. Caitlin Martinez Chloride [Moles/Vol] 106 mmol/L Normal 98-107 [facility] Comment on above: Performed By: #### I HORACIO #### [facility] [address] [place] [address] Dr. Caitlin Martinez CO2 [Moles/Vol] 26.5 mmol/L Normal 21.0-32.0 [facility] Comment on above: Performed By: #### I HORACIO #### [facility] [address] [place] [address] Dr. Caitlin Martinez Creatinine [Mass/Vol] 0.63 mg/dL Normal 0.55-1.02 [facility] Comment on above: Performed By: #### I HORACIO #### [facility] [address] [place] [address] Dr. Caitlin Martinez EGFR-AF SWAZI >60 Normal >=60 [facility] Comment on above: Performed By: #### I HORACIO #### [facility] [address] [place] [address] Dr. Caitlin Martinez EGFR-NON AF SWAZI >60 Normal >=60 [facility] Comment on above: Performed By: #### I HORACIO #### [facility] [address] [place] [address] Dr. Caitlin Martinez Globulin (S) [Mass/Vol] 3.6 g/dL Normal [facility] Comment on above: Performed By: #### I HORACIO #### [facility] [address] [place] [address] Dr. Caitlin Martinez Glucose [Mass/Vol] 98 mg/dL Normal 74-106 [facility] Comment on above: Performed By: #### I HORACIO #### [facility] [address] [place] [address] Dr. Caitlin Martinez Potassium [Moles/Vol] 4.1 mmol/L Normal 3.5-5.[address] [facility] Comment on above: Performed By: #### I HORACIO #### [facility] [address] [place] [address] Dr. Caitlin Martinez Protein [Mass/Vol] 7.4 g/dL Normal 6.4-8.2 [facility] Comment on above: Performed By: #### I HORACIO #### [facility] [address] [place] [address] Dr. Caitlin Martinez Sodium [Moles/Vol] 141 mmol/L Normal 136-145 [facility] Comment on above: Performed By: #### I HORACIO #### [facility] [address] [address] [address] Caitlin Martinez Urea nitrogen [Mass/Vol] 9.0 mg/dL Normal 7.0-18.0 [facility] Comment on above: Performed By: #### I HORACIO #### [facility] [address] [address] [address] Caitlin Martinez Urea nitrogen/Creatinine [Mass ratio] 14.3 mg/mg Normal [facility] Comment on above: Performed By: #### I HORACIO #### [facility] [address] [address] [address] Caitlin Martinez TSHon 04-18-2022 TSH 1.349 uIU/mL Normal 0.358-3.740 [facility] Comment on above: Performed By: #### I HORACIO #### [facility] [address] [place] [address] Dr. Caitlin Martinez ANTIBODY ID PANELon 02-15-20 ANTIBODY ID PANEL Antibody ID Anti-D Blood Bank Notes most likely due to Rhogam given on 12/01/21 Normal [facility] Comment on above: Performed By: #### D IRCMB, ABID #### [facility] [address] [place] [address] Dr. Caitlin Martinez CTA CHEST WO W [...] PILAR WHEELER Date: 2022-02-10 22:55 Normal [facility] CBC AUTO DIFFon 02-10-2022 BASO # 0.1 103/ul Normal 0.0-0.1 [facility] Comment on above: Performed By: #### C BC #### [facility] [address] [address] [address] Caitlin Martinez Basophils/100 WBC (Bld) 0.4 % Normal 0.2-2.0 [facility] Comment on above: Performed By: #### C BC #### [facility] [address] [address] [address] Caitlin Martinez EO # 0.5 103/ul Normal 0.0-0.7 [facility] Comment on above: Performed By: #### C BC #### [facility] [address] [place] [address] Dr. Caitlin Martinez Eosinophils/100 WBC (Bld) 4.2 % Normal 0.9-7.0 [facility] Comment on above: Performed By: #### C BC #### [facility] [address] [address] [address] Caitlin Martinez Erythrocyte distribution width (RBC) [Ratio] 14.7 % Normal 11.0-15.0 [facility] Comment on above: Performed By: #### C BC #### [facility] [address] [place] [address] Dr. Caitlin Martinez Hematocrit (Bld) [Volume fraction] 31.1 % Critically low 36.0-48.0 [facility] Comment on above: Performed By: #### C BC #### [facility] [address] [address] [address] Caitlin Martinez Hemoglobin (Bld) [Mass/Vol] 9.6 g/dL Critically low 12.0-16.0 [facility] Comment on above: Performed By: #### C BC #### [facility] [address] [place] [address] Dr. Caitlin Martinez IG # 0.28 10e3/ul Critically high 0.00-0.03 [facility] Comment on above: Performed By: #### C BC #### [facility] [address] [place] [address] Dr. Caitlin Martinez IG % 2.3 % Critically high 0.0-0.5 [facility] Comment on above: Performed By: #### C BC #### [facility] [address] [place] [address] Dr. Caitlin Martinez LYMPH # 3.3 103/ul Normal 1.2-3.8 [facility] Comment on above: Performed By: #### C BC #### [facility] [address] [place] [address] Dr. Caitlin Martinez Lymphocytes/100 WBC (Bld) 26.9 % Normal 20.5-60.0 [facility] Comment on above: Performed By: #### C BC #### [facility] [address] [place] [address] Dr. Caitlin Martinez MANUAL DIFF REQ NO Normal [facility] Comment on above: Performed By: #### C BC #### [facility] [address] [place] [address] Dr. Caitlin Martinez MCH (RBC) [Entitic mass] 26.2 pg Critically low 26.7-34.0 [facility] Comment on above: Performed By: #### C BC #### [facility] [address] [place] [address] Dr. Caitlin Martinez MCHC (RBC) [Mass/Vol] 30.9 g/dL Normal 29.9-35.2 [facility] Comment on above: Performed By: #### C BC #### [facility] [address] [place] [address] Dr. Caitlin Martinez MCV (RBC) [Entitic vol] 84.7 fL Normal 81.0-99.0 [facility] Comment on above: Performed By: #### C BC #### [facility] [address] [place] [address] Dr. Caitlin Martinez MONO # 1.1 103/ul Critically high 0.3-0.8 [facility] Comment on above: Performed By: #### C BC #### [facility] [address] [address] [address] Caitlin Martinez Monocytes/100 WBC (Bld) 8.7 % Normal 1.7-12.0 [facility] Comment on above: Performed By: #### C BC #### [facility] [address] [address] [address] Caitlin Martinez NEUT # 7.0 103/ul Critically high 1.4-6.5 [facility] Comment on above: Performed By: #### C BC #### [facility] [address] [address] [address] Caitlin Martinez Neutrophils/100 WBC (Bld) 57.5 % Normal 43.0-75.0 [facility] Comment on above: Performed By: #### C BC #### [facility] [address] [place] [address] Dr. Caitlin Martinez Platelet mean volume (Bld) [Entitic vol] 9.1 fL Critically low 9.5-13.5 [facility] Comment on above: Performed By: #### C BC #### [facility] [address] [place] [address] Dr. Caitlin Martinez PLT 437 103/ul Normal 150-450 [facility] Comment on above: Performed By: #### C BC #### [facility] [address] [place] [address] Dr. Caitlin Martinez RBC 3.67 106/ul Critically low 4.20-5.40 [facility] Comment on above: Performed By: #### C BC #### [facility] [address] [place] [address] Dr. Caitlin Martinez WBC 12.3 103/ul Critically high 4.0-11.0 [facility] Comment on above: Performed By: #### C BC #### [facility] [address] [place] [address] Dr. Caitlin Martinez Covid-19 PCR (CVDTB)on 01-16 SARS-CoV-2 (COVID-19) RNA JONATAN+probe Ql (Unsp spec) Not detected Normal NOT DETECTED [facility] Comment on above: Result Comment: When [...] for this test is supported by the [place] [employer] of Health and Human Service's declaration [...] By: #### C VDTBH #### [facility] [address] [place] [address] Dr. Caitlin Martinez PROF 14(COMP METB)on 022 Albumin [Mass/Vol] 2.1 g/dL Critically low 3.4-5.[address] [facility] Comment on above: Performed By: #### U RCX #### [facility] [address] [place] [address] Dr. Caitlin Martinez Albumin/Globulin [Mass ratio] 0.5 {ratio} Normal [facility] Comment on above: Performed By: #### U RCX #### [facility] [address] [place] [address] Dr. Caitlin Martinez ALP [Catalytic activity/Vol] 202 U/L Critically high 46-116 [facility] Comment on above: Performed By: #### U RCX #### [facility] [address] [place] [address] Dr. Caitlin Martinez ALT [Catalytic activity/Vol] 20 U/L Normal 14-59 [facility] Comment on above: Performed By: #### U RCX #### [facility] [address] [place] [address] Dr. Caitlin Martinez Anion gap [Moles/Vol] 11.6 mmol/L Normal [facility] Comment on above: Performed By: #### U RCX #### [facility] [address] [address] [address] Caitlin Martinez AST [Catalytic activity/Vol] 17 U/L Normal 15-37 [facility] Comment on above: Performed By: #### U RCX #### [facility] [address] [address] [address] Caitlin Martinez Bilirubin [Mass/Vol] 0.3 mg/dL Normal 0.2-1.0 [facility] Comment on above: Performed By: #### U RCX #### [facility] [address] [place] [address] Dr. Caitlin Martinez Calcium [Mass/Vol] 9.2 mg/dL Normal 8.5-10.1 [facility] Comment on above: Performed By: #### U RCX #### [facility] [address] [place] [address] Dr. Caitlin Martinez Chloride [Moles/Vol] 104 mmol/L Normal 98-107 [facility] Comment on above: Performed By: #### U RCX #### [facility] [address] [place] [address] Dr. Caitlin Martinez CO2 [Moles/Vol] 26.9 mmol/L Normal 21.0-32.0 [facility] Comment on above: Performed By: #### U RCX #### [facility] [address] [place] [address] Dr. Caitlin Martinez Creatinine [Mass/Vol] 0.56 mg/dL Normal 0.55-1.02 [facility] Comment on above: Performed By: #### U RCX #### [facility] [address] [place] [address] Dr. Caitlin Martinez EGFR-AF SWAZI >60 Normal >=60 [facility] Comment on above: Performed By: #### U RCX #### [facility] [address] [place] [address] Dr. Caitlin Martinez EGFR-NON AF SWAZI >60 Normal >=60 [facility] Comment on above: Performed By: #### U RCX #### [facility] [address] [address] [address] Caitlin Martinez Globulin (S) [Mass/Vol] 4.4 g/dL Normal [facility] Comment on above: Performed By: #### U RCX #### [facility] [address] [address] [address] Caitlin Martinez Glucose [Mass/Vol] 108 mg/dL Critically high 74-106 [facility] Comment on above: Performed By: #### U RCX #### [facility] [address] [address] [address] Caitlin Martinez Potassium [Moles/Vol] 3.5 mmol/L Normal 3.5-5.1 [facility] Comment on above: Performed By: #### U RCX #### [facility] [address] [address] [address] Caitlin Martinez Protein [Mass/Vol] 6.5 g/dL Normal 6.4-8.2 [facility] Comment on above: Performed By: #### U RCX #### [facility] [address] [address] [address] Caitlin Martinez Sodium [Moles/Vol] 139 mmol/L Normal 136-145 [facility] Comment on above: Performed By: #### U RCX #### [facility] [address] [address] [address] Caitlin Martinez Urea nitrogen [Mass/Vol] 7.0 mg/dL Normal 7.0-18.0 [facility] Comment on above: Performed By: #### U RCX #### [facility] [address] [address] [address] Caitlin Martinez Urea nitrogen/Creatinine [Mass ratio] 12.5 mg/mg Normal [facility] Comment on above: Performed By: #### U RCX #### [facility] [address] [address] [address] Caitlin Martinez TROPONIN, HIGH SENSITIVITYon 02-10-2022 HSTROP <4.0 Normal 4.0-51.3 [facility] Comment on above: Result Comment: CUT- OFF POINTS HAVE BEEN ESTABLISHED BASED ON THE FOURTH UNIVERSAL DEFINITIONS OF MYOCARDIAL INFARCTION. THE UPPER REFERENCE LIMIT (URL) OF TROPONIN, DEFINED THE 99TH PERCENTILE OF cTnI DISTRIBUTION IN A REFERENCE POPULATION, HAS BEEN CONFIRMED THE DECISION THRESHOLD FOR SD DIAGNOSIS. Performed By: #### U RCX #### [facility] [address] [place] [address] Dr. Caitlin Martinez CBC AUTO DIFFon 02-09-2022 BASO # 0.1 103/ul Normal 0.0-0.1 [facility] Comment on above: Performed By: #### U RCX #### [facility] [address] [place] [address] Dr. Caitlin Martinez Basophils/100 WBC (Bld) 0.6 % Normal 0.2-2.0 [facility] Comment on above: Performed By: #### U RCX #### [facility] [address] [place] [address] Dr. Caitlin Martinez EO # 0.3 103/ul Normal 0.0-0.7 [facility] Comment on above: Performed By: #### U RCX #### [facility] [address] [place] [address] Dr. Caitlin Martinez Eosinophils/100 WBC (Bld) 2.3 % Normal 0.9-7.0 [facility] Comment on above: Performed By: #### U RCX #### [facility] [address] [place] [address] Dr. Caitlin Martinez Erythrocyte distribution width (RBC) [Ratio] 14.6 % Normal 11.0-15.0 [facility] Comment on above: Performed By: #### U RCX #### [facility] [address] [place] [address] Dr. Caitlin Martinez Hematocrit (Bld) [Volume fraction] 28.8 % Critically low 36.0-48.0 [facility] Comment on above: Performed By: #### U RCX #### [facility] [address] [place] [address] Dr. Caitlin Martinez Hemoglobin (Bld) [Mass/Vol] 9.0 g/dL Critically low 12.0-16.0 [facility] Comment on above: Performed By: #### U RCX #### [facility] [address] [place] [address] Dr. Caitlin Martinez IG # 0.20 10e3/ul Critically high 0.00-0.03 [facility] Comment on above: Performed By: #### U RCX #### [facility] [address] [place] [address] Dr. Caitlin Martinez IG % 1.5 % Critically high 0.0-0.5 [facility] Comment on above: Performed By: #### U RCX #### [facility] [address] [place] [address] Dr. Caitlin Martinez LYMPH # 3.0 103/ul Normal 1.2-3.8 [facility] Comment on above: Performed By: #### U RCX #### [facility] [address] [place] [address] Dr. Caitlin Martinez Lymphocytes/100 WBC (Bld) 22.2 % Normal 20.5-60.0 [facility] Comment on above: Performed By: #### U RCX #### [facility] [address] [place] [address] Dr. Caitlin Martinez MANUAL DIFF REQ NO Normal [facility] Comment on above: Performed By: #### U RCX #### [facility] [address] [place] [address] Dr. Caitlin Martinez MCH (RBC) [Entitic mass] 26.2 pg Critically low 26.7-34.0 [facility] Comment on above: Performed By: #### U RCX #### [facility] [address] [place] [address] Dr. Caitlin Martinez MCHC (RBC) [Mass/Vol] 31.3 g/dL Normal 29.9-35.2 [facility] Comment on above: Performed By: #### U RCX #### [facility] [address] [place] [address] Dr. Caitlin Martinez MCV (RBC) [Entitic vol] 83.7 fL Normal 81.0-99.0 [facility] Comment on above: Performed By: #### U RCX #### [facility] [address] [place] [address] Dr. Caitlin Martinez MONO # 1.3 103/ul Critically high 0.3-0.8 [facility] Comment on above: Performed By: #### U RCX #### [facility] [address] [place] [address] Dr. Caitlin Martinez Monocytes/100 WBC (Bld) 9.8 % Normal 1.7-12.0 [facility] Comment on above: Performed By: #### U RCX #### [facility] [address] [place] [address] Dr. Caitlin Martinez NEUT # 8.5 103/ul Critically high 1.4-6.5 [facility] Comment on above: Performed By: #### U RCX #### [facility] [address] [place] [address] Dr. Caitlin Martinez Neutrophils/100 WBC (Bld) 63.6 % Normal 43.0-75.0 [facility] Comment on above: Performed By: #### U RCX #### [facility] [address] [place] [address] Dr. Caitlin Martinez Platelet mean volume (Bld) [Entitic vol] 9.1 fL Critically low 9.5-13.5 [facility] Comment on above: Performed By: #### U RCX #### [facility] [address] [place] [address] Dr. Caitlin Martinez PLT 355 103/ul Normal 150-[address] [facility] Comment on above: Performed By: #### U RCX #### [facility] [address] [place] [address] Dr. Caitlin Martinez RBC 3.44 106/ul Critically low 4.20-5.40 [facility] Comment on above: Performed By: #### U RCX #### [facility] [address] [place] [address] Dr. Caitlin Martinez WBC 13.3 103/ul Critically high 4.0-11.0 [facility] Comment on above: Performed By: #### U RCX #### [facility] [address] [place] [address] Dr. Caitlin Martinez SCREENon 02-09-2022 SCREEN Negative Normal [facility] Comment on above: Performed By: #### F ETSCRN #### [facility] [address] [place] [address] Dr. Caitlin Martinez CBC AUTO DIFFon 02-08-2022 BASO # 0.1 103/ul Normal 0.0-0.1 [facility] Comment on above: Performed By: #### U RCX #### [facility] [address] [place] [address] Dr. Caitlin Martinez Basophils/100 WBC (Bld) 0.4 % Normal 0.2-2.0 [facility] Comment on above: Performed By: #### U RCX #### [facility] [address] [place] [address] Dr. Caitlin Martinez EO # 0.3 103/ul Normal 0.0-0.7 [facility] Comment on above: Performed By: #### U RCX #### [facility] [address] [place] [address] Dr. Caitlin Martinez Eosinophils/100 WBC (Bld) 2.6 % Normal 0.9-7.0 [facility] Comment on above: Performed By: #### U RCX #### [facility] [address] [place] [address] Dr. Caitlin Martinez Erythrocyte distribution width (RBC) [Ratio] 14.7 % Normal 11.0-15.0 [facility] Comment on above: Performed By: #### U RCX #### [facility] [address] [place] [address] Dr. Caitlin Martinez Hematocrit (Bld) [Volume fraction] 30.6 % Critically low 36.0-48.0 [facility] Comment on above: Performed By: #### U RCX #### [facility] [address] [place] [address] Dr. Caitlin Martinez Hemoglobin (Bld) [Mass/Vol] 9.7 g/dL Critically low 12.0-16.0 [facility] Comment on above: Performed By: #### U RCX #### [facility] [address] [place] [address] Dr. Caitlin Martinez IG # 0.15 10e3/ul Critically high 0.00-0.03 [facility] Comment on above: Performed By: #### U RCX #### [facility] [address] [address] [address] Caitlin Martinez IG % 1.3 % Critically high 0.0-0.5 [facility] Comment on above: Performed By: #### U RCX #### [facility] [address] [place] [address] Dr. Caitlin Martinez LYMPH # 2.8 103/ul Normal 1.2-3.8 [facility] Comment on above: Performed By: #### U RCX #### [facility] [address] [place] [address] Dr. Caitlin Martinez Lymphocytes/100 WBC (Bld) 24.8 % Normal 20.5-60.0 [facility] Comment on above: Performed By: #### U RCX #### [facility] [address] [place] [address] Dr. Caitlin Martinez MANUAL DIFF REQ NO Normal [facility] Comment on above: Performed By: #### U RCX #### [facility] [address] [place] [address] Dr. Caitlin Martinez MCH (RBC) [Entitic mass] 26.6 pg Critically low 26.7-34.0 [facility] Comment on above: Performed By: #### U RCX #### [facility] [address] [place] [address] Dr. Caitlin Martinez MCHC (RBC) [Mass/Vol] 31.7 g/dL Normal 29.9-35.2 [facility] Comment on above: Performed By: #### U RCX #### [facility] [address] [place] [address] Dr. Caitlin Martinez MCV (RBC) [Entitic vol] 83.8 fL Normal 81.0-99.0 [facility] Comment on above: Performed By: #### U RCX #### [facility] [address] [place] [address] Dr. Caitlin Martinez MONO # 1.0 103/ul Critically high 0.3-0.8 [facility] Comment on above: Performed By: #### U RCX #### [facility] [address] [place] [address] Dr. Caitlin Martinez Monocytes/100 WBC (Bld) 8.7 % Normal 1.7-12.0 [facility] Comment on above: Performed By: #### U RCX #### [facility] [address] [place] [address] Dr. Caitlin Martinez NEUT # 7.0 103/ul Critically high 1.4-6.5 [facility] Comment on above: Performed By: #### U RCX #### [facility] [address] [place] [address] Dr. Caitlin Martinez Neutrophils/100 WBC (Bld) 62.2 % Normal 43.0-75.0 [facility] Comment on above: Performed By: #### U RCX #### [facility] [address] [place] [address] Dr. Caitlin Martinez Platelet mean volume (Bld) [Entitic vol] 9.0 fL Critically low 9.5-13.5 [facility] Comment on above: Performed By: #### U RCX #### [facility] [address] [place] [address] Dr. Caitlin Martinez PLT 373 103/ul Normal 150-[address] [facility] Comment on above: Performed By: #### U RCX #### [facility] [address] [place] [address] Dr. Caitlin Martinez RBC 3.65 106/ul Critically low 4.20-5.40 [facility] Comment on above: Performed By: #### U RCX #### [facility] [address] [place] [address] Dr. Caitlin Martinez WBC 11.3 103/ul Critically high 4.0-11.0 [facility] Comment on above: Performed By: #### U RCX #### [facility] [address] [place] [address] Dr. Caitlin Martinez Covid-19 PCR ([facility])on 01-16 SARS-CoV-2 (COVID-19) RNA JONATAN+probe Ql (Unsp spec) Not detected Normal NOT DETECTED [facility] Comment on above: Result Comment: When [...] for this test is supported by the [place] of Health and Human Service's declaration that [...] By: #### C BC #### [facility] [address] [place] [address] Dr. Caitlin Martinez DIRECT COOMBSon 02-08-2022 DIRECT EDWINA Negative Normal [facility] Comment on above: Performed By: #### D IRCMB, ABID #### [facility] [address] [place] [address] Dr. Caitlin Martinez DRUG SCREEN RAPID (URINE)on 02-08-2022 AMP Negative Normal NEGATIVE [facility] Comment on above: Performed By: #### C BC #### [facility] [address] [place] [address] Dr. Caitlin Martinez BAR Negative Normal NEGATIVE [facility] Comment on above: Performed By: #### C BC #### [facility] [address] [place] [address] Dr. Caitlin Martinez BUP Negative Normal NEGATIVE [facility] Comment on above: Performed By: #### C BC #### [facility] [address] [address] [address] Caitlin Martinez BZO Negative Normal NEGATIVE [facility] Comment on above: Performed By: #### C BC #### [facility] [address] [address] [address] Caitlin Martinez JEANNA Negative Normal NEGATIVE [facility] Comment on above: Performed By: #### C BC #### [facility] [address] [address] [address] Caitlin Martinez CUT-OFFS SEE BELOW Normal [facility] Comment on above: Result Comment: AMP [...] By: #### C BC #### [facility] [address] [place] [address] Dr. Caitlin Martinez DRUG CUT HEADER DRUG CLASS TEST SYSTEM CUT-OFF CONCENTRATIONS ARE FOLLOWS: Normal [facility] Comment on above: Performed By: #### C BC #### [facility] [address] [place] [address] Dr. Caitlin Martinez mAMP Negative Normal NEGATIVE [facility] Comment on above: Performed By: #### C BC #### [facility] [address] [place] [address] Dr. Caitlin Martinez MTD Negative Normal NEGATIVE [facility] Comment on above: Performed By: #### C BC #### [facility] [address] [place] [address] Dr. Caitlin Martinez OPI Negative Normal NEGATIVE [facility] Comment on above: Performed By: #### C BC #### [facility] [address] [address] [address] Caitlin Martinez OXY Negative Normal NEGATIVE [facility] Comment on above: Performed By: #### C BC #### [facility] [address] [address] [address] Caitlin Martinez PCP Negative Normal NEGATIVE [facility] Comment on above: Performed By: #### C BC #### [facility] [address] [address] [address] Caitlin Martinez PPX Negative Normal NEGATIVE [facility] [facility] Comment on above: Performed By: #### C BC #### [facility] [address] [place] [address] Dr. Caitlin Martinez TCA Negative Normal NEGATIVE [facility] Comment on above: Performed By: #### C BC #### [facility] [address] [place] [address] Dr. Caitlin Martinez THC Negative Normal NEGATIVE [facility] Comment on above: Performed By: #### C BC #### [facility] [address] [place] [address] Dr. Caitlin Martinez TYPE AND SCREENon 02-08-2022 TYPE AND SCREEN Negative Normal [facility] Comment on above: Performed By: #### I HORACIO #### [facility] [address] [place] [address] Dr. Caitlin Martinez US PREG BIOPHY W [...] Date: 2022-02-05 16:28 Normal [facility] AMNISUREon 01-25-2022 AMNISURE Negative Normal NEGATIVE [facility] Comment on above: Performed By: #### A MNI #### [facility] [address] [place] [address] Dr. Caitlin Martinez CULTURE URINEon 01-25-2022 CULTURE URINE Culture Observations: No growth Normal [facility] Comment on above: Performed By: #### U RCX #### [facility] [address] [place] [address] Dr. Caitlin Martinez UA (CLEAN/CATCH) TURNER OFF/MICRO I F IND.on 01-25-2022 Bilirubin Ql (U) Negative Normal NEGATIVE [facility] Comment on above: Performed By: #### C VDTBH #### [facility] [address] [place] [address] Dr. Caitlin Martinez Clarity (U) SL CLOUDY Abnormal CLEAR [facility] Comment on above: Performed By: #### C VDTBH #### [facility] [address] [place] [address] Dr. Caitlin Martinez Color (U) LT. YELLOW Normal YELLOW [facility] Comment on above: Performed By: #### C VDTBH #### [facility] [address] [place] [address] Dr. Caitlin Martinez Glucose Ql (U) Negative Normal NEGATIVE [facility] Comment on above: Performed By: #### C VDTBH #### [facility] [address] [place] [address] Dr. Caitlin Martinez Hemoglobin Ql (U) TRACE-INTACT Abnormal NEGATIVE [facility] Comment on above: Performed By: #### C VDTBH #### [facility] [address] [place] [address] Dr. Caitlin Martinez Ketones Ql (U) Negative Normal NEGATIVE [facility] Comment on above: Performed By: #### C VDTBH #### [facility] [address] [place] [address] Dr. Caitlin Martinez LEUKOCYTES TRACE Abnormal NEGATIVE [facility] Comment on above: Performed By: #### C VDTBH #### [facility] [address] [place] [address] Dr. Caitlin Martinez Nitrite Ql (U) Negative Normal NEGATIVE [facility] Comment on above: Performed By: #### C VDTBH #### [facility] [address] [place] [address] Dr. Caitlin Martinez pH (U) 6.5 [pH] Normal 5-9 [facility] Comment on above: Performed By: #### C VDTBH #### [facility] [address] [place] [address] Dr. Caitlin Martinez SPEC GRAVITY 1.020 Normal 1.005-<=1.02 5 [facility] Comment on above: Performed By: #### C VDTBH #### [facility] [address] [place] [address] Dr. Caitlin Martinez UA PROTEIN Negative Normal NEGATIVE/ TRACE [facility] Comment on above: Performed By: #### C VDTBH #### [facility] [address] [place] [address] Dr. Caitlin Martinez UR MICRO IND INDICATED Normal [facility] Comment on above: Performed By: #### C VDTBH #### [facility] [address] [place] [address] Dr. Caitlin Martinez Urobilinogen Qn (U) 0.2 {Barbara'U}/dL Normal 0.2 - 1. 0 [facility] Comment on above: Performed By: #### C VDTBH #### [facility] [address] [place] [address] Dr. Caitlin Martinez URINE MICROSCOPIC ONLYon BACTERIA MODERATE Abnormal NONE SEEN [facility] Comment on above: Performed By: #### C VDTBH #### [facility] [address] [place] [address] Dr. Caitlin Martinez Bacteria identified Cx Nom (U) INDICATED Normal [facility] Comment on above: Performed By: #### C VDTBH #### [facility] [address] [place] [address] Dr. Caitlin Martinez CAST NONE SEEN Normal NONE SEEN [facility] Comment on above: Performed By: #### C VDTBH #### [facility] [address] [place] [address] Dr. Caitlin Martinez Crystals LM Nom (Urine sed) NONE SEEN Normal NONE SEEN [facility] Comment on above: Performed By: #### C VDTBH #### [facility] [address] [place] [address] Dr. Caitlin Martinez Epithelial cells LM Ql (Urine sed) FEW Abnormal NONE SEEN /RARE [facility] Comment on above: Performed By: #### C VDTBH #### [facility] [address] [place] [address] Dr. Caitlin Martinez MUCOUS TRACE Abnormal NONE SEEN [facility] Comment on above: Performed By: #### C VDTBH #### [facility] [address] [place] [address] Dr. Caitlin Martinez RBC 2-5 Abnormal 0-2 [facility] Comment on above: Performed By: #### C VDTBH #### [facility] [address] [place] [address] Dr. Caitlin Martinez WBC 0-2 Abnormal NONE SEEN [facility] Comment on above: Performed By: #### C VDTBH #### [facility] [address] [place] [address] Dr. Caitlin Martinez AMYLASEon 01-16-2022 Amylase [Catalytic activity/Vol] 49 U/L Normal 25-115 [facility] Comment on above: Performed By: #### C VDTBH #### [facility] [address] [place] [address] Dr. Caitlin Martinez BUNon 01-16-2022 Urea nitrogen [Mass/Vol] 3.0 mg/dL Critically low 7.0-18.0 [facility] Comment on above: Performed By: #### C BC #### [facility] [address] [place] [address] Dr. Caitlin Martinez CBC AUTO DIFFon 01-16-2022 BASO # 0.1 103/ul Normal 0.0-0.1 [facility] Comment on above: Performed By: #### U RCX #### [facility] [address] [address] [address] Caitlin Martinez Basophils/100 WBC (Bld) 0.6 % Normal 0.2-2.0 [facility] Comment on above: Performed By: #### U RCX #### [facility] [address] [place] [address] Dr. Caitlin Martinez EO # 0.3 103/ul Normal 0.0-0.7 [facility] Comment on above: Performed By: #### U RCX #### [facility] [address] [place] [address] Dr. Caitlin Martinez Eosinophils/100 WBC (Bld) 2.6 % Normal 0.9-7.0 [facility] Comment on above: Performed By: #### U RCX #### [facility] [address] [place] [address] Dr. Caitlin Martinez Erythrocyte distribution width (RBC) [Ratio] 14.4 % Normal 11.0-15.0 [facility] Comment on above: Performed By: #### U RCX #### [facility] [address] [place] [address] Dr. Caitlin Martinez Hematocrit (Bld) [Volume fraction] 28.4 % Critically low 36.0-48.0 [facility] Comment on above: Performed By: #### U RCX #### [facility] [address] [place] [address] Dr. Caitlin Martinez Hemoglobin (Bld) [Mass/Vol] 9.0 g/dL Critically low 12.0-16.0 [facility] Comment on above: Performed By: #### U RCX #### [facility] [address] [place] [address] Dr. Caitlin Martinez IG # 0.11 10e3/ul Critically high 0.00-0.03 [facility] Comment on above: Performed By: #### U RCX #### [facility] [address] [place] [address] Dr. Caitlin Martinez IG % 1.1 % Critically high 0.0-0.5 [facility] Comment on above: Performed By: #### U RCX #### [facility] [address] [address] [address] Caitlin Martinez LYMPH # 2.2 103/ul Normal 1.2-3.8 [facility] Comment on above: Performed By: #### U RCX #### [facility] [address] [address] [address] Caitlin Martinez Lymphocytes/100 WBC (Bld) 21.0 % Normal 20.5-60.0 [facility] Comment on above: Performed By: #### U RCX #### [facility] [address] [address] [address] Caitlin Martinez MANUAL DIFF REQ NO Normal [facility] Comment on above: Performed By: #### U RCX #### [facility] [address] [place] [address] Dr. Caitlin Martinez MCH (RBC) [Entitic mass] 28.2 pg Normal 26.7-34.0 [facility] Comment on above: Performed By: #### U RCX #### [facility] [address] [place] [address] Dr. Caitlin Martinez MCHC (RBC) [Mass/Vol] 31.7 g/dL Normal 29.9-35.2 [facility] Comment on above: Performed By: #### U RCX #### [facility] [address] [place] [address] Dr. Caitlin Martinez MCV (RBC) [Entitic vol] 89.0 fL Normal 81.0-99.0 [facility] Comment on above: Performed By: #### U RCX #### [facility] [address] [place] [address] Dr. Caitlin Martinez MONO # 0.9 103/ul Critically high 0.3-0.8 [facility] Comment on above: Performed By: #### U RCX #### [facility] [address] [place] [address] Dr. Caitlin Martinez Monocytes/100 WBC (Bld) 8.9 % Normal 1.7-12.0 [facility] Comment on above: Performed By: #### U RCX #### [facility] [address] [address] [address] Caitlin Martinez NEUT # 6.8 103/ul Critically high 1.4-6.5 [facility] Comment on above: Performed By: #### U RCX #### [facility] [address] [address] [address] Caitlin Martinez Neutrophils/100 WBC (Bld) 65.8 % Normal 43.0-75.[address] [facility] Comment on above: Performed By: #### U RCX #### [facility] [address] [address] [address] Caitlin Martinez Platelet mean volume (Bld) [Entitic vol] 8.6 fL Critically low 9.5-13.[address] [facility] Comment on above: Performed By: #### U RCX #### [facility] [address] [place] [address] Dr. Caitlin Martinez PLT 322 103/ul Normal 150-[address] [facility] Comment on above: Performed By: #### U RCX #### [facility] [address] [address] [address] Caitlin Martinez RBC 3.19 106/ul Critically low 4.20-5.40 [facility] Comment on above: Performed By: #### U RCX #### [facility] [address] [address] [address] Caitlin Martinez WBC 10.3 103/ul Normal 4.0-11.[address] [facility] Comment on above: Performed By: #### U RCX #### [facility] [address] [address] [address] Caitlin Martinez CREATININEon 01-16-2022 Creatinine [Mass/Vol] 0.55 mg/dL Normal 0.55-1.02 [facility] Comment on above: Performed By: #### C VDTBH #### [facility] [address] [address] [address] Caitlin Martinez EGFR-AF SWAZI >60 Normal >=60 [facility] Comment on above: Performed By: #### C VDTBH #### [facility] [address] [address] [address] Caitlin Martinez EGFR-NON AF SWAZI >60 Normal >=60 [facility] Comment on above: Performed By: #### C VDTBH #### [facility] [address] [place] [address] Dr. Caitlin Martinez ELECTROLYTESon 01-16-2022 Anion gap [Moles/Vol] 13.6 mmol/L Normal [facility] Comment on above: Performed By: #### C VDTBH #### [facility] [address] [place] [address] Dr. Caitlin Martinez Chloride [Moles/Vol] 106 mmol/L Normal 98-107 [facility] Comment on above: Performed By: #### C VDTBH #### [facility] [address] [place] [address] Dr. Caitlin Martinez CO2 [Moles/Vol] 22.9 mmol/L Normal 21.0-32.0 [facility] Comment on above: Performed By: #### C VDTBH #### [facility] [address] [place] [address] Dr. Caitlin Martinez Potassium [Moles/Vol] 3.5 mmol/L Normal 3.5-5.1 [facility] Comment on above: Performed By: #### C VDTBH #### [facility] [address] [place] [address] Dr. Caitlin Martinez Sodium [Moles/Vol] 139 mmol/L Normal 136-145 [facility] Comment on above: Performed By: #### C VDTBH #### [facility] [address] [place] [address] Dr. Caitlin Martinez LIPASEon 01-16-2022 Lipase [Catalytic activity/Vol] 66.0 U/L Critically low 73.0-393.0 [facility] Comment on above: Performed By: #### C BC #### [facility] [address] [place] [address] Dr. Caitlin Martinez SGOTon 01-16-2022 AST [Catalytic activity/Vol] 12 U/L Critically low 15-37 [facility] Comment on above: Performed By: #### C VDTBH #### [facility] [address] [place] [address] Dr. Caitlin Martinez PTon 01-16-2022 ALT [Catalytic activity/Vol] 9 U/L Critically low 14-59 [facility] Comment on above: Performed By: #### C VDTBH #### [facility] [address] [place] [address] Dr. Caitlin Martinez CBC AUTO DIFFon 01-15-2022 BASO # 0.1 103/ul Normal 0.0-0.1 [facility] Comment on above: Performed By: #### C VDTBH #### [facility] [address] [place] [address] Dr. Caitlin Martinez Basophils/100 WBC (Bld) 0.4 % Normal 0.2-2.0 [facility] Comment on above: Performed By: #### C VDTBH #### [facility] [address] [place] [address] Dr. Caitlin Martinez EO # 0.2 103/ul Normal 0.0-0.7 [facility] Comment on above: Performed By: #### C VDTBH #### [facility] [address] [place] [address] Dr. Caitlin Martinez Eosinophils/100 WBC (Bld) 1.4 % Normal 0.9-7.0 [facility] Comment on above: Performed By: #### C VDTBH #### [facility] [address] [place] [address] Dr. Caitlin Martinez Erythrocyte distribution width (RBC) [Ratio] 14.1 % Normal 11.0-15.0 [facility] Comment on above: Performed By: #### C VDTBH #### [facility] [address] [place] [address] Dr. Caitlin Martinez Hematocrit (Bld) [Volume fraction] 28.4 % Critically low 36.0-48.0 [facility] Comment on above: Performed By: #### C VDTBH #### [facility] [address] [place] [address] Dr. Caitlin Martinez Hemoglobin (Bld) [Mass/Vol] 9.0 g/dL Critically low 12.0-16.[address] [facility] Comment on above: Performed By: #### C VDTBH #### [facility] [address] [place] [address] Dr. Cailtin Martinez IG # 0.18 10e3/ul Critically high 0.00-0.03 The [facility] Comment on above: Performed By: #### C VDTBH #### [facility] [address] [place] [address] Dr. Caitlin Martinez IG % 1.3 % Critically high 0.0-0.5 [facility] Comment on above: Performed By: #### C VDTBH #### [facility] [address] [place] [address] Dr. Caitlin Martinez LYMPH # 2.4 103/ul Normal 1.2-3.[address] [facility] Comment on above: Performed By: #### C VDTBH #### [facility] [address] [place] [address] Dr. Caitlin Martinez Lymphocytes/100 WBC (Bld) 16.8 % Critically low 20.5-60.[address] [facility] Comment on above: Performed By: #### C VDTBH #### [facility] [address] [place] [address] Dr. Caitlin Martinez MANUAL DIFF REQ NO Normal [facility] Comment on above: Performed By: #### C VDTBH #### [facility] [address] [place] [address] Dr. Caitlin Martinez MCH (RBC) [Entitic mass] 27.9 pg Normal 26.7-34.0 [facility] Comment on above: Performed By: #### C VDTBH #### [facility] [address] [place] [address] Dr. Caitlin Martinez MCHC (RBC) [Mass/Vol] 31.7 g/dL Normal 29.9-35.[address] [facility] Comment on above: Performed By: #### C VDTBH #### [facility] [address] [place] [address] Dr. Caitlin Martinez MCV (RBC) [Entitic vol] 87.9 fL Normal 81.0-99.0 [facility] Comment on above: Performed By: #### C VDTBH #### [facility] [address] [place] [address] Dr. Caitlin Martinez MONO # 0.9 103/ul Critically high 0.3-0.8 [facility] Comment on above: Performed By: #### C VDTBH #### [facility] [address] [place] [address] Dr. Caitlin Martinez Monocytes/100 WBC (Bld) 6.7 % Normal 1.7-12.0 [facility] Comment on above: Performed By: #### C VDTBH #### [facility] [address] [place] [address] Dr. Caitlin Martinez NEUT # 10.3 103/ul Critically high 1.4-6.5 [facility] Comment on above: Performed By: #### C VDTBH #### [facility] [address] [place] [address] Dr. Caitlin Martinez Neutrophils/100 WBC (Bld) 73.4 % Normal 43.0-75.0 [facility] Comment on above: Performed By: #### C VDTBH #### [facility] [address] [place] [address] Dr. Caitlin Martinez Platelet mean volume (Bld) [Entitic vol] 9.0 fL Critically low 9.5-13.5 [facility] Comment on above: Performed By: #### C VDTBH #### [facility] [address] [place] [address] Dr. Caitlin Martinez PLT 318 103/ul Normal 150-450 [facility] Comment on above: Performed By: #### C VDTBH #### [facility] [address] [place] [address] Dr. Caitlin Martinez RBC 3.23 106/ul Critically low 4.20-5.40 [facility] Comment on above: Performed By: #### C VDTBH #### [facility] [address] [place], [place] [address] Dr[address] Caitlin Martinez WBC 14.0 103/ul Critically high 4.0-11.0 [facility] Comment on above: Performed By: #### C VDTBH #### [facility] [address] [place], [place] [address] ABD/PELVIS WO CONon [...] Date: 2022-01-15 16:31 Normal [facility] CULTURE URINEon 01-15-2022 CULTURE URINE Culture Observations: LIGHT GROWTH OF MIXED GENITAL COSME. NO POTENTIAL PATHOGENS SEEN. Normal [facility] Comment on above: Performed By: #### U RCX #### [facility] [address] [place] [id number] [address] Caitlin Martinez UA (CLEAN/CATCH) TURNER OFF/MICRO I F IND.on 01-15-2022 Bilirubin Ql (U) Negative Normal NEGATIVE [facility] Comment on above: Performed By: #### C BC #### [facility] [address] [place] [address] Dr. Caitlin Martinez Clarity (U) CLEAR Normal CLEAR [facility] Comment on above: Performed By: #### C BC #### [facility] [address] [place] [address] Dr. Caitlin Martinez Color (U) LT. YELLOW Normal YELLOW [facility] Comment on above: Performed By: #### C BC #### [facility] [address] [place] [address] Dr. Caitlin Martinez Glucose Ql (U) Negative Normal NEGATIVE [facility] Comment on above: Performed By: #### C BC #### [facility] [address] [place] [address] Dr. Caitlin Martinez Hemoglobin Ql (U) Negative Normal NEGATIVE [facility] Comment on above: Performed By: #### C BC #### [facility] [address] [place] [address] Dr. Caitlin Martinez Ketones Ql (U) Negative Normal NEGATIVE [facility] Comment on above: Performed By: #### C BC #### [facility] [address] [place] [address] Dr. Caitlin Martinez LEUKOCYTES TRACE Abnormal NEGATIVE [facility] Comment on above: Performed By: #### C BC #### [facility] [address] [place] [address] Dr. Caitlin Martinez Nitrite Ql (U) Negative Normal NEGATIVE [facility] Comment on above: Performed By: #### C BC #### [facility] [address] [place] [address] Dr. Caitlin Martinez pH (U) 7.0 [pH] Normal 5-9 [facility] Comment on above: Performed By: #### C BC #### [facility] [address] [place] [address] Dr. Caitlin Martinez SPEC GRAVITY 1.010 Normal 1.005-<=1.02 5 [facility] Comment on above: Performed By: #### C BC #### [facility] [address] [place] [address] Dr. Caitlin Martinez UA PROTEIN Negative Normal NEGATIVE/ TRACE [facility] Comment on above: Performed By: #### C BC #### [facility] [address] [place] [address] Dr. Caitlin Martinez UR MICRO IND INDICATED Normal [facility] Comment on above: Performed By: #### C BC #### [facility] [address] [place] [address] Dr. Caitlin Martinez Urobilinogen Qn (U) 0.2 {Barbara'U}/dL Normal 0.2 - 1. [address] [facility] [facility] Comment on above: Performed By: #### C BC #### [facility] [address] [place] [address] Dr. Caitlin Martinez URINE MICROSCOPIC ONLYon BACTERIA MODERATE Abnormal NONE SEEN [facility] Comment on above: Performed By: #### C BC #### [facility] [address] [place] [address] Dr. Caitlin Martinez Bacteria identified Cx Nom (U) INDICATED Normal [facility] Comment on above: Performed By: #### C BC #### [facility] [address] [place] [address] Dr. Caitlin Martinez CAST NONE SEEN Normal NONE SEEN [facility] Comment on above: Performed By: #### C BC #### [facility] [address] [place] [address] Dr. Caitlin Martinez Crystals LM Nom (Urine sed) NONE SEEN Normal NONE SEEN [facility] Comment on above: Performed By: #### C BC #### [facility] [address] [place] [address] Dr. Catilin Martinez Epithelial cells LM Ql (Urine sed) MODERATE Abnormal NONE SEEN /RARE [facility] Comment on above: Performed By: #### C BC #### [facility] [address] [place] [address] Dr. Caitlin Martinez MUCOUS NONE SEEN Normal NONE SEEN [facility] Comment on above: Performed By: #### C BC #### [facility] [address] [place] [address] Dr. Caitlin Martinez RBC NONE SEEN Abnormal 0-[address] [facility] Comment on above: Performed By: #### C BC #### [facility] [address] [address] [address] Caitlin Martinez WBC 2-5 Abnormal NONE SEEN [facility] Comment on above: Performed By: #### C BC #### [facility] [address] [address] [address] Caitlin Martinez US APPENDIXon 01-15-2022 US [...] Date: 2022-01-15 14:14 Normal [facility] US PREG GROWTHon 01-15-2022 US PREG [...] Date: 2022-01-15 10:59 Normal [facility] US PREG PLACENTAon US PREG PLACENTA [...] Date: 2022-01-15 10:57 Normal [facility] UA (CLEAN/CATCH) TURNER OFF/MICRO I F IND.on 12-29-2021 Bilirubin Ql (U) Negative Normal NEGATIVE [facility] Comment on above: Performed By: #### C BC #### [facility] [address] [place] [address] Dr. Caitlin Martinez Clarity (U) CLEAR Normal CLEAR [facility] Comment on above: Performed By: #### C BC #### [facility] [address] [place] [address] Dr. Caitlin Martinez Color (U) LT. YELLOW Normal YELLOW [facility] Comment on above: Performed By: #### C BC #### [facility] [address] [place] [address] Dr. Caitlin Martinez Glucose Ql (U) Negative Normal NEGATIVE [facility] Comment on above: Performed By: #### C BC #### [facility] [address] [place] [address] Dr. Caitlin Martinez Hemoglobin Ql (U) Negative Normal NEGATIVE [facility] Comment on above: Performed By: #### C BC #### [facility] [address] [place] [address] Dr. Caitlin Martinez Ketones Ql (U) Negative Normal NEGATIVE [facility] Comment on above: Performed By: #### C BC #### [facility] [address] [place] [address] Dr. Caitlin Martinez LEUKOCYTES Negative Normal NEGATIVE [facility] Comment on above: Performed By: #### C BC #### [facility] [address] [place] [address] Dr. Caitlin Martinez Nitrite Ql (U) Negative Normal NEGATIVE [facility] Comment on above: Performed By: #### C BC #### [facility] [address] [place] [address] Dr. Caitlin Martinez pH (U) 6.5 [pH] Normal 5-9 [facility] Comment on above: Performed By: #### C BC #### [facility] [address] [place] [address] Dr. Caitlin Martinez SPEC GRAVITY 1.020 Normal 1.005-<=1.02 [address] [facility] Comment on above: Performed By: #### C BC #### [facility] [address] [place] [address] Dr. Caitlin Martinez UA PROTEIN Negative Normal NEGATIVE/ TRACE [facility] Comment on above: Performed By: #### C BC #### [facility] [address] [place] [address] Dr. Caitlin Martinez UR MICRO IND NOT INDICATED Normal [facility] Comment on above: Performed By: #### C BC #### [facility] [address] [place] [address] Dr. Caitlin Martinez Urobilinogen Qn (U) 1.0 {Barbara'U}/dL Normal 0.2 - 1. [address] [facility] Comment on above: Performed By: #### C BC #### [facility] [address] [place] [address] Dr. Caitlin Martinez US PREG CERVICAL LENGTHon [...] Date: 2021-12-29 15:53 Normal [address] [facility] UA (CLEAN/CATCH) TURNER OFF/MICRO I F IND.on 12-18-2021 Bilirubin Ql (U) Negative Normal NEGATIVE [facility] Comment on above: Performed By: #### C BC #### [facility] [address] [place] [address] Dr. Caitlin Martinez Clarity (U) CLEAR Normal CLEAR [facility] Comment on above: Performed By: #### C BC #### [facility] [address] [place] [address] Dr. Caitlin Martinez Color (U) YELLOW Normal YELLOW [facility] Comment on above: Performed By: #### C BC #### [facility] [address] [place] [address] Dr. Caitlin Martinez Glucose Ql (U) Negative Normal NEGATIVE [facility] Comment on above: Performed By: #### C BC #### [facility] [address] [place] [address] Dr. Caitlin Martinez Hemoglobin Ql (U) Negative Normal NEGATIVE [facility] Comment on above: Performed By: #### C BC #### [facility] [address] [place] [address] Dr. Caitlin Martinez Ketones Ql (U) TRACE Abnormal NEGATIVE [facility] Comment on above: Performed By: #### C BC #### [facility] [address] [place] [address] Dr. Caitlin Martinez LEUKOCYTES Negative Normal NEGATIVE [facility] Comment on above: Performed By: #### C BC #### [facility] [address] [place] [address] Dr. Caitlin Martinez Nitrite Ql (U) Negative Normal NEGATIVE [facility] Comment on above: Performed By: #### C BC #### [facility] [address] [place] [address] Dr. Caitlin Martinez pH (U) 6.0 [pH] Normal 5-9 [facility] Comment on above: Performed By: #### C BC #### [facility] [address] [place] [address] Dr. Caitlin Martinez SPEC GRAVITY 1.025 Normal 1.005-<=1.02 5 [facility] Comment on above: Performed By: #### C BC #### [facility] [address] [place] [address] Dr. Caitlin Martinez UA PROTEIN Negative Normal NEGATIVE/ TRACE [facility] Comment on above: Performed By: #### C BC #### [facility] [address] [place] [address] Dr. Caitlin Martinez UR MICRO IND NOT INDICATED Normal [facility] Comment on above: Performed By: #### C BC #### [facility] [address] [place] [address] Dr. Caitlin Martinez Urobilinogen Qn (U) 4 {Barbara'U}/dL Abnormal 0.2 - 1.0 [facility] Comment on above: Performed By: #### C BC #### [facility] [address] [place] [address] Dr. Caitlin Martinez RHOGAMon 11-28-2021 RHOGAM Status Information Issued Quantity 1 Product ID Rh Immune Globulin Lot Number [id number] Issue Date/Time [id number] Normal [facility] Comment on above: Performed By: #### I HORACIO #### [facility] [address] [place] [address] Dr. Caitlin Martinez TYPE AND SCREENon 11-27-2021 TYPE AND SCREEN Negative Normal [facility] Comment on above: Performed By: #### T NS #### [facility] [address] [place] [address] Dr. Caitlin Martinez CULTURE URINEon 11-23-2021 CULTURE URINE Culture Observations: No growth Normal [facility] Comment on above: Performed By: #### I HORACIO #### [facility] [address] [place] [address] Dr. Caitlin Martinez UA (CLEAN/CATCH) TURNER OFF/MICRO I F IND.on 11-23-2021 Bilirubin Ql (U) Negative Normal NEGATIVE [facility] Comment on above: Performed By: #### U RCX #### [facility] [address] [place] [address] Dr. Caitlin Martinez Clarity (U) CLEAR Normal CLEAR [facility] Comment on above: Performed By: #### U RCX #### [facility] [address] [place] [address] Dr. Caitlin Martinez Color (U) LT. YELLOW Normal YELLOW [facility] Comment on above: Performed By: #### U RCX #### [facility] [address] [address] [address] Caitlin Martinez Glucose Ql (U) Negative Normal NEGATIVE [facility] Comment on above: Performed By: #### U RCX #### [facility] [address] [address] [address] Caitlin Martinez Hemoglobin Ql (U) Negative Normal NEGATIVE [facility] Comment on above: Performed By: #### U RCX #### [facility] [address] [address] [address] Caitlin Martinez Ketones Ql (U) Negative Normal NEGATIVE [facility] Comment on above: Performed By: #### U RCX #### [facility] [address] [place] [address] Dr. Caitlin Martinez LEUKOCYTES SMALL Abnormal NEGATIVE [facility] Comment on above: Performed By: #### U RCX #### [facility] [address] [place] [address] Dr. Caitlin Martinez Nitrite Ql (U) Negative Normal NEGATIVE [facility] Comment on above: Performed By: #### U RCX #### [facility] [address] [place] [address] Dr. Caitlin Martinez pH (U) 6.5 [pH] Normal 5-9 [facility] Comment on above: Performed By: #### U RCX #### [facility] [address] [place] [address] Dr. Caitlin Martinez SPEC GRAVITY 1.010 Normal 1.005-<=1.02 5 [facility] Comment on above: Performed By: #### U RCX #### [facility] [address] [place] [address] Dr. Caitlin Martinez UA PROTEIN Negative Normal NEGATIVE/ TRACE [facility] Comment on above: Performed By: #### U RCX #### [facility] [address] [place] [address] Dr. Caitlin Martinez UR MICRO IND INDICATED Normal [facility] Comment on above: Performed By: #### U RCX #### [facility] [address] [place] [address] Dr. Caitlin Martinez Urobilinogen Qn (U) 0.2 {Barbara'U}/dL Normal 0.2 - 1. [address] [facility] Comment on above: Performed By: #### U RCX #### [facility] [address] [place] [address] Dr. Caitlin Martinez URINE MICROSCOPIC ONLYon BACTERIA TRACE Abnormal NONE SEEN [facility] Comment on above: Performed By: #### U RCX #### [facility] [address] [place] [address] Dr. Caitlin Martinez Bacteria identified Cx Nom (U) INDICATED Normal [facility] Comment on above: Performed By: #### U RCX #### [facility] [address] [place] [address] Dr. Caitlin Martinez CAST SEEN Abnormal NONE SEEN [facility] Comment on above: Performed By: #### U RCX #### [facility] [address] [place] [address] Dr. Caitlin Martinez Crystals LM Nom (Urine sed) SEEN Abnormal NONE SEEN [facility] Comment on above: Performed By: #### U RCX #### [facility] [address] [place] [address] Dr. Caitlin Martinez Epithelial cells LM Ql (Urine sed) RARE Normal NONE SEEN /RARE [facility] Comment on above: Performed By: #### U RCX #### [facility] [address] [place] [address] Dr. Caitlin Martinez MUCOUS TRACE Abnormal NONE SEEN [facility] Comment on above: Performed By: #### U RCX #### [facility] [address] [place] [address] Dr. Caitlin Martinez RBC 0-2 Normal 0-[address] [facility] Comment on above: Performed By: #### U RCX #### [facility] [address] [place] [address] Dr. Caitlin Martinez WBC 2-5 Abnormal NONE SEEN [facility] Comment on above: Performed By: #### U RCX #### [facility] [address] [place] [address] Dr. Caitlin Martinez GLUCOSE - 1HRon 11-06-2021 Glucose [Mass/Vol] 131 mg/dL Critically high 74-106 [facility] Comment on above: Performed By: #### I HORACIO #### [facility] [address] [place] [address] Dr. Caitlin Martinez HEMOGRAM AND PLATELon 2021 Hematocrit (Bld) [Volume fraction] 34.2 % Critically low 36.0-48.0 [facility] Comment on above: Performed By: #### C BC #### [facility] [address] [place] [address] Dr. Caitlin Martinez Hemoglobin (Bld) [Mass/Vol] 11.3 g/dL Critically low 12.0-16.0 [facility] Comment on above: Performed By: #### C BC #### [facility] [address] [place] [address] Dr. Caitlin Martinez MCH (RBC) [Entitic mass] 31.7 pg Normal 26.7-34.0 [facility] Comment on above: Performed By: #### C BC #### [facility] [address] [place] [address] Dr. Caitlin Martinez MCHC (RBC) [Mass/Vol] 33.0 g/dL Normal 29.9-35.2 [facility] Comment on above: Performed By: #### C BC #### [facility] [address] [place] [address] Dr. Caitlin Martinez MCV (RBC) [Entitic vol] 96.1 fL Normal 81.0-99.0 [facility] Comment on above: Performed By: #### C BC #### [facility] [address] [place] [address] Dr. Caitlin Martinez PLT 372 103/ul Normal 150-[address] [facility] Comment on above: Performed By: #### C BC #### [facility] [address] [place] [address] Dr. Caitlin Martinez RBC 3.56 106/ul Critically low 4.20-5.40 [facility] Comment on above: Performed By: #### C BC #### [facility] [address] [address] [address] Caitlin Martinez WBC 10.1 103/ul Normal 4.0-11.0 [facility] Comment on above: Performed By: #### C BC #### [facility] [address] [address] [address] Caitlin Martinez CHLAMYDIA/GONOCOCCUS JONATAN (SW AB/URINE/PAPon 10-31-2021 Chlamydia trachomatis, JONATAN Negative Normal Negative [facility] Comment on above: Performed By: #### C BC #### [facility] [address] [address] [address] Caitlin Martinez Neisseria gonorrhoeae, JONATAN Negative Normal Negative [facility] Comment on above: Performed By: #### C BC #### [facility] [address] [place] [address] Dr. Caitlin Martinez VAGINITIS/VAGINOSIS DNA PROB Paramjit 10-29-2021 Shannon species Negative Normal Negative [facility] Comment on above: Performed By: #### U RCX #### [facility] [address] [place] [address] Dr. Caitlin Martinez Gardnerella vaginalis Negative Normal Negative [facility] Comment on above: Performed By: #### U RCX #### [facility] [address] [place] [address] Dr. Caitlin Martinez Trichomonas vaginalis Negative Normal Negative [facility] Comment on above: Performed By: #### U RCX #### [facility] [address] [place] [address] Dr. Caitlin Martinez US PREG INCOMPLETE ANATOMYon [...] by: DAVID BLACKMON Date: 2021-10-26 12:05 Normal [facility] CBC W MANUAL DIFFon 10-25-19 22 ATYPICAL LYMPH # Normal [facility] Comment on above: Performed By: #### U RCX #### [facility] [address] [place] [address] Dr. Caitlin Martinez ATYPICAL LYMPH % Normal [facility] Comment on above: Performed By: #### U RCX #### [facility] [address] [address] [address] Caitlin Martinez BAND # 0.1 103/ul Normal 0.0-0.3 [facility] Comment on above: Performed By: #### U RCX #### [facility] [address] [place] [address] Dr. Caitlin Martinez BAND % 1 % Normal 0-5 [facility] Comment on above: Performed By: #### U RCX #### [facility] [address] [place] [address] Dr. Caitlin Martinez BASOM # 0.00 103/ul Normal 0.00-0.10 [facility] Comment on above: Performed By: #### U RCX #### [facility] [address] [place] [address] Dr. Caitlin Martinez BASOM % 0.0 % Critically low 0.2-2.0 [facility] Comment on above: Performed By: #### U RCX #### [facility] [address] [place] [address] Dr. Caitlin Martinez BLAST # Normal [facility] Comment on above: Performed By: #### U RCX #### [facility] [address] [place] [address] Dr. Caitlin Martinez BLAST % Normal [facility] Comment on above: Performed By: #### U RCX #### [facility] [address] [place] [address] Dr. Caitlin Martinez CORRECTED WBC Normal 4.0-11.0 [facility] Comment on above: Performed By: #### U RCX #### [facility] [address] [place] [address] Dr. Caitlin Martinez EOS # 0.12 103/ul Normal 0.00-0.70 [facility] Comment on above: Performed By: #### U RCX #### [facility] [address] [address] [address] Caitlin Martinez EOS% 1.0 % Normal 0.9-7.0 [facility] Comment on above: Performed By: #### U RCX #### [facility] [address] [address] [address] Caitlin Martinez HCT 31.5 % Critically low 36.0-48.0 [facility] Comment on above: Performed By: #### U RCX #### [facility] [address] [address] [address] Caitlin Martinez HGB 10.5 g/dl Critically low 12.0-16.0 [facility] Comment on above: Performed By: #### U RCX #### [facility] [address] [address] [address] Caitlin Martinez LYMPHM # 0.37 103/ul Critically low 1.20-3.80 [facility] Comment on above: Performed By: #### U RCX #### [facility] [address] [place] [address] Dr. Caitlin Martinez LYMPHM% 3.0 % Critically low 20.5-60.0 [facility] Comment on above: Performed By: #### U RCX #### [facility] [address] [address] [address] Caitlin Martinez MCH 31.8 pg Normal 26.7-34.0 [facility] Comment on above: Performed By: #### U RCX #### [facility] [address] [address] [address] Caitlin Martinez MCHC 33.3 g/dl Normal 29.9-35.[address] [facility] Comment on above: Performed By: #### U RCX #### [facility] [address] [place] [address] Dr. Caitlin Martinez MCV 95.5 fL Normal 81.0-99.0 [facility] Comment on above: Performed By: #### U RCX #### [facility] [address] [place] [address] Dr. Caitlin Martinez METAMYELOCYTE # Normal [facility] Comment on above: Performed By: #### U RCX #### [facility] [address] [place] [address] Dr. Caitlin Martinez METAMYELOCYTE % Normal [facility] Comment on above: Performed By: #### U RCX #### [facility] [address] [address] [address] Caitlin Martinez MONOM# 0.73 103/ul Normal 0.30-0.80 [facility] Comment on above: Performed By: #### U RCX #### [facility] [address] [place] [address] Dr. Caitlin Martinez MONOM% 6.0 % Normal 1.7-12.0 [facility] Comment on above: Performed By: #### U RCX #### [facility] [address] [place] [address] Dr. Caitlni Martinez MPV 9.5 fL Normal 9.5-13.5 [facility] Comment on above: Performed By: #### U RCX #### [facility] [address] [place] [address] Dr. Caitlin Martinez MYELOCYTE # Normal [facility] Comment on above: Performed By: #### U RCX #### [facility] [address] [place] [address] Dr. Caitlin Martinez MYELOCYTE % Normal [facility] Comment on above: Performed By: #### U RCX #### [facility] [address] [place] [address] Dr. Caitlin Martinez NRBC Normal [facility] Comment on above: Performed By: #### U RCX #### [facility] [address] [place] [address] Dr. Caitlin Martinez PLT 275 103/ul Normal 150-[address] [facility] Comment on above: Performed By: #### U RCX #### [facility] [address] [place] [address] Dr. Caitlin Martinez RBC 3.30 106/ul Critically low 4.20-5.40 [facility] Comment on above: Performed By: #### U RCX #### [facility] [address] [place] [address] Dr. Caitlin Martinez RDW 13.6 % Normal 11.0-15.0 [facility] Comment on above: Performed By: #### U RCX #### [facility] [address] [place] [address] Dr. Caitlin Martinez SEG # 10.86 103/ul Critically high 1.40-6.50 [facility] Comment on above: Performed By: #### U RCX #### [facility] [address] [place] [address] Dr. Caitlin Martinez SEG % 89.0 % Critically high 43.0-75.0 [facility] Comment on above: Performed By: #### U RCX #### [facility] [address] [place] [address] Dr. Caitlin Martinez WBC 12.2 103/ul Critically high 4.0-11.0 [facility] Comment on above: Performed By: #### U RCX #### [facility] [address] [place] [address] Dr. Caitlin Martinez ER URINE PROFILEon 2 Bilirubin Ql (U) Negative Normal NEGATIVE [facility] Comment on above: Performed By: #### C VDTBH #### [facility] [address] [place] [address] Dr. Caitlin Martinez Clarity (U) SL CLOUDY Abnormal CLEAR The [facility] Comment on above: Performed By: #### C VDTBH #### [facility] [address] [place] [address] Dr. Caitlin Martinez Color (U) YELLOW Normal YELLOW The [facility] Comment on above: Performed By: #### C VDTBH #### [facility] [address] [place] [address] Dr. Caitlin Martinez ERUAHNadine A micrscopic examination will be performed if indicated. Normal The [facility] Comment on above: Performed By: #### C VDTBH #### [facility] [address] [address] [address] Caitlin Martinez Glucose Ql (U) Negative Normal NEGATIVE [facility] Comment on above: Performed By: #### C VDTBH #### [facility] [address] [place] [address] Dr. Caitlin Martinez Hemoglobin Ql (U) Negative Normal NEGATIVE [facility] Comment on above: Performed By: #### C VDTBH #### [facility] [address] [place] [address] Dr. Caitlin Martinez Ketones Ql (U) >=80 Abnormal NEGATIVE [facility] Comment on above: Performed By: #### C VDTBH #### [facility] [address] [place] [address] Dr. Caitlin Martinez LEUKOCYTES Negative Normal NEGATIVE [facility] Comment on above: Performed By: #### C VDTBH #### [facility] [address] [place] [address] Dr. Caitlin Martinez Nitrite Ql (U) Negative Normal NEGATIVE [facility] Comment on above: Performed By: #### C VDTBH #### [facility] [address] [place] [address] Dr. Caitlin Martinez pH (U) 6.0 [pH] Normal 5-9 [facility] Comment on above: Performed By: #### C VDTBH #### [facility] [address] [place] [address] Dr. Caitlin Martinez SPEC GRAVITY 1.020 Normal 1.005-<=1.02 5 [facility] Comment on above: Performed By: #### C VDTBH #### [facility] [address] [place] [address] Dr. Caitlin Martinez UA PROTEIN Negative Normal NEGATIVE/ TRACE The [facility] Comment on above: Performed By: #### C VDTBH #### [facility] [address] [place] [address] Dr. Caitlin Martinez UR MICRO IND NOT INDICATED Normal [facility] Comment on above: Performed By: #### C VDTBH #### [facility] [address] [place] [address] Dr. Caitlin Martinez Urobilinogen Qn (U) 1.0 {Barbara'U}/dL Normal 0.2 - 1. 0 [facility] Comment on above: Performed By: #### C VDTBH #### [facility] [address] [place] [address] Dr. Caitlin Martinez INFLUENZA A AND B AGon 10-24 INFLUBNEG SEE BELOW Normal [facility] Comment on above: Result Comment: Nega tive for Flu B protein antigen. Infection due to Flu B cannot be ruled out. Flu B antigen in the sample may be below the detection limit of the test. Performed By: #### C VDTBH #### [facility] [address] [place] [address] Dr. Caitlin Martinez INFLUENZA A AG Positive Abnormal NEGATIVE SEE COMMENT [facility] Comment on above: Performed By: #### C VDTBH #### [facility] [address] [place] [address] Dr. Caitlin Martinez INFLUENZA B AG Negative Normal NEGATIVE SEE COMMENT [facility] Comment on above: Performed By: #### C VDTBH #### [facility] [address] [place] [address] Dr. Caitlin Martinez INFLUPOS SEE BELOW Normal [facility] Comment on above: Result Comment: NOTE : Live attenuated influenzae vaccine viruses can cause a positive result for a rapid influenza diagnostic test if administered up to 7 days prior to rapid testing. Performed By: #### C VDTBH #### [facility] [address] [place] [address] Dr. Caitlin Martinez INTERNAL CONTROLS Within Normal Limits Normal Wi thin Normal Limits The [facility] Comment on above: Performed By: #### C VDTBH #### [facility] [address] [place] [address] Dr. Caitlin Martinez PROF CHEM 8 (BAS METB)on Anion gap [Moles/Vol] 14.4 mmol/L Normal Th [facility] Comment on above: Performed By: #### D IRCMB, ABID #### [facility] [address] [address] [address] Caitlin Martinez Calcium [Mass/Vol] 8.4 mg/dL Critically low 8.5-10.1 [facility] Comment on above: Performed By: #### D IRCMB, ABID #### [facility] [address] [address] [address] Caitlin Martinez Chloride [Moles/Vol] 101 mmol/L Normal 98-107 [facility] Comment on above: Performed By: #### D IRCMB, ABID #### [facility] [address] [address] [address] Caitlin Martinez CO2 [Moles/Vol] 19.7 mmol/L Critically low 21.0-32.0 [facility] Comment on above: Performed By: #### D IRCMB, ABID #### [facility] [address] [address] [address] Caitlin Martinez Creatinine [Mass/Vol] 0.55 mg/dL Normal 0.55-1.02 [facility] Comment on above: Performed By: #### D IRCMB, ABID #### [facility] [address] [address] [address] Caitlin Martinez EGFR-AF SWAZI >60 Normal >=60 [facility] Comment on above: Performed By: #### D IRCMB, ABID #### [facility] [address] [address] [address] Caitlin Martinez EGFR-NON AF SWAZI >60 Normal >=60 [facility] Comment on above: Performed By: #### D IRCMB, ABID #### [facility] [address] [address] [address] Caitlin Martinez Glucose [Mass/Vol] 91 mg/dL Normal 74-106 [facility] Comment on above: Performed By: #### D IRCMB, ABID #### [facility] [address] [address] [address] Caitlin Martinez Potassium [Moles/Vol] 3.1 mmol/L Critically low 3.5-5.1 [facility] Comment on above: Performed By: #### D IRCMB, ABID #### [facility] [address] [address] [address] Caitlin Martinez Sodium [Moles/Vol] 132 mmol/L Critically low 136-145 [facility] Comment on above: Performed By: #### D IRCMB, ABID #### [facility] [address] [address] [address] Caitlin Martinez Urea nitrogen [Mass/Vol] 7.0 mg/dL Normal 7.0-18.0 [facility] Comment on above: Performed By: #### D IRCMB, ABID #### [facility] [address] [address] [address] Caitlin Martinez Urea nitrogen/Creatinine [Mass ratio] 12.7 mg/mg Normal [facility] Comment on above: Performed By: #### D IRCMB, ABID #### [facility] [address] [place] [address] Dr. Caitlin Martinez US PREG ANATOMY SINGLEon [...] DAVID BLACKMON Date: 2021-09-28 09:17 Normal [facility] CHEMISTRYOrdered By: SYSTEM SYSTEM on 06-21-2021 [place] [id number] m[IU]/mL High 1 - 3 mIU/mL MEDICAL [...] gas pattern is nonobstructive. There is a uvzpoulk-ym-ynfkt amount of stool burden. IMPRESSION: No malalignment. No acute compression deformity. Asfxhuvd-ec-zrdse amount of stool burden. [employer] Workstation ID: [id number] Dictated by: LUBA GARCÍA on Sat Mar 05, 2020 4:09:51 PM EDT Transcribed by: KELVIN GUADALUPE on Sat Mar 05, 2020 4:17:18 PM EDT Finalized by: LUBA GARCÍA on Sat Mar 05, 2020 7:52:11 PM EDT Normal [facility] Comment on above: Order Comment: Injur y/Trauma or Illness?:Illness/Other How long have you had these symptoms (acute/chronic)?:Chronic Reason for exam?:low back pain History of cancer?:n Surgeries, chemotherapy, or radiation?:n Type of Exam?:Initial Additional signs and symptoms?:fibromyalgia XR Lumbar Spine 2-3 Views (S tandard)on 03-05-2020 No malalignment. No acute compression deformity. Kuxryupg-bn-ubahp amount of stool burden. [employer] Workstation ID: [id number] [facility] EXAMINATION: XR LUMBAR SPINE 2-3 VIEWS [...] gas pattern is nonobstructive. There is a ybwbmdxi-sr-hzgea amount of stool burden. [facility] Interface, Rad In Jose Luis Speechq [...] gas pattern is nonobstructive. There is a kbaqvjtj-pi-pgfbz amount of stool burden. IMPRESSION: No malalignment. No acute compression deformity. Sjvrmswf-hu-opirn amount of stool burden. [employer] Workstation ID: [id number] [facility] CNOVon 10-28-2018 CNOV Office Visit (OLVIN) MICHELLE GODINEZ ([id number]) 1995 F Date Time Provider Department 10/28/18 [...] MD [address] [facility] [address] Consult requested for an opinion regarding the [...] TIME: 12:44 PM Referring Provider: REBECCA LANGE [[id number]] Allergies As of Date: 10/28/2018 (No Known [...] Status:Closed by YOAN RODRIGUEZ MD on 10/29/18 [facility] PROGRESSon 10-28-2018 Protein mass conc HNO ID: [id number] Author: Yoan Rodriguez Service: ? Author Type: Physician Type: Progress Notes Filed: 10/29/2018 3:03 PM Note Text: VASCULAR SURGERY INITIAL CONSULT SERVICE DATE: 10/28/2018 SERVICE TIME: 12:44 PM PRIMARY CARE PHYSICIAN: Rebecca Lange MD REFERRING PROVIDER: Rebecca Lange MD [address] [facility] [address] Consult requested for an opinion regarding the [...] right carotid stenosis. Patient recently evaluated in [facility] ED after she became dizzy and [...] 28, 2018 TIME: 12:44 PM Normal [facility] Vital Signs Date Time Vital Sign Value Performing Clinician Facility 10-19-2024 13:21-0400 Body mass index (BMI) [Ratio] 32.42 kg/m2 Edward Justen DO Work Phone: [facility] 10-19-2024 13:21-0400 Body weight 83.01 kg Edward Justen DO Work Phone: [facility] 10-19-2024 13:21-0400 Diastolic blood pressure 72 mm[Hg] Edward Justen DO Work Phone: [facility] 10-19-2024 13:21-0400 Systolic blood pressure 118 mm[Hg] Edward Justen DO Work Phone: [facility] 09-15-2024 11:48-0400 Body mass index (BMI) [Ratio] 32.74 kg/m2 Edward Justen DO Work Phone: [facility] 09-15-2024 11:48-0400 Body weight 83.83 kg Edward Justen DO Work Phone: [facility] 09-15-2024 11:48-0400 Diastolic blood pressure 70 mm[Hg] Edward Justen DO Work Phone: [facility] 09-15-2024 11:48-0400 Systolic blood pressure 112 mm[Hg] Edward Justen DO Work Phone: [facility] 05-07-2024 14:16-0500 Blood Pressure Location LEYDIRUTH JEFFERS [facility] 05-07-2024 14:16-0500 Diastolic blood pressure 82 mm[Hg] LEYDI JEFFERS [facility] 05-07-2024 14:16-0500 Heart rate 96 /min LEYDI JEFFERS [facility] 05-07-2024 14:16-0500 Systolic blood pressure 134 mm[Hg] LEYDI JEFFERS [facility] 04-21-2024 14:26-0500 Body mass index (BMI) [Ratio] 32.62 kg/m2 Edward Justen DO Work Phone: [facility] 04-21-2024 14:26-0500 Body weight 83.52 kg Edward Justen DO Work Phone: [facility] 04-21-2024 14:26-0500 Diastolic blood pressure 64 mm[Hg] Edward Justen DO Work Phone: [facility] 04-21-2024 14:26-0500 Systolic blood pressure 104 mm[Hg] Edward Justen DO Work Phone: [facility] 03-23-2024 11:38-0400 Body mass index (BMI) [Ratio] 32.24 kg/m2 Betsy Hamden PA Work Phone: [facility] 03-23-2024 11:38-0400 Body weight 82.56 kg Betsy Hamden PA Work Phone: [facility] 03-23-2024 11:38-0400 Diastolic blood pressure 64 mm[Hg] Betsy Hamden PA Work Phone: [facility] 03-23-2024 11:38-0400 Systolic blood pressure 114 mm[Hg] Betsy Christa PA Work Phone: [facility] 03-02-2024 10:24-0400 Body height 160 cm Janie Ria DO Work Phone: [facility] 03-02-2024 10:24-0400 Body mass index (BMI) [Ratio] 34.19 kg/m2 Janie Ria DO Work Phone: [facility] 03-02-2024 10:24-0400 Body weight 87.54 kg Janie Ria DO Work Phone: [facility] 03-02-2024 10:24-0400 Diastolic blood pressure 68 mm[Hg] Janie Theodore DO Work Phone: [facility] 03-02-2024 10:24-0400 Heart rate 74 /min Janie Theodore DO Work Phone: [facility] 03-02-2024 10:24-0400 Respiratory rate 12 /min Janie Theodore DO Work Phone: [facility] 03-02-2024 10:24-0400 SaO2% (BldA) [Mass fraction] 99 % Janie Theodore DO Work Phone: [facility] 03-02-2024 10:24-0400 Systolic blood pressure 118 mm[Hg] Janie Theodore DO Work Phone: [facility] 11-07-2023 13:01-0400 Body weight 76.77 kg Mitul Rdz MD Work Phone: [facility] 11-07-2023 13:01-0400 Diastolic blood pressure 53 mm[Hg] Mitul Rdz MD Work Phone: [facility] 11-07-2023 13:01-0400 Heart rate 66 /min Mitul Rdz MD Work Phone: [facility] 11-07-2023 13:01-0400 Systolic blood pressure 107 mm[Hg] Mitul Rdz MD Work Phone: [facility] 07-19-2023 09:31-0500 Body mass index (BMI) [Ratio] 26.79 kg/m2 [facility] Nurse [facility] 07-19-2023 09:31-0500 Body weight 73.03 kg [facility] Nurse [facility] 07-19-2023 09:31-0500 Diastolic blood pressure 72 mm[Hg] [facility] Nurse [facility] 07-19-2023 09:31-0500 Systolic blood pressure 118 mm[Hg] Noms Nurse [facility] Healthcare Encounters Encounter Date Encounter Type Care Provider Facility Start: 10-19-2024 End: 10-19-2024 Bamboo flowsheet Edward Justen DO Work Phone: [facility] Start: 10-19-2024 End: 10-22-2024 Bamboo flowsheet Edward Justen DO Work Phone: [...] visit 15 minutes Betsy BUCHANAN Work Phone: [facility] Comment on above: Yeast [...] encounter procedure LEYDI JEFFERS [facility] Start: 04-24-2024 ambulatory LE[facility]DI JEFFERS [facility] Start: 04-21-2024 End: 04-21-2024 Bamboo flowsheet Edward [...] encounter procedure DO Janie Theodore Work Phone: [facility] [address] Work Phone: Start: 04-16-2024 End: 04-16-2024 ambulatory Iogr Becerra [facility] Work Phone: Start: 03-23-2024 End: 03-23-2024 care visit Betsy BUCHANAN Work Phone: [facility] Comment on above: 6 weeks f ollow-up Start: 03-23-2024 End: 03-23-2024 ambulatory BETSY GOODWIN Not Available Start: 03-10-2024 End: 03-10-2024 Clinisync Result Encounter Jaine Theodore DO Work Phone: [facility] Unsolicited Start: 03-10-2024 End: 03-10-2024 Clinisync Result Encounter Janie Theodore DO Work Phone: [facility] Unsolicited Start: 03-10-2024 End: 03-10-2024 ambulatory Janie Theodore [facility] Work Phone: Start: 03-10-2024 End: 03-10-2024 Departed Referred DO Janie Theodore Work Phone: [facility] Start: 03-04-2024 End: 03-05-2024 Telephone encounter Janie Theodore DO Work Phone: [facility] Comment on above: Abdominal Pain (Teresa ent scheduled for surgery on 03/10. Patient is complaining of pain radiating from breast bone to belly button and asking if this is normal.) Start: 03-02-2024 End: 03-02-2024 Bamboo flowsheet Janie Theodore DO Work Phone: [facility] Start: 03-02-2024 End: 03-02-2024 Bamboo flowsheet Janie Theodore DO Work Phone: [facility] Start: 03-02-2024 End: 03-02-2024 Office outpatient new 45 minutes Janie Theodore DO Work Phone: [facility] Comment on above: Symptomatic cholelit hiasis [...] encounter Jennifer Smiley RN [facility] Start: 11-12-2023 End: 11-12-2023 ambulatory EDWARD JUSTEN Not Available Start: 11-07-2023 End: 11-08-2023 ambulatory EDWARD R JUSTEN [facility] Start: 11-07-2023 End: 11-07-2023 Office consultation new/estab patient 60 min Mitul Rdz MD Work Phone: [facility] Comment on above: 24 weeks gestation o f (Primary Dx); Single umbilical artery; Circumvallate placenta during in second trimester, antepartum; Family history of cystic fibrosis Start: 10-23-2023 End: 10-23-2023 Chart abstracting Scanning Provider External [facility] Start: 10-22-2023 End: 10-23-2023 Chart abstracting Mitul Rdz MD Work Phone: [facility] Start: 07-25-2023 Clinisync Result Encounter Edward Justen DO Work Phone: [facility] Unsolicited Start: 07-25-2023 Clinisync Result Encounter Edward Justen DO Work Phone: [facility] Unsolicited Start: 07-19-2023 End: 07-19-2023 Office outpatient visit 5 minutes [facility] Justen Nurse [facility] Comment on above: GA: 9w0d Start: 07-08-2023 ambulatory Royer Layne acility:[facility] Start: 07-30-2022 End: 07-31-2022 ambulatory [...] Start: 06-21-2021 End: 09-19-2021 Recurring Edward CAMPUZANO [facility] Start: 03-05-2020 End: 03-06-2020 Patient encounter procedure [facility] Start: 03-05-2020 End: 03-05-2020 Subsequent hospital visit [facility] Work Phone: [facility] Comment on above: Chronic [...] Td Vaccines (8 - Td or Tdap) [facility] Start: 09-16-2026 Screening for malign ant neoplasm of cervix Pap Smear [facility] Start: 02-15-2025 Influenza vaccination Influenz a Vaccine (Season Ended) [facility] Start: 11-30-2024 End: 11-30-2024 Patient encounter procedure 11/30/2024 10:50 AM EDT Consult [facility] [address] [place] [id number] Edward Campuzano, [address] [place] [address] [facility] Start: 11-06-2024 Tobacco Screening Tobacco Screening [facility] Start: 10-19-2024 End: 10-19-2024 Patient encounter procedure [facility] Comment on above: Arrived Start: 10-01-2024 End: 10-01-2024 Patient encounter procedure [facility] Comment on above: Arrived Start: 09-23-2024 End: 09-23-2024 Patient encounter procedure 09/23/2024 10:20 AM EDT Office Visit [facility] [address] [facility] [id number] Betsy Goodwin PA [address] [place] [address] [facility] Start: 09-15-2024 End: 09-15-2025 US Pelvis US Pelvis w/ TV Imaging Routine Pelvic pain in female Expected: 09/15/2024 (Approximate), Expires: 09/15/2025 [facility] Healthcare Comment on above: Expected: 09/15/2024 (Approximate), Expires: 09/15/2025 Start: 09-15-2024 End: 09-15-2024 Patient encounter procedure 09/15/2024 11:40 AM EDT Office Visit [facility] [address] [place] [address] Edward Campuzano, [address] [place] [address] Arrived [facility] Comment on above: Arrived Start: 05-28-2024 End: 05-28-2024 Patient encounter procedure 05/28/2024 2:50 PM EST Office Visit [facility] [address] [place] [address] Betsy Goodwin, PA [address] [place] [address] Arrived [facility] Comment on above: Arrived Start: 04-21-2024 End: 04-21-2024 Patient encounter procedure 04/21/2024 1:50 PM EST Office Visit [facility] [address] [place] [phone] Edward Campuzano, DO [address] [place] [address] [facility] Start: 04-16-2024 [facility] Start: 03-23-2024 End: 03-23-2024 ambulatory 03/23/2024 11:30 AM EDT Visit [facility] [address] [place] [address] Betsy Goodwin, PA [address] [place] [address] [facility] Start: 03-10-2024 End: 03-10-2024 Patient encounter procedure 03/10/2024 7:30 AM EDT Procedure Visit [facility] Janie Theodore, DO [address] [place] [phone] [facility] Start: 03-02-2024 End: 03-02-2024 Patient encounter procedure 03/02/2024 10:15 AM EDT Office Visit [facility] [address] [place] [address] Ria Janie, DO [address] [place] [address] Arrived [facility] Comment on above: Arrived Start: 02-16-2024 Influenza vaccination [facility] Start: 12-05-2023 End: 12-05-2023 Telemedicine consultation with patient 12/05/2023 3:00 PM EDT Telemedicine [facility] [address] [place] [address] [facility] [address] [facility] [place] [address] [facility] Start: 11-07-2023 End: 11-07-2023 Patient encounter procedure [facility] Start: 08-19-2023 End: 08-19-2023 Patient encounter procedure 08/19/2023 11:10 AM EST Routine [facility] [address] [facility] [place] [phone] Edward Campuzano DO [address] [place] [address] [facility] Start: 07-19-2023 End: 07-19-2024 ABO/Rh ABO/Rh Lab Routine Missed menses Expected: 07/19/2023 (Approximate), Expires: 07/19/2024 [facility] Healthcare Comment on above: Expected: 07/19/2023 [...] vaccinatio n given Sequential Influenza Vaccine (#1) [facility] Start: 08-31-2015 DTaP,Tdap and Td Vaccines (1 - Tdap) DTaP,Tdap and Td Vaccines (1 - Tdap) [facility] Start: 2014 Adult BMI Screening Adult BMI Screen ing [facility] Start: 2014 Hepatitis C antibody , confirmatory test Hepatitis C Screening [facility] Start: 08-31-2011 HIV screening HIV Screening [facility] Start: 2008 Depression Screening Depression Scre ening [facility] Start: 2008 Tobacco Screening Tobacco Screening [facility] Start: 08-31-2007 Vaccination for [place] papillomavirus HPV Vaccines (1 - 2-dose series) [facility] [facility] Start: 08-31-1999 History and physical examination, annual for health maintenance Wellness Visit [facility] Start: 1996 Screening for Chlamy tristan trachomatis Chlamydia Screening [facility] Start: 1996 Screening for malign ant neoplasm of cervix Pap Smear [facility] Start: 1996 Tetanus vaccination Tetanus: Every [address] [facility] Bacteria identified in Urine by Culture Urine culture Microbiology Routine Missed menses Ordered: 07/19/2023 [facility] Comment on above: Ordered: 07/19/2023 Bacteria identified in Urine by Culture Urine culture Microbiology Routine Yeast infection Ordered: 05/28/2024 [facility] Work Phone: Comment on above: Ordered: 05/28/2024 CBC W Auto Different ial panel - Blood CBC and differential Lab Routine Missed menses Ordered: 07/19/2023 [facility] Comment on above: Ordered: 07/19/2023 CHLAMYDIA TRACHOMATI S (GENITO/STI) CHLAMYDIA TRACHOMATIS (GENITO/STI) Lab Routine Yeast infection Ordered: 05/28/2024 [facility] Comment on above: Ordered: 05/28/2024 CHLAMYDIA TRACHOMATI S (GENITO/STI) CHLAMYDIA TRACHOMATIS (GENITO/STI) Lab Routine Pelvic pain in female Exposure to STD Vaginal discharge Ordered: 09/15/2024 [facility] Comment on above: Ordered: 09/15/2024 Cytology Cervical or vaginal smear or scraping study Pap Smear Pathology and Cytology Routine Well woman exam with routine gynecological exam Ordered: 10/19/2024 [facility] Work Phone: Comment on above: Ordered: 10/19/2024 Hemoglobin A1c measurement Hemoglobin A1c Lab Routine Missed menses Ordered: 07/19/2023 [facility] Comment on above: Ordered: 07/19/2023 Hepatitis B virus surface Ag [Presence] in Serum or Plasma by Immunoassay Hepatitis B surface antigen Lab Routine Missed menses Ordered: 07/19/2023 [facility] Comment on above: Ordered: 07/19/2023 Hepatitis C virus Ab [Presence] in Serum or Plasma by Immunoassay Hepatitis C antibody Lab Routine Missed menses Ordered: 07/19/2023 [facility] Comment on above: Ordered: 07/19/2023 HIV-1/HIV-2 antigen/antibody combination immunoassay HIV-1 and HIV-2 antibodies Lab Routine Missed menses Ordered: 07/19/2023 [facility] Comment on above: Ordered: 07/19/2023 Homogenous nuclear A b pattern [Titer] in Serum [facility] Neisseria gonorrhoea e DNA [Presence] in Unspecified specimen by JONATAN with probe detection Neisseria gonorrhea DNA probe, direct Lab Routine Yeast infection Ordered: 05/28/2024 [facility] Comment on above: Ordered: 05/28/2024 Neisseria gonorrhoea e DNA [Presence] in Unspecified specimen by JONATAN with probe detection Neisseria gonorrhea DNA probe, direct Lab Routine Pelvic pain in female Exposure to STD Vaginal discharge Ordered: 09/15/2024 [facility] Comment on above: Ordered: 09/15/2024 Nuclear Ab [Titer] i n Serum [facility] Reagin Ab [Presence] in Serum by RPR RPR Lab Routine Missed menses Ordered: 07/19/2023 [facility] Comment on above: Ordered: 07/19/2023 Rubella antibody, IgG Rubella an tibody, IgG Lab Routine Missed menses Ordered: 07/19/2023 [facility] Comment on above: Ordered: 07/19/2023 SURESWAB(R) ADVANCED VAGINITIS PLUS, TMA SURESWAB(R) ADVANCED VAGINITIS PLUS, TMA Pathology and Cytology Routine Yeast infection Ordered: 05/28/2024 [facility] Comment on above: Ordered: 05/28/2024 SURESWAB(R) ADVANCED [...] 11/06/2024 Payers Date Payer Category Payer Self-pay [id number] 2022 Medicaid [id number] 2022 Private Health Insurance [facility] MEDICAID [id number] 1996 Unknown [id number] 2.16.840.1.220020.3.579.2. 903 1996 Unknown [id number] 2.16.840.1.513079.3.579.2. 593 1996 Unknown [id number] 2.16.840.1.921519.3.579.2. 593 1996 Unknown [id number] 2.16.840.1.702257.3.579.2. 593 1996 Unknown [id number] 2.16.840.1.551438.3.579.2. 593 1996 Unknown [id number] 2.16.840.1.408024.3.579.2. 593 1996 Unknown [id number] 2.16.840.1.417010.3.579.2. 593 1996 Unknown [id number] 2.16.840.1.634040.3.579.2. 593 1996 Unknown [id number] 2.16.840.1.896226.3.579.2. 593 1996 Unknown [id number] 2.16.840.1.101451.3.579.2. 593 1996 Unknown [id number] 2.16.840.1.778919.3.579.2. 593 1996 Unknown [id number] 2.16.840.1.804057.3.579.2. 593 1996 Unknown [id number] 2.16.840.1.747389.3.579.2. 593 1996 Unknown [id number] 2.16.840.1.872279.3.579.2. 593 1996 Unknown [id number] 2.16.840.1.082142.3.579.2. 593 1996 Unknown [id number] 2.16.840.1.997213.3.579.2. 593 1996 Unknown [id number] 2.16.840.1.828582.3.579.2. 593 1996 Unknown [id number] 2.16.840.1.624307.3.579.2. 593 1996 Unknown [id number] 2.16.840.1.565998.3.579.2. 593 1996 Unknown [id number] 2.16.840.1.712864.3.579.2. 593 1996 Unknown [id number] 2.16.840.1.630884.3.579.2. 593 1996 Unknown [id number] 2.16.840.1.749098.3.579.2. 593 1996 Unknown [id number] 2.16.840.1.440694.3.579.2. 1286 1996 Unknown [id number] 2.16.840.1.716502.3.579.2. 1286 1996 Unknown [id number] 2.16.840.1.542103.3.579.2. 727 1996 Unknown [id number] 2.16.840.1.568786.3.579.2. 727 1996 Unknown [id number] 2.16.840.1.219035.3.579.2. 1258 1996 Unknown [id number] 2.16.840.1.990523.3.579.2. 1258 1996 Unknown [id number] 2.16.840.1.781627.3.579.2. 1258 1996 Unknown [id number] 2.16.840.1.993308.3.579.2. 1258 1996 Unknown [id number] 2.16.840.1.677862.3.579.2. 125 1996 Unknown [id number] 2.16.840.1.109428.3.579.2. 1258 1996 Unknown [id number] 2.16.840.1.260369.3.579.2. 125 1996 Unknown [id number] 2.16.840.1.658093.3.579.2. 1258 1996 Unknown [id number] 2.16.840.1.743973.3.579.2. 1258 1996 Unknown [id number] 2.16.840.1.062010.3.579.2. 1259 1996 Unknown [id number] 2.16840.1.211952.3.579.2. 9 1996 Unknown [id number] 2.16840.1.655891.3.579.2. 1258 1996 Unknown [id number] 2.16840.1.826917.3.579.2. 1258 1996 Unknown [id number] 2.16840.1.212228.3.579.2. 1258 1996 Unknown [id number] 2.840.1.530151.3.579.2. 1258 1996 Unknown [id number] 2.840.1.407097.3.579.2. 1259 1959 Unknown [id number] 1959 Unknown [id number] Unknown COMMERCIAL COMME RCIAL MISCELLANEOUS [id number] Effective for all dates [id number] 1.2.840.189360.1.13.385.2. 7.3.650157.315 Unknown [id number] Unknown [id number] 840.1.478613.3.579.2. 531 Unknown [id number] 2840.1.519755.3.579.2. 531 Unknown [id number] 2.840.1.217346.3.579.2. 531 Social History Date Type Detail Facility Tobacco smoking stat [facility] Unknown if ever smoked [facility] Start: 1996 Sex Assigned At Not on file [facility] Start: 12-07-2022 End: 11-12-2023 Sex [facility]igned At [facility] Start: 12-07-2022 End: 10-22-2023 Tobacco smoking status [facility] Never smoked tobacco [facility] Start: 07-19-2023 End: 10-19-2024 Alcohol intake Current drinker of alcohol (finding) [facility] Start: 12-07-2022 End: 11-12-2023 History of [address] [facility] Start: 12-07-2022 Alcohol Comment 1-2 drinks less than monthly in the past year [facility] Start: 05-31-2023 [facility] Start: 1996 Sex Assigned At Female [facility] Start: 11-29-2022 Gender identity Identifies as female gender (finding) [facility] Start: 11-29-2022 Sexual orientation Heterosexual (finding) [facility] Childcare Unknown [facility] Functional Status Date Assessment Result Facility 05-07-2024 Functional Status Yes [facility] Clinical Notes 01-15-2022 to 10-19-2024 Eloisa Mondragon, GARMENT MANUFACTURING SUPERVISOR - 10/19/2024 1:00 PM Olivia Mondragon, GARMENT MANUFACTURING SUPERVISOR - 10/01/2024 10:20 AM Fatou Yoon, [facility] - 09/15/2024 11:40 AM CHANEL Peralta - [...] Procedure Laterality Date DILATION AND CURETTAGE 2018 SC TONSILLECTOMY & ADENOIDECTOMY AGE 13/> 2015 WISDOM [...] Edward Campuzano DO documented in this encounter [facility] 10-01-2024 History of Present illness Narrative Reason [...] Procedure Laterality Date DILATION AND CURETTAGE 2018 SC TONSILLECTOMY & ADENOIDECTOMY AGE 13/> 2015 WISDOM [...] nursing note reviewed. Exam conducted with a operations intern present. Vitals: Estimated body mass index is [...] weekly for 3-6 months. Medications sent to [facility] in [place] and pharmacy note added that if patient needs medication further than the first 3 months then more refills will be sent as 3 month supply has currently been sent. Patient to ensure she is scheduled for her annual appointment prior to leaving office today. Documented by Eloisa Mondragon LPN on behalf of: Edward Campuzano DO documented in this encounter [facility] 09-15-2024 History of Present illness Narrative Reason [...] Procedure Laterality Date DILATION AND CURETTAGE 2018 SC TONSILLECTOMY & ADENOIDECTOMY AGE 13/> 2015 WISDOM [...] nursing note reviewed. Exam conducted with a operations intern present. Vitals: Estimated body mass index is [...] Edward Campuzano DO documented in this encounter [facility] 05-28-2024 History of Present illness Narrative Reason [...] Procedure Laterality Date DILATION AND CURETTAGE 2018 SC TONSILLECTOMY & ADENOIDECTOMY AGE 13/> 2014 WISDOM [...] nursing note reviewed. Exam conducted with a operations intern present. Vitals: Estimated body mass index is 32.62 kg/m as calculated from the following: Height as of 03/02/24: 5' 3 . Weight as of 04/21/24: 184 lb 1.9 oz. BP: No LMP recorded. ASSESSMENT & PLAN Patient presents for vaginal discharge. Patient voiced that she has a alturas green/slime discharge on/off since delivery. Patient voiced this happens with wiping. Obtained vaginal cultures without difficulty and urine will also be sent out for culture. Terazol 7 sent to patients pharmacy to be used internally and externally. Patient will await results for further treatment if needed. Documented by Eloisa Mondragon LPN on behalf of: CHANEL Mims documented in this encounter [facility] 05-07-2024 Hospital Discharge instructions Patient Education 05/07/2024 [...] provider. Document Revised: 01/01/2023 Document Reviewed: 01/01/2023 [facility] Patient Education 2023 [employer]. Follow Up Care 04/24/2024 09:40:34 With:ZEYAD LEO, LEYDI Londono, URL Address: [address] [facility] [place] [address] Business (1) When: only if needed [facility] 05-07-2024 Note Patient Education Caregiving Antibiotic Medicine, [...] Diagnosis Date 6 weeks follow-up Acute depression ([facility]) BMI 30.0-30.9,adult Breast lump on right side at 7 o'clock position Fibromyalgia Gallstones Genital herpes Hip pain, right Insomnia, idiopathic Miscarriage 2018 Spondyloarthropathy HISTORY PAST MEDICAL HISTORY SOCIAL HISTORY Past Medical History: Diagnosis Date 6 weeks follow-up Acute depression ([facility]) BMI 30.0-30.9,adult Breast lump on right [...] Procedure Laterality Date DILATION AND CURETTAGE 2018 SC TONSILLECTOMY & ADENOIDECTOMY AGE 13/> 2015 WISDOM [...] Edward Campuzano DO documented in this encounter [facility] 03-23-2024 History of Present illness Narrative Reason [...] Procedure Laterality Date DILATION AND CURETTAGE 2018 SC TONSILLECTOMY & ADENOIDECTOMY AGE 13/> 2015 WISDOM [...] of: CHANEL Mims documented in this encounter [facility] 03-02-2024 History of Present illness Narrative General [...] time. She states that she was at [facility] yesterday due to the pain and [...] Procedure Laterality Date DILATION AND CURETTAGE 2018 SC TONSILLECTOMY & ADENOIDECTOMY AGE 132014 WISDOM TOOTH [...] Procedure Laterality Date DILATION AND CURETTAGE 2018 SC TONSILLECTOMY & ADENOIDECTOMY AGE 122014 WISDOM TOOTH EXTRACTION Tobacco Use: Unknown (11/07/2023) Received from [employer] Patient History Smoking Tobacco Use: Never Smokeless [...] Milka Theodore DO documented in this encounter [facility] 11-20-2023 Miscellaneous Notes Spoke with michelle and fern (spouse) about process for carrier screening for FOB. Both agreeable. Michelle was able to send copy of fern's insurance for the carrier order to be placed. Lexi Caballero aware of plan. Patient to see Lexi on 12/04 documented in this encounter [facility] [employer] 11-20-2023 Telephone encounter Note Spoke with michelle and fern (spouse) about process for carrier screening for FOB. Both agreeable. Michelle was able to send copy of fern's insurance for the carrier order to be placed. Lexi Caballero aware of plan. Patient to see Lexi on 12/04 [facility] 11-20-2023 Miscellaneous Notes Images from the original [...] prior to that documented in this encounter [facility] 11-20-2023 Telephone encounter Note Images from the [...] arrange for partner screening prior to that [facility] 11-07-2023 History of Present illness Narrative [facility] Maternal- Medicine Consult Note Reason For Consult: [...] autism FOB paternal aunt paternal grandfather ? Wyqzmkmx-cix-xjbtr syndrome Denies smoking, alcohol or other substance [...] regardin. 24 weeks gestation of - PNV no.[id number] 400 mcg-35 mg- 25 mg-5 mg tablet,chewable; Take 2 gummies daily during the Dispense: 60 tablet; Refill: 6 - Unlisted Lab Test; Future 2. Single umbilical artery - PNV no.[id number]-[id number] 400 mcg-35 mg- 25 mg-5 mg tablet,chewable; [...] is a concern for a history of Bcultfzf-mzi-ykosd syndrome. This can be an autosomal dominant condition. She tells me that the father of the baby does not have the condition however he has not also been tested. Bwlzeekz-lws-zovir syndrome can present with a variable degree [...] Please monitor patient mood Please notify the technical support internship about the family history. I also recommended to the patient to notify the technical support internship about her other children so they can be examined and further tested if indicated Plan reviewed with patient. She vocalized understanding all questions answered. The patient is to continue with routine care in your office Thank you for allowing me to participate in her care. Please contact me if you have any concerns. Mitul Rdz MD, FACOG (she/hers) Maternal- Medicine [facility] [address] [place] [address] [facility], the CDC, and other organizations representing maternal and public health professionals recommend that , , and lactating people and those considering receive the COVID-19 vaccination. Vaccination is the best method to reduce maternal and complications of SARS-CoV-2 infection. This document was created with [employer] technology. Though I make every effort to review the dictation as it is transcribed, on occasion the spoken word can be misinterpreted by the technology leading to inappropriate words, phrases, or sentences. This note is addressed to the requesting provider as a consultation for clinical guidance. Specific medical abbreviations are occasionally used and those are generally approved by the [place]?Board of?Obstetrics and?Gynecology?as well as?Trace s abbreviations. The above plan of care was based solely on the diagnoses for which a consultation was requested. ?More frequent testing may be indicated based on her other medical/obstetrical conditions. The management of other or medical conditions is beyond the scope of requested consultation and will continue to be followed by the primary element burner or primary care provider. Note to patient: [...] yes Have you been seen here at [facility] in a previous ? no Recent ER visits or hospitalizations? Patient was seen on Saturday or Saturday for consistent contractions that have since resolved. Patient was told there were no changes to the cervix. Bring blood sugar log or meter with you today? (Please bring them with you for every visit at [facility]) Traveled outside the country in the past 6 month no Any concerns that you would like me to mention to the provider today? no Blood drawn for carrier screening testing. Patient tolerated well. Specimen sent to lab documented in this encounter [facility] 07-19-2023 History of Present illness Narrative Reason [...] Procedure Laterality Date DILATION AND CURETTAGE 2018 SC TONSILLECTOMY & ADENOIDECTOMY AGE 12/2014 WISDOM TOOTH [...] sent for nausea to pharmacy. Pt desires [address] and understands to have it done at 10 weeks along w/her labs. Follow Up: Patient is to have labs drawn at directed and return to office for initial OB appointment with provider. Patient may call office as needed with any concerns or questions. Nurse Visit Completed by: Cori Daniel MA documented in this encounter [facility] 01-16-2022 Note OB ultrasound for bi ophysical [...] by: Cecelia FOOTE Date: 2022-01-16 21:33 [facility] 01-16-2022 Note OB ultrasound for bi [...] by: Cecelia FOOTE Date: 2022-01-16 21:33 [facility] 01-15-2022 Note PROCEDURE: US KIDNEY S, [...] by: IGOR DIAZ Date: 2022-01-15 10:10 [facility] Evaluation + Plan note No data available for this section [facility] Evaluation note Diagnosis Missed menses Nausea Nausea alone documented [facility] this [facility] Healthcare[facility] noteNo assessment information [facility] Work Phone: Evaluation note* Diagnosis 6 weeks follow-up documented in this encounter 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 Circumvallate placenta during in second trimester, antepartum Family history of cystic fibrosis Family history of other endocrine and metabolic diseases documented [facility]* Diagnosis Pelvic pain in female Unspecified symptom associated with female genital organs Exposure to STD Vaginal discharge Leukorrhea, not specified as infective documented in this encounter [facility] HealthcareEvaluation note* Diagnosis Vaginal discharge Leukorrhea, not specified as infective BV (bacterial vaginosis) Unspecified vaginitis and vulvovaginitis documented in this encounter [facility] HealthcareEvaluation note* Diagnosis Well woman exam with routine gynecological exam Routine gynecological examination documented in this encounter [facility]ospital Discharge instructions No data available for this section [facility] filedocumented in this encounter [facility] SystemInstructionsNot on filedocumented in this encounter [facility]* Attachments The following attachments cannot be sent through Care Everywhere. 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 Advance Directives and Livin g Will 03/05/2020 2:18 PM Advance Directive Response Recorded Date/ Time Advance Directives No February 09, 2017 9:35am Assessments Diagnosis Chronic low back pain, unspecified back pain laterality, unspecified whether sciatica present Additional Source Comments INFORMATION SOURCE (unrecogn ized section and content) DATE CREATED AUTHOR 11/08/2018 [facility] DATE CREATED AUTHOR AUTHOR'S ORGANIZ ATION 03/21/2020 [facility] DATE CREATED AUTHOR AUTHOR'S ORGANIZ ATION 08/04/2022 [facility] DATE CREATED AUTHOR AUTHOR'S ORGANIZ ATION 11/09/2023 [facility] DATE CREATED AUTHOR AUTHOR'S ORGANIZ ATION 04/27/2024 [facility] DATE CREATED AUTHOR AUTHOR'S ORGANIZ ATION 05/10/2024 [facility] DATE CREATED AUTHOR AUTHOR'S ORGANIZ ATION 10/22/2024 [facility] dical Specialists EPIC Reason [...] time. She states that she was at [facility] yesterday due to the pain and [...] March 10, 2024 End: March 10, 2024 [employer]oom Control Chain Builder Relationship Specialty Start Date End Date Raudel Osborne MD [address] [place] [address] PCP - General Family Medicine 03/02/24 Team Status: Inactive Member Role Status Dates Igor Becerra MD Attending Provider Active St art: April 16, 2024 End: April 16, 2024 Loom Control Chain Builder Relationship Specialty Start Date End Date Raudel Osborne MD [address] [place] [address] PCP - General Family Medicine 03/02/24 Loom Control Chain Builder Relationship Specialty Start Date End Date Raudel Osborne MD [address] [place] [facility] [address] PCP - General Family Medicine 03/02/24 Edward Campuzano DO [facility] Susanne Patino [place] [address] PCP - [facility] 03/17/24 Loom Control Chain Builder Relationship Specialty Start Date End Date Raudel Osborne MD [address] [place] [facility] [address] PCP - [facility] 03/02/24 Loom Control Chain Builder Relationship Specialty Start Date End Date Raudel Osborne MD [address] [place] [facility] [address] PCP - General [facility] 03/02/24 Loom Control Chain Builder Relationship Specialty Start Date End Date Raudel Osborne MD [address] [place] [facility] [address] PCP - General Family Medicine 03/02/24 Edward Campuzano DO [facility] Susanne Patino [facility] [place] [address] PCP - [facility] 03/17/24 Loom Control Chain Builder Relationship Specialty Start Date End Date Raudel Osborne MD [address] [place] [facility] [address] PCP - General Family Medicine 03/02/24 Edward Campuzano DO [facility] Susanne Patino [facility] [place] [address] PCP - [facility] 03/17/24 Loom Control Chain Builder Relationship Specialty Start Date End Date Raudel Osborne MD [address] [place] [facility] [place] [address] PCP - General Family Medicine 03/02/24 Edward Campuzano DO [address] [place], [place] [address] [facility] PCP - [facility] 03/17/24 Loom Control Chain Builder Relationship Specialty Start Date End Date Raudel Osborne MD [address] [place] [address] PCP - [facility] 03/02/24 Loom Control Chain Builder Relationship Specialty Start Date End Date Raudel Osborne MD [address] [facility] [address] PCP - General [facility] 03/02/24 Edward Campuzano DO [address] [place], [place] [address]spring Patino Jonathan [place] [id number] PCP - [facility] 03/17/24 Loom Control Chain Builder Relationship Specialty Start Date End Date Raudel Osborne MD [address] [place] [address] PCP - General Family Medicine 03/02/24 Edward Campuzano DO [facility] Susanne Patino [facility] [place] [address] PCP - [facility] 03/17/24 Loom Control Chain Builder Relationship Specialty Start Date End Date Raudel Osborne MD [address] [facility] [place] [address] PCP - General Family [facility] 03/02/24 Edward Campuzano DO [address] [place] [address] PCP - [facility] 03/17/24 Loom Control Chain Builder Relationship Specialty Start Date End Date Raudel Osborne MD PCP - [facility] 03/02/24 Edward Campuzano DO [address] [place] [address] PCP - [facility] 03/17/24 Loom Control Chain Builder Relationship Specialty Start Date End Date Raudel Osborne MD PCP - [facility] 03/02/24 Edward Campuzano DO [address] [place] [address] [facility] - [facility] 03/17/24 Goals (unrecognized section and content) Goals [...] BE BASED ON THE PRIMARY CLINICAL RECORDS. [facility] [employer] [facility]. provides no warranty or guarantee of the accuracy or completeness of information in this document.
--- NOTE | 2024-11-15 19:43 | ED.BACK1 ---
HPI HPI - Back Pain/Injury General Chief Complaint: Back Pain/Injury Stated Complaint: back pain Time Seen by Provider: 11/15/24 19:39 Source: patient Mode of arrival: walk-in Limitations: no limitations History of Present Illness HPI Narrative: patient presents complaining of back pain. States xray ordered about one week ago for scoliosis. 3 days ago increased pain of her back. Took Tylenol without relief. no fever or injury. No radicular symptoms or extremity involvement. States pain currently 11/24. She is breast feeding. history of fibromyalgia Related Data Home Medications ?Medication ?Instructions ?Recorded ?Confirmed valacyclovir 500 mg tablet 500 mg PO DAILY 03/01/24 03/10/24 mv-mn 110-FA 180 mcg-om3 35 mg-dha 2 tab PO DAILY 03/04/24 03/10/24 25 mg-epa 5 mg-fish oil chew tablet ( Gummies (zinc chelate)) Previous Rx's ?Medication ?Instructions ?Recorded phenylephrine 0.25 %-mineral oil 1 applic IN BID PRN rectal 02/08/24 14 %-petrolatm 74.9 % rectal discomfort 14 days #28 grams ointment (Preparation H) cyclobenzaprine 5 mg tablet 5 mg PO BID PRN muscle spasm #10 03/10/24 tabs docusate sodium 100 mg capsule 100 mg PO BID 10 days #20 caps 03/10/24 (Colace) ondansetron 4 mg disintegrating 4 mg PO Q8H 5 days #15 tabs 03/10/24 tablet oxycodone-acetaminophen 5 mg-325 1 tab PO Q4H PRN abd pain 3 days 03/10/24 mg tablet (Percocet) #10 tabs Allergies Allergy/AdvReac Type Severity Reaction Status Date / Time adhesive Allergy Rash Verified 11/15/24 19:42 Opioid HPI Opioid Management Most Recent Opioid Data: Last Pain Scale 6 Today, 20:15 Last MAR Pain Assessment Today, 20:15 Ur Phencyclidine Scrn, (NEGATIVE) Negative 02/06/24, 05:00 Review of Systems ROS Status of ROS 10 or more systems reviewed and unremarkable except as noted in history and below PFSH PFS Medical History (Updated 11/15/24 @ 20:58 by Jostin Marshall MD) Genital herpes ?A60.00 - Herpesviral infection of urogenital system, unspecified (ICD-10) Fibromyalgia ?M79.7 - Fibromyalgia (ICD-10) Anemia ?D64.9 - Anemia, unspecified (ICD-10) Depression ?F32.A - Depression, unspecified (ICD-10) Panic attacks ?F41.0 - Panic disorder [episodic paroxysmal anxiety] (ICD-10) Anxiety ?F41.9 - Anxiety disorder, unspecified (ICD-10) Lactating mother ?Z39.1 - Encounter for care and examination of lactating mother (ICD-10) COVID-19 ?U07.1 - COVID-19 (ICD-10) Cholelithiasis ?K80.20 - Calculus of gallbladder without cholecystitis without obstruction (ICD-10) Surgical History (Updated 03/04/24 @ 12:44 by Magy Trinidad NP) History of wisdom tooth extraction ?K08.409 - Partial loss of teeth, unspecified cause, unspecified class (ICD-10) History of tonsillectomy ?Z90.89 - Acquired absence of other organs (ICD-10) History of dilation and curettage ?Z98.890 - Other specified postprocedural states (ICD-10) Family History (Updated 03/04/24 @ 12:44 by Magy Trinidad NP) Other Cancer Family history of diabetes mellitus Family history of hypertension Family history of myocardial infarction Social History (Updated 03/10/24 @ 07:18 by America Mansfield RN) Within the past year, how often did you have a drink containing alcohol: monthly or less Smoking status: Never smoker Second hand tobacco smoke exposure: Yes Non-prescribed substance use: denies use 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 Highest level of school completed/degree received: Associate degree: occupational, technical, vocational program Little interest or pleasure in doing things: not at all Feeling down, depressed, or hopeless: not at all Exam Constitutional Vital Signs, click to edit/add: Last Vital Signs Temp 98.5 F 11/15/24 19:35 Pulse 84 11/15/24 19:35 Resp 16 11/15/24 19:35 BP 169/82 H 11/15/24 19:35 Pulse Ox 98 11/15/24 19:35 O2 Del Method Nasal Cannula 11/15/24 19:35 Common normals: no apparent distress, average body habitus, oriented x3, no limitations, healthy appearing, alert and well nourished [facility] Common normals: normocephalic and head/scalp atraumatic Eye Common normals: PERRL, EOMs intact bilaterally and conjunctivae normal Neck & C-Spine Common normals: full ROM Respiratory Common normals: normal respiratory effort, no retractions, no use of accessory muscles and clear to auscultation bilaterally Cardio Common normals: regular rate, regular rhythm, S1 normal heart sound and S2 normal heart sound Extremity Common normals: normal to inspection and full ROM Neuro Common normals: oriented x3, CN's II-XII intact bilaterally and moves all extremities Psych Appearance: grossly normal Course Vital Signs Vital signs: Vital Signs Temperature 98.5 F 11/15/24 19:35 Pulse Rate 84 11/15/24 19:35 Respiratory Rate 16 11/15/24 19:35 Blood Pressure 169/82 H 11/15/24 19:35 Pulse Oximetry 98 11/15/24 19:35 Oxygen Delivery Method Nasal Cannula 11/15/24 19:35 Temperature 98.5 F 11/15/24 19:35 Pulse Rate 84 11/15/24 19:35 Respiratory Rate 16 11/15/24 19:35 Blood Pressure 169/82 H 11/15/24 19:35 Pulse Oximetry 98 11/15/24 19:35 Oxygen Delivery Method Nasal Cannula 11/15/24 19:35 MDM - Back Pain/Injury MDM Narrative Medical decision making narrative: patient presents complaining of back pain. History of fibromyalgia and recent diagnosis of scoliosis. Exam of her back with nonspecific tenderness of her T-L spine. No significant curvature of her back. No radicular symptoms. labs with infected urine. Patient advised of the working diagnosis of UTI and muscular skeletal back pain. Given dose of motrin and bactrim ds and discharged to follow up with her doctor Lab Data Labs: Lab Results 11/15/24 11/15/24 Range/Units 19:46 20:08 WBC 9.1 (4.0-11.0) 10^3/uL RBC 4.35 (4.20-5.40) 10^6/uL Hgb 12.6 (12.0-16.0) g/dL Hct 38.5 (36.0-48.0) % MCV 88.5 (81.0-99.0) fL MCH 29.0 (26.7-34.0) pg MCHC 32.7 (29.9-35.2) g/dL RDW 13.9 (11.0-15.0) % Plt Count 307 (150-450) 10^3/uL MPV 9.9 (9.5-13.5) fL Neut % (Auto) 50.3 (43.0-75.0) % Lymph % (Auto) 35.8 (20.5-60.0) % [place] % (Auto) 8.2 (1.7-12.0) % Eos % (Auto) 3.9 (0.9-7.0) % Baso % (Auto) 0.9 (0.2-2.0) % Neut # (Auto) 4.6 (1.4-6.5) 10^3/uL Lymph # (Auto) 3.2 (1.2-3.8) 10^3/uL [place] # (Auto) 0.7 (0.3-0.8) 10^3/uL Eos # (Auto) 0.4 (0.0-0.7) 10^3/uL Baso # (Auto) 0.1 (0.0-0.1) 10^3/uL Abs Immat Gran (auto) 0.08 H (0.00-0.03) 10^3/uL Imm/Tot Granulo (auto) 0.9 H (0.0-0.5) % Sodium 144 (136-145) mmol/L Potassium 3.9 (3.5-5.1) mmol/L Chloride 105 (98-107) mmol/L Carbon Dioxide 30.9 (21.0-32.0) mmol/L Anion Gap 12.0 BUN 11.0 (7.0-18.0) mg/dL Creatinine 0.63 (0.55-1.02) mg/dL Est GFR ( Amer) >60 (>=60 mL/min/1.73m^2) Est GFR (Non-Af Amer) >60 (>=60 mL/min/1.73m^2) BUN/Creatinine Ratio 17.5 Glucose 102 (74-106) mg/dL Calcium 9.2 (8.5-10.1) mg/dL Total Bilirubin 0.6 (0.2-1.0) mg/dL AST 31 (15-37) U/L ALT 49 (14-59) U/L Alkaline Phosphatase 136 H (46-116) U/L C-Reactive Protein 0.51 H (<=0.50) mg/dL Total Protein 7.2 (6.4-8.2) g/dL Albumin 3.6 (3.4-5.0) g/dL Globulin 3.6 g/dL Albumin/Globulin Ratio 1.0 Urine Color Yellow (YELLOW) Urine Clarity Clear (CLEAR) Urine pH 6.0 (5.0-9.0) Ur Specific [place] 1.025 (1.005-1.025) Urine Protein Negative (NEG/TRACE) mg/dL Urine Glucose (UA) Negative (NEGATIVE) mg/dL Urine Ketones Negative (NEGATIVE) mg/dL Urine Occult Blood Trace-i (NEGATIVE) Urine Nitrite Negative (NEGATIVE) Urine Bilirubin Negative (NEGATIVE) Urine Urobilinogen 0.2 (0.2-1.0) EU/dL Ur Leukocyte Esterase Moderate A (NEGATIVE) Urine RBC 0-2 (0-2) #/HPF Urine WBC 5-10 A (NONE SEEN) #/HPF Ur Squamous Epith Cells Few A (NONE/RARE) #/LPF Urine Crystals None seen (None Seen) #/HPF Urine Bacteria Small A (NONE SEEN) #/HPF Urine Casts None seen (NONE SEEN) #/LPF Urine Mucus None seen (NONE SEEN) Ur Culture Indicated[place] [place] HCG, Qual Negative (NEGATIVE) Discharge Plan Discharge Chief Complaint: Back Pain/Injury Clinical Impression: Back pain, UTI (urinary tract infection) Patient Disposition: Home, Self-Care Prescriptions / Home Meds: No Action valacyclovir 500 mg tablet 500 mg PO DAILY Gummies(zinc chelate) 180 mcg-35 mg- 25 mg-5 mg tablet,chewable 2 tab PO DAILY oxycodone-acetaminophen [Percocet] 5-325 mg tablet 1 tab PO Q4H PRN (Reason: abd pain) 3 Days Qty: 10 0RF docusate sodium [Colace] 100 mg capsule 100 mg PO BID 10 Days Qty: 20 0RF ondansetron 4 mg tablet,disintegrating 4 mg PO Q8H 5 Days Qty: 15 0RF cyclobenzaprine 5 mg tablet 5 mg PO BID PRN (Reason: muscle spasm) Qty: 10 0RF Preparation H 0.25-14-74.9 % ointment 1 applic IN BID PRN (Reason: rectal discomfort) 14 Days Qty: 28 2RF Print Language: Slovenian Instructions: Urinary Tract Infection in Women (ED), Back Pain (ED) Additional Instructions: drink plenty of fluids and follow up with your doctor in 2-3 days for recheck Referrals: DUARTE VALDERRAMA [Primary Care Provider, Family Practice] - 1 week
[2024-11-15 19:56] LABS: HCG Qualitative Urine* NEGATIVE (NEGATIVE); Internal Control Within Normal Limits
[2024-11-15 19:57] LABS: Bilirubin Urine NEGATIVE (NEGATIVE); Blood Urine TRACE-I (NEGATIVE); Clarity Urine CLEAR (CLEAR); Color Urine YELLOW (YELLOW); Glucose Urine UA NEGATIVE (NEGATIVE); Ketones Urine NEGATIVE (NEGATIVE); Leukocyte Esterase Urine MODERATE (NEGATIVE); Nitrite Urine NEGATIVE (NEGATIVE); Protein Urine NEGATIVE (NEG/TRACE); Specific Gravity Urine 1.025 (1.005-1.025); Urobilinogen Urine 0.2 EU/dL (0.2-1.0)
[2024-11-15 19:58] LABS: Urine Microscopic Indicated YES
[2024-11-15 20:04] LABS: Bacteria Urine SMALL #/HPF (NONE SEEN); Cast Seen? NONE SEEN #/LPF (NONE SEEN); Crystals Seen? None Seen #/HPF (None Seen); Mucus Urine NONE SEEN (NONE SEEN); RBC Urine 0-2 #/HPF (0-2); Squamous Epithelial Cell Urine FEW #/LPF (NONE/RARE); Urine Culture Indicated YES-FRMC
[2024-11-15 20:15] LABS: Basophils Absolute Auto 0.1 10^3/uL (0.0-0.1); Basophils Percent Auto 0.9 % (0.2-2.0); Eosinophils Absolute Auto 0.4 10^3/uL (0.0-0.7); Eosinophils Percent Auto 3.9 % (0.9-7.0); Hematocrit 38.5 % (36.0-48.0); Hemoglobin 12.6 g/dL (12.0-16.0); Immature Granulocytes Abs Auto 0.08 10^3/uL (0.00-0.03); Immature Granulocytes Pct Auto 0.9 % (0.0-0.5); Lymphocytes Absolute Auto 3.2 10^3/uL (1.2-3.8); Lymphocytes Percent Auto 35.8 % (20.5-60.0); Mean Corpuscular HGB Conc 32.7 g/dL (29.9-35.2); Mean Corpuscular Volume 88.5 fL (81.0-99.0); Mean Platelet Volume 9.9 fL (9.5-13.5); Monocytes Absolute Auto 0.7 10^3/uL (0.3-0.8); Monocytes Percent Auto 8.2 % (1.7-12.0); Neutrophils Absolute Auto 4.6 10^3/uL (1.4-6.5); Neutrophils Percent Auto 50.3 % (43.0-75.0); Platelet Count 307 10^3/uL (150-450); Red Blood Count 4.35 10^6/uL (4.20-5.40); Red Cell Distribution Width 13.9 % (11.0-15.0); White Blood Count 9.1 10^3/uL (4.0-11.0)
[2024-11-15] MEDS: IBUPROFEN 400 MG TABLET 800 MG PO (20:15)
[2024-11-15 20:32] LABS: Alanine Aminotransferase 49 U/L (14-59); Albumin Level 3.6 g/dL (3.4-5.0); Alkaline Phosphatase 136 U/L (46-116); Aspartate Amino Transferase 31 U/L (15-37); BUN Creatinine Ratio 17.5; Bilirubin Total 0.6 mg/dL (0.2-1.0); C Reactive Protein 0.51 mg/dL (<=0.50); Calcium 9.2 mg/dL (8.5-10.1); Carbon Dioxide 30.9 mmol/L (21.0-32.0); Chloride 105 mmol/L (98-107); Estimated GFR (African America >60 (>=60 mL/min/1.73m^2); Estimated GFR (Non-African Ame >60 (>=60 mL/min/1.73m^2); Globulin 3.6 g/dL; Glucose 102 mg/dL (74-106); Potassium 3.9 mmol/L (3.5-5.1); Sodium 144 mmol/L (136-145); Total Protein 7.2 g/dL (6.4-8.2)
[2024-11-15] MEDS: SULFAMETHOXAZOLE/TRIMETHOPRIM 800-160 MG TABLET 1 TAB PO (21:06)
== END 2024-11-15 21:08 | disposition home or self-care (01) ==
PROVIDERS: Emergency Provider Internal Medicine; PCP Nurse Practitioner Family
DX: N39.0 Urinary tract infection, site not specified (principal); M54.9 Dorsalgia, unspecified; M79.7 Fibromyalgia
CPT/HCPCS: 36415; 80053; 81001; 84703; 85025; 86140; 87086; 99284

== ENCOUNTER 2024-11-18 08:50 | Outpatient (OUT) | payer OTHER, SELFPAY ==
--- NOTE | 2024-11-18 08:55 | US_ITS ---
The [address] [address] Patient Name: SANDY GODINEZ MRN: [id number] date: 1995 Sex: F Assigned Patient Location: US Current Patient Location: US Accession/Order Number: [id number] Exam Date: 11/18/2024 09:34 Report Date: 11/18/2024 09:37 At the request of: DUARTE VALDERRAMA Procedure: US renal bladder BILATERAL RENAL AND BLADDER ULTRASOUND CLINICAL HISTORY: Frequent Urinary Tract Infection COMPARISON: CT 10/27/2024 Estimation of renal size is approximately 10.2 cm on the right and 11.3 cm on the left. No shadowing calculi or hydronephrosis are identified. No renal mass lesions were imaged. There is no perinephric fluid. The liver appears slightly echogenic with respect to the kidney and this may indicate fatty infiltration. The urinary bladder is partially distended with a volume of 80 mL. No contour or intraluminal abnormalities are seen. Bilateral ureteral jets are visualized. The post void bladder residual is 5 mL. US/US renal bladder IMPRESSION: NO OBSTRUCTIVE UROPATHY. Impression dictated by: Piedad Trujillo M.D. 11/18/2024 9:37 AM Dictation Location: [place] [address] Electronically authenticated by: [id number] Y Date: 11/18/2024 09:37
== END 2024-11-18 08:51 | disposition home or self-care (01) ==
LOC: US 08:50
PROVIDERS: PCP Nurse Practitioner Family; Visit Provider Nurse Practitioner Family
DX: N39.0 Urinary tract infection, site not specified (principal)
CPT/HCPCS: 76770

== ENCOUNTER 2024-12-15 12:04 | Outpatient (OUT) | payer OTHER, SELFPAY ==
--- OUTSIDE RECORDS SUMMARY | 2017-06-24 06:15 | XMS_ITS | Continuity of Care Document ---
Author Organization [facility] Address [address] [place] [phone] Phone Care Team Providers Care Staff Counselor Name Role Phone Nas ALTON ALTON Eloisa [...] Copied on Encounter OFFICE/OUTPAT IENT VISIT, EST [facility], [address], [place], [id number] , [place] tel: [phone] [facility] Less than 8 weeks gestation of pregnancyEncounter for supervision of normal 1st , 1st trimester 8 [facility] Eloisa. [address], [place], [id number] , [place]. tel: [phone] [facility], [address] [place] [address], [id number] , [place] tel: [phone] [facility] anxiety and anger (chief complaint) [place]: (chief complaint) Encounter for test, result positiveAnxiety disorder, unspecifiedMajor depressive disorder, single episode, unspecified 8 Natan Frausto. [address] [place], [address], [place]. tel: [phone] [facility], [address] [place] [address], [id number] , [place] tel: [phone] [facility] Fibrocystic disease of breast 7 [facility] Eloisa. [address] [place] [address], [id number] , [place]. tel: [phone] PREV VISIT, EST, AGE 18-39 [facility], [address] [place] [address], [id number] , [place] tel: [phone] 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 Eloisa. [address] [place] [address], [id number] , [place]. tel: [phone] OFFICE/OUTPAT IENT VISIT, [facility], [address], [place], [id number] , [place] tel: [phone] [facility] and (chief complaint) FibromyalgiaAnxiety disorder, unspecifiedParanoia 7 Natan Frausto. [address] [place], [address], [place]. tel: [phone] Family History Family Member Type Diagnosis Age [...] disorder Payers Payer name Insurance type Covered constitution party ID Authorjo pacheco(s) [employer] Medicaid [place] [id number] Medicaid Wrap - [facility] [place] [id number] Social History Type Description Quantity Date Captured [...] her partner for 4 years. 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 Patient to call in 1 week for results Related to - STD screen Assessments Type Assessment Date assessment Less than 8 weeks gestation of weston romero assessment Encounter for superv ision of normal 1st , 1st trimester Mental Status Date Cognitive Assessment Orientation - [place] ed to time, place, person, situation. Patient Care Teams Name Effective Dates (start - stop) Status Members No Information
--- OUTSIDE RECORDS SUMMARY | 2023-12-20 09:00 | XMS_ITS ---
Author Organization [facility] Servic es Address [address] [place] [address] Care Team Providers Care Project Management Intern Name Role Phone Kylie Crum Primary Care Provider Tricia Cortes [phone] REASON FOR VISIT FILLING Encounters Encounter Location Date Provider Diagnosis [facility] [address] [place] [address] 12/20/2023 Tricia Morfin Plan Of Treatment Next Appt Details Provider Name:Kylie marcelo, 03/23/2025 11:30:00 AM, [address] [place], [address], Progress Notes * SANDY GODINEZDOB: 7 (29 yo F)Acc No.[id number]:12/20/2023 Patient: Madhu SANDY MORA Provider: Xi MORFIN DDS :1995 A ge:28 Y S ex:Female Date:12/20/2023 Address:[address] [place], [place] Pcp:Kylie Crum Subjective: * Chief Complaints: * 1 . FILLING. * Medical History: Objective: * Vitals: Assessment: Plan: * Treatment: * Images: * Electronic signature of Dee Morfin DDS on 12/15/2024 at 12:08 PM EDT Sign off status: Pending * Provider: Xi MORFIN, DDS Date: 0 12/20/2023 Generated for Nathan marques/Catrachita/Analy on: 12/15/2024 12:08 PM EDT
--- OUTSIDE RECORDS SUMMARY | 2024-03-03 06:30 | XMS_ITS ---
Author Organization [facility] Address [address] [place] [address] Care Team Providers Care Adult Secondary Education Instructor Name Role Phone Kylie Crum Primary Care Provider [phone] Juliet Maurer [phone] REASON FOR VISIT 6 MONTHS Encounters Encounter Location Date Provider Diagnosis [facility] [address] [place] [address] 03/03/2024 Juliet Wilkins Plan Of Treatment Next Appt Details Provider Name:Kylie marcelo, 03/23/2025 11:30:00 AM, [address] [place], [address], Progress Notes * SANDY GODINEZ JDOB: [birth year] (29 yo F)Acc No.[id number]:03/03/2024 Patient: Madhu JonesSANDY MENDOZA Provider: Barry Albert :1995 A ge:28 Y S ex:Female Date:03/03/2024 Address:[address] [place], [place]-[address] Pcp:Kylie Crum Subjective: * Chief Complaints: * 1 . 6 MONTHS. * Medical History: Objective: * Vitals: Assessment: Plan: * Treatment: * Images: * Electronic signature of Ellen Wilkins on 12/15/2024 at 12:07 PM EDT Sign off status: Pending * Provider: Barry Albert Date: 0 03/03/2024 Generated for Nathan marques/Catrachita/Analy on: 0 12/15/2024 12:07 PM EDT
--- OUTSIDE RECORDS SUMMARY | 2024-11-06 11:05 | XMS_ITS ---
Author Organization [facility] [place] Address [address] [place] [address] Care Team Providers Care Appeals Nurse Name Role Phone Apolinar Noemi Primary Care Provider Reason For Referral Diagnosis 1 Mild scoliosis (M41. 9) Referral Organization [facility] Referring Provider First Name Noemi Referring Provider Last Name Apolinar Referring Provider Speciality Family Med icine Referred Provider Josue Sagastume Referred Provider Specialty Orthopedic S urgery Referral Priority Routine REASON FOR VISIT xray Problems Problem Type SNOMED Code ICD Code Onset Dates Problem Status W/U Status Risk Notes Problem Scoliosis (111452613) Mild scoliosis (M41.9) Active confirmed Encounters Encounter Location Date Provider Diagnosis [facility] [address] [place] [address] 11/06/2024 Noemi Jiang Mild scoliosis M41.9 Assessments Encounter Date Diagnosis (ICD Code) Assessment Notes Treatment Notes Treatment Clinical Notes Section Notes 11/06/2024 Mild scoliosis (ICD-10 - M41.9) Plan Of Treatment Referrals Referral Date Details 11/06/2024 11/06/2024, Josue loyd Progress Notes * Domenic GODINEZDOB:1995 (29 yo F)Acc No.[id number]:11/06/2024 Patient: Domenic APARICIO :1995 A ge:29 Y S ex:Female Address:[address] [place], [address] Subjective: * Chief Complaints: * X ray * Medical History: * Surgical History: * Hospitalization/Major Diagno stic Procedure: * Medications: Objective: * Vitals: * Physical Examination: Assessment: * Assessment: 1. M ild scoliosis - M41.9 (Primary) Plan: * Treatment: * Procedure Codes: * true * Date: Generated for Thomi jerald/Catrachita/eTransmitting on: 0 12/15/2024 12:07 PM EDT Consultation Request Notes Referral Date Referring Provider Referred Provider Not es 11/06/2024 Noemi Jiang Steven
--- OUTSIDE RECORDS SUMMARY | 2024-11-10 05:00 | XMS_ITS ---
Author Organization [facility] Address [address] [place] [address] Care Team Providers Care Television Program Director Name Role Phone Kylie Crum Primary Care Provider REASON FOR VISIT FILLING Encounters Encounter Location Date Provider Diagnosis [facility] [address] [place] [address] 11/10/2024 Kylie Crum Plan Of Treatment Next Appt Details Provider Name:Kylie marcelo, 03/23/2025 11:30:00 AM, [address], [address], Progress Notes * SANDY GODINEZDOB: [birth year] (29 yo F)Acc No.[id number]:11/10/2024 Patient: Madhu SANDY MORA Provider: Andrew Crum DDS :1995 A ge:29 Y S ex:Female Date:11/10/2024 Address:[address] [facility] Subjective: * Chief Complaints: * 1 . FILLING. * Medical History: Objective: * Vitals: Assessment: Plan: * Treatment: * Images: * Electronic signature of Cecile Crum DDS on 12/15/2024 at 12:08 PM EDT Sign off status: Pending * Provider: Andrew Crum DDS Date: 11/10/2024 Generated for Nathan marques/Catrachita/Analy on: 0 12/15/2024 12:08 PM EDT
--- OUTSIDE RECORDS SUMMARY | 2024-11-16 10:00 | XMS_ITS ---
Author Organization [facility] in [place] Address [address] [place] [address] Care Team Providers Care Mushroom Sorter Grader Name Role Phone Noemi Jiang Primary Care Provider [phone] Allergies No Known Allergies REASON FOR VISIT ER Follow Up- UTI, Currently on Bactrim Medications Medication SIG (Take, Route, Frequency, Duration) Notes Start Date End Date Status Vitamin D3 50 MCG (1999) 1 capsule Or ally Once a day for 30 days 08/14/2024 Active Hyoscyamine Sulfate 0.125 MG 1-2 tabs SL SL every 4 hrs PRN abd pain 09/16/2024 Active Ondansetron 4 MG 1 tablet on the tong ue and allow to dissolve Orally qid 09/16/2024 Active Triamcinolone Acetonide 0.1 % 1 application do not rinse afterwards and avoid eating or drinking for 30 minutes Mouth/Throat Twice a day for 7 days 11/16/2024 Active Social History Tobacco Use: Social History Observation Description Date Details (start date - stop date) Never Smoker NA - NA Tobacco Use/Smoking Question Answer Notes Patient is a nonsmoker Vital Signs Weight 180 lbs 11/16/2024 Height 63 in 11/16/2024 Blood pressure systolic 112 mm Hg 11/17/19 25 Blood pressure diastolic 82 mm Hg 025 BMI 31.88 kg/m2 11/16/2024 Encounters Encounter Location Date Provider Diagnosis [facility] [address] [place] [address] 11/16/2024 Noemi Jiang Frequent UTI N39.0 ; Back pain M54.9 and Oral lesion K13.70 Assessments Encounter Date Diagnosis (ICD Code) Assessment Notes Treatment Notes Treatment Clinical Notes Section Notes 11/16/2024 Frequent UTI (ICD-10 - N39.0) 11/16/2024 Back pain (ICD-10 - M54.9) Toradol 30 IM has fu ortho on 11/16/2024 Oral lesion (ICD-10 - K13.70) Plan Of Treatment Medication Medication Name Sig Start Date Stop Date Notes Triamcinolone Acetonide 0.1 % 1 applicat ion do not rinse afterwards and avoid eating or drinking for 30 minutes Mouth/Throat Twice a day for 7 days 11/16/2024 Treatment Notes Assessment Notes Back pain Toradol 30 IM has fu ortho on Pending Test Test Name Order Date US KIDNEYS BLADDER 11/16/2024 Next Appt Details Follow Up: prn, Reason: Progress Notes * HERBERT DomenicDOB:1995 (29 yo F)Acc No.[id number]:11/16/2024 Progress Note Patient: Domenic APARICIO Provider: Grecia Jiang ([facility]), NON ACOUSTIC OPERATOR :1995 A ge:29 Y S ex:Female Date:11/16/2024 Address:[address] [place] [address], [id number] Check In:01:49 PM ESTCheck O ut:02:30 PM EST Subjective: * Chief Complaints: * 1 . ER Follow Up- UTI. 2. Currently on Bactrim. * HPI: G eneral: Patient presents to office for f/u to ER visit where she was diagnosed with a UTI and given abx and ibuprofen for the back pain to which she states is not working. She states the back pain is unrelated to the UTI. * ROS: E ENT: swollen glands or neck lumps d enies. s ore throat d enies. n maria guadalupe congestion d enies. e ar ache d enies. G eneral/Constitutional: Sweats: D enies. F atigue d enies. M alaise?denies. F atigue or Weakness d enies. F ever or Chills d enies. C ardiovascular: Lightheadedness/dizziness d enies. C hest tightness/ heavy pressure d enies. S welling of legs, ankles, or feet d enies. P alpitations d enies. R espiratory: Difficulty breathing d enies. C hest pain d enies.? M usculoskeletal: Joint pain a dmits mid back pain. B ack pain a dmits, moderate to severe,, feels medication is ineffective. W eakness of muscles d enies. ? * Active Problem List R53.83 Fatigue Modified On:01/30/2023U Status:confirmed D64.9 Anemia Modified On:01/30/2023U Status:confirmed M79.7 Fibromyalgia Modified On:01/30/2023U Status:confirmed F41.9 Anxiety and depressi on Modified On:01/30/2023 Status:confirmed K80.20 Cholelithiases Modified On:11/19/2023U Status:confirmed J32.9 Sinusitis Modified On:06/22/2024U Status:confirmed E55.9 Vitamin D deficiency Modified On:08/14/2024U Status:confirmed K76.89 Abnormal liver funct ion Modified On:10/06/2024U Status:confirmed K76.0 Fatty liver Modified On:10/08/2024U Status:confirmed K76.9 Liver lesion Modified On:10/28/2024U Status:confirmed M41.9 Mild scoliosis Modified On:11/06/2024U Status:confirmed * Medical History: A nemia, Fatigue, Anxiety and depression, Fibromyalgia. * Surgical History: T onsillectomy , D&C , [place] teeth , Gallbladder 03/10/24. * Hospitalization/Major Diagno stic Procedure: D enies Past Hospitalization. * Family History: F ather: alive, asthma, depression, bipolar. M other: alive, lymphoma, diagnosed with Other malignant neoplasm of unspecified site. B rother(s): alive, depression, bipolar. S on(s): alive. D héctor(s): alive. P aternal Grandmother: alcoholism, depression, bipolar, diagnosed with Unspecified essential hypertension, Unspecified heart disease. M aternal Grandfather: hyperlipidemia, diagnosed with Unspecified essential hypertension. M aternal Grandmother: diagnosed with Unspecified essential hypertension. 4 brother(s) . 1 son(s) , 1 daughter(s) . . * Social History: T obacco Use: T obacco Use/Smoking Grecia flores is a n onsmoker * Medications: T aking Hyoscyamine Sulfate 0.125 MG Tablet Sublingual 1-2 tabs SL SL every 4 hrs PRN abd pain , Taking Ondansetron 4 MG Tablet Disintegrating 1 tablet on the tongue and allow to dissolve Orally qid , Taking Vitamin D3 50 MCG (1999) Capsule 1 capsule Orally Once a day , Medication List reviewed and reconciled with the patient * Allergies: N .K.D.A. Objective: * Vitals: W t:180lbs, Ht: 63 in, BP:112/82mm Hg, BMI:31.88Index, Ht-cm: 160.02 cm, Wt-k.65 kg. * Examination: P hysical Exam: GENERAL: w ell developed, well nourished, in no acute distress. HEAD: n ormocephalic/atraumatic. EYES: p upils equal, round and reactive to light, conjunctivae and sclerae normal. NECK: n marleny supple, no masses or palpable cervical nodes, trachea midline, thyroid without nodules, masses, tenderness, or enlargement. CHEST: n o chest wall deformity, no chest wall tenderness.? LUNGS: n ormal respiratory effort and clear to auscultation, no wheezes, rales, or rhonchi, good air exchange. CARDIO: r egular rate and rhythm, normal S1 and S2, nor murmur, rub, or gallop. PULSES: n ormal capillary refill. MUSCULOSKELETAL: Grecia flores has a hx of diagnosed scoliosis, tenderness noted to thoracic area on palpation, no open wounds or bruising noted. No , no erythema, edema, effusion, or ecchymosis noted.. EXTREMITY: n o clubbing, cyanosis, edema, or deformity with normal ROM in both upper and lower bilateral extremities. NEUROLOGIC: g rossly normal. SKIN: n o rashes, ulcerations, or suspicious lesions. LYMPH NODES: n o cervical adenopathy, nodes normal. MENTAL STATUS: a lert and oriented x3, normal mood and affect. Assessment: * Assessment: 1. B ack pain - M54.9 (Primary) 2 . F requent UTI - N39.0 3 . O ral lesion - K13.70 Plan: * Treatment: 2. F requent UTI I maging: US KIDNEYS BLADDER 3. O ral lesion Start Triamcinolone Acetonide Paste, 0.1 %, 1 application do not rinse afterwards and avoid eating or drinking for 30 minutes, Mouth/Throat, Twice a day, 7 days, 1, Refills 0. * Follow Up: p rn * * Electronically signed by Sveta Jiang , PHAM, DIRECTOR OF EMERGENCY NURSING.NON ACOUSTIC [id number] on 11/17/2024 at 03:59 PM EDT Sign off status: Completed Visit Status: C HK (Check Out) true * Provider: Grecia Jiang ([facility]), NON ACOUSTIC OPERATOR Date: 11/16/2024 Generated for Nathan marques/Catrachita/eTransmitting on: 12/15/2024 12:06 PM EDT History and Physical Notes * HPI (History of Present Illness) Category Sub-Category Detail Notes Category Not es General Patient present s to office for f/u to ER visit where she was diagnosed with a UTI and given abx and ibuprofen for the back pain to which she states is not working. She states the back pain is unrelated to the UTI. Examination Category Sub-Category Detail Notes Category Not es Physical Exam GENERAL: well developed, well nourished, in no acute distress HEAD: normocephalic/atraum atic EYES: pupils equal, round and reactive to light, conjunctivae and sclerae normal NECK: neck supple, no mass es or palpable cervical nodes, trachea midline, thyroid without nodules, masses, tenderness, or enlargement CHEST: no chest wall deform ity, no chest wall tenderness LUNGS: normal respiratory e ffort and clear to auscultation, no wheezes, rales, or rhonchi, good air exchange CARDIO: regular rate and rhy thm, normal S1 and S2, nor murmur, rub, or gallop PULSES: normal capillary ref ill MUSCULOSKELETAL: Patient has a hx of diagnosed scoliosis, tenderness noted to thoracic area on palpation, no open wounds or bruising noted. No , no erythema, edema, effusion, or ecchymosis noted. EXTREMITY: no clubbing, cyanosi s, edema, or deformity with normal ROM in both upper and lower bilateral extremities NEUROLOGIC: grossly normal SKIN: no rashes, ulceratio ns, or suspicious lesions LYMPH NODES: no cervical adenopat hy, nodes normal MENTAL STATUS: alert and oriented x 3, normal mood and affect
--- OUTSIDE RECORDS SUMMARY | 2024-11-18 06:20 | XMS_ITS ---
Author Organization The [facility] in [place] Address [address] [place] [address] Care Team Providers Care Statistics Teacher Name Role Phone Apolinar Noemi Primary Care Provider [phone] Reason For Referral Diagnosis 1 Recurrent UTI (N39.0 ) Referral Organization [facility] Referring Provider First Name Noemi Referring Provider Last Name Apolinar Referring Provider [facility] Referred Provider Yuliana Lomeli Referred Provider Specialty Urology Referral Priority Routine REASON FOR VISIT review US Encounters Encounter Location Date Provider Diagnosis [facility] [address] [place] [address] 11/18/2024 Noemi Jiang Recurrent UTI N39.0 Assessments Encounter Date Diagnosis (ICD Code) Assessment Notes Treatment Notes Treatment Clinical Notes Section Notes 11/18/2024 Recurrent UTI (ICD-10 - N39.0) Plan Of Treatment Referrals Referral Date Details 11/18/2024 11/18/2024, Yuliana mendez Progress Notes * Domenic GODINEZDOB:1995 (29 yo F)Acc No.[id number]:11/18/2024 Patient: Domenic APARICIO :1995 A ge:29 Y S ex:Female Address:[address] [place], [address] Subjective: * Chief Complaints: * r eview US * Medical History: * Surgical History: * Hospitalization/Major Diagno stic Procedure: * Medications: Objective: * Vitals: * Physical Examination: Assessment: * Assessment: 1. R ecurrent UTI - N39.0 (Primary) Plan: * Treatment: * Procedure Codes: * true * Date: Generated for Nathan marques/Catrachita/Analy on: 0 12/15/2024 12:08 PM EDT Consultation Request Notes Referral Date Referring Provider Referred Provider Not es 11/18/2024 Noemi Jiang Kathy
--- OUTSIDE RECORDS SUMMARY | 2024-12-01 10:10 | XMS_ITS ---
Author Organization [facility] Address [address] [place] [address] Care Team Providers Care Spinning Frame Cleaner Name Role Phone Noemi Jiang Primary Care Provider Unavailjina Melida Escalera Unavailable [phone] REASON FOR VISIT SCOLI/THORACIC, Neck pain, thoracic pain, low back pain Problems Problem Type SNOMED Code ICD Code Onset Dates Problem Status W/U Status Risk Notes Problem [id number] Neck pain (M54.2) Active confirmed Problem 058519059 Fibromyalgia (M79.7) Active confirmed Encounters Encounter Location Date Provider Diagnosis [facility] [address] [place] [address] 12/01/2024 Inras HewittInras Low back pain, unspecified back pain laterality, [...] marleny and Lumbar, Reason: Progress Notes * SANDY GODINEZDOB:1995 (29 yo F)Acc No.[id number]:12/01/2024 Patient: SANDY APARICIO Provider: Zuleika French MD :1995 A ge:29 Y S ex:Female Date:12/01/2024 Address:[address] [place] [address] [place] Pcp:Noemi Jiang Subjective: * Chief Complaints: * S COLI/THORACICNeck pain, thoracic pain, low back pain * HPI: G eneral Info per Patient Report: Patient presents to the clinic today complaining [...] worst and a 5/10 on average. * Medical History: * Surgical History: * Medications: Objective: * Vitals: * Examination: G eneral examination: A wake [...] Studies: X R scoliosis survey obtained at [facility] reveals minimal lateral curvature of the thoracic [...] obtain MR imaging. Plan: * Treatment: * Procedure Codes: * Follow Up: F U 6 Weeks; HEP Neck and Lumbar Forms: * Images: * Sign off status: Completed true * Provider: Zuleika French MD Date: 0 12/01/2024 Generated for Nathan marques/Catrachita/Analy on: 0 12/15/2024 12:07 PM EDT History and Physical Notes * HPI (History of Present Illness) Category Sub-Category Detail Notes Category Not es General Info per Patient Report Patient presents to the clinic today complaining [...] its worst and a 5/10 on average Examination Category Sub-Category Detail Notes Category Not [...] Studies XR sco liosis survey obtained at [facility] reveals minimal lateral curvature of the thoracic spine with concavity to the left. This is less than 5 degrees. There is no hypermobility with sidebending. No acute chest or abnormal findings. Visualized pelvis symmetric. No vertebral abnormality identified. MRI Imaging Studies No new i maging
--- OUTSIDE RECORDS SUMMARY | 2024-12-15 12:06 | XMS_ITS | Encounter Summary ---
Author Organization [facility] Address [address] [place] [address] Care Team Providers Care Cashier Gambling Name Role Phone Raudel Osborne MD Primary Care Provider [phone] Edward Campuzano DO Unavailable Encounter Details Date Type Department Care Team (Late Contact Info) Description 12/18/2023 Abstract [facility] [address] [place] [address] Edward Campuzano DO [address] [facility] [address] [place], [place] [address] Social History Tobacco Use Types Packs/Day Years Used Date Smoking Tobacco: Never Alcohol Use Standard Drinks/Week Comments Yes 0 (1 standard drink = 0.6 oz pure alcohol) 1-2 drinks less than monthly in the past year Comments Yes Sex and Gender Information Value Date Recorded Sex Assigned at Female 11/29/2022 11:34 AM EDT Legal Sex Female 6:42 PM EDT Gender Identity Female 11/29/2022 11:34 AM EDT Sexual Orientation Straight 11/29/2022 11 :34 AM EDT documented as of this encounter Plan of Treatment Upcoming Encounters Date Type Department Care Team (Late Contact Info) Description 12/31/2024 9:30 AM EDT Office Visit [facility] [address] [facility] [place] [address] Betsy Goodwin PA [address] [facility] [place] [address] documented as of this encounter Visit Diagnoses Not on filedocumented in this encounter Care Teams Cashier Gambling Relationship Specialty Start Date End Date Raudel Osborne MD [address] [facility] [place] [address] PCP - General Family Medicine 03/02/24 Edward Campuzano DO [address] [place] [address] PCP - [facility] 03/17/24 documented as of this encounter
--- OUTSIDE RECORDS SUMMARY | 2024-12-15 12:06 | XMS_ITS | Encounter Summary ---
Author Organization [facility] Address [address] [place] [address] Care Team Providers Care Android Programmer Name Role Phone Raudel Osborne MD Primary Care Provider [phone] Edward Campuzano DO Unavailable Encounter Details Date Type Department Care Team (Late Contact Info) Description 11/28/2023 Abstract [facility] [address] [facility] [place] [address] Edward Campuzano DO [address] [facility] [address] [place], [place] [address] Social History Tobacco Use Types Packs/Day Years [...] EDT Office Visit [facility] [address] [facility] [place] [address] Betsy Goodwin PA [address] [address] documented as of this encounter Visit Diagnoses Not on filedocumented in this encounter Care Teams Android Programmer Relationship Specialty Start Date End Date Raudel Osborne MD [address] [facility] [place] [address] PCP - General Family Medicine 03/02/24 Edward Campuzano DO [address] [place] [address] PCP - [facility] 03/17/24 documented as of this encounter
--- OUTSIDE RECORDS SUMMARY | 2024-12-15 12:06 | XMS_ITS | Encounter Summary ---
Author Organization [facility] Address [address] [place] [place] [address] Care Team Providers Care Sales Representative Groceries Name Role Phone Raudel Osborne MD Primary Care Provider [phone] Jose Miguel Campuzano DO Unavailable Encounter Details Date Type Department Care Team (Late Contact Info) Description 12/05/2023 Clinisync Result Encounter [facility] External Department Unsolicited Jose Miguel Campuzano, DO [address] [facility] [address] Sukumar [place], [facility]11 Social History Tobacco Use Types Packs/Day Years [...] EDT Office Visit [facility] [address] [facility] [place] [id number] Betsy Goodwin PA [address] [place] [id number] [phone] (work) documented as of this encounter Procedures Procedure Name Priority Date/Time Associated Diagnosis Comments US OB GROWTH 12/05/2023 1:40 PM EDT documented in this encounter Results * US OB GROWTH (12/05/2023 1:40 PM EDT) Anatomical Region Laterality Modality Other 12/05/2023 1:40 PM EDT Narrative 12/05/2023 1:43 PM EDT [address] [address] Ultrasound Report Signed Patient: DOMENIC GODINEZ MR#: [id number] : 1995 Acct:[id number] Age/Sex: 28 / F ADM Date: 12/05/23 Loc: [facility] Attending Dr: Jose Miguel Campuzano D.O. Ordering Physician: Jose Miguel Campuzano D.O. Date of Service: 12/05/23 Procedure(s): US OB growth Accession Number(s): [id number] cc: DUARTE VALDERRAMA ; Jose Miguel Campuzano D.O. [address] [address] Patient Name: DOMENIC GODINEZ MRN: [id number] date: 1995 Sex: F Assigned Patient Location: [facility] Current Patient Location: [facility] Accession/Order Number: [id number] Exam Date: 12/05/2023 08:57 Report Date: 12/05/2023 13:40 At the request of: JOSE MIGUEL CAMPUZANO Procedure: US OB growth EXAMINATION: US OB growth HISTORY: 2 VESSEL CORD COMPARISON: Ultrasound OB anatomy 10/15/2023 FINDINGS: Heart Rate: 130 bpm Amniotic Fluid Volume: 17.0 cm Number: 1 Position: Cephalic BIOMETRY: BPD: 7.0 cm; 28 weeks 1 day; 16% HC: 26.1 cm; 28 weeks 2 days; 9% AC: 23.9 cm; 28 weeks 1 day; 23% FL: 5.3 cm; 20 weeks 2 days; 20% EFW: 1192 g; 17.3% FL/AC: 22.35 FL/BPD: 76.25 HC/AC: 1.0 GESTATIONAL AGE: Age by EDC: 20 weeks 6 days NOVA by EDC: 02/21/2024 Age by US: 20 weeks 2 days NOVA by US: 02/25/2024 US/US OB growth IMPRESSION: 1. Single live intrauterine with growth detailed above. Electronically authenticated by: JOSUE KEBEDE Date: 12/05/2023 13:40 Dictated By: Josue Kebede M.D. Signed By: 12/05/23 1343 DD/ 1340 TD/TT: Seasonal Driver: Procedure Note Radiology, Radiologist, MD - 12/05/2023 [place] [address] Ultrasound Report Signed Patient: DOMENIC GODINEZ R#: [id number] : 1995Acct:[id number] Age/Sex: 28 / FADM Date: 12/05/23 Loc: [facility] Attending Dr: Jose Miguel Campuzano D.O. Ordering Physician: Jose Miguel Campuzano D.O. Date of Service: 12/05/23 Procedure(s): US OB growth Accession Number(s): [id number] cc: DUARTE VALDERRAMA ; Jose Miguel Campuzano D.O. [place] [address] Patient Name: DOMENIC GODINEZ MRN: [facility]:[id number] date: 1995 Sex: F Assigned Patient Location: [facility] Current Patient Location: [facility] Accession/Order Number: [id number] Exam Date: 12/05/2023 08:57 Report Date: 12/05/2023 13:40 At the request of: JOSE MIGUEL CAMPUZANO Procedure: US OB growth EXAMINATION: US OB growth HISTORY: 2 VESSEL CORD COMPARISON: Ultrasound OB anatomy 10/15/2023 FINDINGS: Heart Rate: 130 bpm Amniotic Fluid Volume: 17.0 cm Number: 1 Position: Cephalic BIOMETRY: BPD: 7.0 cm; 28 weeks 1 day; 16% HC: 26.1 cm; 28 weeks 2 days; 9% AC: 23.9 cm; 28 weeks 1 day; 23% FL: 5.3 cm; 20 weeks 2 days; 20% EFW: 1192 g; 17.3% FL/AC: 22.35 FL/BPD: 76.25 HC/AC: 1.0 GESTATIONAL AGE: Age by EDC: 20 weeks 6 days NOVA by EDC: 02/21/2024 Age by US: 20 weeks 2 days NOVA by US: 02/25/2024 US/US OB growth IMPRESSION: 1. Single live intrauterine with growth detailed above. Electronically authenticated by: JOSUE KEBEDE Date: 12/05/2023 13:40 Dictated By: Josue Kebede M.D. Signed By:12/05/23 1343 DD/ 1340 TD/TT: Seasonal Driver: us Jose Miguel Campuzano DO [facility] Final Result documented in this encounter Visit Diagnoses Not on filedocumented in this encounter Care Teams Sales Representative Groceries Relationship Specialty Start Date End Date Raudel Osborne MD [address] [place] [address] PCP - General Family Medicine 03/02/24 Jose Miguel Campuzano DO [address] [place] [address] [place] [address] PCP - [facility] 03/17/24 documented as of this encounter
--- OUTSIDE RECORDS SUMMARY | 2024-12-15 12:07 | XMS_ITS | Encounter Summary ---
Author Organization [facility] Address [address] [place] [address] Care Team Providers Care Food Checkers And Cashiers Supervisor Name Role Phone Raudel Osborne MD Primary Care Provider [phone] Edward Campuzano DO Unavailable Encounter Details Date Type Department Care Team (Late Contact Info) Description 02/04/2024 Abstract [facility] BCP OB [address] [facility] [address] Edward Campuzano DO [address] [facility] [address] Sukumar [place], [place] [address] Social History Tobacco Use Types Packs/Day Years [...] EDT Office Visit [facility] BCP OB [address] [facility] [place] [address] Betsy Goodwin PA [address] [facility] [place] [address] documented as of this encounter Visit Diagnoses Not on filedocumented in this encounter Care Teams Food Checkers And Cashiers Supervisor Relationship Specialty Start Date End Date Raudel Osborne MD [address] [place] [address] PCP - General Family Medicine 03/02/24 Edward Campuzano DO [address] [place] [address] PCP - [facility] 03/17/24 documented as of this encounter
--- OUTSIDE RECORDS SUMMARY | 2024-12-15 12:07 | XMS_ITS | Encounter Summary ---
Author Organization [facility] Address [address] [place] [address] Care Team Providers Care Retail Receiving Clerk Name Role Phone Raudel Osborne MD Primary Care Provider [phone] Edward Campuzano DO Unavailable Encounter Details Date Type Department Care Team (Late st Contact Info) Description 11/07/2023 External Result Encounter [facility] OB [address] [place] [address] Edward Campuzano, [address] [facility] [address] Sukumar [place], [facility]11 Social History Tobacco Use Types Packs/Day [...] AM EDT documented as of this encounter Miscellaneous Notes * Result Encounter Note - Brianna Roldan LPN - 11/07/2023 4:38 PM EDT Pt comes in Saturday for a routine OB visit and does not have orders yet. Will order it at this time! documented in this encounter Plan of Treatment Upcoming Encounters Date Type Department Care Team (Late st Contact Info) Description 12/31/2024 9:30 AM EDT Office Visit [facility] BCP OB [address] [facility] [place] [address] Betsy Goodwin PA [address] [facility] [place] [address] documented as of this encounter Procedures Procedure Name Priority Date/Time Associated Diagnosis Comments US OB 14+ WEEKS ANATOMY SCAN 11/07/2023 4:35 PM EDT documented in this encounter Results * US OB 14+ weeks anatomy scan (11/07/2023 4:35 PM EDT) Anatomical Region Laterality Modality Body Ultrasound 11/07/2023 4:35 PM EDT Narrative 11/07/2023 4:35 PM EDT THIS EXAM WAS PERFORMED AT [facility] REPORT (Signed Final 11/07/2023 16:35) PATIENT INFO: ID #: [id number] : [birth year] (28 yrs)(F) Name: DOMENIC GODINEZ Visit Date: 11/07/2023 13:27 PERFORMED BY: Attending: Mitul Stanford MD Performed By: Shana Pagan RDMS Referred By: Edward Sawyer. 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 Cord Insertion: Eccentric (>2cm from edge) Largest Pocket(cm) 5.13 BIOMETRY: BPD: 61.2 mm G.Age: 24w 6d 43 % OFD: 77.1 mm HC: 221.6 mm G.Age: 24w 1d 11 % AC: 197.8 mm G.Age: 24w 3d 28 % FL: 44.9 mm G.Age: 24w 6d 35 % HUM: 38.2 mm G.Age: 23w 4d 10 % CER: 27.4 mm G.Age: 24w 3d 53 % LV: 5.7 mm CM: 5 mm TIB: 38.8 mm G.Age: 24w 6d 43 % CI: 79.4 % 70 - 86 FL/HC: 20.3 % 18.7 - 20.3 HC/AC: 1.12 1.04 - 1.22 FL/BPD: 73.4 % 71 - 87 FL/AC: 22.7 % 20 - 24 Est. FW: 712 gm 1 lb 9 oz 28 % OB HISTORY: : 4 Term: 2 SAB: 1 Livin GESTATIONAL AGE: LMP: 24w 6d Date: 05/17/23 NOVA: 02/21/24 U/S Today: 24w 4d NOVA: 02/23/24 Best: 24w 6d Det. By: LMP (05/17/23) NOVA: 02/21/24 TARGETED ANATOMY: Central Nervous System Calvarium/Cranial V.: Appears normal Intracranial Holly: Appears normal Cavum: Appears normal Parenchyma: Appears Normal Lateral Ventricles: Appears normal Choroid Plexus: Appears normal Cereb./Vermis: Appears normal Cisterna Magna: Appears normal Midline Falx: Appears Normal Spine Cervical: Appears normal Thoracic: Appears normal Lumbar: Appears normal Sacral: Appears normal Head/Neck Face: Appears normal Lips: Appears normal Neck: Appears normal Nuchal Fold: Not evaluated d/t GA Nasal Bone: Present Palate: Appears normal Profile: Appears normal Orbits/Eyes: Appears normal Mandible: Appears Normal Maxilla: Appears normal Thorax Thoracic Contour: Appears normal Lungs: Appears normal 4 Chamber View: Appears normal Cardiac Activity: Appears Normal Cardiac Rhythm: Normal Cardiac Situs: Appears normal Rt Outflow Tract: Appears normal Lt Outflow Tract: Appears normal Aortic Arch: Appears normal Ductal Arch: Appears normal SVC: Appears Normal Interventr. Septum: Appears Normal Cardiac Appleton: Appears normal Diaphragm: Appears normal 3 Vessel View: Appears normal 3 V Trachea View: Appears Normal IVC: Appears normal Crossing: Appears normal Abdomen Ventral Wall: Appears normal Cord Insertion: Appears normal Situs: Appears normal Stomach: Appears normal Lt Kidney: Appears normal Rt Kidney: Appears normal Bladder: Appears normal Bowel: Appears normal Extremities Lt Humerus: Appears normal Rt Humerus: Appears normal Lt Forearm: Appears normal Rt Forearm: Appears normal Lt Hand: Appears normal Rt Hand: Appears normal Lt Femur: Appears normal Rt Femur: Appears normal Lt Lower Leg: Appears normal Rt Lower Leg: Appears normal Lt Foot: Appears normal Rt Foot: Appears normal Other Umbilical Cord: Single Umb Artery Masses: None visualized Genitalia: Male CERVIX UTERUS ADNEXA: Cervix Normal appearance by abdominal scan Uterus Gravid uterus Right Ovary Not visualized Left Ovary Not visualized Adnexa No adnexal masses identified COMMENTS: Ultrasound is not diagnostic for chromosomal abnormalities, will not detect all structural abnormalities, and is not diagnostic for genetic disorders even if multiple exams are performed during a given . Mitul Stanford MD Electronically Signed Final Report 11/07/2023 16:35 IMPRESSION: 1. Single intrauterine with size consistent with dates. 2. Amniotic fluid volume assessment (DVP) is normal. 3. Single umbilical artery identified, absent right. 4. No sonographic evidence of any other gross structural abnormality identified RECOMMENDATIONS: 1. Please see [facility] consultation documentation from today's encounter. 2. Subsequent follow up or other follow up as clinically determined by primary OB provider unless otherwise specified by M[facility]. 3. Results forwarded to ordering provider so they can follow up with the patient as necessary. Procedure Note Radiology, Radiologist, - 11/07/2023 [facility] REPORT (Signed Final 11/07/2023 16:35) PATIENT INFO: ID #: [id number] : [birth year] (28 yrs)(F) Name: DOMENIC GODINEZ Visit Date: 11/07/2023 13:27 PERFORMED BY: Attending: Mitul Stanford MD Performed By: Shana Pagan RDMS Referred By: Edward Sawyer. 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 Cord Insertion: Eccentric (>2cm from edge) Largest Pocket(cm) 5.13 BIOMETRY: BPD: 61.2 mm G.Age: 24w 6d 43 % OFD: 77.1 mm HC: 221.6 mm G.Age: 24w 1d 11 % AC: 197.8 mm G.Age: 24w 3d 28 % FL: 44.9 mm G.Age: 24w 6d 35 % HUM: 38.2 mm G.Age: 23w 4d 10 % CER: 27.4 mm G.Age: 24w 3d 53 % LV: 5.7 mm CM: 5 mm TIB: 38.8 mm G.Age: 24w 6d 43 % CI: 79.4 % 70 - 86 FL/HC: 20.3 % 18.7 - 20.3 HC/AC: 1.12 1.04 - 1.22 FL/BPD: 73.4 % 71 - 87 FL/AC: 22.7 % 20 - 24 Est. FW: 712 gm 1 lb 9 oz 28 % OB HISTORY: : 4 Term: 2 SAB: 1 Livin GESTATIONAL AGE: LMP: 24w 6d Date: 05/17/23 NOVA: 02/21/24 U/S Today: 24w 4d NOVA: 02/23/24 Best: 24w 6d Det. By: LMP (05/17/23) NOVA: 02/21/24 TARGETED ANATOMY: Central Nervous System Calvarium/Cranial V.: Appears normal Intracranial Holly: Appears normal Cavum: Appears normal Parenchyma: Appears Normal Lateral Ventricles: Appears normal Choroid Plexus: Appears normal Cereb./Vermis: Appears normal Cisterna Magna: Appears normal Midline Falx: Appears Normal Spine Cervical: Appears normal Thoracic: Appears normal Lumbar: Appears normal Sacral: Appears normal Head/Neck Face: Appears normal Lips: Appears normal Neck: Appears normal Nuchal Fold: Not evaluated d/t GA Nasal Bone: Present Palate: Appears normal Profile: Appears normal Orbits/Eyes: Appears normal Mandible: Appears Normal Maxilla: Appears normal Thorax Thoracic Contour: Appears normal Lungs: Appears normal 4 Chamber View: Appears normal Cardiac Activity: Appears Normal Cardiac Rhythm: Normal Cardiac Situs: Appears normal Rt Outflow Tract: Appears normal Lt Outflow Tract: Appears normal Aortic Arch: Appears normal Ductal Arch: Appears normal SVC: Appears Normal Interventr. Septum: Appears Normal Cardiac Appleton: Appears normal Diaphragm: Appears normal 3 Vessel View: Appears normal 3 V Trachea View: Appears Normal IVC: Appears normal Crossing: Appears normal Abdomen Ventral Wall: Appears normal Cord Insertion: Appears normal Situs: Appears normal Stomach: Appears normal Lt Kidney: Appears normal Rt Kidney: Appears normal Bladder: Appears normal Bowel: Appears normal Extremities Lt Humerus: Appears normal Rt Humerus: Appears normal Lt Forearm: Appears normal Rt Forearm: Appears normal Lt Hand: Appears normal Rt Hand: Appears normal Lt Femur: Appears normal Rt Femur: Appears normal Lt Lower Leg: Appears normal Rt Lower Leg: Appears normal Lt Foot: Appears normal Rt Foot: Appears normal Other Umbilical Cord: Single Umb Artery Masses: None visualized Genitalia: Male CERVIX UTERUS ADNEXA: Cervix Normal appearance by abdominal scan Uterus Gravid uterus Right Ovary Not visualized Left Ovary Not visualized Adnexa No adnexal masses identified COMMENTS: Ultrasound is not diagnostic for chromosomal abnormalities, will not detect all structural abnormalities, and is not diagnostic for genetic disorders even if multiple exams are performed during a given . Mitul Stanford MD Electronically Signed Final Report 11/07/2023 16:35 IMPRESSION: 1. Single intrauterine with size consistent with dates. 2. Amniotic fluid volume assessment (DVP) is normal. 3. Single umbilical artery identified, absent right. 4. No sonographic evidence of any other gross structural abnormality identified RECOMMENDATIONS: 1. Please see [facility] consultation documentation from today's encounter. 2. Subsequent follow up or other follow up as clinically determined by primary OB provider unless otherwise specified by [facility]. 3. Results forwarded to ordering provider so they can follow up with the patient as necessary. us Edward Campuzano DO IM OB US PROCEDURES Final Resul t documented in this encounter Visit Diagnoses Not on filedocumented in this encounter Care Teams Retail Receiving Clerk Relationship Specialty Start Date End Date Raudel Osborne MD [address] [facility] [place] [address] PCP - General Family Medicine 03/02/24 Edward Campuzano DO [address] [place] [address] Dr [address] [place] [address] PCP - [facility] 03/17/24 documented as of this encounter
--- OUTSIDE RECORDS SUMMARY | 2024-12-15 12:07 | XMS_ITS | Encounter Summary ---
Author Organization [facility] Address [address] [place] [address] Care Team Providers Care Assistant Boys Track Coach Name Role Phone Raudel Osborne MD Primary Care Provider [phone] Edward Campuzano DO Unavailable Encounter Details Date Type Department Care Team (Late Contact Info) Description 02/05/2024 Abstract [facility] BCP OB [address] [place] [address] Edward Campuzano DO [address] [facility] [address] [place], [place] [address] Social History Tobacco Use Types Packs/Day Years [...] EDT Office Visit [facility] BCP OB [address] [facility] [place] [address] eBtsy Goodwin PA [address] [facility] [place] [address] documented as of this encounter Visit Diagnoses Not on filedocumented in this encounter Care Teams Assistant Boys Track Coach Relationship Specialty Start Date End Date Raudel Osborne MD [address] [facility] [place] [address] PCP - General Family Medicine 03/02/24 Edward Campuzano DO [address] [place] [address] PCP - [facility] 03/17/24 documented as of this encounter
--- OUTSIDE RECORDS SUMMARY | 2024-12-15 12:07 | XMS_ITS | Patient Health Record ---
Author Organization [facility] in [place] Address [address] [place] [address] Care Team Providers Care Insurance Claims Supervisor Name Role Phone Noemi Valderrama Primary Care Provider JohngeniaJose Alberto [phone] Allergies No Known Allergies Results Component Value Reference Range Notes US right upper quadrant Reviewed date:10/08/2024 01:28:50 PM Interpretation: Performing Lab: Notes/Report: Source Facility: [place] [address] Ultrasound Report Signed Patient: SANDY GODINEZ MR#: [id number] : 1995 Acct:[id number] Age/Sex: 29 / F ADM Date: 10/08/24 Loc: US Attending Dr: NOEMI VALDERRAMA Ordering Physician: NOEMI VALDERRAMA Date of Service: 10/08/24 Procedure(s): US right upper quadrant Accession Number(s): [id number] cc: NOEMI VALDERRAMA [place] [id number] Patient Name: SANDY GODINEZ MRN: [id number]:[id number] date: 1995 Sex: F Assigned Patient Location: US Current Patient Location: US Accession/Order Number: [id number] Exam Date: 10/08/2024 13:05 Report Date: 10/08/2024 13:07 At the request of: NOEMI VALDERRAMA Procedure: US right upper quadrant LIMITED ABDOMINAL ULTRASOUND: CLINICAL HISTORY: Abnormal liver function COMPARISON: None TECHNIQUE: Grayscale and color Doppler images of the right upper quadrant organs were obtained. FINDINGS: Pancreas: Visualized portions appear unremarkable. Liver: Fatty infiltration with a potential hypoechoic lesion left lobe of the liver measuring 1.7 x 1.5 x 1.3 cm. Gallbladder: Lobe. CBD: 3.2 mm RT KIDNEY: No hydronephrosis. US/US right upper quadrant IMPRESSION: FATTY INFILTRATION OF LIVER POTENTIAL HYPOECHOIC LESION INVOLVING THE LEFT LOBE LIVER MEASURING 1.7 X 1.5 X 1.3 CM. COMPLETE EVALUATION WITH LIVER CT WITH AND WITHOUT IV CONTRAST IS RECOMMENDED.. Impression dictated by: Pk Frost Jr., D.O.10/08/2024 1:07 PM Dictation Location: [place] [address] Electronically authenticated by: [id number] Y Date: 10/08/2024 13:07 Dictated By: Pk Frost M.D. Signed By: 10/08/24 1309 DD/ 1307 TD/TT: Transcriber: [place] [address] Ultrasound Report Signed Patient: SHERON GODINEZ MR#: [id number] : 1995 Acct:[id number] Age/Sex: 29 / F ADM Date: 10/08/24 Loc: Attending Dr: NOEMI VALDERRAMA Ordering Physician: NOEMI VALDERRAMA Date of Service: 10/08/24 Procedure(s): US rig ht upper quadrant Accession Number(s): [id number] cc: NOEMI VALDERRAMA [place] [id number] Patient Name: SANDY GODINEZ MRN: [id number] date: 1995 Sex: F Assigned Patient Location: US Current Patient Location: US Accession/Order Numb er: [id number] Exam Date: 10/08/2024 13:05 Report Date: 10/08/2024 13:07 At the request of: NOEMI VALDERRAMA Procedure: US right upper quadrant LIMITED ABDOMINAL ULTRASOUND: CLINICAL HISTORY: Abnormal liver function COMPARISON: None TECHNIQUE: Grayscale and color Doppler images of the right upper quadrant organs were obtained. FINDINGS: Pancreas: Visualized portions appear unremarkable. Liver: Fatty infiltration with a potential hypoechoic lesion left lobe of the liver measuring 1.7 x 1.5 x 1.3 cm. Gallbladder: Lobe. CBD: 3.2 mm RT KIDNEY: No hydronephrosis. US/US right upper quadrant IMPRESSION: FATTY INFILTRATION O F LIVER POTENTIAL HYPOECHOIC LESION INVOLVING THE LEFT LOBE LIVER MEASURING 1.7 X 1.5 X 1.3 CM. COMPLETE EVALUATION WITH LIVER CT WITH AND WITHOUT IV CONTRAST IS RECOMMENDED.. Impression dictated by: Pk Frost Jr., D.O.10/08/2024 1:07 PM Dictation Location: [place] [address] Electronically authenticated by: [id number] Y Date: 10/08/2024 13:07 Dictated By: Pk Frost M.D. Signed By: 10/08/24 1309 DD/ 1307 TD/TT: Transcriber: US OB umbilical artery Reviewed date:02/03/2024 05:01:57 PM Interpretation: Performing Lab: Notes/Report: Source Facility: [place] [address] Ultrasound Report Signed Patient: SANDY GODINEZ MR#: [id number] : 1995 Acct:[id number] Age/Sex: 28 / F ADM Date: 02/03/24 Loc: US Attending Dr: Jose Miguel Campuzano D.O. Ordering Physician: Jose Miguel Campuzano D.O. Date of Service: 02/03/24 Procedure(s): US OB umbilical artery Accession Number(s): [id number] cc: NOEMI VALDERRAMA ; Jose Miguel Campuzano D.O. The [place] [id number] Patient Name: SANDY GODINEZ MRN: [id number]:[id number] date: 1995 Sex: F Assigned Patient Location: [facility] Current Patient Location: Accession/Order Number: [id number] Exam Date: 02/03/2024 11:30 Report Date: 02/03/2024 16:27 At the request of: JOSE MIGUEL CAMPUZANO Procedure: US OB umbilical artery EXAMINATION: US OB umbilical artery HISTORY: Two vessel umbilical cord COMPARISON: No relevant comparison available. TECHNIQUE: Duplex Doppler evaluation of the umbilical arteries. FINDINGS: Single umbilical artery position: Cephalic presentation, longitudinal lie Amniotic fluid: 14.0 cm, largest fluid pocket 5.7 cm Proximal umbilical artery: 82/48 cm/s. Resistive index 0.41. Ratio 1.7 Mid umbilical artery: 151, 68 cm/s. Resistive index 0.55. Ratio 2.2 Distal umbilical artery: 89/39 cm/s. Resistive index 0.56. Ratio 2.2 Forward flow identified throughout diastole US/US OB umbilical artery IMPRESSION: Class 0 Single umbilical artery Umbilical Artery: Class 0 = Normal umbilical artery blood velocity Class I = increased RI or PI, but still forward flow in diastole Class II = Absent end diastolic flow (AEDF) Class III = Reversal of end diastolic flow (REDF) Resistive Index (RI)<1 Systolic/Diastolic ratio (S:D): An S:D ratio of 2-3 after 34 wks is normal Systolic/Diastolic ratio (S:D): Age 16: 3.01 for the 10th percentile, 4.25 for the 50th percentile, 6.07 for the 90th percentile Age 20: 3.16 for the 10th percentile, 4.04 for the 50th percentile, 5.24 for the 90th percentile Age 24: 2.70 for the 10th percentile, 3.50 for the 50th percentile, 4.75 for the 90th percentile Age 28: 2.41 for the 10th percentile, 3.02 for the 50th percentile, 3.97 for the 90th percentile Age 30: 2.43 for the 10th percentile, 3.04 for the 50th percentile, 3.80 for the 90th percentile Age 32: 2.27 for the 10th percentile, 2.73 for the 50th percentile, 3.57 for the 90th percentile Age 34: 2.08 for the 10th percentile, 2.52 for the 50th percentile, 3.41 for the 90th percentile Age 36: 1.96 for the 10th percentile, 2.35 for the 50th percentile, 3.15 for the 90th percentile Age 38: 1.89 for the 10th percentile, 2.24 for the 50th percentile, 3.10 for the 90th percentile Age 40: 1.88 for the 10th percentile, 2.22 for the 50th percentile, 2.68 for the 90th percentile Age 41: 1.93 for the 10th percentile, 2.21 for the 50th percentile, 2.55 for the 90th percentile Age 42: 1.91 for the 10th percentile, 2.51 for the 50th percentile, 3.21 for the 90th percentile Uteroplacental Artery: Resistive Index (RI): Normal=<0.55 High Resistance=Bilateral notches (after 26 wks) and RI>0.55. Unilateral notches (after 26 wks) and RI>0.65 Systolic/Diastolic ratio (S:D) = 2-3 is normal after 32 weeks. Electronically authenticated by: KIRK OATES Date: 02/03/2024 16:27 Dictated By: Kirk Oates M.D. Signed By: 02/03/241628 DD/ 26 TD/TT: Transcriber: [place] [address] Ultrasound Report Signed Patient: SHERON GODINEZ MR#: [id number] : 1995 Acct:[id number] Age/Sex: 28 / F ADM Date: 02/03/24 Loc: US Attending Dr: Jose Miguel Campuzano D.O. Ordering Physician: Jose Miguel Campuzano D.O. Date of Service: 02/03/24 Procedure(s): US OB umbilical artery Accession Number(s): [id number] cc: NOEMI VALDERRAMA ; Jose Miguel Campuzano D.O. [place] [phone] Patient Name: SANDY GODINEZ MRN: [id number] date: 1995 Sex: F Assigned Patient Location: [facility] Current Patient Location: US Accession/Order Numb er: [id number] Exam Date: 02/03/2024 11:30 Report Date: 02/03/2024 16:27 At the request of: JOSE MIGUEL CAMPUZANO Procedure: US OB umbilical artery EXAMINATION: US OB umbilical artery HISTORY: Two vessel umbilical cord COMPARISON: No relev ant comparison available. TECHNIQUE: Duplex Doppler evaluation of the umbilical arteries. FINDINGS: Single umbilical artery position: Cephalic presentation, longitudinal lie Amniotic fluid: 14.0 cm, largest fluid pocket 5.7 cm Proximal umbilical artery: 82/48 cm/s. Resistive index 0.41. Ratio 1.7 Mid umbilical artery : 151, 68 cm/s. Resistive index 0.55. Ratio 2.2 Distal umbilical artery: 89/39 cm/s. Resistive index 0.56. Ratio 2.2 Forward flow identif ied throughout diastole US/US OB umbilical artery IMPRESSION: Class 0 Single umbilical artery Umbilical Artery: Class 0 = Normal umbilical artery blood velocity Class I = increased RI or PI, but still forward flow in diastole Class II = Absent en d diastolic flow (AEDF) Class III = Reversal of end diastolic flow (REDF) Resistive Index (RI)<1 Systolic/Diastolic ratio (S:D): An S:D ratio of 2-3 after 34 wks is normal Systolic/Diastolic ratio (S:D): Age 16: 3.01 for the 10th percentile, 4.25 for the 50th percentile, 6.07 for the 90th percentile Age 20: 3.16 for the 10th percentile, 4.04 for the 50th percentile, 5.24 for the 90th percentile Age 24: 2.70 for the 10th percentile, 3.50 for the 50th percentile, 4.75 for the 90th percentile Age 28: 2.41 for the 10th percentile, 3.02 for the 50th percentile, 3.97 for the 90th percentile Age 30: 2.43 for the 10th percentile, 3.04 for the 50th percentile, 3.80 for the 90th percentile Age 32: 2.27 for the 10th percentile, 2.73 for the 50th percentile, 3.57 for the 90th percentile Age 34: 2.08 for the 10th percentile, 2.52 for the 50th percentile, 3.41 for the 90th percentile Age 36: 1.96 for the 10th percentile, 2.35 for the 50th percentile, 3.15 for the 90th percentile Age 38: 1.89 for the 10th percentile, 2.24 for the 50th percentile, 3.10 for the 90th percentile Age 40: 1.88 for the 10th percentile, 2.22 for the 50th percentile, 2.68 for the 90th percentile Age 41: 1.93 for the 10th percentile, 2.21 for the 50th percentile, 2.55 for the 90th percentile Age 42: 1.91 for the 10th percentile, 2.51 for the 50th percentile, 3.21 for the 90th percentile Uteroplacental Artery: Resistive Index (RI): Normal=<0.55 High Resistance=Bilateral notches (after 26 wks) and RI>0.55. Unilateral notches (after 26 wk s) and RI>0.65 Systolic/Diastolic ratio (S:D) = 2-3 is normal after 32 weeks. Electronically authenticated by: KIRK OATES Date: 02/03/2024 16:27 Dictated By: Samm Oates M.D. Signed By: 02/03/241628 DD/ 26 TD/TT: Transcriber: UA (CLEAN or CATCH) NANOSCIENCE TECHNICIAN or M ICRO IF IND. Reviewed date:01/06/2024 09:10:20 AM Interpretation: Performing Lab: Notes/Report: [facility] , Color Urine LT. YELLOW YELLOW Clarity Urine CLEAR CLEAR Specific [place] Urine 1.010 1.005-1.025 pH Urine 7.5 5.0-9.0 Protein Urine NEGATIVE NEG/TRACE mg/dL Glucose Urine UA NEGATIVE NEGATIVE mg/dL Bilirubin Urine NEGATIVE NEGATIVE Ketones Urine NEGATIVE NEGATIVE mg/dL Blood Urine NEGATIVE NEGATIVE Nitrite Urine NEGATIVE NEGATIVE Urobilinogen Urine 0.2 0.2-1.0 EU/dL Leukocyte Esterase Urine TRACE NEGATIVE Urine Microscopic Indicated YES Performing Lab: see note ML - [facility] LB URINE MICROSCOPIC ONLY Reviewed date:01/06/2024 09:10:20 AM Interpretation: Performing Lab: Notes/Report: [facility] , WBC Urine 0-2 NONE SEEN #/HPF RBC Urine 0-2 0-2 #/HPF Bacteria Urine SMALL NONE SEEN #/HPF Mucus Urine NONE SEEN NONE SEEN Squamous Epithelial Cell Urine FEW NONE/RARE #/LPF Crystals Seen? None Seen None Seen #/HPF Cast Seen? NONE SEEN NONE SEEN #/LPF Urine Culture Indicated YES Performing Lab: see note ML - [facility] LB UA (CLEAN or CATCH) NANOSCIENCE TECHNICIAN or M ICRO IF IND. Reviewed date:01/13/2024 11:32:03 AM Interpretation: Performing Lab: Notes/Report: [facility] , Color Urine YELLOW YELLOW Clarity Urine CLEAR CLEAR Specific [place] Urine >=1.030 1.005-1.025 pH Urine 6.0 5.0-9.0 Protein Urine NEGATIVE NEG/TRACE mg/dL Glucose Urine UA NEGATIVE NEGATIVE mg/dL Bilirubin Urine NEGATIVE NEGATIVE Ketones Urine NEGATIVE NEGATIVE mg/dL Blood Urine NEGATIVE NEGATIVE Nitrite Urine NEGATIVE NEGATIVE Urobilinogen Urine 4.0 0.2-1.0 EU/dL Leukocyte Esterase Urine NEGATIVE NEGATIVE Urine Microscopic Indicated NO Performing Lab: see note ML - [facility] LB UA (CLEAN or CATCH) NANOSCIENCE TECHNICIAN or M ICRO IF IND. Reviewed date:01/23/2024 08:35:08 AM Interpretation: Performing Lab: Notes/Report: [facility] , Color Urine LT. YELLOW YELLOW Clarity Urine CLEAR CLEAR Specific [place] Urine 1.015 1.005-1.025 pH Urine 7.5 5.0-9.0 Protein Urine NEGATIVE NEG/TRACE mg/dL Glucose Urine UA NEGATIVE NEGATIVE mg/dL Bilirubin Urine NEGATIVE NEGATIVE Ketones Urine NEGATIVE NEGATIVE mg/dL Blood Urine NEGATIVE NEGATIVE Nitrite Urine NEGATIVE NEGATIVE Urobilinogen Urine 1.0 0.2-1.0 EU/dL Leukocyte Esterase Urine NEGATIVE NEGATIVE Urine Microscopic Indicated NO Performing Lab: see note ML - [facility] LB SCREEN Reviewed date:02/07/2024 11:20:13 AM Interpretation: Performing Lab: Notes/Report: [facility] , Patient Cell Negative HCG Qualitative* Reviewed date:03/10/2024 03:56:10 PM Interpretation: Performing Lab: Notes/Report: [facility] , HCG Qualitative NEGATIVE NEGATIVE Performing Lab: see note - [facility] LB CBC AUTO DIFF Reviewed date:08/12/2024 09:30:30 AM Interpretation: Performing Lab: Notes/Report: [facility] , White Blood Count 7.3 4.0-11.0 10 3/uL Red Blood Count 4.58 4.20-5.40 10 6/uL Hemoglobin 12.6 12.0-16.0 g/dL Hematocrit 39.5 36.0-48.0 % Mean Corpuscular Volume 86.2 81.0-99.0 fL Mean Corpuscular Hemoglobin 27.5 26.7-34.0 pg Mean Corpuscular HGB Conc 31.9 29.9-35.2 g/dL Red Cell Distribution Width 14.4 11.0-15.0 % Platelet Count 334 150-450 10 3/uL Mean Platelet Volume 9.5 9.5-13.5 fL Neutrophils Percent Auto 53.7 43.0-75.0 % Lymphocytes Percent Auto 33.3 20.5-60.0 % Monocytes Percent Auto 8.2 1.7-12.0 % Eosinophils Percent Auto 3.7 0.9-7.0 % Basophils Percent Auto 1.0 0.2-2.0 % Immature Granulocytes Pct Auto 0.1 0.0-0.5 % Neutrophils Absolute Auto 3.9 1.4-6.5 10 3/uL Lymphocytes Absolute Auto 2.4 1.2-3.8 10 3/uL Monocytes Absolute Auto 0.6 0.3-0.8 10 3/uL Eosinophils Absolute Auto 0.3 0.0-0.7 10 3/uL Basophils Absolute Auto 0.1 0.0-0.1 10 3/uL Immature Granulocytes Abs Auto 0.01 0.00-0.03 10 3/uL Performing Lab: see note ML - [facility] LB CRP Reviewed date:11/16/2024 11:46:14 AM Interpretation: Performing Lab: Notes/Report: [facility] , C Reactive Protein 0.51 <=0.50 mg/dL Performing Lab: see note ML - [facility] LB PROF 14(COMP METB) Reviewed date:11/16/2024 11:46:14 AM Interpretation: Performing Lab: Notes/Report: [facility] , Sodium 144 136-145 mmol/L Potassium 3.9 3.5-5.1 mmol/L Chloride 105 98-107 mmol/L Carbon Dioxide 30.9 21.0-32.0 mmol/L Anion Gap 12.0 Glucose 102 74-106 mg/dL Blood Urea Nitrogen 11.0 7.0-18.0 mg/dL Creatinine 0.63 0.55-1.02 mg/dL Estimated GFR ( Dary >60 >=60 mL/min/1.73m 2 Estimated GFR (Non- Angle >60 >=60 mL/min/1.73m 2 BUN Creatinine Ratio 17.5 Calcium 9.2 8.5-10.1 mg/dL Bilirubin Total 0.6 0.2-1.0 mg/dL Aspartate Amino Transferase 31 15-37 U/L Alanine Aminotransferase 49 14-59 U/L Alkaline Phosphatase 136 46-116 U/L Total Protein 7.2 6.4-8.2 g/dL Albumin Level 3.6 3.4-5.0 g/dL Globulin 3.6 Albumin Globulin Ratio 1.0 Performing Lab: see note ML - [facility] US renal bladder Reviewed date:11/18/2024 10:21:00 AM Interpretation: Performing Lab: Notes/Report: Source Facility: [place] [address] Ultrasound Report Signed Patient: SANDY GODINEZ MR#: [id number] : 1995 Acct:[id number] Age/Sex: 29 / F ADM Date: 11/18/24 Loc: US Attending Dr: NOEMI VALDERRAMA Ordering Physician: NOEMI VALDERRAMA Date of Service: 11/18/24 Procedure(s): US renal bladder Accession Number(s): [id number] cc: NOEMI VALDERRAMA [place] [address] Patient Name: SANDY GODINEZ MRN: [id number] date: 1995 Sex: F Assigned Patient Location: Current Patient Location: US Accession/Order Number: [id number] Exam Date: 11/18/2024 09:34 Report Date: 11/18/2024 09:37 At the request of: NOEMI VALDERRAMA Procedure: US renal bladder BILATERAL RENAL AND BLADDER ULTRASOUND CLINICAL HISTORY: Frequent Urinary Tract Infection COMPARISON: CT 10/27/2024 Estimation of renal size is approximately 10.2 cm on the right and 11.3 cm on the left. No shadowing calculi or hydronephrosis are identified. No renal mass lesions were imaged. There is no perinephric fluid. The liver appears slightly echogenic with respect to the kidney and this may indicate fatty infiltration. The urinary bladder is partially distended with a volume of 80 mL. No contour or intraluminal abnormalities are seen. Bilateral ureteral jets are visualized. The post void bladder residual is 5 mL. US/US renal bladder IMPRESSION: NO OBSTRUCTIVE UROPATHY. Impression dictated by: Piedad Trujillo M.D. 11/18/2024 9:37 AM Dictation Location: [place] [address] Electronically authenticated by: [id number] Y Date: 11/18/2024 09:37 Dictated By: Piedad Trujillo M.D. Signed By: 11/18/2439 DD/ 6 TD/TT: Transcriber: [place] [address] Ultrasound Report Signed Patient: SHERON GODINEZ MR#: [id number] : 1995 Acct:[id number] Age/Sex: 29 / F ADM Date: 11/18/24 Loc: Attending Dr: NOEMI VALDERRAMA Ordering Physician: NOEMI VALDERRAMA Date of Service: 11/18/24 Procedure(s): US piyush al bladder Accession Number(s): [id number] cc: NOEMI VALDERRAMA [place] [phone] Patient Name: SANDY GODINEZ MRN: [id number] date: 1995 Sex: F Assigned Patient Location: US Current Patient Location: US Accession/Order Numb er: [id number] Exam Date: 11/18/2024 09:34 Report Date: 11/18/2024 09:37 At the request of: NOEMI VALDERRAMA Procedure: US renal bladder BILATERAL RENAL AND BLADDER ULTRASOUND CLINICAL HISTORY: Frequent Urinary Tract Infection COMPARISON: CT 10/27/2024 Estimation of renal size is approximately 10.2 cm on the right and 11.3 cm on the left. No shadowi ng calculi or hydronephrosis are identified. No renal mass lesions were imaged. There is no perinephric fluid. The liver appears slightly echogenic w ith respect to the kidney and this may indicate fatty infiltration. The urinary bladder is partially distended with a volume of 80 mL. No contour or intraluminal abnormalities are seen. Bilateral ureteral jets are visualized. The post void bladder residual is 5 mL. US/US renal bladder IMPRESSION: NO OBSTRUCTIVE UROPATHY. Impression dictated by: Piedad Trujillo M.D. 11/18/2024 9:37 AM Dictation Location: [place] [address] Electronically authenticated by: [id number] Y Date: 11/18/2024 09:37 Dictated By: Piedad Trujillo M.D. Signed By: 11/18/24938 DD/ 6 TD/TT: Transcriber: [facility]pt[facility] HPV,Age Gdln Reviewed date:10/22/2024 11:54:07 AM Interpretation: Performing Lab: Notes/Report: BRUSH-SPATULA CERVIX ENDOCERVIX [facility] , Age Gdln ACOG Testing Note . TESTS RESULT FLAG UNITS REF RANGE LAB Clinician Provided Cytology Information Source.............Cer vix;Endocervix No. of containers..01 ThinPrep Vial Age Algo ACOG Ela... -15 07 FLAG LEGEND: L-Low Normal,H-High Normal,LL-Alert Low,HH-Alert High <-Panic Low,>-Panic High,A-Abnormal,AA-Cri tical Abnormal Performed at: 01 =G [address] [address] Katherine Thomason MD, IGP, rfx [facility] HPV ASCU Note . TESTS RESULT FLAG UNITS REF RANGE LAB DIAGNOSIS: 02 NEGATIVE FOR INTRAEPITHELIAL LESION OR MALIGNANCY. Specimen adequacy: 02 Satisfactory for evaluation. Endocervical and/or squamous metaplastic cells (endocervical component) are present. Performed by: Briana Murillo, Fine Craft Artist ([facility]) . 02 Note: Note 02 The Pap [...] L-Low Normal,H-High Normal,LL-Alert Low,HH-Alert High <-Panic Low,>-Panic High,A-Abnormal,AA-Cri tical Abnormal Performed at: [address] [place] [address] Katherine Thomason MD, Performed at: =G - [facility] [address] [id number] Supervisor Tumblers: Katherine Thomason MD, Phone: [phone] Performed at: - [facility] [id number] Supervisor Tumblers: Katherine Thomason MD, Phone: [phone] Performing Lab: see note - [facility] LB PROF 14(COMP METB) Reviewed date:10/06/2024 12:48:47 PM Interpretation: Performing Lab: Notes/Report: [facility] , Sodium 142 136-145 mmol/L Potassium 4.1 3.5-5.1 mmol/L Chloride 104 98-107 mmol/L Carbon Dioxide 30.4 21.0-32.0 mmol/L Anion Gap 11.7 Glucose 101 74-106 mg/dL Blood Urea Nitrogen 10.0 7.0-18.0 mg/dL Creatinine 0.65 0.55-1.02 mg/dL Estimated GFR ( Dary >60 >=60 mL/min/1.73m 2 Estimated GFR (Non- Angle >60 >=60 mL/min/1.73m 2 BUN Creatinine Ratio 15.4 Calcium 9.0 8.5-10.1 mg/dL Bilirubin Total 0.7 0.2-1.0 mg/dL Aspartate Amino Transferase 23 15-37 U/L Alanine Aminotransferase 76 14-59 U/L Alkaline Phosphatase 154 46-116 U/L Total Protein 7.1 6.4-8.2 g/dL Albumin Level 3.6 3.4-5.0 g/dL Globulin 3.5 Albumin Globulin Ratio 1.0 Performing Lab: see note ML - [facility] LB US pelvis transvaginal Reviewed date:09/21/2024 03:43:13 PM Interpretation: Performing Lab: Notes/Report: Source Facility: [facility] [place] [address] [place] [address] Ultrasound Report Signed Patient: SANDY GODINEZ MR#: [id number] : 1995 Acct:[id number] Age/Sex: 29 / F ADM Date: 09/15/24 Loc: US Attending Dr: Jose Miguel Campuzano D.O. Ordering Physician: Jose Miguel Campuzano D.O. Date of Service: 09/15/24 Procedure(s): US pelvis transvaginal Accession Number(s): [id number] cc: NOEMI VALDERRAMA ; Jose Miguel Campuzano D.O. [place] [phone] Patient Name: SANDY GODINEZ MRN: [id number] date: 1995 Sex: F Assigned Patient Location: US Current Patient Location: US Accession/Order Number: [id number] Exam Date: 09/15/2024 13:45 Report Date: 09/15/2024 13:47 At the request of: JOSE MIGUEL CAMPUZANO DO Procedure: US pelvis transvaginal Transvaginal [...] Vinicio Loyd M.D.09/15/2024 1:47 PM Dictation Location: [place] [address] Electronically authenticated by: [id number] Y Date: 09/15/2024 13:47 Dictated By: Vinicio Loyd D.O. Signed By: 09/15/24 1350 DD/ 1347 TD/TT: Transcriber: [place] [address] Ultrasound Report Signed Patient: SHERON GODINEZ MR#: [id number] : 1995 Acct:[id number] Age/Sex: 29 / F ADM Date: 09/15/24 Loc: US Attending Dr: Jose Miguel Campuzano D.O. Ordering Physician: Jose Miguel Campuzano D.O. Date of Service: 09/15/24 Procedure(s): US pel vis transvaginal Accession Number(s): [id number] cc: NOEMI VALDERRAMA ; Jose Miguel Campuzano D.O. [place] [phone] Patient Name: SANDY GODINEZ MRN: [id number] date: 1995 Sex: F Assigned Patient Location: US Current Patient Location: US Accession/Order Numb er: [id number] Exam Date: 09/15/2024 13:45 Report Date: 09/15/2024 13:47 At the request of: JOSE MIGUEL CAMPUZANO DO Procedure: US pelvis transvaginal Transvaginal pelvic ultrasound HISTORY: Left pelvic pain for 2 months. Uterus anteverted. N o uterine mass. Uterus measures 6.8 x 3.8 x 3.0 cm. Endometrium has a to dante combined thickness of 1.7 cm. Right ovary measures 1.4 x 1.6 x 2.7 cm. The resistive index of the right ovary 0.5. Left ovary measures 2.3 x 1.9 x 1.8 cm and has a resistive index of 0.5. Color-flow both ovaries. No adnexal mass. No free fluid. US/US pelvis transvaginal IMPRESSION: Unremarkable exam. Impression dictated by: Vinicio Loyd M.D.09/15/2024 1:47 PM Dictation Location: [place] [address] Electronically authenticated by: [id number] Y Date: 09/15/2024 13:47 Dictated By: Vinicio Loyd D.O. Signed By: 09/15/24 1350 DD/ 1347 TD/TT: Transcriber: Vitamin B12 Reviewed date:08/13/2024 02:35:55 PM Interpretation: Performing Lab: Notes/Report: [facility] , Vitamin B12 [phone] pg/mL Performed at: [facility] [address] [id number] Supervisor Tumblers: Chiki Santoyo PhD, Phone: [phone] Performing Lab: see note - [facility] LB VITAMIN D 25 [place] Reviewed date:08/13/2024 02:35:55 PM Interpretation: Performing Lab: Notes/Report: [place] [facility] , Vitamin D 24.3 <20 ng/mL Vit D deficient 20-<30 ng/mL Vit D insufficient 30-100 ng/mL Vit D sufficient >100 ng/mL Potential Toxicity Performing Lab: see note ML - [facility] LB TSH Reviewed date:08/13/2024 02:35:55 PM Interpretation: Performing Lab: Notes/Report: [facility] , Thyroid Stimulating Hormone 1.122 0.358-3.740 uIU/mL Performing Lab: see note ML - [facility] LB T4 Reviewed date:08/13/2024 02:35:55 PM Interpretation: Performing Lab: Notes/Report: [facility] , T4 Thyroxine 6.60 4.80-13.90 ug/dL Performing Lab: see note - [facility] LB PROF 14(COMP METB) Reviewed date:08/13/2024 02:35:55 PM Interpretation: Performing Lab: Notes/Report: [facility] , Sodium 140 136-145 mmol/L Potassium 4.2 3.5-5.1 mmol/L Chloride 103 98-107 mmol/L Carbon Dioxide 29.5 21.0-32.0 mmol/L Anion Gap 11.7 Glucose 99 74-106 mg/dL Blood Urea Nitrogen 12.0 7.0-18.0 mg/dL Creatinine 0.70 0.55-1.02 mg/dL Estimated GFR ( Dary >60 >=60 mL/min/1.73m 2 Estimated GFR (Non- Angle >60 >=60 mL/min/1.73m 2 BUN Creatinine Ratio 17.1 Calcium 9.6 8.5-10.1 mg/dL Bilirubin Total 0.6 0.2-1.0 mg/dL Aspartate Amino Transferase 33 15-37 U/L Alanine Aminotransferase 75 14-59 U/L Alkaline Phosphatase 138 46-116 U/L Total Protein 7.3 6.4-8.2 g/dL Albumin Level 3.8 3.4-5.0 g/dL Globulin 3.5 Albumin Globulin Ratio 1.1 Performing Lab: see note ML - [facility] LB LIPID PROFILE Reviewed date:08/13/2024 02:35:55 PM Interpretation: Performing Lab: Notes/Report: [facility] , Triglycerides 73 <=150 mg/dL Cholesterol 178 <=200 mg/dL HDL Cholesterol 61 40-60 mg/dL > or =60 mg/dl - LOW CARDIOVASCULAR RISK <40 mg/dl - HIGH CARDIOVASCULAR RISK LDL Cholesterol Calculated 103.0 <100 mg/dl OPTIMAL 100-129 mg/dl NEAR OR ABOVE OPTIMAL 130-159 mg/dl BORDERLINE HIGH 160-189 mg/dl HIGH >190 mg/dl VERY HIGH VLDL CHOLESTEROL 14.6 Chol HDL Ratio 2.9 3.3 - 4.4 LOW RISK 4.4 - 7.1 AVERAGE RISK 7.1 - 11.0 MODERATE RISK >11.0 HIGH RISK Performing Lab: see note ML - [facility] IRON Reviewed date:08/13/2024 02:35:55 PM Interpretation: Performing Lab: Notes/Report: [facility] , Iron 61.0 50.0-170.0 ug/dL Performing Lab: see note ML - [facility] INSULIN Reviewed date:08/13/2024 02:35:55 PM Interpretation: Performing Lab: Notes/Report: [facility] , Insulin 13.6 2.6-24.9 uIU/mL Performed at: [facility] [address] [id number] Supervisor Tumblers: Chiki Santoyo PhD, Phone: [phone] Performing Lab: see note - [facility] LB GLYCOHEMOGLOBIN A1C Reviewed date:08/13/2024 02:35:55 PM Interpretation: Performing Lab: Notes/Report: [facility] , Glycohemoglobin A1C 5.1 4.5-6.2 % ADA RECOMMENDED LIMIT 4.0 - 6.0 ADA THERAPEUTIC TARGET < 7.0 ACTION SUGGESTED > 7.0 Estimated Average Glucose 100 Performing Lab: see note ML - [facility] FREE T3 Reviewed date:08/13/2024 02:35:55 PM Interpretation: Performing Lab: Notes/Report: [facility] , Free T3 2.58 2.18-3.98 pg/mL Performing Lab: see note ML - [facility] LB PROF 14(COMP METB) Reviewed date:03/02/2024 10:30:32 AM Interpretation: Performing Lab: Notes/Report: [facility] , Sodium 142 136-145 mmol/L Potassium 4.0 3.5-5.1 mmol/L Chloride 105 98-107 mmol/L Carbon Dioxide 27.1 21.0-32.0 mmol/L Anion Gap 13.9 Glucose 106 74-106 mg/dL Blood Urea Nitrogen 9.0 7.0-18.0 mg/dL Creatinine 0.65 0.55-1.02 mg/dL Estimated GFR ( Dary >60 >=60 Estimated GFR (Non- Angle >60 >=60 BUN Creatinine Ratio 13.8 Calcium 9.0 8.5-10.1 mg/dL Bilirubin Total 0.6 0.2-1.0 mg/dL Aspartate Amino Transferase 16 15-37 U/L Alanine Aminotransferase 23 14-59 U/L Alkaline Phosphatase 126 46-116 U/L Total Protein 7.0 6.4-8.2 g/dL Albumin Level 3.2 3.4-5.0 g/dL Globulin 3.8 Albumin Globulin Ratio 0.8 Performing Lab: see note ML - [facility] LB LIPASE Reviewed date:03/02/2024 10:30:32 AM Interpretation: Performing Lab: Notes/Report: [facility] , Lipase 40.0 16.0-77.0 U/L Performing Lab: see note ML - [facility] LB CBC AUTO DIFF Reviewed date:03/02/2024 10:30:32 AM Interpretation: Performing Lab: Notes/Report: [facility] , White Blood Count 10.1 4.0-11.0 10 3/uL Red Blood Count 4.55 4.20-5.40 10 6/uL Hemoglobin 11.9 12.0-16.0 g/dL Hematocrit 39.2 36.0-48.0 % Mean Corpuscular Volume 86.2 81.0-99.0 fL Mean Corpuscular Hemoglobin 26.2 26.7-34.0 pg Mean Corpuscular HGB Conc 30.4 29.9-35.2 g/dL Red Cell Distribution Width 14.9 11.0-15.0 % Platelet Count 406 150-450 10 3/uL Mean Platelet Volume 9.7 9.5-13.5 fL Neutrophils Percent Auto 52.9 43.0-75.0 % Lymphocytes Percent Auto 34.7 20.5-60.0 % Monocytes Percent Auto 6.9 1.7-12.0 % Eosinophils Percent Auto 4.2 0.9-7.0 % Basophils Percent Auto 0.8 0.2-2.0 % Immature Granulocytes Pct Auto 0.5 0.0-0.5 % Neutrophils Absolute Auto 5.4 1.4-6.5 10 3/uL Lymphocytes Absolute Auto 3.5 1.2-3.8 10 3/uL Monocytes Absolute Auto 0.7 0.3-0.8 10 3/uL Eosinophils Absolute Auto 0.4 0.0-0.7 10 3/uL Basophils Absolute Auto 0.1 0.0-0.1 10 3/uL Immature Granulocytes Abs Auto 0.05 0.00-0.03 10 3/uL Performing Lab: see note ML - [facility] LB CBC AUTO DIFF Reviewed date:02/07/2024 11:20:13 AM Interpretation: Performing Lab: Notes/Report: [facility] , White Blood Count 13.0 4.0-11.0 10 3/uL Red Blood Count 3.35 4.20-5.40 10 6/uL Hemoglobin 9.1 12.0-16.0 g/dL Hematocrit 28.8 36.0-48.0 % Mean Corpuscular Volume 86.0 81.0-99.0 fL Mean Corpuscular Hemoglobin 27.2 26.7-34.0 pg Mean Corpuscular HGB Conc 31.6 29.9-35.2 g/dL Red Cell Distribution Width 15.2 11.0-15.0 % Platelet Count 324 150-450 10 3/uL Mean Platelet Volume 9.6 9.5-13.5 fL Neutrophils Percent Auto 67.3 43.0-75.0 % Lymphocytes Percent Auto 20.5 20.5-60.0 % Monocytes Percent Auto 8.8 1.7-12.0 % Eosinophils Percent Auto 1.8 0.9-7.0 % Basophils Percent Auto 0.5 0.2-2.0 % Immature Granulocytes Pct Auto 1.1 0.0-0.5 % Neutrophils Absolute Auto 8.8 1.4-6.5 10 3/uL Lymphocytes Absolute Auto 2.7 1.2-3.8 10 3/uL Monocytes Absolute Auto 1.1 0.3-0.8 10 3/uL Eosinophils Absolute Auto 0.2 0.0-0.7 10 3/uL Basophils Absolute Auto 0.1 0.0-0.1 10 3/uL Immature Granulocytes Abs Auto 0.14 0.00-0.03 10 3/uL Performing Lab: see note ML - [facility] LB Type and Screen Reviewed date:02/06/2024 10:43:24 AM Interpretation: Performing Lab: Notes/Report: [facility] , Blood Type O Negative Antibody Screen POSITIVE CBC no Diff (Hemogram) Reviewed date:02/06/2024 09:04:04 AM Interpretation: Performing Lab: Notes/Report: [facility] , White Blood Count 10.7 4.0-11.0 10 3/uL Red Blood Count 3.59 4.20-5.40 10 6/uL Hemoglobin 9.8 12.0-16.0 g/dL Hematocrit 31.2 36.0-48.0 % Mean Corpuscular Volume 86.9 81.0-99.0 fL Mean Corpuscular Hemoglobin 27.3 26.7-34.0 pg Mean Corpuscular HGB Conc 31.4 29.9-35.2 g/dL Red Cell Distribution Width 15.2 11.0-15.0 % Platelet Count 342 150-450 10 3/uL Mean Platelet Volume 9.6 9.5-13.5 fL Performing Lab: see note ML - [facility] LB DRUG SCREEN RAPID (URINE) Reviewed date:02/06/2024 09:04:04 AM Interpretation: Performing Lab: Notes/Report: [facility] , Cannabinoid Screen Urine NEGATIVE NEGATIVE Phencyclidine Screen Urine NEGATIVE NEGATIVE Cocaine Screen Urine NEGATIVE NEGATIVE Methamphetamines Screen Urine NEGATIVE NEGATIVE Opiate Screen Urine NEGATIVE NEGATIVE Amphetamine Screen Urine NEGATIVE NEGATIVE Benzodiazepines Screen Urine NEGATIVE NEGATIVE Tricyclic Antidepressant Urine NEGATIVE NEGATIVE Methadone Screen Urine NEGATIVE NEGATIVE Barbiturates Screen Urine NEGATIVE NEGATIVE Oxycodone Screen Urine NEGATIVE NEGATIVE Buprenorphine Screen Urine NEGATIVE NEGATIVE DRUG CLASS TEST SYSTEM CUT-OFF CONCENTRATIONS ARE FOLLOWS: AMP (Amphetamine): 500 ng/mL BAR (Barbiturates): 200 ng/mL BZO (Benzodiazepines): 150 ng/mL BUP (Buprenorphine): 10 ng/mL JEANNA (Cocaine): 150 ng/mL mAMP (Methamphetamine): 500 ng/mL MTD (Methadone): 200 ng/mL OPI (Opiates): 100 ng/mL OXY (Oxycodone): 100 ng/mL PCP (Phencyclidine): 25 ng/mL THC (Cannabinoids): 50 ng/mL TCA (Trycyclic Antidepressants): 300 ng/mL Performing Lab: see note ML - [facility] LB ANTIBODY ID PANEL Reviewed date:02/06/2024 10:43:24 AM Interpretation: Performing Lab: Notes/Report: [facility] , Antibody Identification D RHIG PROBABLE ANTI-D DUE TO RHIG ADMINISTRATION AT 28 WEEKS. FURTHER WORKUP AT PHYSICIAN'S REQUEST. Urine Culture, Routine Reviewed date:02/03/2024 03:06:46 PM Interpretation: Performing Lab: Notes/Report: [facility] , Urine Culture, Routine See Below For Report Urine Culture, Routine Urine Culture, Routine No growth Urine Culture, Routine Urine Culture, Routine Performed at: - [facility] [place] Urine Culture, Routine Urine Culture, Routine [address] [place], [place] [id number] Urine Culture, Routine Urine Culture, Routine Supervisor Tumblers: Forest Santoyo PhD, Phone: [phone] Urine Culture, Routine Performing Lab: see note LC - [facility] LB SEE REPORT - Ship Manager Id information not found for OBX-specific customer assistance representative legend URINE MICROSCOPIC ONLY Reviewed date:01/30/2024 03:50:39 PM Interpretation: Performing Lab: Notes/Report: [facility] , WBC Urine 5-10 NONE SEEN #/HPF RBC Urine 0-2 0-2 #/HPF Bacteria Urine MODERATE NONE SEEN #/HPF Mucus Urine TRACE NONE SEEN Squamous Epithelial Cell Urine FEW NONE/RARE #/LPF Transitional Epi Cells Urine RARE NONE SEEN #/LPF Crystals Seen? None Seen None Seen #/HPF Cast Seen? NONE SEEN NONE SEEN #/LPF Urine Culture Indicated YES Performing Lab: see note ML - [facility] LB UA (CLEAN or CATCH) NANOSCIENCE TECHNICIAN or M ICRO IF IND. Reviewed date:01/30/2024 03:50:52 PM Interpretation: Performing Lab: Notes/Report: [facility] , Color Urine LT. YELLOW YELLOW Clarity Urine CLEAR CLEAR Specific [place] Urine 1.010 1.005-1.025 pH Urine 6.0 5.0-9.0 Protein Urine NEGATIVE NEG/TRACE mg/dL Glucose Urine UA NEGATIVE NEGATIVE mg/dL Bilirubin Urine NEGATIVE NEGATIVE Ketones Urine NEGATIVE NEGATIVE mg/dL Blood Urine NEGATIVE NEGATIVE Nitrite Urine NEGATIVE NEGATIVE Urobilinogen Urine 0.2 0.2-1.0 EU/dL Leukocyte Esterase Urine TRACE NEGATIVE Urine Microscopic Indicated YES Performing Lab: see note ML - [facility] LB BOX TEST SENT OUT Reviewed date:02/11/2024 10:10:11 AM Interpretation: Performing Lab: Notes/Report: GROUP B STREP SENT TO LAB [facility] , BOX Test Sent Out See Vivian childress Report. Performing Lab: see note ML - [facility] LB Urine Culture, Routine Reviewed date:04/02/2024 09:59:26 AM Interpretation: Performing Lab: Notes/Report: [facility] , Urine Culture, Routine See Below For Report Urine Culture, Routine Acinetobacter lwoffii O:ACILWO Isolated O:STANEG Isolated Urine Culture, Routine *ABNORMAL* Urine Culture, Routine Acinetobacter lwoffii O:ACILWO Isolated O:STANEG Isolated Urine Culture, Routine 50,000-100,000 co lony forming units per mL Urine Culture, Routine Acinetobacter lwoffii O:ACILWO Isolated O:STANEG Isolated Urine Culture, Routine Urine Culture, Routine Acinetobacter lwoffii O:ACILWO Isolated O:STANEG Isolated Urine Culture, Routine Coag negative Staphylococcus Urine Culture, Routine Acinetobacter lwoffii O:ACILWO Isolated O:STANEG Isolated Urine Culture, Routine *ABNORMAL* Urine Culture, Routine Acinetobacter lwoffii O:ACILWO Isolated O:STANEG Isolated Urine Culture, Routine Based on suscepti bility to oxacillin this isolate would be Urine Culture, Routine Acinetobacter lwoffii O:ACILWO Isolated O:STANEG Isolated Urine Culture, Routine susceptible to: Urine Culture, Routine Acinetobacter lwoffii O:ACILWO Isolated O:STANEG Isolated Urine Culture, Routine *Penicillinase-st able penicillins, such as: Urine Culture, Routine Acinetobacter lwoffii O:ACILWO Isolated O:STANEG Isolated Urine Culture, Routine Cloxacillin, Dicloxacillin, Nafcillin Urine Culture, Routine Acinetobacter lwoffii O:ACILWO Isolated O:STANEG Isolated Urine Culture, Routine *Beta-lactam combination agents, such as: Urine Culture, Routine Acinetobacter lwoffii O:ACILWO Isolated O:STANEG Isolated Urine Culture, Routine Amoxicillin-clavu lanic acid, Ampicillin-sulbactam, Urine Culture, Routine Acinetobacter lwoffii O:ACILWO Isolated O:STANEG Isolated Urine Culture, Routine Piperacillin-tazobactam Urine Culture, Routine Acinetobacter lwoffii O:ACILWO Isolated O:STANEG Isolated Urine Culture, Routine *Oral cephems, such as: Urine Culture, Routine Acinetobacter lwoffii O:ACILWO Isolated O:STANEG Isolated Urine Culture, Routine Cefaclor, Cefdini r, Cefpodoxime, Cefprozil, Cefuroxime, Urine Culture, Routine Acinetobacter lwoffii O:ACILWO Isolated O:STANEG Isolated Urine Culture, Routine Cephalexin, Loracarbef Urine Culture, Routine Acinetobacter lwoffii O:ACILWO Isolated O:STANEG Isolated Urine Culture, Routine *Parenteral cephe ms, such as: Urine Culture, Routine Acinetobacter lwoffii O:ACILWO Isolated O:STANEG Isolated Urine Culture, Routine Cefazolin, Cefepi me, Cefotaxime, Cefotetan, Ceftaroline, Urine Culture, Routine Acinetobacter lwoffii O:ACILWO Isolated O:STANEG Isolated Urine Culture, Routine Ceftizoxime, Ceftriaxone, Cefuroxime Urine Culture, Routine Acinetobacter lwoffii O:ACILWO Isolated O:STANEG Isolated Urine Culture, Routine *Carbapenems, such as: Urine Culture, Routine Acinetobacter lwoffii O:ACILWO Isolated O:STANEG Isolated Urine Culture, Routine Doripenem, Ertape nem, Imipenem, Meropenem Urine Culture, Routine Acinetobacter lwoffii O:ACILWO Isolated O:STANEG Isolated Urine Culture, Routine Most isolates of Staphylococcus sp. produce a beta-lactamase Urine Culture, Routine Acinetobacter lwoffii O:ACILWO Isolated O:STANEG Isolated Urine Culture, Routine enzyme Urine Culture, Routine Acinetobacter lwoffii O:ACILWO Isolated O:STANEG Isolated Urine Culture, Routine rendering them resistant to penicillin. Please contact the Urine Culture, Routine Acinetobacter lwoffii O:ACILWO Isolated O:STANEG Isolated Urine Culture, Routine laboratory Urine Culture, Routine Acinetobacter lwoffii O:ACILWO Isolated O:STANEG Isolated Urine Culture, Routine if penicillin is being considered for therapy. Urine Culture, Routine Acinetobacter lwoffii O:ACILWO Isolated O:STANEG Isolated Urine Culture, Routine 50,000-100,000 co lony forming units per mL Urine Culture, Routine Acinetobacter lwoffii O:ACILWO Isolated O:STANEG Isolated Urine Culture, Routine See Below For Report Urine Culture, Routine Acinetobacter lwoffii O:ACILWO Isolated O:STANEG Isolated Urine Culture, Routine See Below For Report Urine Culture, Routine Acinetobacter lwoffii O:ACILWO Isolated O:STANEG Isolated Urine Culture, Routine Performed at: CB - [facility] [place] Urine Culture, Routine Acinetobacter lwoffii O:ACILWO Isolated O:STANEG Isolated Urine Culture, Routine [address] [place], [place] [id number] Urine Culture, Routine Acinetobacter lwoffii O:ACILWO Isolated O:STANEG Isolated Urine Culture, Routine Supervisor Tumblers: Forest Santoyo PhD, Phone: [phone] Urine Culture, Routine Acinetobacter lwoffii O:ACILWO Isolated O:STANEG Isolated Performing Lab: see note LC - [facility] LB SEE REPORT - Ship Manager Id information not found for OBX-specific customer assistance representative legend Urine Culture Result 1 Reviewed date:04/02/2024 09:59:26 AM Interpretation: Performing Lab: Notes/Report: [facility] , Urine Culture Result 1 See Below For Report Urine Culture Result 1 Acinetobacter lwoffii O:ACILWO Isolated O:CNSS Isolated Organism: 1.1 Antibiotic Interpretation DANILO Status Amikacin Amikacin S F Ampicillin/Sulbactam Ampicillin/Sulbactam S F Cefepime Cefepime R F Cefotaxime Cefotaxime R F Ceftazidime Ceftazidime R F Ceftriaxone Ceftriaxone S F Ciprofloxacin Ciprofloxacin S F Gentamicin Gentamicin S F Levofloxacin Levofloxacin S F Meropenem Meropenem S F Tetracycline Tetracycline S F Ticarcillin/Ca Ticarcillin/Ca S F Tobramycin Tobramycin S F Trimethoprim/Sulfameth oxazole Trimethoprim/Sulfameth oxazole R F Organism: 1.2 Antibiotic Interpretation DANILO Status Ciprofloxacin Ciprofloxacin S F Gentamicin Gentamicin S F Levofloxacin Levofloxacin S F Moxifloxacin Moxifloxacin S F Nitrofurantoin Nitrofurantoin S F Oxacillin Oxacillin S F Rifampin Rifampin S F Tetracycline Tetracycline S F Trimethoprim/Sulfameth oxazole Trimethoprim/Sulfameth oxazole S F Vancomycin Vancomycin S F Organism: 2.1 Antibiotic Interpretation DANILO Status Amikacin Amikacin S F Ampicillin/Sulbactam Ampicillin/Sulbactam S F Cefepime Cefepime R F Cefotaxime Cefotaxime R F Ceftazidime Ceftazidime R F Ceftriaxone Ceftriaxone S F Ciprofloxacin Ciprofloxacin S F Gentamicin Gentamicin S F Levofloxacin Levofloxacin S F Meropenem Meropenem S F Tetracycline Tetracycline S F Ticarcillin/Ca Ticarcillin/Ca S F Tobramycin Tobramycin S F Trimethoprim/Sulfameth oxazole Trimethoprim/Sulfameth oxazole R F Organism: 2.2 Antibiotic Interpretation DANILO Status Ciprofloxacin Ciprofloxacin S F Gentamicin Gentamicin S F Levofloxacin Levofloxacin S F Moxifloxacin Moxifloxacin S F Nitrofurantoin Nitrofurantoin S F Oxacillin Oxacillin S F Rifampin Rifampin S F Tetracycline Tetracycline S F Trimethoprim/Sulfameth oxazole Trimethoprim/Sulfameth oxazole S F Vancomycin Vancomycin S F Urine Culture Result 1 *ABNORMAL* Urine Culture Result 1 Acinetobacter lwoffii O:ACILWO Isolated O:CNSS Isolated Organism: 1.1 Antibiotic Interpretation DANILO Status Amikacin Amikacin S F Ampicillin/Sulbactam Ampicillin/Sulbactam S F Cefepime Cefepime R F Cefotaxime Cefotaxime R F Ceftazidime Ceftazidime R F Ceftriaxone Ceftriaxone S F Ciprofloxacin Ciprofloxacin S F Gentamicin Gentamicin S F Levofloxacin Levofloxacin S F Meropenem Meropenem S F Tetracycline Tetracycline S F Ticarcillin/Ca Ticarcillin/Ca S F Tobramycin Tobramycin S F Trimethoprim/Sulfameth oxazole Trimethoprim/Sulfameth oxazole R F Organism: 1.2 Antibiotic Interpretation DANILO Status Ciprofloxacin Ciprofloxacin S F Gentamicin Gentamicin S F Levofloxacin Levofloxacin S F Moxifloxacin Moxifloxacin S F Nitrofurantoin Nitrofurantoin S F Oxacillin Oxacillin S F Rifampin Rifampin S F Tetracycline Tetracycline S F Trimethoprim/Sulfameth oxazole Trimethoprim/Sulfameth oxazole S F Vancomycin Vancomycin S F Organism: 2.1 Antibiotic Interpretation DANILO Status Amikacin Amikacin S F Ampicillin/Sulbactam Ampicillin/Sulbactam S F Cefepime Cefepime R F Cefotaxime Cefotaxime R F Ceftazidime Ceftazidime R F Ceftriaxone Ceftriaxone S F Ciprofloxacin Ciprofloxacin S F Gentamicin Gentamicin S F Levofloxacin Levofloxacin S F Meropenem Meropenem S F Tetracycline Tetracycline S F Ticarcillin/Ca Ticarcillin/Ca S F Tobramycin Tobramycin S F Trimethoprim/Sulfameth oxazole Trimethoprim/Sulfameth oxazole R F Organism: 2.2 Antibiotic Interpretation DANILO Status Ciprofloxacin Ciprofloxacin S F Gentamicin Gentamicin S F Levofloxacin Levofloxacin S F Moxifloxacin Moxifloxacin S F Nitrofurantoin Nitrofurantoin S F Oxacillin Oxacillin S F Rifampin Rifampin S F Tetracycline Tetracycline S F Trimethoprim/Sulfameth oxazole Trimethoprim/Sulfameth oxazole S F Vancomycin Vancomycin S F Urine Culture Result 1 50,000-100,000 co lony forming units per mL Urine Culture Result 1 Acinetobacter lwoffii O:ACILWO Isolated O:CNSS Isolated Organism: 1.1 Antibiotic Interpretation DANILO Status Amikacin Amikacin S F Ampicillin/Sulbactam Ampicillin/Sulbactam S F Cefepime Cefepime R F Cefotaxime Cefotaxime R F Ceftazidime Ceftazidime R F Ceftriaxone Ceftriaxone S F Ciprofloxacin Ciprofloxacin S F Gentamicin Gentamicin S F Levofloxacin Levofloxacin S F Meropenem Meropenem S F Tetracycline Tetracycline S F Ticarcillin/Ca Ticarcillin/Ca S F Tobramycin Tobramycin S F Trimethoprim/Sulfameth oxazole Trimethoprim/Sulfameth oxazole R F Organism: 1.2 Antibiotic Interpretation DANILO Status Ciprofloxacin Ciprofloxacin S F Gentamicin Gentamicin S F Levofloxacin Levofloxacin S F Moxifloxacin Moxifloxacin S F Nitrofurantoin Nitrofurantoin S F Oxacillin Oxacillin S F Rifampin Rifampin S F Tetracycline Tetracycline S F Trimethoprim/Sulfameth oxazole Trimethoprim/Sulfameth oxazole S F Vancomycin Vancomycin S F Organism: 2.1 Antibiotic Interpretation DANILO Status Amikacin Amikacin S F Ampicillin/Sulbactam Ampicillin/Sulbactam S F Cefepime Cefepime R F Cefotaxime Cefotaxime R F Ceftazidime Ceftazidime R F Ceftriaxone Ceftriaxone S F Ciprofloxacin Ciprofloxacin S F Gentamicin Gentamicin S F Levofloxacin Levofloxacin S F Meropenem Meropenem S F Tetracycline Tetracycline S F Ticarcillin/Ca Ticarcillin/Ca S F Tobramycin Tobramycin S F Trimethoprim/Sulfameth oxazole Trimethoprim/Sulfameth oxazole R F Organism: 2.2 Antibiotic Interpretation DANILO Status Ciprofloxacin Ciprofloxacin S F Gentamicin Gentamicin S F Levofloxacin Levofloxacin S F Moxifloxacin Moxifloxacin S F Nitrofurantoin Nitrofurantoin S F Oxacillin Oxacillin S F Rifampin Rifampin S F Tetracycline Tetracycline S F Trimethoprim/Sulfameth oxazole Trimethoprim/Sulfameth oxazole S F Vancomycin Vancomycin S F Urine Culture Result 1 Urine Culture Result 1 Acinetobacter lwoffii O:ACILWO Isolated O:CNSS Isolated Organism: 1.1 Antibiotic Interpretation DANILO Status Amikacin Amikacin S F Ampicillin/Sulbactam Ampicillin/Sulbactam S F Cefepime Cefepime R F Cefotaxime Cefotaxime R F Ceftazidime Ceftazidime R F Ceftriaxone Ceftriaxone S F Ciprofloxacin Ciprofloxacin S F Gentamicin Gentamicin S F Levofloxacin Levofloxacin S F Meropenem Meropenem S F Tetracycline Tetracycline S F Ticarcillin/Ca Ticarcillin/Ca S F Tobramycin Tobramycin S F Trimethoprim/Sulfameth oxazole Trimethoprim/Sulfameth oxazole R F Organism: 1.2 Antibiotic Interpretation DANILO Status Ciprofloxacin Ciprofloxacin S F Gentamicin Gentamicin S F Levofloxacin Levofloxacin S F Moxifloxacin Moxifloxacin S F Nitrofurantoin Nitrofurantoin S F Oxacillin Oxacillin S F Rifampin Rifampin S F Tetracycline Tetracycline S F Trimethoprim/Sulfameth oxazole Trimethoprim/Sulfameth oxazole S F Vancomycin Vancomycin S F Organism: 2.1 Antibiotic Interpretation DANILO Status Amikacin Amikacin S F Ampicillin/Sulbactam Ampicillin/Sulbactam S F Cefepime Cefepime R F Cefotaxime Cefotaxime R F Ceftazidime Ceftazidime R F Ceftriaxone Ceftriaxone S F Ciprofloxacin Ciprofloxacin S F Gentamicin Gentamicin S F Levofloxacin Levofloxacin S F Meropenem Meropenem S F Tetracycline Tetracycline S F Ticarcillin/Ca Ticarcillin/Ca S F Tobramycin Tobramycin S F Trimethoprim/Sulfameth oxazole Trimethoprim/Sulfameth oxazole R F Organism: 2.2 Antibiotic Interpretation DANILO Status Ciprofloxacin Ciprofloxacin S F Gentamicin Gentamicin S F Levofloxacin Levofloxacin S F Moxifloxacin Moxifloxacin S F Nitrofurantoin Nitrofurantoin S F Oxacillin Oxacillin S F Rifampin Rifampin S F Tetracycline Tetracycline S F Trimethoprim/Sulfameth oxazole Trimethoprim/Sulfameth oxazole S F Vancomycin Vancomycin S F Urine Culture Result 1 Coag neg Staphylo coccus sp Urine Culture Result 1 Acinetobacter lwoffii O:ACILWO Isolated O:CNSS Isolated Organism: 1.1 Antibiotic Interpretation DANILO Status Amikacin Amikacin S F Ampicillin/Sulbactam Ampicillin/Sulbactam S F Cefepime Cefepime R F Cefotaxime Cefotaxime R F Ceftazidime Ceftazidime R F Ceftriaxone Ceftriaxone S F Ciprofloxacin Ciprofloxacin S F Gentamicin Gentamicin S F Levofloxacin Levofloxacin S F Meropenem Meropenem S F Tetracycline Tetracycline S F Ticarcillin/Ca Ticarcillin/Ca S F Tobramycin Tobramycin S F Trimethoprim/Sulfameth oxazole Trimethoprim/Sulfameth oxazole R F Organism: 1.2 Antibiotic Interpretation DANILO Status Ciprofloxacin Ciprofloxacin S F Gentamicin Gentamicin S F Levofloxacin Levofloxacin S F Moxifloxacin Moxifloxacin S F Nitrofurantoin Nitrofurantoin S F Oxacillin Oxacillin S F Rifampin Rifampin S F Tetracycline Tetracycline S F Trimethoprim/Sulfameth oxazole Trimethoprim/Sulfameth oxazole S F Vancomycin Vancomycin S F Organism: 2.1 Antibiotic Interpretation DANILO Status Amikacin Amikacin S F Ampicillin/Sulbactam Ampicillin/Sulbactam S F Cefepime Cefepime R F Cefotaxime Cefotaxime R F Ceftazidime Ceftazidime R F Ceftriaxone Ceftriaxone S F Ciprofloxacin Ciprofloxacin S F Gentamicin Gentamicin S F Levofloxacin Levofloxacin S F Meropenem Meropenem S F Tetracycline Tetracycline S F Ticarcillin/Ca Ticarcillin/Ca S F Tobramycin Tobramycin S F Trimethoprim/Sulfameth oxazole Trimethoprim/Sulfameth oxazole R F Organism: 2.2 Antibiotic Interpretation DANILO Status Ciprofloxacin Ciprofloxacin S F Gentamicin Gentamicin S F Levofloxacin Levofloxacin S F Moxifloxacin Moxifloxacin S F Nitrofurantoin Nitrofurantoin S F Oxacillin Oxacillin S F Rifampin Rifampin S F Tetracycline Tetracycline S F Trimethoprim/Sulfameth oxazole Trimethoprim/Sulfameth oxazole S F Vancomycin Vancomycin S F Urine Culture Result 1 *ABNORMAL* Urine Culture Result 1 Acinetobacter lwoffii O:ACILWO Isolated O:CNSS Isolated Organism: 1.1 Antibiotic Interpretation DANILO Status Amikacin Amikacin S F Ampicillin/Sulbactam Ampicillin/Sulbactam S F Cefepime Cefepime R F Cefotaxime Cefotaxime R F Ceftazidime Ceftazidime R F Ceftriaxone Ceftriaxone S F Ciprofloxacin Ciprofloxacin S F Gentamicin Gentamicin S F Levofloxacin Levofloxacin S F Meropenem Meropenem S F Tetracycline Tetracycline S F Ticarcillin/Ca Ticarcillin/Ca S F Tobramycin Tobramycin S F Trimethoprim/Sulfameth oxazole Trimethoprim/Sulfameth oxazole R F Organism: 1.2 Antibiotic Interpretation DANILO Status Ciprofloxacin Ciprofloxacin S F Gentamicin Gentamicin S F Levofloxacin Levofloxacin S F Moxifloxacin Moxifloxacin S F Nitrofurantoin Nitrofurantoin S F Oxacillin Oxacillin S F Rifampin Rifampin S F Tetracycline Tetracycline S F Trimethoprim/Sulfameth oxazole Trimethoprim/Sulfameth oxazole S F Vancomycin Vancomycin S F Organism: 2.1 Antibiotic Interpretation DANILO Status Amikacin Amikacin S F Ampicillin/Sulbactam Ampicillin/Sulbactam S F Cefepime Cefepime R F Cefotaxime Cefotaxime R F Ceftazidime Ceftazidime R F Ceftriaxone Ceftriaxone S F Ciprofloxacin Ciprofloxacin S F Gentamicin Gentamicin S F Levofloxacin Levofloxacin S F Meropenem Meropenem S F Tetracycline Tetracycline S F Ticarcillin/Ca Ticarcillin/Ca S F Tobramycin Tobramycin S F Trimethoprim/Sulfameth oxazole Trimethoprim/Sulfameth oxazole R F Organism: 2.2 Antibiotic Interpretation DANILO Status Ciprofloxacin Ciprofloxacin S F Gentamicin Gentamicin S F Levofloxacin Levofloxacin S F Moxifloxacin Moxifloxacin S F Nitrofurantoin Nitrofurantoin S F Oxacillin Oxacillin S F Rifampin Rifampin S F Tetracycline Tetracycline S F Trimethoprim/Sulfameth oxazole Trimethoprim/Sulfameth oxazole S F Vancomycin Vancomycin S F Urine Culture Result 1 Based on suscepti bility to oxacillin this isolate would be Urine Culture Result 1 Acinetobacter lwoffii O:ACILWO Isolated O:CNSS Isolated Organism: 1.1 Antibiotic Interpretation DANILO Status Amikacin Amikacin S F Ampicillin/Sulbactam Ampicillin/Sulbactam S F Cefepime Cefepime R F Cefotaxime Cefotaxime R F Ceftazidime Ceftazidime R F Ceftriaxone Ceftriaxone S F Ciprofloxacin Ciprofloxacin S F Gentamicin Gentamicin S F Levofloxacin Levofloxacin S F Meropenem Meropenem S F Tetracycline Tetracycline S F Ticarcillin/Ca Ticarcillin/Ca S F Tobramycin Tobramycin S F Trimethoprim/Sulfameth oxazole Trimethoprim/Sulfameth oxazole R F Organism: 1.2 Antibiotic Interpretation DANILO Status Ciprofloxacin Ciprofloxacin S F Gentamicin Gentamicin S F Levofloxacin Levofloxacin S F Moxifloxacin Moxifloxacin S F Nitrofurantoin Nitrofurantoin S F Oxacillin Oxacillin S F Rifampin Rifampin S F Tetracycline Tetracycline S F Trimethoprim/Sulfameth oxazole Trimethoprim/Sulfameth oxazole S F Vancomycin Vancomycin S F Organism: 2.1 Antibiotic Interpretation DANILO Status Amikacin Amikacin S F Ampicillin/Sulbactam Ampicillin/Sulbactam S F Cefepime Cefepime R F Cefotaxime Cefotaxime R F Ceftazidime Ceftazidime R F Ceftriaxone Ceftriaxone S F Ciprofloxacin Ciprofloxacin S F Gentamicin Gentamicin S F Levofloxacin Levofloxacin S F Meropenem Meropenem S F Tetracycline Tetracycline S F Ticarcillin/Ca Ticarcillin/Ca S F Tobramycin Tobramycin S F Trimethoprim/Sulfameth oxazole Trimethoprim/Sulfameth oxazole R F Organism: 2.2 Antibiotic Interpretation DANILO Status Ciprofloxacin Ciprofloxacin S F Gentamicin Gentamicin S F Levofloxacin Levofloxacin S F Moxifloxacin Moxifloxacin S F Nitrofurantoin Nitrofurantoin S F Oxacillin Oxacillin S F Rifampin Rifampin S F Tetracycline Tetracycline S F Trimethoprim/Sulfameth oxazole Trimethoprim/Sulfameth oxazole S F Vancomycin Vancomycin S F Urine Culture Result 1 susceptible to: Urine Culture Result 1 Acinetobacter lwoffii O:ACILWO Isolated O:CNSS Isolated Organism: 1.1 Antibiotic Interpretation DANILO Status Amikacin Amikacin S F Ampicillin/Sulbactam Ampicillin/Sulbactam S F Cefepime Cefepime R F Cefotaxime Cefotaxime R F Ceftazidime Ceftazidime R F Ceftriaxone Ceftriaxone S F Ciprofloxacin Ciprofloxacin S F Gentamicin Gentamicin S F Levofloxacin Levofloxacin S F Meropenem Meropenem S F Tetracycline Tetracycline S F Ticarcillin/Ca Ticarcillin/Ca S F Tobramycin Tobramycin S F Trimethoprim/Sulfameth oxazole Trimethoprim/Sulfameth oxazole R F Organism: 1.2 Antibiotic Interpretation DANILO Status Ciprofloxacin Ciprofloxacin S F Gentamicin Gentamicin S F Levofloxacin Levofloxacin S F Moxifloxacin Moxifloxacin S F Nitrofurantoin Nitrofurantoin S F Oxacillin Oxacillin S F Rifampin Rifampin S F Tetracycline Tetracycline S F Trimethoprim/Sulfameth oxazole Trimethoprim/Sulfameth oxazole S F Vancomycin Vancomycin S F Organism: 2.1 Antibiotic Interpretation DANILO Status Amikacin Amikacin S F Ampicillin/Sulbactam Ampicillin/Sulbactam S F Cefepime Cefepime R F Cefotaxime Cefotaxime R F Ceftazidime Ceftazidime R F Ceftriaxone Ceftriaxone S F Ciprofloxacin Ciprofloxacin S F Gentamicin Gentamicin S F Levofloxacin Levofloxacin S F Meropenem Meropenem S F Tetracycline Tetracycline S F Ticarcillin/Ca Ticarcillin/Ca S F Tobramycin Tobramycin S F Trimethoprim/Sulfameth oxazole Trimethoprim/Sulfameth oxazole R F Organism: 2.2 Antibiotic Interpretation DANILO Status Ciprofloxacin Ciprofloxacin S F Gentamicin Gentamicin S F Levofloxacin Levofloxacin S F Moxifloxacin Moxifloxacin S F Nitrofurantoin Nitrofurantoin S F Oxacillin Oxacillin S F Rifampin Rifampin S F Tetracycline Tetracycline S F Trimethoprim/Sulfameth oxazole Trimethoprim/Sulfameth oxazole S F Vancomycin Vancomycin S F Urine Culture Result 1 *Penicillinase-st able penicillins, such as: Urine Culture Result 1 Acinetobacter lwoffii O:ACILWO Isolated O:CNSS Isolated Organism: 1.1 Antibiotic Interpretation DANILO Status Amikacin Amikacin S F Ampicillin/Sulbactam Ampicillin/Sulbactam S F Cefepime Cefepime R F Cefotaxime Cefotaxime R F Ceftazidime Ceftazidime R F Ceftriaxone Ceftriaxone S F Ciprofloxacin Ciprofloxacin S F Gentamicin Gentamicin S F Levofloxacin Levofloxacin S F Meropenem Meropenem S F Tetracycline Tetracycline S F Ticarcillin/Ca Ticarcillin/Ca S F Tobramycin Tobramycin S F Trimethoprim/Sulfameth oxazole Trimethoprim/Sulfameth oxazole R F Organism: 1.2 Antibiotic Interpretation DANILO Status Ciprofloxacin Ciprofloxacin S F Gentamicin Gentamicin S F Levofloxacin Levofloxacin S F Moxifloxacin Moxifloxacin S F Nitrofurantoin Nitrofurantoin S F Oxacillin Oxacillin S F Rifampin Rifampin S F Tetracycline Tetracycline S F Trimethoprim/Sulfameth oxazole Trimethoprim/Sulfameth oxazole S F Vancomycin Vancomycin S F Organism: 2.1 Antibiotic Interpretation DANILO Status Amikacin Amikacin S F Ampicillin/Sulbactam Ampicillin/Sulbactam S F Cefepime Cefepime R F Cefotaxime Cefotaxime R F Ceftazidime Ceftazidime R F Ceftriaxone Ceftriaxone S F Ciprofloxacin Ciprofloxacin S F Gentamicin Gentamicin S F Levofloxacin Levofloxacin S F Meropenem Meropenem S F Tetracycline Tetracycline S F Ticarcillin/Ca Ticarcillin/Ca S F Tobramycin Tobramycin S F Trimethoprim/Sulfameth oxazole Trimethoprim/Sulfameth oxazole R F Organism: 2.2 Antibiotic Interpretation DANILO Status Ciprofloxacin Ciprofloxacin S F Gentamicin Gentamicin S F Levofloxacin Levofloxacin S F Moxifloxacin Moxifloxacin S F Nitrofurantoin Nitrofurantoin S F Oxacillin Oxacillin S F Rifampin Rifampin S F Tetracycline Tetracycline S F Trimethoprim/Sulfameth oxazole Trimethoprim/Sulfameth oxazole S F Vancomycin Vancomycin S F Urine Culture Result 1 Cloxacillin, Dicloxacillin, Nafcillin Urine Culture Result 1 Acinetobacter lwoffii O:ACILWO Isolated O:CNSS Isolated Organism: 1.1 Antibiotic Interpretation DANILO Status Amikacin Amikacin S F Ampicillin/Sulbactam Ampicillin/Sulbactam S F Cefepime Cefepime R F Cefotaxime Cefotaxime R F Ceftazidime Ceftazidime R F Ceftriaxone Ceftriaxone S F Ciprofloxacin Ciprofloxacin S F Gentamicin Gentamicin S F Levofloxacin Levofloxacin S F Meropenem Meropenem S F Tetracycline Tetracycline S F Ticarcillin/Ca Ticarcillin/Ca S F Tobramycin Tobramycin S F Trimethoprim/Sulfameth oxazole Trimethoprim/Sulfameth oxazole R F Organism: 1.2 Antibiotic Interpretation DANILO Status Ciprofloxacin Ciprofloxacin S F Gentamicin Gentamicin S F Levofloxacin Levofloxacin S F Moxifloxacin Moxifloxacin S F Nitrofurantoin Nitrofurantoin S F Oxacillin Oxacillin S F Rifampin Rifampin S F Tetracycline Tetracycline S F Trimethoprim/Sulfameth oxazole Trimethoprim/Sulfameth oxazole S F Vancomycin Vancomycin S F Organism: 2.1 Antibiotic Interpretation DANILO Status Amikacin Amikacin S F Ampicillin/Sulbactam Ampicillin/Sulbactam S F Cefepime Cefepime R F Cefotaxime Cefotaxime R F Ceftazidime Ceftazidime R F Ceftriaxone Ceftriaxone S F Ciprofloxacin Ciprofloxacin S F Gentamicin Gentamicin S F Levofloxacin Levofloxacin S F Meropenem Meropenem S F Tetracycline Tetracycline S F Ticarcillin/Ca Ticarcillin/Ca S F Tobramycin Tobramycin S F Trimethoprim/Sulfameth oxazole Trimethoprim/Sulfameth oxazole R F Organism: 2.2 Antibiotic Interpretation DANILO Status Ciprofloxacin Ciprofloxacin S F Gentamicin Gentamicin S F Levofloxacin Levofloxacin S F Moxifloxacin Moxifloxacin S F Nitrofurantoin Nitrofurantoin S F Oxacillin Oxacillin S F Rifampin Rifampin S F Tetracycline Tetracycline S F Trimethoprim/Sulfameth oxazole Trimethoprim/Sulfameth oxazole S F Vancomycin Vancomycin S F Urine Culture Result 1 *Beta-lactam combination agents, such as: Urine Culture Result 1 Acinetobacter lwoffii O:ACILWO Isolated O:CNSS Isolated Organism: 1.1 Antibiotic Interpretation DANILO Status Amikacin Amikacin S F Ampicillin/Sulbactam Ampicillin/Sulbactam S F Cefepime Cefepime R F Cefotaxime Cefotaxime R F Ceftazidime Ceftazidime R F Ceftriaxone Ceftriaxone S F Ciprofloxacin Ciprofloxacin S F Gentamicin Gentamicin S F Levofloxacin Levofloxacin S F Meropenem Meropenem S F Tetracycline Tetracycline S F Ticarcillin/Ca Ticarcillin/Ca S F Tobramycin Tobramycin S F Trimethoprim/Sulfameth oxazole Trimethoprim/Sulfameth oxazole R F Organism: 1.2 Antibiotic Interpretation DANILO Status Ciprofloxacin Ciprofloxacin S F Gentamicin Gentamicin S F Levofloxacin Levofloxacin S F Moxifloxacin Moxifloxacin S F Nitrofurantoin Nitrofurantoin S F Oxacillin Oxacillin S F Rifampin Rifampin S F Tetracycline Tetracycline S F Trimethoprim/Sulfameth oxazole Trimethoprim/Sulfameth oxazole S F Vancomycin Vancomycin S F Organism: 2.1 Antibiotic Interpretation DANILO Status Amikacin Amikacin S F Ampicillin/Sulbactam Ampicillin/Sulbactam S F Cefepime Cefepime R F Cefotaxime Cefotaxime R F Ceftazidime Ceftazidime R F Ceftriaxone Ceftriaxone S F Ciprofloxacin Ciprofloxacin S F Gentamicin Gentamicin S F Levofloxacin Levofloxacin S F Meropenem Meropenem S F Tetracycline Tetracycline S F Ticarcillin/Ca Ticarcillin/Ca S F Tobramycin Tobramycin S F Trimethoprim/Sulfameth oxazole Trimethoprim/Sulfameth oxazole R F Organism: 2.2 Antibiotic Interpretation DANILO Status Ciprofloxacin Ciprofloxacin S F Gentamicin Gentamicin S F Levofloxacin Levofloxacin S F Moxifloxacin Moxifloxacin S F Nitrofurantoin Nitrofurantoin S F Oxacillin Oxacillin S F Rifampin Rifampin S F Tetracycline Tetracycline S F Trimethoprim/Sulfameth oxazole Trimethoprim/Sulfameth oxazole S F Vancomycin Vancomycin S F Urine Culture Result 1 Amoxicillin-clavu lanic acid, Ampicillin-sulbactam, Urine Culture Result 1 Acinetobacter lwoffii O:ACILWO Isolated O:CNSS Isolated Organism: 1.1 Antibiotic Interpretation DANILO Status Amikacin Amikacin S F Ampicillin/Sulbactam Ampicillin/Sulbactam S F Cefepime Cefepime R F Cefotaxime Cefotaxime R F Ceftazidime Ceftazidime R F Ceftriaxone Ceftriaxone S F Ciprofloxacin Ciprofloxacin S F Gentamicin Gentamicin S F Levofloxacin Levofloxacin S F Meropenem Meropenem S F Tetracycline Tetracycline S F Ticarcillin/Ca Ticarcillin/Ca S F Tobramycin Tobramycin S F Trimethoprim/Sulfameth oxazole Trimethoprim/Sulfameth oxazole R F Organism: 1.2 Antibiotic Interpretation DANILO Status Ciprofloxacin Ciprofloxacin S F Gentamicin Gentamicin S F Levofloxacin Levofloxacin S F Moxifloxacin Moxifloxacin S F Nitrofurantoin Nitrofurantoin S F Oxacillin Oxacillin S F Rifampin Rifampin S F Tetracycline Tetracycline S F Trimethoprim/Sulfameth oxazole Trimethoprim/Sulfameth oxazole S F Vancomycin Vancomycin S F Organism: 2.1 Antibiotic Interpretation DANILO Status Amikacin Amikacin S F Ampicillin/Sulbactam Ampicillin/Sulbactam S F Cefepime Cefepime R F Cefotaxime Cefotaxime R F Ceftazidime Ceftazidime R F Ceftriaxone Ceftriaxone S F Ciprofloxacin Ciprofloxacin S F Gentamicin Gentamicin S F Levofloxacin Levofloxacin S F Meropenem Meropenem S F Tetracycline Tetracycline S F Ticarcillin/Ca Ticarcillin/Ca S F Tobramycin Tobramycin S F Trimethoprim/Sulfameth oxazole Trimethoprim/Sulfameth oxazole R F Organism: 2.2 Antibiotic Interpretation DANILO Status Ciprofloxacin Ciprofloxacin S F Gentamicin Gentamicin S F Levofloxacin Levofloxacin S F Moxifloxacin Moxifloxacin S F Nitrofurantoin Nitrofurantoin S F Oxacillin Oxacillin S F Rifampin Rifampin S F Tetracycline Tetracycline S F Trimethoprim/Sulfameth oxazole Trimethoprim/Sulfameth oxazole S F Vancomycin Vancomycin S F Urine Culture Result 1 Piperacillin-tazobactam Urine Culture Result 1 Acinetobacter lwoffii O:ACILWO Isolated O:CNSS Isolated Organism: 1.1 Antibiotic Interpretation DANILO Status Amikacin Amikacin S F Ampicillin/Sulbactam Ampicillin/Sulbactam S F Cefepime Cefepime R F Cefotaxime Cefotaxime R F Ceftazidime Ceftazidime R F Ceftriaxone Ceftriaxone S F Ciprofloxacin Ciprofloxacin S F Gentamicin Gentamicin S F Levofloxacin Levofloxacin S F Meropenem Meropenem S F Tetracycline Tetracycline S F Ticarcillin/Ca Ticarcillin/Ca S F Tobramycin Tobramycin S F Trimethoprim/Sulfameth oxazole Trimethoprim/Sulfameth oxazole R F Organism: 1.2 Antibiotic Interpretation DANILO Status Ciprofloxacin Ciprofloxacin S F Gentamicin Gentamicin S F Levofloxacin Levofloxacin S F Moxifloxacin Moxifloxacin S F Nitrofurantoin Nitrofurantoin S F Oxacillin Oxacillin S F Rifampin Rifampin S F Tetracycline Tetracycline S F Trimethoprim/Sulfameth oxazole Trimethoprim/Sulfameth oxazole S F Vancomycin Vancomycin S F Organism: 2.1 Antibiotic Interpretation DANILO Status Amikacin Amikacin S F Ampicillin/Sulbactam Ampicillin/Sulbactam S F Cefepime Cefepime R F Cefotaxime Cefotaxime R F Ceftazidime Ceftazidime R F Ceftriaxone Ceftriaxone S F Ciprofloxacin Ciprofloxacin S F Gentamicin Gentamicin S F Levofloxacin Levofloxacin S F Meropenem Meropenem S F Tetracycline Tetracycline S F Ticarcillin/Ca Ticarcillin/Ca S F Tobramycin Tobramycin S F Trimethoprim/Sulfameth oxazole Trimethoprim/Sulfameth oxazole R F Organism: 2.2 Antibiotic Interpretation DANILO Status Ciprofloxacin Ciprofloxacin S F Gentamicin Gentamicin S F Levofloxacin Levofloxacin S F Moxifloxacin Moxifloxacin S F Nitrofurantoin Nitrofurantoin S F Oxacillin Oxacillin S F Rifampin Rifampin S F Tetracycline Tetracycline S F Trimethoprim/Sulfameth oxazole Trimethoprim/Sulfameth oxazole S F Vancomycin Vancomycin S F Urine Culture Result 1 *Oral cephems, such as: Urine Culture Result 1 Acinetobacter lwoffii O:ACILWO Isolated O:CNSS Isolated Organism: 1.1 Antibiotic Interpretation DANILO Status Amikacin Amikacin S F Ampicillin/Sulbactam Ampicillin/Sulbactam S F Cefepime Cefepime R F Cefotaxime Cefotaxime R F Ceftazidime Ceftazidime R F Ceftriaxone Ceftriaxone S F Ciprofloxacin Ciprofloxacin S F Gentamicin Gentamicin S F Levofloxacin Levofloxacin S F Meropenem Meropenem S F Tetracycline Tetracycline S F Ticarcillin/Ca Ticarcillin/Ca S F Tobramycin Tobramycin S F Trimethoprim/Sulfameth oxazole Trimethoprim/Sulfameth oxazole R F Organism: 1.2 Antibiotic Interpretation DANILO Status Ciprofloxacin Ciprofloxacin S F Gentamicin Gentamicin S F Levofloxacin Levofloxacin S F Moxifloxacin Moxifloxacin S F Nitrofurantoin Nitrofurantoin S F Oxacillin Oxacillin S F Rifampin Rifampin S F Tetracycline Tetracycline S F Trimethoprim/Sulfameth oxazole Trimethoprim/Sulfameth oxazole S F Vancomycin Vancomycin S F Organism: 2.1 Antibiotic Interpretation DANILO Status Amikacin Amikacin S F Ampicillin/Sulbactam Ampicillin/Sulbactam S F Cefepime Cefepime R F Cefotaxime Cefotaxime R F Ceftazidime Ceftazidime R F Ceftriaxone Ceftriaxone S F Ciprofloxacin Ciprofloxacin S F Gentamicin Gentamicin S F Levofloxacin Levofloxacin S F Meropenem Meropenem S F Tetracycline Tetracycline S F Ticarcillin/Ca Ticarcillin/Ca S F Tobramycin Tobramycin S F Trimethoprim/Sulfameth oxazole Trimethoprim/Sulfameth oxazole R F Organism: 2.2 Antibiotic Interpretation DANILO Status Ciprofloxacin Ciprofloxacin S F Gentamicin Gentamicin S F Levofloxacin Levofloxacin S F Moxifloxacin Moxifloxacin S F Nitrofurantoin Nitrofurantoin S F Oxacillin Oxacillin S F Rifampin Rifampin S F Tetracycline Tetracycline S F Trimethoprim/Sulfameth oxazole Trimethoprim/Sulfameth oxazole S F Vancomycin Vancomycin S F Urine Culture Result 1 Cefaclor, Cefdini r, Cefpodoxime, Cefprozil, Cefuroxime, Urine Culture Result 1 Acinetobacter lwoffii O:ACILWO Isolated O:CNSS Isolated Organism: 1.1 Antibiotic Interpretation DANILO Status Amikacin Amikacin S F Ampicillin/Sulbactam Ampicillin/Sulbactam S F Cefepime Cefepime R F Cefotaxime Cefotaxime R F Ceftazidime Ceftazidime R F Ceftriaxone Ceftriaxone S F Ciprofloxacin Ciprofloxacin S F Gentamicin Gentamicin S F Levofloxacin Levofloxacin S F Meropenem Meropenem S F Tetracycline Tetracycline S F Ticarcillin/Ca Ticarcillin/Ca S F Tobramycin Tobramycin S F Trimethoprim/Sulfameth oxazole Trimethoprim/Sulfameth oxazole R F Organism: 1.2 Antibiotic Interpretation DANILO Status Ciprofloxacin Ciprofloxacin S F Gentamicin Gentamicin S F Levofloxacin Levofloxacin S F Moxifloxacin Moxifloxacin S F Nitrofurantoin Nitrofurantoin S F Oxacillin Oxacillin S F Rifampin Rifampin S F Tetracycline Tetracycline S F Trimethoprim/Sulfameth oxazole Trimethoprim/Sulfameth oxazole S F Vancomycin Vancomycin S F Organism: 2.1 Antibiotic Interpretation DANILO Status Amikacin Amikacin S F Ampicillin/Sulbactam Ampicillin/Sulbactam S F Cefepime Cefepime R F Cefotaxime Cefotaxime R F Ceftazidime Ceftazidime R F Ceftriaxone Ceftriaxone S F Ciprofloxacin Ciprofloxacin S F Gentamicin Gentamicin S F Levofloxacin Levofloxacin S F Meropenem Meropenem S F Tetracycline Tetracycline S F Ticarcillin/Ca Ticarcillin/Ca S F Tobramycin Tobramycin S F Trimethoprim/Sulfameth oxazole Trimethoprim/Sulfameth oxazole R F Organism: 2.2 Antibiotic Interpretation DANILO Status Ciprofloxacin Ciprofloxacin S F Gentamicin Gentamicin S F Levofloxacin Levofloxacin S F Moxifloxacin Moxifloxacin S F Nitrofurantoin Nitrofurantoin S F Oxacillin Oxacillin S F Rifampin Rifampin S F Tetracycline Tetracycline S F Trimethoprim/Sulfameth oxazole Trimethoprim/Sulfameth oxazole S F Vancomycin Vancomycin S F Urine Culture Result 1 Cephalexin, Loracarbef Urine Culture Result 1 Acinetobacter lwoffii O:ACILWO Isolated O:CNSS Isolated Organism: 1.1 Antibiotic Interpretation DANILO Status Amikacin Amikacin S F Ampicillin/Sulbactam Ampicillin/Sulbactam S F Cefepime Cefepime R F Cefotaxime Cefotaxime R F Ceftazidime Ceftazidime R F Ceftriaxone Ceftriaxone S F Ciprofloxacin Ciprofloxacin S F Gentamicin Gentamicin S F Levofloxacin Levofloxacin S F Meropenem Meropenem S F Tetracycline Tetracycline S F Ticarcillin/Ca Ticarcillin/Ca S F Tobramycin Tobramycin S F Trimethoprim/Sulfameth oxazole Trimethoprim/Sulfameth oxazole R F Organism: 1.2 Antibiotic Interpretation DANILO Status Ciprofloxacin Ciprofloxacin S F Gentamicin Gentamicin S F Levofloxacin Levofloxacin S F Moxifloxacin Moxifloxacin S F Nitrofurantoin Nitrofurantoin S F Oxacillin Oxacillin S F Rifampin Rifampin S F Tetracycline Tetracycline S F Trimethoprim/Sulfameth oxazole Trimethoprim/Sulfameth oxazole S F Vancomycin Vancomycin S F Organism: 2.1 Antibiotic Interpretation DANILO Status Amikacin Amikacin S F Ampicillin/Sulbactam Ampicillin/Sulbactam S F Cefepime Cefepime R F Cefotaxime Cefotaxime R F Ceftazidime Ceftazidime R F Ceftriaxone Ceftriaxone S F Ciprofloxacin Ciprofloxacin S F Gentamicin Gentamicin S F Levofloxacin Levofloxacin S F Meropenem Meropenem S F Tetracycline Tetracycline S F Ticarcillin/Ca Ticarcillin/Ca S F Tobramycin Tobramycin S F Trimethoprim/Sulfameth oxazole Trimethoprim/Sulfameth oxazole R F Organism: 2.2 Antibiotic Interpretation DANILO Status Ciprofloxacin Ciprofloxacin S F Gentamicin Gentamicin S F Levofloxacin Levofloxacin S F Moxifloxacin Moxifloxacin S F Nitrofurantoin Nitrofurantoin S F Oxacillin Oxacillin S F Rifampin Rifampin S F Tetracycline Tetracycline S F Trimethoprim/Sulfameth oxazole Trimethoprim/Sulfameth oxazole S F Vancomycin Vancomycin S F Urine Culture Result 1 *Parenteral cephe ms, such as: Urine Culture Result 1 Acinetobacter lwoffii O:ACILWO Isolated O:CNSS Isolated Organism: 1.1 Antibiotic Interpretation DANILO Status Amikacin Amikacin S F Ampicillin/Sulbactam Ampicillin/Sulbactam S F Cefepime Cefepime R F Cefotaxime Cefotaxime R F Ceftazidime Ceftazidime R F Ceftriaxone Ceftriaxone S F Ciprofloxacin Ciprofloxacin S F Gentamicin Gentamicin S F Levofloxacin Levofloxacin S F Meropenem Meropenem S F Tetracycline Tetracycline S F Ticarcillin/Ca Ticarcillin/Ca S F Tobramycin Tobramycin S F Trimethoprim/Sulfameth oxazole Trimethoprim/Sulfameth oxazole R F Organism: 1.2 Antibiotic Interpretation DANILO Status Ciprofloxacin Ciprofloxacin S F Gentamicin Gentamicin S F Levofloxacin Levofloxacin S F Moxifloxacin Moxifloxacin S F Nitrofurantoin Nitrofurantoin S F Oxacillin Oxacillin S F Rifampin Rifampin S F Tetracycline Tetracycline S F Trimethoprim/Sulfameth oxazole Trimethoprim/Sulfameth oxazole S F Vancomycin Vancomycin S F Organism: 2.1 Antibiotic Interpretation DANILO Status Amikacin Amikacin S F Ampicillin/Sulbactam Ampicillin/Sulbactam S F Cefepime Cefepime R F Cefotaxime Cefotaxime R F Ceftazidime Ceftazidime R F Ceftriaxone Ceftriaxone S F Ciprofloxacin Ciprofloxacin S F Gentamicin Gentamicin S F Levofloxacin Levofloxacin S F Meropenem Meropenem S F Tetracycline Tetracycline S F Ticarcillin/Ca Ticarcillin/Ca S F Tobramycin Tobramycin S F Trimethoprim/Sulfameth oxazole Trimethoprim/Sulfameth oxazole R F Organism: 2.2 Antibiotic Interpretation DANILO Status Ciprofloxacin Ciprofloxacin S F Gentamicin Gentamicin S F Levofloxacin Levofloxacin S F Moxifloxacin Moxifloxacin S F Nitrofurantoin Nitrofurantoin S F Oxacillin Oxacillin S F Rifampin Rifampin S F Tetracycline Tetracycline S F Trimethoprim/Sulfameth oxazole Trimethoprim/Sulfameth oxazole S F Vancomycin Vancomycin S F Urine Culture Result 1 Cefazolin, Cefepi me, Cefotaxime, Cefotetan, Ceftaroline, Urine Culture Result 1 Acinetobacter lwoffii O:ACILWO Isolated O:CNSS Isolated Organism: 1.1 Antibiotic Interpretation DANILO Status Amikacin Amikacin S F Ampicillin/Sulbactam Ampicillin/Sulbactam S F Cefepime Cefepime R F Cefotaxime Cefotaxime R F Ceftazidime Ceftazidime R F Ceftriaxone Ceftriaxone S F Ciprofloxacin Ciprofloxacin S F Gentamicin Gentamicin S F Levofloxacin Levofloxacin S F Meropenem Meropenem S F Tetracycline Tetracycline S F Ticarcillin/Ca Ticarcillin/Ca S F Tobramycin Tobramycin S F Trimethoprim/Sulfameth oxazole Trimethoprim/Sulfameth oxazole R F Organism: 1.2 Antibiotic Interpretation DANILO Status Ciprofloxacin Ciprofloxacin S F Gentamicin Gentamicin S F Levofloxacin Levofloxacin S F Moxifloxacin Moxifloxacin S F Nitrofurantoin Nitrofurantoin S F Oxacillin Oxacillin S F Rifampin Rifampin S F Tetracycline Tetracycline S F Trimethoprim/Sulfameth oxazole Trimethoprim/Sulfameth oxazole S F Vancomycin Vancomycin S F Organism: 2.1 Antibiotic Interpretation DANILO Status Amikacin Amikacin S F Ampicillin/Sulbactam Ampicillin/Sulbactam S F Cefepime Cefepime R F Cefotaxime Cefotaxime R F Ceftazidime Ceftazidime R F Ceftriaxone Ceftriaxone S F Ciprofloxacin Ciprofloxacin S F Gentamicin Gentamicin S F Levofloxacin Levofloxacin S F Meropenem Meropenem S F Tetracycline Tetracycline S F Ticarcillin/Ca Ticarcillin/Ca S F Tobramycin Tobramycin S F Trimethoprim/Sulfameth oxazole Trimethoprim/Sulfameth oxazole R F Organism: 2.2 Antibiotic Interpretation DANILO Status Ciprofloxacin Ciprofloxacin S F Gentamicin Gentamicin S F Levofloxacin Levofloxacin S F Moxifloxacin Moxifloxacin S F Nitrofurantoin Nitrofurantoin S F Oxacillin Oxacillin S F Rifampin Rifampin S F Tetracycline Tetracycline S F Trimethoprim/Sulfameth oxazole Trimethoprim/Sulfameth oxazole S F Vancomycin Vancomycin S F Urine Culture Result 1 Ceftizoxime, Ceftriaxone, Cefuroxime Urine Culture Result 1 Acinetobacter lwoffii O:ACILWO Isolated O:CNSS Isolated Organism: 1.1 Antibiotic Interpretation DANILO Status Amikacin Amikacin S F Ampicillin/Sulbactam Ampicillin/Sulbactam S F Cefepime Cefepime R F Cefotaxime Cefotaxime R F Ceftazidime Ceftazidime R F Ceftriaxone Ceftriaxone S F Ciprofloxacin Ciprofloxacin S F Gentamicin Gentamicin S F Levofloxacin Levofloxacin S F Meropenem Meropenem S F Tetracycline Tetracycline S F Ticarcillin/Ca Ticarcillin/Ca S F Tobramycin Tobramycin S F Trimethoprim/Sulfameth oxazole Trimethoprim/Sulfameth oxazole R F Organism: 1.2 Antibiotic Interpretation DANILO Status Ciprofloxacin Ciprofloxacin S F Gentamicin Gentamicin S F Levofloxacin Levofloxacin S F Moxifloxacin Moxifloxacin S F Nitrofurantoin Nitrofurantoin S F Oxacillin Oxacillin S F Rifampin Rifampin S F Tetracycline Tetracycline S F Trimethoprim/Sulfameth oxazole Trimethoprim/Sulfameth oxazole S F Vancomycin Vancomycin S F Organism: 2.1 Antibiotic Interpretation DANILO Status Amikacin Amikacin S F Ampicillin/Sulbactam Ampicillin/Sulbactam S F Cefepime Cefepime R F Cefotaxime Cefotaxime R F Ceftazidime Ceftazidime R F Ceftriaxone Ceftriaxone S F Ciprofloxacin Ciprofloxacin S F Gentamicin Gentamicin S F Levofloxacin Levofloxacin S F Meropenem Meropenem S F Tetracycline Tetracycline S F Ticarcillin/Ca Ticarcillin/Ca S F Tobramycin Tobramycin S F Trimethoprim/Sulfameth oxazole Trimethoprim/Sulfameth oxazole R F Organism: 2.2 Antibiotic Interpretation DANILO Status Ciprofloxacin Ciprofloxacin S F Gentamicin Gentamicin S F Levofloxacin Levofloxacin S F Moxifloxacin Moxifloxacin S F Nitrofurantoin Nitrofurantoin S F Oxacillin Oxacillin S F Rifampin Rifampin S F Tetracycline Tetracycline S F Trimethoprim/Sulfameth oxazole Trimethoprim/Sulfameth oxazole S F Vancomycin Vancomycin S F Urine Culture Result 1 *Carbapenems, such as: Urine Culture Result 1 Acinetobacter lwoffii O:ACILWO Isolated O:CNSS Isolated Organism: 1.1 Antibiotic Interpretation DANILO Status Amikacin Amikacin S F Ampicillin/Sulbactam Ampicillin/Sulbactam S F Cefepime Cefepime R F Cefotaxime Cefotaxime R F Ceftazidime Ceftazidime R F Ceftriaxone Ceftriaxone S F Ciprofloxacin Ciprofloxacin S F Gentamicin Gentamicin S F Levofloxacin Levofloxacin S F Meropenem Meropenem S F Tetracycline Tetracycline S F Ticarcillin/Ca Ticarcillin/Ca S F Tobramycin Tobramycin S F Trimethoprim/Sulfameth oxazole Trimethoprim/Sulfameth oxazole R F Organism: 1.2 Antibiotic Interpretation DANILO Status Ciprofloxacin Ciprofloxacin S F Gentamicin Gentamicin S F Levofloxacin Levofloxacin S F Moxifloxacin Moxifloxacin S F Nitrofurantoin Nitrofurantoin S F Oxacillin Oxacillin S F Rifampin Rifampin S F Tetracycline Tetracycline S F Trimethoprim/Sulfameth oxazole Trimethoprim/Sulfameth oxazole S F Vancomycin Vancomycin S F Organism: 2.1 Antibiotic Interpretation DANILO Status Amikacin Amikacin S F Ampicillin/Sulbactam Ampicillin/Sulbactam S F Cefepime Cefepime R F Cefotaxime Cefotaxime R F Ceftazidime Ceftazidime R F Ceftriaxone Ceftriaxone S F Ciprofloxacin Ciprofloxacin S F Gentamicin Gentamicin S F Levofloxacin Levofloxacin S F Meropenem Meropenem S F Tetracycline Tetracycline S F Ticarcillin/Ca Ticarcillin/Ca S F Tobramycin Tobramycin S F Trimethoprim/Sulfameth oxazole Trimethoprim/Sulfameth oxazole R F Organism: 2.2 Antibiotic Interpretation DANILO Status Ciprofloxacin Ciprofloxacin S F Gentamicin Gentamicin S F Levofloxacin Levofloxacin S F Moxifloxacin Moxifloxacin S F Nitrofurantoin Nitrofurantoin S F Oxacillin Oxacillin S F Rifampin Rifampin S F Tetracycline Tetracycline S F Trimethoprim/Sulfameth oxazole Trimethoprim/Sulfameth oxazole S F Vancomycin Vancomycin S F Urine Culture Result 1 Doripenem, Ertape nem, Imipenem, Meropenem Urine Culture Result 1 Acinetobacter lwoffii O:ACILWO Isolated O:CNSS Isolated Organism: 1.1 Antibiotic Interpretation DANILO Status Amikacin Amikacin S F Ampicillin/Sulbactam Ampicillin/Sulbactam S F Cefepime Cefepime R F Cefotaxime Cefotaxime R F Ceftazidime Ceftazidime R F Ceftriaxone Ceftriaxone S F Ciprofloxacin Ciprofloxacin S F Gentamicin Gentamicin S F Levofloxacin Levofloxacin S F Meropenem Meropenem S F Tetracycline Tetracycline S F Ticarcillin/Ca Ticarcillin/Ca S F Tobramycin Tobramycin S F Trimethoprim/Sulfameth oxazole Trimethoprim/Sulfameth oxazole R F Organism: 1.2 Antibiotic Interpretation DANILO Status Ciprofloxacin Ciprofloxacin S F Gentamicin Gentamicin S F Levofloxacin Levofloxacin S F Moxifloxacin Moxifloxacin S F Nitrofurantoin Nitrofurantoin S F Oxacillin Oxacillin S F Rifampin Rifampin S F Tetracycline Tetracycline S F Trimethoprim/Sulfameth oxazole Trimethoprim/Sulfameth oxazole S F Vancomycin Vancomycin S F Organism: 2.1 Antibiotic Interpretation DANILO Status Amikacin Amikacin S F Ampicillin/Sulbactam Ampicillin/Sulbactam S F Cefepime Cefepime R F Cefotaxime Cefotaxime R F Ceftazidime Ceftazidime R F Ceftriaxone Ceftriaxone S F Ciprofloxacin Ciprofloxacin S F Gentamicin Gentamicin S F Levofloxacin Levofloxacin S F Meropenem Meropenem S F Tetracycline Tetracycline S F Ticarcillin/Ca Ticarcillin/Ca S F Tobramycin Tobramycin S F Trimethoprim/Sulfameth oxazole Trimethoprim/Sulfameth oxazole R F Organism: 2.2 Antibiotic Interpretation DANILO Status Ciprofloxacin Ciprofloxacin S F Gentamicin Gentamicin S F Levofloxacin Levofloxacin S F Moxifloxacin Moxifloxacin S F Nitrofurantoin Nitrofurantoin S F Oxacillin Oxacillin S F Rifampin Rifampin S F Tetracycline Tetracycline S F Trimethoprim/Sulfameth oxazole Trimethoprim/Sulfameth oxazole S F Vancomycin Vancomycin S F Urine Culture Result 1 Most isolates of Staphylococcus sp. produce a beta-lactamase Urine Culture Result 1 Acinetobacter lwoffii O:ACILWO Isolated O:CNSS Isolated Organism: 1.1 Antibiotic Interpretation DANILO Status Amikacin Amikacin S F Ampicillin/Sulbactam Ampicillin/Sulbactam S F Cefepime Cefepime R F Cefotaxime Cefotaxime R F Ceftazidime Ceftazidime R F Ceftriaxone Ceftriaxone S F Ciprofloxacin Ciprofloxacin S F Gentamicin Gentamicin S F Levofloxacin Levofloxacin S F Meropenem Meropenem S F Tetracycline Tetracycline S F Ticarcillin/Ca Ticarcillin/Ca S F Tobramycin Tobramycin S F Trimethoprim/Sulfameth oxazole Trimethoprim/Sulfameth oxazole R F Organism: 1.2 Antibiotic Interpretation DANILO Status Ciprofloxacin Ciprofloxacin S F Gentamicin Gentamicin S F Levofloxacin Levofloxacin S F Moxifloxacin Moxifloxacin S F Nitrofurantoin Nitrofurantoin S F Oxacillin Oxacillin S F Rifampin Rifampin S F Tetracycline Tetracycline S F Trimethoprim/Sulfameth oxazole Trimethoprim/Sulfameth oxazole S F Vancomycin Vancomycin S F Organism: 2.1 Antibiotic Interpretation DANILO Status Amikacin Amikacin S F Ampicillin/Sulbactam Ampicillin/Sulbactam S F Cefepime Cefepime R F Cefotaxime Cefotaxime R F Ceftazidime Ceftazidime R F Ceftriaxone Ceftriaxone S F Ciprofloxacin Ciprofloxacin S F Gentamicin Gentamicin S F Levofloxacin Levofloxacin S F Meropenem Meropenem S F Tetracycline Tetracycline S F Ticarcillin/Ca Ticarcillin/Ca S F Tobramycin Tobramycin S F Trimethoprim/Sulfameth oxazole Trimethoprim/Sulfameth oxazole R F Organism: 2.2 Antibiotic Interpretation DANILO Status Ciprofloxacin Ciprofloxacin S F Gentamicin Gentamicin S F Levofloxacin Levofloxacin S F Moxifloxacin Moxifloxacin S F Nitrofurantoin Nitrofurantoin S F Oxacillin Oxacillin S F Rifampin Rifampin S F Tetracycline Tetracycline S F Trimethoprim/Sulfameth oxazole Trimethoprim/Sulfameth oxazole S F Vancomycin Vancomycin S F Urine Culture Result 1 enzyme Urine Culture Result 1 Acinetobacter lwoffii O:ACILWO Isolated O:CNSS Isolated Organism: 1.1 Antibiotic Interpretation DANILO Status Amikacin Amikacin S F Ampicillin/Sulbactam Ampicillin/Sulbactam S F Cefepime Cefepime R F Cefotaxime Cefotaxime R F Ceftazidime Ceftazidime R F Ceftriaxone Ceftriaxone S F Ciprofloxacin Ciprofloxacin S F Gentamicin Gentamicin S F Levofloxacin Levofloxacin S F Meropenem Meropenem S F Tetracycline Tetracycline S F Ticarcillin/Ca Ticarcillin/Ca S F Tobramycin Tobramycin S F Trimethoprim/Sulfameth oxazole Trimethoprim/Sulfameth oxazole R F Organism: 1.2 Antibiotic Interpretation DANILO Status Ciprofloxacin Ciprofloxacin S F Gentamicin Gentamicin S F Levofloxacin Levofloxacin S F Moxifloxacin Moxifloxacin S F Nitrofurantoin Nitrofurantoin S F Oxacillin Oxacillin S F Rifampin Rifampin S F Tetracycline Tetracycline S F Trimethoprim/Sulfameth oxazole Trimethoprim/Sulfameth oxazole S F Vancomycin Vancomycin S F Organism: 2.1 Antibiotic Interpretation DANILO Status Amikacin Amikacin S F Ampicillin/Sulbactam Ampicillin/Sulbactam S F Cefepime Cefepime R F Cefotaxime Cefotaxime R F Ceftazidime Ceftazidime R F Ceftriaxone Ceftriaxone S F Ciprofloxacin Ciprofloxacin S F Gentamicin Gentamicin S F Levofloxacin Levofloxacin S F Meropenem Meropenem S F Tetracycline Tetracycline S F Ticarcillin/Ca Ticarcillin/Ca S F Tobramycin Tobramycin S F Trimethoprim/Sulfameth oxazole Trimethoprim/Sulfameth oxazole R F Organism: 2.2 Antibiotic Interpretation DANILO Status Ciprofloxacin Ciprofloxacin S F Gentamicin Gentamicin S F Levofloxacin Levofloxacin S F Moxifloxacin Moxifloxacin S F Nitrofurantoin Nitrofurantoin S F Oxacillin Oxacillin S F Rifampin Rifampin S F Tetracycline Tetracycline S F Trimethoprim/Sulfameth oxazole Trimethoprim/Sulfameth oxazole S F Vancomycin Vancomycin S F Urine Culture Result 1 rendering them resistant to penicillin. Please contact the Urine Culture Result 1 Acinetobacter lwoffii O:ACILWO Isolated O:CNSS Isolated Organism: 1.1 Antibiotic Interpretation DANILO Status Amikacin Amikacin S F Ampicillin/Sulbactam Ampicillin/Sulbactam S F Cefepime Cefepime R F Cefotaxime Cefotaxime R F Ceftazidime Ceftazidime R F Ceftriaxone Ceftriaxone S F Ciprofloxacin Ciprofloxacin S F Gentamicin Gentamicin S F Levofloxacin Levofloxacin S F Meropenem Meropenem S F Tetracycline Tetracycline S F Ticarcillin/Ca Ticarcillin/Ca S F Tobramycin Tobramycin S F Trimethoprim/Sulfameth oxazole Trimethoprim/Sulfameth oxazole R F Organism: 1.2 Antibiotic Interpretation DANILO Status Ciprofloxacin Ciprofloxacin S F Gentamicin Gentamicin S F Levofloxacin Levofloxacin S F Moxifloxacin Moxifloxacin S F Nitrofurantoin Nitrofurantoin S F Oxacillin Oxacillin S F Rifampin Rifampin S F Tetracycline Tetracycline S F Trimethoprim/Sulfameth oxazole Trimethoprim/Sulfameth oxazole S F Vancomycin Vancomycin S F Organism: 2.1 Antibiotic Interpretation DANILO Status Amikacin Amikacin S F Ampicillin/Sulbactam Ampicillin/Sulbactam S F Cefepime Cefepime R F Cefotaxime Cefotaxime R F Ceftazidime Ceftazidime R F Ceftriaxone Ceftriaxone S F Ciprofloxacin Ciprofloxacin S F Gentamicin Gentamicin S F Levofloxacin Levofloxacin S F Meropenem Meropenem S F Tetracycline Tetracycline S F Ticarcillin/Ca Ticarcillin/Ca S F Tobramycin Tobramycin S F Trimethoprim/Sulfameth oxazole Trimethoprim/Sulfameth oxazole R F Organism: 2.2 Antibiotic Interpretation DANILO Status Ciprofloxacin Ciprofloxacin S F Gentamicin Gentamicin S F Levofloxacin Levofloxacin S F Moxifloxacin Moxifloxacin S F Nitrofurantoin Nitrofurantoin S F Oxacillin Oxacillin S F Rifampin Rifampin S F Tetracycline Tetracycline S F Trimethoprim/Sulfameth oxazole Trimethoprim/Sulfameth oxazole S F Vancomycin Vancomycin S F Urine Culture Result 1 laboratory Urine Culture Result 1 Acinetobacter lwoffii O:ACILWO Isolated O:CNSS Isolated Organism: 1.1 Antibiotic Interpretation DANILO Status Amikacin Amikacin S F Ampicillin/Sulbactam Ampicillin/Sulbactam S F Cefepime Cefepime R F Cefotaxime Cefotaxime R F Ceftazidime Ceftazidime R F Ceftriaxone Ceftriaxone S F Ciprofloxacin Ciprofloxacin S F Gentamicin Gentamicin S F Levofloxacin Levofloxacin S F Meropenem Meropenem S F Tetracycline Tetracycline S F Ticarcillin/Ca Ticarcillin/Ca S F Tobramycin Tobramycin S F Trimethoprim/Sulfameth oxazole Trimethoprim/Sulfameth oxazole R F Organism: 1.2 Antibiotic Interpretation DANILO Status Ciprofloxacin Ciprofloxacin S F Gentamicin Gentamicin S F Levofloxacin Levofloxacin S F Moxifloxacin Moxifloxacin S F Nitrofurantoin Nitrofurantoin S F Oxacillin Oxacillin S F Rifampin Rifampin S F Tetracycline Tetracycline S F Trimethoprim/Sulfameth oxazole Trimethoprim/Sulfameth oxazole S F Vancomycin Vancomycin S F Organism: 2.1 Antibiotic Interpretation DANILO Status Amikacin Amikacin S F Ampicillin/Sulbactam Ampicillin/Sulbactam S F Cefepime Cefepime R F Cefotaxime Cefotaxime R F Ceftazidime Ceftazidime R F Ceftriaxone Ceftriaxone S F Ciprofloxacin Ciprofloxacin S F Gentamicin Gentamicin S F Levofloxacin Levofloxacin S F Meropenem Meropenem S F Tetracycline Tetracycline S F Ticarcillin/Ca Ticarcillin/Ca S F Tobramycin Tobramycin S F Trimethoprim/Sulfameth oxazole Trimethoprim/Sulfameth oxazole R F Organism: 2.2 Antibiotic Interpretation DANILO Status Ciprofloxacin Ciprofloxacin S F Gentamicin Gentamicin S F Levofloxacin Levofloxacin S F Moxifloxacin Moxifloxacin S F Nitrofurantoin Nitrofurantoin S F Oxacillin Oxacillin S F Rifampin Rifampin S F Tetracycline Tetracycline S F Trimethoprim/Sulfameth oxazole Trimethoprim/Sulfameth oxazole S F Vancomycin Vancomycin S F Urine Culture Result 1 if penicillin is being considered for therapy. Urine Culture Result 1 Acinetobacter lwoffii O:ACILWO Isolated O:CNSS Isolated Organism: 1.1 Antibiotic Interpretation DANILO Status Amikacin Amikacin S F Ampicillin/Sulbactam Ampicillin/Sulbactam S F Cefepime Cefepime R F Cefotaxime Cefotaxime R F Ceftazidime Ceftazidime R F Ceftriaxone Ceftriaxone S F Ciprofloxacin Ciprofloxacin S F Gentamicin Gentamicin S F Levofloxacin Levofloxacin S F Meropenem Meropenem S F Tetracycline Tetracycline S F Ticarcillin/Ca Ticarcillin/Ca S F Tobramycin Tobramycin S F Trimethoprim/Sulfameth oxazole Trimethoprim/Sulfameth oxazole R F Organism: 1.2 Antibiotic Interpretation DANILO Status Ciprofloxacin Ciprofloxacin S F Gentamicin Gentamicin S F Levofloxacin Levofloxacin S F Moxifloxacin Moxifloxacin S F Nitrofurantoin Nitrofurantoin S F Oxacillin Oxacillin S F Rifampin Rifampin S F Tetracycline Tetracycline S F Trimethoprim/Sulfameth oxazole Trimethoprim/Sulfameth oxazole S F Vancomycin Vancomycin S F Organism: 2.1 Antibiotic Interpretation DANILO Status Amikacin Amikacin S F Ampicillin/Sulbactam Ampicillin/Sulbactam S F Cefepime Cefepime R F Cefotaxime Cefotaxime R F Ceftazidime Ceftazidime R F Ceftriaxone Ceftriaxone S F Ciprofloxacin Ciprofloxacin S F Gentamicin Gentamicin S F Levofloxacin Levofloxacin S F Meropenem Meropenem S F Tetracycline Tetracycline S F Ticarcillin/Ca Ticarcillin/Ca S F Tobramycin Tobramycin S F Trimethoprim/Sulfameth oxazole Trimethoprim/Sulfameth oxazole R F Organism: 2.2 Antibiotic Interpretation DANILO Status Ciprofloxacin Ciprofloxacin S F Gentamicin Gentamicin S F Levofloxacin Levofloxacin S F Moxifloxacin Moxifloxacin S F Nitrofurantoin Nitrofurantoin S F Oxacillin Oxacillin S F Rifampin Rifampin S F Tetracycline Tetracycline S F Trimethoprim/Sulfameth oxazole Trimethoprim/Sulfameth oxazole S F Vancomycin Vancomycin S F Urine Culture Result 1 50,000-100,000 co lony forming units per mL Urine Culture Result 1 Acinetobacter lwoffii O:ACILWO Isolated O:CNSS Isolated Organism: 1.1 Antibiotic Interpretation DANILO Status Amikacin Amikacin S F Ampicillin/Sulbactam Ampicillin/Sulbactam S F Cefepime Cefepime R F Cefotaxime Cefotaxime R F Ceftazidime Ceftazidime R F Ceftriaxone Ceftriaxone S F Ciprofloxacin Ciprofloxacin S F Gentamicin Gentamicin S F Levofloxacin Levofloxacin S F Meropenem Meropenem S F Tetracycline Tetracycline S F Ticarcillin/Ca Ticarcillin/Ca S F Tobramycin Tobramycin S F Trimethoprim/Sulfameth oxazole Trimethoprim/Sulfameth oxazole R F Organism: 1.2 Antibiotic Interpretation DANILO Status Ciprofloxacin Ciprofloxacin S F Gentamicin Gentamicin S F Levofloxacin Levofloxacin S F Moxifloxacin Moxifloxacin S F Nitrofurantoin Nitrofurantoin S F Oxacillin Oxacillin S F Rifampin Rifampin S F Tetracycline Tetracycline S F Trimethoprim/Sulfameth oxazole Trimethoprim/Sulfameth oxazole S F Vancomycin Vancomycin S F Organism: 2.1 Antibiotic Interpretation DANILO Status Amikacin Amikacin S F Ampicillin/Sulbactam Ampicillin/Sulbactam S F Cefepime Cefepime R F Cefotaxime Cefotaxime R F Ceftazidime Ceftazidime R F Ceftriaxone Ceftriaxone S F Ciprofloxacin Ciprofloxacin S F Gentamicin Gentamicin S F Levofloxacin Levofloxacin S F Meropenem Meropenem S F Tetracycline Tetracycline S F Ticarcillin/Ca Ticarcillin/Ca S F Tobramycin Tobramycin S F Trimethoprim/Sulfameth oxazole Trimethoprim/Sulfameth oxazole R F Organism: 2.2 Antibiotic Interpretation DANILO Status Ciprofloxacin Ciprofloxacin S F Gentamicin Gentamicin S F Levofloxacin Levofloxacin S F Moxifloxacin Moxifloxacin S F Nitrofurantoin Nitrofurantoin S F Oxacillin Oxacillin S F Rifampin Rifampin S F Tetracycline Tetracycline S F Trimethoprim/Sulfameth oxazole Trimethoprim/Sulfameth oxazole S F Vancomycin Vancomycin S F Urine Culture Result 1 See Below For Report Urine Culture Result 1 Acinetobacter lwoffii O:ACILWO Isolated O:CNSS Isolated Organism: 1.1 Antibiotic Interpretation DANILO Status Amikacin Amikacin S F Ampicillin/Sulbactam Ampicillin/Sulbactam S F Cefepime Cefepime R F Cefotaxime Cefotaxime R F Ceftazidime Ceftazidime R F Ceftriaxone Ceftriaxone S F Ciprofloxacin Ciprofloxacin S F Gentamicin Gentamicin S F Levofloxacin Levofloxacin S F Meropenem Meropenem S F Tetracycline Tetracycline S F Ticarcillin/Ca Ticarcillin/Ca S F Tobramycin Tobramycin S F Trimethoprim/Sulfameth oxazole Trimethoprim/Sulfameth oxazole R F Organism: 1.2 Antibiotic Interpretation DANILO Status Ciprofloxacin Ciprofloxacin S F Gentamicin Gentamicin S F Levofloxacin Levofloxacin S F Moxifloxacin Moxifloxacin S F Nitrofurantoin Nitrofurantoin S F Oxacillin Oxacillin S F Rifampin Rifampin S F Tetracycline Tetracycline S F Trimethoprim/Sulfameth oxazole Trimethoprim/Sulfameth oxazole S F Vancomycin Vancomycin S F Organism: 2.1 Antibiotic Interpretation DANILO Status Amikacin Amikacin S F Ampicillin/Sulbactam Ampicillin/Sulbactam S F Cefepime Cefepime R F Cefotaxime Cefotaxime R F Ceftazidime Ceftazidime R F Ceftriaxone Ceftriaxone S F Ciprofloxacin Ciprofloxacin S F Gentamicin Gentamicin S F Levofloxacin Levofloxacin S F Meropenem Meropenem S F Tetracycline Tetracycline S F Ticarcillin/Ca Ticarcillin/Ca S F Tobramycin Tobramycin S F Trimethoprim/Sulfameth oxazole Trimethoprim/Sulfameth oxazole R F Organism: 2.2 Antibiotic Interpretation DANILO Status Ciprofloxacin Ciprofloxacin S F Gentamicin Gentamicin S F Levofloxacin Levofloxacin S F Moxifloxacin Moxifloxacin S F Nitrofurantoin Nitrofurantoin S F Oxacillin Oxacillin S F Rifampin Rifampin S F Tetracycline Tetracycline S F Trimethoprim/Sulfameth oxazole Trimethoprim/Sulfameth oxazole S F Vancomycin Vancomycin S F Urine Culture Result 1 See Below For Report Urine Culture Result 1 Acinetobacter lwoffii O:ACILWO Isolated O:CNSS Isolated Organism: 1.1 Antibiotic Interpretation DANILO Status Amikacin Amikacin S F Ampicillin/Sulbactam Ampicillin/Sulbactam S F Cefepime Cefepime R F Cefotaxime Cefotaxime R F Ceftazidime Ceftazidime R F Ceftriaxone Ceftriaxone S F Ciprofloxacin Ciprofloxacin S F Gentamicin Gentamicin S F Levofloxacin Levofloxacin S F Meropenem Meropenem S F Tetracycline Tetracycline S F Ticarcillin/Ca Ticarcillin/Ca S F Tobramycin Tobramycin S F Trimethoprim/Sulfameth oxazole Trimethoprim/Sulfameth oxazole R F Organism: 1.2 Antibiotic Interpretation DANILO Status Ciprofloxacin Ciprofloxacin S F Gentamicin Gentamicin S F Levofloxacin Levofloxacin S F Moxifloxacin Moxifloxacin S F Nitrofurantoin Nitrofurantoin S F Oxacillin Oxacillin S F Rifampin Rifampin S F Tetracycline Tetracycline S F Trimethoprim/Sulfameth oxazole Trimethoprim/Sulfameth oxazole S F Vancomycin Vancomycin S F Organism: 2.1 Antibiotic Interpretation DANILO Status Amikacin Amikacin S F Ampicillin/Sulbactam Ampicillin/Sulbactam S F Cefepime Cefepime R F Cefotaxime Cefotaxime R F Ceftazidime Ceftazidime R F Ceftriaxone Ceftriaxone S F Ciprofloxacin Ciprofloxacin S F Gentamicin Gentamicin S F Levofloxacin Levofloxacin S F Meropenem Meropenem S F Tetracycline Tetracycline S F Ticarcillin/Ca Ticarcillin/Ca S F Tobramycin Tobramycin S F Trimethoprim/Sulfameth oxazole Trimethoprim/Sulfameth oxazole R F Organism: 2.2 Antibiotic Interpretation DANILO Status Ciprofloxacin Ciprofloxacin S F Gentamicin Gentamicin S F Levofloxacin Levofloxacin S F Moxifloxacin Moxifloxacin S F Nitrofurantoin Nitrofurantoin S F Oxacillin Oxacillin S F Rifampin Rifampin S F Tetracycline Tetracycline S F Trimethoprim/Sulfameth oxazole Trimethoprim/Sulfameth oxazole S F Vancomycin Vancomycin S F Urine Culture Result 1 See Below For Report Urine Culture Result 1 Acinetobacter lwoffii O:ACILWO Isolated O:CNSS Isolated Organism: 1.1 Antibiotic Interpretation DANILO Status Amikacin Amikacin S F Ampicillin/Sulbactam Ampicillin/Sulbactam S F Cefepime Cefepime R F Cefotaxime Cefotaxime R F Ceftazidime Ceftazidime R F Ceftriaxone Ceftriaxone S F Ciprofloxacin Ciprofloxacin S F Gentamicin Gentamicin S F Levofloxacin Levofloxacin S F Meropenem Meropenem S F Tetracycline Tetracycline S F Ticarcillin/Ca Ticarcillin/Ca S F Tobramycin Tobramycin S F Trimethoprim/Sulfameth oxazole Trimethoprim/Sulfameth oxazole R F Organism: 1.2 Antibiotic Interpretation DANILO Status Ciprofloxacin Ciprofloxacin S F Gentamicin Gentamicin S F Levofloxacin Levofloxacin S F Moxifloxacin Moxifloxacin S F Nitrofurantoin Nitrofurantoin S F Oxacillin Oxacillin S F Rifampin Rifampin S F Tetracycline Tetracycline S F Trimethoprim/Sulfameth oxazole Trimethoprim/Sulfameth oxazole S F Vancomycin Vancomycin S F Organism: 2.1 Antibiotic Interpretation DANILO Status Amikacin Amikacin S F Ampicillin/Sulbactam Ampicillin/Sulbactam S F Cefepime Cefepime R F Cefotaxime Cefotaxime R F Ceftazidime Ceftazidime R F Ceftriaxone Ceftriaxone S F Ciprofloxacin Ciprofloxacin S F Gentamicin Gentamicin S F Levofloxacin Levofloxacin S F Meropenem Meropenem S F Tetracycline Tetracycline S F Ticarcillin/Ca Ticarcillin/Ca S F Tobramycin Tobramycin S F Trimethoprim/Sulfameth oxazole Trimethoprim/Sulfameth oxazole R F Organism: 2.2 Antibiotic Interpretation DANILO Status Ciprofloxacin Ciprofloxacin S F Gentamicin Gentamicin S F Levofloxacin Levofloxacin S F Moxifloxacin Moxifloxacin S F Nitrofurantoin Nitrofurantoin S F Oxacillin Oxacillin S F Rifampin Rifampin S F Tetracycline Tetracycline S F Trimethoprim/Sulfameth oxazole Trimethoprim/Sulfameth oxazole S F Vancomycin Vancomycin S F Urine Culture Result 1 See Below For Report Urine Culture Result 1 Acinetobacter lwoffii O:ACILWO Isolated O:CNSS Isolated Organism: 1.1 Antibiotic Interpretation DANILO Status Amikacin Amikacin S F Ampicillin/Sulbactam Ampicillin/Sulbactam S F Cefepime Cefepime R F Cefotaxime Cefotaxime R F Ceftazidime Ceftazidime R F Ceftriaxone Ceftriaxone S F Ciprofloxacin Ciprofloxacin S F Gentamicin Gentamicin S F Levofloxacin Levofloxacin S F Meropenem Meropenem S F Tetracycline Tetracycline S F Ticarcillin/Ca Ticarcillin/Ca S F Tobramycin Tobramycin S F Trimethoprim/Sulfameth oxazole Trimethoprim/Sulfameth oxazole R F Organism: 1.2 Antibiotic Interpretation DANILO Status Ciprofloxacin Ciprofloxacin S F Gentamicin Gentamicin S F Levofloxacin Levofloxacin S F Moxifloxacin Moxifloxacin S F Nitrofurantoin Nitrofurantoin S F Oxacillin Oxacillin S F Rifampin Rifampin S F Tetracycline Tetracycline S F Trimethoprim/Sulfameth oxazole Trimethoprim/Sulfameth oxazole S F Vancomycin Vancomycin S F Organism: 2.1 Antibiotic Interpretation DANILO Status Amikacin Amikacin S F Ampicillin/Sulbactam Ampicillin/Sulbactam S F Cefepime Cefepime R F Cefotaxime Cefotaxime R F Ceftazidime Ceftazidime R F Ceftriaxone Ceftriaxone S F Ciprofloxacin Ciprofloxacin S F Gentamicin Gentamicin S F Levofloxacin Levofloxacin S F Meropenem Meropenem S F Tetracycline Tetracycline S F Ticarcillin/Ca Ticarcillin/Ca S F Tobramycin Tobramycin S F Trimethoprim/Sulfameth oxazole Trimethoprim/Sulfameth oxazole R F Organism: 2.2 Antibiotic Interpretation DANILO Status Ciprofloxacin Ciprofloxacin S F Gentamicin Gentamicin S F Levofloxacin Levofloxacin S F Moxifloxacin Moxifloxacin S F Nitrofurantoin Nitrofurantoin S F Oxacillin Oxacillin S F Rifampin Rifampin S F Tetracycline Tetracycline S F Trimethoprim/Sulfameth oxazole Trimethoprim/Sulfameth oxazole S F Vancomycin Vancomycin S F Urine Culture Result 1 See Below For Report Urine Culture Result 1 Acinetobacter lwoffii O:ACILWO Isolated O:CNSS Isolated Organism: 1.1 Antibiotic Interpretation DANILO Status Amikacin Amikacin S F Ampicillin/Sulbactam Ampicillin/Sulbactam S F Cefepime Cefepime R F Cefotaxime Cefotaxime R F Ceftazidime Ceftazidime R F Ceftriaxone Ceftriaxone S F Ciprofloxacin Ciprofloxacin S F Gentamicin Gentamicin S F Levofloxacin Levofloxacin S F Meropenem Meropenem S F Tetracycline Tetracycline S F Ticarcillin/Ca Ticarcillin/Ca S F Tobramycin Tobramycin S F Trimethoprim/Sulfameth oxazole Trimethoprim/Sulfameth oxazole R F Organism: 1.2 Antibiotic Interpretation DANILO Status Ciprofloxacin Ciprofloxacin S F Gentamicin Gentamicin S F Levofloxacin Levofloxacin S F Moxifloxacin Moxifloxacin S F Nitrofurantoin Nitrofurantoin S F Oxacillin Oxacillin S F Rifampin Rifampin S F Tetracycline Tetracycline S F Trimethoprim/Sulfameth oxazole Trimethoprim/Sulfameth oxazole S F Vancomycin Vancomycin S F Organism: 2.1 Antibiotic Interpretation DANILO Status Amikacin Amikacin S F Ampicillin/Sulbactam Ampicillin/Sulbactam S F Cefepime Cefepime R F Cefotaxime Cefotaxime R F Ceftazidime Ceftazidime R F Ceftriaxone Ceftriaxone S F Ciprofloxacin Ciprofloxacin S F Gentamicin Gentamicin S F Levofloxacin Levofloxacin S F Meropenem Meropenem S F Tetracycline Tetracycline S F Ticarcillin/Ca Ticarcillin/Ca S F Tobramycin Tobramycin S F Trimethoprim/Sulfameth oxazole Trimethoprim/Sulfameth oxazole R F Organism: 2.2 Antibiotic Interpretation DANILO Status Ciprofloxacin Ciprofloxacin S F Gentamicin Gentamicin S F Levofloxacin Levofloxacin S F Moxifloxacin Moxifloxacin S F Nitrofurantoin Nitrofurantoin S F Oxacillin Oxacillin S F Rifampin Rifampin S F Tetracycline Tetracycline S F Trimethoprim/Sulfameth oxazole Trimethoprim/Sulfameth oxazole S F Vancomycin Vancomycin S F Urine Culture Result 1 See Below For Report Urine Culture Result 1 Acinetobacter lwoffii O:ACILWO Isolated O:CNSS Isolated Organism: 1.1 Antibiotic Interpretation DANILO Status Amikacin Amikacin S F Ampicillin/Sulbactam Ampicillin/Sulbactam S F Cefepime Cefepime R F Cefotaxime Cefotaxime R F Ceftazidime Ceftazidime R F Ceftriaxone Ceftriaxone S F Ciprofloxacin Ciprofloxacin S F Gentamicin Gentamicin S F Levofloxacin Levofloxacin S F Meropenem Meropenem S F Tetracycline Tetracycline S F Ticarcillin/Ca Ticarcillin/Ca S F Tobramycin Tobramycin S F Trimethoprim/Sulfameth oxazole Trimethoprim/Sulfameth oxazole R F Organism: 1.2 Antibiotic Interpretation DANILO Status Ciprofloxacin Ciprofloxacin S F Gentamicin Gentamicin S F Levofloxacin Levofloxacin S F Moxifloxacin Moxifloxacin S F Nitrofurantoin Nitrofurantoin S F Oxacillin Oxacillin S F Rifampin Rifampin S F Tetracycline Tetracycline S F Trimethoprim/Sulfameth oxazole Trimethoprim/Sulfameth oxazole S F Vancomycin Vancomycin S F Organism: 2.1 Antibiotic Interpretation DANILO Status Amikacin Amikacin S F Ampicillin/Sulbactam Ampicillin/Sulbactam S F Cefepime Cefepime R F Cefotaxime Cefotaxime R F Ceftazidime Ceftazidime R F Ceftriaxone Ceftriaxone S F Ciprofloxacin Ciprofloxacin S F Gentamicin Gentamicin S F Levofloxacin Levofloxacin S F Meropenem Meropenem S F Tetracycline Tetracycline S F Ticarcillin/Ca Ticarcillin/Ca S F Tobramycin Tobramycin S F Trimethoprim/Sulfameth oxazole Trimethoprim/Sulfameth oxazole R F Organism: 2.2 Antibiotic Interpretation DANILO Status Ciprofloxacin Ciprofloxacin S F Gentamicin Gentamicin S F Levofloxacin Levofloxacin S F Moxifloxacin Moxifloxacin S F Nitrofurantoin Nitrofurantoin S F Oxacillin Oxacillin S F Rifampin Rifampin S F Tetracycline Tetracycline S F Trimethoprim/Sulfameth oxazole Trimethoprim/Sulfameth oxazole S F Vancomycin Vancomycin S F Urine Culture Result 1 See Below For Report Urine Culture Result 1 Acinetobacter lwoffii O:ACILWO Isolated O:CNSS Isolated Organism: 1.1 Antibiotic Interpretation DANILO Status Amikacin Amikacin S F Ampicillin/Sulbactam Ampicillin/Sulbactam S F Cefepime Cefepime R F Cefotaxime Cefotaxime R F Ceftazidime Ceftazidime R F Ceftriaxone Ceftriaxone S F Ciprofloxacin Ciprofloxacin S F Gentamicin Gentamicin S F Levofloxacin Levofloxacin S F Meropenem Meropenem S F Tetracycline Tetracycline S F Ticarcillin/Ca Ticarcillin/Ca S F Tobramycin Tobramycin S F Trimethoprim/Sulfameth oxazole Trimethoprim/Sulfameth oxazole R F Organism: 1.2 Antibiotic Interpretation DANILO Status Ciprofloxacin Ciprofloxacin S F Gentamicin Gentamicin S F Levofloxacin Levofloxacin S F Moxifloxacin Moxifloxacin S F Nitrofurantoin Nitrofurantoin S F Oxacillin Oxacillin S F Rifampin Rifampin S F Tetracycline Tetracycline S F Trimethoprim/Sulfameth oxazole Trimethoprim/Sulfameth oxazole S F Vancomycin Vancomycin S F Organism: 2.1 Antibiotic Interpretation DANILO Status Amikacin Amikacin S F Ampicillin/Sulbactam Ampicillin/Sulbactam S F Cefepime Cefepime R F Cefotaxime Cefotaxime R F Ceftazidime Ceftazidime R F Ceftriaxone Ceftriaxone S F Ciprofloxacin Ciprofloxacin S F Gentamicin Gentamicin S F Levofloxacin Levofloxacin S F Meropenem Meropenem S F Tetracycline Tetracycline S F Ticarcillin/Ca Ticarcillin/Ca S F Tobramycin Tobramycin S F Trimethoprim/Sulfameth oxazole Trimethoprim/Sulfameth oxazole R F Organism: 2.2 Antibiotic Interpretation DANILO Status Ciprofloxacin Ciprofloxacin S F Gentamicin Gentamicin S F Levofloxacin Levofloxacin S F Moxifloxacin Moxifloxacin S F Nitrofurantoin Nitrofurantoin S F Oxacillin Oxacillin S F Rifampin Rifampin S F Tetracycline Tetracycline S F Trimethoprim/Sulfameth oxazole Trimethoprim/Sulfameth oxazole S F Vancomycin Vancomycin S F Urine Culture Result 1 See Below For Report Urine Culture Result 1 Acinetobacter lwoffii O:ACILWO Isolated O:CNSS Isolated Organism: 1.1 Antibiotic Interpretation DANILO Status Amikacin Amikacin S F Ampicillin/Sulbactam Ampicillin/Sulbactam S F Cefepime Cefepime R F Cefotaxime Cefotaxime R F Ceftazidime Ceftazidime R F Ceftriaxone Ceftriaxone S F Ciprofloxacin Ciprofloxacin S F Gentamicin Gentamicin S F Levofloxacin Levofloxacin S F Meropenem Meropenem S F Tetracycline Tetracycline S F Ticarcillin/Ca Ticarcillin/Ca S F Tobramycin Tobramycin S F Trimethoprim/Sulfameth oxazole Trimethoprim/Sulfameth oxazole R F Organism: 1.2 Antibiotic Interpretation DANILO Status Ciprofloxacin Ciprofloxacin S F Gentamicin Gentamicin S F Levofloxacin Levofloxacin S F Moxifloxacin Moxifloxacin S F Nitrofurantoin Nitrofurantoin S F Oxacillin Oxacillin S F Rifampin Rifampin S F Tetracycline Tetracycline S F Trimethoprim/Sulfameth oxazole Trimethoprim/Sulfameth oxazole S F Vancomycin Vancomycin S F Organism: 2.1 Antibiotic Interpretation DANILO Status Amikacin Amikacin S F Ampicillin/Sulbactam Ampicillin/Sulbactam S F Cefepime Cefepime R F Cefotaxime Cefotaxime R F Ceftazidime Ceftazidime R F Ceftriaxone Ceftriaxone S F Ciprofloxacin Ciprofloxacin S F Gentamicin Gentamicin S F Levofloxacin Levofloxacin S F Meropenem Meropenem S F Tetracycline Tetracycline S F Ticarcillin/Ca Ticarcillin/Ca S F Tobramycin Tobramycin S F Trimethoprim/Sulfameth oxazole Trimethoprim/Sulfameth oxazole R F Organism: 2.2 Antibiotic Interpretation DANILO Status Ciprofloxacin Ciprofloxacin S F Gentamicin Gentamicin S F Levofloxacin Levofloxacin S F Moxifloxacin Moxifloxacin S F Nitrofurantoin Nitrofurantoin S F Oxacillin Oxacillin S F Rifampin Rifampin S F Tetracycline Tetracycline S F Trimethoprim/Sulfameth oxazole Trimethoprim/Sulfameth oxazole S F Vancomycin Vancomycin S F Urine Culture Result 1 See Below For Report Urine Culture Result 1 Acinetobacter lwoffii O:ACILWO Isolated O:CNSS Isolated Organism: 1.1 Antibiotic Interpretation DANILO Status Amikacin Amikacin S F Ampicillin/Sulbactam Ampicillin/Sulbactam S F Cefepime Cefepime R F Cefotaxime Cefotaxime R F Ceftazidime Ceftazidime R F Ceftriaxone Ceftriaxone S F Ciprofloxacin Ciprofloxacin S F Gentamicin Gentamicin S F Levofloxacin Levofloxacin S F Meropenem Meropenem S F Tetracycline Tetracycline S F Ticarcillin/Ca Ticarcillin/Ca S F Tobramycin Tobramycin S F Trimethoprim/Sulfameth oxazole Trimethoprim/Sulfameth oxazole R F Organism: 1.2 Antibiotic Interpretation DANILO Status Ciprofloxacin Ciprofloxacin S F Gentamicin Gentamicin S F Levofloxacin Levofloxacin S F Moxifloxacin Moxifloxacin S F Nitrofurantoin Nitrofurantoin S F Oxacillin Oxacillin S F Rifampin Rifampin S F Tetracycline Tetracycline S F Trimethoprim/Sulfameth oxazole Trimethoprim/Sulfameth oxazole S F Vancomycin Vancomycin S F Organism: 2.1 Antibiotic Interpretation DANILO Status Amikacin Amikacin S F Ampicillin/Sulbactam Ampicillin/Sulbactam S F Cefepime Cefepime R F Cefotaxime Cefotaxime R F Ceftazidime Ceftazidime R F Ceftriaxone Ceftriaxone S F Ciprofloxacin Ciprofloxacin S F Gentamicin Gentamicin S F Levofloxacin Levofloxacin S F Meropenem Meropenem S F Tetracycline Tetracycline S F Ticarcillin/Ca Ticarcillin/Ca S F Tobramycin Tobramycin S F Trimethoprim/Sulfameth oxazole Trimethoprim/Sulfameth oxazole R F Organism: 2.2 Antibiotic Interpretation DANILO Status Ciprofloxacin Ciprofloxacin S F Gentamicin Gentamicin S F Levofloxacin Levofloxacin S F Moxifloxacin Moxifloxacin S F Nitrofurantoin Nitrofurantoin S F Oxacillin Oxacillin S F Rifampin Rifampin S F Tetracycline Tetracycline S F Trimethoprim/Sulfameth oxazole Trimethoprim/Sulfameth oxazole S F Vancomycin Vancomycin S F Urine Culture Result 1 See Below For Report Urine Culture Result 1 Acinetobacter lwoffii O:ACILWO Isolated O:CNSS Isolated Organism: 1.1 Antibiotic Interpretation DANILO Status Amikacin Amikacin S F Ampicillin/Sulbactam Ampicillin/Sulbactam S F Cefepime Cefepime R F Cefotaxime Cefotaxime R F Ceftazidime Ceftazidime R F Ceftriaxone Ceftriaxone S F Ciprofloxacin Ciprofloxacin S F Gentamicin Gentamicin S F Levofloxacin Levofloxacin S F Meropenem Meropenem S F Tetracycline Tetracycline S F Ticarcillin/Ca Ticarcillin/Ca S F Tobramycin Tobramycin S F Trimethoprim/Sulfameth oxazole Trimethoprim/Sulfameth oxazole R F Organism: 1.2 Antibiotic Interpretation DANILO Status Ciprofloxacin Ciprofloxacin S F Gentamicin Gentamicin S F Levofloxacin Levofloxacin S F Moxifloxacin Moxifloxacin S F Nitrofurantoin Nitrofurantoin S F Oxacillin Oxacillin S F Rifampin Rifampin S F Tetracycline Tetracycline S F Trimethoprim/Sulfameth oxazole Trimethoprim/Sulfameth oxazole S F Vancomycin Vancomycin S F Organism: 2.1 Antibiotic Interpretation DANILO Status Amikacin Amikacin S F Ampicillin/Sulbactam Ampicillin/Sulbactam S F Cefepime Cefepime R F Cefotaxime Cefotaxime R F Ceftazidime Ceftazidime R F Ceftriaxone Ceftriaxone S F Ciprofloxacin Ciprofloxacin S F Gentamicin Gentamicin S F Levofloxacin Levofloxacin S F Meropenem Meropenem S F Tetracycline Tetracycline S F Ticarcillin/Ca Ticarcillin/Ca S F Tobramycin Tobramycin S F Trimethoprim/Sulfameth oxazole Trimethoprim/Sulfameth oxazole R F Organism: 2.2 Antibiotic Interpretation DANILO Status Ciprofloxacin Ciprofloxacin S F Gentamicin Gentamicin S F Levofloxacin Levofloxacin S F Moxifloxacin Moxifloxacin S F Nitrofurantoin Nitrofurantoin S F Oxacillin Oxacillin S F Rifampin Rifampin S F Tetracycline Tetracycline S F Trimethoprim/Sulfameth oxazole Trimethoprim/Sulfameth oxazole S F Vancomycin Vancomycin S F Urine Culture Result 1 See Below For Report Urine Culture Result 1 Acinetobacter lwoffii O:ACILWO Isolated O:CNSS Isolated Organism: 1.1 Antibiotic Interpretation DANILO Status Amikacin Amikacin S F Ampicillin/Sulbactam Ampicillin/Sulbactam S F Cefepime Cefepime R F Cefotaxime Cefotaxime R F Ceftazidime Ceftazidime R F Ceftriaxone Ceftriaxone S F Ciprofloxacin Ciprofloxacin S F Gentamicin Gentamicin S F Levofloxacin Levofloxacin S F Meropenem Meropenem S F Tetracycline Tetracycline S F Ticarcillin/Ca Ticarcillin/Ca S F Tobramycin Tobramycin S F Trimethoprim/Sulfameth oxazole Trimethoprim/Sulfameth oxazole R F Organism: 1.2 Antibiotic Interpretation DANILO Status Ciprofloxacin Ciprofloxacin S F Gentamicin Gentamicin S F Levofloxacin Levofloxacin S F Moxifloxacin Moxifloxacin S F Nitrofurantoin Nitrofurantoin S F Oxacillin Oxacillin S F Rifampin Rifampin S F Tetracycline Tetracycline S F Trimethoprim/Sulfameth oxazole Trimethoprim/Sulfameth oxazole S F Vancomycin Vancomycin S F Organism: 2.1 Antibiotic Interpretation DANILO Status Amikacin Amikacin S F Ampicillin/Sulbactam Ampicillin/Sulbactam S F Cefepime Cefepime R F Cefotaxime Cefotaxime R F Ceftazidime Ceftazidime R F Ceftriaxone Ceftriaxone S F Ciprofloxacin Ciprofloxacin S F Gentamicin Gentamicin S F Levofloxacin Levofloxacin S F Meropenem Meropenem S F Tetracycline Tetracycline S F Ticarcillin/Ca Ticarcillin/Ca S F Tobramycin Tobramycin S F Trimethoprim/Sulfameth oxazole Trimethoprim/Sulfameth oxazole R F Organism: 2.2 Antibiotic Interpretation DANILO Status Ciprofloxacin Ciprofloxacin S F Gentamicin Gentamicin S F Levofloxacin Levofloxacin S F Moxifloxacin Moxifloxacin S F Nitrofurantoin Nitrofurantoin S F Oxacillin Oxacillin S F Rifampin Rifampin S F Tetracycline Tetracycline S F Trimethoprim/Sulfameth oxazole Trimethoprim/Sulfameth oxazole S F Vancomycin Vancomycin S F Urine Culture Result 1 See Below For Report Urine Culture Result 1 Acinetobacter lwoffii O:ACILWO Isolated O:CNSS Isolated Organism: 1.1 Antibiotic Interpretation DANILO Status Amikacin Amikacin S F Ampicillin/Sulbactam Ampicillin/Sulbactam S F Cefepime Cefepime R F Cefotaxime Cefotaxime R F Ceftazidime Ceftazidime R F Ceftriaxone Ceftriaxone S F Ciprofloxacin Ciprofloxacin S F Gentamicin Gentamicin S F Levofloxacin Levofloxacin S F Meropenem Meropenem S F Tetracycline Tetracycline S F Ticarcillin/Ca Ticarcillin/Ca S F Tobramycin Tobramycin S F Trimethoprim/Sulfameth oxazole Trimethoprim/Sulfameth oxazole R F Organism: 1.2 Antibiotic Interpretation DANILO Status Ciprofloxacin Ciprofloxacin S F Gentamicin Gentamicin S F Levofloxacin Levofloxacin S F Moxifloxacin Moxifloxacin S F Nitrofurantoin Nitrofurantoin S F Oxacillin Oxacillin S F Rifampin Rifampin S F Tetracycline Tetracycline S F Trimethoprim/Sulfameth oxazole Trimethoprim/Sulfameth oxazole S F Vancomycin Vancomycin S F Organism: 2.1 Antibiotic Interpretation DANILO Status Amikacin Amikacin S F Ampicillin/Sulbactam Ampicillin/Sulbactam S F Cefepime Cefepime R F Cefotaxime Cefotaxime R F Ceftazidime Ceftazidime R F Ceftriaxone Ceftriaxone S F Ciprofloxacin Ciprofloxacin S F Gentamicin Gentamicin S F Levofloxacin Levofloxacin S F Meropenem Meropenem S F Tetracycline Tetracycline S F Ticarcillin/Ca Ticarcillin/Ca S F Tobramycin Tobramycin S F Trimethoprim/Sulfameth oxazole Trimethoprim/Sulfameth oxazole R F Organism: 2.2 Antibiotic Interpretation DANILO Status Ciprofloxacin Ciprofloxacin S F Gentamicin Gentamicin S F Levofloxacin Levofloxacin S F Moxifloxacin Moxifloxacin S F Nitrofurantoin Nitrofurantoin S F Oxacillin Oxacillin S F Rifampin Rifampin S F Tetracycline Tetracycline S F Trimethoprim/Sulfameth oxazole Trimethoprim/Sulfameth oxazole S F Vancomycin Vancomycin S F Urine Culture Result 1 See Below For Report Urine Culture Result 1 Acinetobacter lwoffii O:ACILWO Isolated O:CNSS Isolated Organism: 1.1 Antibiotic Interpretation DANILO Status Amikacin Amikacin S F Ampicillin/Sulbactam Ampicillin/Sulbactam S F Cefepime Cefepime R F Cefotaxime Cefotaxime R F Ceftazidime Ceftazidime R F Ceftriaxone Ceftriaxone S F Ciprofloxacin Ciprofloxacin S F Gentamicin Gentamicin S F Levofloxacin Levofloxacin S F Meropenem Meropenem S F Tetracycline Tetracycline S F Ticarcillin/Ca Ticarcillin/Ca S F Tobramycin Tobramycin S F Trimethoprim/Sulfameth oxazole Trimethoprim/Sulfameth oxazole R F Organism: 1.2 Antibiotic Interpretation DANILO Status Ciprofloxacin Ciprofloxacin S F Gentamicin Gentamicin S F Levofloxacin Levofloxacin S F Moxifloxacin Moxifloxacin S F Nitrofurantoin Nitrofurantoin S F Oxacillin Oxacillin S F Rifampin Rifampin S F Tetracycline Tetracycline S F Trimethoprim/Sulfameth oxazole Trimethoprim/Sulfameth oxazole S F Vancomycin Vancomycin S F Organism: 2.1 Antibiotic Interpretation DANILO Status Amikacin Amikacin S F Ampicillin/Sulbactam Ampicillin/Sulbactam S F Cefepime Cefepime R F Cefotaxime Cefotaxime R F Ceftazidime Ceftazidime R F Ceftriaxone Ceftriaxone S F Ciprofloxacin Ciprofloxacin S F Gentamicin Gentamicin S F Levofloxacin Levofloxacin S F Meropenem Meropenem S F Tetracycline Tetracycline S F Ticarcillin/Ca Ticarcillin/Ca S F Tobramycin Tobramycin S F Trimethoprim/Sulfameth oxazole Trimethoprim/Sulfameth oxazole R F Organism: 2.2 Antibiotic Interpretation DANILO Status Ciprofloxacin Ciprofloxacin S F Gentamicin Gentamicin S F Levofloxacin Levofloxacin S F Moxifloxacin Moxifloxacin S F Nitrofurantoin Nitrofurantoin S F Oxacillin Oxacillin S F Rifampin Rifampin S F Tetracycline Tetracycline S F Trimethoprim/Sulfameth oxazole Trimethoprim/Sulfameth oxazole S F Vancomycin Vancomycin S F Urine Culture Result 1 See Below For Report Urine Culture Result 1 Acinetobacter lwoffii O:ACILWO Isolated O:CNSS Isolated Organism: 1.1 Antibiotic Interpretation DANILO Status Amikacin Amikacin S F Ampicillin/Sulbactam Ampicillin/Sulbactam S F Cefepime Cefepime R F Cefotaxime Cefotaxime R F Ceftazidime Ceftazidime R F Ceftriaxone Ceftriaxone S F Ciprofloxacin Ciprofloxacin S F Gentamicin Gentamicin S F Levofloxacin Levofloxacin S F Meropenem Meropenem S F Tetracycline Tetracycline S F Ticarcillin/Ca Ticarcillin/Ca S F Tobramycin Tobramycin S F Trimethoprim/Sulfameth oxazole Trimethoprim/Sulfameth oxazole R F Organism: 1.2 Antibiotic Interpretation DANILO Status Ciprofloxacin Ciprofloxacin S F Gentamicin Gentamicin S F Levofloxacin Levofloxacin S F Moxifloxacin Moxifloxacin S F Nitrofurantoin Nitrofurantoin S F Oxacillin Oxacillin S F Rifampin Rifampin S F Tetracycline Tetracycline S F Trimethoprim/Sulfameth oxazole Trimethoprim/Sulfameth oxazole S F Vancomycin Vancomycin S F Organism: 2.1 Antibiotic Interpretation DANILO Status Amikacin Amikacin S F Ampicillin/Sulbactam Ampicillin/Sulbactam S F Cefepime Cefepime R F Cefotaxime Cefotaxime R F Ceftazidime Ceftazidime R F Ceftriaxone Ceftriaxone S F Ciprofloxacin Ciprofloxacin S F Gentamicin Gentamicin S F Levofloxacin Levofloxacin S F Meropenem Meropenem S F Tetracycline Tetracycline S F Ticarcillin/Ca Ticarcillin/Ca S F Tobramycin Tobramycin S F Trimethoprim/Sulfameth oxazole Trimethoprim/Sulfameth oxazole R F Organism: 2.2 Antibiotic Interpretation DANILO Status Ciprofloxacin Ciprofloxacin S F Gentamicin Gentamicin S F Levofloxacin Levofloxacin S F Moxifloxacin Moxifloxacin S F Nitrofurantoin Nitrofurantoin S F Oxacillin Oxacillin S F Rifampin Rifampin S F Tetracycline Tetracycline S F Trimethoprim/Sulfameth oxazole Trimethoprim/Sulfameth oxazole S F Vancomycin Vancomycin S F Urine Culture Result 1 See Below For Report Urine Culture Result 1 Acinetobacter lwoffii O:ACILWO Isolated O:CNSS Isolated Organism: 1.1 Antibiotic Interpretation DANILO Status Amikacin Amikacin S F Ampicillin/Sulbactam Ampicillin/Sulbactam S F Cefepime Cefepime R F Cefotaxime Cefotaxime R F Ceftazidime Ceftazidime R F Ceftriaxone Ceftriaxone S F Ciprofloxacin Ciprofloxacin S F Gentamicin Gentamicin S F Levofloxacin Levofloxacin S F Meropenem Meropenem S F Tetracycline Tetracycline S F Ticarcillin/Ca Ticarcillin/Ca S F Tobramycin Tobramycin S F Trimethoprim/Sulfameth oxazole Trimethoprim/Sulfameth oxazole R F Organism: 1.2 Antibiotic Interpretation DANILO Status Ciprofloxacin Ciprofloxacin S F Gentamicin Gentamicin S F Levofloxacin Levofloxacin S F Moxifloxacin Moxifloxacin S F Nitrofurantoin Nitrofurantoin S F Oxacillin Oxacillin S F Rifampin Rifampin S F Tetracycline Tetracycline S F Trimethoprim/Sulfameth oxazole Trimethoprim/Sulfameth oxazole S F Vancomycin Vancomycin S F Organism: 2.1 Antibiotic Interpretation DANILO Status Amikacin Amikacin S F Ampicillin/Sulbactam Ampicillin/Sulbactam S F Cefepime Cefepime R F Cefotaxime Cefotaxime R F Ceftazidime Ceftazidime R F Ceftriaxone Ceftriaxone S F Ciprofloxacin Ciprofloxacin S F Gentamicin Gentamicin S F Levofloxacin Levofloxacin S F Meropenem Meropenem S F Tetracycline Tetracycline S F Ticarcillin/Ca Ticarcillin/Ca S F Tobramycin Tobramycin S F Trimethoprim/Sulfameth oxazole Trimethoprim/Sulfameth oxazole R F Organism: 2.2 Antibiotic Interpretation DANILO Status Ciprofloxacin Ciprofloxacin S F Gentamicin Gentamicin S F Levofloxacin Levofloxacin S F Moxifloxacin Moxifloxacin S F Nitrofurantoin Nitrofurantoin S F Oxacillin Oxacillin S F Rifampin Rifampin S F Tetracycline Tetracycline S F Trimethoprim/Sulfameth oxazole Trimethoprim/Sulfameth oxazole S F Vancomycin Vancomycin S F Urine Culture Result 1 See Below For Report Urine Culture Result 1 Acinetobacter lwoffii O:ACILWO Isolated O:CNSS Isolated Organism: 1.1 Antibiotic Interpretation DANILO Status Amikacin Amikacin S F Ampicillin/Sulbactam Ampicillin/Sulbactam S F Cefepime Cefepime R F Cefotaxime Cefotaxime R F Ceftazidime Ceftazidime R F Ceftriaxone Ceftriaxone S F Ciprofloxacin Ciprofloxacin S F Gentamicin Gentamicin S F Levofloxacin Levofloxacin S F Meropenem Meropenem S F Tetracycline Tetracycline S F Ticarcillin/Ca Ticarcillin/Ca S F Tobramycin Tobramycin S F Trimethoprim/Sulfameth oxazole Trimethoprim/Sulfameth oxazole R F Organism: 1.2 Antibiotic Interpretation DANILO Status Ciprofloxacin Ciprofloxacin S F Gentamicin Gentamicin S F Levofloxacin Levofloxacin S F Moxifloxacin Moxifloxacin S F Nitrofurantoin Nitrofurantoin S F Oxacillin Oxacillin S F Rifampin Rifampin S F Tetracycline Tetracycline S F Trimethoprim/Sulfameth oxazole Trimethoprim/Sulfameth oxazole S F Vancomycin Vancomycin S F Organism: 2.1 Antibiotic Interpretation DANILO Status Amikacin Amikacin S F Ampicillin/Sulbactam Ampicillin/Sulbactam S F Cefepime Cefepime R F Cefotaxime Cefotaxime R F Ceftazidime Ceftazidime R F Ceftriaxone Ceftriaxone S F Ciprofloxacin Ciprofloxacin S F Gentamicin Gentamicin S F Levofloxacin Levofloxacin S F Meropenem Meropenem S F Tetracycline Tetracycline S F Ticarcillin/Ca Ticarcillin/Ca S F Tobramycin Tobramycin S F Trimethoprim/Sulfameth oxazole Trimethoprim/Sulfameth oxazole R F Organism: 2.2 Antibiotic Interpretation DANILO Status Ciprofloxacin Ciprofloxacin S F Gentamicin Gentamicin S F Levofloxacin Levofloxacin S F Moxifloxacin Moxifloxacin S F Nitrofurantoin Nitrofurantoin S F Oxacillin Oxacillin S F Rifampin Rifampin S F Tetracycline Tetracycline S F Trimethoprim/Sulfameth oxazole Trimethoprim/Sulfameth oxazole S F Vancomycin Vancomycin S F Urine Culture Result 1 See Below For Report Urine Culture Result 1 Acinetobacter lwoffii O:ACILWO Isolated O:CNSS Isolated Organism: 1.1 Antibiotic Interpretation DANILO Status Amikacin Amikacin S F Ampicillin/Sulbactam Ampicillin/Sulbactam S F Cefepime Cefepime R F Cefotaxime Cefotaxime R F Ceftazidime Ceftazidime R F Ceftriaxone Ceftriaxone S F Ciprofloxacin Ciprofloxacin S F Gentamicin Gentamicin S F Levofloxacin Levofloxacin S F Meropenem Meropenem S F Tetracycline Tetracycline S F Ticarcillin/Ca Ticarcillin/Ca S F Tobramycin Tobramycin S F Trimethoprim/Sulfameth oxazole Trimethoprim/Sulfameth oxazole R F Organism: 1.2 Antibiotic Interpretation DANILO Status Ciprofloxacin Ciprofloxacin S F Gentamicin Gentamicin S F Levofloxacin Levofloxacin S F Moxifloxacin Moxifloxacin S F Nitrofurantoin Nitrofurantoin S F Oxacillin Oxacillin S F Rifampin Rifampin S F Tetracycline Tetracycline S F Trimethoprim/Sulfameth oxazole Trimethoprim/Sulfameth oxazole S F Vancomycin Vancomycin S F Organism: 2.1 Antibiotic Interpretation DANILO Status Amikacin Amikacin S F Ampicillin/Sulbactam Ampicillin/Sulbactam S F Cefepime Cefepime R F Cefotaxime Cefotaxime R F Ceftazidime Ceftazidime R F Ceftriaxone Ceftriaxone S F Ciprofloxacin Ciprofloxacin S F Gentamicin Gentamicin S F Levofloxacin Levofloxacin S F Meropenem Meropenem S F Tetracycline Tetracycline S F Ticarcillin/Ca Ticarcillin/Ca S F Tobramycin Tobramycin S F Trimethoprim/Sulfameth oxazole Trimethoprim/Sulfameth oxazole R F Organism: 2.2 Antibiotic Interpretation DANILO Status Ciprofloxacin Ciprofloxacin S F Gentamicin Gentamicin S F Levofloxacin Levofloxacin S F Moxifloxacin Moxifloxacin S F Nitrofurantoin Nitrofurantoin S F Oxacillin Oxacillin S F Rifampin Rifampin S F Tetracycline Tetracycline S F Trimethoprim/Sulfameth oxazole Trimethoprim/Sulfameth oxazole S F Vancomycin Vancomycin S F Urine Culture Result 1 See Below For Report Urine Culture Result 1 Acinetobacter lwoffii O:ACILWO Isolated O:CNSS Isolated Organism: 1.1 Antibiotic Interpretation DANILO Status Amikacin Amikacin S F Ampicillin/Sulbactam Ampicillin/Sulbactam S F Cefepime Cefepime R F Cefotaxime Cefotaxime R F Ceftazidime Ceftazidime R F Ceftriaxone Ceftriaxone S F Ciprofloxacin Ciprofloxacin S F Gentamicin Gentamicin S F Levofloxacin Levofloxacin S F Meropenem Meropenem S F Tetracycline Tetracycline S F Ticarcillin/Ca Ticarcillin/Ca S F Tobramycin Tobramycin S F Trimethoprim/Sulfameth oxazole Trimethoprim/Sulfameth oxazole R F Organism: 1.2 Antibiotic Interpretation DANILO Status Ciprofloxacin Ciprofloxacin S F Gentamicin Gentamicin S F Levofloxacin Levofloxacin S F Moxifloxacin Moxifloxacin S F Nitrofurantoin Nitrofurantoin S F Oxacillin Oxacillin S F Rifampin Rifampin S F Tetracycline Tetracycline S F Trimethoprim/Sulfameth oxazole Trimethoprim/Sulfameth oxazole S F Vancomycin Vancomycin S F Organism: 2.1 Antibiotic Interpretation DANILO Status Amikacin Amikacin S F Ampicillin/Sulbactam Ampicillin/Sulbactam S F Cefepime Cefepime R F Cefotaxime Cefotaxime R F Ceftazidime Ceftazidime R F Ceftriaxone Ceftriaxone S F Ciprofloxacin Ciprofloxacin S F Gentamicin Gentamicin S F Levofloxacin Levofloxacin S F Meropenem Meropenem S F Tetracycline Tetracycline S F Ticarcillin/Ca Ticarcillin/Ca S F Tobramycin Tobramycin S F Trimethoprim/Sulfameth oxazole Trimethoprim/Sulfameth oxazole R F Organism: 2.2 Antibiotic Interpretation DANILO Status Ciprofloxacin Ciprofloxacin S F Gentamicin Gentamicin S F Levofloxacin Levofloxacin S F Moxifloxacin Moxifloxacin S F Nitrofurantoin Nitrofurantoin S F Oxacillin Oxacillin S F Rifampin Rifampin S F Tetracycline Tetracycline S F Trimethoprim/Sulfameth oxazole Trimethoprim/Sulfameth oxazole S F Vancomycin Vancomycin S F Urine Culture Result 1 See Below For Report Urine Culture Result 1 Acinetobacter lwoffii O:ACILWO Isolated O:CNSS Isolated Organism: 1.1 Antibiotic Interpretation DANILO Status Amikacin Amikacin S F Ampicillin/Sulbactam Ampicillin/Sulbactam S F Cefepime Cefepime R F Cefotaxime Cefotaxime R F Ceftazidime Ceftazidime R F Ceftriaxone Ceftriaxone S F Ciprofloxacin Ciprofloxacin S F Gentamicin Gentamicin S F Levofloxacin Levofloxacin S F Meropenem Meropenem S F Tetracycline Tetracycline S F Ticarcillin/Ca Ticarcillin/Ca S F Tobramycin Tobramycin S F Trimethoprim/Sulfameth oxazole Trimethoprim/Sulfameth oxazole R F Organism: 1.2 Antibiotic Interpretation DANILO Status Ciprofloxacin Ciprofloxacin S F Gentamicin Gentamicin S F Levofloxacin Levofloxacin S F Moxifloxacin Moxifloxacin S F Nitrofurantoin Nitrofurantoin S F Oxacillin Oxacillin S F Rifampin Rifampin S F Tetracycline Tetracycline S F Trimethoprim/Sulfameth oxazole Trimethoprim/Sulfameth oxazole S F Vancomycin Vancomycin S F Organism: 2.1 Antibiotic Interpretation DANILO Status Amikacin Amikacin S F Ampicillin/Sulbactam Ampicillin/Sulbactam S F Cefepime Cefepime R F Cefotaxime Cefotaxime R F Ceftazidime Ceftazidime R F Ceftriaxone Ceftriaxone S F Ciprofloxacin Ciprofloxacin S F Gentamicin Gentamicin S F Levofloxacin Levofloxacin S F Meropenem Meropenem S F Tetracycline Tetracycline S F Ticarcillin/Ca Ticarcillin/Ca S F Tobramycin Tobramycin S F Trimethoprim/Sulfameth oxazole Trimethoprim/Sulfameth oxazole R F Organism: 2.2 Antibiotic Interpretation DANILO Status Ciprofloxacin Ciprofloxacin S F Gentamicin Gentamicin S F Levofloxacin Levofloxacin S F Moxifloxacin Moxifloxacin S F Nitrofurantoin Nitrofurantoin S F Oxacillin Oxacillin S F Rifampin Rifampin S F Tetracycline Tetracycline S F Trimethoprim/Sulfameth oxazole Trimethoprim/Sulfameth oxazole S F Vancomycin Vancomycin S F Urine Culture Result 1 See Below For Report Urine Culture Result 1 Acinetobacter lwoffii O:ACILWO Isolated O:CNSS Isolated Organism: 1.1 Antibiotic Interpretation DANILO Status Amikacin Amikacin S F Ampicillin/Sulbactam Ampicillin/Sulbactam S F Cefepime Cefepime R F Cefotaxime Cefotaxime R F Ceftazidime Ceftazidime R F Ceftriaxone Ceftriaxone S F Ciprofloxacin Ciprofloxacin S F Gentamicin Gentamicin S F Levofloxacin Levofloxacin S F Meropenem Meropenem S F Tetracycline Tetracycline S F Ticarcillin/Ca Ticarcillin/Ca S F Tobramycin Tobramycin S F Trimethoprim/Sulfameth oxazole Trimethoprim/Sulfameth oxazole R F Organism: 1.2 Antibiotic Interpretation DANILO Status Ciprofloxacin Ciprofloxacin S F Gentamicin Gentamicin S F Levofloxacin Levofloxacin S F Moxifloxacin Moxifloxacin S F Nitrofurantoin Nitrofurantoin S F Oxacillin Oxacillin S F Rifampin Rifampin S F Tetracycline Tetracycline S F Trimethoprim/Sulfameth oxazole Trimethoprim/Sulfameth oxazole S F Vancomycin Vancomycin S F Organism: 2.1 Antibiotic Interpretation DANILO Status Amikacin Amikacin S F Ampicillin/Sulbactam Ampicillin/Sulbactam S F Cefepime Cefepime R F Cefotaxime Cefotaxime R F Ceftazidime Ceftazidime R F Ceftriaxone Ceftriaxone S F Ciprofloxacin Ciprofloxacin S F Gentamicin Gentamicin S F Levofloxacin Levofloxacin S F Meropenem Meropenem S F Tetracycline Tetracycline S F Ticarcillin/Ca Ticarcillin/Ca S F Tobramycin Tobramycin S F Trimethoprim/Sulfameth oxazole Trimethoprim/Sulfameth oxazole R F Organism: 2.2 Antibiotic Interpretation DANILO Status Ciprofloxacin Ciprofloxacin S F Gentamicin Gentamicin S F Levofloxacin Levofloxacin S F Moxifloxacin Moxifloxacin S F Nitrofurantoin Nitrofurantoin S F Oxacillin Oxacillin S F Rifampin Rifampin S F Tetracycline Tetracycline S F Trimethoprim/Sulfameth oxazole Trimethoprim/Sulfameth oxazole S F Vancomycin Vancomycin S F Urine Culture Result 1 See Below For Report Urine Culture Result 1 Acinetobacter lwoffii O:ACILWO Isolated O:CNSS Isolated Organism: 1.1 Antibiotic Interpretation DANILO Status Amikacin Amikacin S F Ampicillin/Sulbactam Ampicillin/Sulbactam S F Cefepime Cefepime R F Cefotaxime Cefotaxime R F Ceftazidime Ceftazidime R F Ceftriaxone Ceftriaxone S F Ciprofloxacin Ciprofloxacin S F Gentamicin Gentamicin S F Levofloxacin Levofloxacin S F Meropenem Meropenem S F Tetracycline Tetracycline S F Ticarcillin/Ca Ticarcillin/Ca S F Tobramycin Tobramycin S F Trimethoprim/Sulfameth oxazole Trimethoprim/Sulfameth oxazole R F Organism: 1.2 Antibiotic Interpretation DANILO Status Ciprofloxacin Ciprofloxacin S F Gentamicin Gentamicin S F Levofloxacin Levofloxacin S F Moxifloxacin Moxifloxacin S F Nitrofurantoin Nitrofurantoin S F Oxacillin Oxacillin S F Rifampin Rifampin S F Tetracycline Tetracycline S F Trimethoprim/Sulfameth oxazole Trimethoprim/Sulfameth oxazole S F Vancomycin Vancomycin S F Organism: 2.1 Antibiotic Interpretation DANILO Status Amikacin Amikacin S F Ampicillin/Sulbactam Ampicillin/Sulbactam S F Cefepime Cefepime R F Cefotaxime Cefotaxime R F Ceftazidime Ceftazidime R F Ceftriaxone Ceftriaxone S F Ciprofloxacin Ciprofloxacin S F Gentamicin Gentamicin S F Levofloxacin Levofloxacin S F Meropenem Meropenem S F Tetracycline Tetracycline S F Ticarcillin/Ca Ticarcillin/Ca S F Tobramycin Tobramycin S F Trimethoprim/Sulfameth oxazole Trimethoprim/Sulfameth oxazole R F Organism: 2.2 Antibiotic Interpretation DANILO Status Ciprofloxacin Ciprofloxacin S F Gentamicin Gentamicin S F Levofloxacin Levofloxacin S F Moxifloxacin Moxifloxacin S F Nitrofurantoin Nitrofurantoin S F Oxacillin Oxacillin S F Rifampin Rifampin S F Tetracycline Tetracycline S F Trimethoprim/Sulfameth oxazole Trimethoprim/Sulfameth oxazole S F Vancomycin Vancomycin S F Urine Culture Result 1 See Below For Report Urine Culture Result 1 Acinetobacter lwoffii O:ACILWO Isolated O:CNSS Isolated Organism: 1.1 Antibiotic Interpretation DANILO Status Amikacin Amikacin S F Ampicillin/Sulbactam Ampicillin/Sulbactam S F Cefepime Cefepime R F Cefotaxime Cefotaxime R F Ceftazidime Ceftazidime R F Ceftriaxone Ceftriaxone S F Ciprofloxacin Ciprofloxacin S F Gentamicin Gentamicin S F Levofloxacin Levofloxacin S F Meropenem Meropenem S F Tetracycline Tetracycline S F Ticarcillin/Ca Ticarcillin/Ca S F Tobramycin Tobramycin S F Trimethoprim/Sulfameth oxazole Trimethoprim/Sulfameth oxazole R F Organism: 1.2 Antibiotic Interpretation DANILO Status Ciprofloxacin Ciprofloxacin S F Gentamicin Gentamicin S F Levofloxacin Levofloxacin S F Moxifloxacin Moxifloxacin S F Nitrofurantoin Nitrofurantoin S F Oxacillin Oxacillin S F Rifampin Rifampin S F Tetracycline Tetracycline S F Trimethoprim/Sulfameth oxazole Trimethoprim/Sulfameth oxazole S F Vancomycin Vancomycin S F Organism: 2.1 Antibiotic Interpretation DANILO Status Amikacin Amikacin S F Ampicillin/Sulbactam Ampicillin/Sulbactam S F Cefepime Cefepime R F Cefotaxime Cefotaxime R F Ceftazidime Ceftazidime R F Ceftriaxone Ceftriaxone S F Ciprofloxacin Ciprofloxacin S F Gentamicin Gentamicin S F Levofloxacin Levofloxacin S F Meropenem Meropenem S F Tetracycline Tetracycline S F Ticarcillin/Ca Ticarcillin/Ca S F Tobramycin Tobramycin S F Trimethoprim/Sulfameth oxazole Trimethoprim/Sulfameth oxazole R F Organism: 2.2 Antibiotic Interpretation DANILO Status Ciprofloxacin Ciprofloxacin S F Gentamicin Gentamicin S F Levofloxacin Levofloxacin S F Moxifloxacin Moxifloxacin S F Nitrofurantoin Nitrofurantoin S F Oxacillin Oxacillin S F Rifampin Rifampin S F Tetracycline Tetracycline S F Trimethoprim/Sulfameth oxazole Trimethoprim/Sulfameth oxazole S F Vancomycin Vancomycin S F Urine Culture Result 1 See Below For Report Urine Culture Result 1 Acinetobacter lwoffii O:ACILWO Isolated O:CNSS Isolated Organism: 1.1 Antibiotic Interpretation DANILO Status Amikacin Amikacin S F Ampicillin/Sulbactam Ampicillin/Sulbactam S F Cefepime Cefepime R F Cefotaxime Cefotaxime R F Ceftazidime Ceftazidime R F Ceftriaxone Ceftriaxone S F Ciprofloxacin Ciprofloxacin S F Gentamicin Gentamicin S F Levofloxacin Levofloxacin S F Meropenem Meropenem S F Tetracycline Tetracycline S F Ticarcillin/Ca Ticarcillin/Ca S F Tobramycin Tobramycin S F Trimethoprim/Sulfameth oxazole Trimethoprim/Sulfameth oxazole R F Organism: 1.2 Antibiotic Interpretation DANILO Status Ciprofloxacin Ciprofloxacin S F Gentamicin Gentamicin S F Levofloxacin Levofloxacin S F Moxifloxacin Moxifloxacin S F Nitrofurantoin Nitrofurantoin S F Oxacillin Oxacillin S F Rifampin Rifampin S F Tetracycline Tetracycline S F Trimethoprim/Sulfameth oxazole Trimethoprim/Sulfameth oxazole S F Vancomycin Vancomycin S F Organism: 2.1 Antibiotic Interpretation DANILO Status Amikacin Amikacin S F Ampicillin/Sulbactam Ampicillin/Sulbactam S F Cefepime Cefepime R F Cefotaxime Cefotaxime R F Ceftazidime Ceftazidime R F Ceftriaxone Ceftriaxone S F Ciprofloxacin Ciprofloxacin S F Gentamicin Gentamicin S F Levofloxacin Levofloxacin S F Meropenem Meropenem S F Tetracycline Tetracycline S F Ticarcillin/Ca Ticarcillin/Ca S F Tobramycin Tobramycin S F Trimethoprim/Sulfameth oxazole Trimethoprim/Sulfameth oxazole R F Organism: 2.2 Antibiotic Interpretation DANILO Status Ciprofloxacin Ciprofloxacin S F Gentamicin Gentamicin S F Levofloxacin Levofloxacin S F Moxifloxacin Moxifloxacin S F Nitrofurantoin Nitrofurantoin S F Oxacillin Oxacillin S F Rifampin Rifampin S F Tetracycline Tetracycline S F Trimethoprim/Sulfameth oxazole Trimethoprim/Sulfameth oxazole S F Vancomycin Vancomycin S F Urine Culture Result 1 See Below For Report Urine Culture Result 1 Acinetobacter lwoffii O:ACILWO Isolated O:CNSS Isolated Organism: 1.1 Antibiotic Interpretation DANILO Status Amikacin Amikacin S F Ampicillin/Sulbactam Ampicillin/Sulbactam S F Cefepime Cefepime R F Cefotaxime Cefotaxime R F Ceftazidime Ceftazidime R F Ceftriaxone Ceftriaxone S F Ciprofloxacin Ciprofloxacin S F Gentamicin Gentamicin S F Levofloxacin Levofloxacin S F Meropenem Meropenem S F Tetracycline Tetracycline S F Ticarcillin/Ca Ticarcillin/Ca S F Tobramycin Tobramycin S F Trimethoprim/Sulfameth oxazole Trimethoprim/Sulfameth oxazole R F Organism: 1.2 Antibiotic Interpretation DANILO Status Ciprofloxacin Ciprofloxacin S F Gentamicin Gentamicin S F Levofloxacin Levofloxacin S F Moxifloxacin Moxifloxacin S F Nitrofurantoin Nitrofurantoin S F Oxacillin Oxacillin S F Rifampin Rifampin S F Tetracycline Tetracycline S F Trimethoprim/Sulfameth oxazole Trimethoprim/Sulfameth oxazole S F Vancomycin Vancomycin S F Organism: 2.1 Antibiotic Interpretation ADNILO Status Amikacin Amikacin S F Ampicillin/Sulbactam Ampicillin/Sulbactam S F Cefepime Cefepime R F Cefotaxime Cefotaxime R F Ceftazidime Ceftazidime R F Ceftriaxone Ceftriaxone S F Ciprofloxacin Ciprofloxacin S F Gentamicin Gentamicin S F Levofloxacin Levofloxacin S F Meropenem Meropenem S F Tetracycline Tetracycline S F Ticarcillin/Ca Ticarcillin/Ca S F Tobramycin Tobramycin S F Trimethoprim/Sulfameth oxazole Trimethoprim/Sulfameth oxazole R F Organism: 2.2 Antibiotic Interpretation DANILO Status Ciprofloxacin Ciprofloxacin S F Gentamicin Gentamicin S F Levofloxacin Levofloxacin S F Moxifloxacin Moxifloxacin S F Nitrofurantoin Nitrofurantoin S F Oxacillin Oxacillin S F Rifampin Rifampin S F Tetracycline Tetracycline S F Trimethoprim/Sulfameth oxazole Trimethoprim/Sulfameth oxazole S F Vancomycin Vancomycin S F Urine Culture Result 1 See Below For Report Urine Culture Result 1 Acinetobacter lwoffii O:ACILWO Isolated O:CNSS Isolated Organism: 1.1 Antibiotic Interpretation DANILO Status Amikacin Amikacin S F Ampicillin/Sulbactam Ampicillin/Sulbactam S F Cefepime Cefepime R F Cefotaxime Cefotaxime R F Ceftazidime Ceftazidime R F Ceftriaxone Ceftriaxone S F Ciprofloxacin Ciprofloxacin S F Gentamicin Gentamicin S F Levofloxacin Levofloxacin S F Meropenem Meropenem S F Tetracycline Tetracycline S F Ticarcillin/Ca Ticarcillin/Ca S F Tobramycin Tobramycin S F Trimethoprim/Sulfameth oxazole Trimethoprim/Sulfameth oxazole R F Organism: 1.2 Antibiotic Interpretation DANILO Status Ciprofloxacin Ciprofloxacin S F Gentamicin Gentamicin S F Levofloxacin Levofloxacin S F Moxifloxacin Moxifloxacin S F Nitrofurantoin Nitrofurantoin S F Oxacillin Oxacillin S F Rifampin Rifampin S F Tetracycline Tetracycline S F Trimethoprim/Sulfameth oxazole Trimethoprim/Sulfameth oxazole S F Vancomycin Vancomycin S F Organism: 2.1 Antibiotic Interpretation DANILO Status Amikacin Amikacin S F Ampicillin/Sulbactam Ampicillin/Sulbactam S F Cefepime Cefepime R F Cefotaxime Cefotaxime R F Ceftazidime Ceftazidime R F Ceftriaxone Ceftriaxone S F Ciprofloxacin Ciprofloxacin S F Gentamicin Gentamicin S F Levofloxacin Levofloxacin S F Meropenem Meropenem S F Tetracycline Tetracycline S F Ticarcillin/Ca Ticarcillin/Ca S F Tobramycin Tobramycin S F Trimethoprim/Sulfameth oxazole Trimethoprim/Sulfameth oxazole R F Organism: 2.2 Antibiotic Interpretation DANILO Status Ciprofloxacin Ciprofloxacin S F Gentamicin Gentamicin S F Levofloxacin Levofloxacin S F Moxifloxacin Moxifloxacin S F Nitrofurantoin Nitrofurantoin S F Oxacillin Oxacillin S F Rifampin Rifampin S F Tetracycline Tetracycline S F Trimethoprim/Sulfameth oxazole Trimethoprim/Sulfameth oxazole S F Vancomycin Vancomycin S F Urine Culture Result 1 See Below For Report Urine Culture Result 1 Acinetobacter lwoffii O:ACILWO Isolated O:CNSS Isolated Organism: 1.1 Antibiotic Interpretation DANILO Status Amikacin Amikacin S F Ampicillin/Sulbactam Ampicillin/Sulbactam S F Cefepime Cefepime R F Cefotaxime Cefotaxime R F Ceftazidime Ceftazidime R F Ceftriaxone Ceftriaxone S F Ciprofloxacin Ciprofloxacin S F Gentamicin Gentamicin S F Levofloxacin Levofloxacin S F Meropenem Meropenem S F Tetracycline Tetracycline S F Ticarcillin/Ca Ticarcillin/Ca S F Tobramycin Tobramycin S F Trimethoprim/Sulfameth oxazole Trimethoprim/Sulfameth oxazole R F Organism: 1.2 Antibiotic Interpretation DANILO Status Ciprofloxacin Ciprofloxacin S F Gentamicin Gentamicin S F Levofloxacin Levofloxacin S F Moxifloxacin Moxifloxacin S F Nitrofurantoin Nitrofurantoin S F Oxacillin Oxacillin S F Rifampin Rifampin S F Tetracycline Tetracycline S F Trimethoprim/Sulfameth oxazole Trimethoprim/Sulfameth oxazole S F Vancomycin Vancomycin S F Organism: 2.1 Antibiotic Interpretation DANILO Status Amikacin Amikacin S F Ampicillin/Sulbactam Ampicillin/Sulbactam S F Cefepime Cefepime R F Cefotaxime Cefotaxime R F Ceftazidime Ceftazidime R F Ceftriaxone Ceftriaxone S F Ciprofloxacin Ciprofloxacin S F Gentamicin Gentamicin S F Levofloxacin Levofloxacin S F Meropenem Meropenem S F Tetracycline Tetracycline S F Ticarcillin/Ca Ticarcillin/Ca S F Tobramycin Tobramycin S F Trimethoprim/Sulfameth oxazole Trimethoprim/Sulfameth oxazole R F Organism: 2.2 Antibiotic Interpretation DANILO Status Ciprofloxacin Ciprofloxacin S F Gentamicin Gentamicin S F Levofloxacin Levofloxacin S F Moxifloxacin Moxifloxacin S F Nitrofurantoin Nitrofurantoin S F Oxacillin Oxacillin S F Rifampin Rifampin S F Tetracycline Tetracycline S F Trimethoprim/Sulfameth oxazole Trimethoprim/Sulfameth oxazole S F Vancomycin Vancomycin S F Urine Culture Result 1 See Below For Report Urine Culture Result 1 Acinetobacter lwoffii O:ACILWO Isolated O:CNSS Isolated Organism: 1.1 Antibiotic Interpretation DANILO Status Amikacin Amikacin S F Ampicillin/Sulbactam Ampicillin/Sulbactam S F Cefepime Cefepime R F Cefotaxime Cefotaxime R F Ceftazidime Ceftazidime R F Ceftriaxone Ceftriaxone S F Ciprofloxacin Ciprofloxacin S F Gentamicin Gentamicin S F Levofloxacin Levofloxacin S F Meropenem Meropenem S F Tetracycline Tetracycline S F Ticarcillin/Ca Ticarcillin/Ca S F Tobramycin Tobramycin S F Trimethoprim/Sulfameth oxazole Trimethoprim/Sulfameth oxazole R F Organism: 1.2 Antibiotic Interpretation DANILO Status Ciprofloxacin Ciprofloxacin S F Gentamicin Gentamicin S F Levofloxacin Levofloxacin S F Moxifloxacin Moxifloxacin S F Nitrofurantoin Nitrofurantoin S F Oxacillin Oxacillin S F Rifampin Rifampin S F Tetracycline Tetracycline S F Trimethoprim/Sulfameth oxazole Trimethoprim/Sulfameth oxazole S F Vancomycin Vancomycin S F Organism: 2.1 Antibiotic Interpretation DANILO Status Amikacin Amikacin S F Ampicillin/Sulbactam Ampicillin/Sulbactam S F Cefepime Cefepime R F Cefotaxime Cefotaxime R F Ceftazidime Ceftazidime R F Ceftriaxone Ceftriaxone S F Ciprofloxacin Ciprofloxacin S F Gentamicin Gentamicin S F Levofloxacin Levofloxacin S F Meropenem Meropenem S F Tetracycline Tetracycline S F Ticarcillin/Ca Ticarcillin/Ca S F Tobramycin Tobramycin S F Trimethoprim/Sulfameth oxazole Trimethoprim/Sulfameth oxazole R F Organism: 2.2 Antibiotic Interpretation DANILO Status Ciprofloxacin Ciprofloxacin S F Gentamicin Gentamicin S F Levofloxacin Levofloxacin S F Moxifloxacin Moxifloxacin S F Nitrofurantoin Nitrofurantoin S F Oxacillin Oxacillin S F Rifampin Rifampin S F Tetracycline Tetracycline S F Trimethoprim/Sulfameth oxazole Trimethoprim/Sulfameth oxazole S F Vancomycin Vancomycin S F Urine Culture Result 1 See Below For Report Urine Culture Result 1 Acinetobacter lwoffii O:ACILWO Isolated O:CNSS Isolated Organism: 1.1 Antibiotic Interpretation DANILO Status Amikacin Amikacin S F Ampicillin/Sulbactam Ampicillin/Sulbactam S F Cefepime Cefepime R F Cefotaxime Cefotaxime R F Ceftazidime Ceftazidime R F Ceftriaxone Ceftriaxone S F Ciprofloxacin Ciprofloxacin S F Gentamicin Gentamicin S F Levofloxacin Levofloxacin S F Meropenem Meropenem S F Tetracycline Tetracycline S F Ticarcillin/Ca Ticarcillin/Ca S F Tobramycin Tobramycin S F Trimethoprim/Sulfameth oxazole Trimethoprim/Sulfameth oxazole R F Organism: 1.2 Antibiotic Interpretation DANILO Status Ciprofloxacin Ciprofloxacin S F Gentamicin Gentamicin S F Levofloxacin Levofloxacin S F Moxifloxacin Moxifloxacin S F Nitrofurantoin Nitrofurantoin S F Oxacillin Oxacillin S F Rifampin Rifampin S F Tetracycline Tetracycline S F Trimethoprim/Sulfameth oxazole Trimethoprim/Sulfameth oxazole S F Vancomycin Vancomycin S F Organism: 2.1 Antibiotic Interpretation DANILO Status Amikacin Amikacin S F Ampicillin/Sulbactam Ampicillin/Sulbactam S F Cefepime Cefepime R F Cefotaxime Cefotaxime R F Ceftazidime Ceftazidime R F Ceftriaxone Ceftriaxone S F Ciprofloxacin Ciprofloxacin S F Gentamicin Gentamicin S F Levofloxacin Levofloxacin S F Meropenem Meropenem S F Tetracycline Tetracycline S F Ticarcillin/Ca Ticarcillin/Ca S F Tobramycin Tobramycin S F Trimethoprim/Sulfameth oxazole Trimethoprim/Sulfameth oxazole R F Organism: 2.2 Antibiotic Interpretation DANILO Status Ciprofloxacin Ciprofloxacin S F Gentamicin Gentamicin S F Levofloxacin Levofloxacin S F Moxifloxacin Moxifloxacin S F Nitrofurantoin Nitrofurantoin S F Oxacillin Oxacillin S F Rifampin Rifampin S F Tetracycline Tetracycline S F Trimethoprim/Sulfameth oxazole Trimethoprim/Sulfameth oxazole S F Vancomycin Vancomycin S F Urine Culture Result 1 See Below For Report Urine Culture Result 1 Acinetobacter lwoffii O:ACILWO Isolated O:CNSS Isolated Organism: 1.1 Antibiotic Interpretation DANILO Status Amikacin Amikacin S F Ampicillin/Sulbactam Ampicillin/Sulbactam S F Cefepime Cefepime R F Cefotaxime Cefotaxime R F Ceftazidime Ceftazidime R F Ceftriaxone Ceftriaxone S F Ciprofloxacin Ciprofloxacin S F Gentamicin Gentamicin S F Levofloxacin Levofloxacin S F Meropenem Meropenem S F Tetracycline Tetracycline S F Ticarcillin/Ca Ticarcillin/Ca S F Tobramycin Tobramycin S F Trimethoprim/Sulfameth oxazole Trimethoprim/Sulfameth oxazole R F Organism: 1.2 Antibiotic Interpretation DANILO Status Ciprofloxacin Ciprofloxacin S F Gentamicin Gentamicin S F Levofloxacin Levofloxacin S F Moxifloxacin Moxifloxacin S F Nitrofurantoin Nitrofurantoin S F Oxacillin Oxacillin S F Rifampin Rifampin S F Tetracycline Tetracycline S F Trimethoprim/Sulfameth oxazole Trimethoprim/Sulfameth oxazole S F Vancomycin Vancomycin S F Organism: 2.1 Antibiotic Interpretation DANILO Status Amikacin Amikacin S F Ampicillin/Sulbactam Ampicillin/Sulbactam S F Cefepime Cefepime R F Cefotaxime Cefotaxime R F Ceftazidime Ceftazidime R F Ceftriaxone Ceftriaxone S F Ciprofloxacin Ciprofloxacin S F Gentamicin Gentamicin S F Levofloxacin Levofloxacin S F Meropenem Meropenem S F Tetracycline Tetracycline S F Ticarcillin/Ca Ticarcillin/Ca S F Tobramycin Tobramycin S F Trimethoprim/Sulfameth oxazole Trimethoprim/Sulfameth oxazole R F Organism: 2.2 Antibiotic Interpretation DANILO Status Ciprofloxacin Ciprofloxacin S F Gentamicin Gentamicin S F Levofloxacin Levofloxacin S F Moxifloxacin Moxifloxacin S F Nitrofurantoin Nitrofurantoin S F Oxacillin Oxacillin S F Rifampin Rifampin S F Tetracycline Tetracycline S F Trimethoprim/Sulfameth oxazole Trimethoprim/Sulfameth oxazole S F Vancomycin Vancomycin S F Urine Culture Result 1 See Below For Report Urine Culture Result 1 Acinetobacter lwoffii O:ACILWO Isolated O:CNSS Isolated Organism: 1.1 Antibiotic Interpretation DANILO Status Amikacin Amikacin S F Ampicillin/Sulbactam Ampicillin/Sulbactam S F Cefepime Cefepime R F Cefotaxime Cefotaxime R F Ceftazidime Ceftazidime R F Ceftriaxone Ceftriaxone S F Ciprofloxacin Ciprofloxacin S F Gentamicin Gentamicin S F Levofloxacin Levofloxacin S F Meropenem Meropenem S F Tetracycline Tetracycline S F Ticarcillin/Ca Ticarcillin/Ca S F Tobramycin Tobramycin S F Trimethoprim/Sulfameth oxazole Trimethoprim/Sulfameth oxazole R F Organism: 1.2 Antibiotic Interpretation DANILO Status Ciprofloxacin Ciprofloxacin S F Gentamicin Gentamicin S F Levofloxacin Levofloxacin S F Moxifloxacin Moxifloxacin S F Nitrofurantoin Nitrofurantoin S F Oxacillin Oxacillin S F Rifampin Rifampin S F Tetracycline Tetracycline S F Trimethoprim/Sulfameth oxazole Trimethoprim/Sulfameth oxazole S F Vancomycin Vancomycin S F Organism: 2.1 Antibiotic Interpretation DANILO Status Amikacin Amikacin S F Ampicillin/Sulbactam Ampicillin/Sulbactam S F Cefepime Cefepime R F Cefotaxime Cefotaxime R F Ceftazidime Ceftazidime R F Ceftriaxone Ceftriaxone S F Ciprofloxacin Ciprofloxacin S F Gentamicin Gentamicin S F Levofloxacin Levofloxacin S F Meropenem Meropenem S F Tetracycline Tetracycline S F Ticarcillin/Ca Ticarcillin/Ca S F Tobramycin Tobramycin S F Trimethoprim/Sulfameth oxazole Trimethoprim/Sulfameth oxazole R F Organism: 2.2 Antibiotic Interpretation DANILO Status Ciprofloxacin Ciprofloxacin S F Gentamicin Gentamicin S F Levofloxacin Levofloxacin S F Moxifloxacin Moxifloxacin S F Nitrofurantoin Nitrofurantoin S F Oxacillin Oxacillin S F Rifampin Rifampin S F Tetracycline Tetracycline S F Trimethoprim/Sulfameth oxazole Trimethoprim/Sulfameth oxazole S F Vancomycin Vancomycin S F Urine Culture Result 1 See Below For Report Urine Culture Result 1 Acinetobacter lwoffii O:ACILWO Isolated O:CNSS Isolated Organism: 1.1 Antibiotic Interpretation DANILO Status Amikacin Amikacin S F Ampicillin/Sulbactam Ampicillin/Sulbactam S F Cefepime Cefepime R F Cefotaxime Cefotaxime R F Ceftazidime Ceftazidime R F Ceftriaxone Ceftriaxone S F Ciprofloxacin Ciprofloxacin S F Gentamicin Gentamicin S F Levofloxacin Levofloxacin S F Meropenem Meropenem S F Tetracycline Tetracycline S F Ticarcillin/Ca Ticarcillin/Ca S F Tobramycin Tobramycin S F Trimethoprim/Sulfameth oxazole Trimethoprim/Sulfameth oxazole R F Organism: 1.2 Antibiotic Interpretation DANILO Status Ciprofloxacin Ciprofloxacin S F Gentamicin Gentamicin S F Levofloxacin Levofloxacin S F Moxifloxacin Moxifloxacin S F Nitrofurantoin Nitrofurantoin S F Oxacillin Oxacillin S F Rifampin Rifampin S F Tetracycline Tetracycline S F Trimethoprim/Sulfameth oxazole Trimethoprim/Sulfameth oxazole S F Vancomycin Vancomycin S F Organism: 2.1 Antibiotic Interpretation DANILO Status Amikacin Amikacin S F Ampicillin/Sulbactam Ampicillin/Sulbactam S F Cefepime Cefepime R F Cefotaxime Cefotaxime R F Ceftazidime Ceftazidime R F Ceftriaxone Ceftriaxone S F Ciprofloxacin Ciprofloxacin S F Gentamicin Gentamicin S F Levofloxacin Levofloxacin S F Meropenem Meropenem S F Tetracycline Tetracycline S F Ticarcillin/Ca Ticarcillin/Ca S F Tobramycin Tobramycin S F Trimethoprim/Sulfameth oxazole Trimethoprim/Sulfameth oxazole R F Organism: 2.2 Antibiotic Interpretation DANILO Status Ciprofloxacin Ciprofloxacin S F Gentamicin Gentamicin S F Levofloxacin Levofloxacin S F Moxifloxacin Moxifloxacin S F Nitrofurantoin Nitrofurantoin S F Oxacillin Oxacillin S F Rifampin Rifampin S F Tetracycline Tetracycline S F Trimethoprim/Sulfameth oxazole Trimethoprim/Sulfameth oxazole S F Vancomycin Vancomycin S F Urine Culture Result 1 See Below For Report Urine Culture Result 1 Acinetobacter lwoffii O:ACILWO Isolated O:CNSS Isolated Organism: 1.1 Antibiotic Interpretation DANILO Status Amikacin Amikacin S F Ampicillin/Sulbactam Ampicillin/Sulbactam S F Cefepime Cefepime R F Cefotaxime Cefotaxime R F Ceftazidime Ceftazidime R F Ceftriaxone Ceftriaxone S F Ciprofloxacin Ciprofloxacin S F Gentamicin Gentamicin S F Levofloxacin Levofloxacin S F Meropenem Meropenem S F Tetracycline Tetracycline S F Ticarcillin/Ca Ticarcillin/Ca S F Tobramycin Tobramycin S F Trimethoprim/Sulfameth oxazole Trimethoprim/Sulfameth oxazole R F Organism: 1.2 Antibiotic Interpretation DANILO Status Ciprofloxacin Ciprofloxacin S F Gentamicin Gentamicin S F Levofloxacin Levofloxacin S F Moxifloxacin Moxifloxacin S F Nitrofurantoin Nitrofurantoin S F Oxacillin Oxacillin S F Rifampin Rifampin S F Tetracycline Tetracycline S F Trimethoprim/Sulfameth oxazole Trimethoprim/Sulfameth oxazole S F Vancomycin Vancomycin S F Organism: 2.1 Antibiotic Interpretation DANILO Status Amikacin Amikacin S F Ampicillin/Sulbactam Ampicillin/Sulbactam S F Cefepime Cefepime R F Cefotaxime Cefotaxime R F Ceftazidime Ceftazidime R F Ceftriaxone Ceftriaxone S F Ciprofloxacin Ciprofloxacin S F Gentamicin Gentamicin S F Levofloxacin Levofloxacin S F Meropenem Meropenem S F Tetracycline Tetracycline S F Ticarcillin/Ca Ticarcillin/Ca S F Tobramycin Tobramycin S F Trimethoprim/Sulfameth oxazole Trimethoprim/Sulfameth oxazole R F Organism: 2.2 Antibiotic Interpretation DANILO Status Ciprofloxacin Ciprofloxacin S F Gentamicin Gentamicin S F Levofloxacin Levofloxacin S F Moxifloxacin Moxifloxacin S F Nitrofurantoin Nitrofurantoin S F Oxacillin Oxacillin S F Rifampin Rifampin S F Tetracycline Tetracycline S F Trimethoprim/Sulfameth oxazole Trimethoprim/Sulfameth oxazole S F Vancomycin Vancomycin S F Urine Culture Result 1 See Below For Report Urine Culture Result 1 Acinetobacter lwoffii O:ACILWO Isolated O:CNSS Isolated Organism: 1.1 Antibiotic Interpretation DANILO Status Amikacin Amikacin S F Ampicillin/Sulbactam Ampicillin/Sulbactam S F Cefepime Cefepime R F Cefotaxime Cefotaxime R F Ceftazidime Ceftazidime R F Ceftriaxone Ceftriaxone S F Ciprofloxacin Ciprofloxacin S F Gentamicin Gentamicin S F Levofloxacin Levofloxacin S F Meropenem Meropenem S F Tetracycline Tetracycline S F Ticarcillin/Ca Ticarcillin/Ca S F Tobramycin Tobramycin S F Trimethoprim/Sulfameth oxazole Trimethoprim/Sulfameth oxazole R F Organism: 1.2 Antibiotic Interpretation DAINLO Status Ciprofloxacin Ciprofloxacin S F Gentamicin Gentamicin S F Levofloxacin Levofloxacin S F Moxifloxacin Moxifloxacin S F Nitrofurantoin Nitrofurantoin S F Oxacillin Oxacillin S F Rifampin Rifampin S F Tetracycline Tetracycline S F Trimethoprim/Sulfameth oxazole Trimethoprim/Sulfameth oxazole S F Vancomycin Vancomycin S F Organism: 2.1 Antibiotic Interpretation DANILO Status Amikacin Amikacin S F Ampicillin/Sulbactam Ampicillin/Sulbactam S F Cefepime Cefepime R F Cefotaxime Cefotaxime R F Ceftazidime Ceftazidime R F Ceftriaxone Ceftriaxone S F Ciprofloxacin Ciprofloxacin S F Gentamicin Gentamicin S F Levofloxacin Levofloxacin S F Meropenem Meropenem S F Tetracycline Tetracycline S F Ticarcillin/Ca Ticarcillin/Ca S F Tobramycin Tobramycin S F Trimethoprim/Sulfameth oxazole Trimethoprim/Sulfameth oxazole R F Organism: 2.2 Antibiotic Interpretation DANILO Status Ciprofloxacin Ciprofloxacin S F Gentamicin Gentamicin S F Levofloxacin Levofloxacin S F Moxifloxacin Moxifloxacin S F Nitrofurantoin Nitrofurantoin S F Oxacillin Oxacillin S F Rifampin Rifampin S F Tetracycline Tetracycline S F Trimethoprim/Sulfameth oxazole Trimethoprim/Sulfameth oxazole S F Vancomycin Vancomycin S F Urine Culture Result 1 See Below For Report Urine Culture Result 1 Acinetobacter lwoffii O:ACILWO Isolated O:CNSS Isolated Organism: 1.1 Antibiotic Interpretation DANILO Status Amikacin Amikacin S F Ampicillin/Sulbactam Ampicillin/Sulbactam S F Cefepime Cefepime R F Cefotaxime Cefotaxime R F Ceftazidime Ceftazidime R F Ceftriaxone Ceftriaxone S F Ciprofloxacin Ciprofloxacin S F Gentamicin Gentamicin S F Levofloxacin Levofloxacin S F Meropenem Meropenem S F Tetracycline Tetracycline S F Ticarcillin/Ca Ticarcillin/Ca S F Tobramycin Tobramycin S F Trimethoprim/Sulfameth oxazole Trimethoprim/Sulfameth oxazole R F Organism: 1.2 Antibiotic Interpretation DANILO Status Ciprofloxacin Ciprofloxacin S F Gentamicin Gentamicin S F Levofloxacin Levofloxacin S F Moxifloxacin Moxifloxacin S F Nitrofurantoin Nitrofurantoin S F Oxacillin Oxacillin S F Rifampin Rifampin S F Tetracycline Tetracycline S F Trimethoprim/Sulfameth oxazole Trimethoprim/Sulfameth oxazole S F Vancomycin Vancomycin S F Organism: 2.1 Antibiotic Interpretation DANILO Status Amikacin Amikacin S F Ampicillin/Sulbactam Ampicillin/Sulbactam S F Cefepime Cefepime R F Cefotaxime Cefotaxime R F Ceftazidime Ceftazidime R F Ceftriaxone Ceftriaxone S F Ciprofloxacin Ciprofloxacin S F Gentamicin Gentamicin S F Levofloxacin Levofloxacin S F Meropenem Meropenem S F Tetracycline Tetracycline S F Ticarcillin/Ca Ticarcillin/Ca S F Tobramycin Tobramycin S F Trimethoprim/Sulfameth oxazole Trimethoprim/Sulfameth oxazole R F Organism: 2.2 Antibiotic Interpretation DANILO Status Ciprofloxacin Ciprofloxacin S F Gentamicin Gentamicin S F Levofloxacin Levofloxacin S F Moxifloxacin Moxifloxacin S F Nitrofurantoin Nitrofurantoin S F Oxacillin Oxacillin S F Rifampin Rifampin S F Tetracycline Tetracycline S F Trimethoprim/Sulfameth oxazole Trimethoprim/Sulfameth oxazole S F Vancomycin Vancomycin S F Urine Culture Result 1 See Below For Report Urine Culture Result 1 Acinetobacter lwoffii O:ACILWO Isolated O:CNSS Isolated Organism: 1.1 Antibiotic Interpretation DANILO Status Amikacin Amikacin S F Ampicillin/Sulbactam Ampicillin/Sulbactam S F Cefepime Cefepime R F Cefotaxime Cefotaxime R F Ceftazidime Ceftazidime R F Ceftriaxone Ceftriaxone S F Ciprofloxacin Ciprofloxacin S F Gentamicin Gentamicin S F Levofloxacin Levofloxacin S F Meropenem Meropenem S F Tetracycline Tetracycline S F Ticarcillin/Ca Ticarcillin/Ca S F Tobramycin Tobramycin S F Trimethoprim/Sulfameth oxazole Trimethoprim/Sulfameth oxazole R F Organism: 1.2 Antibiotic Interpretation DANILO Status Ciprofloxacin Ciprofloxacin S F Gentamicin Gentamicin S F Levofloxacin Levofloxacin S F Moxifloxacin Moxifloxacin S F Nitrofurantoin Nitrofurantoin S F Oxacillin Oxacillin S F Rifampin Rifampin S F Tetracycline Tetracycline S F Trimethoprim/Sulfameth oxazole Trimethoprim/Sulfameth oxazole S F Vancomycin Vancomycin S F Organism: 2.1 Antibiotic Interpretation DANILO Status Amikacin Amikacin S F Ampicillin/Sulbactam Ampicillin/Sulbactam S F Cefepime Cefepime R F Cefotaxime Cefotaxime R F Ceftazidime Ceftazidime R F Ceftriaxone Ceftriaxone S F Ciprofloxacin Ciprofloxacin S F Gentamicin Gentamicin S F Levofloxacin Levofloxacin S F Meropenem Meropenem S F Tetracycline Tetracycline S F Ticarcillin/Ca Ticarcillin/Ca S F Tobramycin Tobramycin S F Trimethoprim/Sulfameth oxazole Trimethoprim/Sulfameth oxazole R F Organism: 2.2 Antibiotic Interpretation DANILO Status Ciprofloxacin Ciprofloxacin S F Gentamicin Gentamicin S F Levofloxacin Levofloxacin S F Moxifloxacin Moxifloxacin S F Nitrofurantoin Nitrofurantoin S F Oxacillin Oxacillin S F Rifampin Rifampin S F Tetracycline Tetracycline S F Trimethoprim/Sulfameth oxazole Trimethoprim/Sulfameth oxazole S F Vancomycin Vancomycin S F Urine Culture Result 1 See Below For Report Urine Culture Result 1 Acinetobacter lwoffii O:ACILWO Isolated O:CNSS Isolated Organism: 1.1 Antibiotic Interpretation DANILO Status Amikacin Amikacin S F Ampicillin/Sulbactam Ampicillin/Sulbactam S F Cefepime Cefepime R F Cefotaxime Cefotaxime R F Ceftazidime Ceftazidime R F Ceftriaxone Ceftriaxone S F Ciprofloxacin Ciprofloxacin S F Gentamicin Gentamicin S F Levofloxacin Levofloxacin S F Meropenem Meropenem S F Tetracycline Tetracycline S F Ticarcillin/Ca Ticarcillin/Ca S F Tobramycin Tobramycin S F Trimethoprim/Sulfameth oxazole Trimethoprim/Sulfameth oxazole R F Organism: 1.2 Antibiotic Interpretation DANILO Status Ciprofloxacin Ciprofloxacin S F Gentamicin Gentamicin S F Levofloxacin Levofloxacin S F Moxifloxacin Moxifloxacin S F Nitrofurantoin Nitrofurantoin S F Oxacillin Oxacillin S F Rifampin Rifampin S F Tetracycline Tetracycline S F Trimethoprim/Sulfameth oxazole Trimethoprim/Sulfameth oxazole S F Vancomycin Vancomycin S F Organism: 2.1 Antibiotic Interpretation DANILO Status Amikacin Amikacin S F Ampicillin/Sulbactam Ampicillin/Sulbactam S F Cefepime Cefepime R F Cefotaxime Cefotaxime R F Ceftazidime Ceftazidime R F Ceftriaxone Ceftriaxone S F Ciprofloxacin Ciprofloxacin S F Gentamicin Gentamicin S F Levofloxacin Levofloxacin S F Meropenem Meropenem S F Tetracycline Tetracycline S F Ticarcillin/Ca Ticarcillin/Ca S F Tobramycin Tobramycin S F Trimethoprim/Sulfameth oxazole Trimethoprim/Sulfameth oxazole R F Organism: 2.2 Antibiotic Interpretation DANILO Status Ciprofloxacin Ciprofloxacin S F Gentamicin Gentamicin S F Levofloxacin Levofloxacin S F Moxifloxacin Moxifloxacin S F Nitrofurantoin Nitrofurantoin S F Oxacillin Oxacillin S F Rifampin Rifampin S F Tetracycline Tetracycline S F Trimethoprim/Sulfameth oxazole Trimethoprim/Sulfameth oxazole S F Vancomycin Vancomycin S F Urine Culture Result 1 See Below For Report Urine Culture Result 1 Acinetobacter lwoffii O:ACILWO Isolated O:CNSS Isolated Organism: 1.1 Antibiotic Interpretation DANILO Status Amikacin Amikacin S F Ampicillin/Sulbactam Ampicillin/Sulbactam S F Cefepime Cefepime R F Cefotaxime Cefotaxime R F Ceftazidime Ceftazidime R F Ceftriaxone Ceftriaxone S F Ciprofloxacin Ciprofloxacin S F Gentamicin Gentamicin S F Levofloxacin Levofloxacin S F Meropenem Meropenem S F Tetracycline Tetracycline S F Ticarcillin/Ca Ticarcillin/Ca S F Tobramycin Tobramycin S F Trimethoprim/Sulfameth oxazole Trimethoprim/Sulfameth oxazole R F Organism: 1.2 Antibiotic Interpretation DANILO Status Ciprofloxacin Ciprofloxacin S F Gentamicin Gentamicin S F Levofloxacin Levofloxacin S F Moxifloxacin Moxifloxacin S F Nitrofurantoin Nitrofurantoin S F Oxacillin Oxacillin S F Rifampin Rifampin S F Tetracycline Tetracycline S F Trimethoprim/Sulfameth oxazole Trimethoprim/Sulfameth oxazole S F Vancomycin Vancomycin S F Organism: 2.1 Antibiotic Interpretation DANILO Status Amikacin Amikacin S F Ampicillin/Sulbactam Ampicillin/Sulbactam S F Cefepime Cefepime R F Cefotaxime Cefotaxime R F Ceftazidime Ceftazidime R F Ceftriaxone Ceftriaxone S F Ciprofloxacin Ciprofloxacin S F Gentamicin Gentamicin S F Levofloxacin Levofloxacin S F Meropenem Meropenem S F Tetracycline Tetracycline S F Ticarcillin/Ca Ticarcillin/Ca S F Tobramycin Tobramycin S F Trimethoprim/Sulfameth oxazole Trimethoprim/Sulfameth oxazole R F Organism: 2.2 Antibiotic Interpretation DANILO Status Ciprofloxacin Ciprofloxacin S F Gentamicin Gentamicin S F Levofloxacin Levofloxacin S F Moxifloxacin Moxifloxacin S F Nitrofurantoin Nitrofurantoin S F Oxacillin Oxacillin S F Rifampin Rifampin S F Tetracycline Tetracycline S F Trimethoprim/Sulfameth oxazole Trimethoprim/Sulfameth oxazole S F Vancomycin Vancomycin S F Urine Culture Result 1 See Below For Report Urine Culture Result 1 Acinetobacter lwoffii O:ACILWO Isolated O:CNSS Isolated Organism: 1.1 Antibiotic Interpretation DANILO Status Amikacin Amikacin S F Ampicillin/Sulbactam Ampicillin/Sulbactam S F Cefepime Cefepime R F Cefotaxime Cefotaxime R F Ceftazidime Ceftazidime R F Ceftriaxone Ceftriaxone S F Ciprofloxacin Ciprofloxacin S F Gentamicin Gentamicin S F Levofloxacin Levofloxacin S F Meropenem Meropenem S F Tetracycline Tetracycline S F Ticarcillin/Ca Ticarcillin/Ca S F Tobramycin Tobramycin S F Trimethoprim/Sulfameth oxazole Trimethoprim/Sulfameth oxazole R F Organism: 1.2 Antibiotic Interpretation DANILO Status Ciprofloxacin Ciprofloxacin S F Gentamicin Gentamicin S F Levofloxacin Levofloxacin S F Moxifloxacin Moxifloxacin S F Nitrofurantoin Nitrofurantoin S F Oxacillin Oxacillin S F Rifampin Rifampin S F Tetracycline Tetracycline S F Trimethoprim/Sulfameth oxazole Trimethoprim/Sulfameth oxazole S F Vancomycin Vancomycin S F Organism: 2.1 Antibiotic Interpretation DANILO Status Amikacin Amikacin S F Ampicillin/Sulbactam Ampicillin/Sulbactam S F Cefepime Cefepime R F Cefotaxime Cefotaxime R F Ceftazidime Ceftazidime R F Ceftriaxone Ceftriaxone S F Ciprofloxacin Ciprofloxacin S F Gentamicin Gentamicin S F Levofloxacin Levofloxacin S F Meropenem Meropenem S F Tetracycline Tetracycline S F Ticarcillin/Ca Ticarcillin/Ca S F Tobramycin Tobramycin S F Trimethoprim/Sulfameth oxazole Trimethoprim/Sulfameth oxazole R F Organism: 2.2 Antibiotic Interpretation DANILO Status Ciprofloxacin Ciprofloxacin S F Gentamicin Gentamicin S F Levofloxacin Levofloxacin S F Moxifloxacin Moxifloxacin S F Nitrofurantoin Nitrofurantoin S F Oxacillin Oxacillin S F Rifampin Rifampin S F Tetracycline Tetracycline S F Trimethoprim/Sulfameth oxazole Trimethoprim/Sulfameth oxazole S F Vancomycin Vancomycin S F Urine Culture Result 1 See Below For Report Urine Culture Result 1 Acinetobacter lwoffii O:ACILWO Isolated O:CNSS Isolated Organism: 1.1 Antibiotic Interpretation DANILO Status Amikacin Amikacin S F Ampicillin/Sulbactam Ampicillin/Sulbactam S F Cefepime Cefepime R F Cefotaxime Cefotaxime R F Ceftazidime Ceftazidime R F Ceftriaxone Ceftriaxone S F Ciprofloxacin Ciprofloxacin S F Gentamicin Gentamicin S F Levofloxacin Levofloxacin S F Meropenem Meropenem S F Tetracycline Tetracycline S F Ticarcillin/Ca Ticarcillin/Ca S F Tobramycin Tobramycin S F Trimethoprim/Sulfameth oxazole Trimethoprim/Sulfameth oxazole R F Organism: 1.2 Antibiotic Interpretation DANILO Status Ciprofloxacin Ciprofloxacin S F Gentamicin Gentamicin S F Levofloxacin Levofloxacin S F Moxifloxacin Moxifloxacin S F Nitrofurantoin Nitrofurantoin S F Oxacillin Oxacillin S F Rifampin Rifampin S F Tetracycline Tetracycline S F Trimethoprim/Sulfameth oxazole Trimethoprim/Sulfameth oxazole S F Vancomycin Vancomycin S F Organism: 2.1 Antibiotic Interpretation DANILO Status Amikacin Amikacin S F Ampicillin/Sulbactam Ampicillin/Sulbactam S F Cefepime Cefepime R F Cefotaxime Cefotaxime R F Ceftazidime Ceftazidime R F Ceftriaxone Ceftriaxone S F Ciprofloxacin Ciprofloxacin S F Gentamicin Gentamicin S F Levofloxacin Levofloxacin S F Meropenem Meropenem S F Tetracycline Tetracycline S F Ticarcillin/Ca Ticarcillin/Ca S F Tobramycin Tobramycin S F Trimethoprim/Sulfameth oxazole Trimethoprim/Sulfameth oxazole R F Organism: 2.2 Antibiotic Interpretation DANILO Status Ciprofloxacin Ciprofloxacin S F Gentamicin Gentamicin S F Levofloxacin Levofloxacin S F Moxifloxacin Moxifloxacin S F Nitrofurantoin Nitrofurantoin S F Oxacillin Oxacillin S F Rifampin Rifampin S F Tetracycline Tetracycline S F Trimethoprim/Sulfameth oxazole Trimethoprim/Sulfameth oxazole S F Vancomycin Vancomycin S F Urine Culture Result 1 See Below For Report Urine Culture Result 1 Acinetobacter lwoffii O:ACILWO Isolated O:CNSS Isolated Organism: 1.1 Antibiotic Interpretation DANILO Status Amikacin Amikacin S F Ampicillin/Sulbactam Ampicillin/Sulbactam S F Cefepime Cefepime R F Cefotaxime Cefotaxime R F Ceftazidime Ceftazidime R F Ceftriaxone Ceftriaxone S F Ciprofloxacin Ciprofloxacin S F Gentamicin Gentamicin S F Levofloxacin Levofloxacin S F Meropenem Meropenem S F Tetracycline Tetracycline S F Ticarcillin/Ca Ticarcillin/Ca S F Tobramycin Tobramycin S F Trimethoprim/Sulfameth oxazole Trimethoprim/Sulfameth oxazole R F Organism: 1.2 Antibiotic Interpretation DANILO Status Ciprofloxacin Ciprofloxacin S F Gentamicin Gentamicin S F Levofloxacin Levofloxacin S F Moxifloxacin Moxifloxacin S F Nitrofurantoin Nitrofurantoin S F Oxacillin Oxacillin S F Rifampin Rifampin S F Tetracycline Tetracycline S F Trimethoprim/Sulfameth oxazole Trimethoprim/Sulfameth oxazole S F Vancomycin Vancomycin S F Organism: 2.1 Antibiotic Interpretation DANILO Status Amikacin Amikacin S F Ampicillin/Sulbactam Ampicillin/Sulbactam S F Cefepime Cefepime R F Cefotaxime Cefotaxime R F Ceftazidime Ceftazidime R F Ceftriaxone Ceftriaxone S F Ciprofloxacin Ciprofloxacin S F Gentamicin Gentamicin S F Levofloxacin Levofloxacin S F Meropenem Meropenem S F Tetracycline Tetracycline S F Ticarcillin/Ca Ticarcillin/Ca S F Tobramycin Tobramycin S F Trimethoprim/Sulfameth oxazole Trimethoprim/Sulfameth oxazole R F Organism: 2.2 Antibiotic Interpretation DANILO Status Ciprofloxacin Ciprofloxacin S F Gentamicin Gentamicin S F Levofloxacin Levofloxacin S F Moxifloxacin Moxifloxacin S F Nitrofurantoin Nitrofurantoin S F Oxacillin Oxacillin S F Rifampin Rifampin S F Tetracycline Tetracycline S F Trimethoprim/Sulfameth oxazole Trimethoprim/Sulfameth oxazole S F Vancomycin Vancomycin S F Urine Culture Result 1 See Below For Report Urine Culture Result 1 Acinetobacter lwoffii O:ACILWO Isolated O:CNSS Isolated Organism: 1.1 Antibiotic Interpretation DANILO Status Amikacin Amikacin S F Ampicillin/Sulbactam Ampicillin/Sulbactam S F Cefepime Cefepime R F Cefotaxime Cefotaxime R F Ceftazidime Ceftazidime R F Ceftriaxone Ceftriaxone S F Ciprofloxacin Ciprofloxacin S F Gentamicin Gentamicin S F Levofloxacin Levofloxacin S F Meropenem Meropenem S F Tetracycline Tetracycline S F Ticarcillin/Ca Ticarcillin/Ca S F Tobramycin Tobramycin S F Trimethoprim/Sulfameth oxazole Trimethoprim/Sulfameth oxazole R F Organism: 1.2 Antibiotic Interpretation DANILO Status Ciprofloxacin Ciprofloxacin S F Gentamicin Gentamicin S F Levofloxacin Levofloxacin S F Moxifloxacin Moxifloxacin S F Nitrofurantoin Nitrofurantoin S F Oxacillin Oxacillin S F Rifampin Rifampin S F Tetracycline Tetracycline S F Trimethoprim/Sulfameth oxazole Trimethoprim/Sulfameth oxazole S F Vancomycin Vancomycin S F Organism: 2.1 Antibiotic Interpretation DANILO Status Amikacin Amikacin S F Ampicillin/Sulbactam Ampicillin/Sulbactam S F Cefepime Cefepime R F Cefotaxime Cefotaxime R F Ceftazidime Ceftazidime R F Ceftriaxone Ceftriaxone S F Ciprofloxacin Ciprofloxacin S F Gentamicin Gentamicin S F Levofloxacin Levofloxacin S F Meropenem Meropenem S F Tetracycline Tetracycline S F Ticarcillin/Ca Ticarcillin/Ca S F Tobramycin Tobramycin S F Trimethoprim/Sulfameth oxazole Trimethoprim/Sulfameth oxazole R F Organism: 2.2 Antibiotic Interpretation DANILO Status Ciprofloxacin Ciprofloxacin S F Gentamicin Gentamicin S F Levofloxacin Levofloxacin S F Moxifloxacin Moxifloxacin S F Nitrofurantoin Nitrofurantoin S F Oxacillin Oxacillin S F Rifampin Rifampin S F Tetracycline Tetracycline S F Trimethoprim/Sulfameth oxazole Trimethoprim/Sulfameth oxazole S F Vancomycin Vancomycin S F Urine Culture Result 1 See Below For Report Urine Culture Result 1 Acinetobacter lwoffii O:ACILWO Isolated O:CNSS Isolated Organism: 1.1 Antibiotic Interpretation DANILO Status Amikacin Amikacin S F Ampicillin/Sulbactam Ampicillin/Sulbactam S F Cefepime Cefepime R F Cefotaxime Cefotaxime R F Ceftazidime Ceftazidime R F Ceftriaxone Ceftriaxone S F Ciprofloxacin Ciprofloxacin S F Gentamicin Gentamicin S F Levofloxacin Levofloxacin S F Meropenem Meropenem S F Tetracycline Tetracycline S F Ticarcillin/Ca Ticarcillin/Ca S F Tobramycin Tobramycin S F Trimethoprim/Sulfameth oxazole Trimethoprim/Sulfameth oxazole R F Organism: 1.2 Antibiotic Interpretation DANILO Status Ciprofloxacin Ciprofloxacin S F Gentamicin Gentamicin S F Levofloxacin Levofloxacin S F Moxifloxacin Moxifloxacin S F Nitrofurantoin Nitrofurantoin S F Oxacillin Oxacillin S F Rifampin Rifampin S F Tetracycline Tetracycline S F Trimethoprim/Sulfameth oxazole Trimethoprim/Sulfameth oxazole S F Vancomycin Vancomycin S F Organism: 2.1 Antibiotic Interpretation DANILO Status Amikacin Amikacin S F Ampicillin/Sulbactam Ampicillin/Sulbactam S F Cefepime Cefepime R F Cefotaxime Cefotaxime R F Ceftazidime Ceftazidime R F Ceftriaxone Ceftriaxone S F Ciprofloxacin Ciprofloxacin S F Gentamicin Gentamicin S F Levofloxacin Levofloxacin S F Meropenem Meropenem S F Tetracycline Tetracycline S F Ticarcillin/Ca Ticarcillin/Ca S F Tobramycin Tobramycin S F Trimethoprim/Sulfameth oxazole Trimethoprim/Sulfameth oxazole R F Organism: 2.2 Antibiotic Interpretation DANILO Status Ciprofloxacin Ciprofloxacin S F Gentamicin Gentamicin S F Levofloxacin Levofloxacin S F Moxifloxacin Moxifloxacin S F Nitrofurantoin Nitrofurantoin S F Oxacillin Oxacillin S F Rifampin Rifampin S F Tetracycline Tetracycline S F Trimethoprim/Sulfameth oxazole Trimethoprim/Sulfameth oxazole S F Vancomycin Vancomycin S F Urine Culture Result 1 See Below For Report Urine Culture Result 1 Acinetobacter lwoffii O:ACILWO Isolated O:CNSS Isolated Organism: 1.1 Antibiotic Interpretation DANILO Status Amikacin Amikacin S F Ampicillin/Sulbactam Ampicillin/Sulbactam S F Cefepime Cefepime R F Cefotaxime Cefotaxime R F Ceftazidime Ceftazidime R F Ceftriaxone Ceftriaxone S F Ciprofloxacin Ciprofloxacin S F Gentamicin Gentamicin S F Levofloxacin Levofloxacin S F Meropenem Meropenem S F Tetracycline Tetracycline S F Ticarcillin/Ca Ticarcillin/Ca S F Tobramycin Tobramycin S F Trimethoprim/Sulfameth oxazole Trimethoprim/Sulfameth oxazole R F Organism: 1.2 Antibiotic Interpretation DANILO Status Ciprofloxacin Ciprofloxacin S F Gentamicin Gentamicin S F Levofloxacin Levofloxacin S F Moxifloxacin Moxifloxacin S F Nitrofurantoin Nitrofurantoin S F Oxacillin Oxacillin S F Rifampin Rifampin S F Tetracycline Tetracycline S F Trimethoprim/Sulfameth oxazole Trimethoprim/Sulfameth oxazole S F Vancomycin Vancomycin S F Organism: 2.1 Antibiotic Interpretation DANILO Status Amikacin Amikacin S F Ampicillin/Sulbactam Ampicillin/Sulbactam S F Cefepime Cefepime R F Cefotaxime Cefotaxime R F Ceftazidime Ceftazidime R F Ceftriaxone Ceftriaxone S F Ciprofloxacin Ciprofloxacin S F Gentamicin Gentamicin S F Levofloxacin Levofloxacin S F Meropenem Meropenem S F Tetracycline Tetracycline S F Ticarcillin/Ca Ticarcillin/Ca S F Tobramycin Tobramycin S F Trimethoprim/Sulfameth oxazole Trimethoprim/Sulfameth oxazole R F Organism: 2.2 Antibiotic Interpretation DANILO Status Ciprofloxacin Ciprofloxacin S F Gentamicin Gentamicin S F Levofloxacin Levofloxacin S F Moxifloxacin Moxifloxacin S F Nitrofurantoin Nitrofurantoin S F Oxacillin Oxacillin S F Rifampin Rifampin S F Tetracycline Tetracycline S F Trimethoprim/Sulfameth oxazole Trimethoprim/Sulfameth oxazole S F Vancomycin Vancomycin S F Urine Culture Result 1 See Below For Report Urine Culture Result 1 Acinetobacter lwoffii O:ACILWO Isolated O:CNSS Isolated Organism: 1.1 Antibiotic Interpretation DANILO Status Amikacin Amikacin S F Ampicillin/Sulbactam Ampicillin/Sulbactam S F Cefepime Cefepime R F Cefotaxime Cefotaxime R F Ceftazidime Ceftazidime R F Ceftriaxone Ceftriaxone S F Ciprofloxacin Ciprofloxacin S F Gentamicin Gentamicin S F Levofloxacin Levofloxacin S F Meropenem Meropenem S F Tetracycline Tetracycline S F Ticarcillin/Ca Ticarcillin/Ca S F Tobramycin Tobramycin S F Trimethoprim/Sulfameth oxazole Trimethoprim/Sulfameth oxazole R F Organism: 1.2 Antibiotic Interpretation DANILO Status Ciprofloxacin Ciprofloxacin S F Gentamicin Gentamicin S F Levofloxacin Levofloxacin S F Moxifloxacin Moxifloxacin S F Nitrofurantoin Nitrofurantoin S F Oxacillin Oxacillin S F Rifampin Rifampin S F Tetracycline Tetracycline S F Trimethoprim/Sulfameth oxazole Trimethoprim/Sulfameth oxazole S F Vancomycin Vancomycin S F Organism: 2.1 Antibiotic Interpretation DANILO Status Amikacin Amikacin S F Ampicillin/Sulbactam Ampicillin/Sulbactam S F Cefepime Cefepime R F Cefotaxime Cefotaxime R F Ceftazidime Ceftazidime R F Ceftriaxone Ceftriaxone S F Ciprofloxacin Ciprofloxacin S F Gentamicin Gentamicin S F Levofloxacin Levofloxacin S F Meropenem Meropenem S F Tetracycline Tetracycline S F Ticarcillin/Ca Ticarcillin/Ca S F Tobramycin Tobramycin S F Trimethoprim/Sulfameth oxazole Trimethoprim/Sulfameth oxazole R F Organism: 2.2 Antibiotic Interpretation DANILO Status Ciprofloxacin Ciprofloxacin S F Gentamicin Gentamicin S F Levofloxacin Levofloxacin S F Moxifloxacin Moxifloxacin S F Nitrofurantoin Nitrofurantoin S F Oxacillin Oxacillin S F Rifampin Rifampin S F Tetracycline Tetracycline S F Trimethoprim/Sulfameth oxazole Trimethoprim/Sulfameth oxazole S F Vancomycin Vancomycin S F Urine Culture Result 1 See Below For Report Urine Culture Result 1 Acinetobacter lwoffii O:ACILWO Isolated O:CNSS Isolated Organism: 1.1 Antibiotic Interpretation DANILO Status Amikacin Amikacin S F Ampicillin/Sulbactam Ampicillin/Sulbactam S F Cefepime Cefepime R F Cefotaxime Cefotaxime R F Ceftazidime Ceftazidime R F Ceftriaxone Ceftriaxone S F Ciprofloxacin Ciprofloxacin S F Gentamicin Gentamicin S F Levofloxacin Levofloxacin S F Meropenem Meropenem S F Tetracycline Tetracycline S F Ticarcillin/Ca Ticarcillin/Ca S F Tobramycin Tobramycin S F Trimethoprim/Sulfameth oxazole Trimethoprim/Sulfameth oxazole R F Organism: 1.2 Antibiotic Interpretation DANILO Status Ciprofloxacin Ciprofloxacin S F Gentamicin Gentamicin S F Levofloxacin Levofloxacin S F Moxifloxacin Moxifloxacin S F Nitrofurantoin Nitrofurantoin S F Oxacillin Oxacillin S F Rifampin Rifampin S F Tetracycline Tetracycline S F Trimethoprim/Sulfameth oxazole Trimethoprim/Sulfameth oxazole S F Vancomycin Vancomycin S F Organism: 2.1 Antibiotic Interpretation DANILO Status Amikacin Amikacin S F Ampicillin/Sulbactam Ampicillin/Sulbactam S F Cefepime Cefepime R F Cefotaxime Cefotaxime R F Ceftazidime Ceftazidime R F Ceftriaxone Ceftriaxone S F Ciprofloxacin Ciprofloxacin S F Gentamicin Gentamicin S F Levofloxacin Levofloxacin S F Meropenem Meropenem S F Tetracycline Tetracycline S F Ticarcillin/Ca Ticarcillin/Ca S F Tobramycin Tobramycin S F Trimethoprim/Sulfameth oxazole Trimethoprim/Sulfameth oxazole R F Organism: 2.2 Antibiotic Interpretation DANILO Status Ciprofloxacin Ciprofloxacin S F Gentamicin Gentamicin S F Levofloxacin Levofloxacin S F Moxifloxacin Moxifloxacin S F Nitrofurantoin Nitrofurantoin S F Oxacillin Oxacillin S F Rifampin Rifampin S F Tetracycline Tetracycline S F Trimethoprim/Sulfameth oxazole Trimethoprim/Sulfameth oxazole S F Vancomycin Vancomycin S F Urine Culture Result 1 See Below For Report Urine Culture Result 1 Acinetobacter lwoffii O:ACILWO Isolated O:CNSS Isolated Organism: 1.1 Antibiotic Interpretation DANILO Status Amikacin Amikacin S F Ampicillin/Sulbactam Ampicillin/Sulbactam S F Cefepime Cefepime R F Cefotaxime Cefotaxime R F Ceftazidime Ceftazidime R F Ceftriaxone Ceftriaxone S F Ciprofloxacin Ciprofloxacin S F Gentamicin Gentamicin S F Levofloxacin Levofloxacin S F Meropenem Meropenem S F Tetracycline Tetracycline S F Ticarcillin/Ca Ticarcillin/Ca S F Tobramycin Tobramycin S F Trimethoprim/Sulfameth oxazole Trimethoprim/Sulfameth oxazole R F Organism: 1.2 Antibiotic Interpretation DANILO Status Ciprofloxacin Ciprofloxacin S F Gentamicin Gentamicin S F Levofloxacin Levofloxacin S F Moxifloxacin Moxifloxacin S F Nitrofurantoin Nitrofurantoin S F Oxacillin Oxacillin S F Rifampin Rifampin S F Tetracycline Tetracycline S F Trimethoprim/Sulfameth oxazole Trimethoprim/Sulfameth oxazole S F Vancomycin Vancomycin S F Organism: 2.1 Antibiotic Interpretation DANILO Status Amikacin Amikacin S F Ampicillin/Sulbactam Ampicillin/Sulbactam S F Cefepime Cefepime R F Cefotaxime Cefotaxime R F Ceftazidime Ceftazidime R F Ceftriaxone Ceftriaxone S F Ciprofloxacin Ciprofloxacin S F Gentamicin Gentamicin S F Levofloxacin Levofloxacin S F Meropenem Meropenem S F Tetracycline Tetracycline S F Ticarcillin/Ca Ticarcillin/Ca S F Tobramycin Tobramycin S F Trimethoprim/Sulfameth oxazole Trimethoprim/Sulfameth oxazole R F Organism: 2.2 Antibiotic Interpretation DANILO Status Ciprofloxacin Ciprofloxacin S F Gentamicin Gentamicin S F Levofloxacin Levofloxacin S F Moxifloxacin Moxifloxacin S F Nitrofurantoin Nitrofurantoin S F Oxacillin Oxacillin S F Rifampin Rifampin S F Tetracycline Tetracycline S F Trimethoprim/Sulfameth oxazole Trimethoprim/Sulfameth oxazole S F Vancomycin Vancomycin S F Urine Culture Result 1 See Below For Report Urine Culture Result 1 Acinetobacter lwoffii O:ACILWO Isolated O:CNSS Isolated Organism: 1.1 Antibiotic Interpretation DANILO Status Amikacin Amikacin S F Ampicillin/Sulbactam Ampicillin/Sulbactam S F Cefepime Cefepime R F Cefotaxime Cefotaxime R F Ceftazidime Ceftazidime R F Ceftriaxone Ceftriaxone S F Ciprofloxacin Ciprofloxacin S F Gentamicin Gentamicin S F Levofloxacin Levofloxacin S F Meropenem Meropenem S F Tetracycline Tetracycline S F Ticarcillin/Ca Ticarcillin/Ca S F Tobramycin Tobramycin S F Trimethoprim/Sulfameth oxazole Trimethoprim/Sulfameth oxazole R F Organism: 1.2 Antibiotic Interpretation DANILO Status Ciprofloxacin Ciprofloxacin S F Gentamicin Gentamicin S F Levofloxacin Levofloxacin S F Moxifloxacin Moxifloxacin S F Nitrofurantoin Nitrofurantoin S F Oxacillin Oxacillin S F Rifampin Rifampin S F Tetracycline Tetracycline S F Trimethoprim/Sulfameth oxazole Trimethoprim/Sulfameth oxazole S F Vancomycin Vancomycin S F Organism: 2.1 Antibiotic Interpretation DANILO Status Amikacin Amikacin S F Ampicillin/Sulbactam Ampicillin/Sulbactam S F Cefepime Cefepime R F Cefotaxime Cefotaxime R F Ceftazidime Ceftazidime R F Ceftriaxone Ceftriaxone S F Ciprofloxacin Ciprofloxacin S F Gentamicin Gentamicin S F Levofloxacin Levofloxacin S F Meropenem Meropenem S F Tetracycline Tetracycline S F Ticarcillin/Ca Ticarcillin/Ca S F Tobramycin Tobramycin S F Trimethoprim/Sulfameth oxazole Trimethoprim/Sulfameth oxazole R F Organism: 2.2 Antibiotic Interpretation DANILO Status Ciprofloxacin Ciprofloxacin S F Gentamicin Gentamicin S F Levofloxacin Levofloxacin S F Moxifloxacin Moxifloxacin S F Nitrofurantoin Nitrofurantoin S F Oxacillin Oxacillin S F Rifampin Rifampin S F Tetracycline Tetracycline S F Trimethoprim/Sulfameth oxazole Trimethoprim/Sulfameth oxazole S F Vancomycin Vancomycin S F Urine Culture Result 1 See Below For Report Urine Culture Result 1 Acinetobacter lwoffii O:ACILWO Isolated O:CNSS Isolated Organism: 1.1 Antibiotic Interpretation DANILO Status Amikacin Amikacin S F Ampicillin/Sulbactam Ampicillin/Sulbactam S F Cefepime Cefepime R F Cefotaxime Cefotaxime R F Ceftazidime Ceftazidime R F Ceftriaxone Ceftriaxone S F Ciprofloxacin Ciprofloxacin S F Gentamicin Gentamicin S F Levofloxacin Levofloxacin S F Meropenem Meropenem S F Tetracycline Tetracycline S F Ticarcillin/Ca Ticarcillin/Ca S F Tobramycin Tobramycin S F Trimethoprim/Sulfameth oxazole Trimethoprim/Sulfameth oxazole R F Organism: 1.2 Antibiotic Interpretation DANILO Status Ciprofloxacin Ciprofloxacin S F Gentamicin Gentamicin S F Levofloxacin Levofloxacin S F Moxifloxacin Moxifloxacin S F Nitrofurantoin Nitrofurantoin S F Oxacillin Oxacillin S F Rifampin Rifampin S F Tetracycline Tetracycline S F Trimethoprim/Sulfameth oxazole Trimethoprim/Sulfameth oxazole S F Vancomycin Vancomycin S F Organism: 2.1 Antibiotic Interpretation DANILO Status Amikacin Amikacin S F Ampicillin/Sulbactam Ampicillin/Sulbactam S F Cefepime Cefepime R F Cefotaxime Cefotaxime R F Ceftazidime Ceftazidime R F Ceftriaxone Ceftriaxone S F Ciprofloxacin Ciprofloxacin S F Gentamicin Gentamicin S F Levofloxacin Levofloxacin S F Meropenem Meropenem S F Tetracycline Tetracycline S F Ticarcillin/Ca Ticarcillin/Ca S F Tobramycin Tobramycin S F Trimethoprim/Sulfameth oxazole Trimethoprim/Sulfameth oxazole R F Organism: 2.2 Antibiotic Interpretation DANILO Status Ciprofloxacin Ciprofloxacin S F Gentamicin Gentamicin S F Levofloxacin Levofloxacin S F Moxifloxacin Moxifloxacin S F Nitrofurantoin Nitrofurantoin S F Oxacillin Oxacillin S F Rifampin Rifampin S F Tetracycline Tetracycline S F Trimethoprim/Sulfameth oxazole Trimethoprim/Sulfameth oxazole S F Vancomycin Vancomycin S F Urine Culture Result 1 See Below For Report Urine Culture Result 1 Acinetobacter lwoffii O:ACILWO Isolated O:CNSS Isolated Organism: 1.1 Antibiotic Interpretation DANILO Status Amikacin Amikacin S F Ampicillin/Sulbactam Ampicillin/Sulbactam S F Cefepime Cefepime R F Cefotaxime Cefotaxime R F Ceftazidime Ceftazidime R F Ceftriaxone Ceftriaxone S F Ciprofloxacin Ciprofloxacin S F Gentamicin Gentamicin S F Levofloxacin Levofloxacin S F Meropenem Meropenem S F Tetracycline Tetracycline S F Ticarcillin/Ca Ticarcillin/Ca S F Tobramycin Tobramycin S F Trimethoprim/Sulfameth oxazole Trimethoprim/Sulfameth oxazole R F Organism: 1.2 Antibiotic Interpretation DANILO Status Ciprofloxacin Ciprofloxacin S F Gentamicin Gentamicin S F Levofloxacin Levofloxacin S F Moxifloxacin Moxifloxacin S F Nitrofurantoin Nitrofurantoin S F Oxacillin Oxacillin S F Rifampin Rifampin S F Tetracycline Tetracycline S F Trimethoprim/Sulfameth oxazole Trimethoprim/Sulfameth oxazole S F Vancomycin Vancomycin S F Organism: 2.1 Antibiotic Interpretation DANILO Status Amikacin Amikacin S F Ampicillin/Sulbactam Ampicillin/Sulbactam S F Cefepime Cefepime R F Cefotaxime Cefotaxime R F Ceftazidime Ceftazidime R F Ceftriaxone Ceftriaxone S F Ciprofloxacin Ciprofloxacin S F Gentamicin Gentamicin S F Levofloxacin Levofloxacin S F Meropenem Meropenem S F Tetracycline Tetracycline S F Ticarcillin/Ca Ticarcillin/Ca S F Tobramycin Tobramycin S F Trimethoprim/Sulfameth oxazole Trimethoprim/Sulfameth oxazole R F Organism: 2.2 Antibiotic Interpretation DANILO Status Ciprofloxacin Ciprofloxacin S F Gentamicin Gentamicin S F Levofloxacin Levofloxacin S F Moxifloxacin Moxifloxacin S F Nitrofurantoin Nitrofurantoin S F Oxacillin Oxacillin S F Rifampin Rifampin S F Tetracycline Tetracycline S F Trimethoprim/Sulfameth oxazole Trimethoprim/Sulfameth oxazole S F Vancomycin Vancomycin S F Urine Culture Result 1 See Below For Report Urine Culture Result 1 Acinetobacter lwoffii O:ACILWO Isolated O:CNSS Isolated Organism: 1.1 Antibiotic Interpretation DANILO Status Amikacin Amikacin S F Ampicillin/Sulbactam Ampicillin/Sulbactam S F Cefepime Cefepime R F Cefotaxime Cefotaxime R F Ceftazidime Ceftazidime R F Ceftriaxone Ceftriaxone S F Ciprofloxacin Ciprofloxacin S F Gentamicin Gentamicin S F Levofloxacin Levofloxacin S F Meropenem Meropenem S F Tetracycline Tetracycline S F Ticarcillin/Ca Ticarcillin/Ca S F Tobramycin Tobramycin S F Trimethoprim/Sulfameth oxazole Trimethoprim/Sulfameth oxazole R F Organism: 1.2 Antibiotic Interpretation DANILO Status Ciprofloxacin Ciprofloxacin S F Gentamicin Gentamicin S F Levofloxacin Levofloxacin S F Moxifloxacin Moxifloxacin S F Nitrofurantoin Nitrofurantoin S F Oxacillin Oxacillin S F Rifampin Rifampin S F Tetracycline Tetracycline S F Trimethoprim/Sulfameth oxazole Trimethoprim/Sulfameth oxazole S F Vancomycin Vancomycin S F Organism: 2.1 Antibiotic Interpretation DANILO Status Amikacin Amikacin S F Ampicillin/Sulbactam Ampicillin/Sulbactam S F Cefepime Cefepime R F Cefotaxime Cefotaxime R F Ceftazidime Ceftazidime R F Ceftriaxone Ceftriaxone S F Ciprofloxacin Ciprofloxacin S F Gentamicin Gentamicin S F Levofloxacin Levofloxacin S F Meropenem Meropenem S F Tetracycline Tetracycline S F Ticarcillin/Ca Ticarcillin/Ca S F Tobramycin Tobramycin S F Trimethoprim/Sulfameth oxazole Trimethoprim/Sulfameth oxazole R F Organism: 2.2 Antibiotic Interpretation DANILO Status Ciprofloxacin Ciprofloxacin S F Gentamicin Gentamicin S F Levofloxacin Levofloxacin S F Moxifloxacin Moxifloxacin S F Nitrofurantoin Nitrofurantoin S F Oxacillin Oxacillin S F Rifampin Rifampin S F Tetracycline Tetracycline S F Trimethoprim/Sulfameth oxazole Trimethoprim/Sulfameth oxazole S F Vancomycin Vancomycin S F Urine Culture Result 1 See Below For Report Urine Culture Result 1 Acinetobacter lwoffii O:ACILWO Isolated O:CNSS Isolated Organism: 1.1 Antibiotic Interpretation DANILO Status Amikacin Amikacin S F Ampicillin/Sulbactam Ampicillin/Sulbactam S F Cefepime Cefepime R F Cefotaxime Cefotaxime R F Ceftazidime Ceftazidime R F Ceftriaxone Ceftriaxone S F Ciprofloxacin Ciprofloxacin S F Gentamicin Gentamicin S F Levofloxacin Levofloxacin S F Meropenem Meropenem S F Tetracycline Tetracycline S F Ticarcillin/Ca Ticarcillin/Ca S F Tobramycin Tobramycin S F Trimethoprim/Sulfameth oxazole Trimethoprim/Sulfameth oxazole R F Organism: 1.2 Antibiotic Interpretation DANILO Status Ciprofloxacin Ciprofloxacin S F Gentamicin Gentamicin S F Levofloxacin Levofloxacin S F Moxifloxacin Moxifloxacin S F Nitrofurantoin Nitrofurantoin S F Oxacillin Oxacillin S F Rifampin Rifampin S F Tetracycline Tetracycline S F Trimethoprim/Sulfameth oxazole Trimethoprim/Sulfameth oxazole S F Vancomycin Vancomycin S F Organism: 2.1 Antibiotic Interpretation DANILO Status Amikacin Amikacin S F Ampicillin/Sulbactam Ampicillin/Sulbactam S F Cefepime Cefepime R F Cefotaxime Cefotaxime R F Ceftazidime Ceftazidime R F Ceftriaxone Ceftriaxone S F Ciprofloxacin Ciprofloxacin S F Gentamicin Gentamicin S F Levofloxacin Levofloxacin S F Meropenem Meropenem S F Tetracycline Tetracycline S F Ticarcillin/Ca Ticarcillin/Ca S F Tobramycin Tobramycin S F Trimethoprim/Sulfameth oxazole Trimethoprim/Sulfameth oxazole R F Organism: 2.2 Antibiotic Interpretation DANILO Status Ciprofloxacin Ciprofloxacin S F Gentamicin Gentamicin S F Levofloxacin Levofloxacin S F Moxifloxacin Moxifloxacin S F Nitrofurantoin Nitrofurantoin S F Oxacillin Oxacillin S F Rifampin Rifampin S F Tetracycline Tetracycline S F Trimethoprim/Sulfameth oxazole Trimethoprim/Sulfameth oxazole S F Vancomycin Vancomycin S F Urine Culture Result 1 See Below For Report Urine Culture Result 1 Acinetobacter lwoffii O:ACILWO Isolated O:CNSS Isolated Organism: 1.1 Antibiotic Interpretation DANILO Status Amikacin Amikacin S F Ampicillin/Sulbactam Ampicillin/Sulbactam S F Cefepime Cefepime R F Cefotaxime Cefotaxime R F Ceftazidime Ceftazidime R F Ceftriaxone Ceftriaxone S F Ciprofloxacin Ciprofloxacin S F Gentamicin Gentamicin S F Levofloxacin Levofloxacin S F Meropenem Meropenem S F Tetracycline Tetracycline S F Ticarcillin/Ca Ticarcillin/Ca S F Tobramycin Tobramycin S F Trimethoprim/Sulfameth oxazole Trimethoprim/Sulfameth oxazole R F Organism: 1.2 Antibiotic Interpretation DANILO Status Ciprofloxacin Ciprofloxacin S F Gentamicin Gentamicin S F Levofloxacin Levofloxacin S F Moxifloxacin Moxifloxacin S F Nitrofurantoin Nitrofurantoin S F Oxacillin Oxacillin S F Rifampin Rifampin S F Tetracycline Tetracycline S F Trimethoprim/Sulfameth oxazole Trimethoprim/Sulfameth oxazole S F Vancomycin Vancomycin S F Organism: 2.1 Antibiotic Interpretation DANILO Status Amikacin Amikacin S F Ampicillin/Sulbactam Ampicillin/Sulbactam S F Cefepime Cefepime R F Cefotaxime Cefotaxime R F Ceftazidime Ceftazidime R F Ceftriaxone Ceftriaxone S F Ciprofloxacin Ciprofloxacin S F Gentamicin Gentamicin S F Levofloxacin Levofloxacin S F Meropenem Meropenem S F Tetracycline Tetracycline S F Ticarcillin/Ca Ticarcillin/Ca S F Tobramycin Tobramycin S F Trimethoprim/Sulfameth oxazole Trimethoprim/Sulfameth oxazole R F Organism: 2.2 Antibiotic Interpretation DANILO Status Ciprofloxacin Ciprofloxacin S F Gentamicin Gentamicin S F Levofloxacin Levofloxacin S F Moxifloxacin Moxifloxacin S F Nitrofurantoin Nitrofurantoin S F Oxacillin Oxacillin S F Rifampin Rifampin S F Tetracycline Tetracycline S F Trimethoprim/Sulfameth oxazole Trimethoprim/Sulfameth oxazole S F Vancomycin Vancomycin S F Urine Culture Result 1 See Below For Report Urine Culture Result 1 Acinetobacter lwoffii O:ACILWO Isolated O:CNSS Isolated Organism: 1.1 Antibiotic Interpretation DANILO Status Amikacin Amikacin S F Ampicillin/Sulbactam Ampicillin/Sulbactam S F Cefepime Cefepime R F Cefotaxime Cefotaxime R F Ceftazidime Ceftazidime R F Ceftriaxone Ceftriaxone S F Ciprofloxacin Ciprofloxacin S F Gentamicin Gentamicin S F Levofloxacin Levofloxacin S F Meropenem Meropenem S F Tetracycline Tetracycline S F Ticarcillin/Ca Ticarcillin/Ca S F Tobramycin Tobramycin S F Trimethoprim/Sulfameth oxazole Trimethoprim/Sulfameth oxazole R F Organism: 1.2 Antibiotic Interpretation DANILO Status Ciprofloxacin Ciprofloxacin S F Gentamicin Gentamicin S F Levofloxacin Levofloxacin S F Moxifloxacin Moxifloxacin S F Nitrofurantoin Nitrofurantoin S F Oxacillin Oxacillin S F Rifampin Rifampin S F Tetracycline Tetracycline S F Trimethoprim/Sulfameth oxazole Trimethoprim/Sulfameth oxazole S F Vancomycin Vancomycin S F Organism: 2.1 Antibiotic Interpretation DANILO Status Amikacin Amikacin S F Ampicillin/Sulbactam Ampicillin/Sulbactam S F Cefepime Cefepime R F Cefotaxime Cefotaxime R F Ceftazidime Ceftazidime R F Ceftriaxone Ceftriaxone S F Ciprofloxacin Ciprofloxacin S F Gentamicin Gentamicin S F Levofloxacin Levofloxacin S F Meropenem Meropenem S F Tetracycline Tetracycline S F Ticarcillin/Ca Ticarcillin/Ca S F Tobramycin Tobramycin S F Trimethoprim/Sulfameth oxazole Trimethoprim/Sulfameth oxazole R F Organism: 2.2 Antibiotic Interpretation DANILO Status Ciprofloxacin Ciprofloxacin S F Gentamicin Gentamicin S F Levofloxacin Levofloxacin S F Moxifloxacin Moxifloxacin S F Nitrofurantoin Nitrofurantoin S F Oxacillin Oxacillin S F Rifampin Rifampin S F Tetracycline Tetracycline S F Trimethoprim/Sulfameth oxazole Trimethoprim/Sulfameth oxazole S F Vancomycin Vancomycin S F Urine Culture Result 1 See Below For Report Urine Culture Result 1 Acinetobacter lwoffii O:ACILWO Isolated O:CNSS Isolated Organism: 1.1 Antibiotic Interpretation DANILO Status Amikacin Amikacin S F Ampicillin/Sulbactam Ampicillin/Sulbactam S F Cefepime Cefepime R F Cefotaxime Cefotaxime R F Ceftazidime Ceftazidime R F Ceftriaxone Ceftriaxone S F Ciprofloxacin Ciprofloxacin S F Gentamicin Gentamicin S F Levofloxacin Levofloxacin S F Meropenem Meropenem S F Tetracycline Tetracycline S F Ticarcillin/Ca Ticarcillin/Ca S F Tobramycin Tobramycin S F Trimethoprim/Sulfameth oxazole Trimethoprim/Sulfameth oxazole R F Organism: 1.2 Antibiotic Interpretation DANILO Status Ciprofloxacin Ciprofloxacin S F Gentamicin Gentamicin S F Levofloxacin Levofloxacin S F Moxifloxacin Moxifloxacin S F Nitrofurantoin Nitrofurantoin S F Oxacillin Oxacillin S F Rifampin Rifampin S F Tetracycline Tetracycline S F Trimethoprim/Sulfameth oxazole Trimethoprim/Sulfameth oxazole S F Vancomycin Vancomycin S F Organism: 2.1 Antibiotic Interpretation DANILO Status Amikacin Amikacin S F Ampicillin/Sulbactam Ampicillin/Sulbactam S F Cefepime Cefepime R F Cefotaxime Cefotaxime R F Ceftazidime Ceftazidime R F Ceftriaxone Ceftriaxone S F Ciprofloxacin Ciprofloxacin S F Gentamicin Gentamicin S F Levofloxacin Levofloxacin S F Meropenem Meropenem S F Tetracycline Tetracycline S F Ticarcillin/Ca Ticarcillin/Ca S F Tobramycin Tobramycin S F Trimethoprim/Sulfameth oxazole Trimethoprim/Sulfameth oxazole R F Organism: 2.2 Antibiotic Interpretation DANILO Status Ciprofloxacin Ciprofloxacin S F Gentamicin Gentamicin S F Levofloxacin Levofloxacin S F Moxifloxacin Moxifloxacin S F Nitrofurantoin Nitrofurantoin S F Oxacillin Oxacillin S F Rifampin Rifampin S F Tetracycline Tetracycline S F Trimethoprim/Sulfameth oxazole Trimethoprim/Sulfameth oxazole S F Vancomycin Vancomycin S F Performing Lab: see note LC - [facility] SEE REPORT - Ship Manager Id information not found for OBX-specific customer assistance representative legend Urine Culture, Routine Reviewed date:03/05/2024 02:20:26 PM Interpretation: Performing Lab: Notes/Report: [facility] , Urine Culture, Routine See Below For Report Urine Culture, Routine Urine Culture, Routine Growth observed. Further testing to rule out possible pathogen(s) Urine Culture, Routine Urine Culture, Routine is in progress. Urine Culture, Routine Urine Culture, Routine Urine Culture, Routine Urine Culture, Routine Growth observed. Further testing to rule out possible pathogen(s) Urine Culture, Routine Urine Culture, Routine is in progress. Urine Culture, Routine Urine Culture, Routine Urine Culture, Routine Urine Culture, Routine Growth observed. Further testing to rule out possible pathogen(s) Urine Culture, Routine Urine Culture, Routine is in progress. Urine Culture, Routine Urine Culture, Routine Performed at: - [facility] [place] Urine Culture, Routine Urine Culture, Routine [address] [place], [place] [id number] Urine Culture, Routine Urine Culture, Routine Supervisor Tumblers: Forest Santoyo PhD, Phone: [phone] Urine Culture, Routine Performing Lab: see note - [facility] SEE REPORT - Ship Manager Id information not found for OBX-specific customer assistance representative legend US OB growth Reviewed date:01/22/2024 08:35:44 AM Interpretation: Performing Lab: Notes/Report: Source Facility: [place] [address] Ultrasound Report Signed Patient: SANDY GODINEZ MR#: [id number] : 1995 Acct:[id number] Age/Sex: 28 / F ADM Date: 01/20/24 Loc: US Attending Dr: Jose Miguel Campuzano D.O. Ordering Physician: Jose Miguel Campuzano D.O. Date of Service: 01/20/24 Procedure(s): US OB growth Accession Number(s): [id number] cc: NOEIM VALDERRAMA ; Jose Miguel Campuzano D.O. [place] [address] Patient Name: SANDY GODINEZ MRN: [id number] date: 1995 Sex: F Assigned Patient Location: Current Patient Location: US Accession/Order Number: [id number] Exam Date: 01/20/2024 10:55 Report Date: 01/21/2024 08:10 At the request of: JOSE MIGUEL CAMPUZANO Procedure: US OB growth EXAMINATION: US OB growth HISTORY: Single vessel umbilical cord Q27.0 COMPARISON: Ultrasound OB growth 12/30/2023 FINDINGS: Heart Rate: 137 bpm Amniotic Fluid Volume: 13.5 cm; normal range Number: One Position: Cephalic BIOMETRY: BPD: 8.6 cm; 34 weeks 4 days; 32% HC: 31.5 cm; 35 weeks 2 days; 17% AC: 31.2 cm; 35 weeks 1 day; 49% FL: 6.6 cm; 34 weeks 0 days; 12% EFW: 2513 g; 30% FL/AC: 21.15 FL/BPD: 76.72 HC/AC: 1.01 GESTATIONAL AGE: Age by EDC: 35 weeks 3 days NOVA by EDC: 02/21/2024 Age by US: 34 weeks 5 days NOVA by US: 02/26/2024 US/US OB growth IMPRESSION: 1. Single live intrauterine with growth detailed above. 2. Known two-vessel umbilical cord. Electronically authenticated by: JOSUE KEBEDE Date: 01/21/2024 08:10 Dictated By: Josue Kebede M.D. Signed By: 01/21/24812 DD/ 9 TD/TT: Transcriber: [place] [address] Ultrasound Report Signed Patient: SHERON GODINEZ MR#: [id number] : 1995 Acct:[id number] Age/Sex: 28 / F ADM Date: 01/20/24 Loc: US Attending Dr: Jose Miguel Campuzano D.O. Ordering Physician: Jose Miguel Campuzano D.O. Date of Service: 01/20/24 Procedure(s): US OB growth Accession Number(s): [id number] cc: NOEMI VALDERRAMA ; Jose Miguel Campuzano D.O. [place] [address] Patient Name: SANDY GODINEZ MRN: [id number] date: 1995 Sex: F Assigned Patient Location: US Current Patient Location: US Accession/Order Numb er: [id number] Exam Date: 01/20/2024 10:55 Report Date: 01/21/2024 08:10 At the request of: JOSE MIGUEL CAMPUZANO Procedure: US OB growth EXAMINATION: US OB growth HISTORY: Single vess el umbilical cord Q27.0 COMPARISON: Ultrasou nd OB growth 12/30/2023 FINDINGS: Heart Rate: 13 7 bpm Amniotic Fluid Volum e: 13.5 cm; normal range Number: One Position: Cephalic BIOMETRY: BPD: 8.6 cm; 34 week s 4 days; 32% HC: 31.5 cm; 35 week s 2 days; 17% AC: 31.2 cm; 35 week s 1 day; 49% FL: 6.6 cm; 34 weeks 0 days; 12% EFW: 2513 g; 30% FL/AC: 21.15 FL/BPD: 76.72 HC/AC: 1.01 GESTATIONAL AGE: Age by EDC: 35 weeks 3 days NOVA by EDC: 02/21/2024 Age by US: 34 weeks 5 days NOVA by US: 02/26/2024 US/US OB growth IMPRESSION: 1. Single live intrauterine with growth detailed above. 2. Known two-vessel umbilical cord. Electronically authenticated by: JOSUE KEBEDE Date: 01/21/2024 08:10 Dictated By: Josue Kebede M.D. Signed By: 01/21/24812 DD/ 9 TD/TT: Transcriber: US OB BPP w non-stress Reviewed date:02/03/2024 02:59:53 PM Interpretation: Performing Lab: Notes/Report: Source Facility: [place] [address] Ultrasound Report Signed Patient: SANDY GODINEZ MR#: [id number] : 1995 Acct:[id number] Age/Sex: 28 / F ADM Date: 02/03/24 Loc: Attending Dr: Jose Miguel Campuzano D.O. Ordering Physician: Jose Miguel Campuzano D.O. Date of Service: 02/03/24 Procedure(s): US OB BPP w non-stress Accession Number(s): [id number] cc: NOEMI VALDERRAMA ; Jose Miguel Campuzano D.O. [facility] [place] [address] Patient Name: SANDY GODINEZ MRN: [id number] date: 1995 Sex: F Assigned Patient Location: Current Patient Location: Accession/Order Number: [id number] Exam Date: 02/03/2024 11:30 Report Date: 02/03/2024 13:18 At the request of: JOSE MIGUEL CAMPUZANO Procedure: US OB BPP w non-stress EXAMINATION: US OB BPP w non-stress HISTORY: Two vessel umbilical cord COMPARISON: No relevant comparison available. TECHNIQUE: Ultrasound biophysical profile was performed in the radiology department. non-reactive stress testing was performed by nursing staff in the birthing center. FINDINGS: BREATHING MOVEMENTS: 2 GROSS BODY MOVEMENTS: 2 TONE: 2 QUALITATIVE AMNIOTIC FLUID VOLUME: 2 PRESENTATION: Cephalic HEART RATE: 134 AMNIOTIC FLUID VOLUME: 14.0 cm GESTATIONAL AGE: Recent weeks 3 days US/US OB BPP w non-stress IMPRESSION: Total biophysical profile score: 8/8 Electronically authenticated by: KIRK OATES Date: 02/03/2024 13:18 Dictated By: Kirk Oates M.D. Signed By: 02/03/24 1320 DD/ 1318 TD/TT: Transcriber: [place] [address] Ultrasound Report Signed Patient: SHERON GODINEZ MR#: [id number] : 1995 Acct:[id number] Age/Sex: 28 / F ADM Date: 02/03/24 Loc: US Attending Dr: Jose Miguel Campuzano D.O. Ordering Physician: Jose Miguel Campuzano D.O. Date of Service: 02/03/24 Procedure(s): US OB BPP w non-stress Accession Number(s): [id number] cc: NOEMI VALDERRAMA ; Jose Miguel Campuzano D.O. [facility] [place] [id number] Patient Name: SANDY GODINEZ MRN: [id number] date: 1995 Sex: F Assigned Patient Location: US Current Patient Location: Accession/Order Numb er: [id number] Exam Date: 02/03/2024 11:30 Report Date: 02/03/2024 13:18 At the request of: JOSE MIGUEL CAMPUZANO Procedure: US OB fet al BPP w non-stress EXAMINATION: US OB BPP w non-stress HISTORY: Two vessel umbilical cord COMPARISON: No relev ant comparison available. TECHNIQUE: Ultrasoun d biophysical profile was performed in the radiology department. non-reactive stress testing was performed by nursing staff in the birthing center. FINDINGS: BREATHING MOVEMENTS: 2 GROSS BODY MOVEMENTS: 2 TONE: 2 QUALITATIVE AMNIOTIC FLUID VOLUME: 2 PRESENTATION: Cephalic HEART RATE: 134 AMNIOTIC FLUID VOLUM E: 14.0 cm GESTATIONAL AGE: Rec ent weeks 3 days US/US OB BPP w non-stress IMPRESSION: Total biophysical profile score: 8/8 Electronically authenticated by: KIRK OATES Date: 02/03/2024 13:18 Dictated By: Samm Oates M.D. Signed By: 02/03/24 1320 DD/ 1318 TD/TT: Transcriber: US OB cervical length Reviewed date:12/24/2023 01:00:30 PM Interpretation: Performing Lab: Notes/Report: Source Facility: [place] [address] Ultrasound Report Signed Patient: SANDY GODINEZ MR#: [id number] : 1995 Acct:[id number] Age/Sex: 28 / F ADM Date: 12/24/23 Loc: US Attending Dr: Jose Miguel Campuzano D.O. Ordering Physician: Jose Miguel Campuzano D.O. Date of Service: 12/24/23 Procedure(s): US OB cervical length Accession Number(s): [id number] cc: NOEMI VALDERRAMA ; Jose Miguel Campuzano D.O. [place] [address] Patient Name: SANDY GODINEZ MRN: [id number] date: 1995 Sex: F Assigned Patient Location: US Current Patient Location: US Accession/Order Number: [id number] Exam Date: 12/24/2023 12:00 Report Date: 12/24/2023 12:20 At the request of: JOSE MIGUEL CAMPUZANO Procedure: US OB cervical length EXAMINATION: US OB cervical length HISTORY: Pelvic Pain In COMPARISON: 12/05/2023 FINDINGS: position: Cephalic presentation, longitudinal lie Amniotic fluid volume: Subjectively normal Heart rate 155 beats minute Cervix: 3.6 cm in length, closed Clinical age: 31 weeks 4 days Clinical NOVA: 02/21/2024 US/US OB cervical length IMPRESSION: Closed cervix measuring 3.6 cm in length Electronically authenticated by: KIRK OATES Date: 12/24/2023 12:20 Dictated By: Kirk Oates M.D. Signed By: 12/24/23 1222 DD/ 1220 TD/TT: Transcriber: [place] [address] Ultrasound Report Signed Patient: SHERON GODINEZ MR#: [id number] : 1995 Acct:[id number] Age/Sex: 28 / F ADM Date: 12/24/23 Loc: US Attending Dr: Jose Miguel Campuzano D.O. Ordering Physician: Jose Miguel Campuzano D.O. Date of Service: 12/24/23 Procedure(s): US OB cervical length Accession Number(s): [id number] cc: NOEMI VALDERRAMA ; Jose Miguel Campuzano D.O. [place] [address] Patient Name: SANDY GODINEZ MRN: [id number] date: 1995 Sex: F Assigned Patient Location: Current Patient Location: US Accession/Order Numb er: [id number] Exam Date: 12/24/2023 12:00 Report Date: 12/24/2023 12:20 At the request of: JOSE MIGUEL CAMPUZANO Procedure: US OB cervical length EXAMINATION: US OB cervical length HISTORY: Pelvic Pain In COMPARISON: 12/05/2023 FINDINGS: position: Cephalic presentation, longitudinal lie Amniotic fluid volum e: Subjectively normal Heart rate 155 beats minute Cervix: 3.6 cm in length, closed Clinical age: 31 wee ks 4 days Clinical NOVA: 02/21/2024 US/US OB cervical length IMPRESSION: Closed cervix measur ing 3.6 cm in length Electronically authenticated by: KIRK OATES Date: 12/24/2023 12:20 Dictated By: Samm Oates M.D. Signed By: 12/24/23 1222 DD/ 1220 TD/TT: Transcriber: URINE MICROSCOPIC ONLY Reviewed date:12/18/2023 12:16:41 PM Interpretation: Performing Lab: Notes/Report: [facility] , WBC Urine 0-2 NONE SEEN #/HPF RBC Urine NONE SEEN 0-2 #/HPF Bacteria Urine TRACE NONE SEEN #/HPF Mucus Urine NONE SEEN NONE SEEN Squamous Epithelial Cell Urine MODERATE NONE/RARE #/LPF Crystals Seen? None Seen None Seen #/HPF Amorphous Sediment Urine MANY Cast Seen? NONE SEEN NONE SEEN #/LPF Urine Culture Indicated NO Performing Lab: see note ML - [facility] LB UA (CLEAN or CATCH) NANOSCIENCE TECHNICIAN or M ICRO IF IND. Reviewed date:12/18/2023 12:16:41 PM Interpretation: Performing Lab: Notes/Report: [facility] , Color Urine LT. YELLOW YELLOW Clarity Urine CLEAR CLEAR Specific [place] Urine 1.010 1.005-1.025 pH Urine 7.5 5.0-9.0 Protein Urine NEGATIVE NEG/TRACE mg/dL Glucose Urine UA NEGATIVE NEGATIVE mg/dL Bilirubin Urine NEGATIVE NEGATIVE Ketones Urine NEGATIVE NEGATIVE mg/dL Blood Urine NEGATIVE NEGATIVE Nitrite Urine NEGATIVE NEGATIVE Urobilinogen Urine 1.0 0.2-1.0 EU/dL Leukocyte Esterase Urine TRACE NEGATIVE Urine Microscopic Indicated YES Performing Lab: see note ML - [facility] LB Urine Culture - [facility] Reviewed date:11/19/2024 09:22:21 AM Interpretation: Performing Lab: Notes/Report: [facility] , Urine Culture - [facility] See Below For Report Urine Culture - [facility] <9,000 colonies/ml mixed Urine Culture - [facility] bacterial skin contaminants Urine Culture - [facility] <9,000 colonies/ml mixed Urine Culture - [facility] 2 Days Urine Culture - [facility] <9,000 colonies/ml mixed Urine Culture - [facility] Urine Culture - [facility] <9,000 colonies/ml mixed Urine Culture - [facility] Testing performed a [facility] Urine Culture - [facility] <9,000 colonies/ml mixed Urine Culture - [facility] [address] [place] [address] Urine Culture - [facility] <9,000 colonies/ml mixed Performing Lab: see note ML - [facility] LB HCG Qualitative Urine Reviewed date:11/16/2024 11:46:14 AM Interpretation: Performing Lab: Notes/Report: [facility] , HCG Qualitative Urine* NEGATIVE NEGATIVE Performing Lab: see note ML - [facility] LB URINE MICROSCOPIC ONLY Reviewed date:11/16/2024 11:46:14 AM Interpretation: Performing Lab: Notes/Report: [facility] , WBC Urine 5-10 NONE SEEN #/HPF RBC Urine 0-2 0-2 #/HPF Bacteria Urine SMALL NONE SEEN #/HPF Mucus Urine NONE SEEN NONE SEEN Squamous Epithelial Cell Urine FEW NONE/RARE #/LPF Crystals Seen? None Seen None Seen #/HPF Cast Seen? NONE SEEN NONE SEEN #/LPF Urine Culture Indicated YES-[facility] [place] Performing Lab: see note ML - [facility] LB UA (CLEAN or CATCH) NANOSCIENCE TECHNICIAN or M ICRO IF IND. Reviewed date:11/16/2024 11:46:14 AM Interpretation: Performing Lab: Notes/Report: [facility] , Color Urine YELLOW YELLOW Clarity Urine CLEAR CLEAR Specific [place] Urine 1.025 1.005-1.025 pH Urine 6.0 5.0-9.0 Protein Urine NEGATIVE NEG/TRACE mg/dL Glucose Urine UA NEGATIVE NEGATIVE mg/dL Bilirubin Urine NEGATIVE NEGATIVE Ketones Urine NEGATIVE NEGATIVE mg/dL Blood Urine TRACE-I NEGATIVE Nitrite Urine NEGATIVE NEGATIVE Urobilinogen Urine 0.2 0.2-1.0 EU/dL Leukocyte Esterase Urine MODERATE NEGATIVE Urine Microscopic Indicated YES Performing Lab: see note ML - [facility] LB CBC AUTO DIFF Reviewed date:11/16/2024 11:46:14 AM Interpretation: Performing Lab: Notes/Report: [facility] , White Blood Count 9.1 4.0-11.0 10 3/uL Red Blood Count 4.35 4.20-5.40 10 6/uL Hemoglobin 12.6 12.0-16.0 g/dL Hematocrit 38.5 36.0-48.0 % Mean Corpuscular Volume 88.5 81.0-99.0 fL Mean Corpuscular Hemoglobin 29.0 26.7-34.0 pg Mean Corpuscular HGB Conc 32.7 29.9-35.2 g/dL Red Cell Distribution Width 13.9 11.0-15.0 % Platelet Count 307 150-450 10 3/uL Mean Platelet Volume 9.9 9.5-13.5 fL Neutrophils Percent Auto 50.3 43.0-75.0 % Lymphocytes Percent Auto 35.8 20.5-60.0 % Monocytes Percent Auto 8.2 1.7-12.0 % Eosinophils Percent Auto 3.9 0.9-7.0 % Basophils Percent Auto 0.9 0.2-2.0 % Immature Granulocytes Pct Auto 0.9 0.0-0.5 % Neutrophils Absolute Auto 4.6 1.4-6.5 10 3/uL Lymphocytes Absolute Auto 3.2 1.2-3.8 10 3/uL Monocytes Absolute Auto 0.7 0.3-0.8 10 3/uL Eosinophils Absolute Auto 0.4 0.0-0.7 10 3/uL Basophils Absolute Auto 0.1 0.0-0.1 10 3/uL Immature Granulocytes Abs Auto 0.08 0.00-0.03 10 3/uL Performing Lab: see note ML - [facility] LB XR scoliosis survey Reviewed date:11/06/2024 03:06:03 PM Interpretation: Performing Lab: Notes/Report: Source Facility: [place] [address] XRay Report Signed Patient: SANDY GODINEZ MR#: [id number] : 1995 Acct:[id number] Age/Sex: 29 / F ADM Date: 11/05/24 Loc: RAD Attending Dr: NOEMI VALDERRAMA Ordering Physician: NOEMI VALDERRAMA Date of Service: 11/05/24 Procedure(s): XR scoliosis survey Accession Number(s): [id number] cc: NOEMI VALDERRAMA [place] [address] Patient Name: SANDY GODINEZ MRN: [id number] date: 1995 Sex: F Assigned Patient Location: [facility] Current Patient Location: [facility] Accession/Order Number: [id number] Exam Date: 11/05/2024 14:59 Report Date: 11/05/2024 15:02 At the request of: NOEMI VALDERRAMA Procedure: XR scoliosis survey Plain films scoliosis survey A frontal imaging with outside bending performed. There is a minimal lateral curvature of the thoracic spine with concavity to the left. This is less than 5 degrees. There is no hypermobility with sidebending. No acute chest or abdominal findings. Visualized pelvis symmetric. No vertebral abnormality identified. XR/XR scoliosis survey IMPRESSION: Mild lateral curvature of the thoracic spine with concavity to the left. No hypermobility. Impression dictated by: Vinicio Loyd M.D. 11/05/2024 3:02 PM Dictation Location: [facility] Electronically authenticated by: [id number] Y Date: 11/05/2024 15:02 Dictated By: Vinicio Loyd D.O. Signed By: 11/05/24 1505 DD/ 150 TD/TT: Transcriber: [place] [address] XRay Report Signed Patient: SHERON GODINEZ MR#: [id number] : 1995 Acct:[id number] Age/Sex: 29 / F ADM Date: 11/05/24 Loc: RAD Attending Dr: NOEMI VALDERRAMA Ordering Physician: NOEMI VALDERRAMA Date of Service: 11/05/24 Procedure(s): XR scoliosis survey Accession Number(s): [id number] cc: NOEMI VALDERRAMA [place] [address] Patient Name: ASNDY GODINEZ MRN: [id number] date: 1995 Sex: F Assigned Patient Location: [facility] Current Patient Location: RAD Accession/Order Numb er: [id number] Exam Date: 11/05/2024 14:59 Report Date: 11/05/2024 15:02 At the request of: NOEMI VALDERRAMA Procedure: XR scolio sis survey Plain films scoliosi s survey A frontal imaging wi th outside bending performed. There is a minimal lateral curvature of the thoracic spine with concavity to the left. This is le ss than 5 degrees. There is no hypermobility with sidebending. No acut e chest or abdominal findings. Visualized pelvis symmetric. No verteb ral abnormality identified. XR/XR scoliosis survey IMPRESSION: Mild lateral curvature of the thoracic spine with concavity to the left. No hypermobility. Impression dictated by: Vinicio Loyd M.D. 11/05/2024 3:02 PM Dictation Location: [place] [address] Electronically authenticated by: [id number] Y Date: 11/05/2024 15:02 Dictated By: Vinicio Loyd D.O. Signed By: 11/05/24 1505 DD/ 01 TD/TT: Transcriber: CT ABDOMEN WO or W CON Reviewed date:11/02/2024 02:13:06 PM Interpretation: Performing Lab: Notes/Report: Source Facility: [place] [address] CT Scan Report Signed Patient: SANDY GODINEZ MR#: [id number] : 1995 Acct:[id number] Age/Sex: 29 / F ADM Date: 10/27/24 Loc: CT Attending Dr: NOEMI VALDERRAMA Ordering Physician: NOEMI VALDERRAMA Date of Service: 10/27/24 Procedure(s): CT abdomen wo/w con Accession Number(s): [id number] cc: NOEMI VALDERRAMA [place] [address] Patient Name: SANDY GODINEZ MRN: [id number] date: 1995 Sex: F Assigned Patient Location: CT Current Patient Location: CT Accession/Order Number: [id number] Exam Date: 10/27/2024 10:32 Report Date: 10/27/2024 10:48 At the request of: NOEMI VALDERRAMA Procedure: CT abdomen wo/w con CT ABDOMEN WITHOUT AND WITH INTRAVENOUS CONTRAST CLINICAL DATA: Fatty liver and left hepatic lesion on ultrasound. COMPARISON: Ultrasound 10/08/[address] abdomen 01/15/[address] chest 02/10/2022 Spiral images were obtained through the abdomen before and after intravenous administration of 100 mL of Omnipaque 300. This CT exam was performed using one or more following dose reduction techniques: Automated exposure control, adjustment of the mA and/or kV according to patient size, or use of iterative reconstruction technique. Limited cuts through the lung bases show no contributory findings. There is fatty infiltration of the liver. There is also additional focal fat near the fossa of the ligamentum teres. A subtle 2 cm enhancing area is seen toward the left hepatic dome. This might correlate with the area seen on ultrasound since no additional focal lesions are noted. Although subtle, this was seen on the comparison CTA chest from 2021 and is therefore likely benign. The gallbladder is surgically absent. No common duct stones are seen. The spleen, pancreas and adrenal glands show no acute findings. There are symmetric renal nephrograms, without hydronephrosis. The abdominal aorta is normal caliber. Tiny lymph nodes are present. No ascites is seen. There is a small umbilical hernia containing fat. There are normal caliber small bowel loops. There is a small amount of colonic stool. There is subtle dextroscoliotic curvature. CT/CT abdomen wo/w con IMPRESSION: FATTY LIVER. SUBTLE ENHANCING AREA AT THE LEFT HEPATIC DOME. ALTHOUGH INDETERMINATE, THIS WAS SEEN IN 2021 AND IS THEREFORE LIKELY BENIGN. UMBILICAL HERNIA CONTAINING FAT. NO OTHER ACUTE FINDINGS. Impression dictated by: Piedad Trujillo M.D. 10/27/2024 10:48 AM Dictation Location: [place] [address] Electronically authenticated by: [id number] Y Date: 10/27/2024 10:48 Dictated By: Piedad Trujillo M.D. Signed By: 10/27/24 1050 DD/ 1048 TD/TT: Transcriber: [place] [address] CT Scan Report Signed Patient: SHERON GODINEZ MR#: [id number] : 1995 Acct:[id number] Age/Sex: 29 / F ADM Date: 10/27/24 Loc: CT Attending Dr: NOEMI VALDERRAMA Ordering Physician: NOEMI VALDERRAMA Date of Service: 10/27/24 Procedure(s): CT abdomen wo/w con Accession Number(s): [id number] cc: NOEMI VALDERRAMA [place] [address] Patient Name: SANDY GODINEZ MRN: [id number] date: 1995 Sex: F Assigned Patient Location: CT Current Patient Location: CT Accession/Order Numb er: [id number] Exam Date: 10/27/2024 10:32 Report Date: 10/27/2024 10:48 At the request of: NOEMI VALDERRAMA Procedure: CT abdome n wo/w con CT ABDOMEN WITHOUT A ND WITH INTRAVENOUS CONTRAST CLINICAL DATA: Fatty liver and left hepatic lesion on ultrasound. COMPARISON: Ultrasou nd 10/08/[address] abdomen 01/15/[address] chest 02/10/2022 Spiral images were obtained through the abdomen before and after intravenous administration of 10 0 mL of Omnipaque 300. This CT exam was performed using one or more followin g dose reduction techniques: Automated exposure control, adjustment of the mA and/or kV according to patient size, or use of iterative reconstruction technique. Limited cuts through the lung bases show no contributory findings. There is fatty infiltration of the liver. There is also additional focal fat near the fossa of th e ligamentum teres. A subtle 2 cm enhancing area is seen toward the left hepa tic dome. This might correlate with the area seen on ultrasound since no additional focal lesions are noted. Although subtle, this was seen on the comparison CTA chest from 2021 and is therefore likely benign. The gallbladder is surgically absent. No common duct stones are seen. The spleen, pancreas and adrenal glands show no acute findings. There are symmetric renal nephrograms, without hydronephrosis. The abdominal aorta is normal caliber. Tiny lymph nodes are present. No ascites is seen. The re is a small umbilical hernia containing fat. There are normal caliber small bowel loops. There is a small amount of colonic stool. There is subtle dextroscoliotic curvature. CT/CT abdomen wo/w con IMPRESSION: FATTY LIVER. SUBTLE ENHANCING ARE A AT THE LEFT HEPATIC DOME. ALTHOUGH INDETERMINATE, THIS WAS SEEN IN 2021 AND IS THEREFORE LIKELY BENIGN. UMBILICAL HERNIA CONTAINING FAT. NO OTHER ACUTE FINDINGS. Impression dictated by: Piedad Trujillo M.D. 10/27/2024 10:48 AM Dictation Location: [place] [address] Electronically authenticated by: [id number] Y Date: 10/27/2024 10:48 Dictated By: Piedad Trujillo M.D. Signed By: 10/27/24 1050 DD/ 1048 TD/TT: Transcriber: Reason For Referral Reason fibromyalgia Diagnosis 1 Fibromyalgia (M79.7) Referral Organization [facility] Referring Provider First Name Noemi Referring Provider Last Name [facility] Referring Provider [facility] Referred Provider Uri Ley Referred Provider Specialty Rheumatology Referral Priority Routine Diagnosis 1 Mild scoliosis (M41. 9) Referral Organization [facility] Referring Provider First Name Noemi Referring Provider Last Name [facility] Referring Provider [facility] Referred Provider Josue Sagastume Referred Provider Specialty Orthopedic S urgery Referral Priority Routine Diagnosis 1 Recurrent UTI (N39.0 ) Referral Organization [facility] Referring Provider First Name Noemi Referring Provider Last Name [facility] Referring Provider [facility] Referred Provider Yuliana Lomeli Referred Provider Specialty Urology Referral Priority Routine Medications Medication SIG (Take, Route, Frequency, Duration) [...] Question Answer Notes Patient is a nonsmoker Alcohol Screen (Audit-C) Question Answer Notes Did you have a drink containing alcohol in the p ast year? No Points 0 Interpretation Negative AUDIT-C (Standard) Question Answer Notes Did you have a drink containing alcohol in the p ast year? No Points 0 Interpretation Negative Problems Problem Type SNOMED Code ICD Code Onset Dates Problem Status W/U Status Risk Notes Problem Fatigue (60674581) Fatigue (R53.83) Active confirmed Problem Anemia (429676067) Anemia (D64.9) Active confirmed Problem Vitamin D deficiency (01612947) Vitamin D deficiency (E55.9) Active confirmed Problem Sinusitis (29867803) Sinusitis (J32.9) Active confirmed Problem Fatty liver (272007474) Fatty liver (K76.0) Active confirmed Problem Cholelithiasis (656733086) Cholelithiases (K80.20) Active confirmed Problem Fibromyalgia (702677297) Fibromyalgia (M79.7) Active confirmed Problem Scoliosis (768439506) Mild scoliosis (M41.9) Active confirmed Problem Abnormal liver function (55947804) Abnormal liver function (K76.89) Active confirmed Problem Lesion of liver (882860550) Liver lesion (K76.9) Active confirmed Problem Mixed anxiety and depressive disorder (556010677) Anxiety and depression (F41.9) Active confirmed Vital Signs Temperature 97.9 degrees Fahrenheit 06/22/2024 Blood pressure diastolic 82 mm Hg 11/16/2024 Height 63 in 11/16/2024 Blood pressure systolic 112 mm Hg 11/16/2024 Weight 180 lbs 11/16/2024 BMI 31.88 kg/m2 11/16/2024 Encounters Encounter Location Date Provider Diagnosis [address] [id number] 03/26/2024 Noemi Apolinar Hemorrhoid K64.9 and Fibromyalgia M79.[address] [address] 06/22/2024 Noemi Valderrama Sinusitis J32.[address] [address] 08/11/2024 Noemi Valderrama Fatigue R53.[address] [address] 08/14/2024 Noemimoses Valderrama Vitamin D deficiency E55.9 and Elevated liver enzymes R74.[address] [address] 09/16/2024 Jose Alberto Hoy Headache R51.9 and Gastroenteritis K52.[address] [address] 10/28/2024 Noemimoses Valderrama Umbilical hernia K42 .9 ; Liver lesion K76.9 and Back pain M54.9 [facility] [address] [place] [address] 11/16/2024 Noemi Valderrama Frequent UTI N39.0 ; Back pain M54.9 and Oral lesion K13.70 [facility] [address] [place] [address] 09/30/2024 Noemi Valderrama Elevated liver enzym es R74.8 [facility] [address] [place] [address] 10/06/2024 Noemi Valderrama [facility] [address] [place] [address] 10/06/2024 Noemi Valderrama Abnormal liver funct ion K76.89 [facility] [address] [place] [address] 10/08/2024 Noemi Valderrama Fatty liver K76.0 [facility] [address] [place] [address] 10/22/2024 Noemi Valderrama Fatty liver K76.0 [facility] [address] [place] [address] 11/03/2024 Noemi Valderrama Back pain M54.9 [facility] [address] [place] [address] 11/06/2024 Noemi Valderrama Mild scoliosis M41.9 [facility] [address] [place] [address] 11/18/2024 Noemi Valderrama Recurrent UTI N39.0 Assessments Encounter Date Diagnosis (ICD Code) Assessment Notes Treatment Notes Treatment Clinical Notes Section Notes 03/26/2024 Hemorrhoid (ICD-10 - K64.9) sitz baths use donut fu if not improving 06/22/2024 Sinusitis (ICD-10 - J32.9) try OTC Flonase fu if not improving 08/11/2024 Fatigue (ICD-10 - R53.83) not getting a lot of sleep, sleep broken up, has 6m old and 2 yo fu visit to review 08/14/2024 Elevated liver enzymes (ICD-10 - R74.8) repeat labs 1 month repeat US? no gallbladder 08/14/2024 Vitamin D deficiency (ICD-10 - E55.9) 09/16/2024 Headache (ICD-10 - R51.9) 11/16/2024 Frequent UTI (ICD-10 - N39.0) 09/30/2024 Elevated liver enzymes (ICD-10 - R74.8) 10/06/2024 Abnormal liver function (ICD-10 - K76.89) 10/08/2024 Fatty liver (ICD-10 - K76.0) 10/22/2024 Fatty liver (ICD-10 - K76.0) 11/03/2024 Back pain (ICD-10 - M54.9) 11/06/2024 Mild scoliosis (ICD-10 - M41.9) 11/18/2024 Recurrent UTI (ICD-10 - N39.0) 10/28/2024 Umbilical hernia (ICD-10 - K42.9) continue monitor discuss with Justen as doing exp lap 10/28/2024 Liver lesion (ICD-10 - K76.9) continue to monitor unchanged from prev imaging 11/16/2024 Back pain (ICD-10 - M54.9) Toradol 30 IM has fu ortho on 11/16/2024 Oral lesion (ICD-10 - K13.70) 10/28/2024 Back pain (ICD-10 - M54.9) 03/26/2024 Fibromyalgia (ICD-10 - M79.7) would like to revisit rheum trial of flexeril? chiro regularly, not helping 09/16/2024 Gastroenteritis (ICD-10 - K52.9) Get plenty of rest. Stay hydrated by sucking on ice chips or taking small sips of water. You can also try drinking clear soda, clear broths or noncaffeinated sports drinks. Stop eating solid foods for a few hours to let your stomach settle. East back into eating by eating bland, vlxo-uv-myeikb foods like crackers, toast, gelatin, bananas, rice and chicken. Try to avoid foods/substances including dairy products, caffeine, alcohol, nicotine and fatty or highly seasoned foods. Medications such as ibuprofen or tylenol can make your stomach more upset, so use sparingly if at all. Also avoid aycv-jgd-irhctrz anti-diarrheal medications because it can make it harder for your body to eliminate the virus. Plan Of Treatment Pending Test Test Name Order Date CMP (COMPLETE METABOLIC PANEL) 3 UA (URINALYSIS, COMPLETE) 01/31/2023 HEMOGLOBIN A1C (GLYCO) 01/31/2023 HEMOGLOBIN A1C (GLYCO) 08/11/2024 IRON, TOTAL 08/11/2024 IRON, TOTAL 01/31/2023 LIPID PANEL (CHOL/TRIG/HDL/LDL) 02/01/20 23 LIPID PANEL (CHOL/TRIG/HDL/LDL) 08/11/19 25 CBC WITH DIFF 08/11/2024 CBC WITH DIFF 01/31/2023 VITAMIN D, 25 LEVEL (TOTAL) 01/31/2023 VITAMIN D, 25 LEVEL (TOTAL) 08/11/2024 XR Spine Scoliosis Film * 10/28/2024 URINE CULTURE 01/31/2023 Insulin Level 01/31/2023 Insulin Level 08/11/2024 CMP - Comprehensive Metabolic Panel 09/15 CT Abdomen w/ + w/o Contrast 10/22/2024 CT Liver/spleen wo/w Cont 10/08/2024 COVID-19, Flu A+B IH 09/16/2024 VITAMIN B12 08/11/2024 US KIDNEYS BLADDER 11/16/2024 THYROID PANEL (T4/TSH/FREE T3) 5 THYROID PANEL (T4/TSH/FREE T3) 3 XR SCOLIOSIS SERIES 2 TO 3 VIEWS 025 CMP (COMP MET REESE) w/eGFR CKD-EPI 2024 Insurance Providers Payer Name Payer Address Payer Phone Subscriber Number Group Number Insured Name Patient Relationship to Insured Coverage Start Date Coverage End Date [employer] [place] [employer] [address] [place] [address] [id number] Sandy Godinez Self - patient is the insured 3 Medications Administered Medication Instructions Date of Administration Dosage Notes Ketorolac Tromethamine 09/16/2024 60 mg Medical (General) History Medical History History ICD Code Anemia D64.9 Fatigue R53.83 Anxiety and depression F41.9 Fibromyalgia M79.7 Surgical History Surgery Date(Month/Year) D&C Tonsillectomy Gallbladder 03/10/24 [place]
--- OUTSIDE RECORDS SUMMARY | 2024-12-15 12:07 | XMS_ITS | Encounter Summary ---
Author Organization [facility] Address [address] [address] Care Team Providers Care Morgue Attendant Name Role Phone Raudel Osborne MD Primary Care Provider [phone] Jose Miguel Campuzano DO Unavailable Encounter Details Date Type Department Care Team (Late Contact Info) Description 02/03/2024 Clinisync Result Encounter NOMS External Department Unsolicited Jose Miguel Campuzano, DO [address] [facility] [address] Sukumar [place], [facility] Social History Tobacco Use Types Packs/Day [...] EDT Office Visit [facility] BCP OB [address] [facility] [place] [address] Betsy Goodwin PA [address] [place] [id number] [phone] (work) documented as of this encounter Procedures Procedure Name Priority Date/Time Associated Diagnosis Comments US OB BPP W NON-STRESS 02/03/2024 1:18 PM EDT documented in this encounter Results * US OB BPP W NON-STRESS (02/03/2024 1:18 PM EDT) Anatomical Region Laterality Modality Other 02/03/2024 1:18 PM EDT Narrative 02/03/2024 1:20 PM EDT [address] [address] Ultrasound Report Signed Patient: DOMENIC GODINEZ MR#: [id number] : 1995 Acct:[id number] Age/Sex: 28 / F ADM Date: 02/03/24 Loc: US Attending Dr: Jose Miguel Campuzano D.O. Ordering Physician: Jose Miguel Campuzano D.O. Date of Service: 02/03/24 Procedure(s): US OB BPP w non-stress Accession Number(s): [id number] cc: DUARTE VALDERRAMA ; Jose Miguel Campuzano D.O. [address] [address] Patient Name: DOMENIC GOIDNEZ MRN: [id number] date: 1995 Sex: F Assigned Patient Location: US Current Patient Location: Accession/Order Number: [id number] Exam Date: 02/03/2024 11:30 Report Date: 02/03/2024 [...] Signed By: 02/03/24 1320 DD/ 1318 TD/TT: Driver Lifter Of Sanitation Truck: Procedure Note Radiology, Radiologist, - 02/03/2024 [place] [address] Ultrasound Report Signed Patient: DOMENIC GODINEZ JMR#: [id number] : 1995Acct:[id number] Age/Sex: 28 / FADM Date: 02/03/24 Loc: US Attending Dr: Jose Miguel Campuzano D.O. Ordering Physician: Jose Miguel Campuzano D.O. Date of Service: 02/03/24 Procedure(s): US OB BPP w non-stress Accession Number(s): [id number] cc: DUARTE VALDERRAMA ; Jose Miguel Campuzano D.O. The [place] [address] Patient Name: DOMENIC GODINEZ MRN: [facility]:[id number] date: 1995 Sex: F Assigned Patient Location: US Current Patient Location: Accession/Order Number: [id number] Exam Date: 02/03/2024 11:30 Report Date: 02/03/2024 13:18 At the request of: JOSE MIGUEL CAMPUZANO Procedure: US OB BPP w non-stress EXAMINATION: US OB BPP w non-stress HISTORY: Two vessel umbilical cord COMPARISON: No relevant comparison available. TECHNIQUE: Ultrasound biophysical profile was performed in the radiology department. non-reactive stress testing was performed by nursingstaff in the birthing center. FINDINGS: BREATHING MOVEMENTS: 2 GROSS BODY MOVEMENTS: 2 TONE: 2 QUALITATIVE AMNIOTIC FLUID VOLUME: 2 PRESENTATION: Cephalic HEART RATE: 134 AMNIOTIC FLUID VOLUME: 14.0 cm GESTATIONAL AGE: Recent weeks 3 days US/US OB BPP w non-stress IMPRESSION: Total biophysical profile score: 8/8 Electronically authenticated by: KIRK OATES Date: 02/03/2024 13:18 Dictated By: Kirk Oates M.D. Signed By:02/03/24 1320 DD/ 1318 TD/TT: Driver Lifter Of Sanitation Truck: Jose Miguel Campuzano DO [facility] Final Result documented in this encounter Visit Diagnoses Not on filedocumented in this encounter Care Teams Morgue Attendant Relationship Specialty Start Date End Date Raudel Osborne MD [address] [place] [address] PCP - General Family Medicine 03/02/24 Jose Miguel Campuzano DO [address] [place] [address] [place] [address] PCP - [facility] 03/17/24 documented as of this encounter
--- OUTSIDE RECORDS SUMMARY | 2024-12-15 12:07 | XMS_ITS | Encounter Summary ---
Author Organization [facility] Address [address] [place] [address] Care Team Providers Care Mainframe Systems Engineer Name Role Phone Raudel Osborne MD Primary Care Provider [phone] Edward Campuzano DO Unavailable Encounter Details Date Type Department Care Team (Late Contact Info) Description 02/06/2024 Abstract [facility] BCP OB [address] [place] [address] Edward Campuzano DO [address] [facility] [address] Sukumar [place], [place] [address] Social History Tobacco Use Types Packs/Day Years [...] Office Visit [facility] BCP [facility] [address] [facility] [place] [address] Betsy Goodwin PA [address] [place] [address] documented as of this encounter Visit Diagnoses Not on filedocumented in this encounter Care Teams Mainframe Systems Engineer Relationship Specialty Start Date End Date Raudel Osborne MD [address] [facility] [place] [address] PCP - General Family Medicine 03/02/24 Edward Campuzano DO [address] [place] [address] PCP - [facility] 03/17/24 documented as of this encounter
--- OUTSIDE RECORDS SUMMARY | 2024-12-15 12:07 | XMS_ITS | Encounter Summary ---
Author Organization [facility] Address [address] [place] [address] Care Team Providers Care Excavator Backhoe Operator Name Role Phone Raudel Osborne MD Primary Care Provider [phone] Jose Miguel Campuzano DO Unavailable Encounter Details Date Type Department Care Team (Late Contact Info) Description 12/30/2023 Clinisync Result Encounter NOMS External Department Unsolicited Jose Miguel Campuzano, DO [address] [facility] [address] Sukumar [place], [facility]11 Social History Tobacco Use Types Packs/Day Years [...] EDT Office Visit [facility] BCP OB [address] [facility] [place] [address] Betsy Goodwin PA [address] [place] [address] [phone] (work) documented as of this encounter Procedures Procedure Name Priority Date/Time Associated Diagnosis Comments US OB GROWTH 12/30/2023 12:40 PM EDT documented in this encounter Results * US OB GROWTH (12/30/2023 12:40 PM EDT) Anatomical Region Laterality Modality Other 12/30/2023 12:4 0 PM EDT Narrative 12/30/2023 12:43 PM EDT [address] [address] Ultrasound Report Signed Patient: DOMENIC GODINEZ MR#: [id number] : 1995 Acct:[id number] Age/Sex: 28 / F ADM Date: 12/30/23 Loc: [facility] 255-[address]: Jose Miguel Campuzano D.O. Ordering Physician: Jose Miguel Campuzano D.O. Date of Service: 12/30/23 Procedure(s): US OB growth Accession Number(s): [id number] cc: DUARTE VALDERRAMA ; Jose Miguel Campuzano D.O. 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 FINDINGS: Heart Rate: 135.68 bpm Amniotic Fluid Volume: 14.8 cm, largest fluid pocket 5.1 cm Number: 1 Position: Cephalic presentation, longitudinal lie BIOMETRY: BPD: 8.19 cm cm; 32 weeks 6 days; 56.80 %% HC: 29.74 cm cm; 32 weeks 6 days; 24.80 %% AC: 26.64 cm cm; 30 weeks 5 days; 9.30 %% FL: 5.89 cm cm; 30 weeks 5 days; 5.90 %% EFW: 1706.20 g; 9.80 %, 3 lbs. 12 oz. FL/AC: 22.12 FL/BPD: 71.99 HC/AC: 1.12 GESTATIONAL AGE: Age by EDC: 32 weeks 3 days NOVA by EDC: 2024-02-21 Age by US: 31 weeks 6 days NOVA by US: 2024-02-25 US/US OB growth IMPRESSION: Estimated weight 10th percentile Electronically authenticated by: KIRK OATES Date: 12/30/2023 12:40 Dictated By: Kirk Oates M.D. Signed By: 12/30/23 1243 DD/ 1240 TD/TT: Paint Spray Inspector: Procedure Note Radiology, Radiologist, - 12/30/2023 [place] [address] Ultrasound Report Signed Patient: DOMENIC GODINEZ R#: [id number] : 1995Acct:[id number] Age/Sex: 28 / FADM Date: 12/30/23 Loc: [facility] 255-[address]: Jose Miguel Campuzano D.O. Ordering Physician: Jose Miguel Campuzano D.O. Date of Service: 12/30/23 Procedure(s): US OB growth Accession Number(s): [id number] cc: DUARTE VALDERRAMA ; Jose Miguel Campuzano D.O. 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 FINDINGS: Heart Rate: 135.68 bpm Amniotic Fluid Volume: 14.8 cm, largest fluid pocket 5.1 cm Number: 1 Position: Cephalic presentation, longitudinal lie BIOMETRY: BPD: 8.19 cm cm; 32 weeks 6 days; 56.80 %% HC: 29.74 cm cm; 32 weeks 6 days; 24.80 %% AC: 26.64 cm cm; 30 weeks 5 days; 9.30 %% FL: 5.89 cm cm; 30 weeks 5 days; 5.90 %% EFW: 1706.20 g; 9.80 %, 3 lbs. 12 oz. FL/AC: 22.12 FL/BPD: 71.99 HC/AC: 1.12 GESTATIONAL AGE: Age by EDC: 32 weeks 3 days NOVA by EDC: 2024-02-21 Age by US: 31 weeks 6 days NOVA by US: 2024-02-25 US/US OB growth IMPRESSION: Estimated weight 10th percentile Electronically authenticated by: KIRK OATES Date: 12/30/2023 12:40 Dictated By: Kirk Oates M.D. Signed By:12/30/23 1243 DD/ 1240 TD/TT: Paint Spray Inspector: us Jose Miguel Campuzano DO [facility] Final Result documented in this encounter Visit Diagnoses Not on filedocumented in this encounter Care Teams Excavator Backhoe Operator Relationship Specialty Start Date End Date Raudel Osborne MD [address] [place] [address] PCP - General Family Medicine 03/02/24 Jose Miguel Campuzano DO [address] [place] [address] Dr [place]ukumar [place] [address] PCP - [facility] 03/17/24 documented as of this encounter
--- OUTSIDE RECORDS SUMMARY | 2024-12-15 12:07 | XMS_ITS | Encounter Summary ---
Author Organization [facility] Address [address] [place] [address] Care Team Providers Care Home Service Advisor Name Role Phone Raudel Osborne MD Primary Care Provider [phone] Edward Campuzano DO Unavailable Encounter Details Date Type Department Care Team (Late Contact Info) Description 02/06/2024 Abstract [facility] BCP OB [address] [facility] [place] [address] Edward Campuzano DO [address] [facility] [address] Sukumar [place], [place] [address] Social History Tobacco Use Types Packs/Day Years [...] OB [address] [facility] [place] [address] Betsy Goodwin PA [address] [facility] [place] [address] documented as of this encounter Visit Diagnoses Not on filedocumented in this encounter Care Teams Home Service Advisor Relationship Specialty Start Date End Date Raudel Osborne MD [address] [facility] [place] [address] PCP - General Family Medicine 03/02/24 Edward Campuzano DO [address] [place] [address] PCP - [facility] 03/17/24 documented as of this encounter
--- OUTSIDE RECORDS SUMMARY | 2024-12-15 12:07 | XMS_ITS | Encounter Summary ---
Author Organization [facility] Address [address] [place] [address] Care Team Providers Care Sales And Service Representative Name Role Phone Raudel Osborne MD Primary Care Provider [phone] Jose Miguel Campuzano DO Unavailable Encounter Details Date Type Department Care Team (Late Contact Info) Description 02/03/2024 Clinisync Result Encounter NOMS External Department Unsolicited Jose Miguel Campuzano, DO [address] [facility] [address] Sukumar [place], [facility] Social History Tobacco Use Types Packs/Day Years [...] EDT Office Visit [facility] BCP OB [address] [place] [address] Betsy Goodwin PA [address] [place] [address] [phone] (work) documented as of this encounter Procedures Procedure Name Priority Date/Time Associated Diagnosis Comments US OB UMBILICAL ARTERY DOPPLER 02/03/2024 4:27 PM EDT documented in this encounter Results * US OB UMBILICAL ARTERY DOPPLER (02/03/2024 4:27 PM EDT) Anatomical Region Laterality Modality Radiographic Ada ging 02/03/2024 4:27 PM EDT Narrative 02/03/2024 4:29 PM EDT [address] [address] Ultrasound Report Signed Patient: DOMENIC GODINEZ MR#: [id number] : 1995 Acct:[id number] Age/Sex: 28 / F ADM Date: 02/03/24 Loc: US Attending Dr: Jose Miguel Campuzano D.O. Ordering Physician: Jose Miguel Campuzano D.O. Date of Service: 02/03/24 Procedure(s): US OB umbilical artery Accession Number(s): [id number] cc: DUARTE VALDERRAMA ; Jose Miguel Campuzano D.O. [address] [address] Patient Name: DOMENIC GODINEZ MRN: [id number] date: 1995 Sex: F Assigned Patient Location: [facility] Current Patient Location: US Accession/Order Number: [id number] Exam Date: 02/03/2024 11:30 Report Date: 02/03/2024 [...] By: Kirk Oates M.D. Signed By: 02/03/24 1629 DD/ 26 TD/TT: Snack Foods Mixer Operator: Procedure Note Radiology, Radiologist, MD - 02/03/2024 [place] [address] Ultrasound Report Signed Patient: DOMENIC GODINEZ JMR#: [id number] : 1995Acct:[id number] Age/Sex: 28 / FADM Date: 02/03/24 Loc: US Attending Dr: Jose Miguel Campuzano D.O. Ordering Physician: Jose Miguel Campuzano D.O. Date of Service: 02/03/24 Procedure(s): US OB umbilical artery Accession Number(s): [id number] cc: DUARTE VALDERRAMA ; Jose Miguel Campuzano D.O. The [place] [address] Patient Name: DOMENIC GODINEZ MRN: [id number] date: 1995 Sex: F Assigned Patient Location: [facility] Current Patient Location: Accession/Order Number: [id number] Exam Date: 02/03/2024 11:30 Report Date: 02/03/2024 [...] 10th percentile, 4.25 for the 50th percentile, 6.07for the 90th percentile Age 20: 3.16 for the 10th percentile, 4.04 for the 50th percentile, 5.24for the 90th percentile Age 24: 2.70 for the 10th percentile, 3.50 for the 50th percentile, 4.75for the 90th percentile Age 28: 2.41 for the 10th percentile, 3.02 for the 50th percentile, 3.97for the 90th percentile Age 30: 2.43 for the 10th percentile, 3.04 for the 50th percentile, 3.80for the 90th percentile Age 32: 2.27 for the 10th percentile, 2.73 for the 50th percentile, 3.57for the 90th percentile Age 34: 2.08 for the 10th percentile, 2.52 for the 50th percentile, 3.41for the 90th percentile Age 36: 1.96 for the 10th percentile, 2.35 for the 50th percentile, 3.15for the 90th percentile Age 38: 1.89 for the 10th percentile, 2.24 for the 50th percentile, 3.10for the 90th percentile Age 40: 1.88 for the 10th percentile, 2.22 for the 50th percentile, 2.68for the 90th percentile Age 41: 1.93 for the 10th percentile, 2.21 for the 50th percentile, 2.55for the 90th percentile Age 42: 1.91 for the 10th percentile, 2.51 for the 50th percentile, 3.21for the 90th percentile Uteroplacental Artery: Resistive Index (RI): Normal=<0.55 High Resistance=Bilateral notches (after 26 wks) and RI>0.55. Unilateral notches (after 26 wks) and RI>0.65 Systolic/Diastolic ratio (S:D) = 2-3 is normal after 32 weeks. Electronically authenticated by: KIRK OATES Date: 02/03/2024 16:27 Dictated By: Kirk Oates M.D. Signed By:02/03/24 1629 DD/ 26 TD/TT: Snack Foods Mixer Operator: Jose Miguel Campuzano DO IMG XR PROCEDURES Final Result documented in this encounter Visit Diagnoses Not on filedocumented in this encounter Care Teams Sales And Service Representative Relationship Specialty Start Date End Date Raudel Osborne MD [address] [place] [address] PCP - General Family Medicine 03/02/24 Jose Miguel Campuzano DO [address] [place] [address] [place] [address] PCP - [facility] 03/17/24 documented as of this encounter
--- OUTSIDE RECORDS SUMMARY | 2024-12-15 12:07 | XMS_ITS | Encounter Summary ---
Author Organization [facility] Address [address] [place] [address] Care Team Providers Care Braid Pattern Setter Name Role Phone Raudel Osborne MD Primary Care Provider [phone] Edward Campuzano DO Unavailable Encounter Details Date Type Department Care Team (Late Contact Info) Description 11/19/2023 Abstract [facility]CP [facility] [address] [facility] [place] [address] Rosa Go LPN [address] [place] [address] Social History Tobacco Use Types Packs/Day Years [...] EDT Office Visit NOMS BCP OB [address] [facility] [place] [address] Betsy Goodwin PA [address] [place] [address] documented as of this encounter Visit Diagnoses Not on filedocumented in this encounter Care Teams Braid Pattern Setter Relationship Specialty Start Date End Date Raudel Osborne MD [address] [facility] [place] [address] PCP - General Family Medicine 03/02/24 Edward Campuzano DO [address] [place] [address] PCP - [facility] 03/17/24 documented as of this encounter
--- OUTSIDE RECORDS SUMMARY | 2024-12-15 12:07 | XMS_ITS | Encounter Summary ---
Author Organization [facility] Address [address] [place] [place] [address] Care Team Providers Care Business Solution Analyst Name Role Phone Raudel Osborne MD Primary Care Provider [phone] Jose Miguel Campuzano DO Unavailable Encounter Details Date Type Department Care Team (Late Contact Info) Description 11/18/2023 Clinisync Result Encounter [facility]S External Department Unsolicited Jose Miguel Campuzano, DO [address] [facility] [address] Sukumar [place], [facility]11 Social History Tobacco Use Types Packs/Day [...] EDT Office Visit [facility] BCP OB 102 [facility] [place] [phone] Betsy Goodwin PA [address] [place] [phone] documented as of this encounter Procedures Procedure Name Priority Date/Time Associated Diagnosis Comments US RIGHT UPPER QUADRANT 11/18/2023 8:46 PM EDT documented in this encounter Results * US RIGHT UPPER QUADRANT (11/18/2023 8:46 PM EDT) Anatomical Region Laterality Modality Other 11/18/2023 8:46 PM EDT Narrative 11/18/2023 8:49 PM EDT [address] [address] Ultrasound Report Signed Patient: DOMENIC GODINEZ MR#: [id number] : 1995 Acct:[id number] Age/Sex: 28 / F ADM Date: Loc: [facility] 254-[address]: Jose Miguel Campuzano D.O. Ordering Physician: Jose Miguel Campuzano D.O. Date of Service: 11/18/23 Procedure(s): US right upper quadrant Accession Number(s): [id number] cc: DUARTE VALDERRAMA ; Jose Miguel Campuzano D.O. [address] [address] Patient Name: DOMENIC GODINEZ MRN: [id number] date: 1995 Sex: F Assigned Patient Location: [facility] Current Patient Location: Accession/Order Number: [id number] Exam Date: 11/18/2023 17:30 Report Date: 11/18/2023 20:46 At the request of: JOSE MIGUEL CAMPUZANO Procedure: US right upper quadrant EXAM: US right upper quadrant HISTORY: Right upper quadrant pain, 26 weeks TECHNIQUE: Ultrasound of the right upper quadrant abdomen. COMPARISON: CT abdomen and pelvis 01/15/2022 FINDINGS: Pancreas is not well visualized. Liver: Normal in size, contour and echogenicity. No intrahepatic biliary ductal dilatation. Main portal vein is patent with appropriate direction of flow. Gallbladder: There is a stone seen near the gallbladder neck measuring up to 0.9 centimeters. No associated wall thickening or pericholecystic fluid Common bile duct: Normal in diameter, measuring cm. Right kidney: Normal in size and echogenicity measuring 10.8 cm. No hydronephrosis or renal calculus. Miscellaneous:Sonographic Manning's sign is absent US/US right upper quadrant IMPRESSION: Stone seen near the gallbladder neck measuring up to 0.9 centimeters which may represent an impacted stone. No associated wall thickening or pericholecystic fluid. No sonographic Manning's sign. No convincing evidence of acute cholecystitis at this time. Recommend close clinical follow-up. Electronically authenticated by: JEANINE SANDOVAL Date: 11/18/2023 20:46 Dictated By: Jeanine Sandoval M.D. Signed By: 11/18/232048 DD/ 45 TD/TT: Webfed Offset Press Operator: Procedure Note Radiology, Radiologist, MD - 11/18/2023 [place] [address] Ultrasound Report Signed Patient: DOMENIC GODINEZ R#: [id number] : 1995Acct:[id number] Age/Sex: 28 / FADM Date: Loc: [facility] 254-[address]: Jose Miguel Campuzano D.O. Ordering Physician: Jose Miguel Campuzano D.O. Date of Service: 11/18/23 Procedure(s): US right upper quadrant Accession Number(s): [id number] cc: DUARTE VALDERRAMA ; Jose Miguel Campuzano D.O. The [place] [id number] Patient Name: DOMENIC GODINEZ MRN: [id number] date: 1995 Sex: F Assigned Patient Location: [facility] Current Patient Location: Accession/Order Number: [id number] Exam Date: 11/18/2023 17:30 Report Date: 11/18/2023 20:46 At the request of: JOSE MIGUEL CAMPUZANO Procedure: US right upper quadrant EXAM: US right upper quadrant HISTORY: Right upper quadrant pain, 26 weeks TECHNIQUE: Ultrasound of the right upper quadrant abdomen. COMPARISON: CT abdomen and pelvis 01/15/2022 FINDINGS: Pancreas is not well visualized. Liver: Normal in size, contour and echogenicity. No intrahepatic biliary ductal dilatation. Main portal vein is patent with appropriate direction of flow. Gallbladder: There is a stone seen near the gallbladder neck measuring upto 0.9 centimeters. No associated wall thickening or pericholecystic fluid Common bile duct: Normal in diameter, measuring cm. Right kidney: Normal in size and echogenicity measuring 10.8 cm. No hydronephrosis or renal calculus. Miscellaneous:Sonographic Manning's sign is absent US/US right upper quadrant IMPRESSION: Stone seen near the gallbladder neck measuring up to 0.9 centimeters whichmay represent an impacted stone. No associated wall thickening orpericholecystic fluid. No sonographic Manning's sign. No convincing evidence of acute cholecystitis at this time. Recommend close clinical follow-up. Electronically authenticated by: JEANINE SANDOVAL Date: 11/18/2023 20:46 Dictated By: Jeanine Sandoval M.D. Signed By:11/18/232048 DD/ 45 TD/TT: Webfed Offset Press Operator: Jose Miguel Campuzano DO [facility] Final Result documented in this encounter Visit Diagnoses Not on filedocumented in this encounter Care Teams Business Solution Analyst Relationship Specialty Start Date End Date Raudel Osborne MD [address] [place] [address] PCP - General Family Medicine 03/02/24 Jose Miguel Campuzano DO [address] [place] [address] [place] [address] PCP - [facility] 03/17/24 documented as of this encounter
--- OUTSIDE RECORDS SUMMARY | 2024-12-15 12:07 | XMS_ITS | Encounter Summary ---
Author Organization [facility] Address [address] [place] [address] Care Team Providers Care Mileage Clerk Name Role Phone Raudel Osborne MD Primary Care Provider [phone] Jose Miguel Campuzano DO Unavailable Encounter Details Date Type Department Care Team (Late Contact Info) Description 10/15/2023 Clinisync Result Encounter [facility] External Department Unsolicited Jose Miguel Campuzano, DO [address] [facility] [address] Sukumar [place], [facility]11 Social History Tobacco Use Types Packs/Day Years [...] EDT Office Visit [facility] BCP OB [address] [facility] [place] [phone] Betsy Goodwin PA [address] [place] [phone] documented as of this encounter Procedures Procedure Name Priority Date/Time Associated Diagnosis Comments US OB ANATOMY 10/15/2023 9:56 AM EDT documented in this encounter Results * US OB ANATOMY (10/15/2023 9:56 AM EDT) Anatomical Region Laterality Modality Other 10/15/2023 9:56 AM EDT Narrative 10/15/2023 9:58 AM EDT [address] [address] Ultrasound Report Signed Patient: SANDY GODINEZ MR#: [id number] : 1995 Acct:[id number] Age/Sex: 28 / F ADM Date: 10/15/23 Loc: [facility] Attending Dr: Jose Miguel Campuzano D.O. Ordering Physician: Jose Miguel Campuzano D.O. Date of Service: 10/15/23 Procedure(s): US OB anatomy Accession Number(s): [id number] cc: DUARTE VALDERRAMA ; Jose Miguel Campuzano D.O. [address] [address] Patient Name: SANDY GODINEZ MRN: [id number] date: 1995 Sex: F Ass[facility] Accession/Order Number: [id number] Exam Date: 10/15/2023 08:32 Report Date: 10/15/2023 09:56 At the request of: JOSE MIGUEL CAMPUZANO Procedure: US OB anatomy EXAMINATION: US OB cervical length, US OB anatomy HISTORY: CERVICAL LENGTH COMPARISON: No relevant comparison available. TECHNIQUE: Transabdominal sonographic examination was performed for obstetrical and evaluation. FINDINGS: Number: 1 Heart Rate: 145.0 bpm Amniotic Fluid Volume: Subjectively normal position: Cephalic presentation, longitudinal lie Placental Location: ANTERIOR, the placental edge is 7.0 cm from the internal os Cervix Length: 4.4 cm , closed Normal anatomy: Lateral ventricles, cerebellum, posterior fossa, nose, lips, orbits, four-chamber heart, RVOT, LVOT, diaphragm, stomach, kidneys, abdominal cord insertion, bladder, umbilical arteries, spine, extremities Abnormal anatomy: Two-vessel cord BIOMETRY: BPD: 5.1 cm 21 weeks 3 days , 39% HC: 18.8 cm 21 weeks 1 days, 21% AC: 15.8 cm 20 weeks 6 days, 23% FL: 3.5 cm 21 weeks 1 days , 25% EFW:394.3 grams; 14 ounces, 20% FL/AC: 22.3 FL/BPD: 69.4 HC/AC: 1.2 GESTATIONAL AGE: Age by EDC: 21 weeks 4 days NOVA by EDC: 02/21/2024 Age by current US: 21 weeks 1 days NOVA by current US: 02/24/2024 US/US OB anatomy IMPRESSION: 2 vessel umbilical cord Otherwise normal anatomy scan Closed cervix measuring 4.4 cm in length *Reference: [employer] Practice Guideline for the performance of Obstetric Ultrasound Examinations, March 17, 2007. Electronically authenticated by: KIRK OATES Date: 10/15/2023 09:56 Dictated By: Kirk Oates M.D. Signed By: 10/15/2358 DD/ TD/TT: Associate Professor Of Art: Procedure Note Radiology, Radiologist, MD - 10/15/2023 [place] [address] Ultrasound Report Signed Patient: SANDY GODINEZ R#: [id number] : 1995Acct:[id number] Age/Sex: 28 / FADM Date: 10/15/23 Loc: [facility] Attending Dr: Jose Miguel Campuzano D.O. Ordering Physician: Jose Miguel Campuzano D.O. Date of Service: 10/15/23 Procedure(s): US OB anatomy Accession Number(s): [id number] cc: DUARTE VALDERRAMA ; Jose Miguel Campuzano D.O. The [place] [address] Patient Name: SANDY GODINEZ MRN: [id number] date: 1995 Sex: F Assigned Patient [facility] Current Patient Location: [facility] Accession/Order Number: [id number] Exam Date: 10/15/2023 08:32 Report Date: 10/15/2023 09:56 At the request of: JOSE MIGUEL CAMPUZANO Procedure: US OB anatomy EXAMINATION: US OB cervical length, US OB anatomy HISTORY: CERVICAL LENGTH COMPARISON: No relevant comparison available. TECHNIQUE: Transabdominal sonographic examination was performed for obstetrical and evaluation. FINDINGS: Number: 1 Heart Rate: 145.0 bpm Amniotic Fluid Volume: Subjectively normal position: Cephalic presentation, longitudinal lie Placental Location: ANTERIOR, the placental edge is 7.0 cm from theinternal os Cervix Length: 4.4 cm , closed Normal anatomy: Lateral ventricles, cerebellum, posterior fossa, nose,lips, orbits, four-chamber heart, RVOT, LVOT, diaphragm, stomach, kidneys,abdominal cord insertion, bladder, umbilical arteries, spine, extremities Abnormal anatomy: Two-vessel cord BIOMETRY: BPD: 5.1 cm 21 weeks 3 days , 39% HC: 18.8 cm 21 weeks 1 days, 21% AC: 15.8 cm 20 weeks 6 days, 23% FL: 3.5 cm 21 weeks 1 days , 25% EFW:394.3 grams; 14 ounces, 20% FL/AC: 22.3 FL/BPD: 69.4 HC/AC: 1.2 GESTATIONAL AGE: Age by EDC: 21 weeks 4 days NOVA by EDC: 02/21/2024 Age by current US: 21 weeks 1 days NOVA by current US: 02/24/2024 US/US OB anatomy IMPRESSION: 2 vessel umbilical cord Otherwise normal anatomy scan Closed cervix measuring 4.4 cm in length *Reference: [employer]UM Practice Guideline for the performance of Obstetric Ultrasound Examinations, March 17, 2007. Electronically authenticated by: KIRK OATES Date: 10/15/2023 09:56 Dictated By: Kirk Oates M.D. Signed By:10/15/2358 DD/ 5 TD/TT: Associate Professor Of Art: us Jose Miguel Campuzano DO [facility] Final Result documented in this encounter Visit Diagnoses Not on filedocumented in this encounter Care Teams Mileage Clerk Relationship Specialty Start Date End Date Raudel Osborne MD [address] [facility] [place] [address] PCP - General Family Medicine 03/02/24 Jose Miguel Campuzano DO [address] [place] [address] [place] [address] PCP - [facility] 03/17/24 documented as of this encounter
--- OUTSIDE RECORDS SUMMARY | 2024-12-15 12:07 | XMS_ITS | Encounter Summary ---
Author Organization [facility] Address [address] [place] [address] Care Team Providers Care Fisher Net Name Role Phone Raudel Osborne MD Primary Care Provider [phone] Jose Miguel Campuzano DO Unavailable Encounter Details Date Type Department Care Team (Late Contact Info) Description 12/24/2023 Clinisync Result Encounter [facility] External Department Unsolicited Jose Miguel Campuzano, DO [address] [facility] [address] Sukumar [place], [facility]11 Social History Tobacco Use Types Packs/Day Years [...] EDT Office Visit [facility] BCP OB 102 [facility] [place] [phone] Betsy Goodwin PA [address] [place] [phone] (work) documented as of this encounter Procedures Procedure Name Priority Date/Time Associated Diagnosis Comments US OB CERVICAL LENGTH 12/24/2023 12:20 PM EDT documented in this encounter Results * US OB CERVICAL LENGTH (12/24/2023 12:20 PM EDT) Anatomical Region Laterality Modality Other 12/24/2023 12:2 0 PM EDT Narrative 12/24/2023 12:22 PM EDT [address] [address] Ultrasound Report Signed Patient: DOMENIC GODINEZ MR#: [id number] : 1995 Acct:[id number] Age/Sex: 28 / F ADM Date: 12/24/23 Loc: US Attending Dr: Jose Miguel Campuzano D.O. Ordering Physician: Jose Miguel Campuzano D.O. Date of Service: 12/24/23 Procedure(s): US OB cervical length Accession Number(s): [id number] cc: DUARTE VALDERRAMA ; Jose Miguel Campuzano D.O. [address] [address] Patient Name: DOMENIC GODINEZ MRN: [id number] date: 1995 Sex: F Assigned Patient Location: Current Patient Location: Accession/Order Number: [id number] Exam Date: 12/24/2023 12:00 Report Date: 12/24/2023 [...] Dictated By: Kirk Oates M.D. Signed By: 12/24/231221 DD/ 19 TD/TT: Strip Presser: Procedure Note Radiology, Radiologist, - 12/24/2023 [place] [address] Ultrasound Report Signed Patient: DOMENIC GODINEZ R#: [id number] : 1995Acct:[id number] Age/Sex: 28 / FADM Date: 12/24/23 Loc: US Attending Dr: Jose Miguel Campuzano D.O. Ordering Physician: Jose Miguel Campuzano D.O. Date of Service: 12/24/23 Procedure(s): US OB cervical length Accession Number(s): [id number] cc: DUARTE VALDERRAMA ; Jose Miguel Campuzano D.O. The [place] [address] Patient Name: DOMENIC GODINEZ MRN: [id number] date: 1995 Sex: F Assigned Patient Location: Current Patient Location: Accession/Order Number: [id number] Exam Date: 12/24/2023 12:00 Report Date: 12/24/2023 [...] 12:20 Dictated By: Kirk Oates M.D. Signed By:12/24/231221 DD/ 19 TD/TT: Strip Presser: us Jose Miguel Campuzano DO [facility] Final Result documented in this encounter Visit Diagnoses Not on filedocumented in this encounter Care Teams Fisher Net Relationship Specialty Start Date End Date Raudel Osborne MD [address] [facility] [place] [address] PCP - General Family Medicine 03/02/24 Jose Miguel Campuzano DO [address] [place] [address] [place] [address] PCP - [facility] 03/17/24 documented as of this encounter
--- OUTSIDE RECORDS SUMMARY | 2024-12-15 12:07 | XMS_ITS | Encounter Summary ---
Author Organization [facility] Address [address] [place] [address] Care Team Providers Care Packager And Strapper Name Role Phone Raudel Osborne MD Primary Care Provider [phone] Jose Miguel Campuzano DO Unavailable Encounter Details Date Type Department Care Team (Late Contact Info) Description 10/15/2023 Clinisync Result Encounter [facility] External Department Unsolicited Jose Miguel Campuzano, DO [address] [facility] [address] Sukumar [place], [facility]11 Social History Tobacco Use Types Packs/Day [...] EDT Office Visit [facility] BCP OB [address] [facility] [place] [phone] Betsy Goodwin PA [address] [place] [phone] (Mdpr) documented as of this encounter Procedures Procedure Name Priority Date/Time Associated Diagnosis Comments US OB CERVICAL LENGTH 10/15/2023 9:56 AM EDT documented in this encounter Results * US OB CERVICAL LENGTH (10/15/2023 9:56 AM EDT) Anatomical Region Laterality Modality Other 10/15/2023 9:56 AM EDT Narrative 10/15/2023 9:59 AM EDT [address] [address] Ultrasound Report Signed Patient: SANDY GODINEZ MR#: [id number] : 1995 Acct:[id number] Age/Sex: 28 / F ADM Date: 10/15/23 Loc: [facility] Attending Dr: Jose Miguel Campuzano D.O. Ordering Physician: Jose Miguel Campuzano D.O. Date of Service: 10/15/23 Procedure(s): US OB cervical length Accession Number(s): [id number] cc: DUARTE VALDERRAMA ; Jose Miguel Campuzano D.O. [address] [address] Patient Name: SANDY GODINEZ MRN: [id number] date: 1995 Sex: F Assigned Patient Location: [facility] Current Patient Location: [facility] Accession/Order Number: [id number] Exam Date: 10/15/2023 08:32 Report Date: 10/15/2023 09:56 At the request of: JOSE MIGUEL CAMPUZANO Procedure: US OB cervical length EXAMINATION: US OB cervical length, US OB [...] NOVA by current US: 02/24/2024 US/US OB cervical length IMPRESSION: 2 vessel umbilical cord Otherwise normal anatomy scan Closed cervix measuring 4.4 cm in length *Reference: [employer]UM Practice Guideline for the performance of Obstetric Ultrasound Examinations, March 17, 2007. Electronically authenticated by: KIRK OATES Date: 10/15/2023 09:56 Dictated By: Kirk Oates M.D. Signed By: 10/15/23 0959 DD/ TD/TT: Pain Management Nurse: Procedure Note Radiology, Radiologist, MD - 10/15/2023 [place] [address] Ultrasound Report Signed Patient: SANDY GODINEZ R#: [id number] : 1995Acct:[id number] Age/Sex: 28 / FADM Date: 10/15/23 Loc: [facility] Attending Dr: Jose Miguel Campuzano D.O. Ordering Physician: Jose Miguel Campuzano D.O. Date of Service: 10/15/23 Procedure(s): US OB cervical length Accession Number(s): [id number] cc: DUARTE VALDERRAMA ; oJse Miguel Campuzano D.O. The [place] [phone] Patient Name: SANDY GODINEZ MRN: [id number] date: 1995 Sex: F Assigned Patient Location: [facility] Current Patient Location: [facility] Accession/Order Number: [id number] Exam Date: 10/15/2023 08:32 Report Date: 10/15/2023 09:56 At the request of: JOSE MIGUEL CAMPUZANO Procedure: US OB cervical length EXAMINATION: US OB cervical length, US OB [...] NOVA by current US: 02/24/2024 US/US OB cervical length IMPRESSION: 2 vessel umbilical cord Otherwise normal anatomy scan Closed cervix measuring 4.4 cm in length *Reference: [employer]UM Practice Guideline for the performance of Obstetric Ultrasound Examinations, March 17, 2007. Electronically authenticated by: KIRK OATES Date: 10/15/2023 09:56 Dictated By: Kirk Oates M.D. Signed By:10/15/2359 DD/ 5 TD/TT: Pain Management Nurse: us Jose Miguel Campuzano DO [facility] Final Result documented in this encounter Visit Diagnoses Not on filedocumented in this encounter Care Teams Packager And Strapper Relationship Specialty Start Date End Date Raudel Osborne MD [address] [place] [address] PCP - General Family Medicine 03/02/24 Jose Miguel Campuzano DO [address] [place] [address] [place] [address] PCP - [facility] 03/17/24 documented as of this encounter
--- OUTSIDE RECORDS SUMMARY | 2024-12-15 12:08 | XMS_ITS | Encounter Summary ---
Author Organization [facility] Address [address] [place] [place] [address] Care Team Providers Care Manager University Name Role Phone Raudel Osborne MD Primary Care Provider [phone] Jose Miguel Campuzano DO Unavailable Encounter Details Date Type Department Care Team (Late Contact Info) Description 01/20/2024 Clinisync Result Encounter [facility] External Department Unsolicited Jose Miguel Campuzano, DO [address] [facility] [address] Sukumar [place], [facility]11 Social History Tobacco Use Types Packs/Day [...] Office Visit [facility]CP OB [address] [facility] [place] [phone] Betsy Goodwin PA [address] [place] [phone] (work) documented as of this encounter Procedures Procedure Name Priority Date/Time Associated Diagnosis Comments US OB BPP W NON-STRESS 01/20/2024 2:53 PM EDT documented in this encounter Results * US OB BPP W NON-STRESS (01/20/2024 2:53 PM EDT) Anatomical Region Laterality Modality Other 01/20/2024 2:53 PM EDT Narrative 01/20/2024 2:55 PM EDT [address] [address] Ultrasound Report Signed Patient: DOMENIC GODINEZ MR#: [id number] : 1995 Acct:[id number] Age/Sex: 28 / F ADM Date: 01/20/24 Loc: US Attending Dr: Jose Miguel Campuzano D.O. Ordering Physician: Jose Miguel Campuzano D.O. Date of Service: 01/20/24 Procedure(s): US OB BPP w non-stress Accession Number(s): [id number] cc: DUARTE VALDERRAMA ; Jose Miguel Campuzano D.O. [address] [address] Patient Name: DOMENIC GODINEZ MRN: [id number] date: 1995 Sex: F Assigned Patient Location: US Current Patient Location: Accession/Order Number: [id number] Exam Date: 01/20/2024 10:58 Report Date: 01/20/2024 14:53 At the request of: JOSE MIGUEL CAMPUZANO Procedure: US OB BPP w non-stress EXAMINATION: US OB BPP w non-stress HISTORY:Single vessel of umbilical cord Q27.0 COMPARISON: Ultrasound OB biophysical 01/13/2024 TECHNIQUE: Ultrasound biophysical profile was performed in the radiology department. BREATHING MOVEMENTS: 2 GROSS BODY MOVEMENTS: 2 TONE: 2 QUALITATIVE AMNIOTIC FLUID VOLUME: 2 PRESENTATION: Cephalic HEART RATE: 137 bpm AMNIOTIC FLUID VOLUME: 13.5 cm; normal range GESTATIONAL AGE: 35 weeks 3 days US/US OB BPP w non-stress IMPRESSION: Total biophysical profile score: 8 Electronically authenticated by: JOSUE KEBEDE Date: 01/20/2024 14:53 Dictated By: Josue Kebede M.D. Signed By: 01/20/24 1455 DD/ 145 TD/TT: Translational Specialist: Procedure Note Radiology, Radiologist, - 01/20/2024 [place] [address] Ultrasound Report Signed Patient: DOMENIC GODINEZ JMR#: [id number] : 1995Acct:[id number] Age/Sex: 28 / FADM Date: 01/20/24 Loc: US Attending Dr: Jose Miguel Campuzano D.O. Ordering Physician: Jose Miguel Campuzano D.O. Date of Service: 01/20/24 Procedure(s): US OB BPP w non-stress Accession Number(s): [id number] cc: DUARTE VALDERRAMA ; Jose Miguel Campuzano D.O. The [place] [address] Patient Name: DOMENIC GODINEZ MRN: [facility]:[id number] date: 1995 Sex: F Assigned Patient Location: US Current Patient Location: Accession/Order Number: [id number] Exam Date: 01/20/2024 10:58 Report Date: 01/20/2024 14:53 At the request of: JOSE MIGUEL CAMPUZANO Procedure: US OB BPP w non-stress EXAMINATION: US OB BPP w non-stress HISTORY:Single vessel of umbilical cord Q27.0 COMPARISON: Ultrasound OB biophysical 01/13/2024 TECHNIQUE: Ultrasound biophysical profile was performed in the radiology department. BREATHING MOVEMENTS: 2 GROSS BODY MOVEMENTS: 2 TONE: 2 QUALITATIVE AMNIOTIC FLUID VOLUME: 2 PRESENTATION: Cephalic HEART RATE: 137 bpm AMNIOTIC FLUID VOLUME: 13.5 cm; normal range GESTATIONAL AGE: 35 weeks 3 days US/US OB BPP w non-stress IMPRESSION: Total biophysical profile score: 8 Electronically authenticated by: JOSUE KEBEDE Date: 01/20/2024 14:53 Dictated By: Josue Kebede M.D. Signed By:01/20/24 1455 DD/ 1453 TD/TT: Translational Specialist: Jose Miguel Campuzano DO [facility] Final Result documented in this encounter Visit Diagnoses Not on filedocumented in this encounter Care Teams Manager University Relationship Specialty Start Date End Date Raudel Osborne MD [address] [place] [address] PCP - General Family Medicine 03/02/24 Jose Miguel Campuzano DO [address] [place] [address] Dr [place]ukumar [place] [address] PCP - [facility] 03/17/24 documented as of this encounter
--- OUTSIDE RECORDS SUMMARY | 2024-12-15 12:08 | XMS_ITS | Encounter Summary ---
Author Organization [facility] Address [address] [place] [address] Care Team Providers Care Virtual Office Assistant Name Role Phone Raudel Osborne MD Primary Care Provider [phone] Edward Campuzano DO Unavailable Encounter Details Date Type Department Care Team (Late Contact Info) Description 01/14/2024 Abstract [facility] OB [address] [facility] [place] [address] Betsy Goodwin PA [address] [place] [address] Dr [place], [place] [address] Social History Tobacco Use Types Packs/Day Years [...] 12/31/2024 9:30 AM EDT Office Visit [facility] [address] [facility] [address] Betsy Goodwin, PA [address] [place] [address] documented as of this encounter Visit Diagnoses Not on filedocumented in this encounter Care Teams Virtual Office Assistant Relationship Specialty Start Date End Date Raudel Osborne MD [address] [facility] [place] [address] PCP - General Family Medicine 03/02/24 Edward Campuzano DO [address] [place] [address] PCP - [facility] 03/17/24 documented as of this encounter
--- OUTSIDE RECORDS SUMMARY | 2024-12-15 12:08 | XMS_ITS | Encounter Summary ---
Author Organization [facility] Address [address] [place] [address] Care Team Providers Care Hims Manager Name Role Phone Raudel Osborne MD Primary Care Provider [phone] Edward Campuzano DO Unavailable Encounter Details Date Type Department Care Team (Late Contact Info) Description 01/21/2024 Abstract [facility] OB [address] [facility] [place] [address] Edward Campuzano DO [address] [facility] [address] [place], [place] [address] Social History Tobacco Use Types Packs/Day Years [...] OB [address] [place] [address] Betsy Goodwin PA [address] [facility] [place] [address] documented as of this encounter Visit Diagnoses Not on filedocumented in this encounter Care Teams Hims Manager Relationship Specialty Start Date End Date Raudel Osborne MD [address] [facility] [place] [address] PCP - General Family Medicine 03/02/24 Edward Campuzano DO [address] [place] [address] PCP - [facility] 03/17/24 documented as of this encounter
--- OUTSIDE RECORDS SUMMARY | 2024-12-15 12:08 | XMS_ITS | Encounter Summary ---
Author Organization [facility] Address [address] [place] [address] Care Team Providers Care Alcohol Still Operator Name Role Phone Raudel Osborne MD Primary Care Provider [phone] Jose Miguel Campuzano DO Unavailable Encounter Details Date Type Department Care Team (Late Contact Info) Description 01/06/2024 Clinisync Result Encounter [facility] External Department Unsolicited Jose Miguel Campuzano, DO [address] [facility] [address] Sukumar [place], [facility] Social History Tobacco Use Types Packs/Day [...] EDT Office Visit [facility] [address] [facility] [place] [address] Betsy Goodwin PA [address] [place] [address] [phone] (work) documented as of this encounter Procedures Procedure Name Priority Date/Time Associated Diagnosis Comments US OB BPP W NON-STRESS 01/06/2024 12:45 PM EDT documented in this encounter Results * US OB BPP W NON-STRESS (01/06/2024 12:45 PM EDT) Anatomical Region Laterality Modality Other 01/06/2024 12:4 5 PM EDT Narrative 01/06/2024 12:48 PM EDT [address] [address] Ultrasound Report Signed Patient: DOMENIC GODINEZ MR#: [id number] : 1995 Acct:[id number] Age/Sex: 28 / F ADM Date: 01/06/24 Loc: US Attending Dr: Jose Miguel Campuzano D.O. Ordering Physician: Jose Miguel Campuzano D.O. Date of Service: 01/06/24 Procedure(s): US OB BPP w non-stress Accession Number(s): [id number] cc: DUARTE VALDERRAMA ; Jose Miguel Campuzano D.O. [address] [address] Patient Name: DOMENIC GODINEZ MRN: [id number] date: 1995 Sex: F Assigned Patient Location: [facility] Current Patient Location: Accession/Order Number: [id number] Exam Date: 01/06/2024 11:06 Report Date: 01/06/2024 12:45 At the request of: JOSE MIGUEL CAMPUZANO Procedure: US OB BPP w non-stress EXAMINATION: US OB BPP w non-stress HISTORY: CIRCUMVALLATE PLACENTA O43.112 COMPARISON: No relevant comparison available. TECHNIQUE: Ultrasound biophysical profile was performed in the radiology department. non-reactive stress testing was performed by nursing staff in the birthing center. FINDINGS: BREATHING MOVEMENTS: 2 GROSS BODY MOVEMENTS: 2 TONE: 2 QUALITATIVE AMNIOTIC FLUID VOLUME: 2 PRESENTATION: Cephalic HEART RATE: 137 bpm AMNIOTIC FLUID VOLUME: 21.7 cm GESTATIONAL AGE: 33 weeks 3 days US/US OB BPP w non-stress IMPRESSION: Total biophysical profile score: 8/8 Electronically authenticated by: KIRK OATES Date: 01/06/2024 12:45 Dictated By: Kirk Oates M.D. Signed By: 01/06/24 1248 DD/ 1245 TD/TT: Information Technology Security Analyst: Procedure Note Radiology, Radiologist, MD - 01/06/2024 [place] [address] Ultrasound Report Signed Patient: DOMENIC GODINEZ JMR#: [id number] : 1995Acct:[id number] Age/Sex: 28 / FADM Date: 01/06/24 Loc: US Attending Dr: Jose Miguel Campuzano D.O. Ordering Physician: Jose Miguel Campuzano D.O. Date of Service: 01/06/24 Procedure(s): US OB BPP w non-stress Accession Number(s): [id number] cc: DUARTE VALDERRAMA ; Jose Miguel Campuzano D.O. The [place] [address] Patient Name: DOMENIC GODINEZ MRN: [id number] date: 1995 Sex: F Assigned Patient Location: [facility] Current Patient Location: Accession/Order Number: [id number] Exam Date: 01/06/2024 11:06 Report Date: 01/06/2024 12:45 At the request of: JOSE MIGUEL CAMPUZANO Procedure: US OB BPP w non-stress EXAMINATION: US OB BPP w non-stress HISTORY: CIRCUMVALLATE PLACENTA O43.112 COMPARISON: No relevant comparison available. TECHNIQUE: Ultrasound biophysical profile was performed in the radiology department. non-reactive stress testing was performed by nursingstaff in the birthing center. FINDINGS: BREATHING MOVEMENTS: 2 GROSS BODY MOVEMENTS: 2 TONE: 2 QUALITATIVE AMNIOTIC FLUID VOLUME: 2 PRESENTATION: Cephalic HEART RATE: 137 bpm AMNIOTIC FLUID VOLUME: 21.7 cm GESTATIONAL AGE: 33 weeks 3 days US/US OB BPP w non-stress IMPRESSION: Total biophysical profile score: 8/8 Electronically authenticated by: KIRK OATES Date: 01/06/2024 12:45 Dictated By: Kirk Oates M.D. Signed By:01/06/24 1248 DD/ 1245 TD/TT: Information Technology Security Analyst: Jose Miguel Campuzano DO [facility] Final Result documented in this encounter Visit Diagnoses Not on filedocumented in this encounter Care Teams Alcohol Still Operator Relationship Specialty Start Date End Date Raudel Osborne MD [address] [place] [address] PCP - General Family Medicine 03/02/24 Jose Miguel Campuzano DO [address] [facility] [place] [address] PCP - [facility] 03/17/24 documented as of this encounter
--- OUTSIDE RECORDS SUMMARY | 2024-12-15 12:08 | XMS_ITS | Encounter Summary ---
Author Organization [facility] [employer] [facility] tem Address [id number] [address] [place] [address] Care Team Providers Care Children'S Entertainer Name Role Phone Unavailable Primary Care Provider Unavailabl e Encounter Details Date Type Department Care Team (Late st Contact Info) Description 11/20/2023 Orders Only Maternal- Medicine at [facility] [address] [place] [phone] Jennifer Smiley RN 24 weeks gestation of ; Single umbilical artery Social History Tobacco Use Types Packs/Day Years Used Date Smoking Tobacco: Never Alcohol Use Standard Drinks/Week Comments Yes 0 (1 standard drink = 0.6 oz pur e alcohol) Childcare Answer Date Recorded Childcare Unknown 01/19/2020 Employment Answer Date Recorded Employment Unknown 01/19/2020 Hunger Screening Answer Date Recorded Within the past 12 months we worried whether our food would run out before we got money to buy more. Never True 11/07/2023 Within the past 12 months th e food we bought just didn't last and we didn't have money to get more. Never True 11/07/2023 Purpose - Life Answer Date Recorded Purpose and direction in life Unknown Comments Yes Sex and Gender Information Value Date Recorded Sex Assigned at Not on file Legal Sex Female 9:56 AM EDT Gender Identity Not on file Sexual Orientation Not on file documented as of this encounter Plan of Treatment Not on file documented as of this encounter Procedures Procedure Name Priority Date/Time Associated Diagnosis Comments UNLISTED LAB TEST Routine 11/07/2023 24 weeks gestation of Single umbilical artery documented in this encounter Results * Unlisted Lab Test (11/07/2023) 11/07/2023 us Mitul Stanford MD LAB BLOOD ORDERABLES Final Result [facility] documented in this encounter Visit Diagnoses Diagnosis 24 weeks gestation of 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
--- OUTSIDE RECORDS SUMMARY | 2024-12-15 12:08 | XMS_ITS | Encounter Summary ---
Author Organization [facility] Address [address] [place] [place] [address] Care Team Providers Care P 3 Armament/Ordnance Ima Technician Name Role Phone Raudel Osborne MD Primary Care Provider [phone] Jose Miguel Campuzano DO Unavailable Encounter Details Date Type Department Care Team (Late Contact Info) Description 12/30/2023 Clinisync Result Encounter [facility] External Department Unsolicited Jose Miguel Campuzano, DO [address] [facility] [address], [facility]11 Social History Tobacco Use Types Packs/Day [...] EDT Office Visit [facility] OB [address] [facility] [place] [address] Betsy Goodwin PA [address] [place] [address] [phone] (work) documented as of this encounter Procedures Procedure Name Priority Date/Time Associated Diagnosis Comments US OB BPP W NON-STRESS 12/30/2023 12:39 PM EDT documented in this encounter Results * US OB BPP W NON-STRESS (12/30/2023 12:39 PM EDT) Anatomical Region Laterality Modality Other 12/30/2023 12:3 9 PM EDT Narrative 12/31/2023 11:52 AM EDT [address] [address] Ultrasound Report Signed Patient: DOMENIC GODINEZ MR#: [id number] : 1995 Acct:[id number] Age/Sex: 28 / F ADM Date: 12/30/23 Loc: US Attending Dr: Jose Miguel Campuzano D.O. Ordering Physician: Jose Miguel Campuzano D.O. Date of Service: 12/30/23 Procedure(s): US OB BPP w non-stress Accession Number(s): [id number] cc: DUARTE VALDERRAMA ; Jose Miguel Campuzano D.O. [address] [address] Patient Name: DOMENIC GODINEZ MRN: [id number] date: 1995 Sex: F Assigned Patient Location: US Current Patient Location: US Accession/Order Number: [id number] Exam Date: 12/30/2023 10:52 Report Date: 12/30/2023 12:39 At the request of: JOSE MIGUEL CAMPUZANO Procedure: US OB BPP w non-stress EXAMINATION: US OB BPP w non-stress HISTORY: Circumvallate placenta O43.112 COMPARISON: No relevant comparison available. TECHNIQUE: Ultrasound biophysical profile was performed in the radiology department. FINDINGS: BREATHING MOVEMENTS: 2 GROSS BODY MOVEMENTS: 2 TONE: 2 QUALITATIVE AMNIOTIC FLUID VOLUME: 2 PRESENTATION: Cephalic HEART RATE: 136 AMNIOTIC FLUID VOLUME: 14.8 GESTATIONAL AGE: 22 weeks 3 days US/US OB BPP w non-stress IMPRESSION: Total biophysical profile score: 8/8 Electronically authenticated by: KIRK OATES Date: 12/30/2023 12:39 Dictated By: Kirk Oates M.D. Signed By: 12/31/23 1152 DD/ 1239 TD/TT: Sonar Subsystem Equipment Operator: Procedure Note Radiology, Radiologist, - 12/31/2023 [place] [address] Ultrasound Report Signed Patient: DOMENIC GODINEZ JMR#: [id number] : 1995Acct:[id number] Age/Sex: 28 / FADM Date: 12/30/23 Loc: US Attending Dr: Jose Miguel Campuzano D.O. Ordering Physician: Jose Miguel Campuzano D.O. Date of Service: 12/30/23 Procedure(s): US OB BPP w non-stress Accession Number(s): [id number] cc: DUARTE VALDERRAMA ; Jose Miguel Campuzano D.O. The [place] [id number] Patient Name: DOMENIC GODINEZ MRN: [id number] date: 1995 Sex: F Assigned Patient Location: Current Patient Location: Accession/Order Number: [id number] Exam Date: 12/30/2023 10:52 Report Date: 12/30/2023 12:39 At the request of: JOSE MIGUEL CAMPUZANO Procedure: US OB BPP w non-stress EXAMINATION: US OB BPP w non-stress HISTORY: Circumvallate placenta O43.112 COMPARISON: No relevant comparison available. TECHNIQUE: Ultrasound biophysical profile was performed in the radiology department. FINDINGS: BREATHING MOVEMENTS: 2 GROSS BODY MOVEMENTS: 2 TONE: 2 QUALITATIVE AMNIOTIC FLUID VOLUME: 2 PRESENTATION: Cephalic HEART RATE: 136 AMNIOTIC FLUID VOLUME: 14.8 GESTATIONAL AGE: 22 weeks 3 days US/US OB BPP w non-stress IMPRESSION: Total biophysical profile score: 8/8 Electronically authenticated by: KIRK OATES Date: 12/30/2023 12:39 Dictated By: Kirk Oates M.D. Signed By:12/31/23 1152 DD/ 1239 TD/TT: Sonar Subsystem Equipment Operator: Jose Miguel Campuzano DO [facility] Final Result documented in this encounter Visit Diagnoses Not on filedocumented in this encounter Care Teams P 3 Armament/Ordnance Ima Technician Relationship Specialty Start Date End Date Raudel Osborne MD [address] [place] [address] PCP - General Family Medicine 03/02/24 Jose Miguel Campuzano DO [address] [place] [address] Dr [place] [place] [address] [facility] documented as of this encounter
--- OUTSIDE RECORDS SUMMARY | 2024-12-15 12:08 | XMS_ITS | Encounter Summary ---
Author Organization [facility] Address [address] [place] [address] Care Team Providers Care Learning Services Coordinator Name Role Phone Raudel Osborne MD Primary Care Provider [phone] Edward Campuzano DO Unavailable Encounter Details Date Type Department Care Team (Late Contact Info) Description 01/28/2024 Abstract [facility] OB [address] [facility] [address] Edward Campuzano DO [address] [facility] [address] [place], [place] [address] Social History Tobacco Use Types Packs/Day Years [...] EDT Office Visit [facility] [address] [facility] [place] [address] Betsy Goodwin PA [address] [facility] [place] [address] documented as of this encounter Visit Diagnoses Not on filedocumented in this encounter Care Teams Learning Services Coordinator Relationship Specialty Start Date End Date Raudel Osborne MD [address] [facility] [place] [address] PCP - General Family Medicine 03/02/24 Edward Campuzano DO [address] [place] [address] PCP - [facility] 03/17/24 documented as of this encounter
--- OUTSIDE RECORDS SUMMARY | 2024-12-15 12:08 | XMS_ITS | Clinical Summary ---
Author Organization [facility] Address [address] [place] [address] Care Team Providers Care Drug Safety Associate Name Role Phone Unavailable Primary Care Provider Unavailabl e Allergies Active Allergy Reactions Criticality Noted Date Comments Adhesive Tape Itching 01/17/2022 Medications Vit-Fe Fumarate-FA ( 1+1 PO) Take by mouth Active omeprazole (PRILOSEC) 20 MG delayed release capsule Take 20 mg by mouth in the morning. 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 Anemia 01/18/2022 S/p Celestone 12/29 & 12/3001/17/2022 35 weeks gestation of 01/17/2022 Left sided abdominal pain 01/17/2022 Family History Medical History Relation Name Comments Depression Father High Blood Pressure Maternal Grandfather Diabetes Maternal Grandmother High Blood Pressure Maternal Grandmother Cancer Mother High Blood Pressure Mother Diabetes Paternal Grandfather Depression Paternal Grandmother Relation Name Status Comments Father Maternal Grandfather Maternal Grandmother Mother Paternal Grandfather Paternal Grandmother Social History Tobacco Use Types Packs/Day Years Used Date Smoking Tobacco: Never Assessed Tobacco Cessation:Counseling Given: Not Answered Comments No Sex and Gender Information Value Date Recorded Sex Assigned at Not on file Legal Sex Female 9:34 AM EDT Gender Identity Not on file Sexual Orientation Not on file Last Filed Vital Signs Vital Sign Reading Time Taken Comments Blood Pressure 107/67 01/18/2022 7:10 AM EDT Pulse 94 01/18/2022 7:10 AM EDT Temperature 36.8 C (98.3 F) 01/18/2022 7:10 AM EDT Respiratory Rate 16 01/18/2022 7:10 AM EDT Oxygen Saturation 95% 01/18/2022 7:10 AM EDT Inhaled Oxygen Concentration - - Weight - - Height - - Body Mass Index - - Plan of Treatment Health Maintenance Due Date Last Done Comments A1C test (Diabetic or Prediabetic) 2006 Depression Screen 2008 Varicella vaccine (1 of 2 - 13+ 2-dose series) 2009 HIV screen 08/31/2011 Hepatitis C screen 2014 DTaP/Tdap/Td vaccine (1 - Tdap) 08/31/2015 Hepatitis B vaccine (1 of 3 - 19+ 3-dose series) 08/31/2015 Pap smear 2017 COVID-19 Vaccine ( - 2023-2 5 season) 2024 Flu vaccine (Season Ended) 2025 Chlamydia/GC screen Discontinued 01/18/2022 HPV vaccine Aged Out No longer eligi ble based on patient's age to complete this topic Hepatitis A vaccine Aged Out No longe r eligible based on patient's age to complete this topic Hib vaccine Aged Out No longer eligi ble based on patient's age to complete this topic Meningococcal (ACWY) vaccine Aged Out No longer eligible based on patient's age to complete this topic Meningococcal B vaccine Aged Out No l onger eligible based on patient's age to complete this topic Pneumococcal 0-49 years Vaccine Aged Out No longer eligible based on patient's age to complete this topic Polio vaccine Aged Out No longer elig ible based on patient's age to complete this topic Procedures Procedure Name Priority Date/Time Associated Diagnosis Comments C.TRACHOMATIS N.GONORRHOEAE DNA [facility] Label Print 01/18/2022 3:51 PM EDT from Last 3 Months or Most Recently Relevant to Health Maintenance Results * C.trachomatis N.gonorrhoeae DNA (01/18/2022 3:51 PM EDT) Specimen Description .CERVIX 01/18/2022 3:51 PM EDT [facility] C. trachomatis DNA NEGATIVE NEGATIVE 01/18/2022 3:51 PM EDT [facility] Comment: CHLAMYDIA TRACHOMATIS DNA not detected by nucleic acid amplification. This test is intended for medical purposes only and is not valid for the evaluation of suspected sexual abuse or for other forensic purposes. In certain contexts, culture may be required to meet applicable laws and regulations for diagnosis of C. trachomatis and N. gonorrhoeae infections. Per 2014 CDC recommendations, this test does not include confirmation of positive results by an alternative nucleic acid target. N. gonorrhoeae DNA NEGATIVE NEGATIVE 01/18/2022 3:51 PM EDT [facility] Comment: NEISSERIA GONORRHOEAE DNA not detected by nucleic acid amplification. This test is intended for medical purposes only and is not valid for the evaluation of suspected sexual abuse or for other forensic purposes. In certain contexts, culture may be required to meet applicable laws and regulations for diagnosis of C. trachomatis and N. gonorrhoeae infections. Per 2014 CDC recommendations, this test does not include confirmation of positive results by an alternative nucleic acid target. CERVICAL SWAB / Unknown 01/18/2022 3:51 PM EDT 01/18/2022 3:51 PM EDT Sharath Manzanares DO MICROBIOLOGY - GENERAL ORDERAB LES Final Result Performing Organization Address City/State/[facility] Co de Phone Number [facility] [address] [place] [id number] [phone] from Last 3 Months or Most Recently Relevant to Health Maintenance Insurance [facility] Advance Directives * Full Code (Latest Code Status on File) Date Activated Date Inactivated Comments 01/17/2022 4:57 PM 01/18/2022 6:05 PM
--- OUTSIDE RECORDS SUMMARY | 2024-12-15 12:08 | XMS_ITS | Encounter Summary ---
Author Organization [facility] Address [address] [place] [address] Care Team Providers Care Helicopter Officer Name Role Phone Raudel Osborne MD Primary Care Provider [phone] Jose Miguel Campuzano DO Unavailable Encounter Details Date Type Department Care Team (Late Contact Info) Description 07/19/2023 Clinisync Result Encounter [facility]S External Department Unsolicited Jose Miguel Campuzano, DO [address] [facility] [address] Sukumar Noyola, [facility]11 Social History Tobacco Use Types Packs/Day Years [...] EDT Office Visit [facility] BCP OB [address] [facility] [place] [phone] Betsy Goodwin PA [address] [place] [id number] [phone] (work) documented as of this encounter Procedures Procedure Name Priority Date/Time Associated Diagnosis Comments US OB TRANSVAGINAL 07/19/2023 9: 02 AM EST documented in this encounter Results * US OB TRANSVAGINAL (07/19/2023 9:02 AM EST) Anatomical Region Laterality Modality Other 07/19/2023 9:02 AM EST Narrative 07/19/2023 9:05 AM EST [address] [address] Ultrasound Report Signed Patient: DOMENIC GODINEZ MR#: [id number] : 1995 Acct:[id number] Age/Sex: 27 / F ADM Date: 07/19/23 Loc: [facility] Attending Dr: Jose Miguel Campuzano D.O. Ordering Physician: Jose Miguel Campuzano D.O. Date of Service: 07/19/23 Procedure(s): US OB transvaginal Accession Number(s): [id number] cc: DUARTE VALDERRAMA ; Jose Miguel Campuzano D.O. [address] [address] Patient Name: DOMENIC GODINEZ MRN: [id number] date: 1995 Sex: F Assigned Patient Location: [facility] Current Patient Location: [facility] Accession/Order Number: [id number] Exam Date: 07/19/2023 08:30 Report Date: 07/19/2023 09:02 At the request of: JOSE MIGUEL CAMPUZANO Procedure: US OB transvaginal EXAMINATION: US OB transvaginal HISTORY: MISSED MENSES COMPARISON: Ultrasound OB transvaginal 06/29/2023 FINDINGS: GESTATIONAL SAC: Present and normal appearing. YOLK SAC: Present and normal appearing. POLE: Present and normal appearing. CARDIAC: Present. UTERUS: Small subchorionic hematoma, 1.5 cm. OVARIES: Right: Normal. Left: Normal. CERVIX: 3.5 cm in length and closed. CUL-DE-SAC: Normal. OTHER: None. AGE BY LMP: 9 weeks 0 days NOVA BY LMP: 02/21/2024 AGE BY US CRL: 8 weeks 3 days NOVA BY US CRL: 02/25/2024 US/US OB transvaginal IMPRESSION: 1. Single live intrauterine . Electronically authenticated by: JOSUE KEBEDE Date: 07/19/2023 09:02 Dictated By: Josue Kebede M.D. Signed By: 07/19/23904 DD/ 1 TD/TT: Social Work Manager: Procedure Note Radiology, Radiologist, MD - 07/19/2023 [place] [address] Ultrasound Report Signed Patient: DOMENIC GODINEZ JMR#: [id number] : 1995Acct:[id number] Age/Sex: 27 / FADM Date: 07/19/23 Loc: [facility] Attending Dr: Jose Miguel Campuzano D.O. Ordering Physician: Jose Miguel Campuzano D.O. Date of Service: 07/19/23 Procedure(s): US OB transvaginal Accession Number(s): [id number] cc: DUARTE VALDERRAMA ; Jose Miguel Campuzano D.O. The [place] [id number] Patient Name: DOMENIC GODINEZ MRN: [id number] date: 1995 Sex: F Assigned Patient Location: [facility] Current Patient Location: [facility] Accession/Order Number: [id number] Exam Date: 07/19/2023 08:30 Report Date: 07/19/2023 09:02 At the request of: JOSE MIGUEL CAMPUZANO Procedure: US OB transvaginal EXAMINATION: US OB transvaginal HISTORY: MISSED MENSES COMPARISON: Ultrasound OB transvaginal 06/29/2023 FINDINGS: GESTATIONAL SAC: Present and normal appearing. YOLK SAC: Present and normal appearing. POLE: Present and normal appearing. CARDIAC: Present. UTERUS: Small subchorionic hematoma, 1.5 cm. OVARIES: Right: Normal. Left: Normal. CERVIX: 3.5 cm in length and closed. CUL-DE-SAC: Normal. OTHER: None. AGE BY LMP: 9 weeks 0 days NOVA BY LMP: 02/21/2024 AGE BY US CRL: 8 weeks 3 days NOVA BY US CRL: 02/25/2024 US/US OB transvaginal IMPRESSION: 1. Single live intrauterine . Electronically authenticated by: JOSUE KEBEDE Date: 07/19/2023 09:02 Dictated By: Josue Kebede M.D. Signed By:07/19/23904 DD/ 1 TD/TT: Social Work Manager: us Jose Miguel Campuzano DO [facility] Final Result documented in this encounter Visit Diagnoses Not on filedocumented in this encounter Care Teams Helicopter Officer Relationship Specialty Start Date End Date Raudel Osborne MD [address] [facility] [place] [address] PCP - General Family Medicine 03/02/24 Jose Miguel Campuzano DO [address] [place] [address] Dr Sukumar [place] [address] PCP - [facility] 03/17/24 documented as of this encounter
--- OUTSIDE RECORDS SUMMARY | 2024-12-15 12:08 | XMS_ITS | Encounter Summary ---
Author Organization [facility] Address [address] [place] [address] Care Team Providers Care Ediphone Operator Name Role Phone Raudel Osborne MD Primary Care Provider [phone] Jose Miguel Campuzano DO Unavailable Encounter Details Date Type Department Care Team (Late Contact Info) Description 08/20/2023 Clinisync Result Encounter [facility]OMS External Department Unsolicited Jose Miguel Campuzano, DO [address] [facility] [address] Sukumar Noyola, [id number] Social History Tobacco Use Types Packs/Day Years [...] Visit [facility] BCP OB 102 [facility] [place] [phone] Betsy Goodwin PA [address] [place] [phone] (work) documented as of this encounter Procedures Procedure Name Priority Date/Time Associated Diagnosis Comments US OB CERVICAL LENGTH 08/20/2023 3:48 PM EST documented in this encounter Results * US OB CERVICAL LENGTH (08/20/2023 3:48 PM EST) Anatomical Region Laterality Modality Other 08/20/2023 3:48 PM EST Narrative 08/20/2023 3:50 PM EST [place] [id number] Ultrasound Report Signed Patient: DOMENIC GODINEZ MR#: [id number] : 1995 Acct:[id number] Age/Sex: 27 / F ADM Date: 08/20/23 Loc: [facility] Attending Dr: Jose Miguel Campuzano D.O. Ordering Physician: Jose Miguel Campuzano D.O. Date of Service: 08/20/23 Procedure(s): US OB cervical length Accession Number(s): [id number] cc: DUARTE VALDERRAMA ; Jose Miguel Campuzano D.O. [address] [address] Patient Name: DOMENIC GODINEZ MRN: [id number] date: 1995 Sex: F Assigned Patient Location: [facility] Current Patient Location: [facility] Accession/Order Number: [id number] Exam Date: 08/20/2023 14:24 Report Date: 08/20/2023 15:48 At the request of: JOSE MIGUEL CAMPUZANO Procedure: US OB cervical length EXAMINATION: US OB cervical length HISTORY: VAGINAL DISCHARGE, HEMATURIA COMPARISON: No relevant comparison available. FINDINGS: The cervix is closed measuring 3.8 cm in length Heart rate: 150 beats minute Gestational age: 30 weeks 4 days US/US OB cervical length IMPRESSION: Closed cervix measuring 3.8 cm Electronically authenticated by: KIRK OATES Date: 08/20/2023 15:48 Dictated By: Kirk Oates M.D. Signed By: 08/20/23 1550 DD/ 1547 TD/TT: French Binder: Procedure Note Radiology, Radiologist, - 08/20/[address] [address] Ultrasound Report Signed Patient: DOMENIC GODINEZ JMR#: [id number] : 1995Acct:[id number] Age/Sex: 27 / FADM Date: 08/20/23 Loc: [facility] Attending Dr: Jose Miguel Campuzano D.O. Ordering Physician: Jose Migeul Campuzano D.O. Date of Service: 08/20/23 Procedure(s): US OB cervical length Accession Number(s): [id number] cc: DUARTE VALDERRAMA ; Jose Miguel Campuzano D.O. The [address] [id number] Patient Name: DOMENIC GODINEZ MRN: [id number] date: 1995 Sex: F Assigned Patient Location: [facility] Current Patient Location: [facility] Accession/Order Number: [id number] Exam Date: 08/20/2023 14:24 Report Date: 08/20/2023 15:48 At the request of: JOSE MIGUEL CAMPUZANO Procedure: US OB cervical length EXAMINATION: US OB cervical length HISTORY: VAGINAL DISCHARGE, HEMATURIA COMPARISON: No relevant comparison available. FINDINGS: The cervix is closed measuring 3.8 cm in length Heart rate: 150 beats minute Gestational age: 30 weeks 4 days US/US OB cervical length IMPRESSION: Closed cervix measuring 3.8 cm Electronically authenticated by: KIRK OATES Date: 08/20/2023 15:48 Dictated By: Kirk Oates M.D. Signed By:08/20/23 155 DD/ 47 TD/TT: French Binder: us Jose Miguel Campuzano DO [facility] Final Result documented in this encounter Visit Diagnoses Not on filedocumented in this encounter Care Teams Ediphone Operator Relationship Specialty Start Date End Date Raudel Osborne MD [address] [place] [address] PCP - General Family Medicine 03/02/24 Jose Miguel Campuzano DO [address] [place] [address] Dr Sukumar Griffin [place] [phone] PCP - [facility] 03/17/24 documented as of this encounter
--- OUTSIDE RECORDS SUMMARY | 2024-12-15 12:08 | XMS_ITS | Encounter Summary ---
Author Organization [facility] Address [address] [place] [place] [address] Care Team Providers Care Feed In Worker Name Role Phone Raudel Osborne MD Primary Care Provider [phone] Jose Miguel Campuzano DO Unavailable Encounter Details Date Type Department Care Team (Late Contact Info) Description 08/06/2023 Clinisync Result Encounter NOMS External Department Unsolicited Jose Miguel Campuzano, DO [address] [facility] [address] Sukumar [place]oyola, [facility]11 Social History Tobacco Use Types Packs/Day Years [...] Office Visit [facility] BCP OB 102 [facility] [place] [phone] Betsy Goodwin PA [address] [place] [id number] [phone] (work) documented as of this encounter Procedures Procedure Name Priority Date/Time Associated Diagnosis Comments US OB TRANSVAGINAL 08/06/2023 11 :31 AM EST documented in this encounter Results * US OB TRANSVAGINAL (08/06/2023 11:31 AM EST) Anatomical Region Laterality Modality Other 08/06/2023 11:3 1 AM EST Narrative 08/06/2023 11:33 AM EST [address] [address] Ultrasound Report Signed Patient: DOMENIC GODINEZ MR#: [id number] : 1995 Acct:[id number] Age/Sex: 27 / F ADM Date: 08/06/23 Loc: US Attending Dr: Jose Miguel Campuzano D.O. Ordering Physician: Jose Miguel Campuzano D.O. Date of Service: 08/06/23 Procedure(s): US OB transvaginal Accession Number(s): [id number] cc: DUARTE VALDERRAMA ; Jose Miguel Campuzano D.O. [address] [address] Patient Name: DOMENIC GODINEZ MRN: [id number] date: 1995 Sex: F Assigned Patient Location: US Current Patient Location: US Accession/Order Number: [id number] Exam Date: 08/06/2023 11:00 Report Date: 08/06/2023 11:31 At the request of: JOSE MIGUEL CAMPUZANO Procedure: US OB transvaginal EXAMINATION: US OB transvaginal HISTORY: subchorionic hematoma in first trimester O41.8X10 COMPARISON: Ultrasound OB transvaginal 07/19/2023 TECHNIQUE: Transvaginal sonographic examination was performed for obstetrical and evaluation. FINDINGS: Number: 1 Heart Rate: 164.6 bpm Cervix Length: 4.0 cm, closed. Other: None GESTATIONAL AGE: Age by EDC: 11 weeks 4 days NOVA by EDC: 02/21/2024 US/US OB transvaginal IMPRESSION: 1. Single live intrauterine . 2. No subchorionic hematoma. Electronically authenticated by: JOSUE KEBEDE Date: 08/06/2023 11:31 Dictated By: Josue Kebede M.D. Signed By: 08/06/23 1133 DD/ 1131 TD/TT: Investment Advisor: Procedure Note Radiology, Radiologist, MD - 08/21/2023 [place] [address] Ultrasound Report Signed Patient: DOMENIC GODINEZ R#: [id number] : 1995Acct:[id number] Age/Sex: 27 / FADM Date: 08/06/23 Loc: US Attending Dr: Jose Miguel Campuzano D.O. Ordering Physician: Jose Miguel Campuzano D.O. Date of Service: 08/06/23 Procedure(s): US OB transvaginal Accession Number(s): [id number] cc: DUARTE VALDERRAMA ; Jose Miguel Campuzano D.O. The [place] [address] Patient Name: DOMENIC GODINEZ MRN: [id number] date: 1995 Sex: F Assigned Patient Location: US Current Patient Location: Accession/Order Number: [id number] Exam Date: 08/06/2023 11:00 Report Date: 08/06/2023 11:31 At the request of: JOSE MIGUEL CAMPUZANO Procedure: US OB transvaginal EXAMINATION: US OB transvaginal HISTORY: subchorionic hematoma in first trimester O41.8X10 COMPARISON: Ultrasound OB transvaginal 07/19/2023 TECHNIQUE: Transvaginal sonographic examination was performed forobstetrical and evaluation. FINDINGS: Number: 1 Heart Rate: 164.6 bpm Cervix Length: 4.0 cm, closed. Other: None GESTATIONAL AGE: Age by EDC: 11 weeks 4 days NOVA by EDC: 02/21/2024 US/US OB transvaginal IMPRESSION: 1. Single live intrauterine . 2. No subchorionic hematoma. Electronically authenticated by: JOSUE KEBEDE Date: 08/06/2023 11:31 Dictated By: Josue Kebede M.D. Signed By:08/06/23 1133 DD/ 1131 TD/TT: Investment Advisor: Jose Miguel Campuzano DO [facility] Final Result documented in this encounter Visit Diagnoses Not on filedocumented in this encounter Care Teams Feed In Worker Relationship Specialty Start Date End Date Raudel Osborne MD [address] [place] [address] PCP - General Family Medicine 03/02/24 Jose Miguel Campuzano DO [address] [place] [address] [place] [address] PCP - [facility] 03/17/24 documented as of this encounter
--- OUTSIDE RECORDS SUMMARY | 2024-12-15 12:08 | XMS_ITS | Encounter Summary ---
Author Organization [facility] Address [address] [place] [address] Care Team Providers Care Manager Internet Name Role Phone Raudel Osborne MD Primary Care Provider [phone] Jose Miguel Campuzano DO Unavailable Encounter Details Date Type Department Care Team (Late st Contact Info) Description 01/06/2024 Clinisync Result Encounter NOMS External Department Unsolicited Jose Miguel Campuzano, DO [address] [facility] Sukumar [place] [phone] Social History Tobacco Use Types Packs/Day Years [...] Miscellaneous Notes * Result Encounter Note - rBianna Roldan LPN - 01/06/2024 1:00 PM EDT Added to flowsheet documented in this encounter Plan of Treatment Upcoming Encounters Date Type Department Care Team (Late st Contact Info) Description 12/31/2024 9:30 AM EDT Office Visit [facility] BCP OB [address] [facility] [place] [address] Betsy Goodwin PA [address] [facility] [address] [place], [place] [address] documented as of this encounter Procedures Procedure Name Priority Date/Time Associated Diagnosis Comments US OB UMBILICAL ARTERY DOPPLER 01/06/2024 12:56 PM EDT documented in this encounter Results * US OB UMBILICAL ARTERY DOPPLER (01/06/2024 12:56 PM EDT) Anatomical Region Laterality Modality Radiographic Ada ging 01/06/2024 12:5 6 PM EDT Narrative 01/06/2024 12:59 [place] [address] Ultrasound Report Signed Patient: SANDY GODINEZ MR#: [id number] : 1995 Acct:[id number] Age/Sex: 28 / F ADM Date: 01/06/24 Loc: US Attending Dr: Jose Miguel Campuzano D.O. Ordering Physician: Jose Miguel Campuzano D.O. Date of Service: 01/06/24 Procedure(s): US OB umbilical artery Accession Number(s): [id number] cc: DUARTE VALDERRAMA ; Jose Miguel Campuzano D.O. [address] [address] Patient Name: SANDY GODINEZ MRN: [id number] date: 1995 Sex: F Assigned Patient Location: [facility] Current Patient Location: US Accession/Order Number: [id number] Exam Date: 01/06/2024 11:41 Report Date: 01/06/2024 12:56 At the request of: JOSE MIGUEL CAMPUZANO Procedure: US OB umbilical artery EXAMINATION: US OB umbilical artery HISTORY: SINGLE VESSEL OF UMBILICAL CORD Q27.0 COMPARISON: No relevant comparison available. TECHNIQUE: Duplex Doppler evaluation of the umbilical arteries. FINDINGS: position: Cephalic presentation, longitudinal lie Amniotic fluid volume: 21.7 cm, normal Largest fluid pocket: 6 cm Heart rate: 137 bpm Proximal umbilical artery PSV/EDV: 159/62 cm/s, resistive index 0.61. Ratio 2.6 Mid umbilical artery PSV/EDV: 86/48 cm/s. Resistive index 0.44. Ratio 1.8 Distal umbilical artery PSV/EDV: 97/51 cm/s, resistive index 0.4. Ratio 1.9 Forefoot identified throughout diastole Clinical age: 33 weeks 3 days US/US OB umbilical artery IMPRESSION: Normal exam. Class 0 Umbilical Artery: Class 0 = Normal umbilical [...] weeks. Electronically authenticated by: KIRK OATES Date: 01/06/2024 12:56 Dictated By: Kirk Oates M.D. Signed By: 01/06/24 1259 DD/ 1256 TD/TT: Soap Chipper: Procedure Note Radiology, Radiologist, MD - 01/06/2024 [place] [address] Ultrasound Report Signed Patient: SANDY GODINEZ R#: [id number] : 1995Acct:[id number] Age/Sex: Date: 01/06/24 Loc: US Attending Dr: Jose Miguel Campuzano D.O. Ordering Physician: Jose Miguel Campuzano D.O. Date of Service: 01/06/24 Procedure(s): US OB umbilical artery Accession Number(s): [id number] cc: DUARTE VALDERRAMA ; Jose Miguel Campuzano D.O. The [place] [address] Patient Name: SANDY GODINEZ MRN: [id number] date: 1995 Sex: F Assigned Patient Location: [facility] Current Patient Location: US Accession/Order Number: [id number] Exam Date: 01/06/2024 11:41 Report Date: 01/06/2024 12:56 At the request of: JOSE MIGUEL CAMPUZANO Procedure: US OB umbilical artery EXAMINATION: US OB umbilical artery HISTORY: SINGLE VESSEL OF UMBILICAL CORD Q27.0 COMPARISON: No relevant comparison available. TECHNIQUE: Duplex Doppler evaluation of the umbilical arteries. FINDINGS: position: Cephalic presentation, longitudinal lie Amniotic fluid volume: 21.7 cm, normal Largest fluid pocket: 6 cm Heart rate: 137 bpm Proximal umbilical artery PSV/EDV: 159/62 cm/s, resistive index 0.61.Ratio 2.6 Mid umbilical artery PSV/EDV: 86/48 cm/s. Resistive index 0.44. Ratio 1.8 Distal umbilical artery PSV/EDV: 97/51 cm/s, resistive index 0.4. Ratio1.9 Forefoot identified throughout diastole Clinical age: 33 weeks 3 days US/US OB umbilical artery IMPRESSION: Normal exam. Class 0 Umbilical Artery: Class 0 = Normal umbilical [...] weeks. Electronically authenticated by: KIRK OATES Date: 01/06/2024 12:56 Dictated By: Kirk Oates M.D. Signed By:01/06/24 1259 DD/ 1256 TD/TT: Soap Chipper: Jose Miguel Campuzano DO IMG XR PROCEDURES Final Result documented in this encounter Visit Diagnoses Not on filedocumented in this encounter Care Teams Manager Internet Relationship Specialty Start Date End Date Raudel Osborne MD [address] [place] [address] PCP - General Family Medicine 03/02/24 Jose Miguel Campuzano DO [address] [place] [address] Dr Sukumar [place] [address] PCP - [facility] 03/17/24 documented as of this encounter
--- OUTSIDE RECORDS SUMMARY | 2024-12-15 12:08 | XMS_ITS | Clinical Summary ---
Author Organization [facility] Address [address] [place] [address] Care Team Providers Care Percussion Instructor Name Role Phone Rebecca Garcia CNP Primary Care Provider [phone] Social History Tobacco Use Types Packs/Day Years Used Date Smoking Tobacco: Never Assessed Comments Unknown Sex and Gender Information Value Date Recorded Sex Assigned at Not on file Legal Sex Female 2:02 PM EDT Gender Identity Female 03/05/2020 2:14 PM EDT Sexual Orientation Straight 03/05/2020 2: 14 PM EDT Plan of Treatment Health Maintenance Due Date Last Done Comments Tetanus: Every 10yrs 1995 Wellness Visit 08/31/1999 Depression Screening/Follow- Up (PHQ-2/9) 2008 HIV Screening 08/31/2011 Hepatitis C Screening 2014 Pap Smear 2017 COVID-19 Vaccine (2023-2 5 season) 2024 Influenza Vaccine (Season Ended) 2025 Pneumococcal Vaccine: Ped or At-Risk Aged Out No longer eligible b ased on patient's age to complete this topic Insurance [employer] Care Teams Percussion Instructor Relationship Specialty Start Date End Date Rebecca Garcia CNP [address] [place] [address] PCP - General Nurse Practitioner 03/05/20
--- OUTSIDE RECORDS SUMMARY | 2024-12-15 12:08 | XMS_ITS | Encounter Summary ---
Author Organization [facility] Address [address] [place] [address] Care Team Providers Care Automotive Software Engineer Name Role Phone Raudel Osborne MD Primary Care Provider [phone] Jose Miguel Campuzano DO Unavailable Encounter Details Date Type Department Care Team (Late Contact Info) Description 01/27/2024 Clinisync Result Encounter NOMS External Department Unsolicited Jose Miguel Campuzano, DO [address] [facility] [address] Sukumar Noyola, [facility]11 Social History Tobacco Use Types [...] EDT Office Visit [facility] BCP OB [address] [facility] [place] [phone] Betsy Goodwin PA [address] [place] [place] [id number] documented as of this encounter Procedures Procedure Name Priority Date/Time Associated Diagnosis Comments [facility] BOX TEST SENT OUT Routine 01/27/2024 2:35 PM EDT US OB UMBILICAL ARTERY DOPPLER 01/27/2024 1:23 PM EDT documented in this encounter Results * [facility] BOX TEST SENT OUT (01/27/2024 2:35 PM EDT) BOX TEST SENT OUT [facility] Comment:See Scanned Report. 01/27/2024 2:35 PM EDT 01/28/2024 6:45 AM EDT Narrative [facility] - 02/11/2024 8:06 AM EDT GROUP B STREP SENT TO LAB [facility] us Jose Miguel Campuzano DO [facility] Final Result [facility] * US OB UMBILICAL ARTERY DOPPLER (01/27/2024 1:23 PM EDT) Anatomical Region Laterality Modality Radiographic Ada ging 01/27/2024 1:23 PM EDT Narrative 01/27/2024 2:00 PM EDT [address] [address] Ultrasound Report Signed Patient: SANDY GODINEZ MR#: [id number] : 1995 Acct:[id number] Age/Sex: 28 / F ADM Date: 01/27/24 Loc: US Attending Dr: Jose Miguel Campuzano D.O. Ordering Physician: Jose Miguel Campuzano D.O. Date of Service: 01/27/24 Procedure(s): US OB umbilical artery Accession Number(s): [id number] cc: DUARTE VALDERRAMA ; Jose Miguel Campuzano D.O. [address] [address] Patient Name: SANDY GODINEZ MRN: [facility]:[id number] date: 1995 Sex: F Assigned Patient Location: [facility] Current Patient Location: Accession/Order Number: [id number] Exam Date: 01/27/2024 11:00 Report Date: 01/27/2024 13:23 At the request of: JOSE MIGUEL CAMPUZANO Procedure: US OB umbilical artery EXAMINATION: US OB umbilical artery HISTORY: Two vessel umbilical cord COMPARISON: No relevant comparison available. TECHNIQUE: Duplex Doppler evaluation of the umbilical arteries. FINDINGS: Umbilical arteries: 1 position: Cephalic presentation, longitudinal lie Heart rate: 160 bpm Proximal umbilical artery: 82/40 cm/s. Resistive index 0.51. Ratio 2.0 Mid umbilical artery: 110/56 cm/s. Resistive index 0.49. Ratio 2.0 Distal umbilical artery: 69/36 cm/s. Resistive index 0.48. Ratio 1.9 Forward flow identified throughout diastole Clinical age: 36 weeks 3 days US/US OB umbilical artery [...] weeks. Electronically authenticated by: KIRK OATES Date: 01/27/2024 13:23 Dictated By: Kirk Oates M.D. Signed By: 01/27/24 1400 DD/ 1323 TD/TT: Sales Research Analyst: Procedure Note Radiology, Radiologist, MD - 01/27/2024 [place] [address] Ultrasound Report Signed Patient: SANDY GODINEZ R#: [id number] : 1995Acct:[id number] Age/Sex: 28 / FADM Date: 01/27/24 Loc: US Attending Dr: Jose Miguel Campuzano D.O. Ordering Physician: Jose Miguel Campuzano D.O. Date of Service: 01/27/24 Procedure(s): US OB umbilical artery Accession Number(s): [id number] cc: DUARTE VALDERRAMA ; Jose Miguel Campuzano D.O. The [place] [address] Patient Name: SANDY GODINEZ MRN: [id number] date: 1995 Sex: F Assigned Patient Location: [facility] Current Patient Location: Accession/Order Number: [id number] Exam Date: 01/27/2024 11:00 Report Date: 01/27/2024 13:23 At the request of: JOSE MIGUEL CAMPUZANO Procedure: US OB umbilical artery EXAMINATION: US OB umbilical artery HISTORY: Two vessel umbilical cord COMPARISON: No relevant comparison available. TECHNIQUE: Duplex Doppler evaluation of the umbilical arteries. FINDINGS: Umbilical arteries: 1 position: Cephalic presentation, longitudinal lie Heart rate: 160 bpm Proximal umbilical artery: 82/40 cm/s. Resistive index 0.51. Ratio 2.0 Mid umbilical artery: 110/56 cm/s. Resistive index 0.49. Ratio 2.0 Distal umbilical artery: 69/36 cm/s. Resistive index 0.48. Ratio 1.9 Forward flow identified throughout diastole Clinical age: 36 weeks 3 days US/US OB umbilical artery [...] weeks. Electronically authenticated by: KIRK OATES Date: 01/27/2024 13:23 Dictated By: Kirk Oates M.D. Signed By:01/27/24 1400 DD/ 1323 TD/TT: Sales Research Analyst: Jose Miguel Campuzano DO IMG XR PROCEDURES Final Result documented in this encounter Visit Diagnoses Not on filedocumented in this encounter Care Teams Automotive Software Engineer Relationship Specialty Start Date End Date Raudel Osborne MD [facility] [place] [address] PCP - General Family Medicine 03/02/24 Jose Miguel Campuzano DO [address] [place] [address] Dr Sukumar [place] [address] PCP - [facility] 03/17/24 documented as of this encounter
--- OUTSIDE RECORDS SUMMARY | 2024-12-15 12:08 | XMS_ITS | Encounter Summary ---
Author Organization [facility] Address [address] [place] [address] Care Team Providers Care Directional Survey Drafter Name Role Phone Raudel Osborne MD Primary Care Provider [phone] Jose Miguel Campuzano DO Unavailable Encounter Details Date Type Department Care Team (Late Contact Info) Description 01/13/2024 Clinisync Result Encounter [facility]S External Department Unsolicited Jose Miguel Campuzano, DO [address] [facility] [address] Sukumar Noyola, [id number] Social History Tobacco Use Types Packs/Day Years [...] Office Visit [facility] BCP OB [address] [facility] [place] [phone] Betsy Goodwin PA [address] [place] [id number] [phone] (work) documented as of this encounter Procedures Procedure Name Priority Date/Time Associated Diagnosis Comments US OB BPP W NON-STRESS 01/13/2024 12:00 PM EDT documented in this encounter Results * US OB BPP W NON-STRESS (01/13/2024 12:00 PM EDT) Anatomical Region Laterality Modality Other 01/13/2024 12:0 0 PM EDT Narrative 01/13/2024 12:02 PM EDT [place] [id number] Ultrasound Report Signed Patient: DOMENIC GODINEZ MR#: [id number] : 1995 Acct:[id number] Age/Sex: 28 / F ADM Date: 01/13/24 Loc: [facility] 250-[address]: Jose Miguel Campuzano D.O. Ordering Physician: Jose Miguel Campuzano D.O. Date of Service: 01/13/24 Procedure(s): US OB BPP w non-stress Accession Number(s): [id number] cc: DUARTE VALDERRAMA ; Jose Miguel Campuzano D.O. 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 BREATHING MOVEMENTS: 2 GROSS BODY MOVEMENTS: 2 TONE: 2 QUALITATIVE AMNIOTIC FLUID VOLUME: 2 PRESENTATION: CEPHALIC HEART RATE: 152.54 bpm AMNIOTIC FLUID VOLUME: 16.55 cm GESTATIONAL AGE: 34 weeks 3 days US/US OB BPP w non-stress IMPRESSION: Total biophysical profile score: 8 Electronically authenticated by: JOSUE KEBEDE Date: 01/13/2024 12:00 Dictated By: Josue Kebede M.D. Signed By: 01/13/24 1202 DD/ 1200 TD/TT: Functional Mental Disability Teacher: Procedure Note Radiology, Radiologist, MD - 01/13/2024 [place] [address] Ultrasound Report Signed Patient: DOMENIC GODINEZ JMR#: [id number] : 1995Acct:[id number] Age/Sex: 28 FADM Date: 01/13/24 Loc: [facility] 250-[address]: Jose Miguel Campuzano D.O. Ordering Physician: Jose Miguel Campuzano D.O. Date of Service: 01/13/24 Procedure(s): US OB BPP w non-stress Accession Number(s): [id number] cc: DUARTE VALDERRAMA ; Jose Miguel Campuzano D.O. 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 BREATHING MOVEMENTS: 2 GROSS BODY MOVEMENTS: 2 TONE: 2 QUALITATIVE AMNIOTIC FLUID VOLUME: 2 PRESENTATION: CEPHALIC HEART RATE: 152.54 bpm AMNIOTIC FLUID VOLUME: 16.55 cm GESTATIONAL AGE: 34 weeks 3 days US/US OB BPP w non-stress IMPRESSION: Total biophysical profile score: 8 Electronically authenticated by: JOSUE KEBEDE Date: 01/13/2024 12:00 Dictated By: Josue Kebede M.D. Signed By:01/13/24 1202 DD/ 1200 TD/TT: Functional Mental Disability Teacher: Jose Miguel Campuzano DO [facility] IMAG[facility] Final Result documented in this encounter Visit Diagnoses Not on filedocumented in this encounter Care Teams Directional Survey Drafter Relationship Specialty Start Date End Date Raudel Osborne MD [address] [facility] [place] [address] PCP - General Family Medicine 03/02/24 Jose Miguel Campuzano DO [address] [place] [address] [place] [address] PCP - [facility] 03/17/24 documented as of this encounter
--- OUTSIDE RECORDS SUMMARY | 2024-12-15 12:08 | XMS_ITS | Encounter Summary ---
Author Organization [facility] Address [address] [place] [address] Care Team Providers Care Fuel Assembler Name Role Phone Raudel Osborne MD Primary Care Provider [phone] Jose Miguel Campuzano DO Unavailable Encounter Details Date Type Department Care Team (Late Contact Info) Description 01/27/2024 Clinisync Result Encounter [facility]S External Department Unsolicited Jose Miguel Campuzano, DO [address] [facility] [address] Sukumar Noyola, [facility]11 Social History Tobacco Use Types Packs/Day [...] OB [address] [facility] [place] [phone] Betsy Goodwin PA [address] [place] [id number] [phone] (work) documented as of this encounter Procedures Procedure Name Priority Date/Time Associated Diagnosis Comments US OB BPP W NON-STRESS 01/27/2024 11:43 AM EDT documented in this encounter Results * US OB BPP W NON-STRESS (01/27/2024 11:43 AM EDT) Anatomical Region Laterality Modality Other 01/27/2024 11:4 3 AM EDT Narrative 01/27/2024 11:46 [place] [address] Ultrasound Report Signed Patient: DOMENIC GODINEZ MR#: [id number] : 1995 Acct:[id number] Age/Sex: 28 / F ADM Date: 01/27/24 Loc: [facility] 252-[address]: Jose Miguel Campuzano D.O. Ordering Physician: Jose Miguel Campuzano D.O. Date of Service: 01/27/24 Procedure(s): US OB BPP w non-stress Accession Number(s): [id number] cc: DUARTE VALDERRAMA ; Jose Miguel Campuzano D.O. [address] [address] Patient Name: DOMENIC GODINEZ MRN: [id number] date: 1995 Sex: F Assigned Patient Location: [facility] Current Patient Location: [facility] Accession/Order Number: [id number] Exam Date: 01/27/2024 11:00 Report Date: 01/27/2024 11:43 At the request of: JOSE MIGUEL CAMPUZANO [...] FLUID VOLUME: 2 PRESENTATION: CEPHALIC HEART RATE: 145.16 bpm AMNIOTIC FLUID VOLUME: 17.3 cm GESTATIONAL AGE: 36 weeks 3 days US/US OB BPP w non-stress IMPRESSION: Total biophysical profile score: 8 Electronically authenticated by: KIRK OATES Date: 01/27/2024 11:43 Dictated By: Kirk Oates M.D. Signed By: 01/27/24 1146 DD/ 1143 TD/TT: Well Surveying Engineer: Procedure Note Radiology, Radiologist, MD - 01/27/2024 [place] [address] Ultrasound Report Signed Patient: DOMENIC GODINEZ JMR#: [id number] : 1995Acct:[id number] Age/Sex: 28 / FADM Date: 01/27/24 Loc: [facility] 252-[address]: Jose Miguel Campuzano D.O. Ordering Physician: Jose Miguel Campuzano D.O. Date of Service: 01/27/24 Procedure(s): US OB BPP w non-stress Accession Number(s): [id number] cc: DUARTE VALDERRAMA ; Jose Miguel Campuzano D.O. The [place] [address] Patient Name: DOMENIC GODINEZ MRN: [id number] date: 1995 Sex: F Assigned Patient Location: [facility] Current Patient Location: [facility] Accession/Order Number: [id number] Exam Date: 01/27/2024 11:00 Report Date: 01/27/2024 11:43 At the request of: JOSE MIGUEL CAMPUZANO [...] FLUID VOLUME: 2 PRESENTATION: CEPHALIC HEART RATE: 145.16 bpm AMNIOTIC FLUID VOLUME: 17.3 cm GESTATIONAL AGE: 36 weeks 3 days US/US OB BPP w non-stress IMPRESSION: Total biophysical profile score: 8 Electronically authenticated by: KIRK OATES Date: 01/27/2024 11:43 Dictated By: Kirk Oates M.D. Signed By:01/27/24 1146 DD/ 1143 TD/TT: Well Surveying Engineer: us Jose Miguel Campuzano DO [facility]AG[facility] Final Result documented in this encounter Visit Diagnoses Not on filedocumented in this encounter Care Teams Fuel Assembler Relationship Specialty Start Date End Date Raudel Osborne MD [address] [facility] [place] [address] PCP - General Family Medicine 03/02/24 Jose Miguel Campuzano DO [address] [facility] [place] [address] PCP - [facility] 03/17/24 documented as of this encounter
--- OUTSIDE RECORDS SUMMARY | 2024-12-15 12:08 | XMS_ITS | Clinical Summary ---
Author Organization [facility] Address [address] [place] [address] Care Team Providers Care Solid Waste Engineer Name Role Phone Raudel Osborne MD Primary Care Provider [phone] Jose Miguel Campuzano DO Unavailable Allergies Active Allergy Reactions Criticality Noted Date Comments Wound Dressing Adhesive Itching 01/17/2022 Medications valACYclovir (Valtrex) 500 MG tabletIndicatio ns:H/O herpes genitalis TAKE 1 TABLET BY MOUTH EVERY DAY 90 tablet 1 4 Active MV & Min w/FA-DHA ( Gummies) 0.18-25 MG chewable tablet Chew 1 each Daily 12/01/19 25 Discontinu ed(Therapy completed) cholecalciferol (Vitamin D3) 25 MCG (1000 UT) tablet Take 1 tablet by mouth Daily 5 12/01/19 25 Discontinu ed(Therapy completed) Active Problems Problem Noted Date Diagnosed Date UTI symptoms 08/19/2023 Vaginal discharge 08/19/2023 Encounter for scre ening for cervical length ([facility]) 08/19/2023 Hematuria 08/19/2023 Encounters Date Type Department Care Team Description 11/30/2024 10:50 AM EDT Consult [facility] [address] [facility] [address] Jose Miguel Campuzano DO Pre-op examination; Pelvic pain; Dyspareunia in female 11/02/2024 Orders Only [facility] [address] [place] [phone] Brianna Roldan, YAS 10/19/2024 1:00 PM EDT Office Visit [facility] [address] [place] [phone] Jose Miguel Campuzano, Well woman exam with routine gynecological exam 10/19/2024 Clinisync Result Encounter [facility] External Department Unsolicited Jose Miguel Campuzano, DO 10/19/2024 Bamboo flowsheet [facility] [address] [place] [address] Jose Miguel Campuzano, DO 10/05/[address] [facility] [address] [place] [phone] Brianna Roldan, YAS 10/01/2024 10:20 AM EDT Office Visit [facility] [address] [place] [phone] Jose Miguel Campuzano, Vaginal discharge; BV (bacterial vaginosis) 10/01/2024 Bamboo flowsheet [facility] [address] [place] [phone] Jose Miguel Campuzano, 09/23/2024 10:20 AM EDT Office Visit [facility] [address] [place] [address] Betsy Goodwin PA Pelvic pain in female (Primary Dx) 09/23/2024 Bamboo flowsheet [facility] [address] [place] [address] Betsy Goodwin PA 09/23/2024 Travel 09/15/2024 11:40 AM EDT Office Visit [facility] [address] [place] [phone] Jose Miguel Campuzano, Pelvic pain in female; Exposure to STD; Vaginal discharge 09/15/2024 External Result Encounter [facility] External Department Unsolicited Jose Miguel Campuzano DO 09/15/2024 Clinisync Result Encounter [facility] External Department Unsolicited Jose Miguel Campuzano DO 09/15/2024 Bamboo flowsheet [facility] [address] [place] [phone] Jose Miguel Campuzano DO from Last 3 Months Family History Medical History Relation Name Comments ADD / ADHD Brother Mental illness Father Hypertension Maternal Grandfather Heart disease Maternal Grandmother Hypertension Maternal Grandmother Cancer Mother either hodgkin' s or non-hodgkin's lymphoma , thyroid cancer Hypertension Mother Hypertension Paternal Grandmother Mental illness Paternal Grandmother Relation Name Status Comments Brother 4 Daughter 1 Father Alive Maternal Grandfather Maternal Grandmother Mother Alive Paternal Grandmother Son 1 Social History Tobacco Use Types Packs/Day Years Used Date Smoking Tobacco: Never Tobacco Cessation:Counseling Given: Not Answered Alcohol Use Standard Drinks/Week Comments Yes 0 (1 standard drink = 0.6 oz pure alcohol) 1-2 drinks less than monthly in the past year Comments No Sex and Gender Information Value Date Recorded Sex Assigned at Female 11/29/2022 11:34 AM EDT Legal Sex Female 6:42 PM EDT Gender Identity Female 11/29/2022 11:34 AM EDT Sexual Orientation Straight 11/29/2022 11 :34 AM EDT Last Filed Vital Signs Vital Sign Reading Time Taken Comments Blood Pressure 100/60 11/30/2024 11:11 AM EDT Pulse 74 03/02/2024 10:24 AM EDT Temperature - - Respiratory Rate 12 03/02/2024 10:2 4 AM EDT Oxygen Saturation 99% 03/02/2024 10: 24 AM EDT Inhaled Oxygen Concentration - - Weight 81.1 kg (178 lb 12.8 oz) 025 11:11 AM EDT Height 160 cm (5' 3 ) 03/02/2024 10:24 AM EDT Body Mass Index 31.67 03/02/2024 10:24 AM EDT Plan of Treatment Upcoming Encounters Date Type Department Care Team (Late st Contact Info) Description 12/31/2024 9:30 AM EDT Office Visit [facility] OB [address] [place] [phone] Betsy Goodwin PA [address] [place] [address] Dr [place] [phone] Health Maintenance Due Date Last Done Comments Influenza Vaccine (Season Ended) 2025 Procedures Procedure Name Priority Date/Time Associated Diagnosis Comments POCT , URINE Routine 10/19/2024 1:28 PM EDT Well woman exam with routine gynecological exam POCT URINALYSIS DIPSTICK Routine 10/19/2024 1:24 PM EDT Well woman exam with routine gynecological exam IGP,APTIMA HPV,AGE GDLN Routine 10/19/2024 1:12 PM EDT PAP SMEAR Routine 10/19/2024 12:00 AM EDT US PELVIS TRANSVAGINAL 09/15/2024 1:47 PM EDT RECURRENT VAGINITIS (HTRX) Routine 09/15/2024 1:07 PM EDT POCT , URINE Routine 09/15/2024 12:01 PM EDT Pelvic pain in female Exposure to STD Vaginal discharge POCT URINALYSIS DIPSTICK Routine 09/15/2024 12:00 PM EDT Pelvic pain in female from Last 3 Months Results * POCT , urine manually resulted (10/19/2024 1:28 PM EDT) Only the most recent of2 resultswithin the time period is included. Preg Test, Ur Negative Negative Urine 10/19/2024 1:28 PM EDT Jose Miguel Justen DO POINT OF CARE TEST ENTER/EDIT OR DERABLES Final Result * (ABNORMAL) POCT urinalysis dipstick manually resulted (10/19/2024 1:24 PM EDT) Only the most recent of2 resultswithin the time period is included. Color, UA Yellow Clarity, UA Clear Glucose, UA Negative Negative - 1999(110) ++++ mg/dL Bilirubin, UA Negative Negative - 4(70) +++ mg/dL Ketones, UA Negative Negative - 160(16) ++++ mg/dL Spec Grav, UA 1.025 1 - 1.03 Blood, UA Positive Negative - 50 Anselmo/mcL Comment:small pH, UA 7.0 5 - 9 Protein, UA Negative Negative - 1999(20) ++++ mg/dL Urobilinogen, UA 0.2 0.2 - 12 mg/dL Leukocytes, UA Trace Negative - 500+++ Monik/mcL Nitrite, UA Negative Negative - Positive Urine 10/19/2024 1:24 PM EDT Jose Miguel Campuzano DO POINT OF CARE TEST ENTER/EDIT OR DERABLES Final Result * IGP,APTIMA HPV,AGE GDLN (10/19/2024 1:12 PM EDT) AGE GDLN ACOG TESTING Note . [facility] Comment: TESTS RESULT FLAG UNITS REF RANGE LAB Clinician Provided Cytology Information Source.............Cervix;Endocervix No. of containers..01 ThinPrep Vial Age Algo ACOG Ela... FLAG LEGEND: L-Low Normal,H-High Normal,LL-Alert Low,HH-Alert High <-Panic Low,>-Panic High,A-Abnormal,AA-Critical Abnormal Performed at: 01 =G [facility] [address] [address] Katherine Thomason MD, IGP, RFX APTIMA HPV ASCU Note . [facility] Comment: TESTS RESULT FLAG UNITS REF RANGE LAB DIAGNOSIS: 02 NEGATIVE FOR INTRAEPITHELIAL LESION OR MALIGNANCY. Specimen adequacy: 02 Satisfactory for evaluation. Endocervical and/or squamous metaplastic cells (endocervical component) are present. Performed by: 02 Monalisa Murillo, Glass Cut Off Tender ([facility]) . 02 Note: Note 02 The [...] Low,>-Panic High,A-Abnormal,AA-Critical Abnormal Performed at: 02 WB [facility] [address] [place] [address] Katherine Thomason MD, Performed at: = - [facility] [id number] Front End Developer Javascript Html Css: Katherine Thomason MD, Phone: [phone] Performed at: - [address] [id number] Front End Developer Javascript Html Css: Katherine Thomason MD, Phone: [phone] 10/19/2024 1:12 PM EDT 10/20/2024 6:11 AM EDT Narrative [facility] - 10/22/2024 10:08 AM EDT BRUSH-SPATULA CERVIX ENDOCERVIX us Jose Miguel Justen DO LAB BLOOD ORDERABLES Final Resul t Performing Organization Address [facility]/ZIP Co de Phone Number [facility] * Pap Smear (10/19/2024 12:00 AM EDT) Swab Cervical swab / Unknown us Jose Miguel Justen DO LAB CYTOLOGY ORDERABLES Final Re sult EXTERNAL LAB * US PELVIS TRANSVAGINAL (09/15/2024 1:47 PM EDT) Anatomical Region Laterality Modality Other 09/15/2024 1:47 PM EDT Narrative 09/15/2024 1:50 [place] [address] Ultrasound Report Signed Patient: SANDY GODINEZ MR#: [id number] : 1995 Acct:[id number] Age/Sex: 29 / F ADM Date: 09/15/24 Loc: US Attending Dr: Jose Miguel Campzuano D.O. Ordering Physician: Jose Miguel Campuzano D.O. Date of Service: 09/15/24 Procedure(s): US pelvis transvaginal Accession Number(s): [id number] cc: DUARTE VALDERRAMA ; Jose Miguel Campuzano D.O. The [place] [id number] Patient Name: SANDY GODINEZ MRN: [id number] date: 1995 Sex: F Assigned Patient Location: US Current Patient Location: US Accession/Order Number: [id number] Exam Date: 09/15/2024 13:45 Report Date: 09/15/2024 [...] Vinicio Loyd M.D.09/15/2024 1:47 PM Dictation Location: [place] [address] Electronically authenticated by: [id number] Y Date: 09/15/2024 13:47 Dictated By: Vinicio Loyd D.O. Signed By: 09/15/24 1357 DD/ 1347 TD/TT: Shellfish Checker: Procedure Note Radiology, Radiologist, MD - 09/15/[address] [address] Ultrasound Report Signed Patient: SANDY GODINEZ JMR#: [id number] : 1995Acct:[id number] Age/Sex: 29 / FADM Date: 09/15/24 Loc: US Attending Dr: Jose Miguel Campuzano D.O. Ordering Physician: Jose Miguel Campuzano D.O. Date of Service: 09/15/24 Procedure(s): US pelvis transvaginal Accession Number(s): [id number] cc: DUARTE VALDERRAMA ; Jose Miguel Campuzano D.O. The [place] [id number] Patient Name: SANDY GODINEZ MRN: [id number] date: 1995 Sex: F Assigned Patient Location: US Current Patient Location: US Accession/Order Number: [id number] Exam Date: 09/15/2024 13:45 Report Date: 09/15/2024 13:47 At the request of: JOSE MIGUEL CAMPUZANO DO Procedure: US pelvis transvaginal Transvaginal pelvic ultrasound HISTORY: Left pelvic pain for 2 months. Uterus anteverted. No uterine mass. Uterus measures 6.8 x 3.8 x 3.0 cm. Endometrium has a total combined thickness of 1.7 cm. Right ovarymeasures 1.4 x 1.6 x 2.7 cm. The resistive index of the right ovary 0.5. Leftovary measures 2.3 x 1.9 x 1.8 cm and has a resistive index of 0.5. Color-flowboth ovaries. No adnexal mass. No free fluid. US/US pelvis transvaginal IMPRESSION: Unremarkable exam. Impression dictated by: Vinicio Loyd M.D.09/15/2024 1:47 PM Dictation Location: [place] [address] Electronically authenticated by: [id number] Y Date: 3:47 Dictated By: Vinicio Loyd D.O. Signed By:09/15/24 1350 DD/ 1347 TD/TT: Shellfish Checker: Jose Miguel Campuzano DO [facility] Final Result * RECURRENT VAGINITIS (HTRX) (09/15/2024 1:07 PM EDT) Pathologist [facility] ATOPOBIUM VAGINAE 0.000 19.961 - 24.689 ppm 09/16/2024 6:13 AM EDT [facility] ATOPOBIUM VAGINAE Not Detected 19.961 - 24.689 ppm 09/16/2024 6:13 AM EDT [facility] BVAB 2,3 (BACTERIAL VAGINOSIS ASSOCIATED BACTERIA 2, 3); MOBILUNCUS SPP 0.000 19.961 - 24.689 ppm 09/16/2024 6:13 AM EDT [facility] BVAB 2,3 (BACTERIAL VAGINOSIS ASSOCIATED BACTERIA 2, 3); MOBILUNCUS SPP Not Detected 19.961 - 24.689 ppm 09/16/2024 6:13 AM EDT [facility] SHANNON ALBICANS, PARAPSILOSIS, TROPICALIS 0.000 19.961 - 30.770 ppm 09/16/2024 6:13 AM EDT [facility] SHANNON ALBICANS, PARAPSILOSIS, TROPICALIS Not Detected 19.961 - 30.770 ppm 09/16/2024 6:13 AM EDT [facility] SHANNON GLABRATA 0.000 23.000 - 32.138 ppm 09/16/2024 6:13 AM EDT [facility] SHANNON GLABRATA Not Detected 23.000 - 32.138 ppm 09/16/2024 6:13 AM EDT [facility] SHANNON KRUSEI 0.000 23.000 - 32.271 ppm 09/16/2024 6:13 AM EDT [facility] SHANNON KRUSEI Not Detected 23.000 - 32.271 ppm 09/16/2024 6:13 AM EDT [facility] CHLAMYDIA TRACHOMATIS 0.000 23.000 - 31.467 ppm 09/16/2024 6:13 AM EDT [facility] CHLAMYDIA TRACHOMATIS Not Detected 23.000 - 31.467 ppm 09/16/2024 6:13 AM EDT [facility] GARDNERELLA VAGINALIS 0.000 19.961 - 24.689 ppm 09/16/2024 6:13 AM EDT [facility] GARDNERELLA VAGINALIS Not Detected 19.961 - 24.689 ppm 09/16/2024 6:13 AM EDT [facility] MEGASPHAERA (TYPES 1, 2) 0.000 19.961 - 24.689 ppm 09/16/2024 6:13 AM EDT [facility] MEGASPHAERA (TYPES 1, 2) Not Detected 19.961 - 24.689 ppm 09/16/2024 6:13 AM EDT [facility] NEISSERIA GONORRHOEAE 0.000 23.000 - 32.117 ppm 09/16/2024 6:13 AM EDT [facility] NEISSERIA GONORRHOEAE Not Detected 23.000 - 32.117 ppm 09/16/2024 6:13 AM EDT [facility] TRICHOMONAS VAGINALIS 0.000 23.000 - 32.119 ppm 09/16/2024 6:13 AM EDT [facility] TRICHOMONAS VAGINALIS Not Detected 23.000 - 32.119 ppm 09/16/2024 6:13 AM EDT [facility] MYCOPLASMA GENITALIUM 0.000 19.961 - 24.689 ppm 09/16/2024 6:13 AM EDT [facility] MYCOPLASMA GENITALIUM Not Detected 19.961 - 24.689 ppm 09/16/2024 6:13 AM EDT [facility] Tissue 09/15/2024 1:07 PM EDT 09/16/2024 1:38 AM EDT us Jose Miguel Justen DO LAB BLOOD ORDERABLES Final Resul t [facility] [address] [place] [address] from Last 3 Months Insurance [employer] Care Teams Solid Waste Engineer Relationship Specialty Start Date End Date Raudel Osborne MD [address] [place] [address] PCP - General Family Medicine 03/02/24 Jose Miguel Campuzano DO [address] [place] [address] [place] [address] PCP - [facility] 03/17/24
--- OUTSIDE RECORDS SUMMARY | 2024-12-15 12:08 | XMS_ITS | Encounter Summary ---
Author Organization [facility] [employer] [facility] tem Address [id number] [address] [place] [address] Care Team Providers Care Crime Lab Analyst Name Role Phone Unavailable Primary Care Provider Unavailabl e Encounter Details Date Type Department Care Team (Late st Contact Info) Description 12/17/2023 Orders Only Maternal- Medicine at [facility] [address] [place] [phone] Cathy Longo, RN Social History Tobacco Use Types Packs/Day Years [...] on file documented as of this encounter Visit Diagnoses Not on filedocumented in this encounter
--- OUTSIDE RECORDS SUMMARY | 2024-12-15 12:08 | XMS_ITS | Clinical Summary ---
Author Organization [employer] tem Address [id number] [address] [place] [address] Care Team Providers Care Car Rental Service Attendant Name Role Phone Unavailable Primary Care Provider Unavailabl e Allergies Active Allergy Reactions Criticality Noted Date Comments Adhesive Tape-Silicones Itching 10/22/2023 Medications ferrous sulfate 325 (65 FE) mg tablet Take 1 tablet (325 mg total) by mouth daily with breakfast. Active valACYclovir (VALTREX) 500 mg tablet Take 1 tablet (500 mg total) by mouth in the morning and 1 tablet (500 mg total) before bedtime. Active ondansetron ODT (ZOFRAN ODT) 4 mg disintegrating tablet Dissolve 1 tablet (4 mg total) on tongue every 8 (eight) hours as needed for nausea or vomiting. Active PNV no.123-EC-yx4-dha- epa-fish 400 mcg-35 mg- 25 mg-5 mg tablet,chewableInd ications:24 weeks gestation of ,Single umbilical artery Take 2 gummies daily during the 60 tablet 6 Active Active Problems Problem Noted Date Diagnosed Date Circumvallate placenta durin g in second trimester, antepartum 11/07/2023 24 weeks gestation of 11/07/2023 Single umbilical artery 11/07/2023 Family history of cystic fibrosis 11/07/2023 Family History Medical History Relation Name Comments ADD / ADHD Brother Mental illness Father Hypertension Maternal Grandfather Heart disease Maternal Grandmother Hypertension Maternal Grandmother Cancer Mother Hypertension Mother Hypertension Paternal Grandmother Mental illness Paternal Grandmother Relation Name Status Comments Brother Father Maternal Grandfather Maternal Grandmother Mother Paternal Grandmother Social History Tobacco Use Types [...] Purpose and direction in life Unknown Comments No Sex and Gender Information Value Date Recorded Sex Assigned at Not on file Legal Sex Female 9:56 AM EDT Gender Identity Not on file Sexual Orientation Not on file Last Filed Vital Signs Vital Sign Reading Time Taken Comments Blood Pressure 107/53 11/07/2023 1:01 PM EDT Pulse 66 11/07/2023 1:01 PM EDT Temperature - - Respiratory Rate - - Oxygen Saturation - - Inhaled Oxygen Concentration - - Weight 76.8 kg (169 lb 4 oz) 11/07/2023 1:01 PM EDT Height - - Body Mass Index - - Plan of Treatment Health Maintenance Due Date Last Done Comments Depression Screening 2008 Adult BMI Screening 2014 Tobacco Screening 11/06/2024 11/07/2023 Influenza Vaccine 02/15/2025 Pap Smear 09/16/2026 09/17/2023 DTaP,Tdap and Td Vaccines (8 - Td or Tdap) 02/11/2032 02/10/2022, 02/23/2010, 01/29/2002, Additional history exists Medical Devices Not on file Insurance [employer]
--- OUTSIDE RECORDS SUMMARY | 2024-12-15 12:08 | XMS_ITS | Encounter Summary ---
Author Organization [facility] Address [address] [place] [place] [address] Care Team Providers Care Machinist Apprentice Name Role Phone Raudel Osborne MD Primary Care Provider [phone] Jose Miguel Campuzano DO Unavailable Encounter Details Date Type Department Care Team (Late Contact Info) Description 01/21/2024 Clinisync Result Encounter [facility] External Department Unsolicited Jose Miguel Campuzano, DO [address] [facility] [address] Sukumar Noyola, [facility] [...] EDT Office Visit [facility] [address] [place] [phone] Betsy Goodwin PA [address] [place] [phone] (work) documented as of this encounter Procedures Procedure Name Priority Date/Time Associated Diagnosis Comments US OB GROWTH 01/21/2024 8:10 AM EDT documented in this encounter Results * US OB GROWTH (01/21/2024 8:10 AM EDT) Anatomical Region Laterality Modality Other 01/21/2024 8:10 AM EDT Narrative 01/21/2024 8:13 AM EDT [address] [address] Ultrasound Report Signed Patient: DOMENIC GODINEZ MR#: [id number] : 1995 Acct:[id number] Age/Sex: 28 / F ADM Date: 01/20/24 Loc: US Attending Dr: Jose Miguel Campuzano D.O. Ordering Physician: Jose Miguel Campuzano D.O. Date of Service: 01/20/24 Procedure(s): US OB growth Accession Number(s): [id number] cc: DUARTE VALDERRAMA ; Jose Miguel Campuzano D.O. [address] [address] Patient Name: DOMENIC GODINEZ MRN: [id number] date: 1995 Sex: F Assigned Patient Location: Current Patient Location: Accession/Order Number: [id number] Exam Date: 01/20/2024 10:55 Report Date: 01/21/2024 [...] M.D. Signed By: 01/21/24812 DD/ 9 TD/TT: Field Application Engineer: Procedure Note Radiology, Radiologist, MD - 01/21/2024 [place] [address] Ultrasound Report Signed Patient: DOMENIC GODINEZ R#: [id number] : 1995Acct:[id number] Age/Sex: 28 / FADM Date: 01/20/24 Loc: US Attending Dr: Jose Miguel Campuzano D.O. Ordering Physician: Jose Miguel Campuzano D.O. Date of Service: 01/20/24 Procedure(s): US OB growth Accession Number(s): [id number] cc: DUARTE VALDERRAMA ; Jose Miguel Campuzano D.O. The [place] [address] Patient Name: DOMENIC GODINEZ MRN: [facility]:[id number] date: 1995 Sex: F Assigned Patient Location: US Current Patient Location: US Accession/Order Number: [id number] Exam Date: 01/20/2024 10:55 Report Date: 01/21/2024 [...] 08:10 Dictated By: Josue Kebede M.D. Signed By:01/21/24812 DD/ 9 TD/TT: Field Application Engineer: Jose Miguel Campuzano DO [facility] Final Result documented in this encounter Visit Diagnoses Not on filedocumented in this encounter Care Teams Machinist Apprentice Relationship Specialty Start Date End Date Raudel Osborne MD [address] [place] [address] PCP - General Family Medicine 03/02/24 Jose Miguel Campuzano DO [address] [place] [address] [place] [address] PCP - [facility] 03/17/24 documented as of this encounter
--- OUTSIDE RECORDS SUMMARY | 2024-12-15 12:08 | XMS_ITS | Encounter Summary ---
Author Organization [facility] Address [address] [place] [address] Care Team Providers Care Rotary Shear Cutter Name Role Phone Raudel Osborne MD Primary Care Provider [phone] Jose Miguel Campuzano DO Unavailable Encounter Details Date Type Department Care Team (Late Contact Info) Description 01/21/2024 Clinisync Result Encounter NOMS External Department Unsolicited Jose Miguel Campuzano, DO [address] [facility] [address] Sukumar Noyola, [facility]11 Social History Tobacco Use Types Packs/Day Years [...] Visit [facility] BCP OB [address] [facility] [place] [address] Betsy Goodwin PA [address] [place] [id number] [phone] (work) documented as of this encounter Procedures Procedure Name Priority Date/Time Associated Diagnosis Comments US OB UMBILICAL ARTERY DOPPLER 01/21/2024 5:43 AM EDT documented in this encounter Results * US OB UMBILICAL ARTERY DOPPLER (01/21/2024 5:43 AM EDT) Anatomical Region Laterality Modality Radiographic Ada ging 01/21/2024 5:43 AM EDT Narrative 01/21/2024 5:45 AM EDT [address] [address] Ultrasound Report Signed Patient: DOMENIC GODINEZ MR#: [id number] : 1995 Acct:[id number] Age/Sex: 28 / F ADM Date: 01/20/24 Loc: US Attending Dr: Jose Miguel Campuzano D.O. Ordering Physician: Jose Miguel Campuzano D.O. Date of Service: 01/20/24 Procedure(s): US OB umbilical artery Accession Number(s): [id number] cc: DUARTE VALDERRAMA ; Jose Miguel Campuzano D.O. [address] [address] Patient Name: DOMENIC OGDINEZ MRN: [facility]:[id number] date: 1995 Sex: F Assigned Patient Location: [facility] Current Patient Location: US Accession/Order Number: [id number] Exam Date: 01/20/2024 10:58 Report Date: 01/21/2024 05:43 At the request of: JOSE MIGUEL CAMPUZANO Procedure: US OB umbilical artery EXAMINATION: US OB umbilical artery HISTORY: Single vessel of umbilical cord Q27.0 COMPARISON: Ultrasound available artery 01/13/2024 TECHNIQUE: Duplex Doppler evaluation of the umbilical arteries. FINDINGS: HEART RATE: 137 bpm UMBILICAL ARTERIES: 1 GESTATIONAL AGE: 35 weeks 3 days WAVEFORM: Normal upstroke. No notching. Forward flow in diastole. PEAK SYSTOLIC VELOCITY: 85 cm/s END DIASTOLIC VELOCITY: 37 cm/s SYST/DIAST RATIO (S:D): 2.3 RESISTIVE INDEX: 0.56 US/US OB umbilical artery IMPRESSION: 1. Class 0 = Normal umbilical artery blood velocity Electronically authenticated by: JOSUE KEBEDE Date: 01/21/2024 05:43 Dictated By: Josue Kebede M.D. Signed By: 01/21/2445 DD/ TD/TT: Slip Cover Seamstress: Procedure Note Radiology, Radiologist, MD - 01/21/2024 [place] [address] Ultrasound Report Signed Patient: DOMENIC GODINEZ R#: [id number] : 1995Acct:[id number] Age/Sex: 28 / FADM Date: 01/20/24 Loc: US Attending Dr: Jose Miguel Campuzano D.O. Ordering Physician: Jose Miguel Campuzano D.O. Date of Service: 01/20/24 Procedure(s): US OB umbilical artery Accession Number(s): [id number] cc: DUARTE VALDERRAMA ; Jose Miguel Campuzano D.O. The [place] [address] Patient Name: DOMENIC GODINEZ MRN: [facility]:[id number] date: 1995 Sex: F Assigned Patient Location: [facility] Current Patient Location: Accession/Order Number: [id number] Exam Date: 01/20/2024 10:58 Report Date: 01/21/2024 05:43 At the request of: JOSE MIGUEL CAMPUZANO Procedure: US OB umbilical artery EXAMINATION: US OB umbilical artery HISTORY: Single vessel of umbilical cord Q27.0 COMPARISON: Ultrasound available artery 01/13/2024 TECHNIQUE: Duplex Doppler evaluation of the umbilical arteries. FINDINGS: HEART RATE: 137 bpm UMBILICAL ARTERIES: 1 GESTATIONAL AGE: 35 weeks 3 days WAVEFORM: Normal upstroke. No notching. Forward flow in diastole. PEAK SYSTOLIC VELOCITY: 85 cm/s END DIASTOLIC VELOCITY: 37 cm/s SYST/DIAST RATIO (S:D): 2.3 RESISTIVE INDEX: 0.56 US/US OB umbilical artery IMPRESSION: 1. Class 0 = Normal umbilical artery blood velocity Electronically authenticated by: JOSUE KEBEDE Date: 01/21/2024 05:43 Dictated By: Josue Kebede M.D. Signed By:01/21/2445 DD/ TD/TT: Slip Cover Seamstress: Jose Miguel Campuzano DO IMG XR PROCEDURES Final Result documented in this encounter Visit Diagnoses Not on filedocumented in this encounter Care Teams Rotary Shear Cutter Relationship Specialty Start Date End Date Raudel Osborne MD [address] [place] [address] PCP - General Family Medicine 03/02/24 Jose Miguel Campuzano DO [address] [place] [address] Dr Sukumar [place] [address] PCP - [facility] 03/17/24 documented as of this encounter
--- OUTSIDE RECORDS SUMMARY | 2024-12-15 12:08 | XMS_ITS | Encounter Summary ---
Author Organization [facility] Address [address] [place] [address] Care Team Providers Care Computer Artist Name Role Phone Raudel Osborne MD Primary Care Provider [phone] Jose Miguel Campuzano DO Unavailable Encounter Details Date Type Department Care Team (Late Contact Info) Description 01/13/2024 Clinisync Result Encounter NOMS External Department Unsolicited Jose Miguel Campuzano, DO [address] [facility] [address] Sukumar Noyola, [facility]11 Social History Tobacco Use Types Packs/Day [...] EDT Office Visit [facility] BCP OB [address] [facility] [place] [address] Betsy Goodwin PA [address] [place] [id number] [phone] (work) documented as of this encounter Procedures Procedure Name Priority Date/Time Associated Diagnosis Comments US OB UMBILICAL ARTERY DOPPLER 01/13/2024 2:44 PM EDT documented in this encounter Results * US OB UMBILICAL ARTERY DOPPLER (01/13/2024 2:44 PM EDT) Anatomical Region Laterality Modality Radiographic Ada ging 01/13/2024 2:44 PM EDT Narrative 01/13/2024 2:46 PM EDT [address] [address] Ultrasound Report Signed Patient: DOMENIC GODINEZ MR#: [id number] : 1995 Acct:[id number] Age/Sex: 28 / F ADM Date: 01/13/24 Loc: US Attending Dr: Jose Miguel Campuzano D.O. Ordering Physician: Jose Miguel Campuzano D.O. Date of Service: 01/13/24 Procedure(s): US OB umbilical artery Accession Number(s): [id number] cc: DUARTE VALDERRAMA ; Jose Miguel Campuzano D.O. [address] [address] Patient Name: DOMENIC GODINEZ MRN: [id number]:[id number] date: 1995 Sex: F Assigned Patient Location: US Current Patient Location: US Accession/Order Number: [id number] Exam Date: 01/13/2024 11:40 Report Date: 01/13/2024 14:44 At the request of: JOSE MIGUEL CAMPUZANO Procedure: US OB umbilical artery EXAMINATION: US OB umbilical artery HISTORY: Two vessel cord O09.899 COMPARISON: No relevant comparison available. TECHNIQUE: Duplex Doppler evaluation of the umbilical arteries. FINDINGS: HEART RATE: 139 bpm UMBILICAL ARTERIES: 1 GESTATIONAL AGE: 34 weeks 3 days WAVEFORM: Normal upstroke. No notching. Forward flow in diastole. PEAK SYSTOLIC VELOCITY: 126 cm/s END DIASTOLIC VELOCITY: 59 cm/s SYST/DIAST RATIO (S:D): 2.2 RESISTIVE INDEX: 0.53 US/US OB umbilical artery IMPRESSION: 1. Class 0 = Normal umbilical artery blood velocity Electronically authenticated by: JOSUE KEBEDE Date: 01/13/2024 14:44 Dictated By: Josue Kebede M.D. Signed By: 01/13/241445 DD/ 43 TD/TT: Medical Consultant: Procedure Note Radiology, Radiologist, MD - 01/13/2024 [place] [address] Ultrasound Report Signed Patient: DOMENIC GODINEZ JMR#: [id number] : 1995Acct:[id number] Age/Sex: Date: 01/13/24 Loc: US Attending Dr: Jose Miguel Campuzano D.O. Ordering Physician: Jose Miguel Campuzano D.O. Date of Service: 01/13/24 Procedure(s): US OB umbilical artery Accession Number(s): [id number] cc: DUARTE VALDERRAMA ; Jose Miguel Capmuzano D.O. The [place] [address] Patient Name: DOMENIC GODINEZ MRN: [id number]:[id number] date: 1995 Sex: F Assigned Patient Location: Current Patient Location: Accession/Order Number: [id number] Exam Date: 01/13/2024 11:40 Report Date: 01/13/2024 14:44 At the request of: JOSE MIGUEL CAMPUZANO Procedure: US OB umbilical artery EXAMINATION: US OB umbilical artery HISTORY: Two vessel cord O09.899 COMPARISON: No relevant comparison available. TECHNIQUE: Duplex Doppler evaluation of the umbilical arteries. FINDINGS: HEART RATE: 139 bpm UMBILICAL ARTERIES: 1 GESTATIONAL AGE: 34 weeks 3 days WAVEFORM: Normal upstroke. No notching. Forward flow in diastole. PEAK SYSTOLIC VELOCITY: 126 cm/s END DIASTOLIC VELOCITY: 59 cm/s SYST/DIAST RATIO (S:D): 2.2 RESISTIVE INDEX: 0.53 US/US OB umbilical artery IMPRESSION: 1. Class 0 = Normal umbilical artery blood velocity Electronically authenticated by: JOSUE KEBEDE Date: 01/13/2024 14:44 Dictated By: oJsue Kebede M.D. Signed By:01/13/24 1446 DD/ 1444 TD/TT: Medical Consultant: Jose Miguel Campuzano DO IMG XR PROCEDURES Final Result documented in this encounter Visit Diagnoses Not on filedocumented in this encounter Care Teams Computer Artist Relationship Specialty Start Date End Date Raudel Osborne MD [address] [facility] [place] [address] PCP - General Family Medicine 03/02/24 Jose Miguel Campuzano DO [address] [place] [address] Dr [place] [place] [address] PCP - [facility] 03/17/24 documented as of this encounter
--- OUTSIDE RECORDS SUMMARY | 2024-12-15 12:08 | XMS_ITS | Clinical Summary ---
Author Organization [facility] Address [address] [place] [address] Care Team Providers Care Line Erector Apprentice Name Role Phone Rebecca Garcia LEARNING ENGINEER Primary Care Provider [phone] Allergies No known active allergies Medications VITAMIN PLUS LOW IRON 27 mg iron- 1 mg tab Take 1 tablet by mouth once daily. 11 09/29/2018 Active Active Problems Problem Noted Date Diagnosed Date Spine pain 02/11/2012 Social History Tobacco Use Types Packs/Day Years Used Date Smoking Tobacco: Passive Smo ke Exposure - Never Smoker Smokeless Tobacco: Never Comments:mom and dad in and outside Alcohol Use Standard Drinks/Week Comments Not Asked 0 (1 standard drink = 0.6 oz pur e alcohol) Area Deprivation Index Answer Date Rhett rded National Score (1-100), lower number is lower ri sk Not on file 05/25/2020 State Score (1-10), lower number is lower risk N ot on file 05/25/2020 Data from: https://www.neighborhoodatlas.medicine.[facility].edu/. Last address used for calculation Not on file 05/25/2020 Comments Unknown Sex and Gender Information Value Date Recorded Sex Assigned at Not on file Legal Sex Female 10:17 AM EST Gender Identity Not on file Sexual Orientation Not on file Last Filed Vital Signs Vital Sign Reading Time Taken Comments Blood Pressure 116/64 10/28/2018 12:27 PM EDT Pulse 101 10/28/2018 12:27 PM EDT Temperature 37.1 C (98.8 F) 10/28/2018 12:27 PM EDT Respiratory Rate 16 10/28/2018 12:27 PM EDT Oxygen Saturation 99% 10/28/2018 12:27 PM EDT Inhaled Oxygen Concentration - - Weight 59 kg (130 lb) 10/28/2018 12:27 PM EDT Height 162.6 cm (5' 4 ) 10/28/2018 12:27 PM EDT Body Mass Index 22.31 10/28/2018 12:27 PM EDT Plan of Treatment Health Maintenance Due Date Last Done Comments Anxiety Screening 2014 Depression Screening 2014 HIV Screening 2014 DTaP,Tdap,Td Vaccine (1 - Tdap) 08/31/2015 Hepatitis B Vaccine (1 of 3 - 19+ 3-dose series) 08/30 Cervical Cancer Screening 2017 Covid-19 Vaccine ( season) 2024 Influenza Vaccine (Season Ended) 2025 Hepatitis C Screening Completed 02/24/2015 Procedures Procedure Name Priority Date/Time Associated Diagnosis Comments HEP REMOTE PANEL BL Routine 02/24/2015 1 :55 PM EDT Spine pain from Last 3 Months or Most Recently Relevant to Health Maintenance Results * HEP REMOTE PANEL BL (02/24/2015 1:55 PM EDT) Hep B Core Ab, Total Negative Negative 02/24/2015 10:14 PM EDT [facility] Hep C Antibody IA Negative Negative 02/24/2015 10:15 PM EDT [facility] HBsAg Negative Negative 02/24/2015 10:15 PM EDT [facility] Hep B Surface Ab, Qual Negative Negative 02/24/2015 10:15 PM EDT [facility] Comment:NEGATIVE Blood specimen (specimen) BLOOD SPECIMEN / Unknown 02/24/2015 1:55 PM EDT 02/24/2015 1:57 PM EDT us Chanel Root COMFORT FILLER.LEARNING ENGINEER LABORATORY Final Re sult [facility] [address] [place] [address] from Last 3 Months or Most Recently Relevant to Health Maintenance Insurance [facility] MEDICAID Care Teams Line Erector Apprentice Relationship Specialty Start Date End Date Rebecca Garcia CNP PCP - General Family Medicine 09/16/14
--- OUTSIDE RECORDS SUMMARY | 2024-12-15 12:08 | XMS_ITS | Patient Health Record ---
Author Organization [facility] Address [address] [place] [address] Care Team Providers Care Iron Bender Name Role Phone Marbin Crummariia Primary Care Provider [phone] Tricia Cortes Unavailable [phone] Juliet Wilkins Unavailable [phone] Reason For Referral No Information Medications Medication SIG (Take, Route, Fr equency, Duration) Notes Start Date End Date Status Venlafaxine HCl Acti ve Valacyclovir HCl Act mitch Plan Of Treatment Next Appt Details Provider Name:Kylie marcelo, 03/23/2025 11:30:00 AM, [address] [facility] [place], [address], Insurance Providers Payer Name Payer Address Payer Phone Subscriber Number Group Number Insured Name Patient Relationship to Insured Coverage Start Date Coverage End Date [employer]-ter[employer] [address] [place] [phone] [id number] HERBERT FRANCIAJESE Self - patient is the insured 2 3 [employer] [place] Medicaid [address] [place] [address] [id number] SANDY GODINEZ Self - patient is the insured 3 Wrap [facility] Care[employer]ourc e [address] [place] [address] [id number] HERBERT FRANCIAJESE Self - patient is the insured 3 zMEDICAID C[employer] after [employer] E-termed [address] [place] [address] [id number] SANDY GODINEZ Self - patient is the insured 2 3 zDENTAL DQ [employer] E-termed 22 [address] [place] [phone] [id number] SANDY GODINEZ Self - patient is the insured 2 3 zDental MEDICAID CFC after [employer] E-termed [address] [place] [address] [id number] SANDY GODINEZ Self - patient is the insured 2 3 Dental [employer] DQ [place] [address] [place] [phone] [id number] SANDY GODINEZ Self - patient is the insured 3 Dental Wrap [employer] e [address] [place] [address] [id number] SANDY GODINEZ Self - patient is the insured 3
--- OUTSIDE RECORDS SUMMARY | 2024-12-15 12:08 | XMS_ITS | Encounter Summary ---
Author Organization [facility] Address [address] [place] [address] Care Team Providers Care Health Equipment Servicer Name Role Phone Raudel Osborne MD Primary Care Provider [phone] Jose Miguel Campuzano DO Unavailable Encounter Details Date Type Department Care Team (Late Contact Info) Description 12/30/2023 Clinisync Result Encounter NOMS External Department Unsolicited Jose Miguel Campuzano, DO [address] [facility] [address] Sukumar Noyola, [facility]11 Social History Tobacco Use Types [...] Visit [facility] BCP OB [address] [facility] [place] [address] Betsy [place] PA [address] [place] [id number] [phone] (work) documented as of this encounter Procedures Procedure Name Priority Date/Time Associated Diagnosis Comments US OB UMBILICAL ARTERY DOPPLER 12/30/2023 1:17 PM EDT documented in this encounter Results * US OB UMBILICAL ARTERY DOPPLER (12/30/2023 1:17 PM EDT) Anatomical Region Laterality Modality Radiographic Ada ging 12/30/2023 1:17 PM EDT Narrative 12/30/2023 1:19 PM EDT [address] [address] Ultrasound Report Signed Patient: DOMENIC GODINEZ MR#: [id number] : 1995 Acct:[id number] Age/Sex: 28 / F ADM Date: 12/30/23 Loc: US Attending Dr: Jose Miguel Campuzano D.O. Ordering Physician: Jose Miguel Campuzano D.O. Date of Service: 12/30/23 Procedure(s): US OB umbilical artery Accession Number(s): [id number] cc: DUARTE VALDERRAMA ; Jose Miguel Campuzano D.O. [address] [address] Patient Name: DOMENIC GODINEZ MRN: [id number] date: 1995 Sex: F Assigned Patient Location: [facility] Current Patient Location: US Accession/Order Number: [id number] Exam Date: 12/30/2023 12:15 Report Date: 12/30/2023 13:17 At the request of: JOSE MIGUEL CAMPUZANO Procedure: US OB umbilical artery EXAMINATION: US OB umbilical artery HISTORY: 2 vessel cord COMPARISON: No relevant comparison available. TECHNIQUE: Duplex Doppler evaluation of the umbilical arteries. FINDINGS: Gestational age: 32 weeks 3 days Heart rate: 146 beats minute Proximal umbilical artery: PSV/EDV 133/51 cm/s. Resistive index 0.62. Ratio 2.6 Mid umbilical artery PSV/EDV 114/52 cm/s. Resistive index 0.55. Ratio 2.2 Distal umbilical artery PSV/EDV: 85/43 cm/s. Resistive index 0.49. Ratio 2.0 Forward flow identified throughout diastole US/US OB umbilical artery IMPRESSION: Normal exam. [...] weeks. Electronically authenticated by: KIRK OATES Date: 12/30/2023 13:17 Dictated By: Kirk Oates M.D. Signed By: 12/30/23 131 DD/ 1317 TD/TT: Rivet Sticker: Procedure Note Radiology, Radiologist, MD - 12/30/2023 [place] [address] Ultrasound Report Signed Patient: DOMENIC GODINEZ JMR#: [id number] : 1995Acct:[id number] Age/Sex: 28 / FADM Date: 12/30/23 Loc: US Attending Dr: Jose Miguel Campuzano D.O. Ordering Physician: Jose Miguel Campuzano D.O. Date of Service: 12/30/23 Procedure(s): US OB umbilical artery Accession Number(s): [id number] cc: DUARTE VALDERRAMA ; JoseM iguel Campuzano D.O. The [place] [address] Patient Name: DOMENIC GODINEZ MRN: [id number] date: 1995 Sex: F Assigned Patient Location: [facility] Current Patient Location: US Accession/Order Number: [id number] Exam Date: 12/30/2023 12:15 Report Date: 12/30/2023 13:17 At the request of: JOSE MIGUEL CAMPUZANO Procedure: US OB umbilical artery EXAMINATION: US OB umbilical artery HISTORY: 2 vessel cord COMPARISON: No relevant comparison available. TECHNIQUE: Duplex Doppler evaluation of the umbilical arteries. FINDINGS: Gestational age: 32 weeks 3 days Heart rate: 146 beats minute Proximal umbilical artery: PSV/EDV 133/51 cm/s. Resistive index 0.62.Ratio 2.6 Mid umbilical artery PSV/EDV 114/52 cm/s. Resistive index 0.55. Ratio 2.2 Distal umbilical artery PSV/EDV: 85/43 cm/s. Resistive index 0.49. Ratio2.0 Forward flow identified throughout diastole US/US OB umbilical artery IMPRESSION: Normal exam. [...] weeks. Electronically authenticated by: KIRK OATES Date: 12/30/2023 13:17 Dictated By: Kirk Oates M.D. Signed By:12/30/23 1319 DD/ TD/TT: Rivet Sticker: Jose Miguel Campuzano DO IMG XR PROCEDURES Final Result documented in this encounter Visit Diagnoses Not on filedocumented in this encounter Care Teams Health Equipment Servicer Relationship Specialty Start Date End Date Raudel Osborne MD [address] [place] [address] PCP - General Family Medicine 03/02/24 Jose Miguel Campuzano DO [address] [place] [address] [place] [address] PCP - [facility] 03/17/24 documented as of this encounter
--- OUTSIDE RECORDS SUMMARY | 2024-12-15 12:09 | XMS_ITS | Encounter Summary ---
Author Organization [facility] Address [address] [place] [address] Care Team Providers Care Loom Setter Name Role Phone Raudel Osborne MD Primary Care Provider [phone] Edward Campuzano DO Unavailable Encounter Details Date Type Department Care Team (Late Contact Info) Description 11/02/2024 Orders Only [facility] BCP OB [address] [facility] [place] [address] Brianna Roldan LPN [address] [place] [id number] Social History Tobacco Use Types Packs/Day Years [...] EDT Office Visit NOMS BCP OB [address] [facility] [place] [address] Betsy Goodwin PA [address] [facility] [place] [address] documented as of this encounter Procedures Procedure Name Priority Date/Time Associated Diagnosis Comments PAP SMEAR Routine 10/19/2024 12:00 AM EDT documented in this encounter Results * Pap Smear (10/19/2024 12:00 AM EDT) Swab Cervical swab / Unknown Edward Campuzano DO LAB CYTOLOGY ORDERABLES Final Re sult EXTERNAL LAB documented in this encounter Visit Diagnoses Not on filedocumented in this encounter Care Teams Loom Setter Relationship Specialty Start Date End Date Raudel Osborne MD [address] [facility] [place] [address] PCP - General Family Medicine 03/02/24 Edward Campuzano DO [address] [place] [address] [place] [address] PCP - [facility] 03/17/24 documented as of this encounter
--- OUTSIDE RECORDS SUMMARY | 2024-12-15 12:09 | XMS_ITS | Patient Health Record ---
Author Organization [facility] Address [address] [place] [address] Care Team Providers Care Automotive Lot Attendant Name Role Phone Noemi Jiang Primary Care Provider [facility] Melida Escalera Unavailable [phone] Reason For Referral No Information Problems Problem Type SNOMED Code ICD Code Onset Dates Problem Status W/U Status Risk Notes Problem 057733530 Fibromyalgia (M79.7) Active confirmed Problem [id number] Neck pain (M54.2) Active confirmed Encounters Encounter Location Date Provider Diagnosis [facility] [address] [place] [address] 12/01/2024 Inras Davidson Low back pain, unspecified back pain laterality, unspecified chronicity, unspecified whether sciatica present M54.50 ; Thoracic back pain, unspecified back pain laterality, unspecified chronicity M54.6 ; Neck pain M54.2 and Fibromyalgia M79.7 Assessments Encounter Date Diagnosis (ICD Code) Assessment Notes Treatment Notes Treatment Clinical Notes Section Notes 12/01/2024 Thoracic back pain, unspecified back pain [...] we will likely obtain MR imaging. 12/01/2024 Low back pain, unspecified back pain [...] likely obtain MR imaging. Plan Of Treatment No Information Insurance Providers Payer Name Payer Address Payer Phone Subscriber Number Group Number Insured Name Patient Relationship to Insured Coverage Start Date Coverage End Date Medicaid [employer] [place] [address] [place] [address] [id number] SANDY GODINEZ Self - patient is the insured 5
== END 2024-12-15 12:05 | disposition home or self-care (01) ==
LOC: PST 12:04
PROVIDERS: PCP Nurse Practitioner Family; Visit Provider Obstetrics & Gynecology
DX: Z01.818 Encounter for other preprocedural examination (principal); R10.2 Pelvic and perineal pain; N94.10 Unspecified dyspareunia

== ENCOUNTER 2024-12-25 07:12 | Day surgery (SDC) | payer OTHER, SELFPAY ==
[2024-12-15 12:32] VITALS: BP 118/74; PULSE 73; TEMP 36.3; O2SAT 99; BMI 31.9
[2024-12-25] VITALS (11 sets, daily range): BP systolic 89–127; BP diastolic 63–78; PULSE 69–93; TEMP 36.1–36.5; O2SAT 93–99; BMI 31.7
--- OUTSIDE RECORDS SUMMARY | 2024-12-25 07:16 | XMS_ITS | CCD ---
Author Organization [facility] Care Team Providers Care Top Screw Name Role Phone Rebecca Lange Primary Care Provider VIBHA JOHNSON Attending Unavailable VIBHA JOHNSON Referring Unavailable REBECCA LANGE Primary Care Unavailable Kelli Oliver Primary Care Physician [phone] MISC, DR LORENZANA Primary Care Unavailable MANOJ CNUNINGHAM Consulting Unavailable MANOJ CUNNINGHAM Admitting Unavailable MANOJ CUNNINGHAM Attending Unavailable ILIR MARSHALL Consulting Unavailable JUSTEN, DR GILLESPIE Attending Unavailable [...] MISC, DR LORENZANA Primary Care Unavailable ILIR MARSHALL Consulting Unavailable ANN, ILIR Admitting Unavailable ILIR MARSHALL Attending Unavailable REBECCA LANGE Primary Care Unavailable LAVELLE, DUARTE Consulting Unavailable LAVELLE, DUARTE Primary Care Unavailable LAVELLE, DUARTE Admitting Unavailable LAVELLE, DUARTE Attending Unavailable JUSTEN, DR GILLESPIE Consulting Unavailable JUSTEN, DR GILLESPIE Admitting Unavailable JUSTEN, DR GILLESPIE Attending Unavailable REQUEST, DR NONE LISTED Primary Care Unavaila ble ZIEBER, DR DAVID Sanchez Consulting Unavailable JUSTEN, DR GILLESPIE Attending Unavailable WEST, DR KIRK Johnsno Consulting Unavailable JUSTEN, DR GILLESPIE Admitting Unavailable MISC, DR DOCTOR Primary Care Unavailable JUSTEN, DR FIELDSY Consulting Unavailable Unavailable Primary Care Provider Unavailjina CAMPUZANO, EDWARD R Referring Unavailable MIUTL RDZ Attending Unavailable EDWARD CAMPUZANO Referring Unavailable DO Janie Theodore Attending Provider Raudel Osborne MD Primary Care Provider [phone] MD Igor Becerra Attending Provider Edward Campuzano DO Unavailable Raudel Osborne Primary Care Physician Unavailable Primary Care Provider UnavailRaudel Ann MD Primary Care Provider [phone] Ilir Marshall MD Attending Provider Raudel Osborne MD Primary Care Provider [phone] JUSTEN, EDWARD Attending Unavailable CHRISTA, BETSY Attending Unavailable JUSTEN, EDWARD Attending Unavailable JUSTEN, EDWARD Attending Unavailable JUSTEN, EDWARD Attending Unavailable JUSTEN, EDWARD Attending Unavailable JUSTEN, EDWARD Attending Unavailable CHRISTA, BETSY Attending Unavailable JUSTEN, EDWARD Attending Unavailable JUSTEN, EDWARD Attending Unavailable JUSTEN, EDWARD Attending Unavailable JANIE THEODORE Attending Unavailable CHRISTA, BETSY Attending Unavailable JUSTEN, EDWARD Attending Unavailable BETSY GOODWIN Attending Unavailable Ilir Marshall Admitting Unavailable Ilir Marshall Attending Unavailable Janie Theodore Admitting Unavailable Janie Theodore Attending Unavailable Igor Becerra Admitting Unavailable Igor Becerra Attending Unavailable Royer Simmons Admitting Unavailab Royer Watts Attending Unavailab [facility] Care Unavailable FELIPA JEFFERS Attending Unavailab FELIPA Alatorre Attending Unavailab avila Allergies Allergy Classification Reported Allergen(s) Allergy Type Date of Onset Reaction(s) Facility (1 source) Desonide Drug Allergy 9 [facility] Repository (20 sources) Wound Dressing Adhesive Drug Intolerance 2 Itching [facility] Work Phone: (6 sources) ADHESIVE TAPE-SILICONES; 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: [ADHESIVE TAPE-SILICONES] Propensity to adverse reactions to drug (disorder) Itching [facility] Repository Medications Current Medications Medication Drug Class(es) Dates Sig (Normalized) Sig (Original) cholecalciferol 0.025 mg oral tablet (15 sources) Vitamin D Start: 08-12-2024 End: 11-30-2024 take 1 tablet by mouth once daily cholecalciferol (Vitamin D3) 25 MCG (1000 UT) tablet Take 1 tablet by mouth Daily 08/12/2024 11/30/2024 Discontinued (Therapy completed) clindamycin 300 mg oral capsule (2 sources) [...] needed for nausea or vomiting. Active PNV no.[id number]-dha-epa-fi sh 400 mcg-35 mg- 25 mg-5 mg tablet,chewable (3 sources) Start: 11-07-2023 PNV no.[id number]-SI-mj9-nqy-amw-wnhm 400 mcg-35 mg- 25 mg-5 mg tablet,chewable Indications: 24 weeks gestation of , Single umbilical artery Take 2 gummies daily during the 60 tablet 6 11/07/2023 Active Gks538-Frsnigq Fumarate-Fa () 28-800 mg-mcg Tablet (3 sources) Start: 06-10-2017 take 1 tablet by mouth once daily Xmt970-Tmrnuxu Fumarate-Fa () 28-800 mg-mcg Tablet Active 1 TAB PO Daily June 10, 2017 1:00am predniSONE (1 source) Start: 03-13-2013 predniSONE Oral, Daily, Refills(s) 0 Start Date: 03/13/13 Status: Ordered MV & Min w/FA-DHA ( Gummies) 0.18-25 MG chewable tablet (20 sources) End: 11-30-2024 MV & Min w/FA-DHA ( Gummies) 0.18-25 MG chewable tablet Chew 1 each Daily 11/30/2024 Discontinued (Therapy completed) MV & Mi n w/FA-DHA ( Gummies) [...] Sig (Original) acetaminophen 500 mg oral tablet (3 sources) Start: 07-16-2017 End: 07-20-2017 take 1 tablet by mouth every six hours as needed for pain Acetaminophen (Tylenol Extra Strength) 500 mg tablet Discontinued 500 MG PO Q6H as needed for fever or pain July 16, 2017 1:00am July 20, 2017 [...] 04/21/2024 04/21/2024 gabapentin 300 mg oral capsule (3 sources) Anti-epileptic Agent Start: 06-10-2017 End: 07-16-2017 take 1 capsule by mouth twice daily Gabapentin 300 mg Capsule Discontinued 300 MG PO Twice daily June [...] Problem Date Documented Date Episodic/Chronic Abdominal pain (11 sources) Left lower quadrant pain; 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: [Pelvic [...] Onset: 02-05-2022 Chronic Fluid and electrolyte disorders (3 sources) Dehydration; 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: [Dehydration] 06-10-2017 Episodic Hemorrhage during ; abruptio placenta; placenta previa (3 sources) Threatened miscarriage in first trimester; 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: [...] [Candidiasis, unspecified] 04-21-2024 Episodic Nausea and vomiting (9 sources) Nausea; 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: [Nausea with vomiting, unspecified] [...] unspecified, unspecified trimester] Onset: 11-07-2023 Episodic Other female genital disorders (1 source) Pain in female genitalia on intercourse; 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: [Unspecified dyspareunia] 11-30-2024 Chronic Other and delivery including normal (3 sources) [...] Vessel cord Onset: 11-07-2023 Urinary tract infections (6 sources) Recurrent urinary tract infection; 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: [Urinary tract infection, site not specified] Onset: 05-07-2024 04-21-2024 Episodic Viral infection (3 sources) Viral disease; 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: [Viral infection, unspecified] [...] Other jail (current) 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; 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: [OTH [facility] CURRENT [...] Fibromyalgia; 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: [FIBROMYALGIA] Onset: 02-05-2022 Episodic Other connective tissue disease (1 source) Myalgia, unspecified site; 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: [Myalgia, unspecified site] Onset: 04-16-2024 Episodic Other female genital disorders (5 sources) [...] Test Name Value Interpretation Reference Range Facility Ambulatory Visit Summaryon 0 12-15-2024 Ambulatory Visit Summary Ambulatory Visit Summary MICHELLE GODINEZ :1995 Visit Date:12/15/2024 Ambulatory Visit Instructions Your Diagnosis Frequent UTI Your Care Team Attending Physician - LEYDI JEFFERS PA-C Primary Care Physician - [place] SCOTT, Raudel Discharge Vitals Heart Rate (Peripheral) 66 Respiratory Rate 16 Blood Pressure 108/66 Height 160 cm Height 63 in Weight 82.3 kg Weight 181.44 lb BMI 32.15 Allergies No Known Allergies Problems Ongoing - Any problem that you are currently receiving treatment for. Frequent UTI Patient Survey You may receive a survey via text or e-mail asking about your office visit. Please share your experience with us by completing your survey. We appreciate your feedback and thank you for choosing us for your care. Patient Portal You may access all of your results and other medical record information on our secure patient portal. If you are not signed up for this yet, please contact [employer] at [phone] to get signed up today. Language Information Language assistance services are available as needed. 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 No dysuria, pain w/ BM. No blood in urine or stool. No change in urgency/frequency, straining, stream changes. No discharge, odor, or change in color of urine. Physical Exam Vitals & Measurements HR: 66(Peripheral) RR: 16 BP: 108/66 HT: 160 cm HT: 63 in WT: 82.3 kg WT: 181.44 lb BMI: 32.15 General: nontoxic, NAD Mouth: moist mucosa Lungs: normal respiratory effort Cardio: regular rate, good distal perfusion Abdomen: nondistended Neurologic: Grossly normal Skin: No rashes or suspicious lesions Assessment/Plan 1. Frequent UTI (N39.0: Urinary tract infection, site not specified) 05/07/24: 06/29/23 - Augmentin x 7d 08/19/23 - [...] w any UTI sx. Otherwise f/u PRN. [1] TODAY: 11/15/24 - [facility] for back pain. Bactrim x 7d. Cx showed skin contam only. This was her first round of abx for UTI since April. UA shows small hgb small leuks. Asx. No indication for Cx. Pt denies UTI sx. Hasn't had +Cx since December 2023. CT w/wo con 10/27/24 - nl kidneys, no hydro. CHAS 11/18/24 - nl Says frequent small voids but then says q2-3h during day. I advised this is normal. Seeing [facility] for chronic pelvic pain (does not change w abx). Having ex lap next week. Pt verbalizes no distinct complaints. I see no indication for additional imaging/eval/tx at this time. F/u PRN. Ordered: Body Mass Index (BMI) documented 3008F Current tobacco non-user 1036F Depression Screening Negative 3352F E&M of Est. Patient Low 20-29 Min 07145 Influenza immunization status assessed 1030F Medication list documented in medical record 1159F Most recent diastolic blood pressure <80 mm Hg 3078F Review of all meds by a prescribing practitioner or clinical pharmacist documented in EHR 1160F Systolic BP <130 mm Hg (Most Recent) 3074F Urnls Dip Stick Auto w/o Microscopy POC 08476 Follow-up With When Contact Information [facility] Additional Instructions: Only if needed/new problems arise. No scheduled appointment indicated at this time. Patient Education Urinary Tract Infection, Adult Problem List/Past Medical History Ongoing Frequent UTI Historical No qualifying data Medications No active medications Allergies No Known Allergies Social History Alcohol - Denies Alcohol Use, 03/13/2013 Never., 05/07/2024 Substance Abuse - Denies Substance Abuse, 03/13/2013 Never., 05/07/2024 Tobacco - Denies Tobacco Use, 03/13/2013 Never (less than 100 in lifetime) Tobacco Use:. Never Smokeless Tobacco Use:., 12/15/2024 Immunizations Vaccine Date Status hepatitis A pediatric vaccine 08/29/2010 Recorded varicella virus vaccine 02/23/2010 Recorded diphtheria/pertussis , acel/tetanus adult 02/23/2010 Recorded meningococcal conjugate vaccine 02/23/2010 Recorded hepatitis A pediatric vaccine 02/23/2010 Recorded varicella virus vaccine 08/11/2007 Recorded measles/mumps/rubell a virus vaccine 02/20/2002 Recorded hepatitis B pediatric vaccine 01/29/2002 Recorded DTaP, unspecified formulation 01/29/2002 Recorded poliovirus vaccine, inactivated 01/30/2000 Recorded hepatitis B pediatric vaccine 01/30/2000 Recorded DTaP, unspecified formulation 01/30/2000 Recorded measles/mumps/rubell a virus vaccine 09/02/1997 Recorded Hib, unspecified formulation 09/02/1997 Recorded DTaP, unspecified formulation 09/02/1997 Recorde (more content not included)... Normal [facility] Comment on above: Result Comment: Elec tronically Signed By: ZEYAD LEO, LEYDI Londono\.br\Date and Time Signed: 12/15/24 10:47 EDT Urine Cultureon 11-15-2024 Bacteria identified Cx Nom (U) <9,000 colonies/ml mixed bacterial skin contaminants 2 Days PERFORMED BY: [place] [address] PATHOLOGIST MULTICULTURAL MANAGER LEXII POWELL M.D. Normal [facility] Comment on above: Performed By: #### C UU #### [address] IGP,APTIMA HPV,AGE GDLNon AGE GDLN ACOG TESTING Note . [facility] Comment on above: TESTS RESULT FLAG UN ITS REF RANGE LAB Clinician Provided Cytology Information Source.............Cervix;Endocervix No. of containers..01 ThinPrep Vial Age Algo ACOG Ela... FLAG LEGEND: L-Low Normal,H-High Normal,LL-Alert Low,HH-Alert High <-Panic Low,>-Panic High,A-Abnormal,AA-Critical Abnormal Performed at: 01 =G [address] [address] Katherine Thomason MD, IGP, RFX APTIMA HPV ASCU Note . [facility] Comment on above: TESTS RESULT FLAG UN ITS REF RANGE LAB DIAGNOSIS: 02 NEGATIVE FOR INTRAEPITHELIAL LESION OR MALIGNANCY. Specimen adequacy: 02 Satisfactory for evaluation. Endocervical and/or squamous metaplastic cells (endocervical component) are present. Performed by: 02 Monalisa Murillo Solid Waste Facility Supervisor ([facility]) . 02 Note: Note 02 The [...] <-Panic Low,>-Panic High,A-Abnormal,AA-Critical Abnormal Performed at: [address] [address] Katherine Thomason MD, Performed at: = - [facility] [address] [id number] Central Melt Specialist: Katherine Thomason MD, Phone: [phone] Performed at: [facility] [address] [id number] Central Melt Specialist: Katherine Thomason MD, Phone: [phone] BRUSH-SPATULA CERVIX ENDOCERVIX [facility] HCG ( test) Ql (U)o n 10-19-2024 Interpretation and review of laboratory results Normal [facility] Preg Test, Ur Negative Negative [facility] Urinalysis macro (dipstick) panel (U)on 10-19-2024 Bilirubin, UA Negative Negative - 4(70) +++ mg/dL [facility] Blood, UA Positive Negative - 50 Anselmo/mcL [facility] Comment on above: small Clarity, UA Clear [facility] Color, UA Yellow [facility] Glucose, UA Negative Negative - 1999(110) ++++ mg/dL [facility] Interpretation and review of laboratory results Abnormal [facility] Ketones, UA Negative Negative - 160(16) ++++ mg/dL [facility] Leukocytes, UA Trace Negative - 500+++ Monik/mcL [facility] Nitrite, UA Negative Negative - Positive [facility] pH, UA 7 5 - 9 [facility] Protein, UA Negative Negative - 1999(20) ++++ mg/dL [facility] Spec Grav, UA 1.025 1 - 1.03 [facility] Urobilinogen, UA 0.2 0.2 - 12 mg/dL [facility] RECURRENT VAGINITIS (HTRX)on 09-16-2024 ATOPOBIUM VAGINAE 0 [facility] ATOPOBIUM VAGINAE Not detected [facility] BVAB 2,3 (BACTERIAL VAGINOSIS ASSOCIATED BACTERIA 2, 3); MOBILUNCUS SPP 0 [facility] BVAB 2,3 (BACTERIAL VAGINOSIS ASSOCIATED BACTERIA 2, 3); MOBILUNCUS SPP Not detected [facility] SHANNON ALBICANS, PARAPSILOSIS, TROPICALIS 0 [facility] SHANNON ALBICANS, PARAPSILOSIS, TROPICALIS Not detected [facility] SHANNON GLABRATA 0 [facility] SHANNON GLABRATA Not detected [facility] SHANNON KRUSEI 0 [facility] SHANNON KRUSEI Not detected [facility] CHLAMYDIA TRACHOMATIS 0 [facility] CHLAMYDIA TRACHOMATIS Not detected N [facility] GARDNERELLA VAGINALIS 0 [facility] GARDNERELLA VAGINALIS Not detected N [facility] MEGASPHAERA (TYPES 1, 2) 0 [facility] MEGASPHAERA (TYPES 1, 2) Not detected [facility] MYCOPLASMA GENITALIUM 0 [facility] MYCOPLASMA GENITALIUM Not detected N [facility] NEISSERIA GONORRHOEAE 0 [facility] NEISSERIA GONORRHOEAE Not detected N [facility] TRICHOMONAS VAGINALIS 0 [facility] TRICHOMONAS VAGINALIS Not detected N [facility] HCG ( test) Ql (U)o n 09-15-2024 Interpretation and review of laboratory results Normal [facility] Preg Test, Ur Negative Negative [facility] US PELVIS TRANSVAGINALon The [address] [address] Ultrasound Report Signed Patient: MICHELLE GODINEZ MR#: [id number] : 1995 Acct:[id number] Age/Sex: 29 / F ADM Date: 09/15/24 Loc: US Attending Dr: Edward Campuzano D.O. Ordering Physician: Edward Campuzano D.O. Date of Service: 09/15/24 Procedure(s): US pelvis transvaginal Accession Number(s): [id number] cc: DUARTE VALDERRAMA ; Edward Campuzano D.O. The [address] [address] Patient Name: MICHELLE GODINEZ MRN: [facility]:[id number] date: 1995 Sex: F Assigned Patient Location: US Current Patient Location: US Accession/Order Number: [id number] Exam Date: 09/15/2024 13:45 Report Date: 09/15/2024 [...] Vinicio Loyd M.D.09/15/2024 1:47 PM Dictation Location: [place] [address] Electronically authenticated by: [id number] Y Date: 09/15/2024 13:47 Dictated By: Vinicio Loyd D.O. Signed By: 09/15/24 1358 DD/ 1347 TD/TT: Transmitter Operator: [facility] Radiology, Radiologist, MD - 09/15/[address] [address] Ultrasound Report Signed Patient: MICHELLE GODINEZ MR#: [id number] : 1995 Acct:[id number] Age/Sex: 29 / F ADM Date: 09/15/24 Loc: US Attending Dr: Edward Campuzano D.O. Ordering Physician: Edward Campuzano D.O. Date of Service: 09/15/24 Procedure(s): US pelvis transvaginal Accession Number(s): [id number] cc: DUARTE VALDERRAMA ; Edward Campuzano D.O. [place] [address] Patient Name: MICHELLE GODINEZ MRN: [id number] date: 1995 Sex: F Assigned Patient Location: US Current Patient Location: US Accession/Order Number: [id number] Exam Date: 09/15/2024 13:45 Report Date: 09/15/2024 [...] Vinicio Loyd M.D.09/15/2024 1:47 PM Dictation Location: [place] [address] Electronically authenticated by: [id number] Y Date: 09/15/2024 13:47 Dictated By: Vinicio Loyd D.O. Signed By: 09/15/24 1352 DD/ 1347 TD/TT: Transmitter Operator: [facility] Radiology Study observation (narrative) [facility] US PELVIS TRANSVAGINALOrdere d By: Radiologist Radiology on 09-15-2024 [facility] Work Phone: Urinalysis macro (dipstick) panel (U)on 09-15-2024 Bilirubin, UA Negative Negative - 4(70) +++ mg/dL [facility] Blood, UA Positive Negative - 50 Anselmo/mcL [facility] Comment on above: trace-lysed Clarity, UA Clear [facility] Color, UA Yellow [facility] Glucose, UA Negative Negative - 1999(110) ++++ mg/dL [facility] Interpretation and review of laboratory results Abnormal [facility] Ketones, UA Negative Negative - 160(16) ++++ mg/dL [facility] Leukocytes, UA Positive Negative - 500+++ Monik/mcL [facility] Comment on above: small Nitrite, UA Negative Negative - Positive [facility] pH, UA 7.5 5 - 9 [facility] Protein, UA Trace Negative - 1999(20) ++++ mg/dL [facility] Spec Grav, UA 1.02 1 - 1.03 [facility] Urobilinogen, UA 0.2 0.2 - 12 mg/dL [facility] URINARY TRACT INFECTION (HTR X)on 05-30-2024 ACINETOBACTER BAUMANII 0 NO [facility] ACINETOBACTER BAUMANII Not detected [facility] SHANNON ALBICANS, PARAPSILOSIS, TROPICALIS 0 [facility] SHANNON ALBICANS, PARAPSILOSIS, TROPICALIS Not detected [facility] SHANNON GLABRATA 0 [facility] SHANNON GLABRATA Not detected [facility] SHANNON KRUSEI 0 [facility] SHANNON KRUSEI Not detected [facility] CITROBACTER FREUNDII 0 [facility] CITROBACTER FREUNDII Not detected NO [facility] ENTEROBACTER AEROGENES, CLOACAE 0 [facility] ENTEROBACTER AEROGENES, CLOACAE Not detected [facility] ENTEROCOCCUS FAECALIS, FAECIUM 0 [facility] ENTEROCOCCUS FAECALIS, FAECIUM Not detected [facility] ESCHERICHIA COLI 0 [facility] ESCHERICHIA COLI Not detected [facility] Interpretation and review of laboratory results Abnormal [facility] KLEBSIELLA PNEUMONIAE, OXYTOCA 0 [facility] KLEBSIELLA PNEUMONIAE, OXYTOCA Not detected [facility]LLA [facility]II [facility]ORGANII Not detected [facility] PROTEUS MIRABILIS, VULGARIS 0 [facility] PROTEUS MIRABILIS, VULGARIS Not detected [facility] PSEUDOMONAS AERUGINOSA 0 NO [facility] PSEUDOMONAS AERUGINOSA Not [facility] SERRATIA MARCESCENS 0 [facility] SERRATIA MARCESCENS Not detected [facility] STAPHYLOCOCCUS AUREUS 0 [facility] STAPHYLOCOCCUS AUREUS Not detected N [facility] STAPHYLOCOCCUS EPIDERMIDIS, HAEMOLYTICUS, LUGDUNENSIS, SAPROPHYTICUS (URINA 0 [facility] STAPHYLOCOCCUS EPIDERMIDIS, HAEMOLYTICUS, LUGDUNENSIS, SAPROPHYTICUS (URINA Not detected [facility] STAPHYLOCOCCUS EPIDERMIDIS, HAEMOLYTICUS, LUGDUNENSIS, SAPROPHYTICUS (URINA 29.998 Abnormal [facility] STAPHYLOCOCCUS EPIDERMIDIS, HAEMOLYTICUS, LUGDUNENSIS, SAPROPHYTICUS (URINA Detected Abnormal [facility] STREPTOCOCCUS AGALACTIAE (GROUP B STREP) 0 [facility] STREPTOCOCCUS AGALACTIAE (GROUP B STREP) Not detected [facility] STREPTOCOCCUS PYOGENES (GROUP A STREP) 0 [facility] STREPTOCOCCUS PYOGENES (GROUP A STREP) Not detected [facility] HCG ( test) Ql (U)o n 05-28-2024 Interpretation and review of laboratory results Normal [facility] Preg Test, Ur Negative Negative [facility] Urinalysis macro (dipstick) panel (U)on 05-28-2024 Bilirubin, UA Negative Negative - 4(70) +++ mg/dL [facility] Blood, UA Positive Negative - 50 Anselmo/mcL [facility] Comment on above: trace Clarity, UA Clear [facility] Color, UA Yellow [facility] Glucose, UA Negative Negative - 1999(110) ++++ mg/dL [facility] Interpretation and review of laboratory results Abnormal [facility] Ketones, UA Negative Negative - 160(16) ++++ mg/dL [facility] Leukocytes, UA Trace Negative - 500+++ Monik/mcL [facility] Nitrite, UA Negative Negative - Positive [facility] pH, UA 6.5 5 - 9 [facility] Protein, UA Negative Negative - 1999(20) ++++ mg/dL [facility] Spec Grav, UA 1.025 1 - 1.03 [facility] Urobilinogen, UA 0.2 0.2 - 12 mg/dL [facility] Urology Office/Clinic Noteon 05-07-2024 Urology Office/Clinic Note Urology Office/Clinic Note Chief Complaint recurrent utis 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 Otherwise f/u PRN. Ordered: 78917 Measure Post Void residual urine and/or bladder capacity by US- non-imaging E&M of New Patient Moderate 45-59 Min 60575 Urnls Dip Stick Auto w/o Microscopy POC 82259 Follow-up With When Contact Information ZEYAD LEO, LEYDI Londono, URL Only if needed [address] [place] [address] Moov cc. (1) Additional Instructions: Patient Education Antibiotic Medicine, [...] Protein Urine Dipstick: Trace (05/07/24 14:28:00) Specific [place] Urine Dipstick: >=1.030 (05/07/24 14:28:00) Urine Appearance Urine Dipstick: Clear (05/07/24 14:28:00) Urine Color Urine Dipstick: Yellow (05/07/24 14:28:00) Urobilinogen Urine Dipstick: Normal 0.2-1 EU/dl (05/07/24 14:28:00) pH Urine Dipstick: 7 (05/07/24 14:28:00) Normal [facility] Comment on above: Result Comment: Elec tronically Signed By: ZEYAD LEO, LEYDI Canales\Date and Time Signed: 05/07/24 15:26 EST Urinalysis macro (dipstick) panel (U)on 04-21-2024 Bilirubin, UA Negative Negative - 4(70) +++ mg/dL [facility] Blood, UA Positive Negative - 50 Anselmo/mcL [facility] Clarity, UA Clear [facility] Color, UA Yellow [facility] Glucose, UA Negative Negative - 2000(110) ++++ mg/dL [facility] Interpretation and review of laboratory results Abnormal [facility] Ketones, UA Negative Negative - 160(16) ++++ mg/dL [facility] Leukocytes, UA Trace Negative - 500+++ Monik/mcL [facility] Nitrite, UA Negative Negative - Positive [facility] pH, UA 5.5 5 - 9 [facility] Protein, UA Negative Negative - 2000(20) ++++ mg/dL [facility] Spec Grav, UA 1.025 1 - 1.03 [facility] Urobilinogen, UA 1.0 0.2 - 12 mg/dL [facility] COLE Antinuclear Antibodieson 04-16-2024 Antinuclear Abs, IFA Positive Critically abnormal . [facility] Comment on above: Result Comment: Nega tive <1:80 Borderline 1:80 Positive >1:80 Performed By: #### C K #### [address] #### COLE #### [facility] , Note 1 Comment Normal . [facility] Comment on above: Result Comment: Kaleigh vasquez Potential Disease Association Homogeneous Systemic Lupus Erythematosus, Drug Induced Systemic Lupus Erythematosus, Chronic Autoimmune hepatitis, Juvenile Idiopathic Arthritis Speckled Sjogren Syndrome, Systemic Lupus Erythematosus, Subacute Cutaneous Lupus, Lupus, Congenital Heart Block, Mixed Connective Tissue Disease, Scleroderma-diffuse, Scleroderma-Autoimmune Myositis Overlap Syndrome, Systemic Lupus Fmbezpwjrnmyf-Pwcwlxzhnzq-Gvsolrkkhl Myositis Overlap Syndrome, Systemic Autoimmune Rheumatic Disease, [...] Cytopenias, Linear Scleroderma, Antiphospholipid Syndrome Performed at: [facility] [id number] Central Melt Specialist: Chiki Santoyo PhD, Phone: [phone] PERFORMED BY: [place] [address] PATHOLOGIST MULTICULTURAL MANAGER BRAD LINDSEY M.D. Performed By: #### C K #### [place] [address] [place] #### COLE #### [facility] , Nuclear Dot Pattern 1:1280 High . [facility] Comment on above: Result Comment: ICAP nomenclature: AC-6,7 Performed By: #### C K #### [address] #### COLE #### [facility] , Speckled Pattern 1:320 High . [facility] Comment on above: Result Comment: Dens e Fine Speckled pattern is noted. This pattern suggests the presence of DFS70 antibody which has a low prevalence in systemic autoimmune rheumatic diseases. ICAP nomenclature: AC-2,4,5,29 Performed By: #### C K #### [place] [address] [place] #### COLE #### [facility] , Creatine kinase [Enzymatic a ctivity/volume] in Serum or PlasmaOrdered By: Igor Becerra on 04-16-2024 CK [Catalytic activity/Vol] 47 U/L Normal 30-223 [facility] Comment on above: Result Comment: PERF ORMED BY: [place] [address] PATHOLOGIST MULTICULTURAL MANAGER BRAD LINDSEY M.D. Performed By: #### C K #### [place] [address] [place] #### COLE #### [facility] , HCG QUALITATIVE*on 4 TBH , QUAL Negative NEGATIVE [facility] 03-10-2024 L Specimen: [id number] Received: 03/10/24 Status: ADRIANNE Cyr Num: [id number] Spec Type: Surgical Subm Dr: Janie Theodore DO Tissues: A Gallbladder (GALLBLADDER) Procedures: HE, Gross/Micro L3 Age/ Patient Sex Location Account Attending Physician Michelle Godinez 28/F [facility] [id number] Janie Theodore DO SPEC NUM: [id number] RECD: 03/10/24 STATUS: ADRIANNE CYR NUM: [id number] DOE: 03/10/[address]: Janie Theodore DO ENTERED: 03/10/[address] [facility] [address]: Peng Noyola SPEC TYPE: Surgical DEPT: FARHANA LOPEZ ENTERED BY: [id number] RECV BY: [id number] ORDERED: HE, Gross/Micro L3 ORDERED: HE, Gross/Micro [...] cystic duct is compacted with a calculus. Switchboard Operator Assistant sections are submitted in cassette A1. DM Specimen: [id number] Received: 03/10/24 Status: CHRISGelacio Cyr Num: [id number] Spec Type: Surgical Subm Dr: Janie Theodore DO Tissues: A Gallbladder (GALLBLADDER) Procedures: Corky WILLIS/Jaquelin Tirado Patient: Michelle Godinez [id number] (Continued) Specimen: [id number] Received: 03/10/24 (Continued) Signed (signature on file) Tali Martinez MD 03/16/241921 Specimen: [id number] Received: 03/10/24 Status: ADRIANNE Cyr Num: [id number] Spec Type: Surgical Subm Dr: Janie Theodore DO Tissues: A Gallbladder (GALLBLADDER) Procedures: Corky WILLIS/Jaquelin L3 Patient: Michelle Godinez [id number] (Continued) Specimen: [id number] Received: 03/10/24 (Continued) Microscopic Description Microscopic examinations are performed supporting the above interpretation CPT Codes 59184 Specimen: [id number] Received: 03/10/24 Status: ADRIANNE Cyr Num: [id number] Spec Type: Surgical Subm Dr: Janie Theodore DO Tissues: A Gallbladder (GALLBLADDER) Procedures: Corky WILLIS/Jaquelin L3 Patient: Michelle Godinez [id number] (Continued) Signed (signature on file) Tali Martinez MD 03/16/241921 Normal [facility] ALL CBC WITH AUTO DIFFon BASOPHILS ABSOLUTE AUTO 0.1 N [facility] Basophils/100 WBC (Bld) 0.5 % 0.2 - 2.0 % [facility] Eosinophils/100 WBC (Bld) 1.8 % 0.9 - 7.0 % [facility] Erythrocyte distribution width (RBC) [Ratio] 15.2 % High 11.0 - 15.0 % [facility] Hematocrit (Bld) [Volume fraction] 28.8 % Low 36.0 - 48.0 % [facility] Hemoglobin (Bld) [Mass/Vol] 9.1 g/dL Low 12.0 - 16.0 g/dL [facility] IMMATURE GRANULOCYTES ABS AUTO 0.14 High [facility] Immature granulocytes/100 WBC (Bld) 1.1 % High 0.0 - 0.5 % [facility] Interpretation and review of laboratory results Abnormal [facility] LYMPHOCYTES ABSOLUTE AUTO 2.7 [facility] Lymphocytes/100 WBC (Bld) 20.5 % 20.5 - 60.0 % [facility] MCH (RBC) [Entitic mass] 27.2 pg 26.7 - 34.0 pg [facility] MCHC (RBC) [Mass/Vol] 31.6 g/dL 29.9 - 35.2 g/dL [facility] M[facility] ([facility]) [Entitic vol] 86.0 fL 81.0 - 99.0 fL [facility] MONOCYTES ABSOLUTE AUTO 1.1 High N [facility] Monocytes/100 WBC (Bld) 8.8 % 1.7 - 12.0 % [facility] NEUTROPHILS ABSOLUTE AUTO 8.8 High [facility] Neutrophils/100 WBC (Bld) 67.3 % 43.0 - 75.0 % [facility] Platelet mean volume (Bld) [Entitic vol] 9.6 fL 9.5 - 13.5 fL [facility] TB EO # 0.2 [facility] PLT 324 [facility] RBC 3.35 Low [facility] WBC 13.0 High [facility] WITH PLATELET NO DI FFERENTIALon 02-06-2024 Erythrocyte distribution width (RBC) [Ratio] 15.2 % High 11.0 - 15.0 % [facility] Hematocrit (Bld) [Volume fraction] 31.2 % Low 36.0 - 48.0 % [facility] Hemoglobin (Bld) [Mass/Vol] 9.8 g/dL Low 12.0 - 16.0 g/dL [facility] Interpretation and review of laboratory results Abnormal [facility] MCH (RBC) [Entitic mass] 27.3 pg 26.7 - 34.0 pg [facility] MCHC (RBC) [Mass/Vol] 31.4 g/dL 29.9 - 35.2 g/dL [facility] MCV (RBC) [Entitic vol] 86.9 fL 81.0 - 99.0 fL [facility] Platelet mean volume (Bld) [Entitic vol] 9.6 fL 9.5 - 13.5 fL [facility] PLT 342 [facility] RBC 3.59 Low [facility] WBC 10.7 [facility] ALL CBC WITH AUTO DIFFon BASOPHILS ABSOLUTE AUTO 0.1 N [facility] Basophils/100 WBC (Bld) 0.7 % 0.2 - 2.0 % [facility] Eosinophils/100 WBC (Bld) 2.6 % 0.9 - 7.0 % [facility] Erythrocyte distribution width (RBC) [Ratio] 13.4 % 11.0 - 15.0 % [facility] Hematocrit (Bld) [Volume fraction] 39.0 % 36.0 - 48.0 % [facility] Hemoglobin (Bld) [Mass/Vol] 12.8 g/dL 12.0 - 16.0 g/dL [facility] IMMATURE GRANULOCYTES ABS AUTO 0.01 [facility] Immature granulocytes/100 WBC (Bld) 0.1 % 0.0 - 0.5 % [facility] LYMPHOCYTES ABSOLUTE AUTO 2.2 [facility] Lymphocytes/100 WBC (Bld) 26.1 % 20.5 - 60.0 % [facility] MCH (RBC) [Entitic mass] 28.6 pg 26.7 - 34.0 pg [facility] MCHC (RBC) [Mass/Vol] 32.8 g/dL 29.9 - 35.2 g/dL [facility] MCV (RBC) [Entitic vol] 87.2 fL 81.0 - 99.0 fL [facility] MONOCYTES ABSOLUTE AUTO 0.5 N [facility] Monocytes/100 WBC (Bld) 5.7 % 1.7 - 12.0 % [facility] NEUTROPHILS ABSOLUTE AUTO 5.5 [facility] Neutrophils/100 WBC (Bld) 64.8 % 43.0 - 75.0 % [facility] Platelet mean volume (Bld) [Entitic vol] 10.1 fL 9.5 - 13.5 fL [facility] TBH EO # 0.2 [facility] PLT 340 [facility] RBC 4.47 [facility] WBC 8.4 [facility] HCG ( test) Ql (U)o n 07-19-2023 Interpretation and review of laboratory results Abnormal [facility] Preg Test, Ur Positive [facility] Urinalysis macro (dipstick) panel (U)on 07-19-2023 Bilirubin, UA Negative Negative - 4(70) +++ mg/dL [facility] Blood, UA Positive Negative - 50 Anselmo/mcL [facility] Comment on above: moderate Clarity, UA Clear [facility] Color, UA [place] [facility] Glucose, UA Negative Negative - 1999(110) ++++ mg/dL [facility] Interpretation and review of laboratory results Abnormal [facility] Ketones, UA Positive Negative - 160(16) ++++ mg/dL [facility] Comment on above: trace Leukocytes, UA Positive Negative - 500+++ Monik/mcL [facility] Comment on above: small Nitrite, UA Negative Negative - Positive [facility] pH, UA 6.0 5 - 9 [facility] Protein, UA Positive Negative - 1999(20) ++++ mg/dL [facility] Comment on above: 30 Spec Grav, UA 1.030 1 - 1.03 [facility] Urobilinogen, UA 1.0 0.2 - 12 mg/dL [facility] CBC AUTO DIFFon 07-30-2022 BASO # 0.1 103/ul Normal 0.0-0.1 [facility] Comment on above: Performed By: #### U RCX #### [facility] [address] [place] [address] Dr. Caitlin Martinez Basophils/100 WBC (Bld) 1.1 % Normal 0.2-2.0 [facility] Comment on above: Performed By: #### U RCX #### [facility] [address] [place] [address] Dr. Caitlin Martinez EO # 0.3 103/ul Normal 0.0-0.7 [facility] Comment on above: Performed By: #### U RCX #### [facility] [address] [place] [address] Dr. Caitlin Martinez Eosinophils/100 WBC (Bld) 4.7 % Normal 0.9-7.0 [facility] Comment on above: Performed By: #### U RCX #### [facility] [address] [place] [address] Dr. Caitlin Martinez Erythrocyte distribution width (RBC) [Ratio] 14.7 % Normal 11.0-15.0 [facility] Comment on above: Performed By: #### U RCX #### [facility] [address] [place] [address] Dr. Caitlin Martinez Hematocrit (Bld) [Volume fraction] 39.3 % Normal 36.0-48.0 [facility] Comment on above: Performed By: #### U RCX #### [facility] [address] [place] [address] Dr. Caitlin Martinez Hemoglobin (Bld) [Mass/Vol] 12.7 g/dL Normal 12.0-16.0 [facility] Comment on above: Performed By: #### U RCX #### [facility] [address] [place] [address] Dr. Caitlin Martinez IG # 0.02 10e3/ul Normal 0.00-0.03 [facility] Comment on above: Performed By: #### U RCX #### [facility] [address] [place] [address] Dr. Caitlin Martinez IG % 0.3 % Normal 0.0-0.5 [facility] Comment on above: Performed By: #### U RCX #### [facility] [address] [address] [address] Caitlin Martinez LYMPH # 2.5 103/ul Normal 1.2-3.8 [facility] Comment on above: Performed By: #### U RCX #### [facility] [address] [place] [address] Dr. Caitlin Martinez Lymphocytes/100 WBC (Bld) 34.5 % Normal 20.5-60.0 [facility] Comment on above: Performed By: #### U RCX #### [facility] [address] [place] [address] Dr. Caitlin Martinez MANUAL DIFF REQ NO Normal [facility] Comment on above: Performed By: #### U RCX #### [facility] [address] [place] [address] Dr. Caitlin Martinez MCH (RBC) [Entitic mass] 27.3 pg Normal 26.7-34.0 [facility] Comment on above: Performed By: #### U RCX #### [facility] [address] [place] [address] Dr. Caitlin Martinez MCHC (RBC) [Mass/Vol] 32.3 g/dL Normal 29.9-35.2 [facility] Comment on above: Performed By: #### U RCX #### [facility] [address] [place] [address] Dr. Caitlin Martinez MCV (RBC) [Entitic vol] 84.5 fL Normal 81.0-99.0 [facility] Comment on above: Performed By: #### U RCX #### [facility] [address] [place] [address] Dr. Caitlin Martinez MONO # 0.5 103/ul Normal 0.3-0.8 [facility] Comment on above: Performed By: #### U RCX #### [facility] [address] [place] [address] Dr. Caitlin Martinez Monocytes/100 WBC (Bld) 7.3 % Normal 1.7-12.0 [facility] Comment on above: Performed By: #### U RCX #### [facility] [address] [place] [address] Dr. Caitlin Martinez NEUT # 3.8 103/ul Normal 1.4-6.5 [facility] Comment on above: Performed By: #### U RCX #### [facility] [address] [place] [address] Dr. Caitlin Martinez Neutrophils/100 WBC (Bld) 52.1 % Normal 43.0-75.0 [facility] Comment on above: Performed By: #### U RCX #### [facility] [address] [place] [address] Dr. Caitlin Martinez Platelet mean volume (Bld) [Entitic vol] 9.0 fL Critically low 9.5-13.5 [facility] Comment on above: Performed By: #### U RCX #### [facility] [address] [place] [address] Dr. Caitlin Martinez PLT 368 103/ul Normal 150-450 [facility] Comment on above: Performed By: #### U RCX #### [facility] [address] [place] [address] Dr. Caitlin Martinez RBC 4.65 106/ul Normal 4.20-5.40 [facility] Comment on above: Performed By: #### U RCX #### [facility] [address] [place] [address] Dr. Caitlin Martinez WBC 7.2 103/ul Normal 4.0-11.0 [facility] Comment on above: Performed By: #### U RCX #### [facility] [address] [place] [address] Dr. Caitlin Martinez IRONon 07-30-2022 Iron [Mass/Vol] 43.0 ug/dL Critically low 50.0-170.0 [facility] Comment on above: Performed By: #### U RCX #### [facility] [address] [address] [address] Caitlin Martinez PAP ACOG PANEL 2: 22 to 30on 07-30-2022 . . Normal [facility] Comment on above: Performed By: #### U RCX #### [facility] [address] [address] [address] Caitlin Martinez Age Gdln ACOG Testing 22- [facility] Comment on above: Performed By: #### U RCX #### [facility] [address] [address] [address] Caitlin Martinez DIAGNOSIS: Comment [facility] Comment on above: Result Comment: NEGA TIVE FOR INTRAEPITHELIAL LESION OR MALIGNANCY. Performed By: #### U RCX #### [facility] [address] [place] [address] Dr. Caitlin Martinez Methodology: Comment [facility] Comment on above: Result Comment: This liquid based ThinPrep(R) pap test was screened with the use of an image guided system. Performed By: #### U RCX #### [facility] [address] [place] [address] Dr. Caitlin Martinez Note: Comment [facility] Comment [...] . Performed By: #### U RCX #### [facility] [address] [address] [address] Caitlin Martinez Performed by: Comment Normal [facility] Comment on above: Result Comment: Bhavna Cormier, Rd Scientist (ASCP) Performed By: #### U RCX #### [facility] [address] [place] [address] Dr. Caitlin Martinez Reflex Criteria: Comment Normal [facility] Comment on above: Result Comment: The HPV DNA reflex criteria were not met with this specimen result therefore, no HPV testing was performed. . Performed By: #### U RCX #### [facility] [address] [place] [address] Dr. Caitlin Martinez Specimen adequacy: Comment Normal [facility] Comment on above: Result Comment: Sati sfactory for evaluation. Endocervical and/or squamous metaplastic cells (endocervical component) are present. Performed By: #### U RCX #### [facility] [address] [place] [address] Dr. Caitlin Martinez INSULINon 04-19-2022 Insulin 9.1 uIU/mL Normal 2.6-24.9 [facility] Comment on above: Performed By: #### I HORACIO #### [facility] [address] [place] [address] Dr. Caitlin Martinez CBC AUTO DIFFon 04-18-2022 BASO # 0.1 103/ul Normal 0.0-0.1 [facility] Comment on above: Performed By: #### U RCX #### [facility] [address] [place] [address] Dr. Caitlin Martinez Basophils/100 WBC (Bld) 1.0 % Normal 0.2-2.0 [facility] Comment on above: Performed By: #### U RCX #### [facility] [address] [place] [address] Dr. Caitlin Martinez EO # 0.3 103/ul Normal 0.0-0.7 [facility] Comment on above: Performed By: #### U RCX #### [facility] [address] [place] [address] Dr. Caitlin Martinez Eosinophils/100 WBC (Bld) 4.1 % Normal 0.9-7.0 [facility] Comment on above: Performed By: #### U RCX #### [facility] [address] [place] [address] Dr. Caitlin Martinez Erythrocyte distribution width (RBC) [Ratio] 16.0 % Critically high 11.0-15.0 [facility] Comment on above: Performed By: #### U RCX #### [facility] [address] [address] [address] Caitlin Martinez Hematocrit (Bld) [Volume fraction] 35.7 % Critically low 36.0-48.0 [facility] Comment on above: Performed By: #### U RCX #### [facility] [address] [address] [address] Caitlin Martinez Hemoglobin (Bld) [Mass/Vol] 10.9 g/dL Critically low 12.0-16.0 [facility] Comment on above: Performed By: #### U RCX #### [facility] [address] [place] [address] Dr. Caitlin Martinez IG # 0.07 10e3/ul Critically high 0.00-0.03 [facility] Comment on above: Performed By: #### U RCX #### [facility] [address] [place] [address] Dr. Caitlin Martinez IG % 1.0 % Critically high 0.0-0.5 [facility] Comment on above: Performed By: #### U RCX #### [facility] [address] [place] [address] Dr. Caitlin Martinez LYMPH # 2.3 103/ul Normal 1.2-3.8 [facility] Comment on above: Performed By: #### U RCX #### [facility] [address] [place] [address] Dr. Caitlin Martinez Lymphocytes/100 WBC (Bld) 31.4 % Normal 20.5-60.0 [facility] Comment on above: Performed By: #### U RCX #### [facility] [address] [place] [address] Dr. Caitlin Martinez MANUAL DIFF REQ NO Normal [facility] Comment on above: Performed By: #### U RCX #### [facility] [address] [place] [address] Dr. Caitlin Martinez MCH (RBC) [Entitic mass] 24.8 pg Critically low 26.7-34.0 [facility] Comment on above: Performed By: #### U RCX #### [facility] [address] [address] [address] Caitlin Martinez MCHC (RBC) [Mass/Vol] 30.5 g/dL Normal 29.9-35.2 [facility] Comment on above: Performed By: #### U RCX #### [facility] [address] [address] [address] Caitlin Martinez MCV (RBC) [Entitic vol] 81.1 fL Normal 81.0-99.0 [facility] Comment on above: Performed By: #### U RCX #### [facility] [address] [place] [address] Dr. Caitlin Martinez MONO # 0.5 103/ul Normal 0.3-0.8 [facility] Comment on above: Performed By: #### U RCX #### [facility] [address] [place] [address] Dr. Caitlin Martinez Monocytes/100 WBC (Bld) 6.6 % Normal 1.7-12.0 [facility] Comment on above: Performed By: #### U RCX #### [facility] [address] [place] [address] Dr. Caitlin Martinez NEUT # 4.1 103/ul Normal 1.4-6.5 [facility] Comment on above: Performed By: #### U RCX #### [facility] [address] [place] [address] Dr. Caitlin Martinez Neutrophils/100 WBC (Bld) 55.9 % Normal 43.0-75.0 [facility] Comment on above: Performed By: #### U RCX #### [facility] [address] [place] [address] Dr. Caitlin Martinez Platelet mean volume (Bld) [Entitic vol] 9.4 fL Critically low 9.5-13.5 [facility] Comment on above: Performed By: #### U RCX #### [facility] [address] [place] [address] Dr. Caitlin Martinez PLT 369 103/ul Normal 150-450 [facility] Comment on above: Performed By: #### U RCX #### [facility] [address] [address] [address] Caitlin Martinez RBC 4.40 106/ul Normal 4.20-5.40 [facility] Comment on above: Performed By: #### U RCX #### [facility] [address] [address] [address] Caitlin Martinez WBC 7.3 103/ul Normal 4.0-11.0 [facility] Comment on above: Performed By: #### U RCX #### [facility] [address] [address] [address] Caitlin Martinez FREE THYROXINE INDEX T7on FTI 2.20 Normal 1.30-4.50 [facility] Comment on above: Performed By: #### I HORACIO #### [facility] [address] [address] [address] Caitlin Martinez T3U 29.0 % Critically low 30.0-39.0 [facility] Comment on above: Performed By: #### I HORACIO #### [facility] [address] [address] [address] Caitlin Martinez T4 [Mass/Vol] 7.60 ug/dL Normal 4.80-13.90 [facility] Comment on above: Performed By: #### I HORACIO #### [facility] [address] [address] [address] Caitlin Martinez GLYCOHEMOGLOBIN A1Con 2021 ADA RECOMMENDATION SEE BELOW Normal [facility] Comment on above: Result Comment: ADA RECOMMENDED LIMIT 4.0 - 6.0 ADA THERAPEUTIC TARGET < 7.0 ACTION SUGGESTED > 7.0 Performed By: #### U RCX #### [facility] [address] [address] [address] Caitlin Martinez Glucose [Mass/Vol] 97 mg/dL Normal [facility] Comment on above: Performed By: #### U RCX #### [facility] [address] [address] [address] Caitlin Martinez HbA1c (Bld) [Mass fraction] 5.0 % Normal 4.5-6.2 [facility] Comment on above: Performed By: #### U RCX #### [facility] [address] [address] [address] Caitlin Martinez IRONon 04-18-2022 Iron [Mass/Vol] 35.0 ug/dL Critically low 50.0-170.0 [facility] Comment on above: Performed By: #### I HORACIO #### [facility] [address] [address] [address] Caitlin Martinez LIPID PROFILEon 04-18-2022 CHOL-HDL RATIO NORM SEE BELOW Normal [facility] Comment on above: Result Comment: 3.3 - 4.4 LOW RISK 4.4 - 7.1 AVERAGE RISK 7.1 - 11.0 MODERATE RISK >11.0 HIGH RISK Performed By: #### I HORACIO #### [facility] [address] [address] [address] Caitlin Martinez Cholesterol [Mass/Vol] 221 mg/dL Critically high <=200 [facility] Comment on above: Performed By: #### I HORACIO #### [facility] [address] [address] [address] Caitlin Martinez Cholesterol in HDL [Mass/Vol] 67 mg/dL Critically high 40-60 [facility] Comment on above: Performed By: #### I HORACIO #### [facility] [address] [address] [address] Caitlin Martinez Cholesterol in LDL [Mass/Vol] 142.4 mg/dL Normal [facility] Comment on above: Performed By: #### I HORACIO #### [facility] [address] [address] [address] Caitlin Martinez Cholesterol.total/Geeta sterol in HDL [Mass ratio] 3.3 {ratio} Normal [facility] Comment on above: Performed By: #### I HORACIO #### [facility] [address] [address] [address] Caitlin Martinez HDL NORMAL > or = 60 mg/dl - LOW CARDIOVASCULAR RISK <40 mg/dl - HIGH CARDIOVASCULAR RISK Normal [facility] Comment on above: Performed By: #### I HORACIO #### [facility] [address] [address] [address] Caitlin Martinez LDL CALC NORMAL SEE BELOW Normal [facility] Comment on above: Result Comment: <100 mg/dl OPTIMAL 100 - 129 mg/dl NEAR OR ABOVE OPTIMAL 130 - 159 mg/dl BORDERLINE HIGH 160 - 189 mg/dl HIGH >190 mg/dl VERY HIGH Performed By: #### I HORACIO #### [facility] [address] [address] [address] Caitlin Matrinez Triglyceride [Mass/Vol] 58 mg/dL Normal <=150 T [facility] Comment on above: Performed By: #### I HORACIO #### [facility] [address] [address] [address] Caitlin Martinez VLDL CALC 11.6 mg/dL Normal [facility] Comment on above: Performed By: #### I HORACIO #### [facility] [address] [place] [address] Dr. Caitlin Martinez PROF 14(COMP METB)on 022 Albumin [Mass/Vol] 3.8 g/dL Normal 3.4-5.0 [facility] Comment on above: Performed By: #### I HORACIO #### [facility] [address] [place] [address] Dr. Caitlin Martinez Albumin/Globulin [Mass ratio] 1.1 {ratio} Normal [facility] Comment on above: Performed By: #### I HORACIO #### [facility] [address] [address] [address] Caitlin Martinez ALP [Catalytic activity/Vol] 132 U/L Critically high 46-116 [facility] Comment on above: Performed By: #### I HORACIO #### [facility] [address] [place] [address] Dr. Caitlin Martinez ALT [Catalytic activity/Vol] 55 U/L Normal 14-59 [facility] Comment on above: Performed By: #### I HORACIO #### [facility] [address] [address] [address] Caitlin Martinez Anion gap [Moles/Vol] 12.6 mmol/L Normal [facility] Comment on above: Performed By: #### I HORACIO #### [facility] [address] [address] [address] Caitlin Martinez AST [Catalytic activity/Vol] 27 U/L Normal 15-37 [facility] Comment on above: Performed By: #### I HORACIO #### [facility] [address] [address] [address] Caitlin Martinez Bilirubin [Mass/Vol] 0.6 mg/dL Normal 0.2-1.0 [facility] Comment on above: Performed By: #### I HORACIO #### [facility] [address] [address] [address] Caitlin Martinez Calcium [Mass/Vol] 9.1 mg/dL Normal 8.5-10.1 [facility] Comment on above: Performed By: #### I HORACIO #### [facility] [address] [address] [address] Caitlin Martinez Chloride [Moles/Vol] 106 mmol/L Normal 98-107 [facility] Comment on above: Performed By: #### I HORACIO #### [facility] [address] [address] [address] Caitlin Martinez CO2 [Moles/Vol] 26.5 mmol/L Normal 21.0-32.0 [facility] Comment on above: Performed By: #### I HORACIO #### [facility] [address] [address] [address] Caitlin Martinez Creatinine [Mass/Vol] 0.63 mg/dL Normal 0.55-1.02 [facility] Comment on above: Performed By: #### I HORACIO #### [facility] [address] [address] [address] Caitlin Matrinez EGFR-AF CAPE VERDEAN >60 Normal >=60 [facility] Comment on above: Performed By: #### I HORACIO #### [facility] [address] [address] [address] Caitlin Martinez EGFR-NON AF [place] >60 Normal >=60 [facility] Comment on above: Performed By: #### I HORACIO #### [facility] [address] [address] [address] Caitlin Martinez Globulin (S) [Mass/Vol] 3.6 g/dL Normal T [facility] Comment on above: Performed By: #### I HORACIO #### [facility] [address] [address] [address] Caitlin Martinez Glucose [Mass/Vol] 98 mg/dL Normal 74-106 [facility] Comment on above: Performed By: #### I HORACIO #### [facility] [address] [address] [address] Caitlin Martinez Potassium [Moles/Vol] 4.1 mmol/L Normal 3.5-5.1 [facility] Comment on above: Performed By: #### I HORACIO #### [facility] [address] [address] [address] Caitlin Martinez Protein [Mass/Vol] 7.4 g/dL Normal 6.4-8.2 [facility] Comment on above: Performed By: #### I HORACIO #### [facility] [address] [address] [address] Caitlin Martinez Sodium [Moles/Vol] 141 mmol/L Normal 136-145 [facility] Comment on above: Performed By: #### I HORACIO #### [facility] [address] [address] [address] Caitlin Martinez Urea nitrogen [Mass/Vol] 9.0 mg/dL Normal 7.0-18.0 [facility] Comment on above: Performed By: #### I HORACIO #### [facility] [address] [address] [address] Caitlin Martinez Urea nitrogen/Creatinine [Mass ratio] 14.3 mg/mg Normal [facility] Comment on above: Performed By: #### I HORACIO #### [facility] [address] [address] [address] Caitlin Martinez TSHon 04-18-2022 TSH 1.349 uIU/mL Normal 0.358-3.740 [facility] Comment on above: Performed By: #### I HORACIO #### [facility] [address] [place] [address] Dr. Caitlin Martinez ANTIBODY ID PANELon 02-15-20 22 ANTIBODY ID PANEL Antibody ID Anti-D Blood Bank Notes most likely due to Rhogam given on 12/01/21 Normal [facility] Comment on above: Performed By: #### D IRCMB, ABID #### [facility] [address] [place] [address] Dr. Caitlin Martinez CTA CHEST WO W [...] by: PILAR WHEELER Date: 2022-02-10 22:55 Normal [facility] CBC AUTO DIFFon 02-10-2022 BASO # 0.1 103/ul Normal 0.0-0.1 [facility] Comment on above: Performed By: #### C BC #### [facility] [address] [place] [address] Dr. Caitlin Martinez Basophils/100 WBC (Bld) 0.4 % Normal 0.2-2.0 [facility] Comment on above: Performed By: #### C BC #### [facility] [address] [place] [address] Dr. Caitlin Martinez EO # 0.5 103/ul Normal 0.0-0.7 [facility] Comment on above: Performed By: #### C BC #### [facility] [address] [address] [address] Caitlin Martinez Eosinophils/100 WBC (Bld) 4.2 % Normal 0.9-7.0 [facility] Comment on above: Performed By: #### C BC #### [facility] [address] [place] [address] Dr. Caitlin Martinez Erythrocyte distribution width (RBC) [Ratio] 14.7 % Normal 11.0-15.0 [facility] Comment on above: Performed By: #### C BC #### [facility] [address] [place] [address] Dr. Caitlin Martinez Hematocrit (Bld) [Volume fraction] 31.1 % Critically low 36.0-48.0 [facility] Comment on above: Performed By: #### C BC #### [facility] [address] [place] [address] Dr. Caitlin Martinez Hemoglobin (Bld) [Mass/Vol] 9.6 g/dL Critically low 12.0-16.0 [facility] Comment on above: Performed By: #### C BC #### [facility] [address] [place] [address] Dr. Caitlin Martinez IG # 0.28 10e3/ul Critically high 0.00-0.03 [facility] Comment on above: Performed By: #### C BC #### [facility] [address] [place] [address] Dr. Caitlin Martinez IG % 2.3 % Critically high 0.0-0.5 [facility] Comment on above: Performed By: #### C BC #### [facility] [address] [place] [address] Dr. Caitlin Martinez LYMPH # 3.3 103/ul Normal 1.2-3.8 [facility] Comment on above: Performed By: #### C BC #### [facility] [address] [place] [address] Dr. Caitlin Martinez Lymphocytes/100 WBC (Bld) 26.9 % Normal 20.5-60.0 [facility] Comment on above: Performed By: #### C BC #### [facility] [address] [address] [address] Caitlin Martinez MANUAL DIFF REQ NO Normal [facility] Comment on above: Performed By: #### C BC #### [facility] [address] [place] [address] Dr. Caitlin Martinez MCH (RBC) [Entitic mass] 26.2 pg Critically low 26.7-34.0 [facility] Comment on above: Performed By: #### C BC #### [facility] [address] [address] [address] Caitlin Martinez MCHC (RBC) [Mass/Vol] 30.9 g/dL Normal 29.9-35.2 [facility] Comment on above: Performed By: #### C BC #### [facility] [address] [place] [address] Dr. Caitlin Martinez MCV (RBC) [Entitic vol] 84.7 fL Normal 81.0-99.0 [facility] Comment on above: Performed By: #### C BC #### [facility] [address] [place] [address] Dr. Caitlin Martinez MONO # 1.1 103/ul Critically high 0.3-0.8 [facility] Comment on above: Performed By: #### C BC #### [facility] [address] [place] [address] Dr. Caitlin Martinez Monocytes/100 WBC (Bld) 8.7 % Normal 1.7-12.0 [facility] Comment on above: Performed By: #### C BC #### [facility] [address] [place] [address] Dr. Caitlin Martinez NEUT # 7.0 103/ul Critically high 1.4-6.5 [facility] Comment on above: Performed By: #### C BC #### [facility] [address] [place] [address] Dr. Caitlin Martinez Neutrophils/100 WBC (Bld) 57.5 % Normal 43.0-75.0 [facility] Comment on above: Performed By: #### C BC #### [facility] [address] [address] [address] Caitlin Martinez Platelet mean volume (Bld) [Entitic vol] 9.1 fL Critically low 9.5-13.5 [facility] Comment on above: Performed By: #### C BC #### [facility] [address] [address] [address] Caitlin Martinez PLT 437 103/ul Normal 150-450 [facility] Comment on above: Performed By: #### C BC #### [facility] [address] [address] [address] Caitlin Martinez RBC 3.67 106/ul Critically low 4.20-5.40 [facility] Comment on above: Performed By: #### C BC #### [facility] [address] [address] [address] Caitlin Martinez WBC 12.3 103/ul Critically high 4.0-11.0 [facility] Comment on above: Performed By: #### C BC #### [facility] [address] [address] [address] Caitlin Martinez [facility] SARS-CoV-2 (COVID-19) RNA JONATAN+probe Ql (Unsp spec) Not detected Normal NOT DETECTED [facility] Comment on above: Result Comment: When [...] for this test is supported by the [employer]'s declaration [...] used). Performed By: #### C VDTBH #### [facility] [address] [address] [address] Caitlin Martinez PROF 14(COMP METB)on 022 Albumin [Mass/Vol] 2.1 g/dL Critically low 3.4-5.0 [facility] Comment on above: Performed By: #### U RCX #### [facility] [address] [place] [address] Dr. Caitlin Martinez Albumin/Globulin [Mass ratio] 0.5 {ratio} Normal [facility] Comment on above: Performed By: #### U RCX #### [facility] [address] [place] [address] Dr. Caitlin Martinez ALP [Catalytic activity/Vol] 202 U/L Critically high 46-116 [facility] Comment on above: Performed By: #### U RCX #### [facility] [address] [place] [address] Dr. Caitlin Martinez ALT [Catalytic activity/Vol] 20 U/L Normal 14-59 [facility] Comment on above: Performed By: #### U RCX #### [facility] [address] [place] [address] Dr. Caitlin Martinez Anion gap [Moles/Vol] 11.6 mmol/L Normal [facility] Comment on above: Performed By: #### U RCX #### [facility] [address] [place] [address] Dr. Caitlin Martinez AST [Catalytic activity/Vol] 17 U/L Normal 15-37 [facility] Comment on above: Performed By: #### U RCX #### [facility] [address] [place] [address] Dr. Caitlin Martinez Bilirubin [Mass/Vol] 0.3 mg/dL Normal 0.2-1.0 [facility] Comment on above: Performed By: #### U RCX #### [facility] [address] [place] [address] Dr. Caitlin Martinez Calcium [Mass/Vol] 9.2 mg/dL Normal 8.5-10.1 [facility] Comment on above: Performed By: #### U RCX #### [facility] [address] [address] [address] Caitlin Martinez Chloride [Moles/Vol] 104 mmol/L Normal 98-107 [facility] Comment on above: Performed By: #### U RCX #### [facility] [address] [address] [address] Caitlin Martinez CO2 [Moles/Vol] 26.9 mmol/L Normal 21.0-32.0 [facility] Comment on above: Performed By: #### U RCX #### [facility] [address] [address] [address] Caitlin Martinez Creatinine [Mass/Vol] 0.56 mg/dL Normal 0.55-1.02 [facility] Comment on above: Performed By: #### U RCX #### [facility] [address] [address] [address] Caitlin Martinez EGFR-AF [place]DEAN >60 Normal >=60 [facility] Comment on above: Performed By: #### U RCX #### [facility] [address] [address] [address] Caitlin Martinez EGFR-NON AF [place] >60 Normal >=60 [facility] Comment on above: Performed By: #### U RCX #### [facility] [address] [address] [address] Caitlin Martinez Globulin (S) [Mass/Vol] 4.4 g/dL Normal [facility] Comment on above: Performed By: #### U RCX #### [facility] [address] [address] [address] Caitlin Martinez Glucose [Mass/Vol] 108 mg/dL Critically high 74-106 [facility] Comment on above: Performed By: #### U RCX #### [facility] [address] [address] [address] Caitlin Martinez Potassium [Moles/Vol] 3.5 mmol/L Normal 3.5-5.1 [facility] Comment on above: Performed By: #### U RCX #### [facility] [address] [address] [address] Caitlin Martinez Protein [Mass/Vol] 6.5 g/dL Normal 6.4-8.2 [facility] Comment on above: Performed By: #### U RCX #### [facility] [address] [address] [address] Caitlin Martinez Sodium [Moles/Vol] 139 mmol/L Normal 136-145 [facility] Comment on above: Performed By: #### U RCX #### [facility] [address] [address] [address] Caitlin Martinez Urea nitrogen [Mass/Vol] 7.0 mg/dL Normal 7.0-18.0 [facility] Comment on above: Performed By: #### U RCX #### [facility] [address] [place] [address] Dr. Caitlin Martinez Urea nitrogen/Creatinine [Mass ratio] 12.5 mg/mg Normal [facility] Comment on above: Performed By: #### U RCX #### [facility] [address] [place] [address] Dr. Caitlin Martinez TROPONIN, HIGH SENSITIVITYon 02-10-2022 HSTROP <4.0 Normal 4.0-51.3 [facility] Comment on above: Result Comment: CUT- OFF POINTS HAVE BEEN ESTABLISHED BASED ON THE FOURTH UNIVERSAL DEFINITIONS OF MYOCARDIAL INFARCTION. THE UPPER REFERENCE LIMIT (URL) OF TROPONIN, DEFINED THE 99TH PERCENTILE OF cTnI DISTRIBUTION IN A REFERENCE POPULATION, HAS BEEN CONFIRMED THE DECISION THRESHOLD FOR [place] DIAGNOSIS. Performed By: #### U RCX #### [facility] [address] [address] [address] Caitlin Martinez CBC AUTO DIFFon 02-09-2022 BASO # 0.1 103/ul Normal 0.0-0.1 [facility] Comment on above: Performed By: #### U RCX #### [facility] [address] [address] [address] Caitlin Martinez Basophils/100 WBC (Bld) 0.6 % Normal 0.2-2.0 [facility] Comment on above: Performed By: #### U RCX #### [facility] [address] [address] [address] Caitlin Martinez EO # 0.3 103/ul Normal 0.0-0.7 [facility] Comment on above: Performed By: #### U RCX #### [facility] [address] [address] [address] Caitlin Martinez Eosinophils/100 WBC (Bld) 2.3 % Normal 0.9-7.0 [facility] Comment on above: Performed By: #### U RCX #### [facility] [address] [place] [address] Dr. Caitlin Martinez Erythrocyte distribution width (RBC) [Ratio] 14.6 % Normal 11.0-15.0 [facility] Comment on above: Performed By: #### U RCX #### [facility] [address] [place] [address] Dr. Caitlin Martinez Hematocrit (Bld) [Volume fraction] 28.8 % Critically low 36.0-48.0 [facility] Comment on above: Performed By: #### U RCX #### [facility] [address] [place] [address] Dr. Caitlin Martinez Hemoglobin (Bld) [Mass/Vol] 9.0 g/dL Critically low 12.0-16.0 [facility] Comment on above: Performed By: #### U RCX #### [facility] [address] [place] [address] Dr. Caitlin Martinez IG # 0.20 10e3/ul Critically high 0.00-0.03 [facility] Comment on above: Performed By: #### U RCX #### [facility] [address] [address] [address] Caitlin Martinez IG % 1.5 % Critically high 0.0-0.5 [facility] Comment on above: Performed By: #### U RCX #### [facility] [address] [place] [address] Dr. Caitlin Martinez LYMPH # 3.0 103/ul Normal 1.2-3.8 [facility] Comment on above: Performed By: #### U RCX #### [facility] [address] [address] [address] Caitlin Martinez Lymphocytes/100 WBC (Bld) 22.2 % Normal 20.5-60.0 [facility] Comment on above: Performed By: #### U RCX #### [facility] [address] [address] [address] Caitlin Martinez MANUAL DIFF REQ NO Normal [facility] Comment on above: Performed By: #### U RCX #### [facility] [address] [address] [address] Caitlin Martinez MCH (RBC) [Entitic mass] 26.2 pg Critically low 26.7-34.0 [facility] Comment on above: Performed By: #### U RCX #### [facility] [address] [place] [address] Dr. Caitlin Martinez MCHC (RBC) [Mass/Vol] 31.3 g/dL Normal 29.9-35.2 [facility] Comment on above: Performed By: #### U RCX #### [facility] [address] [address] [address] Caitlin Martinez MCV (RBC) [Entitic vol] 83.7 fL Normal 81.0-99.0 [facility] Comment on above: Performed By: #### U RCX #### [facility] [address] [address] [address] Caitlin Martinez MONO # 1.3 103/ul Critically high 0.3-0.8 [facility] Comment on above: Performed By: #### U RCX #### [facility] [address] [address] [address] Caitlin Martinez Monocytes/100 WBC (Bld) 9.8 % Normal 1.7-12.0 [facility] Comment on above: Performed By: #### U RCX #### [facility] [address] [address] [address] Caitlin Martinez NEUT # 8.5 103/ul Critically high 1.4-6.5 [facility] Comment on above: Performed By: #### U RCX #### [facility] [address] [address] [address] Caitlin Martinez Neutrophils/100 WBC (Bld) 63.6 % Normal 43.0-75.0 [facility] Comment on above: Performed By: #### U RCX #### [facility] [address] [address] [address] Caitlin Martinez Platelet mean volume (Bld) [Entitic vol] 9.1 fL Critically low 9.5-13.5 [facility] Comment on above: Performed By: #### U RCX #### [facility] [address] [address] [address] Caitlin Martinez PLT 355 103/ul Normal 150-450 [facility] Comment on above: Performed By: #### U RCX #### [facility] [address] [place] [address] Dr. Caitlin Martinez RBC 3.44 106/ul Critically low 4.20-5.40 [facility] Comment on above: Performed By: #### U RCX #### [facility] [address] [address] [address] Caitlin Martinez WBC 13.3 103/ul Critically high 4.0-11.0 [facility] Comment on above: Performed By: #### U RCX #### [facility] [address] [address] [address] Caitlin Martinez SCREENon 02-09-2022 SCREEN Negative Normal [facility] Comment on above: Performed By: #### F ETSCRN #### [facility] [address] [address] [address] Caitlin Martinez CBC AUTO DIFFon 02-08-2022 BASO # 0.1 103/ul Normal 0.0-0.1 [facility] Comment on above: Performed By: #### U RCX #### [facility] [address] [address] [address] Caitlin Martinez Basophils/100 WBC (Bld) 0.4 % Normal 0.2-2.0 [facility] Comment on above: Performed By: #### U RCX #### [facility] [address] [address] [address] Caitlin Martinez EO # 0.3 103/ul Normal 0.0-0.7 [facility] Comment on above: Performed By: #### U RCX #### [facility] [address] [place] [address] Dr. Caitlin Martinez Eosinophils/100 WBC (Bld) 2.6 % Normal 0.9-7.0 [facility] Comment on above: Performed By: #### U RCX #### [facility] [address] [place] [address] Dr. Caitlin Martinez Erythrocyte distribution width (RBC) [Ratio] 14.7 % Normal 11.0-15.0 [facility] Comment on above: Performed By: #### U RCX #### [facility] [address] [place] [address] Dr. Caitlin Martinez Hematocrit (Bld) [Volume fraction] 30.6 % Critically low 36.0-48.0 [facility] Comment on above: Performed By: #### U RCX #### [facility] [address] [place] [address] Dr. Caitlin Martinez Hemoglobin (Bld) [Mass/Vol] 9.7 g/dL Critically low 12.0-16.0 [facility] Comment on above: Performed By: #### U RCX #### [facility] [address] [place] [address] Dr. Caitlin Martinez IG # 0.15 10e3/ul Critically high 0.00-0.03 [facility] Comment on above: Performed By: #### U RCX #### [facility] [address] [place] [address] Dr. Caitlin Martinez IG % 1.3 % Critically high 0.0-0.5 [facility] Comment on above: Performed By: #### U RCX #### [facility] [address] [place] [address] Dr. Caitlin Martinez LYMPH # 2.8 103/ul Normal 1.2-3.8 [facility] Comment on above: Performed By: #### U RCX #### [facility] [address] [place] [address] Dr. Caitlin Martinez Lymphocytes/100 WBC (Bld) 24.8 % Normal 20.5-60.0 [facility] Comment on above: Performed By: #### U RCX #### [facility] [address] [place] [address] Dr. Caitlin Martinez MANUAL DIFF REQ NO Normal [facility] Comment on above: Performed By: #### U RCX #### [facility] [address] [place] [address] Dr. Caitlin Martinez MCH (RBC) [Entitic mass] 26.6 pg Critically low 26.7-34.0 [facility] Comment on above: Performed By: #### U RCX #### [facility] [address] [place] [address] Dr. Caitlin Martinez MCHC (RBC) [Mass/Vol] 31.7 g/dL Normal 29.9-35.2 [facility] Comment on above: Performed By: #### U RCX #### [facility] [address] [place] [address] Dr. Caitlin Martinez MCV (RBC) [Entitic vol] 83.8 fL Normal 81.0-99.0 [facility] Comment on above: Performed By: #### U RCX #### [facility] [address] [place] [address] Dr. Caitlin Martinez MONO # 1.0 103/ul Critically high 0.3-0.8 [facility] Comment on above: Performed By: #### U RCX #### [facility] [address] [place] [address] Dr. Caitlin Martinez Monocytes/100 WBC (Bld) 8.7 % Normal 1.7-12.0 [facility] Comment on above: Performed By: #### U RCX #### [facility] [address] [place] [address] Dr. Caitlin Martinez NEUT # 7.0 103/ul Critically high 1.4-6.5 [facility] Comment on above: Performed By: #### U RCX #### [facility] [address] [place] [address] Dr. Caitlin Martinez Neutrophils/100 WBC (Bld) 62.2 % Normal 43.0-75.0 [facility] Comment on above: Performed By: #### U RCX #### [facility] [address] [place] [address] Dr. Caitlin Martinez Platelet mean volume (Bld) [Entitic vol] 9.0 fL Critically low 9.5-13.5 [facility] Comment on above: Performed By: #### U RCX #### [facility] [address] [place] [address] Dr. Catilin Martinez PLT 373 103/ul Normal 150-450 [facility] Comment on above: Performed By: #### U RCX #### [facility] [address] [place] [address] Dr. Caitlin Martinez RBC 3.65 106/ul Critically low 4.20-5.40 [facility] Comment on above: Performed By: #### U RCX #### [facility] [address] [place] [address] Dr. Caitlin Martinez WBC 11.3 103/ul Critically high 4.0-11.0 [facility] Comment on above: Performed By: #### U RCX #### [facility] [address] [place] [address] Dr. Caitlin Martinez Covid-19 PCR ([facility])on 01-16 SARS-CoV-2 (COVID-19) RNA JONATAN+probe Ql (Unsp spec) Not detected Normal NOT DETECTED [facility] Comment on above: Result Comment: When [...] for this test is supported by the [place] of Health and Human Service's declaration that [...] used). Performed By: #### C BC #### [facility] [address] [place] [address] Dr. Caitlin Martinez DIRECT COOMBSon 02-08-2022 DIRECT EDWINA Negative Normal [facility] Comment on above: Performed By: #### D IRCMB, ABID #### [facility] [address] [place] [address] Dr. Caitlin Martinez DRUG SCREEN RAPID (URINE)on 02-08-2022 AMP Negative Normal NEGATIVE [facility] Comment on above: Performed By: #### C BC #### [facility] [address] [place] [address] Dr. Caitlin Martinez BAR Negative Normal NEGATIVE [facility] Comment on above: Performed By: #### C BC #### [facility] [address] [place] [address] Dr. Caitlin Martinez BUP Negative Normal NEGATIVE [facility] Comment on above: Performed By: #### C BC #### [facility] [address] [place] [address] Dr. Caitlin Martinez BZO Negative Normal NEGATIVE [facility] Comment on above: Performed By: #### C BC #### [facility] [address] [place] [address] Dr. Caitlin Martinez JEANNA Negative Normal NEGATIVE [facility] Comment on above: Performed By: #### C BC #### [facility] [address] [place] [address] Dr. Caitlin Martinez CUT-OFFS SEE BELOW Normal [facility] Comment on above: Result Comment: AMP [...] ng/mL Performed By: #### C BC #### [facility] [address] [place] [address] Dr. Caitlin Martinez DRUG CUT HEADER DRUG CLASS TEST SYSTEM CUT-OFF CONCENTRATIONS ARE FOLLOWS: Normal [facility] Comment on above: Performed By: #### C BC #### [facility] [address] [place] [address] Dr. Caitlin Martinez mAMP Negative Normal NEGATIVE [facility] Comment on above: Performed By: #### C BC #### [facility] [address] [place] [address] Dr. Caitlin Martinez MTD Negative Normal NEGATIVE [facility] Comment on above: Performed By: #### C BC #### [facility] [address] [place] [address] Dr. Caitlin Martinez OPI Negative Normal NEGATIVE [facility] Comment on above: Performed By: #### C BC #### [facility] [address] [place] [address] Dr. Caitlin Martinez OXY Negative Normal NEGATIVE [facility] Comment on above: Performed By: #### C BC #### [facility] [address] [place] [address] Dr. Caitlin Martinez PCP Negative Normal NEGATIVE [facility] Comment on above: Performed By: #### C BC #### [facility] [address] [place] [address] Dr. Caitlin Martinez PPX Negative Normal NEGATIVE [facility] Comment on above: Performed By: #### C BC #### [facility] [address] [place] [address] Dr. Caitlin Martinez TCA Negative Normal NEGATIVE [facility] Comment on above: Performed By: #### C BC #### [facility] [address] [address] [address] Caitlin Martinez THC Negative Normal NEGATIVE [facility] Comment on above: Performed By: #### C BC #### [facility] [address] [place] [address] Dr. Caitlin Martinez TYPE AND SCREENon 02-08-2022 TYPE AND SCREEN Negative Normal [facility] Comment on above: Performed By: #### I HORACIO #### [facility] [address] [place] [address] Dr. Caitlin Martinez US PREG BIOPHY W [...] DAVID BLACKMON Date: 2022-02-05 16:28 Normal [facility] AMNISUREon 01-25-2022 AMNISURE Negative Normal NEGATIVE [facility] Comment on above: Performed By: #### A MNI #### [facility] [address] [place] [address] Dr. Caitlin Martinez CULTURE URINEon 01-25-2022 CULTURE URINE Culture Observations: No growth Normal [facility] Comment on above: Performed By: #### U RCX #### [facility] [address] [place] [address] Dr. Caitlin Martinez UA (CLEAN/CATCH) BLENDING COORDINATOR/MICRO I F IND.on 01-25-2022 Bilirubin Ql (U) Negative Normal NEGATIVE [facility] Comment on above: Performed By: #### C VDTBH #### [facility] [address] [place] [address] Dr. Caitlin Martinez Clarity (U) SL CLOUDY Abnormal CLEAR [facility] Comment on above: Performed By: #### C VDTBH #### [facility] [address] [place] [address] Dr. Caitiln Martinez Color (U) LT. YELLOW Normal YELLOW [facility] Comment on above: Performed By: #### C VDTBH #### [facility] [address] [place] [address] Dr. Caitlin Martinez Glucose Ql (U) Negative Normal NEGATIVE [facility] Comment on above: Performed By: #### C VDTBH #### [facility] [address] [place] [address] Dr. Caitlin Martinez Hemoglobin Ql (U) TRACE-INTACT Abnormal NEGATIVE [facility] Comment on above: Performed By: #### C VDTBH #### [facility] [address] [place] [address] Dr. Caitlin Martinez Ketones Ql (U) Negative Normal NEGATIVE [facility] Comment on above: Performed By: #### C VDTBH #### [facility] [address] [place] [address] Dr. Caitlin Martinez LEUKOCYTES TRACE Abnormal NEGATIVE [facility] Comment on above: Performed By: #### C VDTBH #### [facility] [address] [place] [address] Dr. Caitlin Martinez Nitrite Ql (U) Negative Normal NEGATIVE [facility] Comment on above: Performed By: #### C VDTBH #### [facility] [address] [place] [address] Dr. Caitlin Martinez pH (U) 6.5 [pH] Normal 5-9 [facility] Comment on above: Performed By: #### C VDTBH #### [facility] [address] [place] [address] Dr. Caitlin Martinez SPEC GRAVITY 1.020 Normal 1.005-<=1.02 5 [facility] Comment on above: Performed By: #### C VDTBH #### [facility] [address] [place] [address] Dr. Caitlin Martinez UA PROTEIN Negative Normal NEGATIVE/ TRACE [facility] Comment on above: Performed By: #### C VDTBH #### [facility] [address] [place] [address] Dr. Caitlin Martinez UR MICRO IND INDICATED Normal [facility] Comment on above: Performed By: #### C VDTBH #### [facility] [address] [place] [address] Dr. Caitlin Martinez Urobilinogen Qn (U) 0.2 {Barbara'U}/dL Normal 0.2 - 1. 0 [facility] Comment on above: Performed By: #### C VDTBH #### [facility] [address] [place] [address] Dr. Caitlin Martinez URINE MICROSCOPIC ONLYon BACTERIA MODERATE Abnormal NONE SEEN [facility] Comment on above: Performed By: #### C VDTBH #### [facility] [address] [place] [address] Dr. Caitlin Martinez Bacteria identified Cx Nom (U) INDICATED Normal [facility] Comment on above: Performed By: #### C VDTBH #### [facility] [address] [place] [address] Dr. Caitlin Martinez CAST NONE SEEN Normal NONE SEEN [facility] Comment on above: Performed By: #### C VDTBH #### [facility] [address] [place] [address] Dr. Caitlin Martinez Crystals LM Nom (Urine sed) NONE SEEN Normal NONE SEEN [facility] Comment on above: Performed By: #### C VDTBH #### [facility] [address] [place] [address] Dr. Caitlin Martinez Epithelial cells LM Ql (Urine sed) FEW Abnormal NONE SEEN /RARE [facility] Comment on above: Performed By: #### C VDTBH #### [facility] [address] [place] [address] Dr. Caitlin Martinez MUCOUS TRACE Abnormal NONE SEEN [facility] Comment on above: Performed By: #### C VDTBH #### [facility] [address] [place] [address] Dr. Caitlin Martinez RBC 2-5 Abnormal 0-2 [facility] Comment on above: Performed By: #### C VDTBH #### [facility] [address] [place] [address] Dr. Caitlin Martinez WBC 0-2 Abnormal NONE SEEN [facility] Comment on above: Performed By: #### C VDTBH #### [facility] [address] [place] [address] Dr. Caitlin Martinez AMYLASEon 01-16-2022 Amylase [Catalytic activity/Vol] 49 U/L Normal 25-115 [facility] Comment on above: Performed By: #### C VDTBH #### [facility] [address] [place] [address] Dr. Caitlin Martinez BUNon 01-16-2022 Urea nitrogen [Mass/Vol] 3.0 mg/dL Critically low 7.0-18.0 [facility] Comment on above: Performed By: #### C BC #### [facility] [address] [place] [address] Dr. Caitlin Martinez CBC AUTO DIFFon 01-16-2022 BASO # 0.1 103/ul Normal 0.0-0.1 [facility] Comment on above: Performed By: #### U RCX #### [facility] [address] [place] [address] Dr. Caitlin Martinez Basophils/100 WBC (Bld) 0.6 % Normal 0.2-2.0 [facility] Comment on above: Performed By: #### U RCX #### [facility] [address] [place] [address] Dr. Caitlin Martinez EO # 0.3 103/ul Normal 0.0-0.7 [facility] Comment on above: Performed By: #### U RCX #### [facility] [address] [place] [address] Dr. Cailtin Martinez Eosinophils/100 WBC (Bld) 2.6 % Normal 0.9-7.0 [facility] Comment on above: Performed By: #### U RCX #### [facility] [address] [place] [address] Dr. Caitlin Martinez Erythrocyte distribution width (RBC) [Ratio] 14.4 % Normal 11.0-15.0 [facility] Comment on above: Performed By: #### U RCX #### [facility] [address] [place] [address] Dr. Caitlin Martinez Hematocrit (Bld) [Volume fraction] 28.4 % Critically low 36.0-48.0 [facility] Comment on above: Performed By: #### U RCX #### [facility] [address] [place] [address] Dr. Caitlin Martinez Hemoglobin (Bld) [Mass/Vol] 9.0 g/dL Critically low 12.0-16.0 [facility] Comment on above: Performed By: #### U RCX #### [facility] [address] [place] [address] Dr. Caitlin Martinez IG # 0.11 10e3/ul Critically high 0.00-0.03 [facility] Comment on above: Performed By: #### U RCX #### [facility] [address] [place] [address] Dr. Caitlin Martinez IG % 1.1 % Critically high 0.0-0.5 [facility] Comment on above: Performed By: #### U RCX #### [facility] [address] [place] [address] Dr. Caitlin Martinez LYMPH # 2.2 103/ul Normal 1.2-3.8 [facility] Comment on above: Performed By: #### U RCX #### [facility] [address] [place] [address] Dr. Caitlin Martinez Lymphocytes/100 WBC (Bld) 21.0 % Normal 20.5-60.0 [facility] Comment on above: Performed By: #### U RCX #### [facility] [address] [place] [address] Dr. Caitlin Martinez MANUAL DIFF REQ NO Normal [facility] Comment on above: Performed By: #### U RCX #### [facility] [address] [place] [address] Dr. Caitlin Martinez MCH (RBC) [Entitic mass] 28.2 pg Normal 26.7-34.0 [facility] Comment on above: Performed By: #### U RCX #### [facility] [address] [address] [address] Caitlin Martinez MCHC (RBC) [Mass/Vol] 31.7 g/dL Normal 29.9-35.2 [facility] Comment on above: Performed By: #### U RCX #### [facility] [address] [address] [address] Caitlin Martinez MCV (RBC) [Entitic vol] 89.0 fL Normal 81.0-99.0 [facility] Comment on above: Performed By: #### U RCX #### [facility] [address] [place] [address] Dr. Caitlin Martinez MONO # 0.9 103/ul Critically high 0.3-0.8 [facility] Comment on above: Performed By: #### U RCX #### [facility] [address] [place] [address] Dr. Caitlin Martinez Monocytes/100 WBC (Bld) 8.9 % Normal 1.7-12.0 [facility] Comment on above: Performed By: #### U RCX #### [facility] [address] [place] [address] Dr. Caitlin Martinez NEUT # 6.8 103/ul Critically high 1.4-6.5 [facility] Comment on above: Performed By: #### U RCX #### [facility] [address] [place] [address] Dr. Caitlin Martinez Neutrophils/100 WBC (Bld) 65.8 % Normal 43.0-75.0 [facility] Comment on above: Performed By: #### U RCX #### [facility] [address] [place] [address] Dr. Caitlin Martinez Platelet mean volume (Bld) [Entitic vol] 8.6 fL Critically low 9.5-13.5 [facility] Comment on above: Performed By: #### U RCX #### [facility] [address] [address] [address] Caitlin Martinez PLT 322 103/ul Normal 150-450 [facility] Comment on above: Performed By: #### U RCX #### [facility] [address] [place] [address] Dr. Caitlin Martinez RBC 3.19 106/ul Critically low 4.20-5.40 [facility] Comment on above: Performed By: #### U RCX #### [facility] [address] [address] [address] Caitlin Martinez WBC 10.3 103/ul Normal 4.0-11.0 [facility] Comment on above: Performed By: #### U RCX #### [facility] [address] [place] [address] Dr. Caitlin Martinez CREATININEon 01-16-2022 Creatinine [Mass/Vol] 0.55 mg/dL Normal 0.55-1.02 [facility] Comment on above: Performed By: #### C VDTBH #### [facility] [address] [place] [address] Dr. Caitlin Martinez EGFR-AF [place] >60 Normal >=60 [facility] Comment on above: Performed By: #### C VDTBH #### [facility] [address] [place] [address] Dr. Caitlin Martinez EGFR-NON AF [place] >60 Normal >=60 [facility] Comment on above: Performed By: #### C VDTBH #### [facility] [address] [place] [address] Dr. Caitlin Martinez ELECTROLYTESon 01-16-2022 Anion gap [Moles/Vol] 13.6 mmol/L Normal [facility] Comment on above: Performed By: #### C VDTBH #### [facility] [address] [place] [address] Dr. Caitlin Martinez Chloride [Moles/Vol] 106 mmol/L Normal 98-107 [facility] Comment on above: Performed By: #### C VDTBH #### [facility] [address] [place] [address] Dr. Caitlin Martinez CO2 [Moles/Vol] 22.9 mmol/L Normal 21.0-32.0 [facility] Comment on above: Performed By: #### C VDTBH #### [facility] [address] [place] [address] Dr. Caitlin Martinez Potassium [Moles/Vol] 3.5 mmol/L Normal 3.5-5.1 [facility] Comment on above: Performed By: #### C VDTBH #### [facility] [address] [place] [address] Dr. Caitlin Martinez Sodium [Moles/Vol] 139 mmol/L Normal 136-145 [facility] Comment on above: Performed By: #### C VDTBH #### [facility] [address] [place] [address] Dr. Caitlin Martinez LIPASEon 01-16-2022 Lipase [Catalytic activity/Vol] 66.0 U/L Critically low 73.0-393.0 [facility] Comment on above: Performed By: #### C BC #### [facility] [address] [place] [address] Dr. Caitlin Martinez SGOTon 01-16-2022 AST [Catalytic activity/Vol] 12 U/L Critically low 15-37 [facility] Comment on above: Performed By: #### C VDTBH #### [facility] [address] [place] [address] Dr. Caitlin Martinez SGPTon 01-16-2022 ALT [Catalytic activity/Vol] 9 U/L Critically low 14-59 [facility] Comment on above: Performed By: #### C VDTBH #### [facility] [address] [place] [address] Dr. Caitlin Martinez CBC AUTO DIFFon 01-15-2022 BASO # 0.1 103/ul Normal 0.0-0.1 [facility] Comment on above: Performed By: #### C VDTBH #### [facility] [address] [place] [address] Dr. Caitlin Martinez Basophils/100 WBC (Bld) 0.4 % Normal 0.2-2.0 [facility] Comment on above: Performed By: #### C VDTBH #### [facility] [address] [place] [address] Dr. Caitlin Martinez EO # 0.2 103/ul Normal 0.0-0.7 [facility] Comment on above: Performed By: #### C VDTBH #### [facility] [address] [place] [address] Dr. Caitlin Martinez Eosinophils/100 WBC (Bld) 1.4 % Normal 0.9-7.0 [facility] Comment on above: Performed By: #### C VDTBH #### [facility] [address] [place] [address] Dr. Caitlin Martinez Erythrocyte distribution width (RBC) [Ratio] 14.1 % Normal 11.0-15.0 [facility] Comment on above: Performed By: #### C VDTBH #### [facility] [address] [place] [address] Dr. Caitlin Martinez Hematocrit (Bld) [Volume fraction] 28.4 % Critically low 36.0-48.0 [facility] Comment on above: Performed By: #### C VDTBH #### [facility] [address] [place] [address] Dr. Caitlin Martinez Hemoglobin (Bld) [Mass/Vol] 9.0 g/dL Critically low 12.0-16.0 [facility] Comment on above: Performed By: #### C VDTBH #### [facility] [address] [place] [address] Dr. Caitlin Martinez IG # 0.18 10e3/ul Critically high 0.00-0.03 [facility] Comment on above: Performed By: #### C VDTBH #### [facility] [address] [place] [address] Dr. Caitlin Martinez IG % 1.3 % Critically high 0.0-0.5 [facility] Comment on above: Performed By: #### C VDTBH #### [facility] [address] [place] [address] Dr. Caitlin Martinez LYMPH # 2.4 103/ul Normal 1.2-3.8 [facility] Comment on above: Performed By: #### C VDTBH #### [facility] [address] [place] [address] Dr. Caitlin Martinez Lymphocytes/100 WBC (Bld) 16.8 % Critically low 20.5-60.0 [facility] Comment on above: Performed By: #### C VDTBH #### [facility] [address] [place] [address] Dr. Caitlin Martinez MANUAL DIFF REQ NO Normal [facility] Comment on above: Performed By: #### C VDTBH #### [facility] [address] [place] [address] Dr. Caitlin Martinez MCH (RBC) [Entitic mass] 27.9 pg Normal 26.7-34.0 [facility] Comment on above: Performed By: #### C VDTBH #### [facility] [address] [place] [address] Dr. Caitlin Martinez MCHC (RBC) [Mass/Vol] 31.7 g/dL Normal 29.9-35.2 [facility] Comment on above: Performed By: #### C VDTBH #### [facility] [address] [place] [address] Dr. Caitlin Martinez MCV (RBC) [Entitic vol] 87.9 fL Normal 81.0-99.0 [facility] Comment on above: Performed By: #### C VDTBH #### [facility] [address] [place] [address] Dr. Caitlin Martinez MONO # 0.9 103/ul Critically high 0.3-0.8 [facility] Comment on above: Performed By: #### C VDTBH #### [facility] [address] [place] [address] Dr. Caitlin Martinez Monocytes/100 WBC (Bld) 6.7 % Normal 1.7-12.0 [facility] Comment on above: Performed By: #### C VDTBH #### [facility] [address] [place] [address] Dr. Caitlin Martinez NEUT # 10.3 103/ul Critically high 1.4-6.5 [facility] Comment on above: Performed By: #### C VDTBH #### [facility] [address] [place] [address] Dr. Caitlin Martinez Neutrophils/100 WBC (Bld) 73.4 % Normal 43.0-75.0 [facility] Comment on above: Performed By: #### C VDTBH #### [facility] [address] [place] [address] Dr. Caitlin Martinez Platelet mean volume (Bld) [Entitic vol] 9.0 fL Critically low 9.5-13.5 [facility] Comment on above: Performed By: #### C VDTBH #### [facility] [address] [place] [address] Dr. Caitlin Martinez PLT 318 103/ul Normal 150-450 [facility] Comment on above: Performed By: #### C VDTBH #### [facility] [address] [place] [address] Dr. Caitlin Martinez RBC 3.23 106/ul Critically low 4.20-5.40 [facility] Comment on above: Performed By: #### C VDTBH #### [facility] [address] [place] [address] Dr. Caitlin Martinez WBC 14.0 103/ul Critically high 4.0-11.0 [facility] Comment on above: Performed By: #### C VDTBH #### [facility] [address] [place] [address] ABD/PELVIS WO CONon [...] DAVID BLACKMON Date: 2022-01-15 16:31 Normal [facility] CULTURE URINEon 01-15-2022 CULTURE URINE Culture Observations: LIGHT GROWTH OF MIXED GENITAL COSME. NO POTENTIAL PATHOGENS SEEN. Normal [facility] Comment on above: Performed By: #### U RCX #### [facility] [address] [place] [address] Dr. Caitlin Martinez UA (CLEAN/CATCH) BLENDING COORDINATOR/MICRO I F IND.on 01-15-2022 Bilirubin Ql (U) Negative Normal NEGATIVE [facility] Comment on above: Performed By: #### C BC #### [facility] [address] [place] [address] Dr. Caitlin Martinez Clarity (U) CLEAR Normal CLEAR [facility] Comment on above: Performed By: #### C BC #### [facility] [address] [place] [address] Dr. Caitlin Martinez Color (U) LT. YELLOW Normal YELLOW [facility] Comment on above: Performed By: #### C BC #### [facility] [address] [place] [address] Dr. Caitlin Martinez Glucose Ql (U) Negative Normal NEGATIVE [facility] Comment on above: Performed By: #### C BC #### [facility] [address] [place] [address] Dr. Caitlin Martinez Hemoglobin Ql (U) Negative Normal NEGATIVE [facility] Comment on above: Performed By: #### C BC #### [facility] [address] [place] [address] Dr. Caitlin Martinez Ketones Ql (U) Negative Normal NEGATIVE [facility] Comment on above: Performed By: #### C BC #### [facility] [address] [place] [address] Dr. Caitlin Martinez LEUKOCYTES TRACE Abnormal NEGATIVE [facility] Comment on above: Performed By: #### C BC #### [facility] [address] [place] [address] Dr. Caitlin Martinez Nitrite Ql (U) Negative Normal NEGATIVE [facility] Comment on above: Performed By: #### C BC #### [facility] [address] [place] [address] Dr. Caitlin Martinez pH (U) 7.0 [pH] Normal 5-9 [facility] Comment on above: Performed By: #### C BC #### [facility] [address] [place] [address] Dr. Caitlin Martinez SPEC GRAVITY 1.010 Normal 1.005-<=1.02 5 [facility] Comment on above: Performed By: #### C BC #### [facility] [address] [place] [address] Dr. Caitlin Martinez UA PROTEIN Negative Normal NEGATIVE/ TRACE [facility] Comment on above: Performed By: #### C BC #### [facility] [address] [place] [address] Dr. Caitlin Martinez UR MICRO IND INDICATED Normal [facility] Comment on above: Performed By: #### C BC #### [facility] [address] [place] [address] Dr. Caitlin Martinez Urobilinogen Qn (U) 0.2 {Barbara'U}/dL Normal 0.2 - 1. 0 [facility] Comment on above: Performed By: #### C BC #### [facility] [address] [place] [address] Dr. Caitlin Martinez URINE MICROSCOPIC ONLYon BACTERIA MODERATE Abnormal NONE SEEN [facility] Comment on above: Performed By: #### C BC #### [facility] [address] [place] [address] Dr. Caitlin Martinez Bacteria identified Cx Nom (U) INDICATED Normal [facility] Comment on above: Performed By: #### C BC #### [facility] [address] [place] [address] Dr. Caitlin Martinez CAST NONE SEEN Normal NONE SEEN [facility] Comment on above: Performed By: #### C BC #### [facility] [address] [place] [address] Dr. Caitlin Martinez Crystals LM Nom (Urine sed) NONE SEEN Normal NONE SEEN [facility] Comment on above: Performed By: #### C BC #### [facility] [address] [place] [address] Dr. Caitlin Martinez Epithelial cells LM Ql (Urine sed) MODERATE Abnormal NONE SEEN /RARE [facility] Comment on above: Performed By: #### C BC #### [facility] [address] [place] [address] Dr. Caitlin Martinez MUCOUS NONE SEEN Normal NONE SEEN [facility] Comment on above: Performed By: #### C BC #### [facility] [address] [place] [address] Dr. Caitlin Martinez RBC NONE SEEN Abnormal 0-2 [facility] Comment on above: Performed By: #### C BC #### [facility] [address] [place] [address] Dr. Caitlin Martinez WBC 2-5 Abnormal NONE SEEN [facility] Comment on above: Performed By: #### C BC #### [facility] [address] [place] [address] Dr. Caitlin Martinez US APPENDIXon 01-15-2022 US [...] DAVID BLACKMON Date: 2022-01-15 14:14 Normal [facility] US PREG GROWTHon 01-15-2022 US PREG [...] DAVID BLACKMON Date: 2022-01-15 10:59 Normal [facility] US PREG PLACENTAon US PREG PLACENTA [...] DAVID BLACKMON Date: 2022-01-15 10:57 Normal [facility] UA (CLEAN/CATCH) BLENDING COORDINATOR/MICRO I F IND.on 12-29-2021 Bilirubin Ql (U) Negative Normal NEGATIVE [facility] Comment on above: Performed By: #### C BC #### [facility] [address] [place] [address] Dr. Caitlin Martinez Clarity (U) CLEAR Normal CLEAR [facility] Comment on above: Performed By: #### C BC #### [facility] [address] [place] [address] Dr. Caitlin Martinez Color (U) LT. YELLOW Normal YELLOW [facility] Comment on above: Performed By: #### C BC #### [facility] [address] [place] [address] Dr. Caitlin Martinez Glucose Ql (U) Negative Normal NEGATIVE [facility] Comment on above: Performed By: #### C BC #### [facility] [address] [place] [address] Dr. Caitlin Martinez Hemoglobin Ql (U) Negative Normal NEGATIVE [facility] Comment on above: Performed By: #### C BC #### [facility] [address] [place] [address] Dr. Caitlin Martinez Ketones Ql (U) Negative Normal NEGATIVE [facility] Comment on above: Performed By: #### C BC #### [facility] [address] [place] [address] Dr. Caitlin Martinez LEUKOCYTES Negative Normal NEGATIVE [facility] Comment on above: Performed By: #### C BC #### [facility] [address] [place] [address] Dr. Caitlin Martinez Nitrite Ql (U) Negative Normal NEGATIVE [facility] Comment on above: Performed By: #### C BC #### [facility] [address] [place] [address] Dr. Caitlin Martinez pH (U) 6.5 [pH] Normal 5-9 [facility] Comment on above: Performed By: #### C BC #### [facility] [address] [place] [address] Dr. Caitlin Martinez SPEC GRAVITY 1.020 Normal 1.005-<=1.02 5 [facility] Comment on above: Performed By: #### C BC #### [facility] [address] [place] [address] Dr. Caitlin Martinez UA PROTEIN Negative Normal NEGATIVE/ TRACE [facility] Comment on above: Performed By: #### C BC #### [facility] [address] [place] [address] Dr. Caitlin Martinez UR MICRO IND NOT INDICATED Normal [facility] Comment on above: Performed By: #### C BC #### [facility] [address] [place] [address] Dr. Caitlin Martinez Urobilinogen Qn (U) 1.0 {Barbara'U}/dL Normal 0.2 - 1. 0 [facility] Comment on above: Performed By: #### C BC #### [facility] [address] [place] [address] Dr. Caitlin Martinez US PREG CERVICAL LENGTHon [...] KIRK OATES Date: 2021-12-29 15:53 Normal [facility] UA (CLEAN/CATCH) BLENDING COORDINATOR/MICRO I F IND.on 12-18-2021 Bilirubin Ql (U) Negative Normal NEGATIVE [facility] Comment on above: Performed By: #### C BC #### [facility] [address] [place] [address] Dr. Caitlin Martinez Clarity (U) CLEAR Normal CLEAR [facility] Comment on above: Performed By: #### C BC #### [facility] [address] [place] [address] Dr. Caitlin Martinez Color (U) YELLOW Normal YELLOW [facility] Comment on above: Performed By: #### C BC #### [facility] [address] [place] [address] Dr. Caitlin Martinez Glucose Ql (U) Negative Normal NEGATIVE [facility] Comment on above: Performed By: #### C BC #### [facility] [address] [place] [address] Dr. Caitlin Martinez Hemoglobin Ql (U) Negative Normal NEGATIVE [facility] Comment on above: Performed By: #### C BC #### [facility] [address] [place] [address] Dr. Caitlin Martinez Ketones Ql (U) TRACE Abnormal NEGATIVE [facility] Comment on above: Performed By: #### C BC #### [facility] [address] [place] [address] Dr. Caitlin Martinez LEUKOCYTES Negative Normal NEGATIVE [facility] Comment on above: Performed By: #### C BC #### [facility] [address] [place] [address] Dr. Caitlin Martinez Nitrite Ql (U) Negative Normal NEGATIVE [facility] Comment on above: Performed By: #### C BC #### [facility] [address] [place] [address] Dr. Caitlin Martinez pH (U) 6.0 [pH] Normal 5-9 [facility] Comment on above: Performed By: #### C BC #### [facility] [address] [place] [address] Dr. Caitlin Martinez SPEC GRAVITY 1.025 Normal 1.005-<=1.02 5 [facility] Comment on above: Performed By: #### C BC #### [facility] [address] [place] [address] Dr. Caitlin Martinez UA PROTEIN Negative Normal NEGATIVE/ TRACE [facility] Comment on above: Performed By: #### C BC #### [facility] [address] [place] [address] Dr. Caitlin Martinez UR MICRO IND NOT INDICATED Normal [facility] Comment on above: Performed By: #### C BC #### [facility] [address] [place] [address] Dr. Caitlin Martinez Urobilinogen Qn (U) 4 {Barbara'U}/dL Abnormal 0.2 - 1.0 [facility] Comment on above: Performed By: #### C BC #### [facility] [address] [place] [address] Dr. Caitlin Martinez RHOGAMon 11-28-2021 RHOGAM Status Information Issued Quantity 1 Product ID Rh Immune Globulin Lot Number [id number] Issue Date/Time [id number] Normal [facility] Comment on above: Performed By: #### I HORACIO #### [facility] [address] [place] [address] Dr. Caitlin Martinez TYPE AND SCREENon 11-27-2021 TYPE AND SCREEN Negative Normal [facility] Comment on above: Performed By: #### T NS #### [facility] [address] [place] [address] Dr. Caitlin Martinez CULTURE URINEon 11-23-2021 CULTURE URINE Culture Observations: No growth Normal [facility] Comment on above: Performed By: #### I HORACIO #### [facility] [address] [place] [address] Dr. Caitlin Martinez UA (CLEAN/CATCH) BLENDING COORDINATOR/MICRO I F IND.on 11-23-2021 Bilirubin Ql (U) Negative Normal NEGATIVE [facility] Comment on above: Performed By: #### U RCX #### [facility] [address] [place] [address] Dr. Caitlin Martinez Clarity (U) CLEAR Normal CLEAR [facility] Comment on above: Performed By: #### U RCX #### [facility] [address] [place] [address] Dr. Caitlin Martinez Color (U) LT. YELLOW Normal YELLOW [facility] Comment on above: Performed By: #### U RCX #### [facility] [address] [place] [address] Dr. Caitlin Martinez Glucose Ql (U) Negative Normal NEGATIVE [facility] Comment on above: Performed By: #### U RCX #### [facility] [address] [place] [address] Dr. Caitlin Martinez Hemoglobin Ql (U) Negative Normal NEGATIVE [facility] Comment on above: Performed By: #### U RCX #### [facility] [address] [place] [address] Dr. Caitlin Martinez Ketones Ql (U) Negative Normal NEGATIVE [facility] Comment on above: Performed By: #### U RCX #### [facility] [address] [place] [address] Dr. Caitlin Martinez LEUKOCYTES SMALL Abnormal NEGATIVE [facility] Comment on above: Performed By: #### U RCX #### [facility] [address] [place] [address] Dr. Caitlin Martinez Nitrite Ql (U) Negative Normal NEGATIVE [facility] Comment on above: Performed By: #### U RCX #### [facility] [address] [place] [address] Dr. Caitlin Martinez pH (U) 6.5 [pH] Normal 5-9 [facility] Comment on above: Performed By: #### U RCX #### [facility] [address] [place] [address] Dr. Caitlin Martinez SPEC GRAVITY 1.010 Normal 1.005-<=1.02 5 [facility] Comment on above: Performed By: #### U RCX #### [facility] [address] [place] [address] Dr. Caitlin Martinez UA PROTEIN Negative Normal NEGATIVE/ TRACE [facility] Comment on above: Performed By: #### U RCX #### [facility] [address] [place] [address] Dr. Caitlin Martinez UR MICRO IND INDICATED Normal [facility] Comment on above: Performed By: #### U RCX #### [facility] [address] [place] [address] Dr. Caitlin Martinez Urobilinogen Qn (U) 0.2 {Barbara'U}/dL Normal 0.2 - 1. 0 [facility] Comment on above: Performed By: #### U RCX #### [facility] [address] [place] [address] Dr. Caitlin Martinez URINE MICROSCOPIC ONLYon BACTERIA TRACE Abnormal NONE SEEN [facility] Comment on above: Performed By: #### U RCX #### [facility] [address] [place] [address] Dr. Caitlin Martinez Bacteria identified Cx Nom (U) INDICATED Normal [facility] Comment on above: Performed By: #### U RCX #### [facility] [address] [place] [address] Dr. Caitlin Martinez CAST SEEN Abnormal NONE SEEN [facility] Comment on above: Performed By: #### U RCX #### [facility] [address] [place] [address] Dr. Caitlin Martinez Crystals LM Nom (Urine sed) SEEN Abnormal NONE SEEN [facility] Comment on above: Performed By: #### U RCX #### [facility] [address] [place] [address] Dr. Caitlin Martinez Epithelial cells LM Ql (Urine sed) RARE Normal NONE SEEN /RARE [facility] Comment on above: Performed By: #### U RCX #### [facility] [address] [place] [address] Dr. Caitlin Martinez MUCOUS TRACE Abnormal NONE SEEN [facility] Comment on above: Performed By: #### U RCX #### [facility] [address] [place] [address] Dr. Caitlin Martinez RBC 0-2 Normal 0-2 [facility] Comment on above: Performed By: #### U RCX #### [facility] [address] [place] [address] Dr. Caitlin Martinez WBC 2-5 Abnormal NONE SEEN [facility] Comment on above: Performed By: #### U RCX #### [facility] [address] [place] [address] Dr. Caitlin Martinez GLUCOSE - 1HRon 11-06-2021 Glucose [Mass/Vol] 131 mg/dL Critically high 74-106 T [facility] Comment on above: Performed By: #### I HORACIO #### [facility] [address] [place] [address] Dr. Caitlin Martinez HEMOGRAM AND PLATELon 2021 Hematocrit (Bld) [Volume fraction] 34.2 % Critically low 36.0-48.0 [facility] Comment on above: Performed By: #### C BC #### [facility] [address] [place] [address] Dr. Caitlin Martinez Hemoglobin (Bld) [Mass/Vol] 11.3 g/dL Critically low 12.0-16.0 [facility] Comment on above: Performed By: #### C BC #### [facility] [address] [place] [address] Dr. Caitlin Martinez MCH (RBC) [Entitic mass] 31.7 pg Normal 26.7-34.0 [facility] Comment on above: Performed By: #### C BC #### [facility] [address] [place] [address] Dr. Caitlin Martinez MCHC (RBC) [Mass/Vol] 33.0 g/dL Normal 29.9-35.2 [facility] Comment on above: Performed By: #### C BC #### [facility] [address] [place] [address] Dr. Caitlin Martinez MCV (RBC) [Entitic vol] 96.1 fL Normal 81.0-99.0 [facility] Comment on above: Performed By: #### C BC #### [facility] [address] [place] [address] Dr. Caitlin Martinez PLT 372 103/ul Normal 150-450 The [facility] Comment on above: Performed By: #### C BC #### [facility] [address] [place] [address] Dr. Caitlin Martinez RBC 3.56 106/ul Critically low 4.20-5.40 [facility] Comment on above: Performed By: #### C BC #### [facility] [address] [place] [address] Dr. Caitlin Martinez WBC 10.1 103/ul Normal 4.0-11.0 [facility] Comment on above: Performed By: #### C BC #### [facility] [address] [place] [address] Dr. Caitlin Martinez CHLAMYDIA/GONOCOCCUS JONATAN ( AB/URINE/PAPon 10-31-2021 Chlamydia trachomatis, JONATAN Negative Normal Negative [facility] Comment on above: Performed By: #### C BC #### [facility] [address] [place] [address] Dr. Caitlin Martinez Neisseria gonorrhoeae, JONATAN Negative Normal Negative [facility] Comment on above: Performed By: #### C BC #### [facility] [address] [place] [address] Dr. Caitlin Martinez VAGINITIS/VAGINOSIS DNA PROB Paramjit 10-29-2021 Shannon species Negative Normal Negative [facility] Comment on above: Performed By: #### U RCX #### [facility] [address] [place] [address] Dr. Caitlin Martinez Gardnerella vaginalis Negative Normal Negative [facility] Comment on above: Performed By: #### U RCX #### [facility] [address] [place] [address] Dr. Caitlin Martinez Trichomonas vaginalis Negative Normal Negative [facility] Comment on above: Performed By: #### U RCX #### [facility] [address] [place] [address] Dr. Caitlin Martinez US PREG INCOMPLETE ANATOMYon [...] DAVID BLACKMON Date: 2021-10-26 12:05 Normal [facility] CBC W MANUAL DIFFon 10-25-19 22 ATYPICAL LYMPH # Normal [facility] Comment on above: Performed By: #### U RCX #### [facility] [address] [place] [address] Dr. Caitlin Martinez ATYPICAL LYMPH % Normal [facility] Comment on above: Performed By: #### U RCX #### [facility] [address] [place] [address] Dr. Caitlin Martinez BAND # 0.1 103/ul Normal 0.0-0.3 [facility] Comment on above: Performed By: #### U RCX #### [facility] [address] [place] [address] Dr. Caitlin Martinez BAND % 1 % Normal 0-5 [facility] Comment on above: Performed By: #### U RCX #### [facility] [address] [address] [address] Caitlin Martinez BASOM # 0.00 103/ul Normal 0.00-0.10 [facility] Comment on above: Performed By: #### U RCX #### [facility] [address] [address] [address] Caitlin Martinez BASOM % 0.0 % Critically low 0.2-2.0 [facility] Comment on above: Performed By: #### U RCX #### [facility] [address] [address] [address] Caitlin Martinez BLAST # Normal [facility] Comment on above: Performed By: #### U RCX #### [facility] [address] [place] [address] Dr. Caitlin Martinez BLAST % Normal [facility] Comment on above: Performed By: #### U RCX #### [facility] [address] [place] [address] Dr. Caitlin Martinez CORRECTED WBC Normal 4.0-11.0 [facility] Comment on above: Performed By: #### U RCX #### [facility] [address] [place] [address] Dr. Caitlin Martinez EOS # 0.12 103/ul Normal 0.00-0.70 [facility] Comment on above: Performed By: #### U RCX #### [facility] [address] [place] [address] Dr. Caitlin Martinez EOS% 1.0 % Normal 0.9-7.0 [facility] Comment on above: Performed By: #### U RCX #### [facility] [address] [address] [address] Caitlin Martinez HCT 31.5 % Critically low 36.0-48.0 [facility] Comment on above: Performed By: #### U RCX #### [facility] [address] [place] [address] Dr. Caitlin Martinez HGB 10.5 g/dl Critically low 12.0-16.0 [facility] Comment on above: Performed By: #### U RCX #### [facility] [address] [address] [address] Caitlin Martinez LYMPHM # 0.37 103/ul Critically low 1.20-3.80 [facility] Comment on above: Performed By: #### U RCX #### [facility] [address] [address] [address] Caitlin Martinez LYMPHM% 3.0 % Critically low 20.5-60.0 [facility] Comment on above: Performed By: #### U RCX #### [facility] [address] [place] [address] Dr. Caitlin Martinez MCH 31.8 pg Normal 26.7-34.0 [facility] Comment on above: Performed By: #### U RCX #### [facility] [address] [place] [address] Dr. Caitlin Martinez MCHC 33.3 g/dl Normal 29.9-35.2 [facility] Comment on above: Performed By: #### U RCX #### [facility] [address] [place] [address] Dr. Caitlin Martinez MCV 95.5 fL Normal 81.0-99.0 [facility] Comment on above: Performed By: #### U RCX #### [facility] [address] [place] [address] Dr. Caitlin Martinez METAMYELOCYTE # Normal [facility] Comment on above: Performed By: #### U RCX #### [facility] [address] [place] [address] Dr. Caitlin Martinez METAMYELOCYTE % Normal [facility] Comment on above: Performed By: #### U RCX #### [facility] [address] [place] [address] Dr. Caitlin Martinez MONOM# 0.73 103/ul Normal 0.30-0.80 [facility] Comment on above: Performed By: #### U RCX #### [facility] [address] [place] [address] Dr. Caitlin Martinez MONOM% 6.0 % Normal 1.7-12.0 [facility] Comment on above: Performed By: #### U RCX #### [facility] [address] [place] [address] Dr. Caitlin Martinez MPV 9.5 fL Normal 9.5-13.5 [facility] Comment on above: Performed By: #### U RCX #### [facility] [address] [place] [address] Dr. Caitlin Martinez MYELOCYTE # Normal [facility] Comment on above: Performed By: #### U RCX #### [facility] [address] [place] [address] Dr. Caitlin Martinez MYELOCYTE % Normal [facility] Comment on above: Performed By: #### U RCX #### [facility] [address] [place] [address] Dr. Caitlin Martinez NRBC Normal [facility] Comment on above: Performed By: #### U RCX #### [facility] [address] [place] [address] Dr. Caitlin Martinez PLT 275 103/ul Normal 150-450 [facility] Comment on above: Performed By: #### U RCX #### [facility] [address] [place] [address] Dr. Caitlin Martinez RBC 3.30 106/ul Critically low 4.20-5.40 [facility] Comment on above: Performed By: #### U RCX #### [facility] [address] [place] [address] Dr. Caitlin Martinez RDW 13.6 % Normal 11.0-15.0 [facility] Comment on above: Performed By: #### U RCX #### [facility] [address] [place] [address] Dr. Caitlin Martinez SEG # 10.86 103/ul Critically high 1.40-6.50 [facility] Comment on above: Performed By: #### U RCX #### [facility] [address] [place] [address] Dr. Caitlin Martinez SEG % 89.0 % Critically high 43.0-75.0 [facility] Comment on above: Performed By: #### U RCX #### [facility] [address] [place] [address] Dr. Caitlin Martinez WBC 12.2 103/ul Critically high 4.0-11.0 [facility] Comment on above: Performed By: #### U RCX #### [facility] [address] [address] [address] Caitlin Martinez ER URINE PROFILEon 2 Bilirubin Ql (U) Negative Normal NEGATIVE [facility] Comment on above: Performed By: #### C VDTBH #### [facility] [address] [place] [address] Dr. Caitlin Martinez Clarity (U) SL CLOUDY Abnormal CLEAR [facility] Comment on above: Performed By: #### C VDTBH #### [facility] [address] [place] [address] Dr. Caitlin Martinez Color (U) YELLOW Normal YELLOW [facility] Comment on above: Performed By: #### C VDTBH #### [facility] [address] [place] [address] Dr. Caitlin Martinez ERUAHD A micrscopic examination will be performed if indicated. Normal [facility] Comment on above: Performed By: #### C VDTBH #### [facility] [address] [place] [address] Dr. Caitlin Martinez Glucose Ql (U) Negative Normal NEGATIVE [facility] Comment on above: Performed By: #### C VDTBH #### [facility] [address] [place] [address] Dr. Caitlin Martinez Hemoglobin Ql (U) Negative Normal NEGATIVE [facility] Comment on above: Performed By: #### C VDTBH #### [facility] [address] [place] [address] Dr. Caitlin Martinez Ketones Ql (U) >=80 Abnormal NEGATIVE [facility] Comment on above: Performed By: #### C VDTBH #### [facility] [address] [place] [address] Dr. Caitlin Martinez LEUKOCYTES Negative Normal NEGATIVE [facility] Comment on above: Performed By: #### C VDTBH #### [facility] [address] [place] [address] Dr. Caitlin Martinez Nitrite Ql (U) Negative Normal NEGATIVE [facility] Comment on above: Performed By: #### C VDTBH #### [facility] [address] [place] [address] Dr. Caitlin Martinez pH (U) 6.0 [pH] Normal 5-9 [facility] Comment on above: Performed By: #### C VDTBH #### [facility] [address] [place] [address] Dr. Caitlin Martinez SPEC GRAVITY 1.020 Normal 1.005-<=1.02 5 [facility] Comment on above: Performed By: #### C VDTBH #### [facility] [address] [place] [address] Dr. Caitlin Martinez UA PROTEIN Negative Normal NEGATIVE/ TRACE [facility] Comment on above: Performed By: #### C VDTBH #### [facility] [address] [place] [address] Dr. Caitlin Martinez UR MICRO IND NOT INDICATED Normal [facility] Comment on above: Performed By: #### C VDTBH #### [facility] [address] [place] [address] Dr. Caitlin Martinez Urobilinogen Qn (U) 1.0 {Barbara'U}/dL Normal 0.2 - 1. 0 [facility] Comment on above: Performed By: #### C VDTBH #### [facility] [address] [place] [address] Dr. Caitlin Martinez INFLUENZA A AND B AGon 10-24 INFLUBNEG SEE BELOW Normal [facility] Comment on above: Result Comment: Nega tive for Flu B protein antigen. Infection due to Flu B cannot be ruled out. Flu B antigen in the sample may be below the detection limit of the test. Performed By: #### C VDTBH #### [facility] [address] [place] [address] Dr. Caitlin Martinez INFLUENZA A AG Positive Abnormal NEGATIVE SEE COMMENT [facility] Comment on above: Performed By: #### C VDTBH #### [facility] [address] [place] [address] Dr. Caitlin Martinez INFLUENZA B AG Negative Normal NEGATIVE SEE COMMENT [facility] Comment on above: Performed By: #### C VDTBH #### [facility] [address] [place] [address] Dr. Caitlin Martinez INFLUPOSH SEE BELOW Normal [facility] Comment on above: Result Comment: NOTE : Live attenuated influenzae vaccine viruses can cause a positive result for a rapid influenza diagnostic test if administered up to 7 days prior to rapid testing. Performed By: #### C VDTBH #### [facility] [address] [place] [address] Dr. Caitlin Martinez INTERNAL CONTROLS Within Normal Limits Normal Wi thin Normal Limits [facility] Comment on above: Performed By: #### C VDTBH #### [facility] [address] [place] [address] Dr. Caitlin Martinez PROF CHEM 8 (BAS METB)on Anion gap [Moles/Vol] 14.4 mmol/L Normal [facility] Comment on above: Performed By: #### D TRACY MELGOZA #### [facility] [address] [place] [address] Dr. Caitlin Martinez Calcium [Mass/Vol] 8.4 mg/dL Critically low 8.5-10.1 [facility] Comment on above: Performed By: #### D TRACY MELGOZA #### [facility] [address] [place] [address] Dr. Caitlin Martinez Chloride [Moles/Vol] 101 mmol/L Normal 98-107 [facility] Comment on above: Performed By: #### D TRACY MELGOZA #### [facility] [address] [place] [address] Dr. Caitlin Martinez CO2 [Moles/Vol] 19.7 mmol/L Critically low 21.0-32.0 [facility] Comment on above: Performed By: #### D TRACY MELGOZA #### [facility] [address] [address] [address] Caitlin Martinez Creatinine [Mass/Vol] 0.55 mg/dL Normal 0.55-1.02 [facility] Comment on above: Performed By: #### D IRCMB, ABID #### [facility] [address] [address] [address] Caitlin Martinez EGFR-AF CAP[place]DEAN >60 Normal >=60 [facility] Comment on above: Performed By: #### D IRCMB, ABID #### [facility] [address] [address] [address] Caitlin Martinez EGFR-NON AF [place]AN >60 Normal >=60 [facility] Comment on above: Performed By: #### D IRCMB, ABID #### [facility] [address] [address] [address] Caitlin Martinez Glucose [Mass/Vol] 91 mg/dL Normal 74-106 [facility] Comment on above: Performed By: #### D IRCMB, ABID #### [facility] [address] [address] [address] Caitlin Martinez Potassium [Moles/Vol] 3.1 mmol/L Critically low 3.5-5.1 [facility] Comment on above: Performed By: #### D IRCMB, ABID #### [facility] [address] [address] [address] Caitlin Martinez Sodium [Moles/Vol] 132 mmol/L Critically low 136-145 [facility] Comment on above: Performed By: #### D IRCMB, ABID #### [facility] [address] [address] [address] Caitlin Martinez Urea nitrogen [Mass/Vol] 7.0 mg/dL Normal 7.0-18.0 [facility] Comment on above: Performed By: #### D IRCMB, ABID #### [facility] [address] [address] [address] Caitlin Martinez Urea nitrogen/Creatinine [Mass ratio] 12.7 mg/mg Normal [facility] Comment on above: Performed By: #### D IRCMB, ABID #### [facility] [address] [address] [address] Caitlin Martinez US PREG ANATOMY SINGLEon [...] by: DAVID BLACKMON Date: 2021-09-28 09:17 Normal [facility] CHEMISTRYOrdered By: SYSTEM SYSTEM on 06-21-2021 [place] [address] m[IU]/mL High 1 - 3 mIU/mL [facility] [...] gas pattern is nonobstructive. There is a smrcppni-dn-wsdmn amount of stool burden. IMPRESSION: No malalignment. No acute compression deformity. Cyuebcmc-gd-cqpas amount of stool burden. [employer] Workstation ID: [id number] Dictated by: LUBA GARCÍA on [facility] Mar 05, 2020 4:09:51 PM EDT Transcribed by: KELVIN GUADALUPE on [facility] Mar 05, 2020 4:17:18 PM EDT Finalized by: LUBA GARCÍA on [facility] Mar 05, 2020 7:52:[address] [facility] Comment on above: Order Comment: Injur y/Trauma or Illness?:Illness/Other How long have you had these symptoms (acute/chronic)?:Chronic Reason for exam?:low back pain History of cancer?:n Surgeries, chemotherapy, or radiation?:n Type of Exam?:Initial Additional signs and symptoms?:fibromyalgia XR Lumbar Spine 2-3 Views (S tandard)on 03-05-2020 No malalignment. No acute compression deformity. Oqsekmep-zn-jzufk amount of stool burden. [employer] Workstation ID: [id number] [facility] EXAMINATION: XR LUMBAR SPINE 2-3 [...] gas pattern is nonobstructive. There is a gmfyqenf-hz-hsckq amount of stool burden. [facility] Interface, Rad In [place] Speechq - [...] gas pattern is nonobstructive. There is a oabqobhl-gt-urthb amount of stool burden. IMPRESSION: No malalignment. No acute compression deformity. Hmvjgdea-ir-highx amount of stool burden. [employer] Workstation ID: [id number] [facility] CNOVon 10-28-2018 CNOV Office Visit (OLVIN) MICHELLE GODINEZ ([id number]) 1995 F Date Time Provider Department 10/28/18 [...] REFERRING PROVIDER: Rebecca Lange MD [address] [place] [address] Consult requested for an opinion regarding the [...] TIME: 12:44 PM Referring Provider: REBECCA LANGE [[id number]] Allergies As of Date: 10/28/2018 (No Known [...] by YOAN RODRIGUEZ MD on 10/29/18 Normal [facility] PROGRESSon 10-28-2018 Protein mass conc HNO ID: [id number] Author: Yoan Rodriguez Service: ? Author Type: Physician Type: Progress Notes Filed: 10/29/2018 3:03 PM Note Text: VASCULAR SURGERY INITIAL CONSULT SERVICE DATE: 10/28/2018 SERVICE TIME: 12:44 PM PRIMARY CARE PHYSICIAN: Rebecca Lange MD REFERRING PROVIDER: Rebecca Lange MD [address] [facility] [phone] Consult requested for an opinion regarding the [...] 2018 TIME: 12:44 PM Normal [facility] Vital Signs Date Time Vital Sign Value Performing Clinician Facility 11-30-2024 11:11-0400 Body mass index (BMI) [Ratio] 31.67 kg/m2 [email or web address] DO Work Phone: [facility] 11-30-2024 11:11-0400 Body weight 81.1 kg [email or web address] DO Work Phone: [facility] 11-30-2024 11:11-0400 Diastolic blood pressure 60 mm[Hg] [employer] DO Work Phone: [facility] 11-30-2024 11:11-0400 Systolic blood pressure 100 mm[Hg] Edward Justen DO Work Phone: [facility] 10-19-2024 13:21-0400 Body mass index (BMI) [Ratio] 32.42 kg/m2 Edward Justen DO Work Phone: [facility] 10-19-2024 13:21-0400 Body weight 83.01 kg Edward Justen DO Work Phone: [facility] 10-19-2024 13:21-0400 Diastolic blood pressure 72 mm[Hg] Edward Justen DO Work Phone: [facility] 10-19-2024 13:21-0400 Systolic blood pressure 118 mm[Hg] Edward Justen DO Work Phone: [facility] 09-15-2024 11:48-0400 Body mass index (BMI) [Ratio] 32.74 kg/m2 Edward Justen DO Work Phone: [facility] 09-15-2024 11:48-0400 Body weight 83.83 kg Edward Justen DO Work Phone: [facility] 09-15-2024 11:48-0400 Diastolic blood pressure 70 mm[Hg] Edward Justen DO Work Phone: [facility] 09-15-2024 11:48-0400 Systolic blood pressure 112 mm[Hg] Edward Justen DO Work Phone: [facility] 05-07-2024 14:16-0500 Blood Pressure Location LEYDI JEFFERS [facility] 05-07-2024 14:16-0500 Diastolic blood pressure 82 mm[Hg] LEYDI JEFFERS [facility] 05-07-2024 14:16-0500 Heart rate 96 /min LEYDI JEFFERS [facility] 05-07-2024 14:16-0500 Systolic blood pressure 134 mm[Hg] LEYDI JEFFERS [facility] 04-21-2024 14:26-0500 Body mass index (BMI) [Ratio] 32.62 kg/m2 Edward Justen DO Work Phone: [facility] 04-21-2024 14:26-0500 Body weight 83.52 kg Edward Justen DO Work Phone: [facility] 04-21-2024 14:26-0500 Diastolic blood pressure 64 mm[Hg] Edward Justen DO Work Phone: [facility] 04-21-2024 14:26-0500 Systolic blood pressure 104 mm[Hg] Edward Justen DO Work Phone: [facility] 03-23-2024 11:38-0400 Body mass index (BMI) [Ratio] 32.24 kg/m2 Betsy BUCHANAN Work Phone: [facility] 03-23-2024 11:38-0400 Body weight 82.56 kg Betsy Christa PA Work Phone: [facility] 03-23-2024 11:38-0400 Diastolic blood pressure 64 mm[Hg] Betsy Goodwin PA Work Phone: [facility] 03-23-2024 11:38-0400 Systolic blood pressure 114 mm[Hg] Betsy Goodwin PA Work Phone: [facility] 03-02-2024 10:24-0400 Body height 160 cm Janie Ria DO Work Phone: [facility] 03-02-2024 10:24-0400 Body mass index (BMI) [Ratio] 34.19 kg/m2 Janie Ria DO Work Phone: [facility] 03-02-2024 10:24-0400 Body weight 87.54 kg Janie Ria DO Work Phone: [facility] 03-02-2024 10:24-0400 Diastolic blood pressure 68 mm[Hg] Janie Ria DO Work Phone: [facility] 03-02-2024 10:24-0400 Heart rate 74 /min Janie Theodore DO Work Phone: [facility] 03-02-2024 10:24-0400 Respiratory rate 12 /min Janie Theodore DO Work Phone: [facility] 03-02-2024 10:24-0400 SaO2% (BldA) [Mass fraction] 99 % Janie Theodore DO Work Phone: [facility] 03-02-2024 10:24-0400 Systolic blood pressure 118 mm[Hg] Janie Theodore DO Work Phone: [facility] 11-07-2023 13:01-0400 Body weight 76.77 kg Mitul Rdz MD Work Phone: [facility] 11-07-2023 13:01-0400 Diastolic blood pressure 53 mm[Hg] Mitul Rdz MD Work Phone: [facility] 11-07-2023 13:01-0400 Heart rate 66 /min Mitul Rdz MD Work Phone: [facility] 11-07-2023 13:01-0400 Systolic blood pressure 107 mm[Hg] Mitul Rdz MD Work Phone: [facility] 07-19-2023 09:31-0500 Body mass index (BMI) [Ratio] 26.79 kg/m2 [facility] Nurse [facility] 07-19-2023 09:31-0500 Body weight 73.03 kg [facility] 07-19-2023 09:31-0500 Diastolic blood pressure 72 mm[Hg] [facility] 07-19-2023 09:31-0500 Systolic blood pressure 118 mm[Hg] [facility] Nurse [facility] Healthcare Encounters Encounter Date Encounter Type Care Provider Facility Start: 12-15-2024 End: 12-15-2024 ambulatory PARegina JEFFERS Facility:[facility] Start: 12-15-2024 End: 12-15-2024 Patient encounter procedure LEYDI JEFFERS [facility] Start: 11-30-2024 End: 11-30-2024 Office outpatient visit 15 minutes Edward Justen DO Work Phone: [facility] Comment on above: Pre-op examination; Pelvic pain; Dyspareunia in female Start: 11-30-2024 End: 11-30-2024 Preprocedural examination done Edward Justen DO Work Phone: [facility] Start: 11-30-2024 End: 11-30-2024 ambulatory EDWARD JUSTEN Not Available Start: 11-24-2024 ambulatory Royer Layne acility:[facility] Start: 11-15-2024 End: 11-15-2024 ambulatory Ilir Marshall [facility] Work Phone: Start: 11-15-2024 End: 11-15-2024 Departed Referred Ilir Marshall MD Work Phone: [facility] Start: 10-19-2024 End: 10-19-2024 Bamboo flowsheet Edward [...] Bamboo flowsheet Edward Justen DO Work Phone: [facility] Start: 10-01-2024 End: 10-01-2024 Office outpatient visit 15 minutes Edward Justen DO Work Phone: [facility] Comment on above: Vaginal discharge; BV (bacterial vaginosis) Start: 10-01-2024 End: 10-01-2024 ambulatory EDWARD JUSTEN Not Available Start: 09-23-2024 End: 09-23-2024 Bamboo flowsheet Betsy BUCHANAN Work Phone: [facility] Start: 09-23-2024 End: 09-23-2024 Bamboo flowsheet Betsy BUCHANAN Work Phone: [facility] Start: 09-23-2024 End: 09-23-2024 ambulatory BETSY GOODWIN Not Available Start: 09-23-2024 End: 09-23-2024 Online digital e/m svc est pt <7 d 5-10 minutes Betsy BUCHANAN Work Phone: [facility] Comment on above: Pelvic pain in femal e (Primary Dx) Start: 09-15-2024 End: 09-15-2024 Bamboo flowsheet Edward Justen DO Work Phone: [facility] Start: 09-15-2024 End: 09-16-2024 Bamboo flowsheet Edward Justen DO Work Phone: [facility] Start: 09-15-2024 End: 09-15-2024 Clinisync Result Encounter Edward Justen DO Work Phone: [facility] External Department Unsolicited Start: 09-15-2024 End: 09-16-2024 [...] visit 15 minutes Betsy BUCHANAN Work Phone: [facility] Comment on above: Yeast infection Start: 05-28-2024 End: 05-28-2024 ambulatory BETSY GOODWIN Not Available Start: 05-28-2024 End: 05-28-2024 Bamboo flowsheet Betsy BUCHANAN Work Phone: [facility] Start: 05-28-2024 End: 05-30-2024 Bamboo flowsheet Betsy Goodwin PA Work Phone: [facility] Start: 05-28-2024 End: 05-30-2024 External Result Encounter Betsy Christa PA Work Phone: [facility] External Department Unsolicited Start: 05-07-2024 End: 05-07-2024 ambulatory PA-C LEYDI JEFFERS Facility:[facility] Start: 05-07-2024 End: 05-07-2024 Patient encounter procedure LEYDI JEFFERS [facility] Start: 04-24-2024 ambulatory PA-C LEYDI JEFEFRS Fac ility:[facility] Start: 04-21-2024 End: 04-21-2024 Bamboo flowsheet Edward Justen DO Work Phone: [facility] Start: 04-21-2024 End: 04-21-2024 Bamboo flowsheet Edward Justen DO Work Phone: [facility] Start: 04-21-2024 End: 04-21-2024 ambulatory EDWARD CAMPUZANO Not Available Start: 04-21-2024 End: 04-21-2024 Office outpatient visit 15 minutes Edward Campuzano DO Work Phone: [facility] Comment on above: Yeast infection; Encounter for fertility planning; Recurrent UTI Start: 04-16-2024 End: 04-16-2024 Patient encounter procedure DO Janie Theodore Work Phone: [facility] [address] Work Phone: Start: 04-16-2024 End: 04-16-2024 ambulatory Igor Becerra [facility] Work Phone: Start: 03-23-2024 End: 03-23-2024 [...] Unsolicited Start: 03-10-2024 End: 03-10-2024 [facility] Start: 03-10-2024 End: 03-10-2024 Departed Referred DO Janie Theodore Work Phone: [facility] Start: 03-04-2024 End: 03-05-2024 Telephone encounter Janie Theodore DO Work Phone: [facility] Comment on above: Abdominal Pain (Teresa ent scheduled for surgery on 03/10. Patient is complaining of pain radiating from breast bone to belly button and asking if this is normal.) Start: 03-02-2024 End: 03-02-2024 Bamboo flowsheet Janiemargarita Theodore DO Work Phone: [facility] Start: 03-02-2024 End: 03-02-2024 Bamboo flowsheet Janie Theodore DO Work Phone: [facility] Start: 03-02-2024 End: 03-02-2024 Office outpatient new 45 minutes Janie Theodore DO Work Phone: [facility] [...] Available Start: 12-05-2023 End: 12-05-2023 ambulatory EDWARD CAMPUZANO Not Available Start: 11-20-2023 End: 11-26-2023 Telephone encounter Jennifer Smiley RN [facility] at [facility] Start: 11-07-2023 End: 11-08-2023 ambulatory EDWARD Laura BILLJUSTEN [facility] Start: 11-07-2023 End: 11-07-2023 Office consultation new/estab patient 60 min Mitul Rdz MD Work Phone: [facility] Comment on above: 24 weeks gestation o f (Primary Dx); Single umbilical artery; Circumvallate placenta during in second trimester, antepartum; Family history of cystic fibrosis Start: 10-23-2023 End: 10-23-2023 Chart abstracting Scanning Provider External [facility] at [facility] Start: 10-22-2023 End: 10-23-2023 Chart abstracting Mitul Rdz MD Work Phone: [facility] Start: 07-25-2023 Clinisync Result Encounter Edward Housero DO Work Phone: [facility] External Department Unsolicited Start: 07-25-2023 Clinisync Result Encounter Edward Justen DO Work Phone: [facility] External Department Unsolicited Start: 07-19-2023 End: 07-19-2023 Office outpatient visit 5 minutes [facility] Justen Nurse [facility] Comment on above: GA: 9w0d Start: 07-30-2022 End: 07-31-2022 ambulatory DUARTE VALDERRAMA [...] MAGANAC Facility:[facility] Start: 11-06-2021 End: 11-07-2021 ambulatory DOCTOR MISC Facility:[facility] Start: 10-29-2021 End: 10-29-[address] LORENZANA MISC Facility:[facility] Start: 10-26-2021 End: 10-26-[address] LORENZANA MISC Facility:[facility] Start: 10-26-2021 End: 10-27-2021 ambulatory DOCTOR MISC Facility:[facility] Start: 10-24-2021 End: 10-24-[address] LORENZANA MISC Facility:[facility] Start: 09-28-2021 End: 09-29-[address] EDWARD CAMPUZANO Facility:[facility] Start: 09-16-2021 End: 09-16-2021 ambulatory ILIR MARSHALL Facility:[facility] Start: 06-21-2021 End: 09-19-2021 Recurring Edward CAMPUZANO [facility] Start: 03-05-2020 End: 03-06-2020 Patient encounter procedure [facility] Start: 03-05-2020 End: 03-05-2020 Subsequent hospital visit by physician Vibha Johnson Work Phone: [facility] Comment on above: Chronic low [...] DO Work Phone: Start: 03-10-2024 HCG QUALITATIVE* Janei Mccoy uckett DO Work Phone: Start: 02-07-2024 ALL CBC WITH AUTO DIFF Edward Justen DO Work Phone: Start: 02-06-2024 [facility] CBC WITH PLATEL ET NO DIFFERENTIAL Edward Justen DO Work Phone: Start: 09-17-2023 Microscopic observat ion [Identifier] in Cervix by Cyto stain Mitul Rdz MD Work Phone: Start: 07-25-2023 ALL CBC WITH AUTO DIFF Edward Campuzano DO Work Phone: Start: 07-19-2023 End: 07-19-2023 Urnls dip stick/tablet rgnt non-auto w/o micrscp Edwardgenia Housero DO Work Phone: Start: 02-08-2022 Delivery of [...] Td Vaccines (8 - Td or Tdap) [facility] Start: 09-16-2026 Screening for malign ant neoplasm of cervix Pap Smear [facility] Start: 02-15-2025 Influenza vaccination Influenz a Vaccine (Season Ended) [facility] Start: 12-31-2024 End: 12-31-2024 Patient encounter procedure 12/31/2024 9:30 AM EDT Office Visit [facility] [address] [place] [address] Betsy Goodwin PA [address] [place] [address] [facility] Start: 11-30-2024 End: 11-30-2024 Patient encounter procedure 11/30/2024 10:50 AM EDT Consult [facility] [address] [place] [address] Edward Campuzano DO [address] [place], [place] [id number] [facility] Start: 11-15-2024 Urine culture [facility] Start: 11-15-2024 Bacteria identified in Urine by Culture Urine Culture [facility] Start: 11-06-2024 Tobacco Screening Tobacco Screening [facility] Start: 10-19-2024 End: 10-19-2024 Patient encounter procedure [facility] Comment on above: Arrived Start: 10-01-2024 End: 10-01-2024 Patient encounter procedure [facility] Comment on above: Arrived Start: 09-23-2024 End: 09-23-2024 Patient encounter procedure 09/23/2024 10:20 AM EDT Office Visit [facility] [address] [place] [phone] Betsy Goodwin PA [address] [place] [address] [facility] Start: 09-15-2024 End: 09-15-2025 US Pelvis US Pelvis w/ TV Imaging Routine Pelvic pain in female Expected: 09/15/2024 (Approximate), Expires: 09/15/2025 [facility] Comment on above: Expected: 09/15/2024 (Approximate), Expires: 09/15/2025 Start: 09-15-2024 End: 09-15-2024 Patient encounter procedure 09/15/2024 11:40 AM EDT Office Visit [facility] [address] [place] [phone] Edward Campuzano DO [address] [place] [address] Arrived [facility] Comment on above: Arrived Start: 05-28-2024 End: 05-28-2024 Patient encounter procedure 05/28/2024 2:50 PM EST Office Visit [facility] [address] [place] [phone] Betsy Goodwin PA [address] [place] [address] Arrived [facility] Comment on above: Arrived Start: 04-21-2024 End: 04-21-2024 Patient encounter procedure 04/21/2024 1:50 PM EST Office Visit [facility] [address] [place] [phone] Edward Campuzano, DO [address] [place] [address] [facility] Start: 04-16-2024 [facility] Start: 03-23-2024 End: 03-23-2024 ambulatory 03/23/2024 11:30 AM EDT Visit [facility] [address] [place] [phone] Betsy Goodwin PA [address] [place], [place] [phone] [facility] Start: 03-10-2024 End: 03-10-2024 Patient encounter procedure 03/10/2024 7:30 AM EDT Procedure Visit [facility] Janie Theodore, DO [address] [place] [phone] [facility] Start: 03-02-2024 End: 03-02-2024 Patient encounter procedure 03/02/2024 10:15 AM EDT Office Visit [facility] [address] [place] [address] Janie Theodore, [address] [place] [address] Arrived [facility] Comment on above: Arrived Start: 02-16-2024 Influenza vaccination N [facility] Start: 12-05-2023 End: 12-05-2023 Telemedicine consultation with patient 12/05/2023 3:00 PM EDT Telemedicine Maternal- Medicine at [facility] [address] [place] [address] Gabriella Caballero, [facility] [address] [place] [address] [facility]- [facility] at [facility] Start: 11-07-2023 End: 11-07-2023 Patient encounter procedure [facility] - [facility] Start: 08-19-2023 End: 08-19-2023 Patient encounter procedure 08/19/2023 11:10 AM EST Routine [facility] [address] [place] [phone] Edward Campuzano DO [address] [place] [place] [address] [facility] Start: 07-19-2023 End: 07-19-2024 ABO/Rh ABO/Rh Lab Routine Missed menses Expected: 07/19/2023 (Approximate), Expires: 07/19/2024 [facility] Comment on above: Expected: 07/19/2023 (Approximate), Expires: 07/19/2024 Start: 07-19-2023 End: 07-19-2024 Blood type and Indirect antibody screen panel - Blood Type and screen Lab Routine Missed menses Expected: 07/19/2023 (Approximate), Expires: 07/19/2024 [facility] Work Phone: Comment on above: Expected: 07/19/2023 (Approximate), Expires: 07/19/2024 Start: 07-19-2023 End: 07-19-2024 US Pelvis transvaginal US OB transvaginal Imaging Routine Missed menses Expected: 07/19/2023 (Approximate), Expires: 07/19/2024 [facility] Comment on above: Expected: 07/19/2023 (Approximate), Expires: 07/19/2024 Start: 02-16-2020 Influenza vaccinatio n given Sequential Influenza Vaccine (#1) [facility] Start: 08-31-2015 DTaP,Tdap and Td Vaccines (1 - Tdap) DTaP,Tdap and Td Vaccines (1 - Tdap) [facility] Start: 2014 Adult BMI Screening Adult BMI Screen ing [facility] Start: 2014 Hepatitis C antibody , confirmatory test Hepatitis C Screening [facility] Start: 08-31-2011 HIV screening HIV Screening [facility] Start: 2008 Depression Screening Depression Scre ening [facility] Start: 2008 Tobacco Screening Tobacco Screening [facility] Start: 08-31-2007 Vaccination for [place] papillomavirus HPV Vaccines (1 - 2-dose series) [facility] Start: 08-31-1999 History and physical examination, annual for health maintenance Wellness Visit [facility] Start: 1996 Screening for Chlamy tristan trachomatis Chlamydia Screening [facility] Start: 1996 Screening for malign ant neoplasm of cervix Pap Smear [facility] Start: 1996 Tetanus vaccination Tetanus: Every 1 0yrs [facility] Bacteria identified in Urine by Culture Urine culture Microbiology Routine Missed menses Ordered: 07/19/2023 [facility] Comment on above: Ordered: 07/19/2023 Bacteria identified in Urine by Culture Urine culture Microbiology Routine Yeast infection Ordered: 05/28/2024 [facility] Work Phone: Comment on above: Ordered: 05/28/2024 CBC W Auto Different ial panel - Blood CBC and differential Lab Routine Missed menses Ordered: 07/19/2023 [facility] Comment on above: Ordered: 07/19/2023 CHLAMYDIA TRACHOMATI S (GENITO/STI) CHLAMYDIA TRACHOMATIS (GENITO/STI) Lab Routine Yeast infection Ordered: 05/28/2024 [facility] Comment on above: Ordered: 05/28/2024 CHLAMYDIA TRACHOMATI S (GENITO/STI) CHLAMYDIA TRACHOMATIS (GENITO/STI) Lab Routine Pelvic pain in female Exposure to STD Vaginal discharge Ordered: 09/15/2024 [facility] Comment on above: Ordered: 09/15/2024 Cytology Cervical or vaginal smear or scraping study Pap Smear Pathology and Cytology Routine Well woman exam with routine gynecological exam Ordered: 10/19/2024 [facility] Work Phone: Comment on above: Ordered: 10/19/2024 Hemoglobin A1c measurement Hemoglobin A1c Lab Routine Missed menses Ordered: 07/19/2023 [facility] Comment on above: Ordered: 07/19/2023 Hepatitis B virus surface Ag [Presence] in Serum or Plasma by Immunoassay Hepatitis B surface antigen Lab Routine Missed menses Ordered: 07/19/2023 [facility] Comment on above: Ordered: 07/19/2023 Hepatitis C virus Ab [Presence] in Serum or Plasma by Immunoassay Hepatitis C antibody Lab Routine Missed menses Ordered: 07/19/2023 [facility] Comment on above: Ordered: 07/19/2023 HIV-1/HIV-2 antigen/antibody combination immunoassay HIV-1 and HIV-2 antibodies Lab Routine Missed menses Ordered: 07/19/2023 [facility] Comment on above: Ordered: 07/19/2023 Homogenous nuclear A b pattern [Titer] in Serum [facility] Neisseria gonorrhoea e DNA [Presence] in Unspecified specimen by JONATAN with probe detection Neisseria gonorrhea DNA probe, direct Lab Routine Yeast infection Ordered: 05/28/2024 [facility] Comment on above: Ordered: 05/28/2024 Neisseria gonorrhoea e DNA [Presence] in Unspecified specimen by JONATAN with probe detection Neisseria gonorrhea DNA probe, direct Lab Routine Pelvic pain in female Exposure to STD Vaginal discharge Ordered: 09/15/2024 [facility] Comment on above: Ordered: 09/15/2024 Nuclear Ab [Titer] i n Serum [facility] Reagin Ab [Presence] in Serum by RPR RPR Lab Routine Missed menses Ordered: 07/19/2023 [facility] Comment on above: Ordered: 07/19/2023 Rubella antibody, IgG Rubella an tibody, IgG Lab Routine Missed menses Ordered: 07/19/2023 [facility] Comment on above: Ordered: 07/19/2023 SURESWAB(R) ADVANCED VAGINITIS PLUS, TMA SURESWAB(R) ADVANCED VAGINITIS PLUS, TMA Pathology and Cytology Routine Yeast infection Ordered: 05/28/2024 [facility] Comment on above: Ordered: 05/28/2024 SURESWAB(R) ADVANCED VAGINITIS PLUS, TMA SURESWAB(R) ADVANCED VAGINITIS PLUS, TMA Pathology and Cytology Routine Pelvic pain in female Exposure to STD Vaginal discharge Ordered: 09/15/2024 [facility] Work Phone: Comment on above: Ordered: 09/15/2024 End: 11-06-2024 Unlisted Lab Test Unlisted Lab Test Lab Routine 24 weeks gestation of Single umbilical artery 1 Occurrences starting 11/07/2023 until 11/06/2024 [facility] Work Phone: Comment on above: 1 Occurrences starti ng 11/07/2023 until 11/06/2024 Immunizations Immunization Date Immunization Notes Care Provider Heraclio berg 08-29-2010 hepatitis A vaccine, unspecified formulation LEYDI ZEYAD [facility] 02-23-2010 hepatitis A vaccine, unspecified formulation LEYDI ZEYAD [facility] 02-23-2010 meningococcal ACWY vaccine, unspecified formulation LEYDI ZEYAD [facility] 02-23-2010 tetanus toxoid, redu rashad diphtheria toxoid, and acellular pertussis vaccine, adsorbed LEYDI ZEYAD [facility] 02-23-2010 varicella virus vaccine MARQUIS IFER ZEYAD [facility] 08-11-2007 varicella virus vaccine MARQUIS IFER ZEYAD [facility] 02-20-2002 measles, mumps and rubella virus vaccine LEYDI ZEYAD [facility] 01-29-2002 DTaP, unspecified formulation LEYDI ZEYAD [facility] 01-29-2002 hepatitis B vaccine, pediatric or pediatric/adolescent dosage LEYDI ZEYAD [facility] 01-30-2000 DTaP, unspecified formulation LEYDI ZEYAD [facility] 01-30-2000 hepatitis B vaccine, pediatric or pediatric/adolescent dosage LEYDI ZEYAD [facility] 01-30-2000 poliovirus vaccine, unspecified formulation LEYDI ZEYAD [facility] 09-02-1997 DTaP, unspecified formulation LEYDI ZEYAD [facility] 09-02-1997 Hib, unspecified formulation LEYDI ZEYAD [facility] 09-02-1997 measles, mumps and rubella virus vaccine LEYDI ZEYAD [facility] 05-20-1997 hepatitis B vaccine, pediatric or pediatric/adolescent dosage LEYDI ZEYAD [facility] 03-02-1997 DTaP, unspecified formulation LEYDI ZEYAD [facility] 03-02-1997 Hib, unspecified formulation LEYDI ZEYAD [facility] 1996 Hib, unspecified formulation LEYDI ZEYAD [facility] 1996 Hib, unspecified formulation LEYDI ZEYAD [facility] 1996 hepatitis B vaccine, pediatric or pediatric/adolescent dosage LEYDI ZEYAD [facility] 1996 hepatitis B vaccine, pediatric or pediatric/adolescent dosage LEYDI ZEYAD [facility] Payers Date Payer Category Payer Self-pay [id number] 2022 Private Health Insurance [facility] MEDICAID [id number] 2021 Medicaid [id number] 1996 Unknown [id number] 2.16.840.1.860199.3.579.2. 903 1996 Unknown [id number] 2.16.840.1.818887.3.579.2. 593 1996 Unknown [id number] 2.16.840.1.265730.3.579.2. 593 1996 Unknown [id number] 2.16.840.1.001576.3.579.2. 593 1996 Unknown [id number] 2.16.840.1.977055.3.579.2. 593 1996 Unknown [id number] 2.16.840.1.109376.3.579.2. 593 1996 Unknown [id number] 2.16.840.1.082799.3.579.2. 593 1996 Unknown [id number] 2.16.840.1.190314.3.579.2. 593 1996 Unknown [id number] 2.16.840.1.455922.3.579.2. 593 1996 Unknown [id number] 2.16.840.1.709596.3.579.2. 593 1996 Unknown [id number] 2.16.840.1.389002.3.579.2. 593 1996 Unknown [id number] 2.16.840.1.818390.3.579.2. 593 1996 Unknown [id number] 2.16.840.1.658550.3.579.2. 593 1996 Unknown [id number] 2.16.840.1.644260.3.579.2. 593 1996 Unknown [id number] 2.16.840.1.328001.3.579.2. 593 1996 Unknown [id number] 2.16.840.1.072563.3.579.2. 593 1996 Unknown [id number] 2.16.840.1.479627.3.579.2. 593 1996 Unknown [id number] 2.16.840.1.629681.3.579.2. 593 1996 Unknown [id number] 2.16.840.1.464775.3.579.2. 593 1996 Unknown [id number] 2.16.840.1.382356.3.579.2. 593 1996 Unknown [id number] 2.16.840.1.298461.3.579.2. 593 1996 Unknown [id number] 2.16.840.1.516943.3.579.2. 593 1996 Unknown [id number] 2.16.840.1.443297.3.579.2. 1286 1996 Unknown [id number] 2.16.840.1.403007.3.579.2. 1286 1996 Unknown [id number] 2.16.840.1.161695.3.579.2. 1258 1996 Unknown [id number] 2.16.840.1.096197.3.579.2. 1258 1996 Unknown [id number] 2.16.840.1.175872.3.579.2. 1258 1996 Unknown [id number] 2.16.840.1.914207.3.579.2. 1258 1996 Unknown [id number] 2.16.840.1.581374.3.579.2. 1258 1996 Unknown [id number] 2.16.840.1.831875.3.579.2. 1258 1996 Unknown [id number] 2.16.840.1.639253.3.579.2. 1258 1996 Unknown [id number] 2.16840.1.229098.3.579.2. 1258 1996 Unknown [id number] 2.16.840.1.794629.3.579.2. 1258 1996 Unknown [id number] 2.16.840.1.690466.3.579.2. 1258 1996 Unknown [id number] 2.16.840.1.204624.3.579.2. 1258 1996 Unknown [id number] 2.16.840.1.179710.3.579.2. 1258 1996 Unknown [id number] 2.16.840.1.969726.3.579.2. 1258 1996 Unknown [id number] 2.16.840.1.124169.3.579.2. 1258 1996 Unknown [id number] 2.16.840.1.923169.3.579.2. 1258 1996 Unknown [id number] 2.16.840.1.105170.3.579.2. 7 1996 Unknown [id number] 2..840.1.515543.3.579.2. 727 1996 Unknown [id number] 2..840.1.580441.3.579.2. 727 1959 Unknown [id number] 1959 Unknown [id number] Unknown [employer]ERCIAL [employer]ME RCIAL MISCELLANEOUS [id number] Effective for all dates [id number] 1.2.840.467971.1.13.385.2. 7.3.463510.315 Unknown [id number] Unknown [id number] 2.840.1.832187.3.579.2. 531 Unknown [id number] 2.840.1.854152.3.579.2. 531 Unknown [id number] 840.1.434477.3.579.2. 531 Unknown [id number] 840.1.732808.3.579.2. 531 Social History Date Type Detail Facility Tobacco smoking stat [facility] Unknown if ever smoked [facility] Start: 1996 Sex Assigned At Not on file [facility] Start: 12-07-2022 End: 12-05-2023 Sex Assigned At Female [facility] Start: 12-07-2022 End: 12-15-2024 Tobacco smoking status MNIS Never smoked tobacco [facility] Start: 07-19-2023 End: 10-19-2024 Alcohol intake Current drinker of alcohol (finding) [facility] Start: 12-07-2022 End: 12-05-2023 History of Social function [facility] Start: 12-07-2022 Alcohol Comment 1-2 drinks less than monthly in the past year [facility] Start: 05-31-2023 [facility] Start: 1996 Sex Assigned At Female [facility] Start: 11-29-2022 Gender identity Identifies as female gender (finding) [facility] Start: 11-29-2022 Sexual orientation Heterosexual (finding) [facility] Childcare Unknown [facility] Start: 09-28-2009 End: 11-17-2024 Sex Female (finding) [facility] Sexual Orientation [facility] Functional Status Date Assessment Result Facility 05-07-2024 Functional Status Yes [facility] Clinical Notes 01-15-2022 to 12-15-2024 Rin Gutierrez - 11/30/2024 10:50 AM EDTSkaro Rhodafarshad, ANCILLARY SPECIALIST - 10/19/2024 1:00 PM EDTSkaro Mondragon, ANCILLARY SPECIALIST - 10/01/2024 10:20 AM CHANEL Peralta - 09/23/2024 10:20 AM EDT Note Date & Type Note Facility 12-15-2024 Hospital Discharge instructions Patient Education 12/15/2024 10:46:28 Urinary Tract Infection, Adult Urinary Tract Infection, Adult A urinary tract infection (UTI) is an infection of any part of the urinary tract. The urinary tract includes the kidneys, ureters, bladder, and urethra. These organs make, store, and get rid of urine in the body. An upper UTI affects the ureters and kidneys. A lower UTI affects the bladder and urethra. What are the causes? Most urinary tract infections are caused by bacteria in your genital area around your urethra, where urine leaves your body. These bacteria grow and cause inflammation of your urinary tract. What increases the risk? You are more likely to develop this condition if: You have a urinary catheter that stays in place. You are not able to control when you urinate or have a bowel movement (incontinence). You are female and you: ?Use a spermicide or diaphragm for control. ?Have low estrogen levels. ?Are . You have certain genes that increase your risk. You are sexually active. You take antibiotic medicines. You have a condition that causes your flow of urine to slow down, such as: ?An enlarged prostate, if you are male. ?Blockage in your urethra. ?A kidney stone. ?A nerve condition that affects your bladder control (neurogenic bladder). ?Not getting enough to drink, or not urinating often. You have certain medical conditions, such as: ?Diabetes. ?A weak disease-fighting system (immunesystem). ?Sickle cell disease. ?Gout. ?Spinal cord injury. What are the signs or symptoms? Symptoms of this condition include: Needing to urinate right away (urgency). Frequent urination. This may include small amounts of urine each time you urinate. Pain or burning with urination. Blood in the urine. Urine that smells bad or unusual. Trouble urinating. Cloudy urine. Vaginal discharge, if you are female. Pain in the abdomen or the lower back. You may also have: Vomiting or a decreased appetite. Confusion. Irritability or tiredness. A fever or chills. Diarrhea. The first symptom in older adults may be confusion. In some cases, they may not have any symptoms until the infection has worsened. How is this diagnosed? This condition is diagnosed based on your medical history and a physical exam. You may also have other tests, including: Urine tests. Blood tests. Tests for STIs (sexually transmitted infections). If you have had more than one UTI, a cystoscopy or imaging studies may be done to determine the cause of the infections. How is this treated? Treatment for this condition includes: Antibiotic medicine. Pilg-dlz-jzxlmqm medicines to treat discomfort. Drinking enough water to stay hydrated. If you have frequent infections or have other conditions such as a kidney stone, you may need to see a health care provider who specializes in the urinary tract (urologist). In rare cases, urinary tract infections can cause sepsis. Sepsis is a life-threatening condition that occurs when the body responds to an infection. Sepsis is treated in the hospital with IV antibiotics, fluids, and other medicines. Follow these instructions at home: Medicines Take azqf-tqa-tjidzps and prescription medicines only as told by your health care provider. If you were prescribed an antibiotic medicine, take it as told by your health care provider. Do not stop using the antibiotic even if you start to feel better. General instructions Make sure you: ?Empty your bladder often and completely. Do not hold urine for long periods of time. ?Empty your bladder after sex. ?Wipe from front to back after urinating or having a bowel movement if you are female. Use each tissue only one time when you wipe. Drink enough fluid to keep your urine pale yellow. Keep all follow-up visits. This is important. Contact a health care provider if: Your symptoms do not get better after 1 2 days. Your symptoms go away and then return. Get help right away if: You have severe pain in your back or your lower abdomen. You have a fever or chills. You have nausea or vomiting. Summary A urinary tract infection (UTI) is an infection of any part of the urinary tract, which includes the kidneys, ureters, bladder, and urethra. Most urinary tract infections are caused by bacteria in your genital area. Treatment for this condition often includes antibiotic medicines. If you were prescribed an antibiotic medicine, take it as told by your health care provider. Do not stop using the antibiotic even if you start to feel better. Keep all follow-up visits. This is important. This information is not intended to replace advice given to you by your health care provider. Make sure you discuss any questions you have with your health care provider. Document Revised: 01/08/2021 Document Reviewed: 01/13/2021 [employer] Patient Education 2023 [employer]. Follow Up Care 11/17/2024 09:42:27 With:[facility] Address: When: Unknown Comments:Only if needed/new problems arise. No scheduled appointment indicated at this time. [facility] 12-15-2024 Note Patient Education Obstetrics and Gynecology Urinary Tract Infection, Adult A urinary tract infection (UTI) is an infection of any part of the urinary tract. The urinary tract includes the kidneys, ureters, bladder, and urethra. These organs make, store, and get rid of urine in the body. An upper UTI affects the ureters and kidneys. A lower UTI affects the bladder and urethra. What are the causes? Most urinary tract infections are caused by bacteria in your genital area around your urethra, where urine leaves your body. These bacteria grow and cause inflammation of your urinary tract. What increases the risk? You are more likely to develop this condition if: ??? You have a urinary catheter that stays in place. ??? You are not able to control when you urinate or have a bowel movement (incontinence). ??? You are female and you: ? Use a spermicide or diaphragm for control. ? Have low estrogen levels. ? Are . ??? You have certain genes that increase your risk. ??? You are sexually active. ??? You take antibiotic medicines. ??? You have a condition that causes your flow of urine to slow down, such as: ? An enlarged prostate, if you are male. ? Blockage in your urethra. ? A kidney stone. ? A nerve condition that affects your bladder control (neurogenic bladder). ? Not getting enough to drink, or not urinating often. ??? You have certain medical conditions, such as: ? Diabetes. ? A weak disease-fighting system (immunesystem). ? Sickle cell disease. ? Gout. ? Spinal cord injury. What are the signs or symptoms? Symptoms of this condition include: ??? Needing to urinate right away (urgency). ??? Frequent urination. This may include small amounts of urine each time you urinate. ??? Pain or burning with urination. ??? Blood in the urine. ??? Urine that smells bad or unusual. ??? Trouble urinating. ??? Cloudy urine. ??? Vaginal discharge, if you are female. ??? Pain in the abdomen or the lower back. You may also have: ??? Vomiting or a decreased appetite. ??? Confusion. ??? Irritability or tiredness. ??? A fever or chills. ??? Diarrhea. The first symptom in older adults may be confusion. In some cases, they may not have any symptoms until the infection has worsened. How is this diagnosed? This condition is diagnosed based on your medical history and a physical exam. You may also have other tests, including: ??? Urine tests. ??? Blood tests. ??? Tests for STIs (sexually transmitted infections). If you have had more than one UTI, a cystoscopy or imaging studies may be done to determine the cause of the infections. How is this treated? Treatment for this condition includes: ??? Antibiotic medicine. ??? Qikd-ufw-cupbtgy medicines to treat discomfort. ??? Drinking enough water to stay hydrated. If you have frequent infections or have other conditions such as a kidney stone, you may need to see a health care provider who specializes in the urinary tract (urologist). In rare cases, urinary tract infections can cause sepsis. Sepsis is a life-threatening condition that occurs when the body responds to an infection. Sepsis is treated in the hospital with IV antibiotics, fluids, and other medicines. Follow these instructions at home: Medicines ??? Take qjmf-uxd-hbqknni and prescription medicines only as told by your health care provider. ??? If you were prescribed an antibiotic medicine, take it as told by your health care provider. Do not stop using the antibiotic even if you start to feel better. General instructions ??? Make sure you: ? Empty your bladder often and completely. Do not hold urine for long periods of time. ? Empty your bladder after sex. ? Wipe from front to back after urinating or having a bowel movement if you are female. Use each tissue only one time when you wipe. ??? Drink enough fluid to keep your urine pale yellow. ??? Keep all follow-up visits. This is important. Contact a health care provider if: ??? Your symptoms do not get better after 1?2 days. ??? Your symptoms go away and then return. Get help right away if: ??? You have severe pain in your back or your lower abdomen. ??? You have a fever or chills. ??? You have nausea or vomiting. Summary ??? A urinary tract infection (UTI) is an infection of any part of the urinary tract, which includes the kidneys, ureters, bladder, and urethra. ??? Most urinary tract infections are caused by bacteria in your genital area. ??? Treatment for this condition often includes antibiotic medicines. ??? If you were prescribed an antibiotic medicine, take it as told by your health care provider. Do not stop using the antibiotic even if you start to feel better. ??? Keep all follow-up visits. This is important. This information is not intended to replace advice given to you by your health care provider. Make sure you di (more content not included)... [facility] 11-30-2024 History of Present illness Narrative Reason for Appointment: Patient ID: Michelle Godinez is a 29 y.o. female who presents for Pre-op Visit (/) Patient presents today for Pre Op appointment. Patient is scheduled to undergo Diagnostic Laparoscopy, possible ADINA, possible FOE, possible BSO on 12-25-[address] Campuzano at [facility]. Patient voiced that she recently had a CT Scan performed that showed an umbilical hernia. Patient voiced that her PCP has not setup any further management at this time for repair. MEDICATIONS Current Outpatient Medications Medication Instructions cholecalciferol (Vitamin D3) 25 MCG (1000 UT) tablet 1 tablet, Daily MV & Min w/FA-DHA ( Gummies) 0.18-25 MG chewable tablet 1 each, Daily valACYclovir (VALTREX) 500 mg, Oral, Daily ALLERGIES Allergies Allergen Reactions Wound Dressing Adhesive Itching PROBLEMS Active Ambulatory Problems Diagnosis Date Noted UTI symptoms 08/19/2023 Vaginal discharge 08/19/2023 Encounter for screening for cervical length ([facility]) 08/19/2023 Hematuria 08/19/2023 Resolved Ambulatory Problems Diagnosis Date Noted No Resolved Ambulatory Problems Past Medical History: Diagnosis Date 6 weeks follow-up ([facility]) Acute depression BMI 30.0-30.9,adult Breast lump on right side at 7 o'clock position Fibromyalgia Gallstones Genital herpes Hip pain, right Insomnia, idiopathic Miscarriage ([facility]) 2018 Spondyloarthropathy HISTORY PAST MEDICAL HISTORY SOCIAL HISTORY Past Medical History: Diagnosis Date 6 weeks follow-up ([facility]) Acute depression BMI 30.0-30.9,adult Breast lump on right side at 7 o'clock position Fibromyalgia Gallstones Genital herpes Hematuria Hip pain, right Insomnia, idiopathic Miscarriage ([facility]) 2018 Spondyloarthropathy Social History Tobacco Use Smoking [...] Procedure Laterality Date DILATION AND CURETTAGE 2018 [facility] TONSILLECTOMY & ADENOIDECTOMY AGE 13/> 2015 WISDOM TOOTH EXTRACTION REVIEW OF SYSTEMS Review of Systems: Review of Systems Constitutional: Negative. HENT: Negative. Eyes: Negative. Respiratory: Negative. Cardiovascular: Negative. Gastrointestinal: Negative. Genitourinary: Positive for dyspareunia, pelvic pain and vaginal pain. Musculoskeletal: Negative. Skin: Negative. Neurological: Negative. [...] nursing note reviewed. Exam conducted with a sprinkling system irrigator present. Vitals: Estimated body mass index is 32.42 kg/m as calculated from the following: Height as of 03/02/24: 5' 3 . Weight as of 10/19/24: 183 lb. BP: No LMP recorded. ASSESSMENT & PLAN ICD-10-CM 1. Pre-op examination Z01.818 2. Pelvic pain R10.2 3. Dyspareunia in female N94.10 Pre Op: Patient is doing well but has complaints of dyspareunia. I have discussed conservative management vs. surgical management with the patient in detail and patient desires surgical management at this time. Patient will undergo Diagnostic Laparoscopy, possible ADINA, possible FOE, possible BSO on 12/25/2024. Surgical consents were signed, mmc was reviewed, and patient is to proceed to [facility] OR. Follow Up: Patient is to follow up between 1-2 weeks post operative to assess proper healing and recovery from procedure. Documented by: Dr. Edward Campuzano DO documented in this encounter [facility] 10-19-2024 History of Present illness Narrative Reason [...] History: Procedure Laterality Date DILATION AND CURETTAGE 2017 VA TONSILLECTOMY & ADENOIDECTOMY AGE 13/> 2015 WISDOM [...] Campuzano DO documented in this encounter [facility] 10-01-2024 History of Present illness Narrative Reason [...] Procedure Laterality Date DILATION AND CURETTAGE 2018 VA TONSILLECTOMY & ADENOIDECTOMY AGE 13/> 2015 WISDOM [...] nursing note reviewed. Exam conducted with a sprinkling system irrigator present. Vitals: Estimated body mass index is [...] weekly for 3-6 months. Medications sent to [facility] in [place] and pharmacy note added that if patient needs medication further than the first 3 months then more refills will be sent as 3 month supply has currently been sent. Patient to ensure she is scheduled for her annual appointment prior to leaving office today. Documented by Eloisa Mondragon LPN on behalf of: Edward Campuzano DO documented in this encounter [facility] 09-23-2024 History of Present illness Narrative 5Reason for Appointment: Patient ID: Michelle Godinez is a 29 y.o. female who presents for No chief complaint on file. Patient presents today via telephone call for a telehealth appointment. Patients Phone #: [phone] (mobile) Date: 09/23/2024 Time: 9:57 AM of the visit Platform Used: Audio call performed via in house telephone system. Location of Patient and Provider: Patient at home, provider at clinic Consent for Telehealth: Patient provided verbal consent to conduct the visit virtually via audio only phone call Current Medications: has a current medication list which includes the following prescription(s): cholecalciferol, gummies, and valacyclovir. Medical History: Active Ambulatory Problems Diagnosis Date Noted UTI [...] History: Procedure Laterality Date DILATION AND CURETTAGE 2017 VA TONSILLECTOMY & ADENOIDECTOMY AGE 13/> 2014 WISDOM TOOTH EXTRACTION Allergies Allergen Reactions Wound Dressing Adhesive Itching Vitals: Estimated body mass index is 32.42 kg/m as calculated from the following: Height as of 03/02/24: 5' 3 . Weight as of 10/19/24: 183 lb. BP: No LMP recorded. Assessment/Plan No diagnosis found. Today's telehealth visit consisted of spending 5 minutes talking to patient on the phone. Documented by CHANEL Mims on behalf of: CHANEL Mims documented in this encounter [facility] 09-15-2024 History of Present illness Narrative Reason [...] Procedure Laterality Date DILATION AND CURETTAGE 2018 VA TONSILLECTOMY & ADENOIDECTOMY AGE 13/> 2015 WISDOM [...] nursing note reviewed. Exam conducted with a sprinkling system irrigator present. Vitals: Estimated body mass index is [...] Campuzano DO documented in this encounter [facility] 05-28-2024 History of Present illness Narrative Reason [...] Procedure Laterality Date DILATION AND CURETTAGE 2018 VA TONSILLECTOMY & ADENOIDECTOMY AGE 13/> 2015 WISDOM [...] nursing note reviewed. Exam conducted with a sprinkling system irrigator present. Vitals: Estimated body mass index is 32.62 kg/m as calculated from the following: Height as of 03/02/24: 5' 3 . Weight as of 04/21/24: 184 lb 1.9 oz. BP: No LMP recorded. ASSESSMENT & PLAN Patient presents for vaginal discharge. Patient voiced that she has a nez perce green/slime discharge on/off since delivery. Patient voiced this happens with wiping. Obtained vaginal cultures without difficulty and urine will also be sent out for culture. Terazol 7 sent to patients pharmacy to be used internally and externally. Patient will await results for further treatment if needed. Documented by Eloisa Mondragon LPN on behalf of: CHANEL Mims documented in this encounter [facility] 05-07-2024 Hospital Discharge instructions Patient Education 05/07/2024 [...] provider. Document Revised: 01/01/2023 Document Reviewed: 01/01/2023 [employer] Patient Education 2023 [employer]. Follow Up Care 04/24/2024 09:40:34 With:ZEYAD LEO, LEYDI Londono, URL Address: [address] [place] [place] [address] Business (1) When: only if needed [facility] 05-07-2024 Note Patient Education Caregiving [...] You have sig (more content not included)... [facility] 04-21-2024 History of Present illness Narrative Reason [...] Diagnosis Date 6 weeks follow-up Acute depression ([facility]) BMI 30.0-30.9,adult Breast lump on right side at 7 o'clock position Fibromyalgia Gallstones Genital herpes Hip pain, right Insomnia, idiopathic Miscarriage 2018 Spondyloarthropathy HISTORY PAST MEDICAL HISTORY SOCIAL HISTORY Past Medical History: Diagnosis Date 6 weeks follow-up Acute depression ([facility]) BMI 30.0-30.9,adult Breast lump on right side [...] History: Procedure Laterality Date DILATION AND CURETTAGE 2017 VA TONSILLECTOMY & ADENOIDECTOMY AGE 13/> 2015 WISDOM [...] Campuzano DO documented in this encounter [facility] 03-23-2024 History of Present illness Narrative Reason [...] Procedure Laterality Date DILATION AND CURETTAGE 2018 VA TONSILLECTOMY & ADENOIDECTOMY AGE 13/> 2015 WISDOM [...] CHANEL Mims documented in this encounter [facility] 03-02-2024 History of Present illness Narrative General [...] time. She states that she was at [facility] ER yesterday due to the pain [...] Procedure Laterality Date DILATION AND CURETTAGE 2018 VA TONSILLECTOMY & ADENOIDECTOMY AGE 13/> 2015 WISDOM [...] Procedure Laterality Date DILATION AND CURETTAGE 2018 VA TONSILLECTOMY & ADENOIDECTOMY AGE 13/> 2015 WISDOM TOOTH EXTRACTION Tobacco Use: Unknown (11/07/2023) Received from [employer], [employer] Patient History Smoking Tobacco Use: Never Smokeless [...] Theodore DO documented in this encounter [facility] 11-20-2023 Miscellaneous Notes Spoke with michelle and fern (spouse) about process for carrier screening for FOB. Both agreeable. Michelle was able to send copy of fern's insurance for the carrier order to be placed. Lexi Caballero aware of plan. Patient to see Lexi on 12/04 documented in this encounter [facility] 11-20-2023 Telephone encounter Note Spoke with michelle and fern (spouse) about process for carrier screening for FOB. Both agreeable. Karenclarence was able to send copy of fern's insurance for the carrier order to be placed. Lexi Caballero aware of plan. Patient to see Lexi on 12/04 [facility] 11-20-2023 Miscellaneous Notes Images from the [...] prior to that documented in this encounter [facility] 11-20-2023 Telephone encounter Note Images from [...] arrange for partner screening prior to that [facility] 11-07-2023 History of Present illness Narrative [facility] Maternal- Medicine Consult Note Reason For Consult: Single umbilical artery HPI: Michelle Godinez is a 28 y.o. at 24w6d with Estimated Date of Delivery: 02/21/24 who presented for consultation from Dr. Justen, Edward R, DO regarding Chief Complaint Patient presents with [...] autism FOB paternal aunt paternal grandfather ? Gzadvcjl-unm-bksvp syndrome Denies smoking, alcohol or other substance [...] regardin. 24 weeks gestation of - PNV no.[id number] 400 mcg-35 mg- 25 mg-5 mg tablet,chewable; Take 2 gummies daily during the Dispense: 60 tablet; Refill: 6 - Unlisted Lab Test; Future 2. Single umbilical artery - PNV no.[id number] 400 mcg-35 mg- 25 mg-5 mg tablet,chewable; [...] is a concern for a history of Kjmmnqwl-vud-cmgym syndrome. This can be an autosomal dominant condition. She tells me that the father of the baby does not have the condition however he has not also been tested. Nhjapyem-zym-ferka syndrome can present with a variable degree [...] Please monitor patient mood Please notify the mobile developer about the family history. I also recommended to the patient to notify the mobile developer about her other children so they can be examined and further tested if indicated Plan reviewed with patient. She vocalized understanding all questions answered. The patient is to continue with routine care in your office Thank you for allowing me to participate in her care. Please contact me if you have any concerns. Mitul Rdz MD, FACOG (she/hers) Maternal- Medicine [facility] [address] [facility] [address] [place] [address] [facility], the CDC, and other organizations representing maternal and public health professionals recommend that , , and lactating people and those considering receive the COVID-19 vaccination. Vaccination is the best method to reduce maternal and complications of SARS-CoV-2 infection. This document was created with [employer] technology. Though I make every effort to review the dictation as it is transcribed, on occasion the spoken word can be misinterpreted by the technology leading to inappropriate words, phrases, or sentences. This note is addressed to the requesting provider as a consultation for clinical guidance. Specific medical abbreviations are occasionally used and those are generally approved by the [place]?Board of?Obstetrics and?Gynecology?as well as?[employer] abbreviations. The above plan of care was based solely on the diagnoses for which a consultation was requested. ?More frequent testing may be indicated based on her other medical/obstetrical conditions. The management of other or medical conditions is beyond the scope of requested consultation and will continue to be followed by the primary commercial housekeeper or primary care provider. Note to patient: [...] yes Have you been seen here at [facility] in a previous ? no Recent ER visits or hospitalizations? Patient was seen on Saturday or Saturday for consistent contractions that have since resolved. Patient was told there were no changes to the cervix. Bring blood sugar log or meter with you today? (Please bring them with you for every visit at [facility]) Traveled outside the country in the past 6 month no Any concerns that you would like me to mention to the provider today? no Blood drawn for carrier screening testing. Patient tolerated well. Specimen sent to lab documented in this encounter [employer] 07-19-2023 History of Present illness Narrative Reason for Appointment: Patient ID: Michelel Godinez is a 27 y.o. female who [...] Procedure Laterality Date DILATION AND CURETTAGE 2018 VA TONSILLECTOMY & ADENOIDECTOMY AGE 13/> 2015 WISDOM [...] sent for nausea to pharmacy. Pt desires [place] [address] and understands to have it done at 10 weeks along w/her labs. Follow Up: Patient is to have labs drawn at directed and return to office for initial OB appointment with provider. Patient may call office as needed with any concerns or questions. Nurse Visit Completed by: Cori Daniel MA documented in this encounter [facility] 01-16-2022 Note OB ultrasound for bi [...] by: Cecelia FOOTE Date: 2022-01-16 21:33 [facility] 01-16-2022 Note OB ultrasound for bi [...] by: Cecelia FOOTE Date: 2022-01-16 21:33 [facility] 01-15-2022 Note PROCEDURE: US KIDNEY S, [...] by: IGOR DIAZ Date: 2022-01-15 10:10 [facility] Evaluation + Plan note No data available for this section [facility] Evaluation note Diagnosis Missed menses Nausea Nausea alone documented in this encounter [facility] HealthcareEvaluation noteNo assessment information [facility] Work Phone: Evaluation note* Diagnosis 6 weeks follow-up documented in this encounter [facility] HealthcareEvaluation note* Diagnosis Yeast infection Encounter for fertility planning Recurrent UTI Urinary tract infection, site not specified documented in this encounter [facility] HealthcareEvaluation note* Diagnosis Symptomatic cholelithiasis- Primary documented in this encounter [facility] HealthcareEvaluation note* Diagnosis Yeast infection documented in this encounter [facility] HealthcareEvaluation note* Diagnosis 24 weeks gestation of - 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 Diagnosis Pelvic pain in female Unspecified symptom associated with female genital organs Exposure to STD Vaginal discharge Leukorrhea, not specified as infective documented in this encounter [facility] HealthcareEvaluation note* Diagnosis Vaginal discharge Leukorrhea, not specified as infective BV (bacterial vaginosis) Unspecified vaginitis and vulvovaginitis documented in this encounter [facility] HealthcareEvaluation note* Diagnosis Well woman exam with routine gynecological exam Routine gynecological examination documented in this encounter [facility] HealthcareEvaluation note* Diagnosis Pelvic pain in female- Primary Unspecified symptom associated with female genital organs documented in this encounter [facility] HealthcareEvaluation note* Diagnosis Pre-op examination Pelvic pain Dyspareunia in female [facility] No data available for this section [facility]ructionsNot on filedocumented in this encounter [facility] SystemInstructionsNot on filedocumented in this encounter [facility]* Attachments The following attachments cannot be sent through Care Everywhere. * Preeclampsia (Palauan) * Movement (Palauan) documented in [facility] System[facility] note No data available for this section [facility] Summary Purpose Family History No Family History Records FoundNo Family History Records FoundNo Family History Records FoundNo Family History Records Found No data available for this section No Family History Records Found No data available for this section No Family History Records FoundNo Family History Records Found Advance Directives No Advanced Directives Records FoundDocuments on File Type Date Recorded 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 Advance Directives and Livin g Will 03/05/2020 2:18 PM Advance Directive Response Recorded Date/ Time Advance Directives No February 09, 2017 9:35am Assessments Diagnosis Chronic low back pain, unspecified back pain laterality, unspecified whether sciatica present Additional Source Comments INFORMATION SOURCE (unrecogn ized section and content) DATE CREATED AUTHOR 11/08/2018 [facility] DATE CREATED AUTHOR AUTHOR'S ORGANIZ ATION 03/21/2020 [facility] DATE CREATED AUTHOR AUTHOR'S ORGANIZ ATION 08/04/2022 [facility] DATE CREATED AUTHOR AUTHOR'S ORGANIZ ATION 11/09/2023 [facility] DATE CREATED AUTHOR AUTHOR'S ORGANIZ ATION 12/02/2024 [facility] dical Specialists [facility] DATE CREATED AUTHOR AUTHOR'S ORGANIZ ATION 12/16/2024 [facility] DATE CREATED AUTHOR AUTHOR'S ORGANIZ ATION 12/18/2024 [facility] Reason for Visit (unrecogniz ed section and [...] time. She states that she was at [facility] ER yesterday due to the pain and they gave her pain medicine. Reason Onset Date Comments Abdominal Pain 03/04/2024 Patient schedule d for surgery on 03/10. Patient is complaining of pain radiating from breast bone to belly button and asking if this is normal. Reason Comments Vessel cord Reason Comments pelvic pain Reason Comments Follow-up Reason Comments Gynecologic Exam Reason Comments Pre-op Visit Care Teams (unrecognized sec tion and content) Team Status: Inactive Member Role Status Dates Janie Theodore DO Attending Provider Active Star t: March 10, 2024 End: March 10, 2024 Top Screw Relationship Specialty Start Date End Date Raudel Osborne MD [address] [place] [address] PCP - General Family Medicine 03/02/24 Team Status: Inactive Member Role Status Dates Igor Becerra MD Attending Provider Active St art: April 16, 2024 End: April 16, 2024 Top Screw Relationship Specialty Start Date End Date Raudel Osborne MD [address] [place] [address] PCP - General Family Medicine 03/02/24 Top Screw Relationship Specialty Start Date End Date Raudel Osborne MD [address] [place] [address] PCP - General Family Medicine 03/02/24 Edward Campuzano DO [address] [place] [address] [place] [place] [address] PCP - [facility] 03/17/24 Top Screw Relationship Specialty Start Date End Date Raudel Osborne MD [address] [place] [address] PCP - General Family Medicine 03/02/24 Top Screw Relationship Specialty Start Date End Date Raudel Osborne MD [address] [facility] [place] [address] PCP - General Family Medicine 03/02/24 Top Screw Relationship Specialty Start Date End Date Raudel Osborne MD [address] [facility] [place] [address] PCP - General Family Medicine 03/02/24 Edward Campuzano DO [address] [place] [address] [place] [address] PCP - [facility] 03/17/24 Top Screw Relationship Specialty Start Date End Date Raudel Osborne MD [address] [facility] [place] [address] PCP - General Family Medicine 03/02/24 Edward Campuzano DO [address] [place] [address], [place] [address] PCP - [facility] 03/17/24 Top Screw Relationship Specialty Start Date End Date Raudel Osborne MD [address] [facility] [place] [address] PCP - General Family Medicine 03/02/24 Edward Campuzano DO [address] [place] [address], [place] [address] PCP - [facility] 03/17/24 Top Screw Relationship Specialty Start Date End Date Raudel Osborne MD [address] [facility] [place] [address] PCP - General Family Medicine 03/02/24 Top Screw Relationship Specialty Start Date End Date Raudel Osborne MD [address] [place] [address] PCP - [facility] 03/02/24 Edward Campuzano DO [facility] [address] Pat[address] [place] [address] PCP - [facility] 03/17/24 Top Screw Relationship Specialty Start Date End Date Raudel Osborne MD [address] [place] [address] PCP - [facility] 03/02/24 Edward Campuzano DO [facility] [address] Pat[facility] PCP - [facility] 03/17/24 Top Screw Relationship Specialty Start Date End Date Raudel Osborne MD [address] [facility] [place] [address] PCP - [facility] 03/02/24 Edward Campuzano DO [facility] [place] [address] PCP - [facility] 03/17/24 Top Screw Relationship Specialty Start Date End Date Raudel Osborne MD PCP - [facility] 03/02/24 Edward Campuzano DO [facility] [place] [address] PCP - [facility] 03/17/24 Top Screw Relationship Specialty Start Date End Date Raudel Osborne MD PCP - [facility] 03/02/24 Edward Campuzano DO [address] [place] [address] PCP [facility] 03/17/24 Team Status: Inactive Member Role Status Dates Ilir Marshall MD Attending Provider Active St art: November 15, 2024 End: November 15, 2024 Top Screw Relationship Specialty Start Date End Date Raudel Osborne MD PCP - [facility] 03/02/24 Edward Campuzano DO [address] [place] [address] [facility] 03/17/24 Top Screw Relationship Specialty Start Date End Date Raudel Osborne MD [address] [place] [address] PCP - [facility] 03/02/24 Edward Campuzano DO [address] [place] [address] [facility] 03/17/24 Goals (unrecognized section and content) [...] BE BASED ON THE PRIMARY CLINICAL RECORDS. [facility] [employer] [facility]. provides no warranty or guarantee of the accuracy or completeness of information in this document.
[2024-12-25 07:22] LABS: Hematocrit 39.1 % (36.0-48.0); Hemoglobin 12.7 g/dL (12.0-16.0); Immature Granulocytes Abs Auto 0.03 10^3/uL (0.00-0.03); Immature Granulocytes Pct Auto 0.4 % (0.0-0.5); Lymphocytes Absolute Auto 2.3 10^3/uL (1.2-3.8); Mean Corpuscular HGB Conc 32.5 g/dL (29.9-35.2); Mean Corpuscular Hemoglobin 29.1 pg (26.7-34.0); Mean Corpuscular Volume 89.7 fL (81.0-99.0); Platelet Count 283 10^3/uL (150-450); Red Blood Count 4.36 10^6/uL (4.20-5.40); White Blood Count 7.2 10^3/uL (4.0-11.0)
--- NOTE | 2024-12-25 11:15 | P.ON_ITS ---
Brief Operative Note Date of procedure: 12/25/24 Pre-op diagnosis general: pelvic pain Post-op diagnosis: same as pre-op Procedure: NAME OF PROCEDURE: [diagnostic laparoscopy ] PROCEDURE: The patient was taken back to the Operating Room where she was placed in dorsal lithotomy position after given general anesthesia. The patient was prepped and draped in normal sterile fashion. A sponge stick was placed into the patient's vagina. Attention was turned to the patient's abdomen, where a small umbilical incision was made. The fascia was tented using Destinee clamps and the fascia was entered sharply. Confirmation of intraabdominal placement of the 10 mm port was confirmed under direct visualization using a laparoscope. The patient's abdomen was then insufflated using CO2 gas with approximately 4 liters. A second port was placed left laterally, this was done under direct visualization with a 5 mm port. Survey of the patient's abdomen demonstrated normal liver and gallbladder. Survey of the patient's pelvic anatomy demonstrated normal appearing rt and lt ovary and tubes as well as normal appearing uterus. No endometrial implants could be noted, no evidence of any pelvic disease was seen, normal appearing pelvic cavity. All instruments were removed from the patient's abdomen. The patient's abdomen was deinsufflated of CO2 gas. The patient tolerated the procedure well. Sponge stick was removed from the patient's vagina. The patient's infraumbilical fascia was closed using #0 Vicryl on a GI needle. The patient's skin was closed laterally and infraumbilically using 4-0 Vicryl. The patient tolerated the procedure well. Sponge, lap and needle counts were correct x 2. The patient was taken to Recovery Room in stable condition. Anesthesia: SABRINA Surgeon: Edward Campuzano Agency Cashier: Siena Rooney Estimated blood loss (mL): 5 Pathology: none sent Condition: stable Disposition: PACU Urinary Catheter Management Urinary Catheter Management Urethral: Cath placed during this visit: no
--- NOTE | 2024-12-25 12:14 | PC.NURSE ---
LIZ EATING POPCICLE AND COOKIES UPON ARRIVAL TO PHASE 2
[2024-12-25] MEDS: BENZOCAINE/MENTHOL LOZENGE 1 LOZENGE MM (12:42)
--- NOTE | 2024-12-25 12:54 | PC.NURSE ---
dressing #1 saturated with blood from coughing alot which caused pressure and area is draining bloody drainage. Changed dressing at the umbilicus clean and dry at this time. Patient tolerated well.
[2024-12-25] MEDS: HYDROCODONE/ACET 5-325 MG TABLET 1 TAB PO (13:10)
--- NOTE | 2024-12-25 13:35 | PC.NURSE ---
Umbilical dressing chnged with telfa and opsite after pressure to site for 5 mins; no active drainage noted. Peripad dry
--- NOTE | 2024-12-25 13:44 | PC.NURSE ---
Up to bathroom and voids clear yellow without difficulty
--- NOTE | 2024-12-25 13:50 | PC.NURSE ---
Umbilical dressing dry and no change in oassessment of other dressing.
== END 2024-12-25 13:40 | disposition home or self-care (01) ==
LOC: SURGOUT 07:13
PROVIDERS: PCP Nurse Practitioner Family; Visit Provider Obstetrics & Gynecology
PROC: (CPT 840; principal; 2024-12-25 08:35)
DX: R10.2 Pelvic and perineal pain (principal); N94.10 Unspecified dyspareunia; Z90.49 Acquired absence of other specified parts of digestive tract; M79.7 Fibromyalgia; K21.9 Gastro-esophageal reflux disease without esophagitis
CPT/HCPCS: 49320; 36415; 84702; 85025; J1100; J1885; J2250; J2405; J2704; J3010

== ENCOUNTER 2025-02-22 13:03 | Outpatient (OUT) | payer OTHER, SELFPAY ==
--- OUTSIDE RECORDS SUMMARY | 2017-06-24 06:15 | XMS_ITS | Continuity of Care Document ---
Author Organization [facility] Address [address] [place] [id number] Phone Care Team Providers Care Banana Loader Name Role Phone Nas ALTON ALTON Eloisa Unavailable Unavaila ble Allergies, Adverse Reactions, Alerts Substance Reaction Status Criticality No Known Allergies Active No Inform ation Medications Medication Instructions Dosage Effective Dates (start - stop) Status Comments + DHA 28 mg iron-800 mcg-200 mg oral pack 1 PO QD - Active May substitute for one covered by insurance promethazine 25 mg tablet take 1 tablet by oral route every 4 - 6 hours as needed 25 MG - Active Pepcid 40 mg tablet take 1 tablet by oral route every day at bedtime 40 MG - Active 28 mg iron-800 mcg tablet 1 daily - Active gabapentin 300 mg capsule take 1 capsule by oral route 2 times every day 300 MG - No Longer Active gabapentin 300 mg capsule take 1 capsule by oral route 2 times every day 300 MG - No Longer Active Problems Condition Type Effective Dates (start - stop) Clini say Status Comments No Known Problems Procedures Procedure Date OFFICE/OUTPATIENT VISIT, EST URINE TEST URINALYSIS NONAUTO W/O SCOPE URINE TEST URINE TEST URINE TEST URINE TEST URINE TEST PREV VISIT, EST, AGE 18-39 URINE TEST OFFICE/OUTPATIENT VISIT, NEW Advance Directives Directive Yes / No Effective Date File Name No Information Encounters Encounter Description Practice Location Reason(s) For Visit Diagnoses Date Provider Providers Copied on Encounter OFFICE/OUTPAT IENT VISIT, EST [facility], [address], [place], [id number] , [place] tel: [phone] [facility] Less than 8 weeks gestation of pregnancyEncounter for supervision of normal 1st , 1st trimester 8 [facility] Eloisa. [address], [place], [id number] , [place]. tel: [phone] [facility], [address] [place] [address], [id number] , [place] tel: [phone] [facility] anxiety and anger (chief complaint) Natan: (chief complaint) Encounter for test, result positiveAnxiety disorder, unspecifiedMajor depressive disorder, single episode, unspecified 8 Natan Frausto. [address] [place], [address], [place]. tel: [phone] [facility], [address] [place] [address], [id number] , [place] tel: [phone] [facility] Fibrocystic disease of breast 7 [facility] Eloisa. [address] [place] [address], [id number] , [place]. 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 [address] [place] [address], [id number] , [place]. tel: [phone] OFFICE/OUTPAT IENT VISIT, [facility], [address], [place], [id number] , [place] tel: [phone] [facility] and (chief complaint) FibromyalgiaAnxiety disorder, unspecifiedParanoia 7 Natan Frausto. [address] [place], [address], [place]. tel: [phone] Family History Family Member Type Diagnosis Age At Onset Father Problem (finding) Irritable bowel syndrom e Father Problem (finding) depression Mother Problem (finding) Alive and well Mother Problem (finding) hypertension Mother Problem (finding) migraine Mother Problem (finding) Lymphoma Father Problem (finding) alcoholism Brother Problem (finding) Alive and well Father Problem (finding) asthma Father Problem (finding) Alive and well Father Problem (finding) migraine Father Problem (finding) attention deficit hyper activity disorder Payers Payer name Insurance type Covered libertarian ID Authorjo pacheco(s) [employer] Medicaid [place] [id number] Medicaid Wrap - [facility] [place] [id number] Social History Type Description Quantity Date Captured Comments Alcohol Use Details Unknown Caffeine Use Details Unknown Tobacco Use Status No Information Smoking Status No Information Sex Female Yes - Patient is cur rently Sexual Orientation Straight or heterosexual Gender Identity Female Chief Complaint And Reason For Visit No Information Reason For Referral Reason For Referral No Information Plan Of Treatment Date Type Action Status Referral Ordered: referred to Psychiatry (related to Anxiety disorder, unspecified) ordered Referral Ordered: referred to Psychiatry ordered Referral Ordered: referred to Psychiatry ?schizophrenia (related to Paranoia) ordered History Of Present Illness Encounter Date Complaint History Of Prese nt Illness Natan: A 21 year old wi th a Hx. of anxiety who stayed in the house and I didn't like alot of people and I don't trust people, so didn't want to go outside unless it is with someone else. Also dealt with this by chewing on fingernails and biting tongue. Shakes alot. Has had panic attacks followed by stuttering. She has never had good psychotherapy. LMP was 4 weeks ago. No other significant medical illnesses. Surgery was a tonsillectomy/adenoidectomy. Does not smoke. Had some emesis/nausea about ten to 14 days ago. anxiety and anger Patient has be en having alot of anxiety for many years (stays in her house, cant go placed by herself out of fear). Has alot of anger. Says she bites her nails and chews her tongue. She has panic attacks once or twice a week. Feels like she can't breathe, heart racing. Patient is trying to have a baby. period nine days late. Test today was positive. Put on Susans schedule saturday. Nico Grayson RN annual exam Currently pregna nt: no. Patient is contemplating . The patient states she uses none for control. Last LMP was 05/15/2017. Her menses is regular with normal flow with a frequency of >28 days. Tobacco cessation has been discussed. She does not drink alcohol. Additional information: Patient is here for annual exam and desires . Patient states she has not used BC for over a year without success. May desires assistance with fertility in the future. Has been for almost 6 months and has been with her partner for 4 years. 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 and and states she g ets paranoid and that people are following her. She recalls this started occurring when she was little. Father is paranoid schizophrenic and her paternal grandmother and her maternal grandfather. She also has feelings of agoraphobia. Functional Status Date Functional Assessmen t No Information Instructions Date Instruction Additional Infor debora Encouraged monthly B SE. Recommend calcium 1000mg QD. Encouraged good dietary intake and exercise. Laboratory specimens sent to lab. Patient to call in 2 weeks if desires results. Dsicussed ovulation, timing of IC. Encouraged to continue taking PNV daily. 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 Patient to call in 1 week for results Related to - STD screen Assessments Type Assessment Date assessment Less than 8 weeks gestation of weston romero assessment Encounter for superv ision of normal 1st , 1st trimester Mental Status Date Cognitive Assessment Orientation - [place] ed to time, place, person, situation. Patient Care Teams Name Effective Dates (start - stop) Status Members No Information
--- OUTSIDE RECORDS SUMMARY | 2023-10-18 09:00 | XMS_ITS ---
Author Organization [facility] Address [address] [place] [address] Care Team Providers Care Data Analytics Developer Name Role Phone Kylie Crum Primary Care Provider [phone] Juliet Maurer [phone] REASON FOR VISIT PROPHY Encounters Encounter Location Date Provider Diagnosis [place] [address] [facility] [place] [address] 10/18/2023 Juliet Wilkins Plan Of Treatment No Information Progress Notes * HERBERT SANDY JDOB: 7 (29 yo F)Acc No.[id number]:10/18/2023 Patient: SANDY APARICIO Provider: Barry Albert :1995 A ge:28 Y S ex:Female Date:10/18/2023 Address:[address] [facility] Pcp:Kylie Crum Subjective: * Chief Complaints: * 1 . PROPHY. * Medical History: Objective: * Vitals: Assessment: Plan: * Treatment: * Images: * Electronic signature of Ellen Wilkins on 02/22/2025 at 01:08 PM EDT Sign off status: Pending * Provider: Barry Albert Date: 0 10/18/2023 Generated for Printi ng/Faxing/eTransmitting on: 0 02/22/2025 01:08 PM EDT
--- OUTSIDE RECORDS SUMMARY | 2023-11-20 07:30 | XMS_ITS ---
Author Organization [facility] Servic es Address [address] [place] [address] Care Team Providers Care Loan Closer Name Role Phone Kylie Crum Primary Care Provider [phone] Juliet Maurer [phone] REASON FOR VISIT PROPHY Encounters Encounter Location Date Provider Diagnosis [place] [address] [facility] [place] [address] 11/20/2023 Juliet Wilkins Plan Of Treatment No Information Progress Notes * HERBERT SANDY JDOB: [birth year] (29 yo F)Acc No.[id number]:11/20/2023 Patient: SANDY APARICIO Provider: Barry Albert :1995 A ge:28 Y S ex:Female Date:11/20/2023 Address:[address] [facility] Pcp:Kylie Crum Subjective: * Chief Complaints: * 1 . PROPHY. * Medical History: Objective: * Vitals: Assessment: Plan: * Treatment: * Images: * Electronic signature of Ellen Wilkins on 02/22/2025 at 01:08 PM EDT Sign off status: Pending * Provider: Barry Albert Date: 0 11/20/2023 Generated for Printi ng/Faxing/eTransmitting on: 0 02/22/2025 01:08 PM EDT
--- OUTSIDE RECORDS SUMMARY | 2023-12-20 09:00 | XMS_ITS ---
Author Organization [facility] Servic es Address [address] [place] [address] Care Team Providers Care Senior Power Scheduler Name Role Phone Kylie Crum Primary Care Provider Tricia Cortes [phone] REASON FOR VISIT FILLING Encounters Encounter Location Date Provider Diagnosis [place] [address] [place] [address] 12/20/2023 Tricia Morfin Plan Of Treatment No Information Progress Notes * SANDY GODINEZDOB: 7 (29 yo F)Acc No.[id number]:12/20/2023 Patient: Madhu MORA SANDY Reddy Provider: Xi MORFIN DDS :1995 A ge:28 Y S ex:Female Date:12/20/2023 Address:[address] [facility] Pcp:Kylie Crum Subjective: * Chief Complaints: * 1 . FILLING. * Medical History: Objective: * Vitals: Assessment: Plan: * Treatment: * Images: * Electronic signature of Dee Morfin DDS on 02/22/2025 at 01:09 PM EDT Sign off status: Pending * Provider: Xi MORFIN DDS Date: 12/20/2023 Generated for Thomi jerald/Catrachita/eTransmitting on: 02/22/2025 01:09 PM EDT
--- OUTSIDE RECORDS SUMMARY | 2024-03-03 06:30 | XMS_ITS ---
Author Organization [facility] Address [address] [place] [address] Care Team Providers Care Bit Shaver Name Role Phone Kylie Crum Primary Care Provider [phone] Darshan Juliet Wilkins [phone] REASON FOR VISIT 6 MONTHS Encounters Encounter Location Date Provider Diagnosis [place] [address] [place] [address] 03/03/2024 Juliet Wilkins Plan Of Treatment No Information Progress Notes * SANDY GODINEZ JDOB: [birth year] (29 yo F)Acc No.[id number]:03/03/2024 Patient: SANDY APARICIO Provider: Barry Albert :1995 A ge:28 Y S ex:Female Date:03/03/2024 Address:[address] [facility] Pcp:Kylie Crum Subjective: * Chief Complaints: * 1 . 6 MONTHS. * Medical History: Objective: * Vitals: Assessment: Plan: * Treatment: * Images: * Electronic signature of Ellen Wilkins on 02/22/2025 at 08:54 AM EDT Sign off status: Pending * Provider: Barry Albert Date: 0 03/03/2024 Generated for Printi ng/Faxing/eTransmitting on: 02/22/2025 08:54 AM EDT
--- OUTSIDE RECORDS SUMMARY | 2024-11-03 08:49 | XMS_ITS ---
Author Organization [facility] in [place] Address [address] [place] [address] Care Team Providers Care Grain Inspector Name Role Phone Noemi Jiang Primary Care Provider REASON FOR VISIT xray Encounters Encounter Location Date Provider Diagnosis [facility] [address] [place] [address] 11/03/2024 Noemi Jiang Back pain M54.9 Assessments Encounter Date Diagnosis (ICD Code) Assessment Notes Treatment Notes Treatment Clinical Notes Section Notes 11/03/2024 Back pain (ICD-10 - M54.9) Plan Of Treatment Pending Test Test Name Order Date XR SCOLIOSIS SERIES 2 TO 3 VIEWS 025 Progress Notes * Domenic GODINEZDOB:1995 (29 yo F)Acc No.[id number]:11/03/2024 Patient: Domenic APARICIO :1995 A ge:29 Y S ex:Female Address:[address] [place], [address] Subjective: * Chief Complaints: * X ray * Medical History: * Surgical History: * Hospitalization/Major Diagno stic Procedure: * Medications: Objective: * Vitals: * Physical Examination: Assessment: * Assessment: 1. B ack pain - M54.9 (Primary) Plan: * Treatment: * Procedure Codes: * true * Date: Generated for Printi ng/Faxing/eTransmitting on: 0 02/22/2025 01:08 PM EDT
--- OUTSIDE RECORDS SUMMARY | 2024-11-06 11:05 | XMS_ITS ---
Author Organization [facility] [place] Address [address] [place] [address] Care Team Providers Care Entry Level Sales Representative Name Role Phone Apolinar Noemi Primary Care Provider Reason For Referral Diagnosis 1 Mild scoliosis (M41. 9) Referral Organization [facility] Referring Provider First Name Noemi Referring Provider Last Name Apolinar Referring Provider Speciality Family Med icine Referred Provider Josue Sagastume Referred Provider Specialty Orthopedic S urgery Referral Priority Routine REASON FOR VISIT xray Problems Problem Type SNOMED Code ICD Code Onset Dates Problem Status W/U Status Risk Notes Problem Scoliosis (107829619) Mild scoliosis (M41.9) Active confirmed Encounters Encounter Location Date Provider Diagnosis [facility] [address] [place] [address] 11/06/2024 Noemi Jiang Mild scoliosis M41.9 Assessments Encounter Date Diagnosis (ICD Code) Assessment Notes Treatment Notes Treatment Clinical Notes Section Notes 11/06/2024 Mild scoliosis (ICD-10 - M41.9) Plan Of Treatment Referrals Referral Date Details 11/06/2024 11/06/2024, Josue loyd Progress Notes * Domenic GODINEZDOB:1995 (29 yo F)Acc No.[id number]:11/06/2024 Patient: Domenic APARICIO :1995 A ge:29 Y S ex:Female Address:[address] [place], [address] Subjective: * Chief Complaints: * X ray * Medical History: * Surgical History: * Hospitalization/Major Diagno stic Procedure: * Medications: Objective: * Vitals: * Physical Examination: Assessment: * Assessment: 1. M ild scoliosis - M41.9 (Primary) Plan: * Treatment: * Procedure Codes: * true * Date: Generated for Thomi jerald/Catrachita/eTransmitting on: 0 02/22/2025 01:07 PM EDT Consultation Request Notes Referral Date Referring Provider Referred Provider Not es 11/06/2024 Noemi Jiang Steven
--- OUTSIDE RECORDS SUMMARY | 2024-11-10 05:00 | XMS_ITS ---
Author Organization [facility] Address [address] [place] [address] Care Team Providers Care Line Installer Name Role Phone Kylie Crum Primary Care Provider REASON FOR VISIT FILLING Encounters Encounter Location Date Provider Diagnosis [place] [address] [place] [address] 11/10/2024 Kylie Crum Plan Of Treatment No Information Progress Notes * SANDY GODINEZDOB: [birth year] (29 yo F)Acc No.[id number]:11/10/2024 Patient: Madhu MORA SANDY Reddy Provider: Andrew Crum DDS :1995 A ge:29 Y S ex:Female Date:11/10/2024 Address:[address] [place], [place] [id number] Subjective: * Chief Complaints: * 1 . FILLING. * Medical History: Objective: * Vitals: Assessment: Plan: * Treatment: * Images: * Electronic signature of Cecile Crum DDS on 02/22/2025 at 08:53 AM EDT Sign off status: Pending * Provider: Andrew Crum DDS Date: 11/10/2024 Generated for Nathan marques/Catrachita/eTransmitting on: 0 02/22/2025 08:53 AM EDT
--- OUTSIDE RECORDS SUMMARY | 2024-11-16 10:00 | XMS_ITS ---
Author Organization [facility] in [place] Address [address] [place] [address] Care Team Providers Care Remote Sensing Technologist Name Role Phone Noemi Jiang Primary Care Provider Allergies No Known Allergies REASON FOR VISIT [...] Notes Patient is a nonsmoker Vital Signs Blood pressure systolic 112 mm Hg 11/17/19 25 Blood pressure diastolic 82 mm Hg 025 Height 63 in 11/16/2024 Weight 180 lbs 11/16/2024 BMI 31.88 kg/m2 11/16/2024 Encounters Encounter Location Date Provider Diagnosis [facility] [address] [place] [address] 11/16/2024 Noemi Jiang Frequent UTI N39.0 ; [...] Notes * HERBERT DomenicDOB:1995 (29 yo F)Acc No.[id number]:11/16/2024 Progress Note Patient: Domenic APARICIO Provider: Grecia Jiang ([facility]), FRAME ASSEMBLER :1995 A ge:29 Y S ex:Female Date:11/16/2024 Address:[address] [place] [address], [id number] Check In:01:49 PM ESTCheck O ut:02:30 PM [...] Surgical History: T onsillectomy , D&C , [place] teeth , Gallbladder 03/10/24. * Hospitalization/Major Diagno [...] Electronically signed by Sveta Jiang , PHAM, FREIGHT DISPATCHER.FRAME [id number] on 11/17/2024 at 03:59 PM EDT Sign off status: Completed Visit Status: C HK (Check Out) true * Provider: Grecia Jiang ([facility]), FRAME ASSEMBLER Date: 11/16/2024 Generated for Nathan marques/Catrachita/eTransmitting on: 0 02/22/2025 01:06 PM EDT History and Physical Notes * [...]
--- OUTSIDE RECORDS SUMMARY | 2024-11-18 06:20 | XMS_ITS ---
Author Organization [facility] in [place] Address [address] [place] [address] Care Team Providers Care Skip Tender Name Role Phone Apolinar Noemi Primary Care Provider Reason For Referral Diagnosis 1 Recurrent UTI (N39.0 ) Referral Organization [facility] Referring Provider First Name Noemi Referring Provider Last Name Apolinar Referring Provider [facility] mora Referred Provider Yuliana Lomeli Referred Provider Specialty Urology Referral Priority Routine REASON FOR VISIT review US Encounters Encounter Location Date Provider Diagnosis [facility] ([place], [place]) [address] [place] [address] 11/18/2024 Noemi Jiang Recurrent UTI N39.0 Assessments Encounter Date Diagnosis (ICD Code) Assessment Notes Treatment Notes Treatment Clinical Notes Section Notes 11/18/2024 Recurrent UTI (ICD-10 - N39.0) Plan Of Treatment Referrals Referral Date Details 11/18/2024 11/18/2024, Yuliana mendez Progress Notes * Domenic GODINEZDOB:1995 (29 yo F)Acc No.[id number]:11/18/2024 Patient: Domenic APARICIO :1995 A ge:29 Y S ex:Female Address:[address] [place], [address] Subjective: * Chief Complaints: * r eview US * Medical History: * Surgical History: * Hospitalization/Major Diagno stic Procedure: * Medications: Objective: * Vitals: * Physical Examination: Assessment: * Assessment: 1. R ecurrent UTI - N39.0 (Primary) Plan: * Treatment: * Procedure Codes: * true * Date: Generated for Nathan marques/Catrachita/Manjulaitting on: 0 02/22/2025 01:08 PM EDT Consultation Request Notes Referral Date Referring Provider Referred Provider Not es 11/18/2024 Noemi Jiang Kathy
--- OUTSIDE RECORDS SUMMARY | 2024-12-01 10:10 | XMS_ITS ---
Author Organization [facility] Address [address] [place] [address] Care Team Providers Care Driller Hand Name Role Phone Noemi Jiang Primary Care Provider Percy Melida Escalera Unavailable Allergies No Known Allergies REASON FOR VISIT SCOLI/THORACIC, Neck pain, thoracic pain, low back pain Social History Tobacco Use: Social History Observation Description Date Details (start date - stop date) Never Smoker NA - NA AUDIT-C (Standard) Question Answer Notes Did you have a drink containing alcohol in the p ast year? No Points 0 Interpretation Negative Tobacco Control (Standard) Question Answer Notes Tobacco use: Nonsmoker Problems Problem Type SNOMED Code ICD Code Onset Dates Problem Status W/U Status Risk Notes Problem 58527078 Neck pain (M54.2) Active confirmed Problem 613379989 Fibromyalgia (M79.7) Active confirmed Encounters Encounter Location Date Provider Diagnosis [facility] [address] [place] [address] 12/01/2024 Inras xxAspenInras Low back pain, unspecified back pain laterality, unspecified chronicity, unspecified whether sciatica present M54.50 ; Thoracic back pain, unspecified back pain laterality, unspecified chronicity M54.6 ; Neck pain M54.2 and Fibromyalgia M79.7 Assessments Encounter Date Diagnosis (ICD Code) Assessment Notes Treatment Notes Treatment Clinical Notes Section Notes 12/01/2024 Low back pain, unspecified back pain laterality, unspecified chronicity, unspecified whether sciatica present (ICD-10 - M54.50) 1. Low back pain 2. Neck pain 3. Thoracic back pain 4. Fibromyalgia At this time, the patient like to start conservatively with treating her pain with an HEP for her neck as well as lumbar spine. We will see the patient back in 6 weeks and if she is not improved at that time, we will likely obtain MR imaging. 12/01/2024 Thoracic back pain, unspecified back pain laterality, unspecified chronicity (ICD-10 - M54.6) 1. Low back pain 2. Neck pain 3. Thoracic back pain 4. Fibromyalgia At this time, the patient like to start conservatively with treating her pain with an HEP for her neck as well as lumbar spine. We will see the patient back in 6 weeks and if she is not improved at that time, we will likely obtain MR imaging. 12/01/2024 Neck pain (ICD-10 - M54.2) 1. Low back pain 2. Neck pain 3. Thoracic back pain 4. Fibromyalgia At this time, the patient like to start conservatively with treating her pain with an HEP for her neck as well as lumbar spine. We will see the patient back in 6 weeks and if she is not improved at that time, we will likely obtain MR imaging. 12/01/2024 Fibromyalgia (ICD-10 - M79.7) 1. Low back pain 2. Neck pain 3. Thoracic back pain 4. Fibromyalgia At this time, the patient like to start conservatively with treating her pain with an HEP for her neck as well as lumbar spine. We will see the patient back in 6 weeks and if she is not improved at that time, we will likely obtain MR imaging. 12/01/2024 Other Neck: Exercises material was printed, Low Back Pain: Exercises material was printed Will see the patient back in 6 weeks 1. Low back pain 2. Neck pain 3. Thoracic back pain 4. Fibromyalgia At this time, the patient like to start conservatively with treating her pain with an HEP for her neck as well as lumbar spine. We will see the patient back in 6 weeks and if she is not improved at that time, we will likely obtain MR imaging. Plan Of Treatment Treatment Notes Assessment Notes Other Neck: Exercises material was printed, Low Back Pain: Exercises material was printed Will see the patient back in 6 weeks Next Appt Details Follow Up: FU 6 Weeks; HEP N marleny and Lumbar, Reason: Progress Notes * NOHEMI GODINEZ:1995 (29 yo F)Acc No.[id number]:12/01/2024 Patient: SANDY APARICIO Provider: Zuleika French MD :1995 A ge:29 Y S ex:Female Date:12/01/2024 Address:[address] [place] [address], [place] [address] Pcp:Noemi Jiang Subjective: * Chief Complaints: * 1 . SCOLI/THORACIC. 2. Neck pain, thoracic pain, low back pain. * HPI: G eneral Info per Patient Report: Joint or body part affected is n marleny, upper back, lower back, hip. W ork related: N o. M otor vehicle accident: N o. M [facility] N o. T hird alliance party responsibility: N o. W hat activities make your symptoms worse? s tanding, Walking, leaning forward, bending forward. T esting has been done: y es, regular x-ray of spine at [place] 11/08, CT scan of spine at [place] 11/08. W hich of the following treatments have you tried? n one. H ave you been seen by a Dentist in the last year? Y es. D o you have any dental problems? Y es, Cavities. Patient presents to the clinic today complaining of approximately 13 years of pain in the neck, low back, and mid back. Denies any upper or lower extremity radicular pain or N/T. This pain is significantly worse with standing and walking. To alleviate her condition, the patient has tried activity modification with no significant relief. The patient does have a history of fibromyalgia. Denies weakness. Denies loss of bowel or bladder control or urinary retention. Patient rates her pain a 10/10 at its worst and a 5/10 on average. * ROS: C onstitutional: Appetite Change Y es. D ifficulty Sleeping N o.?Marked Fatigue Y es. G astrointestinal: Hemorrhoids Y es. H eartburn/Acid Stomach Y es.? M usculoskeletal: Joint pain Y es. B ack Pain Y es. N marleny Pain?Yes. G enitourinary: Pelvic Pain Y es. N eurological: Headaches/Migraines Y es. P sychiatric: Nervous Exhaustion Y es. P aranoia Y es. O bsessive/Compulsive Behavior Y es. A nxiety Y es. D epression Y es. * Medical History: L iver Disease, Gastric Reflux, Rheumatoid arthritis, Ovarian Cysts, Anxiety, Depression. * Surgical History: D and C 2018, Cholecystectomy (gallbladder removal) 02/2024, Tonsillectomy/Adenoidectomy 2014, [place] teeth extraction 2014. * Family History: G randparents: diagnosed with Hypertension, Diabetes, Heart disease, Chronic mental illness, Arthritis, Alcoholism, Spinal disease. M other: diagnosed with Hypertension, Cancer. S iblings: diagnosed with Chronic mental illness, Spinal disease. F ather: diagnosed with Chronic mental illness, Alcoholism. * Social History: E xercise regularly D o you exercise? Y es, H ow many times per week? d aily,?How long do you exercise? 1 5 min. [address] is your place of residence? W here do you live? P rivate home. A ABDON-C (Standard) D id you have a drink containing alcohol in the past year? N o, P oints 0 , I nterpretation N egative. T obacco Control (Standard) T obacco use: N onsmoker. * Medications: N one * Allergies: N .K.D.A. Objective: * Vitals: P ain Scale (NRS): 3. * Examination: G eneral examination: A wake alert and oriented times 3. No acute distress. Hearing is intact to the spoken word. Respirations are unlabored. Global sagittal and coronal balance are within normal limits. Skin on the neck is healthy with no rashes, lesions or surgical scars. No excessive kyphosis or scoliosis. No palpable abnormal masses or nodules. No point tenderness, no step-off. Cervical and Lumbar range of motion is limited by pain and stiffness. Bilateral upper extremity range of motion is within normal limits with no increased pain. No obvious shoulder, elbow, or wrist pathology bilaterally Bilateral upper extremity muscle tone and strength are normal. Bilateral lower extremity muscle tone and strength are normal. Bilateral upper and lower extremity sensation to light touch is intact. Bilateral upper and lower extremity reflexes are normal and symmetric with no long tract signs. Bilateral upper and lower extremities are well perfused with no signs of DVT. X -ray Imaging Studies: X R scoliosis survey obtained at [place] reveals minimal lateral curvature of the thoracic spine with concavity to the left. This is less than 5 degrees. There is no hypermobility with sidebending. No acute chest or abnormal findings. Visualized pelvis symmetric. No vertebral abnormality identified. M RI Imaging Studies: N o new imaging. Assessment: * Assessment: 1. L ow back pain, unspecified back pain laterality, unspecified chronicity, unspecified whether sciatica present - M54.50 (Primary) 2 . T horacic back pain, unspecified back pain laterality, unspecified chronicity - M54.6 3 . N marleny pain - M54.2 & #160; 4 . F ibromyalgia - M79.7 1. Low back pain 2. Neck pain 3. Thoracic back pain 4. Fibromyalgia At this time, the patient like to start conservatively with treating her pain with an HEP for her neck as well as lumbar spine. We will see the patient back in 6 weeks and if she is not improved at that time, we will likely obtain MR imaging. Plan: * Treatment: * Follow Up: F U 6 Weeks; HEP Neck and Lumbar Forms: * Images: * Electronic signature of Supa Davidson MD on 02/22/2025 at 08:53 AM EDT Sign off status: Pending * Provider: Zuleika French MD Date: 0 12/01/2024 Generated for Nathan marques/Catrachita/nAaly on: 0 02/22/2025 08:53 AM EDT History and Physical Notes * HPI (History of Present Illness) Category Sub-Category Detail Notes Category Not es General Info per Patient Report Joint or body part affected is neck, upper back, lower back, hip Patient presents to the clinic today complaining of approximately 13 years of pain in the neck, low back, and mid back. Denies any upper or lower extremity radicular pain or N/T. This pain is significantly worse with standing and walking. To alleviate her condition, the patient has tried activity modification with no significant relief. The patient does have a history of fibromyalgia. Denies weakness. Denies loss of bowel or bladder control or urinary retention. Patient rates her pain a 10/10 at its worst and a 5/10 on average Work related: No Motor vehicle accident: No Testing has been done: yes, regular x-ra y of spine at [place] 11/08, CT scan of spine at [place] 11/08 Third alliance party responsibility: No What activities make your symptoms worse ? standing, Walking, leaning forward, bending forward Which of the following treat ments have you tried? none Have you been seen by a [facility] ist in the last year? Yes Do you have any dental problems? Yes, Ca vities MVA No Examination Category Sub-Category Detail Notes Category Not es General examination Awake alert and oriented times 3. No acute distress. Hearing is intact to the spoken word. Respirations are unlabored. Global sagittal and coronal balance are within normal limits. Skin on the neck is healthy with no rashes, lesions or surgical scars. No excessive kyphosis or scoliosis. No palpable abnormal masses or nodules. No point tenderness, no step-off. Cervical and Lumbar range of motion is limited by pain and stiffness. Bilateral upper extremity range of motion is within normal limits with no increased pain. No obvious shoulder, elbow, or wrist pathology bilaterally Bilateral upper extremity muscle tone and strength are normal. Bilateral lower extremity muscle tone and strength are normal. Bilateral upper and lower extremity sensation to light touch is intact. Bilateral upper and lower extremity reflexes are normal and symmetric with no long tract signs. Bilateral upper and lower extremities are well perfused with no signs of DVT. X-ray Imaging Studies XR sco liosis survey obtained at [place] reveals minimal lateral curvature of the thoracic spine with concavity to the left. This is less than 5 degrees. There is no hypermobility with sidebending. No acute chest or abnormal findings. Visualized pelvis symmetric. No vertebral abnormality identified. MRI Imaging Studies No shima i roosevelt
--- OUTSIDE RECORDS SUMMARY | 2025-01-12 10:00 | XMS_ITS ---
Author Organization [facility] Address [address] [place] [address] Care Team Providers Care Compressor Operator Adjuster Name Role Phone Noemi Jiang Primary Care Provider [facility] Unavailable REASON FOR VISIT Scoli/thoracic Encounters Encounter Location Date Provider Diagnosis [facility] [address] [place] [address] 01/12/2025 [facility] Stuart Plan Of Treatment No Information Progress Notes * SANDY GODINEZDOB:1995 (29 yo F)Acc No.[id number]:01/12/2025 Patient: SANDY APARICIO Provider: Zuleika French MD :1995 A ge:29 Y S ex:Female Date:01/12/2025 Address:[address] [place], [place] [id number] Pcp:Nomei Jiang Subjective: * Chief Complaints: * 1 . Scoli/thoracic. * Medical History: Objective: * Vitals: Assessment: Plan: * Treatment: Forms: * Images: * Electronic signature of Supa Davidson MD on 02/22/2025 at 08:53 AM EDT Sign off status: Pending * Provider: Zuleika French MD Date: 0 01/12/2025 Generated for Nathan marques/Catrachita/eTransmitting on: 0 02/22/2025 08:53 AM EDT
--- OUTSIDE RECORDS SUMMARY | 2025-02-22 05:00 | XMS_ITS ---
Author Organization [facility] [place] Address [address] [place] [address] Care Team Providers Care Security System Engineer Name Role Phone Noemi Jiang Primary Care Provider [phone] Allergies No Known Allergies REASON FOR VISIT Fatigue, Easily Bruising Medications Medication SIG (Take, Route, Frequency, Duration) Notes Start Date End Date Status Vitamin D3 50 MCG (1999) 1 capsule Orally Once a day for 30 days 08/14/2024 Active Social History Tobacco Use: Social History Observation Description Date Details (start date - stop date) Never Smoker NA - NA Tobacco Use/Smoking Question Answer Notes Patient is a nonsmoker AUDIT-C (Standard) Question Answer Notes Did you have a drink containing alcohol in the p ast year? No Points 0 Interpretation Negative Vital Signs Blood pressure systolic 112 mm Hg 02/23/20 25 Blood pressure diastolic 72 mm Hg 025 Height 63 in 02/22/2025 Weight 181.0 lbs 02/22/2025 BMI 32.06 kg/m2 02/22/2025 Encounters Encounter Location Date Provider Diagnosis [facility] [address] [place] [address] 02/22/2025 Noemi Jiang Fatigue R53.83 and Vitamin D deficiency E55.9 Assessments Encounter Date Diagnosis (ICD Code) Assessment Notes Treatment Notes Treatment Clinical Notes Section Notes 02/22/2025 Fatigue (ICD-10 - R53.83) 02/22/2025 Vitamin D deficiency (ICD-10 - E55.9) Plan Of Treatment Medication Medication Name Sig Start Date Stop Date Notes Vitamin D3 50 MCG (1999) 1 capsule Or ally Once a day for 30 days 08/14/2024 Pending Test Test Name Order Date IRON, TOTAL 02/22/2025 VITAMIN D, 25 LEVEL (TOTAL) 02/22/2025 PT and PTT 02/22/2025 THYROID PANEL (T4/TSH/FREE T3) CMP (COMP MET REESE) w/eGFR CKD-EPI 2024 CBC WITH DIFF 02/22/2025 Next Appt Details Follow Up: prn, Reason: Progress Notes * Domenic GODINEZDOB:1995 (29 yo F)Acc No.[id number]:02/22/2025 UNLOCKED PROGRESS NOTE Progress Note Patient: Domenic APARICIO Provider: Grecia Jiang ([facility]), [employer] :1995 A ge:29 Y S ex:Female Date:02/22/2025 Address:[address] [place] [address], [id number] Check In:08:52 AM ESTCheck O ut:09:21 AM EST Subjective: * Chief Complaints: * 1 . Fatigue, Easily Bruising. * HPI: G eneral: easy bruising started about month ago fatigue continues rheum dx fibromyalgia cymbalta in past, didnt help . * ROS: G eneral/Constitutional: Fatigue a dmits and easy bruising. F ever d enies.?Headache d enies. W eight loss d enies. O phthalmologic: Discharge d enies. E ye Pain d enies. I tching and redness d enies. E NT: Nasal discharge d enies. N maria guadalupe congestion d enies.?Sore throat d enies. C ardiovascular: Chest tightness/ heavy pressure d enies. R apid heart rate d enies. S welling of extremities d enies. C hest pain d enies. ? R espiratory: Productive cough d enies. C hest pain d enies. C ough d enies. S hortness of breath d enies. W heezing d enies. ? G astrointestinal: Abdominal pain d enies. C onstipation d enies. D ecreased appetite d enies. D iarrhea d enies. N ausea d enies. V omiting?denies. G enitourinary: Urinary incontinence d enies. P ainful urination d enies. M usculoskeletal: Back pain d enies. N marleny pain d enies. M uscle aches d enies. S kin: Rash d enies. S kin lesion(s) d enies. ? * Medical History: A nemia, Fatigue, Anxiety and depression, Fibromyalgia. * Surgical History: T onsillectomy , D&C , [place] teeth , Gallbladder 03/10/24. * Hospitalization/Major Diagno stic Procedure: D enies Past Hospitalization. * Family History: F ather: alive, asthma, depression, bipolar. M other: alive, lymphoma, diagnosed with Other malignant neoplasm of unspecified site. B rother(s): alive, depression, bipolar. S on(s): alive. D aughter(s): alive. P aternaamadou Grandmother: alcoholism, depression, bipolar, diagnosed with Unspecified essential hypertension, Unspecified heart disease. M aterna Grandfather: hyperlipidemia, diagnosed with Unspecified essential hypertension. M atestanleyl Grandmother: diagnosed with Unspecified essential hypertension. 4 brother(s) . 1 son(s) , 1 daughter(s) . . * Social History: T obacco Use: T obacco Use/Smoking P atient is a n onsmoker D rug/Alcohol: A ABDON-C (Standard) D id you have a drink containing alcohol in the past year? N o P oints 0 I nterpretation N egative * Medications: D iscontinued Hyoscyamine Sulfate 0.125 MG Tablet Sublingual 1-2 tabs SL SL every 4 hrs PRN abd pain , Discontinued Ondansetron 4 MG Tablet Disintegrating 1 tablet on the tongue and allow to dissolve Orally qid , Discontinued Triamcinolone Acetonide 0.1 % Paste 1 application do not rinse afterwards and avoid eating or drinking for 30 minutes Mouth/Throat Twice a day , Discontinued Vitamin D3 50 MCG (1999) Capsule 1 capsule Orally Once a day , Medication List reviewed and reconciled with the patient * Allergies: N .K.D.A. Objective: * Vitals: W t:181.0lbs, Ht: 63 in, BP:112/72mm Hg, BMI:32.06Index, Ht-cm: 160.02 cm, Wt-k.1 kg. * Examination: G eneral Examinations: GENERAL APPEARANCE: a lert and oriented, i n no acute distress. EYES: c onjunctiva normal, sclera non-icteric. NOSE: n ormal external appearance. LUNGS: c lear to auscultation bilaterally. CARDIO: r egular rate and rhythm, S1, S2 normal. ABDOMEN: s oft, nontender. MUSCULOSKELETAL: G ait and station normal. SKIN: w arm and dry. Assessment: * Assessment: 1. F atigue - R53.83 (Primary) 2 . V itamin D deficiency - E55.9 Plan: * Treatment: 2. V itamin D deficiency Refill Vitamin D3 Capsule, 50 MCG (1999 UT), 1 capsule, Orally, Once a day, 30 days, 30, Refills 11. * Preventive Medicine: Screenings/Counseling: B ME ACTION PLAN Above Normal BMI Follow-up D ietary management education, guidance, and counseling * Follow Up: p rn * * Electronic signature of Ghada Gonsalez , PHAM, ATHLETIC INSTRUCTOR.[employer].[id number] on 02/22/2025 at 01:07 PM EDT Sign off status: Pending Visit Status: Elias ERWIN (Check Out) * Provider: Grecia Jiang ([facility]), [employer] Date: 02/22/2025 Generated for Printi ng/Fakaryng/eTransmitting on: 02/22/2025 01:07 PM EDT History and Physical Notes * HPI (History of Present Illness) Category Sub-Category Detail Notes Category Not es General easy bruising started about month ago fatigue continues rheum dx fibromyalgia cymbalta in past, didnt help Examination Category Sub-Category Detail Notes Category Not es General Examinations GENERAL APPEARANCE: alert a nd oriented, in no acute distress EYES: conjunctiva normal, sclera non-icteric EARS: NOSE: normal external appe arance THROAT: CARDIO: regular rate and rhy thm, S1, S2 normal LUNGS: clear to auscultatio n bilaterally ABDOMEN: soft, nontender SKIN: warm and dry BACK: MUSCULOSKELETAL: Gait and station nor mal LYMPH NODES:
--- OUTSIDE RECORDS SUMMARY | 2025-02-22 13:07 | XMS_ITS | Encounter Summary ---
Author Organization [facility] Address [address] [place] [place] [address] Care Team Providers Care Grades 1 Thru 6 Home Teacher Name Role Phone Raudel Osborne MD Primary Care Provider [phone] Jose Miguel Campuzano DO Unavailable Encounter Details Date Type Department Care Team (Late st Contact Info) Description 11/18/2023 Clinisync Result Encounter [facility] External Department Unsolicited Jose Miguel Campuzano, DO [address] [place] [id number] Social History Tobacco Use Types Packs/Day Years [...] PM EDT Narrative 11/18/2023 8:49 [place] [address] Ultrasound Report Signed Patient: DOMENIC GODINEZ MR#: [id number] : 1995 Acct:[id number] Age/Sex: 28 / F ADM Date: Loc: [facility] 254-[address]: Jose Miguel Campuznao D.O. Ordering Physician: Jose Miguel Campuzano D.O. Date of Service: 11/18/23 Procedure(s): US right upper quadrant Accession Number(s): [id number] cc: DUARTE VALDERRAMA ; Jose Miguel Campuzano D.O. [place] [id number] Patient Name: DOMENIC GODINEZ MRN: [id number] date: 1995 Sex: F Assigned Patient Location: [facility] Current Patient Location: Accession/Order Number: [id number] Exam Date: 11/18/2023 17:30 Report Date: 11/18/2023 [...] close clinical follow-up. Electronically authenticated by: JEANINE SADNOVAL Date: 11/18/2023 20:46 Dictated By: Jeanine Sandoval M.D. Signed By: 11/18/232048 DD/ 45 TD/TT: Ammonium Nitrate Neutralizer: Procedure Note Radiology, Radiologist, MD - 11/18/2023 [place] [address] Ultrasound Report Signed Patient: DOMENIC GODINEZ JMR#: [id number] : 1995Acct:[id number] Age/Sex: 28 FADM Date: Loc: [facility] 254-[address]: Jose Miguel Campuzano D.O. Ordering Physician: Jose Miguel Campuzano D.O. Date of Service: 11/18/23 Procedure(s): US right upper quadrant Accession Number(s): [id number] cc: DUARTE VALDERRAMA ; Jose Miguel Campuznao D.O. The [place] [address] Patient Name: DOMENIC GODINEZ MRN: [id number] date: 1995 Sex: F Assigned Patient Location: [facility] Current Patient Location: Accession/Order Number: [id number] Exam Date: 11/18/2023 17:30 Report Date: 11/18/2023 [...] Sandoval M.D. Signed By:11/18/232048 DD/ 45 TD/TT: Ammonium Nitrate Neutralizer: Jose Miguel Campuzano DO [facility] Final Result documented in this encounter Visit Diagnoses Not on filedocumented in this encounter Care Teams Grades 1 Thru 6 Home Teacher Relationship Specialty Start Date End Date Raudel Osborne MD [address] [facility] [place] [address] PCP - General Family Medicine 03/02/24 Jose Miguel Campuzano DO [address] [place] [address] [address] [place] [place] [address] PCP - [facility] 03/17/24 documented as of this encounter
--- OUTSIDE RECORDS SUMMARY | 2025-02-22 13:07 | XMS_ITS | Encounter Summary ---
Author Organization [facility] Address [address] [place] [place] [address] Care Team Providers Care Blending Kettle Tender Name Role Phone Raudel Osborne MD Primary Care Provider [phone] Jose Miguel Campuzano DO Unavailable Encounter Details Date Type Department Care Team (Late st Contact Info) Description 12/05/2023 Clinisync Result Encounter [facility] External Department Unsolicited Jose Miguel Campuzano, DO [address] S[place] [id number] Social History Tobacco Use Types Packs/Day Years [...] PM EDT Narrative 12/05/2023 1:43 [place] [address] Ultrasound Report Signed Patient: DOMENIC GODINEZ MR#: [id number] : 1995 Acct:[id number] Age/Sex: 28 / F ADM Date: 12/05/23 Loc: [facility] Attending Dr: Jose Miguel Campuzano D.O. Ordering Physician: Jose Miguel Campuzano D.O. Date of Service: 12/05/23 Procedure(s): US OB growth Accession Number(s): [id number] cc: DUARTE VALDERRAMA ; Jose Miguel Campuzano D.O. [place] [address] Patient Name: DOMENIC GODINEZ MRN: [id number] date: 1995 Sex: F Assigned Patient Location: [facility] Current Patient Location: [facility] Accession/Order Number: [id number] Exam Date: 12/05/2023 08:57 Report Date: 12/05/2023 [...] growth detailed above. Electronically authenticated by: JOSUE Lee: 12/05/2023 13:40 Dictated By: Josue Kebede M.D. Signed By: 12/05/23 1343 DD/ 1340 TD/TT: Flaker Operator: Procedure Note Radiology, Radiologist, - 12/05/2023 [place] [address] Ultrasound Report Signed Patient: DOMENIC GODINEZ R#: [id number] : 1995Acct:[id number] Age/Sex: 28 / FADM Date: 12/05/23 Loc: [facility] Attending Dr: Jose Miguel Campuzano D.O. Ordering Physician: Jose Miguel Campuzano D.O. Date of Service: 12/05/23 Procedure(s): US OB growth Accession Number(s): [id number] cc: DUARTE VALDERRAMA ; Jose Miguel Campuzano D.O. The [place] [id number] Patient Name: DOMENIC GODINEZ MRN: [id number] date: 1995 Sex: F Assigned Patient Location: [facility] Current Patient Location: [facility] Accession/Order Number: [id number] Exam Date: 12/05/2023 08:57 Report Date: 12/05/2023 [...] M.D. Signed By:12/05/23 1343 DD/ 1340 TD/TT: Flaker Operator: us Jose Miguel Campuzano DO [facility] Final Result documented in this encounter Visit Diagnoses Not on filedocumented in this encounter Care Teams Blending Kettle Tender Relationship Specialty Start Date End Date Raudel Osborne MD [address] [place] [address] PCP - General Family Medicine 03/02/24 Jose Miguel Campuzano DO [address] [place] [address] [place] [address] [address] - [facility] 03/17/24 documented as of this encounter
--- OUTSIDE RECORDS SUMMARY | 2025-02-22 13:07 | XMS_ITS | Encounter Summary ---
Author Organization [facility] Address [address] [place] [address] Care Team Providers Care Network Support Administrator Name Role Phone Raudel Osborne MD Primary Care Provider [phone] Jose Miguel Campuzano DO Unavailable Encounter Details Date Type Department Care Team (Late st Contact Info) Description 12/30/2023 Clinisync Result Encounter [facility] External Department Unsolicited Jose Miguel Campuzano, DO [address] [place] [id number] Social History Tobacco Use Types Packs/Day Years [...] PM EDT Narrative 12/30/2023 12:43 [place] [address] Ultrasound Report Signed Patient: DOMENIC GODINEZ MR#: [id number] : 1995 Acct:[id number] Age/Sex: 28 / F ADM Date: 12/30/23 Loc: [facility] 255-[address]: Jose Miguel Campuzano D.O. Ordering Physician: Jose Miguel Campuzano D.O. Date of Service: 12/30/23 Procedure(s): US OB growth Accession Number(s): [id number] cc: DUARTE VALDERRAMA ; Jose Miguel Campuzano D.O. [place] [phone] Patient Name: DOMENIC GODINEZ MRN: [id number] date: 1995 Sex: F Assigned Patient Location: [facility] Current Patient Location: [facility] Accession/Order Number: [id number] Exam Date: 12/30/2023 10:52 Report Date: 12/30/2023 [...] Signed By: 12/30/23 1243 DD/ 1240 TD/TT: Angular Js Developer: Procedure Note Radiology, Radiologist, MD - 12/30/2023 [place] [address] Ultrasound Report Signed Patient: DOMENIC GODINEZ R#: [id number] : 1995Acct:[id number] Age/Sex: 28 / FADM Date: 12/30/23 Loc: [facility] 255-[address]: Jose Miguel Campuzano D.O. Ordering Physician: Jose Miguel Campuzano D.O. Date of Service: 12/30/23 Procedure(s): US OB growth Accession Number(s): [id number] cc: DUARTE VALDERRAMA ; Jose Miguel Campuzano D.O. The [place] [address] Patient Name: DOMENIC GODINEZ MRN: [facility]:[id number] date: 1995 Sex: F Assigned Patient Location: [facility] Current Patient Location: [facility] Accession/Order Number: [id number] Exam Date: 12/30/2023 10:52 Report Date: 12/30/2023 [...] M.D. Signed By:12/30/23 1243 DD/ 1240 TD/TT: Angular Js Developer: us Jose Miguel Campuzano DO [facility] Final Result documented in this encounter Visit Diagnoses Not on filedocumented in this encounter Care Teams Network Support Administrator Relationship Specialty Start Date End Date Raudel Osborne MD [address] [place] [address] PCP - General Family Medicine 03/02/24 Jose Miguel Campuzano DO [address] [place] [address] [place] [address] PCP - [facility] 03/17/24 documented as of this encounter
--- OUTSIDE RECORDS SUMMARY | 2025-02-22 13:07 | XMS_ITS | Encounter Summary ---
Author Organization [facility] Address [address] [place] [address] Care Team Providers Care Senior Inspector Name Role Phone Raudel Osborne MD Primary Care Provider [phone] Edward Campuzano DO Unavailable Encounter Details Date Type Department Care Team (Late st Contact Info) Description 11/28/2023 Abstract [facility] [address] [place] [address] Edward Campuzano DO [address] [facility] [address] S[place]umar [place], [facility] Social History Tobacco Use Types Packs/Day [...] on filedocumented in this encounter Care Teams Senior Inspector Relationship Specialty Start Date End Date Raudel Osborne MD [address] [place] [address] PCP - General Family Medicine 03/02/24 Edward Campuzano DO [address] [place] [address] [place] [address] PCP - [facility] 03/17/24 documented as of this encounter
--- OUTSIDE RECORDS SUMMARY | 2025-02-22 13:07 | XMS_ITS | Encounter Summary ---
Author Organization [facility] Address [address] [place] [place] [address] Care Team Providers Care Boilers Inspector Name Role Phone Raudel Osborne MD Primary Care Provider [phone] Jose Miguel Campuzano DO Unavailable Encounter Details Date Type Department Care Team (Late st Contact Info) Description 10/15/2023 Clinisync Result Encounter [facility] External Department Unsolicited Jose Miguel Campuzano, DO [address] [place] [phone] Social History Tobacco Use Types Packs/Day Years [...] AM EDT Narrative 10/15/2023 9:59 [place] [address] Ultrasound Report Signed Patient: DOMENIC GODINEZ MR#: [id number] : 1995 Acct:[id number] Age/Sex: 28 / F ADM Date: 10/15/23 Loc: [facility] Attending Dr: Jose Miguel Campuzano D.O. Ordering Physician: Jose Miguel Campuzano D.O. Date of Service: 10/15/23 Procedure(s): US OB cervical length Accession Number(s): [id number] cc: DUARTE VALDERRAMA ; Jose Miguel Campuzano D.O. [place] [id number] Patient Name: DOMENIC GODINEZ MRN: [id number] date: 1995 Sex: F Assigned Patient [facility] Current Patient Location: [facility] Accession/Order Number: [id number] Exam Date: 10/15/2023 08:32 Report Date: 10/15/2023 [...] Dictated By: Kirk Oates M.D. Signed By: 10/15/2359 DD/ 5 TD/TT: Buttermilk Drier Operator: Procedure Note Radiology, Radiologist, MD - 10/15/2023 [place] [address] Ultrasound Report Signed Patient: DOMENIC GODINEZ R#: [id number] : 1995Acct:[id number] Age/Sex: FADM Date: 10/15/23 Loc: [facility] Attending Dr: Jose Miguel Campuzano D.O. Ordering Physician: Jose Miguel Campuzano D.O. Date of Service: 10/15/23 Procedure(s): US OB cervical length Accession Number(s): [id number] cc: DUARTE VALDERRAMA ; Jose Miguel Campuzano D.O. The [place] [address] Patient Name: DOMENIC GODINEZ MRN: [id number] date: 1995 Sex: F Assigned [facility] Current [facility] Accession/Order Number: [id number] Exam Date: 10/15/2023 08:32 Report Date: 10/15/2023 [...] Examinations, March 17, 2007. Electronically authenticated by: KIKR OATES Date: 10/15/2023 09:56 Dictated By: Kirk Oates M.D. Signed By:10/15/2359 DD/ TD/TT: Buttermilk Drier Operator: us Jose Miguel Campuzano DO [facility] Final Result documented in this encounter Visit Diagnoses Not on filedocumented in this encounter Care Teams Boilers Inspector Relationship Specialty Start Date End Date Raudel Osborne MD [address] [place] [address] PCP - General Family Medicine 03/02/24 Jose Miguel Campuzano DO [address] [place] [address] Dr [address] [facility] [place] [address] PCP - [facility] 03/17/24 documented as of this encounter
--- OUTSIDE RECORDS SUMMARY | 2025-02-22 13:07 | XMS_ITS | Encounter Summary ---
Author Organization [facility] Address [address] [place] [address] Care Team Providers Care Aircraft Seat Upholsterer Name Role Phone Raudel Osborne MD Primary Care Provider [phone] Edward Campuzano DO Unavailable Encounter Details Date Type Department Care Team (Late st Contact Info) Description 11/19/2023 Abstract [facility] [address] [place] [address] Rosa Go LPN [address] [place] [phone] Social History Tobacco Use Types Packs/Day Years [...] on filedocumented in this encounter Care Teams Aircraft Seat Upholsterer Relationship Specialty Start Date End Date Raudel Osborne MD [address] [place] [address] PCP - General Family Medicine 03/02/24 Edward Campuzano DO [address] [place] [address] [place] [address] PCP - [facility] 03/17/24 documented as of this encounter
--- OUTSIDE RECORDS SUMMARY | 2025-02-22 13:07 | XMS_ITS | Encounter Summary ---
Author Organization [facility] Address [address] [place] [address] Care Team Providers Care Spinning Mule Operator Name Role Phone Raudel Osborne MD Primary Care Provider [phone] Edward Campuzano DO Unavailable Encounter Details Date Type Department Care Team (Late st Contact Info) Description 11/07/2023 External Result Encounter [facility] [address] [facility] [place] [address] Edward Campuzano DO [address] [facility] [address] [place], [facility]11 Social History Tobacco Use Types [...] documented in this encounter Plan of Treatment Not on [...] Final 11/07/2023 16:35) PATIENT INFO: ID #: [id number] : [birth year] (28 yrs)(F) Name: DOMENIC [place] Visit Date: 11/07/2023 13:27 PERFORMED BY: Attending: Mitul Stanford MD Performed By: Shana Pagan RDMS Referred By: Edward Campuzano DO Ref. Address: [address] [place] [address] [place] [address] Location: [facility] SERVICE(S) PROVIDED: Comprehensive Anatomic Survey 07830 INDICATIONS: Screening for anatomic survey Z36.89 Suspected [...] Appears Normal Interventr. Septum: Appears Normal Cardiac [place]: Appears normal Diaphragm: Appears normal 3 Vessel [...] structural abnormality identified RECOMMENDATIONS: 1. Please see [facility] consultation documentation from today's encounter. 2. Subsequent follow up or other follow up as clinically determined by primary OB provider unless otherwise specified by [facility]. 3. Results forwarded to ordering provider so they can follow up with the patient as necessary. Procedure Note Zohreh Pederson MD - 11/07/2023 THIS EXAM WAS PERFORMED AT [facility] OBSTETRICS REPORT (Signed Final 11/07/2023 16:35) PATIENT INFO: ID #: [id number] : [birth year] (28 yrs)(F) Name: DOMENIC GODINEZ Visit Date: 11/07/2023 13:27 PERFORMED BY: Attending: Mitul Stanford MD Performed By: Shana Pagan RDMS Referred By: Edward Campuzano DO Ref. Address: [address] [place] [address] [place] [address] Location: [facility] SERVICE(S) PROVIDED: Comprehensive Anatomic Survey 79748 INDICATIONS: Screening for anatomic survey Z36.89 Suspected [...] Appears Normal Interventr. Septum: Appears Normal Cardiac [place]: Appears normal Diaphragm: Appears normal 3 Vessel [...] structural abnormality identified RECOMMENDATIONS: 1. Please see [facility] consultation documentation from today's encounter. 2. Subsequent [...] on filedocumented in this encounter Care Teams Spinning Mule Operator Relationship Specialty Start Date End Date Raudel Osborne MD [address] [place] [address] PCP - General Family Medicine 03/02/24 Edward Campuzano DO [address] [place] [address] [place] [address] PCP - [facility] 03/17/24 documented as of this encounter
--- OUTSIDE RECORDS SUMMARY | 2025-02-22 13:07 | XMS_ITS | Patient Health Record ---
Author Organization [facility] [place] Address [address] [place] [address] Care Team Providers Care Indian Nanny Name Role Phone Noemi Jiang Primary Care Provider [phone] JohngeniaJose Alberto [phone] Allergies No Known Allergies Results Component Value Reference Range Notes US right upper quadrant Reviewed date:10/08/2024 01:28:50 PM Interpretation: Performing Lab: Notes/Report: Source Facility: [place] [address] Ultrasound Report Signed Patient: SANDY GODINEZ MR#: [id number] : 1995 Acct:[id number] Age/Sex: 29 / F ADM Date: 10/08/24 Loc: US Attending Dr: NOEMI JIANG Ordering Physician: NOEMI JIANG Date of Service: 10/08/24 Procedure(s): US right upper quadrant Accession Number(s): [id number] cc: NOEMI JIANG [place] [id number] Patient Name: SANDY GODINEZ MRN: [id number] date: 1995 Sex: F Assigned Patient Location: US Current Patient Location: US Accession/Order Number: [id number] Exam Date: 10/08/2024 13:05 Report Date: 10/08/2024 13:07 At the request of: NOEMI JIANG Procedure: US right upper quadrant LIMITED ABDOMINAL [...] Frost Jr., D.O.10/08/2024 1:07 PM Dictation Location: [place] [address] Electronically authenticated by: [id number] Y Date: 10/08/2024 13:07 Dictated By: Pk Frost M.D. Signed By: 10/08/24 1309 DD/ 1307 TD/TT: Pool Table Operator: [place] [address] Ultrasound Report Signed Patient: SHERON GODINEZ MR#: [id number] : 1995 Acct:[id number] Age/Sex: 29 / F ADM Date: 10/08/24 Loc: Attending Dr: NOEMI JIANG Ordering Physician: NOEMI JIANG Date of Service: 10/08/24 Procedure(s): US rig ht upper quadrant Accession Number(s): [id number] cc: NOEMI JIANG [place] [id number] Patient Name: SANDY GODINEZ MRN: [id number] date: 1995 Sex: F Assigned Patient Location: US Current Patient Location: US Accession/Order Numb er: [id number] Exam Date: 10/08/2024 13:05 Report Date: 10/08/2024 13:07 At the request of: NOEMI JIANG Procedure: US right upper quadrant LIMITED ABDOMINAL [...] Frost Jr., D.O.10/08/2024 1:07 PM Dictation Location: [place] [address] Electronically authenticated by: [id number] Y Date: 10/08/2024 13:07 Dictated By: Pk Frost M.D. Signed By: 10/08/24 1309 DD/ 1307 TD/TT: Pool Table Operator: LIPASE Reviewed date:03/02/2024 10:30:32 AM Interpretation: Performing Lab: Notes/Report: [facility] , Lipase 40.0 16.0-77.0 U/L Performing Lab: see note ML - [facility] LB HCG Qualitative* Reviewed date:03/10/2024 03:56:10 PM Interpretation: Performing Lab: Notes/Report: [facility] , HCG Qualitative NEGATIVE NEGATIVE Performing Lab: see note - [facility] LB CBC AUTO DIFF Reviewed date:08/12/2024 09:30:30 AM Interpretation: Performing Lab: Notes/Report: [facility] , White Blood Count 7.3 4.0-11.0 [...] Performing Lab: see note ML - [facility] FREE T3 Reviewed date:08/13/2024 02:35:55 PM Interpretation: Performing Lab: Notes/Report: [facility] , Free T3 2.58 2.18-3.98 pg/mL Performing Lab: see note ML - [facility] LB IRON Reviewed date:08/13/2024 02:35:55 PM Interpretation: Performing Lab: Notes/Report: [facility] , Iron 61.0 50.0-170.0 ug/dL Performing Lab: see note ML - [facility] LB LIPID PROFILE Reviewed date:08/13/2024 02:35:55 PM Interpretation: Performing Lab: Notes/Report: [facility] , Triglycerides 73 <=150 mg/dL Cholesterol [...] RISK Performing Lab: see note ML - [facility] LB PROF 14(COMP METB) Reviewed date:08/13/2024 02:35:55 PM Interpretation: Performing Lab: Notes/Report: [facility] , Sodium 140 136-145 mmol/L Potassium [...] 1.1 Performing Lab: see note ML - [facility] LB T4 Reviewed date:08/13/2024 02:35:55 PM Interpretation: Performing Lab: Notes/Report: [facility] , T4 Thyroxine 6.60 4.80-13.90 ug/dL Performing Lab: see note ML - [facility] LB TSH Reviewed date:08/13/2024 02:35:55 PM Interpretation: Performing Lab: Notes/Report: [facility] , Thyroid Stimulating Hormone 1.122 0.358-3.740 uIU/mL Performing Lab: see note ML - [facility] LB VITAMIN D 25 [place] Reviewed date:08/13/2024 02:35:55 PM Interpretation: Performing Lab: Notes/Report: [facility] , Vitamin D 24.3 <20 ng/mL Vit D deficient 20-<30 ng/mL Vit D insufficient 30-100 ng/mL Vit D sufficient >100 ng/mL Potential Toxicity Performing Lab: see note ML - [facility] LB CT ABDOMEN WO or W CON Reviewed date:11/02/2024 02:13:06 PM Interpretation: Performing Lab: Notes/Report: Source Facility: [place] [address] CT Scan Report Signed Patient: SANDY GODINEZ MR#: [id number] : 1995 Acct:[id number] Age/Sex: 29 / F ADM Date: 10/27/24 Loc: CT Attending Dr: NOEMI JIANG Ordering Physician: NOEMI JIANG Date of Service: 10/27/24 Procedure(s): CT abdomen wo/w con Accession Number(s): [id number] cc: NOEMI JIANG [place] [address] Patient Name: SANDY GODINEZ MRN: [id number] date: 1995 Sex: F Assigned Patient Location: CT Current Patient Location: CT Accession/Order Number: [id number] Exam Date: 10/27/2024 10:32 Report Date: 10/27/2024 10:48 At the request of: NOEMI JIANG Procedure: CT abdomen wo/w con CT ABDOMEN [...] Trujillo M.D. 10/27/2024 10:48 AM Dictation Location: [place] [address] Electronically authenticated by: [id number] Y Date: 10/27/2024 10:48 Dictated By: Piedad Trujillo M.D. Signed By: 10/27/24 1050 DD/ 1048 TD/TT: Pool Table Operator: [place] [address] CT Scan Report Signed Patient: SHERON GODINEZ MR#: [id number] : 1995 Acct:[id number] Age/Sex: 29 / F ADM Date: 10/27/24 Loc: CT Attending Dr: NOEMI JIANG Ordering Physician: NOEMI JIANG Date of Service: 10/27/24 Procedure(s): CT abdomen wo/w con Accession Number(s): [id number] cc: NOEMI JIANG [place] [address] Patient Name: SANDY GODINEZ MRN: [id number] date: 1995 Sex: F Assigned Patient Location: CT Current Patient Location: CT Accession/Order Numb er: [id number] Exam Date: 10/27/2024 10:32 Report Date: 10/27/2024 10:48 At the request of: NOEMI JIANG Procedure: CT abdome n wo/w con CT [...] Trujillo M.D. 10/27/2024 10:48 AM Dictation Location: [place] [address] Electronically authenticated by: [id number] Y Date: 10/27/2024 10:48 Dictated By: Piedad Trujillo M.D. Signed By: 10/27/24 1050 DD/ 1048 TD/TT: Pool Table Operator: MILADYS scoliosis survey Reviewed date:11/06/2024 03:06:03 PM Interpretation: Performing Lab: Notes/Report: Source Facility: [facility] [place] [address] [place] [address] XRay Report Signed Patient: SANDY GODINEZ MR#: [id number] : 1995 Acct:[id number] Age/Sex: 29 / F ADM Date: 11/05/24 Loc: RAD Attending Dr: NOEMI JIANG Ordering Physician: NOEMI JIANG Date of Service: 11/05/24 Procedure(s): XR scoliosis survey Accession Number(s): [id number] cc: NOEMI JIANG [place] [address] Patient Name: SANDY GODINEZ MRN: [id number] date: 1995 Sex: F Assigned Patient Location: RAD Current Patient Location: [facility] Accession/Order Number: [id number] Exam Date: 11/05/2024 14:59 Report Date: 11/05/2024 15:02 At the request of: NOEMI JIANG Procedure: XR scoliosis survey Plain films scoliosis [...] Loyd M.D. 11/05/2024 3:02 PM Dictation Location: [place] [address] Electronically authenticated by: [id number] Y Date: 11/05/2024 15:02 Dictated By: Vinicio Loyd D.O. Signed By: 11/05/24 1505 DD/ 1502 TD/TT: Pool Table Operator: [place] [address] XRay Report Signed Patient: SHERON GODINEZ MR#: [id number] : 1995 Acct:[id number] Age/Sex: 29 / F ADM Date: 11/05/24 Loc: RAD Attending Dr: NEOMI JIANG Ordering Physician: NOEMI JIANG Date of Service: 11/05/24 Procedure(s): XR scoliosis survey Accession Number(s): [id number] cc: NOEMI JIANG [place] [id number] Patient Name: SANDY GODINEZ MRN: [id number] date: 1995 Sex: F Assigned Patient Location: RAD Current Patient Location: RAD Accession/Order Numb er: [id number] Exam Date: 11/05/2024 14:59 Report Date: 11/05/2024 15:02 At the request of: NOEMI JIANG Procedure: XR scolio sis survey Plain films [...] Loyd M.D. 11/05/2024 3:02 PM Dictation [facility] Electron[facility] authenticated by: [id number] Y Date: 11/05/2024 15:02 Dictated By: Vinicio Loyd D.O. Signed By: 11/05/24 1505 DD/ 1502 TD/TT: Pool Table Operator: CBC AUTO DIFF Reviewed date:12/25/2024 11:26:03 AM Interpretation: Performing Lab: Notes/Report: [facility] , White Blood Count 7.2 4.0-11.0 10 3/uL Red Blood Count 4.36 4.20-5.40 10 6/uL Hemoglobin 12.7 12.0-16.0 g/dL Hematocrit 39.1 36.0-48.0 % Mean Corpuscular Volume 89.7 81.0-99.0 fL Mean Corpuscular Hemoglobin 29.1 26.7-34.0 pg Mean Corpuscular HGB Conc 32.5 29.9-35.2 g/dL Red Cell Distribution Width 13.6 11.0-15.0 % Platelet Count 283 150-450 10 3/uL Mean Platelet Volume 9.4 9.5-13.5 fL Neutrophils Percent Auto 51.4 43.0-75.0 % Lymphocytes Percent Auto 31.8 20.5-60.0 % Monocytes Percent Auto 10.1 1.7-12.0 % Eosinophils Percent Auto 5.5 0.9-7.0 % Basophils Percent Auto 0.8 0.2-2.0 % Immature Granulocytes Pct Auto 0.4 0.0-0.5 % Neutrophils Absolute Auto 3.7 1.4-6.5 10 3/uL Lymphocytes Absolute Auto 2.3 1.2-3.8 10 3/uL Monocytes Absolute Auto 0.7 0.3-0.8 10 3/uL Eosinophils Absolute Auto 0.4 0.0-0.7 10 3/uL Basophils Absolute Auto 0.1 0.0-0.1 10 3/uL Immature Granulocytes Abs Auto 0.03 0.00-0.03 10 3/uL Performing Lab: see note ML - [facility] LB PREG QUANT HCG Reviewed date:12/25/2024 11:26:03 AM Interpretation: Performing Lab: Notes/Report: [facility] , HCG Quantitative <1 5-50 0.2-1 WEEK 50-500 1-2 WEEKS 100-5,000 2-3 WEEKS 500-10,000 3-4 WEEKS 1,000-50,000 4-5 WEEKS 10,000-100,000 5-6 WEEKS 15,000-200,000 6-8 WEEKS 10,000-100,000 2-3 MONTHS Performing Lab: see note ML - [facility] LB PROF 14(COMP METB) Reviewed date:10/06/2024 12:48:47 PM Interpretation: Performing Lab: Notes/Report: [facility] , Sodium 142 136-145 mmol/L Potassium [...] Performing Lab: see note ML - [facility] US pelvis transvaginal Reviewed date:09/21/2024 03:43:13 PM Interpretation: Performing Lab: Notes/Report: Source Facility: [place] [address] Ultrasound Report Signed Patient: SANDY GODINEZ MR#: [id number] : 1995 Acct:[id number] Age/Sex: 29 / F ADM Date: 09/15/24 Loc: US Attending Dr: Jose Miguel Campuzano D.O. Ordering Physician: Jose Miguel Campuzano D.O. Date of Service: 09/15/24 Procedure(s): US pelvis transvaginal Accession Number(s): [id number] cc: NOEMI JIANG ; Jose Miguel Campuzano D.O. [place] [address] Patient Name: SANDY GODINEZ MRN: [id number] date: 1995 Sex: F Assigned Patient Location: Current Patient Location: US Accession/Order Number: [id number] Exam Date: 09/15/2024 13:45 Report Date: 09/15/2024 [...] Vinicio Loyd M.D.09/15/2024 1:47 PM Dictation Location: [place] [address] Electronically authenticated by: [id number] Y Date: 09/15/2024 13:47 Dictated By: Vinicio Loyd D.O. Signed By: 09/15/24 1350 DD/ 1347 TD/TT: Pool Table Operator: [place] [address] Ultrasound Report Signed Patient: SHERON GODINEZ MR#: [id number] : 1995 Acct:[id number] Age/Sex: 29 / F ADM Date: 09/15/24 Loc: US Attending Dr: Jose Miguel Campuzano D.O. Ordering Physician: Jose Miguel Campuzano D.O. Date of Service: 09/15/24 Procedure(s): US pel vis transvaginal Accession Number(s): [id number] cc: NOEMI JIANG ; Jose Miguel Campuzano D.O. [place] [id number] Patient Name: SANDY GODINEZ MRN: [id number] date: 1995 Sex: F Assigned Patient Location: US Current Patient Location: US Accession/Order Numb er: [id number] Exam Date: 09/15/2024 13:45 Report Date: 09/15/2024 [...] Vinicio Loyd M.D.09/15/2024 1:47 PM Dictation Location[facility] Electronically authenticated by: [id number] Y Date: 09/15/2024 13:47 Dictated By: Vinicio Loyd D.O. Signed By: 09/15/24 1350 DD/ 1347 TD/TT: Pool Table Operator: INSULIN Reviewed date:08/13/2024 02:35:55 PM Interpretation: Performing Lab: Notes/Report: [facility] , Insulin 13.6 2.6-24.9 uIU/mL Performed at: [facility] [address] [id number] Data Reduction Technician: Chiki Santoyo PhD, Phone: [phone] Performing Lab: see note - [facility] LB GLYCOHEMOGLOBIN A1C Reviewed date:08/13/2024 02:35:55 PM Interpretation: Performing Lab: Notes/Report: [facility] , Glycohemoglobin A1C 5.1 4.5-6.2 % ADA RECOMMENDED LIMIT 4.0 - 6.0 ADA THERAPEUTIC TARGET < 7.0 ACTION SUGGESTED > 7.0 Estimated Average Glucose 100 Performing Lab: see note - [facility] LB PROF 14(COMP METB) Reviewed date:03/02/2024 10:30:32 AM Interpretation: Performing Lab: Notes/Report: [facility] , Sodium 142 136-145 mmol/L Potassium [...] Performing Lab: see note ML - [facility] LB CBC AUTO DIFF Reviewed date:03/02/2024 10:30:32 AM Interpretation: Performing Lab: Notes/Report: [facility] , White Blood Count 10.1 4.0-11.0 [...] Performing Lab: see note ML - [facility] LB US renal bladder Reviewed date:11/18/2024 10:21:00 AM Interpretation: Performing Lab: Notes/Report: Source Facility: [place] [address] Ultrasound Report Signed Patient: SANDY GODINEZ MR#: [id number] : 1995 Acct:[id number] Age/Sex: 29 / F ADM Date: 11/18/24 Loc: US Attending Dr: NOEMI JIANG Ordering Physician: NOEMI JIANG Date of Service: 11/18/24 Procedure(s): US renal bladder Accession Number(s): [id number] cc: NOEMI JIANG [place] [address] Patient Name: SANDY GODINEZ MRN: [id number] date: 1995 Sex: F Assigned Patient Location: US Current Patient Location: US Accession/Order Number: [id number] Exam Date: 11/18/2024 09:34 Report Date: 11/18/2024 09:37 At the request of: NOEMI JIANG Procedure: US renal bladder BILATERAL RENAL AND [...] Trujillo M.D. 11/18/2024 9:37 AM Dictation Location: [place] [address] Electronically authenticated by: [id number] Y Date: 11/18/2024 09:37 Dictated By: Pieadd Trujillo M.D. Signed By: 11/18/24 0939 DD/ 6 TD/TT: Pool Table Operator: [address] [address] Ultrasound Report Signed Patient: SHERON GODINEZ MR#: [id number] : 1995 Acct:[id number] Age/Sex: 29 / F ADM Date: 11/18/24 Loc: US Attending Dr: NOEMI JIANG Ordering Physician: NOEMI JIANG Date of Service: 11/18/24 Procedure(s): US piyush al bladder Accession Number(s): [id number] cc: NOEMI JIANG [place] [id number] Patient Name: SANDY GODINEZ MRN: [id number] date: 1995 Sex: F Assigned Patient Location: US Current Patient Location: Accession/Order Numb er: [id number] Exam Date: 11/18/2024 09:34 Report Date: 11/18/2024 09:37 At the request of: NOEMI JIANG Procedure: US renal bladder BILATERAL RENAL AND [...] Trujillo M.D. 11/18/2024 9:37 AM Dictation Location: [place] [address] Electronically authenticated by: [id number] Y Date: 11/18/2024 09:37 Dictated By: Piedad Trujillo M.D. Signed By: 11/18/24 0939 DD/ 6 TD/TT: Pool Table Operator: Urine Culture - [facility] Reviewed date:11/19/2024 09:22:21 AM Interpretation: Performing Lab: Notes/Report: [facility] , Urine Culture - FR See Below For Report Urine Culture - [facility] <9,000 colonies/ml mixed Urine Culture - [facility] bacterial skin contaminants Urine Culture - [facility] <9,000 colonies/ml mixed Urine Culture - [facility] 2 Days Urine Culture - [facility] <9,000 colonies/ml mixed Urine Culture - [facility] Urine Culture - [facility] <9,000 colonies/ml mixed Urine Culture - [facility] Testing performed a [facility] Urine Culture - [facility] <9,000 colonies/ml mixed Urine Culture - [facility] [address] [place] [address] Urine Culture - [facility] <9,000 colonies/ml mixed Performing Lab: see note ML - [facility] LB HCG Qualitative Urine Reviewed date:11/16/2024 11:46:14 AM Interpretation: Performing Lab: Notes/Report: [facility] , HCG Qualitative Urine* NEGATIVE NEGATIVE Performing Lab: see note ML - [facility] LB URINE MICROSCOPIC ONLY Reviewed date:11/16/2024 11:46:14 AM Interpretation: Performing Lab: Notes/Report: [facility] , WBC Urine 5-10 NONE SEEN #/HPF RBC Urine 0-2 0-2 #/HPF Bacteria Urine SMALL NONE SEEN #/HPF Mucus Urine NONE SEEN NONE SEEN Squamous Epithelial Cell Urine FEW NONE/RARE #/LPF Crystals Seen? None Seen None Seen #/HPF Cast Seen? NONE SEEN NONE SEEN #/LPF Urine Culture Indicated YES-[facility] Performing Lab: see note ML - [facility] LB UA (CLEAN or CATCH) OPERATOR TECHNICIAN or M ICRO IF IND. Reviewed date:11/16/2024 11:46:14 AM Interpretation: Performing Lab: Notes/Report: [facility] , Color Urine YELLOW YELLOW Clarity Urine CLEAR CLEAR Specific [place] Urine 1.025 1.005-1.025 pH Urine 6.0 5.0-9.0 Protein Urine NEGATIVE NEG/TRACE mg/dL Glucose Urine UA NEGATIVE NEGATIVE mg/dL Bilirubin Urine NEGATIVE NEGATIVE Ketones Urine NEGATIVE NEGATIVE mg/dL Blood Urine TRACE-I NEGATIVE Nitrite Urine NEGATIVE NEGATIVE Urobilinogen Urine 0.2 0.2-1.0 EU/dL Leukocyte Esterase Urine MODERATE NEGATIVE Urine Microscopic Indicated YES Performing Lab: see note ML - [facility] LB PROF 14(COMP METB) Reviewed date:11/16/2024 11:46:14 AM Interpretation: Performing Lab: Notes/Report: [facility] , Sodium 144 136-145 mmol/L Potassium [...] Globulin Ratio 1.0 Performing Lab: see note - [facility] LB CRP Reviewed date:11/16/2024 11:46:14 AM Interpretation: Performing Lab: Notes/Report: [facility] , C Reactive Protein 0.51 <=0.50 mg/dL Performing Lab: see note - [facility] LB CBC AUTO DIFF Reviewed date:11/16/2024 11:46:14 AM Interpretation: Performing Lab: Notes/Report: [facility] , White Blood Count 9.1 4.0-11.0 [...] Performing Lab: see note ML - [facility] LB IGP,Aptima HPV,Age Gdln Reviewed date:10/22/2024 11:54:07 AM Interpretation: Performing Lab: Notes/Report: BRUSH-SPATULA CERVIX ENDOCERVIX [facility] , Age Gdln ACOG Testing Note . TESTS RESULT FLAG UNITS REF RANGE LAB Clinician Provided Cytology Information Source.............Cer vix;Endocervix No. of containers..01 ThinPrep Vial Age Algo ACOG Ela... -15 07 FLAG LEGEND: L-Low Normal,H-High Normal,LL-Alert Low,HH-Alert High <-Panic Low,>-Panic High,A-Abnormal,AA-Cri tical Abnormal Performed at: 01 =G [facility] [place] [address] [facility] [place] [address] Katherine Thomason MD, IGP, rfx Aptima HPV ASCU Note . TESTS RESULT FLAG UNITS REF RANGE LAB DIAGNOSIS: 02 NEGATIVE FOR INTRAEPITHELIAL LESION OR MALIGNANCY. Specimen adequacy: 02 Satisfactory for evaluation. Endocervical and/or squamous metaplastic cells (endocervical component) are present. Performed by: Briana Murillo, [place] [facility] ([facility]) . 02 Note: Note 02 The [...] Low,>-Panic High,A-Abnormal,AA-Cri tical Abnormal Performed at: [address] [address] Katherine Thomason MD, Performed at: = - [facility] [address] [id number] Data Reduction Technician: Katherine Thomason MD, Phone: [phone] Performed at: - [facility] [id number] Data Reduction Technician: Katherine Thomason MD, Phone: [phone] Performing Lab: see note - [facility] LB Vitamin B12 Reviewed date:08/13/2024 02:35:55 PM Interpretation: Performing Lab: Notes/Report: [facility] , Vitamin B12 239 072-7505 pg/mL Performed at: [facility] [address] [id number] Data Reduction Technician: Chiki Santoyo PhD, Phone: [phone] Performing Lab: see note - [facility] LB Reason For Referral Reason fibromyalgia Diagnosis 1 Fibromyalgia (M79.7) Referral Organization [facility] Referring Provider First Name Noemi Referring Provider Last Name [facility] Referring Provider [facility] Referred Provider Uri Ley Referred Provider Specialty Rheumatology Referral Priority Routine Diagnosis 1 Mild scoliosis (M41. 9) Referral Organization [facility] Referring Provider First Name [facility] Referring Provider Last Name [facility] Referring Provider [facility] Referred Provider Josue Sagastume Referred Provider Specialty Orthopedic S urgery Referral Priority Routine Diagnosis 1 Recurrent UTI (N39.0 ) Referral Organization [facility] Referring Provider First Name Noemi Referring Provider Last Name [facility] Referring Provider [facility] icine Referred Provider Yuliana Lomeli Referred Provider Specialty [...] Status W/U Status Risk Notes Problem Fatigue (10202091) Fatigue (R53.83) Active confirmed Problem Anemia (415382253) Anemia (D64.9) Active confirmed Problem Vitamin D deficiency (25384032) Vitamin D deficiency (E55.9) Active confirmed Problem Sinusitis (77024356) Sinusitis (J32.9) Active confirmed Problem Fatty liver (431000423) Fatty liver (K76.0) Active confirmed Problem Cholelithiasis (578785281) Cholelithiases (K80.20) Active confirmed Problem Fibromyalgia (176535161) Fibromyalgia (M79.7) Active confirmed Problem Scoliosis (071338259) Mild scoliosis (M41.9) Active confirmed Problem Abnormal liver function (10817971) Abnormal liver function (K76.89) Active confirmed Problem Lesion of liver (641853671) Liver lesion (K76.9) Active confirmed Problem Mixed anxiety and depressive disorder (733262512) Anxiety and depression (F41.9) Active confirmed Vital Signs Temperature 97.9 degrees Fahrenheit 06/22/2024 Blood pressure diastolic 72 mm Hg 02/22/2025 Height 63 in 02/22/2025 Blood pressure systolic 112 mm Hg 02/22/2025 Weight 181.0 lbs 02/22/2025 BMI 32.06 kg/m2 02/22/2025 Encounters Encounter Location Date Provider Diagnosis [facility] [address] [place] [address] 09/30/2024 Noemi Jiang Elevated liver enzym es R74.8 [facility] [address] [place] [address] 10/06/2024 Noemi Jiang [facility] [address] [place] [address] 10/06/2024 Noemi Jiang Abnormal liver funct ion K76.89 [facility] [address] [place] [address] 10/08/2024 Noemi Jiang Fatty liver K76.0 [facility] [address] [facility] [place] [address] 10/22/2024 Noemi Jiang Fatty liver K76.0 [facility] [address] [facility] [place] [address] 11/03/2024 Noemi Jiang Back pain M54.9 [facility] [address] [facility] [place] [address] 11/06/2024 Noemi Jiang Mild scoliosis M41.9 [facility] [address] [facility] [place] [address] 11/18/2024 Noemi Jiang Recurrent UTI N39.0 [facility] [address] [facility] [place] [address] 10/28/2024 Noemi Jiagn Umbilical hernia K42 .9 ; Liver lesion K76.9 and Back pain M54.9 [facility] [address] [facility] [place] [address] 02/22/2025 Noemi Jiang Fatigue R53.83 and Vitamin D deficiency E55.9 [facility] [address] [facility] [place] [address] 03/26/2024 Noemi Jiang Hemorrhoid K64.9 and Fibromyalgia M79.7 [facility] [address] [facility] [place] [address] 06/22/2024 Noemi Jiang Sinusitis J32.9 [facility] [address] [facility] [place] [address] 08/11/2024 Noemi Jiang Fatigue R53.83 [facility] [address] [facility] [id number] 08/14/2024 Noemi Jiang Vitamin D deficiency E55.9 and Elevated liver enzymes R74.8 [facility] [address] [facility] [place] [address] 09/16/2024 Jose Alberto Hoy Headache R51.9 and Gastroenteritis K52.9 [facility] [address] [facility] [place] [address] 11/16/2024 Noemi Jiang Frequent UTI N39.0 ; [...] 3 yo fu visit to review 08/14/2024 Vitamin D deficiency (ICD-10 - E55.9) 08/14/2024 Elevated liver enzymes (ICD-10 - R74.8) repeat labs 1 month repeat US? no gallbladder 09/16/2024 Headache (ICD-10 - R51.9) 10/28/2024 Umbilical hernia (ICD-10 - K42.9) continue monitor discuss with Justen as doing exp lap 10/28/2024 Liver lesion (ICD-10 - K76.9) continue to monitor unchanged from prev imaging 11/16/2024 Frequent UTI (ICD-10 - N39.0) 11/16/2024 Back pain (ICD-10 - M54.9) Toradol 30 IM has fu ortho on 09/30/2024 Elevated liver enzymes (ICD-10 - R74.8) 10/06/2024 Abnormal liver function (ICD-10 - K76.89) 10/08/2024 Fatty liver (ICD-10 - K76.0) 10/22/2024 Fatty liver (ICD-10 - K76.0) 11/03/2024 Back pain (ICD-10 - M54.9) 11/06/2024 Mild scoliosis (ICD-10 - M41.9) 11/18/2024 Recurrent UTI (ICD-10 - N39.0) 02/22/2025 Fatigue (ICD-10 - R53.83) 02/22/2025 Vitamin D deficiency (ICD-10 - E55.9) 11/16/2024 Oral lesion (ICD-10 - K13.70) 10/28/2024 Back pain (ICD-10 - M54.9) 09/16/2024 Gastroenteritis (ICD-10 - K52.9) Get plenty of rest. Stay hydrated by sucking on ice chips or taking small sips of water. You can also try drinking clear soda, clear broths or noncaffeinated sports drinks. Stop eating solid foods for a few hours to let your stomach settle. East back into eating by eating bland, kyye-ol-odepfl foods like crackers, toast, gelatin, bananas, rice and chicken. Try to avoid foods/substances including dairy products, caffeine, alcohol, nicotine and fatty or highly seasoned foods. Medications such as ibuprofen or tylenol can make your stomach more upset, so use sparingly if at all. Also avoid qmkh-ukm-udswbxr anti-diarrheal medications because it can make it harder for your body to eliminate the virus. 03/26/2024 Fibromyalgia (ICD-10 - M79.7) would like to revisit rheum trial of flexeril? chiro regularly, not helping Plan Of Treatment Pending Test Test Name Order Date CMP (COMPLETE METABOLIC PANEL) 3 UA (URINALYSIS, COMPLETE) 01/31/2023 HEMOGLOBIN A1C (GLYCO) 01/31/2023 HEMOGLOBIN A1C (GLYCO) 08/11/2024 IRON, TOTAL 08/11/2024 IRON, TOTAL 01/31/2023 IRON, TOTAL 02/22/2025 LIPID PANEL (CHOL/TRIG/HDL/LDL) 02/01/20 23 LIPID PANEL (CHOL/TRIG/HDL/LDL) 08/11/19 25 CBC WITH DIFF 08/11/2024 CBC WITH DIFF 01/31/2023 VITAMIN D, 25 LEVEL (TOTAL) 02/22/2025 VITAMIN D, 25 LEVEL (TOTAL) 08/11/2024 VITAMIN D, 25 LEVEL (TOTAL) 01/31/2023 XR Spine Scoliosis Film * 10/28/2024 URINE CULTURE 01/31/2023 Insulin Level 01/31/2023 Insulin Level 08/11/2024 CMP - Comprehensive Metabolic Panel 09/15 CT Abdomen w/ + w/o Contrast 10/22/2024 CT Liver/spleen wo/w Cont 10/08/2024 PT and PTT 02/22/2025 COVID-19, Flu A+B IH 09/16/2024 VITAMIN B12 08/11/2024 US KIDNEYS BLADDER 11/16/2024 THYROID PANEL (T4/TSH/FREE T3) 5 THYROID PANEL (T4/TSH/FREE T3) 3 THYROID PANEL (T4/TSH/FREE T3) 5 XR SCOLIOSIS SERIES 2 TO 3 VIEWS 025 CMP (COMP MET REESE) w/eGFR CKD-EPI 2024 CMP (COMP MET REESE) w/eGFR CKD-EPI 2024 CBC WITH DIFF 02/22/2025 Insurance Providers Payer Name Payer Address Payer Phone Subscriber Number Group Number Insured Name Patient Relationship to Insured Coverage Start Date Coverage End Date [employer] [place] [employer] [address] [place] [address] [id number] Sandy Godinez Self - patient is the insured 3 Medications Administered Medication Instructions Date of Administration Dosage Notes Ketorolac Tromethamine 09/16/2024 60 mg Medical (General) History Medical History History ICD Code Anemia D64.9 Fatigue R53.83 Anxiety and depression F41.9 Fibromyalgia M79.7 Surgical History Surgery Date(Month/Year) Gallbladder 03/10/24 [place] teeth D&C Tonsillectomy
--- OUTSIDE RECORDS SUMMARY | 2025-02-22 13:07 | XMS_ITS | Encounter Summary ---
Author Organization [facility] Address [address] [place] [address] Care Team Providers Care Service Learning Coordinator Name Role Phone Raudel Osborne MD Primary Care Provider [phone] Jose Miguel Campuzano DO Unavailable Encounter Details Date Type Department Care Team (Late st Contact Info) Description 12/24/2023 Clinisync Result Encounter [facility] External Department Unsolicited Jose Miguel Campuzano, DO [address] [address] Social History Tobacco Use Types Packs/Day Years [...] PM EDT Narrative 12/24/2023 12:22 [place] [address] Ultrasound Report Signed Patient: DOMENIC GODINEZ MR#: [id number] : 1995 Acct:[id number] Age/Sex: 28 / F ADM Date: 12/24/23 Loc: US Attending Dr: Jose Miguel Campuzano D.O. Ordering Physician: Jose Miguel Campuzano D.O. Date of Service: 12/24/23 Procedure(s): US OB cervical length Accession Number(s): [id number] cc: DUARTE VALDERRAMA ; Jose Miguel Campuzano D.O. The [place] [id number] Patient Name: DOMENIC GODINEZ MRN: [id number] date: 1995 Sex: F Assigned Patient Location: Current Patient Location: US Accession/Order Number: [id number] Exam Date: 12/24/2023 12:00 Report Date: 12/24/2023 [...] cm in length Electronically authenticated by: KIRK OAETS Date: 12/24/2023 12:20 Dictated By: Kirk Oates M.D. Signed By: 12/24/23 1222 DD/ 1220 TD/TT: Tissue Rewinder: Procedure Note Radiology, Radiologist, MD - 12/24/2023 [place] [address] Ultrasound Report Signed Patient: DOMENIC GODINEZ JMR#: [id number] : 1995Acct:[id number] Age/Sex: 28 / FADM Date: 12/24/23 Loc: US Attending Dr: Jose Miguel Campuzano D.O. Ordering Physician: Jose Miguel Campuzano D.O. Date of Service: 12/24/23 Procedure(s): US OB cervical length Accession Number(s): [id number] cc: DUARTE VALDERRAMA ; Jose Miguel Campuzano D.O. [address] [id number] Patient Name: DOMENIC GODINEZ MRN: [id number] date: 1995 Sex: F Assigned Patient Location: US Current Patient Location: US Accession/Order Number: [id number] Exam Date: 12/24/2023 12:00 Report Date: 12/24/2023 [...] 12:20 Dictated By: Kirk Oates M.D. Signed By:12/24/23 1222 DD/ 1220 TD/TT: Tissue Rewinder: Jose Miguel Campuzano DO [facility] Final Result documented in this encounter Visit Diagnoses Not on filedocumented in this encounter Care Teams Service Learning Coordinator Relationship Specialty Start Date End Date Raudel Osborne MD [address] [place] [address] PCP - General Family Medicine 03/02/24 Jose Miguel Campuzano DO [address] [place] [address] [place] [address] PCP - [facility] 03/17/24 documented as of this encounter
--- OUTSIDE RECORDS SUMMARY | 2025-02-22 13:08 | XMS_ITS | Encounter Summary ---
Author Organization [facility] Address [address] [place] [address] Care Team Providers Care Meters Superintendent Name Role Phone Raudel Osborne MD Primary Care Provider [phone] Edward Campuzano DO Unavailable Encounter Details Date Type Department Care Team (Late st Contact Info) Description 12/25/2024 Abstract [facility] [address] [place] [address] Edward Campuzano DO [address] [facility] [address] [place], [facility] Social History Tobacco Use Types Packs/Day Years [...] on filedocumented in this encounter Care Teams Meters Superintendent Relationship Specialty Start Date End Date Raudel Osborne MD [address] [place] [address] PCP - General Family Medicine 03/02/24 Edward Campuzano DO [address] [place] [address] [place] [address] PCP - [facility] [address] 03/17/24 documented as of this encounter
--- OUTSIDE RECORDS SUMMARY | 2025-02-22 13:08 | XMS_ITS | Encounter Summary ---
Author Organization [facility] Address [address] [place] [address] Care Team Providers Care Administrative Services Specialist Name Role Phone Raudel Osborne MD Primary Care Provider [phone] Jose Miguel Campuzano DO Unavailable Encounter Details Date Type Department Care Team (Late st Contact Info) Description 02/03/2024 Clinisync Result Encounter [facility] External Department Unsolicited Jose Miguel Campuzano, DO [address] [place] [id number] Social History Tobacco Use Types Packs/Day Years [...] PM EDT Narrative 02/03/2024 1:20 PM EDT [place] [id number] Ultrasound Report Signed Patient: DOMENIC GODINEZ MR#: [id number] : 1995 Acct:[id number] Age/Sex: 28 / F ADM Date: 02/03/24 Loc: US Attending Dr: Jose Miguel Campuzano D.O. Ordering Physician: Jose Miguel Campuzano D.O. Date of Service: 02/03/24 Procedure(s): US OB BPP w non-stress Accession Number(s): [id number] cc: DUARTE VALDERRAMA ; Jose Miguel Campuzano D.O. [address] [address] Patient Name: DOMENIC GODINEZ MRN: [id number] date: 1995 Sex: F Assigned Patient Location: US Current Patient Location: Accession/Order Number: [id number] Exam Date: 02/03/2024 11:30 Report Date: 02/03/2024 [...] Signed By: 02/03/24 1320 DD/ 1318 TD/TT: Economics Professor: Procedure Note Radiology, Radiologist, - 02/03/2024 The [place] [id number] Ultrasound Report Signed Patient: DOMENIC GODINEZ JMR#: [id number] : 1995Acct:[id number] Age/Sex: 28 / FADM Date: 02/03/24 Loc: US Attending Dr: Jose Miguel Campuzano D.O. Ordering Physician: Jose Miguel Campuzano D.O. Date of Service: 02/03/24 Procedure(s): US OB BPP w non-stress Accession Number(s): [id number] cc: DUARTE VALDERRAMA ; Jose Miguel Campuzano D.O. The [place] [id number] Patient Name: DOMENIC GODINEZ MRN: [id number] date: 1995 Sex: F Assigned Patient Location: US Current Patient Location: Accession/Order Number: [id number] Exam Date: 02/03/2024 11:30 Report Date: 02/03/2024 [...] M.D. Signed By:02/03/24 1320 DD/ 1318 TD/TT: Economics Professor: us Jose Miguel Campuzano DO [facility] Final Result documented in this encounter Visit Diagnoses Not on filedocumented in this encounter Care Teams Administrative Services Specialist Relationship Specialty Start Date End Date Raudel Osborne MD [address] [facility] [place] [address] PCP - General Family Medicine 03/02/24 Jose Miguel Campuzano DO [address] [place] [address] [place] [address] PCP - [facility] 03/17/24 documented as of this encounter
--- OUTSIDE RECORDS SUMMARY | 2025-02-22 13:08 | XMS_ITS | Encounter Summary ---
Author Organization [facility] Address [address] [place] [address] Care Team Providers Care Sporting Goods Salesperson Name Role Phone Raudel Osborne MD Primary Care Provider [phone] Jose Miguel Campuzano DO Unavailable Encounter Details Date Type Department Care Team (Late st Contact Info) Description 01/27/2024 Clinisync Result Encounter [facility] External Department Unsolicited Jose Miguel Campuzano, DO [address] [place] [address] Social History Tobacco Use Types Packs/Day Years [...] Procedure Name Priority Date/Time Associated Diagnosis Comments [facility] BOX TEST SENT OUT Routine 01/27/2024 2:35 PM EDT US OB UMBILICAL ARTERY DOPPLER 01/27/2024 1:23 PM EDT documented in this encounter Results * [facility] BOX TEST SENT OUT (01/27/2024 2:35 PM EDT) BOX TEST SENT OUT [facility] Comment:See Scanned Report. 01/27/2024 2:35 PM EDT 01/28/2024 6:45 AM EDT Narrative [facility] - 02/11/2024 8:06 AM EDT GROUP B STREP SENT TO LAB [facility] us Jose Miguel Campuzano DO [facility] Final Result [facility] * US OB UMBILICAL ARTERY DOPPLER (01/27/2024 1:23 PM EDT) Anatomical Region Laterality Modality Radiographic Ada ging 01/27/2024 1:23 PM EDT Narrative 01/27/2024 2:00 [place] [address] Ultrasound Report Signed Patient: DOMENIC GODINEZ MR#: [id number] : 1995 Acct:[id number] Age/Sex: 28 / F ADM Date: 01/27/24 Loc: US Attending Dr: Jose Miguel Campuzano D.O. Ordering Physician: Jose Miguel Campuzano D.O. Date of Service: 01/27/24 Procedure(s): US OB umbilical artery Accession Number(s): [id number] cc: DUARTE VALDERRAMA ; Jose Miguel Campuzano D.O. [place] [address] Patient Name: DOMENIC GODINEZ MRN: [id number] date: 1995 Sex: F Assigned Patient Location: [facility] Current Patient Location: Accession/Order Number: [id number] Exam Date: 01/27/2024 11:00 Report Date: 01/27/2024 [...] Signed By: 01/27/24 1400 DD/ 1323 TD/TT: Telecommunications Repairer: Procedure Note Radiology, Radiologist, MD - 01/27/2024 [place] [address] Ultrasound Report Signed Patient: DOMENIC GODINEZ R#: [id number] : 1995Acct:[id number] Age/Sex: 28 / FADM Date: 01/27/24 Loc: US Attending Dr: Jose Miguel Campuzano D.O. Ordering Physician: Jose Miguel Capmuzano D.O. Date of Service: 01/27/24 Procedure(s): US OB umbilical artery Accession Number(s): [id number] cc: DUARTE VALDERRAMA ; Jose Miguel Campuzano D.O. The [place] [address] Patient Name: DOMENIC GODINEZ MRN: [id number] date: 1995 Sex: F Assigned Patient Location: [facility] Current Patient Location: Accession/Order Number: [id number] Exam Date: 01/27/2024 11:00 Report Date: 01/27/2024 [...] M.D. Signed By:01/27/24 1400 DD/ 1323 TD/TT: Telecommunications Repairer: Jose Miguel Campuzano DO IMG XR PROCEDURES Final Result documented in this encounter Visit Diagnoses Not on filedocumented in this encounter Care Teams Sporting Goods Salesperson Relationship Specialty Start Date End Date Raudel Osborne MD [address] [facility] [place] [address] PCP - General Family Medicine 03/02/24 Jose Miguel Campuzano DO [address] [place] [address] [place] [address] PCP - [facility] 03/17/24 documented as of this encounter
--- OUTSIDE RECORDS SUMMARY | 2025-02-22 13:08 | XMS_ITS | Encounter Summary ---
Author Organization [facility] Address [address] [place] [address] Care Team Providers Care Correspondence Review Clerk Name Role Phone Raudel Osborne MD Primary Care Provider [phone] Edward Campuzano DO Unavailable Encounter Details Date Type Department Care Team (Late st Contact Info) Description 02/04/2024 Abstract [facility] [address] [facility] [place] [address] Edward Campuzano DO [address] [facility] [address] [place], [facility] Social History Tobacco Use Types Packs/Day [...] on filedocumented in this encounter Care Teams Correspondence Review Clerk Relationship Specialty Start Date End Date Raudel Osborne MD [address] [place] [address] PCP - General Family Medicine 03/02/24 Edward Campuzano DO [address] [place] [address] [place] [address] PCP - [facility] 03/17/24 documented as of this encounter
--- OUTSIDE RECORDS SUMMARY | 2025-02-22 13:08 | XMS_ITS | Encounter Summary ---
Author Organization [facility] Address [address] [place] [place] [address] Care Team Providers Care South Asian History Professor Name Role Phone Raudel Osborne MD Primary Care Provider [phone] Jose Miguel Campuzano DO Unavailable Encounter Details Date Type Department Care Team (Late st Contact Info) Description 07/19/2023 Clinisync Result Encounter [facility] External Department Unsolicited Jose Miguel Campuzano, DO [address] [place] [id number] Social History Tobacco Use Types Packs/Day Years [...] AM EST Narrative 07/19/2023 9:05 [place] [address] Ultrasound Report Signed Patient: DOMENIC GODINEZ MR#: [id number] : 1995 Acct:[id number] Age/Sex: 27 / F ADM Date: 07/19/23 Loc: NOMS Attending Dr: Jose Miguel Campuzano D.O. Ordering Physician: Jose Miguel Campuzano D.O. Date of Service: 07/19/23 Procedure(s): US OB transvaginal Accession Number(s): [id number] cc: UDARTE VALDERRAMA ; Jose Miguel Campuzano D.O. [place] [address] Patient Name: DOMENIC GODINEZ MRN: [id number] date: 1995 Sex: F Assigned Patient Location: [facility] Current Patient Location: [facility] Accession/Order Number: [id number] Exam Date: 07/19/2023 08:30 Report Date: 07/19/2023 [...] M.D. Signed By: 07/19/23904 DD/ 1 TD/TT: Solutions Market Consultant: Procedure Note Radiology, Radiologist, MD - 07/19/2023 [place] [address] Ultrasound Report Signed Patient: DOMENIC GODINEZ R#: [id number] : 1995Acct:[id number] Age/Sex: 27 / FADM Date: 07/19/23 Loc: [facility] Attending Dr: Jose Miguel Campuzano D.O. Ordering Physician: Jose Miguel Campuzano D.O. Date of Service: 07/19/23 Procedure(s): US OB transvaginal Accession Number(s): [id number] cc: DUARTE VALDERRAMA ; Jose Miguel Campuzano D.O. The [place] [address] Patient Name: DOMENIC GODINEZ MRN: [id number] date: 1995 Sex: F Assigned Patient Location: [facility] Current Patient Location: [facility] Accession/Order Number: [id number] Exam Date: 07/19/2023 08:30 Report Date: 07/19/2023 [...] BY US CRL: 8 weeks 3 days NVOA BY US CRL: 02/25/2024 US/US OB transvaginal IMPRESSION: 1. Single live intrauterine . Electronically authenticated by: JOSUE KEBEDE Date: 07/19/2023 09:02 Dictated By: Josue Kebede M.D. Signed By:07/19/23904 DD/ 1 TD/TT: Solutions Market Consultant: Jose Miguel Campuzano DO [facility] Final Result documented in this encounter Visit Diagnoses Not on filedocumented in this encounter Care Teams South Asian History Professor Relationship Specialty Start Date End Date Raudel Osborne MD [address] [place] [address] PCP - General Family Medicine 03/02/24 Jose Miguel Campuzano DO [address] [place] [address] [address] [place] [place] [address] PCP - [facility] 03/17/24 documented as of this encounter
--- OUTSIDE RECORDS SUMMARY | 2025-02-22 13:08 | XMS_ITS | Encounter Summary ---
Author Organization [facility] Address [address] [place] [address] Care Team Providers Care Instructional Technology Coach Name Role Phone Raudel Osborne MD Primary Care Provider [phone] Edward Campuzano DO Unavailable Encounter Details Date Type Department Care Team (Late st Contact Info) Description 02/06/2024 Abstract [facility] [address] [facility] [place] [address] Edward Campuzano DO [address] [facility] [address] [place], [facility]11 Social History Tobacco Use Types Packs/Day [...] on filedocumented in this encounter Care Teams Instructional Technology Coach Relationship Specialty Start Date End Date Raudel Osborne MD [address] [place] [address] PCP - General Family Medicine 03/02/24 Edward Campuzano DO [address] [place] [address] [place] [address] PCP - [facility] 03/17/24 documented as of this encounter
--- OUTSIDE RECORDS SUMMARY | 2025-02-22 13:08 | XMS_ITS | Clinical Summary ---
Author Organization [facility] Address [address] [facility], [address] [place] [address] Care Team Providers Care Track Vehicle Repairer Name Role Phone Unavailable Primary Care Provider [...] Mass Index - - Plan of Treatment Not on file Insurance [facility] Advance Directives * Full Code (Latest Code Status on File) Date Activated Date Inactivated Comments 01/17/2022 4:57 PM 01/18/2022 6:05 PM
--- OUTSIDE RECORDS SUMMARY | 2025-02-22 13:08 | XMS_ITS | Encounter Summary ---
Author Organization [facility] tem Address [id number] [address] [place] [address] Care Team Providers Care Horticulture Instructor Name Role Phone Unavailable Primary Care Provider Unavailabl e Encounter Details Date Type Department Care Team (Late st Contact Info) Description 12/17/2023 Orders Only Maternal- Medicine at [facility] [address] [place] [address] Cathy Longo, RN Social History Tobacco Use [...]
--- OUTSIDE RECORDS SUMMARY | 2025-02-22 13:08 | XMS_ITS | Clinical Summary ---
Author Organization [facility] Address [id number] [address] [place] [address] Care Team Providers Care Hammerer Helper Name Role Phone Unavailable Primary Care Provider [...] needed for nausea or vomiting. Active PNV no.[id number]-[id number]-dha- epa-fish 400 mcg-35 mg- 25 mg-5 mg [...]
--- OUTSIDE RECORDS SUMMARY | 2025-02-22 13:08 | XMS_ITS | Encounter Summary ---
Author Organization [facility] Address [address] [place] [address] Care Team Providers Care Contract Driver Name Role Phone Raudel Osborne MD Primary Care Provider [phone] Edward Campuzano DO Unavailable Encounter Details Date Type Department Care Team (Late st Contact Info) Description 02/05/2024 Abstract [facility] [address] [facility] [address] Edward Campuzano DO [address] [facility] [address] [place], [facility]11 Social History Tobacco Use Types Packs/Day [...] on filedocumented in this encounter Care Teams Contract Driver Relationship Specialty Start Date End Date Raudel Osborne MD [address] [place] [address] PCP - General Family Medicine 03/02/24 Edward Campuzano DO [address] [place] [address] [place] [address] PCP - [facility] 03/17/24 documented as of this encounter
--- OUTSIDE RECORDS SUMMARY | 2025-02-22 13:08 | XMS_ITS | Encounter Summary ---
Author Organization [facility] Address [address] [place] [address] Care Team Providers Care Insurance Claims Examiner Name Role Phone Raudel Osborne MD Primary Care Provider [phone] Jose Miguel Campuzano DO Unavailable Encounter Details Date Type Department Care Team (Late st Contact Info) Description 01/21/2024 Clinisync Result Encounter [facility] External Department Unsolicited Jose Miguel Campuzano, DO [address] Sukumar [place] [phone] Social History Tobacco Use Types Packs/Day Years [...] AM EDT Narrative 01/21/2024 5:45 AM EDT [address] [address] Ultrasound Report Signed Patient: DOMENIC GODINEZ MR#: [id number] : 1995 Acct:[id number] Age/Sex: 28 / F ADM Date: 01/20/24 Loc: US Attending Dr: Jose Miguel Campuzano D.O. Ordering Physician: Jose Miguel Campuzano D.O. Date of Service: 01/20/24 Procedure(s): US OB umbilical artery Accession Number(s): [id number] cc: DUARTE VALDERRAMA ; Jose Miguel Campuzano D.O. [place] [id number] Patient Name: DOMENIC GODINEZ MRN: [id number] date: 1995 Sex: F Assigned Patient Location: [facility] Current Patient Location: US Accession/Order Number: [id number] Exam Date: 01/20/2024 10:58 Report Date: 01/21/2024 [...] Josue Kebede M.D. Signed By: 01/21/2445 DD/ 2 TD/TT: Industrial Accountant: Procedure Note Radiology, Radiologist, MD - 01/21/2024 [place] [address] Ultrasound Report Signed Patient: DOMENIC GODINEZ JMR#: [id number] : 1995Acct:[id number] Age/Sex: 28 / FADM Date: 01/20/24 Loc: US Attending Dr: Jose Miguel Campuzano D.O. Ordering Physician: Jose Miguel Campuzano D.O. Date of Service: 01/20/24 Procedure(s): US OB umbilical artery Accession Number(s): [id number] cc: DUARTE VALDERRAMA ; Jose Miguel Campuzano D.O. The [place] [address] Patient Name: DOMENIC GODINEZ MRN: [id number] date: 1995 Sex: F Assigned Patient Location: [facility] Current Patient Location: US Accession/Order Number: [id number] Exam Date: 01/20/2024 10:58 Report Date: 01/21/2024 [...] Josue Kebede M.D. Signed By:01/21/2445 DD/ TD/TT: Industrial Accountant: us Jose Miguel Campuzano DO IMG XR PROCEDURES Final Result documented in this encounter Visit Diagnoses Not on filedocumented in this encounter Care Teams Insurance Claims Examiner Relationship Specialty Start Date End Date Raudel Osborne MD [address] [place] [address] PCP - General Family Medicine 03/02/24 Jose Miguel Campuzano DO [address] [place] [address] [place] [address] PCP - [facility] 03/17/24 documented as of this encounter
--- OUTSIDE RECORDS SUMMARY | 2025-02-22 13:08 | XMS_ITS | Encounter Summary ---
Author Organization [facility] Address [address] [place] [address] Care Team Providers Care Belt Weaver Name Role Phone Raudel Osborne MD Primary Care Provider [phone] Jose Miguel Campuzano DO Unavailable Encounter Details Date Type Department Care Team (Late st Contact Info) Description 01/21/2024 Clinisync Result Encounter [facility] External Department Unsolicited Jose Miguel Campuzano, DO [address] S[place]umar [place] [phone] Social History Tobacco Use Types Packs/Day Years [...] AM EDT Narrative 01/21/2024 8:13 AM EDT [address] [address] Ultrasound Report Signed Patient: DOMENIC GODINEZ MR#: [id number] : 1995 Acct:[id number] Age/Sex: 28 / F ADM Date: 01/20/24 Loc: US Attending Dr: Jose Miguel Campuzano D.O. Ordering Physician: Jose Miguel Campuzano D.O. Date of Service: 01/20/24 Procedure(s): US OB growth Accession Number(s): [id number] cc: DUARTE VALDERRAMA ; Jose Miguel Campuzano D.O. [place] [address] Patient Name: DOMENIC GODINEZ MRN: [id number] date: 1995 Sex: F Assigned Patient Location: US Current Patient Location: US Accession/Order Number: [id number] Exam Date: 01/20/2024 10:55 Report Date: 01/21/2024 [...] JOSUE KEBEDE Date: 01/21/2024 08:10 Dictated By: Jouse Kebede M.D. Signed By: 01/21/24812 DD/ 9 TD/TT: Compensation Administrator: Procedure Note Radiology, Radiologist, - 01/21/2024 [place] [address] Ultrasound Report Signed Patient: DOMENIC GODINEZ R#: [id number] : 1995Acct:[id number] Age/Sex: 28 / FADM Date: 01/20/24 Loc: US Attending Dr: Jose Miguel Campuzano D.O. Ordering Physician: Jose Miguel Campuzano D.O. Date of Service: 01/20/24 Procedure(s): US OB growth Accession Number(s): [id number] cc: DUARTE VALDERRAMA ; Jose Miguel Campuzano D.O. The [place] [address] Patient Name: DOMENIC GODINEZ MRN: [id number] date: 1995 Sex: F Assigned Patient Location: US Current Patient Location: US Accession/Order Number: [id number] Exam Date: 01/20/2024 10:55 Report Date: 01/21/2024 [...] Kebede M.D. Signed By:01/21/24812 DD/ 9 TD/TT: Compensation Administrator: Jose Miguel Campuzano DO [facility] Final Result documented in this encounter Visit Diagnoses Not on filedocumented in this encounter Care Teams Belt Weaver Relationship Specialty Start Date End Date Raudel Osborne MD [address] [place] [address] PCP - General Family Medicine 03/02/24 Jose Miguel Campuzano DO [address] [place] [address] [place] [address] PCP - [facility] 03/17/24 documented as of this encounter
--- OUTSIDE RECORDS SUMMARY | 2025-02-22 13:08 | XMS_ITS | Encounter Summary ---
Author Organization [facility] Address [address] [place] [address] Care Team Providers Care Pile Driving Superintendent Name Role Phone Raudel Osborne MD Primary Care Provider [phone] Edward Campuzano DO Unavailable Encounter Details Date Type Department Care Team (Late st Contact Info) Description 01/28/2024 Abstract [facility] [address] [facility] [place] [address] Edward Campuzano DO [address] [facility] [address] Sukumar [place], [facility]11 Social History Tobacco Use Types [...] on filedocumented in this encounter Care Teams Pile Driving Superintendent Relationship Specialty Start Date End Date Raudel Osborne MD [address] [place] [address] PCP - General Family Medicine 03/02/24 Edward Campuzano DO [address] [place] [address] [place] [address] PCP - [facility] 03/17/24 documented as of this encounter
--- OUTSIDE RECORDS SUMMARY | 2025-02-22 13:08 | XMS_ITS | Encounter Summary ---
Author Organization [facility] tem Address [id number] [address] [place] [address] Care Team Providers Care Baggage Screener Name Role Phone Unavailable Primary Care Provider Unavailabl e Encounter Details Date Type Department Care Team (Late st Contact Info) Description 11/20/2023 Orders Only Maternal- Medicine at [facility] [address] [place] [phone] Jennifer Smiley RN 24 weeks gestation of [...]
--- OUTSIDE RECORDS SUMMARY | 2025-02-22 13:08 | XMS_ITS | Encounter Summary ---
Author Organization [facility] Address [address] [place] [address] Care Team Providers Care Hogshead Wrecker Name Role Phone Raudel Osborne MD Primary Care Provider [phone] Jose Miguel Campuzano DO Unavailable Encounter Details Date Type Department Care Team (Late st Contact Info) Description 01/20/2024 Clinisync Result Encounter [facility] External Department Unsolicited Jose Miguel Campuzano, DO [address] [facility] [address] [place] [phone] Social History Tobacco Use Types Packs/Day Years [...] PM EDT Narrative 01/20/2024 2:55 [place] [address] Ultrasound Report Signed Patient: DOMENIC GODINEZ MR#: [id number] : 1995 Acct:[id number] Age/Sex: 28 / F ADM Date: 01/20/24 Loc: US Attending Dr: Jose Miguel Campuzano D.O. Ordering Physician: Jose Miguel Campuzano D.O. Date of Service: 01/20/24 Procedure(s): US OB BPP w non-stress Accession Number(s): [id number] cc: DUARTE VALDERRAMA ; Jose Miguel Campuzano D.O. [place] [address] Patient Name: DOMENIC GODINEZ MRN: [id number] date: 1995 Sex: F Assigned Patient Location: US Current Patient Location: Accession/Order Number: [id number] Exam Date: 01/20/2024 10:58 Report Date: 01/20/2024 [...] Signed By: 01/20/24 1455 DD/ 145 TD/TT: Wheel Grinder: Procedure Note Radiology, Radiologist, MD - 01/20/2024 [place] [address] Ultrasound Report Signed Patient: DOMENIC GODINEZ JMR#: [id number] : 1995Acct:[id number] Age/Sex: 28 / FADM Date: 01/20/24 Loc: US Attending Dr: Jose Miguel Campuzano D.O. Ordering Physician: Jose Miguel Campuzano D.O. Date of Service: 01/20/24 Procedure(s): US OB BPP w non-stress Accession Number(s): [id number] cc: DUARTE VALDERRAMA ; Jose Miguel Campuzano D.O. The [place] [id number] Patient Name: DOMENIC GODINEZ MRN: [id number] date: 1995 Sex: F Assigned Patient Location: US Current Patient Location: Accession/Order Number: [id number] Exam Date: 01/20/2024 10:58 Report Date: 01/20/2024 [...] M.D. Signed By:01/20/24 1455 DD/ 1453 TD/TT: Wheel Grinder: us Jose Miguel Campuzano DO [facility] Final Result documented in this encounter Visit Diagnoses Not on filedocumented in this encounter Care Teams Hogshead Wrecker Relationship Specialty Start Date End Date Raudel Osborne MD [address] [place] [address] PCP - General Family Medicine 03/02/24 Jose Miguel Campuzano DO [address] [place] [address] [place] [place] [address] PCP - [facility] 03/17/24 documented as of this encounter
--- OUTSIDE RECORDS SUMMARY | 2025-02-22 13:08 | XMS_ITS | Encounter Summary ---
Author Organization [facility] Address [address] [place] [address] Care Team Providers Care Thread Reeler Name Role Phone Raudel Osborne MD Primary Care Provider [phone] Jose Miguel Campuzano DO Unavailable Encounter Details Date Type Department Care Team (Late st Contact Info) Description 08/06/2023 Clinisync Result Encounter [facility] External Department Unsolicited Jose Miguel Campuzano, DO [address] [place] [phone] Social History Tobacco Use Types Packs/Day Years [...] AM EST Narrative 08/06/2023 11:33 [place] [address] Ultrasound Report Signed Patient: DOMENIC GODINEZ MR#: [id number] : 1995 Acct:[id number] Age/Sex: 27 / F ADM Date: 08/06/23 Loc: US Attending Dr: Jose Miguel Campuzano D.O. Ordering Physician: Jose Miguel Campuzano D.O. Date of Service: 08/06/23 Procedure(s): US OB transvaginal Accession Number(s): [id number] cc: DUARTE VALDERRAMA ; Jose Miguel Campuzano D.O. [place] [id number] Patient Name: DOMENIC GODINEZ MRN: [id number] date: 1995 Sex: F Assigned Patient Location: US Current Patient Location: US Accession/Order Number: [id number] Exam Date: 08/06/2023 11:00 Report Date: 08/06/2023 [...] Signed By: 08/06/23 1133 DD/ 1131 TD/TT: Baker Head: Procedure Note Radiology, Radiologist, MD - 08/21/2023 [place] [address] Ultrasound Report Signed Patient: DOMENIC GODINEZ JMR#: [id number] : 1995Acct:[id number] Age/Sex: 27 / FADM Date: 08/06/23 Loc: US Attending Dr: Jose Miguel Campuzano D.O. Ordering Physician: Jose Miguel Campuzano D.O. Date of Service: 08/06/23 Procedure(s): US OB transvaginal Accession Number(s): [id number] cc: DUARTE VALDERRAMA ; Jose Miguel Campuzano D.O. The [place] [id number] Patient Name: DOMENIC GODINEZ MRN: [id number] date: 1995 Sex: F Assigned Patient Location: US Current Patient Location: US Accession/Order Number: [id number] Exam Date: 08/06/2023 11:00 Report Date: 08/06/2023 [...] M.D. Signed By:08/06/23 1133 DD/ 1131 TD/TT: Baker Head: us Jose Miguel Capmuzano DO [facility] Final Result documented in this encounter Visit Diagnoses Not on filedocumented in this encounter Care Teams Thread Reeler Relationship Specialty Start Date End Date Raudel Osborne MD [address] [place] [address] PCP - General Family Medicine 03/02/24 Jose Miguel Campuzano DO [address] [place] [address] [place] [address] PCP - [facility] 03/17/24 documented as of this encounter
--- OUTSIDE RECORDS SUMMARY | 2025-02-22 13:08 | XMS_ITS | Encounter Summary ---
Author Organization [facility] Address [address] [facility] [place] [address] Care Team Providers Care Security Systems Technician Name Role Phone Raudel Osborne MD Primary Care Provider [phone] Edward Campuzano DO Unavailable Encounter Details Date Type Department Care Team (Late st Contact Info) Description 01/14/2024 Abstract [facility] [address] [facility] [address] Betsy Goodwin PA [address] [facility] [address] [place], [facility]11 Social History Tobacco Use Types Packs/Day [...] on filedocumented in this encounter Care Teams Security Systems Technician Relationship Specialty Start Date End Date Raudel Osborne MD [address] [place] [address] PCP - General Family Medicine 03/02/24 Edward Campuzano DO [address] [place] [address] [place] [address] PCP - [facility] 03/17/24 documented as of this encounter
--- OUTSIDE RECORDS SUMMARY | 2025-02-22 13:08 | XMS_ITS | Encounter Summary ---
Author Organization [facility] Address [address] [place] [address] Care Team Providers Care Costumed Character Entertainer Name Role Phone Raudel Osborne MD Primary Care Provider [phone] Jose Miguel Campuzano DO Unavailable Encounter Details Date Type Department Care Team (Late st Contact Info) Description 01/13/2024 Clinisync Result Encounter [facility] External Department Unsolicited Jose Miguel Campuzano, DO [address] [place] [place] [phone] Social History Tobacco Use Types Packs/Day Years [...] PM EDT Narrative 01/13/2024 2:46 PM EDT [address] [address] Ultrasound Report Signed Patient: DOMENIC GODINEZ MR#: [id number] : 1995 Acct:[id number] Age/Sex: 28 / F ADM Date: 01/13/24 Loc: US Attending Dr: Jose Miguel Campuzano D.O. Ordering Physician: Jose Miguel Campuzano D.O. Date of Service: 01/13/24 Procedure(s): US OB umbilical artery Accession Number(s): [id number] cc: DUARTE VALDERRAMA ; Jose Miguel Campuzano D.O. [place] [phone] Patient Name: DOMENIC GODINEZ MRN: [id number] date: 1995 Sex: F Assigned Patient Location: US Current Patient Location: US Accession/Order Number: [id number] Exam Date: 01/13/2024 11:40 Report Date: 01/13/2024 [...] By: Josue Kebede M.D. Signed By: 01/13/24 144 DD/ 43 TD/TT: Low Pressure Boiler Tender: Procedure Note Radiology, Radiologist, MD - 01/13/2024 [place] [address] Ultrasound Report Signed Patient: DOMENIC GODINEZ JMR#: [id number] : 1995Acct:[id number] Age/Sex: 28 / FADM Date: 01/13/24 Loc: US Attending Dr: Jose Miguel Campuzano D.O. Ordering Physician: Jose Miguel Campuzano D.O. Date of Service: 01/13/24 Procedure(s): US OB umbilical artery Accession Number(s): [id number] cc: DUARTE VALDERRAMA ; Jose Miguel Campuzano D.O. The [place] [address] Patient Name: DOMENIC GODINEZ MRN: [id number] date: 1995 Sex: F Assigned Patient Location: US Current Patient Location: US Accession/Order Number: [id number] Exam Date: 01/13/2024 11:40 Report Date: 01/13/2024 [...] 14:44 Dictated By: Josue Kebede M.D. Signed By:01/13/24 1446 DD/ 43 TD/TT: Low Pressure Boiler Tender: us Jose Miguel Campuzano DO IMG XR PROCEDURES Final Result documented in this encounter Visit Diagnoses Not on filedocumented in this encounter Care Teams Costumed Character Entertainer Relationship Specialty Start Date End Date Hoy, Raudel M, MD [address] [facility] [place] [address] PCP - General Family Medicine 03/02/24 Jose Miguel Campuzano DO [address] [place] [address] Dr [place]ukumar [place] [address] PCP - [facility] 03/17/24 documented as of this encounter
--- OUTSIDE RECORDS SUMMARY | 2025-02-22 13:08 | XMS_ITS | Encounter Summary ---
Author Organization [facility] Address [address] [place] [address] Care Team Providers Care Websphere Commerce Developer Name Role Phone Raudel Osborne MD Primary Care Provider [phone] Jose Miguel Campuzano DO Unavailable Encounter Details Date Type Department Care Team (Late st Contact Info) Description 02/03/2024 Clinisync Result Encounter [facility] External Department Unsolicited Jose Miguel Campuzano, DO [address] [place] [address] Social History Tobacco Use Types Packs/Day Years [...] PM EDT Narrative 02/03/2024 4:29 PM EDT [address] [address] Ultrasound Report Signed Patient: DOMENIC GODINEZ MR#: [id number] : 1995 Acct:[id number] Age/Sex: 28 / F ADM Date: 02/03/24 Loc: US Attending Dr: Jose Miguel Campuzano D.O. Ordering Physician: Jose Miguel Campuzano D.O. Date of Service: 02/03/24 Procedure(s): US OB umbilical artery Accession Number(s): [id number] cc: DUARTE VALDERRAMA ; Jose Miguel Campuzano D.O. [place] [id number] Patient Name: DOMENIC GODINEZ MRN: [id number] date: 1995 Sex: F Assigned Patient Location: [facility] Current Patient Location: US Accession/Order Number: [id number] Exam Date: 02/03/2024 11:30 Report Date: 02/03/2024 [...] Signed By: 02/03/24 1629 DD/ 26 TD/TT: Unit Secy: Procedure Note Radiology, Radiologist, - 02/03/2024 [place] [address] Ultrasound Report Signed Patient: DOMENIC GODINEZ JMR#: [id number] : 1995Acct:[id number] Age/Sex: 28 / FADM Date: 02/03/24 Loc: US Attending Dr: Jose Miguel Campuzano D.O. Ordering Physician: Jose Miguel Campuzano D.O. Date of Service: 02/03/24 Procedure(s): US OB umbilical artery Accession Number(s): [id number] cc: DUARTE VALDERRAMA ; Jose Miguel Campuzano D.O. The [place] [address] Patient Name: DOMNEIC GODINEZ MRN: [id number] date: 1995 Sex: F Assigned Patient Location: [facility] Current Patient Location: US Accession/Order Number: [id number] Exam Date: 02/03/2024 11:30 Report Date: 02/03/2024 [...] 16:27 Dictated By: Kirk Oates M.D. Signed By:02/03/249 DD/ 26 TD/TT: Unit Secy: Jose Miguel Campuzano DO IMG XR PROCEDURES Final Result documented in this encounter Visit Diagnoses Not on filedocumented in this encounter Care Teams Websphere Commerce Developer Relationship Specialty Start Date End Date Raudel Osborne MD [address] [place] [address] PCP - General Family Medicine 03/02/24 Jose Miguel Campuzano DO [address] [place] [address] [place] [address] PCP - [facility] 03/17/24 documented as of this encounter
--- OUTSIDE RECORDS SUMMARY | 2025-02-22 13:08 | XMS_ITS | Encounter Summary ---
Author Organization [facility] Address [address] [place] [address] Care Team Providers Care Superintendent Custodian Janitor Name Role Phone Raudel Osborne MD Primary Care Provider [phone] Edward Campuzano DO Unavailable Encounter Details Date Type Department Care Team (Late st Contact Info) Description 02/06/2024 Abstract [facility] [address] [facility] [place] [address] Edward Campuzano DO [address] [facility] [address] Sukumar [place], [facility]11 Social History Tobacco Use Types [...] on filedocumented in this encounter Care Teams Superintendent Custodian Janitor Relationship Specialty Start Date End Date Raudel Osborne MD [address] [place] [address] PCP - General Family Medicine 03/02/24 Edward Campuzano DO [address] [place] [address] [place] [address] PCP - [facility] 03/17/24 documented as of this encounter
--- OUTSIDE RECORDS SUMMARY | 2025-02-22 13:08 | XMS_ITS | Encounter Summary ---
Author Organization [facility] Address [address] [place] [address] Care Team Providers Care Therapy Tech Name Role Phone Raudel Osobrne MD Primary Care Provider [phone] Jose Miguel Campuzano DO Unavailable Encounter Details Date Type Department Care Team (Late st Contact Info) Description 10/15/2023 Clinisync Result Encounter [facility] External Department Unsolicited Jose Miguel Campuzano, DO [address] [place] [phone] Social History Tobacco Use Types Packs/Day Years [...] AM EDT Narrative 10/15/2023 9:58 AM EDT [address] [address] Ultrasound Report Signed Patient: DOMENIC GODINEZ MR#: [id number] : 1995 Acct:[id number] Age/Sex: 28 / F ADM Date: 10/15/23 Loc: NOMS Attending Dr: Jose Miguel Campuzano D.O. Ordering Physician: Jose Miguel Campuzano D.O. Date of Service: 10/15/23 Procedure(s): US OB anatomy Accession Number(s): [id number] cc: DUARTE VALDERRAMA ; Jose Miguel Campuzano D.O. [place] [id number] Patient Name: DOMENIC GODINEZ MRN: [id number] date: 1995 Sex: F Assigned Patient Location: [facility] Current Patient Location: [facility] Accession/Order Number: [id number] Exam Date: 10/15/2023 08:32 Report Date: 10/15/2023 [...] Kirk Oates M.D. Signed By: 10/15/2358 DD/ 5 TD/TT: Estimating Manager: Procedure Note Radiology, Radiologist, MD - 10/15/2023 [place] [address] Ultrasound Report Signed Patient: DOMENIC GODINEZ R#: [id number] : 1995Acct:[id number] Age/Sex: FADM Date: 10/15/23 Loc: NOM[facility] Attending Dr: Jose Miguel Campuzano D.O. Ordering Physician: Jose Miguel Campuzano D.O. Date of Service: 10/15/23 Procedure(s): US OB anatomy Accession Number(s): [id number] cc: DUATRE VALDERRAMA ; Jose Miguel Campuzano D.O. The [place] [address] Patient Name: DOMENIC GODINEZ MRN: [id number] date: 1995 Sex: F Assigned Patient Location: [facility] Current Patient Location: [facility] Accession/Order Number: [id number] Exam Date: 10/15/2023 08:32 Report Date: 10/15/2023 [...] 09:56 Dictated By: Kirk Oates M.D. Signed By:10/15/23 0958 DD/ TD/TT: Estimating Manager: us Jose Miguel Campuzano DO [facility] Final Result documented in this encounter Visit Diagnoses Not on filedocumented in this encounter Care Teams Therapy Tech Relationship Specialty Start Date End Date Raudel Osborne MD [address] [place] [address] PCP - General Family Medicine 03/02/24 Jose Miguel Campuzano DO [address] [place] [address] [place] [address] PCP - [facility] 03/17/24 documented as of this encounter
--- OUTSIDE RECORDS SUMMARY | 2025-02-22 13:08 | XMS_ITS | Encounter Summary ---
Author Organization [facility] Address [address] [place] [address] Care Team Providers Care Regrinder Name Role Phone Raudel Osborne MD Primary Care Provider [phone] Jose Miguel Campuzano DO Unavailable Encounter Details Date Type Department Care Team (Late st Contact Info) Description 01/27/2024 Clinisync Result Encounter [facility] External Department Unsolicited Jose Miguel Campuzano, DO [address] Sukumar [place] [id number] Social History Tobacco Use Types Packs/Day Years [...] AM EDT Narrative 01/27/2024 11:46 [place] [address] Ultrasound Report Signed Patient: DOMENIC GODINEZ MR#: [id number] : 1995 Acct:[id number] Age/Sex: 28 / F ADM Date: 01/27/24 Loc: [facility] 252-[address]: Jose Miguel Campuzano D.O. Ordering Physician: Jose Miguel Campuzano D.O. Date of Service: 01/27/24 Procedure(s): US OB BPP w non-stress Accession Number(s): [id number] cc: DUARTE VALDERRAMA ; Jose Miguel Campuzano D.O. [place] [address] Patient Name: DOMENIC GODINEZ MRN: [id number] date: 1995 Sex: F Assigned Patient Location: [facility] Current Patient Location: [facility] Accession/Order Number: [id number] Exam Date: 01/27/2024 11:00 Report Date: 01/27/2024 [...] Signed By: 01/27/24 1146 DD/ 1143 TD/TT: Sap Bobj Developer: Procedure Note Radiology, Radiologist, - 01/27/2024 [place] [address] Ultrasound Report Signed Patient: DOMENIC GODINEZ JMR#: [id number] : 1995Acct:[id number] Age/Sex: 28 / FADM Date: 01/27/24 Loc: [facility] 252-[address]: Jose Miguel Campuzano D.O. Ordering Physician: Jose Miguel Campuzano D.O. Date of Service: 01/27/24 Procedure(s): US OB BPP w non-stress Accession Number(s): [id number] cc: DUARTE VALDERRAMA ; Jose Miguel Campuzano D.O. The [place] [address] Patient Name: DOMENIC GODINEZ MRN: [id number] date: 1995 Sex: F Assigned Patient Location: [facility] Current Patient Location: [facility] Accession/Order Number: [id number] Exam Date: 01/27/2024 11:00 Report Date: 01/27/2024 [...] Kirk Oates M.D. Signed By:01/27/24 1146 DD/ 42 TD/TT: Sap Bobj Developer: us Jose Miguel Campuzano DO [facility] Final Result documented in this encounter Visit Diagnoses Not on filedocumented in this encounter Care Teams Regrinder Relationship Specialty Start Date End Date Raudel Osborne MD [address] [place] [address] PCP - General Family Medicine 03/02/24 Jose Miguel Campuzano DO [address] [place] [address] [place] [address] PCP - [facility] 03/17/24 documented as of this encounter
--- OUTSIDE RECORDS SUMMARY | 2025-02-22 13:08 | XMS_ITS | Encounter Summary ---
Author Organization [facility] Address [address] [place] [address] Care Team Providers Care Manager Drilling Name Role Phone Raudel Osborne MD Primary Care Provider [phone] Jose Miguel Campuzano DO Unavailable Encounter Details Date Type Department Care Team (Late st Contact Info) Description 01/13/2024 Clinisync Result Encounter [facility] External Department Unsolicited Jose Miguel Campuzano, DO [address] Sukumar [place] [phone] Social History Tobacco Use Types Packs/Day Years [...] PM EDT Narrative 01/13/2024 12:02 [place] [address] Ultrasound Report Signed Patient: DOMENIC GODINEZ MR#: [id number] : 1995 Acct:[id number] Age/Sex: 28 / F ADM Date: 01/13/24 Loc: [facility] 250-[address]: Jose Miguel Campuzano D.O. Ordering Physician: Jose Miguel Campuzano D.O. Date of Service: 01/13/24 Procedure(s): US OB BPP w non-stress Accession Number(s): [id number] cc: DUARTE VALDERRAMA ; Jose Miguel Campuzano D.O. [place] [address] Patient Name: DOMENIC GODINEZ MRN: [id number] date: 1995 Sex: F Assigned Patient Location: [facility] Current Patient Location: [facility] Accession/Order Number: [id number] Exam Date: 01/13/2024 10:58 Report Date: 01/13/2024 [...] Signed By: 01/13/24 1202 DD/ 1200 TD/TT: [place]: Procedure Note Radiology, Radiologist, - 01/13/2024 [place] [address] Ultrasound Report Signed Patient: DOMENIC GODINEZ JMR#: [id number] : 1995Acct:[id number] Age/Sex: 28 / FADM Date: 01/13/24 Loc: [facility] 250-[address]: Jose Miguel Campuzano D.O. Ordering Physician: Jose Miguel Campuzano D.O. Date of Service: 01/13/24 Procedure(s): US OB BPP w non-stress Accession Number(s): [id number] cc: DUARTE VALDERRAMA ; Jose Miguel Campuzano D.O. The [place] [address] Patient Name: DOMENIC GODINEZ MRN: [id number] date: 1995 Sex: F Assigned Patient Location: [facility] Current Patient Location: [facility] Accession/Order Number: [id number] Exam Date: 01/13/2024 10:58 Report Date: 01/13/2024 [...] M.D. Signed By:01/13/24 1202 DD/ 1200 TD/TT: [place]: us Jose Miguel Campuzano DO [facility] Final Result documented in this encounter Visit Diagnoses Not on filedocumented in this encounter Care Teams Manager Drilling Relationship Specialty Start Date End Date Raudel Osborne MD [address] [place] [address] PCP - General Family Medicine 03/02/24 Jose Miguel Campuzano DO [address] [place] [address] [place] [address] PCP - [facility] 03/17/24 documented as of this encounter
--- OUTSIDE RECORDS SUMMARY | 2025-02-22 13:08 | XMS_ITS | Encounter Summary ---
Author Organization [facility] Address [address] [place] [address] Care Team Providers Care Construction Carpenter Name Role Phone Raudel Osborne MD Primary Care Provider [phone] Jose Miguel Campuzano DO Unavailable Encounter Details Date Type Department Care Team (Late st Contact Info) Description 08/20/2023 Clinisync Result Encounter [facility] External Department Unsolicited Jose Miguel Campuzano, DO [address] S[place]umar [place] [phone] Social History Tobacco Use Types Packs/Day Years [...] PM EST Narrative 08/20/2023 3:50 [place] [address] Ultrasound Report Signed Patient: DOMENIC GODINEZ MR#: [id number] : 1995 Acct:[id number] Age/Sex: 27 / F ADM Date: 08/20/23 Loc: [facility] Attending Dr: Jose Miguel Campuzano D.O. Ordering Physician: Jose Miguel Campuzano D.O. Date of Service: 08/20/23 Procedure(s): US OB cervical length Accession Number(s): [id number] cc: DUARTE VALDERRAMA ; Jose Miguel Campuzano D.O. The [place] [address] Patient Name: DOMENIC GODINEZ MRN: [id number] date: 1995 Sex: F Assigned Patient Location: [facility] Current Patient Location: [facility] Accession/Order Number: [id number] Exam Date: 08/20/2023 14:24 Report Date: 08/20/2023 [...] Oates M.D. Signed By: 08/20/23 1550 DD/ 1548 TD/TT: Teacher Citizenship: Procedure Note Radiology, Radiologist, MD - 08/20/2023 The [place] [id number] Ultrasound Report Signed Patient: DOMENIC GODINEZ JMR#: [id number] : 1995Acct:[id number] Age/Sex: 27 / FADM Date: 08/20/23 Loc: [facility] Attending Dr: Jose Miguel Campuzano D.O. Ordering Physician: Jose Miguel Campuzano D.O. Date of Service: 08/20/23 Procedure(s): US OB cervical length Accession Number(s): [id number] cc: DUARTE VALDERRAMA ; Jose Miguel Campuzano D.O. The [address] [address] Patient Name: DOMENIC GODINEZ MRN: [id number] date: 1995 Sex: F Assigned Patient Location: [facility] Current Patient Location: [facility] Accession/Order Number: [id number] Exam Date: 08/20/2023 14:24 Report Date: 08/20/2023 [...] Dictated By: Kirk Oates M.D. Signed By:08/20/23 1550 DD/ 1548 TD/TT: Teacher Citizenship: Jose Miguel Campuzano DO [facility] Final Result documented in this encounter Visit Diagnoses Not on filedocumented in this encounter Care Teams Construction Carpenter Relationship Specialty Start Date End Date Raudel Osborne MD [address] [place] [address] PCP - General Family Medicine 03/02/24 Jose Miguel Campuzano DO [address] [place] [address] [place] [address] PCP - [facility] 03/17/24 documented as of this encounter
--- OUTSIDE RECORDS SUMMARY | 2025-02-22 13:08 | XMS_ITS | Encounter Summary ---
Author Organization [facility] Address [address] [place] [address] Care Team Providers Care Immigration Services Officer Name Role Phone Raudel Osborne MD Primary Care Provider [phone] Edward Campuzano DO Unavailable Encounter Details Date Type Department Care Team (Late st Contact Info) Description 01/21/2024 Abstract [facility] [address] [facility] [place] [address] Edward Campuzano DO [address] [facility] [address] S[place], [facility] Social History Tobacco Use Types Packs/Day Years [...] on filedocumented in this encounter Care Teams Immigration Services Officer Relationship Specialty Start Date End Date Raudel Osborne MD [address] [place] [address] PCP - General Family Medicine 03/02/24 Edward Campuzano DO [address] [place] [address] [place] [address] PCP - [facility] 03/17/24 documented as of this encounter
--- OUTSIDE RECORDS SUMMARY | 2025-02-22 13:08 | XMS_ITS | Clinical Summary ---
Author Organization [facility] Address [address] [place] [address] Care Team Providers Care Financial Planning Advisor Name Role Phone Rebecca Garcia CNP Primary Care Provider [phone] Social History Tobacco Use Types Packs/Day Years [...] Smear 2017 COVID-19 Vaccine (2023-2 5 season) 2025 Influenza Vaccine (#1) 2025 Pneumococcal Vaccine: Ped or At-Risk Aged Out No longer eligible b ased on patient's age to complete this topic Insurance CONTRACT ALTERNATIVE PAYOR Care Teams Financial Planning Advisor Relationship Specialty Start Date End Date Rebecca Garcia CNP [address] [place] [address] PCP - General Nurse Practitioner 03/05/20
--- OUTSIDE RECORDS SUMMARY | 2025-02-22 13:09 | XMS_ITS | Clinical Summary ---
Author Organization [facility] Address [address] [place] [address] Care Team Providers Care Driver Medic Name Role Phone Raudel Osborne MD Primary Care Provider [phone] Edward Campuzano DO Unavailable Allergies Active Allergy Reactions Criticality Noted Date Comments Wound Dressing Adhesive Itching 01/17/2022 Medications valACYclovir (Valtrex) 500 MG tabletIndication s:H/O herpes genitalis TAKE 1 TABLET BY MOUTH EVERY DAY 90 tablet 1 02/24/2024 Active Active Problems Problem Noted Date Diagnosed Date UTI symptoms 08/19/2023 Vaginal discharge 08/19/2023 Encounter for scre ening for cervical length ([facility]) 08/19/2023 Hematuria 08/19/2023 Encounters Date Type Department Care Team Description 12/31/2024 9:30 AM EDT Office Visit [facility]AH [facility] [address] [facility] [place] [address] Betsy Goodwin PA Postoperative examination 12/31/2024 [place] [address] Betsy Goodwin PA 12/25/2024 [place] [address] Edward Campuzano DO 12/25/2024 Clinisync Result Encounter [facility] External Department Unsolicited Edward Campuzano DO 11/30/2024 10:50 AM EDT Consult [facility] [address] [place] [address] [place] [address] Edward Campuzano DO Pre-op examination; Pelvic pain; Dyspareunia in female from Last 3 Months Family History Medical [...] Reading Time Taken Comments Blood Pressure 100/60 12/31/2024 9:29 AM EDT Pulse 74 03/02/2024 10:24 AM EDT Temperature - - Respiratory Rate 12 03/02/2024 10:2 4 AM EDT Oxygen Saturation 99% 03/02/2024 10: 24 AM EDT Inhaled Oxygen Concentration - - Weight 81.1 kg (178 lb 12.8 oz) 12/31/2024 9:29 AM EDT Height 160 cm (5' 3 ) 03/02/2024 10:24 AM EDT Body Mass Index 31.67 03/02/2024 10:24 AM EDT Plan of Treatment Health Maintenance Due Date Last Done Comments Influenza Vaccine (#1) 2025 Procedures Procedure Name Priority Date/Time Associated Diagnosis Comments [facility] PREG QUANT HCG Routine 12/25/2024 7: 17 AM EDT ALL CBC WITH AUTO DIFF Routine 12/25/2024 7:17 AM EDT from Last 3 Months Results * [facility] PREG QUANT HCG (12/25/2024 7:17 AM EDT) [facility] HCG QUANTITATIVE <1 mIU/mL TBH Comment: 5-50 0.2-1 WEEK 50-500 1-2 WEEKS 100-5,000 2-3 WEEKS 500-10,000 3-4 WEEKS 1,000-50,000 4-5 WEEKS 10,000-100,000 5-6 WEEKS 15,000-200,000 6-8 WEEKS 10,000-100,000 2-3 MONTHS 12/25/2024 7:17 AM EDT 12/25/2024 7:18 AM EDT Narrative [facility] - 12/25/2024 7:51 AM EDT Edward Justen DO [facility] Final Result [facility] * (ABNORMAL) ALL CBC WITH AUTO DIFF (12/25/2024 7:17 AM EDT) [facility] TBH WBC 7.2 4.0 - 11.0 10 3/uL TBH TBH RBC 4.36 4.20 - 5.40 10 6/uL TBH TBH HGB 12.7 12.0 - 16.0 g/dL TBH TBH HCT 39.1 36.0 - 48.0 % TBH TBH MCV 89.7 81.0 - 99.0 fL TBH TBH MCH 29.1 26.7 - 34.0 pg TBH TBH MCHC 32.5 29.9 - 35.2 g/dL TBH TBH RDW 13.6 11.0 - 15.0 % TBH TBH PLT 283 150 - 450 10 3/uL TBH TBH MPV 9.4(L) 9.5 - 13.5 fL TBH NEUTROPHILS PERCENT AUTO 51.4 43.0 - 75.0 % TBH LYMPHOCYTES PERCENT AUTO 31.8 20.5 - 60.0 % TBH MONOCYTES PERCENT AUTO 10.1 1.7 - 12.0 % TBH TBH EO % 5.5 0.9 - 7.0 % TBH BASOPHILS PERCENT AUTO 0.8 0.2 - 2.0 % TBH IMMATURE GRANULOCYTES PCT AUTO 0.4 0.0 - 0.5 % TBH NEUTROPHILS ABSOLUTE AUTO 3.7 1.4 - 6.5 10 3/uL TBH LYMPHOCYTES ABSOLUTE AUTO 2.3 1.2 - 3.8 10 3/uL TBH MONOCYTES ABSOLUTE AUTO 0.7 0.3 - 0.8 10 3/uL TBH TBH EO # 0.4 0.0 - 0.7 10 3/uL TBH BASOPHILS ABSOLUTE AUTO 0.1 0.0 - 0.1 10 3/uL TBH IMMATURE GRANULOCYTES ABS AUTO 0.03 0.00 - 0.03 10 3/uL [facility]H 12/25/2024 7:17 AM EDT 12/25/2024 7:18 AM EDT Narrative [facility] - 12/25/2024 7:27 AM EDT us Edward Justen DO [facility] Final Result [facility] from Last 3 Months Insurance [employer] Care Teams Driver Medic Relationship Specialty Start Date End Date Raudel Osborne MD [address] [place] [address] PCP - General Family Medicine 03/02/24 Edward Campuzano DO [address] [place] [address] Dr Suk[address] [place] [phone] PCP - [facility] 03/17/24
--- OUTSIDE RECORDS SUMMARY | 2025-02-22 13:09 | XMS_ITS | Encounter Summary ---
Author Organization [facility] Address [address] [place] [address] Care Team Providers Care Employee Benefits Manager Name Role Phone Raudel Osborne MD Primary Care Provider [phone] Jose Miguel Campuzano DO Unavailable Encounter Details Date Type Department Care Team (Late st Contact Info) Description 01/06/2024 Clinisync Result Encounter [facility] External Department Unsolicited Jose Miguel Campuzano, DO [address] [place] [facility] Sukumar [place] [phone] Social History Tobacco Use Types Packs/Day Years [...] PM EDT Narrative 01/06/2024 12:48 PM EDT [place] [id number] Ultrasound Report Signed Patient: DOMENIC GODINEZ MR#: [id number] : 1995 Acct:[id number] Age/Sex: 28 / F ADM Date: 01/06/24 Loc: US Attending Dr: Jose Miguel Campuzano D.O. Ordering Physician: Jose Miguel Campuzano D.O. Date of Service: 01/06/24 Procedure(s): US OB BPP w non-stress Accession Number(s): [id number] cc: DUARTE VALDERRAMA ; Jose Miguel Campuzano D.O. [place] [address] Patient Name: DOMENIC GODINEZ MRN: [id number] date: 1995 Sex: F Assigned Patient Location: [facility] Current Patient Location: Accession/Order Number: [id number] Exam Date: 01/06/2024 11:06 Report Date: 01/06/2024 [...] Signed By: 01/06/24 1248 DD/ 1245 TD/TT: Automotive Parts Salesperson: Procedure Note Radiology, Radiologist, - 01/06/2024 [place] [address] Ultrasound Report Signed Patient: DOMENIC GODINEZ JMR#: [id number] : 1995Acct:[id number] Age/Sex: 28 / FADM Date: 01/06/24 Loc: US Attending Dr: Jose Miguel Campuzano D.O. Ordering Physician: Jose Miguel Campuzano D.O. Date of Service: 01/06/24 Procedure(s): US OB BPP w non-stress Accession Number(s): [id number] cc: DUARTE VALDERRAMA ; Jose Miguel Campuzano D.O. The [place] [address] Patient Name: DOMENIC GODINEZ MRN: [id number] date: 1995 Sex: F Assigned Patient Location: [facility] Current Patient Location: Accession/Order Number: [id number] Exam Date: 01/06/2024 11:06 Report Date: 01/06/2024 [...] M.D. Signed By:01/06/24 1248 DD/ 1245 TD/TT: Automotive Parts Salesperson: us Jose Miguel Campuzano DO [facility] Final Result documented in this encounter Visit Diagnoses Not on filedocumented in this encounter Care Teams Employee Benefits Manager Relationship Specialty Start Date End Date Raudel Osborne MD [address] [place] [address] PCP - General Family Medicine 03/02/24 Jose Miguel Campuzano DO [address] [place] [address] [place] [address] PCP - [facility] 03/17/24 documented as of this encounter
--- OUTSIDE RECORDS SUMMARY | 2025-02-22 13:09 | XMS_ITS | Encounter Summary ---
Author Organization [facility] Address [address] [place] [address] Care Team Providers Care Records Management Assistant Name Role Phone Raudel Osborne MD Primary Care Provider [phone] Jose Miguel Campuzano DO Unavailable Encounter Details Date Type Department Care Team (Late st Contact Info) Description 12/30/2023 Clinisync Result Encounter [facility] External Department Unsolicited Jose Miguel Campuzano, DO [address] [place] [phone] Social History Tobacco Use Types Packs/Day Years [...] EDT Narrative 12/30/2023 1:19 PM EDT [address] [address] Ultrasound Report Signed Patient: DOMENIC GODINEZ MR#: [id number] : 1995 Acct:[id number] Age/Sex: 28 / F ADM Date: 12/30/23 Loc: US Attending Dr: Jose Miguel Campuzano D.O. Ordering Physician: Jose Miguel Campuzano D.O. Date of Service: 12/30/23 Procedure(s): US OB umbilical artery Accession Number(s): [id number] cc: DUARTE VALDERRAMA ; Jose Miguel Campuzano D.O. [address] [id number] Patient Name: DOMENIC GODINEZ MRN: [id number] date: 1995 Sex: F Assigned Patient Location: [facility] Current Patient Location: US Accession/Order Number: [id number] Exam Date: 12/30/2023 12:15 Report Date: 12/30/2023 [...] By: Kirk Oates M.D. Signed By: 12/30/23 1319 DD/ 1317 TD/TT: Closing Manager: Procedure Note Radiology, Radiologist, - 12/30/2023 [place] [address] Ultrasound Report Signed Patient: DOMENIC GODINEZ JMR#: [id number] : 1995Acct:[id number] Age/Sex: 28 / FADM Date: 12/30/23 Loc: US Attending Dr: Jose Miguel Campuzano D.O. Ordering Physician: Jose Miguel Campuzano D.O. Date of Service: 12/30/23 Procedure(s): US OB umbilical artery Accession Number(s): [id number] cc: DUARTE VALDERRAMA ; Jose Miguel Campuzano D.O. The [place] [address] Patient Name: DOMENIC GODINEZ MRN: [id number] date: 1995 Sex: F Assigned Patient Location: [facility] Current Patient Location: US Accession/Order Number: [id number] Exam Date: 12/30/2023 12:15 Report Date: 12/30/2023 [...] Kirk Oates M.D. Signed By:12/30/23 1319 DD/ 1317 TD/TT: Closing Manager: Jose Miguel Campuzano DO IMG XR PROCEDURES Final Result documented in this encounter Visit Diagnoses Not on filedocumented in this encounter Care Teams Records Management Assistant Relationship Specialty Start Date End Date Raudel Osborne MD [address] [place] [address] PCP - General Family Medicine 03/02/24 Jose Miguel Campuzano DO [address] [place] [address] [place] [address] PCP - [facility] 03/17/24 documented as of this encounter
--- OUTSIDE RECORDS SUMMARY | 2025-02-22 13:09 | XMS_ITS | Patient Health Record ---
Author Organization [facility] Address [address] [place] [address] Care Team Providers Care Intelligence Research Specialist Name Role Phone Kylie Crum Primary Care Provider [phone] Juliet Wilkins Unavailable [phone] Reason For Referral No Information Medications Medication SIG (Take, Route, Fr equency, Duration) Notes Start Date End Date Status Venlafaxine HCl Acti ve Valacyclovir HCl Act mitch Plan Of Treatment No Information Insurance Providers Payer Name Payer Address Payer Phone Subscriber Number Group Number Insured Name Patient Relationship to Insured Coverage Start Date Coverage End Date z[employer] CE-termed 22 [address] [place] [address] [id number] SANDY GODINEZ Self - patient is the insured 2 3 [employer] [place] [address] [place] [address] [phone] [id number] SANDY GODINEZ Self - patient is the insured 3 Wrap [employer]ourc e [address] [place] [address] [phone] [id number] HERBERT FRANCIAJESE Self - patient is the insured 3 zMEDICAID CFC after [employer] E-termed [address] [place] [address] [id number] SANDY GODINEZ Self - patient is the insured 2 3 zDENTAL DQ [employer] E-termed 22 [address] [place] [address] [id number] SANDY GODINEZ Self - patient is the insured 2 3 zDental MEDICAID CFC after [employer] E-termed 22 [address] [place] [address] [id number] HERBERT SANDY Self - patient is the insured 2 3 Dental Care[employer]our[employer] [place] [address] [place] [address] [id number] HERBERT SANDY Self - patient is the insured 3 Dental Wrap [employer] Care[employer]our[employer] e [address] [place] [address] [id number] HERBERT SANDY Self - patient is the insured 3
--- OUTSIDE RECORDS SUMMARY | 2025-02-22 13:09 | XMS_ITS | Encounter Summary ---
Author Organization [facility] Address [address] [place] [address] Care Team Providers Care Behavior Management Specialist Name Role Phone Raudel Osborne MD Primary Care Provider [phone] Edward Campuzano DO Unavailable Encounter Details Date Type Department Care Team (Late st Contact Info) Description 11/02/2024 Orders Only [facility] [address] [facility] [place] [address] Brianna Roldan LPN [address] [place] [phone] Social History Tobacco Use Types Packs/Day Years [...] EDT) Swab Cervical swab / Unknown us Edward Campuzano DO LAB CYTOLOGY ORDERABLES Final Re sult EXTERNAL LAB documented in this encounter Visit Diagnoses Not on filedocumented in this encounter Care Teams Behavior Management Specialist Relationship Specialty Start Date End Date Raudel Osborne MD [address] [place] [address] PCP - General Family Medicine 03/02/24 Edward Campuzano DO [address] [place] [address] [place] [address] PCP - [facility] 03/17/24 documented as of this encounter
--- OUTSIDE RECORDS SUMMARY | 2025-02-22 13:09 | XMS_ITS | Encounter Summary ---
Author Organization [facility] Address [address] [place] [address] Care Team Providers Care Silo Filler Name Role Phone Raudel Osborne MD Primary Care Provider [phone] Edward Campuzano DO Unavailable Encounter Details Date Type Department Care Team (Late st Contact Info) Description 01/06/2024 Clinisync Result Encounter [facility] External Department Unsolicited Edward Campuzano, DO [address] [facility] [place] [address] Social History Tobacco Use Types Packs/Day Years [...] Encounter Note - Brianna Roldan LPN - 01/06/2024 1:00 PM EDT [...] PM EDT Narrative 01/06/2024 12:59 [place] [address] Ultrasound Report Signed Patient: SANDY GODINEZ MR#: [id number] : 1995 Acct:[id number] Age/Sex: 28 / F ADM Date: 01/06/24 Loc: US Attending Dr: Edward Campuzano D.O. Ordering Physician: Edward Campuzano D.O. Date of Service: 01/06/24 Procedure(s): US OB umbilical artery Accession Number(s): [id number] cc: DUARTE VALDERRAMA ; Edward Campuzano D.O. [place] [address] Patient Name: SANDY GODINEZ MRN: [id number] date: 1995 Sex: F Assigned Patient Location: [facility] Current Patient Location: Accession/Order Number: [id number] Exam Date: 01/06/2024 11:41 Report Date: 01/06/2024 12:56 At the request of: EDWARD CAMPUZANO Procedure: US OB umbilical artery EXAMINATION: [...] Signed By: 01/06/24 1259 DD/ 1256 TD/TT: Video Game Tester: Procedure Note Radiology, Radiologist, MD - 01/06/2024 [place] [address] Ultrasound Report Signed Patient: SANDY GODINEZ R#: [id number] : 1995Acct:[id number] Age/Sex: 28 / FADM Date: 01/06/24 Loc: US Attending Dr: Edward Campuzano D.O. Ordering Physician: Edward Campuzano D.O. Date of Service: 01/06/24 Procedure(s): US OB umbilical artery Accession Number(s): [id number] cc: DUARTE VALDERRAMA ; Edward Campuzano D.O. The [place] [id number] Patient Name: SANDY GODINEZ MRN: [id number] date: 1995 Sex: F Assigned Patient Location: [facility] Current Patient Location: US Accession/Order Number: [id number] Exam Date: 01/06/2024 11:41 Report Date: 01/06/2024 12:56 At the request of: EDWARD CAMPUZANO Procedure: US OB umbilical artery EXAMINATION: [...] M.D. Signed By:01/06/24 1259 DD/ 1256 TD/TT: Video Game Tester: Edward Campuzano DO IMG XR PROCEDURES Final Result documented in this encounter Visit Diagnoses Not on filedocumented in this encounter Care Teams Silo Filler Relationship Specialty Start Date End Date Raudel Osborne MD [address] [place] [address] PCP - General Family Medicine 03/02/24 Edward Campuzano DO [address] [place] [address] [address] [place] [place] [address] PCP - [facility] 03/17/24 documented as of this encounter
--- OUTSIDE RECORDS SUMMARY | 2025-02-22 13:09 | XMS_ITS | Patient Health Record ---
Author Organization [facility] Address [address] [place] [address] Care Team Providers Care Compensation Analyst Name Role Phone Noemi Jiang Primary Care Provider Melida Powers Unavailable [phone] Allergies No Known Allergies Reason For Referral No Information Social History Tobacco Use: Social History Observation [...] Problem Status W/U Status Risk Notes Problem 621689771 Fibromyalgia (M79.7) Active confirmed Problem 95719996 Neck pain (M54.2) Active confirmed Encounters Encounter Location Date Provider Diagnosis [facility] [address] [place] [id number] 12/01/2024 Melida Davidson Low back pain, unspecified back pain [...] Date Medicaid [employer] [place] [address] [place] [address] [id number] SANDY GODINEZ Self - patient is the insured 5 Medical (General) History Medical History History ICD Code Liver Disease Gastric Reflux Rheumatoid arthritis Ovarian Cysts Anxiety Depression Surgical History Surgery Date(Month/Year) [place] teeth extraction 2015 Tonsillectomy/Adenoidectomy 2014 Cholecystectomy (gallbladder removal) 2023 D and C 2017
--- OUTSIDE RECORDS SUMMARY | 2025-02-22 13:09 | XMS_ITS | Clinical Summary ---
Author Organization [facility] Address [address] [place] [address] Care Team Providers Care Certified Family Mediator Name Role Phone Rebecca Garcia DEPUTY ASSESSOR Primary Care Provider [phone] Allergies No known active allergies Medications VITAMIN [...] N ot on file 05/25/2020 Data from: https://[email or web address].med[email or web address]/. Last address used for calculation Not on [...] 3-dose series) 08/30 Cervical Cancer Screening 2017 HPV Vaccine (1 - 3-dose SCDM series) 08/31/2023 Influenza Vaccine (#1) 2025 Hepatitis C Screening Completed 02/24/2015 Procedures Procedure Name Priority Date/Time Associated Diagnosis Comments HEP REMOTE PANEL BL Routine 02/24/2015 1 :55 PM EDT Spine pain from Last 3 Months or Most Recently Relevant to Health Maintenance Results * HEP REMOTE PANEL BL (02/24/2015 1:55 PM EDT) Hep B Core Ab, Total Negative Negative 02/24/2015 10:14 PM EDT [facility] Hep C Antibody IA Negative Negative 02/24/2015 10:15 PM EDT [facility] HBsAg Negative Negative 02/24/2015 10:15 PM EDT [facility] Hep B Surface Ab, Qual Negative Negative 02/24/2015 10:15 PM EDT [facility] Comment:NEGATIVE Blood specimen (specimen) BLOOD SPECIMEN / Unknown 02/24/2015 1:55 PM EDT 02/24/2015 1:57 PM EDT us Chanel Root HEALTH EDUCATION AIDE.DEPUTY ASSESSOR LABORATORY Final Re sult [facility] [address] [place] [address] from Last 3 Months or Most Recently Relevant to Health Maintenance Insurance [facility] MEDICAID Care Teams Certified Family Mediator Relationship Specialty Start Date End Date Rebecca Garcia CNP PCP - General Family Medicine 09/16/14
--- OUTSIDE RECORDS SUMMARY | 2025-02-22 13:09 | XMS_ITS | Encounter Summary ---
Author Organization [facility] Address [address] [place] [address] Care Team Providers Care Lighthouse Keeper Name Role Phone Raudel Osborne MD Primary Care Provider [phone] Jose Miguel Campuzano DO Unavailable Encounter Details Date Type Department Care Team (Late st Contact Info) Description 12/30/2023 Clinisync Result Encounter [facility] External Department Unsolicited Jose Miguel Campuzano, DO [address] [place] [id number] Social History Tobacco Use Types Packs/Day Years [...] PM EDT Narrative 12/31/2023 11:52 [place] [address] Ultrasound Report Signed Patient: DOMENIC GODINEZ MR#: [id number] : 1995 Acct:[id number] Age/Sex: 28 / F ADM Date: 12/30/23 Loc: US Attending Dr: Jose Miguel Campuzano D.O. Ordering Physician: Jose Miguel Campuzano D.O. Date of Service: 12/30/23 Procedure(s): US OB BPP w non-stress Accession Number(s): [id number] cc: DUARTE VALDERRAMA ; Jose Miguel Campuzano D.O. [place] [address] Patient Name: DOMENIC GODINEZ MRN: [id number] date: 1995 Sex: F Assigned Patient Location: US Current Patient Location: US Accession/Order Number: [id number] Exam Date: 12/30/2023 10:52 Report Date: 12/30/2023 [...] Signed By: 12/31/23 1152 DD/ 1239 TD/TT: Facility Maintenance Helper: Procedure Note Radiology, Radiologist, - 12/31/2023 [place] [address] Ultrasound Report Signed Patient: DOMENIC GODINEZ JMR#: [id number] : 1995Acct:[id number] Age/Sex: 28 / FADM Date: 12/30/23 Loc: US Attending Dr: Jose Miguel Campuzano D.O. Ordering Physician: Jose Miguel Campuzano D.O. Date of Service: 12/30/23 Procedure(s): US OB BPP w non-stress Accession Number(s): [id number] cc: DUARTE VALDERRAMA ; Jose Miguel Campuzano D.O. The [place] [address] Patient Name: DOMENIC GODINEZ MRN: [id number] date: 1995 Sex: F Assigned Patient Location: US Current Patient Location: US Accession/Order Number: [id number] Exam Date: 12/30/2023 10:52 Report Date: 12/30/2023 [...] M.D. Signed By:12/31/23 1152 DD/ 1239 TD/TT: Facility Maintenance Helper: us Jose Miguel Campuzano DO [facility] Final Result documented in this encounter Visit Diagnoses Not on filedocumented in this encounter Care Teams Lighthouse Keeper Relationship Specialty Start Date End Date Raudel Osborne MD [address] [facility] [place] [address] PCP - General Family Medicine 03/02/24 Jose Miguel Campuzano DO [address] [place] [address] [place] [address] PCP - [facility] 03/17/24 documented as of this encounter
[2025-02-22 13:58] LABS: Alanine Aminotransferase 108 U/L (14-59); Albumin Globulin Ratio 1.1; Albumin Level 3.9 g/dL (3.4-5.0); Alkaline Phosphatase 142 U/L (46-116); Anion Gap 15.5; Aspartate Amino Transferase 48 U/L (15-37); Blood Urea Nitrogen 7.0 mg/dL (7.0-18.0); Calcium 9.0 mg/dL (8.5-10.1); Carbon Dioxide 27.4 mmol/L (21.0-32.0); Chloride 105 mmol/L (98-107); Estimated GFR (African America >60 (>=60 mL/min/1.73m^2); Estimated GFR (Non-African Ame >60 (>=60 mL/min/1.73m^2); Free T3 2.40 pg/mL (2.18-3.98); Globulin 3.5 g/dL; Glucose 104 mg/dL (74-106); Potassium 3.9 mmol/L (3.5-5.1); Sodium 144 mmol/L (136-145); Thyroid Stimulating Hormone 1.619 uIU/mL (0.358-3.740); Total Protein 7.4 g/dL (6.4-8.2)
[2025-02-22 14:00] LABS: Iron 66.0 ug/dL (50.0-170.0)
[2025-02-22 14:09] LABS: Hematocrit 39.8 % (36.0-48.0); Hemoglobin 12.9 g/dL (12.0-16.0); Immature Granulocytes Abs Auto 0.01 10^3/uL (0.00-0.03); Immature Granulocytes Pct Auto 0.2 % (0.0-0.5); Lymphocytes Absolute Auto 2.3 10^3/uL (1.2-3.8); Mean Corpuscular HGB Conc 32.4 g/dL (29.9-35.2); Mean Corpuscular Hemoglobin 29.1 pg (26.7-34.0); Mean Corpuscular Volume 89.6 fL (81.0-99.0); Platelet Count 308 10^3/uL (150-450); Red Blood Count 4.44 10^6/uL (4.20-5.40); White Blood Count 6.5 10^3/uL (4.0-11.0)
[2025-02-22 14:16] LABS: INR 1.01; Partial Thromboplastin Time 27.9 sec (22.3-36.2); Prothrombin Time 10.7 sec (9.0-11.6)
== END 2025-02-22 13:04 | disposition home or self-care (01) ==
PROVIDERS: PCP Nurse Practitioner Family; Visit Provider Nurse Practitioner Family
DX: R53.83 Other fatigue (principal)
CPT/HCPCS: 36415; 80053; 82306; 83540; 84436; 84443; 84481; 85025; 85610; 85730

== ENCOUNTER 2025-03-05 08:37 | Outpatient (OUT) | payer OTHER, SELFPAY ==
--- OUTSIDE RECORDS SUMMARY | 2025-03-05 08:43 | XMS_ITS | CCD ---
Author Organization [facility] Informat ion Partnership [facility] Care Team Providers Care Brass Roller Name Role Phone Rebecca Lange Primary Care Provider VIBHA JOHNSON Attending Unavailable VIBHA JOHNSON Referring Unavailable REBECCA LANGE Primary Care Unavailable Kelli Oliver Primary Care Physician [phone] MISC, DR LORENZANA Primary Care Unavailable MANOJ CUNNINGHAM Consulting Unavailable MANOJ CUNNINGHAM Admitting Unavailable MANOJ CUNNINGHAM Attending Unavailable ILIR MARSHALL Consulting Unavailable JUSTEN, DR GILLESPIE Attending Unavailable JUSTEN, DR GILLESPIE Admitting Unavailable KARCRISTIK, DR MIMS Consulting Unavailable REQUEST, NONE LISTED [...] Unavailable REQUEST, NONE LISTED Primary Care Unavaila Pilar Ferreira Consulting Unavailable JUSTEN, DR GILLESPIE Consulting [...] DR LORENZANA Primary Care Unavailable JUSTEN, DR GLILESPIE Consulting Unavailable JUSTEN, DR GILLESPIE Admitting Unavailable JUSTEN, DR GILLESPIE Attending Unavailable MISC, DR LORENZANA Primary Care Unavailable JUSTEN, DR GILLESPIE Consulting Unavailable JUSTEN, DR GILLESPIE Attending Unavailable JUSTEN, DR GILLSEPIE Admitting Unavailable KARASIK, DR MIMS Attending Unavailable [...] JUSTEN, DR GILLESPIE Attending Unavailable ZIEBER, DR ADVID Sanchez Consulting Unavailable JUSTEN, DR GILLESPIE Consulting [...] GILLESPIE Consulting Unavailable Unavailable Primary Care Provider Unavailjina e EDWARD CAMPUZANO R Referring Unavailable MITUL RDZ Attending Unavailable EDWARD CAMPUZANO Referring Unavailable DO Janie Theodore Attending Provider Raudel Osborne MD Primary Care Provider [phone] MD Igor Becerra Attending Provider Edward Campuzano DO Unavailable Raudel Osborne Primary Care Physician Unavailable Primary Care Provider UnavailRaudel Ann MD Primary Care Provider [phone] Ilir Marshall MD Attending Provider Raudel Osborne MD Primary Care Provider [phone] FELIPA JEFFERS Attending Unavailab FELIPA Alatorre Attending Unavailab EDWARD Fishman Attending Unavailable ROCIO, BETSY Attending Unavailable JUSTEN, EDWARD Attending Unavailable JUSTEN, EDWARD Attending Unavailable JUSTEN, EDWARD Attending Unavailable ROCIO, BETSY Attending Unavailable ROCIO, BETSY Attending Unavailable JUSTEN, EDWARD Attending Unavailable JUSTEN, EDWARD Attending Unavailable JUSTEN, EDWARD Attending Unavailable JANIE THEODORE Attending Unavailable ROCIO, BETSY Attending Unavailable JUSTEN, EDWARD Attending Unavailable ROCIO, BETSY Attending Unavailable Janie Theodore Admitting Unavailable Janie Theodore Attending Unavailable Ilir Marshall Admitting Unavailable Ilir Marshall Attending Unavailable Igor Becerra Admitting Unavailable Igor Becerra Attending Unavailable Royer Simmons Admitting Unavailab oRyer Watts Attending Unavailab le [facility] Dept, Yasir Guillen Primary Care Unavailable Allergies Allergy Classification Reported Allergen(s) Allergy Type Date of Onset Reaction(s) Facility (1 source) Desonide Drug Allergy 9 [facility] Repository (20 sources) Wound Dressing Adhesive Drug [...] needed for nausea or vomiting. Active PNV no.203-YZ-cf8-dha-epa-fi sh 400 mcg-35 mg- 25 mg-5 mg tablet,chewable (3 sources) Start: 11-07-2023 PNV no.145-GD-bi4-eso-vmd-zjqh 400 mcg-35 mg- 25 mg-5 mg tablet,chewable Indications: 24 weeks gestation of , Single umbilical artery Take 2 gummies daily during the 60 tablet 6 11/07/2023 Active Jqj508-Bsosqay Fumarate-Fa () 28-800 mg-mcg Tablet (3 sources) Start: 06-10-2017 take 1 tablet by mouth once daily Gxj086-Fdpggwr Fumarate-Fa () 28-800 mg-mcg Tablet Active 1 [...] with vomiting, unspecified] Onset: 10-24-2021 Episodic Other aftercare (2 sources) Surgical follow-up; 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: [Encounter for follow-up examination after completed treatment for conditions other than malignant neoplasm] 12-31-2024 Episodic Other complications of ; puerperium affecting [...] 02-15-2022 Episodic Other aftercare (1 source) Other meterman (current) 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; 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: [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] Onset: 02-05-2022 Episodic [...] AUTO DIFFon BASOPHILS ABSOLUTE AUTO 0.1 N [facility] Basophils/100 WBC (Bld) 0.8 % 0.2 - 2.0 % [facility] Healthcare Eosinophils/100 WBC (Bld) 5.5 % 0.9 - 7.0 % [facility] Erythrocyte distribution width (RBC) [Ratio] 13.6 % 11.0 - 15.0 % [facility] Hematocrit (Bld) [Volume fraction] 39.1 % 36.0 - 48.0 % [facility] Hemoglobin (Bld) [Mass/Vol] 12.7 g/dL 12.0 - 16.0 g/dL [facility] IMMATURE GRANULOCYTES ABS AUTO 0.03 [facility] Immature granulocytes/100 WBC (Bld) 0.4 % 0.0 - 0.5 % [facility] Interpretation and review of laboratory results Abnormal [facility] LYMPHOCYTES ABSOLUTE AUTO 2.3 [facility] Lymphocytes/100 WBC (Bld) 31.8 % 20.5 - 60.0 % [facility] MCH (RBC) [Entitic mass] 29.1 pg 26.7 - 34.0 pg [facility] MCHC (RBC) [Mass/Vol] 32.5 g/dL 29.9 - 35.2 g/dL [facility] MCV (RBC) [Entitic vol] 89.7 fL 81.0 - 99.0 fL [facility] MONOCYTES ABSOLUTE AUTO 0.7 N [facility] Monocytes/100 WBC (Bld) 10.1 % 1.7 - 12.0 % [facility] NEUTROPHILS ABSOLUTE AUTO 3.7 [facility] Neutrophils/100 WBC (Bld) 51.4 % 43.0 - 75.0 % [facility] Platelet mean volume (Bld) [Entitic vol] 9.4 fL Low 9.5 - 13.5 fL [facility]H EO # 0.4 [facility] PLT 283 [facility] RBC 4.36 [facility] WBC 7.2 [facility] Ambulatory Visit Summaryon 0 - Ambulatory Visit Summary Ambulatory Visit Summary HERBERT KARENJESE Barry :1995 Visit Date:12/15/2024 Ambulatory Visit Instructions Your [...] signed up for this yet, please contact [employer] at [phone] to get signed up today. Language Information Language assistance services are available as needed. 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 [1] TODAY: 11/15/24 - [place] [facility] for back pain. Bactrim x 7d. [...] day. I advised this is normal. Seeing LAMINATION ASSEMBLER for chronic pelvic pain (does not change w abx). Having ex lap next week. Pt verbalizes no distinct complaints. I see no indication for additional imaging/eval/tx at this time. F/u PRN. Ordered: Body Mass Index (BMI) documented 3008F Current tobacco non-user 1036F Depression Screening Negative 3352F E&M of Est. Patient Low 20-29 Min 76752 Influenza immunization status assessed 1030F Medication list documented in medical record 1159F Most recent diastolic blood pressure <80 mm Hg 3078F Review of all meds by a prescribing practitioner or clinical pharmacist documented in EHR 1160F Systolic BP <130 mm Hg (Most Recent) 3074F Urnls Dip Stick Auto w/o Microscopy POC 25557 Follow-up With When Contact Information [facility] Additional Instructions: Only if needed/new problems arise. [...] 09/02/1997 Recorde (more content not included)... Normal [facility] Comment on above: Result Comment: Elec tronically Signed By: LEYDI JEFFERS PA-C\.br\Date and Time Signed: 12/15/24 10:47 EDT Urine Cultureon 11-15-2024 Bacteria identified Cx Nom (U) <9,000 colonies/ml mixed bacterial skin contaminants 2 Days PERFORMED BY: [place] [address] PATHOLOGIST DIESEL TRUCK DRIVER LEXII POWELL M.D. Normal [facility] Comment on above: Performed By: #### C UU #### [address] IGP,APTIMA HPV,AGE GDLNon AGE GDLN ACOG TESTING Note . [facility] Comment on above: TESTS RESULT FLAG UN ITS REF RANGE LAB Clinician Provided Cytology Information Source.............Cervix;Endocervix No. of containers..01 ThinPrep Vial Age Yenifer HOLDER Ela... FLAG LEGEND: L-Low Normal,H-High Normal,LL-Alert Low,HH-Alert High <-Panic Low,>-Panic High,A-Abnormal,AA-Critical Abnormal Performed at: 01 =[address] [facility] [place] [address] Katherine Thomason MD, IGP, RFX APTIMA HPV ASCU Note . [facility] Comment on above: TESTS RESULT FLAG UN ITS REF RANGE LAB DIAGNOSIS: 02 NEGATIVE FOR INTRAEPITHELIAL LESION OR MALIGNANCY. Specimen adequacy: 02 Satisfactory for evaluation. Endocervical and/or squamous metaplastic cells (endocervical component) are present. Performed by: Briana Murillo, Rehab Care Assistant ([facility]) . 02 Note: Note 02 [...] <-Panic Low,>-Panic High,A-Abnormal,AA-Critical Abnormal Performed at: [address] [address] Katherine Thomason MD, Performed at: =[address] [id number] Salon Professional: Katherine Thomason MD, Phone: [phone] Performed at: [address] [id number] Salon Professional: Katherine Thomason MD, Phone: [phone] BRUSH-SPATULA CERVIX ENDOCERVIX [facility] HCG ( test) Ql (U)o n 10-19-2024 Interpretation and review of laboratory results Normal [facility] Preg Test, Ur Negative Negative [facility] Urinalysis macro (dipstick) panel (U)on 10-19-2024 Bilirubin, UA Negative Negative - 4(70) +++ mg/dL [facility] Blood, UA Positive Negative - 50 Anselmo/mcL [facility] Comment on above: small Clarity, UA Clear [facility] Color, UA Yellow [facility] Glucose, UA Negative Negative - 2000(110) ++++ mg/dL [facility] Interpretation and review of laboratory results Abnormal [facility] Ketones, UA Negative Negative - 160(16) ++++ mg/dL [facility] Leukocytes, UA Trace Negative - 500+++ Monik/mcL [facility] Nitrite, UA Negative Negative - Positive [facility] pH, UA 7 5 - 9 [facility] Protein, UA Negative Negative - 2000(20) ++++ mg/dL [facility] Spec Grav, UA 1.025 1 - 1.03 [facility] Urobilinogen, UA 0.2 0.2 - 12 mg/dL [facility] RECURRENT VAGINITIS (HTRX)on 09-16-2024 ATOPOBIUM VAGINAE 0 [facility] ATOPOBIUM VAGINAE Not detected [facility] BVAB 2,3 (BACTERIAL VAGINOSIS ASSOCIATED BACTERIA 2, 3); MOBILUNCUS SPP 0 [facility] BVAB 2,3 (BACTERIAL VAGINOSIS ASSOCIATED BACTERIA 2, 3); MOBILUNCUS SPP Not detected [facility] SHANNON ALBICANS, PARAPSILOSIS, TROPICALIS 0 [facility] SHANNON ALBICANS, PARAPSILOSIS, TROPICALIS Not detected [facility] SHANNON GLABRATA 0 [facility] SHANNON GLABRATA Not detected [facility] SHANNON KRUSEI 0 [facility] SHANNON KRUSEI Not detected [facility] CHLAMYDIA TRACHOMATIS 0 [facility] CHLAMYDIA TRACHOMATIS Not detected [facility] GARDNERELLA VAGINALIS 0 [facility] GARDNERELLA VAGINALIS Not detected [facility] MEGASPHAERA (TYPES 1, 2) 0 [facility] MEGASPHAERA (TYPES 1, 2) Not detected [facility] MYCOPLASMA GENITALIUM 0 [facility] MYCOPLASMA GENITALIUM Not detected [facility] NEISSERIA GONORRHOEAE 0 [facility] NEISSERIA GONORRHOEAE Not detected [facility] TRICHOMONAS VAGINALIS 0 [facility] TRICHOMONAS VAGINALIS Not detected N [facility] HCG ( test) Ql (U)o n 09-15-2024 Interpretation and review of laboratory results Normal [facility] Preg Test, Ur Negative Negative [facility] US PELVIS TRANSVAGINALon [address] [address] Ultrasound Report Signed Patient: MICHELLE GODINEZ MR#: [id number] : 1995 Acct:[id number] Age/Sex: 29 / F ADM Date: 09/15/24 Loc: US Attending Dr: Edward Campuzano D.O. Ordering Physician: Edward Campuzano D.O. Date of Service: 09/15/24 Procedure(s): US pelvis transvaginal Accession Number(s): [id number] cc: DUARTE VALDERRAMA ; Edward Campuzano D.O. The [place] [id number] Patient Name: MICHELLE GODINEZ MRN: [facility]:[id number] date: 1995 Sex: F Assigned Patient Location: US Current Patient Location: US Accession/Order Number: [id number] Exam Date: 09/15/2024 13:45 Report Date: 09/15/2024 [...] Vinicio Loyd M.D.09/15/2024 1:47 PM Dictation Location: [place] [address] Electronically authenticated by: [id number] Y Date: 09/15/2024 13:47 Dictated By: Vinicio Loyd D.O. Signed By: 09/15/24 1352 DD/ 1347 TD/TT: Airport Operations Officer: [facility] Radiology, Radiologist, MD - 09/15/[address] [address] Ultrasound Report Signed Patient: MICHELLE GODINEZ MR#: [id number] : 1995 Acct:[id number] Age/Sex: 29 / F ADM Date: 09/15/24 Loc: US Attending Dr: Edward Campuzano D.O. Ordering Physician: Edward Campuzano D.O. Date of Service: 09/15/24 Procedure(s): US pelvis transvaginal Accession Number(s): [id number] cc: DUARTE VALDERRAMA ; Edward Campuzano D.O. [place] [id number] Patient Name: MICHELLE GODINEZ MRN: [id number] date: 1995 Sex: F Assigned Patient Location: US Current Patient Location: US Accession/Order Number: [id number] Exam Date: 09/15/2024 13:45 Report Date: 09/15/2024 [...] Vinicio Loyd M.D.09/15/2024 1:47 PM Dictation [facility] Electronically authenticated by: [id number] Y Date: 09/15/2024 13:47 Dictated By: Vinicio Loyd D.O. Signed By: 09/15/24 1358 DD/ 1347 TD/TT: Airport Operations Officer: [facility] Radiology Study observation (narrative) [facility] US PELVIS TRANSVAGINALOrdere d By: Radiologist Radiology on 09-15-2024 [facility] Work Phone: Urinalysis macro (dipstick) panel (U)on 09-15-2024 Bilirubin, UA Negative Negative - 4(70) +++ mg/dL [facility] Blood, UA Positive Negative - 50 Anselmo/mcL [facility] Comment on above: trace-lysed Clarity, UA Clear [facility] Color, UA Yellow [facility] Glucose, UA Negative Negative - 1999(110) ++++ mg/dL [facility] Interpretation and review of laboratory results Abnormal [facility] Ketones, UA Negative Negative - 160(16) ++++ mg/dL [facility] Leukocytes, UA Positive Negative - 500+++ Monik/mcL [facility] Comment on above: small Nitrite, UA Negative Negative - Positive [facility] pH, UA 7.5 5 - 9 [facility] Protein, UA Trace Negative - 2000(20) ++++ mg/dL [facility] Spec Grav, UA 1.02 1 - 1.03 [facility] Urobilinogen, UA 0.2 0.2 - 12 mg/dL [facility] URINARY TRACT INFECTION (HTR X)on 05-30-2024 ACINETOBACTER BAUMANII 0 NO [facility] ACINETOBACTER BAUMANII Not detected [facility] SHANNON ALBICANS, PARAPSILOSIS, TROPICALIS 0 [facility] SHANNON ALBICANS, PARAPSILOSIS, TROPICALIS Not detected [facility] SHANNON GLABRATA 0 [facility] SHANNON GLABRATA Not detected [facility] SHANNON KRUSEI 0 [facility] SHANNON KRUSEI Not detected [facility] CITROBACTER FREUNDII 0 [facility] CITROBACTER FREUNDII Not detected NO [facility] ENTEROBACTER AEROGENES, CLOACAE 0 [facility] ENTEROBACTER AEROGENES, CLOACAE Not detected [facility] ENTEROCOCCUS FAECALIS, FAECIUM 0 [facility] ENTEROCOCCUS FAECALIS, FAECIUM Not detected [facility] ESCHERICHIA COLI 0 [facility] ESCHERICHIA COLI Not detected [facility] Interpretation and review of laboratory results Abnormal [facility] KLEBSIELLA PNEUMONIAE, OXYTOCA 0 [facility] KLEBSIELLA PNEUMONIAE, OXYTOCA Not detected [facility] MORGANELLA MORGANII 0 [facility] MORGANELLA MORGANII Not detected NOM [facility] PROTEUS MIRABILIS, VULGARIS 0 [facility] PROTEUS MIRABILIS, VULGARIS Not detected [facility] PSEUDOMONAS AERUGINOSA 0 NO MS [facility] PSEUDOMONAS AERUGINOSA Not detected [facility] SERRATIA MARCESCENS 0 [facility] SERRATIA MARCESCENS Not detected NOM S [facility] STAPHYLOCOCCUS AUREUS 0 NOM [facility] STAPHYLOCOCCUS AUREUS Not detected N OMS [facility] STAPHYLOCOCCUS EPIDERMIDIS, HAEMOLYTICUS, LUGDUNENSIS, SAPROPHYTICUS (URINA 0 [facility] STAPHYLOCOCCUS EPIDERMIDIS, HAEMOLYTICUS, LUGDUNENSIS, SAPROPHYTICUS (URINA Not detected [facility] STAPHYLOCOCCUS EPIDERMIDIS, HAEMOLYTICUS, LUGDUNENSIS, SAPROPHYTICUS (URINA 29.998 Abnormal [facility] STAPHYLOCOCCUS EPIDERMIDIS, HAEMOLYTICUS, LUGDUNENSIS, SAPROPHYTICUS (URINA Detected Abnormal [facility] STREPTOCOCCUS AGALACTIAE (GROUP B STREP) 0 [facility] STREPTOCOCCUS AGALACTIAE (GROUP B STREP) Not detected [facility] STREPTOCOCCUS PYOGENES (GROUP A STREP) 0 [facility] STREPTOCOCCUS PYOGENES (GROUP A STREP) Not detected [facility] HCG ( test) Ql (U)o n 05-28-2024 Interpretation and review of laboratory results Normal [facility] Preg Test, Ur Negative Negative [facility] Urinalysis macro (dipstick) panel (U)on 05-28-2024 Bilirubin, UA Negative Negative - 4(70) +++ mg/dL [facility] Blood, UA Positive Negative - 50 Anselmo/mcL [facility] Comment on above: trace Clarity, UA Clear [facility] Color, UA Yellow [facility] Glucose, UA Negative Negative - 1999(110) ++++ mg/dL [facility] Interpretation and review of laboratory results Abnormal [facility] Ketones, UA Negative Negative - 160(16) ++++ mg/dL [facility] Leukocytes, UA Trace Negative - 500+++ Monik/mcL [facility] Nitrite, UA Negative Negative - Positive [facility] pH, UA 6.5 5 - 9 [facility] Protein, UA Negative Negative - 1999(20) ++++ mg/dL [facility] Spec Grav, UA 1.025 1 - 1.03 [facility] Urobilinogen, UA 0.2 0.2 - 12 mg/dL [facility] Urology Office/Clinic Noteon 05-07-2024 Urology Office/Clinic Note Urology Office/Clinic Note Chief Complaint recurrent utis [facility] Staff 28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 Otherwise f/u PRN. Ordered: 12495 Measure Post Void residual urine and/or bladder capacity by US- non-imaging E&M of New Patient Moderate 45-59 Min 17572 Urnls Dip Stick Auto w/o Microscopy POC 55175 Follow-up With When Contact Information LEYDI JEFFERS PA-C, URL Only if needed [address] [place] [address] Business (1) Additional Instructions: Patient [...] Protein Urine Dipstick: Trace (05/07/24 14:28:00) Specific [place] Urine Dipstick: >=1.030 (05/07/24 14:28:00) Urine Appearance Urine Dipstick: Clear (05/07/24 14:28:00) Urine Color Urine Dipstick: Yellow (05/07/24 14:28:00) Urobilinogen Urine Dipstick: Normal 0.2-1 EU/dl (05/07/24 14:28:00) pH Urine Dipstick: 7 (05/07/24 14:28:00) Normal [facility] Comment on above: Result Comment: Elec tronically Signed By: ZEYAD LEO, LEYDI Canales\Date and Time Signed: 05/07/24 15:26 EST Urinalysis macro (dipstick) panel (U)on 04-21-2024 Bilirubin, UA Negative Negative - 4(70) +++ mg/dL [facility] Blood, UA Positive Negative - 50 Anselmo/mcL [facility] Clarity, UA Clear [facility] Color, UA Yellow [facility] Glucose, UA Negative Negative - 1999(110) ++++ mg/dL [facility] Interpretation and review of laboratory results Abnormal [facility] Ketones, UA Negative Negative - 160(16) ++++ mg/dL [facility] Leukocytes, UA Trace Negative - 500+++ Monik/mcL [facility] Nitrite, UA Negative Negative - Positive [facility] pH, UA 5.5 5 - 9 [facility] Protein, UA Negative Negative - 1999(20) ++++ mg/dL [facility] Spec Grav, UA 1.025 1 - 1.03 [facility] Urobilinogen, UA 1.0 0.2 - 12 mg/dL [facility] COLE Antinuclear Antibodieson 04-16-2024 Antinuclear Abs, IFA Positive Critically abnormal . [facility] Comment on above: Result Comment: Nega tive <1:80 Borderline 1:80 Positive >1:80 Performed By: #### C K #### [address] #### COLE #### [facility] , Note 1 Comment Normal . [facility] Comment on above: Result Comment: Kaleigh vasquez Potential Disease Association Homogeneous Systemic Lupus Erythematosus, Drug Induced Systemic Lupus Erythematosus, Chronic Autoimmune hepatitis, Juvenile Idiopathic Arthritis Speckled Sjogren Syndrome, Systemic Lupus Erythematosus, Subacute Cutaneous Lupus, Lupus, Congenital Heart Block, Mixed Connective Tissue Disease, Scleroderma-diffuse, Scleroderma-Autoimmune Myositis Overlap Syndrome, Systemic Lupus Uoodihqsmeeyw-Xztaqlewsun-Fkuvzxboeg Myositis Overlap Syndrome, Systemic Autoimmune Rheumatic Disease, [...] Cytopenias, Linear Scleroderma, Antiphospholipid Syndrome Performed at: [facility] [address] [place], [place] [id number] Salon Professional: Chiki Santoyo PhD, Phone: [phone] PERFORMED BY: [place] [address] PATHOLOGIST DIESEL TRUCK DRIVER BRAD LINDSEY M.D. Performed By: #### C K #### [place] [address] [place] #### COLE #### [facility] , Nuclear Dot Pattern 1:1280 High . [facility] Comment on above: Result Comment: ICAP nomenclature: AC-6,7 Performed By: #### C K #### [place] [address] [place] #### COLE #### [facility] , Speckled Pattern 1:320 High . [facility] Comment on above: Result Comment: Dens e Fine Speckled pattern is noted. This pattern suggests the presence of DFS70 antibody which has a low prevalence in systemic autoimmune rheumatic diseases. ICAP nomenclature: AC-2,4,5,29 Performed By: #### C K #### [place] [address] [place] #### COLE #### [facility] , Creatine kinase [Enzymatic a ctivity/volume] in Serum or PlasmaOrdered By: Igor Becerra on 04-16-2024 CK [Catalytic activity/Vol] 47 U/L Normal 30-223 [facility] Comment on above: Result Comment: PERF ORMED BY: [place] [address] PATHOLOGIST DIESEL TRUCK DRIVER BRAD LINDSEY M.D. Performed By: #### C K #### [place] [address] [place] #### COLE #### [facility] , HCG QUALITATIVE*on 4 [facility] , QUAL Negative NEGATIVE [facility] [facility] 03-10-2024 L Specimen: [id number] Received: 03/10/24 Status: CHRISGelacio Cyr Num: [id number] Spec Type: Surgical Subm Dr: Janie Theodore DO Tissues: A Gallbladder (GALLBLADDER) Procedures: HE, Gross/Micro L3 Age/ Patient Sex Location Account Attending Physician Michelle Godinez 28/F [place] [id number] Janie Theodore DO SPEC NUM: [id number] RECD: 03/10/24 STATUS: ADRIANNE CYR NUM: [id number] DOE: 03/10/[address]: Janie Theodore DO ENTERED: 03/10/[address] [facility] [address]: Peng Noyola SPEC TYPE: Surgical DEPT: FARHANA LOPEZ ENTERED BY: [id number] RECV BY: [id number] ORDERED: HE, Gross/Micro L3 ORDERED: HE, Gross/Micro [...] cystic duct is compacted with a calculus. [employer] sections are submitted in cassette A1. DM Specimen: [id number] Received: 03/10/24 Status: ADRIANNE Cyr Num: [id number] Spec Type: Surgical Subm Dr: Janie Theodore DO Tissues: A Gallbladder (GALLBLADDER) Procedures: Sanjay WILLIS Patient: HerbertKarenjese Barry [id number] (Continued) Specimen: [id number] Received: 03/10/24 (Continued) Signed (signature on file) Tali Martinez MD 03/16/241921 Specimen: [id number] Received: 03/10/24 Status: ADRIANNE Cyr Num: [id number] Spec Type: Surgical Subm Dr: Janie Theodore DO Tissues: A Gallbladder (GALLBLADDER) Procedures: Sanjay WILLIS Patient: Michelle Godinez [id number] (Continued) Specimen: [id number] Received: 03/10/24 (Continued) Microscopic Description Microscopic examinations are performed supporting the above interpretation CPT Codes 11386 Specimen: [id number] Received: 03/10/24 Status: ADRIANNE Cyr Num: [id number] Spec Type: Surgical Subm Dr: Janie Theodore DO Tissues: A Gallbladder (GALLBLADDER) Procedures: LAZARO, Gross/Jaquelin L3 Patient: Michelle Godinez [id number] (Continued) Signed (signature on file) Tali Martinez MD 03/16/241921 Normal [facility] ALL CBC WITH AUTO DIFFon BASOPHILS ABSOLUTE AUTO 0.1 [facility] Basophils/100 WBC (Bld) 0.5 % 0.2 - 2.0 % [facility] Eosinophils/100 WBC (Bld) 1.8 % 0.9 - 7.0 % [facility] Erythrocyte distribution width (RBC) [Ratio] 15.2 % High 11.0 - 15.0 % [facility] Hematocrit (Bld) [Volume fraction] 28.8 % Low 36.0 - 48.0 % [facility] Hemoglobin (Bld) [Mass/Vol] 9.1 g/dL Low 12.0 - 16.0 g/dL [facility] IMMATURE GRANULOCYTES ABS AUTO 0.14 High [facility] Immature granulocytes/100 WBC (Bld) 1.1 % High 0.0 - 0.5 % [facility] Interpretation and review of laboratory results Abnormal [facility] LYMPHOCYTES ABSOLUTE AUTO 2.7 [facility] Lymphocytes/100 WBC (Bld) 20.5 % 20.5 - 60.0 % [facility] MCH (RBC) [Entitic mass] 27.2 pg 26.7 - [facility] ([facility]) [Mass/Vol] 31.6 g/dL 29.9 - 35.2 g/dL [facility] MCV (RBC) [Entitic vol] 86.0 fL 81.0 - 99.0 fL [facility] MONOCYTES ABSOLUTE AUTO 1.1 High [facility] Monocytes/100 WBC (Bld) 8.8 % 1.7 - 12.0 % [facility] NEUTROPHILS ABSOLUTE AUTO 8.8 High [facility] Neutrophils/100 WBC (Bld) 67.3 % 43.0 - 75.0 % [facility] Platelet mean volume (Bld) [Entitic vol] 9.6 fL 9.5 - 13.5 fL [facility] EO # 0.2 [facility] PLT 324 [facility] RBC 3.35 Low [facility] WBC 13.0 High [facility] WITH PLATELET NO DI FFERENTIALon 02-06-2024 Erythrocyte distribution width (RBC) [Ratio] 15.2 % High 11.0 - 15.0 % [facility] Hematocrit (Bld) [Volume fraction] 31.2 % Low 36.0 - 48.0 % [facility] Hemoglobin (Bld) [Mass/Vol] 9.8 g/dL Low 12.0 - 16.0 g/dL [facility] Interpretation and review of laboratory results Abnormal [facility] MCH (RBC) [Entitic mass] 27.3 pg 26.7 - 34.0 pg [facility] MCHC (RBC) [Mass/Vol] 31.4 g/dL 29.9 - 35.2 g/dL [facility] MCV (RBC) [Entitic vol] 86.9 fL 81.0 - 99.0 fL [facility] Platelet mean volume (Bld) [Entitic vol] 9.6 fL 9.5 - 13.5 fL [facility] PLT 342 [facility] RBC 3.59 Low [facility] WBC 10.7 [facility] ALL CBC WITH AUTO DIFFon BASOPHILS ABSOLUTE AUTO 0.1 [facility] Basophils/100 WBC (Bld) 0.7 % 0.2 - 2.0 % [facility] Eosinophils/100 WBC (Bld) 2.6 % 0.9 - 7.0 % [facility] Erythrocyte distribution width (RBC) [Ratio] 13.4 % 11.0 - 15.0 % [facility] Hematocrit (Bld) [Volume fraction] 39.0 % 36.0 - 48.0 % [facility] Hemoglobin (Bld) [Mass/Vol] 12.8 g/dL 12.0 - 16.0 g/dL [facility] IMMATURE GRANULOCYTES ABS AUTO 0.01 [facility] Immature granulocytes/100 WBC (Bld) 0.1 % 0.0 - 0.5 % [facility] LYMPHOCYTES ABSOLUTE AUTO 2.2 [facility] Lymphocytes/100 WBC (Bld) 26.1 % 20.5 - 60.0 % [facility] MCH (RBC) [Entitic mass] 28.6 pg 26.7 - 34.0 pg [facility] MCHC (RBC) [Mass/Vol] 32.8 g/dL 29.9 - 35.2 g/dL [facility] MCV (RBC) [Entitic vol] 87.2 fL 81.0 - 99.0 fL [facility] MONOCYTES ABSOLUTE AUTO 0.5 N [facility] Monocytes/100 WBC (Bld) 5.7 % 1.7 - 12.0 % [facility] NEUTROPHILS ABSOLUTE AUTO 5.5 [facility] Neutrophils/100 WBC (Bld) 64.8 % 43.0 - 75.0 % [facility] Platelet mean volume (Bld) [Entitic vol] 10.1 fL 9.5 - 13.5 fL [facility] EO # 0.2 [facility] PLT 340 [facility] RBC 4.47 [facility] WBC 8.4 [facility] HCG ( test) Ql (U)o n 07-19-2023 Interpretation and review of laboratory results Abnormal [facility] Preg Test, Ur Positive [facility] Urinalysis macro (dipstick) panel (U)on 07-19-2023 Bilirubin, UA Negative Negative - 4(70) +++ mg/dL [facility] Blood, UA Positive Negative - 50 Anselmo/mcL [facility] Comment on above: moderate Clarity, UA Clear [facility] Color, UA [place] [facility] Glucose, UA Negative Negative - 1999(110) ++++ mg/dL [facility] Interpretation and review of laboratory results Abnormal [facility] Ketones, UA Positive Negative - 160(16) ++++ mg/dL [facility] Comment on above: trace Leukocytes, UA Positive Negative - 500+++ Monik/mcL [facility] Comment on above: small Nitrite, UA Negative Negative - Positive [facility] pH, UA 6.0 5 - 9 [facility] Protein, UA Positive Negative - 1999(20) ++++ mg/dL [facility] Comment on above: 30 Spec Grav, UA 1.030 1 - 1.03 [facility] Urobilinogen, UA 1.0 0.2 - 12 mg/dL [facility] CBC AUTO DIFFon 07-30-2022 BASO # 0.1 103/ul Normal 0.0-0.1 [facility] Comment on above: Performed By: #### U RCX #### [facility] [address] [address] [address] Caitlin Martinez Basophils/100 WBC (Bld) 1.1 % Normal 0.2-2.0 [facility] Comment on above: Performed By: #### U RCX #### [facility] [address] [address] [address] Caitlin Martinez EO # 0.3 103/ul Normal 0.0-0.7 [facility] Comment on above: Performed By: #### U RCX #### [facility] [address] [place] [address] Dr. Caitlin Martinez Eosinophils/100 WBC (Bld) 4.7 % Normal 0.9-7.0 [facility] Comment on above: Performed By: #### U RCX #### [facility] [address] [address] [address] Caitlin Martinez Erythrocyte distribution width (RBC) [Ratio] 14.7 % Normal 11.0-15.0 [facility] Comment on above: Performed By: #### U RCX #### [facility] [address] [place] [address] Dr. Caitlin Martinez Hematocrit (Bld) [Volume fraction] 39.3 % Normal 36.0-48.0 [facility] Comment on above: Performed By: #### U RCX #### [facility] [address] [address] [address] Caitlin Martinez Hemoglobin (Bld) [Mass/Vol] 12.7 g/dL Normal 12.0-16.0 [facility] Comment on above: Performed By: #### U RCX #### [facility] [address] [address] [address] Caitlin Martinez IG # 0.02 10e3/ul Normal 0.00-0.03 [facility] Comment on above: Performed By: #### U RCX #### [facility] [address] [address] [address] Caitlin Martinez IG % 0.3 % Normal 0.0-0.5 [facility] Comment on above: Performed By: #### U RCX #### [facility] [address] [address] [address] Caitlin Martinez LYMPH # 2.5 103/ul Normal 1.2-3.8 [facility] Comment on above: Performed By: #### U RCX #### [facility] [address] [place] [address] Dr. Caitlin Martinez Lymphocytes/100 WBC (Bld) 34.5 % Normal 20.5-60.0 [facility] Comment on above: Performed By: #### U RCX #### [facility] [address] [place] [address] Dr. Caitlin Martinez MANUAL DIFF REQ NO Normal [facility] Comment on above: Performed By: #### U RCX #### [facility] [address] [place] [address] Dr. Caitlin Martinez MCH (RBC) [Entitic mass] 27.3 pg Normal 26.7-34.0 [facility] Comment on above: Performed By: #### U RCX #### [facility] [address] [place] [address] Dr. Caitlin Martinez MCHC (RBC) [Mass/Vol] 32.3 g/dL Normal 29.9-35.2 [facility] Comment on above: Performed By: #### U RCX #### [facility] [address] [place] [address] Dr. Caitlin Martinez MCV (RBC) [Entitic vol] 84.5 fL Normal 81.0-99.0 [facility] Comment on above: Performed By: #### U RCX #### [facility] [address] [place] [address] Dr. Caitlin Martinez MONO # 0.5 103/ul Normal 0.3-0.8 [facility] Comment on above: Performed By: #### U RCX #### [facility] [address] [address] [address] Caitlin Martinez Monocytes/100 WBC (Bld) 7.3 % Normal 1.7-12.0 [facility] Comment on above: Performed By: #### U RCX #### [facility] [address] [address] [address] Caitlin Martinez NEUT # 3.8 103/ul Normal 1.4-6.5 [facility] Comment on above: Performed By: #### U RCX #### [facility] [address] [address] [address] Caitlin Martinez Neutrophils/100 WBC (Bld) 52.1 % Normal 43.0-75.0 [facility] Comment on above: Performed By: #### U RCX #### [facility] [address] [place] [address] Dr. Caitlin Martinez Platelet mean volume (Bld) [Entitic vol] 9.0 fL Critically low 9.5-13.5 [facility] Comment on above: Performed By: #### U RCX #### [facility] [address] [place] [address] Dr. Caitlin Martinez PLT 368 103/ul Normal 150-450 [facility] Comment on above: Performed By: #### U RCX #### [facility] [address] [place] [address] Dr. Caitlin Martinez RBC 4.65 106/ul Normal 4.20-5.40 [facility] Comment on above: Performed By: #### U RCX #### [facility] [address] [place] [address] Dr. Caitlin Martinez WBC 7.2 103/ul Normal 4.0-11.0 [facility] Comment on above: Performed By: #### U RCX #### [facility] [address] [place] [address] Dr. Caitlin Martinez IRONon 07-30-2022 Iron [Mass/Vol] 43.0 ug/dL Critically low 50.0-170.0 [place] Comment on above: Performed By: #### U RCX #### [facility] [address] [address] [address] Caitlin Martinez PAP ACOG PANEL 2: 21 to 30on 07-30-2022 . . Normal [facility] Comment on above: Performed By: #### U RCX #### [facility] [address] [place] [address] Dr. Caitlin Martinez Age Gdln ACOG Testing - [facility] Comment on above: Performed By: #### U RCX #### [facility] [address] [address] [address] Caitlin Martinez DIAGNOSIS: Comment [facility] Comment on above: Result Comment: NEGA TIVE FOR INTRAEPITHELIAL LESION OR MALIGNANCY. Performed By: #### U RCX #### [facility] [address] [place] [address] Dr. Caitlin Martinez Methodology: Comment [facility] Comment on above: Result Comment: This liquid based ThinPrep(R) pap test was screened with the use of an image guided system. Performed By: #### U RCX #### [facility] [address] [place] [address] Dr. Caitlin Martinez Note: Comment [facility] Comment on above: Result Comment: The Pap smear is a screening test designed to aid in the detection of premalignant and malignant conditions of the uterine cervix. It is not a diagnostic procedure and should not be used as the sole means of detecting cervical cancer. Both false-positive and false-negative reports do occur. . Performed By: #### U RCX #### [facility] [address] [place] [address] Dr. Caitlin Martinez Performed by: Comment [facility] Comment on above: Result Comment: Bhavna Cormier, Barrel Dedenting Machine Operator (ASCP) Performed By: #### U RCX #### [facility] [address] [place] [address] Dr. Caitlin Martinez Reflex Criteria: Comment [facility] Comment on above: Result Comment: The HPV DNA reflex criteria were not met with this specimen result therefore, no HPV testing was performed. . Performed By: #### U RCX #### [facility] [address] [place] [address] Dr. Caitlin Martinez Specimen adequacy: Comment Normal [facility] Comment on above: Result Comment: Sati sfactory for evaluation. Endocervical and/or squamous metaplastic cells (endocervical component) are present. Performed By: #### U RCX #### [facility] [address] [place] [address] Dr. Caitlin Martinez INSULINon 04-19-2022 Insulin 9.1 uIU/mL Normal 2.6-24.9 [facility] Comment on above: Performed By: #### I HORACIO #### [facility] [address] [place] [address] Dr. Caitlin Martinez CBC AUTO DIFFon 04-18-2022 BASO # 0.1 103/ul Normal 0.0-0.1 [facility] Comment on above: Performed By: #### U RCX #### [facility] [address] [place] [address] Dr. Caitlin Martinez Basophils/100 WBC (Bld) 1.0 % Normal 0.2-2.0 [facility] Comment on above: Performed By: #### U RCX #### [facility] [address] [place] [address] Dr. Caitlin Martinez EO # 0.3 103/ul Normal 0.0-0.7 [facility] Comment on above: Performed By: #### U RCX #### [facility] [address] [place] [address] Dr. Caitlin Martinez Eosinophils/100 WBC (Bld) 4.1 % Normal 0.9-7.0 [facility] Comment on above: Performed By: #### U RCX #### [facility] [address] [place] [address] Dr. Caitlin Martinez Erythrocyte distribution width (RBC) [Ratio] 16.0 % Critically high 11.0-15.0 [facility] Comment on above: Performed By: #### U RCX #### [facility] [address] [address] [address] Caitlin Martinez Hematocrit (Bld) [Volume fraction] 35.7 % Critically low 36.0-48.0 [facility] Comment on above: Performed By: #### U RCX #### [facility] [address] [place] [address] Dr. Caitlin Martinez Hemoglobin (Bld) [Mass/Vol] 10.9 g/dL Critically low 12.0-16.0 [facility] Comment on above: Performed By: #### U RCX #### [facility] [address] [place] [address] Dr. Caitlin Matrinez IG # 0.07 10e3/ul Critically high 0.00-0.03 [facility] Comment on above: Performed By: #### U RCX #### [facility] [address] [place] [address] Dr. Caitlin Martinez IG % 1.0 % Critically high 0.0-0.5 [facility] Comment on above: Performed By: #### U RCX #### [facility] [address] [place] [address] Dr. Caitlin Martinez LYMPH # 2.3 103/ul Normal 1.2-3.8 [facility] Comment on above: Performed By: #### U RCX #### [facility] [address] [place] [address] Dr. Caitlin Martinez Lymphocytes/100 WBC (Bld) 31.4 % Normal 20.5-60.0 [facility] Comment on above: Performed By: #### U RCX #### [facility] [address] [place] [address] Dr. Caitlin Martinez MANUAL DIFF REQ NO Normal [facility] Comment on above: Performed By: #### U RCX #### [facility] [address] [place] [address] Dr. Caitlin Martinez MCH (RBC) [Entitic mass] 24.8 pg Critically low 26.7-34.0 [facility] Comment on above: Performed By: #### U RCX #### [facility] [address] [place] [address] Dr. Caitlin Martinez MCHC (RBC) [Mass/Vol] 30.5 g/dL Normal 29.9-35.2 [facility] Comment on above: Performed By: #### U RCX #### [facility] [address] [address] [address] Caitlin Martinez MCV (RBC) [Entitic vol] 81.1 fL Normal 81.0-99.0 [facility] Comment on above: Performed By: #### U RCX #### [facility] [address] [address] [address] Caitlin Martinez MONO # 0.5 103/ul Normal 0.3-0.8 [facility] Comment on above: Performed By: #### U RCX #### [facility] [address] [address] [address] Caitlin Martinez Monocytes/100 WBC (Bld) 6.6 % Normal 1.7-12.0 [facility] Comment on above: Performed By: #### U RCX #### [facility] [address] [address] [address] Caitlin Martinez NEUT # 4.1 103/ul Normal 1.4-6.5 [facility] Comment on above: Performed By: #### U RCX #### [facility] [address] [address] [address] Caitlin Martinez Neutrophils/100 WBC (Bld) 55.9 % Normal 43.0-75.0 [facility] Comment on above: Performed By: #### U RCX #### [facility] [address] [address] [address] Caitlin Martinez Platelet mean volume (Bld) [Entitic vol] 9.4 fL Critically low 9.5-13.5 [facility] Comment on above: Performed By: #### U RCX #### [facility] [address] [address] [address] Caitlin Martinez PLT 369 103/ul Normal 150-450 [facility] Comment on above: Performed By: #### U RCX #### [facility] [address] [address] [address] Caitlin Martinez RBC 4.40 106/ul Normal 4.20-5.40 [facility] Comment on above: Performed By: #### U RCX #### [facility] [address] [address] [address] Caitlin Martinez WBC 7.3 103/ul Normal 4.0-11.0 [facility] Comment on above: Performed By: #### U RCX #### [facility] [address] [address] [address] Caitlin Martinez FREE THYROXINE INDEX T7on FTI 2.20 Normal 1.30-4.50 [facility] Comment on above: Performed By: #### I HORACIO #### [facility] [address] [place] [address] Dr. Caitlin Martinez T3U 29.0 % Critically low 30.0-39.0 [facility] Comment on above: Performed By: #### I HORACIO #### [facility] [address] [place] [address] Dr. Caitlin Martinez T4 [Mass/Vol] 7.60 ug/dL Normal 4.80-13.90 [facility] Comment on above: Performed By: #### I HORACIO #### [facility] [address] [place] [address] Dr. Caitlin Martinez GLYCOHEMOGLOBIN A1Con 2021 ADA RECOMMENDATION SEE BELOW Normal [facility] Comment on above: Result Comment: ADA RECOMMENDED LIMIT 4.0 - 6.0 ADA THERAPEUTIC TARGET < 7.0 ACTION SUGGESTED > 7.0 Performed By: #### U RCX #### [facility] [address] [place] [address] Dr. Caitlin Martinez Glucose [Mass/Vol] 97 mg/dL Normal [facility] Comment on above: Performed By: #### U RCX #### [facility] [address] [place] [address] Dr. Caitlin Martinez HbA1c (Bld) [Mass fraction] 5.0 % Normal 4.5-6.2 [facility] Comment on above: Performed By: #### U RCX #### [facility] [address] [address] [address] Caitlin Martinez IRONon 04-18-2022 Iron [Mass/Vol] 35.0 ug/dL Critically low 50.0-170.0 [place] Comment on above: Performed By: #### I HORACIO #### [facility] [address] [address] [address] Caitlin Martinez LIPID PROFILEon 04-18-2022 CHOL-HDL RATIO NORM SEE BELOW Normal [place] Comment on above: Result Comment: 3.3 - 4.4 LOW RISK 4.4 - 7.1 AVERAGE RISK 7.1 - 11.0 MODERATE RISK >11.0 HIGH RISK Performed By: #### I HORACIO #### [facility] [address] [place] [address] Dr. Caitlin Martinez Cholesterol [Mass/Vol] 221 mg/dL Critically high <=200 [facility] Comment on above: Performed By: #### I HORACIO #### [facility] [address] [place] [address] Dr. Caitlin Martinez Cholesterol in HDL [Mass/Vol] 67 mg/dL Critically high 40-60 [facility] Comment on above: Performed By: #### I HORACIO #### [facility] [address] [place] [address] Dr. Caitlin Martinez Cholesterol in LDL [Mass/Vol] 142.4 mg/dL Normal [facility] Comment on above: Performed By: #### I HORACIO #### [facility] [address] [address] [address] Caitlin Martinez Cholesterol.total/Geeta sterol in HDL [Mass ratio] 3.3 {ratio} Normal [facility] Comment on above: Performed By: #### I HORACIO #### [facility] [address] [place] [address] Dr. Caitlin Martinez HDL NORMAL > or = 60 mg/dl - LOW CARDIOVASCULAR RISK <40 mg/dl - HIGH CARDIOVASCULAR RISK Normal [facility] Comment on above: Performed By: #### I HORACIO #### [facility] [address] [place] [address] Dr. Caitlin Martinez LDL CALC NORMAL SEE BELOW Normal [facility] Comment on above: Result Comment: <100 mg/dl OPTIMAL 100 - 129 mg/dl NEAR OR ABOVE OPTIMAL 130 - 159 mg/dl BORDERLINE HIGH 160 - 189 mg/dl HIGH >190 mg/dl VERY HIGH Performed By: #### I HORACIO #### [facility] [address] [address] [address] Caitlin Martinez Triglyceride [Mass/Vol] 58 mg/dL Normal <=150 T [facility] Comment on above: Performed By: #### I HORACIO #### [facility] [address] [address] [address] Caitlin Martinez VLDL CALC 11.6 mg/dL Normal [facility] Comment on above: Performed By: #### I HORACIO #### [facility] [facility] [address] [address] [address] Caitlin Martinez PROF 14(COMP METB)on 022 Albumin [Mass/Vol] 3.8 g/dL Normal 3.4-5.0 [facility] Comment on above: Performed By: #### I HORACIO #### [facility] [address] [address] [address] Caitlin Martinez Albumin/Globulin [Mass ratio] 1.1 {ratio} Normal [facility] Comment on above: Performed By: #### I HORACIO #### [facility] [address] [place] [address] Dr. Caitlin Martinez ALP [Catalytic activity/Vol] 132 U/L Critically high 46-116 [facility] Comment on above: Performed By: #### I HORACIO #### [facility] [address] [address] [address] Caitlin Martinez ALT [Catalytic activity/Vol] 55 U/L Normal 14-59 [facility] Comment on above: Performed By: #### I HORACIO #### [facility] [address] [address] [address] Caitlin Martinez Anion gap [Moles/Vol] 12.6 mmol/L Normal [facility] Comment on above: Performed By: #### I HORACIO #### [facility] [address] [address] [address] Caitlin Martinez AST [Catalytic activity/Vol] 27 U/L Normal 15-37 [facility] Comment on above: Performed By: #### I HORACIO #### [facility] [address] [place] [address] Dr. Caitlin Martinez Bilirubin [Mass/Vol] 0.6 mg/dL Normal 0.2-1.0 [facility] Comment on above: Performed By: #### I HORACIO #### [facility] [address] [place] [address] Dr. Caitlin Martinez Calcium [Mass/Vol] 9.1 mg/dL Normal 8.5-10.1 [facility] Comment on above: Performed By: #### I HORACIO #### [facility] [address] [place] [address] Dr. Caitlin Martinez Chloride [Moles/Vol] 106 mmol/L Normal 98-107 [facility] Comment on above: Performed By: #### I HORACIO #### [facility] [address] [place] [address] Dr. Caitlin Martinez CO2 [Moles/Vol] 26.5 mmol/L Normal 21.0-32.[address] [facility] Comment on above: Performed By: #### I HORACIO #### [facility] [address] [place] [address] Dr. Caitlin Martinez Creatinine [Mass/Vol] 0.63 mg/dL Normal 0.55-1.02 [facility] Comment on above: Performed By: #### I HORACIO #### [facility] [address] [place] [address] Dr. Caitlin Martinez EGFR-AF PARAGUAYAN >60 Normal >=[address] [facility] Comment on above: Performed By: #### I HORACIO #### [facility] [address] [place] [address] Dr. Caitlin Martinez EGFR-NON AF PARAGUAYAN >60 Normal >=60 [facility] Comment on above: Performed By: #### I HORACIO #### [facility] [address] [place] [address] Dr. Caitlin Martinez Globulin (S) [Mass/Vol] 3.6 g/dL Normal [facility] Comment on above: Performed By: #### I HORACIO #### [facility] [address] [place] [address] Dr. Caitlin Martinez Glucose [Mass/Vol] 98 mg/dL Normal 74-106 [facility] Comment on above: Performed By: #### I HORACIO #### [facility] [address] [place] [address] Dr. Caitlin Martinez Potassium [Moles/Vol] 4.1 mmol/L Normal 3.5-5.1 [facility] Comment on above: Performed By: #### I HORACIO #### [facility] [address] [place] [address] Dr. Caitlin Martinez Protein [Mass/Vol] 7.4 g/dL Normal 6.4-8.2 [facility] Comment on above: Performed By: #### I HORACIO #### [facility] [address] [place] [address] Dr. Caitlin Martinez Sodium [Moles/Vol] 141 mmol/L Normal 136-145 [facility] Comment on above: Performed By: #### I HORACIO #### [facility] [address] [place] [address] Dr. Caitlin Martinez Urea nitrogen [Mass/Vol] 9.0 mg/dL Normal 7.0-18.0 [facility] Comment on above: Performed By: #### I HORCAIO #### [facility] [address] [place] [address] Dr. Caitlin Martinez Urea nitrogen/Creatinine [Mass ratio] 14.3 mg/mg Normal [facility] Comment on above: Performed By: #### I HORACIO #### [facility] [address] [place] [address] Dr. Caitlin Martinez TSHon 04-18-2022 TSH 1.349 uIU/mL Normal 0.358-3.740 [facility] Comment on above: Performed By: #### I HORACIO #### [facility] [address] [place] [address] Dr. Caitlin Martinez ANTIBODY ID PANELon 02-15-20 22 ANTIBODY ID PANEL Antibody ID Anti-D Blood Bank Notes most likely due to Rhogam given on 12/01/21 Normal [facility] Comment on above: Performed By: #### D IRCMBTRACY #### [facility] [address] [place] [address] Dr. Caitlin Martinez CTA CHEST WO W [...] by: PILAR WHEELER Date: 2022-02-10 22:55 Normal [facility] CBC AUTO DIFFon 02-10-2022 BASO # 0.1 103/ul Normal 0.0-0.1 [facility] Comment on above: Performed By: #### C BC #### [facility] [address] [place] [address] Dr. Caitlin Martinez Basophils/100 WBC (Bld) 0.4 % Normal 0.2-2.0 [facility] Comment on above: Performed By: #### C BC #### [facility] [address] [place] [address] Dr. Caitlin Martinez EO # 0.5 103/ul Normal 0.0-0.7 [facility] Comment on above: Performed By: #### C BC #### [facility] [address] [place] [address] Dr. Caitlin Martinez Eosinophils/100 WBC (Bld) 4.2 % Normal 0.9-7.0 [facility] Comment on above: Performed By: #### C BC #### [facility] [address] [place] [address] Dr. Caitlin Martinez Erythrocyte distribution width (RBC) [Ratio] 14.7 % Normal 11.0-15.0 [facility] Comment on above: Performed By: #### C BC #### [facility] [address] [place] [address] Dr. Caitlin Martinez Hematocrit (Bld) [Volume fraction] 31.1 % Critically low 36.0-48.0 [facility] Comment on above: Performed By: #### C BC #### [facility] [address] [place] [address] Dr. Caitlin Martinez Hemoglobin (Bld) [Mass/Vol] 9.6 g/dL Critically low 12.0-16.0 [facility] Comment on above: Performed By: #### C BC #### [facility] [address] [place] [address] Dr. Caitlin Martinez IG # 0.28 10e3/ul Critically high 0.00-0.03 [facility] Comment on above: Performed By: #### C BC #### [facility] [address] [place] [address] Dr. Caitlin Martinez IG % 2.3 % Critically high 0.0-0.5 [facility] Comment on above: Performed By: #### C BC #### [facility] [address] [place] [address] Dr. Caitlin Martinez LYMPH # 3.3 103/ul Normal 1.2-3.8 [facility] Comment on above: Performed By: #### C BC #### [facility] [address] [place] [address] Dr. Caitlin Martinez Lymphocytes/100 WBC (Bld) 26.9 % Normal 20.5-60.0 [facility] Comment on above: Performed By: #### C BC #### [facility] [address] [place] [address] Dr. Caitlin Martinez MANUAL DIFF REQ NO Normal [facility] Comment on above: Performed By: #### C BC #### [facility] [address] [address] [address] Caitlin Martinez MCH (RBC) [Entitic mass] 26.2 pg Critically low 26.7-34.0 [facility] Comment on above: Performed By: #### C BC #### [facility] [address] [place] [address] Dr. Caitlin Martinez MCHC (RBC) [Mass/Vol] 30.9 g/dL Normal 29.9-35.2 [facility] Comment on above: Performed By: #### C BC #### [facility] [address] [place] [address] Dr. Caitlin Martinez MCV (RBC) [Entitic vol] 84.7 fL Normal 81.0-99.0 [facility] Comment on above: Performed By: #### C BC #### [facility] [address] [place] [address] Dr. Caitlin Martinez MONO # 1.1 103/ul Critically high 0.3-0.8 [facility] Comment on above: Performed By: #### C BC #### [facility] [address] [place] [address] Dr. Caitlin Martinez Monocytes/100 WBC (Bld) 8.7 % Normal 1.7-12.0 [facility] Comment on above: Performed By: #### C BC #### [facility] [address] [place] [address] Dr. Caitlin Martinez NEUT # 7.0 103/ul Critically high 1.4-6.5 [facility] Comment on above: Performed By: #### C BC #### [facility] [address] [place] [address] Dr. Caitlin Martinez Neutrophils/100 WBC (Bld) 57.5 % Normal 43.0-75.0 [facility] Comment on above: Performed By: #### C BC #### [facility] [address] [place] [address] Dr. Caitlin Martinez Platelet mean volume (Bld) [Entitic vol] 9.1 fL Critically low 9.5-13.5 [facility] Comment on above: Performed By: #### C BC #### [facility] [address] [place] [address] Dr. Caitlin Martinez PLT 437 103/ul Normal 150-450 [facility] Comment on above: Performed By: #### C BC #### [facility] [address] [address] [address] Caitlin Martinez RBC 3.67 106/ul Critically low 4.20-5.40 [facility] Comment on above: Performed By: #### C BC #### [facility] [address] [address] [address] Caitlin Martinez WBC 12.3 103/ul Critically high 4.0-11.0 [facility] Comment on above: Performed By: #### C BC #### [facility] [address] [place] [address] Dr. Caitlin Martinez Covid-19 PCR (CVDTB)on 01-16 SARS-CoV-2 (COVID-19) RNA JONATAN+probe Ql (Unsp spec) Not detected Normal NOT DETECTED [facility] Comment on above: Result Comment: When [...] for this test is supported by the [employer]'s declaration that [...] used). Performed By: #### C VDTBH #### [facility] [address] [place] [address] Dr. Caitlin Martinez PROF 14(COMP METB)on 022 Albumin [Mass/Vol] 2.1 g/dL Critically low 3.4-5.0 [facility] Comment on above: Performed By: #### U RCX #### [facility] [address] [place] [address] Dr. Caitlin Martinez Albumin/Globulin [Mass ratio] 0.5 {ratio} Normal [facility] Comment on above: Performed By: #### U RCX #### [facility] [address] [place] [address] Dr. Caitlin Martinez ALP [Catalytic activity/Vol] 202 U/L Critically high 46-116 [facility] Comment on above: Performed By: #### U RCX #### [facility] [address] [place] [address] Dr. Caitlin Martinez ALT [Catalytic activity/Vol] 20 U/L Normal 14-59 [facility] Comment on above: Performed By: #### U RCX #### [facility] [address] [place] [address] Dr. Caitlin Martinez Anion gap [Moles/Vol] 11.6 mmol/L Normal [facility] Comment on above: Performed By: #### U RCX #### [facility] [address] [place] [address] Dr. Caitlin Martinez AST [Catalytic activity/Vol] 17 U/L Normal 15-37 [facility] Comment on above: Performed By: #### U RCX #### [facility] [address] [place] [address] Dr. Caitlin Martinez Bilirubin [Mass/Vol] 0.3 mg/dL Normal 0.2-1.0 [facility] Comment on above: Performed By: #### U RCX #### [facility] [address] [place] [address] Dr. Caitlin Martinez Calcium [Mass/Vol] 9.2 mg/dL Normal 8.5-10.1 [facility] Comment on above: Performed By: #### U RCX #### [facility] [address] [place], [place] [id number] Dr. Caitlin Martinez Chloride [Moles/Vol] 104 mmol/L Normal 98-107 [facility] Comment on above: Performed By: #### U RCX #### [facility] [address] [address] [address] Caitlin Martinez CO2 [Moles/Vol] 26.9 mmol/L Normal 21.0-32.0 [facility] Comment on above: Performed By: #### U RCX #### [facility] [address] [address] [address] Caitlin Martinez Creatinine [Mass/Vol] 0.56 mg/dL Normal 0.55-1.02 [facility] Comment on above: Performed By: #### U RCX #### [facility] [address] [place] [address] Dr. Caitlin Martinez EGFR-AF PARAGUAYAN >60 Normal >=60 [facility] Comment on above: Performed By: #### U RCX #### [facility] [address] [place] [address] Dr. Caitlin Martinez EGFR-NON AF PARAGUAYAN >60 Normal >=60 [facility] Comment on above: Performed By: #### U RCX #### [facility] [address] [place] [address] Dr. Caitlin Martinez Globulin (S) [Mass/Vol] 4.4 g/dL Normal [facility] Comment on above: Performed By: #### U RCX #### [facility] [address] [place] [address] Dr. Caitlin Martinez Glucose [Mass/Vol] 108 mg/dL Critically high 74-106 [facility] Comment on above: Performed By: #### U RCX #### [facility] [address] [place] [address] Dr. Caitlin Martinez Potassium [Moles/Vol] 3.5 mmol/L Normal 3.5-5.1 [facility] Comment on above: Performed By: #### U RCX #### [facility] [address] [place] [address] Dr. Caitlin Martinez Protein [Mass/Vol] 6.5 g/dL Normal 6.4-8.2 [facility] Comment on above: Performed By: #### U RCX #### [facility] [address] [place] [address] Dr. Caitlin Martinez Sodium [Moles/Vol] 139 mmol/L Normal 136-145 [facility] Comment on above: Performed By: #### U RCX #### [facility] [address] [place] [address] Dr. Caitlin Martinez Urea nitrogen [Mass/Vol] 7.0 mg/dL Normal 7.0-18.0 [facility] Comment on above: Performed By: #### U RCX #### [facility] [address] [place] [address] Dr. Caitlin Martinez Urea nitrogen/Creatinine [Mass ratio] 12.5 mg/mg Normal [facility] Comment on above: Performed By: #### U RCX #### [facility] [address] [place] [address] Dr. Caitlin Martinez TROPONIN, HIGH SENSITIVITYon 02-10-2022 HSTROP <4.0 Normal 4.0-51.3 [facility] Comment on above: Result Comment: CUT- OFF POINTS HAVE BEEN ESTABLISHED BASED ON THE FOURTH UNIVERSAL DEFINITIONS OF MYOCARDIAL INFARCTION. THE UPPER REFERENCE LIMIT (URL) OF TROPONIN, DEFINED THE 99TH PERCENTILE OF cTnI DISTRIBUTION IN A REFERENCE POPULATION, HAS BEEN CONFIRMED THE DECISION THRESHOLD FOR [place] DIAGNOSIS. Performed By: #### U RCX #### [facility] [address] [place] [address] Dr. Caitlin Martinez CBC AUTO DIFFon 02-09-2022 BASO # 0.1 103/ul Normal 0.0-0.1 [facility] Comment on above: Performed By: #### U RCX #### [facility] [address] [place] [address] Dr. Caitlin Martinez Basophils/100 WBC (Bld) 0.6 % Normal 0.2-2.0 [facility] Comment on above: Performed By: #### U RCX #### [facility] [address] [place] [address] Dr. Caitlin Martinez EO # 0.3 103/ul Normal 0.0-0.7 [facility] Comment on above: Performed By: #### U RCX #### [facility] [address] [place] [address] Dr. Caitlin Martinez Eosinophils/100 WBC (Bld) 2.3 % Normal 0.9-7.0 [facility] Comment on above: Performed By: #### U RCX #### [facility] [address] [address] [address] Caitlin Martinez Erythrocyte distribution width (RBC) [Ratio] 14.6 % Normal 11.0-15.0 [facility] Comment on above: Performed By: #### U RCX #### [facility] [address] [place] [address] Dr. Caitlin Martinez Hematocrit (Bld) [Volume fraction] 28.8 % Critically low 36.0-48.0 [facility] Comment on above: Performed By: #### U RCX #### [facility] [address] [place] [address] Dr. Caitlin Martinez Hemoglobin (Bld) [Mass/Vol] 9.0 g/dL Critically low 12.0-16.0 [facility] Comment on above: Performed By: #### U RCX #### [facility] [address] [place] [address] Dr. Caitlin Martinez IG # 0.20 10e3/ul Critically high 0.00-0.03 [facility] Comment on above: Performed By: #### U RCX #### [facility] [address] [place] [address] Dr. Caitlin Martinez IG % 1.5 % Critically high 0.0-0.5 [facility] Comment on above: Performed By: #### U RCX #### [facility] [address] [place] [address] Dr. Caitlin Martinez LYMPH # 3.0 103/ul Normal 1.2-3.8 [facility] Comment on above: Performed By: #### U RCX #### [facility] [address] [place], [place] [id number] Dr. Caitlin Martinez Lymphocytes/100 WBC (Bld) 22.2 % Normal 20.5-60.0 [facility] Comment on above: Performed By: #### U RCX #### [facility] [address] [place] [address] Dr. Caitlin Martinez MANUAL DIFF REQ NO Normal [facility] Comment on above: Performed By: #### U RCX #### [facility] [address] [place] [address] Dr. Caitlin Martinez MCH (RBC) [Entitic mass] 26.2 pg Critically low 26.7-34.0 [facility] Comment on above: Performed By: #### U RCX #### [facility] [address] [place] [address] Dr. Caitlin Martinez MCHC (RBC) [Mass/Vol] 31.3 g/dL Normal 29.9-35.2 [facility] Comment on above: Performed By: #### U RCX #### [facility] [address] [place] [address] Dr. Caitlin Martinez MCV (RBC) [Entitic vol] 83.7 fL Normal 81.0-99.0 [facility] Comment on above: Performed By: #### U RCX #### [facility] [address] [place] [address] Dr. Caitlin Martinez MONO # 1.3 103/ul Critically high 0.3-0.8 [facility] Comment on above: Performed By: #### U RCX #### [facility] [address] [place] [address] Dr. Caitlin Martinez Monocytes/100 WBC (Bld) 9.8 % Normal 1.7-12.0 [facility] Comment on above: Performed By: #### U RCX #### [facility] [address] [place] [address] Dr. Caitlin Martinez NEUT # 8.5 103/ul Critically high 1.4-6.5 [facility] Comment on above: Performed By: #### U RCX #### [facility] [address] [address] [address] Caitlin Martinez Neutrophils/100 WBC (Bld) 63.6 % Normal 43.0-75.0 [facility] Comment on above: Performed By: #### U RCX #### [facility] [address] [place] [address] Dr. Caitlin Martinez Platelet mean volume (Bld) [Entitic vol] 9.1 fL Critically low 9.5-13.5 [facility] Comment on above: Performed By: #### U RCX #### [facility] [address] [place] [address] Dr. Caitlin Martinez PLT 355 103/ul Normal 150-450 [facility] Comment on above: Performed By: #### U RCX #### [facility] [address] [place] [address] Dr. Caitlin Martinez RBC 3.44 106/ul Critically low 4.20-5.40 [facility] Comment on above: Performed By: #### U RCX #### [facility] [address] [place] [address] Dr. Caitlin Martinez WBC 13.3 103/ul Critically high 4.0-11.0 [facility] Comment on above: Performed By: #### U RCX #### [facility] [address] [place] [address] Dr. Caitlin Martinez SCREENon 02-09-2022 SCREEN Negative Normal [facility] Comment on above: Performed By: #### F ETSCRN #### [facility] [address] [place] [address] Dr. Caitlin Martinez CBC AUTO DIFFon 02-08-2022 BASO # 0.1 103/ul Normal 0.0-0.1 [facility] Comment on above: Performed By: #### U RCX #### [facility] [address] [place] [address] Dr. Caitlin Martinez Basophils/100 WBC (Bld) 0.4 % Normal 0.2-2.0 [facility] Comment on above: Performed By: #### U RCX #### [facility] [address] [address] [address] Caitlin Martinez EO # 0.3 103/ul Normal 0.0-0.7 [facility] Comment on above: Performed By: #### U RCX #### [facility] [address] [address] [address] Caitlin Martinez Eosinophils/100 WBC (Bld) 2.6 % Normal 0.9-7.0 [facility] Comment on above: Performed By: #### U RCX #### [facility] [address] [place] [address] Dr. Caitlin Martinez Erythrocyte distribution width (RBC) [Ratio] 14.7 % Normal 11.0-15.0 [facility] Comment on above: Performed By: #### U RCX #### [facility] [address] [place] [address] Dr. Caitlin Martinez Hematocrit (Bld) [Volume fraction] 30.6 % Critically low 36.0-48.0 [facility] Comment on above: Performed By: #### U RCX #### [facility] [address] [place] [address] Dr. Caitlin Martinez Hemoglobin (Bld) [Mass/Vol] 9.7 g/dL Critically low 12.0-16.0 [facility] Comment on above: Performed By: #### U RCX #### [facility] [address] [place] [address] Dr. Caitlin Martinez IG # 0.15 10e3/ul Critically high 0.00-0.03 [facility] Comment on above: Performed By: #### U RCX #### [facility] [address] [place] [address] Dr. Caitlin Martinez IG % 1.3 % Critically high 0.0-0.5 [facility] Comment on above: Performed By: #### U RCX #### [facility] [address] [place] [address] Dr. Caitlin Martinez LYMPH # 2.8 103/ul Normal 1.2-3.8 [facility] Comment on above: Performed By: #### U RCX #### [facility] [address] [address] [address] Caitlin Martinez Lymphocytes/100 WBC (Bld) 24.8 % Normal 20.5-60.0 [facility] Comment on above: Performed By: #### U RCX #### [facility] [address] [address] [address] Caitlin Martinez MANUAL DIFF REQ NO Normal [facility] Comment on above: Performed By: #### U RCX #### [facility] [address] [address] [address] Caitlin Martinez MCH (RBC) [Entitic mass] 26.6 pg Critically low 26.7-34.0 [facility] Comment on above: Performed By: #### U RCX #### [facility] [address] [place] [address] Dr. Caitlin aMrtinez MCHC (RBC) [Mass/Vol] 31.7 g/dL Normal 29.9-35.2 [facility] Comment on above: Performed By: #### U RCX #### [facility] [address] [place] [address] Dr. Caitlin Martinez MCV (RBC) [Entitic vol] 83.8 fL Normal 81.0-99.0 [facility] Comment on above: Performed By: #### U RCX #### [facility] [address] [place] [address] Dr. Caitlin Martinez MONO # 1.0 103/ul Critically high 0.3-0.8 [facility] Comment on above: Performed By: #### U RCX #### [facility] [address] [place] [address] Dr. Caitlin Martinez Monocytes/100 WBC (Bld) 8.7 % Normal 1.7-12.0 [facility] Comment on above: Performed By: #### U RCX #### [facility] [address] [place] [address] Dr. Caitlin Martinez NEUT # 7.0 103/ul Critically high 1.4-6.5 [facility] Comment on above: Performed By: #### U RCX #### [facility] [address] [address] [address] Caitlin Martinez Neutrophils/100 WBC (Bld) 62.2 % Normal 43.0-75.0 [facility] Comment on above: Performed By: #### U RCX #### [facility] [address] [address] [address] Caitlin Martinez Platelet mean volume (Bld) [Entitic vol] 9.0 fL Critically low 9.5-13.5 [facility] Comment on above: Performed By: #### U RCX #### [facility] [address] [address] [address] Caitlin Martinez PLT 373 103/ul Normal 150-450 [facility] Comment on above: Performed By: #### U RCX #### [facility] [address] [place] [address] Dr. Caitlin Martinez RBC 3.65 106/ul Critically low 4.20-5.40 [facility] Comment on above: Performed By: #### U RCX #### [facility] [address] [address] [address] Caitlin Martinez WBC 11.3 103/ul Critically high 4.0-11.0 [facility] Comment on above: Performed By: #### U RCX #### [facility] [address] [place] [address] Dr. Caitlin Martinez [facility]16 SARS-CoV-2 (COVID-19) RNA JONATAN+probe Ql (Unsp spec) Not detected Normal NOT DETECTED [facility] Comment on above: Result Comment: When [...] for this test is supported by the [place] of Health and Human Service's declaration that [...] used). Performed By: #### C BC #### [facility] [address] [place] [address] Dr. Caitlin Martinez DIRECT COOMBSon 02-08-2022 DIRECT EDWINA Negative Normal [facility] Comment on above: Performed By: #### D IRCMB, ABID #### [facility] [address] [place] [address] Dr. Caitlin Martinez DRUG SCREEN RAPID (URINE)on 02-08-2022 AMP Negative Normal NEGATIVE [facility] Comment on above: Performed By: #### C BC #### [facility] [address] [place] [address] Dr. Caitlin Martinez BAR Negative Normal NEGATIVE [facility] Comment on above: Performed By: #### C BC #### [facility] [address] [place] [address] Dr. Caitlin Martinez BUP Negative Normal NEGATIVE [facility] Comment on above: Performed By: #### C BC #### [facility] [address] [place] [address] Dr. Caitlin Martinez BZO Negative Normal NEGATIVE [facility] Comment on above: Performed By: #### C BC #### [facility] [address] [place] [address] Dr. Caitlin Martinez JEANNA Negative Normal NEGATIVE [facility] Comment on above: Performed By: #### C BC #### [facility] [address] [place] [address] Dr. Caitlin Martinez CUT-OFFS SEE BELOW Normal [facility] Comment on above: Result [...] ng/mL Performed By: #### C BC #### [facility] [address] [place] [address] Dr. Caitlin Martinez DRUG CUT HEADER DRUG CLASS TEST SYSTEM CUT-OFF CONCENTRATIONS ARE FOLLOWS: Normal [facility] Comment on above: Performed By: #### C BC #### [facility] [address] [place] [address] Dr. Caitlin Martinez mAMP Negative Normal NEGATIVE [facility] Comment on above: Performed By: #### C BC #### [facility] [address] [place] [address] Dr. Caitlin Martinez MTD Negative Normal NEGATIVE [facility] Comment on above: Performed By: #### C BC #### [facility] [address] [place] [address] Dr. Caitlin Martinez OPI Negative Normal NEGATIVE [facility] Comment on above: Performed By: #### C BC #### [facility] [address] [place] [address] Dr. Caitlin Martinez OXY Negative Normal NEGATIVE [facility] Comment on above: Performed By: #### C BC #### [facility] [address] [place] [address] Dr. Caitlin Martinez PCP Negative Normal NEGATIVE [facility] Comment on above: Performed By: #### C BC #### [facility] [address] [place] [address] Dr. Caitlin Martinez PPX Negative Normal NEGATIVE [facility] Comment on above: Performed By: #### C BC #### [facility] [address] [place] [address] Dr. Caitlin Martinez TCA Negative Normal NEGATIVE [facility] Comment on above: Performed By: #### C BC #### [facility] [address] [place] [address] Dr. Caitlin Martinez THC Negative Normal NEGATIVE [facility] Comment on above: Performed By: #### C BC #### [facility] [address] [place] [address] Dr. Caitlin Martinez TYPE AND SCREENon 02-08-2022 TYPE AND SCREEN Negative Normal [facility] Comment on above: Performed By: #### I HORACIO #### [facility] [address] [place] [address] Dr. Caitlin Martinez US PREG BIOPHY W [...] DAVID BLACKMON Date: 2022-02-05 16:28 Normal [facility] AMNISUREon 01-25-2022 AMNISURE Negative Normal NEGATIVE [facility] Comment on above: Performed By: #### A MNI #### [facility] [address] [place] [address] Dr. Caitlin Martinez CULTURE URINEon 01-25-2022 CULTURE URINE Culture Observations: No growth Normal [facility] Comment on above: Performed By: #### U RCX #### [facility] [address] [place] [address] Dr. Caitlin Martinez UA (CLEAN/CATCH) SPECIAL SERVICE OFFICER/MICRO I F IND.on 01-25-2022 Bilirubin Ql (U) Negative Normal NEGATIVE [facility] Comment on above: Performed By: #### C VDTBH #### [facility] [address] [place] [address] Dr. Caitlin Martinez Clarity (U) SL CLOUDY Abnormal CLEAR [facility] Comment on above: Performed By: #### C VDTBH #### [facility] [address] [place] [address] Dr. Caitlin Martinez Color (U) LT. YELLOW Normal YELLOW [facility] Comment on above: Performed By: #### C VDTBH #### [facility] [address] [place] [address] Dr. Caitlin Martinez Glucose Ql (U) Negative Normal NEGATIVE [facility] Comment on above: Performed By: #### C VDTBH #### [facility] [address] [place] [address] Dr. Caitlin Martinez Hemoglobin Ql (U) TRACE-INTACT Abnormal NEGATIVE [place] Comment on above: Performed By: #### C VDTB #### [facility] [address] [place] [address] Dr. Caitlin Martinez Ketones Ql (U) Negative Normal NEGATIVE [facility] Comment on above: Performed By: #### C VDTBH #### [facility] [address] [place] [address] Dr. Caitlin Martinez LEUKOCYTES TRACE Abnormal NEGATIVE [facility] Comment on above: Performed By: #### C VDTBH #### [facility] [address] [place] [address] Dr. Caitlin Martinez Nitrite Ql (U) Negative Normal NEGATIVE [facility] Comment on above: Performed By: #### C VDTBH #### [facility] [address] [place] [address] Dr. Caitlin Martinez pH (U) 6.5 [pH] Normal 5-9 [facility] Comment on above: Performed By: #### C VDTBH #### [facility] [address] [place] [address] Dr. Caitlin Martinez SPEC GRAVITY 1.020 Normal 1.005-<=1.02 5 [facility] Comment on above: Performed By: #### C VDTBH #### [facility] [address] [place] [address] Dr. Caitlin Martinez UA PROTEIN Negative Normal NEGATIVE/ TRACE [facility] Comment on above: Performed By: #### C VDTBH #### [facility] [address] [place] [address] Dr. Caitlin Martinez UR MICRO IND INDICATED Normal [facility] Comment on above: Performed By: #### C VDTBH #### [facility] [address] [place] [address] Dr. Caitlin Martinez Urobilinogen Qn (U) 0.2 {Barbara'U}/dL Normal 0.2 - 1. 0 [facility] Comment on above: Performed By: #### C VDTBH #### [facility] [address] [place] [address] Dr. Caitlin Martinez URINE MICROSCOPIC ONLYon BACTERIA MODERATE Abnormal NONE SEEN [facility] Comment on above: Performed By: #### C VDTBH #### [facility] [address] [place] [address] Dr. Caitlin Martinez Bacteria identified Cx Nom (U) INDICATED Normal [facility] Comment on above: Performed By: #### C VDTBH #### [facility] [address] [place] [address] Dr. Caitlin Martinez CAST NONE SEEN Normal NONE SEEN [facility] Comment on above: Performed By: #### C VDTBH #### [facility] [address] [place] [address] Dr. Caitlin Martinez Crystals LM Nom (Urine sed) NONE SEEN Normal NONE SEEN [facility] Comment on above: Performed By: #### C VDTBH #### [facility] [address] [place] [address] Dr. Caitlin Martinez Epithelial cells LM Ql (Urine sed) FEW Abnormal NONE SEEN /RARE [facility] Comment on above: Performed By: #### C VDTBH #### [facility] [address] [place] [address] Dr. Caitlin Martinez MUCOUS TRACE Abnormal NONE SEEN [facility] Comment on above: Performed By: #### C VDTBH #### [facility] [address] [place] [address] Dr. Caitlin Martinez RBC 2-5 Abnormal 0-2 [facility] Comment on above: Performed By: #### C VDTBH #### [facility] [address] [place] [address] Dr. Caitlin Martinez WBC 0-2 Abnormal NONE SEEN [facility] Comment on above: Performed By: #### C VDTBH #### [facility] [address] [place] [address] Dr. Caitlin Martinez AMYLASEon 01-16-2022 Amylase [Catalytic activity/Vol] 49 U/L Normal 25-115 [facility] Comment on above: Performed By: #### C VDTBH #### [facility] [address] [place] [address] Dr. Caitlin Martinez BUNon 01-16-2022 Urea nitrogen [Mass/Vol] 3.0 mg/dL Critically low 7.0-18.0 [facility] Comment on above: Performed By: #### C BC #### [facility] [address] [place] [address] Dr. Caitlin Martinez CBC AUTO DIFFon 01-16-2022 BASO # 0.1 103/ul Normal 0.0-0.1 [facility] Comment on above: Performed By: #### U RCX #### [facility] [address] [place] [address] Dr. Caitlin Martinez Basophils/100 WBC (Bld) 0.6 % Normal 0.2-2.0 [facility] Comment on above: Performed By: #### U RCX #### [facility] [address] [place] [address] Dr. Caitlin Martinez EO # 0.3 103/ul Normal 0.0-0.7 [facility] Comment on above: Performed By: #### U RCX #### [facility] [address] [place] [address] Dr. Caitlin Martinez Eosinophils/100 WBC (Bld) 2.6 % Normal 0.9-7.0 [facility] Comment on above: Performed By: #### U RCX #### [facility] [address] [place] [address] Dr. Caitlin Martinez Erythrocyte distribution width (RBC) [Ratio] 14.4 % Normal 11.0-15.0 [facility] Comment on above: Performed By: #### U RCX #### [facility] [address] [address] [address] Caitlin Martinez Hematocrit (Bld) [Volume fraction] 28.4 % Critically low 36.0-48.0 [facility] Comment on above: Performed By: #### U RCX #### [facility] [address] [address] [address] Caitlin Martinez Hemoglobin (Bld) [Mass/Vol] 9.0 g/dL Critically low 12.0-16.0 [facility] Comment on above: Performed By: #### U RCX #### [facility] [address] [place] [address] Dr. Caitlin Martinez IG # 0.11 10e3/ul Critically high 0.00-0.03 [facility] Comment on above: Performed By: #### U RCX #### [facility] [address] [place] [address] Dr. Caitlin Martinez IG % 1.1 % Critically high 0.0-0.5 [facility] Comment on above: Performed By: #### U RCX #### [facility] [address] [place] [address] Dr. Caitlin Martinez LYMPH # 2.2 103/ul Normal 1.2-3.8 [facility] Comment on above: Performed By: #### U RCX #### [facility] [address] [place] [address] Dr. Caitlin Martinez Lymphocytes/100 WBC (Bld) 21.0 % Normal 20.5-60.0 [facility] Comment on above: Performed By: #### U RCX #### [facility] [address] [place] [address] Dr. Caitlin Martinez MANUAL DIFF REQ NO Normal [facility] Comment on above: Performed By: #### U RCX #### [facility] [address] [place] [address] Dr. Caitlin Martinez MCH (RBC) [Entitic mass] 28.2 pg Normal 26.7-34.0 [facility] Comment on above: Performed By: #### U RCX #### [facility] [address] [address] [address] Caitlin Martinez MCHC (RBC) [Mass/Vol] 31.7 g/dL Normal 29.9-35.2 [facility] Comment on above: Performed By: #### U RCX #### [facility] [address] [address] [address] Caitlin Martinez MCV (RBC) [Entitic vol] 89.0 fL Normal 81.0-99.0 [facility] Comment on above: Performed By: #### U RCX #### [facility] [address] [place] [address] Dr. Caitlin Martinez MONO # 0.9 103/ul Critically high 0.3-0.8 [facility] Comment on above: Performed By: #### U RCX #### [facility] [address] [place] [address] Dr. Caitlin Martinez Monocytes/100 WBC (Bld) 8.9 % Normal 1.7-12.0 [facility] Comment on above: Performed By: #### U RCX #### [facility] [address] [place] [address] Dr. Caitlin Martinez NEUT # 6.8 103/ul Critically high 1.4-6.5 [facility] Comment on above: Performed By: #### U RCX #### [facility] [address] [place] [address] Dr. Caitlin Martinez Neutrophils/100 WBC (Bld) 65.8 % Normal 43.0-75.0 [facility] Comment on above: Performed By: #### U RCX #### [facility] [address] [address] [address] Caitlin Martinez Platelet mean volume (Bld) [Entitic vol] 8.6 fL Critically low 9.5-13.5 [facility] Comment on above: Performed By: #### U RCX #### [facility] [address] [place] [address] Dr. Caitlin Martinez PLT 322 103/ul Normal 150-450 [facility] Comment on above: Performed By: #### U RCX #### [facility] [address] [address] [address] Caitlin Martinez RBC 3.19 106/ul Critically low 4.20-5.40 [facility] Comment on above: Performed By: #### U RCX #### [facility] [address] [address] [address] Caitlin Martinez WBC 10.3 103/ul Normal 4.0-11.0 [facility] Comment on above: Performed By: #### U RCX #### [facility] [address] [address] [address] Caitlin Martinez CREATININEon 01-16-2022 Creatinine [Mass/Vol] 0.55 mg/dL Normal 0.55-1.02 [facility] Comment on above: Performed By: #### C VDTBH #### [facility] [address] [address] [address] Caitlin Martinez EGFR-AF PARAGUAYAN >60 Normal >=60 [facility] Comment on above: Performed By: #### C VDTBH #### [facility] [address] [address] [address] Caitlin Martinez EGFR-NON AF PARAGUAYAN >60 Normal >=60 [facility] Comment on above: Performed By: #### C VDTBH #### [facility] [address] [address] [address] Caitlin Martinez ELECTROLYTESon 01-16-2022 Anion gap [Moles/Vol] 13.6 mmol/L Normal [facility] Comment on above: Performed By: #### C VDTBH #### [facility] [address] [address] [address] Caitlin Martinez Chloride [Moles/Vol] 106 mmol/L Normal 98-107 [facility] Comment on above: Performed By: #### C VDTBH #### [facility] [address] [address] [address] Caitlin Martinez CO2 [Moles/Vol] 22.9 mmol/L Normal 21.0-32.[address] [facility] Comment on above: Performed By: #### C VDTBH #### [facility] [address] [place] [address] Dr. Caitlin Martinez Potassium [Moles/Vol] 3.5 mmol/L Normal 3.5-5.1 [facility] Comment on above: Performed By: #### C VDTBH #### [facility] [address] [place] [address] Dr. Caitlin Martinez Sodium [Moles/Vol] 139 mmol/L Normal 136-145 [facility] Comment on above: Performed By: #### C VDTBH #### [facility] [address] [place] [address] Dr. Caitlin Martinez LIPASEon 01-16-2022 Lipase [Catalytic activity/Vol] 66.0 U/L Critically low 73.0-393.0 [facility] Comment on above: Performed By: #### C BC #### [facility] [address] [place] [address] Dr. Caitlin Martinez SGOTon 01-16-2022 AST [Catalytic activity/Vol] 12 U/L Critically low 15-37 [facility] Comment on above: Performed By: #### C VDTBH #### [facility] [address] [place] [address] Dr. Caitlin Martinez SGPTon 01-16-2022 ALT [Catalytic activity/Vol] 9 U/L Critically low 14-59 [facility] Comment on above: Performed By: #### C VDTBH #### [facility] [address] [place] [address] Dr. Caitlin Martinez CBC AUTO DIFFon 01-15-2022 BASO # 0.1 103/ul Normal 0.0-0.1 [facility] Comment on above: Performed By: #### C VDTBH #### [facility] [address] [place] [address] Dr. Caitlin Martinez Basophils/100 WBC (Bld) 0.4 % Normal 0.2-2.0 [facility] Comment on above: Performed By: #### C VDTB #### [facility] [address] [place] [address] Dr. Caitlin Martinez EO # 0.2 103/ul Normal 0.0-0.7 [facility] Comment on above: Performed By: #### C VDTBH #### [facility] [address] [place] [address] Dr. Caitlin Martinez Eosinophils/100 WBC (Bld) 1.4 % Normal 0.9-7.0 [facility] Comment on above: Performed By: #### C VDTBH #### [facility] [address] [place] [address] Dr. Caitlin Martinez Erythrocyte distribution width (RBC) [Ratio] 14.1 % Normal 11.0-15.0 [facility] Comment on above: Performed By: #### C VDTBH #### [facility] [address] [place] [address] Dr. Caitlin Martinez Hematocrit (Bld) [Volume fraction] 28.4 % Critically low 36.0-48.0 [facility] Comment on above: Performed By: #### C VDTBH #### [facility] [address] [place] [address] Dr. Caitlin Martinez Hemoglobin (Bld) [Mass/Vol] 9.0 g/dL Critically low 12.0-16.0 [facility] Comment on above: Performed By: #### C VDTBH #### [facility] [address] [place] [address] Dr. Caitlin Martinez IG # 0.18 10e3/ul Critically high 0.00-0.03 [facility] Comment on above: Performed By: #### C VDTBH #### [facility] [address] [place] [address] Dr. Caitlin Martinez IG % 1.3 % Critically high 0.0-0.5 [facility] Comment on above: Performed By: #### C VDTBH #### [facility] [address] [place] [address] Dr. Caitlin Martinez LYMPH # 2.4 103/ul Normal 1.2-3.8 [facility] Comment on above: Performed By: #### C VDTBH #### [facility] [address] [place] [address] Dr. Caitlin Martinez Lymphocytes/100 WBC (Bld) 16.8 % Critically low 20.5-60.0 [facility] Comment on above: Performed By: #### C VDTBH #### [facility] [address] [place] [address] Dr. Caitlin Martinez MANUAL DIFF REQ NO Normal [facility] Comment on above: Performed By: #### C VDTBH #### [facility] [address] [place] [address] Dr. Caitlin Martinez MCH (RBC) [Entitic mass] 27.9 pg Normal 26.7-34.0 [facility] Comment on above: Performed By: #### C VDTBH #### [facility] [address] [place] [address] Dr. Caitlin Martinez MCHC (RBC) [Mass/Vol] 31.7 g/dL Normal 29.9-35.2 [facility] Comment on above: Performed By: #### C VDTBH #### [facility] [address] [place] [address] Dr. Caitlin Martinez MCV (RBC) [Entitic vol] 87.9 fL Normal 81.0-99.0 [facility] Comment on above: Performed By: #### C VDTBH #### [facility] [address] [place] [address] Dr. Caitlin Martinez MONO # 0.9 103/ul Critically high 0.3-0.8 [facility] Comment on above: Performed By: #### C VDTBH #### [facility] [address] [place] [address] Dr. Caitlin Martinez Monocytes/100 WBC (Bld) 6.7 % Normal 1.7-12.0 [facility] Comment on above: Performed By: #### C VDTBH #### [facility] [address] [place] [address] Dr. Caitlin Martinez NEUT # 10.3 103/ul Critically high 1.4-6.5 [facility] Comment on above: Performed By: #### C VDTBH #### [facility] [address] [address] [address] Caitlin Martinez Neutrophils/100 WBC (Bld) 73.4 % Normal 43.0-75.0 [facility] Comment on above: Performed By: #### C VDTBH #### [facility] [address] [address] [address] Caitlin Martinez Platelet mean volume (Bld) [Entitic vol] 9.0 fL Critically low 9.5-13.5 [facility] Comment on above: Performed By: #### C VDTBH #### [facility] [address] [place] [address] Dr. Caitlin Martinez PLT 318 103/ul Normal 150-450 [facility] Comment on above: Performed By: #### C VDTBH #### [facility] [address] [place] [address] Dr. Caitlin Martinez RBC 3.23 106/ul Critically low 4.20-5.40 [facility] Comment on above: Performed By: #### C VDTBH #### [facility] [address] [place] [address] Dr. Caitlin Martinez WBC 14.0 103/ul Critically high 4.0-11.0 [facility] Comment on above: Performed By: #### C VDTBH #### [facility] [address] [place] [address] ABD/PELVIS WO CONon [...] DAVID BLACKMON Date: 2022-01-15 16:31 Normal [facility] CULTURE URINEon 01-15-2022 CULTURE URINE Culture Observations: LIGHT GROWTH OF MIXED GENITAL COSME. NO POTENTIAL PATHOGENS SEEN. Normal [facility] Comment on above: Performed By: #### U RCX #### [facility] [address] [place] [address] Dr. Caitlin Martinez UA (CLEAN/CATCH) SPECIAL SERVICE OFFICER/MICRO I F IND.on 01-15-2022 Bilirubin Ql (U) Negative Normal NEGATIVE [facility] Comment on above: Performed By: #### C BC #### [facility] [address] [place] [address] Dr. Caitlin Martinez Clarity (U) CLEAR Normal CLEAR [facility] Comment on above: Performed By: #### C BC #### [facility] [address] [place] [address] Dr. Caitlin Martinez Color (U) LT. YELLOW Normal YELLOW [facility] Comment on above: Performed By: #### C BC #### [facility] [address] [place] [address] Dr. Caitlin Martinez Glucose Ql (U) Negative Normal NEGATIVE [facility] Comment on above: Performed By: #### C BC #### [facility] [address] [place] [address] Dr. Caitlin Maritnez Hemoglobin Ql (U) Negative Normal NEGATIVE [facility] Comment on above: Performed By: #### C BC #### [facility] [address] [place] [address] Dr. Caitlin Martinez Ketones Ql (U) Negative Normal NEGATIVE [facility] Comment on above: Performed By: #### C BC #### [facility] [address] [place] [address] Dr. Caitlin Martinez LEUKOCYTES TRACE Abnormal NEGATIVE [facility] Comment on above: Performed By: #### C BC #### [facility] [address] [place] [address] Dr. Caitlin Martinez Nitrite Ql (U) Negative Normal NEGATIVE [facility] Comment on above: Performed By: #### C BC #### [facility] [address] [place] [address] Dr. Caitlin Martinez pH (U) 7.0 [pH] Normal 5-9 [facility] Comment on above: Performed By: #### C BC #### [facility] [address] [place] [address] Dr. Caitlin Martinez SPEC GRAVITY 1.010 Normal 1.005-<=1.02 5 [facility] Comment on above: Performed By: #### C BC #### [facility] [address] [place] [address] Dr. Caitlin Martinez UA PROTEIN Negative Normal NEGATIVE/ TRACE [facility] Comment on above: Performed By: #### C BC #### [facility] [address] [place] [address] Dr. Caitlin Martinez UR MICRO IND INDICATED Normal [facility] Comment on above: Performed By: #### C BC #### [facility] [address] [place] [address] Dr. Caitlin Martinez Urobilinogen Qn (U) 0.2 {Barbara'U}/dL Normal 0.2 - 1. 0 [facility] Comment on above: Performed By: #### C BC #### [facility] [address] [place] [address] Dr. Caitlin Martinez URINE MICROSCOPIC ONLYon BACTERIA MODERATE Abnormal NONE SEEN [facility] Comment on above: Performed By: #### C BC #### [facility] [address] [place] [address] Dr. Caitlin Martinez Bacteria identified Cx Nom (U) INDICATED Normal [facility] Comment on above: Performed By: #### C BC #### [facility] [address] [place] [address] Dr. Caitlin Martinez CAST NONE SEEN Normal NONE SEEN [facility] Comment on above: Performed By: #### C BC #### [facility] [address] [place] [address] Dr. Caitlin Martinez Crystals LM Nom (Urine sed) NONE SEEN Normal NONE SEEN [facility] Comment on above: Performed By: #### C BC #### [facility] [address] [place] [address] Dr. Caitlin Martinez Epithelial cells LM Ql (Urine sed) MODERATE Abnormal NONE SEEN /RARE [facility] Comment on above: Performed By: #### C BC #### [facility] [address] [place] [address] Dr. Caitlin Martinez MUCOUS NONE SEEN Normal NONE SEEN [facility] Comment on above: Performed By: #### C BC #### [facility] [address] [place] [address] Dr. Caitlin Martinez RBC NONE SEEN Abnormal 0-2 [facility] Comment on above: Performed By: #### C BC #### [facility] [address] [place] [address] Dr. Caitlin Martinez WBC 2-5 Abnormal NONE SEEN [facility] Comment on above: Performed By: #### C BC #### [facility] [address] [place] [address] Dr. Caitlin Martinez US APPENDIXon 01-15-2022 US [...] DAVID BLACKMON Date: 2022-01-15 14:14 Normal [facility] US PREG GROWTHon 01-15-2022 US PREG [...] DAVID BLACKMON Date: 2022-01-15 10:59 Normal [facility] US PREG PLACENTAon US PREG PLACENTA [...] DAVID BLACKMON Date: 2022-01-15 10:57 Normal [facility] UA (CLEAN/CATCH) SPECIAL SERVICE OFFICER/MICRO I F IND.on 12-29-2021 Bilirubin Ql (U) Negative Normal NEGATIVE [facility] Comment on above: Performed By: #### C BC #### [facility] [address] [place] [address] Dr. Caitlin Martinez Clarity (U) CLEAR Normal CLEAR [facility] Comment on above: Performed By: #### C BC #### [facility] [address] [place] [address] Dr. Caitlin Martinez Color (U) LT. YELLOW Normal YELLOW [facility] Comment on above: Performed By: #### C BC #### [facility] [address] [place] [address] Dr. Caitlin Martinez Glucose Ql (U) Negative Normal NEGATIVE [facility] Comment on above: Performed By: #### C BC #### [facility] [address] [place] [address] Dr. Caitlin Martinez Hemoglobin Ql (U) Negative Normal NEGATIVE [facility] Comment on above: Performed By: #### C BC #### [facility] [address] [place] [address] Dr. Caitlin Martinez Ketones Ql (U) Negative Normal NEGATIVE [facility] Comment on above: Performed By: #### C BC #### [facility] [address] [place] [address] Dr. Caitlin Martinez LEUKOCYTES Negative Normal NEGATIVE [facility] Comment on above: Performed By: #### C BC #### [facility] [address] [place] [address] Dr. Caitlin Martinez Nitrite Ql (U) Negative Normal NEGATIVE [facility] Comment on above: Performed By: #### C BC #### [facility] [address] [place] [address] Dr. Caitlin Martinez pH (U) 6.5 [pH] Normal 5-9 [facility] Comment on above: Performed By: #### C BC #### [facility] [address] [place] [address] Dr. Caitlin Martinez SPEC GRAVITY 1.020 Normal 1.005-<=1.02 5 [facility] Comment on above: Performed By: #### C BC #### [facility] [address] [place] [address] Dr. Caitlin Martinez UA PROTEIN Negative Normal NEGATIVE/ TRACE [facility] Comment on above: Performed By: #### C BC #### [facility] [address] [place] [address] Dr. Caitlin Martinez UR MICRO IND NOT INDICATED Normal [facility] Comment on above: Performed By: #### C BC #### [facility] [address] [place] [address] Dr. Caitlin Martinez Urobilinogen Qn (U) 1.0 {Barbara'U}/dL Normal 0.2 - 1. 0 [facility] Comment on above: Performed By: #### C BC #### [facility] [address] [place] [address] Dr. Caitlin Martinez US PREG CERVICAL LENGTHon [...] KIRK OATES Date: 2021-12-29 15:53 Normal [facility] UA (CLEAN/CATCH) SPECIAL SERVICE OFFICER/MICRO I F IND.on 12-18-2021 Bilirubin Ql (U) Negative Normal NEGATIVE [facility] Comment on above: Performed By: #### C BC #### [facility] [address] [place] [address] Dr. Caitlin Martinez Clarity (U) CLEAR Normal CLEAR [facility] Comment on above: Performed By: #### C BC #### [facility] [address] [place] [address] Dr. Caitlin Martinez Color (U) YELLOW Normal YELLOW [facility] Comment on above: Performed By: #### C BC #### [facility] [address] [place] [address] Dr. Caitlin Martinez Glucose Ql (U) Negative Normal NEGATIVE [facility] Comment on above: Performed By: #### C BC #### [facility] [address] [place] [address] Dr. Caitlin Martinez Hemoglobin Ql (U) Negative Normal NEGATIVE [facility] Comment on above: Performed By: #### C BC #### [facility] [address] [place] [address] Dr. Caitlin Martinez Ketones Ql (U) TRACE Abnormal NEGATIVE [facility] Comment on above: Performed By: #### C BC #### [facility] [address] [place] [address] Dr. Caitlin Martinez LEUKOCYTES Negative Normal NEGATIVE [facility] Comment on above: Performed By: #### C BC #### [facility] [address] [place] [address] Dr. Caitlin Martinez Nitrite Ql (U) Negative Normal NEGATIVE [facility] Comment on above: Performed By: #### C BC #### [facility] [address] [place] [address] Dr. Caitlin Martinez pH (U) 6.0 [pH] Normal 5-9 [facility] Comment on above: Performed By: #### C BC #### [facility] [address] [place] [address] Dr. Caitlin Martinez SPEC GRAVITY 1.025 Normal 1.005-<=1.02 5 [facility] Comment on above: Performed By: #### C BC #### [facility] [address] [place] [address] Dr. Caitlin Martinez UA PROTEIN Negative Normal NEGATIVE/ TRACE [facility] Comment on above: Performed By: #### C BC #### [facility] [address] [place] [address] Dr. Caitlin Martinez UR MICRO IND NOT INDICATED Normal [facility] Comment on above: Performed By: #### C BC #### [facility] [address] [place] [address] Dr. Caitlin Martinez Urobilinogen Qn (U) 4 {Barbara'U}/dL Abnormal 0.2 - 1.0 [facility] Comment on above: Performed By: #### C BC #### [facility] [address] [place] [address] Dr. Caitlin Martinez RHOGAMon 11-28-2021 RHOGAM Status Information Issued Quantity 1 Product ID Rh Immune Globulin Lot Number [id number] Issue Date/Time [id number] Normal [facility] Comment on above: Performed By: #### I HORACIO #### [facility] [address] [place] [address] Dr. Caitlin Martinez TYPE AND SCREENon 11-27-2021 TYPE AND SCREEN Negative Normal [facility] Comment on above: Performed By: #### T NS #### [facility] [address] [place] [address] Dr. Caitlin Martinez CULTURE URINEon 11-23-2021 CULTURE URINE Culture Observations: No growth Normal [facility] Comment on above: Performed By: #### I HORACIO #### [facility] [address] [place] [address] Dr. Caitlin Martinez UA (CLEAN/CATCH) SPECIAL SERVICE OFFICER/MICRO I F IND.on 11-23-2021 Bilirubin Ql (U) Negative Normal NEGATIVE [facility] Comment on above: Performed By: #### U RCX #### [facility] [address] [place] [address] Dr. Caitlin Martinez Clarity (U) CLEAR Normal CLEAR [facility] Comment on above: Performed By: #### U RCX #### [facility] [address] [place] [address] Dr. Caitlin Martinez Color (U) LT. YELLOW Normal YELLOW [facility] Comment on above: Performed By: #### U RCX #### [facility] [address] [place] [address] Dr. Caitlin Martinez Glucose Ql (U) Negative Normal NEGATIVE [facility] Comment on above: Performed By: #### U RCX #### [facility] [address] [place] [address] Dr. Caitlin Martinez Hemoglobin Ql (U) Negative Normal NEGATIVE [facility] Comment on above: Performed By: #### U RCX #### [facility] [address] [place] [address] Dr. Caitlin Martinez Ketones Ql (U) Negative Normal NEGATIVE [facility] Comment on above: Performed By: #### U RCX #### [facility] [address] [place] [address] Dr. Caitlin Martinez LEUKOCYTES SMALL Abnormal NEGATIVE [facility] Comment on above: Performed By: #### U RCX #### [facility] [address] [place] [address] Dr. Caitlin Martinez Nitrite Ql (U) Negative Normal NEGATIVE [facility] Comment on above: Performed By: #### U RCX #### [facility] [address] [place] [address] Dr. Caitlin Martinez pH (U) 6.5 [pH] Normal 5-9 [facility] Comment on above: Performed By: #### U RCX #### [facility] [address] [place] [address] Dr. Caitlin Martinez SPEC GRAVITY 1.010 Normal 1.005-<=1.02 5 [facility] Comment on above: Performed By: #### U RCX #### [facility] [address] [place] [address] Dr. Caitlin Martinez UA PROTEIN Negative Normal NEGATIVE/ TRACE [facility] Comment on above: Performed By: #### U RCX #### [facility] [address] [place] [address] Dr. Caitlin Martinez UR MICRO IND INDICATED Normal [facility] Comment on above: Performed By: #### U RCX #### [facility] [address] [place] [address] Dr. Caitlin Martinez Urobilinogen Qn (U) 0.2 {Barbara'U}/dL Normal 0.2 - 1. 0 [facility] Comment on above: Performed By: #### U RCX #### [facility] [address] [place] [address] Dr. Caitlin Martinez URINE MICROSCOPIC ONLYon BACTERIA TRACE Abnormal NONE SEEN [facility] Comment on above: Performed By: #### U RCX #### [facility] [address] [place] [address] Dr. Caitlin Martinez Bacteria identified Cx Nom (U) INDICATED Normal [facility] Comment on above: Performed By: #### U RCX #### [facility] [address] [place] [address] Dr. Caitlin Martinez CAST SEEN Abnormal NONE SEEN [facility] Comment on above: Performed By: #### U RCX #### [facility] [address] [place] [address] Dr. Caitlin Martinez Crystals LM Nom (Urine sed) SEEN Abnormal NONE SEEN [facility] Comment on above: Performed By: #### U RCX #### [facility] [address] [place] [address] Dr. Caitlin Martinez Epithelial cells LM Ql (Urine sed) RARE Normal NONE SEEN /RARE [facility] Comment on above: Performed By: #### U RCX #### [facility] [address] [place] [address] Dr. Caitlin Martinez MUCOUS TRACE Abnormal NONE SEEN [facility] Comment on above: Performed By: #### U RCX #### [facility] [address] [place] [address] Dr. Caitlin Martinez RBC 0-2 Normal 0-2 [facility] Comment on above: Performed By: #### U RCX #### [facility] [address] [place] [address] Dr. Caitlin Martinez WBC 2-5 Abnormal NONE SEEN [facility] Comment on above: Performed By: #### U RCX #### [facility] [address] [place] [address] Dr. Caitlin Martinez GLUCOSE - 1HRon 11-06-2021 Glucose [Mass/Vol] 131 mg/dL Critically high 74-106 T [facility] Comment on above: Performed By: #### I HORACIO #### [facility] [address] [place] [address] Dr. Caitlin Martinez HEMOGRAM AND PLATELon 2021 Hematocrit (Bld) [Volume fraction] 34.2 % Critically low 36.0-48.0 [facility] Comment on above: Performed By: #### C BC #### [facility] [address] [place] [address] Dr. Caitlin Martinez Hemoglobin (Bld) [Mass/Vol] 11.3 g/dL Critically low 12.0-16.0 [facility] Comment on above: Performed By: #### C BC #### [facility] [address] [place] [address] Dr. Caitlin Martinez MCH (RBC) [Entitic mass] 31.7 pg Normal 26.7-34.0 [facility] Comment on above: Performed By: #### C BC #### [facility] [address] [place] [address] Dr. Caitlin Martinez MCHC (RBC) [Mass/Vol] 33.0 g/dL Normal 29.9-35.2 [facility] Comment on above: Performed By: #### C BC #### [facility] [address] [place] [address] Dr. Caitlin Martinez MCV (RBC) [Entitic vol] 96.1 fL Normal 81.0-99.0 [facility] Comment on above: Performed By: #### C BC #### [facility] [address] [place] [address] Dr. Caitlin Martinez PLT 372 103/ul Normal 150-450 [facility] Comment on above: Performed By: #### C BC #### [facility] [address] [place] [address] Dr. Caitlin Martinez RBC 3.56 106/ul Critically low 4.20-5.40 [facility] Comment on above: Performed By: #### C BC #### [facility] [address] [place] [address] Dr. Caitlin Martinez WBC 10.1 103/ul Normal 4.0-11.0 [facility] Comment on above: Performed By: #### C BC #### [facility] [address] [place] [address] Dr. Caitlin Martinez CHLAMYDIA/GONOCOCCUS JONATAN ( AB/URINE/PAPon 10-31-2021 Chlamydia trachomatis, JONATAN Negative Normal Negative [facility] Comment on above: Performed By: #### C BC #### [facility] [address] [place] [address] Dr. Caitlin Martinez Neisseria gonorrhoeae, JONATAN Negative Normal Negative [facility] Comment on above: Performed By: #### C BC #### [facility] [address] [place] [address] Dr. Caitlin Martinez VAGINITIS/VAGINOSIS DNA PROB Paramjit 10-29-2021 Shannon species Negative Normal Negative [facility] Comment on above: Performed By: #### U RCX #### [facility] [address] [address] [address] Caitlin Martinez Gardnerella vaginalis Negative Normal Negative [facility] Comment on above: Performed By: #### U RCX #### [facility] [address] [address] [address] Caitlin Martinez Trichomonas vaginalis Negative Normal Negative [facility] Comment on above: Performed By: #### U RCX #### [facility] [address] [place] [address] Dr. Caitlin Martinez US PREG INCOMPLETE ANATOMYon [...] DAVID BLACKMON Date: 2021-10-26 12:05 Normal [facility] CBC W MANUAL DIFFon 10-25-19 22 ATYPICAL LYMPH # Normal [facility] Comment on above: Performed By: #### U RCX #### [facility] [address] [place] [address] Dr. Caitlin Martinez ATYPICAL LYMPH % Normal [facility] Comment on above: Performed By: #### U RCX #### [facility] [address] [place] [address] Dr. Caitlin Martinez BAND # 0.1 103/ul Normal 0.0-0.3 [facility] Comment on above: Performed By: #### U RCX #### [facility] [address] [place] [address] Dr. Caitlin Martinez BAND % 1 % Normal 0-5 [facility] Comment on above: Performed By: #### U RCX #### [facility] [address] [place] [address] Dr. Caitlin Martinez BASOM # 0.00 103/ul Normal 0.00-0.10 [facility] Comment on above: Performed By: #### U RCX #### [facility] [address] [place] [address] Dr. Caitlin Martinez BASOM % 0.0 % Critically low 0.2-2.0 [facility] Comment on above: Performed By: #### U RCX #### [facility] [address] [place] [address] Dr. Caitlin Martinez BLAST # Normal [facility] Comment on above: Performed By: #### U RCX #### [facility] [address] [place] [address] Dr. Caitlin Martinez BLAST % Normal [facility] Comment on above: Performed By: #### U RCX #### [facility] [address] [place] [address] Dr. Caitlin Martinez CORRECTED WBC Normal 4.0-11.0 [facility] Comment on above: Performed By: #### U RCX #### [facility] [address] [place] [address] Dr. Caitlin Martinez EOS # 0.12 103/ul Normal 0.00-0.70 [facility] Comment on above: Performed By: #### U RCX #### [facility] [address] [place] [address] Dr. Caitlin Martinez EOS% 1.0 % Normal 0.9-7.0 [facility] Comment on above: Performed By: #### U RCX #### [facility] [address] [place] [address] Dr. Caitlin Martinez HCT 31.5 % Critically low 36.0-48.0 [facility] Comment on above: Performed By: #### U RCX #### [facility] [address] [place] [address] Dr. Caitlin Martinez HGB 10.5 g/dl Critically low 12.0-16.0 [facility] Comment on above: Performed By: #### U RCX #### [facility] [address] [place] [address] Dr. Caitlin Martinez LYMPHM # 0.37 103/ul Critically low 1.20-3.80 [facility] Comment on above: Performed By: #### U RCX #### [facility] [address] [place] [address] Dr. Caitlin Martinez LYMPHM% 3.0 % Critically low 20.5-60.0 [facility] Comment on above: Performed By: #### U RCX #### [facility] [address] [place] [address] Dr. Caitlin Martinez MCH 31.8 pg Normal 26.7-34.0 [facility] Comment on above: Performed By: #### U RCX #### [facility] [address] [place] [address] Dr. Caitlin Martinez MCHC 33.3 g/dl Normal 29.9-35.2 [facility] Comment on above: Performed By: #### U RCX #### [facility] [address] [place] [address] Dr. Caitlin Martinez MCV 95.5 fL Normal 81.0-99.0 [facility] Comment on above: Performed By: #### U RCX #### [facility] [address] [place] [address] Dr. Caitlin Martinez METAMYELOCYTE # Normal [facility] Comment on above: Performed By: #### U RCX #### [facility] [address] [place] [address] Dr. Caitlin Martinez METAMYELOCYTE % Normal [facility] Comment on above: Performed By: #### U RCX #### [facility] [address] [place] [address] Dr. Caitlin Martinez MONOM# 0.73 103/ul Normal 0.30-0.80 [facility] Comment on above: Performed By: #### U RCX #### [facility] [address] [place] [address] Dr. Caitlin Martinez MONOM% 6.0 % Normal 1.7-12.0 [facility] Comment on above: Performed By: #### U RCX #### [facility] [address] [address] [address] Caitlin Martinez MPV 9.5 fL Normal 9.5-13.5 [facility] Comment on above: Performed By: #### U RCX #### [facility] [address] [address] [address] Caitlin Martinez MYELOCYTE # Normal [facility] Comment on above: Performed By: #### U RCX #### [facility] [address] [address] [address] Caitlin Martinez MYELOCYTE % Normal [facility] Comment on above: Performed By: #### U RCX #### [facility] [address] [place] [address] Dr. Caitlin Martinez NRBC Normal [facility] Comment on above: Performed By: #### U RCX #### [facility] [address] [address] [address] Caitlin Martinez PLT 275 103/ul Normal 150-450 [facility] Comment on above: Performed By: #### U RCX #### [facility] [address] [address] [address] Caitlin Martinez RBC 3.30 106/ul Critically low 4.20-5.40 [facility] Comment on above: Performed By: #### U RCX #### [facility] [address] [place] [address] Dr. Caitlin Martinez RDW 13.6 % Normal 11.0-15.0 [facility] Comment on above: Performed By: #### U RCX #### [facility] [address] [address] [address] Caitlin Martinez SEG # 10.86 103/ul Critically high 1.40-6.50 [facility] Comment on above: Performed By: #### U RCX #### [facility] [address] [address] [address] Caitlin Martinez SEG % 89.0 % Critically high 43.0-75.0 [facility] Comment on above: Performed By: #### U RCX #### [facility] [address] [place] [address] Dr. Caitlin Martinez WBC 12.2 103/ul Critically high 4.0-11.[address] [facility] Comment on above: Performed By: #### U RCX #### [facility] [address] [place] [address] Dr. Caitlin Martinez ER URINE PROFILEon 2 Bilirubin Ql (U) Negative Normal NEGATIVE [facility] Comment on above: Performed By: #### C VDTBH #### [facility] [address] [place] [address] Dr. Caitlin Martinez Clarity (U) SL CLOUDY Abnormal CLEAR [facility] Comment on above: Performed By: #### C VDTBH #### [facility] [address] [place] [address] Dr. Caitlin Martinez Color (U) YELLOW Normal YELLOW [facility] Comment on above: Performed By: #### C VDTBH #### [facility] [address] [place] [address] Dr. Caitlin PENNAHNadine A micrscopic examination will be performed if indicated. Normal [facility] Comment on above: Performed By: #### C VDTBH #### [facility] [address] [place] [address] Dr. Caitlin Martinez Glucose Ql (U) Negative Normal NEGATIVE [facility] Comment on above: Performed By: #### C VDTBH #### [facility] [address] [place] [address] Dr. Caitlin Martinez Hemoglobin Ql (U) Negative Normal NEGATIVE [facility] Comment on above: Performed By: #### C VDTBH #### [facility] [address] [place] [address] Dr. Caitlin Martinez Ketones Ql (U) >=80 Abnormal NEGATIVE [facility] Comment on above: Performed By: #### C VDTBH #### [facility] [address] [place] [address] Dr. Caitlin Martinez LEUKOCYTES Negative Normal NEGATIVE [facility] Comment on above: Performed By: #### C VDTBH #### [facility] [address] [place] [address] Dr. Caitlin Martinez Nitrite Ql (U) Negative Normal NEGATIVE [facility] Comment on above: Performed By: #### C VDTBH #### [facility] [address] [place] [address] Dr. Caitlin Martinez pH (U) 6.0 [pH] Normal 5-9 [facility] Comment on above: Performed By: #### C VDTBH #### [facility] [address] [place] [address] Dr. Caitlin Martinez SPEC GRAVITY 1.020 Normal 1.005-<=1.02 5 [facility] Comment on above: Performed By: #### C VDTBH #### [facility] [address] [place] [address] Dr. Caitlin Martinez UA PROTEIN Negative Normal NEGATIVE/ TRACE [facility] Comment on above: Performed By: #### C VDTBH #### [facility] [address] [place] [address] Dr. Caitlin Martinez UR MICRO IND NOT INDICATED Normal [facility] Comment on above: Performed By: #### C VDTBH #### [facility] [address] [place] [address] Dr. Caitlin Martinez Urobilinogen Qn (U) 1.0 {Barbara'U}/dL Normal 0.2 - 1. 0 [facility] Comment on above: Performed By: #### C VDTBH #### [facility] [address] [place] [address] Dr. Caitlin Martinez INFLUENZA A AND B AGon 10-24 INFLUBNEG SEE BELOW Normal [facility] Comment on above: Result Comment: Nega tive for Flu B protein antigen. Infection due to Flu B cannot be ruled out. Flu B antigen in the sample may be below the detection limit of the test. Performed By: #### C VDTBH #### [facility] [address] [place] [address] Dr. Caitlin Martinez INFLUENZA A AG Positive Abnormal NEGATIVE SEE COMMENT [facility] Comment on above: Performed By: #### C VDTBH #### [facility] [address] [place] [address] Dr. Caitlin Martinez INFLUENZA B AG Negative Normal NEGATIVE SEE COMMENT [facility] Comment on above: Performed By: #### C VDTBH #### [facility] [address] [place] [address] Dr. Caitlin Martinez INFLUPOSH SEE BELOW Normal [facility] Comment on above: Result Comment: NOTE : Live attenuated influenzae vaccine viruses can cause a positive result for a rapid influenza diagnostic test if administered up to 7 days prior to rapid testing. Performed By: #### C VDTBH #### [facility] [address] [place] [address] Dr. Caitlin Martinez INTERNAL CONTROLS Within Normal Limits Normal Wi thin Normal Limits [facility] Comment on above: Performed By: #### C VDTBH #### [facility] [address] [place] [address] Dr. Caitlin Martinez PROF CHEM 8 (BAS METB)on Anion gap [Moles/Vol] 14.4 mmol/L Normal [facility] Comment on above: Performed By: #### D IRCMB, ABID #### [facility] [address] [place] [address] Dr. Caitlin Martinez Calcium [Mass/Vol] 8.4 mg/dL Critically low 8.5-10.1 [facility] Comment on above: Performed By: #### D IRCMB, ABID #### [facility] [address] [place] [address] Dr. Caitlin Martinez Chloride [Moles/Vol] 101 mmol/L Normal 98-107 [facility] Comment on above: Performed By: #### D IRCMB, ABID #### [facility] [address] [place] [address] Dr. Caitlin Martinez CO2 [Moles/Vol] 19.7 mmol/L Critically low 21.0-32.0 [facility] Comment on above: Performed By: #### D IRCMB, ABID #### [facility] [address] [place] [address] Dr. Caitlin Martinez Creatinine [Mass/Vol] 0.55 mg/dL Normal 0.55-1.02 [facility] Comment on above: Performed By: #### D IRCMB, ABID #### [facility] [address] [address] [address] Caitlin Martinez EGFR-AF PARAGUAYAN >60 Normal >=60 [facility] Comment on above: Performed By: #### D IRCMB, ABID #### [facility] [address] [address] [address] Caitlin Martinez EGFR-NON AF PARAGUAYAN >60 Normal >=60 [facility] Comment on above: Performed By: #### D IRCMB, ABID #### [facility] [address] [place] [address] Dr. Caitlin Martinez Glucose [Mass/Vol] 91 mg/dL Normal 74-106 [facility] Comment on above: Performed By: #### D IRCMB, ABID #### [facility] [address] [place] [address] Dr. Caitlin Martinez Potassium [Moles/Vol] 3.1 mmol/L Critically low 3.5-5.1 [facility] Comment on above: Performed By: #### D IRCMB, ABID #### [facility] [address] [place] [address] Dr. Caitlin Martinez Sodium [Moles/Vol] 132 mmol/L Critically low 136-145 [facility] Comment on above: Performed By: #### D IRCMB, ABID #### [facility] [address] [place] [address] Dr. Caitlin Martinez Urea nitrogen [Mass/Vol] 7.0 mg/dL Normal 7.0-18.0 [facility] Comment on above: Performed By: #### D IRCMB, ABID #### [facility] [address] [place] [address] Dr. Caitlin Martinez Urea nitrogen/Creatinine [Mass ratio] 12.7 mg/mg Normal [facility] Comment on above: Performed By: #### D IRCMB, ABID #### [facility] [id number] Caitlin Martinez US PREG ANATOMY SINGLEon [...] DAVID BLACKMON Date: 2021-09-28 09:17 Normal [facility] CHEMISTRYOrdered By: SYSTEM SYSTEM on 06-21-2021 [place] [address] m[IU]/mL High 1 - 3 mIU/mL [facility] [...] gas pattern is nonobstructive. There is a bcspvldp-ui-bpdze amount of stool burden. IMPRESSION: No malalignment. No acute compression deformity. Ugwtokid-md-gctkj amount of stool burden. [employer] Workstation ID: [id number] Dictated by: LUBA GARCÍA on [facility] Mar 05, 2020 4:09:51 PM EDT Transcribed by: KELVIN GUADALUPE on [facility] Mar 05, 2020 4:17:18 PM EDT Finalized by: LUBA GARCÍA on [facility] Mar 05, 2020 7:52:11 PM EDT [facility] Comment on above: Order Comment: Injur y/Trauma or Illness?:Illness/Other How long have you had these symptoms (acute/chronic)?:Chronic Reason for exam?:low back pain History of cancer?:n Surgeries, chemotherapy, or radiation?:n Type of Exam?:Initial Additional signs and symptoms?:fibromyalgia XR Lumbar Spine 2-3 Views (S tandard)on 03-05-2020 No malalignment. No acute compression deformity. Ogwoehvg-tx-gnqmm amount of stool burden. [employer] Workstation ID: [id number] [facility] EXAMINATION: XR LUMBAR SPINE 2-3 VIEWS [...] gas pattern is nonobstructive. There is a ylktwhzs-iy-jtava amount of stool burden. [facility] Interface, Rad In Jose Luis Speechq [...] gas pattern is nonobstructive. There is a hsjfznum-vq-vwfhi amount of stool burden. IMPRESSION: No malalignment. No acute compression deformity. Ihccoxbm-af-eubvb amount of stool burden. [employer] Workstation ID: [id number] [facility] CNOVon 10-28-2018 CNOV Office Visit (OLVIN) MICHELLE GODINEZ ([id number]) 1995 F Date Time Provider Department 10/28/18 [...] Rebecca Lange MD [address] [place] [address] Consult requested for an opinion regarding the [...] TIME: 12:44 PM Referring Provider: REBECCA LANGE [[id number]] Allergies As of Date: 10/28/2018 (No Known [...] Encounter Status:Closed by YOAN RODRIGUEZ MD on 5/15/19 Normal [facility] PROGRESSon 05-14-2019 Protein mass conc HNO ID: [id number] Author: Yoan Rodriguez Service: ? Author Type: Physician Type: Progress Notes Filed: 10/29/2018 3:03 PM Note Text: VASCULAR SURGERY INITIAL CONSULT SERVICE DATE: 10/28/2018 SERVICE TIME: 12:44 PM PRIMARY CARE PHYSICIAN: Rebecca Lange MD REFERRING PROVIDER: Rebecca Lange MD [address] [facility] [phone] Consult requested for an opinion regarding the [...] October 28, 2018 TIME: 12:44 PM Normal [facility] Vital Signs Date Time Vital Sign Value Performing Clinician Facility 12-31-2024 09:29-0400 Body mass index (BMI) [Ratio] 31.67 kg/m2 Betsy BUCHANAN Work Phone: [facility] 12-31-2024 09:29-0400 Body weight 81.1 kg Betsy BUCHANAN Work Phone: [facility] 12-31-2024 09:29-0400 Diastolic blood pressure 60 mm[Hg] Betsy BUCHANAN Work Phone: [facility] 12-31-2024 09:29-0400 Systolic blood pressure 100 mm[Hg] Betsy BUCHANAN Work Phone: [facility] 11-30-2024 11:11-0400 Body mass index (BMI) [Ratio] 31.67 kg/m2 Edward Justen DO Work Phone: [facility] 11-30-2024 11:11-0400 Body weight 81.1 kg Edward Justen DO Work Phone: [facility] 11-30-2024 11:11-0400 Diastolic blood pressure 60 mm[Hg] Edward Justen DO Work Phone: [facility] 11-30-2024 11:11-0400 Systolic blood pressure 100 mm[Hg] Edward Justen DO Work Phone: [facility] 10-19-2024 13:21-0400 Body mass index (BMI) [Ratio] 32.42 kg/m2 Edward Justen DO Work Phone: [facility] 10-19-2024 13:21-0400 Body weight 83.01 kg Edward Justen DO Work Phone: [facility] 10-19-2024 13:21-0400 Diastolic blood pressure 72 mm[Hg] Edward Justen DO Work Phone: [facility] 10-19-2024 13:21-0400 Systolic blood pressure 118 mm[Hg] Edward Justen DO Work Phone: [facility] 09-15-2024 11:48-0400 Body mass index (BMI) [Ratio] 32.74 kg/m2 Edward Justen DO Work Phone: [facility] 09-15-2024 11:48-0400 Body weight 83.83 kg Edward Justen DO Work Phone: [facility] 09-15-2024 11:48-0400 Diastolic blood pressure 70 mm[Hg] Edward Justen DO Work Phone: [facility] 09-15-2024 11:48-0400 Systolic blood pressure 112 mm[Hg] Edward Justen DO Work Phone: [facility] 05-07-2024 14:16-0500 Blood Pressure Location LEYDI JEFFERS [facility] 05-07-2024 14:16-0500 Diastolic blood pressure 82 mm[Hg] LEYDI JEFFERS [facility] 05-07-2024 14:16-0500 Heart rate 96 /min LEYDI JEFFERS [facility] 05-07-2024 14:16-0500 Systolic blood pressure 134 mm[Hg] LEYDI JEFFERS [facility] 04-21-2024 14:26-0500 Body mass index (BMI) [Ratio] 32.62 kg/m2 Edward Justen DO Work Phone: [facility] 04-21-2024 14:26-0500 Body weight 83.52 kg Edward Justen DO Work Phone: [facility] 04-21-2024 14:26-0500 Diastolic blood pressure 64 mm[Hg] Edward Justen DO Work Phone: [facility] 04-21-2024 14:26-0500 Systolic blood pressure 104 mm[Hg] Edward Justen DO Work Phone: [facility] 03-23-2024 11:38-0400 Body mass index (BMI) [Ratio] 32.24 kg/m2 Betsy BUCHANAN Work Phone: [facility] 03-23-2024 11:38-0400 Body weight 82.56 kg Betsy BUCHANAN Work Phone: [facility] 03-23-2024 11:38-0400 Diastolic blood pressure 64 mm[Hg] Betsy BUCHANAN Work Phone: [facility] 03-23-2024 11:38-0400 Systolic blood pressure 114 mm[Hg] Betsy BUCHANAN Work Phone: [facility] 03-02-2024 10:24-0400 Body height 160 cm Janie Theodore [employer] Work Phone: [facility] 03-02-2024 10:24-0400 Body mass index (BMI) [Ratio] 34.19 kg/m2 Janie Theodore [employer] Work Phone: [facility] 03-02-2024 10:24-0400 Body weight 87.54 kg Janie Theodore [employer] Work Phone: [facility] 03-02-2024 10:24-0400 Diastolic blood pressure 68 mm[Hg] Janie Theodore [employer] Work Phone: [facility] 03-02-2024 10:24-0400 Heart rate 74 /min Janiemargarita Theodore [employer] Work Phone: [facility] 03-02-2024 10:24-0400 Respiratory rate 12 /min Janiemargarita Theodore [employer] Work Phone: [facility] 03-02-2024 10:24-0400 SaO2% (BldA) [Mass fraction] 99 % Janie Theodore [employer] Work Phone: [facility] 03-02-2024 10:24-0400 Systolic blood pressure 118 mm[Hg] Janie Theodore [employer] Work Phone: [facility] 11-07-2023 13:01-0400 Body weight 76.77 kg Mitul Rdz MD Work Phone: [facility] 11-07-2023 13:01-0400 Diastolic blood pressure 53 mm[Hg] Mitul Rdz MD Work Phone: [facility] 11-07-2023 13:01-0400 Heart rate 66 /min Mitul Rdz MD Work Phone: [facility] 11-07-2023 13:01-0400 Systolic blood pressure 107 mm[Hg] Mitul Rdz MD Work Phone: [facility] 07-19-2023 09:31-0500 Body mass index (BMI) [Ratio] 26.79 kg/m2 [facility] Nurse [facility] 07-19-2023 09:31-0500 Body weight 73.03 kg [facility] Nurse [facility] 07-19-2023 09:31-0500 Diastolic blood pressure 72 mm[Hg] [facility] Nurse [facility] 07-19-2023 09:31-0500 Systolic blood pressure 118 mm[Hg] [facility] Nurse [facility] Encounters Encounter Date Encounter Type Care Provider Facility Start: 01-26-2025 ambulatory Royer Layne acility:[facility] Start: 12-31-2024 End: 12-31-2024 Bamboo flowsheet Betsy BUCHANAN Work Phone: [facility] Start: 12-31-2024 End: 12-31-2024 Bamboo flowsheet Betsy BUCHANAN Work Phone: [facility] Start: 12-31-2024 End: 12-31-2024 Postop follow up visit related to original px Betsy BUCHANAN Work Phone: [facility] Comment on above: Postoperative examin ation Start: 12-31-2024 End: 12-31-2024 ambulatory BETSY GOODWIN Not Available Start: 12-25-2024 End: 12-25-2024 Clinisync Result Encounter Edward Justen DO Work Phone: [facility] Unsolicited Start: 12-25-2024 End: 12-25-2024 Clinisync Result Encounter Edward Justen DO Work Phone: [facility] Unsolicited Start: 12-15-2024 End: 12-15-2024 ambulatory PA-Elias JEFFERS Facility:[facility] Start: 12-15-2024 End: 12-15-2024 Patient encounter procedure LEYDI JEFFERS [facility] Start: 11-30-2024 End: 11-30-2024 Office outpatient visit 15 minutes Edward Justen DO Work Phone: [facility] Comment on above: Pre-op examination; Pelvic pain; Dyspareunia in female Start: 11-30-2024 End: 11-30-2024 Preprocedural examination done Edward Justen DO Work Phone: [facility] Start: 11-30-2024 End: 11-30-2024 ambulatory EDWARD JUSTEN Not Available Start: 11-15-2024 End: 11-15-2024 ambulatory Ilir Marshall [facility] Work Phone: Start: 11-15-2024 End: 11-15-2024 Departed Referred Ilir Marshall MD Work Phone: [facility] Start: 10-19-2024 End: 10-19-2024 Bamboo flowsheet Edward Justen DO Work Phone: [facility] Start: 10-19-2024 End: 10-22-2024 Bamboo flowsheet Edward Justen DO Work Phone: [facility] Start: 10-19-2024 End: 10-22-2024 Clinisync Result Encounter Edward Justen DO Work Phone: [facility] Unsolicited Start: 10-19-2024 End: 10-19-2024 Patient encounter procedure Edward Justen DO Work Phone: [facility] Start: 10-19-2024 End: 10-19-2024 Periodic preventive [...] 15 minutes Edward Justen DO Work Phone: [facility] Comment on above: Vaginal discharge; BV (bacterial vaginosis) Start: 10-01-2024 End: 10-01-2024 ambulatory EDWARD JUSTEN Not Available Start: 09-23-2024 End: 09-23-2024 Bamboo flowsheet Betsy BUCHANAN Work Phone: [facility] Start: 09-23-2024 End: 09-23-2024 Bamboo flowsheet Betsy BUCHANAN Work Phone: [facility] Start: 09-23-2024 End: 09-23-2024 ambulatory BETSY GOODWIN Not Available Start: 09-23-2024 End: 09-23-2024 Online digital e/m svc est pt <7 d 5-10 minutes Betsy BUCHANAN Work Phone: [facility] Comment on above: Pelvic pain in femal e (Primary Dx) Start: 09-15-2024 End: 09-15-2024 Bamboo flowsheet Edward Justen DO Work Phone: [facility] Start: 09-15-2024 End: 09-16-2024 Bamboo flowsheet Edward Justen DO Work Phone: [facility] Start: 09-15-2024 End: 09-15-2024 Clinisync Result Encounter Edward Justen DO Work Phone[facility] Un[facility]olic[facility] Start: 09-15-2024 End: 09-16-2024 External Result Encounter Edward Justen DO Work Phone: [facility] Unsolicited Start: 09-15-2024 End: 09-15-2024 Office outpatient visit 15 minutes Edward Justen DO Work Phone: [facility] Comment on above: Pelvic pain in femal e; Exposure to STD; Vaginal discharge Start: 09-15-2024 End: 09-15-2024 ambulatory EDWARD JUSTEN Not Available Start: 05-28-2024 End: 05-28-2024 Office outpatient visit 15 minutes Betsy BUCHANAN Work Phone: [facility] Comment on above: Yeast infection Start: 05-28-2024 End: 05-28-2024 ambulatory BETSY ROCIO Not Available Start: 05-28-2024 End: 05-28-2024 Bamboo flowsheet Betsy BUCHANAN Work Phone: [facility] Start: 05-28-2024 End: 05-30-2024 Bamboo flowsheet Betsy BUCHANAN Work Phone: [facility] Start: 05-28-2024 End: 05-30-2024 External Result Encounter Betsy BUCHANAN Work Phone: [facility] External Department Unsolicited Start: 05-07-2024 End: 05-07-2024 ambulatory PA-Elias JEFFERS Facility:[facility] Start: 05-07-2024 End: 05-07-2024 Patient encounter procedure LEYDI JEFFERS [facility] Start: 04-24-2024 ambulatory PA-Elias JEFFERS Fac ility:[facility] Start: 04-21-2024 End: 04-21-2024 Bamboo flowsheet [...] encounter procedure DO Janie Theodore Work Phone: [facility] [address] Work Phone: Start: 04-16-2024 End: 04-16-2024 ambulatory Igor Becerra [facility] Work Phone: Start: 03-23-2024 End: 03-23-2024 [...] Start: 03-10-2024 End: 03-10-2024 ambulatory Janie Theodore [facility] Work Phone: Start: 03-10-2024 End: 03-10-2024 Departed Referred DO Janie Theodore Work Phone: [facility] Start: 03-04-2024 End: 03-05-2024 Telephone encounter [...] Janie Theodore DO Work Phone: [facility] Comment on above: Symptomatic cholelit hiasis (Primary [...] Start: 02-06-2024 End: 02-06-2024 Clinisync Result Encounter Edwrad Justen DO Work Phone: [facility] Unsolicited Start: 02-03-2024 End: 02-03-2024 ambulatory EDWARD JUSTEN Not Available Start: 01-27-2024 End: 01-27-2024 ambulatory EDWARD JUSTEN Not Available Start: 01-20-2024 End: 01-20-2024 ambulatory EDWARD JUSTEN Not Available Start: 01-06-2024 End: 01-06-2024 ambulatory BETSY GOODWIN Not Available Start: 11-20-2023 End: 11-26-2023 Telephone encounter Jennifer Smiley RN Maternal- Medicine at [facility] Start: 11-07-2023 End: 11-08-2023 [facility] Start: 11-07-2023 End: 11-07-2023 Office consultation new/estab patient 60 min Mitul Rdz MD Work Phone: Maternal- Medicine at [facility] Comment on above: 24 weeks gestation o f (Primary Dx); Single umbilical artery; Circumvallate placenta during in second trimester, antepartum; Family history of cystic fibrosis Start: 10-23-2023 End: 10-23-2023 Chart abstracting Scanning Provider External Maternal- Medicine at [facility] Start: 10-22-2023 End: 10-23-2023 Chart abstracting Mitul Rdz MD Work Phone: Maternal- Medicine at [facility] Start: 07-25-2023 Clinisync Result Encounter Edward Justen [...] Facility:[facility] Start: 04-18-2022 End: 04-19-2022 ambulatory DUARTE VALDERRAAM Facility:[facility] Start: 02-10-2022 End: 02-11-[address] [...] Start: 06-21-2021 End: 09-19-2021 Recurring Edward CAMPUZANO [facility] Start: 03-05-2020 End: 03-06-2020 Patient encounter procedure [facility] Start: 03-05-2020 End: 03-05-2020 Subsequent hospital visit by physician [facility] Work Phone: [facility] Comment on above: Chronic low back sharon n, unspecified back pain laterality, unspecified whether sciatica present Procedures Date Procedure Procedure Detail Performing Clinician Start: 12-25-2024 ALL CBC WITH AUTO DIFF Edward Justen DO Work Phone: Start: 10-19-2024 End: 10-19-2024 Urnls dip stick/tablet [...] Work Phone: Start: 03-10-2024 HCG QUALITATIVE* Janie ordoñezkett DO Work Phone: Start: 02-07-2024 ALL CBC [...] Td Vaccines (8 - Td or Tdap) [facility] Start: 09-16-2026 Screening for malign ant neoplasm of cervix Pap Smear [facility] Start: 02-15-2025 Influenza [facility] Start: 12-31-2024 End: 12-31-2024 Patient encounter procedure [facility] Comment on above: Arrived Start: 11-30-2024 End: 11-30-2024 Patient encounter procedure 11/30/2024 10:50 AM EDT Consult [facility] [address] [place] [phone] Edward Campuzano DO [address] [place] [address] [facility] Start: 11-15-2024 Urine culture [facility] Start: 11-15-2024 Bacteria identified in Urine by Culture Urine Culture [facility] Start: 11-06-2024 Tobacco Screening Tobacco Screening [facility] Start: 10-19-2024 End: 10-19-2024 Patient encounter procedure [facility] Comment on above: Arrived Start: 10-01-2024 End: 10-01-2024 Patient encounter procedure [facility] Comment on above: Arrived Start: 09-23-2024 End: 09-23-2024 Patient encounter procedure 09/23/2024 10:20 AM EDT Office Visit [facility] [address] [place] [phone] Betsy Goodwin PA [address] [place] [address] [facility] Start: 09-15-2024 End: 09-15-2025 US Pelvis US Pelvis w/ TV Imaging Routine Pelvic pain in female Expected: 09/15/2024 (Approximate), Expires: 09/15/2025 [facility] Comment on above: Expected: 09/15/2024 (Approximate), Expires: 09/15/2025 Start: 09-15-2024 End: 09-15-2024 Patient encounter procedure 09/15/2024 11:40 AM EDT Office Visit [facility] [address] [facility] [phone] Edward Campuzano, DO [address] [place] [address] Arrived [facility] Comment on above: Arrived Start: 05-28-2024 End: 05-28-2024 Patient encounter procedure 05/28/2024 2:50 PM EST Office Visit [facility] [address] [place] [phone] Betsy Goodwin, PA [address] [place] [address] Arrived [facility] Comment on above: Arrived Start: 04-21-2024 End: 04-21-2024 Patient encounter procedure 04/21/2024 1:50 PM EST Office Visit [facility] [address] [place] [phone] Edward Campuzano, DO [address] [place] [address] [facility] Start: 04-16-2024 [facility] Start: 03-23-2024 End: 03-23-2024 ambulatory 03/23/2024 11:30 AM EDT Visit [facility] [address] [place] [phone] Betsy Goodwin, PA [address] [place] [address] [facility] Start: 03-10-2024 End: 03-10-2024 Patient encounter procedure 03/10/2024 7:30 AM EDT Procedure Visit [facility] RiaJanie ochoa, [address] [place] [address] [facility] Start: 03-02-2024 End: 03-02-2024 Patient encounter procedure 03/02/2024 10:15 AM EDT Office Visit [facility] [address] [place] [address] RiaJanie ochoa DO [address] [place] [address] Arrived [facility] Comment on above: Arrived Start: 02-16-2024 Influenza vaccination [facility] Start: 12-05-2023 End: 12-05-2023 Telemedicine consultation with patient 12/05/2023 3:00 PM EDT Telemedicine Maternal- Medicine at [facility] [address] [place] [phone] [facility] [address] [place] [address] Maternal- Medicine at [facility] Start: 11-07-2023 End: 11-07-2023 Patient encounter procedure [facility] - [facility] Start: 08-19-2023 End: 08-19-2023 Patient encounter procedure 08/19/2023 11:10 AM EST Routine [facility] [address] [place] [phone] Edward Campuzano DO [address] [place] [address] [facility] Start: 07-19-2023 End: 07-19-2024 ABO/Rh ABO/Rh Lab Routine Missed menses Expected: 07/19/2023 (Approximate), Expires: 07/19/2024 [facility] Comment on above: Expected: 07/19/2023 (Approximate), Expires: 07/19/2024 Start: 07-19-2023 End: 07-19-2024 Blood type and Indirect antibody screen panel - Blood Type and screen Lab Routine Missed menses Expected: 07/19/2023 (Approximate), Expires: 07/19/2024 [facility] Work Phone: Comment on above: Expected: 07/19/2023 (Approximate), Expires: 07/19/2024 Start: 07-19-2023 End: 07-19-2024 US Pelvis transvaginal US OB transvaginal Imaging Routine Missed menses Expected: 07/19/2023 (Approximate), Expires: 07/19/2024 [facility] Comment on above: Expected: 07/19/2023 (Approximate), Expires: 07/19/2024 Start: 02-16-2020 Influenza vaccinatio n given Sequential Influenza Vaccine (#1) [facility] Start: 08-31-2015 DTaP,Tdap and Td Vaccines (1 - Tdap) DTaP,Tdap and Td Vaccines (1 - Tdap) [facility] Start: 2014 Adult BMI Screening Adult BMI Screen ing [facility] Start: 2014 Hepatitis C antibody , confirmatory test Hepatitis C Screening [facility] Start: 08-31-2011 HIV screening HIV Screening [facility] Start: 2008 Depression Screening Depression Scre ening [facility] Start: 2008 Tobacco Screening Tobacco Screening [facility] Start: 08-31-2007 Vaccination for [place] papillomavirus HPV Vaccines (1 - 2-dose series) [facility] Start: 08-31-1999 History and physical examination, annual for health maintenance Wellness Visit [facility] Start: 1996 Screening for Chlamy tristan trachomatis Chlamydia Screening [facility] Start: 1996 Screening for malign ant neoplasm of cervix Pap Smear [facility] Start: 1996 Tetanus vaccination Tetanus: Every 1 0yrs [facility] Bacteria identified in Urine by Culture Urine culture Microbiology Routine Missed menses Ordered: 07/19/2023 [facility] Comment on above: Ordered: 07/19/2023 Bacteria identified in Urine by Culture Urine culture Microbiology Routine Yeast infection Ordered: 05/28/2024 [facility] [email or web address] Work Phone: Comment on above: Ordered: 05/28/2024 CBC W Auto Different ial panel - Blood CBC and differential Lab Routine Missed menses Ordered: 07/19/2023 [facility] Comment on above: Ordered: 07/19/2023 CHLAMYDIA TRACHOMATI S (GENITO/STI) CHLAMYDIA TRACHOMATIS (GENITO/STI) Lab Routine Yeast infection Ordered: 05/28/2024 [facility] Comment on above: Ordered: 05/28/2024 CHLAMYDIA TRACHOMATI S (GENITO/STI) CHLAMYDIA TRACHOMATIS (GENITO/STI) Lab Routine Pelvic pain in female Exposure to STD Vaginal discharge Ordered: 09/15/2024 [facility] Comment on above: Ordered: 09/15/2024 Cytology Cervical or vaginal smear or scraping study Pap Smear Pathology and Cytology Routine Well woman exam with routine gynecological exam Ordered: 10/19/2024 [facility] [email or web address] Work Phone: Comment on above: Ordered: 10/19/2024 Hemoglobin A1c measurement Hemoglobin A1c Lab Routine Missed menses Ordered: 07/19/2023 [facility] Comment on above: Ordered: 07/19/2023 Hepatitis B virus surface Ag [Presence] in Serum or Plasma by Immunoassay Hepatitis B surface antigen Lab Routine Missed menses Ordered: 07/19/2023 [facility] Comment on above: Ordered: 07/19/2023 Hepatitis C virus Ab [Presence] in Serum or Plasma by Immunoassay Hepatitis C antibody Lab Routine Missed menses Ordered: 07/19/2023 [facility] Comment on above: Ordered: 07/19/2023 HIV-1/HIV-2 antigen/antibody combination immunoassay HIV-1 and HIV-2 antibodies Lab Routine Missed menses Ordered: 07/19/2023 [facility] Comment on above: Ordered: 07/19/2023 Homogenous nuclear A b pattern [Titer] in Serum [facility] Neisseria gonorrhoea e DNA [Presence] in Unspecified specimen by JONATAN with probe detection Neisseria gonorrhea DNA probe, direct Lab Routine Yeast infection Ordered: 05/28/2024 [facility] Comment on above: Ordered: 05/28/2024 Neisseria gonorrhoea e DNA [Presence] in Unspecified specimen by JONATAN with probe detection Neisseria gonorrhea DNA probe, direct Lab Routine Pelvic pain in female Exposure to STD Vaginal discharge Ordered: 09/15/2024 [facility] Comment on above: Ordered: 09/15/2024 Nuclear Ab [Titer] i n Serum [facility] Reagin Ab [Presence] in Serum by RPR RPR Lab Routine Missed menses Ordered: 07/19/2023 [facility] Comment on above: Ordered: 07/19/2023 Rubella antibody, IgG Rubella an tibody, IgG Lab Routine Missed menses Ordered: 07/19/2023 [facility] Comment on above: Ordered: 07/19/2023 SURESWAB(R) ADVANCED VAGINITIS PLUS, TMA SURESWAB(R) ADVANCED VAGINITIS PLUS, TMA Pathology and Cytology Routine Yeast infection Ordered: 05/28/2024 [facility] Comment on above: Ordered: 05/28/2024 SURESWAB(R) ADVANCED VAGINITIS PLUS, TMA SURESWAB(R) ADVANCED VAGINITIS PLUS, TMA Pathology and Cytology Routine Pelvic pain in female Exposure to STD Vaginal discharge Ordered: 09/15/2024 [facility] Work Phone: Comment on above: Ordered: 09/15/2024 End: 11-06-2024 Unlisted Lab Test Unlisted Lab Test Lab Routine 24 weeks gestation of Single umbilical artery 1 Occurrences starting 11/07/2023 until 11/06/2024 [facility] Work Phone: Comment on above: 1 Occurrences starti ng 11/07/2023 until 11/06/2024 Immunizations Immunization Date Immunization Notes Care Provider Heraclio berg 08-29-2010 hepatitis A vaccine, unspecified formulation LEYDI JEFFERS [facility] 02-23-2010 hepatitis A vaccine, unspecified formulation LEYDI JEFFERS [facility] 02-23-2010 meningococcal ACWY vaccine, unspecified formulation LEYDI JEFFERS [facility] 02-23-2010 tetanus toxoid, redu rashad diphtheria toxoid, and acellular pertussis vaccine, adsorbed LEYDI ZEYAD [facility] 02-23-2010 varicella virus vaccine MARQUIS IFER ZEYAD [facility] 08-11-2007 varicella virus vaccine MARQUIS IFER ZEYAD [facility] 02-20-2002 measles, mumps and rubella virus vaccine LEYDI ZEYAD [facility] 01-29-2002 DTaP, unspecified formulation LEYDI ZEYAD [facility] 01-29-2002 hepatitis B vaccine, pediatric or pediatric/adolescent dosage LEYDI ZEYAD [facility] 01-30-2000 DTaP, unspecified formulation LEYDI ZEYAD [facility] 01-30-2000 hepatitis B vaccine, pediatric or pediatric/adolescent dosage LEYDI ZEYAD [facility] 01-30-2000 poliovirus vaccine, unspecified formulation LEYDI ZEYAD [facility] 09-02-1997 DTaP, unspecified formulation LEYDI ZEYAD [facility] 09-02-1997 Hib, unspecified formulation LEYDI ZEYAD [facility] 09-02-1997 measles, mumps and rubella virus vaccine LEYDI ZEYAD [facility] 05-20-1997 hepatitis B vaccine, pediatric or pediatric/adolescent dosage LEYDI ZEYAD [facility] 03-02-1997 DTaP, unspecified formulation LEYDI ZEYAD [facility] 03-02-1997 Hib, unspecified formulation LEYDI ZEYAD [facility] 1996 Hib, unspecified formulation LEYDI ZEYAD [facility] 1996 Hib, unspecified formulation LEYDI ZEYAD [facility] 1996 hepatitis B vaccine, pediatric or pediatric/adolescent dosage LEYDI ZEYAD [facility] 1996 hepatitis B vaccine, pediatric or pediatric/adolescent dosage LEYDI ZEYAD [facility] Payers Date Payer Category Payer Self-pay [id number] 2022 Private Health Insurance [facility] MEDICAID [id number] 2021 Medicaid [id number]. [id number] 1996 Unknown [id number] 2.16.840.1.142045.3.579.2. 903 1996 Unknown [id number] 2.16.840.1.968742.3.579.2. 593 1996 Unknown [id number] 2.16.840.1.298095.3.579.2. 593 1996 Unknown [id number] 2.16.840.1.532523.3.579.2. 593 1996 Unknown [id number] 2.16.840.1.574284.3.579.2. 593 1996 Unknown [id number] 2.16.840.1.675074.3.579.2. 593 1996 Unknown [id number] 2.16.840.1.522568.3.579.2. 593 1996 Unknown [id number] 2.16.840.1.185109.3.579.2. 593 1996 Unknown [id number] 2.16.840.1.764238.3.579.2. 593 1996 Unknown [id number] 2.16.840.1.340097.3.579.2. 593 1996 Unknown [id number] 2.16.840.1.981529.3.579.2. 593 1996 Unknown [id number] 2.16.840.1.663616.3.579.2. 593 1996 Unknown [id number] 2.16.840.1.551255.3.579.2. 593 1996 Unknown [id number] 2.16.840.1.771462.3.579.2. 593 1996 Unknown [id number] 2.16.840.1.530995.3.579.2. 593 1996 Unknown [id number] 2.16.840.1.647276.3.579.2. 593 1996 Unknown [id number] 2.16.840.1.608765.3.579.2. 593 1996 Unknown [id number] 2.16.840.1.250033.3.579.2. 593 1996 Unknown [id number] 2.16.840.1.146454.3.579.2. 593 1996 Unknown [id number] 2.16.840.1.226106.3.579.2. 593 1996 Unknown [id number] 2.16.840.1.339808.3.579.2. 593 1996 Unknown [id number] 2.16.840.1.574647.3.579.2. 593 1996 Unknown [id number] 2.16.840.1.115413.3.579.2. 1286 1996 Unknown [id number] 2.16.840.1.867270.3.579.2. 1286 1996 Unknown [id number] 2.16.840.1.059266.3.579.2. 727 1996 Unknown [id number] 2.16.840.1.876594.3.579.2. 727 1996 Unknown [id number] 2.16.840.1.439518.3.579.2. 727 1996 Unknown [id number] 2.16.840.1.067452.3.579.2. 1259 1996 Unknown [id number] 2.16.840.1.481041.3.579.2. 1259 1996 Unknown [id number] 2.16.840.1.427044.3.579.2. 1259 1996 Unknown [id number] 2.16.840.1.402323.3.579.2. 1259 1996 Unknown [id number] 2.16.840.1.143378.3.579.2. 1258 1996 Unknown [id number] 2.840.1.188342.3.579.2. 1258 1996 Unknown [id number] 2.840.1.686402.3.579.2. 1258 1996 Unknown [id number] 2.0.1.021251.3.579.2. 1258 1996 Unknown [id number] 2.840.1.290436.3.579.2. 1258 1996 Unknown [id number] 2.0.1.120107.3.579.2. 1258 1996 Unknown [id number] 2.0.1.711752.3.579.2. 1258 1996 Unknown [id number] 2..1.493847.3.579.2. 1258 1996 Unknown [id number] 2.0.1.368350.3.579.2. 1258 1996 Unknown [id number] 2..1.637917.3.579.2. 1258 1959 Unknown [id number] 1959 Unknown [id number] Unknown COMMERCIAL COMME RCIAL MISCELLANEOUS [id number] Effective for all dates [id number] 1..840.880829.1.13.385.2. 7.3.161738.315 Unknown [id number] Unknown [id number] ..1.259292.3.579.2. 531 Unknown [id number] 2.1.999580.3.579.2. 531 Unknown [id number] 2..1.636246.3.579.2. 531 Unknown [id number] 20.1.039339.3.579.2. 531 Social History Date Type Detail Facility Tobacco smoking stat us NHIS Unknown if ever smoked [facility] Start: 1996 Sex Assigned At Not on file [facility] Start: 12-07-2022 End: 01-06-2024 Sex Assigned At Female [facility] Start: 12-07-2022 End: 12-15-2024 Tobacco smoking status NHIS Never smoked tobacco [facility] Start: 07-19-2023 End: 12-31-2024 Alcohol intake Current drinker of alcohol (finding) [facility] Start: 12-07-2022 End: 01-06-2024 History of Social function [facility] Start: 12-07-2022 Alcohol Comment 1-2 drinks less than monthly in the past year [facility] Start: 05-31-2023 [facility] Start: 1996 Sex Assigned At Female [facility] Start: 11-29-2022 Gender identity Identifies as female gender (finding) [facility] Start: 11-29-2022 Sexual orientation Heterosexual (finding) [facility] Childcare Unknown [facility] Start: 09-28-2009 End: 11-17-2024 Sex Female (finding) [facility] Sexual Orientation [facility] Functional Status Date Assessment Result Facility 05-07-2024 Functional Status Yes [facility] Clinical Notes 01-15-2022 to 12-31-2024 CHANEL Mims - 12/31/2024 9:30 AM Reta Gutierrez - 11/30/2024 10:50 AM Olivia Mondragon LPN - 10/19/2024 1:00 PM Olivia Mondragon LPN - 10/01/2024 10:20 AM EDT Note Date & Type Note Facility 12-31-2024 History of Present illness Narrative Reason for Appointment: Patient ID: Michelle Godinez is a 29 y.o. female who presents for Post-op Visit Patient presents today for 1 Week Post Op Follow Up appointment. MEDICATIONS Current Outpatient Medications Medication Instructions valACYclovir (VALTREX) 500 mg, Oral, Daily ALLERGIES Allergies Allergen Reactions Wound Dressing Adhesive Itching PROBLEMS Active Ambulatory Problems Diagnosis Date Noted UTI symptoms 08/19/2023 Vaginal discharge 08/19/2023 Encounter for screening for cervical length ([facility]) 08/19/2023 Hematuria 08/19/2023 Resolved Ambulatory Problems Diagnosis Date Noted No Resolved Ambulatory Problems Past Medical History: Diagnosis Date 6 weeks follow-up ([facility]) Acute depression BMI 30.0-30.9,adult Breast lump on right side at 7 o'clock position Fibromyalgia Gallstones Genital herpes Hip pain, right Insomnia, idiopathic Miscarriage ([facility]) 2018 Spondyloarthropathy HISTORY PAST MEDICAL HISTORY SOCIAL HISTORY Past Medical History: Diagnosis Date 6 weeks follow-up ([facility]) Acute depression BMI 30.0-30.9,adult Breast lump on right side at 7 o'clock position Fibromyalgia Gallstones Genital herpes Hematuria Hip pain, right Insomnia, idiopathic Miscarriage ([facility]) 2018 Spondyloarthropathy Social History Tobacco Use Smoking [...] Procedure Laterality Date DILATION AND CURETTAGE 2017 LAPAROSCOPY DIAGNOSTIC / BIOPSY / ASPIRATION / LYSIS 12/25/2024 LAPAROSCOPY DIAGNOSTIC / BIOPSY / ASPIRATION / LYSIS 12/25/2024 PA TONSILLECTOMY & ADENOIDECTOMY AGE 13/> 2015 WISDOM TOOTH EXTRACTION REVIEW OF SYSTEMS Review of Systems: Review of Systems Constitutional: Negative. HENT: Negative. Eyes: Negative. Respiratory: Negative. Cardiovascular: Negative. Gastrointestinal: Negative. Genitourinary: Negative. Musculoskeletal: Negative. Skin: Negative. Neurological: Negative. All other systems reviewed and are negative. Hematological: Negative. Endocrine: Negative. Allergic/Immunologic: Negative. OBJECTIVE Objective: Physical Exam Constitutional: Appearance: Normal appearance. She is normal weight. HENT: Head: Normocephalic. Cardiovascular: Rate and Rhythm: Normal rate. Pulses: Normal pulses. Pulmonary: Effort: Pulmonary effort is normal. Breath sounds: Normal breath sounds. Abdominal: Palpations: Abdomen is soft. Musculoskeletal: General: Normal range of motion. Neurological: General: No focal deficit present. Mental Status: She is alert and oriented to person, place, and time. Psychiatric: Mood and Affect: Mood normal. Behavior: Behavior normal. Thought Content: Thought content normal. Judgment: Judgment normal. Vitals and nursing note reviewed. Vitals: Estimated body mass index is 31.67 kg/m as calculated from the following: Height as of 03/02/24: 5' 3 . Weight as of this encounter: 178 lb 12.8 oz. BP: 100/60 No LMP recorded. ASSESSMENT & PLAN ICD-10-CM 1. Postoperative examination Z09 Post Op Follow Up: Patient presents today for a postop follow up after having a D&C Hysteroscopy performed at [facility] with Dr. Campuzano. Pathology results was reviewed with the patient in great detail and all restrictions have been lifted. Follow Up: Patient is to return to the office for annual exam unless needed otherwise. Documented by CHANEL Mims on behalf of: CHANEL Mims documented in this encounter [facility] 12-15-2024 Hospital Discharge instructions Patient Education 12/15/2024 [...] Treatment for this condition includes: Antibiotic medicine. Lnbz-tkk-fchaidv medicines to treat discomfort. Drinking enough water [...] Follow these instructions at home: Medicines Take gegr-yrp-vivwuqh and prescription medicines only as told by [...] provider. Document Revised: 01/08/2021 Document Reviewed: 01/13/2021 [employer] Patient Education 2023 Cinemagram. Follow Up Care 11/17/2024 09:42:27 With:[facility] Address: When: Unknown Comments:Only if needed/new problems arise. No scheduled appointment indicated at this time. [facility] [place] 12-15-2024 Note Patient Education Obstetrics and Gynecology [...] this condition includes: ??? Antibiotic medicine. ??? Yszr-jtn-vualmxf medicines to treat discomfort. ??? Drinking enough [...] these instructions at home: Medicines ??? Take zrbw-kdo-vxsymxi and prescription medicines only as told by [...] sure you di (more content not included)... [facility] 11-30-2024 History of Present illness Narrative Reason for Appointment: Patient ID: Michelle Godinez is a 29 y.o. female who presents for Pre-op Visit (/) Patient presents today for Pre Op appointment. Patient is scheduled to undergo Diagnostic Laparoscopy, possible ADINA, possible FOE, possible BSO on 12-25-[address] Campuzano at [facility]. Patient voiced that she recently had a [...] 08/19/2023 Encounter for screening for cervical length ([facility]) 08/19/2023 Hematuria 08/19/2023 Resolved Ambulatory Problems Diagnosis Date Noted No Resolved Ambulatory Problems Past Medical History: Diagnosis Date 6 weeks follow-up ([facility]) Acute depression BMI 30.0-30.9,adult Breast lump on right side at 7 o'clock position Fibromyalgia Gallstones Genital herpes Hip pain, right Insomnia, idiopathic Miscarriage ([facility]) 2018 Spondyloarthropathy HISTORY PAST MEDICAL HISTORY SOCIAL HISTORY Past Medical History: Diagnosis Date 6 weeks follow-up ([facility]) Acute depression BMI 30.0-30.9,adult Breast lump on right side at 7 o'clock position Fibromyalgia Gallstones Genital herpes Hematuria Hip pain, right Insomnia, idiopathic Miscarriage ([facility]) 2018 Spondyloarthropathy Social History Tobacco Use Smoking [...] Procedure Laterality Date DILATION AND CURETTAGE 2018 PA TONSILLECTOMY & ADENOIDECTOMY AGE 13/> 2015 WISDOM [...] nursing note reviewed. Exam conducted with a mineral ore processing labourer present. Vitals: Estimated body mass index is [...] reviewed, and patient is to proceed to [facility] OR. Follow Up: Patient is to follow up between 1-2 weeks post operative to assess proper healing and recovery from procedure. Documented by: Dr. Edward Campuzano DO documented in this encounter [facility] 10-19-2024 History of Present illness Narrative Reason [...] Diagnosis Date 6 weeks follow-up Acute depression ([facility]) BMI 30.0-30.9,adult Breast lump on right side [...] Procedure Laterality Date DILATION AND CURETTAGE 2018 PA TONSILLECTOMY & ADENOIDECTOMY AGE 13/> 2015 WISDOM [...] Edward Campuzano DO documented in this encounter [facility] 10-01-2024 History of Present illness Narrative Reason [...] Procedure Laterality Date DILATION AND CURETTAGE 2018 PA TONSILLECTOMY & ADENOIDECTOMY AGE 13/> 2015 WISDOM [...] nursing note reviewed. Exam conducted with a mineral ore processing labourer present. Vitals: Estimated body mass index is [...] weekly for 3-6 months. Medications sent to [facility] in [place] and pharmacy note added that if patient needs medication further than the first 3 months then more refills will be sent as 3 month supply has currently been sent. Patient to ensure she is scheduled for her annual appointment prior to leaving office today. Documented by Eloisa Mondragon LPN on behalf of: Edward Campuzano DO documented in this encounter [facility] 09-23-2024 History of Present illness Narrative 5Reason for Appointment: Patient ID: Michelle Godinez is a 29 y.o. female who presents for No chief complaint on file. Patient presents today via telephone call for a telehealth appointment. Patients Phone #: [phone] (mobile) Date: 09/23/2024 Time: 9:57 AM of [...] Procedure Laterality Date DILATION AND CURETTAGE 2018 PA TONSILLECTOMY & ADENOIDECTOMY AGE 13/> 2015 WISDOM [...] of: CHANEL Mims documented in this encounter [facility] 09-15-2024 History of Present illness Narrative Reason [...] Procedure Laterality Date DILATION AND CURETTAGE 2018 PA TONSILLECTOMY & ADENOIDECTOMY AGE 13/> 2015 WISDOM [...] nursing note reviewed. Exam conducted with a mineral ore processing labourer present. Vitals: Estimated body mass index is 32.74 kg/m as calculated from the following: Height as of 03/02/: 5' 3 . Weight as of this [...] Piedad Yoon LPN on behalf of: Edward Justen, DO documented in this encounter [facility] 05-28-2024 History of Present illness Narrative Reason [...] Procedure Laterality Date DILATION AND CURETTAGE 2018 PA TONSILLECTOMY & ADENOIDECTOMY AGE 13/> 2015 WISDOM [...] nursing note reviewed. Exam conducted with a mineral ore processing labourer present. Vitals: Estimated body mass index is 32.62 kg/m as calculated from the following: Height as of 03/02/24: 5' 3 . Weight as of 04/21/24: 184 lb 1.9 oz. BP: No LMP recorded. ASSESSMENT & PLAN Patient presents for vaginal discharge. Patient voiced that she has a morongo green/slime discharge on/off since delivery. Patient voiced this happens with wiping. Obtained vaginal cultures without difficulty and urine will also be sent out for culture. Terazol 7 sent to patients pharmacy to be used internally and externally. Patient will await results for further treatment if needed. Documented by Eloisa Mondragon LPN on behalf of: CHANEL Mims documented in this encounter [facility] 05-07-2024 Hospital Discharge instructions Patient [...] provider. Document Revised: 01/01/2023 Document Reviewed: 01/01/2023 [employer] Patient Education 2023 [employer]. Follow Up Care 04/24/2024 09:40:34 With:ZEYAD LEO, LEYDI Londono, URL Address: [address] [place] [address] Business (1) When: only if needed [facility] 05-07-2024 Note Patient Education Caregiving Antibiotic Medicine, [...] You have sig (more content not included)... [facility] 04-21-2024 History of Present illness Narrative [...] Diagnosis Date 6 weeks follow-up Acute depression ([facility]) BMI 30.0-30.9,adult Breast lump on right side [...] Procedure Laterality Date DILATION AND CURETTAGE 2018 PA TONSILLECTOMY & ADENOIDECTOMY AGE 13/> 2014 WISDOM [...] Edward Campuzano DO documented in this encounter [facility] 03-23-2024 History of Present illness [...] Diagnosis Date 6 weeks follow-up Acute depression ([facility]) BMI 30.0-30.9,adult Breast lump on right side [...] Procedure Laterality Date DILATION AND CURETTAGE 2018 PA TONSILLECTOMY & ADENOIDECTOMY AGE 13/ 2015 WISDOM TOOTH EXTRACTION REVIEW OF SYSTEMS [...] of: CHANEL Mims documented in this encounter [facility] 03-02-2024 History of Present illness [...] time. She states that she was at [facility] ER yesterday due to the pain and [...] Procedure Laterality Date DILATION AND CURETTAGE 2018 PA TONSILLECTOMY & ADENOIDECTOMY AGE [age] WISDOM TOOTH [...] Procedure Laterality Date DILATION AND CURETTAGE 2018 PA TONSILLECTOMY & ADENOIDECTOMY AGE 132014 WISDOM TOOTH EXTRACTION Tobacco Use: Unknown (11/07/2023) Received from [employer], [employer] Patient History Smoking Tobacco Use: Never Smokeless [...] Milka Theodore DO documented in this encounter [facility] 11-20-2023 Miscellaneous Notes Spoke with michelle and fern (spouse) about process for carrier screening for FOB. Both agreeable. Michelle was able to send copy of fern's insurance for the carrier order to be placed. Lexi Caballero aware of plan. Patient to see Lexi on 12/04 documented in this encounter [facility] 11-20-2023 Telephone encounter Note Spoke with michelle and fern (spouse) about process for carrier screening for FOB. Both agreeable. Michelle was able to send copy of fern's insurance for the carrier order to be placed. Lexi Caballero aware of plan. Patient to see Lexi on 12/04 [facility] 11-20-2023 Miscellaneous Notes Images from the [...] prior to that documented in this encounter [facility] 11-20-2023 Telephone encounter Note Images from [...] arrange for partner screening prior to that [facility] 11-07-2023 History of Present illness Narrative [...] autism FOB paternal aunt paternal grandfather ? Qqotkzxw-tzt-kmber syndrome Denies smoking, alcohol or other substance [...] regardin. 24 weeks gestation of - PNV no.[id number] 400 mcg-35 mg- 25 mg-5 mg tablet,chewable; Take 2 gummies daily during the Dispense: 60 tablet; Refill: 6 - Unlisted Lab Test; Future 2. Single umbilical artery - PNV no.[id number] 400 mcg-35 mg- 25 mg-5 mg tablet,chewable; [...] is a concern for a history of Aujijbnt-dcv-zkcuy syndrome. This can be an autosomal dominant condition. She tells me that the father of the baby does not have the condition however he has not also been tested. Mabwlhwd-mzd-mptki syndrome can present with a variable degree [...] Please monitor patient mood Please notify the ironing pleater about the family history. I also recommended to the patient to notify the ironing pleater about her other children so they can be examined and further tested if indicated Plan reviewed with patient. She vocalized understanding all questions answered. The patient is to continue with routine care in your office Thank you for allowing me to participate in her care. Please contact me if you have any concerns. Mitul Rdz MD, FACOG (she/hers) Maternal- Medicine [facility] [address] [facility] 1[address] [place] [address] [facility], the CDC, and other organizations representing maternal and public health professionals recommend that , , and lactating people and those considering receive the COVID-19 vaccination. Vaccination is the best method to reduce maternal and complications of SARS-CoV-2 infection. This document was created with [employer] technology. Though I make every effort to review the dictation as it is transcribed, on occasion the spoken word can be misinterpreted by the technology leading to inappropriate words, phrases, or sentences. This note is addressed to the requesting provider as a consultation for clinical guidance. Specific medical abbreviations are occasionally used and those are generally approved by the [place]?Board of?Obstetrics and?Gynecology?as well as?Trace owens abbreviations. The above plan of care was based solely on the diagnoses for which a consultation was requested. ?More frequent testing may be indicated based on her other medical/obstetrical conditions. The management of other or medical conditions is beyond the scope of requested consultation and will continue to be followed by the primary rn acute care or primary care provider. Note to patient: [...] yes Have you been seen here at [facility] in a previous ? no Recent ER visits or hospitalizations? Patient was seen on Saturday or Saturday for consistent contractions that have since resolved. Patient was told there were no changes to the cervix. Bring blood sugar log or meter with you today? (Please bring them with you for every visit at [facility]) Traveled outside the country in the past 6 month no Any concerns that you would like me to mention to the provider today? no Blood drawn for carrier screening testing. Patient tolerated well. Specimen sent to lab documented in this encounter [employer] 07-19-2023 History of Present illness Narrative Reason [...] Procedure Laterality Date DILATION AND CURETTAGE 2018 PA TONSILLECTOMY & ADENOIDECTOMY AGE 13/ 2015 WISDOM [...] sent for nausea to pharmacy. Pt desires Orla 21 and understands to have it done at 10 weeks along w/her labs. Follow Up: Patient is to have labs drawn at directed and return to office for initial OB appointment with provider. Patient may call office as needed with any concerns or questions. Nurse Visit Completed by: Cori Daniel MA documented in this encounter [facility] 01-16-2022 Note OB ultrasound for [...] authenticated by: Cecelia FOOTE Date: 2022-01-16 21:33 [facility] 01-16-2022 Note OB ultrasound for [...] authenticated by: Cecelia FOOTE Date: 2022-01-16 21:33 [facility] 01-15-2022 Note PROCEDURE: US KIDNEY S, 01/15/2022, [...] authenticated by: IGOR DIAZ Date: 2022-01-15 10:10 [facility] Evaluation + Plan note No data available for this section [facility] Evaluation note Diagnosis Missed menses Nausea Nausea alone [facility] noteNo assessment information [facility] Work Phone: Evaluation note* Diagnosis 6 weeks follow-up documented [facility]* Diagnosis Yeast infection Encounter for fertility planning Recurrent UTI Urinary tract infection, site not specified documented [facility]* Diagnosis Symptomatic cholelithiasis- Primary documented [facility]* Diagnosis Yeast infection documented [facility]* Diagnosis 24 weeks gestation of - 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 Circumvallate placenta during in second trimester, antepartum Family history of cystic fibrosis Family history of other endocrine and metabolic diseases [facility]* Diagnosis Pelvic pain in female Unspecified symptom associated with female genital organs Exposure to STD Vaginal discharge Leukorrhea, not specified as infective documented [facility]* Diagnosis Vaginal discharge Leukorrhea, not specified as infective BV (bacterial vaginosis) Unspecified vaginitis and vulvovaginitis [facility]* Diagnosis Well woman exam with routine gynecological exam Routine gynecological examination documented [facility]* Diagnosis Pelvic pain in female- Primary Unspecified symptom associated with female genital organs [facility]* Diagnosis Pre-op examination Pelvic pain Dyspareunia in female documented [facility]* Diagnosis Postoperative examination Follow-up examination, following unspecified surgery [facility] Dis[facility] instructions No data available for this section [facility] filedocumented in this encounter [facility] SystemInstructionsNot on filedocumented in this encounter [facility] SystemInstructions* Attachments The following attachments cannot be sent through Care Everywhere. * Preeclampsia ([place]) * Movement ([place]) [facility] note No data available for this section [facility] Summary Purpose Family History No Family History Records FoundNo Family History Records FoundNo Family History Records FoundNo Family History Records Found No data available for this section No data available for this section No Family History Records FoundNo Family History Records FoundNo Family History Records Found Advance Directives No Advanced Directives Records FoundDocuments on File Type Date 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 Advance Directives and Livin g Will 03/05/2020 2:18 PM Advance Directive Response Recorded Date/ Time Advance Directives No February 09, 2017 9:35am Assessments Diagnosis Chronic low back pain, unspecified back pain laterality, unspecified whether sciatica present Additional Source Comments INFORMATION SOURCE (unrecogn ized section and content) DATE CREATED AUTHOR 11/08/2018 [facility] DATE CREATED AUTHOR AUTHOR'S ORGANIZ ATION 03/21/2020 [facility] DATE CREATED AUTHOR AUTHOR'S ORGANIZ ATION 08/04/2022 [facility] DATE CREATED AUTHOR AUTHOR'S ORGANIZ ATION 11/09/2023 [facility] DATE CREATED AUTHOR AUTHOR'S ORGANIZ ATION 12/18/2024 [facility] DATE CREATED AUTHOR AUTHOR'S ORGANIZ ATION 01/03/2025 [facility] EPIC DATE CREATED AUTHOR AUTHOR'S ORGANIZ ATION 01/30/2025 [facility] y[facility] Reason for Visit (unrecogniz ed section and [...] time. She states that she was at [facility] ER yesterday due to the pain and they gave her pain medicine. Reason Onset Date Comments Abdominal Pain 03/04/2024 Patient schedule d for surgery on 03/10. Patient is complaining of pain radiating from breast bone to belly button and asking if this is normal. Reason Comments Vessel cord Reason Comments pelvic pain Reason Comments Follow-up Reason Comments Gynecologic Exam Reason Comments Pre-op Visit Reason Comments Post-op Visit Care Teams (unrecognized sec tion and content) Team Status: Inactive Member Role Status Dates Janie Theodore DO Attending Provider Active Star t: March 10, 2024 End: March 10, 2024 Brass Roller Relationship Specialty Start Date End Date Raudel Osborne MD [address] [place] [address] PCP - General Family Medicine 03/02/24 Team Status: Inactive Member Role Status Dates Igor Becerra MD Attending Provider Active St art: April 16, 2024 End: April 16, 2024 Brass Roller Relationship Specialty Start Date End Date Raudel Osborne MD [address] [place] [address] PCP - General Family Medicine 03/02/24 Brass Roller Relationship Specialty Start Date End Date Raudel Osborne MD [address] [place] [address] PCP - General Family Medicine 03/02/24 Edward Campuzano DO [address] [place] [address] [place] [address] PCP - [facility] 03/17/24 Brass Roller Relationship Specialty Start Date End Date Raudel Osborne MD [address] [place] [facility] [address] PCP - General Family Medicine 03/02/24 Brass Roller Relationship Specialty Start Date End Date Raudel Osborne MD [address] [place] [facility] [address] PCP - General Family Medicine 03/02/24 Brass Roller Relationship Specialty Start Date End Date Raudel Osborne MD [address] [place] [facility] [address] PCP - General Family Medicine 03/02/24 Edward Campuzano DO [address] [place] [address] [place] [address] PCP - [facility] 03/17/24 Brass Roller Relationship Specialty Start Date End Date Raudel Osborne MD [address] [place] [facility] [address] PCP - General Family Medicine 03/02/24 Edward Campuzano DO [address] [place] [address] [place] [address] PCP - [facility] 03/17/24 Brass Roller Relationship Specialty Start Date End Date Raudel Osborne MD [address] [place] [facility] [address] PCP - General Family Medicine 03/02/24 Edward Campuzano DO [address] [place] [address] PCP - [facility] 03/17/24 Brass Roller Relationship Specialty Start Date End Date Raudel Osborne MD [address] [place] [facility] [address] PCP - [facility] 03/02/24 Brass Roller Relationship Specialty Start Date End Date Raudel Osborne MD [address] [place] [facility] [address] PCP - [facility] 03/02/24 Edward Campuzano DO [address] [place] [address] PCP - [facility] 03/17/24 Brass Roller Relationship Specialty Start Date End Date Raudel Osborne MD [address] [place] [facility] [address] PCP - [facility] 03/02/24 Edward Campuzano DO [address] [place] [address] PCP - [facility] 03/17/24 Brass Roller Relationship Specialty Start Date End Date Raudel Osborne MD [address] [place] [facility] [address] PCP - [facility] 03/02/24 Edward Campuzano DO [address] [place] [address] PCP - [facility] 03/17/24 Brass Roller Relationship Specialty Start Date End Date Raudel Osborne MD PCP - [facility] 03/02/24 Edward Campuzano DO [address] [place] [address] PCP - [facility] 03/17/24 Brass Roller Relationship Specialty Start Date End Date Raudel Osborne MD PCP - [facility] 03/02/24 Edward Campuzano DO [facility] [place] [address] PCP - [facility] 03/17/24 Team Status: Inactive Member Role Status Dates Ilir Marshall MD Attending Provider Active St art: November 15, 2024 End: November 15, 2024 Brass Roller Relationship Specialty Start Date End Date Raudel Osborne MD PCP - [facility] 03/02/24 Edward Campuzano DO [facility] [place] [address] PCP [facility] 03/17/24 Brass Roller Relationship Specialty Start Date End Date Raudel Osborne MD [address] [facility] [place] [address] PCP - [facility] 03/02/24 Edward Campuzano DO [address] [place] [address] PCP - [facility] 03/17/24 Brass Roller Relationship Specialty Start Date End Date Raudel Osborne MD [address] [facility] [place] [address] PCP - General Family Medicine 03/02/24 Edward Campuzano DO [address] [place] [address] [address] [place] [id number] PCP - [facility] 03/17/24 Goals (unrecognized section and content) Goals [...] BE BASED ON THE PRIMARY CLINICAL RECORDS. [facility] [employer] provides no warranty or guarantee of the accuracy or completeness of information in this document.
== END 2025-03-05 08:38 | disposition home or self-care (01) ==
LOC: LAB 08:38
PROVIDERS: PCP Nurse Practitioner Family; Visit Provider Nurse Practitioner Family
DX: R74.8 Abnormal levels of other serum enzymes (principal)
CPT/HCPCS: 36415; 80074